=== PATIENT | female | born 1980 | race Caucasian/White ===

== ENCOUNTER 2023-03-16 09:59 | Outpatient (OUT) | payer MEDICAID, SELFPAY ==
--- NOTE | 2023-03-16 10:16 | ECG_ITS ---
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
[2023-03-16 15:18] LABS: Anion Gap 9.7; BUN Creatinine Ratio 28.6; Calcium 9.3 mg/dL (8.5-10.1); Carbon Dioxide 31.5 mmol/L (21.0-32.0); Chloride 102 mmol/L (98-107); Estimated GFR (African America >60 (>=60); Estimated GFR (Non-African Ame >60 (>=60); Glucose 177 mg/dL (74-106); Potassium 5.2 mmol/L (3.5-5.1); Sodium 138 mmol/L (136-145)
== END 2023-03-16 10:00 | disposition home or self-care (01) ==
LOC: PST 10:00
PROVIDERS: PCP Family Medicine; Visit Provider Obstetrics & Gynecology
DX: Z01.812 Encounter for preprocedural laboratory examination (principal); Z01.810 Encounter for preprocedural cardiovascular examination; N94.89 Other specified conditions associated with female genital organs and menstrual cycle; R10.2 Pelvic and perineal pain; E11.9 Type 2 diabetes mellitus without complications
CPT/HCPCS: 36415; 80048; 93005

== ENCOUNTER 2023-03-31 09:32 | Day surgery (SDC) | payer MEDICAID, SELFPAY ==
[2023-03-16 10:21] VITALS: BP 136/82; PULSE 99; RESP 20; TEMP 36.6; O2SAT 95; BMI 45.7
[2023-03-31] VITALS (11 sets, daily range): BP systolic 105–156; BP diastolic 66–94; PULSE 86–97; RESP 15–20; TEMP 35.9–36.2; O2SAT 96–99
[2023-03-31 10:15] LABS: Basophils Percent Auto 0.3 % (0.2-2.0); Eosinophils Absolute Auto 0.1 10^3/uL (0.0-0.7); Eosinophils Percent Auto 0.7 % (0.9-7.0); Hematocrit 43.9 % (36.0-48.0); Hemoglobin 14.2 g/dL (12.0-16.0); Immature Granulocytes Abs Auto 0.02 10^3/uL (0.00-0.03); Immature Granulocytes Pct Auto 0.3 % (0.0-0.5); Lymphocytes Absolute Auto 2.3 10^3/uL (1.2-3.8); Lymphocytes Percent Auto 32.1 % (20.5-60.0); Mean Corpuscular HGB Conc 32.3 g/dL (29.9-35.2); Mean Corpuscular Hemoglobin 28.6 pg (26.7-34.0); Mean Corpuscular Volume 88.5 fL (81.0-99.0); Mean Platelet Volume 9.4 fL (9.5-13.5); Monocytes Absolute Auto 0.3 10^3/uL (0.3-0.8); Monocytes Percent Auto 4.4 % (1.7-12.0); Neutrophils Absolute Auto 4.4 10^3/uL (1.4-6.5); Neutrophils Percent Auto 62.2 % (43.0-75.0); Platelet Count 233 10^3/uL (150-450); Red Blood Count 4.96 10^6/uL (4.20-5.40); Red Cell Distribution Width 12.6 % (11.0-15.0); White Blood Count 7.1 10^3/uL (4.0-11.0)
[2023-03-31 10:23] LABS: HCG Quantitative 2 mIU/mL
[2023-03-31] MEDS: LACTATED RINGER'S SOLUTION 1,000 ML 50 ML IV ×2 (10:40→12:32)
--- NOTE | 2023-03-31 12:20 | P.ON_ITS ---
Brief Operative Note Date of procedure: 03/31/23 Pre-op diagnosis: pelvic pain Post-op diagnosis: same Procedure: NAME OF PROCEDURE: [bilateral laparoscopic salpingectomy, with lt ovarian cystectomy removal of filschie clips] PROCEDURE: The patient was taken back to the Operating Room where she was given general anesthesia without difficulty. She was then prepped and draped in the normal sterile fashion after being placed in a dorsal lithotomy position. A wet sponge stick was placed into the patient's vagina. Attention was then turned to the patient's abdomen, where a scalpel was used to make a small infraumbilical incision. The S retractors were then used to dissect the underlying layers until the fascia could be seen. The fascia was then grasped with Giovanni clamps and tented up. A knife was then used to make a small incision to the fascia. The muscle was identified, at that time two sutures of #0 Vicryl on a GI needle was then used and placed through the fascia. the peritoneum was then identified and entered bluntly. The 10-4 Melba was then placed into the patient's abdomen. This was confirmed with direct visualization of the bowel, using the laparoscope. The patient's abdomen was then insufflated using approximately 4 liters of CO2 gas. Survey of the patient's abdomen demonstrated ovaries were normal in appearance as well as both tubes and uterus. A second and third rt and lt lateral ports which were 5 mm in size, was then placed after the skin incision was made under direct visualization The robotic arms were engaged. The patient's tube on the patient's right side was identified and tented up using a grasper, the vessel sealer apparatus was then used to come across the mesosalpingx from the fimbriated end to the insertion site at the uterus, the tube was then amputated and removed in its entirety along with filschie clips. This was done on the contralateral side. The tubes were the removed from the patients abdomen. lt ovarian cystectomy was performed using the ligasure. Excellent hemostasis was noted. The lateral ports were then moved under direct visualization with excellent hemostasis. All instruments were removed from the patient's abdomen. The fascia was closed using the #0 Vicryl on GI needle. The skin was closed using 4-0 Vicryl subcuticularly. All instruments were removed from the patient's vagina as well. The patient was taken out of the dorsal lithotomy position and placed in the supine position and taken to recovery in stable condition. Sponge, lap and needle counts were correct x2. please note prior to procedure copper iud was removed using ring forceps Anesthesia: KEYON Surgeon: Feliz Benz Nuclear Equipment Operator: Dahiana Zaragoza Estimated blood loss (mL): 5 Pathology: other (lt ovarian cystectomy, bilateral salpingectomy, filschie clips) Condition: stable Disposition: PACU
[2023-03-31] MEDS: PROMETHAZINE HCL 25 MG TABLET PO (12:56)
--- NOTE | 2023-03-31 14:37 | PC.NURSE ---
FOLLOWING STRAIGHT CATH OF PATIENT, 30CC OF CLEAR YELLOW URINE EMPTIED AT THIS TIME.
== END 2023-03-31 14:38 | disposition home or self-care (01) ==
PROVIDERS: PCP Family Medicine; Visit Provider Obstetrics & Gynecology
PROC: (CPT 840; principal; 2023-03-31 11:15)
DX: N83.12 Corpus luteum cyst of left ovary (principal); N83.202 Unspecified ovarian cyst, left side; R10.2 Pelvic and perineal pain; N94.89 Other specified conditions associated with female genital organs and menstrual cycle; Z79.899 Other long term (current) drug therapy; Z79.85 Long-term (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 injectable non-insulin antidiabetic drugs; E66.01 Morbid (severe) obesity due to excess calories; G47.33 Obstructive sleep apnea (adult) (pediatric); E55.9 Vitamin D deficiency, unspecified; E78.5 Hyperlipidemia, unspecified; K58.0 Irritable bowel syndrome with diarrhea; N32.81 Overactive bladder; J30.2 Other seasonal allergic rhinitis; Z90.49 Acquired absence of other specified parts of digestive tract; Z68.39 Body mass index [BMI] 39.0-39.9, adult
CPT/HCPCS: 58301; 58661; 58662; 36415; 51798; 84702; 85025; 88302; 88305; J2704

== ENCOUNTER 2023-05-22 07:24 | Outpatient (OUT) | payer MEDICAID, SELFPAY ==
--- NOTE | 2023-05-22 07:15 | NM_ITS ---
Patient: YAMILA LOZADA Exam Date: 05/22/2023 : 1980 Gender:F Ordering : DR NANCY BETTS . Admission #: [id number] Family : Order #: [id number] CLICK HERE TO VIEW EXAM RADIOLOGY REPORT PROCEDURE: NM BARRON PERF SPECT REST STR COMPARISON: None. INDICATIONS: CHEST PAIN TECHNIQUE: Exam Description: Stress/Rest one day protocol gated SPECT Rest Imagin.6 mCi Tc-99m Cardiolite IV on 05/22/2023 Stress Imaging 31.0 mCi Tc-99m Cardiolite IV on 05/22/2023 Exercise Protocol: 0.4 mg Lexiscan given IV Heart Rate (bpm): Rest: 93 Max: 139 PMHR: 78 Blood Pressure: Rest: 152/88 Max: 160/92 Symptoms: Rest and peak stress ECG findings were abnormal and the exercise portion of the study was abnormal per attending physician Dr. Calhoun due to0.5-1.0mm ST segment depression in inferior leads and T wave changes in lateral leads. For more details please see separate cardiac stress test report. FINDINGS: QUALITY OF STUDY: Excellent. PERFUSION DEFECT: None. LOCATION: N/A SIZE: N/A. SEVERITY: N/A. TYPE: N/A. WALL MOTION: Normal. LV SIZE: Normal. 56 mL. TID / TCD: None; 1.1 LVEF: Normal. Calculated EF 84%. SUMMARY: Myocardial perfusion imaging study is NORMAL. CONCLUSION: 1. Normal nuclear medicine myocardial perfusion scan. Dictated by: Kamron Gunn M.D. on 05/23/2023 at 12:26 Approved by: Kamron Gunn M.D. on 05/23/2023 at 12:50
[2023-05-22] MEDS: REGADENOSON 0.4 MG/5 ML SYRINGE IV (09:27)
--- NOTE | 2023-05-22 13:08 | PM.STRESS ---
Stress Test Stress Test Allergies Allergy/AdvReac Type Severity Reaction Status Date / Time sulfamethoxazole Allergy Hives Verified 03/16/23 10:20 [From Bactrim] trimethoprim [From Bactrim] Allergy Hives Verified 03/16/23 10:20 Requesting physician: Diaz Dalton Procedure: Lexiscan Cardiolite stress test General Information: Reason for Stress Test: Chest pain Cardiac History and Risk Factors: Denies any personal history of cardiovascular disease. Mother has history of NH. Resting 12 - Lead Electrocardiogram: Rate & rhythm: Normal sinus at a rate of 93. [place]: Right axis deviation T-waves: Inverted T-waves in V3-4 and biphasic T waves in V5 ST-segments: Normal orientation Stress Test: Protocol: Alvarez protocol was initiated, but due to difficulty walking, the exercise component was unable to achieve target heart rate and therefore canceled.? Testing was changed to Lexiscan protocol, with injection of 0.4mg Lexiscan IV push followed by Cardiolite. Blood pressure: Initial: 152/88, Maximum: 160/92 Rate & rhythm: Patient remained in sinus rhythm during the exercise and recovery portions of the study.? The maximum heart rate was 139, which was 78% of the maximum predicted heart rate 177. ST-segments & T-waves: After injection of Lexiscan, inverted T waves were prominent in V3-5 and biphasic in V6. 0.5-1mm ST segment depression was noted in II and aVF. Patient response/symptoms: There were no symptoms similar to the chief complaint. Interpretation: This is an abnormal Lexiscan stress test based on T-wave and ST segment changes noted in the inferolateral leads. No reproducible chest pain. Cardiolite imaging interpretation will be reported separately. Clinical correlation required.?
== END 2023-05-22 07:25 | disposition home or self-care (01) ==
LOC: NM 07:24
PROVIDERS: PCP Family Medicine; Visit Provider Family Medicine
DX: R07.9 Chest pain, unspecified (principal)
CPT/HCPCS: 78452; 93017; A9500; J2785

== ENCOUNTER 2023-06-26 09:46 | Outpatient (OUT) | payer MEDICAID, SELFPAY ==
--- NOTE | 2023-06-26 09:51 | MM_ITS ---
Patient: YAMILA LOZADA Exam Date: 06/26/2023 : 1980 Gender:F Ordering : DR ERIK BURR . Admission #: [id number] Family : DR Diaz Dalton . Order #: [id number] CLICK HERE TO VIEW EXAM RADIOLOGY REPORT PROCEDURE: MM TOMOSYNTHESIS SCREENING BI COMPARISON: MG MAMM SCREEN 3D DINAH CAD, 06/22/2022. MG MAMM SCREEN 3D DINAH CAD, 06/21/2021. MG MAMM SCREEN DINAH W CAD, 06/19/2020. MG MAMM DINAH DIAG W CAD, 02/02/2016. INDICATIONS: Screening Calculator Name NCI Breast Cancer Risk Assessment Tool 5 Year Breast Cancer Risk 0.70% Lifetime Breast Cancer Risk 9.90% Personal Breast Cancer No Personal Ovarian Cancer No Treatments None Family Cancers None LOCATION: [facility] BREAST COMPOSITION: Scattered areas fibroglandular density. FINDINGS: DIAGNOSTIC CATEGORY 1--NEGATIVE. RIGHT BREAST: No significant suspicious finding. No significant change has occurred. LEFT BREAST: No significant suspicious finding. No significant change has occurred. RECOMMENDATIONS: ROUTINE MAMMOGRAM AND CLINICAL EVALUATION IN 12 MONTHS. PLEASE NOTE: A NORMAL MAMMOGRAM DOES NOT EXCLUDE THE POSSIBILITY OF BREAST CANCER. A CLINICALLY SUSPICIOUS PALPABLE LUMP SHOULD BE BIOPSIED. Dictated by: Kamron Gunn M.D. on 06/30/2023 at 14:55 Approved by: Kamron Gunn M.D. on 06/30/2023 at 14:59
== END 2023-06-26 09:47 | disposition home or self-care (01) ==
LOC: MAMMO 09:47
PROVIDERS: PCP Family Medicine; Visit Provider Obstetrics & Gynecology
DX: Z12.31 Encounter for screening mammogram for malignant neoplasm of breast (principal)
CPT/HCPCS: 77063; 77067

== ENCOUNTER 2023-08-01 20:45 | Outpatient (REF) | payer MEDICAID, SELFPAY ==
[2023-08-05 17:08] LABS: Age Gdln ACOG Testing Note (.); HPV Aptima Negative (Negative); IGP, Aptima HPV, rfx 16/18,45 Note (.)
== END 2023-08-01 20:46 | disposition home or self-care (01) ==
LOC: LAB 20:45
PROVIDERS: PCP Family Medicine; Visit Provider Obstetrics & Gynecology
DX: Z12.4 Encounter for screening for malignant neoplasm of cervix (principal)
CPT/HCPCS: 87624; G0145

== ENCOUNTER 2023-10-02 09:46 | Outpatient (OUT) | payer MEDICAID, SELFPAY ==
--- OUTSIDE RECORDS SUMMARY | 2023-10-02 09:50 | XMS_ITS | CCD ---
Author Name Unknown Address [address] [place] [address] Organization [facility] Care Team Providers Care Biblical Studies Professor Name Role Phone DIAZ BETTS Attending Unavailchad e ROXANE, DIAZ THOMPSON Primary Care Unavailchad Betts MD, Diaz Thompson Primary Care Provider YAAKOV BERRIOS Referring Unavailable ROXANE, DIAZ THOMPSON Primary Care UnavailGUIDO Rueda Attending Unavailable BRYAN, LEONEL Admitting Unavailable BRYAN, LEONEL Consulting Unavailable AOUADDENGE Min Consulting Unavailable PRICE JUSTIN Consulting Unavailable JACKSON, ROBSON Attending Unavailable JACKSON, ROBSON Admitting Unavailable JACKSON, ROBSON Attending Unavailable JACKSON, ROBSON Attending Unavailable NICOLÁS HALL Admitting Unavailable OSCAR II, ZACK Consulting Unavailable TAMANDREWS Torres, NICOLÁS Attending Unavailable NADERECoy, DR DIAZ Phipps Primary Care Unavailable TAMNICOLÁS CARDONA Consulting Unavailable SHAILA SALAS Consulting Unavailable LENO ., DR VALENCIA Admitting Unavailable LENO ., DR VALENCIA Attending Unavailable LENO ., DR VALENCIA Consulting Unavailable NADERER, DR DIAZ Phipps Primary Care Unavailable ZIEBER, DR HARVINDER Cespedes Consulting Unavailable NADERER, DR DIAZ Phipps Admitting Unavailable NADERER, DR DIAZ Phipps Attending Unavailable NADERER, DR DIAZ Phipps Consulting Unavailable NADERER, DR DIAZ Phipps Primary Care Unavailable LENO ., DR VALENCIA Consulting Unavailable LENO ., DR VALENCIA Admitting Unavailable LENO ., DR VALENCIA Attending Unavailable NADERECoy, DR DIAZ Phipps Primary Care Unavailable WILLIEBCORA, DR HARVINDER Cespedes Consulting Unavailable LENO ., DR VALENCIA Admitting Unavailable LENO ., DR VALENCIA Attending Unavailable LENO ., DR VALENCIA Consulting Unavailable ROXANE, DR DIAZ Phipps Primary Care Unavailable LENO ., DR VALENCIA Admitting Unavailable LENO ., DR VALENCIA Attending Unavailable LENO ., DR VALENCIA Consulting Unavailable ROXANE, DR DIAZ Phipps Primary Care Unavailable ROXANE, DR DIAZ Phipps Primary Care Unavailable MYRNA, DR CHERI Cespedes Attending Unavailable MYRNA, DR CHERI Cespedes Consulting Unavailable MYRNA, DR CHERI Cespedes Admitting Unavailable Diaz Betts MD Primary Care Provider Paul, Arianna Carlos Attending Unavail able ROXANE, DIAZ Phipps Primary Care Unavailable Grant, Arianna Carlos Admitting Unavail able Grant, Arianna Carlos Admitting Unavail able Grant, Arianna Carlos Attending Unavail able [facility] Primary Care Unavailable MAGNOLIA, ARIANNA Phipps Attending Unavailable LENO, ERIK Attending Unavailable LENO, ERIK Attending Unavailable NADJOHNR, DIAZ Attending Unavailable Allergies Allergy Classification Reported Allergen(s) Allergy Type Date of Onset Reaction(s) Facility (3 sources) Sulfamethoxazole / Trimethoprim; Translations: [SULFAMETHOXAZOLE-TR IMETHOPRIM] Drug Allergy 2 Itching, Hives, Other (See Comments) [facility] (1 source) Amoxicillin / Clavulanate Drug Allergy [facility] (1 source) levoFLOXacin Drug Allergy 0 [facility] (2 sources) Sulfamethoxazole / Trimethoprim; Translations: [Bactrim] Drug Allergy 3 [facility] Medications Current Medications Medication Drug Class(es) Dates Sig (Normalized) Sig (Original) acetaminophen 32 mg/ml oral solution (1 source) Start: 09-29-2021 acetaminophen (TYLENOL) 160 MG/5ML solution 650 mg acetaminophen 325 mg / HYDROcodone bitartrate 5 mg oral tablet (1 source) Opioid Agonist take 1 tablet by mouth every six hours as needed for pain HYDROcodone-acetami nophen (NORCO) 5-325 MG per tablet Take 1 tablet by mouth every 6 hours as needed for Pain. 0 Active [id number] 200 actuat albuterol 0.09 mg/actuat metered dose inhaler (2 sources) beta2-Adrenergic Agonist Start: 10-03-2021 End: 11-02-2021 take 2 puff(s) by inhalation every six hours as needed for wheezing albuterol sulfate HFA 108 (90 Base) MCG/ACT inhaler Inhale 2 puffs into the lungs every 6 hours as needed for Wheezing or Shortness of Breath 1 each 0 10/03/2021 11/02/2021 Active Start: 10-01-2021 albuterol (PRO VENTIL) nebulizer solution 2.5 mg atorvastatin 40 mg oral tablet (1 source) HMG-CoA Reductase Inhibitor take 1 tablet by mouth in the morning atorvastatin (LIPITOR) 40 mg tablet Take 1 tablet (40 mg total) by mouth in the morning. 0 Active 24 hr buPROPion hydrochloride 300 mg extended release oral tablet (1 source) Aminoketone take 1 tablet by mouth once daily in the morning buPROPion XL (WELLBUTRIN XL) 300 mg 24 hr tablet Take 1 tablet (300 mg total) by mouth every morning. 0 Active cholecalciferol 0.01 mg oral tablet (1 source) Vitamin D take 1 tablet by mouth in the morning cholecalciferol, vitamin D3, 400 units tablet Take 1 tablet (400 Units total) by mouth in the morning. 0 Active clonazePAM 1 mg oral tablet (1 source) Benzodiazepine take 1 tablet by mouth three times daily as needed for anxiety clonazePAM (KLONOPIN) 1 MG tablet Take 1 mg by mouth 3 times daily as needed for Anxiety. 0 Active glucagon (rdna) 1 mg injection (1 source) Antihypoglycemic Agent Start: glucagon (rDNA) injection 1 mg 150 ml glucose 50 mg/ml injection (4 sources) Start: glucose (GLUTOSE) 40 % oral gel 15 g Start: 09-29-2021 dextrose 5 % s olution Start: 09-28-2021 dextrose 50 % IV solution 250 ml glucose 50 mg/ml / sodium chloride 4.5 mg/ml injection (1 source) Start: 09-28-2021 dextrose 5 % a nd 0.45 % sodium chloride infusion 1 ml heparin sodium, porcine 5000 unt/ml prefilled syringe (1 source) Unfractionated Heparin, Anti-coagulant Start: 09-28-2021 heparin (porcine) injection 5,000 Units hyoscyamine sulfate 0.125 mg oral tablet (1 source) hyoscyamine (ANASPAZ;LEVSIN) [address] 125 mcg under the tongue every 4 hours as needed for Cramping 0 Active insulin aspart, human 100 unt/ml injectable solution (1 source) Insulin Analog insulin aspart U -100 (NovoLOG) 100 unit/mL injection Inject under the skin 3 (three) times a day before meals. 0 Active insulin glargine 100 unt/ml injectable solution (6 sources) Insulin Analog Start: 10-01-2021 insulin glargi ne (LANTUS) injection vial 20 Units Start: 09-29-2021 insulin glargi ne (LANTUS) injection vial 10 Units insulin glargine (LANTUS) 100 unit/mL injection Inject under the skin nightly. 0 Active insulin glargine (LANTUS SOLOSTAR) 100 UNIT/ML injection pen Inject into the skin 0 Active insulin lispro 100 unt/ml injectable solution (3 sources) Insulin Analog Start: 09-29-2021 End: 09-29-2021 insulin lispro (HUMALOG) injection vial 0-18 Units lamoTRIgine 200 mg oral tablet (1 source) Mood Stabilizer, Anti-epileptic Agent take 1 tablet by mouth in the morning lamoTRIgine (LaMICtal) 200 mg tablet Take 1 tablet (200 mg total) by mouth in the morning. 0 Active lisinopril 2.5 mg oral tablet (1 source) Angiotensin Converting Enzyme Inhibitor Start: 07-13-2023 take 1 tablet by mouth in the morning lisinopriL (PRINIVIL,ZESTRI L) 2.5 mg tablet Take 1 tablet (2.5 mg total) by mouth in the morning. 90 tablet 3 07/13/2023 Active loperamide hydrochloride 2 mg oral capsule (1 source) Opioid Agonist Start: 10-01-2021 loperamide (IMODIUM) capsule 2 mg 100 ml magnesium sulfate 10 mg/ml injection (1 source) Start: 09-28-2021 magnesium sulfate 1000 mg in dextrose 5% 100 mL IVPB 2 ml ondansetron 2 mg/ml injection (1 source) Serotonin-3 Receptor Antagonist Start: 09-28-2021 ondansetron (ZOFRAN) injection 4 mg 24 hr oxybutynin chloride 15 mg extended release oral tablet (1 source) Cholinergic Muscarinic Antagonist Start: 06-19-2023 take 1 tablet by mouth every twenty-four hours in the morning oxybutynin XL (DITROPAN XL) 15 mg 24 hr tablet Take 1 tablet (15 mg total) by mouth in the morning. 0 06/19/2023 Active pantoprazole 40 mg delayed release oral tablet (1 source) Proton Pump Inhibitor take 1 tablet by mouth once daily before breakfast pantoprazole (PROTONIX) 40 mg EC tablet Take 1 tablet (40 mg total) by mouth every morning before breakfast. 0 Active pioglitazone 45 mg oral tablet (1 source) Peroxisome Proliferator Receptor alpha Agonist, Peroxisome Proliferator Receptor gamma Agonist, Thiazolidinedione take 1 tablet by mouth in the morning pioglitazone (ACTOS) 45 mg tablet Take 1 tablet (45 mg total) by mouth in the morning. 0 Active polyethylene glycol 3350 59154 mg powder for oral solution (1 source) Osmotic Laxative Start: 09-28-2021 polyethylene glycol (GLYCOLAX) packet 17 g Potassium Chloride (2 sources) Start: 09-30-2021 potassium chloride (KLOR-CON M) extended release tablet 40 mEq Start: 09-28-2021 End: 09-29-2021 potassium chloride 10 mEq/10 0 mL IVPB (Peripheral Line) prazosin 2 mg oral capsule (1 source) alpha-Adrenergic Flory take 1 capsule by mouth once daily prazosin (MINIPRESS) 2 mg capsule Take 1 capsule (2 mg total) by mouth nightly. 0 Active sertraline 100 mg oral tablet (1 source) Serotonin Reuptake Inhibitor take 1 tablet by mouth in the morning sertraline (ZOLOFT) 100 mg tablet Take 1 tablet (100 mg total) by mouth in the morning. 0 Active sodium phosphate 10 mmol in dextrose 5 % 250 mL IVPB (1 source) Start: 09-28-19 sodium phosphate 10 mmol in dextrose 5 % 250 mL IVPB Completed/Discontinued Medications Medication Drug Class(es) Dates Sig (Normalized) Sig (Original) acetaminophen 300 mg / codeine phosphate 30 mg oral tablet (1 source) Opioid Agonist End: 10-02-2021 take 1 tablet by mouth every six hours as needed for pain acetaminophen-code ine (TYLENOL #3) 300-30 MG per tablet Take 1 tablet by mouth every 6 hours as needed for Pain. 0 10/02/2021 Discontinued (Stop Taking at Discharge) azithromycin (ZITHROMAX) 500 mg in dextrose 5% 250 mL IVPB (1 source) Start: 09-28-2021 End: 10-01-2021 azithromycin (ZITHROMAX) 500 mg in dextrose 5% 250 mL IVPB cefTRIAXone (ROCEPHIN) 1000 mg IVPB in 50 mL D5W minibag (1 source) Start: 09-28-2021 End: 10-01-2021 cefTRIAXone (ROCEPHIN) 1000 mg IVPB in 50 mL D5W minibag fluconazole 200 mg oral tablet (1 source) Azole Antifungal Start: 09-29-2021 End: 09-30-2021 fluconazole (DIFLUCAN) tablet 200 mg glipiZIDE 10 mg oral tablet (1 source) Sulfonylurea End: 10-02-2021 take 1 tablet by mouth twice daily before mealtime glipiZIDE (GLUCOTROL) 10 MG tablet Take 10 mg by mouth 2 times daily (before meals) 0 10/02/2021 Discontinued (Stop Taking at Discharge) ibuprofen 600 mg oral tablet (1 source) Nonsteroidal Anti-inflammatory Drug End: 10-02-2021 take 1 tablet by mouth every six hours as needed for pain ibuprofen (ADVIL;MOTRIN) 600 MG tablet Take 600 mg by mouth every 6 hours as needed for Pain 0 10/02/2021 Discontinued (Stop Taking at Discharge) insulin regular (HUMULIN R;NOVOLIN R) 100 Units in sodium chloride 0.9 % 100 mL infusion (1 source) Start: 09-28-2021 End: 09-29-2021 insulin regular (HUMULIN R;NOVOLIN R) 100 Units in sodium chloride 0.9 % 100 mL infusion iohexol (OMNIPAQUE 240) injection 50 mL (1 source) Start: 10-01-2021 End: 10-01-2021 iohexol (OMNIPAQUE 240) injection 50 mL nabumetone 500 mg oral tablet (1 source) Nonsteroidal Anti-inflammatory Drug End: 10-02-2021 take 1 tablet by mouth twice daily nabumetone (RELAFEN) 500 MG tablet Take 500 mg by mouth 2 times daily 0 10/02/2021 Discontinued (Stop Taking at Discharge) naproxen 500 mg oral tablet (1 source) Nonsteroidal Anti-inflammatory Drug End: 10-02-2021 take 1 tablet by mouth twice daily at mealtime naproxen (NAPROSYN) 500 MG tablet Take 500 mg by mouth 2 times daily (with meals) 0 10/02/2021 Discontinued (Stop Taking at Discharge) potassium phosphate 30 mmol in dextrose 5 % 250 mL IVPB (1 source) Start: 10-01-2021 End: 10-01-2021 potassium phosphate 30 mmol in dextrose 5 % 250 mL IVPB sodium bicarbonate 100 mEq in dextrose 5 % 1,000 mL infusion (1 source) Start: 09-30-2021 End: 10-02-2021 sodium bicarbonate 100 mEq in dextrose 5 % 1,000 mL infusion 1000 ml sodium chloride 9 mg/ml injection (1 source) Start: 09-29-2021 End: 09-30-2021 0.9 % sodium chloride infusion Problems Active Problems Problem Classification Problem Date Documented Da te Episodic/Chronic Abdominal pain (4 sources) Unspecified abdominal pain; Translations: [UNSPECIFIED ABDOMINAL PAIN] Onset: 12-26-2022 Episodic Acute and unspecified renal failure (2 sources) Acute renal impairment; Translations: [Acute kidney failure with tubular necrosis] Onset: 09-30-2021 Episodic Anxiety disorders (1 source) Anxiety disorder, unspecified; Translations: [ANXIETY DISORDER UNSPECIFIED] Onset: 01-12-2023 Chronic Developmental disorders (3 sources) Developmental delay; Translations: [Developmental disorder of scholastic skills, unspecified] Onset: 09-29-2021 Chronic Diabetes mellitus with complications (12 sources) Type 1 diabetes mellitus; Translations: [Type 1 diabetes mellitus with ketoacidosis without coma] Onset: 09-27-2021 Chronic Diabetes mellitus without complication (1 source) Type 2 diabetes mellitus without complication; Translations: [Type 2 diabetes mellitus without complications] Onset: 09-30-2009 06-05-2023 Chronic Fluid and electrolyte disorders (2 sources) Metabolic acidosis, increased anion gap (IAG); Translations: [Acidosis] Onset: 09-30-2021 Episodic Menopausal disorders (4 sources) Menopausal and female climacteric states; Translations: [MENOPAUSAL FE CLIMACTERIC STATES] Onset: 09-14-2022 Chronic Menstrual disorders (1 source) Irregular menstruation, unspecified; Translations: [IRREGULAR MENSTRUATION UNSPECIFIED] Onset: 09-16-2022 Chronic Mood disorders (1 source) Major depressive disorder, recurrent, unspecified; Translations: [MAJOR DEPRESSIVE D/O RECURRENT UNS] Onset: 01-12-2023 Chronic Osteoarthritis (1 source) Unspecified osteoarthritis, unspecified site; Translations: [UNSPECIFIED OSTEOARTHRITIS UNS SITE] Onset: 01-25-2022 Chronic Other aftercare (1 source) Other [place] (current) drug therapy; Translations: [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] Onset: 01-12-2023 Episodic Other aftercare (1 source) assisted (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 insulin; Translations: [GROUP HOME CURRENT USE OF INSULIN] Onset: 01-12-2023 Episodic Other gastrointestinal disorders (1 source) Irritable bowel syndrome with diarrhea; Translations: [IRRITABLE BOWEL SYND W/DIARRHEA] Onset: 01-12-2023 Chronic Other gastrointestinal disorders (4 sources) Change in bowel habit; Translations: [CHANGE IN BOWEL HABIT] Onset: 01-10-2023 Episodic Other nervous system disorders (2 sources) Lesion of ulnar nerve, left upper limb; Translations: [Lesion of ulnar nerve, left upper limb] Onset: 11-04-2022 Chronic Other nutritional; endocrine; and metabolic disorders (1 source) Body mass index 40+ - severely obese; Translations: [Morbid (severe) obesity due to excess calories] Onset: 06-05-2023 06-05-2023 Chronic Other screening for suspected conditions (not mental disorders or infectious disease) (9 sources) Encounter for screening for malignant neoplasm of cervix; Translations: [Encounter for screening mammogram for malignant neoplasm of breast] Onset: 06-22-2022 Episodic Pneumonia (except that caused by tuberculosis or sexually transmitted disease) (2 sources) Infective pneumonia; Translations: [Pneumonia, unspecified organism] Onset: 09-29-2021 Episodic Residual codes; unclassified (1 source) Obstructive sleep apnea (adult) (pediatric); Translations: [OBSTRUCTIVE SLEEP APNEA] Onset: 01-12-2023 Chronic Residual codes; unclassified (1 source) Obstructive sleep apnea syndrome; Translations: [Obstructive sleep apnea (adult) (pediatric)] Onset: 09-30-2009 06-05-2023 Chronic Residual codes; unclassified (2 sources) Pain; Translations: [Pain] Onset: 11-04-2022 Episodic Unclassified (2 sources) Post-op; Translations: [Post-op] Onset: 12-07-2022 Past or Other Problems Problem Classification Problem Date Documented Da te Episodic/Chronic Coronary atherosclerosis and other heart disease (1 source) Preinfarction syndrome; Translations: [Unstable angina] Onset: 06-05-2023 Resolved: 07-13-2023 07-13-2023 Chronic Diabetes mellitus without complication (1 source) Hyperglycemia; Translations: [Hyperglycemia, unspecified] Onset: 03-01-2019 03-01-2019 Episodic Immunizations and screening for infectious disease (1 source) Encounter for screening for human papillomavirus (HPV); Translations: [ENC SCREENING HUMAN PAPILLOMAVIRUS] Onset: 07-18-2022 Episodic Mood disorders (1 source) Mood disorders Onset: 06-05-2023 06-05-2023 Nonspecific chest pain (1 source) Chest pain; Translations: [Chest pain, unspecified] Onset: 06-04-2023 06-05-2023 Episodic Other nutritional; endocrine; and metabolic disorders (1 source) Developmental delay; Translations: [Unspecified lack of expected normal physiological development in childhood] Onset: 09-29-2021 06-05-2023 Episodic Phlebitis; thrombophlebitis and thromboembolism (1 source) Personal history of other venous thrombosis and embolism; Translations: [PERS HX OTH VENOUS THROMBOSIS AND EMBO] Onset: 01-25-2022 Episodic Poisoning by other medications and drugs (1 source) Poisoning by insulin and oral hypoglycemic [antidiabetic] drugs, accidental (unintentional), initial encounter; Translations: [POISON INSULIN ORAL HG RX ACC INIT] Onset: 01-25-2022 Episodic Pulmonary heart disease (1 source) Personal history of pulmonary embolism; Translations: [PERSONAL HISTORY PULMONARY EMBOLISM] Onset: 01-25-2022 Episodic Residual codes; unclassified (1 source) Acquired absence of other specified parts of digestive tract; Translations: [ACQ ABSENCE OTH PART DIGESTV TRACT] Onset: 01-25-2022 Episodic Results Test Name Value Interpretation Reference Range Facil ity Consent Formson 09-26-2023 Consent Forms [id number] [facility] Discharge Instructions [id number] 0[facility] 09-25-2023 Anesthesia Note Patient: YAMILA LOZADA Age: 43 years Sex: FEMALE : 1980 Associated Diagnoses: None Author: Ryan Abrams MD Postoperative Information Anesthetic utilized: Monitored anesthesia care. Assessment Anesthetic outcome No anesthetic complications noted. Plan Transfer/ Discharge: Patient can be discharged from PACU when criteria met. Condition good. [Electronically Signed on: 09/25/2023 08:49 EST] __ Ryan Abrams MD [Verified on: 09/25/2023 08:49 EST] __ Ryan Abrams MD [facility] Anesthesia Note Patient: YAMILA LOZADA Age: 43 years Sex: FEMALE : 1980 Associated Diagnoses: None Author: Ryan Abrams MD Preoperative Information Anesthesia history: Family history. Patient history: No prior anesthesia problems. Review of Systems Constitutional: Negative. Cardiovascular: No Chest Pain. No SOB. Health Status Allergies: Allergic Reactions (All) Moderate Bactrim- Rash. Canceled/Inactive Reactions (All) No known allergies Current medications: Home Medications (12) Active atorvastatin 40 mg oral tablet 40 mg = 1 tab(s), Oral, Daily buPROPion 300 mg/24 hours (XL) oral tablet, extended release 300 mg = 1 tab(s), Oral, Daily lamoTRIgine 200 mg oral tablet, extended release 200 mg = 1 tab(s), Oral, Daily Lantus 100 units/mL subcutaneous solution 15, Subcutaneous, Daily nabumetone 500 mg oral tablet 1,000 mg = 2 tab(s), Oral, BID NovoLOG FlexPen 100 units/mL injectable solution sliding scale, Subcutaneous, BID oxybutynin 15 mg/24 hr oral tablet, extended release 15 mg = 1 tab(s), Oral, Daily pantoprazole 40 mg oral delayed release tablet 40 mg = 1 tab(s), Oral, Daily pioglitazone 45 mg oral tablet 45 mg = 1 tab(s), Oral, Daily prazosin 2 mg oral capsule 1 tab(s), Oral, Daily sertraline 100 mg oral tablet 100 mg = 1 tab(s), Oral, Daily Trulicity Pen 0.75 mg/0.5 mL subcutaneous solution 0.75 mg = 0.5 mL, Subcutaneous, qWeek Problem list (past medical history): All Problems Diabetes / SNOMED CT 655750743 / Confirmed HTN (hypertension) / SNOMED CT [id number] / Confirmed Histories Family History: No family history items have been selected or recorded. Procedure history: Genital warts ([id number]). Cholecystectomy (15826242). Social History Electronic Cigarette/Vaping Assessment Electronic Cigarette Use: Never. Alcohol Assessment Use: Never. Tobacco Assessment Never tobacco user Tobacco Use:. Substance Abuse Assessment Substance use: Never. . Social & Psychosocial Habits Alcohol 09/13/2023 Alcohol Use: Never Substance Use 09/13/2023 Substance use: Never Tobacco 09/13/2023 Smoking tobacco use: Never tobacco user Electronic Cigarette/Vaping 09/13/2023 Electronic Cigarette Use: Never . Physical Examination Pain assessment: Self-reports pain The location is: operative site. . General: Alert and oriented, No acute distress. Airway: Mallampati classification: II (soft palate, fauces, uvula visible). Temporomandibular joint mobility: Good. Mouth: Dentures ( Upper and lower dentures ). Respiratory: Lungs are clear to auscultation. Cardiovascular: Regular rhythm. Neurologic: Alert, Oriented. Review / Management Laboratory Results Plan [place] [employer]#( ASA) physical status classification: Class II. Anesthetic Preoperative Plan Anesthesia: Monitored anesthesia care. Anesthetic plan, risks, benefits, and alternatives discussed with the patient and/or family. Patient verbalized understanding. Informed consent was given. Anesthetic technique: Monitored anesthesia care, When patient asked about lamictal she said 'i don't know why i take that'. I asked if she ever had any seizures or a history; she said she had one when she was 15 and 'none since'. Otherwise, all questions answered and informed consent obtained. . [Electronically Signed on: 09/25/2023 07:49 EST] __ Ryan Abrams MD [Verified on: 09/25/2023 07:49 EST] __ Ryan Abrams MD [facility] Inpatient Patient Summaryon 09-25-2023 Inpatient Patient Summary [address] [id number] Patient Discharge Instructions Name: YAMILA LOZADA : 1980 Patient Address: [facility] [address] Primary Care Provider: Name: DIAZ BETTS After you are discharged if you find you have any questions, please, call [phone] ext [phone] to speak to a nurse. Discharge Diagnosis: Carpal tunnel syndrome, left; HTN (hypertension); Preop testing; Type 2 diabetes mellitus Prescription Information: If you have been given a prescription for narcotics, seek immediate medical attention if you have any difficulty breathing or any sudden status changes such as confusion and sleepiness. If you or anyone you know is experiencing suicidal thoughts, mental health, alcohol and/or drug addiction problems; contact the [facility] 27/03 Crisis Hotline -Text 2ZSMZ yb 889769. If you received any narcotics, sedation, or any other medication that causes drowsiness for the next 24 hours, unless otherwise directed: ? Do not drive a car. ? Do not operate machinery such as power tools, lawn mowers, drills, sewing machines, or stoves ? Avoid alcoholic beverages and drugs for allergies, nerves, or sleep ? Do not make important personal or business decisions or sign any legal documents [facility] would like to thank you for allowing us to assist you with your healthcare needs. The following includes patient education materials and information regarding your injury/illness. YAMILA LOZADA has been given the following list of follow-up instructions, prescriptions, and patient education materials: Follow-up Instructions With: Address: When: Barry Martinez [address] [place] [address] [place] [address] Business (1) 10/05/2023 11:00 AM Medications During the course of your visit, your medication list was updated with the most current information. The details of those changes are reflected below: Medications to Continue That Have Not Changed Other Medications atorvastatin (atorvastatin 40 mg oral tablet) 1 tab(s) Oral (given by mouth) every day. buPROPion (buPROPion 300 mg/24 hours (XL) oral tablet, extended release) 1 tab(s) Oral (given by mouth) every day. dulaglutide (Trulicity Pen 0.75 mg/0.5 mL subcutaneous solution) 0.5 Milliliter Subcutaneous (under the skin) every week. insulin aspart (NovoLOG FlexPen 100 units/mL injectable solution) sliding scale Subcutaneous (under the skin) 2 times a day (scheduled). insulin glargine (Lantus 100 units/mL subcutaneous solution) 15 Subcutaneous (under the skin) every day. lamoTRIgine (lamoTRIgine 200 mg oral tablet, extended release) 1 tab(s) Oral (given by mouth) every day. nabumetone (nabumetone 500 mg oral tablet) 2 tab(s) Oral (given by mouth) 2 times a day (scheduled). oxyBUTYnin (oxybutynin 15 mg/24 hr oral tablet, extended release) 1 tab(s) Oral (given by mouth) every day. pantoprazole (pantoprazole 40 mg oral delayed release tablet) 1 tab(s) Oral (given by mouth) every day. pioglitazone (pioglitazone 45 mg oral tablet) 1 tab(s) Oral (given by mouth) every day. prazosin (prazosin 2 mg oral capsule) 1 tab(s) Oral (given by mouth) every day. sertraline (sertraline 100 mg oral tablet) 1 tab(s) Oral (given by mouth) every day. It is important to always keep an active list of medications available so that you can share with other providers and manage your medications appropriately. As an additional courtesy, we are also providing you with your final active medications list that you can keep with you. atorvastatin (atorvastatin 40 mg oral tablet) 1 tab(s) Oral (given by mouth) every day. buPROPion (buPROPion 300 mg/24 hours (XL) oral tablet, extended release) 1 tab(s) Oral (given by mouth) every day. dulaglutide (Trulicity Pen 0.75 mg/0.5 mL subcutaneous solution) 0.5 Milliliter Subcutaneous (under the skin) every week. insulin aspart (NovoLOG FlexPen 100 units/mL injectable solution) sliding scale Subcutaneous (under the skin) 2 times a day (scheduled). insulin glargine (Lantus 100 units/mL subcutaneous solution) 15 Subcutaneous (under the skin) every day. lamoTRIgine (lamoTRIgine 200 mg oral tablet, extended release) 1 tab(s) Oral (given by mouth) every day. nabumetone (nabumetone 500 mg oral tablet) 2 tab(s) Oral (given by mouth) 2 times a day (scheduled). oxyBUTYnin (oxybutynin 15 mg/24 hr oral tablet, extended release) 1 tab(s) Oral (given by mouth) every day. pantoprazole (pantoprazole 40 mg oral delayed release tablet) 1 tab(s) Oral (given by mouth) every day. pioglitazone (pioglitazone 45 mg oral tablet) 1 tab(s) Oral (given by mouth) every day. prazosin (prazosin 2 mg oral capsule) 1 tab(s) Oral (given by mouth) every day. sertraline (sertraline 100 mg oral tablet) 1 tab(s) Oral (given by mouth) every day. Take only the medications listed above. Contact your doctor pr (more content not included)... [facility] Intra[facility] MAGR Intra-Op Record Summary Primary Physician: Arianna Miller DO Finalized Date/Time: 09/25/23 08:48:16 Pt. Name: YAMILA LOZADA/Sex: 1980 FEMALE Med Rec #: [id number] Physician: Arianna Miller DO Financial #: [id number] Pt. Type: D Room/Bed: / Admit/Disch: 09/25/23 06:07:34 - Institution: Case Times MAGR Entry 1 Patient In Room Time 09/25/23 08:10:00 Out Room Time 09/25/23 08:41:00 Anesthesia Start Time 09/25/23 08:10:00 Stop Time 09/25/23 08:41:00 Surgery Start Time 09/25/23 08:20:00 Stop Time 09/25/23 08:33:00 Last Modified By: Allyson Alfred RN 09/25/23 08:43:05 Case Attendance MAGR Entry 1 Entry 2 Entry 3 Case Attendee Arianna Miller Lauren L RN Fullam, William MD Andrew DO Role Performed Surgeon - Primary Architectural Drafting Instructor Anesthesiologist of Record Time In 09/25/23 08:10:00 09/25/23 08:10:00 09/25/23 08:10:00 Time Out 09/25/23 08:38:00 09/25/23 08:41:00 09/25/23 08:41:00 Procedure Carpal Tunnel Carpal Tunnel Carpal Tunnel Release(Left) Release(Left) Release(Left) Last Modified By: Allyson Alfred RN, Lauren L RN Wheeler, Lauren L RN 09/25/23 08:43:33 09/25/23 08:43:21 09/25/23 08:43:21 Entry 4 Entry 5 Case Attendee Da CHIEF COUNSELDayna CHIEF COUNSEL Mila Wyatt CHIEF COUNSEL CSFA Role Performed Health Education Director Scrub Relief Time In 09/25/23 08:10:00 09/25/23 08:10:00 Time Out 09/25/23 08:41:00 09/25/23 08:41:00 Procedure Carpal Tunnel Carpal Tunnel Release(Left) Release(Left) Last Modified By: Allyson Alfred RN, Lauren L RN 09/25/23 08:43:21 09/25/23 08:43:21 Surgical Procedures MAGR Pre-Care Text: A.20 Verifies operative procedure, surgical site, and laterality Im.150 Develops individualized plan of care Entry 1 Procedure Carpal Tunnel Release Primary Procedure Yes Primary Surgeon Arianna Miller DO Surgeon Comment Carpal Tunnel Release Start 09/25/23 08:20:00 Left Wrist Stop 09/25/23 08:33:00 Anesthesia Type MAC Surgical Service Orthopedics Wound Class Clean Technique Details Closure Technique Primary Entire procedure No was performed via laparoscope or robotic assistance Last Modified By: Allyson Alfred RN 09/25/23 08:43:23 Post-Care Text: O.730 The patient's care is consistent with the individualized perioperative plan of care General Case Data MAGR Pre-Care Text: A.350.1 Classifies surgical wound Entry 1 Case Information OR MAGR OR 05 Case Level Level 3 Wound Class Clean Specialty Orthopedics ASA Class 2 Diagnosis Preop Diagnosis Carpal Tunnel syndrome Postop Same As Preop Yes Left wrist Postop Diagnosis Carpal Tunnel syndrome Left wrist Blunt or No Is the procedure No penetrating injury considered occured prior to Emergent/Urgent? the start of the procedure: Last Modified By: Allyson Alfred RN 09/25/23 08:22:55 Post-Care Text: O.760 Patient receives consistent and comparable care regardless of the setting Time Out MAGR Entry 1 Procedure(s) Carpal Tunnel Release(Left) Time Out Checklist Verifications Patient Verified Yes Allergies Verified Yes Procedure to be Yes Presence of Yes Performed Verified Necessary with Consent Procedural Equipment, Devices, and Implants Verified Site Verification, Yes Site Marking, Site Marking Alternative, and/or Site Marking Exception in Accordance with Facility Policy Anesthesia Review Antibiotic Received n/a All Anesthesia Yes Within an Concerns Addressed Appropriate Time Interval Prior to Surgical Incision Surgeon Review Anticipated Blood Yes Loss Risk, Expected Case Duration, and Critical and Non-Routine Steps to be Performed Addressed Nurse Review Team Introductions Yes Equipment Concerns Yes Completed Addressed Fall Risk Concerns Yes Fire Risk Yes Addressed Assessment Completed and Interventions Performed Skin Assessment Yes Diagnostic and No Concerns Addressed Radiological Test Results Displayed are Appropriate and Labeled Skin Prep Allowed n/a Sterilization Yes to Dry Prior to Concerns Addressed Incision Venous n/a Laser Safety n/a Thromboembolism Measures Implemented Prophylaxis Ordered Latex Precautions Yes Other Concerns Yes Implemented Addressed Time Out Arianna Miller Time Out Time 09/25/23 08:18:00 Participants Aubrie Carlos DO, Lauren L RN, Ryan Abrams MD, Da CHIEF COUNSEL, Dayna CHIEF COUNSEL CSFA, Mila Wyatt CHIEF COUNSEL Last Modified By: Allyson Alfred RN 09/25/23 08:29:17 Patient Positioning MAGR Pre-Care Text: A.280 Identifies baseline musculoskeletal status Im.40 Positions the patient Im.80 Applies safety devices Entry 1 Procedure Carpal Tunnel Body Position Supine Release(Left) Left Arm Position Resting at Side Right Arm Position Extended on Hand Table Left Leg Position Extended Right Leg Position Extended Feet Uncrossed? Yes Press Points (more content not included)... [facility] MAGR Postoperative Record MAGR Phase II Record Summary Primary Physician: Arianna Miller DO Finalized Date/Time: 09/25/23 10:39:28 Pt. Name: YAMILA LOZADA/Sex: 1980 FEMALE Med Rec #: [id number] Physician: Arianna Miller DO Financial #: [id number] Pt. Type: D Room/Bed: / Admit/Disch: 09/25/23 06:07:34 - Institution: Phase II Case Times MAGR Pre-Care Text: Patient is free from s/s of injury. Patient remains free from compromised physical state related to surgery or anesthesia. Patient comfort maintained. Patient/family verbalize understanding of discharge instructions. Entry 1 In PACU II 09/25/23 08:41:00 Discharge from PACU 09/25/23 09:58:00 II Last Modified By: Jennyfer Gresham RN 09/25/23 10:39:24 Post-Care Text: The patient remains free from s/s of injury. Patient's vital signs stable, circulation maintained, return to preop mental and physical status, opsite/dressing intact, minimal or absent nausea and vomiting, tolerates po intake. Patient verbalizes adequate pain control. Patient/family express understanding of discharge instructions. Finalized By: Jennyfer Gresham RN Document Signatures Signed By: Jennyfer Gresham RN 09/25/23 10:39 [facility] MAGR Preoperative Recordon 0 09-25-2023 MAGR Preoperative Record MAGR Pre-Op Record Summary Primary Physician: Arianna Miller DO Finalized Date/Time: 09/25/23 08:48:38 Pt. Name: YAMILA LOZADA/Sex: 1980 FEMALE Med Rec #: [id number] Physician: Arianna Miller DO Financial #: [id number] Pt. Type: D Room/Bed: / Admit/Disch: 09/25/23 06:07:34 - Institution: Pre-Op Case Times MAGR Pre-Care Text: Patient will be optimally prepared for surgery. Patient is free from s/s of injury. Provide information to patient/family related to plan of care. Verify patient allergies. Confirm identity and verify consent before the operative or invasive procedure. Entry 1 Patient Arrival Time 09/25/23 06:37:00 Preop Departure 09/25/23 08:09:00 Last Modified By: Allyson Alfred RN 09/25/23 08:48:32 Post-Care Text: Patient is prepared mentally and physically and is ready for surgery. The patient remains free from s/s of injury. Patient/family express understanding of plan of care and participate in decisions affecting his or her perioperrative plan of care. Allergies documented appropriately. Patient identifiers and consent correct. General Comments: Pt arrives to w ambulatory. Pt denies cp, sob, cough or flu like symptoms. Pt denies pacemaker/defibilla tor or sleep apnea. Finalized By: Allyson Alfred RN Document Signatures Signed By: Allyson Alfred RN 09/25/23 08:48 [facility] Patient Handouton 09-25-[address] MILLER'S POST OPERATIVE CARPAL TUNNEL INSTRUCTIONS: SURGEON'S WRITTEN INSTRUCTIONS: 1. Keep your hand elevated above your elbow for the first 24 hours after surgery. 2. Wiggle your fingers frequently while awake. 3. DO NOT lift heavy objects or media analyst forcefully with your hand. 4. Change your dressing in 1 day and apply an marco a bandage as directed with the thumb tucked towards the palm of your hand. This keeps the tension off your incision. 5. You may shower in 1 day but do not submerge your hand under water. Put a 4x4 gauze and the marco a bandage back on after you shower. 6. If you have any problems or concerns, please call the office at [phone]. 7. Follow up as scheduled. [facility] Test Serum 1on Preg Serum Internal Control OK [facility] Comment on above: Performed By: #### 3 [id number] ####[facility] (DEFAULT)[address] [place] [address] Test Serum Qual Negative [facility] Comment on above: Performed By: #### 3 [id number] ####[facility] (DEFAULT)[address] [place] [address] 85457 Progress Note - Nurseon 09-04 Progress Note - Nurse Spoke with pt and informed her to be here at 0630 and NPO after MN, she verbalizes understanding. [Electronically Signed on: 09/22/2023 09:47 EST] __ Kalyani Ortiz RN [Verified on: 09/22/2023 09:47 EST] __ Kalyani Ortiz RN [facility] Progress Note - Nurseon 09-04 Progress Note - Nurse Dr Lares reviews pt chart and no new orders were received. [Electronically Signed on: 09/15/2023 11:46 EST] __ Kalyani Ortiz RN [Verified on: 09/15/2023 11:46 EST] __ Kalyani Ortiz RN [facility] Progress Note - Nurseon 09-04 Progress Note - Nurse PAT review done per Dr. Lares, order received. [Electronically Signed on: 09/14/2023 14:38 EST] __ Karlene Moon RN [Verified on: 09/14/2023 14:38 EST] __ Karlene Moon RN [facility] .Auto Diff 1on 09-13-2023 Auto Fountain % 4 % Normal 1-12 [facility] Comment on above: Performed By: #### 7 [id number], [id number], [id number] ####[facility] (DEFAULT)[address] [place] [address] 49563 Baso Abs# 0.0 x10 Normal 0.0-0.2 [facility] Comment on above: Performed By: #### 7 [id number], [id number], [id number] ####[facility] (DEFAULT)[address] [place] [address] 09648 Basophils/100 WBC (Bld) 0.8 % Normal 0.2-2.0 [facility] Comment on above: Performed By: #### 7 [id number], [id number], [id number] ####[facility] (DEFAULT)[address] [place] [address] 19064 Eos Abs# 0.1 x10 Normal 0.0-0.4 [facility] Comment on above: Performed By: #### 7 724559, [id number], [id number] ####[facility] (DEFAULT)[address] [place] [address] 43000 Eosinophils/100 WBC (Bld) 1.2 % Normal 0.9-4.0 [facility] Comment on above: Performed By: #### 7 [id number], [id number], [id number] ####[facility] (DEFAULT)[address] [place] [address] 51165 Lymph Abs# 2.0 x10 Normal 1.3-2.9 [facility] Comment on above: Performed By: #### 7 [id number], [id number], [id number] ####[facility] (DEFAULT)[address] [place] [address] 52316 Lymphocytes/100 WBC (Bld) 40 % Normal 14-48 [facility] Comment on above: Performed By: #### 7 702819, [id number], [id number] ####[facility] (DEFAULT)[address] [place] [address] 76058 Fountain Abs# 0.2 x10 Normal 0.0-0.8 [facility] Comment on above: Performed By: #### 7 456219, [id number], [id number] ####[facility] (DEFAULT)[address] [place] [address] 89369 Neut Abs# 2.7 x10 Normal 1.5-9.2 [facility] Comment on above: Performed By: #### 7 585514, [id number], [id number] ####[facility] (DEFAULT)[address] [place] [address] 30252 Neutrophils/100 WBC (Bld) 54 % Normal 44-88 [facility] Comment on above: Performed By: #### 7 182426, [id number], [id number] ####[facility] (DEFAULT)[address] [place] [address] 09521 BMP Standardon 09-13-2023 eGFR Non AA >60 Invalid Interpretation Code [facility] Comment on above: Performed By: #### 7 823010, [id number], [id number] ####[facility] (DEFAULT)[address] [place] [address] 72106 eGFR AA >60 Invalid Interpretation Code [facility] Comment on above: Performed By: #### 7 482598, [id number], [id number] ####[facility] (DEFAULT)[address] [place] [address] 40042 Anion gap [Moles/Vol] 10.4 mmol/L Normal 5.0-19.0 [facility] Comment on above: Performed By: #### 7 618294, [id number], [id number] ####[facility] (DEFAULT)[address] [place] [address] 99907 Calcium [Mass/Vol] 8.9 mg/dL Normal 8.9-10.3 [facility] Comment on above: Performed By: #### 7 [id number], [id number], [id number] ####[facility] (DEFAULT)[address] [place] [address] 73968 Chloride [Moles/Vol] 102 mmol/L Normal 101-111 [facility] Comment on above: Performed By: #### 7 214453, [id number], [id number] ####[facility] (DEFAULT)[address] [place] [address] 49447 CO2 [Moles/Vol] 27 mmol/L Normal 21-32 [facility] Comment on above: Performed By: #### 7 082592, [id number], [id number] ####[facility] (DEFAULT)[address] [place] [address] 16321 Creatinine [Mass/Vol] 0.76 mg/dL Normal 0.60-1.30 [facility] Comment on above: Performed By: #### 7 135662, [id number], [id number] ####[facility] (DEFAULT)[address] [place] [address] 37776 Glucose [Mass/Vol] 276.0 mg/dL High 74.0-118.0 [facility] Comment on above: Performed By: #### 7 783474, [id number], [id number] ####[facility] (DEFAULT)[address] [place] [address] 74495 Osmolality 282 mOsm/L Invalid Interpretation Code [facility] Comment on above: Performed By: #### 7 213295, [id number], [id number] ####[facility] (DEFAULT)[address] [place] [address] 32841 Potassium [Moles/Vol] 4.4 mmol/L Normal 3.6-5.1 [facility] Comment on above: Performed By: #### 7 818348, [id number], [id number] ####[facility] (DEFAULT)[address] [place] [address] 00428 Sodium [Moles/Vol] 135.0 mmol/L Low 136.0-144.0 [facility] Comment on above: Performed By: #### 7 843771, [id number], [id number] ####[facility] (DEFAULT)[address] [place] [address] 54931 Urea nitrogen [Mass/Vol] 18 mg/dL Normal 8-26 [facility] Comment on above: Performed By: #### 7 760208, [id number], [id number] ####[facility] (DEFAULT)[address] [place] [address] Urea nitrogen/Creatinine [Mass ratio] 23.6 mg/mg High 4.6-16.2 [facility] Comment on above: Performed By: #### 7 907649, [id number], [id number] ####[facility] (DEFAULT)[address] [place] [address] CBC w/ Auto Diffon Erythrocyte distribution width (RBC) [Ratio] 13.5 % Normal 11.5-15.0 [facility] Comment on above: Performed By: #### 7 938843, [id number], [id number] ####[facility] (DEFAULT)[address] [place] [address] Hematocrit (Bld) [Volume fraction] 42.9 % High 33.7-40.4 [facility] Comment on above: Performed By: #### 7 918353, [id number], [id number] ####[facility] (DEFAULT)[address] [place] [address] Hemoglobin (Bld) [Mass/Vol] 14.1 g/dL Normal 11.3-15.9 [facility] Comment on above: Performed By: #### 7 590561, [id number], [id number] ####[facility] (DEFAULT)[address] [place] [address] Man Diff? Auto Invalid Interpretation Code [facility] Comment on above: Performed By: #### 7 856620, [id number], [id number] ####[facility] (DEFAULT)[address] [place] [address] MCH (RBC) [Entitic mass] 28 pg Normal 24-34 [facility] Comment on above: Performed By: #### 7 794048, [id number], [id number] ####[facility] (DEFAULT)[address] [place] [address] MCHC (RBC) [Mass/Vol] 33 g/dL Normal 26-37 [facility] Comment on above: Performed By: #### 7 065444, [id number], [id number] ####[facility] (DEFAULT)[address] [place] [address] 32660 MCV (RBC) [Entitic vol] 87 fL Normal 81-100 [facility] Comment on above: Performed By: #### 7 190674, [id number], [id number] ####[facility] (DEFAULT)[address] [place] [address] 14579 Platelet 206 x10 Normal 138-427 [facility] Comment on above: Performed By: #### 7 157167, [id number], [id number] ####[facility] (DEFAULT)[address] [place] [address] 97572 Platelet mean volume (Bld) [Entitic vol] 6.9 fL Normal 6.3-10.2 [facility] Comment on above: Performed By: #### 7 206552, [id number], [id number] ####[facility] (DEFAULT)[address] [place] [address] 68240 RBC 4.95 x10 Normal 3.70-5.30 [facility] Comment on above: Performed By: #### 7 759069, [id number], [id number] ####[facility] (DEFAULT)[address] [place] [address] 27322 WBC 5.1 x10 Normal 3.5-10.5 [facility] Comment on above: Performed By: #### 7 457699, [id number], [id number] ####[facility] (DEFAULT)[address] [place] [address] 37893 PREG HCG QUALon 01-10-2023 , QUAL Negative Normal NEGATIVE [facility] Comment on above: Performed By: #### P REG #### [facility] [address] [address] [address] Dipika Rapp US PELVIS AND TRANSVAGon US PELVIS AND TRANSVAG EXAMINATION: US PELVIS AND TRANSVAG HISTORY: Abdominal pain ; left pelvic pain for several months COMPARISON: Ultrasound pelvis 12/30/2019 TECHNIQUE: Transabdominal and transvaginal sonographic examination. FINDINGS: UTERUS: Normal size, contour, and echotexture. A few tiny calcifications suspected within scott of cervix, likely dystrophic. No appreciable mass. Uterus size: 5.2 x 3.4 x 2.1 cm ENDOMETRIUM: Normal homogeneous appearance. Endometrial thickness: 2 mm RIGHT OVARY: Normal size and appearance. Duplex Doppler demonstrates normal waveform and flow; resistive index 0.5. Ovary size: 1.5 x 2.3 x 1.8 cm LEFT OVARY: Not seen. CUL-DE-SAC: Unremarkable. No significant free fluid. BLADDER: Unremarkable. OTHER: None. IMPRESSION: 1. Slightly limited examination. 2. Left ovary could not be identified. No suspicious left adnexal findings. 3. Grossly unremarkable uterus and right ovary. Electronically authenticated by: HARVINDER DELEON Date: 2022-12-26 14:02 Normal [facility] Office Visiton 12-07-2022 Follow-up visit [id number] Yamila Lozada 1980 F Date Provider Department Center 12/07/2022 Juhi-ROBSON PAZ MP ORTHO MPORTHO Family History Problem Relation Age of Onset Diabetes Mother Leukemia Father Family Status - Relation Status Age at Mother Father Level of Service:62341 [place] POSTOP FOLLOW UP VISIT RELATED TO ORIGINAL PX (GC) Reason for Visit and Comments: Post-op [483] Normal [facility] HPon 11-21-2022 HP H&P reviewed. The patient was examined and there are no changes to the H&P. Normal [facility] HP H&P reviewed. The patient was examined and there are no changes to the H&P. [facility] NURSNOTEon 11-21-2022 NURSNOTE Patients operative hand warm to touch, and sorin at the bedside to evaluate. Okay for pt to go home, Good capillary refill, soft no swelling noted. Normal [facility] OPNOTEon 11-21-2022 OPNOTE ORTHOPAEDIC SURGERY OPERATIVE REPORT Date of Surgery: 11/21/2022 Surgeon: Robson Paz MD Squad Leader: Sorin Farooq MD Preoperative Diagnosis: Left cubital tunnel syndrome Postoperative Diagnosis: Left cubital tunnel syndrome Procedures Performed: Left in situ ulnar nerve decompression Anesthesia: Monitored anesthesia care with regional block IV Fluids: Per anesthesia record Tourniquet Time: < 30 minutes Estimated Blood Loss: 0 mL Complications: none Implants: none Specimens: none Intraoperative Findings: Noted was thickening of Correia ligament overlying the ulnar nerve as it passed through the cubital tunnel. This was fully released and there was no residual compression on the ulnar nerve. The ulnar nerve was stable in flexion and extension. Indications For Procedure: Yamila Lozada is a 42 y.o. female with a history of left cubital tunnel syndrome, which has been refractory to conservative treatment. The patient elected to undergo operative intervention after discussing the risks, benefits, alternatives of the procedure, and she presented to the preoperative holding area on the day of surgery. Procedure Detail: The patient was met in the preoperative holding area where their identity, procedure to be performed, and correct operative site were identified. The operative site was marked with the attending's initials. The patient was taken back to the operative theater where they were placed under monitored anesthesia care with regional block without complication. The patient's left upper extremity was then prepped and draped in the usual sterile fashion. A preoperative timeout was performed, confirming the patient's identity, procedure to be performed, and correct operative site. Everyone present was in agreement. Preoperative antibiotics were administered with Ancef. We began by marking out an incision along the course of the ulnar nerve between the medial epicondyle and the olecranon. We took our incision down through skin and subcutaneous tissue. Meticulous hemostasis was performed with bipolar. We then identified the nerve as it coursed around medial epicondyle. This was released from overlying compression of Correia ligament, the cubital tunnel was actually the site of the most severe compression. We then released proximally and confirmed that there was no residual compression of the nerve, the nerve was gliding freely here. We took our release distally until the nerve was completely released through the level of the FCU fascia and deep into the musclebellies. The elbow was then placed through a range of motion and the ulnar nerve was noted to remain stable within the groove. There were no more residual sites of compression of the nerve, it was free of compression and stable through motion. We then copiously irrigated the wound with normal saline and closed the incision with 3-0 Vicryl for the deep dermal layer, and a running subcuticular Monocryl for the skin. All counts were correct x2 at this time. Sterile dressing was applied and the tourniquet was deflated. The drapes were taken down and the patient was awoken from anesthesia without complication. They were transferred back to their hospital bed and taken to PACU in stable condition. Postoperative Plan: The patient may be partial weightbearing < 10 pounds to the left upper extremity, though she has been advised to avoid heavy use of the arm and to avoid excessive elbow flexion until the incision heals. The patient will leave their surgical dressing in place for approximately 3-5 days. The patient will be discharged home with a short course of narcotic pain medication per protocol as well as ibuprofen. The patient will follow up with Dr. Robson Paz MD in clinic in approximately 10-14 days time for clinical check and suture removal. Dr. Robson Paz MD was present for the entirety of the case. Sorin Farooq MD I was present for the entirety of the procedure(s). Robson Paz MD Normal [facility] POCT GLUCOSE METER UNSOLICIT ED RESULTSon 11-21-2022 Glucose [Mass/Vol] 74 mg/dL Normal 70-105 [facility] Comment on above: Result Comment: [email or web address] Performed By: #### L [id number] #### [facility] ([facility]) [address] [place] [address] Glucose [Mass/Vol] 53 mg/dL Low 70-105 [facility] Comment on above: Result Comment: [email or web address] Performed By: #### L [id number] ####[facility] ([facility])[address] [place] [address] Glucose [Mass/Vol] 73 mg/dL Normal 70-105 [facility] Comment on above: Result Comment: [email or web address] Performed By: #### L [id number] ####[facility] ([facility])[address] [place] [address] Glucose [Mass/Vol] 44 mg/dL Invalid Interpretation Code 70-105 [facility] Comment on above: Result Comment: [email or web address] Critical Value Noted Performed By: #### L [id number] ####[facility] [place] [address] Glucose [Mass/Vol] 53 mg/dL Low 70-105 [facility] Comment on above: Result Comment: [facility] er4 Performed By: #### L [id number] ####[facility] FANNY IZAGUIRRE)MAHAMED SINGH [id number] HPon 11-04-2022 HP ---- Attestation signed by Robson Paz MD at 11/08/2022 2:35 PM I personally saw and examined the patient on the same date of service as resident/fellow . I discussed the findings and therapeutic plan with the resident/fellow . I agree with the documentation, except for any edits/updates below. Teaching Physician's Revisions: ---- Subjective Chief complaint: Chief Complaint Patient presents with Left Arm - Pain 11/04/22 Yamila Lozada is a 42 y.o. year old hgzr-nfjx-faxahsss female presenting for evaluation of left hand pain/numbness. Patient states that the numbness and pain symptoms in her hand been going on for approximately 1 year. She localizes this pain to the small finger, ring finger, long finger. States that activity makes this pain or numbness worse. Patient has tried physical therapy, Occupational Therapy, and daytime/nighttime splinting with little to no relief of her pain. Patient has not tried any procedural or surgical intervention. However, patient states that she was diagnosed with frozen shoulder a little over a year ago and received a manipulation under anesthesia. This did not improve her hand and wrist symptoms. Patient was told by another orthopedic provider that she may have cubital tunnel syndrome. EMG/NCS studies were performed 2022 which revealed prolonged latency of the left ulnar sensory nerve with diminished proximal amplitudes of the left ulnar motor nerve and associated slowing conduction velocities. Denies numbness, tingling, and weakness of the right hand Previous Treatments: As per HPI ROS: Denies fevers, chills, and other constitutional symptoms. Denies shortness of breath. Patient History History reviewed. No pertinent surgical history. Past Medical History: Diagnosis Date Diabetes mellitus ([facility]) Objective General: Body mass index is 41.38 kg/m???. There were no vitals filed for this visit. No acute distress, comfortable Respiratory: Unlabored breathing with normal rate, no cough Cardiovascular: Warm well perfused extremities Psych: Appropriate mood behavior Left Hand: Inspection- no ecchymosis, no edema, no effusion Thumb: normal A1 carina and AROM, Index finger: normal A1 carina and AROM, Long finger: normal A1 carina and AROM, Ring finger: normal A1 carina and AROM, and Small finger: normal A1 carina and AROM Strength: media analyst 5/5, thumb 5/5, interossei 5/5 Sensation: intact over median, ulnar, and radial nerve distributions. Tinel (-) at carpal tunnel Carpal compression test (-) Tayla's test (-) Tinel (+) at cubital tunnel. Positive Froment's sign. Positive Wartenberg's sign. Positive shoulder internal rotation test. Positive elbow flexion test. Cardiovascular: Well-perfused digits Imaging: No imaging performed today in clinic. EMG/NCS studies performed at outside facility. Results described above. Assessment/Plan Yamila Lozada is a 42 y.o. year old female with Cubital tunnel syndrome on left Surgical interventions including: Cubital tunnel release with/without ulnar nerve transposition -Given patient history, physical exam, and other diagnostic findings, patient likely has moderate to severe cubital tunnel syndrome - Instructed patient that it may take multiple months for her to achieve a full recovery with no symptoms given the severity of her current condition - Patient expressed good understanding of the risk, benefits, and alternatives to surgical treatment, patient states that she would like to proceed with surgical intervention - Instructed patient that our surgical scrub tech reach out regarding future surgical date - Surgery will be performed under regional anesthesia -Return to clinic for surgical intervention -Call the orthopedic office any questions or concerns Michael Ward MD Orthopedic Surgery Resident Physician Pager: [phone] 11/04/22 12:35 PM By using the attestations below, the signing clinician agrees that I have read and verify that the documentation has been personally reviewed by me and ensure that the documentation accurately reflects the encounter. GC: I personally saw this patient on the day of the encounter, performed the timmons portion(s) of the service and participated in the management and confirm the resident's documentation. Please note there may be an additional personal documentation from me. Normal [facility] Office Visiton 11-04-2022 Follow-up visit [id number] Yamila Lozada 1980 F Date Provider Department Center 11/04/2022 373-ROBSON PAZ MP ORTHO MPORTHO Family History Problem Relation Age of Onset Diabetes Mother Leukemia Father Family Status - Relation Status Age at Mother Father Level of Service:385[address] [place] OFFICE/OUTPATIENT ESTABLISHED LOW MDM 20-29 MIN Reason for Visit and Comments: Pain [136] Normal [facility] FSHon 09-15-2022 FSH 39.6 mIU/mL Normal [facility] Comment on above: Result Comment: Adul t Female: Follicular phase 3.5 - 12.5 Ovulation phase 4.7 - 21.5 Luteal phase 1.7 - 7.7 Postmenopausal 25.8 - 134.8 Performed By: #### L BCFSH #### [facility] [address] [address] [address] Dipika Rapp LUTEINIZING HORMONE (LH)on 0 09-15-2022 LH 32.9 mIU/mL Normal [facility] Comment on above: Result Comment: Adul t Female: Follicular phase 2.4 - 12.6 Ovulation phase 14.0 - 95.6 Luteal phase 1.0 - 11.4 Postmenopausal 7.7 - 58.5 Performed By: #### L BCLH #### [facility] [address] [place], [place] [address] Dr. Dipika Rapp PROLACTINon 09-15-2022 Prolactin 4.6 ng/mL Critically low 4.8-23.3 [facility] Comment on above: Performed By: #### P ROLAC ####[facility] [address] [place], [place] [address]KuDr. Dipika Rapp CBC AUTO DIFFon 09-14-2022 BASO # 0.0 103/ul Normal 0.0-0.1 [facility] Comment on above: Performed By: #### C BC ####[facility] [address] [address]Dr. Dipika Rapp Basophils/100 WBC (Bld) 0.4 % Normal 0.2-2.0 [facility] Comment on above: Performed By: #### C BC ####[facility] [address] [place], [place] [address]Dr. Dipika Rapp EO # 0.1 103/ul Normal 0.0-0.7 [facility] Comment on above: Performed By: #### C BC ####[facility] [address] [place], [place] [address]Dr. Dipika Rapp Eosinophils/100 WBC (Bld) 0.8 % Critically low 0.9-7.0 [facility] Comment on above: Performed By: #### C BC ####[facility] [address] [place], [place] [address]Dr. Dipika Rapp Erythrocyte distribution width (RBC) [Ratio] 12.5 % Normal 11.0-15.0 [facility] Comment on above: Performed By: #### C BC ####[facility] [address] [place], [place] [address]Dr. Dipika Rapp Hematocrit (Bld) [Volume fraction] 46.2 % Normal 36.0-48.0 [facility] Comment on above: Performed By: #### C BC ####[facility] [address] [place], [place] [address]Dr. Dipika Rapp Hemoglobin (Bld) [Mass/Vol] 14.9 g/dL Normal 12.0-16.0 [facility] Comment on above: Performed By: #### C BC ####[facility] [address] [place], [place] [address]Dr. Dipika Rapp IG # 0.04 10e3/ul Critically high 0.00-0.03 [facility] Comment on above: Performed By: #### C BC ####[facility] [address] [place], [place] [address]Dr. Dipika Rapp IG % 0.5 % Normal 0.0-0.5 [facility] Comment on above: Performed By: #### C BC ####[facility] [address] [address]Dr. Dipika Rapp LYMPH # 2.8 103/ul Normal 1.2-3.8 [facility] Comment on above: Performed By: #### C BC ####[facility] [address] [address]Dr. Vanessazackary Rapp Lymphocytes/100 WBC (Bld) 34.7 % Normal 20.5-60.0 [facility] Comment on above: Performed By: #### C BC ####[facility] [address] [address]Dr. Vanessazackary Rapp MANUAL DIFF REQ NO Normal [facility] Comment on above: Performed By: #### C BC ####[facility] [address] [address]Dr. Dipika Dionte MCH (RBC) [Entitic mass] 28.3 pg Normal 26.7-34.0 [facility] Comment on above: Performed By: #### C BC ####[facility] [address] [address]Dr. Dipika Dionte MCHC (RBC) [Mass/Vol] 32.3 g/dL Normal 29.9-35.2 [facility] Comment on above: Performed By: #### C BC ####[facility] [address] [address]Dr. Vanessazackary Rapp MCV (RBC) [Entitic vol] 87.7 fL Normal 81.0-99.0 [facility] Comment on above: Performed By: #### C BC ####[facility] [address] [address]DrBrian Rapp MONO # 0.4 103/ul Normal 0.3-0.8 [facility] Comment on above: Performed By: #### C BC ####[facility] [address] [address]DrBrian Rapp Monocytes/100 WBC (Bld) 5.0 % Normal 1.7-12.0 [facility] Comment on above: Performed By: #### C BC ####[facility] [address] [id number] Dipika Rapp NEUT # 4.7 103/ul Normal 1.4-6.5 [facility] Comment on above: Performed By: #### C BC ####[facility] [address] [address]DrBrian Dipika Dionte Neutrophils/100 WBC (Bld) 58.6 % Normal 43.0-75.0 [facility] Comment on above: Performed By: #### C BC ####[facility] [address] [id number]. Dipika Rapp Platelet mean volume (Bld) [Entitic vol] 9.1 fL Critically low 9.5-13.5 [facility] Comment on above: Performed By: #### C BC ####[facility] [address] [id number] Rapp PLT 194 103/ul Normal 150-450 [facility] Comment on above: Performed By: #### C BC ####[facility] [address] [id number]. Dipika Rapp RBC 5.27 106/ul Normal 4.20-5.40 [facility] Comment on above: Performed By: #### C BC ####[facility] [address] [id number] Rapp WBC 8.0 103/ul Normal 4.0-11.0 [facility] Comment on above: Performed By: #### C BC ####[facility] [address] [id number]. Dipika Rapp FREE T4on 09-14-2022 Free T4 [Mass/Vol] 1.04 ng/dL Normal 0.76-1.46 [facility] Comment on above: Performed By: #### F T4 #### [facility] [address] [id number] Dipika Rapp TSHon 09-14-2022 TSH 1.420 uIU/mL Normal 0.358-3.740 [facility] Comment on above: Performed By: #### T SH #### [facility] [address] [address] [address] Dipika Rapp PAP ACOG PANEL 2: 30 to 65on 07-25-2022 . . Normal [facility] Comment on above: Result Comment: Perf ormed at: WB Performed By: #### 4 [id number] #### [facility] [address] [address] [address] Dipika Rapp Age Gdln ACOG Testing 30-65 [facility] Comment on above: Performed By: #### 4 [id number] #### [facility] [address] [place] [address] Dr. Dipika Rapp DIAGNOSIS: Comment Normal [facility] Comment on above: Result Comment: NEGA TIVE FOR INTRAEPITHELIAL LESION OR MALIGNANCY. THIS SPECIMEN WAS RESCREENED PART OF OUR SOIL CONSERVATIONIST PROGRAM. Performed at: WB Performed By: #### 4 [id number] #### [facility] [address] [place] [address] Dr. Dipika Rapp HPV Aptima Negative Normal Negative [facility] Comment on above: Result Comment: This nucleic acid amplification test detects fourteen high-risk HPV types (16,18,31,33,35,39,45,51,52,56,58,59,66,68) without differentiation. Performed at: =G Performed By: #### 4 [id number] #### [facility] [address] [place] [address] Dr. Dipika Rapp HPV Genotype Reflex Comment Normal [facility] Comment on above: Result Comment: Crit eria not met, HPV Genotype not performed. Performed at: WB Performed By: #### 4 [id number] #### [facility] [address] [place] [address] Dr. Dipika Rapp Methodology: Comment Normal [facility] Comment on above: Result Comment: This liquid based ThinPrep(R) pap test was screened with the use of an image guided system. Performed at: WB Performed By: #### 4 [id number] #### [facility] [address] [place] [address] Dr. Dipika Rapp Note: Comment Normal [facility] Comment on above: Result Comment: The Pap smear is a screening test designed to aid in the detection of premalignant and malignant conditions of the uterine cervix. It is not a diagnostic procedure and should not be used as the sole means of detecting cervical cancer. Both false-positive and false-negative reports do occur. . Performed at: WB Performed By: #### 4 [id number] #### [facility] [address] [place] [address] Dr. Dipika Rapp Performed by: Comment Normal [facility] Comment on above: Result Comment: Luna Zelaya, Remote Recruiter (ASCP) Performed at: WB Performed By: #### 4 [id number] #### [facility] [address] [place] [address] Dr. Dipika Rapp QC reviewed by: Comment Normal [facility] Comment on above: Result Comment: Светлана Burger, Supervisory Remote Recruiter (ASCP) Performed at: WB Performed By: #### 4 [id number] #### [facility] [address] [place] [address] Dr. Dipika Rapp Specimen adequacy: Comment Normal [facility] Comment on above: Result Comment: Sati sfactory for evaluation. Endocervical and/or squamous metaplastic cells (endocervical component) are present. Performed at: WB Performed By: #### 4 [id number] #### [facility] [address] [place] [address] Dr. Dipika Rapp MG MAMM SCREEN 3D DINAH CADon 06-22-2022 MG MAMM SCREEN 3D DINAH CAD Patient: YAMILA LOZADA Exam Date: 06/22/2022 : 1980 Gender:F Ordering : DR ERIK BURR . Admission #: [id number] Family : Order #: [id number] CLICK HERE TO VIEW EXAM RADIOLOGY REPORT PROCEDURE: MAMMOGRAM SCREENING 3D BILATERAL CAD COMPARISON: MG MAMM SCREEN 3D DINAH CAD, 06/21/2021. MG MAMM SCREEN DINAH W CAD, 06/19/2020. INDICATIONS: Screening mammography Calculator Name NCI Breast Cancer Risk Assessment Tool 5 Year Breast Cancer Risk 0.70% Lifetime Breast Cancer Risk 10.00% Personal Breast Cancer No Personal Ovarian Cancer No Treatments None Family Cancers None LOCATION: [facility] BREAST COMPOSITION: Scattered areas fibroglandular density. FINDINGS: DIAGNOSTIC CATEGORY 1--NEGATIVE. RIGHT BREAST: No significant suspicious finding. No significant change has occurred. LEFT BREAST: No significant suspicious finding. No significant change has occurred. RECOMMENDATIONS: ROUTINE MAMMOGRAM AND CLINICAL EVALUATION IN 12 MONTHS. PLEASE NOTE: A NORMAL MAMMOGRAM DOES NOT EXCLUDE THE POSSIBILITY OF BREAST CANCER. A CLINICALLY SUSPICIOUS PALPABLE LUMP SHOULD BE BIOPSIED. Dictated by: Harvinder Deleon M.D. on 06/22/2022 at 15:50 Approved by: Harvinder Deleon M.D. on 06/22/2022 at 15:52 Normal [facility] GLYCOHEMOGLOBIN A1Con 2021 ADA RECOMMENDATION SEE BELOW Normal [facility] Comment on above: Result Comment: ADA RECOMMENDED LIMIT 4.0 - 6.0 ADA THERAPEUTIC TARGET < 7.0 ACTION SUGGESTED > 7.0 Performed By: #### A 1C #### [facility] [address] [address] [address] Dipika Rapp Glucose [Mass/Vol] 163 mg/dL Normal [facility] Comment on above: Performed By: #### A 1C #### [facility] [address] [address] [address] Dipika Rapp HbA1c (Bld) [Mass fraction] 7.3 % Critically high 4.5-6.2 [facility] Comment on above: Performed By: #### A 1C #### [facility] [address] [address] [address] Dipika Rapp CBC AUTO DIFFon 01-23-2022 BASO # 0.0 103/ul Normal 0.0-0.1 [facility] Comment on above: Performed By: #### C BC ####[facility] [address] [place], [place] [address]QmDr. Dipika Rapp Basophils/100 WBC (Bld) 0.3 % Normal 0.2-2.0 [facility] Comment on above: Performed By: #### C BC ####[facility] [address] [id number]. Dipika Rapp EO # 0.2 103/ul Normal 0.0-0.7 [facility] Comment on above: Performed By: #### C BC ####[facility] [address] [place], [place] [address]Dr. Dipika Rapp Eosinophils/100 WBC (Bld) 1.7 % Normal 0.9-7.0 [facility] Comment on above: Performed By: #### C BC ####[facility] [address] [place], [place] [address]Dr. Dipika Rapp Erythrocyte distribution width (RBC) [Ratio] 12.0 % Normal 11.0-15.0 [facility] Comment on above: Performed By: #### C BC ####[facility] [address] [place], [place] [address]Dr. Dipika Rapp Hematocrit (Bld) [Volume fraction] 43.0 % Normal 36.0-48.0 [facility] Comment on above: Performed By: #### C BC ####[facility] [address] [place], [place] [address]Dr. Dipika Rapp Hemoglobin (Bld) [Mass/Vol] 13.6 g/dL Normal 12.0-16.0 [facility] Comment on above: Performed By: #### C BC ####[facility] [address] [place], [place] [address]Dr. Dipika Rapp IG # 0.02 10e3/ul Normal 0.00-0.03 [facility] Comment on above: Performed By: #### C BC ####[facility] [address] [place], [place] [address]Dr. Dipika Rapp IG % 0.2 % Normal 0.0-0.5 [facility] Comment on above: Performed By: #### C BC ####[facility] [address] [place], [place] [address]Dr. Dipika Rapp LYMPH # 3.5 103/ul Normal 1.2-3.8 [facility] Comment on above: Performed By: #### C BC ####[facility] [address] [id number]. Dipika Rapp Lymphocytes/100 WBC (Bld) 39.2 % Normal 20.5-60.0 [facility] Comment on above: Performed By: #### C BC ####[facility] [address] [id number]. Dipika Rapp MANUAL DIFF REQ NO Normal [facility] Comment on above: Performed By: #### C BC ####[facility] [address] [id number]. Dipika Dionte MCH (RBC) [Entitic mass] 28.6 pg Normal 26.7-34.0 [facility] Comment on above: Performed By: #### C BC ####[facility] [address] [place], [place] [address]Dr. Dipika Dionte MCHC (RBC) [Mass/Vol] 31.6 g/dL Normal 29.9-35.2 [facility] Comment on above: Performed By: #### C BC ####[facility] [address] [place], [place] [address]Dr. Dipika Dionte MCV (RBC) [Entitic vol] 90.3 fL Normal 81.0-99.0 [facility] Comment on above: Performed By: #### C BC ####[facility] [address] [place], [place] [address]Dr. Vanessazackary Dionte MONO # 0.5 103/ul Normal 0.3-0.8 [facility] Comment on above: Performed By: #### C BC ####[facility] [address] [place], [place] [address]Dr. Vanessazackary Rapp Monocytes/100 WBC (Bld) 5.8 % Normal 1.7-12.0 [facility] Comment on above: Performed By: #### C BC ####[facility] [address] [place], [place] [address]Dr. Dipika Rapp NEUT # 4.7 103/ul Normal 1.4-6.5 [facility] Comment on above: Performed By: #### C BC ####[facility] [address] [id number]. Dipika Rapp Neutrophils/100 WBC (Bld) 52.8 % Normal 43.0-75.0 [facility] Comment on above: Performed By: #### C BC ####[facility] [address] [id number]. Dipika Rapp Platelet mean volume (Bld) [Entitic vol] 9.3 fL Critically low 9.5-13.5 [facility] Comment on above: Performed By: #### C BC ####[facility] [address] [id number]. Dipika Rapp PLT 219 103/ul Normal 150-450 [facility] Comment on above: Performed By: #### C BC ####[facility] [address] [id number]. Dipika Rapp RBC 4.76 106/ul Normal 4.20-5.40 [facility] Comment on above: Performed By: #### C BC ####[facility] [address] [id number]. Dipika Rapp WBC 8.8 103/ul Normal 4.0-11.0 [facility] Comment on above: Performed By: #### C BC ####[facility] [address] [id number] Rapp POINT OF CARE GLUCOSEon 01-03 Glucose [Mass/Vol] 51 mg/dL Critically low 74-106 [facility] Comment on above: Performed By: #### P OCGLUC #### [facility] [address] [address] [address] Dipika Rapp PROF 14(COMP METB)on 022 Albumin [Mass/Vol] 3.1 g/dL Critically low 3.4-5.0 [facility] Comment on above: Performed By: #### C MP #### [facility] [address] [address] [address] Dipika Rapp Albumin/Globulin [Mass ratio] 0.8 {ratio} Normal [facility] Comment on above: Performed By: #### C MP #### [facility] [address] [address] [address] Dipika Rapp ALP [Catalytic activity/Vol] 86 U/L Normal 46-116 [facility] Comment on above: Performed By: #### C MP #### [facility] [address] [address] [address] Dipika Rapp ALT [Catalytic activity/Vol] 39 U/L Normal 14-59 [facility] Comment on above: Performed By: #### C MP #### [facility] [address] [address] [address] Dipika Rapp Anion gap [Moles/Vol] 10.8 mmol/L Normal [facility] Comment on above: Performed By: #### C MP #### [facility] [address] [place] [address] Dr. Dipika Rapp AST [Catalytic activity/Vol] 11 U/L Critically low 15-37 [facility] Comment on above: Performed By: #### C MP #### [facility] [address] [address] [address] Dipika Rapp Bilirubin [Mass/Vol] 0.1 mg/dL Critically low 0.2-1.0 [facility] Comment on above: Performed By: #### C MP #### [facility] [address] [place] [address] Dr. Dipika Rapp Calcium [Mass/Vol] 9.0 mg/dL Normal 8.5-10.1 [facility] Comment on above: Performed By: #### C MP #### [facility] [address] [address] [address] Dipika Rapp Chloride [Moles/Vol] 104 mmol/L Normal 98-107 [facility] Comment on above: Performed By: #### C MP #### [facility] [address] [address] [address] Dipika Rapp CO2 [Moles/Vol] 29.4 mmol/L Normal 21.0-32.0 [facility] Comment on above: Performed By: #### C MP #### [facility] [address] [address] [address] Dipika Rapp Creatinine [Mass/Vol] 0.67 mg/dL Normal 0.55-1.02 [facility] Comment on above: Performed By: #### C MP #### [facility] [address] [address] [address] Dipika Rapp EGFR-AF BELARUSIAN >60 Normal >=60 [facility] Comment on above: Performed By: #### C MP #### [facility] [address] [address] [address] Dipika Rapp EGFR-NON AF BELARUSIAN >60 Normal >=60 [facility] Comment on above: Performed By: #### C MP #### [facility] [address] [place] [address] Dr. Dipika Rapp Globulin (S) [Mass/Vol] 3.9 g/dL Normal [facility] Comment on above: Performed By: #### C MP #### [facility] [address] [place] [address] Dr. Dipika Rapp Glucose [Mass/Vol] 142 mg/dL Critically high 74-106 [facility] Comment on above: Performed By: #### C MP #### [facility] [address] [address] [address] Dipika Rapp Potassium [Moles/Vol] 4.2 mmol/L Normal 3.5-5.1 [facility] Comment on above: Performed By: #### C MP #### [facility] [address] [address] [address] Dipika Rapp Protein [Mass/Vol] 7.0 g/dL Normal 6.4-8.2 [facility] Comment on above: Performed By: #### C MP #### [facility] [address] [place] [address] Dr. Dipika Rapp Sodium [Moles/Vol] 140 mmol/L Normal 136-145 [facility] Comment on above: Performed By: #### C MP #### [facility] [address] [place] [address] Dr. Dipika Rapp Urea nitrogen [Mass/Vol] 22.0 mg/dL Critically high 7.0-18.0 [facility] Comment on above: Performed By: #### C MP #### [facility] [address] [place], [place] [address] Dr. Dipika Rapp Urea nitrogen/Creatinine [Mass ratio] 32.8 mg/mg Normal [facility] Comment on above: Performed By: #### C MP #### [facility] [address] [place], [place] [address] Dr. Dipika Rapp Cult,Aerobe/Anaerobeon 10-06 Cult,Aerobe/Anaerob e Specimen Description .ULCER RT ARM Special Requests NOT REPORTED Direct Exam FEW NEUTROPHILS NO BACTERIA SEEN Culture NO GROWTH 5 DAYS Report Status FINAL 10/06/2021 Normal [facility] Comment on above: Performed By: #### U A, UMICAO #### [employer] [address] [place] [address] Social Services Coordinator: Brandan Ugalde MD Smear to Pathologiston 10-04 Smear to Pathologist SEE REPORT Normal [facility] Comment on above: Result Comment: REVIEWING PATHOLOGIST: ELECTRONICALLY SIGNED. HORACIO VILA M.D. Performed By: #### P TT, FIB, PT, LYTE, DBILI, TBIL, RETCT, CBC, LD, HAPT, PATH ####[employer] [id number] [place], [place] [id number] Lab Director: Brandan Ugalde MD Basic Metabolic Panelon 09-06 Anion gap [Moles/Vol] 14 mmol/L 9 - 17 mmol/L [employer] Calcium [Mass/Vol] 8.3 mg/dL Low 8.6 - 10.4 mg/dL [employer] Chloride [Moles/Vol] 111 mmol/L High 98 - 107 mmol/L [employer] CO2 [Moles/Vol] 19 mmol/L Low 20 - 31 mmol/L [employer] Creatinine [Mass/Vol] 1.31 mg/dL High 0.50 - 0.90 mg/dL [employer] GFR 54 mL/min Low >60 [employer] GFR Non- 45 mL/min Low >60 [facility] [employer] GFR/1.73 sq M.predicted MDRD (S/P/Bld) [Vol rate/Area] [facility] [employer] Comment on above: Average GFR for 40-4 9 years old: 99 mL/min/1.73sq m Chronic Kidney Disease: <60 mL/min/1.73sq m Kidney failure: <15 mL/min/1.73sq m eGFR calculated using average adult body mass. Additional eGFR calculator available at: http://www.[employer]/multiple_crcl_2012.htm GFR/1.73 sq M.predicted MDRD (S/P/Bld) [Vol rate/Area] NOT REPORTED [facility] [employer] Glucose [Mass/Vol] 105 mg/dL High 70 - 99 mg/dL [facility] Interpretation and review of laboratory results Abnormal [facility] [employer] Potassium [Moles/Vol] 3.7 mmol/L 3.7 - 5.3 mmol/L [facility] [employer] Sodium [Moles/Vol] 144 mmol/L 135 - 144 mmol/L [facility] [employer] Urea nitrogen (BldV) [Mass/Vol] 19 mg/dL 6 - 20 mg/dL [facility] [employer] Urea nitrogen/Creatinine (Bld) [Mass ratio] NOT REPORTED [facility] Basic Metabolic Profon 10-03 (cont.) Normal [facility] Comment on above: Result Comment: Aver age GFR for 40-49 years old: 99 mL/min/1.73sq m Chronic Kidney Disease: <60 mL/min/1.73sq m Kidney failure: <15 mL/min/1.73sq m eGFR calculated using average adult body mass. Additional eGFR calculator available at: http://www.[employer]/Haiku Deck_crcl_2011.htm Performed By: #### PRATIBHA Claudio #### [employer] [address] [place] [address] Social Services Coordinator: Brandan Ugalde MD Anion gap [Moles/Vol] 14 mmol/L Normal - [facility] Comment on above: Performed By: #### PRATIBHA Claudio #### [employer] [address] [place] [address] Social Services Coordinator: Brandan Ugalde MD Calcium [Mass/Vol] 8.3 mg/dL Low 8.6-10.4 [facility] Comment on above: Performed By: #### U A, UMICAO #### [facility] [address] [place] [address] Social Services Coordinator: Brandan Uaglde MD Chloride [Moles/Vol] 111 mmol/L High 98-107 [facility] Comment on above: Performed By: #### U A UMICAO #### [facility] [address] [place] [address] Social Services Coordinator: Brandan Ugalde MD CO2 [Moles/Vol] 19 mmol/L Low 20-31 [facility] Comment on above: Performed By: #### U A UMICAO #### [facility] [address] [place] [address] Social Services Coordinator: Brandan Ugalde MD Creatinine [Mass/Vol] 1.31 mg/dL High 0.50-0.90 [facility] Comment on above: Performed By: #### U A UMICAO #### [facility] [address] [place] [address] Social Services Coordinator: Brandan Ugalde MD GFR, Amer 54 mL/min Low >60 [facility] Comment on above: Performed By: #### U A UMICAO #### [facility] [address] [place] [address] Social Services Coordinator: Brandan Ugalde MD GFR,non Amer 45 mL/min Low >60 [facility] Comment on above: Performed By: #### U A, UMICAO #### [facility] [address] [place] [address] Social Services Coordinator: Brandan Ugalde MD Glucose [Mass/Vol] 105 mg/dL High 70-99 [facility] Comment on above: Performed By: #### U ACOLLEENICAO #### [facility] [address] [place] [address] Social Services Coordinator: Brandan Ugalde MD Potassium [Moles/Vol] 3.7 mmol/L Normal 3.7-5.3 [facility] Comment on above: Performed By: #### U ACOLLEENICAO #### [facility] [address] [place] [address] Social Services Coordinator: Brandan Ugalde MD Sodium [Moles/Vol] 144 mmol/L Normal 135-144 [facility] Comment on above: Performed By: #### U AFRANKO #### [facility] [employer] [address] [place] [address] Social Services Coordinator: Brandan Ugalde MD Urea nitrogen [Mass/Vol] 19 mg/dL Normal - [facility] Comment on above: Performed By: #### U APRATIBHA #### [facility] [employer] [address] [place] [address] Social Services Coordinator: Brandan Ugalde MD BUN/CRE Ratio NOT REPORTED Normal - [facility] Comment on above: Performed By: #### U ACOLLEENICAO #### [facility] [employer] [address] [place] [address] Social Services Coordinator: Brandan Ugalde MD Staging: NOT REPORTED Normal [facility] Comment on above: Performed By: #### U AFRANKO #### [facility] [address] [place] [address] Social Services Coordinator: Brandan Ugalde MD CBC auto differentialon 09-06 Absolute Eos # 0.22 [facility] Absolute Immature Granulocyte 0.00 [facility] [employer] Absolute Lymph # 2.04 [facility] Absolute Fountain # 0.72 [facility] lt Basophils (Bld) [#/Vol] 0.00 10*3/uL [facility] Basophils/100 WBC (Bld) 0 % 0 - 2 % [facility] [employer] Differential Type NOT REPORTED [facility] Eosinophils/100 WBC (Bld) 4 % 1 - 4 % [facility] Hematocrit (Bld) [Volume fraction] 34.4 % Low 36.3 - 47.1 % [facility] Hemoglobin.gastroin testinal spec 1 Ql (Stl) 11.5 g/dL Low 11.9 - 15.1 g/dL [facility] Immature granulocytes/100 WBC (Bld) 0 % 0 [facility] Interpretation and review of laboratory results Abnormal [facility] Lymphocytes/100 WBC (Bld) 37 % 24 - 44 % [facility] MCH (RBC) [Entitic mass] 28.6 pg 25.2 - 33.5 pg [facility] MCHC (RBC) [Mass/Vol] 33.4 g/dL 28.4 - 34.8 g/dL [facility] MCV (RBC) [Entitic vol] 85.6 fL 82.6 - 102.9 fL [facility] Monocytes/100 WBC (Bld) 13 % High 1 - 7 % [facility] [employer] Morphology Dontrell (Bld) [Interp] Normal [facility] NRBC Automated 0.0 0.0 per 100 WBC [facility] Platelet distribution width (Bld) [Ratio] 13.5 % 11.8 - 14.4 % [facility] Platelet Estimate NOT REPORTED [facility] Platelet mean volume (Bld) [Entitic vol] NOT REPORTED 8.1 - 13.5 fL [facility] Platelets (Bld) [#/Vol] See Reflexed IPF Result [facility] RBC (Bld) [#/Vol] 4.02 10*6/uL 3.95 - 5.11 m/uL [facility] RBC (Bld) [#/Vol] NOT REPORTED [facility] Segmented neutrophils/100 WBC (Bld) 46 % 36 - 66 % [facility]s [facility] [#/Vol] 5.5 10*3/uL [facility] WBC (Bld) [#/Vol] NOT REPORTED [facility] CBC with Diffon 10-03-2021 Abs. Basophil 0.00 k/uL Normal 0.0-0.2 [facility] Comment on above: Performed By: #### U A, UMICAO #### [facility] [address] [place] [address] Social Services Coordinator: Brandan Ugalde MD Abs.Imm.Granulocyte 0.00 k/uL Normal 0.00-0.30 [facility] Comment on above: Performed By: #### U A, UMICAO #### [address] [address] Social Services Coordinator: Brandan Ugalde MD Abs.Neutrophil (Seg) 2.52 k/uL Normal 1.8-7.7 [facility] Comment on above: Performed By: #### U A UMICAO #### [address] [address] Social Services Coordinator: Brandan Ugalde MD Basophils/100 WBC (Bld) 0 % Normal 0-2 [facility] Comment on above: Performed By: #### U A UMICAO #### [address] [address] Social Services Coordinator: Brandan Ugalde MD Eosinophils (Bld) [#/Vol] 0.22 10*3/uL Normal 0.0-0.4 [facility] Comment on above: Performed By: #### U A UMICAO #### [address] [address] Social Services Coordinator: Brandan Ugalde MD Eosinophils/100 WBC (Bld) 4 % Normal 1-4 [facility] Comment on above: Performed By: #### U A, UMICAO #### [address] [address] Social Services Coordinator: Brandan Ugalde MD Immature granulocytes/100 WBC (Bld) 0 % Normal 0 [facility] Comment on above: Performed By: #### U A, UMICAO #### [facility] [employer] [address] [place] [address] Social Services Coordinator: Brandan Ugalde MD Lymphocytes (Bld) [#/Vol] 2.04 10*3/uL Normal 1.0-4.8 [facility] Comment on above: Performed By: #### U A, UMICAO #### [address] [address] Social Services Coordinator: Brandan Ugalde MD Lymphocytes/100 WBC (Bld) 37 % Normal 24-44 [facility] Comment on above: Performed By: #### U A, UMICAO #### [address] [address] Social Services Coordinator: Brandan Ugalde MD Monocytes (Bld) [#/Vol] 0.72 10*3/uL Normal 0.1-0.8 [facility] Comment on above: Performed By: #### U A, UMICAO #### [address] [address] Social Services Coordinator: Brandan Ugalde MD Monocytes/100 WBC (Bld) 13 % High 1-7 [facility] Comment on above: Performed By: #### U A, UMICAO #### [address] [address] Social Services Coordinator: Brandan Ugalde MD Morphology Dontrell (Bld) [Interp] Normal Normal [facility] Comment on above: Performed By: #### U A, UMICAO #### [address] [address] Social Services Coordinator: Brandan Ugalde MD Neutrophil (Seg) 46 % Normal 36-66 [facility] Comment on above: Performed By: #### U A, UMICAO #### [address] [address] Social Services Coordinator: Brandan Ugalde MD Erythrocyte distribution width (RBC) [Ratio] 13.5 % Normal 11.8-14.4 [facility] Comment on above: Performed By: #### U A, UMICAO #### [address] [address] Social Services Coordinator: Brandan Ugalde MD Hematocrit (Bld) [Volume fraction] 34.4 % Low 36.3-47.1 [facility] Comment on above: Performed By: #### U A, UMICAO #### [address] [address] Social Services Coordinator: Brandan Ugalde MD Hemoglobin (Bld) [Mass/Vol] 11.5 g/dL Low 11.9-15.1 [facility] Comment on above: Performed By: #### U A, UMICAO #### [address] [address] Social Services Coordinator: Brandan Ugalde MD MCH (RBC) [Entitic mass] 28.6 pg Normal 25.2-33.5 [facility] Comment on above: Performed By: #### U AFRANKO #### [address] [address] Social Services Coordinator: Brandan Ugalde MD MCHC (RBC) [Mass/Vol] 33.4 g/dL Normal 28.4-34.8 [facility] Comment on above: Performed By: #### U A, UMICAO #### [address] [address] Social Services Coordinator: Brandan Ugalde MD MCV (RBC) [Entitic vol] 85.6 fL Normal 82.6-102.9 [facility] Comment on above: Performed By: #### U A, UMICAO #### [address] [address] Social Services Coordinator: Brandan Ugalde MD NRBC Automated 0.0 per 100 WBC Normal 0.0 [facility] Comment on above: Performed By: #### U A, UMICAO #### [facility] [place] [address] Social Services Coordinator: Brandan Ugalde MD Platelet Count See Reflexed IPF Result Normal 138-453 [facility] Comment on above: Performed By: #### U A, UMICAO #### [facility] [address] [place] [address] Social Services Coordinator: Brandan Ugalde MD RBC (Bld) [#/Vol] 4.02 10*6/uL Normal 3.95-5.11 [facility] Comment on above: Performed By: #### U A, UMICAO #### [address] [address] Social Services Coordinator: Brandan Ugalde MD WBC (Bld) [#/Vol] 5.5 10*3/uL Normal 3.5-11.3 [facility] Comment on above: Performed By: #### U A, UMICAO #### [address] [address] Social Services Coordinator: Brandan Ugalde MD Auto Diff Performed NOT REPORTED Normal [facility] Comment on above: Performed By: #### U A, UMICAO #### [address] [address] Social Services Coordinator: Brandan Ugalde MD MPV NOT REPORTED Normal 8.1-13.5 [facility] Comment on above: Performed By: #### U A, UMICAO #### [address] [address] Social Services Coordinator: Brandan Ugalde MD Platelet Comment NOT REPORTED Normal [facility] Comment on above: Performed By: #### U A, UMICAO #### [facility] [employer] [address] [place] [address] Social Services Coordinator: Brandan Ugalde MD RBC morphology finding Nom (Bld) NOT REPORTED Normal [facility] Comment on above: Performed By: #### U A, UMICAO #### [employer] [facility] [place], [place] [id number] Social Services Coordinator: Brandan Ugalde MD WBC Morphology NOT REPORTED Normal [facility] Comment on above: Performed By: #### U A, COLLEENICAO #### [employer] [facility] [place], [place] [phone] Social Services Coordinator: Brandan Ugalde MD Cult, Bloodon 10-03-2021 Cult, Blood Specimen Description .BLOOD Special Requests L HAND 2ML Culture NO GROWTH 5 DAYS Report Status FINAL 10/03/2021 Normal [facility] Comment on above: Performed By: #### U A, FRANKO #### [employer] [address] [place] [phone] Social Services Coordinator: Brandan Ugalde MD Cult,Bloodon 10-03-2021 Cult,Blood Specimen Description .BLOOD Special Requests NOT REPORTED Culture NO GROWTH 5 DAYS Report Status FINAL 10/03/2021 Normal [facility] Comment on above: Performed By: #### U A, UMJOSEO #### [facility] [address] [place] [id number] Social Services Coordinator: Brandan Ugalde MD Culture, Blood 1on 2 Bacteria identified Cx Nom (Unsp spec) NO GROWTH [address] [facility] Special Requests NOT REPORTED [facility] Specimen Description .BLOOD [facility] Culture, Blood 2on 2 Bacteria identified Cx Nom (Unsp spec) NO GROWTH 5 DAYS [facility] [employer] Special Requests L HAND 2ML [facility] Specimen Description .BLOOD [facility] Immature Platelet Fractionon 10-03-2021 Platelet, Fluorescence Platelet clumps present, count appears adequate. [facility] Comment on above: ORDERED BY LAB Platelet, Immature Fraction NOT REPORTED 1.1 - 10.3 % [facility] PLT, Immature Fract.on 10-03 Platelet, Fluoresc. Platelet clumps present, count appears adequate. Normal 138-453 [facility] Comment on above: Result Comment: ORDE RED BY LAB Performed By: #### U PRATIBHA Phipps #### [facility] [address] [place] [address] Social Services Coordinator: Brandan Ugalde MD PLT, Immature Fract. NOT REPORTED Normal 1.1-10.3 [facility] Comment on above: Performed By: #### U Desire, PRATIBHA #### [facility] [address] [place] [address] Social Services Coordinator: Brandan Ugalde MD POC Glucose Fingerstickon Glucose [Mass/Vol] 236 mg/dL High 65 - 105 mg/dL [facility] Interpretation and review of laboratory results Abnormal [facility] Glucose [Mass/Vol] 89 mg/dL 65 - 105 mg/dL [facility] Phosphoruson 10-03-2021 Phosphate [Mass/Vol] 4.2 mg/dL 2.6 - 4.5 mg/dL [facility] Phosphorus, Inorg.on 022 Phosphorus, Inorg. 4.2 mg/dL Normal 2.6-4.5 [facility] Comment on above: Performed By: #### U PRATIBHA Phipsp #### [facility] [address] [place] [address] Social Services Coordinator: Brandan Ugalde MD C DIFF TOXIN/ANTIGENon 10-02 C DIFF AG + TOXIN Negative NEGATIVE [facility] Comment on above: No C. difficile anti gen and Toxin Detected. Specimen Description .FECES [facility] C diff Ag + Toxinon 10-02-19 C diff Ag + Toxin Negative Normal NEG [facility] Comment on above: Result Comment: No C . difficile antigen and Toxin Detected. Performed By: #### U PRATIBHA Phipps #### [facility] [employer] [address] [place], [place] [id number] Social Services Coordinator: Brandan Ugalde MD CBC auto differentialon 09-05 Absolute Eos # 0.11 [facility] th Absolute Immature Granulocyte 0.08 [facility] Absolute Lymph # 1.84 [employer] Absolute Fountain # 0.59 [facility] Basophils (Bld) [#/Vol] 0.03 10*3/uL [facility] Basophils/100 WBC (Bld) 1 % 0 - 2 % [facility] [employer] Differential Type NOT REPORTED [facility] [employer] Eosinophils/100 WBC (Bld) 2 % 1 - 4 % [facility] Hematocrit (Bld) [Volume fraction] 31.2 % Low 36.3 - 47.1 % [facility] Hemoglobin.gastroin testinal spec 1 Ql (Stl) 10.4 g/dL Low 11.9 - 15.1 g/dL [facility] [employer] Immature granulocytes/100 WBC (Bld) 2 % High [address] [facility] [facility] Interpretation and review of laboratory results Abnormal [facility] Lymphocytes/100 WBC (Bld) 35 % 24 - 43 % [facility] [employer] MCH (RBC) [Entitic mass] 28.7 pg 25.2 - 33.[address] [facility] MCHC (RBC) [Mass/Vol] 33.3 g/dL 28.4 - 34.8 g/dL [facility] MCV (RBC) [Entitic vol] 86.2 fL 82.6 - 102.[address] [facility] Monocytes/100 WBC (Bld) 11 % 3 - 12 % [facility] NRBC Automated 0.0 0.0 per [address] [facility] Platelet distribution width (Bld) [Ratio] 13.7 % 11.8 - 14.4 % [facility] Platelet Estimate NOT REPORTED [facility] Platelet mean volume (Bld) [Entitic vol] 9.0 fL 8.1 - 13.[address] [facility] Platelets (Bld) [#/Vol] 92 10*3/uL Low [facility] [employer] RBC (Bld) [#/Vol] 3.62 10*6/uL Low 3.95 - 5.11 m/uL [facility] RBC (Bld) [#/Vol] NOT REPORTED [facility] [employer] Segmented neutrophils/100 WBC (Bld) 49 % 36 - 65 % [facility] [employer] Segs [facility] 2.58 [facility] [#/Vol] 5.2 10*3/uL [facility] WBC (Bld) [#/Vol] NOT REPORTED [facility] CBC with Diffon 10-02-2021 Abs. Basophil 0.03 k/uL Normal 0.00-0.20 [facility] Comment on above: Performed By: #### U ACOLLEENICAO #### [address] [address] Social Services Coordinator: Brandan Ugalde MD Abs.Imm.Granulocyte 0.08 k/uL Normal 0.00-0.30 [facility] Comment on above: Performed By: #### U A UMICAO #### [address] [address] Social Services Coordinator: Brandan Ugalde MD Abs.Neutrophil (Seg) 2.58 k/uL Normal 1.50-8.10 [facility] Comment on above: Performed By: #### U ACOLLEENICAO #### [facility] [employer] [address] [place] [address] Social Services Coordinator: Brandan Ugalde MD Basophils/100 WBC (Bld) 1 % Normal 0-2 [facility] Comment on above: Performed By: #### U ACOLLEENICAO #### [facility] [employer] [address] [place] [address] Social Services Coordinator: Brandan Ugalde MD Eosinophils (Bld) [#/Vol] 0.11 10*3/uL Normal 0.00-0.44 [facility] Comment on above: Performed By: #### U A UMICAO #### [facility] [employer] [address] [place] [address] Social Services Coordinator: Brandan Ugalde MD Eosinophils/100 WBC (Bld) 2 % Normal 1-4 [facility] Comment on above: Performed By: #### U A UMICAO #### [facility] [employer] [address] [place] [address] Social Services Coordinator: Brandan Ugalde MD Immature granulocytes/100 WBC (Bld) 2 % High 0 [facility] Comment on above: Performed By: #### U PRATIBHA Phipps #### [address] [address] Social Services Coordinator: Brandan Ugalde MD Lymphocytes (Bld) [#/Vol] 1.84 10*3/uL Normal 1.10-3.70 [facility] Comment on above: Performed By: #### U APRATIBHA #### [address] [address] Social Services Coordinator: Brandan Ugalde MD Lymphocytes/100 WBC (Bld) 35 % Normal 24-43 [facility] Comment on above: Performed By: #### U PRATIBHA Phipps #### [address] [address] Social Services Coordinator: Brandan Ugalde MD Monocytes (Bld) [#/Vol] 0.59 10*3/uL Normal 0.10-1.20 [facility] Comment on above: Performed By: #### U PRATIBHA Phipps #### [address] [address] Social Services Coordinator: Brandan Ugalde MD Monocytes/100 WBC (Bld) 11 % Normal 3-12 [facility] Comment on above: Performed By: #### U APRATIBHA #### [address] [address] Social Services Coordinator: Brandan Ugalde MD Neutrophil (Seg) 49 % Normal 36-65 [facility] Comment on above: Performed By: #### U APRATIBHA #### [address] [address] Social Services Coordinator: Brandan Ugalde MD Erythrocyte distribution width (RBC) [Ratio] 13.7 % Normal 11.8-14.4 [facility] Comment on above: Performed By: #### U AFRANKO #### [address] [address] Social Services Coordinator: Brandan Ugalde MD Hematocrit (Bld) [Volume fraction] 31.2 % Low 36.3-47.1 [facility] Comment on above: Performed By: #### U APRATIBHA #### [address] [address] Social Services Coordinator: Brandan Ugalde MD Hemoglobin (Bld) [Mass/Vol] 10.4 g/dL Low 11.9-15.1 [facility] Comment on above: Performed By: #### U AFRANKO #### [address] [address] Social Services Coordinator: Brandan Ugalde MD MCH (RBC) [Entitic mass] 28.7 pg Normal 25.2-33.5 [facility] Comment on above: Performed By: #### U AFRANKO #### [address] [address] Social Services Coordinator: Brandan Ugalde MD MCHC (RBC) [Mass/Vol] 33.3 g/dL Normal 28.4-34.8 [facility] Comment on above: Performed By: #### U AFRANKO #### [address] [address] Social Services Coordinator: Brandan Ugalde MD MCV (RBC) [Entitic vol] 86.2 fL Normal 82.6-102.9 [facility] Comment on above: Performed By: #### U AFRANKO #### [facility] [employer] [address] [place] [address] Social Services Coordinator: Brandan Ugalde MD NRBC Automated 0.0 per 100 WBC Normal 0.0 [facility] Comment on above: Performed By: #### U ACOLLEENICAO #### [facility] [address] [place] [address] Social Services Coordinator: Brandan Ugalde MD Platelet mean volume (Bld) [Entitic vol] 9.0 fL Normal 8.1-13.5 [facility] Comment on above: Performed By: #### U A UMICAO #### [facility] [address] [place] [address] Social Services Coordinator: Brandan Ugalde MD Platelets (Bld) [#/Vol] 92 10*3/uL Low 138-453 [facility] Comment on above: Performed By: #### U AFRANKO #### [address] [address] Social Services Coordinator: Brandan Ugalde MD RBC (Bld) [#/Vol] 3.62 10*6/uL Low 3.95-5.11 [facility] Comment on above: Performed By: #### U ACOLLEENICAO #### [address] [address] Social Services Coordinator: Brandan Ugalde MD WBC (Bld) [#/Vol] 5.2 10*3/uL Normal 3.5-11.3 [facility] Comment on above: Performed By: #### U ACOLLEENICAO #### [address] [address] Social Services Coordinator: Brandan Ugalde MD Auto Diff Performed NOT REPORTED Normal [facility] Comment on above: Performed By: #### U A UMICAO #### [facility] [employer] [address] [place] [address] Social Services Coordinator: Brandan Ugalde MD Platelet Comment NOT REPORTED Normal [facility] Comment on above: Performed By: #### U A UMICAO #### [facility] [employer] [address] [place] [address] Social Services Coordinator: Brandan Ugalde MD RBC morphology finding Nom (Bld) NOT REPORTED Normal [facility] Comment on above: Performed By: #### U PRATIBHA Phipps #### [facility] [address] [place] [address] Social Services Coordinator: Brandan Ugalde MD WBC Morphology NOT REPORTED Normal [facility] Comment on above: Performed By: #### U PRATIBHA Phipps #### [facility] [address] [place] [address] Social Services Coordinator: Brandan Ugalde MD Gastrointestinal Panel, [facility] 10-02-2021 Campylobacter PCR NEGATIVE: No Campylobacter spp. (jejuni or coli) DNA Detected NEGATIVE: No Campylobacter spp. (jejuni or coli) DNA Detecte [facility] E Coli Enterotoxigenic PCR NEGATIVE: No Enterotoxigenic E. coli (ETEC) Heat-labile and heat-stable (LT/ST) DNA Detected NEGATIVE: No Enterotoxigenic E. coli (ETEC) Heat-labile and [facility] Plesiomonas Shigelloides PCR Negative NEGATIVE: No Plesionomas shigelloides DNA Detected [facility] Salmonella PCR Negative NEGATIVE: No Salmonella spp. DNA Detected [facility] Shigatoxin Gene PCR Negative NEGATIVE : No Shiga toxin-producing gene(s) Detected [facility] Shigella Sp PCR Negative NEGATIVE: No Shigella spp. / EIEC DNA Detected [facility] Specimen Description .FECES [facility] Vibrio PCR NEGATIVE: No Vibrio (V. vulnificus, V, parahaemolyticus and V. cholerae) DNA Detected NEGATIVE: No Vibrio (V. vulnificus, V, parahaemolyticus and [facility] Yersinia Enterocolitica PCR Negative NEGATIVE: No Yersinia enterocolitica DNA Detected [facility] Haptoglobinon 10-02-2021 Haptoglobin 346 mg/dL High 30-200 [facility] Comment on above: Performed By: #### P TT, FIB, PT, LYTE, DBILI, TBIL, RETCT, CBC, LD, HAPT, PATH ####[facility] [address] [place] [address] Lab Director: Brandan Ugalde MD Haptoglobin 346 mg/dL High 30 - 200 mg/dL [facility] Interpretation and review of laboratory results Abnormal [facility] POC Glucose Fingerstickon Glucose [Mass/Vol] 200 mg/dL High 65 - 105 mg/dL [facility] Interpretation and review of laboratory results Abnormal [facility] Glucose [Mass/Vol] 131 mg/dL High 65 - 105 mg/dL [facility] Interpretation and review of laboratory results Abnormal [facility] Glucose [Mass/Vol] 122 mg/dL High 65 - 105 mg/dL [facility] Interpretation and review of laboratory results Abnormal [facility] Glucose [Mass/Vol] 119 mg/dL High 65 - 105 mg/dL [facility] Interpretation and review of laboratory results Abnormal [facility] Glucose [Mass/Vol] 135 mg/dL High 65 - 105 mg/dL [facility] Interpretation and review of laboratory results Abnormal [facility] Phosphoruson 10-02-2021 Phosphate [Mass/Vol] 3.0 mg/dL 2.6 - 4.5 mg/dL [facility] Phosphorus, Inorg.on 022 Phosphorus, Inorg. 3.0 mg/dL Normal 2.6-4.5 [facility] Comment on above: Performed By: #### U APRATIBHA #### [facility] [place] [address] Social Services Coordinator: Brandan Ugalde MD RENAL FUNCTION PANELon 10-02 Albumin [Mass/Vol] 2.5 g/dL Low 3.5 - 5.2 g/dL [facility] Anion gap [Moles/Vol] 9 mmol/L 9 - 17 mmol/L [facility] Calcium [Mass/Vol] 8.7 mg/dL 8.6 - 10.4 mg/dL [facility] Chloride [Moles/Vol] 109 mmol/L High 98 - 107 mmol/L [facility] CO2 [Moles/Vol] 23 mmol/L 20 - 31 mmol/L [facility] Creatinine [Mass/Vol] 1.46 mg/dL High 0.50 - 0.90 mg/dL [facility] GFR 48 mL/min Low >60 [facility] [employer] GFR Non- 39 mL/min Low >60 [facility] GFR/1.73 sq M.predicted MDRD (S/P/Bld) [Vol rate/Area] [facility] [employer] Comment on above: Average GFR for 40-4 9 years old: 99 mL/min/1.73sq m Chronic Kidney Disease: <60 mL/min/1.73sq m Kidney failure: <15 mL/min/1.73sq m eGFR calculated using average adult body mass. Additional eGFR calculator available at: http://www.[employer]_crcl_2012.htm GFR/1.73 sq M.predicted MDRD (S/P/Bld) [Vol rate/Area] NOT REPORTED [facility] [employer] Glucose [Mass/Vol] 109 mg/dL High 70 - 99 mg/dL [facility] Interpretation and review of laboratory results Abnormal [facility] Phosphate [Mass/Vol] 3.2 mg/dL 2.6 - 4.5 mg/dL [facility] [employer] Potassium [Moles/Vol] 3.6 mmol/L Low 3.7 - 5.3 mmol/L [facility] Sodium [Moles/Vol] 141 mmol/L 135 - 144 mmol/L [facility] [employer] Urea nitrogen (BldV) [Mass/Vol] 22 mg/dL High 6 - 20 mg/dL [facility] Urea nitrogen/Creatinine (Bld) [Mass ratio] NOT REPORTED [facility] [employer] Renal Function Panelon 10-02 (cont.) Normal [facility] Comment on above: Result Comment: Aver age GFR for 40-49 years old: 99 mL/min/1.73sq m Chronic Kidney Disease: <60 mL/min/1.73sq m Kidney failure: <15 mL/min/1.73sq m eGFR calculated using average adult body mass. Additional eGFR calculator available at: http://www.[employer]/multiple_crcl_2012.htm Performed By: #### PRATIBHA Claudio #### [employer] [address] [place], [place] [id number] Social Services Coordinator: Brandan Ugalde MD Albumin [Mass/Vol] 2.5 g/dL Low 3.5-5.2 [facility] Comment on above: Performed By: #### U PRATIBHA Phipps #### [facility] [employer] [address] [place] [address] Social Services Coordinator: Brandan Ugalde MD Anion gap [Moles/Vol] 9 mmol/L Normal 9-17 [facility] Comment on above: Performed By: #### U PRATIBHA Phipps #### [facility] [address] [place] [address] Social Services Coordinator: Brandan Ugalde MD Calcium [Mass/Vol] 8.7 mg/dL Normal 8.6-10.4 [facility] Comment on above: Performed By: #### U PRATIBHA Phipps #### [address] [address] Social Services Coordinator: Brandan Ugalde MD Chloride [Moles/Vol] 109 mmol/L High 98-107 [facility] Comment on above: Performed By: #### PRATIBHA Claudio #### [facility] [employer] [address] [place] [address] Social Services Coordinator: Brandan Ugalde MD CO2 [Moles/Vol] 23 mmol/L Normal 20-31 [facility] Comment on above: Performed By: #### U PRATIBHA Phipps #### [facility] [employer] [address] [place] [address] Social Services Coordinator: Brandan Ugalde MD Creatinine [Mass/Vol] 1.46 mg/dL High 0.50-0.90 [facility] Comment on above: Performed By: #### U FRANK PhippsO #### [facility] [employer] [address] [place] [address] Social Services Coordinator: Brandan Ugalde MD GFR, Amer 48 mL/min Low >60 [facility] Comment on above: Performed By: #### U A, UMICAO #### [facility] [address] [place] [address] Social Services Coordinator: Brandan Ugalde MD GFR,non Amer 39 mL/min Low >60 [facility] Comment on above: Performed By: #### U A, UMICAO #### [facility] [address] [place] [address] Social Services Coordinator: Brandan Ugalde MD Glucose [Mass/Vol] 109 mg/dL High 70-99 [facility] Comment on above: Performed By: #### U A, UMICAO #### [facility] [address] [place] [address] Social Services Coordinator: Brandan Ugalde MD Phosphorus, Inorg. 3.2 mg/dL Normal 2.6-4.5 [facility] Comment on above: Performed By: #### U A, UMICAO #### [facility] [address] [place] [address] Social Services Coordinator: Brandan Ugalde MD Potassium [Moles/Vol] 3.6 mmol/L Low 3.7-5.3 [facility] Comment on above: Performed By: #### U A, UMICAO #### [facility] [address] [place] [address] Social Services Coordinator: Brandan Ugalde MD Sodium [Moles/Vol] 141 mmol/L Normal 135-144 [facility] Comment on above: Performed By: #### U A, UMICAO #### [facility] [address] [place] [address] Social Services Coordinator: Brandan Ugalde MD Urea nitrogen [Mass/Vol] 22 mg/dL High 6-20 [facility] Comment on above: Performed By: #### U A, UMICAO #### [facility] [address] [place] [address] Social Services Coordinator: Brandan Ugalde MD BUN/CRE Ratio NOT REPORTED Normal 05-24 [facility] Comment on above: Performed By: #### PRATIBHA Claudio #### [facility] [employer] [address] [place] [address] Social Services Coordinator: Brandan Ugalde MD Staging: NOT REPORTED Normal [facility] Comment on above: Performed By: #### PRATIBHA Claudio #### [facility] [employer] [address] [place] [address] Social Services Coordinator: Brandan Ugalde MD Stool PCR Batteryon 10-02-19 22 Campylobacter sp PCR NEGATIVE: No Campylobacter spp. (jejuni or coli) DNA Detected Normal CAMNEG [facility] Comment on above: Performed By: #### PRATIBHA Claudio #### [address] [address] Social Services Coordinator: Brandan Ugalde MD E coli enterotox PCR NEGATIVE: No Enterotoxigenic E. coli (ETEC) Heat-labile and heat-stable (LT/ST) Normal EECNEG [facility] Comment on above: Result Comment: DNA Detected Performed By: #### PRATIBHA Claudio #### [address] [address] Social Services Coordinator: Brandan Ugalde MD Plesiomonas sp PCR Negative Normal PLENEG [facility] Comment on above: Performed By: #### PRATIBHA Claudio #### [address] [address] Social Services Coordinator: Brandan Ugalde MD Salmonella sp PCR Negative Normal SALNEG [facility] Comment on above: Performed By: #### U PRATIBHA Phipps #### [facility] [employer] [address] [place] [address] Social Services Coordinator: Brandan Ugalde MD Shigatoxin gene PCR Negative Normal STXNEG [facility] Comment on above: Performed By: #### U APRATIBHA #### [address] [address] Social Services Coordinator: Brandan Ugalde MD Shigella sp PCR Negative Normal SHINEG [facility] Comment on above: Performed By: #### U PRATIBHA Phipps #### [facility] [employer] [address] [place] [address] Social Services Coordinator: Brandan Ugalde MD Vibrio sp PCR NEGATIVE: No Vibrio (V. vulnificus, V, parahaemolyticus and V. cholerae) DNA Normal VIBNEG [facility] Comment on above: Result Comment: Dete cted Performed By: #### PRATIBHA Claudio #### [address] [address] Social Services Coordinator: Brandan Ugalde MD Yersinia gene PCR Negative Normal YERNEG [facility] Comment on above: Performed By: #### PRATIBHA Claudio #### [address] [address] Social Services Coordinator: Brandan Ugalde MD APTTon 10-01-2021 aPTT Coag (Bld) [Time] 22.1 s Normal 20.5-30.5 [facility] Comment on above: Result Comment: IV Heparin Therapy Range: 48.6-77.8 Performed By: #### L ACWB #### [address] [address] Social Services Coordinator: Brandan Ugalde MD aPTT Coag (Bld) [Time] 22.1 s [facility] Comment on above: IV Heparin Therapy Range: 48.6-77.8 [facility] BETA-HYDROXYBUTERATEon 10-01 Beta-Hydroxybutyrat e 0.2 mmol/L 0.02 - 0.27 mmol/L [facility] Beta Hydroxybutyrateon 10-01 Beta Hydroxybutyrate 0.20 mmol/L Normal 0.02-0.27 [facility] Comment on above: Performed By: #### V BG #### [facility] [employer] [address] [place] [address] Social Services Coordinator: Brandan Ugalde MD Bilirubin, Directon 10-01-19 Bilirubin.indirect [Mass/Vol] 0.08 mg/dL Normal <0.31 [facility] Comment on above: Performed By: #### P TT, FIB, PT, LYTE, DBILI, TBIL, RETCT, CBC, LD, HAPT, PATH ####[facility] [address] [place] [address] Lab Director: Brandan Ugalde MD Bilirubin.indirect [Mass/Vol] 0.08 mg/dL <0.31 [facility] Bilirubin, Totalon 2 Bilirubin [Mass/Vol] 0.17 mg/dL Low 0.3-1.2 [facility] Comment on above: Performed By: #### P TT, FIB, PT, LYTE, DBILI, TBIL, RETCT, CBC, LD, HAPT, PATH ####[facility] [address] [place] [address] Lab Director: Brandan Ugalde MD Bilirubin [Mass/Vol] 0.17 mg/dL Low 0.3 - 1.2 mg/dL [facility] C diff Ag + Toxinon 10-01-19 Specimen Description .FECES Normal [facility] Comment on above: Performed By: #### U A, UMICAO #### [facility] [employer] [address] [place] [address] Social Services Coordinator: Brandan Ugalde MD CBCon 10-01-2021 Erythrocyte distribution width (RBC) [Ratio] 13.8 % Normal 11.8-14.4 [facility] Comment on above: Performed By: #### P TT, FIB, PT, LYTE, DBILI, TBIL, RETCT, CBC, LD, HAPT, PATH ####[facility] [address] [place] [address] Lab Director: Brandan Ugalde MD Hematocrit (Bld) [Volume fraction] 32.2 % Low 36.3-47.1 [facility] Comment on above: Performed By: #### P TT, FIB, PT, LYTE, DBILI, TBIL, RETCT, CBC, LD, HAPT, PATH ####[address] [address] lab Director: Brandan Ugalde MD Hemoglobin (Bld) [Mass/Vol] 10.9 g/dL Low 11.9-15.1 [facility] Comment on above: Performed By: #### P TT, FIB, PT, LYTE, DBILI, TBIL, RETCT, CBC, LD, HAPT, PATH ####[address] [address] lab Director: Brandan Ugalde MD MCH (RBC) [Entitic mass] 29.1 pg Normal 25.2-33.5 [facility] Comment on above: Performed By: #### P TT, FIB, PT, LYTE, DBILI, TBIL, RETCT, CBC, LD, HAPT, PATH ####[address] [address])[phone] Director: Brandan Ugalde MD MCHC (RBC) [Mass/Vol] 33.9 g/dL Normal 28.4-34.8 [facility] Comment on above: Performed By: #### P TT, FIB, PT, LYTE, DBILI, TBIL, RETCT, CBC, LD, HAPT, PATH ####[address] [address] lab Director: Brandan Ugalde MD MCV (RBC) [Entitic vol] 85.9 fL Normal 82.6-102.9 [facility] Comment on above: Performed By: #### P TT, FIB, PT, LYTE, DBILI, TBIL, RETCT, CBC, LD, HAPT, PATH ####[address] [address] Lab Director: Brandan Ugalde MD NRBC Automated 0.0 per 100 WBC Normal 0.0 [facility] Comment on above: Performed By: #### P TT, FIB, PT, LYTE, DBILI, TBIL, RETCT, CBC, LD, HAPT, PATH ####[place] [address] Lab Director: Brandan Ugalde MD Platelet mean volume (Bld) [Entitic vol] 10.4 fL Normal 8.1-13.5 [facility] Comment on above: Performed By: #### P TT, FIB, PT, LYTE, DBILI, TBIL, RETCT, CBC, LD, HAPT, PATH ####[place], [place] [address])[phone] Director: Brandan Ugalde MD Platelets (Bld) [#/Vol] 141 10*3/uL Normal 138-453 [facility] Comment on above: Performed By: #### P TT, FIB, PT, LYTE, DBILI, TBIL, RETCT, CBC, LD, HAPT, PATH ####[place], [place] [address])[phone] Director: Brandan Ugalde MD RBC (Bld) [#/Vol] 3.75 10*6/uL Low 3.95-5.11 [facility] Comment on above: Performed By: #### P TT, FIB, PT, LYTE, DBILI, TBIL, RETCT, CBC, LD, HAPT, PATH ####[place], [place] [address])[phone] Director: Brandan Ugalde MD WBC (Bld) [#/Vol] 4.8 10*3/uL Normal 3.5-11.3 [facility] Comment on above: Performed By: #### P TT, FIB, PT, LYTE, DBILI, TBIL, RETCT, CBC, LD, HAPT, PATH ####[address] [place] [address] lab Director: Brandan Ugalde MD Hematocrit (Bld) [Volume fraction] 32.2 % Low 36.3 - 47.1 % [employer] Hemoglobin.gastroin testinal spec 1 Ql (Stl) 10.9 g/dL Low 11.9 - 15.1 g/dL [facility] Interpretation and review of laboratory results Abnormal [facility] MCH (RBC) [Entitic mass] 29.1 pg 25.2 - 33.[address] [facility] MCHC (RBC) [Mass/Vol] 33.9 g/dL 28.4 - 34.8 g/dL [employer] MCV (RBC) [Entitic vol] 85.9 fL 82.6 - 102.9 fL [employer] NRBC Automated 0.0 0.0 per 100 WBC [employer] Platelet distribution width (Bld) [Ratio] 13.8 % 11.8 - 14.4 % [employer] Platelet mean volume (Bld) [Entitic vol] 10.4 fL 8.1 - 13.[address] [facility] Platelets (Bld) [#/Vol] 141 10*3/uL [employer] RBC (Bld) [#/Vol] 3.75 10*6/uL Low 3.95 - 5.11 m/uL [employer] WBC (Bld) [#/Vol] 4.8 10*3/uL [employer] CBC auto differentialon 09-05 Absolute Eos # 0.05 [facility] th Absolute Immature Granulocyte 0.04 [employer] Absolute Lymph # 1.46 [facility] He alth Absolute Fountain # 0.46 [facility] Basophils (Bld) [#/Vol] 10*3/uL [employer] Basophils/100 WBC (Bld) 1 % 0 - 2 % [employer] Differential Type NOT REPORTED [employer] Eosinophils/100 WBC (Bld) 1 % 1 - 4 % [employer] Hematocrit (Bld) [Volume fraction] 28.5 % Low 36.3 - 47.1 % [employer] Hemoglobin.gastroin testinal spec 1 Ql (Stl) 10.0 g/dL Low 11.9 - 15.1 g/dL [employer] Immature granulocytes/100 WBC (Bld) 1 % High 0 [facility] Interpretation and review of laboratory results Abnormal [facility] Lymphocytes/100 WBC (Bld) 37 % 24 - 43 % [facility] MCH (RBC) [Entitic mass] 29.6 pg 25.2 - 33.5 pg [facility] MCHC (RBC) [Mass/Vol] 35.1 g/dL High 28.4 - 34.8 g/dL [facility] MCV (RBC) [Entitic vol] 84.3 fL 82.6 - 102.9 fL [facility] Monocytes/100 WBC (Bld) 12 % 3 - 12 % [facility] NRBC Automated 0.0 0.0 per 100 WBC [facility] Platelet distribution width (Bld) [Ratio] 13.9 % 11.8 - 14.4 % [facility] Platelet Estimate NOT REPORTED [facility] Platelet mean volume (Bld) [Entitic vol] NOT REPORTED 8.1 - 13.5 fL [facility] Platelets (Bld) [#/Vol] See Reflexed IPF Result [facility] RBC (Bld) [#/Vol] 3.38 10*6/uL Low 3.95 - 5.11 m/uL [facility] RBC (Bld) [#/Vol] NOT REPORTED [facility] Segmented neutrophils/100 WBC (Bld) 48 % 36 - 65 % [facility] Segs Absolute 1.91 [facility] (Bld[facility] [#/Vol] 3.9 10*3/uL [facility] WBC (Bld) [#/Vol] NOT REPORTED [facility] [place] CBC with Diffon 10-01-2021 Abs. Basophil <0.03 Normal 0.00-0.20 [facility] Comment on above: Performed By: #### L ACWB #### [employer] [facility] [place], [place] [id number] Social Services Coordinator: Brandan Ugalde MD Abs.Imm.Granulocyte 0.04 k/uL Normal 0.00-0.30 [facility] Comment on above: Performed By: #### L ACWB #### [employer] [facility] [place], [place] [phone] Social Services Coordinator: Brandan Ugalde MD Abs.Neutrophil (Seg) 1.91 k/uL Normal 1.50-8.10 [facility] Comment on above: Performed By: #### L ACWB #### [address] [address] Social Services Coordinator: Brandan Ugalde MD Basophils/100 WBC (Bld) 1 % Normal 0-2 [facility] Comment on above: Performed By: #### L ACWB #### [address] [address] Social Services Coordinator: Brandan Ugalde MD Eosinophils (Bld) [#/Vol] 0.05 10*3/uL Normal 0.00-0.44 [facility] Comment on above: Performed By: #### L ACWB #### [address] [address] Social Services Coordinator: Brandan Ugalde MD Eosinophils/100 WBC (Bld) 1 % Normal 1-4 [facility] Comment on above: Performed By: #### L ACWB #### [address] [address] Social Services Coordinator: Brandan Ugalde MD Erythrocyte distribution width (RBC) [Ratio] 13.9 % Normal 11.8-14.4 [facility] Comment on above: Performed By: #### L ACWB #### [address] [address] Social Services Coordinator: Brandan Ugalde MD Hematocrit (Bld) [Volume fraction] 28.5 % Low 36.3-47.1 [facility] Comment on above: Performed By: #### L ACWB #### [address] [address] Social Services Coordinator: Brandan Ugalde MD Hemoglobin (Bld) [Mass/Vol] 10.0 g/dL Low 11.9-15.1 [facility] Comment on above: Performed By: #### L ACWB #### [address] [address] Social Services Coordinator: Brandan Ugalde MD Immature granulocytes/100 WBC (Bld) 1 % High 0 [facility] Comment on above: Performed By: #### L ACWB #### [address] [address] Social Services Coordinator: Brandan Ugalde MD Lymphocytes (Bld) [#/Vol] 1.46 10*3/uL Normal 1.10-3.70 [facility] Comment on above: Performed By: #### L ACWB #### [address] [address] Social Services Coordinator: Brandan Ugalde MD Lymphocytes/100 WBC (Bld) 37 % Normal 24-43 [facility] Comment on above: Performed By: #### L ACWB #### [address] [address] Social Services Coordinator: Brandan Ugalde MD MCH (RBC) [Entitic mass] 29.6 pg Normal 25.2-33.5 [facility] Comment on above: Performed By: #### L ACWB #### [address] [address] Social Services Coordinator: Brandan Ugalde MD MCHC (RBC) [Mass/Vol] 35.1 g/dL High 28.4-34.8 [facility] Comment on above: Performed By: #### L ACWB #### [address] [address] Social Services Coordinator: Brandan Ugalde MD MCV (RBC) [Entitic vol] 84.3 fL Normal 82.6-102.9 [facility] Comment on above: Performed By: #### L ACWB #### [address] [address] Social Services Coordinator: Brandan Ugalde MD Monocytes (Bld) [#/Vol] 0.46 10*3/uL Normal 0.10-1.20 [facility] Comment on above: Performed By: #### L ACWB #### [address] [address] Social Services Coordinator: Brandan Ugalde MD Monocytes/100 WBC (Bld) 12 % Normal 3-12 [facility] Comment on above: Performed By: #### L ACWB #### [address] [address] Social Services Coordinator: Brandan Ugalde MD Neutrophil (Seg) 48 % Normal 36-65 [facility] Comment on above: Performed By: #### L ACWB #### [address] [address] Social Services Coordinator: Brandan Ugalde MD NRBC Automated 0.0 per 100 WBC Normal 0.0 [facility] Comment on above: Performed By: #### L ACWB #### [address] [address] Social Services Coordinator: Brandan Ugalde MD Platelet Count See Reflexed IPF Result Normal 138-453 [facility] Comment on above: Performed By: #### L ACWB #### [address] [address] Social Services Coordinator: Brandan Ugalde MD RBC (Bld) [#/Vol] 3.38 10*6/uL Low 3.95-5.11 [facility] Comment on above: Performed By: #### L ACWB #### [address] [address] Social Services Coordinator: Brandan Ugalde MD WBC (Bld) [#/Vol] 3.9 10*3/uL Normal 3.5-11.3 [facility] Comment on above: Performed By: #### L ACWB #### [facility] [employer] [address] [place] [address] Social Services Coordinator: Brandan Ugalde MD Auto Diff Performed NOT REPORTED Normal [facility] Comment on above: Performed By: #### L ACWB #### [facility] [address] [place] [address] Social Services Coordinator: Brandan Ugalde MD MPV NOT REPORTED Normal 8.1-13.5 [facility] Comment on above: Performed By: #### L ACWB #### [facility] [employer] [address] [place] [address] Social Services Coordinator: Brandan Ugalde MD Platelet Comment NOT REPORTED Normal [facility] Comment on above: Performed By: #### L ACWB #### [facility] [employer] [address] [place] [address] Social Services Coordinator: Brandan Ugalde MD RBC morphology finding Nom (Bld) NOT REPORTED Normal [facility] Comment on above: Performed By: #### L ACWB #### [address] [address] Social Services Coordinator: Brandan Ugalde MD WBC Morphology NOT REPORTED Normal [facility] Comment on above: Performed By: #### L ACWB #### [facility] [employer] [address] [place] [address] Social Services Coordinator: Brandan Ugalde MD CHLORIDE, URINE, RANDOMon Chloride, Ur 33 mmol/L [facility] Comment on above: No normal range esta blished. CT ABDOMEN PELVIS WO CONTRAS Ton 10-01-2021 CT ABDOMEN PELVIS WO CONTRAST EXAMINATION: CT OF THE ABDOMEN AND PELVIS WITHOUT CONTRAST 10/01/2021 2:27 pm TECHNIQUE: CT of the abdomen and pelvis was performed without the administration of intravenous contrast. Multiplanar reformatted images are provided for review. Dose modulation, iterative reconstruction, and/or weight based adjustment of the mA/kV was utilized to reduce the radiation dose to as low as reasonably achievable. COMPARISON: None. HISTORY: ORDERING SYSTEM PROVIDED HISTORY: diarrhea TECHNOLOGIST PROVIDED HISTORY: diarrhea Is the patient ?->No Diabetic ketoacidosis. FINDINGS: Lower Chest: There is trace bilateral pleural fluid and mild bibasilar atelectasis. Organs: Limited unenhanced liver is within normal limits. The gallbladder is surgically absent. Limited unenhanced spleen, pancreas, and adrenal glands are unremarkable. Kidneys are symmetric in size and attenuation. No renal or ureteral calculus. No hydronephrosis or perinephric inflammation. GI/Bowel: There is no abnormal bowel distention or pericolonic inflammation. No free intraperitoneal air or fluid. Appendix is normal. Pelvis: Urinary bladder is within normal limits. An intrauterine device is noted. Tubal ligation clips are noted as well. No free fluid in the pelvis. No pelvic lymphadenopathy. Peritoneum/Retroper itoneum: The abdominal aorta is normal in caliber. There is no retroperitoneal or mesenteric lymphadenopathy. Bones/Soft Tissues: There is a tiny fat containing umbilical hernia. No acute or suspicious osseous abnormality. IMPRESSION: 1. No acute process in the abdomen or pelvis. 2. Trace bilateral pleural fluid and mild bibasilar atelectasis. RECOMMENDATIONS: Unavailable Interpreted by: Beulah Felix DO Signed by: Beulah Felix DO 10/01/21 Final result Normal [facility] CT ABDOMEN PELVIS WO CONTRAS T Additional Contrast? Oralon 10-01-2021 1. No acute process in the abdomen or pelvis. 2. Trace bilateral pleural fluid and mild bibasilar atelectasis. RECOMMENDATIONS: Unavailable [facility] RIS CONSOLIDATED EXAMINATION: CT OF THE ABDOMEN AND PELVIS WITHOUT CONTRAST 10/01/2021 2:27 pm TECHNIQUE: CT of the abdomen and pelvis was performed without the administration of intravenous contrast. Multiplanar reformatted images are provided for review. Dose modulation, iterative reconstruction, and/or weight based adjustment of the mA/kV was utilized to reduce the radiation dose to as low as reasonably achievable. COMPARISON: None. HISTORY: ORDERING SYSTEM PROVIDED HISTORY: diarrhea TECHNOLOGIST PROVIDED HISTORY: diarrhea Is the patient ?->No Diabetic ketoacidosis. FINDINGS: Lower Chest: There is trace bilateral pleural fluid and mild bibasilar atelectasis. Organs: Limited unenhanced liver is within normal limits. The gallbladder is surgically absent. Limited unenhanced spleen, pancreas, and adrenal glands are unremarkable. Kidneys are symmetric in size and attenuation. No renal or ureteral calculus. No hydronephrosis or perinephric inflammation. GI/Bowel: There is no abnormal bowel distention or pericolonic inflammation. No free intraperitoneal air or fluid. Appendix is normal. Pelvis: Urinary bladder is within normal limits. An intrauterine device is noted. Tubal ligation clips are noted as well. No free fluid in the pelvis. No pelvic lymphadenopathy. Peritoneum/Retroper itoneum: The abdominal aorta is normal in caliber. There is no retroperitoneal or mesenteric lymphadenopathy. Bones/Soft Tissues: There is a tiny fat containing umbilical hernia. No acute or suspicious osseous abnormality. [facility] RIS CONSOLIDATED Beulah Felix DO - 10/01/2021 EXAMINATION: CT OF THE ABDOMEN AND PELVIS WITHOUT CONTRAST 10/01/2021 2:27 pm TECHNIQUE: CT of the abdomen and pelvis was performed without the administration of intravenous contrast. Multiplanar reformatted images are provided for review. Dose modulation, iterative reconstruction, and/or weight based adjustment of the mA/kV was utilized to reduce the radiation dose to as low as reasonably achievable. COMPARISON: None. HISTORY: ORDERING SYSTEM PROVIDED HISTORY: diarrhea TECHNOLOGIST PROVIDED HISTORY: diarrhea Is the patient ?->No Diabetic ketoacidosis. FINDINGS: Lower Chest: There is trace bilateral pleural fluid and mild bibasilar atelectasis. Organs: Limited unenhanced liver is within normal limits. The gallbladder is surgically absent. Limited unenhanced spleen, pancreas, and adrenal glands are unremarkable. Kidneys are symmetric in size and attenuation. No renal or ureteral calculus. No hydronephrosis or perinephric inflammation. GI/Bowel: There is no abnormal bowel distention or pericolonic inflammation. No free intraperitoneal air or fluid. Appendix is normal. Pelvis: Urinary bladder is within normal limits. An intrauterine device is noted. Tubal ligation clips are noted as well. No free fluid in the pelvis. No pelvic lymphadenopathy. Peritoneum/Retroper itoneum: The abdominal aorta is normal in caliber. There is no retroperitoneal or mesenteric lymphadenopathy. Bones/Soft Tissues: There is a tiny fat containing umbilical hernia. No acute or suspicious osseous abnormality. IMPRESSION: 1. No acute process in the abdomen or pelvis. 2. Trace bilateral pleural fluid and mild bibasilar atelectasis. RECOMMENDATIONS: Unavailable [employer] Phone: Radiology Study observation (narrative) [employer] Phone: CT ABDOMEN PELVIS WO CONTRAS T Additional Contrast? OralOrdered By: Beulah Felix on 10-01-2021 [employer] Phone: Chloride,Random Uron 022 Chloride [Moles/Vol] 33 mmol/L Normal [facility] Comment on above: Result Comment: No n ormal range established. Performed By: #### U A UMICAO #### [facility] [employer] [address] [place] [address] Social Services Coordinator: Brandan Ugalde MD Comp Metabolic Pr/rfx MGon 0 10-01-2021 AST [Catalytic activity/Vol] 12 U/L Normal <32 [facility] Comment on above: Performed By: #### L ACWB #### [facility] [address] [place] [address] Social Services Coordinator: Brandan Ugalde MD Bilirubin [Mass/Vol] mg/dL Low 0.3-1.2 [facility] Comment on above: Performed By: #### L ACWB #### [facility] [employer] [address] [place] [address] Social Services Coordinator: Brandan Ugalde MD (cont.) Normal [facility] Comment on above: Result Comment: Aver age GFR for 40-49 years old: 99 mL/min/1.73sq m Chronic Kidney Disease: <60 mL/min/1.73sq m Kidney failure: <15 mL/min/1.73sq m eGFR calculated using average adult body mass. Additional eGFR calculator available at: http://www.[employer]/multiple_crcl_2012.htm Performed By: #### L ACWB #### [facility] [employer] [address] [place] [address] Social Services Coordinator: Brandan Ugalde MD Albumin [Mass/Vol] 1.9 g/dL Low 3.5-5.2 [facility] Comment on above: Performed By: #### L ACWB #### [address] [address] Social Services Coordinator: Brandan Ugalde MD Albumin/Glob Ratio 0.7 Low 1.0-2.5 [facility] Comment on above: Performed By: #### L ACWB #### [address] [address] Social Services Coordinator: Brandan Ugalde MD Alkaline Phos 69 U/L Normal 35-104 [facility] Comment on above: Performed By: #### L ACWB #### [address] [address] Social Services Coordinator: Brandan Ugalde MD ALT [Catalytic activity/Vol] 11 U/L Normal 5-33 [facility] Comment on above: Performed By: #### L ACWB #### [address] [address] Social Services Coordinator: Brandan Ugalde MD Anion gap [Moles/Vol] 10 mmol/L Normal 9-17 [facility] Comment on above: Performed By: #### L ACWB #### [address] [address] Social Services Coordinator: Brandan Ugalde MD Calcium [Mass/Vol] 8.2 mg/dL Low 8.6-10.4 [facility] Comment on above: Performed By: #### L ACWB #### [address] [address] Social Services Coordinator: Brandan Ugalde MD Chloride [Moles/Vol] 115 mmol/L High 98-107 [facility] Comment on above: Performed By: #### L ACWB #### [address] [address] Social Services Coordinator: Brandan Ugalde MD CO2 [Moles/Vol] 13 mmol/L Low 20-31 [facility] Comment on above: Performed By: #### L ACWB #### [address] [address] Social Services Coordinator: Brandan Ugalde MD Creatinine [Mass/Vol] 1.77 mg/dL High 0.50-0.90 [facility] Comment on above: Performed By: #### L ACWB #### [address] [address] Social Services Coordinator: Brandan Ugalde MD GFR, Amer 38 mL/min Low >60 [facility] Comment on above: Performed By: #### L ACWB #### [address] [address] Social Services Coordinator: Brandan Ugalde MD GFR,non Amer 31 mL/min Low >60 [facility] Comment on above: Performed By: #### L ACWB #### [address] [address] Social Services Coordinator: Brandan Ugalde MD Glucose [Mass/Vol] 184 mg/dL High 70-99 [facility] Comment on above: Performed By: #### L ACWB #### [address] [address] Social Services Coordinator: Brandan Ugalde MD Potassium [Moles/Vol] 3.5 mmol/L Low 3.7-5.3 [facility] Comment on above: Performed By: #### L ACWB #### [address] [address] Social Services Coordinator: Brandan Ugalde MD Protein [Mass/Vol] 4.6 g/dL Low 6.4-8.3 [facility] Comment on above: Performed By: #### L ACWB #### [facility] [employer] [facility] [place] [address] Social Services Coordinator: Brandan Ugalde MD Sodium [Moles/Vol] 138 mmol/L Normal 135-144 [facility] Comment on above: Performed By: #### L ACWB #### [facility] [place] [address] Social Services Coordinator: Brandan Ugalde MD Urea nitrogen [Mass/Vol] 31 mg/dL High - [facility] Comment on above: Performed By: #### L ACWB #### [facility] [employer] [address] [place] [address] Social Services Coordinator: Brandan Ugalde MD BUN/CRE Ratio NOT REPORTED Normal 05-24 [facility] Comment on above: Performed By: #### L ACWB #### [facility] [address] [place] [address] Social Services Coordinator: Brandan Ugalde MD Staging: NOT REPORTED Normal [facility] Comment on above: Performed By: #### L ACWB #### [facility] [employer] [facility] [place] [address] Social Services Coordinator: Brandan Ugalde MD Comprehensive Metabolic Pane l w/ Reflex to on 10-01-2021 Albumin [Mass/Vol] 1.9 g/dL Low 3.5 - 5.2 g/dL [facility] Albumin/Globulin [Mass ratio] 0.7 {ratio} Low [facility] ALP (Bld) [Catalytic activity/Vol] 69 U/L 35 - 104 U/L [facility] ALT [Catalytic activity/Vol] 11 U/L 5 - 33 U/L [facility] Anion gap [Moles/Vol] 10 mmol/L 9 - 17 mmol/L [facility] AST [Catalytic activity/Vol] 12 U/L <32 [facility] Bilirubin [Mass/Vol] mg/dL Low 0.3 - 1.2 mg/dL [facility] [employer] Calcium [Mass/Vol] 8.2 mg/dL Low 8.6 - 10.4 mg/dL [facility] [employer] Chloride [Moles/Vol] 115 mmol/L High 98 - 107 mmol/L [facility] [employer] CO2 [Moles/Vol] 13 mmol/L Low 20 - 31 mmol/L [facility] [employer] Creatinine [Mass/Vol] 1.77 mg/dL High 0.50 - 0.90 mg/dL [facility] [employer] Free PSA/Total PSA [Mass fraction] 4.6 g/dL Low 6.4 - 8.3 g/dL [facility] [employer] GFR 38 mL/min Low >60 [facility] [employer] GFR Non- 31 mL/min Low >60 [facility] GFR/1.73 sq M.predicted MDRD (S/P/Bld) [Vol rate/Area] [facility] [employer] Comment on above: Average GFR for 40-4 9 years old: 99 mL/min/1.73sq m Chronic Kidney Disease: <60 mL/min/1.73sq m Kidney failure: <15 mL/min/1.73sq m eGFR calculated using average adult body mass. Additional eGFR calculator available at: http://www.[employer]/multiple_crcl_2012.htm GFR/1.73 sq M.predicted MDRD (S/P/Bld) [Vol rate/Area] NOT REPORTED [facility] [employer] Glucose [Mass/Vol] 184 mg/dL High 70 - 99 mg/dL [facility] [employer] Interpretation and review of laboratory results Abnormal [facility] [employer] Potassium [Moles/Vol] 3.5 mmol/L Low 3.7 - 5.3 mmol/L [facility] [employer] Sodium [Moles/Vol] 138 mmol/L 135 - 144 mmol/L [facility] [employer] Urea nitrogen (BldV) [Mass/Vol] 31 mg/dL High 6 - 20 mg/dL [facility] [employer] Urea nitrogen/Creatinine (Bld) [Mass ratio] NOT REPORTED [facility] [employer] [facility] [employer] Electrolyte Panelon 10-01-19 22 Anion gap [Moles/Vol] 8 mmol/L Low 9 - 17 mmol/L [employer] Chloride [Moles/Vol] 108 mmol/L High 98 - 107 mmol/L [facility] [employer] CO2 [Moles/Vol] 19 mmol/L Low 20 - 31 mmol/L [facility] Interpretation and review of laboratory results Abnormal [facility] Potassium [Moles/Vol] 3.4 mmol/L Low 3.7 - 5.3 mmol/L [facility] Sodium [Moles/Vol] 135 mmol/L 135 - 144 mmol/L [facility] [facility] Anion gap [Moles/Vol] 9 mmol/L 9 - 17 mmol/L [facility] Chloride [Moles/Vol] 112 mmol/L High 98 - 107 mmol/L [facility] CO2 [Moles/Vol] 16 mmol/L Low 20 - 31 mmol/L [facility] Potassium [Moles/Vol] 3.2 mmol/L Low 3.7 - 5.3 mmol/L [facility] Sodium [Moles/Vol] 137 mmol/L 135 - 144 mmol/L [facility] Electrolyteson 10-01-2021 Anion gap [Moles/Vol] 8 mmol/L Low 9-17 [facility] Comment on above: Performed By: #### U PRATIBHA Phipps #### [facility] [address] [place] [phone] Social Services Coordinator: Brandan Ugalde MD Chloride [Moles/Vol] 108 mmol/L High 98-107 [facility] Comment on above: Performed By: #### U FRANK PhippsO #### [employer] [address] [place] [address] Social Services Coordinator: Brandan Ugalde MD CO2 [Moles/Vol] 19 mmol/L Low 20-31 [facility] Comment on above: Performed By: #### U FRANK PhippsO #### [employer] [address] [place] [address] Social Services Coordinator: Brandan Ugalde MD Potassium [Moles/Vol] 3.4 mmol/L Low 3.7-5.3 [facility] Comment on above: Performed By: #### U A UMICAO #### [facility] [employer] [address] [place] [address] Social Services Coordinator: Brandan Ugalde MD Sodium [Moles/Vol] 135 mmol/L Normal 135-144 [facility] Comment on above: Performed By: #### U PRATIBHA Phipps #### [address] [address] Social Services Coordinator: Brandan Ugalde MD Anion gap [Moles/Vol] 9 mmol/L Normal 9-17 [facility] Comment on above: Performed By: #### L ACWB #### [address] [address] Social Services Coordinator: Brandan Ugalde MD Chloride [Moles/Vol] 112 mmol/L High 98-107 [facility] Comment on above: Performed By: #### L ACWB #### [address] [address] Social Services Coordinator: Brandan Ugalde MD CO2 [Moles/Vol] 16 mmol/L Low 20-31 [facility] Comment on above: Performed By: #### L ACWB #### [address] [address] Social Services Coordinator: Brandan Ugalde MD Potassium [Moles/Vol] 3.2 mmol/L Low 3.7-5.3 [facility] Comment on above: Performed By: #### L ACWB #### [address] [address] Social Services Coordinator: Brandan Ugalde MD Sodium [Moles/Vol] 137 mmol/L Normal 135-144 [facility] Comment on above: Performed By: #### L ACWB #### [address] [address] Social Services Coordinator: Brandan Ugalde MD Fibrinogenon 10-01-2021 Fibrinogen 389 mg/dL Normal 140-420 [facility] Comment on above: Performed By: #### L ACWB #### [facility] [employer] [address] [place] [address] [phone] Social Services Coordinator: Brandan Ugalde MD Fibrinogen 389 mg/dL 140 - 420 mg/dL [facility] Immature Platelet Fractionon 10-01-2021 Platelet, Fluorescence Platelet clumps present, count appears decreased. [facility] Lactate Dehydrogenaseon 09-05 LDH [Catalytic activity/Vol] 233 U/L High 135-214 [facility] Comment on above: Performed By: #### P TT, FIB, PT, LYTE, DBILI, TBIL, RETCT, CBC, LD, HAPT, PATH ####[facility] [address] [place] [address] Lab Director: Brandan Ugalde MD Interpretation and review of laboratory results Abnormal [facility] LD 233 U/L High 135 - 214 U/L [facility] Magnesiumon 10-01-2021 Magnesium [Mass/Vol] 2.0 mg/dL Normal 1.6-2.6 [facility] Comment on above: Performed By: #### L ACWB #### [facility] [employer] [address] [place] [address] Social Services Coordinator: Brandan Ugalde MD Magnesium [Mass/Vol] 2.0 mg/dL 1.6 - 2.6 mg/dL [facility] No Panel Informationon 10-01 [facility] Interpretation and review of laboratory results Abnormal [facility] PLT, Immature Fract.on 10-01 Platelet, Fluoresc. Platelet clumps present, count appears decreased. Normal 138-453 [facility] Comment on above: Performed By: #### L ACWB #### [facility] [employer] [address] [place] [address] Social Services Coordinator: Brandan Ugalde MD PLT, Immature Fract. NOT REPORTED Normal 1.1-10.3 [facility] Comment on above: Performed By: #### L ACWB #### [facility] [employer] [address] [place] [address] Social Services Coordinator: Brandan Ugalde MD POC Glucose Fingerstickon Glucose [Mass/Vol] 177 mg/dL High 65 - 105 mg/dL [facility] Interpretation and review of laboratory results Abnormal [facility] Glucose [Mass/Vol] 188 mg/dL High 65 - 105 mg/dL [facility] Interpretation and review of laboratory results Abnormal [facility] Glucose [Mass/Vol] 225 mg/dL High 65 - 105 mg/dL [facility] Interpretation and review of laboratory results Abnormal [facility] Glucose [Mass/Vol] 197 mg/dL High 65 - 105 mg/dL [facility] Interpretation and review of laboratory results Abnormal [facility] Glucose [Mass/Vol] 137 mg/dL High 65 - 105 mg/dL [facility] Interpretation and review of laboratory results Abnormal [facility] POTASSIUM, URINE, RANDOMon 0 10-01-2021 Potassium, Ur 7 mmol/L [facility] Comment on above: No normal range esta blished. PROTIME-INRon 10-01-2021 INR Coag (Bld) [Relative time] 1.3 {INR} [facility] Comment on above: Therapeutic Range: Moderate Anticoagulant Intensity: INR = 2.0-3.0 High Anticoagulant Intensity: INR = 2.5-3.5 Interpretation and review of laboratory results Abnormal [facility] PT Coag (PPP) [Time] 13.8 s High [facility] PTon 10-01-2021 INR Coag (PPP) [Relative time] 1.1 {INR} Normal [facility] Comment on above: Result Comment: Therapeutic Range: Moderate Anticoagulant Intensity: INR = 2.0-3.0 High Anticoagulant Intensity: INR = 2.5-3.5 Performed By: #### L ACWB #### [employer] [address] [place], [place] [phone] Social Services Coordinator: Brandan Ugalde MD PT Coag (PPP) [Time] 11.4 s Normal 9.1-12.3 [facility] Comment on above: Performed By: #### L ACWB #### [employer] [address] [place] [address] Social Services Coordinator: Brandan Ugalde MD INR Coag (PPP) [Relative time] 1.3 {INR} Normal [facility] Comment on above: Result Comment: Therapeutic Range: Moderate Anticoagulant Intensity: INR = 2.0-3.0 High Anticoagulant Intensity: INR = 2.5-3.5 Performed By: #### L ACWB #### [facility] [address] [place] [address] Social Services Coordinator: Brandan Ugalde MD PT Coag (PPP) [Time] 13.8 s High 9.1-12.3 [facility] Comment on above: Performed By: #### L ACWB #### [facility] [employer] [address] [place] [address] Social Services Coordinator: Brandan Ugalde MD Phosphoruson 3 Interpretation and review of laboratory results Abnormal [facility] Phosphate [Mass/Vol] 1.8 mg/dL Low 2.6 - 4.5 mg/dL [facility] Phosphorus, Inorg.on 022 Phosphorus, Inorg. 1.8 mg/dL Low 2.6-4.5 [facility] Comment on above: Performed By: #### L ACWB #### [facility] [employer] [address] [place] [address] Social Services Coordinator: Brandan Ugalde MD Potassium,Random Uron 2021 Potassium [Moles/Vol] 7.0 mmol/L Normal [facility] Comment on above: Result Comment: No n ormal range established. Performed By: #### U A UMICAO #### [facility] [employer] [address] [place] [address] Social Services Coordinator: Brandan Ugalde MD Protime-INRon 9 INR Coag (Bld) [Relative time] 1.1 {INR} [facility] Comment on above: Therapeutic Range: Moderate Anticoagulant Intensity: INR = 2.0-3.0 High Anticoagulant Intensity: INR = 2.5-3.5 PT Coag (PPP) [Time] 11.4 s [facility] Viral Panelon 2 Adenovirus Not detected Normal [facility] Comment on above: Performed By: #### R COMPLAINT OPERATOR ####[facility] [address] [place], [place] [phone] Director: MD Shoaib Wooten.parapertussi s Not detected Normal [facility] Comment on above: Performed By: #### R COMPLAINT OPERATOR ####[facility] [address] [place], [place] [phone] Director: Brandan Ugalde MD Bordetella pertussis Not detected Normal [facility] Comment on above: Performed By: #### R COMPLAINT OPERATOR ####[address] [phone] Director: Brandan Ugalde MD Chlamyd.pneumoniae Not detected Normal [facility] Comment on above: Performed By: #### R COMPLAINT OPERATOR ####[address] [address] Lab Director: Brandan Ugalde MD Coronavirus 229E Not detected Normal [facility] Comment on above: Performed By: #### R COMPLAINT OPERATOR ####[address] [place] [address] Lab Director: Brandan Ugalde MD Coronavirus HKU1 Not detected Normal [facility] Comment on above: Performed By: #### R COMPLAINT OPERATOR ####[address] [place], [place] [phone] Director: Brandan Ugalde MD Coronavirus NL63 Not detected Normal [facility] Comment on above: Performed By: #### R COMPLAINT OPERATOR ####[address] [place] [address] Lab Director: Brandan Ugalde MD Coronavirus OC43 Not detected Normal [facility] Comment on above: Performed By: #### R COMPLAINT OPERATOR ####[address] [address] Lab Director: Brandan Ugalde MD Human Metapneumo Not detected [facility] Comment on above: Performed By: #### R COMPLAINT OPERATOR ####[address] [address] Lab Director: Brandan Ugalde MD Influenza A Not detected [facility] Comment on above: Performed By: #### R COMPLAINT OPERATOR ####[address] [address] Lab Director: Brandan Ugalde MD Influenza B Not detected Normal [facility] Comment on above: Performed By: #### R COMPLAINT OPERATOR ####[address] [address] Lab Director: Brandan Ugalde MD Mycoplas.pneumoniae Not detected Normal [facility] Comment on above: Result Comment: Perf ormed by multiplexed nucleic acid assay. Performed By: #### R COMPLAINT OPERATOR ####[address] [address] Lab Director: Brandan Ugalde MD Parainfluenza 1 Not detected Normal [facility] Comment on above: Performed By: #### R COMPLAINT OPERATOR ####[address] [address] Lab Director: Brandan Ugalde MD Parainfluenza 2 Not detected Normal [facility] Comment on above: Performed By: #### R COMPLAINT OPERATOR ####[address] [address] Lab Director: Brandan Ugalde MD Parainfluenza 3 Not detected Normal [facility] Comment on above: Performed By: #### R COMPLAINT OPERATOR ####[address] [phone] Director: Brandan Ugalde MD Parainfluenza 4 Not detected Normal [facility] Comment on above: Performed By: #### R COMPLAINT OPERATOR ####[address] [phone] Director: Brandan Ugalde MD Resp Syncytial Virus Not detected Normal [facility] Comment on above: Performed By: #### R COMPLAINT OPERATOR ####[address] [phone] Director: Brandan Ugalde MD Rhino/Enterovirus Not detected [facility] Comment on above: Performed By: #### R COMPLAINT OPERATOR ####[address] [phone] Director: Brandan Ugalde MD SARS-CoV-2 (COVID-19) RNA ARUN+probe Ql (Unsp spec) Not detected Normal [facility] Comment on above: Performed By: #### R COMPLAINT OPERATOR ####[address] [phone] Director: Brandan Ugalde MD Influenza A H1 NOT REPORTED Normal [facility] Comment on above: Performed By: #### R COMPLAINT OPERATOR ####[address] [phone] Director: Brandan Ugalde MD Influenza A H1-2009 NOT REPORTED Normal [facility] Comment on above: Performed By: #### R COMPLAINT OPERATOR ####[address] [phone] Director: Brandan Ugalde MD Influenza A H3 NOT REPORTED Normal [facility] Comment on above: Performed By: #### R COMPLAINT OPERATOR ####[facility] [address] [place], [place] [phone] Lab Director: Brandan Ugalde MD Source: .NASOPHARYNGEAL SWAB Normal [facility] Comment on above: Performed By: #### R COMPLAINT OPERATOR ####[facility] [address] [place], [place] [phone] lab Director: Brandan Ugalde MD Respiratory Panel, Molecular , with COVID-19 (Restricted: peds pts or suitable admitted adults)on 10-01-2021 Adenovirus PCR Not detected Not Detected [facility] B Pertussis by PCR Not detected Not Detected [facility] Bordetella Parapertussis Not detected Not Detected [facility] Chlamydia pneumoniae By PCR Not detected Not Detected [facility] Coronavirus 229E PCR Not detected Not Detected [facility] Coronavirus HKU1 PCR Not detected Not Detected [facility] Coronavirus NL63 PCR Not detected Not Detected [facility] Coronavirus OC43 PCR Not detected Not Detected [facility] Human Metapneumovirus PCR Not detected Not Detected [facility] Influenza A by PCR Not detected Not Detected [facility] Influenza A H1 (2009) PCR NOT REPORTED Not Detected [facility] Influenza A H1 PCR NOT REPORTED Not Detected [facility] Influenza A H3 PCR NOT REPORTED Not Detected [facility] Influenza B by PCR Not detected Not Detected [facility] Mycoplasma pneumo by PCR Not detected Not Detected [facility] Comment on above: Performed by multipl exed nucleic acid assay. Parainfluenza 1 PCR Not detected Not Detected [facility] Parainfluenza 2 PCR Not detected Not Detected [facility] Parainfluenza 3 PCR Not detected Not Detected [facility] Parainfluenza 4 PCR Not detected Not Detected [facility] Resp Syncytial Virus PCR Not detected Not Detected [facility] Rhino/Enterovirus PCR Not detected Not Detected [facility] SARS-CoV-2 (COVID-19) RNA ARUN+probe Ql (Unsp spec) Not detected Not Detected [facility] Specimen Description .NASOPHARYNGEAL SWAB [facility] Retic Counton 10-01-2021 Absolute Retic 0.070 M/uL Normal 0.030-0.080 [facility] Comment on above: Performed By: #### P TT, FIB, PT, LYTE, DBILI, TBIL, RETCT, CBC, LD, HAPT, PATH ####[facility] [address] [place] [address] [facility] Director: Brandan Ugalde MD IRF 9.500 % Normal 2.7-18.3 [facility] Comment on above: Performed By: #### P TT, FIB, PT, LYTE, DBILI, TBIL, RETCT, CBC, LD, HAPT, PATH ####[facility] [address] [place] [address] lab Director: Brandan Ugalde MD Retic Count 1.8 % Normal 0.5-1.9 [facility] Comment on above: Performed By: #### P TT, FIB, PT, LYTE, DBILI, TBIL, RETCT, CBC, LD, HAPT, PATH ####[address] [address] lab Director: Brandan Ugalde MD Retic Hemoglobin 33.5 pg Normal 28.2-35.7 [facility] Comment on above: Performed By: #### P TT, FIB, PT, LYTE, DBILI, TBIL, RETCT, CBC, LD, HAPT, PATH ####[address] [address] lab Director: Brandan Ugalde MD Reticulocyteson 10-01-2021 Absolute Retic # 0.070 [facility] Immature Retic Fract 9.5 % 2.7 - 18.3 % [facility] Retic % 1.8 % 0.5 - 1.9 % [facility] Retic Hemoglobin 33.5 pg 28.2 - 35.7 pg [facility] SODIUM, URINE, RANDOMon 09-05 Sodium (U) [Moles/Vol] 27 mmol/L [facility] Comment on above: No normal range esta blished. Sodium, Random Uron 10-01-19 Sodium (U) [Moles/Vol] 27 mmol/L Normal [facility] Comment on above: Result Comment: No n ormal range established. Performed By: #### U A, UMICAO #### [employer] [address] [place], [place] [phone] Social Services Coordinator: Brandan Ugalde MD Stool PCR Batteryon 10-01-19 Specimen Description .FECES Normal [facility] Comment on above: Performed By: #### U A, UMICAO #### [employer] [address] [place], [place] [phone] Social Services Coordinator: Brandan Ugalde MD Surgical Pathologyon 022 Surgical Pathology (NOTE) [id number] [facility] ANATOMIC PATHOLOGY [address] [place] [phone] SURGICAL PATHOLOGY CONSULTATION Patient Name: YAMILA LOZADA MR#: [id number] Specimen #[id number] Procedures/Addenda PERIPHERAL BLOOD REPORT Date Ordered: 10/04/2021 Status: Signed Out Date Complete: 10/04/2021 By: Horacio Vila M.D. Date Reported: 10/04/2021 INTERPRETATION Peripheral blood: - Normocytic anemia (hemoglobin 10.9 g/dL), hypoproliferative. Recommend correlation with ferritin and other iron studies. RESULTS-COMMENTS PERIPHERAL BLOOD STUDY CBC: Please see the electronic health record for CBC parameters ([id number], 10/01/21, 08:59). PLATELETS: Platelets show normal morphology. The platelet count is 141 k/microliter. LEUKOCYTES: White blood cells show normal morphology. There are no blasts. ERYTHROCYTES: Red blood cells show normal morphology. The absolute reticulocyte count is not increased. Note: The electronic health record is reviewed. Horacio Vila M.D. Source: A: PERIPHERAL BLOOD Normal [facility] Comment on above: Performed By: #### U A, UMICAO #### [employer] [facility] [place], [place] [phone] Social Services Coordinator: Brandan Ugalde MD URINALYSIS WITH MICROSCOPICo n 10-01-2021 - [facility] Amorphous, UA NOT REPORTED None [facility] Bacteria, UA NOT REPORTED None [facility] Bilirubin Urine Negative NEGATIVE [facility] Casts UA 0 TO 2 HYALINE Reference range defined for non-centrifuged specimen. [facility] Color, UA Yellow Yellow [facility] Crystals, UA NOT REPORTED None /HPF [facility] Epithelial Cells UA 0 TO 2 [facility] Glucose, Ur TRACE Abnormal NEGATIVE [facility] Interpretation and review of laboratory results Abnormal [facility] Ketones Ql (U) Negative NEGATIVE [facility] Leukocyte esterase Test strip Ql (U) Negative NEGATIVE [facility] Mucus, UA NOT REPORTED [facility] Nitrite, Urine Negative NEGATIVE [facility] Other Observations UA NOT REPORTED NOT REQ. [facility] pH, UA 5.5 [facility] Protein, UA TRACE Abnormal NEGATIVE [facility] RBC, UA 0 TO 2 [facility] Renal Epithelial, UA NOT REPORTED 0 /HPF [facility] Specific [place], UA 1.006 [facility] Trichomonas, UA NOT REPORTED [facility] Turbidity UA Clear Clear [facility] Urine Hgb SMALL Abnormal NEGATIVE [facility] Urobilinogen, Urine Normal Normal [facility] WBC, UA 2 TO 5 [facility] Comment on above: CORRECTED ON 10/01 A T 1024: PREVIOUSLY REPORTED 5 TO 10 Yeast, UA MANY Abnormal None [facility] Urinalysis w/ Microon 2021 Urine RBC's 0 TO 2 Normal 0-2 [facility] Comment on above: Performed By: #### U AMIC ####[facility] [address] [place], [place] [phone] Lab Director: Brandan Ugalde MD Urine WBC's 2 TO 5 Normal 0-5 [facility] Comment on above: Result Comment: MERT ECTED ON 10/01 AT 1024: PREVIOUSLY REPORTED 5 TO 10 Performed By: #### U AMIC ####[facility] [address] [place], [place] [phone] Lab Director: Brandan Ugalde MD Yeast MANY Abnormal NONE [facility] Comment on above: Performed By: #### U AMIC ####[facility] [address] [place], [place] [phone] Lab Director: Brandan Ugalde MD ----- Normal [facility] Comment on above: Performed By: #### U AMIC ####[address] [phone] Director: Brandan Ugalde MD Bilirubin, SemiQt,Ur Negative Normal NEG [facility] Comment on above: Performed By: #### U AMIC ####[address] [phone] Director: Brandan Ugalde MD Blood, Urine SMALL Abnormal NEG [facility] Comment on above: Performed By: #### U AMIC ####[address] [phone] Director: Brandan Ugalde MD Casts 0 TO 2 HYALINE Normal 0-8 [facility] Comment on above: Result Comment: Refe rence range defined for non-centrifuged specimen. Performed By: #### U AMIC ####[address] [phone] Director: Brandan Ugalde MD Clarity (U) Clear Normal CLEAR [facility] Comment on above: Performed By: #### U AMIC ####[address] [phone] Director: Brandan Ugalde MD Color (U) Yellow Normal YEL [facility] Comment on above: Performed By: #### U AMIC ####[address] [phone] Director: Brandan Ugalde MD Epithelial cells LM Ql (Urine sed) 0 TO 2 Normal 0-5 [facility] Comment on above: Performed By: #### U AMIC ####[address] [phone] Director: Brandan Ugalde MD Glucose Ql (U) TRACE Abnormal NEG [facility] Comment on above: Performed By: #### U AMIC ####[address] [place], [place] [phone] Director: Brandan Ugalde MD Ketones Ql (U) Negative Normal NEG [facility] Comment on above: Performed By: #### U AMIC ####[address] [address] Lab Director: Brandan Ugalde MD Leukocyte esterase Test strip Ql (U) Negative Normal NEG [facility] Comment on above: Performed By: #### U AMIC ####[address] [address])[phone] Director: Brandan Ugalde MD Nitrite,Ur Negative Normal NEG [facility] Comment on above: Performed By: #### U AMIC ####[address] [address])[phone] Director: Brandan Ugalde MD PH,Ur 5.5 Normal 5.0-8.0 [facility] Comment on above: Performed By: #### U AMIC ####[address] [address])[phone] Director: Brandan Ugalde MD Protein Ql (U) TRACE Abnormal NEG [facility] Comment on above: Performed By: #### U AMIC ####[address] [address])[phone] Director: Brandan Ugalde MD Spec. [place],Ur 1.006 Normal 1.005-1.030 [facility] Comment on above: Performed By: #### U AMIC ####[address] [phone] Director: Brandan Ugalde MD Urobilinogen,Ur Normal Normal NORM [facility] Comment on above: Performed By: #### U AMIC ####[address] [place] [address] Lab Director: Brandan Ugalde MD BLOOD GAS, VENOUSon 09-30-19 Josh Test NOT REPORTED [employer] Carboxyhemoglobin 1.5 % 0 - 5 % [employer] Comment on above: Reference Range: Non-Smokers 0-2% Average Smoker 2-4% Heavy Smoker <10% FIO2 INFORMATION NOT PROVIDED [facility] HCO3 (Bld) [Moles/Vol] 17.6 mmol/L Low 24 - 30 mmol/L [facility] Interpretation and review of laboratory results Abnormal [employer] Methemoglobin NOT REPORTED 0.0 - 1.5 % [employer]th Mode NOT REPORTED [employer] Negative Base Excess, Earnest 8.6 mmol/L High 0.0 - 2.0 mmol/L [employer] NOTIFICATION NOT REPORTED [employer] NOTIFICATION TIME NOT REPORTED [employer] O2 Device/Flow/% NOT REPORTED [employer] Oxygen saturation in Blood 55.1 % Low 60.0 - 85.0 % [employer] Oxyhemoglobin NOT REPORTED 95.0 - 98.0 % [employer] pCO2, Earnest 41.1 [employer] pCO2, Earnest, Temp Adj NOT REPORTED [employer] Peep/Cpap NOT REPORTED [employer] pH, Earnest 7.255 Low [employer] pH, Earnest, Temp Adj NOT REPORTED [employer] pO2, Earnest 26.8 Low [employer] pO2, Earnest, Temp Adj NOT REPORTED [employer] Positive Base Excess, Earnest NOT REPORTED 0.0 - 2.0 mmol/L [employer] PSV NOT REPORTED [employer] Pt Temp 37.0 [employer] Pt. Position NOT REPORTED [facility] CenterCharmcastle Entertainment Ltd[employer] th Respiratory Rate NOT REPORTED [facility] Sample Site NOT REPORTED [employer] Set Rate NOT REPORTED [employer] Text for Respiratory NOT REPORTED [employer] Total Hb NOT REPORTED 12.0 - 16.0 g/dl [employer] Total Rate NOT REPORTED [employer] VT NOT REPORTED [facility] Basic Metab w/rfx MGon 09-30 Anion gap [Moles/Vol] 17 mmol/L Normal 9-17 [facility] Comment on above: Performed By: #### V BG #### [employer] [address] [place] [address] Social Services Coordinator: Brandan Ugalde MD Chloride [Moles/Vol] 119 mmol/L High 98-107 [facility] Comment on above: Performed By: #### V BG #### [address] [address] Social Services Coordinator: Brandan Ugalde MD CO2 [Moles/Vol] 11 mmol/L Low 20-31 [facility] Comment on above: Performed By: #### V BG #### [facility] [employer] [address] [place] [address] Social Services Coordinator: Brandan Ugalde MD Potassium [Moles/Vol] 4.2 mmol/L Normal 3.7-5.3 [facility] Comment on above: Result Comment: SPEC IMEN SLIGHTLY HEMOLYZED, RESULTS MAY BE ADVERSELY AFFECTED. Performed By: #### V BG #### [address] [address] Social Services Coordinator: Brandan Ugalde MD Sodium [Moles/Vol] 147 mmol/L High 135-144 [facility] Comment on above: Result Comment: TEST CONFIRMED Performed By: #### V BG #### [address] [address] Social Services Coordinator: Brandan Ugalde MD (cont.) Normal [facility] Comment on above: Result Comment: Aver age GFR for 40-49 years old: 99 mL/min/1.73sq m Chronic Kidney Disease: <60 mL/min/1.73sq m Kidney failure: <15 mL/min/1.73sq m eGFR calculated using average adult body mass. Additional eGFR calculator available at: http://www.HealthStream.com/multiple_crcl_2012.htm Performed By: #### V BG #### [address] [address] Social Services Coordinator: Brandan Ugalde MD Calcium [Mass/Vol] 8.6 mg/dL Normal 8.6-10.4 [facility] Comment on above: Performed By: #### V BG #### [address] [address] Social Services Coordinator: Brandan Ugalde MD Creatinine [Mass/Vol] 2.06 mg/dL High 0.50-0.90 [facility] Comment on above: Performed By: #### V BG #### [address] [address] Social Services Coordinator: Brandan Ugalde MD GFR, Amer 32 mL/min Low >60 [facility] Comment on above: Performed By: #### V BG #### [address] [address] Social Services Coordinator: Brandan Ugalde MD GFR,non Amer 26 mL/min Low >60 [facility] Comment on above: Performed By: #### V BG #### [address] [address] Social Services Coordinator: Brandan Ugalde MD Glucose [Mass/Vol] 160 mg/dL High 70-99 [facility] Comment on above: Performed By: #### V BG #### [address] [address] Social Services Coordinator: Brandan Ugalde MD Urea nitrogen [Mass/Vol] 35 mg/dL High 6-20 [facility] Comment on above: Performed By: #### V BG #### [address] [address] Social Services Coordinator: Brandan Ugalde MD BUN/CRE Ratio NOT REPORTED Normal 9-20 [facility] Comment on above: Performed By: #### V BG #### [address] [address] Social Services Coordinator: Brandan Ugalde MD Staging: NOT REPORTED Normal [facility] Comment on above: Performed By: #### V BG #### [employer] [address] [place] [id number] Social Services Coordinator: Brandan Ugalde MD Basic Metabolic Panelon 09-05 Anion gap [Moles/Vol] 13 mmol/L 9 - 17 mmol/L [employer] Calcium [Mass/Vol] 8.9 mg/dL 8.6 - 10.4 mg/dL [employer] Chloride [Moles/Vol] 119 mmol/L High 98 - 107 mmol/L [employer] CO2 [Moles/Vol] 13 mmol/L Low 20 - 31 mmol/L [employer] Creatinine [Mass/Vol] 2.05 mg/dL High 0.50 - 0.90 mg/dL [employer] GFR 32 mL/min Low >60 [employer] GFR Non- 27 mL/min Low >60 [employer] GFR/1.73 sq M.predicted MDRD (S/P/Bld) [Vol rate/Area] [facility] Comment on above: Average GFR for 40-4 9 years old: 99 mL/min/1.73sq m Chronic Kidney Disease: <60 mL/min/1.73sq m Kidney failure: <15 mL/min/1.73sq m eGFR calculated using average adult body mass. Additional eGFR calculator available at: http://www.[employer]Tech/multiple_crcl_2012.htm GFR/1.73 sq M.predicted MDRD (S/P/Bld) [Vol rate/Area] NOT REPORTED [employer] Glucose [Mass/Vol] 162 mg/dL High 70 - 99 mg/dL [facility] [employer] Interpretation and review of laboratory results Abnormal [employer] Potassium [Moles/Vol] 3.4 mmol/L Low 3.7 - 5.3 mmol/L [employer] Sodium [Moles/Vol] 145 mmol/L High 135 - 144 mmol/L [employer] Urea nitrogen (BldV) [Mass/Vol] 35 mg/dL High 6 - 20 mg/dL [employer] Urea nitrogen/Creatinine (Bld) [Mass ratio] NOT REPORTED [employer] Basic Metabolic Panel w/ Ref maria de jesus to MGon 09-30-2021 Anion gap [Moles/Vol] 17 mmol/L 9 - 17 mmol/L [employer] Calcium [Mass/Vol] 8.6 mg/dL 8.6 - 10.4 mg/dL [facility] [employer] Chloride [Moles/Vol] 119 mmol/L High 98 - 107 mmol/L [facility] CO2 [Moles/Vol] 11 mmol/L Low 20 - 31 mmol/L [facility] [employer] Creatinine [Mass/Vol] 2.06 mg/dL High 0.50 - 0.90 mg/dL [facility] [employer] GFR 32 mL/min Low >60 [facility] [employer] GFR Non- 26 mL/min Low >60 [facility] GFR/1.73 sq M.predicted MDRD (S/P/Bld) [Vol rate/Area] [facility] Comment on above: Average GFR for 40-4 9 years old: 99 mL/min/1.73sq m Chronic Kidney Disease: <60 mL/min/1.73sq m Kidney failure: <15 mL/min/1.73sq m eGFR calculated using average adult body mass. Additional eGFR calculator available at: http://www.[employer]Tech/multiple_crcl_2012.htm GFR/1.73 sq M.predicted MDRD (S/P/Bld) [Vol rate/Area] NOT REPORTED [facility] [employer] Glucose [Mass/Vol] 160 mg/dL High 70 - 99 mg/dL [facility] [employer] Interpretation and review of laboratory results Abnormal [facility] [employer] Potassium [Moles/Vol] 4.2 mmol/L 3.7 - 5.3 mmol/L [facility] Comment on above: SPECIMEN SLIGHTLY HE MOLYZED, RESULTS MAY BE ADVERSELY AFFECTED. Sodium [Moles/Vol] 147 mmol/L High 135 - 144 mmol/L [facility] [employer] Comment on above: TEST CONFIRMED Urea nitrogen (BldV) [Mass/Vol] 35 mg/dL High 6 - 20 mg/dL [facility] Urea nitrogen/Creatinine (Bld) [Mass ratio] NOT REPORTED [facility] [employer] Basic Metabolic Profon 09-30 (cont.) Normal [facility] Comment on above: Result Comment: Aver age GFR for 40-49 years old: 99 mL/min/1.73sq m Chronic Kidney Disease: <60 mL/min/1.73sq m Kidney failure: <15 mL/min/1.73sq m eGFR calculated using average adult body mass. Additional eGFR calculator available at: http://www.HealthStream.com/multiple_crcl_2012.htm Performed By: #### V BG #### [address] [address] Social Services Coordinator: Brandan Ugalde MD Anion gap [Moles/Vol] 13 mmol/L Normal 9-17 [facility] Comment on above: Performed By: #### V BG #### [address] [address] Social Services Coordinator: Brnadan Ugalde MD Calcium [Mass/Vol] 8.9 mg/dL Normal 8.6-10.4 [facility] Comment on above: Performed By: #### V BG #### [address] [address] Social Services Coordinator: Brandan Ugalde MD Chloride [Moles/Vol] 119 mmol/L High 98-107 [facility] Comment on above: Performed By: #### V BG #### [address] [address] Social Services Coordinator: Brandan Ugalde MD CO2 [Moles/Vol] 13 mmol/L Low 20-31 [facility] Comment on above: Performed By: #### V BG #### [address] [address] Social Services Coordinator: Brandan Ugalde MD Creatinine [Mass/Vol] 2.05 mg/dL High 0.50-0.90 [facility] Comment on above: Performed By: #### V BG #### [address] [address] Social Services Coordinator: Brandan Ugalde MD GFR, Amer 32 mL/min Low >60 [facility] Comment on above: Performed By: #### V BG #### [address] [address] Social Services Coordinator: Brandan Ugalde MD GFR,non Amer 27 mL/min Low >60 [facility] Comment on above: Performed By: #### V BG #### [address] [address] Social Services Coordinator: Brandan Ugalde MD Glucose [Mass/Vol] 162 mg/dL High 70-99 [facility] Comment on above: Performed By: #### V BG #### [address] [address] Social Services Coordinator: Brandan Ugalde MD Potassium [Moles/Vol] 3.4 mmol/L Low 3.7-5.3 [facility] Comment on above: Performed By: #### V BG #### [address] [address] Social Services Coordinator: Brandan Ugalde MD Sodium [Moles/Vol] 145 mmol/L High 135-144 [facility] Comment on above: Performed By: #### V BG #### [address] [address] Social Services Coordinator: Brandan Ugalde MD Urea nitrogen [Mass/Vol] 35 mg/dL High 6-20 [facility] Comment on above: Performed By: #### V BG #### [address] [address] Social Services Coordinator: Brandan Ugalde MD BUN/CRE Ratio NOT REPORTED Normal 9-20 [facility] Comment on above: Performed By: #### V BG #### [address] [address] Social Services Coordinator: Brandan Ugalde MD Staging: NOT REPORTED Normal [facility] Comment on above: Performed By: #### V BG #### [address] [address] Social Services Coordinator: Brandan Ugalde MD CBC Auto Differentialon 09-05 Absolute Eos # 0.03 [facility] th Absolute Immature Granulocyte 0.05 [facility] Absolute Lymph # 1.19 [facility] He alth Absolute Fountain # 0.43 [facility] Hea lth Basophils (Bld) [#/Vol] 10*3/uL [facility] Basophils/100 WBC (Bld) 0 % 0 - 2 % [facility] [employer] Differential Type NOT REPORTED [facility] [employer] Eosinophils/100 WBC (Bld) 1 % 1 - 4 % [facility] Hematocrit (Bld) [Volume fraction] 30.9 % Low 36.3 - 47.1 % [facility] Hemoglobin.gastroin testinal spec 1 Ql (Stl) 10.2 g/dL Low 11.9 - 15.1 g/dL [facility] [employer] Immature granulocytes/100 WBC (Bld) 1 % High 0 [facility] [employer] Interpretation and review of laboratory results Abnormal [facility] Lymphocytes/100 WBC (Bld) 28 % 24 - 43 % [facility] [employer] MCH (RBC) [Entitic mass] 29.1 pg 25.2 - 33.[address] [facility] MCHC (RBC) [Mass/Vol] 33.0 g/dL 28.4 - 34.8 g/dL [facility] [employer] MCV (RBC) [Entitic vol] 88.0 fL 82.6 - 102.[address] [facility] Monocytes/100 WBC (Bld) 10 % 3 - 12 % [facility] NRBC Automated 0.0 0.[address] [facility] Platelet distribution width (Bld) [Ratio] 14.2 % 11.8 - 14.4 % [facility] Platelet Estimate NOT REPORTED [facility] Platelet mean volume (Bld) [Entitic vol] 8.5 fL 8.1 - 13.5 fL [employer] Platelets (Bld) [#/Vol] 70 10*3/uL Low [facility] [employer] RBC (Bld) [#/Vol] 3.51 10*6/uL Low 3.95 - 5.11 m/uL [facility] RBC (Bld) [#/Vol] NOT REPORTED [facility] [employer] Segmented neutrophils/100 WBC (Bld) 60 % 36 - 65 % [facility] [employer] Segs Absolute 2.60 [facility] WBC (Bld) [#/Vol] 4.3 10*3/uL [facility] WBC (Bld) [#/Vol] NOT REPORTED [facility] CBC with Diffon 09-30-2021 Abs. Basophil <0.03 Normal 0.00-0.20 [facility] Comment on above: Performed By: #### V BG #### [address] [address] Social Services Coordinator: Brandan Ugalde MD Abs.Imm.Granulocyte 0.05 k/uL Normal 0.00-0.30 [facility] Comment on above: Performed By: #### V BG #### [address] [address] Social Services Coordinator: Brandan Ugalde MD Abs.Neutrophil (Seg) 2.60 k/uL Normal 1.50-8.10 [facility] Comment on above: Performed By: #### V BG #### [address] [address] Social Services Coordinator: Brandan Ugalde MD Basophils/100 WBC (Bld) 0 % Normal 0-2 [facility] Comment on above: Performed By: #### V BG #### [address] [address] Social Services Coordinator: Brandan Ugalde MD Eosinophils (Bld) [#/Vol] 0.03 10*3/uL Normal 0.00-0.44 [facility] Comment on above: Performed By: #### V BG #### [address] [address] Social Services Coordinator: Brandan Ugalde MD Eosinophils/100 WBC (Bld) 1 % Normal 1-4 [facility] Comment on above: Performed By: #### V BG #### [address] [address] Social Services Coordinator: Brandan Ugalde MD Erythrocyte distribution width (RBC) [Ratio] 14.2 % Normal 11.8-14.4 [facility] Comment on above: Performed By: #### V BG #### [address] [address] Social Services Coordinator: Brandan Ugalde MD Hematocrit (Bld) [Volume fraction] 30.9 % Low 36.3-47.1 [facility] Comment on above: Performed By: #### V BG #### [address] [address] Social Services Coordinator: Brandan Ugalde MD Hemoglobin (Bld) [Mass/Vol] 10.2 g/dL Low 11.9-15.1 [facility] Comment on above: Performed By: #### V BG #### [address] [address] Social Services Coordinator: Brandan Ugalde MD Immature granulocytes/100 WBC (Bld) 1 % High 0 [facility] Comment on above: Performed By: #### V BG #### [address] [address] Social Services Coordinator: Brandan Ugalde MD Lymphocytes (Bld) [#/Vol] 1.19 10*3/uL Normal 1.10-3.70 [facility] Comment on above: Performed By: #### V BG #### [address] [address] Social Services Coordinator: Brandan Ugalde MD Lymphocytes/100 WBC (Bld) 28 % Normal 24-43 [facility] Comment on above: Performed By: #### V BG #### [place] [address] Social Services Coordinator: Brandan Ugalde MD MCH (RBC) [Entitic mass] 29.1 pg Normal 25.2-33.5 [facility] Comment on above: Performed By: #### V BG #### [address] [place] [address] Social Services Coordinator: Brandan Ugalde MD MCHC (RBC) [Mass/Vol] 33.0 g/dL Normal 28.4-34.8 [facility] Comment on above: Performed By: #### V BG #### [address] [address] Social Services Coordinator: Brandan Ugalde MD MCV (RBC) [Entitic vol] 88.0 fL Normal 82.6-102.9 [facility] Comment on above: Performed By: #### V BG #### [address] [address] Social Services Coordinator: Brandan Ugalde MD Monocytes (Bld) [#/Vol] 0.43 10*3/uL Normal 0.10-1.20 [facility] Comment on above: Performed By: #### V BG #### [address] [address] Social Services Coordinator: Brandan Ugalde MD Monocytes/100 WBC (Bld) 10 % Normal 3-12 [facility] Comment on above: Performed By: #### V BG #### [address] [address] Social Services Coordinator: Brandan Ugalde MD Neutrophil (Seg) 60 % Normal 36-65 [facility] Comment on above: Performed By: #### V BG #### [address] [address] Social Services Coordinator: Brandan Ugalde MD NRBC Automated 0.0 per 100 WBC Normal 0.0 [facility] Comment on above: Performed By: #### V BG #### [address] [address] Social Services Coordinator: Brandan Ugalde MD Platelet mean volume (Bld) [Entitic vol] 8.5 fL Normal 8.1-13.5 [facility] Comment on above: Performed By: #### V BG #### [address] [address] Social Services Coordinator: Brandan Ugalde MD Platelets (Bld) [#/Vol] 70 10*3/uL Low 138-453 [facility] Comment on above: Performed By: #### V BG #### [address] [address] Social Services Coordinator: Brandan Ugalde MD RBC (Bld) [#/Vol] 3.51 10*6/uL Low 3.95-5.11 [facility] Comment on above: Performed By: #### V BG #### [address] [address] Social Services Coordinator: Brandan Ugalde MD WBC (Bld) [#/Vol] 4.3 10*3/uL Normal 3.5-11.3 [facility] Comment on above: Performed By: #### V BG #### [address] [address] Social Services Coordinator: Brandan Ugaled MD Auto Diff Performed NOT REPORTED Normal [facility] Comment on above: Performed By: #### V BG #### [address] [address] Social Services Coordinator: Brandan Ugalde MD Platelet Comment NOT REPORTED Normal [facility] Comment on above: Performed By: #### V BG #### [address] [address] Social Services Coordinator: Brandan Ugalde MD RBC morphology finding Nom (Bld) NOT REPORTED Normal [facility] Comment on above: Performed By: #### V BG #### [address] [address] Social Services Coordinator: Brandan Ugalde MD WBC Morphology NOT REPORTED Normal [facility] Comment on above: Performed By: #### V BG #### [employer] [address] [place] [address] Social Services Coordinator: Brandan Ugalde MD Cult,Urineon 09-30-2021 Cult,Urine Specimen Description .CLEAN CATCH URINE Special Requests NOT REPORTED Culture YEAST, NOT SHENG ALBICANS OR SHENG DUBLINIENSIS 10 to 50,000 CFU/ML YEAST, NOT SHENG ALBICANS OR SHENG DUBLINIENSIS 10 to 50,000 CFU/ML DIFFERENT COLONY MORPHOLOGY Report Status FINAL 09/30/2021 Abnormal [facility] Comment on above: Performed By: #### V BG #### [employer] [address] [place] [address] Social Services Coordinator: Brandan Ugalde MD Culture, Urineon 09-30-2021 Bacteria identified Cx Nom (U) YEAST, NOT SHENG ALBICANS OR SHENG DUBLINIENSIS 10 to 50,000 CFU/ML Abnormal [facility] [employer] Bacteria identified Cx Nom (U) YEAST, NOT SHENG ALBICANS OR SHENG DUBLINIENSIS 10 to 50,000 CFU/ML DIFFERENT COLONY MORPHOLOGY Abnormal [employer] Interpretation and review of laboratory results Abnormal [employer] Special Requests NOT REPORTED [facility] [employer] Specimen Description .CLEAN CATCH URINE [facility] [employer] Electrolyte Panelon 09-30-19 Anion gap [Moles/Vol] 11 mmol/L 9 - 17 mmol/L [employer] Chloride [Moles/Vol] 115 mmol/L High 98 - 107 mmol/L [employer] CO2 [Moles/Vol] 16 mmol/L Low 20 - 31 mmol/L [facility] Interpretation and review of laboratory results Abnormal [employer] Potassium [Moles/Vol] 3.5 mmol/L Low 3.7 - 5.3 mmol/L [employer] Sodium [Moles/Vol] 142 mmol/L 135 - 144 mmol/L [facility] [employer] Electrolyteson 09-30-2021 Anion gap [Moles/Vol] 11 mmol/L Normal - [facility] Comment on above: Performed By: #### V BG #### [employer] [address] [place] [address] Social Services Coordinator: Brandan Ugalde MD Chloride [Moles/Vol] 115 mmol/L High 98-107 [facility] Comment on above: Performed By: #### V BG #### [address] [address] Social Services Coordinator: Brandan Ugalde MD CO2 [Moles/Vol] 16 mmol/L Low 20-31 [facility] Comment on above: Performed By: #### V BG #### [address] [address] Social Services Coordinator: Brandan Ugalde MD Potassium [Moles/Vol] 3.5 mmol/L Low 3.7-5.3 [facility] Comment on above: Performed By: #### V BG #### [address] [address] Social Services Coordinator: Brandan Ugalde MD Sodium [Moles/Vol] 142 mmol/L Normal 135-144 [facility] Comment on above: Performed By: #### V BG #### [address] [address] Social Services Coordinator: Brandan Ugalde MD Hemoglobin A1Con 09-30-2021 Glucose [Mass/Vol] 390 mg/dL Normal [facility] Comment on above: Result Comment: The ADA and AACC recommend providing the estimated average glucose result to permit better patient understanding of their HBA1c result. Performed By: #### V BG #### [facility] [employer] [address] [place] [address] Social Services Coordinator: Brandan Ugalde MD HbA1c (Bld) [Mass fraction] 15.2 % High 4.0-6.0 [facility] Comment on above: Performed By: #### V BG #### [address] [address] Social Services Coordinator: Brandan Ugalde MD Glucose [Mass/Vol] 390 mg/dL [facility] Comment on above: The ADA and AACC rec ommend providing the estimated average glucose result to permit better patient understanding of their HBA1c result. HbA1c (Bld) [Mass fraction] 15.2 % High 4.0 - 6.0 % [facility] Interpretation and review of laboratory results Abnormal [facility] MAGNESIUMon 09-30-2021 Magnesium [Mass/Vol] 1.8 mg/dL 1.6 - 2.6 mg/dL [facility] Magnesiumon 09-30-2021 Magnesium [Mass/Vol] 1.8 mg/dL Normal 1.6-2.6 [facility] Comment on above: Performed By: #### V BG #### [employer] [address] [place] [address] Social Services Coordinator: Brandan Ugalde MD No Panel Informationon 09-30 [facility] POC Glucose Fingerstickon Glucose [Mass/Vol] 150 mg/dL High 65 - 105 mg/dL [facility] Interpretation and review of laboratory results Abnormal [facility] [place] Glucose [Mass/Vol] 177 mg/dL High 65 - 105 mg/dL [facility] Interpretation and review of laboratory results Abnormal [facility] Glucose [Mass/Vol] 148 mg/dL High 65 - 105 mg/dL [facility] Interpretation and review of laboratory results Abnormal [facility] Glucose [Mass/Vol] 210 mg/dL High 65 - 105 mg/dL [facility] Interpretation and review of laboratory results Abnormal [facility] SPECIMEN REJECTIONon 022 - NOT REPORTED [facility] Ordered Test CDP [facility] Reason for Rejection Unable to perform testing: Specimen clotted. [facility] [employer] Comment on above: GEORGINA MONTERO NOTIFIED Specimen source Nom (Unsp spec) .BLOOD [facility] Specimen Rejectionon 022 Reason for rejection Unable to perform testing: Specimen clotted. Normal [facility] Comment on above: Result Comment: GEORGINA MEDINA NOTIFIED Performed By: #### V BG #### [employer] [address] [place] [address] Social Services Coordinator: Brandan Ugalde MD Source of sample .BLOOD Normal [facility] Comment on above: Performed By: #### V BG #### [facility] [address] [place] [address] Social Services Coordinator: Brandan Ugalde MD Test ordered CDP Normal [facility] Comment on above: Performed By: #### V BG #### [facility] [address] [place] [address] Social Services Coordinator: Brandan Ugalde MD ----- NOT REPORTED Normal [facility] Comment on above: Performed By: #### V BG #### [facility] [employer] [address] [place] [address] Social Services Coordinator: Brandan Ugalde MD Urinalysis w/ Microon 2021 Amorphous sediment LM Ql (Urine sed) NOT REPORTED Normal NONE [facility] Comment on above: Performed By: #### U AMIC ####[address] [address] Lab Director: Brandan Ugalde MD Bacteria NOT REPORTED Normal NONE [facility] Comment on above: Performed By: #### U AMIC ####[address] [address] Lab Director: Brandan Ugalde MD Crystals LM Nom (Urine sed) NOT REPORTED Normal NONE [facility] Comment on above: Performed By: #### U AMIC ####[address] [address] Lab Director: Brandan Ugalde MD Epithelial, Renal NOT REPORTED Normal 0 [facility] Comment on above: Performed By: #### U AMIC ####[facility] [address] [place] [address] Lab Director: Brandan Ugalde MD Mucus Strands NOT REPORTED Normal NONE [facility] Comment on above: Performed By: #### U AMIC ####[address] [address] Lab Director: Brandan Ugalde MD Other Observations NOT REPORTED Normal NREQ [facility] Comment on above: Performed By: #### U AMIC ####[address] [address] Lab Director: Brandan Ugalde MD Trichomonas NOT REPORTED Normal NONE [facility] Comment on above: Performed By: #### U AMIC ####[address] [address] Lab Director: Brandan Ugalde MD Venous Blood Gaseson 022 Body Temp. 37.0 Normal [facility] Comment on above: Performed By: #### V BG #### [facility] [employer] [address] [place] [address] Social Services Coordinator: Brandan Ugalde MD Carboxy Hgb 1.5 % Normal 0-5 [facility] Comment on above: Result Comment: Reference Range: Non-Smokers 0-2% Average Smoker 2-4% Heavy Smoker <10% Performed By: #### V BG #### [address] [address] Social Services Coordinator: Brandan Ugalde MD FIO2 INFORMATION NOT PROVIDED Normal [facility] Comment on above: Performed By: #### V BG #### [facility] [employer] [address] [place] [address] Social Services Coordinator: Brandan Ugalde MD HCO3 (Bld) [Moles/Vol] 17.6 mmol/L Low 24-30 [facility] Comment on above: Performed By: #### V BG #### [facility] [employer] [address] [place] [address] Social Services Coordinator: Brandan Ugalde MD Negative Base Excess 8.6 mmol/L High 0.0-2.0 [facility] Comment on above: Performed By: #### V BG #### [facility] [employer] [address] [place] [address] Social Services Coordinator: Brandan Ugalde MD Oxygen (Bld) [Partial pressure] 26.8 mm[Hg] Low 30-50 [facility] Comment on above: Performed By: #### V BG #### [address] [address] Social Services Coordinator: Brandan Ugalde MD Oxygen saturation in Blood 55.1 % Low 60.0-85.0 [facility] Comment on above: Performed By: #### V BG #### [address] [address] Social Services Coordinator: Brandan Ugalde MD pCO2 41.1 Normal 39-55 [facility] Comment on above: Performed By: #### V BG #### [address] [address] Social Services Coordinator: Brandan Ugalde MD pH (Bld) 7.255 [pH] Low 7.320-7.420 [facility] Comment on above: Performed By: #### V BG #### [address] [address] Social Services Coordinator: Brandan Ugalde MD Josh Test NOT REPORTED Normal [facility] Comment on above: Performed By: #### V BG #### [address] [address] Social Services Coordinator: Brandan Ugalde MD Methemoglobin NOT REPORTED Normal 0.0-1.5 [facility] Comment on above: Performed By: #### V BG #### [facility] [employer] [address] [place] [address] Social Services Coordinator: Brandan Ugalde MD Mode NOT REPORTED Normal [facility] Comment on above: Performed By: #### V BG #### [address] [address] Social Services Coordinator: Brandan Ugalde MD Notification Time NOT REPORTED Normal [facility] Comment on above: Performed By: #### V BG #### [address] [address] Social Services Coordinator: Brandan Ugalde MD Notification: NOT REPORTED Normal [facility] Comment on above: Performed By: #### V BG #### [address] [address] Social Services Coordinator: Brandan Ugalde MD O2 Device/Flow/% NOT REPORTED Normal [facility] Comment on above: Performed By: #### V BG #### [address] [address] Social Services Coordinator: Brandan Ugalde MD Oxyhemoglobin NOT REPORTED Normal 95.0-98.0 [facility] Comment on above: Performed By: #### V BG #### [address] [address] Social Services Coordinator: Brandan Ugalde MD Pco2 Adj'd for Temp. NOT REPORTED Normal 39-55 [facility] Comment on above: Performed By: #### V BG #### [address] [address] Social Services Coordinator: Brandan Ugalde MD PEEP/CPAP NOT REPORTED Normal [facility] Comment on above: Performed By: #### V BG #### [address] [address] Social Services Coordinator: Brandan Ugalde MD pH Adjst'd for Temp. NOT REPORTED Normal 7.320-7.420 [facility] Comment on above: Performed By: #### V BG #### [address] [address] Social Services Coordinator: Brandan Ugalde MD pO2 Adj'd for Temp. NOT REPORTED Normal 30-50 [facility] Comment on above: Performed By: #### V BG #### [facility] [employer] [address] [place] [address] Social Services Coordinator: Brandan Ugalde MD Positive Base Excess NOT REPORTED Normal 0.0-2.0 [facility] Comment on above: Performed By: #### V BG #### [address] [address] Social Services Coordinator: Brandan Ugalde MD PSV NOT REPORTED Normal [facility] Comment on above: Performed By: #### V BG #### [address] [address] Social Services Coordinator: Brandan Ugalde MD Pt. Position NOT REPORTED Normal [facility] Comment on above: Performed By: #### V BG #### [address] [address] Social Services Coordinator: Brandan Ugalde MD Respiratory Rate NOT REPORTED Normal [facility] Comment on above: Performed By: #### V BG #### [address] [address] Social Services Coordinator: Brandan Ugalde MD Set Rate NOT REPORTED Normal [facility] Comment on above: Performed By: #### V BG #### [facility] [employer] [address] [place] [address] Social Services Coordinator: Brandan Ugalde MD Site Drawn NOT REPORTED Normal [facility] Comment on above: Performed By: #### V BG #### [facility] [employer] [address] [place] [address] Social Services Coordinator: Brandan Ugalde MD Text for Respiratory NOT REPORTED Normal [facility] Comment on above: Performed By: #### V BG #### [facility] [employer] [address] [place] [address] Social Services Coordinator: Brandan Ugalde MD Total Hb NOT REPORTED Normal 12.0-16.0 [facility] Comment on above: Performed By: #### V BG #### [employer] [address] [place], [place] [phone] Social Services Coordinator: Brandan Ugalde MD Total Rate NOT REPORTED Normal [facility] Comment on above: Performed By: #### V BG #### [employer] [address] [place], [place] [phone] Social Services Coordinator: Brandan Ugalde MD VT NOT REPORTED Normal [facility] Comment on above: Performed By: #### V BG #### [employer] [address] [place], [place] [phone] Social Services Coordinator: Brandan Ugalde MD Basic Metabolic Panelon 09-05 Anion gap [Moles/Vol] 11 mmol/L 9 - 17 mmol/L [employer] Calcium [Mass/Vol] 7.8 mg/dL Low 8.6 - 10.4 mg/dL [employer] Chloride [Moles/Vol] 106 mmol/L 98 - 107 mmol/L [employer] CO2 [Moles/Vol] 12 mmol/L Low 20 - 31 mmol/L [employer] Creatinine [Mass/Vol] 2.3 mg/dL High 0.50 - 0.90 mg/dL [employer] GFR 28 mL/min Low >60 [employer] GFR Non- 23 mL/min Low >60 [employer] GFR/1.73 sq M.predicted MDRD (S/P/Bld) [Vol rate/Area] [facility] Comment on above: Average GFR for 40-4 9 years old: 99 mL/min/1.73sq m Chronic Kidney Disease: <60 mL/min/1.73sq m Kidney failure: <15 mL/min/1.73sq m eGFR calculated using average adult body mass. Additional eGFR calculator available at: http://www.[employer]Stream.[employer]/multiple_crcl_2012.htm GFR/1.73 sq M.predicted MDRD (S/P/Bld) [Vol rate/Area] NOT REPORTED [facility] Glucose [Mass/Vol] 301 mg/dL High 70 - 99 mg/dL [email or web address] Interpretation and review of laboratory results Abnormal [employer] Potassium [Moles/Vol] 4.1 mmol/L 3.7 - 5.3 mmol/L [facility] Comment on above: SPECIMEN SLIGHTLY HE MOLYZED, RESULTS MAY BE ADVERSELY AFFECTED. Sodium [Moles/Vol] 129 mmol/L Low 135 - 144 mmol/L [employer] Urea nitrogen (BldV) [Mass/Vol] 32 mg/dL High 6 - 20 mg/dL [employer] Urea nitrogen/Creatinine (Bld) [Mass ratio] NOT REPORTED [employer] Anion gap [Moles/Vol] 11 mmol/L 9 - 17 mmol/L [employer] Calcium [Mass/Vol] 8.0 mg/dL Low 8.6 - 10.4 mg/dL [employer] Chloride [Moles/Vol] 110 mmol/L High 98 - 107 mmol/L [employer] CO2 [Moles/Vol] 12 mmol/L Low 20 - 31 mmol/L [employer] Creatinine [Mass/Vol] 2.29 mg/dL High 0.50 - 0.90 mg/dL [employer] GFR 28 mL/min Low >60 [employer] GFR Non- 23 mL/min Low >60 [employer] GFR/1.73 sq M.predicted MDRD (S/P/Bld) [Vol rate/Area] [facility] Comment on above: Average GFR for 40-4 9 years old: 99 mL/min/1.73sq m Chronic Kidney Disease: <60 mL/min/1.73sq m Kidney failure: <15 mL/min/1.73sq m eGFR calculated using average adult body mass. Additional eGFR calculator available at: http://www.[employer]Stream.[employer]/multiple_crcl_2012.htm GFR/1.73 sq M.predicted MDRD (S/P/Bld) [Vol rate/Area] NOT REPORTED [employer] Glucose [Mass/Vol] 217 mg/dL High 70 - 99 mg/dL [email or web address] Interpretation and review of laboratory results Abnormal [employer] Potassium [Moles/Vol] 3.4 mmol/L Low 3.7 - 5.3 mmol/L [employer] Sodium [Moles/Vol] 133 mmol/L Low 135 - 144 mmol/L [employer] Urea nitrogen (BldV) [Mass/Vol] 32 mg/dL High 6 - 20 mg/dL [facility] [employer] Urea nitrogen/Creatinine (Bld) [Mass ratio] NOT REPORTED [facility] [employer] Anion gap [Moles/Vol] 7 mmol/L Low 9 - 17 mmol/L [facility] [employer] Calcium [Mass/Vol] 8.0 mg/dL Low 8.6 - 10.4 mg/dL [facility] [employer] Chloride [Moles/Vol] 113 mmol/L High 98 - 107 mmol/L [facility] [employer] CO2 [Moles/Vol] 13 mmol/L Low 20 - 31 mmol/L [facility] [employer] Creatinine [Mass/Vol] 2.39 mg/dL High 0.50 - 0.90 mg/dL [facility] [employer] GFR 27 mL/min Low >60 [facility] [employer] GFR Non- 22 mL/min Low >60 [facility] [employer] GFR/1.73 sq M.predicted MDRD (S/P/Bld) [Vol rate/Area] [facility] Comment on above: Average GFR for 40-4 9 years old: 99 mL/min/1.73sq m Chronic Kidney Disease: <60 mL/min/1.73sq m Kidney failure: <15 mL/min/1.73sq m eGFR calculated using average adult body mass. Additional eGFR calculator available at: http://www.[employer]/multiple_crcl_2012.htm GFR/1.73 sq M.predicted MDRD (S/P/Bld) [Vol rate/Area] NOT REPORTED [facility] Glucose [Mass/Vol] 127 mg/dL High 70 - 99 mg/dL [facility] Potassium [Moles/Vol] 3.7 mmol/L 3.7 - 5.3 mmol/L [facility] [employer] Comment on above: SPECIMEN SLIGHTLY HE MOLYZED, RESULTS MAY BE ADVERSELY AFFECTED. Sodium [Moles/Vol] 133 mmol/L Low 135 - 144 mmol/L [facility] Urea nitrogen (BldV) [Mass/Vol] 32 mg/dL High 6 - 20 mg/dL [facility] [employer] Urea nitrogen/Creatinine (Bld) [Mass ratio] NOT REPORTED [facility] [employer] Basic Metabolic Profon 09-29 (cont.) Normal [facility] Comment on above: Result Comment: Aver age GFR for 40-49 years old: 99 mL/min/1.73sq m Chronic Kidney Disease: <60 mL/min/1.73sq m Kidney failure: <15 mL/min/1.73sq m eGFR calculated using average adult body mass. Additional eGFR calculator available at: http://www.HealthStream.[employer]rove/multiple_crcl_2012.htm Performed By: #### C ISABELLA IPF, BMP #### [facility] [address] [place] [address] Social Services Coordinator: Brandan Ugalde MD Anion gap [Moles/Vol] 11 mmol/L Normal 9-17 [facility] Comment on above: Performed By: #### C ISABELLA IPF, BMP #### [facility] [address] [place] [address] Social Services Coordinator: Brandan Ugalde MD Calcium [Mass/Vol] 7.8 mg/dL Low 8.6-10.4 [facility] Comment on above: Performed By: #### C ISABELLA IPF, BMP #### [facility] [address] [place] [address] Social Services Coordinator: Brandan Ugalde MD Chloride [Moles/Vol] 106 mmol/L Normal 98-107 [facility] Comment on above: Performed By: #### C DP IPF, BMP #### [facility] [address] [place] [address] Social Services Coordinator: Brandan Ugalde MD CO2 [Moles/Vol] 12 mmol/L Low 20-31 [facility] Comment on above: Performed By: #### C DP IPF, BMP #### [facility] [address] [place] [address] Social Services Coordinator: Brandan Ugalde MD Creatinine [Mass/Vol] 2.30 mg/dL High 0.50-0.90 [facility] Comment on above: Performed By: #### C DP, IPF, BMP #### [facility] [address] [place] [address] Social Services Coordinator: Brandan Ugalde MD GFR, Amer 28 mL/min Low >60 [facility] Comment on above: Performed By: #### C EMILIO MASON, BMP #### [facility] [employer] [address] [place] [address] Social Services Coordinator: Brandan Ugalde MD GFR,non Amer 23 mL/min Low >60 [facility] Comment on above: Performed By: #### C ISABELLA IPF, BMP #### [facility] [employer] [address] [place] [address] Social Services Coordinator: Brandan Ugalde MD Glucose [Mass/Vol] 301 mg/dL High 70-99 [facility] Comment on above: Performed By: #### C ISABELLA IPF, BMP #### [address] [address] Social Services Coordinator: Brandan Ugalde MD Potassium [Moles/Vol] 4.1 mmol/L Normal 3.7-5.3 [facility] Comment on above: Result Comment: SPEC IMEN SLIGHTLY HEMOLYZED, RESULTS MAY BE ADVERSELY AFFECTED. Performed By: #### C EMILIO MASON, BMP #### [address] [address] Social Services Coordinator: Brandan Ugalde MD Sodium [Moles/Vol] 129 mmol/L Low 135-144 [facility] Comment on above: Performed By: #### C ISABELLA IPF, BMP #### [facility] [address] [place] [address] Social Services Coordinator: Brandan Ugalde MD Urea nitrogen [Mass/Vol] 32 mg/dL High 6-20 [facility] Comment on above: Performed By: #### C ISABELLA IPF, BMP #### [facility] [employer] [address] [place] [address] Social Services Coordinator: Brandan Ugalde MD BUN/CRE Ratio NOT REPORTED Normal 9-20 [facility] Comment on above: Performed By: #### C DP, IPF, BMP #### [employer] [facility] [place] [address] Social Services Coordinator: Brandan Ugalde MD Staging: NOT REPORTED Normal [facility] Comment on above: Performed By: #### C DP, IPF, BMP #### [facility] [address] [place] [address] Social Services Coordinator: Brandan Ugalde MD (cont.) Normal [facility] Comment on above: Result Comment: Aver age GFR for 40-49 years old: 99 mL/min/1.73sq m Chronic Kidney Disease: <60 mL/min/1.73sq m Kidney failure: <15 mL/min/1.73sq m eGFR calculated using average adult body mass. Additional eGFR calculator available at: http://www.[employer]/multiple_crcl_2012.htm Performed By: #### C DP IPF, BMP #### [facility] [address] [place] [address] Social Services Coordinator: Brandan Ugalde MD Anion gap [Moles/Vol] 11 mmol/L Normal 9-17 [facility] Comment on above: Performed By: #### C DP, IPF, BMP #### [facility] [address] [place] [address] Social Services Coordinator: Brandan Ugalde MD Calcium [Mass/Vol] 8.0 mg/dL Low 8.6-10.4 [facility] Comment on above: Performed By: #### C DP, IPF, BMP #### [employer] [facility] [place] [address] Social Services Coordinator: Brandan Ugalde MD Chloride [Moles/Vol] 110 mmol/L High 98-107 [facility] Comment on above: Performed By: #### C DP, IPF, BMP #### [employer] [address] [place] [address] Social Services Coordinator: Brandan Ugalde MD CO2 [Moles/Vol] 12 mmol/L Low 20-31 [facility] Comment on above: Performed By: #### C DP, IPF, BMP #### [facility] [employer] [address] [place] [address] Social Services Coordinator: Brandan Ugalde MD Creatinine [Mass/Vol] 2.29 mg/dL High 0.50-0.90 [facility] Comment on above: Performed By: #### C DP, IPF, BMP #### [facility] [employer] [address] [place] [address] Social Services Coordinator: Brandan Ugalde MD GFR, Amer 28 mL/min Low >60 [facility] Comment on above: Performed By: #### C DP, IPF, BMP #### [facility] [employer] [address] [place] [address] Social Services Coordinator: Brandan Ugalde MD GFR,non Amer 23 mL/min Low >60 [facility] Comment on above: Performed By: #### C DP, IPF, BMP #### [facility] [employer] [address] [place] [address] Social Services Coordinator: Brandan Ugalde MD Glucose [Mass/Vol] 217 mg/dL High 70-99 [facility] Comment on above: Performed By: #### C DP, IPF, BMP #### [facility] [address] [place] [address] Social Services Coordinator: Brandan Ugalde MD Potassium [Moles/Vol] 3.4 mmol/L Low 3.7-5.3 [facility] Comment on above: Performed By: #### C DP, IPF, BMP #### [facility] [address] [place] [address] Social Services Coordinator: Brandan Ugalde MD Sodium [Moles/Vol] 133 mmol/L Low 135-144 [facility] Comment on above: Performed By: #### C DP, IPF, BMP #### [facility] [address] [place] [address] Social Services Coordinator: Brandan Ugalde MD Urea nitrogen [Mass/Vol] 32 mg/dL High 6-20 [facility] Comment on above: Performed By: #### C DP, IPF, BMP #### [facility] [address] [place] [address] Social Services Coordinator: Brandan Ugalde MD BUN/CRE Ratio NOT REPORTED Normal - [facility] Comment on above: Performed By: #### C DP, IPF, BMP #### [facility] [address] [place] [address] Social Services Coordinator: Brandan Ugalde MD Staging: NOT REPORTED Normal [facility] Comment on above: Performed By: #### C DP, IPF, BMP #### [facility] [address] [place] [address] Social Services Coordinator: Brandan Ugalde MD (cont.) [facility] Comment on above: Result Comment: Aver age GFR for 40-49 years old: 99 mL/min/1.73sq m Chronic Kidney Disease: <60 mL/min/1.73sq m Kidney failure: <15 mL/min/1.73sq m eGFR calculated using average adult body mass. Additional eGFR calculator available at: http://www.HealthStream.[employer]Trove/multiple_crcl_2012.htm Performed By: #### C DP, IPF, BMP #### [employer] [address] [place] [address] Social Services Coordinator: Brandan Ugalde MD Anion gap [Moles/Vol] 7 mmol/L Low -17 [facility] Comment on above: Performed By: #### C DP, IPF, BMP #### [facility] [address] [place] [address] Social Services Coordinator: Brandan Ugalde MD Calcium [Mass/Vol] 8.0 mg/dL Low 8.6-10.4 [facility] Comment on above: Performed By: #### C DP, IPF, BMP #### [facility] [address] [place] [address] Social Services Coordinator: Brandan Ugalde MD Chloride [Moles/Vol] 113 mmol/L High 98-107 [facility] Comment on above: Performed By: #### C DP, IPF, BMP #### [facility] [address] [place] [address] Social Services Coordinator: Brandan Ugalde MD CO2 [Moles/Vol] 13 mmol/L Low 20-31 [facility] Comment on above: Performed By: #### C DP, IPF, BMP #### [facility] [employer] [address] [place] [address] Social Services Coordinator: Brandan Ugalde MD Creatinine [Mass/Vol] 2.39 mg/dL High 0.50-0.90 [facility] Comment on above: Performed By: #### C DP, IPF, BMP #### [address] [address] Social Services Coordinator: Brandan Ugalde MD GFR, Amer 27 mL/min Low >60 [facility] Comment on above: Performed By: #### C DP, IPF, BMP #### [facility] [address] [place] [address] Social Services Coordinator: Brandan Ugalde MD GFR,non Amer 22 mL/min Low >60 [facility] Comment on above: Performed By: #### C DP, IPF, BMP #### [facility] [employer] [address] [place] [address] Social Services Coordinator: Brandan Ugalde MD Glucose [Mass/Vol] 127 mg/dL High 70-99 [facility] Comment on above: Performed By: #### C DP, IPF, BMP #### [facility] [address] [place] [address], [place] [address] Social Services Coordinator: Brandan Ugalde MD Potassium [Moles/Vol] 3.7 mmol/L Normal 3.7-5.3 [facility] Comment on above: Result Comment: SPEC IMEN SLIGHTLY HEMOLYZED, RESULTS MAY BE ADVERSELY AFFECTED. Performed By: #### C DP, IPF, BMP #### [facility] [employer] [address] [place] [address] Social Services Coordinator: Brandan Ugalde MD Sodium [Moles/Vol] 133 mmol/L Low 135-144 [facility] Comment on above: Performed By: #### C DP, IPF, BMP #### [facility] [employer] [address] [place] [address] 31353 Social Services Coordinator: Brandan Ugalde MD Urea nitrogen [Mass/Vol] 32 mg/dL High 6-20 [facility] Comment on above: Performed By: #### C DP, IPF, BMP #### [facility] [address] [place] [address] 17639 Social Services Coordinator: Brandan Ugalde MD BUN/CRE Ratio NOT REPORTED Normal 920 [facility] Comment on above: Performed By: #### C DP, IPF, BMP #### [facility] [employer] [address] [place] [address] 08367 Social Services Coordinator: Brandan Ugalde MD Staging: NOT REPORTED Normal [facility] Comment on above: Performed By: #### C DP, IPF, BMP #### [facility] [employer] [address] [place] [address] 57155 Social Services Coordinator: Brandan Ugalde MD (cont.) Normal [facility] Comment on above: Result Comment: Aver age GFR for 40-49 years old: 99 mL/min/1.73sq m Chronic Kidney Disease: <60 mL/min/1.73sq m Kidney failure: <15 mL/min/1.73sq m eGFR calculated using average adult body mass. Additional eGFR calculator available at: http://www.HealthStream.BioTrove/multiple_crcl_2012.htm Performed By: #### C DP, IPF, BMP #### [facility] [employer] [address] [place] [address] 60768 Social Services Coordinator: Brandan Ugalde MD Anion gap [Moles/Vol] 6 mmol/L Low 9-17 [facility] Comment on above: Performed By: #### C DP, IPF, BMP #### [facility] [employer] [address] [place] [address] 85221 Social Services Coordinator: Brandan Ugalde MD Calcium [Mass/Vol] 8.5 mg/dL Low 8.6-10.4 [facility] Comment on above: Performed By: #### C DP, IPF, BMP #### [facility] [employer] [address] [place] [address] 75535 Social Services Coordinator: Brandan Ugalde MD Chloride [Moles/Vol] 110 mmol/L High 98-107 [facility] Comment on above: Performed By: #### C DP, IPF, BMP #### [facility] [employer] [address] [place] [address] 96004 Social Services Coordinator: Brandan Ugalde MD CO2 [Moles/Vol] 15 mmol/L Low 20-31 [facility] Comment on above: Performed By: #### C DP, IPF, BMP #### [facility] [address] [place] [address] 82060 Social Services Coordinator: Brandan Ugalde MD Creatinine [Mass/Vol] 2.24 mg/dL High 0.50-0.90 [facility] Comment on above: Performed By: #### C DP, IPF, BMP #### [facility] [address] [place] [address] 84150 Social Services Coordinator: Brandan Ugalde MD GFR, Amer 29 mL/min Low >60 [facility] Comment on above: Performed By: #### C DP, IPF, BMP #### [facility] [place] [address] Social Services Coordinator: Brandan Ugalde MD GFR,non Amer 24 mL/min Low >60 [facility] Comment on above: Performed By: #### C ISABELLA IPF, BMP #### [facility] [address] [place] [address] 36448 Social Services Coordinator: Brandan Ugalde MD Glucose [Mass/Vol] 156 mg/dL High 70-99 [facility] Comment on above: Performed By: #### C ISABELLA IPF, BMP #### [employer] [address] [place] [address] 75620 Social Services Coordinator: Brandan Ugalde MD Potassium [Moles/Vol] 3.4 mmol/L Low 3.7-5.3 [facility] Comment on above: Performed By: #### C ISABELLA IPF, BMP #### [employer] [address] [place] [address] 15147 Social Services Coordinator: Brandan Ugalde MD Sodium [Moles/Vol] 131 mmol/L Low 135-144 [facility] Comment on above: Performed By: #### C ISABELLA IPF, BMP #### [facility] [employer] [address] [place] [address] 78293 Social Services Coordinator: Brandan Ugalde MD Urea nitrogen [Mass/Vol] 32 mg/dL High 6-20 [facility] Comment on above: Performed By: #### C ISABELLA IPF, BMP #### [employer] [address] [place] [address] 56117 Social Services Coordinator: Brandan Ugalde MD Blood Gas, Venouson 09-29-19 22 Josh Test NOT REPORTED [facility] Carboxyhemoglobin 1.2 % 0 - 5 % [facility] Comment on above: Reference Range: Non-Smokers 0-2% Average Smoker 2-4% Heavy Smoker <10% FIO2 INFORMATION NOT PROVIDED [facility] [employer] HCO3 (Bld) [Moles/Vol] 15.2 mmol/L Low 24 - 30 mmol/L [facility] Interpretation and review of laboratory results Abnormal [facility] Methemoglobin NOT REPORTED 0.0 - 1.5 % [facility] alth Mode NOT REPORTED [facility] Negative Base Excess, Earnest 10.6 mmol/L High 0.0 - 2.0 mmol/L [facility] NOTIFICATION NOT REPORTED [facility] th NOTIFICATION TIME NOT REPORTED [facility] O2 Device/Flow/% NOT REPORTED [facility] Oxygen saturation in Blood 80.9 % 60.0 - 85.0 % [facility] Oxyhemoglobin NOT REPORTED 95.0 - 98.0 % [facility] pCO2, Earnest 34.9 Low [facility] pCO2, Earnest, Temp Adj NOT REPORTED [facility] Peep/Cpap NOT REPORTED [facility] pH, Earnest 7.261 Low [facility] pH, Earnest, Temp Adj NOT REPORTED [facility] pO2, Earnest 39.5 [facility] pO2, Earnest, Temp Adj NOT REPORTED [facility] Positive Base Excess, Earnest NOT REPORTED 0.0 - 2.0 mmol/L [facility] PSV NOT REPORTED [facility] Pt Temp 37.0 [facility] Pt. Position NOT REPORTED [facility] Respiratory Rate NOT REPORTED [facility] Sample Site NOT REPORTED [facility] h Set Rate NOT REPORTED [facility] Text for Respiratory NOT REPORTED [facility] Total Hb NOT REPORTED 12.0 - 16.0 g/dl [facility] Total Rate NOT REPORTED [facility] [place] NOT REPORTED [facility] CBC auto differentialon 09-05 Absolute Eos # <0.03 [facility] th Absolute Immature Granulocyte 0.07 [facility] Absolute Lymph # 1.85 [facility]th Absolute Fountain # 0.79 [facility] lt Basophils (Bld) [#/Vol] 10*3/uL [facility] Basophils/100 WBC (Bld) 0 % 0 - 2 % [facility] Differential Type NOT REPORTED [facility] [employer] Eosinophils/100 WBC (Bld) 0 % Low 1 - 4 % [facility] Hematocrit (Bld) [Volume fraction] 34.1 % Low 36.3 - 47.1 % [employer] [facility] Hemoglobin.gastroin testinal spec 1 Ql (Stl) 10.8 g/dL Low 11.9 - 15.1 g/dL [facility] Immature granulocytes/100 WBC (Bld) 1 % High [facility] Interpretation and review of laboratory results Abnormal [facility] Lymphocytes/100 WBC (Bld) 21 % Low 24 - 43 % [facility] MCH (RBC) [Entitic mass] 28.1 pg 25.2 - 33.5 pg [facility] MCHC (RBC) [Mass/Vol] 31.7 g/dL 28.4 - 34.8 g/dL [facility] MCV (RBC) [Entitic vol] 88.6 fL 82.6 - 102.9 fL [facility] Monocytes/100 WBC (Bld) 9 % 3 - 12 % [facility] NRBC Automated 0.0 0.0 per 100 WBC [facility] Platelet distribution width (Bld) [Ratio] 14.0 % 11.8 - 14.4 % [facility] Platelet Estimate NOT REPORTED [facility] Platelet mean volume (Bld) [Entitic vol] 9.0 fL 8.1 - 13.5 fL [facility] Platelets (Bld) [#/Vol] 107 10*3/uL Low [facility] RBC (Bld) [#/Vol] 3.85 10*6/uL Low 3.95 - 5.11 m/uL [facility] RBC (Bld) [#/Vol] NOT REPORTED [facility] Segmented neutrophils/100 WBC (Bld) 69 % High 36 - 65 % [facility] Segs Absolute 6.03 [facility] W[facility] (Bld[facility] [#/Vol] 8.8 10*3/uL [facility] WBC (Bld) [#/Vol] NOT REPORTED [facility] CBC with Diffon 09-29-2021 Abs. Basophil <0.03 Normal 0.00-0.20 [facility] Comment on above: Performed By: #### C DP, IPF, BMP #### [employer] [address] [place], [place] [phone] Social Services Coordinator: Brandan Ugalde MD Abs. Eosinophil <0.03 Normal 0.00-0.44 [facility] Comment on above: Performed By: #### C DP, IPF, BMP #### [employer] [address] [place], [place] [id number] Social Services Coordinator: Brandan Ugalde MD Abs.Imm.Granulocyte 0.07 k/uL Normal 0.00-0.30 [facility] Comment on above: Performed By: #### C DP IPF, BMP #### [facility] [employer] [address] [place] [address] 88182 Social Services Coordinator: Brandan Ugalde MD Abs.Neutrophil (Seg) 6.03 k/uL Normal 1.50-8.10 [facility] Comment on above: Performed By: #### C DP, IPF, BMP #### [facility] [employer] [address] [place] [address] 56697 Social Services Coordinator: Brandan Ugalde MD Basophils/100 WBC (Bld) 0 % Normal 0-2 [facility] Comment on above: Performed By: #### C ISABELLA IPF, BMP #### [facility] [employer] [address] [place] [address] 08203 Social Services Coordinator: Brandan Ugalde MD Eosinophils/100 WBC (Bld) 0 % Low 1-4 [facility] Comment on above: Performed By: #### C ISABELLA IPF, BMP #### [facility] [employer] [address] [place] [address] 87594 Social Services Coordinator: Brandan Ugalde MD Erythrocyte distribution width (RBC) [Ratio] 14.0 % Normal 11.8-14.4 [facility] Comment on above: Performed By: #### C ISABELLA IPF, BMP #### [facility] [employer] [address] [place] [address] 38209 Social Services Coordinator: Brandan Ugalde MD Hematocrit (Bld) [Volume fraction] 34.1 % Low 36.3-47.1 [facility] Comment on above: Performed By: #### C DP IPF, BMP #### [facility] [employer] [address] [place] [address] 50755 Social Services Coordinator: Brandan Ugalde MD Hemoglobin (Bld) [Mass/Vol] 10.8 g/dL Low 11.9-15.1 [facility] Comment on above: Performed By: #### C DP, IPF, BMP #### [address] [address] Social Services Coordinator: Brandan Ugalde MD Immature granulocytes/100 WBC (Bld) 1 % High 0 [facility] Comment on above: Performed By: #### C DP, IPF, BMP #### [address] [address] Social Services Coordinator: Brandan Ugalde MD Lymphocytes (Bld) [#/Vol] 1.85 10*3/uL Normal 1.10-3.70 [facility] Comment on above: Performed By: #### C DP, IPF, BMP #### [address] [address] Social Services Coordinator: Brandan Ugalde MD Lymphocytes/100 WBC (Bld) 21 % Low 24-43 [facility] Comment on above: Performed By: #### C DP, IPF, BMP #### [address] [address] Social Services Coordinator: Brandan Ugalde MD MCH (RBC) [Entitic mass] 28.1 pg Normal 25.2-33.5 [facility] Comment on above: Performed By: #### C DP, IPF, BMP #### [facility] [employer] [address] [place] [address] 28338 Social Services Coordinator: Brandan Ugalde MD MCHC (RBC) [Mass/Vol] 31.7 g/dL Normal 28.4-34.8 [facility] Comment on above: Performed By: #### C DP, IPF, BMP #### [facility] [employer] [address] [place] [address] 88259 Social Services Coordinator: Brandan Ugalde MD MCV (RBC) [Entitic vol] 88.6 fL Normal 82.6-102.9 [facility] Comment on above: Performed By: #### C DP, IPF, BMP #### [address] [address] Social Services Coordinator: Brandan Ugalde MD Monocytes (Bld) [#/Vol] 0.79 10*3/uL Normal 0.10-1.20 [facility] Comment on above: Performed By: #### C DP, IPF, BMP #### [address] [address] Social Services Coordinator: Brandan Ugalde MD Monocytes/100 WBC (Bld) 9 % Normal 3-12 [facility] Comment on above: Performed By: #### C DP, IPF, BMP #### [address] [address] Social Services Coordinator: Brandan Ugalde MD Neutrophil (Seg) 69 % High 36-65 [facility] Comment on above: Performed By: #### C DP, IPF, BMP #### [address] [address] Social Services Coordinator: Brandan Ugalde MD NRBC Automated 0.0 per 100 WBC Normal 0.0 [facility] Comment on above: Performed By: #### C DP, IPF, BMP #### [address] [address] Social Services Coordinator: Brandan Ugalde MD Platelet mean volume (Bld) [Entitic vol] 9.0 fL Normal 8.1-13.5 [facility] Comment on above: Performed By: #### C DP, IPF, BMP #### [address] [address] Social Services Coordinator: Brandan Ugalde MD Platelets (Bld) [#/Vol] 107 10*3/uL Low 138-453 [facility] Comment on above: Performed By: #### C DP, IPF, BMP #### [address] [address] Social Services Coordinator: Brandan Ugalde MD RBC (Bld) [#/Vol] 3.85 10*6/uL Low 3.95-5.11 [facility] Comment on above: Performed By: #### C DP, IPF, BMP #### [facility] [employer] [address] [place] [address] 93056 Social Services Coordinator: Brandan Ugalde MD WBC (Bld) [#/Vol] 8.8 10*3/uL Normal 3.5-11.3 [facility] Comment on above: Performed By: #### C DP, IPF, BMP #### [facility] [address] [place] [address] 77513 Social Services Coordinator: Brandan Ugalde MD Auto Diff Performed NOT REPORTED Normal [facility] Comment on above: Performed By: #### C DP, IPF, BMP #### [facility] [address] [place] [address] 83015 Social Services Coordinator: Brandan Ugalde MD Platelet Comment NOT REPORTED Normal [facility] Comment on above: Performed By: #### C DP, IPF, BMP #### [facility] [address] [place] [address] 77507 Social Services Coordinator: Brandan Ugalde MD RBC morphology finding Nom (Bld) NOT REPORTED Normal [facility] Comment on above: Performed By: #### C DP, IPF, BMP #### [facility] [address] [place] [address] 15940 Social Services Coordinator: Brandan Ugalde MD WBC Morphology NOT REPORTED Normal [facility] Comment on above: Performed By: #### C DP, IPF, BMP #### [facility] [address] [place] [address] 41945 Social Services Coordinator: Brandan Ugalde MD MRSA DNA Probe, Nasalon 09-05 MRSA, DNA, Nasal Negative NEGATIVE [facility] Comment on above: NEGATIVE: MRSA DNA n ot detected by nucleic acid amplification. Results should be used as an adjunct to nosocomial control efforts to identify patients needing enhanced precautions. The test is not intended to identify patients with staphylococcal infections. Results should not be used to guide or monitor treatment for MRSA infections. Specimen Description .NASAL SWAB [facility] MRSA, DNA, Nasalon MRSA, DNA, Nasal Negative Normal NEG [facility] Comment on above: Result Comment: NEGA TIVE: MRSA DNA not detected by nucleic acid amplification. Results should be used as an adjunct to nosocomial control efforts to identify patients needing enhanced precautions. The test is not intended to identify patients with staphylococcal infections. Results should not be used to guide or monitor treatment for MRSA infections. Performed By: #### C EMILIO MASON, BMP #### [facility] [address] [place] [address] 84015 Social Services Coordinator: Brandan Ugalde MD Magnesiumon 09-29-2021 Magnesium [Mass/Vol] 1.7 mg/dL Normal 1.6-2.6 [facility] Comment on above: Performed By: #### C EMILIO MASON, BMP #### [employer] [address] [place] [address] 05925 Social Services Coordinator: Brandan Ugalde MD Magnesium [Mass/Vol] 1.7 mg/dL 1.6 - 2.6 mg/dL [facility] Magnesium [Mass/Vol] 1.8 mg/dL Normal 1.6-2.6 [facility] Comment on above: Performed By: #### C EMILIO MASON, BMP #### [employer] [address] [place] [address] 76105 Social Services Coordinator: Brandan Ugalde MD Magnesium [Mass/Vol] 1.8 mg/dL 1.6 - 2.6 mg/dL [facility] Magnesium [Mass/Vol] 1.9 mg/dL Normal 1.6-2.6 [facility] Comment on above: Performed By: #### C EMILIO MASON, BMP #### [employer] [address] [place] [address] 11427 Social Services Coordinator: Brandan Ugalde MD Magnesium [Mass/Vol] 1.9 mg/dL 1.6 - 2.6 mg/dL [facility] Magnesium [Mass/Vol] 1.8 mg/dL Normal 1.6-2.6 [facility] Comment on above: Performed By: #### C EMILIO MASON, DACIA #### [employer] [address] [place], [place] [phone] Social Services Coordinator: Brandan Ugalde MD No Panel Informationon 09-29 [facility] Interpretation and review of laboratory results Abnormal [facility] POC Glucose Fingerstickon Glucose [Mass/Vol] 159 mg/dL High 65 - 105 mg/dL [facility] [employer] Interpretation and review of laboratory results Abnormal [facility] Glucose [Mass/Vol] 166 mg/dL High 65 - 105 mg/dL [facility] Interpretation and review of laboratory results Abnormal [facility] Glucose [Mass/Vol] 227 mg/dL High 65 - 105 mg/dL [facility] Interpretation and review of laboratory results Abnormal [facility] Glucose [Mass/Vol] 290 mg/dL High 65 - 105 mg/dL [facility] Interpretation and review of laboratory results Abnormal [facility] Glucose [Mass/Vol] 269 mg/dL High 65 - 105 mg/dL [facility] Interpretation and review of laboratory results Abnormal [facility] Glucose [Mass/Vol] 137 mg/dL High 65 - 105 mg/dL [facility] Interpretation and review of laboratory results Abnormal [facility] Phosphoruson 09-29-2021 Phosphate [Mass/Vol] 3.1 mg/dL 2.6 - 4.5 mg/dL [facility] Phosphate [Mass/Vol] 3.0 mg/dL 2.6 - 4.5 mg/dL [facility] Phosphate [Mass/Vol] 1.9 mg/dL Low 2.6 - 4.5 mg/dL [facility] Phosphorus, Inorg.on 022 Phosphorus, Inorg. 3.1 mg/dL Normal 2.6-4.5 [facility] Comment on above: Performed By: #### C ISABELLA, EMILIO, BMP #### [employer] [address] [place] [address] Social Services Coordinator: Brandan Ugalde MD Phosphorus, Inorg. 3.0 mg/dL Normal 2.6-4.5 [facility] Comment on above: Performed By: #### C DP, IPF, BMP #### [facility] [address] [place] [address] Social Services Coordinator: Brandan Ugalde MD Phosphorus, Inorg. 1.9 mg/dL Low 2.6-4.5 [facility] Comment on above: Performed By: #### C DP, IPF, BMP #### [facility] [address] [place] [address] Social Services Coordinator: Brandan Ugalde MD Phosphorus, Inorg. 1.9 mg/dL Low 2.6-4.5 [facility] Comment on above: Performed By: #### C DP, IPF, BMP #### [employer] [address] [place] [address] 23914 Social Services Coordinator: Brandan Ugalde MD SPECIMEN REJECTIONon - NOT REPORTED [facility] Ordered Test [facility] Reason for Rejection Unable to perform testing: Specimen clotted. [facility] Specimen source Nom (Unsp spec) .BLOOD [facility] Specimen Rejectionon 022 Reason for rejection Unable to perform testing: Specimen clotted. Normal [facility] Comment on above: Performed By: #### C DP, IPF, BMP #### [facility] [address] [place] [address] Social Services Coordinator: Brandan Ugalde MD Source of sample .BLOOD Normal [facility] Comment on above: Performed By: #### C DP, IPF, BMP #### [facility] [address] [place] [address] Social Services Coordinator: Brandan Ugalde MD Test ordered [facility] Comment on above: Performed By: #### C DP, IPF, BMP #### [facility] [employer] [address] [place] [address] Social Services Coordinator: Brandan Ugalde MD ----- NOT REPORTED Normal [facility] Comment on above: Performed By: #### C DP, IPF, BMP #### [facility] [address] [place] [address] 7[address] Social Services Coordinator: Brandan Ugalde MD Venous Blood Gaseson 022 Body Temp. 37.0 Normal [facility] Comment on above: Performed By: #### C DP, IPF, BMP #### [facility] [address] [place] [address] 09053 Social Services Coordinator: Brandan Ugalde MD Carboxy Hgb 1.2 % Normal 0-5 [facility] Comment on above: Result Comment: Reference Range: Non-Smokers 0-2% Average Smoker 2-4% Heavy Smoker <10% Performed By: #### C DP, IPF, BMP #### [facility] [address] [place] [address] 24664 Social Services Coordinator: Brandan Ugalde MD FIO2 INFORMATION NOT PROVIDED Normal [facility] Comment on above: Performed By: #### C DP, IPF, BMP #### [employer] [address] [place] [address] 11712 Social Services Coordinator: Brandan Ugalde MD HCO3 (Bld) [Moles/Vol] 15.2 mmol/L Low 24-30 [facility] Comment on above: Performed By: #### C DP, IPF, BMP #### [facility] [address] [place] [address] 89981 Social Services Coordinator: Brandan Ugalde MD Negative Base Excess 10.6 mmol/L High 0.0-2.0 [facility] Comment on above: Performed By: #### C DP, IPF, BMP #### [employer] [address] [place] [address]408 Social Services Coordinator: Brandan Ugalde MD Oxygen (Bld) [Partial pressure] 39.5 mm[Hg] Normal 30-50 [facility] Comment on above: Performed By: #### C DP, IPF, BMP #### [facility] [employer] [address] [place] [address]652 Social Services Coordinator: Brandan Ugalde MD Oxygen saturation in Blood 80.9 % Normal 60.0-85.0 [facility] Comment on above: Performed By: #### C DP, IPF, BMP #### [facility] [employer] [address] [place] [address] Social Services Coordinator: Brandan Ugalde MD pCO2 34.9 Low 39-55 [facility] Comment on above: Performed By: #### C DP, IPF, BMP #### [facility] [employer] [address] [place] [address]017 Social Services Coordinator: Brandan Ugalde MD pH (Bld) 7.261 [pH] Low 7.320-7.420 [facility] Comment on above: Performed By: #### C DP, IPF, BMP #### [facility] [employer] [address] [place] [address] 81084 Social Services Coordinator: Brandan Ugalde MD Josh Test NOT REPORTED Normal [facility] Comment on above: Performed By: #### C DP, IPF, BMP #### [facility] [address] [place] [address] 88515 Social Services Coordinator: Brandan Ugalde MD Methemoglobin NOT REPORTED Normal 0.0-1.5 [facility] Comment on above: Performed By: #### C DP, IPF, BMP #### [facility] [employer] [address] [place] [address] 49223 Social Services Coordinator: Brandan Ugalde MD Mode NOT REPORTED Normal [facility] Comment on above: Performed By: #### C DP, IPF, BMP #### [facility] [address] [place] [address] 22402 Social Services Coordinator: Brandan Ugalde MD Notification Time NOT REPORTED Normal [facility] Comment on above: Performed By: #### C DP, IPF, BMP #### [facility] [address] [place] [address] 93401 Social Services Coordinator: Brandan Ugalde MD Notification: NOT REPORTED Normal [facility] Comment on above: Performed By: #### C DP, IPF, BMP #### [facility] [address] [place] [address] 63901 Social Services Coordinator: Brandan Ugalde MD O2 Device/Flow/% NOT REPORTED Normal [facility] Comment on above: Performed By: #### C DP, IPF, BMP #### [facility] [address] [place] [address] 70835 Social Services Coordinator: Brandan Ugalde MD Oxyhemoglobin NOT REPORTED Normal 95.0-98.0 [facility] Comment on above: Performed By: #### C DP, IPF, BMP #### [facility] [address] [place] [address] 93367 Social Services Coordinator: Brandan Ugalde MD Pco2 Adj'd for Temp. NOT REPORTED Normal 39-55 [facility] Comment on above: Performed By: #### C DP, IPF, BMP #### [facility] [address] [place] [address] 01765 Social Services Coordinator: Brandan Ugalde MD PEEP/CPAP NOT REPORTED Normal [facility] Comment on above: Performed By: #### C DP, IPF, BMP #### [facility] [address] [place] [address] 61078 Social Services Coordinator: Brandan Ugalde MD pH Adjst'd for Temp. NOT REPORTED Normal 7.320-7.420 [facility] Comment on above: Performed By: #### C DP, IPF, BMP #### [facility] [address] [place] [address] [phone] Social Services Coordinator: Brandan Ugalde MD pO2 Adj'd for Temp. NOT REPORTED Normal 30-50 [facility] Comment on above: Performed By: #### C DP, IPF, BMP #### [facility] [address] [place] [address] 74673 Social Services Coordinator: Brandna Ugalde MD Positive Base Excess NOT REPORTED Normal 0.0-2.0 [facility] Comment on above: Performed By: #### C DP, IPF, BMP #### [facility] [employer] [address] [place] [address] 01563 Social Services Coordinator: Brandan Ugalde MD PSV NOT REPORTED Normal [facility] Comment on above: Performed By: #### C DP, IPF, BMP #### [facility] [employer] [address] [place] [address] 04775 Social Services Coordinator: Brandan Ugalde MD Pt. Position NOT REPORTED Normal [facility] Comment on above: Performed By: #### C DP, IPF, BMP #### [facility] [address] [place] [address] 83005 Social Services Coordinator: Brandan Ugalde MD Respiratory Rate NOT REPORTED Normal [facility] Comment on above: Performed By: #### C DP, IPF, BMP #### [facility] [employer] [address] [place] [address] 22127 Social Services Coordinator: Brandan Ugalde MD Set Rate NOT REPORTED Normal [facility] Comment on above: Performed By: #### C DP, IPF, BMP #### [facility] [employer] [address] [place] [address] 19730 Social Services Coordinator: Brandan Ugalde MD Site Drawn NOT REPORTED Normal [facility] Comment on above: Performed By: #### C DP, IPF, BMP #### [facility] [employer] [address] [place] [address] 47561 Social Services Coordinator: Brandan Ugalde MD Text for Respiratory NOT REPORTED Normal [facility] Comment on above: Performed By: #### C DP, IPF, BMP #### [employer] [facility] [place] [address] Social Services Coordinator: Brandan Ugalde MD Total Hb NOT REPORTED Normal 12.0-16.0 [facility] Comment on above: Performed By: #### C DP, IPF, BMP #### [employer] [facility] [address] [place] [address] [phone] Social Services Coordinator: Brandan Ugalde MD Total Rate NOT REPORTED Normal [facility] Comment on above: Performed By: #### C DP, IPF, BMP #### [employer] [address] [place] [address] [phone] Social Services Coordinator: Brandan Ugalde MD [place] NOT REPORTED Normal [facility] Comment on above: Performed By: #### C DP, IPF, BMP #### [employer] [address] [place] [address] 68882 Social Services Coordinator: Brandan Ugalde MD BASIC METABOLIC PANELon 09-05 Anion gap [Moles/Vol] 13 mmol/L 9 - 17 mmol/L [facility] [employer] Calcium [Mass/Vol] 8.7 mg/dL 8.6 - 10.4 mg/dL [facility] Chloride [Moles/Vol] 115 mmol/L High 98 - 107 mmol/L [employer] CO2 [Moles/Vol] 14 mmol/L Low 20 - 31 mmol/L [facility] Creatinine [Mass/Vol] 2.15 mg/dL High 0.50 - 0.90 mg/dL [employer] GFR 30 mL/min Low >60 [employer] GFR Non- 25 mL/min Low >60 [employer] GFR/1.73 sq M.predicted MDRD (S/P/Bld) [Vol rate/Area] [facility] [employer] Comment on above: Average GFR for 40-4 9 years old: 99 mL/min/1.73sq m Chronic Kidney Disease: <60 mL/min/1.73sq m Kidney failure: <15 mL/min/1.73sq m eGFR calculated using average adult body mass. Additional eGFR calculator available at: http://www.HealthStream.BioTrove/multiple_crcl_2012.htm GFR/1.73 sq M.predicted MDRD (S/P/Bld) [Vol rate/Area] NOT REPORTED [facility] Glucose [Mass/Vol] 160 mg/dL High 70 - 99 mg/dL [facility] Interpretation and review of laboratory results Abnormal [facility] Potassium [Moles/Vol] 2.9 mmol/L Critically low 3.7 - 5.3 mmol/L [employer] [facility] Sodium [Moles/Vol] 142 mmol/L 135 - 144 mmol/L [facility] [employer] Urea nitrogen (BldV) [Mass/Vol] 33 mg/dL High 6 - 20 mg/dL [facility] Urea nitrogen/Creatinine (Bld) [Mass ratio] NOT REPORTED [facility] [employer] BLOOD GAS, VENOUSon 09-28-19 Josh Test NOT REPORTED [facility] Carboxyhemoglobin 2.2 % 0 - 5 % [facility] Comment on above: Reference Range: Non-Smokers 0-2% Average Smoker 2-4% Heavy Smoker <10% FIO2 UNKNOWN [facility] HCO3 (Bld) [Moles/Vol] 17.3 mmol/L Low 24 - 30 mmol/L [facility] Interpretation and review of laboratory results Abnormal [employer] Methemoglobin NOT REPORTED 0.0 - 1.5 % [facility] Mode NOT REPORTED [facility] Negative Base Excess, Earnest 8.2 mmol/L High 0.0 - 2.0 mmol/L [facility] NOTIFICATION NOT REPORTED [facility] th NOTIFICATION TIME NOT REPORTED [facility] O2 Device/Flow/% NOT REPORTED [facility] Oxygen saturation in Blood 80.7 % 60.0 - 85.0 % [employer] Oxyhemoglobin NOT REPORTED 95.0 - 98.0 % [facility] pCO2, Earnest 37.[address] [facility] pCO2, Earnest, Temp Adj NOT REPORTED [facility] [employer] Peep/Cpap NOT REPORTED [facility] pH, Earnest 7.290 Low [facility] pH, Earnest, Temp Adj NOT REPORTED [facility] [employer] pO2, Earnest 34.0 [facility] pO2, Earnest, Temp Adj NOT REPORTED [facility] Positive Base Excess, Earnest NOT REPORTED 0.0 - 2.0 mmol/L [facility] PSV NOT REPORTED [employer] Pt Temp 37.0 [employer] Pt. Position NOT REPORTED [facility] th Respiratory Rate NOT REPORTED [facility] [employer] Sample Site NOT REPORTED [facility] h Set Rate NOT REPORTED [facility] Text for Respiratory [facility] RE[facility]ED [facility] Total Hb NOT REPORTED 12.0 - 16.0 g/dl [facility] Total Rate NOT REPORTED [facility] [employer] [place] NOT REPORTED [facility] [employer] [facility] Basic Metabolic Panelon 09-05 Anion gap [Moles/Vol] 6 mmol/L Low 9 - 17 mmol/L [facility] Calcium [Mass/Vol] 8.5 mg/dL Low 8.6 - 10.4 mg/dL [employer] Chloride [Moles/Vol] 110 mmol/L High 98 - 107 mmol/L [employer] CO2 [Moles/Vol] 15 mmol/L Low 20 - 31 mmol/L [employer] Creatinine [Mass/Vol] 2.24 mg/dL High 0.50 - 0.90 mg/dL [employer] GFR 29 mL/min Low >60 [employer] GFR Non- 24 mL/min Low >60 [employer] GFR/1.73 sq M.predicted MDRD (S/P/Bld) [Vol rate/Area] [facility] Comment on above: Average GFR for 40-4 9 years old: 99 mL/min/1.73sq m Chronic Kidney Disease: <60 mL/min/1.73sq m Kidney failure: <15 mL/min/1.73sq m eGFR calculated using average adult body mass. Additional eGFR calculator available at: http://www.HealthStream.BioTrove/multiple_crcl_2012.htm GFR/1.73 sq M.predicted MDRD (S/P/Bld) [Vol rate/Area] NOT REPORTED [facility] Glucose [Mass/Vol] 156 mg/dL High 70 - 99 mg/dL [facility] [employer] Potassium [Moles/Vol] 3.4 mmol/L Low 3.7 - 5.3 mmol/L [employer] Sodium [Moles/Vol] 131 mmol/L Low 135 - 144 mmol/L [facility] Urea nitrogen (BldV) [Mass/Vol] 32 mg/dL High 6 - 20 mg/dL [facility] Urea nitrogen/Creatinine (Bld) [Mass ratio] NOT REPORTED [facility] Anion gap [Moles/Vol] 10 mmol/L 9 - 17 mmol/L [employer] Calcium [Mass/Vol] 8.2 mg/dL Low 8.6 - 10.4 mg/dL [facility] [employer] Chloride [Moles/Vol] 113 mmol/L High 98 - 107 mmol/L [employer] CO2 [Moles/Vol] 16 mmol/L Low 20 - 31 mmol/L [facility] [employer] Creatinine [Mass/Vol] 2.2 mg/dL High 0.50 - 0.90 mg/dL [facility] [employer] GFR 30 mL/min Low >60 [employer] GFR Non- 24 mL/min Low >60 [employer] GFR/1.73 sq M.predicted MDRD (S/P/Bld) [Vol rate/Area] [facility] [employer] Comment on above: Average GFR for 40-4 9 years old: 99 mL/min/1.73sq m Chronic Kidney Disease: <60 mL/min/1.73sq m Kidney failure: <15 mL/min/1.73sq m eGFR calculated using average adult body mass. Additional eGFR calculator available at: http://www.[employer]/multiple_crcl_2012.htm GFR/1.73 sq M.predicted MDRD (S/P/Bld) [Vol rate/Area] NOT REPORTED [facility] [employer] Glucose [Mass/Vol] 231 mg/dL High 70 - 99 mg/dL [facility] [employer] Potassium [Moles/Vol] 4.5 mmol/L 3.7 - 5.3 mmol/L [facility] Comment on above: SPECIMEN SLIGHTLY HE MOLYZED, RESULTS MAY BE ADVERSELY AFFECTED. Sodium [Moles/Vol] 139 mmol/L 135 - 144 mmol/L [employer] Urea nitrogen (BldV) [Mass/Vol] 33 mg/dL High 6 - 20 mg/dL [facility] [employer] Urea nitrogen/Creatinine (Bld) [Mass ratio] NOT REPORTED [facility] [employer] Anion gap [Moles/Vol] 17 mmol/L 9 - 17 mmol/L [employer] Calcium [Mass/Vol] 8.7 mg/dL 8.6 - 10.4 mg/dL [employer] Chloride [Moles/Vol] 116 mmol/L High 98 - 107 mmol/L [employer] CO2 [Moles/Vol] 12 mmol/L Low 20 - 31 mmol/L [facility] [employer] Creatinine [Mass/Vol] 2.22 mg/dL High 0.50 - 0.90 mg/dL [facility] [employer] GFR 29 mL/min Low >60 [facility] [employer] GFR Non- 24 mL/min Low >60 [facility] [employer] GFR/1.73 sq M.predicted MDRD (S/P/Bld) [Vol rate/Area] [facility] [employer] Comment on above: Average GFR for 40-4 9 years old: 99 mL/min/1.73sq m Chronic Kidney Disease: <60 mL/min/1.73sq m Kidney failure: <15 mL/min/1.73sq m eGFR calculated using average adult body mass. Additional eGFR calculator available at: http://www.[employer]Tech/multiple_crcl_2012.htm GFR/1.73 sq M.predicted MDRD (S/P/Bld) [Vol rate/Area] NOT REPORTED [facility] Glucose [Mass/Vol] 232 mg/dL High 70 - 99 mg/dL [facility] [employer] Potassium [Moles/Vol] 3.2 mmol/L Low 3.7 - 5.3 mmol/L [facility] [employer] Sodium [Moles/Vol] 145 mmol/L High 135 - 144 mmol/L [facility] [employer] Urea nitrogen (BldV) [Mass/Vol] 35 mg/dL High 6 - 20 mg/dL [facility] [employer] Urea nitrogen/Creatinine (Bld) [Mass ratio] NOT REPORTED [facility] [employer] Basic Metabolic Profon 09-28 BUN/CRE Ratio NOT REPORTED Normal - [facility] Comment on above: Performed By: #### C DP, IPF, BMP #### [employer] [address] [place], [place] [phone] Social Services Coordinator: Brandan Ugalde MD Staging: NOT REPORTED Normal [facility] Comment on above: Performed By: #### C DP IPF, BMP #### [employer] [address] [place], [place] [phone] Social Services Coordinator: Brandan Ugalde MD (cont.) Normal [facility] Comment on above: Result Comment: Aver age GFR for 40-49 years old: 99 mL/min/1.73sq m Chronic Kidney Disease: <60 mL/min/1.73sq m Kidney failure: <15 mL/min/1.73sq m eGFR calculated using average adult body mass. Additional eGFR calculator available at: http://www.HealthStream.BioTrove/multiple_crcl_2012.htm Performed By: #### C ISABELLA IPF, BMP #### [facility] [address] [place] [address] 80740 Social Services Coordinator: Brandan Ugalde MD Anion gap [Moles/Vol] 10 mmol/L Normal 9-17 [facility] Comment on above: Performed By: #### C ISABELLA IPF, BMP #### [facility] [address] [place] [address] 57785 Social Services Coordinator: Brandan Ugalde MD Calcium [Mass/Vol] 8.2 mg/dL Low 8.6-10.4 [facility] Comment on above: Performed By: #### C ISABELLA IPF, BMP #### [facility] [address] [place] [address] 61045 Social Services Coordinator: Brandan Ugalde MD Chloride [Moles/Vol] 113 mmol/L High 98-107 [facility] Comment on above: Performed By: #### C ISABELLA IPF, BMP #### [facility] [address] [place] [address] 59616 Social Services Coordinator: Brandan Ugalde MD CO2 [Moles/Vol] 16 mmol/L Low 20-31 [facility] Comment on above: Performed By: #### C ISABELLA IPF, BMP #### [employer] [address] [place] [address] 22955 Social Services Coordinator: Brandan Ugalde MD Creatinine [Mass/Vol] 2.20 mg/dL High 0.50-0.90 [facility] Comment on above: Performed By: #### C DP IPF, BMP #### [employer] [address] [place] [address] 27711 Social Services Coordinator: Brandan Ugalde MD GFR, Amer 30 mL/min Low >60 [facility] Comment on above: Performed By: #### C EMILIO MASON, BMP #### [facility] [employer] [address] [place] [address] 72738 Social Services Coordinator: Brandan Ugalde MD GFR,non Amer 24 mL/min Low >60 [facility] Comment on above: Performed By: #### C ISABELLA IPF, BMP #### [facility] [employer] [address] [place] [address] 57459 Social Services Coordinator: Brandan Ugalde MD Glucose [Mass/Vol] 231 mg/dL High 70-99 [facility] Comment on above: Performed By: #### C ISABELLA IPF, BMP #### [address] [address] Social Services Coordinator: Brandan Ugalde MD Potassium [Moles/Vol] 4.5 mmol/L Normal 3.7-5.3 [facility] Comment on above: Result Comment: SPEC IMEN SLIGHTLY HEMOLYZED, RESULTS MAY BE ADVERSELY AFFECTED. Performed By: #### C EMILIO MASON, BMP #### [address] [address] Social Services Coordinator: Brandan Ugalde MD Sodium [Moles/Vol] 139 mmol/L Normal 135-144 [facility] Comment on above: Performed By: #### C ISABELLA IPF, BMP #### [facility] [address] [place] [address] 92104 Social Services Coordinator: Brandan Ugalde MD Urea nitrogen [Mass/Vol] 33 mg/dL High 6-20 [facility] Comment on above: Performed By: #### C ISABELLA IPF, BMP #### [facility] [employer] [address] [place] [address] 13888 Social Services Coordinator: Brandan Ugalde MD BUN/CRE Ratio NOT REPORTED Normal 9-20 [facility] Comment on above: Performed By: #### C DP, IPF, BMP #### [facility] [address] [place] [address] 57054 Social Services Coordinator: Brandan Ugalde MD Staging: NOT REPORTED Normal [facility] Comment on above: Performed By: #### C DP, IPF, BMP #### [facility] [address] [place] [address] 70929 Social Services Coordinator: Brandan Ugalde MD (cont.) Normal [facility] Comment on above: Result Comment: Aver age GFR for 40-49 years old: 99 mL/min/1.73sq m Chronic Kidney Disease: <60 mL/min/1.73sq m Kidney failure: <15 mL/min/1.73sq m eGFR calculated using average adult body mass. Additional eGFR calculator available at: http://www.[employer]Tech/multiple_crcl_2012.htm Performed By: #### B MP, MG, MARZENA #### [facility] [employer] [address] [place] [address] 85630 Social Services Coordinator: Brandan Ugalde MD Anion gap [Moles/Vol] 17 mmol/L Normal 9-17 [facility] Comment on above: Performed By: #### B MP, MG, MARZENA #### [facility] [employer] [address] [place] [address] 81094 Social Services Coordinator: Brandan Ugalde MD Calcium [Mass/Vol] 8.7 mg/dL Normal 8.6-10.4 [facility] Comment on above: Performed By: #### B MP, MG, MARZENA #### [facility] [address] [place] [address] 43841 Social Services Coordinator: Brandan Ugalde MD Chloride [Moles/Vol] 116 mmol/L High 98-107 [facility] Comment on above: Performed By: #### B MP, MG, MARZENA #### [facility] [address] [place] [address] 01157 Social Services Coordinator: Brandan Ugalde MD CO2 [Moles/Vol] 12 mmol/L Low 20-31 [facility] Comment on above: Performed By: #### B MP, MG, MARZENA #### [facility] [address] [place] [address] 84412 Social Services Coordinator: Brandan Ugalde MD Creatinine [Mass/Vol] 2.22 mg/dL High 0.50-0.90 [facility] Comment on above: Performed By: #### B MP, MG, MARZENA #### [facility] [address] [place] [address] 25846 Social Services Coordinator: Brandan Ugalde MD GFR, Amer 29 mL/min Low >60 [facility] Comment on above: Performed By: #### B MP, MG, MARZENA #### [facility] [address] [place] [address] 90274 Social Services Coordinator: Brandan Ugalde MD GFR,non Amer 24 mL/min Low >60 [facility] Comment on above: Performed By: #### B MP, MG, MARZENA #### [facility] [address] [place] [address] 25100 Social Services Coordinator: Brandan Ugalde MD Glucose [Mass/Vol] 232 mg/dL High 70-99 [facility] Comment on above: Performed By: #### B MP, MG, MARZENA #### [facility] [address] [place] [address] 96562 Social Services Coordinator: Brandan Ugalde MD Potassium [Moles/Vol] 3.2 mmol/L Low 3.7-5.3 [facility] Comment on above: Performed By: #### B MP, MG, MARZENA #### [facility] [address] [place] [address] 22544 Social Services Coordinator: Brandan Ugalde MD Sodium [Moles/Vol] 145 mmol/L High 135-144 [facility] Comment on above: Performed By: #### B MP, MG, MARZENA #### [facility] [address] [place] [address] Social Services Coordinator: Brandan Ugalde MD Urea nitrogen [Mass/Vol] 35 mg/dL High -20 [facility] Comment on above: Performed By: #### B MP, MG, MARZENA #### [facility] [address] [place] [address] Social Services Coordinator: Brandan Ugalde MD BUN/CRE Ratio NOT REPORTED Normal - [facility] Comment on above: Performed By: #### B MP, MG, MARZENA #### [facility] [address] [place] [address] 02344 Social Services Coordinator: Brandan Ugalde MD Staging: NOT REPORTED Normal [facility] Comment on above: Performed By: #### B MP, MG, MARZENA #### [facility] [address] [place] [address] 63206 Social Services Coordinator: Brandan Ugalde MD (cont.) [facility] Comment on above: Result Comment: Aver age GFR for 40-49 years old: 99 mL/min/1.73sq m Chronic Kidney Disease: <60 mL/min/1.73sq m Kidney failure: <15 mL/min/1.73sq m eGFR calculated using average adult body mass. Additional eGFR calculator available at: http://www.HealthStream.BioTrove/multiple_crcl_2011.htm Performed By: #### C DP, IPF, BMP #### [facility] [address] [place] [address] 83868 Social Services Coordinator: Brandan Ugalde MD Anion gap [Moles/Vol] 13 mmol/L Normal -17 [facility] Comment on above: Performed By: #### C DP, IPF, BMP #### [facility] [address] [place] [address] Social Services Coordinator: Brandan Ugalde MD Calcium [Mass/Vol] 8.7 mg/dL Normal 8.6-10.4 [facility] Comment on above: Performed By: #### C DP, IPF, BMP #### [facility] [employer] [address] [place] [address] 99051 Social Services Coordinator: Brandan Ugalde MD Chloride [Moles/Vol] 115 mmol/L High 98-107 [facility] Comment on above: Performed By: #### C DP, IPF, BMP #### [facility] [address] [place] [address] 13464 Social Services Coordinator: Brandan Ugalde MD CO2 [Moles/Vol] 14 mmol/L Low 20-31 [facility] Comment on above: Performed By: #### C DP, IPF, BMP #### [facility] [employer] [address] [place] [address] Social Services Coordinator: Brandan Ugalde MD Creatinine [Mass/Vol] 2.15 mg/dL High 0.50-0.90 [facility] Comment on above: Performed By: #### C DP, IPF, BMP #### [address] [address] Social Services Coordinator: Brandan Ugalde MD GFR, Amer 30 mL/min Low >60 [facility] Comment on above: Performed By: #### C DP, IPF, BMP #### [facility] [employer] [address] [place] [address] Social Services Coordinator: Brandan Ugalde MD GFR,non Amer 25 mL/min Low >60 [facility] Comment on above: Performed By: #### C DP, IPF, BMP #### [facility] [employer] [address] [place] [address] Social Services Coordinator: Brandan Ugalde MD Glucose [Mass/Vol] 160 mg/dL High 70-99 [facility] Comment on above: Performed By: #### C DP, IPF, BMP #### [facility] [address] [place] [address], [place] [address] Social Services Coordinator: Brandan Ugalde MD Potassium [Moles/Vol] 2.9 mmol/L Critically low 3.7-5.3 [facility] Comment on above: Performed By: #### C DP IPF, BMP #### [facility] [address] [place] [address] Social Services Coordinator: Brandan Ugalde MD Sodium [Moles/Vol] 142 mmol/L Normal 135-144 [facility] Comment on above: Performed By: #### C DP, IPF, BMP #### [facility] [employer] [address] [place] [address] Social Services Coordinator: Brandan Ugalde MD Urea nitrogen [Mass/Vol] 33 mg/dL High 6-20 [facility] Comment on above: Performed By: #### C DP IPF, BMP #### [facility] [address] [place] [address] Social Services Coordinator: Brandan Ugalde MD BUN/CRE Ratio NOT REPORTED Normal -20 [facility] Comment on above: Performed By: #### C DP, IPF, BMP #### [facility] [employer] [address] [place] [address] Social Services Coordinator: Brandan Ugalde MD Staging: NOT REPORTED Normal [facility] Comment on above: Performed By: #### C DP, IPF, BMP #### [employer] [address] [place] [address] Social Services Coordinator: Brandan Ugalde MD CBC WITH AUTO DIFFERENTIALon 09-28-2021 Absolute Eos # <0.03 [facility] Absolute Immature Granulocyte 0.18 [employer] Absolute Lymph # 1.06 Low [facility] He alth Absolute Fountain # 1.03 [facility] Hea lth Basophils (Bld) [#/Vol] 10*3/uL [employer] Basophils/100 WBC (Bld) 0 % 0 - 2 % [facility] [employer] Differential Type NOT REPORTED [facility] [employer] Eosinophils/100 WBC (Bld) 0 % Low 1 - 4 % [employer] Hematocrit (Bld) [Volume fraction] 36.2 % Low 36.3 - 47.1 % [facility] Hemoglobin.gastroin testinal spec 1 Ql (Stl) 12.8 g/dL 11.9 - 15.1 g/dL [facility] Immature granulocytes/100 WBC (Bld) 1 % High 0 [facility] [employer] Interpretation and review of laboratory results Abnormal [facility] [employer] Lymphocytes/100 WBC (Bld) 8 % Low 24 - 43 % [facility] [employer] MCH (RBC) [Entitic mass] 29.1 pg 25.2 - 33.5 pg [facility] [employer] MCHC (RBC) [Mass/Vol] 35.4 g/dL High 28.4 - 34.8 g/dL [facility] [employer] MCV (RBC) [Entitic vol] 82.3 fL Low 82.6 - 102.9 fL [facility] [employer] Monocytes/100 WBC (Bld) 8 % 3 - 12 % [facility] [employer] NRBC Automated 0.0 0.0 per 100 WBC [facility] [employer] Platelet distribution width (Bld) [Ratio] 13.2 % 11.8 - 14.4 % [facility] Platelet Estimate NOT REPORTED [facility] [employer] Platelet mean volume (Bld) [Entitic vol] NOT REPORTED 8.1 - 13.5 fL [employer] Platelets (Bld) [#/Vol] See Reflexed IPF Result [facility] [employer] RBC (Bld) [#/Vol] 4.40 10*6/uL 3.95 - 5.11 m/uL [facility] [employer] RBC (Bld) [#/Vol] MICROCYTOSIS PRESENT [facility] [employer] Segmented neutrophils/100 WBC (Bld) 82 % High 36 - 65 % [facility] [employer] Segs Absolute 10.34 High [facility] Healt h WBC (Bld) [#/Vol] 12.6 10*3/uL High [facility] WBC (Bld) [#/Vol] NOT REPORTED [facility] CBC with Diffon 09-28-2021 Abs. Basophil <0.03 Normal 0.00-0.20 [facility] Comment on above: Performed By: #### C DP, IPF, BMP #### [facility] [place], [place] [id number] Social Services Coordinator: Brandan Ugalde MD Abs. Eosinophil <0.03 Normal 0.00-0.44 [facility] Comment on above: Performed By: #### C EMILIO MASON, BMP #### [facility] [employer] [address] [place] [address] Social Services Coordinator: Brandan Ugalde MD Abs.Imm.Granulocyte 0.18 k/uL Normal 0.00-0.30 [facility] Comment on above: Performed By: #### C ISABELLA IPF, BMP #### [facility] [employer] [address] [place] [address] Social Services Coordinator: Brandan Ugalde MD Abs.Neutrophil (Seg) 10.34 k/uL High 1.50-8.10 [facility] Comment on above: Performed By: #### C EMILIO MASON, BMP #### [place] [address] Social Services Coordinator: Brandan Ugalde MD Basophils/100 WBC (Bld) 0 % Normal 0-2 [facility] Comment on above: Performed By: #### C EMILIO MASON, BMP #### [address] [address] Social Services Coordinator: Brandan Ugalde MD Eosinophils/100 WBC (Bld) 0 % Low 1-4 [facility] Comment on above: Performed By: #### C EMILIO MASON, BMP #### [facility] [employer] [address] [place] [address] Social Services Coordinator: Brandan Ugalde MD Erythrocyte distribution width (RBC) [Ratio] 13.2 % Normal 11.8-14.4 [facility] Comment on above: Performed By: #### C ISABELLA IPF, BMP #### [facility] [employer] [address] [place] [address] Social Services Coordinator: Brandan Ugalde MD Hematocrit (Bld) [Volume fraction] 36.2 % Low 36.3-47.1 [facility] Comment on above: Performed By: #### C DP IPF, BMP #### [facility] [employer] [address] [place] [address] Social Services Coordinator: Brandan Ugalde MD Hemoglobin (Bld) [Mass/Vol] 12.8 g/dL Normal 11.9-15.1 [facility] Comment on above: Performed By: #### C DP, IPF, BMP #### [facility] [employer] [address] [place] [address] Social Services Coordinator: Brandan Ugalde MD Immature granulocytes/100 WBC (Bld) 1 % High 0 [facility] Comment on above: Performed By: #### C DP IPF, BMP #### [facility] [employer] [address] [place] [address] Social Services Coordinator: Brandan Ugalde MD Lymphocytes (Bld) [#/Vol] 1.06 10*3/uL Low 1.10-3.70 [facility] Comment on above: Performed By: #### C DP, IPF, BMP #### [place] [address] Social Services Coordinator: Brandan Ugalde MD Lymphocytes/100 WBC (Bld) 8 % Low 24-43 [facility] Comment on above: Performed By: #### C DP IPF, BMP #### [place] [address] Social Services Coordinator: Brandan Ugalde MD MCH (RBC) [Entitic mass] 29.1 pg Normal 25.2-33.5 [facility] Comment on above: Performed By: #### C DP, IPF, BMP #### [facility] [employer] [address] [place] [address] Social Services Coordinator: Brandan Ugalde MD MCHC (RBC) [Mass/Vol] 35.4 g/dL High 28.4-34.8 [facility] Comment on above: Performed By: #### C DP, IPF, BMP #### [address] [address] Social Services Coordinator: Brandan Ugalde MD MCV (RBC) [Entitic vol] 82.3 fL Low 82.6-102.9 [facility] Comment on above: Performed By: #### C DP, IPF, BMP #### [address] [address] Social Services Coordinator: Brandan Ugalde MD Monocytes (Bld) [#/Vol] 1.03 10*3/uL Normal 0.10-1.20 [facility] Comment on above: Performed By: #### C DP, IPF, BMP #### [address] [address] Social Services Coordinator: Brandan Ugalde MD Monocytes/100 WBC (Bld) 8 % Normal 3-12 [facility] Comment on above: Performed By: #### C DP, IPF, BMP #### [address] [address] Social Services Coordinator: Brandan Ugalde MD Neutrophil (Seg) 82 % High 36-65 [facility] Comment on above: Performed By: #### C DP, IPF, BMP #### [address] [address] Social Services Coordinator: Brandan Ugalde MD NRBC Automated 0.0 per 100 WBC Normal 0.0 [facility] Comment on above: Performed By: #### C DP, IPF, BMP #### [address] [address] Social Services Coordinator: Brandan Ugalde MD Platelet Count See Reflexed IPF Result Normal 138-453 [facility] Comment on above: Performed By: #### C DP, IPF, BMP #### [facility] [employer] [address] [place] [address] Social Services Coordinator: Brandan Ugalde MD RBC (Bld) [#/Vol] 4.40 10*6/uL Normal 3.95-5.11 [facility] Comment on above: Performed By: #### C DP, IPF, BMP #### [address] [address] Social Services Coordinator: Brandan Ugalde MD RBC morphology finding Nom (Bld) MICROCYTOSIS PRESENT Normal [facility] Comment on above: Performed By: #### C DP, IPF, BMP #### [address] [address] Social Services Coordinator: Brandan Ugalde MD WBC (Bld) [#/Vol] 12.6 10*3/uL High 3.5-11.3 [facility] Comment on above: Performed By: #### C DP, IPF, BMP #### [address] [address] Social Services Coordinator: Brandan Ugalde MD Auto Diff Performed NOT REPORTED Normal [facility] Comment on above: Performed By: #### C DP, IPF, BMP #### [address] [address] Social Services Coordinator: Brandan Ugalde MD MPV NOT REPORTED Normal 8.1-13.5 [facility] Comment on above: Performed By: #### C DP, IPF, BMP #### [address] [address] Social Services Coordinator: Brandan Ugalde MD Platelet Comment NOT REPORTED Normal [facility] Comment on above: Performed By: #### C DP, IPF, BMP #### [address] [address] Social Services Coordinator: Brandan Ugalde MD WBC Morphology NOT REPORTED Normal [facility] Comment on above: Performed By: #### C DP, IPF, BMP #### [facility] [employer] [address] [place] [address] Social Services Coordinator: Brandan Ugalde MD Immature Platelet Fractionon 09-28-2021 Interpretation and review of laboratory results Abnormal [facility] Platelet, Fluorescence 147 [facility] Comment on above: ORDERED BY LAB Platelet, Immature Fraction 0.4 % Low 1.1 - 10.3 % [facility] Comment on above: ORDERED BY LAB [facility] LACTIC ACID, WHOLE BLOODon 0 09-28-2021 Lactic Acid, Whole Blood 1.4 mmol/L 0.7 - 2.1 mmol/L [facility] Lactic Acid,Whole Blon 09-28 Lactic Acid,Whole Bl 1.4 mmol/L Normal 0.7-2.1 [facility] Comment on above: Performed By: #### L ACWB #### [facility] [address] [place] [address] Social Services Coordinator: Brandan Ugalde MD MRSA, DNA, Nasalon Specimen Description .NASAL SWAB Normal [facility] Comment on above: Performed By: #### C DP, IPF, BMP #### [employer] [address] [place] [address] Social Services Coordinator: Brandan Ugalde MD Magnesiumon 09-28-2021 Magnesium [Mass/Vol] 1.8 mg/dL 1.6 - 2.6 mg/dL [facility] Magnesium [Mass/Vol] 1.9 mg/dL Normal 1.6-2.6 [facility] Comment on above: Performed By: #### C DP, IPF, BMP #### [employer] [address] [place] [address] Social Services Coordinator: Brandan Ugalde MD Magnesium [Mass/Vol] 1.9 mg/dL 1.6 - 2.6 mg/dL [facility] Magnesium [Mass/Vol] 2.1 mg/dL Normal 1.6-2.6 [facility] Comment on above: Performed By: #### B MP, MG, MARZENA #### [facility] [address] [place] [address] Social Services Coordinator: Brandan Ugalde MD Magnesium [Mass/Vol] 2.1 mg/dL 1.6 - 2.6 mg/dL [facility] Microscopic Urinalysison - [facility] Amorphous, UA NOT REPORTED [facility] B[facility], UA NOT REPORTED None [facility] th Casts UA FINE GRANULAR [facility] UA 5 TO 10 [facility] Crystals, UA NOT REPORTED None /HPF [facility] th Epithelial Cells UA 5 TO 10 [facility] Interpretation and review of laboratory results Abnormal [facility] Mucus, UA NOT REPORTED None [facility] Other Observations UA NOT REPORTED NOT REQ. [facility] RBC, UA 5 TO 10 [facility] Renal Epithelial, UA NOT REPORTED 0 /HPF [facility] Trichomonas, UA NOT REPORTED None [facility] ealth WBC, UA 5 TO 10 [facility] Yeast, UA MODERATE Abnormal None [facility] No Panel Informationon 09-28 Interpretation and review of laboratory results Abnormal [facility] Interpretation and review of laboratory results Abnormal [facility] Interpretation and review of laboratory results Abnormal [facility] PLT, Immature Fract.on 09-28 Platelet, Fluoresc. 147 k/uL Normal 138-453 [facility] Comment on above: Result Comment: ORDE RED BY LAB Performed By: #### C DP, IPF, BMP #### [facility] [address] [place], [place] [id number] Social Services Coordinator: Brandan Ugalde MD PLT, Immature Fract. 0.4 % Low 1.1-10.3 [facility] Comment on above: Result Comment: ORDE RED BY LAB Performed By: #### C DP, IPF, BMP #### [facility] [address] [place], [place] [phone] Social Services Coordinator: Brandan Ugalde MD POC Glucose Fingerstickon Glucose [Mass/Vol] 140 mg/dL High 65 - 105 mg/dL [facility] Interpretation and review of laboratory results Abnormal [facility] Glucose [Mass/Vol] 148 mg/dL High 65 - 105 mg/dL [facility] Interpretation and review of laboratory results Abnormal [facility] Glucose [Mass/Vol] 161 mg/dL High 65 - 105 mg/dL [facility] Interpretation and review of laboratory results Abnormal [facility] Glucose [Mass/Vol] 176 mg/dL High 65 - 105 mg/dL [facility] Interpretation and review of laboratory results Abnormal [facility] Glucose [Mass/Vol] 212 mg/dL High 65 - 105 mg/dL [facility] Interpretation and review of laboratory results Abnormal [facility] Glucose [Mass/Vol] 223 mg/dL High 65 - 105 mg/dL [facility] Interpretation and review of laboratory results Abnormal [facility] Glucose [Mass/Vol] 208 mg/dL High 65 - 105 mg/dL [facility] Interpretation and review of laboratory results Abnormal [facility] Glucose [Mass/Vol] 248 mg/dL High 65 - 105 mg/dL [facility] Interpretation and review of laboratory results Abnormal [facility] Glucose [Mass/Vol] 217 mg/dL High 65 - 105 mg/dL [facility] Interpretation and review of laboratory results Abnormal [facility] Glucose [Mass/Vol] 205 mg/dL High 65 - 105 mg/dL [facility] Interpretation and review of laboratory results Abnormal [facility] Glucose [Mass/Vol] 199 mg/dL High 65 - 105 mg/dL [facility] Interpretation and review of laboratory results Abnormal [facility] Glucose [Mass/Vol] 178 mg/dL High 65 - 105 mg/dL [facility] Interpretation and review of laboratory results Abnormal [facility] Glucose [Mass/Vol] 151 mg/dL High 65 - 105 mg/dL [facility] Interpretation and review of laboratory results Abnormal [facility] Glucose [Mass/Vol] 162 mg/dL High 65 - 105 mg/dL [facility] Interpretation and review of laboratory results Abnormal [facility] Phosphoruson 09-28-2021 Phosphate [Mass/Vol] 1.9 mg/dL Low 2.6 - 4.5 mg/dL [facility] Phosphate [Mass/Vol] 1.6 mg/dL Low 2.6 - 4.5 mg/dL [facility] Phosphate [Mass/Vol] 1.9 mg/dL Low 2.6 - 4.5 mg/dL [facility] Phosphorus, Inorg.on 022 Phosphorus, Inorg. 1.6 mg/dL Low 2.6-4.5 [facility] Comment on above: Performed By: #### C EMILIO MASON, BMP #### [facility] [address] [place] [address] Social Services Coordinator: Brandan Ugalde MD Phosphorus, Inorg. 1.9 mg/dL Low 2.6-4.5 [facility] Comment on above: Performed By: #### C EMILIO MASON, BMP #### [facility] [address] [place], [place] [phone] Social Services Coordinator: Brandan Ugalde MD Urinalysison 09-28-2021 Bilirubin Urine Negative NEGATIVE [facility] lt Color, UA Yellow Yellow [facility] Glucose, Ur 1+ Abnormal NEGATIVE [facility] Interpretation and review of laboratory results Abnormal [facility] Ketones Ql (U) SMALL Abnormal NEGATIVE [facility] Leukocyte esterase Test strip Ql (U) MODERATE Abnormal NEGATIVE [facility] Nitrite, Urine Negative NEGATIVE [facility] pH, UA 5.5 [facility] Protein, UA 2+ Abnormal NEGATIVE [facility] Specific [place], UA 1.016 [facility] Turbidity UA Turbid Abnormal Clear [facility] Urinalysis Comments NOT REPORTED [facility] Urine Hgb LARGE Abnormal NEGATIVE [facility] Urobilinogen, Urine Normal Normal [facility] Urinalysis, Routineon 2021 Bilirubin, SemiQt,Ur Negative Normal NEG [facility] Comment on above: Performed By: #### U A, UMICAO #### [facility] [address] [place] [address] Social Services Coordinator: Brandan Ugalde MD Blood, Urine LARGE Abnormal NEG [facility] Comment on above: Performed By: #### U A, UMICAO #### [facility] [address] [place], [place] [phone] Social Services Coordinator: Brandan Ugalde MD Clarity (U) Turbid Abnormal CLEAR [facility] Comment on above: Performed By: #### U A, UMICAO #### [facility] [address] [place] [address] Social Services Coordinator: Brandan Ugalde MD Color (U) Yellow Normal YEL [facility] Comment on above: Performed By: #### U A, UMICAO #### [facility] [address] [place] [address] Social Services Coordinator: Brandan Ugalde MD Glucose Ql (U) 1+ Abnormal NEG [facility] Comment on above: Performed By: #### U A, UMICAO #### [facility] [employer] [address] [place] [address] Social Services Coordinator: Brandan Ugalde MD Ketones Ql (U) SMALL Abnormal NEG [facility] Comment on above: Performed By: #### U A UMICAO #### [address] [address] Social Services Coordinator: Brandan Ugalde MD Leukocyte esterase Test strip Ql (U) MODERATE Abnormal NEG [facility] Comment on above: Performed By: #### U A UMICAO #### [facility] [employer] [address] [place] [address] Social Services Coordinator: Brandan Ugalde MD Nitrite,Ur Negative Normal NEG [facility] Comment on above: Performed By: #### U A UMICAO #### [facility] [employer] [address] [place] [address] Social Services Coordinator: Brandan Ugalde MD PH,Ur 5.5 Normal 5.0-8.0 [facility] Comment on above: Performed By: #### U A, UMICAO #### [facility] [employer] [address] [place] [address] Social Services Coordinator: Brandan Ugalde MD Protein Ql (U) 2+ Abnormal NEG [facility] Comment on above: Performed By: #### U A, UMICAO #### [facility] [employer] [address] [place] [address] Social Services Coordinator: Brandan Ugalde MD Spec. [place],Ur 1.016 Normal 1.005-1.030 [facility] Comment on above: Performed By: #### U A, UMICAO #### [address] [address] Social Services Coordinator: Brandan Ugalde MD Urobilinogen,Ur Normal Normal NORM [facility] Comment on above: Performed By: #### U A UMICAO #### [address] [address] Social Services Coordinator: Brandan Ugalde MD Comment NOT REPORTED Normal [facility] Comment on above: Performed By: #### U A UMICAO #### [address] [address] Social Services Coordinator: Brandan Ugalde MD Urinalysis,Microon 2 ----- Normal [facility] Comment on above: Performed By: #### U A, UMICAO #### [address] [address] Social Services Coordinator: Brandan Ugalde MD Casts FINE GRANULAR Normal 0-2 [facility] Comment on above: Result Comment: 5 TO 10 Performed By: #### U A, UMICAO #### [address] [address] Social Services Coordinator: Brandan Ugalde MD Epithelial cells LM Ql (Urine sed) 5 TO 10 Normal 0-5 [facility] Comment on above: Performed By: #### U A, UMICAO #### [address] [address] Social Services Coordinator: Brandan Ugalde MD Urine RBC's 5 TO 10 Normal 0-2 [facility] Comment on above: Performed By: #### U A, UMICAO #### [facility] [address] [place] [address] Social Services Coordinator: Brandan Ugalde MD Urine WBC's 5 TO 10 Normal 0-5 [facility] Comment on above: Performed By: #### U A, UMICAO #### [facility] [address] [place] [address] Social Services Coordinator: Brandan Ugalde MD Yeast MODERATE Abnormal NONE [facility] Comment on above: Performed By: #### U A, UMICAO #### [facility] [employer] [address] [place] [address] Social Services Coordinator: Brandan Ugalde MD Amorphous sediment LM Ql (Urine sed) NOT REPORTED Normal NONE [facility] Comment on above: Performed By: #### U A, UMICAO #### [facility] [employer] [address] [place] [address] Social Services Coordinator: Brandan Ugalde MD Bacteria NOT REPORTED Normal NONE [facility] Comment on above: Performed By: #### U A, UMICAO #### [facility] [employer] [address] [place] [address] Social Services Coordinator: Brandan Ugalde MD Crystals LM Nom (Urine sed) NOT REPORTED Normal NONE [facility] Comment on above: Performed By: #### U A, UMICAO #### [facility] [address] [place] [address] Social Services Coordinator: Brandan Ugalde MD Epithelial, Renal NOT REPORTED Normal 0 [facility] Comment on above: Performed By: #### U A, UMICAO #### [facility] [address] [place] [address] Social Services Coordinator: Brandan Ugalde MD Mucus Strands NOT REPORTED Normal [facility] Comment on above: Performed By: #### U ACOLLEENICAO #### [facility] [employer] [address] [place] [address] Social Services Coordinator: Brandan Ugalde MD Other Observations NOT REPORTED Normal NREQ [facility] Comment on above: Performed By: #### U ACOLLEENICAO #### [facility] [employer] [address] [place] [address] Social Services Coordinator: Brandan Ugalde MD Trichomonas NOT REPORTED Normal NONE [facility] Comment on above: Performed By: #### U APRATIBHA #### [facility] [employer] [address] [place] [address] Social Services Coordinator: Brandan Ugalde MD Venous Blood Gaseson 022 Body Temp. 37.0 Normal [facility] Comment on above: Performed By: #### V BG #### [address] [address] Social Services Coordinator: Brandan Ugalde MD Carboxy Hgb 2.2 % Normal 0-5 [facility] Comment on above: Result Comment: Reference Range: Non-Smokers 0-2% Average Smoker 2-4% Heavy Smoker <10% Performed By: #### V BG #### [address] [address] Social Services Coordinator: Brandan Ugalde MD FIO2 UNKNOWN Normal [facility] Comment on above: Performed By: #### V BG #### [address] [address] Social Services Coordinator: Brandan Ugalde MD HCO3 (Bld) [Moles/Vol] 17.3 mmol/L Low 24-30 [facility] Comment on above: Performed By: #### V BG #### [address] [address] Social Services Coordinator: Brandan Ugalde MD Negative Base Excess 8.2 mmol/L High 0.0-2.0 [facility] Comment on above: Performed By: #### V BG #### [address] [address] Social Services Coordinator: Brandan Ugalde MD Oxygen (Bld) [Partial pressure] 34.0 mm[Hg] Normal 30-50 [facility] Comment on above: Performed By: #### V BG #### [address] [address] Social Services Coordinator: Brandan Ugalde MD Oxygen saturation in Blood 80.7 % Normal 60.0-85.0 [facility] Comment on above: Performed By: #### V BG #### [address] [address] Social Services Coordinator: Brandan Ugalde MD pCO2 37.0 Low 39-55 [facility] Comment on above: Performed By: #### V BG #### [address] [address] Social Services Coordinator: Brandan Ugalde MD pH (Bld) 7.290 [pH] Low 7.320-7.420 [facility] Comment on above: Performed By: #### V BG #### [address] [address] Social Services Coordinator: Brandan Ugalde MD Josh Test NOT REPORTED Normal [facility] Comment on above: Performed By: #### V BG #### [address] [address] Social Services Coordinator: Brandan Ugalde MD Methemoglobin NOT REPORTED Normal 0.0-1.5 [facility] Comment on above: Performed By: #### V BG #### [address] [address] Social Services Coordinator: Brandan Ugalde MD Mode NOT REPORTED Normal [facility] Comment on above: Performed By: #### V BG #### [facility] [address] [place] [address] Social Services Coordinator: Brandan Ugalde MD Notification Time NOT REPORTED Normal [facility] Comment on above: Performed By: #### V BG #### [facility] [address] [place] [address] Social Services Coordinator: Brandan Ugalde MD Notification: NOT REPORTED Normal [facility] Comment on above: Performed By: #### V BG #### [facility] [employer] [address] [place] [address] Social Services Coordinator: Brandan Ugalde MD O2 Device/Flow/% NOT REPORTED Normal [facility] Comment on above: Performed By: #### V BG #### [address] [address] Social Services Coordinator: Brandan Ugalde MD Oxyhemoglobin NOT REPORTED Normal 95.0-98.0 [facility] Comment on above: Performed By: #### V BG #### [facility] [employer] [address] [place] [address] Social Services Coordinator: Brandan Ugalde MD Pco2 Adj'd for Temp. NOT REPORTED Normal 39-55 [facility] Comment on above: Performed By: #### V BG #### [facility] [employer] [address] [place] [address] Social Services Coordinator: Brandan Ugalde MD PEEP/CPAP NOT REPORTED Normal [facility] Comment on above: Performed By: #### V BG #### [facility] [employer] [address] [place] [address] Social Services Coordinator: Brandan Ugalde MD pH Adjst'd for Temp. NOT REPORTED Normal 7.320-7.420 [facility] Comment on above: Performed By: #### V BG #### [facility] [address] [place] [address] [phone] Social Services Coordinator: Brandan Ugalde MD pO2 Adj'd for Temp. NOT REPORTED Normal 30-50 [facility] Comment on above: Performed By: #### V BG #### [address] [address] Social Services Coordinator: Brandan Ugalde MD Positive Base Excess NOT REPORTED Normal 0.0-2.0 [facility] Comment on above: Performed By: #### V BG #### [facility] [employer] [address] [place] [address] Social Services Coordinator: Brandan Ugalde MD PSV NOT REPORTED Normal [facility] Comment on above: Performed By: #### V BG #### [address] [address] Social Services Coordinator: Brandan Ugalde MD Pt. Position NOT REPORTED Normal [facility] Comment on above: Performed By: #### V BG #### [address] [address] Social Services Coordinator: Brandan Ugalde MD Respiratory Rate NOT REPORTED Normal [facility] Comment on above: Performed By: #### V BG #### [address] [address] Social Services Coordinator: Brandan Ugalde MD Set Rate NOT REPORTED Normal [facility] Comment on above: Performed By: #### V BG #### [facility] [address] [place] [address] Social Services Coordinator: Brandan Ugalde MD Site Drawn NOT REPORTED Normal [facility] Comment on above: Performed By: #### V BG #### [facility] [employer] [address] [place] [address] Social Services Coordinator: Brandan Ugalde MD Text for Respiratory NOT REPORTED Normal [facility] Comment on above: Performed By: #### V BG #### [employer] [address] [place] [address] Social Services Coordinator: Brandan Ugalde MD Total Hb NOT REPORTED Normal 12.0-16.0 [facility] Comment on above: Performed By: #### V BG #### [employer] [facility] [address] [place] [address] Social Services Coordinator: Brandan Ugalde MD Total Rate NOT REPORTED Normal [facility] Comment on above: Performed By: #### V BG #### [employer] [facility] [address] [place] [address] Social Services Coordinator: Brandan Ugalde MD VT NOT REPORTED Normal [facility] Comment on above: Performed By: #### V BG #### [facility] [address] [place] [address] Social Services Coordinator: Brandan Ugalde MD XR CHEST PORTABLEon 09-28-19 XR CHEST PORTABLE EXAMINATION: ONE XRAY VIEW OF THE CHEST 09/28/2021 10:34 am COMPARISON: None. HISTORY: ORDERING SYSTEM PROVIDED HISTORY: pneumonia concern TECHNOLOGIST PROVIDED HISTORY: pneumonia concern FINDINGS: AP portable view of the chest time stamped at 1030 hours demonstrates overlying cardiac monitoring electrodes. Heart size is borderline. Scattered bilateral pulmonary opacities are present right greater than left, overall appearance favoring multifocal airspace disease/pneumonia. No effusion or extrapleural air is noted. IMPRESSION: Bilateral scattered pulmonary opacities consistent with multifocal airspace disease/pneumonia. No extrapleural air. Interpreted by: Perla Sommer MD Signed by: Perla Sommer MD 09/28/21 Final result Normal [facility] Bilateral scattered pulmonary opacities consistent with multifocal airspace disease/pneumonia. No extrapleural air. MHPN RIS CONSOLIDATED EXAMINATION: ONE XRAY VIEW OF THE CHEST 09/28/2021 10:34 am COMPARISON: None. HISTORY: ORDERING SYSTEM PROVIDED HISTORY: pneumonia concern TECHNOLOGIST PROVIDED HISTORY: pneumonia concern FINDINGS: AP portable view of the chest time stamped at 1030 hours demonstrates overlying cardiac monitoring electrodes. Heart size is borderline. Scattered bilateral pulmonary opacities are present right greater than left, overall appearance favoring multifocal airspace disease/pneumonia. No effusion or extrapleural air is noted. PN RIS CONSOLIDATED Perla Sommer MD - 09/28/2021 EXAMINATION: ONE XRAY VIEW OF THE CHEST 09/28/2021 10:34 am COMPARISON: None. HISTORY: ORDERING SYSTEM PROVIDED HISTORY: pneumonia concern TECHNOLOGIST PROVIDED HISTORY: pneumonia concern FINDINGS: AP portable view of the chest time stamped at 1030 hours demonstrates overlying cardiac monitoring electrodes. Heart size is borderline. Scattered bilateral pulmonary opacities are present right greater than left, overall appearance favoring multifocal airspace disease/pneumonia. No effusion or extrapleural air is noted. IMPRESSION: Bilateral scattered pulmonary opacities consistent with multifocal airspace disease/pneumonia. No extrapleural air. [employer] Phone: Radiology Study observation (narrative) [employer] Phone: XR CHEST PORTABLEOrdered By: Perla Sommer on 09-28-2021 [employer] Phone: ANKLE LEFT MIN 3 VIEWS Mon 0 05-23-2021 ANKLE LEFT MIN 3 VIEWS M Patient Name: YAMILA LOZADA Patient Patient : 1980 Examination: ANKLE LEFT MIN 3 VIEWS M Date of Exam: 05/23/2021 1:23 PM Ordering Provider: REEMA PEREZ MD Comparison: None Relevant Clinical Information: ACUTE PAIN DUE TO TRAUMA NUMBER OF VIEWS: 3 DISCUSSION: Bones: There is deformity of the distal fibula which likely is related to old trauma. Correlation with clinical history is recommended. No definite acute fracture identified. Joints: Ankle mortise is intact. Degenerative change at the ankle. Soft tissues: Soft tissue swelling, more pronounced laterally. IMPRESSION: 1. Deformity of distal fibula, likely related to old trauma. Correlation with clinical history is recommended. 2. No definite acute bony abnormality identified. There is soft tissue swelling. If symptoms persist repeat examination is recommended in 7-10 days. MRI could be performed for further evaluation if clinically indicated. Professional Interpretation by Radiology This report was generated entirely using voice recognition software. If you have any questions or concerns, please contact the facility radiology department. Electronically Signed By: Mt Ho MD On: 05/23/2021 1:42 PM [facility] Consent for Treatmenton 06-0 Consent for Treatment [id number] Normal [facility] ED Clinical Summaryon 2020 ED Clinical Summary [place] [id number] ED Clinical Summary Person Information Name: YAMILA LOZADA/[place] Age: 40 Years : 1980 Sex: Female Language: Lithuanian PCP: DIAZ BETTS MD Marital Status: Visit Id: Visit Reason: Arm pain-swelling; RT ARM SWOLLEN/PAINFUL Speciality: Acuity: 3 Enc Type: Emergency Med Service: Emergency Arrival: 02/05/2021 22:28:14 Discharge: 02/06/2021 02:47:21 LOS: 000 04:19 Checkin: 02/05/2021 22:28:14 Checkout: 02/06/2021 02:47:21 Dispo Type: Left Without Being Seen EVENTS: Event Name Event Status Request Date/Time Start Date/Time Complete Date/Time Arrive Complete 02/05/2021 22:28:14 02/05/2021 22:28:14 02/05/2021 22:28:14 Document Home Meds Request 02/05/2021 22:28:14 Triage Complete 02/05/2021 22:28:14 02/05/2021 22:40:35 02/05/2021 22:40:35 Registration Complete 02/05/2021 22:35:49 02/05/2021 22:35:49 02/05/2021 22:35:49 Reg Complete Request 02/05/2021 22:35:49 Reg Bed Request Complete 02/05/2021 22:35:49 02/05/2021 22:35:49 02/05/2021 22:35:49 Dr Exam Complete 02/06/2021 02:37:44 02/06/2021 02:37:44 02/06/2021 02:37:44 Registration Request 02/06/2021 02:37:44 Discharge Complete 02/06/2021 02:47:40 02/06/2021 02:47:40 02/06/2021 02:47:40 Transfer Complete 02/06/2021 02:47:40 02/06/2021 02:47:40 02/06/2021 02:47:40 ADDRESS: [place] [place] [phone] PHYS DOC NOTES: MEDICAL INFORMATION: Prescriptions Given: PATIENT EDUCATION INFORMATION: Instructions: Follow up: DIAGNOSIS: Normal [facility] ED Patient Education Noteon 02-06-2021 ED Patient Education Note Normal [facility] ED Patient Summaryon 021 ED Patient Summary [place] [id number] Patient Discharge Instructions Person Information Name: YAMILA LOZADA Age: 40 Years Arrival Date: 02/05/2021 22:28:14 Discharge Diagnosis: Primary Care Physician: DIAZ BETTS MD Provider Information Primary Provider: Loco Marcos MD [employer] Pantograph Machine Operator:None The exam and treatment you received in the Emergency Department were for an urgent problem and are not intended as complete care. It is important that you follow up with a doctor, nurse practitioner, or physician?s group fitness assistant department head for ongoing care. If your symptoms become worse or you do not improve as expected and you are unable to reach your usual health care provider, you should return to the Emergency Department. We are available 24 hours a day. YAMILA LOZADA has been given the following list of patient education materials, prescriptions and follow-up instructions: Follow-up Instructions: In the event that this physician does not participate in your insurance network, please consult with your insurance company to find a nearby participating provider. Patient Education Materials: A MESSAGE TO ALL PATIENTS REGARDING OPIOIDS PRESCRIPTION OPIOIDS: WHAT YOU NEED TO KNOW Prescription opioids can be used to help relieve eomkmjgy-mj-[id number] pain and are often prescribed following a surgery or injury, or for certain health conditions. These medications can be an important part of the treatment but also come with serious risks. It is important to work with your healthcare provider to make sure you are getting the safest, most effective care. WHAT ARE THE RISKS AND SIDE EFFECTS OF OPIOID USE? Prescription opioids carry serious risks of addiction and overdose, especially with prolonged use. An opioid overdose, often marked by slowed breathing, can cause sudden . The use of prescription opioids can have a number of side effects as well, even when taken as directed: ? Tolerance?meaning you might need to take more of the medication for the same pain relief ? Physical dependence?meaning you have symptoms of withdrawal when a medication is stopped ? Increased sensitivity to pain ? Constipation ? Nausea, vomiting, and dry mouth ? Sleepiness and dizziness ? Confusion ? Depression ? Low levels of testosterone that can result in lower sex drive, energy, and strength ? Itching and sweating RISKS ARE GREATER WITH: ? History of drug misuse, substance use disorder, or overdose ? Mental health conditions (such as depression or anxiety) ? Sleep apnea ? Older age (65 years and older) ? Avoid alcohol while taking prescription opioids. Also, unless specifically advised by your health care provider, medications to avoid include: ? Benzodiazepines (such as Xanax or Valium) ? Muscle relaxants (such as Soma or Flexeril) ? Hypnotics (such as Ambien or Lunesta) ? Other prescription opioids KNOW YOUR OPTIONS Talk to your health care provider about ways to manage your pain that don?t involve prescription opioids. Some of these options may actually work better and have fewer risks and side effects. Options may include: ? Pain relievers such as acetaminophen, ibuprofen, and naproxen ? Some medication that are also used for depression or seizures ? Physical therapy and exercise ? Cognitive behavioral therapy, a psychological, goal-directed approach, in which patients learn how to modify physical, behavioral, and emotional triggers of pain and stress. IF YOU ARE PRESCRIBED OPIOIDS FOR PAIN: ? Never take opioids in greater amounts or more often than prescribed. ? Follow up with your primary health care provider. o Work together to create a plan on how to manage your pain. o Talk about ways to help manage your pain that don?t involve prescription opioids. o Talk about any and all concerns and side effects. ? Help prevent misuse and abuse o Never sell or share prescription opioids. o Never use another person?s prescription opioids. ? Store prescription opioids in a secure place and out of reach of others (this may include visitors, children, friends, and family). ? Safely dispose of unused prescription opioids: Find your community drug take-back program or your pharmacy mail-back program, or flush them down the toilet, following guidance from the Food and Drug Administration (www.fda.gov/Drugs/ ResourcesForYou). ? Visit www.cdc.gov/drugove rdose to learn about the risks of opioids abuse and overdose. ? If you believe you may be struggling with addiction, tell your health specialist wound care and ask for guidance or call [employer] National Helpline at 4-612-941-SECY. v Source: [place] Department of Health and Human Services/Center for Disease Control & Prevention [facility] Medications Given: Medication Dose Route No medications found. Medication Inf (more content not included)... Normal [facility] CHEST AND LATERALon 02-05-20 CHEST AND LATERAL [facility] Department of Radiology [address] [place] [address] Patient Name: YAMILA LOZADA : 1980 Sex: F Age: Race: White Pt. Location: 84 Patient Status: O Ordered Date: 02/04/2021 9:40:00 AM Completed Date: 02/04/2021 09:42 AM Requesting Provider: ALIYA RUIZ Attending Provider: ALIYA RUIZ Report Copy To: Signs & Symptoms: R22.32 Localized swelling, mass and lump, left upper limb I10 History: [place] Comments: ap/lat Exam: CHEST AND LATERAL CLINICAL INFORMATION: R22.32 Localized swelling, mass and lump, left upper limb I10 COMPARISON: None. VIEWS: 2. IMPRESSION: 1. No airspace opacifications. No effusion. 2. Rounded nodule in the right midlung measuring 1.[address] chest. 3. Normal cardiomediastinal silhouette. 4. Degenerative changes of the thoracic spine. Electronically signed: Shama Calvin. Transcribed by: [email or web address], User Resident: Electronically Signed by: SHAMA CALVIN @ 02/04/2021 02:25 PM Normal [facility] Comment on above: Order Comment: ap/la t HUMERUS LEFTon 02-04-2021 HUMERUS LEFT [facility] Department of Radiology [address] [place] [id number] Patient Name: YAMILA LOZADA : 1980 Sex: F Age: Race: White Pt. Location: Patient Status: Ordered Date: 02/04/2021 8:55:00 AM Completed Date: 02/04/2021 09:20 AM Requesting Provider: ALIYA RUIZ Attending Provider: Report Copy To: Signs & Symptoms: R22.32 Localized swelling, mass and lump, left upper limb I10 History: [place] Comments: Evaluate Exam: HUMERUS LEFT HUMERUS LEFT CLINICAL INFORMATION: Patient complains of left shoulder and humerus pain and swelling for three years COMPARISON: None. IMPRESSION: 1. No fracture or other acute osseous abnormalities identified. No abnormal sclerosis. Electronically signed: Shama Calvin. Transcribed by: Naz, User Resident: Electronically Signed by: SHAMA CALVIN @ 02/04/2021 01:59 PM Normal [facility] Comment on above: Order Comment: Evalu ate SHOULDER LEFTon 02-04-2021 SHOULDER LEFT [facility] Department of Radiology [address] [place] [address] Patient Name: YAMILA LOZADA : 1980 Sex: F Age: Race: White Pt. Location: Patient Status: Ordered Date: 02/04/2021 8:55:00 AM Completed Date: 02/04/2021 09:20 AM Requesting Provider: ALIYA RUIZ Attending Provider: Report Copy To: Signs & Symptoms: R22.32 Localized swelling, mass and lump, left upper limb I10 History: [place] Comments: Evaluate Exam: SHOULDER LEFT SHOULDER LEFT CLINICAL INFORMATION: Patient complains of left shoulder and humerus pain and swelling for three years COMPARISON: None. IMPRESSION: 1. No fracture. No dislocation. The alignment of the glenohumeral joint is normal. There are no significant acromioclavicular or glenohumeral degenerative changes. No osteophytic spurring or abnormal sclerosis. Electronically signed: Shama Calvin. Transcribed by: [email or web address], User Resident: Electronically Signed by: SHAMA CALVIN @ 02/04/2021 01:58 PM Normal [facility] Comment on above: Order Comment: Evalu ate Vital Signs Date Time Vital Sign Value Performing Clinician Faci lity 10-03-2021 11:29-0500 Body temperature 97.5 [degF] Jamal Levine MD Work Phone: [employer] 10-03-2021 11:29-0500 Diastolic blood pressure 80 mm[Hg] Jamal Levine MD Work Phone: [employer] 10-03-2021 11:29-0500 Heart rate 85 /min Jamal Levine MD Work Phone: [employer] 10-03-2021 11:29-0500 Respiratory rate 16 /min Jamal Levine MD Work Phone: [employer] 10-03-2021 11:29-0500 SaO2% (BldA) [Mass fraction] 97 % Jaaml Levine MD Work Phone: [employer] 10-03-2021 11:29-0500 Systolic blood pressure 126 mm[Hg] Jamal Levine MD Work Phone: [employer] 09-29-2021 06:00-0500 Body mass index (BMI) [Ratio] 43.59 kg/m2 Jamal Levine MD Work Phone: [employer] 09-29-2021 06:00-0500 Body weight 101.24 kg Jamal Levine MD Work Phone: [employer] 09-28-2021 09:30-0500 Body height 152.4 cm Jamal Levine MD Work Phone: [employer] Encounters Encounter Date Encounter Type Care Provider Facility Start: 09-26-2023 End: 09-26-2023 ambulatory ERIK BURR Not Available Start: 09-25-2023 ambulatory [facility] Facility:[facility] Start: 09-13-2023 End: 09-14-2023 ambulatory [facility] Facility:[facility] Start: 09-11-2023 Documentation procedure [facility] Start: 08-31-2023 End: 08-31-2023 ambulatory ARIANNA MILLER Not Available Start: 08-10-2023 End: 08-10-2023 ambulatory DIAZ BETTS Not Available Start: 08-01-2023 End: 08-01-2023 ambulatory ERIK BURR Not Available Start: 01-10-2023 End: 01-10-2023 ambulatory [facility]ICOL[facility]S MORALESTAMEK[facility] . Facility:[facility] Start: 12-26-2022 End: 12-27-[address] ERIK BURR . Facility:[facility] Start: 12-07-2022 End: 12-07-2022 ambulatory [facility] Start: 11-21-2022 End: 11-21-2022 ambulatory [facility] Start: 11-04-2022 End: 11-04-2022 ambulatory [facility] Start: 09-14-2022 End: 09-15-[address] ERIK BURR . Facility:[facility] Start: 07-14-2022 End: 07-14-[address] ERIK BURR . Facility:[facility] Start: 06-22-2022 End: 06-23-[address] ERIK BURR . Facility:[facility] Start: 02-23-2022 End: 02-24-[address] DIAZ BETTS Facility:[facility] Start: 01-23-2022 End: 01-23-[address] DIAZ BETTS Facility:[facility] Start: 09-30-2021 ambulatory DIAZ BETTS Fa cility:[facility] Start: 09-28-2021 End: 10-03-2021 Evaluation and management of inpatient [facility] Start: 09-28-2021 End: 10-03-2021 Evaluation and management of inpatient Jamal Levine MD Work Phone: [facility] Burn Unit Procedures Date Procedure Procedure Detail Performing Clinician Start: 06-05-2023 Adult depression scr eening assessment Bethanie Loredo Start: 07-14-2022 Microscopic observat ion [Identifier] in Cervix by Cyto stain Bethanie Loredo Start: 06-07-2022 Microalbumin [Mass/v olume] in Urine by Test strip Bethanie Loredo Start: 10-03-2021 Glucose blood reagen t strip Guido Serna DO Work Phone: Start: 10-03-2021 Glucose blood reagen t strip Guido Serna DO Work Phone: Start: 10-03-2021 Basic metabolic pane l calcium total Terrance Smalls PA-C Work Phone: Start: 10-03-2021 IMMATURE PLATELET FRACTION Terrance Smalls PA-C Work Phone: Start: 10-02-2021 Glucose blood reagen t strip Guido Serna DO Work Phone: Start: 10-02-2021 Glucose blood reagen t strip Guido Serna DO Work Phone: Start: 10-02-2021 Glucose blood reagen t strip Guido Serna DO Work Phone: Start: 10-02-2021 Renal function panel Eu gene Serna DO Work Phone: Start: 10-02-2021 Glucose blood reagen t strip Guido Serna DO Work Phone: Start: 10-02-2021 End: 10-02-2021 Assay of phosphorus inorganic Terrance Smalls PA-C Work Phone: Start: 10-01-2021 Glucose blood reagen t strip Guido Serna DO Work Phone: Start: 10-01-2021 Toxin/antitoxin assa y tissue culture Omar Price MD Work Phone: Start: 10-01-2021 Glucose blood reagen t strip Guido Serna DO Work Phone: Start: 10-01-2021 End: 10-01-2021 Electrolyte panel Terrance Munoz Work Phone: Start: 10-01-2021 Ct abdomen & pelvis w/o contrast material Guido Serna DO Work Phone: Start: 10-01-2021 Iadna-dna/rna gi pth gn multiplex probe tq 12-25 Guido Serna DO Work Phone: Start: 10-01-2021 RESPIRATORY PANEL, MOLECULAR, WITH COVID-19 Guido Serna DO Work Phone: Start: 10-01-2021 Glucose blood reagen t strip Guido Serna DO Work Phone: Start: 10-01-2021 End: 10-01-2021 Electrolyte panel Guido Serna DO Work Phone: Start: 10-01-2021 Assay of magnesium Andr meg Smalls PA-C Work Phone: Start: 10-01-2021 IMMATURE PLATELET FRACTION Terrance Smalls PA-C Work Phone: Start: 10-01-2021 Glucose blood reagen t strip Maycol Gomez MD Work Phone: Start: 09-30-2021 End: 09-30-2021 Electrolyte panel Terrance Phipps-Shane Work Phone: Start: 09-30-2021 Urnls dip stick/tabl et reagent auto microscopy Terrance Smalls PA-C Work Phone: Start: 09-30-2021 Glucose blood reagen t strip Maycol Gomez MD Work Phone: Start: 09-30-2021 Blood gases any combination ph pco2 po2 co2 hco3 Terrance Smalls PA-C Work Phone: Start: 09-30-2021 End: 09-30-2021 Basic metabolic panel calcium total Terrance Smalls PA-C Work Phone: Start: 09-30-2021 Glucose blood reagen t strip Maycol Gomez MD Work Phone: Start: 09-30-2021 Cul prsmptv pthgnc organism scrn w/colony estimj Terrance Smalls PA-C Work Phone: Start: 09-30-2021 Glucose blood reagen t strip Maycol Gomez MD Work Phone: Start: 09-30-2021 Hemoglobin glycosyla ministerio a1c Maycol Gomez MD Work Phone: Start: 09-30-2021 BASIC METABOLIC PANE L W/ REFLEX TO MG FOR LOW K Corina R Bedoya MEDICAL DELIVERY TECHNICIAN - CHIEF OPERATOR Work Phone: Start: 09-30-2021 SPECIMEN REJECTION Lesley Giron Sra, MD Work Phone: Start: 09-29-2021 Glucose blood reagen t strip Maycol Gomez MD Work Phone: Start: 09-29-2021 Glucose blood reagen t strip Maycol Gomez MD Work Phone: Start: 09-29-2021 Glucose blood reagen t strip Maycol Gomez MD Work Phone: Start: 09-29-2021 Glucose blood reagen t strip Jamal Levine MD Work Phone: Start: 09-29-2021 Blood gases any combination ph pco2 po2 co2 hco3 Jamal Levine MD Work Phone: Start: 09-29-2021 End: 09-29-2021 Basic metabolic panel calcium total Mi Giron Sra, MD Work Phone: Start: 09-29-2021 SPECIMEN REJECTION Pepe juanito Casarez MD Work Phone: Start: 09-29-2021 Basic metabolic pane l calcium total Mi Giron Sra, MD Work Phone: Start: 09-29-2021 Basic metabolic pane l calcium total Mi Giron Sra, MD Work Phone: Start: 09-29-2021 Glucose blood reagen t strip Jamal Levine MD Work Phone: Start: 09-28-2021 Glucose blood reagen t strip Jamal Levine MD Work Phone: Start: 09-28-2021 End: 09-28-2021 Basic metabolic panel calcium total Mi Giron Sra, MD Work Phone: Start: 09-28-2021 End: 09-28-2021 Glucose blood reagent strip Jamal Levine MD Work Phone: Start: 09-28-2021 End: 09-28-2021 Basic metabolic panel calcium total Mi Giron Sra, MD Work Phone: Start: 09-28-2021 End: 09-28-2021 Glucose blood reagent strip Jamal Levine MD Work Phone: Start: 09-28-2021 Glucose blood reagen t strip Jamal Levine MD Work Phone: Start: 09-28-2021 End: 09-28-2021 Basic metabolic panel calcium total Mi Giron Sra, MD Work Phone: Start: 09-28-2021 End: 09-28-2021 Glucose blood reagent strip Jamal Levine MD Work Phone: Start: 09-28-2021 End: 09-28-2021 Culture bacterial quanttative colony count urine Mi Giron Sra, MD Work Phone: Start: 09-28-2021 Urnls dip stick/tabl et rgnt auto w/o microscopy Mi Giron Sra, MD Work Phone: Start: 09-28-2021 Blood gases any combination ph pco2 po2 co2 hco3 Tomer Lara MD Start: 09-28-2021 Radiologic exam ches t single view Mi Giron Sra, MD Work Phone: Start: 09-28-2021 End: 09-28-2021 Basic metabolic panel calcium total Mi Giron Sra, MD Work Phone: Start: 09-28-2021 CULTURE, BLOOD 1 [place] alex Giron Sra, MD Work Phone: Start: 09-28-2021 IMMATURE PLATELET FRACTION Mi Giron Sra, MD Work Phone: Start: 09-28-2021 Culture bacterial bl ood aerobic w/id isolates Mi Giron Sra, MD Work Phone: Plan of Treatment Date Care Activity Detail Author Start: 04-09-2031 DTaP,Tdap and Td Vaccines (2 - Td or Tdap) DTaP,Tdap and Td Vaccines (2 - Td or Tdap) [facility] Start: 04-09-2031 DTaP/Tdap/Td vaccine (2 - Td or Tdap) DTaP/Tdap/Td vaccine (2 - Td or Tdap) [facility] Start: 07-14-2025 Screening for malignant neoplasm of cervix Pap Smear [facility] Start: 07-13-2024 Adult BMI Screening Adult BMI Screen ing [facility] Start: 07-13-2024 Tobacco Screening Tobacco Screening [facility] Start: 06-05-2024 Depression Screening Depression Scre ening [facility] Start: 06-07-2023 Urine screening for protein Urine Microalbumin [facility] Start: 05-05-2023 COVID-19 Vaccine () COVID-19 Vaccine () [facility] Start: 05-05-2023 Influenza vaccination Influenza Vacc ine [facility] Start: 12-29-2021 Hemoglobin A1c measurement A1C test (Diabetic or Prediabetic) [facility] Start: 11-29-2021 COVID-19 Vaccine (3 - Booster for Pfizer series) COVID-19 Vaccine (3 - Booster for Pfizer series) [facility] Start: 05-05-2021 Influenza vaccination Flu vaccine (# 1) [facility] Start: 2009 Screening for malignant neoplasm of cervix [facility] Start: 2000 Screening for malignant neoplasm of cervix Pap smear [facility] Start: 1998 Hepatitis B vaccine (1 of 3 - Risk 3-dose series) Hepatitis B vaccine (1 of 3 - Risk 3-dose series) [facility] Start: 1997 Adult BMI Follow Up Plan Adult BMI Follow Up Plan [facility] Start: 1997 Diabetic foot examination Diabetic Foot Exam [facility] Start: 1997 Diabetic retinal exam Diabetic retin al exam [facility] Start: 1997 Urine screening for protein Diabetic microalbuminuria test [facility] Start: 1994 HIV screening HIV screen [facility] Start: 1991 Depression Screen Depression Screen [facility] Start: 1989 Diabetic foot examination Diabetic foot exam [facility] Start: 1989 Lipid panel Lipid screen [facility] Start: 1985 Pneumococcal 0-64 years Vaccine (1 of 2 - PPSV23) Pneumococcal 0-64 years Vaccine (1 of 2 - PPSV23) [facility] Start: 1979 Glaucoma screening Diabetic Op hthalmology Exam [facility] Start: 1979 Hepatitis C screening Hepatitis C sc reen [facility] CBC W Auto Differential panel - Blood CBC auto differential Lab Routine Daily until discontinued starting 09/29/2021, 4 completed [facility] Phone: Comment on above: Daily until disconti nued starting 09/29/2021, 4 completed Culture, Anaerobic a nd Aerobic Culture, Anaerobic and Aerobic Microbiology [facility] Label Print 09/30/2021 9:50 AM EST [facility] Phone: Glucose [Mass/volume ] in Serum or Plasma POCT glucose Point of Care Testing Routine 4X Daily (AC & HS) until discontinued starting 09/29/2021 [facility] Phone: Comment on above: 4X Daily (AC & HS) u ntil discontinued starting 09/29/2021 End: 10-01-2021 Initiate RT Protocol Initiate RT Protocol Respiratory Care Routine Continuous until discontinued starting 10/01/2021 [facility] Phone: Comment on above: Continuous until dis continued starting 10/01/2021 Oxygen therapy [Minimum Data Set] Initiate Oxygen Therapy Protocol Respiratory Care Routine Daily until discontinued starting 09/28/2021 [facility] Phone: Comment on above: Daily until disconti nued starting 09/28/2021 End: 10-01-2021 PERIPHERAL BLOOD SMEAR, PATH REVIEW [facility] Phone: Comment on above: One Time for 1 Occur rences starting 10/01/2021 until 10/01/2021 Phosphate [Mass/volume] in Serum or Plasma Phosphorus Lab STAT Tomorrow AM until discontinued starting 10/01/2021, 3 completed [facility] Phone: Comment on above: Tomorrow AM until di scontinued starting 10/01/2021, 3 completed End: 09-29-2021 PREVIOUS SPECIMEN [facility] Phone: Comment on above: Once for 1 Occurrenc es starting 09/29/2021 until 09/29/2021 End: 09-30-2021 PREVIOUS SPECIMEN [facility] Phone: Comment on above: Once for 1 Occurrenc es starting 09/30/2021 until 09/30/2021 Respiratory care evaluation only Respiratory care evaluation only Respiratory Care Routine As Needed until discontinued starting 10/01/2021 [facility] Phone: Comment on above: As Needed until disc ontinued starting 10/01/2021 End: 09-28-2021 Wound ostomy eval and treat Wound ostomy eval and treat Wound Ostomy Routine One Time for 1 Occurrences starting 09/28/2021 until 09/28/2021 [facility] Phone: Comment on above: One Time for 1 Occur rences starting 09/28/2021 until 09/28/2021 Immunizations Immunization Date Immunization Notes Care Provider Fa shaun 04-09-2021 tetanus toxoid, redu ajay diphtheria toxoid, and acellular pertussis vaccine, adsorbed Bethanie SEAT 4a 06-15-2020 influenza virus vacc ine, unspecified formulation [facility] Payers Date Payer Category Payer Medicaid MEDICAID [facility] EDICAID [id number] 2017-Present [phone] [address] [place] [address] [id number] 1979 Unknown [id number] 1979 Unknown [id number] 1979 Unknown [id number] 1979 Unknown [id number] 1979 Unknown [id number] 1979 Unknown [id number] 1979 Unknown [id number] [id number] 1979 Unknown [id number] [id number] 1979 Unknown [id number] [id number] 1979 Unknown [id number] [id number] 1979 Unknown [id number] [id number] 1979 Unknown [id number] 1979 Unknown [id number] [id number] 1979 Unknown [id number] 1960 Medicaid [id number] Social History Date Type Detail Facility Start: 09-29-2021 End: 07-13-2023 Tobacco smoking status [facility] Never smoked tobacco [facility] Phone: Start: 09-29-2021 End: 07-13-2023 Tobacco use and exposure Smokeless tobacco non-user [facility] Phone: Start: 09-29-2021 Alcohol intake Lifetime non-d david (finding) [facility] Phone: Start: 1980 Sex Assigned At [facility] Work Phone: Start: 07-13-2023 Alcohol intake Current drinke r of alcohol (finding) [facility] Start: 06-05-2023 End: 07-13-2023 History of Social function [facility] Start: 06-05-2023 End: 07-13-2023 Social connection and isolation panel [facility] Do you belong to any clubs or organizations such as confucianism groups, unions, fraBow & Drape or athletic groups, or school groups? No [facility] Are you now , , , , never or living with a partner? [facility] How often to you hav e a drink containing alcohol? Never [facility] How many standard dr inks containing alcohol do you have on a typical day? Patient does not drink [facility] Do you feel stress - tense, restless, nervous, or anxious, or unable to sleep at night because your mind is troubled all the time - these days [OSQ] Only a little [facility] Start: 03-01-2019 Alcohol Comment occasionally-o nce a month [facility] Goals Date Patient Goal Desired Activity /State Personal health goal Comment on above: Formatting of this n ote might be different from the original. Evaluation of progress towards goal: Home with family support. Clinical Notes 09-29-2021 to 09-26-2023 Bethanie Loredo - 09/11/2023 2:30 PM Sam Serna DO - 10/03/2021 12:57 PM Alejo Rivera MD - 10/03/2021 12:56 PM Della Phelan RN - 10/02/2021 3:55 PM Jenny Lopes - HEIKE Note Date & Type Note Facility 09-26-2023 Note [id number] Note [id number]23 Note [facility] SURGERY Clinical Discharge Summary PERSON INFORMATION Name YAMILA LOZADA Age 43 Years 1980 Sex FEMALE Language Lithuanian PCP DIAZ BETTS Marital Status Phone Med Service Ambulatory Surgery Acct# Arrival 09/25/2023 06:07:34 Visit Reason Surgery- Left carpal tunnel release Acuity LOS 018 22:07 Address: [facility] [address] [facility] [id number] Comment: PROVIDER INFORMATION VITALS INFORMATION Vital Sign Triage Latest Temp Oral Temp Temporal Temp Intravascular Temp Axillary Temp Rectal 02 Sat 98 % 97 % Respiratory Rate Peripheral Pulse Rate Apical Heart Rate Blood Pressure / 93 mmHg / 75 mmHg Comment: MEDICAL INFORMATION Allergy Info: Bactrim Prescriptions Given: atorvastatin (atorvastatin 40 mg oral tablet) 1 tab(s) Oral (given by mouth) every day. buPROPion (buPROPion 300 mg/24 hours (XL) oral tablet, extended release) 1 tab(s) Oral (given by mouth) every day. dulaglutide (Trulicity Pen 0.75 mg/0.5 mL subcutaneous solution) 0.5 Milliliter Subcutaneous (under the skin) every week. insulin aspart (NovoLOG FlexPen 100 units/mL injectable solution) sliding scale Subcutaneous (under the skin) 2 times a day (scheduled). insulin glargine (Lantus 100 units/mL subcutaneous solution) 15 Subcutaneous (under the skin) every day. lamoTRIgine (lamoTRIgine 200 mg oral tablet, extended release) 1 tab(s) Oral (given by mouth) every day. nabumetone (nabumetone 500 mg oral tablet) 2 tab(s) Oral (given by mouth) 2 times a day (scheduled). oxyBUTYnin (oxybutynin 15 mg/24 hr oral tablet, extended release) 1 tab(s) Oral (given by mouth) every day. pantoprazole (pantoprazole 40 mg oral delayed release tablet) 1 tab(s) Oral (given by mouth) every day. pioglitazone (pioglitazone 45 mg oral tablet) 1 tab(s) Oral (given by mouth) every day. prazosin (prazosin 2 mg oral capsule) 1 tab(s) Oral (given by mouth) every day. sertraline (sertraline 100 mg oral tablet) 1 tab(s) Oral (given by mouth) every day. Medication List: Medications to Continue That Have Not Changed Other Medications atorvastatin (atorvastatin 40 mg oral tablet) 1 tab(s) Oral (given by mouth) every day. buPROPion (buPROPion 300 mg/24 hours (XL) oral tablet, extended release) 1 tab(s) Oral (given by mouth) every day. dulaglutide (Trulicity Pen 0.75 mg/0.5 mL subcutaneous solution) 0.5 Milliliter Subcutaneous (under the skin) every week. insulin aspart (NovoLOG FlexPen 100 units/mL injectable solution) sliding scale Subcutaneous (under the skin) 2 times a day (scheduled). insulin glargine (Lantus 100 units/mL subcutaneous solution) 15 Subcutaneous (under the skin) every day. lamoTRIgine (lamoTRIgine 200 mg oral tablet, extended release) 1 tab(s) Oral (given by mouth) every day. nabumetone (nabumetone 500 mg oral tablet) 2 tab(s) Oral (given by mouth) 2 times a day (scheduled). oxyBUTYnin (oxybutynin 15 mg/24 hr oral tablet, extended release) 1 tab(s) Oral (given by mouth) every day. pantoprazole (pantoprazole 40 mg oral delayed release tablet) 1 tab(s) Oral (given by mouth) every day. pioglitazone (pioglitazone 45 mg oral tablet) 1 tab(s) Oral (given by mouth) every day. prazosin (prazosin 2 mg oral capsule) 1 tab(s) Oral (given by mouth) every day. sertraline (sertraline 100 mg oral tablet) 1 tab(s) Oral (given by mouth) every day. Medications to Continue That Have Not Changed Other Medications atorvastatin (atorvastatin 40 mg oral tablet) 1 tab(s) Oral (given by mouth) every day. buPROPion (buPROPion 300 mg/24 hours (XL) oral tablet, extended release) 1 tab(s) Oral (given by mouth) every day. dulaglutide (Trulicity Pen 0.75 mg/0.5 mL subcutaneous solution) 0.5 Milliliter Subcutaneous (under the skin) every week. insulin aspart (NovoLOG FlexPen 100 units/mL injectable solution) sliding scale Subcutaneous (under the skin) 2 times a day (scheduled). insulin glargine (Lantus 100 units/mL subcutaneous solution) 15 Subcutaneous (under the skin) every day. lamoTRIgine (lamoTRIgine 200 mg oral tablet, extended release) 1 tab(s) Oral (given by mouth) every day. nabumetone (nabumetone 500 mg oral tablet) 2 tab(s) Oral (given by mouth) 2 times a day (scheduled). oxyBUTYnin (oxybutynin 15 mg/24 hr oral tablet, extended release) 1 tab(s) Oral (given by mouth) every day. pantoprazole (pantoprazole 40 mg oral delayed release tablet) 1 tab(s) Oral (given by mouth) every day. pioglitazone (pioglitazone 45 mg oral tablet) 1 tab(s) Oral (given by mouth) every day. prazosin (prazosin 2 mg oral capsule) 1 tab(s) Oral (given by mouth) every day. sertraline (sertraline 100 mg oral tablet) 1 tab(s) Oral (given by mouth) every day. Medications to Continue That Have Not Changed Other Medications atorvastatin (atorvastatin 40 mg oral tablet) 1 tab(s) Oral (given by mouth) every day. buPROPion (buPROPion 300 mg/24 hours (XL) oral tablet, extended release) 1 tab(s) Oral (given by mouth) every day. dulagluti (more content not included)... [facility] 09-25-2023 Note Procedure: Decompres maria teresa of median nerve left wrist with release of carpal canal Pre Op Diagnosis: Carpal tunnel syndrome left Post Op Diagnosis: Carpal tunnel syndrome left Surgeon: Dr. Aldo Miller, Anesthesia: MAC local Indication for Surgery: The patient had symptoms of carpal tunnel syndrome. There was evidence of progression. We discussed surgical and nonsurgical alternatives and the risks and benefits of each and the chances for success / failure. I recommended to proceed with surgery and the patient requested the same. Findings: The median nerve was noted to be present and intact within the carpal canal. The carpal canal/tunnel was stenotic Blood Loss: Scant Specimen: None Procedure Summary: The upper extremity was sterilely prepped and draped in usual fashion. A timeout was taken in the operating room. After administration of conscious sedation I infiltrated the incision site with 1% lidocaine with epinephrine. A longitudinal incision was made over the carpal tunnel dissection was carried down beyond the palmaris longus and down to the transverse carpal ligament. Transverse carpal ligament was incised with a 15 blade and then released proximally and distally with a pair of Vargas scissors. I made sure that the nerve was completely decompressed as it exited the distal volar forearm fascia and traveled through the carpal tunnel and into the hand. The wound was irrigated with copious amounts sterile saline and the skin was closed with nylon suture. Adaptic sterile dressings and an Marco A bandage were applied with the thumb in apposition Complications: None [Electronically Signed on: 09/25/2023 08:41 EST] Arianna Miller DO [Verified on: 09/25/2023 08:41 EST] Arianna Miller DO [facility] 09-11-2023 History of Present illness Narrative 2nd attempt to contact referring office for most recent office notes and testing documented in this encounter [facility] 12-07-2022 Note Attestation signed by Robson Paz MD at 12/07/2022 5:39 PM I personally saw and examined the patient on the same date of service as resident/fellow . I discussed the findings and therapeutic plan with the resident/fellow . I agree with the documentation, except for any edits/updates below. Teaching Physician's Revisions: Orthopedic Surgery Subjective 11/21/2022 Ulnar Nerve Decompression - Left In situ 12/07/22 Doing well thus far after surgery. Neurologic symptoms have improved significantly with surgery. Incision gapped slightly but has nice granulation tissue present Patient History Past Surgical History: Procedure Laterality Date SHOULDER SURGERY Left TUBAL LIGATION ULNAR NERVE REPAIR Left 11/21/2022 decompression Past Medical History: Diagnosis Date Anxiety Diabetes mellitus (CMS/HCC) Objective Exam: - Incision with slight gapping and granulation tissue present, no evidence of infection - Reasonable post-surgical ROM, swelling, and tenderness - Sensation grossly intact distally - Brisk capillary refill Assessment/Plan Yamila Lozada is a 42 y.o. year old female s/p Ulnar Nerve Decompression - Left (11/21/2022) - Patient doing well after surgery - Patient will monitor incision for any signs of infection, no need for antibiotics at this point but they will contact clinic if there are any issues - Return to clinic as needed Ousmane Perez MD Orthopedic Surgery, PGY-5 Pager: [phone] 12/07/22 11:51 AM By using the attestations below, the signing clinician agrees that I have read and verify that the documentation has been personally reviewed by me and ensure that the documentation accurately reflects the encounter. GC: I personally saw this patient on the day of the encounter, performed the timmons portion(s) of the service and participated in the management and confirm the resident's documentation. Please note there may be an additional personal documentation from me. [facility] 11-21-2022 Note Patient: Yamila Olvera or Procedure Summary Date: 11/21/22 Room / Location: [facility] OR [address] [place] [address] OR Anesthesia Start: 1047 Anesthesia Stop: 1144 Procedure: ULNAR NERVE DECOMPRESSION (Left: Forearm) Diagnosis: Cubital tunnel syndrome on left (Cubital tunnel syndrome on left [G56.22]) Surgeons: Robson Paz MD Responsible Provider: Paul Smith MD Anesthesia Type: MAC ASA Status: 3 Anesthesia Type: MAC Vitals Value Taken Time BP 166/79 11/21/22 1320 Temp 36 ???C (96.8 ???F) 11/21/22 1141 Pulse 84 11/21/22 1320 Resp 14 11/21/22 1320 SpO2 100 % 11/21/22 1320 Anesthesia Post Evaluation Patient location during evaluation: PACU Patient participation: complete - patient participated Level of consciousness: awake and alert Pain management: adequate Airway patency: patent Cardiovascular status: acceptable Respiratory status: acceptable Hydration status: acceptable Comments: Pt acceptable for discharge from PACU There were no known notable events for this encounter. [facility] 11-21-2022 Note Patient: Yamila Olvera or Procedure Information Anesthesia Start Date/Time: 11/21/221046 Procedure: ULNAR NERVE DECOMPRESSION (Left: Forearm) Location: [facility] OR [address] [place] [address] OR Surgeons: Robson Paz MD Relevant Problems Anesthesia (-) History of anesthesia complications Endo (+) Diabetes mellitus, type 2 (CMS/HCC) Nervous (+) Cubital tunnel syndrome on left Endocrine/Metabolic (+) Morbid obesity (CMS/HCC) Clinical information reviewed: Tobacco Allergies Meds Problems Med Hx Surg Hx Fam Hx Soc Hx Physical Exam Airway Mallampati: III TM distance: >3 FB Neck ROM: full Cardiovascular Rhythm: regular Rate: normal Dental Pulmonary Breath sounds clear to auscultation Abdominal Anesthesia Plan ASA 3 MAC (Plan Monitored Anesthesia Care (MAC) with backup general anesthesia if needed. Discussed risks of peripheral nerve block with the patient, specifically including possible bleeding, infection, temporary or permanent neve damage. Patient understands these risks and is willing to proceed with the nerve block. ) intravenous induction Anesthetic plan and risks discussed with patient. Plan discussed with CAA. Additional Equipment Requests [facility] 11-21-2022 Note Patient: Yamila Olvera or Procedure Summary Date: 11/21/22 Room / Location: [facility] OR [address] [place] [address] OR Anesthesia Start: 1046 Anesthesia Stop: Procedure: ULNAR NERVE DECOMPRESSION (Left: Forearm) Diagnosis: Cubital tunnel syndrome on left (Cubital tunnel syndrome on left [G56.22]) Surgeons: Robson Paz MD Responsible Provider: Paul Smith MD Anesthesia Type: MAC ASA Status: Not recorded Anesthesia Post Transport [facility]: face mask Oxygen Flow (L/min): 8 Patient Monitor: direct observation Transport: uneventful Patient condition is: stable [facility] 11-21-2022 Note Peripheral Block Patient location during procedure: pre-op Start time: 11/21/2022 10:15 AM End time: 11/21/2022 10:30 AM Reason for block: primary anesthetic and at surgeon's request Staffing Performed: resident/RFID ANALYST/MARCY Anesthesiologist: Paul Smith MD Resident/RFID ANALYST: Mike Calloway MD Preanesthetic Checklist Completed: patient identified, IV checked, site marked, risks and benefits discussed, surgical consent, monitors and equipment checked, pre-op evaluation and timeout performed Peripheral Block Patient position: supine Prep: ChloraPrep Patient monitoring: heart rate and continuous pulse ox Block type: supraclavicular brachial plexus Laterality: left Injection technique: single-shot Guidance: ultrasound guided Needle Needle type: Rachele Needle gauge: 22 G Needle length: 2 in Needle localization: ultrasound guidance Medications Administered Bupivacaine HCl (Marcaine) 0.5 % (5 mg/mL) injection, 100 mg midazolam (VERSED) IV, 2 mg fentaNYL (SUBLIMAZE) IV, 50 mcg Assessment Injection assessment: negative aspiration for heme, no paresthesia on injection, incremental injection and local visualized surrounding nerve on ultrasound Paresthesia pain: none Heart rate change: no Slow fractionated injection: yes [facility] 11-04-2022 Note Attestation signed by Robson Paz MD at 11/08/2022 2:35 PM I personally saw and examined the patient on the same date of service as resident/fellow . I discussed the findings and therapeutic plan with the resident/fellow . I agree with the documentation, except for any edits/updates below. Teaching Physician's Revisions: Subjective Chief complaint: Chief Complaint Patient presents with Left Arm - Pain 11/04/22 Yamila Lozada is a 42 y.o. year old [id number] female presenting for evaluation of left hand pain/numbness. Patient states that the numbness and pain symptoms in her hand been going on for approximately 1 year. She localizes this pain to the small finger, ring finger, long finger. States that activity makes this pain or numbness worse. Patient has tried physical therapy, Occupational Therapy, and daytime/nighttime splinting with little to no relief of her pain. Patient has not tried any procedural or surgical intervention. However, patient states that she was diagnosed with frozen shoulder a little over a year ago and received a manipulation under anesthesia. This did not improve her hand and wrist symptoms. Patient was told by another orthopedic provider that she may have cubital tunnel syndrome. EMG/NCS studies were performed 2022 which revealed prolonged latency of the left ulnar sensory nerve with diminished proximal amplitudes of the left ulnar motor nerve and associated slowing conduction velocities. Denies numbness, tingling, and weakness of the right hand Previous Treatments: As per HPI ROS: Denies fevers, chills, and other constitutional symptoms. Denies shortness of breath. Patient History History reviewed. No pertinent surgical history. Past Medical History: Diagnosis Date Diabetes mellitus ([facility]) Objective General: Body mass index is 41.38 kg/m???. There were no vitals filed for this visit. No acute distress, comfortable Respiratory: Unlabored breathing with normal rate, no cough Cardiovascular: Warm well perfused extremities Psych: Appropriate mood behavior Left Hand: Inspection- no ecchymosis, no edema, no effusion Thumb: normal A1 carina and AROM, Index finger: normal A1 carina and AROM, Long finger: normal A1 carina and AROM, Ring finger: normal A1 carina and AROM, and Small finger: normal A1 carina and AROM Strength: media analyst 5/5, thumb 5/5, interossei 5/5 Sensation: intact over median, ulnar, and radial nerve distributions. Tinel (-) at carpal tunnel Carpal compression test (-) Tayla's test (-) Tinel (+) at cubital tunnel. Positive Froment's sign. Positive Wartenberg's sign. Positive shoulder internal rotation test. Positive elbow flexion test. Cardiovascular: Well-perfused digits Imaging: No imaging performed today in clinic. EMG/NCS studies performed at outside facility. Results described above. Assessment/Plan Yamila Lozada is a 42 y.o. year old female with Cubital tunnel syndrome on left Surgical interventions including: Cubital tunnel release with/without ulnar nerve transposition -Given patient history, physical exam, and other diagnostic findings, patient likely has moderate to severe cubital tunnel syndrome - Instructed patient that it may take multiple months for her to achieve a full recovery with no symptoms given the severity of her current condition - Patient expressed good understanding of the risk, benefits, and alternatives to surgical treatment, patient states that she would like to proceed with surgical intervention - Instructed patient that our surgical scrub tech reach out regarding future surgical date - Surgery will be performed under regional anesthesia -Return to clinic for surgical intervention -Call the orthopedic office any questions or concerns Michael Ward MD Orthopedic Surgery Resident Physician Pager: [phone] 11/04/22 12:35 PM By using the attestations below, the signing clinician agrees that I have read and verify that the documentation has been personally reviewed by me and ensure that the documentation accurately reflects the encounter. GC: I personally saw this patient on the day of the encounter, performed the timmons portion(s) of the service and participated in the management and confirm the resident's documentation. Please note there may be an additional personal documentation from me. [facility] 10-03-2021 History of Present illness Narrative Images from the original note were not included. [facility] Office: [phone] Hemal Charles DO, Steve Raza DO, Costa Cai DO, Gallito Lino DO, Natalee Negrete MD, Coreen Bryant MD, Shruti Bautista MD, Zulay Bueno MD, Priya Paul MD, Kevin Collins MD, Lyndsey Galindo MD, Morro Overton DO, Guido Serna DO, Rakel Aquino MD, Libby Samuel DO, Maycol Gomez MD, Kalyan Corbett MD, Shahzad Faria MD, Cee Casarez MD, Donavan Richardson MD, Autumn David, ENGINEER STEAM, Laurie Hernandez, ENGINEER STEAM, Veronica Garcia, ENGINEER STEAM, Ada Rascon, COLLEGE PROFESSOR, Jamal Soto, ENGINEER STEAM, Shellie Patton, ENGINEER STEAM, Dahiana Albarado, ENGINEER STEAM, Zandra Holly, ENGINEER STEAM, Andi Mcdonald, ENGINEER STEAM, Terrance Smalls PA-C, Dahiana Vyas, KIMBERLY, Christina Tanner, KIMBERLY, Karyna Hernandez, LUCIANO, Corina Bedoya, ENGINEER STEAM, Amber Dewey, ENGINEER STEAM, Archana Lockhart, ENGINEER STEAM, Emili Stapleton, ENGINEER STEAM, Nina Anthony, ENGINEER STEAM [facility] IN-PATIENT SERVICE [facility] Progress Note 10/03/2021 12:57 PM Name: Yamila Lozada Acct: [id number] Room: [address] [place] [address] Day: 5 Admit Date: 09/28/2021 9:38 AM PCP: Diaz Betts MD Code Status: Full Code Subjective: C/C: DKA Interval History Status: unchanged. Patient seen and examined, feeling better today. Discharge, plan for transfer to be Brief History: Yamila Lozada is a 41 year old female who [facility]. Her presentation to ED on 09/26/21 showed her initial blood sugar of 816 with a beta-hydroxybutyrate 11.24, anion gap >25 with (+) ketones in urine. She was started on DKA protocol with bicarb drip, IVF and insulin drip and was transferred to [facility] on 09/28/21 for ICU admission and further treatment. In addition she had an elevated D-dimer. CTPE (-) for PE but concerning for RML pulmonary nodule and ill-defined ground glass opacification in the RUL concerning for PNA. She did have episodes of vomiting which have subsided. She was bridged to lantus insulin and insulin drip was discontinued. Transfer to med-surg bed 09/29/21 Review of Systems: Constitutional: negative for chills, fevers, sweats Respiratory: negative for cough, dyspnea on exertion, shortness of breath, wheezing Cardiovascular: negative for chest pain, chest pressure/discomfort, lower extremity edema, palpitations Gastrointestinal: negative for abdominal pain, constipation, diarrhea, nausea, vomiting Neurological: negative for dizziness, headache Medications: Allergies: Allergies Allergen Reactions Sulfamethoxazole-Trimethoprim Itching Current Meds: Scheduled Meds: insulin glargine 20 Units SubCUTAneous Nightly insulin lispro 0-18 Units SubCUTAneous 4x Daily AC & HS heparin (porcine) 5,000 Units SubCUTAneous 3 times per day Continuous Infusions: dextrose dextrose 5 % and 0.45 % NaCl Stopped (09/29/21 0712) PRN Meds: albuterol, loperamide, potassium chloride OR potassium alternative oral replacement OR potassium chloride, glucose, dextrose, glucagon (rDNA), dextrose, acetaminophen, dextrose, magnesium sulfate, sodium phosphate IVPB OR sodium phosphate IVPB OR sodium phosphate IVPB, polyethylene glycol, dextrose 5 % and 0.45 % NaCl, ondansetron Data: Past Medical History: has a past medical history of Developmental delay, DM (diabetes mellitus), type 1 (HCC), GERD (gastroesophageal reflux disease), HLD (hyperlipidemia), and Lung nodule. Social History: reports that she has never smoked. She has never used smokeless tobacco. She reports that she does not drink alcohol and does not use drugs. Family History: Family History Problem Relation Age of Onset No Known Problems Mother Vitals: BP 126/80 Pulse 85 Temp 97.5 F (36.4 C) (Temporal) Resp 16 Ht 5' (1.524 m) Wt 223 lb 3.2 oz (101.2 kg) SpO2 97% BMI 43.59 kg/m Temp (24hrs), Av.7 F (36.5 C), Min:97.3 F (36.3 C), Max:98.1 F (36.7 C) Recent Labs 10/02/21 1751 10/02/21 2105 10/03/21 0643 10/03/21 1108 POCGLU 131* 200* 89 236* I/O (24Hr): Intake/Output Summary (Last 24 hours) at 10/03/2021 1257 Last data filed at 10/03/2021 0244 Gross per 24 hour Intake 750 ml Output Net 750 ml Labs: Hematology: Recent Labs 10/01/21 0234 10/01/21 0234 10/01/21 0859 10/02/21 0542 10/03/21 0318 WBC 3.9 < > 4.8 5.2 5.5 RBC 3.38* < > 3.75* 3.62* 4.02 HGB 10.0* < > 10.9* 10.4* 11.5* HCT 28.5* < > 32.2* 31.2* 34.4* MCV 84.3 < > 85.9 86.2 85.6 MCH 29.6 < > 29.1 28.7 28.6 MCHC 35.1* < > 33.9 33.3 33.4 RDW 13.9 < > 13.8 13.7 13.5 PLT See Reflexed IPF Result < > 141 92* See Reflexed IPF Result MPV NOT REPORTED < > 10.4 9.0 NOT REPORTED INR 1.3 -- 1.1 -- -- < > = values in this interval not displayed. Chemistry: Recent Labs 09/30/21 1446 09/30/21 2047 10/01/21 0234 10/01/21 0234 10/01/21 0859 10/01/21 1507 10/02/21 0542 10/02/21 0932 10/03/21 0318 NA 145* < > 138 -- < > 135 -- 141 144 K 3.4* < > 3.5* -- < > 3.4* -- 3.6* 3.7 CL 119* < > 115* -- < > 108* -- 109* 111* CO2 13* < > 13* -- < > 19* -- 23 19* GLUCOSE 162* -- 184* -- -- -- -- 109* 105* BUN 35* -- 31* -- -- -- -- 22* 19 CREATININE 2.05* -- 1.77* -- -- -- -- 1.46* 1.31* MG 1.8 -- 2.0 -- -- -- -- -- -- ANIONGAP 13 < > 10 -- < > 8* -- 9 14 LABGLOM 27* -- 31* -- -- -- -- 39* 45* GFRAA 32* -- 38* -- -- -- -- 48* 54* CALCIUM 8.9 -- 8.2* -- -- -- -- 8.7 8.3* PHOS -- -- 1.8* < > -- -- 3.0 3.2 4.2 < > = values in this interval not displayed. Recent Labs 10/01/21 0234 10/01/21 0825 10/01/21 0859 10/01/21 1119 10/02/21 0806 10/02/21 0932 10/02/21 1114 10/02/21 1751 10/02/21 2105 10/03/21 0643 10/03/21 1108 PROT 4.6* -- -- -- -- -- -- -- -- -- -- LABALBU 1.9* -- -- -- -- 2.5* -- -- -- -- -- AST 12 -- -- -- -- -- -- -- -- -- -- ALT 11 -- -- -- -- -- -- -- -- -- -- LDH -- -- 233* -- -- -- -- -- -- -- -- ALKPHOS 69 -- -- -- -- -- -- -- -- -- -- BILITOT <0.10* -- 0.17* -- -- -- -- -- -- -- -- BILIDIR -- -- 0.08 -- -- -- -- -- -- -- -- POCGLU -- < > -- < > 119* -- 122* 131* 200* 89 236* < > = values in this interval not displayed. ABG: Lab Results Component Value Date FIO2 INFORMATION NOT PROVIDED 09/30/2021 Lab Results Component Value Date/Time SPECIAL NOT REPORTED 09/30/2021 09:50 AM Lab Results Component Value Date/Time CULTURE NO GROWTH 2 DAYS 09/30/2021 09:50 AM Radiology: XR CHEST PORTABLE Result Date: 09/28/2021 Bilateral scattered pulmonary opacities consistent with multifocal airspace disease/pneumonia. No extrapleural air. Physical Examination: General appearance: alert, cooperative and no distress Mental Status: oriented to person, place and time and normal affect Lungs: clear to auscultation bilaterally, normal effort Heart: regular rate and rhythm, no murmur Abdomen: soft, nontender, nondistended, normal bowel sounds, no masses, hepatomegaly, splenomegaly Extremities: no edema, redness, tenderness in the calves. Skin: no gross lesions, rashes, induration. There is a known ulceration on the medial portion of the right antecubital fossa with an overlying clean, dry and intact dressing. Assessment: Hospital Problems Last Modified POA * (Principal) DKA, type 1, not at goal (HCC) 09/29/2021 Yes Pneumonia due to infectious organism 09/29/2021 Yes Mental developmental delay 09/29/2021 Yes Acute kidney injury (DREW) with acute tubular necrosis (ATN) ([facility]) 09/30/2021 Yes High anion gap metabolic acidosis 09/30/2021 Yes Plan: DKA -No longer in DKA, bicarb likely secondary to diarrhea. Acute diarrhea stool panel and C. difficile are negative, diarrhea is improved Metabolic acidosis likely secondary to diarrhea Acute kidney injury with ATN -Discontinue bicarb drip CAP -Completed antibiotics Right arm ulceration -Wound care Thrombocytopenia -Improved today, hemolysis work-up negative 13 mm pulmonary nodule noted on CT from [facility]. Will need repeat CT in 3 months based on Fleischner criteria Guido Serna DO 10/03/2021 12:57 PM PULMONARY & CRITICAL CARE MEDICINE PROGRESS NOTE Patient: Yamila Lozada Admit date: 09/28/2021 Primary Care Physician: Diaz Betts MD Consulting Physician: Guido Serna DO CODE Status: Full Code LOS: 5 SUBJECTIVE Chief Complaint/ Reason for consult: Pneumonia Hospital Course: The patient is a 41 y.o. female with past medical history of MRDD initially went to the [facility] for nausea, shivering, chills and altered mental status. Patient was found to have DKA with bilateral lower lobe pneumonia. CTA negative for PE but it showed 13 mm pulmonary nodule. Patient was transferred to [facility] for further care. In ICU she was treated with fluids and insulin infusion eventually was bridged with insulin. On the floor she is doing fine she denies any productive cough, chest pain, shortness of breath, fever, chills, abdominal pain, dizziness. On room air saturating well. Currently patient is being treated for community-acquired pneumonia with ceftriaxone and azithromycin. Of note she saw general surgeon on 09/24 for right arm abscess which was drained. For for drainage she was prescribed Augmentin by primary care. Interval Hx 10/03/2021 No acute events Wants inhaler Review Of Systems: Review of Systems Constitutional: Negative for chills. HENT: Negative. Eyes: Negative. Respiratory: Positive for cough. Negative for choking and chest tightness. Cardiovascular: Negative. Gastrointestinal: Negative. Endocrine: Negative. Genitourinary: Negative. Musculoskeletal: Negative. Skin: Negative. Neurological: Negative. Hematological: Negative. Psychiatric/Behavioral: Negative. OBJECTIVE PaO2/FiO2 RATIO: No results for input(s): POCPO2 in the last 72 hours. VITAL SIGNS: LAST: BP 126/80 Pulse 85 Temp 97.5 F (36.4 C) (Temporal) Resp 16 Ht 5' (1.524 m) Wt 223 lb 3.2 oz (101.2 kg) SpO2 97% BMI 43.59 kg/m 8-24 HR RANGE: TEMP Temp Av.7 F (36.5 C) Min: 97.3 F (36.3 C) Max: 98.1 F (36.7 C) BP Systolic (24hrs), Av , Min:126 , Max:146 Diastolic (24hrs), Av, Min:76, Max:90 PULSE Pulse Av.5 Min: 85 Max: 101 RR Resp Av Min: 16 Max: 16 O2 SAT SpO2 Av.5 % Min: 97 % Max: 100 % OXYGEN DELIVERY No data recorded Systemic Examination: Physical Exam - Head and neck atraumatic, normocephalic Lymph nodes-no cervical, supraclavicular lymphadenopathy Neck-no JVP elevation Lungs - Ventilating all lobes without any rales, rhonchi, wheezes or dullness. No bronchial breath sounds. Chest expansion equal bilaterally CVS- S1, S2 regular. No S3 no S4, no murmurs Abdomen-nontender, nondistended. Bowel sounds are present. No organomegaly Lower extremity-no edema Upper extremity-no edema Neurological-grossly normal cranial nerves. No overt motor deficit DATA REVIEW Medications: Current Inpatient Scheduled Meds: insulin glargine 20 Units SubCUTAneous Nightly insulin lispro 0-18 Units SubCUTAneous 4x Daily AC & HS heparin (porcine) 5,000 Units SubCUTAneous 3 times per day Continuous Infusions: dextrose dextrose 5 % and 0.45 % NaCl Stopped (09/29/21 0712) INPUT/OUTPUT: In: 750 [P.O.:750] Out: - Date 10/03/21 0000 - 10/03/212358 Shift 6108-2921 5291-5118 6752-8106 24 Hour Total INTAKE P.O.(mL/kg/hr) 360(0.4) 360 Shift Total(mL/kg) 360(3.6) 360(3.6) OUTPUT Shift Total(mL/kg) Weight (kg) 101.2 101.2 101.2 101.2 LABS: ABGs: No results for input(s): POCPH, POCPCO2, POCPO2, POCHCO3, [id number] in the last 72 hours. CBC: Recent Labs 10/01/21 0234 10/01/21 0859 10/02/21 0542 10/03/21 0318 WBC 3.9 4.8 5.2 5.5 HGB 10.0* 10.9* 10.4* 11.5* HCT 28.5* 32.2* 31.2* 34.4* MCV 84.3 85.9 86.2 85.6 PLT See Reflexed IPF Result 141 92* See Reflexed IPF Result LYMPHOPCT 37 -- 35 37 RBC 3.38* 3.75* 3.62* 4.02 MCH 29.6 29.1 28.7 28.6 MCHC 35.1* 33.9 33.3 33.4 RDW 13.9 13.8 13.7 13.5 CRP: No results for input(s): CRP in the last 72 hours. LDH: Recent Labs 10/01/21 0859 LDH 233* BMP: Recent Labs 09/30/21 1446 09/30/21 2047 10/01/21 0234 10/01/21 0859 10/01/21 1507 10/02/21 0542 10/02/21 0932 10/03/21 0318 NA 145* < > 138 137 135 -- 141 144 K 3.4* < > 3.5* 3.2* 3.4* -- 3.6* 3.7 CL 119* < > 115* 112* 108* -- 109* 111* CO2 13* < > 13* 16* 19* -- 23 19* BUN 35* -- 31* -- -- -- 22* 19 CREATININE 2.05* -- 1.77* -- -- -- 1.46* 1.31* GLUCOSE 162* -- 184* -- -- -- 109* 105* PHOS -- -- 1.8* -- -- 3.0 3.2 4.2 < > = values in this interval not displayed. Liver Function Test: Recent Labs 10/01/21 0234 10/01/21 0859 10/02/21 0932 PROT 4.6* -- -- LABALBU 1.9* -- 2.5* ALT 11 -- -- AST 12 -- -- ALKPHOS 69 -- -- BILITOT <0.10* 0.17* -- Coagulation Profile: Recent Labs 10/01/21 0234 10/01/21 0859 INR 1.3 1.1 PROTIME 13.8* 11.4 APTT -- 22.1 D-Dimer: No results for input(s): DDIMER in the last 72 hours. Lactic Acid: No results for input(s): LACTA in the last 72 hours. Cardiac Enzymes: No results for input(s): CKTOTAL, CKMB, CKMBINDEX, TROPONINI in the last 72 hours. Invalid input(s): TROPONIN, HSTROP BNP/ProBNP: No results for input(s): BNP, PROBNP in the last 72 hours. Triglycerides: No results for input(s): TRIG in the last 72 hours. Microbiology: Urine Culture: No components found for: CURINE Blood Culture: No components found for: CBLOOD, CFUNGUSBL Sputum Culture: No components found for: CSPUTUM Recent Labs 10/01/21 1341 10/01/21 1341 10/01/21 1648 SPECDESC .FECES < > .FECES CAMPYLOBPCR NEGATIVE: No Campylobacter spp. (jejuni or coli) DNA Detected -- -- SALMONELLAPC NEGATIVE: No Salmonella spp. DNA Detected -- -- SHIGAPCR NEGATIVE: No Shiga toxin-producing gene(s) Detected -- -- SHIGELLAPCR NEGATIVE: No Shigella spp. / EIEC DNA Detected -- -- < > = values in this interval not displayed. Recent Labs 10/01/21 1231 10/01/21 1341 10/01/21 1648 SPECDESC .NASOPHARYNGEAL SWAB .FECES .FECES Pathology: Radiology Reports: CT ABDOMEN PELVIS WO CONTRAST Additional Contrast? Oral Final Result 1. No acute process in the abdomen or pelvis. 2. Trace bilateral pleural fluid and mild bibasilar atelectasis. RECOMMENDATIONS: Unavailable XR CHEST PORTABLE Final Result Bilateral scattered pulmonary opacities consistent with multifocal airspace disease/pneumonia. No extrapleural air. Echocardiogram: No results found for this or any previous visit. ASSESSMENT AND PLAN Assessment: Principal Problem: DKA, type 1, not at goal (HCC) Active Problems: Pneumonia due to infectious organism Mental developmental delay Acute kidney injury (DREW) with acute tubular necrosis (ATN) (HCC) High anion gap metabolic acidosis Resolved Problems: * No resolved hospital problems. * Community-acquired pneumonia MRDD 13 mm lung nodule Plan: Ok to dc Follow-up outpatient with repeat CT scan in 3 months. Albuterol inhaler Please note that this chart was generated using voice recognition [employer] dictation software. Although every effort was made to ensure the accuracy of this automated behavioral health specialist, some errors in behavioral health specialist may have occurred. Spinning Lathe Operator Hydraulic spoke with pt's mother Jeanine in regards to patient's discharge. Jeanine states she knows how to perform the dressing on pt's arm and is comfortable doing so. Pt will need a ride home. Spinning Lathe Operator Hydraulic will reach out to case management for setting up a ride. Images from the original note were not included. [facility] Office: [phone] Hemal Charles DO, Steve Raza DO, Costa Cai DO, Gallito Lino DO, Natalee Negrete MD, Coreen Bryant MD, Shruti Bautista MD, Zulay Bueno MD, Priya Paul MD, Kevin Collins MD, Lyndsey Galindo MD, Morro Overton DO, Guido Serna DO, Rakel Aquino MD, Libby Samuel DO, Maycol Gomez MD, Kalyan Corbett MD, Shahzad Faria MD, Cee Casarez MD, Donavan Richardson MD, Autumn David, ENGINEER STEAM, Laurie Hernandez, ENGINEER STEAM, Veronica Garcia, ENGINEER STEAM, Ada Rascon, COLLEGE PROFESSOR, Jamal Soto, ENGINEER STEAM, Shellie Patton, ENGINEER STEAM, Dahiana Albarado, ENGINEER STEAM, Zandra Holly, ENGINEER STEAM, Andi Mcdonald, ENGINEER STEAM, Terrance Smalls, PA-C, Dahiana Vyas, DNP, Christina Tanner, DNP, Karyna Hernandez, ENGINEER STEAM, Corina Bedoya, ENGINEER STEAM, Amber Dewey, ENGINEER STEAM, Archana Lockhart, ENGINEER STEAM, Emili Stapleton, ENGINEER STEAM, Nina Anthony, ENGINEER STEAM [facility] IN-PATIENT SERVICE [facility] Progress Note 10/02/2021 1:51 PM Name: Yamila Lozada Acct: [id number] Room: 0161/0161-01 IP Day: 4 Admit Date: 09/28/2021 9:38 AM PCP: Diaz Betts MD Code Status: Full Code Subjective: C/C: DKA Interval History Status: unchanged. Diarrhea has improved today, discussed discharge which patient was agreeable with. Family will be able to help her with wound care, advise starting a decreased brace for her Lantus increase as needed. Brief History: Yamila Lozada is a 41 year old female who [facility]. Her presentation to ED on 09/26/21 showed her initial blood sugar of 816 with a beta-hydroxybutyrate 11.24, anion gap >25 with (+) ketones in urine. She was started on DKA protocol with bicarb drip, IVF and insulin drip and was transferred to [facility] on 09/28/21 for ICU admission and further treatment. In addition she had an elevated D-dimer. CTPE (-) for PE but concerning for RML pulmonary nodule and ill-defined ground glass opacification in the RUL concerning for PNA. She did have episodes of vomiting which have subsided. She was bridged to lantus insulin and insulin drip was discontinued. Transfer to [facility] bed 09/29/21 Review of Systems: Constitutional: negative for chills, fevers, sweats Respiratory: negative for cough, dyspnea on exertion, shortness of breath, wheezing Cardiovascular: negative for chest pain, chest pressure/discomfort, lower extremity edema, palpitations Gastrointestinal: negative for abdominal pain, constipation, diarrhea, nausea, vomiting Neurological: negative for dizziness, headache Medications: Allergies: Allergies Allergen Reactions Sulfamethoxazole-Trimethoprim Itching Current Meds: Scheduled Meds: insulin glargine 20 Units SubCUTAneous Nightly insulin lispro 0-18 Units SubCUTAneous 4x Daily AC & HS heparin (porcine) 5,000 Units SubCUTAneous 3 times per day Continuous Infusions: dextrose dextrose 5 % and 0.45 % NaCl Stopped (09/29/21 0712) PRN Meds: albuterol, loperamide, potassium chloride OR potassium alternative oral replacement OR potassium chloride, glucose, dextrose, glucagon (rDNA), dextrose, acetaminophen, dextrose, magnesium sulfate, sodium phosphate IVPB OR sodium phosphate IVPB OR sodium phosphate IVPB, polyethylene glycol, dextrose 5 % and 0.45 % NaCl, ondansetron Data: Past Medical History: has a past medical history of Developmental delay, DM (diabetes mellitus), type 1 (HCC), GERD (gastroesophageal reflux disease), HLD (hyperlipidemia), and Lung nodule. Social History: reports that she has never smoked. She has never used smokeless tobacco. She reports that she does not drink alcohol and does not use drugs. Family History: Family History Problem Relation Age of Onset No Known Problems Mother Vitals: BP 137/89 Pulse 81 Temp 97.6 F (36.4 C) (Oral) Resp 19 Ht 5' (1.524 m) Wt 223 lb 3.2 oz (101.2 kg) SpO2 98% BMI 43.59 kg/m Temp (24hrs), Av.2 F (36.8 C), Min:97.6 F (36.4 C), Max:98.8 F (37.1 C) Recent Labs 10/01/21 2018 10/02/21 0616 10/02/21 0806 10/02/21 1114 POCGLU 177* 135* 119* 122* I/O (24Hr): Intake/Output Summary (Last 24 hours) at 10/02/2021 1351 Last data filed at 10/02/2021 0613 Gross per 24 hour Intake 522 ml Output 400 ml Net 122 ml Labs: Hematology: Recent Labs 10/01/21 0234 10/01/21 0859 10/02/21 0542 WBC 3.9 4.8 5.2 RBC 3.38* 3.75* 3.62* HGB 10.0* 10.9* 10.4* HCT 28.5* 32.2* 31.2* MCV 84.3 85.9 86.2 MCH 29.6 29.1 28.7 MCHC 35.1* 33.9 33.3 RDW 13.9 13.8 13.7 PLT See Reflexed IPF Result 141 92* MPV NOT REPORTED 10.4 9.0 INR 1.3 1.1 -- Chemistry: Recent Labs 09/30/21 1446 09/30/21 2047 10/01/21 0234 10/01/21 0234 10/01/21 0859 10/01/21 1507 10/02/21 0542 10/02/21 0932 NA 145* < > 138 < > 137 135 -- 141 K 3.4* < > 3.5* < > 3.2* 3.4* -- 3.6* CL 119* < > 115* < > 112* 108* -- 109* CO2 13* < > 13* < > 16* 19* -- 23 GLUCOSE 162* -- 184* -- -- -- -- 109* BUN 35* -- 31* -- -- -- -- 22* CREATININE 2.05* -- 1.77* -- -- -- -- 1.46* MG 1.8 -- 2.0 -- -- -- -- -- ANIONGAP 13 < > 10 < > 9 8* -- 9 LABGLOM 27* -- 31* -- -- -- -- 39* GFRAA 32* -- 38* -- -- -- -- 48* CALCIUM 8.9 -- 8.2* -- -- -- -- 8.7 PHOS -- -- 1.8* -- -- -- 3.0 3.2 < > = values in this interval not displayed. Recent Labs 09/30/21 0612 09/30/21 0809 10/01/21 0234 10/01/21 0825 10/01/21 0859 10/01/21 1119 10/01/21 1638 10/01/21201710/02/21 0616 10/02/21 0806 10/02/21 0932 10/02/21 1114 PROT -- -- 4.6* -- -- -- -- -- -- -- -- -- LABALBU -- -- 1.9* -- -- -- -- -- -- -- 2.5* -- LABA1C 15.2* -- -- -- -- -- -- -- -- -- -- -- AST -- -- 12 -- -- -- -- -- -- -- -- -- ALT -- -- 11 -- -- -- -- -- -- -- -- -- LDH -- -- -- -- 233* -- -- -- -- -- -- -- ALKPHOS -- -- 69 -- -- -- -- -- -- -- -- -- BILITOT -- -- <0.10* -- 0.17* -- -- -- -- -- -- -- BILIDIR -- -- -- -- 0.08 -- -- -- -- -- -- -- POCGLU -- < > -- < > -- 225* 188* 177* 135* 119* -- 122* < > = values in this interval not displayed. ABG: Lab Results Component Value Date FIO2 INFORMATION NOT PROVIDED 09/30/2021 Lab Results Component Value Date/Time SPECIAL NOT REPORTED 09/30/2021 09:50 AM Lab Results Component Value Date/Time CULTURE NO GROWTH 1 DAY 09/30/2021 09:50 AM Radiology: XR CHEST PORTABLE Result Date: 09/28/2021 Bilateral scattered pulmonary opacities consistent with multifocal airspace disease/pneumonia. No extrapleural air. Physical Examination: General appearance: alert, cooperative and no distress Mental Status: oriented to person, place and time and normal affect Lungs: clear to auscultation bilaterally, normal effort Heart: regular rate and rhythm, no murmur Abdomen: soft, nontender, nondistended, normal bowel sounds, no masses, hepatomegaly, splenomegaly Extremities: no edema, redness, tenderness in the calves. Skin: no gross lesions, rashes, induration. There is a known ulceration on the medial portion of the right antecubital fossa with an overlying clean, dry and intact dressing. Assessment: Hospital Problems Last Modified POA * (Principal) DKA, type 1, not at goal (HCC) 09/29/2021 Yes Pneumonia due to infectious organism 09/29/2021 Yes Mental developmental delay 09/29/2021 Yes Acute kidney injury (DREW) with acute tubular necrosis (ATN) ([facility]) 09/30/2021 Yes High anion gap metabolic acidosis 09/30/2021 Yes Plan: DKA -No longer in DKA, bicarb likely secondary to diarrhea. Acute diarrhea stool panel and C. difficile are negative, diarrhea is improved Metabolic acidosis likely secondary to diarrhea Acute kidney injury with ATN -Discontinue bicarb drip CAP -Completed antibiotics Right arm ulceration -Wound care Thrombocytopenia -Improved today, hemolysis work-up negative 13 mm pulmonary nodule noted on CT from [facility]. Will need repeat CT in 3 months based on Fleischner criteria Guido Serna DO 10/02/2021 1:51 PM PULMONARY & CRITICAL CARE MEDICINE PROGRESS NOTE Patient: Yamila Lozada Admit date: 09/28/2021 Primary Care Physician: Diaz Betts MD Consulting Physician: Guido Serna DO CODE Status: Full Code LOS: 4 SUBJECTIVE Chief Complaint/ Reason for consult: Pneumonia Hospital Course: The patient is a 41 y.o. female with past medical history of MRDD initially went to the [facility] for nausea, shivering, chills and altered mental status. Patient was found to have DKA with bilateral lower lobe pneumonia. CTA negative for PE but it showed 13 mm pulmonary nodule. Patient was transferred to [facility] for further care. In ICU she was treated with fluids and insulin infusion eventually was bridged with insulin. On the floor she is doing fine she denies any productive cough, chest pain, shortness of breath, fever, chills, abdominal pain, dizziness. On room air saturating well. Currently patient is being treated for community-acquired pneumonia with ceftriaxone and azithromycin. Of note she saw general surgeon on 09/24 for right arm abscess which was drained. For for drainage she was prescribed Augmentin by primary care. Interval Hx Patient seen and examined. No acute issues overnight. Hemodynamically and vitally stable. Afebrile. Labs reviewed. Sleeping comfortably, denied any SOB, still having some diarrhea. Patient will need Ct as an outpatient for nodule. On bicarb Drip? Review Of Systems: Review of Systems Constitutional: Positive for chills. HENT: Negative. Eyes: Negative. Respiratory: Positive for chest tightness. Cardiovascular: Negative. Gastrointestinal: Negative. Endocrine: Negative. Genitourinary: Negative. Musculoskeletal: Negative. Skin: Negative. Neurological: Negative. Hematological: Negative. Psychiatric/Behavioral: Negative. OBJECTIVE PaO2/FiO2 RATIO: No results for input(s): POCPO2 in the last 72 hours. VITAL SIGNS: LAST: BP 137/89 Pulse 81 Temp 97.6 F (36.4 C) (Oral) Resp 19 Ht 5' (1.524 m) Wt 223 lb 3.2 oz (101.2 kg) SpO2 98% BMI 43.59 kg/m 8-24 HR RANGE: TEMP Temp Av.2 F (36.8 C) Min: 97.6 F (36.4 C) Max: 98.8 F (37.1 C) BP Systolic (24hrs), Av , Min:137 , Max:139 Diastolic (24hrs), Av, Min:89, Max:90 PULSE Pulse Av.5 Min: 81 Max: 86 RR No data recorded O2 SAT No data recorded OXYGEN DELIVERY No data recorded Systemic Examination: Physical Exam - Constitutional: Alert, cooperative and no distress. Mental Status: Oriented to person, place and time and normal affect. Lungs: Bilateral air entry present, lung poe clear. Normal effort. Heart: Regular rate and rhythm, no murmur. Abdomen: Soft, nontender, nondistended, normal bowel sounds. Extremities: No edema, redness, tenderness in the calves. Skin: Warm, dry, no gross lesions or rashes. DATA REVIEW Medications: Current Inpatient Scheduled Meds: insulin glargine 20 Units SubCUTAneous Nightly insulin lispro 0-18 Units SubCUTAneous 4x Daily AC & HS heparin (porcine) 5,000 Units SubCUTAneous 3 times per day Continuous Infusions: dextrose dextrose 5 % and 0.45 % NaCl Stopped (09/29/21 0712) INPUT/OUTPUT: In: 522 [I.V.:522] Out: 400 [Urine:400] Date 10/02/21 0000 - 10/02/212358 Shift 1968-0634 [id number] 0759-9779 24 Hour Total INTAKE I.V.(mL/kg) 522(5.2) 522(5.2) Shift Total(mL/kg) 522(5.2) 522(5.2) OUTPUT Shift Total(mL/kg) Weight (kg) 101.2 101.2 101.2 101.2 LABS: ABGs: No results for input(s): POCPH, POCPCO2, POCPO2, POCHCO3, VUDG7NVN in the last 72 hours. CBC: Recent Labs 09/30/21 0612 10/01/21 0234 10/01/21 0859 10/02/21 0542 WBC 4.3 3.9 4.8 5.2 HGB 10.2* 10.0* 10.9* 10.4* HCT 30.9* 28.5* 32.2* 31.2* MCV 88.0 84.3 85.9 86.2 PLT 70* See Reflexed IPF Result 141 92* LYMPHOPCT 28 37 -- 35 RBC 3.51* 3.38* 3.75* 3.62* MCH 29.1 29.6 29.1 28.7 MCHC 33.0 35.1* 33.9 33.3 RDW 14.2 13.9 13.8 13.7 CRP: No results for input(s): CRP in the last 72 hours. LDH: Recent Labs 10/01/21 0859 LDH 233* BMP: Recent Labs 09/30/21 0437 09/30/21 0437 09/30/21 1446 09/30/21 1446 09/30/21 2047 10/01/21 0234 10/01/21 0859 10/01/21 1507 10/02/21 0542 10/02/21 0932 NA 147* < > 145* < > 142 138 137 135 -- 141 K 4.2 < > 3.4* < > 3.5* 3.5* 3.2* 3.4* -- 3.6* CL 119* < > 119* < > 115* 115* 112* 108* -- 109* CO2 11* < > 13* < > 16* 13* 16* 19* -- 23 BUN 35* -- 35* -- -- 31* -- -- -- 22* CREATININE 2.06* -- 2.05* -- -- 1.77* -- -- -- 1.46* GLUCOSE 160* -- 162* -- -- 184* -- -- -- 109* PHOS -- -- -- -- -- 1.8* -- -- 3.0 3.2 < > = values in this interval not displayed. Liver Function Test: Recent Labs 10/01/21 02310/01/21 0859 10/02/21 0932 PROT 4.6* -- -- LABALBU 1.9* -- 2.5* ALT 11 -- -- AST 12 -- -- ALKPHOS 69 -- -- BILITOT <0.10* 0.17* -- Coagulation Profile: Recent Labs 10/01/2123310/01/21 0859 INR 1.3 1.1 PROTIME 13.8* 11.4 APTT -- 22.1 D-Dimer: No results for input(s): DDIMER in the last 72 hours. Lactic Acid: No results for input(s): LACTA in the last 72 hours. Cardiac Enzymes: No results for input(s): CKTOTAL, CKMB, CKMBINDEX, TROPONINI in the last 72 hours. Invalid input(s): TROPONIN, HSTROP BNP/ProBNP: No results for input(s): BNP, PROBNP in the last 72 hours. Triglycerides: No results for input(s): TRIG in the last 72 hours. Microbiology: Urine Culture: No components found for: CURINE Blood Culture: No components found for: CBLOOD, CFUNGUSBL Sputum Culture: No components found for: CSPUTUM Recent Labs 09/30/21 0950 10/01/21 1231 10/01/21 1341 10/01/21 1341 10/01/21 1648 SPECDESC .ULCER RT ARM < > .FECES < > .FECES SPECIAL NOT REPORTED -- -- -- -- CULTURE PENDING -- -- -- -- CAMPYLOBPCR -- -- NEGATIVE: No Campylobacter spp. (jejuni or coli) DNA Detected -- -- SALMONELLAPC -- -- NEGATIVE: No Salmonella spp. DNA Detected -- -- SHIGAPCR -- -- NEGATIVE: No Shiga toxin-producing gene(s) Detected -- -- SHIGELLAPCR -- -- NEGATIVE: No Shigella spp. / EIEC DNA Detected -- -- < > = values in this interval not displayed. Recent Labs 09/30/21 0950 09/30/21 0950 10/01/21 1231 10/01/21 1341 10/01/21 1648 SPECDESC .ULCER RT ARM < > .NASOPHARYNGEAL SWAB .FECES .FECES SPECIAL NOT REPORTED -- -- -- -- CULTURE PENDING -- -- -- -- < > = values in this interval not displayed. Pathology: Radiology Reports: CT ABDOMEN PELVIS WO CONTRAST Additional Contrast? Oral Final Result 1. No acute process in the abdomen or pelvis. 2. Trace bilateral pleural fluid and mild bibasilar atelectasis. RECOMMENDATIONS: Unavailable XR CHEST PORTABLE Final Result Bilateral scattered pulmonary opacities consistent with multifocal airspace disease/pneumonia. No extrapleural air. Echocardiogram: No results found for this or any previous visit. ASSESSMENT AND PLAN Assessment: DKA secondary type I Community-acquired pneumonia MRDD 13 mm lung nodule Plan: Labs, charts and images been reviewed. Patient is able to eat and drink. Completed Ceftriaxone and azithromycin. Follow-up outpatient with repeat CT scan in 3 months. Breathing treatment PT/OT We will continue to follow. I will discuss with attending. Keith Bailey MD PGY-3, Internal medicine resident [facility], [place], [place] Please note that this chart was generated using voice recognition [employer] dictation software. Although every effort was made to ensure the accuracy of this automated behavioral health specialist, some errors in behavioral health specialist may have occurred. Associated attestation - Gian Marr MD - 10/02/2021 6:49 PM EST Attending Physician Statement I have discussed the case of Yamila Lozada, including pertinent history and exam findings with the resident/fellow/medical student/CHIEF OPERATOR/PA. I have seen and examined the patient and the timmons elements of the encounter have been performed by me. I agree with the assessment, plan and orders as documented by the resident/fellow/medical student/CHIEF OPERATOR/PA With changes made to the note as needed. Pt was seen during rounds. Review of Systems: In addition to the pertinent positives and negatives as stated within HPI and the review of systems as documented in their notes, all other systems were reviewed when able to and are reported negative. Afebrile On room air Improving cough No leukocytosis Patient needs follow-up for the lung nodule identified in an outline [facility] films CT scan of the abdomen with trace bilateral pleural fluid and mild bibasilar atelectasis Patient will follow up with her primary care physician and geology scientist in [place] as she does not have any transportation to come to [facility] Gian Marr MD 10/02/2021 6:48 PM Spinning Lathe Operator Hydraulic notified Pt was in SVT with HR in 160-170 that was sustained for approximately 1-2 minutes. Pt has since converted back to NSR ( HR 91) . Pt was asymptomatic during rhythm. Is there anything you would like done? . No new orders at this time. GOSIA LEON, RCPPatient Assessment complete. DKA, type 1, not at goal (HCC) [E10.10] . Vitals: 10/01/21 1120 BP: 125/87 Pulse: 83 Resp: 18 Temp: 98.1 F (36.7 C) SpO2: 98% . Patients home meds are Prior to Admission medications Medication Sig Start Date End Date Taking? Authorizing Provider ibuprofen (ADVIL;MOTRIN) 600 MG tablet Take 600 mg by mouth every 6 hours as needed for Pain Yes Historical Provider, nabumetone (RELAFEN) 500 MG tablet Take 500 mg by mouth 2 times daily Yes Historical Provider, naproxen (NAPROSYN) 500 MG tablet Take 500 mg by mouth 2 times daily (with meals) Yes Historical Provider, glipiZIDE (GLUCOTROL) 10 MG tablet Take 10 mg by mouth 2 times daily (before meals) Yes Historical Provider, hyoscyamine (ANASPAZ;LEVSIN) [address] 125 mcg under the tongue every 4 hours as needed for Cramping Yes Historical Provider, clonazePAM (KLONOPIN) 1 MG tablet Take 1 mg by mouth 3 times daily as needed for Anxiety. Yes Historical Provider, HYDROcodone-acetaminophen (NORCO) 5-325 MG per tablet Take 1 tablet by mouth every 6 hours as needed for Pain. Yes Historical Provider, acetaminophen-codeine (TYLENOL #3) 300-30 MG per tablet Take 1 tablet by mouth every 6 hours as needed for Pain. Yes Historical Provider, insulin glargine (LANTUS SOLOSTAR) 100 UNIT/ML injection pen Inject into the skin Yes Historical Provider, . Recent Surgical History: None = 0 Assessment Peak Flow (asthma only) Predicted: na Personal Best: na PEF na % Predicted na Peak Flow : not applicable = 0 FEV1/FVC FEV1 Predicted na FEV1 na FEV1 % Predicted na FVC na IS volume na IBW na RR 16 Breath Sounds: clear,diminished Bronchodilator assessment at level 1Hyperinflation assessment at level Secretion Management assessment at level [] Bronchodilator Assessment BRONCHODILATOR ASSESSMENT SCORE Score 0 1 2 3 4 5 Breath Sounds [] Patient Baseline [x] No Wheeze good aeration [] Faint, scattered wheezing, good aeration [] Expiratory Wheezing and or moderately diminished [] Insp/Exp wheeze and/or very diminished [] Insp/Exp and/ or marked distress Respiratory Rate [] Patient Baseline [x] Less than 20 [x] Less than 20 [] 20-25 [] Greater than 25 [] Greater than 25 Peak flow % of Pred or PB [x] NA [] Greater than 90% [] 81-90% [] 71-80% [] Less than or equal to 70% or unable to perform [] Unable due to Respiratory Distress Dyspnea re [] Patient Baseline [x] No SOB [x] No SOB [] SOB on exertion [] SOB min activity [] At rest/acute e FEV% Predicted [x] NA [] Above 69% [] Unable [] Above 60-69% [] Unable [] Above 50-59% [] Unable [] Above 35-49% [] Unable [] Less than 35% [] Unable [] Hyperinflation Assessment Score 1 2 3 CXR and Breath Sounds [] Clear [] No atelectasis Basilar aeration [] Atelectasis or absent basilar breath sounds Incentive Spirometry Volume (Per IBW) [] Greater than or equal to 15ml/Kg [] less than 15ml/Kg [] less than 15ml/Kg Surgery within last 2 weeks [] None or general [] Abdominal or thoracic surgery [] Abdominal or thoracic Chronic Pulmonary Historyre [] No [] Yes [] Yes [] Secretion Management Assessment Score 1 2 3 Bilateral Breath Sounds [] Occasional Rhonchi [] Scattered Rhonchi [] Course Rhonchi and/or poor aeration Sputum [] Small amount of thin secretions [] Moderate amount of viscous secretions [] Copius, Viscious Yellow/ Secretions CXR as reported by physician [] clear [] Unavailable [] Infiltrates and/or consolidation [] Unavailable [] Mucus Plugging and or lobar consolidation [] Unavailable Cough [] Strong, productive cough [] Weak productive cough [] No cough or weak non-productive cough GOSIA LEON, [facility] 1:03 PM FEMALE MALE FEV1 Predicted Normal Values FEV1 Predicted Normal Values Age Height in Feet and Inches Age Height in Feet and Inches 4' 11 5' 1 5' 3 5' 5 5' 7 5' 9 5' 11 6' 1 4' 11 5' 1 5' 3 5' 5 5' 7 5' 9 5' 11 6' 1 42 - 45 2.49 2.66 2.84 3.03 3.22 3.42 3.62 3.83 42 - 45 2.82 3.03 3.26 3.49 3.72 3.96 4.22 4.47 46 - 49 2.40 2.57 2.76 2.94 3.14 3.33 3.54 3.75 46 - 49 2.70 2.92 3.14 3.37 3.61 3.85 4.10 4.36 50 - 53 2.31 2.48 2.66 2.85 3.04 3.24 3.45 3.66 50 - 53 2.58 2.80 3.02 3.25 3.49 3.73 3.98 4.24 54 - 57 2.21 2.38 2.57 2.75 2.95 3.14 3.35 3.56 54 - 57 2.46 2.67 2.89 3.12 3.36 3.60 3.85 4.11 58 - 61 2.10 2.28 2.46 2.65 2.84 3.04 3.24 3.45 58 - 61 2.32 2.54 2.76 2.99 3.23 3.47 3.72 3.98 62 - 65 1.99 2.17 2.35 2.54 2.73 2.93 3.13 3.34 62 - 65 2.19 2.40 2.62 2.85 3.09 3.33 3.58 3.84 66 - 69 1.88 2.05 2.23 2.42 2.61 2.81 3.02 3.23 66 - 69 2.04 2.26 2.48 2.71 2.95 3.19 3.44 3.70 70+ 1.82 1.99 2.17 2.36 2.55 2.75 2.95 3.16 70+ 1.97 2.19 2.41 2.64 2.87 3.12 3.37 3.62 Predicted Peak Expiratory Flow Rate Height (in) Female Height (in) Male Age 56 58 60 62 64 66 68 70 Age 20 344 357 372 387 402 417 432 446 60 62 64 66 68 70 72 74 76 25 337 352 366 381 396 411 426 441 25 447 476 505 533 562 591 619 648 677 30 329 344 359 374 389 404 419 434 30 437 466 494 523 552 580 609 638 667 35 322 337 351 366 381 396 411 426 35 426 455 484 512 541 570 598 627 657 40 314 329 344 359 374 389 404 419 40 416 445 473 502 531 559 588 617 647 45 307 322 336 351 366 381 396 411 45 405 434 463 491 520 549 577 606 636 50 299 314 329 344 359 374 389 404 50 395 424 452 481 510 538 567 596 625 55 292 307 321 336 351 366 381 396 55 384 413 442 470 499 528 556 585 615 60 284 299 314 329 344 359 374 389 60 374 403 431 460 489 517 546 575 605 65 277 292 306 321 336 351 366 381 65 363 392 421 449 478 507 535 564 594 70 269 284 299 314 329 344 359 374 70 353 382 410 439 468 496 525 554 583 75 261 274 289 305 319 334 348 364 75 344 372 400 429 458 487 515 544 573 80 253 266 282 296 312 327 342 356 80 335 362 390 419 448 [phone] Physical Therapy Facility/Department: [address] [facility] [facility] Daily Treatment Note NAME: Yamila Lozada : 1980 Date of Service: 10/01/2021 Discharge Recommendations: Patient would benefit from continued therapy after discharge PT Equipment Recommendations Equipment Needed: Yes Mobility Devices: Walker Walker: Rollator (4 Wheeled) Assessment Body structures, Functions, Activity limitations: Decreased functional mobility ;Decreased balance;Decreased endurance;Decreased strength Assessment: The pt is overall MIN-CGA for all functional mobility. Able to amb 40ft x2 with RW , fatigues quickly requiring frequent rest breaks. Recomending continued therapy to address deficits. Prognosis: Good PT Education: Goals;PT Role;Plan of Care;Functional Mobility Training REQUIRES PT FOLLOW UP: Yes Activity Tolerance Activity Tolerance: Patient limited by endurance;Patient limited by fatigue Patient Diagnosis(es): There were no encounter diagnoses. has a past medical history of Developmental delay, DM (diabetes mellitus), type 1 (HCC), GERD (gastroesophageal reflux disease), HLD (hyperlipidemia), and Lung nodule. has a past surgical history that includes Tonsillectomy; Cholecystectomy; and Tubal ligation (Bilateral, 2018). Restrictions Restrictions/Precautions Restrictions/Precautions: Fall Risk,Up as Tolerated Required Braces or Orthoses?: No Subjective General Family / Caregiver Present: No Subjective Subjective: RN and pt agreeable to PT. Pt supine in bed upon arrival. Pt pleasant and cooperative throughout. Pain Screening Patient Currently in Pain: Denies Vital Signs Patient Currently in Pain: Denies Orientation Orientation Overall Orientation Status: Within Functional Limits Cognition Objective Bed mobility Supine to Sit: Minimal assistance Sit to Supine: Minimal assistance Scooting: Minimal assistance Comment: Assist with trunk progression and BLE with sit to supine. Pt demo fatigue and SOB upon aitting at EOb. increase time for symptoms to clear. Transfers Sit to Stand: Contact guard assistance Stand to sit: Contact guard assistance Comment: Transfers performed with RW. Verbal cues for UE placement with good return. Ambulation Ambulation?: Yes Ambulation 1 Surface: level tile Device: Rolling Walker Assistance: Contact guard assistance Quality of Gait: Fatigues quickly requiring multiple standing rest breaks. Gait Deviations: Slow Azalia;Decreased step length;Decreased step height;Increased VELIA Distance: 40ft x2 Comments: Limited by fatigue and SOB Stairs/Curb Stairs?: No Balance Posture: Fair Sitting - Static: Good;- Sitting - Dynamic: Good;- Standing - Static: Fair;+ Standing - Dynamic: Fair Comments: standing balance assessed with RW Exercises Comments: Pt defer d/t fatigue . AM-PAC Score AM-PAC Inpatient Mobility Raw Score : 18 (10/01/21 1230) AM-PAC Inpatient T-Scale Score : 43.63 (10/01/21 1230) Mobility Inpatient CMS 0-100% Score: 46.58 (10/01/21 1230) Mobility Inpatient [facility] G-Code Modifier : CK (10/01/21 123) Goals Short term goals Time Frame for Short term goals: 14 visits Short term goal 1: Perform bed mobility and functional transfers indepedently Short term goal 2: Ambulate 300ft with least restrictive AD and SBA Short term goal 3: Demo Good dynamic standing balance Short term goal 4: Ascend/descend 3 steps with B HR and CGA Plan Plan Times per week: 5-6x/wk Current Treatment Recommendations: Strengthening,ROM,Balance Training,Functional Mobility Training,Transfer Training,Gait Training,Stair training,Endurance Training,Home Exercise Program,Safety Education & Training,Patient/Caregiver Education & Training Safety Devices Type of devices: Nurse notified,Call light within reach,Gait belt,Left in chair,Chair alarm in place Restraints Initially in place: No Therapy Time Individual Concurrent Group Co-treatment Time In 1040 Time Out 1106 Minutes 26 Timed Code Treatment Minutes: 26 Minutes Sarah Guzmán PTA Called pt room ([id number]) and number in chart but no answer. Called nursing unit to check if appropriate to work with pt. Nurses said pt now a COVID-19 Rule out and is getting ready to go to [place]. As far as education, staff hasn't been able to reach mom. Pt lives with . She was prescribed insulin (Lantus) prior to admission and glucotrol 10 mg bid. Pt was a transfer from another facility where she had gone in DKA. Dx w pneumonia and an abscess under her arm which impacted her blood sugars. Will follow pt care and try to touch base with her prior to D/c. Images from the original note were not included. [facility] Office: [phone] Hemal Charles DO, Steve Raza DO, Costa Cai DO, Gallito Lino DO, Natalee Negrete MD, Coreen Bryant MD, Shruti Bautista MD, Zulay Bueno MD, Priya Paul MD, Kevin Collins MD, Lyndsey Galindo MD, Morro Overton DO, Guido Serna DO, Rakel Aquino MD, Libby Samuel DO, Maycol Gomez MD, Kalyan Corbett MD, Shahzad Faria MD, Cee Casarez MD, Donavan Richardson MD, Autumn David CNP, Laurie Hernandez CNP, Veronica Garcia CNP, Ada Rascon, VICENTE, Jamal Soto CNP, Shellie Patton CNP, Dahiana Albarado CNP, Zandra Holly [employer], Andi Mcdonald [employer], Terrance Smalls, ROSAURA-C, Dahiana Vyas, DNP, Christina Tanner, DNP, Karyna Hernandez, ENG[employer], Corina Bedoya, LUCIANO, Amberaniya Dewey CNP, Archana Lockhart CNP, Emili Stapleton CNP, Nina Anthony CNP [facility] IN-PATIENT SERVICE [facility] Progress Note 10/01/2021 11:21 AM Name: Yamila Lozada Acct: [id number] Room: 0161/0161-01 IP Day: 3 Admit Date: 09/28/2021 9:38 AM PCP: Diaz Betts MD Code Status: Full Code Subjective: C/C: DKA Interval History Status: unchanged. Patient seen and examined today, continues to have diffuse diarrhea. Bicarb still 13 on full bicarb drip. Will consult infectious disease, spoke with nursing staff Brief History: Yamila Lozada is a 41 year old female who was transferred from an [facility] with DKA. Her presentation to ED on 09/26/21 showed her initial blood sugar of 816 with a beta-hydroxybutyrate 11.24, anion gap >25 with (+) ketones in urine. She was started on DKA protocol with bicarb drip, IVF and insulin drip and was transferred to [facility] on 09/28/21 for ICU admission and further treatment. In addition she had an elevated D-dimer. CTPE (-) for PE but concerning for RML pulmonary nodule and ill-defined ground glass opacification in the RUL concerning for PNA. She did have episodes of vomiting which have subsided. She was bridged to lantus insulin and insulin drip was discontinued. Transfer to [facility]-surg bed 09/29/21 Review of Systems: Constitutional: negative for chills, fevers, sweats Respiratory: negative for cough, dyspnea on exertion, shortness of breath, wheezing Cardiovascular: negative for chest pain, chest pressure/discomfort, lower extremity edema, palpitations Gastrointestinal: negative for abdominal pain, constipation, diarrhea, nausea, vomiting Neurological: negative for dizziness, headache Medications: Allergies: Allergies Allergen Reactions Sulfamethoxazole-Trimethoprim Itching Current Meds: Scheduled Meds: potassium phosphate IVPB 30 mmol IntraVENous Once insulin glargine 20 Units SubCUTAneous Nightly insulin lispro 0-18 Units SubCUTAneous 4x Daily AC & HS [Held by provider] heparin (porcine) 5,000 Units SubCUTAneous 3 times per day cefTRIAXone (ROCEPHIN) IV 1,000 mg IntraVENous Q24H azithromycin 500 mg IntraVENous Q24H Continuous Infusions: sodium bicarbonate infusion 100 mL/hr at 10/01/21 0850 dextrose dextrose 5 % and 0.45 % NaCl Stopped (09/29/21 0712) PRN Meds: iohexol, albuterol, potassium chloride OR potassium alternative oral replacement OR potassium chloride, glucose, dextrose, glucagon (rDNA), dextrose, acetaminophen, dextrose, magnesium sulfate, sodium phosphate IVPB OR sodium phosphate IVPB OR sodium phosphate IVPB, polyethylene glycol, dextrose 5 % and 0.45 % NaCl, ondansetron Data: Past Medical History: has a past medical history of Developmental delay, DM (diabetes mellitus), type 1 (HCC), GERD (gastroesophageal reflux disease), HLD (hyperlipidemia), and Lung nodule. Social History: reports that she has never smoked. She has never used smokeless tobacco. She reports that she does not drink alcohol and does not use drugs. Family History: Family History Problem Relation Age of Onset No Known Problems Mother Vitals: BP 135/81 Pulse 89 Temp 97.7 F (36.5 C) (Oral) Resp 18 Ht 5' (1.524 m) Wt 223 lb 3.2 oz (101.2 kg) SpO2 98% BMI 43.59 kg/m Temp (24hrs), Av.9 F (36.6 C), Min:97 F (36.1 C), Max:99 F (37.2 C) Recent Labs 09/30/21 1721 09/30/21 1950 10/01/21 0029 10/01/21 0825 POCGLU 177* 150* 137* 197* I/O (24Hr): Intake/Output Summary (Last 24 hours) at 10/01/2021 1121 Last data filed at 10/01/2021 0122 Gross per 24 hour Intake Output 1600 ml Net -1600 ml Labs: Hematology: Recent Labs 09/30/21 0612 10/01/21 0234 10/01/21 0859 WBC 4.3 3.9 4.8 RBC 3.51* 3.38* 3.75* HGB 10.2* 10.0* 10.9* HCT 30.9* 28.5* 32.2* MCV 88.0 84.3 85.9 MCH 29.1 29.6 29.1 MCHC 33.0 35.1* 33.9 RDW 14.2 13.9 13.8 PLT 70* See Reflexed IPF Result 141 MPV 8.5 NOT REPORTED 10.4 INR -- 1.3 1.1 Chemistry: Recent Labs 09/29/21 0501 09/29/21 0501 09/29/21 0858 09/29/21 0858 09/30/21 0437 09/30/21 0437 09/30/21 1446 09/30/21 1446 09/30/21 2047 10/01/21 0234 10/01/21 0859 NA 133* < > 129* < > 147* < > 145* < > 142 138 137 K 3.4* < > 4.1 < > 4.2 < > 3.4* < > 3.5* 3.5* 3.2* CL 110* < > 106 < > 119* < > 119* < > 115* 115* 112* CO2 12* < > 12* < > 11* < > 13* < > 16* 13* 16* GLUCOSE 217* < > 301* < > 160* -- 162* -- -- 184* -- BUN 32* < > 32* < > 35* -- 35* -- -- 31* -- CREATININE 2.29* < > 2.30* < > 2.06* -- 2.05* -- -- 1.77* -- MG 1.8 < > 1.7 -- -- -- 1.8 -- -- 2.0 -- ANIONGAP 11 < > 11 < > 17 < > 13 < > 11 10 9 LABGLOM 23* < > 23* < > 26* -- 27* -- -- 31* -- GFRAA 28* < > 28* < > 32* -- 32* -- -- 38* -- CALCIUM 8.0* < > 7.8* < > 8.6 -- 8.9 -- -- 8.2* -- PHOS 3.0 -- 3.1 -- -- -- -- -- -- 1.8* -- < > = values in this interval not displayed. Recent Labs 09/29/21 2320 09/30/21 0612 09/30/21 0809 09/30/21 1158 09/30/21 1721 09/30/21 1950 10/01/21 0029 10/01/21 0234 10/01/21 0825 10/01/21 0859 PROT -- -- -- -- -- -- -- 4.6* -- -- LABALBU -- -- -- -- -- -- -- 1.9* -- -- LABA1C -- 15.2* -- -- -- -- -- -- -- -- AST -- -- -- -- -- -- -- 12 -- -- ALT -- -- -- -- -- -- -- 11 -- -- ALKPHOS -- -- -- -- -- -- -- 69 -- -- BILITOT -- -- -- -- -- -- -- <0.10* -- 0.17* BILIDIR -- -- -- -- -- -- -- -- -- 0.08 POCGLU < > -- 210* 148* 177* 150* 137* -- 197* -- < > = values in this interval not displayed. ABG: Lab Results Component Value Date FIO2 INFORMATION NOT PROVIDED 09/30/2021 Lab Results Component Value Date/Time SPECIAL NOT REPORTED 09/28/2021 11:39 AM Lab Results Component Value Date/Time CULTURE (A) 09/28/2021 11:39 AM YEAST, NOT SHENG ALBICANS OR SHENG DUBLINIENSIS 10 to 50,000 CFU/ML CULTURE (A) 09/28/2021 11:39 AM YEAST, NOT SHENG ALBICANS OR SHENG DUBLINIENSIS 10 to 50,000 CFU/ML DIFFERENT COLONY MORPHOLOGY Radiology: XR CHEST PORTABLE Result Date: 09/28/2021 Bilateral scattered pulmonary opacities consistent with multifocal airspace disease/pneumonia. No extrapleural air. Physical Examination: General appearance: alert, cooperative and no distress Mental Status: oriented to person, place and time and normal affect Lungs: clear to auscultation bilaterally, normal effort Heart: regular rate and rhythm, no murmur Abdomen: soft, nontender, nondistended, normal bowel sounds, no masses, hepatomegaly, splenomegaly Extremities: no edema, redness, tenderness in the calves. Skin: no gross lesions, rashes, induration. There is a known ulceration on the medial portion of the right antecubital fossa with an overlying clean, dry and intact dressing. Assessment: Hospital Problems Last Modified POA * (Principal) DKA, type 1, not at goal (HCC) 09/29/2021 Yes Pneumonia due to infectious organism 09/29/2021 Yes Mental developmental delay 09/29/2021 Yes Acute kidney injury (DREW) with acute tubular necrosis (ATN) (HCC) 09/30/2021 Yes High anion gap metabolic acidosis 09/30/2021 Yes Plan: DKA -No longer in DKA, bicarb likely secondary to diarrhea. Acute diarrhea recheck Covid, molecular panel for stool. Consult infectious disease Metabolic acidosis likely secondary to diarrhea Acute kidney injury with ATN -Continue bicarb drip, kidney function improving daily CAP - reviewed CXR suggesting multifocal PNA. Continue rocephin/azithro as ordered Right arm ulceration - obtain wound culture. Continue local wound care Thrombocytopenia -Improved today, hemolysis work-up negative 13 mm pulmonary nodule noted on CT from [facility]. Will need repeat CT in 3 months based on Fleischner criteria Guido Serna DO 10/01/2021 11:21 AM PULMONARY & CRITICAL CARE MEDICINE PROGRESS NOTE Patient: Yamila Lozada Admit date: 09/28/2021 Primary Care Physician: Diaz Betts MD Consulting Physician: Guido Serna DO CODE Status: Full Code LOS: 3 SUBJECTIVE Chief Complaint/ Reason for consult: Pneumonia Hospital Course: The patient is a 41 y.o. female with past medical history of MRDD initially went to the [facility] for nausea, shivering, chills and altered mental status. Patient was found to have DKA with bilateral lower lobe pneumonia. CTA negative for PE but it showed 13 mm pulmonary nodule. Patient was transferred to [facility] for further care. In ICU she was treated with fluids and insulin infusion eventually was bridged with insulin. On the floor she is doing fine she denies any productive cough, chest pain, shortness of breath, fever, chills, abdominal pain, dizziness. On room air saturating well. Currently patient is being treated for community-acquired pneumonia with ceftriaxone and azithromycin. Of note she saw general surgeon on 09/24 for right arm abscess which was drained. For for drainage she was prescribed Augmentin by primary care. Interval Hx Patient seen and examined. No acute issues overnight. Hemodynamically and vitally stable. Afebrile. Labs reviewed. Denies worsening of SOB but feels little tight in chest, Review Of Systems: Review of Systems Constitutional: Positive for chills. HENT: Negative. Eyes: Negative. Respiratory: Positive for chest tightness. Cardiovascular: Negative. Gastrointestinal: Negative. Endocrine: Negative. Genitourinary: Negative. Musculoskeletal: Negative. Skin: Negative. Neurological: Negative. Hematological: Negative. Psychiatric/Behavioral: Negative. OBJECTIVE PaO2/FiO2 RATIO: No results for input(s): POCPO2 in the last 72 hours. VITAL SIGNS: LAST: BP 135/81 Pulse 89 Temp 97.7 F (36.5 C) (Oral) Resp 18 Ht 5' (1.524 m) Wt 223 lb 3.2 oz (101.2 kg) SpO2 98% BMI 43.59 kg/m 8-24 HR RANGE: TEMP Temp Av.9 F (36.6 C) Min: 97 F (36.1 C) Max: 99 F (37.2 C) BP Systolic (24hrs), Av , Min:123 , Max:144 Diastolic (24hrs), Av, Min:74, Max:91 PULSE Pulse Av.8 Min: 89 Max: 96 RR Resp Av Min: 16 Max: 18 O2 SAT SpO2 Av % Min: 96 % Max: 98 % OXYGEN DELIVERY O2 Flow Rate (L/min) Av L/min Min: 0 L/min Max: 0 L/min Systemic Examination: Physical Exam - Constitutional: Alert, cooperative and no distress. Mental Status: Oriented to person, place and time and normal affect. Lungs: Bilateral air entry present, lung poe clear. Normal effort. Heart: Regular rate and rhythm, no murmur. Abdomen: Soft, nontender, nondistended, normal bowel sounds. Extremities: No edema, redness, tenderness in the calves. Skin: Warm, dry, no gross lesions or rashes. DATA REVIEW Medications: Current Inpatient Scheduled Meds: potassium phosphate IVPB 30 mmol IntraVENous Once insulin glargine 20 Units SubCUTAneous Nightly insulin lispro 0-18 Units SubCUTAneous 4x Daily AC & HS [Held by provider] heparin (porcine) 5,000 Units SubCUTAneous 3 times per day cefTRIAXone (ROCEPHIN) IV 1,000 mg IntraVENous Q24H azithromycin 500 mg IntraVENous Q24H Continuous Infusions: sodium bicarbonate infusion 100 mL/hr at 10/01/21 0850 dextrose dextrose 5 % and 0.45 % NaCl Stopped (09/29/21 0712) INPUT/OUTPUT: In: - Out: 2600 [Urine:2600] Date 10/01/21 0000 - 10/01/21 2359 Shift 1398-4793 2291-6628 8144-7069 24 Hour Total INTAKE Shift Total(mL/kg) OUTPUT Urine(mL/kg/hr) 600(0.7) 600 Shift Total(mL/kg) 600(5.9) 600(5.9) Weight (kg) 101.2 101.2 101.2 101.2 LABS: ABGs: No results for input(s): POCPH, POCPCO2, POCPO2, POCHCO3, [id number] in the last 72 hours. CBC: Recent Labs 09/29/21 0501 09/30/21 0612 10/01/21 0234 10/01/21 0859 WBC 8.8 4.3 3.9 4.8 HGB 10.8* 10.2* 10.0* 10.9* HCT 34.1* 30.9* 28.5* 32.2* MCV 88.6 88.0 84.3 85.9 PLT 107* 70* See Reflexed IPF Result 141 LYMPHOPCT 21* 28 37 -- RBC 3.85* 3.51* 3.38* 3.75* MCH 28.1 29.1 29.6 29.1 MCHC 31.7 33.0 35.1* 33.9 RDW 14.0 14.2 13.9 13.8 CRP: No results for input(s): CRP in the last 72 hours. LDH: No results for input(s): LDH in the last 72 hours. BMP: Recent Labs 09/28/21215609/28/21 2157 09/29/21 0153 09/29/21 0153 09/29/21 0501 09/29/21 0501 09/29/21 0858 09/29/21 0858 09/30/21 0437 09/30/21 1446 09/30/21 2047 10/01/21 0234 10/01/21 0859 NA 131* < > 133* < > 133* < > 129* < > 147* 145* 142 138 137 K 3.4* < > 3.7 < > 3.4* < > 4.1 < > 4.2 3.4* 3.5* 3.5* 3.2* CL 110* < > 113* < > 110* < > 106 < > 119* 119* 115* 115* 112* CO2 15* < > 13* < > 12* < > 12* < > 11* 13* 16* 13* 16* BUN 32* < > 32* < > 32* -- 32* -- 35* 35* -- 31* -- CREATININE 2.24* < > 2.39* < > 2.29* -- 2.30* -- 2.06* 2.05* -- 1.77* -- GLUCOSE 156* < > 127* < > 217* -- 301* -- 160* 162* -- 184* -- PHOS 1.9* -- 1.9* -- 3.0 -- 3.1 -- -- -- -- 1.8* -- < > = values in this interval not displayed. Liver Function Test: Recent Labs 10/01/21 02310/01/21 0859 PROT 4.6* -- LABALBU 1.9* -- ALT 11 -- AST 12 -- ALKPHOS 69 -- BILITOT <0.10* 0.17* Coagulation Profile: Recent Labs 10/01/21 0234 10/01/21 0859 INR 1.3 1.1 PROTIME 13.8* 11.4 APTT -- 22.1 D-Dimer: No results for input(s): DDIMER in the last 72 hours. Lactic Acid: No results for input(s): LACTA in the last 72 hours. Cardiac Enzymes: No results for input(s): CKTOTAL, CKMB, CKMBINDEX, TROPONINI in the last 72 hours. Invalid input(s): TROPONIN, HSTROP BNP/ProBNP: No results for input(s): BNP, PROBNP in the last 72 hours. Triglycerides: No results for input(s): TRIG in the last 72 hours. Microbiology: Urine Culture: No components found for: CURINE Blood Culture: No components found for: CBLOOD, CFUNGUSBL Sputum Culture: No components found for: CSPUTUM Recent Labs 09/28/21 1139 SPECDESC .CLEAN CATCH URINE SPECIAL NOT REPORTED CULTURE YEAST, NOT SHENG ALBICANS OR SHENG DUBLINIENSIS 10 to 50,000 CFU/ML* YEAST, NOT SHENG ALBICANS OR SHENG DUBLINIENSIS 10 to 50,000 CFU/ML DIFFERENT COLONY MORPHOLOGY* Recent Labs 09/28/21 1138 09/28/21 1139 SPECDESC .NASAL SWAB .CLEAN CATCH URINE SPECIAL -- NOT REPORTED CULTURE -- YEAST, NOT SHENG ALBICANS OR SHENG DUBLINIENSIS 10 to 50,000 CFU/ML* YEAST, NOT SHENG ALBICANS OR SHENG DUBLINIENSIS 10 to 50,000 CFU/ML DIFFERENT COLONY MORPHOLOGY* Pathology: Radiology Reports: XR CHEST PORTABLE Final Result Bilateral scattered pulmonary opacities consistent with multifocal airspace disease/pneumonia. No extrapleural air. XR CHEST (2 VW) (Results Pending) CT ABDOMEN PELVIS WO CONTRAST Additional Contrast? Oral (Results Pending) Echocardiogram: No results found for this or any previous visit. ASSESSMENT AND PLAN Assessment: DKA secondary type I Community-acquired pneumonia MRDD 13 mm lung nodule Plan: Labs, charts and images been reviewed. Patient is able to eat and drink. Continue antibiotics, follow-up on respiratory cultures. Continue insulin as per primary. Follow-up outpatient with repeat CT scan in 3 months. Breathing treatment PT/OT We will continue to follow. I will discuss with attending. Keith Bailey MD PGY-3, Internal medicine resident [facility], [place], [place] Please note that this chart was generated using voice recognition Dragon dictation software. Although every effort was made to ensure the accuracy of this automated behavioral health specialist, some errors in behavioral health specialist may have occurred. Attending Physician Statement I have discussed the care of Yamila Lozada, including pertinent history and exam findings with the resident. I have reviewed the timmons elements of all parts of the encounter with the resident. I have seen and examined the patient with the resident. I agree with the assessment and plan and status of the problem list as documented. Overnight events noted, chart reviewed, labs and medications reviewed. Patient has mild cough denies. Production denies hemoptysis or chest pain. She remained on room air maintaining saturation. According to patient she is still very weak denies abdominal pain or vomiting. On review of labs she has nongap acidosis with bicarb of 16 anion gap is normal patient is currently on bicarbonate drip per primary service. She is currently on Rocephin and Zithromax for pneumonia. Repeat chest x-ray PA lateral view tomorrow. Images from [facility] of [facility] scan is not available at this time we will requested again. Patient is aware and discussed with her again that she will need CT scan of the chest for follow-up of right middle lobe lung nodule in 3 months. Patient follow-up locally in [facility] with [facility] scan and outpatient pulmonary CT scan Discussed with nursing staff, treatment and plan discussed. Please note that this chart was generated using voice recognition [employer] dictation software. Although every effort was made to ensure the accuracy of this automated behavioral health specialist, some errors in behavioral health specialist may have occurred. Leonel Draper MD 10/01/2021 11:36 AM Occupational Therapy Occupational Therapy Initial Assessment Date: 09/30/2021 Patient Name: Yamila Lozada : 1980 41-year-old female with history of MRDD, diabetes mellitus presenting with altered mental status and found to be in DKA. Date of Service: 09/30/2021 Discharge Recommendations: Patient would benefit from continued therapy after discharge Patient is currently unsafe to return to prior living arrangements without 24 hour assistance. OT Equipment Recommendations Equipment recommendations listed below are based on what the patient would need if they were able to return to prior living arrangements at the time of discharge. Walker: Rolling ADL Assistive Devices: Shower Chair with back;Grab Bars - toilet;Grab Bars - shower Assessment Performance deficits / Impairments: Decreased functional mobility ;Decreased ADL status;Decreased safe awareness;Decreased cognition;Decreased endurance;Decreased balance;Decreased high-level IADLs;Decreased fine motor control;Decreased coordination Assessment: Pt agreeable to session, seated at EOB with 2 nurses in room to administer meds. Pt completed feeding task to take oral medication administered by RN, required setup of meds and water into hand, dropped medication on first attempt demonstrating poor FMC, able to bring to mouth with SBA. Pt scooted to EOB with Min A. Pt completed sit<>stand from EOB with CGA, required VCs for proper hand placement on bed during transfer. Pt completed functional mobility to/from bathroom with CGA for safety and required Mod VCs for walker navigation and proper body/foot placement within RW. Pt completed toilet transfer with CGA, utilizing hand rails for safe descent. Pt sat on toilet ~10 minutes, sometimes leaning on hand rails with elbows during toileting, did not demonstrate LOB. Pt completed toileting tasks in bathroom with Min A, demonstrated good functional reach to grab TP and performed pericare. Pt required Min A for doffing/donning brief. Pt threaded BLE through brief & engaged in clothing management, required assist d/t decreased balance and weakness and increased dizziness. Pt required SBA and setup for grooming tasks d/t weakness, demonstrating poor FMC requiring assist to open tooth brush and toothpaste. Able to complete oral hygiene after prep with SBA. Completed face washing with SBA. Pt retired in recliner chair at end of session, all needs met, chair alarm on and call light in reach. Pt is limited by decreased cognition, endurance, balance, safety awareness, and FMC and would benefit from continued skilled OT services to improve independence in ADLs/IADLs and functional transfers/mobility. Prognosis: Good Decision Making: Medium Complexity Patient Education: Pt educated on OT role, OT POC, transfer training, proper hand placement for transfer, equipment, walker navigation and management, safety- fair return REQUIRES OT FOLLOW UP: Yes Activity Tolerance Activity Tolerance: Patient Tolerated treatment well;Patient limited by fatigue Safety Devices Safety Devices in place: Yes Type of devices: Gait belt;Left in chair;Call light within reach;Chair alarm in place;Nurse notified Patient Diagnosis(es): There were no encounter diagnoses. has a past medical history of Developmental delay, DM (diabetes mellitus), type 1 (HCC), GERD (gastroesophageal reflux disease), HLD (hyperlipidemia), and Lung nodule. has a past surgical history that includes Tonsillectomy; Cholecystectomy; and Tubal ligation (Bilateral, 2018). Restrictions Restrictions/Precautions Restrictions/Precautions: Fall Risk,Up as Tolerated Required Braces or Orthoses?: No Subjective General Patient assessed for rehabilitation services?: Yes Family / Caregiver Present: No General Comment Comments: RN ok'd OT des this date. Pt agreeable to session, pleasant/cooperative throughout. Social/Functional History Social/Functional History Lives With: Spouse Type of Home: Apartment (3rd floor) Home Layout: One level (laundry on same floor) Home Access: Elevator,Stairs to enter with rails Entrance Stairs - Number of Steps: 3 Entrance Stairs - Rails: Both Bathroom Shower/Tub: Tub/Shower unit Bathroom Toilet: Standard Receives Help From: Family ADL Assistance: Independent Homemaking Assistance: Independent Homemaking Responsibilities: Yes Ambulation Assistance: Independent Transfer Assistance: Independent Active Black Pickler: No Patient's Black Pickler Info: mother drives Occupation: Unemployed Leisure & Hobbies: Enjoys cooking Additional Comments: Pt reports is able to provide 24hr assistance, mother lives nearby and able to assist PRN. Objective Vision: Impaired Vision Exceptions: Wears glasses at all times Hearing: Within functional limits Orientation Overall Orientation Status: Within Functional Limits Balance Sitting Balance: Contact guard assistance (Pt sat at EOB with CGA d/t weakness and decreased balance, ~4 minutes at EOB for meds to be administered. Pt sat on toilet ~10 minutes with SBA engaging in dynamic sitting for reaching for TP/wiping self from behind.) Standing Balance: Contact guard assistance Standing Balance Time: ~6 minutes Activity: standing at EOB, standing at toileting for clothing management, standing at sink for ADLs Comment: w/ RW Functional Mobility Functional - Mobility Device: Rolling Walker Activity: To/from bathroom Assist Level: Contact guard assistance Functional Mobility Comments: Pt required CGA for functional mobility to/from bathroom using RW, required Mod VCs for walker navigation and proper body/foot placement within RW. Toilet Transfers Toilet - Technique: Ambulating Equipment Used: Raised toilet seat with rails Toilet Transfer: Contact guard assistance Toilet Transfers Comments: Pt required CGA for toilet transfer and VCs for proper body placement and safety ADL Feeding: Setup;Supervision;Increased time to complete (Pt completed feeding task to take oral medication administered by RN, required setup of meds and water into hand, dropped medication on first attempt demonstrating poor FMC, able to bring to mouth with SUP.) Grooming: Setup;Stand by assistance;Verbal cueing;Increased time to complete UE Bathing: Contact guard assistance;Increased time to complete;Setup LE Bathing: Contact guard assistance;Increased time to complete;Setup UE Dressing: Minimal assistance;Increased time to complete;Setup LE Dressing: Minimal assistance;Increased time to complete;Setup Toileting: Minimal assistance;Setup;Increased time to complete (Pt completed toileting tasks requiring Min A for brief change d/t decreased balance and weakness. Pt completed pericare with SBA, demonstrated good functinonal reach to grab TP and wipe self from behind.) Tone RUE RUE Tone: Normotonic Tone LUE LUE Tone: Normotonic Coordination Movements Are Fluid And Coordinated: Yes Bed mobility Supine to Sit: (Pt already seated in bed d/t RN administering meds upon arrival.) Sit to Supine: (Retired to recliner chair at end of session) Scooting: Minimal assistance Transfers Sit to stand: Contact guard assistance Stand to sit: Contact guard assistance Transfer Comments: Pt completed sit<>stand with CGA, required VCs for appropriate hand placement on bed. Cognition Overall Cognitive Status: Exceptions Arousal/Alertness: Appropriate responses to stimuli Following Commands: Follows multistep commands with increased time Attention Span: Appears intact Safety Judgement: Decreased awareness of need for assistance Problem Solving: Assistance required to implement solutions Insights: Decreased awareness of deficits Initiation: Requires cues for some Sequencing: Requires cues for some Sensation Overall Sensation Status: WFL (Pt denies numbness/tingling) LUE AROM (degrees) LUE AROM : WFL Left Hand AROM (degrees) Left Hand AROM: WFL RUE AROM (degrees) RUE AROM : WFL Right Hand AROM (degrees) Right Hand AROM: WFL LUE Strength Gross LUE Strength: Exceptions to WFL L Shoulder Flex: 4/5 L Shoulder Ext: 4/5 L Elbow Flex: 4/5 L Elbow Ext: (KRAIG d/t pt's reported increased fatigue) L Hand General: 4/5 LUE Strength Comment: grossly 4/5 RUE Strength Gross RUE Strength: Exceptions to WFL R Shoulder Flex: 4/5 R Shoulder Ext: 4/5 R Elbow Flex: 4/5 R Elbow Ext: (KRAIG d/t pt's reported increased fatigue) R Hand General: 4/5 RUE Strength Comment: grossly 4/5 Plan Plan Times per week: 3-4xwk Current Treatment Recommendations: Balance Training,Functional Mobility Training,Endurance Training,Safety Education & Training,Patient/Caregiver Education & Training,Equipment Evaluation, Education, & procurement,Self-Care / ADL,Home Management Training AM-PAC Score AM-PAC Inpatient Daily Activity Raw Score: 18 (09/30/211709) AM-PAC Inpatient ADL T-Scale Score : 38.66 (09/30/211709) ADL Inpatient CMS 0-100% Score: 46.65 (09/30/211709) ADL Inpatient CMS G-Code Modifier : CK (09/30/211709) Goals Short term goals Time Frame for Short term goals: By discharge, pt will: Short term goal 1: Demo bed mobility with CGA to promote engagement in ADLs/IADLs Short term goal 2: Demo functional transfers/mobility with SBA and LRD PRN Short term goal 3: Demo +15 minutes of dynamic standing balance with SBA to increase independence in ADLs/IADLs Short term goal 4: Participate in +7 minutes of FMC tasks to increase functional use during ADLs/IADLs Short term goal 5: Follow 85% of two step commands throughout session to increase cognition to improve independence in ADLs/IADLs Short term goal 6: Demo UB and LB dressing with CGA Short term goal 7: Demo good safety awareness throughout session with <2 VCs Therapy Time Individual Concurrent Group Co-treatment Time In 0835 Time Out 0916 Minutes 41 Timed Code Treatment Minutes: 23 Minutes Dayna Yates OTS Spinning Lathe Operator Hydraulic reached out to refinery operator helper crude unit on 2C to obtain lung scans from [facility]. weight and test bar clerk attempting to reach out, food writer will reevaluate Attempted assessment/education but post acute care nurse practitioner assisting pt with personal care/needs. PULMONARY & CRITICAL CARE MEDICINE PROGRESS NOTE Patient: Yamila Lozada Admit date: 09/28/2021 Primary Care Physician: Diaz Betts MD Consulting Physician: Maycol Gomez MD CODE Status: Full Code LOS: 2 SUBJECTIVE Chief Complaint/ Reason for consult: Pneumonia Hospital Course: The patient is a 41 y.o. female with past medical history of MRDD initially went to the [facility] for nausea, shivering, chills and altered mental status. Patient was found to have DKA with bilateral lower lobe pneumonia. CTA negative for PE but it showed 13 mm pulmonary nodule. Patient was transferred to [facility] for further care. In ICU she was treated with fluids and insulin infusion eventually was bridged with insulin. On the floor she is doing fine she denies any productive cough, chest pain, shortness of breath, fever, chills, abdominal pain, dizziness. On room air saturating well. Currently patient is being treated for community-acquired pneumonia with ceftriaxone and azithromycin. Of note she saw general surgeon on 09/24 for right arm abscess which was drained. For for drainage she was prescribed Augmentin by primary care. Review Of Systems: Review of Systems Constitutional: Positive for chills. HENT: Negative. Eyes: Negative. Respiratory: Negative. Cardiovascular: Negative. Gastrointestinal: Negative. Endocrine: Negative. Genitourinary: Negative. Musculoskeletal: Negative. Skin: Negative. Neurological: Negative. Hematological: Negative. Psychiatric/Behavioral: Negative. OBJECTIVE PaO2/FiO2 RATIO: No results for input(s): POCPO2 in the last 72 hours. VITAL SIGNS: LAST: BP 124/74 Pulse 90 Temp 97 F (36.1 C) (Temporal) Resp 18 Ht 5' (1.524 m) Wt 223 lb 3.2 oz (101.2 kg) SpO2 100% BMI 43.59 kg/m 8-24 HR RANGE: TEMP Temp Av.8 F (36.6 C) Min: 96.9 F (36.1 C) Max: 98.8 F (37.1 C) BP Systolic (24hrs), Av , Min:101 , Max:134 Diastolic (24hrs), Av, Min:63, Max:74 PULSE Pulse Av.7 Min: 90 Max: 98 RR Resp Av Min: 18 Max: 18 O2 SAT SpO2 Av.5 % Min: 97 % Max: 100 % OXYGEN DELIVERY O2 Flow Rate (L/min) Av L/min Min: 0 L/min Max: 0 L/min Systemic Examination: Physical Exam - Constitutional: Alert, cooperative and no distress. Mental Status: Oriented to person, place and time and normal affect. Lungs: Bilateral air entry present, lung poe clear. Normal effort. Heart: Regular rate and rhythm, no murmur. Abdomen: Soft, nontender, nondistended, normal bowel sounds. Extremities: No edema, redness, tenderness in the calves. Skin: Warm, dry, no gross lesions or rashes. DATA REVIEW Medications: Current Inpatient Scheduled Meds: insulin glargine 10 Units SubCUTAneous Once [START ON 10/01/2021] insulin glargine 20 Units SubCUTAneous Nightly fluconazole 200 mg Oral Daily insulin lispro 0-18 Units SubCUTAneous 4x Daily AC & HS [Held by provider] heparin (porcine) 5,000 Units SubCUTAneous 3 times per day cefTRIAXone (ROCEPHIN) IV 1,000 mg IntraVENous Q24H azithromycin 500 mg IntraVENous Q24H Continuous Infusions: sodium bicarbonate infusion dextrose dextrose 5 % and 0.45 % NaCl Stopped (09/29/21 0712) INPUT/OUTPUT: In: 1913 [I.V.:1737] Out: 2750 [Urine:2750] Date 09/30/21 0000 - 09/30/21 2359 Shift 3974-6908 1397-2685 6807-4854 24 Hour Total INTAKE Shift Total(mL/kg) OUTPUT Urine(mL/kg/hr) 500(0.6) 1000 1500 Shift Total(mL/kg) 500(4.9) 1000(9.9) 1500(14.8) Weight (kg) 101.2 101.2 101.2 101.2 LABS: ABGs: No results for input(s): POCPH, POCPCO2, POCPO2, POCHCO3, IWST0MMS in the last 72 hours. CBC: Recent Labs 09/28/21 1027 09/29/21 0501 09/30/21 0612 WBC 12.6* 8.8 4.3 HGB 12.8 10.8* 10.2* HCT 36.2* 34.1* 30.9* MCV 82.3* 88.6 88.0 PLT See Reflexed IPF Result 107* 70* LYMPHOPCT 8* 21* 28 RBC 4.40 3.85* 3.51* MCH 29.1 28.1 29.1 MCHC 35.4* 31.7 33.0 RDW 13.2 14.0 14.2 CRP: No results for input(s): CRP in the last 72 hours. LDH: No results for input(s): LDH in the last 72 hours. BMP: Recent Labs 09/28/21 1757 09/28/21 1757 09/28/21 2157 09/29/21 0153 09/29/21 0501 09/29/21 0858 09/30/21 0437 NA 139 < > 131* 133* 133* 129* 147* K 4.5 < > 3.4* 3.7 3.4* 4.1 4.2 CL 113* < > 110* 113* 110* 106 119* CO2 16* < > 15* 13* 12* 12* 11* BUN 33* < > 32* 32* 32* 32* 35* CREATININE 2.20* < > 2.24* 2.39* 2.29* 2.30* 2.06* GLUCOSE 231* < > 156* 127* 217* 301* 160* PHOS 1.6* -- 1.9* 1.9* 3.0 3.1 -- < > = values in this interval not displayed. Liver Function Test: No results for input(s): PROT, LABALBU, ALT, AST, GGT, ALKPHOS, BILITOT in the last 72 hours. Coagulation Profile: No results for input(s): INR, PROTIME, APTT in the last 72 hours. D-Dimer: No results for input(s): DDIMER in the last 72 hours. Lactic Acid: No results for input(s): LACTA in the last 72 hours. Cardiac Enzymes: No results for input(s): CKTOTAL, CKMB, CKMBINDEX, TROPONINI in the last 72 hours. Invalid input(s): TROPONIN, HSTROP BNP/ProBNP: No results for input(s): BNP, PROBNP in the last 72 hours. Triglycerides: No results for input(s): TRIG in the last 72 hours. Microbiology: Urine Culture: No components found for: CURINE Blood Culture: No components found for: CBLOOD, CFUNGUSBL Sputum Culture: No components found for: CSPUTUM Recent Labs 09/28/21 1139 SPECDESC .CLEAN CATCH URINE SPECIAL NOT REPORTED CULTURE YEAST, NOT SHENG ALBICANS OR SHENG DUBLINIENSIS 10 to 50,000 CFU/ML* YEAST, NOT SHENG ALBICANS OR SHENG DUBLINIENSIS 10 to 50,000 CFU/ML DIFFERENT COLONY MORPHOLOGY* Recent Labs 09/28/21 1008 09/28/21 1008 09/28/21 1027 09/28/21 1138 09/28/21 1139 SPECDESC .BLOOD < > .BLOOD .NASAL SWAB .CLEAN CATCH URINE SPECIAL L HAND 2ML -- NOT REPORTED -- NOT REPORTED CULTURE NO GROWTH 2 DAYS -- NO GROWTH 2 DAYS -- YEAST, NOT SHENG ALBICANS OR SHENG DUBLINIENSIS 10 to 50,000 CFU/ML* YEAST, NOT SHENG ALBICANS OR SHENG DUBLINIENSIS 10 to 50,000 CFU/ML DIFFERENT COLONY MORPHOLOGY* < > = values in this interval not displayed. Pathology: Radiology Reports: XR CHEST PORTABLE Final Result Bilateral scattered pulmonary opacities consistent with multifocal airspace disease/pneumonia. No extrapleural air. Echocardiogram: No results found for this or any previous visit. ASSESSMENT AND PLAN Assessment: DKA secondary type I Community-acquired pneumonia MRDD 13 mm lung nodule Plan: Labs, charts and images been reviewed. Patient is able to eat and drink. Continue antibiotics, follow-up on respiratory cultures. Continue insulin as per primary. Follow-up outpatient with repeat CT scan in 3 months. PT/OT We will continue to follow. I will discuss with attending. Keith Bailey MD PGY-3, Internal medicine resident [facility], [place], [place] Please note that this chart was generated using voice recognition [employer] dictation software. Although every effort was made to ensure the accuracy of this automated behavioral health specialist, some errors in behavioral health specialist may have occurred. Attending Physician Statement I have discussed the care of Yamila Lozada, including pertinent history and exam findings with the resident. I have reviewed the timmons elements of all parts of the encounter with the resident. I have seen and examined the patient with the resident. I agree with the assessment and plan and status of the problem list as documented. I seen the patient during my round today, chart reviewed, labs and medications reviewed I see events noted. History reviewed. Patient had symptoms for 2 days prior to admission to ICU with diabetic ketoacidosis was complaining of cough without fever did not have any chest pain but complained of shortness of breath likely tachypnea from diabetic ketoacidosis. She was treated in the ICU for diabetic ketoacidosis and was transferred out of ICU currently does not complain of nausea vomiting decreased appetite is present. Patient was also started on treatment for pneumonia with Rocephin and Zithromax as a CT scan of the chest done in [facility] before she was transferred shows right upper lobe possible groundglass infiltrate/pneumonia and right middle lobe 13 mm nodule which according to radiology report (I do not have any images available from [facility]) could be infectious inflammatory or other etiology. Patient does not have any history of smoking and she is 41 years old. Currently she is on room air maintaining saturation she does have mild cough denies sputum production chest pain or hemoptysis. On review of the labs she is hyperchloremic anion gap is still elevated creatinine is 2.06 sodium 147 and she look still dehydrated. Fluid management and management of diabetes per primary service. Continue with antibiotic with Rocephin and Zithromax. DVT prophylaxis, currently heparin is on hold per primary service because of platelet count 70 Repeat chest x-ray PA lateral view tomorrow. Will need CT scan of the chest images to review not available at this time and will request. She will need CT scan of the chest for follow-up in 3 months after discharge she will need follow-up also. Discussed with nursing staff, treatment and plan discussed. Please note that this chart was generated using voice recognition [employer] dictation software. Although every effort was made to ensure the accuracy of this automated behavioral health specialist, some errors in behavioral health specialist may have occurred. Leonel Draper MD 09/30/2021 3:36 PM RN attempted to call mother of patient, Lynne, to give update on pt's status, with no answer. Will try again later. Physical Therapy Facility/Department: [address] [facility] Initial Assessment NAME: Yamila Lozada : 1980 Yamila Lozada is a 41 y.o. Non- / non female who presents with No chief complaint on file. and is admitted to the hospital for the management of DKA, type 1, not at goal (HCC). Date of Service: 09/30/2021 Discharge Recommendations: Further therapy recommended at discharge. PT Equipment Recommendations Equipment Needed: Yes Mobility Devices: Walker Walker: Rollator (4 Wheeled) Assessment Body structures, Functions, Activity limitations: Decreased functional mobility ;Decreased balance;Decreased endurance;Decreased strength Assessment: The pt required Min A for bed mobility, CGA for transfers and ambulating 20ft with RW. Recommend continued PT to address deficits and progress toward prior level of independence. The pt currently requires 24hr assistance for mobility due to endurance deficits and decreased risk of falls. Prognosis: Good Decision Making: Medium Complexity PT Education: Goals;PT Role;Plan of Care;Functional Mobility Training REQUIRES PT FOLLOW UP: Yes Activity Tolerance Activity Tolerance: Patient limited by endurance Patient Diagnosis(es): There were no encounter diagnoses. has a past medical history of Developmental delay, DM (diabetes mellitus), type 1 (HCC), GERD (gastroesophageal reflux disease), HLD (hyperlipidemia), and Lung nodule. has a past surgical history that includes Tonsillectomy; Cholecystectomy; and Tubal ligation (Bilateral, 2018). Restrictions Restrictions/Precautions Restrictions/Precautions: Fall Risk,Up as Tolerated Required Braces or Orthoses?: No Vision/Hearing Vision: Impaired Vision Exceptions: Wears glasses at all times Hearing: Within functional limits Subjective General Patient assessed for rehabilitation services?: Yes Family / Caregiver Present: No Follows Commands: Within Functional Limits Subjective Subjective: RN and pt agreeable to PT. Pt supine in bed upon arrival, progressing toward sitting EOB with RN present. Pt pleasant and cooperative throughout. Pain Screening Patient Currently in Pain: Denies Vital Signs Patient Currently in Pain: Denies Orientation Orientation Overall Orientation Status: Within Functional Limits Social/Functional History Social/Functional History Lives With: Spouse Type of Home: Apartment (3rd floor) Home Layout: One level (laundry on same floor) Home Access: Elevator,Stairs to enter with rails Entrance Stairs - Number of Steps: 3 Entrance Stairs - Rails: Both Bathroom Shower/Tub: Tub/Shower unit Bathroom Toilet: Standard Receives Help From: Family ADL Assistance: Independent Homemaking Assistance: Independent Homemaking Responsibilities: Yes Ambulation Assistance: Independent Transfer Assistance: Independent Active Black Pickler: No Patient's Black Pickler Info: mother drives Occupation: Unemployed Leisure & Hobbies: Enjoys cooking Additional Comments: Pt reports is able to provide 24hr assistance, mother lives nearby and able to assist PRN. Cognition Cognition Overall Cognitive Status: Exceptions Arousal/Alertness: Appropriate responses to stimuli Following Commands: Follows multistep commands with increased time Attention Span: Appears intact Safety Judgement: Decreased awareness of need for assistance Problem Solving: Assistance required to implement solutions Insights: Decreased awareness of deficits Initiation: Requires cues for some Sequencing: Requires cues for some Objective Joint Mobility Spine: WFL ROM RLE: WFL ROM LLE: WFL ROM RUE: WFL ROM LUE: WFL Strength RLE Strength RLE: WFL Strength LLE Strength LLE: WFL Strength RUE Strength RUE: WFL Strength LUE Strength LUE: WFL Tone RLE RLE Tone: Normotonic Tone LLE LLE Tone: Normotonic Sensation Overall Sensation Status: WFL (Pt denies numbness/tingling) Bed mobility Supine to Sit: 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 Verbal cues for UE placement with good return. Ambulation Ambulation?: Yes Ambulation 1 Surface: level tile Device: Rolling Walker Assistance: Contact guard assistance Gait Deviations: Slow Azalia;Decreased step length;Decreased step height;Increased VELIA Distance: 10ft + 10ft Comments: verbal and tactile cues to maintain RW in VELIA with poor return Stairs/Curb Stairs?: No Balance Posture: Fair Sitting - Static: Good;- Sitting - Dynamic: Good;- Standing - Static: Fair;+ Standing - Dynamic: Fair Comments: standing balance assessed with RW Plan Plan Times per week: 5-6x/wk Current Treatment Recommendations: Strengthening,ROM,Balance Training,Functional Mobility Training,Transfer Training,Gait Training,Stair training,Endurance Training,Home Exercise Program,Safety Education & Training,Patient/Caregiver Education & Training Safety Devices Type of devices: Nurse notified,Call light within reach,Gait belt,Left in chair,Chair alarm in place Restraints Initially in place: No AM-PAC Score AM-PAC Inpatient Mobility Raw Score : 18 (09/30/211210) AM-PAC Inpatient T-Scale Score : 43.63 (09/30/211210) Mobility Inpatient CMS 0-100% Score: 46.58 (09/30/211210) Mobility Inpatient CMS G-Code Modifier : CK (09/30/211210) Goals Short term goals Time Frame for Short term goals: 14 visits Short term goal 1: Perform bed mobility and functional transfers indepedently Short term goal 2: Ambulate 300ft with least restrictive AD and SBA Short term goal 3: Demo Good dynamic standing balance Short term goal 4: Ascend/descend 3 steps with B HR and CGA Therapy Time Individual Concurrent Group Co-treatment Time In 0835 Time Out 0916 Minutes 41 Timed Code Treatment Minutes: 8 Minutes Chinyere Black PT Images from the original note were not included. [facility] Office: [phone] Hemal Charles DO, Steve Raza DO, Costa Cai DO, Gallito Lino DO, Natalee Negrete MD, Coreen Bryant MD, Shruti Bautista MD, Zulay Bueno MD, Priya Paul MD, Kevin Collins MD, Lyndsey Galindo MD, Morro Overton DO, Guido Serna DO, Rakel Aquino MD, Libby Samuel DO, Maycol Gomez MD, Kalyan Corbett MD, Shahzad Faria MD, Cee Casarez MD, Donavan Richardson MD, Autumn David CNP, Laurie Hernandez CNP, Veronica Garcia CNP, Ada Rascon, COLLEGE PROFESSOR, Jamal Soto, ENGINEER STEAM, Shellie Patton, ENGINEER STEAM, Dahiana Albarado, ENGINEER STEAM, Zandra Holly, ENGINEER STEAM, Andi Mcdonald, ENGINEER STEAM, Terrance Smalls PA-C, Dahiana Vyas DNP, Christina Tanner DNP, Karyna Hernandez, LUCIANO, Corina Bedoya, LUCIANO, Amber Dewey CNP, Archana Lockhart CNP, Emili Stapleton CNP, Nina Anthony CNP [facility] IN-PATIENT SERVICE [facility] Progress Note 09/30/2021 11:41 AM Name: Yamila Lozada Acct: [id number] Room: [address] [place] [address] IP Day: 2 Admit Date: 09/28/2021 9:38 AM PCP: Diaz Betts MD Code Status: Full Code Subjective: C/C: DKA Interval History Status: unchanged. Pt seen and evaluated this morning. She continues to feel ill. Continues to have a dry cough. She is denying fever, chills, nausea, vomiting, diarrhea. Brief History: Yamila Lozada is a 41 year old female who [facility]. Her presentation to ED on 09/26/21 showed her initial blood sugar of 816 with a beta-hydroxybutyrate 11.24, anion gap >25 with (+) ketones in urine. She was started on DKA protocol with bicarb drip, IVF and insulin drip and was transferred to [facility] on 09/28/21 for ICU admission and further treatment. In addition she had an elevated D-dimer. CTPE (-) for PE but concerning for RML pulmonary nodule and ill-defined ground glass opacification in the RUL concerning for PNA. She did have episodes of vomiting which have subsided. She was bridged to lantus insulin and insulin drip was discontinued. Transfer to med-surg bed 09/29/21 Review of Systems: Constitutional: negative for chills, fevers, sweats Respiratory: negative for cough, dyspnea on exertion, shortness of breath, wheezing Cardiovascular: negative for chest pain, chest pressure/discomfort, lower extremity edema, palpitations Gastrointestinal: negative for abdominal pain, constipation, diarrhea, nausea, vomiting Neurological: negative for dizziness, headache Medications: Allergies: Allergies Allergen Reactions Sulfamethoxazole-Trimethoprim Itching Current Meds: Scheduled Meds: insulin glargine 10 Units SubCUTAneous Once [START ON 10/01/2021] insulin glargine 20 Units SubCUTAneous Nightly fluconazole 200 mg Oral Daily insulin lispro 0-18 Units SubCUTAneous 4x Daily AC & HS heparin (porcine) 5,000 Units SubCUTAneous 3 times per day cefTRIAXone (ROCEPHIN) IV 1,000 mg IntraVENous Q24H azithromycin 500 mg IntraVENous Q24H Continuous Infusions: dextrose sodium chloride 100 mL/hr at 09/30/21 0841 dextrose 5 % and 0.45 % NaCl Stopped (09/29/21 0712) PRN Meds: glucose, dextrose, glucagon (rDNA), dextrose, acetaminophen, dextrose, magnesium sulfate, sodium phosphate IVPB OR sodium phosphate IVPB OR sodium phosphate IVPB, polyethylene glycol, dextrose 5 % and 0.45 % NaCl, ondansetron Data: Past Medical History: has a past medical history of Developmental delay, DM (diabetes mellitus), type 1 (HCC), GERD (gastroesophageal reflux disease), HLD (hyperlipidemia), and Lung nodule. Social History: reports that she has never smoked. She has never used smokeless tobacco. She reports that she does not drink alcohol and does not use drugs. Family History: Family History Problem Relation Age of Onset No Known Problems Mother Vitals: BP 118/74 Pulse 92 Temp 97.5 F (36.4 C) (Oral) Resp 18 Ht 5' (1.524 m) Wt 223 lb 3.2 oz (101.2 kg) SpO2 97% BMI 43.59 kg/m Temp (24hrs), Av F (36.7 C), Min:96.9 F (36.1 C), Max:98.8 F (37.1 C) Recent Labs 09/29/21 1842 09/29/21 2040 09/29/21 2320 09/30/21 0809 POCGLU 227* 166* 159* 210* I/O (24Hr): Intake/Output Summary (Last 24 hours) at 09/30/2021 1141 Last data filed at 09/30/2021 0958 Gross per 24 hour Intake 1081 ml Output 2475 ml Net -1394 ml Labs: Hematology: Recent Labs 09/28/21 1027 09/29/21 0501 09/30/21 0612 WBC 12.6* 8.8 4.3 RBC 4.40 3.85* 3.51* HGB 12.8 10.8* 10.2* HCT 36.2* 34.1* 30.9* MCV 82.3* 88.6 88.0 MCH 29.1 28.1 29.1 MCHC 35.4* 31.7 33.0 RDW 13.2 14.0 14.2 PLT See Reflexed IPF Result 107* 70* MPV NOT REPORTED 9.0 8.5 Chemistry: Recent Labs 09/28/21 1101 09/28/21 1348 09/29/21 0153 09/29/21 0153 09/29/21 0501 09/29/21 0858 09/30/21 0437 NA -- < > 133* < > 133* 129* 147* K -- < > 3.7 < > 3.4* 4.1 4.2 CL -- < > 113* < > 110* 106 119* CO2 -- < > 13* < > 12* 12* 11* GLUCOSE -- < > 127* < > 217* 301* 160* BUN -- < > 32* < > 32* 32* 35* CREATININE -- < > 2.39* < > 2.29* 2.30* 2.06* MG -- < > 1.9 -- 1.8 1.7 -- ANIONGAP -- < > 7* < > 11 11 17 LABGLOM -- < > 22* < > 23* 23* 26* GFRAA -- < > 27* < > 28* 28* 32* CALCIUM -- < > 8.0* < > 8.0* 7.8* 8.6 PHOS -- < > 1.9* -- 3.0 3.1 -- LACTACIDWB 1.4 -- -- -- -- -- -- < > = values in this interval not displayed. Recent Labs 09/29/21 0836 09/29/21 1208 09/29/21 1842 09/29/21 2040 09/29/21 2320 09/30/21 0809 POCGLU 269* 290* 227* 166* 159* 210* ABG: Lab Results Component Value Date FIO2 INFORMATION NOT PROVIDED 09/29/2021 Lab Results Component Value Date/Time SPECIAL NOT REPORTED 09/28/2021 11:39 AM Lab Results Component Value Date/Time CULTURE (A) 09/28/2021 11:39 AM YEAST, NOT SHENG ALBICANS OR SHENG DUBLINIENSIS 10 to 50,000 CFU/ML CULTURE (A) 09/28/2021 11:39 AM YEAST, NOT SHENG ALBICANS OR SHENG DUBLINIENSIS 10 to 50,000 CFU/ML DIFFERENT COLONY MORPHOLOGY Radiology: XR CHEST PORTABLE Result Date: 09/28/2021 Bilateral scattered pulmonary opacities consistent with multifocal airspace disease/pneumonia. No extrapleural air. Physical Examination: General appearance: alert, cooperative and no distress Mental Status: oriented to person, place and time and normal affect Lungs: clear to auscultation bilaterally, normal effort Heart: regular rate and rhythm, no murmur Abdomen: soft, nontender, nondistended, normal bowel sounds, no masses, hepatomegaly, splenomegaly Extremities: no edema, redness, tenderness in the calves. Skin: no gross lesions, rashes, induration. There is a known ulceration on the medial portion of the right antecubital fossa with an overlying clean, dry and intact dressing. Assessment: Hospital Problems Last Modified POA * (Principal) DKA, type 1, not at goal (HCC) 09/29/2021 Yes Pneumonia due to infectious organism 09/29/2021 Yes Mental developmental delay 09/29/2021 Yes Plan: DKA - gap climbing (17), bicarb 11. Will start basal insulin 10U this a.m, 10U this p.m. Start 20U qhs on 10/01. Continue blood glucose checks AC/HS with sliding scale coverage. Will check stat electrolytes, beta-hydroxy, venous blood gas. If she is in DKA will start an insulin drip. Electrolyte checks q6h, replete as necessary. Hyperchloremic acidosis noted. Stop NS, start 100 mEq HCO3 in D5 @ 100 ml/h. Monitor urine output. Hypernatremia - secondary to free water deficit in the setting of DKA. Hypotonic bicarb drip should help. Continue to monitor Acute kidney injury with ATN - secondary to decreased EABV in the setting of DKA. Needs fluid resuscitation. Creatinine is normal at baseline. Granular casts noted in UA suggesting ATN. Continue to monitor renal function daily. Consult nephrology if worsening. CAP - reviewed CXR suggesting multifocal PNA. Continue rocephin/azithro as ordered Hypernatremia - secondary to free water deficit. Change fluids to bicarb hypotonic solution. This should help. Right arm ulceration - obtain wound culture. Continue local wound care Thrombocytopenia - diffuse bruising noted. Platelets 70. Will obtain PT/INR. Check CMP. This is likely secondary to sepsis/acute illness. Hold DVT prophylaxis for now. Continue to monitor 13 mm pulmonary nodule noted [facility]. Will need repeat CT in 3 months based on Fleischner criteria Terrance Smalls PA-C 09/30/2021 11:41 AM Critical care team - Resident sign-out to medicine service Date and time: 09/29/2021 3:09 PM Patient's name: Yamila Lozada Patient's account/billing number: [id number] Patient's Date of : 1980 Age: 41 y.o. Date of Admission: 09/28/2021 9:38 AM Length of stay during current admission: 1 Primary Care Physician: Diaz Betts MD Code Status: Full Code Mode of physician to physician communication: [x] Via telephone [] In person Date and time of sign-out: 09/29/2021 3:09 PM Accepting Internal Medicine resident: Corina Bedoya N.P. Accepting Medicine team: Intermed Accepting team's attending: Dr. Maycol Gomez Patient's current ICU Bed: 105 Patient's assigned bed on floor: 161 [] Med-Surg Monitored [x] Step-down [] Psychiatry ICU [] Psych floor Reason for ICU admission: DKA ICU course summary: 41-year-old female with history of MRDD, diabetes mellitus came from [facility] after presenting there with altered mental status and found to be in DKA. Over that patient was started on an insulin drip, Ringer lactate, bicarb drip. Transferred to [facility] for further management. Overnight was bridged to Lantus, tolerating diet. On admission her D-dimer was high, CT PE negative for emboli but concerning for pneumonia as well as right middle lobe 13 mm pulmonary nodule. Patient is being treated with ceftriaxone and azithromycin for pneumonia and UTI, Diflucan added for yeast in urine. greeter guest services consulted Current Vitals: BP (!) 109/59 Pulse 91 Temp 98.4 F (36.9 C) (Axillary) Resp 24 Ht 5' (1.524 m) Wt 223 lb 3.2 oz (101.2 kg) SpO2 98% BMI 43.59 kg/m Assessment: Patient Active Problem List Diagnosis Date Noted DKA, type 1, not at goal (HCC) 09/27/2021 Recommended Follow-up: 1. Optimize insulin regimen. 2. Outpatient follow-up for pulmonary nodule 3. Advance diet as tolerated Above mentioned assessment and plan was discussed by me with the admitting medicine resident. The medicine team assigned to the patient by medicine admitting resident will be following up the patient from now onwards on the floor. Mi Giron Sra, MD, M.D. PGY-2 IM Resident 09/29/2021, 3:09 PM Critical Care Team - Daily Progress Note Date and time: 09/29/2021 8:19 AM Patient's name: Yamila Lozada Patient's account/billing number: [id number] Patient's Date of : 1980 Age: 41 y.o. Date of Admission: 09/28/2021 9:38 AM Length of stay during current admission: 1 Primary Care Physician: Diaz Betts MD Code Status: Full Code Reason for ICU admission: DKA SUBJECTIVE: OVERNIGHT EVENTS: Afebrile, vitals stable, continues to be tachycardic. Overnight she was bridged to Lantus per DKA protocol. Latest labs reveal sodium 133, potassium 3.4, bicarb 12, creatinine 2.29, glucose 217 Hemoglobin stable at 10.8 Making good urine 985 mL over last 24 hours Having bowel movement Patient has not been eating, will start diet as tolerated. Patient does not know her insulin dose, neither does her , different doses given on chart review F.A.S.T. M. H.U.G.S. B.I.D. Feeding Diet: Diet NPO Fluids: Normal saline at 100 mL per Family: updated, ethics involved Analgesic: Tylenol as needed Sedation: None Thrombo-prophylaxis: [] Enoxaparin, [x] Unfract. Heparin Subcutaneously, [] EPC Cuffs Mobility: As tolerated Heads up: 30 degree Ulcer prophylaxis: [] PPI Agent, [] K0Nrgti, [] Sucralfate, [] Other: Not indicated Glycemic control: Being treated for DKA, bridged with Lantus Spontaneous breathing trial: Not indicated Bowel regimen/urine output: Having bowel movement/good urine output 985 mL over last 24 hours Indwelling catheter/lines: Peripheral IVs De-escalation: Follow BMP, optimize insulin regimen OBJECTIVE: VITAL SIGNS: BP 119/68 Pulse 110 Temp 99.4 F (37.4 C) (Axillary) Resp 19 Ht 5' (1.524 m) Wt 223 lb 3.2 oz (101.2 kg) SpO2 98% BMI 43.59 kg/m Tmax over 24 hours: Temp (24hrs), Av F (37.2 C), Min:97.5 F (36.4 C), Max:99.5 F (37.5 C) Patient Vitals for the past 6 hrs: BP Temp Temp src Pulse Resp SpO2 Weight 09/29/21 0800 119/68 99.4 F (37.4 C) Axillary 110 19 98 % 09/29/21 0700 (!) 95/51 107 19 90 % 09/29/21 0600 113/66 98.8 F (37.1 C) Axillary 108 19 99 % 223 lb 3.2 oz (101.2 kg) 09/29/21 0500 125/70 101 19 100 % 09/29/21 0400 116/68 98.6 F (37 C) Axillary 106 12 99 % 09/29/21 0300 125/65 105 16 98 % Intake/Output Summary (Last 24 hours) at 09/29/2021 0819 Last data filed at 09/29/2021 0800 Gross per 24 hour Intake 5782 ml Output 1260 ml Net 4522 ml Wt Readings from Last 2 Encounters: 09/29/21 223 lb 3.2 oz (101.2 kg) Body mass index is 43.59 kg/m . PHYSICAL EXAMINATION: Constitutional: Appears well, in mild distress EENT: PERRLA, EOMI, sclera clear, no lesions, neck supple with midline trachea. Neck: Supple, symmetrical, trachea midline, no adenopathy, no jvd, skin normal Respiratory: clear to auscultation, no wheezes or rales and unlabored breathing. Cardiovascular: regular rate and rhythm, normal S1, S2, no murmur noted Abdomen: soft, nontender, nondistended, no masses or organomegaly Extremities: peripheral pulses normal, no pedal edema, no clubbing or cyanosis Neuro: moves all 4 extremities Any additional physical findings: MEDICATIONS: Scheduled Meds: insulin lispro 0-6 Units SubCUTAneous TID WC insulin lispro 0-3 Units SubCUTAneous Nightly heparin (porcine) 5,000 Units SubCUTAneous 3 times per day cefTRIAXone (ROCEPHIN) IV 1,000 mg IntraVENous Q24H azithromycin 500 mg IntraVENous Q24H Continuous Infusions: dextrose sodium chloride 100 mL/hr at 09/29/21 0732 dextrose 5 % and 0.45 % NaCl Stopped (09/29/21 0712) insulin Stopped (09/29/21 0233) PRN Meds: glucose, 15 g, PRN dextrose, 12.5 g, PRN glucagon (rDNA), 1 mg, PRN dextrose, 100 mL/hr, PRN acetaminophen, 650 mg, Q4H PRN dextrose, 12.5 g, PRN potassium chloride, 10 mEq, PRN magnesium sulfate, 1,000 mg, PRN sodium phosphate IVPB, 10 mmol, PRN Or sodium phosphate IVPB, 15 mmol, PRN Or sodium phosphate IVPB, 20 mmol, PRN polyethylene glycol, 17 g, Daily PRN dextrose 5 % and 0.45 % NaCl, , Continuous PRN ondansetron, 4 mg, Q6H PRN VENT SETTINGS (Comprehensive) (if applicable): Vent Information SpO2: 98 % Additional Respiratory Assessments Pulse: 110 Resp: 19 SpO2: 98 % Laboratory findings: Complete Blood Count: Recent Labs 09/28/21 1027 09/29/21 0501 WBC 12.6* 8.8 HGB 12.8 10.8* HCT 36.2* 34.1* PLT See Reflexed IPF Result 107* Last 3 Blood Glucose: Recent Labs 09/28/21 2157 09/29/21 0153 09/29/21 0501 GLUCOSE 156* 127* 217* PT/INR: No results found for: PROTIME, INR PTT: No results found for: APTT, PTT Comprehensive Metabolic Profile: Recent Labs 09/28/21 2157 09/29/21 0153 09/29/21 0501 NA 131* 133* 133* K 3.4* 3.7 3.4* CL 110* 113* 110* CO2 15* 13* 12* BUN 32* 32* 32* CREATININE 2.24* 2.39* 2.29* GLUCOSE 156* 127* 217* CALCIUM 8.5* 8.0* 8.0* Magnesium: Lab Results Component Value Date MG 1.8 09/29/2021 Phosphorus: Lab Results Component Value Date PHOS 3.0 09/29/2021 Ionized Calcium: No results found for: CAION Urinalysis: Troponin: No results for input(s): TROPONINI in the last 72 hours. ASSESSMENT: Active Problems: DKA, type 1, not at goal (HCC) Resolved Problems: * No resolved hospital problems. * PLAN: NEUROLOGIC: - Awake, not oriented, not answerIng questions with h/o MRDD CARDIOVASCULAR: BP stable, tachycardic, will monitor for now. PULMONARY: -Saturating well on room air -CXR at outlying facility concerning for pneumonia, CTPE negative for PE, but right middle lobe 13 mm pulmonary nodule and showed ill-defined groundglass opacification in the right upper lobe concerning for pneumonia/atelectasis. -Patient continued on ceftriaxone and azithromycin RENAL/FLUID/ELECTROLYTE: DREW secondary to dehydration /osmotic diuresis, history of CKD?? - currently on normal saline at 100 mL/h, started on diet as tolerated - will monitor renal function and electrolytes, replace PRN GI/NUTRITION: -Started on diet as tolerated - Antiemetics PRN ID/HEME: -On antibiotics for pneumonia/UTI - will follow cultures ENDOCRINE: -Overnight bridged with Lantus, follow repeat BMP, optimize insulin regimen DVT PROPHYLAXIS: Heparin Mi Giron Sra, MD Department of Critical Care [facility] [place], [place] 09/29/2021, 8:19 AM Associated attestation - Gian Marr MD - 09/29/2021 7:26 PM EST Attending Physician Statement I have discussed the case of Yamila Lozada, including pertinent history and exam findings with the resident/fellow/medical student/CHIEF OPERATOR/PA. I have seen and examined the patient and the timmons elements of the encounter have been performed by me. I agree with the assessment, plan and orders as documented by the resident/fellow/medical student/CHIEF OPERATOR/PA With changes made to the note as needed. Pt was seen during rounds. Review of Systems: In addition to the pertinent positives and negatives as stated within HPI and the review of systems as documented in their notes, all other systems were reviewed when able to and are reported negative. Adjust insulin for hyperglycemia Slight hyponatremia, continue to monitor Supplement potassium for hypokalemia Renal function is stable with elevated creatinine of 2.29 Leukocytosis improving Start oral diet Patient is on subcutaneous heparin Anemia slightly worse, continue to monitor We will transfer the patient to [facility] bed and we will follow the patient from pulmonary standpoint for lung nodule and pneumonia Continue antibiotics Total critical care time caring for this patient with life threatening, unstable organ failure, including direct patient contact, management of life support systems, review of data including imaging and labs, discussions with other team members and physicians at least 30 Min so far today, excluding procedures. Gian Marr MD 09/29/2021 7:25 PM RN talked with pastoral care, Ethics consult entered per roll finisher's recommendation for help with decision making and comprehension with medical care/needs since pt's is also MRDD and pt's mother does not fully comprehend medical care/needs, Dr Casarez agreeable Updated pt's mom Lynne and Braxton. Per Lynne, Braxton is also special needs like Yamila . She is aware that he is next of kin but she reports he has difficulty understanding things. When Braxton called he had a friend helping him because he couldn't make the call . He missed a phone call from case management because he doesn't know how to use the cell phone. There is no advanced directives for aYmila. They live in an Independent Living apartment in a senior citizen's community. Images from the original note were not included. [facility] Continence Nurse Consult Note NAME: Yamila Lozada AGE: 41 y.o. GENDER: female : 1980 TODAY'S DATE: 09/28/2021 Subjective: Reason for WOCN Evaluation and Assessment: Yamila Lozada is a 41 y.o. female referred by: [] Physician [] Nursing [] Other: Wound Identification: Wound Type: abscess, surgical Contributing Factors: diabetes and poor glucose control Per Care Everywhere EHR: Abscess top the rt proximal medial arm s/p I&D on 09/24/[address] Aliya Szymanski. Uncontrolled bleeding that same day. Patient went to ED. Single stitch noted in proximal wound. Cleocin 150mg tid x 5 days prescribed awaiting cultures. Rt distal arm hyperkeratosis lesion also discussed with plan to investigate at a later appointment. Objective: BP 132/70 Pulse 117 Temp 99.4 F (37.4 C) (Axillary) Resp 21 Ht 5' (1.524 m) Wt 210 lb 14.4 oz (95.7 kg) SpO2 97% BMI 41.19 kg/m Luis Risk Score: Luis Scale Score: 14 LABS CBC: Lab Results Component Value Date WBC 12.6 09/28/2021 RBC 4.40 09/28/2021 HGB 12.8 09/28/2021 CMP: Albumin: No results found for: LABALBU PT/INR: No results found for: PROTIME, INR HgBA1c: No results found for: LABA1C PTT: No components found for: LABPTT Assessment: Measurements: 09/28/21 1445 Wound 09/28/21 Brachial Anterior;Right Date First Assessed/Time First Assessed: 09/28/21 1000 Primary Wound Type: (c) Incision Location: Brachial Wound Location Orientation: Anterior;Right Wound Image Wound Etiology Surgical Dressing Status New dressing applied Wound Cleansed Irrigated with saline Dressing/Treatment Iodoform gauze;Dry dressing Dressing Change Due 09/29/21 Wound Length (cm) 3.7 cm Wound Width (cm) 1 cm Wound Depth (cm) 0.8 cm Wound Surface Area (cm^2) 3.7 cm^2 Wound Volume (cm^3) 2.96 cm^3 Wound Assessment Subcutaneous;[place]/red Drainage Amount Small Drainage Description Serosanguinous Odor None Jerilyn-wound Assessment Blanchable erythema;Edematous;Intact Response to treatment: Well tolerated by patient. Plan: Plan of Care: Irrigate the arm wound with NS Gently fill with Iodoform gauze Cover with dry gauze Change daily. routine pressure injury prevention and incontinence care. Specialty Bed Required : Yes [] Low Air Loss [x] Pressure Redistribution [] Fluid Immersion [] Bariatric [] Total Pressure Relief [] Other: Discharge Plan: tbd Follow up to Dr Aliya Szymanski as scheduled regarding the arm wounds. Patient/Caregiver Teaching: [] Indicates understanding [] Needs reinforcement [] Unsuccessful [] Verbal Understanding [] Demonstrated understanding [x] No evidence of learning [] Refused teaching [] N/A Pt arrived at 0930 receiving insulin 6units/hr and Sodium Bicarb 150meq in D5 at 100mL/hr. Pt received Zofran 4mg en route for nausea. BG 162 Vomited dark brown gastric contents upon arrival. documented in this encounter [facility] Phone: 09-29-2021 Hospital Discharge instructions Li Phelan RN - 09/29/2021 1:44 PM EST Images from the original note were not included. Continuity of Care Form Patient Name: Yamila Lozada : 1980 Admit date: 09/28/2021 Discharge date: 10/02/21 Code Status Order: Full Code Advance Directives: Admitting Physician: Jamal Levine MD PCP: Diaz Betts MD Discharging Nurse: Li ERICKSON Discharging Hospital Unit/Room#: 0105/0105-01 Discharging Unit Emergency Contact: Extended Emergency Contact Information Primary Emergency Contact: Braxton Lozada Relation: Spouse Secondary Emergency Contact: Jeanine Dunn Relation: Parent Past Surgical History: Past Surgical History: Procedure Laterality Date CHOLECYSTECTOMY TONSILLECTOMY TUBAL LIGATION Bilateral 2018 Immunization History: There is no immunization history on file for this patient. Active Problems: Patient Active Problem List Diagnosis Code DKA, type 1, not at goal (HCC) E10.10 Isolation/Infection: Isolation No Isolation Patient Infection Status None to display Nurse Assessment: Last Vital Signs: BP (!) 109/59 Pulse 91 Temp 98.4 F (36.9 C) (Axillary) Resp 24 Ht 5' (1.524 m) Wt 223 lb 3.2 oz (101.2 kg) SpO2 98% BMI 43.59 kg/m Last documented pain score (0-10 scale): Pain Level: 0 Last Weight: Wt Readings from Last 1 Encounters: 09/29/21 223 lb 3.2 oz (101.2 kg) Mental Status: oriented and alert IV Access: - None Nursing Mobility/ADLs: Walking Independent Transfer Independent Bathing Independent Dressing Independent Toileting Independent Feeding Independent Purchasing And Claims Supervisor Independent Med Delivery whole Wound Care Documentation and Therapy: Rt upper arm: Irrigate the arm wound with NS Gently fill with Iodoform gauze Cover with dry gauze Change daily. Wound 09/28/21 Brachial Anterior;Right (Active) Wound Image 09/28/21 1445 Wound Etiology Surgical 09/29/21 08 Dressing Status Clean;Dry;Intact 09/29/21 08 Wound Cleansed Irrigated with saline 09/28/21 1445 Dressing/Treatment Iodoform gauze;Dry dressing 09/28/21 1445 Dressing Change Due 09/29/21 09/29/21 08 Wound Length (cm) 3.7 cm 09/28/21 1445 Wound Width (cm) 1 cm 09/28/21 1445 Wound Depth (cm) 0.8 cm 09/28/21 1445 Wound Surface Area (cm^2) 3.7 cm^2 09/28/21 1445 Wound Volume (cm^3) 2.96 cm^3 09/28/21 1445 Wound Assessment Other (Comment) 09/29/21 08 Drainage Amount Small 09/28/21 1445 Drainage Description Serosanguinous 09/28/21 1445 Odor None 09/28/21 1445 Jerilyn-wound Assessment Other (Comment) 09/29/21 0800 Number of days: 1 Elimination: Continence: Bowel: Yes Bladder: Yes Urinary Catheter: None Colostomy/Ileostomy/Ileal Conduit: No Date of Last BM: 10/02/21 Intake/Output Summary (Last 24 hours) at 09/29/2021 1343 Last data filed at 09/29/2021 1200 Gross per 24 hour Intake 6055 ml Output 1175 ml Net 4880 ml I/O last 3 completed shifts: In: 4950 [I.V.:4539; IV Piggyback:411] Out: 985 [Urine:985] Safety Concerns: None Impairments/Disabilities: Vision Nutrition Therapy: Current Nutrition Therapy: - Oral Diet: General Routes of Feeding: Oral Liquids: No Restrictions Daily Fluid Restriction: no Last Modified Barium Swallow with Video (Video Swallowing Test): not done Treatments at the Time of Hospital Discharge: Respiratory Treatments: N/A Oxygen Therapy: is not on home oxygen therapy. Ventilator: - No ventilator support Rehab Therapies: Physical therapy, occupational therapy. Weight Bearing Status/Restrictions: No weight bearing restirctions Other Medical Equipment (for information only, NOT a DME order): None Other Treatments: wound care- iodoform packing with dry gauze and coband. Mother knows how to perform daily dressing changes. Patient's personal belongings (please select all that are sent with patient): None RN SIGNATURE: CASE MANAGEMENT/SOCIAL WORK SECTION Inpatient Status Date: 09/28/21 Readmission Risk Assessment Score: Readmission Risk Risk of Unplanned Readmission: 9 Discharging to Facility/ Agency [facility] [address] [facility] [address] Dialysis Facility (if applicable) Name: Address: Dialysis Schedule: Phone: Fax: Desulphuring Operator/Regulatory Manager signature: PHYSICIAN SECTION Prognosis: Good Condition at Discharge: Stable Rehab Potential (if transferring to Rehab): Good Recommended Labs or Other Treatments After Discharge: snf assessment, medication education, wound care Rt upper arm: Irrigate the arm wound with NS Gently fill with Iodoform gauze Cover with dry gauze Change daily. Physician Certification: I certify the above information and transfer of Yamila Lozada is necessary for the continuing treatment of the diagnosis listed and that she requires Home Care for greater 30 days. Update Admission H&P: No change in H&P PHYSICIAN SIGNATURE: Guido Serna DO - 10/02/2021 See PCP 1 week, get kidney function checked Start lantus 10 units BID, increase by 5 units daily if morning blood sugars >120 otherwise do not change Follow-up in 3 months with PCP for repeat CT scan chest for pulmonary nodule evaluation documented in this encounter [facility] Phone: Evaluation note Diagnosis DKA, type 1, not at goal (HCC)- Primary 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, uncontrolled Pneumonia due to infectious organism Mental developmental delay Unspecified delay in development Acute kidney injury (DREW) with acute tubular necrosis (ATN) ([facility]) High anion gap metabolic acidosis Acidosis documented in this encounter [facility] Phone: InstructionsNot on filedocumented in this encounter [facility] Narrative* Auth/Cert Specialty Diagnoses / Procedures Referred By Contac t Referred To Contact Diagnoses DKA, type 1, not at goal (HCC) DKA Jamal Levine MD [address] [address] [employer] [address] [place] [address] Referral ID Status Reason Start Date Expiration Date Visits Re quested Visits Authorized [id number] 04 [facility] Phone: Summary Purpose Family History No Family History Records FoundNo Family History Records FoundNo Family History Records FoundNo Family History Records FoundNo Family History Records FoundNo Family History Records FoundNo Family History Records FoundNo Family History Records FoundNo Family History Records Found Advance Directives No Advanced Directives Records FoundLatest Code Status on File Code Status Date Activated Date Inactivated Comments Full Code 09/28/2021 9:46 AM Latest Code Status on File Code Status Date Activated Date Inactivated Comments Full Code 06/05/2023 6:38 AM 06/05/2023 7:25 PM Code Status History Code Status Date Activated Date Inactivated Comments Full Code 03/02/2019 2:48 PM 03/03/2019 5:59 PM Additional Source Comments INFORMATION SOURCE (unrecogn ized section and content) DATE CREATED AUTHOR 02/07/2021 [facility] DATE CREATED AUTHOR AUTHOR'S ORGANIZ ATION 02/20/2021 [facility] DATE CREATED AUTHOR AUTHOR'S ORGANIZ ATION 06/06/2021 [facility] DATE CREATED AUTHOR AUTHOR'S ORGANIZ ATION 10/01/2021 [facility] DATE CREATED AUTHOR AUTHOR'S ORGANIZ ATION 10/06/2021 [facility] DATE CREATED AUTHOR AUTHOR'S ORGANIZ ATION 12/09/2022 [facility] DATE CREATED AUTHOR AUTHOR'S ORGANIZ ATION 01/13/[address] [facility] DATE CREATED AUTHOR AUTHOR'S ORGANIZ ATION 09/27/2023 [facility] DATE CREATED AUTHOR AUTHOR'S ORGANIZ ATION 09/27/2023 [facility] EPIC Ordered Prescriptions (unrec ognized section and content) Prescription Sig Dispensed Refills Start Date End Da te albuterol sulfate HFA 108 (90 Base) MCG/ACT inhaler Inhale 2 puffs into the lungs every 6 hours as needed for Wheezing or Shortness of Breath 1 each 0 10/03/2021 11/02/2021 Scheduled Active and Recently Administ ered Medications (unrecognized section and content) Medication Order 10/01/2021 10/02/2021 10/03/2021 azithromycin (ZITHROMAX) 500 mg in dextrose 5% 250 mL IVPB (CANCELED) 500 mg, IntraVENous, EVERY 24 HOURS, First dose on Mon09/28/21 at 1400, Until Discontinued 1505 (New Bag - Provider: Kaylan Mulligan RN)1605 (Stopped - Provider: Kaylan Mulligan RN) cefTRIAXone (ROCEPHIN) 1000 mg IVPB in 50 mL D5W minibag (CANCELED) 1,000 mg, IntraVENous, EVERY 24 HOURS, First dose on Mon09/28/21 at 1400, Until Discontinued 1331 (New Bag - Provider: Mary Wong)1401 (Stopped - Provider: Kaylan Mulligan RN) heparin (porcine) injection 5,000 Units 5,000 Units, SubCUTAneous, EVERY 8 HOURS SCHEDULED (3 times per day), First dose on Mon09/28/21 at 1400 0600 (Automatically Held - Provider: Terrance Smalls PA-C)1400 (Automatically Held - Provider: Terrance Smalls PA-C)1818 (Unheld by provider - Provider: Guido Serna DO)2109 (Given - Provider: Danica Platt RN) 0609 (Given - Provider: Danica Platt RN)1510 (Given - Provider: Li Phelan RN)2245 (Given - Provider: Chinyere Aquino RN) 0556 (Given - Provider: Cely Ro RN)1400 (Due - Provider: Guido Serna DO)2200 (Due - Provider: Guido Serna DO) insulin glargine (LANTUS) injection vial 20 Units 20 Units, SubCUTAneous, NIGHTLY, First dose on Mon10/01/21 at 2100 2058 (Given - Provider: Danica Platt RN) 2104 (Given - Provider: Cely Ro RN) 2100 (Due) insulin lispro (HUMALOG) injection vial 0-18 Units 0-18 Units, SubCUTAneous, 4 TIMES DAILY BEFORE MEALS & NIGHTLY, First dose (after last modification) on Mon09/29/21 at 1700, High Dose Corrective Algorithm Glucose: Dose: 70-139 No Insulin 140-199 3 Units 200-249 6 Units 250-299 9 Units 300-349 12 Units 350-400 15 Units Over 400 18 Units 0848 (Given - Provider: Mary Wong)1332 (Given - Provider: Mary Wong)1743 (Given - Provider: Mary Wong)2106 (Given - Provider: Danica Platt RN) 0807 (Not Given - Provider: Li Phelan RN - Reason: Order parameters not met - Comment: BS [phone] (Not Given - Provider: Li Phelan RN - Reason: Order parameters not met - Comment: BS 122)1754 (Not Given - Provider: Li Phelan RN - Reason: Order parameters not met - Comment: BS [phone] (Given - Provider: Cely Ro, RN) 0652 (Not Given - Provider: Cely Ro RN - Reason: Order parameters not met - Comment: [id number] (Given - Provider: Li Phelan RN)1700 (Due)2100 (Due) potassium phosphate 30 mmol in dextrose 5 % 250 mL IVPB (COMPLETED) 30 mmol, IntraVENous, at 62.5 mL/hr, Administer over 240 Minutes, ONCE, On Mon10/01/21 at 0730, For 1 dose 0850 (New Bag - Provider: Mary Wong)1250 (Stopped - Provider: Mary Wong) Continuous Medication Order 10/01/2021 10/02/2021 10/03/2021 sodium bicarbonate 100 mEq in dextrose 5 % 1,000 mL infusion (CANCELED) IntraVENous, at 50 mL/hr, CONTINUOUS, Starting on Mon09/30/21 at 1515 0850 (New Bag - Provider: Mary Wong)1838 (Rate/Dose Change - Provider: Mary Wong) PRN Medication Order 10/01/2021 10/02/2021 10/03/2021 acetaminophen (TYLENOL) 160 MG/5ML solution 650 mg 650 mg, Oral, EVERY 4 HOURS PRN, Pain Mild (1-3), Starting on Mon09/29/21 at 0739, Maximum dose of acetaminophen is 4000 mg from all sources in 24 hours. albuterol (PROVENTIL) nebulizer solution 2.5 mg 2.5 mg, Nebulization, As Directed - RT (PRN), Wheezing, Starting on Mon10/01/21 at 1028 2128 (Given - Provider: Azra Little RCP) dextrose 5 % and 0.45 % sodium chloride infusion IntraVENous, at 150 mL/hr, CONTINUOUS PRN, blood glucose less than 250 mg/dL, Starting on Mon09/28/21 at 0945, When blood glucose equals 250 mg/dL or below, DISCONTINUE saline IV Fluid using Per Protocol order mode and start using this dextrose containing IV fluid order. DO NOT restart saline infusion if subsequent blood glucose returns above 250 mg/dL. dextrose 5 % solution 100 mL/hr, IntraVENous, PRN, Low blood sugar, Starting on Mon09/29/21 at 0019, Start infusion following administration of dextrose 50% or glucagon. dextrose 50 % IV solution 12.5 g, IntraVENous, PRN, Low blood sugar, Starting on Mon09/28/21 at 0944, For blood glucose level less than 70 mg/dL. Check blood glucose every 15 minutes and repeat above if blood glucose is less than 70 mg/dL. dextrose 50 % IV solution 12.5 g, IntraVENous, PRN, Low blood sugar, Blood glucose less than 70 mg/dL and patient NOT ALERT or NPO., Starting on Mon09/29/21 at 0019, If patient does not respond within 5 minutes, repeat dose x1. Start D5W at 100 mL/hour until ordering provider can be reached. Repeat blood glucose in 15 minutes. If blood glucose is less than 70 mg/dL, repeat treatment and recheck blood glucose in 15 minutes x2. If using Glucostabilizer, dose as instructed per system. glucagon (rDNA) injection 1 mg 1 mg, IntraMUSCular, PRN, Low blood sugar, Blood glucose less than 70 mg/dL and patient NOT ALERT or NPO and does not have IV access., Starting on Mon09/29/21 at 0019, After administration, attempt intravenous access and start D5W at 100 mL/hr. Repeat blood glucose in 15 minutes x2 and notify provider. glucose (GLUTOSE) 40 % oral gel 15 g 15 g, Oral, PRN, Low blood sugar, Starting on Mon09/29/21 at 0019, If blood glucose less than 50 mg/dL and patient ALERT and TOLERATING PO, give 2 tubes glucose gel. If blood glucose less than 70 mg/dL and patient ALERT and TOLERATING PO, give 1 tube glucose gel. Repeat blood glucose in 15 minutes. If blood glucose is less than 70 mg/dL, repeat treatment and recheck blood glucose in 15 minutes x2 and notify provider. iohexol (OMNIPAQUE 240) injection 50 mL (COMPLETED) 50 mL, Oral, IMG ONCE PRN, Other, 50ml of omnipaque 240 into 1000ml of water., Starting on Mon10/01/21 at 0822, For 1 dose 1215 (Given - Provider: Mary Wong) loperamide (IMODIUM) capsule 2 mg 2 mg, Oral, 4 TIMES DAILY PRN, Diarrhea, Starting on Mon10/01/21 at 1600, After each loose stool. 1106 (Given - Provider: Li Phelan RN) magnesium sulfate 1000 mg in dextrose 5% 100 mL IVPB 1,000 mg, IntraVENous, at 100 mL/hr, Administer over 1 Hours, PRN, Other, Magnesium IV Replacement, Starting on Mon09/28/21 at 0944, Mg Level Mg Replacement Action 1.4 to 1.6 1 gram IVPB x 2 doses (2 grams total) 1.0 to 1.3 1 gram IVPB x 4 doses (4 grams total) Below 1.0 CALL PHYSICIAN and 1 gram IVPB x 4 doses (4 grams total) Infuse at 1 gram/hr. Repeat Mg level next AM. Not for use in patients with CrCl less than 30 mL/min. ondansetron (ZOFRAN) injection 4 mg 4 mg, IntraVENous, EVERY 6 HOURS PRN, Nausea, Vomiting, Starting on Mon09/28/21 at 1014 polyethylene glycol (GLYCOLAX) packet 17 g 17 g, Oral, DAILY PRN, Constipation, Starting on Mon09/28/21 at 0944, First line therapy for constipation potassium bicarb-citric acid (EFFER-K) effervescent tablet 40 mEq(Linked Group 1) 40 mEq, Oral, PRN, Per Potassium Replacement Protocol, Starting on Mon09/30/21 at 1607, Administer as alternative if patient unable to tolerate oral tablet. K Lab Replacement Action 3.1 to 3.5 40 mEq ORAL x 1 Under 3.1 Refer to IV replacement protocol Recheck K level in AM. Protocol not for use in patients with CrCl less than 30 mL/min. Do not chew or crush. Dissolve flavored tablets completely in 3 to 4 ounces of cold water; unflavored tablets may be dissolved in 3 to 4 ounces of cold juice. Patient to sip slowly over a 5 to 10 minute period. May further dilute if GI adverse effects occur. 0113 (See Alternative - Provider: Danica Platt RN)1743 (See Alternative - Provider: Mary Wong) potassium chloride (KLOR-CON M) extended release tablet 40 mEq(Linked Group 1) 40 mEq, Oral, PRN, Per Potassium Replacement Protocol, Starting on Joaquina 09/30/21 at 1607, May give oral solution if patient unable to tolerate tablet K Lab Replacement Action 3.1-3.5 40 Meq ORAL x 1 2.7-3.0 Refer to IV replacement protocol <2.7 Refer to IV replacement protocol Recheck K level in AM Protocol not for use in Patients with CrCl<30ml/min 0113 (Given - Provider: Danica Platt RN - Comment: K 3.5)1743 (Given - Provider: Mary Wong) potassium chloride 10 mEq/100 mL IVPB (Peripheral Line)(Linked Group 1) 10 mEq, IntraVENous, at 100 mL/hr, PRN, Per Potassium Replacement Protocol, Starting on Joaquina 09/30/21 at 1607, K Lab Replacement Action 2.7-3.0 10 Meq IVPB x 6 doses (60 Meq Total) <2.7 CALL PHYSICIAN and 10 Meq IVPB x 6 doses (60 Meq Total) Infuse at 10meq/hr Repeat Potassium lab 1 hour after final administration. Protocol not for use in Patients with CrCl<30ml/min 0113 (See Alternative - Provider: Danica Platt RN)1743 (See Alternative - Provider: Mary Wong) sodium phosphate 10 mmol in dextrose 5 % 250 mL IVPB(Linked Group 2) 10 mmol, IntraVENous, at 62.5 mL/hr, Administer over 240 Minutes, PRN, Phosphorus IV Replacement, Starting on Mon09/28/21 at 0944, Phos level Phosphorus Replacement Action 2.3 to 2.7 mg/dL 10 mmol IVPB over 4 hours 1.5 to 2.2 mg/dL 15 mmol IVPB over 4 hours Below 1.5 mg/dL 20 mmol IVPB over 6 hours sodium phosphate 15 mmol in dextrose 5 % 250 mL IVPB(Linked Group 2) 15 mmol, IntraVENous, at 62.5 mL/hr, Administer over 240 Minutes, PRN, Phosphorus IV Replacement, Starting on Mon09/28/21 at 0944, Phos level Phosphorus Replacement Action 2.3 to 2.7 mg/dL 10 mmol IVPB over 4 hours 1.5 to 2.2 mg/dL 15 mmol IVPB over 4 hours Below 1.5 mg/dL 20 mmol IVPB over 6 hours sodium phosphate 20 mmol in dextrose 5 % 500 mL IVPB(Linked Group 2) 20 mmol, IntraVENous, at 83.3 mL/hr, Administer over 360 Minutes, PRN, Phosphorus IV Replacement, Starting on Mon09/28/21 at 0944, Phos level Phosphorus Replacement Action 2.3 to 2.7 mg/dL 10 mmol IVPB over 4 hours 1.5 to 2.2 mg/dL 15 mmol IVPB over 4 hours Below 1.5 mg/dL 20 mmol IVPB over 6 hours Linked Groups Order Group 1: potassium chloride (KLOR-CON M) extended release tablet 40 mEqJump to med 40 mEq, Oral, PRN, Per Potassium Replacement Protocol, Starting on Mon09/30/21 at 1607
May give oral solution if patient unable to tolerate tablet K Lab Replacement Action 3.1-3.5 40 Meq ORAL x 1 &n bsp;& nbsp; 2.7-3.0 Refer to IV replacement protocol &n bsp;& nbsp; <2.7 Refer to IV replacement protocol &n bsp;& nbsp; Recheck K level in AM &nbsp ; Protocol not for use in Patients with CrCl<30ml/min
Or potassium bicarb-citric acid (EFFER-K) effervescent tablet 40 mEqJump to med 40 mEq, Oral, PRN, Per Potassium Replacement Protocol, Starting on Joaquina 09/30/21 at 1607
Administer as alternative if patient unable to tolerate oral tablet. K Lab R eplac ement Action 3.1 to 3.5 40 mEq ORAL x 1 Under 3.1 Refer to IV replacement protocol Recheck K level in AM. Protocol not for use in patients with CrCl less than 30 mL/min. Do not chew or crush. Dissolve flavored tablets completely in 3 to 4 ounces of cold water; unflavored tablets may be dissolved in 3 to 4 ounces of cold juice. Patient to sip slowly over a 5 to 10 minute period. May further dilute if GI adverse effects occur.
Or potassium chloride 10 mEq/100 mL IVPB (Peripheral Line)Jump to med 10 mEq, IntraVENous, at 100 mL/hr, PRN, Per Potassium Replacement Protocol, Starting on Joaquina 09/30/21 at 1607
K Lab Replacement Action 2.7-3.0 10 Meq IVPB x 6 doses &n bsp;& nbsp; (60 Meq Total) <2.7 CALL PHYSICIAN and &n bsp;& nbsp; 10 Meq IVPB x 6 doses &nbs p;&nb sp; (60 Meq Total) Infuse at 10meq/hr Repeat Potassium lab 1 hour after final administration. Protocol not for use in Patients with CrCl<30ml/min
Group 2: sodium phosphate 10 mmol in dextrose 5 % 250 mL IVPBJump to med 10 mmol, IntraVENous, at 62.5 mL/hr, Administer over 240 Minutes, PRN, Phosphorus IV Replacement, Starting on Mon09/28/21 at 0944
Phos level Phosphorus Replacement Action 2.3 to 2.7 mg/dL 10 mmol IVPB over 4 hours 1.5 to 2.2 mg/dL 15 mmol IVPB over 4 hours Below 1.5 mg/dL 20 mmol IVPB over 6 hours
Or sodium phosphate 15 mmol in dextrose 5 % 250 mL IVPBJump to med 15 mmol, IntraVENous, at 62.5 mL/hr, Administer over 240 Minutes, PRN, Phosphorus IV Replacement, Starting on Mon09/28/21 at 0944
Phos level Phosphorus Replacement Action 2.3 to 2.7 mg/dL 10 mmol IVPB over 4 hours 1.5 to 2.2 mg/dL 15 mmol IVPB over 4 hours Below 1.5 mg/dL 20 mmol IVPB over 6 hours
Or sodium phosphate 20 mmol in dextrose 5 % 500 mL IVPBJump to med 20 mmol, IntraVENous, at 83.3 mL/hr, Administer over 360 Minutes, PRN, Phosphorus IV Replacement, Starting on Mon09/28/21 at 0944
Phos level Phosphorus Replacement Action 2.3 to 2.7 mg/dL 10 mmol IVPB over 4 hours 1.5 to 2.2 mg/dL 15 mmol IVPB over 4 hours Below 1.5 mg/dL 20 mmol IVPB over 6 hours
Care Teams (unrecognized sec tion and content) Biblical Studies Professor Relationship Specialty Start Date End Date Diaz Betts MD [address] [place] [address] PCP - General Family Medicine 09/28/21 Biblical Studies Professor Relationship Specialty Start Date End Date Diaz Betts MD [address] [place] [address] PCP - General Family Medicine 09/24/21 FOR RECORDS PERTAINING TO PATIENTS WHO ARE OR HAVE BEEN ENROLLED IN A CHEMICAL DEPENDENCY/SUBSTANCEABUSE PROGRAM, SOME INFORMATION MAY BE OMITTED. This clinical summary was aggregated from multiple sources. Caution should be exercised in using it in the provision of clinical care. This summary normalizes information from multiple sources, and as a consequence, information in this document may materially change the coding, format and clinical context of patient data. In addition, data may be omitted in some cases. CLINICAL DECISIONS SHOULD BE BASED ON THE PRIMARY CLINICAL RECORDS. [facility] [employer] [facility]. provides no warranty or guarantee of the accuracy or completeness of information in this document.
[2023-10-02 10:22] LABS: Basophils Percent Auto 0.2 % (0.2-2.0); Eosinophils Absolute Auto 0.2 10^3/uL (0.0-0.7); Eosinophils Percent Auto 1.8 % (0.9-7.0); Hematocrit 45.7 % (36.0-48.0); Hemoglobin 14.7 g/dL (12.0-16.0); Immature Granulocytes Abs Auto 0.01 10^3/uL (0.00-0.03); Immature Granulocytes Pct Auto 0.1 % (0.0-0.5); Lymphocytes Absolute Auto 2.6 10^3/uL (1.2-3.8); Lymphocytes Percent Auto 32.1 % (20.5-60.0); Mean Corpuscular HGB Conc 32.2 g/dL (29.9-35.2); Mean Corpuscular Hemoglobin 28.2 pg (26.7-34.0); Mean Corpuscular Volume 87.7 fL (81.0-99.0); Mean Platelet Volume 8.6 fL (9.5-13.5); Monocytes Absolute Auto 0.4 10^3/uL (0.3-0.8); Monocytes Percent Auto 5.4 % (1.7-12.0); Neutrophils Absolute Auto 4.9 10^3/uL (1.4-6.5); Neutrophils Percent Auto 60.4 % (43.0-75.0); Platelet Count 217 10^3/uL (150-450); Red Blood Count 5.21 10^6/uL (4.20-5.40); Red Cell Distribution Width 12.4 % (11.0-15.0); White Blood Count 8.2 10^3/uL (4.0-11.0)
[2023-10-02 11:16] LABS: Microalbumin Urine Random 20.2 mg/dL (<=30.0)
[2023-10-02 11:35] LABS: Estimated Average Glucose 289 mg/dL; Glycohemoglobin A1C 11.7 % (4.5-6.2)
[2023-10-02 12:19] LABS: Alanine Aminotransferase 28 U/L (14-59); Albumin Globulin Ratio 0.8; Albumin Level 3.4 g/dL (3.4-5.0); Alkaline Phosphatase 94 U/L (46-116); Anion Gap 10.7; Aspartate Amino Transferase 11 U/L (15-37); BUN Creatinine Ratio 22.9; Bilirubin Direct 0.1 mg/dL (0.0-0.2); Bilirubin Total 0.4 mg/dL (0.2-1.0); Calcium 9.4 mg/dL (8.5-10.1); Carbon Dioxide 30.6 mmol/L (21.0-32.0); Chloride 97 mmol/L (98-107); Cholesterol 250 mg/dL (<=200); Estimated GFR (African America >60 (>=60); Estimated GFR (Non-African Ame >60 (>=60); Globulin 4.5 g/dL; Glucose 314 mg/dL (74-106); HDL Cholesterol 62 mg/dL (40-60); Potassium 4.3 mmol/L (3.5-5.1); Sodium 134 mmol/L (136-145); Thyroid Stimulating Hormone 2.026 uIU/mL (0.358-3.740); Total Protein 7.9 g/dL (6.4-8.2); Triglycerides 288 mg/dL (<=150); VLDL CHOLESTEROL 57.6 mg/dL
== END 2023-10-02 09:47 | disposition home or self-care (01) ==
LOC: LAB 09:46
PROVIDERS: PCP Family Medicine; Visit Provider Family Medicine
DX: E11.29 Type 2 diabetes mellitus with other diabetic kidney complication (principal); Z79.899 Other long term (current) drug therapy; E55.9 Vitamin D deficiency, unspecified; E78.5 Hyperlipidemia, unspecified
CPT/HCPCS: 36415; 80048; 80061; 80076; 82043; 82306; 83036; 84443; 85025

== ENCOUNTER 2023-10-17 12:50 | Emergency (ER) | payer MEDICAID, SELFPAY ==
[2023-10-17 12:55] VITALS: BP 145/101; PULSE 108; RESP 20; TEMP 36.5; BMI 41.4
[2023-10-17 13:08] LABS: Glucometer 82 mg/dL (74-106)
[2023-10-17 14:06] LABS: Basophils Percent Auto 0.4 % (0.2-2.0); Eosinophils Absolute Auto 0.1 10^3/uL (0.0-0.7); Eosinophils Percent Auto 0.8 % (0.9-7.0); Hemoglobin 13.9 g/dL (12.0-16.0); Immature Granulocytes Abs Auto 0.01 10^3/uL (0.00-0.03); Immature Granulocytes Pct Auto 0.1 % (0.0-0.5); Lymphocytes Absolute Auto 2.8 10^3/uL (1.2-3.8); Lymphocytes Percent Auto 36.7 % (20.5-60.0); Mean Corpuscular HGB Conc 31.6 g/dL (29.9-35.2); Mean Corpuscular Hemoglobin 28.6 pg (26.7-34.0); Mean Corpuscular Volume 90.5 fL (81.0-99.0); Mean Platelet Volume 8.8 fL (9.5-13.5); Monocytes Absolute Auto 0.5 10^3/uL (0.3-0.8); Monocytes Percent Auto 6.4 % (1.7-12.0); Neutrophils Absolute Auto 4.3 10^3/uL (1.4-6.5); Neutrophils Percent Auto 55.6 % (43.0-75.0); Platelet Count 220 10^3/uL (150-450); Red Blood Count 4.86 10^6/uL (4.20-5.40); Red Cell Distribution Width 12.7 % (11.0-15.0); White Blood Count 7.7 10^3/uL (4.0-11.0)
[2023-10-17 14:14] LABS: Anion Gap 11.8; BUN Creatinine Ratio 26.2; Calcium 8.6 mg/dL (8.5-10.1); Carbon Dioxide 27.4 mmol/L (21.0-32.0); Chloride 102 mmol/L (98-107); Estimated GFR (African America >60 (>=60); Estimated GFR (Non-African Ame >60 (>=60); Glucose 151 mg/dL (74-106); Potassium 4.2 mmol/L (3.5-5.1); Sodium 137 mmol/L (136-145)
--- NOTE | 2023-10-17 14:30 | ED_ITS ---
HPI - General Adult General Chief complaint: Recheck/Abnormal Lab/Rx Stated complaint: BLOOD SUGAR RECHECK Time Seen by Provider: 10/17/23 13:30 Source: family Mode of arrival: walk-in Limitations: no limitations History of Present Illness HPI narrative: Patient is a 43-year-old female with a history of developmental delay who presents to the emergency department from a caregiver at her residence for low blood sugar. She has a history of uncontrolled diabetes. She is an insulin- dependent diabetic on multiple medications for blood Sugar control. She states the last several days her blood sugar has been running low mostly at nighttime. She has no other focal medical complaints other than feeling chills and clammy when her blood sugar runs low. She has had no fevers, vomiting, upper respiratory symptoms, abdominal pain. Related Data Home Medications Medication Instructions Recorded Confirmed acyclovir 400 mg tablet 400 mg PO Q8H 03/16/23 03/31/23 albuterol sulfate 90 mcg/actuation 2 inh inhalation Q4H PRN shortness 03/16/23 03/31/23 aerosol inhaler (ProAir HFA) of breath or wheezing atorvastatin 40 mg tablet 40 mg PO DAILY 03/16/23 03/31/23 bupropion HCl 300 mg 24 hr tablet, 300 mg PO DAILY 03/16/23 03/31/23 extended release cholecalciferol (vitamin D3) 50 50 mcg PO DAILY 03/16/23 03/31/23 mcg (2,000 unit) capsule dicyclomine 20 mg tablet 20 mg PO QID 03/16/23 03/31/23 dulaglutide 3 mg/0.5 mL 3 mg subcut QWEEK 03/16/23 03/31/23 subcutaneous pen injector (Trulicity) furosemide 40 mg tablet 40 mg PO DAILY 03/16/23 03/31/23 hyoscyamine sulfate 0.125 mg 0.125 mg PO Q6H PRN dyspepsia 03/16/23 03/31/23 tablet (Levsin) insulin aspart U-100 100 unit/mL 1 sliding scale dose subcut 03/16/23 03/31/23 subcutaneous cartridge USEASDIRECTD insulin glargine 100 unit/mL (3 15 unit subcut DAILY 03/16/23 03/31/23 mL) subcutaneous pen (Lantus Solostar U-100 Insulin) lamotrigine 200 mg tablet 200 mg PO DAILY 03/16/23 03/31/23 (Lamictal) lorazepam 1 mg tablet (Ativan) 1 mg PO Q8H PRN anxiety 03/16/23 03/31/23 oxybutynin chloride 15 mg 15 mg PO DAILY 03/16/23 03/31/23 tablet,extended release 24 hr pantoprazole 40 mg tablet,delayed 40 mg PO DAILY 03/16/23 03/31/23 release (Protonix) pioglitazone 45 mg tablet 45 mg PO DAILY 03/16/23 03/31/23 potassium chloride 20 mEq 20 meq PO DAILY 03/16/23 03/31/23 tablet,extended release prazosin 2 mg capsule (Minipress) 2 mg PO DAILY 03/16/23 03/31/23 sertraline 100 mg tablet (Zoloft) 100 mg PO DAILY 03/16/23 03/31/23 sumatriptan succinate 25 mg tablet See Rx Instructions PO .COMPLEX 03/16/23 03/31/23 Previous Rx's Medication Instructions Recorded hydrocodone 5 mg-acetaminophen 325 1 tab PO Q4H PRN pain 4 days #16 03/31/23 mg tablet tabs ibuprofen 800 mg tablet 800 mg PO Q8H PRN pain 14 days #40 03/31/23 tabs Allergies Allergy/AdvReac Type Severity Reaction Status Date / Time sulfamethoxazole Allergy Hives Verified 03/16/23 10:20 [From Bactrim] trimethoprim [From Bactrim] Allergy Hives Verified 03/16/23 10:20 Review of Systems ROS Constitutional Reports: chills; Denies: fever Ears, nose, mouth, and throat Denies: throat pain Cardiovascular Denies: chest pain Respiratory Denies: shortness of breath or cough Gastrointestinal Denies: nausea or vomiting Integumentary/Breast Denies: rash Neurological Reports: headache Hematologic/Lymphatic Denies: easy bruising or easy bleeding PFSH [facility] Medical History (Updated 10/17/23 @ 14:33 by ROSAURA Willson) Extremity edema ?R60.0 - Localized edema (ICD-10) Depression ?F32.A - Depression, unspecified (ICD-10) Anxiety ?F41.9 - Anxiety disorder, unspecified (ICD-10) COVID-19 ?U07.1 - COVID-19 (ICD-10) Pneumonia ?J18.9 - Pneumonia, unspecified organism (ICD-10) Migraine ?G43.909 - Migraine, unspecified, not intractable, without status migrainosus (ICD-10) Seizures ?R56.9 - Unspecified convulsions (ICD-10) Heartburn ?R12 - Heartburn (ICD-10) Diabetes ?E11.9 - Type 2 diabetes mellitus without complications (ICD-10) Pelvic pain ?R10.2 - Pelvic and perineal pain (ICD-10) Pain of ovary ?N94.89 - Other specified conditions associated with female genital organs and menstrual cycle (ICD-10) Surgical History (Updated 03/31/23 @ 10:03 by Kylie Christianson) History of surgical removal of lesion ?Z98.890 - Other specified postprocedural states (ICD-10) ?Z87.2 - Personal history of diseases of the skin and subcutaneous tissue (ICD-10) History of colonoscopy ?Z98.890 - Other specified postprocedural states (ICD-10) History of tubal ligation ?Z98.51 - Tubal ligation status (ICD-10) History of thyroidectomy ?E89.0 - Postprocedural hypothyroidism (ICD-10) History of cholecystectomy ?Z90.49 - Acquired absence of other specified parts of digestive tract (ICD- 10) H/O adenoidectomy ?Z90.89 - Acquired absence of other organs (ICD-10) Family History (Updated 03/16/23 @ 10:28 by Mishel Sherman NP) Other Family history of Alzheimer's disease Family history of diabetes mellitus Family history of hypertension Family history of leukemia Family history of myocardial infarction Family history of stroke Social History Within the past year, how often did you have a drink containing alcohol: never Score interpretation: A score less than 3 is consistent with normal alcohol consumption. Smoking status: Never smoker Non-prescribed substance use: denies use Highest level of school completed/degree received: high school graduate Exam Narrative Exam Narrative: Gen.: Awake, alert, in no distress Head: Normocephalic, atraumatic ENT: Moist mucous membranes Respiratory: No respiratory distress, lungs clear bilaterally Cardio: Regular rate and rhythm Extremities: Moves extremities equally Psych: Normal mood and affect Neuro: No focal neuro deficit Skin: Warm, dry, intact Constitutional Vital Signs, click to edit/add: Last Vital Signs Temp 97.7 F 10/17/23 12:55 Pulse 108 H 10/17/23 12:55 Resp 20 10/17/23 12:55 BP 145/101 H 10/17/23 12:55 O2 Del Method Room Air 10/17/23 12:55 Course Vital Signs Vital signs: Vital Signs Temperature 97.7 F 10/17/23 12:55 Pulse Rate 108 H 10/17/23 12:55 Respiratory Rate 10/17/23 12:55 Blood Pressure 145/101 H 10/17/23 12:55 Oxygen Delivery Method Room Air 10/17/23 12:55 Temperature 97.7 F 10/17/23 12:55 Pulse Rate 108 H 10/17/23 12:55 Respiratory Rate 10/17/23 12:55 Blood Pressure 145/101 H 10/17/23 12:55 Oxygen Delivery Method Room Air 10/17/23 12:55 Medical Decision Making MDM Narrative Medical decision making narrative: I discussed the case with Dr. Dalton, We will avoid an insulin change at this time as the patient's A1c is very high and she has a history of medication noncompliance. She was instructed to eat a snack before bedtime to prevent hypoglycemia. She is otherwise hemodynamically stable at this time with blood sugar 150 on reevaluation by attending physician at discharge. Medical Records Medical records reviewed: Yes I reviewed the patient's medical records Lab Data Lab results reviewed: Yes I reviewed the patient's lab results Labs: Lab Results 10/17/23 10/17/23 10/17/23 Range/Units 12:58 13:52 14:00 WBC 7.7 (4.0-11.0) 10^3/uL RBC 4.86 (4.20-5.40) 10^6/uL Hgb 13.9 (12.0-16.0) g/dL Hct 44.0 (36.0-48.0) % MCV 90.5 (81.0-99.0) fL MCH 28.6 (26.7-34.0) pg MCHC 31.6 (29.9-35.2) g/dL RDW 12.7 (11.0-15.0) % Plt Count 220 (150-450) 10^3/uL MPV 8.8 L (9.5-13.5) fL Neut % (Auto) 55.6 (43.0-75.0) % Lymph % (Auto) 36.7 (20.5-60.0) % Jenkins % (Auto) 6.4 (1.7-12.0) % Eos % (Auto) 0.8 L (0.9-7.0) % Baso % (Auto) 0.4 (0.2-2.0) % Neut # (Auto) 4.3 (1.4-6.5) 10^3/uL Lymph # (Auto) 2.8 (1.2-3.8) 10^3/uL Jenkins # (Auto) 0.5 (0.3-0.8) 10^3/uL Eos # (Auto) 0.1 (0.0-0.7) 10^3/uL Baso # (Auto) 0.0 (0.0-0.1) 10^3/uL Abs Immat Gran (auto) 0.01 (0.00-0.03) 10^3/uL Imm/Tot Granulo (auto) 0.1 (0.0-0.5) % Sodium 137 (136-145) mmol/L Potassium 4.2 (3.5-5.1) mmol/L Chloride 102 (98-107) mmol/L Carbon Dioxide 27.4 (21.0-32.0) mmol/L Anion Gap 11.8 BUN 22.0 H (7.0-18.0) mg/dL Creatinine 0.84 (0.55-1.02) mg/dL Est GFR ( Amer) >60 (>=60) Est GFR (Non-Af Amer) >60 (>=60) BUN/Creatinine Ratio 26.2 Glucose 151 H (74-106) mg/dL Calcium 8.6 (8.5-10.1) mg/dL POC Glucose 82 (74-106) mg/dL Discharge Plan Discharge Chief Complaint: Recheck/Abnormal Lab/Rx Clinical Impression: Hypoglycemia Patient Disposition: Home, Self-Care Time of Disposition Decision: 14:33 Condition: Good Prescriptions / Home Meds: No Action Trulicity 3 mg/0.5 mL pen injector 3 mg subcut QWEEK insulin aspart U-100 100 unit/mL cartridge 1 sliding scale dose subcut USEASDIRECTD bupropion HCl 300 mg tablet extended release 24 hr 300 mg PO DAILY acyclovir 400 mg tablet 400 mg PO Q8H oxybutynin chloride 15 mg tablet extended release 24hr 15 mg PO DAILY prazosin [Minipress] 2 mg capsule 2 mg PO DAILY pioglitazone 45 mg tablet 45 mg PO DAILY sertraline [Zoloft] 100 mg tablet 100 mg PO DAILY pantoprazole [Protonix] 40 mg tablet,delayed release (DR/EC) 40 mg PO DAILY lamotrigine [Lamictal] 200 mg tablet 200 mg PO DAILY atorvastatin 40 mg tablet 40 mg PO DAILY cholecalciferol (vitamin D3) 50 mcg (2,000 unit) capsule 50 mcg PO DAILY insulin glargine [Lantus Solostar U-100 Insulin] 100 unit/mL (3 mL) insulin pen 15 unit subcut DAILY lorazepam [Ativan] 1 mg tablet 1 mg PO Q8H PRN (Reason: anxiety) furosemide 40 mg tablet 40 mg PO DAILY dicyclomine 20 mg tablet 20 mg PO QID hyoscyamine sulfate [Levsin] 0.125 mg tablet 0.125 mg PO Q6H PRN (Reason: dyspepsia) sumatriptan succinate 25 mg tablet See Rx Instructions .ROUTE .COMPLEX Rx Instructions: take 1 tab at onset of headache; if no relief may repeat 1 tab after at least 2 hrs; max = 4 tabs/24 hr albuterol sulfate [ProAir HFA] 90 mcg/actuation HFA aerosol inhaler 2 inh inhalation Q4H PRN (Reason: shortness of breath or wheezing) potassium chloride 20 mEq tablet extended release 20 meq PO DAILY ibuprofen 800 mg tablet 800 mg PO Q8H PRN (Reason: pain) 14 Days Qty: 40 0RF hydrocodone-acetaminophen 5-325 mg tablet 1 tab PO Q4H PRN (Reason: pain) 4 Days Qty: 16 0RF Instructions: What to Do if Your Blood Sugar is Low (ED) Stand Alone Forms: Portal Instructions Referrals: Diaz Dalton MD [Primary Care Provider] - 1 week
== END 2023-10-17 14:40 | disposition home or self-care (01) ==
PROVIDERS: Physician Assistant; Emergency Provider Emergency Medicine; PCP Family Medicine
DX: E11.649 Type 2 diabetes mellitus with hypoglycemia without coma (principal); Z79.4 Long term (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 insulin; Z79.899 Other long term (current) drug therapy; F32.A Depression, unspecified; F41.9 Anxiety disorder, unspecified; Z86.16 Personal history of COVID-19; Z87.01 Personal history of pneumonia (recurrent); Z98.890 Other specified postprocedural states; Z98.51 Tubal ligation status; E89.0 Postprocedural hypothyroidism; Z90.49 Acquired absence of other specified parts of digestive tract; Z90.89 Acquired absence of other organs
CPT/HCPCS: 36415; 80048; 85025; 99283

== ENCOUNTER 2024-04-01 11:12 | Outpatient (OUT) | payer MEDICAID, SELFPAY ==
--- NOTE | 2024-04-01 11:14 | CT_ITS ---
[address] [address] Patient Name: YAMILA LOZADA MRN: [id number] date: 1980 Sex: F Assigned Patient Location: CT Current Patient Location: Accession/Order Number: [id number] Exam Date: 04/01/2024 12:24 Report Date: 04/02/2024 06:38 At the request of: THERESA GUERRA Procedure: CT abdomen pelvis wo con EXAMINATION: CT abdomen pelvis wo con HISTORY: Pain Of Ovary N94.89, Female Pelvic Pain R10.2 ; right side pelvic pain radiating into the vaginal region for 3 months COMPARISON: No relevant comparison available. TECHNIQUE: Axial, Coronal, and Sagittal images were obtained without and/or with IV contrast as indicated by examination type. Dose reduction techniques were achieved by using automated exposure control and/or adjustment of mA and/or kV according to patient size and/or use of iterative reconstruction technique. FINDINGS: LUNG BASES: No visible pulmonary or pleural disease. LIVER: No enlargement, atrophy, suspicious density, or significant focal lesion. BILIARY: Cholecystectomy. PANCREAS: No lesion, fluid collection, or abnormal duct dilatation. SPLEEN: No enlargement or focal lesion. ADRENALS: No mass or enlargement. KIDNEYS: No mass, obstruction, or calcification. BOWEL/MESENTERY: No visible mass, obstruction, or bowel wall thickening. AORTA/VASCULAR: No aneurysm or dissection. RETROPERITONEUM: No mass or adenopathy. LYMPH NODES: No adenopathy. URINARY BLADDER: No visible focal wall thickening, lesion, or calculus. PELVIC ORGANS: No visible mass. Pelvic organs appropriate for patient age. ABDOMINAL WALL: Small fat filled umbilical hernia without strangulation. BONES: No bony lesion or fracture. OTHER: Negative. CT/CT abdomen pelvis wo con IMPRESSION: 1. No abnormal or suspicious findings to account for patient's symptoms. 2. Small fat filled umbilical hernia without strangulation. Electronically authenticated by: HARVINDER DELEON Date: 04/02/2024 06:38
== END 2024-04-01 11:13 | disposition home or self-care (01) ==
LOC: CT 11:12
PROVIDERS: PCP Family Medicine; Visit Provider Physician Assistant
DX: N94.89 Other specified conditions associated with female genital organs and menstrual cycle (principal); R10.2 Pelvic and perineal pain; K42.9 Umbilical hernia without obstruction or gangrene
CPT/HCPCS: 74176

== ENCOUNTER 2024-04-02 11:49 | Outpatient (OUT) | payer MEDICAID, SELFPAY ==
--- NOTE | 2024-04-02 11:53 | US_ITS ---
The [address] [address] Patient Name: YAMILA LOZADA MRN: [id number] date: 1980 Sex: F Assigned Patient Location: [facility] Current Patient Location: Accession/Order Number: [id number] Exam Date: 04/02/2024 11:53 Report Date: 04/03/2024 08:29 At the request of: THERESA GUERRA Procedure: US pelvis w/ transvaginal EXAMINATION: US pelvis w/ transvaginal HISTORY: PELVIC PAIN COMPARISON: No relevant comparison available. FINDINGS: Limited exam due to patient body habitus. Transabdominal and transvaginal images The uterus is normal in size, contour and echotexture measuring 6.1 x 2.9 x 3.1 cm. The endometrium measures 5.4 mm thick. The ovaries are not visualized. No ascites US/US pelvis w/ transvaginal IMPRESSION: Normal uterus Nonvisualization of the ovaries Electronically authenticated by: KRYSTYNA SORIANO Date: 04/03/2024 08:29
== END 2024-04-02 11:50 | disposition home or self-care (01) ==
LOC: NOMS 11:50
PROVIDERS: PCP Family Medicine; Visit Provider Physician Assistant
DX: R10.2 Pelvic and perineal pain (principal)
CPT/HCPCS: 76830; 76856

== ENCOUNTER 2024-06-28 10:51 | Outpatient (OUT) | payer MEDICAID, SELFPAY ==
--- NOTE | 2024-06-28 10:56 | MM_ITS ---
Patient Name: YAMILA LOZADA MR#: [id number] : 1980 Exam Date: 06/28/2024 Ordering Doctor: DR Feliz Benz . RADIOLOGY REPORT PROCEDURE: MM TOMOSYNTHESIS SCREENING BI COMPARISON: MM TOMOSYNTHESIS SCREENING BI, 06/26/2023. MG MAMM SCREEN 3D DINAH CAD, 06/22/2022. MG MAMM SCREEN 3D DINAH CAD, 06/21/2021. MG MAMM DINAH DIAG W CAD, 02/02/2016. INDICATIONS: Screening Calculator Name NCI Breast Cancer Risk Assessment Tool 5 Year Breast Cancer Risk 0.80% Lifetime Breast Cancer Risk 9.80% Personal Breast Cancer No Personal Ovarian Cancer No Treatments None Family Cancers None LOCATION: [facility] BREAST COMPOSITION: There are scattered areas of fibroglandular density. FINDINGS: DIAGNOSTIC CATEGORY 1--NEGATIVE. RIGHT BREAST: No significant suspicious finding. No significant change has occurred. LEFT BREAST: No significant suspicious finding. No significant change has occurred. RECOMMENDATIONS: ROUTINE MAMMOGRAM AND CLINICAL EVALUATION IN 12 MONTHS. PLEASE NOTE: A NORMAL MAMMOGRAM DOES NOT EXCLUDE THE POSSIBILITY OF BREAST CANCER. A CLINICALLY SUSPICIOUS PALPABLE LUMP SHOULD BE BIOPSIED. Dictated by: Kamron Gunn M.D. on 06/30/2024 at 19:48 Approved by: Kamron Gunn M.D. on 06/30/2024 at 19:52
== END 2024-06-28 10:52 | disposition home or self-care (01) ==
LOC: MAMMO 10:51
PROVIDERS: PCP Family Medicine; Visit Provider Obstetrics & Gynecology
DX: Z12.31 Encounter for screening mammogram for malignant neoplasm of breast (principal)
CPT/HCPCS: 77063; 77067

== ENCOUNTER 2024-08-06 20:34 | Outpatient (REF) | payer MEDICAID, SELFPAY ==
--- OUTSIDE RECORDS SUMMARY | 2024-08-06 20:40 | XMS_ITS | CCD ---
Author Organization [facility] Care Team Providers Care Scientific Investigator Name Role Phone DIAZ BETTS Attending Unavailabl e DEREKERER, DIAZ THOMPSON Primary Care Unavailchad Betts MD, Diaz Thompson Primary Care Provider YAAKOV BERRIOS Referring Unavailable DEREKEREShelby, DIAZ THOMPSON Primary Care Unavailabl e SERNAGUIDO Bergman Attending Unavailable BRYAN, LEONEL Admitting Unavailable BRYAN, LEONEL Consulting Unavailable AOUAGOVIND Howell Consulting Unavailable PRICE JUSTIN Consulting Unavailable JACKSON, ROBSON Attending Unavailable JACKSON, ROBSON Admitting Unavailable JACKSON, ROBSON Attending Unavailable JACKSON, ROBSON Attending Unavailable TAMLYN ., NICOLÁS Admitting Unavailable OSCAR II, ZACK Consulting Unavailable TAMLYN ., NICOLÁS Attending Unavailable NADERER, DR DIAZ Phipps Primary Care Unavailable TAMLYN ., NICOLÁS Consulting Unavailable SHAILA SALAS Consulting Unavailable DEMAR ., DR VALENCIA Admitting Unavailable DEMAR ., DR VALENCIA Attending Unavailable DEMAR ., DR VALENCIA Consulting Unavailable NADERER, DR DIAZ Phipps Primary Care Unavailable ZIEBER, DR HARVINDER Cespedes Consulting Unavailable NADERER, DR DIAZ Phipps Admitting Unavailable NADERER, DR DIAZ Phipps Attending Unavailable NADERER, DR DIAZ Phipps Consulting Unavailable NADERER, DR DIAZ Phipps Primary Care Unavailable DEMAR ., DR VALENCIA Consulting Unavailable DEMAR ., DR VALENCIA Admitting Unavailable DEMAR ., DR VALENCIA Attending Unavailable NADERER, DR DIAZ Phipps Primary Care Unavailable ZIEBER, DR HARVINDER Cespedes Consulting Unavailable DEMAR ., DR VALENCIA Admitting Unavailable DEMAR ., DR VALENCIA Attending Unavailable DEMAR ., DR VALENCIA Consulting Unavailable NADERER, DR DIAZ Phipps Primary Care Unavailable DEMAR ., DR VALENCIA Admitting Unavailable DEMAR ., DR VALENCIA Attending Unavailable DEMAR ., DR VALENCIA Consulting Unavailable SHA, DR DIAZ Phipps Primary Care Unavailable TAISHAR, DR DIAZ Phipps Primary Care Unavailable MYRNA, DR CHERI Cespedes Attending Unavailable MYRNA, DR CHERI Cespedes Consulting Unavailable MYRNA, DR CHERI Cespedes Admitting Unavailable Nadereshelby WERNER, Diaz Primary Care Provider [phone] Sha WERNER, Diaz Primary Care Provider [phone] ANGELA WITT Attending Unavailable NADERER, DIAZ Referring Unavailable NADERER, DIAZ Primary Care Unavailable TALJOVANI, LIBBY Attending Unavailable ANGELA WITT Referring Unavailable NADERER, DIAZ Primary Care Unavailable NADERER, DIAZ Referring Unavailable NADERER, DIAZ Primary Care Unavailable TALJOVANI, LIBBY Admitting Unavailable TALEB, LIBBY Attending Unavailable NADERER, DIAZ Primary Care Unavailable RAEANN SAUCEDO Attending Unavailable NADERER, DIAZ Primary Care Unavailable YUSEF, LIBBY Attending Unavailable YUSEF, LIBBY Referring Unavailable NADERER, DIAZ Primary Care Unavailable NADERER, DIAZ Referring Unavailable NADERER, DIAZ Primary Care Unavailable LINDSAY ARRIETA Attending Unavailable NADERER, DIAZ Referring Unavailable NADERER, DIAZ Primary Care Unavailable LINDSAY ARRIETA Attending Unavailable NADEREShelby, DIAZ Referring Unavailable NADERER, DIAZ Primary Care Unavailable LINDSAY ARRIETA Attending Unavailable ALPESH DIANA Referring Unavailable NADERER, DIAZ Primary Care Unavailable NADERER, DIAZ Referring Unavailable NADERER, DIAZ Primary Care Unavailable SMITHA GERMAIN Attending Unavailable LINDSAY ARRIETA Attending Unavailable NADERER, DIAZ Referring Unavailable NADERER, DIAZ Primary Care Unavailable Sha WERNER, Diaz Primary Care Provider [phone] Sha WERNER, Diaz Primary Care Provider ARIANNA MILLER Attending Unavailable FELIZ BENZ Attending Unavailable BARRY SNOWDEN Attending Unavailable NADERER, DIAZ Attending Unavailable BARRY SNOWDEN Attending Unavailable FELIZ BENZ Attending Unavailable FELIZ BENZ Attending Unavailable NADERER, DIAZ Attending Unavailable BARRY SNOWDEN Attending Unavailable ARIANNA MILLER Attending Unavailable NADERER, DIAZ Attending Unavailable NADERER, DIAZ Attending Unavailable THERESA GUERRA Attending Unavailable ARIANNA MILLER Attending Unavailable FELIZ BENZ Attending Unavailable NADERER, DIAZ Attending Unavailable NADERER, DIAZ Attending Unavailable PAUL, ARIANNA Phipps Attending Unavailable SNOWDEN, BARRY Henderson Attending Unavailable SNOWDEN, BARRY Henderson Attending Unavailable Paul, Arianna Cralos Admitting Unavail able Paul, Arianna Carlos Attending Unavail able NADERER, DIAZ A Primary Care Unavailable Paul, Arianna Carlos Attending Unavail able Paul, Arianna Carlos Admitting Unavail able NADERER, DIAZ A Primary Care Unavailable Paul, Arianna Carlos Attending Unavail able NADERER, DIAZ A Primary Care Unavailable Paul, Arianna Carlos Admitting Unavail able Paul, Arianna Carlos Attending Unavail able Paul, Arianna Carlos Admitting Unavail able NADERER, DIAZ A Primary Care Unavailable Paul, Arianna Carlos Attending Unavail able Paul, Arianna Carlos Admitting Unavail able NADERER, DIAZ A Primary Care Unavailable LIBBY FINLEY Referring Unavailable NADERER, DIAZ Primary Care Unavailable NADERER, DIAZ Primary Care Unavailable CHEL MANN Attending Unavailable CECELIA PALOMINO Admitting Unavailable OFELIA AMARO Attending Unavailable OFELIA AMARO Referring Unavailable NADERER, DIAZ Primary Care Unavailable LINDSAY ARRIETA Attending Unavailable LINDSAY ARRIETA Referring Unavailable NADERER, DIAZ Primary Care Unavailable NADERER, DIAZ Referring Unavailable NADERER, DIAZ Primary Care Unavailable OLIVA, LINDSAY M Referring Unavailable NADERER, DIAZ Primary Care Unavailable LINDSAY ARRIETA Attending Unavailable OLIVA, LINDSAY M Referring Unavailable NADERER, DIAZ Primary Care Unavailable OLIVA, LINDSAY M Referring Unavailable NADERER, DIAZ Primary Care Unavailable NADERER, DIAZ Referring Unavailable NADERER, DIAZ Primary Care Unavailable NADERER, DIAZ Primary Care Unavailable REBA LOCKWOOD Attending Unavailable REBA LOCKWOOD Referring Unavailable NADERER, DIAZ Primary Care Unavailable NADERER, DIAZ Referring Unavailable NADERER, DIAZ Primary Care Unavailable KATELYN RECIO Attending Unavailable NADERER, DIAZ Referring Unavailable NADERER, DIAZ Primary Care Unavailable NADERER, DIAZ Primary Care Unavailable WILL CAGLE Attending Unavailable NADERER, DIAZ Referring Unavailable NADERER, DIAZ Primary Care Unavailable FELIZ BENZ Referring Unavailable NADERER, DIAZ Primary Care Unavailable FELIZ BENZ Referring Unavailable NADERER, DIAZ Primary Care Unavailable NADERER, DIAZ Primary Care Unavailable CHEL MANN Attending Unavailable MCMONIGLEJESSE Attending Unavailabl e MCMONIGLEJESSE Referring Unavailabl e NADERER, DIAZ Primary Care Unavailable MCMONIGLEJESSE Attending Unavailabl e MCMONIGLE, JESSE R Referring Unavailabl e NADERER, DIAZ Primary Care Unavailable NADERER, DIAZ Referring Unavailable NADERER, DIAZ Primary Care Unavailable HAIR SEE Attending Unavailable NADSYDNIE, DIAZ Referring Unavailable NADERER, DIAZ Primary Care Unavailable NADERER, DIAZ Primary Care Unavailable SANJIV TAYLOR Attending Unavailable JACK HOLLAND Admitting Unavailable OOSTRAHAIR Referring Unavailable NADERER, DIAZ Primary Care Unavailable Allergies Allergy Classification Reported Allergen(s) Allergy Type Date of Onset Reaction(s) Facility (20 sources) Sulfamethoxazole / Trimethoprim; Translations: [SULFAMETHOXAZOLE-TR IMETHOPRIM] Drug Allergy 2 Itching, Hives, Other (See Comments) (1 source) Amoxicillin / Clavulanate Drug Allergy [facility] (1 source) levoFLOXacin Drug Allergy 0 [facility] (2 sources) Sulfamethoxazole / Trimethoprim; Translations: [Bactrim] Drug Allergy 3 [facility] Medications Current Medications Medication Drug Class(es) Dates Sig (Normalized) Sig (Original) acetaminophen 32 mg/ml oral solution (1 source) Start: 09-29-2021 acetaminophen (TYLENOL) 160 MG/5ML solution 650 mg acetaminophen 325 mg / HYDROcodone bitartrate 5 mg oral tablet (5 sources) Opioid Agonist Start: 06-14-2024 End: 06-17-2024 take 1 tablet by mouth every six hours for pain HYDROcodone-acetami nophen ([place]) 5-325 MG tablet Indications: Post-operative pain Take 1 tablet by mouth every 6 (six) hours if needed for severe pain for up to 3 days 12 tablet 06/14/2024 06/17/2024 Active Start: 08-10-2023 take 1 tablet by kalie four times daily as needed for pain HYDROcodone-acetaminophen ([place]) 5-325 MG tablet Indications: Cavitary lesion of lung Take 1 tablet by mouth 4 (four) times a day as needed for severe pain 28 tablet 0 08/10/2023 Active take 1 tablet by kalie th every six hours as needed for pain HYDROcodone-acetaminophen (NORCO) 5-325 MG per tablet Take 1 tablet by mouth every 6 hours as needed for Pain. 0 Active acyclovir 400 mg oral tablet (20 sources) Herpesvirus Nucleoside Analog DNA Polymerase Inhibitor, Herpes Simplex Virus Nucleoside Analog DNA Polymerase Inhibitor, Herpes Zoster Virus Nucleoside Analog DNA Polymerase Inhibitor acyclovir (Zovirax) 400 MG tablet every 12 (twelve) hours. Active [id number] 200 actuat albuterol 0.09 mg/actuat metered dose inhaler (20 sources) beta2-Adrenergic Agonist Start: take 2 puff(s) by inhalation every six hours as needed for wheezing albuterol (PROVENTIL HFA;VENTOLIN HFA) 90 mcg/actuation inhaler Indications: Hypoxia Inhale 2 puffs every 6 (six) hours as needed for wheezing or shortness of breath. 18 g 12/22/2023 Active Start: 08-10-2023 End: 08-09-2024 take 2 puff(s) by mouth every four hours as needed for wheezing albuterol HFA 90 mcg/act inhaler Indications: SOB (shortness of breath) INHALE 2 PUFFS BY MOUTH EVERY 4 HOURS NEEDED FOR WHEEZING 8.5 g 10 04/16/2024 Active Start: 10-03-2021 End: 11-02-2021 take 2 puff(s) by inhalation every six hours as needed for wheezing albuterol sulfate HFA 108 (90 Base) MCG/ACT inhaler Inhale 2 puffs into the lungs every 6 hours as needed for Wheezing or Shortness of Breath 1 each 0 10/03/2021 11/02/2021 Active Start: 10-01-2021 albuterol (PRO VENTIL) nebulizer solution 2.5 mg atorvastatin 40 mg oral tablet (20 sources) HMG-CoA Reductase Inhibitor Start: 01-30-2024 End: 01-29-2025 take 1 tablet by mouth once daily atorvastatin (Lipitor) 40 MG tablet Indications: Dyslipidemia (CMS/HCC) Take 1 tablet (40 mg) by mouth Daily 30 tablet 11 01/30/2024 01/29/2025 Active black cohosh extract 40 mg oral capsule (17 sources) Start: 11-02-2023 take 1 capsule by mouth once daily Black Cohosh (Black Cohosh Hot Flash Relief) 40 MG capsule Indications: Hot flashes due to menopause Take 1 each by mouth Daily 30 capsule 11 11/02/2023 Active 24 hr buPROPion hydrochloride 300 mg extended release oral tablet (20 sources) Aminoketone Start: 12-18-2023 take 1 tablet by mouth once daily buPROPion XL (Wellbutrin XL) 300 MG 24 hr tablet Indications: Panic disorder without agoraphobia (CMS/HCC) TAKE 1 TABLET BY MOUTH DAILY 30 tablet 10 12/18/2023 Active Start: 07-18-2023 take 1 tablet by kalie th every twenty-four hours in the morning buPROPion XL (Wellbutrin XL) 300 MG 24 hr tablet Take 300 mg by mouth in the morning. 0 07/18/2023 Active cholecalciferol 0.05 mg oral tablet (20 sources) Vitamin D Start: 10-02-2023 take 2 tablets by mouth once in the morning cholecalciferol (Vitamin D-3) 50 MCG (2000 UT) tablet Indications: Vitamin D deficiency Take 2 tablets (100 mcg) by mouth in the morning. 60 tablet 5 10/02/2023 Active take 1 tablet by mouth in the mo rning cholecalciferol, vitamin D3, 400 units tablet Take 1 tablet (400 Units total) by mouth in the morning. Active ciprofloxacin 500 mg oral tablet (2 sources) Quinolone Antimicrobial Start: 07-04-2024 End: 07-11-2024 take 1 tablet by mouth in the morning ciprofloxacin (Cipro) 500 MG tablet Indications: Urinary Tract Infection Take 1 tablet (500 mg) by mouth in the morning and 1 tablet (500 mg) before bedtime. Do all this for 7 days. 14 tablet 07/04/2024 07/11/2024 Active citalopram 20 mg oral tablet (17 sources) Serotonin Reuptake Inhibitor Start: 03-15-2024 take 1 tablet by mouth once daily citalopram (CeleXA) 20 MG tablet Take 20 mg by mouth Daily 03/15/2024 Active clonazePAM 1 mg oral tablet (4 sources) Benzodiazepine take 1 tablet by mouth twice daily as needed clonazePAM (KlonoPIN) 1 mg tablet Take 1 tablet (1 mg total) by mouth 2 (two) times a day as needed for seizures. Active take 1 tablet by kalie th three times daily as needed for anxiety clonazePAM (KLONOPIN) 1 MG tablet Take 1 mg by mouth 3 times daily as needed for Anxiety. 0 Active Continuous Blood Gluc Sensor (FreeStyle Crystal 14 Day Sensor) misc (20 sources) Start: 11-02-2023 Continuous Blo od Gluc Sensor (FreeStyle Crystal 14 Day Sensor) [facility] Indications: Type 2 diabetes mellitus with microalbuminuria, with long-term current use of insulin ([facility]) apply 1 SENSOR to back OF UPPER ARM REMOVE AND REPLACE every 14 d... (REFER TO PRESCRIPTION NOTES). 2 each 11/02/2023 Active Start: 02-09-2023 Continuous Blo od Gluc Sensor (FreeStyle Crystal 14 Day Sensor) [facility] apply 1 SENSOR to back OF UPPER ARM REMOVE AND REPLACE every 14 d... (REFER TO PRESCRIPTION NOTES). 0 02/09/2023 Active cyclobenzaprine hydrochloride 10 mg oral tablet (20 sources) Muscle Relaxant Start: 05-13-2024 take 1 tablet by mouth three times daily as needed for muscle spasms cyclobenzaprine (Flexeril) 10 MG tablet Indications: Spondylosis without myelopathy Take 1 tablet (10 mg) by mouth 3 (three) times a day as needed for muscle spasms 60 tablet 2 05/13/2024 Active dicyclomine hydrochloride 20 mg oral tablet (20 sources) Anticholinergic Start: 11-17-2023 take 1 tablet by mouth four times daily as needed dicyclomine (Bentyl) 20 MG tablet Indications: Irritable bowel syndrome with diarrhea TAKE 1 (ONE) TABLET BY MOUTH FOUR TIMES DAILY, NEEDED 60 tablet 10 11/17/2023 Active Start: 01-18-2023 take 1 tablet by kalie th four times daily as needed dicyclomine (Bentyl) 20 MG tablet Take 20 mg by mouth 4 (four) times a day as needed. 0 01/18/2023 Active take 1 tablet by kalie th every six hours dicyclomine (BENTYL) 20 mg tablet Take 1 tablet (20 mg total) by mouth every 6 (six) hours. Active dulaglutide (Trulicity) 4.5 MG/0.5ML solution pen-injector (3 sources) Start: 10-02-2023 inject 4.5 mg by subcutaneous injection every week dulaglutide (Trulicity) 4.5 MG/0.5ML solution pen-injector Indications: Type 2 diabetes mellitus with microalbuminuria, with long-term current use of insulin ([facility]) Inject 4.5 mg under the skin 1 (one) time per week 4 each 5 10/02/2023 Active fluconazole 150 mg oral tablet (18 sources) Azole Antifungal Start: 03-25-2024 take 1 tablet by mouth once fluconazole (Diflucan) 150 MG tablet Take 150 mg by mouth 1 (one) time 03/25/2024 Active Start: 09-29-2021 End: 09-30-2021 fluconazole (DIFLUCAN) table t 200 mg fcbewaqpeqy-trdwqktzq-fwcjrn er (TRELEGY ELLIPTA) 200-62.5-25 mcg blister with device (7 sources) Start: 03-21-2024 take 1 puff(s) by inhalation in the morning hwirgmhflbo-xcqplxuus-qglqtjpo (TRELEGY ELLIPTA) 200-62.5-25 mcg blister with device Indications: Moderate persistent asthma without complication Inhale 1 puff in the morning. 60 each 03/21/2024 Active furosemide 40 mg oral tablet (20 sources) L o o p D i u r e t i c Start: 08-06-2024 take 1 tablet by mouth once daily furosemide (Lasix) 40 MG tablet Indications: Chronic heart failure with preserved ejection fraction (HFpEF) ([facility]) Take 1 tablet (40 mg) by mouth Daily 30 tablet 5 08/06/2024 Active Start: 08-06-2024 take 1 tablet by kalie th once daily furosemide (Lasix) 40 MG tablet Indications: Chronic heart failure with preserved ejection fraction (HFpEF) (CMS/HCC) Take 1 tablet (40 mg) by mouth Daily 30 tablet 5 08/06/2024 Active Start: 07-18-2024 take 1 tablet by kalie th once daily furosemide (LASIX) 20 mg tablet Indications: Dyspnea on exertion , Pulmonary hypertension ([facility]) Take 1 tablet (20 mg total) by mouth daily. 90 tablet 3 07/18/2024 Active End: 08-06-2024 take 1 tablet by mouth once daily as needed furosemide (Lasix) 40 MG tablet TAKE 1 TABLET BY MOUTH ONCE DAILY NEEDED 08/06/2024 Discontinued (Reorder) glucagon (rdna) 1 mg injection (1 source) Antihypoglycemic Agent Start: 09-29-2021 glucago n (rDNA) injection 1 mg 150 ml glucose 50 mg/ml injection (4 sources) Start: 09-29-2021 glucose (GLUTO SE) 40 % oral gel 15 g Start: [...] hours as needed for Cramping 0 Active 3 ml insulin aspart, human 100 unt/ml pen injector (20 sources) Insulin Analog Start: 08-06-2024 insulin aspart FlexPen (NovoLOG) 100 UNIT/ML pen Indications: Type 2 diabetes mellitus with hyperglycemia, with long-term current use of insulin (CMS/HCC) INJECT SUBCUTANEOUSLY THREE TIMES A DAY PER SLIDING SCALE; *30 TO 40 UNITS DAILY* 15 mL 5 08/06/2024 Active Start: 08-06-2024 insulin aspart FlexPen (NovoLOG) 100 UNIT/ML pen Indications: Type 2 diabetes mellitus with hyperglycemia, with long-term current use of insulin (CMS/HCC) INJECT SUBCUTANEOUSLY THREE TIMES A DAY PER SLIDING SCALE; *30 TO 40 UNITS DAILY* 15 mL 5 08/06/2024 Active Start: 08-05-2024 End: 08-06-2024 insulin aspart FlexPen (Ekaterina LOG) 100 UNIT/ML pen Indications: Type 2 diabetes mellitus with hyperglycemia, with long-term current use of insulin (CMS/HCC) INJECT SUBCUTANEOUSLY THREE TIMES A DAY PER SLIDING SCALE; *30 TO 40 UNITS DAILY* 15 mL 5 08/05/2024 08/06/2024 Discontinued (Reorder) Start: 08-10-2023 End: 08-05-2024 insulin aspart FlexPen (Ekaterina LOG) 100 UNIT/ML pen Indications: Type 2 diabetes mellitus with hyperglycemia, with long-term current use of insulin (CMS/HCC) INJECT SUBCUTANEOUSLY THREE TIMES A DAY PER SLIDING SCALE *30 TO 40 UNITS DAILY* 15 mL 3 07/29/2024 08/05/2024 Discontinued (Reorder) inject 0.07 mL by quiroz bcutaneous injection in the morning insulin aspart U-100 (NovoLOG) 100 unit/mL injection Inject 0.07 mL (7 Units total) under the skin in the morning and 0.07 mL (7 Units total) at noon and 0.07 mL (7 Units total) in the evening. Inject before meals. 7 units this am. Active insulin aspart U -100 (NovoLOG) 100 unit/mL injection Inject under the skin 3 (three) times a day before meals. Active 3 ml insulin detemir 100 unt/ml pen injector (3 sources) Insulin Analog Start: 09-07-2023 End: 09-06-2024 insulin detemir (Levemir FlexPen) 100 UNIT/ML pen Indications: Type 2 diabetes mellitus with microalbuminuria, with long-term current use of insulin (CMS/HCC) Inject 15 Units under the skin at bedtime 13.5 mL 3 09/07/2023 09/06/2024 Active 3 ml insulin glargine 100 unt/ml pen injector (20 sources) Insulin Analog Start: 07-24-2024 insulin glargi ne (Semglee) 100 UNIT/ML pen Indications: Type 2 diabetes mellitus with hyperglycemia, with long-term current use of insulin (CMS/HCC) Inject 30 Units under the skin at bedtime 9 mL 5 07/24/2024 Active Start: 06-07-2024 insulin glargi ne (Semglee) 100 UNIT/ML pen Indications: Type 2 diabetes mellitus with hyperglycemia, with long-term current use of insulin (CMS/HCC) Inject 30 Units under the skin at bedtime 9 mL 5 06/07/2024 Active Start: 05-29-2024 End: 06-07-2024 insulin glargine (Lantus Lucia oStar) 100 UNIT/ML pen Indications: Type 2 diabetes mellitus with microalbuminuria, with long-term current use of insulin (CMS/HCC) Inject 30 Units under the skin Daily 5 each 5 06/06/2024 06/07/2024 Discontinued Start: 10-01-2021 insulin glargi ne (LANTUS) injection vial 20 Units Start: 09-29-2021 insulin glargi ne (LANTUS) injection vial 10 Units inject 0.15 mL by quiroz bcutaneous injection in the morning insulin glargine (LANTUS) 100 unit/mL injection Inject 0.15 mL (15 Units total) under the skin in the morning. Active insulin glargine (LANTUS) 100 unit/mL injection Inject under the skin nightly. 0 Active insulin glargine (LANTUS SOLOSTAR) 100 UNIT/ML injection pen Inject into the skin 0 Active insulin lispro 100 unt/ml injectable solution (3 sources) Insulin Analog Start: 09-29-2021 End: 09-29-2021 insulin lispro (HUMALOG) injection vial 0-18 Units lamoTRIgine 200 mg oral tablet (20 sources) Mood Stabilizer, Anti-epileptic Agent Start: 08-22-2023 End: 08-21-2024 take 1 tablet by mouth at bedtime lamoTRIgine (LaMICtal) 200 MG tablet Indications: Mild episode of recurrent major depressive disorder (HCC) (CMS/HCC) Take 1 tablet (200 mg) by mouth at bedtime 90 tablet 3 08/22/2023 08/21/2024 Active lanolin 1000 mg/ml topical cream (20 sources) Start: 09-27-2023 lanolin (Lansinoh) cream Indications: Nipple pain Apply topically if needed for dry skin 7 g 09/27/2023 Active lidocaine 0.05 mg/mg medicated patch (3 sources) Antiarrhythmic, Amide Local Anesthetic Start: 07-24-2024 apply 1 dose transdermal route every twelve hours in the morning lidocaine (LIDODERM) 5 % Place 1 patch on the skin in the morning. Remove & Discard patch within 12 hours or as directed by MD. 30 patch 07/24/2024 Active lisinopril 2.5 mg oral tablet (20 sources) Angiotensin Converting Enzyme Inhibitor Start: 08-06-2024 take 1 tablet by mouth once daily lisinopril 2.5 MG tablet Indications: Chronic heart failure with preserved ejection fraction (HFpEF) (CMS/HCC) Take 1 tablet (2.5 mg) by mouth Daily 30 tablet 5 08/06/2024 Active Start: 08-06-2024 take 1 tablet by kalie th once daily lisinopril 2.5 MG tablet Indications: Chronic heart failure with preserved ejection fraction (HFpEF) (CMS/HCC) Take 1 tablet (2.5 mg) by mouth Daily 30 tablet 5 08/06/2024 Active Start: 07-13-2023 End: 08-06-2024 take 1 tablet by mouth in the morning lisinopril 2.5 MG tablet Take 2.5 mg by mouth in the morning. 07/13/2023 08/06/2024 Discontinued (Reorder) loperamide hydrochloride 2 mg oral capsule (1 source) Opioid Agonist Start: 10-01-2021 loperamide (IMODIUM) capsule 2 mg LORazepam 1 mg oral tablet (20 sources) Benzodiazepine Start: 07-08-2024 End: 08-09-2024 take 1 tablet by mouth three times daily as needed for anxiety LORazepam (Ativan) 1 MG tablet Indications: Anxiety state (CMS/HCC) Take 1 tablet (1 mg) by mouth 3 (three) times a day as needed for anxiety 90 tablet 07/10/2024 08/09/2024 Active Start: 05-16-2024 take 1 tablet by kalie th three times daily as needed for anxiety LORazepam (Ativan) 1 MG tablet Indications: Anxiety state (CMS/HCC) TAKE 1 TABLET BY MOUTH 3 TIMES DAILY NEEDED FOR ANXIETY 90 tablet 05/16/2024 Active Start: 09-20-2023 take 1 tablet by kalie th three times daily as needed LORazepam (Ativan) 1 MG tablet Indications: Anxiety state (CMS/HCC) TAKE 1 TABLET BY MOUTH 3 TIMES DAILY NEEDED 90 tablet 1 09/20/2023 Active 100 ml magnesium sulfate 10 mg/ml injection (1 source) Start: 09-28-2021 magnesium sulf ate 1000 mg in dextrose 5% 100 mL IVPB metoprolol tartrate 50 mg oral tablet (20 sources) beta-Adrenergi c Flory Start: 07-31-2023 take 1 tablet by mouth every twelve hours, then take 1 tablet by mouth every two hours metoprolol tartrate (Lopressor) 50 MG tablet take 1 tablet by mouth [address] AND 1 TABLET [address] 07/31/2023 Active MOUNJARO 2.5 mg/0.5 mL pen injector (10 sources) inject 2.5 mg by subcutaneous injection every week MOUNJARO 2.5 mg/0.5 mL pen injector Inject 2.5 mg under the skin once a week. Active MOUNJARO 2.5 mg/ 0.5 mL pen injector inject 2 & 1/2 milligrams subcutaneously ONCE EVERY WEEK Active nabumetone 500 mg oral tablet (20 sources) Nonsteroidal Anti-inflammatory Drug Start: 05-16-2024 take 1 tablet by mouth twice daily nabumetone (Relafen) 500 MG tablet Indications: Carpal tunnel syndrome of left wrist TAKE 1 TABLET BY MOUTH TWICE DAILY IF NEEDED 60 tablet 5 05/16/2024 Active Start: 09-05-2023 take 1 tablet by kalie twice daily as needed for pain nabumetone (Relafen) 500 MG tablet Indications: Carpal tunnel syndrome of left wrist Take 1 tablet (500 mg) by mouth 2 (two) times a day as needed for mild pain or moderate pain 60 tablet 2 09/05/2023 Active End: 10-02-2021 take 1 tablet by mouth twice daily nabumetone (RELAFEN) 500 MG tablet Take 500 mg by mouth 2 times daily 0 10/02/2021 Discontinued (Stop Taking at Discharge) naproxen 500 mg oral tablet (8 sources) Nonsteroidal Anti-inflammatory Drug Start: 06-29-2024 take 1 tablet by mouth in the morning, then take 1 tablet by mouth at mealtime naproxen (NAPROSYN) 500 mg tablet Take 1 tablet (500 mg total) by mouth in the morning and 1 tablet (500 mg total) in the evening. Take with meals. 30 tablet 06/29/2024 Active End: 10-02-2021 take 1 tablet by mouth twice daily at mealtime naproxen (NAPROSYN) 500 MG tablet Take 500 mg by mouth 2 times daily (with meals) 0 10/02/2021 Discontinued (Stop Taking at Discharge) 2 ml ondansetron 2 mg/ml injection (1 source) Serotonin-3 Receptor Antagonist Start: 09-28-2021 ondansetron (ZOFRAN) injection 4 mg 24 hr oxybutynin chloride 15 mg extended release oral tablet (20 sources) Cholinergic Muscarinic Antagonist Start: 06-19-2023 take 1 tablet by mouth every twenty-four hours in the morning oxybutynin XL (Ditropan-XL) 15 MG 24 hr tablet Take 15 mg by mouth in the morning. 06/19/2023 Active pantoprazole 40 mg delayed release oral tablet (20 sources) Proton Pump Inhibitor Start: 08-06-2024 take 1 tablet by mouth once daily pantoprazole (ProtoNix) 40 MG EC tablet Indications: Gastroesophageal reflux disease without esophagitis Take 1 tablet by mouth once daily 30 tablet 5 08/06/2024 Active Start: 08-06-2024 take 1 tablet by kalie th once daily pantoprazole (ProtoNix) 40 MG EC tablet Indications: Gastroesophageal reflux disease without esophagitis Take 1 tablet by mouth once daily 30 tablet 5 08/06/2024 Active Start: 07-18-2023 End: 08-06-2024 take 1 tablet by mouth once daily pantoprazole (ProtoNix) 40 MG EC tablet Indications: Gastroesophageal reflux disease without esophagitis Take 1 tablet by mouth once daily 30 tablet 5 07/22/2024 08/06/2024 Discontinued (Reorder) pioglitazone 45 mg oral tablet (20 sources) Peroxisome Proliferator Receptor alpha Agonist, Peroxisome Proliferator Receptor gamma Agonist, Thiazolidinedione Start: 06-19-2023 End: 07-22-2025 take 1 tablet by mouth once daily pioglitazone (Actos) 45 MG tablet Indications: Type 2 diabetes mellitus with microalbuminuria, with long-term current use of insulin ([facility]) Take 1 tablet (45 mg) by mouth Daily 30 tablet 11 07/22/2024 07/22/2025 Active polyethylene glycol 3350 11037 mg powder for oral solution (1 source) Osmotic Laxative Start: 09-28-2021 polyethylene glycol (GLYCOLAX) packet 17 g Potassium Chloride (2 sources) Start: 09-30-2021 potassium chloride (KLOR-CON M) extended release tablet 40 mEq Start: 09-28-2021 End: 09-29-2021 potassium chloride 10 mEq/10 0 mL IVPB (Peripheral Line) prazosin 2 mg oral capsule (20 sources) alpha-Adrenergic Flory Start: 06-19-2023 prazosin (Minipress) 2 MG capsule 06/19/2023 Active SEMGLEE,INSULIN GLARG-YFGN,PEN 100 unit/mL (3 mL) insulin pen (8 sources) Start: 06-10-2024 SEMGLEE,INSULIN GLARG-YFGN,PEN 100 unit/mL (3 mL) insulin pen Inject into the appropriate muscle. 06/10/2024 Active sertraline 100 mg oral tablet (20 sources) Serotonin Reuptake Inhibitor Start: 01-22-2024 End: 01-21-2025 take 2 tablets by mouth once daily sertraline (Zoloft) 100 MG tablet Indications: JOHN (generalized anxiety disorder) (CMS/HCC) Take 2 tablets (200 mg) by mouth Daily 60 tablet 11 01/22/2024 01/21/2025 Active take 1 tablet by mouth in the mo rning sertraline (ZOLOFT) 100 mg tablet Take 1 tablet (100 mg total) by mouth in the morning. Active take 2 tablets by mouth in the m orning sertraline (Zoloft) 100 MG tablet Take 200 mg by mouth in the morning. 0 Active sodium phosphate 10 mmol in dextrose 5 % 250 mL IVPB (1 source) Start: 09-28-2021 sodium phospha te 10 mmol in dextrose 5 % 250 mL IVPB SUMAtriptan 25 mg oral tablet (20 sources) Serotonin-1b and Serotonin-1d Receptor Agonist Start: 03-18-2024 SUMAtriptan (Imitrex ) 25 MG tablet Indications: Migraine without aura and without status migrainosus, not intractable (CMS/HCC) TAKE 1 TABLET BY MOUTH NEEDED 9 tablet 10 03/18/2024 Active Start: 06-19-2023 SUMAtriptan (I mitrex) 25 MG tablet Take 25 mg by mouth if needed. 0 06/19/2023 Active Tirzepatide (Mounjaro) 2.5 MG/0.5ML solution pen-injector (17 sources) Start: 05-16-2024 End: 08-06-2024 inject 2.5 mg by subcutaneous injection every week Tirzepatide (Mounjaro) 2.5 MG/0.5ML solution pen-injector Indications: Type 2 diabetes mellitus with hyperglycemia, with long-term current use of insulin ([facility]/HCC) INJECT 2.5MG SUBCUTANEOUSLY ONCE WEEKLY 2 mL 5 05/16/2024 08/06/2024 Discontinued Start: 05-16-2024 inject 2.5 mg by sub cutaneous injection every week Tirzepatide (Mounjaro) 2.5 MG/0.5ML solution pen-injector Indications: Type 2 diabetes mellitus with hyperglycemia, with long-term current use of insulin (CMS/HCC) INJECT 2.5MG SUBCUTANEOUSLY ONCE WEEKLY 2 mL 5 05/16/2024 Active Tirzepatide (Mounjaro) 5 MG/0.5ML solution pen-injector (17 sources) Start: 05-13-2024 End: 08-06-2024 inject 5 mg by subcutaneous injection every week Tirzepatide (Mounjaro) 5 MG/0.5ML solution pen-injector Indications: Type 2 diabetes mellitus with hyperglycemia, with long-term current use of insulin (CMS/HCC) Inject 5 mg under the skin 1 (one) time per week 2 mL 5 05/13/2024 08/06/2024 Discontinued Start: 05-13-2024 inject 5 mg by subcu taneous injection every week Tirzepatide (Mounjaro) 5 MG/0.5ML solution pen-injector Indications: Type 2 diabetes mellitus with hyperglycemia, with long-term current use of insulin (CMS/HCC) Inject 5 mg under the skin 1 (one) time per week 2 mL 5 05/13/2024 Active Tirzepatide (Mounjaro) 7.5 MG/0.5ML solution auto-injector (2 sources) Start: 08-06-2024 inject 7.5 mg by subcutaneous injection every week Tirzepatide (Mounjaro) 7.5 MG/0.5ML solution auto-injector Indications: Type 2 diabetes mellitus with hyperglycemia, with long-term current use of insulin (CMS/HCC) Inject 7.5 mg under the skin 1 (one) time per week 2 mL 5 08/06/2024 Active topiramate 25 mg oral capsule (8 sources) take 1 capsule by mouth in the morning, then take 1 capsule by mouth at bedtime topiramate (TOPAMAX) 25 mg capsule Take 1 capsule (25 mg total) by mouth in the morning and 1 capsule (25 mg total) before bedtime. Active traZODone hydrochloride 150 mg oral tablet (20 sources) Serotonin Reuptake Inhibitor traZODone (Desyrel) 150 MG tablet 1 (one) time each day at the same time. Active Trelegy Ellipta 200-62.5-25 MCG/ACT aerosol powder (17 sources) Start: 03-21-2024 take 1 puff(s) by inhalation in the morning Chriss Ellipta 200-62.5-25 MCG/ACT aerosol powder Inhale 1 puff in the morning. 03/21/2024 Active TRULICITY 4.5 mg/0.5 mL pen injector (2 sources) Start: 11-25-2023 inject 4.5 mg by subcutaneous injection every week TRULICITY 4.5 mg/0.5 mL pen injector INJECT 4.5 MG SUBCUTANEOUSLY ONCE EVERY WEEK 11/25/2023 Active Completed/Discontinued Medications Medication Drug Class(es) Dates Sig [...] mg IVPB in 50 mL D5W minibag glipiZIDE 10 mg oral tablet (1 source) [...] 10-01-2021 iohexol (OMNIPAQUE 240) injection 50 mL potassium phosphate 30 mmol in dextrose 5 [...] Classification Problem Date Documented Da te Episodic/Chronic Anxiety disorders (20 sources) Anxiety disorder, unspecified; Translations: [Anxiety state] Onset: 0 04-06-2023 Chronic Asthma (20 sources) Moderate persistent asthma, uncomplicated; Translations: [Uncomplicated moderate persistent asthma] Onset: 4 04-03-2024 Chronic Chronic obstructive pulmonary disease and bronchiectasis (7 sources) Acute exacerbation of chronic obstructive airways disease; Translations: [Chronic obstructive pulmonary disease with (acute) exacerbation] Onset: 4 07-22-2024 Chronic Congestive heart failure; nonhypertensive (4 sources) Chronic heart failure co-occurrent with normal ejection fraction; Translations: [Chronic diastolic (congestive) heart failure] Onset: 3 08-06-2024 Chronic Diabetes mellitus with complications (20 sources) Type 1 diabetes mellitus; Translations: [Type 1 diabetes mellitus with ketoacidosis without coma] Onset: 0 Resolved: 3 Chronic Disorders of lipid metabolism (20 sources) Dyslipidemia; Translations: [Hyperlipidemia, unspecified] Onset: 0 08-10-2023 Chronic Esophageal disorders (20 sources) Gastroesophageal reflux disease; Translations: [Gastro-esophageal reflux disease without esophagitis] Onset: 3 04-06-2023 Chronic Headache; including migraine (20 sources) Migraine without aura, not refractory ; Translations: [Migraine without aura, not intractable, without status migrainosus] Onset: 3 04-06-2023 Chronic Menopausal disorders (20 sources) Menopausal and female climacteric states; Translations: [Menopausal flushing] Onset: 3 Chronic Mood disorders (20 sources) Major depressive disorder, recurrent, unspecified; Translations: [Recurrent major depressive episodes, mild ] Onset: 3 04-06-2023 Chronic Osteoarthritis (20 sources) Unspecified osteoarthritis, unspecified site; Translations: [Osteoarthritis of knee] Onset: 2 04-06-2023 Chronic Other acquired deformities (20 sources) Contracture of ankle joint; Translations: [Contracture, unspecified ankle] Onset: 3 04-06-2023 Chronic Other aftercare (1 source) Other group home (current) drug therapy; Translations: [OTH LONG-TERM CURRENT DRUG THERAPY] Onset: 3 Episodic Other diseases of bladder and urethra (20 sources) Overactive bladder; Translations: [Overactive bladder] Onset: 3 04-06-2023 Chronic Other gastrointestinal disorders (1 source) Irritable bowel syndrome with diarrhea; Translations: [IRRITABLE BOWEL SYND W/DIARRHEA] Onset: 3 Chronic Other gastrointestinal disorders (20 sources) Irritable bowel syndrome with diarrhea; Translations: [Irritable bowel syndrome with diarrhea] Onset: 3 04-06-2023 Chronic Other gastrointestinal disorders (4 sources) Change in bowel habit; Translations: [CHANGE IN BOWEL HABIT] Onset: 3 Episodic Other nervous system disorders (20 sources) Chronic pain; Translations: [Other chronic pain] Onset: 3 Resolved: 3 08-10-2023 Chronic Other nervous system disorders (17 sources) Carpal tunnel syndrome of right wrist; Translations: [Carpal tunnel syndrome, right upper limb] Onset: 4 01-04-2024 Chronic Other nervous system disorders (1 source) Postoperative pain ; Translations: [Other acute postprocedural pain] 06-14-2024 Episodic Other non-traumatic joint disorders (20 sources) Derangement of left shoulder joint; Translations: [Other specific joint derangements of left shoulder, not elsewhere classified] Onset: 3 04-06-2023 Chronic Other non-traumatic joint disorders (1 source) Knee pain Onset: 4 Episodic Other nutritional; endocrine; and metabolic disorders (20 sources) Body mass index 40+ - severely obese; Translations: [Morbid (severe) obesity due to excess calories] Onset: 3 Resolved: 4 06-05-2023 Chronic Other nutritional; endocrine; and metabolic disorders (19 sources) Morbid obesity; Translations: [Morbid (severe) obesity due to excess calories] Onset: 3 04-06-2023 Chronic Other nutritional; endocrine; and metabolic disorders (2 sources) Morbid (severe) obesity due to excess calories; Translations: [Morbid (severe) obesity due to excess calories] Onset: 4 Chronic Other nutritional; endocrine; and metabolic disorders (17 sources) Alveolar hypoventilation; Translations: [Morbid (severe) obesity with alveolar hypoventilation] Onset: 4 01-04-2024 Chronic Other nutritional; endocrine; and metabolic disorders (2 sources) Severe obesity; Translations: [Class 3 severe obesity due to excess calories with serious comorbidity and body mass index (BMI) of 40.0 to 44.9 in adult] Onset: 3 08-06-2024 Chronic Other screening for suspected conditions (not mental disorders or infectious disease) (20 sources) Encounter for screening for malignant neoplasm of cervix; Translations: [Encounter for screening mammogram for malignant neoplasm of breast] Onset: 2 Episodic Other upper respiratory disease (20 sources) Allergic rhinitis; Translations: [Allergic rhinitis, unspecified] Onset: 0 04-06-2023 Chronic Pulmonary heart disease (16 sources) Pulmonary hypertension; Translations: [Pulmonary hypertension, unspecified] Onset: 4 06-20-2024 Chronic Residual codes; unclassified (3 sources) Obstructive sleep apnea (adult) (pediatric); Translations: [OBSTRUCTIVE SLEEP APNEA] Onset: 3 Chronic Residual codes; unclassified (20 sources) Obstructive sleep apnea syndrome; Translations: [Obstructive sleep apnea (adult) (pediatric)] Onset: 0 06-05-2023 Chronic Residual codes; unclassified (1 source) Sleep apnea Onset: 4 Chronic Residual codes; unclassified (2 sources) Pain; Translations: [Pain] Onset: 3 Episodic Residual codes; unclassified (1 source) Generalized edema; Translations: [Generalized edema] Onset: 4 Episodic Respiratory failure; insufficiency; arrest (adult) (20 sources) Chronic respiratory failure with hypoxia; Translations: [Chronic hypoxemic respiratory failure] Onset: 4 04-03-2024 Chronic Spondylosis; intervertebral disc disorders; other back problems (20 sources) Spondylosis without myelopathy; Translations: [Spondylosis without myelopathy or radiculopathy, site unspecified] Onset: 0 04-06-2023 Chronic Unclassified (2 sources) Post-op; Translations: [Post-op] Onset: 3 Unclassified (1 source) EMS Onset: 4 Unclassified (1 source) Female Problem Onset: 4 Past or Other Problems Problem Classification Problem Date Documented Da te Episodic/Chronic Abdominal hernia (1 source) Umbilical hernia without obstruction or gangrene; Translations: [Umbilical hernia without obstruction or gangrene] Onset: 10-27-2023 Episodic Abdominal pain (5 sources) Unspecified abdominal pain; Translations: [Right lower quadrant pain] Onset: 12-26-2022 Episodic Acquired foot deformities (20 sources) Plantarflexion deformity of left foot; Translations: [Other acquired deformities of left foot] Onset: 04-06-2023 04-06-2023 Episodic Acute and unspecified renal failure (20 sources) Acute renal impairment; Translations: [Acute kidney failure with tubular necrosis] Onset: 09-30-2021 Resolved: 08-10-2023 Episodic Coronary atherosclerosis and other heart disease (19 sources) Preinfarction syndrome; Translations: [Unstable angina] Onset: 06-05-2023 Resolved: 07-13-2023 07-13-2023 Chronic Developmental disorders (20 sources) Developmental delay; Translations: [Developmental disorder of scholastic skills, unspecified] Onset: 09-30-2009 Resolved: 08-10-2023 Chronic Diabetes mellitus without complication (20 sources) Type 2 diabetes mellitus without complication; Translations: [Type 2 diabetes mellitus without complications] Onset: 09-30-2009 Resolved: 08-10-2023 06-05-2023 Chronic Diabetes mellitus without complication (20 sources) Hyperglycemia; Translations: [Hyperglycemia, unspecified] Onset: 03-01-2019 Resolved: 08-10-2023 03-01-2019 Episodic Fluid and electrolyte disorders (20 sources) Metabolic acidosis, increased anion gap (IAG); Translations: [Acidosis] Onset: 09-30-2021 Resolved: 08-10-2023 Episodic Immunizations and screening for infectious disease (1 source) Encounter for screening for human papillomavirus (HPV); Translations: [ENC SCREENING HUMAN PAPILLOMAVIRUS] Onset: 07-18-2022 Episodic Lymphadenitis (20 sources) Mediastinal lymphadenopathy; Translations: [Localized enlarged lymph nodes] Onset: 11-09-2023 11-09-2023 Episodic Menstrual disorders (20 sources) Irregular menstruation, unspecified; Translations: [Missed period] Onset: 09-16-2022 Resolved: 08-10-2023 08-10-2023 Chronic Mood disorders (19 sources) Mood disorders Onset: 06-05-2023 06-05-2023 Nonspecific chest pain (20 sources) Chest pain; Translations: [Chest pain, unspecified] Onset: 06-04-2023 Resolved: 11-02-2023 06-05-2023 Episodic Other aftercare (2 sources) 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 insulin; Translations: [LONG-TERM CURRENT USE OF INSULIN] Onset: 01-12-2023 Episodic Other circulatory disease (17 sources) Elevated blood-pressure reading without diagnosis of hypertension; Translations: [Elevated blood-pressure reading, without diagnosis of hypertension] Onset: 01-04-2024 01-04-2024 Episodic Other gastrointestinal disorders (20 sources) Incontinence of feces; Translations: [Full incontinence of feces] Onset: 06-22-2016 Resolved: 08-10-2023 08-10-2023 Episodic Other lower respiratory disease (20 sources) Cavitation of lung; Translations: [Other disorders of lung] Onset: 08-10-2023 Resolved: 05-13-2024 08-10-2023 Episodic Other lower respiratory disease (13 sources) Nodule of lung; Translations: [Solitary pulmonary nodule] Onset: 02-08-2024 11-10-2023 Episodic Other lower respiratory disease (2 sources) Solitary pulmonary nodule; Translations: [Solitary pulmonary nodule] Onset: 02-08-2024 Episodic Other lower respiratory disease (3 sources) Hypoxemia; Translations: [Hypoxemia] Onset: 12-20-2023 Episodic Other lower respiratory disease (3 sources) Other forms of dyspnea; Translations: [Other forms of dyspnea] Onset: 02-08-2024 Episodic Other lower respiratory disease (1 source) Cough Onset: 11-10-2023 Episodic Other lower respiratory disease (2 sources) Shortness of breath Onset: 11-10-2023 Episodic Other lower respiratory disease (1 source) Wheezing Onset: 11-10-2023 Episodic Other lower respiratory disease (2 sources) Other disorders of lung; Translations: [Other disorders of lung] Onset: 10-20-2023 Episodic Other lower respiratory disease (17 sources) Hypoxia; Translations: [Hypoxemia] Onset: 01-04-2024 01-04-2024 Episodic Other lower respiratory disease (12 sources) Dyspnea on exertion; Translations: [Other forms of dyspnea] Onset: 02-08-2024 02-08-2024 Episodic Other lower respiratory disease (1 source) Shortness of breath; Translations: [Shortness of breath] Onset: 11-17-2023 Episodic Other nervous system disorders (20 sources) Lesion of ulnar nerve, left upper limb; Translations: [Lesion of ulnar nerve] Onset: 11-04-2022 Resolved: 08-10-2023 Chronic Other nervous system disorders (20 sources) Carpal tunnel syndrome of left wrist; Translations: [Carpal tunnel syndrome, left upper limb] Onset: 04-06-2023 Resolved: 05-13-2024 04-06-2023 Chronic Other non-traumatic joint disorders (20 sources) Pain in left shoulder; Translations: [Pain in joint, shoulder region] Onset: 04-06-2023 Resolved: 08-10-2023 08-10-2023 Episodic Other non-traumatic joint disorders (20 sources) Shoulder joint pain; Translations: [Pain in unspecified shoulder] Onset: 04-06-2021 Resolved: 08-10-2023 08-10-2023 Episodic Other non-traumatic joint disorders (18 sources) Pain in right knee; Translations: [Pain in joint, lower leg] Onset: 05-16-2024 Resolved: 08-06-2024 05-29-2024 Episodic Other nutritional; endocrine; and metabolic disorders (20 sources) Developmental delay; Translations: [Unspecified lack of expected normal physiological development in childhood] Onset: 09-29-2021 06-05-2023 Episodic Other conditions (20 sources) Convulsions in the ; Translations: [Convulsions of ] Onset: 09-30-2009 Resolved: 08-10-2023 08-10-2023 Episodic Phlebitis; thrombophlebitis and thromboembolism (1 source) Personal history of other venous thrombosis and embolism; Translations: [PERS HX OTH VENOUS THROMBOSIS AND EMBO] Onset: 01-25-2022 Episodic Pneumonia (except that caused by tuberculosis or sexually transmitted disease) (20 sources) Infective pneumonia; Translations: [Pneumonia, unspecified organism] Onset: 09-29-2021 Resolved: 08-10-2023 Episodic Poisoning by other medications and drugs [...] OTH PART DIGESTV TRACT] Onset: 01-25-2022 Episodic Residual codes; unclassified (18 sources) Edema; Translations: [Edema, unspecified] Onset: 04-06-2023 04-06-2023 Episodic Unclassified (2 sources) Patient encounter status 08-06-2024 Urinary tract infections (12 sources) Acute cystitis; Translations: [Acute cystitis without hematuria] Onset: 12-21-2023 12-21-2023 Episodic Viral infection (20 sources) Genital warts; Translations: [Anogenital (venereal) warts] Onset: 04-06-2023 04-06-2023 Episodic Results Test Name Value Interpretation Reference Range Facil ity BASIC METABOLIC PANLon 07-30 Anion gap [Moles/Vol] 8 mmol/L Normal 5-15 [facility] Comment on above: Performed By: #### 8 0385-8 #### [facility] ([id number]) [address] [place] [address] 67432 Calcium [Mass/Vol] 9.9 mg/dL Normal 8.5-10.5 [facility] Comment on above: Performed By: #### 8 0385-8 #### [facility] ([id number]) [address] [place] [address] 49516 Chloride [Moles/Vol] 92 mmol/L Low 98-109 [facility] Comment on above: Performed By: #### 8 0385-8 #### [facility] ([id number]) [address] [place] [address] 99425 CO2 [Moles/Vol] 32 mmol/L Normal 22-32 [facility] Comment on above: Performed By: #### 8 0385-8 #### [facility] ([id number]) [address] [place] [address] 94096 Creatinine [Mass/Vol] 0.94 mg/dL Normal 0.40-1.00 [facility] Comment on above: Result Comment: METH OD TRACEABLE TO IDMS STANDARD Performed By: #### 8 0385-8 #### [facility] ([id number]) [address] [place] [address] 48983 GFR/1.73 sq M.predicted among non-blacks MDRD (S/P/Bld) [Vol rate/Area] 76 mL/min/{1.73_m2} Normal >59 [facility] Comment on above: Result Comment: Reported eGFR is based on the CKD-EPI 1 equation that does not use a race coefficient. Performed By: #### 8 0385-8 #### [facility] ([id number]) [address] [place] [address] 94995 Glucose [Mass/Vol] 577 mg/dL Critically high 65-99 [facility] Comment on above: Performed By: #### 8 0385-8 #### [facility] ([id number]) [address] [place] [address] 28831 Potassium [Moles/Vol] 4.7 mmol/L Normal 3.5-5.0 [facility] Comment on above: Performed By: #### 8 0385-8 #### [facility] ([id number]) [address] [place] [address] 55540 Sodium [Moles/Vol] 132 mmol/L Low 134-146 [facility] Comment on above: Performed By: #### 8 0385-8 #### [facility] ([id number]) [address] [place] [address] 60183 Urea nitrogen [Mass/Vol] 25 mg/dL High 5-23 [facility] Comment on above: Performed By: #### 8 0385-8 #### [facility] ([id number]) [address] [place] [address] 76769 CBC AND AUTO DIFFon 07-23- 24 ABSOLUTE BASOPHIL 0.0 X10E9/L Normal 0.0-0.2 [facility] Comment on above: Performed By: #### 8 0385-8 #### [facility] ([id number]) [address] [place] [address] 28660 ABSOLUTE NEUTROPHIL 7.2 X10E9/L High 1.5-6.6 [facility] Comment on above: Performed By: #### 8 0385-8 #### [facility] ([id number]) [address] [place] [address] 41074 Basophils/100 WBC (Bld) 0.2 % Normal [facility] Comment on above: Performed By: #### 8 0385-8 #### [facility] ([id number]) [address] [place] [address], [place] [address] Eosinophils (Bld) [#/Vol] 0.0 10*3/uL Normal 0.0-0.4 [facility] Comment on above: Performed By: #### 8 0385-8 #### [facility] ([id number]) [address] [place] [address] 81238 Eosinophils/100 WBC (Bld) 0.2 % Normal [facility] Comment on above: Performed By: #### 8 0385-8 #### [facility] ([id number]) [address] [place] [address] 06784 Erythrocyte distribution width (RBC) [Ratio] 13.5 % Normal 11.5-15.0 [facility] Comment on above: Performed By: #### 8 0385-8 #### [facility] ([id number]) [address] [place] [address] 79749 Hematocrit (Bld) [Volume fraction] 33.7 % Low 35-47 [facility] [facility] Comment on above: Performed By: #### 8 0385-8 #### [facility] ([id number]) [address] [place] [address] 94023 Hemoglobin (Bld) [Mass/Vol] 11.1 g/dL Low 11.7-15.5 [facility] Comment on above: Performed By: #### 8 0385-8 #### [facility] ([id number]) [address] [place] [address] 30302 Lymphocytes (Bld) [#/Vol] 2.2 10*3/uL Normal 1.0-3.5 [facility] Comment on above: Performed By: #### 8 0385-8 #### [facility] ([id number]) [address] [place] [address] 64111 Lymphocytes/100 WBC (Bld) 21.9 % Normal [facility] Comment on above: Performed By: #### 8 0385-8 #### [facility] ([id number]) [address] [place] [address] 14029 MCH (RBC) [Entitic mass] 28.7 pg Normal 27-34 [facility] Comment on above: Performed By: #### 8 0385-8 #### [facility] ([id number]) [address] [place] [address] 59742 MCHC (RBC) [Mass/Vol] 32.9 g/dL Normal 32-36 [facility] Comment on above: Performed By: #### 8 0385-8 #### [facility] ([id number]) [address] [place] [address] 87893 MCV (RBC) [Entitic vol] 87 fL Normal 80-100 [facility] Comment on above: Performed By: #### 8 0385-8 #### [facility] ([id number]) [address] [place] [address] 97840 Monocytes (Bld) [#/Vol] 0.5 10*3/uL Normal 0-0.9 [facility] Comment on above: Performed By: #### 8 0385-8 #### [facility] ([id number]) [address] [place] [address] 86796 Monocytes/100 WBC (Bld) 5.4 % Normal [facility] Comment on above: Performed By: #### 8 0385-8 #### [facility] ([id number]) [address] [place] [address] 12988 Neutrophils/100 WBC (Bld) 72.3 % Normal [facility] Comment on above: Performed By: #### 8 0385-8 #### [facility] ([id number]) [address] [place] [address] 14225 Platelet mean volume (Bld) [Entitic vol] 7.4 fL Normal 7-12 [facility] Comment on above: Performed By: #### 8 0385-8 #### [facility] ([id number]) [address] [place] [address] 79151 Platelets (Bld) [#/Vol] 190 10*3/uL Normal 150-450 [facility] Comment on above: Performed By: #### 8 0385-8 #### [facility] ([id number]) [address] [place] [address] 73702 RBC COUNT 3.86 X10E12/L Normal 3.80-5.20 [facility] Comment on above: Performed By: #### 8 0385-8 #### [facility] ([id number]) [address] [place] [address] 49481 WBC (Bld) [#/Vol] 10.0 10*3/uL Normal 4.0-11.0 [facility] Comment on above: Performed By: #### 8 0385-8 #### [facility] ([id number]) [address] [place] [address] 83443 COMPREHENSIVE METABOLIC PANE Rodriguez 07-23-2024 Albumin [Mass/Vol] 3.3 g/dL Normal 3.2-5.3 [facility] Comment on above: Performed By: #### 8 0385-8 #### [facility] ([id number]) [address] [place] [address] 46764 ALP [Catalytic activity/Vol] 66 U/L Normal 39-130 [facility] Comment on above: Performed By: #### 8 0385-8 #### [facility] ([id number]) [address] [place] [address] 91365 ALT [Catalytic activity/Vol] 16 U/L Normal 0-31 [facility] Comment on above: Performed By: #### 8 0385-8 #### [facility] ([id number]) [address] [place] [address] 19468 Anion gap [Moles/Vol] 9 mmol/L Normal 5-15 [facility] Comment on above: Performed By: #### 8 0385-8 #### [facility] ([id number]) [address] [place] [address] 21117 AST [Catalytic activity/Vol] 11 U/L Normal 0-41 [facility] Comment on above: Performed By: #### 8 0385-8 #### [facility] ([id number]) [address] [place] [address] 32958 Bilirubin [Mass/Vol] 0.3 mg/dL Normal 0.3-1.2 [facility] Comment on above: Performed By: #### 8 0385-8 #### [facility] ([id number]) [address] [place] [address] 54133 Calcium [Mass/Vol] 8.5 mg/dL Normal 8.5-10.5 [facility] Comment on above: Performed By: #### 8 0385-8 #### [facility] ([id number]) [address] [place] [address] 15663 Chloride [Moles/Vol] 100 mmol/L Normal 98-109 [facility] Comment on above: Performed By: #### 8 0385-8 #### [facility] ([id number]) [address] [place] [address] 33604 CO2 [Moles/Vol] 24 mmol/L Normal 22-32 [facility] Comment on above: Performed By: #### 8 0385-8 #### [facility] ([id number]) [address] [place] [address] 53321 Creatinine [Mass/Vol] 1.13 mg/dL High 0.40-1.00 [facility] Comment on above: Result Comment: METH OD TRACEABLE TO IDMS STANDARD Performed By: #### 8 0385-8 #### [facility] ([id number]) [address] [place] [address] 20254 GFR/1.73 sq M.predicted among non-blacks MDRD (S/P/Bld) [Vol rate/Area] 61 mL/min/{1.73_m2} Normal >59 [facility] Comment on above: Result Comment: Reported eGFR is based on the CKD-EPI 2020 equation that does not use a race coefficient. Performed By: #### 8 0385-8 #### [facility] ([id number]) [address] [place] [address] 04157 Glucose [Mass/Vol] 307 mg/dL High 65-99 [facility] Comment on above: Performed By: #### 8 0385-8 #### [facility] ([id number]) [address] [place] [address] 38355 Potassium [Moles/Vol] 4.2 mmol/L Normal 3.5-5.0 [facility] Comment on above: Performed By: #### 8 0385-8 #### [facility] ([id number]) [address] [place] [address] 75044 Protein [Mass/Vol] 6.0 g/dL Normal 6.0-8.0 [facility] Comment on above: Performed By: #### 8 0385-8 #### [facility] ([id number]) [address] [place] [address] 61476 Sodium [Moles/Vol] 133 mmol/L Low 134-146 [facility] Comment on above: Performed By: #### 8 0385-8 #### [facility] ([id number]) [address] [place] [address] 98321 Urea nitrogen [Mass/Vol] 42 mg/dL High 5-23 [facility] Comment on above: Performed By: #### 8 0385-8 #### [facility] ([id number]) [address] [place] [address] 77237 Glucose Glucometer (BldC) [M ass/Vol]on 07-23-2024 Glucose [Mass/Vol] 169 mg/dL High 65-99 [facility] Glucose [Mass/Vol] 260 mg/dL High 65-99 [facility] MAGNESIUMon 07-23-2024 Magnesium [Mass/Vol] 2.2 mg/dL Normal 1.8-2.6 [facility] Comment on above: Performed By: #### 8 0385-8 #### [facility] ([id number]) [address] [place] [address] 54714 Procalcitonin [place] [Mass/Vol]o n 07-23-2024 PROCALCITONIN 0.20 ng/mL High <0.05 [facility] Comment on above: Result Comment: NOTE <0.50 ng/mL - Low risk of severe sepsis and/or septic shock. <2.00 ng/mL - Recommend retesting within 6-24 hours. >2.00 ng/mL - High risk of sepsis and/or septic shock. Performed By: #### 8 0385-8 #### [facility] ([id number]) [address] [place] [address] 84268 CBC AND AUTO DIFFon 07-22-20 ABSOLUTE BASOPHIL 0.0 X10E9/L Normal 0.0-0.2 [facility] Comment on above: Performed By: #### C ARUN BMP #### [facility] ([id number]) [address] [place] [address] 51553 ABSOLUTE NEUTROPHIL 7.1 X10E9/L High 1.5-6.6 [facility] Comment on above: Performed By: #### C ARUN, BMP #### [facility] ([id number]) [address] [place] [address] 02419 Basophils/100 WBC (Bld) 0.1 % Normal [facility] Comment on above: Performed By: #### C ARUN, BMP #### [facility] ([id number]) [address] [place] [address] 82004 Eosinophils (Bld) [#/Vol] 0.0 10*3/uL Normal 0.0-0.4 [facility] Comment on above: Performed By: #### C ARUN, BMP #### [facility] ([id number]) [address] [place] [address] 92823 Eosinophils/100 WBC (Bld) 0.0 % Normal [facility] Comment on above: Performed By: #### C ARUN, BMP #### [facility] ([id number]) [address] [place] [address] 32665 Erythrocyte distribution width (RBC) [Ratio] 13.2 % Normal 11.5-15.0 [facility] Comment on above: Performed By: #### C ARUN, BMP #### [facility] ([id number]) [address] [place] [address] 03278 Hematocrit (Bld) [Volume fraction] 37.6 % Normal 35-47 [facility] Comment on above: Performed By: #### C ARUN, BMP #### [facility] ([id number]) [address] [place] [address] 80844 Hemoglobin (Bld) [Mass/Vol] 12.4 g/dL Normal 11.7-15.5 [facility] Comment on above: Performed By: #### C ARUN, BMP #### [facility] ([id number]) [address] [place] [address] 35439 Lymphocytes (Bld) [#/Vol] 0.5 10*3/uL Low 1.0-3.5 [facility] Comment on above: Performed By: #### C BCA, BMP #### [facility] ([id number]) [address] [place] [address] 31915 Lymphocytes/100 WBC (Bld) 6.8 % Normal [facility] Comment on above: Performed By: #### C ARUN, BMP #### [facility] ([id number]) [address] [place] [address] 70166 MCH (RBC) [Entitic mass] 28.9 pg Normal 27-34 [facility] Comment on above: Performed By: #### C ARUN, BMP #### [facility] ([id number]) [address] [place] [address] 04459 MCHC (RBC) [Mass/Vol] 33.1 g/dL Normal 32-36 [facility] Comment on above: Performed By: #### C ARUN, BMP #### [facility] ([id number]) [address] [place] [address] 22911 MCV (RBC) [Entitic vol] 87 fL Normal 80-100 [facility] Comment on above: Performed By: #### C ARUN, BMP #### [facility] ([id number]) [address] [place] [address] 28999 Monocytes (Bld) [#/Vol] 0.1 10*3/uL Normal 0-0.9 [facility] Comment on above: Performed By: #### Shane DIAS, BMP #### [facility] ([id number]) [address] [place] [address] 85867 Monocytes/100 WBC (Bld) 0.8 % Normal [facility] Comment on above: Performed By: #### C ARUN, BMP #### [facility] ([id number]) [address] [place] [address] 59836 Neutrophils/100 WBC (Bld) 92.3 % Normal [facility] Comment on above: Performed By: #### Shane DIAS, BMP #### [facility] ([id number]) [address] [place] [address] 84099 Platelet mean volume (Bld) [Entitic vol] 7.5 fL Normal 7-12 [facility] Comment on above: Performed By: #### C ARUN, BMP #### [facility] ([id number]) [address] [place] [address] 65768 Platelets (Bld) [#/Vol] 171 10*3/uL Normal 150-450 [facility] Comment on above: Performed By: #### C ARUN, BMP #### [facility] ([id number]) [address] [place] [address] 38630 RBC COUNT 4.31 X10E12/L Normal 3.80-5.20 [facility] Comment on above: Performed By: #### C ARUN, BMP #### [facility] ([id number]) [address] [place] [address] 85267 WBC (Bld) [#/Vol] 7.7 10*3/uL Normal 4.0-11.0 [facility] Comment on above: Performed By: #### C ARUN, BMP #### [facility] ([id number]) [address] [place] [address] 24429 COMPREHENSIVE METABOLIC PANE [facility] 07-22-2024 Albumin [Mass/Vol] 3.5 g/dL Normal 3.2-5.3 [facility] Comment on above: Performed By: #### C ARUN, BMP #### [facility] ([id number]) [address] [place] [address] 29453 ALP [Catalytic activity/Vol] 80 U/L Normal 39-130 [facility] Comment on above: Performed By: #### C ARUN, BMP #### [facility] ([id number]) [address] [place] [address] 47374 ALT [Catalytic activity/Vol] U/L Normal 0-31 [facility] Comment on above: Performed By: #### C ARUN, BMP #### [facility] ([id number]) [address] [place] [address] 74679 Anion gap [Moles/Vol] 16 mmol/L High 5-15 [facility] Comment on above: Performed By: #### C BCA, BMP #### [facility] ([id number]) [address] [place] [address] 15347 AST [Catalytic activity/Vol] 26 U/L Normal 0-41 [facility] Comment on above: Performed By: #### C BCA, BMP #### [facility] ([id number]) [address] [place] [address] 26930 Bilirubin [Mass/Vol] 0.4 mg/dL Normal 0.3-1.2 [facility] Comment on above: Performed By: #### C ARUN, BMP #### [facility] ([id number]) [address] [place] [address] 80130 Calcium [Mass/Vol] 8.9 mg/dL Normal 8.5-10.5 [facility] Comment on above: Performed By: #### C BCA, BMP #### [facility] ([id number]) [address] [place] [address] 72596 Chloride [Moles/Vol] 99 mmol/L Normal 98-109 [facility] Comment on above: Performed By: #### C BCA, BMP #### [facility] ([id number]) [address] [place] [address] 42576 CO2 [Moles/Vol] 20 mmol/L Low 22-32 [facility] Comment on above: Performed By: #### C BCA, BMP #### [facility] ([id number]) [address] [place] [address] 96209 Creatinine [Mass/Vol] 1.14 mg/dL High 0.40-1.00 [facility] Comment on above: Result Comment: METH OD TRACEABLE TO IDMS STANDARD Performed By: #### C BCA, BMP #### [facility] ([id number]) [address] [place] [address] 25365 GFR/1.73 sq M.predicted among non-blacks MDRD (S/P/Bld) [Vol rate/Area] 60 mL/min/{1.73_m2} Normal >59 [facility] Comment on above: Result Comment: Reported eGFR is based on the CKD-EPI 2020 equation that does not use a race coefficient. Performed By: #### C ARUN, BMP #### [facility] ([id number]) [address] [place] [address] 52590 Glucose [Mass/Vol] 484 mg/dL Critically high 65-99 [facility] Comment on above: Performed By: #### C ARUN, BMP #### [facility] ([id number]) [address] [place] [address] 55360 Potassium [Moles/Vol] 4.1 mmol/L Normal 3.5-5.0 [facility] Comment on above: Performed By: #### C ARUN, BMP #### [facility] ([id number]) [address] [place] [address] 94087 Protein [Mass/Vol] 6.6 g/dL Normal 6.0-8.0 [facility] Comment on above: Performed By: #### C BCA, BMP #### [facility] ([id number]) [address] [place] [address] 00796 Sodium [Moles/Vol] 135 mmol/L Normal 134-146 [facility] Comment on above: Performed By: #### C BCA, BMP #### [facility] ([id number]) [address] [place] [address] 41381 Urea nitrogen [Mass/Vol] 28 mg/dL High 5-23 [facility] Comment on above: Performed By: #### C BCA, BMP #### [facility] ([id number]) [address] [place] [address] 98685 Glucose Glucometer (BldC) [M ass/Vol]on 07-22-2024 Glucose [Mass/Vol] 311 mg/dL High 65-99 [facility] Glucose [Mass/Vol] 339 mg/dL High 65-99 [facility] Glucose [Mass/Vol] 363 mg/dL High 65-99 [facility] Glucose [Mass/Vol] 395 mg/dL High 65-99 [facility] Glucose [Mass/Vol] 488 mg/dL Critically high 65-99 [facility] HGB A1C (GLYCO-HGB)on 2023 Glucose [Mass/Vol] 229 mg/dL Normal [facility] Comment on above: Performed By: #### C ARUN, BMP #### [facility] ([id number]) [address] [place] [address] 01600 HbA1c (Bld) [Mass fraction] 9.6 % High 4.4-5.6 [facility] Comment on above: Result Comment: NOTE ADA Guidelines Result HgbA1c Normal : less than 5.7 % Prediabetes : 5.7 % to 6.4 % Diabetes : > 6.4 % Use with caution in patients with abnormal hemoglobin variants as the half-life of red blood cells and in vivo glycation rates are affected. Performed By: #### C ARUN, BMP #### [facility] ([id number]) [address] [place] [address] 79122 MAGNESIUMon 07-22-2024 Magnesium [Mass/Vol] 1.8 mg/dL Normal 1.8-2.6 [facility] Comment on above: Performed By: #### C ARUN, BMP #### [facility] ([id number]) [address] [place] [address] 95499 BASIC METABOLIC PANLon 07-21 Anion gap [Moles/Vol] 10 mmol/L Normal 5-15 [facility] Comment on above: Performed By: #### C ARUN, BMP #### [facility] ([id number]) [address] [place] [address] 73098 Calcium [Mass/Vol] 9.2 mg/dL Normal 8.5-10.5 [facility] Comment on above: Performed By: #### C ARUN, BMP #### [facility] ([id number]) [address] [place] [address] 61853 Chloride [Moles/Vol] 100 mmol/L Normal 98-109 [facility] Comment on above: Performed By: #### C ARUN, BMP #### [facility] ([id number]) [address] [place] [address] 57356 CO2 [Moles/Vol] 29 mmol/L Normal 22-32 [facility] Comment on above: Performed By: #### C ARUN, BMP #### [facility] ([id number]) [address] [place] [address] 53654 Creatinine [Mass/Vol] 0.77 mg/dL Normal 0.40-1.00 [facility] Comment on above: Result Comment: METH OD TRACEABLE TO IDMS STANDARD Performed By: #### C ARUN, BMP #### [facility] ([id number]) [address] [place] [address] 02102 eGFR (CKD-EPI) NON-RACE DEPENDENT >90 Normal >59 [facility] Comment on above: Result Comment: Reported eGFR is based on the CKD-EPI 2020 equation that does not use a race coefficient. Performed By: #### C ARUN, BMP #### [facility] ([id number]) [address] [place] [address] 53908 Glucose [Mass/Vol] 254 mg/dL High 65-99 [facility] Comment on above: Performed By: #### C ARUN, BMP #### [facility] ([id number]) [address] [place] [address] 95223 Potassium [Moles/Vol] 4.2 mmol/L Normal 3.5-5.0 [facility] Comment on above: Performed By: #### C ARUN, BMP #### [facility] ([id number]) [address] [place] [address] 40724 Sodium [Moles/Vol] 139 mmol/L Normal 134-146 [facility] Comment on above: Performed By: #### C ARUN, BMP #### [facility] ([id number]) [address] [place] [address] 83935 Urea nitrogen [Mass/Vol] 23 mg/dL Normal 5-23 [facility] Comment on above: Performed By: #### C ARUN, BMP #### [facility] ([id number]) [address] [place] [address] 96667 CBC AND AUTO DIFFon 07-21-20 24 ABSOLUTE BASOPHIL 0.0 X10E9/L Normal 0.0-0.2 [facility] Comment on above: Performed By: #### C ARUN, BMP #### [facility] ([id number]) [address] [place] [address] 45203 ABSOLUTE NEUTROPHIL 2.7 X10E9/L Normal 1.5-6.6 [facility] Comment on above: Performed By: #### C ARUN, BMP #### [facility] ([id number]) [address] [place] [address] 98790 Basophils/100 WBC (Bld) 0.7 % Normal [facility] Comment on above: Performed By: #### C ARUN, BMP #### [facility] ([id number]) [address] [place] [address] 55994 Eosinophils (Bld) [#/Vol] 0.1 10*3/uL Normal 0.0-0.4 [facility] Comment on above: Performed By: #### C ARUN, BMP #### [facility] ([id number]) [address] [place] [address] 50894 Eosinophils/100 WBC (Bld) 1.4 % Normal [facility] Comment on above: Performed By: #### C ARUN, BMP #### [facility] ([id number]) [address] [place] [address] 18398 Erythrocyte distribution width (RBC) [Ratio] 13.3 % Normal 11.5-15.0 [facility] Comment on above: Performed By: #### C ARUN, BMP #### [facility] ([id number]) [address] [place] [address] 44641 Hematocrit (Bld) [Volume fraction] 41.2 % Normal 35-47 [facility] Comment on above: Performed By: #### C ARUN, BMP #### [facility] ([id number]) [address] [place] [address] 35499 Hemoglobin (Bld) [Mass/Vol] 13.6 g/dL Normal 11.7-15.5 [facility] Comment on above: Performed By: #### C ARUN, BMP #### [facility] ([id number]) [address] [place] [address] 28758 Lymphocytes (Bld) [#/Vol] 2.1 10*3/uL Normal 1.0-3.5 [facility] Comment on above: Performed By: #### C ARUN, BMP #### [facility] ([id number]) [address] [place] [address] 76464 Lymphocytes/100 WBC (Bld) 40.9 % Normal [facility] Comment on above: Performed By: #### C ARUN, BMP #### [facility] ([id number]) [address] [place] [address] 65010 MCH (RBC) [Entitic mass] 28.5 pg Normal 27-34 [facility] Comment on above: Performed By: #### Shane DIAS, BMP #### [facility] ([id number]) [address] [place] [address] 41646 MCHC (RBC) [Mass/Vol] 33.0 g/dL Normal 32-36 [facility] Comment on above: Performed By: #### C ARUN, BMP #### [facility] ([id number]) [address] [place] [address] 97938 MCV (RBC) [Entitic vol] 87 fL Normal 80-100 [facility] Comment on above: Performed By: #### Shane DIAS, BMP #### [facility] ([id number]) [address] [place] [address] 53425 Monocytes (Bld) [#/Vol] 0.2 10*3/uL Normal 0-0.9 [facility] Comment on above: Performed By: #### C ARUN, BMP #### [facility] ([id number]) [address] [place] [address] 63376 Monocytes/100 WBC (Bld) 4.6 % Normal [facility] Comment on above: Performed By: #### Shane DIAS, BMP #### [facility] ([id number]) [address] [place] [address] 71802 Neutrophils/100 WBC (Bld) 52.4 % Normal [facility] Comment on above: Performed By: #### C ARUN, BMP #### [facility] ([id number]) [address] [place] [address] 25172 Platelet mean volume (Bld) [Entitic vol] 7.0 fL Normal 7-12 [facility] Comment on above: Performed By: #### Shane DIAS, BMP #### [facility] ([id number]) [address] [place] [address] 31474 Platelets (Bld) [#/Vol] 190 10*3/uL Normal 150-450 [facility] Comment on above: Performed By: #### C ARUN, BMP #### [facility] ([id number]) [address] [place] [address] 61353 RBC COUNT 4.77 X10E12/L Normal 3.80-5.20 [facility] Comment on above: Performed By: #### C ARUN, BMP #### [facility] ([id number]) [address] [place] [address] 87841 WBC (Bld) [#/Vol] 5.2 10*3/uL Normal 4.0-11.0 [facility] Comment on above: Performed By: #### Shane DIAS, BMP #### [facility] ([id number]) [address] [place] [address] 57292 Fibrin D-dimer DDU (PPP) [Ma ss/Vol]on 07-21-2024 D DIMER 217 ng/mL DDU Normal <255 [facility] Comment on above: Result Comment: Results <255 ng/mL DDU: The presence of a VTE can safely be excluded with a negative D-Dimer result and Wells score. A negative result doesn't exclude the possibility of DIC. The test be repeated along with other diagnostic tests if the patient's symptoms persist or worsen. [email or web address]&u h=acaea Performed By: #### C ARUN, BMP #### [facility] ([id number]) [address] [place] [address] 42860 MAGNESIUMon 07-21-2024 Magnesium [Mass/Vol] 2.0 mg/dL Normal 1.8-2.6 [facility] Comment on above: Performed By: #### Shane DIAS, BMP #### [facility] ([id number]) [address] [facility], [place] [address] Natriuretic peptide B [Mass/ Vol]on 07-21-2024 Natriuretic peptide B (Bld) [Mass/Vol] 20 pg/mL Normal <100.0 [facility] Comment on above: Performed By: #### C BCA, BMP #### [facility] ([id number]) [address] [facility], [place] [address] SARS/FLU A+B/RSV by NAAT/Mol ecularon 07-21-2024 SARS/FLU A+B/RSV by NAAT/Molecular FLU A PCR Negative (qualifier value) FLU B PCR Negative (qualifier value) RSV by PCR Negative (qualifier value) SARS CoV 2 Not detected (qualifier value) NOTE The Xpert Xpress SARS-CoV-2/Flu/RSV Plus test is a rapid, multiplexed real-time RT-PCR test intended for the simultaneous qualitative detection and differentiation of SARS-CoV-2, influenza A, influenza B and respiratory syncytial virus (RSV) viral RNA from individuals suspected of respiratory viral infection consistent with COVID-19 by their healthcare provider. This test has not been validated in asymptomatic patients. The Xpert Xpress SARS-CoV-2 test is intended for use by qualified and trained operators who are performing tests using either [employer] or [employer] systems and is limited to laboratories that meet the CLIA requirements to perform high and moderate complexity tests. The Xpert Xpress SARS-CoV-2/Flu/RSV Plus is only for use under the Food and Drug Administration's Emergency Use Authorization. Results are for the simultaneous detection and differentiation of SARS-CoV-2, influenza A, influenza B and RSV nucleic acids in clinical specimens. SARS-CoV-2, influenza A, influenza B and RSV RNA identified by this test are generally detectable in upper respiratory samples during the acute phase of infection. Positive results are indicative of the presence of the identified virus, but do not rule out bacterial infection or co-infection with other pathogens not detected by this test. Clinical correlation with patient history and other diagnostic information is necessary to determine patient infection status. The agent detected may not be the definite cause of disease. Negative results do not preclude SARS-CoV-2, influenza A, influenza B and RSV infection and should not be used as the sole basis for treatment or other patient management decisions. Negative results must be combined with clinical observations, patient history and epidemiological information. An Invalid result may occur with specimen-associated inhibition unable to be resolved with specimen repeat. Fact Sheet for Healthcare Providers: https://www.fda.gov /media/441688/downl oad Fact Sheet for Patients: https://www.fda.gov /media/106146/downl oad Normal [facility] Comment on above: Performed By: #### C ARUN, BMP #### [facility] ([id number]) [address] [place] [address] 56610 THYROID PROFILEon 07-21-2024 Free T4 [Mass/Vol] 1.11 ng/dL Normal 0.61-1.60 [facility] Comment on above: Performed By: #### C ARUN, BMP #### [facility] ([id number]) [address] [place] [address] 79392 TSH 2.45 uIU/mL Normal 0.49-4.67 [facility] Comment on above: Performed By: #### Shane DIAS, BMP #### [facility] ([id number]) [address] [place] [address] 12271 Troponin I.cardiac High sens itivity method [Mass/Vol]on 07-21-2024 3 HOUR TROP I, HIGH SENSITIVITY 3 ng/L Normal <16 [facility] Comment on above: Performed By: #### C ARUN, BMP #### [facility] ([id number]) [address] [place] [address] 89965 1 HOUR TROP I, HIGH SENSITIVITY 3 ng/L Normal <16 [facility] Comment on above: Performed By: #### C ARUN, BMP #### [facility] ([id number]) [address] [place] [address] 59955 TROPONIN I, HIGH SENSITIVITY 3 ng/L Normal <16 [facility] Comment on above: Performed By: #### C ARUN, BMP #### [facility] ([id number]) [address] [facility], [place] [address] XR CHEST 1 VWon 07-21-2024 XR CHEST 1 VW XR CHEST 1 VW XR CHEST 1 VW IMPRESSION: Clinical Information: chest pain Comparison: 06/28/24. * No pulmonary edema or consolidation. * No effusions. * Stable heart size. * Mild elevation right hemidiaphragm. 9 Finalized by Shama Calvin MD on 07/21/2024 5:08 PM Normal [facility]R Postoperative Recordon 07-16-2024 MAGR Postoperative Record MAGR Phase II Record Summary Primary Physician: Arianna Miller DO Finalized Date/Time: 07/16/24 07:39:56 Pt. Name: CARISSA LOZADA./Sex: 1980 FEMALE Med Rec #: [id number] Physician: Arianna Miller DO Financial #: [id number] Pt. Type: D Room/Bed: / Admit/Disch: 06/17/24 08:13:31 - 06/17/24 11:42:00 Institution: Phase II Case Times MAGR Pre-Care Text: Patient is free from s/s of injury. Patient remains free from compromised physical state related to surgery or anesthesia. Patient comfort maintained. Patient/family verbalize understanding of discharge instructions. Entry 1 In PACU II 06/17/24 10:45:00 Discharge from PACU 06/17/24 11:41:00 II Last Modified By: Christen Chan RN 07/16/24 07:39:54 Post-Care Text: The patient remains free from s/s of injury. Patient's vital signs stable, circulation maintained, return to preop mental and physical status, opsite/dressing intact, minimal or absent nausea and vomiting, tolerates po intake. Patient verbalizes adequate pain control. Patient/family express understanding of discharge instructions. Finalized By: Christen Chan RN Document Signatures Signed By: Jennyfer Gresham RN 06/17/24 13:03 Christen Chan RN 07/16/24 07:39 Unfinalized History Date/Time Username Reason for Unfinalizing Freetext Reason for Unfinalizing 07/16/24 07:39 RSCOTT Correct Documentation Decreasing time by 1 minute in order for charges to drop. Normal [facility] BASIC METABOLIC PANLon 06-28 Anion gap [Moles/Vol] 10 mmol/L Normal 5-15 [facility] Comment on above: Performed By: #### B JOSÉ LUIS, 24023-0, CBCA, 03181-8 ####[facility] ([id number])[address] [place] [address] 25298 Calcium [Mass/Vol] 9.1 mg/dL Normal 8.5-10.5 [facility] Comment on above: Performed By: #### B JOSÉ LUIS, 35688-3, CBCA, 42974-2 ####[facility] ([id number])[address] [place] [address] 04470 Chloride [Moles/Vol] 103 mmol/L Normal 98-109 [facility] Comment on above: Performed By: #### B JOSÉ LUIS, 42061-6, CBCA, 54140-4 ####[facility] ([id number])[address] [place] [address] 74026 CO2 [Moles/Vol] 26 mmol/L Normal 22-32 [facility] Comment on above: Performed By: #### B JOSÉ LUIS, 01808-7, CBCA, 33076-4 ####[facility] ([id number])[address] [place] [address] 20021 Creatinine [Mass/Vol] 1.04 mg/dL High 0.40-1.00 [facility] Comment on above: Result Comment: METH OD TRACEABLE TO IDMS STANDARD Performed By: #### B JOSÉ LUIS, 25358-9, CBCA, 92195-1 ####[facility] ([id number])[address] [place] [address] 42176 GFR/1.73 sq M.predicted among non-blacks MDRD (S/P/Bld) [Vol rate/Area] 68 mL/min/{1.73_m2} Normal >59 [facility] Comment on above: Result Comment: Reported eGFR is based on the CKD-EPI 2020 equation that does not use a race coefficient. Performed By: #### B JOSÉ LUIS, 90303-4, CBCA, 53933-8 ####[facility] ([id number])[address] [place] [address] 88767 Glucose [Mass/Vol] 218 mg/dL High 65-99 [facility] Comment on above: Performed By: #### B JOSÉ LUIS, 93131-1, CBCA, 24320-9 ####[facility] ([id number])[address] [place] [address] 48842 Potassium [Moles/Vol] 4.0 mmol/L Normal 3.5-5.0 [facility] Comment on above: Performed By: #### Amber ORDONEZ, 93059-3, CBCA, 97621-5 ####[facility] ([id number])[address] [place] [address] 74087 Sodium [Moles/Vol] 139 mmol/L Normal 134-146 [facility] Comment on above: Performed By: #### Amber ORDONEZ, 89966-7, CBCA, 62089-1 ####[facility] ([id number])[address] [place] [address] 35627 Urea nitrogen [Mass/Vol] 30 mg/dL High 5-23 [facility] Comment on above: Performed By: #### B JOSÉ LUIS, 41564-5, CBCA, 54089-3 ####[facility] ([id number])[address] [place] [address] 03242 CBC AND AUTO DIFFon 10-25-20 24 ABSOLUTE BASOPHIL 0.0 X10E9/L Normal 0.0-0.2 [facility] Comment on above: Performed By: #### B JOSÉ LUIS, 34466-3, CBCA, 45582-0 ####[facility] ([id number])[address] [place] [address] 30961 ABSOLUTE NEUTROPHIL 3.7 X10E9/L Normal 1.5-6.6 [facility] Comment on above: Performed By: #### B JOSÉ LUIS, 17220-9, CBCA, 00672-0 ####[facility] ([id number])[address] [place] [address] 11456 Basophils/100 WBC (Bld) 0.6 % Normal [facility] Comment on above: Performed By: #### B JOSÉ LUIS, 97290-7, CBCA, 57982-4 ####[facility] ([id number])[address] [place] [address] 54045 Eosinophils (Bld) [#/Vol] 0.1 10*3/uL Normal 0.0-0.4 [facility] Comment on above: Performed By: #### B JOSÉ LUIS, 05204-1, CBCA, 81631-7 ####[facility] ([id number])[address] [place] [address] 12506 Eosinophils/100 WBC (Bld) 1.6 % Normal [facility] Comment on above: Performed By: #### Amber ORDONEZ, 91982-5, CBCA, 44738-5 ####[facility] ([id number])[address] [place] [address] 78312 Erythrocyte distribution width (RBC) [Ratio] 14.0 % Normal 11.5-15.0 [facility] Comment on above: Performed By: #### B JOSÉ LUIS, 31388-6, CBCA, 14013-6 ####[facility] ([id number])[address] [place] [address] 29575 Hematocrit (Bld) [Volume fraction] 37.6 % Normal 35-47 [facility] Comment on above: Performed By: #### B JOSÉ LUIS, 60524-2, CBCA, 75316-8 ####[facility] ([id number])[address] [place] [address] 14731 Hemoglobin (Bld) [Mass/Vol] 12.4 g/dL Normal 11.7-15.5 [facility] Comment on above: Performed By: #### B JOSÉ LUIS, 69339-2, CBCA, 34682-0 ####[facility] ([id number])[address] [place] [address] 46308 Lymphocytes (Bld) [#/Vol] 2.6 10*3/uL Normal 1.0-3.5 [facility] Comment on above: Performed By: #### Amber ORDONEZ, 60805-6, CBCA, 38809-5 ####[facility] ([id number])[address] [place] [address] 08005 Lymphocytes/100 WBC (Bld) 37.6 % Normal [facility] Comment on above: Performed By: #### Amber ORDONEZ, 30321-8, CBCA, 79346-0 ####[facility] ([id number])[address] [place] [address] 19081 MCH (RBC) [Entitic mass] 28.6 pg Normal 27-34 [facility] Comment on above: Performed By: #### B JOSÉ LUIS, 17801-8, CBCA, 45283-0 ####[facility] ([id number])[address] [place] [address] 65350 MCHC (RBC) [Mass/Vol] 32.9 g/dL Normal 32-36 [facility] Comment on above: Performed By: #### B JOSÉ LUIS, 83241-6, CBCA, 12357-2 ####[facility] ([id number])[address] [place] [address] 12679 MCV (RBC) [Entitic vol] 87 fL Normal 80-100 [facility] Comment on above: Performed By: #### B JOSÉ LUIS, 03432-7, CBCA, 50938-5 ####[facility] ([id number])[address] [place] [address] 45619 Monocytes (Bld) [#/Vol] 0.4 10*3/uL Normal 0-0.9 [facility] Comment on above: Performed By: #### B MP, 97212-0, CBCA, 99242-1 ####[facility] ([id number])[address] [place] [address] 70810 Monocytes/100 WBC (Bld) 5.6 % Normal [facility] Comment on above: Performed By: #### Amber ORDONEZ, 81097-0, CBCA, 76774-1 ####[facility] ([id number])[address] [place] [address] 28981 Neutrophils/100 WBC (Bld) 54.6 % Normal [facility] Comment on above: Performed By: #### Amber ORDONEZ, 13027-6, CBCA, 45604-0 ####[facility] ([id number])[address] [place] [address] 91595 Platelet mean volume (Bld) [Entitic vol] 6.9 fL Low 7-12 [facility] Comment on above: Performed By: #### B MP, 02164-2, CBCA, 14571-2 ####[facility] ([id number])[address] [place] [address] 67858 Platelets (Bld) [#/Vol] 224 10*3/uL Normal 150-450 [facility] Comment on above: Performed By: #### B JOSÉ LUIS, 55268-5, CBCA, 17489-7 ####[facility] ([id number])[address] [place] [address] 51483 RBC COUNT 4.32 X10E12/L Normal 3.80-5.20 [facility] Comment on above: Performed By: #### B MP, 36343-2, CBCA, 77890-4 ####[facility] ([id number])[address] [place] [address] 38513 WBC (Bld) [#/Vol] 6.8 10*3/uL Normal 4.0-11.0 [facility] Comment on above: Performed By: #### B MP, 10986-9, CBCA, 53760-6 ####[facility] ([id number])[address] [place] [address] 09533 Fibrin D-dimer DDU (PPP) [Ma ss/Vol]on 06-28-2024 D DIMER 220 ng/mL DDU Normal <255 [facility] Comment on above: Result Comment: Results <255 ng/mL DDU: The presence of a VTE can safely be excluded with a negative D-Dimer result and Wells score. A negative result doesn't exclude the possibility of DIC. The test be repeated along with other diagnostic tests if the patient's symptoms persist or worsen. [email or web address]&u h=acaea Performed By: #### B JOSÉ LUIS, 50991-2, CBCA, 63153-9 ####[facility] ([id number])[address] [place] [address] 25275 Troponin I.cardiac High sens itivity method [Mass/Vol]on 06-28-2024 3 HOUR TROP I, HIGH SENSITIVITY 39 ng/L High <16 [facility] Comment on above: Result Comment: Elevations of hs-Troponin may be due to causes other than myocardial ischemia. Recommend serial hs-Troponin testing be performed. For the initial evaluation and management of chest pain patients, refer to the algorithms linked below. Emergency Patient: [email or web address]/dv/dl.[email or web address]?[email or web address]&u h=acaea Inpatient: [email or web address].[email or web address]/dl.[email or web address]?[email or web address]&b=77376&u h=acaea Performed By: #### C BCA, BMP #### [facility] ([id number]) [address] [place] [address] 1 HOUR TROP I, HIGH SENSITIVITY 35 ng/L High <16 [facility] Comment on above: Result Comment: Elevations of hs-Troponin may be due to causes other than myocardial ischemia. Recommend serial hs-Troponin testing be performed. For the initial evaluation and management of chest pain patients, refer to the algorithms linked below. Emergency Patient: [email or web address]://www.[email or web address]/dl.aspx?[email or web address]&[email or web address]&u h=acaea Inpatient: [email or web address]/dv/dl.[email or web address]?a=[email or web address]&o=51494&u h=acaea Performed By: #### 8 9579-7 ####[facility] ([id number])[address] [place] [address] TROPONIN I, HIGH SENSITIVITY 32 ng/L High <16 [facility] Comment on above: Result Comment: Elevations of hs-Troponin may be due to causes other than myocardial ischemia. Recommend serial hs-Troponin testing be performed. For the initial evaluation and management of chest pain patients, refer to the algorithms linked below. Emergency Patient: [email or web address]://[email or web address]/dv/dl.[email or web address]?[email or web address]&j=32866&u h=acaea Inpatient: [email or web address]/dv/dl.[email or web address]?[email or web address]&[email or web address]&u h=acaea Performed By: #### B MP, 00746-3, CBCA, 43600-0 ####[facility] ([id number])[address] [place] [address] XR CHEST 1 VWon 06-28-2024 XR CHEST 1 VW XR CHEST 1 VW XR CHEST 1 VW HISTORY: Chest pain COMPARISON: Chest radiograph 12/20/2023 FINDINGS: Portable AP upright view of the chest obtained. The cardiomediastinal silhouette is within normal limits. No pleural effusion. No consolidation. IMPRESSION: No radiographic evidence of acute cardiopulmonary process. Approved by Resident: Andi Ballard DO on 06/28/2024 8:06 PM I, Stephan Richardson MD have personally reviewed the image(s) and agree with and/or edited the report 7 Finalized by Stephan Richardson MD on 06/28/2024 8:13 PM Normal [facility] Coding Summaryon 06-20-2024 Coding Summary HTMLBase 64 SjpvinioEGm5uVq+PGh lYWQ+ZP7UEAWeP32pdR PivG8lK9KQSLlORbgrN LSHJDhOUcRamxQyLW2g aXNjZXJu IC8+AZ1dGNUxNzcbqOB jg5N4vJG4J43toj3vYN yixYZ4DAXqPqHnzdnyp 8fycXg1INdaTcugPlCi WPMlaJ98UKJ4iK32Pe5 3sVIbrPKow5rqgMg0Tk DeEWTeDPE1vKudLHmfo 3ZfEWJfD69orCAlh9E2 IGNvbGxhcHNlOyBlbXB 4gG5yUPnkxhvzl6tkmm lqFpu0dh67pJYed7Z3g DV4M5ShqvV9SQZivVOe AcjyaAUYuP7hdlfhg7n ccmkjIpZoPMQrSIo2VC g5NUFqgAtlBgIyXF88E DK3QMSoikLgJ7AtBVPy iBwtBsT1w6N6Il9MK1K PUwavA0OUQTUDTZawoH Q+LK13hp11F9FkKjmjB pq3DONtUHI4pZD6yZ2m LKCeKVqsz3I5vUX2F8Q vroAagz7sx4ydFPGwAH wjA42lgTSqc3F1PJSdf FK2PMKgtTgeIzBbqS13 Oyc+SAFqvRwva2RaHzf zk9dhh4zarCm7YkovFR JqnpUjaWyaIAQ8q1IgL e6cNMVgkQD0pZC5uH1p AvQgXhJ6HDcgW522AjG zkMYpRcokS43kX4IqnL A+LYPfWqi1PYWriSmrC N4iM9LgKTUqkhlkxJVi nUfdCA1rSNRsnxbmMBE lpO0iIAHvS1w7PpQkWi D7QSnmA7AwKHQfxtbiI o66oL4iNuHnDnZ0KYpf D9SzyyO5CHMftHTrZBm jNLR1R46nr5J6BLFtPE WmZRS0yRT4fR5goQdgq jogbGVmdDsgdmVydGlj UNsbATfdB350SNRcyCu nPkNvZGluZyBEYXRlOi AgMTAvMTcvMjAyNDwvd GQ+PGNfYMW7mWepLSVl tEWtXBbrNd0vvQkxlNn sGZ9fCHIyabenBBVozZ 1zRWBxnPHxxRfvKD1wZ EEptjdhw813MzHaODR0 JMGjaDUsI3KtlN6uSnJ vGRWtELKqJ7HfaIFyJQ jwA417KUeoVxV8HFThh tKhQ0FjCASdmQmzCyT3 x5B9Bb9He4QezncvO2H fwEVvBeVdFgdeBTa1O3 RkPjwvdHI+KL68MBHcR V56CSu4BXE0pAwiUIix OATiX5QoeD6jKnXmHZQ kZGRkOyc+PHRhYmxlIH dpZHRoPScxMDAlJyBzd TsyFD4aUo6xWFXnSBPv bPdwgZDlMvOmm4nzISQ iSEerKY8yaDlfT4ZsmH T7FLVkw3j4Il00J07iB 3JvdXA+SBRrjNU6hMC5 wS8gYbRxAmE1YOjfB90 7CfYnxIBwEhnth0hmi3 uqwRe5GrW4DDTdiiBwu HeqGBN1g7SuSu82K03f IHdpZHRoPSIxNSUiIHZ nlKpngh2ihG3zNg2+PG MsrOF2cNX7qT7tRrWdM qB9LKtcR605CnWxrFWa Vvoad1cnu7ekjWk7YbQ sZAZlzkOduXocOAM1i8 AtRq58Q9MryKxeh5YnZ al8go91eAUim8O5oSR6 Z0AmXQZucalebJAjkWo xQF1nIIXsllezLGLvcX 2gQEJsJ7r8LeXdBeP8X XlwS4WtseM7CXAxcWNw AWFlbVDIaE1tvyrkf5t smpltEbSjCBXwXJd0LI f4WUCfgOmlDcMkFFF0V eD5DFZ9vUCaiA6dpNlt qflbgI6iEjj+VRV5lAL bwQTSLA8hXiatgBG+PH XiSMS5zLmtKJsyOTUco S3rDHSkA2z9DbGgBsJ8 HMjiD6SyibA8PYHoiYB xOCPrkKJSaP7lcinec2 cjvlrgWlRgKWKfESe3J Tq1ZQJoiIqzJoAjGGS7 OwZ6UCC7kBJgsI1wbZu ijxtisR5iDch+QmlydG rgGOA2RAu6B2YpVgn0E NYyuZlhGS9qaJNnHVhe Tu1gpZsqzVghFF5yIMD nnznkn781SrIpl9erRM EjpRHiLQjvQQY7X03qy 9H6ENPpHDAjRHA7nCB9 nD9jxGklmofpsEFlfOc gdmVydGljYWwtYWxpZ2 66TXCasBdyHnIiTKh1V 4VuEir4OIBkqAeiZN7z eYDiSUjjEj8bhTckmYz iKE0nHTTdisvtp576Ps Fbx1gtHJEvjCKlCSwvU WA3N76mw5R0KXLhLPRx JOH8rON0zQ2gsSxshiq gbGVmdDsgdmVydGljYW fcEKdcL344ULVdlWryF dTdhVr6I7PrArv5KATb pPepZE3fwSRfMLpqAq3 rjXybgRavPJ5eAMMykr bfv977VjNpm9bkXTCmb PCqYAjsOUV7F18rm2O0 LKBvSZLyDFH0rKX3qV9 hbGlnbjogbGVmdDsgdm SyyVubCWwzGMlmA600Y HRvcDsnPlBhdGllbnQg NVklDUa4U3MsYzfdfGS +WW10OBHzTV53jPYwpD Bgx6yrnGw7AcTrCMTkW LI0cDntKArxa8TeRLKb P07fePNdg9A1CKFlzFj wvIYzSeCcxQV3fT9dUD chraeym3umfaxrRowjc 5pyqp25hQ61K56nGVdk ZHRoPSIzMCUiIHZhbGl aqj2haP2kDg3+PGNvbC B3pNO7hV0dSDTlTmJ9E MtmC841ZpWmpSMqXnob k0mtr9xkeHw1YiK4AMM opeOqdVrcEOT6t5ZoFz 59I39gVZipSVKxQGIrG YNbBVTzzKoeec6hlT1q Ii8+AQUzyPA2uKW4qI1 jYgCzSoB0PYcvV764Nc OzhIMxIpuwF37aT3Gbg XA+SYVbNzh7IOVcvHpk TT9dfXEyWGrlZs7yJDJ 2RpPlJzGqNPmtQ3ZcGP SumulydqewvSX9YVGrU ONgwB64Ni1dfXodAMUd nQOAtV6svhurh8yxhnl rUuGbDPGrDWm9GNy4LL YlqFibJqBmLMQ2HcA9K DY2sQSugN9hwTeymbez qO2pB6FmZKQcowzfCu0 1qJ8oWjUkVhW9YYeuUh c+NKQCDY1PZDHBHTBGZ XoaUj8HDToqgQW+PHRk FTR2xXbzVZzgMAJzoS0 iGFOaV8f9RqCpNkQ6LC oyD7JxZHXeklvxKo35l V1ePyHjWkA2UJtnY0Vq muA7TFEjaQPqPQtfQTY 3D14ib8I4HWFqRUMdAT A3fBH4hM1ngWpafuwwt GVmdDsgdmVydGljYWwt CCfuS982MZCojNhkMjX oJcG0FpF7Epp2G9TyGh z9WRRcmFepJD7aoFPdX AcdSi6rkKovwEkrTI2b YGBomsoyVANozX4rHSQ pqBAtkPtpJD8vDBOgol aha604UqVsCBB8WQYgd HDtJ9AluA5kEkGjNQKz GFUpL1IjaKRwQNhnQ12 5OYvgPkQ0IKHhgyMtK3 ZtLGNwzKkaSfC2o8J3I h05ANNSBOYzqhbhdLF+ FFSjCEH0dUudMGjyQDC qyD2yFNQzG4z4QwGiKt Y7OUufA8IoDRDsxcitI f20eL9rFpPbOeU9LHis L9CtviO4RLFvlHIfQWj fOWA9U34qh9A5YZOsJT FhBGT1cMW8fD7usIcnu jogbGVmdDsgdmVydGlj LYibCUxbH089HKJxqPm nPkZFTUFMRTwvdGQ+PH ZgTTZ9bXzpXMwiFVTju H7fBGCkM8m6VaSjCoY8 EYfoM0SqSPYkjkdfLo5 0iJ3eShLrAkR5XZrnR2 WuxgS9FNTmxCPvUHxfE JP8M79gt7D4CHHvMPNu VFM1nDA2zE0ryXwgexp gbGVmdDsgdmVydGljYW avFNpbC951ASBqkLwyN nOcmUMXrXZjXOL6RN42 TL53I7YxUltqyUHudWY +PHRhYmxlIHdpZHRoPS nzDCGaNjWtkZywQK6zY d4jJOZcHYYtiTkkyATz DxTxh0dtHLAjYYvyQT9 uxQucM3XieKP0FLQcv7 d2Kn80K14aD7UlpRV+P KOsqIL4aGP9vY0kQeRy AhH3NWcwC005SxJjbZN hXlcbj6vpq4tntRz1Kq PpVKBdzeEvmIxxAAN0q 6KqKe12K47mTNmrHHPj PSIyMCUiIHZhbGlnbj0 wrA2uVt8+AUTfwRL1sQ H3gG8vWnUkGgB1HQmtG 798IqEpiWDwLkxeF36s Z2KxoQK+TZNjEel2VJZ lkXyfZU4qpSZzKBtkBb 2uACG5DgNuZlOeLXqmV 8WsSJIncyavysbltBY3 HPIgOYBueJ60Wn2pxUi qRw5rSSKbKQV3VXApgK JmL6EwuK0mFvJkBBYpA PBoD9IrdDMwIFiuG568 YFihEmH8KWZgaoJvB3O qEVTmjXtvCaX7y9Y6Qi 9TlNrteNRdBU0zNnRzQ Aw9T4PjGeq5TYDsnEbf CF5edVJkBIgaYm2fkCz gmIlzIG0wNVTviobvj5 00QbQhi8grUEHdqVGeS KkzXET9B68bl8T1EKLd OZIrTEB3wUO7pG3qdPj nbjogbGVmdDsgdmVydG jrCUvnJBgfF409OQFwc OigJcQOFpv5C0AlXai5 DJPmeEqaZU1bhWNzTMs sGc7hhQuzmHutWX1sSO Ofvlcsm818IhVmu9hqF WIggFJuFFgeFPJ6O54a y9I8LUHdHIGgYCR6rMB 4uQ4ouTqiputddEOfsT sgdmVydGljYWwtYWxpZ 636RHDiqWolQj7CThi8 C2SsHln4NWTvsYaeXR5 axXRrKUkoPy4fwXpqnQ cbDM9pAPArxbodz301E eGys9kwSSPvuUTaSMdl DGF4I93fl7C9PBXqVTI yRXO5rND9hC3yjAkmos ogbGVmdDsgdmVydGljY NhpBDigH534RHWfdWmp PlBheWVyOjwvdGQ+PC9 4nx67A6BuAlfhCtb7JV QwRKZ2xTX3iN9yVEZuR Htky7Y7oHA7X0NkvcDq ci1 (more content not included)... [facility] Summary Primary Physician: Arianna Miller DO Finalized Date/Time: 06/20/24 08:21:54 Pt. Name: CARISSA LOZADA/Sex: 1980 FEMALE Med Rec #: [id number] Physician: Arianna Miller DO Financial #: [id number] Pt. Type: D Room/Bed: / Admit/Disch: 06/17/24 08:13:31 - 06/17/24 11:42:00 Institution: Case Times [facility] 1 Patient In Room Time 06/17/24 10:16:00 Out Room Time 06/17/24 10:43:00 Anesthesia Start Time 06/17/24 10:14:00 Stop Time 06/17/24 10:47:00 Surgery Start Time 06/17/24 10:29:00 Stop Time 06/17/24 10:39:00 Last Modified By: Jessica Ordonez RN 06/17/24 10:47:44 Case Attendance MAGR Entry 1 Entry 2 Entry 3 Case Attendee Arianna Miller Robert M MD Kokinda, Diane RN Andrew DO Role Performed Surgeon - Primary Anesthesiologist of [place] Floor Record Time In 06/17/24 10:22:00 06/17/24 10:16:00 06/17/24 10:16:00 Time Out 06/17/24 10:37:00 06/17/24 10:43:00 06/17/24 10:43:00 Procedure Carpal Tunnel Carpal Tunnel Carpal Tunnel Release(Right) Release(Right) Release(Right) Last Modified By: Jessica Ordonez RN, Diane RN Kokinda, Diane RN 06/17/24 10:47:37 06/17/24 10:47:37 06/17/24 10:47:37 Entry 4 Entry 5 Case Attendee Heaven Lianez ConiGerri fierro SECURITY SUPERVISOR SECURITY SUPERVISOR Role Performed Scrub Personnel Motor Adjuster Time In 06/17/24 10:16:00 06/17/24 10:16:00 Time Out 06/17/24 10:43:00 06/17/24 10:43:00 Procedure Carpal Tunnel Carpal Tunnel Release(Right) Release(Right) Last Modified By: Jessica Ordonez RN, Diane RN 06/17/24 10:47:37 06/17/24 10:47:37 Surgical Procedures MAGR Pre-Care Text: A.20 Verifies operative procedure, surgical site, and laterality Im.150 Develops individualized plan of care Entry 1 Procedure Carpal Tunnel Release Primary Procedure Yes Primary Surgeon Arianna Miller DO Surgeon Comment RIGHT CARPAL TUNNEL Start 06/17/24 10:29:00 RELEASE Stop 06/17/24 10:39:00 Anesthesia Type MAC Surgical Service Orthopedics Wound Class Clean Technique Details Closure Technique Primary Entire procedure No was performed via laparoscope or robotic assistance Last Modified By: Jessica Ordonez RN 06/17/24 10:47:40 Post-Care Text: O.730 The patient's care is consistent with the individualized perioperative plan of care General Case Data MAGR Pre-Care Text: A.350.1 Classifies surgical wound Entry 1 Case Information OR MAGR OR 01 Case Level Level 3 Wound Class Clean Specialty Orthopedics ASA Class 3 Diagnosis Preop Diagnosis RIGHT CARPAL TUNNEL Postop Same As Preop Yes SYNDROME Postop Diagnosis RIGHT CARPAL TUNNEL SYNDROME Blunt or No Is the procedure No penetrating injury considered occured prior to Emergent/Urgent? the start of the procedure: Last Modified By: Jessica Ordonez RN 06/20/24 08:21:50 Post-Care Text: O.760 Patient receives consistent and comparable care regardless of the setting Time Out MAGR Entry 1 Procedure(s) Carpal Tunnel Release(Right) Time Out Checklist Verifications Team Introductions Yes Confirmed Identity, Yes Completed Procedure, Incision Site, and Consent(s) Presence of Yes Site Verification, Yes Necessary Site Marking, Site Procedural Marking Equipment, Devices, Alternative, and/or and Implants Site Marking Verified Exception in Accordance with Facility Policy Anesthesia Review Antibiotic Received n/a All Anesthesia Yes Within an Concerns Addressed Appropriate Time Interval Prior to Surgical Incision Surgeon Review Anticipated Blood Yes Expected Case Yes Loss Risk Addressed Duration Addressed Critical and Yes Non-Routine Steps to be Performed Addressed Nurse Review Equipment Yes Fire Risk Yes Checks/Concerns Assessment Addressed Completed and Interventions Performed Diagnostic and n/a Sterilization n/a Radiological Test Concerns Addressed Results Displayed are Appropriate and Labeled Other Concerns n/a Addressed Time Out Jessica Ordonez RN, Time Out Time 06/17/24 10:28:00 Participants ConiGerri SECURITY SUPERVISOR, Jessica Ordonez RN Last Modified By: Jessica Ordonez RN 06/17/24 10:30:01 Patient Positioning MAGR Pre-Care Text: A.280 Identifies baseline musculoskeletal status Im.40 Positions the patient Im.80 Applies safety devices Entry 1 Procedure Carpal Tunnel Body Position Supine Release(Right) Left Arm Position Resting at Side Right Arm Position Extended on Hand Table Left Leg Position Extended Right Leg Position Extended Feet Uncrossed? Yes Press Points Checked Yes Positioning Device Pillow, Safety Strap Outcome Met (O.80) Yes Last Modified By: Jessica Ordonez RN 06/17/24 09:45:56 Post-Care Text: E.290 Evaluates musculoskeletal status O.80 Patient is free from signs and symptoms of injury related to positioning Skin Prep MAGR Pre-Care Text: A.30 Verifies allergies Im.2 (more content not included)... [facility] Consent Formson 06-18-2024 Consent Forms [id number] [facility] Discharge Instructions [id number] [facility] Outside Recordson 06-18-2024 Outside Records [id number] D3[facility]est[facility] 06-17-2024 Anesthesia Note Patient: CARISSA LOZADA Age: 43 years Sex: FEMALE : 1980 Associated Diagnoses: None Author: Olivier Lares MD Postoperative Information Post Operative Note: Operative Day. Anesthetic utilized: Monitored anesthesia care. Health Status Allergies: Allergic Reactions (All) Moderate Bactrim- Rash. Canceled/Inactive Reactions (All) No known allergies Problem list: All Problems Anxiety / SNOMED CT 31988634 / Confirmed Chronic hypoxic respiratory failure / SNOMED CT 8366222562 / Confirmed Depression / SNOMED CT 20972021 / Confirmed Developmental delay / SNOMED CT 259402080 / Confirmed Diabetes / SNOMED CT 087516044 / Confirmed GERD (gastroesophageal reflux disease) / SNOMED CT 680489557 / Confirmed High blood cholesterol / SNOMED CT 04236990 / Confirmed HTN (hypertension) / SNOMED CT 6654233033 / Confirmed Irritable bowel syndrome (IBS) / SNOMED CT 08779430 / Confirmed Pulmonary nodule / SNOMED CT 7858271328 / Confirmed Obesity / SNOMED CT 1074795827 / Confirmed Physical Examination Vital Signs (last 24 hrs) Last Charted Temp Temporal L 36 DegC (JUN 17 08:40) Heart Rate Monitored 79 bpm (JUN 17 10:40) Resp Rate 1 br/min (JUN 17 10:45) SBP 96 mmHg (JUN 17 10:39) DBP 57 mmHg (JUN 17 10:39) Review / Management Condition: Stable. Assessment Anesthetic outcome No anesthetic complications noted. Adequate pain relief. awake, answers questions, no pain, VSS, adequate hydration, Glucose=69. No Complaint of nausea and vomiting. Plan Transfer/ Discharge: Patient can be discharged from PACU when criteria met. Condition good. [Electronically Signed on: 06/17/2024 10:48 EDT] __ Olivier Lares MD [Verified on: 06/17/2024 10:48 EDT] __ Olivier Lares MD [facility] Anesthesia Note Patient: CARISSA LOZADA Age: 43 years Sex: FEMALE : 1980 Associated Diagnoses: None Author: Olivier Lares MD Preoperative Information Anesthesia history: Patient history: No difficult intubation, No malignant hyperthermia. Family history: No malignant hyperthermia. Review of Systems Constitutional: Negative. Respiratory: Negative, No shortness of breath. Cardiovascular: No chest pain. Neurologic: Alert and oriented X4. Health Status Allergies: Allergic Reactions (All) Moderate Bactrim- Rash. Canceled/Inactive Reactions (All) No known allergies Current medications: Home Medications (22) Active Albuterol (Eqv-ProAir HFA) 90 mcg/inh inhalation aerosol 2 puff(s), PRN, Inhale, q4hr atorvastatin 40 mg oral tablet 40 mg = 1 tab(s), Oral, Daily buPROPion 300 mg/24 hours (XL) oral tablet, extended release 300 mg = 1 tab(s), Oral, Daily citalopram 20 mg oral tablet 20 mg = 1 tab(s), Oral, Daily dicyclomine 20 mg oral tablet 20 mg = 1 tab(s), Oral, Daily FREESTYLE CRYSTAL SENSOR 14D Insulin Aspart FlexPen 100 units/mL injectable solution lamoTRIgine 200 mg oral tablet, extended release 200 mg = 1 tab(s), Oral, Daily Lantus 100 units/mL subcutaneous solution 15 unit(s), Subcutaneous, BID lisinopril 2.5 mg oral tablet 2.5 mg = 1 tab(s), Oral, Daily LORazepam 1 mg oral tablet 1 mg = 1 tab(s), PRN, Oral, TID Mounjaro 2.5 mg/0.5 mL subcutaneous solution 2.5 mg = 0.5 mL, Subcutaneous, qMonday nabumetone 500 mg oral tablet 1,000 mg = 2 tab(s), Oral, BID oxybutynin 15 mg/24 hr oral tablet, extended release 15 mg = 1 tab(s), Oral, Daily oxygen 3 lpm(s), PRN pantoprazole 40 mg oral delayed release tablet 40 mg = 1 tab(s), Oral, Daily pioglitazone 45 mg oral tablet 45 mg = 1 tab(s), Oral, Daily prazosin 2 mg oral capsule 1 tab(s), Oral, Daily sertraline 100 mg oral tablet 100 mg = 1 tab(s), Oral, Daily SUMAtriptan 25 mg oral tablet 25 mg = 1 tab(s), PRN, Oral, Daily Trelegy Ellipta 200 mcg-62.5 mcg-25 mcg/inh inhalation powder 1 puff(s), Inhale, Daily Vitamin D3 2000 intl units oral tablet 50 mcg = 1 tab(s), Oral, Daily Problem list: All Problems Anxiety / SNOMED CT 44850338 / Confirmed Chronic hypoxic respiratory failure / SNOMED CT 4142318571 / Confirmed Depression / SNOMED CT 99147884 / Confirmed Developmental delay / SNOMED CT 891426301 / Confirmed Diabetes / SNOMED CT 678227572 / Confirmed GERD (gastroesophageal reflux disease) / SNOMED CT 419690207 / Confirmed High blood cholesterol / SNOMED CT 15909904 / Confirmed HTN (hypertension) / SNOMED CT 8617546963 / Confirmed Irritable bowel syndrome (IBS) / SNOMED CT 70221988 / Confirmed Pulmonary nodule / SNOMED CT 6541591255 / Confirmed Obesity / SNOMED CT 3471242400 / Confirmed Histories Family History: Heart attack Mother COPD (chronic obstructive pulmonary disease) Mother Procedure history: Carpal tunnel ([id number]) on 09/25/2023 at 43 Years. Comments: 09/25/2023 8:27 EST - FransiscorJennyfer RN left TL - Tubal ligation ([id number]) on 03/31/2023 at 42 Years. Genital warts (764682350). Cholecystectomy (63692909). Decompression of ulnar nerve (676605109). Comments: 04/16/2024 10:03 EDT - Fady ERICKSON, Kevin Guerra left side Social History Electronic Cigarette/Vaping Assessment Electronic Cigarette Use: Never. Alcohol Assessment Use: Never. Tobacco Assessment Never tobacco user Tobacco Use:. Substance Abuse Assessment Substance use: Never. . Social & Psychosocial Habits Alcohol 04/16/2024 Alcohol Use: Never Substance Use 04/16/2024 Substance use: Never Tobacco 04/16/2024 Smoking tobacco use: Never tobacco user Electronic Cigarette/Vaping 04/16/2024 Electronic Cigarette Use: Never . Physical Examination Vital Signs (last 24 hrs) Last Charted Temp Temporal L 36 DegC (JUN 17 08:40) Heart Rate Peripheral 89 bpm (JUN 17 08:40) Resp Rate 18 br/min (JUN 17 08:40) SBP H 148 mmHg (JUN 17 08:49) DBP H 102 mmHg (JUN 17 08:49) Airway: Mallampati classification: II (soft palate, fauces, uvula visible). Temporomandibular joint mobility: Good. Mouth: Adequate opening, Dentures ( Upper and lower dentures ). Neck: Full range of motion. Respiratory: Lungs are clear to auscultation, Respirations are non-labored, Breath sounds are equal. Cardiovascular: Normal rate, Regular rhythm, No murmur. Neurologic: Alert, Oriented. Review / Management Laboratory Results Plan [place] [employer]esthesiologists (ASA) physical status classification: Class III. Anesthetic Preoperative Plan Anesthesia: Monitored anesthesia care. Anesthetic plan, risks, benefits, and alternatives discussed with the patient and/or family. Patient verbalized understanding. Informed consent was given. Consent was signed by the patient. [Electronically Signed on: 06/17/2024 10:14 EDT] __ Olivier Lares MD [Verified on: 10 (more content not included)... Normal [facility] Inpatient Patient Summaryon 06-17-2024 Inpatient Patient Summary [place] [id number] Patient Discharge Instructions Name: CARISSA LOZADA : 1980 Patient Address: [address] [place] [id number] Primary Care Provider: Name: DIAZ BETTS After you are discharged if you find you have any questions, please, call [phone] ext [phone] to speak to a nurse. Discharge Diagnosis: Carpal tunnel syndrome, right Prescription Information: If you have been given a prescription for narcotics, seek immediate medical attention if you have any difficulty breathing or any sudden status changes such as confusion and sleepiness. If you or anyone you know is experiencing suicidal thoughts, mental health, alcohol and/or drug addiction problems; contact the [facility] 27/03 Crisis Hotline -text 4HOPE to 825034. If you received any narcotics, sedation, or [...] business decisions or sign any legal documents [facility] would like to thank you for allowing us to assist you with your healthcare needs. The following includes patient education materials and information regarding your injury/illness. CARISSA LOZADA has been given the following list of follow-up instructions, prescriptions, and patient education materials: Follow-up Instructions With: Address: When: Barry Snowden [address] [place] [address] Business (1) 06/24/2024 10:15 AM Medications During the course of your visit, your medication list was updated with the most current information. The details of those changes are reflected below: Medications to Continue That Have Not Changed Other Medications albuterol (Albuterol (Eqv-ProAir HFA) 90 mcg/inh inhalation aerosol) 2 puff(s) Inhale (breathe in) every 4 hours. as needed wheezing. atorvastatin (atorvastatin 40 mg oral tablet) 1 tab(s) Oral (given by mouth) every day. buPROPion (buPROPion 300 mg/24 hours (XL) oral tablet, extended release) 1 tab(s) Oral (given by mouth) every day. cholecalciferol (Vitamin D3 2000 intl units oral tablet) 1 tab(s) Oral (given by mouth) every day. citalopram (citalopram 20 mg oral tablet) 1 tab(s) Oral (given by mouth) every day. dicyclomine (dicyclomine 20 mg oral tablet) 1 tab(s) Oral (given by mouth) every day. Durable Medical Equipment for Prescription (ODECE SENSOR 14D) APPLY 1 SENSOR TO BACK OF UPPER ARM. REMOVE AND REPLACE EVERY 14 DAYS. fluticasone/umeclid inium/vilanterol (Trelegy Ellipta 200 mcg-62.5 mcg-25 mcg/inh inhalation powder) 1 puff(s) Inhale (breathe in) every day. insulin aspart (Insulin Aspart FlexPen 100 units/mL injectable solution) INJECT SUBCUTANEOUSLY 3 TIMES DAILY IN THE MORNING, NOON, AND IN THE EVENING WITH MEALS PER SLIDING SCALE *30-40 UNITS DAILY*. insulin glargine (Lantus 100 units/mL subcutaneous solution) 15 unit(s) Subcutaneous (under the skin) 2 times per day. lamoTRIgine (lamoTRIgine 200 mg oral tablet, extended release) 1 tab(s) Oral (given by mouth) every day. lisinopril (lisinopril 2.5 mg oral tablet) 1 tab(s) Oral (given by mouth) every day. LORazepam (LORazepam 1 mg oral tablet) 1 tab(s) Oral (given by mouth) 3 times per day as needed for anxiety. nabumetone (nabumetone 500 mg oral tablet) 2 tab(s) Oral (given by mouth) 2 times per day. oxyBUTYnin (oxybutynin 15 mg/24 hr oral tablet, extended release) 1 tab(s) Oral (given by mouth) every day. oxygen 3 lpm(s) as needed shortness of breath or wheezing. pantoprazole (pantoprazole 40 mg oral delayed release tablet) 1 tab(s) Oral (given by mouth) every day. pioglitazone (pioglitazone 45 mg oral tablet) 1 tab(s) Oral (given by mouth) every day. prazosin (prazosin 2 mg oral capsule) 1 tab(s) Oral (given by mouth) every day. sertraline (sertraline 100 mg oral tablet) 1 tab(s) Oral (given by mouth) every day. SUMAtriptan (SUMAtriptan 25 mg oral tablet) 1 tab(s) Oral (given by mouth) every day as needed for migraine headache. may repeat dose after 2 hours up to a maximum of 200 mg in 24 hours. tirzepatide (Mounjaro 2.5 mg/0.5 mL subcutaneous solution) 0.5 Milliliter Subcutaneous (under the skin) Every Monday. It is important to always keep an active list of medications available so that you can share with other providers and manage your medications appropriately. As an additional courtesy, we are also providing you with your final active medications list that you can keep with you. albuterol (Albuterol (Eqv-ProAir HFA) 90 mcg/inh inhalation aerosol) 2 puff(s) Inhale (breathe in) every 4 hours. as needed wheezing. atorvastatin (atorvastatin 40 mg oral (more content not included)... [facility] Pre-Op Record Summary Primary Physician: Arianna Miller DO Finalized Date/Time: 06/17/24 13:04:23 Pt. Name: CARISSA LOZADA/Sex: 1980 FEMALE Med Rec #: [id number] Physician: Arianna Miller DO Financial #: [id number] Pt. Type: D Room/Bed: / Admit/Disch: 06/17/24 08:13:31 - Institution: Pre-Op Case Times MAGR Pre-Care Text: Patient will be optimally prepared for surgery. Patient is free from s/s of injury. Provide information to patient/family related to plan of care. Verify patient allergies. Confirm identity and verify consent before the operative or invasive procedure. Entry 1 Patient Arrival Time 06/17/24 08:30:00 Preop Departure 06/17/24 10:14:00 Last Modified By: Jennyfer Gresham RN 06/17/24 13:04:18 Post-Care Text: Patient is prepared mentally and physically and is ready for surgery. The patient remains free from s/s of injury. Patient/family express understanding of plan of care and participate in decisions affecting his or her perioperrative plan of care. Allergies documented appropriately. Patient identifiers and consent correct. General Comments: Reviewed for the next 24 hours not to do anything that requires concentration. Denies chest pain, shortness of breath or illnessess. Deneis pacemaker. States sleep apnea, does not use machine. Finalized By: Jennyfer Gresham RN Document Signatures Signed By: Jennyfer Gresham RN 06/17/24 13:04 Normal [facility] POCT Glucose Levelon 024 Glucose [Mass/Vol] 43 mg/dL Critically abnormal 74-118 [facility] Comment on above: Result Comment: OPR_ ID=[email or web address],TGC FLAG = False,Meter:[id number] Resident Care Manager:2005 Domenica Dangelo Performed By: #### [id number] ####[facility] (DEFAULT)[address] [place] [address] Patient Handouton 06-17-[address] MILLER'S POST OPERATIVE CARPAL TUNNEL INSTRUCTIONS: SURGEON'S WRITTEN INSTRUCTIONS: 1. Keep your hand elevated above your elbow for the first 24 hours after surgery. 2. Wiggle your fingers frequently while awake. 3. DO NOT lift heavy objects or special education inclusion teacher forcefully with your hand. 4. Change your [...] or concerns, please call the office at [phone]. 7. Follow up as scheduled. [facility] Progress Note - Nurseon 06-04 Progress Note - Nurse Pre-op call made- pt given arrival time of 0800 on 06-17-2024. 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 [Electronically Signed on: 06/14/2024 10:52 EDT] __ Margaret Cuellar RN [Verified on: 06/14/2024 10:52 EDT] __ Margaret Cuellar RN Dr Abrams concerned whether pt has hold her Mounjaro medication for a week- pt recalled and pt stated that last dose of her Mounjaro was on 06-03-2024. [Electronically Signed on: 06/14/2024 11:05 EDT] __ Margaret Cuellar RN [facility] Progress Note - Nurseon 05-06 Progress Note - Nurse Dr Flores reviews p t clearance and states that a new PAT is not necessary. [Electronically Signed on: 05/31/2024 11:43 EDT] __ Kalyani Ortiz RN [Verified on: 05/31/2024 11:43 EDT] __ Kalyani Ortiz RN [facility] HGB A1C (GLYCO-HGB)on 2023 Glucose [Mass/Vol] 324 mg/dL [facility] Comment on above: Performed By: #### H A1C ####[facility] ([id number])[address] [place] [address], [address] [place] [address] HbA1c (Bld) [Mass fraction] 12.9 % High 4.4-5.6 [facility] Comment on above: Result Comment: NOTE ADA Guidelines Result HgbA1c Normal : less than 5.7 % Prediabetes : 5.7 % to 6.4 % Diabetes : > 6.4 % Use with caution in patients with abnormal hemoglobin variants as the half-life of red blood cells and in vivo glycation rates are affected. Performed By: #### H A1C ####[facility] ([id number])[address], [address] [place] [address] XR KNEE RT 3 VWSon 4 XR KNEE RT 3 VWS XR KNEE RT 3 VWS CLINICAL INFORMATION: pain, fall TECHNIQUE: XR KNEE RT 3 VWS 3 views right knee were obtained. There is no acute osseous abnormality. No fractures seen. No malalignment. IMPRESSION: No acute findings. 6 Finalized by Dustin Hernandez MD on 05/16/2024 10:29 AM Normal [facility] Coding Summaryon 04-30-2024 Coding Summary HTMLBase 64 BkksbgkjLHk7zSj+PGh lYWQ+BZ6LKNTzH81klE IglC4hL3ZTRSbRKsagE SMPHEgAQzEitgVsCO7t aXNjZXJu IC8+NM0tSGOdSofluHA cy8X3qLB3T27lpe6yUR djhSN6YCMrTkYnlqbrz 5qzfFh2YZbcPsvbQxOb GKHgfQ29PYD1sU18Qr0 4yJRulDVqt7cmfSe8Sg DyIPLkSVE5wCwiPZclc 6QdCKOnT71vdHUfv2S1 IGNvbGxhcHNlOyBlbXB 3nJ1xFJqelzizy8zeog ahZoj7fk96vEHyn7Y9f RK7C2LtmhR3ICYdnNQn PyfujOYQuF8rdmyrb8w gfdvmKrYvRMNyYKz1IY j1DBXdhKxjWzBhME36W OU1YJMhbuTrM0KoXCLd pCzjIkG9m8R7Hn0PC5Q JCtliJ7IDTROGNCqrrE Q+IU02yl45Q8IhTltmL nt9FIUaUPI2hUM3sX6o CTWfQWwov5D6rQJ0G6X vreCkcy1mm0mjUHKqMQ fxO32mlLDpq3K5KWCdr YV0MMSsvAgjGjYfhS41 Oyc+UZEszMfqf8JvBsw wb0igo4bpwJt0NvfdRM InaqMioOaaCMT4l6LcT w5rLGSsvTY6hVO9sK7k SxRuKkB7YOihH286JzO pdVYnInswS64vG0NyoW A+ESDdJyc4MNIiaInrL N1yV3QaEMRzqogznEOh jYwbTI5jJKLedwjgULQ qcK2dYXBbK5t9UmVgVk P5UYaaY7EiETQbygfcT u25qL2oZqRuBcU3YAbo M9MjecR9TYYsoFQeXCa kGCW5P18yj6Y8SVQnQZ QbFFL0kDX7pT9rwPeps jogbGVmdDsgdmVydGlj ITclBGzgO033GLDcoPe nPkNvZGluZyBEYXRlOi AgMDgvMjcvMjAyNDwvd GQ+FPFzONA8wSelOMSn xSSbQZyuRn4ioXpokJo fDX3nOAQizouiWXKbjQ 3bZROhdRPvdCxhNT9gC XPigjlos457LiMvMMT9 OSZgpMIgC3UxzA5cAuC zVLPoJTYvA4DhrNNfFK zjZ139RFihPpI9XFBon gNwW4IaZSEyqEufDcY2 j5F7Eb1Jg9RujoonA2X ldQTvAsIxApbtHJf2R2 RkPjwvdHI+AC25ABTcT O60OYo7BIU3kGloQXcx QRMyO3QylX0aZaRmFMR kZGRkOyc+PHRhYmxlIH dpZHRoPScxMDAlJyBzd AwbQI5lCh7uSETrWHHf qYiifCFuMbEos0rpKNT jRBkrKZ7kaWzmL8ActL R1DMRot3m3Mw88B99gT 3JvdXA+RRGmuFV1pUY2 mO1gPpFtJiA1KEezM05 4ZnXfpJKeTcwmv7jeq5 gvhAa3TyD1EAAyptHfb FsfFLU9z2VdZv97G94l IHdpZHRoPSIxNSUiIHZ vqBgvdj7pzX3aOx0+PG JodXN5kLK8fA6fPnVyM mY7ARmdL888ZoOvrRKp Kaflf7sgl4iagDj6ZjJ iDXRdoqIthWnpXDS7a3 HrFi98Z7PzzSyqi2RgY jd2cw05vZWgt0Y2hNO0 W9YrHMAxkevbjPYmvXz rDR6sAUHrmtveDUDplV 1zDIDpJ7g2PtNoAiE0P YhbG0GauzK6WKRqtMJu YXSmsUOZbG1qmsnni9s apoulBpSyLIUnEIp3PA b4YAJvzTcgUrAbNFI4U jE1CKN7zORliD5beGpa zadciW1iPjb+JZX6tMJ apPSSSX6bKiufvKB+PH FpCEI7jVmzKUtxGXBeh S5lVGSgB0s8ShYgAcH9 DOxqE8NhwqX7UUWxkKB hSSJnaAHKqN1gulduz4 gdrjehCjDkVKTwDHe4E Vs4BULmxOvcGaTrXBX3 McZ6CRP3uQFowN9jiNu kdduthU1rNjx+QmlydG umNYJ2RUm2E9NiFrb0M MCuzFpkZB0qrRZlEJeo Dm6rcKkhkBrzEE4eNUF izucht597XwVkv8ucQR DqpJTzMGxyIFG9T77zo 3W6PUQhCPDpWYE8zCT0 xK3fdNvcjshmfDCvwPw gdmVydGljYWwtYWxpZ2 93ZOZwwWrqAsRaISv5M 9HqOoc0HWCeeSwjSL7g sYTdAYzmXr2zqVmfcUj zCU0gFXPjytgtn349Nc Kra7riVXQskHIgEJdsN NG5D48wp6A4XUGgXZFd GTT8xQG2kY5haUofonv gbGVmdDsgdmVydGljYW paHOrmE722VDKhcWzwN cZjpKq1H0IqRce4CRZe sQdyJQ5qyORdJJegWt0 qwNfkfOojKJ5yXHZsvq tri693SmJkw7yzXQCmk HIrWSgxDKW7A55uf4E7 JPMeLSZlKVS4mIJ3cD8 hbGlnbjogbGVmdDsgdm MpiPhrUZtfKQcgV474P HRvcDsnPlBhdGllbnQg KUsuERn1V6GoMjztxVC +SI96XUXnWA02cPHrkX Pky3tadOu2AqEcDBRkK YG6uDbwOKqhh1NoDFNf N63ikGEss6W4JARkzIz efRNmHeVtwGK7pJ5bQD etktoit1jcljbxTfecv 6bssl50xC69N32bHDjp ZHRoPSIzMCUiIHZhbGl pfm9szI6pYe8+PGNvbC L8dZW2pC0sBHXsIwG1T BadT679JcXpwVKtWetq u5pwb2pxsJv1SzI0FDX rskWxrTyyYRV4q1XmFr 60Y75kOFmrMWMfWJAmA MIaVEQrsBrrru3pqA2h Ii8+GGXflBR1vWM5pB0 aPoEtAdG8UWieT232Ln LywNEuBllpP87aE6Kdd XA+IEIoKlm6YSScdVbu CX7akLKpPAdxUh5vBXB 2AaEaJlZjAGbtM9CdJE LvsxtjdxvirDD3JPZeE HZmxS77Py9jxFbvRTEp eJIMiH7fxnpch6msyhs jVbDyYPNbTOw7BAf5EA ObbZcwNdXuBKJ4ZtP2U XV4oITquQ1ggRoevtxm cO2lG7NiKQGgqwxcGe8 6pW3cVlXpQiN7BZcjRh c+VYAPJK2XHXZUSOAUO ChjLa8YHPxfuQG+PHRk CRG4gEefTTbhWDNfiU1 jQZUgC9m7VaFtHcZ5SR gxS0XlTNPklxvmJo41n Y4iWiWrKvD7TZavH6Ul fdB8CPCvvCGyHNonMNO 9T55yu1O0IHZgDYAcRJ X1jAS3fD0vjVoqequvg GVmdDsgdmVydGljYWwt VVcoY908PGGupGroYsF qKkE4NbB0Vpo5X7QbFb l0JVNixBnbIZ8zhPMqV IqxYu8kqEyulJviVN8u MZTxozdgPEQydM9mHYY fkEQigDjkDX3xPUJfzi vvc160NcLxOCB9AFEvq UNiR6EovY5rVzNmVBGo XCBrX6QmzSAxXHvhM50 9WHpqGxR1IOFwkdPrP0 VdPGXdkKviZsK5s8V9B b65KESDLDLzcqecxDM+ SQZtEYL2xCypWAwmIMY ngS7jYXQgV8g8RbFfWx R5UPbwU8JhLRRcaspnX y21gX3hEvIoKeC1QMkt O7VowbN9NUOunBVvHXa aYVH2L39fa1I5FXTnHO QpLVH6uBJ1fZ0liVlet jogbGVmdDsgdmVydGlj WXcjIOaiD517NYGlgYg nPkZFTUFMRTwvdGQ+PH JhIYX8vTlsRXubACVyb F3mJEQsC7q9UgAsCmJ5 TBhfL4LoUAAmdftaFg8 1uO9pMcWwYmP0CAsmF9 GrpfP4KWBsnDNqDMxeY OK5X34kp7F5VHQgUWRe JGF1aXY7bE2duUeyrcj gbGVmdDsgdmVydGljYW ftECljO909EUPgvNpeT g6HFM72MN39I8EgRzgj dGFibGU+PHRhYmxlIHd pZHRoPScxMDAlJyBzdH dwSB7iVo8qXURfIWBtz NlpdMGoNfZcc8fuJYMo GMpcPQ0ipGgeA3FjlDC 1RHFaq1j2Xe13Z06gG9 JvdXA+MSXijRH1nGL8p Z1wMzNtTaU9CQlcH751 GyVugUNsUagzq5rqd7l keGf7XeCqXMNlxfSwiK imXCZ1t2UzYb37H07dY HdpZHRoPSIyMCUiIHZh hKrpre9xbJ8rIv0+PGN xjJC5qPM3dY8qKyTnCx R8YYqkG332UxRkyTMfN hsjS90cK3TqdNH+PHRy Ijp6FVCsrOswOW5lpVI bWGbfAl0rATP0EmJlLy VeYExzV2DrXYFufbsmj qxfvNJ2CEZaCGJooZ51 Mn5qlQwjHy0aQMXlVCH 6JMNeqRVkE6OoaE4dTc StIOMgACGaI8AafNCoK LitA412MWguAbQ9HDGk nuXvE1IeXUZxyGlsWaW 9r9O0Wf6VoZwhdLTgVP 2iGmEnHVu4H7MfByo6T FPydIvtNO5uoGTrZFjc Le5bqDqzzClwKP9aDDF nsdrpm154GeBxp1neJW SanOSwRSymCTY5H42ow 8K6WZQeXBVkAJL2eFK6 bF3flBahticxdBEztFa gdmVydGljYWwtYWxpZ2 53DHQbsJswBpMDQat4L 6WoObl1SZLpmTymYQ7e eZQkFXebVj9fgUgjbKx kKE7fGIOewaqpn891Ar Cbe8reSUQfeVTxGXpgZ MX3B71du3Y9LGKpQSAt ZKZ5oMO3oK1ieJbwxgy gbGVmdDsgdmVydGljYW yqWLpmB996ZNUklFxiU n9KZdp0E4EzAjr7MVIe wHvfDN2hhFGhVUymGk6 kgFmvjLfjMU4zGXZrht hww631UoRgm5hpIDDwc MVaSAmcQID4A51ef7O6 SROwOUVaGNE0pCF2gZ5 hbGlnbjogbGVmdDsgdm RfpKypPCuqSSowS292Y HRvcDsnPlBheWVyOjwv dGQ+PM67sb55E6ZdKng xJxv2MBTxRQW8fBS1dB 4iMPDlVTokm1H8cWB6X 4IxedLjec4rn2uqKEQp ZTo (more content not included)... Normal [facility] CT CHEST W CONTon 04-24-2024 CT CHEST W CONT CT CHEST W CONT CT of the chest with contrast dated 04/23/2024 at 8:28 AM INDICATION: Abnormal x-ray, adenopathy, mediastinal lymphadenopathy, lung nodule. . PROCEDURE: Automatic radiation exposure lowering techniques were utilized. All CT scans at this facility use dose modulation, iterative reconstruction, and/or weight based dosing when appropriate to reduce radiation dose to as low as reasonably achievable.. Following the intravenous injection of 70 mL of Omnipaque 300, a CT of the chest and sagittal and coronal reformats obtained. FINDINGS: Comparison is CT dated 09/26/2021. Paratracheal lymph node measuring 1.2 cm not significantly changed. No other enlarged lymph nodes seen in the axilla or mediastinum. There is a right middle lobe nodule measuring 1.4 cm, not significant free change. 3 mm nodule in the left lower lobe on axial slice #72. No airspace disease. No pleural effusion. There is mild pericardial thickening or tiny effusion. IMPRESSION: 1. Stable 1.4 cm right middle lobe nodule. 2. Stable 1.2 cm paratracheal lymph node. 0 Finalized by Jose Connors MD on 04/24/2024 8:48 PM Normal [facility] CREATININEon 04-22-2024 Creatinine [Mass/Vol] 0.78 mg/dL Normal 0.40-1.00 [facility] Comment on above: Result Comment: METH OD TRACEABLE TO IDMS STANDARD Performed By: #### C RT ####[facility] ([id number])[address] [place] [address]481 eGFR (CKD-EPI) NON-RACE DEPENDENT >90 Normal >59 [facility] Comment on above: Result Comment: Reported eGFR is based on the CKD-EPI 2020 equation that does not use a race coefficient. Performed By: #### C RT ####[facility] ([id number])[facility]0 [facility], [address] [address] Progress Note - Nurseon 04-04 Progress Note - Nurse [employer] spoke with Adriane at Dr. Jones office and informed her that per Dr. Barrett pt will need an echo to evaluate for pulmonary HTN before her surgery. Adriane verbalizes understanding. [Electronically Signed on: 04/18/2024 15:41 EDT] __ Jennyfer Gresham RN [Verified on: 04/18/2024 15:41 EDT] __ Jennyfer Gresham RN [facility] Progress Note - Nurse Dr Barrett reviewed PAT information. Per Dr. Barrett pt needs echo as recommended by pulmonology to evaluate for Pulmonary HTN. Waiting to hear back from Dr. Jones office to inform them of need for echo. [Electronically Signed on: 04/18/2024 15:20 EDT] __ Jennyfer Gresham RN [Verified on: 04/18/2024 15:20 EDT] __ Jennyfer Gresham RN [facility] .Auto Diff 1on 04-16-[address] [facility] % 6 % Normal 1-12 [facility] Comment on above: Performed By: #### 1 [id number], [id number], [id number] ####[facility] (DEFAULT)[address] [place] [address] Baso Abs# 0.0 x10 Normal 0.0-0.2 [facility] Comment on above: Performed By: #### 1 [id number], [id number], [id number] ####[facility] (DEFAULT)[address] [place] [address] 39870 Basophils/100 WBC (Bld) 0.5 % Normal 0.2-2.0 [facility] Comment on above: Performed By: #### 1 [id number], [id number], [id number] ####[facility] (DEFAULT)[address] [place] [address] 29204 Eos Abs# 0.1 x10 Normal 0.0-0.4 [facility] Comment on above: Performed By: #### 1 [id number], [id number], [id number] ####[facility] (DEFAULT)[address] [place] [address] Eosinophils/100 WBC (Bld) 1.4 % Normal 0.9-4.0 [facility] Comment on above: Performed By: #### 1 [id number], [id number], 6356677 ####[facility] (DEFAULT)[address] [place] [address] 36479 Lymph Abs# 1.9 x10 Normal 1.3-2.9 [facility] Comment on above: Performed By: #### 1 [id number], [id number], [id number] ####[facility] (DEFAULT)[address] [place] [address] 48447 Lymphocytes/100 WBC (Bld) 37 % Normal 14-48 [facility] Comment on above: Performed By: #### 1 [id number], [id number], [id number] ####[facility] (DEFAULT)[address] [place] [address] [facility] Abs# 0.3 x10 Normal 0.0-0.8 [facility] Comment on above: Performed By: #### 1 [id number], [id number], [id number] ####[facility] (DEFAULT)[address] [place] [address] 28545 Neut Abs# 2.8 x10 Normal 1.5-9.2 [facility] Comment on above: Performed By: #### 1 [id number], [id number], 6303803 ####[facility] (DEFAULT)[address] [place] [address] 15264 Neutrophils/100 WBC (Bld) 55 % Normal 44-88 [facility] Comment on above: Performed By: #### 1 [id number], [id number], [id number] ####[facility] (DEFAULT)[address] [place] [address] 51698 BMP Standardon 04-16-2024 eGFR Non AA >60 Invalid Interpretation Code [facility] Comment on above: Performed By: #### 1 [id number], [id number], [id number] ####[facility] (DEFAULT)[address] [place] [address] 23056 eGFR AA >60 Invalid Interpretation Code [facility] Comment on above: Performed By: #### 1 [id number], [id number], [id number] ####[facility] (DEFAULT)[address] [place] [address] 97905 Anion gap [Moles/Vol] 11.4 mmol/L Normal 5.0-19.0 [facility] Comment on above: Performed By: #### 1 [id number], [id number], 3273633 ####[facility] (DEFAULT)[address] [place] [address] 26629 Calcium [Mass/Vol] 8.7 mg/dL Low 8.9-10.3 [facility] Comment on above: Performed By: #### 1 [id number], [id number], 2132188 ####[facility] (DEFAULT)[address] [place] [address] 03071 Chloride [Moles/Vol] 100 mmol/L Low 101-111 [facility] Comment on above: Performed By: #### 1 [id number], [id number], 6328690 ####[facility] (DEFAULT)[address] [place] [address] 71239 CO2 [Moles/Vol] 27 mmol/L Normal 21-32 [facility] Comment on above: Performed By: #### 1 [id number], [id number], 6527459 ####[facility] (DEFAULT)[address] [place] [address] 70639 Creatinine [Mass/Vol] 0.73 mg/dL Normal 0.60-1.30 [facility] Comment on above: Performed By: #### 1 [id number], [id number], 4279029 ####[facility] (DEFAULT)[address] [place] [address] 73689 Glucose [Mass/Vol] 249.0 mg/dL High 74.0-118.0 [facility] Comment on above: Performed By: #### 1 [id number], [id number], 8811090 ####[facility] (DEFAULT)[address] [place] [address] 93105 Osmolality 279 mOsm/L Invalid Interpretation Code [facility] Comment on above: Performed By: #### 1 [id number], [id number], 8355808 ####[facility] (DEFAULT)[address] [place] [address] 40954 Potassium [Moles/Vol] 4.4 mmol/L Normal 3.6-5.1 [facility] Comment on above: Performed By: #### 1 8689983, [id number], 3438362 ####[facility] (DEFAULT)[address] [place] [address] 59890 Sodium [Moles/Vol] 134.0 mmol/L Low 136.0-144.0 [facility] Comment on above: Performed By: #### 1 3903382, [id number], 7685148 ####[facility] (DEFAULT)[address] [place] [address] 39745 Urea nitrogen [Mass/Vol] 20 mg/dL Normal 8-26 [facility] Comment on above: Performed By: #### 1 9881689, [id number], 1809304 ####[facility] (DEFAULT)[address] [place] [address] 61446 Urea nitrogen/Creatinine [Mass ratio] 27.3 mg/mg High 4.6-16.2 [facility] Comment on above: Performed By: #### 1 [id number], [id number], 3258521 ####[facility] (DEFAULT)[address] [place] [address] 22927 CBC w/ Auto Diffon 4 Erythrocyte distribution width (RBC) [Ratio] 13.9 % Normal 11.5-15.0 [facility] Comment on above: Performed By: #### 1 [id number], [id number], 2365604 ####[facility] (DEFAULT)[address] [place] [address] 39288 Hematocrit (Bld) [Volume fraction] 43.1 % High 33.7-40.4 [facility] Comment on above: Performed By: #### 1 1426128, [id number], 4835453 ####[facility] (DEFAULT)[address] [place] [address] 21764 Hemoglobin (Bld) [Mass/Vol] 14.0 g/dL Normal 11.3-15.9 [facility] Comment on above: Performed By: #### 1 6088197, [id number], 2809941 ####[facility] (DEFAULT)[address] [place] [address] Man Diff? Auto Invalid Interpretation Code [facility] Comment on above: Performed By: #### 1 0593298, [id number], 9721616 ####[facility] (DEFAULT)[address] [place] [address] 61124 MCH (RBC) [Entitic mass] 28 pg Normal 24-34 [facility] Comment on above: Performed By: #### 1 4448325, [id number], 4807976 ####[facility] (DEFAULT)[address] [place] [address] MCHC (RBC) [Mass/Vol] 33 g/dL Normal 26-37 [facility] Comment on above: Performed By: #### 1 [id number], [id number], 1656140 ####[facility] (DEFAULT)[address] [place] [address] MCV (RBC) [Entitic vol] 86 fL Normal 81-100 [facility] Comment on above: Performed By: #### 1 5646150, [id number], 3592614 ####[facility] (DEFAULT)[address] [place] [address] Platelet 204 x10 Normal 138-427 [facility] Comment on above: Performed By: #### 1 8753377, [id number], 8706031 ####[facility] (DEFAULT)[address] [place] [address] Platelet mean volume (Bld) [Entitic vol] 7.4 fL Normal 6.3-10.2 [facility] Comment on above: Performed By: #### 1 6928526, [id number], 7937907 ####[facility] (DEFAULT)[address] [place] [address] RBC 4.99 x10 Normal 3.70-5.30 [facility] Comment on above: Performed By: #### 1 4607063, [id number], 2946974 ####[facility] (DEFAULT)[address] [place] [address] WBC 5.1 x10 Normal 3.5-10.5 [facility] Comment on above: Performed By: #### 1 3899693, [id number], 1956518 ####[facility] (DEFAULT)[address] [place] [address] HGB A1C (GLYCO-HGB)on 2023 Glucose [Mass/Vol] 229 mg/dL Normal [facility] Comment on above: Performed By: #### 2 839-9, 48297-6, 76946-8 #### [facility] ([id number]) [address] [facility], [address] [place] [address] #### ESTF #### [facility] ([id number]) [address] [place] [address] 83574 HbA1c (Bld) [Mass fraction] 9.6 % High 4.4-5.6 [facility] Comment on above: Result Comment: NOTE ADA Guidelines Result HgbA1c Normal : less than 5.7 % Prediabetes : 5.7 % to 6.4 % Diabetes : > 6.4 % Use with caution in patients with abnormal hemoglobin variants as the half-life of red blood cells and in vivo glycation rates are affected. Performed By: #### 2 839-9, 54205-2, 85388-2 #### [facility] ([id number]) [address] [facility] [address] [place] [address] #### ESTF #### [facility] ([id number]) [address] [place] [address] 52725 BASIC METABOLIC PANLon 12-22 Anion gap [Moles/Vol] 8 mmol/L Normal 5-15 [facility] Comment on above: Performed By: #### 2 839-9, 59570-7, 45537-9 #### [facility] ([id number]) [address] [place] [address], [address] [place] [address] #### ESTF #### [facility] ([id number]) [address] [place] [address] 67516 Calcium [Mass/Vol] 8.2 mg/dL Low 8.5-10.5 [facility] Comment on above: Performed By: #### 2 839-9, 89003-2, 85644-0 #### [facility] ([id number]) [address] [place] [address], [address] [place] [address] #### ESTF #### [facility] ([id number]) [address] [place] [address] 87954 Chloride [Moles/Vol] 104 mmol/L Normal 98-109 [facility] Comment on above: Performed By: #### 2 839-9, 23581-0, 36911-6 #### [facility] ([id number]) [address] [place] [address], [address] [place] [address] #### ESTF #### [facility] ([id number]) [address] [place] [address] 61137 CO2 [Moles/Vol] 25 mmol/L Normal 22-32 [facility] Comment on above: Performed By: #### 2 839-9, 36173-4, 40697-4 #### [facility] ([id number]) [address] [place] [address], [address] [place] [address] #### ESTF #### [facility] ([id number]) [address] [place] [address] 89009 Creatinine [Mass/Vol] 0.89 mg/dL Normal 0.40-1.00 [facility] Comment on above: Result Comment: METH OD TRACEABLE TO IDMS STANDARD Performed By: #### 2 839-9, 34141-3, 83562-3 #### [facility] ([id number]) [address] [facility], [address] [place] [address] #### ESTF #### [facility] ([id number]) [address] [place] [address] 20804 GFR/1.73 sq M.predicted among non-blacks MDRD (S/P/Bld) [Vol rate/Area] 82 mL/min/{1.73_m2} Normal >59 [facility] Comment on above: Result Comment: Reported eGFR is based on the CKD-EPI 2020 equation that does not use a race coefficient. Performed By: #### 2 839-9, 72109-3, 33113-5 #### [facility] ([id number]) [address] [place] [address], [address] [place] [address] #### ESTF #### [facility] ([id number]) [address] [place] [address] 98597 Glucose [Mass/Vol] 215 mg/dL High 65-99 [facility] Comment on above: Performed By: #### 2 839-9, 23425-8, 63144-6 #### [facility] ([id number]) [address] [place] [address], [address] [place] [address] #### ESTF #### [facility] ([id number]) [address] [place] [address] 73351 Potassium [Moles/Vol] 4.3 mmol/L Normal 3.5-5.0 [facility] Comment on above: Performed By: #### 2 839-9, 00261-5, 63490-3 #### [facility] ([id number]) [address] [place] [address], [address] [place] [address] #### ESTF #### [facility] ([id number]) [address] [place] [address]56 Sodium [Moles/Vol] 137 mmol/L Normal 134-146 [facility] Comment on above: Performed By: #### 2 839-9, 08230-3, 71109-7 #### [facility] ([id number]) [address] [facility], [address] [place] [address] #### ESTF #### [facility] ([id number]) [address] [place] [address] Urea nitrogen [Mass/Vol] 22 mg/dL Normal 5-23 [facility] Comment on above: Performed By: #### 2 839-9, 59481-4, 79609-5 #### [facility] ([id number]) [address] [facility], [address] [place] [address] #### ESTF #### [facility] ([id number]) [address] [place] [address]703 COMPLETE BLOOD COUNT 12-22 Erythrocyte distribution width (RBC) [Ratio] 13.8 % Normal 11.5-15.0 [facility] Comment on above: Performed By: #### 2 839-9, 71013-9, 08764-4 #### [facility] ([id number]) [address] [facility], [address] [address] #### ESTF #### [facility] ([id number]) [address] [place] [address] Hematocrit (Bld) [Volume fraction] 33.8 % Low 35-47 [facility] Comment on above: Performed By: #### 2 839-9, 34667-3, 26184-2 #### [facility] ([id number]) [address] [facility], [address] [place] [address] #### ESTF #### [facility] ([id number]) [address] [place] [address] 50473 Hemoglobin (Bld) [Mass/Vol] 11.5 g/dL Low 11.7-15.5 [facility] Comment on above: Performed By: #### 2 839-9, 87574-7, 71710-7 #### [facility] ([id number]) [facility], [address] [address] #### ESTF #### [facility] ([id number]) [address] [place] [address] 49298 MCH (RBC) [Entitic mass] 29.2 pg Normal 27-34 [facility] Comment on above: Performed By: #### 2 839-9, 67002-7, 15748-4 #### [facility] ([id number]) [address] [place] [address] #### ESTF #### [facility] ([id number]) [address] [place] [address] 38362 MCHC (RBC) [Mass/Vol] 34.0 g/dL Normal 32-36 [facility] Comment on above: Performed By: #### 2 839-9, 69362-0, 61451-9 #### [facility] ([id number]) [address] [place] [address] #### ESTF #### [facility] ([id number]) [address] [place] [address]015 MCV (RBC) [Entitic vol] 86 fL Normal 80-100 [facility] Comment on above: Performed By: #### 2 839-9, 90917-1, 32787-6 #### [facility] ([id number]) [address] [place] [address] #### ESTF #### [facility] ([id number]) [address] [place] [address] 11081 Platelet mean volume (Bld) [Entitic vol] 7.6 fL Normal 7-12 [facility] Comment on above: Performed By: #### 2 839-9, 64408-8, 18882-5 #### [facility] ([id number]) [facility]0 [facility], [address] [address] #### ESTF #### [facility] ([id number]) [address] [place] [address]75 Platelets (Bld) [#/Vol] 183 10*3/uL Normal 150-450 [facility] Comment on above: Performed By: #### 2 839-9, 25629-7, 09848-4 #### [facility] ([id number]) [address] [place] [address], [address] [address] #### ESTF #### [facility] ([id number]) [address] [place] [address] 63110 RBC COUNT 3.94 X10E12/L Normal 3.80-5.20 [facility] Comment on above: Performed By: #### 2 839-9, 60870-8, 18309-5 #### [facility] ([id number]) [address] [place] [address], [address] [address] #### ESTF #### [facility] ([id number]) [address] [place] [address]71 WBC (Bld) [#/Vol] 4.0 10*3/uL Normal 4.0-11.0 [facility] Comment on above: Performed By: #### 2 839-9, 79917-7, 35751-5 #### [facility] ([id number]) [address] [place] [address], [address] [place] [address] #### ESTF #### [facility] ([id number]) [address] [place] [address] 13873 Glucose Glucometer (BldC) [M ass/Vol]on 12-23-2023 Glucose [Mass/Vol] 309 mg/dL High 65-99 [facility] Glucose [Mass/Vol] 236 mg/dL High 65-99 [facility] MAGNESIUMon 12-23-2023 Magnesium [Mass/Vol] 2.0 mg/dL Normal 1.8-2.6 [facility] Comment on above: Performed By: #### 2 839-9, 56874-6, 10426-7 #### [facility] ([id number]) [address] [facility] [facility], [address] [place] [address] #### ESTF #### [facility] ([id number]) [address] [place] [address] 62345 BASIC METABOLIC PANLon 12-21 Anion gap [Moles/Vol] 10 mmol/L Normal 5-15 [facility] Comment on above: Performed By: #### 2 839-9, 52948-6, 72620-2 #### [facility] ([id number]) [address] [facility] [facility], [address] [place] [address] #### ESTF #### [facility] ([id number]) [address] [place] [address] 48664 Calcium [Mass/Vol] 8.3 mg/dL Low 8.5-10.5 [facility] Comment on above: Performed By: #### 2 839-9, 44002-9, 62259-2 #### [facility] ([id number]) [address] [facility] [facility], [address] [place] [address] #### ESTF #### [facility] ([id number]) [address] [place] [address] 56536 Chloride [Moles/Vol] 100 mmol/L Normal 98-109 [facility] Comment on above: Performed By: #### 2 839-9, 36822-2, 97490-1 #### [facility] ([id number]) [address] [facility] [facility], [address] [place] [address] #### ESTF #### [facility] ([id number]) [address] [place] [address] 78928 CO2 [Moles/Vol] 25 mmol/L Normal 22-32 [facility] Comment on above: Performed By: #### 2 839-9, 41382-1, 77674-8 #### [facility] ([id number]) [address] [facility] [facility], [address] [place] [address] #### ESTF #### [facility] ([id number]) [address] [place] [address] 30362 Creatinine [Mass/Vol] 0.87 mg/dL Normal 0.40-1.00 [facility] Comment on above: Result Comment: METH OD TRACEABLE TO IDMS STANDARD Performed By: #### 2 839-9, 34166-3, 96586-5 #### [facility] ([id number]) [address] [facility] [facility], [address] [place] [address] #### ESTF #### [facility] ([id number]) [address] [place] [address] 72635 GFR/1.73 sq M.predicted among non-blacks MDRD (S/P/Bld) [Vol rate/Area] 84 mL/min/{1.73_m2} Normal >59 [facility] Comment on above: Result Comment: Reported eGFR is based on the CKD-EPI 2020 equation that does not use a race coefficient. Performed By: #### 2 839-9, 68822-5, 31574-6 #### [facility] ([id number]) [address] [facility] [facility], [address] [place] [address] #### ESTF #### [facility] ([id number]) [address] [place] [address] 29019 Glucose [Mass/Vol] 301 mg/dL High 65-99 [facility] Comment on above: Performed By: #### 2 839-9, 36228-6, 27909-0 #### [facility] ([id number]) [address] [facility] [facility], [address] [place] [address] #### ESTF #### [facility] ([id number]) [address] [place] [address] 39123 Potassium [Moles/Vol] 4.0 mmol/L Normal 3.5-5.0 [facility] Comment on above: Performed By: #### 2 839-9, 71647-2, 25910-9 #### [facility] ([id number]) [address] [facility] [facility], [address] [place] [address] #### ESTF #### [facility] ([id number]) [address] [place] [address] 44382 Sodium [Moles/Vol] 135 mmol/L Normal 134-146 [facility] Comment on above: Performed By: #### 2 839-9, 85936-0, 23899-4 #### [facility] ([id number]) [address] [facility] [facility], [address] [place] [address] #### ESTF #### [facility] ([id number]) [address] [place] [address] 77500 Urea nitrogen [Mass/Vol] 28 mg/dL High 5-23 [facility] Comment on above: Performed By: #### 2 839-9, 57326-3, 00479-8 #### [facility] ([id number]) [address] [facility], [address] [place] [address] #### ESTF #### [facility] ([id number]) [address] [place] [address] 59008 COMPLETE BLOOD COUNTon 12-21 Erythrocyte distribution width (RBC) [Ratio] 13.4 % Normal 11.5-15.0 [facility] Comment on above: Performed By: #### 2 839-9, 86692-5, 48048-7 #### [facility] ([id number]) [address], [address] [place] [address] #### ESTF #### [facility] ([id number]) [address] [place] [address] 43370 Hematocrit (Bld) [Volume fraction] 36.6 % Normal 35-47 [facility] Comment on above: Performed By: #### 2 839-9, 27929-4, 62698-1 #### [facility] ([id number]) [address], [address] [place] [address] #### ESTF #### [facility] ([id number]) [address] [place] [address] 33071 Hemoglobin (Bld) [Mass/Vol] 12.3 g/dL Normal 11.7-15.5 [facility] Comment on above: Performed By: #### 2 839-9, 97810-8, 33941-0 #### [facility] ([id number]) [address], [address] [place] [address] #### ESTF #### [facility] ([id number]) [address] [place] [address] 15452 MCH (RBC) [Entitic mass] 28.9 pg Normal 27-34 [facility] Comment on above: Performed By: #### 2 839-9, 46127-4, 43251-9 #### [facility] ([id number]) [address], [address] [place] [address] #### ESTF #### [facility] ([id number]) [address] [place] [address] 22102 MCHC (RBC) [Mass/Vol] 33.6 g/dL Normal 32-36 [facility] Comment on above: Performed By: #### 2 839-9, 53196-1, 49289-8 #### [facility] ([id number]) [address], [address] [place] [address] #### ESTF #### [facility] ([id number]) [address] [place] [address] 19892 MCV (RBC) [Entitic vol] 86 fL Normal 80-100 [facility] Comment on above: Performed By: #### 2 839-9, 85755-4, 15693-6 #### [facility] ([id number]) [address], [address] [place] [address] #### ESTF #### [facility] ([id number]) [address] [place] [address] 04464 Platelet mean volume (Bld) [Entitic vol] 7.4 fL Normal 7-12 [facility] Comment on above: Performed By: #### 2 839-9, 03767-5, 09237-7 #### [facility] ([id number]) [address], [address] [place] [address] #### ESTF #### [facility] ([id number]) [address] [place] [address] 62305 Platelets (Bld) [#/Vol] 220 10*3/uL Normal 150-450 [facility] Comment on above: Performed By: #### 2 839-9, 89333-3, 85152-4 #### [facility] ([id number]) [address], [address] [place] [address] #### ESTF #### [facility] ([id number]) [address] [place] [address] 77904 RBC COUNT 4.26 X10E12/L Normal 3.80-5.20 [facility] Comment on above: Performed By: #### 2 839-9, 52291-0, 68775-5 #### [facility] ([id number]) [address], [address] [place] [address] #### ESTF #### [facility] ([id number]) [address] [place] [address] 41872 WBC (Bld) [#/Vol] 5.1 10*3/uL Normal 4.0-11.0 [facility] Comment on above: Performed By: #### 2 839-9, 13066-3, 49848-2 #### [facility] ([id number]) [address] [facility], [address] [place] [address] #### ESTF #### [facility] ([id number]) [address] [place] [address] 33103 Glucose Glucometer (BldC) [M ass/Vol]on 12-22-2023 Glucose [Mass/Vol] 269 mg/dL High 65-99 [facility] Glucose [Mass/Vol] 283 mg/dL High 65-99 [facility] Glucose [Mass/Vol] 402 mg/dL Critically high 65-99 [facility] Glucose [Mass/Vol] 325 mg/dL High 65-99 [facility] MAGNESIUMon 12-22-2023 Magnesium [Mass/Vol] 1.9 mg/dL Normal 1.8-2.6 [facility] Comment on above: Performed By: #### 2 839-9, 37167-2, 42767-8 #### [facility] ([id number]) [address] [facility], [address] [place] [address] #### ESTF #### [facility] ([id number]) [address] [place] [address] 19246 BASIC METABOLIC PANLon 12-20 Anion gap [Moles/Vol] 9 mmol/L Normal 5-15 [facility] Comment on above: Performed By: #### 2 839-9, 15926-0, 76925-8 #### [facility] ([id number]) [address], [address] [place] [address] #### ESTF #### [facility] ([id number]) [address] [place] [address] 30600 Calcium [Mass/Vol] 8.7 mg/dL Normal 8.5-10.5 [facility] Comment on above: Performed By: #### 2 839-9, 72208-0, 13238-5 #### [facility] ([id number]) [address] [facility], [address] [place] [address] #### ESTF #### [facility] ([id number]) [address] [place] [address] 35707 Chloride [Moles/Vol] 96 mmol/L Low 98-109 [facility] Comment on above: Performed By: #### 2 839-9, 05426-1, 59209-4 #### [facility] ([id number]) [address] [facility], [address] [place] [address] #### ESTF #### [facility] ([id number]) [address] [place] [address] 41555 CO2 [Moles/Vol] 29 mmol/L Normal 22-32 [facility] Comment on above: Performed By: #### 2 839-9, 97305-4, 82878-3 #### [facility] ([id number]) [address], [address] [place] [address] #### ESTF #### [facility] ([id number]) [address] [place] [address] 56116 Creatinine [Mass/Vol] 0.80 mg/dL Normal 0.40-1.00 [facility] Comment on above: Result Comment: METH OD TRACEABLE TO IDMS STANDARD Performed By: #### 2 839-9, 10379-3, 53775-0 #### [facility] ([id number]) [address] [facility], [address] [place] [address] #### ESTF #### [facility] ([id number]) [address] [place] [address] 95960 eGFR (CKD-EPI) NON-RACE DEPENDENT >90 Normal >59 [facility] Comment on above: Result Comment: Reported eGFR is based on the CKD-EPI 2020 equation that does not use a race coefficient. Performed By: #### 2 839-9, 61332-2, 63070-8 #### [facility] ([id number]) [address] [facility], [address] [place] [address] #### ESTF #### [facility] ([id number]) [address] [place] [address] 36011 Glucose [Mass/Vol] 340 mg/dL High 65-99 [facility] Comment on above: Performed By: #### 2 839-9, 70540-1, 98575-4 #### [facility] ([id number]) [address], [address] [place] [address] #### ESTF #### [facility] ([id number]) [address] [place] [address] 29825 Potassium [Moles/Vol] 4.2 mmol/L Normal 3.5-5.0 [facility] Comment on above: Performed By: #### 2 839-9, 92173-9, 02561-7 #### [facility] ([id number]) [address] [facility], [address] [place] [address] #### ESTF #### [facility] ([id number]) [address] [place] [address] 08820 Sodium [Moles/Vol] 134 mmol/L Normal 134-146 [facility] Comment on above: Performed By: #### 2 839-9, 93889-9, 30576-8 #### [facility] ([id number]) [address], [address] [place] [address] #### ESTF #### [facility] ([id number]) [address] [place] [address] 01664 Urea nitrogen [Mass/Vol] 27 mg/dL High 5-23 [facility] Comment on above: Performed By: #### 2 839-9, 51411-5, 96784-0 #### [facility] ([id number]) [address], [address] [place] [address] #### ESTF #### [facility] ([id number]) [address] [place] [address] 27035 COMPLETE BLOOD COUNTon 12-20 Erythrocyte distribution width (RBC) [Ratio] 13.2 % Normal 11.5-15.0 [facility] Comment on above: Performed By: #### 2 839-9, 31611-5, 50561-9 #### [facility] ([id number]) [address], [address] [place] [address] #### ESTF #### [facility] ([id number]) [address] [place] [address] 73897 Hematocrit (Bld) [Volume fraction] 36.6 % Normal 35-47 [facility] Comment on above: Performed By: #### 2 839-9, 26944-3, 57768-9 #### [facility] ([id number]) [address], [address] [place] [address] #### ESTF #### [facility] ([id number]) [address] [place] [address] 76975 Hemoglobin (Bld) [Mass/Vol] 12.6 g/dL Normal 11.7-15.5 [facility] Comment on above: Performed By: #### 2 839-9, 31690-7, 80389-2 #### [facility] ([id number]) [address], [address] [place] [address] #### ESTF #### [facility] ([id number]) [address] [place] [address] 31213 MCH (RBC) [Entitic mass] 29.0 pg Normal 27-34 [facility] Comment on above: Performed By: #### 2 839-9, 43285-6, 53859-8 #### [facility] ([id number]) [address], [address] [place] [address] #### ESTF #### [facility] ([id number]) [address] [place] [address] 54592 MCHC (RBC) [Mass/Vol] 34.3 g/dL Normal 32-36 [facility] Comment on above: Performed By: #### 2 839-9, 10912-5, 15959-6 #### [facility] ([id number]) [address], [address] [place] [address] #### ESTF #### [facility] ([id number]) [address] [place] [address] 27411 MCV (RBC) [Entitic vol] 85 fL Normal 80-100 [facility] Comment on above: Performed By: #### 2 839-9, 32755-4, 10316-4 #### [facility] ([id number]) [address], [address] [place] [address] #### ESTF #### [facility] ([id number]) [address] [place] [address] 57091 Platelet mean volume (Bld) [Entitic vol] 7.3 fL Normal 7-12 [facility] Comment on above: Performed By: #### 2 839-9, 44864-7, 10879-8 #### [facility] ([id number]) [address] [facility], [address] [place] [address] #### ESTF #### [facility] ([id number]) [address] [place] [address] 35570 Platelets (Bld) [#/Vol] 213 10*3/uL Normal 150-450 [facility] Comment on above: Performed By: #### 2 839-9, 08921-7, 10312-3 #### [facility] ([id number]) [address] [facility], [address] [address] #### ESTF #### [facility] ([id number]) [address] [place] [address] 24869 RBC COUNT 4.33 X10E12/L Normal 3.80-5.20 [facility] Comment on above: Performed By: #### 2 839-9, 59166-3, 50154-2 #### [facility] ([id number]) [address] [facility], [address] [place] [address] #### ESTF #### [facility] ([id number]) [address] [place] [address] 67156 WBC (Bld) [#/Vol] 5.0 10*3/uL Normal 4.0-11.0 [facility] Comment on above: Performed By: #### 2 839-9, 34964-9, 10800-8 #### [facility] ([id number]) [address] [facility], [address] [place] [address] #### ESTF #### [facility] ([id number]) [address] [place] [address] 59619 GLUCOSEon 12-21-2023 Glucose [Mass/Vol] 409 mg/dL Critically high 65-99 [facility] Comment on above: Performed By: #### 2 839-9, 79763-5, 44505-6 #### [facility] ([id number]) [address], [address] [place] [address] #### ESTF #### [facility] ([id number]) [address] [place] [address] 24808 Glucose Glucometer (BldC) [M ass/Vol]on 12-21-2023 Glucose [Mass/Vol] 363 mg/dL High 65-99 [facility] Glucose [Mass/Vol] 323 mg/dL High 65-99 [facility] Glucose [Mass/Vol] 307 mg/dL High 65-99 [facility] MAGNESIUMon 12-21-2023 Magnesium [Mass/Vol] 1.9 mg/dL Normal 1.8-2.6 [facility] Comment on above: Performed By: #### 2 839-9, 20954-3, 34295-6 #### [facility] ([id number]) [address], [address] [place] [address] #### ESTF #### [facility] ([id number]) [address] [place] [address] 29581 Beta hydroxybutyrate [Moles/ Vol]on 12-20-2023 BetaHydroxybutyrate 0.14 mmol/L Normal 0.02-0.27 [facility] Comment on above: Performed By: #### 2 839-9, 64416-0, 69755-6 #### [facility] ([id number]) [address], [address] [place] [address] #### ESTF #### [facility] ([id number]) [address] [place] [address] 40712 CBC AND AUTO DIFFon 12-20-19 24 ABSOLUTE BASOPHIL 0.0 X10E9/L Normal 0.0-0.2 [facility] Comment on above: Performed By: #### 2 839-9, 47398-0, 95411-5 #### [facility] ([id number]) [address] [place] [address], [facility] [address] [place] [address] #### ESTF #### [facility] ([id number]) [address] [place] [address] 13532 ABSOLUTE NEUTROPHIL 3.3 X10E9/L Normal 1.5-6.6 [facility] Comment on above: Performed By: #### 2 839-9, 98480-8, 58922-2 #### [facility] ([id number]) [address] [place] [address], [address] [address] #### ESTF #### [facility] ([id number]) [address] [place] [address] 08168 Basophils/100 WBC (Bld) 0.5 % Normal [facility] Comment on above: Performed By: #### 2 839-9, 73197-9, 69439-7 #### [facility] ([id number]) [address] [place] [address], [facility] [address] [place] [address] #### ESTF #### [facility] ([id number]) [address] [place] [address] 20562 Eosinophils (Bld) [#/Vol] 0.1 10*3/uL Normal 0.0-0.4 [facility] Comment on above: Performed By: #### 2 839-9, 25749-6, 79447-6 #### [facility] ([id number]) [address] [place] [address], [address] [place] [address] #### ESTF #### [facility] ([id number]) [address] [place] [address] 22530 Eosinophils/100 WBC (Bld) 1.1 % Normal [facility] Comment on above: Performed By: #### 2 839-9, 25297-7, 49600-5 #### [facility] ([id number]) [address] [facility], [address] [place] [address] #### ESTF #### [facility] ([id number]) [address] [place] [address] 89316 Erythrocyte distribution width (RBC) [Ratio] 13.6 % Normal 11.5-15.0 [facility] Comment on above: Performed By: #### 2 839-9, 63107-7, 19829-8 #### [facility] ([id number]) [address] [facility], [address] [place] [address] #### ESTF #### [facility] ([id number]) [address] [place] [address] 65974 Hematocrit (Bld) [Volume fraction] 40.4 % Normal 35-47 [facility] Comment on above: Performed By: #### 2 839-9, 78410-9, 62469-4 #### [facility] ([id number]) [address] [facility], [address] [place] [address] #### ESTF #### [facility] ([id number]) [address] [place] [address] 39001 Hemoglobin (Bld) [Mass/Vol] 13.2 g/dL Normal 11.7-15.5 [facility] Comment on above: Performed By: #### 2 839-9, 35029-1, 20788-6 #### [facility] ([id number]) [address] [facility], [address] [place] [address] #### ESTF #### [facility] ([id number]) [address] [place] [address] 66021 Lymphocytes (Bld) [#/Vol] 2.3 10*3/uL Normal 1.0-3.5 [facility] Comment on above: Performed By: #### 2 839-9, 58347-7, 65297-1 #### [facility] ([id number]) [address] [facility], [address] [place] [address] #### ESTF #### [facility] ([id number]) [address] [place] [address] [id number] Lymphocytes/100 WBC (Bld) 37.6 % Normal [facility] Comment on above: Performed By: #### 2 839-9, 04980-8, 79129-9 #### [facility] ([id number]) [address] [facility], [address] [place] [address] #### ESTF #### [facility] ([id number]) [address] [place] [address] [id number] MCH (RBC) [Entitic mass] 28.8 pg Normal 27-34 [facility] Comment on above: Performed By: #### 2 839-9, 91000-4, 72108-5 #### [facility] ([id number]) [facility] [facility] [facility], [address] [place] [address] #### ESTF #### [facility] ([id number]) [address] [place] [address] 15215 MCHC (RBC) [Mass/Vol] 32.8 g/dL Normal 32-36 [facility] Comment on above: Performed By: #### 2 839-9, 44019-3, 45585-5 #### [facility] ([id number]) [address] [facility], [address] [place] [address] #### ESTF #### [facility] ([id number]) [address] [place] [address] [id number] MCV (RBC) [Entitic vol] 88 fL Normal 80-100 [facility] Comment on above: Performed By: #### 2 839-9, 11328-8, 45658-8 #### [facility] ([id number]) [address], [address] [place] [address] #### ESTF #### [facility] ([id number]) [address] [place] [address] 94038 Monocytes (Bld) [#/Vol] 0.4 10*3/uL Normal 0-0.9 [facility] Comment on above: Performed By: #### 2 839-9, 79497-8, 29631-6 #### [facility] ([id number]) [address], [address] [place] [address] #### ESTF #### [facility] ([id number]) [address] [place] [address] 84152 Monocytes/100 WBC (Bld) 6.3 % Normal [facility] Comment on above: Performed By: #### 2 839-9, 31859-4, 83496-6 #### [facility] ([id number]) [address], [address] [place] [address] #### ESTF #### [facility] ([id number]) [address] [place] [address] 56322 Neutrophils/100 WBC (Bld) 54.5 % Normal [facility] Comment on above: Performed By: #### 2 839-9, 54891-8, 61841-8 #### [facility] ([id number]) [address], [address] [place] [address] #### ESTF #### [facility] ([id number]) [address] [place] [address] 83717 Platelet mean volume (Bld) [Entitic vol] 7.6 fL Normal 7-12 [facility] Comment on above: Performed By: #### 2 839-9, 14104-8, 19812-7 #### [facility] ([id number]) [address] [facility] [place] [address] #### ESTF #### [facility] ([id number]) [address] [place] [address] 65165 Platelets (Bld) [#/Vol] 227 10*3/uL Normal 150-450 [facility] Comment on above: Performed By: #### 2 839-9, 39573-8, 56066-6 #### [facility] ([id number]) [facility]0 [facility], [address] [address] #### ESTF #### [facility] ([id number]) [address] [place] [address] 64357 RBC COUNT 4.60 X10E12/L Normal 3.80-5.20 [facility] Comment on above: Performed By: #### 2 839-9, 20836-4, 45926-9 #### [facility] ([id number]) [facility]0 [facility], [address] [place] [address] #### ESTF #### [facility] ([id number]) [address] [place] [address] 15030 WBC (Bld) [#/Vol] 6.1 10*3/uL Normal 4.0-11.0 [facility] Comment on above: Performed By: #### 2 839-9, 03065-4, 71365-8 #### [facility] ([id number]) [address] [facility], [address] [place] [address] #### ESTF #### [facility] ([id number]) [address] [place] [address] 40246 COMPREHENSIVE METABOLIC PANE Rodriguez 12-20-2023 Albumin [Mass/Vol] 3.4 g/dL Normal 3.2-5.3 [facility] Comment on above: Performed By: #### 2 839-9, 31798-3, 97922-8 #### [facility] ([id number]) [address] [facility], [address] [place] [address] #### ESTF #### [facility] ([id number]) [address] [place] [address] 98514 ALP [Catalytic activity/Vol] 91 U/L Normal 39-130 [facility] Comment on above: Performed By: #### 2 839-9, 18014-7, 88383-4 #### [facility] ([id number]) [facility]0 [facility], [address] [place] [address] #### ESTF #### [facility] ([id number]) [address] [place] [address] 64625 ALT [Catalytic activity/Vol] 23 U/L Normal 0-31 [facility] Comment on above: Performed By: #### 2 839-9, 58193-5, 74207-0 #### [facility] ([id number]) [address] [place] [address], [address] [place] [address] #### ESTF #### [facility] ([id number]) [address] [place] [address] 39065 Anion gap [Moles/Vol] 12 mmol/L Normal 5-15 [facility] Comment on above: Performed By: #### 2 839-9, 56333-2, 52645-3 #### [facility] ([id number]) [address] [facility], [address] [place] [address] #### ESTF #### [facility] ([id number]) [address] [place] [address] 19289 AST [Catalytic activity/Vol] 17 U/L Normal 0-41 [facility] Comment on above: Performed By: #### 2 839-9, 07843-8, 62941-5 #### [facility] ([id number]) [address] [facility], [address] [place] [address] #### ESTF #### [facility] ([id number]) [address] [place] [address] 97849 Bilirubin [Mass/Vol] 0.4 mg/dL Normal 0.3-1.2 [facility] Comment on above: Performed By: #### 2 839-9, 39836-3, 01650-9 #### [facility] ([id number]) [address] [facility], [address] [place] [address] #### ESTF #### [facility] ([id number]) [address] [place] [address] 49536 Calcium [Mass/Vol] 9.0 mg/dL Normal 8.5-10.5 [facility] Comment on above: Performed By: #### 2 839-9, 65159-9, 73772-5 #### [facility] ([id number]) [address] [facility], [address] [place] [address] #### ESTF #### [facility] ([id number]) [address] [place] [address] 38049 Chloride [Moles/Vol] 87 mmol/L Low 98-109 [facility] Comment on above: Performed By: #### 2 839-9, 68470-5, 74551-9 #### [facility] ([id number]) [address] [facility], [address] [place] [address] #### ESTF #### [facility] ([id number]) [address] [place] [address] CO2 [Moles/Vol] 24 mmol/L Normal 22-32 [facility] Comment on above: Performed By: #### 2 839-9, 39190-8, 47718-2 #### [facility] ([id number]) [address] [facility], [address] [place] [address] #### ESTF #### [facility] ([id number]) [address] [place] [address] 81693 Creatinine [Mass/Vol] 1.17 mg/dL High 0.40-1.00 [facility] Comment on above: Result Comment: METH OD TRACEABLE TO IDMS STANDARD Performed By: #### 2 839-9, 69528-0, 68470-4 #### [facility] ([id number]) [address] [facility], [address] [place] [address] #### ESTF #### [facility] ([id number]) [address] [place] [address] 68897 GFR/1.73 sq M.predicted among non-blacks MDRD (S/P/Bld) [Vol rate/Area] 59 mL/min/{1.73_m2} Low >59 [facility] Comment on above: Result Comment: Reported eGFR is based on the CKD-EPI 2020 equation that does not use a race coefficient. Performed By: #### 2 839-9, 04809-9, 90155-4 #### [facility] ([id number]) [address] [facility], [address] [place] [address] #### ESTF #### [facility] ([id number]) [address] [place] [address] 73532 Glucose [Mass/Vol] 928 mg/dL Critically high 65-99 [facility] Comment on above: Performed By: #### 2 839-9, 64347-9, 22040-4 #### [facility] ([id number]) [address] [facility], [address] [place] [address] #### ESTF #### [facility] ([id number]) [address] [place] [address] 99406 Potassium [Moles/Vol] 4.7 mmol/L Normal 3.5-5.0 [facility] Comment on above: Performed By: #### 2 839-9, 59800-0, 85895-2 #### [facility] ([id number]) [address] [facility], [address] [place] [address] #### ESTF #### [facility] ([id number]) [address] [place] [address] 87344 Protein [Mass/Vol] 7.5 g/dL Normal 6.0-8.0 [facility] Comment on above: Performed By: #### 2 839-9, 03243-4, 84582-3 #### [facility] ([id number]) [address] [facility], [address] [place] [address] #### ESTF #### [facility] ([id number]) [address] [place] [address] 62911 Sodium [Moles/Vol] 123 mmol/L Low 134-146 [facility] Comment on above: Performed By: #### 2 839-9, 70516-8, 25489-4 #### [facility] ([id number]) [address] [facility], [address] [place] [address] #### ESTF #### [facility] ([id number]) [address] [place] [address] 11496 Urea nitrogen [Mass/Vol] 31 mg/dL High 5-23 [facility] Comment on above: Performed By: #### 2 839-9, 81025-9, 47839-6 #### [facility] ([id number]) [address] [facility], [address] [place] [address] #### ESTF #### [facility] ([id number]) [address] [place] [address] 98376 Fibrin D-dimer DDU (PPP) [Ma ss/Vol]on 12-20-2023 D DIMER <150 Normal <255 [facility] Comment on above: Result Comment: Results <255 ng/mL DDU: The presence of a VTE can safely be excluded with a negative D-Dimer result and Wells score. A negative result doesn't exclude the possibility of DIC. The test be repeated along with other diagnostic tests if the patient's symptoms persist or worsen. [email or web address] Performed By: #### 2 839-9, 70554-9, 34700-3 #### [facility] ([id number]) [address] [facility], [address] [place] [address] #### ESTF #### [facility] ([id number]) [address] [place] [address] 46652 Glucose Glucometer (BldC) [M ass/Vol]on 12-20-2023 Glucose [Mass/Vol] 350 mg/dL High 65-99 [facility] BEDSIDE GLUCOSE LAB >[address] [place] [address] Comment on above: Result Comment: SEE LAB RESULTS FOR CONFIRMATION BEDSIDE GLUCOSE LAB >[address] [place] [address] Comment on above: Result Comment: SEE LAB RESULTS FOR CONFIRMATION BEDSIDE GLUCOSE LAB >[address] [place] [address] Comment on above: Result Comment: SEE LAB RESULTS FOR CONFIRMATION Natriuretic peptide B [Mass/ Vol]on 12-20-2023 Natriuretic peptide B (Bld) [Mass/Vol] 10 pg/mL Normal <100.0 [facility] Comment on above: Performed By: #### 2 839-9, 15057-3, 55451-9 #### [facility] ([id number]) [address] [place] [address], [address] [place] [address] #### ESTF #### [facility] ([id number]) [address] [place] [address] 23835 Troponin I.cardiac High sens itivity method [Mass/Vol]on 12-20-2023 1 HOUR TROP I, HIGH SENSITIVITY 3 ng/L Normal <16 [facility] Comment on above: Performed By: #### 2 839-9, 01088-3, 75470-7 #### [facility] ([id number]) [address] [place] [address], [address] [place] [address] #### ESTF #### [facility] ([id number]) [address] [place] [address] 84006 TROPONIN I, HIGH SENSITIVITY <2 Normal <16 [facility] Comment on above: Performed By: #### 2 839-9, 60031-0, 19741-2 #### [facility] ([id number]) [address] [place] [address], [facility] [address] [place] [address] #### ESTF #### [facility] ([id number]) [address] [place] [address] 11454 URINE CULTUREon 12-20-2023 Bacteria identified Cx Nom (U) CULTURE RESULTS >100,000 ORGANISMS/mL ESCHERICHIA COLI <10,000 ORGANISMS/mL NORMAL URO GENITAL MAYI [ S = SUSCEPTIBLE R = RESISTANT I = INTERMEDIATE S-DO = Susceptible-dose dependent NS = Non-suscceptible NO = No Interpretation ] Organism: ESCHERICHIA COLI Antibiotic Interpretation ANTONELLA Status AMPICILLIN S 8 F AMP/SULBACTAM S 4/2 F CEFAZOLIN S <=4 F CEFTRIAXONE S <=1 F CIPROFLOXACIN S <=0.25 F GENTAMICIN S <=1 F LEVOFLOXACIN S <=0.12 F NITROFURANTOIN S <=16 F PIPERACIL/TAZOBACTA M S <=4 F TOBRAMYCIN S <=1 F TRIMETH/SULFAMETHOX AZOLE S <=/ F Susceptible [facility] Comment on above: Performed By: #### 2 839-9, 91685-5, 11825-9 #### [facility] ([id number]) [address], [address] [place] [address] #### ESTF #### [facility] ([id number]) [address] [place] [address] 04665 URN MACROSCOPIC NURon 2023 BILIRUBIN SMITHA Negative Normal NEG [facility] Comment on above: Performed By: #### 2 839-9, 40151-9, 95058-7 #### [facility] ([id number]) [address], [address] [place] [address] #### ESTF #### [facility] ([id number]) [address] [place] [address] 77083 BLOOD/HGB SMITHA Negative Normal NEG [facility] Comment on above: Performed By: #### 2 839-9, 26423-2, 70337-5 #### [facility] ([id number]) [address], [address] [place] [address] #### ESTF #### [facility] ([id number]) [address] [place] [address] 18498 GLUCOSE SMITHA >=1000 Abnormal NEG [facility] Comment on above: Performed By: #### 2 839-9, 25838-9, 06017-6 #### [facility] ([id number]) [address], [address] [place] [address] #### ESTF #### [facility] ([id number]) [address] [place] [address] 62158 KETONES SMITHA Negative Normal NEG [facility] Comment on above: Performed By: #### 2 839-9, 22587-6, 91739-9 #### [facility] ([id number]) [address], [address] [place] [address] #### ESTF #### [facility] ([id number]) [address] [place] [address] 54280 LEUKOCYTE ESTERASE SMITHA Negative Normal NEG [facility] Comment on above: Performed By: #### 2 839-9, 34660-2, 88323-2 #### [facility] ([id number]) [address], [address] [place] [address] #### ESTF #### [facility] ([id number]) [address] [place] [address] 85951 NITRITE SMITHA Positive Abnormal NEG [facility] Comment on above: Performed By: #### 2 839-9, 47913-2, #### [facility] ([id number]) [address], [address] [place] [address] #### ESTF #### [facility] ([id number]) [address] [place] [address] 28409 PH SMITHA 5.0 Normal 5.0-8.5 [facility] Comment on above: Performed By: #### 2 839-9, 47350-4, 75758-4 #### [facility] ([id number]) [address], [address] [place] [address] #### ESTF #### [facility] ([id number]) [address] [place] [address] 40594 PROTEIN SMITHA Negative Normal NEG [facility] Comment on above: Performed By: #### 2 839-9, 63440-5, 98667-4 #### [facility] ([id number]) [address], [address] [place] [address] #### ESTF #### [facility] ([id number]) [address] [facility], [place] [address] SPECIFIC GRAVITY SMITHA <=1.005 Normal 1.003-1.035 [facility] Comment on above: Performed By: #### 2 839-9, 57867-2, 63962-9 #### [facility] ([id number]) [facility]0 [facility], [address] [place] [address] #### ESTF #### [facility] ([id number]) [address] [place] [address], [place] [address] UROBILINOGEN SMITHA 0.2 eu/dL Normal <1.1 [facility] Comment on above: Performed By: #### 2 839-9, 03802-7, 73658-4 #### [facility] ([id number]) [address] [place] [address], [address] [place] [address] #### ESTF #### [facility] ([id number]) [address] [place] [address], [place] [address] XR CHEST 1 VWon 12-20-2023 XR CHEST 1 VW XR CHEST 1 VW Single view chest History:sob Difficulty breathing, shortness of breath Comparison: 06/04/2023 Findings: Single portable view of the chest. Stable cardia mediastinal silhouette. No focal opacity, effusion or pneumothorax. Impression: No evidence of acute cardiac pulmonary process. 3 Finalized by Aliya Gan MD on 12/20/2023 5:35 PM Normal [facility] AFB CULTURE(CONCENTRATED)on 11-22-2023 Mycobacterium sp identified Org specific cx Nom (Unsp spec) AFB SMEAR NO ACID FAST BACILLI (CONCENTRATED SMEAR) CULTURE RESULTS NO ACID FAST BACILLI ISOLATED IN 8 WEEKS Normal [facility] Comment on above: Performed By: #### 5 43-9 #### [facility] ([id number]) [address] [place] [address], [address] [place] [address] AFB CULTURE(DIRECT)on 2023 Mycobacterium sp identified Org specific cx Nom (Unsp spec) AFB SMEAR NO ACID FAST BACILLI (DIRECT SMEAR) CULTURE RESULTS NO ACID FAST BACILLI ISOLATED IN 8 WEEKS Normal [facility] Comment on above: Performed By: #### 5 43-9 #### [facility] ([id number]) [address], [address] [place] [address] ANAEROBE CULTUREon 4 Bacteria identified Anaer cx Nom (Unsp spec) CULTURE RESULTS NO GROWTH 5 DAYS Normal [facility] Comment on above: Performed By: #### B FCT #### [facility] ([id number]) [address], [address] [place] [address] AND DIFFon 2023 BODY FLUID COMMENT Interpret ation-------- Normal [facility] Comment on above: Result Comment: Refe rence values for this fluid type are undefined, as fluid accumulation is considered abnormal. Performed By: #### B FCT #### [facility] ([id number]) [address], [address] [place] [address] FLUID CLARITY CLEAR Normal [facility] Comment on above: Performed By: #### B FCT #### [facility] ([id number]) [address], [address] [place] [address] FLUID COLOR COLORLESS Normal [facility] Comment on above: Performed By: #### B FCT #### [facility] ([id number]) [address], [address] [place] [address] FLUID LYMPHOCYTE 17 % Normal [facility] Comment on above: Performed By: #### B FCT #### [facility] ([id number]) [address], [address] [place] [address] FLUID NEUTROPHILS 8 % Normal [facility] Comment on above: Performed By: #### B FCT #### [facility] ([id number]) [address] [place] [address] 7 /uL Normal [facility] Comment on above: Performed By: #### B FCT #### [facility] ([id number]) [address] [place] [address] FLUID SPECIMEN TYPE BRONCHOALVEOLAR LAVAGE Normal [facility] Comment on above: Result Comment: RIGH T LUNG UPPER LOBE Performed By: #### B FCT #### [facility] ([id number]) [address] [place] [address] MACROPHAGES 75 % Normal [facility] Comment on above: Performed By: #### B FCT #### [facility] ([id number]) [address] [place] [address] 9 /uL Normal [facility] Comment on above: Performed By: #### B FCT #### [facility] ([id number]) [address], [address] [place] [address] Cytologyon 11-22-2023 Cytology Normal [facility] Comment on above: Result Comment: [facility] [address] [place] [address] Cytology Consultation Patient Name:CARISSA LOZADA:1980 (Age: 43)Gender:FTaken:11/22/2023eported:11/23/2023 17:47Physician(s):Libby Finley MD ([phone])Copy To: Rec. #:[id number]: #[id number] Final Cytologic Diagnosis 1. 4R node, endobronchial ultrasound-guided fine needle aspirate (8 smears, 1 ThinPrep): Lymphocytes are present consistent with lymph node. No malignant cells identified. 2. Right upper lobe lung bronchoalveolar lavage (1 ThinPrep, 2 H&E cell block): No malignant cells identified. /11/23/2023 Interpretation performed at [facility], [facility] [address], License number: [id number].Electronically Signed Out By Irving Harris MD Additional Report(s): Flow Cytometry-Surg/BM/NG Date Reported: 11/23/2023 The specimen is hypocellular. Immunophenotypic analysis of the lymphoid cells demonstrates a mixed population of phenotypically unremarkable T-cells and polyclonal B-cells. A minute population of B-cells representing 2% of all lymphocytes shows expression of CD19, CD23, and kappa light chain only. The findings are of uncertain clinical significance and not diagnostic of a lymphoid neoplasm based on flow cytometry alone. Immunophenotyping antibodies tested: CD3, CD5, CD7, CD10, CD19, CD20, CD23, CD45, Athena, and Lambda. Immunophenotyping Comment: Immunophenotyping has been used in this diagnostic evaluation. This test was developed and its performance characteristics determined by the [facility] Clinical Laboratories Department. It has not been cleared or approved by the U.S. Food and Drug Administration. The FDA has determined that such clearance or approval is not necessary. This test is used for clinical purposes. It should not be regarded as investigational or for research. This laboratory is certified under the Clinical Laboratory Improvement Amendments of 1988 ( CLIA ) as qualified to perform high-complexity clinical testing. Electronically Signed Out Regis Joshi MD Clinical History Right upper lobe nodule, stable not PET avid; slightly PET added 4R node. Lymphadenopathy. Rapid On Site Interpretation 4R node fine needle aspirate: Passes 1-3: Sparse lymphocytes, inadequate Pass 4: Lymphocytes consistant with lymph node. Dr. Harris Interpretation provided at [facility], [facility] [place] [address]. Gross Description 1.Prepared in Endoscopy were 8 slides in alcohol. Also received was a needle rinse in CytoLyt for thinprep. 2.Received was 35mL of cloudy colorless fluid unfixed labeled as Angela, Right upper lobe BAL . CytoLyt added in lab. Specimen placed in formalin at 18:00 and had a total fixation time of 7 hours. Source of Specimen 1: 4R node fine needle aspirate Non TOWER EXCAVATOR OPERATOR ThinPrep, Slides Made x 8 2: Right upper lobe lung bronchoalveolar lavage Non TOWER EXCAVATOR OPERATOR ThinPrep, Cell block for Non-street sweeper operator (M), Level 2 H&E Fee Code(s): 1; 60163, 72442, 80368(3), 74744 2; 63470, 21470 FUNGAL CULTUREon 11-22-2023 Fungus identified Cx Nom (Unsp spec) FUNGAL SMEAR NO FUNGAL ELEMENTS SEEN ON DIRECT SMEAR CULTURE RESULTS NO FUNGUS ISOLATED AFTER 4 WEEKS [facility] Comment on above: Performed By: #### 5 80-1 #### [facility] [facility] ([id number]) [address], [address] [place] [address] Fungus identified Cx Nom (Unsp spec) FUNGAL SMEAR NO FUNGAL ELEMENTS SEEN ON CONCENTRATED SMEAR CULTURE RESULTS NO FUNGUS ISOLATED AFTER 4 WEEKS Normal [facility] Comment on above: Performed By: #### 5 80-1 #### [facility] ([id number]) [address], [address] [place] [address] Flow cytometry specialist re view Dontrell (Unsp spec) [Interp]on 11-22-2023 FLOW CYTOMETRY TISSUE/FLUID, NON CSF/NON BAL SEE SEPARATE REPORT, REVIEWED BY PATHOLOGIST Normal [facility] Comment on above: Performed By: #### 6 9052-9 #### [facility] ([id number]) [address], [address] [place] [address] Glucose Glucometer (BldC) [M ass/Vol]on 11-22-2023 Glucose [Mass/Vol] 128 mg/dL High 65-99 [facility] LOWER RESPIRATORY CULTUREon 11-22-2023 Bacteria identified Respiratory culture Nom (Sput) GRAM STAIN 10 to 24 WHITE BLOOD CELLS/LPF 0 SQUAMOUS EPITHELIAL CELLS/LPF 0 CILIATED EPITHELIAL CELLS/LPF NO ORGANISMS SEEN CULTURE RESULTS RARE NORMAL ORAL MAYI Normal [facility] Comment on above: Performed By: #### 6 24-7 #### [facility] ([id number]) [address] [facility], [address] [place] [address] TISSUE CULTUREon 11-22-2023 Bacteria identified Aer cx Nom (Tiss) GRAM STAIN 1 to 9 WHITE BLOOD CELLS/LPF 0 SQUAMOUS EPITHELIAL CELLS/LPF NO ORGANISMS SEEN CULTURE RESULTS NO GROWTH 5 DAYS Normal [facility] Comment on above: Performed By: #### 6 27-0 #### [facility] ([id number]) [address] [facility], [address] [place] [address] BASIC METABOLIC PANLon 11-16 Anion gap [Moles/Vol] 10 mmol/L Normal 5-15 [facility] Comment on above: Performed By: #### 2 839-9, 99446-4, 13356-9 #### [facility] ([id number]) [address] [facility], [address] [place] [address] #### ESTF #### [facility] ([id number]) [address] [place] [address] Calcium [Mass/Vol] 9.4 mg/dL Normal 8.5-10.5 [facility] Comment on above: Performed By: #### 2 839-9, 52879-4, 97504-3 #### [facility] ([id number]) [address] [facility], [address] [place] [address] #### ESTF #### [facility] ([id number]) [address] [place] [address] Chloride [Moles/Vol] 99 mmol/L Normal 98-109 [facility] Comment on above: Performed By: #### 2 839-9, 96945-6, 35630-5 #### [facility] ([id number]) [address] [place] [address] [address] [place] [address] #### ESTF #### [facility] ([id number]) [address] [place] [address] CO2 [Moles/Vol] 31 mmol/L Normal 22-32 [facility] Comment on above: Performed By: #### 2 839-9, 62660-9, 28386-3 #### [facility] ([id number]) [address] [place] [address], [address] [address] #### ESTF #### [facility] ([id number]) [address] [place] [address] Creatinine [Mass/Vol] 0.83 mg/dL Normal 0.40-1.00 [facility] Comment on above: Result Comment: METH OD TRACEABLE TO IDMS STANDARD Performed By: #### 2 839-9, 60909-9, 22951-8 #### [facility] ([id number]) [address] [place] [address] #### ESTF #### [facility] ([id number]) [address] [place] [address]22 GFR/1.73 sq M.predicted among non-blacks MDRD (S/P/Bld) [Vol rate/Area] 89 mL/min/{1.73_m2} Normal >59 [facility] Comment on above: Result Comment: Reported eGFR is based on the CKD-EPI 1 equation that does not use a race coefficient. Performed By: #### 2 839-9, 52902-1, 00608-6 #### [facility] ([id number]) [address] [place] [address] #### ESTF #### [facility] ([id number]) [address] [place] [address]82 Glucose [Mass/Vol] 240 mg/dL High 65-99 [facility] Comment on above: Performed By: #### 2 839-9, 52717-2, 98080-4 #### [facility] ([id number]) [address] [facility], [address] [place] [address] #### ESTF #### [facility] ([id number]) [address] [place] [address]06 Potassium [Moles/Vol] 4.4 mmol/L Normal 3.5-5.0 [facility] Comment on above: Performed By: #### 2 839-9, 38225-1, 92720-9 #### [facility] ([id number]) [address] [place] [address], [address] [place] [address] #### ESTF #### [facility] ([id number]) [address] [place] [address] Sodium [Moles/Vol] 140 mmol/L Normal 134-146 [facility] Comment on above: Performed By: #### 2 839-9, 31367-6, 47238-1 #### [facility] ([id number]) [address] [place] [address], [address] [address] #### ESTF #### [facility] ([id number]) [address] [place] [address] Urea nitrogen [Mass/Vol] 23 mg/dL Normal 5-23 [facility] Comment on above: Performed By: #### 2 839-9, 73031-1, 81277-9 #### [facility] ([id number]) [address] [place] [address], [address] [place] [address] #### ESTF #### [facility] ([id number]) [address] [place] [address] CBC AND AUTO DIFFon 15-20 24 ABSOLUTE BASOPHIL 0.0 X10E9/L Normal 0.0-0.2 [facility] Comment on above: Performed By: #### 2 839-9, 83428-1, 77665-8 #### [facility] ([id number]) [address] [place] [address], [address] [place] [address] #### ESTF #### [facility] ([id number]) [address] [place] [address] ABSOLUTE NEUTROPHIL 3.9 X10E9/L Normal 1.5-6.6 [facility] Comment on above: Performed By: #### 2 839-9, 32688-1, 66342-2 #### [facility] ([id number]) [address] [place] [address], [address] [address] #### ESTF #### [facility] ([id number]) [address] [place] [address] 36586 Basophils/100 WBC (Bld) 0.5 % Normal [facility] Comment on above: Performed By: #### 2 839-9, 52919-8, 44577-1 #### [facility] ([id number]) [address] [place] [address], [address] [address] #### ESTF #### [facility] ([id number]) [address] [place] [address] 36971 Eosinophils (Bld) [#/Vol] 0.1 10*3/uL Normal 0.0-0.4 [facility] Comment on above: Performed By: #### 2 839-9, 01501-4, 89899-3 #### [facility] ([id number]) [address] [place] [address], [address] [place] [address] #### ESTF #### [facility] ([id number]) [address] [place] [address] Eosinophils/100 WBC (Bld) 1.6 % Normal [facility] Comment on above: Performed By: #### 2 839-9, 45964-7, 41776-0 #### [facility] ([id number]) [facility]0 [facility], [address] [address] #### ESTF #### [facility] ([id number]) [address] [place] [address] Erythrocyte distribution width (RBC) [Ratio] 13.5 % Normal 11.5-15.0 [facility] Comment on above: Performed By: #### 2 839-9, 74740-3, 61046-4 #### [facility] ([id number]) [address] [place] [address], [address] [address] #### ESTF #### [facility] ([id number]) [address] [place] [address] Hematocrit (Bld) [Volume fraction] 42.9 % Normal 35-47 [facility] Comment on above: Performed By: #### 2 839-9, 31775-7, 19774-6 #### [facility] ([id number]) [address] [place] [address], [address] [address] #### ESTF #### [facility] ([id number]) [address] [place] [address]96 Hemoglobin (Bld) [Mass/Vol] 14.2 g/dL Normal 11.7-15.5 [facility] Comment on above: Performed By: #### 2 839-9, 75594-2, 02131-5 #### [facility] ([id number]) [address] [place] [address], [address] [address] #### ESTF #### [facility] ([id number]) [address] [place] [address]71 Lymphocytes (Bld) [#/Vol] 2.5 10*3/uL Normal 1.0-3.5 [facility] Comment on above: Performed By: #### 2 839-9, 89244-3, 13893-1 #### [facility] ([id number]) [address] [place] [address], [address] [address] #### ESTF #### [facility] ([id number]) [address] [place] [address]71 Lymphocytes/100 WBC (Bld) 36.3 % Normal [facility] Comment on above: Performed By: #### 2 839-9, 75757-1, 97602-7 #### [facility] ([id number]) [address] [place] [address] #### ESTF #### [facility] ([id number]) [address] [place] [address]70 MCH (RBC) [Entitic mass] 28.9 pg Normal 27-34 [facility] Comment on above: Performed By: #### 2 839-9, 29460-2, 96270-6 #### [facility] ([id number]) [address] [place] [address], [address] [address] #### ESTF #### [facility] ([id number]) [address] [place] [address]756 MCHC (RBC) [Mass/Vol] 33.1 g/dL Normal 32-36 [facility] Comment on above: Performed By: #### 2 839-9, 58705-6, 02945-4 #### [facility] ([id number]) [address] [place] [address], [address] [address] #### ESTF #### [facility] ([id number]) [address] [place] [address] 02199 MCV (RBC) [Entitic vol] 87 fL Normal 80-100 [facility] Comment on above: Performed By: #### 2 839-9, 42037-7, 39975-1 #### [facility] ([id number]) [facility]0 [facility], [address] [place] [address] #### ESTF #### [facility] ([id number]) [address] [place] [address] Monocytes (Bld) [#/Vol] 0.4 10*3/uL Normal 0-0.9 [facility] Comment on above: Performed By: #### 2 839-9, 56023-4, 25847-2 #### [facility] ([id number]) [address] [place] [address], [address] [address] #### ESTF #### [facility] ([id number]) [address] [place] [address] 31274 Monocytes/100 WBC (Bld) 5.3 % Normal [facility] Comment on above: Performed By: #### 2 839-9, 82809-7, 76791-2 #### [facility] ([id number]) [address] [place] [address], [address] [address] #### ESTF #### [facility] ([id number]) [address] [place] [address]88 Neutrophils/100 WBC (Bld) 56.3 % Normal [facility] Comment on above: Performed By: #### 2 839-9, 62773-3, 55278-0 #### [facility] ([id number]) [address] [place] [address] #### ESTF #### [facility] ([id number]) [address] [place] [address]40 Platelet mean volume (Bld) [Entitic vol] 7.7 fL Normal 7-12 [facility] Comment on above: Performed By: #### 2 839-9, 54407-8, 60431-8 #### [facility] ([id number]) [address] [place] [address], [address] [place] [address] #### ESTF #### [facility] ([id number]) [address] [place] [address]62 Platelets (Bld) [#/Vol] 194 10*3/uL Normal 150-450 [facility] Comment on above: Performed By: #### 2 839-9, 95561-7, 05032-3 #### [facility] ([id number]) [address] [place] [address], [address] [address] #### ESTF #### [facility] ([id number]) [address] [place] [address] RBC COUNT 4.91 X10E12/L Normal 3.80-5.20 [facility] Comment on above: Performed By: #### 2 839-9, 50839-2, 98694-4 #### [facility] ([id number]) [address] [place] [address], [address] [address] #### ESTF #### [facility] ([id number]) [address] [place] [address]4 WBC (Bld) [#/Vol] 7.0 10*3/uL Normal 4.0-11.0 [facility] Comment on above: Performed By: #### 2 839-9, 32617-8, 70242-7 #### [facility] ([id number]) [address] [place] [address], [address] [address] #### ESTF #### [facility] ([id number]) [address] [place] [address] PROTIME AND INRon 11-17-2023 INR Coag (PPP) [Relative time] 1.0 {INR} Normal 0.8-1.1 [facility] Comment on above: Performed By: #### 2 839-9, 15626-3, 95991-4 #### [facility] ([id number]) [address], [address] [place] [address] #### ESTF #### [facility] ([id number]) [address] [place] [address]56 PT Coag (PPP) [Time] 11.1 s Normal 9.8-13.2 [facility] Comment on above: Result Comment: NEW REFERENCE RANGE Performed By: #### 2 839-9, 35754-5, 42987-5 #### [facility] ([id number]) [address] [facility], [address] [address] #### ESTF #### [facility] ([id number]) [address] [place] [address] aPTT Coag (PPP) [Time]on aPTT Coag (Bld) [Time] 33 s Normal 26-37 [facility] Comment on above: Result Comment: NEW REFERENCE RANGE Performed By: #### 2 839-9, 47580-5, 66657-6 #### [facility] ([id number]) [address] [facility] [place] [address] #### ESTF #### [facility] ([id number]) [address] [place] [address] Coding Summaryon 11-02-2023 Coding Summary HTMLBase 64 NynrmqmyQRn0cAh+PGh lYWQ+XI5DLIYuC02idC NuiO4eA6RLNUvKSxgyZ URFPPzMBhCgzyRxNC4u aXNjZXJu IC8+UN1kAYSqGrhpwRU tc1R9pEK7M55tcw5lGW suaUR3FAOpYpWlkpsug 8jdyTl2WZjjPxopXySf AJFahE97DOW4vS89Ic7 0iGEvvZBpy2rzlBl6Vu VdBEAzCAV2aFkhNCvga 1LvQEIhP91jqAQcr7T3 IGNvbGxhcHNlOyBlbXB 3xD0rYDpzkatju5ddld bvYzk9hl92oKGkn0C8q IS9E1IbzqQ5WICjoWJv UwzcdUYWoO9qhocxb9j uijzmGvJlOGEaSOi9EO o8AOOsiIoeHyWbRG63P VN8ATIuuqNdG2WnDZXu bRrbYaZ7x6S1Lo7JS1Z OCxgkR2ZPBFWKJJofrA Q+BK14va98V3EbEozqO nu8BYImXTA3eUR0nX6y KKNqVXtpv4H7xQG0K6D dafKyrw0hd5faRCTbKK puI14noFCbz8T5YJHzh AQ8TOWylSzwBwCioP45 Oyc+BGMwwTtvb8MxHcb fr0woo1fzzYc2PreiBW GdjjEqhOblAXB4t0VnW a1lXKJecRA2cLE1pP7s HtWeAcV8YUpaR777JeF dxEPmFgyzU69yW1SihH A+JOHcXzr0XRAldBnuA P9vL7WqMYExccqsaFLb qChkRD4oPRBftkxtEXJ riB3yJFTtC3m9MqHsZb P7COqyI3TpHFNunmjhS e01bW1zXnQkPaE8JKst A4MjroP6XRFvnJPoEAf uCXJ5I21kv6B1FGVcUI UxSFW4tOY6lA7mjAiko jogbGVmdDsgdmVydGlj ELtuTLncJ546UYZuzMd nPkNvZGluZyBEYXRlOi AgMDIvMjkvMjAyNDwvd GQ+ZUFfXVG5mTxwAXPs bCOnDEfqCr7wgBrwdFx yEW9mVEBouyboAYXglN 6lDDUdgKGkmLshMR1sI LFvolesj435CaRgQQA5 VVQovPPuD3YrkM1pXwP uZNSoEQKiA2KxcXLaAB gdF687XJvkSyK6GEKmi yAyB6RfHCMkoWonXiR7 h4L1Po5Dw1SzkmlsP9O gqRTmBqHpPwuaPMi2A4 RkPjwvdHI+XT71LSFfB J83OWh0PLM9eAxjFIzr ZMNgN3VwtM4sGcXjAAX kZGRkOyc+PHRhYmxlIH dpZHRoPScxMDAlJyBzd UswJU7wMa3qLLQhSLZw bZamcGLeUbKqj7gfQSB lFMqzMZ3chTxfC1OidY J2SGFql2a0Xb44V64uN 3JvdXA+VFWxpHR6iAF6 sW9fPzOpEjX5TSelO83 8LxYqyAIsSareb1fzu7 cprUt7DiU7TSHzgtQrj CjpMEM4z7JpHx09Y09j IHdpZHRoPSIxNSUiIHZ ztVuvpc1bzY1pXn2+PG ZgtUQ9dPC4lY3mIpKkO gM2OMabA304LtCiuFIa Igbln3moz3auvXj0RzO aMYWrddBcmDtuIPM1l5 RsRv44X1LrbFoiy9EdH pl8yu97vPJlb4W7jVZ4 N6VjUKDfgkconIIfgAj uTA0tZHFtftswVNCjaT 8nJQEkK0m3MuJqSyE5B EfnE8PpmnH1QLWwyDLp MVFhaYYFcG1sktctz0b ijwhfQvDdGWAnCUu7QN v3VOAswCzcYkQgILB0H hW5UME2cQHqyN9qmNzd leekaU2wGhm+TWE8cEO bdPSVGL5pDnctfCO+PH PtSTX9hQjuFJvkIUNtn B9zYXGrE9i5HfUbDwQ1 XDkvA4LaspL2KZVzuKS rSRIkmKZIuD0qplwaz2 lpzernGyYlMMBlOWa4T Tf4GHEprYyxUwKoNAN7 ToZ6TRT8tAYkyH6ejMr invxuaM9qXmc+QmlydG ffDAJ5XRp1L6WlYyk8V ICveKcuWP8gcZAnYZns Xc7ceLxxiAejON9dPKX bbzgaw878FlYuf1zfHJ OfeNItUKqlULK0D51ll 0A4OLPbNGCbBEG1tZM1 vS0ygUrsmgsovAKiqZw gdmVydGljYWwtYWxpZ2 66XHMuyUzhYbYfQLb9R 5DxRod4LIOeqZayUB9k cXScMFllCj6dyNgimJu hYU3cLYAfkvotw747Sc Rng4vzAHVwkLZpDYreD VW9H53qd9X2EVRaLIBn ZWI4wZB5eS4buTzxfat gbGVmdDsgdmVydGljYW ivEWosB651JBCpaNmmQ fHigTy0O0SiXzy9GOGi hPlmIL3vvSIuRTmlNx6 wpGgvjRopUC4yRSYgna zqo276AeRtv3uoNKDrv SCiHRorZDI2E80vz1J9 ZWPdMHBgQRQ5dOC9kN9 hbGlnbjogbGVmdDsgdm EgkXqwHGdhEZliX352P HRvcDsnPlBhdGllbnQg RCrfSFv4B5KlIetsqXQ +TY68TOAeEE47uJLnkJ Uio8zvwFj5ZkVwMQYmN GC6mChcDXyot1YdMEWd Q49lkOPcz8A7WPAgaWo tvMFoOhQdqVY0cZ5qPX xyehtpl0lcxcfyFutav 4fiib55uP16O18eDIft ZHRoPSIzMCUiIHZhbGl ctr6egE8mNk0+PGNvbC L0mND3lQ0nNOBlLqY3U EcgQ236YzMtoNNaTblf y2cag1rfoTc6CaH7VAF tcxSfuWsiXIW5k6SoRa 87G09ySGeoCEToBNZaT SOxLFTvuMnqkp7xwV6z Ii8+UXJdzTM2nPG1bX5 wTpRcGkW2AAfiW215Gy DnmNUtXzykZ83yW7Bcy XA+YKZoFks7RKFojSil XL8ujGXaFIlaLa2oSGZ 8ExNbGtZcZRlgR5StTA AgviswzxlnrCL6DAYkT MLlxT04Cl1tqLlcBETs fHDZgV2sgjkvh4vquwy uAaJfPHMtQLd0OHi7JW AilBdtRzOcJQG1GpV2F RJ8pGSdfP9koSvhhvui gS0pH3PiNXVcleysLn2 5nO2nNuDyBzA2FOzbTw c+RBAZIQ5UONDHBLFXU KxaCn8FCObaaDX+PHRk WJT1nCbpFSeiZRTziH2 qJKCzH8z9BhTfPqG7GT mmZ5XjUPQzyqqoUj37r C4uToQgCtJ3YAjlU8Tj whN8NKUymTMiCZovABY 6Q40qs9Q4RFFxTGWxBI X0rUQ2cK7zeLpsomvwh GVmdDsgdmVydGljYWwt FSowD943MXHcqWhcSlY bInR6WdZ5Hpf2G1TzXw u1FKHopJdoPM5ppKXyO YxcKt4xsBmdjZigMN6c ETBsnwqfPKXmiW4oBCI noZUmlPkdZO0lUZSvmg xpu465QkUiULE2QXFii PVmM0TyeZ8uAiPaFCBk WTVsL3TtaKNpRJnxQ40 5JNyjFqV9LYSnfhMvG7 FuOTUvlPlaIlC5o7S1T y69ALUNVULwovzwuJK+ ULCuJAM1xCnjGBygHCQ zuA4zWCOeO5t5GpYuLw R4VGmlS2NbXMDjoykoK z48sS9eUmGhBsU8ZNpw E7ZsjsH7SVNriBWbDUy cKKM0D69yt5O7DAHgSU NgXAE7wVB4pV3njCgqq jogbGVmdDsgdmVydGlj PUheLAchH153ODEpxNw nPkZFTUFMRTwvdGQ+PH EyNXC0tSnzSDorOKNii N7sTDNyO4h1PjIcZfJ4 UPvcW5MjLVZjftzqAe0 1mL4pMwQjVaL8EZpjV8 EpyuF9JGGskUZfKIhlX CR6Q57cr2U0SFYiZPOv WEX6jLL5dG9hrReocnm gbGVmdDsgdmVydGljYW lcPKqyI386FLEjzBdhI x1PDV69DK51M6LnArwr dGFibGU+PHRhYmxlIHd pZHRoPScxMDAlJyBzdH xgYB8eOp9gSWZxVDIjf BqipPYrUdEad2zoBNIg QVqvQA3kmYyfZ7PwgWM 1JSRml8s2Fz66G55qC7 JvdXA+BBIznFA7tTM0f K9uQnZxOdC8OTugL300 LiLcyPAjIpxny4jkg1j rmBb7ErMfXYNsbiShlN lvMBM5f6PeDq86B16qA HdpZHRoPSIyMCUiIHZh zTfqmd7lvN8gNa5+PGN uiTM7rKC7mJ7aLxUgOm F6XHhqN771HwQkwAMgL iqlL77nX0LbuTZ+PHRy Pbc1EBGzwCyxMZ7vgHH kKZymGn2jJRH6BhMeKv McYObwU4FpINFzcfvdr perwBP2XNTpIYCgqV02 Fv2rpYrkWg0gBYDiNHV 7ROOvkEVbJ9UmgO6aOv DqAOKyPPBsM7LybJXoY LcjH843TZcyKaK4FVEq foOoI1QmRMDyvPjpNsS 6g2N9Tx0NbCkpfAGoVQ 2tXyArOTs2W5GvSiz3X HYwrOedAX1hpDUrJTrr Og9srJxkzFfuDG0iURA srajuz506IhFfz1niZH TmvCLsRXjsESP0Q45fh 9A3RDMmZRUjMOU3qEQ9 kJ8dpFyjpcsikFYifDs gdmVydGljYWwtYWxpZ2 30FILnkDaoJaITWof9K 6DxDor7VRFftMlxVB1g vTLqZTgpHl5ubLgrvPf qNM3vYNExfbvkl838Nn Wap0nyXWQmwQXmZEboO HM3F36tv4A1JEJcEQEk IKJ8xPW7kX4hvUyqhcw gbGVmdDsgdmVydGljYW eyQKquK988AYKszNdvV q3LGok4Q0OdCne6XMAg wNrwKZ8xgPEvFOnsRi6 plWanaHnzSE8yUVYyph kox043YkEld0jhUCYuv QKnDKloWXP8W11cn1L6 IAXhAONyOFV5sLI9uL0 hbGlnbjogbGVmdDsgdm YczQwgUZysRLjyY634F HRvcDsnPlBheWVyOjwv dGQ+NK73wh83Z2IwWwl iQgq7UMLsQRP2eOL6pH 3uVUUhONqjd7S9lPL0L 1WajiKlmn6ih6exSUDw ZTo (more content not included)... [facility] BASIC METABOLIC PANLon 10-27 Anion gap [Moles/Vol] 7 mmol/L Normal 5-15 [facility] Comment on above: Performed By: #### C ARUN, BMP #### [facility] ([id number]) [address] [place] [address] [id number] Calcium [Mass/Vol] 9.2 mg/dL Normal 8.5-10.5 [facility] Comment on above: Performed By: #### C ARUN, BMP #### [facility] ([id number]) [address] [place] [address] 46034 Chloride [Moles/Vol] 102 mmol/L Normal 98-109 [facility] Comment on above: Performed By: #### C ARUN, BMP #### [facility] ([id number]) [address] [place] [address] 37677 CO2 [Moles/Vol] 27 mmol/L Normal 22-32 [facility] Comment on above: Performed By: #### C ARUN, BMP #### [facility] ([id number]) [address] [place] [address] 54614 Creatinine [Mass/Vol] 0.82 mg/dL Normal 0.40-1.00 [facility] Comment on above: Result Comment: METH OD TRACEABLE TO IDMS STANDARD Performed By: #### C ARUN, BMP #### [facility] ([id number]) [address] [place] [address] 49370 eGFR (CKD-EPI) NON-RACE DEPENDENT >90 Normal >59 [facility] Comment on above: Result Comment: Reported eGFR is based on the CKD-EPI 2020 equation that does not use a race coefficient. Performed By: #### C ARUN, BMP #### [facility] ([id number]) [address] [place] [address] 91546 Glucose [Mass/Vol] 194 mg/dL High 65-99 [facility] Comment on above: Performed By: #### C ARUN, BMP #### [facility] ([id number]) [address] [place] [address] 86823 Potassium [Moles/Vol] 4.4 mmol/L Normal 3.5-5.0 [facility] Comment on above: Performed By: #### C ARUN, BMP #### [facility] ([id number]) [address] [place] [address] 81512 Sodium [Moles/Vol] 136 mmol/L Normal 134-146 [facility] Comment on above: Performed By: #### C ARUN, BMP #### [facility] ([id number]) [address] [place] [address] 21327 Urea nitrogen [Mass/Vol] 26 mg/dL High 5-23 [facility] Comment on above: Performed By: #### C ARUN, BMP #### [facility] ([id number]) [address] [place] [address] 71015 CBC AND AUTO DIFFon 10-27-19 24 ABSOLUTE BASOPHIL 0.0 X10E9/L Normal 0.0-0.2 [facility] Comment on above: Performed By: #### C ARUN, BMP #### [facility] ([id number]) [address] [place] [address] 21950 ABSOLUTE NEUTROPHIL 3.6 X10E9/L Normal 1.5-6.6 [facility] Comment on above: Performed By: #### C ARUN, BMP #### [facility] ([id number]) [address] [place] [address] 98413 Basophils/100 WBC (Bld) 0.4 % Normal [facility] Comment on above: Performed By: #### C ARUN, BMP #### [facility] ([id number]) [address] [place] [address] 73193 Eosinophils (Bld) [#/Vol] 0.1 10*3/uL Normal 0.0-0.4 [facility] Comment on above: Performed By: #### C ARUN, BMP #### [facility] ([id number]) [address] [place] [address] 32671 Eosinophils/100 WBC (Bld) 1.3 % Normal [facility] Comment on above: Performed By: #### C ARUN, BMP #### [facility] ([id number]) [address] [place] [address] 30127 Erythrocyte distribution width (RBC) [Ratio] 13.4 % Normal 11.5-15.0 [facility] Comment on above: Performed By: #### C ARUN, BMP #### [facility] ([id number]) [address] [place] [address] 22454 Hematocrit (Bld) [Volume fraction] 41.1 % Normal 35-47 [facility] Comment on above: Performed By: #### C ARUN, BMP #### [facility] ([id number]) [address] [place] [address] 44445 Hemoglobin (Bld) [Mass/Vol] 13.9 g/dL Normal 11.7-15.5 [facility] Comment on above: Performed By: #### C ARUN, BMP #### [facility] ([id number]) [address] [place] [address] 93818 Lymphocytes (Bld) [#/Vol] 2.5 10*3/uL Normal 1.0-3.5 [facility] Comment on above: Performed By: #### C ARUN, BMP #### [facility] ([id number]) [address] [place] [address] 49508 Lymphocytes/100 WBC (Bld) 37.5 % Normal [facility] Comment on above: Performed By: #### C ARUN, BMP #### [facility] ([id number]) [address] [place] [address] 18230 MCH (RBC) [Entitic mass] 29.0 pg Normal 27-34 [facility] Comment on above: Performed By: #### Shane DIAS, BMP #### [facility] ([id number]) [address] [place] [address] 12140 MCHC (RBC) [Mass/Vol] 33.9 g/dL Normal 32-36 [facility] Comment on above: Performed By: #### C RAUN, BMP #### [facility] ([id number]) [address] [place] [address] 07453 MCV (RBC) [Entitic vol] 86 fL Normal 80-100 [facility] Comment on above: Performed By: #### Shane DIAS, BMP #### [facility] ([id number]) [address] [place] [address] 21070 Monocytes (Bld) [#/Vol] 0.4 10*3/uL Normal 0-0.9 [facility] Comment on above: Performed By: #### Shane DIAS, BMP #### [facility] ([id number]) [address] [place] [address] 81499 Monocytes/100 WBC (Bld) 6.3 % Normal [facility] Comment on above: Performed By: #### Shane DIAS, BMP #### [facility] ([id number]) [address] [place] [address] 34000 Neutrophils/100 WBC (Bld) 54.5 % Normal [facility] Comment on above: Performed By: #### Shane DIAS, BMP #### [facility] ([id number]) [address] [place] [address] 17653 Platelet mean volume (Bld) [Entitic vol] 6.9 fL Low 7-12 [facility] Comment on above: Performed By: #### Shane DIAS, BMP #### [facility] ([id number]) [address] [place] [address] 00664 Platelets (Bld) [#/Vol] 191 10*3/uL Normal 150-450 [facility] Comment on above: Performed By: #### C BCA, BMP #### [facility] ([id number]) [address] [place] [address] 88597 RBC COUNT 4.79 X10E12/L Normal 3.80-5.20 [facility] Comment on above: Performed By: #### C ARUN, BMP #### [facility] ([id number]) [address] [place] [address] 00466 WBC (Bld) [#/Vol] 6.6 10*3/uL Normal 4.0-11.0 [facility] Comment on above: Performed By: #### Shane DIAS, BMP #### [facility] ([id number]) [address] [place] [address] ABDOMEN AND PELVIS W CONT on 10-27-2023 CT ABDOMEN AND PELVIS W CONT CT ABDOMEN AND PELVIS W CONT CT ABDOMEN AND PELVIS HISTORY: Right lower quadrant pain. COMPARISON STUDY: CT 03/25/2022. TECHNIQUE: CT scan of the abdomen and pelvis performed with IV no oral contrast. 100 mL of Omnipaque 300 was injected intravenously without complication. Coronal and sagittal reformats generated and reviewed. FINDINGS: LOWER THORAX: Unremarkable. HEPATOBILIARY: No focal hepatic lesions. No biliary ductal dilatation. Gallbladder surgically absent. SPLEEN: Mild splenomegaly 14.4 cm. PANCREAS: No focal masses or ductal dilatation. ADRENALS: No adrenal nodules. KIDNEYS/URETERS: No collecting system dilatation, stones, or solid mass lesions. GI TRACT: No bowel obstruction. Appendix is normal. Colonic diverticulosis without inflammatory change. PELVIC ORGANS/BLADDER: Unremarkable. PERITONEUM/RETROPER ITONEUM: No free air or fluid. LYMPH NODES: No enlarged lymph nodes. VESSELS: Atherosclerotic calcifications without abdominal aortic aneurysm. BONES AND SOFT TISSUES: No suspicious osseous lesion. Small to moderate fat-containing umbilical hernia. IMPRESSION: 1. No acute abnormality. 2. Mild splenomegaly. All CT scans at this facility use dose modulation, iterative reconstruction, and/or weight based dosing when appropriate to reduce radiation dose to as low as reasonably achievable. 0 Finalized by Luiz Hernandez MD on 10/27/2023 8:42 PM Normal [facility] HCG ( test) IA.rapi d Ql (S)on 10-27-2023 SERUM Negative Normal NEG [facility] Comment on above: Performed By: #### 8 0385-8 #### [facility] ([id number]) [address] [place] [address] 59060 HCG ( test) Ql (U)o n 10-27-2023 Beta HCG ( test) Ql (U) Negative Normal [facility] Comment on above: Performed By: #### 2 839-9, 04592-0, 17339-9 #### [facility] ([id number]) [address], [address] [place] [address] #### ESTF #### [facility] ([id number]) [address] [place] [address] 23262 URN MACROSCOPIC NURon 2023 BILIRUBIN SMITHA Negative Normal [facility] Comment on above: Performed By: #### 2 839-9, 44012-5, 47323-5 #### [facility] ([id number]) [address], [address] [place] [address] #### ESTF #### [facility] ([id number]) [address] [place] [address] 43978 BLOOD/HGB SMITHA Small Abnormal NEG [facility] Comment on above: Performed By: #### 2 839-9, 11844-8, 95131-9 #### [facility] ([id number]) [address] [address], [address] [place] [address] #### ESTF #### [facility] ([id number]) [address] [place] [address] 08555 GLUCOSE SMITHA Negative Normal NEG [facility] Comment on above: Performed By: #### 2 839-9, 67538-1, 77508-4 #### [facility] ([id number]) [address], [address] [place] [address] #### ESTF #### [facility] ([id number]) [address] [place] [address] 29387 KETONES SMITHA Negative Normal NEG [facility] Comment on above: Performed By: #### 2 839-9, 22834-5, 39332-9 #### [facility] ([id number]) [address], [address] [place] [address] #### ESTF #### [facility] ([id number]) [address] [place] [address] 18033 LEUKOCYTE ESTERASE SMITHA Negative Normal NEG [facility] Comment on above: Performed By: #### 2 839-9, 22832-0, 40698-8 #### [facility] ([id number]) [address], [address] [place] [address] #### ESTF #### [facility] ([id number]) [address] [place] [address] 76953 NITRITE SMITHA Negative Normal NEG [facility] Comment on above: Performed By: #### 2 839-9, 87413-4, 77569-7 #### [facility] ([id number]) [address], [address] [place] [address] #### ESTF #### [facility] ([id number]) [address] [place] [address] 89005 PH SMITHA 5.5 Normal 5.0-8.5 [facility] Comment on above: Performed By: #### 2 839-9, 14984-1, 19842-8 #### [facility] ([id number]) [address], [address] [place] [address] #### ESTF #### [facility] ([id number]) [address] [place] [address] 28130 PROTEIN SMITHA 30 mg/dL Abnormal NEG [facility] Comment on above: Performed By: #### 2 839-9, 40886-6, 30593-6 #### [facility] ([id number]) [address], [address] [place] [address] #### ESTF #### [facility] ([id number]) [address] [place] [address] 71514 SPECIFIC GRAVITY SMITHA 1.015 Normal 1.003-1.035 [facility] Comment on above: Performed By: #### 2 839-9, 54063-1, 60029-6 #### [facility] ([id number]) [address], [address] [place] [address] #### ESTF #### [facility] ([id number]) [address] [place] [address] 10512 UROBILINOGEN SMITHA 0.2 eu/dL Normal <1.1 [facility] Comment on above: Performed By: #### 2 839-9, 40659-5, 23590-0 #### [facility] ([id number]) [address], [address] [place] [address] #### ESTF #### [facility] ([id number]) [address] [place] [address] 30407 ESTROGENS E1E2 FRACTon 10-26 ESTRADIOL 11.5 pg/mL Normal [facility] Comment on above: Result Comment: NOTE REFERENCE INTERVAL: Estradiol by [employer] Engine Operator For a complete set of all established reference intervals, refer to [employer]/Tests/Pub/[id number]. This test was developed and its performance characteristics determined by [facility] It has not been cleared or approved by the [place] Food and Drug Administration. This test was performed in a CLIA certified laboratory and is intended for clinical purposes. Performed By: #### 2 839-9, 08308-4, 72295-7 #### [facility] ([id number]) [address] [place] [address], [address] [place] [address] #### ESTF #### [facility] ([id number]) [address] [place] [address] 75587 Estrogens Total 46.9 pg/mL Normal [facility] Comment on above: Result Comment: NOTE Reference interval of estrogens (pg/mL) Estrone Estradiol Total Estrogens Early follicular <150.0 30.0-100.0 30.0-250.0 Late follicular 100.0-250.0 100.0-400.0 200.0-650.0 Luteal <200.0 50.0-150.0 50.0-350.0 Post-menopausal 3.0-32.0 2.0-21.0 5.0-52.0 REFERENCE INTERVAL: Estrogens Total Calculation For a complete set of all established reference intervals, refer to [employer]/Tests/Pub/[id number]. Performed By: [facility] [address] [place] [address] 24662 Accounting Professional: Alexys Gutierres MD, PhD CLIA Number: [id number] Performed By: #### 2 839-9, 81285-9, 71658-2 #### [facility] ([id number]) [address] [place] [address], [address] [place] [address] #### ESTF #### [facility] ([id number]) [address] [place] [address] 95922 ESTRONE 35.4 pg/mL Normal [facility] Comment on above: Result Comment: NOTE INTERPRETIVE INFORMATION: Estrone by [employer] Engine Operator For a complete set of all established reference intervals, refer to [employer]/Tests/Pub/[id number]. This test was developed and its performance characteristics determined by [facility] It has not been cleared or approved by the [place] Food and Drug Administration. This test was performed in a CLIA certified laboratory and is intended for clinical purposes. Performed By: #### 2 839-9, 79546-9, 31765-4 #### [facility] ([id number]) [address] [place] [address], [address] [place] [address] #### ESTF #### [facility] ([id number]) [address] [place] [address] 67773 Follitropin Qnon 10-26-2023 FOLLICLE STIM HORMONE 28.5 mIU/mL Normal [facility] Comment on above: Result Comment: NORMAL FEMALE Luteal 1.8-5.1 mIU/mL Follicular 3.8-8.8 mIU/mL Mid Cycle 4.5-22.5 mIU/mL Post Katarzyna 16.7-113.6 mIU/mL Performed By: #### 2 839-9, 28860-9, 94062-2 #### [facility] ([id number]) [address] [place] [address], [address] [place] [address] #### ESTF #### [facility] ([id number]) [address] [place] [address] 10767 Lutropin Qnon 10-26-2023 LUTEINIZING HORMONE 18.4 mIU/mL Normal [facility] Comment on above: Result Comment: NORMAL FEMALE Follicular 2.1-10.9 mIU/mL Mid Cycle 19.2-103 mIU/mL Luteal 1.2-12.9 mIU/mL Post [place] 10.9-58.6 mIU/mL Performed By: #### 2 839-9, 29581-3, 97580-7 #### [facility] ([id number]) [address] [address], [address] [place] [address] #### ESTF #### [facility] ([id number]) [address] [place] [address] 13742 Progesterone [Mass/Vol]on PROGESTERONE 0.5 ng/mL Normal [facility] Comment on above: Result Comment: FEMALES: 1st Tri: 4.7-50.7 ng/ml 2nd Tri: 19.4-45.3 ng/ml MENSTRUATING FEMALES: Follicular: 0.3-1.5 ng/ml Mid Luteal: 5.2-18.6 ng/ml Post [place]: <0.1-0.8 ng/ml Performed By: #### 2 839-9, 11857-6, 49798-9 #### [facility] ([id number]) [address] [place] [address] #### ESTF #### [facility] ([id number]) [address] [place] [address] 94076 US PELVIC WITH TRANSVAGINALo n 10-26-2023 US PELVIC WITH TRANSVAGINAL US PELVIC WITH TRANSVAGINAL CLINICAL INFORMATION: Amenorrhea COMPARISON: 08/09/2021. FINDINGS: Limited transabdominal and transvaginal ultrasound of the pelvis was performed. Profoundly limited due to body habitus. UTERUS: The uterus is estimated at 6.5 x 2.5 x 3.3 cm. No demonstrated discrete myometrial lesion, though study is significantly limited. The endometrial stripe is best approximated at 4-5 mm, however poorly visualized. OVARIES/ADNEXA: Ovaries are poorly visualized. The right ovary is estimated at approximately 1.9 x 0.9 x 0.7 cm, while the left ovary is approximated at 1.3 x 0.9 x 0.8 cm. No demonstrated discrete adnexal mass. OTHER: Perhaps trace free fluid. IMPRESSION: No definitive/unequivo coral sonographic abnormality of the pelvis. Consider follow-up and/or alternative means of evaluation depending on clinical concern/suspicion, given significant limitations of this study 4 Finalized by Aliya Gomez MD on 10/26/2023 4:17 PM Normal [facility] PET CT SKULL TO THIGHon 10-[address] SKULL TO THIGH PET CT SKULL TO THIGH PET CT SKULL TO THIGH REASON FOR EXAM: Cavitary lesion of lung COMPARISON: None PROCEDURE: After a suitable fast, the patient was injected with 17.8 mCi of F-18- fluorodeoxyglucose (FDG) intravenously, followed by whole body images from the base of the skull to the mid-thigh on the dedicated PET/CT system at 60 minutes post tracer injection. The data volume is reformatted into transverse, coronal and sagittal planes, as well as 3-dimensional volume-rendered (MIP) display. Blood glucose: 163 mg/dl. Mediastinal blood pool activity (SUV): 1.4 Liver activity: 2.5 FINDINGS: NECK: Normal physiologic activity in the imaged PRODUCTION GRADER. Contrast evaluation of the face/brain due to differences in positioning between the PET and CT acquisitions with misregistration artifact. No definitive suspicious hypermetabolic cervical lymph nodes are identified. Low Dose CT Images: No other acute or significant finding. CHEST: A 1.2 cm noncalcified right upper lobe nodule is redemonstrated. No significant residual tracer activity (max SUV 0.8). Mildly hypermetabolic right paratracheal lymph node (max SUV 2.8). A borderline 0.9 cm right axillary lymph node with corresponding FDG uptake (max SUV 1.9). Low Dose CT Images: No other acute or significant finding. ABDOMEN/PELVIS: Normal physiologic activity in the liver, spleen, and genitourinary tract. No suspicious hypermetabolic lymph nodes or other soft tissue deposit. Low Dose CT Images: Cholecystectomy. Multiple caliber aorta. Fat-containing. Focal hernia. OSSEOUS STRUCTURES: No worrisome osseous hypermetabolism. Robust activity at the left trochanteric bursa, presumably inflammatory. Clinical muscular activity, right more so than left. Presumed physiologic activity within the shoulder and posterior paraspinal muscles Low Dose CT Images: No other acute or significant finding. IMPRESSION: 1. Index 1.2 cm right upper lobe nodule persists however without suspicious FDG uptake, suggesting benign/indolent etiology. Nevertheless, recommend ongoing surveillance to ensure stability. 2. Moderate activity corresponding to a slightly enlarged pretracheal lymph node, indeterminate for infectious/inflamma tory versus neoplastic etiology. Consider ongoing surveillance or potential FNA/endobronchial ultrasound. 3. Additional right axillary lymph node with more mild FDG uptake and equivocal cortical thickening, favored reactive though likely also warranting continued follow-up . 4. Presumed left trochanteric bursitis and/or tendinitis 5. Additional findings/limitation s as above All CT scans at this facility use dose modulation, iterative reconstruction, and/or weight based dosing when appropriate to reduce radiation dose to as low as reasonably achievable 8 Finalized by Aliya Gomez MD on 10/24/2023 2:23 PM Normal [facility] Coding Summaryon 10-04-2023 Coding Summary HTMLBase 64 HqhkxoyeHGl3mSq+PGh lYWQ+OH9UHGWwB11azG DbnP4fU7NOIUeNIimoL VBFNHkGJwNtukKtMB0z aXNjZXJu IC8+WO5fCIEgEyvrkLP ue3U8qTB3B31hga1sTN xkwGD3TQOvCaWvlwxyk 2jqbTf4RPmzCvmnRjGn YEHrmE95BWW5cE57Gc0 8nADlgJOfu3bfvNj6Lk RiXFNoBYV7hAliEFbkk 6FyDEJbB26ylFApy1U1 IGNvbGxhcHNlOyBlbXB 7sQ4bLLnytkmnt7yifa wfHrt3ie32jZZxq7W6q ZR7M2UxmsL9PDPswZEm EvtepBKYrC8csfujp9f hvinpUhRpGYBaLEe5YY i5RPTrdQxzMeOoSY81A PO5IFKjtrFdA9XgRYHz fTeyUdW8k6W6Gi5HK2N RZcpuQ9IZFZOYEDfvwH Q+FJ61df79S0PuPqddQ vq2MVLaUZG1tXV5nC7n RQBaSNsrf6Z4bDY1M2Q oavItdt6gn1egZPYgBM brX16caNXdo9J0MTWqr NZ6NIHliPfnSzMeeV49 Oyc+WHGuzByoo4XtUfm hv7bhs1ofvEs0TzoxHQ FkcfBefBeiCIY6u0YnP q0cQRPfsGT2nNZ3tU1y EnScDoM6WBodQ315ZfI rbYHoKibeV27bO1LhrB A+SSQuYbk4IAAjjOqdE B5vY0ItRWOizaoswEIj zNkeLB5uGXRrwkrbBRI hdD9hGECpV0r4RkSpDu K9SOkdA2DmMELeeykaW w70bE6dJyIjGhU6YGuz X6EscmI2PPTajZTqGGv dLLD9M79hl7G7LZPoDZ IaSEM5jUM7oR5qlHpmz jogbGVmdDsgdmVydGlj PMzxCXjzM314ZAXcsZs nPkNvZGluZyBEYXRlOi AgMDEvMzEvMjAyNDwvd GQ+UITsCKX3iRssUDTz kFScOIifKt6rdFudfQy bSA6cPYCryvwzGDOxiU 1mZWCkzNAhnTjzLL0xA NSzuhboa016NzPePIW4 OYKufKPwC7UnjB7tBcX mNIOmZYPlS3KiwRBgBZ ecB732KJbtApB6FVDnn mIiP1PhZOFpjPybVwX8 v7D0Vx7Tk4ItakbwN1N bePZkYyBeCodvNXz9I9 RkPjwvdHI+RD32RJNzQ N06ZQq7MYP6lNhoKGnm GGBuB6EbxJ0kMpHqCJB kZGRkOyc+PHRhYmxlIH dpZHRoPScxMDAlJyBzd EvqXC5xDe3sGFZxQCDi dXerqOCxShMiz1rwLKF eQDsoUA1myEwwW7BqqZ U0ASNdv9e4Vx73S14xK 3JvdXA+UKSqgGM6cDU2 xC3jWyIcHdX8DOtrP24 4RoKuiJSsImdzv8ruf3 yfuAj1SnA5SNZdnnEjv XmeKLT9s0NjIe14U07b IHdpZHRoPSIxNSUiIHZ npTpmta6fgD5pFb0+PG FjnJK5xXG6oY1lRcNdB uQ7PUbaW958WcLxnFAh Bpkuz2rcr2wvxOm5IyP vGDFmuyYauObuHFO2e6 VjPv83D5ShpHgmk4VbX hp7bj32oSFds2R7lPN4 F7ClXZIivahuaILcfPu gMA2rVWTfdxnbZVGarT 4xGBJvP2q2NzTyUkH3D SauR0MyojZ5LHLxnYKq QIAniFOGsL8oqgipa8r wwfxtTxJyTQIfIRo1DK i1QWSmjMciNaTfHHY2Z oW6LRP0nEIbpH0jjJjy xllniP3fUtf+JXC4bSZ zpEFTIW8uHbmqfEX+PH XmOWW8oXobJVfvEIRbq W1bHNQiH2u1JhLuDpH8 KBvqJ3JxvqH3YCPrnNM iBNOdzXGStG2rqlbgx4 wqbnvrEhQjUWBzTNr4Y Ar0AQXkeIqoCfLuCLK4 AwF1VGR4qYFbiZ9laWb cidbbdY2bLuw+QmlydG sdZYC0XFu3O1RfPse6R LExfVmfTU0fzOEqHElf Ll7ilNivmSgrKM6cKNW jxlcwl759MkGzj5wtQD NtyJQpEYfiHZM8F13fv 0N8EPYjTMNwEXI3gEB3 mR2ubExrawomaISuaLt gdmVydGljYWwtYWxpZ2 25OXVqpVmkHcMsYSx8H 7XrVeq9VRYpxYxmZV0h tCYpQNvnOr6ncChrhXk mQB5hQCElchvzm250Df Lmi9ibEKHrbRDrHAxpJ XA2Y69ww9I7RSFuCKNk TSZ6sWZ8gU9geRjsfve gbGVmdDsgdmVydGljYW xdFPbzI957JHBppPiyD wSngBs6A2HbKxd8HIMf rJnkKF3hxPMyVWfkMh9 huRnjcRukZY4rTXGbbc uvp715EeIxn5qjPQVjy AApXNbgAGB5M14hz6W7 QINdRGTxIJF2uMS3yN0 hbGlnbjogbGVmdDsgdm MujWwkYRacQWhiF487Y HRvcDsnPlBhdGllbnQg AAqqDWa7N9BtHdkgkEC +CO87TSYzGT14sOTmzL Bbg4xutKv4OiVfJQKhA OQ5sDjxFDhcn8FvKFAm T80gqVHxf5A5ETSxxUu qjRNtSqWxuDC8bW6eOK txwovsi5lllllhVeyby 6gocx15jT23K53cUGog ZHRoPSIzMCUiIHZhbGl mjj5kvR6aTn9+PGNvbC E4wUG1eC5uPUMiUjQ2S SjtI108GsPbgBVcTjue o6bmw9sdzWi3UeD8TGE dagActRxkPLB6z1XaBk 97W06tADljPVIuAHVoE XLdGMArdLmkcn6hwD7s Ii8+TSAdaFF7fKZ3qY0 sJaVyNlT8KNlbR640Qn GniEOeMjpcL07oR5Hdc XA+YTXbGjr7QRMctJzj OC5hzGFcRLloLu9pVXM 8NnZhCzXhVKasT8YtSI FmhgswjjervBO4TMYxV ITqpI10Ft5ziPsySTLh dUVBwI0dmusor0savsz jIoZnRZVeOEk8XFn9FU EupFrkLkEvZPL0BsM9N KO7yIYbtR5qxNwltzgj vB3xC5SlKCOfeqlrYz5 7xU9zQmVnAuS7ODqdNi c+NKTUQM6ULUBEAJUGK BvjOp1ALJvtlCS+PHRk PZO6gTuaVAvtXAIgtD8 iZSVfH6l2CoEbVoT2OY rvC2NnLAJdolzhLl55j R3xEdXiKxV4ILfjY9Yj tuF1JQOfhKYlUTkwVSQ 9A34yx6I9ZUQhXBWvXF Z5wSW7pT5ipGclyfnoz GVmdDsgdmVydGljYWwt WFpzG874HGIqqByjPyV cBoW7DyP9Ktt0I2WvZr a6CBSjlIspCO1wyVYeL QgpMb0lxRwaeXzpUJ6r KGJkmnonWYGhcM8uLDR djRDagMhrKK5mFIEwsl ber134KrBoNCC9MFDdk ZElL4TfoX8gFbUlLJCa EDFmE4DhcMOwOTlkD65 1HJhpQvG8OOOpmtNdU6 GkGFCihRrfXvN4q1Q3N m76AVHRGCHpyhqntRP+ RZEfZPB8aZuwWTkhAKV zkT0sGBGdF4m7NrGeWk L8FCkqS3NoYKSqjxteN s49nF2iJpAzKoH4AYfb B4NuopD7DSRwhDRkXYd zKNE0B83ci9L0HZSsTT TvSUK4qSK9gW9qqIsic jogbGVmdDsgdmVydGlj FIjePNamS649ODNzeZo nPkZFTUFMRTwvdGQ+PH PrWZQ2qHtyBCfuSPOdz R8sCGUoJ4a1RfYqCoD8 NIuqC7NuUBGxnzrmYh1 6tM6oWxFeRlC7BVxqL8 JjgpV5ZAQliLYvXLlyP ET2U28am6M0VAAwXKAh CQH6cBX3cL1yiOblroz gbGVmdDsgdmVydGljYW niKGuwV019RAZxaYhmY zSlbNKKyBLkABP3IR27 EN86Q1IdIlquxKVdkVC +PHRhYmxlIHdpZHRoPS uwPWDdJvMncKsbCJ1eH j0oIMClOSLvfOatfQNm UiJlg0zbZKAkBBspDZ0 ygOlcA0LewYU4JFOzy8 b8Dr29X84vW5GvfYX+P HDnePW6aSJ9xR1rZdAt YcG1NCkfL339HeCzqVD tGmqur8kwg7zpaBz6Ol RuBMQxxcKhsZplKWE9i 6CnOf33M45dWHznECMs PSIyMCUiIHZhbGlnbj0 vmQ2sYg4+HMUwiGY2qL M9pG2qYdSiCyA4FZljI 282KxCrnTZdHznnO68s Q2PexRL+PEJnBor2HRB wxTmkHU0boCAtIZexKd 1wAFA3IpRaNhZkOXdvN 5IbWLKktpepblqjkOS2 NLPgDWEtiI71Gs2tdZm jRb8uXETtDRZ2OCBuhJ AfR0QrzV4kIjByYBFnD QGiR5SopUQeCRzpK112 BOquZkQ2BQIhdlAbS2O qNWSvoRxfTtI0q4X6Hk 5HeWoqsUPuVE4aZsVbM Ie8S7SkXxh1AREcsZso BO2akGKzYCulZx4hgXy xwQbpJI6fMCVkljxgk6 58RuDsa7usZAKfpTAbG GmyKMP1D71jv0S2ZBPq CUKiAFF7tAZ1gT4wgIr nbjogbGVmdDsgdmVydG lwITrmQMocS302MYEic SwzPmOXGug3F9ReXpo5 FQUefVffGF9qrHXwBJr hVe1efSwdfDruJV5jMK Ulwmbao429KjNhl5vpV YOawJMgYBupXNR2I03x n7C9TCJpZJElVXE4uPR 7qX8oqUjrkbbnpVRdfU sgdmVydGljYWwtYWxpZ 052ZQXfrAzgEf8NXiw8 H3AyQsc5ZAVmuItaNI2 tuBLzRVjeWi6heVowfO thGH8eVSVtdmcdx017N jYgz6oyZMBslNTiMFrl MUN2Z98vo7U2ZTGyGZQ iGPN5lXE1qH3vyBygci ogbGVmdDsgdmVydGljY XysJWbdB839BZNrcFlt PlBheWVyOjwvdGQ+PC9 9rf04N0OfJujoPzr4AA MzBDR9iVT6kV4wVLFwG Ilpz3A1uMZ3S7KyxfBp ci1 (more content not included)... [facility] Consent Formson 09-26-2023 Consent Forms [id number] [id number] Dis[facility] Instructions [id number] 0[facility][id number] 09-25-2023 Anesthesia Note Patient: CARISSA LOZADA Age: 43 years Sex: FEMALE : 1980 Associated Diagnoses: None Author: Angela Abrams MD Postoperative Information Anesthetic utilized: Monitored anesthesia care. Assessment Anesthetic outcome No anesthetic complications noted. Plan Transfer/ Discharge: Patient can be discharged from PACU when criteria met. Condition good. [Electronically Signed on: 09/25/2023 08:49 EST] __ Angela Abrams MD [Verified on: 09/25/2023 08:49 EST] __ Angela Abrams MD [facility] Anesthesia Note Patient: CARISSA LOZADA Age: 43 years Sex: FEMALE : 1980 Associated Diagnoses: None Author: Angela Abrams MD Preoperative Information Anesthesia history: Family [...] history): All Problems Diabetes / SNOMED CT [id number] / Confirmed HTN (hypertension) / SNOMED CT [id number] / Confirmed Histories Family History: No family history items have been selected or recorded. Procedure history: Genital warts (869228922). Cholecystectomy (11383468). Social History Electronic Cigarette/Vaping Assessment Electronic Cigarette [...] Oriented. Review / Management Laboratory Results Plan [place] [employer] Anesthesiologists#( ASA) physical status classification: [...] [Electronically Signed on: 09/25/2023 07:49 EST] __ Angela Abrams MD [Verified on: 09/25/2023 07:49 EST] __ Angela Abrams MD [facility] Inpatient Patient Summaryon 09-25-2023 Inpatient Patient Summary [address] [id number] Patient Discharge Instructions Name: CARISSA LOZADA : 1980 Patient Address: [facility] [address] Primary Care Provider: Name: DIAZ BETTS After you are discharged if you find you have any questions, please, call [phone] ext [phone] to speak to a nurse. Discharge Diagnosis: [...] alcohol and/or drug addiction problems; contact the [facility] 27/03 Crisis Hotline -Text 4HGPS li [phone]. If you received any narcotics, sedation, or [...] business decisions or sign any legal documents [facility] would like to thank you for allowing us to assist you with your healthcare needs. The following includes patient education materials and information regarding your injury/illness. CARISSA LOZADA has been given the following list of follow-up instructions, prescriptions, and patient education materials: Follow-up Instructions With: Address: When: Barry Snowden [address] [place] [id number] Business (1) 10/05/2023 11:00 AM Medications During [...] your doctor pr (more content not included)... Normal [facility] MAGR [facility]operative [facility] MAGR Intra-Op Record Summary Primary Physician: Arianna Miller DO Finalized Date/Time: 09/25/23 08:48:16 Pt. Name: CARISSA LOZADA/Sex: 1980 FEMALE Med Rec #: [id number] Physician: Arianna Miller DO Financial #: [id number] Pt. Type: D Room/Bed: / Admit/Disch: 09/25/23 [...] Andrew DO Role Performed Surgeon - Primary Coremaker Floor Anesthesiologist of Record Time In 09/25/23 08:10:00 09/25/23 08:10:00 09/25/23 08:10:00 Time Out 09/25/23 08:38:00 09/25/23 08:41:00 09/25/23 08:41:00 Procedure Carpal Tunnel Carpal Tunnel Carpal Tunnel Release(Left) Release(Left) Release(Left) Last Modified By: Allyson Alfred RN, Lauren L RN Wheeler, Lauren L RN 09/25/23 08:43:33 09/25/23 08:43:21 09/25/23 08:43:21 Entry 4 Entry 5 Case Attendee Da JJ, Ofelia SECURITY SUPERVISOR BloemerMila SECURITY SUPERVISOR CSFA Role Performed Motor Adjuster Scrub Relief Time In 09/25/23 08:10:00 09/25/23 [...] Participants Aubrie Carlos DO, Lauren L RN, Angela Abrams MD, Da SECURITY SUPERVISOR, Ofelia SECURITY SUPERVISOR CSFA, Mila Wyatt SECURITY SUPERVISOR Last Modified By: Allyson Alfred RN 09/25/23 [...] Press Points (more content not included)... Normal [facility] MAGR Postoperative Recordon 09-25-2023 MAGR Postoperative Record MAGR Phase II Record Summary Primary Physician: Arianna Miller DO Finalized Date/Time: 09/25/23 10:39:28 Pt. Name: ANGELA CARISSA Cano/Sex: 1980 FEMALE Med Rec #: [id number] Physician: Arianna Miller DO Financial #: [id number] Pt. Type: D Room/Bed: / Admit/Disch: 09/25/23 [...] Signed By: Jennyfer Gresham RN 09/25/23 10:39 [facility] Preoperative Recordon 0 09-25-2023 [facility] Preoperative Record [facility] Pre-[facility] Record Summary Primary Physician: Arianna Miller DO Finalized Date/Time: 09/25/23 08:48:38 Pt. Name: ANGELACARISSA/Sex: 1980 FEMALE Med Rec #: [id number] Physician: Arianna Miller DO Financial #: [id number] Pt. Type: D Room/Bed: / Admit/Disch: 09/25/23 [...] consent correct. General Comments: Pt arrives to psw ambulatory. Pt denies cp, sob, cough or flu like symptoms. Pt denies pacemaker/defibilla tor or sleep apnea. Finalized By: Allyson Alfred RN Document Signatures Signed By: Allyson Alfred RN 09/25/23 08:48 [facility] Patient Handouton 09-25-[address] MILLER'S POST OPERATIVE CARPAL TUNNEL INSTRUCTIONS: SURGEON'S WRITTEN INSTRUCTIONS: 1. Keep your hand elevated above your elbow for the first 24 hours after surgery. 2. Wiggle your fingers frequently while awake. 3. DO NOT lift heavy objects or special education inclusion teacher forcefully with your hand. 4. Change your [...] or concerns, please call the office at [phone]. 7. Follow up as scheduled. [facility] Test Serum 1 Preg Serum Internal Control [place] [facility] Comment on above: Performed By: #### 3 [id number] ####[facility] (DEFAULT)[address] [place] [address] Test Serum Qual Negative [facility] Comment on above: Performed By: #### 3 [id number] ####[facility] (DEFAULT)[address] [place] [address] Progress Note - Nurseon 09-04 Progress Note - Nurse Spoke with pt and informed her to be here at 0630 and NPO after MN, she verbalizes understanding. [Electronically Signed on: 09/22/2023 09:47 EST] __ Kalyani Ortiz RN [Verified on: 09/22/2023 09:47 EST] __ Kalyani Ortiz RN [facility] Progress Note - Nurseon 09-04 Progress Note - Nurse Dr Lares reviews p t chart and no new orders were received. [Electronically Signed on: 09/15/2023 11:46 EST] __ Kalyani Ortiz RN [Verified on: 09/15/2023 11:46 EST] __ Jose Ortizsefernando RN [facility] Progress Note - Nurseon 09-04 Progress Note - Nurse PAT review done pe hselby Lares, order received. [Electronically Signed on: 09/14/2023 14:38 EST] __ Katelyn Moon RN [Verified on: 09/14/2023 14:38 EST] __ Katelyn Moon RN [facility] .Auto Diff 1on 09-13-[address] [facility] % 4 % Normal 09-15 [facility] Comment on above: Performed By: #### 7 [id number], [id number], [id number] ####[facility] (DEFAULT)[address] [place] [address] Baso Abs# 0.0 x10 Normal 0.0-0.2 [facility] Comment on above: Performed By: #### 7 868130, [id number], [id number] ####[facility] (DEFAULT)[address] [place] [address]504 Basophils/100 WBC (Bld) 0.8 % Normal 0.2-2.0 [facility] Comment on above: Performed By: #### 7 429486, [id number], [id number] ####[facility] (DEFAULT)[address] [place] [address] 31697 Eos Abs# 0.1 x10 Normal 0.0-0.4 [facility] Comment on above: Performed By: #### 7 029740, [id number], [id number] ####[facility] (DEFAULT)[address] [place] [address] 65294 Eosinophils/100 WBC (Bld) 1.2 % Normal 0.9-4.0 [facility] Comment on above: Performed By: #### 7 256217, [id number], [id number] ####[facility] (DEFAULT)[address] [place] [address] 49773 Lymph Abs# 2.0 x10 Normal 1.3-2.9 [facility] Comment on above: Performed By: #### 7 539329, [id number], [id number] ####[facility] (DEFAULT)[address] [place] [address] 27464 Lymphocytes/100 WBC (Bld) 40 % Normal 14-48 [facility] Comment on above: Performed By: #### 7 729182, [id number], [id number] ####[facility] (DEFAULT)[address] [place] [address] [facility] Abs# 0.2 x10 Normal 0.0-0.8 [facility] Comment on above: Performed By: #### 7 222971, [id number], [id number] ####[facility] (DEFAULT)[address] [place] [address] 12544 Neut Abs# 2.7 x10 Normal 1.5-9.2 [facility] Comment on above: Performed By: #### 7 882588, [id number], [id number] ####[facility] (DEFAULT)[address] [place] [address] 43579 Neutrophils/100 WBC (Bld) 54 % Normal 44-88 [facility] Comment on above: Performed By: #### 7 527757, [id number], [id number] ####[facility] (DEFAULT)[address] [place] [address] 74506 BMP Standardon 09-13-2023 eGFR Non AA >60 Invalid Interpretation Code [facility] Comment on above: Performed By: #### 7 924914, [id number], [id number] ####[facility] (DEFAULT)[address] [place] [address] 60318 eGFR AA >60 Invalid Interpretation Code [facility] Comment on above: Performed By: #### 7 154238, [id number], [id number] ####[facility] (DEFAULT)[address] [place] [address] 31028 Anion gap [Moles/Vol] 10.4 mmol/L Normal 5.0-19.0 [facility] Comment on above: Performed By: #### 7 352924, [id number], [id number] ####[facility] (DEFAULT)[address] [place] [address] 91847 Calcium [Mass/Vol] 8.9 mg/dL Normal 8.9-10.3 [facility] Comment on above: Performed By: #### 7 048713, [id number], [id number] ####[facility] (DEFAULT)[address] [place] [address] 90583 Chloride [Moles/Vol] 102 mmol/L Normal 101-111 [facility] Comment on above: Performed By: #### 7 797206, [id number], [id number] ####[facility] (DEFAULT)[address] [place] [address] 43288 CO2 [Moles/Vol] 27 mmol/L Normal 21-32 [facility] Comment on above: Performed By: #### 7 279991, [id number], [id number] ####[facility] (DEFAULT)[address] [place] [address] 37683 Creatinine [Mass/Vol] 0.76 mg/dL Normal 0.60-1.30 [facility] Comment on above: Performed By: #### 7 204365, [id number], [id number] ####[facility] (DEFAULT)[address] [place] [address] 41858 Glucose [Mass/Vol] 276.0 mg/dL High 74.0-118.0 [facility] Comment on above: Performed By: #### 7 750788, [id number], [id number] ####[facility] (DEFAULT)[address] [place] [address] 96977 Osmolality 282 mOsm/L Invalid Interpretation Code [facility] Comment on above: Performed By: #### 7 973322, [id number], [id number] ####[facility] (DEFAULT)[address] [place] [address] 26106 Potassium [Moles/Vol] 4.4 mmol/L Normal 3.6-5.1 [facility] Comment on above: Performed By: #### 7 000639, [id number], [id number] ####[facility] (DEFAULT)[address] [place] [address] 78523 Sodium [Moles/Vol] 135.0 mmol/L Low 136.0-144.0 [facility] Comment on above: Performed By: #### 7 534328, [id number], [id number] ####[facility] (DEFAULT)[address] [place] [address] 80189 Urea nitrogen [Mass/Vol] 18 mg/dL Normal 8-26 [facility] Comment on above: Performed By: #### 7 890126, [id number], [id number] ####[facility] (DEFAULT)[address] [place] [address] 57046 Urea nitrogen/Creatinine [Mass ratio] 23.6 mg/mg High 4.6-16.2 [facility] Comment on above: Performed By: #### 7 585106, [id number], [id number] ####[facility] (DEFAULT)[address] [place] [address] CBC w/ Auto Diffon Erythrocyte distribution width (RBC) [Ratio] 13.5 % Normal 11.5-15.0 [facility] Comment on above: Performed By: #### 7 806339, [id number], [id number] #### [facility] (DEFAULT) [address] [place] [address] Hematocrit (Bld) [Volume fraction] 42.9 % High 33.7-40.4 [facility] Comment on above: Performed By: #### 7 337283, [id number], [id number] #### [facility] (DEFAULT) [address] [place] [address] Hemoglobin (Bld) [Mass/Vol] 14.1 g/dL Normal 11.3-15.9 [facility] Comment on above: Performed By: #### 7 397004, [id number], [id number] #### [facility] (DEFAULT) [address] [place] [address] Man Diff? Auto Invalid Interpretation Code [facility] Comment on above: Performed By: #### 7 257736, [id number], [id number] #### [facility] (DEFAULT) [address] [place] [address] MCH (RBC) [Entitic mass] 28 pg Normal 24-34 [facility] Comment on above: Performed By: #### 7 627972, [id number], [id number] #### [facility] (DEFAULT) [address] [place] [address] MCHC (RBC) [Mass/Vol] 33 g/dL Normal 26-37 [facility] Comment on above: Performed By: #### 7 837744, [id number], [id number] #### [facility] (DEFAULT) [address] [place] [address] MCV (RBC) [Entitic vol] 87 fL Normal 81-100 [facility] Comment on above: Performed By: #### 7 958230, [id number], [id number] #### [facility] (DEFAULT) [address] [place] [address]304 Platelet 206 x10 Normal 138-427 [facility] Comment on above: Performed By: #### 7 559884, [id number], [id number] #### [facility] (DEFAULT) [address] [place] [address] 72405 Platelet mean volume (Bld) [Entitic vol] 6.9 fL Normal 6.3-10.2 [facility] Comment on above: Performed By: #### 7 491889, [id number], [id number] #### [facility] (DEFAULT) [address] [place] [address] 77198 RBC 4.95 x10 Normal 3.70-5.30 [facility] Comment on above: Performed By: #### 7 942453, [id number], [id number] #### [facility] (DEFAULT) [address] [place] [address]88 WBC 5.1 x10 Normal 3.5-10.5 [facility] Comment on above: Performed By: #### 7 254167, [id number], [id number] #### [facility] (DEFAULT) [address] [place] [address]451 PREG HCG QUALon 01-10-2023 , QUAL Negative Normal NEGATIVE [facility] Comment on above: Performed By: #### P REG #### [facility] [address] [address] [address] Dipika Rapp US PELVIS AND TRANSVAGon [...] by: HARVINDER DELEON Date: 2022-12-26 14:02 Normal [facility] Office Visiton 12-07-2022 Follow-up visit [id number] Carissa Lozada 1980 F Date Provider Department Center 12/07/2022 Juhi-ONEYDA PAZ ORTHO MPORTHO Family History Problem Relation Age of Onset Diabetes Mother Leukemia Father Family Status - Relation Status Age at Mother Father Level of Service:34619 [place] POSTOP FOLLOW UP VISIT RELATED TO ORIGINAL PX (GC) Reason for Visit and Comments: Post-op [483] [facility] HPon 11-21-2022 HP H&P reviewed. The patient was examined and there are no changes to the H&P. [facility] HP H&P reviewed. The patient was examined and there are no changes to the H&P. [facility] NURSNOTEon 11-21-2022 NURSNOTE Patients operative hand warm to touch, and sorin at the bedside to evaluate. Okay for pt to go home, Good capillary refill, soft no swelling noted. Normal [facility] OPNOTEon 11-21-2022 OPNOTE ORTHOPAEDIC SURGERY OPERATIVE REPORT Date of Surgery: 11/21/2022 Surgeon: Robson Paz MD Feltmaker And Weigher: Sorin Farooq MD Preoperative Diagnosis: Left cubital [...] in flexion and extension. Indications For Procedure: Carissa Lozada is a 42 y.o. female with [...] of the procedure(s). Robson Paz MD Normal [facility] POCT GLUCOSE METER UNSOLICIT ED RESULTSon 11-21-2022 Glucose [Mass/Vol] 74 mg/dL Normal 70-105 [facility] Comment on above: Result Comment: [email or web address] Performed By: #### L [id number] #### [facility] ([facility]) [address] [place] [address] Glucose [Mass/Vol] 53 mg/dL Low 70-105 [facility] Comment on above: Result Comment: [email or web address] Performed By: #### L [id number] ####[facility] ([facility])[address] [place] [address] Glucose [Mass/Vol] 73 mg/dL Normal 70-105 [facility] Comment on above: Result Comment: [email or web address] Performed By: #### L [id number] ####[facility] ([facility])[address] [place] [address] Glucose [Mass/Vol] 44 mg/dL Invalid Interpretation Code 70-105 [facility] Comment on above: Result Comment: [email or web address] Critical Value Noted Performed By: #### L [id number] ####[facility] ([facility])[address] [place] [address] Glucose [Mass/Vol] 53 mg/dL Low 70-105 [facility] Comment on above: Result Comment: [email or web address] Performed By: #### L [id number] ####[facility] ZINA)[place] [address] on 11-04-2022 HP ---- Attestation signed by Robson [...] presents with Left Arm - Pain 11/04/22 Carissa Lozada is a 42 y.o. 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 Results described above. Assessment/Plan Carissa Lozada is a 42 y.o. year old [...] surgical intervention - Instructed patient that our salesperson surgical appliances reach out regarding future surgical date - Surgery will be performed under regional anesthesia -Return to clinic for surgical intervention -Call the orthopedic office any questions or concerns Michael Ward MD Orthopedic Surgery Resident Physician Pager: [phone] 11/04/22 12:35 PM By using the attestations [...] an additional personal documentation from me. Normal [facility] Office Visiton 11-04-2022 Follow-up visit [id number] Carissa Lozada 1980 F Date Provider Department Center 11/04/2022 Juhi-ONEYDA PAZ ORTHO MPORTHO Family History Problem Relation Age of Onset Diabetes Mother Leukemia Father Family Status - Relation Status Age at Mother Father Level of Service:04529 [place] OFFICE/OUTPATIENT ESTABLISHED LOW MDM 20-29 MIN Reason for Visit and Comments: Pain [136] Normal [facility] FSHon 09-15-2022 FSH 39.6 mIU/mL Normal [facility] Comment on above: Result Comment: Adul t Female: Follicular phase 3.5 - 12.5 Ovulation phase 4.7 - 21.5 Luteal phase 1.7 - 7.7 Postmenopausal 25.8 - 134.8 Performed By: #### L BCFS #### [facility] [address] [place], [place] [address] Dr. Dipika Rapp LUTEINIZING HORMONE (LH)on 0 09-15-2022 LH 32.9 mIU/mL Normal [facility] Comment on above: Result Comment: Adul t Female: Follicular phase 2.4 - 12.6 Ovulation phase 14.0 - 95.6 Luteal phase 1.0 - 11.4 Postmenopausal 7.7 - 58.5 Performed By: #### L BCLH #### [facility] [address] [place], [place] [address] Dr. Dipika Rapp PROLACTINon 09-15-2022 Prolactin 4.6 ng/mL Critically low 4.8-23.3 [facility] Comment on above: Performed By: #### P ROLAC ####[facility] [address] [place], [place] [address]ZpDr. Dipika Rapp CBC AUTO DIFFon 09-14-2022 BASO # 0.0 103/ul Normal 0.0-0.1 [facility] Comment on above: Performed By: #### C BC ####[facility] [address] [address]Dr. Dipika Rapp Basophils/100 WBC (Bld) 0.4 % Normal 0.2-2.0 [facility] Comment on above: Performed By: #### C BC ####[facility] [address] [address]Dr. Dipika Rapp EO # 0.1 103/ul Normal 0.0-0.7 [facility] Comment on above: Performed By: #### C BC ####[facility] [address] [address]Dr. Dipika Rapp Eosinophils/100 WBC (Bld) 0.8 % Critically low 0.9-7.0 [facility] Comment on above: Performed By: #### C BC ####[facility] [address] [place], [place] [address]Dr. Dipika Rapp Erythrocyte distribution width (RBC) [Ratio] 12.5 % Normal 11.0-15.0 [facility] Comment on above: Performed By: #### C BC ####[facility] [address] [place], [place] [address]Dr. Dipika Rapp Hematocrit (Bld) [Volume fraction] 46.2 % Normal 36.0-48.0 [facility] Comment on above: Performed By: #### C BC ####[facility] [address] [place], [place] [address]Dr. Dipika Rapp Hemoglobin (Bld) [Mass/Vol] 14.9 g/dL Normal 12.0-16.0 [facility] Comment on above: Performed By: #### C BC ####[facility] [address] [place], [place] [address]Dr. Dipika Rapp IG # 0.04 10e3/ul Critically high 0.00-0.03 [facility] Comment on above: Performed By: #### C BC ####[facility] [address] [place], [place] [address]Dr. Dipika Rapp IG % 0.5 % Normal 0.0-0.5 [facility] Comment on above: Performed By: #### C BC ####[facility] [address] [address]Dr. Dipika Rapp LYMPH # 2.8 103/ul Normal 1.2-3.8 [facility] Comment on above: Performed By: #### C BC ####[facility] [address] [address]Dr. Dipika Rapp Lymphocytes/100 WBC (Bld) 34.7 % Normal 20.5-60.0 [facility] Comment on above: Performed By: #### C BC ####[facility] [address] [address]Dr. Dipika Rapp MANUAL DIFF REQ NO Normal [facility] Comment on above: Performed By: #### C BC ####[facility] [address] [address]Dr. Dipika Rapp MCH (RBC) [Entitic mass] 28.3 pg Normal 26.7-34.0 [facility] Comment on above: Performed By: #### C BC ####[facility] [address] [address]Dr. Dipika Rapp MCHC (RBC) [Mass/Vol] 32.3 g/dL Normal 29.9-35.2 [facility] Comment on above: Performed By: #### C BC ####[facility] [address] [address]Dr. Dipika Rapp MCV (RBC) [Entitic vol] 87.7 fL Normal 81.0-99.0 [facility] Comment on above: Performed By: #### C BC ####[facility] [address] [address]Dr. Dipika Rapp MONO # 0.4 103/ul Normal 0.3-0.8 [facility] Comment on above: Performed By: #### C BC ####[facility] [address] [address]Dr. Dipika Rapp Monocytes/100 WBC (Bld) 5.0 % Normal 1.7-12.0 [facility] Comment on above: Performed By: #### C BC ####[facility] [address] [address]DrBrian Mendezzackary Rapp NEUT # 4.7 103/ul Normal 1.4-6.5 [facility] Comment on above: Performed By: #### C BC ####[facility] [address] [place], [place] [address]PnBrian Rapp Neutrophils/100 WBC (Bld) 58.6 % Normal 43.0-75.0 [facility] Comment on above: Performed By: #### C BC ####[facility] [address] [address]DrBrian Rapp Platelet mean volume (Bld) [Entitic vol] 9.1 fL Critically low 9.5-13.5 [facility] Comment on above: Performed By: #### C BC ####[facility] [address] [address]DrBrian Rapp PLT 194 103/ul Normal 150-450 [facility] Comment on above: Performed By: #### C BC ####[facility] [address] [place] [address]DrBrian Rapp RBC 5.27 106/ul Normal 4.20-5.40 [facility] Comment on above: Performed By: #### C BC ####[facility] [address] [address]DrBrian Rapp WBC 8.0 103/ul Normal 4.0-11.0 [facility] Comment on above: Performed By: #### C BC ####[facility] [address] [place] [address]Dr. Dipika Rapp FREE T4on 09-14-2022 Free T4 [Mass/Vol] 1.04 ng/dL Normal 0.76-1.46 [facility] Comment on above: Performed By: #### F T4 #### [facility] [address] [place], [place] [address] Dr. Dipika Rapp TSHon 09-14-2022 TSH 1.420 uIU/mL Normal 0.358-3.740 [facility] Comment on above: Performed By: #### T SH #### [facility] [address] [place] [address] Dr. Dipika Rapp PAP ACOG PANEL 2: 30 to 65on 07-25-2022 . . Normal [facility] Comment on above: Result Comment: Perf ormed at: WB Performed By: #### [id number] #### [facility] [address] [place] [address] Dr. Dipika Rapp Age Gdln ACOG Testing 30-65 Normal [facility] Comment on above: Performed By: #### [id number] #### [facility] [address] [place] [address] Dr. Dipika Rapp DIAGNOSIS: Comment Normal [facility] Comment on above: Result Comment: NEGA TIVE FOR INTRAEPITHELIAL LESION OR MALIGNANCY. THIS SPECIMEN WAS RESCREENED PART OF OUR RECEIVING TEAM MEMBER PROGRAM. Performed at: WB Performed By: #### [id number] #### [facility] [address] [place] [address] Dr. Dipika Rapp HPV Aptima Negative Normal Negative [facility] Comment on above: Result Comment: This nucleic acid amplification test detects fourteen high-risk HPV types (16,18,31,33,35,39,45,51,52,56,58,59,66,68) without differentiation. Performed at: =G Performed By: #### [id number] #### [facility] [address] [place] [address] Dr. Dipika Rapp HPV Genotype Reflex Comment Normal [facility] Comment on above: Result Comment: Crit eria not met, HPV Genotype not performed. Performed at: WB Performed By: #### [id number] #### [facility] [address] [place] [address] Dr. Dipika Rapp Methodology: Comment Normal [facility] Comment on above: Result Comment: This liquid based ThinPrep(R) pap test was screened with the use of an image guided system. Performed at: WB Performed By: #### [id number] #### [facility] [address] [place] [address] Dr. Dipika Rapp Note: Comment Normal [facility] Comment on above: Result Comment: The Pap smear is a screening test designed to aid in the detection of premalignant and malignant conditions of the uterine cervix. It is not a diagnostic procedure and should not be used as the sole means of detecting cervical cancer. Both false-positive and false-negative reports do occur. . Performed at: WB Performed By: #### [id number] #### [facility] [address] [address] [address] Dipika Rapp Performed by: Comment Normal [facility] Comment on above: Result Comment: Luna Zelaya, Soccer Player (ASCP) Performed at: WB Performed By: #### 4 [id number] #### [facility] [address] [address] [address] Dipika Rapp QC reviewed by: Comment Normal [facility] Comment on above: Result Comment: Светлана Burger, Supervisory Soccer Player (ASCP) Performed at: WB Performed By: #### [id number] #### [facility] [address] [address] [address] Dipika Rapp Specimen adequacy: Comment Normal [facility] Comment on above: Result Comment: Sati sfactory for evaluation. Endocervical and/or squamous metaplastic cells (endocervical component) are present. Performed at: WB Performed By: #### [id number] #### [facility] [address] [address] [address] Dipika Rapp MG MAMM SCREEN 3D DINAH CADon 06-22-2022 MG MAMM SCREEN 3D DINAH CAD Patient: CARISSA LOZADA Exam Date: 06/22/2022 : 1980 Gender:F Ordering : DR FELIZ BENZ . Admission #: [id number] Family : Order #: [id number] CLICK HERE TO VIEW EXAM RADIOLOGY REPORT [...] Treatments None Family Cancers None LOCATION: [facility] BREAST COMPOSITION: Scattered areas fibroglandular density. FINDINGS: [...] Deleon M.D. on 06/22/2022 at 15:52 Normal [facility] GLYCOHEMOGLOBIN A1Con 2021 ADA RECOMMENDATION SEE BELOW Normal [facility] Comment on above: Result Comment: ADA RECOMMENDED LIMIT 4.0 - 6.0 ADA THERAPEUTIC TARGET < 7.0 ACTION SUGGESTED > 7.0 Performed By: #### A 1C #### [facility] [address] [address] [address] Dipika Rapp Glucose [Mass/Vol] 163 mg/dL Normal [facility] Comment on above: Performed By: #### A 1C #### [facility] [address] [address] [address] Dipika Rapp HbA1c (Bld) [Mass fraction] 7.3 % Critically high 4.5-6.2 [facility] Comment on above: Performed By: #### A 1C #### [facility] [address] [address] [address] Dipika Rapp CBC AUTO DIFFon 01-23-2022 BASO # 0.0 103/ul Normal 0.0-0.1 [facility] Comment on above: Performed By: #### C BC ####[facility] [address] [address]Dr. Dipika Rapp Basophils/100 WBC (Bld) 0.3 % Normal 0.2-2.0 [facility] Comment on above: Performed By: #### C BC ####[facility] [address] [address]Dr. Dipika Rapp EO # 0.2 103/ul Normal 0.0-0.7 [facility] Comment on above: Performed By: #### C BC ####[facility] [address] [address]Dr. Dipika Rapp Eosinophils/100 WBC (Bld) 1.7 % Normal 0.9-7.0 [facility] Comment on above: Performed By: #### C BC ####[facility] [address] [address]Dr. Dipika Rapp Erythrocyte distribution width (RBC) [Ratio] 12.0 % Normal 11.0-15.0 [facility] Comment on above: Performed By: #### C BC ####[facility] [address] [address]Dr. Dipika Rapp Hematocrit (Bld) [Volume fraction] 43.0 % Normal 36.0-48.0 [facility] Comment on above: Performed By: #### C BC ####[facility] [address] [address]Dr. Dipika Rapp Hemoglobin (Bld) [Mass/Vol] 13.6 g/dL Normal 12.0-16.0 [facility] Comment on above: Performed By: #### C BC ####[facility] [address] [address]Dr. Dipika Rapp IG # 0.02 10e3/ul Normal 0.00-0.03 [facility] Comment on above: Performed By: #### C BC ####[facility] [address] [address]Dr. Dipika Rapp IG % 0.2 % Normal 0.0-0.5 [facility] Comment on above: Performed By: #### C BC ####[facility] [address] [address]Dr. Dipika Rapp LYMPH # 3.5 103/ul Normal 1.2-3.8 [facility] Comment on above: Performed By: #### C BC ####[facility] [address] [address]Dr. Dipika Rapp Lymphocytes/100 WBC (Bld) 39.2 % Normal 20.5-60.0 [facility] Comment on above: Performed By: #### C BC ####[facility] [address] [address]Dr. Dipika Rapp MANUAL DIFF REQ NO Normal [facility] Comment on above: Performed By: #### C BC ####[facility] [address] [address]Dr. Dipika Rapp MCH (RBC) [Entitic mass] 28.6 pg Normal 26.7-34.0 [facility] Comment on above: Performed By: #### C BC ####[facility] [address] [place], [place] [address]Dr. Dipika Rapp MCHC (RBC) [Mass/Vol] 31.6 g/dL Normal 29.9-35.2 [facility] Comment on above: Performed By: #### C BC ####[facility] [address] [place], [place] [address]Dr. Dipika Rapp MCV (RBC) [Entitic vol] 90.3 fL Normal 81.0-99.0 [facility] Comment on above: Performed By: #### C BC ####[facility] [address] [place], [place] [address]Dr. Dipika Rapp MONO # 0.5 103/ul Normal 0.3-0.8 [facility] Comment on above: Performed By: #### C BC ####[facility] [address] [place], [place] [address]Dr. Dipika Rapp Monocytes/100 WBC (Bld) 5.8 % Normal 1.7-12.0 [facility] Comment on above: Performed By: #### C BC ####[facility] [address] [place], [place] [address]Dr. Dipika Rapp NEUT # 4.7 103/ul Normal 1.4-6.5 [facility] Comment on above: Performed By: #### C BC ####[facility] [address] [place], [place] [address]Dr. Dipika Rapp Neutrophils/100 WBC (Bld) 52.8 % Normal 43.0-75.0 [facility] Comment on above: Performed By: #### C BC ####[facility] [address] [address]Dr. Dipika Rapp Platelet mean volume (Bld) [Entitic vol] 9.3 fL Critically low 9.5-13.5 [facility] Comment on above: Performed By: #### C BC ####[facility] [address] [address]Dr. Dipika Rapp PLT 219 103/ul Normal 150-450 [facility] Comment on above: Performed By: #### C BC ####[facility] [address] [address]Dr. Dipika Rapp RBC 4.76 106/ul Normal 4.20-5.40 [facility] Comment on above: Performed By: #### C BC ####[facility] [address] [address]Dr. Dipika Rapp WBC 8.8 103/ul Normal 4.0-11.0 [facility] Comment on above: Performed By: #### C BC ####[facility] [address] [address]Dr. Dipika Rapp POINT OF CARE GLUCOSEon 01-03 Glucose [Mass/Vol] 51 mg/dL Critically low 74-106 [facility] Comment on above: Performed By: #### P OCGLUC #### [facility] [address] [address] [address] Dipika Rapp PROF 14(COMP METB)on 022 Albumin [Mass/Vol] 3.1 g/dL Critically low 3.4-5.0 [facility] Comment on above: Performed By: #### C MP #### [facility] [address] [address] [address] Dipika Rapp Albumin/Globulin [Mass ratio] 0.8 {ratio} Normal [facility] Comment on above: Performed By: #### C MP #### [facility] [address] [address] [address] Dipika Rapp ALP [Catalytic activity/Vol] 86 U/L Normal 46-116 [facility] Comment on above: Performed By: #### C MP #### [facility] [address] [place] [address] Dr. Dipika Rapp ALT [Catalytic activity/Vol] 39 U/L Normal 14-59 [facility] Comment on above: Performed By: #### C MP #### [facility] [address] [address] [address] Dipika Rapp Anion gap [Moles/Vol] 10.8 mmol/L Normal Th e [facility] Comment on above: Performed By: #### C MP #### [facility] [address] [place] [address] Dr. Dipika Rapp AST [Catalytic activity/Vol] 11 U/L Critically low 15-37 [facility] Comment on above: Performed By: #### C MP #### [facility] [address] [place] [address] Dr. Dipika Rapp Bilirubin [Mass/Vol] 0.1 mg/dL Critically low 0.2-1.0 [facility] Comment on above: Performed By: #### C MP #### [facility] [address] [place] [address] Dr. Dipika Rapp Calcium [Mass/Vol] 9.0 mg/dL Normal 8.5-10.1 [facility] Comment on above: Performed By: #### C MP #### [facility] [address] [place] [address] Dr. Dipika Rapp Chloride [Moles/Vol] 104 mmol/L Normal 98-107 [facility] Comment on above: Performed By: #### C MP #### [facility] [address] [address] [address] Dipika Rapp CO2 [Moles/Vol] 29.4 mmol/L Normal 21.0-32.0 [facility] Comment on above: Performed By: #### C MP #### [facility] [address] [place] [address] Dr. Dipika Rapp Creatinine [Mass/Vol] 0.67 mg/dL Normal 0.55-1.02 [facility] Comment on above: Performed By: #### C MP #### [facility] [address] [address] [address] Dipika Rapp EGFR-AF ZAMBIAN >60 Normal >=60 [facility] Comment on above: Performed By: #### C MP #### [facility] [address] [address] [address] Dipika Rapp EGFR-NON AF ZAMBIAN >60 Normal >=60 [facility] Comment on above: Performed By: #### C MP #### [facility] [address] [address] [address] Dipika Rapp Globulin (S) [Mass/Vol] 3.9 g/dL Normal [facility] Comment on above: Performed By: #### C MP #### [facility] [address] [address] [address] Dipika Rapp Glucose [Mass/Vol] 142 mg/dL Critically high 74-106 [facility] Comment on above: Performed By: #### C MP #### [facility] [address] [address] [address] Dipika Rapp Potassium [Moles/Vol] 4.2 mmol/L Normal 3.5-5.1 [facility] Comment on above: Performed By: #### C MP #### [facility] [address] [address] [address] Dipika Rapp Protein [Mass/Vol] 7.0 g/dL Normal 6.4-8.2 [facility] Comment on above: Performed By: #### C MP #### [facility] [address] [address] [address] Dipika Rapp Sodium [Moles/Vol] 140 mmol/L Normal 136-145 [facility] Comment on above: Performed By: #### C MP #### [facility] [address] [address] [address] Dipika Rapp Urea nitrogen [Mass/Vol] 22.0 mg/dL Critically high 7.0-18.0 [facility] Comment on above: Performed By: #### C MP #### [facility] [address] [place], [place] [address] Dr. Dipika Rapp Urea nitrogen/Creatinine [Mass ratio] 32.8 mg/mg Normal [facility] Comment on above: Performed By: #### C MP #### [facility] [address] [place], [place] [address] Dr. Dipika Rapp Cult,Aerobe/Anaerobeon 10-06 Cult,Aerobe/Anaerobe Specimen Description .ULCER RT ARM Special Requests NOT REPORTED Direct Exam FEW NEUTROPHILS NO BACTERIA SEEN Culture NO GROWTH 5 DAYS Report Status FINAL 10/06/[address] [facility] Comment on above: Performed By: #### U PRATIBHA Phipps #### [facility] [address] [place] [address] Injection Molding Process Technician: Brandan Ugalde MD Smear to Pathologiston 10-04 Smear to Pathologist SEE REPORT Normal [facility] Comment on above: Result Comment: REVIEWING PATHOLOGIST: ELECTRONICALLY SIGNED. HORACIO VILA M.D. Performed By: #### P TT, FIB, PT, LYTE, DBILI, TBIL, RETCT, CBC, LD, HAPT, PATH ####[facility] [address] [place], [place] [id number] Lab Director: Brandan Ugalde MD Basic Metabolic Panelon 09-06 Anion gap [Moles/Vol] 14 mmol/L 9 - 17 mmol/L [employer] Calcium [Mass/Vol] 8.3 mg/dL Low 8.6 - 10.4 mg/dL [employer] Chloride [Moles/Vol] 111 mmol/L High 98 - 107 mmol/L [employer] CO2 [Moles/Vol] 19 mmol/L Low 20 - 31 mmol/L [employer] Creatinine [Mass/Vol] 1.31 mg/dL High 0.50 - 0.90 mg /dL [employer] [facility] GFR 54 mL/min Low >60 [facility] GFR Non- 45 mL/min Low >60 [employer] GFR/1.73 sq M.predicted MDRD (S/P/Bld) [Vol rate/Area] [facility] [employer] Comment on above: Average GFR for 40-4 9 years old: 99 mL/min/1.73sq m Chronic Kidney Disease: <60 mL/min/1.73sq m Kidney failure: <15 mL/min/1.73sq m eGFR calculated using average adult body mass. Additional eGFR calculator available at: http://www.Beijingyicheng/multiple_crcl_2012.htm GFR/1.73 sq M.predicted MDRD (S/P/Bld) [Vol rate/Area] NOT REPORTED [facility] [employer] Glucose [Mass/Vol] 105 mg/dL High 70 - 99 mg/dL [facility] Interpretation and review of laboratory results Abnormal [facility] [employer] Potassium [Moles/Vol] 3.7 mmol/L 3.7 - 5.3 mmol /L [facility] [employer] Sodium [Moles/Vol] 144 mmol/L 135 - 144 mmol/L [facility] [employer] Urea nitrogen (BldV) [Mass/Vol] 19 mg/dL 6 - 20 mg/dL [facility] [employer] Urea nitrogen/Creatinine (Bld) [Mass ratio] NOT REPORTED [facility] [employer] Basic Metabolic Profon 10-03 (cont.) Normal [facility] Comment on above: Result Comment: Aver age GFR for 40-49 years old: 99 mL/min/1.73sq m Chronic Kidney Disease: <60 mL/min/1.73sq m Kidney failure: <15 mL/min/1.73sq m eGFR calculated using average adult body mass. Additional eGFR calculator available at: http://www.Beijingyicheng/multiple_crcl_2011.htm Performed By: #### U A, COLLEENICAO #### [facility] [address] [place] [address] Injection Molding Process Technician: Brandan Ugalde MD Anion gap [Moles/Vol] 14 mmol/L Normal - [facility] Comment on above: Performed By: #### U A, UMICAO #### [facility] [address] [place] [address] Injection Molding Process Technician: Brandan Ugalde MD Calcium [Mass/Vol] 8.3 mg/dL Low 8.6-10.[address] [facility] Comment on above: Performed By: #### PRATIBHA Claudio #### [facility] [address] [place] [address] Injection Molding Process Technician: Brandan Ugalde MD Chloride [Moles/Vol] 111 mmol/L High 98-107 [facility] Comment on above: Performed By: #### PRATIBHA Claudio #### [facility] [address] [place] [address] Injection Molding Process Technician: Brandan Ugalde MD CO2 [Moles/Vol] 19 mmol/L Low 20-[address] [facility] Comment on above: Performed By: #### PRATIBHA Claudio #### [facility] [address] [place] [address] Injection Molding Process Technician: Brandan Ugalde MD Creatinine [Mass/Vol] 1.31 mg/dL High 0.50-0.90 [facility] Comment on above: Performed By: #### PRATIBHA Claudio #### [address] [address] Injection Molding Process Technician: Brandan Ugalde MD GFR, Amer 54 mL/min Low >60 [facility] Comment on above: Performed By: #### PRATIBHA Claudio #### [facility] [address] [place] [address] Injection Molding Process Technician: Brandan Ugalde MD GFR,non Amer 45 mL/min Low >60 [facility] Comment on above: Performed By: #### PRATIBHA Claudio #### [facility] [address] [place] [address] Injection Molding Process Technician: Brandan Ugalde MD Glucose [Mass/Vol] 105 mg/dL High 70-[address] [facility] Comment on above: Performed By: #### PRATIBHA Claudio #### [facility] [address] [place] [address] Injection Molding Process Technician: Brandan Ugalde MD Potassium [Moles/Vol] 3.7 mmol/L Normal 3.7-5.3 [facility] Comment on above: Performed By: #### U APRATIBHA #### [facility] [place] [address] Injection Molding Process Technician: Brandan Ugalde MD Sodium [Moles/Vol] 144 mmol/L Normal 135-[address] [facility] Comment on above: Performed By: #### U APRATIBHA #### [facility] [address] [place] [address] Injection Molding Process Technician: Brandan Ugalde MD Urea nitrogen [Mass/Vol] 19 mg/dL Normal 6-[address] [facility] Comment on above: Performed By: #### U APRATIBHA #### [facility] [address] [place] [address] Injection Molding Process Technician: Brandan Ugalde MD BUN/CRE Ratio NOT REPORTED Normal -[address] [facility] Comment on above: Performed By: #### U APRATIBHA #### [facility] [address] [place] [address] Injection Molding Process Technician: Brandan Ugalde MD Staging: NOT REPORTED Normal [facility] Comment on above: Performed By: #### U APRATIBHA #### [facility] [place] [address] Injection Molding Process Technician: Brandan Ugalde MD CBC auto differentialon 09-06 [facility] Eos # 0.22 [facility] th Absolute Immature Granulocyte 0.00 [employer] Absolute Lymph # 2.04 [facility] [address] [facility] # 0.72 [facility] Basophils (Bld) [#/Vol] 0.00 10*3/uL [employer] Basophils/100 WBC (Bld) 0 % 0 - 2 % [facility] Differential Type NOT REPORTED [facility] Eosinophils/100 WBC (Bld) 4 % 1 - 4 % [facility] Hematocrit (Bld) [Volume fraction] 34.4 % Low 36.3 - 47.1 % [facility] [employer] Hemoglobin.gastrointe stinal spec 1 Ql (Stl) 11.5 g/dL Low 11.9 - 15.1 g/dL [facility] [employer] [employer] Immature granulocytes/100 WBC (Bld) 0 % 0 [facility] [employer] Interpretation and review of laboratory results Abnormal [facility] [employer] Lymphocytes/100 WBC (Bld) 37 % 24 - 44 % [facility] [employer] [employer] MCH (RBC) [Entitic mass] 28.6 pg 25.2 - 33.5 pg [facility] [employer] [employer] MCHC (RBC) [Mass/Vol] 33.4 g/dL 28.4 - 34.8 g/ dL MCV (RBC) [Entitic vol] 85.6 fL 82.6 - 102.9 fL [facility] [employer] [employer] Monocytes/100 WBC (Bld) 13 % High 1 - 7 % [facility] [employer] [employer] Morphology Dontrell (Bld) [Interp] Normal [facility] [employer] NRBC Automated 0.0 0.0 per 100 WBC [facility] [employer] [employer] Platelet distribution width (Bld) [Ratio] 13.5 % 11.8 - 14.4 % [facility] [employer] Platelet Estimate NOT REPORTED [facility] [employer] Platelet mean volume (Bld) [Entitic vol] NOT REPORTED 8.1 - 13.5 fL [facility] [employer] [employer] Platelets (Bld) [#/Vol] See Reflexed IPF Result [facility] [employer] [employer] RBC (Bld) [#/Vol] 4.02 10*6/uL 3.95 - 5.11 m/uL [facility] [employer] [employer] RBC (Bld) [#/Vol] NOT REPORTED [facility] [employer] [employer] Segmented neutrophils/100 WBC (Bld) 46 % 36 - 66 % [facility] [employer] [facility] [#/Vol] 5.5 10*3/uL [facility] [employer] [employer] WBC (Bld) [#/Vol] NOT REPORTED [facility] CBC with Diffon 10-03-2021 Abs. Basophil 0.00 k/uL Normal 0.0-0.[address] [facility] Comment on above: Performed By: #### U PRATIBHA Phipps #### [employer] [address] [place] [address] Injection Molding Process Technician: Brandan Ugalde MD Abs.Imm.Granulocyte 0.00 k/uL Normal 0.00-0.[address] [facility] Comment on above: Performed By: #### U A UMICAO #### [address] [address] Injection Molding Process Technician: Brandan Ugalde MD Abs.Neutrophil (Seg) 2.52 k/uL Normal 1.8-7.7 [facility] Comment on above: Performed By: #### U A UMICAO #### [address] [address] Injection Molding Process Technician: Brandan Ugalde MD Basophils/100 WBC (Bld) 0 % Normal 0-[address] [facility] Comment on above: Performed By: #### U A UMICAO #### [address] [address] Injection Molding Process Technician: Brandan Ugalde MD Eosinophils (Bld) [#/Vol] 0.22 10*3/uL Normal 0.0-0.[address] [facility] Comment on above: Performed By: #### U A UMICAO #### [address] [address] Injection Molding Process Technician: Brandan Ugalde MD Eosinophils/100 WBC (Bld) 4 % Normal 1-[address] [facility] Comment on above: Performed By: #### U A, UMICAO #### [address] [address] Injection Molding Process Technician: Brandan Ugalde MD Immature granulocytes/100 WBC (Bld) 0 % Normal [address] [facility] Comment on above: Performed By: #### U A, UMICAO #### [address] [address] Injection Molding Process Technician: Brandan Ugalde MD Lymphocytes (Bld) [#/Vol] 2.04 10*3/uL Normal 1.0-4.[address] [facility] Comment on above: Performed By: #### U PRATIBHA Phipps #### [address] [address] Injection Molding Process Technician: Brandan Ugalde MD Lymphocytes/100 WBC (Bld) 37 % Normal 24-[address] [facility] Comment on above: Performed By: #### U COLLEEN PhippsICAO #### [address] [address] Injection Molding Process Technician: Brandan Ugalde MD Monocytes (Bld) [#/Vol] 0.72 10*3/uL Normal 0.1-0.[address] [facility] Comment on above: Performed By: #### FRANK ClaudioO #### [address] [address] Injection Molding Process Technician: Brandan Ugalde MD Monocytes/100 WBC (Bld) 13 % High 1-[address] [facility] Comment on above: Performed By: #### U FRANK PhippsO #### [address] [address] Injection Molding Process Technician: Brandan Ugalde MD Morphology Dontrell (Bld) [Interp] Normal Normal [facility] Comment on above: Performed By: #### U COLLEEN PhippsICAO #### [address] [address] Injection Molding Process Technician: Brandan Ugalde MD Neutrophil (Seg) 46 % Normal 36-66 [facility] Comment on above: Performed By: #### U ACOLLEENICAO #### [address] [address] Injection Molding Process Technician: Brandan Ugalde MD Erythrocyte distribution width (RBC) [Ratio] 13.5 % Normal 11.8-14.[address] [facility] Comment on above: Performed By: #### U A UMICAO #### [facility] [address] [place] [address] Injection Molding Process Technician: Brandan Ugalde MD Hematocrit (Bld) [Volume fraction] 34.4 % Low 36.3-47.[address] [facility] Comment on above: Performed By: #### U A, UMICAO #### [facility] [address] [place] [address] Injection Molding Process Technician: Brandan Ugalde MD Hemoglobin (Bld) [Mass/Vol] 11.5 g/dL Low 11.9-15.[address] [facility] Comment on above: Performed By: #### U A, COLLEENICAO #### [facility] [address] [place] [address] Injection Molding Process Technician: Brandan Ugalde MD MCH (RBC) [Entitic mass] 28.6 pg Normal 25.2-33.[address] [facility] Comment on above: Performed By: #### U A, FRANKO #### [address] [address] Injection Molding Process Technician: Brandan Ugalde MD MCHC (RBC) [Mass/Vol] 33.4 g/dL Normal 28.4-34.8 [facility] Comment on above: Performed By: #### U A, COLLEENICAO #### [facility] [address] [place] [address] Injection Molding Process Technician: Brandan Ugalde MD MCV (RBC) [Entitic vol] 85.6 fL Normal 82.6-102.[address] [facility] Comment on above: Performed By: #### U A, UMICAO #### [facility] [address] [place] [address] Injection Molding Process Technician: Brandan Ugalde MD NRBC Automated 0.0 per 100 WBC Normal 0.[address] [facility] Comment on above: Performed By: #### U A, UMICAO #### [address] [place] [address] Injection Molding Process Technician: Brandan Ugalde MD Platelet Count See Reflexed IPF Result Normal 138-[address] [facility] Comment on above: Performed By: #### U A, UMICAO #### [facility] [address] [place] [address] Injection Molding Process Technician: Brandan Ugalde MD RBC (Bld) [#/Vol] 4.02 10*6/uL Normal 3.95-5.[address] [facility] Comment on above: Performed By: #### U A, UMICAO #### [address] [address] Injection Molding Process Technician: Brandan Ugalde MD WBC (Bld) [#/Vol] 5.5 10*3/uL Normal 3.5-11.[address] [facility] Comment on above: Performed By: #### U A, UMICAO #### [address] [address] Injection Molding Process Technician: Brandan Ugalde MD Auto Diff Performed NOT REPORTED Normal [facility] Comment on above: Performed By: #### U A, UMICAO #### [address] [address] Injection Molding Process Technician: Brandan Ugalde MD MPV NOT REPORTED Normal 8.1-13.[address] [facility] Comment on above: Performed By: #### U A, UMICAO #### [facility] [address] [place] [address] Injection Molding Process Technician: Brandan Ugalde MD Platelet Comment NOT REPORTED Normal [facility] Comment on above: Performed By: #### U A, UMICAO #### [facility] [address] [place] [address] Injection Molding Process Technician: Brandan Ugalde MD RBC morphology finding Nom (Bld) NOT REPORTED Normal [facility] Comment on above: Performed By: #### U A, UMICAO #### [facility] [address] [place], [place] [id number] Injection Molding Process Technician: Brandan Ugalde MD WBC Morphology NOT REPORTED Normal [facility] Comment on above: Performed By: #### U A, UMICAO #### [facility] [address] [place], [place] [id number] Injection Molding Process Technician: Brandan Ugalde MD Cult, Bloodon 10-03-2021 Cult, Blood Specimen Description .BLOOD Special Requests L HAND 2ML Culture NO GROWTH 5 DAYS Report Status FINAL 10/03/[address] [facility] Comment on above: Performed By: #### U A, UMICAO #### [employer] [address] [place] [address] Injection Molding Process Technician: Brandan Ugalde MD Cult,Bloodon 10-03-2021 Cult,Blood Specimen Description .BLOOD Special Requests NOT REPORTED Culture NO GROWTH 5 DAYS Report Status FINAL 10/03/[address] [facility] Comment on above: Performed By: #### U A, UMICAO #### [employer] [address] [place], [place] [id number] Injection Molding Process Technician: Brandan Ugalde MD Culture, Blood 1on 2 Bacteria identified Cx Nom (Unsp spec) NO GROWTH 5 DAYS [facility] Special Requests NOT REPORTED Specimen Description .BLOOD [facility] Culture, Blood 2on 2 Bacteria identified Cx Nom (Unsp spec) NO GROWTH 5 DAYS [facility] [employer] Special Requests L HAND 2ML [facility] Specimen Description .BLOOD [facility] Immature Platelet Fractionon 10-03-2021 Platelet, Fluorescence Platelet clumps present, count appears adequate. Comment on above: ORDERED BY LAB Platelet, Immature Fraction NOT REPORTED 1.1 - 10.3 % [facility] PLT, Immature Fract.on 10-03 Platelet, Fluoresc. Platelet clumps present, count appears adequate. Normal 138-[address] [facility] Comment on above: Result Comment: ORDE RED BY LAB Performed By: #### U Desire, PRATIBHA #### [employer] [address] [place], [place] [id number] Injection Molding Process Technician: Brandan Ugalde MD PLT, Immature Fract. NOT REPORTED Normal 1.1-10.3 [facility] Comment on above: Performed By: #### U PRATIBHA Phipps #### [employer] [address] [place], [place] [phone] Injection Molding Process Technician: Brandan Ugalde MD POC Glucose Fingerstickon Glucose [Mass/Vol] 236 mg/dL High 65 - 105 mg/dL [facility] Interpretation and review of laboratory results Abnormal [facility] Glucose [Mass/Vol] 89 mg/dL 65 - 105 mg/dL [facility] Phosphoruson 10-03-2021 Phosphate [Mass/Vol] 4.2 mg/dL 2.6 - 4.5 mg/dL [facility] Phosphorus, Inorg.on 022 Phosphorus, Inorg. 4.2 mg/dL Normal 2.6-4.[address] [facility] Comment on above: Performed By: #### U Desire, PRATIBHA #### [employer] [address] [place], [place] [phone] Injection Molding Process Technician: Branadn Ugalde MD C DIFF TOXIN/ANTIGENon 10-02 C DIFF AG + TOXIN Negative NEGATIVE [facility] Comment on above: No C. difficile anti gen and Toxin Detected. Specimen Description .FECES [facility] C diff Ag + Toxinon 10-02-19 C diff Ag + Toxin Negative Normal NEG [facility] Comment on above: Result Comment: No C . difficile antigen and Toxin Detected. Performed By: #### U A, PRATIBHA #### [employer] [address] [place], [place] [id number] Injection Molding Process Technician: Brandan Ugalde MD CBC auto differentialon 09-05 Absolute Eos # 0.11 [facility] th Absolute Immature Granulocyte 0.08 Absolute Lymph # 1.84 [facility] He alth Absolute [facility] # 0.59 [facility] Hea lth Basophils (Bld) [#/Vol] 0.03 10*3/uL Basophils/100 WBC (Bld) 1 % 0 - 2 % Differential Type NOT REPORTED Eosinophils/100 WBC (Bld) 2 % 1 - 4 % Hematocrit (Bld) [Volume fraction] 31.2 % Low 36.3 - 47.1 % Hemoglobin.gastrointe stinal spec 1 Ql (Stl) 10.4 g/dL Low 11.9 - 15.1 g/dL Immature granulocytes/100 WBC (Bld) 2 % High 0 Interpretation and review of laboratory results Abnormal Lymphocytes/100 WBC (Bld) 35 % 24 - 43 % MCH (RBC) [Entitic mass] 28.7 pg 25.2 - 33.5 pg MCHC (RBC) [Mass/Vol] 33.3 g/dL 28.4 - 34.8 g/ dL MCV (RBC) [Entitic vol] 86.2 fL 82.6 - 102.9 fL Monocytes/100 WBC (Bld) 11 % 3 - 12 % NRBC Automated 0.0 0.0 per 100 WBC Platelet distribution width (Bld) [Ratio] 13.7 % 11.8 - 14.4 % Platelet Estimate NOT REPORTED Platelet mean volume (Bld) [Entitic vol] 9.0 fL 8.1 - 13.5 fL Platelets (Bld) [#/Vol] 92 10*3/uL Low RBC (Bld) [#/Vol] 3.62 10*6/uL Low 3.95 - 5.11 m/uL RBC (Bld) [#/Vol] NOT REPORTED Segmented neutrophils/100 WBC (Bld) 49 % 36 - 65 % Segs Absolute 2.58 [facility] h WBC (Bld) [#/Vol] 5.2 10*3/uL WBC (Bld) [#/Vol] NOT REPORTED [facility] CBC with Diffon 01-29-2022 Abs. Basophil 0.03 k/uL Normal 0.00-0.[address] [facility] Comment on above: Performed By: #### U PRATIBHA Phipps #### [address] [address] Injection Molding Process Technician: Brandan Ugalde MD Abs.Imm.Granulocyte 0.08 k/uL Normal 0.00-0.[address] [facility] Comment on above: Performed By: #### U FRANK PhippsO #### [address] [address] Injection Molding Process Technician: Brandan Ugalde MD Abs.Neutrophil (Seg) 2.58 k/uL Normal 1.50-8.10 [facility] Comment on above: Performed By: #### PRATIBHA Claudio #### [address] [address] Injection Molding Process Technician: Brandan Ugalde MD Basophils/100 WBC (Bld) 1 % Normal 0-[address] [facility] Comment on above: Performed By: #### PRATIBHA Claudio #### [address] [address] Injection Molding Process Technician: Brandan Ugalde MD Eosinophils (Bld) [#/Vol] 0.11 10*3/uL Normal 0.00-0.[address] [facility] Comment on above: Performed By: #### U AFRANKO #### [address] [address] Injection Molding Process Technician: Brandan Ugalde MD Eosinophils/100 WBC (Bld) 2 % Normal 1-[address] [facility] Comment on above: Performed By: #### U A UMICAO #### [address] [address] Injection Molding Process Technician: Brandan Ugalde MD Immature granulocytes/100 WBC (Bld) 2 % High [address] [facility] Comment on above: Performed By: #### U ACOLLEENICAO #### [address] [address] Injection Molding Process Technician: Brandan Ugalde MD Lymphocytes (Bld) [#/Vol] 1.84 10*3/uL Normal 1.10-3.[address] [facility] Comment on above: Performed By: #### U ACOLLEENICAO #### [address] [address] Injection Molding Process Technician: Brandan Ugalde MD Lymphocytes/100 WBC (Bld) 35 % Normal 24-[address] [facility] Comment on above: Performed By: #### U FRANK PhippsO #### [address] [address] Injection Molding Process Technician: Brandan Ugalde MD Monocytes (Bld) [#/Vol] 0.59 10*3/uL Normal 0.10-1.[address] [facility] Comment on above: Performed By: #### FRANK ClaudioO #### [address] [address] Injection Molding Process Technician: Brandan Ugalde MD Monocytes/100 WBC (Bld) 11 % Normal 3-[address] [facility] Comment on above: Performed By: #### U FRANK PhippsO #### [address] [address] Injection Molding Process Technician: Brandan Ugalde MD Neutrophil (Seg) 49 % Normal 36-65 [facility] Comment on above: Performed By: #### U COLLEEN PhippsICAO #### [facility] [address] [place] [address] Injection Molding Process Technician: Brandan Ugalde MD Erythrocyte distribution width (RBC) [Ratio] 13.7 % Normal 11.8-14.[address] [facility] Comment on above: Performed By: #### U ACOLLEENICAO #### [address] [address] Injection Molding Process Technician: Brandan Ugalde MD Hematocrit (Bld) [Volume fraction] 31.2 % Low 36.3-47.[address] [facility] Comment on above: Performed By: #### U A UMICAO #### [address] [address] Injection Molding Process Technician: Brandan Ugalde MD Hemoglobin (Bld) [Mass/Vol] 10.4 g/dL Low 11.9-15.[address] [facility] Comment on above: Performed By: #### U PRATIBHA Phipps #### [address] [address] Injection Molding Process Technician: Brandan Ugalde MD MCH (RBC) [Entitic mass] 28.7 pg Normal 25.2-33.[address] [facility] Comment on above: Performed By: #### U AFRANKO #### [address] [address] Injection Molding Process Technician: Brandan Ugalde MD MCHC (RBC) [Mass/Vol] 33.3 g/dL Normal 28.4-34.8 [facility] Comment on above: Performed By: #### U AFRANKO #### [address] [address] Injection Molding Process Technician: Brandan Ugalde MD MCV (RBC) [Entitic vol] 86.2 fL Normal 82.6-102.[address] [facility] Comment on above: Performed By: #### U FRANK PhippsO #### [address] [address] Injection Molding Process Technician: Brandan Ugalde MD NRBC Automated 0.0 per 100 WBC Normal 0.[address] [facility] Comment on above: Performed By: #### U AFRANKO #### [facility] [address] [address] Injection Molding Process Technician: Brandan Ugalde MD Platelet mean volume (Bld) [Entitic vol] 9.0 fL Normal 8.1-13.[address] [facility] Comment on above: Performed By: #### U A, UMICAO #### [facility] [address] [place] [address] Injection Molding Process Technician: Brandan Ugalde MD Platelets (Bld) [#/Vol] 92 10*3/uL Low 138-[address] [facility] Comment on above: Performed By: #### U A, UMICAO #### [address] [address] Injection Molding Process Technician: Brandan Ugalde MD RBC (Bld) [#/Vol] 3.62 10*6/uL Low 3.95-5.[address] [facility] Comment on above: Performed By: #### U A, UMICAO #### [address] [address] Injection Molding Process Technician: Brandan Ugalde MD WBC (Bld) [#/Vol] 5.2 10*3/uL Normal 3.5-11.[address] [facility] Comment on above: Performed By: #### U A, UMICAO #### [address] [address] Injection Molding Process Technician: Brandan Ugalde MD Auto Diff Performed NOT REPORTED Normal [facility] Comment on above: Performed By: #### U A, UMICAO #### [address] [address] Injection Molding Process Technician: Brandan Ugalde MD Platelet Comment NOT REPORTED Normal [facility] Comment on above: Performed By: #### U A, UMICAO #### [address] [address] Injection Molding Process Technician: Brandan Ugalde MD RBC morphology finding Nom (Bld) NOT REPORTED Normal [facility] Comment on above: Performed By: #### PRATIBHA Claudio #### [facility] [address] [place] [address] Injection Molding Process Technician: Brandan Ugalde MD WBC Morphology NOT REPORTED Normal [facility] Comment on above: Performed By: #### PRATIBHA Claudio #### [facility] [address] [place] [address] Injection Molding Process Technician: Brandan Ugalde MD Gastrointestinal Panel, [facility] 10-02-2021 Campylobacter PCR NEGATIVE: No Campylobacter spp. (jejuni or coli) DNA Detected NEGATIVE: No Campylobacter spp. (jejuni or coli) DNA Detecte E Coli Enterotoxigenic PCR NEGATIVE: No Enterotoxigenic E. coli (ETEC) Heat-labile and heat-stable (LT/ST) DNA Detected NEGATIVE: No Enterotoxigenic E. coli (ETEC) Heat-labile and Plesiomonas Shigelloides PCR Negative NEGATIVE: No Plesionomas shigelloides DNA Detected Salmonella PCR Negative NEGATIVE: No Salmonella spp. DNA Detected Shigatoxin Gene PCR Negative NEGATIVE : No Shiga toxin-producing gene(s) Detected Shigella Sp PCR Negative NEGATIVE: No Shigella spp. / EIEC DNA Detected Specimen Description .FECES [facility] Vibrio PCR NEGATIVE: No Vibrio (V. vulnificus, V, parahaemolyticus and V. cholerae) DNA Detected NEGATIVE: No Vibrio (V. vulnificus, V, parahaemolyticus and Yersinia Enterocolitica PCR Negative NEGATIVE: No Yersinia enterocolitica DNA Detected [facility] Haptoglobinon 10-02-2021 Haptoglobin 346 mg/dL High 30-[address] [facility] Comment on above: Performed By: #### P TT, FIB, PT, LYTE, DBILI, TBIL, RETCT, CBC, LD, HAPT, PATH ####[facility] [id number] [place] [address] Lab Director: Brandan Ugalde MD Haptoglobin 346 mg/dL High 30 - 200 mg/dL [facility] Interpretation and review of laboratory results Abnormal [facility] POC Glucose Fingerstickon Glucose [Mass/Vol] 200 mg/dL High 65 - 105 mg/dL [facility] Interpretation and review of laboratory results Abnormal [facility] Glucose [Mass/Vol] 131 mg/dL High 65 - 105 mg/dL [facility] Interpretation and review of laboratory results Abnormal [facility] Glucose [Mass/Vol] 122 mg/dL High 65 - 105 mg/dL [facility] Interpretation and review of laboratory results Abnormal [facility] Glucose [Mass/Vol] 119 mg/dL High 65 - 105 mg/dL [facility] Interpretation and review of laboratory results Abnormal [facility] Glucose [Mass/Vol] 135 mg/dL High 65 - 105 mg/dL [facility] Interpretation and review of laboratory results Abnormal [facility] Phosphoruson 10-02-2021 Phosphate [Mass/Vol] 3.0 mg/dL 2.6 - 4.5 mg/dL [facility] Phosphorus, Inorg.on 022 Phosphorus, Inorg. 3.0 mg/dL Normal 2.6-4.[address] [facility] Comment on above: Performed By: #### U PRATIBHA Phipps #### [facility] [address] [place] [address] Injection Molding Process Technician: Brandan Ugalde MD RENAL FUNCTION PANELon 10-02 Albumin [Mass/Vol] 2.5 g/dL Low 3.5 - 5.2 g/dL [facility] Anion gap [Moles/Vol] 9 mmol/L 9 - 17 mmol/L Calcium [Mass/Vol] 8.7 mg/dL 8.6 - 10.4 mg/dL Chloride [Moles/Vol] 109 mmol/L High 98 - 107 mmol/L CO2 [Moles/Vol] 23 mmol/L 20 - 31 mmol/L Creatinine [Mass/Vol] 1.46 mg/dL High 0.50 - 0.90 mg /dL GFR 48 mL/min Low >60 [facility] GFR Non- 39 mL/min Low >60 [employer] GFR/1.73 sq M.predicted MDRD (S/P/Bld) [Vol rate/Area] [facility] [employer] Comment on above: Average GFR for 40-4 9 years old: 99 mL/min/1.73sq m Chronic Kidney Disease: <60 mL/min/1.73sq m Kidney failure: <15 mL/min/1.73sq m eGFR calculated using average adult body mass. Additional eGFR calculator available at: http://www.Beijingyicheng/The ADEX_crcl_2012.htm GFR/1.73 sq M.predicted MDRD (S/P/Bld) [Vol rate/Area] NOT REPORTED [facility] [employer] Glucose [Mass/Vol] 109 mg/dL High 70 - 99 mg/dL [facility] Interpretation and review of laboratory results Abnormal [facility] [employer] Phosphate [Mass/Vol] 3.2 mg/dL 2.6 - 4.5 mg/dL [facility] [employer] Potassium [Moles/Vol] 3.6 mmol/L Low 3.7 - 5.3 mmol /L [facility] [employer] Sodium [Moles/Vol] 141 mmol/L 135 - 144 mmol/L [facility] [employer] Urea nitrogen (BldV) [Mass/Vol] 22 mg/dL High 6 - 20 mg/dL [facility] [employer] Urea nitrogen/Creatinine (Bld) [Mass ratio] NOT REPORTED [facility] [employer] Renal Function Panelon 10-02 (cont.) Normal [facility] Comment on above: Result Comment: Aver age GFR for 40-49 years old: 99 mL/min/1.73sq m Chronic Kidney Disease: <60 mL/min/1.73sq m Kidney failure: <15 mL/min/1.73sq m eGFR calculated using average adult body mass. Additional eGFR calculator available at: http://www.Beijingyicheng/The ADEX_crcl_2012.htm Performed By: #### PRATIBHA Claudio #### [employer] [address] [place] [address] Injection Molding Process Technician: Brandan Ugalde MD Albumin [Mass/Vol] 2.5 g/dL Low 3.5-5.[address] [facility] Comment on above: Performed By: #### U A, UMICAO #### [facility] [address] [place] [address] Injection Molding Process Technician: Brandan Ugalde MD Anion gap [Moles/Vol] 9 mmol/L Normal 9-17 [facility] Comment on above: Performed By: #### U A, UMICAO #### [facility] [address] [place] [address] Injection Molding Process Technician: Brandan Ugalde MD Calcium [Mass/Vol] 8.7 mg/dL Normal 8.6-10.[address] [facility] Comment on above: Performed By: #### U A, UMICAO #### [facility] [address] [place] [address] Injection Molding Process Technician: Brandan Ugalde MD Chloride [Moles/Vol] 109 mmol/L High 98-107 [facility] Comment on above: Performed By: #### U A UMICAO #### [facility] [employer] [address] [place] [address] Injection Molding Process Technician: Brandan Ugalde MD CO2 [Moles/Vol] 23 mmol/L Normal 20-[address] [facility] Comment on above: Performed By: #### U A UMICAO #### [facility] [employer] [address] [place] [address] Injection Molding Process Technician: Brandan Ugalde MD Creatinine [Mass/Vol] 1.46 mg/dL High 0.50-0.90 [facility] Comment on above: Performed By: #### U A, UMICAO #### [facility] [address] [place] [address] Injection Molding Process Technician: Brandan Ugalde MD GFR, Amer 48 mL/min Low >60 [facility] Comment on above: Performed By: #### U A, UMICAO #### [facility] [address] [place] [address] Injection Molding Process Technician: Brandan Ugalde MD GFR,non Amer 39 mL/min Low >60 [facility] Comment on above: Performed By: #### U APRATIBHA #### [facility] [address] [place] [address] Injection Molding Process Technician: Brandan Ugalde MD Glucose [Mass/Vol] 109 mg/dL High 70-[address] [facility] Comment on above: Performed By: #### U A, FRANKO #### [facility] [address] [place] [address] Injection Molding Process Technician: Brandan Ugalde MD Phosphorus, Inorg. 3.2 mg/dL Normal 2.6-4.[address] [facility] Comment on above: Performed By: #### U PRATIBHA Phipps #### [facility] [employer] [address] [place] [address] Injection Molding Process Technician: Brandan Ugalde MD Potassium [Moles/Vol] 3.6 mmol/L Low 3.7-5.3 [facility] Comment on above: Performed By: #### U APRATIBHA #### [facility] [employer] [address] [place] [address] Injection Molding Process Technician: Brandan Ugalde MD Sodium [Moles/Vol] 141 mmol/L Normal 135-[address] [facility] Comment on above: Performed By: #### U AFRANKO #### [facility] [address] [place] [address] Injection Molding Process Technician: Brandan Ugalde MD Urea nitrogen [Mass/Vol] 22 mg/dL High 6-[address] [facility] Comment on above: Performed By: #### U A, COLLEENICAO #### [facility] [employer] [address] [place] [address] Injection Molding Process Technician: Brandan Ugalde MD BUN/CRE Ratio NOT REPORTED Normal -[address] [facility] Comment on above: Performed By: #### U A UMICAO #### [facility] [employer] [address] [place] [address] Injection Molding Process Technician: Brandan Ugalde MD Staging: NOT REPORTED Normal [facility] Comment on above: Performed By: #### U A UMICAO #### [facility] [address] [place] [address] Injection Molding Process Technician: Brandan Ugalde MD Stool PCR Batteryon 10-02-19 Campylobacter sp PCR NEGATIVE: No Campylobacter spp. (jejuni or coli) DNA Detected Normal CAMNEG [facility] Comment on above: Performed By: #### U ACOLLEENICAO #### [facility] [employer] [address] [place] [address] Injection Molding Process Technician: Brandan Ugalde MD E coli enterotox PCR NEGATIVE: No Enterotoxigenic E. coli (ETEC) Heat-labile and heat-stable (LT/ST) Normal EECNEG [facility] Comment on above: Result Comment: DNA Detected Performed By: #### U ACOLLEENICAMuriel #### [facility] [employer] [address] [place] [address] Injection Molding Process Technician: Brandan gUalde MD Plesiomonas sp PCR Negative Normal PLENEG [facility] Comment on above: Performed By: #### U A UMICAO #### [facility] [employer] [address] [place] [address] 69298 Injection Molding Process Technician: Brandan Ugalde MD Salmonella sp PCR Negative Normal SALNEG [facility] Comment on above: Performed By: #### U A UMICAO #### [facility] [employer] [address] [place] [address] Injection Molding Process Technician: Brandan Ugalde MD Shigatoxin gene PCR Negative Normal STXNEG [facility] Comment on above: Performed By: #### U A UMICAO #### [facility] [employer] [address] [place] [address]7771 Injection Molding Process Technician: Brandan Ugalde MD Shigella sp PCR Negative Normal SHINEG [facility] Comment on above: Performed By: #### U PRATIBHA Phipps #### [facility] [employer] [address] [place] [address] Injection Molding Process Technician: Brandan Ugalde MD Vibrio sp PCR NEGATIVE: No Vibrio (V. vulnificus, V, parahaemolyticus and V. cholerae) DNA Normal VIBNEG [facility] Comment on above: Result Comment: Dete cted Performed By: #### U PRATIBHA Phipps #### [address] [address] Injection Molding Process Technician: Brandan gUalde MD Yersinia gene PCR Negative Normal YERNEG [facility] Comment on above: Performed By: #### PRTAIBHA Claudio #### [facility] [employer] [address] [place] [address]12 Injection Molding Process Technician: Brandan Ugalde MD APTTon 10-01-2021 aPTT Coag (Bld) [Time] 22.1 s Normal 20.5-30.[address] [facility] Comment on above: Result Comment: IV Heparin Therapy Range: 48.6-77.8 Performed By: #### L ACWB #### [address] [address] Injection Molding Process Technician: Brandan Ugalde MD aPTT Coag (Bld) [Time] 22.1 s Comment on above: IV Heparin Therapy Range: 48.6-77.8 BETA-HYDROXYBUTERATEon 10-01 Beta-Hydroxybutyrate 0.2 mmol/L 0.02 - 0.27 mmol/L [facility] Beta Hydroxybutyrateon 10-01 Beta Hydroxybutyrate 0.20 mmol/L Normal 0.02-0.27 [facility] Comment on above: Performed By: #### V BG #### [address] [address] Injection Molding Process Technician: Brandan Ugalde MD Bilirubin, Directon 10-01-19 Bilirubin.indirect [Mass/Vol] 0.08 mg/dL Normal <0.[address] [facility] Comment on above: Performed By: #### P TT, FIB, PT, LYTE, DBILI, TBIL, RETCT, CBC, LD, HAPT, PATH ####[facility] [address] [place] [address] Lab Director: Brandan Ugalde MD Bilirubin.indirect [Mass/Vol] 0.08 mg/dL <0.31 Bilirubin, Totalon 2 Bilirubin [Mass/Vol] 0.17 mg/dL Low 0.3-1.2 [facility] Comment on above: Performed By: #### P TT, FIB, PT, LYTE, DBILI, TBIL, RETCT, CBC, LD, HAPT, PATH ####[address] [address] [facility] Director: Brandan Ugalde MD Bilirubin [Mass/Vol] 0.17 mg/dL Low 0.3 - 1.2 mg/dL C diff Ag + Toxinon 10-01-19 Specimen Description .FECES Normal [facility] Comment on above: Performed By: #### U A, UMICAO #### [address] [address] [place] [address] Injection Molding Process Technician: Brandan Ugalde MD CBCon 10-01-2021 Erythrocyte distribution width (RBC) [Ratio] 13.8 % Normal 11.8-14.[address] [facility] Comment on above: Performed By: #### P TT, FIB, PT, LYTE, DBILI, TBIL, RETCT, CBC, LD, HAPT, PATH ####[address] [place] [address] Lab Director: Brandan Ugalde MD Hematocrit (Bld) [Volume fraction] 32.2 % Low 36.3-47.[address] [facility] Comment on above: Performed By: #### P TT, FIB, PT, LYTE, DBILI, TBIL, RETCT, CBC, LD, HAPT, PATH ####[address] [address])[phone] Director: Brandan Ugalde MD Hemoglobin (Bld) [Mass/Vol] 10.9 g/dL Low 11.9-15.[address] [facility] Comment on above: Performed By: #### P TT, FIB, PT, LYTE, DBILI, TBIL, RETCT, CBC, LD, HAPT, PATH ####[place], [place] [address])[phone] Director: Brandan Ugalde MD MCH (RBC) [Entitic mass] 29.1 pg Normal 25.2-33.[address] [facility] Comment on above: Performed By: #### P TT, FIB, PT, LYTE, DBILI, TBIL, RETCT, CBC, LD, HAPT, PATH ####[place], [place] [address])[phone] Director: Brandan Ugalde MD MCHC (RBC) [Mass/Vol] 33.9 g/dL Normal 28.4-34.8 [facility] Comment on above: Performed By: #### P TT, FIB, PT, LYTE, DBILI, TBIL, RETCT, CBC, LD, HAPT, PATH ####[place], [place] [address])[phone] Director: Brandan Ugalde MD MCV (RBC) [Entitic vol] 85.9 fL Normal 82.6-102.[address] [facility] Comment on above: Performed By: #### P TT, FIB, PT, LYTE, DBILI, TBIL, RETCT, CBC, LD, HAPT, PATH ####[place], [place] [address])[phone] Director: Brandan Ugalde MD NRBC Automated 0.0 per 100 WBC Normal 0.[address] [facility] Comment on above: Performed By: #### P TT, FIB, PT, LYTE, DBILI, TBIL, RETCT, CBC, LD, HAPT, PATH ####[address] [address])[phone] Director: Brandan Ugalde MD Platelet mean volume (Bld) [Entitic vol] 10.4 fL Normal 8.1-13.[address] [facility] Comment on above: Performed By: #### P TT, FIB, PT, LYTE, DBILI, TBIL, RETCT, CBC, LD, HAPT, PATH ####[place], [place] [address])[phone] Director: Brandan Ugalde MD Platelets (Bld) [#/Vol] 141 10*3/uL Normal 138-[address] [facility] Comment on above: Performed By: #### P TT, FIB, PT, LYTE, DBILI, TBIL, RETCT, CBC, LD, HAPT, PATH ####[place], [place] [address])[phone] Director: Brandan Ugalde MD RBC (Bld) [#/Vol] 3.75 10*6/uL Low 3.95-5.[address] [facility] Comment on above: Performed By: #### P TT, FIB, PT, LYTE, DBILI, TBIL, RETCT, CBC, LD, HAPT, PATH ####[address] [address])[phone] Director: Brandan Ugalde MD WBC (Bld) [#/Vol] 4.8 10*3/uL Normal 3.5-11.[address] [facility] Comment on above: Performed By: #### P TT, FIB, PT, LYTE, DBILI, TBIL, RETCT, CBC, LD, HAPT, PATH ####[address] [address])[phone] Director: Brandan Ugalde MD Hematocrit (Bld) [Volume fraction] 32.2 % Low 36.3 - 47.1 % [facility] Hemoglobin.gastrointe stinal spec 1 Ql (Stl) 10.9 g/dL Low 11.9 - 15.1 g/dL Interpretation and review of laboratory results Abnormal [facility] [employer] MCH (RBC) [Entitic mass] 29.1 pg 25.2 - 33.5 pg MCHC (RBC) [Mass/Vol] 33.9 g/dL 28.4 - 34.8 g/ dL MCV (RBC) [Entitic vol] 85.9 fL 82.6 - 102.9 fL [facility] [employer] NRBC Automated 0.0 0.0 per 100 WBC [facility] Platelet distribution width (Bld) [Ratio] 13.8 % 11.8 - 14.4 % [facility] Platelet mean volume (Bld) [Entitic vol] 10.4 fL 8.1 - 13.5 fL [facility] [employer] Platelets (Bld) [#/Vol] 141 10*3/uL [facility] RBC (Bld) [#/Vol] 3.75 10*6/uL Low 3.95 - 5.11 m/uL [facility] WBC (Bld) [#/Vol] 4.8 10*3/uL [facility] CBC auto differentialon 09-05 Absolute Eos # 0.05 [facility] th Absolute Immature Granulocyte 0.04 Absolute Lymph # 1.46 [facility] He alth Absolute [facility] # 0.46 [facility] lth Basophils (Bld) [#/Vol] 10*3/uL Basophils/100 WBC (Bld) 1 % 0 - 2 % [facility] [employer] Differential Type NOT REPORTED Eosinophils/100 WBC (Bld) 1 % 1 - 4 % [facility] Hematocrit (Bld) [Volume fraction] 28.5 % Low 36.3 - 47.1 % [facility] Hemoglobin.gastrointe stinal spec 1 Ql (Stl) 10.0 g/dL Low 11.9 - 15.1 g/dL Immature granulocytes/100 WBC (Bld) 1 % High 0 [facility] [employer] Interpretation and review of laboratory results Abnormal [facility] Lymphocytes/100 WBC (Bld) 37 % 24 - 43 % MCH (RBC) [Entitic mass] 29.6 pg 25.2 - 33.5 pg MCHC (RBC) [Mass/Vol] 35.1 g/dL High 28.4 - 34.8 g/ dL MCV (RBC) [Entitic vol] 84.3 fL 82.6 - 102.9 fL [facility] [employer] Monocytes/100 WBC (Bld) 12 % 3 - 12 % [facility] [employer] NRBC Automated 0.0 0.0 per 100 WBC Platelet distribution width (Bld) [Ratio] 13.9 % 11.8 - 14.4 % [facility] [employer] Platelet Estimate NOT REPORTED [facility] [employer] Platelet mean volume (Bld) [Entitic vol] NOT REPORTED 8.1 - 13.5 fL [facility] [employer] Platelets (Bld) [#/Vol] See Reflexed IPF Result RBC (Bld) [#/Vol] 3.38 10*6/uL Low 3.95 - 5.11 m/uL RBC (Bld) [#/Vol] NOT REPORTED [facility] [employer] Segmented neutrophils/100 WBC (Bld) 48 % 36 - 65 % [facility] [employer] [facility]s [facility] [#/Vol] 3.9 10*3/uL WBC (Bld) [#/Vol] NOT REPORTED [facility] CBC with Diffon 10-01-2021 Abs. Basophil <0.03 Normal 0.00-0.[address] [facility] Comment on above: Performed By: #### L ACWB #### [employer] [address] [place], [place] [id number] Injection Molding Process Technician: Brandan Ugalde MD Abs.Imm.Granulocyte 0.04 k/uL Normal 0.00-0.[address] [facility] Comment on above: Performed By: #### L ACWB #### [facility] [address] [place], [place] [id number] Injection Molding Process Technician: Brandan Ugalde MD Abs.Neutrophil (Seg) 1.91 k/uL Normal 1.50-8.10 [facility] Comment on above: Performed By: #### L ACWB #### [id number] [place] [address] Injection Molding Process Technician: Brandan Ugalde MD Basophils/100 WBC (Bld) 1 % Normal 0-[address] [facility] Comment on above: Performed By: #### L ACWB #### [address] [address] Injection Molding Process Technician: Brandan Ugalde MD Eosinophils (Bld) [#/Vol] 0.05 10*3/uL Normal 0.00-0.[address] [facility] Comment on above: Performed By: #### L ACWB #### [address] [address] Injection Molding Process Technician: Brandan Ugalde MD Eosinophils/100 WBC (Bld) 1 % Normal 1-[address] [facility] Comment on above: Performed By: #### L ACWB #### [address] [address] Injection Molding Process Technician: Brandan Ugalde MD Erythrocyte distribution width (RBC) [Ratio] 13.9 % Normal 11.8-14.[address] [facility] Comment on above: Performed By: #### L ACWB #### [address] [address] Injection Molding Process Technician: Brandan Ugalde MD Hematocrit (Bld) [Volume fraction] 28.5 % Low 36.3-47.[address] [facility] Comment on above: Performed By: #### L ACWB #### [facility] [employer] [address] [place] [address] Injection Molding Process Technician: Brandan Ugalde MD Hemoglobin (Bld) [Mass/Vol] 10.0 g/dL Low 11.9-15.[address] [facility] Comment on above: Performed By: #### L ACWB #### [address] [address] Injection Molding Process Technician: Brandan Ugalde MD Immature granulocytes/100 WBC (Bld) 1 % High [address] [facility] Comment on above: Performed By: #### L ACWB #### [address] [address] Injection Molding Process Technician: Brandan Ugalde MD Lymphocytes (Bld) [#/Vol] 1.46 10*3/uL Normal 1.10-3.[address] [facility] Comment on above: Performed By: #### L ACWB #### [address] [address] Injection Molding Process Technician: Brandan Ugalde MD Lymphocytes/100 WBC (Bld) 37 % Normal 24-[address] [facility] Comment on above: Performed By: #### L ACWB #### [address] [address] Injection Molding Process Technician: Brandan Ugalde MD MCH (RBC) [Entitic mass] 29.6 pg Normal 25.2-33.[address] [facility] Comment on above: Performed By: #### L ACWB #### [address] [address] Injection Molding Process Technician: Brandan Ugalde MD MCHC (RBC) [Mass/Vol] 35.1 g/dL High 28.4-34.8 [facility] Comment on above: Performed By: #### L ACWB #### [address] [address] Injection Molding Process Technician: Brandan Ugalde MD MCV (RBC) [Entitic vol] 84.3 fL Normal 82.6-102.[address] [facility] Comment on above: Performed By: #### L ACWB #### [address] [address] Injection Molding Process Technician: Brandan Ugalde MD Monocytes (Bld) [#/Vol] 0.46 10*3/uL Normal 0.10-1.[address] [facility] Comment on above: Performed By: #### L ACWB #### [address] [address] Injection Molding Process Technician: Brandan Ugalde MD Monocytes/100 WBC (Bld) 12 % Normal 3-[address] [facility] Comment on above: Performed By: #### L ACWB #### [address] [address] Injection Molding Process Technician: Brandan Ugalde MD Neutrophil (Seg) 48 % Normal 36-65 [facility] Comment on above: Performed By: #### L ACWB #### [address] [address] Injection Molding Process Technician: Brandan Ugalde MD NRBC Automated 0.0 per 100 WBC Normal 0.[address] [facility] Comment on above: Performed By: #### L ACWB #### [address] [address] Injection Molding Process Technician: Brandan Ugalde MD Platelet Count See Reflexed IPF Result Normal 138-[address] [facility] Comment on above: Performed By: #### L ACWB #### [address] [address] Injection Molding Process Technician: Brandan Ugalde MD RBC (Bld) [#/Vol] 3.38 10*6/uL Low 3.95-5.[address] [facility] Comment on above: Performed By: #### L ACWB #### [address] [address] Injection Molding Process Technician: Brandan Ugalde MD WBC (Bld) [#/Vol] 3.9 10*3/uL Normal 3.5-11.[address] [facility] Comment on above: Performed By: #### L ACWB #### [address] [address] [place] [address] Injection Molding Process Technician: Brandan Ugalde MD Auto Diff Performed NOT REPORTED Normal [facility] Comment on above: Performed By: #### L ACWB #### [facility] [employer] [address] [place] [address] Injection Molding Process Technician: Brandan Ugalde MD MPV NOT REPORTED Normal 8.1-13.[address] [facility] Comment on above: Performed By: #### L ACWB #### [facility] [employer] [address] [place] [address] Injection Molding Process Technician: Brandan Ugalde MD Platelet Comment NOT REPORTED Normal [facility] Comment on above: Performed By: #### L ACWB #### [address] [address] Injection Molding Process Technician: Brandan Ugalde MD RBC morphology finding Nom (Bld) NOT REPORTED Normal [facility] Comment on above: Performed By: #### L ACWB #### [facility] [employer] [address] [place] [address] Injection Molding Process Technician: Brandan Ugalde MD WBC Morphology NOT REPORTED Normal [facility] Comment on above: Performed By: #### L ACWB #### [address] [address] Injection Molding Process Technician: Brandan Ugalde MD CHLORIDE, URINE, RANDOMon Chloride, Ur 33 mmol/L Comment on above: No normal range esta [...] Beulah Felix DO 10/01/21 Final result Normal [facility] CT ABDOMEN PELVIS WO CONTRAS T Additional Contrast? Oralon 10-01-2021 1. No acute process in the abdomen or pelvis. 2. Trace bilateral pleural fluid and mild bibasilar atelectasis. RECOMMENDATIONS: Unavailable [facility] RIS CONSOLIDATED EXAMINATION: CT OF THE ABDOMEN [...] hernia. No acute or suspicious osseous abnormality. [facility] RIS CONSOLIDATED Beulah Felix DO - 10/01/2021 [...] pleural fluid and mild bibasilar atelectasis. RECOMMENDATIONS: [facility] [employer] Phone: Radiology Study observation (narrative) [employer] Phone: CT ABDOMEN PELVIS WO CONTRAS T Additional Contrast? OralOrdered By: Beulah Felix on 10-01-2021 [employer] Phone: Chloride,Random Uron 022 Chloride [Moles/Vol] 33 mmol/L Normal [facility] Comment on above: Result Comment: No n ormal range established. Performed By: #### U A, UMICAO #### [facility] [address] [place] [address] Injection Molding Process Technician: Brandan Ugalde MD Comp Metabolic Pr/rfx MGon 0 10-01-2021 AST [Catalytic activity/Vol] 12 U/L Normal <[address] [facility] Comment on above: Performed By: #### L ACWB #### [facility] [address] [place] [address] Injection Molding Process Technician: Brandan Ugalde MD Bilirubin [Mass/Vol] mg/dL Low 0.3-1.2 [facility] Comment on above: Performed By: #### L ACWB #### [facility] [address] [place] [address] Injection Molding Process Technician: Brandan Ugalde MD (cont.) Normal [facility] Comment on above: Result Comment: Aver age GFR for 40-49 years old: 99 mL/min/1.73sq m Chronic Kidney Disease: <60 mL/min/1.73sq m Kidney failure: <15 mL/min/1.73sq m eGFR calculated using average adult body mass. Additional eGFR calculator available at: http://www.[employer].com/multiple_crcl_2012.htm Performed By: #### L ACWB #### [facility] [employer] [address] [place] [address] Injection Molding Process Technician: Brandan Ugalde MD Albumin [Mass/Vol] 1.9 g/dL Low 3.5-5.[address] [facility] Comment on above: Performed By: #### L ACWB #### [address] [address] Injection Molding Process Technician: Brandan Ugalde MD Albumin/Glob Ratio 0.7 Low 1.0-2.[address] [facility] Comment on above: Performed By: #### L ACWB #### [address] [address] Injection Molding Process Technician: Brandan Ugalde MD Alkaline Phos 69 U/L Normal 35-[address] [facility] Comment on above: Performed By: #### L ACWB #### [address] [address] Injection Molding Process Technician: Brandan Ugalde MD ALT [Catalytic activity/Vol] 11 U/L Normal 5-[address] [facility] Comment on above: Performed By: #### L ACWB #### [address] [address] Injection Molding Process Technician: Brandan Ugalde MD Anion gap [Moles/Vol] 10 mmol/L Normal 9-17 [facility] Comment on above: Performed By: #### L ACWB #### [address] [address] Injection Molding Process Technician: Brandan Ugalde MD Calcium [Mass/Vol] 8.2 mg/dL Low 8.6-10.[address] [facility] Comment on above: Performed By: #### L ACWB #### [address] [address] Injection Molding Process Technician: Brandan Ugalde MD Chloride [Moles/Vol] 115 mmol/L High 98-107 [facility] Comment on above: Performed By: #### L ACWB #### [address] [address] Injection Molding Process Technician: Brandan Ugalde MD CO2 [Moles/Vol] 13 mmol/L Low 20-[address] [facility] Comment on above: Performed By: #### L ACWB #### [address] [address] Injection Molding Process Technician: Brandan Ugalde MD Creatinine [Mass/Vol] 1.77 mg/dL High 0.50-0.90 [facility] Comment on above: Performed By: #### L ACWB #### [address] [address] Injection Molding Process Technician: Brandan Ugalde MD GFR, Amer 38 mL/min Low >60 [facility] Comment on above: Performed By: #### L ACWB #### [address] [address] Injection Molding Process Technician: Brandan Ugalde MD GFR,non Amer 31 mL/min Low >60 [facility] Comment on above: Performed By: #### L ACWB #### [address] [address] Injection Molding Process Technician: Brandan Ugalde MD Glucose [Mass/Vol] 184 mg/dL High 70-[address] [facility] Comment on above: Performed By: #### L ACWB #### [address] [address] Injection Molding Process Technician: Brandan Ugalde MD Potassium [Moles/Vol] 3.5 mmol/L Low 3.7-5.3 [facility] Comment on above: Performed By: #### L ACWB #### [address] [address] Injection Molding Process Technician: Brandan Ugalde MD Protein [Mass/Vol] 4.6 g/dL Low 6.4-8.[address] [facility] Comment on above: Performed By: #### L ACWB #### [facility] [address] [place] [address] Injection Molding Process Technician: Brandan Ugalde MD Sodium [Moles/Vol] 138 mmol/L Normal 135-[address] [facility] Comment on above: Performed By: #### L ACWB #### [facility] [employer] [facility] [place] [address] Injection Molding Process Technician: Brandan Ugalde MD Urea nitrogen [Mass/Vol] 31 mg/dL High -[address] [facility] Comment on above: Performed By: #### L ACWB #### [facility] [employer] [address] [place] [address] Injection Molding Process Technician: Brandan Ugalde MD BUN/CRE Ratio NOT REPORTED Normal - [facility] Comment on above: Performed By: #### L ACWB #### [facility] [employer] [address] [place] [address] Injection Molding Process Technician: Brandan Ugalde MD Staging: NOT REPORTED Normal [facility] Comment on above: Performed By: #### L ACWB #### [address] [address] Injection Molding Process Technician: Brandan Ugalde MD Comprehensive Metabolic Pane l w/ Reflex to on 10-01-2021 Albumin [Mass/Vol] 1.9 g/dL Low 3.5 - 5.2 g/dL [facility] Albumin/Globulin [Mass ratio] 0.7 {ratio} Low ALP (Bld) [Catalytic activity/Vol] 69 U/L 35 - 104 U/L ALT [Catalytic activity/Vol] 11 U/L 5 - 33 U/L Anion gap [Moles/Vol] 10 mmol/L 9 - 17 mmol/L AST [Catalytic activity/Vol] 12 U/L <32 Bilirubin [Mass/Vol] mg/dL Low 0.3 - 1.2 mg/dL Calcium [Mass/Vol] 8.2 mg/dL Low 8.6 - 10.4 mg/dL [employer] Chloride [Moles/Vol] 115 mmol/L High 98 - 107 mmol/L [facility] [employer] CO2 [Moles/Vol] 13 mmol/L Low 20 - 31 mmol/L [facility] [employer] Creatinine [Mass/Vol] 1.77 mg/dL High 0.50 - 0.90 mg /dL [facility] [employer] Free PSA/Total PSA [Mass fraction] 4.6 g/dL Low 6.4 - 8.3 g/dL [facility] [employer] GFR 38 mL/min Low >60 [facility] GFR Non- 31 mL/min Low >60 [employer] GFR/1.73 sq M.predicted MDRD (S/P/Bld) [Vol rate/Area] Comment on above: Average GFR for 40-4 9 years old: 99 mL/min/1.73sq m Chronic Kidney Disease: <60 mL/min/1.73sq m Kidney failure: <15 mL/min/1.73sq m eGFR calculated using average adult body mass. Additional eGFR calculator available at: http://www.Beijing[employer]heng/multiple_crcl_2012.htm GFR/1.73 sq M.predicted MDRD (S/P/Bld) [Vol rate/Area] NOT REPORTED [facility] [employer] Glucose [Mass/Vol] 184 mg/dL High 70 - 99 mg/dL [facility] [employer] Interpretation and review of laboratory results Abnormal [employer] Potassium [Moles/Vol] 3.5 mmol/L Low 3.7 - 5.3 mmol /L [facility] [employer] Sodium [Moles/Vol] 138 mmol/L 135 - 144 mmol/L [facility] [employer] Urea nitrogen (BldV) [Mass/Vol] 31 mg/dL High 6 - 20 mg/dL [facility] [employer] Urea nitrogen/Creatinine (Bld) [Mass ratio] NOT REPORTED [facility] [employer] Electrolyte Panelon 10-01-19 Anion gap [Moles/Vol] 8 mmol/L Low 9 - 17 mmol/L [employer] Chloride [Moles/Vol] 108 mmol/L High 98 - 107 mmol/L [facility] [employer] CO2 [Moles/Vol] 19 mmol/L Low 20 - 31 mmol/L [facility] [employer] Interpretation and review of laboratory results Abnormal [employer] Potassium [Moles/Vol] 3.4 mmol/L Low 3.7 - 5.3 mmol /L Sodium [Moles/Vol] 135 mmol/L 135 - 144 mmol/L [facility] Anion gap [Moles/Vol] 9 mmol/L 9 - 17 mmol/L Chloride [Moles/Vol] 112 mmol/L High 98 - 107 mmol/L CO2 [Moles/Vol] 16 mmol/L Low 20 - 31 mmol/L Potassium [Moles/Vol] 3.2 mmol/L Low 3.7 - 5.3 mmol /L Sodium [Moles/Vol] 137 mmol/L 135 - 144 mmol/L Electroly[employer] 10-01-2021 Anion gap [Moles/Vol] 8 mmol/L Low 9-17 [facility] Comment on above: Performed By: #### PRATIBHA Claudio #### [facility] [employer] [address] [place] [address] [phone] Injection Molding Process Technician: Brandan Ugalde MD Chloride [Moles/Vol] 108 mmol/L High 98-107 [facility] Comment on above: Performed By: #### FRANK ClaudioO #### [facility] [employer] [address] [place] [address] Injection Molding Process Technician: Brandan Ugalde MD CO2 [Moles/Vol] 19 mmol/L Low 20-[address] [facility] Comment on above: Performed By: #### FRANK ClaudioO #### [employer] [address] [place] [address] Injection Molding Process Technician: Brandan Ugalde MD Potassium [Moles/Vol] 3.4 mmol/L Low 3.7-5.3 [facility] Comment on above: Performed By: #### U FRANK PhippsO #### [facility] [address] [place] [address] Injection Molding Process Technician: Brandan Ugalde MD Sodium [Moles/Vol] 135 mmol/L Normal 135-[address] [facility] Comment on above: Performed By: #### U PRATIBHA Phipps #### [address] [address] Injection Molding Process Technician: Brandan Ugalde MD Anion gap [Moles/Vol] 9 mmol/L Normal 9-17 [facility] Comment on above: Performed By: #### L ACWB #### [address] [address] Injection Molding Process Technician: Brandan Ugalde MD Chloride [Moles/Vol] 112 mmol/L High 98-107 [facility] Comment on above: Performed By: #### L ACWB #### [address] [address] Injection Molding Process Technician: Brandan Ugalde MD CO2 [Moles/Vol] 16 mmol/L Low 20-[address] [facility] Comment on above: Performed By: #### L ACWB #### [address] [address] Injection Molding Process Technician: Brandan Ugalde MD Potassium [Moles/Vol] 3.2 mmol/L Low 3.7-5.3 [facility] Comment on above: Performed By: #### L ACWB #### [address] [address] Injection Molding Process Technician: Brandan Ugalde MD Sodium [Moles/Vol] 137 mmol/L Normal 135-[address] [facility] Comment on above: Performed By: #### L ACWB #### [facility] [employer] [address] [place] [address] Injection Molding Process Technician: Brandan Ugalde MD Fibrinogenon 10-01-2021 Fibrinogen 389 mg/dL Normal 140-[address] [facility] Comment on above: Performed By: #### L ACWB #### [facility] [employer] [address] [place] [address] Injection Molding Process Technician: Brandan Ugalde MD Fibrinogen 389 mg/dL 140 - 420 mg/dL [facility] Immature Platelet Fractionon 10-01-2021 Platelet, Fluorescence Platelet clumps present, count appears decreased. [facility] Lactate Dehydrogenaseon 09-05 LDH [Catalytic activity/Vol] 233 U/L High 135-[address] [facility] Comment on above: Performed By: #### P TT, FIB, PT, LYTE, DBILI, TBIL, RETCT, CBC, LD, HAPT, PATH ####[facility] [id number] [place] [address] Lab Director: Brandan Ugalde MD Interpretation and review of laboratory results Abnormal LD 233 U/L High 135 - 214 U/L [facility] Magnesiumon 10-01-2021 Magnesium [Mass/Vol] 2.0 mg/dL Normal 1.6-2.6 [facility] Comment on above: Performed By: #### L ACWB #### [facility] [employer] [address] [place] [address] Injection Molding Process Technician: Brandan Ugalde MD Magnesium [Mass/Vol] 2.0 mg/dL 1.6 - 2.6 mg/dL [facility] No Panel Informationon 10-01 [facility] Interpretation and review of laboratory results Abnormal [facility] PLT, Immature Fract.on 10-01 Platelet, Fluoresc. Platelet clumps present, count appears decreased. Normal 138-[address] [facility] Comment on above: Performed By: #### L ACWB #### [facility] [employer] [address] [place] [address] Injection Molding Process Technician: Brandan Ugalde MD PLT, Immature Fract. NOT REPORTED Normal 1.1-10.3 [facility] Comment on above: Performed By: #### L ACWB #### [facility] [employer] [address] [place] [address] Injection Molding Process Technician: Brandan Ugalde MD POC Glucose Fingerstickon Glucose [Mass/Vol] 177 mg/dL High 65 - 105 mg/dL [facility] Interpretation and review of laboratory results Abnormal [facility] Glucose [Mass/Vol] 188 mg/dL High 65 - 105 mg/dL [facility] Interpretation and review of laboratory results Abnormal [facility] Glucose [Mass/Vol] 225 mg/dL High 65 - 105 mg/dL [facility] Interpretation and review of laboratory results Abnormal [facility] Glucose [Mass/Vol] 197 mg/dL High 65 - 105 mg/dL [facility] Interpretation and review of laboratory results Abnormal [facility] Glucose [Mass/Vol] 137 mg/dL High 65 - 105 mg/dL [facility] Interpretation and review of laboratory results Abnormal [facility] POTASSIUM, URINE, RANDOMon 0 10-01-2021 Potassium, Ur 7 mmol/L [facility] Comment on above: No normal range esta blished. PROTIME-INRon 10-01-2021 INR Coag (Bld) [Relative time] 1.3 {INR} Comment on above: Therapeutic Range: Moderate Anticoagulant Intensity: INR = 2.0-3.0 High Anticoagulant Intensity: INR = 2.5-3.5 Interpretation and review of laboratory results Abnormal PT Coag (PPP) [Time] 13.8 s High [facility] PTon 10-01-2021 INR Coag (PPP) [Relative time] 1.1 {INR} Normal [facility] Comment on above: Result Comment: Therapeutic Range: Moderate Anticoagulant Intensity: INR = 2.0-3.0 High Anticoagulant Intensity: INR = 2.5-3.5 Performed By: #### L ACWB #### [employer] [address] [place], [place] [phone] Injection Molding Process Technician: Brandan Ugalde MD PT Coag (PPP) [Time] 11.4 s Normal 9.1-12.3 [facility] Comment on above: Performed By: #### L ACWB #### [employer] [address] [place] [address] Injection Molding Process Technician: Brandan Ugalde MD INR Coag (PPP) [Relative time] 1.3 {INR} Normal [facility] Comment on above: Result Comment: Therapeutic Range: Moderate Anticoagulant Intensity: INR = 2.0-3.0 High Anticoagulant Intensity: INR = 2.5-3.5 Performed By: #### L ACWB #### [facility] [place] [address] Injection Molding Process Technician: Brandan Ugalde MD PT Coag (PPP) [Time] 13.8 s High 9.1-12.3 [facility] Comment on above: Performed By: #### L ACWB #### [facility] [employer] [address] [place] [address] Injection Molding Process Technician: Brandan Ugalde MD Phosphoruson 10-01-2021 Interpretation and review of laboratory results Abnormal Phosphate [Mass/Vol] 1.8 mg/dL Low 2.6 - 4.5 mg/dL [facility] Phosphorus, Inorg.on 022 Phosphorus, Inorg. 1.8 mg/dL Low 2.6-4.[address] [facility] Comment on above: Performed By: #### L ACWB #### [facility] [employer] [address] [place] [address] Injection Molding Process Technician: Brandan Ugalde MD Potassium,Random Uron 2021 Potassium [Moles/Vol] 7.0 mmol/L Normal [facility] Comment on above: Result Comment: No n ormal range established. Performed By: #### U A, UMICAO #### [facility] [employer] [address] [place] [address] Injection Molding Process Technician: Brandan Ugalde MD Protime-INRon 10-01-2021 INR Coag (Bld) [Relative time] 1.1 {INR} Comment on above: Therapeutic Range: Moderate Anticoagulant Intensity: INR = 2.0-3.0 High Anticoagulant Intensity: INR = 2.5-3.5 PT Coag (PPP) [Time] 11.4 s [facility] Resp Viral Panelon 2 Adenovirus Not detected Normal [facility] Comment on above: Performed By: #### R AQUACULTURE FARMER ####[address] [place], [place] [phone] Director: MD Shoaib Wooten.parapertussis Not detected Normal [facility] Comment on above: Performed By: #### R AQUACULTURE FARMER ####[address] [phone] Director: Brandan Ugalde MD Bordetella pertussis Not detected Normal [facility] Comment on above: Performed By: #### R AQUACULTURE FARMER ####[address] [phone] Director: Brandan Ugalde MD Chlamyd.pneumoniae Not detected Normal [facility] Comment on above: Performed By: #### R AQUACULTURE FARMER ####[address] [phone] Director: Brandan Ugalde MD Coronavirus 229E Not detected Normal [facility] Comment on above: Performed By: #### R AQUACULTURE FARMER ####[address] [phone] Director: Brandan Ugalde MD Coronavirus HKU1 Not detected Normal [facility] Comment on above: Performed By: #### R AQUACULTURE FARMER ####[address] [place], [place] [phone] Director: Brandan Ugalde MD Coronavirus NL63 Not detected Normal [facility] Comment on above: Performed By: #### R AQUACULTURE FARMER ####[address] [place], [place] [phone] Director: Brandan Ugalde MD Coronavirus OC43 Not detected Normal [facility] Comment on above: Performed By: #### R AQUACULTURE FARMER ####[address] [place], [place] [phone] Director: Brandan Ugalde MD Human Metapneumo Not detected Normal [facility] Comment on above: Performed By: #### R AQUACULTURE FARMER ####[address] [phone] Director: Brandan Ugalde MD Influenza A Not detected Normal [facility] Comment on above: Performed By: #### R AQUACULTURE FARMER ####[address] [phone] Director: Brandan Ugalde MD Influenza B Not detected Normal [facility] Comment on above: Performed By: #### R AQUACULTURE FARMER ####[address] [phone] Director: Brandan Ugalde MD Mycoplas.pneumoniae Not detected Normal [facility] Comment on above: Result Comment: Perf ormed by multiplexed nucleic acid assay. Performed By: #### R AQUACULTURE FARMER ####[address] [address] Lab Director: Brandan Ugalde MD Parainfluenza 1 Not detected Normal [facility] Comment on above: Performed By: #### R AQUACULTURE FARMER ####[address] [phone] Director: Brandan Ugalde MD Parainfluenza 2 Not detected Normal [facility] Comment on above: Performed By: #### R AQUACULTURE FARMER ####[address] [phone] Director: Brandan Ugalde MD Parainfluenza 3 Not detected Normal [facility] Comment on above: Performed By: #### R AQUACULTURE FARMER ####[address] [phone] Director: Brandan Ugalde MD Parainfluenza 4 Not detected Normal [facility] Comment on above: Performed By: #### R AQUACULTURE FARMER ####[address] [phone] Director: Brandan Ugalde MD Resp Syncytial Virus Not detected Normal [facility] Comment on above: Performed By: #### R AQUACULTURE FARMER ####[address] [phone] Director: Brandan Ugalde MD Rhino/Enterovirus Not detected Normal [facility] Comment on above: Performed By: #### R AQUACULTURE FARMER ####[address] [phone] Director: Brandan Ugalde MD SARS-CoV-2 (COVID-19) RNA ARUN+probe Ql (Unsp spec) Not detected Normal [facility] Comment on above: Performed By: #### R AQUACULTURE FARMER ####[address] [phone] Director: Brandan Ugalde MD Influenza A H1 NOT REPORTED Normal [facility] Comment on above: Performed By: #### R AQUACULTURE FARMER ####[address] [phone] Director: Brandan Ugalde MD Influenza A H1-2009 NOT REPORTED Normal [facility] Comment on above: Performed By: #### R AQUACULTURE FARMER ####[address] [phone] Director: Brandan Ugalde MD Influenza A H3 NOT REPORTED Normal [facility] Comment on above: Performed By: #### R AQUACULTURE FARMER ####[address] [place] [address] Lab Director: Brandan Ugalde MD Source: .NASOPHARYNGEAL SWAB Normal [facility] Comment on above: Performed By: #### R AQUACULTURE FARMER ####[facility] [address] [place] [address] lab Director: Brandan Ugalde MD Respiratory Panel, Molecular , with COVID-19 (Restricted: peds pts or suitable admitted adults)on 10-01-2021 Adenovirus PCR Not detected Not Detected B Pertussis by PCR Not detected Not Detected [facility] Bordetella Parapertussis Not detected Not Detected Chlamydia pneumoniae By PCR Not detected Not Detected Coronavirus 229E PCR Not detected Not Detected Coronavirus HKU1 PCR Not detected Not Detected Coronavirus NL63 PCR Not detected Not Detected Coronavirus OC43 PCR Not detected Not Detected Human Metapneumovirus PCR Not detected Not Detected Influenza A by PCR Not detected Not Detected [facility] Influenza A H1 (2009) PCR NOT REPORTED Not Detected Influenza A H1 PCR NOT REPORTED Not Detected [facility] Influenza A H3 PCR NOT REPORTED Not Detected [facility] Influenza B by PCR Not detected Not Detected [facility] Mycoplasma pneumo by PCR Not detected Not Detected Comment on above: Performed by multipl exed nucleic acid assay. Parainfluenza 1 PCR Not detected Not Detected [facility] Parainfluenza 2 PCR Not detected Not Detected [facility] Parainfluenza 3 PCR Not detected Not Detected [facility] Parainfluenza 4 PCR Not detected Not Detected [facility] Resp Syncytial Virus PCR Not detected Not Detected Rhino/Enterovirus PCR Not detected Not Detected SARS-CoV-2 (COVID-19) RNA ARUN+probe Ql (Unsp spec) Not detected Not Detected Specimen Description .NASOPHARYNGEAL SWAB [facility] Retic Counton 10-01-2021 Absolute Retic 0.070 M/uL Normal 0.030-0.[address] [facility] Comment on above: Performed By: #### P TT, FIB, PT, LYTE, DBILI, TBIL, RETCT, CBC, LD, HAPT, PATH ####[address] [place] [address] Lab Director: Brandan Ugalde MD IRF 9.500 % Normal 2.7-18.[address] [facility] Comment on above: Performed By: #### P TT, FIB, PT, LYTE, DBILI, TBIL, RETCT, CBC, LD, HAPT, PATH ####[address] [address] lab Director: Brandan Ugalde MD Retic Count 1.8 % Normal 0.5-1.[address] [facility] Comment on above: Performed By: #### P TT, FIB, PT, LYTE, DBILI, TBIL, RETCT, CBC, LD, HAPT, PATH ####[address] [address] lab Director: Brandan Ugalde MD Retic Hemoglobin 33.5 pg Normal 28.2-35.7 [facility] Comment on above: Performed By: #### P TT, FIB, PT, LYTE, DBILI, TBIL, RETCT, CBC, LD, HAPT, PATH ####[address] [address] lab Director: Brandan Ugalde MD Reticulocyteson 10-01-2021 Absolute Retic # 0.070 [facility] Immature Retic Fract 9.5 % 2.7 - 18.3 % [facility] Retic % 1.8 % 0.5 - 1.9 % Retic Hemoglobin 33.5 pg 28.2 - 35.7 pg [facility] SODIUM, URINE, RANDOMon 09-05 Sodium (U) [Moles/Vol] 27 mmol/L Comment on above: No normal range esta blished. Sodium, Random Uron 10-01-19 Sodium (U) [Moles/Vol] 27 mmol/L Normal [facility] Comment on above: Result Comment: No n ormal range established. Performed By: #### U A, UMICAO #### [facility] [facility] [place], [place] [phone] Injection Molding Process Technician: Brandan Ugalde MD Stool PCR Batteryon 10-01-19 Specimen Description .FECES Normal [facility] Comment on above: Performed By: #### U A, UMICAO #### [facility] [address] [place] [address] [phone] Injection Molding Process Technician: Brandan Ugalde MD Surgical Pathologyon 022 Surgical Pathology (NOTE) [id number] [facility] ANATOMIC PATHOLOGY [address] [place] [phone] SURGICAL PATHOLOGY CONSULTATION Patient Name: CARISSA LOZADA MR#: [id number] Specimen #[id number] Procedures/Addenda PERIPHERAL BLOOD REPORT Date Ordered: 10/04/2021 Status: Signed Out Date Complete: 10/04/2021 By: Horacio Vila M.D. Date Reported: 10/04/2021 INTERPRETATION Peripheral blood: - Normocytic anemia (hemoglobin 10.9 g/dL), hypoproliferative. Recommend correlation with ferritin and other iron studies. RESULTS-COMMENTS PERIPHERAL BLOOD STUDY CBC: Please see the electronic health record for CBC parameters ([id number], 10/01/21, 08:59). PLATELETS: Platelets show normal morphology. The platelet count is 141 k/microliter. LEUKOCYTES: White blood cells show normal morphology. There are no blasts. ERYTHROCYTES: Red blood cells show normal morphology. The absolute reticulocyte count is not increased. Note: The electronic health record is reviewed. Horacio Vila M.D. Source: A: PERIPHERAL BLOOD Normal [facility] Comment on above: Performed By: #### U A, UMICAO #### [facility] [address] [place] [address] [phone] Injection Molding Process Technician: Brandan Ugalde MD URINALYSIS WITH MICROSCOPICo n 10-01-2021 - Amorphous, UA NOT REPORTED None [facility] Bacteria, UA NOT REPORTED None [facility] Bilirubin Urine Negative NEGATIVE [facility] Casts UA 0 TO 2 HYALINE Reference range defined for non-centrifuged specimen. [facility] [employer] Color, UA Yellow Yellow [facility] [employer] Crystals, UA NOT REPORTED None /HPF [facility] th Epithelial Cells UA 0 TO 2 [facility] [employer] Glucose, Ur TRACE Abnormal NEGATIVE [facility] [employer] Interpretation and review of laboratory results Abnormal [facility] [employer] Ketones Ql (U) Negative NEGATIVE [facility] Leukocyte esterase Test strip Ql (U) Negative NEGATIVE [facility] [employer] Mucus, UA NOT REPORTED None Nitrite, Urine Negative NEGATIVE [facility] th Other Observations UA NOT REPORTED NOT REQ. M [facility] pH, UA 5.5 [facility] [employer] Protein, UA TRACE Abnormal NEGATIVE [facility] [employer] RBC, UA 0 TO 2 Renal Epithelial, UA NOT REPORTED 0 /HPF [facility] Specific [place], UA 1.006 [facility] [employer] Trichomonas, UA NOT REPORTED None [facility] ealt Turbidity UA Clear Clear [facility] [employer] Urine Hgb SMALL Abnormal NEGATIVE [facility] [employer] Urobilinogen, Urine Normal Normal [facility] [employer] WBC, UA 2 TO 5 [facility] Comment on above: CORRECTED ON 10/01 A T 1024: PREVIOUSLY REPORTED 5 TO 10 Yeast, UA MANY Abnormal None [facility] [employer] Urinalysis w/ Microon 2021 Urine RBC's 0 TO 2 Normal 0-[address] [facility] Comment on above: Performed By: #### U AMIC ####[facility] [id number] [place] [address] Lab Director: Brandan Ugalde MD Urine WBC's 2 TO 5 Normal 0-[address] [facility] Comment on above: Result Comment: MERT ECTED ON 10/01 AT 1024: PREVIOUSLY REPORTED 5 TO 10 Performed By: #### U AMIC ####[facility] [id number] [place] [address] Lab Director: Brandan Ugalde MD Yeast MANY Abnormal NONE [facility] Comment on above: Performed By: #### U AMIC ####[facility] [address] [place] [address] Lab Director: Brandan Ugalde MD ----- Normal [facility] Comment on above: Performed By: #### U AMIC ####[address] [address] Lab Director: Brandan Ugalde MD Bilirubin, SemiQt,Ur Negative Normal NEG [facility] Comment on above: Performed By: #### U AMIC ####[address] [address] Lab Director: Brandan Ugalde MD Blood, Urine SMALL Abnormal NEG [facility] Comment on above: Performed By: #### U AMIC ####[address] [phone] Director: Brandan Ugalde MD Casts 0 TO 2 HYALINE Normal 0-[address] [facility] Comment on above: Result Comment: Refe rence range defined for non-centrifuged specimen. Performed By: #### U AMIC ####[address] [phone] Director: Brandan Ugalde MD Clarity (U) Clear Normal CLEAR [facility] Comment on above: Performed By: #### U AMIC ####[address] [phone] Director: Brandan Ugalde MD Color (U) Yellow Normal YEL [facility] Comment on above: Performed By: #### U AMIC ####[address] [phone] Director: Brandan Ugalde MD Epithelial cells LM Ql (Urine sed) 0 TO 2 Normal 0-[address] [facility] Comment on above: Performed By: #### U AMIC ####[address] [phone] Director: Brandan Ugalde MD Glucose Ql (U) TRACE Abnormal NEG [facility] Comment on above: Performed By: #### U AMIC ####[facility] [place], [place] [phone] Director: Brandan Ugalde MD Ketones Ql (U) Negative Normal NEG [facility] Comment on above: Performed By: #### U AMIC ####[facility] [place], [place] [phone] Director: Brandan Ugalde MD Leukocyte esterase Test strip Ql (U) Negative Normal NEG [facility] Comment on above: Performed By: #### U AMIC ####[address] [phone] Director: Brandan Ugalde MD Nitrite,Ur Negative Normal NEG [facility] Comment on above: Performed By: #### U AMIC ####[address] [phone] Director: Brandan Ugalde MD PH,Ur 5.5 Normal 5.0-8.[address] [facility] Comment on above: Performed By: #### U AMIC ####[address] [phone] Director: Brandan Ugalde MD Protein Ql (U) TRACE Abnormal NEG [facility] Comment on above: Performed By: #### U AMIC ####[address] [phone] Director: Brandan Ugalde MD Spec. [place],Ur 1.006 Normal 1.005-1.[address] [facility] Comment on above: Performed By: #### U AMIC ####[address] [phone] Director: Brandan Ugalde MD Urobilinogen,Ur Normal Normal NORM [facility] Comment on above: Performed By: #### U AMIC ####[address] [phone] Lab Director: Brandan Ugalde MD BLOOD GAS, VENOUSon 09-30-19 22 Josh Test NOT REPORTED Carboxyhemoglobin 1.5 % 0 - 5 % [facility] ealt Comment on above: Reference Range: Non-Smokers 0-2% Average Smoker 2-4% Heavy Smoker <10% FIO2 INFORMATION NOT PROVIDED [facility] [employer] HCO3 (Bld) [Moles/Vol] 17.6 mmol/L Low 24 - 30 mmol/L Interpretation and review of laboratory results Abnormal Methemoglobin NOT REPORTED 0.0 - 1.5 % [facility] alth Mode NOT REPORTED Negative Base Excess, Earnest 8.6 mmol/L High 0.0 - 2.0 mmol/L NOTIFICATION NOT REPORTED [facility] NOTIFICATION TIME NOT REPORTED [facility] [employer] O2 Device/Flow/% NOT REPORTED Oxygen saturation in Blood 55.1 % Low 60.0 - 85.0 % Oxyhemoglobin NOT REPORTED 95.0 - 98.0 % pCO2, Earnest 41.1 pCO2, Earnest, Temp Adj NOT REPORTED [facility] Peep/Cpap NOT REPORTED pH, Earnest 7.255 Low pH, Earnest, Temp Adj NOT REPORTED pO2, Earnest 26.8 Low pO2, Earnest, Temp Adj NOT REPORTED [facility] Positive Base Excess, Earnest NOT REPORTED 0.0 - 2.0 mmol/L PSV NOT REPORTED Pt Temp 37.0 Pt. Position NOT REPORTED [facility] Respiratory Rate NOT REPORTED Sample Site NOT REPORTED [facility] h Set Rate NOT REPORTED Text for Respiratory NOT REPORTED [facility] Total Hb NOT REPORTED 12.0 - 16.0 g/dl Total Rate NOT REPORTED VT NOT REPORTED [facility] Basic Metab w/rfx MGon 09-30 Anion gap [Moles/Vol] 17 mmol/L Normal 9-17 [facility] Comment on above: Performed By: #### V BG #### [employer] [address] [place], [place] [phone] Injection Molding Process Technician: Brandan Ugalde MD Chloride [Moles/Vol] 119 mmol/L High 98-107 [facility] Comment on above: Performed By: #### V BG #### [address] [address] Injection Molding Process Technician: Brandan Ugalde MD CO2 [Moles/Vol] 11 mmol/L Low 20-[address] [facility] Comment on above: Performed By: #### V BG #### [address] [address] Injection Molding Process Technician: Brandan Ugalde MD Potassium [Moles/Vol] 4.2 mmol/L Normal 3.7-5.3 [facility] Comment on above: Result Comment: SPEC IMEN SLIGHTLY HEMOLYZED, RESULTS MAY BE ADVERSELY AFFECTED. Performed By: #### V BG #### [address] [address] Injection Molding Process Technician: Brandan Ugalde MD Sodium [Moles/Vol] 147 mmol/L High 135-[address] [facility] Comment on above: Result Comment: TEST CONFIRMED Performed By: #### V BG #### [address] [address] Injection Molding Process Technician: Brandan Ugalde MD (cont.) [facility] Comment on above: Result Comment: Aver age GFR for 40-49 years old: 99 mL/min/1.73sq m Chronic Kidney Disease: <60 mL/min/1.73sq m Kidney failure: <15 mL/min/1.73sq m eGFR calculated using average adult body mass. Additional eGFR calculator available at: http://www.Bonfaire.com/multiple_crcl_2012.htm Performed By: #### V BG #### [address] [address] Injection Molding Process Technician: Brandan Ugalde MD Calcium [Mass/Vol] 8.6 mg/dL Normal 8.6-10.[address] [facility] Comment on above: Performed By: #### V BG #### [facility] [employer] [address] [place] [address] Injection Molding Process Technician: Brandan Ugalde MD Creatinine [Mass/Vol] 2.06 mg/dL High 0.50-0.90 [facility] Comment on above: Performed By: #### V BG #### [facility] [employer] [address] [place] [address] Injection Molding Process Technician: Brandan Ugalde MD GFR, Amer 32 mL/min Low >60 [facility] Comment on above: Performed By: #### V BG #### [facility] [employer] [address] [place] [address] Injection Molding Process Technician: Brandan Ugalde MD GFR,non Amer 26 mL/min Low >60 [facility] Comment on above: Performed By: #### V BG #### [address] [address] Injection Molding Process Technician: Brandan Ugalde MD Glucose [Mass/Vol] 160 mg/dL High 70-[address] [facility] Comment on above: Performed By: #### V BG #### [facility] [employer] [address] [place] [address] Injection Molding Process Technician: Brandan Ugalde MD Urea nitrogen [Mass/Vol] 35 mg/dL High 6-[address] [facility] Comment on above: Performed By: #### V BG #### [facility] [employer] [address] [place] [address] Injection Molding Process Technician: Brandan Ugalde MD BUN/CRE Ratio NOT REPORTED Normal 9-[address] [facility] Comment on above: Performed By: #### V BG #### [facility] [employer] [address] [place] [address] Injection Molding Process Technician: Brandan Ugalde MD Staging: NOT REPORTED Normal [facility] Comment on above: Performed By: #### V BG #### [employer] [address] [place] [address] Injection Molding Process Technician: Brandan Ugalde MD Basic Metabolic Panelon 09-05 Anion gap [Moles/Vol] 13 mmol/L 9 - 17 mmol/L [employer] Calcium [Mass/Vol] 8.9 mg/dL 8.6 - 10.4 mg/dL [employer] Chloride [Moles/Vol] 119 mmol/L High 98 - 107 mmol/L [employer] CO2 [Moles/Vol] 13 mmol/L Low 20 - 31 mmol/L [employer] Creatinine [Mass/Vol] 2.05 mg/dL High 0.50 - 0.90 mg /dL [employer] GFR 32 mL/min Low >60 [facility] GFR Non- 27 mL/min Low >60 [employer] GFR/1.73 sq M.predicted MDRD (S/P/Bld) [Vol rate/Area] [facility] Comment on above: Average GFR for 40-4 9 years old: 99 mL/min/1.73sq m Chronic Kidney Disease: <60 mL/min/1.73sq m Kidney failure: <15 mL/min/1.73sq m eGFR calculated using average adult body mass. Additional eGFR calculator available at: http://www.Beijingyicheng/multiple_crcl_2012.htm GFR/1.73 sq M.predicted MDRD (S/P/Bld) [Vol rate/Area] NOT REPORTED [facility] Glucose [Mass/Vol] 162 mg/dL High 70 - 99 mg/dL [facility] [employer] Interpretation and review of laboratory results Abnormal [employer] Potassium [Moles/Vol] 3.4 mmol/L Low 3.7 - 5.3 mmol /L [employer] Sodium [Moles/Vol] 145 mmol/L High 135 - 144 mmol/L [employer] Urea nitrogen (BldV) [Mass/Vol] 35 mg/dL High 6 - 20 mg/dL [employer] Urea nitrogen/Creatinine (Bld) [Mass ratio] NOT REPORTED [facility] Basic Metabolic Panel w/ Ref maria de jesus to MGon 09-30-2021 Anion gap [Moles/Vol] 17 mmol/L 9 - 17 mmol/L [employer] Calcium [Mass/Vol] 8.6 mg/dL 8.6 - 10.4 mg/dL [facility] [employer] Chloride [Moles/Vol] 119 mmol/L High 98 - 107 mmol/L [facility] CO2 [Moles/Vol] 11 mmol/L Low 20 - 31 mmol/L [facility] [employer] Creatinine [Mass/Vol] 2.06 mg/dL High 0.50 - 0.90 mg /dL [facility] [employer] GFR 32 mL/min Low >60 [facility] GFR Non- 26 mL/min Low >60 [facility] [employer] GFR/1.73 sq M.predicted MDRD (S/P/Bld) [Vol rate/Area] Comment on above: Average GFR for 40-4 9 years old: 99 mL/min/1.73sq m Chronic Kidney Disease: <60 mL/min/1.73sq m Kidney failure: <15 mL/min/1.73sq m eGFR calculated using average adult body mass. Additional eGFR calculator available at: http://www.Beijingyicheng/multiple_crcl_2012.htm GFR/1.73 sq M.predicted MDRD (S/P/Bld) [Vol rate/Area] NOT REPORTED Glucose [Mass/Vol] 160 mg/dL High 70 - 99 mg/dL [facility] [employer] Interpretation and review of laboratory results Abnormal [facility] [employer] Potassium [Moles/Vol] 4.2 mmol/L 3.7 - 5.3 mmol /L Comment on above: SPECIMEN SLIGHTLY HE MOLYZED, RESULTS MAY BE ADVERSELY AFFECTED. Sodium [Moles/Vol] 147 mmol/L High 135 - 144 mmol/L Comment on above: TEST CONFIRMED Urea nitrogen (BldV) [Mass/Vol] 35 mg/dL High 6 - 20 mg/dL Urea nitrogen/Creatinine (Bld) [Mass ratio] NOT REPORTED [facility] [employer] Basic Metabolic Profon 09-30 (cont.) Normal [facility] Comment on above: Result Comment: Aver age GFR for 40-49 years old: 99 mL/min/1.73sq m Chronic Kidney Disease: <60 mL/min/1.73sq m Kidney failure: <15 mL/min/1.73sq m eGFR calculated using average adult body mass. Additional eGFR calculator available at: http://www.[employer]faire.[employer]multiple_crcl_2012.htm Performed By: #### V BG #### [address] [address] Injection Molding Process Technician: Brandan Ugalde MD Anion gap [Moles/Vol] 13 mmol/L Normal 9-17 [facility] Comment on above: Performed By: #### V BG #### [address] [address] Injection Molding Process Technician: Brandan Ugalde MD Calcium [Mass/Vol] 8.9 mg/dL Normal 8.6-10.[address] [facility] Comment on above: Performed By: #### V BG #### [address] [address] Injection Molding Process Technician: Brandan Ugalde MD Chloride [Moles/Vol] 119 mmol/L High 98-107 [facility] Comment on above: Performed By: #### V BG #### [address] [address] Injection Molding Process Technician: Brandan Ugalde MD CO2 [Moles/Vol] 13 mmol/L Low 20-[address] [facility] Comment on above: Performed By: #### V BG #### [address] [address] Injection Molding Process Technician: Brandan Ugalde MD Creatinine [Mass/Vol] 2.05 mg/dL High 0.50-0.90 [facility] Comment on above: Performed By: #### V BG #### [address] [address] Injection Molding Process Technician: Brandan Ugalde MD GFR, Amer 32 mL/min Low >60 [facility] Comment on above: Performed By: #### V BG #### [address] [address] Injection Molding Process Technician: Brandan Ugalde MD GFR,non Amer 27 mL/min Low >60 [facility] Comment on above: Performed By: #### V BG #### [address] [address] Injection Molding Process Technician: Brandan Ugalde MD Glucose [Mass/Vol] 162 mg/dL High 70-[address] [facility] Comment on above: Performed By: #### V BG #### [address] [address] Injection Molding Process Technician: Brandan Ugalde MD Potassium [Moles/Vol] 3.4 mmol/L Low 3.7-5.3 [facility] Comment on above: Performed By: #### V BG #### [address] [address] Injection Molding Process Technician: Brandan Ugalde MD Sodium [Moles/Vol] 145 mmol/L High 135-[address] [facility] Comment on above: Performed By: #### V BG #### [address] [address] Injection Molding Process Technician: Brandan Ugalde MD Urea nitrogen [Mass/Vol] 35 mg/dL High 6-[address] [facility] Comment on above: Performed By: #### V BG #### [address] [address] Injection Molding Process Technician: Brandan Ugalde MD BUN/CRE Ratio NOT REPORTED Normal 9-[address] [facility] Comment on above: Performed By: #### V BG #### [address] [address] Injection Molding Process Technician: Brandan Ugalde MD Staging: NOT REPORTED Normal [facility] Comment on above: Performed By: #### V BG #### [address] [address] Injection Molding Process Technician: Brandan Ugalde MD CBC Auto Differentialon 09-05 Absolute Eos # 0.03 [facility] th Absolute Immature Granulocyte 0.05 Absolute Lymph # 1.19 [facility] He alth Absolute [facility] # 0.43 [facility] Hea lth Basophils (Bld) [#/Vol] 10*3/uL [facility] [employer] Basophils/100 WBC (Bld) 0 % 0 - 2 % [facility] [employer] Differential Type NOT REPORTED Eosinophils/100 WBC (Bld) 1 % 1 - 4 % Hematocrit (Bld) [Volume fraction] 30.9 % Low 36.3 - 47.1 % Hemoglobin.gastrointe stinal spec 1 Ql (Stl) 10.2 g/dL Low 11.9 - 15.1 g/dL [facility] [employer] Immature granulocytes/100 WBC (Bld) 1 % High 0 [facility] [employer] Interpretation and review of laboratory results Abnormal [facility] [employer] Lymphocytes/100 WBC (Bld) 28 % 24 - 43 % [facility] [employer] MCH (RBC) [Entitic mass] 29.1 pg 25.2 - 33.5 pg MCHC (RBC) [Mass/Vol] 33.0 g/dL 28.4 - 34.8 g/ dL MCV (RBC) [Entitic vol] 88.0 fL 82.6 - 102.9 fL [facility] [employer] Monocytes/100 WBC (Bld) 10 % 3 - 12 % [facility] [employer] NRBC Automated 0.0 0.0 per 100 WBC [facility] [employer] Platelet distribution width (Bld) [Ratio] 14.2 % 11.8 - 14.4 % [facility] [employer] Platelet Estimate NOT REPORTED [facility] [employer] Platelet mean volume (Bld) [Entitic vol] 8.5 fL 8.1 - 13.5 fL [facility] [employer] Platelets (Bld) [#/Vol] 70 10*3/uL Low [facility] [employer] RBC (Bld) [#/Vol] 3.51 10*6/uL Low 3.95 - 5.11 m/uL [facility] [employer] RBC (Bld) [#/Vol] NOT REPORTED [facility] [employer] Segmented neutrophils/100 WBC (Bld) 60 % 36 - 65 % [facility] [employer] Segs [facility].60 [facility] [#/Vol] 4.3 10*3/uL WBC (Bld) [#/Vol] NOT REPORTED [facility] CBC with Diffon 09-30-2021 Abs. Basophil <0.03 Normal 0.00-0.[address] [facility] Comment on above: Performed By: #### V BG #### [address] [address] Injection Molding Process Technician: Brandan Ugalde MD Abs.Imm.Granulocyte 0.05 k/uL Normal 0.00-0.[address] [facility] Comment on above: Performed By: #### V BG #### [address] [address] Injection Molding Process Technician: Brandan Ugalde MD Abs.Neutrophil (Seg) 2.60 k/uL Normal 1.50-8.10 [facility] Comment on above: Performed By: #### V BG #### [address] [address] Injection Molding Process Technician: Brandan Ugalde MD Basophils/100 WBC (Bld) 0 % Normal 0-[address] [facility] Comment on above: Performed By: #### V BG #### [address] [address] Injection Molding Process Technician: Brandan Ugalde MD Eosinophils (Bld) [#/Vol] 0.03 10*3/uL Normal 0.00-0.[address] [facility] Comment on above: Performed By: #### V BG #### [address] [address] Injection Molding Process Technician: Brandan Ugalde MD Eosinophils/100 WBC (Bld) 1 % Normal 1-[address] [facility] Comment on above: Performed By: #### V BG #### [address] [address] Injection Molding Process Technician: Brandan Ugalde MD Erythrocyte distribution width (RBC) [Ratio] 14.2 % Normal 11.8-14.[address] [facility] Comment on above: Performed By: #### V BG #### [address] [address] Injection Molding Process Technician: Brandan Ugalde MD Hematocrit (Bld) [Volume fraction] 30.9 % Low 36.3-47.[address] [facility] Comment on above: Performed By: #### V BG #### [address] [address] Injection Molding Process Technician: Brandan Ugalde MD Hemoglobin (Bld) [Mass/Vol] 10.2 g/dL Low 11.9-15.[address] [facility] Comment on above: Performed By: #### V BG #### [address] [address] Injection Molding Process Technician: Brandan Ugalde MD Immature granulocytes/100 WBC (Bld) 1 % High [address] [facility] Comment on above: Performed By: #### V BG #### [address] [address] Injection Molding Process Technician: Brandan Ugalde MD Lymphocytes (Bld) [#/Vol] 1.19 10*3/uL Normal 1.10-3.[address] [facility] Comment on above: Performed By: #### V BG #### [address] [address] Injection Molding Process Technician: Brandan Ugalde MD Lymphocytes/100 WBC (Bld) 28 % Normal 24-[address] [facility] Comment on above: Performed By: #### V BG #### [address] [address] Injection Molding Process Technician: Brandan Ugalde MD MCH (RBC) [Entitic mass] 29.1 pg Normal 25.2-33.[address] [facility] Comment on above: Performed By: #### V BG #### [address] [address] Injection Molding Process Technician: Brandan Ugalde MD MCHC (RBC) [Mass/Vol] 33.0 g/dL Normal 28.4-34.8 [facility] Comment on above: Performed By: #### V BG #### [address] [address] Injection Molding Process Technician: Brandan Ugalde MD MCV (RBC) [Entitic vol] 88.0 fL Normal 82.6-102.[address] [facility] Comment on above: Performed By: #### V BG #### [address] [address] Injection Molding Process Technician: Brandan Ugalde MD Monocytes (Bld) [#/Vol] 0.43 10*3/uL Normal 0.10-1.[address] [facility] Comment on above: Performed By: #### V BG #### [place] [address] Injection Molding Process Technician: Brandan Ugalde MD Monocytes/100 WBC (Bld) 10 % Normal 3-[address] [facility] Comment on above: Performed By: #### V BG #### [address] [address] Injection Molding Process Technician: Brandan Ugalde MD Neutrophil (Seg) 60 % Normal 36-65 [facility] Comment on above: Performed By: #### V BG #### [address] [address] Injection Molding Process Technician: Brandan Ugalde MD NRBC Automated 0.0 per 100 WBC Normal 0.[address] [facility] Comment on above: Performed By: #### V BG #### [address] [address] Injection Molding Process Technician: Brandan Ugalde MD Platelet mean volume (Bld) [Entitic vol] 8.5 fL Normal 8.1-13.[address] [facility] Comment on above: Performed By: #### V BG #### [address] [address] Injection Molding Process Technician: Brandan Ugalde MD Platelets (Bld) [#/Vol] 70 10*3/uL Low 138-[address] [facility] Comment on above: Performed By: #### V BG #### [address] [address] Injection Molding Process Technician: Brandan Ugalde MD RBC (Bld) [#/Vol] 3.51 10*6/uL Low 3.95-5.[address] [facility] Comment on above: Performed By: #### V BG #### [address] [address] Injection Molding Process Technician: Brandan Ugalde MD WBC (Bld) [#/Vol] 4.3 10*3/uL Normal 3.5-11.[address] [facility] Comment on above: Performed By: #### V BG #### [address] [address] Injection Molding Process Technician: Brandan Ugalde MD Auto Diff Performed NOT REPORTED Normal [facility] Comment on above: Performed By: #### V BG #### [address] [address] Injection Molding Process Technician: Brandan Ugalde MD Platelet Comment NOT REPORTED Normal [facility] Comment on above: Performed By: #### V BG #### [address] [address] Injection Molding Process Technician: Brandan Ugalde MD RBC morphology finding Nom (Bld) NOT REPORTED Normal [facility] Comment on above: Performed By: #### V BG #### [address] [address] Injection Molding Process Technician: Brandan Ugalde MD WBC Morphology NOT REPORTED Normal [facility] Comment on above: Performed By: #### V BG #### [facility] [address] [place], [place] [id number] Injection Molding Process Technician: Brandan Ugalde MD Cult,Urineon 09-30-2021 Cult,Urine Specimen Description .CLEAN CATCH URINE Special Requests NOT REPORTED Culture YEAST, NOT SHENG ALBICANS OR SHENG DUBLINIENSIS 10 to 50,000 CFU/ML YEAST, NOT SHENG ALBICANS OR SHENG DUBLINIENSIS 10 to 50,000 CFU/ML DIFFERENT COLONY MORPHOLOGY Report Status FINAL 09/30/[address] [facility] Comment on above: Performed By: #### V BG #### [facility] [address] [place] [address] Injection Molding Process Technician: Brandan Ugalde MD Culture, Urineon 09-30-2021 Bacteria identified Cx Nom (U) YEAST, NOT SHENG ALBICANS OR SHENG DUBLINIENSIS 10 to 50,000 CFU/ML Abnormal [employer] Bacteria identified Cx Nom (U) YEAST, NOT SHENG ALBICANS OR SHENG DUBLINIENSIS 10 to 50,000 CFU/ML DIFFERENT COLONY MORPHOLOGY Abnormal [facility] Interpretation and review of laboratory results Abnormal [facility] Special Requests NOT REPORTED [employer] Specimen Description .CLEAN CATCH URINE [facility] [employer] Electro[employer]te Panelon 09-30-19 Anion gap [Moles/Vol] 11 mmol/L 9 - 17 mmol/L [employer] Chloride [Moles/Vol] 115 mmol/L High 98 - 107 mmol/L [facility] CO2 [Moles/Vol] 16 mmol/L Low 20 - 31 mmol/L [facility] Interpretation and review of laboratory results Abnormal [employer] Potassium [Moles/Vol] 3.5 mmol/L Low 3.7 - 5.3 mmol /L [employer] Sodium [Moles/Vol] 142 mmol/L 135 - 144 mmol/L [facility] [employer] By [employer] Electrolyteson 09-30-2021 Anion gap [Moles/Vol] 11 mmol/L Normal 9-17 [facility] Comment on above: Performed By: #### V BG #### [employer] [address] [place], [place] [phone] Injection Molding Process Technician: Brandan Ugalde MD Chloride [Moles/Vol] 115 mmol/L High 98-107 [facility] Comment on above: Performed By: #### V BG #### [address] [address] Injection Molding Process Technician: Brandan Ugalde MD CO2 [Moles/Vol] 16 mmol/L Low 20-[address] [facility] Comment on above: Performed By: #### V BG #### [address] [address] Injection Molding Process Technician: Brandan Ugalde MD Potassium [Moles/Vol] 3.5 mmol/L Low 3.7-5.3 [facility] Comment on above: Performed By: #### V BG #### [address] [address] Injection Molding Process Technician: Brandan Ugalde MD Sodium [Moles/Vol] 142 mmol/L Normal 135-[address] [facility] Comment on above: Performed By: #### V BG #### [address] [address] Injection Molding Process Technician: Brandan Ugalde MD Hemoglobin A1Con 09-30-2021 Glucose [Mass/Vol] 390 mg/dL Normal [facility] Comment on above: Result Comment: The ADA and AACC recommend providing the estimated average glucose result to permit better patient understanding of their HBA1c result. Performed By: #### V BG #### [address] [address] Injection Molding Process Technician: Brandan Ugalde MD HbA1c (Bld) [Mass fraction] 15.2 % High 4.0-6.[address] [facility] Comment on above: Performed By: #### V BG #### [address] [address] Injection Molding Process Technician: Brandan Ugalde MD Glucose [Mass/Vol] 390 mg/dL Comment on above: The ADA and AACC rec ommend providing the estimated average glucose result to permit better patient understanding of their HBA1c result. HbA1c (Bld) [Mass fraction] 15.2 % High 4.0 - 6.0 % Interpretation and review of laboratory results Abnormal [facility] MAGNESIUMon 09-30-2021 Magnesium [Mass/Vol] 1.8 mg/dL 1.6 - 2.6 mg/dL Magnesiumon 09-30-2021 Magnesium [Mass/Vol] 1.8 mg/dL Normal 1.6-2.6 [facility] Comment on above: Performed By: #### V BG #### [employer] [address] [place], [place] [phone] Injection Molding Process Technician: Brandan Ugalde MD No Panel Informationon 09-30 POC Glucose Fingerstickon Glucose [Mass/Vol] 150 mg/dL High 65 - 105 mg/dL [facility] Interpretation and review of laboratory results Abnormal [facility] Glucose [Mass/Vol] 177 mg/dL High 65 - 105 mg/dL [facility] Interpretation and review of laboratory results Abnormal [facility] Glucose [Mass/Vol] 148 mg/dL High 65 - 105 mg/dL [facility] Interpretation and review of laboratory results Abnormal [facility] Glucose [Mass/Vol] 210 mg/dL High 65 - 105 mg/dL [facility] Interpretation and review of laboratory results Abnormal [facility] SPECIMEN REJECTIONon 022 - NOT REPORTED Ordered Test CDP Reason for Rejection Unable to perform testing: Specimen clotted. [facility] [employer] Comment on above: GEORGINA MONTERO NOTIFIED Specimen source Nom (Unsp spec) .BLOOD [facility] Specimen Rejectionon 022 Reason for rejection Unable to perform testing: Specimen clotted. Normal [facility] Comment on above: Result Comment: GEORGINA MEDINA NOTIFIED Performed By: #### V BG #### [employer] [facility] [place], [place] [phone] Injection Molding Process Technician: Brandan Ugalde MD Source of sample .BLOOD Normal [facility] Comment on above: Performed By: #### V BG #### [employer] [address] [place] [address] Injection Molding Process Technician: Brandan Ugalde MD Test ordered CDP Normal [facility] Comment on above: Performed By: #### V BG #### [facility] [address] [place] [address] Injection Molding Process Technician: Brandan Ugalde MD ----- NOT REPORTED Normal [facility] Comment on above: Performed By: #### V BG #### [address] [address] Injection Molding Process Technician: Brandan Ugalde MD Urinalysis w/ Microon 2021 Amorphous sediment LM Ql (Urine sed) NOT REPORTED Normal NONE [facility] Comment on above: Performed By: #### U AMIC ####[address] [phone] Director: Brandan Ugalde MD Bacteria NOT REPORTED Normal [facility] Comment on above: Performed By: #### U AMIC ####[address] [phone] Director: Brandan Ugalde MD Crystals LM Nom (Urine sed) NOT REPORTED Normal NONE [facility] Comment on above: Performed By: #### U AMIC ####[address] [phone] Director: Brandan Ugalde MD Epithelial, Renal NOT REPORTED Normal [address] [facility] Comment on above: Performed By: #### U AMIC ####[address] [phone] Director: Brandan Ugalde MD Mucus Strands NOT REPORTED Normal [facility] Comment on above: Performed By: #### U AMIC ####[address] [phone] Director: Brandan Ugalde MD Other Observations NOT REPORTED Normal [facility] Comment on above: Performed By: #### U AMIC ####[address] [address] Lab Director: Brandan Ugalde MD Trichomonas NOT REPORTED Normal NONE [facility] Comment on above: Performed By: #### U AMIC ####[address] [address] Lab Director: Brandan Ugalde MD Venous Blood Gaseson 022 Body Temp. 37.[address] [facility] Comment on above: Performed By: #### V BG #### [facility] [employer] [address] [place] [address] Injection Molding Process Technician: Brandan Ugalde MD Carboxy Hgb 1.5 % Normal 0-[address] [facility] Comment on above: Result Comment: Reference Range: Non-Smokers 0-2% Average Smoker 2-4% Heavy Smoker <10% Performed By: #### V BG #### [facility] [employer] [address] [place] [address] Injection Molding Process Technician: Brandan Ugalde MD FIO2 INFORMATION NOT PROVIDED Normal [facility] Comment on above: Performed By: #### V BG #### [facility] [employer] [address] [place] [address] Injection Molding Process Technician: Brandan Ugalde MD HCO3 (Bld) [Moles/Vol] 17.6 mmol/L Low 24-[address] [facility] Comment on above: Performed By: #### V BG #### [facility] [employer] [address] [place] [address] Injection Molding Process Technician: Brandan Ugalde MD Negative Base Excess 8.6 mmol/L High 0.0-2.0 [facility] Comment on above: Performed By: #### V BG #### [facility] [employer] [address] [place] [address] Injection Molding Process Technician: Brandan Ugalde MD Oxygen (Bld) [Partial pressure] 26.8 mm[Hg] Low 30-[address] [facility] Comment on above: Performed By: #### V BG #### [address] [address] Injection Molding Process Technician: Brandan Ugalde MD Oxygen saturation in Blood 55.1 % Low 60.0-85.[address] [facility] Comment on above: Performed By: #### V BG #### [facility] [employer] [address] [place] [address] Injection Molding Process Technician: Brandan Ugalde MD pCO2 41.1 Normal 39-[address] [facility] Comment on above: Performed By: #### V BG #### [address] [address] Injection Molding Process Technician: Brandan Ugalde MD pH (Bld) 7.255 [pH] Low 7.320-7.[address] [facility] Comment on above: Performed By: #### V BG #### [address] [address] Injection Molding Process Technician: Brandan Ugalde MD Josh Test NOT REPORTED Normal [facility] Comment on above: Performed By: #### V BG #### [address] [address] Injection Molding Process Technician: Brandan Ugalde MD Methemoglobin NOT REPORTED Normal 0.0-1.[address] [facility] Comment on above: Performed By: #### V BG #### [facility] [employer] [address] [place] [address] Injection Molding Process Technician: Brandan Ugalde MD Mode NOT REPORTED Normal [facility] Comment on above: Performed By: #### V BG #### [address] [address] Injection Molding Process Technician: Brandan Ugalde MD Notification Time NOT REPORTED Normal [facility] Comment on above: Performed By: #### V BG #### [address] [address] Injection Molding Process Technician: Brandan Ugalde MD Notification: NOT REPORTED Normal [facility] Comment on above: Performed By: #### V BG #### [address] [address] Injection Molding Process Technician: Brandan Ugalde MD O2 Device/Flow/% NOT REPORTED Normal [facility] Comment on above: Performed By: #### V BG #### [address] [address] Injection Molding Process Technician: Brandan Ugalde MD Oxyhemoglobin NOT REPORTED Normal 95.0-98.[address] [facility] Comment on above: Performed By: #### V BG #### [address] [address] Injection Molding Process Technician: Brandan Ugalde MD Pco2 Adj'd for Temp. NOT REPORTED Normal 39-55 [facility] Comment on above: Performed By: #### V BG #### [address] [address] Injection Molding Process Technician: Brandan Ugalde MD PEEP/CPAP NOT REPORTED Normal [facility] Comment on above: Performed By: #### V BG #### [facility] [employer] [address] [place] [address] Injection Molding Process Technician: Brandan Ugalde MD pH Adjst'd for Temp. NOT REPORTED Normal 7.320-7.420 [facility] Comment on above: Performed By: #### V BG #### [facility] [employer] [address] [place] [address] Injection Molding Process Technician: Brandan Ugalde MD pO2 Adj'd for Temp. NOT REPORTED Normal 30-50 [facility] Comment on above: Performed By: #### V BG #### [facility] [employer] [address] [place] [address] Injection Molding Process Technician: Brandan Ugalde MD Positive Base Excess NOT REPORTED Normal 0.0-2.0 [facility] Comment on above: Performed By: #### V BG #### [address] [address] Injection Molding Process Technician: Brandan Ugalde MD PSV NOT REPORTED Normal [facility] Comment on above: Performed By: #### V BG #### [address] [address] Injection Molding Process Technician: Brandan Ugalde MD Pt. Position NOT REPORTED Normal [facility] Comment on above: Performed By: #### V BG #### [address] [address] Injection Molding Process Technician: Brandan Ugalde MD Respiratory Rate NOT REPORTED Normal [facility] Comment on above: Performed By: #### V BG #### [address] [address] Injection Molding Process Technician: Brandan Ugalde MD Set Rate NOT REPORTED Normal [facility] Comment on above: Performed By: #### V BG #### [address] [address] Injection Molding Process Technician: Brandan Ugalde MD Site Drawn NOT REPORTED Normal [facility] Comment on above: Performed By: #### V BG #### [address] [address] Injection Molding Process Technician: Brandan Ugalde MD Text for Respiratory NOT REPORTED Normal [facility] Comment on above: Performed By: #### V BG #### [address] [address] Injection Molding Process Technician: Brandan Ugalde MD Total Hb NOT REPORTED Normal 12.0-16.[address] [facility] Comment on above: Performed By: #### V BG #### [facility] [address] [place], [place] [phone] Injection Molding Process Technician: Brandan Ugalde MD Total Rate NOT REPORTED Normal [facility] Comment on above: Performed By: #### V BG #### [facility] [address] [place], [place] [phone] Injection Molding Process Technician: Brandan Ugalde MD VT NOT REPORTED Normal [facility] Comment on above: Performed By: #### V BG #### [facility] [address] [place], [place] [phone] Injection Molding Process Technician: Brandan Ugalde MD Basic Metabolic Panelon 09-05 Anion gap [Moles/Vol] 11 mmol/L 9 - 17 mmol/L [employer] Calcium [Mass/Vol] 7.8 mg/dL Low 8.6 - 10.4 mg/dL [employer] Chloride [Moles/Vol] 106 mmol/L 98 - 107 mmol/L [employer] CO2 [Moles/Vol] 12 mmol/L Low 20 - 31 mmol/L [employer] Creatinine [Mass/Vol] 2.3 mg/dL High 0.50 - 0.90 mg /dL [employer] GFR 28 mL/min Low >60 [facility] GFR Non- 23 mL/min Low >60 [employer] GFR/1.73 sq M.predicted MDRD (S/P/Bld) [Vol rate/Area] [facility] Comment on above: Average GFR for 40-4 9 years old: 99 mL/min/1.73sq m Chronic Kidney Disease: <60 mL/min/1.73sq m Kidney failure: <15 mL/min/1.73sq m eGFR calculated using average adult body mass. Additional eGFR calculator available at: http://www.[employer].com/multiple_crcl_2012.htm GFR/1.73 sq M.predicted MDRD (S/P/Bld) [Vol rate/Area] NOT REPORTED [facility] Glucose [Mass/Vol] 301 mg/dL High 70 - 99 mg/dL [facility] Interpretation and review of laboratory results Abnormal [employer] Potassium [Moles/Vol] 4.1 mmol/L 3.7 - 5.3 mmol /L [facility] Comment on above: SPECIMEN SLIGHTLY HE MOLYZED, RESULTS MAY BE ADVERSELY AFFECTED. Sodium [Moles/Vol] 129 mmol/L Low 135 - 144 mmol/L [employer] Urea nitrogen (BldV) [Mass/Vol] 32 mg/dL High 6 - 20 mg/dL [employer] Urea nitrogen/Creatinine (Bld) [Mass ratio] NOT REPORTED [facility] Anion gap [Moles/Vol] 11 mmol/L 9 - 17 mmol/L [employer] Calcium [Mass/Vol] 8.0 mg/dL Low 8.6 - 10.4 mg/dL [employer] Chloride [Moles/Vol] 110 mmol/L High 98 - 107 mmol/L [employer] CO2 [Moles/Vol] 12 mmol/L Low 20 - 31 mmol/L [employer] Creatinine [Mass/Vol] 2.29 mg/dL High 0.50 - 0.90 mg /dL [employer] GFR 28 mL/min Low >60 [facility] GFR Non- 23 mL/min Low >60 [employer] GFR/1.73 sq M.predicted MDRD (S/P/Bld) [Vol rate/Area] [facility] Comment on above: Average GFR for 40-4 9 years old: 99 mL/min/1.73sq m Chronic Kidney Disease: <60 mL/min/1.73sq m Kidney failure: <15 mL/min/1.73sq m eGFR calculated using average adult body mass. Additional eGFR calculator available at: http://www.[employer]multiple_crcl_2012.htm GFR/1.73 sq M.predicted MDRD (S/P/Bld) [Vol rate/Area] NOT REPORTED [facility] Glucose [Mass/Vol] 217 mg/dL High 70 - 99 mg/dL [facility] [employer] Interpretation and review of laboratory results Abnormal [employer] Potassium [Moles/Vol] 3.4 mmol/L Low 3.7 - 5.3 mmol /L [employer] Sodium [Moles/Vol] 133 mmol/L Low 135 - 144 mmol/L [employer] Urea nitrogen (BldV) [Mass/Vol] 32 mg/dL High 6 - 20 mg/dL [facility] Urea nitrogen/Creatinine (Bld) [Mass ratio] NOT REPORTED [facility] [employer] Anion gap [Moles/Vol] 7 mmol/L Low 9 - 17 mmol/L [facility] [employer] Calcium [Mass/Vol] 8.0 mg/dL Low 8.6 - 10.4 mg/dL [facility] [employer] Chloride [Moles/Vol] 113 mmol/L High 98 - 107 mmol/L [facility] CO2 [Moles/Vol] 13 mmol/L Low 20 - 31 mmol/L [facility] [employer] Creatinine [Mass/Vol] 2.39 mg/dL High 0.50 - 0.90 mg /dL [facility] [employer] GFR 27 mL/min Low >60 [employer] GFR Non- 22 mL/min Low >60 [facility] [employer] GFR/1.73 sq M.predicted MDRD (S/P/Bld) [Vol rate/Area] Comment on above: Average GFR for 40-4 9 years old: 99 mL/min/1.73sq m Chronic Kidney Disease: <60 mL/min/1.73sq m Kidney failure: <15 mL/min/1.73sq m eGFR calculated using average adult body mass. Additional eGFR calculator available at: http://www.Beijingyicheng/multiple_crcl_2012.htm GFR/1.73 sq M.predicted MDRD (S/P/Bld) [Vol rate/Area] NOT REPORTED Glucose [Mass/Vol] 127 mg/dL High 70 - 99 mg/dL [facility] [employer] Potassium [Moles/Vol] 3.7 mmol/L 3.7 - 5.3 mmol /L [facility] [employer] Comment on above: SPECIMEN SLIGHTLY HE MOLYZED, RESULTS MAY BE ADVERSELY AFFECTED. Sodium [Moles/Vol] 133 mmol/L Low 135 - 144 mmol/L Urea nitrogen (BldV) [Mass/Vol] 32 mg/dL High 6 - 20 mg/dL [facility] [employer] Urea nitrogen/Creatinine (Bld) [Mass ratio] NOT REPORTED [facility] [employer] Basic Metabolic Profon 09-29 (cont.) Normal [facility] Comment on above: Result Comment: Aver age GFR for 40-49 years old: 99 mL/min/1.73sq m Chronic Kidney Disease: <60 mL/min/1.73sq m Kidney failure: <15 mL/min/1.73sq m eGFR calculated using average adult body mass. Additional eGFR calculator available at: http://www.[employer]multiple_crcl_2012.htm Performed By: #### C ISABELLA IPF, BMP #### [facility] [address] [place] [address] Injection Molding Process Technician: Brandan Ugalde MD Anion gap [Moles/Vol] 11 mmol/L Normal 9-17 [facility] Comment on above: Performed By: #### C DP IPF, BMP #### [facility] [address] [place] [address] Injection Molding Process Technician: Brandan Ugalde MD Calcium [Mass/Vol] 7.8 mg/dL Low 8.6-10.[address] [facility] Comment on above: Performed By: #### C ISABELLA IPF, BMP #### [facility] [employer] [address] [place] [address] Injection Molding Process Technician: Brandan Ugalde MD Chloride [Moles/Vol] 106 mmol/L Normal 98-107 [facility] Comment on above: Performed By: #### C ISABELLA IPF, BMP #### [facility] [address] [place] [address] Injection Molding Process Technician: Brandan Ugalde MD CO2 [Moles/Vol] 12 mmol/L Low 20-[address] [facility] Comment on above: Performed By: #### C DP, IPF, BMP #### [facility] [address] [place] [address] Injection Molding Process Technician: Brandna Ugalde MD Creatinine [Mass/Vol] 2.30 mg/dL High 0.50-0.90 [facility] Comment on above: Performed By: #### C DP IPF, BMP #### [facility] [address] [place] [address] Injection Molding Process Technician: Brandan Ugalde MD GFR, Amer 28 mL/min Low >60 [facility] Comment on above: Performed By: #### C DP IPF, BMP #### [address] [address] Injection Molding Process Technician: Brandan Ugalde MD GFR,non Amer 23 mL/min Low >60 [facility] Comment on above: Performed By: #### C DP IPF, BMP #### [address] [address] Injection Molding Process Technician: Brandan Ugalde MD Glucose [Mass/Vol] 301 mg/dL High 70-[address] [facility] Comment on above: Performed By: #### C ISABELLA IPF, BMP #### [address] [address] Injection Molding Process Technician: Brandan Ugalde MD Potassium [Moles/Vol] 4.1 mmol/L Normal 3.7-5.3 [facility] Comment on above: Result Comment: SPEC IMEN SLIGHTLY HEMOLYZED, RESULTS MAY BE ADVERSELY AFFECTED. Performed By: #### C ISABELLA IPF, BMP #### [address] [address] Injection Molding Process Technician: Brandan Ugalde MD Sodium [Moles/Vol] 129 mmol/L Low 135-[address] [facility] Comment on above: Performed By: #### C DP IPF, BMP #### [address] [address] Injection Molding Process Technician: Brandan Ugalde MD Urea nitrogen [Mass/Vol] 32 mg/dL High 6-[address] [facility] Comment on above: Performed By: #### C DP IPF, BMP #### [facility] [employer] [address] [place] [address] Injection Molding Process Technician: Brandan Ugalde MD BUN/CRE Ratio NOT REPORTED Normal 9-[address] [facility] Comment on above: Performed By: #### C DP, IPF, BMP #### [facility] [address] [place] [address] Injection Molding Process Technician: Brandan Ugalde MD Staging: NOT REPORTED Normal [facility] Comment on above: Performed By: #### C DP IPF, BMP #### [facility] [employer] [address] [place] [address] Injection Molding Process Technician: Brandan Ugalde MD (cont.) Normal [facility] Comment on above: Result Comment: Aver age GFR for 40-49 years old: 99 mL/min/1.73sq m Chronic Kidney Disease: <60 mL/min/1.73sq m Kidney failure: <15 mL/min/1.73sq m eGFR calculated using average adult body mass. Additional eGFR calculator available at: http://www.Beijingyicheng/multiple_crcl_2012.htm Performed By: #### C ISABELLA IPF, BMP #### [facility] [employer] [address] [place] [address] Injection Molding Process Technician: Brandan Ugalde MD Anion gap [Moles/Vol] 11 mmol/L Normal 9-17 [facility] Comment on above: Performed By: #### C ISABELLA IPF, BMP #### [facility] [employer] [address] [place] [address] Injection Molding Process Technician: Brandan Ugalde MD Calcium [Mass/Vol] 8.0 mg/dL Low 8.6-10.[address] [facility] Comment on above: Performed By: #### C DP IPF, BMP #### [facility] [address] [place] [address] Injection Molding Process Technician: Brandan Ugalde MD Chloride [Moles/Vol] 110 mmol/L High 98-107 [facility] Comment on above: Performed By: #### C DP IPF, BMP #### [facility] [employer] [address] [place] [address] Injection Molding Process Technician: Brandan Ugalde MD CO2 [Moles/Vol] 12 mmol/L Low 20-[address] [facility] Comment on above: Performed By: #### C DP, IPF, BMP #### [facility] [address] [place] [address] Injection Molding Process Technician: Brandan Ugalde MD Creatinine [Mass/Vol] 2.29 mg/dL High 0.50-0.90 [facility] Comment on above: Performed By: #### C DP, IPF, BMP #### [facility] [address] [place] [address] Injection Molding Process Technician: Brandan Ugalde MD GFR, Amer 28 mL/min Low >60 [facility] Comment on above: Performed By: #### C DP, IPF, BMP #### [facility] [address] [place] [address] Injection Molding Process Technician: Brandan Ugalde MD GFR,non Amer 23 mL/min Low >60 [facility] Comment on above: Performed By: #### C DP, IPF, BMP #### [facility] [address] [place] [address] Injection Molding Process Technician: Brandan Ugalde MD Glucose [Mass/Vol] 217 mg/dL High 70-[address] [facility] Comment on above: Performed By: #### C DP, IPF, BMP #### [facility] [address] [place] [address] Injection Molding Process Technician: Brandan Ugalde MD Potassium [Moles/Vol] 3.4 mmol/L Low 3.7-5.3 [facility] Comment on above: Performed By: #### C DP, IPF, BMP #### [facility] [address] [place] [address] Injection Molding Process Technician: Brandan Ugalde MD Sodium [Moles/Vol] 133 mmol/L Low 135-[address] [facility] [facility] Comment on above: Performed By: #### C DP, IPF, BMP #### [facility] [address] [place] [address] Injection Molding Process Technician: Brandan Ugalde MD Urea nitrogen [Mass/Vol] 32 mg/dL High 6-[address] [facility] Comment on above: Performed By: #### C DP, IPF, BMP #### [facility] [address] [place] [address] Injection Molding Process Technician: Brandan Ugalde MD BUN/CRE Ratio NOT REPORTED Normal -[address] [facility] Comment on above: Performed By: #### C DP IPF, BMP #### [address] [address] Injection Molding Process Technician: Brandan Ugalde MD Staging: NOT REPORTED Normal [facility] Comment on above: Performed By: #### C ISABELLA IPF, BMP #### [address] [address] Injection Molding Process Technician: Brandan Ugalde MD (cont.) [facility] Comment on above: Result Comment: Aver age GFR for 40-49 years old: 99 mL/min/1.73sq m Chronic Kidney Disease: <60 mL/min/1.73sq m Kidney failure: <15 mL/min/1.73sq m eGFR calculated using average adult body mass. Additional eGFR calculator available at: http://www.[employer]multiple_crcl_2012.htm Performed By: #### C DP IPF, BMP #### [address] [address] Injection Molding Process Technician: Brandan Ugalde MD Anion gap [Moles/Vol] 7 mmol/L Low 9-17 [facility] Comment on above: Performed By: #### C DP, IPF, BMP #### [facility] [address] [place] [address] Injection Molding Process Technician: Brandan Ugalde MD Calcium [Mass/Vol] 8.0 mg/dL Low 8.6-10.[address] [facility] Comment on above: Performed By: #### C DP, IPF, BMP #### [facility] [address] [place] [address] Injection Molding Process Technician: Brandan Ugalde MD Chloride [Moles/Vol] 113 mmol/L High 98-107 [facility] Comment on above: Performed By: #### C DP, IPF, BMP #### [facility] [address] [place] [address] Injection Molding Process Technician: Brandan Ugalde MD CO2 [Moles/Vol] 13 mmol/L Low 20-[address] [facility] Comment on above: Performed By: #### C DP, IPF, BMP #### [facility] [address] [place] [address] Injection Molding Process Technician: Brandan Ugalde MD Creatinine [Mass/Vol] 2.39 mg/dL High 0.50-0.90 [facility] Comment on above: Performed By: #### C DP, IPF, BMP #### [facility] [address] [place] [address] Injection Molding Process Technician: Brandan Ugalde MD GFR, Amer 27 mL/min Low >60 [facility] Comment on above: Performed By: #### C DP, IPF, BMP #### [facility] [address] [place] [address] Injection Molding Process Technician: Brandan Ugalde MD GFR,non Amer 22 mL/min Low >60 [facility] Comment on above: Performed By: #### C DP, IPF, BMP #### [facility] [address] [place] [address] Injection Molding Process Technician: Brandan Ugalde MD Glucose [Mass/Vol] 127 mg/dL High 70-[address] [facility] Comment on above: Performed By: #### C DP, IPF, BMP #### [facility] [address] [place] [address] Injection Molding Process Technician: Brandan Ugalde MD Potassium [Moles/Vol] 3.7 mmol/L Normal 3.7-5.3 [facility] Comment on above: Result Comment: SPEC IMEN SLIGHTLY HEMOLYZED, RESULTS MAY BE ADVERSELY AFFECTED. Performed By: #### C DP IPF, BMP #### [address] [address] Injection Molding Process Technician: Brandan Ugalde MD Sodium [Moles/Vol] 133 mmol/L Low 135-[address] [facility] Comment on above: Performed By: #### C DP IPF, BMP #### [facility] [address] [place] [address] Injection Molding Process Technician: Brandan Ugalde MD Urea nitrogen [Mass/Vol] 32 mg/dL High 6-[address] [facility] Comment on above: Performed By: #### C DP IPF, BMP #### [facility] [address] [place] [address] Injection Molding Process Technician: Brandan Ugalde MD BUN/CRE Ratio NOT REPORTED Normal 9-[address] [facility] Comment on above: Performed By: #### C DP IPF, BMP #### [facility] [address] [place] [address] Injection Molding Process Technician: Brandan Ugalde MD Staging: NOT REPORTED Normal [facility] Comment on above: Performed By: #### C DP, IPF, BMP #### [facility] [address] [place] [address] Injection Molding Process Technician: Brandan Ugalde MD (cont.) Normal [facility] Comment on above: Result Comment: Aver age GFR for 40-49 years old: 99 mL/min/1.73sq m Chronic Kidney Disease: <60 mL/min/1.73sq m Kidney failure: <15 mL/min/1.73sq m eGFR calculated using average adult body mass. Additional eGFR calculator available at: http://www.[employer]multiple_crcl_2011.htm Performed By: #### C DP, IPF, BMP #### [facility] [address] [place] [address] Injection Molding Process Technician: Brandan Ugalde MD Anion gap [Moles/Vol] 6 mmol/L Low 9-17 [facility] Comment on above: Performed By: #### C DP, IPF, BMP #### [facility] [address] [place] [address] Injection Molding Process Technician: Brandan Ugalde MD Calcium [Mass/Vol] 8.5 mg/dL Low 8.6-10.[address] [facility] Comment on above: Performed By: #### C DP, IPF, BMP #### [facility] [address] [place] [address] Injection Molding Process Technician: Brandan Ugalde MD Chloride [Moles/Vol] 110 mmol/L High 98-107 [facility] Comment on above: Performed By: #### C DP, IPF, BMP #### [facility] [address] [place] [address] Injection Molding Process Technician: Brandan Ugalde MD CO2 [Moles/Vol] 15 mmol/L Low 20-[address] [facility] Comment on above: Performed By: #### C DP, IPF, BMP #### [facility] [address] [place] [address] Injection Molding Process Technician: Brandan Ugalde MD Creatinine [Mass/Vol] 2.24 mg/dL High 0.50-0.90 [facility] Comment on above: Performed By: #### C DP, IPF, BMP #### [facility] [address] [place] [address] Injection Molding Process Technician: Brandan Ugalde MD GFR, Amer 29 mL/min Low >60 [facility] Comment on above: Performed By: #### C DP, IPF, BMP #### [facility] [address] [place] [address] [place] [address] Injection Molding Process Technician: Brandan Ugalde MD GFR,non Amer 24 mL/min Low >60 [facility] Comment on above: Performed By: #### C EMILIO MASON, BMP #### [facility] [address] [place] [address] Injection Molding Process Technician: Brandan Ugalde MD Glucose [Mass/Vol] 156 mg/dL High 70-[address] [facility] Comment on above: Performed By: #### C EMILIO MASON, BMP #### [facility] [address] [place] [address] Injection Molding Process Technician: Brandan Ugalde MD Potassium [Moles/Vol] 3.4 mmol/L Low 3.7-5.3 [facility] Comment on above: Performed By: #### C EMILIO MASON, BMP #### [facility] [address] [place] [address] Injection Molding Process Technician: Brandan Ugalde MD Sodium [Moles/Vol] 131 mmol/L Low 135-[address] [facility] Comment on above: Performed By: #### C EMILIO MASON, BMP #### [facility] [address] [place] [address] Injection Molding Process Technician: Brandan Ugalde MD Urea nitrogen [Mass/Vol] 32 mg/dL High 6-[address] [facility] Comment on above: Performed By: #### C EMILIO MASON, BMP #### [facility] [address] [place] [address] Injection Molding Process Technician: Brandan Ugalde MD Blood Gas, Venouson 09-29-19 22 Josh Test NOT REPORTED [employer] Carboxyhemoglobin 1.2 % 0 - 5 % [facility] Comment on above: Reference Range: Non-Smokers 0-2% Average Smoker 2-4% Heavy Smoker <10% FIO2 INFORMATION NOT PROVIDED [facility] HCO3 (Bld) [Moles/Vol] 15.2 mmol/L Low 24 - 30 mmol/L Interpretation and review of laboratory results Abnormal Methemoglobin NOT REPORTED 0.0 - 1.5 % [facility] alth Mode NOT REPORTED Negative Base Excess, Earnest 10.6 mmol/L High 0.0 - 2.0 mmol/L NOTIFICATION NOT REPORTED [facility] th NOTIFICATION TIME NOT REPORTED O2 Device/Flow/% NOT REPORTED Oxygen saturation in Blood 80.9 % 60.0 - 85.0 % Oxyhemoglobin NOT REPORTED 95.0 - 98.0 % pCO2, Earnest 34.9 Low pCO2, Earnest, Temp Adj NOT REPORTED [facility] Peep/Cpap NOT REPORTED pH, Earnest 7.261 Low pH, Earnest, Temp Adj NOT REPORTED pO2, Earnest 39.5 pO2, Earnest, Temp Adj NOT REPORTED [facility] Positive Base Excess, Earnest NOT REPORTED 0.0 - 2.0 mmol/L PSV NOT REPORTED Pt Temp 37.0 Pt. Position NOT REPORTED [facility] th Respiratory Rate NOT REPORTED Sample Site NOT REPORTED [facility] h Set Rate NOT REPORTED Text for Respiratory NOT REPORTED [facility] Total Hb NOT REPORTED 12.0 - 16.0 g/dl Total Rate NOT REPORTED VT NOT REPORTED [facility] CBC auto differentialon 09-05 Absolute Eos # <0.03 [facility] th Absolute Immature Granulocyte 0.07 Absolute Lymph # 1.85 [facility] alth Absolute [facility] # 0.79 [facility] lt Basophils (Bld) [#/Vol] 10*3/uL Basophils/100 WBC (Bld) 0 % 0 - 2 % Differential Type NOT REPORTED Eosinophils/100 WBC (Bld) 0 % Low 1 - 4 % Hematocrit (Bld) [Volume fraction] 34.1 % Low 36.3 - 47.1 % Hemoglobin.gastrointe stinal spec 1 Ql (Stl) 10.8 g/dL Low 11.9 - 15.1 g/dL [facility] Immature granulocytes/100 WBC (Bld) 1 % High 0 Interpretation and review of laboratory results Abnormal Lymphocytes/100 WBC (Bld) 21 % Low 24 - 43 % MCH (RBC) [Entitic mass] 28.1 pg 25.2 - 33.5 pg MCHC (RBC) [Mass/Vol] 31.7 g/dL 28.4 - 34.8 g/ dL MCV (RBC) [Entitic vol] 88.6 fL 82.6 - 102.9 fL [facility] [employer] Monocytes/100 WBC (Bld) 9 % 3 - 12 % [facility] [employer] NRBC Automated 0.0 0.0 per 100 WBC Platelet distribution width (Bld) [Ratio] 14.0 % 11.8 - 14.4 % Platelet Estimate NOT REPORTED Platelet mean volume (Bld) [Entitic vol] 9.0 fL 8.1 - 13.5 fL Platelets (Bld) [#/Vol] 107 10*3/uL Low RBC (Bld) [#/Vol] 3.85 10*6/uL Low 3.95 - 5.11 m/uL RBC (Bld) [#/Vol] NOT REPORTED Segmented neutrophils/100 WBC (Bld) 69 % High 36 - 65 % [facility] [#/Vol] 8.8 10*3/uL WBC (Bld) [#/Vol] NOT REPORTED [facility] CBC with Diffon 09-29-2021 Abs. Basophil <0.03 Normal 0.00-0.[address] [facility] Comment on above: Performed By: #### C DP, IPF, BMP #### [employer] [address] [place] [address] Injection Molding Process Technician: Brandan Ugalde MD Abs. Eosinophil <0.03 Normal 0.00-0.[address] [facility] Comment on above: Performed By: #### C DP, IPF, BMP #### [employer] [address] [place], [place] [id number] Injection Molding Process Technician: Brandan Ugalde MD Abs.Imm.Granulocyte 0.07 k/uL Normal 0.00-0.[address] [facility] Comment on above: Performed By: #### C DP, IPF, BMP #### [address] [address] Injection Molding Process Technician: Brandan Ugalde MD Abs.Neutrophil (Seg) 6.03 k/uL Normal 1.50-8.10 [facility] Comment on above: Performed By: #### C DP, IPF, BMP #### [address] [address] Injection Molding Process Technician: Brandan Ugalde MD Basophils/100 WBC (Bld) 0 % Normal 0-[address] [facility] Comment on above: Performed By: #### C DP, IPF, BMP #### [facility] [employer] [address] [place] [address] Injection Molding Process Technician: Brandan Ugalde MD Eosinophils/100 WBC (Bld) 0 % Low 1-[address] [facility] Comment on above: Performed By: #### C DP, IPF, BMP #### [address] [address] Injection Molding Process Technician: Brandan Ugalde MD Erythrocyte distribution width (RBC) [Ratio] 14.0 % Normal 11.8-14.[address] [facility] Comment on above: Performed By: #### C DP IPF, BMP #### [facility] [address] [place] [address] Injection Molding Process Technician: Brandan Ugalde MD Hematocrit (Bld) [Volume fraction] 34.1 % Low 36.3-47.[address] [facility] Comment on above: Performed By: #### C DP, IPF, BMP #### [facility] [address] [place] [address] Injection Molding Process Technician: Brandan Ugalde MD Hemoglobin (Bld) [Mass/Vol] 10.8 g/dL Low 11.9-15.[address] [facility] Comment on above: Performed By: #### C DP, IPF, BMP #### [address] [address] Injection Molding Process Technician: Brandan Ugalde MD Immature granulocytes/100 WBC (Bld) 1 % High [address] [facility] Comment on above: Performed By: #### C DP, IPF, BMP #### [address] [address] Injection Molding Process Technician: Brandan Ugalde MD Lymphocytes (Bld) [#/Vol] 1.85 10*3/uL Normal 1.10-3.[address] [facility] Comment on above: Performed By: #### C DP IPF, BMP #### [address] [address] Injection Molding Process Technician: Brandan Ugalde MD Lymphocytes/100 WBC (Bld) 21 % Low 24-[address] [facility] Comment on above: Performed By: #### C DP IPF, BMP #### [address] [address] Injection Molding Process Technician: Brandan Ugalde MD MCH (RBC) [Entitic mass] 28.1 pg Normal 25.2-33.[address] [facility] Comment on above: Performed By: #### C DP, IPF, BMP #### [address] [address] Injection Molding Process Technician: Brandan Ugalde MD MCHC (RBC) [Mass/Vol] 31.7 g/dL Normal 28.4-34.8 [facility] Comment on above: Performed By: #### C DP, IPF, BMP #### [address] [address] Injection Molding Process Technician: Brandan Ugalde MD MCV (RBC) [Entitic vol] 88.6 fL Normal 82.6-102.[address] [facility] Comment on above: Performed By: #### C DP, IPF, BMP #### [address] [address] Injection Molding Process Technician: Brandan Ugalde MD Monocytes (Bld) [#/Vol] 0.79 10*3/uL Normal 0.10-1.[address] [facility] Comment on above: Performed By: #### C DP, IPF, BMP #### [address] [address] Injection Molding Process Technician: Brandan Ugalde MD Monocytes/100 WBC (Bld) 9 % Normal 3-[address] [facility] Comment on above: Performed By: #### C DP, IPF, BMP #### [address] [address] Injection Molding Process Technician: Brandan Ugalde MD Neutrophil (Seg) 69 % High 36-65 [facility] Comment on above: Performed By: #### C DP, IPF, BMP #### [address] [address] Injection Molding Process Technician: Brandan Ugalde MD NRBC Automated 0.0 per 100 WBC Normal 0.[address] [facility] Comment on above: Performed By: #### C DP, IPF, BMP #### [address] [address] Injection Molding Process Technician: Brandan Ugalde MD Platelet mean volume (Bld) [Entitic vol] 9.0 fL Normal 8.1-13.[address] [facility] Comment on above: Performed By: #### C DP, IPF, BMP #### [address] [address] Injection Molding Process Technician: Brandan Ugalde MD Platelets (Bld) [#/Vol] 107 10*3/uL Low 138-[address] [facility] Comment on above: Performed By: #### C DP, IPF, BMP #### [address] [address] Injection Molding Process Technician: Brandan Ugalde MD RBC (Bld) [#/Vol] 3.85 10*6/uL Low 3.95-5.[address] [facility] Comment on above: Performed By: #### C DP, IPF, BMP #### [facility] [address] [place] [address] Injection Molding Process Technician: Brandan Ugalde MD WBC (Bld) [#/Vol] 8.8 10*3/uL Normal 3.5-11.[address] [facility] Comment on above: Performed By: #### C DP, IPF, BMP #### [facility] [address] [place] [address] Injection Molding Process Technician: Brandan Ugalde MD Auto Diff Performed NOT REPORTED Normal [facility] Comment on above: Performed By: #### C DP, IPF, BMP #### [facility] [address] [place] [address] Injection Molding Process Technician: Brandan Ugalde MD Platelet Comment NOT REPORTED Normal [facility] Comment on above: Performed By: #### C DP, IPF, BMP #### [facility] [address] [place] [address] Injection Molding Process Technician: Brandan Ugalde MD RBC morphology finding Nom (Bld) NOT REPORTED Normal [facility] Comment on above: Performed By: #### C DP, IPF, BMP #### [facility] [address] [place] [address] Injection Molding Process Technician: Brandan Ugalde MD WBC Morphology NOT REPORTED Normal [facility] Comment on above: Performed By: #### C DP, IPF, BMP #### [facility] [address] [place] [address] Injection Molding Process Technician: Brandan Ugalde MD MRSA DNA Probe, Nasalon - MRSA, DNA, Nasal Negative NEGATIVE [facility] Comment on above: NEGATIVE: MRSA DNA n ot detected by nucleic acid amplification. Results should be used as an adjunct to nosocomial control efforts to identify patients needing enhanced precautions. The test is not intended to identify patients with staphylococcal infections. Results should not be used to guide or monitor treatment for MRSA infections. Specimen Description .NASAL SWAB [facility] MRSA, DNA, Nasalon 2 MRSA, DNA, Nasal Negative Normal NEG [facility] Comment on above: Result Comment: [...] By: #### C EMILIO MASON, BMP #### [employer] [address] [place] [address] Injection Molding Process Technician: Brandan Ugalde MD Magnesiumon 09-29-2021 Magnesium [Mass/Vol] 1.7 mg/dL Normal 1.6-2.6 [facility] Comment on above: Performed By: #### C EMILIO MASON, BMP #### [employer] [address] [place] [address] Injection Molding Process Technician: Brandan Ugalde MD Magnesium [Mass/Vol] 1.7 mg/dL 1.6 - 2.6 mg/dL Magnesium [Mass/Vol] 1.8 mg/dL Normal 1.6-2.6 [facility] Comment on above: Performed By: #### C EMILIO MASON, BMP #### [employer] [address] [place] [address] Injection Molding Process Technician: Brandan Ugalde MD Magnesium [Mass/Vol] 1.8 mg/dL 1.6 - 2.6 mg/dL Magnesium [Mass/Vol] 1.9 mg/dL Normal 1.6-2.6 [facility] Comment on above: Performed By: #### C EMILIO MASON, BMP #### [employer] [address] [place] [address] Injection Molding Process Technician: Brandan Ugalde MD Magnesium [Mass/Vol] 1.9 mg/dL 1.6 - 2.6 mg/dL Magnesium [Mass/Vol] 1.8 mg/dL Normal 1.6-2.6 [facility] Comment on above: Performed By: #### C EMILIO MASON, DACIA #### [employer] [address] [place], [place] [phone] Injection Molding Process Technician: Brandan Uaglde MD No Panel Informationon 09-29 [facility] Interpretation and review of laboratory results Abnormal [facility] POC Glucose Fingerstickon Glucose [Mass/Vol] 159 mg/dL High 65 - 105 mg/dL [facility] [employer] Interpretation and review of laboratory results Abnormal [facility] Glucose [Mass/Vol] 166 mg/dL High 65 - 105 mg/dL [facility] Interpretation and review of laboratory results Abnormal [facility] Glucose [Mass/Vol] 227 mg/dL High 65 - 105 mg/dL [facility] [employer] Interpretation and review of laboratory results Abnormal [facility] Glucose [Mass/Vol] 290 mg/dL High 65 - 105 mg/dL [facility] Interpretation and review of laboratory results Abnormal [facility] Glucose [Mass/Vol] 269 mg/dL High 65 - 105 mg/dL [facility] Interpretation and review of laboratory results Abnormal [facility] Glucose [Mass/Vol] 137 mg/dL High 65 - 105 mg/dL [facility] Interpretation and review of laboratory results Abnormal [facility] Phosphoruson 09-29-2021 Phosphate [Mass/Vol] 3.1 mg/dL 2.6 - 4.5 mg/dL Phosphate [Mass/Vol] 3.0 mg/dL 2.6 - 4.5 mg/dL Phosphate [Mass/Vol] 1.9 mg/dL Low 2.6 - 4.5 mg/dL Phosphorus, Inorg.on 022 Phosphorus, Inorg. 3.1 mg/dL Normal 2.6-4.[address] [facility] Comment on above: Performed By: #### C EMILIO MASON, BMP #### [employer] [address] [place], [place] [id number] Injection Molding Process Technician: Brandan Ugalde MD Phosphorus, Inorg. 3.0 mg/dL Normal 2.6-4.[address] [facility] Comment on above: Performed By: #### C DP, IPF, BMP #### [facility] [address] [place] [address] Injection Molding Process Technician: Brandan Ugalde MD Phosphorus, Inorg. 1.9 mg/dL Low 2.6-4.[address] [facility] Comment on above: Performed By: #### C DP, IPF, BMP #### [facility] [address] [place] [address] Injection Molding Process Technician: Brandan Ugalde MD Phosphorus, Inorg. 1.9 mg/dL Low 2.6-4.[address] [facility] Comment on above: Performed By: #### C DP, IPF, BMP #### [employer] [address] [place] [address] In[employer] Molding Process Technician: Brandan Ugalde MD SPECIMEN REJECTIONon 022 - NOT REPORTED Ordered Test [facility] Reason for Rejection Unable to perform testing: Specimen clotted. Specimen source Nom (Unsp spec) .BLOOD [facility] Specimen Rejectionon 022 Reason for rejection Unable to perform testing: Specimen clotted. Normal [facility] Comment on above: Performed By: #### C DP, IPF, BMP #### [employer] [address] [place] [address] Injection Molding Process Technician: Brandan Ugalde MD Source of sample .BLOOD Normal [facility] Comment on above: Performed By: #### C DP, IPF, BMP #### [employer] [address] [place] [address] Injection Molding Process Technician: Brandan Ugalde MD [facility] Comment on above: Performed By: #### C DP, IPF, BMP #### [address] [address] In[employer] Molding Process Technician: Brandan Ugalde MD ----- NOT REPORTED Normal [facility] Comment on above: Performed By: #### C DP, IPF, BMP #### [address] [address] In[employer] Molding Process Technician: Brandan Ugalde MD Venous Blood Gaseson 022 Body Temp. 37.[address] [facility] Comment on above: Performed By: #### C DP, IPF, BMP #### [address] [address] [employer] Technician: Brandan Ugalde MD Carboxy Hgb 1.2 % Normal 0-[address] [facility] Comment on above: Result Comment: Reference Range: Non-Smokers 0-2% Average Smoker 2-4% Heavy Smoker <10% Performed By: #### C DP, IPF, BMP #### [address] [address] In[employer] M[employer] Process Technician: Brandan Ugalde MD FIO2 INFORMATION NOT PROVIDED [facility] Comment on above: Performed By: #### C DP, IPF, BMP #### [address] [address] Injection Molding Process Technician: Brandan Ugalde MD HCO3 (Bld) [Moles/Vol] 15.2 mmol/L Low 24-[address] [facility] [address] [facility] [facility] Comment on above: Performed By: #### C DP, IPF, BMP #### [address] [address] Injection Molding Process Technician: Brandan Ugaled MD Negative Base Excess 10.6 mmol/L High 0.0-2.0 [facility] Comment on above: Performed By: #### C DP, IPF, BMP #### [address] [address] Injection Molding Process Technician: Brandan Ugalde MD Oxygen (Bld) [Partial pressure] 39.5 mm[Hg] Normal 30-[address] [facility] Comment on above: Performed By: #### C DP, IPF, BMP #### [address] [address] Injection Molding Process Technician: Brandan Ugalde MD Oxygen saturation in Blood 80.9 % Normal 60.0-85.[address] [facility] Comment on above: Performed By: #### C DP, IPF, BMP #### [facility] [address] [place] [address] Injection Molding Process Technician: Brandan Ugalde MD pCO2 34.9 Low 39-[address] [facility] Comment on above: Performed By: #### C DP, IPF, BMP #### [facility] [address] [place] [address] Injection Molding Process Technician: Brandan Ugalde MD pH (Bld) 7.261 [pH] Low 7.320-7.[address] [facility] Comment on above: Performed By: #### C DP, IPF, BMP #### [address] [address] Injection Molding Process Technician: Brandan Ugalde MD Josh Test NOT REPORTED Normal [facility] Comment on above: Performed By: #### C DP, IPF, BMP #### [address] [address] Injection Molding Process Technician: Brandan Ugalde MD Methemoglobin NOT REPORTED Normal 0.0-1.[address] [facility] Comment on above: Performed By: #### C DP, IPF, BMP #### [facility] [address] [place] [address] Injection Molding Process Technician: Brandan Ugalde MD Mode NOT REPORTED Normal [facility] Comment on above: Performed By: #### C DP, IPF, BMP #### [facility] [address] [place] [address] Injection Molding Process Technician: Brandan Ugalde MD Notification Time NOT REPORTED Normal [facility] Comment on above: Performed By: #### C DP, IPF, BMP #### [facility] [address] [place] [address] Injection Molding Process Technician: Brandan Ugalde MD Notification: NOT REPORTED Normal [facility] Comment on above: Performed By: #### C DP, IPF, BMP #### [facility] [address] [place] [address] Injection Molding Process Technician: Brandan Ugalde MD O2 Device/Flow/% NOT REPORTED Normal [facility] Comment on above: Performed By: #### C DP, IPF, BMP #### [facility] [address] [place] [address] Injection Molding Process Technician: Brandan Ugalde MD Oxyhemoglobin NOT REPORTED Normal 95.0-98.[address] [facility] Comment on above: Performed By: #### C DP, IPF, BMP #### [facility] [address] [place] [address] Injection Molding Process Technician: Brandan Ugalde MD Pco2 Adj'd for Temp. NOT REPORTED Normal 39-55 [facility] Comment on above: Performed By: #### C DP, IPF, BMP #### [facility] [address] [place] [address] Injection Molding Process Technician: Brandan Ugalde MD PEEP/CPAP NOT REPORTED Normal [facility] Comment on above: Performed By: #### C DP, IPF, BMP #### [facility] [address] [place] [address] Injection Molding Process Technician: Brandan Ugalde MD pH Adjst'd for Temp. NOT REPORTED Normal 7.320-7.420 [facility] Comment on above: Performed By: #### C DP, IPF, BMP #### [facility] [address] [place] [address] Injection Molding Process Technician: Brandan Ugalde MD pO2 Adj'd for Temp. NOT REPORTED Normal 30-50 [facility] Comment on above: Performed By: #### C DP, IPF, BMP #### [address] [address] Injection Molding Process Technician: Brandan Ugalde MD Positive Base Excess NOT REPORTED Normal 0.0-2.0 [facility] Comment on above: Performed By: #### C DP, IPF, BMP #### [facility] [address] [place] [address] Injection Molding Process Technician: Brandan Ugalde MD PSV NOT REPORTED Normal [facility] Comment on above: Performed By: #### C DP, IPF, BMP #### [facility] [address] [place] [address] Injection Molding Process Technician: Brandan Ugalde MD Pt. Position NOT REPORTED Normal [facility] Comment on above: Performed By: #### C DP, IPF, BMP #### [facility] [address] [place] [address] Injection Molding Process Technician: Brandan Ugalde MD Respiratory Rate NOT REPORTED Normal [facility] Comment on above: Performed By: #### C DP, IPF, BMP #### [facility] [address] [place] [address] Injection Molding Process Technician: Brandan Ugalde MD Set Rate NOT REPORTED Normal [facility] Comment on above: Performed By: #### C DP, IPF, BMP #### [facility] [address] [place] [address] Injection Molding Process Technician: Brandan Ugalde MD Site Drawn NOT REPORTED Normal [facility] Comment on above: Performed By: #### C DP, IPF, BMP #### [facility] [address] [place] [address] Injection Molding Process Technician: Brandan Ugalde MD Text for Respiratory NOT REPORTED Normal [facility] Comment on above: Performed By: #### C DP, IPF, BMP #### [facility] [address] [place] [address] Injection Molding Process Technician: Brandan Ugalde MD Total Hb NOT REPORTED Normal 12.0-16.[address] [facility] Comment on above: Performed By: #### C DP, IPF, BMP #### [facility] [address] [place] [address] Injection Molding Process Technician: Brandan Ugalde MD Total Rate NOT REPORTED Normal [facility] Comment on above: Performed By: #### C DP, IPF, BMP #### [facility] [address] [place] [address] [phone] Injection Molding Process Technician: Brandan Ugalde MD VT NOT REPORTED Normal [facility] Comment on above: Performed By: #### C DP, IPF, BMP #### [facility] [address] [place] [address] Injection Molding Process Technician: Brandan Ugalde MD BASIC METABOLIC PANELon 09-05 Anion gap [Moles/Vol] 13 mmol/L 9 - 17 mmol/L [facility] [employer] Calcium [Mass/Vol] 8.7 mg/dL 8.6 - 10.4 mg/dL [facility] Chloride [Moles/Vol] 115 mmol/L High 98 - 107 mmol/L [facility] CO2 [Moles/Vol] 14 mmol/L Low 20 - 31 mmol/L [facility] Creatinine [Mass/Vol] 2.15 mg/dL High 0.50 - 0.90 mg /dL [facility] GFR 30 mL/min Low >60 [facility] GFR Non- 25 mL/min Low >60 [facility] GFR/1.73 sq M.predicted MDRD (S/P/Bld) [Vol rate/Area] [facility] Comment on above: Average GFR for 40-4 9 years old: 99 mL/min/1.73sq m Chronic Kidney Disease: <60 mL/min/1.73sq m Kidney failure: <15 mL/min/1.73sq m eGFR calculated using average adult body mass. Additional eGFR calculator available at: http://www.[employer]multiple_crcl_2012.htm GFR/1.73 sq M.predicted MDRD (S/P/Bld) [Vol rate/Area] NOT REPORTED [facility] Glucose [Mass/Vol] 160 mg/dL High 70 - 99 mg/dL [facility] Interpretation and review of laboratory results Abnormal [facility] Potassium [Moles/Vol] 2.9 mmol/L Critically low 3.7 - 5.3 mmol/L [facility] Sodium [Moles/Vol] 142 mmol/L 135 - 144 mmol/L [facility] [employer] Urea nitrogen (BldV) [Mass/Vol] 33 mg/dL High 6 - 20 mg/dL [facility] [employer] Urea nitrogen/Creatinine (Bld) [Mass ratio] NOT REPORTED [facility] [employer] BLOOD GAS, VENOUSon 09-28-19 Josh Test NOT REPORTED [facility] Carboxyhemoglobin 2.2 % 0 - 5 % [facility] Comment on above: Reference Range: Non-Smokers 0-2% Average Smoker 2-4% Heavy Smoker <10% FIO2 UNKNOWN [facility] HCO3 (Bld) [Moles/Vol] 17.3 mmol/L Low 24 - 30 mmol/L [facility] [employer] Interpretation and review of laboratory results Abnormal [facility] Methemoglobin NOT REPORTED 0.0 - 1.5 % [facility] Mode NOT REPORTED [facility] Negative Base Excess, Earnest 8.2 mmol/L High 0.0 - 2.0 mmol/L [facility] NOTIFICATION NOT REPORTED [facility] th NOTIFICATION TIME NOT REPORTED [facility] O2 Device/Flow/% NOT REPORTED [facility] Oxygen saturation in Blood 80.7 % 60.0 - 85.0 % [facility] Oxyhemoglobin NOT REPORTED 95.0 - 98.0 % [facility] pCO2, Earnest 37.0 Low [facility] pCO2, Earnest, Temp Adj NOT REPORTED [facility] Peep/Cpap NOT REPORTED [facility] pH, Earnest 7.290 Low [facility] pH, Earnest, Temp Adj NOT REPORTED [facility] pO2, Earnest 34.0 [facility] pO2, Earnest, Temp Adj NOT REPORTED [facility] Positive Base Excess, Earnest NOT REPORTED 0.0 - 2.0 mmol/L [facility] PSV NOT REPORTED [facility] Pt Temp 37.0 Pt. Position NOT REPORTED [facility] th Respiratory Rate NOT REPORTED Sample Site NOT REPORTED [facility] h Set Rate NOT REPORTED Text for Respiratory NOT REPORTED [facility] Total Hb NOT REPORTED 12.0 - 16.0 g/dl [facility] [employer] Total Rate NOT REPORTED [place] NOT REPORTED [facility] [employer] Basic Metabolic Panelon 09-05 Anion gap [Moles/Vol] 6 mmol/L Low 9 - 17 mmol/L [facility] [employer] Calcium [Mass/Vol] 8.5 mg/dL Low 8.6 - 10.4 mg/dL [facility] [employer] Chloride [Moles/Vol] 110 mmol/L High 98 - 107 mmol/L [facility] [employer] CO2 [Moles/Vol] 15 mmol/L Low 20 - 31 mmol/L [facility] [employer] Creatinine [Mass/Vol] 2.24 mg/dL High 0.50 - 0.90 mg /dL [facility] [employer] GFR 29 mL/min Low >60 [facility] [employer] GFR Non- 24 mL/min Low >60 [facility] [employer] GFR/1.73 sq M.predicted MDRD (S/P/Bld) [Vol rate/Area] Comment on above: Average GFR for 40-4 9 years old: 99 mL/min/1.73sq m Chronic Kidney Disease: <60 mL/min/1.73sq m Kidney failure: <15 mL/min/1.73sq m eGFR calculated using average adult body mass. Additional eGFR calculator available at: http://www.[employer]multiple_crcl_2012.htm GFR/1.73 sq M.predicted MDRD (S/P/Bld) [Vol rate/Area] NOT REPORTED Glucose [Mass/Vol] 156 mg/dL High 70 - 99 mg/dL [facility] [employer] Potassium [Moles/Vol] 3.4 mmol/L Low 3.7 - 5.3 mmol /L [facility] [employer] [employer] Sodium [Moles/Vol] 131 mmol/L Low 135 - 144 mmol/L Urea nitrogen (BldV) [Mass/Vol] 32 mg/dL High 6 - 20 mg/dL Urea nitrogen/Creatinine (Bld) [Mass ratio] NOT REPORTED Anion gap [Moles/Vol] 10 mmol/L 9 - 17 mmol/L [facility] Calcium [Mass/Vol] 8.2 mg/dL Low 8.6 - 10.4 mg/dL [facility] [employer] Chloride [Moles/Vol] 113 mmol/L High 98 - 107 mmol/L [facility] CO2 [Moles/Vol] 16 mmol/L Low 20 - 31 mmol/L [facility] [employer] [employer] Creatinine [Mass/Vol] 2.2 mg/dL High 0.50 - 0.90 mg /dL [facility] [employer] [employer] GFR 30 mL/min Low >60 [facility] GFR Non- 24 mL/min Low >60 [facility] GFR/1.73 sq M.predicted MDRD (S/P/Bld) [Vol rate/Area] [facility] Comment on above: Average GFR for 40-4 9 years old: 99 mL/min/1.73sq m Chronic Kidney Disease: <60 mL/min/1.73sq m Kidney failure: <15 mL/min/1.73sq m eGFR calculated using average adult body mass. Additional eGFR calculator available at: http://www.[employer]ijing[employer]heng/multiple_crcl_2012.htm GFR/1.73 sq M.predicted MDRD (S/P/Bld) [Vol rate/Area] NOT REPORTED [facility] [employer] Glucose [Mass/Vol] 231 mg/dL High 70 - 99 mg/dL [facility] [employer] Potassium [Moles/Vol] 4.5 mmol/L 3.7 - 5.3 mmol /L [facility] Comment on above: SPECIMEN SLIGHTLY HE MOLYZED, RESULTS MAY BE ADVERSELY AFFECTED. Sodium [Moles/Vol] 139 mmol/L 135 - 144 mmol/L [facility] [employer] Urea nitrogen (BldV) [Mass/Vol] 33 mg/dL High 6 - 20 mg/dL [facility] [employer] [employer] Urea nitrogen/Creatinine (Bld) [Mass ratio] NOT REPORTED [facility] [employer] Anion gap [Moles/Vol] 17 mmol/L 9 - 17 mmol/L [facility] Calcium [Mass/Vol] 8.7 mg/dL 8.6 - 10.4 mg/dL [facility] [employer] Chloride [Moles/Vol] 116 mmol/L High 98 - 107 mmol/L [facility] CO2 [Moles/Vol] 12 mmol/L Low 20 - 31 mmol/L [facility] Creatinine [Mass/Vol] 2.22 mg/dL High 0.50 - 0.90 mg /dL [facility] [employer] [employer] GFR 29 mL/min Low >60 [facility] [employer] GFR Non- 24 mL/min Low >60 GFR/1.73 sq M.predicted MDRD (S/P/Bld) [Vol rate/Area] Comment on above: Average GFR for 40-4 9 years old: 99 mL/min/1.73sq m Chronic Kidney Disease: <60 mL/min/1.73sq m Kidney failure: <15 mL/min/1.73sq m eGFR calculated using average adult body mass. Additional eGFR calculator available at: http://www.Beijingyicheng/multiple_crcl_2012.htm GFR/1.73 sq M.predicted MDRD (S/P/Bld) [Vol rate/Area] NOT REPORTED Glucose [Mass/Vol] 232 mg/dL High 70 - 99 mg/dL [facility] [employer] Potassium [Moles/Vol] 3.2 mmol/L Low 3.7 - 5.3 mmol /L Sodium [Moles/Vol] 145 mmol/L High 135 - 144 mmol/L Urea nitrogen (BldV) [Mass/Vol] 35 mg/dL High 6 - 20 mg/dL Urea nitrogen/Creatinine (Bld) [Mass ratio] NOT REPORTED Basic Metabolic Profon 09-28 BUN/CRE Ratio NOT REPORTED Normal - [facility] Comment on above: Performed By: #### C ISABELLA, IPF, BMP #### [employer] [address] [place], [place] [phone] Injection Molding Process Technician: Brandan Ugalde MD Staging: NOT REPORTED Normal [facility] Comment on above: Performed By: #### C DP IPF, BMP #### [employer] [address] [place], [place] [id number] Injection Molding Process Technician: Brandan Ugalde MD (cont.) Normal [facility] Comment on above: Result Comment: Aver age GFR for 40-49 years old: 99 mL/min/1.73sq m Chronic Kidney Disease: <60 mL/min/1.73sq m Kidney failure: <15 mL/min/1.73sq m eGFR calculated using average adult body mass. Additional eGFR calculator available at: http://www.[employer]multiple_crcl_2012.htm Performed By: #### C DP IPF, BMP #### [facility] [address] [place] [address] Injection Molding Process Technician: Brandan Ugalde MD Anion gap [Moles/Vol] 10 mmol/L Normal 9-17 [facility] Comment on above: Performed By: #### C DP IPF, BMP #### [facility] [address] [place] [address] Injection Molding Process Technician: Brandan Ugalde MD Calcium [Mass/Vol] 8.2 mg/dL Low 8.6-10.[address] [facility] Comment on above: Performed By: #### C DP IPF, BMP #### [facility] [address] [place] [address] Injection Molding Process Technician: Brandan Ugalde MD Chloride [Moles/Vol] 113 mmol/L High 98-107 [facility] Comment on above: Performed By: #### C DP IPF, BMP #### [facility] [address] [place] [address] Injection Molding Process Technician: Brandan Ugalde MD CO2 [Moles/Vol] 16 mmol/L Low 20-[address] [facility] Comment on above: Performed By: #### C DP, IPF, BMP #### [facility] [address] [place] [address] Injection Molding Process Technician: Brandan Ugalde MD Creatinine [Mass/Vol] 2.20 mg/dL High 0.50-0.90 [facility] Comment on above: Performed By: #### C DP, IPF, BMP #### [facility] [address] [place] [address] Injection Molding Process Technician: Brandan Ugalde MD GFR, Amer 30 mL/min Low >60 [facility] Comment on above: Performed By: #### C EMILIO MASON, BMP #### [address] [address] Injection Molding Process Technician: Brandan Ugalde MD GFR,non Amer 24 mL/min Low >60 [facility] Comment on above: Performed By: #### C ISABELLA IPF, BMP #### [address] [address] Injection Molding Process Technician: Brandan Ugalde MD Glucose [Mass/Vol] 231 mg/dL High 70-[address] [facility] Comment on above: Performed By: #### C ISABELLA IPF, BMP #### [address] [address] Injection Molding Process Technician: Brandan Ugalde MD Potassium [Moles/Vol] 4.5 mmol/L Normal 3.7-5.3 [facility] Comment on above: Result Comment: SPEC IMEN SLIGHTLY HEMOLYZED, RESULTS MAY BE ADVERSELY AFFECTED. Performed By: #### C EMILIO MASON, BMP #### [address] [address] Injection Molding Process Technician: Brandan Ugalde MD Sodium [Moles/Vol] 139 mmol/L Normal 135-[address] [facility] Comment on above: Performed By: #### C ISABELLA IPF, BMP #### [facility] [address] [place] [address] Injection Molding Process Technician: Brandan Ugalde MD Urea nitrogen [Mass/Vol] 33 mg/dL High 6-[address] [facility] Comment on above: Performed By: #### C ISABELLA IPF, BMP #### [facility] [address] [place] [address] Injection Molding Process Technician: Brandan Ugalde MD BUN/CRE Ratio NOT REPORTED Normal 9-[address] [facility] Comment on above: Performed By: #### C DP, IPF, BMP #### [facility] [address] [place] [address] Injection Molding Process Technician: Brandan Ugalde MD Staging: NOT REPORTED Normal [facility] Comment on above: Performed By: #### C DP, IPF, BMP #### [address] [address] Injection Molding Process Technician: Brandan Ugalde MD (cont.) Normal [facility] Comment on above: Result Comment: Aver age GFR for 40-49 years old: 99 mL/min/1.73sq m Chronic Kidney Disease: <60 mL/min/1.73sq m Kidney failure: <15 mL/min/1.73sq m eGFR calculated using average adult body mass. Additional eGFR calculator available at: http://www.Beijingyicheng/multiple_crcl_2012.htm Performed By: #### B MP, MG, MARZENA #### [facility] [address] [place] [address] Injection Molding Process Technician: Brandan Ugalde MD Anion gap [Moles/Vol] 17 mmol/L Normal 9-17 [facility] Comment on above: Performed By: #### B MP, MG, MARZENA #### [facility] [address] [place] [address] Injection Molding Process Technician: Brandan Ugalde MD Calcium [Mass/Vol] 8.7 mg/dL Normal 8.6-10.[address] [facility] Comment on above: Performed By: #### B MP, MG, MARZENA #### [facility] [address] [place] [address] Injection Molding Process Technician: Brandan Ugalde MD Chloride [Moles/Vol] 116 mmol/L High 98-107 [facility] Comment on above: Performed By: #### B MP, MG, MARZENA #### [facility] [address] [place] [address] Injection Molding Process Technician: Brandan Ugalde MD CO2 [Moles/Vol] 12 mmol/L Low 20-[address] [facility] Comment on above: Performed By: #### B MP, MG, MARZENA #### [facility] [address] [place] [address] Injection Molding Process Technician: Brandan Ugalde MD Creatinine [Mass/Vol] 2.22 mg/dL High 0.50-0.90 [facility] Comment on above: Performed By: #### B MP, MG, MARZENA #### [facility] [address] [place] [address] Injection Molding Process Technician: Brandan Ugalde MD GFR, Amer 29 mL/min Low >60 [facility] Comment on above: Performed By: #### B MP, MG, MARZENA #### [facility] [address] [place] [address] Injection Molding Process Technician: Brandan Ugalde MD GFR,non Amer 24 mL/min Low >60 [facility] Comment on above: Performed By: #### B MP, MG, MARZENA #### [facility] [address] [place] [address] Injection Molding Process Technician: Brandan Ugalde MD Glucose [Mass/Vol] 232 mg/dL High 70-[address] [facility] Comment on above: Performed By: #### B MP, MG, MARZENA #### [facility] [address] [place] [address] Injection Molding Process Technician: Brandan Ugalde MD Potassium [Moles/Vol] 3.2 mmol/L Low 3.7-5.3 [facility] Comment on above: Performed By: #### B MP, MG, MARZENA #### [facility] [address] [place] [address] Injection Molding Process Technician: Brandan Ugalde MD Sodium [Moles/Vol] 145 mmol/L High 135-[address] [facility] Comment on above: Performed By: #### B MP, MG, MARZENA #### [facility] [address] [place] [address] Injection Molding Process Technician: Brandan Ugalde MD Urea nitrogen [Mass/Vol] 35 mg/dL High 6-[address] [facility] Comment on above: Performed By: #### B MP, MG, MARZENA #### [facility] [address] [place] [phone] Injection Molding Process Technician: Brandan Ugalde MD BUN/CRE Ratio NOT REPORTED Normal -[address] [facility] Comment on above: Performed By: #### B MP, MG, MARZENA #### [facility] [address] [place] [address] Injection Molding Process Technician: Brandan Ugalde MD Staging: NOT REPORTED Normal [facility] Comment on above: Performed By: #### B MP, MG, MARZENA #### [address] [address] Injection Molding Process Technician: Brandan Ugalde MD (cont.) [facility] Comment on above: Result Comment: Aver age GFR for 40-49 years old: 99 mL/min/1.73sq m Chronic Kidney Disease: <60 mL/min/1.73sq m Kidney failure: <15 mL/min/1.73sq m eGFR calculated using average adult body mass. Additional eGFR calculator available at: http://www.[employer]ire[employer]multiple_crcl_2011.htm Performed By: #### C DP, IPF, BMP #### [facility] [address] [place] [address] Injection Molding Process Technician: Brandan Ugalde MD Anion gap [Moles/Vol] 13 mmol/L Normal 9-17 [facility] Comment on above: Performed By: #### C DP, IPF, BMP #### [facility] [address] [place] [address] Injection Molding Process Technician: Brandan Ugalde MD Calcium [Mass/Vol] 8.7 mg/dL Normal 8.6-10.[address] [facility] Comment on above: Performed By: #### C DP, IPF, BMP #### [facility] [address] [place] [address] Injection Molding Process Technician: Brandan Ugalde MD Chloride [Moles/Vol] 115 mmol/L High 98-107 [facility] Comment on above: Performed By: #### C DP, IPF, BMP #### [facility] [address] [place] [address] Injection Molding Process Technician: Brandan Ugalde MD CO2 [Moles/Vol] 14 mmol/L Low 20-[address] [facility] Comment on above: Performed By: #### C DP, IPF, BMP #### [facility] [address] [place] [address] Injection Molding Process Technician: Brandan Ugalde MD Creatinine [Mass/Vol] 2.15 mg/dL High 0.50-0.90 [facility] Comment on above: Performed By: #### C DP, IPF, BMP #### [address] [address] Injection Molding Process Technician: Brandan Ugalde MD GFR, Amer 30 mL/min Low >60 [facility] Comment on above: Performed By: #### C DP, IPF, BMP #### [facility] [address] [place] [address] Injection Molding Process Technician: Brandan Ugalde MD GFR,non Amer 25 mL/min Low >60 [facility] Comment on above: Performed By: #### C DP, IPF, BMP #### [facility] [address] [place] [address] Injection Molding Process Technician: Brandan Ugalde MD Glucose [Mass/Vol] 160 mg/dL High 70-[address] [facility] Comment on above: Performed By: #### C DP, IPF, BMP #### [facility] [address] [place] [address] Injection Molding Process Technician: Brandan Ugalde MD Potassium [Moles/Vol] 2.9 mmol/L Critically low 3.7-5.[address] [facility] Comment on above: Performed By: #### C DP, IPF, BMP #### [facility] [address] [place] [address] Injection Molding Process Technician: Brandan Ugalde MD Sodium [Moles/Vol] 142 mmol/L Normal 135-[address] [facility] Comment on above: Performed By: #### C DP, IPF, BMP #### [employer] [facility] [address] [place] [address] Injection Molding Process Technician: Brandan Ugalde MD Urea nitrogen [Mass/Vol] 33 mg/dL High 6-[address] [facility] Comment on above: Performed By: #### C DP, IPF, BMP #### [employer] [address] [place] [address] Injection Molding Process Technician: Brandan Ugalde MD BUN/CRE Ratio NOT REPORTED Normal -[address] [facility] Comment on above: Performed By: #### C DP, IPF, BMP #### [employer] [address] [place] [address] Injection Molding Process Technician: Brandan Ugalde MD Staging: NOT REPORTED Normal [facility] Comment on above: Performed By: #### C DP, IPF, BMP #### [employer] [facility] [address] [place] [address] Injection Molding Process Technician: Brandan Ugalde MD CBC WITH AUTO DIFFERENTIALon 09-28-2021 Absolute Eos # <0.03 [facility] Immature Granulocyte 0.18 [employer] Absolute Lymph # 1.06 Low [facility] Absolute [facility] # 1.03 [facility] Basophils (Bld) [#/Vol] 10*3/uL [employer] Basophils/100 WBC (Bld) 0 % 0 - 2 % [employer] [employer] Differential Type NOT REPORTED [facility] [employer] Eosinophils/100 WBC (Bld) 0 % Low 1 - 4 % [employer] Hematocrit (Bld) [Volume fraction] 36.2 % Low 36.3 - 47.1 % [facility] Hemoglobin.gastrointe stinal spec 1 Ql (Stl) 12.8 g/dL 11.9 - 15.1 g/dL [facility] [employer] Immature granulocytes/100 WBC (Bld) 1 % High 0 [facility] [employer] [employer] Interpretation and review of laboratory results Abnormal [facility] [employer] Lymphocytes/100 WBC (Bld) 8 % Low 24 - 43 % [facility] [employer] [employer] MCH (RBC) [Entitic mass] 29.1 pg 25.2 - 33.5 pg [facility] [employer] [employer] MCHC (RBC) [Mass/Vol] 35.4 g/dL High 28.4 - 34.8 g/ dL [facility] [employer] [employer] MCV (RBC) [Entitic vol] 82.3 fL Low 82.6 - 102.9 fL [facility] [employer] Monocytes/100 WBC (Bld) 8 % 3 - 12 % [facility] [employer] [employer] NRBC Automated 0.0 0.0 per 100 WBC [facility] [employer] Platelet distribution width (Bld) [Ratio] 13.2 % 11.8 - 14.4 % [facility] [employer] Platelet Estimate NOT REPORTED [facility] [employer] Platelet mean volume (Bld) [Entitic vol] NOT REPORTED 8.1 - 13.5 fL [facility] [employer] Platelets (Bld) [#/Vol] See Reflexed IPF Result [facility] [employer] RBC (Bld) [#/Vol] 4.40 10*6/uL 3.95 - 5.11 m/uL RBC (Bld) [#/Vol] MICROCYTOSIS PRESENT [facility] [employer] Segmented neutrophils/100 WBC (Bld) 82 % High 36 - 65 % [facility] [employer] Segs [facility].34 [facility] [#/Vol] 12.6 10*3/uL High [facility] [employer] WBC (Bld) [#/Vol] NOT REPORTED [facility] CBC with Diffon 09-28-2021 Abs. Basophil <0.03 Normal 0.00-0.[address] [facility] Comment on above: Performed By: #### C DP, IPF, BMP #### [facility] [place] [address] Injection Molding Process Technician: Brandan Ugalde MD Abs. Eosinophil <0.03 Normal 0.00-0.[address] [facility] Comment on above: Performed By: #### C EMILIO MASON, BMP #### [facility] [employer] [address] [place] [address] Injection Molding Process Technician: Brandan Ugalde MD Abs.Imm.Granulocyte 0.18 k/uL Normal 0.00-0.[address] [facility] Comment on above: Performed By: #### C ISABELLA IPF, BMP #### [facility] [address] [place] [address] Injection Molding Process Technician: Brandan Ugalde MD Abs.Neutrophil (Seg) 10.34 k/uL High 1.50-8.10 [facility] Comment on above: Performed By: #### C ISABELLA IPF, BMP #### [place] [address] Injection Molding Process Technician: Brandan Ugalde MD Basophils/100 WBC (Bld) 0 % Normal 0-[address] [facility] Comment on above: Performed By: #### C ISABELLA IPF, BMP #### [facility] [address] [place] [address] Injection Molding Process Technician: Brandan Ugalde MD Eosinophils/100 WBC (Bld) 0 % Low 1-[address] [facility] Comment on above: Performed By: #### C ISABELLA IPF, BMP #### [facility] [address] [place] [address] Injection Molding Process Technician: Brandan Ugalde MD Erythrocyte distribution width (RBC) [Ratio] 13.2 % Normal 11.8-14.[address] [facility] Comment on above: Performed By: #### C ISABELLA IPF, BMP #### [facility] [employer] [address] [place] [address] Injection Molding Process Technician: Brandan Ugalde MD Hematocrit (Bld) [Volume fraction] 36.2 % Low 36.3-47.[address] [facility] Comment on above: Performed By: #### C DP, IPF, BMP #### [place] [address] Injection Molding Process Technician: Brandan Ugalde MD Hemoglobin (Bld) [Mass/Vol] 12.8 g/dL Normal 11.9-15.[address] [facility] Comment on above: Performed By: #### C DP, IPF, BMP #### [place] [address] Injection Molding Process Technician: Brandan Ugalde MD Immature granulocytes/100 WBC (Bld) 1 % High [address] [facility] Comment on above: Performed By: #### C DP IPF, BMP #### [place] [address] Injection Molding Process Technician: Brandan Ugalde MD Lymphocytes (Bld) [#/Vol] 1.06 10*3/uL Low 1.10-3.[address] [facility] Comment on above: Performed By: #### C DP, IPF, BMP #### [place] [address] Injection Molding Process Technician: Brandan Ugalde MD Lymphocytes/100 WBC (Bld) 8 % Low 24-[address] [facility] Comment on above: Performed By: #### C DP, IPF, BMP #### [place] [address] Injection Molding Process Technician: Brandan Ugalde MD MCH (RBC) [Entitic mass] 29.1 pg Normal 25.2-33.[address] [facility] Comment on above: Performed By: #### C DP, IPF, BMP #### [place] [address] Injection Molding Process Technician: Brandan Ugalde MD MCHC (RBC) [Mass/Vol] 35.4 g/dL High 28.4-34.8 [facility] Comment on above: Performed By: #### C DP, IPF, BMP #### [address] [address] Injection Molding Process Technician: Brandan Ugalde MD MCV (RBC) [Entitic vol] 82.3 fL Low 82.6-102.[address] [facility] Comment on above: Performed By: #### C DP, IPF, BMP #### [address] [address] Injection Molding Process Technician: Brandan Ugalde MD Monocytes (Bld) [#/Vol] 1.03 10*3/uL Normal 0.10-1.[address] [facility] Comment on above: Performed By: #### C DP, IPF, BMP #### [address] [address] Injection Molding Process Technician: Brandan Ugalde MD Monocytes/100 WBC (Bld) 8 % Normal 3-[address] [facility] Comment on above: Performed By: #### C DP, IPF, BMP #### [address] [address] Injection Molding Process Technician: Brandan Ugalde MD Neutrophil (Seg) 82 % High 36-65 [facility] Comment on above: Performed By: #### C DP, IPF, BMP #### [address] [address] Injection Molding Process Technician: Brandan Ugalde MD NRBC Automated 0.0 per 100 WBC Normal 0.[address] [facility] Comment on above: Performed By: #### C DP, IPF, BMP #### [facility] [employer] [address] [place] [address] Injection Molding Process Technician: Brandan Ugalde MD Platelet Count See Reflexed IPF Result Normal 138-[address] [facility] Comment on above: Performed By: #### C DP, IPF, BMP #### [facility] [employer] [address] [place] [address] Injection Molding Process Technician: Brandan Ugalde MD RBC (Bld) [#/Vol] 4.40 10*6/uL Normal 3.95-5.[address] [facility] Comment on above: Performed By: #### C DP, IPF, BMP #### [facility] [address] [place] [address] Injection Molding Process Technician: Brandan Ugalde MD RBC morphology finding Nom (Bld) MICROCYTOSIS PRESENT Normal [facility] Comment on above: Performed By: #### C DP, IPF, BMP #### [facility] [employer] [address] [place] [address] Injection Molding Process Technician: Brandan Ugalde MD WBC (Bld) [#/Vol] 12.6 10*3/uL High 3.5-11.[address] [facility] Comment on above: Performed By: #### C DP, IPF, BMP #### [address] [address] Injection Molding Process Technician: Brandan Ugalde MD Auto Diff Performed NOT REPORTED Normal [facility] Comment on above: Performed By: #### C DP, IPF, BMP #### [address] [address] Injection Molding Process Technician: Brandan Ugalde MD MPV NOT REPORTED Normal 8.1-13.[address] [facility] Comment on above: Performed By: #### C DP, IPF, BMP #### [facility] [employer] [address] [place] [address] Injection Molding Process Technician: Brandan Ugalde MD Platelet Comment NOT REPORTED Normal [facility] Comment on above: Performed By: #### C DP, IPF, BMP #### [facility] [employer] [address] [place] [address] Injection Molding Process Technician: Brandan Ugalde MD WBC Morphology NOT REPORTED Normal [facility] Comment on above: Performed By: #### C DP, IPF, BMP #### [facility] [employer] [address] [place] [address] Injection Molding Process Technician: Brandan Ugalde MD Immature Platelet Fractionon 09-28-2021 Interpretation and review of laboratory results Abnormal [facility] [employer] Platelet, Fluorescence 147 Comment on above: ORDERED BY LAB Platelet, Immature Fraction 0.4 % Low 1.1 - 10.3 % Comment on above: ORDERED BY LAB LACTIC ACID, WHOLE BLOODon 0 09-28-2021 Lactic Acid, Whole Blood 1.4 mmol/L 0.7 - 2.1 mmol/L [facility] Lactic Acid,Whole Blon 09-28 Lactic Acid,Whole Bl 1.4 mmol/L Normal 0.7-2.1 [facility] Comment on above: Performed By: #### L ACWB #### [employer] [address] [place] [address] Injection Molding Process Technician: Brandan Ugalde MD MRSA, DNA, Nasalon 2 Specimen Description .NASAL SWAB Normal [facility] Comment on above: Performed By: #### C DP, IPF, BMP #### [employer] [address] [place] [address] Injection Molding Process Technician: Brandan Ugalde MD Magnesiumon 09-28-2021 Magnesium [Mass/Vol] 1.8 mg/dL 1.6 - 2.6 mg/dL Magnesium [Mass/Vol] 1.9 mg/dL Normal 1.6-2.6 [facility] Comment on above: Performed By: #### C DP, IPF, BMP #### [employer] [address] [place] [address] Injection Molding Process Technician: Brandan Ugalde MD Magnesium [Mass/Vol] 1.9 mg/dL 1.6 - 2.6 mg/dL Magnesium [Mass/Vol] 2.1 mg/dL Normal 1.6-2.6 [facility] Comment on above: Performed By: #### B MP, MG, MARZENA #### [employer] [address] [place] [address] Injection Molding Process Technician: Brandan Ugalde MD Magnesium [Mass/Vol] 2.1 mg/dL 1.6 - 2.6 mg/dL Microscopic Urinalysison - Amorphous, UA NOT REPORTED None [facility] Bacteria, UA NOT REPORTED None [facility] th Casts UA FINE GRANULAR [facility]A 5 TO 10 Crystals, UA NOT REPORTED None /HPF [facility] th Epithelial Cells UA 5 TO 10 Interpretation and review of laboratory results Abnormal Mucus, UA NOT REPORTED None Other Observations UA NOT REPORTED NOT REQ. M [facility] RBC, UA 5 TO 10 Renal Epithelial, UA NOT REPORTED 0 /HPF [facility] Trichomonas, UA NOT REPORTED None [facility] ealt WBC, UA 5 TO 10 Yeast, UA MODERATE Abnormal None [facility] No Panel Informationon 09-28 Interpretation and review of laboratory results Abnormal [facility] Interpretation and review of laboratory results Abnormal [facility] Interpretation and review of laboratory results Abnormal [facility] PLT, Immature Fract.on 09-28 Platelet, Fluoresc. 147 k/uL Normal 138-[address] [facility] Comment on above: Result Comment: ORDE RED BY LAB Performed By: #### C DP, IPF, BMP #### [facility] [address] [place], [place] [id number] Injection Molding Process Technician: Brandan Ugalde MD PLT, Immature Fract. 0.4 % Low 1.1-10.3 [facility] Comment on above: Result Comment: ORDE RED BY LAB Performed By: #### C DP, IPF, BMP #### [facility] [employer] [address] [place], [place] [id number] Injection Molding Process Technician: Brandan Ugalde MD POC Glucose Fingerstickon Glucose [Mass/Vol] 140 mg/dL High 65 - 105 mg/dL [facility] Interpretation and review of laboratory results Abnormal [facility] Glucose [Mass/Vol] 148 mg/dL High 65 - 105 mg/dL [facility] Interpretation and review of laboratory results Abnormal [facility] Glucose [Mass/Vol] 161 mg/dL High 65 - 105 mg/dL [facility] Interpretation and review of laboratory results Abnormal [facility] Glucose [Mass/Vol] 176 mg/dL High 65 - 105 mg/dL [facility] Interpretation and review of laboratory results Abnormal [facility] Glucose [Mass/Vol] 212 mg/dL High 65 - 105 mg/dL [facility] Interpretation and review of laboratory results Abnormal [facility] Glucose [Mass/Vol] 223 mg/dL High 65 - 105 mg/dL [facility] Interpretation and review of laboratory results Abnormal [facility] Glucose [Mass/Vol] 208 mg/dL High 65 - 105 mg/dL [facility] Interpretation and review of laboratory results Abnormal [facility] Glucose [Mass/Vol] 248 mg/dL High 65 - 105 mg/dL [facility] Interpretation and review of laboratory results Abnormal [facility] Glucose [Mass/Vol] 217 mg/dL High 65 - 105 mg/dL [facility] Interpretation and review of laboratory results Abnormal [facility] Glucose [Mass/Vol] 205 mg/dL High 65 - 105 mg/dL [facility] Interpretation and review of laboratory results Abnormal [facility] Glucose [Mass/Vol] 199 mg/dL High 65 - 105 mg/dL [facility] Interpretation and review of laboratory results Abnormal [facility] Glucose [Mass/Vol] 178 mg/dL High 65 - 105 mg/dL [facility] Interpretation and review of laboratory results Abnormal [facility] Glucose [Mass/Vol] 151 mg/dL High 65 - 105 mg/dL [facility] Interpretation and review of laboratory results Abnormal [facility] Glucose [Mass/Vol] 162 mg/dL High 65 - 105 mg/dL [facility] Interpretation and review of laboratory results Abnormal [facility] Phosphoruson 09-28-2021 Phosphate [Mass/Vol] 1.9 mg/dL Low 2.6 - 4.5 mg/dL Phosphate [Mass/Vol] 1.6 mg/dL Low 2.6 - 4.5 mg/dL Phosphate [Mass/Vol] 1.9 mg/dL Low 2.6 - 4.5 mg/dL Phosphorus, Inorg.on 022 Phosphorus, Inorg. 1.6 mg/dL Low 2.6-4.[address] [facility] Comment on above: Performed By: #### C EMILIO MASON, BMP #### [facility] [address] [place] [address] Injection Molding Process Technician: Brandan Ugalde MD Phosphorus, Inorg. 1.9 mg/dL Low 2.6-4.[address] [facility] Comment on above: Performed By: #### C ISABELLA, EMILIO, BMP #### [facility] [address] [place], [place] [id number] Injection Molding Process Technician: Brandan Ugalde MD Urinalysison 09-28-2021 Bilirubin Urine Negative NEGATIVE [facility] lt Color, UA Yellow Yellow Glucose, Ur 1+ Abnormal NEGATIVE Interpretation and review of laboratory results Abnormal Ketones Ql (U) SMALL Abnormal NEGATIVE [facility] Leukocyte esterase Test strip Ql (U) MODERATE Abnormal NEGATIVE Nitrite, Urine Negative NEGATIVE [facility] pH, UA 5.5 Protein, UA 2+ Abnormal NEGATIVE Specific [place], UA 1.016 [facility] Turbidity UA Turbid Abnormal Clear Urinalysis Comments NOT REPORTED [facility] Urine Hgb LARGE Abnormal NEGATIVE Urobilinogen, Urine Normal Normal [facility] Urinalysis, Routineon 2021 Bilirubin, SemiQt,Ur Negative Normal NEG [facility] Comment on above: Performed By: #### U A, UMICAO #### [facility] [address] [place] [address] Injection Molding Process Technician: Brandan Ugalde MD Blood, Urine LARGE Abnormal NEG [facility] Comment on above: Performed By: #### U A, UMJOSEO #### [facility] [address] [place], [place] [address] Injection Molding Process Technician: Brandan Ugalde MD Clarity (U) Turbid Abnormal CLEAR [facility] Comment on above: Performed By: #### U A, UMICAO #### [facility] [employer] [address] [place] [address] Injection Molding Process Technician: Brandan Ugalde MD Color (U) Yellow Normal YEL [facility] Comment on above: Performed By: #### U A, UMICAO #### [address] [address] In[employer] Molding Process Technician: Brandan Ugalde MD Glucose Ql (U) 1+ Abnormal NEG [facility] Comment on above: Performed By: #### U A, UMICAO #### [address] [address] In[employer] Molding Process Technician: Brandan Ugalde MD Ketones Ql (U) SMALL Abnormal NEG [facility] Comment on above: Performed By: #### U A UMICAO #### [address] [address] In[employer] Molding Process Technician: Brandan Ugalde MD Leukocyte esterase Test strip Ql (U) MODERATE Abnormal NEG [facility] Comment on above: Performed By: #### U A UMICAO #### [address] [address] Injection Molding Process Technician: Brandan Ugalde MD Nitrite,Ur Negative Normal NEG [facility] Comment on above: Performed By: #### U A UMICAO #### [facility] [employer] [address] [place] [address] Injection Molding Process Technician: Brandan Ugalde MD PH,Ur 5.5 Normal 5.0-8.[address] [facility] Comment on above: Performed By: #### U A, UMICAO #### [facility] [employer] [address] [place] [address] Injection Molding Process Technician: Brandan Ugalde MD Protein Ql (U) 2+ Abnormal NEG [facility] Comment on above: Performed By: #### U A, UMICAO #### [facility] [employer] [address] [place] [address] Injection Molding Process Technician: Brandan Ugalde MD Spec. [place],Ur 1.016 Normal 1.005-1.[address] [facility] Comment on above: Performed By: #### U A, UMICAO #### [facility] [employer] [address] [place] [address] Injection Molding Process Technician: Brandan Ugalde MD Urobilinogen,Ur Normal Normal NORM [facility] Comment on above: Performed By: #### U A UMICAO #### [address] [address] In[employer] M[employer] Process Technician: Brandan Ugalde MD Comment NOT REPORTED Normal [facility] Comment on above: Performed By: #### U A UMICAO #### [address] [address] In[employer] M[employer] Process Technician: Brandan Ugalde MD Urinalysis,Microon 2 ----- Normal [facility] Comment on above: Performed By: #### U A, UMICAO #### [address] [address] In[employer] M[employer] Process Technician: Brandan Ugalde MD Casts FINE GRANULAR Normal 0-[address] [facility] Comment on above: Result Comment: 5 TO 10 Performed By: #### U A, UMICAO #### [address] [address] [employer] Process Technician: Brandan Ugalde MD Epithelial cells LM Ql (Urine sed) 5 TO 10 Normal 0-[address] [facility] Comment on above: Performed By: #### U A, UMICAO #### [address] [address] In[employer] Molding Process Technician: Brandan Ugalde MD Urine RBC's 5 TO 10 Normal 0-[address] [facility] Comment on above: Performed By: #### U A, UMICAO #### [facility] [address] [place] [address] Injection Molding Process Technician: Brandan Ugalde MD Urine WBC's 5 TO 10 Normal 0-[address] [facility] Comment on above: Performed By: #### U A, UMICAO #### [facility] [address] [place] [address] In[employer] M[employer] Process Technician: Brandan Ugalde MD Yeast MODERATE Abnormal NONE [facility] [facility] Comment on above: Performed By: #### U A, UMICAO #### [facility] [employer] [address] [place] [address] Injection Molding Process Technician: Brandan Ugalde MD Amorphous sediment LM Ql (Urine sed) NOT REPORTED Normal NONE [facility] Comment on above: Performed By: #### U A, UMICAO #### [facility] [employer] [address] [place] [address] Injection Molding Process Technician: Brandan Ugalde MD Bacteria NOT REPORTED Normal NONE [facility] Comment on above: Performed By: #### U A, UMICAO #### [facility] [employer] [address] [place] [address] Injection Molding Process Technician: Brandan Ugalde MD Crystals LM Nom (Urine sed) NOT REPORTED Normal NONE [facility] Comment on above: Performed By: #### U A, UMICAO #### [facility] [address] [place] [address] Injection Molding Process Technician: Brandan Ugalde MD Epithelial, Renal NOT REPORTED Normal [address] [facility] Comment on above: Performed By: #### U A, UMICAO #### [facility] [address] [place] [address] Injection Molding Process Technician: Brandan Ugalde MD Mucus Strands NOT REPORTED Normal [facility] Comment on above: Performed By: #### U ACOLLEENICAO #### [address] [address] Injection Molding Process Technician: Brandan Ugalde MD Other Observations NOT REPORTED Normal [facility] Comment on above: Performed By: #### U A UMICAO #### [address] [address] Injection Molding Process Technician: Brandan Ugalde MD Trichomonas NOT REPORTED Normal NONE [facility] Comment on above: Performed By: #### U AFRANKO #### [address] [address] Injection Molding Process Technician: Brandan Ugalde MD Venous Blood Gaseson 022 Body Temp. 37.[address] [facility] Comment on above: Performed By: #### V BG #### [address] [address] Injection Molding Process Technician: Brandan Ugalde MD Carboxy Hgb 2.2 % Normal 0-[address] [facility] Comment on above: Result Comment: Reference Range: Non-Smokers 0-2% Average Smoker 2-4% Heavy Smoker <10% Performed By: #### V BG #### [address] [address] Injection Molding Process Technician: Brandan Ugalde MD FIO2 UNKNOWN Normal [facility] Comment on above: Performed By: #### V BG #### [address] [address] Injection Molding Process Technician: Brandan Ugalde MD HCO3 (Bld) [Moles/Vol] 17.3 mmol/L Low 24-[address] [facility] Comment on above: Performed By: #### V BG #### [address] [address] Injection Molding Process Technician: Brandan Ugalde MD Negative Base Excess 8.2 mmol/L High 0.0-2.0 [facility] Comment on above: Performed By: #### V BG #### [address] [address] Injection Molding Process Technician: Brandan Ugalde MD Oxygen (Bld) [Partial pressure] 34.0 mm[Hg] Normal 30-[address] [facility] Comment on above: Performed By: #### V BG #### [address] [address] Injection Molding Process Technician: Brandan Ugalde MD Oxygen saturation in Blood 80.7 % Normal 60.0-85.[address] [facility] Comment on above: Performed By: #### V BG #### [address] [address] Injection Molding Process Technician: Brandan Ugalde MD pCO2 37.0 Low 39-[address] [facility] Comment on above: Performed By: #### V BG #### [address] [address] Injection Molding Process Technician: Brandan Ugalde MD pH (Bld) 7.290 [pH] Low 7.320-7.[address] [facility] Comment on above: Performed By: #### V BG #### [address] [address] Injection Molding Process Technician: Brandan Ugalde MD Josh Test NOT REPORTED Normal [facility] Comment on above: Performed By: #### V BG #### [address] [address] Injection Molding Process Technician: Brandan Ugalde MD Methemoglobin NOT REPORTED Normal 0.0-1.[address] [facility] Comment on above: Performed By: #### V BG #### [address] [address] Injection Molding Process Technician: Brandan Ugalde MD Mode NOT REPORTED Normal [facility] Comment on above: Performed By: #### V BG #### [address] [address] Injection Molding Process Technician: Brandan Ugalde MD Notification Time NOT REPORTED Normal [facility] Comment on above: Performed By: #### V BG #### [address] [address] Injection Molding Process Technician: Brandan Ugalde MD Notification: NOT REPORTED Normal [facility] Comment on above: Performed By: #### V BG #### [address] [address] Injection Molding Process Technician: Brandan Ugalde MD O2 Device/Flow/% NOT REPORTED Normal [facility] Comment on above: Performed By: #### V BG #### [address] [address] Injection Molding Process Technician: Brandan Ugalde MD Oxyhemoglobin NOT REPORTED Normal 95.0-98.[address] [facility] Comment on above: Performed By: #### V BG #### [address] [address] Injection Molding Process Technician: Brandan Ugalde MD Pco2 Adj'd for Temp. NOT REPORTED Normal 39-55 [facility] Comment on above: Performed By: #### V BG #### [address] [address] Injection Molding Process Technician: Brandan Ugalde MD PEEP/CPAP NOT REPORTED Normal [facility] Comment on above: Performed By: #### V BG #### [facility] [employer] [address] [place] [address] Injection Molding Process Technician: Brandan Ugalde MD pH Adjst'd for Temp. NOT REPORTED Normal 7.320-7.420 [facility] Comment on above: Performed By: #### V BG #### [address] [address] Injection Molding Process Technician: Brandan Ugalde MD pO2 Adj'd for Temp. NOT REPORTED Normal 30-50 [facility] Comment on above: Performed By: #### V BG #### [address] [address] Injection Molding Process Technician: Brandan Ugalde MD Positive Base Excess NOT REPORTED Normal 0.0-2.0 [facility] Comment on above: Performed By: #### V BG #### [address] [address] Injection Molding Process Technician: Brandan Ugalde MD PSV NOT REPORTED Normal [facility] Comment on above: Performed By: #### V BG #### [address] [address] Injection Molding Process Technician: Brandan Ugalde MD Pt. Position NOT REPORTED Normal [facility] Comment on above: Performed By: #### V BG #### [address] [address] Injection Molding Process Technician: Brandan Ugalde MD Respiratory Rate NOT REPORTED Normal [facility] Comment on above: Performed By: #### V BG #### [address] [address] Injection Molding Process Technician: Brandan Ugalde MD Set Rate NOT REPORTED Normal [facility] Comment on above: Performed By: #### V BG #### [facility] [employer] [address] [place] [address] Injection Molding Process Technician: Brandan Ugalde MD Site Drawn NOT REPORTED Normal [facility] Comment on above: Performed By: #### V BG #### [facility] [employer] [address] [place] [address] Injection Molding Process Technician: Brandan Ugalde MD Text for Respiratory NOT REPORTED Normal [facility] Comment on above: Performed By: #### V BG #### [facility] [address] [place], [place] [id number] Injection Molding Process Technician: Brandan Ugalde MD Total Hb NOT REPORTED Normal 12.0-16.[address] [facility] Comment on above: Performed By: #### V BG #### [facility] [address] [place] [address] Injection Molding Process Technician: Brandan Ugalde MD Total Rate NOT REPORTED Normal [facility] Comment on above: Performed By: #### V BG #### [employer] [address] [place] [address] Injection Molding Process Technician: Brandan Ugalde MD VT NOT REPORTED Normal [facility] Comment on above: Performed By: #### V BG #### [facility] [address] [place] [address] Injection Molding Process Technician: Brandan Ugalde MD XR CHEST PORTABLEon 09-28-19 [...] Perla Sommer MD 09/28/21 Final result Normal [facility] Bilateral scattered pulmonary opacities consistent with multifocal [...] No effusion or extrapleural air is noted. MHPN RIS CONSOLIDATED Perla Sommer MD - 09/28/2021 [...] with multifocal airspace disease/pneumonia. No extrapleural air. [employer] Phone: Radiology Study observation (narrative) [employer] Phone: XR CHEST PORTABLEOrdered By: Perla Sommer on 09-28-2021 [employer] Phone: ANKLE LEFT MIN 3 VIEWS Mon 0 05-23-2021 ANKLE LEFT MIN 3 VIEWS M Patient Name: CARISSA LOZADA Patient Patient : 1980 Examination: ANKLE [...] Mt Ho MD On: 05/23/2021 1:42 PM [facility] Consent for Treatmenton 0 Consent for Treatment [id number] 1 [id number] Normal [facility] ED Clinical Summaryon 2020 ED Clinical Summary [place] [id number] ED Clinical Summary Person Information Name: CARISSA LOZADA/New_Ramon Age: 40 Years : 1980 Sex: Female Language: Cambodian PCP: DIAZ BETTS MD Marital Status: Visit [...] 02:47:40 02/06/2021 02:47:40 ADDRESS: [place] [phone] PHYS DOC NOTES: MEDICAL INFORMATION: Prescriptions Given: PATIENT EDUCATION INFORMATION: Instructions: Follow up: DIAGNOSIS: Normal [facility] ED Patient Education Noteon 02-06-2021 ED Patient Education Note Normal [facility] ED Patient Summaryon 021 ED Patient Summary [place] [id number] Patient Discharge Instructions Person Information Name: CARISSA LOZADA Age: 40 Years Arrival Date: 02/05/2021 22:28:14 Discharge Diagnosis: Primary Care Physician: DIAZ BETTS MD Provider Information Primary Provider: Loco Marcos MD Advanced Skein Drier:None The exam and treatment you received in the Emergency Department were for an urgent problem and are not intended as complete care. It is important that you follow up with a doctor, nurse practitioner, or physician?s assistant accounting manager for ongoing care. If your symptoms become worse or you do not improve as expected and you are unable to reach your usual health care provider, you should return to the Emergency Department. We are available 24 hours a day. CARISSA LOZADA has been given the following list [...] opioids can be used to help relieve kpbatehk-fm-jonhyr pain and are often prescribed following a [...] be struggling with addiction, tell your health occasional caregiver and ask for guidance or call [employer] National Helpline at 5-357-253-HELP. v Source: [place] Department of Health and Human Services/Center for Disease Control & Prevention [facility] Medications Given: Medication Dose Route No medications found. Medication Inf (more content not included)... Normal [facility] CHEST AND LATERALon 02-05-20 CHEST AND LATERAL [facility] Department of Radiology [address] [place] [address] Patient Name: CARISSA LOZADA : 1980 Sex: F Age: Race: White Pt. Location: Patient Status: O Ordered Date: 02/04/2021 9:40:00 [...] spine. Electronically signed: Shama Calvin. Transcribed by: Naz, User Resident: Electronically Signed by: SHAMA CALVIN @ 02/04/2021 02:25 PM Normal [facility] Comment on above: Order Comment: ap/la t HUMERUS LEFTon 02-04-2021 HUMERUS LEFT [facility] Department of Radiology [address] [place] [id number] Patient Name: CARISSA LOZADA : 1980 Sex: F Age: Race: White Pt. Location: 84 Patient Status: Ordered Date: 02/04/2021 8:55:00 AM Completed Date: 02/04/2021 09:20 AM Requesting Provider: ALIYA RUIZ Attending Provider: Report Copy To: Signs & Symptoms: R22.32 Localized swelling, mass and lump, left upper limb I10 History: Turrell Comments: Evaluate Exam: HUMERUS LEFT HUMERUS LEFT CLINICAL INFORMATION: Patient complains of left shoulder and humerus pain and swelling for three years COMPARISON: None. IMPRESSION: 1. No fracture or other acute osseous abnormalities identified. No abnormal sclerosis. Electronically signed: Shama Calvin. Transcribed by: [email or web address], User Resident: Electronically Signed by: SHAMA CALVIN @ 02/04/2021 01:59 PM Normal [facility] Comment on above: Order Comment: Evalu ate SHOULDER LEFTon 02-04-2021 SHOULDER LEFT [facility] Department of Radiology [address] [place] [id number] Patient Name: CARISSA LOZADA : 1980 Sex: F Age: Race: White Pt. Location: Patient Status: Ordered Date: 02/04/2021 8:55:00 AM Completed Date: 02/04/2021 09:20 AM Requesting Provider: ALIYA RUIZ Attending Provider: Report Copy To: Signs & Symptoms: R22.32 Localized swelling, mass and lump, left upper limb I10 History: Keri Comments: Evaluate Exam: SHOULDER LEFT SHOULDER LEFT CLINICAL INFORMATION: Patient complains of left shoulder and humerus pain and swelling for three years COMPARISON: None. IMPRESSION: 1. No fracture. No dislocation. The alignment of the glenohumeral joint is normal. There are no significant acromioclavicular or glenohumeral degenerative changes. No osteophytic spurring or abnormal sclerosis. Electronically signed: Shama Calvin. Transcribed by: [email or web address], User Resident: Electronically Signed by: SHAMA CALVIN @ 02/04/2021 01:58 PM Normal [facility] Comment on above: Order Comment: Evalu ate Vital Signs Date Time Vital Sign Value Performing Clinician Facility 08-06-2024 11:33-0500 Body height 154.9 cm Diaz Betts MD Work Phone: [facility] 08-06-2024 11:33-0500 Body mass index (BMI) [Ratio] 42.89 kg/m2 Diaz Betts MD Work Phone: [facility] 08-06-2024 11:33-0500 Body temperature 97.11 [degF] Diaz Betts MD Work Phone: [facility] 08-06-2024 11:33-0500 Body weight 102.97 kg Diaz Betts MD Work Phone: [facility] 08-06-2024 11:33-0500 Diastolic blood pressure 90 mm[Hg] Diaz Betts MD Work Phone: [facility] 08-06-2024 11:33-0500 Heart rate 102 /min Diaz Betts MD Work Phone: [facility] 08-06-2024 11:33-0500 Respiratory rate 22 /min Diaz Betts MD Work Phone: [facility] 08-06-2024 11:33-0500 SaO2% (BldA) [Mass fraction] 98 % Diaz Betts MD Work Phone: [facility] 08-06-2024 11:33-0500 Systolic blood pressure 142 mm[Hg] Diaz Betts MD Work Phone: [facility] 07-18-2024 11:06-0500 Body height 154.9 cm Hair See MD Work Phone: [facility] 07-18-2024 11:06-0500 Body mass index (BMI) [Ratio] 44.18 kg/m2 Hair See MD Work Phone: [facility] 07-18-2024 11:06-0500 Body weight 106.05 kg Hair See MD Work Phone: [facility] 07-18-2024 11:06-0500 Diastolic blood pressure 94 mm[Hg] Hair See MD Work Phone: [facility] 07-18-2024 11:06-0500 Heart rate 90 /min Hair See MD Work Phone: [facility] 07-18-2024 11:06-0500 SaO2% (BldA) [Mass fraction] 99 % Hair See MD Work Phone: [facility] 07-18-2024 11:06-0500 Systolic blood pressure 128 mm[Hg] Hair See MD Work Phone: [facility] 07-04-2024 09:10-0400 Diastolic blood pressure 84 mm[Hg] [facility] 07-04-2024 09:10-0400 Heart rate 90 /min [facility] 07-04-2024 09:10-0400 Systolic blood pressure 148 mm[Hg] [facility] 06-13-2024 12:59-0400 Body height 154.9 cm Lindsay Arrieta DO Work Phone: [facility] 06-13-2024 12:59-0400 Body mass index (BMI) [Ratio] 43.42 kg/m2 Lindsay Arrieta DO Work Phone: [facility] 06-13-2024 12:59-0400 Body weight 104.24 kg Lindsay Arrieta DO Work Phone: [facility] 06-13-2024 12:59-0400 Diastolic blood pressure 73 mm[Hg] Lindsay Arrieta DO Work Phone: [facility] 06-13-2024 12:59-0400 Heart rate 93 /min Lindsay Arrieta DO Work Phone: [facility] 06-13-2024 12:59-0400 SaO2% (BldA) [Mass fraction] 100 % Lindsay Arrieta DO Work Phone: [facility] Comment on above: Arrived on 3Lnc of O2 06-13-2024 12:59-0400 Systolic blood pressure 136 mm[Hg] Lindsay Arrieta DO Work Phone: [facility] 11-15-2023 09:05-0400 Body height 154.9 cm [employer] [facility] 11-15-2023 09:05-0400 Body mass index (BMI) [Ratio] 41.38 kg/m2 [employer] [facility] 11-15-2023 09:05-0400 Body weight 99.34 kg [employer] [facility] 11-10-2023 11:07-0500 Body height 154.9 cm Libby Finley MD Work Phone: [facility] 11-10-2023 11:07-0500 Body mass index (BMI) [Ratio] 43.27 kg/m2 Libby Finley MD Work Phone: [facility] 11-10-2023 11:07-0500 Body weight 103.87 kg Libby Finley MD Work Phone: [facility] 11-10-2023 11:07-0500 Diastolic blood pressure 81 mm[Hg] Libby Finley MD Work Phone: [facility] 11-10-2023 11:07-0500 Heart rate 100 /min Libby Finley MD Work Phone: [facility] 11-10-2023 11:07-0500 Systolic blood pressure 122 mm[Hg] Libby Finley MD Work Phone: [facility] 11-09-2023 08:55-0500 Body mass index (BMI) [Ratio] 43.27 kg/m2 Angela Witt MD Work Phone: [facility] 11-09-2023 08:55-0500 Body temperature 97.3 [degF] Angela Witt MD Work Phone: [facility] 11-09-2023 08:55-0500 Body weight 103.87 kg Angela Witt MD Work Phone: [facility] 11-09-2023 08:55-0500 Diastolic blood pressure 81 mm[Hg] [facility] 11-09-2023 08:55-0500 Heart rate 103 /min [facility] Witt [facility] 11-09-2023 08:55-0500 Respiratory rate 18 /min Angela Witt MD [facility] 11-09-2023 08:55-0500 SaO2% (BldA) [Mass fraction] 95 % Angela Witt [facility] 11-09-2023 08:55-0500 Systolic blood pressure 129 mm[Hg] Angela Witt [facility] 10-03-2021 11:29-0500 Body temperature 97.5 [degF] Jamal Levine MD Work Phone: [employer] 10-03-2021 11:29-0500 Diastolic blood pressure 80 mm[Hg] Jamal Levine MD Work Phone: [employer] 10-03-2021 11:29-0500 Heart rate 85 /min Jamal Levine MD Work Phone: [employer] 10-03-2021 11:29-0500 Respiratory rate 16 /min Jamal Levine MD Work Phone: [employer] 10-03-2021 11:29-0500 SaO2% (BldA) [Mass fraction] 97 % Jamal Levine MD Work Phone: [employer] 10-03-2021 11:29-0500 Systolic blood pressure 126 mm[Hg] Jamal Levine MD Work Phone: [employer] 09-29-2021 06:00-0500 Body mass index (BMI) [Ratio] 43.59 kg/m2 Jamal Levine MD Work Phone: [employer] 09-29-2021 06:00-0500 Body weight 101.24 kg Jamal Levine MD Work Phone: 09-28-2021 09:30-0500 Body height 152.4 cm Jamal Levine MD Work Phone: Encounters Encounter Date Encounter Type Care Provider Facility Start: 08-06-2024 End: 08-06-2024 Bamboo flowsheet Diaz Betts MD Work Phone: [facility] Start: 08-06-2024 End: 08-06-2024 Bamboo flowsheet Diaz Betts MD Work Phone: [facility] Start: 08-06-2024 End: 08-06-2024 Office outpatient visit 25 minutes Diaz Betts MD Work Phone: [facility] Comment on above: Chronic hypoxic resp iratory failure (CMS/HCC) (Primary Dx); Chronic heart failure with preserved ejection fraction (HFpEF) (CMS/HCC); Type 2 diabetes mellitus with hyperglycemia, with long-term current use of insulin (CMS/HCC); Pulmonary hypertension (CMS/HCC); Colon cancer screening; Gastroesophageal reflux disease without esophagitis Start: 08-05-2024 End: 08-05-2024 Refill Diaz Betts MD Work Phone: [facility] Comment on above: Type 2 diabetes sanjana itus with hyperglycemia, with long-term current use of insulin (CMS/HCC) Start: 07-30-2024 End: 07-30-2024 Telephone encounter Ramona Covarrubias Call Carolyn cespedes Comment on above: CRITICAL LAB Abnormal Lab Start: 07-30-2024 End: 07-30-2024 ambulatory Cassy Davila ARMED SECURITY GUARD-HEAVY DUTY CUSTODIAN Work Phone: [employer] [facility] [employer] Start: 07-29-2024 End: 07-29-2024 Refill Diaz Betts MD Work Phone: [facility] Comment on above: Type 2 diabetes sanjana itus with hyperglycemia, with long-term current use of insulin (CMS/HCC) Start: 07-21-2024 End: 07-23-2024 ambulatory [facility] Start: 07-18-2024 End: 07-18-2024 Office outpatient visit 25 minutes Hair See MD Work Phone: [facility] Comment on above: Dyspnea on exertion (Primary Dx); Pulmonary hypertension (CMS-HCC) Start: 07-18-2024 End: 07-18-2024 ambulatory [facility] Start: 07-17-2024 End: 07-17-2024 Telephone encounter Bethanie Patricia CMA [facility] Start: 07-15-2024 End: 07-15-2024 Bamboo flowsheet Barry Snowden PRODUCTION COUNTER Work Phone: [facility] Start: 07-15-2024 End: 07-15-2024 Bamboo flowsheet Barry Snowden PRODUCTION COUNTER Work Phone: [facility] Start: 07-15-2024 End: 07-15-2024 Postop follow up visit related to original px Barry Snowden PRODUCTION COUNTER Work Phone: [facility] Comment on above: Status post carpal t unnel release (Primary Dx) Start: 07-15-2024 End: 07-15-2024 ambulatory BARRY SNOWDEN Not Available Start: 07-10-2024 End: 07-10-2024 Orders Only Diaz Betts MD Work Phone: [facility] Comment on above: Anxiety state (CMS/H CC) Start: 07-08-2024 End: 07-08-2024 Orders Only Diaz Betts MD Work Phone: [facility] Comment on above: Anxiety state (CMS/H CC) Start: 07-04-2024 End: 07-04-2024 Clinical Support Pmh Ppc Nurse [facility] Comment on above: Pulmonary hypertensi on (CMS-HCC) (Primary Dx) Start: 07-04-2024 End: 07-04-2024 ambulatory [facility] Start: 07-03-2024 End: 07-03-2024 Telephone encounter Bethanie Patricia CMA [facility] Start: 06-28-2024 End: 06-29-2024 Emergency department patient visit DIAZ BETTS [facility] Start: 06-24-2024 End: 06-24-2024 Bamboo flowsheet Barry Snowden PRODUCTION COUNTER Work Phone: [facility] Start: 06-24-2024 End: 06-24-2024 Bamboo flowsheet Barry Snowden PRODUCTION COUNTER Work Phone: [facility] Start: 06-24-2024 End: 06-24-2024 Postop follow up visit related to original px Barry Snowden PRODUCTION COUNTER Work Phone: [facility] Comment on above: Status post carpal t unnel release (Primary Dx) Start: 06-24-2024 End: 06-24-2024 ambulatory BARRY SNOWDEN Not Available Start: 06-20-2024 End: 06-20-2024 Telephone encounter Rochelle Lovell [facility] Comment on above: Cardiac Cath Start: 06-20-2024 End: 06-20-2024 [facility] Start: 06-19-2024 End: 06-19-2024 Telephone encounter Bethanie Patricia CMA [facility] Start: 06-18-2024 End: 07-15-2024 Telephone encounter Arianna Miller DO Work Phone: [facility] Start: 06-17-2024 End: 06-17-2024 ambulatory Arianna Miller Facility:[facility] Start: 06-14-2024 End: 06-14-2024 Refill Barry Snowden PRODUCTION COUNTER Work Phone: [facility] Comment on above: Post-operative pain (Primary Dx) Start: 06-13-2024 End: 06-13-2024 Office outpatient visit 25 minutes Lindsay Arrieta DO Work Phone: [facility] Comment on above: Moderate persistent asthma without complication (Primary Dx); Obstructive sleep apnea syndrome; Pulmonary nodule; Chronic hypoxic respiratory failure (CMS-HCC) Start: 06-13-2024 End: 06-13-2024 ambulatory [facility] Start: 06-07-2024 End: 06-07-2024 Telephone encounter Diaz Betts MD Work Phone: [facility] Start: 06-03-2024 End: 06-07-2024 Telephone encounter Arianna Miller DO Work Phone: [facility] Comment on above: medical clearance Start: 05-30-2024 End: 05-30-2024 ambulatory ARIANNA MILLER Not Available Start: 05-29-2024 End: 05-29-2024 ambulatory DIAZ BETTS Not Available Start: 05-28-2024 End: 05-28-2024 ambulatory [facility] Start: 05-16-2024 End: 05-17-2024 Emergency department patient visit REBA [facility] Start: 05-14-2024 End: 05-14-2024 ambulatory [facility] Start: 05-13-2024 End: 05-13-2024 ambulatory DIAZ BETTS Not Available Start: 04-24-2024 End: 04-24-2024 ambulatory FELIZ BENZ Not Available Start: 04-23-2024 End: 04-23-2024 ambulatory [facility] Start: 04-22-2024 End: 04-24-2024 ambulatory [facility] Start: 04-16-2024 End: 04-16-2024 ambulatory [facility] Facility:[facility] Start: 04-09-2024 End: 04-09-[address] [facility] Start: 04-04-2024 End: 04-04-2024 ambulatory ARIANNA MILLER Not Available Start: 04-03-2024 End: 04-03-2024 ambulatory [facility] Facility:[facility] Start: 03-19-2024 End: 03-19-2024 ambulatory THERESA GUERRA Not Available Start: 03-18-2024 [facility] Start: 03-12-2024 ambulatory LINDSAY M [facility] Start: 02-15-2024 End: 03-04-2024 ambulatory DIAZ [facility] Start: 02-13-2024 End: 02-13-2024 ambulatory [facility] Start: 02-12-2024 End: 02-12-2024 ambulatory DIAZ BETTS Not Available Start: 02-08-2024 End: 02-08-2024 ambulatory [facility] Start: 01-05-2024 End: 07-10-2024 Telephone encounter Lindsay Arrieta DO Work Phone: [facility] Start: 01-04-2024 End: 01-04-2024 ambulatory DIAZ BETTS Not Available Start: 12-28-2023 End: 12-28-2023 ambulatory ARIANNA MILLER Not Available Start: 12-20-2023 End: 12-24-2023 Emergency department patient visit OFELIA Lynda [facility] Start: 12-20-2023 End: 12-23-2023 ambulatory DIAZ [facility] Start: 12-14-2023 End: 12-14-2023 ambulatory BARRY SNOWDEN Not Available Start: 11-28-2023 Telephone encounter Libby wilde MD Work Phone: [facility] Start: 11-23-2023 End: 11-23-2023 Evaluation and management of inpatient RAEANN L [facility] Start: 11-22-2023 End: 11-23-2023 Evaluation and management of inpatient [facility] Start: 11-22-2023 End: 11-22-2023 Evaluation and management of inpatient [facility] Start: 11-20-2023 End: 11-20-2023 ambulatory FELIZ BENZ Not Available Start: 11-17-2023 End: 11-17-2023 ambulatory [facility] Start: 11-15-2023 End: 11-15-2023 Evaluation and management of inpatient DIAZ BETTS [facility] Start: 11-15-2023 End: 11-15-[address] [facility] Pat Phone Call Provider 4 Marci Zuniga [facility] Start: 11-10-2023 End: 11-10-2023 ambulatory LIBBY FINLEY [facility] Start: 11-10-2023 End: 11-10-2023 Office outpatient new 45 minutes Libby Finley MD Work Phone: [facility] Comment on above: Mediastinal lymphade nopathy (Primary Dx); Pulmonary nodule; Morbid obesity (CMS-HCC) Start: 11-09-2023 End: 11-09-2023 Orders Only Ana Mckeon CMA [facility] - Kuldip Quirozer Comment on above: Mediastinal lymphade nopathy (Primary Dx) Start: 11-09-2023 End: 11-09-2023 Office consultation new/estab patient 60 min Angela Witt MD Work Phone: [facility] - [place] Comment on above: Cavitary lesion of l yasmeen Start: 11-06-2023 End: 11-06-2023 ambulatory BARRY HOANGEN Not Available Start: 11-02-2023 End: 11-02-2023 ambulatory DIAZ BETTS Not Available Start: 10-27-2023 End: 10-28-2023 Emergency department patient visit [facility] Start: 10-27-2023 End: 10-27-2023 Emergency department patient visit DIAZ BETTS [facility] Start: 10-27-2023 End: 10-28-2023 Emergency department patient visit [facility] Start: 10-26-2023 End: 10-26-2023 [facility] Start: 10-24-2023 Documentation procedure Bethanie rojo [facility]uldip Quirozer Start: 10-20-2023 End: 10-20-2023 ambulatory DIAZ BETTS [facility] Start: 10-10-2023 Documentation procedure [facility]anie [facility] - Kuldip Quirozer Start: 10-10-2023 End: 10-10-2023 Office outpatient visit 15 minutes Feliz Demar DO Work Phone: [facility] Comment on above: Amenorrhea Start: 10-05-2023 End: 10-05-2023 ambulatory BARRY SNOWDEN Not Available Start: 10-05-2023 End: 10-05-2023 Postop follow up visit related to original px Barry Snowden PRODUCTION COUNTER Work Phone: [facility] Comment on above: Status post carpal t unnel release (Primary Dx) Start: 09-26-2023 End: 09-26-2023 ambulatory FELIZ DEMAR Not Available Start: 09-25-2023 End: 09-25-2023 ambulatory [facility] Facility:[facility] Start: 09-13-2023 End: 09-13-2023 ambulatory [facility] Facility:[facility] Start: 09-11-2023 Documentation procedure Bethanie [facility] - [place] Start: 08-31-2023 End: 08-31-2023 ambulatory ARIANNA SARAHSTON Not Available Start: 08-10-2023 End: 08-10-2023 ambulatory DIAZ BETTS Not Available Start: 08-01-2023 End: 08-01-2023 ambulatory FELIZ DEMAR Not Available Start: 01-10-2023 End: 01-10-2023 ambulatory NICOLÁS WARREN . Facility:[facility] Start: 12-26-2022 End: 12-27-[address] FELIZ BENZ . Facility:[facility] Start: 12-07-2022 End: 12-07-2022 ambulatory ROBSON JACKSON [facility] Start: 11-21-2022 End: 11-21-2022 ambulatory [facility] Start: 11-04-2022 End: 11-04-2022 ambulatory ROBSON [facility] Start: 09-14-2022 End: 09-15-[address] FELIZ BENZ . Facility:[facility] Start: 07-14-2022 End: 07-14-[address] FELIZ BENZ . Facility:[facility] Start: 06-22-2022 End: 06-23-[address] FELIZ BENZ . Facility:[facility] Start: 02-23-2022 End: 02-24-[address] DIAZ BETTS Facility:[facility] Start: 01-23-2022 End: 01-23-[address] DIAZ BETTS Facility:[facility] Start: 09-30-2021 ambulatory DIAZ BETTS Fa cility:[facility] Start: 09-28-2021 End: 10-03-2021 [facility] Start: 09-28-2021 End: 10-03-2021 Evaluation and management of inpatient Jamal Levine MD Work Phone: [address] Burn Unit Start: 06-09-2015 End: 08-10-2023 Gynecological examination normal Barry Snowden NP Work Phone: [facility] Procedures Date Procedure Procedure Detail Performing Clinician Start: 06-30-2024 Mammography Diaz Betts MD Work Phone: Start: 06-20-2024 Follow-up visit Follow-up KATELYN RECIO Start: 02-08-2024 Follow-up visit Follow-up LINDSAY ARRIETA Start: 08-01-2023 Microscopic observation [Identifier] in Cervix by Cyto stain Diaz Betts MD Work Phone: Start: 06-30-2023 Mammography Barry Snowden NP Work Phone: Start: 06-05-2023 Adult depression screening assessment Bethanie Loredo Start: 07-14-2022 Microscopic observation [Identifier] in Cervix by Cyto stain Bethanie Loredo Start: 06-07-2022 Microalbumin [Mass/volume] in Urine by Test strip Bethanie Loredo Start: 10-03-2021 Glucose blood reagent strip Guido Cooku DO Work Phone: Start: 10-03-2021 Glucose blood reagent strip Guido Serna DO Work Phone: Start: 10-03-2021 Basic metabolic panel calcium total Terrance Smalls PA-C Work Phone: Start: 10-03-2021 IMMATURE PLATELET FRACTION Terrance Smalls PA-C Work Phone: Start: 10-02-2021 Glucose blood reagent strip Guido Serna DO Work Phone: Start: 10-02-2021 Glucose blood reagent strip Guido Serna DO Work Phone: Start: 10-02-2021 Glucose blood reagent strip Guido Serna DO Work Phone: Start: 10-02-2021 Renal function panel Guido Serna DO Work Phone: Start: 10-02-2021 Glucose blood reagent strip Guido Serna DO Work Phone: Start: 10-02-2021 End: 10-02-2021 Assay of phosphorus inorganic Terrance Smalls PA-C Work Phone: Start: 10-01-2021 Glucose blood reagent strip Guido Serna DO Work Phone: Start: 10-01-2021 Toxin/antitoxin assay tissue culture Omar Price MD Work Phone: Start: 10-01-2021 Glucose blood reagent strip Guido Serna DO Work Phone: Start: 10-01-2021 End: 10-01-2021 Electrolyte panel Terrance Munoz Work Phone: Start: 10-01-2021 Ct abdomen & pelvis w/o contrast material Guido Serna DO Work Phone: Start: 10-01-2021 Iadna-dna/rna gi pthgn multiplex probe tq 12-25 Guido Serna DO Work Phone: Start: 10-01-2021 RESPIRATORY PANEL, MOLECULAR, WITH COVID-19 Guido Serna DO Work Phone: Start: 10-01-2021 Glucose blood reagent strip Guido Serna DO Work Phone: Start: 10-01-2021 End: 10-01-2021 Electrolyte panel Guido Serna DO Work Phone: Start: 10-01-2021 Assay of magnesium Terrance Munoz Work Phone: Start: 10-01-2021 IMMATURE PLATELET FRACTION Terrance Smalls PA-C Work Phone: Start: 10-01-2021 Glucose blood reagent strip Maycol Gomez MD Work Phone: Start: 09-30-2021 End: 09-30-2021 Electrolyte panel Terrance Munoz Work Phone: Start: 09-30-2021 Urnls dip stick/tablet reagent auto microscopy Terrance Smalls PA-C Work Phone: Start: 09-30-2021 Glucose blood reagent strip Maycol Gomez MD Work Phone: Start: 09-30-2021 Blood gases any combination ph pco2 po2 co2 hco3 Terrance Smalls PA-C Work Phone: Start: 09-30-2021 End: 09-30-2021 Basic metabolic panel calcium total Terrance Smalls PA-C Work Phone: Start: 09-30-2021 Glucose blood reagent strip Maycol Gomez MD Work Phone: Start: 09-30-2021 Cul prsmptv pthgnc organism scrn w/colony estimj Terrance Smalls PA-C Work Phone: Start: 09-30-2021 Glucose blood reagent strip Maycol Gomez MD Work Phone: Start: 09-30-2021 Hemoglobin glycosylated a1c Maycol Gomez MD Work Phone: Start: 09-30-2021 BASIC METABOLIC PANEL W/ REFLEX TO MG FOR LOW K Corina R Bedoya [employer]MED SECURITY GUARD - PRODUCTION COUNTER Work Phone: Start: 09-30-2021 SPECIMEN REJECTION Mi Giron Sra, MD Work Phone: Start: 09-29-2021 Glucose blood reagent strip Maycol Gomez MD Work Phone: Start: 09-29-2021 Glucose blood reagent strip Maycol Gomez MD Work Phone: Start: 09-29-2021 Glucose blood reagent strip Maycol Gomez MD Work Phone: Start: 09-29-2021 Glucose blood reagent strip Jamal Levine MD Work Phone: Start: 09-29-2021 Blood gases any combination ph pco2 po2 co2 hco3 Jamal Levine MD Work Phone: Start: 09-29-2021 End: 09-29-2021 Basic metabolic panel calcium total Lesleyjorgito Bree Ahuja MD Work Phone: Start: 09-29-2021 SPECIMEN REJECTION Jose Casarez MD Work Phone: Start: 09-29-2021 Basic metabolic panel calcium total Lesleytigistlongkarley Bree Ahuja MD Work Phone: Start: 09-29-2021 Basic metabolic panel calcium total Lesleyjorgito Bree Ahuja MD Work Phone: Start: 09-29-2021 Glucose blood reagent strip Jamal Levine MD Work Phone: Start: 09-28-2021 Glucose blood reagent strip Jamal Levine MD Work Phone: Start: 09-28-2021 End: 09-28-2021 Basic metabolic panel calcium total Lesleyandshanon Bree Ahuja MD Work Phone: Start: 09-28-2021 End: 09-28-2021 Glucose blood reagent strip Jamal Levine MD Work Phone: Start: 09-28-2021 End: 09-28-2021 Basic metabolic panel calcium total Lesleyjorgito Bree Ahuja MD Work Phone: Start: 09-28-2021 End: 09-28-2021 Glucose blood reagent strip Jamal Levine MD Work Phone: Start: 09-28-2021 Glucose blood reagent strip Jamal Levine MD Work Phone: Start: 09-28-2021 End: 09-28-2021 Basic metabolic panel calcium total Mi Giron Sra, MD Work Phone: Start: 09-28-2021 End: 09-28-2021 Glucose blood reagent strip Jamal Levine MD Work Phone: Start: 09-28-2021 End: 09-28-2021 Culture bacterial quanttative colony count urine Mi Giron Sra, MD Work Phone: Start: 09-28-2021 Urnls dip stick/tablet rgnt auto w/o microscopy Mi Giron Sra, MD Work Phone: Start: 09-28-2021 Blood gases any combination ph pco2 po2 co2 hco3 Tomer Lara MD Start: 09-28-2021 Radiologic exam chest single view Mi Giron Sra, MD Work Phone: Start: 09-28-2021 End: 09-28-2021 Basic metabolic panel calcium total Mi Giron Sra, MD Work Phone: Start: 09-28-2021 CULTURE, BLOOD 1 Mi Giron Sra, MD Work Phone: Start: 09-28-2021 IMMATURE PLATELET FRACTION Mi Giron Sra, MD Work Phone: Start: 09-28-2021 Culture bacterial blood aerobic w/id isolates Mi Giron Sra, MD Work Phone: History of decompres maria teresa of median nerve Status post carpal tunnel release Barry Snowden PRODUCTION COUNTER Work Phone: History of decompres maria teresa of median nerve Status post carpal tunnel release Barry Snowden PRODUCTION COUNTER Work Phone: History of decompres maria teresa of median nerve Status post carpal tunnel release Barry Snowden PRODUCTION COUNTER Work Phone: Plan of Treatment Date Care Activity Detail Author Start: 04-09-2031 DTaP,Tdap and Td Vaccines (2 - Td or Tdap) DTaP,Tdap and Td Vaccines (2 - Td or Tdap) [facility] Start: 04-09-2031 DTaP/Tdap/Td vaccine (2 - Td or Tdap) DTaP/Tdap/Td vaccine (2 - Td or Tdap) Start: 07-14-2027 Screening for malignant neoplasm of cervix [facility] Start: 08-01-2026 Screening for malignant neoplasm of cervix Pap Smear [facility] Start: 01-21-2026 Glaucoma screening Diabetes: Retinopathy Screening [facility] Start: 07-23-2025 Adult BMI Screening Adult BMI Screening [facility] Start: 07-21-2025 Tobacco Screening Tobacco Screening [facility] Start: 07-18-2025 Adult BMI Screening Adult BMI Screening [facility] Start: 07-18-2025 Tobacco Screening Tobacco Screening [facility] Start: 07-14-2025 Screening for malignant neoplasm of cervix Pap Smear [facility] Start: 06-30-2025 Screening for malignant neoplasm of breast Mammogram [facility] Start: 06-28-2025 Adult BMI Screening Adult BMI Screening [facility] Start: 06-26-2025 Tobacco Screening Tobacco Screening [facility] Start: 06-20-2025 Adult BMI Screening Adult BMI Screening [facility] Start: 06-20-2025 Tobacco Screening Tobacco Screening [facility] Start: 06-13-2025 Adult BMI Screening Adult BMI Screening [facility] Start: 06-13-2025 Tobacco Screening Tobacco Screening [facility] Start: 05-16-2025 Adult BMI Screening Adult BMI Screening [facility] Start: 05-16-2025 Tobacco Screening Tobacco Screening [facility] Start: 02-02-2025 End: 06-13-2025 Pulmonary function test Spirometry (Flow Volume Loop) pre/post short acting bronchodilator w/ DLCO (diffusion study) Pulmonary function test Spirometry (Flow Volume Loop) pre/post short acting bronchodilator w/ DLCO (diffusion study) PFT Routine Moderate persistent asthma without complication Chronic hypoxic respiratory failure (CMS-HCC) Expected: 02/02/2025 (Approximate), Expires: 06/13/2025 [facility] Phone: Comment on above: Expected: 02/02/2025 (Approximate), Expi res: 06/13/2025 Start: 01-19-2025 Hemoglobin A1c measurement Diabetes: Hemoglobin A1C [facility] Start: 11-25-2024 Hemoglobin A1c measurement Diabetes: Hemoglobin A1C [facility] Start: 11-21-2024 Tobacco Screening Tobacco Screening [facility] Start: 11-20-2024 End: 11-20-2024 Clinical Support 11/20/2024 8:00 PM EDT Clinical Support [facility] [address] [place] [phone] Smitha Germain MD [address] [address] [facility] Start: 11-14-2024 Adult BMI Screening Adult BMI Screening [facility] Start: 11-14-2024 Tobacco Screening Tobacco Screening [facility] Start: 11-09-2024 Adult BMI Screening Adult BMI Screening [facility] Start: 11-09-2024 Tobacco Screening Tobacco Screening [facility] Start: 11-07-2024 End: 11-07-2024 Patient encounter procedure 11/07/2024 10:00 AM EST Office Visit [facility] [address] [place] [address] Diaz Betts MD [address] [place] [address] [facility] Start: 10-27-2024 Tobacco Screening Tobacco Screening [facility] Start: 10-18-2024 Adult BMI Screening Adult BMI Screening [facility] Start: 10-02-2024 Urine screening for protein Diabetes: Urine Protein Screening [facility] Start: 08-15-2024 End: 08-15-2024 Patient encounter procedure 08/15/2024 1:30 PM EST Office Visit [facility] [address] [place] [address] Diaz Betts MD [address] [place] [address] [facility] Start: 08-06-2024 End: 08-06-2024 Patient encounter procedure [facility] Comment on above: Arrived Start: 07-25-2024 End: 07-18-2025 Basic metabolic 2000 panel - Serum or Plasma Basic Metabolic Panel Lab Routine Dyspnea on exertion Pulmonary hypertension (CMS-HCC) Expected: 07/25/2024, Expires: 07/18/2025 [facility] Work Phone: Comment on above: Expected: 07/25/2024, Expires: Start: 07-18-2024 End: 07-18-2024 Patient encounter procedure 07/18/2024 11:30 AM EST Office Visit [facility] [address] [place] [phone] Hair See MD [address] [place] [address] [facility] Start: 07-15-2024 End: 07-15-2024 Patient encounter procedure 07/15/2024 10:15 AM EST Office Visit [facility] [address] [facility] [place] [phone] Barry Snowden, PRODUCTION COUNTER [address] [place] [address] [facility] Start: 07-13-2024 Adult BMI Screening Adult BMI Screening [facility] Start: 07-13-2024 Tobacco Screening Tobacco Screening [facility] Start: 07-04-2024 End: 07-04-2024 Clinical Support 07/04/2024 9:00 AM EDT Clinical Support [facility] [address] [place] [phone] [facility] Start: 06-30-2024 Screening for malignant neoplasm of breast Mammogram [facility] Start: 06-26-2024 End: 06-26-2024 Admission to same day surgery center 06/26/2024 8:30 AM EDT - 06/26/2024 9:30 AM EDT Surgery [facility] [address] [place] [address] Nicolás Vallejo MD [address] [place] [address] Cardiac Invasive [facility] Comment on above: Cardiac Invasive Start: 06-26-2024 Subsequent hospital visit by physician 06/26/2024 8:30 AM EDT Hospital Encounter [facility] [address] [place] [address] Nicolás Vallejo MD [address] [place] [address] Pulmonary hypertension ([facility]) [facility] Comment on above: Pulmonary hypertension ([facility]) Start: 06-24-2024 End: 06-24-2024 Patient encounter procedure [facility] Comment on above: Arrived Start: 06-20-2024 End: 06-20-2024 Patient encounter procedure 06/20/2024 8:00 AM EDT Office Visit [facility] [address] [place] [address] Nicolás Vallejo MD [address] [place] [address] Katelyn Recio MD [address] [place] [address] [facility] Start: 06-17-2024 End: 06-17-2024 Patient encounter procedure 06/17/2024 9:00 AM EDT Procedure Visit [facility] Arianna Miller, DO [address] [address] [facility] Start: 06-05-2024 Depression Screening Depression Screening [facility] Start: 05-05-2024 COVID-19 Vaccine ( season) COVID-19 Vaccine ( season) [facility] Start: 05-05-2024 COVID-19 Vaccine ( season) COVID-19 Vaccine () [facility] Start: 05-05-2024 Influenza vaccination [facility] Start: 11-22-2023 End: 11-22-2023 Admission to same day surgery center 11/22/2023 1:30 PM EDT - 11/22/2023 3:15 PM EDT Surgery [facility] [address] [place] [phone] [place] [address] [place] [address], [address] [place] [address] ENDOBRONCHIAL ULTRASOUND BRONCHOSCOPY [facility] Comment on above: ENDOBRONCHIAL ULTRASOUND BRONCHOSCOPY Start: 11-22-2023 End: 11-22-2023 ENDOBRONCHIAL ULTRASOUND BRONCHOSCOPY ENDOBRONCHIAL ULTRASOUND BRONCHOSCOPY LYMPH ADENOPATHY 11/22/2023 1:30 PM EDT [facility] Start: 11-22-2023 Subsequent hospital visit by physician 11/22/2023 1:30 PM EDT Hospital Encounter [facility] [address] [place] [phone] Libby Finley MD [address] [facility], [address] [place] [address] [facility] Start: 11-15-2023 End: 11-15-2023 Admission to establishment 11/15/2023 10:30 AM EDT Support Visit [facility] [address] [place] [address] [facility] On [facility] Start: 11-02-2023 End: 11-02-2023 Patient encounter procedure 11/02/2023 1:30 PM EST Office Visit [facility] [address] [place] [phone] Barry Snowden, [place] [address] [place] [address] [facility] Start: 10-26-2023 End: 10-26-2023 Patient encounter procedure 10/26/2023 10:00 AM EST Appointment [facility] [address] [place] [address] [facility] Start: 10-17-2023 End: 10-17-2023 Patient encounter procedure 10/17/2023 1:30 PM EST [facility] [address] [place] [address] Diaz Betts MD [address] [place] [address] [facility] Start: 10-11-2023 End: 10-11-2024 Estrogens, total Estrogens, total Lab Routine Amenorrhea Expected: 10/11/2023 (Approximate), Expires: 10/11/2024 [facility] Comment on above: Expected: 10/11/2023 (Approximate), Expi res: 10/11/2024 Start: 10-11-2023 End: 10-11-2024 US for US PELVIS-TRANSVAG IF INDICATED Imaging Routine Amenorrhea Expected: 10/11/2023 (Approximate), Expires: 10/11/2024 [facility] Comment on above: Expected: 10/11/2023 (Approximate), Expi res: 10/11/2024 Start: 10-10-2023 End: 10-10-2023 Patient encounter procedure 10/10/2023 8:00 AM EST Office Visit [facility] [address] [place] [phone] Feliz Benz, DO [address] [facility] [place] [address] Amenorrhea [facility] Comment on above: Amenorrhea Start: 06-07-2023 Urine screening for protein Urine Microalbumin [facility] Start: 06-03-2023 Hemoglobin A1c measurement Diabetes: Hemoglobin A1C [facility] Start: 05-05-2023 COVID-19 Vaccine ( season) COVID-19 Vaccine () [facility] Start: 05-05-2023 Influenza vaccination [facility] Start: 12-29-2021 Hemoglobin A1c measurement A1C test (Diabetic or Prediabetic) Start: 11-29-2021 COVID-19 Vaccine (3 - Booster for Pfizer series) COVID-19 Vaccine (3 - Booster for Pfizer series) Start: 05-05-2021 Influenza vaccination Flu vaccine (#1) Start: 2009 Screening for malignant neoplasm of cervix Start: 2000 Screening for malignant neoplasm of cervix Pap smear Start: 1998 Hepatitis B vaccine (1 of 3 - Risk 3-dose series) Hepatitis B vaccine (1 of 3 - Risk 3-dose series) Start: 1997 Adult BMI Follow Up Plan Adult BMI Follow Up Plan [facility] Start: 1997 Diabetic foot examination Diabetic Foot Exam [facility] Start: 1997 Diabetic retinal exam Diabetic retinal exam Start: 1997 Urine screening for protein Diabetic microalbuminuria test Start: 1994 HIV screening HIV screen Start: 1991 Depression Screen Depression Screen Start: 1989 Diabetic foot examination Diabetic foot exam Start: 1989 Glaucoma screening Diabetes: Retinopathy Screening [facility] Start: 1989 Lipid panel Lipid screen Start: 1985 Pneumococcal 0-64 years Vaccine (1 of 2 - PPSV23) Pneumococcal 0-64 years Vaccine (1 of 2 - PPSV23) [employer] Start: 1979 Glaucoma screening Diabetic Ophthalmology Exam [facility] Start: 1979 Hepatitis C screening Hepatitis C screen [facility] Start: 1979 Screening for malignant neoplasm of colon [employer] CBC W Auto Different ial panel - Blood CBC auto differential Lab Routine Daily until discontinued starting 09/29/2021, 4 completed [employer] Phone: Comment on above: Daily until discontinued starting 2021, 4 completed End: 11-09-2024 Coccidiomyces Coccidiomyces Lab Routine Mediastinal lymphadenopathy Pulmonary nodule 1 Occurrences starting 11/10/2023 until 11/09/2024 [facility] Comment on above: 1 Occurrences starting 11/10/2023 until 11/09/2024 Culture, Anaerobic a nd Aerobic Culture, Anaerobic and Aerobic Microbiology [employer] Label Print 09/30/2021 9:50 AM EST [employer] Phone: Follicle stimulating hormone Follicle stimulating hormone Lab Routine Amenorrhea Ordered: 10/11/2023 [employer] Work Phone: Comment on above: Ordered: 10/11/2023 End: 11-09-2024 Fungitell Assay for (1,3)-B-D-Glucan Fungitell Assay for (1,3)-B-D-Glucan Lab Routine Mediastinal lymphadenopathy Pulmonary nodule 1 Occurrences starting 11/10/2023 until 11/09/2024 [employer] Phone: Comment on above: 1 Occurrences starting 11/10/2023 until 11/09/2024 Glucose [Mass/volume ] in Serum or Plasma POCT glucose Point of Care Testing Routine 4X Daily (AC & HS) until discontinued starting 09/29/2021 [employer] Phone: Comment on above: 4X Daily (AC & HS) until discontinued st arting 09/29/2021 End: 11-09-2024 Histoplasma antigen, serum Histoplasma antigen, serum Lab Routine Mediastinal lymphadenopathy Pulmonary nodule 1 Occurrences starting 11/10/2023 until 11/09/2024 [facility] Comment on above: 1 Occurrences starting 11/10/2023 until 11/09/2024 End: 11-09-2024 Histoplasma antigen, urine Histoplasma antigen, urine Microbiology Routine Mediastinal lymphadenopathy Pulmonary nodule 1 Occurrences starting 11/10/2023 until 11/09/2024 [facility] Comment on above: 1 Occurrences starting 11/10/2023 until 11/09/2024 End: 11-09-2024 Hyperssens pneu IGG Hyperssens pneu IGG Lab Routine Mediastinal lymphadenopathy Pulmonary nodule 1 Occurrences starting 11/10/2023 until 11/09/2024 [facility] Comment on above: 1 Occurrences starting 11/10/2023 until 11/09/2024 End: 10-01-2021 Initiate RT Protocol Initiate RT Protocol Respiratory Care Routine Continuous until discontinued starting 10/01/2021 [employer] Phone: Comment on above: Continuous until discontinued starting 0 10/01/2021 LH LH Lab Routine A menorrhea Ordered: 10/11/2023 [facility] Comment on above: Ordered: 10/11/2023 Oxygen therapy [[facility] Data Set] Initiate Oxygen Therapy Protocol Respiratory Care Routine Daily until discontinued starting 09/28/2021 [employer] Phone: Comment on above: Daily until discontinued starting 2021 End: 10-01-2021 PERIPHERAL BLOOD SMEAR, PATH REVIEW [employer] Phone: Comment on above: One Time for 1 Occurrences starting 09/05 until 10/01/2021 Phosphate [Mass/volu me] in Serum or Plasma Phosphorus Lab STAT Tomorrow AM until discontinued starting 10/01/2021, 3 completed [employer] Phone: Comment on above: Tomorrow AM until discontinued starting 10/01/2021, 3 completed End: 09-29-2021 PREVIOUS SPECIMEN [employer] Phone: Comment on above: Once for 1 Occurrences starting 09/29/19 until 09/29/2021 End: 09-30-2021 PREVIOUS SPECIMEN [employer] Phone: Comment on above: Once for 1 Occurrences starting 09/30/19 until 09/30/2021 Progesterone Progesterone Lab Routine Amenorrhea Ordered: 10/11/2023 [facility] Comment on above: Ordered: 10/11/2023 Respiratory care evaluation only Respiratory care evaluation only Respiratory Care Routine As Needed until discontinued starting 10/01/2021 [employer] Phone: Comment on above: As Needed until discontinued starting End: 09-28-2021 Wound ostomy eval and treat Wound ostomy eval and treat Wound Ostomy Routine One Time for 1 Occurrences starting 09/28/2021 until 09/28/2021 [employer] Phone: Comment on above: One Time for 1 Occurrences starting 09/05 until 09/28/2021 Immunizations Immunization Date Immunization Notes Care Provider Fa cility 12-18-2023 Pneumococcal Conjuga te PCV 20 Diaz Betts MD Work Phone: [facility] 04-09-2021 tetanus toxoid, redu ajay diphtheria toxoid, and acellular pertussis vaccine, adsorbed [facility] 06-15-2020 influenza, injectabl e, quadrivalent, preservative free Barry Snowden NP Work Phone: [facility] 06-15-2020 influenza virus vaccine, unspecified formulation [facility] 05-20-2019 influenza, injectabl e, quadrivalent, preservative free Diaz Betts MD Work Phone: [facility] 04-22-2017 influenza, injectabl e, quadrivalent, preservative free Diaz Betts MD Work Phone: [facility] 05-13-2016 influenza, injectabl e, quadrivalent, preservative free Diaz Betts MD Work Phone: [facility] 05-28-2015 influenza, injectabl e, quadrivalent, preservative free Diaz Betts MD Work Phone: [facility] 10-06-2009 tetanus toxoid, adsorbed Diaz Betts MD Work Phone: [facility] Payers Date Payer Category Payer Medicaid [id number] 1980 Unknown [id number] 2.16.8 40.1.721268.3.579.2.175 1979 Unknown [id number] 2.16.84 0.1.770836.3.579.2.593 1979 Unknown [id number] 2.16.84 0.1.403887.3.579.2.593 1979 Unknown [id number] 2.16.84 0.1.750100.3.579.2.593 1979 Unknown [id number] 2.16.84 0.1.941907.3.579.2.593 1979 Unknown [id number] 2.16.84 0.1.708480.3.579.2.593 1979 Unknown [id number] 2.16.84 0.1.994183.3.579.2.593 1979 Unknown [id number] 2.16.84 0.1.142705.3.579.2.593 1979 Unknown [id number] 2.16.8 40.1.486208.3.579.2.6 1979 Unknown [id number] 2.16.8 40.1.642140.3.579.2.6 1979 Unknown [id number] 2.16.8 40.1.709979.3.579.2.1285 1979 Unknown [id number] 2.16.8 40.1.536233.3.579.2.1285 1979 Unknown [id number] 2.16.8 40.1.130353.3.579.2.1285 1979 Unknown [id number] 2.16.8 40.1.562730.3.579.2.1285 1979 Unknown [id number] 2.16.8 40.1.397540.3.579.2.1285 1979 Unknown [id number] 2.16.8 40.1.405198.3.579.2.6 1979 Unknown [id number] 2.16.8 40.1.630320.3.579.2.1285 1979 Unknown [id number] 2.16.8 40.1.499547.3.579.2.1285 1979 Unknown [id number] 2.16.8 40.1.147297.3.579.2.1285 1979 Unknown [id number] 2.16.8 40.1.334333.3.579.2.1285 1979 Unknown [id number] 2.16.8 40.1.507965.3.579.2.1285 1979 Unknown [id number] 2.16.84 0.1.797216.3.579.2.1258 1979 Unknown [id number] 2.16.84 0.1.879762.3.579.2.1258 1979 Unknown [id number] 2.16.84 0.1.286937.3.579.2.1258 1979 Unknown [id number] 2.16.84 0.1.320190.3.579.2.1258 1979 Unknown [id number] 2.16.84 0.1.161150.3.579.2.1258 1979 Unknown [id number] 2.16.84 0.1.668427.3.579.2.1258 1979 Unknown [id number] 2.16.84 0.1.653169.3.579.2.1258 1979 Unknown [id number] 2.16.84 0.1.389237.3.579.2.1258 1979 Unknown [id number] 2.16.84 0.1.769724.3.579.2.1258 1979 Unknown [id number] 2.16.84 0.1.891969.3.579.2.1258 1979 Unknown [id number] 2.16.84 0.1.406598.3.579.2.1258 1979 Unknown [id number] 2.16.84 0.1.490246.3.579.2.1258 1979 Unknown [id number] 2.16.84 0.1.796266.3.579.2.1258 1979 Unknown [id number] 2.16.84 0.1.327261.3.579.2.1258 1979 Unknown [id number] 2.16.84 0.1.656153.3.579.2.1258 1979 Unknown [id number] 2.16.84 0.1.198384.3.579.2.1258 1979 Unknown [id number] 2.16.84 0.1.280140.3.579.2.1258 1979 Unknown [id number] 2.16.840 .1.608699.3.579.2.1258 1979 Unknown [id number] 2.16.840 .1.355623.3.579.2.1258 1979 Unknown [id number] 2.16.840 .1.531134.3.579.2.1258 1979 Unknown [id number] 2.16.8 40.1.510168.3.579.2. 1979 Unknown [id number] 2.16.8 40.1.691409.3.579.2. 1979 Unknown [id number] 2.16.8 40.1.362603.3.579.2. 1979 Unknown [id number] 2.16.8 40.1.857175.3.579.2. 1979 Unknown [id number] 2.16.8 40.1.559483.3.579.2. 1979 Unknown [id number] 2.16.8 40.1.568417.3.579.2.1285 1979 Unknown [id number] 2.16.8 40.1.093841.3.579.2.1285 1979 Unknown [id number] 2.16.8 40.1.867980.3.579.2.1285 1979 Unknown [id number] 2.16.8 40.1.557275.3.579.2.1285 1979 Unknown [id number] 2.16.8 40.1.626176.3.579.2.1285 1979 Unknown [id number] 2.16.8 40.1.553405.3.579.2.1285 1979 Unknown [id number] 2.16.8 40.1.803419.3.579.2.1285 1979 Unknown [id number] 2.16.8 40.1.713373.3.579.2.1285 1979 Unknown [id number] 2.16.8 40.1.114280.3.579.2.1285 1979 Unknown [id number] 2.16.8 40.1.510613.3.579.2.1285 1979 Unknown [id number] 2.16.8 40.1.097950.3.579.2.1285 1979 Unknown [id number] 2.16.8 40.1.974909.3.579.2.1285 1979 Unknown [id number] 2.16.8 40.1.534376.3.579.2.1285 1979 Unknown [id number] 2.16.8 40.1.723382.3.579.2.1285 1979 Unknown [id number] 2.16.8 40.1.238947.3.579.2.1285 1979 Unknown [id number] 2.16.8 40.1.681351.3.579.2.1285 1979 Unknown [id number] 2.16.8 40.1.091489.3.579.2.1286 1979 Unknown [id number] 2.16.8 40.1.585170.3.579.2.1286 1979 Unknown [id number] 2.16.8 40.1.581794.3.579.2.1286 1979 Unknown [id number] 2.16.8 40.1.699534.3.579.2.1286 1979 Unknown [id number] 2.16.8 40.1.828230.3.579.2.1286 1979 Unknown [id number] 2.16.8 40.1.841759.3.579.2.1286 1979 Unknown [id number] 2.16.8 40.1.229002.3.579.2.1286 1979 Unknown [id number] 2.16.8 40.1.889871.3.579.2.1286 1959 Medicaid [id number] 1. 2.840.054543.1.13.239.2.7.3.438815.315 Social History Date Type Detail Facility Start: 09-29-2021 End: 08-10-2023 Tobacco smoking status CTIS Never smoked tobacco [employer] Phone: Start: 09-29-2021 End: 08-10-2023 Tobacco use and exposure Smokeless tobacco non-user [employer] Phone: Start: 09-29-2021 End: 08-06-2024 Alcohol intake Lifetime non-drinker (finding) [employer] Phone: Start: 1980 Sex Assigned At Not on file [employer] Phone: Start: 07-13-2023 End: 07-21-2024 Alcohol intake Current drinker of alcohol (finding) [facility] [employer] [facility] Start: 06-05-2023 End: 08-06-2024 History of Social function [facility] Start: 06-05-2023 End: 08-06-2024 Social connection and isolation panel [facility] Do you belong to any clubs or organizations such as uatsdin groups, unions, fraternal or athletic groups, or school groups? No [facility] Are you now , , , , never or living with a partner? [facility] How often to you hav e a drink containing alcohol? Never [facility] How many standard dr inks containing alcohol do you have on a typical day? Patient does not drink [facility] Do you feel stress - tense, restless, nervous, or anxious, or unable to sleep at night because your mind is troubled all the time - these days [OSQ] Only a little [facility] Start: 03-01-2019 Alcohol Comment occasionally-once a month [facility] [employer] [facility] Start: 03-01-2023 Alcohol Comment Caffeine: 1-2 cups/day , mountain dew occasionally [facility] Has the [employer], or [employer] threatened to shut off services in your home in past 12Mo Yes [facility] [employer] [facility] Start: 04-09-2015 Sex Female (finding) [facility] Medical Equipment Procedure Code Equipment Code Equipment Origin al Text Equipment Identifier Dates USE ONE PEN NEED LE TO INJECT MEDICATION SIX TIMES A DAY [id number] Start: 06-22-2023 USE ONE PEN NEED LE TO INJECT MEDICATION SIX TIMES A DAY [id number] Start: 01-18-2024 Goals Date Patient Goal Desired Activity /State Personal health goal Comment on above: Formatting of this n ote might be different from the original. Evaluation of progress towards goal: Home with family support. Personal health goal Comment on above: Formatting of this n ote might be different from the original. Evaluation of progress towards goal: In progress: Home with oxygen tomorrow. DC to home with oxygen today. DOC Taylor, 12/22/2023, 10:51 AM Personal health goal Comment on above: Formatting of this n ote might be different from the original. Evaluation of progress towards goal: Patient plans to return home with self care. Clinical Notes 09-29-2021 to 08-06-2024 Diaz Btets MD - 08/06/2024 12:07 PM Lucrecia Betts MD - 08/06/2024 12:07 PM Lucrecia Betts MD - 08/06/2024 12:07 PM Lucrecia Betts MD - 08/06/2024 12:07 PM ESTDischarge Instr - [place] Note Date & Type Note Facility 08-06-2024 History of Presen t illness Narrative Associated Problem(s): Type 2 diabetes mellitus with hyperglycemia, with long-term current use of insulin (CMS/HCC) BS elevated with steroids and monitor. A1C improved but still elevated and increase mounjaro. Associated Problem(s): Pulmonary hypertension (CMS/HCC) Continued SOB and follow with specialists. Associated Problem(s): Chronic hypoxic respiratory failure (CMS/HCC) On home oxygen and follow with pulmonology. Associated Problem(s): Chronic heart failure with preserved ejection fraction (HFpEF) ([facility]) No change with lasix and increase to 40 mg. Images from the original note were not included. Subjective Patient ID: Carissa Lozada is a 44 y.o. female who presents for Follow-up ([facility]UP). ER follow up from 07/21 for chest pain and SOB. On oxygen and following with pulmonology. Recently had heart cath that showed mild pulmonary HTN and fluid overload. Started lasix 20 mg but no change. ER gave steroids and repeat BMP showed glucose 577. Continues to have SOB with exertion. Mild cough. Edema unchanged and swelling in legs. Not checking BS often but A1C 9.6. Tries to stick to ADA diet and limit carbs. Denies signs of elevated BS such as polyuria, polyphagia or polydipsia. Review of Systems Respiratory: Negative for cough, shortness of breath and wheezing. Cardiovascular: Negative for chest pain and palpitations. Gastrointestinal: Negative for abdominal pain, diarrhea, nausea and vomiting. Genitourinary: Negative for dysuria. Objective Physical Exam Constitutional: General: She is not in acute distress. Appearance: Normal appearance. HENT: Head: Normocephalic. Right Ear: Tympanic membrane normal. Left Ear: Tympanic membrane normal. Eyes: Extraocular Movements: Extraocular movements intact. Pupils: Pupils are equal, round, and reactive to light. Cardiovascular: Rate and Rhythm: Normal rate and regular rhythm. Heart sounds: No murmur heard. No friction rub. No gallop. Pulmonary: Effort: Pulmonary effort is normal. Breath sounds: Normal breath sounds. No wheezing, rhonchi or rales. Abdominal: General: Bowel sounds are normal. There is no distension. Palpations: Abdomen is soft. Tenderness: There is no abdominal tenderness. There is no guarding or rebound. Musculoskeletal: Cervical back: Neck supple. Right lower leg: No edema. Left lower leg: No edema. Neurological: Mental Status: She is alert. Assessment/Plan Problem List Items Addressed This Visit Chronic heart failure with preserved ejection fraction (HFpEF) (CMS/HCC) No change with lasix and increase to 40 mg. Relevant Medications furosemide (Lasix) 40 MG tablet Type 2 diabetes mellitus with hyperglycemia, with long-term current use of insulin (CMS/HCC) BS elevated with steroids and monitor. A1C improved but still elevated and increase mounjaro. Relevant Medications Tirzepatide (Mounjaro) 7.5 MG/0.5ML solution auto-injector Chronic hypoxic respiratory failure (CMS/HCC) - Primary On home oxygen and follow with pulmonology. Pulmonary hypertension (CMS/HCC) Continued SOB and follow with specialists. Other Visit Diagnoses Colon cancer screening Relevant Orders Ambulatory referral to General Surgery documented in this encounter [facility] 07-30-2024 History of Presen t illness Narrative Received critical lab result from blood work drawn today of a glucose of 577. Spoke with patient on the phone. She states her blood sugars have been running high all day. She was instructed to call her PCP for further instructions. She is on insulin. DUSTIN Rausch 07/30/24 1849 documented in this encounter [facility] 07-30-2024 Miscellaneous Notes Contract: ROBBY Markham calling from [facility] lab second page for critical lab on patient. Please call Shahrzad @ [phone]. Sent secure chat to Cassy Davila documented in this encounter [facility] 07-30-2024 Telephone encounter Note Contract: [facility] for critical lab on patient. Please call Shahrzad @ [phone]. Sent secure chat to Cassy Gómezluis miguel [facility] 07-30-2024 Miscellaneous Notes Contract: ROBBY See for Critical Lab Secure Chat sent to Cassy Davila CNP Routing sent documented in this encounter [facility] 07-30-2024 Telephone encounter Note Contract: ROBBY See for Critical Lab [facility] 07-30-2024 Telephone encounter Note Secure Chat sent to Cassydesire Davila CNP Routing sent [facility] 07-18-2024 History of Presen t illness Narrative Carissa Lozada Date of visit: 07/18/2024 Date of : 1980 Age: 43 y.o. Patient Active Problem List Diagnosis Hyperglycemia Chest pain, unspecified Type 2 diabetes mellitus with hyperglycemia, with long-term current use of insulin ([facility]) Mild developmental delay Obstructive sleep apnea syndrome Hyperlipidemia associated with type 2 diabetes mellitus ([facility]) Abnormal ECG during exercise stress test Mediastinal lymphadenopathy Acute cystitis without hematuria Pulmonary nodule Dyspnea on exertion Moderate persistent asthma without complication Chronic hypoxic respiratory failure ([facility]) BMI 45.0-49.9, adult ([facility]) Pulmonary hypertension ([facility]) Allergies Allergen Reactions Sulfamethoxazole-Trimethoprim Hives, Itching and Other (See Comments) Current Outpatient Medications Medication Sig Dispense Refill albuterol (PROVENTIL HFA;VENTOLIN HFA) 90 mcg/actuation inhaler Inhale 2 puffs every 6 (six) hours as needed for wheezing or shortness of breath. 18 g 0 atorvastatin (LIPITOR) 40 mg tablet Take 1 tablet (40 mg total) by mouth in the morning. buPROPion XL (WELLBUTRIN XL) 300 mg 24 hr tablet Take 1 tablet (300 mg total) by mouth every morning. cholecalciferol, vitamin D3, 400 units tablet Take 1 tablet (400 Units total) by mouth in the morning. cyclobenzaprine (FLEXERIL) 10 mg tablet Take 1 tablet (10 mg total) by mouth 3 (three) times a day as needed for muscle spasms. 30 tablet 0 dicyclomine (BENTYL) 20 mg tablet Take 1 tablet (20 mg total) by mouth every 6 (six) hours. iuxdlsrhfmx-fsfbembjc-bznvkqlf (TRELEGY ELLIPTA) 200-62.5-25 mcg blister with device Inhale 1 puff in the morning. 60 each 11 furosemide (LASIX) 40 mg tablet Take 1 tablet (40 mg total) by mouth daily as needed. Has not been taking med insulin aspart U-100 (NovoLOG) 100 unit/mL injection Inject 0.07 mL (7 Units total) under the skin in the morning and 0.07 mL (7 Units total) at noon and 0.07 mL (7 Units total) in the evening. Inject before meals. 7 units this am. insulin glargine (LANTUS) 100 unit/mL injection Inject 0.15 mL (15 Units total) under the skin in the morning. lamoTRIgine (LaMICtal) 200 mg tablet Take 1 tablet (200 mg total) by mouth in the morning. Indications: bipolar depression. lisinopriL (PRINIVIL,ZESTRIL) 2.5 mg tablet take 1 tablet by mouth every morning 30 tablet 2 MOUNJARO 2.5 mg/0.5 mL pen injector Inject 2.5 mg under the skin once a week. naproxen (NAPROSYN) 500 mg tablet Take 1 tablet (500 mg total) by mouth in the morning and 1 tablet (500 mg total) in the evening. Take with meals. 30 tablet 0 pantoprazole (PROTONIX) 40 mg EC tablet Take 1 tablet (40 mg total) by mouth every morning before breakfast. pioglitazone (ACTOS) 45 mg tablet Take 1 tablet (45 mg total) by mouth in the morning. prazosin (MINIPRESS) 2 mg capsule Take 1 capsule (2 mg total) by mouth nightly. SEMGLEE,INSULIN GLARG-YFGN,PEN 100 unit/mL (3 mL) insulin pen Inject into the appropriate muscle. sertraline (ZOLOFT) 100 mg tablet Take 1 tablet (100 mg total) by mouth in the morning. topiramate (TOPAMAX) 25 mg capsule Take 1 capsule (25 mg total) by mouth in the morning and 1 capsule (25 mg total) before bedtime. No current facility-administered medications for this visit. Facility-Administered Medications Ordered in Other Visits Medication Dose Route Frequency Provider Last Rate Last Admin sodium chloride 0.9 % flush 10 mL 10 mL intravenous GRAZYNA Pantoja MD 10 mL at 10/20/23 0900 Chief Complaint Patient presents with Follow-up EST PT F/U CATH DONE L/S LLD SCHED W/PT History of Present Illness 43-year-old female presents to cardiology clinic today for follow-up. She did have a recent right heart catheterization done outpatient which we reviewed today. She presents to clinic wearing oxygen. She was currently on 3 L. She wears 3 L oxygen 247. She has significant dyspnea with minimal exertion. No palpitations. No lightheadedness or dizziness. Past Medical History: Diagnosis Date Anxiety Deep vein thrombosis ([facility]) Dental disease no teeth Depression Diabetes mellitus type I ([facility]) Elevated cholesterol GERD (gastroesophageal reflux disease) Hyperlipidemia Hypertension Lymphadenopathy 2023 MR (mental retardation) Obesity Panic disorder Visual impairment No data recorded No data recorded No data recorded Past Surgical History: Procedure Laterality Date Cardiac Invasive N/A 06/26/2024 Performed by Harinder Estrella MD at [facility] CHOLECYSTECTOMY COLONOSCOPY 2021 ENDOBRONCHIAL ULTRASOUND BRONCHOSCOPY N/A 11/22/2023 Performed by Libby Finley MD at [facility] Right heart cath N/A 06/26/2024 Performed by Harinder Estrella MD at [facility] TONSILLECTOMY TUBAL LIGATION Bilateral 2017 Family History Problem Relation Age of Onset Diabetes Mother Cancer Father Anesthesia problems Neg Hx Social History Socioeconomic History Marital status: Spouse name: Not on file Number of children: Not on file Years of education: Not on file Highest education level: Not on file Occupational History Not on file Tobacco Use Smoking status: Never Smokeless tobacco: Never Vaping Use Vaping status: Never Used Substance and Sexual Activity Alcohol use: Yes Comment: occasionally-once a month Drug use: Never Sexual activity: Defer control/protection: None Other Topics Concern Caffeine Use Yes Social History Narrative Not on file Social Drivers of Health Financial Resource Strain: Low Risk (12/20/2023) Overall Financial Resource Strain (CARDIA) Difficulty of Paying Living Expenses: Not hard at all Food Insecurity: No Food Insecurity (07/18/2024) Hunger Screening Food Insecurity - Worry: Never True Food Insecurity - Inability: Never True Transportation Needs: No Transportation Needs (12/20/2023) PRAPARE - Transportation Lack of Transportation (Medical): No Lack of Transportation (Non-Medical): No Physical Activity: Insufficiently Active (12/20/2023) Exercise Vital Sign Days of Exercise per Week: 3 days Minutes of Exercise per Session: 10 min Stress: No Stress Concern Present (12/20/2023) [employer] - Occupational Stress Questionnaire Feeling of Stress : Only a little Social Connections: Moderately Isolated (12/20/2023) Social Connection and Isolation Panel [NHANES] Frequency of Communication with Friends and Family: More than three times a week Frequency of Social Gatherings with Friends and Family: More than three times a week Attends Congregation Services: Never Active Member of Clubs or Organizations: No Attends Club or Organization Meetings: Never Marital Status: Interpersonal Safety: Not At Risk (12/20/2023) Humiliation, Afraid, Rape, and Kick questionnaire Fear of Current or Ex-Partner: No Emotionally Abused: No Physically Abused: No Sexually Abused: No Housing Instability: Low Risk (12/20/2023) Housing Instability Housing Instability: No Review of Systems Review of Systems Constitutional: Negative. HENT: Negative. Eyes: Negative. Cardiovascular: Negative. Respiratory: Negative. Endocrine: Negative. Hematologic/Lymphatic: Negative. Skin: Negative. Musculoskeletal: Negative. Gastrointestinal: Negative. Genitourinary: Negative. Neurological: Negative. Psychiatric/Behavioral: Negative. Allergic/Immunologic: Negative. Vascular: Negative. CARDIOVASCULAR: Please review HPI. Physical Examination General appearance: Alert, oriented and cooperative. In no acute distress. Skin: Warm and dry to touch. Head: Normocephalic, without obvious abnormality, atraumatic. Ears, Nose, Mouth, Throat: Throat clear without erythema or exudate. Dentition intact. Eyes: Conjunctivae unremarkable, EOM intact. Neck: No JVD, No carotid bruit. Neck supple, trachea midline. Respiratory: Clear to auscultation bilaterally, no use of accessory muscles. Cardiovascular: RRR with normal S1 and S2 with no murmurs. Gastrointestinal: Soft, non-tender. Bowel sounds normal. Musculoskeletal: + peripheral edema. Neurologic: Oriented to time, person and place, affect appropriate. No focal/major motor defects noted. Psychiatric: Appropriate mood, memory and judgement. VITAL SIGNS: BP (!) 128/94 (BP Site: Left Arm, BP Postition: Sitting) Pulse 90 Ht 154.9 cm (5' 1 ) Wt 106.1 kg (233 lb 12.8 oz) SpO2 99% BMI 44.18 kg/m No orders of the defined types were placed in this encounter. There are no discontinued medications. IMPRESSIONS/PLAN 1. Dyspnea on exertion 2. Pulmonary hypertension ([facility] Assessment: Chronic dyspnea on exertion Pulmonary hypertension; RHC 06/26/2024 Normal coronary arteries by coronary CTA 08/08/2023 (calcium score of 0) Hyperlipidemia Diabetes mellitus type 2, most recent A1C 12.9% Chronic hypoxic respiratory failure on home O2, mostly 3 L COPD Developmental delay RHC 06/26/2024: RA 11, RV 50/8, PA 46/23 (33), PCWP 15, Jane/CI 8.85/2.99, tdCO/CI 7.27/3.71, TPG 18, PVR 2.5 (based on td CO) Plan: We reviewed her most recent right heart catheterization in detail. We discussed that she does have mild pulmonary hypertension. Her PA pressure was 46/23 with a mean of 33. Her wedge pressure that time was 15 mmHg. She was transpulmonary gradient of 18. Her PVR was 2.5 based on her thermodilution cardiac output. We discussed that she has mild pulmonary hypertension. She was mildly volume overloaded on exam. Recent wedge pressure 15 mmHg. Recommend starting Lasix 20 mg daily. She was previously on Lasix p.r.n. but does not take it very often. Check BMP in 1 week. Briefly discussed different medical therapies for pulmonary hypertension. Poorly controlled diabetes. Recently started on tirzepatide. Would have a low threshold to starting SGLT2 inhibitor. Will see how she does with Lasix but will consider adding SGLT2 inhibitor next visit. She has upcoming visit with campus rep. Follow-up with Cardiology in a few months to reassess volume status. TODAYS ORDERS No orders of the defined types were placed in this encounter. FOLLOW UP No follow-ups on file. PCP: DIAZ BETTS MD Referring Physician: Diaz Betts MD [address] [place] [address] documented in this encounter [facility] 07-17-2024 Miscellaneous Notes Called patient to remind them to bring their most current copy of their medication list with them to their appt. Patient verbalizes understanding. documented in this encounter [facility] 07-17-2024 Telephone encounter Note Called patient to remind them to bring their most current copy of their medication list with them to their appt. Patient verbalizes understanding. [facility] 07-15-2024 History of Presen t illness Narrative Images from the original note were not included. HISTORY OF PRESENT ILLNESS: Carissa Lozada is an 43 y.o. @ female. po x 4 weeks s/p RT CTR 06/17/24. Notes pain proximal incision. No pain meds. Denies N/T, swelling. Good ROM. Does not wake at HS. Denies drainage. Incision healing well. REVIEW OF SYSTEMS: General: Denies fever, fatigue or weight loss Lungs: Denies SOB Cardio: Denies chest pain GI: Denies indigestion or abdominal pain Neuro: Denies numbness or tingling, denies new onset paralysis Musculoskeletal: ( see note) PHYSICAL EXAM: Right Hand Exam Right hand exam is normal. Tenderness Right hand tenderness location: EXPECTED POST TRACE OPERATIVE SORENESS AT PROXIMAL INICISION. Range of Motion The patient has normal right wrist ROM. Muscle Strength The patient has normal right wrist strength (MOTORS HAND AND WRIST WITHIN LIMITS OF SURGERY). Other Erythema: absent Scars: present Sensation: normal Pulse: present Comments: Procedures IMAGING: ASSESSMENT: ICD-10-CM 1. Status post carpal tunnel release Z98.890 PLAN: Patient is doing well with only trace soreness over proximal incision. I recommend that patient rub incision to help desensitize nerve. She will follow up as needed. Questions answered in laymen terms at the bedside. The diagnosis, home exercise plan and any ongoing restrictions/ recommendations reviewed. If unable to be reached in office, I recommend evaluation at nearest Emergency Room if any symptoms worsened or new symptoms develop for requiring urgent evaluation. Barry Snowden APRN-HEAVY DUTY CUSTODIAN documented in this encounter [facility] 07-04-2024 History of Presen t illness Narrative Patient presents to [place] office for post cardiac catheterization site evaluation. Patient underwent cardiac catheterization on 06/26/24 via Rt Brachial approach. Catheterization site is clean dry and intact without any signs or symptoms of infection or hematoma. No eccyomosis noted. No pulsatile mass. No bruit. Distal pulses are palpable. Patient will follow up with provider as scheduled on 07/18/24. Patient will call the office sooner with any questions or concerns prior to that appointment. documented in this encounter [facility] 07-03-2024 Miscellaneous Notes Called patient to remind them to bring their most current copy of their medication list with them to their appt. Patient verbalizes understanding. documented in this encounter [facility] 07-03-2024 Telephone encounter Note Called patient to remind them to bring their most current copy of their medication list with them to their appt. Patient verbalizes understanding. [facility] 06-24-2024 History of Presen t illness Narrative Images from the original note were not included. HISTORY OF PRESENT ILLNESS: Carissa Lozada is an 43 y.o. @ female. 1st po x 7 days s/p RT CTR 06/17/24. Soreness in wrist. Taking motrin and TYL. Keeping wrist wrapped. Denies N/T, swelling. Does not wake at HS. Denies drainage. Denies issues with incision. Stitches intact, removed today. Incision healing well. REVIEW OF SYSTEMS: General: Denies fever, fatigue or weight loss Lungs: Denies SOB Cardio: Denies chest pain GI: Denies indigestion or abdominal pain Neuro: Denies numbness or tingling, denies new onset paralysis Musculoskeletal: ( see note) PHYSICAL EXAM: Right Hand Exam Right hand exam is normal. Tenderness The patient is experiencing tenderness in the palmar area (EXPECTED POST OPERATIVE SORENESS AT INICISION.). Range of Motion The patient has normal right wrist ROM. Muscle Strength The patient has normal right wrist strength (MOTORS HAND AND WRIST WITHIN LIMITS OF SURGERY). Other Erythema: absent Scars: present (WELL HEALING, SUTURES PRESENT, REMOVED) Sensation: normal Pulse: present Comments: The operative upper extremity was neurovascularly unchanged. Patient was able to motor fingers and thumb to operative upper extremity in all anatomic planes with 5 out of 5 strength. Radial and ulnar pulses were present and equal bilaterally postoperatively. Sensation to light touch was intact to all dermatomes to operative upper extremity postoperatively. Capillary refill was less than 2 seconds postoperatively to operative upper extremity nailbeds. Compartments were soft to operative upper extremity postoperatively. Procedures IMAGING: ASSESSMENT: ICD-10-CM 1. Status post carpal tunnel release Z98.890 PLAN: 7 days s/p Carpal tunnel release: Plan: I reviewed Post Op care and instructions with the patient. No forceful gripping for 4 weeks from the date of surgery. Work on rom of fingers. use for light activities such as eating, keyboarding, writing and phone. Follow up in 4 weeks for RCK. Questions answered in laymen terms at the bedside. The diagnosis, home exercise plan and any ongoing restrictions/ recommendations reviewed. If unable to be reached in office, I recommend evaluation at nearest Emergency Room if any symptoms worsened or new symptoms develop for requiring urgent evaluation. Barry Snowden APRN-LUCIANO documented in this encounter [facility] 06-20-2024 Miscellaneous Notes Received order from Tracie at the [place] office. Patient scheduled for cath on 06/26/24 at 8:30 am at [facility] with TLM. Notified Tracie. No Covid test required at this time. documented in this encounter [facility] 06-20-2024 Telephone encounter Note Received order from Tracie at the [place] office. Patient scheduled for cath on 06/26/24 at 8:30 am at TT with TLM. Notified Tracie. No Covid test required at this time. [facility] 06-19-2024 Miscellaneous Notes Called patient to remind them to bring their most current copy of their medication list with them to their appt. Patient verbalizes understanding. documented in this encounter [facility] 06-19-2024 Telephone encounter Note Called patient to remind them to bring their most current copy of their medication list with them to their appt. Patient verbalizes understanding. [facility] 06-18-2024 Note [phone] [id number] 06-18-2024 Telephone encounter Note She should have [facility] in [place] [facility] Work Phone: 06-18-2024 Miscellaneous Notes She should have [facility] in [place] Patient called requesting pain meds. States that she is really hurting. documented in this encounter [facility] 06-18-2024 Telephone encounter Note Patient called requesting pain meds. States that she is really hurting. [facility] 06-17-2024 Note [facility] SURGERY Clinical Discharge Summary PERSON INFORMATION Name CARISSA LOZADA Age 43 Years 1980 Sex FEMALE Language Cambodian PCP DIAZ BETTS Marital Status Phone Med Service Ambulatory Surgery Acct# Arrival 06/17/2024 08:13:31 Visit Reason SURGERY - RIGHT CARPAL TUNNEL RELEASE Acuity LOS 171 20:16 Address: [facility] [id number] Comment: PROVIDER INFORMATION VITALS INFORMATION Vital Sign Triage Latest Temp Oral Temp Temporal Temp Intravascular Temp Axillary Temp Rectal 02 Sat 100 % 99 % Respiratory Rate Peripheral Pulse Rate Apical Heart Rate Blood Pressure / 99 mmHg / 78 mmHg Comment: MEDICAL INFORMATION Allergy Info: Bactrim Prescriptions Given: albuterol (Albuterol (Eqv-ProAir HFA) 90 mcg/inh inhalation aerosol) 2 puff(s) Inhale (breathe in) every 4 hours. as needed wheezing. atorvastatin (atorvastatin 40 mg oral tablet) 1 tab(s) Oral (given by mouth) every day. buPROPion (buPROPion 300 mg/24 hours (XL) oral tablet, extended release) 1 tab(s) Oral (given by mouth) every day. cholecalciferol (Vitamin D3 2000 intl units oral tablet) 1 tab(s) Oral (given by mouth) every day. citalopram (citalopram 20 mg oral tablet) 1 tab(s) Oral (given by mouth) every day. dicyclomine (dicyclomine 20 mg oral tablet) 1 tab(s) Oral (given by mouth) every day. Durable Medical Equipment for Prescription (ReactX CRYSTAL SENSOR 14D) APPLY 1 SENSOR TO BACK OF UPPER ARM. REMOVE AND REPLACE EVERY 14 DAYS. fluticasone/umeclidinium/vilant hari (Trelegy Ellipta 200 mcg-62.5 mcg-25 mcg/inh inhalation powder) 1 puff(s) Inhale (breathe in) every day. insulin aspart (Insulin Aspart FlexPen 100 units/mL injectable solution) INJECT SUBCUTANEOUSLY 3 TIMES DAILY IN THE MORNING, NOON, AND IN THE EVENING WITH MEALS PER SLIDING SCALE *30-40 UNITS DAILY*. insulin glargine (Lantus 100 units/mL subcutaneous solution) 15 unit(s) Subcutaneous (under the skin) 2 times per day. lamoTRIgine (lamoTRIgine 200 mg oral tablet, extended release) 1 tab(s) Oral (given by mouth) every day. lisinopril (lisinopril 2.5 mg oral tablet) 1 tab(s) Oral (given by mouth) every day. LORazepam (LORazepam 1 mg oral tablet) 1 tab(s) Oral (given by mouth) 3 times per day as needed for anxiety. nabumetone (nabumetone 500 mg oral tablet) 2 tab(s) Oral (given by mouth) 2 times per day. oxyBUTYnin (oxybutynin 15 mg/24 hr oral tablet, extended release) 1 tab(s) Oral (given by mouth) every day. oxygen 3 lpm(s) as needed shortness of breath or wheezing. pantoprazole (pantoprazole 40 mg oral delayed release tablet) 1 tab(s) Oral (given by mouth) every day. pioglitazone (pioglitazone 45 mg oral tablet) 1 tab(s) Oral (given by mouth) every day. prazosin (prazosin 2 mg oral capsule) 1 tab(s) Oral (given by mouth) every day. sertraline (sertraline 100 mg oral tablet) 1 tab(s) Oral (given by mouth) every day. SUMAtriptan (SUMAtriptan 25 mg oral tablet) 1 tab(s) Oral (given by mouth) every day as needed for migraine headache. may repeat dose after 2 hours up to a maximum of 200 mg in 24 hours. tirzepatide (Mounjaro 2.5 mg/0.5 mL subcutaneous solution) 0.5 Milliliter Subcutaneous (under the skin) Every Monday. Medication List: Medications to Continue That Have Not Changed Other Medications albuterol (Albuterol (Eqv-ProAir HFA) 90 mcg/inh inhalation aerosol) 2 puff(s) Inhale (breathe in) every 4 hours. as needed wheezing. atorvastatin (atorvastatin 40 mg oral tablet) 1 tab(s) Oral (given by mouth) every day. buPROPion (buPROPion 300 mg/24 hours (XL) oral tablet, extended release) 1 tab(s) Oral (given by mouth) every day. cholecalciferol (Vitamin D3 2000 intl units oral tablet) 1 tab(s) Oral (given by mouth) every day. citalopram (citalopram 20 mg oral tablet) 1 tab(s) Oral (given by mouth) every day. dicyclomine (dicyclomine 20 mg oral tablet) 1 tab(s) Oral (given by mouth) every day. Durable Medical Equipment for Prescription (ODECE SENSOR 14D) APPLY 1 SENSOR TO BACK OF UPPER ARM. REMOVE AND REPLACE EVERY 14 DAYS. fluticasone/umeclidinium/vilant hari (Trelegy Ellipta 200 mcg-62.5 mcg-25 mcg/inh inhalation powder) 1 puff(s) Inhale (breathe in) every day. insulin aspart (Insulin Aspart FlexPen 100 units/mL injectable solution) INJECT SUBCUTANEOUSLY 3 TIMES DAILY IN THE MORNING, NOON, AND IN THE EVENING WITH MEALS PER SLIDING SCALE *30-40 UNITS DAILY*. insulin glargine (Lantus 100 units/mL subcutaneous solution) 15 unit(s) Subcutaneous (under the skin) 2 times per day. lamoTRIgine (lamoTRIgine 200 mg oral tablet, extended release) 1 tab(s) Oral (given by mouth) every day. lisinopril (lisinopril 2.5 mg oral tablet) 1 tab(s) Oral (given by mouth) every day. LORazepam (LORazepam 1 mg oral tablet) 1 tab(s) Oral (given by mouth) 3 times per day as needed for anxiety. nabumetone (nabumetone 500 mg oral tablet) 2 tab(s) Oral (given by mouth) 2 times per day. oxyBUTYnin (oxybutynin 15 mg/24 hr (more content not included)... [facility] 06-17-2024 Note Procedure: Decompres maria teresa of median nerve right wrist with release of carpal canal Pre Op Diagnosis: Carpal tunnel syndrome right Post Op Diagnosis: Carpal tunnel syndrome right Surgeon: Dr. Aldo Miller DO Anesthesia: MAC local Indication for Surgery: The [...] incision site with 1% lidocaine with epinephrine. The arm was exsanguinated and tourniquet was inflated to 250 mmHg. A longitudinal incision was made over the [...] the skin was closed with nylon suture. I infiltrated the incision site with half percent Marcaine 3 cc. Adaptic sterile dressings and an Marco A bandage were applied with the thumb in apposition Complications: None [Electronically Signed on: 06/17/2024 10:38 EDT] Arianna Miller DO [Verified on: 06/17/2024 10:38 EDT] Arianna Miller DO [facility] 06-14-2024 Telephone encounter Note Post op pain rx. PDMP reviewed [facility] 06-14-2024 Miscellaneous Notes Post op pain rx. PDMP reviewed documented in this encounter [facility] 06-13-2024 History of Presen t illness Narrative Images from the original note were not included. [facility] Progress Note Patient - Carissa Lozada Age - 43 y.o. - 1980 ASSESSMENT Chronic hypoxic respiratory failure -2L with exertion and 3L with sleep Right upper lobe pulmonary nodule 1.5cm stable x 2 years. -negative on PET. Mild enlarged station 4R LN with SUV 2.8 Isolated severely reduced DLCO on PFT -no evidence of ILD on prior CT imaging Suspected obstructive lung disease with symptomatic improvement on Trelegy Obesity with BMI 43 Developmental delay PLAN Repeat ECHO from May reviewed. Not able to measure right pressures again. Has upcoming appt with cardiology CT chest reviewed. Nodule and LN stable x 2 years and negative on PET. No further repeat imaging indicated Recently established with sleep medicine with sleep study pending. Continue Trelegy given symptomatic benefit. PRN albuterol HFA Repeat PFT data in February and RTC at that time. Encouraged to call prior if any new concerns or changes. SUBJECTIVE Carissa presents for follow-up of her shortness of breath with exertion, chronic hypoxic respiratory failure, asthma, severely impaired DLCO on PFT data. There has been no evidence interstitial lung disease on CT scan of the chest. Echocardiogram was recently obtained and she has upcoming appointment with Cardiology to review for possible cardiac etiology or if any suspicion of underlying pulmonary hypertension contributing to her shortness of breath, hypoxia, impaired gas transfer. Unfortunately echocardiogram has been limited in assessing the RV on last 2 attempts. She is doing well on setting of 3 on her POC with ambulation. She is sleeping on 3 L continuous at night with sleep and has upcoming sleep study evaluation. Nocturnal oxygen may no longer be needed pending sleep study evaluation. No new cough, wheeze. She does feel better on Trelegy. She does note when she misses the Trelegy she has a heaviness and a tight this of her chest and she feels more winded. Continue Trelegy. She has not required any rescue albuterol inhaler. No exacerbations or respiratory infections since last office visit. VITALS BP 136/73 Pulse 93 Ht 154.9 cm (5' 1 ) Wt 104.2 kg (229 lb 12.8 oz) SpO2 100% Comment: Arrived on 3Lnc of O2 BMI 43.42 kg/m Exam General: Alert, oriented, no acute distress, nontoxic Chest: Clear to auscultation bilaterally without any crackles, wheezes, rhonchi. Normal AP diameter. CV: Regular rate regular rhythm Extremities: No edema, erythema, distal cyanosis, clubbing Integumentary: Warm and dry. No rash or lesion Neuro: No lateralizing deficits. No tremors Meds Medications Reviewed. Lab Results ECHO 2023: Interpretation Summary Left Ventricle: Left ventricle appears normal in size. Wall thickness is normal. Systolic function is normal with an ejection fraction of 60-65%. The quantitative EF by 2D Brush biplane is 65%. Right Ventricle: Right ventricular size appears normal. Systolic function is normal. No significant valvular stenosis or regurgitation. Study Information Study Details A complete echo was performed using complete 2D, color flow Doppler and spectral Doppler. Definity study was performed. Overall the study quality was adequate. The study had technical difficulties. The study was difficult due to patient's body habitus, poor acoustic windows and respiration. BP 139/67 Myocardial Findings Left Ventricle Left ventricle appears normal in size. Wall thickness is normal. Systolic function is normal with an ejection fraction of 60-65%. The quantitative EF by 2D Brush biplane is 65%. No obvious regional wall motion abnormalities. Grade I diastolic dysfunction (impaired relaxation) is present. Lateral E' is 7.07 cm/s. Medial E' is 7.29 cm/s. Right Ventricle Right ventricular size appears normal. The right ventricular basal diameter is 32.0 mm. Systolic function is normal. Left Atrium Left atrium volume index is normal. The left atrial volume index is 19.0 mL/m2. Right Atrium Right atrium is normal in size. The right atrial area is 9.9 cm2. Aortic Valve The aortic valve was not well visualized. Probable trileaflet aortic valve. There is no regurgitation or stenosis. Mitral Valve Mitral valve structure is normal. There is trace regurgitation. There is no evidence of mitral valve stenosis. Tricuspid Valve The tricuspid valve was not well visualized. There is trace regurgitation. There is no evidence of tricuspid valve stenosis. The right ventricular systolic pressure could not be estimated. Pulmonic Valve The pulmonic valve was not well visualized. There is trace regurgitation. There is no evidence of pulmonic valve stenosis. Ascending Aorta The aortic root is normal in size. IVC/SVC IVC is not well visualized. Pericardium There is no pericardial effusion. Wall Motion Wall Scoring Baseline Score Index: 1.00 The left ventricular wall motion is normal. 2D Measurements LV LV Diastolic Volume 72.5 mL LV Systolic Volume 25.3 mL LVIDs 2.8 cm IVS 0.8 cm PW 0.7 cm EF 65 % Echo EF Estimated 65 % FS 38 % LVIDd 4.5 cm RA RA 2D Volume 11.2 mL/m2 Aorta LVOT diameter 2.3 cm Aortic root 2.8 cm RV TAPSE 1.91 cm TASV 14.7 cm/s RV diastolic dimension (basal) 32 mm RVID d 3.2 cm LA LA size 3.1 cm LA volume 40.2 cm3 LA Volume Index 19 mL/m2 [facility] Z-Score Measurements Measurement Z-score Normal Range LVIDd 4.50 cm -2.59 4.95 - 6.87 (cm) LVIDs 2.80 cm -1.94 2.91 - 4.40 (cm) Data set: [place] Z-score normal range: +/-1.[address] of the chest with contrast dated 04/23/2024 at 8:28 AM INDICATION: Abnormal x-ray, adenopathy, mediastinal lymphadenopathy, lung nodule. . PROCEDURE: Automatic radiation exposure lowering techniques were utilized. All CT scans at this facility use dose modulation, iterative reconstruction, and/or weight based dosing when appropriate to reduce radiation dose to as low as reasonably achievable.. Following the intravenous injection of 70 mL of Omnipaque 300, a CT of the chest and sagittal and coronal reformats obtained. FINDINGS: Comparison is CT dated 09/26/2021. Paratracheal lymph node measuring 1.2 cm not significantly changed. No other enlarged lymph nodes seen in the axilla or mediastinum. There is a right middle lobe nodule measuring 1.4 cm, not significant free change. 3 mm nodule in the left lower lobe on axial slice #72. No airspace disease. No pleural effusion. There is mild pericardial thickening or tiny effusion. IMPRESSION: 1. Stable 1.4 cm right middle lobe nodule. 2. Stable 1.2 cm paratracheal lymph node. Dr. Lindsay Arrieta DO. [facility] Office: [phone] documented in this encounter [facility] 06-07-2024 Telephone encounter Note We have the clearance we are good to go [facility] Work Phone: 06-07-2024 Miscellaneous Notes We have the clearance we are good to go Prema at Dr Lopez office called and left vm regarding patient, she stated you needed an updated sx clearance for patient having wrist sx? She said there is addended one from 05/13/24 in chart. If you have questions or this is not what you need, please call her at [phone] option 3 goes straight to her desk. documented in this encounter [facility] 06-07-2024 Telephone encounter Note Script sent. [facility] 06-07-2024 Miscellaneous Notes Script sent. Prior auth for insulin went through, but was Prior auth'd for Semgle[employer], if we can change the script and send in 1 month to [facility]. clm documented in this encounter [facility] 06-07-2024 Telephone encounter Note Prior auth for insulin went through, but was Prior auth'd for Semglee, if we can change the script and send in 1 month to [facility]. clm [facility] 06-03-2024 Telephone encounter Note Prema at Dr Lopez office called and left vm regarding patient, she stated you needed an updated sx clearance for patient having wrist sx? She said there is addended one from 05/13/24 in chart. If you have questions or this is not what you need, please call her at [phone] option 3 goes straight to her desk. [facility] 01-05-2024 Miscellaneous Notes 01/05/2024- this patient called and left a vm, I called back and left a vm. mary documented in this encounter [facility] 01-05-2024 Telephone encounter Note 01/05/2024- this patient called and left a vm, I called back and left a vm. mary [facility] 11-28-2023 Miscellaneous Notes The results of the EBUS FNA was discussed with the patient. The FNA from R4 lymph node that is PET avid on the PET scan showed normal lymphocytes with no malignant cells. Flow cytometry demonstrates a mixed population of phenotypically unremarkable T-cells and polyclonal B-cells. Patient questions were answered. documented in this encounter [facility] 11-28-2023 Telephone encounter Note The results of the EBUS FNA was discussed with the patient. The FNA from R4 lymph node that is PET avid on the PET scan showed normal lymphocytes with no malignant cells. Flow cytometry demonstrates a mixed population of phenotypically unremarkable T-cells and polyclonal B-cells. Patient questions were answered. [facility] Work Phone: 11-15-2023 Instructions Formatting of th is note might be different from the original. Your surgery/procedure is scheduled at [facility] on 11/22/23 at 1:30 pm Arrival Time 11:30 am [facility] Address: [address] [place] [address] in [address] located on [facility]. Report to the Entrance B. Check in at the information desk the surgery. The waiting room located on the second floor. If you have any questions prior to surgery, please call Pre-Admission Clinic at [phone] between 7:30 am and 4:30 pm Monday through Monday. If you have questions the morning of surgery, please call the Pre-op Department at [phone]. Notify your SURGEON if you develop any illness such as a cold, cough, fever, sore throat, vomiting or are hospitalized between now and your surgery. CONTINUE TO TAKE YOUR MEDICATIONS PRESCRIBED. DO NOT STOP YOUR PRESCRIBED MEDICATIONS UNLESS DIRECTED BY YOUR PRESCRIBING PHYSICIAN Take the following medications the morning of surgery with a sip of water: Lisinopril, Atorvastatin, Wellbutrin, Zoloft, Lamictal, Ditropan, Pantoprazole Weight loss medications: n/a Take inhalers as prescribed the morning of surgery. . Blood thinners: Medications such as Coumadin, Heparin, Aspirin, Plavix, Eliquis, Pradaxa) Please contact your physician regarding a stop/hold date for these medications. Diabetics: If you take insulin, contact your prescribing doctor for instructions on how to manage this the night before and the morning of surgery. Non-steriodal Anti-Inflammatory Drugs (NSAIDS)- Stop 3 days prior to surgery unless otherwise directed by your surgeon. Vitamins/Herbal Products: You may continue to take your prescribed vitamins such as potassium, iron, vitamin B, vitamin C, or multivitamin unless specifically instructed by your surgeon to stop. STOP taking all herbal products/teas one week prior to your surgery. Marijuana: Stop marijuana 72 hours prior to surgery, stop CBD oil 48 hours prior to surgery. If you have been given bowel prep instructions by your surgeon, please call the surgeon's office with any questions about these instructions. What do I do the day of Surgery? Age 2 through adult - Stop all solids by midnight, You may have clear liquids up to 2 hours before surgery, unless otherwise instructed by your surgeon. Clear liquids are: water, sports drinks such as Gatorade or G2, or apple juice. You may NOT have: tube feedings, dairy products, alcoholic beverages, orange juice, or any liquids with solids or pulp in it. If applicable, shower again with CHG soap the morning of your surgery. If you received a green plastic bracelet, bring it with you the day of surgery and your nurse will put it on you. In order to help prevent infection post-operatively, you may be asked to use a CHG mouthwash when you arrive to the Pre-op area. Your nurse will provide instruction the morning of. What do I need to do to prepare for surgery? If you will be going home the same day as your surgery, arrange for an adult over [address] Riding in a bus or taxi by yourself is not permitted. You should not smoke or drink alcohol 24 hours before your surgery. Alcohol thins the blood and may cause bleeding problems during surgery. Smoking increases the risk of breathing problems after surgery. If you have been assigned FLIP Education by your surgeon's office, please complete this education prior to your surgery. For questions regarding FLIP education, reach out to your surgeon's office. If you have been given a prescription for occupational, physical or speech therapy, please set up these appointments before your procedure. If you would like to schedule therapy at a [facility] facility, please call [phone] ([phone]). Do not use lotions, creams, powders, perfume, make up, cologne or after-shaves day of surgery. Remove ALL jewelry including wedding rings, body piercings,hair extensions that contain metal, nail arabic, make-up, and contact lens. You may brush your teeth the morning of surgery, but do not swallow the water. Wear your dentures and partial plates to the hospital (no adhesive). Shower the night the before. If applicable, use the CHG (chlorhexidine gluconate) soap or wipes What should I bring to the hospital? If you received a green plastic bracelet, bring it with you the day of surgery and your nurse will put it on you. Eyeglass or contact lens case If you will be spending the night, please bring personal care items and leave them in the car until you are taken to your room after surgery. Leave ALL valuables at home. If any of these instructions conflict with those you received from the surgeon, please seek clarification from your surgeon's office. DEEP BREATHING EXERCISES This exercise helps promote good air exchange and helps to prevent pneumonia after surgery. Breathe in slowly and deeply through the nose. Hold your breath for a few seconds and then exhale slowly through the mouth. Repeat this three times and then cough.Coughing helps to clear your lungs. If you have had a surgery with an incision into your abdomen or chest, press gently against your incision with a pillow or a folded blanket when you cough. Please be aware - it may not be johnson to cough following some types of surgeries involving the eyes, ears, sinuses and throat. Always follow your doctor's instructions. LEG EXERCISE These exercises help promote good circulation and help to prevent blood clots after surgery. Point your toes to the ceiling and then point them to the wall. Do this slowly about 15-20 times. You may also move your feet in circles. Do the exercise that is most comfortable for you. If you have had surgery involving your shoulder or arm, we recommend you move your fingers. PRACTICING We ask that you begin practicing these exercises before your surgery. After surgery try to do both exercises at least every 2 hours during the day and early evening. SURGICAL SITE INFECTION PREVENTION What is a Surgical Site Infection? Infection can happen to the area of the body where surgery is done. This is called a surgical site infection (SSI). A SSI does not happen very often. Can SSIs be treated? Antibiotics are used to treat SSI. Some patients may need another surgery to treat the infection. The doctor will discuss treatment options with you. What are some of the things that hospitals are doing to prevent SSIs? Soap and water or alcohol hand rub are used before and after caring for each patient. Special soap is used to clean surgery workers hands and arms just before the surgery. Masks, gowns, gloves and hair covers are worn during the surgery to keep the area clean. Hair in the surgery area may be removed with clippers (not razors). A special soap that kills germs is used to clean the skin at the surgery site. Antibiotics may be given before the surgery starts. What can you do to prevent SSIs? Before surgery: You may be asked to shower or bathe with a special soap that kills germs the night before and the day of surgery. Use the soap as you were told. If you smoke, stop or cut down. Ask your doctor about ways to quit. Do not shave near where you will have surgery. Shaving can irritate the skin and make it easier to get and infection. After surgery: Be sure that the doctors and nurses clean their hands before and after touching you. Be sure your family and friends clean their hands before and after visiting you. Do not be afraid to remind them. * Care for your wound at home as told by your doctor or nurse * Call your doctor right away if you have fever, redness, increased pain, or drainage at the surgery site. Further questions? Contact the doctor, nurse or the Infection Prevention and Control department if you have any questions. PATIENT RIGHTS AND RESPONSIBILITIES As a patient at [facility], you have the right to: Receive medical care and be informed of who is taking care of you Be treated with dignity and respect Have a family member/pharmaceutical service 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 of choice and your physician notified of your admission Receive information and actively participate in decisions about your care and treatment Refuse care, treatment and services Decide who may provide your support and speak for you Access caodaism and spiritual services Participate in ethical issues and questions about your care Receive private and confidential care Have appropriate assessment and management of your pain Know guest visitation restrictions or limitations Have an advance directive Access protective services Consent or refuse to participate in research studies or production or recordings, films or other images Have resolution of your complaints Receive information of hospital charges and payment methods Patient/patient pharmaceutical service 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 responsibilities are to: Provide information about health status to facilitate care, treatment and services Follow the treatment, plan, keep appointments and speak up when you do not understand the plan Respect the rights of other patients and healthcare personnel Follow organizational rules and regulations that support quality care and a safe environment Fulfill financial obligations as promptly as possible [facility] 11-15-2023 Miscellaneous Notes Your surgery/procedure is scheduled at [facility] on 11/22/23 at 1:30 pm Arrival Time 11:30 am [facility] Address: [address] [place] [address] in [address]ing [address] located on [facility]. Report to the Entrance B. Check in at the information desk the surgery. The waiting room located on the second floor. If you have any questions prior to surgery, please call Pre-Admission Clinic at [phone] between 7:30 am and 4:30 pm Monday through Monday. If you have questions the morning of surgery, please call the Pre-op Department at [phone]. Notify your SURGEON if you develop any illness such as a cold, cough, fever, sore throat, vomiting or are hospitalized between now and your surgery. CONTINUE TO TAKE YOUR MEDICATIONS PRESCRIBED. DO NOT STOP YOUR PRESCRIBED MEDICATIONS UNLESS DIRECTED BY YOUR PRESCRIBING PHYSICIAN Take the following medications the morning of surgery with a sip of water: Lisinopril, Atorvastatin, Wellbutrin, Zoloft, Lamictal, Ditropan, Pantoprazole Weight loss medications: n/a Take inhalers as prescribed the morning of surgery. . Blood thinners: Medications such as Coumadin, Heparin, Aspirin, Plavix, Eliquis, Pradaxa) Please contact your physician regarding a stop/hold date for these medications. Diabetics: If you take insulin, contact your prescribing doctor for instructions on how to manage this the night before and the morning of surgery. Non-steriodal Anti-Inflammatory Drugs (NSAIDS)- Stop 3 days prior to surgery unless otherwise directed by your surgeon. Vitamins/Herbal Products: You may continue to take your prescribed vitamins such as potassium, iron, vitamin B, vitamin C, or multivitamin unless specifically instructed by your surgeon to stop. STOP taking all herbal products/teas one week prior to your surgery. Marijuana: Stop marijuana 72 hours prior to surgery, stop CBD oil 48 hours prior to surgery. If you have been given bowel prep instructions by your surgeon, please call the surgeon's office with any questions about these instructions. What do I do the day of Surgery? Age 2 through adult - Stop all solids by midnight, You may have clear liquids up to 2 hours before surgery, unless otherwise instructed by your surgeon. Clear liquids are: water, sports drinks such as Gatorade or G2, or apple juice. You may NOT have: tube feedings, dairy products, alcoholic beverages, orange juice, or any liquids with solids or pulp in it. If applicable, shower again with CHG soap the morning of your surgery. If you received a green plastic bracelet, bring it with you the day of surgery and your nurse will put it on you. In order to help prevent infection post-operatively, you may be asked to use a CHG mouthwash when you arrive to the Pre-op area. Your nurse will provide instruction the morning of. What do I need to do to prepare for surgery? If you will be going home the same day as your surgery, arrange for an adult over [address] Riding in a bus or taxi by yourself is not permitted. You should not smoke or drink alcohol 24 hours before your surgery. Alcohol thins the blood and may cause bleeding problems during surgery. Smoking increases the risk of breathing problems after surgery. If you have been assigned FLIP Education by your surgeon's office, please complete this education prior to your surgery. For questions regarding FLIP education, reach out to your surgeon's office. If you have been given a prescription for occupational, physical or speech therapy, please set up these appointments before your procedure. If you would like to schedule therapy at a [facility] facility, please call [phone] ([phone]). Do not use lotions, creams, powders, perfume, make up, cologne or after-shaves day of surgery. Remove ALL jewelry including wedding rings, body piercings,hair extensions that contain metal, nail arabic, make-up, and contact lens. You may brush your teeth the morning of surgery, but do not swallow the water. Wear your dentures and partial plates to the hospital (no adhesive). Shower the night the before. If applicable, use the CHG (chlorhexidine gluconate) soap or wipes What should I bring to the hospital? If you received a green plastic bracelet, bring it with you the day of surgery and your nurse will put it on you. Eyeglass or contact lens case If you will be spending the night, please bring personal care items and leave them in the car until you are taken to your room after surgery. Leave ALL valuables at home. If any of these instructions conflict with those you received from the surgeon, please seek clarification from your surgeon's office. DEEP BREATHING EXERCISES This exercise helps promote good air exchange and helps to prevent pneumonia after surgery. Breathe in slowly and deeply through the nose. Hold your breath for a few seconds and then exhale slowly through the mouth. Repeat this three times and then cough.Coughing helps to clear your lungs. If you have had a surgery with an incision into your abdomen or chest, press gently against your incision with a pillow or a folded blanket when you cough. Please be aware - it may not be johnson to cough following some types of surgeries involving the eyes, ears, sinuses and throat. Always follow your doctor's instructions. LEG EXERCISE These exercises help promote good circulation and help to prevent blood clots after surgery. Point your toes to the ceiling and then point them to the wall. Do this slowly about 15-20 times. You may also move your feet in circles. Do the exercise that is most comfortable for you. If you have had surgery involving your shoulder or arm, we recommend you move your fingers. PRACTICING We ask that you begin practicing these exercises before your surgery. After surgery try to do both exercises at least every 2 hours during the day and early evening. SURGICAL SITE INFECTION PREVENTION What is a Surgical Site Infection? Infection can happen to the area of the body where surgery is done. This is called a surgical site infection (SSI). A SSI does not happen very often. Can SSIs be treated? Antibiotics are used to treat SSI. Some patients may need another surgery to treat the infection. The doctor will discuss treatment options with you. What are some of the things that hospitals are doing to prevent SSIs? Soap and water or alcohol hand rub are used before and after caring for each patient. Special soap is used to clean surgery workers hands and arms just before the surgery. Masks, gowns, gloves and hair covers are worn during the surgery to keep the area clean. Hair in the surgery area may be removed with clippers (not razors). A special soap that kills germs is used to clean the skin at the surgery site. Antibiotics may be given before the surgery starts. What can you do to prevent SSIs? Before surgery: You may be asked to shower or bathe with a special soap that kills germs the night before and the day of surgery. Use the soap as you were told. If you smoke, stop or cut down. Ask your doctor about ways to quit. Do not shave near where you will have surgery. Shaving can irritate the skin and make it easier to get and infection. After surgery: Be sure that the doctors and nurses clean their hands before and after touching you. Be sure your family and friends clean their hands before and after visiting you. Do not be afraid to remind them. * Care for your wound at home as told by your doctor or nurse * Call your doctor right away if you have fever, redness, increased pain, or drainage at the surgery site. Further questions? Contact the doctor, nurse or the Infection Prevention and Control department if you have any questions. PATIENT RIGHTS AND RESPONSIBILITIES As a patient at [facility], you have the right to: Receive medical care and be informed of who is taking care of you Be treated with dignity and respect Have a family member/pharmaceutical service 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 of choice and your physician notified of your admission Receive information and actively participate in decisions about your care and treatment Refuse care, treatment and services Decide who may provide your support and speak for you Access caodaism and spiritual services Participate in ethical issues and questions about your care Receive private and confidential care Have appropriate assessment and management of your pain Know guest visitation restrictions or limitations Have an advance directive Access protective services Consent or refuse to participate in research studies or production or recordings, films or other images Have resolution of your complaints Receive information of hospital charges and payment methods Patient/patient pharmaceutical service 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 responsibilities are to: Provide information about health status to facilitate care, treatment and services Follow the treatment, plan, keep appointments and speak up when you do not understand the plan Respect the rights of other patients and healthcare personnel Follow organizational rules and regulations that support quality care and a safe environment Fulfill financial obligations as promptly as possible documented in this encounter [facility] 11-10-2023 History of Presen t illness Narrative Images from the original note were not included. [facility] PULMONARY/SLEEP MEDICINE [address] [id number] Subjective: Chief Complaint Mediastinal lymphadenopathy HPI The patient is 43-year-old female who is here as a new patient, she was referred by CT surgery for evaluation for EBUS. The patient had CT scan of the chest on 09/26/2021 that showed right upper lobe lung nodule 1.5 cm, repeat CT scan after 1 month of that showed stable lung nodule. She had PET scan on 10/23/2023 that showed stable nodule and not PET avid. However The PET scan showed right paratracheal lymph node in station 4R with SUV of 2.8. The patient denies any history of lung cancer. She never smoked. She denies any weight loss. No fever or chills. No recent infections or upper respiratory infection. She gets short of breath after exertion. No shortness a breath at rest. No wheezing She worked in [employer] in the past with no significant exposure to chemicals. No exposure to asbestos. She does not work since 3-4 years. She lives with her in apartment in [place] Review of Systems Constitutional: Negative. Negative for appetite change, chills and fever. HENT: Negative for congestion and rhinorrhea. Eyes: Negative for itching. Respiratory: Negative for cough, chest tightness and shortness of breath. Gastrointestinal: Negative for abdominal pain. Genitourinary: Negative for dysuria. Musculoskeletal: Negative for back pain. Skin: Negative for color change and pallor. Neurological: Negative for dizziness. Psychiatric/Behavioral: Negative for agitation and confusion. Allergies: Sulfamethoxazole-trimethoprim Past Medical History: Diagnosis Date Deep vein thrombosis (CMS-HCC) Diabetes mellitus type I (CMS-HCC) Elevated cholesterol GERD (gastroesophageal reflux disease) Hyperlipidemia Hypertension MR (mental retardation) Visual impairment Past Surgical History: Procedure Laterality Date CHOLECYSTECTOMY TONSILLECTOMY TUBAL LIGATION Bilateral 2018 ? Social History Tobacco Use Smoking Status Never Smokeless Tobacco Never Social History Substance and Sexual Activity Alcohol Use Yes Comment: occasionally-once a month Social History Substance and Sexual Activity Drug Use Never Social History Substance and Sexual Activity Sexual Activity Defer control/protection: None ? Family History Problem Relation Age of Onset Cancer Father Diabetes Mother Social History Tobacco Use Smoking status: Never Smokeless tobacco: Never Substance Use Topics Alcohol use: Yes Comment: occasionally-once a month Objective: There were no vitals filed for this visit. Physical Exam Vitals and nursing note reviewed. Constitutional: General: She is not in acute distress. Appearance: Normal appearance. She is not ill-appearing or toxic-appearing. HENT: Head: Normocephalic and atraumatic. Nose: Nose normal. No rhinorrhea. Mouth/Throat: Mouth: Mucous membranes are moist. Eyes: Extraocular Movements: Extraocular movements intact. Cardiovascular: Rate and Rhythm: Normal rate and regular rhythm. Heart sounds: Normal heart sounds. No murmur heard. Pulmonary: Effort: Pulmonary effort is normal. No respiratory distress. Breath sounds: Normal breath sounds. No stridor. No wheezing, rhonchi or rales. Chest: Chest wall: No tenderness. Abdominal: Palpations: Abdomen is soft. Musculoskeletal: Cervical back: Neck supple. Skin: General: Skin is warm and dry. Coloration: Skin is not jaundiced or pale. Neurological: Mental Status: She is alert. Most recent Labs, images were reviewed and independently verified. Assessment/Plan: Impression Mediastinal lymphadenopathy Stable right upper lobe pulmonary nodule since 2 years BMI 43 Recommendations The patient has a stable right upper lobe lung nodule since 2 years. No need for more follow-up. The PET scan showed activity in R4 nodule. Discussed the treatment options and the causes with the patient. It is not clear what cause that infection, she denies any recent infections. Differential diagnosis includes fungal infections, bacterial infections, autoimmune disorders however malignancy is on the differential diagnosis. We can either follow up with CT scans or proceed directly with biopsy. She would like to proceed with biopsy, will schedule EBUS with biopsy from 4R nodule. Get fungal serology, Histoplasma, Fungitell and coccidio serology. PET findings/CT chest findings were explained to the patient. Patient was advised to stay active. Discussed the plan of care in details with the patient. Follow-up after EBUS. Thank you for involving me in this patient's care. Libby Finley MD. Pulmonary and Critical Care Physician 11/10/23. Please note that portions of this note were generated using voice recognition [employer] 3D dictation software. Although every effort was made to ensure the accuracy of this automated automatic paint sprayer operator, some errors in automatic paint sprayer operator may have occurred. documented in this encounter [facility] 11-09-2023 History of Presen t illness Narrative Pulm referral for EBUS for pet positive mediastinal lymph node documented in this encounter [facility] 11-09-2023 History of Presen t illness Narrative Images from the original note were not included. CARDIAC SURGERY OUTPATIENT CONSULT Date of Consultation: 11/09/2023 PCP: DIAZ BETTS MD Chief Complaint: Right lung nodule mediastinal lymph node History of Present Illiness Carissa Lozada is a 43 y.o. female who presents with CT chest on 09/26/2021 shows a 1.5 cm right upper lobe lung nodule. This was also seen on CT chest 10/24/2023 where it was unchanged in size. Also PET scan with that demonstrates that the nodule was PET negative however there is pretracheal lymph node which was PET positive. She has some nonspecific chest discomfort. Note that she had a normal CTA coronaries.. She has mild dyspnea on exertion.. Past Medical History Past Medical History: Diagnosis Date Deep vein thrombosis (CMS-HCC) Diabetes mellitus type I (CMS-HCC) GERD (gastroesophageal reflux disease) Hyperlipidemia MR (mental retardation) Visual impairment Surgical History has a past surgical history that includes Cholecystectomy; Tonsillectomy; and Tubal ligation (Bilateral, 2018). Allergies Allergies Allergen Reactions Sulfamethoxazole-Trimethoprim Hives, Itching and Other (See Comments) Home Meds Prior to Admission medications Medication Sig Start Date End Date Taking? Authorizing Provider atorvastatin (LIPITOR) 40 mg tablet Take 1 tablet (40 mg total) by mouth in the morning. Yes Not In System Ref Prov buPROPion XL (WELLBUTRIN XL) 300 mg 24 hr tablet Take 1 tablet (300 mg total) by mouth every morning. Yes Not In System Ref Prov cholecalciferol, vitamin D3, 400 units tablet Take 1 tablet (400 Units total) by mouth in the morning. Yes Not In System Ref Prov insulin aspart U-100 (NovoLOG) 100 unit/mL injection Inject under the skin 3 (three) times a day before meals. Yes Not In System Ref Prov insulin glargine (LANTUS) 100 unit/mL injection Inject under the skin nightly. Yes Not In System Ref Prov lamoTRIgine (LaMICtal) 200 mg tablet Take 1 tablet (200 mg total) by mouth in the morning. Yes Not In System Ref Prov lisinopriL (PRINIVIL,ZESTRIL) 2.5 mg tablet Take 1 tablet (2.5 mg total) by mouth in the morning. 07/13/23 Yes Katelyn Recio MD oxybutynin XL (DITROPAN XL) 15 mg 24 hr tablet Take 1 tablet (15 mg total) by mouth in the morning. 06/19/23 Yes Not In System Ref Prov pantoprazole (PROTONIX) 40 mg EC tablet Take 1 tablet (40 mg total) by mouth every morning before breakfast. Yes Not In System Ref Prov pioglitazone (ACTOS) 45 mg tablet Take 1 tablet (45 mg total) by mouth in the morning. Yes Not In System Ref Prov prazosin (MINIPRESS) 2 mg capsule Take 1 capsule (2 mg total) by mouth nightly. Yes Not In System Ref Prov sertraline (ZOLOFT) 100 mg tablet Take 1 tablet (100 mg total) by mouth in the morning. Yes Not In System Ref Prov Social History Social History Socioeconomic History Marital status: Spouse name: Not on file Number of children: Not on file Years of education: Not on file Highest education level: Not on file Occupational History Not on file Tobacco Use Smoking status: Never Smokeless tobacco: Never Vaping Use Vaping Use: Never used Substance and Sexual Activity Alcohol use: Yes Comment: occasionally-once a month Drug use: Never Sexual activity: Defer control/protection: None Other Topics Concern Caffeine Use Yes Social History Narrative Not on file Social Determinants of Health Financial Resource Strain: Low Risk (06/05/2023) Overall Financial Resource Strain (CARDIA) Difficulty of Paying Living Expenses: Not hard at all Food Insecurity: No Food Insecurity (11/09/2023) Hunger Screening Food Insecurity - Worry: Never True Food Insecurity - Inability: Never True Transportation Needs: No Transportation Needs (06/05/2023) PRAPARE - Transportation Lack of Transportation (Medical): No Lack of Transportation (Non-Medical): No Physical Activity: Insufficiently Active (06/05/2023) Exercise Vital Sign Days of Exercise per Week: 1 day Minutes of Exercise per Session: 10 min Stress: No Stress Concern Present (06/05/2023) [employer] [employer] - Occupational Stress Questionnaire Feeling of Stress : Only a little Social Connections: Moderately Isolated (06/05/2023) Social Connection and Isolation Panel [NHANES] Frequency of Communication with Friends and Family: More than three times a week Frequency of Social Gatherings with Friends and Family: More than three times a week Attends Congregation Services: Never Active Member of Clubs or Organizations: No Attends Club or Organization Meetings: Never Marital Status: Interpersonal Safety: Not At Risk (06/05/2023) Humiliation, Afraid, Rape, and Kick questionnaire Fear of Current or Ex-Partner: No Emotionally Abused: No Physically Abused: No Sexually Abused: No Housing Instability: Low Risk (06/05/2023) Housing Instability Housing Instability: No Family History Family History Problem Relation Age of Onset Cancer Father Diabetes Mother Review of Systems Review of Systems Cardiovascular: Positive for chest pain. Respiratory: Positive for shortness of breath. Neurological: Positive for numbness. Physical Examination Vital Signs: BP 129/81 Pulse 103 Temp 36.3 C (97.3 F) (Temporal) Resp 18 Wt 103.9 kg (229 lb) LMP 10/22/2023 (Exact Date) SpO2 95% BMI 43.27 kg/m General appearance: She appears comfortable Head: Normocephalic, without obvious abnormality, atraumatic Eyes: Conjunctivae/corneas clear. PERRL, EOM's intact. Neck: Negative Lungs: Clear Heart: Regular rate and rhythm no murmur Abdomen: Soft, non-tender. Bowel sounds normal. No masses, no organomegaly Extremities: Normal Skin: Skin color, texture, turgor normal. No rashes or lesions Neurologic: Grossly normal Assessment All testing has been independently reviewed Diagnosis: 1.5 cm right upper lobe lung nodule which has 2 years of stability on imaging in his PET negative. PET scan demonstrates pretracheal lymph nodes which are PET positive. Plan Recommend referral to Pulmonary Medicine to evaluate for potential EBUS with biopsy of pretracheal lymph node. Right upper lobe lung nodule with 2 years of stability requires no intervention. Thank you for referring the patient allowing me to participate in her care documented in this encounter [facility] 10-24-2023 History of Presen t illness Narrative Lvm at the referrring office to follow up if patient had pet/ct scan completed documented in this encounter [facility] 10-10-2023 History of Presen t illness Narrative Contacted the referring office to see if patient got PET/CT scan completed. Referring office is still waiting for testing to be completed documented in this encounter [facility] 10-10-2023 History of Presen t illness Narrative Reason for Appointment: Patient ID: Carissa Lozada is a 43 y.o. female who presents for Amenorrhea Patient presents today via telephone call for a telehealth appointment. Patients Phone #: [phone] (mobile) Current Medications: has a current medication list which includes the following prescription(s): acyclovir, albuterol hfa, atorvastatin, bupropion xl, cholecalciferol, freestyle crystal 14 day sensor, dicyclomine, droplet pen needles, trulicity, furosemide, hydrocodone-acetaminophen, insulin aspart flexpen, levemir flexpen, lamotrigine, lanolin, lisinopril, lorazepam, metoprolol tartrate, nabumetone, oxybutynin xl, pantoprazole, pioglitazone, prazosin, sertraline, sumatriptan, and trazodone. Medical History: Active Ambulatory Problems Diagnosis Date Noted Allergic rhinitis due to allergen 10/01/2009 Anxiety state ([facility]) 10/01/2009 Carpal tunnel syndrome of left wrist 04/06/2023 Contracture, unspecified ankle 04/06/2023 Edema 04/06/2023 Equinus deformity of left foot 04/06/2023 Gastroesophageal reflux disease 04/06/2023 Genital warts 04/06/2023 Hot flashes due to menopause 04/06/2023 Type 2 diabetes mellitus with microalbuminuria, with long-term current use of insulin ([facility]) 04/06/2023 Internal derangement of left shoulder 04/06/2023 Irritable bowel syndrome with diarrhea 04/06/2023 Mild developmental delay 09/29/2021 Migraine without aura, not refractory ([facility]) 04/06/2023 Mild episode of recurrent major depressive disorder (HCC) ([facility]) 04/06/2023 Morbid obesity ([facility]) 11/21/2022 Type 2 diabetes mellitus with polyneuropathy ([facility]) 06/10/2021 Obstructive sleep apnea syndrome 09/30/2009 Osteoarthritis of knee 04/06/2023 Overactive bladder 04/06/2023 Panic disorder without agoraphobia ([facility]) 11/12/2009 Dyslipidemia ([facility]) 04/22/2010 Spondylosis without myelopathy 08/10/2010 Cavitary lesion of lung 08/10/2023 Other chest pain 08/10/2023 Resolved Ambulatory Problems Diagnosis Date Noted Acute kidney injury (DREW) with acute tubular necrosis (ATN) ([facility]) 09/30/2021 Acute pain of left shoulder 04/06/2023 Shoulder joint pain 04/06/2021 Convulsions in the 09/30/2009 Cubital tunnel syndrome on left 11/04/2022 Fecal incontinence 06/22/2016 High anion gap metabolic acidosis 09/30/2021 Hyperglycemia 03/01/2019 Mild intellectual disability ([facility]) 09/30/2009 Other chronic pain 04/06/2023 Pneumonia due to infectious organism 09/29/2021 Poorly controlled diabetes mellitus ([facility]) 08/10/2015 Normal gynecologic examination 06/09/2015 Missed period 04/06/2023 DKA, type 1, not at goal ([facility]) 09/27/2021 Type 2 diabetes mellitus ([facility]) 09/30/2009 Past Medical History: Diagnosis Date Ankle fracture Anxiety and depression ([facility]) At low risk for fall Bilateral leg edema Chest pain, central Chronic left shoulder pain Chronic pain Epilepsy ([facility]) JOHN (generalized anxiety disorder) ([facility]) GERD (gastroesophageal reflux disease) History of being hospitalized History of medical problems Hyperlipidemia ([facility]) Insomnia, persistent MDD (major depressive disorder), recurrent episode, mild ([facility]) ([facility]) Migraine without aura and without status migrainosus, not intractable ([facility]) Morbid obesity with BMI of 40.0-44.9, adult ([facility]) Nocturnal hypoxemia Nonsmoker OAB (overactive bladder) Obesity JOSE M (obstructive sleep apnea) Postoperative urinary retention Primary osteoarthritis of left knee Seasonal allergies Type 2 diabetes mellitus with diabetic polyneuropathy, with long-term current use of insulin ([facility]) Type 2 diabetes mellitus with hyperglycemia, with long-term current use of insulin ([facility]) Type 2 diabetes mellitus without complication ([facility]) Vitamin D deficiency Family History Problem Relation Name Age of Onset Hypertension Mother Asthma Mother extrinsic Alzheimer's disease Father Diabetes Father Hypertension Father Hyperlipidemia Father Stroke Father No Known Problems Sister No Known Problems Brother Social History Tobacco Use Smoking status: Never Smokeless tobacco: Never Substance Use Topics Alcohol use: Never Comment: Caffeine: 1-2 cups/day , mountain dew occasionally Drug use: Never Past Surgical History: Procedure Laterality Date ADENOIDECTOMY CARPAL TUNNEL RELEASE Left 09/25/2023 Dr Miller CHOLECYSTECTOMY 2009 CT ANGIOGRAM HEART CORONARY 09/27/2021 CT ANGIOGRAM TAVR 09/27/2021 CT ANGIOGRAM HEART CORONARY 08/08/2023 CT ANGIOGRAM HEART CORONARY 08/08/2023 LAPAROSCOPIC TUBAL LIGATION W/ FILCHIE CLIPS 12/29/2017 LAPAROSCOPY DIAGNOSTIC / BIOPSY / ASPIRATION / LYSIS 12/29/2017 Diagnostic laparoscopy LAPAROTOMY OVARIAN CYSTECTOMY 03/31/2023 [place] ARTHROCENTESIS ASPIR&/INJ MAJOR JT/BURSA W/O US Right Arthrocentesis of the right knee joint REQUEST FOR SCREENING COLONOSCOPY 04/01/2019 Colonoscopy, screening SALPINGECTOMY Bilateral 03/31/2023 FERREIRA WART REMOVAL 08/14/2015 genital wart removal TONSILLECTOMY Allergies Allergen Reactions Sulfamethoxazole-Trimethoprim Hives and Itching Vitals: Estimated body mass index is 44.74 kg/m as calculated from the following: Height as of 08/31/23: 5' 1 . Weight as of 09/26/23: 236 lb 12.8 oz. BP: No LMP recorded. Assessment/Plan Encounter Diagnosis Name Primary? Amenorrhea Pt consented to telehealth. Pt having menstrual irregularities labs and ultrasound ordered and faxed to [place] for pt to have obtained. Will notify when results come in. Pt voiced understanding. Documented by Dayanara Wheatley LPN on behalf of: Feliz Benz DO documented in this encounter [facility] 10-05-2023 History of Presen t illness Narrative HISTORY OF PRESENT ILLNESS: Carissa Lozada is an 43 y.o. @ female. 1st po x 10 days s/p LT CTR 09/25/23. Keeping wrist wrapped in marco a wrap. Soreness in wrist. Also having thumb pain. Taking percocet daily. Continues to have N/T in all fingers, minimal improvement since sx. Does not wake at HS if she takes percocet. Minimal swelling. Pain is 0/10 today, goes to 6/10 at HS. Denies drainage. Stitches intact, removed today. Steri strips applied. Incision healing well. REVIEW OF SYSTEMS: General: Denies fever, fatigue or weight loss Lungs: Denies SOB Cardio: Denies chest pain GI: Denies indigestion or abdominal pain Neuro: Denies numbness or tingling, denies new onset paralysis Musculoskeletal: ( see note) PHYSICAL EXAM: Right Hand Exam Comments: Left Hand Exam Left hand exam is normal. Tenderness The patient is experiencing tenderness in the palmar area (EXPECTED POST OPERATIVE SORENESS AT INICISION.). Range of Motion The patient has normal left wrist ROM. Muscle Strength The patient has normal left wrist strength (MOTORS HAND AND WRIST WITHIN LIMITS OF SURGERY). Other Erythema: absent Scars: present (WELL HEALING, SUTURES PRESENT, REMOVED) Sensation: decreased (some numbness still present in fingers) Pulse: present Comments: The operative upper extremity was neurovascularly unchanged. Patient was able to motor fingers and thumb to operative upper extremity in all anatomic planes with 5 out of 5 strength. Radial and ulnar pulses were present and equal bilaterally postoperatively. Capillary refill was less than 2 seconds postoperatively to operative upper extremity nailbeds. Compartments were soft to operative upper extremity postoperatively. ASSESSMENT: Status post carpal tunnel release PLAN: 10 days s/p LT Carpal tunnel release: Plan: I reviewed Post Op care and instructions with the patient. No forceful gripping for 4 weeks from the date of surgery. Work on rom of fingers. use for light activities such as eating, keyboarding, writing and phone. She will follow up in 4 weeks for RCK. Questions answered in laymen terms at the bedside. The diagnosis, home exercise plan and any ongoing restrictions/ recommendations reviewed. If unable to be reached in office, I recommend evaluation at nearest Emergency Room if any symptoms worsened or new symptoms develop for requiring urgent evaluation. Barry Snowden ARMED SECURITY GUARD-HEAVY DUTY CUSTODIAN documented in this encounter [facility] 10-05-2023 Note [id number] 09-26-2023 Note [id number] 09-25-2023 Note [facility] SURGERY Clinical Discharge Summary PERSON INFORMATION Name CARISSA LOZADA Age 43 Years 1980 Sex FEMALE Language Cambodian PCP DIAZ BETTS Marital Status Phone Med Service Ambulatory Surgery Acct# Arrival 09/25/2023 06:07:34 Visit Reason Surgery- Left carpal tunnel release Acuity LOS 018 22:07 Address: [address] [place] [id number] Comment: PROVIDER INFORMATION VITALS INFORMATION Vital Sign [...] every day. [email or web address] (more content not included)... [facility] 09-25-2023 Note Procedure: Decompres maria teresa of median nerve left wrist with release of carpal canal Pre Op Diagnosis: Carpal tunnel syndrome left Post Op Diagnosis: Carpal tunnel syndrome left Surgeon: Dr. Aldo Miller DO Anesthesia: MAC local Indication for Surgery: The [...] None [Electronically Signed on: 09/25/2023 08:41 EST] PaulArianna burgess DO [Verified on: 09/25/2023 08:41 EST] Arianna Miller DO [facility] 09-11-2023 History of Presen t illness Narrative 2nd attempt to contact referring office for most recent office notes and testing documented in this encounter [facility] 12-07-2022 Note Attestation signed by Robson Paz [...] Medical History: Diagnosis Date Anxiety Diabetes mellitus ([facility]) Objective Exam: - Incision with slight gapping and granulation tissue present, no evidence of infection - Reasonable post-surgical ROM, swelling, and tenderness - Sensation grossly intact distally - Brisk capillary refill Assessment/Plan Carissa Lozada is a 42 y.o. year old female s/p Ulnar Nerve Decompression - Left (11/21/2022) - Patient doing well after surgery - Patient will monitor incision for any signs of infection, no need for antibiotics at this point but they will contact clinic if there are any issues - Return to clinic as needed Ousmane Perez MD Orthopedic Surgery, PGY-5 Pager: [phone] 12/07/22 11:51 AM By using the attestations [...] be an additional personal documentation from me. [facility] 11-21-2022 Note Patient: Carissa Olvera or Procedure Summary Date: 11/21/22 Room / Location: [facility] OR [address] [place] [address] OR Anesthesia Start: 1046 Anesthesia Stop: 114 Procedure: ULNAR NERVE DECOMPRESSION (Left: Forearm) Diagnosis: [...] no known notable events for this encounter. [facility] 11-21-2022 Note Patient: Carissa Olvera or Procedure Information Anesthesia Start Date/Time: 11/21/221046 Procedure: ULNAR NERVE DECOMPRESSION (Left: Forearm) Location: [facility] OR [address] [place] [address] OR Surgeons: Robson Paz MD Relevant Problems [...] Plan discussed with CAA. Additional Equipment Requests [facility] 11-21-2022 Note Patient: Carissa Olvera or Procedure Summary Date: 11/21/22 Room / Location: [address] OR Anesthesia Start: 7 Anesthesia Stop: Procedure: ULNAR NERVE DECOMPRESSION (Left: Forearm) Diagnosis: Cubital tunnel syndrome on left (Cubital tunnel syndrome on left [G56.22]) Surgeons: Robson Paz MD Responsible Provider: Paul Smith MD Anesthesia Type: MAC ASA Status: Not recorded Anesthesia Post [facility] Oxygen Flow (L/min): 8 Patient Monitor: direct observation Transport: uneventful Patient condition is: stable [facility] 11-21-2022 Note Peripheral Block Patient location during procedure: pre-op Start time: 11/21/2022 10:15 AM End time: 11/21/2022 10:30 AM Reason for block: primary anesthetic and at surgeon's request Staffing Performed: resident/SALES AND TRAINING SPECIALIST/CAA Anesthesiologist: Paul Smith MD Resident/SALES AND TRAINING SPECIALIST: Mike Calloway MD Preanesthetic Checklist Completed: patient identified, IV checked, site marked, risks and benefits discussed, surgical consent, monitors and equipment checked, pre-op evaluation and timeout performed Peripheral Block Patient position: supine Prep: ChloraPrep Patient monitoring: heart rate and continuous pulse ox Block type: supraclavicular brachial plexus Laterality: left Injection technique: single-shot Guidance: ultrasound guided Needle Needle type: Quincke Needle gauge: 22 G Needle length: 2 [...] rate change: no Slow fractionated injection: yes [facility] 11-04-2022 Note Attestation signed by Robson Paz [...] presents with Left Arm - Pain 11/04/22 Carissa Lozada is a 42 y.o. year old [id number] female presenting for evaluation of left hand [...] Past Medical History: Diagnosis Date Diabetes mellitus ([facility]) Objective General: Body mass index is 41.38 [...] finger: normal A1 carina and AROM Strength: special education inclusion teacher 5/5, thumb 5/5, interossei 5/5 Sensation: intact [...] at outside facility. Results described above. Assessment/Plan Carissa Lozada is a 42 y.o. year old [...] surgical intervention - Instructed patient that our salesperson surgical appliances reach out regarding future surgical date - Surgery will be performed under regional anesthesia -Return to clinic for surgical intervention -Call the orthopedic office any questions or concerns Michael Ward MD Orthopedic Surgery Resident Physician Pager: [phone] 11/04/22 12:35 PM By using the attestations [...] be an additional personal documentation from me. [facility] 10-03-2021 History of Presen t illness Narrative Images from the original note were not included. [facility] Office: [phone] Hemal Charles DO, Steve Raza DO, [place] [...] Donavan Richardson MD, Autumn David CNP, Laurie Heranndez HEAVY DUTY CUSTODIAN, Veronica Garcia, HEAVY DUTY CUSTODIAN, Ada Rascon, PRODUCTION GRADER, Jamal Soto, HEAVY DUTY CUSTODIAN, Shellie Patton, HEAVY DUTY CUSTODIAN, Dahiana Albarado, HEAVY DUTY CUSTODIAN, Reba Holly HEAVY DUTY CUSTODIAN, Andi Mcdonald HEAVY DUTY CUSTODIAN, Terrance Smalls PA-C, Dahiana Vyas, DNP, Christina Tanner, DNP, Karyna Hernandez, HEAVY DUTY CUSTODIAN, Corina Bedoya, HEAVY DUTY CUSTODIAN, Amber Dewey, HEAVY DUTY CUSTODIAN, Archana Lockhart, HEAVY DUTY CUSTODIAN, Emili Stapleton, HEAVY DUTY CUSTODIANNina CNP [facility] IN-PATIENT SERVICE [facility] Progress Note 10/03/2021 12:57 PM Name: Carissa Lozada Acct: [id number] Room: 0161/0161-01 Day: 5 Admit Date: 09/28/2021 9:38 AM PCP: Diaz Betts MD Code Status: Full Code Subjective: C/C: DKA Interval History Status: unchanged. Patient seen and examined, feeling better today. Discharge, plan for transfer to be Brief History: Carisas Lozada is a 41 year old female who [facility]. Her presentation to ED on 09/26/21 showed her initial blood sugar of 816 with a beta-hydroxybutyrate 11.24, anion gap >25 with (+) ketones in urine. She was started on DKA protocol with bicarb drip, IVF and insulin drip and was transferred to [facility] on 09/28/21 for ICU admission and further treatment. In addition she had an elevated D-dimer. CTPE (-) for PE but concerning for RML pulmonary nodule and ill-defined ground glass opacification in the RUL concerning for PNA. She did have episodes of vomiting which have subsided. She was bridged to lantus insulin and insulin drip was discontinued. Transfer to [facility] bed 09/29/21 Review of Systems: Constitutional: negative [...] in this interval not displayed. Recent Labs 10/01/2123310/01/21 0825 10/01/21 0859 10/01/21 1119 10/02/21 0806 [...] & CRITICAL CARE MEDICINE PROGRESS NOTE Patient: Carissa Lozada Admit date: 09/28/2021 Primary Care Physician: Diaz Betts MD Consulting Physician: Guido Serna DO CODE Status: Full Code LOS: 5 SUBJECTIVE Chief Complaint/ Reason for consult: Pneumonia Hospital Course: The patient is a 41 y.o. female with past medical history of MRDD initially went to the [facility] for nausea, shivering, chills and altered mental status. Patient was found to have DKA with bilateral lower lobe pneumonia. CTA negative for PE but it showed 13 mm pulmonary nodule. Patient was transferred to [facility] for further care. In ICU she was [...] [P.O.:750] Out: - Date 10/03/21 0000 - 10/03/21 2359 Shift 6094-8441 9893-8896 5562-8793 24 Hour Total INTAKE P.O.(mL/kg/hr) 360(0.4) 360 Shift Total(mL/kg) 360(3.6) 360(3.6) OUTPUT Shift Total(mL/kg) Weight (kg) 101.2 101.2 101.2 101.2 LABS: ABGs: No results for input(s): POCPH, POCPCO2, POCPO2, POCHCO3, CCQE4NDC in the last 72 hours. CBC: Recent [...] this chart was generated using voice recognition [employer] dictation software. Although every effort was made to ensure the accuracy of this automated automatic paint sprayer operator, some errors in automatic paint sprayer operator may have occurred. [employer] spoke with pt's mother Jeanine in regards to patient's discharge. Jeanine states she knows how to perform the dressing on pt's arm and is comfortable doing so. Pt will need a ride home. [employer] will reach out to case management for setting up a ride. Images from the original note were not included. [facility] Office: [phone] Hemal Charles DO, Steve Raza DO, Costa [...] Laurie Hernandez CNP, Veronica Garcia CNP, Ada Rascon VICENTE, Jamal Soto, HEAVY DUTY CUSTODIAN, Shellie Patton, HEAVY DUTY CUSTODIAN, Dahiana Albarado, HEAVY DUTY CUSTODIAN, Reba Holly, HEAVY DUTY CUSTODIAN, Andi Mcdonald, HEAVY DUTY CUSTODIAN, Terrance Smalls PA-C, Dahiana Vyas, KIMBERLY, Christina Tanner, KIMBERLY, Karyna Hernandez, HEAVY DUTY CUSTODIAN, Corina Bedoya, HEAVY DUTY CUSTODIAN, Amber Dewey, HEAVY DUTY CUSTODIAN, Archana Lockhart, HEAVY DUTY CUSTODIAN, Emili Stapleton, HEAVY DUTY CUSTODIAN, Nina Anthony, HEAVY DUTY CUSTODIAN [facility] IN-PATIENT SERVICE [facility] Progress Note 10/02/2021 1:51 PM Name: Carissa Lozada Acct: [id number] Room: IP Day: 4 Admit Date: 09/28/2021 9:38 AM PCP: Diaz Betts MD Code Status: Full Code Subjective: C/C: DKA Interval History Status: unchanged. Diarrhea has improved today, discussed discharge which patient was agreeable with. Family will be able to help her with wound care, advise starting a decreased brace for her Lantus increase as needed. Brief History: Carissa Lozada is a 41 year old female who [facility]. Her presentation to ED on 09/26/21 showed her initial blood sugar of 816 with a beta-hydroxybutyrate 11.24, anion gap >25 with (+) ketones in urine. She was started on DKA protocol with bicarb drip, IVF and insulin drip and was transferred to [facility] on 09/28/21 for ICU admission and further [...] C), Max:98.8 F (37.1 C) Recent Labs 10/01/21201710/02/21 0616 10/02/21 0806 10/02/21 1114 POCGLU 177* [...] 0825 10/01/21 0859 10/01/21 1119 10/01/21 1638 10/01/21 2018 10/02/21 0616 10/02/21 0806 0132 10/02/21 1114 PROT -- -- 4.6* -- [...] & CRITICAL CARE MEDICINE PROGRESS NOTE Patient: Carissa Lozada Admit date: 09/28/2021 Primary Care Physician: Diaz Betts MD Consulting Physician: Guido Serna DO CODE Status: Full Code LOS: 4 SUBJECTIVE Chief Complaint/ Reason for consult: Pneumonia Hospital Course: The patient is a 41 y.o. female with past medical history of MRDD initially went to the [facility] for nausea, shivering, chills and altered mental status. Patient was found to have DKA with bilateral lower lobe pneumonia. CTA negative for PE but it showed 13 mm pulmonary nodule. Patient was transferred to [facility] for further care. In ICU she was [...] Out: 400 [Urine:400] Date 10/02/21 0000 - 10/02/21 235 Shift 1855-1893 1551-3240 4700-7669 24 Hour Total INTAKE I.V.(mL/kg) 522(5.2) 522(5.2) Shift Total(mL/kg) 522(5.2) 522(5.2) OUTPUT Shift Total(mL/kg) Weight (kg) 101.2 101.2 101.2 101.2 LABS: ABGs: No results for input(s): POCPH, POCPCO2, POCPO2, POCHCO3, XUUK7RGT in the last 72 hours. CBC: Recent [...] Keith Bailey MD PGY-3, Internal medicine resident [facility], [place], [place] Please note that this chart was generated using voice recognition [employer] dictation software. Although every effort was made to ensure the accuracy of this automated automatic paint sprayer operator, some errors in automatic paint sprayer operator may have occurred. Associated attestation - Gian Marr MD - 10/02/2021 6:49 PM EST Attending Physician Statement I have discussed the case of Carissa Lozada, including pertinent history and exam findings with the resident/fellow/medical student/PRODUCTION COUNTER/PA. I have seen and examined the patient and the timmons elements of the encounter have been performed by me. I agree with the assessment, plan and orders as documented by the resident/fellow/medical student/PRODUCTION COUNTER/PA With changes made to the note as [...] for the lung nodule identified in an [facility] films CT scan of the abdomen with trace bilateral pleural fluid and mild bibasilar atelectasis Patient will follow up with her primary care physician and campus rep in [place] as she does not have any transportation to come to [facility] Gian Marr MD 10/02/2021 6:48 PM [employer] notified Pt was in SVT with HR [...] cough or weak non-productive cough GOSIA LEON, [facility] 1:03 PM FEMALE MALE FEV1 Predicted Normal [...] [phone] Physical Therapy Facility/Department: [address] [facility] Daily Treatment Note NAME: Carissa Lozada : 1980 Date of Service: 10/01/2021 [...] 0-100% Score: 46.58 (10/01/21 1230) Mobility Inpatient CMS G-Code Modifier : CK (10/01/211229) Goals Short term goals Time Frame for [...] Minutes Sarah Guzmán PTA Called pt room [phone]) and number in chart but no answer. [...] from the original note were not included. [facility] Office: [phone] Hemal Charles DO, Steve Raza DO, Costa Cai DO, Gallito Lino DO, Natalee Negrete MD, Coreen Bryant MD, Shruti Bautista MD, Zulay Bueno MD, Priya Paul MD, Kevin Collins MD, Lyndsey Galindo MD, Morro Overton DO, Guido Serna DO, Rakel Aquino MD, Libby Samuel DO, Maycol Gomez MD, Kalyan Corbett MD, Shahzad Faria MD, Cee Casarez MD, Donavan Richardson MD, Autumn David, HEAVY DUTY CUSTODIAN, Laurie Hernandez, HEAVY DUTY CUSTODIAN, Veronica Garcia, HEAVY DUTY CUSTODIAN, Ada Rascon, PRODUCTION GRADER, Jamal Soto, HEAVY DUTY CUSTODIAN, Shellie Patton, HEAVY DUTY CUSTODIAN, Dahiana Albarado, HEAVY DUTY CUSTODIAN, Reba Holly, HEAVY DUTY CUSTODIAN, Andi Mcdonald, HEAVY DUTY CUSTODIAN, Terrance Smalls PA-C, Dahiana Vyas, DNP, Christina Tanner, DNP, Karyna Hernandez, HEAVY DUTY CUSTODIAN, Corina Bedoya, HEAVY DUTY CUSTODIAN, Amber Dewey, HEAVY DUTY CUSTODIAN, Archana Lockhart, HEAVY DUTY CUSTODIAN, Emili Stapleton, HEAVY DUTY CUSTODIAN, Nina Anthony, HEAVY DUTY CUSTODIAN [facility] IN-PATIENT SERVICE [facility] Progress Note 10/01/2021 11:21 AM Name: Carissa Lozada Acct: [id number] Room: 0161/0161-01 IP Day: 3 Admit Date: 09/28/2021 9:38 AM PCP: Diaz Betts MD Code Status: Full Code Subjective: C/C: DKA Interval History Status: unchanged. Patient seen and examined today, continues to have diffuse diarrhea. Bicarb still 13 on full bicarb drip. Will consult infectious disease, spoke with nursing staff Brief History: Carissa Lozada is a 41 year old female who was transferred from an outlying facility with DKA. Her presentation to ED on 09/26/21 showed her initial blood sugar of 816 with a beta-hydroxybutyrate 11.24, anion gap >25 with (+) ketones in urine. She was started on DKA protocol with bicarb drip, IVF and insulin drip and was transferred to [facility] on 09/28/21 for ICU admission and further treatment. In addition she had an elevated D-dimer. CTPE (-) for PE but concerning for RML pulmonary nodule and ill-defined ground glass opacification in the RUL concerning for PNA. She did have episodes of vomiting which have subsided. She was bridged to lantus insulin and insulin drip was discontinued. Transfer to [facility] bed 09/29/21 Review of Systems: Constitutional: negative [...] injury (DREW) with acute tubular necrosis (ATN) ([facility] 09/30/2021 Yes High anion gap metabolic acidosis [...] & CRITICAL CARE MEDICINE PROGRESS NOTE Patient: Carissa Lozada Admit date: 09/28/2021 Primary Care Physician: Diaz Betts MD Consulting Physician: Guido Serna DO CODE Status: Full Code LOS: 3 SUBJECTIVE Chief Complaint/ Reason for consult: Pneumonia Hospital Course: The patient is a 41 y.o. female with past medical history of MRDD initially went to the [facility] for nausea, shivering, chills and altered mental status. Patient was found to have DKA with bilateral lower lobe pneumonia. CTA negative for PE but it showed 13 mm pulmonary nodule. Patient was transferred to [facility] for further care. In ICU she was [...] Out: 2600 [Urine:2600] Date 10/01/21 0000 - 01/28/22 2359 Shift 5462-9310 6987-8362 8282-1766 24 Hour Total INTAKE Shift Total(mL/kg) OUTPUT Urine(mL/kg/hr) 600(0.7) 600 Shift Total(mL/kg) 600(5.9) 600(5.9) Weight (kg) 101.2 101.2 101.2 101.2 LABS: ABGs: No results for input(s): POCPH, POCPCO2, POCPO2, POCHCO3, VBDP9ECY in the last 72 hours. CBC: Recent [...] last 72 hours. BMP: Recent Labs 09/28/21 2157 09/28/21 2157 09/29/21 0153 09/29/21 0153 09/29/21 0501 [...] Test: Recent Labs 10/01/21 0234 10/01/21 0859 PROT 4.6* -- LABALBU 1.9* -- [...] Keith Bailey MD PGY-3, Internal medicine resident [facility], [place], [place] Please note that this chart was generated using voice recognition [employer] dictation software. Although every effort was made to ensure the accuracy of this automated automatic paint sprayer operator, some errors in automatic paint sprayer operator may have occurred. Attending Physician Statement I have discussed the care of Carissa Lozada, including pertinent history and exam findings [...] x-ray PA lateral view tomorrow. Images from outlying hospital of CT scan is not available at this time we will requested again. Patient is aware and discussed with her again that she will need CT scan of the chest for follow-up of right middle lobe lung nodule in 3 months. Patient follow-up locally in [facility] with CT scan and outpatient pulmonary CT scan Discussed with nursing staff, treatment and plan discussed. Please note that this chart was generated using voice recognition [employer] dictation software. Although every effort was made to ensure the accuracy of this automated automatic paint sprayer operator, some errors in automatic paint sprayer operator may have occurred. Leonel Draper MD 10/01/2021 11:36 AM Occupational Therapy Occupational Therapy Initial Assessment Date: 09/30/2021 Patient Name: Carissa Lozada : 1980 41-year-old female with history [...] No General Comment Comments: RN ok'd OT eval this date. Pt agreeable to session, pleasant/cooperative [...] Ambulation Assistance: Independent Transfer Assistance: Independent Active Pedal Assembler: No Patient's Pedal Assembler Info: mother drives Occupation: Unemployed Leisure & [...] ADL Inpatient CMS G-Code Modifier : CK (01/27/22 1710) Goals Short term goals Time Frame for [...] 41 Timed Code Treatment Minutes: 23 Minutes Ofelia Yates OTS [employer] reached out to loading unit operator crimping on 2C to obtain lung scans from [facility]. advice clerk attempting to reach out, specifications writer will reevaluate Attempted assessment/education but plant health care technician assisting pt with personal care/needs. PULMONARY & CRITICAL CARE MEDICINE PROGRESS NOTE Patient: Carissa Lozada Admit date: 09/28/2021 Primary Care Physician: Diaz Betts MD Consulting Physician: Maycol Gomez MD CODE Status: Full Code LOS: 2 SUBJECTIVE Chief Complaint/ Reason for consult: Pneumonia Hospital Course: The patient is a 41 y.o. female with past medical history of MRDD initially went to the [facility] for nausea, shivering, chills and altered mental status. Patient was found to have DKA with bilateral lower lobe pneumonia. CTA negative for PE but it showed 13 mm pulmonary nodule. Patient was transferred to [facility] for further care. In ICU she was [...] 2750 [Urine:2750] Date 09/30/21 0000 - 09/30/21 235 Shift 7445-7819 5041-8369 6282-8422 24 Hour Total INTAKE Shift Total(mL/kg) OUTPUT Urine(mL/kg/hr) 500(0.6) 1000 1500 Shift Total(mL/kg) 500(4.9) 1000(9.9) 1500(14.8) Weight (kg) 101.2 101.2 101.2 101.2 LABS: ABGs: No results for input(s): POCPH, POCPCO2, POCPO2, POCHCO3, [id number] in the last 72 hours. CBC: Recent [...] Keith Bailey MD PGY-3, Internal medicine resident [facility], [place], [place] Please note that this chart was generated using voice recognition [employer] dictation software. Although every effort was made to ensure the accuracy of this automated automatic paint sprayer operator, some errors in automatic paint sprayer operator may have occurred. Attending Physician Statement I have discussed the care of Carissa Lozada, including pertinent history and exam findings [...] CT scan [facility] chest [facility] before she was transferred shows right upper lobe possible groundglass infiltrate/pneumonia and right middle lobe 13 mm nodule which according to radiology report (I do not have any images available from outlying hospital) could be infectious inflammatory or other [...] this chart was generated using voice recognition [employer] dictation software. Although every effort was made to ensure the accuracy of this automated automatic paint sprayer operator, some errors in automatic paint sprayer operator may have occurred. Leonel Draper MD 09/30/2021 3:36 PM RN attempted to call mother of patient, Lynne, to give update on pt's status, with no answer. Will try again later. Physical Therapy Facility/Department: [address] [facility] Initial Assessment NAME: Carissa Lozada : 1980 Carissa Lozada is a 41 y.o. Non- / [...] Ambulation Assistance: Independent Transfer Assistance: Independent Active Pedal Assembler: No Patient's Pedal Assembler Info: mother drives Occupation: Unemployed Leisure & [...] Bed mobility Supine to Sit: Minimal assistance (GATE SHEAR OPERATOR) Sit to Supine: (retired to bedside chair [...] Time Individual Concurrent Group Co-treatment Time In 834 Time Out 0916 Minutes 41 Timed Code Treatment Minutes: 8 Minutes Chinyere Black PT Images from the original note were not included. [facility] Office: [phone] Hemal Charles DO, Steve Raza DO, Costa [...] Hernandez CNP, Veronica Garcia CNP, Ada Rascon, PRODUCTION GRADER, Jamal Soto, LUCIANO, Shellie Patton HEAVY DUTY CUSTODIAN, Dahiana Albarado, HEAVY DUTY CUSTODIAN, Reba Holly, HEAVY DUTY CUSTODIAN, Andi Mcdonald, HEAVY DUTY CUSTODIAN, Terrance Smalls PA-C, Dahiana Vyas DNP, Christina Tanner DNP, Karyna Hernandez, HEAVY DUTY CUSTODIAN, Corina Bedoya HEAVY DUTY CUSTODIAN, Amber Dewey HEAVY DUTY CUSTODIAN, Archana Lockhart, HEAVY DUTY CUSTODIAN, Emili Stapleton, HEAVY DUTY CUSTODIAN, Nina Anthony, HEAVY DUTY CUSTODIAN [facility] IN-PATIENT SERVICE [facility] Progress Note 09/30/2021 11:41 AM Name: Carissa Lozada Acct: [id number] Room: [facility] Day: 2 Admit Date: 09/28/2021 9:38 AM PCP: Diaz Betts MD Code Status: Full Code Subjective: C/C: DKA Interval History Status: unchanged. Pt seen and evaluated this morning. She continues to feel ill. Continues to have a dry cough. She is denying fever, chills, nausea, vomiting, diarrhea. Brief History: Carissa Lozada is a 41 year old female who [facility]. Her presentation to ED on 09/26/21 showed her initial blood sugar of 816 with a beta-hydroxybutyrate 11.24, anion gap >25 with (+) ketones in urine. She was started on DKA protocol with bicarb drip, IVF and insulin drip and was transferred to [facility] on 09/28/21 for ICU admission and further treatment. In addition she had an elevated D-dimer. CTPE (-) for PE but concerning for RML pulmonary nodule and ill-defined ground glass opacification in the RUL concerning for PNA. She did have episodes of vomiting which have subsided. She was bridged to lantus insulin and insulin drip was discontinued. Transfer to [facility] bed 09/29/21 Review of Systems: Constitutional: negative [...] and time: 09/29/2021 3:09 PM Patient's name: Carissa Lozada Patient's account/billing number: [id number] Patient's Date of : 1980 Age: 41 [...] history of MRDD, diabetes mellitus came from [facility] after presenting there with altered mental status and found to be in DKA. Over that patient was started on an insulin drip, Ringer lactate, bicarb drip. Transferred to [facility] for further management. Overnight was bridged to Lantus, tolerating diet. On admission her D-dimer was high, CT PE negative for emboli but concerning for pneumonia as well as right middle lobe 13 mm pulmonary nodule. Patient is being treated with ceftriaxone and azithromycin for pneumonia and UTI, Diflucan added for yeast in urine. office services 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 consulted Current Vitals: BP (!) 109/59 Pulse [...] and time: 09/29/2021 8:19 AM Patient's name: Carissa Lozada Patient's account/billing number: [id number] Patient's Date of : 1980 Age: 41 [...] degree Ulcer prophylaxis: [] PPI Agent, [] O1Igpdz, [] Sucralfate, [] Other: Not indicated Glycemic [...] NaCl Stopped (09/29/21 0712) insulin Stopped (09/29/21 023) PRN Meds: glucose, 15 g, PRN dextrose, [...] 107* Last 3 Blood Glucose: Recent Labs 09/28/21215609/29/21 0153 09/29/21 0501 GLUCOSE 156* 127* 217* PT/INR: No results found for: PROTIME, INR PTT: No results found for: APTT, PTT Comprehensive Metabolic Profile: Recent Labs 09/28/21215609/29/21 0153 09/29/21 0501 NA 131* 133* 133* K 3.4* 3.7 3.4* CL 110* 113* 110* CO2 15* 13* 12* BUN 32* 32* 32* CREATININE 2.24* 2.39* 2.29* GLUCOSE 156* 127* 217* CALCIUM 8.5* 8.0* 8.0* Magnesium: Lab Results Component Value Date MG 1.8 09/29/2021 Phosphorus: Lab Results Component Value Date PHOS 3.0 09/29/2021 Ionized Calcium: No results found for: FAITH Urinalysis: Troponin: No results for input(s): TROPONINI [...] Giron Sra, MD Department of Critical Care [facility] [place] 09/29/2021, 8:19 AM Associated attestation - Gian Marr MD - 09/29/2021 7:26 PM EST Attending Physician Statement I have discussed the case of Carissa Lozada, including pertinent history and exam findings with the resident/fellow/medical student/PRODUCTION COUNTER/PA. I have seen and examined the patient and the timmons elements of the encounter have been performed by me. I agree with the assessment, plan and orders as documented by the resident/fellow/medical student/PRODUCTION COUNTER/PA With changes made to the note as [...] monitor We will transfer the patient to [facility] bed and we will follow the [...] with pastoral care, Ethics consult entered per ecology professor's recommendation for help with decision making and comprehension with medical care/needs since pt's is also MRDD and pt's mother does not fully comprehend medical care/needs, Dr Casarez agreeable Updated pt's mom Lynne and Braxton. Per Lynne, Braxton is also special needs like Carissa . She is aware that he is next of kin but she reports he has difficulty understanding things. When Braxton called he had a friend helping him because he couldn't make the call . He missed a phone call from case management because he doesn't know how to use the cell phone. There is no advanced directives for Carissa. They live in an Independent Living apartment in a senior citizen's community. Images from the original note were not included. [facility] Wound Ostomy Continence Nurse Consult Note NAME: Carissa Lozada AGE: 41 y.o. GENDER: female : 1980 TODAY'S DATE: 09/28/2021 Subjective: Reason for WOCN Evaluation and Assessment: Carissa Lozada is a 41 y.o. female referred [...] Wound Volume (cm^3) 2.96 cm^3 Wound Assessment Subcutaneous;Dimmitt/red Drainage Amount Small Drainage Description Serosanguinous Odor [...] contents upon arrival. documented in this encounter [employer] Phone: 09-29-2021 Hospital Discharg e instructions Li Phelan RN - 09/29/2021 1:44 PM EST Images from the original note were not included. 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 Wound 09/28/21 Brachial Anterior;Right (Active) Wound Image 09/28/21 1445 Wound Etiology Surgical 09/29/21 0800 Dressing Status Clean;Dry;Intact 09/29/21 0800 Wound Cleansed Irrigated with saline 09/28/21 1445 Dressing/Treatment Iodoform gauze;Dry dressing 09/28/21 1445 Dressing Change Due 09/29/21 09/29/21 0800 Wound Length (cm) 3.7 cm 09/28/21 1445 Wound Width (cm) 1 cm 09/28/21 1445 Wound Depth (cm) 0.8 cm 09/28/21 1445 Wound Surface Area (cm^2) 3.7 cm^2 09/28/21 1445 Wound Volume (cm^3) 2.96 cm^3 09/28/21 1445 Wound Assessment Other (Comment) 09/29/21 [id number] Drainage Amount Small 09/28/21 1445 Drainage Description [...] [facility] [address] [facility] [address] Dialysis Facility (if applicable) Name: Address: Dialysis Schedule: Phone: Fax: Explosive Expert/Grease Press Helper signature: PHYSICIAN SECTION Prognosis: Good Condition at Discharge: Stable Rehab Potential (if transferring to Rehab): Good Recommended Labs or Other Treatments After Discharge: jail assessment, medication education, wound care Rt upper arm: Irrigate the arm wound with NS Gently fill with Iodoform gauze Cover with dry gauze Change daily. Physician Certification: I certify the above information and transfer of Carissa Lozada is necessary for the continuing treatment of the diagnosis listed and that she requires Home Care for greater 30 days. 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, uncontrolled Pneumonia due to infectious organism Mental developmental delay Unspecified delay in development Acute kidney injury (DREW) with acute tubular necrosis (ATN) ([facility]) High anion gap metabolic acidosis Acidosis documented in this encounter [employer] Phone: evaluation note* Diagnosis Status post carpal tunnel release- Primary Other postprocedural status Amenorrhea Absence of menstruation [facility] Diagnosis Amenorrhea Absence of menstruation documented [facility]* Diagnosis Cavitary lesion of lung [facility] Diagnosis Mediastinal lymphadenopathy- Primary Enlargement of lymph nodes [facility] Diagnosis Mediastinal lymphadenopathy- Primary Enlargement of lymph nodes Pulmonary nodule Other diseases of lung, not elsewhere classified Morbid obesity ([facility]) Morbid obesity [facility] Diagnosis Type 2 diabetes mellitus with hyperglycemia, with long-term current use of insulin ([facility])- Primary [facility]* Diagnosis Moderate persistent asthma without complication- Primary Obstructive sleep apnea syndrome Obstructive sleep apnea (adult) (pediatric) Pulmonary nodule Other diseases of lung, not elsewhere classified Chronic hypoxic respiratory failure ([facility]) [facility] Diagnosis Post-operative pain- Primary Other acute postoperative pain [facility]* Diagnosis Mild episode of recurrent major depressive disorder (HCC) ([facility])- Primary Type 2 diabetes mellitus with microalbuminuria, with long-term current use of insulin ([facility]) JOHN (generalized anxiety disorder) ([facility]) Generalized anxiety disorder Migraine without aura and without status migrainosus, not intractable ([facility]) Irritable bowel syndrome with diarrhea Irritable bowel syndrome Gastroesophageal reflux disease without esophagitis Esophageal reflux Hot flashes due to menopause Morbid obesity (CMS/HCC) Morbid obesity penitentiary (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 insulin (Z79.4) Obesity hypoventilation syndrome (CMS/HCC)- Primary Obesity hypoventilation syndrome Hypoxia Hypoxemia Type 2 diabetes mellitus with microalbuminuria, with long-term current use of insulin (CMS/HCC) Right carpal tunnel syndrome Carpal tunnel syndrome Elevated blood-pressure reading without diagnosis of hypertension Elevated blood pressure reading without diagnosis of hypertension Type 2 diabetes mellitus with hyperglycemia, with long-term current use of insulin (CMS/HCC)- Primary Mild episode of recurrent major depressive disorder (HCC) (CMS/HCC) JOHN (generalized anxiety disorder) (CMS/HCC) Generalized anxiety disorder Carpal tunnel syndrome of left wrist Obesity hypoventilation syndrome (CMS/HCC) Obesity hypoventilation syndrome Generalized edema Edema Irritable bowel syndrome with diarrhea Irritable bowel syndrome Gastroesophageal reflux disease without esophagitis Esophageal reflux Anxiety state (CMS/HCC) Anxiety state, unspecified Type 2 diabetes mellitus with hyperglycemia, with long-term current use of insulin ([facility]/HCC)- Primary Right carpal tunnel syndrome Carpal tunnel syndrome Chronic hypoxic respiratory failure (CMS/HCC) Mild episode of recurrent major depressive disorder (HCC) (CMS/HCC) JOHN (generalized anxiety disorder) ([facility]) Generalized anxiety disorder Generalized edema 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 Spondylosis of unspecified site without mention of myelopathy 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 elsewhere (CMS/[facility]) Acute pain of right knee- Primary Type 2 diabetes mellitus with microalbuminuria, with long-term current use of insulin ([facility]/HCC) Right carpal tunnel syndrome Carpal tunnel syndrome Status post carpal tunnel release- Primary Other postprocedural status [facility] Diagnosis Pulmonary hypertension ([facility]-HCC)- Primary Other chronic pulmonary heart diseases [facility] Diagnosis Mild episode of recurrent major depressive disorder (HCC) (CMS/HCC)- Primary Type 2 diabetes mellitus with microalbuminuria, with long-term current use of insulin (CMS/HCC) JOHN (generalized anxiety disorder) ([facility]) Generalized anxiety disorder Migraine without aura and without status migrainosus, not intractable (CMS/HCC) Irritable bowel syndrome with diarrhea Irritable bowel syndrome Gastroesophageal reflux disease without esophagitis Esophageal reflux Hot flashes due to menopause Morbid obesity (CMS/HCC) Morbid obesity penitentiary (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 insulin (Z79.4) Obesity hypoventilation syndrome ([facility]/HCC)- Primary Obesity hypoventilation syndrome Hypoxia Hypoxemia Type 2 diabetes mellitus with microalbuminuria, with long-term current use of insulin (CMS/HCC) Right carpal tunnel syndrome Carpal tunnel syndrome Elevated blood-pressure reading without diagnosis of hypertension Elevated blood pressure reading without diagnosis of hypertension Type 2 diabetes mellitus with hyperglycemia, with long-term current use of insulin ([facility]/HCC)- Primary Mild episode of recurrent major depressive disorder (HCC) (CMS/HCC) JOHN (generalized anxiety disorder) ([facility]) Generalized anxiety disorder Carpal tunnel syndrome of left wrist Obesity hypoventilation syndrome (CMS/HCC) Obesity hypoventilation syndrome Generalized edema Edema Irritable bowel syndrome with diarrhea Irritable bowel syndrome Gastroesophageal reflux disease without esophagitis Esophageal reflux Anxiety state ([facility]) Anxiety state, unspecified Type 2 diabetes mellitus with hyperglycemia, with long-term current use of insulin ([facility]/HCC)- Primary Right carpal tunnel syndrome Carpal tunnel syndrome Chronic hypoxic respiratory failure ([facility]) Mild episode of recurrent major depressive disorder (HCC) ([facility]/HCC) JOHN (generalized anxiety disorder) ([facility]) Generalized anxiety disorder Generalized edema 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 Spondylosis of unspecified site without mention of myelopathy 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 elsewhere ([facility]) Acute pain of right knee- Primary Type 2 diabetes mellitus with microalbuminuria, with long-term current use of insulin ([facility]) Right carpal tunnel syndrome Carpal tunnel syndrome Anxiety state ([facility]) Anxiety state, unspecified documented in this encounter [facility]* Diagnosis Dyspnea on exertion- Primary Other dyspnea and respiratory abnormality Pulmonary hypertension ([facility]) Other chronic pulmonary heart diseases [facility] Diagnosis Mild episode of recurrent major depressive disorder (HCC) ([facility])- Primary Type 2 diabetes mellitus with microalbuminuria, with long-term current use of insulin ([facility]/HCC) JOHN (generalized anxiety disorder) ([facility]) Generalized anxiety disorder Migraine without aura and without status migrainosus, not intractable (CMS/[facility]) Irritable bowel syndrome with diarrhea Irritable bowel syndrome Gastroesophageal reflux disease without esophagitis Esophageal reflux Hot flashes due to menopause Morbid obesity (CMS/HCC) Morbid obesity 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 insulin (Z79.4) Obesity hypoventilation syndrome (CMS/HCC)- Primary Obesity hypoventilation syndrome Hypoxia Hypoxemia Type 2 diabetes mellitus with microalbuminuria, with long-term current use of insulin (CMS/HCC) Right carpal tunnel syndrome Carpal tunnel syndrome Elevated blood-pressure reading without diagnosis of hypertension Elevated blood pressure reading without diagnosis of hypertension Type 2 diabetes mellitus with hyperglycemia, with long-term current use of insulin (CMS/HCC)- Primary Mild episode of recurrent major depressive disorder (HCC) (CMS/HCC) JOHN (generalized anxiety disorder) ([facility]/HCC) Generalized anxiety disorder Carpal tunnel syndrome of left wrist Obesity hypoventilation syndrome (CMS/HCC) Obesity hypoventilation syndrome Generalized edema Edema Irritable bowel syndrome with diarrhea Irritable bowel syndrome Gastroesophageal reflux disease without esophagitis Esophageal reflux Anxiety state ([facility]) Anxiety state, unspecified Type 2 diabetes mellitus with hyperglycemia, with long-term current use of insulin ([facility]/HCC)- Primary Right carpal tunnel syndrome Carpal tunnel syndrome Chronic hypoxic respiratory failure ([facility]) Mild episode of recurrent major depressive disorder (HCC) ([facility]) JOHN (generalized anxiety disorder) ([facility] Generalized anxiety disorder Generalized edema 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 Spondylosis of unspecified site without mention of myelopathy 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 elsewhere ([facility]) Acute pain of right knee- Primary Type 2 diabetes mellitus with microalbuminuria, with long-term current use of insulin ([facility]) Right carpal tunnel syndrome Carpal tunnel syndrome Status post carpal tunnel release- Primary Other postprocedural status documented in this encounter [facility]* Diagnosis Mild episode of recurrent major depressive disorder (HCC) ([facility]/HCC)- Primary Type 2 diabetes mellitus with microalbuminuria, with long-term current use of insulin ([facility]) JOHN (generalized anxiety disorder) ([facility]) Generalized anxiety disorder Migraine without aura and without status migrainosus, not intractable ([facility]/HCC) Irritable bowel syndrome with diarrhea Irritable bowel syndrome Gastroesophageal reflux disease without esophagitis Esophageal reflux Hot flashes due to menopause Morbid obesity (CMS/HCC) Morbid obesity penitentiary (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 insulin (Z79.4) Obesity hypoventilation syndrome (CMS/HCC)- Primary Obesity hypoventilation syndrome Hypoxia Hypoxemia Type 2 diabetes mellitus with microalbuminuria, with long-term current use of insulin ([facility]/HCC) Right carpal tunnel syndrome Carpal tunnel syndrome Elevated blood-pressure reading without diagnosis of hypertension Elevated blood pressure reading without diagnosis of hypertension Type 2 diabetes mellitus with hyperglycemia, with long-term current use of insulin ([facility])- Primary Mild episode of recurrent major depressive disorder (HCC) ([facility]) JOHN (generalized anxiety disorder) ([facility]) Generalized anxiety disorder Carpal tunnel syndrome of left wrist Obesity hypoventilation syndrome ([facility]/HCC) Obesity hypoventilation syndrome Generalized edema Edema Irritable bowel syndrome with diarrhea Irritable bowel syndrome Gastroesophageal reflux disease without esophagitis Esophageal reflux Anxiety state ([facility]) Anxiety state, unspecified Type 2 diabetes mellitus with hyperglycemia, with long-term current use of insulin ([facility])- Primary Right carpal tunnel syndrome Carpal tunnel syndrome Chronic hypoxic respiratory failure ([facility]) Mild episode of recurrent major depressive disorder (HCC) ([facility]) JOHN (generalized anxiety disorder) ([facility] Generalized anxiety disorder Generalized edema 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 Spondylosis of unspecified site without mention of myelopathy 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 elsewhere ([facility]) Acute pain of right knee- Primary Type 2 diabetes mellitus with microalbuminuria, with long-term current use of insulin ([facility]) Right carpal tunnel syndrome Carpal tunnel syndrome Type 2 diabetes mellitus with hyperglycemia, with long-term current use of insulin ([facility]) documented in [facility] encounter [facility]* Diagnosis Mild episode of recurrent major depressive disorder (HCC) ([facility])- Primary Type 2 diabetes mellitus with microalbuminuria, with long-term current use of insulin ([facility]) JOHN (generalized anxiety disorder) ([facility]) Generalized anxiety disorder Migraine without aura and without status migrainosus, not intractable ([facility]) Irritable bowel syndrome with diarrhea Irritable bowel syndrome Gastroesophageal reflux disease without esophagitis Esophageal reflux Hot flashes due to menopause Morbid obesity ([facility]) Morbid obesity 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 insulin (Z79.4) Obesity hypoventilation syndrome ([facility])- Primary Obesity hypoventilation syndrome Hypoxia Hypoxemia Type 2 diabetes mellitus with microalbuminuria, with long-term current use of insulin ([facility]) Right carpal tunnel syndrome Carpal tunnel syndrome Elevated blood-pressure reading without diagnosis of hypertension Elevated blood pressure reading without diagnosis of hypertension Type 2 diabetes mellitus with hyperglycemia, with long-term current use of insulin ([facility])- Primary Mild episode of recurrent major depressive disorder (HCC) (CMS/HCC) JOHN (generalized anxiety disorder) (CMS/HCC) Generalized anxiety disorder Carpal tunnel syndrome of left wrist Obesity hypoventilation syndrome (CMS/HCC) Obesity hypoventilation syndrome Generalized edema Edema Irritable bowel syndrome with diarrhea Irritable bowel syndrome Gastroesophageal reflux disease without esophagitis Esophageal reflux Anxiety state (CMS/HCC) Anxiety state, unspecified Type 2 diabetes mellitus with hyperglycemia, with long-term current use of insulin (CMS/HCC)- Primary Right carpal tunnel syndrome Carpal tunnel syndrome Chronic hypoxic respiratory failure (CMS/HCC) Mild episode of recurrent major depressive disorder (HCC) (CMS/HCC) JOHN (generalized anxiety disorder) (CMS/HCC) Generalized anxiety disorder Generalized edema 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 Spondylosis of unspecified site without mention of myelopathy 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 elsewhere (CMS/HCC) Acute pain of right knee- Primary Type 2 diabetes mellitus with microalbuminuria, with long-term current use of insulin ([facility]/HCC) Right carpal tunnel syndrome Carpal tunnel syndrome Chronic hypoxic respiratory failure ([facility]/HCC)- Primary Chronic heart failure with preserved ejection fraction (HFpEF) ([facility]/HCC) Type 2 diabetes mellitus with hyperglycemia, with long-term current use of insulin (CMS/HCC) Pulmonary hypertension ([facility]/HCC) Other chronic pulmonary heart diseases Colon cancer screening Special screening for malignant neoplasms, colon Gastroesophageal reflux disease without esophagitis Esophageal reflux documented in this encounter [facility]ructionsNot on filedocumented in this [facility] SystemInstructionsNot on filedocumented in this [facility]ructionsNot on filedocumented in this [facility] SystemInstructionsNot on filedocumented in this [facility] InstructionsNot on filedocumented in this [facility] InstructionsNot on filedocumented in this [facility] InstructionsNot on filedocumented in this [facility] InstructionsNot on filedocumented in this [facility] InstructionsNot on filedocumented in this [facility] InstructionsNot on filedocumented in this [facility] InstructionsNot on filedocumented in this [facility] InstructionsNot on filedocumented in this [facility] InstructionsNot on filedocumented in this [facility]Pro[facility]Res[facility] for [facility] (narrative)* Consultation (Routine) - Pending Review Specialty Diagnoses / Procedures Referred By Contac t Referred To Contact Pulmonary Medicine Diagnoses Mediastinal lymphadenopathy Angela Witt MD [address] [employer] [facility] [address] [place] [address] [facility] Pulm Sleep Med [address] [facility] [address] [place] [address] Referral ID Status Reason Start Date Expiration Date Visits Requested Visits Authorized [id number] Pending Review Specialty Services Required 11/09/2023 11/08/2024 1 1 [facility] for visit Narrative* Auth/Cert Specialty Diagnoses / Procedures Referred By Contac t Referred To Contact Diagnoses DKA, type 1, not at goal (HCC) BENNIEA Jamal Levine MD [address] [facility] [address] [place] [address] [employer] [address] [place] [address] Referral ID Status Reason Start Date Expiration Date Visits Re quested Visits Authorized [id number] 1 1 [employer] Phone: reason for visit Narrative* Consultation (Routine) - Pending Review Specialty Diagnoses / Procedures Referred By Contac t Referred To Contact Cardiothoracic Surgery Diagnoses Cavitary lesion of lung Diaz Betts MD [address] [place] [address] Angela Witt MD [address] [employer] [address] [place] [address] Referral ID Status Reason Start Date Expiration Date Visits Requested Visits Authorized [id number] Pending Review Specialty Services Required 09/19/2023 09/18/2024 1 1 [facility] [employer] [facility] Summary Purpose Family History No Family History Records FoundNo Family History Records FoundNo Family History Records FoundNo Family History Records FoundNo Family History Records FoundNo Family History Records FoundNo Family History Records FoundNo Family History Records FoundNo Family History Records FoundNo Family History Records FoundNo Family History Records FoundNo Family History Records Found Advance Directives Latest Code Status on File Code Status Date Activated Date Inactivated Comments Full Code 09/28/2021 9:46 AM Latest Code Status on File Code Status Date Activated Date Inactivated Comments Full Code 06/05/2023 6:38 AM 06/05/2023 7:25 PM Code Status History Code Status Date Activated Date Inactivated Comments Full Code 03/02/2019 2:48 PM 03/03/2019 5:59 PM Latest Code Status on File Code Status Date Activated Date Inactivated Comments Full Code 06/05/2023 6:38 AM 06/05/2023 7:25 PM Code Status History Code Status Date Activated Date Inactivated Comments Full Code 03/02/2019 2:48 PM 03/03/2019 5:59 PM Date Activated Date Inactivated Comments 12/20/2023 10:13 PM 12/23/2023 5:45 PM Date Activated Date Inactivated Comments 06/05/2023 6:38 AM 06/05/2023 7:25 PM Date Activated Date Inactivated Comments 03/02/2019 2:48 PM 03/03/2019 5:59 PM Date Activated Date Inactivated Comments 07/21/2024 10:40 PM 07/23/2024 7:57 PM Date Activated Date Inactivated Comments 12/20/2023 10:13 PM 12/23/2023 5:45 PM Date Activated Date Inactivated Comments 06/05/2023 6:38 AM 06/05/2023 7:25 PM Date Activated Date Inactivated Comments 03/02/2019 2:48 PM 03/03/2019 5:59 PM Additional Source Comments INFORMATION SOURCE (unrecogn ized section and content) DATE CREATED AUTHOR 02/07/2021 [facility] DATE CREATED AUTHOR AUTHOR'S ORGANIZ ATION 02/20/2021 [facility] DATE CREATED AUTHOR AUTHOR'S ORGANIZ ATION 06/06/2021 [facility] DATE CREATED AUTHOR AUTHOR'S ORGANIZ ATION 10/01/2021 [facility] DATE CREATED AUTHOR AUTHOR'S ORGANIZ ATION 10/06/2021 [facility] DATE CREATED AUTHOR AUTHOR'S ORGANIZ ATION 12/09/2022 [facility] DATE CREATED AUTHOR AUTHOR'S ORGANIZ ATION [facility]/2023 [facility] DATE CREATED AUTHOR AUTHOR'S ORGANIZ ATION 03/24/2024 [facility] DATE CREATED AUTHOR AUTHOR'S ORGANIZ ATION 06/15/2024 [facility] DATE CREATED AUTHOR AUTHOR'S ORGANIZ ATION 07/16/2024 [facility] DATE CREATED AUTHOR AUTHOR'S ORGANIZ ATION 07/17/2024 [facility] DATE CREATED AUTHOR AUTHOR'S ORGANIZ ATION 08/02/2024 [facility] Ordered Prescriptions (unrec ognized section and content) [...] Discontinued 1505 (New Bag - Provider: Kaylan Mulligan, RN)1605 (Stopped - Provider: Kaylan Mulligan, RN) cefTRIAXone (ROCEPHIN) 1000 mg IVPB in 50 mL D5W minibag (CANCELED) 1,000 mg, IntraVENous, EVERY 24 HOURS, First dose on Mon09/28/21 at 1400, Until Discontinued 1331 (New Bag - Provider: Mary Wong)1401 (Stopped - Provider: Kaylan Mulligan, RN) heparin (porcine) injection 5,000 Units 5,000 Units, SubCUTAneous, EVERY 8 HOURS SCHEDULED (3 times per day), First dose on Mon09/28/21 at 1400 0600 (Automatically Held - Provider: Terrance Smalls PA-C)1400 (Automatically Held - Provider: Terrance Smalls PA-C)181 (Unheld by provider - Provider: Guido Serna DO)210 (Given - Provider: Danica Platt RN) 0609 (Given - Provider: Danica Platt RN)1510 (Given - Provider: Li Phelan RN)2245 (Given - Provider: Chinyere Aquino RN) 0556 (Given - Provider: Will Ro RN)1400 (Due - Provider: Guido Serna DO)2200 (Due - Provider: Guido Serna DO) insulin glargine (LANTUS) injection vial 20 Units 20 Units, SubCUTAneous, NIGHTLY, First dose on Mon10/01/21 at 2100 2058 (Given - Provider: Danica Platt RN) 210 (Given - Provider: Will Ro RN) 2100 (Due) insulin lispro (HUMALOG) [...] Provider: Mary Wong)1743 (Given - Provider: Mary Wong)210 (Given - Provider: Danica Platt RN) 0807 (Not Given - Provider: Li Phelan RN - Reason: Order parameters not met - Comment: BS 119)1118 (Not Given - Provider: Li Phelan RN - Reason: Order parameters not met - Comment: BS 122)1754 (Not Given - Provider: Li Phelan RN - Reason: Order parameters not met - Comment: BS 131)2105 (Given - Provider: Will Ro RN) 0652 (Not Given - Provider: Will Ro RN - Reason: Order parameters not [...] IntraVENous, at 50 mL/hr, CONTINUOUS, Starting on Joaquina 09/30/21 at 1515 0850 (New Bag - Provider: [...] RT (PRN), Wheezing, Starting on Mon10/01/21 at 4759 2128 (Given - Provider: Azra Little EDUCATIONAL PROGRAMMING DIRECTOR) dextrose 5 % and 0.45 % sodium [...] further dilute if GI adverse effects occur. 112 (See Alternative - Provider: Danica Platt RN)1742 (See Alternative - Provider: Mary Wong) potassium chloride (KLOR-CON M) extended release tablet 40 mEq(Linked Group 1) 40 mEq, Oral, PRN, Per Potassium Replacement Protocol, Starting on Mon09/30/21 at 1607, May give oral solution if patient unable to tolerate tablet K Lab Replacement Action 3.1-3.5 40 Meq ORAL x 1 2.7-3.0 Refer to IV replacement protocol <2.7 Refer to IV replacement protocol Recheck K level in AM Protocol not for use in Patients with CrCl<30ml/min 112 (Given - Provider: Danica Platt RN - Comment: K 3.5)1742 (Given - Provider: Mary Wong) potassium chloride 10 mEq/100 mL IVPB (Peripheral Line)(Linked Group 1) 10 mEq, IntraVENous, at 100 mL/hr, PRN, Per Potassium Replacement Protocol, Starting on Mon09/30/21 at 1607, K Lab Replacement Action 2.7-3.0 [...] Replacement Protocol, Starting on Mon09/30/21 at 1607
Administer as alternative if patient unable to tolerate oral tablet. K Lab R [facility] ement Action 3.1 to 3.5 40 mEq [...] Replacement Protocol, Starting on Mon09/30/21 at 1607
K Lab Replacement Action 2.7-3.0 [...]
Care Teams (unrecognized sec tion and content) Scientific Investigator Relationship Specialty Start Date End Date Diaz Betts MD [address] [place] [address] PCP - General Family Medicine 09/28/21 Scientific Investigator Relationship Specialty Start Date End Date Diaz Betts MD [address] [place] [address] PCP - General Family Medicine 09/24/21 Scientific Investigator Relationship Specialty Start Date End Date Diaz Betts MD [address] [place] [address] PCP - General Family Medicine 09/25/23 Scientific Investigator Relationship Specialty Start Date End Date Diaz Betts MD [address] [place] [address] PCP - General Family Medicine 09/25/23 Scientific Investigator Relationship Specialty Start Date End Date Diaz Betts MD [address] [place] [address] PCP - General Family Medicine 09/24/21 Scientific Investigator Relationship Specialty Start Date End Date Diaz Betts MD [address] [place] [address] PCP - General Family Medicine 09/24/21 Scientific Investigator Relationship Specialty Start Date End Date Diaz Betts MD [address] [place] [address] PCP - General Family Medicine 09/24/21 Scientific Investigator Relationship Specialty Start Date End Date Diaz Betts MD [address] [place] [address] PCP - General Family Medicine 09/24/21 Scientific Investigator Relationship Specialty Start Date End Date Diaz Betts MD [address] [place] [address] PCP - General Family Medicine 09/24/21 Scientific Investigator Relationship Specialty Start Date End Date Diaz Betts MD [address] [place] [address] PCP - General Family Medicine 09/24/21 Scientific Investigator Relationship Specialty Start Date End Date Diaz Betts MD [address] [place] [phone] PCP - General Family Medicine 09/25/23 Scientific Investigator Relationship Specialty Start Date End Date Diaz Betts MD [address] [place] [address] PCP - General Family Medicine 09/25/23 Scientific Investigator Relationship Specialty Start Date End Date Diaz Betts MD [address] [place] [address] PCP - General Family Medicine 05/28/24 Scientific Investigator Relationship Specialty Start Date End Date Diaz Betts MD [address] [place] [address] PCP - General Family Medicine 05/28/24 Scientific Investigator Relationship Specialty Start Date End Date Diaz Betts MD [address] [place] [address] PCP - General Family Medicine 05/28/24 Scientific Investigator Relationship Specialty Start Date End Date Diaz Betts MD [address] [place] [address] PCP - General Family Medicine 09/25/23 Scientific Investigator Relationship Specialty Start Date End Date Diaz Betts MD [address] [place] [address] PCP - General Family Medicine 09/25/23 Scientific Investigator Relationship Specialty Start Date End Date Diaz Betts MD [address] [place] [address] PCP - General Family Medicine 06/28/24 Scientific Investigator Relationship Specialty Start Date End Date Diaz Betts MD [address] [place] [address] PCP - General Family Medicine 06/28/24 Scientific Investigator Relationship Specialty Start Date End Date Diaz Betts MD [address] [place] [address] PCP - General Family Medicine 06/28/24 Scientific Investigator Relationship Specialty Start Date End Date Diaz Betts MD [address] [place] [address] PCP - General Family Medicine 06/28/24 Scientific Investigator Relationship Specialty Start Date End Date Diaz Betts MD [address] [place] [address] PCP - General Family Medicine 06/28/24 Scientific Investigator Relationship Specialty Start Date End Date Diaz Betts MD [address] [place] [address] PCP - General Family Medicine 09/25/23 Scientific Investigator Relationship Specialty Start Date End Date Diaz Betts MD [address] [place] [address] PCP - General Family Medicine 09/25/23 Scientific Investigator Relationship Specialty Start Date End Date Diaz Betts MD [address] [place] [address] PCP - General Family Medicine 09/25/23 Scientific Investigator Relationship Specialty Start Date End Date Diaz Betts MD [address] [place] [address] PCP - General Family Medicine 06/28/24 Scientific Investigator Relationship Specialty Start Date End Date Diaz Betts MD [address] [place] [address] PCP - General Family Medicine 09/25/23 Scientific Investigator Relationship Specialty Start Date End Date Diaz Betts MD [address] [place] [address] PCP - General Family Medicine 09/25/23 Reason for Visit (unrecogniz ed section and content) Reason Comments Post-op Reason Comments Amenorrhea Reason Comments Cough Denies Shortness of Breath Denies Wheezing Denies Specialty Diagnoses / Procedures Referred By Kasey henderson Referred To Contact Pulmonary Medicine Diagnoses Mediastinal lymphadenopathy Angela Witt MD [address] [employer] [address] [place] [address] [facility] Pul Sleep Med [address] [address] Referral ID Status Reason Start Date Expiration Date Visits Requested Visits Authorized [id number] Pending Review Specialty Services Required 11/09/2023 11/08/2024 1 1 Reason Onset Date Comments medical clearance 06/03/2024 Reason Comments Follow-up Mediastinal lymphade nopathyCT: 04/23/2024On 2Lnc of O2 on exertion, on 3Lnc of O2 at nightArrived on 3Lnc of O2 Reason Onset Date Comments Cardiac Cath 06/20/2024 Reason Comments Wound Check S/P Cath 06/26/24 Reason Comments Follow-up EST PT F/U CATH DONE L/S LLD SCHED W/PT Reason Comments Follow-up Reason Onset Date Comments Med Refill 07/29/2024 Reason Onset Date Comments CRITICAL LAB 07/30/2024 Reason Onset Date Comments Abnormal Lab 07/30/2024 Reason Onset Date Comments Med Refill 08/05/2024 Reason Comments Follow-up [place] [facility] f/UP FOR RECORDS PERTAINING TO PATIENTS WHO ARE [...] BE BASED ON THE PRIMARY CLINICAL RECORDS. [facility]. provides no warranty or guarantee of the accuracy or completeness of information in this document.
[2024-08-12 23:06] LABS: Age Gdln ACOG Testing Note (.); HPV Aptima Negative (Negative); IGP, Aptima HPV, rfx 16/18,45 Note (.)
== END 2024-08-06 20:35 | disposition home or self-care (01) ==
LOC: LAB 20:34
PROVIDERS: PCP Family Medicine; Visit Provider Obstetrics & Gynecology
DX: Z01.419 Encounter for gynecological examination (general) (routine) without abnormal findings (principal)
CPT/HCPCS: 87624; 88175

== ENCOUNTER 2025-03-04 12:22 | Outpatient (OUT) | payer MEDICAID, SELFPAY ==
--- NOTE | 2025-03-04 12:25 | MR_ITS ---
[address] [address] Patient Name: YAMILA LOZADA MRN: [id number] date: 1980 Sex: F Assigned Patient Location: MRI Current Patient Location: MRI Accession/Order Number: [id number] Exam Date: 03/04/2025 15:15 Report Date: 03/04/2025 15:29 At the request of: SHAMA KAPLAN Procedure: MR knee LT wo con MRI of the leftKnee without contrast TECHNIQUE: Multiplanar T1 and T2-weighted imaging of the knee obtained without contrast HISTORY: Acute left knee pain. Popping sensation. Unable to extend knee. COMPARISON:None BONE MARROW: No infiltrative changes. BONE MARROW EDEMA: None FRACTURE: None BONE TUMOR: None BONY ALIGNMENT: Adequate DEGENERATION: No significant spurring or joint space narrowing. JOINT EFFUSION: Small joint effusion MUSCLES: Unremarkable SOFT TISSUES: Unremarkable POPLITEAL CYST: None ANTERIOR CRUCIATE LIGAMENT: Intact POSTERIOR CRUCIATE LIGAMENT: Intact LATERAL COMPARTMENT: LATERAL MENISCUS: Increased T1 signal intensity within the substance of the lateral meniscus. May represent mucoid degeneration or intrasubstance tear.. No definite articular surface tear. LATERAL ARTICULAR CARTILAGE: Intact. No osteochondral defect. No subcuticular bone marrow edema. PROXIMAL TIBIOFIBULAR JOINT: Intact POSTERIOR LATERAL COMPARTMENT: Intact lateral collateral ligament complex. Intact biceps femoris tendon. Intact popliteus tendon. COMMON PERONEAL NERVE: Intact MEDIAL COMPARTMENT: MEDIAL MENISCUS: Increased T1 signal intensity within the substance of the meniscus. Consideration for mucoid degeneration versus intrasubstance tear. No definite articular surface tear. MEDIAL ARTICULAR SURFACE: No chondromalacia. No subarticular bone marrow edema. POSTERIOR MEDIAL COMPARTMENT: Medial collateral ligament complex intact. The semimembranosus tendon intact. No ramp lesion of the posterior horn of medial meniscus present. PATELLOFEMORAL COMPARTMENT: PATELLOFEMORAL ARTICULAR CARTILAGE: Patellar chondromalacia. Heterogeneous changes of the articular cartilage. No underlying bone marrow edema. ANTERIOR LIGAMENTS: Patellar ligament and quadriceps tendon are intact. MR/MR knee LT wo con IMPRESSION: Increased T1 signal changes within the substances of the menisci bilaterally. May represent mucoid degeneration. Additional consideration for intrasubstance tear. No Articular surface tear. Intact ACL and PCL. Small joint effusion. Patellar chondromalacia. Impression dictated by: Gallito Torres M.D. 03/04/2025 3:29 PM Dictation Location: [place] [address] Electronically authenticated by: [id number] Y Date: 03/04/2025 15:29
== END 2025-03-04 12:23 | disposition home or self-care (01) ==
LOC: MRI 12:22
PROVIDERS: PCP Family Medicine; Visit Provider Personal Emergency Response Attendant
DX: M23.92 Unspecified internal derangement of left knee (principal); M25.462 Effusion, left knee
CPT/HCPCS: 73721

== ENCOUNTER 2025-04-24 13:11 | Outpatient (OUT) | payer MEDICAID, SELFPAY ==
--- OUTSIDE RECORDS SUMMARY | 2025-04-10 14:30 | XMS_ITS | Encounter Summary ---
Author Organization [facility] Address [address] [place] [address] Care Team Providers Care Aboriginal Community Council Member Name Role Phone Diaz Dalton MD Primary Care Provider [phone] Reason for Visit * Consultation (Routine) - Authorized Specialty Diagnoses / Procedures Referred By Kasey t Referred To Contact Physical Therapy Diagnoses Acute pain of left knee Procedures HI OFFICE/OUTPATIENT NEW HIGH MDM 60 MINUTES Jr. Harinder Jackson DO [address] [place] [address] Phone: tel: fax: Shakila Lee PT Referral ID Status Reason Start Date Expiration Date Visits Requested Visits Authorized [id number] Authorized Consult and Treat 03/14/2025 09/03/2025 30 30 Encounter Details Date Type Department Care Team ([facility] Contact Info) Description 04/10/2025 2:30 PM EDT Treatment [facility] [address] [facility] [address] [place] [address] Puma Kelly, VANDANA Acute pain of left knee (Primary Dx) Social History Tobacco Use Types Packs/Day Years Used Date Smoking Tobacco: Never Smokeless Tobacco: Never Alcohol Use Standard Drinks/Week Comments Never 0 (1 standard drink = 0.6 oz pure alcohol) Caffeine: 1-2 cups/day , mountain dew occasionally Comments No Sex and Gender Information Value Date Recorded Sex Assigned at Not on file Legal Sex Female 6:38 PM EDT Gender Identity Not on file Sexual Orientation Not on file documented as of this encounter Progress Notes * Puma Kelly, YARD MOTOR OPERATOR - 04/10/2025 2:30 PM EDT Images from the original note were not included. Physical Therapy Treatment Visit Patient Name: Carissa Miller Today's Date: 04/10/2025 Encounter Diagnoses Name Primary? Acute pain of left knee Yes Visit number: 4 Timed Code Treatment Minutes: 30 minutes Total Treatment Time: 50 minutes Time In: 1440 Time Out: 1530 History: Pt states left knee has been hurting for a couple of weeks now. States every time she walks she feels her knee popping. Was seen by ortho and is to start PT. Pt states left knee is swelled up some. Icing at home for pain. Having a hard time sleeping due to pain. Will return to ortho on 04/22/25 and will decide if surgery is needed or not. Precautions: [place] Subjective: Pt reports knee has been popping and is associated with pain. Pt reports feeling therapy is aggravating her knee, however the MD wants her to continue. Arrived 10 minutes late due to ride running behind. Pain: 8/10, Left knee Objective: PT Evaluation (03/21/2025) LEFT KNEE AROM: 0 to 120 degrees in supine PROM: 2 degrees hyperextension, 122 degrees flexion MMT: left hip 4/5, quad 4-/5 due to pain Observation: Pt with moderate genu valgus bilateral in standing; severe pes planus in standing Palpation: moderate to severe tenderness medial joint line, moderate tenderness medial and lateral patella Special Test: no laxity with ligament testing; no increase pain with Marianne testing; pain with patellar grind Functional: TUG without use of device: 16.51 seconds Treatment: Education: HEP education with demonstration, Educated on Eval Findings and POC Manual Therapy: Passive ROM, Joint mobilization, Soft Tissue Mobilization, Myofascial Release, Muscle Energy Technique, Neural Mobilization, Myofascial Cupping, Dry Needling, IASTM, and Scar mobilization as needed. Therapeutic Exercise: (30 minutes) Strength, Endurance, Flexibility, ROM, HEP, Neural Mobilization,Power, and Core Stability as needed. Pt performed and instructed in exercises to improve hip and LE strength to improve functional tolerance. Therapeutic Activity: Exercises to improve dynamic activities, functional tasks, functional mobility to return to prior activity level as needed. Neuromuscular re-education: Balance Training, Muscle Facilitation, Dynamic Stability, Core Stabilization, and Blood Flow Restriction Training (BFRT) as needed. Modalities: (15 minutes) Heat, Ice, Electrical Stimulation, Ultrasound, Cervical Mechanical Traction, Lumbar Mechanical Traction, Iontophoresis, and Fluidotherapy as needed. ESU w/ CP to left knee in supine at end of session for pain management. Assessment: Pt is 44 y/o female with complaints of severe left knee pain. ROM of left knee is WFL. Moderate genu valgus noted in standing with severe pes planus. Reduced intensities of exercises to keep within her tolerance. Deferred stretches in effort not to reduce her hypermobility (genu recurvatum). Cues to reduce knee hyperextension during stretches. Pt reported a slight reduction in pain following exercises, 03/13. Pt will benefit from further PT. Outcome Measure: Lower Extremity Functional Scale (LEFS): Rehab Diagnosis: left knee pain and weakness Short Term Goal: To be met in 2 weeks Goal 1: Pt to be instructed in home exercise program. Machine Operator Assistant Goals: To be met in 10 weeks Goal 1: Pt to report independence and compliance with home program. Goal 2: Pt to achieve 4+/5 strength left knee flexion and extension to assist with functional mobility and ADL's. Goal 3: Pt to ascend 6 inch step with pain no greater than 2/10 in left knee. Goal 4: Pt to have only mild tenderness with palpation to left medial knee indicating improved tissue quality. Goal 5: Pt to score no less than 35/80 on LEFS indicating improved QOL. Pt will benefit from skilled PT for 2-3x/week from 03/21/2025 to 06/13/2025 to address the above impairments. I hereby deem this POC medically necessary. Please sign below. Date: Cosigned by Shakila Lee PT at 04/11/2025 11:45 AM EDT documented in this encounter Plan of Treatment Upcoming Encounters Date Type Department Care Team (Late st Contact Info) Description 05/22/2025 1:30 PM EDT Office Visit [facility] [address] [place] [address] Diaz Dalton MD [address] [place] [address] 05/26/2025 1:20 PM EDT Consult [facility] [address] [place] [address] Feliz Benz, DO [address] [facility] [address] [place], [place] [id number] 06/03/2025 1:30 PM EDT Office Visit [facility] [address] [facility] [place] [phone] Cholo Strong, PA [address] [facility] [place] [address] 08/19/2025 2:00 PM EST Office Visit [facility] [address] [place] [address] Feliz Benz, DO [address] [facility] [address] [place], [place] [id number] documented as of this encounter Visit Diagnoses Diagnosis Acute pain of left knee- Primary documented in this encounter Care Teams Aboriginal Community Council Member Relationship Specialty Start Date End Date Diaz Dalton MD [address] [place] [address] PCP - General Family Medicine 09/25/23 documented as of this encounter
--- OUTSIDE RECORDS SUMMARY | 2025-04-14 13:40 | XMS_ITS | Encounter Summary ---
Author Organization [facility] Address [address] [place] [address] Care Team Providers Care Licensing Director Name Role Phone Diaz Dalton MD Primary Care Provider [phone] Reason for Visit * Reason Comments Left Ovarian Pain Encounter Details Date Type Department Care Team ([facility] Contact Info) Description 04/14/2025 1:40 PM EDT Office Visit [facility] [address] [facility] [place] [address] Feliz Benz DO [address] [facility] [address] [place], [facility]11 Pelvic pain in female (Primary Dx); Nausea; Genital warts Social History Tobacco Use Types Packs/Day Years [...] on file documented as of this encounter Last Filed Vital Signs Vital Sign Reading Time Taken Comments Blood Pressure 122/90 04/14/2025 1:38 PM EDT Pulse - - Temperature - - Respiratory Rate - - Oxygen Saturation - - Inhaled Oxygen Concentration - - Weight 93.8 kg (206 lb 12 oz) 04/14/2025 1:38 PM EDT Height - - Body Mass Index 39.07 02/10/2025 1:23 PM EDT documented in this encounter Progress Notes * Romana Poole NP - 04/14/2025 1:40 PM EDT Reason for Appointment: Patient ID: Carissa Miller is a 44 y.o. female who presents for Left Ovarian Pain Patient presents today for Acute Visit. MEDICATIONS Current Outpatient Medications Medication Instructions acyclovir (Zovirax) 400 MG tablet Every 12 hours albuterol HFA 90 mcg/act inhaler 2 puffs, Inhalation, Every 4 hours PRN atorvastatin (LIPITOR) 40 mg, Oral, Daily Black Cohosh (Black Cohosh Hot Flash Relief) 40 MG capsule 1 each, Oral, Daily Blood Glucose Monitoring Suppl (True Metrix Meter) w/Device kit Test daily buPROPion XL (WELLBUTRIN XL) 300 mg, Oral, Daily cholecalciferol (Vitamin D-3) 50 MCG (1999 UT) tablet Oral, Daily citalopram (CELEXA) 40 mg, Oral, Daily Continuous Glucose Service Supervisor (FreeStyle Crystal 3 [place]) device 1 Application, Does not apply, Continuous Continuous Glucose Sensor (FreeStyle Crystal 3 Sensor) [facility] USE TO MONITOR BLOOD SUGAR DIRECTED. CHANGE SENSOR EVERY 14 DAYS. Continuous Glucose Sensor (FreeStyle Crystal 3 Sensor) [facility] 1 Units, Does not apply, Weekly cyclobenzaprine (FLEXERIL) 10 mg, Oral, 3 times daily PRN dicyclomine (BENTYL) 20 mg, Oral, 4 times daily PRN empagliflozin (JARDIANCE) 25 mg, Oral, Daily fluconazole (DIFLUCAN) 150 mg, Once furosemide (LASIX) 40 mg, Oral, Daily insulin aspart FlexPen (NovoLOG) 100 UNIT/ML pen INJECT SUBCUTANEOUSLY THREE TIMES A DAY PER SLIDING SCALE; *30 TO 40 UNITS DAILY* insulin pen needle (Droplet Pen Lazbuddie) 32G x 4 mm [facility] Use as instructed lamoTRIgine (LAMICTAL) 200 mg, Oral, Nightly lanolin (Lansinoh) cream Topical, As needed lisinopril 2.5 mg, Oral, Daily LORazepam (ATIVAN) 1 mg, Oral, 3 times daily PRN metoprolol tartrate (Lopressor) 50 MG tablet nabumetone (RELAFEN) 500 mg, Oral, 2 times daily PRN ofloxacin (Ocuflox) 0.3 % ophthalmic solution INSTILL 1 DROP INTO AFFECTED EYE X4/DAY DIRECTED START 3DAYS PRIOR TO SX,THEN IMMEDIATELY FOLLOWING SX EVERY HOUR W/A,THEN X4/DAY NEXT DAY TIL APPT *04/14* ondansetron ODT (Zofran-ODT) [address] 1 TABLET ON TONGUE AND ALLOW TO DISSOLVE EVERY 6 HOURS NEEDED FOR NAUSEA OR VOMITING oxybutynin XL (DITROPAN-XL) 15 mg, Daily pantoprazole (ProtoNix) 40 MG EC tablet Take 1 tablet by mouth once daily pioglitazone (Actos) 45 MG tablet prazosin (Minipress) 2 MG capsule prednisoLONE acetate (Pred-Forte) 1 % ophthalmic suspension INSTILL 1 DROP IN AFFECTED EYE EVERY HOUR WHILE AWAKE AFTER SURGERY THEN NEXT DAY 4 TIMES DAILY UNTIL APPOINTMENT *EFFECTIVE 04/14* Semglee 20 Units, Subcutaneous, 2 times daily SUMAtriptan (IMITREX) 25 mg, Oral, As needed traZODone (Desyrel) 150 MG tablet Every 24 hours Trelegy Ellipta 200-62.5-25 MCG/ACT aerosol powder 1 puff, Daily RT Trulicity 0.75 MG/0.5ML solution auto-injector INJECT 0.75 MG SUBCUTANEOUSLY ONCE WEEKLY ALLERGIES Allergies Allergen Reactions Sulfamethoxazole-Trimethoprim Hives and Itching PROBLEMS Active Ambulatory Problems Diagnosis Date Noted Allergic rhinitis due to allergen 10/01/2009 JOHN (generalized anxiety disorder) 10/01/2009 Contracture, unspecified ankle 04/06/2023 Chronic heart failure with preserved ejection fraction (HFpEF) ([facility]) 04/06/2023 Equinus deformity of left foot 04/06/2023 Gastroesophageal reflux disease 04/06/2023 Genital warts 04/06/2023 Hot flashes due to menopause 04/06/2023 Type 2 diabetes mellitus with microalbuminuria, with long-term current use of insulin ([facility]) 04/06/2023 Internal derangement of left shoulder 04/06/2023 Irritable bowel syndrome with diarrhea 04/06/2023 Mild developmental delay 09/29/2021 Migraine without aura and without status migrainosus, not intractable 04/06/2023 Mild episode of recurrent major depressive disorder 04/06/2023 Class 3 severe obesity due to excess calories with serious comorbidity and body mass index (BMI) of40.0 to 44.9 in adult ([facility]) 11/21/2022 Type 2 diabetes mellitus with polyneuropathy ([facility]) 06/10/2021 Obstructive sleep apnea syndrome 09/30/2009 Osteoarthritis of knee 04/06/2023 Overactive bladder 04/06/2023 Panic disorder without agoraphobia 11/12/2009 Dyslipidemia 04/22/2010 Spondylosis without myelopathy 08/10/2010 Obesity hypoventilation syndrome ([facility]) 01/04/2024 Benign essential hypertension 01/04/2024 Right carpal tunnel syndrome 01/04/2024 Type 2 diabetes mellitus with hyperglycemia, with long-term current use of insulin ([facility]) 02/12/2024 Moderate persistent asthma without complication ([facility]) 02/19/2024 Pulmonary hypertension ([facility]) 08/06/2024 Dehydration 10/28/2024 Nausea & vomiting 10/28/2024 Encounter for long-term (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 medications 02/10/2025 Resolved Ambulatory Problems Diagnosis Date Noted Acute kidney injury (DREW) with acute tubular necrosis (ATN) 09/30/2021 Acute pain of left shoulder 04/06/2023 Shoulder joint pain 04/06/2021 Carpal tunnel syndrome of left wrist 04/06/2023 Convulsions in the ([facility]) 09/30/2009 Cubital tunnel syndrome on left 11/04/2022 Fecal incontinence 06/22/2016 High anion gap metabolic acidosis 09/30/2021 Hyperglycemia 03/01/2019 Mild intellectual disability 09/30/2009 Other chronic pain 04/06/2023 Pneumonia due to infectious organism 09/29/2021 Poorly controlled diabetes mellitus ([facility]) 08/10/2015 Normal gynecologic examination 06/09/2015 Missed period 04/06/2023 DKA, type 1, not at goal ([facility]) 09/27/2021 Type 2 diabetes mellitus ([facility]) 09/30/2009 Cavitary lesion of lung 08/10/2023 Other chest pain 08/10/2023 Hypoxia 01/04/2024 Chronic hypoxic respiratory failure ([facility]) 02/19/2024 Acute pain of right knee 05/29/2024 Past Medical History: Diagnosis Date Ankle fracture Anxiety and depression At low risk for fall Bilateral leg edema Chest pain, central Chronic left shoulder pain Chronic pain Chronic respiratory failure (HCC) Epilepsy (HCC) GERD (gastroesophageal reflux disease) History of being hospitalized History of medical problems Hyperlipidemia Insomnia, persistent MDD (major depressive disorder), recurrent episode, mild Morbid obesity with BMI of 40.0-44.9, adult ([facility]) Nocturnal hypoxemia Nonsmoker OAB (overactive bladder) Obesity JOSE M (obstructive sleep apnea) Postoperative urinary retention Primary osteoarthritis of left knee Seasonal allergies Type 2 diabetes mellitus with diabetic polyneuropathy, with long-term current use of insulin ([facility]) Type 2 diabetes mellitus without complication ([facility]) Vitamin D deficiency HISTORY PAST MEDICAL HISTORY SOCIAL HISTORY Past Medical History: Diagnosis Date Ankle fracture Anxiety and depression At low risk for fall Bilateral leg edema Chest pain, central Chronic left shoulder pain Chronic pain Chronic respiratory failure ([facility]) Dyslipidemia Epilepsy ([facility]) Childhood epilepsy JOHN (generalized anxiety disorder) Genital warts GERD (gastroesophageal reflux disease) History of being hospitalized pneumonia, diabetes, infection [10/29/21-11/05/21] History of medical problems mild mental retardation Hyperlipidemia Insomnia, persistent Irritable bowel syndrome with diarrhea MDD (major depressive disorder), recurrent episode, mild Migraine without aura and without status migrainosus, not intractable Morbid obesity with BMI of 40.0-44.9, adult ([facility]) Nocturnal hypoxemia Nonsmoker OAB (overactive bladder) Obesity JOSE M (obstructive sleep apnea) Postoperative urinary retention Primary osteoarthritis of left knee Seasonal allergies Type 2 diabetes mellitus with diabetic polyneuropathy, with long-term current use of insulin ([facility]) Type 2 diabetes mellitus with hyperglycemia, with long-term current use of insulin ([facility]) Type 2 diabetes mellitus without complication ([facility]) Vitamin D deficiency Social History Tobacco Use Smoking status: Never Smokeless tobacco: Never Substance Use Topics Alcohol use: Never Comment: Caffeine: 1-2 cups/day , mountain dew occasionally Drug use: Never FAMILY HISTORY Family History Problem Relation Name Age of Onset Hypertension Mother Asthma Mother extrinsic Alzheimer's disease Father Diabetes Father Hypertension Father Hyperlipidemia Father Stroke Father No Known Problems Sister No Known Problems Brother SURGICAL HISTORY Past Surgical History: Procedure Laterality Date ADENOIDECTOMY CARPAL TUNNEL RELEASE Left 09/25/2023 Dr Miller CARPAL TUNNEL RELEASE Right 06/17/2024 Dr Miller CHOLECYSTECTOMY 2009 CT ANGIOGRAM HEART CORONARY 09/27/2021 CT ANGIOGRAM TAVR 09/27/2021 CT ANGIOGRAM HEART CORONARY 08/08/2023 CT ANGIOGRAM HEART CORONARY 08/08/2023 LAPAROSCOPIC TUBAL LIGATION W/ FILCHIE CLIPS 12/29/2017 LAPAROSCOPY DIAGNOSTIC / BIOPSY / ASPIRATION / LYSIS 12/29/2017 Diagnostic laparoscopy LAPAROTOMY OVARIAN CYSTECTOMY 03/31/2023 ID ARTHROCENTESIS ASPIR&/INJ MAJOR JT/BURSA W/O US Right Arthrocentesis of the right knee joint REQUEST FOR SCREENING COLONOSCOPY 04/01/2019 Colonoscopy, screening SALPINGECTOMY Bilateral 03/31/2023 FERREIRA WART REMOVAL 08/14/2015 genital wart removal TONSILLECTOMY REVIEW OF SYSTEMS Review of Systems: Review of Systems Constitutional: Negative. HENT: Negative. Eyes: Negative. Respiratory: Negative. Cardiovascular: Negative. Gastrointestinal: Negative. Genitourinary: Positive for pelvic pain. Musculoskeletal: Negative. Skin: Negative. Perineal warts would like them to be removed Neurological: Negative. All other systems reviewed and are negative. Hematological: Negative. Endocrine: Negative. Allergic/Immunologic: Negative. OBJECTIVE Objective: Physical Exam Constitutional: Appearance: Normal appearance. She is well-developed. Cardiovascular: Rate and Rhythm: Normal rate and regular rhythm. Pulmonary: Effort: Pulmonary effort is normal. Breath sounds: Normal breath sounds. Abdominal: General: Bowel sounds are normal. There is no distension. Palpations: Abdomen is soft. Tenderness: There is no abdominal tenderness. There is no guarding or rebound. Musculoskeletal: General: No swelling. Normal range of motion. Right lower leg: No edema. Left lower leg: No edema. Neurological: Mental Status: She is alert and oriented to person, place, and time. Skin: General: Skin is warm and dry. Psychiatric: Mood and Affect: Mood normal. Behavior: Behavior normal. Vitals and nursing note reviewed. Exam conducted with a molecular genetic pathologist present. Vitals: Estimated body mass index is 39.07 kg/m?? as calculated from the following: Height as of 02/10/25: 5' 1 . Weight as of this encounter: 206 lb 12 oz. BP: 122/90 No LMP recorded. Patient is premenopausal. ASSESSMENT & PLAN ICD-10-CM 1. Pelvic pain in female R10.2 Patient with complaints of right sided ovarian pain that has been sharp will obtain ultrasound and complete and diagnostic lab and removal of genital warts. Patient to setup date with Rice Farm[employer] prior to leaving office today. Documented by Romana Poole NP on behalf of: Feliz Benz DO documented in this encounter Plan of Treatment Upcoming Encounters Date Type Department Care Team (Late st Contact Info) Description 05/22/2025 1:30 PM EDT Office Visit [facility] [address] [place] [address] Diaz Dalton MD [address] [place] [address] 05/26/2025 1:20 PM EDT Consult [facility] [address] [place] [address] Feliz Benz DO [address] [place], [place] [id number] 06/03/2025 1:30 PM EDT Office Visit [facility] [address] [place] [phone] Cholo Strong PA [address] [place] [phone] 08/19/2025 2:00 PM EST Office Visit [facility] [address] [place] [address] Feliz Benz DO [address] [place], [facility]11 Scheduled Orders Name Type Priority Associated Diagnoses Orde r Schedule US Pelvis w/ TV Imaging Routine Pelvic pain in female Expected: 04/14/2025, Expires: 10/15/2025 documented as of this encounter Visit Diagnoses Diagnosis Pelvic pain in female- Primary Unspecified symptom associated with female genital organs Nausea Nausea alone Genital warts Condyloma acuminatum documented in this encounter Care Teams Licensing Director Relationship Specialty Start Date End Date Diaz Dalton MD [address] [place] [address] PCP - General Family Medicine 09/25/23 documented as of this encounter
--- OUTSIDE RECORDS SUMMARY | 2025-04-22 10:00 | XMS_ITS | Encounter Summary ---
Author Organization [facility] Address [address] [place] [address] Care Team Providers Care Cutter Helper Name Role Phone Diaz Dalton MD Primary Care Provider [phone] Reason for Visit * Reason Comments Pain Encounter Details Date Type Department Care Team ([facility] Contact Info) Description 04/22/2025 10:00 AM EDT Office Visit [facility] [address] [place] [phone] Jr. Harinder Jackson, [address] [place], [place] [id number] Social History Tobacco Use Types Packs/Day Years [...] on file documented as of this encounter Plan of Treatment Upcoming Encounters Date Type Department Care Team ([facility] Contact Info) Description 05/22/2025 1:30 PM EDT Office Visit [facility] [address] [place] [address] Diaz Dalton MD [address] [place] [phone] 05/26/2025 1:20 PM EDT Consult [facility] [address] [facility] [place] [phone] Feliz Benz, [address] [place], [place] [phone] 06/03/2025 1:30 PM EDT Office Visit [facility] [address] [place] [address] Cholo Strong, PA [address] [place] [address] 08/19/2025 2:00 PM EST Office Visit [facility] [address] [place] [address] [place] [address] Feliz Benz, [address] [place], [place] [id number] documented as of this encounter Visit Diagnoses Not on filedocumented in this encounter Care Teams Cutter Helper Relationship Specialty Start Date End Date Diaz Dalton MD [address] [place] [address] PCP - General Family Medicine 09/25/23 documented as of this encounter
--- OUTSIDE RECORDS SUMMARY | 2025-04-24 13:14 | XMS_ITS | Encounter Summary ---
Author Organization [id number] [address] [place] [address] Care Team Providers Care Collar Starcher Name Role Phone Diaz Dalton MD Primary Care Provider [phone] Encounter Details Date Type Department Care Team ([facility] Contact Info) Description 11/09/2023 Telephone [facility] [address] [facility] [address] [place] [address] Libby Finley MD [address] [facility] [place] [address] Social History Tobacco Use Types Packs/Day Years Used Date Smoking Tobacco: Never Smokeless Tobacco: Never Alcohol Use Standard Drinks/Week Comments Yes 0 (1 standard drink = 0.6 oz pur e alcohol) occasionally-once a month Social Connection and Isolat ion Panel [NHANES] Answer Date Recorded In a typical week, how many times do you talk on the phone with family, friends, or neighbors? More than three times a week 06/05/2023 How often do you get togethe r with friends or relatives? More than three times a week 06/05/2023 How often do you attend chur ch or buddhism services? Never 06/05/2023 Do you belong to any clubs o r organizations such as sabianism groups, unions, fraternal or athletic groups, or school groups? No 06/05/2023 How often do you attend meet ings of the clubs or organizations you belong to? Never 06/05/2023 Are you , , di vorced, , never , or living with a partner? 06/05/2023 AUDIT-C Answer Date Recorded Q1: How often do you have a drink containing alcohol? Never 06/05/2023 Q2: How many drinks containi ng alcohol do you have on a typical day when you are drinking? Patient does not drink Q3: How often do you have si x or more drinks on one occasion? Never 06/05/2023 Overall Financial Resource Strain (CARDIA) Answe r Date Recorded How hard is it for you to pa y for the very basics like food, housing, medical care, and heating? Not hard at all 06/05/2023 PHQ-2 Answer Date Recorded Total Score 4 06/05/2023 [facility] Dresher of Occupat ional Health - Occupational Stress Questionnaire Answer Date Recorded Do you feel stress - tense, restless, nervous, or anxious, or unable to sleep at night because your mind is troubled all the time - these days? Only a little 06/05/2023 Exercise Vital Sign Answer Date Recorde d On average, how many days pe r week do you engage in moderate to strenuous exercise (like a brisk walk)? 1 day 06/05/2023 On average, how many minutes do you engage in exercise at this level? 10 min 06/05/2023 PRAPARE - Transportation Answer Date Re corded In the past 12 months, has l ack of transportation kept you from medical appointments or from getting medications? No 10/2022 In the past 12 months, has l ack of transportation kept you from meetings, work, or from getting things needed for daily living? No 06/05/2023 Housing Instability Answer Date Recorde d Are you worried or concerned that in the next two months you may not have stable housing that you own, rent or stay in as a part of a household? No 06/05/2023 Childcare Answer Date Recorded Do problems getting child ca re make it difficult for you to work or study? No 06/05/2023 Employment Answer Date Recorded Do you need help finding a l al career center and/or a training program? No 06/05/2023 Hunger Screening Answer Date Recorded Within the past 12 months we worried whether our food would run out before we got money to buy more. Never True 11/09/2023 Within the past 12 months th e food we bought just didn't last and we didn't have money to get more. Never True 11/09/2023 Purpose - Life Answer Date Recorded I have a purpose and direction in my life. Stron gly Agree 06/05/2023 Comments No Sex and Gender Information Value Date Recorded Sex Assigned at Not on file Legal Sex Female 11:24 AM EDT Gender Identity Not on file Sexual Orientation Not on file documented as of this encounter Miscellaneous Notes * Telephone Encounter - Braeden Alberto - 11/09/2023 9:29 AM EST Called and left message- spot on hold with MT tomorrow, 11/09. PET done referred for ebus. documented in this encounter Plan of Treatment Upcoming Encounters Date Type Department Care Team (Late st Contact Info) Description 07/07/2025 9:30 AM EST Office Visit [facility] [address] [place] [phone] Adriane Woods, BEHAVIOR SPECIALIST-INSPECTOR [employer] [address] [place] [address] documented as of this encounter Visit Diagnoses Not on filedocumented in this encounter Additional Health Concerns Infection Onset Date Last Indicated Resolved Time COVID-19 Rule-Out 07/21/2024 07/21/2024 07/21/2024 6:08 PM EST Assessment Noted Time PHQ-9 Depression Total Score: 4 06/05/20 23 1:13 AM EDT documented as of this encounter Care Teams Collar Starcher Relationship Specialty Start Date End Date Diaz Dalton MD PCP - General Family Medicine 10/27/24 documented as of this encounter
--- OUTSIDE RECORDS SUMMARY | 2025-04-24 13:14 | XMS_ITS | Encounter Summary ---
Author Organization [facility] Address [id number] [address] [place] [address] Care Team Providers Care Straw Hat Machine Operator Name Role Phone Diaz Dalton MD Primary Care Provider [phone] Reason for Visit * Reason Comments Med Refill Encounter Details Date Type Department Care Team ([facility] Contact Info) Description 02/26/2025 Refill [facility] [address] [place] [facility] [place] [phone] Cristina Arrieta, DO [address] [facility] [address] [place] [address] Social History Tobacco Use Types Packs/Day Years Used Date Smoking Tobacco: Never Smokeless Tobacco: Never Alcohol Use Standard Drinks/Week Comments Not Currently 0 (1 standard drink = 0.6 oz pur e alcohol) [facility] Utilities Answer Date Recorded In the past 12 months has [employer], gas, oil, or water [employer] threatened to shut off services in your home? No 07/21/2024 Social Connection and Isolat ion Panel [NHANES] Answer Date Recorded In a typical week, how many times do you talk on the phone with family, friends, or neighbors? More than three times a week 12/20/2023 How often do you get togethe r with friends or relatives? More than three times a week 12/20/2023 How often do you attend chur ch or denominational services? Never 12/20/2023 Do you belong to any clubs o r organizations such as methodist groups, unions, fraternal or athletic groups, or school groups? No 12/20/2023 How often do you attend meet ings of the clubs or organizations you belong to? Never 12/20/2023 Are you , , di vorced, , never , or living with a partner? 12/20/2023 AUDIT-C Answer Date Recorded Q1: How often do you have a drink containing alcohol? Never 12/20/2023 Q2: How many drinks containi ng alcohol do you have on a typical day when you are drinking? Patient does not drink Q3: How often do you have si x or more drinks on one occasion? Never 12/20/2023 Overall Financial Resource Strain (CARDIA) Answe r Date Recorded How hard is it for you to pa y for the very basics like food, housing, medical care, and heating? Not hard at all 12/20/2023 PHQ-2 Answer Date Recorded Total Score 4 06/05/2023 [facility] - Occupational Stress Questionnaire Answer Date Recorded Do you feel stress - tense, restless, nervous, or anxious, or unable to sleep at night because your mind is troubled all the time - these days? Only a little 12/20/2023 Exercise Vital Sign Answer Date Recorde d On average, how many days pe r week do you engage in moderate to strenuous exercise (like a brisk walk)? 3 days 12/20/2023 On average, how many minutes do you engage in exercise at this level? 10 min 12/20/2023 PRAPARE - Transportation Answer Date Re corded In the past 12 months, has l ack of transportation kept you from medical appointments or from getting medications? No 07/05 In the past 12 months, has l ack of transportation kept you from meetings, work, or from getting things needed for daily living? No 07/21/2024 Housing Instability Answer Date Recorde d Are you worried or concerned that in the next two months you may not have stable housing that you own, rent or stay in as a part of a household? No 07/21/2024 Childcare Answer Date Recorded Do problems getting child ca re make it difficult for you to work or study? No 12/20/2023 Employment Answer Date Recorded Do you need help finding a [facility] career center and/or a training program? No 12/20/2023 Hunger Screening Answer Date Recorded Within the past 12 months we worried whether our food would run out before we got money to buy more. Never True 01/03/2025 Within the past 12 months th e food we bought just didn't last and we didn't have money to get more. Never True 01/03/2025 Purpose - Life Answer Date Recorded I have a purpose and direction in my life. Stron gly Agree 12/20/2023 Comments No Sex and Gender Information Value Date Recorded Sex Assigned at Not on file Legal Sex Female 11:24 AM EDT Gender Identity Not on file Sexual Orientation Not on file documented as of this encounter Miscellaneous Notes * Telephone Encounter - Stella Reyes RN - 02/26/2025 6:06 PM EDT Need to discuss additional refills with physician at office appt on 03-13-25 documented in this encounter Plan of Treatment Upcoming Encounters Date Type Department Care Team (Late st Contact Info) Description 07/07/2025 9:30 AM EST Office Visit [facility] [address] [place] [address] Adriane Woods, RAILROAD CAR PAINTER-POWDER COATER [address] [place] [address] documented as of this encounter Goals Goal Patient Goal Type Associated Problems Recent Progress Patient-Stated? Author Home with self care General Yes Stacey Smith, GEORGINA Note: Evaluation of progress towards goal: Patient plans to return home with self care. documented as of this encounter Visit Diagnoses Not on filedocumented in this encounter Additional Health Concerns Assessment Noted Time PHQ-9 Depression Total Score: 4 06/05/20 23 1:13 AM EDT documented as of this encounter Care Teams Straw Hat Machine Operator Relationship Specialty Start Date End Date Diaz Dalton MD PCP - General Family Medicine 10/27/24 documented as of this encounter
--- OUTSIDE RECORDS SUMMARY | 2025-04-24 13:14 | XMS_ITS | Encounter Summary ---
Author Organization [employer] Address [id number] [address] [place] [address] Care Team Providers Care Telecommunications Equipment Installer Name Role Phone Diaz Dalton MD Primary Care Provider [phone] Encounter Details Date Type Department Care Team (Late st Contact Info) Description 09/09/2024 Telephone [facility] General Surgery [address] [place] [phone] Gerri Doyle RMA Social History Tobacco Use Types Packs/Day Years Used Date Smoking Tobacco: Never Smokeless Tobacco: Never Alcohol Use Standard Drinks/Week Comments Not Currently 0 (1 standard drink = 0.6 oz pur e alcohol) [facility] Utilities Answer Date Recorded In the past 12 months has e electric, gas, oil, or water company threatened to shut off services in your [...] often do you attend chur ch or samaritan services? Never 12/20/2023 Do you belong to any clubs o r organizations such as christian groups, unions, fraternal or athletic groups, or [...] Answer Date Recorded Total Score 4 06/05/2023 [facility] [place] [facility] Occupat ional Health - Occupational Stress [...] Do you need help finding a l ocal career center and/or a training program? No 12/20/2023 Hunger Screening Answer Date Recorded Within the past 12 months we worried whether our food would run out before we got money to buy more. Never True 07/21/2024 Within the past 12 months th e food we bought just didn't last and we didn't have money to get more. Never True 07/21/2024 Purpose - Life Answer Date Recorded I have a purpose and direction in my life. Stron gly Agree 12/20/2023 Comments No Sex and Gender Information Value Date Recorded Sex Assigned at Not on file Legal Sex Female 11:24 AM EDT Gender Identity Not on file Sexual Orientation Not on file documented as of this encounter Miscellaneous Notes * Telephone Encounter - MOIZ Holloway - 09/09/2024 4:55 PM EST I called Carissa and left a message that there was a cancellation on 09/12/24. Her surgery isnow at 7:30 am with an arrival time of 6:10 am. documented in this encounter Plan of Treatment Upcoming Encounters Date Type Department Care Team (Late st Contact Info) Description 07/07/2025 9:30 AM EST Office Visit [facility] [address] [place] [address] Adriane Woods, FRANCHISE MANAGER-DIRECTOR OF MANUFACTURING [address] [place] [address] documented as of this encounter Goals Goal Patient Goal Type Associated Problems Recent Progress Patient-Stated? Author Home with self care General Yes Stacey Smith, RN Note: Evaluation of progress towards goal: Patient plans to return home with self care. documented as of this encounter Visit Diagnoses Not on filedocumented in this encounter Additional Health Concerns Assessment Noted Time PHQ-9 Depression Total Score: 4 06/05/20 23 1:13 AM EDT documented as of this encounter Care Teams Telecommunications Equipment Installer Relationship Specialty Start Date End Date Diaz Dalton MD PCP - General Family Medicine 10/27/24 documented as of this encounter
--- OUTSIDE RECORDS SUMMARY | 2025-04-24 13:14 | XMS_ITS | Encounter Summary ---
Author Organization [facility] [facility] Address [id number] [address] [place] [address] Care Team Providers Care Stamp Machine Servicer Name Role Phone Diaz Dalton MD Primary Care Provider [phone] Encounter Details Date Type Department Care Team (Late st Contact Info) Description 11/10/2023 Orders Only [facility] Pul[facility]/Sleep Medicine [address] [facility] [address] [place] [address] Racquel Christine LPN SOB (shortness of breath) (Primary Dx) Social History Tobacco Use Types [...] often do you attend chur ch or latter-day services? Never 06/05/2023 Do you belong to any clubs o r organizations such as congregational groups, unions, fraternal or athletic groups, or [...] Answer Date Recorded Total Score 4 06/05/2023 [facility]at ional Health - Occupational Stress [...] Recorded Do you need help finding a [employer] career center and/or a training program? No [...] Office Visit [facility] [address] [facility] [address] [place] [address] Adriane Woods, STAIN APPLICATOR-MECHANICAL EQUIPMENT SALES ENGINEER [address] [place] [address] documented as of this encounter Results * Protime & INR (11/17/2023 9:07 AM EDT) Protime 11.1 9.8 - 13.2 sec 11/17/2023 9:37 AM EDT [facility] Comment:NEW REFERENCE RANGE Inr 1.0 0.8 - 1.1 11/17/2023 9:37 AM EDT [facility] PLASMA 11/17/2023 9:07 AM EDT 11/17/2023 9:08 AM EDT us Libby Finley MD LAB BLOOD ORDERABLES Final Res ult [place] [id number] [facility] [place] [address] * APTT (11/17/2023 9:07 AM EDT) aPTT 33 26 - 37 sec 11/17/2023 9:37 AM EDT [facility] Comment:NEW REFERENCE RANGE PLASMA 11/17/2023 9:07 AM EDT 11/17/2023 9:08 AM EDT us Libby Finley MD LAB BLOOD ORDERABLES Final Res ult [facility] [address] [facility] [place] [address] * (ABNORMAL) Basic Metabolic Panel (11/17/2023 9:07 AM EDT) Sodium 140 134 - 146 mmol/L 11/17/2023 1:51 PM EDT [facility] Potassium, Bld 4.4 3.5 - 5.0 mmol/L 11/17/2023 1:51 PM EDT [facility] Chloride 99 98 - 109 mmol/L 11/17/2023 1:51 PM EDT [facility] CO2 31 22 - 32 mmol/L 11/17/2023 1:51 PM EDT [facility] Anion gap 10 5 - 15 mmol/L 11/17/2023 1:51 PM EDT [facility] BUN 23 5 - 23 mg/dL 11/17/2023 1:51 PM EDT [facility] Creatinine 0.83 0.40 - 1.00 mg/dL 11/17/2023 1:51 PM EDT [facility] Comment:METHOD TRACEABLE TO IDMS STANDARD Glucose 240(H) 65 - 99 mg/dL 11/17/2023 1:51 PM EDT [facility] Calcium 9.4 8.5 - 10.5 mg/dL 11/17/2023 1:51 PM EDT [facility] eGFR (CKD-EPI)non-ra ce dependent 89 >59 ml/min/1.7 3sq.m 11/17/2023 1:51 PM EDT [facility] Comment: Reported eGFR is based on the CKD-EPI 2020 equation that does not use a race coefficient. PLASMA 11/17/2023 9:07 AM EDT 11/17/2023 9:08 AM EDT us Libby Finley MD LAB BLOOD ORDERABLES Final Res ult [facility] [address] [facility] [place] [address] * CBC auto differential (11/17/2023 9:07 AM EDT) White Blood Cells 7.0 4.0 - 11.0 X10E9/L 11/17/2023 1:26 PM EDT [facility] RBC count 4.91 3.80 - 5.20 X10E12/L 11/17/2023 1:26 PM EDT [facility] Hemoglobin 14.2 11.7 - 15.5 g/dL 11/17/2023 1:26 PM EDT [facility] Hematocrit 42.9 35 - 47 % 11/17/2023 1:26 PM EDT [facility] MCV 87 80 - 100 fL 11/17/2023 1:26 PM EDT [facility] MCH 28.9 27 - 34 pg 11/17/2023 1:26 PM EDT [facility] MCHC 33.1 32 - 36 g/dL 11/17/2023 1:26 PM EDT [facility] RDW 13.5 11.5 - 15.0 % 11/17/2023 1:26 PM EDT [facility] Platelets 194 150 - 450 X10E9/L 11/17/2023 1:26 PM EDT [facility] MPV 7.7 7 - 12 fL 11/17/2023 1:26 PM EDT [facility] % neutrophils 56.3 % 11/17/2023 1:26 PM EDT [facility] % lymphocytes 36.3 % 11/17/2023 1:26 PM EDT [facility] % monocytes 5.3 % 11/17/2023 1:26 PM EDT [facility] % eosinophils 1.6 % 11/17/2023 1:26 PM EDT [facility] % Basophils 0.5 % 11/17/2023 1:26 PM EDT [facility] Neutrophils Absolute (A) 3.9 1.5 - 6.6 X10E9/L 11/17/2023 1:26 PM EDT [facility] Lymphocytes Absolute 2.5 1.0 - 3.5 X10E9/L 11/17/2023 1:26 PM EDT [facility] Monocytes Absolute 0.4 0 - 0.9 X10E9/L 11/17/2023 1:26 PM EDT [facility] Eosinophils Absolute 0.1 0.0 - 0.4 X10E9/L 11/17/2023 1:26 PM EDT [facility] Basophils Absolute 0.0 0.0 - 0.2 X10E9/L 11/17/2023 1:26 PM EDT [facility] Blood / Unknown 11/17/2023 9 :07 AM EDT 11/17/2023 9:08 AM EDT us Libby Finley MD LAB BLOOD ORDERABLES Final Res ult [facility] [address] [facility] [place] [address] documented in this encounter Visit Diagnoses Diagnosis SOB (shortness of breath)- Primary Shortness of breath documented in this encounter Additional Health Concerns Infection Onset Date Last Indicated Resolved Time COVID-19 Rule-Out 07/21/2024 07/21/2024 07/21/2024 6:08 PM EST Assessment Noted Time PHQ-9 Depression Total Score: 4 06/05/20 23 1:13 AM EDT documented as of this encounter Care Teams Stamp Machine Servicer Relationship Specialty Start Date End Date Diaz Dalton MD PCP - General Family Medicine 10/27/24 documented as of this encounter
--- OUTSIDE RECORDS SUMMARY | 2025-04-24 13:14 | XMS_ITS | Encounter Summary ---
Author Organization [facility] Address [address] [place] [address] Care Team Providers Care Maintenance Mechanic Millwright Name Role Phone Diaz Dalton MD Primary Care Provider [phone] Encounter Details Date Type Department Care Team ([facility] Contact Info) Description 06/30/2024 Clinisync Result Encounter [facility] Department Unsolicited Feliz Benz DO [address] [place], [place] [id number] Social History Tobacco Use Types Packs/Day Years [...] Upcoming Encounters Date Type Department Care Team ([facility] Contact Info) Description 05/22/2025 1:30 PM EDT Office Visit [facility] [address] [place] [address] Diaz Dalton MD [address] [place] [address] 05/26/2025 1:20 PM EDT Consult [facility] B[facility] CARRERA [address] [place] [address] [place] [phone] Feliz Benz, [address] [place] [address] 06/03/2025 1:30 PM EDT Office Visit [facility] [address] [place] [address] Cholo Strogn PA [address] [place] [address] 08/19/2025 2:00 PM EST Office Visit CHEL[facility] CARRERA [address] [place] [address] [place] [phone] Feliz Benz, [address] [facility] [place] [address] documented as of this encounter Procedures Procedure Name Priority Date/Time Associated Diagnosis Comments MM TOMOSYNTHESIS SCREENING BI 06/30/2024 7:52 PM EDT documented in this encounter Results * MM TOMOSYNTHESIS SCREENING BI (06/30/2024 7:52 PM EDT) Anatomical Region Laterality Modality Other 06/30/2024 7:52 PM EDT Narrative 06/30/2024 7:54 PM EDT The [address] [address] Mammography Report Signed Patient: CARISSA LOZADA MR#: [id number] : 1980 Acct:[id number] Age/Sex: 43 / F ADM Date: 06/28/24 Loc: MAMMO Attending Dr: Feliz Benz D.O. Ordering Physician: Feliz Benz D.O. Results: Date of Service: 06/28/24 Follow Up: Procedure(s): MM tomosynthesis screening BI Accession Number(s): [id number] cc: Feliz Benz D.O.; Diaz Dalton M.D. Patient Name: CARISSA LOZADA MR#: [id number] : 1980 Exam Date: 06/28/2024 Ordering Doctor: DR Feliz Benz . RADIOLOGY REPORT PROCEDURE: MM TOMOSYNTHESIS SCREENING BI COMPARISON: MM TOMOSYNTHESIS SCREENING BI, 06/26/2023. MG MAMM SCREEN 3D DINAH CAD, 06/22/2022. MG MAMM SCREEN 3D DINAH CAD, 06/21/2021. MG MAMM DINAH DIAG W CAD, 02/02/2016. INDICATIONS: Screening Calculator Name NCI Breast Cancer Risk Assessment Tool 5 Year Breast Cancer Risk 0.80% Lifetime Breast Cancer Risk 9.80% Personal Breast Cancer No Personal Ovarian Cancer No Treatments None Family Cancers None LOCATION: [facility] BREAST COMPOSITION: There are scattered areas of fibroglandular density. FINDINGS: DIAGNOSTIC CATEGORY 1--NEGATIVE. RIGHT BREAST: No significant suspicious finding. No significant change has occurred. LEFT BREAST: No significant suspicious finding. No significant change has occurred. RECOMMENDATIONS: ROUTINE MAMMOGRAM AND CLINICAL EVALUATION IN 12 MONTHS. PLEASE NOTE: A NORMAL MAMMOGRAM DOES NOT EXCLUDE THE POSSIBILITY OF BREAST CANCER. A CLINICALLY SUSPICIOUS PALPABLE LUMP SHOULD BE BIOPSIED. Dictated by: Kamron Gunn M.D. on 06/30/2024 at 19:48 Approved by: Kamron Gunn M.D. on 06/30/2024 at 19:52 Dictated By: Kamron Gunn M.D. Signed By: 06/30/241953 DD/ 51 TD/TT: Signal Intelligence Analyst: Procedure Note Radiology, Radiologist, MD - 06/30/2024 [place] [address] Mammography Report Signed Patient: CARISSA LOZADA RMR#: [id number] : 1980Acct:[id number] Age/Sex: 43 / FADM Date: 06/28/24 Loc: MAMMO Attending Dr: Feliz Benz D.O. Ordering Physician: Feliz Benz D.O.Results: Date of Service: 06/28/24Follow Up: Procedure(s): MM tomosynthesis screening BI Accession Number(s): [id number] cc: Feliz Benz D.O.; Diaz Dalton M.D. Patient Name: CARISSA LOZADA MR#: [id number] : 1980 Exam Date: 06/28/2024 Ordering Doctor: DR Feliz Benz . RADIOLOGY REPORT PROCEDURE: MM TOMOSYNTHESIS SCREENING BI COMPARISON: MM TOMOSYNTHESIS SCREENING BI, 06/26/2023. MG MAMM [id number] DINAH CAD, 06/22/2022. MG MAMM SCREEN 3D DINAH CAD, 06/21/2021. MG MAMM BILDIAG W CAD, 02/02/2016. INDICATIONS: Screening Calculator Name NCI Breast Cancer Risk Assessment Tool 5 Year Breast Cancer Risk 0.80% Lifetime Breast Cancer Risk 9.80% Personal Breast Cancer No Personal Ovarian Cancer No Treatments None Family Cancers None LOCATION: [facility] BREAST COMPOSITION: There are scattered areas of fibroglandulardensity. FINDINGS: DIAGNOSTIC CATEGORY 1--NEGATIVE. RIGHT BREAST: No significant suspicious finding. No significant changehas occurred. LEFT BREAST: No significant suspicious finding. No significant changehas occurred. RECOMMENDATIONS: ROUTINE MAMMOGRAM AND CLINICAL EVALUATION IN 12 MONTHS. PLEASE NOTE: A NORMAL MAMMOGRAM DOES NOT EXCLUDE THE POSSIBILITY OFBREAST CANCER. A CLINICALLY SUSPICIOUS PALPABLE LUMP SHOULD BE BIOPSIED. Dictated by: Kamron Gunn M.D. on 06/30/2024 at 19:48 Approved by: Kamron Gunn M.D. on 06/30/2024 at 19:52 Dictated By: Kamron Gunn M.D. Signed By:06/30/241953 DD/ 51 TD/TT: Signal Intelligence Analyst: us Feliz Benz DO [facility] Final Result documented in this encounter Visit Diagnoses Not on filedocumented in this encounter Care Teams Maintenance Mechanic Millwright Relationship Specialty Start Date End Date Diaz Dalton MD [address] [place] [address] PCP - General Family Medicine 09/25/23 documented as of this encounter
--- OUTSIDE RECORDS SUMMARY | 2025-04-24 13:15 | XMS_ITS | Encounter Summary ---
Author Organization [facility] Sys tem Address [facility] [id number] [address] [place] [address] Care Team Providers Care Agronomist Name Role Phone Diaz Dalton MD Primary Care Provider [phone] Encounter Details Date Type Department Care Team (Late st Contact Info) Description 12/25/2023 Orders Only [facility] Pulmonary/Sleep Medicine [address] [facility] [address] [place] [address] Stella Reyes, GEORGINA SOB (shortness of breath) (Primary Dx) Social History Tobacco Use Types Packs/Day Years Used Date Smoking Tobacco: Never Smokeless Tobacco: Never Alcohol Use Standard Drinks/Week Comments Yes 0 (1 standard drink = 0.6 oz pur e alcohol) occasionally-once a month [facility] Utilities Answer Date Recorded In the past 12 months has [employer] electric, gas, oil, or water company threatened to shut off services in your home? Yes 12/20/2023 Social Connection and Isolat ion Panel [NHANES] Answer Date Recorded In a typical week, how many times do you talk on the phone with family, friends, or neighbors? More than three times a week 12/20/2023 How often do you get togethe r with friends or relatives? More than three times a week 12/20/2023 How often do you attend chur ch or alevism services? Never 12/20/2023 Do you belong to any clubs o r organizations such as lutheran groups, unions, fraternal or athletic groups, or [...] Answer Date Recorded Total Score 4 06/05/2023 [facility] - Occupational Stress [...] medical appointments or from getting medications? No 12/03 In the past 12 months, has l ack of transportation kept you from meetings, work, or from getting things needed for daily living? No 12/20/2023 Housing Instability Answer Date Recorde d Are you worried or concerned that in the next two months you may not have stable housing that you own, rent or stay in as a part of a household? No 12/20/2023 Childcare Answer Date Recorded Do problems getting child ca re make it difficult for you to work or study? No 12/20/2023 Employment Answer Date Recorded Do you need help finding a [facility] career center and/or a training program? No 12/20/2023 Hunger Screening Answer Date Recorded Within the past 12 months we worried whether our food would run out before we got money to buy more. Never True 12/20/2023 Within the past 12 months th e food we bought just didn't last and we didn't have money to get more. Never True 12/20/2023 Purpose - Life Answer Date Recorded I [...] Cardiology [address] [place] [address] Adriane Woods, HOME HEALTH AIDE CAREGIVER-VOCATIONAL EXAMINER [address] [place] [address] documented as of this encounter Results * SPIROMETRY PRE/POST BRONCHODILATOR AND DLCO AND PLETHYSMOGRAPHY (02/13/2024 8:35 AM EDT) Narrative MANUALLY TRANSCRIBED RESULTS - 02/27/2024 2:26 PM EDT Patient gave good effort and data is reproducible FEV1/FVC is 89 with FEV1 76 % predicted or 1.81 L and forced vital capacity 66% predicted or 2.04 L Total lung capacity is 131% predicted or 5.77 L with vital capacity 83% predicted or 2.57 L in residual volume 220% predicted or 3.2 L Diffusion capacity is severely reduced at 43 Impression: There is suggestion of some restrictive physiology demonstrated which appears predominantly related to body habitus. Elevated residual volume is noted and may be reflective of respiratory muscle fatigue versus underlying obstructive airflow defect. Impaired gas transfer is also present. This can be seen in underlying emphysema, early interstitial lung disease, pulmonary vascular disease, pulmonary hypertension or anemia. Please correlate with clinical and radiographic data us Cristina Arrieta DO PFT ORDERABLES Final Result MANUALLY TRANSCRIBED RESULTS documented in this encounter Visit Diagnoses Diagnosis SOB (shortness of breath)- Primary Shortness of breath SOB (shortness of breath) Shortness of breath documented in this encounter Additional Health Concerns Infection Onset Date Last Indicated Resolved Time COVID-19 Rule-Out 07/21/2024 07/21/2024 07/21/2024 6:08 PM EST Assessment Noted Time PHQ-9 Depression Total Score: 4 06/05/20 23 1:13 AM EDT documented as of this encounter Care Teams Agronomist Relationship Specialty Start Date End Date Diaz Dalton MD PCP - General Family Medicine 10/27/24 documented as of this encounter
--- OUTSIDE RECORDS SUMMARY | 2025-04-24 13:15 | XMS_ITS | Encounter Summary ---
[facility] Address [facility] [id number] [address] [place] [address] Care Team Providers Care Shuttle Operator Name Role Phone Diaz Dalton MD Primary Care Provider [phone] Encounter Details Date Type Department Care Team ([facility] st Contact Info) Description 03/13/2024 Telephone [facility] Pulmonary/Sleep Medicine [address] [address] Cristina Arrieta DO [address] [facility] [address] [place] [address] Social History Tobacco Use Types Packs/Day Years Used Date Smoking Tobacco: Never Smokeless Tobacco: Never Alcohol Use Standard Drinks/Week Comments Yes 0 (1 standard drink = 0.6 oz pur e alcohol) occasionally-once a month [facility] Utilities Answer Date Recorded In the past 12 months has [employer], gas, oil, or water [employer] threatened to shut off services in your [...] often do you attend chur ch or hindu services? Never 12/20/2023 Do you belong to any clubs o r organizations such as sabianist groups, unions, fraternal or athletic groups, or [...] Answer Date Recorded Total Score 4 06/05/2023 [facility] - Occupational Stress Questionnaire Answer Date [...] Recorded Do you need help finding a [facility] career center and/or a training program? No [...] encounter Miscellaneous Notes * Telephone Encounter - Anjali Nieves - 03/13/2024 11:03 AM EDT Patient called and asked if she can get an order for smaller O2 tanks, the tanks she has now are too heavy. * Telephone Encounter - Stella Reyes RN - 03/13/2024 11:03 AM EDT Patient will need to discuss with physician at video visit appt on 03-18-24. * Telephone Encounter - MOIZ Andrew - 03/13/2024 11:03 AM EDT Patient called in regard to the oxygen tanks that she discussed with SE during her video visit, patient would like to know if an order was sent to her DME. Petroleum Engineering Professor informed patient that a message would be sent to [facility] to verify. Please review and advise. * Telephone Encounter - Cristina Arrieta DO - 03/13/2024 11:03 AM EDT Can you please reach out to [facility] and see what tanks she does have and if she just needs conserver device testing? That was what was in my note and I thought we got an email from them about it but I dont see anything in her chart. * Telephone Encounter - MOIZ Andrew - 03/13/2024 11:03 AM EDT Images from the original note were not included. Please review [facility]'s response and advise. * Telephone Encounter - Cristina Arrieta DO - 03/13/2024 11:03 AM EDT Needs testing for conserver device. * Telephone Encounter - MOIZ Andrew - 03/13/2024 11:03 AM EDT Order placed and emailed to Dahiana Davis with [facility]. Awaiting to hear back from [facility] to see if they will need anything else. documented in this encounter Plan of Treatment Upcoming Encounters Date Type Department Care Team (Late st Contact Info) Description 07/07/2025 9:30 AM EST Office Visit [facility] [address] [place] [id number] Adriane Woods, LITHOGRAPHERS PRINTER-PAYER SPECIALIST [address] [place] [address] documented as of this encounter Visit Diagnoses Not on filedocumented in this encounter Additional Health Concerns Infection Onset Date Last Indicated Resolved Time COVID-19 Rule-Out 07/21/2024 07/21/2024 07/21/2024 6:08 PM EST Assessment Noted Time PHQ-9 Depression Total Score: 4 06/05/20 23 1:13 AM EDT documented as of this encounter Care Teams Shuttle Operator Relationship Specialty Start Date End Date Diaz Dalton MD PCP - General Family Medicine 10/27/24 documented as of this encounter
--- OUTSIDE RECORDS SUMMARY | 2025-04-24 13:15 | XMS_ITS | Clinical Summary ---
Author Organization [facility] Address [address] [place] [address] Care Team Providers Care Sales Marketing Manager Name Role Phone Diaz Dalton MD Primary Care Provider Allergies Active Allergy Reactions Criticality Noted Date Comments Sulfamethoxazole-Trimethoprim Hives,Itching 06/2012 Medications acyclovir (Zovirax) 400 MG tablet every 12 (twelve) hours Active traZODone (Desyrel) 150 MG tablet 1 (one) time each day at the same time Active oxybutynin XL (Ditropan-XL) 15 MG 24 hr tablet Take 15 mg by mouth Daily 023 Active prazosin (Minipress) 2 MG capsule 023 Active metoprolol tartrate (Lopressor) 50 MG tablet 023 Active lanolin (Lansinoh) creamIndications :Nipple pain Apply topically if needed for dry skin 7 g 024 Active Black Cohosh (Black Cohosh Hot Flash Relief) 40 MG capsuleIndicatio ns:Hot flashes due to menopause Take 1 each by mouth Daily 30 capsule 11 024 Active Trelegy Ellipta 200-62.5-25 MCG/ACT aerosol powder Inhale 1 puff in the morning. 024 Active fluconazole (Diflucan) 150 MG tablet Take 150 mg by mouth 1 (one) time 024 Active pantoprazole (ProtoNix) 40 MG EC tabletIndication s:Gastroesophage al reflux disease without esophagitis Take 1 tablet by mouth once daily 30 tablet 5 024 Active cyclobenzaprine (Flexeril) 10 MG tabletIndication s:Spondylosis without myelopathy TAKE 1 TABLET BY MOUTH THREE TIMES DAILY NEEDED FOR MUSCLE SPASMS 60 tablet 10 024 Active lamoTRIgine (LaMICtal) 200 MG tabletIndication s:Mild episode of recurrent major depressive disorder Take 1 tablet (200 mg) by mouth at bedtime 90 tablet 3 024 Active dicyclomine (Bentyl) 20 MG tabletIndication s:Irritable bowel syndrome with diarrhea TAKE 1 TABLET BY MOUTH FOUR TIMES DAILY NEEDED 60 tablet 10 025 Active ondansetron ODT (Zofran-ODT) 4 MG disintegrating tabletIndication s:Nausea PLACE 1 TABLET ON TONGUE AND ALLOW TO DISSOLVE EVERY 6 HOURS NEEDED FOR NAUSEA OR VOMITING 30 tablet 10 025 Active Continuous Glucose Sensor (FreeStyle Crystal 3 Sensor) miscIndications: Type 2 diabetes mellitus with hyperglycemia, with long-term current use of insulin ([facility]) USE TO MONITOR BLOOD SUGAR DIRECTED. CHANGE SENSOR EVERY 14 DAYS. 2 each 025 Active Continuous Glucose Utility Tractor Operator (FreeStyle Crystal 3 [place]) deviceIndication s:Type 2 diabetes mellitus with hyperglycemia, with long-term current use of insulin ([facility]) 1 Application continuously 1 each 025 Active buPROPion XL (Wellbutrin XL) 300 MG 24 hr tabletIndication s:Panic disorder without agoraphobia TAKE 1 TABLET BY MOUTH ONCE DAILY 30 tablet 10 025 Active insulin aspart FlexPen (NovoLOG) 100 UNIT/ML penIndications:T ype 2 diabetes mellitus with hyperglycemia, with long-term current use of insulin ([facility]) INJECT SUBCUTANEOUSLY THREE TIMES A DAY PER SLIDING SCALE; *30 TO 40 UNITS DAILY* 15 mL 5 025 Active nabumetone (Relafen) 500 MG tabletIndication s:Carpal tunnel syndrome of left wrist Take 1 tablet (500 mg) by mouth 2 (two) times a day as needed for moderate pain 60 tablet 2 025 Active insulin pen needle (Droplet Pen [place]) 32G x 4 mm miscIndications: Type 2 diabetes mellitus with microalbuminuria , with long-term current use of insulin ([facility]) Use as instructed 200 each 10 025 Active lisinopril 2.5 MG tabletIndication s:Chronic heart failure with preserved ejection fraction (HFpEF) ([facility]) TAKE 1 TABLET BY MOUTH DAILY 30 tablet 11 025 Active atorvastatin (Lipitor) 40 MG tabletIndication s:Dyslipidemia Take 1 tablet (40 mg) by mouth Daily 30 tablet 025 2025 Active cholecalciferol (Vitamin D-3) 50 MCG (1999 UT) tabletIndication s:Vitamin D deficiency TAKE 2 TABLETS BY MOUTH DAILY 60 tablet 11 025 Active SUMAtriptan (Imitrex) 25 MG tabletIndication s:Migraine without aura and without status migrainosus, not intractable TAKE 1 TABLET BY MOUTH NEEDED 9 tablet Active insulin glargine (Semglee) 100 UNIT/ML penIndications:T ype 2 diabetes mellitus with hyperglycemia, with long-term current use of insulin ([facility]) Inject 20 Units under the skin in the morning and 20 Units before bedtime. 15 mL 3 025 Active LORazepam (Ativan) 1 MG tabletIndication s:JOHN (generalized anxiety disorder) Take 1 tablet (1 mg) by mouth 3 (three) times a day as needed for anxiety 90 tablet 025 Active citalopram (CeleXA) 40 MG tabletIndication s:Mild episode of recurrent major depressive disorder Take 1 tablet (40 mg) by mouth Daily 30 tablet 5 025 Active albuterol HFA 90 mcg/act inhalerIndicatio ns:SOB (shortness of breath) INHALE 2 PUFFS BY MOUTH EVERY 4 HOURS NEEDED FOR WHEEZING 8.5 g 11 025 Active Blood Glucose Monitoring Suppl (True Metrix Meter) w/Device kitIndications:T ype 2 diabetes mellitus with hyperglycemia, with long-term current use of insulin ([facility]) Test daily 1 kit 025 Active ofloxacin (Ocuflox) 0.3 % ophthalmic solution INSTILL 1 DROP INTO AFFECTED EYE X4/DAY DIRECTED START 3DAYS PRIOR TO SX,THEN IMMEDIATELY FOLLOWING SX EVERY HOUR W/A,THEN X4/DAY NEXT DAY TIL APPT *04/14* 025 Active pioglitazone (Actos) 45 MG tablet Active prednisoLONE acetate (Pred-Forte) 1 % ophthalmic suspension INSTILL 1 DROP IN AFFECTED EYE EVERY HOUR WHILE AWAKE AFTER SURGERY THEN NEXT DAY 4 TIMES DAILY UNTIL APPOINTMENT *EFFECTIVE 04/14* 025 Active Trulicity 0.75 MG/0.5ML solution auto-injectorInd ications:Type 2 diabetes mellitus with hyperglycemia, with long-term current use of insulin ([facility]) INJECT 0.75 MG SUBCUTANEOUSLY ONCE WEEKLY 2 mL Active furosemide (Lasix) 40 MG tabletIndication s:Chronic heart failure with preserved ejection fraction (HFpEF) ([facility]) Take 1 tablet (40 mg) by mouth Daily 30 tablet 5 Active empagliflozin (Jardiance) 25 MGIndications:Ty pe 2 diabetes mellitus with hyperglycemia, with long-term current use of insulin ([facility]) Take 1 tablet (25 mg) by mouth Daily 30 tablet 5 Active Continuous Glucose Sensor (FreeStyle Crystal 3 Sensor) miscIndications: Type 2 diabetes mellitus with hyperglycemia, with long-term current use of insulin ([facility]) 1 Units 1 (one) time per week 1 each Active ondansetron (Zofran) 4 MG tabletIndication s:Nausea Take 1 tablet (4 mg) by mouth every 6 (six) hours if needed for nausea or vomiting for up to 30 doses Take 1 tablet by mouth every 6 hours as needed for nausea. 30 tablet 1 Active ibuprofen 800 MG tabletIndication s:Pelvic pain in female Take 1 tablet (800 mg) by mouth every 6 (six) hours if needed for mild pain for up to 30 doses 30 tablet 025 Active furosemide (Lasix) 40 MG tabletIndication s:Chronic heart failure with preserved ejection fraction (HFpEF) ([facility]) Take 1 tablet (40 mg) by mouth Daily 30 tablet 5 025 2024 Discontinued(R eorder) empagliflozin (Jardiance) 25 MGIndications:Ty pe 2 diabetes mellitus with hyperglycemia, with long-term current use of insulin ([facility]) Take 1 tablet (25 mg) by mouth Daily 30 tablet 5 025 2024 Discontinued(R eorder) Dulaglutide (Trulicity) 0.75 MG/0.5ML solution auto-injectorInd ications:Type 2 diabetes mellitus with hyperglycemia, with long-term current use of insulin ([facility]) Inject 0.75 mg under the skin 1 (one) time per week 2 mL 025 2024 Discontinued Active Problems Problem Noted Date Diagnosed Date Encounter for long-term (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 medicat ions 02/10/2025 Dehydration 10/28/2024 Assessment & Plan (10/28/2024 2:54 PM EST): Improved after IV fluids and monitor. Continue with increased fluid intake. Nausea & vomiting 10/28/2024 Assessment & Plan (10/28/2024 2:54 PM EST): Use zofran PRN. Pulmonary hypertension 08/06/2024 Assessment & Plan (08/06/2024 12:07 PM EST): Continued SOB and follow with specialists. Moderate persistent asthma without complication 02/19/2024 Type 2 diabetes mellitus wit h hyperglycemia, with long-term current use of insulin 02/12/2024 Assessment & Plan (02/10/2025 2:01 PM EDT): BS elevated and increase semglee to 20 units BID. Resume moujaro. Assessment & Plan (11/07/2024 10:48 AM EST): Reports BS occasionally low but A1C 12.8. Continue semglee and increase jardiance. Stick to ADA diet and limit carbs. Assessment & Plan (10/28/2024 2:54 PM EST): Stop mounjaro and decrease insulin. Check A1C. Assessment & Plan (08/06/2024 12:07 PM EST): BS elevated with steroids and monitor. A1C improved but still elevated and increase mounjaro. Assessment & Plan (05/13/2024 2:50 PM EDT): Reports BS improved and due for A1C. Increase mounjaro. Stick to ADA diet and limit carbs. Assessment & Plan (02/12/2024 3:23 PM EDT): Reports BS improved and due for A1C. Stick to ADA diet and limit carbs. Obesity hypoventilation syndrome 01/04/2024 Assessment & Plan (02/12/2024 3:23 PM EDT): Seen by pulmonology and complete testing. Follow up as scheduled. Assessment & Plan (01/04/2024 12:33 PM EDT): Recent hypoxia likely related to weight. Need to change diet and lose weight. Benign essential hypertension 01/04/2024 Assessment & Plan (02/10/2025 1:59 PM EDT): BP controlled and monitor PRN. Assessment & Plan (01/04/2024 12:34 PM EDT): BP elevated but no history of HTN. Monitor PRN. Right carpal tunnel syndrome 01/04/2024 Assessment & Plan (05/29/2024 11:15 AM EDT): Continued pain and follow with ortho. Assessment & Plan (05/31/2024 12:19 PM EDT): Able to proceed with upcoming surgery at low to 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 risk of complications. DM improved and no CAD or HTN. Cleared by pulmonology. Reviewed echo and the results are normal. Recommend routine PAT. Assessment & Plan (01/04/2024 12:34 PM EDT): Patient needs to have surgery but currently not cleared. Need evaluation by pulmology and needs to improve BS prior to surgery. Contracture, unspecified ankle 04/06/2023 Chronic heart failure with p reserved ejection fraction (HFpEF) 04/06/2023 Assessment & Plan (02/10/2025 1:59 PM EDT): Edema stable and continue lasix. Assessment & Plan (11/07/2024 10:46 AM EST): Continue lasix. Assessment & Plan (10/28/2024 2:56 PM EST): Continue lasix. Assessment & Plan (08/06/2024 12:07 PM EST): No change with lasix and increase to 40 mg. Assessment & Plan (05/13/2024 2:49 PM EDT): Edema controlled with lasix and use PRN. Elevate legs PRN. Assessment & Plan (02/12/2024 3:22 PM EDT): Edema controlled with lasix and use PRN. Elevate legs PRN. Equinus deformity of left foot 04/06/2023 Gastroesophageal reflux disease 04/06/2023 Assessment & Plan (11/07/2024 10:47 AM EST): Symptoms controlled with protonix and continue. Assessment & Plan (02/12/2024 3:22 PM EDT): Symptoms controlled with protonix and continue. Assessment & Plan (11/02/2023 4:10 PM EST): Symptoms controlled with protonix and continue. Genital warts 04/06/2023 Hot flashes due to menopause 04/06/2023 Type 2 diabetes mellitus wit h microalbuminuria, with long-term current use of insulin 04/06/2023 Assessment & Plan (05/29/2024 11:14 AM EDT): BS elevated and A1C 12.9. Not taking lantus BID and resume. Continue mounjaro. Stick to ADA diet and limit carbs. Assessment & Plan (01/04/2024 12:34 PM EDT): BS elevated and meter currently reads high. Increased basaglar to BID. Stick to ADA diet and limit carbs. Limit portions and snacking. Patient needs to improve BS before able to have surgery. Assessment & Plan (11/02/2023 4:11 PM EST): BS starting to go low but A1C 11.2. Stick to ADA diet and limit carbs. Eat regularly. Continue insulin and sliding scale. Internal derangement of left shoulder 04/06/2023 Irritable bowel syndrome with diarrhea Assessment & Plan (02/12/2024 3:22 PM EDT): Occasional symptoms and use bentyl PRN. Assessment & Plan (11/02/2023 4:10 PM EST): Occasional symptoms and use bentyl PRN. Migraine without aura and wi thout status migrainosus, not intractable 04/06/2023 Assessment & Plan (11/02/2023 4:11 PM EST): CARPIO stable and continue medication. Use imitrex PRN. Mild episode of recurrent major depressive disor adilene 04/06/2023 Assessment & Plan (02/10/2025 2:00 PM EDT): Symptoms worse and increase celexa. Warned will take 2-3 weeks to notice improvement in mood. Assessment & Plan (11/07/2024 10:47 AM EST): Mood controlled with medication and continue. Assessment & Plan (05/13/2024 2:49 PM EDT): Mood controlled with medication and continue. Assessment & Plan (02/12/2024 3:22 PM EDT): Mood controlled with medication and continue. Assessment & Plan (11/02/2023 4:11 PM EST): Mood controlled with medication and continue. Osteoarthritis of knee 04/06/2023 Assessment & Plan (02/10/2025 2:00 PM EDT): Unsteady when moving and script for rolling walker to patient. Overactive bladder 04/06/2023 Class 3 severe obesity due t o excess calories with serious comorbidity and body mass index (BMI) of 40.0 to 44.9 in adult 11/21/2022 Assessment & Plan (02/10/2025 1:59 PM EDT): Weight loss indicated. Assessment & Plan (11/07/2024 10:47 AM EST): Weight loss indicated. Assessment & Plan (10/28/2024 2:55 PM EST): Weight loss indicated. Mild developmental delay 09/29/2021 Type 2 diabetes mellitus with polyneuropathy 03/2021 Spondylosis without myelopathy 08/10/2010 Assessment & Plan (05/13/2024 2:50 PM EDT): Increased pain and start flexeril. Dyslipidemia 04/22/2010 Panic disorder without agoraphobia 11/12/2009 Allergic rhinitis due to allergen 10/01/2009 JOHN (generalized anxiety disorder) 10/01/2009 Assessment & Plan (02/10/2025 2:00 PM EDT): Symptoms worse and increase celexa. Warned will take 2-3 weeks to notice improvement in mood. Use ativan PRN. Assessment & Plan (11/07/2024 10:47 AM EST): Mood controlled with medication and continue. Use ativan PRN. Assessment & Plan (05/13/2024 2:49 PM EDT): Mood controlled with medication and continue. Use ativan PRN. Assessment & Plan (02/12/2024 3:22 PM EDT): Mood controlled with medication and continue. Use ativan PRN. Assessment & Plan (11/02/2023 4:09 PM EST): Mood controlled with medication and continue. Use ativan PRN. Obstructive sleep apnea syndrome 09/30/2009 Resolved Problems Problem Noted Date Diagnosed Date Resolved Date Acute pain of right knee 05/29/202411/2023 Assessment & Plan (05/29/2024 11:14 AM EDT): Recent fall and continued pain. X-ray negative. Start PT and ice PRN. Continue relafen and flexeril. Chronic hypoxic respiratory failure 02/19/2024 11/07/2024 Assessment & Plan (10/28/2024 2:55 PM EST): On home oxygen and follow with pulmonology. Assessment & Plan (08/06/2024 12:07 PM EST): On home oxygen and follow with pulmonology. Assessment & Plan (05/13/2024 2:49 PM EDT): On home oxygen and follow with pulmonology. Hypoxia 01/04/2024 11/07/2024 Assessment & Plan (01/04/2024 12:33 PM EDT): Recent hypoxia and likely related to obesity and elevated BS. Scheduled with pulmonology for testing and will need cleared for surgery. Cavitary lesion of lung 08/10/2023 0905/2024 Assessment & Plan (08/10/2023 2:57 PM EST): Lesion noted on recent CT and prior biopsy. Check PET scan and refer to CT surgeon. Use norco PRN for pain. Other chest pain 08/10/2023 11/02/2023 Assessment & Plan (08/10/2023 2:58 PM EST): Continued pain and workup for CAD normal. Use norco PRN and follow up with CT surgeon. Acute pain of left shoulder 04/06/2023 08/10/2023 Carpal tunnel syndrome of left wrist 04/06/2023 05/13/2024 Assessment & Plan (02/12/2024 3:21 PM EDT): Able to proceed with surgery at low risk for complications. Reports BS improved and will monitor A1C. Needs clearance from pulmonology. Other chronic pain 04/06/2023 3 Missed period 04/06/2023 08/10/2023 Cubital tunnel syndrome on left 11/04/2022 08/10/2023 Overview (04/06/2023): Added automatically from request for surgery [id number] Acute kidney injury (DREW) wi th acute tubular necrosis (ATN) 09/30/2021 08/10/2023 High anion gap metabolic acidosis 09/30/2021 08/10/2023 Pneumonia due to infectious organism 09/29/2021 08/10/2023 DKA, type 1, not at goal 09/27/202103/2023 Shoulder joint pain 04/06/2021 08/10/20 23 Hyperglycemia 03/01/2019 08/10/2023 Fecal incontinence 06/22/2016 3 Poorly controlled diabetes mellitus 08/10/2015 08/10/2023 Normal gynecologic examination 06/09/2015 08/10/2023 Convulsions in the 09/30/2009 1 10/11/2022 Mild intellectual disability 09/30/2009 08/10/2023 Type 2 diabetes mellitus 09/30/200903/2023 Encounters Date Type Department Care Team Description 04/23/2025 Telephone [facility] [address] [place] [address] Jr. Harinder Jackson, DO Medial aspect of her eye and nose 04/22/2025 10:00 AM EDT Office Visit [facility] [address] [facility] [address] Jr. Harinder Jackson, 04/22/2025 Telephone [facility] [address] [facility] [place] [address] Renetta Simons MA [employer] ( ) 04/22/2025 Bamboo flowsheet [facility] [address] [place] [address] Jr. Harinder Jackson, 04/22/2025 Travel 04/20/2025 Refill [facility] [address] [facility] [facility] [place] [address] Feliz Benz, Pelvic pain in female 04/14/2025 1:40 PM EDT Office Visit [facility] [address] [facility] [facility] [place] [address] Feliz Benz DO Pelvic pain in female (Primary Dx); Nausea; Genital warts 04/14/2025 Bamboo flowsheet [facility] [address] [facility] [place] [address] Feliz Benz, 04/10/2025 2:30 PM EDT Treatment [facility] [address] [facility] [address] [place] [address] Puma Kelly PTA Acute pain of left knee (Primary Dx) 04/10/2025 Bamboo flowsheet [facility] [address] [facility] [address] [place] [address] Puma Kelly PTA 04/10/2025 Travel 04/09/2025 Refill [facility] [address] [place] [address] Diaz Dalton MD Type 2 diabetes mellitus with hyperglycemia, with long-term current use of insulin ([facility]) (Primary Dx); Chronic heart failure with preserved ejection fraction (HFpEF) ([facility]) 04/09/2025 Telephone [facility] [address] [place] [address] Diaz Dalton MD 04/07/2025 Telephone [facility] [address] [facility] [address] [place] [address] Ubaldo Herzog PTA Cx PT 04/07/25 04/02/2025 11:00 AM EDT Treatment [facility] [address] [facility] [address] [place] [address] Brink, Puma, COLLECTION TELLER Acute pain of left knee (Primary Dx) 04/02/2025 Bamboo flowsheet [facility] [address] [place] [address] [place] [address] Puam Kelly, COLLECTION TELLER 04/02/2025 Travel 04/01/2025 Refill [facility] [address] [place] [address] Diaz Dalton MD Type 2 diabetes mellitus with hyperglycemia, with long-term current use of insulin ([facility]) 03/28/2025 Telephone [facility] [address] [place] [place] [address] Ubaldo Herzog, COLLECTION TELLER re: PT so far 03/27/2025 Telephone [facility] [address] [place] [id number] Shama Strong PA called and said that therapy is making her pain worse 03/26/2025 1:30 PM EDT Treatment [facility] [address] [place] [place] [address] Ubaldo Herzog, COLLECTION TELLER Acute pain of left knee (Primary Dx) 03/26/2025 Bamboo flowsheet [facility] [address] [place] [place] [address] Ubaldo Herzog, VANDANA 03/26/2025 Travel 03/25/2025 Orders Only [facility] [address] [place] [address] Lotus Diego MD 03/21/2025 8:30 AM EDT Evaluation [facility] [address] [place] [address] [place] [address] Shakila Lee, PT Acute pain of left knee (Primary Dx) 03/21/2025 Plan of Care Documentation [facility] [address] [place] [place] [address] 03/21/2025 Bamboo flowsheet [facility] [address] [facility] [address] [place] [address] Jesus Shakila, PT 03/21/2025 Travel 03/17/2025 2:30 PM EDT Procedure Visit [facility] [address] [place] [address] [place] [address] Feliz Benz DO Genital warts 03/14/2025 11:30 AM EDT Office Visit [facility] [address] [facility] [place] [address] Jr. Harinder Jackson, DO Acute medial meniscus tear of left knee, initial encounter (Primary Dx); Acute pain of left knee 03/14/2025 Bamboo flowsheet [facility] [address] [facility] [address] [address] [place] [address] Jr. Harinder Jackson, 03/14/2025 Travel 03/12/2025 Refill [facility] [address] [place] [address] Diaz Dalton MD Type 2 diabetes mellitus with hyperglycemia, with long-term current use of insulin ([facility]) 03/05/2025 Telephone [facility] [address] [place] [address] Diaz Dalton MD 03/05/2025 Results Follow-Up [facility] [address] [place] [address] Shama Strong PA MR KNEE LT WO CON 03/04/2025 Clinisync Result Encounter [facility] External Department Unsolicited Shama Strong PA 03/03/2025 Telephone [facility] [address] [place] [address] Diaz Dalton MD Prior Authorization 02/27/2025 Telephone [facility] [address] [place] [address] Shama Strong PA in pain 02/25/2025 2:30 PM EDT Office Visit [facility] [address] [place] [address] Shama Strong PA Internal derangement of left knee (Primary Dx); Acute pain of left knee 02/25/2025 2:10 PM EDT Ancillary Procedure [facility] [address] [place] [address] 02/25/2025 Refill [facility] [address] [place] [address] Diaz Dalton MD Type 2 diabetes mellitus with hyperglycemia, with long-term current use of insulin ([facility]) (Primary Dx) 02/25/2025 Bamboo flowsheet [facility] [address] [place] [address] Shama Strong PA 02/25/2025 Travel 02/24/2025 Refill [facility] [address] [place] [address] Diaz Dalton MD SOB (shortness of breath) 02/13/2025 Abstract [facility] [address] [place] [address] Diaz Dalton MD 02/13/2025 Abstract [facility] [address] [place] [address] Diaz Dalton MD 02/12/2025 Refill [facility] [address] [place] [address] Diaz Dalton MD JOHN (generalized anxiety disorder) 02/11/2025 Refill [facility] [address] [place] [address] Diaz Dalton MD JOHN (generalized anxiety disorder) 02/11/2025 Refill [facility] [address] [place] [address] Diaz Dalton MD Type 2 diabetes mellitus with hyperglycemia, with long-term current use of insulin (HCC) 02/11/2025 Refill [facility] [address] [place] [address] Diaz Dalton MD 02/10/2025 1:00 PM EDT Office Visit [facility] [address] [place] [address] Diaz Dalton MD Type 2 diabetes mellitus with hyperglycemia, with long-term current use of insulin ([facility]) (Primary Dx); Benign essential hypertension ; Mild episode of recurrent major depressive disorder ; JOHN (generalized anxiety disorder) ; Chronic heart failure with preserved ejection fraction (HFpEF) ([facility]); Type 2 diabetes mellitus with microalbuminuria, with long-term current use of insulin ([facility]); Class 3 severe obesity due to excess calories with serious comorbidity and body mass index (BMI) of 40.0 to 44.9 in adult ([facility]); Encounter for long-term (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 medications; Dyslipidemia ; Primary osteoarthritis of both knees 02/10/2025 Bamboo flowsheet [facility] [address] [place] [id number] Diaz Dalton MD 02/03/2025 Refill [facility] [address] [place] [address] Diaz Dalton MD Migraine without aura and without status migrainosus, not intractable 02/02/2025 Refill [facility] [address] [place] [address] Diaz Dalton MD Vitamin D deficiency 01/23/2025 Abstract [facility] [address] [place] [address] Diaz Dalton MD 01/22/2025 Telephone [facility] [address] [place] [address] Diaz Dalton MD from Last 3 Months Immunizations Immunization Administration Dates Next Due Influenza, injectable, quadr ivalent, preservative free 06/15/2020,05/20/2019,04/22/2017,2015,05/28/2015 Pneumococcal Conjugate PCV 20 12/18/2023 Tdap 04/09/2021 Tetanus toxoid, adsorbed 10/06/2009 Family History Medical History Relation Name Comments No Known Problems Brother Alzheimer's disease Father Diabetes Father Hyperlipidemia Father Hypertension Father Stroke Father Asthma Mother extrinsic Hypertension Mother No Known Problems Sister Relation Name Status Comments Brother 1 brother Father Maternal Grandfather Maternal Grandmother Mother Alive Paternal Grandfather Paternal Grandmother Sister 1 sister Social History Tobacco Use Types Packs/Day Years Used Date Smoking Tobacco: Never Smokeless Tobacco: Never Tobacco Cessation:Counseling Given: Not Answered Alcohol Use Standard Drinks/Week Comments Never 0 (1 standard drink = 0.6 oz pure alcohol) Caffeine: 1-2 cups/day , mountain dew occasionally Comments No Sex and Gender Information Value Date Recorded Sex Assigned at Not on file Legal Sex Female 6:38 PM EDT Gender Identity Not on file Sexual Orientation Not on file Last Filed Vital Signs Vital Sign Reading Time Taken Comments Blood Pressure 122/90 04/14/2025 1:38 PM EDT Pulse 85 02/10/2025 1:23 PM EDT Temperature 36.3 C (97.3 F) 02/10/2025 1:23 PM EDT Respiratory Rate 20 02/10/2025 1:23 PM EDT Oxygen Saturation 98% 02/10/2025 1:23 PM EDT Inhaled Oxygen Concentration - - Weight 93.8 kg (206 lb 12 oz) 04/14/2025 1:38 PM EDT Height 154.9 cm (5' 1 ) 02/10/2025 1:23 PM EDT Body Mass Index 39.07 02/10/2025 1:23 PM EDT Plan of Treatment Upcoming Encounters Date Type Department Care Team (Late st Contact Info) Description 05/22/2025 1:30 PM EDT Office Visit [facility] [address] [place] [address] Diaz Dalton MD [address] [place] [address] 05/26/2025 1:20 PM EDT Consult CHELSEY CARRERA [address] [place] [address] [place] [address] Feliz Benz, [address] [place] [address] [place] [address] 06/03/2025 1:30 PM EDT Office Visit [facility] [address] [place] [address] Shama Strong, PA [address] [place] [address] 08/19/2025 2:00 PM EST Office Visit CHELSEY CARRERA [address] [place] [address] [place] [address] Feliz Benz, [address] [place] [address] Health Maintenance Due Date Last Done Comments CT Colonography 1979 FIT-DNA 1979 FIT 1979 FOBT 1980 Sigmoidoscopy 1979 Diabetes: Urine Protein Screening 10/02/2024 10/02/2023, 06/07/2022, 06/07/2022 Diabetes: Hemoglobin A1C 05/01/2025 025, 11/01/2024, 07/22/2024, Additional history exists Influenza Vaccine (#1) 2025 , 05/20/2019, 04/22/2017, Additional history exists Mammogram 06/30/2025 06/30/2024, 06/05, 06/22/2022 Diabetes: Retinopathy Screening 03/25/2027 03/25/2025, 03/20/2025, 12/09/2024, Additional history exists Cervical Cancer Screening 07/14/2027 HPV/Cotest 07/14/2027 Pap Smear 08/06/2027 08/06/2024, 112 04/2023, 07/14/2022 Colonoscopy 09/12/2034 09/12/2024, 05/2025, 09/12/2024, Additional history exists Colorectal Cancer Screening 09/12/2034 Procedures Procedure Name Priority Date/Time Associated Diagnosis Comments DIABETIC RETINOPATHY SCREENING - OU - BOTH EYES Routine 03/25/2025 1:21 PM EDT KNEE LT WO CON 03/04/2025 3:2 9 PM EDT XR KNEE 1-2 VIEWS LEFT Routine 2:07 PM EDT Acute pain of left knee HEMOGLOBIN A1C Routine 11/01/2024 8:51 AM EST COLONOSCOPY Routine 09/12/2024 11:13 AM EST PAP SMEAR Routine 08/06/2024 12:00 AM EST MM TOMOSYNTHESIS SCREENING BI 06/30/2024 7:52 PM EDT from Last 3 Months or Most Recently Relevant to Health Maintenance Results * Diabetic Retinopathy Screening - OU - Both Eyes (03/25/2025 1:21 PM EDT) Anatomical Region Laterality Modality Head Other Lotus Diego MD OPHTH PHOTOGRAPHY Final Result * KNEE LT WO CON (03/04/2025 3:29 PM EDT) Anatomical Region Laterality Modality Other 03/04/2025 3:29 PM EDT Narrative 03/04/2025 3:32 PM EDT The [place] [id number] Magnetic Resonance Report Signed Patient: CARISSA LOZADA MR#: [id number] : 1980 Acct:[id number] Age/Sex: 44 / F ADM Date: 03/04/25 Loc: MRI Attending Dr: Shama Strong PA Ordering Physician: Shama Strong Date of Service: 03/04/25 Procedure(s): knee LT wo con Accession Number(s): [id number] cc: Shama Strong; Diaz Dalton M.D. [place] [id number] Patient Name: CARISSA LOZADA MRN: [id number] date: 1980 Sex: F Assigned Patient Location: MRI Current Patient Location: MRI Accession/Order Number: [id number] Exam Date: 03/04/2025 15:15 Report Date: 03/04/2025 15:29 At the request of: SHAMA KAPLAN Procedure: MR knee LT wo con MRI of the leftKnee without contrast TECHNIQUE: Multiplanar T1 and T2-weighted imaging of the knee obtained without contrast HISTORY: Acute left knee pain. Popping sensation. Unable to extend knee. COMPARISON:None BONE MARROW: No infiltrative changes. BONE MARROW EDEMA: None FRACTURE: None BONE TUMOR: None BONY ALIGNMENT: Adequate DEGENERATION: No significant spurring or joint space narrowing. JOINT EFFUSION: Small joint effusion MUSCLES: Unremarkable SOFT TISSUES: Unremarkable POPLITEAL CYST: None ANTERIOR CRUCIATE LIGAMENT: Intact POSTERIOR CRUCIATE LIGAMENT: Intact LATERAL COMPARTMENT: LATERAL MENISCUS: Increased T1 signal intensity within the substance of the lateral meniscus. May represent mucoid degeneration or intrasubstance tear.. No definite articular surface tear. LATERAL ARTICULAR CARTILAGE: Intact. No osteochondral defect. No subcuticular bone marrow edema. PROXIMAL TIBIOFIBULAR JOINT: Intact POSTERIOR LATERAL COMPARTMENT: Intact lateral collateral ligament complex. Intact biceps femoris tendon. Intact popliteus tendon. COMMON PERONEAL NERVE: Intact MEDIAL COMPARTMENT: MEDIAL MENISCUS: Increased T1 signal intensity within the substance of the meniscus. Consideration for mucoid degeneration versus intrasubstance tear. No definite articular surface tear. MEDIAL ARTICULAR SURFACE: No chondromalacia. No subarticular bone marrow edema. POSTERIOR MEDIAL COMPARTMENT: Medial collateral ligament complex intact. The semimembranosus tendon intact. No ramp lesion of the posterior horn of medial meniscus present. PATELLOFEMORAL COMPARTMENT: PATELLOFEMORAL ARTICULAR CARTILAGE: Patellar chondromalacia. Heterogeneous changes of the articular cartilage. No underlying bone marrow edema. ANTERIOR LIGAMENTS: Patellar ligament and quadriceps tendon are intact. MR/MR knee LT wo con IMPRESSION: Increased T1 signal changes within the substances of the menisci bilaterally. May represent mucoid degeneration. Additional consideration for intrasubstance tear. No Articular surface tear. Intact ACL and PCL. Small joint effusion. Patellar chondromalacia. Impression dictated by: Gallito Torres M.D. 03/04/2025 3:29 PM Dictation Location: [place] [address] Electronically authenticated by: [id number] Y Date: 03/04/2025 15:29 Dictated By: Gallito Torres D.O. Signed By: 03/04/25 1532 DD/ 1529 TD/TT: Finishing Operator: Procedure Note Radiology, Radiologist, MD - 03/04/2025 [place] [address] Magnetic Resonance Report Signed Patient: CARISSA LOZADA RMR#: [id number] : 1980Acct:[id number] Age/Sex: 44 / FADM Date: 03/04/25 Loc: MRI Attending Dr: Shama KAPLAN Ordering Physician: Shama Strong Date of Service: 03/04/25 Procedure(s): MR knee LT wo con Accession Number(s): [id number] cc: Shama Strong; Diaz Dalton M.D. The [place] [id number] Patient Name: CARISSA LOZADA MRN: [id number] date: 1980 Sex: F Assigned Patient Location: MRI Current Patient Location: MRI Accession/Order Number: [id number] Exam Date: 03/04/2025 15:15 Report Date: 03/04/2025 15:29 At the request of: SHAMA KAPLAN Procedure: MR knee LT wo con MRI of the leftKnee without contrast TECHNIQUE: Multiplanar T1 and T2-weighted imaging of the knee obtainedwithout contrast HISTORY: Acute left knee pain. Popping sensation. Unable to extend knee. COMPARISON:None BONE MARROW: No infiltrative changes. BONE MARROW EDEMA: None FRACTURE: None BONE TUMOR: None BONY ALIGNMENT: Adequate DEGENERATION: No significant spurring or joint space narrowing. JOINT EFFUSION: Small joint effusion MUSCLES: Unremarkable SOFT TISSUES: Unremarkable POPLITEAL CYST: None ANTERIOR CRUCIATE LIGAMENT: Intact POSTERIOR CRUCIATE LIGAMENT: Intact LATERAL COMPARTMENT: LATERAL MENISCUS: Increased T1 signal intensity within the substance ofthe lateral meniscus. May represent mucoid degeneration or intrasubstancetear.. No definite articular surface tear. LATERAL ARTICULAR CARTILAGE: Intact. No osteochondral defect. No subcuticular bone marrow edema. PROXIMAL TIBIOFIBULAR JOINT: Intact POSTERIOR LATERAL COMPARTMENT: Intact lateral collateral ligamentcomplex. Intact biceps femoris tendon. Intact popliteus tendon. COMMON PERONEAL NERVE: Intact MEDIAL COMPARTMENT: MEDIAL MENISCUS: Increased T1 signal intensity within the substance ofthe meniscus. Consideration for mucoid degeneration versus intrasubstancetear. No definite articular surface tear. MEDIAL ARTICULAR SURFACE: No chondromalacia. No subarticular bone marrow edema. POSTERIOR MEDIAL COMPARTMENT: Medial collateral ligament complex intact.The semimembranosus tendon intact. No ramp lesion of the posterior horn ofmedial meniscus present. PATELLOFEMORAL COMPARTMENT: PATELLOFEMORAL ARTICULAR CARTILAGE: Patellar chondromalacia.Heterogeneous changes of the articular cartilage. No underlying bone marrow edema. ANTERIOR LIGAMENTS: Patellar ligament and quadriceps tendon are intact. MR/MR knee LT wo con IMPRESSION: Increased T1 signal changes within the substances of themenisci bilaterally. May represent mucoid degeneration. Additional considerationfor intrasubstance tear. No Articular surface tear. Intact ACL and PCL.Small joint effusion. Patellar chondromalacia. Impression dictated by: Gallito Torres M.D. 03/04/2025 3:29 PM Dictation Location: [place] [address] Electronically authenticated by: [id number] Y Date: 5:29 Dictated By: Gallito Torres D.O. Signed By:03/04/25 1532 DD/ 1529 TD/TT: Finishing Operator: us Shama KAPLAN [facility] Final Resul t * XR knee 1 or 2 views left (02/25/2025 2:07 PM EDT) Anatomical Region Laterality Modality Lower Extremities, Knee Left Radiogra [facility] Imaging Narrative 02/25/2025 2:31 PM EDT Image result: AP and Lateral left knee: No acute fracture or dislocation [place] suspected distal femur Symmetric joint space preservation Mild effusion Impression: no acute bony process left knee. us Shama KAPLAN IMG XR PROCEDURES Final Resul t * (ABNORMAL) Hemoglobin A1c (11/01/2024 8:51 AM EST) HEMOGLOBIN A1C 12.8(H) 4.4 - 5.6 % [facility] Comment: NOTE ADA Guidelines Result HgbA1c Normal : less than 5.7 % Prediabetes : 5.7 % to 6.4 % Diabetes : > 6.4 % Use with caution in patients with abnormal hemoglobin variants as the half-life of red blood cells and in vivo glycation rates are affected. AVERAGE GLUCOSE 321 mg/dL [facility] Comment:PERFORMED AT [facility] [address],[place] [address] 11/01/2024 8:51 AM EST 11/01/2024 8:52 AM EST Diaz Dalton MD LAB BLOOD ORDERABLES Final Resul t [facility] * Colonoscopy (09/12/2024 11:13 AM EST) Anatomical Region Laterality Modality Endoscopy Marques Szymanski DO ENDOSCOPY PROCEDURE ORDERABLE S Final Result * Pap Smear (08/06/2024 12:00 AM EST) Swab Cervical swab / Unknown Demar Alexander [facility] LAB CYTOLOGY ORDERABLES Final Result EXTERNAL LAB * MM TOMOSYNTHESIS SCREENING BI (06/30/2024 7:52 PM EDT) Anatomical Region Laterality Modality Other 06/30/2024 7:52 PM EDT Narrative 06/30/2024 7:54 PM EDT The [address] [address] Mammography Report Signed Patient: CARISSA LOZADA MR#: [id number] : 1980 Acct:[id number] Age/Sex: 43 / F ADM Date: 06/28/24 Loc: MAMMO Attending Dr: Feliz Benz D.O. Ordering Physician: Feliz Benz D.O. Results: Date of Service: 06/28/24 Follow Up: Procedure(s): MM tomosynthesis screening BI Accession Number(s): [id number] cc: Feliz Benz D.O.; Diaz Dalton M.D. Patient Name: CARISSA LOZADA MR#: [id number] : 1980 Exam Date: 06/28/2024 Ordering Doctor: [...] Family Cancers None LOCATION: [facility] BREAST COMPOSITION: There are scattered areas [...] M.D. Signed By: 06/30/241953 DD/ 51 TD/TT: Finishing Operator: Procedure Note Radiology, Radiologist, - 06/30/[address] [address] Mammography Report Signed Patient: CARISSA LOZADA RMR#: [id number] : 1980Acct:[id number] Age/Sex: 43 / FADM Date: 06/28/24 Loc: MAMMO Attending Dr: Feliz Benz D.O. Ordering Physician: Feliz Benz D.O.Results: Date of Service: 06/28/24Follow Up: Procedure(s): MM tomosynthesis screening BI Accession Number(s): [id number] cc: Feliz Benz D.O.; Diaz Dalton M.D. Patient Name: CARISSA LOZADA MR#: [id number] : 1980 Exam Date: 06/28/2024 Ordering Doctor: DR Feliz Benz . RADIOLOGY REPORT PROCEDURE: MM TOMOSYNTHESIS SCREENING BI COMPARISON: MM TOMOSYNTHESIS SCREENING BI, 06/26/2023. MG MAMM [id number] DINAH CAD, 06/22/2022. MG MAMM SCREEN 3D DINAH CAD, 06/21/2021. MG MAMM BILDIAG W CAD, 02/02/2016. INDICATIONS: Screening Calculator Name NCI Breast Cancer Risk Assessment Tool 5 Year Breast Cancer Risk 0.80% Lifetime Breast Cancer Risk 9.80% Personal Breast Cancer No Personal Ovarian Cancer No Treatments None Family Cancers None LOCATION: [facility] BREAST COMPOSITION: There are scattered areas [...] Gunn M.D. Signed By:06/30/241953 DD/ 51 TD/TT: Finishing Operator: us Feliz Benz DO [facility] Final Result from Last 3 Months or Most Recently Relevant to Health Maintenance Insurance MEDICAID [place] Care Teams Sales Marketing Manager Relationship Specialty Start Date End Date Diaz Dalton MD [address] [facility] [place] [address] PCP - General Family Medicine 09/25/23
--- OUTSIDE RECORDS SUMMARY | 2025-04-24 13:15 | XMS_ITS | Encounter Summary ---
Author Organization [facility] Address [address] [place] [address] Care Team Providers Care Television Schedule Coordinator Name Role Phone Diaz Dalton MD Primary Care Provider Encounter Details Date Type Department Care Team ([facility] Contact Info) Description 11/04/2024 Orders Only [facility] [address] [place] [address] Diaz Dalton MD [address] [place] [address] Social History Tobacco Use Types Packs/Day Years [...] Upcoming Encounters Date Type Department Care Team ([facility] Contact Info) Description 05/22/2025 1:30 PM EDT Office Visit [facility] [address] [place] [address] Diaz Dalton MD [address] [place] [address] 05/26/2025 1:20 PM EDT Consult CHELSEY CARRERA [address] [facility] [place] [address] Feliz Benz, DO [address] [facility] [place] [address] 06/03/2025 1:30 PM EDT Office Visit [facility] [address] [place] [address] Cholo Strong PA [address] [place] [address] 08/19/2025 2:00 PM EST Office Visit CHELSEY CARRERA [address] [facility] [place] [address] Feliz Benz, [address] [facility] [address] [place], [place] [phone] documented as of this encounter Visit Diagnoses Not on filedocumented in this encounter Care Teams Television Schedule Coordinator Relationship Specialty Start Date End Date Diaz Dalton MD [address] [place] [address] PCP - General Family Medicine 09/25/23 documented as of this encounter
--- OUTSIDE RECORDS SUMMARY | 2025-04-24 13:15 | XMS_ITS | Encounter Summary ---
Author Organization [facility] Address [address] [place] [address] Care Team Providers Care Satellite Project Site Monitor Name Role Phone Diaz Dalton MD Primary Care Provider [phone] Reason for Visit * Reason Onset Date Comments Medial aspect of her eye and nose 04/23/2025 Encounter Details Date Type Department Care Team ([facility] Contact Info) Description 04/23/2025 Telephone [facility] [address] [place] [address] Jr. Harinder Jackson, DO [address] [address] Medial aspect of her eye and nose Social History Tobacco Use Types Packs/Day Years [...] encounter Miscellaneous Notes * Telephone Encounter - Tracy Olivera - 04/23/2025 9:37 AM EDT Patient seen Dr. Jackson 04/22/25, She is going to have Surgery, but, while she was here Dr Jackson recommended that she call her PCP Dr. Dalton about the medial aspect of her left eye and nose, and if he couldn't get her in right away to call us back. She said that he couldn't see her until after her next visit with us, so she called asking what we recommend now. Please advise documented in this encounter Plan of Treatment Upcoming Encounters Date Type Department Care Team (Late st Contact Info) Description 05/22/2025 1:30 PM EDT Office Visit [facility] [address] [place] [phone] Diaz Dalton MD [address] [place] [address] 05/26/2025 1:20 PM EDT Consult CHELSEY CARRERA [address] [facility] [place] [address] Feliz Benz, DO [address] [facility] [address] [place], [place] [phone] 06/03/2025 1:30 PM EDT Office Visit [facility] [address] [place] [address] Cholo Strong PA [address] [place] [address] 08/19/2025 2:00 PM EST Office Visit CHELSEY CARRERA [address] [facility] [place] [address] Feliz Benz DO [address] [place] [address] documented as of this encounter Visit Diagnoses Not on filedocumented in this encounter Care Teams Satellite Project Site Monitor Relationship Specialty Start Date End Date iDaz Dalton MD [address] [place] [address] PCP - General Family Medicine 09/25/23 documented as of this encounter
--- OUTSIDE RECORDS SUMMARY | 2025-04-24 13:15 | XMS_ITS | Encounter Summary ---
Author Organization [facility] Address [id number] [address] [place] [address] Care Team Providers Care Pricing Supervisor Name Role Phone Diaz Dalton MD Primary Care Provider [phone] Encounter Details Date Type Department Care Team ([facility] st Contact Info) Description 02/20/2024 Orders Only [facility] Pulmonary/Sleep Medicine [address] [address] Cristina Arrieta DO [address] [facility] [address] [place] [address] Social History Tobacco Use Types Packs/Day Years Used Date Smoking Tobacco: Never Smokeless Tobacco: Never Alcohol Use Standard Drinks/Week Comments Yes 0 (1 standard drink = 0.6 oz pur e alcohol) occasionally-once a month [facility] Utilities Answer Date Recorded In the past 12 months has [employer], gas, oil, or water rocket staff threatened to shut off services in your [...] often do you attend chur ch or catholic services? Never 12/20/2023 Do you belong to any clubs o r organizations such as sikh groups, unions, fraternal or athletic groups, or [...] Answer Date Recorded Total Score 4 06/05/2023 [facility] - Occupational [...] Recorded Do you need help finding a [facility] career center and/or a training program? No [...] Cardiology [address] [place] [address] Adriane Woods, HAIR BOILER-STRIP FEEDER [address] [place] [address] documented as of this encounter Visit Diagnoses Not on filedocumented in this encounter Additional Health Concerns Infection Onset Date Last Indicated Resolved Time COVID-19 Rule-Out 07/21/2024 07/21/2024 07/21/2024 6:08 PM EST Assessment Noted Time PHQ-9 Depression Total Score: 4 06/05/20 23 1:13 AM EDT documented as of this encounter Care Teams Pricing Supervisor Relationship Specialty Start Date End Date Diaz Dalton MD PCP - General Family Medicine 10/27/24 documented as of this encounter
--- OUTSIDE RECORDS SUMMARY | 2025-04-24 13:15 | XMS_ITS | Encounter Summary ---
Author Organization [facility] Address [address] [facility] [place] [address] Care Team Providers Care Psychometrician Name Role Phone Diaz Dalton MD Primary Care Provider [phone] Reason for Visit * Reason Comments Med Refill Encounter Details Date Type Department Care Team ([facility] Contact Info) Description 11/16/2023 Refill [facility] [address] [place] [address] Diaz Dalton MD [address] [place] [address] Irritable bowel syndrome with diarrhea (Primary Dx) Social History Tobacco Use Types [...] encounter Miscellaneous Notes * Telephone Encounter - Diaz Dalton MD - 11/17/2023 10:02 AM EDT Check BS morning of surgery. If over 120 take 1/2 of usual dose of insulin. * Telephone Encounter - PREMA STRONG - 11/17/2023 8:41 AM EDT Patient called states she is having a biopsy done November 21 and they told her to ask her pcp how much insulin she should take prior to procedure. clm documented in this encounter Plan of Treatment Upcoming Encounters Date Type Department Care Team (Late st Contact Info) Description 05/22/2025 1:30 PM EDT Office Visit [facility] [place] [address] [place] [address] Diaz Dalton MD [address] [place] [address] 05/26/2025 1:20 PM EDT Consult NOMGer C[facility] [address] [facility] [place] [address] Feliz Benz, [address] [facility] [address] [place], [place] [phone] 06/03/2025 1:30 PM EDT Office Visit [facility] [address] [facility] [place] [address] Cholo Strong PA [address] [place] [address] 08/19/2025 2:00 PM EST Office Visit [facility] [address] [facility] [address] Feliz Benz DO [address] [place], [place] [phone] documented as of this encounter Visit Diagnoses Diagnosis Irritable bowel syndrome with diarrhea- Primary Irritable bowel syndrome documented in this encounter Care Teams Psychometrician Relationship Specialty Start Date End Date Diaz Dalton MD [address] [place] [address] PCP - General Family Medicine 09/25/23 documented as of this encounter
--- OUTSIDE RECORDS SUMMARY | 2025-04-24 13:15 | XMS_ITS | Clinical Summary ---
Author Organization [employer] Address [id number] [address] [place] [address] Care Team Providers Care Harpsichord Maker Name Role Phone Diaz Dalton MD Primary Care Provider [phone] Allergies Active Allergy Reactions Criticality Noted Date Comments Sulfamethoxazole-Trimethop rim Hives,Itching,Other (See Comments) Medium 12/13/2011 Medications atorvastatin (LIPITOR) 40 mg tablet Take 1 tablet (40 mg total) by mouth in the morning. Active buPROPion XL (WELLBUTRIN XL) 300 mg 24 hr tablet Take 1 tablet (300 mg total) by mouth every morning. Active lamoTRIgine (LaMICtal) 200 mg tabletIndications: depression associated with bipolar disorder Take 1 tablet (200 mg total) by mouth in the morning. Indications: bipolar depression. Active pantoprazole (PROTONIX) 40 mg EC tablet Take 1 tablet (40 mg total) by mouth every morning before breakfast. Active sertraline (ZOLOFT) 100 mg tablet Take 1 tablet (100 mg total) by mouth in the morning. Active cholecalciferol, vitamin D3, 400 units tablet Take 1 tablet (400 Units total) by mouth in the morning. Active insulin glargine (LANTUS) 100 unit/mL injection Inject 0.15 mL (15 Units total) under the skin in the morning. Active albuterol (PROVENTIL HFA;VENTOLIN HFA) 90 mcg/actuation inhalerIndications :Hypoxia Inhale 2 puffs every 6 (six) hours as needed for wheezing or shortness of breath. 18 g 4 Active lisinopriL (PRINIVIL,ZESTRIL) 2.5 mg tablet take 1 tablet by mouth every morning 30 tablet 2 4 Active topiramate (TOPAMAX) 25 mg capsule Take 1 capsule (25 mg total) by mouth in the morning and 1 capsule (25 mg total) before bedtime. Active dicyclomine (BENTYL) 20 mg tablet Take 1 tablet (20 mg total) by mouth every 6 (six) hours. Active cyclobenzaprine (FLEXERIL) 10 mg tablet Take 1 tablet (10 mg total) by mouth 3 (three) times a day as needed for muscle spasms. 30 tablet 4 Active naproxen (NAPROSYN) 500 mg tablet Take 1 tablet (500 mg total) by mouth in the morning and 1 tablet (500 mg total) in the evening. Take with meals. 30 tablet 4 Active furosemide (LASIX) 20 mg tabletIndications: Dyspnea on exertion,Pulmonary hypertension (CMS-HCC) Take 1 tablet (20 mg total) by mouth daily. 90 tablet 3 4 Active clonazePAM (KlonoPIN) 1 mg tablet Take 1 tablet (1 mg total) by mouth as needed in the morning and 1 tablet (1 mg total) as needed in the evening for seizures. Active citalopram (CeleXA) 20 mg tablet 4 Active FREESTYLE CEDRIC 14 DAY SENSOR kit 4 Active insulin aspart U-100 (NovoLOG) 100 unit/mL (3 mL) insulin pen in the morning and at noon and in the evening. Take with meals. Active nabumetone (RELAFEN) 500 mg tablet Take 1 tablet (500 mg total) by mouth as needed in the morning and 1 tablet (500 mg total) as needed in the evening. 4 Active LORazepam (ATIVAN) 1 mg tablet Take 1 tablet (1 mg total) by mouth as needed in the morning and 1 tablet (1 mg total) as needed at noon and 1 tablet (1 mg total) as needed in the evening. 4 Active empagliflozin (JARDIANCE) 10 mg tablet tablet Take 1 tablet (10 mg total) by mouth in the morning. 90 tablet 3 5 Active tirzepatide (MOUNJARO) 5 mg/0.5 mL pen injectorIndication s:Type 2 diabetes mellitus with hyperglycemia, with long-term current use of insulin ([facility]) Inject 5 mg under the skin every 7 days. 6 mL 3 5 Active ondansetron ODT (ZOFRAN ODT) 4 mg disintegrating tablet Dissolve 1 tablet (4 mg total) on tongue every 8 (eight) hours as needed for nausea for up to 10 doses. 10 tablet 5 Active TRELEGY ELLIPTA 200-62.5-25 mcg blister with device Inhale 1 puff in the morning. 60 each 11 5 Active Active Problems Problem Noted Date Diagnosed Date HTN (hypertension) 01/01/2025 Chronic heart failure with preserved ejection fr action 10/07/2024 COPD (chronic obstructive pulmonary disease) BMI 40.0-44.9, adult 06/20/2024 Pulmonary hypertension 06/20/2024 Moderate persistent asthma without complication 02/19/2024 Chronic hypoxic respiratory failure 02/19/2024 Pulmonary nodule 02/08/2024 Dyspnea on exertion 02/08/2024 Acute cystitis without hematuria 12/21/2023 Mediastinal lymphadenopathy 11/09/2023 Hyperlipidemia associated with type 2 diabetes m ellitus 07/13/2023 Abnormal ECG during exercise stress test 023 Chest wall pain 06/04/2023 Gastroesophageal reflux disease 04/06/2023 Mild developmental delay 09/29/2021 Hyperglycemia 03/01/2019 Edema 01/02/2012 Dyslipidemia 04/22/2010 Type 2 diabetes mellitus wit h hyperglycemia, with long-term current use of insulin 09/30/2009 Obstructive sleep apnea syndrome 09/30/2009 Resolved Problems Problem Noted Date Diagnosed Date Resolved Date COPD exacerbation 07/21/2024 10/07/2024 Severe obesity (BMI >= 40) 06/05/2023 1 Unstable angina pectoris 06/05/202305/2023 Encounters Date Type Department Care Team Description 03/24/2025 Refill [facility] [address] [place] [address] Silvia Otero RMA 03/13/2025 9:30 AM EDT Office Visit [facility] [address] [address] Cristina Arrieta, Moderate persistent asthma without complication (Primary Dx); Chronic hypoxic respiratory failure ([facility]) 03/13/2025 Telephone [facility] [address] [address] Silvia Otero, [facility] 03/13/2025 Travel 03/11/2025 Telephone [facility] Medication Management [address] [place] [address] Medication Management, [facility] 03/05/2025 Telephone [facility] Medication Management [address] [place] [address] Medication Management, [facility] 03/05/2025 Telephone [facility] Card[facility] [address] [place] [address] Jorge L Givens RN PPMM referral 02/26/2025 Refill [facility] [address] [place] [address] Cristina Arrieta, 02/25/2025 Telephone [facility] [address] [place] [address] Silvia Otero, [facility] 02/17/2025 Telephone [facility] [address] [place] [address] Silvia Otero, [facility] 02/03/2025 9:21 AM EDT - 02/03/2025 11:59 PM EDT Hospital Encounter [facility] - Pulmonary Function [address] [place] [address] Cristina Arrieta, Moderate persistent asthma without complication; Chronic hypoxic respiratory failure ([facility]) Discharge Disposition: Home 02/03/2025 Travel from Last 3 Months Immunizations Immunization Administration Dates Next Due Tdap 04/09/2021 Family History Medical History Relation Name Comments Cancer Father Diabetes Mother Heart attack Mother Anesthesia problems Neg Hx Relation Name Status Comments Father Mother Alive Social History Tobacco Use Types Packs/Day Years Used Date Smoking Tobacco: Never Smokeless Tobacco: Never Alcohol Use Standard Drinks/Week Comments Not Currently 0 (1 standard drink = 0.6 oz pur e alcohol) [facility] Utilities Answer Date Recorded In the past [...] often do you attend chur ch or judaism services? Never 12/20/2023 Do you belong to any clubs o r organizations such as hoahaoism groups, unions, fraternal or athletic groups, or [...] Answer Date Recorded Total Score 4 06/05/2023 [facility] of Occupat ional Health - Occupational Stress [...] Recorded Do you need help finding a [facility] Enerkem center and/or a training program? No 12/20/2023 [...] Sign Reading Time Taken Comments Blood Pressure 131/77 03/13/2025 9:01 AM EDT Pulse 81 03/13/2025 9:01 AM EDT Temperature 36.9 C (98.4 F) 10/27/2024 3:00 PM EST Respiratory Rate 16 10/27/2024 6:57 PM EST Oxygen Saturation 100% 03/13/2025 9:01 AM EDT 3 liters Inhaled Oxygen Concentration - - Weight 97.1 kg (214 lb) 03/13/2025 9:01 AM EDT Height 154.9 cm (5' 1 ) 03/13/2025 9:01 AM EDT Body Mass Index 40.43 03/13/2025 9:01 AM EDT Plan of Treatment Upcoming Encounters Date Type Department Care Team (Late st Contact Info) Description 07/07/2025 9:30 AM EST Office Visit [facility] [address] [place] [address] Adriane Woods, BUDGET CONSULTANT-RESEARCH ASSISTANT MEMBER [address] [place] [phone] Health Maintenance Due Date Last Done Comments Diabetic Ophthalmology Exam 1979 Statin Use: Diabetic 1979 Adult BMI Follow Up Plan 1997 Diabetic Foot Exam 1997 COVID-19 Vaccine (2023-2 5 season) 2024 07/01/2021, 06/09/2021 Depression Screening 06/05/2024 06/05/2023 Influenza Vaccine 05/05/2025 06/15/2020, , 04/22/2017, Additional history exists Tobacco Screening 01/03/2026 01/03/2025 Adult BMI Screening 03/13/2026 03/13/2025 Pap Smear 08/06/2027 08/06/2024, 07/06, 07/14/2022 Colonoscopy 09/12/2029 09/12/2024, 05/2025, 09/12/2024 DTaP,Tdap and Td Vaccines (2 - Td or Tdap) 04/09/2031 04/09/2021 Goals Goal Patient Goal Type Associated Problems Recent Progress Patient-Stated? Author Home with self care General Yes Stacey Smith, RN Note: Evaluation of progress towards goal: Patient plans to return home with self care. Medical Devices Not on file Procedures Procedure Name Priority Date/Time Associated Diagnosis Comments SPIROMETRY PRE/POST BRONCHODILATOR AND DLCO Routine 02/03/2025 9:45 AM EDT Moderate persistent asthma without complication Chronic hypoxic respiratory failure ([facility]) PROVATION COLONOSCOPY Routine 09/12/2024 9:04 AM EST from Last 3 Months or Most Recently Relevant to Health Maintenance Results * SPIROMETRY PRE/POST BRONCHODILATOR AND DLCO (02/03/2025 9:45 AM EDT) Narrative MANUALLY TRANSCRIBED RESULTS - 02/13/2025 2:46 PM EDT Patient gave good effort and data is reproducible FEV1/FVC is 88 with FEV1 88% predicted or 2.1 L in forced vital capacity 77% predicted or 2.39 L. There is no significant post bronchodilator response. Diffusion capacity is moderately impaired at 51. Findings favor mild restrictive physiology possibly however repeat testing utilizing lung volumes maybe of benefit to further characterize. Please correlate with clinical and radiographic data us Cristina Arrieta DO PFT ORDERABLES Final Result MANUALLY TRANSCRIBED RESULTS * Colonoscopy Report (09/12/2024 9:04 AM EST) Narrative SYSTEMGENERATED, DOCUMENTATION - 09/12/2024 9:04 AM EST This order has been auto-finalized for image and report archival in PACs. *For full report details, please reach out to your physician. This image is visible to you in MyChart.* us Marques Szymanski DO IMG OR IMG ORDERABLES Final Result from Last 3 Months or Most Recently Relevant to Health Maintenance Insurance MEDICAID [place] Advance Directives * Full Code (Latest Code Status on File) Date Activated Date Inactivated Comments 07/21/2024 10:40 PM 07/23/2024 7:57 PM * Full Code Date Activated Date Inactivated Comments 12/20/2023 10:13 PM 12/23/2023 5:45 PM * Full Code Date Activated Date Inactivated Comments 06/05/2023 6:38 AM 06/05/2023 7:25 PM * Full Code Date Activated Date Inactivated Comments 03/02/2019 2:48 PM 03/03/2019 5:59 PM Care Teams Harpsichord Maker Relationship Specialty Start Date End Date Diaz Dalton MD PCP - General Family Medicine 10/27/24
--- OUTSIDE RECORDS SUMMARY | 2025-04-24 13:15 | XMS_ITS | Encounter Summary ---
Author Organization [facility] [employer] Address [facility] [place] [id number] [address] [place] [address] Care Team Providers Care Algebraist Name Role Phone Diaz Dalton MD Primary Care Provider [phone] Encounter Details Date Type Department Care Team (Late st Contact Info) Description 02/19/2024 Telephone [facility] [address] [place] [address] Stella Reyes RN Social History Tobacco Use Types Packs/Day Years Used Date Smoking Tobacco: Never Smokeless Tobacco: Never Alcohol Use Standard Drinks/Week Comments Yes 0 (1 standard drink = 0.6 oz pur e alcohol) occasionally-once a month [facility] Utilities Answer Date Recorded In the [...] often do you attend chur ch or hinduism services? Never 12/20/2023 Do you belong to any clubs o r organizations such as zoroastrian groups, unions, fraternal or athletic groups, or [...] Answer Date Recorded Total Score 4 06/05/2023 [facility] of Occupat ional Health - Occupational Stress [...] Recorded Do you need help finding a [facility] and/or a training program? No [...] Telephone Encounter - Stella Reyes RN - 02/19/2024 3:15 PM EDT Images from the original note were not included. documented in this encounter Plan of Treatment Upcoming Encounters Date Type Department Care Team (Late st Contact Info) Description 07/07/2025 9:30 AM EST Office Visit [facility] [address] [place] [address] Adriane Woods, HEALTH SCIENCES DEAN-HEAD NECK SURGEON [address] [place] [address] documented as of this encounter Visit Diagnoses Not on filedocumented in this encounter Additional Health Concerns Infection Onset Date Last Indicated Resolved Time COVID-19 Rule-Out 07/21/2024 07/21/2024 07/21/2024 6:08 PM EST Assessment Noted Time PHQ-9 Depression Total Score: 4 06/05/20 23 1:13 AM EDT documented as of this encounter Care Teams Algebraist Relationship Specialty Start Date End Date Diaz Dalton MD PCP - General Family Medicine 10/27/24 documented as of this encounter
--- OUTSIDE RECORDS SUMMARY | 2025-04-24 13:15 | XMS_ITS | Encounter Summary ---
Author Organization [facility] Address [address] [place] [address] Care Team Providers Care Milling Machine Tender Name Role Phone Diaz Dalton MD Primary Care Provider [phone] Encounter Details Date Type Department Care Team ([facility] Contact Info) Description 08/05/2024 Orders Only [facility] [address] [place] [address] Hair See MD [address] [place] [address] Social History Tobacco Use Types Packs/Day Years [...] Upcoming Encounters Date Type Department Care Team ([facility] Contact Info) Description 05/22/2025 1:30 PM EDT Office Visit [facility] [address] [place] [place] [address] Diaz Dalton MD [address] [place] [address] 05/26/2025 1:20 PM EDT Consult [facility] [address] [place] [address] [place] [address] Feliz Benz, DO [address] [place] [address] 06/03/2025 1:30 PM EDT Office Visit [facility] [address] [place] [address] Cholo Strong PA [address] [place] [address] 08/19/2025 2:00 PM EST Office Visit [facility] [address] [place] [address] [place] [address] Feliz Benz, DO [address] [place] [place], [place] [id number] documented as of this encounter Procedures Procedure Name Priority Date/Time Associated Diagnosis Comments BASIC METABOLIC PANEL Routine 07/30/2024 8:42 AM EST documented in this encounter Results * Basic metabolic panel (07/30/2024 8:42 AM EST) Blood Venous blood specimen / Unknown Hair See MD LAB BLOOD ORDERABLES Final Re sult documented in this encounter Visit Diagnoses Not on filedocumented in this encounter Care Teams Milling Machine Tender Relationship Specialty Start Date End Date Diaz Dalton MD [address] [place] [address] PCP - General Family Medicine 09/25/23 documented as of this encounter
--- OUTSIDE RECORDS SUMMARY | 2025-04-24 13:15 | XMS_ITS | Encounter Summary ---
Author Organization [facility] Address [address] [place] [address] Care Team Providers Care Change Consultant Name Role Phone Diaz Dalton MD Primary Care Provider [phone] Reason for Visit * Reason Onset Date Comments Job Interviewer 04/22/2025 Encounter Details Date Type Department Care Team ([facility] Contact Info) Description 04/22/2025 Telephone [facility] [address] [place] [address] Renetta Simons MA Job Interviewer ( ) Social History Tobacco Use Types Packs/Day Years [...] encounter Miscellaneous Notes * Telephone Encounter - Jessenia Donnelly - 04/22/2025 1:49 PM EDT Joyce called returning your call [phone] * Telephone Encounter - Renetta Simons MA - 04/22/2025 10:45 AM EDT Patient is having a left knee scope on June 26, she will come in 06/03 2 1:30 for pre op instructions. I did call her supervisor case loading and leave a voicemail with her to go over upcoming surgery plans. documented in this encounter Plan of Treatment Upcoming Encounters Date Type Department Care Team (Late st Contact Info) Description 05/22/2025 1:30 PM EDT Office Visit [facility] [address] [place] [address] Diaz Dalton MD [address] [place] [address] 05/26/2025 1:20 PM EDT Consult [facility] [address] [facility] [place] [address] Feliz Benz, DO [address] [place] [address] [place] [address] 06/03/2025 1:30 PM EDT Office Visit [facility] [address] [place] [address] Cholo Strong PA [address] [place] [address] 08/19/2025 2:00 PM EST Office Visit [facility] [address] [place] [address] Feliz Benz, DO [address] [place] [address] documented as of this encounter Visit Diagnoses Not on filedocumented in this encounter Care Teams Change Consultant Relationship Specialty Start Date End Date Diaz Dalton MD [address] [place] [address] PCP - General Family Medicine 09/25/23 documented as of this encounter
--- OUTSIDE RECORDS SUMMARY | 2025-04-24 13:15 | XMS_ITS | Encounter Summary ---
Author Organization [facility] Address [address] [place] [address] Care Team Providers Care Chemical Blender Name Role Phone Diaz Dalton MD Primary Care Provider [phone] Diaz Dalton MD Primary Care Provider [phone] Encounter Details Date Type Department Care Team (Late Contact Info) Description 04/06/2023 Abstract [facility] [address] [place] [phone] Barry Martinez, ELECTRIC NEEDLE SPECIALIST [address] [place] [address] Social History Tobacco Use Types Packs/Day Years Used Date Smoking Tobacco: Never Alcohol Use Standard Drinks/Week Comments [...] Upcoming Encounters Date Type Department Care Team ([facility] Contact Info) Description 05/22/2025 1:30 PM EDT Office Visit [facility] [address] [place] [address] Diaz Dalton MD [address] [place] [phone] 05/26/2025 1:20 PM EDT Consult [facility] [address] [facility] [place] [address] Feliz Benz, DO [address] [facility] [address] [place] [place], [place] [id number] 06/03/2025 1:30 PM EDT Office Visit [facility] [address] [place] [address] Cholo Strong, PA [address] [place] [address] 08/19/2025 2:00 PM EST Office Visit [facility] [address] [facility] [place] [address] Feliz Benz, DO [address] [facility] [place] [address] documented as of this encounter Visit Diagnoses Not on filedocumented in this encounter Care Teams Chemical Blender Relationship Specialty Start Date End Date Diaz Dalton MD PCP - General Family Medicine 03/02/23 09/24/23 Diaz Dalton MD [address] [place] [address] PCP - General Family Medicine 09/25/23 documented as of this encounter
--- OUTSIDE RECORDS SUMMARY | 2025-04-24 13:15 | XMS_ITS | Encounter Summary ---
Author Organization [facility] Address [address] [place] [address] Care Team Providers Care Laborer Car Barn Name Role Phone Diaz Dalton MD Primary Care Provider [phone] Encounter Details Date Type Department Care Team ([facility] Contact Info) Description 05/28/2024 Orders Only [facility] [address] [place] [address] Diaz Dalton MD [address] [place] [address] Social History Tobacco Use Types [...] Upcoming Encounters Date Type Department Care Team ([facility] Contact Info) Description 05/22/2025 1:30 PM EDT Office Visit [facility] [address] [place] [address] Diaz Dalton MD [address] [place] [address] 05/26/2025 1:20 PM EDT Consult [facility]HEL[facility] CARRERA [address] [facility] [place] [address] Feliz Benz, DO [address] [facility] [place] [address] 06/03/2025 1:30 PM EDT Office Visit [facility] [address] [place] [address] Cholo Strong PA [address] [place] [address] 08/19/2025 2:00 PM EST Office Visit [facility] [address] [facility] [place] [address] Feliz Benz, [address] [facility] [address] [place] [place], [place] [id number] documented as of this encounter Visit Diagnoses Not on filedocumented in this encounter Care Teams Laborer Car Barn Relationship Specialty Start Date End Date Diza Dalton MD [address] [place] [address] PCP - General Family Medicine 09/25/23 documented as of this encounter
--- OUTSIDE RECORDS SUMMARY | 2025-04-24 13:15 | XMS_ITS | Encounter Summary ---
Author Organization [facility] Address [address] [place] [address] Care Team Providers Care Transmission Superintendent Name Role Phone Diaz Dalton MD Primary Care Provider [phone] Encounter Details Date Type Department Care Team ([facility] Contact Info) Description 12/12/2023 Abstract [facility] [address] [place] [address] Diaz Dalton MD [address] [place] [address] Social History Tobacco Use Types Packs/Day Years [...] Upcoming Encounters Date Type Department Care Team ([facility] Contact Info) Description 05/22/2025 1:30 PM EDT Office Visit [facility] [address] [place] [address] Diaz Dalton MD [address] [place] [address] 05/26/2025 1:20 PM EDT Consult [facility] CARRERA [address] [facility] [place] [address] Feliz Benz, DO [address] [facility] [place] [address] 06/03/2025 1:30 PM EDT Office Visit [facility] [address] [place] [address] Cholo Strong PA [address] [place] [address] 08/19/2025 2:00 PM EST Office Visit [facility] [address] [facility] [place] [address] Feliz Benz, DO [address] [facility] [address] [place], [place] [address] documented as of this encounter Visit Diagnoses Not on filedocumented in this encounter Care Teams Transmission Superintendent Relationship Specialty Start Date End Date Diaz Dalton MD [address] [place] [address] PCP - General Family Medicine 09/25/23 documented as of this encounter
--- OUTSIDE RECORDS SUMMARY | 2025-04-24 13:15 | XMS_ITS | Encounter Summary ---
Author Organization [facility] Address [address], [address] [place] [address] Care Team Providers Care Allergy And Immunology Specialist Name Role Phone Diaz Dalton MD Primary Care Provider + Reason for Visit * Reason Comments Medication Refill ProAir Encounter Details Date Type Department Care Team (Late st Contact Info) Description 10/11/2021 Refill [facility] [address] [place] [address] Jesus Garcia MD [address] [place], [place] [id number] Medication Refill (ProAir) Social History Tobacco Use Types Packs/Day Years Used Date Smoking Tobacco: Never Smokeless Tobacco: Never Alcohol Use Standard Drinks/Week Comments Never 0 (1 standard drink = 0.6 oz pur e alcohol) Comments Unknown Sex and Gender Information Value Date Recorded Sex Assigned at Not on file Legal Sex Female 2:40 AM EST Gender Identity Not on file Sexual Orientation Not on file documented as of this encounter Plan of Treatment Not on file documented as of this encounter Visit Diagnoses Not on filedocumented in this encounter Care Teams Allergy And Immunology Specialist Relationship Specialty Start Date End Date Diaz Dalton MD [address] [place] [address] PCP - General Family Medicine 09/28/21 documented as of this encounter
--- OUTSIDE RECORDS SUMMARY | 2025-04-24 13:15 | XMS_ITS | Encounter Summary ---
Author Organization [facility] [address] [facility] Address [id number] [address] [place] [address] Care Team Providers Care Lead Enterprise Architect Name Role Phone Diaz Dalton MD Primary Care Provider [phone] Encounter Details Date Type Department Care Team (Late st Contact Info) Description 12/22/2023 Telephone [facility] [address] [place] [address] Gilma Tejada Social History Tobacco Use Types Packs/Day Years Used Date Smoking Tobacco: Never Smokeless Tobacco: Never Alcohol Use Standard Drinks/Week Comments Yes 0 (1 standard drink = 0.6 oz pur e alcohol) occasionally-once a month [facility] Utilities Answer Date Recorded In the past 12 months has th e electric, gas, oil, or water company [...] often do you attend chur ch or baptism services? Never 12/20/2023 Do you belong to any clubs o r organizations such as yarsanism groups, unions, fraternal or athletic groups, or [...] Answer Date Recorded Total Score 4 06/05/2023 [facility] [place] of Occupat ional Health - Occupational Stress [...] encounter Miscellaneous Notes * Telephone Encounter - Gilma Tejada - 12/22/2023 11:28 AM EDT New PT scheduled 02/08/2024 with SE in [facility] for Hypoxia please place order for PFT Thank You for all you do * Telephone Encounter - Stella Reyes RN - 12/22/2023 11:28 AM EDT Order placed. Thanks documented in this encounter Plan of Treatment Upcoming Encounters Date Type Department Care Team (Late st Contact Info) Description 07/07/2025 9:30 AM EST Office Visit [facility] [address] [place] [phone] Adriane Woods, MOLECULAR BIOLOGY SCIENTIST-JAVA SOFTWARE ARCHITECT [address] [place] [address] documented as of this encounter Visit Diagnoses Not on filedocumented in this encounter Additional Health Concerns Infection Onset Date Last Indicated Resolved Time COVID-19 Rule-Out 07/21/2024 07/21/2024 07/21/2024 6:08 PM EST Assessment Noted Time PHQ-9 Depression Total Score: 4 06/05/20 23 1:13 AM EDT documented as of this encounter Care Teams Lead Enterprise Architect Relationship Specialty Start Date End Date Diaz Dalton MD PCP - General Family Medicine 10/27/24 documented as of this encounter
--- OUTSIDE RECORDS SUMMARY | 2025-04-24 13:15 | XMS_ITS | Encounter Summary ---
Author Organization [employer] [facility] [employer] Address [facility] [id number] [address] [facility] [place] [address] Care Team Providers Care Machine Tool Dresser Name Role Phone Diaz Dalton MD Primary Care Provider [phone] Encounter Details Date Type Department Care Team (Late st Contact Info) Description 08/08/2023 Telephone [facility] [address] [place] [address] Stacey Mtz, GEORGINA Social History Tobacco Use Types Packs/Day Years [...] often do you attend chur ch or orthodox services? Never 06/05/2023 Do you belong to any clubs o r organizations such as evangelical groups, unions, fraternal or athletic groups, or [...] you are drinking? Patient does not drink 3 Q3: How often do you have si x or more drinks on one occasion? Never 06/05/2023 Overall Financial Resource Strain (CARDIA) Answe r Date Recorded How hard is it for you to pa y for the very basics like food, housing, medical care, and heating? Not hard at all 06/05/2023 PHQ-2 Answer Date Recorded Total Score 4 06/05/2023 [facility] of Occupat ional Health - Occupational [...] Recorded Do you need help finding a [facility] career center and/or a training program? No 06/05/2023 Hunger Screening Answer Date Recorded Within the past 12 months we worried whether our food would run out before we got money to buy more. Never True 07/13/2023 Within the past 12 months th e food we bought just didn't last and we didn't have money to get more. Never True 07/13/2023 Purpose - Life Answer Date Recorded I have a purpose and direction in my life. Stron gly Agree 06/05/2023 Comments No Sex and Gender Information Value Date Recorded Sex Assigned at Not on file Legal Sex Female 11:24 AM EDT Gender Identity Not on file Sexual Orientation Not on file documented as of this encounter Miscellaneous Notes * Telephone Encounter - Stacey Mtz RN - 08/08/2023 2:34 PM EST P/C from [facility] radiology with alert of significant abnormal result of CTA coronaries. Arlene at [facility] office notified. documented in this encounter Plan of Treatment Upcoming Encounters Date Type Department Care Team (Late st Contact Info) Description 07/07/2025 9:30 AM EST Office Visit [facility] [address] [place] [address] Adriane Woods K, SODA WORKER-CIRCULATING PROCESS INSPECTOR [address] [place] [address] documented as of this encounter Visit Diagnoses Not on filedocumented in this encounter Additional Health Concerns Infection Onset Date Last Indicated Resolved Time COVID-19 Rule-Out 07/21/2024 07/21/2024 07/21/2024 6:08 PM EST Assessment Noted Time PHQ-9 Depression Total Score: 4 06/05/20 23 1:13 AM EDT documented as of this encounter Care Teams Machine Tool Dresser Relationship Specialty Start Date End Date Diaz Dalton MD PCP - General Family Medicine 10/27/24 documented as of this encounter
--- OUTSIDE RECORDS SUMMARY | 2025-04-24 13:15 | XMS_ITS | Clinical Summary ---
Author Organization [facility] Address [address] [place] [address] Care Team Providers Care Kiss Machine Operator Name Role Phone Diaz Dalton MD Primary Care Provider + Allergies Active Allergy Reactions Criticality Noted Date Comments Sulfamethoxazole-Trimethoprim Itching 2011 Medications hyoscyamine (ANASPAZ;LEVSIN ) [address] 125 mcg under the tongue every 4 hours as needed for Cramping Active clonazePAM (KLONOPIN) 1 MG tablet Take 1 mg by mouth 3 times daily as needed for Anxiety. Active HYDROcodone-marco a taminophen (NORCO) 5-325 MG per tablet Take 1 tablet by mouth every 6 hours as needed for Pain. Active insulin glargine (LANTUS SOLOSTAR) 100 UNIT/ML injection pen Inject into the skin Active PROAIR HFA 108 (90 Base) MCG/ACT inhaler INHALE 2 PUFFS INTO THE LUNGS EVERY 6 HOURS NEEDED FOR WHEEZING OR SHORTNESS OF BREATH 1 each 2 Active Active Problems Problem Noted Date Diagnosed Date Acute kidney injury (DREW) with acute tubular nec rosis (ATN) 09/30/2021 High anion gap metabolic acidosis 09/30/2021 Pneumonia due to infectious organism 09/29/2021 Mental developmental delay 09/29/2021 DKA, type 1, not at goal 09/27/2021 Family History Medical History Relation Name Comments No Known Problems Mother Relation Name Status Comments Mother Alive Social History Tobacco Use Types [...] Sign Reading Time Taken Comments Blood Pressure 126/80 10/03/2021 11:29 AM EST Pulse 85 10/03/2021 11:29 AM EST Temperature 36.4 C (97.5 F) 10/03/2021 11:29 AM EST Respiratory Rate 16 10/03/2021 11:2 9 AM EST Oxygen Saturation 97% 10/03/2021 11: 29 AM EST Inhaled Oxygen Concentration - - Weight 101.2 kg (223 lb 3.2 oz) 09/29/2021 6:00 AM EST Height 152.4 cm (5') 09/28/2021 9:30 AM EST Body Mass Index 43.59 09/28/2021 9:30 AM EST Plan of Treatment Not on file Insurance MEDICAID [place] Advance Directives * Full Code (Latest Code Status on File) Date Activated Date Inactivated Comments 09/28/2021 9:46 AM 10/03/2021 4:19 PM Care Teams Kiss Machine Operator Relationship Specialty Start Date End Date Diaz Dalton MD [address] [place] [address] PCP - General Family Medicine 09/28/21
--- OUTSIDE RECORDS SUMMARY | 2025-04-24 13:15 | XMS_ITS | Encounter Summary ---
Author Organization [facility] [employer] [facility] Address [id number] [address] [place] [address] Care Team Providers Care Terminologist Name Role Phone Diaz Dalton MD Primary Care Provider [phone] Encounter Details Date Type Department Care Team (Late st Contact Info) Description 02/19/2024 Telephone [facility] [address] [facility] [place] [address] Stella Reyes RN Social History Tobacco Use Types Packs/Day Years Used Date Smoking Tobacco: Never Smokeless Tobacco: Never Alcohol Use Standard Drinks/Week Comments Yes 0 (1 standard drink = 0.6 oz pur e alcohol) occasionally-once a month [facility] Utilities Answer Date Recorded In the past [...] often do you attend chur ch or mu-ism services? Never 12/20/2023 Do you belong to any clubs o r organizations such as zoroastrianism groups, unions, fraternal or athletic groups, or [...] Answer Date Recorded Total Score 4 06/05/2023 [facility] of Occupat ional Health - Occupational [...] Recorded Do you need help finding a [facility] career [facility] and/or a training [...] a purpose and direction in my life. Arianna ho Agree 12/20/2023 Comments No Sex and Gender Information Value Date Recorded Sex Assigned at Not on file Legal Sex Female 11:24 AM EDT Gender Identity Not on file Sexual Orientation Not on file documented as of this encounter Miscellaneous Notes * Telephone Encounter - Stella Reyes RN - 02/19/2024 2:08 PM EDT Tire Regrooving Machine Operator spoke to patient and informed per Dr Arrieta, Home O2 reviewed. Patient qualifies for 2L oxygen with exertion and 3L with sleep. DME [facility]. Will need referral to sleep with appointment in [place] office. Patient scheduled 04-09-[address] Germain at 11:00 am at [place] office. Patient will need to complete ECHO with bubble study & CXR. Instructions and scheduling number provided. Recommend patient to start Trelegy 1 puff daily and rinse mouth out after use. May also stop by [place] office if samples. Script sent to [facility] in [place] Patient needs follow up appt in 2weeks with video visit with Dr Arrieta. Patient scheduled for 03-12-24 at 2:00 pm Patient agreeable to above information and verbalized understanding. Placed Appt reminders, Video visit brochure, ECHO and CXR order in outgoing mail to patient. ----- Message from Cristina Arrieta DO sent at 02/19/2024 1:53 PM EDT ----- Home O2 evaluation reviewed. Needs still 2L of oxygen with exertion and 3L with sleep. Will need referral to sleep with appointment in [place] office. Needs ECHO with bubble study, CXR. Please have her start Trelegy 1 puff daily and rinse mouth out after use. May also stop by [place] office if samples. Needs follow up appt in 2weeks with video visit please. Orders for above placed. documented in this encounter Plan of Treatment Upcoming Encounters Date Type Department Care Team (Late st Contact Info) Description 07/07/2025 9:30 AM EST Office Visit [facility] [address] [place] [address] Adriane Woods, WRAPPER STEMMER HAND-BEER BREWER [address] [place] [address] documented as of this encounter Visit Diagnoses Not on filedocumented in this encounter Additional Health Concerns Infection Onset Date Last Indicated Resolved Time COVID-19 Rule-Out 07/21/2024 07/21/2024 07/21/2024 6:08 PM EST Assessment Noted Time PHQ-9 Depression Total Score: 4 06/05/20 23 1:13 AM EDT documented as of this encounter Care Teams Terminologist Relationship Specialty Start Date End Date Diaz Dalton MD PCP - General Family Medicine 10/27/24 documented as of this encounter
--- OUTSIDE RECORDS SUMMARY | 2025-04-24 13:15 | XMS_ITS | Encounter Summary ---
Author Organization [facility] Address [address] [place] [address] Care Team Providers Care Digester Capper Name Role Phone Diaz Dalton MD Primary Care Provider [phone] Diaz Dalton MD Primary Care Provider [phone] Encounter Details Date Type Department Care Team (Late Contact Info) Description 06/30/2023 Clinisync Result Encounter [facility] External Department Unsolicited Erik Benz, DO [address] [place] [address] Social History Tobacco Use Types Packs/Day Years [...] Upcoming Encounters Date Type Department Care Team ([facility] Contact Info) Description 05/22/2025 1:30 PM EDT Office Visit [facility] [address] [place] [address] Diaz Dalton MD [address] [place] [address] 05/26/2025 1:20 PM EDT Consult [facility] [address] [place] [address] [place] [address] Erik Benz, [address] [place] [address] 06/03/2025 1:30 PM EDT Office Visit [facility] [address] [place] [address] Cholo Strong PA [address] [place] [address] 08/19/2025 2:00 PM EST Office Visit [facility] [address] [place] [address] [place] [address] Erik Benz DO [address] [place] [address] [place] [address] documented as of this encounter Procedures Procedure Name Priority Date/Time Associated Diagnosis Comments MM TOMOSYNTHESIS SCREENING BI 06/30/2023 2:59 PM EDT documented in this encounter Results * MM TOMOSYNTHESIS SCREENING BI (06/30/2023 2:59 PM EDT) Anatomical Region Laterality Modality Other 06/30/2023 2:59 PM EDT Narrative 06/30/2023 2:59 PM EDT The [address] [address] Mammography Report Signed Patient: CARISSA LOZADA MR#: [id number] : 1980 Acct:[id number] Age/Sex: 42 / F ADM Date: 06/26/23 Loc: MAMMO Attending Dr: Erik Benz D.O. Ordering Physician: Erik Benz D.O. Results: Date of Service: 06/26/23 Follow Up: Procedure(s): MM tomosynthesis screening BI Accession Number(s): [id number] cc: Erik Benz D.O.; Diaz Dalton M.D. Patient: CARISSA LOZADA Exam Date: 06/26/2023 : 1980 Gender:F Ordering : DR ERIK BENZ . Admission #: [id number] Family : DR Diaz Dalton . Order #: [id number] CLICK HERE TO VIEW EXAM RADIOLOGY REPORT PROCEDURE: MM TOMOSYNTHESIS SCREENING BI COMPARISON: MG MAMM SCREEN 3D DINAH CAD, 06/22/2022. MG MAMM SCREEN 3D DINAH CAD, 06/21/2021. MG MAMM SCREEN DINAH W CAD, 06/19/2020. MG MAMM DINAH DIAG W CAD, 02/02/2016. INDICATIONS: Screening Calculator Name NCI Breast Cancer Risk Assessment Tool 5 Year Breast Cancer Risk 0.70% Lifetime Breast Cancer Risk 9.90% Personal Breast Cancer No Personal Ovarian Cancer No Treatments None Family Cancers None LOCATION: [facility] BREAST COMPOSITION: Scattered areas fibroglandular density. [...] BIOPSIED. Dictated by: Kamron Gunn M.D. on 06/30/2023 at 14:55 Approved by: Kamron Gunn M.D. on 06/30/2023 at 14:59 Dictated By: Kamron Gunn M.D. Signed By: 06/30/23 1500 DD/ 1459 TD/TT: Structural Steel Detailer: Procedure Note Radiology, Radiologist, MD - 06/30/2023 [place] [address] Mammography Report Signed Patient: CARISSA LOZADA RMR#: [id number] : 1980Acct:[id number] Age/Sex: 42 / FADM Date: 06/26/23 Loc: MAMMO Attending Dr: Erik Demar D.O. Ordering Physician: Erik Benz D.O.Results: Date of Service: 06/26/23Follow Up: Procedure(s): MM tomosynthesis screening BI Accession Number(s): [id number] cc: Erik Benz D.O.; Diaz Dalton M.D. Patient: CARISSA LOZADA Exam Date: 06/26/2023 : 1980 Gender:F Ordering : DR ERIK BENZ . Admission #: [id number] Family : DR Diaz Dalton . Order #: [id number] CLICK HERE TO VIEW EXAM RADIOLOGY REPORT PROCEDURE: MM TOMOSYNTHESIS SCREENING BI COMPARISON: MG MAMM SCREEN 3D DINAH CAD, 06/22/2022. MG MAMM SCREEN 3DBIL CAD, 06/21/2021. MG MAMM SCREEN DINAH W CAD, 06/19/2020. MG MAMM DINAH DIAGW CAD, 02/02/2016. INDICATIONS: Screening Calculator Name NCI Breast Cancer Risk Assessment Tool 5 Year Breast Cancer Risk 0.70% Lifetime Breast Cancer Risk 9.90% Personal Breast Cancer No Personal Ovarian Cancer No Treatments None Family Cancers None LOCATION: [facility] BREAST COMPOSITION: Scattered areas fibroglandular density. [...] BIOPSIED. Dictated by: Kamron Gunn M.D. on 06/30/2023 at 14:55 Approved by: Kamron Gunn M.D. on 06/30/2023 at 14:59 Dictated By: Kamron Gunn M.D. Signed By:06/30/231499 DD/ 1459 TD/TT: Structural Steel Detailer: us Erik Benz DO [facility] Final Result documented in this encounter Visit Diagnoses Not on filedocumented in this encounter Care Teams Digester Capper Relationship Specialty Start Date End Date Diaz Dalton MD PCP - General Family Medicine 03/02/23 09/24/23 Diaz Dalton MD [address] [place] [address] PCP - General Family Medicine 09/25/23 documented as of this encounter
--- OUTSIDE RECORDS SUMMARY | 2025-04-24 13:15 | XMS_ITS | Encounter Summary ---
Author Organization [facility] Address [address] [facility] [place] [address] Care Team Providers Care Hospitality Services Manager Name Role Phone Diaz Dalton MD Primary Care Provider [phone] Encounter Details Date Type Department Care Team ([facility] Contact Info) Description 04/14/2025 Bamboo flowsheet [facility] [place] [facility] [address] [facility] [place] [address] Feliz Benz DO [address] [place] [place], [place] [phone] Social History Tobacco Use Types Packs/Day Years [...] Upcoming Encounters Date Type Department Care Team ([facility] Contact Info) Description 05/22/2025 1:30 PM EDT Office Visit [facility] [address] [place] [address] Diaz Dalton MD [address] [place] [address] 05/26/2025 1:20 PM EDT Consult [facility] [address] [facility] [place] [address] Feliz Benz, DO [address] [facility] [address] [place] [address] 06/03/2025 1:30 PM EDT Office Visit [facility] [address] [place] [address] Cholo Strong, PA [address] [place] [address] 08/19/2025 2:00 PM EST Office Visit [facility] [address] [facility] [facility] [place] [address] Feliz Benz, DO [address] [facility] [place], [place] [address] documented as of this encounter Visit Diagnoses Not on filedocumented in this encounter Care Teams Hospitality Services Manager Relationship Specialty Start Date End Date Diaz Dalton MD [address] [place] [address] PCP - General Family Medicine 09/25/23 documented as of this encounter
--- OUTSIDE RECORDS SUMMARY | 2025-04-24 13:15 | XMS_ITS | Encounter Summary ---
Author Organization [facility] Address [address] [place] [address] Care Team Providers Care Metal Grader Name Role Phone Diaz Dalton MD Primary Care Provider [phone] Encounter Details Date Type Department Care Team ([facility] Contact Info) Description 03/25/2025 Orders Only [facility] [address] [place] [address] Lotus Diego MD [address] [place], [place] [phone] Social History Tobacco Use Types Packs/Day Years [...] Upcoming Encounters Date Type Department Care Team ([facility] Contact Info) Description 05/22/2025 1:30 PM EDT Office Visit [facility] [address] [place] [address] Diaz Dalton MD [address] [place] [address] 05/26/2025 1:20 PM EDT Consult [facility]HEL[facility] CARRERA [address] [facility] [place] [address] Feliz Benz, DO [address] [facility] [place] [address] 06/03/2025 1:30 PM EDT Office Visit [facility] [address] [place] [address] Cholo Strong PA [address] [place] [address] 08/19/2025 2:00 PM EST Office Visit [facility] [address] [place] [address] [place] [address] Feliz Benz, DO [address] [place], [place] [address] documented as of this encounter Procedures Procedure Name Priority Date/Time Associated Diagnosis Comments DIABETIC RETINOPATHY SCREENING - OU - BOTH EYES Routine 03/25/2025 1:21 PM EDT documented in this encounter Results * Diabetic Retinopathy Screening - OU - Both Eyes (03/25/2025 1:21 PM EDT) Anatomical Region Laterality Modality Head Other Lotus Diego MD OPHTH PHOTOGRAPHY Final Result documented in this encounter Visit Diagnoses Not on filedocumented in this encounter Care Teams Metal Grader Relationship Specialty Start Date End Date Diaz Dalton MD [address] [place] [address] PCP - General Family Medicine 09/25/23 documented as of this encounter
--- OUTSIDE RECORDS SUMMARY | 2025-04-24 13:15 | XMS_ITS | Encounter Summary ---
Author Organization [facility] Address [address] [facility] [facility] [place] [address] Care Team Providers Care Gum Machine Operator Name Role Phone Diaz Dalton MD Primary Care Provider [phone] Encounter Details Date Type Department Care Team ([facility] Contact Info) Description 04/10/2025 Bamboo flowsheet [facility] [address] [place] [address] Puma Kelly, CMA OR LPN Social History Tobacco Use Types Packs/Day Years [...] Upcoming Encounters Date Type Department Care Team ([facility] Contact Info) Description 05/22/2025 1:30 PM EDT Office Visit [facility] [address] [place] [address] Diaz Dalton MD [address] [place] [address] 05/26/2025 1:20 PM EDT Consult [facility] [address] [place] [address] [place] [address] Feliz Benz, DO [address] [facility] [place] [address] 06/03/2025 1:30 PM EDT Office Visit [facility] [address] [place] [address] Cholo Strong PA [address] [place] [address] 08/19/2025 2:00 PM EST Office Visit [facility] [address] [facility] [place] [address] Feliz Benz, DO [address] [facility] [place] [address] documented as of this encounter Visit Diagnoses Not on filedocumented in this encounter Care Teams Gum Machine Operator Relationship Specialty Start Date End Date Diaz Dalton MD [address] [place] [address] PCP - General Family Medicine 09/25/23 documented as of this encounter
--- OUTSIDE RECORDS SUMMARY | 2025-04-24 13:15 | XMS_ITS | Encounter Summary ---
Author Organization [facility] Address [address] [place] [address] Care Team Providers Care Financial Center Manager Name Role Phone Diaz Dalton MD Primary Care Provider [phone] Encounter Details Date Type Department Care Team ([facility] Contact Info) Description 04/22/2025 Bamboo flowsheet [facility] [address] [place] [address] Jr. Harinder Jackson, DO [address] [id number] Social History Tobacco Use Types Packs/Day Years [...] Upcoming Encounters Date Type Department Care Team ([facility] Contact Info) Description 05/22/2025 1:30 PM EDT Office Visit [facility] [address] [place] [phone] Diaz Dalton MD [address] [place] [address] 05/26/2025 1:20 PM EDT Consult [facility] [address] [place] [address] Feliz Benz, DO [address] [facility] [place] [address] 06/03/2025 1:30 PM EDT Office Visit [facility] [address] [place] [address] Cholo Strong PA [address] [place] [address] 08/19/2025 2:00 PM EST Office Visit [facility] [address] [place] [address] Feliz Benz, [address] [facility] [address] [place], [place] [id number] documented as of this encounter Visit Diagnoses Not on filedocumented in this encounter Care Teams Financial Center Manager Relationship Specialty Start Date End Date Diaz Dalton MD [address] [place] [address] PCP - General Family Medicine 09/25/23 documented as of this encounter
--- OUTSIDE RECORDS SUMMARY | 2025-04-24 13:15 | XMS_ITS | Encounter Summary ---
Author Organization [facility] Address [address] [place] [address] Care Team Providers Care Correctional Supervisor Name Role Phone Diaz Dalton MD Primary Care Provider [phone] Reason for Visit * Reason Comments Med Refill Encounter Details Date Type Department Care Team ([facility] Contact Info) Description 04/20/2025 Refill [facility] [place] [facility] [address] [facility] [place] [phone] Feliz Benz DO [address] [place], [place] [phone] Pelvic pain in female Social History Tobacco Use Types Packs/Day Years [...] Upcoming Encounters Date Type Department Care Team ([facility] Contact Info) Description 05/22/2025 1:30 PM EDT Office Visit [facility] [address] [place] [address] Diaz Dalton MD [address] [place] [phone] 05/26/2025 1:20 PM EDT Consult CHELSEY CARRERA [address] [place] [address] [place] [address] Feliz Benz, [address] [place], [place] [id number] 06/03/2025 1:30 PM EDT Office Visit [facility] [address] [place] [address] Cholo Strong PA [address] [place] [address] 08/19/2025 2:00 PM EST Office Visit [facility] CARRER[facility] [address] [place] [address] [place] [address] Feliz Benz, [address] [place], [place] [id number] documented as of this encounter Visit Diagnoses Diagnosis Pelvic pain in female Unspecified symptom associated with female genital organs documented in this encounter Care Teams Correctional Supervisor Relationship Specialty Start Date End Date Diaz Dalton MD [address] [place] [address] PCP - General Family Medicine 09/25/23 documented as of this encounter
--- OUTSIDE RECORDS SUMMARY | 2025-04-24 13:15 | XMS_ITS | Encounter Summary ---
Author Organization [facility] Address [address] [place] [address] Care Team Providers Care Industrial Hygenist Name Role Phone Diaz Dalton MD Primary Care Provider [phone] Encounter Details Date Type Department Care Team ([facility] Contact Info) Description 08/13/2024 Orders Only [facility] [address] [place] [phone] Tory Kunz LPN [address] [place] [address] Social History Tobacco Use Types [...] Encounters Date Type Department Care Team ([facility] Contact Info) Description 05/22/2025 1:30 PM EDT Office Visit [facility] [address] [place] [phone] Diaz Dalton MD [address] [place] [address] 05/26/2025 1:20 PM EDT Consult CHELSEY CARRERA [address] [place] [address] [place] [address] Feliz Benz, DO [address] [facility] [place] [address] 06/03/2025 1:30 PM EDT Office Visit [facility] [address] [place] [address] Cholo Strong PA [address] [place] [address] 08/19/2025 2:00 PM EST Office Visit [facility]HEL[facility] CARR[facility] [address] [place] [address] [place] [address] Feliz Benz DO [address] [facility] [address] [place], [place] [id number] documented as of this encounter Procedures Procedure Name Priority Date/Time Associated Diagnosis Comments PAP SMEAR Routine 08/06/2024 12:00 AM EST documented in this encounter Results * Pap Smear (08/06/2024 12:00 AM EST) Swab Cervical swab / Unknown Demar Nurse [facility] CYTOLOGY ORDERABLES Final Result EXTERNAL LAB documented in this encounter Visit Diagnoses Not on filedocumented in this encounter Care Teams Industrial Hygenist Relationship Specialty Start Date End Date Diaz Dalton MD [address] [place] [address] PCP - General Family Medicine 09/25/23 documented as of this encounter
--- OUTSIDE RECORDS SUMMARY | 2025-04-24 13:15 | XMS_ITS | Encounter Summary ---
Author Organization [facility] Address [address] [place] [address] Care Team Providers Care Water Pump Operator Name Role Phone Diaz Dalton MD Primary Care Provider [phone] Encounter Details Date Type Department Care Team ([facility] Contact Info) Description 09/12/2024 Orders Only [facility] [address] [place] [address] Marques Szymanski DO [address] [place] [phone] Social History Tobacco Use Types Packs/Day Years [...] Upcoming Encounters Date Type Department Care Team ([facility] Contact Info) Description 05/22/2025 1:30 PM EDT Office Visit [facility] [address] [place] [address] Diaz Dalton MD [address] [place] [address] 05/26/2025 1:20 PM EDT Consult [facility]HELSEY [facility]ARRERA [address] [facility] [place] [address] Feliz Benz, DO [address] [place] [address] 06/03/2025 1:30 PM EDT Office Visit [facility] [address] [place] [address] Cholo Strong PA [address] [place] [address] 08/19/2025 2:00 PM EST Office Visit [facility] [address] [address] Feliz Benz, DO [address] [place] [address] documented as of this encounter Procedures Procedure Name Priority Date/Time Associated Diagnosis Comments COLONOSCOPY Routine 09/12/2024 11:15 AM EST COLONOSCOPY Routine 09/12/2024 11:13 AM EST documented in this encounter Results * Colonoscopy (09/12/2024 11:15 AM EST) Anatomical Region Laterality Modality Endoscopy Marques Szymanski DO ENDOSCOPY PROCEDURE ORDERABLE S Final Result * Colonoscopy (09/12/2024 11:13 AM EST) Anatomical Region Laterality Modality Endoscopy Marques Szymanski DO ENDOSCOPY PROCEDURE ORDERABLE S Final Result documented in this encounter Visit Diagnoses Not on filedocumented in this encounter Care Teams Water Pump Operator Relationship Specialty Start Date End Date Diaz Dalton MD [address] [place] [address] PCP - General Family Medicine 09/25/23 documented as of this encounter
--- OUTSIDE RECORDS SUMMARY | 2025-04-24 13:15 | XMS_ITS | Encounter Summary ---
Author Organization [facility] Address [address] [place] [address] Care Team Providers Care Color Corrector Name Role Phone Diaz Dalton MD Primary Care Provider [phone] Encounter Details Date Type Department Care Team (Latest Contact Info) Description 04/10/2025 Travel Social History Tobacco Use Types Packs/Day Years [...] Encounters Date Type Department Care Team (Late Contact Info) Description 05/22/2025 1:30 PM EDT Office Visit [facility] [address] [place] [address] Diaz Dalton MD [address] [place] [address] 05/26/2025 1:20 PM EDT Consult [facility] [facility] [address] [place] [address] Feliz Benz DO [address] [facility] [place] [address] 06/03/2025 1:30 PM EDT Office Visit [facility] [address] [place] [address] Cholo Strong PA [address] [place] [address] 08/19/2025 2:00 PM EST Office Visit [facility] [place] [facility] [address] [place] [address] Feliz Benz DO [address] [facility] [place] [address] documented as of this encounter Visit Diagnoses Not on filedocumented in this encounter Care Teams Color Corrector Relationship Specialty Start Date End Date Diaz Dalton MD [address] [place] [address] PCP - General Family Medicine 09/25/23 documented as of this encounter
--- OUTSIDE RECORDS SUMMARY | 2025-04-24 13:15 | XMS_ITS | Encounter Summary ---
Author Organization [facility] Address [address] [place] [address] Care Team Providers Care Telephone Lineman Name Role Phone Diaz Dalton MD Primary Care Provider Encounter Details Date Type Department Care Team (Latest Contact Info) Description 04/22/2025 Travel Social History Tobacco Use Types Packs/Day [...] Visit [facility] [address] [place] [address] Diaz Dalton MD [address] [place] [address] 05/26/2025 1:20 PM EDT Consult [facility] [place] [facility] [address] [facility] [place] [address] Feliz Benz DO [address] [facility] [address] 06/03/2025 1:30 PM EDT Office Visit [facility] [address] [place] [address] Cholo Strong PA [address] [place] [address] 08/19/2025 2:00 PM EST Office Visit [facility] [place] [facility] [address] [facility] [place] [address] Feliz Benz DO [address] [facility] [address] documented as of this encounter Visit Diagnoses Not on filedocumented in this encounter Care Teams Telephone Lineman Relationship Specialty Start Date End Date Diaz Dalton MD [address] [place] [address] PCP - General Family Medicine 09/25/23 documented as of this encounter
--- OUTSIDE RECORDS SUMMARY | 2025-04-24 13:16 | XMS_ITS | Encounter Summary ---
Author Organization [facility] Address [address] [place] [address] Care Team Providers Care Funeral Arranger Name Role Phone Diaz Dalton MD Primary Care Provider [phone] Reason for Visit * Reason Comments Med Refill Encounter Details Date Type Department Care Team ([facility] Contact Info) Description 10/18/2023 Refill [facility] [address] [place] [address] Diaz Dalton MD [address] [place] [place] [address] Social History Tobacco Use Types Packs/Day Years [...] Upcoming Encounters Date Type Department Care Team ([facility] Contact Info) Description 05/22/2025 1:30 PM EDT Office Visit [facility] [address] [place] [address] Diaz Dalton MD [address] [place] [address] 05/26/2025 1:20 PM EDT Consult HCELSEY CARRERA [address] [facility] [place] [address] Feliz Benz, [address] [facility] [address] [place], [place] [address] 06/03/2025 1:30 PM EDT Office Visit [facility] [address] [place] [address] Cholo Strong, PA [address] [place] [address] 08/19/2025 2:00 PM EST Office Visit [facility] [address] [facility] [place] [address] Feliz Benz, [address] [facility] [address] [place], [place] [phone] documented as of this encounter Visit Diagnoses Not on filedocumented in this encounter Care Teams Funeral Arranger Relationship Specialty Start Date End Date Diaz Dalton MD [address] [place] [address] PCP - General Family Medicine 09/25/23 documented as of this encounter
--- OUTSIDE RECORDS SUMMARY | 2025-04-24 13:16 | XMS_ITS | Encounter Summary ---
Author Organization [facility] Address [address] [place] [address] Care Team Providers Care Segmental Wall Installer Name Role Phone Diaz Dalton MD Primary Care Provider Encounter Details Date Type Department Care Team ([facility] Contact Info) Description 10/24/2023 External Result Encounter [facility] [address] [place] [phone] Diaz Dalton MD [address] [place] [address] Social History Tobacco Use Types [...] Upcoming Encounters Date Type Department Care Team ([facility] Contact Info) Description 05/22/2025 1:30 PM EDT Office Visit [facility] [address] [place] [address] Diaz Dalton MD [address] [place] [address] 05/26/2025 1:20 PM EDT Consult CHELSEY CARRERA [address] [place] [address] Feliz Benz, DO [address] [facility] [address] [place] [address] 06/03/2025 1:30 PM EDT Office Visit [facility] [address] [place] [address] Cholo Strong, PA [address] [place] [address] 08/19/2025 2:00 PM EST Office Visit CHELSEY CARRERA [address] [place] [phone] Feliz Benz, DO [address] [facility] [place] [address] documented as of this encounter Procedures Procedure Name Priority Date/Time Associated Diagnosis Comments HEMOGLOBIN A1C Routine 05/28/2024 11:06 AM EDT RECURRENT VAGINITIS (HTRX) Routine 03/19/2024 12:00 AM EDT HEMOGLOBIN A1C Routine 02/13/2024 8:35 AM EDT US PELVIS TRANSVAGINAL 10/26/2023 4:19 PM EST ESTROGENS, FRACTIONATED Routine 10/26/2023 10:26 AM EST PROGESTERONE Routine 10/26/2023 10:26 AM EST LH Routine 10/26/2023 10:26 AM EST FSH Routine 10/26/2023 10:26 AM EST PET/CT SKULL BASE TO MID THIGH 10/24/2023 2:24 PM EST documented in this encounter Results * (ABNORMAL) Hemoglobin A1c (05/28/2024 11:06 AM EDT) HEMOGLOBIN A1C 12.9(H) 4.4 - 5.6 % [facility] Comment: NOTE ADA Guidelines Result HgbA1c Normal : less than 5.7 % Prediabetes : 5.7 % to 6.4 % Diabetes : > 6.4 % Use with caution in patients with abnormal hemoglobin variants as the half-life of red blood cells and in vivo glycation rates are affected. AVERAGE GLUCOSE 324 mg/dL [facility] Comment:PERFORMED AT [facility] [address],[place] [address] 05/28/2024 11:0 6 AM EDT 05/28/2024 11:07 AM EDT us Diaz Dalton MD LAB BLOOD ORDERABLES Final Resul t [facility] * (ABNORMAL) URETHRITIS/DISCHARGE PLUS VAGINITIS (HTRX) (03/19/2024 12:00 AM EDT) ATOPOBIUM VAGINAE 0.000 19.961 - 24.689 ppm 03/20/2024 7:03 AM EDT [facility] ATOPOBIUM VAGINAE Not Detected 19.961 - 24.689 ppm 03/20/2024 7:03 AM EDT [facility] BVAB 2,3 (BACTERIAL VAGINOSIS ASSOCIATED BACTERIA 2, 3); MOBILUNCUS SPP 0.000 19.961 - 24.689 ppm 03/20/2024 7:03 AM EDT [facility] BVAB 2,3 (BACTERIAL VAGINOSIS ASSOCIATED BACTERIA 2, 3); MOBILUNCUS SPP Not Detected 19.961 - 24.689 ppm 03/20/2024 7:03 AM EDT [facility] SHENG ALBICANS, PARAPSILOSIS, TROPICALIS 0.000 19.961 - 30.770 ppm 03/20/2024 7:03 AM EDT [facility] SHENG ALBICANS, PARAPSILOSIS, TROPICALIS Not Detected 19.961 - 30.770 ppm 03/20/2024 7:03 AM EDT [facility] SHENG GLABRATA 21.657(A) 23.000 - 32.138 ppm 03/20/2024 7:03 AM EDT [facility] SHENG GLABRATA Detected(A) 23.000 - 32.138 ppm 03/20/2024 7:03 AM EDT [facility] SHENG KRUSEI 0.000 23.000 - 32.271 ppm 03/20/2024 7:03 AM EDT [facility] SHENG KRUSEI Not Detected 23.000 - 32.271 ppm 03/20/2024 7:03 AM EDT [facility] CHLAMYDIA TRACHOMATIS 0.000 23.000 - 31.467 ppm 03/20/2024 7:03 AM EDT [facility] CHLAMYDIA TRACHOMATIS Not Detected 23.000 - 31.467 ppm 03/20/2024 7:03 AM EDT [facility] GARDNERELLA VAGINALIS 0.000 19.961 - 24.689 ppm 03/20/2024 7:03 AM EDT [facility] GARDNERELLA VAGINALIS Not Detected 19.961 - 24.689 ppm 03/20/2024 7:03 AM EDT [facility] MEGASPHAERA (TYPES 1, 2) 0.000 19.961 - 24.689 ppm 03/20/2024 7:03 AM EDT [facility] MEGASPHAERA (TYPES 1, 2) Not Detected 19.961 - 24.689 ppm 03/20/2024 7:03 AM EDT [facility] NEISSERIA GONORRHOEAE 0.000 23.000 - 32.117 ppm 03/20/2024 7:03 AM EDT [facility] NEISSERIA GONORRHOEAE Not Detected 23.000 - 32.117 ppm 03/20/2024 7:03 AM EDT [facility] TRICHOMONAS VAGINALIS 0.000 23.000 - 32.119 ppm 03/20/2024 7:03 AM EDT [facility] TRICHOMONAS VAGINALIS Not Detected 23.000 - 32.119 ppm 03/20/2024 7:03 AM EDT [facility] MYCOPLASMA GENITALIUM 0.000 19.961 - 24.689 ppm 03/20/2024 7:03 AM EDT [facility] MYCOPLASMA GENITALIUM Not Detected 19.961 - 24.689 ppm 03/20/2024 7:03 AM EDT [facility] Tissue 03/19/2024 03/20/2024 2:1 7 AM EDT Georgette KAPLAN LAB BLOOD ORDERABLES Final Resul t Performing Organization Address City/State/[facility] de Phone Number [facility] [address] [place] [address] * (ABNORMAL) Hemoglobin A1c (02/13/2024 8:35 AM EDT) [facility] HEMOGLOBIN A1C 9.6(H) 4.4 - 5.6 % [facility] Comment: NOTE ADA Guidelines Result HgbA1c Normal : less than 5.7 % Prediabetes : 5.7 % to 6.4 % Diabetes : > 6.4 % Use with caution in patients with abnormal hemoglobin variants as the half-life of red blood cells and in vivo glycation rates are affected. AVERAGE GLUCOSE 229 mg/dL [facility] Comment:PERFORMED AT [facility] [address],[place] [address] 02/13/2024 8:35 AM EDT 02/13/2024 8:36 AM EDT Diaz Dalton MD LAB BLOOD ORDERABLES Final Resul t [facility] * US pelvis transvaginal (10/26/2023 4:19 PM EST) Anatomical Region Laterality Modality Pelvis Ultrasound 10/26/2023 4:19 PM EST Narrative 10/26/2023 4:17 PM EST THIS EXAM WAS PERFORMED AT [facility] CLINICAL INFORMATION: Amenorrhea COMPARISON: 08/09/2021. FINDINGS: Limited [...] OTHER: Perhaps trace free fluid. IMPRESSION: No definitive/unequivocal sonographic abnormality of the pelvis. Consider follow-up and/or alternative means of evaluation depending on clinical concern/suspicion, given significant limitations of this study Finalized by Marques Gomez MD on 10/26/2023 4:17 PM Procedure Note Radiology, Radiologist, MD - 10/26/2023 THIS EXAM WAS PERFORMED AT [facility] CLINICAL INFORMATION: Amenorrhea COMPARISON: 08/09/2021. FINDINGS: Limited transabdominal and transvaginal ultrasound of the pelvis wasperformed. Profoundly limited due to body habitus. UTERUS: The uterus is estimated at 6.5 x 2.5 x 3.3 cm. No demonstrated discretemyometrial lesion, though study is significantly limited. The endometrialstripe is best approximated at 4-5 mm, however poorly visualized. OVARIES/ADNEXA: Ovaries are poorly visualized. The right ovary isestimated at approximately 1.9 x 0.9 x 0.7 cm, while the left ovary isapproximated at 1.3 x 0.9 x 0.8 cm. No demonstrated discrete adnexalmass. OTHER: Perhaps trace free fluid. IMPRESSION: No definitive/unequivocal sonographic abnormality of the pelvis. Considerfollow- up and/or alternative means of evaluation depending on clinicalconcern/suspicion, given significant limitations of this study Finalized by Marques Gomez MD on 10/26/2023 4:17 PM us Feliz Demar DO IM US PROCEDURES Final Result * Estrogens, fractionated (10/26/2023 10:26 AM EST) ESTRONE 35.4 pg/mL [facility] Comment: NOTE INTERPRETIVE INFORMATION: Estrone by Debrander For a complete set of all established reference intervals, refer to [facility]/Tests/Pub/[id number]. This test was developed and its performance characteristics determined by [facility]. It has not been cleared or approved by the US Food and Drug Administration. This test was performed in a CLIA certified laboratory and is intended for clinical purposes. ESTRADIOL 11.5 pg/mL [facility] Comment: NOTE REFERENCE INTERVAL: Estradiol by Debrander For a complete set of all established reference intervals, refer to [employer]/Tests/Pub/[id number]. This test was developed and its performance characteristics determined by [facility]. It has not been cleared or approved by the US Food and Drug Administration. This test was performed in a CLIA certified laboratory and is intended for clinical purposes. ESTROGENS TOTAL 46.9 pg/mL [facility] Comment: NOTE Reference interval of estrogens (pg/mL) Estrone Estradiol Total Estrogens Early follicular <150.0 30.0-100.0 30.0-250.0 Late follicular 100.0-250.0 100.0-400.0 200.0-650.0 Luteal <200.0 50.0-150.0 50.0-350.0 Post-menopausal 3.0-32.0 2.0-21.0 5.0-52.0 REFERENCE INTERVAL: Estrogens Total Calculation For a complete set of all established reference intervals, refer to [employer]/Tests/Pub/[id number]. Performed By: [facility] [address] [place] [address] Police Investigator: Alexys Gutierres MD, PhD CLIA Number: [id number] PERFORMED AT [address] [place] [address] 10/26/2023 10:2 6 AM EST 10/26/2023 10:27 AM EST Feliz Demar DO LAB BLOOD ORDERABLES Final Resul t Performing Organization Address [facility] Co de Phone Number [facility] * Luteinizing hormone (10/26/2023 10:26 AM EST) LUTEINIZING HORMONE 18.4 mIU/mL [facility] Comment: NORMAL FEMALE Follicular 2.1-10.9 mIU/mL Mid Cycle 19.2-103 mIU/mL Luteal 1.2-12.9 mIU/mL Post [place]raine 10.9-58.6 mIU/mL PERFORMED AT [address] [address] 10/26/2023 10:2 6 AM EST 10/26/2023 10:27 AM EST [facility]LOOD ORDERABLES Final Resul t Performing Organization Address [facility] de Phone Number [facility] * Follicle stimulating hormone (10/26/2023 10:26 AM EST) FOLLICLE STIM HORMONE 28.5 mIU/mL [facility] Comment: NORMAL FEMALE Luteal 1.8-5.1 mIU/mL Follicular 3.8-8.8 mIU/mL Mid Cycle 4.5-22.5 mIU/mL Post Katarzyna 16.7-113.6 mIU/mL PERFORMED AT [address],[place] [address] 10/26/2023 10:2 6 AM EST 10/26/2023 10:27 AM EST [facility] LAB BLOOD ORDERABLES Final Resul t Performing Organization Address [facility] de Phone Number [facility] * Progesterone (10/26/2023 10:26 AM EST) PROGESTERONE 0.5 ng/mL [facility] Comment: FEMALES: 1st Tri: 4.7-50.7 ng/ml 2nd Tri: 19.4-45.3 ng/ml MENSTRUATING FEMALES: Follicular: 0.3-1.5 ng/ml Mid Luteal: 5.2-18.6 ng/ml Post Lorraine: <0.1-0.8 ng/ml PERFORMED AT [facility] [address] [address] 10/26/2023 10:2 6 AM EST 10/26/2023 10:27 AM EST Result [facility] BLOOD ORDERABLES Final Resul t Performing Organization Address [facility] de Phone Number [facility] * PET/CT skull base to mid thigh (10/24/2023 2:24 PM EST) Anatomical Region Laterality Modality Body Computed Tomogra phy 10/24/2023 2:24 PM EST Narrative 10/24/2023 2:23 PM EST THIS EXAM WAS PERFORMED AT [facility] PET CT SKULL TO THIGH REASON FOR [...] NECK: Normal physiologic activity in the imaged EARTH OBSERVATIONS CHIEF SCIENTIST. Contrast evaluation of the face/brain due to [...] slightly enlarged pretracheal lymph node, indeterminate for infectious/inflammatory versus neoplastic etiology. Consider ongoing surveillance or potential FNA/endobronchial ultrasound. 3. Additional right axillary lymph node with more mild FDG uptake and equivocal cortical thickening, favored reactive though likely also warranting continued follow-up . 4. Presumed left trochanteric bursitis and/or tendinitis 5. Additional findings/limitations as above All CT scans at this facility use dose modulation, iterative reconstruction, and/or weight based dosing when appropriate to reduce radiation dose to as low as reasonably achievable Finalized by Marques Gomez MD on 10/24/2023 2:23 PM Procedure Note Radiology, Radiologist, MD - 10/24/2023 THIS EXAM WAS PERFORMED AT [facility] PET CT SKULL TO THIGH REASON FOR EXAM: Cavitary lesion of lung COMPARISON: None PROCEDURE: After a suitable fast, the patient was injected with 17.8 mCi of R-46-ypfvbzhsicpwkcqqgy (FDG) intravenously, followed by whole body images fromthe base of the skull to the mid-thigh on the dedicated PET/CT system at60 minutes post tracer injection. The data volume is reformatted into transverse, coronal and sagittalplanes, as well as 3-dimensional volume-rendered (MIP) display. Blood glucose: 163 mg/dl. Mediastinal blood pool activity (SUV): 1.4 Liver activity: 2.5 FINDINGS: NECK: Normal physiologic activity in the imaged EARTH OBSERVATIONS CHIEF SCIENTIST. Contrast evaluation of the face/brain due to differences in positioningbetween the PET and CT acquisitions with misregistration artifact. Nodefinitive suspicious hypermetabolic cervical lymph nodes areidentified. Low Dose CT Images: No other acute or significant finding. CHEST: A 1.2 cm noncalcified right upper lobe nodule is redemonstrated. Nosignificant residual tracer activity (max SUV 0.8). Mildly hypermetabolicright paratracheal lymph node (max SUV 2.8). A borderline 0.9 cm rightaxillary lymph node with corresponding FDG uptake (max SUV 1.9). Low Dose CT Images: No other acute or significant finding. ABDOMEN/PELVIS: Normal physiologic activity in the liver, spleen, and genitourinarytract. No suspicious hypermetabolic lymph nodes or other soft tissue deposit. Low Dose CT Images: Cholecystectomy. Multiple caliber aorta.Fat-containing. Focal hernia. OSSEOUS STRUCTURES: No worrisome osseous hypermetabolism. Robust activity at the lefttrochanteric bursa, presumably inflammatory. Clinical muscular activity,right more so than left. Presumed physiologic activity within theshoulder and posterior paraspinal muscles Low Dose CT Images: No other acute or significant finding. IMPRESSION: 1. Index 1.2 cm right upper lobe nodule persists however withoutsuspicious FDG uptake, suggesting benign/indolent etiology. Nevertheless,recommend ongoing surveillance to ensure stability. 2. Moderate activity corresponding to a slightly enlarged pretracheallymph node, indeterminate for infectious/inflammatory versus neoplasticetiology. Consider ongoing surveillance or potential FNA/endobronchialultrasound. 3. Additional right axillary lymph node with more mild FDG uptake andequivocal cortical thickening, favored reactive though likely alsowarranting continued follow-up . 4. Presumed left trochanteric bursitis and/or tendinitis 5. Additional findings/limitations as above All CT scans at this facility use dose modulation, iterativereconstruction, and/or weight based dosing when appropriate to reduceradiation dose to as low as reasonably achievable Finalized by Marques Gomez MD on 10/24/2023 2:23 PM Diaz Dalton MD IMG CT PROCEDURES Final Result documented in this encounter Visit Diagnoses Not on filedocumented in this encounter Care Teams Segmental Wall Installer Relationship Specialty Start Date End Date Diaz Dalton MD [address] [place] [address] PCP - General Family Medicine 09/25/23 documented as of this encounter
--- OUTSIDE RECORDS SUMMARY | 2025-04-24 13:16 | XMS_ITS | Encounter Summary ---
Author Organization [facility] Address [address] [place] [address] Care Team Providers Care Branch Retail Executive Name Role Phone Diaz Dalton MD Primary Care Provider [phone] Encounter Details Date Type Department Care Team ([facility] Contact Info) Description 04/03/2024 Clinisync Result Encounter [facility] External Department Unsolicited Provider, Generic External Data Social History Tobacco Use Types Packs/Day Years [...] Office Visit [facility] [address] [place] [address] Diaz Dalton MD [address] [place] [address] 05/26/2025 1:20 PM EDT Consult NOMGer CARRERA [address] [place] [address] Feliz Benz DO [address] [place] [address] 06/03/2025 1:30 PM EDT Office Visit [facility] [address] [place] [address] Cholo Strong, PA [address] [place] [address] 08/19/2025 2:00 PM EST Office Visit [facility] [place] [facility] [address] [place] [address] Feliz Benz, DO [address] [facility] [address] [place], [place] [id number] documented as of this encounter Procedures Procedure Name Priority Date/Time Associated Diagnosis Comments US PELVIS W/ TRANSVAGINAL 04/03/2024 8:29 AM EDT documented in this encounter Results * US PELVIS W/ TRANSVAGINAL (04/03/2024 8:29 AM EDT) Anatomical Region Laterality Modality Other 04/03/2024 8:29 AM EDT Narrative 04/03/2024 8:31 AM EDT The [address] [address] Ultrasound Report Signed Patient: CARISSA LOZADA MR#: [id number] : 1980 Acct:[id number] Age/Sex: 43 / F ADM Date: 04/02/24 Loc: [facility] Attending Dr: Georgette Guerra Ordering Physician: Georgette Guerra Date of Service: 04/02/24 Procedure(s): US pelvis w/ transvaginal Accession Number(s): [id number] cc: Georgette Guerra; Diaz Dalton M.D. The [address] [address] Patient Name: CARISSA LOZADA MRN: [facility]:[id number] date: 1980 Sex: F Assigned Patient Location: [facility] Current Patient Location: Accession/Order Number: [id number] Exam Date: 04/02/2024 11:53 Report Date: 04/03/2024 08:29 At the request of: GEORGETTE GUERRA Procedure: US pelvis w/ transvaginal EXAMINATION: US pelvis w/ transvaginal HISTORY: PELVIC PAIN COMPARISON: No relevant comparison available. FINDINGS: Limited exam due to patient body habitus. Transabdominal and transvaginal images The uterus is normal in size, contour and echotexture measuring 6.1 x 2.9 x 3.1 cm. The endometrium measures 5.4 mm thick. The ovaries are not visualized. No ascites US/US pelvis w/ transvaginal IMPRESSION: Normal uterus Nonvisualization of the ovaries Electronically authenticated by: KRYSTYNA SORIANO Date: 04/03/2024 08:29 Dictated By: Krystyna Soriano M.D. Signed By: 04/03/24830 DD/ 8 TD/TT: Hay Stacker: Procedure Note Radiology, Radiologist, MD - 04/03/2024 [place] [address] Ultrasound Report Signed Patient: CARISSA LOZADA RMR#: [id number] : 1980Acct:[id number] Age/Sex: 43 / FADM Date: 04/02/24 Loc: [facility] Attending Dr: Georgette Guerra Ordering Physician: Georgette Guerra Date of Service: 04/02/24 Procedure(s): US pelvis w/ transvaginal Accession Number(s): [id number] cc: Georgette Guerra; Diaz Dalton M.D. The [address] [address] Patient Name: CARISSA LOZADA MRN: [id number] date: 1980 Sex: F Assigned Patient Location: [facility] Current Patient Location: Accession/Order Number: [id number] Exam Date: 04/02/2024 11:53 Report Date: 04/03/2024 08:29 At the request of: GEORGETTE GUERRA Procedure: US pelvis w/ transvaginal EXAMINATION: US pelvis w/ transvaginal HISTORY: PELVIC PAIN COMPARISON: No relevant comparison available. FINDINGS: Limited exam due to patient body habitus. Transabdominal and transvaginal images The uterus is normal in size, contour and echotexture measuring 6.1 x 2.9x 3.1 cm. The endometrium measures 5.4 mm thick. The ovaries are not visualized. No ascites US/US pelvis w/ transvaginal IMPRESSION: Normal uterus Nonvisualization of the ovaries Electronically authenticated by: KRYSTYNA SORIANO Date: 04/03/2024 08:29 Dictated By: Krystyna Soriano M.D. Signed By:04/03/24830 DD/ 8 TD/TT: Hay Stacker: us Generic External Data Provider [facility] Final Result documented in this encounter Visit Diagnoses Not on filedocumented in this encounter Care Teams Branch Retail Executive Relationship Specialty Start Date End Date Diaz Dalton MD [address] [place] [address] PCP - General Family Medicine 09/25/23 documented as of this encounter
--- OUTSIDE RECORDS SUMMARY | 2025-04-24 13:16 | XMS_ITS | Encounter Summary ---
Author Organization [facility] Address [id number] [place] [address] Care Team Providers Care Welder Operator Name Role Phone Diaz Dalton MD Primary Care Provider [phone] Reason for Visit * Reason Onset Date Comments s/p C 06/26/2024 Encounter Details Date Type Department Care Team ([facility] Contact Info) Description 06/26/2024 Telephone [facility] Farmworker Sign In [address] [place] [phone] Christine oRbins, SUPERVISOR SHUTTLE FITTING-HOME CARE NURSE [address] [place] [address] s/p [facility] Social History Tobacco Use Types Packs/Day Years Used Date Smoking Tobacco: Never Smokeless Tobacco: Never Alcohol Use Standard Drinks/Week Comments Yes 0 (1 standard drink = 0.6 oz pur e alcohol) occasionally-once a month [facility] Utilities Answer Date Recorded In the past 12 months has [employer], gas, oil, or water [employer] threatened to shut off services in your [...] week 12/20/2023 How often do you attend [facility] or zoroastrianism services? Never 12/20/2023 Do you belong to any clubs o r organizations such as restorationist groups, unions, fraternal or athletic groups, or [...] Answer Date Recorded Total Score 4 06/05/2023 [facility] - Occupational [...] Recorded Do you need help finding a [facility] and/or a training program? No 12/20/2023 Hunger Screening Answer Date Recorded Within the past 12 months we worried whether our food would run out before we got money to buy more. Never True 06/28/2024 Within the past 12 months th e food we bought just didn't last and we didn't have money to get more. Never True 06/28/2024 Purpose - Life Answer Date Recorded I have a purpose and direction in my life. Stron gly Agree 12/20/2023 Comments No Sex and Gender Information Value Date Recorded Sex Assigned at Not on file Legal Sex Female 11:24 AM EDT Gender Identity Not on file Sexual Orientation Not on file documented as of this encounter Miscellaneous Notes * Telephone Encounter - DUSTIN Spangler - 06/26/2024 10:38 AM EDT Right heart catheterization only. No need to follow-up with me. Follow-up in the [place] office. * Telephone Encounter - Michaela Hernández - 06/26/2024 10:38 AM EDT 06/27 Competed - scheduled in [facility] documented in this encounter Plan of Treatment Upcoming Encounters Date Type Department Care Team (Late st Contact Info) Description 07/07/2025 9:30 AM EST Office Visit [facility] [address] [place] [address] Adriane Woods APRN-CNP [address] [place] [address] documented as of this encounter Visit Diagnoses Not on filedocumented in this encounter Additional Health Concerns Infection Onset Date Last Indicated Resolved Time COVID-19 Rule-Out 07/21/2024 07/21/2024 07/21/2024 6:08 PM EST Assessment Noted Time PHQ-9 Depression Total Score: 4 06/05/20 23 1:13 AM EDT documented as of this encounter Care Teams Welder Operator Relationship Specialty Start Date End Date Diaz Dalton MD PCP - General Family Medicine 10/27/24 documented as of this encounter
--- OUTSIDE RECORDS SUMMARY | 2025-04-24 13:16 | XMS_ITS | Encounter Summary ---
Author Organization [facility] Address [address] [place] [address] Care Team Providers Care Copy Cutter Name Role Phone Diaz Dalton MD Primary Care Provider Encounter Details Date Type Department Care Team ([facility] Contact Info) Description 01/23/2025 Abstract [facility] [address] [place] [address] Diaz Dalton MD [address] [place] [place] [address] Social History Tobacco Use Types Packs/Day Years [...] Upcoming Encounters Date Type Department Care Team ([facility] Contact Info) Description 05/22/2025 1:30 PM EDT Office Visit [facility] [address] [place] [address] Diaz Dalton MD [address] [place] [address] 05/26/2025 1:20 PM EDT Consult CHELSEY CARRERA [address] [facility] [place] [address] Feliz Benz, DO [address] [facility] [place] [address] 06/03/2025 1:30 PM EDT Office Visit [facility] [address] [place] [address] Cholo Strong PA [address] [place] [address] 08/19/2025 2:00 PM EST Office Visit CHELSEY CARRERA [address] [place] [address] Feliz Benz, DO [address] [facility] [address] [place], [place] [address] documented as of this encounter Visit Diagnoses Not on filedocumented in this encounter Care Teams Copy Cutter Relationship Specialty Start Date End Date Diaz Dalton MD [address] [place] [address] PCP - General Family Medicine 09/25/23 documented as of this encounter
--- OUTSIDE RECORDS SUMMARY | 2025-04-24 13:16 | XMS_ITS | Encounter Summary ---
Author Organization [facility] Address [address] [place] [address] Care Team Providers Care Franchise Specialist Name Role Phone Diaz Dalton MD Primary Care Provider Encounter Details Date Type Department Care Team ([facility] Contact Info) Description 10/16/2024 Orders Only [facility] [address] [place] [address] Diaz Dalton MD [address] [place] [address] Social History Tobacco Use Types [...] Encounters Date Type Department Care Team ([facility] Contact Info) Description 05/22/2025 1:30 PM EDT Office Visit [facility] [address] [place] [address] Diaz Dalton MD [address] [place] [address] 05/26/2025 1:20 PM EDT Consult CHELSEY CARRERA [address] [facility] [place] [address] Feliz Benz, DO [address] [facility] [place] [address] 06/03/2025 1:30 PM EDT Office Visit [facility] [address] [place] [address] Cholo Strong PA [address] [place] [address] 08/19/2025 2:00 PM EST Office Visit CHELSEY CARRERA [address] [facility] [place] [address] Feliz Benz, [address] [facility] [address] [place], [place] [address] documented as of this encounter Visit Diagnoses Not on filedocumented in this encounter Care Teams Franchise Specialist Relationship Specialty Start Date End Date Diaz Dalton MD [address] [place] [address] PCP - General Family Medicine 09/25/23 documented as of this encounter
--- OUTSIDE RECORDS SUMMARY | 2025-04-24 13:16 | XMS_ITS | Encounter Summary ---
Author Organization [facility] Address [address] [place] [address] Care Team Providers Care Shotblaster Name Role Phone Diaz Dalton MD Primary Care Provider Encounter Details Date Type Department [facility] ([facility] Info[facility] Description 02/13/2025 Abstract [facility] [address] [place] [address] Diaz Dalton MD [address] [place] [address] Social History Tobacco Use Types Packs/Day Years [...] Upcoming Encounters Date Type Department Care Team ([facility] Contact Info) Description 05/22/2025 1:30 PM EDT Office Visit [facility] [address] [place] [address] Diaz Dalton MD [address] [place] [address] 05/26/2025 1:20 PM EDT Consult CHELSEY CARRERA [address] [facility] [place] [address] Feliz Benz, DO [address] [facility] [place] [address] 06/03/2025 1:30 PM EDT Office Visit [facility] [address] [place] [address] Cholo Strong PA [address] [place] [address] 08/19/2025 2:00 PM EST Office Visit CHELSEY CARRERA [address] [facility] [place] [address] Feliz Benz, DO [address] [facility] [address] [place], [place] [address] documented as of this encounter Visit Diagnoses Not on filedocumented in this encounter Care Teams Shotblaster Relationship Specialty Start Date End Date Diaz Dalton MD [address] [place] [address] PCP - General Family Medicine 09/25/23 documented as of this encounter
--- OUTSIDE RECORDS SUMMARY | 2025-04-24 13:16 | XMS_ITS | Encounter Summary ---
Author Organization [facility] Address [address] [place] [address] Care Team Providers Care Top Frame Fitter Name Role Phone Diaz Dalton MD Primary Care Provider [phone] Encounter Details Date Type Department Care Team ([facility] Contact Info) Description 12/05/2024 Orders Only [facility] [address] [place] [address] Lotus Diego MD [address] [facility] [place], [place] [phone] Social History Tobacco Use Types Packs/Day Years [...] Upcoming Encounters Date Type Department Care Team ([facility] Contact Info) Description 05/22/2025 1:30 PM EDT Office Visit [facility] [address] [place] [phone] Diaz Dalton MD [address] [place] [address] 05/26/2025 1:20 PM EDT Consult CHELSEY CARRERA [address] [facility] [address] Feliz Benz, DO [address] [facility] [place] [address] 06/03/2025 1:30 PM EDT Office Visit [facility] [address] [place] [address] Cholo Strong PA [address] [place] [address] 08/19/2025 2:00 PM EST Office Visit CHELSEY CARRERA [address] [place] [address] [place] [address] Feliz Benz, DO [address] [facility] [address] [place], [place] [address] documented as of this encounter Procedures Procedure Name Priority Date/Time Associated Diagnosis Comments DIABETIC RETINOPATHY SCREENING - OU - BOTH EYES Routine 12/05/2024 2:40 PM EDT documented in this encounter Results * Diabetic Retinopathy Screening - OU - Both Eyes (12/05/2024 2:40 PM EDT) Anatomical Region Laterality Modality Head Other Lotus Diego MD OPHTH PHOTOGRAPHY Final Result documented in this encounter Visit Diagnoses Not on filedocumented in this encounter Care Teams Top Frame Fitter Relationship Specialty Start Date End Date Diaz Dalton MD [address] [place] [address] PCP - General Family Medicine 09/25/23 documented as of this encounter
--- OUTSIDE RECORDS SUMMARY | 2025-04-24 13:16 | XMS_ITS | Encounter Summary ---
Author Organization [facility] Address [address] [place] [address] Care Team Providers Care Face Hardener Name Role Phone iDaz Dalton MD Primary Care Provider [phone] Encounter Details Date Type Department Care Team ([facility] Contact Info) Description 04/18/2024 Orders Only [facility] [address] [place] [address] Gary Miller, DO [address] [place] [address] Social History Tobacco Use Types Packs/Day Years [...] Upcoming Encounters Date Type Department Care Team ([facility] Contact Info) Description 05/22/2025 1:30 PM EDT Office Visit [facility] [address] [place] [address] Diaz Dalton MD [address] [place] [address] 05/26/2025 1:20 PM EDT Consult CHELSEY CARRERA [address] [facility] [place] [address] Feliz Benz, DO [address] [facility] [place] [address] 06/03/2025 1:30 PM EDT Office Visit [facility] [address] [place] [address] Cholo Strong PA [address] [place] [address] 08/19/2025 2:00 PM EST Office Visit CHELSEY CARRERA [address] [facility] [place] [address] Feliz Benz, DO [address] [facility] [place] [address] documented as of this encounter Procedures Procedure Name Priority Date/Time Associated Diagnosis Comments ELECTROCARDIOGRAM REPORT Routine 024 8:26 AM EDT documented in this encounter Results * Electrocardiogram Report (04/16/2024 8:26 AM EDT) us Gary Miller DO IN CLINIC/BEDSIDE ORDERABL ES Final Result documented in this encounter Visit Diagnoses Not on filedocumented in this encounter Care Teams Face Hardener Relationship Specialty Start Date End Date Diaz Dalton MD [address] [place] [address] PCP - General Family Medicine 09/25/23 documented as of this encounter
--- OUTSIDE RECORDS SUMMARY | 2025-04-24 13:16 | XMS_ITS | Encounter Summary ---
Author Organization [facility] Address [id number] [address] [place] [address] Care Team Providers Care Program Scheduler Name Role Phone Diaz Dalton MD Primary Care Provider [phone] Encounter Details Date Type Department Care Team (Late st Contact Info) Description 05/07/2024 Telephone [facility] Pulmonary/Sleep Medicine [address] [facility] [address] [place] [address] Stella Reyes RN Social History Tobacco Use Types Packs/Day Years Used Date Smoking Tobacco: Never Smokeless Tobacco: Never Alcohol Use Standard Drinks/Week Comments Yes 0 (1 standard drink = 0.6 oz pur e alcohol) occasionally-once a month [facility] Utilities Answer Date Recorded In [...] any clubs o r organizations such as presybeterian groups, unions, fraternal or athletic groups, or [...] Answer Date Recorded Total Score 4 06/05/2023 [facility] - [...] Recorded Do you need help finding a [facility] and/or a training [...] Telephone Encounter - Stella Reyes RN - 05/07/2024 8:59 AM EDT Images from the original note were not included. documented in this encounter Plan of Treatment Upcoming Encounters Date Type Department Care Team (Late st Contact Info) Description 07/07/2025 9:30 AM EST Office Visit [facility] Cardiology [address] [place] [address] Adriane [place], RADIO COMMUNICATIONS MECHANICIAN-PHYSICAL EDUCATION SPECIALIST [address] [place] [address] documented as of this encounter Visit Diagnoses Not on filedocumented in this encounter Additional Health Concerns Infection Onset Date Last Indicated Resolved Time COVID-19 Rule-Out 07/21/2024 07/21/2024 07/21/2024 6:08 PM EST Assessment Noted Time PHQ-9 Depression Total Score: 4 06/05/20 23 1:13 AM EDT documented as of this encounter Care Teams Program Scheduler Relationship Specialty Start Date End Date Diaz Dalton MD PCP - General Family Medicine 10/27/24 documented as of this encounter
--- OUTSIDE RECORDS SUMMARY | 2025-04-24 13:16 | XMS_ITS | Encounter Summary ---
Author Organization [facility] Address [address] [place] [address] Care Team Providers Care Motorboat Mechanic Helper Name Role Phone Diaz Dalton MD Primary Care Provider [phone] Encounter Details Date Type Department Care Team ([facility] Contact Info) Description 12/09/2024 Orders Only [facility] [address] [place] [address] Lotus Diego MD [address] [facility] [place], [place] [phone] Social History Tobacco Use Types Packs/Day Years [...] Upcoming Encounters Date Type Department Care Team ([facility] Contact Info) Description 05/22/2025 1:30 PM EDT Office Visit [facility] [address] [place] [address] Diaz Dalton MD [address] [place] [address] 05/26/2025 1:20 PM EDT Consult CHELSEY CARRERA [address] [facility] [place] [address] Feliz Benz, DO [address] [facility] [place] [address] 06/03/2025 1:30 PM EDT Office Visit [facility] [address] [place] [address] Cholo Strong PA [address] [place] [address] 08/19/2025 2:00 PM EST Office Visit CHELSEY CARRERA [address] [place] [address] [place] [address] Feliz Benz, DO [address] [facility] [address] [place], [place] [address] documented as of this encounter Procedures Procedure Name Priority Date/Time Associated Diagnosis Comments DIABETIC RETINOPATHY SCREENING - OU - BOTH EYES Routine 12/09/2024 2:23 PM EDT documented in this encounter Results * Diabetic Retinopathy Screening - OU - Both Eyes (12/09/2024 2:23 PM EDT) Anatomical Region Laterality Modality Head Other Lotus Diego MD OPHTH PHOTOGRAPHY Final Result documented in this encounter Visit Diagnoses Not on filedocumented in this encounter Care Teams Motorboat Mechanic Helper Relationship Specialty Start Date End Date Diaz Dalton MD [address] [place] [address] PCP - General Family Medicine 09/25/23 documented as of this encounter
--- OUTSIDE RECORDS SUMMARY | 2025-04-24 13:16 | XMS_ITS | Encounter Summary ---
Author Organization [facility] Address [address] [place] [address] Care Team Providers Care Swiss Machinist Name Role Phone Diaz Dalton MD Primary Care Provider Encounter Details Date Type Department Care Team ([facility] Contact Info) Description 01/11/2024 Abstract [facility] [address] [place] [address] Diaz Dalton MD [address] [place] [address] Social History Tobacco Use Types Packs/Day Years [...] Upcoming Encounters Date Type Department Care Team ([facility] Contact Info) Description 05/22/2025 1:30 PM EDT Office Visit [facility] [address] [place] [address] Diaz Dalton MD [address] [place] [address] 05/26/2025 1:20 PM EDT Consult CHELSEY CARRERA [address] [facility] [place] [address] Feliz Benz, DO [address] [facility] [place] [address] 06/03/2025 1:30 PM EDT Office Visit [facility] [address] [place] [address] Cholo Strong PA [address] [place] [address] 08/19/2025 2:00 PM EST Office Visit CHELSEY CARRERA [address] [facility] [place] [address] Feliz Benz, DO [address] [facility] [address] [place], [place] [address] documented as of this encounter Visit Diagnoses Not on filedocumented in this encounter Care Teams Swiss Machinist Relationship Specialty Start Date End Date Diaz Dalton MD [address] [place] [address] PCP - General Family Medicine 09/25/23 documented as of this encounter
--- OUTSIDE RECORDS SUMMARY | 2025-04-24 13:16 | XMS_ITS | Encounter Summary ---
Author Organization [facility] Address [address] [place] [address] Care Team Providers Care Inside Barrel Polisher Name Role Phone Diaz Dalton MD Primary Care Provider [phone] Encounter Details Date Type Department Care Team ([facility] Contact Info) Description 04/02/2024 Clinisync Result Encounter [facility] External Department Unsolicited Georgette Guerra PA [address] [place], [place] [address] Social History Tobacco Use Types Packs/Day Years [...] Visit [facility] [address] [place] [address] Diaz Dalton MD [address] [place] [address] 05/26/2025 1:20 PM EDT Consult [facility] [address] [place] [address] Feliz Benz, DO [address] [facility] [place] [address] 06/03/2025 1:30 PM EDT [facility] [address] [place] [address] Cholo Strong PA [address] [place] [address] 08/19/2025 2:00 PM EST Office Visit CHELSEY CARRERA [address] [place] [address] [place] [address] Feliz Benz, DO [address] [facility] [place] [address] documented as of this encounter Procedures Procedure Name Priority Date/Time Associated Diagnosis Comments CT ABDOMEN/PELVIS WO CONT 04/02/2024 6:38 AM EDT documented in this encounter Results * CT ABDOMEN/PELVIS WO CONT (04/02/2024 6:38 AM EDT) Anatomical Region Laterality Modality Radiographic Bisi ging 04/02/2024 6:38 AM EDT Narrative 04/02/2024 6:40 [place] [address] CT Scan Report Signed Patient: CARISSA LOZADA MR#: [id number] : 1980 Acct:[id number] Age/Sex: 43 / F ADM Date: 04/01/24 Loc: CT Attending Dr: Georgette Guerra Ordering Physician: Georgette Guerra Date of Service: 04/01/24 Procedure(s): CT abdomen pelvis wo con Accession Number(s): [id number] cc: Diaz Dalton M.D. The [address] [address] Patient Name: CARISSA LOZADA MRN: [id number] date: 1980 Sex: F Assigned Patient Location: CT Current Patient Location: Accession/Order Number: [id number] Exam Date: 04/01/2024 12:24 Report Date: 04/02/2024 06:38 At the request of: GEORGETTE GUERRA Procedure: CT abdomen pelvis wo con EXAMINATION: CT abdomen pelvis wo con HISTORY: Pain Of Ovary N94.89, Female Pelvic Pain R10.2 ; right side pelvic pain radiating into the vaginal region for 3 months COMPARISON: No relevant comparison available. TECHNIQUE: Axial, Coronal, and Sagittal images were obtained without and/or with IV contrast as indicated by examination type. Dose reduction techniques were achieved by using automated exposure control and/or adjustment of mA and/or kV according to patient size and/or use of iterative reconstruction technique. FINDINGS: LUNG BASES: No visible pulmonary or pleural disease. LIVER: No enlargement, atrophy, suspicious density, or significant focal lesion. BILIARY: Cholecystectomy. PANCREAS: No lesion, fluid collection, or abnormal duct dilatation. SPLEEN: No enlargement or focal lesion. ADRENALS: No mass or enlargement. KIDNEYS: No mass, obstruction, or calcification. BOWEL/MESENTERY: No visible mass, obstruction, or bowel wall thickening. AORTA/VASCULAR: No aneurysm or dissection. RETROPERITONEUM: No mass or adenopathy. LYMPH NODES: No adenopathy. URINARY BLADDER: No visible focal wall thickening, lesion, or calculus. PELVIC ORGANS: No visible mass. Pelvic organs appropriate for patient age. ABDOMINAL WALL: Small fat filled umbilical hernia without strangulation. BONES: No bony lesion or fracture. OTHER: Negative. CT/CT abdomen pelvis wo con IMPRESSION: 1. No abnormal or suspicious findings to account for patient's symptoms. 2. Small fat filled umbilical hernia without strangulation. Electronically authenticated by: KAMRON GUNN Date: 04/02/2024 06:38 Dictated By: Kamron Gunn M.D. Signed By: 04/02/2440 DD/ 7 TD/TT: Machine Tracer: Procedure Note Radiology, Radiologist, - 04/02/[address] [address] [address] Scan Report Signed Patient: CARISSA LOZADA RMR#: [id number] : 1980Acct:[id number] Age/Sex: 43 / FADM Date: 04/01/24 Loc: CT Attending Dr: Georgette Guerra Ordering Physician: Georgette Guerra Date of Service: 04/01/24 Procedure(s): CT abdomen pelvis wo con Accession Number(s): [id number] cc: Diaz Dalton M.D. The [address] [address] Patient Name: CARISSA LOZADA MRN: [id number] date: 1980 Sex: F Assigned Patient Location: CT Current Patient Location: Accession/Order Number: [id number] Exam Date: 04/01/2024 12:24 Report Date: 04/02/2024 06:38 At the request of: GEORGETTE GUERRA Procedure: CT abdomen pelvis wo con EXAMINATION: CT abdomen pelvis wo con HISTORY: Pain Of Ovary N94.89, Female Pelvic Pain R10.2 ; right sidepelvic pain radiating into the vaginal region for 3 months COMPARISON: No relevant comparison available. TECHNIQUE: Axial, Coronal, and Sagittal images were obtained withoutand/or with IV contrast as indicated by examination type. Dose reductiontechniques were achieved by using automated exposure control and/or adjustment of mA and/or kV according to patient size and/or use of iterative reconstruction technique. FINDINGS: LUNG BASES: No visible pulmonary or pleural disease. LIVER: No enlargement, atrophy, suspicious density, or significant focal lesion. BILIARY: Cholecystectomy. PANCREAS: No lesion, fluid collection, or abnormal duct dilatation. SPLEEN: No enlargement or focal lesion. ADRENALS: No mass or enlargement. KIDNEYS: No mass, obstruction, or calcification. BOWEL/MESENTERY: No visible mass, obstruction, or bowel wall thickening. AORTA/VASCULAR: No aneurysm or dissection. RETROPERITONEUM: No mass or adenopathy. LYMPH NODES: No adenopathy. URINARY BLADDER: No visible focal wall thickening, lesion, or calculus. PELVIC ORGANS: No visible mass. Pelvic organs appropriate for patient age. ABDOMINAL WALL: Small fat filled umbilical hernia without strangulation. BONES: No bony lesion or fracture. OTHER: Negative. CT/CT abdomen pelvis wo con IMPRESSION: 1. No abnormal or suspicious findings to account for patient's symptoms. 2. Small fat filled umbilical hernia without strangulation. Electronically authenticated by: KAMRON GUNN Date: 04/02/2024 06:38 Dictated By: Kamron Gunn M.D. Signed By:04/02/2440 DD/ 7 TD/TT: Machine Tracer: Georgette KAPLAN IMG XR PROCEDURES Final Result documented in this encounter Visit Diagnoses Not on filedocumented in this encounter Care Teams Inside Barrel Polisher Relationship Specialty Start Date End Date Diaz Dalton MD [address] [place] [address] PCP - General Family Medicine 09/25/23 documented as of this encounter
--- OUTSIDE RECORDS SUMMARY | 2025-04-24 13:16 | XMS_ITS | Encounter Summary ---
Author Organization [facility] Sys tem Address [id number] [address] [place] [address] Care Team Providers Care Mandrel Puller Name Role Phone Diaz Dalton MD Primary Care Provider [phone] Reason for Visit * Reason Comments Med Refill Encounter Details Date Type Department Care Team (Late st Contact Info) Description 07/12/2024 Refill [facility] [address] [place] [address] Hafsa Whitman, BEAUTY SPECIALIST-CONTACT WORKER LITHOGRAPHY [address] [place] [address] Med Refill Social History Tobacco Use Types Packs/Day Years Used Date Smoking Tobacco: Never Smokeless Tobacco: Never Alcohol Use Standard Drinks/Week Comments Yes 0 (1 standard drink = 0.6 oz pur e alcohol) occasionally-once a month [facility] Utilities Answer Date Recorded In the past 12 months has [employer], gas, oil, or water [employer] threatened to shut off services in your [...] often do you attend chur ch or roman catholic services? Never 12/20/2023 Do you belong [...] Answer Date Recorded Total Score 4 06/05/2023 [facility] - Occupational [...] Recorded Do you need help finding a [facility] career center and/or a training [...] encounter Miscellaneous Notes * Telephone Encounter - Dayanara Kelly RN - 07/12/2024 6:04 PM EST DUPLICATE Will fill at 07/19/24 appt if appropriate. documented in this encounter Plan of Treatment Upcoming Encounters Date Type Department Care Team (Late st Contact Info) Description 07/07/2025 9:30 AM EST Office Visit [facility] [address] [place] [address] Adriane Woods, BEAUTY SPECIALIST-CONTACT WORKER LITHOGRAPHY [address] [place] [phone] documented as of this encounter Visit Diagnoses Not on filedocumented in this encounter Additional Health Concerns Infection Onset Date Last Indicated Resolved Time COVID-19 Rule-Out 07/21/2024 07/21/2024 07/21/2024 6:08 PM EST Assessment Noted Time PHQ-9 Depression Total Score: 4 06/05/20 23 1:13 AM EDT documented as of this encounter Care Teams Mandrel Puller Relationship Specialty Start Date End Date Diaz Dalton MD PCP - General Family Medicine 10/27/24 documented as of this encounter
--- OUTSIDE RECORDS SUMMARY | 2025-04-24 13:16 | XMS_ITS | Encounter Summary ---
Author Organization [facility] Address [address] [place] [address] Care Team Providers Care Brick Kiln Worker Name Role Phone Diaz Dalton MD Primary Care Provider [phone] Encounter Details Date Type Department Care Team ([facility] Contact Info) Description 03/05/2025 Results Follow-Up [facility] [address] [place] [address] Cholo Strong PA [address] [place] [address] MR KNEE LT WO CON Social History Tobacco Use Types Packs/Day Years [...] Upcoming Encounters Date Type Department Care Team ([facility] Contact Info) Description 05/22/2025 1:30 PM EDT Office Visit [facility] [address] [place] [phone] Diaz Dalton MD [address] [place] [address] 05/26/2025 1:20 PM EDT Consult [facility] [address] [place] [address] Feliz Benz, DO [address] [place] [address] 06/03/2025 1:30 PM EDT Office Visit [facility] [address] [place] [address] Cholo Strong, PA [address] [place] [address] 08/19/2025 2:00 PM EST Office Visit [facility] [address] [place] [address] Feliz Benz, DO [address] [place], [place] [id number] documented as of this encounter Visit Diagnoses Not on filedocumented in this encounter Care Teams Brick Kiln Worker Relationship Specialty Start Date End Date Diaz Dalton MD [address] [place] [address] PCP - General Family Medicine 09/25/23 documented as of this encounter
--- OUTSIDE RECORDS SUMMARY | 2025-04-24 13:16 | XMS_ITS | Encounter Summary ---
Author Organization [facility] Sys [facility] Address [id number] [address] [place] [address] Care Team Providers Care Pre Planning Advisor Name Role Phone Diaz Dalton MD Primary Care Provider [phone] Encounter Details Date Type Department Care Team (Late st Contact Info) Description 04/25/2024 Telephone [facility] [address] [facility] [address] [place] [address] Stella Reyes RN Social History Tobacco Use Types Packs/Day Years Used Date Smoking Tobacco: Never Smokeless Tobacco: Never Alcohol Use Standard Drinks/Week Comments Yes 0 (1 standard drink = 0.6 oz pur e alcohol) occasionally-once a month [facility] Utilities Answer Date Recorded In [...] often do you attend chur ch or sikhism services? Never 12/20/2023 Do you belong to [...] Answer Date Recorded Total Score 4 06/05/2023 [facility] - [...] Do you need help finding a [facility] and/or a training program? [...] purpose and direction in my life. Arianna gly Agree 12/20/2023 Comments No Sex and Gender Information Value Date Recorded Sex Assigned at Not on file Legal Sex Female 11:24 AM EDT Gender Identity Not on file Sexual Orientation Not on file documented as of this encounter Miscellaneous Notes * Telephone Encounter - Stella Reyes RN - 04/25/2024 11:43 AM EDT Appt 05-16-24 at [place] office Salon Coordinator spoke to patient and informed per Dr Arrieta, CT chest showed stable lung nodules for > 2 years. Will discuss with patient at upcoming office appt. Patient agreeable ----- Message from Dr. Cristina Arrieta, DO sent at 04/25/2024 10:35 AM EDT ----- Nodule stable x > [address] also stable. Will discuss at upcoming visit in office. documented in this encounter Plan of Treatment Upcoming Encounters Date Type Department Care Team (Late st Contact Info) Description 07/07/2025 9:30 AM EST Office Visit [facility] [address] [place] [address] Adriane Woods, WELDER ASSISTANT-SET OFF PRESS OPERATOR [address] [place] [address] documented as of this encounter Visit Diagnoses Not on filedocumented in this encounter Additional Health Concerns Infection Onset Date Last Indicated Resolved Time COVID-19 Rule-Out 07/21/2024 07/21/2024 07/21/2024 6:08 PM EST Assessment Noted Time PHQ-9 Depression Total Score: 4 06/05/20 23 1:13 AM EDT documented as of this encounter Care Teams Pre Planning Advisor Relationship Specialty Start Date End Date Diaz Dalton MD PCP - General Family Medicine 10/27/24 documented as of this encounter
--- OUTSIDE RECORDS SUMMARY | 2025-04-24 13:16 | XMS_ITS | Encounter Summary ---
Author Organization [facility] Address [address] [place] [address] Care Team Providers Care Bank Vault Clerk Name Role Phone Diaz Dalton MD Primary Care Provider [phone] Reason for Visit * Reason Comments Med Refill Encounter Details Date Type Department Care Team ([facility] Contact Info) Description 03/15/2024 Refill [facility] [address] [place] [address] Diaz Dalton MD [address] [place] [address] Migraine without aura and without status migrainosus, not intractable Social History Tobacco Use Types Packs/Day Years [...] Upcoming Encounters Date Type Department Care Team ([facility] Contact Info) Description 05/22/2025 1:30 PM EDT Office Visit [facility] [address] [place] [address] Diaz Dalton MD [address] [place] [address] 05/26/2025 1:20 PM EDT Consult [facility] [address] [place] [address] Feliz Benz, DO [address] [facility] [address] [place] [place], [place] [id number] 06/03/2025 1:30 PM EDT Office Visit [facility] [address] [place] [address] Cholo Strong PA [address] [place] [address] 08/19/2025 2:00 PM EST Office Visit [facility] [address] [facility] [place] [address] Feliz Benz, [address] [facility] [address] [place], [place] [address] documented as of this encounter Visit Diagnoses Diagnosis Migraine without aura and without status migrainosus, not intractable documented in this encounter Care Teams Bank Vault Clerk Relationship Specialty Start Date End Date Diaz Dalton MD [address] [place] [address] PCP - General Family Medicine 09/25/23 documented as of this encounter
--- OUTSIDE RECORDS SUMMARY | 2025-04-24 13:16 | XMS_ITS | Encounter Summary ---
Author Organization [facility] Address [address] [place] [address] Care Team Providers Care Vulcan Crewmember Name Role Phone Diaz Dalton MD Primary Care Provider [phone] Reason for Visit * Reason Comments Med Refill Encounter Details Date Type Department Care Team (Late Contact Info) Description 11/12/2024 Refill [facility] [address] [place] [address] Diaz Dalton MD [address] [place] [address] Carpal tunnel syndrome of left wrist; Panic disorder without agoraphobia Social History Tobacco Use Types Packs/Day Years [...] encounter Miscellaneous Notes * Telephone Encounter - PREMA STRONG - 11/13/2024 8:04 AM EDT MEDICATION SENT TO [facility] documented in this encounter Plan of Treatment Upcoming Encounters Date Type Department Care Team (Late Contact Info) Description 05/22/2025 1:30 PM EDT Office Visit [facility] [address] [place] [address] Diaz Dalton MD [address] [place] [address] 05/26/2025 1:20 PM EDT Consult [facility] [address] [facility] [place] [address] Feliz Benz, DO [address] [facility] [address] [place] [place], [place] [id number] 06/03/2025 1:30 PM EDT Office Visit [facility] [address] [place] [address] Cholo Strong PA [address] [place] [address] 08/19/2025 2:00 PM EST Office Visit [facility] [address] [facility] [place] [address] Feliz Benz, DO [address] [facility] [address] [place] [place], [place] [address] documented as of this encounter Visit Diagnoses Diagnosis Carpal tunnel syndrome of left wrist Panic disorder without agoraphobia Panic disorder without agoraphobia documented in this encounter Care Teams Vulcan Crewmember Relationship Specialty Start Date End Date Diaz Dalton MD [address] [place] [address] PCP - General Family Medicine 09/25/23 documented as of this encounter
--- OUTSIDE RECORDS SUMMARY | 2025-04-24 13:16 | XMS_ITS | Encounter Summary ---
Author Organization [facility] Address [address] [place] [address] Care Team Providers Care Graphics Production Specialist Name Role Phone Diaz Dalton MD Primary Care Provider [phone] Encounter Details Date Type Department Care Team ([facility] Contact Info) Description 03/19/2024 Orders Only [facility] [address] [facility] [place] [address] Georgette Dodd PA [address] [facility] [address] [place], [place] [address] Social History Tobacco Use Types Packs/Day Years [...] Upcoming Encounters Date Type Department Care Team ([facility] Contact Info) Description 05/22/2025 1:30 PM EDT Office Visit [facility] [address] [place] [address] Diaz Dalton MD [address] [place] [address] 05/26/2025 1:20 PM EDT Consult [facility] [address] [facility] [place] [address] Feliz Benz, DO [address] [facility] [place] [address] 06/03/2025 1:30 PM EDT Office Visit [facility] [address] [place] [address] Cholo Strong PA [address] [place] [address] 08/19/2025 2:00 PM EST Office Visit [facility] [address] [place] [address] [place] [address] Feliz Benz, DO [address] [facility] [address] [place] [place], [place] [address] documented as of this encounter Visit Diagnoses Not on filedocumented in this encounter Care Teams Graphics Production Specialist Relationship Specialty Start Date End Date Diaz Dalton MD [address] [place] [address] PCP - General Family Medicine 09/25/23 documented as of this encounter
--- OUTSIDE RECORDS SUMMARY | 2025-04-24 13:16 | XMS_ITS | Encounter Summary ---
Author Organization [facility] Address [address] [place] [address] Care Team Providers Care Compliance Review Officer Name Role Phone Diaz Dalton MD Primary Care Provider [phone] Encounter Details Date Type Department Care Team ([facility] Contact Info) Description 02/13/2025 Abstract [facility] [address] [place] [address] Diaz Dalton MD [address] [place] [address] Social History Tobacco Use Types Packs/Day Years [...] Upcoming Encounters Date Type Department Care Team ([facility] Contact Info) Description 05/22/2025 1:30 PM EDT Office Visit [facility] [address] [place] [address] Diaz Dalton MD [address] [place] [address] 05/26/2025 1:20 PM EDT Consult [facility]HEL[facility]Y CARRERA [address] [facility] [facility] [address] Feliz Benz, DO [address] [facility] [place] [address] 06/03/2025 1:30 PM EDT Office Visit [facility] [address] [place] [address] Cholo Strong PA [address] [place] [address] 08/19/2025 2:00 PM EST Office Visit [facility] [address] [facility] [address] Feliz Benz, DO [address] [facility] [address] [place] [place], [place] [address] documented as of this encounter Visit Diagnoses Not on filedocumented in this encounter Care Teams Compliance Review Officer Relationship Specialty Start Date End Date Diaz Dalton MD [address] [place] [address] PCP - General Family Medicine 09/25/23 documented as of this encounter
--- OUTSIDE RECORDS SUMMARY | 2025-04-24 13:33 | XMS_ITS | CCD ---
Author Organization [facility] Care Team Providers Care Bone Density Technician Name Role Phone DIAZ DALTON Attending Unavailchad e DEREKEREShelby, DIAZ MORALES Primary Care Unavailchad Dalton MD, Diaz Morales Primary Care Provider YAAKOV BERRIOS Referring Unavailable ROXANE, DIAZ MORALES Primary Care Unavailabl e SALASGUIDO Bergman Attending Unavailable BRYAN, LEONEL Admitting Unavailable BRYAN, LEONEL Consulting Unavailable AOUADGOVIND Consulting Unavailable LOPEZ JUSTIN Consulting Unavailable JACKSON, ROBSON Attending Unavailable [...] Unavailable DEMAR ., DR VALENCIA Consulting Unavailable NADEREShelby, DR DIAZ Phipps Primary Care Unavailable WILLIEBCORA, DR HARVINDER Cespedes Consulting Unavailable NADERER, DR DIAZ Phipps Admitting Unavailable NADERER, DR DIAZ Phipps Attending Unavailable NADERER, DR DIAZ Phipps Consulting Unavailable NADERER, DR DIZA Phipps Primary Care Unavailable DEMAR ., DR VALENCIA Consulting Unavailable DEMAR ., DR VALENCIA Admitting Unavailable DEMAR ., DR VALENCIA Attending Unavailable NADERER, DR DIAZ Phipps Primary Care Unavailable ZIEBER, DR HARVINDER Cespedes Consulting Unavailable DEMAR ., DR VALENCIA Admitting Unavailable DEMAR ., DR VALENCIA Attending Unavailable DEMAR ., DR VALENCIA Consulting Unavailable ROXANE, DR DIAZ Phipps Primary Care Unavailable DEMAR ., DR VALENCIA Admitting Unavailable DEMAR ., DR VALENCIA Attending Unavailable DEMAR ., DR VALENCIA Consulting Unavailable NADJOHNR, DR DIAZ Phipps Primary Care Unavailable NADERER, DR DIAZ Phipps Primary Care Unavailable MYRNA, DR CHERI Cespedes Attending Unavailable MYRNA, DR CHERI Cespedes Consulting Unavailable MYRNA, DR CHERI Cespedes Admitting Unavailable Nadereshelby WERNER, Diaz Primary Care Provider ANGELA WITT Attending Unavailable NADERER, DIAZ Referring Unavailable NADERER, DIAZ Primary Care Unavailable TALEB, LIBBY Attending Unavailable ANGELA WITT Referring Unavailable NADERER, DIAZ Primary Care Unavailable NADERER, DIAZ Referring Unavailable NADERER, DIAZ Primary Care Unavailable TALEB, MOHAMMAD Admitting Unavailable TALEB, KATD Attending Unavailable NADERER, DIAZ Primary Care Unavailable RAEANN SAUCEDO Attending Unavailable NADERER, DIAZ Primary Care Unavailable TALEB, LIBBY Attending Unavailable TALEB, KATD Referring Unavailable NADERER, DIAZ Primary Care Unavailable NADERER, DIAZ Referring Unavailable NADERER, DIAZ Primary Care Unavailable LINDSAY ARRIETA Attending Unavailable NADERER, DIAZ Referring Unavailable NADERER, DIAZ Primary Care Unavailable LINDSAY ARRIETA Attending Unavailable NADERER, DIAZ Referring Unavailable NADERER, DIAZ Primary Care Unavailable Mannyr , Diaz Primary Care Provider [phone] Arianna Miller Admitting Unavail able PaulArianna valle Attending Unavail able NADERER, DIAZ A Primary Care Unavailable Paul, Arianna Carlos Attending Unavail able Arianna Miller Admitting Unavail able NADERER, DIAZ A Primary Care Unavailable Paul, Arianna Carlos Attending Unavail able NADERER, DIAZ A Primary Care Unavailable Paul, Arianna Carlos Admitting Unavail able Arianna Miller Attending Unavail able Arianna Miller Admitting Unavail able NADERER, DIAZ A Primary Care Unavailable Paul, Arianna Carlos Attending Unavail able Paul, Arianna Carlos Admitting Unavail able NADERER, DIZA A Primary Care Unavailable Diaz Dalton MD Primary Care Provider Diaz Dalton MD Primary Care Provider [phone] Diaz Dalton MD Primary Care Provider Diaz Dalton MD Primary Care Provider [phone] Diaz Dalton MD Primary Care Provider [phone] NADERER, DIAZ Primary Care Unavailable LINDSAY ARRIETA Attending Unavailable MEENAKSHI, LINDSAY Palomino Referring Unavailable NADERER, DIAZ Referring Unavailable NADERER, DIAZ Primary Care Unavailable NADERER, DIAZ Primary Care Unavailable JAKOB ARRIETANA M Referring Unavailable NADERER, DIAZ Primary Care Unavailable LINDSAY ARRIETA Attending Unavailable MEENAKSHI, LINDSAY Georgette Referring Unavailable NADERER, DIAZ Primary Care Unavailable MEENAKSHI, LINDSAY M Referring Unavailable NADERER, DIAZ Referring Unavailable NADERER, DIAZ Primary Care Unavailable NADERER, DIAZ Primary Care Unavailable NADERER, DIAZ Primary Care Unavailable REBA LOCKWOOD Attending Unavailable REBA LOCKWOOD Referring Unavailable NADERER, DIAZ Primary Care Unavailable NADERER, DIAZ Referring Unavailable NADERER, DIAZ Referring Unavailable NADERER, DIAZ Primary Care Unavailable KATELYN RECIO Attending Unavailable NADERER, DIAZ Primary Care Unavailable WILL CAGLE Attending Unavailable NADERER, DIAZ Referring Unavailable NADERER, DIAZ Primary Care Unavailable NADERER, DIAZ Referring Unavailable NADERER, DIAZ Primary Care Unavailable HAIR SEE Attending Unavailable NADERER, DIAZ Primary Care Unavailable SANJIV TAYLOR Attending Unavailable JACK HOLLAND Admitting Unavailable NADERER, DIAZ Primary Care Unavailable HAIR SEE Referring Unavailable NADERER, DIAZ Primary Care Unavailable SMITHA GERMAIN Referring Unavailable NADERER, DIAZ Referring Unavailable NADERER, DIAZ Primary Care Unavailable NADERER, DIAZ Primary Care Unavailable ALIYA SOLORZANO Admitting Unavailable ALIYA SOLORZANO Attending Unavailable ALIYA SOLORZANO Referring Unavailable NADERER, DIAZ Referring Unavailable NADERER, DIAZ Primary Care Unavailable KATELYN RECIO Attending Unavailable NADERER, DIAZ Primary Care Unavailable HUMBERTO CARRASCO Attending Unavailable NADERER, DIAZ Referring Unavailable NADERER, DIAZ Primary Care Unavailable NADERER, DIAZ Referring Unavailable NADERER, DIAZ Primary Care Unavailable KATELYN RECIO Attending Unavailable NADERER, DIAZ Primary Care Unavailable LINDSAY ARRIETA Referring Unavailable LINDSAY ARRIETA Attending Unavailable Diaz Dalton MD Primary Care Provider SMITHA GERMAIN Attending Unavailable NADERER, DIAZ Referring Unavailable NADERER, DIAZ Primary Care Unavailable NADERER, DIAZ Referring Unavailable NADERER, DIAZ Primary Care Unavailable LINDSAY ARRIETA Attending Unavailable KAYLAN ROBERTO Attending Unavailable NADERER, DIAZ Referring Unavailable NADERER, DIAZ Primary Care Unavailable PACHECO MADRIGAL Attending Unavailable NADERER, DIAZ Referring Unavailable NADERER, DIAZ Primary Care Unavailable LINDSAY ARRIETA Attending Unavailable NADERER, DIAZ Referring Unavailable NADERER, DIAZ Primary Care Unavailable CARMEN BOWMAN Attending Unavailable NADERER, DIAZ Attending Unavailable NADERER, DIAZ Attending Unavailable NADERER, DIAZ Attending Unavailable SHAMA MEDINA Attending Unavailable SHAMA MEDINA Referring Unavailable STEPANIC, , HARINDER Lynn Attending Unavaila ble FELIZ BENZ Attending Unavailable SHAKILA VALADEZ Attending Unavailable STEPANIC, JR., HARINDER Lynn Referring Unavaila UBALDO Sen Attending Unavailable STEPANIC, JR., HARINDER Lynn Referring Unavaila ble FABIOLA BOOGIE Attending Unavailable STEPANIC, JR., HARINDER Lynn Referring Unavaila ble FABIOLA BOOGIE Attending Unavailable STEPANIC, JR., HARINDER Lynn Referring Unavaila ble DEMARFELIZ BRYANT Attending Unavailable STEPANIC, JR., HARINDER Lynn Attending Unavaila ble FELIZ BENZ Attending Unavailable ROXANE, DIAZ Attending Unavailable DEREKEREShelby, DIAZ Attending Unavailable ARIANNA MILLER Attending Unavailable BARRY SNOWDEN Attending Unavailable BARRY SNOWDEN Attending Unavailable ROXANE, DIAZ Attending Unavailable FELIZ BENZ Attending Unavailable Allergies Allergy Classification Reported Allergen(s) Allergy Type Date of Onset Reaction(s) Facility (20 sources) Sulfamethoxazole / Trimethoprim; Translations: [SULFAMETHOXAZOLE-TR IMETHOPRIM] Drug Allergy 2 Itching, Hives, Other (See Comments) [facility] (1 source) Amoxicillin / Clavulanate Drug Allergy [facility] (1 source) levoFLOXacin Drug Allergy 0 [facility] (2 sources) Sulfamethoxazole / Trimethoprim; Translations: [Bactrim] Drug Allergy 3 [facility] Medications Current Medications Medication Drug Class(es) Dates Sig (Normalized) Sig (Original) acetaminophen 325 mg oral tablet (2 sources) Start: 12-20-2023 take 1 tablet by mouth every four hours as needed 650 mg, oral, Every 4 hours PRN, Temperature greater than 38.3 C, Starting on Mon12/20/23 at 2211, [Warning: Total Acetaminophen not to exceed more than 4 grams (4000 mg) in 24 hours] Start: 09-29-2021 acetaminophen (TYLENOL) 160 MG/5ML solution 650 mg acetaminophen 325 mg / HYDROcodone bitartrate 5 mg oral tablet (5 sources) Opioid Agonist Start: 06-14-2024 End: 06-17-2024 take 1 tablet by mouth every six hours for pain HYDROcodone-acetaminophen ([place]) 5-325 MG tablet Indications: Post-operative pain Take 1 tablet by mouth every 6 (six) hours if needed for severe pain for up to 3 days 12 tablet 06/14/2024 06/17/2024 Active Start: 08-10-2023 take 1 tablet by raegan th four times daily as needed for pain HYDROcodone-acetaminophen ([place]) 5-325 MG tablet Indications: Cavitary lesion of lung Take 1 tablet by mouth 4 (four) times a day as needed for severe pain 28 tablet 0 08/10/2023 Active take 1 tablet by raegan th every six hours as needed for [...] MG tablet every 12 (twelve) hours Active [id number] 200 actuat albuterol 0.09 mg/actuat metered dose inhaler (20 sources) beta2-Adrenergic Agonist Start: 02-25-2025 take 2 puff(s) by mouth every four hours as needed for wheezing albuterol HFA 90 mcg/act inhaler Indications: SOB (shortness of breath) INHALE 2 PUFFS BY MOUTH EVERY 4 HOURS NEEDED FOR WHEEZING 8.5 g 11 02/25/2025 Active Start: 12-22-2023 take 2 puff(s) by in halation every six hours as needed for wheezing [...] albuterol (PRO VENTIL) nebulizer solution 2.5 mg albuterol 0.833 mg/ml / ipratropium bromide 0.167 mg/ml inhalation solution (1 source) Anticholinergic, beta2-Adrenergic Agonist Start: 12-20-2023 take 3 mL by inhalation every six hours as needed for wheezing 3 mL, nebulization, Every 6 hours PRN, wheezing, Starting on Mon12/20/23 at 2219, Implement INPATIENT/ED Bronchodilator Clinical Practice Guidelines? Yes, Document: \[email or web address]\[email or web address]\[email or web address]_Refer ence\Orders\Respiratory Care Guidelines\CPG Bronchodilator 2020.pdf aluminum hydroxide 40 mg/ml / magnesium hydroxide 40 mg/ml / simethicone 4 mg/ml oral suspension (1 source) Start: 12-20-2023 take 30 mL by mouth four times daily at bedtime as needed 30 mL, oral, 4 times daily after meals and at bedtime as needed, dyspepsia, Starting on Mon12/20/23 at 2212, Look-alike/sound-alike medication - verify indication for use. [place] well., Indications: dyspepsia atorvastatin 40 mg oral tablet (20 sources) HMG-CoA Reductase Inhibitor Start: 12-21-2023 End: 01-10-2026 take 1 tablet by mouth once daily atorvastatin (Lipitor) 40 MG tablet Indications: Dyslipidemia Take 1 tablet (40 mg) by mouth Daily 30 tablet 11 01/10/2025 01/10/2026 Active black cohosh extract 40 mg oral capsule (20 sources) Start: 11-02-2023 take 1 capsule by mouth once daily Black Cohosh (Black Cohosh Hot Flash Relief) 40 MG capsule Indications: Hot flashes due to menopause Take 1 each by mouth Daily 30 capsule 11 11/02/2023 Active Blood Glucose Monitoring Suppl (True Metrix Meter) w/Device kit (20 sources) Start: 02-25-[address] (True Metrix Meter) w/Device kit Indications: Type 2 diabetes mellitus with hyperglycemia, with long-term current use of insulin (HCC) Test daily 1 kit 02/25/2025 Active 24 hr buPROPion hydrochlorid e 300 mg extended release oral tablet (20 sources) Aminoketone Start: 12-18-2023 take 1 tablet by mouth once daily buPROPion XL (Wellbutrin XL) 300 MG 24 hr tablet Indications: Panic disorder without agoraphobia TAKE 1 TABLET BY MOUTH ONCE DAILY 30 tablet 10 11/13/2024 Active Start: 07-18-2023 take 1 tablet by raegan th every twenty-four hours in the morning buPROPion XL (Wellbutrin XL) 300 MG 24 hr tablet Take 300 mg by mouth in the morning. 0 07/18/2023 Active cefTRIAXone 1000 mg injection (2 sources) Cephalosporin Antibacterial Start: 12-21-2023 take 1000 mg intravenously every twenty-four hours 1,000 mg, intravenous, at 100 mL/hr, Administer over 30 Minutes, Every 24 hours, First dose on [place] 12/21/23 at 2000, Look-alike/sound-alike medication - verify indication for use. Do not co-administer with calcium-containing solutions such as Lactated Ringers., Indication: UTI Start: 12-20-2023 End: 12-20-2023 1,000 mg, intravenous, at 10 0 mL/hr, Administer over 30 Minutes, Once, On Mon12/20/23 at 1930, For 1 dose, Look-alike/sound-alike medication - verify indication for use. Do not co-administer with calcium-containing solutions such as Lactated Ringers., Indication: UTI cephalexin 500 mg oral capsule (2 sources) Cephalosporin Antibacterial Start: 12-22-2023 End: 12-26-2023 take 1 capsule by mouth in the morning, then take 1 capsule by mouth at bedtime CEPHalexin (KEFLEX) 500 mg capsule Take 1 capsule (500 mg total) by mouth in the morning and 1 capsule (500 mg total) before bedtime. Do all this for 4 days. 8 capsule 12/22/2023 12/26/2023 Active cholecalciferol 0.05 mg oral tablet (20 sources) Vitamin D Start: 02-03-2025 take 2 tablets by mouth once daily cholecalciferol (Vitamin D-3) 50 MCG (1999 UT) tablet Indications: Vitamin D deficiency TAKE 2 TABLETS BY MOUTH DAILY 60 tablet 11 02/03/2025 Active Start: 12-21-2023 take 400 [IU] by raegan th once daily 400 Units, oral, Daily, First dose on [place] 12/21/23 at 0900 Start: 10-02-2023 End: 08-14-2024 take 2 tablets by mouth once daily cholecalciferol (Vitamin D-3) 50 MCG (1999 UT) tablet Indications: Vitamin D deficiency Take 2 tablets (100 mcg) by mouth Daily 60 tablet 5 08/14/2024 Active take 1 tablet by raegan th in the morning cholecalciferol, vitamin D3, 400 [...] days. 14 tablet 07/04/2024 07/11/2024 Active citalopram 40 mg oral tablet (20 sources) Serotonin Reuptake Inhibitor Start: 02-10-2025 take 1 tablet by mouth once daily citalopram (CeleXA) 40 MG tablet Indications: Mild episode of recurrent major depressive disorder Take 1 tablet (40 mg) by mouth Daily 30 tablet 5 02/10/2025 Active Start: 03-15-2024 End: 02-10-2025 citalopram (CeleXA) 20 mg ta blet 08/13/2024 Active clonazePAM 1 mg oral tablet (20 sources) Benzodiazepine clonazePAM (Klon oPIN) 1 mg tablet Take 1 tablet (1 mg total) by mouth as needed in the morning and 1 tablet (1 mg total) as needed in the evening for seizures. Active take 1 tablet by raegan th three times daily as needed for anxiety clonazePAM (KLONOPIN) 1 MG tablet Take 1 mg by mouth 3 times daily as needed for Anxiety. 0 Active Continuous Glucose Community Relations Liaison (FreeStyle Crystal 2 [place]) device (7 sources) Start: 10-25-2024 End: 11-07-2024 Continuous Glucose Community Relations Liaison (FreeStyle Crystal 2 [place]) device Indications: Type 2 diabetes mellitus with microalbuminuria, with long-term current use of insulin (CMS/HCC) Test once daily 1 each 10/25/2024 11/07/2024 Discontinued Start: 10-25-2024 Continuous Glu cose Community Relations Liaison (FreeStyle Crystal 2 [place]) device Indications: Type 2 diabetes mellitus with microalbuminuria, with long-term current use of insulin (CMS/HCC) Test once daily 1 each 10/25/2024 Active Continuous Glucose Community Relations Liaison (FreeStyle Crystal 3 [place]) device (20 sources) Start: 11-07-2024 Continuous Glu cose Community Relations Liaison (FreeStyle Crystal 3 [place]) device Indications: Type 2 diabetes mellitus with hyperglycemia, with long-term current use of insulin ([facility]) 1 Application continuously 1 each 11/07/2024 Active Start: 11-07-2024 End: 11-07-2024 Continuous Glucose Community Relations Liaison (FreeStyle Crystal 3 [place]) device Indications: Type 2 diabetes mellitus with hyperglycemia, with long-term current use of insulin (CMS/HCC) 1 Application continuously 1 each 11/07/2024 11/07/2024 Discontinued Start: 11-07-2024 Continuous Glu cose Community Relations Liaison (FreeStyle Crystal 3 [place]) device Indications: Type 2 diabetes mellitus with hyperglycemia, with long-term current use of insulin (CMS/HCC) 1 Application continuously 1 each 11/07/2024 Active Continuous Glucose Sensor (FreeStyle Crystal 14 Day Sensor) misc (3 sources) Start: 09-23-2024 Continuous Glu cose Sensor (FreeStyle Crystal 14 Day Sensor) misc Indications: Type 2 diabetes mellitus with microalbuminuria, with long-term current use of insulin (CMS/HCC) apply 1 SENSOR to back OF UPPER ARM REMOVE AND REPLACE every 14 d... (REFER TO PRESCRIPTION NOTES). 2 each 09/23/2024 Active Start: 09-19-2024 End: 09-23-2024 Continuous Glucose Sensor (F reeStyle Crystal 14 Day Sensor) [facility] [place] Indications: Type 2 diabetes mellitus with microalbuminuria, with long-term current use of insulin (CMS/HCC) apply 1 SENSOR to back OF UPPER ARM REMOVE AND REPLACE every 14 d... (REFER TO PRESCRIPTION NOTES). 2 each 09/19/2024 09/23/2024 Discontinued (Reorder) Start: 09-19-2024 Continuous Glu cose Sensor (FreeStyle Crystal 14 Day Sensor) [facility] [place] Indications: Type 2 diabetes mellitus with microalbuminuria, with long-term current use of insulin (CMS/HCC) apply 1 SENSOR to back OF UPPER ARM REMOVE AND REPLACE every 14 d... (REFER TO PRESCRIPTION NOTES). 2 each 09/19/2024 Active Continuous Glucose Sensor (FreeStyle Crystal 3 Sensor) [facility] [place] (20 sources) Start: 04-09-2025 Continuous Glu cose Sensor (FreeStyle Crystal 3 Sensor) [facility] [place] Indications: Type 2 diabetes mellitus with hyperglycemia, with long-term current use of insulin ([facility]) 1 Units 1 (one) time per week 1 each 04/09/2025 Active Start: 11-04-2024 Continuous Glu cose Sensor (FreeStyle Crystal 3 Sensor) [facility] [place] Indications: Type 2 diabetes mellitus with hyperglycemia, with long-term current use of insulin ([facility]) USE TO MONITOR BLOOD SUGAR DIRECTED. CHANGE SENSOR EVERY 14 DAYS. 2 each 11/04/2024 Active Start: 11-04-2024 Continuous Glu cose Sensor (FreeStyle Crystal 3 Sensor) [facility] [place] Indications: Type 2 diabetes mellitus with hyperglycemia, with long-term current use of insulin (CMS/HCC) USE TO MONITOR BLOOD SUGAR DIRECTED. CHANGE SENSOR EVERY 14 DAYS. 2 each 11/04/2024 Active Start: 10-29-2024 Continuous Glu cose Sensor (FreeStyle Crystal 3 Sensor) [facility] [place] Indications: Type 2 diabetes mellitus with hyperglycemia, with long-term current use of insulin (CMS/HCC) 1 each every 14 (fourteen) days 2 each 10/29/2024 Active Start: 09-25-2024 Continuous Glu cose Sensor (FreeStyle Crystal 3 Sensor) [facility] [place] Indications: Type 2 diabetes mellitus with hyperglycemia, with long-term current use of insulin ([facility]) 1 each every 14 (fourteen) days 2 each 09/25/2024 Active Start: 09-23-2024 End: 09-25-2024 Continuous Glucose Sensor (F reeStyle Crystal 3 Sensor) [facility] [place] Indications: Type 2 diabetes mellitus with hyperglycemia, with long-term current use of insulin ([facility]) 1 each every 14 (fourteen) days 2 each 09/23/2024 09/25/2024 Discontinued (Reorder) cyclobenzaprine hydrochloride 10 mg oral tablet (20 sources) Muscle Relaxant Start: 05-13-2024 take 1 tablet by mouth three times daily as needed for muscle spasms cyclobenzaprine (Flexeril) 10 MG tablet Indications: Spondylosis without myelopathy TAKE 1 TABLET BY MOUTH THREE TIMES DAILY NEEDED FOR MUSCLE SPASMS 60 tablet 10 08/14/2024 Active dicyclomine hydrochloride 20 mg oral tablet (20 sources) Anticholinergic Start: 10-15-2024 take 1 tablet by mouth four times daily as needed dicyclomine (Bentyl) 20 MG tablet Indications: Irritable bowel syndrome with diarrhea TAKE 1 TABLET BY MOUTH FOUR TIMES DAILY NEEDED 60 tablet 10 10/15/2024 Active Start: 11-17-2023 take 1 tablet by raegan th four times daily as needed dicyclomine (Bentyl) 20 MG tablet Indications: Irritable bowel syndrome with diarrhea TAKE 1 (ONE) TABLET BY MOUTH FOUR TIMES DAILY, NEEDED 60 tablet 10 11/17/2023 Active Start: 01-18-2023 take 1 tablet by raegan th four times daily as needed dicyclomine (Bentyl) 20 MG tablet Take 20 mg by mouth 4 (four) times a day as needed. 0 01/18/2023 Active take 1 tablet by raegan th every six hours dicyclomine (BENTYL) 20 mg tablet Take 1 tablet (20 mg total) by mouth every 6 (six) hours. Active 0.5 ml dulaglutide 1.5 mg/ml auto-injector (20 sources) GLP-1 Receptor Agonist Start: 03-12-2025 End: 04-02-2025 inject 0.75 mg by subcutaneous injection every week Trulicity 0.75 MG/0.5ML solution auto-injector Indications: Type 2 diabetes mellitus with hyperglycemia, with long-term current use of insulin (HCC) INJECT 0.75 MG SUBCUTANEOUSLY ONCE WEEKLY 2 mL 11 04/02/2025 Active Start: 01-01-2025 End: 02-10-2025 inject 0.75 mg by subcutaneous injection every week Dulaglutide (Trulicity) 0.75 MG/0.5ML solution auto-injector Indications: Type 2 diabetes mellitus with hyperglycemia, with long-term current use of insulin (CMS/HCC) Inject 0.75 mg under the skin 1 (one) time per week 2 mL 2 01/01/2025 02/10/2025 Discontinued dulaglutide (Trulicity) 4.5 MG/0.5ML solution pen-injector (3 sources) Start: 10-02-2023 inject 4.5 mg by subcutaneous injection every week dulaglutide (Trulicity) 4.5 MG/0.5ML solution pen-injector Indications: Type 2 diabetes mellitus with microalbuminuria, with long-term current use of insulin (CMS/HCC) Inject 4.5 mg under the skin 1 (one) time per week 4 each 5 10/02/2023 Active empagliflozin 25 mg oral tablet (20 sources) Sodium-Glucose Cotransporter 2 Inhibitor Start: 04-09-2025 take 1 tablet by mouth once daily empagliflozin (Jardiance) 25 MG Indications: Type 2 diabetes mellitus with hyperglycemia, with long-term current use of insulin ([facility]) Take 1 tablet (25 mg) by mouth Daily 30 tablet 5 04/09/2025 Active Start: 11-07-2024 End: 11-07-2024 take 1 tablet by mouth once daily empagliflozin (Jardiance) 25 MG Indications: Type 2 diabetes mellitus with hyperglycemia, with long-term current use of insulin ([facility]) Take 1 tablet (25 mg) by mouth Daily 30 tablet 5 11/07/2024 Active Start: 10-07-2024 End: 11-07-2024 take 1 tablet by mouth in the morning empagliflozin (JARDIANCE) 10 mg tablet tablet Take 1 tablet (10 mg total) by mouth in the morning. 90 tablet 3 10/07/2024 Active 0.4 ml enoxaparin sodium 100 mg/ml prefilled syringe (1 source) Low Molecular Weight Heparin Start: 12-21-2023 inject 40 mg by subcutaneous injection every twelve hours 40 mg, subcutaneous, Every 12 hours, First dose (after last reorder) on [facility] 12/21/23 at 0600, Look-alike/sound-alike medication - verify indication for use. fluconazole 150 mg oral tablet (20 sources) Azole Antifungal Start: 03-25-2024 take 1 tablet by mouth once fluconazole (Diflucan) 150 MG tablet Take 150 mg by mouth 1 (one) time 03/25/2024 Active Start: 09-29-2021 End: 09-30-2021 fluconazole (DIFLUCAN) table t 200 mg oigaizdoqtj-xfyhexlbj-uuzjig er (TRELEGY ELLIPTA) 200-62.5-25 mcg blister with device (20 sources) Start: 03-21-2024 take 1 puff(s) by inhalation in the morning iyvjrtooypr-emjbuzylc-cmutrhbt (TRELEGY ELLIPTA) 200-62.5-25 mcg blister with device Indications: Moderate persistent asthma without complication Inhale 1 puff in the morning. 60 each 03/21/2024 Active Start: 02-19-2024 End: 03-21-2024 take 1 puff(s) by inhalation in the morning qvfskvffcog-hlfdduydy-hpvujyzq (TRELEGY ELLIPTA) 200-62.5-25 mcg blister with device Indications: Moderate persistent asthma without complication Inhale 1 puff in the morning. 60 each 02/19/2024 03/21/2024 Discontinued (Reorder) Start: 02-19-2024 take 1 puff(s) by inhalation in the morning hmsjepbnuqm-yklutdzmw-tonaiqca (TRELEGY ELLIPTA) 200-62.5-25 mcg blister with device Indications: Moderate persistent asthma without complication Inhale 1 puff in the morning. 60 each 02/19/2024 Active FREESTYLE CRYSTAL 14 DAY SENSO R kit (16 sources) Start: 08-14-2024 FREESTYLE LIBR E 14 DAY SENSOR kit 08/14/2024 Active Start: 08-14-2024 FREESTYLE LIBR E 14 DAY SENSOR kit APPLY 1 SENSOR TO BACK OF UPPER ARM. REMOVE AND REPLACE EVERY 14 DAYS 08/14/2024 Active furosemide 40 mg oral tablet (20 sources) Loop Diuretic Start: 04-09-2025 take 1 tablet by mouth once daily furosemide (Lasix) 40 MG tablet Indications: Chronic heart failure with preserved ejection fraction (HFpEF) (HCC) Take 1 tablet (40 mg) by mouth Daily 30 tablet 5 04/09/2025 Active Start: 08-06-2024 End: 11-07-2024 take 1 tablet by mouth once daily furosemide (Lasix) 40 MG tablet Indications: Chronic heart failure with preserved ejection fraction (HFpEF) (HCC) Take 1 tablet (40 mg) by mouth Daily 30 tablet 5 11/07/2024 Active Start: 07-18-2024 take 1 tablet by raegan th once daily furosemide (LASIX) 20 mg tablet Indications: Dyspnea on exertion , Pulmonary hypertension (CMS-HCC) Take 1 tablet (20 mg total) by mouth daily. 90 tablet 3 07/18/2024 Active End: 07-18-2024 take 1 tablet by mouth once daily as needed furosemide (LASIX) 40 mg tablet Take 1 tablet (40 mg total) by mouth daily as needed. Has not been taking med 07/18/2024 Discontinued glucagon (rdna) 1 mg injection (2 sources) Antihypoglycemic Agent Start: 12-20-2023 1 mg, i ntramuscular, As needed, low blood sugar, blood glucose less than 70 mg/dL and unconscious or NPO without IV access., Starting on Mon12/20/23 at 2211, If conscious and not NPO, immediately follow with meal tray or high protein (7Grams) snack if tray not available. If NPO, initiate IV 5% Dextrose/Water at 100 mL/hr and contact prescriber for additional orders. If blood glucose is not greater than 70 mg/dL after initial treatment, repeat treatment. Start: 09-29-2021 glucagon (rDNA ) injection 1 mg 150 ml glucose 50 mg/ml injection (7 sources) Start: 12-20-2023 25 mL, intrave nous, As needed, low blood sugar, blood glucose less than 70 mg/dL and unconscious or NPO with IV access, Starting on Mon12/20/23 at 2211, Push over 1-3 minutes STAT. If conscious and not NPO, immediately follow with meal tray or high protein (7 grams) snack if tray not available. If NPO, initiate 5% dextrose in water at 100 mL/hr and contact prescriber for additional orders. If blood glucose is not greater than 70 mg/dL after initial treatment, repeat treatment. VESICANT (RED) Warning: HYPERTONIC solution. Start: 12-20-2023 take 70 mg intraveno usly every hour 100 mL/hr, intravenous, Continuous PRN, blood glucose less than 70 mg/dL, Starting on Mon12/20/23 at 2211, Use immediately following dextrose 50% or glucagon treatment for patients who are unconscious or NPO. Contact prescriber for additional orders. If blood glucose is not greater than 70 mg/dL after initial treatment, repeat treatment. Start: 12-20-2023 15 g, oral, As needed, low blood sugar, blood glucose less than 70 mg/dL, Starting on Mon12/20/23 at 2211, If patient conscious and taking PO. If blood glucose is not greater than 70 mg/dL after initial treatment, repeat treatment. Start: 09-29-2021 glucose (GLUTO SE) 40 % [...] hours as needed for Cramping 0 Active ibuprofen 800 mg oral tablet (4 sources) Nonsteroidal Anti-inflammatory Drug Start: 04-14-2025 take 1 tablet by mouth every six hours for pain ibuprofen 800 MG tablet Indications: Pelvic pain in female Take 1 tablet (800 mg) by mouth every 6 (six) hours if needed for mild pain for up to 30 doses 30 tablet 04/14/2025 Active End: 10-02-2021 take 1 tablet by mouth every six hours as needed for pain ibuprofen (ADVIL;MOTRIN) 600 MG tablet Take 600 mg by mouth every 6 hours as needed for Pain 0 10/02/2021 Discontinued (Stop Taking at Discharge) 3 ml insulin aspart, human 100 unt/ml pen injector (20 sources) Insulin Analog Start: 12-26-2024 insulin aspart FlexPen (NovoLOG) 100 UNIT/ML pen Indications: Type 2 diabetes mellitus with hyperglycemia, with long-term current use of insulin (HCC) INJECT SUBCUTANEOUSLY THREE TIMES A DAY PER SLIDING SCALE; *30 TO 40 UNITS DAILY* 15 mL 5 12/26/2024 Active Start: 08-05-2024 End: 08-06-2024 insulin aspart FlexPen (Ekaterina LOG) 100 UNIT/ML pen Indications: Type 2 diabetes mellitus with hyperglycemia, with long-term current use of insulin (CMS/HCC) INJECT SUBCUTANEOUSLY THREE TIMES A DAY PER SLIDING SCALE; *30 TO 40 UNITS DAILY* 15 mL 5 08/06/2024 Active Start: 08-10-2023 End: 08-05-2024 insulin aspart FlexPen (Ekaterina LOG) 100 UNIT/ML pen Indications: Type 2 diabetes mellitus with hyperglycemia, with long-term current use of insulin (CMS/HCC) INJECT SUBCUTANEOUSLY THREE TIMES A DAY PER SLIDING SCALE *30 TO 40 UNITS DAILY* 15 mL 11 08/10/2023 07/29/2024 Discontinued (Reorder) inject 0.07 mL by quiroz [...] pen injector (20 sources) Insulin Analog Start: 02-10-2025 inject 20 [IU] by subcutaneous injection in the morning insulin glargine (Semglee) 100 UNIT/ML pen Indications: Type 2 diabetes mellitus with hyperglycemia, with long-term current use of insulin (HCC) Inject 20 Units under the skin in the morning and 20 Units before bedtime. 15 mL 3 02/10/2025 Active Start: 11-12-2024 End: 02-10-2025 insulin glargine (Semglee) 1 00 UNIT/ML pen Indications: Type 2 diabetes mellitus with hyperglycemia, with long-term current use of insulin (CMS/HCC) Inject 15 Units under the skin in the morning. 3 mL 3 11/12/2024 02/10/2025 Discontinued (Reorder) Start: 11-05-2024 insulin glargi ne (Semglee) 100 UNIT/ML pen Indications: Type 2 diabetes mellitus with hyperglycemia, with long-term current use of insulin (CMS/HCC) Inject 15 Units under the skin in the morning. 3 mL 3 11/05/2024 Active Start: 10-28-2024 insulin glargi ne (Semglee) 100 UNIT/ML pen Indications: Type 2 diabetes mellitus with hyperglycemia, with long-term current use of insulin (CMS/HCC) Inject 15 Units under the skin in the morning. 10/28/2024 Active Start: 10-23-2024 End: 10-28-2024 insulin glargine (Semglee) 1 00 UNIT/ML pen Indications: Type 2 diabetes mellitus with hyperglycemia, with long-term current use of insulin (CMS/HCC) Inject 30 Units under the skin at bedtime 9 mL 5 10/23/2024 10/28/2024 Discontinued (Dose adjustment) Start: 07-24-2024 insulin glargi ne (Semglee) 100 [...] 5 each 5 06/06/2024 06/07/2024 Discontinued Start: 05-29-2024 inject 15 [IU] by quiroz bcutaneous injection in the morning insulin glargine (Lantus SoloStar) 100 UNIT/ML pen Indications: Type 2 diabetes mellitus with microalbuminuria, with long-term current use of insulin (CMS/HCC) Inject 15 Units under the skin in the morning and 15 Units before bedtime. 5 each 5 05/29/2024 Active Start: 05-29-2024 inject 15 [IU] by quiroz bcutaneous injection in the morning insulin glargine (Lantus SoloStar) 100 UNIT/ML pen Indications: Type 2 diabetes mellitus with microalbuminuria, with long-term current use of insulin (CMS/HCC) Inject 15 Units under the skin in the morning and 15 Units before bedtime. 5 each 5 05/29/2024 Active Start: 04-05-2024 End: 05-29-2024 inject 15 [IU] by subcutaneous injection in the morning insulin glargine (Lantus SoloStar) 100 UNIT/ML pen Indications: Type 2 diabetes mellitus with microalbuminuria, with long-term current use of insulin (CMS/HCC) Inject 15 Units under the skin in the morning and 15 Units before bedtime. 5 each 5 05/09/2024 Active Start: 12-21-2023 15 Units, subc utaneous, Daily, First dose on Joaquina 12/21/23 at 0900, Look-alike/sound-alike medication - verify indication for use. Prime with 2 units of insulin prior to administration. Basal (long acting) insulin for subcutaneous administration only. Do not mix with any other insulin. Pre-filled pens stable 28 days at room temperature. Start: 10-01-2021 insulin glargi ne (LANTUS) injection [...] pen Inject into the skin 0 Active 3 ml insulin lispro 100 unt/ml pen injector (6 sources) Insulin Analog Start: 12-21-2023 inject 400 mg by subcutaneous injection three times daily at mealtime, then inject 2 [IU] by subcutaneous injection 15 minutes after mealtime 2-10 Units, subcutaneous, 3 times daily with meals, First dose on Mon12/21/23 at 0800, Daytime hyperglycemia dosing. For blood glucose 151-200 mg/dL, give 2 units. For blood glucose 201-250 mg/dL, give 4 units. For blood glucose 251-300 mg/dL, give 6 units. For blood glucose 301-350 mg/dL, give 8 units. For blood glucose 351-400 mg/dL, give 10 units. Give even if NPO or meals skipped. Do NOT give more often then every 4 hours when NPO. Notify prescriber if blood glucose greater than 400 mg/dL. Look-alike/sound-alike medication - verify indication for use. Prime with 2 units of insulin prior to administration. Prandial/supplemental Insulin. Pre-filled pens stable 28 days at room temperature. Insulin lispro should be administered within 15 minutes before or immediately after a meal. Start: 12-20-2023 End: 12-20-2023 Starting on Mon12/20/23 at 2 234, For 1 dose, Emerson Dooley: cabinet override Look-alike/sound-alike medication - verify indication for use. Prime with 2 units of insulin prior to administration. Prandial/supplemental Insulin. Pre-filled pens stable 28 days at room temperature. Insulin lispro should be administered within 15 minutes before or immediately after a meal. Start: 12-20-2023 inject 400 mg by sub cutaneous injection once daily, then inject 2 [IU] by subcutaneous injection 15 minutes after mealtime 2-8 Units, subcutaneous, Nightly, First dose on Mon12/20/23 at 2230, Bedtime hyperglycemia dosing. For blood glucose 201-250 mg/dL, give 2 units. For blood glucose 251-300 mg/dL, give 4 units. For blood glucose 301-350 mg/dL, give 6 units. For blood glucose 351-400 mg/dL, give 8 units. Give even if NPO or meals skipped. Do NOT give more often then every 4 hours when NPO. Notify prescriber if blood glucose greater than 400 mg/dL. Look-alike/sound-alike medication - verify indication for use. Prime with 2 units of insulin prior to administration. Prandial/supplemental Insulin. Pre-filled pens stable 28 days at room temperature. Insulin lispro should be administered within 15 minutes before or immediately after a meal. Start: 09-29-2021 End: 09-29-2021 insulin lispro (HUMALOG) inj ection vial 0-18 Units N-Uqcuibdubdyf-Pzlhq-B12-B6 (Metanx) 3-90.314-2-35 MG capsule (9 sources) Start: 10-09-2024 End: 01-07-2025 take 1 capsule by mouth in the morning X-Pnjtipkhrndp-Blleh-B12-B6 (Metanx) 3-90.314-2-35 MG capsule Indications: Diabetic polyneuropathy associated with type 2 diabetes mellitus (CMS/HCC) , Neuritis Take 3 mg by mouth in the morning and 3 mg before bedtime. 180 capsule 3 10/09/2024 01/07/2025 Active lamoTRIgine 200 mg oral tablet (20 sources) Mood Stabil izer, Anti-e pilept ic Agent Start: 12-21-2023 take 200 mg by mouth once daily for depression 200 mg, oral, Daily, First dose on Joaquina 12/21/23 at 0900, Look-alike/sound-alike medication - verify indication for use., Indications: depression associated with bipolar disorder Start: 08-22-2023 End: 08-21-2024 take 1 tablet by mouth at bedtime lamoTRIgine (LaMICtal) 200 MG tablet Indications: Mild episode of recurrent major depressive disorder Take 1 tablet (200 mg) by mouth at bedtime 90 tablet 3 08/22/2024 Active lanolin 1000 mg/ml topical cream (20 sources) Start: 09-27-2023 lanolin (Lansinoh) cream Indications: Nipple pain Apply topically if needed for dry skin 7 g 09/27/2023 Active lidocaine 0.05 mg/mg medicated patch (4 sources) Antiarrhythmic, Amide Local Anesthetic Start: 07-24-2024 apply 1 dose transdermal route every twelve hours in the morning lidocaine (LIDODERM) 5 % Place 1 patch on the skin in the morning. Remove & Discard patch within 12 hours or as directed by MD. 30 patch 07/24/2024 Active lisinopril 2.5 mg oral tablet (20 sources) Angiotensin Converting Enzyme Inhibitor Start: 01-10-2025 take 1 tablet by mouth once daily lisinopril 2.5 MG tablet Indications: Chronic heart failure with preserved ejection fraction (HFpEF) (HCC) TAKE 1 TABLET BY MOUTH DAILY 30 tablet 01/10/2025 Active Start: 07-13-2023 End: 08-06-2024 take 1 tablet by mouth once daily lisinopril 2.5 MG tablet Indications: Chronic heart failure with preserved ejection fraction (HFpEF) (HCC) TAKE 1 TABLET BY MOUTH DAILY 30 tablet 01/10/2025 Active loperamide hydrochloride 2 mg oral capsule (1 source) Opioid Agonist Start: 10-01-2021 loperamide (IMODIUM) capsule 2 mg LORazepam 1 mg oral tablet (20 sources) Benzodiazepine Start: 07-08-2024 End: 03-12-2025 take 1 tablet by mouth three times daily as needed for anxiety LORazepam (Ativan) 1 MG tablet Indications: JOHN (generalized anxiety disorder) Take 1 tablet (1 mg) by mouth 3 (three) times a day as needed for anxiety 90 tablet 02/10/2025 Active Start: 04-19-2024 End: 05-16-2024 take 1 tablet by mouth three times daily as needed for anxiety LORazepam (Ativan) 1 MG tablet Indications: Anxiety state (CMS/HCC) TAKE 1 TABLET BY MOUTH 3 TIMES DAILY NEEDED FOR ANXIETY 90 tablet 05/16/2024 Active Start: 09-20-2023 take 1 tablet by raegan th three times daily as needed LORazepam (Ativan) 1 MG tablet Indications: Anxiety state (CMS/HCC) TAKE 1 TABLET BY MOUTH 3 TIMES DAILY NEEDED 90 tablet 1 09/20/2023 Active 50 ml magnesium sulfate 40 mg/ml injection (3 sources) Start: 12-20-2023 2,000 mg, intr avenous, at 25 mL/hr, Administer over 120 Minutes, As needed, Magnesium level 1.7 to 1.9 mg/dL, or Ionized Magnesium level 0.45 to 0.5 mmol/L., Starting on Mon12/20/23 at 2217, Recheck magnesium level 4 hours after infusion complete. With each magnesium result continue the replacement orders as needed. Start: 12-20-2023 4,000 mg, intr avenous, at 25 mL/hr, Administer over 240 Minutes, As needed, Magnesium level 1.6 mg/dL or less, or Ionized Magnesium level 0.44 mmol/L or less, Starting on Mon12/20/23 at 2217, Recheck magnesium level 4 hours after infusion complete. With each magnesium result continue the replacement orders as needed. Start: 09-28-2021 magnesium sulf ate 1000 mg in dextrose 5% 100 mL IVPB metoprolol tartrate 50 mg oral tablet (20 sources) beta-Adrenergic Flory Start: 07-31-2023 metoprolol tartrate (Lopressor) 50 MG tablet 07/31/2023 Active MOUNJARO 2.5 mg/0.5 mL pen injector (20 sources) Start: 10-07-2024 End: 12-24-2024 inject 5 mg by subcutaneous injection every week MOUNJARO 2.5 mg/0.5 mL pen injector Indications: Type 2 diabetes mellitus with hyperglycemia, with long-term current use of insulin ([facility] [place]) Inject 5 mg under the skin once a week for 12 doses. 0.5 mL 3 10/07/2024 12/24/2024 Active End: 10-07-2024 inject 2.5 mg by subcutaneous injection every week MOUNJARO 2.5 mg/0.5 mL pen injector Inject 2.5 mg under the skin once a week. Monday10/07/2024 Discontinued (Reorder) inject 2.5 mg by sub cutaneous injection every week MOUNJARO 2.5 mg/0.5 mL pen injector Inject 2.5 mg under the skin once a week. Monday Active inject 2.5 mg by sub cutaneous injection every week MOUNJARO 2.5 mg/0.5 mL pen injector Inject 2.5 mg under the skin once a week. Active MOUNJARO 2.5 mg/ 0.5 mL pen injector inject 2 & 1/2 milligrams subcutaneously ONCE EVERY WEEK Active nabumetone 500 mg oral tablet (20 sources) Nonsteroidal Anti-inflammatory Drug Start: 12-30-2024 take 1 tablet by mouth twice daily as needed for pain nabumetone (Relafen) 500 MG tablet Indications: Carpal tunnel syndrome of left wrist Take 1 tablet (500 mg) by mouth 2 (two) times a day as needed for moderate pain 60 tablet 2 12/30/2024 Active Start: 09-05-2023 End: 08-15-2024 take 1 tablet by mouth twice daily as needed for pain nabumetone (Relafen) 500 MG tablet Indications: Carpal tunnel syndrome of left wrist Take 1 tablet (500 mg) by mouth 2 (two) times a day as needed for moderate pain 60 tablet 2 12/30/2024 Active End: 10-02-2021 take 1 tablet by mouth twice daily nabumetone (RELAFEN) 500 MG tablet Take 500 mg by mouth 2 times daily 0 10/02/2021 Discontinued (Stop Taking at Discharge) naproxen 500 mg oral tablet (20 sources) Nonsteroidal Anti-inflammatory Drug Start: 06-29-2024 take [...] 0 10/02/2021 Discontinued (Stop Taking at Discharge) ofloxacin 3 mg/ml ophthalmic solution (19 sources) Quinolone Antimicrobial Start: 03-06-2025 ofloxacin (Ocuflox) 0.3 % ophthalmic solution INSTILL 1 DROP INTO AFFECTED EYE X4/DAY DIRECTED START 3DAYS PRIOR TO SX,THEN IMMEDIATELY FOLLOWING SX EVERY HOUR W/A,THEN X4/DAY NEXT DAY TIL APPT *04/14* 03/06/2025 Active ondansetron 4 mg oral tablet (20 sources) Serotonin-3 Receptor Antagonist Start: 04-14-2025 take 1 tablet by mouth every six hours as needed for nausea and vomiting and nausea and nausea ondansetron (Zofran) 4 MG tablet Indications: Nausea Take 1 tablet (4 mg) by mouth every 6 (six) hours if needed for nausea or vomiting for up to 30 doses Take 1 tablet by mouth every 6 hours as needed for nausea. 30 tablet 1 04/14/2025 Active Start: 10-27-2024 take 1 tablet by raegan th every eight hours as needed for nausea ondansetron ODT (ZOFRAN ODT) 4 mg disintegrating tablet Dissolve 1 tablet (4 mg total) on tongue every 8 (eight) hours as needed for nausea for up to 10 doses. 10 tablet 10/27/2024 Active Start: 10-15-2024 ondansetron OD T (Zofran-ODT) 4 MG disintegrating tablet Indications: Nausea PLACE 1 TABLET ON TONGUE AND ALLOW TO DISSOLVE EVERY 6 HOURS NEEDED FOR NAUSEA OR VOMITING 30 tablet 10 10/15/2024 Active Start: 03-19-2024 End: 04-24-2024 take 1 tablet by mouth every six hours as needed for nausea and vomiting and nausea and nausea ondansetron ODT (Zofran-ODT) 4 MG disintegrating tablet Indications: Nausea Take 1 tablet (4 mg) by mouth every 6 (six) hours if needed for nausea or vomiting 30 tablet 2 03/19/2024 04/24/2024 Start: 12-20-2023 take 4 mg intravenou sly every six hours as needed for nausea and vomiting 4 mg, intravenous, Every 6 hours PRN, nausea, vomiting, Starting on Mon12/20/23 at 2211, Administer over 2-5 minutes. Start: 09-28-2021 ondansetron (Z OFRAN) injection 4 mg 24 hr oxybutynin chloride 15 mg extended release oral tablet (20 sources) Cholinergic Muscarinic Antagonist Start: 06-19-2023 take 1 tablet by mouth once daily oxybutynin XL (Ditropan-XL) 15 MG 24 hr tablet Take 15 mg by mouth Daily 06/19/2023 Active Start: 06-19-2023 End: 12-20-2023 take 1 tablet by mouth every twenty-four hours in the morning oxybutynin XL (Ditropan-XL) 15 MG 24 hr tablet Take 15 mg by mouth in the morning. 06/19/2023 Active pantoprazole 40 mg delayed release oral tablet (20 sources) Proton Pump Inhibitor Start: 07-18-2023 End: 08-06-2024 take 1 tablet by mouth once daily pantoprazole (ProtoNix) 40 MG EC tablet Indications: Gastroesophageal reflux disease without esophagitis Take 1 tablet by mouth once daily 30 tablet 5 08/06/2024 Active pioglitazone 45 mg oral tablet (20 sources) Peroxisome Proliferator Receptor alpha Agonist, Peroxisome Proliferator Receptor gamma Agonist, Thiazolidinedione Start: 12-21-2023 45 mg, oral, Daily, First dose on Joaquina 12/21/23 at 0900, Hold dose and notify prescriber if blood glucose is less than 100 mg/dL or patient status has changed to NPO. Look-alike/sound-ali ke medication - verify indication for use. Start: 06-19-2023 End: 07-22-2025 pioglitazone (Actos) 45 MG t ablet 02/24/2025 Active polyethylene glycol 3350 56500 mg powder for oral solution (1 source) Osmotic Laxative Start: 09-28-2021 polyethylene glycol (GLYCOLAX) packet 17 g Potassium Chloride (3 sources) Start: 12-20-2023 potassium chlo ride (K-TAB,KLOR-CON) CR tablet 30-50 mEq Start: 09-30-2021 potassium chlo ride (KLOR-CON M) extended release tablet 40 mEq Start: 09-28-2021 End: 09-29-2021 potassium chloride 10 mEq/10 0 mL IVPB (Peripheral Line) prazosin 1 mg oral capsule (20 sources) alpha-Adrenergic Flory Start: 12-21-2023 take 2 mg by mouth once daily 2 mg, oral, Nightly, First dose on Joaquina 12/21/23 at 2200 Start: 06-19-2023 prazosin (Mini press) 2 MG capsule 06/19/2023 Active prednisoLONE acetate 10 mg/ml ophthalmic suspension (19 sources) Corticosteroid Start: 03-06-2025 prednisoLONE acetate (Pred-Forte) 1 % ophthalmic suspension INSTILL 1 DROP IN AFFECTED EYE EVERY HOUR WHILE AWAKE AFTER SURGERY THEN NEXT DAY 4 TIMES DAILY UNTIL APPOINTMENT *EFFECTIVE 04/14* 03/06/2025 Active SEMGLEE,INSULIN GLARG-YFGN,PEN 100 unit/mL (3 mL) insulin pen (9 sources) Start: 06-10-2024 SEMGLEE,INSULIN GLARG-YFGN,PEN 100 unit/mL (3 mL) insulin pen Inject into the appropriate muscle. 06/10/2024 Active sod sulf-pot chloride-mag sulf 1.479-0.188- 0.225 gram tablet (1 source) Start: 08-21-2024 sod sulf-pot chloride-mag sulf 1.479-0.188- 0.225 gram tablet Indications: Encounter for screening colonoscopy Please see instructional sheet given by physicians office. 24 tablet 08/21/2024 Active 1000 ml sodium chloride 9 mg/ml injection (6 sources) Start: 12-20-2023 take 100 mL intravenously every hour 100 mL/hr, intravenous, Continuous, Starting on Mon12/20/23 at 2215 Start: 12-20-2023 take 20 mL intraveno usly every hour as needed 20 mL/hr, intravenous, Continuous PRN, to maintain patency of lines, Starting on Mon12/20/23 at 2211 Start: 12-20-2023 take 25 mL intraveno usly every hour as needed 25 mL, intravenous, at 100 mL/hr, Administer over 15 Minutes, As needed, line care, line care after IVPB administration, Starting on Mon12/20/23 at 2211 Start: 12-20-2023 End: 12-20-2023 1,000 mL, intravenous, at 98 4 mL/hr, Administer over 61 Minutes, Once, On Mon12/20/23 at 1800, For 1 dose Start: 12-20-2023 3 mL, intraven ous, As needed, line care, before and after each intermittent use, Starting on Mon12/20/23 at 1556 Start: 09-29-2021 End: 09-30-2021 0.9 % sodium chloride infusi on sodium phosphate 10 mmol in dextrose 5 % 250 mL IVPB (1 source) Start: 09-28-2021 sodium phospha te 10 mmol in dextrose 5 % 250 mL IVPB SUMAtriptan 25 mg oral tablet (20 sources) Serotonin-1b and Serotonin-1d Receptor Agonist Start: 02-04-2025 SUMAtriptan (Imitrex ) 25 MG tablet Indications: Migraine without aura and without status migrainosus, not intractable TAKE 1 TABLET BY MOUTH NEEDED 9 tablet 11 02/04/2025 Active Start: 03-18-2024 SUMAtriptan (I mitrex) 25 MG tablet Indications: Migraine without aura and without status migrainosus, not intractable (CMS/HCC) TAKE 1 TABLET BY MOUTH NEEDED 9 tablet 10 03/18/2024 Active Start: 06-19-2023 SUMAtriptan (I mitrex) 25 MG tablet Take 25 mg by mouth if needed. 0 06/19/2023 Active Tirzepatide (Mounjaro) 2.5 MG/0.5ML solution pen-injector (20 sources) Start: 05-16-2024 End: 08-06-2024 inject 2.5 [...] ONCE WEEKLY 2 mL 5 05/16/2024 Active Start: 01-09-2024 End: 05-13-2024 inject 2.5 mg by subcutaneous injection every week Tirzepatide (Mounjaro) 2.5 MG/0.5ML solution pen-injector Indications: Type 2 diabetes mellitus with microalbuminuria, with long-term current use of insulin (CMS/HCC) Inject 2.5 mg under the skin 1 (one) time per week 2 mL 3 01/09/2024 05/13/2024 Discontinued Start: 01-09-2024 inject 2.5 mg by sub cutaneous injection every week Tirzepatide (Mounjaro) 2.5 MG/0.5ML solution pen-injector Indications: Type 2 diabetes mellitus with microalbuminuria, with long-term current use of insulin (CMS/HCC) Inject 2.5 mg under the skin 1 (one) time per week 2 mL 3 01/09/2024 Active tirzepatide (MOUNJARO) 5 mg/0.5 mL pen injector (12 sources) Start: 10-07-2024 tirzepatide (M OUNJARO) 5 mg/0.5 mL pen injector Indications: Type 2 diabetes mellitus with hyperglycemia, with long-term current use of insulin (CMS-HCC) Inject 5 mg under the skin every 7 days. 6 mL 3 10/07/2024 Active Tirzepatide (Mounjaro) 5 MG/0.5ML solution pen-injector (20 sources) Start: 05-13-2024 End: 08-06-2024 inject 5 [...] per week 2 mL 5 05/13/2024 Active Start: 05-13-2024 End: 05-13-2024 inject 5 mg by subcutaneous injection every week Tirzepatide (Mounjaro) 5 MG/0.5ML solution pen-injector Indications: Type 2 diabetes mellitus with hyperglycemia, with long-term current use of insulin (CMS/HCC) Inject 5 mg under the skin 1 (one) time per week 2 mL 5 05/13/2024 05/13/2024 Discontinued (Reorder) topiramate 25 mg oral capsule (20 sources) take 1 capsule by mouth in [...] each day at the same time Active TRELEGY ELLIPTA 200-62.5-25 mcg blister with device (19 sources) Start: take 1 puff(s) by inhalation in the morning TRELEGY ELLIPTA 200-62.5-25 mcg blister with device Inhale 1 puff in the morning. 60 each 03/24/2025 Active Start: 02-17-2025 End: 03-24-2025 take 1 puff(s) by inhalation in the morning TRELEGY ELLIPTA 200-62.5-25 mcg blister with device Inhale 1 puff in the morning. 60 each 02/17/2025 03/24/2025 Discontinued (Reorder) Start: 02-17-2025 take 1 puff(s) by in halation in the morning TRELEGY ELLIPTA 200-62.5-25 mcg blister with device Inhale 1 puff in the morning. 60 each 02/17/2025 Active Start: 02-17-2025 End: 02-17-2025 take 1 puff(s) by inhalation in the morning TRELEGY ELLIPTA 200-62.5-25 mcg blister with device Inhale 1 puff in the morning. 60 each 02/17/2025 02/17/2025 Discontinued Start: 08-14-2024 End: 02-17-2025 take 1 puff(s) by inhalation in the morning TRELEGY ELLIPTA 200-62.5-25 mcg blister with device Inhale 1 puff in the morning. 08/14/2024 02/17/2025 Discontinued (Reorder) Start: 08-14-2024 take 1 puff(s) by in halation in the morning TRELEGY ELLIPTA 200-62.5-25 mcg blister with device Inhale 1 puff in the morning. 08/14/2024 Active Trelegy Ellipta 200-62.5-25 MCG/ACT aerosol powder (20 sources) Start: 03-21-2024 take 1 puff(s) by inhalation in the morning Trelegy Ellipta 200-62.5-25 MCG/ACT aerosol powder Inhale 1 puff in the morning. 03/21/2024 Active TRULICITY 4.5 mg/0.5 mL pen injector (17 sources) Start: 11-25-2023 inject 4.5 mg by [...] every six hours as needed for pain acetaminophen-codei ne (TYLENOL #3) 300-30 MG per tablet Take [...] mg IVPB in 50 mL D5W minibag Continuous Blood Gluc Sensor (FreeStyle Crystal 14 Day Sensor) [facility] (20 sources) Start: 11-02-2023 End: 09-19-2024 Continuous Blood Gluc Sensor (FreeStyle Crystal 14 Day Sensor) [facility] [place] Indications: Type 2 diabetes mellitus with microalbuminuria, with long-term current use of insulin ([facility]) apply 1 SENSOR to back OF UPPER ARM REMOVE AND REPLACE every 14 d... (REFER TO PRESCRIPTION NOTES). 2 each 11/02/2023 09/19/2024 Discontinued (Reorder) Start: 11-02-2023 Continuous Blo od Gluc Sensor (FreeStyle Crystal 14 Day Sensor) [facility] [place] Indications: Type 2 diabetes mellitus with microalbuminuria, with long-term current use of insulin (CMS/HCC) apply 1 SENSOR to back OF UPPER ARM REMOVE AND REPLACE every 14 d... (REFER TO PRESCRIPTION NOTES). 2 each 11/02/2023 Active Start: 02-09-2023 Continuous Blo od Gluc Sensor (FreeStyle Crystal 14 Day Sensor) [facility] apply 1 SENSOR to back OF UPPER ARM REMOVE AND REPLACE every 14 d... (REFER TO PRESCRIPTION NOTES). 0 02/09/2023 Active glipiZIDE 10 mg oral tablet (1 source) [...] sodium chloride 0.9 % 100 mL infusion insulin, regular, human 100 unt/ml injectable solution (2 sources) Insulin Start: 12-20-2023 End: 12-20-2023 10 Units, subcutaneous, Once, On Mon12/20/23 at 1930, For 1 dose, Look-alike/sound-ali ke medication - verify indication for use. Prandial/supplementa l insulin. Stable for 28 days at room temperature. Start: 12-20-2023 End: 12-20-2023 15 Units, subcutaneous, Once , On Mon12/20/23 at 1800, For 1 dose, Look-alike/sound-alike medication - verify indication for use. Prandial/supplemental insulin. Stable for 28 days at room temperature. iohexol (OMNIPAQUE 240) injection 50 mL (1 source) Start: 10-01-2021 End: 10-01-2021 iohexol (OMNIPAQUE 240) injection 50 mL potassium phosphate 30 mmol in dextrose 5 % 250 mL IVPB (1 source) Start: 10-01-2021 End: 10-01-2021 potassium phosphate 30 mmol in dextrose 5 % 250 mL IVPB sertraline 100 mg oral tablet (20 sources) Serotonin Reuptake Inhibitor Start: 01-22-2024 End: 02-10-2025 take 2 tablets by mouth once daily sertraline (Zoloft) 100 MG tablet Indications: JOHN (generalized anxiety disorder) (CMS/HCC) Take 2 tablets (200 mg) by mouth Daily 60 tablet 11 01/22/2024 02/10/2025 Discontinued Start: 12-21-2023 take 100 mg by mouth once daily 100 mg, oral, Daily, First dose on Joaquina 12/21/23 at 0900, Look-alike/sound-alike medication - verify indication for use. take 1 tablet by raegan th in the morning sertraline (ZOLOFT) 100 mg tablet Take 1 tablet (100 mg total) by mouth in the morning. Active take 2 tablets by mo uth in the morning sertraline (Zoloft) 100 MG tablet Take 200 mg by mouth in the morning. 0 Active sodium bicarbonate 100 mEq in dextrose 5 % 1,000 mL infusion (1 source) Start: 09-30-2021 End: 10-02-2021 sodium bicarbonate 100 mEq in dextrose 5 % 1,000 mL infusion Tirzepatide (Mounjaro) 2.5 MG/0.5ML solution auto-injector (11 sources) Start: 02-11-2025 End: 03-05-2025 inject 2.5 mg by subcutaneous injection every week Tirzepatide (Mounjaro) 2.5 MG/0.5ML solution auto-injector Indications: Type 2 diabetes mellitus with hyperglycemia, with long-term current use of insulin (HCC) Inject 2.5 mg under the skin 1 (one) time per week 2 mL 02/11/2025 03/05/2025 Discontinued Start: 02-11-2025 inject 2.5 mg by sub cutaneous injection every week Tirzepatide (Mounjaro) 2.5 MG/0.5ML solution auto-injector Indications: Type 2 diabetes mellitus with hyperglycemia, with long-term current use of insulin (HCC) Inject 2.5 mg under the skin 1 (one) time per week 2 mL 5 02/11/2025 Active Start: 02-10-2025 inject 2.5 mg by sub cutaneous injection every week Tirzepatide (Mounjaro) 2.5 MG/0.5ML solution auto-injector Indications: Type 2 diabetes mellitus with hyperglycemia, with long-term current use of insulin ([facility]/HCC) Inject 2.5 mg under the skin 1 (one) time per week 2 mL 5 02/10/2025 Active End: 03-05-2025 Tirzepatide (Mounjaro) 2.5 MG/0.5ML solution auto-injector Inject under the skin 03/05/2025 Discontinued Tirzepatide (Raegan njaro) 2.5 MG/0.5ML solution auto-injector Inject under the skin Active Tirzepatide (Mounjaro) 7.5 MG/0.5ML solution auto-injector (16 sources) Start: 08-06-2024 End: 10-28-2024 inject 7.5 mg by subcutaneous injection every week Tirzepatide (Mounjaro) 7.5 MG/0.5ML solution auto-injector Indications: Type 2 diabetes mellitus with hyperglycemia, with long-term current use of insulin (CMS/HCC) Inject 7.5 mg under the skin 1 (one) time per week 2 mL 5 08/06/2024 10/28/2024 Discontinued Start: 08-06-2024 inject 7.5 mg by sub cutaneous injection every week Tirzepatide (Mounjaro) 7.5 MG/0.5ML solution auto-injector Indications: Type 2 diabetes mellitus with hyperglycemia, with long-term current use of insulin (CMS/HCC) Inject 7.5 mg under the skin 1 (one) time per week 2 mL 5 08/06/2024 Active Problems Active Problems Problem Classification Problem Date Documented Da te Episodic/Chronic Abdominal pain (6 sources) Unspecified abdominal pain; Translations: [Pain in female pelvis] Onset: 3 Episodic Anxiety disorders (20 sources) Anxiety disorder, unspecified; Translations: [Anxiety state] Onset: 0 04-06-2023 Chronic Asthma (20 sources) Moderate persistent asthma, uncomplicated; Translations: [Uncomplicated moderate persistent asthma] Onset: 4 04-03-2024 Chronic Chronic obstructive pulmonary disease and bronchiectasis (20 sources) Acute exacerbation of chronic obstructive airways disease; Translations: [Chronic obstructive pulmonary disease with (acute) exacerbation] Onset: 4 Resolved: 5 07-22-2024 Chronic Congestive heart failure; nonhypertensive (20 sources) Chronic heart failure co-occurrent with normal [...] disease without esophagitis] Onset: 3 04-06-2023 Chronic Essential hypertension (20 sources) Hypertensive disorder; Translations: [Essential (primary) hypertension] Onset: 4 01-01-2025 Chronic Headache; including migraine (20 sources) Migraine without aura, not refractory ; Translations: [Migraine without aura, not intractable, without status migrainosus] Onset: 3 04-06-2023 Chronic Immunity disorders (2 sources) Secondary immune deficiency disorder; Translations: [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 elsewhere ([facility])] 05-13-2024 Chronic Joint disorders and dislocations; trauma-related (4 sources) Derangement of left knee; Translations: [Unspecified internal derangement of left knee] 02-25-2025 Chronic Joint disorders and dislocations; trauma-related (2 sources) Acute tear of medial meniscus of left knee; Translations: [Other tear of medial meniscus, current injury, left knee, initial encounter] 03-23-2025 Episodic Menopausal disorders (20 sources) Menopausal and female [...] 04-06-2023 Chronic Other aftercare (1 source) 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; Translations: [OTH HALF-WAY CURRENT DRUG THERAPY] Onset: 3 Episodic Other aftercare (20 sources) Long-term current use of drug therapy; Translations: [Other nursing home (current) drug therapy] Onset: 5 02-10-2025 Episodic Other connective tissue disease (2 sources) Inflammatory neuropathy ; Translations: [Neuralgia and neuritis, unspecified] 10-09-2024 Episodic Other diseases of bladder and urethra [...] IN [facility]] Onset: 3 Episodic Other lower respiratory disease (1 source) Hypoxemia; Translations: [Hypoxemia] Onset: 4 Episodic Other lower respiratory disease (2 sources) Cough Onset: 4 Episodic Other lower respiratory disease (3 sources) Shortness of breath Onset: 4 Episodic Other lower respiratory disease (2 sources) Wheezing Onset: 4 Episodic Other nervous system disorders (20 sources) Chronic pain; Translations: [Other chronic pain] Onset: 3 Resolved: 3 08-10-2023 Chronic Other nervous system disorders (20 sources) Carpal tunnel syndrome of right wrist; [...] 3 04-06-2023 Chronic Other non-traumatic joint disorders (2 sources) Pain of right wrist; Translations: [Pain in right wrist] 05-30-2024 Episodic Other nutritional; endocrine; and metabolic disorders (20 sources) Morbid obesity; Translations: [Morbid (severe) obesity due to excess calories] Onset: 3 04-06-2023 Chronic Other nutritional; endocrine; and metabolic disorders (3 sources) Morbid (severe) obesity due to excess calories; Translations: [Morbid (severe) obesity due to excess calories] Onset: 4 Chronic Other nutritional; endocrine; and metabolic disorders (20 sources) Alveolar hypoventilation; Translations: [Morbid (severe) obesity with alveolar hypoventilation] Onset: 4 01-04-2024 Chronic Other nutritional; endocrine; and metabolic disorders (20 sources) Body mass index 40+ - severely obese; Translations: [Body mass index (BMI) 45.0-49.9, adult] Onset: 3 Resolved: 4 06-20-2024 Chronic Other nutritional; endocrine; and metabolic disorders (20 sources) Severe obesity; Translations: [Class 3 severe obesity due to excess calories with serious comorbidity and body mass index (BMI) of 40.0 to 44.9 in adult] Onset: 3 08-06-2024 Chronic Other upper respiratory disease (20 sources) Allergic rhinitis; Translations: [Allergic rhinitis, unspecified] Onset: 0 04-06-2023 Chronic Pulmonary heart disease (20 sources) Pulmonary hypertension; Translations: [Pulmonary hypertension, unspecified] Onset: 4 07-04-2024 Chronic Residual codes; unclassified (4 sources) Obstructive sleep apnea (adult) (pediatric); Translations: [OBSTRUCTIVE SLEEP APNEA] Onset: 3 Chronic Residual codes; unclassified (20 sources) Obstructive sleep apnea syndrome; Translations: [Obstructive sleep apnea (adult) (pediatric)] Onset: 0 04-06-2023 Chronic Residual codes; unclassified (1 source) Sleep apnea Onset: 4 Chronic Residual codes; unclassified (2 sources) Pain; Translations: [Pain] Onset: 3 Episodic Residual codes; unclassified (1 source) Unable to comply with treatment; Translations: [Noncompliance with CPAP treatment] 12-06-2024 Episodic Respiratory failure; insufficiency; arrest (adult) (20 sources) Chronic respiratory failure with hypoxia; Translations: [Chronic hypoxemic respiratory failure] Onset: 4 Resolved: 5 04-03-2024 Chronic Spondylosis; intervertebral disc disorders; other back problems (20 sources) Spondylosis without myelopathy; Translations: [Spondylosis without myelopathy or radiculopathy, site unspecified] Onset: 0 04-06-2023 Chronic Unclassified (2 sources) Post-op; Translations: [Post-op] Onset: 3 Unclassified (3 sources) Patient encounter status; Translations: [Colon Cancer Screening] Onset: 4 08-06-2024 Unclassified (1 source) EMS Onset: 4 Unclassified (2 sources) Acute pain of left knee 03-21-2025 Past or Other Problems Problem Classification Problem Date Documented Da te Episodic/Chronic Acquired foot deformities (20 sources) Plantarflexion deformity of left foot; Translations: [Other acquired deformities of left foot] Onset: 04-06-2023 04-06-2023 Episodic Acute and unspecified renal failure (20 sources) Acute renal impairment; Translations: [Acute kidney failure with tubular necrosis] Onset: 09-30-2021 Resolved: 08-10-2023 Episodic Administrative/social admission (2 sources) Follow-up status; Translations: [Person consulting for explanation of examination or test findings] 04-24-2024 Episodic Conditions associated with dizziness or vertigo (1 source) Dizziness and giddiness; Translations: [Dizziness and giddiness] Onset: 10-27-2024 Episodic Coronary atherosclerosis and other heart disease (20 sources) Preinfarction syndrome; Translations: [Unstable angina] Onset: 06-05-2023 Resolved: 07-13-2023 07-13-2023 Chronic Developmental disorders (20 sources) Developmental delay; Translations: [Developmental disorder of scholastic skills, unspecified] Onset: 09-30-2009 Resolved: 08-10-2023 Chronic Diabetes mellitus without complication (20 sources) Type 2 diabetes mellitus; Translations: [Type 2 diabetes mellitus without complications] Onset: 09-30-2009 Resolved: 08-10-2023 08-10-2023 Chronic Diabetes mellitus without complication (20 sources) Hyperglycemia; Translations: [Hyperglycemia, unspecified] Onset: 03-01-2019 Resolved: 08-10-2023 08-10-2023 Episodic Fluid and electrolyte disorders (20 sources) Metabolic acidosis, increased anion gap (IAG); Translations: [Acidosis] Onset: 09-30-2021 Resolved: 08-10-2023 Episodic Immunizations and screening for infectious disease (1 source) Encounter for screening for human papillomavirus (HPV); Translations: [ENC SCREENING HUMAN PAPILLOMAVIRUS] Onset: 07-18-2022 Episodic Lymphadenitis (20 sources) Lymphadenopathy; Translations: [Localized enlarged lymph nodes] Onset: 11-09-2023 11-09-2023 Episodic Menstrual disorders (20 sources) Irregular menstruation, unspecified; Translations: [Missed period] Onset: 09-16-2022 Resolved: 08-10-2023 08-10-2023 Chronic Mood disorders (20 sources) Mood disorders Onset: 06-05-2023 06-05-2023 Nausea and vomiting (20 sources) Nausea and vomiting; Translations: [Nausea with vomiting, unspecified] Onset: 10-27-2024 10-28-2024 Episodic Nonspecific chest pain (20 sources) Chest pain; Translations: [Other chest pain] Onset: 06-04-2023 Resolved: 11-02-2023 08-10-2023 Episodic Other aftercare (2 sources) 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 (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 insulin; Translations: [COMPUTATIONAL MATHEMATICIAN CURRENT USE OF INSULIN] Onset: 01-12-2023 Episodic Other and unspecified benign neoplasm (1 source) Polyp of colon; Translations: [Polyp of colon] Onset: 09-12-2024 Episodic Other circulatory disease (20 sources) Elevated blood-pressure reading without diagnosis of hypertension; Translations: [Elevated blood-pressure reading, without diagnosis of hypertension] Onset: 01-04-2024 01-04-2024 Episodic Other gastrointestinal disorders (20 sources) Incontinence of feces; Translations: [Full incontinence of feces] Onset: 06-22-2016 Resolved: 08-10-2023 08-10-2023 Episodic Other lower respiratory disease (20 sources) Cavitation of lung; Translations: [Other disorders of lung] Onset: 08-10-2023 Resolved: 05-13-2024 08-10-2023 Episodic Other lower respiratory disease (2 sources) Solitary pulmonary nodule; Translations: [Solitary pulmonary nodule] Onset: 02-08-2024 Episodic Other lower respiratory disease (2 sources) Other forms of dyspnea; Translations: [Other forms of dyspnea] Onset: 02-08-2024 Episodic Other lower respiratory disease (1 source) Other disorders of lung; Translations: [Other disorders of lung] Onset: 11-09-2023 Episodic Other lower respiratory disease (20 sources) Hypoxia; Translations: [Hypoxemia] Onset: 01-04-2024 Resolved: 11-07-2024 01-04-2024 Episodic Other lower respiratory disease (20 sources) Nodule of lung; Translations: [Solitary pulmonary nodule] Onset: 02-08-2024 02-08-2024 Episodic Other lower respiratory disease (20 sources) Dyspnea on exertion; Translations: [Other forms of dyspnea] Onset: 02-08-2024 02-08-2024 Episodic Other lower respiratory disease (2 sources) Dyspnea; Translations: [Shortness of breath] 05-07-2024 Episodic Other lower respiratory disease (1 source) Shortness of breath; Translations: [Shortness of breath] Onset: 02-13-2024 Episodic Other nervous system disorders (20 sources) [...] Episodic Other non-traumatic joint disorders (20 sources) Pain in right knee; Translations: [Pain in joint, lower leg] Onset: 05-16-2024 Resolved: 08-06-2024 05-29-2024 Episodic Other non-traumatic joint disorders (1 source) Knee pain Onset: 05-16-2024 Episodic Other nutritional; endocrine; and metabolic disorders (20 sources) Developmental delay; Translations: [Unspecified lack of expected normal physiological development in childhood] Onset: 09-29-2021 08-10-2023 Episodic Other conditions (20 sources) Convulsions in the ; Translations: [Convulsions of ] Onset: 09-30-2009 Resolved: 08-10-2023 08-10-2023 Episodic Other screening for suspected conditions (not mental disorders or infectious disease) (20 sources) Encounter for screening for malignant neoplasm of cervix; Translations: [Encounter for screening mammogram for malignant neoplasm of breast] Onset: 06-22-2022 Episodic Phlebitis; thrombophlebitis and thromboembolism (1 source) [...] TRACT] Onset: 01-25-2022 Episodic Residual codes; unclassified (20 sources) Edema; Translations: [Edema, unspecified] Onset: 01-02-2012 04-06-2023 Episodic Residual codes; unclassified (2 sources) Edema, generalized; Translations: [Generalized edema] 05-13-2024 Episodic Residual codes; unclassified (1 source) Generalized edema; Translations: [Generalized edema] Onset: 05-14-2024 Episodic Urinary tract infections (20 sources) Acute cystitis; Translations: [Acute cystitis without hematuria] Onset: 12-21-2023 12-21-2023 Episodic Viral infection (20 sources) Genital warts; Translations: [Anogenital (venereal) warts] Onset: 04-06-2023 04-06-2023 Episodic Results Test Name Value Interpretation Reference Range Facil ity MR KNEE LT WO CONon 03-04-[address] [address] Magnetic Resonance Report Signed Patient: CARISSA SANTOS MR#: [id number] : 1980 Acct:[id number] Age/Sex: 44 / F ADM Date: 03/04/25 Loc: MRI Attending Dr: Shama KAPLAN Ordering Physician: Shama Medina Date of Service: 03/04/25 Procedure(s): MR knee LT wo con Accession Number(s): [id number] cc: Shama Medina; Diaz Dalton M.D. [address] [address] Patient Name: CARISSA SANTOS MRN: [id number] date: 1980 Sex: F Assigned Patient Location: MRI Current Patient Location: MRI Accession/Order Number: [id number] Exam Date: 03/04/2025 15:15 Report Date: 03/04/2025 [...] Torres M.D. 03/04/2025 3:29 PM Dictation Location: [place] [address] Electronically authenticated by: [id number] Y Date: 03/04/2025 15:29 Dictated By: Gallito Torres D.O. Signed By: 03/04/25 1532 DD/ 1529 TD/TT: Paper Cup Machine Tender: [facility] Radiology, Radiologist, MD - 03/04/[address] [address] Magnetic Resonance Report Signed Patient: CARISSA SANTOS MR#: [id number] : 1980 Acct:[id number] Age/Sex: 44 / F ADM Date: 03/04/25 Loc: MRI Attending Dr: Shama KAPLAN Ordering Physician: Shama Medina Date of Service: 03/04/25 Procedure(s): MR knee LT wo con Accession Number(s): [id number] cc: Shama Medina; Diaz Dalton M.D. The [address] [address] Patient Name: CARISSA SANTOS MRN: [facility]:[id number] date: 1980 Sex: F Assigned Patient Location: MRI Current Patient Location: MRI Accession/Order Number: [id number] Exam Date: 03/04/2025 15:15 Report Date: 03/04/2025 [...] Torres M.D. 03/04/2025 3:29 PM Dictation Location: [place] [address] Electronically authenticated by: [id number] Y Date: 03/04/2025 15:29 Dictated By: Gallito Torres D.O. Signed By: 03/04/25 1532 DD/ 1529 TD/TT: Paper Cup Machine Tender: [facility] Rad[facility] Study observation (narrative) [facility] [employer] MR KNEE LT WO CONOrdered By: Radiologist Radiology on 03-04-2025 [employer] Work Phone: XR Knee - left 1 or 2 Viewso n 02-25-2025 Image result: AP and Lateral left knee: No acute fracture or dislocation [place] suspected distal femur Symmetric joint space preservation Mild effusion Impression: no acute bony process left knee. [facility] [email or web address] Radiology Study observation (narrative) [facility] [employer] HGB A1C (GLYCO-HGB)on 2024 Glucose [Mass/Vol] 321 mg/dL Normal [facility] Comment on above: Performed By: #### H A1C #### [facility] ([id number]) [address], [address] [place] [address] HbA1c (Bld) [Mass fraction] 12.8 % High 4.4-5.6 [facility] Comment on above: Result Comment: NOTE ADA Guidelines Result HgbA1c Normal : less than 5.7 % Prediabetes : 5.7 % to 6.4 % Diabetes : > 6.4 % Use with caution in patients with abnormal hemoglobin variants as the half-life of red blood cells and in vivo glycation rates are affected. Performed By: #### H A1C #### [facility] ([id number]) [address], [address] [place] [address] HbA1c (Bld) [Mass fraction]o n 11-01-2024 Average glucose Estimated from glycated hemoglobin (Bld) [Mass/Vol] 321 mg/dL [facility] Comment on above: PERFORMED AT [address],[place] [address] Interpretation and review of laboratory results Abnormal [facility] [employer] Hemoglobin A1con 11-01-2024 HbA1c (Bld) [Mass fraction] 12.8 % High 4.4 - 5.6 % [facility] Comment on above: NOTE ADA Guidelines Result HgbA1c Normal : less than 5.7 % Prediabetes : 5.7 % to 6.4 % Diabetes : > 6.4 % Use with caution in patients with abnormal hemoglobin variants as the half-life of red blood cells and in vivo glycation rates are affected. Beta hydroxybutyrate [Moles/ Vol]on 10-27-2024 BetaHydroxybutyrate 1.14 mmol/L High 0.02-0.27 [facility] Comment on above: Performed By: #### H A1C #### [facility] ([id number]) [address], [address] [place] [address] CBC AND AUTO DIFFon 10-27-19 ABSOLUTE BASOPHIL 0.0 X10E9/L Normal 0.0-0.2 [facility] Comment on above: Performed By: #### H A1C #### [facility] ([id number]) [address], [address] [place] [address] ABSOLUTE NEUTROPHIL 3.5 X10E9/L Normal 1.5-6.6 [facility] Comment on above: Performed By: #### H A1C #### [facility] ([id number]) [address], [address] [place] [address] Basophils/100 WBC (Bld) 0.5 % Normal [facility] Comment on above: Performed By: #### H A1C #### [facility] ([id number]) [address], [address] [place] [address] Eosinophils (Bld) [#/Vol] 0.1 10*3/uL Normal 0.0-0.4 [facility] Comment on above: Performed By: #### H A1C #### [facility] ([id number]) [address], [address] [place] [address] Eosinophils/100 WBC (Bld) 0.8 % Normal [facility] Comment on above: Performed By: #### H A1C #### [facility] ([id number]) [address], [address] [place] [address] Erythrocyte distribution width (RBC) [Ratio] 13.8 % Normal 11.5-15.0 [facility] Comment on above: Performed By: #### H A1C #### [facility] ([id number]) [address] [place] [address] Hematocrit (Bld) [Volume fraction] 44.0 % Normal 35-47 [facility] Comment on above: Performed By: #### H A1C #### [facility] ([id number]) [address], [address] [place] [address] Hemoglobin (Bld) [Mass/Vol] 15.1 g/dL Normal 11.7-15.5 [facility] Comment on above: Performed By: #### H A1C #### [facility] ([id number]) [address], [address] [place] [address] Lymphocytes (Bld) [#/Vol] 2.7 10*3/uL Normal 1.0-3.5 [facility] Comment on above: Performed By: #### H A1C #### [facility] ([id number]) [address], [address] [place] [address] Lymphocytes/100 WBC (Bld) 39.7 % Normal [facility] Comment on above: Performed By: #### H A1C #### [facility] ([id number]) [address], [address] [place] [address] MCH (RBC) [Entitic mass] 28.7 pg Normal 27-34 [facility] Comment on above: Performed By: #### H A1C #### [facility] ([id number]) [address], [address] [place] [address] MCHC (RBC) [Mass/Vol] 34.4 g/dL Normal 32-36 [facility] Comment on above: Performed By: #### H A1C #### [facility] ([id number]) [address], [address] [place] [address] MCV (RBC) [Entitic vol] 84 fL Normal 80-100 [facility] Comment on above: Performed By: #### H A1C #### [facility] ([id number]) [address], [address] [place] [address] Monocytes (Bld) [#/Vol] 0.4 10*3/uL Normal 0-0.9 [facility] Comment on above: Performed By: #### H A1C #### [facility] ([id number]) [address], [address] [place] [address] Monocytes/100 WBC (Bld) 6.5 % Normal [facility] Comment on above: Performed By: #### H A1C #### [facility] ([id number]) [address], [address] [place] [address] Neutrophils/100 WBC (Bld) 52.5 % Normal [facility] Comment on above: Performed By: #### H A1C #### [facility] ([id number]) [address], [address] [place] [address] Platelet mean volume (Bld) [Entitic vol] 7.8 fL Normal 7-12 [facility] Comment on above: Performed By: #### H A1C #### [facility] ([id number]) [address], [address] [place] [address] Platelets (Bld) [#/Vol] 211 10*3/uL Normal 150-450 [facility] Comment on above: Performed By: #### H A1C #### [facility] ([id number]) [address], [address] [place] [address] RBC COUNT 5.26 X10E12/L High 3.80-5.20 [facility] Comment on above: Performed By: #### H A1C #### [facility] ([id number]) [address], [address] [place] [address] WBC (Bld) [#/Vol] 6.7 10*3/uL Normal 4.0-11.0 [facility] Comment on above: Performed By: #### H A1C #### [facility] ([id number]) [address] [facility] [place] [address] COMPREHENSIVE METABOLIC PANE Rodriguez 10-27-2024 Albumin [Mass/Vol] 4.1 g/dL Normal 3.2-5.3 [facility] Comment on above: Performed By: #### H A1C #### [facility] ([id number]) [address] [facility] [place] [address] ALP [Catalytic activity/Vol] 82 U/L Normal 39-130 [facility] Comment on above: Performed By: #### H A1C #### [facility] ([id number]) [address] [facility], [address] [place] [address] ALT [Catalytic activity/Vol] 35 U/L High 0-31 [facility] Comment on above: Performed By: #### H A1C #### [facility] ([id number]) [address] [facility] [place] [address] Anion gap [Moles/Vol] 9 mmol/L Normal 5-15 [facility] Comment on above: Performed By: #### H A1C #### [facility] ([id number]) [address] [facility] [facility] [place] [address] AST [Catalytic activity/Vol] 27 U/L Normal 0-41 [facility] Comment on above: Performed By: #### H A1C #### [facility] ([id number]) [address], [address] [place] [address] Bilirubin [Mass/Vol] 0.4 mg/dL Normal 0.3-1.2 [facility] Comment on above: Performed By: #### H A1C #### [facility] ([id number]) [address], [address] [place] [address] Calcium [Mass/Vol] 9.2 mg/dL Normal 8.5-10.5 [facility] Comment on above: Performed By: #### H A1C #### [facility] ([id number]) [address], [address] [place] [address] Chloride [Moles/Vol] 101 mmol/L Normal 98-109 [facility] Comment on above: Performed By: #### H A1C #### [facility] ([id number]) [address], [address] [place] [address] CO2 [Moles/Vol] 26 mmol/L Normal 22-32 [facility] Comment on above: Performed By: #### H A1C #### [facility] ([id number]) [address], [address] [place] [address] Creatinine [Mass/Vol] 1.06 mg/dL High 0.40-1.00 [facility] Comment on above: Result Comment: METH OD TRACEABLE TO IDMS STANDARD Performed By: #### H A1C #### [facility] ([id number]) [address], [address] [place] [address] GFR/1.73 sq M.predicted among non-blacks MDRD (S/P/Bld) [Vol rate/Area] 66 mL/min/{1.73_m2} Normal >59 [facility] Comment on above: Result Comment: Reported eGFR is based on the CKD-EPI 2020 equation that does not use a race coefficient. Performed By: #### H A1C #### [facility] ([id number]) [address], [address] [place] [address] Glucose [Mass/Vol] 148 mg/dL High 65-99 [facility] Comment on above: Performed By: #### H A1C #### [facility] ([id number]) [address], [address] [place] [address] Potassium [Moles/Vol] 3.6 mmol/L Normal 3.5-5.0 [facility] Comment on above: Performed By: #### H A1C #### [facility] ([id number]) [address], [address] [place] [address] Protein [Mass/Vol] 7.7 g/dL Normal 6.0-8.0 [facility] Comment on above: Performed By: #### H A1C #### [facility] ([id number]) [address], [address] [place] [address] Sodium [Moles/Vol] 136 mmol/L Normal 134-146 [facility] Comment on above: Performed By: #### H A1C #### [facility] ([id number]) [address], [address] [place] [address] Urea nitrogen [Mass/Vol] 28 mg/dL High 5-23 [facility] Comment on above: Performed By: #### H A1C #### [facility] ([id number]) [address], [address] [place] [address] LIPASEon 10-27-2024 Lipase [Catalytic activity/Vol] 24 U/L Normal 17-40 [facility] Comment on above: Performed By: #### H A1C #### [facility] ([id number]) [address], [address] [place] [address] URN MACROSCOPIC NURon 2024 BILIRUBIN SMITHA Negative Normal NEG [facility] Comment on above: Performed By: #### H A1C #### [facility] ([id number]) [address], [address] [place] [address] BLOOD/HGB SMITHA Trace Abnormal NEG [facility] Comment on above: Performed By: #### H A1C #### [facility] ([id number]) [address] [place] [address], [address] [place] [address] GLUCOSE SMITHA >=1000 Abnormal NEG [facility] Comment on above: Performed By: #### H A1C #### [facility] ([id number]) [address] [place] [address], [address] [place] [address] KETONES SMITHA Negative Normal NEG [facility] Comment on above: Performed By: #### H A1C #### [facility] ([id number]) [address] [place] [address], [address] [place] [address] LEUKOCYTE ESTERASE SMITHA Negative Normal NEG [facility] Comment on above: Performed By: #### H A1C #### [facility] ([id number]) [address] [place] [address], [address] [place] [address] NITRITE SMITHA Negative Normal NEG [facility] Comment on above: Performed By: #### H A1C #### [facility] ([id number]) [address] [place] [address], [address] [place] [address] PH SMITHA 5.0 Normal 5.0-8.5 [facility] Comment on above: Performed By: #### H A1C #### [facility] ([id number]) [address] [place] [address], [address] [place] [address] PROTEIN SMITHA Negative Normal NEG [facility] Comment on above: Performed By: #### H A1C #### [facility] ([id number]) [address] [place] [address], [address] [place] [address] SPECIFIC GRAVITY SMITHA 1.010 Normal 1.003-1.035 [facility] Comment on above: Performed By: #### H A1C #### [facility] ([id number]) [address] [place] [address], [address] [place] [address] UROBILINOGEN SMITHA 0.2 eu/dL Normal <1.1 [facility] Comment on above: Performed By: #### H A1C #### [facility] ([id number]) [address], [address] [place] [address] VENOUS BLOOD GASon 5 BIBI'S TEST Normal [facility] Comment on above: Performed By: #### H A1C #### [facility] ([id number]) [address] [address] [place] [address] Base excess Calc (Bld) [Moles/Vol] 2.0 mmol/L Normal 0.0-2.0 [facility] Comment on above: Performed By: #### H A1C #### [facility] ([id number]) [address], [address] [place] [address] Body temperature 98.6 [degF] Normal 37.0 [facility] Comment on above: Performed By: #### H A1C #### [facility] ([id number]) [address] [address] [place] [address] HCO3 (Bld) [Moles/Vol] 27.7 mmol/L High 20.0-24.0 [facility] Comment on above: Performed By: #### H A1C #### [facility] ([id number]) [address] [address] [place] [address] Oxygen saturation in Blood 48.0 % Low >80.0 [facility] Comment on above: Performed By: #### H A1C #### [facility] ([id number]) [address] [address] [place] [address] OXYGEN SOURCE RoomAir Normal [facility] Comment on above: Performed By: #### H A1C #### [facility] ([id number]) [address] [address] [place] [address] PCO2, VENOUS 48.1 MMHG Normal 35-50 [facility] Comment on above: Performed By: #### H A1C #### [facility] ([id number]) [address] [place] [address], [address] [place] [address] PH, VENOUS 7.368 Normal 7.320-7.420 [facility] Comment on above: Performed By: #### H A1C #### [facility] ([id number]) [address] [place] [address], [address] [place] [address] PO2, VENOUS 27 MMHG Low 30-50 [facility] Comment on above: Performed By: #### H A1C #### [facility] ([id number]) [address] [place] [address], [address] [place] [address] SAMPLE SITE N/A Normal [facility] Comment on above: Performed By: #### H A1C #### [facility] ([id number]) [address] [place] [address], [address] [place] [address] SAMPLE TYPE VENOUS Normal [facility] Comment on above: Performed By: #### H A1C #### [facility] ([id number]) [address] [place] [address], [address] [place] [address] Surgical Pathologyon 025 Surgical Pathology Normal [facility] Comment on above: Result Comment: [facility] [address] [place] [address] Surgical Pathology Consultation Patient Name:CARISSA SANTOS:1980 (Age: 44)Gender:FTaken:09/12/2024Reported:09/17/2024Physician(s):Aliya Solorzano D.O. ([phone])Copy To: Rec. #:[id number]: #[id number] Final Pathologic Diagnosis Hepatic flexure polyp, biopsies: Fecal material, nondiagnostic. No colonic tissue present. Report Electronically Signed Out ssi/09/17/2024Taras Lara M.D. Interpretation performed at [facility], [address] [place] [address], License number: [id number]. Clinical History Screening Gross Description Received in formalin labeled ANGELA, hepatic are pale-mims soft tissue fragments admixed with friable bits two material, 0.5 x 0.2 x 0.1 cm in aggregate. The specimen is filtered and entirely submitted in a single cassette. (1, ns, [id number],m4) DM. dm/09/13/2024WAK Specimen(s) Received Hepatic flexure polyp Fee Codes(s): 1; [address]60 IGP,APTIMA HPV,AGE GDLNon AGE GDLN ACOG TESTING Note . [facility] Comment on above: TESTS RESULT FLAG UN ITS REF RANGE LAB Clinician Provided Cytology Information Source.............Cervix;Endocervix No. of containers..01 ThinPrep Vial Age Algo ACOG Keyla... 30-65 01 FLAG LEGEND: L-Low Normal,H-High Normal,LL-Alert Low,HH-Alert High <-Panic Low,>-Panic High,A-Abnormal,AA-Critical Abnormal Performed at: 01 =G [address] [address] Caroline Moore MD, HPV APTIMA Negative Negative [facility] e Comment on above: This nucleic acid am plification test detects fourteen high- risk HPV types (16,18,31,33,35,39,45,51,52,56,58,59,66,68) without differentiation. Performed at: =G - [facility] [id number] Civil Division Commander Deputy Sheriff: Caroline Moore MD, Phone: [phone] Performed at: - [facility] [id number] Civil Division Commander Deputy Sheriff: Caroline Moore MD, Phone: [phone] IGP, APTIMA HPV, RFX 16/18,45 Note . [facility] Comment on above: TESTS RESULT FLAG U NITS REF RANGE LAB DIAGNOSIS: 02 NEGATIVE FOR INTRAEPITHELIAL LESION OR MALIGNANCY. Specimen adequacy: 02 Satisfactory for evaluation. Endocervical and/or squamous metaplastic cells (endocervical component) are present. Performed by: Saud Saravia, Slate Splitter (ASCP) . 02 Note: Note 02 The Pap smear is a screening test designed to aid in the detection of premalignant and malignant conditions of the uterine cervix. It is not a diagnostic procedure and should not be used as the sole means of detecting cervical cancer. Both false-positive and false-negative reports do occur. Test Methodology: Note 02 This liquid based ThinPrep(R) pap test was screened with the use of an image guided system. HPV Genotype Reflex Note 02 Criteria not met, HPV Genotype not performed. FLAG LEGEND: L-Low Normal,H-High Normal,LL-Alert Low,HH-Alert High <-Panic Low,>-Panic High,A-Abnormal,AA-Critical Abnormal Performed at: 02 [facility] [address] [place] [address] Caroline Moore MD, BRUSH-SPATULA CERVIX ENDOCERVIX [facility] BASIC METABOLIC PANLon 07-30 Anion gap [Moles/Vol] 8 mmol/L Normal 5-15 [facility] Comment on above: Performed By: #### B MP ####[facility] ([id number])[address], [address], [place] [address] Calcium [Mass/Vol] 9.9 mg/dL Normal 8.5-10.5 [facility] Comment on above: Performed By: #### B MP ####[facility] ([id number])[address], [address], [place] [address] Chloride [Moles/Vol] 92 mmol/L Low 98-109 [facility] Comment on above: Performed By: #### B MP ####[facility] ([id number])[address] [address], [place] [address] CO2 [Moles/Vol] 32 mmol/L Normal 22-32 [facility] Comment on above: Performed By: #### B MP ####[facility] ([id number])[address] [address], [place] [address] Creatinine [Mass/Vol] 0.94 mg/dL Normal 0.40-1.00 [facility] Comment on above: Result Comment: METH OD TRACEABLE TO IDMS STANDARD Performed By: #### B MP ####[facility] ([id number])[address], [place] [address] GFR/1.73 sq M.predicted among non-blacks MDRD (S/P/Bld) [Vol rate/Area] 76 mL/min/{1.73_m2} Normal >59 [facility] Comment on above: Result Comment: Reported eGFR is based on the CKD-EPI 2020 equation that does not use a race coefficient. Performed By: #### B MP ####[facility] ([id number])[address] [address], [place] [address] Glucose [Mass/Vol] 577 mg/dL Critically high 65-99 [facility] Comment on above: Performed By: #### B MP ####[facility] ([id number])[address] [address] Potassium [Moles/Vol] 4.7 mmol/L Normal 3.5-5.0 [facility] Comment on above: Performed By: #### B MP ####[facility] ([id number])[address] [address], [place] [address] Sodium [Moles/Vol] 132 mmol/L Low 134-146 [facility] Comment on above: Performed By: #### B MP ####[facility] ([id number])[address] [address] Urea nitrogen [Mass/Vol] 25 mg/dL High 5-23 [facility] Comment on above: Performed By: #### B MP ####[facility] ([id number])[address] [address] CBC AND AUTO DIFFon 11-19-20 24 ABSOLUTE BASOPHIL 0.0 X10E9/L Normal 0.0-0.2 [facility] Comment on above: Performed By: #### 7 5241-0, 03326-9, CBCA, CMP ####[facility] ([id number])[address] [place] [address] ABSOLUTE NEUTROPHIL 7.2 X10E9/L High 1.5-6.6 [facility] Comment on above: Performed By: #### 7 5241-0, 44181-5, CBCA, CMP ####[facility] ([id number])[address] [place] [address] Basophils/100 WBC (Bld) 0.2 % Normal [facility] Comment on above: Performed By: #### 7 5241-0, , CBCA, CMP ####[facility] ([id number])[address] [place] [address] Eosinophils (Bld) [#/Vol] 0.0 10*3/uL Normal 0.0-0.4 [facility] Comment on above: Performed By: #### 7 5241-0, , CBCA, CMP ####[facility] ([id number])[address] [place] [address] Eosinophils/100 WBC (Bld) 0.2 % Normal [facility] Comment on above: Performed By: #### 7 5241-0, , CBCA, CMP ####[facility] ([id number])[address] [place] [address] Erythrocyte distribution width (RBC) [Ratio] 13.5 % Normal 11.5-15.0 [facility] Comment on above: Performed By: #### 7 5241-0, , CBCA, CMP ####[facility] ([id number])[address] [place] [address] Hematocrit (Bld) [Volume fraction] 33.7 % Low 35-47 [facility] Comment on above: Performed By: #### 7 5241-0, 75407-0, CBCA, CMP ####[facility] ([id number])[address] [place] [address] Hemoglobin (Bld) [Mass/Vol] 11.1 g/dL Low 11.7-15.5 [facility] Comment on above: Performed By: #### 7 5241-0, , CBCA, CMP ####[facility] ([id number])[address] [place] [address] Lymphocytes (Bld) [#/Vol] 2.2 10*3/uL Normal 1.0-3.5 [facility] Comment on above: Performed By: #### 7 5241-0, , CBCA, CMP ####[facility] ([id number])[address] [place] [address] Lymphocytes/100 WBC (Bld) 21.9 % Normal [facility] Comment on above: Performed By: #### 7 5241-0, , CBCA, CMP ####[facility] ([id number])[address] [place] [address] MCH (RBC) [Entitic mass] 28.7 pg Normal 27-34 [facility] Comment on above: Performed By: #### 7 5241-0, , CBCA, CMP ####[facility] ([id number])[address] [place] [address] MCHC (RBC) [Mass/Vol] 32.9 g/dL Normal 32-36 [facility] Comment on above: Performed By: #### 7 5241-0, , CBCA, CMP ####[facility] ([id number])[address] [place] [address] MCV (RBC) [Entitic vol] 87 fL Normal 80-100 [facility] Comment on above: Performed By: #### 7 5241-0, , CBCA, CMP ####[facility] ([id number])[address] [place] [address] Monocytes (Bld) [#/Vol] 0.5 10*3/uL Normal 0-0.9 [facility] Comment on above: Performed By: #### 7 5241-0, , CBCA, CMP ####[facility] ([id number])[address] [place] [address] Monocytes/100 WBC (Bld) 5.4 % Normal [facility] Comment on above: Performed By: #### 7 5241-0, , CBCA, CMP ####[facility] ([id number])[address] [place] [address] Neutrophils/100 WBC (Bld) 72.3 % Normal [facility] Comment on above: Performed By: #### 7 5241-0, , CBCA, CMP ####[facility] ([id number])[address] [place] [address] Platelet mean volume (Bld) [Entitic vol] 7.4 fL Normal 7-12 [facility] Comment on above: Performed By: #### 7 5241-0, , CBCA, CMP ####[facility] ([id number])[address] [place] [address] Platelets (Bld) [#/Vol] 190 10*3/uL Normal 150-450 [facility] Comment on above: Performed By: #### 7 5241-0, , CBCA, CMP ####[facility] ([id number])[address] [place] [address] RBC COUNT 3.86 X10E12/L Normal 3.80-5.20 [facility] Comment on above: Performed By: #### 7 5241-0, , CBCA, CMP ####[facility] ([id number])[address] [place] [address] WBC (Bld) [#/Vol] 10.0 10*3/uL Normal 4.0-11.0 [facility] Comment on above: Performed By: #### 7 5241-0, 48145-2, CBCA, CMP ####[facility] ([id number])[address] [place] [address] COMPREHENSIVE METABOLIC PANE Rodriguez 07-23-2024 Albumin [Mass/Vol] 3.3 g/dL Normal 3.2-5.3 [facility] Comment on above: Performed By: #### 7 5241-0, , CBCA, CMP ####[facility] ([id number])[address] [place] [address] ALP [Catalytic activity/Vol] 66 U/L Normal 39-130 [facility] Comment on above: Performed By: #### 7 5241-0, 60505-7, CBCA, CMP ####[facility] ([id number])[address] [place] [address] ALT [Catalytic activity/Vol] 16 U/L Normal 0-31 [facility] Comment on above: Performed By: #### 7 5241-0, 06646-0, CBCA, CMP ####[facility] ([id number])[address] [place] [address] Anion gap [Moles/Vol] 9 mmol/L Normal 5-15 [facility] Comment on above: Performed By: #### 7 5241-0, 33868-1, CBCA, CMP ####[facility] ([id number])[address] [place] [address] 15809 AST [Catalytic activity/Vol] 11 U/L Normal 0-41 [facility] Comment on above: Performed By: #### 7 5241-0, 00854-0, CBCA, CMP ####[facility] ([id number])[address] [place] [address] [place] [address] Bilirubin [Mass/Vol] 0.3 mg/dL Normal 0.3-1.2 [facility] Comment on above: Performed By: #### 7 5241-0, , CBCA, CMP ####[facility] ([id number])[address] [place] [address] 57805 Calcium [Mass/Vol] 8.5 mg/dL Normal 8.5-10.5 [facility] Comment on above: Performed By: #### 7 5241-0, , CBCA, CMP ####[facility] ([id number])[address] [place] [address] 37426 Chloride [Moles/Vol] 100 mmol/L Normal 98-109 [facility] Comment on above: Performed By: #### 7 5241-0, , CBCA, CMP ####[facility] ([id number])[address] [place] [address] 17231 CO2 [Moles/Vol] 24 mmol/L Normal 22-32 [facility] Comment on above: Performed By: #### 7 5241-0, 77810-2, CBCA, CMP ####[facility] ([id number])[address] [place] [address] 67358 Creatinine [Mass/Vol] 1.13 mg/dL High 0.40-1.00 [facility] Comment on above: Result Comment: METH OD TRACEABLE TO IDMS STANDARD Performed By: #### 7 5241-0, , CBCA, CMP ####[facility] ([id number])[address] [place] [address] 02953 GFR/1.73 sq M.predicted among non-blacks MDRD (S/P/Bld) [Vol rate/Area] 61 mL/min/{1.73_m2} Normal >59 [facility] Comment on above: Result Comment: Reported eGFR is based on the CKD-EPI 1 equation that does not use a race coefficient. Performed By: #### 7 5241-0, 26285-5, CBCA, CMP ####[facility] ([id number])[address] [place] [address] 26770 Glucose [Mass/Vol] 307 mg/dL High 65-99 [facility] Comment on above: Performed By: #### 7 5241-0, , CBCA, CMP ####[facility] ([id number])93 [place] [address] 61462 Potassium [Moles/Vol] 4.2 mmol/L Normal 3.5-5.0 [facility] Comment on above: Performed By: #### 7 5241-0, 64943-6, CBCA, CMP ####[facility] ([id number])[address] [place] [address] 33602 Protein [Mass/Vol] 6.0 g/dL Normal 6.0-8.0 [facility] Comment on above: Performed By: #### 7 5241-0, 79479-3, CBCA, CMP ####[facility] ([id number])[address] [place] [address] 19664 Sodium [Moles/Vol] 133 mmol/L Low 134-146 [facility] Comment on above: Performed By: #### 7 5241-0, , CBCA, CMP ####[facility] ([id number])[address] [place] [address] 93708 Urea nitrogen [Mass/Vol] 42 mg/dL High 5-23 [facility] Comment on above: Performed By: #### 7 5241-0, 61882-9, CBCA, CMP ####[facility] ([id number])[address] [place] [address] 86761 Glucose Glucometer (BldC) [M ass/Vol]on 07-23-2024 Glucose [Mass/Vol] 169 mg/dL High 65-99 [facility] Glucose [Mass/Vol] 260 mg/dL High 65-99 [facility] MAGNESIUMon 07-23-2024 Magnesium [Mass/Vol] 2.2 mg/dL Normal 1.8-2.6 [facility] Comment on above: Performed By: #### 7 5241-0, , CBCA, CMP ####[facility] ([id number])[address] [place] [address] 77882 Procalcitonin IA [Mass/Vol]o n 07-23-2024 PROCALCITONIN 0.20 ng/mL High <0.05 [facility] Comment on above: Result Comment: NOTE <0.50 ng/mL - Low risk of severe sepsis and/or septic shock. <2.00 ng/mL - Recommend retesting within 6-24 hours. >2.00 ng/mL - High risk of sepsis and/or septic shock. Performed By: #### 7 5241-0, , CBCA, CMP ####[facility] ([id number])[address] [place] [address] 79947 CBC AND AUTO DIFFon 07-22-20 24 ABSOLUTE BASOPHIL 0.0 X10E9/L Normal 0.0-0.2 [facility] Comment on above: Performed By: #### C JOSÉ LUIS, , CBCA ####[facility] ([id number])[address] [place] [address] 46371#### HA1C ####[facility] ([id number])[address] [facility] [address], [place] [address] ABSOLUTE NEUTROPHIL 7.1 X10E9/L High 1.5-6.6 [facility] Comment on above: Performed By: #### C JOSÉ LUIS, , CBCA ####[facility] ([id number])[address] [place] [address] 28880#### HA1C ####[facility] ([id number])[address] [address] Basophils/100 WBC (Bld) 0.1 % Normal [facility] Comment on above: Performed By: #### C JOSÉ LUIS, , CBCA ####[facility] ([id number])[address] [place] [address] 80154#### HA1C ####[facility] ([id number])[address] [place] [address] 66121 Eosinophils (Bld) [#/Vol] 0.0 10*3/uL Normal 0.0-0.4 [facility] Comment on above: Performed By: #### Shane ORDONEZ, , CBCA ####[facility] ([id number])[address] [place] [address] 71544#### HA1C ####[facility] ([id number])[address] [place] [address] 50569 Eosinophils/100 WBC (Bld) 0.0 % Normal [facility] Comment on above: Performed By: #### C JOSÉ LUIS, , CBCA ####[facility] ([id number])[address] [place] [address] 26687#### HA1C ####[facility] ([id number])[address] [place] [address] 42762 Erythrocyte distribution width (RBC) [Ratio] 13.2 % Normal 11.5-15.0 [facility] Comment on above: Performed By: #### Shane ORDONEZ, , CBCA ####[facility] ([id number])[address] [place] [address] 67343#### HA1C ####[facility] ([id number])[address] [place] [address], [address] [address] Hematocrit (Bld) [Volume fraction] 37.6 % Normal 35-47 [facility] Comment on above: Performed By: #### C JOSÉ LUIS, , CBCA ####[facility] ([id number])[address] [place] [address] 83074#### HA1C ####[facility] ([id number])[address] [place] [address], [address] [address] Hemoglobin (Bld) [Mass/Vol] 12.4 g/dL Normal 11.7-15.5 [facility] Comment on above: Performed By: #### C JOSÉ LUIS, , CBCA ####[facility] ([id number])[address] [place] [address] 31955#### HA1C ####[facility] ([id number])[address] [place] [address] Lymphocytes (Bld) [#/Vol] 0.5 10*3/uL Low 1.0-3.5 [facility] Comment on above: Performed By: #### C JOSÉ LUIS, , CBCA ####[facility] ([id number])[address] [place] [address] 45392#### HA1C ####[facility] ([id number])[address] [place] [address] 92733 Lymphocytes/100 WBC (Bld) 6.8 % Normal [facility] Comment on above: Performed By: #### Shane ORDONEZ, , CBCA ####[facility] ([id number])[address] [place] [address] 96794#### HA1C ####[facility] ([id number])[address], [place] [address] MCH (RBC) [Entitic mass] 28.9 pg Normal 27-34 [facility] Comment on above: Performed By: #### C JOSÉ LUIS, , CBCA ####[facility] ([id number])[address] [place] [address] 26065#### HA1C ####[facility] ([id number])[address], [place] [address] MCHC (RBC) [Mass/Vol] 33.1 g/dL Normal 32-36 [facility] Comment on above: Performed By: #### C JOSÉ LUIS, , CBCA ####[facility] ([id number])[address] [place] [address] 44961#### HA1C ####[facility] ([id number])[address], [address] [place] [address] MCV (RBC) [Entitic vol] 87 fL Normal 80-100 [facility] Comment on above: Performed By: #### Shane ORDONEZ, , CBCA ####[facility] ([id number])[address] [place] [address] 14958#### HA1C ####[facility] ([id number])[address], [address] [place] [address] 73534 Monocytes (Bld) [#/Vol] 0.1 10*3/uL Normal 0-0.9 [facility] Comment on above: Performed By: #### C JOSÉ LUIS, , CBCA ####[facility] ([id number])[address] [place] [address] 98609#### HA1C ####[facility] ([id number])[address] [address] Monocytes/100 WBC (Bld) 0.8 % Normal [facility] Comment on above: Performed By: #### Shane ORDONEZ, , CBCA ####[facility] ([id number])[address] [place] [address] 47219#### HA1C ####[facility] ([id number])[address], [place] [address] Neutrophils/100 WBC (Bld) 92.3 % Normal [facility] Comment on above: Performed By: #### Shane ORDONEZ, , CBCA ####[facility] ([id number])[address] [place] [address] 67031#### HA1C ####[facility] ([id number])[address] [address], [place] [address] Platelet mean volume (Bld) [Entitic vol] 7.5 fL Normal 7-12 [facility] Comment on above: Performed By: #### Shane ORDONEZ, , CBCA ####[facility] ([id number])[address] [place] [address] 41566#### HA1C ####[facility] ([id number])[address] [address], [place] [address] Platelets (Bld) [#/Vol] 171 10*3/uL Normal 150-450 [facility] Comment on above: Performed By: #### Shane ORDONEZ, , CBCA ####[facility] ([id number])[address] [place] [address] 98791#### HA1C ####[facility] ([id number])[address] [address] [address] RBC COUNT 4.31 X10E12/L Normal 3.80-5.20 [facility] Comment on above: Performed By: #### C JOSÉ LUIS, , CBCA ####[facility] ([id number])[address] [place] [address] 93041#### HA1C ####[facility] ([id number])[address], [address] [place] [address] 27616 WBC (Bld) [#/Vol] 7.7 10*3/uL Normal 4.0-11.0 [facility] Comment on above: Performed By: #### C JOSÉ LUIS, , CBCA ####[facility] ([id number])[address] [place] [address] 31418#### HA1C ####[facility] ([id number])[address], [address] [place] [address] [address] [facility] 07-22-2024 Albumin [Mass/Vol] 3.5 g/dL Normal 3.2-5.3 [facility] Comment on above: Performed By: #### Shane ORDONEZ, , CBCA ####[facility] ([id number])[address] [place] [address] 61421#### HA1C ####[facility] ([id number])[address], [address] [place] [address] 23837 ALP [Catalytic activity/Vol] 80 U/L Normal 39-130 [facility] Comment on above: Performed By: #### C JOSÉ LUIS, , CBCA ####[facility] ([id number])[address] [place] [address] 28855#### HA1C ####[facility] ([id number])[address], [address] [place] [address] 56827 ALT [Catalytic activity/Vol] U/L Normal 0-31 [facility] Comment on above: Performed By: #### C JOSÉ LUIS, , CBCA ####[facility] ([id number])[address] [place] [address] 05427#### HA1C ####[facility] ([id number])[address], [place] [address] Anion gap [Moles/Vol] 16 mmol/L High 5-15 [facility] Comment on above: Performed By: #### C JOSÉ LUIS, , CBCA ####[facility] ([id number])[address] [place] [address] 24331#### HARiana ####[facility] ([id number])[address], [address], [place] [address] AST [Catalytic activity/Vol] 26 U/L Normal 0-41 [facility] Comment on above: Performed By: #### C JOSÉ LUIS, , CBCA ####[facility] ([id number])[address] [place] [address] 77845#### HARiana ####[facility] ([id number])[address], [address] [address] Bilirubin [Mass/Vol] 0.4 mg/dL Normal 0.3-1.2 [facility] Comment on above: Performed By: #### C JOSÉ LUIS, , CBCA ####[facility] ([id number])[address] [place] [address] 84523#### HA1C ####[facility] ([id number])[address], [address], [place] [address] Calcium [Mass/Vol] 8.9 mg/dL Normal 8.5-10.5 [facility] Comment on above: Performed By: #### C JOSÉ LUIS, , CBCA ####[facility] ([id number])[address] [place] [address] 64992#### HA1C ####[facility] ([id number])[address] [facility], [address] [address] Chloride [Moles/Vol] 99 mmol/L Normal 98-109 [facility] Comment on above: Performed By: #### Shane ORDONEZ, , CBCA ####[facility] ([id number])[address] [place] [address] 10645#### HA1C ####[facility] ([id number])[address] [place] [address] 37398 CO2 [Moles/Vol] 20 mmol/L Low 22-32 [facility] Comment on above: Performed By: #### Shane ORDONEZ, , CBCA ####[facility] ([id number])[address] [place] [address] 79017#### HA1C ####[facility] ([id number])[address] [place] [address] 40195 Creatinine [Mass/Vol] 1.14 mg/dL High 0.40-1.00 [facility] Comment on above: Result Comment: METH OD TRACEABLE TO IDMS STANDARD Performed By: #### Shane ORDONEZ, , CBCA ####[facility] ([id number])[address] [place] [address] 14870#### HA1C ####[facility] ([id number])[address] [address] GFR/1.73 sq M.predicted among non-blacks MDRD (S/P/Bld) [Vol rate/Area] 60 mL/min/{1.73_m2} Normal >59 [facility] Comment on above: Result Comment: Reported eGFR is based on the CKD-EPI 2020 equation that does not use a race coefficient. Performed By: #### C JOSÉ LUIS, , CBCA ####[facility] ([id number])[address] [place] [address] 52351#### HA1C ####[facility] ([id number])[address], [place] [address] Glucose [Mass/Vol] 484 mg/dL Critically high 65-99 [facility] Comment on above: Performed By: #### C JOSÉ LUIS, , CBCA ####[facility] ([id number])[address] [place] [address] 36882#### HA1C ####[facility] ([id number])[address] [address] Potassium [Moles/Vol] 4.1 mmol/L Normal 3.5-5.0 [facility] Comment on above: Performed By: #### C JOSÉ LUIS, , CBCA ####[facility] ([id number])[address] [place] [address] 15787#### HA1C ####[facility] ([id number])[address], [address], [place] [address] Protein [Mass/Vol] 6.6 g/dL Normal 6.0-8.0 [facility] Comment on above: Performed By: #### C JOSÉ LUIS, , CBCA ####[facility] ([id number])[address] [place] [address] 23335#### HA1C ####[facility] ([id number])[address], [place] [address] Sodium [Moles/Vol] 135 mmol/L Normal 134-146 [facility] Comment on above: Performed By: #### C JOSÉ LUIS, , CBCA ####[facility] ([id number])[address] [place] [address] 46818#### HA1C ####[facility] ([id number])[address] [facility], [address] [place] [address] 8[address] Urea nitrogen [Mass/Vol] 28 mg/dL High 5-23 [facility] Comment on above: Performed By: #### Shane ORDONEZ, , CBCA ####[facility] ([id number])[address] [place] [address] 34213#### HA1C ####[facility] ([id number])[address] [facility], [address] [place] [address] Glucose Glucometer (BldC) [M ass/Vol]on 07-22-2024 Glucose [Mass/Vol] 311 mg/dL High 65-99 [facility] Glucose [Mass/Vol] 339 mg/dL High 65-99 [facility] Glucose [Mass/Vol] 363 mg/dL High 65-99 [facility] Glucose [Mass/Vol] 395 mg/dL High 65-99 [facility] Glucose [Mass/Vol] 488 mg/dL Critically high 65-99 [facility] HGB A1C (GLYCO-HGB)on 2023 Glucose [Mass/Vol] 229 mg/dL Normal [facility] Comment on above: Performed By: #### C JOSÉ LUIS, , CBCA ####[facility] ([id number])[address] [place] [address] 63719#### HA1C ####[facility] ([id number])[address] [facility], [address] [place] [address] 39671 HbA1c (Bld) [Mass fraction] 9.6 % High 4.4-5.6 [facility] Comment on above: Result Comment: NOTE ADA Guidelines Result HgbA1c Normal : less than 5.7 % Prediabetes : 5.7 % to 6.4 % Diabetes : > 6.4 % Use with caution in patients with abnormal hemoglobin variants as the half-life of red blood cells and in vivo glycation rates are affected. Performed By: #### C JOSÉ LUIS, 66289-0, CBCA ####[facility] ([id number])[address] [place] [address]#### HA1C ####[facility] ([id number])[address] [address] MAGNESIUMon 07-22-2024 Magnesium [Mass/Vol] 1.8 mg/dL Normal 1.8-2.6 [facility] Comment on above: Performed By: #### C JOSÉ LUIS, 93698-2, CBCA ####[facility] ([id number])[address] [place] [address]#### HA1C ####[facility] ([id number])[address] [facility], [address] [address] BASIC METABOLIC PANLon 07-21 Anion gap [Moles/Vol] 10 mmol/L Normal 5-15 [facility] Comment on above: Performed By: #### C RT #### [facility] ([id number]) [address] [facility], [address] [place] [address] Calcium [Mass/Vol] 9.2 mg/dL Normal 8.5-10.5 [facility] Comment on above: Performed By: #### C RT #### [facility] ([id number]) [address] [facility], [address] [place] [address] Chloride [Moles/Vol] 100 mmol/L Normal 98-109 [facility] Comment on above: Performed By: #### C RT #### [facility] ([id number]) [address], [address] [place] [address] CO2 [Moles/Vol] 29 mmol/L Normal 22-32 [facility] Comment on above: Performed By: #### C RT #### [facility] ([id number]) [address] [place] [address] Creatinine [Mass/Vol] 0.77 mg/dL Normal 0.40-1.00 [facility] Comment on above: Result Comment: METH OD TRACEABLE TO IDMS STANDARD Performed By: #### C RT #### [facility] ([id number]) [address] [place] [address] eGFR (CKD-EPI) NON-RACE DEPENDENT >90 Normal >59 [facility] Comment on above: Result Comment: Reported eGFR is based on the CKD-EPI 2020 equation that does not use a race coefficient. Performed By: #### C RT #### [facility] ([id number]) [address], [address] [place] [address] Glucose [Mass/Vol] 254 mg/dL High 65-99 [facility] Comment on above: Performed By: #### C RT #### [facility] ([id number]) [address] [place] [address] Potassium [Moles/Vol] 4.2 mmol/L Normal 3.5-5.0 [facility] Comment on above: Performed By: #### C RT #### [facility] ([id number]) [address] [place] [address] Sodium [Moles/Vol] 139 mmol/L Normal 134-146 [facility] Comment on above: Performed By: #### C RT #### [facility] ([id number]) [address] [place] [address] Urea nitrogen [Mass/Vol] 23 mg/dL Normal 5-23 [facility] Comment on above: Performed By: #### C RT #### [facility] ([id number]) [address] [place] [address] CBC AND AUTO DIFFon 07-21-20 24 ABSOLUTE BASOPHIL 0.0 X10E9/L Normal 0.0-0.2 [facility] Comment on above: Performed By: #### C RT #### [facility] ([id number]) [address] [place] [address] ABSOLUTE NEUTROPHIL 2.7 X10E9/L Normal 1.5-6.6 [facility] Comment on above: Performed By: #### C RT #### [facility] ([id number]) [address] [place] [address] Basophils/100 WBC (Bld) 0.7 % Normal [facility] Comment on above: Performed By: #### C RT #### [facility] ([id number]) [address] [place] [address] Eosinophils (Bld) [#/Vol] 0.1 10*3/uL Normal 0.0-0.4 [facility] Comment on above: Performed By: #### C RT #### [facility] ([id number]) [address] [place] [address] Eosinophils/100 WBC (Bld) 1.4 % Normal [facility] Comment on above: Performed By: #### C RT #### [facility] ([id number]) [address] [place] [address] Erythrocyte distribution width (RBC) [Ratio] 13.3 % Normal 11.5-15.0 [facility] Comment on above: Performed By: #### C RT #### [facility] ([id number]) [address] [place] [address] Hematocrit (Bld) [Volume fraction] 41.2 % Normal 35-47 [facility] Comment on above: Performed By: #### C RT #### [facility] ([id number]) [address] [place] [address] Hemoglobin (Bld) [Mass/Vol] 13.6 g/dL Normal 11.7-15.5 [facility] Comment on above: Performed By: #### C RT #### [facility] ([id number]) [address] [place] [address] Lymphocytes (Bld) [#/Vol] 2.1 10*3/uL Normal 1.0-3.5 [facility] Comment on above: Performed By: #### C RT #### [facility] ([id number]) [address] [place] [address] Lymphocytes/100 WBC (Bld) 40.9 % Normal [facility] Comment on above: Performed By: #### C RT #### [facility] ([id number]) [address] [place] [address] MCH (RBC) [Entitic mass] 28.5 pg Normal 27-34 [facility] Comment on above: Performed By: #### C RT #### [facility] ([id number]) [address] [place] [address] MCHC (RBC) [Mass/Vol] 33.0 g/dL Normal 32-36 [facility] Comment on above: Performed By: #### C RT #### [facility] ([id number]) [address], [address] [place] [address] MCV (RBC) [Entitic vol] 87 fL Normal 80-100 [facility] Comment on above: Performed By: #### C RT #### [facility] ([id number]) [address] [place] [address] Monocytes (Bld) [#/Vol] 0.2 10*3/uL Normal 0-0.9 [facility] Comment on above: Performed By: #### C RT #### [facility] ([id number]) [address] [place] [address] Monocytes/100 WBC (Bld) 4.6 % Normal [facility] Comment on above: Performed By: #### C RT #### [facility] ([id number]) [address] [place] [address] Neutrophils/100 WBC (Bld) 52.4 % Normal [facility] Comment on above: Performed By: #### C RT #### [facility] ([id number]) [address], [address] [place] [address] Platelet mean volume (Bld) [Entitic vol] 7.0 fL Normal 7-12 [facility] Comment on above: Performed By: #### C RT #### [facility] ([id number]) [address], [address] [place] [address] Platelets (Bld) [#/Vol] 190 10*3/uL Normal 150-450 [facility] Comment on above: Performed By: #### C RT #### [facility] ([id number]) [address], [address] [place] [address] RBC COUNT 4.77 X10E12/L Normal 3.80-5.20 [facility] Comment on above: Performed By: #### C RT #### [facility] ([id number]) [address], [address] [place] [address] WBC (Bld) [#/Vol] 5.2 10*3/uL Normal 4.0-11.0 [facility] Comment on above: Performed By: #### C RT #### [facility] ([id number]) [address], [address] [place] [address] Fibrin D-dimer DDU (PPP) [Ma ss/Vol]on 07-21-2024 D DIMER 217 ng/mL DDU Normal <255 [facility] Comment on above: Result Comment: Results <255 ng/mL DDU: The presence of a VTE can safely be excluded with a negative D-Dimer result and Wells score. A negative result doesn't exclude the possibility of DIC. The test be repeated along with other diagnostic tests if the patient's symptoms persist or worsen. [email or web address] Performed By: #### C RT #### [facility] ([id number]) [address] [facility], [address] [address] MAGNESIUMon 07-21-2024 Magnesium [Mass/Vol] 2.0 mg/dL Normal 1.8-2.6 [facility] Comment on above: Performed By: #### C RT #### [facility] ([id number]) [address] [address] Natriuretic peptide B [Mass/ Vol]on 07-21-2024 Natriuretic peptide B (Bld) [Mass/Vol] 20 pg/mL Normal <100.0 [facility] Comment on above: Performed By: #### C RT #### [facility] ([id number]) [address], [address] [address] SARS/FLU A+B/RSV by NAAT/Mol ecularon 07-21-2024 SARS/FLU [...] operators who are performing tests using either [facility] or [facility] systems and is limited to laboratories that [...] information. An Invalid result may occur with specimen-associate d inhibition unable to be resolved with specimen repeat. Fact Sheet for Healthcare Providers: https://www.fda.go v/media/392934/chapo nload Fact Sheet for Patients: https://www.fda.go v/media/365811/chapo nload Normal [facility] Comment on above: Performed By: #### C OVFLR ####[facility] ([id number])[address] [place] [address] THYROID PROFILEon 07-21-2024 Free T4 [Mass/Vol] 1.11 ng/dL Normal 0.61-1.60 [facility] Comment on above: Performed By: #### C RT #### [facility] ([id number]) [address] [place] [address], [address] [place] [address] TSH 2.45 uIU/mL Normal 0.49-4.67 [facility] Comment on above: Performed By: #### C RT #### [facility] ([id number]) [address] [place] [address], [address] [place] [address] Troponin I.cardiac High sens itivity method [Mass/Vol]on 07-21-2024 3 HOUR TROP I, HIGH SENSITIVITY 3 ng/L Normal <16 [facility] Comment on above: Performed By: #### 8 9579-7 ####[facility] ([id number])[address] [place] [address]40 1 HOUR TROP I, HIGH SENSITIVITY 3 ng/L Normal <16 [facility] Comment on above: Performed By: #### 8 9579-7 ####[facility] ([id number])[address] [place] [address] 52668 TROPONIN I, HIGH SENSITIVITY 3 ng/L Normal <16 [facility] Comment on above: Performed By: #### C RT #### [facility] ([id number]) [address] [place] [address], [address] [place] [address] XR CHEST 1 VWon 07-21-2024 XR CHEST 1 VW XR CHEST 1 VW XR CHEST 1 VW IMPRESSION: Clinical Information: chest pain Comparison: 06/28/24. * No pulmonary edema or consolidation. * No effusions. * Stable heart size. * Mild elevation right hemidiaphragm. 99 Finalized by Shama Calvin MD on 07/21/2024 5:08 PM Normal [facility] MAGR Postoperative Recordon 07-16-2024 MAGR Postoperative Record MAGR Phase II Record Summary Primary Physician: Arianna Miller DO Finalized Date/Time: 07/16/24 07:39:56 Pt. Name: CARISSA SANTOS/Sex: 1980 FEMALE Med Rec #: [id number] Physician: Arianna Miller DO Financial #: [id number] Pt. Type: D Room/Bed: / Admit/Disch: 06/17/24 08:13:31 - 06/17/24 11:42:00 Institution: Phase II Case Times EVA Pre-Care Text: Patient is free from s/s [...] in order for charges to drop. Normal [facility] BASIC METABOLIC PANLon 06-28 Anion gap [Moles/Vol] 10 mmol/L Normal 5-15 [facility] Comment on above: Performed By: #### 4 8066-5, CBCA, BMP, 39947-5 #### [facility] ([id number]) [address] [place] [address] 74181 Calcium [Mass/Vol] 9.1 mg/dL Normal 8.5-10.5 [facility] Comment on above: Performed By: #### 4 8066-5, CBCA, BMP, 06336-4 #### [facility] ([id number]) [address] [place] [address] 17842 Chloride [Moles/Vol] 103 mmol/L Normal 98-109 [facility] Comment on above: Performed By: #### 4 8066-5, CBCA, BMP, 29072-9 #### [facility] ([id number]) [address] [place] [address] 54013 CO2 [Moles/Vol] 26 mmol/L Normal 22-32 [facility] Comment on above: Performed By: #### 4 8066-5, CBCA, BMP, 04471-7 #### [facility] ([id number]) [address] [place] [address] 01398 Creatinine [Mass/Vol] 1.04 mg/dL High 0.40-1.00 [facility] Comment on above: Result Comment: METH OD TRACEABLE TO IDMS STANDARD Performed By: #### 4 8066-5, CBCA, BMP, 15986-7 #### [facility] ([id number]) [address] [place] [address] 22529 GFR/1.73 sq M.predicted among non-blacks MDRD (S/P/Bld) [Vol rate/Area] 68 mL/min/{1.73_m2} Normal >59 [facility] Comment on above: Result Comment: Reported eGFR is based on the CKD-EPI 1 equation that does not use a race coefficient. Performed By: #### 4 8066-5, CBCA, BMP, 34364-1 #### [facility] ([id number]) [address] [place] [address] 96219 Glucose [Mass/Vol] 218 mg/dL High 65-99 [facility] Comment on above: Performed By: #### 4 8066-5, CBCA, BMP, 19288-3 #### [facility] ([id number]) [address] [place] [address] 35449 Potassium [Moles/Vol] 4.0 mmol/L Normal 3.5-5.0 [facility] Comment on above: Performed By: #### 4 8066-5, CBCA, BMP, 96049-5 #### [facility] ([id number]) [address] [place] [address] 80259 Sodium [Moles/Vol] 139 mmol/L Normal 134-146 [facility] Comment on above: Performed By: #### 4 8066-5, CBCA, BMP, 59094-3 #### [facility] ([id number]) [address] [place] [address] 67570 Urea nitrogen [Mass/Vol] 30 mg/dL High 5-23 [facility] Comment on above: Performed By: #### 4 8066-5, CBCA, BMP, 81525-2 #### [facility] ([id number]) [address] [place] [address] 58764 CBC AND AUTO DIFFon 10-25-20 24 ABSOLUTE BASOPHIL 0.0 X10E9/L Normal 0.0-0.2 [facility] Comment on above: Performed By: #### 4 8066-5, CBCA, BMP, 70598-8 #### [facility] ([id number]) [address] [place] [address] 23937 ABSOLUTE NEUTROPHIL 3.7 X10E9/L Normal 1.5-6.6 [facility] Comment on above: Performed By: #### 4 8066-5, CBCA, BMP, 82703-5 #### [facility] ([id number]) [address] [place] [address] 77970 Basophils/100 WBC (Bld) 0.6 % Normal [facility] Comment on above: Performed By: #### 4 8066-5, CBCA, BMP, 04515-4 #### [facility] ([id number]) [address] [place] [address] 28143 Eosinophils (Bld) [#/Vol] 0.1 10*3/uL Normal 0.0-0.4 [facility] Comment on above: Performed By: #### 4 8066-5, CBCA, BMP, 93131-6 #### [facility] ([id number]) [address] [place] [address] 89949 Eosinophils/100 WBC (Bld) 1.6 % Normal [facility] Comment on above: Performed By: #### 4 8066-5, CBCA, BMP, 24303-7 #### [facility] ([id number]) [address] [place] [address] 66121 Erythrocyte distribution width (RBC) [Ratio] 14.0 % Normal 11.5-15.0 [facility] Comment on above: Performed By: #### 4 8066-5, CBCA, BMP, 10822-2 #### [facility] ([id number]) [address] [place] [address] 81160 Hematocrit (Bld) [Volume fraction] 37.6 % Normal 35-47 [facility] Comment on above: Performed By: #### 4 8066-5, CBCA, BMP, 45666-9 #### [facility] ([id number]) [address] [place] [address] 22755 Hemoglobin (Bld) [Mass/Vol] 12.4 g/dL Normal 11.7-15.5 [facility] Comment on above: Performed By: #### 4 8066-5, CBCA, BMP, 84116-1 #### [facility] ([id number]) [address] [place] [address] 48446 Lymphocytes (Bld) [#/Vol] 2.6 10*3/uL Normal 1.0-3.5 [facility] Comment on above: Performed By: #### 4 8066-5, CBCA, BMP, 63164-3 #### [facility] ([id number]) [address] [place] [address] 35257 Lymphocytes/100 WBC (Bld) 37.6 % Normal [facility] Comment on above: Performed By: #### 4 8066-5, CBCA, BMP, 93079-8 #### [facility] ([id number]) [address] [place] [address] 73435 MCH (RBC) [Entitic mass] 28.6 pg Normal 27-34 [facility] Comment on above: Performed By: #### 4 8066-5, CBCA, BMP, 15266-8 #### [facility] ([id number]) [address] [place] [address] 52743 MCHC (RBC) [Mass/Vol] 32.9 g/dL Normal 32-36 [facility] Comment on above: Performed By: #### 4 8066-5, CBCA, BMP, 72169-7 #### [facility] ([id number]) [address] [place] [address] 49960 MCV (RBC) [Entitic vol] 87 fL Normal 80-100 [facility] Comment on above: Performed By: #### 4 8066-5, CBCA, BMP, 26151-1 #### [facility] ([id number]) [address] [place] [address] 62014 Monocytes (Bld) [#/Vol] 0.4 10*3/uL Normal 0-0.9 [facility] Comment on above: Performed By: #### 4 8066-5, CBCA, BMP, 66914-6 #### [facility] ([id number]) [address] [place] [address] 03103 Monocytes/100 WBC (Bld) 5.6 % Normal [facility] Comment on above: Performed By: #### 4 8066-5, CBCA, BMP, 30572-3 #### [facility] ([id number]) [address] [place] [address] Neutrophils/100 WBC (Bld) 54.6 % Normal [facility] Comment on above: Performed By: #### 4 8066-5, CBCA, BMP, 33592-0 #### [facility] ([id number]) [address] [place] [address] 50289 Platelet mean volume (Bld) [Entitic vol] 6.9 fL Low 7-12 [facility] Comment on above: Performed By: #### 4 8066-5, CBCA, BMP, 22816-7 #### [facility] ([id number]) [address] [place] [address] 31196 Platelets (Bld) [#/Vol] 224 10*3/uL Normal 150-450 [facility] Comment on above: Performed By: #### 4 8066-5, CBCA, BMP, 85407-6 #### [facility] ([id number]) [address] [place] [address] 26691 RBC COUNT 4.32 X10E12/L Normal 3.80-5.20 [facility] Comment on above: Performed By: #### 4 8066-5, CBCA, BMP, 72917-4 #### [facility] ([id number]) [address] [place] [address] 40449 WBC (Bld) [#/Vol] 6.8 10*3/uL Normal 4.0-11.0 [facility] Comment on above: Performed By: #### 4 8066-5, CBCA, BMP, 11490-9 #### [facility] ([id number]) [address] [place] [address] 97811 Fibrin D-dimer DDU (PPP) [Ma ss/Vol]on 06-28-2024 D DIMER 220 ng/mL DDU Normal <255 [facility] Comment on above: Result Comment: Results <255 ng/mL DDU: The presence of a VTE can safely be excluded with a negative D-Dimer result and Wells score. A negative result doesn't exclude the possibility of DIC. The test be repeated along with other diagnostic tests if the patient's symptoms persist or worsen. [email or web address]&uh =acaea Performed By: #### 4 8066-5, CBCA, [facility], 65421-9 #### [facility] ([id number]) [address] [place] [address], [place] [address] Troponin I.cardiac High sens itivity method [Mass/Vol]on 06-28-2024 3 HOUR TROP I, HIGH SENSITIVITY 39 ng/L High <16 [facility] Comment on above: Result Comment: Elevations of hs-Troponin may be due to causes other than myocardial ischemia. Recommend serial hs-Troponin testing be performed. For the initial evaluation and management of chest pain patients, refer to the algorithms linked below. Emergency Patient: [email or web address]&uh =acaea Inpatient: [email or web address]&uh =acaea Performed By: #### C RT #### [facility] ([id number]) [address] [place] [address], [address] [place] [address] 1 HOUR TROP I, HIGH SENSITIVITY 35 ng/L High <16 [facility] Comment on above: Result Comment: Elevations of hs-Troponin may be due to causes other than myocardial ischemia. Recommend serial hs-Troponin testing be performed. For the initial evaluation and management of chest pain patients, refer to the algorithms linked below. Emergency Patient: [email or web address]/dv/[email or web address]&[email or web address]&uh =acaea Inpatient: [email or web address]&uh =acaea Performed By: #### C RT #### [facility] ([id number]) [address] [facility], [address] [place] [address] TROPONIN I, HIGH SENSITIVITY 32 ng/L High <16 [facility] Comment on above: Result Comment: Elevations of hs-Troponin may be due to causes other than myocardial ischemia. Recommend serial hs-Troponin testing be performed. For the initial evaluation and management of chest pain patients, refer to the algorithms linked below. Emergency Patient: [email or web address]&[email or web address]&uh =acaea Inpatient: [email or web address]&uh =acaea Performed By: #### 4 8066-5, CBCA, BMP, 76973-1 #### [facility] ([id number]) [address] [place] [address], [place] [address] XR CHEST 1 VWon 06-28-2024 XR CHEST 1 VW XR CHEST 1 VW XR CHEST 1 VW HISTORY: Chest pain COMPARISON: Chest radiograph 12/20/2023 FINDINGS: Portable AP upright view of the chest obtained. The cardiomediastinal silhouette is within normal limits. No pleural effusion. No consolidation. IMPRESSION: No radiographic evidence of acute cardiopulmonary process. Approved by Resident: Andi Ballard DO on 06/28/2024 8:06 PM IStephan MD have personally reviewed the image(s) and agree with and/or edited the report 27 Finalized by Stephan Richardson MD on 06/28/2024 8:13 PM Normal [facility] Coding Summaryon 06-20-2024 Coding Summary HTMLBase 64 XmvxgnxjNHw1oWk+PG hlYWQ+IS8ZFWLmL90e yNBppH1uI2FAFQaOYd wgQVBQTElOSyIgbmFt HY4cqTJaOEEk IC8+BX5fFVWvFzbsqV Iro1I2mGC2Q08zxr9x WYhvpMR5EMAwFoZjjq inw2hkdDi2WFvaWiow OyBt VJKwhC06TGK0bA80Ru 12nVRnwSByj7lhpBl3 NlOnJUQcKPU3kJgmEQ poq0SaNBHsU58nfPBy c2U6 IGNvbGxhcHNlOyBlbX G8wB4iSCidtatic4iq qjixPea6kl59lJRup0 I1aRG4G9HromI0NVFl bGQg BvbwnXZXmY1tuunwq9 xvcjogIzAwMDAwMDt0 SMe6SQGgiQxvIpOzFZ 61ZIN1KBGcvrDxG0Vw LWFs zVoqLzG4s2W9Se0XS5 YSKuuzI0PUWKFYFVll dGQ+CP74op49I4AgDx fjAso5ZOAhTMW6wNX2 aD0n FRKmKCyns5F7wFZ4M8 NkjbMdwa9rq3gtAOPe OCsyX99zdGWob1V5MC PgfMI3FZKclBxhKwZy aG93 Oyc+ZYQugWhxe6UzDg cue7xxt7yoaEa7Ldhc CWRmctMibObqDQM5l6 DgOq4bHVIhkNL3dKO9 aD0i SuTvWiO7JKgyA783Lj DmuNHoCbriK87hM1Lp dXA+OLQyJrc3JQJqqL zhSS6kA7SyVJCyfjmb bGVm aJonMN8xRQDwnuagJK NleR0aRNViW9x3JiDx PeB0GAqqL9CsFCRxfh yhHw09zR5xFvMxFgQ9 MGlu O7QrtlT2INQfmKXgTY qiJHF5H85eq6I9GQXi MAOeOHQ3rNP0jR3vjO lnbjogbGVmdDsgdmVy dGlj MVrbGAmmY382SXHgcI snPkNvZGluZyBEYXRl OiAgMTAvMTcvMjAyND wvdGQ+GMPoENW9wKkv PSAn qLMtFRmvKf4thUfteG ofQW7oDXFqlupgCUHc nD5bJMRsjFRukGqqYW 6oSRBgwspzd746DuDl MHB0 QZGssHDrL1VhwF8oAy XbKRPuOSWfE3HajBBo NRncX271MMxgGwN5MZ GjfyVxI7GfUZUmdCvu OiB0 n1Q9Lc0Lp9AzabjuA4 RhdHVzOiAgRmluYWw8 X3ZsOtxfhZF+PC90YW AxOZ85BYr1HGB0pKai PSdi NGGfG6YpmC9kReRtJY RkZGRkOyc+PHRhYmxl IHdpZHRoPScxMDAlJy PllUmcMC1aWf2kEVNo LWNv xLrqzVAwNfJiq2miJZ HeDIfiWT3ryCgeC9Kg tAA5MWVdh7s9Gh14V6 0uO4GqeGZ+PGNvbCB3 aWR0 nJ2dPyDaByF5EGezW2 70KxPfgQGyCmfjt1ln z1qbyZo9EkB8QDWmws QrjZztUJL6p7ZoJo84 Y29s IHdpZHRoPSIxNSUiIH KcrQprbl3daA2qIx3+ EICvxIX7eXF9rP1kSr IkLmD1IOrmI676CcIb cCIv Ehpts0teg1goqCu5Or IwJSIgdmFsaWduPSJ0 g9PwOf95W4DxbSlna1 EyUwh5mq94zHEot6B6 bGU9 A2PyFNEsyhuuvXGxqE zmRM5vKINlbfiqKLXu aZ3dDJDoI2e5ZsCzSl B7ANazM5FwgcA5KNDy bGQg BQLczHMDdO8lxxouv6 xvcjogIzAwMDAwMDt0 SJy3PGOdnLukUwCfQQ B3BuO0NER5gGZmkB8a bGln mxaacL2gIca+UGF0aW PpaMWPJF8xRiztbXI+ BMWpIRP8lPflAPjvJU SxyU2bLGZxM3s6PvEg LjA1 LJvxK8XwuwB6AEXelD EgERDazPJFjP7oyfrz r3hsysadBzTiLZSoGH w1UDi2FNLtxJaaFfAj ZWZ0 UyN9ZMX9yUPnsQ3twY ujnfhvdY4bShz+Qmly wOobJAM1RBa8U3NsOl r9YRFguEywBS7vuGHj ZGlu Jy7fbTzqnFtbIB1cBJ Yzpgcxy978GsBsj6ll ERYpeUVbUJyfNJP7B6 5dr6S9YRAeRJMdQDG5 dGV4 tY1smVbnobmcxUNheI sgdmVydGljYWwtYWxp H376FHJvwRrlHrUbWU d8F6YgMyz4ZORtaBlx ZT0n hMBwAQkrDl5mgBlicZ lvNL6kOJUvlmdgg511 VzKfs3nuQLQrkWShFP pdDCX7W69iv9P8WEHz MDAw LFD0sAF1jQ4wbZlsov ogbGVmdDsgdmVydGlj VOqhBEubU047LATdzW poDsSscFy6Q3CuYly4 ZCBz nUlsJD2iwHEuPCpoMb 6kzVxxqCkmBR2eYQCx mnkpz230TzYfo8evVV LdnLSfBRtjEPD0G72v b3I6 VGMdGKZiJZB4jXI9sG 1hbGlnbjogbGVmdDsg dmVydGljYWwtYWxpZ2 46IHRvcDsnPlBhdGll bnQg QGmlGQq9E8NqLdivoB I+OX12PZQdPU07wGDh lBKws1qorEk6WrVgLG QuZHX5aJloIObhw9Ns ZXIt V73bcEXhf0R2HXGojP matLUcOnYbyWE9vF0m IGabzogji6sudyqkJt lcc5psei85cY79K99i IHdp ZHRoPSIzMCUiIHZhbG hejx0lgU3eMm2+PGNv nQJ0iOF3zK2uESLvVd M9TIflX873UuHutMJe Pjxj p2eqn2mzzEs2DkR2NC DkmpNhcBehNTJ0a7Gr Cj55Q75mHWavNIKxLV RfJXOkYZLmzTauhp9p dG9w Ii8+IFAteKQ8eUE0fN 8aKwTxKeA9XEtzN620 PpKczPDwTlmnZ83hE8 JvdXA+LUNrHuf5IEMm dHls EX0weVMpOWzrYm4xCT G1MvVpYyPlWCotQ3Zs KVCsipwpmtuuqPH7IG QxCOOpyP22Xi3nyEbf MTBw qLGEhR8aflxif5uuyf aoZnGeWBDrBFp1PNi7 QUAdqMfaQrDkCKL5Wl D9LNT1uMQheX2qyEwc bjog mI6cZ3WeMXKnmiwhNo 80iJ8sQzPqIaZ1QDdu Oyc+GZTBNG0REIKWOY BJOKtlVv2RYPkdoOX+ PHRk RGM3qTlyIArhSJMveJ 4yDUMyW1p4YjCiIyX0 HPheT6QoFRPfyrsiZd 28aT6yJwWtZgC2GIld O2Zv ghG3FSMxgEYyANkxNZ U9H42hv8U9VERuVTRv VTW0tJY9aJ1ooHkwlw ogbGVmdDsgdmVydGlj YWwt KAxmE157WGScfLayVj MgDiD8AaT4Nmj5A3Hb Yoo7QKJddBeyUU2nbG YnWNxeDq5egRrhuTmk MC4w KUUyvlxtJSZhrO5lQX OzcGAvnRutHV7hHJCx qyszv208HrTeRXR6QX KeiEKdU6NerG5tMfXv MDAw OHZiS7WgpPAdQUykX6 09ZHncYrX0YHVmejPx T9YvALKznFsdNqV3m6 N7Bc86LFOEIBObluzh dGQ+ UORiVMI9sIjuCHraSZ KgsT9gCHWbD1z7YxBi BcT2KDlxH1AaCHCsnw jlMp22jB2zZjBrSjF9 MGlu D3BaygI7VBDbfQDkSE hqPFE5I75gg3E6XDPu COLvBYK7eWX8mN7bgR lnbjogbGVmdDsgdmVy dGlj ZMrxVNktP802SULevC snPkZFTUFMRTwvdGQ+ UVTkBFK8tTevLIacBX PczF6sWRMqZ9r8UkVb LjA1 PHnwM1LnXSRxmsukKy 38wO9wJlYpSkE2XJhw I6YpssV0JETjsHUgIF leVPO9S51ma0Q2UCVh MDAw GWL4hYV8xX7fmWsrha ogbGVmdDsgdmVydGlj ZPloANidF020RHPizX snPkRheSBTdXJnZXJ5 PC90 PS41G8WmQnembYEatE U+PHRhYmxlIHdpZHRo PScxMDAlJyBzdHlsZT 8bAg0nDMKhLSZwwUjv cHNl GaYqa4viYXPiWVslYW 4ziSbtA2KpdTB7SDQj v1l2Bo28X03tU6XruZ A+LIKxbTK6sRI7dL4j MzAl EbB9ZBxuY677KdEhrA JaOitjj2vwv9yboTt5 IjMwJSIgdmFsaWduPS V5a6GjIc74S16sMBsv ZHRo PSIyMCUiIHZhbGlnbj 4wrL9hXf5+PGNvbCB3 rTS2eA3fSsWrHqC2VR itW388VgUdxLCrFhuk Y29s F4GexKU+IOElPqh1AB AoeQvzTK2gzWCoKZyn El8mYHD7EiFbSlZeHI qhE7SkSDNsktakonki aHQ6 QWCePOJjyC70Bc6uiJ moIs5kBYTdQCG6QZRp vUVtH0PehY9fXbCdTL ShWENfX1SccNGcTWcs Z246 MVvoLaD9QNWqsiOzJ1 KdNGSroOliUlJ2h6Q6 Zf7LyQkhkQPtOJ4aKl XyFCl7C8KeLft2EFVi dHls EZ1keJWzZQmmWd3tjB iymGdnWK8bVMRxmjme h701QuPww6gkKSTkfQ AtPSqvBHL5D90rz3F6 ICMw UYLaFAB1tVQ0lI7ywX lnbjogbGVmdDsgdmVy hXuiOGmrCOtaV310HF TriWibUbWIXrs3D1Sb Pjx0 LJTagGxrFA0mfGXuRU fuFb8xgIvkyMloUT8y QFAltrwze549LfXmv6 xkIDEwcHQgVGltZXM7 Y29s v3J6LJEmEZTlSXF9sW Z6oZ7vqZowkehcxXKj dDsgdmVydGljYWwtYW fbS872CFZgsKsrOr0H Tjo8 H6VfCft7EHKlbKhcXL 2wwPYxFGtlHr5ymGnr hTovMH2vHFKpyhgbr1 42JjJwc0hgFMZojJPh VGlt JKJ8C12cp0J4NTHkNY YgSWM5fMD4hV3ntWux bjogbGVmdDsgdmVydG adQYvvBOlsA314BEUe cDsn PlBheWVyOjwvdGQ+PC 26sd64H3BbMlrkYqa3 ISQyLYF1uIL2kE9iCB SeKEase2R2oSM7D3Rp cmRl ci1 (more content not included)... Normal [facility] MAGR Intraoperative Recordon 06-20-2024 MAGR Intraoperative Record MAGR Intra-Op Record Summary Primary Physician: Arianna Miller DO Finalized Date/Time: 06/20/24 08:21:54 Pt. Name: ANGELA CARISSADARRYL Cano/Sex: 1980 FEMALE Med Rec #: [id number] Physician: Arianna Miller DO Financial #: [id number] Pt. Type: D Room/Bed: / Admit/Disch: 06/17/24 08:13:31 - 06/17/24 11:42:00 Institution: Case Times MAGR Entry 1 Patient In Room Time 06/17/24 [...] Role Performed Surgeon - Primary Anesthesiologist of Annual Greenhouse Manager Record Time In 06/17/24 10:22:00 06/17/24 10:16:00 06/17/24 10:16:00 Time Out 06/17/24 10:37:00 06/17/24 10:43:00 06/17/24 10:43:00 Procedure Carpal Tunnel Carpal Tunnel Carpal Tunnel Release(Right) Release(Right) Release(Right) Last Modified By: Jessica Ordonez RN, Diane RN Kokinda, Diane RN 06/17/24 10:47:37 06/17/24 10:47:37 06/17/24 10:47:37 Entry 4 Entry 5 Case Attendee Heaven Lainez Regina CSFA CAT CRACKER OPERATOR CAT CRACKER OPERATOR Role Performed Scrub Personnel Media Consultant Time In 06/17/24 10:16:00 06/17/24 10:16:00 Time Out 06/17/24 10:43:00 06/17/24 10:43:00 Procedure Carpal Tunnel Carpal Tunnel Release(Right) Release(Right) Last Modified By: Jessica Ordonez RN, Diane RN 06/17/24 10:47:37 06/17/24 10:47:37 Surgical Procedures MAGR Pre-Care Text: A.20 Verifies operative procedure, surgical site, and laterality Im.150 Develops individualized plan of care Entry 1 Procedure Carpal Tunnel Release Primary Procedure Yes Primary Surgeon Arianna Miller Right Terrance DO Surgeon Comment RIGHT CARPAL TUNNEL Start [...] RN, Time Out Time 06/17/24 10:28:00 Participants Gerri Newberry JOSELIN CAT CRACKER OPERATOR, Jessica Ordonez RN Last Modified By: Jessica [...] Verifies allergies Im.2 (more content not included)... [facility] Consent Formson 06-18-2024 Consent Forms [id number]ructions[facility] Discharge Instructions [id number][facility] Outside Recordson 06-18-2024 Outside Records [id number] Anesthesia Noteon 06-17-2024 Anesthesia Note Patient: CARISSA SANTOS Age: 43 years Sex: FEMALE : 1980 Associated Diagnoses: None Author: Olivier Lares MD Postoperative Information Post Operative Note: Operative Day. Anesthetic utilized: Monitored anesthesia care. Health Status Allergies: Allergic Reactions (All) Moderate Bactrim- Rash. Canceled/Inactive Reactions (All) No known allergies Problem list: All Problems Anxiety / SNOMED CT 72014555 / Confirmed Chronic hypoxic respiratory failure / SNOMED CT 2509309150 / Confirmed Depression / SNOMED CT 31735409 / Confirmed Developmental delay / SNOMED CT 636364120 / Confirmed Diabetes / SNOMED CT 308477951 / Confirmed GERD (gastroesophageal reflux disease) / SNOMED CT 251288199 / Confirmed High blood cholesterol / SNOMED CT 47623198 / Confirmed HTN (hypertension) / SNOMED CT 4797991916 / Confirmed Irritable bowel syndrome (IBS) / SNOMED CT 77286496 / Confirmed Pulmonary nodule / SNOMED CT 9820751063 / Confirmed Obesity / SNOMED CT 6933874738 / Confirmed Physical Examination Vital Signs (last [...] good. [Electronically Signed on: 06/17/2024 10:48 EDT] ____ Olivier Lares MD [Verified on: 06/17/2024 10:48 EDT] ____ Olivier Lares MD [facility] Anesthesia Note Patient: CARISSA SANTOS Age: 43 years Sex: FEMALE : 1980 [...] list: All Problems Anxiety / SNOMED CT 75175678 / Confirmed Chronic hypoxic respiratory failure / SNOMED CT 7807714871 / Confirmed Depression / SNOMED CT 38450631 / Confirmed Developmental delay / SNOMED CT 105246166 / Confirmed Diabetes / SNOMED CT 221904635 / Confirmed GERD (gastroesophageal reflux disease) / SNOMED CT 177701014 / Confirmed High blood cholesterol / SNOMED CT 61989466 / Confirmed HTN (hypertension) / SNOMED CT 0980795639 / Confirmed Irritable bowel syndrome (IBS) / SNOMED CT 09262480 / Confirmed Pulmonary nodule / SNOMED CT 0797235570 / Confirmed Obesity / SNOMED CT 6935011761 / Confirmed Histories Family History: Heart attack Mother COPD (chronic obstructive pulmonary disease) Mother Procedure history: Carpal tunnel ([id number]) on 09/25/2023 at 43 Years. Comments: 09/25/2023 8:27 Jennyfer Benoit RN left TL - Tubal ligation (063539492) on 03/31/2023 at 42 Years. Genital warts (725405629). Cholecystectomy (96954580). Decompression of ulnar nerve (350725987). Comments: 04/16/2024 10:03 MARZENA Shrestha RN, Kevin Guerra left side Social History Electronic [...] Oriented. Review / Management Laboratory Results Plan [employer] (ASA) physical status classification: Class III. Anesthetic Preoperative Plan Anesthesia: Monitored anesthesia care. Anesthetic plan, risks, benefits, and alternatives discussed with the patient and/or family. Patient verbalized understanding. Informed consent was given. Consent was signed by the patient. [Electronically Signed on: 06/17/2024 10:14 EDT] ____ Olivier Lares MD [Verified on: 10 (more content not included)... Normal [facility] Inpatient Patient Summaryon 06-17-2024 [place] [address] Patient Discharge Instructions Name: CARISSA SANTOS : 1980 Patient Address: [address] [place] [address] Primary Care Provider: Name: DIAZ DALTON After you are discharged if you find you have any questions, please, call [phone] ext [phone] to speak to a nurse. Discharge Diagnosis: Carpal tunnel syndrome, right Prescription Information: If you have been given a prescription for narcotics, seek immediate medical attention if you have any difficulty breathing or any sudden status changes such as confusion and sleepiness. If you or anyone you know is experiencing suicidal thoughts, mental health, alcohol and/or drug addiction problems; contact the [facility] 27/03 Crisis Hotline -Text 4HOPE to 287313. If you received any narcotics, sedation, or [...] business decisions or sign any legal documents [facility] would like to thank you for allowing us to assist you with your healthcare needs. The following includes patient education materials and information regarding your injury/illness. CARISSA SANTOS has been given the following list of follow-up instructions, prescriptions, and patient education materials: Follow-up Instructions With: Address: When: [address] [place] [address] Business (1) 06/24/2024 10:15 AM Medications During [...] every day. Durable Medical Equipment for Prescription (Next 1 Interactive CRYSTAL SENSOR 14D) APPLY 1 SENSOR TO BACK OF UPPER ARM. REMOVE AND REPLACE EVERY 14 DAYS. fluticasone/umecli dinium/vilanterol (Trelegy Ellipta 200 mcg-62.5 mcg-25 mcg/inh inhalation [...] mg oral (more content not included)... [facility] Recordon 1 MAGR Preoperative Record MAGR Pre-Op Record Summary Primary Physician: Arianna Miller DO Finalized Date/Time: 06/17/24 13:04:23 Pt. Name: CARISSA SANTOS /Sex: 1980 FEMALE Med Rec #: [id number] Physician: Arianna Miller DO Financial #: [id number] Pt. Type: D Room/Bed: / Admit/Disch: 06/17/24 [...] Signed By: Jennyfer Gresham RN 06/17/24 13:04 [facility] POCT Glucose Levelon 024 Glucose [Mass/Vol] 43 mg/dL Critically abnormal 74-118 [facility] Comment on above: Result Comment: OPR_ ID=[email or web address],TGC FLAG = False,Meter:[id number] Inspecting Machine Adjuster:oJjo Dangelo Performed By: #### 4 [id number] ####[facility] (DEFAULT)[address] [place] [address] Patient Handouton 06-17-[address] MILLER'S POST OPERATIVE CARPAL TUNNEL INSTRUCTIONS: SURGEON'S WRITTEN INSTRUCTIONS: 1. Keep your hand elevated above your elbow for the first 24 hours after surgery. 2. Wiggle your fingers frequently while awake. 3. DO NOT lift heavy objects or beef boner forcefully with your hand. 4. Change your [...] or concerns, please call the office at [phone]. 7. Follow up as scheduled. [facility] Progress Note - Nurseon 06-04 Progress Note - Nurse Pre-op call made- pt given arrival time of 0800 on 06-17-2024. 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 [Electronically Signed on: 06/14/2024 10:52 EDT] ____ Margaret Cuellar RN [Verified on: 06/14/2024 10:52 EDT] ____ Margaret Cuellar RN, Dr concerned whether pt has hold her Mounjaro medication for a week- pt recalled and pt stated that last dose of her Mounjaro was on 06-03-2024. [Electronically Signed on: 06/14/2024 11:05 EDT] ____ Margaret Cuellar RN [facility] Progress Note - Martha - Progress Note - Nurse Dr Flores reviews pt clearance and states that a new PAT is not necessary. [Electronically Signed on: 05/31/2024 11:43 EDT] ____ Kalyani Ortiz RN [Verified on: 05/31/2024 11:43 EDT] ____ Kalyani Ortiz RN [facility] HGB A1C (GLYCO-HGB)on 2023 Glucose [Mass/Vol] 324 mg/dL Normal [facility] Comment on above: Performed By: #### H A1C #### [facility] ([id number]) [address] [place] [address], [address] [place] [address] HbA1c (Bld) [Mass fraction] 12.9 % High 4.4-5.6 [facility] Comment on above: Result Comment: NOTE ADA Guidelines Result HgbA1c Normal : less than 5.7 % Prediabetes : 5.7 % to 6.4 % Diabetes : > 6.4 % Use with caution in patients with abnormal hemoglobin variants as the half-life of red blood cells and in vivo glycation rates are affected. Performed By: #### H A1C #### [facility] ([id number]) [address] [place] [address], [address] [place] [address] XR KNEE RT 3 VWSon 4 XR KNEE RT 3 VWS XR KNEE RT 3 VWS CLINICAL INFORMATION: pain, fall TECHNIQUE: XR KNEE RT 3 VWS 3 views right knee were obtained. There is no acute osseous abnormality. No fractures seen. No malalignment. IMPRESSION: No acute findings. 46 Finalized by Dustin Hernandez MD on 05/16/2024 10:29 AM Normal [facility] Coding Summaryon 04-30-2024 Coding Summary HTMLBase 64 UupaifqjGGo4nTv+PG hlYWQ+UB4IYDLnQ90o dFTuwV3sZ1GGSDfOYo wgQVBQTElOSyIgbmFt RX3afUIkWBSt IC8+CO1jTKAgAbgrgB Ygy8T4lFM3Q99zfg5w NYjbtVI2IAXhRcUcjy hac9jfjQh7BJubKppt OyBt OCSndH51ICD1qF72Jq 88rYWsrYHct3hcuXw2 PhEtMFPsJCN0eXctEV ibm2HeDQZyN98xySLz c2U6 IGNvbGxhcHNlOyBlbX K0jU8sVYvklqnhf6hl mllbRrf7sy78pMYrh5 P6aCA8F4UmqgO0OCKe bGQg OyrqpGFQzJ9kmrofq1 xvcjogIzAwMDAwMDt0 OMv3RMEhhFcrGtFcDX 47OOB7QHAuyuHdS2Ko LWFs tCeyQuH6x5U1Ha5TV6 ZMBqrzJ2SWAJQDNWaq dGQ+LB63gs82W7JzYc dqZcs4MHDhPAQ0nTM2 aD0n QZKlUCzux5Y9hJD5V5 EmqzEbak3ws3lyAYPg HPfjR94gbRWfx0C4ZD ZxnHM3AOHqrKvhYuSm aG93 Oyc+GDDhjYbqa1BmUw hmp1tyq6pehPy1Qreq LPAfmkGfsVylGGY3p8 GoFy9nGBIunSZ2yZY2 aD0i NvUsSnN7CGpxX978Rt IvjSYoGrqvD99cC6Fw dXA+TDJgTrb6NYDspQ moRW3vV6NcYUSteusa bGVm jDwuWV6dJFIgwpukVJ PjbE0rRLYbP1b0OmIj LrQ2EIsdI5MyCIItaw ziCd33jU5xLmRzUkG2 MGlu U8ZdauI9ZBWjfLZiXD taDBK4H30jr4C7GPXe EPEtYSR0wCP3sN2hrJ lnbjogbGVmdDsgdmVy dGlj AAyoJHvyM911QXRvtE snPkNvZGluZyBEYXRl OiAgMDgvMjcvMjAyND wvdGQ+ULPnCMD0tGcn PSAn lODoBFyhAg2nsTewcR wrAI0jCNTjuswyGONq dW8kKAQqeFNiqGlyVC 8sQDYqonmyt666DiCy MHB0 RBCrrECpX1UfmH0iQq GlIDQaSNGnA7NvmXMz JOxhI091RQkbHnL8PK NhzlIyI9SyZIUvjInq OiB0 p7Q3Dy9Gh5DtibucY0 RhdHVzOiAgRmluYWw8 O9EjLkhwyZD+PC90YW WvMP87IFk1ITU3cZex PSdi WNUlS6QehN0tBcOvCL RkZGRkOyc+PHRhYmxl IHdpZHRoPScxMDAlJy VruEcdBQ1mIm6wXLNi LWNv iEzduZUpDjXyy3nbRB AeAVmcTB7axLonN6Wt kQQ3ORWvl7b0Sz87B7 6jK9RzkTE+PGNvbCB3 aWR0 bK3vEuHjWkO2BNcnO0 42UaHijWEbRwlyl7hc v9zvkTz4PhH8LGZfoe SrzWxxWOD2k4QwAl82 Y29s IHdpZHRoPSIxNSUiIH QoxEdzrh2guX2yQc2+ CKCdkRC5tNW0lA6cLx ZzQnV9TOjzP877JgZv cCIv Jrsyl7czd9jrqJj8Yv IwJSIgdmFsaWduPSJ0 p4MlCs81P1ZavHwlu8 DwSpl1gk90lTUjj6P0 bGU9 G6CsTPPkqvkwlUOjpY jbOL4aNRPykyqqRKPz sQ4sKERuA7m2OrJeVc N4PUtmZ2YbqgE9RZUv bGQg DNYtnHENuO4zbvpec7 xvcjogIzAwMDAwMDt0 CEh7BZWrfEybUqBqJW J7XxI4SGI1qGImyJ1a bGln oumpbK2pYcs+UGF0aW WgiEUTCY2wAgkvuYF+ TIQeUIO2jJkpDKikQY WwlJ1eEALbV8n4BqMj LjA1 OPxrL3UqskH9APDhiE WiUYUpuLNDpM6tkuyu d3ewktppEfCdYIJuDZ j3WXb3PVHdqWohNiZt ZWZ0 AoQ1FHR2gPLroM7geO nvftvnlY5fAds+Qmly oMupGDN0GKm9X5DeTz v4LRMldKkcWW2zzNJj ZGlu Mb1quJoggDuzUR1vUG Ihsfyry534BtQos3zf QLJxvZDwBThvOFW2W4 6ud3J9ASSaJOByEDG6 dGV4 gX3scVigupkotACmoY sgdmVydGljYWwtYWxp F725ZLXbwIunKjPhHZ m2N7RxCxu5NYRvnSbg ZT0n nINiASvaDn7vyAvncE clDA6nJFBykftle990 VgYco7jtYKXzyZItFW gdBIS1A93tt5G1GWAv MDAw IGC8eZI9vD5dhQmgvo ogbGVmdDsgdmVydGlj WDxaAAcaM601WZHbeC cfRjPuhTs1C8TfStu1 ZCBz xJlkZO9qjRNsJIayEz 5voYuogTwgMV5mSIUk hygrx572SnQmk3pzJR GrnUWkCVstQIK4V36i b3I6 SYNmLTTtZVL8nIO5qB 1hbGlnbjogbGVmdDsg dmVydGljYWwtYWxpZ2 46IHRvcDsnPlBhdGll bnQg IIorKQu9H2KtJtsbsS I+WE08NRVbKA88sDSz kGWvr9uchOt9PfRhPN TkWTZ7uDvzNNmxn5Df ZXIt I43daRDyn0Y9HISnwE eboKJdGjJltSJ6kU4p CGjyxzyhb6rdluxiHw iwd7fwbo54dL32U09x IHdp ZHRoPSIzMCUiIHZhbG gfer6psA0mOt2+PGNv fGB8rZM0kA9bRVFnSo P1DAamB512ViYtzXCy Pjxj l5idb2gqpBl4NxV9EV SjwpUzcBjgREG3h8Ah Oi13E99nPRpnHDFeHW LaRKTfZSWhmJihbh4u dG9w Ii8+ODLqxKV8gAQ3bO 8cIfHlZfL6WKfeQ089 NzKkxHSfTsuiR88kM4 JvdXA+GDMqUiw4VIYp dHls MT1wwHIuUUelQk0bXC D4CnIySmHfNGbdX3Pq YNNlsniyiaqdpVG4FW AmCCMumV21Di5njJhg MTBw sJTBgP0obxbyz4whlp gzRrAqWXEqZAa7DCm7 MCAmzXnyKiDvZJQ8Dc Y1HEK5wKImxX6vwUhn bjog kN3sK2MeEZZldqkhUh 67iZ7pVkWnAqM9VXfd Oyc+UMGZZI8OXLUVIW FEKOroGt0MIAewbNC+ PHRk MQG1hAchBIriEFMbwQ 8hVSCxO9d7XoRbHlY3 EYpaG0XqSAYlbtsePg 46fE0xXjNpCnT4AVsn O2Zv ziG2DGBcjEAlTJrpUM J7A45pb1E3ZASuOWZt QSQ6zVQ0hI1oeUjtco ogbGVmdDsgdmVydGlj YWwt CZcmT149TTMalInoDt OgGoJ7JiF1Mgx8O1Dj Mai0XVWqfAwnEI1zlL LhIOstFx9pmIdyqIjf MC4w VSXxryvtKITysM3kGE WwjQPcyMkxHY3cUVPa uvbhx239ZvLsUOB2WL TncLCoQ8CntY9hXkNw MDAw OVGpQ0OnqTCoALacB3 03HUsvKnQ0MEFunrUt A6DlYXYmjPxpQmS0u2 I3Hk38JQZBFDXwjpii dGQ+ WWWtFDG3rHroMViyVP WhwB9qYBTfK3y4OpLz HmS2UMcwG6FxRGBszm hqFf73mU9rGmVkJuR9 MGlu A3AkhhX5TBVwaXCgTD quTLB6A75bs0D4UZRr PFFoFSS4qWA0wC4ojT lnbjogbGVmdDsgdmVy dGlj CKbtKFmdT870PHZijK snPkZFTUFMRTwvdGQ+ TFRjQDO5tYizYUdiWM CahT0hDCZoD8g0QuJp LjA1 YCafL3FsUFDcjmtoCs 70xE7nTeNvNxF0UScz M6QyccY7ZRDrcHOmHX ouLPJ3B84hs7J6CMVr MDAw AJL9eBW6wP2mcEmvwj ogbGVmdDsgdmVydGlj LXbtCTisD910TVNvmZ nhIw2JOB71YL86E8So Pjwv dGFibGU+PHRhYmxlIH dpZHRoPScxMDAlJyBz rEgaZR1hUo0cHWYjJO JeeAvctAZbZqZhd4fi YXBz LMclVT0tkUqaD4LtoM W2PQPzb1n8Uk49B01x F2VbrCE+XICbsSE5aX F2iG9iAsWnCkM6UUcg Z249 HzOvcEUgHxlfo1dcs0 kjlYw1JwBtDHWcccUc hBylBEY1c9HfGs57I3 9sIHdpZHRoPSIyMCUi IHZh bNtiez4gmI7hNx1+PG FooBD0gCH3dW4hHdVq DmW8GOgnD167FmCkoR LjTnfbF58mQ1YnuVT+ PHRy Nuq5WVBvbJieNV4rnE XfVXeyQa0nKPI9XhGi GkXyWWjmD3RcTVWyqd mrobqynRV5PAXfIDDt aW47 Pc1hyJogTz2tJCPdIZ L2CMEhvMCpC8EsjM3p PsJcQIDxZDXtY2YmqP QlBXejM339BJpmUwY4 IHZl riMlF2SbBYRngUebMw E3p9R2Fb5OvJjobXWm QN1wCzYcLAz9N8FrNm a0AQRnzCgvQY2weMLy ZGlu Ha7qiWmwuUxnJS0zDJ Kzejlka097ZlPvj0zy AUDfwHCvKIhbHYC3B2 1bq2E5ZZOmMOJoQBD7 dGV4 yO4nqUlufekjvNGrdR sgdmVydGljYWwtYWxp A550XKArbJadYtMFWx o2P2XhSre4JITueKoa ZT0n jYPsBHeqJv0ljNnkdX ckAN4dFVYladbex821 InGno4lqLVPdkJAyDO hzBUN2R60jl4O6WDDq MDAw YCF4uGF1qY4heQhksx ogbGVmdDsgdmVydGlj HChrVKcdW923ZUBdkV aeWi8QLbq9C3JaKzx0 ZCBz cHphEG2kpOHkJHyxRw 5nqBjukJpiNX4yMTPg xqyrk450SaOsr4joWX ArmXPxRSkwXDV3Z09g b3I6 OYBhNWFmEHU1bJF5sW 1hbGlnbjogbGVmdDsg dmVydGljYWwtYWxpZ2 46IHRvcDsnPlBheWVy Ojwv dGQ+SV68ip93A7HoYj dfUlr8LHIbUHD3tDV9 iO4sZLVrSJoja6R3iJ V3X3SsjmEmsf3ln3vx YXBz ZTo (more content not included)... Normal [facility] CT CHEST W CONTon 04-24-2024 CT CHEST [...] 2. Stable 1.2 cm paratracheal lymph node. 40 Finalized by Jose Connors MD on 04/24/2024 8:48 PM Normal [facility] CREATININEon 04-22-2024 Creatinine [Mass/Vol] 0.78 mg/dL Normal 0.40-1.00 [facility] Comment on above: Result Comment: METH OD TRACEABLE TO IDMS STANDARD Performed By: #### C RT #### [facility] ([id number]) [address], [address] [place] [address] eGFR (CKD-EPI) NON-RACE DEPENDENT >90 Normal >59 [facility] Comment on above: Result Comment: Reported eGFR is based on the CKD-EPI 2020 equation that does not use a race coefficient. Performed By: #### C RT #### [facility] ([id number]) [address], [address] [place] [address] Progress Note - Nurseon 04-04 Progress Note - Nurse School Psychology Professor spoke with Adriane at Dr. Jones office and informed her that per Dr. Barrett pt will need an echo to evaluate for pulmonary HTN before her surgery. Adriane verbalizes understanding. [Electronically Signed on: 04/18/2024 15:41 EDT] ____ Jennyfer Gresham RN [Verified on: 04/18/2024 15:41 EDT] ____ Jennyfer Gresham RN [facility] Progress Note - Nurse Dr Barrett reviewed PAT information. Per Dr. Barrett pt needs echo as recommended by pulmonology to evaluate for Pulmonary HTN. Waiting to hear back from Dr. Jones office to inform them of need for echo. [Electronically Signed on: 04/18/2024 15:20 EDT] ____ Jennyfer Gresham RN [Verified on: 04/18/2024 15:20 EDT] ____ Jennyfer Gresham RN [facility] .Auto Diff 1on 04-16-2024 Auto Fleming % 6 % Normal 09-15 [facility] Comment on above: Performed By: #### 1 [id number], [id number], [id number] ####[facility] (DEFAULT)[address] [place] [address] Baso Abs# 0.0 x10 Normal 0.0-0.2 [facility] Comment on above: Performed By: #### 1 [id number], [id number], [id number] ####[facility] (DEFAULT)[address] [place] [address] Basophils/100 WBC (Bld) 0.5 % Normal 0.2-2.0 [facility] Comment on above: Performed By: #### 1 [id number], [id number], [id number] ####[facility] (DEFAULT)[address] [place] [address] 65537 Eos Abs# 0.1 x10 Normal 0.0-0.4 [facility] Comment on above: Performed By: #### 1 [id number], [id number], [id number] ####[facility] (DEFAULT)[address] [place] [address] 78982 Eosinophils/100 WBC (Bld) 1.4 % Normal 0.9-4.0 [facility] Comment on above: Performed By: #### 1 [id number], [id number], [id number] ####[facility] (DEFAULT)[address] [place] [address]29 Lymph Abs# 1.9 x10 Normal 1.3-2.9 [facility] Comment on above: Performed By: #### 1 [id number], [id number], [id number] ####[facility] (DEFAULT)[address] [place] [address] 83631 Lymphocytes/100 WBC (Bld) 37 % Normal 14-48 [facility] Comment on above: Performed By: #### 1 [id number], [id number], [id number] ####[facility] (DEFAULT)[address] [place] [address]95 Fleming Abs# 0.3 x10 Normal 0.0-0.8 [facility] Comment on above: Performed By: #### 1 [id number], [id number], [id number] ####[facility] (DEFAULT)[address] [place] [address] 79233 Neut Abs# 2.8 x10 Normal 1.5-9.2 [facility] Comment on above: Performed By: #### 1 [id number], [id number], [id number] ####[facility] (DEFAULT)[address] [place] [address]22 Neutrophils/100 WBC (Bld) 55 % Normal 44-88 [facility] Comment on above: Performed By: #### 1 [id number], [id number], [id number] ####[facility] (DEFAULT)[address] [place] [address] 66460 BMP Standardon 04-16-2024 eGFR Non AA >60 Invalid Interpretation Code [facility] Comment on above: Performed By: #### 1 [id number], [id number], [id number] ####[facility] (DEFAULT)[address] [place] [address] 61741 eGFR AA >60 Invalid Interpretation Code [facility] Comment on above: Performed By: #### 1 [id number], [id number], [id number] ####[facility] (DEFAULT)[address] [place] [address] 05180 Anion gap [Moles/Vol] 11.4 mmol/L Normal 5.0-19.0 [facility] Comment on above: Performed By: #### 1 [id number], [id number], [id number] ####[facility] (DEFAULT)[address] [place] [address] 32993 Calcium [Mass/Vol] 8.7 mg/dL Low 8.9-10.3 [facility] Comment on above: Performed By: #### 1 [id number], [id number], [id number] ####[facility] (DEFAULT)[address] [place] [address] 02078 Chloride [Moles/Vol] 100 mmol/L Low 101-111 [facility] Comment on above: Performed By: #### 1 [id number], [id number], [id number] ####[facility] (DEFAULT)[address] [place] [address] 95843 CO2 [Moles/Vol] 27 mmol/L Normal 21-32 [facility] Comment on above: Performed By: #### 1 [id number], [id number], [id number] ####[facility] (DEFAULT)[address] [place] [address] 97858 Creatinine [Mass/Vol] 0.73 mg/dL Normal 0.60-1.30 [facility] Comment on above: Performed By: #### 1 [id number], [id number], [id number] ####[facility] (DEFAULT)[address] [place] [address] 44816 Glucose [Mass/Vol] 249.0 mg/dL High 74.0-118.0 [facility] Comment on above: Performed By: #### 1 [id number], [id number], [id number] ####[facility] (DEFAULT)[address] [place] [address] 57255 Osmolality 279 mOsm/L Invalid Interpretation Code [facility] Comment on above: Performed By: #### 1 [id number], [id number], [id number] ####[facility] (DEFAULT)[address] [place] [address] 46724 Potassium [Moles/Vol] 4.4 mmol/L Normal 3.6-5.1 [facility] Comment on above: Performed By: #### 1 [id number], [id number], 7120520 ####[facility] (DEFAULT)[address] [place] [address] 53633 Sodium [Moles/Vol] 134.0 mmol/L Low 136.0-144.0 [facility] Comment on above: Performed By: #### 1 [id number], [id number], [id number] ####[facility] (DEFAULT)[address] [place] [address] 69511 Urea nitrogen [Mass/Vol] 20 mg/dL Normal 8-26 [facility] Comment on above: Performed By: #### 1 [id number], [id number], [id number] ####[facility] (DEFAULT)[address] [place] [address] 43045 Urea nitrogen/Creatinine [Mass ratio] 27.3 mg/mg High 4.6-16.2 [facility] Comment on above: Performed By: #### 1 [id number], [id number], [id number] ####[facility] (DEFAULT)[address] [place] [address] CBC w/ Auto Diffon Erythrocyte distribution width (RBC) [Ratio] 13.9 % Normal 11.5-15.0 [facility] Comment on above: Performed By: #### 1 [id number], [id number], 9687905 ####[facility] (DEFAULT)[address] [place] [address] Hematocrit (Bld) [Volume fraction] 43.1 % High 33.7-40.4 [facility] Comment on above: Performed By: #### 1 [id number], [id number], [id number] ####[facility] (DEFAULT)[address] [place] [address] Hemoglobin (Bld) [Mass/Vol] 14.0 g/dL Normal 11.3-15.9 [facility] Comment on above: Performed By: #### 1 [id number], [id number], [id number] ####[facility] (DEFAULT)[address] [place] [address] Man Diff? Auto Invalid Interpretation Code [facility] Comment on above: Performed By: #### 1 [id number], [id number], [id number] ####[facility] (DEFAULT)[address] [place] [address] 43812 MCH (RBC) [Entitic mass] 28 pg Normal 24-34 [facility] Comment on above: Performed By: #### 1 [id number], [id number], [id number] ####[facility] (DEFAULT)[address] [place] [address] 54180 MCHC (RBC) [Mass/Vol] 33 g/dL Normal 26-37 [facility] Comment on above: Performed By: #### 1 [id number], [id number], [id number] ####[facility] (DEFAULT)[address] [place] [address] 07867 MCV (RBC) [Entitic vol] 86 fL Normal 81-100 [facility] Comment on above: Performed By: #### 1 [id number], [id number], 7247045 ####[facility] (DEFAULT)[address] [place] [address] 23814 Platelet 204 x10 Normal 138-427 [facility] Comment on above: Performed By: #### 1 [id number], [id number], [id number] ####[facility] (DEFAULT)[address] [place] [address] 12923 Platelet mean volume (Bld) [Entitic vol] 7.4 fL Normal 6.3-10.2 [facility] Comment on above: Performed By: #### 1 [id number], [id number], [id number] ####[facility] (DEFAULT)[address] [place] [address] 27312 RBC 4.99 x10 Normal 3.70-5.30 [facility] Comment on above: Performed By: #### 1 [id number], [id number], 0408974 ####[facility] (DEFAULT)[address] [place] [address] 02889 WBC 5.1 x10 Normal 3.5-10.5 [facility] Comment on above: Performed By: #### 1 [id number], [id number], [id number] ####[facility] (DEFAULT)[address] [place] [address] 02493 HGB A1C (GLYCO-HGB)on 2023 Glucose [Mass/Vol] 229 mg/dL Normal [facility] Comment on above: Performed By: #### H A1C #### [facility] ([id number]) [address], [address] [place] [address] HbA1c (Bld) [Mass fraction] 9.6 % High 4.4-5.6 [facility] Comment on above: Result Comment: NOTE ADA Guidelines Result HgbA1c Normal : less than 5.7 % Prediabetes : 5.7 % to 6.4 % Diabetes : > 6.4 % Use with caution in patients with abnormal hemoglobin variants as the half-life of red blood cells and in vivo glycation rates are affected. Performed By: #### H A1C #### [facility] ([id number]) [address], [address] [place] [address] Bacteria identified Cx Nom ( U)on 12-23-2023 Interpretation and review of laboratory results Abnormal [facility] Service comment (Unsp spec) [Interp] >100,000 ORGANISMS/mL ESCHERICHIA COLI Abnormal [facility] Service comment (Unsp spec) [Interp] <10,000 ORGANISMS/mL NORMAL URO GENITAL MAYI [facility] Basic Metabolic Panelon 12-04 Anion gap [Moles/Vol] 8 mmol/L 5 - 15 mmol/L [facility] Calcium [Mass/Vol] 8.2 mg/dL Low 8.5 - 10.5 mg/dL [facility] Chloride [Moles/Vol] 104 mmol/L 98 - 109 mmol/L [facility] CO2 [Moles/Vol] 25 mmol/L 22 - 32 mmol/L [facility] Creatinine [Mass/Vol] 0.89 mg/dL 0.40 - 1.00 mg/dL [facility] Comment on above: METHOD TRACEABLE TO [employer] STANDARD eGFR (CKD-EPI)non-race dependent 82 - PINF [facility] Comment on above: Reported eGFR is based on the CKD-EPI 2020 equation that does not use a race coefficient. Glucose [Mass/Vol] 215 mg/dL High 65 - 99 mg/dL [facility] Interpretation and review of laboratory results Abnormal [facility] Potassium [Moles/Vol] 4.3 mmol/L 3.5 - 5.0 mmol/L [facility] Sodium [Moles/Vol] 137 mmol/L 134 - 146 mmol/L [facility] Urea nitrogen [Mass/Vol] 22 mg/dL 5 - 23 mg/dL [facility] CBC without diffon Erythrocyte distribution width (RBC) [Ratio] 13.8 % 11.5 - 15.0 % [facility] Hematocrit (Bld) [Volume fraction] 33.8 % Low 35 - 47 % [facility] Hemoglobin (Bld) [Mass/Vol] 11.5 g/dL Low 11.7 - 15.5 g/dL [facility] Interpretation and review of laboratory results Abnormal [facility] MCH (RBC) [Entitic mass] 29.2 pg 27 - 34 pg [facility] MCHC (RBC) [Mass/Vol] 34.0 g/dL 32 - 36 g/dL [facility] MCV (RBC) [Entitic vol] 86 fL 80 - 100 fL [facility] Platelet mean volume (Bld) [Entitic vol] 7.6 fL 7 - 12 fL [facility] Platelets (Bld) [#/Vol] 183 10*3/uL [facility] RBC (Bld) [#/Vol] 3.94 10*6/uL [facility] WBC corrected for nucl RBC Auto (Bld) [#/Vol] 4.0 [facility] Glucose Glucometer (BldC) [M ass/Vol]on 12-23-2023 Glucose [Mass/Vol] 309 mg/dL High 65 - 99 mg/dL [facility] Interpretation and review of laboratory results Abnormal [facility] Glucose [Mass/Vol] 236 mg/dL High 65 - 99 mg/dL [facility] Interpretation and review of laboratory results Abnormal [facility] Magnesiumon 12-23-2023 Magnesium [Mass/Vol] 2.0 mg/dL 1.8 - 2.6 mg/dL [facility] No Panel Informationon 12-22 [facility] Basic Metabolic Panelon 12-03 Anion gap [Moles/Vol] 10 mmol/L 5 - 15 mmol/L [facility] Calcium [Mass/Vol] 8.3 mg/dL Low 8.5 - 10.5 mg/dL [facility] Chloride [Moles/Vol] 100 mmol/L 98 - 109 mmol/L [facility] CO2 [Moles/Vol] 25 mmol/L 22 - 32 mmol/L [facility] Creatinine [Mass/Vol] 0.87 mg/dL 0.40 - 1.00 mg/dL [facility] Comment on above: METHOD TRACEABLE TO [facility] STANDARD eGFR (CKD-EPI)non-race dependent 84 - PINF [facility] Comment on above: Reported eGFR is based on the CKD-EPI 2020 equation that does not use a race coefficient. Glucose [Mass/Vol] 301 mg/dL High 65 - 99 mg/dL [facility] Interpretation and review of laboratory results Abnormal [facility] Potassium [Moles/Vol] 4.0 mmol/L 3.5 - 5.0 mmol/L [facility] Sodium [Moles/Vol] 135 mmol/L 134 - 146 mmol/L [facility] Urea nitrogen [Mass/Vol] 28 mg/dL High 5 - 23 mg/dL [facility] CBC without diffon Erythrocyte distribution width (RBC) [Ratio] 13.4 % 11.5 - 15.0 % [facility] Hematocrit (Bld) [Volume fraction] 36.6 % 35 - 47 % [facility] Hemoglobin (Bld) [Mass/Vol] 12.3 g/dL 11.7 - 15.5 g/dL [facility] MCH (RBC) [Entitic mass] 28.9 pg 27 - 34 pg [facility] MCHC (RBC) [Mass/Vol] 33.6 g/dL 32 - 36 g/dL [facility] MCV (RBC) [Entitic vol] 86 fL 80 - 100 fL [facility] Platelet mean volume (Bld) [Entitic vol] 7.4 fL 7 - 12 fL [facility] Platelets (Bld) [#/Vol] 220 10*3/uL [facility] RBC (Bld) [#/Vol] 4.26 10*6/uL [facility] WBC corrected for nucl RBC Auto (Bld) [#/Vol] 5.1 [facility] Glucose Glucometer (BldC) [M ass/Vol]on 12-22-2023 Glucose [Mass/Vol] 283 mg/dL High 65 - 99 mg/dL [facility] Glucose [Mass/Vol] 269 mg/dL High 65 - 99 mg/dL [facility] Interpretation and review of laboratory results Abnormal [facility] Glucose [Mass/Vol] 402 mg/dL Critically high 65 - 99 mg/d L [facility] Interpretation and review of laboratory results Abnormal [facility] Glucose [Mass/Vol] 325 mg/dL High 65 - 99 mg/dL [facility] Interpretation and review of laboratory results Abnormal [facility] Magnesiumon 12-22-2023 Magnesium [Mass/Vol] 1.9 mg/dL 1.8 - 2.6 mg/dL [facility] No Panel Informationon 12-21 [facility] Basic Metabolic Panelon 12-03 Anion gap [Moles/Vol] 9 mmol/L 5 - 15 mmol/L [facility] Calcium [Mass/Vol] 8.7 mg/dL 8.5 - 10.5 mg/dL [facility] Chloride [Moles/Vol] 96 mmol/L Low 98 - 109 mmol/L [facility] CO2 [Moles/Vol] 29 mmol/L 22 - 32 mmol/L [facility] Creatinine [Mass/Vol] 0.80 mg/dL 0.40 - 1.00 mg/dL [facility] Comment on above: METHOD TRACEABLE TO [employer] STANDARD eGFR (CKD-EPI)non-race dependent - PINF [facility] Comment on above: Reported eGFR is based on the CKD-EPI 2020 equation that does not use a race coefficient. Glucose [Mass/Vol] 340 mg/dL High 65 - 99 mg/dL [facility] Interpretation and review of laboratory results Abnormal [facility] Potassium [Moles/Vol] 4.2 mmol/L 3.5 - 5.0 mmol/L [facility] Sodium [Moles/Vol] 134 mmol/L 134 - 146 mmol/L [facility] Urea nitrogen [Mass/Vol] 27 mg/dL High 5 - 23 mg/dL [facility] CBC without diffon Erythrocyte distribution width (RBC) [Ratio] 13.2 % 11.5 - 15.0 % [facility] Hematocrit (Bld) [Volume fraction] 36.6 % 35 - 47 % [facility] Hemoglobin (Bld) [Mass/Vol] 12.6 g/dL 11.7 - 15.5 g/dL [facility] MCH (RBC) [Entitic mass] 29.0 pg 27 - 34 pg [facility] MCHC (RBC) [Mass/Vol] 34.3 g/dL 32 - 36 g/dL [facility] MCV (RBC) [Entitic vol] 85 fL 80 - 100 fL [facility] Platelet mean volume (Bld) [Entitic vol] 7.3 fL 7 - 12 fL [facility] Platelets (Bld) [#/Vol] 213 10*3/uL [facility] RBC (Bld) [#/Vol] 4.33 10*6/uL [facility] WBC corrected for nucl RBC Auto (Bld) [#/Vol] 5.0 [facility] Glucose Glucometer (BldC) [M ass/Vol]on 12-21-2023 Glucose [Mass/Vol] 363 mg/dL High 65 - 99 mg/dL [facility] Interpretation and review of laboratory results Abnormal [facility] Glucose [Mass/Vol] 323 mg/dL High 65 - 99 mg/dL [facility] Interpretation and review of laboratory results Abnormal [facility] Glucose [Mass/Vol] 307 mg/dL High 65 - 99 mg/dL [facility] Interpretation and review of laboratory results Abnormal [facility] Glucose [Mass/Vol]on 024 Interpretation and review of laboratory results Abnormal [facility] Glucose random or fastingon 12-21-2023 Glucose [Mass/Vol] 409 mg/dL Critically high 65 - 99 mg/d L [facility] Magnesiumon 12-21-2023 Magnesium [Mass/Vol] 1.9 mg/dL 1.8 - 2.6 mg/dL [facility] No Panel Informationon 12-20 [facility] Acetone, (BetaHydroxybutyrat e, Ketone) quantitative, serumon 12-20-2023 Beta hydroxybutyrate [Moles/Vol] 0.14 mmol/L 0.02 - 0.27 mmol/L [facility] Beta hydroxybutyrate [Moles/ Vol]on 12-20-2023 [facility] CBC auto differentialon 12-03 Basophils (Bld) [#/Vol] 0.0 10*3/uL [facility] Basophils/100 WBC (Bld) 0.5 % [facility] Eosinophils (Bld) [#/Vol] 0.1 10*3/uL [facility] Eosinophils/100 WBC (Bld) 1.1 % [facility] Erythrocyte distribution width (RBC) [Ratio] 13.6 % 11.5 - 15.0 % [facility] Hematocrit (Bld) [Volume fraction] 40.4 % 35 - 47 % [facility] Hemoglobin (Bld) [Mass/Vol] 13.2 g/dL 11.7 - 15.5 g/dL [facility] Lymphocytes (Bld) [#/Vol] 2.3 10*3/uL [facility] Lymphocytes/100 WBC (Bld) 37.6 % [facility] MCH (RBC) [Entitic mass] 28.8 pg 27 - 34 pg [facility] MCHC (RBC) [Mass/Vol] 32.8 g/dL 32 - 36 g/dL [facility] MCV (RBC) [Entitic vol] 88 fL 80 - 100 fL [facility] Monocytes (Bld) [#/Vol] 0.4 10*3/uL [facility] Monocytes/100 WBC (Bld) 6.3 % [facility] Neutrophils (Bld) [#/Vol] 3.3 10*3/uL [facility] Neutrophils/100 WBC (Bld) 54.5 % [facility] Platelet mean volume (Bld) [Entitic vol] 7.6 fL 7 - 12 fL [facility] Platelets (Bld) [#/Vol] 227 10*3/uL [facility] RBC (Bld) [#/Vol] 4.60 10*6/uL [facility] WBC corrected for nucl RBC Auto (Bld) [#/Vol] 6.[address] [facility] Comprehensive metabolic pane rodriguez 12-20-2023 Albumin [Mass/Vol] 3.4 g/dL 3.2 - 5.3 g/dL [facility] ALP [Catalytic activity/Vol] 91 U/L 39 - 130 U/L [facility] ALT No additional P-5'-P [Catalytic activity/Vol] 23 U/L 0 - 31 U/L [facility] Anion gap [Moles/Vol] 12 mmol/L 5 - 15 mmol/L [facility] AST [Catalytic activity/Vol] 17 U/L 0 - 41 U/L [facility] Bilirubin [Mass/Vol] 0.4 mg/dL 0.3 - 1.2 mg/dL [facility] Calcium [Mass/Vol] 9.0 mg/dL 8.5 - 10.5 mg/dL [facility] Chloride [Moles/Vol] 87 mmol/L Low 98 - 109 mmol/L [facility] CO2 [Moles/Vol] 24 mmol/L 22 - 32 mmol/L [facility] Creatinine [Mass/Vol] 1.17 mg/dL High 0.40 - 1.00 mg/dL [facility] Comment on above: METHOD TRACEABLE TO [facility] STANDARD eGFR (CKD-EPI)non-race dependent 59 Low - PINF [facility] Comment on above: Reported eGFR is based on the CKD-EPI 2020 equation that does not use a race coefficient. Glucose [Mass/Vol] 928 mg/dL Critically high 65 - 99 mg/d L [facility] Interpretation and review of laboratory results Abnormal [facility] Potassium [Moles/Vol] 4.7 mmol/L 3.5 - 5.0 mmol/L [facility] Protein [Mass/Vol] 7.5 g/dL 6.0 - 8.0 g/dL [facility] Sodium [Moles/Vol] 123 mmol/L Low 134 - 146 mmol/L [facility] Urea nitrogen [Mass/Vol] 31 mg/dL High 5 - 23 mg/dL [facility] D-Dimeron 12-20-2023 Fibrin D-dimer DDU (PPP) [Mass/Vol] NINF [facility] Comment on above: Results <255 ng/mL DDU: The presence of a VTE can safely be excluded with a negative D-Dimer result and Wells score. A negative result doesn't exclude the possibility of DIC. The test be repeated along with other diagnostic tests if the patient's symptoms persist or worsen. [email or web address] ECG 12 leadon 12-20-2023 TRACEMASTERVUE [facility] Fibrin D-dimer DDU (PPP) [Ma ss/Vol]on 12-20-2023 [facility] Glucose Glucometer (BldC) [M ass/Vol]on 12-20-2023 Glucose [Mass/Vol] 350 mg/dL High 65 - 99 mg/dL [facility] Interpretation and review of laboratory results Abnormal [facility] Glucose [Mass/Vol] mg/dL Critically high 65 - 99 mg/d L [facility] Comment on above: SEE LAB RESULTS FOR CONFIRMATION Interpretation and review of laboratory results Abnormal [facility] Glucose [Mass/Vol] mg/dL Critically high 65 - 99 mg/d L [facility] Comment on above: SEE LAB RESULTS FOR CONFIRMATION Interpretation and review of laboratory results Abnormal [facility] Glucose [Mass/Vol] mg/dL Critically high 65 - 99 mg/d L [facility] Comment on above: SEE LAB RESULTS FOR CONFIRMATION Interpretation and review of laboratory results Abnormal [facility] Natriuretic peptide B [Mass/ Vol]on 12-20-2023 Natriuretic peptide B (Bld) [Mass/Vol] 10 pg/mL NINF - 100.0 pg/mL [facility] POCT Nursing Urine Macroscop ic UAon 12-20-2023 Bilirubin Ql (U) Negative Negative^Negative [facility] Glucose [Mass/Vol] mg/dL Abnormal Negative^ Negative mg/dL [facility] Hemoglobin Ql (U) Negative Negative^Negative [facility] Interpretation and review of laboratory results Abnormal [facility] Ketones (U) [Mass/Vol] Negative Negative^Negative mg/dL [facility] Leukocyte esterase Test strip Ql (U) Negative Negative^Negative [facility] Nitrite Ql (U) Positive Abnormal Negative^Negative [facility] pH (U) 5.0 [pH] 5.0 - 8.5 [facility] Protein Ql (U) Negative Negative^Nega tive mg/dL [facility] Specific gravity (U) [Rel density] <=1.005 1.003 - 1.035 [facility] Urobilinogen Qn (U) 0.2 NINF [facility] Troponin I, High Sensitivity on 12-20-2023 Troponin I.cardiac High sensitivity method [Mass/Vol] ng/L [facility] - 16 ng/L [facility] Troponin I, High Sensitivity 1 Houron 12-20-2023 Troponin I.cardiac High sensitivity method [Mass/Vol] 3 ng/L [facility] - 16 ng/L [facility] Troponin I.cardiac High sens itivity method [Mass/Vol]on 12-20-2023 [facility] XR Chest Single viewon 12-19 Single view chest History:sob Difficulty breathing, shortness of breath Comparison: 06/04/2023 Findings: Single portable view of the chest. Stable cardia mediastinal silhouette. No focal opacity, effusion or pneumothorax. Impression: No evidence of acute cardiac pulmonary process. 53 Finalized by Aliya Gan MD on 12/20/2023 5:35 PM ALDENRAAliya Dumont MD - 12/20/2023 Single view chest History:sob Difficulty breathing, shortness of breath Comparison: 06/04/2023 Findings: Single portable view of the chest. Stable cardia mediastinal silhouette. No focal opacity, effusion or pneumothorax. Impression: No evidence of acute cardiac pulmonary process. 53 Finalized by Aliya Gan MD on 12/20/2023 5:35 PM [facility] Radiology Study observation (narrative) [facility] XR Chest Single viewOrdered By: Aliya Gan on 12-20-2023 [facility] Work Phone: AFB CULTURE(CONCENTRATED)on 11-22-2023 Mycobacterium sp identified Org specific cx Nom (Unsp spec) AFB SMEAR NO ACID FAST BACILLI (CONCENTRATED SMEAR) CULTURE RESULTS NO ACID FAST BACILLI ISOLATED IN 8 WEEKS [facility] Comment on above: Performed By: #### 5 43-9 #### [facility] ([id number]) [address], [address] [place] [address] AFB CULTURE(DIRECT)on 2023 Mycobacterium sp identified Org specific cx Nom (Unsp spec) AFB SMEAR NO ACID FAST BACILLI (DIRECT SMEAR) CULTURE RESULTS NO ACID FAST BACILLI ISOLATED IN 8 WEEKS [facility] Comment on above: Performed By: #### 5 43-9 #### [facility] ([id number]) [address] [place] [address] ANAEROBE CULTUREon Bacteria identified Anaer cx Nom (Unsp spec) CULTURE RESULTS NO GROWTH 5 DAYS [facility] Comment on above: Performed By: #### B FCT #### [facility] ([id number]) [address] AND DIFFon 2023 BODY FLUID COMMENT Interpre tation-------- [facility] Comment on above: Result Comment: Refe rence values for this fluid type are undefined, as fluid accumulation is considered abnormal. Performed By: #### B FCT #### [facility] ([id number]) [address], [address] [place] [address] FLUID CLARITY CLEAR [facility] Comment on above: Performed By: #### B FCT #### [facility] ([id number]) [address], [address] [place] [address] FLUID COLOR COLORLESS [facility] Comment on above: Performed By: #### B FCT #### [facility] ([id number]) [address] [place] [address] FLUID LYMPHOCYTE 17 % Normal [facility] Comment on above: Performed By: #### B FCT #### [facility] ([id number]) [address] [place] [address] FLUID NEUTROPHILS 8 % Normal [facility] Comment on above: Performed By: #### B FCT #### [facility] ([id number]) [address], [address] [place] [address] 7 /uL [facility] Comment on above: Performed By: #### B FCT #### [facility] ([id number]) [address] [place] [address] FLUID SPECIMEN TYPE BRONCHOALVEOLAR LAVAGE [facility] Comment on above: Result Comment: RIGH T LUNG UPPER LOBE Performed By: #### B FCT #### [facility] ([id number]) [address] [place] [address] MACROPHAGES 75 % [facility] Comment on above: Performed By: #### B FCT #### [facility] ([id number]) [address] [place] [address] 9 /uL [facility] Comment on above: Performed By: #### B FCT #### [facility] ([id number]) [address] [place] [address] Cytologyon 11-22-2023 Cytology [facility] Comment on above: Result Comment: [facility] [address] [place] [address] Cytology Consultation Patient Name:CARISSA SANTOS:1980 (Age: 43)Gender:FTaken:11/22/2023eported:11/23/2023 17:47Physician(s):Libby Finley MD ([phone])Copy To: Rec. #:[id number]: #[id number] Final Cytologic Diagnosis 1. 4R node, endobronchial ultrasound-guided fine needle aspirate (8 smears, 1 ThinPrep): Lymphocytes are present consistent with lymph node. No malignant cells identified. 2. Right upper lobe lung bronchoalveolar lavage (1 ThinPrep, 2 H&E cell block): No malignant cells identified. gp/11/23/2023 Interpretation performed at [address] [address], License number: [id number].Electronically Signed Out By Irving Harris MD Additional [...] CD5, CD7, CD10, CD19, CD20, CD23, CD45, Churchill, and Lambda. Immunophenotyping Comment: Immunophenotyping has been used in this diagnostic evaluation. This test was developed and its performance characteristics determined by the [facility] Department. It has not been [...] lymph node. Dr. Harris Interpretation provided at [facility], [address] [facility], [place] [address]. Gross Description 1.Prepared in Endoscopy were 8 [...] 1: 4R node fine needle aspirate Non PRIVATE WATCHMAN ThinPrep, Slides Made x 8 2: Right upper lobe lung bronchoalveolar lavage Non PRIVATE WATCHMAN ThinPrep, Cell block for Non-rustic fence builder (M), Level 2 H&E Fee Code(s): 1; 97167, 76587, 26502(3), 12041 2; 14644, 37930 FUNGAL CULTUREon 11-22-2023 Fungus identified Cx Nom (Unsp spec) FUNGAL SMEAR NO FUNGAL ELEMENTS SEEN ON DIRECT SMEAR CULTURE RESULTS NO FUNGUS ISOLATED AFTER 4 WEEKS [facility] Comment on above: Performed By: #### 5 80-1 #### [facility] ([id number]) [address], [address] [place] [address] Fungus identified Cx Nom (Unsp spec) FUNGAL SMEAR NO FUNGAL ELEMENTS SEEN ON CONCENTRATED SMEAR CULTURE RESULTS NO FUNGUS ISOLATED AFTER 4 WEEKS [facility] Comment on above: Performed By: #### 5 80-1 #### [facility] ([id number]) [address] [place] [address] Flow cytometry specialist re view Dontrell (Unsp spec) [Interp]on 11-22-2023 FLOW CYTOMETRY TISSUE/FLUID, NON CSF/NON BAL SEE SEPARATE REPORT, REVIEWED BY PATHOLOGIST [facility] Comment on above: Performed By: #### 6 9052-9 #### [facility] ([id number]) [address] [place] [address] Glucose Glucometer (BldC) [M ass/Vol]on 11-22-2023 Glucose [Mass/Vol] 128 mg/dL High 65-99 [facility] LOWER RESPIRATORY CULTUREon 11-22-2023 Bacteria identified Respiratory culture Nom (Sput) GRAM STAIN 10 to 24 WHITE BLOOD CELLS/LPF 0 SQUAMOUS EPITHELIAL CELLS/LPF 0 CILIATED EPITHELIAL CELLS/LPF NO ORGANISMS SEEN CULTURE RESULTS RARE NORMAL ORAL MAYI [facility] Comment on above: Performed By: #### 6 24-7 #### [facility] ([id number]) [address] [place] [address], [address] [place] [address] TISSUE CULTUREon 11-22-2023 Bacteria identified Aer cx Nom (Tiss) GRAM STAIN 1 to 9 WHITE BLOOD CELLS/LPF 0 SQUAMOUS EPITHELIAL CELLS/LPF NO ORGANISMS SEEN CULTURE RESULTS NO GROWTH 5 DAYS [facility] Comment on above: Performed By: #### 6 27-0 #### [facility] ([id number]) [address] [place] [address], [address] [place] [id number] Coding Summaryon 11-02-2023 Coding Summary HTMLBase 64 LetwaeezDYc7zYt+PG hlYWQ+UM7PZDTmU39d iRNhyT8iB3QFGIgCDl wgQVBQTElOSyIgbmFt VW9pfVPlTQGt IC8+UL7tQWAeBautmC Gaq4S8uDB1E58crf5o GOiytWA8UHQkOhQvvo swg4auaXi4NDpfYvpm OyBt XVLkuE78QMU2eM04Zx 01cEYmnWPbp4ukoNo4 WjWnYRFhORU5kKulVI sfn0HhNDIoJ85wmYHp c2U6 IGNvbGxhcHNlOyBlbX E3qF3zNHmeqlull2fg rirpKjl5ir49gZJkr3 V0jCH7G6HoqeO2GCHq bGQg HrzctWCAvM5kcwcaj5 xvcjogIzAwMDAwMDt0 QCh2NBPmxXfnNsLaTY 95WOD7PIAesfEbI2Ce LWFs hDyiOoM5b2K2Ue8UN1 SMRmieH8OTJFXDWIep dGQ+IK61fk91V3XwWh ysByj2SFNnPCF3oBZ6 aD0n UGVbDAyzz7H0eEZ1Z5 IlngUnca8kq9itIAFt URmoX51qvOXqo3W4WJ CcvVT1SXJcdUzlUrNb aG93 Oyc+DCNlfGagx2XyAu rmv4nmn5huxHj1Atgg RWKnscDamKeqYWW1g4 BzRq9lRBDagTF6jBP7 aD0i KmTpTgA8DFriC208Nw RokHQcNunjS38nV4Ln dXA+GKTqMqq7JTNjmP qgYO5fI1EuLUIksmpx bGVm mKsaMT1sYXDzdftrJL CxwG2fDHLvH1j9OiOa CaP4YYtcX2XbSBUqxp fuXi41cM6gRaFfAgE2 MGlu M3VqvaW6CJYjzTQiIJ ppDZA4M07tv4N4AFBe WWHgPTL8aNY7xO4gsE lnbjogbGVmdDsgdmVy dGlj ZBkmKXoxA139YYLurY snPkNvZGluZyBEYXRl OiAgMDIvMjkvMjAyND wvdGQ+WVNfSVG7jRtg PSAn xUViJHczHt3ngUgjjB wqDT8eLPIjckmuWEQe iM6aOAXxkIPioPmpVZ 1yNFWgzjprd501PrAz MHB0 NCIccYUiV2CzbP3pMl ZuUQEeYWJiZ7EfjFTa KSjdV702JHpnIaQ6VD TtkaUxC4UwQZEqcGkj OiB0 j7Z3Co7Bl5LbcddsP7 RhdHVzOiAgRmluYWw8 N7NiVlhzrBK+PC90YW VpAI51UGw2WNB6kQng PSdi JDYiP4OamT1wNcVgRR RkZGRkOyc+PHRhYmxl IHdpZHRoPScxMDAlJy DsgQcrYP1pKf6mJSUk LWNv oFcywTXhJcCqd0vjPK OpZDekKU7snAivI9Hc dXN6VZVdz5n5Ba97U0 1gR2IriOU+PGNvbCB3 aWR0 aS9jZdChYyB9KAkdF9 68UnVcuYTxJmfnl1yk e3fevIe3FsM8BBNglv RrrRjwNPZ1k2TgAa39 Y29s IHdpZHRoPSIxNSUiIH KfaSdvqe5mqO1vOt9+ IIQmhUD9wPP6pC7tSc NqVcD8LBlrH069QcEx cCIv Ssfvu4zxu3pibCs6Qx IwJSIgdmFsaWduPSJ0 l2BoWi03E3ZkdFsec6 EoCto5zy88qWFjy5M4 bGU9 J5AnQWQmuawbzFJptY tvBM4gPNZqueepEBUh mD1nWWKqU3h7DwRtXw Y5SVeeY0ZnueU7IEQh bGQg JAQqzNRYgS9yymjyd7 xvcjogIzAwMDAwMDt0 TMk0SVNzgYftLrJsYH D2YyU1TLB6xPDnkR7q bGln jqelgX2vGlt+UGF0aW CerRQUAH6uOzltyRI+ RUOkXCW8dBrjBDgpNY BysW4hGXVlE9g4BiHl LjA1 BFnmE6QhfnR0IJFvvN SwDHPfiGTYyC7trkxz f2vsvjsrAzJqVBYeEM t6YNb0ATQndBwqLaSa ZWZ0 DxE4QRK2lGWflR5thX klfjmkqS7eFyy+Qmly fJpeDAT6APk1C2YkOe f4GDQqcLjiGI8lfPVd ZGlu Dk0pjHljyMioDX5aUU Ocvzqkc802BaZun9rc QEMigZBpWOgeBDS2T9 3xu9W1LXSqFORbXXE9 dGV4 hM8yeXpwcqkrnXVbdU sgdmVydGljYWwtYWxp N202NEWczVoaKhJqSW q8M6XhLuf7IHXreZyr ZT0n cOLqQHdsUs3rtIbuyK fmQX4qCCYocnjdb293 YiEtw6fsKHFsuQSsGZ utZIB0M87mk7X5CFAp MDAw XGN3wEA3mW0mrJulpv ogbGVmdDsgdmVydGlj GEhdAHnsO147MUFehD dlEyZwcLw9N8LtZpp8 ZCBz hFkrTY4kjVImAJzmTu 8vmLkjuFqdHT4fHZGd jurzn955PyJpa7iiCU HpoDVfQElmHLP0X39h b3I6 YHRcCYJlDMM5oQX6gX 1hbGlnbjogbGVmdDsg dmVydGljYWwtYWxpZ2 46IHRvcDsnPlBhdGll bnQg VLxdWOi7N7ErYfgvbL I+GT91VUWhJH29kZDx uKFuf2qnyGw8WxVaCH XsGWF2kRiqVMuht9Iz ZXIt U30wwEXti6H2SOPzhV fmaJDeXoZjmQM1mC7m ITarzoxut6zwurxxRg sve4dfad51uH92B65l IHdp ZHRoPSIzMCUiIHZhbG snaq8ofV9uTh7+PGNv sIF5fKY2fA9lSFFsZo I8YLfqJ167PzOasOAd Pjxj m7ovm0iysFg5ZvD1CO EesyAncTqyDZV9g9Dk Rq70T93yQCfeYDMlWY XnODXoGWVfoUccea4r dG9w Ii8+POYmhQB0xCZ3cY 4vDgShWxV7NYsiB953 RyRntFJaMwdtW45nX0 JvdXA+QZAxAil3TSPo dHls RP9ucYUmJBguAq8qSK K7NvNhNyCjRCtoW9Qe DNNwdpctedivjSC5NL ZqOMQgkS51Zv6rsIdo MTBw sBQSaA4jlygsa6fczc nlTbHsEXRfISe0QSf6 XFJifJzkWnUhNFN2Ph C8HTN6tWQpeJ6qnHsw bjog hB7wH2VdBHRjglquDg 86aT8oVqDeRjO6HNlm Oyc+HTHCEI7XXKQBXI QOALaeQz4HSVstiZO+ PHRk EBP1aVqsODxqDBBpbQ 1tDHKxD5l9GyAdDqU5 PZmnS6QpYHPqsipsUy 66fY7aZyXgDxD2CZeg O2Zv ohV5GNFqoANoRPikTO S8U69rk2M2CJDaVGBy PRT1dXU4pU2oaZertx ogbGVmdDsgdmVydGlj YWwt LEeeP437SHVnuTqfTr JbDnS1IbZ4Vwr9W7Gc Ktz4INSsgJlsKS2pgF LaDKgbPg9ywSeukEdc MC4w DTYcszruKHMhuN5dOI TwyKBsyXtuSE1hOXFp dyfxg224UtPiDYG8LA IylOVgZ5VrmL2nJbPd MDAw HLUyL2QyfSOsSKogE8 77WBvyEyU3FFOhxxZb L5JoZRPkjZxbZeX3o3 H3Bb58HHIYKXIedmhj dGQ+ STVbDUE3tMpsMJnwEB JnrE5rNXBgF6a0SfPi QhE5YHaaB2BjUZVkyl tdGu75qD0qCjChDiG9 MGlu P7DycdQ4TMNgyIEaOE kkCQE5N25gn4E8KZIl TGUpBTA8aVO8hW7sbC lnbjogbGVmdDsgdmVy dGlj UUqqQRerZ979JJBftF snPkZFTUFMRTwvdGQ+ NGIdILH1cBxqOZiyCG MgoF4mXFGmH3a5YzXf LjA1 FAgbB0LcAEXvbvkyOt 25vR9sGtYtJxR8WIab R7XenzS1ZOWkzKQyEZ uvRXJ2H72ib5B6RGGa MDAw HOX5mHJ1jW0bbZjshu ogbGVmdDsgdmVydGlj XCcaHHiyL667NNKgaI obGq9OEI07JC16P4Np Pjwv dGFibGU+PHRhYmxlIH dpZHRoPScxMDAlJyBz jOukIN0jJg3mBQGbNL LtfLtowBSnObIgj9mv YXBz ETfoJE8ioZwqW0UmjX P8GPXfk7q0Ix16Z06x R2LadCY+LVJknNA0pN P6kF7zNvLmHjF2RHiz Z249 YmZaoOJaThilz9hve2 mxqPh6JgHnMMBcxxFd jMjkGXX8r3UfEr08V3 9sIHdpZHRoPSIyMCUi IHZh kYvdtz6eyH6mJu9+PG GkvPS4qVF5vS5gExYm DmG9TQyuG125WnRuzW CtEaetD16qS9OokAJ+ PHRy Ndi3HUWvlCjeOT6phL BwCGahDd7aLMB6ElXc HwAiKKixJ2HuAFWwnb sdupyncFW2JDXwEIDm aW47 Nq5kbAqaPd4zKFReUS D8BCEgtFQwK6OztT6y KmGiDWHtFROnG0OayG BoYMceT710KAszOqP4 IHZl eoNmI4CeHBQexVoyEg K3e0M0Qt9CwMxddLMd JE6lOqXxJSz4I1QhBx h5BUPkrOqfEJ5ttZSt ZGlu Ak8esClziBxqIE4yMN Ynsvhoz708NgEgg3nr ZTFsoSYhODruCQJ9X4 4xr8Q1ZLCoDLViAJR5 dGV4 kF4weBrkxijdjLIyoH sgdmVydGljYWwtYWxp W589KHLebKnjXaJHSf j7Q6EjAsz2FUCeaXei ZT0n uUVxRMcbRq4xzMucfC ofYA5hZQKvextox070 TnXqf7kqXANttCTeWY gvHPV8B85yg4Q0QIVn MDAw MIT6uQW3oZ2tnRdxix ogbGVmdDsgdmVydGlj UEmtHLovA917UXUmpH cqBg2FVmi3F6LoJxz1 ZCBz aBdqLS4owJSvASpgOv 4euDksfLpmBV4eUILk kbpkr175TsMvv3isKP QdvAYvCSqtRCD8Z08l b3I6 OYQcTUIxSTR9uDM7uM 1hbGlnbjogbGVmdDsg dmVydGljYWwtYWxpZ2 46IHRvcDsnPlBheWVy Ojwv dGQ+NZ27ls17V3JyEj rvHrz7VNJjGDJ7kXK5 kC9xSIKlZIgwm7Y6rI M4N5CgioWffx8qc6cy YXBz ZTo (more content not included)... [facility] Coding Summaryon 10-04-2023 Coding Summary HTMLBase 64 MnvkvymrCJu0lYb+PG hlYWQ+OW2WNPJqT65q iXWwmF6vO0OOLIcVKy wgQVBQTElOSyIgbmFt RH9cvWDrJZNt IC8+OY2jMOFvBrpqvV Kqg0P8hZZ3G36joh4r DRoaiDE1BSSqWiMkfk arm3bgoOa0DUqcYxsi OyBt MTUypI46IFI8iV01Vb 29xPLccYUtx6lzrHk8 PfBrFPFeEHW5sNkuZE ory1VaGQIcC59qpFZd c2U6 IGNvbGxhcHNlOyBlbX O1iM0xIWjvzdumm1vf obrnLgg1sj93aRHaq9 H5mLV5T2ZowqE5DGHj bGQg FtaiwLLLgS3ozdyok9 xvcjogIzAwMDAwMDt0 CCr1SNSdzXlwLzAdON 38FMW5EABnupHlH4Hl LWFs aRzhSrU2k0G8Nm2ET0 OGVnpwP2QRXKTUEFms dGQ+BI73nk97F4XnFe htXxa2IUEdNDZ7aJC5 aD0n QPLlFJwwt4L1oGQ8J9 FrbnLwtc2qn0sjCWYx IOccT48htHCld7P8HE JrrWU5ACNyuTzvUrTf aG93 Oyc+APJbaUqdm5LuMi pjc5yop7nmoQh2Vluh ISWndmAvtZxnFVO4x4 WsPf4jXBPrpDW8sVL3 aD0i ZfVsDdZ3QVohY833Au GvvAGbIwlhR13uZ0Pg dXA+LUCkIjp4TBFcaW yeZQ2cO9NbXURxdtbg bGVm dAagLI2jTFYtpaihVO ByuF6uZBKqO3n6NkBp UfF7JClqF1LeBIBouo dxYx50dO0zMaEnPhU9 MGlu Q5ToytO2XWVnuJWzME ojUKH6O19dz5K8CFJp JZHuHDS7xMY5dB3bwQ lnbjogbGVmdDsgdmVy dGlj IWiyYUirO063SIEcaE snPkNvZGluZyBEYXRl OiAgMDEvMzEvMjAyND wvdGQ+DSKxRVW3nSak PSAn gZJsHEmbZv5ecGfdjF srTG8lVVHekjbeQWUd bN0bSEOnjKRvhVvkPK 5zCZWewisea544NzEy MHB0 UIRekBXuA6ZhiN2jVo PnJTTuFWCkW7EtsYWr BWlsE514GKglKzH8XC ZtfzDrC3DoIKAjpUxi OiB0 s0N7Ar4Qd1EhnohfF6 RhdHVzOiAgRmluYWw8 D5YdXgdkiGL+PC90YW DdVN70FRr6KXF1bYuw PSdi UAVlA9LbbR4tQnUpDI RkZGRkOyc+PHRhYmxl IHdpZHRoPScxMDAlJy YxuNlnIK9rPg1yEPGq LWNv bNcovMZtCyMdr7fzUU KeHWxeXD8pyGkbC6Ts kLM3GUNuc3d9Fb49C1 2gA8KftMD+PGNvbCB3 aWR0 cB1pNzLbMqW4NCcdQ0 08TyHqdHDaSvjzb0jh k8fyhLo1BnS0YRIsja PahImlMUY0b3XcSt53 Y29s IHdpZHRoPSIxNSUiIH DqrHtvag7auH8rAh1+ AEYcgRL4bEY6uE6hJh YrSsP3ZYrlB739ToDp cCIv Qxsly8ixh8erxUt1Xl IwJSIgdmFsaWduPSJ0 l2NkNp98L6NutXfen5 OsByq4wq30yREdc7Z7 bGU9 Y1WeAXMwmxsyfVGbmG gdWD4nRDQdmtseLHWa wN2xTAJwY0q2SeNgGc C1JUfmX8CdsvZ6NBEc bGQg AFKgaBVMaF7maadvi3 xvcjogIzAwMDAwMDt0 PKz1YAQfsPinWkQxLO U5PvE3NFR0aYDqmU3y bGln qqayiM7rPmc+UGF0aW YttPPLEZ7jYtfoxNM+ WVOtMET4sBohKXuaKJ AafG2uUVCaW8s8ZvFw LjA1 JUazG2UoboG1NVKbsP HsCTQuiVUTtT3gmzns w9akbwbbFdSrHQEsJT k6ELs0RQKffLtsYvIm ZWZ0 AyQ1AXL5iCLrvB1foU mzcsxdkB4lNlo+Qmly eGgsAXC5MTt7A8GgDr f5BMGauLxbTF0wnQAg ZGlu Ku3gaSbijShvPB7lGA Gxmlnuo310EuWsu4zc EGPjuHLnAUscVCU6Q0 8ci7U9SVMgCNOdPTP1 dGV4 cP6ulYakuukzkVBfkR sgdmVydGljYWwtYWxp O613EEKuzNhkYhWjCK s0D8UcYvm3TGAgqDsa ZT0n qLLsCCtyHw7qcFlnzM iaKH8iLQMmprujo038 YkOub7ypIHXvfGGgVT nsDPG7M24xr4O7WRHy MDAw FEW2sRZ2fS5uqSfdsc ogbGVmdDsgdmVydGlj RKgyCHraV730HUDrgO ccFvKbjIc1Y6OsGjz3 ZCBz xQndCA5clLFdDIjtQr 7auDsbaQhrJN1nWUVt ncrgj551XyJrn9ftSE SqmHCbQDyyRHA0V77s b3I6 NYUeSTEwBFX4iUL8yQ 1hbGlnbjogbGVmdDsg dmVydGljYWwtYWxpZ2 46IHRvcDsnPlBhdGll bnQg MPurGQr5D0LgFnszlZ I+RA11GOCbEU77jESi oBTgs6mdnEc1CdLwEO XaRTZ1iWyqGCrsn1En ZXIt P40egPKcq3A8QARotO aeeIQhHpCpyTV9mY3t HOtkomcxb4ymvsimGz fdu9ygvd59gZ62O68d IHdp ZHRoPSIzMCUiIHZhbG tvkd8fjM2uMk4+PGNv tES9bMF1kD8jDNTdTp B5UBasD286TtAibNRz Pjxj q8wtw5vgyZk7VtN7CN AxkhGcsNkhUNC2n8Ep We34T68lLWxmUYNdAG DwZHWdFCRoeDrqbq5t dG9w Ii8+QXPmqPI4eUB9nW 6wZqKhLzV8SLxcD559 AdKjwMVfPygbI46dD6 JvdXA+JOMmFit5UYKr dHls EK1nyUCvDLdpTv9oMZ J2YoVjMrIyYOebW5Ub SMEevzyyciqdrXT8CV HlFWJobJ83Mp7luFim MTBw lKGTuJ2eujghv4ghgr dzRfHgEYGdQQl4IOn8 WNFrsOqbSxXnZKA0Yt K1HVJ3xIZbfN3ecJwq bjog tR2iX1RiLEDzhetsJv 00mE0qVfYxZiY2MXhg Oyc+DOZKFC7FHJETCW HPVOgiEf5XELdxxFK+ PHRk KEI7nPqzNPvyOYWlrX 3pEFEiU3f0RbTcFqP7 PIkjN7KnMKSkhllkCa 84jZ3qWgXnKhG3WGte O2Zv lxL1PHLwfVIjULwnMK K3A07pz2F0VRMeFGFq ANI6qID0jL8geKwidy ogbGVmdDsgdmVydGlj YWwt YLbgS736RKZgbZphCe AmHqO1BaK6Ygk2M8Ip Nyz6FPIvgQpyMW7wwN RzDZtdLp0guFaghHem MC4w UOOtcbqnRQWycJ5dBR BdiCSbcFgoAR4dPRYw tcloz216IzXlDEH6QE RtmAOoK2OtdF6aWzKi MDAw OFBzU6FfjHWuPZbjP0 86QXzsChR4OWOmygCu R4DrFSBeoTltXsU8e5 T0Yc60QOUWWSLwoeaw dGQ+ NIIuESX5nWenBEjvNF RllY2iYIAzG3m1SlIg SzO9YIhiW7HtSZHmum yfGr00oT9yUpYlFnT9 MGlu B2AgbfD6LLNmzJSyUG qzDMV6E75wm4L4ISIt UUAhIGP5bCP8aC2vuX lnbjogbGVmdDsgdmVy dGlj RFllDAvdZ041RLUjyP snPkZFTUFMRTwvdGQ+ HQKlVUO6kEvoKQpkHM PidV1bNMPuR0r1PhKn LjA1 EZwxF9LxUULitnmaQf 40dV7dPeSqOqK7PCvl X7PjrnE8KZOjiTDyBI amPNY1C57eh9M8VXFi MDAw YNU0iFB6zS6psLhnvm ogbGVmdDsgdmVydGlj RHceZNjmP630FEWnoQ snPkRheSBTdXJnZXJ5 PC90 XN58V0GqZrqxvBZlaT U+PHRhYmxlIHdpZHRo PScxMDAlJyBzdHlsZT 7zLv0kQBUwWJJgaQch cHNl WtSli4deZDHdRLrkOR 0kwKboA7UezDG5OJNh o1c3Pb89B20yD0YckO A+GJSpeFB6jFX7jU3e MzAl OgN8QNrmW914CuHmkZ AsHzvhv7riy8bklRy0 IjMwJSIgdmFsaWduPS W6f0XkJa38T19nNNfw ZHRo PSIyMCUiIHZhbGlnbj 6ijF5vAp3+PGNvbCB3 wNO0iF4gKpUmLrH4HM fjV265WbVtxQWbRqmx Y29s G8ZrhUH+JERiQty4JS SbcQukZJ8ehWNvODlz Og8uBHU0XsQdZbTdZC zxL3XyMIBjeqxqsece aHQ6 WGZjHBDhyK09Xb7qxP rmYg3dCLAkXGP5JRTe pHYeM6MalB7rMsXsAO QcNMDgD4AixPOsYYtv Z246 AOaeOxU4ODAyrpEvN9 SkWUGekUzkCzC6f3W5 Lt8BcZakmSKvEN7sTa JiVSl6G6AoJpk4MFOt dHls ZZ5jqPQzEQehFs1ghK xihJddXA0kIVLhstdv m283YoGbq1zgVXXknJ UvNUtaWAL3A41nt2Z0 ICMw UQXqEMK4eHP8oS9vrQ lnbjogbGVmdDsgdmVy zQipFRduZQlyE166AR LnrMdtSuFBFed8M2Ua Pjx0 QLXuvKqqKU4kfXGgOI jdEk5rbQhkfEjmVP4m HEXtbgqev373DpYti6 xkIDEwcHQgVGltZXM7 Y29s c4G3BSNpXLAkZXZ0vJ A5fF0nlLiilnzghZEi dDsgdmVydGljYWwtYW grG934NVDpdCxkJw8J Tjo8 Q1IlGau7QKTyeNddCC 2coWZwYPrjXo2wiPqf vSrrVJ2dNAKzvsqey5 46KsGwz5blOAIkhAFj VGlt EHI3A56oh7R9OHXtQM YlBAC6hXJ0rE9cjMlh bjogbGVmdDsgdmVydG zgHTmmVMzlR671HUEo cDsn PlBheWVyOjwvdGQ+PC 35hx13N3NjFqbtQda6 NBWxLBL1uFG0jZ0oNR NgMAbwq7N6rBV4V0Hd cmRl ci1 (more content not included)... [facility] Consent Formson 09-26-2023 Consent Forms [id number]#[id number] [facility] Discharge Instructionson Discharge Instructions [id number] 0#1.00OTGTIFF [facility] Anesthesia Noteon 09-25-2023 Anesthesia Note Patient: CARISSA SANTOS Age: 43 years Sex: FEMALE : 1980 Associated Diagnoses: None Author: Angela Abrams MD Postoperative Information Anesthetic utilized: Monitored anesthesia care. Assessment Anesthetic outcome No anesthetic complications noted. Plan Transfer/ Discharge: Patient can be discharged from PACU when criteria met. Condition good. [Electronically Signed on: 09/25/2023 08:49 EST] ____ Angela Abrams MD [Verified on: 09/25/2023 08:49 EST] ____ Angela Abrams MD [facility] Anesthesia Note Patient: CARISSA SANTOS Age: 43 years Sex: FEMALE : 1980 [...] history): All Problems Diabetes / SNOMED CT 519690045 / Confirmed HTN (hypertension) / SNOMED CT 3020225016 / Confirmed Histories Family History: No family history items have been selected or recorded. Procedure history: Genital warts (027566789). Cholecystectomy (04212716). Social History Electronic Cigarette/Vaping Assessment Electronic Cigarette [...] Oriented. Review / Management Laboratory Results Plan [employer]hesi[employer]# (ASA) physical status classification: Class II. Anesthetic Preoperative [...] . [Electronically Signed on: 09/25/2023 07:49 EST] ____ Angela Abrams MD [Verified on: 09/25/2023 07:49 EST] ____ Angela Abrams MD Normal [facility] Inpatient Patient Summaryon 09-25-2023 [place] [address] Patient Discharge Instructions Name: CARISSA SANTOS : 1980 Patient Address: [address] [place] [address] Primary Care Provider: Name: DIAZ DALTON After you are discharged if you find you have any questions, please, call [phone] ext [phone] to speak to a nurse. Discharge Diagnosis: [...] alcohol and/or drug addiction problems; contact the [facility] 27/03 Crisis Hotline -Text 4HFLC dj 103459. If you received any narcotics, sedation, or [...] business decisions or sign any legal documents [facility] would like to thank you for allowing us to assist you with your healthcare needs. The following includes patient education materials and information regarding your injury/illness. CARISSA SANTOS has been given the following list of follow-up instructions, prescriptions, and patient education materials: Follow-up Instructions With: Address: When: [facility] [address] [place] [address] [facility] (1) 10/05/2023 11:00 AM Medications During the [...] doctor pr (more content not included)... Normal [facility] MAGR Intraoperative Recordon 09-25-2023 MAGR Intraoperative Record MAGR Intra-Op Record Summary Primary Physician: Arianna Miller DO Finalized Date/Time: 09/25/23 08:48:16 Pt. Name: CARISSA SANTOS/Sex: 1980 FEMALE Med Rec #: [id number] Physician: Arianna Miller DO Financial #: [id number] Pt. Type: D Room/Bed: / Admit/Disch: 09/25/23 [...] Andrew DO Role Performed Surgeon - Primary Annual Greenhouse Manager Anesthesiologist of Record Time In 09/25/23 08:10:00 09/25/23 08:10:00 09/25/23 08:10:00 Time Out 09/25/23 08:38:00 09/25/23 08:41:00 09/25/23 08:41:00 Procedure Carpal Tunnel Carpal Tunnel Carpal Tunnel Release(Left) Release(Left) Release(Left) Last Modified By: Allyson Alfred RN, Lauren L RN Wheeler, Lauren L RN 09/25/23 08:43:33 09/25/23 08:43:21 09/25/23 08:43:21 Entry 4 Entry 5 Case Attendee Dayna Roberson CST, CST [place] CAT CRACKER OPERATOR CSFA Role Performed Media Consultant Scrub Relief Time In 09/25/23 08:10:00 09/25/23 [...] Lauren L RN, Angela Abrams MD, Da CAT CRACKER OPERATOR, Dayna CAT CRACKER OPERATOR CSFA, Mila Wyatt CAT CRACKER OPERATOR Last Modified By: Allyson Alfred RN 09/25/23 [...] Yes Press Points (more content not included)... [facility] MAGR Postoperative Recordon 09-25-2023 MAGR Postoperative Record MAGR Phase II Record Summary Primary Physician: Arianna Miller DO Finalized Date/Time: 09/25/23 10:39:28 Pt. Name: CARISSA SANTOS/Sex: 1980 FEMALE Med Rec #: [id number] Physician: Arianna Miller DO Financial #: [id number] Pt. Type: D Room/Bed: / Admit/Disch: 09/25/23 [...] Signed By: Jennyfer Gresham RN 09/25/23 10:39 [facility] 09-25-2023 MAGR Preoperative Record MAGR Pre-Op Record Summary Primary Physician: Arianna Miller DO Finalized Date/Time: 09/25/23 08:48:38 Pt. Name: CARISSA SANTOS/Sex: 1980 FEMALE Med Rec #: [id number] Physician: Arianna Miller DO Financial #: [id number] Pt. Type: D Room/Bed: / Admit/Disch: 09/25/23 [...] cough or flu like symptoms. Pt denies pacemaker/defibill ator or sleep apnea. Finalized By: Allyson Alfred RN Document Signatures Signed By: Allyson Alfred RN 09/25/23 08:48 [facility] Patient Handouton 09-25-[address] MILLER'S POST OPERATIVE CARPAL TUNNEL INSTRUCTIONS: SURGEON'S WRITTEN INSTRUCTIONS: 1. Keep your hand elevated above your elbow for the first 24 hours after surgery. 2. Wiggle your fingers frequently while awake. 3. DO NOT lift heavy objects or beef boner forcefully with your hand. 4. Change your [...] or concerns, please call the office at [phone]. 7. Follow up as scheduled. [facility] Test Serum 1on Preg Serum Internal Control OK [facility] Comment on above: Performed By: #### 3 [id number] ####[facility] (DEFAULT)[address] [place] [address] Test Serum Qual Negative [facility] Comment on above: Performed By: #### 3 [id number] ####[facility] (DEFAULT)[address] [place] [address] 36857 Progress Note - Nurseon 09-04 Progress Note - Nurse Spoke with pt and informed her to be here at 0630 and NPO after MN, she verbalizes understanding. [Electronically Signed on: 09/22/2023 09:47 EST] ____ Kalyani Ortiz RN [Verified on: 09/22/2023 09:47 EST] ____ Kalyani Ortiz RN [facility] Progress Note - Nurseon 09-04 Progress Note - Nurse Dr Lares reviews pt chart and no new orders were received. [Electronically Signed on: 09/15/2023 11:46 EST] ____ Kalyani Ortiz RN [Verified on: 09/15/2023 11:46 EST] ____ Kalyani Ortiz RN [facility] Progress Note - Nurseon 09-04 Progress Note - Nurse PAT review done per Dr. Lares, order received. [Electronically Signed on: 09/14/2023 14:38 EST] ____ Katelyn Moon RN [Verified on: 09/14/2023 14:38 EST] ____ Katelyn Moon RN Normal [facility] .Auto Diff 1on 09-13-2023 Auto Fleming % 4 % Normal 1-12 [facility] Comment on above: Performed By: #### 7 [id number], [id number], [id number] ####[facility] (DEFAULT)[address] [place] [address] 37930 Baso Abs# 0.0 x10 Normal 0.0-0.2 [facility] Comment on above: Performed By: #### 7 [id number], [id number], [id number] ####[facility] (DEFAULT)[address] [place] [address] 86812 Basophils/100 WBC (Bld) 0.8 % Normal 0.2-2.0 [facility] Comment on above: Performed By: #### 7 795239, [id number], [id number] ####[facility] (DEFAULT)[address] [place] [address] 90875 Eos Abs# 0.1 x10 Normal 0.0-0.4 [facility] Comment on above: Performed By: #### 7 057306, [id number], [id number] ####[facility] (DEFAULT)[address] [place] [address] 98625 Eosinophils/100 WBC (Bld) 1.2 % Normal 0.9-4.0 [facility] Comment on above: Performed By: #### 7 490125, [id number], [id number] ####[facility] (DEFAULT)[address] [place] [address] 40443 Lymph Abs# 2.0 x10 Normal 1.3-2.9 [facility] Comment on above: Performed By: #### 7 808737, [id number], [id number] ####[facility] (DEFAULT)[address] [place] [address] 81228 Lymphocytes/100 WBC (Bld) 40 % Normal 14-48 [facility] Comment on above: Performed By: #### 7 [id number], [id number], [id number] ####[facility] (DEFAULT)[address] [place] [address] 20432 Fleming Abs# 0.2 x10 Normal 0.0-0.8 [facility] Comment on above: Performed By: #### 7 476997, [id number], [id number] ####[facility] (DEFAULT)[address] [place] [address] 12633 Neut Abs# 2.7 x10 Normal 1.5-9.2 [facility] Comment on above: Performed By: #### 7 913618, [id number], [id number] ####[facility] (DEFAULT)[address] [place] [address] 24130 Neutrophils/100 WBC (Bld) 54 % Normal 44-88 [facility] Comment on above: Performed By: #### 7 788234, [id number], [id number] ####[facility] (DEFAULT)[address] [place] [address] 99270 BMP Standardon 09-13-2023 eGFR Non AA >60 Invalid Interpretation Code [facility] Comment on above: Performed By: #### 7 [id number], [id number], [id number] ####[facility] (DEFAULT)[address] [place] [address] 22540 eGFR AA >60 Invalid Interpretation Code [facility] Comment on above: Performed By: #### 7 980091, [id number], [id number] ####[facility] (DEFAULT)[address] [place] [address] 77167 Anion gap [Moles/Vol] 10.4 mmol/L Normal 5.0-19.0 [facility] Comment on above: Performed By: #### 7 370699, [id number], [id number] ####[facility] (DEFAULT)[address] [place] [address] 18907 Calcium [Mass/Vol] 8.9 mg/dL Normal 8.9-10.3 [facility] Comment on above: Performed By: #### 7 825207, [id number], [id number] ####[facility] (DEFAULT)[address] [place] [address] 59153 Chloride [Moles/Vol] 102 mmol/L Normal 101-111 [facility] Comment on above: Performed By: #### 7 869946, [id number], [id number] ####[facility] (DEFAULT)[address] [place] [address] 34351 CO2 [Moles/Vol] 27 mmol/L Normal 21-32 [facility] Comment on above: Performed By: #### 7 178581, [id number], [id number] ####[facility] (DEFAULT)[address] [place] [address] 53750 Creatinine [Mass/Vol] 0.76 mg/dL Normal 0.60-1.30 [facility] Comment on above: Performed By: #### 7 236107, [id number], [id number] ####[facility] (DEFAULT)[address] [place] [address] 90238 Glucose [Mass/Vol] 276.0 mg/dL High 74.0-118.0 [facility] Comment on above: Performed By: #### 7 931999, [id number], [id number] ####[facility] (DEFAULT)[address] [place] [address] 68575 Osmolality 282 mOsm/L Invalid Interpretation Code [facility] Comment on above: Performed By: #### 7 260423, [id number], [id number] ####[facility] (DEFAULT)[address] [place] [address] 27441 Potassium [Moles/Vol] 4.4 mmol/L Normal 3.6-5.1 [facility] Comment on above: Performed By: #### 7 617320, [id number], [id number] ####[facility] (DEFAULT)[address] [place] [address] 62395 Sodium [Moles/Vol] 135.0 mmol/L Low 136.0-144.0 [facility] Comment on above: Performed By: #### 7 103821, [id number], [id number] ####[facility] (DEFAULT)[address] [place] [address] 88062 Urea nitrogen [Mass/Vol] 18 mg/dL Normal 8-26 [facility] Comment on above: Performed By: #### 7 118739, [id number], [id number] ####[facility] (DEFAULT)[address] [place] [address] Urea nitrogen/Creatinine [Mass ratio] 23.6 mg/mg High 4.6-16.2 [facility] Comment on above: Performed By: #### 7 119754, [id number], [id number] ####[facility] (DEFAULT)[address] [place] [address] CBC w/ Auto Diffon 4 Erythrocyte distribution width (RBC) [Ratio] 13.5 % Normal 11.5-15.0 [facility] Comment on above: Performed By: #### 7 813663, [id number], [id number] #### [facility] (DEFAULT) [address] [place] [address] Hematocrit (Bld) [Volume fraction] 42.9 % High 33.7-40.4 [facility] Comment on above: Performed By: #### 7 276543, [id number], [id number] #### [facility] (DEFAULT) [address] [place] [address] 29033 Hemoglobin (Bld) [Mass/Vol] 14.1 g/dL Normal 11.3-15.9 [facility] Comment on above: Performed By: #### 7 399769, [id number], [id number] #### [facility] (DEFAULT) [address] [place] [address] 13021 Man Diff? Auto Invalid Interpretation Code [facility] Comment on above: Performed By: #### 7 326851, [id number], [id number] #### [facility] (DEFAULT) [address] [place] [address] 10770 MCH (RBC) [Entitic mass] 28 pg Normal 24-34 [facility] Comment on above: Performed By: #### 7 444254, [id number], [id number] #### [facility] (DEFAULT) [address] [place] [address] 59295 MCHC (RBC) [Mass/Vol] 33 g/dL Normal 26-37 [facility] Comment on above: Performed By: #### 7 197856, [id number], [id number] #### [facility] (DEFAULT) [address] [place] [address] 36925 MCV (RBC) [Entitic vol] 87 fL Normal 81-100 [facility] Comment on above: Performed By: #### 7 526992, [id number], [id number] #### [facility] (DEFAULT) [address] [place] [address] 71387 Platelet 206 x10 Normal 138-427 [facility] Comment on above: Performed By: #### 7 463483, [id number], [id number] #### [facility] (DEFAULT) [address] [place] [address] 22064 Platelet mean volume (Bld) [Entitic vol] 6.9 fL Normal 6.3-10.2 [facility] Comment on above: Performed By: #### 7 210813, [id number], [id number] #### [facility] (DEFAULT) [address] [place] [address] 08244 RBC 4.95 x10 Normal 3.70-5.30 [facility] Comment on above: Performed By: #### 7 797695, [id number], [id number] #### [facility] (DEFAULT) [address] [place] [address] 43770 WBC 5.1 x10 Normal 3.5-10.5 [facility] Comment on above: Performed By: #### 7 058717, [id number], [id number] #### [facility] (DEFAULT) [address] [place] [address] 25717 PREG HCG QUALon 01-10-2023 , QUAL Negative Normal NEGATIVE [facility] Comment on above: Performed By: #### P REG #### [facility] [address] [address] [address] Dipika Rapp US PELVIS AND TRANSVAGon [...] by: HARVINDER DELEON Date: 2022-12-26 14:02 Normal [facility] Office Visiton 12-07-2022 Follow-up visit [id number] Carissa Santos 1980 F Date Provider Department Center 12/07/2022 Juhi-ROBSON PAZ [facility] Family History Problem Relation Age of Onset Diabetes Mother Leukemia Father Family Status - Relation Status Age at Mother Father Level of Service:[address] [place] POSTOP FOLLOW UP VISIT RELATED TO ORIGINAL PX (GC) Reason for Visit and Comments: Post-op [483] Normal [facility] HPon 11-21-2022 HP H&P reviewed. The patient was examined and there are no changes to the H&P. Normal [facility] HP H&P reviewed. The patient was examined and there are no changes to the H&P. Normal [facility] NURSNOTEon 11-21-2022 NURSNOTE Patients operative hand warm to touch, and sorin at the bedside to evaluate. Okay for pt to go home, Good capillary refill, soft no swelling noted. Normal [facility] OPNOTEon 11-21-2022 OPNOTE ORTHOPAEDIC SURGERY OPERATIVE REPORT Date of Surgery: 11/21/2022 Surgeon: Robson Paz MD Prescription Clerk: Sorin Farooq MD Preoperative Diagnosis: Left cubital [...] flexion and extension. Indications For Procedure: Carissa Santos is a 42 y.o. female with a [...] of the procedure(s). Robson Paz MD Normal [facility] POCT GLUCOSE METER UNSOLICIT ED RESULTSon 11-21-2022 Glucose [Mass/Vol] 74 mg/dL Normal 70-105 [facility] Comment on above: Result Comment: [email or web address] Performed By: #### L [id number] #### [facility] ([facility]) [address] [place] [address] Glucose [Mass/Vol] 53 mg/dL Low 70-105 [facility] Comment on above: Result Comment: [email or web address] Performed By: #### L [id number] ####[facility] ([facility] [place] [address] Glucose [Mass/Vol] 73 mg/dL Normal 70-105 [facility] Comment on above: Result Comment: [email or web address] Performed By: #### L [id number] ####[facility] ([facility] [place] [address] Glucose [Mass/Vol] 44 mg/dL Invalid Interpretation Code 70-105 [facility] Comment on above: Result Comment: [email or web address] Critical Value Noted Performed By: #### L [id number] ####[facility] ([facility])[address] [facility] [place] [address] Glucose [Mass/Vol] 53 mg/dL Low 70-105 [facility] Comment on above: Result Comment: [email or web address] Performed By: #### L [id number] ####[facility] ([facility])[address] [place] [address] HPon 11-04-2022 HP -------- Attestation signed by Robson Paz MD at 11/08/2022 2:35 PM I personally saw and examined the patient on the same date of service as resident/fellow . I discussed the findings and therapeutic plan with the resident/fellow . I agree with the documentation, except for any edits/updates below. Teaching Physician's Revisions: -------- Subjective Chief complaint: Chief Complaint Patient presents with Left Arm - Pain 11/04/22 Carissa Santos is a 42 y.o. year old [id number] female presenting for evaluation of left hand [...] Past Medical History: Diagnosis Date Diabetes mellitus ([facility]) Objective General: Body mass index is 41.38 [...] finger: normal A1 carina and AROM Strength: beef boner 5/5, thumb 5/5, interossei 5/5 Sensation: intact [...] outside facility. Results described above. Assessment/Plan Carissa Santos is a 42 y.o. year old female [...] intervention - Instructed patient that our surgical dental assistant reach out regarding future surgical date - Surgery will be performed under regional anesthesia -Return to clinic for surgical intervention -Call the orthopedic office any questions or concerns Michael Ward MD Orthopedic Surgery Resident Physician Pager: [phone] 11/04/22 12:35 PM By using the attestations [...] an additional personal documentation from me. Normal [facility] Office Visiton 11-04-2022 Follow-up visit [id number] Carissa Santos 1980 F Date Provider Department Center 11/04/2022 Juhi-ROBSON PAZ MP ORTHO MPORTHO Family History Problem Relation Age of Onset Diabetes Mother Leukemia Father Family Status - Relation Status Age at Mother Father Level of Service:[address] [place] OFFICE/OUTPATIENT ESTABLISHED LOW MDM 20-29 MIN Reason for Visit and Comments: Pain [136] Normal [facility] FSHon 09-15-2022 FSH 39.6 mIU/mL Normal [facility] Comment on above: Result Comment: Adul t Female: Follicular phase 3.5 - 12.5 Ovulation phase 4.7 - 21.5 Luteal phase 1.7 - 7.7 Postmenopausal 25.8 - 134.8 Performed By: #### L [facility] #### [facility] [address] [place] [address] Dr. Dipika Rapp LUTEINIZING HORMONE (LH)on 0 09-15-2022 LH 32.9 mIU/mL Normal [facility] Comment on above: Result Comment: Adul t Female: Follicular phase 2.4 - 12.6 Ovulation phase 14.0 - 95.6 Luteal phase 1.0 - 11.4 Postmenopausal 7.7 - 58.5 Performed By: #### L [facility] #### [facility] [address] [address] [address] Dipika Rapp PROLACTINon 09-15-2022 Prolactin 4.6 ng/mL Critically low 4.8-23.3 The [facility] Comment on above: Performed By: #### P ROLAC ####[facility] [address] [place], [place] [address]DrBrian Rapp CBC AUTO DIFFon 09-14-2022 BASO # 0.0 103/ul Normal 0.0-0.1 The [facility] Comment on above: Performed By: #### C BC ####[facility] [address] [place], [place] [address]DrBrian Rapp Basophils/100 WBC (Bld) 0.4 % Normal 0.2-2.0 The [facility] Comment on above: Performed By: #### C BC ####[facility] [address] [place], [place] [address]DrBrian Rapp EO # 0.1 103/ul Normal 0.0-0.7 The [facility] Comment on above: Performed By: #### C BC ####[facility] [address] [place], [place] [address]DrBrian Rapp Eosinophils/100 WBC (Bld) 0.8 % Critically low 0.9-7.0 [facility] Comment on above: Performed By: #### C BC ####[facility] [address] [place], [place] [address]DrBrian Rapp Erythrocyte distribution width (RBC) [Ratio] 12.5 % Normal 11.0-15.0 The [facility] Comment on above: Performed By: #### C BC ####[facility] [address] [place], [place] [address]DrBrian Rapp Hematocrit (Bld) [Volume fraction] 46.2 % Normal 36.0-48.0 The [facility] Comment on above: Performed By: #### C BC ####[facility] [address] [place], [place] [address]DrBrian Rapp Hemoglobin (Bld) [Mass/Vol] 14.9 g/dL Normal 12.0-16.0 The [facility] Comment on above: Performed By: #### C BC ####[facility] [address] [phone]. Dipika Rapp IG # 0.04 10e3/ul Critically high 0.00-0.03 [facility] Comment on above: Performed By: #### C BC ####[facility] [address] [phone]. Dipika Dionte IG % 0.5 % Normal 0.0-0.5 [facility] Comment on above: Performed By: #### C BC ####[facility] [address] [address]Dr. Dipika Dionte LYMPH # 2.8 103/ul Normal 1.2-3.8 [facility] Comment on above: Performed By: #### C BC ####[facility] [address] [address]Dr. Dipika Rapp Lymphocytes/100 WBC (Bld) 34.7 % Normal 20.5-60.0 [facility] Comment on above: Performed By: #### C BC ####[facility] [address] [address]Dr. Vanessazackary Rapp MANUAL DIFF REQ NO Normal [facility] Comment on above: Performed By: #### C BC ####[facility] [address] [address]Dr. Dipika Rapp MCH (RBC) [Entitic mass] 28.3 pg Normal 26.7-34.0 [facility] Comment on above: Performed By: #### C BC ####[facility] [address] [place], [place] [address]Dr. Dipika Rapp MCHC (RBC) [Mass/Vol] 32.3 g/dL Normal 29.9-35.2 The [facility] Comment on above: Performed By: #### C BC ####[facility] [address] [address]Dr. Dipika Dionte MCV (RBC) [Entitic vol] 87.7 fL Normal 81.0-99.0 [facility] Comment on above: Performed By: #### C BC ####[facility] [address] [phone]. Dipika Rapp MONO # 0.4 103/ul Normal 0.3-0.8 The [facility] Comment on above: Performed By: #### C BC ####[facility] [address] [phone]. Dipika Rapp Monocytes/100 WBC (Bld) 5.0 % Normal 1.7-12.0 The [facility] Comment on above: Performed By: #### C BC ####[facility] [address] [phone]. Dipika Rapp NEUT # 4.7 103/ul Normal 1.4-6.5 The [facility] Comment on above: Performed By: #### C BC ####[facility] [address] [phone]. Dipika Rapp Neutrophils/100 WBC (Bld) 58.6 % Normal 43.0-75.0 The [facility] Comment on above: Performed By: #### C BC ####[facility] [address] [phone]. Dipika Rapp Platelet mean volume (Bld) [Entitic vol] 9.1 fL Critically low 9.5-13.5 The [facility] Comment on above: Performed By: #### C BC ####[facility] [address] [phone]. Dipika Rapp PLT 194 103/ul Normal 150-450 The [facility] Comment on above: Performed By: #### C BC ####[facility] [address] [phone]. Dipika Rapp RBC 5.27 106/ul Normal 4.20-5.40 The [facility] Comment on above: Performed By: #### C BC ####[facility] [address] [address]Dr. Dipika Rapp WBC 8.0 103/ul Normal 4.0-11.0 The [facility] Comment on above: Performed By: #### C BC ####[facility] [address] [address]Dr. Dipika Rapp FREE T4on 09-14-2022 Free T4 [Mass/Vol] 1.04 ng/dL Normal 0.76-1.46 [facility] Comment on above: Performed By: #### F T4 #### [facility] [address] [address] [address] Dipika Rapp TSHon 09-14-2022 TSH 1.420 uIU/mL Normal 0.358-3.740 [facility] Comment on above: Performed By: #### T SH #### [facility] [address] [place] [address] Dr. Dipika Rapp PAP ACOG PANEL 2: 30 to 65on 07-25-2022 . . Normal [facility] Comment on above: Result Comment: Perf ormed at: WB Performed By: #### 4 [id number] #### [facility] [address] [place] [address] Dr. Dipika Rapp Age Gdln ACOG Testing - [facility] Comment on above: Performed By: #### 4 [id number] #### [facility] [address] [address] [address] Dipika Rapp DIAGNOSIS: Comment Normal [facility] Comment on above: Result Comment: NEGA TIVE FOR INTRAEPITHELIAL LESION OR MALIGNANCY. THIS SPECIMEN WAS RESCREENED PART OF OUR CPC PROGRAM. Performed at: WB Performed By: #### 4 [id number] #### [facility] [address] [place] [address] Dr. Dipika Rapp HPV Aptima Negative Normal Negative [facility] Comment on above: Result Comment: This nucleic acid amplification test detects fourteen high-risk HPV types (16,18,31,33,35,39,45,51,52,56,58,59,66,68) without differentiation. Performed at: =G Performed By: #### 4 [id number] #### [facility] [address] [place] [address] Dr. Dipika Rapp HPV Genotype Reflex Comment Normal [facility] Comment on above: Result Comment: Crit eria not met, HPV Genotype not performed. Performed at: WB Performed By: #### 4 [id number] #### [facility] [address] [place] [address] Dr. Dipika Rapp Methodology: Comment [facility] Comment on above: Result Comment: This liquid based ThinPrep(R) pap test was screened with the use of an image guided system. Performed at: WB Performed By: #### 4 [id number] #### [facility] [address] [place] [address] Dr. Dipika Rapp Note: Comment Normal [facility] Comment on above: Result Comment: The Pap smear is a screening test designed to aid in the detection of premalignant and malignant conditions of the uterine cervix. It is not a diagnostic procedure and should not be used as the sole means of detecting cervical cancer. Both false-positive and false-negative reports do occur. . Performed at: WB Performed By: #### 4 [id number] #### [facility] [address] [place] [address] Dr. Dipika Rapp Performed by: Comment Normal [facility] Comment on above: Result Comment: Luna Zelaya, Slate Splitter (ASCP) Performed at: WB Performed By: #### 4 [id number] #### [facility] [address] [place] [address] Dr. Dipika Rapp QC reviewed by: Comment Normal [facility] Comment on above: Result Comment: Светлана Burger, Supervisory Slate Splitter (ASCP) Performed at: WB Performed By: #### 4 [id number] #### [facility] [address] [place] [address] Dr. Dipika Rapp Specimen adequacy: Comment Normal [facility] Comment on above: Result Comment: Sati sfactory for evaluation. Endocervical and/or squamous metaplastic cells (endocervical component) are present. Performed at: WB Performed By: #### 4 [id number] #### [facility] [address] [place] [address] Dr. Dipika Rapp MG MAMM SCREEN 3D DINAH CADon 06-22-2022 MG MAMM SCREEN 3D DINAH CAD Patient: CARISSA SANTOS Exam Date: 06/22/2022 : 1980 Gender:F Ordering : DR FELIZ BENZ . Admission #: [id number] Family : Order #: [id number] CLICK HERE TO VIEW EXAM RADIOLOGY REPORT [...] Treatments None Family Cancers None LOCATION: The [facility] BREAST COMPOSITION: Scattered areas fibroglandular [...] Deleon M.D. on 06/22/2022 at 15:52 Normal [facility] GLYCOHEMOGLOBIN A1Con 2021 ADA RECOMMENDATION SEE BELOW Normal [facility] Comment on above: Result Comment: ADA RECOMMENDED LIMIT 4.0 - 6.0 ADA THERAPEUTIC TARGET < 7.0 ACTION SUGGESTED > 7.0 Performed By: #### A 1C #### [facility] [address] [address] [address] Dipika Rapp Glucose [Mass/Vol] 163 mg/dL Normal [facility] Comment on above: Performed By: #### A 1C #### [facility] [address] [address] [address] Dipika Rapp HbA1c (Bld) [Mass fraction] 7.3 % Critically high 4.5-6.2 [facility] Comment on above: Performed By: #### A 1C #### [facility] [address] [address] [address] Dipika Rapp CBC AUTO DIFFon 01-23-2022 BASO # 0.0 103/ul Normal 0.0-0.1 [facility] Comment on above: Performed By: #### C BC ####[facility] [address] [place], [place] [address]Dr. Dipika Rapp Basophils/100 WBC (Bld) 0.3 % Normal 0.2-2.0 [facility] Comment on above: Performed By: #### C BC ####[facility] [address] [place], [place] [address]Dr. Dipika Rapp EO # 0.2 103/ul Normal 0.0-0.7 [facility] Comment on above: Performed By: #### C BC ####[facility] T[address] [place], [place] [address]Dr. Dipika Rapp Eosinophils/100 WBC (Bld) 1.7 % Normal 0.9-7.0 [facility] Comment on above: Performed By: #### C BC ####[facility] [address] [place], [place] [address]Dr. Dipika Rapp Erythrocyte distribution width (RBC) [Ratio] 12.0 % Normal 11.0-15.0 [facility] Comment on above: Performed By: #### C BC ####[facility] [address] [place], [place] [address]Dr. Dipika Rapp Hematocrit (Bld) [Volume fraction] 43.0 % Normal 36.0-48.0 [facility] Comment on above: Performed By: #### C BC ####[facility] [address] [place], [place] [address]Dr. Dipika Rapp Hemoglobin (Bld) [Mass/Vol] 13.6 g/dL Normal 12.0-16.0 [facility] Comment on above: Performed By: #### C BC ####[facility] [address] [place], [place] [address]Dr. Dipika Rapp IG # 0.02 10e3/ul Normal 0.00-0.03 [facility] Comment on above: Performed By: #### C BC ####[facility] [address] [place], [place] [address]Dr. Dipika Rapp IG % 0.2 % Normal 0.0-0.5 [facility] Comment on above: Performed By: #### C BC ####[facility] [address] [phone] Dipika Dionte LYMPH # 3.5 103/ul Normal 1.2-3.8 [facility] Comment on above: Performed By: #### C BC ####[facility] [address] [phone]. Vanessazackary Rapp Lymphocytes/100 WBC (Bld) 39.2 % Normal 20.5-60.0 [facility] Comment on above: Performed By: #### C BC ####[facility] [address] [address]DrBrian Vanessazackary Rapp MANUAL DIFF REQ NO Normal [facility] Comment on above: Performed By: #### C BC ####[facility] [address] [place], [place] [address]Dr. Dipika Dionte MCH (RBC) [Entitic mass] 28.6 pg Normal 26.7-34.0 [facility] Comment on above: Performed By: #### C BC ####[facility] [address] [place], [place] [address]Dr. Dipika Dionte MCHC (RBC) [Mass/Vol] 31.6 g/dL Normal 29.9-35.2 [facility] Comment on above: Performed By: #### C BC ####[facility] [address] [phone]. Dipika Dionte MCV (RBC) [Entitic vol] 90.3 fL Normal 81.0-99.0 [facility] Comment on above: Performed By: #### C BC ####[facility] [address] [place], [place] [address]DrBrian Rapp MONO # 0.5 103/ul Normal 0.3-0.8 [facility] Comment on above: Performed By: #### C BC ####[facility] [address] [phone]. Dipika Rapp Monocytes/100 WBC (Bld) 5.8 % Normal 1.7-12.0 [facility] Comment on above: Performed By: #### C BC ####[facility] [address] [address]Dr. Vanessazackary Rapp NEUT # 4.7 103/ul Normal 1.4-6.5 [facility] Comment on above: Performed By: #### C BC ####[facility] [address] [address]Dr. Dipika Rapp Neutrophils/100 WBC (Bld) 52.8 % Normal 43.0-75.0 [facility] Comment on above: Performed By: #### C BC ####[facility] [address] [address]DrBrian Rapp Platelet mean volume (Bld) [Entitic vol] 9.3 fL Critically low 9.5-13.5 [facility] Comment on above: Performed By: #### C BC ####[facility] [address] [address]Dr. Dipika Rapp PLT 219 103/ul Normal 150-450 [facility] Comment on above: Performed By: #### C BC ####[facility] [address] [phone] Rapp RBC 4.76 106/ul Normal 4.20-5.40 [facility] Comment on above: Performed By: #### C BC ####[facility] [address] [phone] Rapp WBC 8.8 103/ul Normal 4.0-11.0 [facility] Comment on above: Performed By: #### C BC ####[facility] [address] [phone]. Dipika Rapp POINT OF CARE GLUCOSEon 01-03 Glucose [Mass/Vol] 51 mg/dL Critically low 74-106 Th [facility] Comment on above: Performed By: #### P OCGLUC #### [facility] [address] [address] [address] Dipika Rapp PROF 14(COMP METB)on 022 Albumin [Mass/Vol] 3.1 g/dL Critically low 3.4-5.0 Th e [facility] Comment on above: Performed By: #### C MP #### [facility] [address] [place] [address] Dr. Dipika Rapp Albumin/Globulin [Mass ratio] 0.8 {ratio} Normal [facility] Comment on above: Performed By: #### C MP #### [facility] [address] [address] [address] Dipika Rapp ALP [Catalytic activity/Vol] 86 U/L Normal 46-116 [facility] Comment on above: Performed By: #### C MP #### [facility] [address] [place] [address] Dr. Dipika Rapp ALT [Catalytic activity/Vol] 39 U/L Normal 14-59 [facility] Comment on above: Performed By: #### C MP #### [facility] [address] [place] [address] Dr. Dipika Rapp Anion gap [Moles/Vol] 10.8 mmol/L Normal [facility] Comment on above: Performed By: #### C MP #### [facility] [address] [place] [address] Dr. Dipika Rapp AST [Catalytic activity/Vol] 11 U/L Critically low 15-37 [facility] Comment on above: Performed By: #### C MP #### [facility] [address] [place] [address] Dr. Dipika Rapp Bilirubin [Mass/Vol] 0.1 mg/dL Critically low 0.2-1.0 [facility] Comment on above: Performed By: #### C MP #### [facility] [address] [place] [address] Dr. Dipika Rapp Calcium [Mass/Vol] 9.0 mg/dL Normal 8.5-10.1 [facility] Comment on above: Performed By: #### C MP #### [facility] [address] [place] [address] Dr. Dipika Rapp Chloride [Moles/Vol] 104 mmol/L Normal 98-107 [facility] Comment on above: Performed By: #### C MP #### [facility] [address] [address] [address] Dipika Rapp CO2 [Moles/Vol] 29.4 mmol/L Normal 21.0-32.0 [facility] Comment on above: Performed By: #### C MP #### [facility] [address] [address] [address] Dipika Rapp Creatinine [Mass/Vol] 0.67 mg/dL Normal 0.55-1.02 [facility] Comment on above: Performed By: #### C MP #### [facility] [address] [address] [address] Dipika Rapp EGFR-AF VINCENTIAN >60 Normal >=60 [facility] Comment on above: Performed By: #### C MP #### [facility] [address] [address] [address] Dipika Rapp EGFR-NON AF VINCENTIAN >60 Normal >=60 [facility] Comment on above: Performed By: #### C MP #### [facility] [address] [address] [address] Dipika Rapp Globulin (S) [Mass/Vol] 3.9 g/dL Normal [facility] Comment on above: Performed By: #### C MP #### [facility] [address] [place] [address] Dr. Dipika Rapp Glucose [Mass/Vol] 142 mg/dL Critically high 74-106 [facility] Comment on above: Performed By: #### C MP #### [facility] [address] [address] [address] Dipika Rapp Potassium [Moles/Vol] 4.2 mmol/L Normal 3.5-5.1 [facility] Comment on above: Performed By: #### C MP #### [facility] [address] [address] [address] Dipika Rapp Protein [Mass/Vol] 7.0 g/dL Normal 6.4-8.2 [facility] Comment on above: Performed By: #### C MP #### [facility] [address] [place], [place] [address] Dr. Dipika Rapp Sodium [Moles/Vol] 140 mmol/L Normal 136-145 [facility] Comment on above: Performed By: #### C MP #### [facility] [address] [place], [place] [address] Dr. Dipika Rapp Urea nitrogen [Mass/Vol] 22.0 mg/dL Critically high 7.0-18.0 [facility] Comment on above: Performed By: #### C MP #### [facility] [address] [place], [place] [address] Dr. Dipika Rapp Urea nitrogen/Creatinine [Mass ratio] 32.8 mg/mg Normal [facility] Comment on above: Performed By: #### C MP #### [facility] [address] [place], [place] [address] Dr. Dipika Rapp Cult,Aerobe/Anaerobeon 10-06 Cult,Aerobe/Anaerobe Specimen Description .ULCER RT ARM Special Requests NOT REPORTED Direct Exam FEW NEUTROPHILS NO BACTERIA SEEN Culture NO GROWTH 5 DAYS Report Status FINAL 10/06/2021 Normal [facility] Comment on above: Performed By: #### U PRATIBHA Phipps #### [address] [place] [address] Civil [employer] Commander Deputy Sheriff: Brandan Ugalde MD Smear to Pathologiston 10-04 Smear to Pathologist SEE REPORT Normal [facility] Comment on above: Result Comment: REVIEWING PATHOLOGIST: ELECTRONICALLY SIGNED. HORACIO VILA M.D. Performed By: #### P TT, FIB, PT, LYTE, DBILI, TBIL, RETCT, CBC, LD, HAPT, PATH ####[facility] [address] [place] [address] Lab Director: Brandan Ugalde MD Basic Metabolic Panelon 09-06 Anion gap [Moles/Vol] 14 mmol/L 9 - 17 mmol/L [facility] Calcium [Mass/Vol] 8.3 mg/dL Low 8.6 - 10.4 mg/dL [facility] Chloride [Moles/Vol] 111 mmol/L High 98 - 107 mmol/L [facility] CO2 [Moles/Vol] 19 mmol/L Low 20 - 31 mmol/L [facility] Creatinine [Mass/Vol] 1.31 mg/dL High 0.50 - 0.90 mg/dL [facility] GFR 54 mL/min Low >60 [facility] GFR Non- 45 mL/min Low >60 [facility] GFR/1.73 sq M.predicted MDRD (S/P/Bld) [Vol rate/Area] [facility] Comment on above: Average GFR for 40-4 9 years old: 99 mL/min/1.73sq m Chronic Kidney Disease: <60 mL/min/1.73sq m Kidney failure: <15 mL/min/1.73sq m eGFR calculated using average adult body mass. Additional eGFR calculator available at: http://www.[employer]/Sparkcentral_crcl_2012.htm GFR/1.73 sq M.predicted MDRD (S/P/Bld) [Vol rate/Area] NOT REPORTED [facility] Glucose [Mass/Vol] 105 mg/dL High 70 - 99 mg/dL [facility] Interpretation and review of laboratory results Abnormal [facility] Potassium [Moles/Vol] 3.7 mmol/L 3.7 - 5.3 mmol/L [facility] Sodium [Moles/Vol] 144 mmol/L 135 - 144 mmol/L [facility] Urea nitrogen (BldV) [Mass/Vol] 19 mg/dL 6 - 20 mg/dL [facility] Urea nitrogen/Creatinine (Bld) [Mass ratio] NOT REPORTED [facility] Basic Metabolic Profon 10-03 (cont.) Normal [facility] Comment on above: Result Comment: Aver age GFR for 40-49 years old: 99 mL/min/1.73sq m Chronic Kidney Disease: <60 mL/min/1.73sq m Kidney failure: <15 mL/min/1.73sq m eGFR calculated using average adult body mass. Additional eGFR calculator available at: http://www.[employer]/multiple_crcl_2012.htm Performed By: #### U Desire, PRATIBHA #### [facility] [address] [place] [address] Civil [employer] Commander Deputy Sheriff: Brandan Ugalde MD Anion gap [Moles/Vol] 14 mmol/L Normal 9-17 [facility] Comment on above: Performed By: #### U A, UMICAO #### [facility] [address] [place] [address] [employer] Commander Deputy Sheriff: Brandan Ugalde MD Calcium [Mass/Vol] 8.3 mg/dL Low 8.6-10.4 [facility] Comment on above: Performed By: #### U A, UMICAO #### [facility] [address] [place] [address] [employer] Commander Deputy Sheriff: Brandan Ugalde MD Chloride [Moles/Vol] 111 mmol/L High 98-107 [facility] Comment on above: Performed By: #### U ACOLLEENICAO #### [facility] [address] [place] [address] [employer] Commander Deputy Sheriff: Brandan Ugalde MD CO2 [Moles/Vol] 19 mmol/L Low 20-31 [facility] Comment on above: Performed By: #### U A, FRANKO #### [facility] [address] [place] [address] [employer] Commander Deputy Sheriff: Brandan Ugalde MD Creatinine [Mass/Vol] 1.31 mg/dL High 0.50-0.90 [facility] Comment on above: Performed By: #### U A, UMICAO #### [facility] [address] [place] [address] Civil Division Commander Deputy Sheriff: Brandan Ugalde MD GFR, Amer 54 mL/min Low >60 [facility] Comment on above: Performed By: #### U A, UMICAO #### [facility] [address] [place] [address] Civil Division Commander Deputy Sheriff: Brandan Ugalde MD GFR,non Amer 45 mL/min Low >60 [facility] Comment on above: Performed By: #### U A, UMICAO #### [facility] [address] [place] [address] Civil Division Commander Deputy Sheriff: Brandan Ugalde MD Glucose [Mass/Vol] 105 mg/dL High 70-99 [facility] Comment on above: Performed By: #### U A, UMICAO #### [facility] [address] [place] [address] Civil [employer] Commander Deputy Sheriff: Brandan Ugalde MD Potassium [Moles/Vol] 3.7 mmol/L Normal 3.7-5.3 [facility] Comment on above: Performed By: #### U A, UMICAO #### [facility] [address] [place] [address] Civil [employer] Commander Deputy Sheriff: Brandan Ugalde MD Sodium [Moles/Vol] 144 mmol/L Normal 135-144 [facility] Comment on above: Performed By: #### U A UMICAO #### [facility] [address] [place] [address] Civil [employer] Commander Deputy Sheriff: Brandan Ugalde MD Urea nitrogen [Mass/Vol] 19 mg/dL Normal 6-20 [facility] Comment on above: Performed By: #### U A, UMICAO #### [facility] [address] [place] [address] Civil [employer] Commander Deputy Sheriff: Brandan Ugalde MD BUN/CRE Ratio NOT REPORTED Normal 9-20 [facility] Comment on above: Performed By: #### U A, UMICAO #### [facility] [address] [place] [address] Civil [employer] Commander Deputy Sheriff: Brandan Ugalde MD Staging: NOT REPORTED Normal [facility] Comment on above: Performed By: #### U A, UMICAO #### [facility] [address] [place] [address] [phone] Civil [employer] Commander Deputy Sheriff: Brandan Ugalde MD CBC auto differentialon 09-06 Absolute Eos # 0.22 [facility] th Absolute Immature Granulocyte 0.00 [facility] Absolute Lymph # 2.04 [facility] Absolute Fleming # 0.72 [facility] Basophils (Bld) [#/Vol] 0.00 10*3/uL [facility] Basophils/100 WBC (Bld) 0 % 0 - 2 % [facility] Differential Type NOT REPORTED [facility] Eosinophils/100 WBC (Bld) 4 % 1 - 4 % [facility] Hematocrit (Bld) [Volume fraction] 34.4 % Low 36.3 - 47.1 % [facility] Hemoglobin.gastroint estinal spec 1 Ql (Stl) 11.5 g/dL Low 11.9 - 15.1 g/dL [facility] Immature granulocytes/100 WBC (Bld) 0 % 0 [facility] Interpretation and review of laboratory results Abnormal [facility] Lymphocytes/100 WBC (Bld) 37 % 24 - 44 % [facility] MCH (RBC) [Entitic mass] 28.6 pg 25.2 - 33.5 pg [facility] MCHC (RBC) [Mass/Vol] 33.4 g/dL 28.4 - 34.8 g/dL [facility] MCV (RBC) [Entitic vol] 85.6 fL 82.6 - 102.9 fL [facility] Monocytes/100 WBC (Bld) 13 % High 1 - 7 % [facility] SDI Morphology Dontrell (Bld) [Interp] Normal [facility] NRBC Automated 0.0 0.0 per 100 WBC [facility] Platelet distribution width (Bld) [Ratio] 13.5 % 11.8 - 14.4 % [facility] Platelet Estimate NOT REPORTED [facility] Platelet mean volume (Bld) [Entitic vol] NOT REPORTED 8.1 - 13.5 fL [facility] Platelets (Bld) [#/Vol] See Reflexed IPF Result [facility] RBC (Bld) [#/Vol] 4.02 10*6/uL 3.95 - 5.11 m/uL [facility] RBC (Bld) [#/Vol] NOT REPORTED [facility] Segmented neutrophils/100 WBC (Bld) 46 % 36 - 66 % [facility] SDI Segs Absolute 2.52 [facility] WBC (Bld) [#/Vol] 5.5 10*3/uL [facility] WBC (Bld) [#/Vol] NOT REPORTED [facility] CBC with Diffon 10-03-2021 Abs. Basophil 0.00 k/uL Normal 0.0-0.2 [facility] Comment on above: Performed By: #### U A, UMICAO #### [facility] [address] [place] [address] [employer] Commander Deputy Sheriff: Brandan Ugalde MD Abs.Imm.Granulocyte 0.00 k/uL Normal 0.00-0.30 [facility] Comment on above: Performed By: #### U A, UMICAO #### [address] [address] Civil Division Commander Deputy Sheriff: Brandan Ugalde MD Abs.Neutrophil (Seg) 2.52 k/uL Normal 1.8-7.7 [facility] Comment on above: Performed By: #### U A, UMICAO #### [address] [address] Civil Division Commander Deputy Sheriff: Brandan Ugalde MD Basophils/100 WBC (Bld) 0 % Normal 0-2 [facility] Comment on above: Performed By: #### U A, UMICAO #### [address] [address] Civil Division Commander Deputy Sheriff: Brandan Ugalde MD Eosinophils (Bld) [#/Vol] 0.22 10*3/uL Normal 0.0-0.4 [facility] Comment on above: Performed By: #### U A, UMICAO #### [address] [address] Civil Division Commander Deputy Sheriff: Brandan Ugalde MD Eosinophils/100 WBC (Bld) 4 % Normal 1-4 [facility] Comment on above: Performed By: #### U A, UMICAO #### [address] [address] Civil Division Commander Deputy Sheriff: Brandan Ugalde MD Immature granulocytes/100 WBC (Bld) 0 % Normal 0 [facility] Comment on above: Performed By: #### U A, UMICAO #### [address] [address] Civil Division Commander Deputy Sheriff: Brandan Ugalde MD Lymphocytes (Bld) [#/Vol] 2.04 10*3/uL Normal 1.0-4.8 [facility] Comment on above: Performed By: #### U A, UMICAO #### [address] [address] Civil Division Commander Deputy Sheriff: Brandan Ugalde MD Lymphocytes/100 WBC (Bld) 37 % Normal 24-44 [facility] Comment on above: Performed By: #### U A, UMICAO #### [address] [address] Civil Division Commander Deputy Sheriff: Brandan Ugalde MD Monocytes (Bld) [#/Vol] 0.72 10*3/uL Normal 0.1-0.8 [facility] Comment on above: Performed By: #### U A, UMICAO #### [address] [address] Civil Division Commander Deputy Sheriff: Brandan Ugalde MD Monocytes/100 WBC (Bld) 13 % High 1-7 [facility] Comment on above: Performed By: #### U A, UMICAO #### [address] [address] Civil Division Commander Deputy Sheriff: Brandan Ugalde MD Morphology Dontrell (Bld) [Interp] Normal Normal [facility] Comment on above: Performed By: #### U A, UMICAO #### [facility] [address] [place] [address] Civil Division Commander Deputy Sheriff: Brandan Ugalde MD Neutrophil (Seg) 46 % Normal 36-66 [facility] Comment on above: Performed By: #### U APRATIBHA #### [address] [address] Civil Division Commander Deputy Sheriff: Brandan Ugalde MD Erythrocyte distribution width (RBC) [Ratio] 13.5 % Normal 11.8-14.4 [facility] Comment on above: Performed By: #### U A, FRANKO #### [facility] [address] [place] [address] Civil [employer] Commander Deputy Sheriff: Brandan Ugalde MD Hematocrit (Bld) [Volume fraction] 34.4 % Low 36.3-47.1 [facility] Comment on above: Performed By: #### U APRATIBHA #### [address] [address] Civil Division Commander Deputy Sheriff: Brandan Ugalde MD Hemoglobin (Bld) [Mass/Vol] 11.5 g/dL Low 11.9-15.1 [facility] Comment on above: Performed By: #### U APRATIBHA #### [address] [address] Civil Division Commander Deputy Sheriff: Brandan Ugalde MD MCH (RBC) [Entitic mass] 28.6 pg Normal 25.2-33.5 [facility] Comment on above: Performed By: #### U A, FRANKO #### [address] [address] Civil Division Commander Deputy Sheriff: Brandan Ugalde MD MCHC (RBC) [Mass/Vol] 33.4 g/dL Normal 28.4-34.8 [facility] Comment on above: Performed By: #### U A, UMICAO #### [facility] [address] [place] [address] Civil Division Commander Deputy Sheriff: Brandan Ugalde MD MCV (RBC) [Entitic vol] 85.6 fL Normal 82.6-102.9 [facility] Comment on above: Performed By: #### U PRATIBHA Phipps #### [address] [address] Civil Division Commander Deputy Sheriff: Brandan Ugalde MD NRBC Automated 0.0 per 100 WBC Normal 0.0 [facility] Comment on above: Performed By: #### PRATIBHA Claudio #### [address] [address] Civil Division Commander Deputy Sheriff: Brandan Ugalde MD Platelet Count See Reflexed IPF Result Normal 138-453 [facility] Comment on above: Performed By: #### PRATIBHA Claudio #### [address] [address] Civil Division Commander Deputy Sheriff: Brandan Ugalde MD RBC (Bld) [#/Vol] 4.02 10*6/uL Normal 3.95-5.11 [facility] Comment on above: Performed By: #### PRATIBHA Cluadio #### [address] [address] Civil Division Commander Deputy Sheriff: Brandan Ugalde MD WBC (Bld) [#/Vol] 5.5 10*3/uL Normal 3.5-11.3 [facility] Comment on above: Performed By: #### PRATIBHA Claudio #### [address] [address] Civil Division Commander Deputy Sheriff: Brandan Ugalde MD Auto Diff Performed NOT REPORTED Normal [facility] Comment on above: Performed By: #### PRATIBHA Claudio #### [address] [address] Civil Division Commander Deputy Sheriff: Brandan Ugalde MD MPV NOT REPORTED Normal 8.1-13.5 [facility] Comment on above: Performed By: #### U APRATIBHA #### [address] [place] [address] Civil Division Commander Deputy Sheriff: Brandan Ugalde MD Platelet Comment NOT REPORTED Normal [facility] Comment on above: Performed By: #### U A, UMICAO #### [facility] [address] [place] [address] Civil Division Commander Deputy Sheriff: Brandan Ugalde MD RBC morphology finding Nom (Bld) NOT REPORTED Normal [facility] Comment on above: Performed By: #### U A, UMICAO #### [facility] [address] [place] [address] Civil Division Commander Deputy Sheriff: Brandan Ugalde MD WBC Morphology NOT REPORTED Normal [facility] Comment on above: Performed By: #### U A, UMICAO #### [facility] [address] [place] [address] Civil Division Commander Deputy Sheriff: Brandan Ugalde MD Cult, Bloodon 10-03-2021 Cult, Blood Specimen Description .BLOOD Special Requests L HAND 2ML Culture NO GROWTH 5 DAYS Report Status FINAL 10/03/2021 [facility] Comment on above: Performed By: #### U A, UMICAO #### [address] [address] Civil Division Commander Deputy Sheriff: Brandan Ugalde MD Cult,Bloodon 10-03-2021 Cult,Blood Specimen Description .BLOOD Special Requests NOT REPORTED Culture NO GROWTH 5 DAYS Report Status FINAL 10/03/2021 [facility] Comment on above: Performed By: #### U A, UMICAO #### [facility] [address] [place] [address] Civil Division Commander Deputy Sheriff: Brandan Ugalde MD Culture, Blood 1on 2 Bacteria identified Cx Nom (Unsp spec) NO GROWTH 5 DAYS [facility] Special Requests NOT REPORTED [facility] Specimen Description .BLOOD [facility] Culture, Blood 2on 2 Bacteria identified Cx Nom (Unsp spec) NO GROWTH 5 DAYS [facility] Special Requests L HAND 2ML [facility] Specimen Description .BLOOD [facility] Immature Platelet Fractionon 10-03-2021 Platelet, Fluorescence Platelet clumps present, count appears adequate. [facility] Comment on above: ORDERED BY LAB Platelet, Immature Fraction NOT REPORTED 1.1 - 10.3 % [facility] PLT, Immature Fract.on 10-03 Platelet, Fluoresc. Platelet clumps present, count appears adequate. Normal 138-453 [facility] Comment on above: Result Comment: ORDE RED BY LAB Performed By: #### U A, UMICAO #### [facility] [address] [place], [place] [phone] Civil Division Commander Deputy Sheriff: Brandan Ugalde MD PLT, Immature Fract. NOT REPORTED Normal 1.1-10.3 [facility] Comment on above: Performed By: #### U A, UMICAO #### [facility] [address] [place], [place] [phone] Civil Division Commander Deputy Sheriff: Brandan Ugalde MD POC Glucose Fingerstickon Glucose [Mass/Vol] 236 mg/dL High 65 - 105 mg/dL [facility] Interpretation and review of laboratory results Abnormal [facility] Glucose [Mass/Vol] 89 mg/dL 65 - 105 mg/dL [facility] Phosphoruson 10-03-2021 Phosphate [Mass/Vol] 4.2 mg/dL 2.6 - 4.5 mg/dL [facility] Phosphorus, Inorg.on 022 Phosphorus, Inorg. 4.2 mg/dL Normal 2.6-4.5 [facility] Comment on above: Performed By: #### U A, UMICAO #### [facility] [address] [place], [place] [phone] Civil Division Commander Deputy Sheriff: Brandan Ugalde MD C DIFF TOXIN/ANTIGENon 10-02 C DIFF AG + TOXIN Negative NEGATIVE [facility] sheryl Comment on above: No C. difficile anti gen and Toxin Detected. Specimen Description .FECES [facility] C diff Ag + Toxinon 10-02-19 C diff Ag + Toxin Negative Normal NEG [facility] Comment on above: Result Comment: No C . difficile antigen and Toxin Detected. Performed By: #### U A, PRATIBHA #### [facility] [address] [place] [address] Civil Division Commander Deputy Sheriff: Brandan Ugalde MD CBC auto differentialon 09-05 Absolute Eos # 0.11 [facility] Absolute Immature Granulocyte 0.08 [employer] Absolute Lymph # 1.84 [employer] [facility] Absolute Fleming # 0.59 [employer] [facility] lth Basophils (Bld) [#/Vol] 0.03 10*3/uL [employer] Basophils/100 WBC (Bld) 1 % 0 - 2 % [employer] Differential Type NOT REPORTED [employer] Eosinophils/100 WBC (Bld) 2 % 1 - 4 % [employer] Hematocrit (Bld) [Volume fraction] 31.2 % Low 36.3 - 47.1 % [employer] Hemoglobin.gastroint estinal spec 1 Ql (Stl) 10.4 g/dL Low 11.9 - 15.1 g/dL [employer] Immature granulocytes/100 WBC (Bld) 2 % High 0 [employer] Interpretation and review of laboratory results Abnormal [employer] Lymphocytes/100 WBC (Bld) 35 % 24 - 43 % [employer] MCH (RBC) [Entitic mass] 28.7 pg 25.2 - 33.5 pg [employer] MCHC (RBC) [Mass/Vol] 33.3 g/dL 28.4 - 34.8 g/dL [employer] MCV (RBC) [Entitic vol] 86.2 fL 82.6 - 102.9 fL [employer] Monocytes/100 WBC (Bld) 11 % 3 - 12 % [employer] NRBC Automated 0.0 0.0 per 100 WBC [employer] Platelet distribution width (Bld) [Ratio] 13.7 % 11.8 - 14.4 % [employer] Platelet Estimate NOT REPORTED [employer] Platelet mean volume (Bld) [Entitic vol] 9.0 fL 8.1 - 13.5 fL [employer] Platelets (Bld) [#/Vol] 92 10*3/uL Low [employer] RBC (Bld) [#/Vol] 3.62 10*6/uL Low 3.95 - 5.11 m/uL [facility] RBC (Bld) [#/Vol] NOT REPORTED [facility] Segmented neutrophils/100 WBC (Bld) 49 % 36 - 65 % [facility] [#/Vol] 5.2 10*3/uL [facility] WBC (Bld) [#/Vol] NOT REPORTED [facility] CBC with Diffon 10-02-2021 Abs. Basophil 0.03 k/uL Normal 0.00-0.20 [facility] Comment on above: Performed By: #### U A, UMICAO #### [address] [address] Civil Division Commander Deputy Sheriff: Brandan Ugalde MD Abs.Imm.Granulocyte 0.08 k/uL Normal 0.00-0.30 [facility] Comment on above: Performed By: #### U A UMICAO #### [facility] [address] [place] [address] Civil Division Commander Deputy Sheriff: Brandna Ugalde MD Abs.Neutrophil (Seg) 2.58 k/uL Normal 1.50-8.10 [facility] Comment on above: Performed By: #### U A, UMICAO #### [facility] [address] [place] [address] Civil [employer] Commander Deputy Sheriff: Brandan Ugalde MD Basophils/100 WBC (Bld) 1 % Normal 0-2 [facility] Comment on above: Performed By: #### U A, UMICAO #### [facility] [address] [place] [address] Civil Division Commander Deputy Sheriff: Brandan Ugalde MD Eosinophils (Bld) [#/Vol] 0.11 10*3/uL Normal 0.00-0.44 [facility] Comment on above: Performed By: #### U A, UMICAO #### [facility] [address] [place] [address] Civil Division Commander Deputy Sheriff: Brandan Ugalde MD Eosinophils/100 WBC (Bld) 2 % Normal 1-4 [facility] Comment on above: Performed By: #### U A, UMICAO #### [address] [address] Civil Division Commander Deputy Sheriff: Brandan Ugalde MD Immature granulocytes/100 WBC (Bld) 2 % High 0 [facility] Comment on above: Performed By: #### U A, UMICAO #### [address] [address] Civil Division Commander Deputy Sheriff: Brandan Ugalde MD Lymphocytes (Bld) [#/Vol] 1.84 10*3/uL Normal 1.10-3.70 [facility] Comment on above: Performed By: #### U A, UMICAO #### [address] [address] Civil Division Commander Deputy Sheriff: Brandan Ugalde MD Lymphocytes/100 WBC (Bld) 35 % Normal 24-43 [facility] Comment on above: Performed By: #### U A, UMICAO #### [address] [address] Civil Division Commander Deputy Sheriff: Brandan Ugalde MD Monocytes (Bld) [#/Vol] 0.59 10*3/uL Normal 0.10-1.20 [facility] Comment on above: Performed By: #### U A, UMICAO #### [address] [address] Civil Division Commander Deputy Sheriff: Brandan Ugalde MD Monocytes/100 WBC (Bld) 11 % Normal 3-12 [facility] Comment on above: Performed By: #### U A, UMICAO #### [address] [address] Civil Division Commander Deputy Sheriff: Brandan Ugalde MD Neutrophil (Seg) 49 % Normal 36-65 [facility] Comment on above: Performed By: #### U A, FRANKO #### [facility] [address] [place] [address] Civil Division Commander Deputy Sheriff: Brandan Ugalde MD Erythrocyte distribution width (RBC) [Ratio] 13.7 % Normal 11.8-14.4 [facility] Comment on above: Performed By: #### U A, FRANKO #### [facility] [address] [place] [address] Civil [employer] Commander Deputy Sheriff: Brandan Ugalde MD Hematocrit (Bld) [Volume fraction] 31.2 % Low 36.3-47.1 [facility] Comment on above: Performed By: #### U A, PRATIBHA #### [facility] [address] [place] [address] Civil Division Commander Deputy Sheriff: Brandan Ugalde MD Hemoglobin (Bld) [Mass/Vol] 10.4 g/dL Low 11.9-15.1 [facility] Comment on above: Performed By: #### U A, PRATIBHA #### [address] [address] Civil Division Commander Deputy Sheriff: Brandan Ugalde MD MCH (RBC) [Entitic mass] 28.7 pg Normal 25.2-33.5 [facility] Comment on above: Performed By: #### U A, FRANKO #### [address] [address] Civil Division Commander Deputy Sheriff: Brandan Ugalde MD MCHC (RBC) [Mass/Vol] 33.3 g/dL Normal 28.4-34.8 [facility] Comment on above: Performed By: #### U A, UMJOSEO #### [facility] [address] [place] [address] Civil Division Commander Deputy Sheriff: Brandan Ugalde MD MCV (RBC) [Entitic vol] 86.2 fL Normal 82.6-102.9 [facility] Comment on above: Performed By: #### U PRATIBHA Phipps #### [address] [address] Civil Division Commander Deputy Sheriff: Brandan Ugalde MD NRBC Automated 0.0 per 100 WBC Normal 0.0 [facility] Comment on above: Performed By: #### U APRATIBHA #### [address] [address] Civil Division Commander Deputy Sheriff: Brandan Ugalde MD Platelet mean volume (Bld) [Entitic vol] 9.0 fL Normal 8.1-13.5 [facility] Comment on above: Performed By: #### U PRATIBHA Phipps #### [address] [address] Civil Division Commander Deputy Sheriff: Brandan Ugalde MD Platelets (Bld) [#/Vol] 92 10*3/uL Low 138-453 [facility] Comment on above: Performed By: #### PRATIBHA Claudio #### [address] [address] Civil Division Commander Deputy Sheriff: Brandan Ugalde MD RBC (Bld) [#/Vol] 3.62 10*6/uL Low 3.95-5.11 [facility] Comment on above: Performed By: #### PRATIBHA Claudio #### [address] [address] Civil Division Commander Deputy Sheriff: Brandan Ugalde MD WBC (Bld) [#/Vol] 5.2 10*3/uL Normal 3.5-11.3 [facility] Comment on above: Performed By: #### U APRATIBHA #### [address] [address] Civil Division Commander Deputy Sheriff: Brandan Ugalde MD Auto Diff Performed NOT REPORTED Normal [facility] Comment on above: Performed By: #### U A, UMICAO #### [facility] [address] [place] [address] Civil Division Commander Deputy Sheriff: Brandan Ugalde MD Platelet Comment NOT REPORTED Normal [facility] Comment on above: Performed By: #### U A, UMICAO #### [facility] [address] [place] [address] Civil Division Commander Deputy Sheriff: Brandan Ugalde MD RBC morphology finding Nom (Bld) NOT REPORTED Normal [facility] Comment on above: Performed By: #### U A, UMICAO #### [facility] [address] [place] [address] Civil Division Commander Deputy Sheriff: Brandan Ugalde MD WBC Morphology NOT REPORTED Normal [facility] Comment on above: Performed By: #### U A, UMICAO #### [facility] [place] [address] Civil Division Commander Deputy Sheriff: Brandan Ugalde MD Gastrointestinal Panel, [facility] 10-02-2021 Campylobacter PCR NEGATIVE: No Campylobacter spp. (jejuni or coli) DNA Detected NEGATIVE: No Campylobacter spp. (jejuni or coli) DNA Detecte [facility] E Coli Enterotoxigenic PCR NEGATIVE: No Enterotoxigenic E. coli (ETEC) Heat-labile and heat-stable (LT/ST) DNA Detected NEGATIVE: No Enterotoxigenic E. coli (ETEC) Heat-labile and [facility] Plesiomonas Shigelloides PCR Negative NEGATIVE: No Plesionomas shigelloides DNA Detected [facility] Salmonella PCR Negative NEGATIVE: No Salmonella spp. DNA Detected [facility] Shigatoxin Gene PCR Negative NEGATIVE : No Shiga toxin-producing gene(s) Detected [facility] Shigella Sp PCR Negative NEGATIVE: No Shigella spp. / EIEC DNA Detected [facility] Specimen Description .FECES [facility] Vibrio PCR NEGATIVE: No Vibrio (V. vulnificus, V, parahaemolyticus and V. cholerae) DNA Detected NEGATIVE: No Vibrio (V. vulnificus, V, parahaemolyticus and [facility] Yersinia Enterocolitica PCR Negative NEGATIVE: No Yersinia enterocolitica DNA Detected [facility] Haptoglobinon 10-02-2021 Haptoglobin 346 mg/dL High 30-200 [facility] Comment on above: Performed By: #### P TT, FIB, PT, LYTE, DBILI, TBIL, RETCT, CBC, LD, HAPT, PATH ####[facility] [address] [place], [place] [id number] Lab Director: Brandan Ugalde MD Haptoglobin 346 mg/dL High 30 - 200 mg/dL [facility] Interpretation and review of laboratory results Abnormal [facility] POC Glucose Fingerstickon Glucose [Mass/Vol] 200 mg/dL High 65 - 105 mg/dL [facility] Interpretation and review of laboratory results Abnormal [facility] Glucose [Mass/Vol] 131 mg/dL High 65 - 105 mg/dL [facility] Interpretation and review of laboratory results Abnormal [facility] Glucose [Mass/Vol] 122 mg/dL High 65 - 105 mg/dL [facility] Interpretation and review of laboratory results Abnormal [facility] Glucose [Mass/Vol] 119 mg/dL High 65 - 105 mg/dL [facility] Interpretation and review of laboratory results Abnormal [facility] Glucose [Mass/Vol] 135 mg/dL High 65 - 105 mg/dL [facility] Interpretation and review of laboratory results Abnormal [facility] Phosphoruson 10-02-2021 Phosphate [Mass/Vol] 3.0 mg/dL 2.6 - 4.5 mg/dL [facility] Phosphorus, Inorg.on 022 Phosphorus, Inorg. 3.0 mg/dL Normal 2.6-4.5 [facility] Comment on above: Performed By: #### U A, UMICAO #### [facility] [address] [place], [place] [id number] Civil Division Commander Deputy Sheriff: Brandan Ugalde MD RENAL FUNCTION PANELon 10-02 Albumin [Mass/Vol] 2.5 g/dL Low 3.5 - 5.2 g/dL [facility] Anion gap [Moles/Vol] 9 mmol/L 9 - 17 mmol/L [facility] Calcium [Mass/Vol] 8.7 mg/dL 8.6 - 10.4 mg/dL [facility] Chloride [Moles/Vol] 109 mmol/L High 98 - 107 mmol/L [facility] CO2 [Moles/Vol] 23 mmol/L 20 - 31 mmol/L [facility] Creatinine [Mass/Vol] 1.46 mg/dL High 0.50 - 0.90 mg/dL [facility] GFR 48 mL/min Low >60 [facility] [employer] [facility] GFR Non- 39 mL/min Low >60 [facility] GFR/1.73 sq M.predicted MDRD (S/P/Bld) [Vol rate/Area] [facility] Comment on above: Average GFR for 40-4 9 years old: 99 mL/min/1.73sq m Chronic Kidney Disease: <60 mL/min/1.73sq m Kidney failure: <15 mL/min/1.73sq m eGFR calculated using average adult body mass. Additional eGFR calculator available at: http://www.inWe[employer]/multiple_crcl_2012.htm GFR/1.73 sq M.predicted MDRD (S/P/Bld) [Vol rate/Area] NOT REPORTED [facility] Glucose [Mass/Vol] 109 mg/dL High 70 - 99 mg/dL [facility] SDI Interpretation and review of laboratory results Abnormal [employer] Phosphate [Mass/Vol] 3.2 mg/dL 2.6 - 4.5 mg/dL [facility] Potassium [Moles/Vol] 3.6 mmol/L Low 3.7 - 5.3 mmol/L [facility] Sodium [Moles/Vol] 141 mmol/L 135 - 144 mmol/L [facility] Urea nitrogen (BldV) [Mass/Vol] 22 mg/dL High 6 - 20 mg/dL [facility] Urea nitrogen/Creatinine (Bld) [Mass ratio] NOT REPORTED [facility] SDI Renal Function Panelon 10-02 (cont.) Normal [facility] Comment on above: Result Comment: Aver age GFR for 40-49 years old: 99 mL/min/1.73sq m Chronic Kidney Disease: <60 mL/min/1.73sq m Kidney failure: <15 mL/min/1.73sq m eGFR calculated using average adult body mass. Additional eGFR calculator available at: http://www.[employer]Ste[employer].com/multiple_crcl_2012.htm Performed By: #### PRATIBHA Claudio #### [facility] [address] [place] [address] Civil Division Commander Deputy Sheriff: Brandan Ugalde MD Albumin [Mass/Vol] 2.5 g/dL Low 3.5-5.2 [facility] Comment on above: Performed By: #### PRATIBHA Claudio #### [facility] [address] [place] [address] Civil [employer] Commander Deputy Sheriff: Brandan Ugalde MD Anion gap [Moles/Vol] 9 mmol/L Normal 9-17 [facility] Comment on above: Performed By: #### PRATIBHA Claudio #### [facility] [address] [place] [address] Civil Division Commander Deputy Sheriff: Brandan Ugalde MD Calcium [Mass/Vol] 8.7 mg/dL Normal 8.6-10.4 [facility] Comment on above: Performed By: #### PRATIBHA Claudio #### [facility] [address] [place] [address] Civil [employer] Commander Deputy Sheriff: Brandan Ugalde MD Chloride [Moles/Vol] 109 mmol/L High 98-107 [facility] Comment on above: Performed By: #### PRATIBHA Claudio #### [facility] [address] [place] [address] [employer] Commander Deputy Sheriff: Brandan Ugalde MD CO2 [Moles/Vol] 23 mmol/L Normal 20-31 [facility] Comment on above: Performed By: #### PRATIBHA Claudio #### [facility] [address] [place] [address] Civil Division Commander Deputy Sheriff: Brandan Ugalde MD Creatinine [Mass/Vol] 1.46 mg/dL High 0.50-0.90 [facility] Comment on above: Performed By: #### U ACOLLEENICAO #### [facility] [address] [place] [address] Civil Division Commander Deputy Sheriff: Brandan Ugalde MD GFR, Amer 48 mL/min Low >60 [facility] Comment on above: Performed By: #### U A UMICAO #### [facility] [address] [place] [address] Civil Division Commander Deputy Sheriff: Brandan Ugalde MD GFR,non Amer 39 mL/min Low >60 [facility] Comment on above: Performed By: #### U A UMICAO #### [facility] [address] [place] [address] Civil Division Commander Deputy Sheriff: Brandan Ugalde MD Glucose [Mass/Vol] 109 mg/dL High 70-99 [facility] Comment on above: Performed By: #### U AFRANKO #### [facility] [address] [place] [address] Civil Division Commander Deputy Sheriff: Brandan Ugalde MD Phosphorus, Inorg. 3.2 mg/dL Normal 2.6-4.5 [facility] Comment on above: Performed By: #### U ACOLLEENICAO #### [facility] [address] [place] [address] Civil Division Commander Deputy Sheriff: Brandan Ugalde MD Potassium [Moles/Vol] 3.6 mmol/L Low 3.7-5.3 [facility] Comment on above: Performed By: #### U A UMICAO #### [facility] [address] [place] [address] Civil Division Commander Deputy Sheriff: Brandan Ugalde MD Sodium [Moles/Vol] 141 mmol/L Normal 135-144 [facility] Comment on above: Performed By: #### U A UMICAO #### [facility] [address] [place] [address] Civil Division Commander Deputy Sheriff: Brandan Ugalde MD Urea nitrogen [Mass/Vol] 22 mg/dL High -20 [facility] Comment on above: Performed By: #### U A, UMICAO #### [facility] [address] [place] [address] Civil Division Commander Deputy Sheriff: Brandan Ugalde MD BUN/CRE Ratio NOT REPORTED Normal 05-24 [facility] Comment on above: Performed By: #### U A, UMICAO #### [facility] [address] [place] [address] Civil [employer] Commander Deputy Sheriff: Brandan Ugalde MD Staging: NOT REPORTED Normal [facility] Comment on above: Performed By: #### U A, UMICAO #### [facility] [address] [place] [address] [employer] Commander Deputy Sheriff: Brandan Ugalde MD Stool PCR Batteryon 10-02-19 22 Campylobacter sp PCR NEGATIVE: No Campylobacter spp. (jejuni or coli) DNA Detected Normal CAMNEG [facility] Comment on above: Performed By: #### U AFRANKO #### [address] [address] Civil Division Commander Deputy Sheriff: Brandan Ugalde MD E coli enterotox PCR NEGATIVE: No Enterotoxigenic E. coli (ETEC) Heat-labile and heat-stable (LT/ST) Normal EECNEG [facility] Comment on above: Result Comment: DNA Detected Performed By: #### U A, UMICAO #### [facility] [address] [place] [address] Civil Division Commander Deputy Sheriff: Brandan Ugalde MD Plesiomonas sp PCR Negative Normal PLENEG [facility] Comment on above: Performed By: #### U A, UMICAO #### [facility] [address] [place] [address] Civil Division Commander Deputy Sheriff: Brandan Ugalde MD Salmonella sp PCR Negative Normal SALNEG [facility] Comment on above: Performed By: #### U A, UMICAO #### [address] [address] Civil Division Commander Deputy Sheriff: Brandan Ugalde MD Shigatoxin gene PCR Negative Normal STXNEG [facility] Comment on above: Performed By: #### U A, UMICAO #### [address] [address] Civil Division Commander Deputy Sheriff: Brandan Ugalde MD Shigella sp PCR Negative Normal SHINEG [facility] Comment on above: Performed By: #### U A, UMICAO #### [address] [address] Civil Division Commander Deputy Sheriff: Brandan Ugalde MD Vibrio sp PCR NEGATIVE: No Vibrio (V. vulnificus, V, parahaemolyticus and V. cholerae) DNA Normal VIBNEG [facility] Comment on above: Result Comment: Dete cted Performed By: #### U A, UMICAO #### [address] [address] Civil Division Commander Deputy Sheriff: Brandan Ugalde MD Yersinia gene PCR Negative Normal YERNEG [facility] Comment on above: Performed By: #### U A, UMICAO #### [address] [address] Civil Division Commander Deputy Sheriff: Brandan Ugalde MD APTTon 10-01-2021 aPTT Coag (Bld) [Time] 22.1 s Normal 20.5-30.5 [facility] Comment on above: Result Comment: IV Heparin Therapy Range: 48.6-77.8 Performed By: #### L ACWB #### [address] [address] Civil Division Commander Deputy Sheriff: Brandan Ugalde MD aPTT Coag (Bld) [Time] 22.1 s [facility] Comment on above: IV Heparin Therapy Range: 48.6-77.8 [facility] BETA-HYDROXYBUTERATEon 10-01 Beta-Hydroxybutyrate 0.2 mmol/L 0.02 - 0.27 mmol/L [facility] Beta Hydroxybutyrateon 10-01 Beta Hydroxybutyrate 0.20 mmol/L Normal 0.02-0.[address] [facility] Comment on above: Performed By: #### V BG #### [address] [address] [place] [address] Civil Division Commander Deputy Sheriff: Brandan Ugalde MD Bilirubin, Directon 10-01-19 22 Bilirubin.indirect [Mass/Vol] 0.08 mg/dL Normal <0.31 [facility] Comment on above: Performed By: #### P TT, FIB, PT, LYTE, DBILI, TBIL, RETCT, CBC, LD, HAPT, PATH ####[address] [id number] Lab Director: Brandan Ugalde MD Bilirubin.indirect [Mass/Vol] 0.08 mg/dL <0.31 [facility] Bilirubin, Totalon 2 Bilirubin [Mass/Vol] 0.17 mg/dL Low 0.3-1.2 [facility] Comment on above: Performed By: #### P TT, FIB, PT, LYTE, DBILI, TBIL, RETCT, CBC, LD, HAPT, PATH ####[address] [id number] Lab Director: Brandan Ugalde MD Bilirubin [Mass/Vol] 0.17 mg/dL Low 0.3 - 1.2 mg/dL [facility] C diff Ag + Toxinon 10-01-19 Specimen Description .FECES Normal [facility] Comment on above: Performed By: #### U PRATIBHA Phipps #### [address] [address] Civil Division Commander Deputy Sheriff: Brandan Ugalde MD CBCon 10-01-2021 Erythrocyte distribution width (RBC) [Ratio] 13.8 % Normal 11.8-14.4 [facility] Comment on above: Performed By: #### P TT, FIB, PT, LYTE, DBILI, TBIL, RETCT, CBC, LD, HAPT, PATH ####[address] [address] lab Director: Brandan Ugalde MD Hematocrit (Bld) [Volume fraction] 32.2 % Low 36.3-47.1 [facility] Comment on above: Performed By: #### P TT, FIB, PT, LYTE, DBILI, TBIL, RETCT, CBC, LD, HAPT, PATH ####[address] [id number])[phone] Director: Brandan Ugalde MD Hemoglobin (Bld) [Mass/Vol] 10.9 g/dL Low 11.9-15.1 [facility] Comment on above: Performed By: #### P TT, FIB, PT, LYTE, DBILI, TBIL, RETCT, CBC, LD, HAPT, PATH ####[place] [address] lab Director: Brandan Ugalde MD MCH (RBC) [Entitic mass] 29.1 pg Normal 25.2-33.5 [facility] Comment on above: Performed By: #### P TT, FIB, PT, LYTE, DBILI, TBIL, RETCT, CBC, LD, HAPT, PATH ####[place] [address] lab Director: Brandan Ugalde MD MCHC (RBC) [Mass/Vol] 33.9 g/dL Normal 28.4-34.8 [facility] Comment on above: Performed By: #### P TT, FIB, PT, LYTE, DBILI, TBIL, RETCT, CBC, LD, HAPT, PATH ####[address] [id number] Lab Director: Brandan Ugalde MD MCV (RBC) [Entitic vol] 85.9 fL Normal 82.6-102.9 [facility] Comment on above: Performed By: #### P TT, FIB, PT, LYTE, DBILI, TBIL, RETCT, CBC, LD, HAPT, PATH ####[address] [address] Lab Director: Brandan Ugalde MD NRBC Automated 0.0 per 100 WBC Normal 0.0 [facility] Comment on above: Performed By: #### P TT, FIB, PT, LYTE, DBILI, TBIL, RETCT, CBC, LD, HAPT, PATH ####[address] [address] Lab Director: Brandan Ugalde MD Platelet mean volume (Bld) [Entitic vol] 10.4 fL Normal 8.1-13.5 [facility] Comment on above: Performed By: #### P TT, FIB, PT, LYTE, DBILI, TBIL, RETCT, CBC, LD, HAPT, PATH ####[address] [address] Lab Director: Brandan Ugalde MD Platelets (Bld) [#/Vol] 141 10*3/uL Normal 138-453 [facility] Comment on above: Performed By: #### P TT, FIB, PT, LYTE, DBILI, TBIL, RETCT, CBC, LD, HAPT, PATH ####[address] [address] Lab Director: Brandan Ugalde MD RBC (Bld) [#/Vol] 3.75 10*6/uL Low 3.95-5.11 [facility] Comment on above: Performed By: #### P TT, FIB, PT, LYTE, DBILI, TBIL, RETCT, CBC, LD, HAPT, PATH ####[address] [address] Lab Director: Brandan Ugalde MD WBC (Bld) [#/Vol] 4.8 10*3/uL Normal 3.5-11.3 [facility] Comment on above: Performed By: #### P TT, FIB, PT, LYTE, DBILI, TBIL, RETCT, CBC, LD, HAPT, PATH ####[facility] [address] [place] [address] Lab Director: Brandan Ugalde MD Hematocrit (Bld) [Volume fraction] 32.2 % Low 36.3 - 47.1 % [employer] Hemoglobin.gastroint estinal spec 1 Ql (Stl) 10.9 g/dL Low 11.9 - 15.1 g/dL [facility] Interpretation and review of laboratory results Abnormal [facility] MCH (RBC) [Entitic mass] 29.1 pg 25.2 - 33.5 pg [employer] MCHC (RBC) [Mass/Vol] 33.9 g/dL 28.4 - 34.8 g/dL [employer] MCV (RBC) [Entitic vol] 85.9 fL 82.6 - 102.9 fL [employer] NRBC Automated 0.0 0.0 per 100 WBC [employer] Platelet distribution width (Bld) [Ratio] 13.8 % 11.8 - 14.4 % [employer] Platelet mean volume (Bld) [Entitic vol] 10.4 fL 8.1 - 13.5 fL [employer] Platelets (Bld) [#/Vol] 141 10*3/uL [employer] RBC (Bld) [#/Vol] 3.75 10*6/uL Low 3.95 - 5.11 m/uL [employer] WBC (Bld) [#/Vol] 4.8 10*3/uL [employer] CBC auto differentialon 09-05 Absolute Eos # 0.05 [facility] th Absolute Immature Granulocyte 0.04 [employer] Absolute Lymph # 1.46 [employer] [facility] Absolute Fleming # 0.46 [facility] [facility] Basophils (Bld) [#/Vol] 10*3/uL [employer] Basophils/100 WBC (Bld) 1 % 0 - 2 % [employer] Differential Type NOT REPORTED [employer] Eosinophils/100 WBC (Bld) 1 % 1 - 4 % [employer] Hematocrit (Bld) [Volume fraction] 28.5 % Low 36.3 - 47.1 % [facility] Hemoglobin.gastroint estinal spec 1 Ql (Stl) 10.0 g/dL Low 11.9 - 15.1 g/dL [facility] Immature granulocytes/100 WBC (Bld) 1 % High 0 [facility] Interpretation and review of laboratory results Abnormal [facility] Lymphocytes/100 WBC (Bld) 37 % 24 - 43 % [facility] MCH (RBC) [Entitic mass] 29.6 pg 25.2 - 33.5 pg [facility] MCHC (RBC) [Mass/Vol] 35.1 g/dL High 28.4 - 34.8 g/dL [facility] MCV (RBC) [Entitic vol] 84.3 fL 82.6 - 102.9 fL [facility] Monocytes/100 WBC (Bld) 12 % 3 - 12 % [facility] NRBC Automated 0.0 0.0 per 100 WBC [facility] Platelet distribution width (Bld) [Ratio] 13.9 % 11.8 - 14.4 % [facility] Platelet Estimate NOT REPORTED [facility] Platelet mean volume (Bld) [Entitic vol] NOT REPORTED 8.1 - 13.5 fL [facility] Platelets (Bld) [#/Vol] See Reflexed IPF Result [facility] RBC (Bld) [#/Vol] 3.38 10*6/uL Low 3.95 - 5.11 m/uL [facility] RBC (Bld) [#/Vol] NOT REPORTED [facility] Segmented neutrophils/100 WBC (Bld) 48 % 36 - 65 % [facility]s [facility] [#/Vol] 3.9 10*3/uL [facility] WBC (Bld) [#/Vol] NOT REPORTED [facility] CBC with Diffon 10-01-2021 Abs. Basophil <0.03 Normal 0.00-0.20 [facility] Comment on above: Performed By: #### L ACWB #### [facility] [place] [address] Civil Division Commander Deputy Sheriff: Brandan Ugalde MD Abs.Imm.Granulocyte 0.04 k/uL Normal 0.00-0.30 [facility] Comment on above: Performed By: #### L ACWB #### [address] [address] Civil Division Commander Deputy Sheriff: Brandan Ugalde MD Abs.Neutrophil (Seg) 1.91 k/uL Normal 1.50-8.10 [facility] Comment on above: Performed By: #### L ACWB #### [address] [address] Civil Division Commander Deputy Sheriff: Brandan Ugalde MD Basophils/100 WBC (Bld) 1 % Normal 0-2 [facility] Comment on above: Performed By: #### L ACWB #### [address] [address] Civil Division Commander Deputy Sheriff: Brandan Ugalde MD Eosinophils (Bld) [#/Vol] 0.05 10*3/uL Normal 0.00-0.44 [facility] Comment on above: Performed By: #### L ACWB #### [address] [address] Civil Division Commander Deputy Sheriff: Brandan Ugalde MD Eosinophils/100 WBC (Bld) 1 % Normal 1-4 [facility] Comment on above: Performed By: #### L ACWB #### [address] [address] Civil Division Commander Deputy Sheriff: Brandan Ugalde MD Erythrocyte distribution width (RBC) [Ratio] 13.9 % Normal 11.8-14.4 [facility] Comment on above: Performed By: #### L ACWB #### [address] [address] Civil Division Commander Deputy Sheriff: Brandan Ugalde MD Hematocrit (Bld) [Volume fraction] 28.5 % Low 36.3-47.1 [facility] Comment on above: Performed By: #### L ACWB #### [address] [address] Civil Division Commander Deputy Sheriff: Brandan Ugalde MD Hemoglobin (Bld) [Mass/Vol] 10.0 g/dL Low 11.9-15.1 [facility] Comment on above: Performed By: #### L ACWB #### [address] [address] Civil Division Commander Deputy Sheriff: Brandan Ugalde MD Immature granulocytes/100 WBC (Bld) 1 % High 0 [facility] Comment on above: Performed By: #### L ACWB #### [address] [address] Civil Division Commander Deputy Sheriff: Brandan Ugalde MD Lymphocytes (Bld) [#/Vol] 1.46 10*3/uL Normal 1.10-3.70 [facility] Comment on above: Performed By: #### L ACWB #### [address] [address] Civil Division Commander Deputy Sheriff: Brandan Ugalde MD Lymphocytes/100 WBC (Bld) 37 % Normal 24-43 [facility] Comment on above: Performed By: #### L ACWB #### [address] [address] Civil Division Commander Deputy Sheriff: Brandan Ugalde MD MCH (RBC) [Entitic mass] 29.6 pg Normal 25.2-33.5 [facility] Comment on above: Performed By: #### L ACWB #### [address] [address] Civil Division Commander Deputy Sheriff: Brandan Ugalde MD MCHC (RBC) [Mass/Vol] 35.1 g/dL High 28.4-34.8 [facility] Comment on above: Performed By: #### L ACWB #### [address] [address] Civil Division Commander Deputy Sheriff: Brandan Ugalde MD MCV (RBC) [Entitic vol] 84.3 fL Normal 82.6-102.9 [facility] Comment on above: Performed By: #### L ACWB #### [address] [address] Civil Division Commander Deputy Sheriff: Brandan Ugalde MD Monocytes (Bld) [#/Vol] 0.46 10*3/uL Normal 0.10-1.20 [facility] Comment on above: Performed By: #### L ACWB #### [address] [address] Civil Division Commander Deputy Sheriff: Brandan Ugalde MD Monocytes/100 WBC (Bld) 12 % Normal 3-12 [facility] Comment on above: Performed By: #### L ACWB #### [address] [address] Civil Division Commander Deputy Sheriff: Brandan Ugalde MD Neutrophil (Seg) 48 % Normal 36-65 [facility] Comment on above: Performed By: #### L ACWB #### [address] [address] Civil Division Commander Deputy Sheriff: Brandan Ugalde MD NRBC Automated 0.0 per 100 WBC Normal 0.0 [facility] Comment on above: Performed By: #### L ACWB #### [address] [address] Civil Division Commander Deputy Sheriff: Brandan Ugalde MD Platelet Count See Reflexed IPF Result Normal 138-453 [facility] Comment on above: Performed By: #### L ACWB #### [address] [address] Civil Division Commander Deputy Sheriff: Brandan Ugalde MD RBC (Bld) [#/Vol] 3.38 10*6/uL Low 3.95-5.11 [facility] Comment on above: Performed By: #### L ACWB #### [address] [address] Civil Division Commander Deputy Sheriff: Brandan Ugalde MD WBC (Bld) [#/Vol] 3.9 10*3/uL Normal 3.5-11.3 [facility] Comment on above: Performed By: #### L ACWB #### [address] [address] Civil Division Commander Deputy Sheriff: Brandan Ugalde MD Auto Diff Performed NOT REPORTED Normal [facility] Comment on above: Performed By: #### L ACWB #### [address] [address] Civil Division Commander Deputy Sheriff: Brandan Ugalde MD MPV NOT REPORTED Normal 8.1-13.5 [facility] Comment on above: Performed By: #### L ACWB #### [address] [address] Civil Division Commander Deputy Sheriff: Brandan Ugalde MD Platelet Comment NOT REPORTED Normal [facility] Comment on above: Performed By: #### L ACWB #### [address] [address] Civil Division Commander Deputy Sheriff: Brandan Ugalde MD RBC morphology finding Nom (Bld) NOT REPORTED Normal [facility] Comment on above: Performed By: #### L ACWB #### [address] [address] Civil Division Commander Deputy Sheriff: Brandan Ugalde MD WBC Morphology NOT REPORTED Normal [facility] Comment on above: Performed By: #### L ACWB #### [address] [address] Civil Division Commander Deputy Sheriff: Brandan Ugalde MD CHLORIDE, URINE, RANDOMon Chloride, Ur 33 mmol/L [facility] Comment on above: No normal range esta [...] fluid in the pelvis. No pelvic lymphadenopathy. Peritoneum/Retrope ritoneum: The abdominal aorta is normal in caliber. [...] Beulah Felix DO 10/01/21 Final result Normal [facility] CT ABDOMEN PELVIS WO CONTRAS T Additional Contrast? Oralon 10-01-2021 1. No acute process in the abdomen or pelvis. 2. Trace bilateral pleural fluid and mild bibasilar atelectasis. RECOMMENDATIONS: Unavailable [facility] RIS CONSOLIDATED EXAMINATION: CT OF THE [...] fluid in the pelvis. No pelvic lymphadenopathy. Peritoneum/Retrope ritoneum: The abdominal aorta is normal in caliber. There is no retroperitoneal or mesenteric lymphadenopathy. Bones/Soft Tissues: There is a tiny fat containing umbilical hernia. No acute or suspicious osseous abnormality. PN RIS CONSOLIDATED Beulah Felix, DO - 10/01/2021 EXAMINATION: CT OF THE [...] fluid in the pelvis. No pelvic lymphadenopathy. Peritoneum/Retrope ritoneum: The abdominal aorta is normal in caliber. There is no retroperitoneal or mesenteric lymphadenopathy. Bones/Soft Tissues: There is a tiny fat containing umbilical hernia. No acute or suspicious osseous abnormality. IMPRESSION: 1. No acute process in the abdomen or pelvis. 2. Trace bilateral pleural fluid and mild bibasilar atelectasis. RECOMMENDATIONS: Unavailable [facility] Phone: Radiology Study observation (narrative) Correlor Phone: CT ABDOMEN PELVIS WO CONTRAS T Additional Contrast? OralOrdered By: Beulah Felix on 10-01-2021 Correlor Phone: Chloride,Random Uron 022 Chloride [Moles/Vol] 33 mmol/L Normal [facility] Comment on above: Result Comment: No n ormal range established. Performed By: #### U A, UMICAO #### [facility] [address] [place] [address] [id number] [employer] Commander Deputy Sheriff: Brandan Ugalde MD Comp Metabolic Pr/rfx MGon 0 10-01-2021 AST [Catalytic activity/Vol] 12 U/L Normal <32 [facility] Comment on above: Performed By: #### L ACWB #### [facility] [address] [place] [phone] [employer] Commander Deputy Sheriff: Brandan Ugalde MD Bilirubin [Mass/Vol] mg/dL Low 0.3-1.2 [facility] Comment on above: Performed By: #### L ACWB #### [facility] [address] [place] [address] Civil [employer] Commander Deputy Sheriff: Brandan Ugalde MD (cont.) Normal [facility] Comment on above: Result Comment: Aver age GFR for 40-49 years old: 99 mL/min/1.73sq m Chronic Kidney Disease: <60 mL/min/1.73sq m Kidney failure: <15 mL/min/1.73sq m eGFR calculated using average adult body mass. Additional eGFR calculator available at: http://www.[employer]bloom/multiple_crcl_2011.htm Performed By: #### L ACWB #### [address] [address] Civil Division Commander Deputy Sheriff: Brandan Ugalde MD Albumin [Mass/Vol] 1.9 g/dL Low 3.5-5.2 [facility] Comment on above: Performed By: #### L ACWB #### [address] [address] [employer] Commander Deputy Sheriff: Brandan Ugalde MD Albumin/Glob Ratio 0.7 Low 1.0-2.5 [facility] Comment on above: Performed By: #### L ACWB #### [address] [address] [employer] Commander Deputy Sheriff: Brandan Ugalde MD Alkaline Phos 69 U/L Normal 35-104 [facility] Comment on above: Performed By: #### L ACWB #### [address] [address] [employer] Commander Deputy Sheriff: Brandan Ugalde MD ALT [Catalytic activity/Vol] 11 U/L Normal 5-33 [facility] Comment on above: Performed By: #### L ACWB #### [address] [address] [employer] Commander Deputy Sheriff: Brandan Ugalde MD Anion gap [Moles/Vol] 10 mmol/L Normal 9-17 [facility] Comment on above: Performed By: #### L ACWB #### [address] [address] [employer] Commander Deputy Sheriff: Brandan Ugalde MD Calcium [Mass/Vol] 8.2 mg/dL Low 8.6-10.4 [facility] Comment on above: Performed By: #### L ACWB #### [facility] [address] [place] [address] [employer] Commander Deputy Sheriff: Brandan Ugalde MD Chloride [Moles/Vol] 115 mmol/L High 98-107 [facility] Comment on above: Performed By: #### L ACWB #### [address] [address] [employer] Commander Deputy Sheriff: Brandan Ugalde MD CO2 [Moles/Vol] 13 mmol/L Low 20-31 [facility] Comment on above: Performed By: #### L ACWB #### [address] [address] [employer] Commander Deputy Sheriff: Brandan Ugalde MD Creatinine [Mass/Vol] 1.77 mg/dL High 0.50-0.90 [facility] Comment on above: Performed By: #### L ACWB #### [address] [address] [employer] Commander Deputy Sheriff: Brandan Ugalde MD GFR, Amer 38 mL/min Low >60 [facility] Comment on above: Performed By: #### L ACWB #### [facility] [address] [place] [address] [employer] Commander Deputy Sheriff: Brandan Ugalde MD GFR,non Amer 31 mL/min Low >60 [facility] Comment on above: Performed By: #### L ACWB #### [facility] [address] [place] [address] [employer] Commander Deputy Sheriff: Brandan Ugalde MD Glucose [Mass/Vol] 184 mg/dL High 70-99 [facility] Comment on above: Performed By: #### L ACWB #### [address] [address] [employer] Commander Deputy Sheriff: Brandan Ugalde MD Potassium [Moles/Vol] 3.5 mmol/L Low 3.7-5.3 [facility] Comment on above: Performed By: #### L ACWB #### [id number] [place] [address] [employer] Commander Deputy Sheriff: Brandan Ugalde MD Protein [Mass/Vol] 4.6 g/dL Low 6.4-8.3 [facility] Comment on above: Performed By: #### L ACWB #### [address] [address] [employer] Commander Deputy Sheriff: Brandan Ugalde MD Sodium [Moles/Vol] 138 mmol/L Normal 135-144 [facility] Comment on above: Performed By: #### L ACWB #### [address] [address] [employer] Commander Deputy Sheriff: Brandan Ugalde MD Urea nitrogen [Mass/Vol] 31 mg/dL High -20 [facility] Comment on above: Performed By: #### L ACWB #### [address] [address] [employer] Commander Deputy Sheriff: Brandan Ugalde MD BUN/CRE Ratio NOT REPORTED Normal [facility] Comment on above: Performed By: #### L ACWB #### [address] [address] [employer] Commander Deputy Sheriff: Brandan Ugalde MD Staging: NOT REPORTED Normal [facility] Comment on above: Performed By: #### L ACWB #### [facility] [address] [place] [address] [employer] Commander Deputy Sheriff: Brandan Ugalde MD Comprehensive Metabolic Pane l w/ Reflex to MGon 10-01-2021 Albumin [Mass/Vol] 1.9 g/dL Low 3.5 - 5.2 g/dL [facility] Albumin/Globulin [Mass ratio] 0.7 {ratio} Low [facility] ALP (Bld) [Catalytic activity/Vol] 69 U/L 35 - 104 U/L [facility] ALT [Catalytic activity/Vol] 11 U/L 5 - 33 U/L [facility] Anion gap [Moles/Vol] 10 mmol/L 9 - 17 mmol/L [facility] AST [Catalytic activity/Vol] 12 U/L <32 [facility] Bilirubin [Mass/Vol] mg/dL Low 0.3 - 1.2 mg/dL [facility] Calcium [Mass/Vol] 8.2 mg/dL Low 8.6 - 10.4 mg/dL [facility] Chloride [Moles/Vol] 115 mmol/L High 98 - 107 mmol/L [facility] CO2 [Moles/Vol] 13 mmol/L Low 20 - 31 mmol/L [facility] Creatinine [Mass/Vol] 1.77 mg/dL High 0.50 - 0.90 mg/dL [facility] Free PSA/Total PSA [Mass fraction] 4.6 g/dL Low 6.4 - 8.3 g/dL [facility] GFR 38 mL/min Low >60 [facility] GFR Non- 31 mL/min Low >60 [facility] GFR/1.73 sq M.predicted MDRD (S/P/Bld) [Vol rate/Area] [facility] Comment on above: Average GFR for 40-4 9 years old: 99 mL/min/1.73sq m Chronic Kidney Disease: <60 mL/min/1.73sq m Kidney failure: <15 mL/min/1.73sq m eGFR calculated using average adult body mass. Additional eGFR calculator available at: http://www.PixelSteam.Mindbloom/multiple_crcl_2012.htm GFR/1.73 sq M.predicted MDRD (S/P/Bld) [Vol rate/Area] NOT REPORTED [facility] Glucose [Mass/Vol] 184 mg/dL High 70 - 99 mg/dL [facility] Interpretation and review of laboratory results Abnormal [facility] Potassium [Moles/Vol] 3.5 mmol/L Low 3.7 - 5.3 mmol/L [facility] Sodium [Moles/Vol] 138 mmol/L 135 - 144 mmol/L [facility] Urea nitrogen (BldV) [Mass/Vol] 31 mg/dL High 6 - 20 mg/dL [facility] Urea nitrogen/Creatinine (Bld) [Mass ratio] NOT REPORTED [facility] Electrolyte Panelon 10-01-19 Anion gap [Moles/Vol] 8 mmol/L Low 9 - 17 mmol/L [facility] Chloride [Moles/Vol] 108 mmol/L High 98 - 107 mmol/L [facility] CO2 [Moles/Vol] 19 mmol/L Low 20 - 31 mmol/L [facility] Interpretation and review of laboratory results Abnormal [facility] Potassium [Moles/Vol] 3.4 mmol/L Low 3.7 - 5.3 mmol/L [facility] Sodium [Moles/Vol] 135 mmol/L 135 - 144 mmol/L [facility] Anion gap [Moles/Vol] 9 mmol/L 9 - 17 mmol/L [facility] Chloride [Moles/Vol] 112 mmol/L High 98 - 107 mmol/L [facility] CO2 [Moles/Vol] 16 mmol/L Low 20 - 31 mmol/L [facility] Potassium [Moles/Vol] 3.2 mmol/L Low 3.7 - 5.3 mmol/L [facility] Sodium [Moles/Vol] 137 mmol/L 135 - 144 mmol/L [facility] Electrolyteson 10-01-2021 Anion gap [Moles/Vol] 8 mmol/L Low 9-17 [facility] Comment on above: Performed By: #### U PRATIBHA Phipps #### [facility] [address] [place] [address] [phone] [employer] Commander Deputy Sheriff: Brandan Ugalde MD Chloride [Moles/Vol] 108 mmol/L High 98-107 [facility] Comment on above: Performed By: #### U AFRANKO #### [facility] [address] [place], [place] [phone] Civil [employer] Commander Deputy Sheriff: Brandan Ugalde MD CO2 [Moles/Vol] 19 mmol/L Low 20-31 [facility] Comment on above: Performed By: #### U A UMICAO #### [facility] [address] [place], [place] [phone] Civil Division Commander Deputy Sheriff: Brandan Ugalde MD Potassium [Moles/Vol] 3.4 mmol/L Low 3.7-5.3 [facility] Comment on above: Performed By: #### PRATIBHA Claudio #### [address] [address] Civil [employer] Commander Deputy Sheriff: Brandan Ugalde MD Sodium [Moles/Vol] 135 mmol/L Normal 135-144 [facility] Comment on above: Performed By: #### PRATIBHA Claudio #### [address] [address] [employer] Commander Deputy Sheriff: Brandan Ugalde MD Anion gap [Moles/Vol] 9 mmol/L Normal 9-17 [facility] Comment on above: Performed By: #### L ACWB #### [address] [address] [employer] Commander Deputy Sheriff: Brandan Ugalde MD Chloride [Moles/Vol] 112 mmol/L High 98-107 [facility] Comment on above: Performed By: #### L ACWB #### [address] [address] Civil [employer] Commander Deputy Sheriff: Brandan Ugalde MD CO2 [Moles/Vol] 16 mmol/L Low 20-31 [facility] Comment on above: Performed By: #### L ACWB #### [address] [address] Civil Division Commander Deputy Sheriff: Brandan Ugalde MD Potassium [Moles/Vol] 3.2 mmol/L Low 3.7-5.3 [facility] Comment on above: Performed By: #### L ACWB #### [address] [address] Civil [employer] Commander Deputy Sheriff: Brandan Ugalde MD Sodium [Moles/Vol] 137 mmol/L Normal 135-144 [facility] Comment on above: Performed By: #### L ACWB #### [address] [place] [address] [employer] Commander Deputy Sheriff: Brandan Ugalde MD Fibrinogenon 10-01-2021 Fibrinogen 389 mg/dL Normal 140-420 [facility] Comment on above: Performed By: #### L ACWB #### [address] [address] [place] [address] [employer] Commander Deputy Sheriff: Brandan Ugalde MD Fibrinogen 389 mg/dL 140 - 420 mg/dL [facility] Immature Platelet Fractionon 10-01-2021 Platelet, Fluorescence Platelet clumps present, count appears decreased. [facility] Lactate Dehydrogenaseon 09-05 LDH [Catalytic activity/Vol] 233 U/L High 135-214 [facility] Comment on above: Performed By: #### P TT, FIB, PT, LYTE, DBILI, TBIL, RETCT, CBC, LD, HAPT, PATH ####[address] [phone] Lab Director: Brandan Ugalde MD Interpretation and review of laboratory results Abnormal [facility] LD 233 U/L High 135 - 214 [facility] Magnesiumon 10-01-2021 Magnesium [Mass/Vol] 2.0 mg/dL Normal 1.6-2.6 [facility] Comment on above: Performed By: #### L ACWB #### [facility] [place] [address] Civil Division Commander Deputy Sheriff: Brandan Ugalde MD Magnesium [Mass/Vol] 2.0 mg/dL 1.6 - 2.6 mg/dL [facility] No Panel Informationon 10-01 [facility] Interpretation and review of laboratory results Abnormal [facility] PLT, Immature Fract.on 10-01 Platelet, Fluoresc. Platelet clumps present, count appears decreased. Normal 138-453 [facility] Comment on above: Performed By: #### L ACWB #### [facility] [place], [place] [phone] Civil [employer] Commander Deputy Sheriff: Brandan Ugalde MD PLT, Immature Fract. NOT REPORTED Normal 1.1-10.3 [facility] Comment on above: Performed By: #### L ACWB #### [address] [place], [place] [phone] [employer] Commander Deputy Sheriff: Brandan Ugalde MD POC Glucose Fingerstickon Glucose [Mass/Vol] 177 mg/dL High 65 - 105 mg/dL [facility] Interpretation and review of laboratory results Abnormal [facility] Glucose [Mass/Vol] 188 mg/dL High 65 - 105 mg/dL [facility] Interpretation and review of laboratory results Abnormal [facility] Glucose [Mass/Vol] 225 mg/dL High 65 - 105 mg/dL [facility] Interpretation and review of laboratory results Abnormal [facility] Glucose [Mass/Vol] 197 mg/dL High 65 - 105 mg/dL [facility] Interpretation and review of laboratory results Abnormal [facility] Glucose [Mass/Vol] 137 mg/dL High 65 - 105 mg/dL [facility] Interpretation and review of laboratory results Abnormal [facility] POTASSIUM, URINE, RANDOMon 0 10-01-2021 Potassium, Ur 7 mmol/L [facility] Comment on above: No normal range esta blished. PROTIME-INRon 10-01-2021 INR Coag (Bld) [Relative time] 1.3 {INR} [facility] Comment on above: Therapeutic Range: Moderate Anticoagulant Intensity: INR = 2.0-3.0 High Anticoagulant Intensity: INR = 2.5-3.5 Interpretation and review of laboratory results Abnormal [facility] PT Coag (PPP) [Time] 13.8 s High [facility] PTon 10-01-2021 INR Coag (PPP) [Relative time] 1.1 {INR} Normal [facility] Comment on above: Result Comment: Therapeutic Range: Moderate Anticoagulant Intensity: INR = 2.0-3.0 High Anticoagulant Intensity: INR = 2.5-3.5 Performed By: #### L ACWB #### [facility] [address] [address] Civil [employer] Commander Deputy Sheriff: Brandan Ugalde MD PT Coag (PPP) [Time] 11.4 s Normal 9.1-12.3 [facility] Comment on above: Performed By: #### L ACWB #### [facility] [address] [place] [address] [employer] Commander Deputy Sheriff: Brandan Ugalde MD INR Coag (PPP) [Relative time] 1.3 {INR} Normal [facility] Comment on above: Result Comment: Therapeutic Range: Moderate Anticoagulant Intensity: INR = 2.0-3.0 High Anticoagulant Intensity: INR = 2.5-3.5 Performed By: #### L ACWB #### [facility] [address] [place] [address] [employer] Commander Deputy Sheriff: Brandan Ugalde MD PT Coag (PPP) [Time] 13.8 s High 9.1-12.3 [facility] Comment on above: Performed By: #### L ACWB #### [address] [address] [employer] Commander Deputy Sheriff: Brandan Ugalde MD Phosphoruson 10-01-2021 Interpretation and review of laboratory results Abnormal [facility] Phosphate [Mass/Vol] 1.8 mg/dL Low 2.6 - 4.5 mg/dL [facility] Phosphorus, Inorg.on 022 Phosphorus, Inorg. 1.8 mg/dL Low 2.6-4.5 [facility] Comment on above: Performed By: #### L ACWB #### [address] [address] [employer] Commander Deputy Sheriff: Brandan Ugalde MD Potassium,Random Uron 2021 Potassium [Moles/Vol] 7.0 mmol/L Normal [facility] Comment on above: Result Comment: No n ormal range established. Performed By: #### U PRATIBHA Phipps #### [facility] [address] [place] [address] Civil Division Commander Deputy Sheriff: Brandan Ugalde MD Protime-INRon 10-01-2021 INR Coag (Bld) [Relative time] 1.1 {INR} [facility] Comment on above: Therapeutic Range: Moderate Anticoagulant Intensity: INR = 2.0-3.0 High Anticoagulant Intensity: INR = 2.5-3.5 PT Coag (PPP) [Time] 11.4 s [facility] Resp Viral Panelon 2 Adenovirus Not detected Normal [facility] Comment on above: Performed By: #### R HEAD SAMPLER ####[address] [address] Lab Director: MD Shoaib Wooten.parapertussis Not detected Normal [facility] Comment on above: Performed By: #### R HEAD SAMPLER ####[address] [address] Lab Director: Brandan Ugalde MD Bordetella pertussis Not detected Normal [facility] Comment on above: Performed By: #### R HEAD SAMPLER ####[address] [address] Lab Director: Brandan Ugalde MD Chlamyd.pneumoniae Not detected Normal [facility] Comment on above: Performed By: #### R HEAD SAMPLER ####[address] [address] Lab Director: Brandan Ugalde MD Coronavirus 229E Not detected Normal [facility] Comment on above: Performed By: #### R HEAD SAMPLER ####[address] [address] Lab Director: Brandan Ugalde MD Coronavirus HKU1 Not detected Normal [facility] Comment on above: Performed By: #### R HEAD SAMPLER ####[address], [place] [phone])[phone] Director: Brandan Ugalde MD Coronavirus NL63 Not detected Normal [facility] Comment on above: Performed By: #### R HEAD SAMPLER ####[address] [phone] Director: Brandan Ugalde MD Coronavirus OC43 Not detected Normal [facility] Comment on above: Performed By: #### R HEAD SAMPLER ####[address] [phone] Director: Brandan Ugalde MD Human Metapneumo Not detected Normal [facility] Comment on above: Performed By: #### R HEAD SAMPLER ####[address] [phone] Director: Brandan Ugalde MD Influenza A Not detected Normal [facility] Comment on above: Performed By: #### R HEAD SAMPLER ####[address] [phone] Director: Brandan Ugalde MD Influenza B Not detected [facility] Comment on above: Performed By: #### R HEAD SAMPLER ####[address] [phone] Director: Brandan Ugalde MD Mycoplas.pneumoniae Not detected Normal [facility] Comment on above: Result Comment: Perf ormed by multiplexed nucleic acid assay. Performed By: #### R HEAD SAMPLER ####[address] [phone] Director: Brandan Ugalde MD Parainfluenza 1 Not detected Normal [facility] Comment on above: Performed By: #### R HEAD SAMPLER ####[address] [phone] Director: Brandan Ugalde MD Parainfluenza 2 Not detected Normal [facility] Comment on above: Performed By: #### R HEAD SAMPLER ####[address] [address] Lab Director: Brandan Ugalde MD Parainfluenza 3 Not detected Normal [facility] Comment on above: Performed By: #### R HEAD SAMPLER ####[address] [address] Lab Director: Brandan Ugalde MD Parainfluenza 4 Not detected Normal [facility] Comment on above: Performed By: #### R HEAD SAMPLER ####[address] [address] Lab Director: Brandan Ugalde MD Resp Syncytial Virus Not detected Normal [facility] Comment on above: Performed By: #### R HEAD SAMPLER ####[address] [address] Lab Director: Brandan Ugalde MD Rhino/Enterovirus Not detected Normal [facility] Comment on above: Performed By: #### R HEAD SAMPLER ####[address] [address] Lab Director: Brandan Ugalde MD SARS-CoV-2 (COVID-19) RNA ARUN+probe Ql (Unsp spec) Not detected Normal [facility] Comment on above: Performed By: #### R HEAD SAMPLER ####[address] [address] Lab Director: Brandan Ugalde MD Influenza A H1 NOT REPORTED Normal [facility] Comment on above: Performed By: #### R HEAD SAMPLER ####[address] [address] Lab Director: Brandan Ugalde MD Influenza A H1-2009 NOT REPORTED Normal [facility] Comment on above: Performed By: #### R HEAD SAMPLER ####[facility] [address] [place], [place] [id number] Lab Director: Brandan Ugalde MD Influenza A H3 NOT REPORTED Normal [facility] Comment on above: Performed By: #### R HEAD SAMPLER ####[facility] [address] [place], [place] [phone] lab Director: Brandan Ugalde MD Source: .NASOPHARYNGEAL SWAB Normal [facility] Comment on above: Performed By: #### R HEAD SAMPLER ####[facility] [place], [place] [phone] lab Director: Brandan Ugalde MD Respiratory Panel, Molecular , with COVID-19 (Restricted: peds pts or suitable admitted adults)on 10-01-2021 Adenovirus PCR Not detected Not Detected [facility] B Pertussis by PCR Not detected Not Detected [facility] Bordetella Parapertussis Not detected Not Detected [facility] Chlamydia pneumoniae By PCR Not detected Not Detected [facility] Coronavirus 229E PCR Not detected Not Detected [facility] Coronavirus HKU1 PCR Not detected Not Detected [facility] Coronavirus NL63 PCR Not detected Not Detected [facility] Coronavirus OC43 PCR Not detected Not Detected [facility] Human Metapneumovirus PCR Not detected Not Detected [facility] Influenza A by PCR Not detected Not Detected [facility] Influenza A H1 (2009) PCR NOT REPORTED Not Detected [facility] Influenza A H1 PCR NOT REPORTED Not Detected [facility] Influenza A H3 PCR NOT REPORTED Not Detected [facility] Influenza B by PCR Not detected Not Detected [facility] Mycoplasma pneumo by PCR Not detected Not Detected [facility] Comment on above: Performed by multip exed nucleic acid assay. Parainfluenza 1 PCR Not detected Not Detected [facility] Parainfluenza 2 PCR Not detected Not Detected [facility] Parainfluenza 3 PCR Not detected Not Detected [facility] Parainfluenza 4 PCR Not detected Not Detected [facility] Resp Syncytial Virus PCR Not detected Not Detected [facility] Rhino/Enterovirus PCR Not detected Not Detected [facility] SARS-CoV-2 (COVID-19) RNA ARUN+probe Ql (Unsp spec) Not detected Not Detected [facility] Specimen Description .NASOPHARYNGEAL SWAB [facility] Retic Counton 10-01-2021 Absolute Retic 0.070 M/uL Normal 0.030-0.080 [facility] Comment on above: Performed By: #### P TT, FIB, PT, LYTE, DBILI, TBIL, RETCT, CBC, LD, HAPT, PATH ####[address] [phone])[phone] Director: Brandan Ugalde MD IRF 9.500 % Normal 2.7-18.3 [facility] Comment on above: Performed By: #### P TT, FIB, PT, LYTE, DBILI, TBIL, RETCT, CBC, LD, HAPT, PATH ####[address] [address] Lab Director: Brandan Ugalde MD Retic Count 1.8 % Normal 0.5-1.9 [facility] Comment on above: Performed By: #### P TT, FIB, PT, LYTE, DBILI, TBIL, RETCT, CBC, LD, HAPT, PATH ####[address] [address] Lab Director: Brandan Ugalde MD Retic Hemoglobin 33.5 pg Normal 28.2-35.7 [facility] Comment on above: Performed By: #### P TT, FIB, PT, LYTE, DBILI, TBIL, RETCT, CBC, LD, HAPT, PATH ####[address] [address] Lab Director: Brandan Ugalde MD Reticulocyteson 10-01-2021 Absolute Retic # 0.070 [facility] Immature Retic Fract 9.5 % 2.7 - 18.3 % [facility] Retic % 1.8 % 0.5 - 1.9 % [facility] Retic Hemoglobin 33.5 pg 28.2 - 35.7 pg [facility] SODIUM, URINE, RANDOMon 09-05 Sodium (U) [Moles/Vol] 27 mmol/L [facility] Comment on above: No normal range esta blished. Sodium, Random Uron 10-01-19 Sodium (U) [Moles/Vol] 27 mmol/L Normal [facility] Comment on above: Result Comment: No n ormal range established. Performed By: #### U A, UMICAO #### [address] [place] [address] [phone] [employer] Commander Deputy Sheriff: Brandan Ugalde MD Stool PCR Batteryon 10-01-19 Specimen Description .FECES Normal [facility] Comment on above: Performed By: #### U A, UMICAO #### [facility] [address] [place] [address] [phone] Civil [employer] Commander Deputy Sheriff: Brandan Ugalde MD Surgical Pathologyon 022 Surgical Pathology (NOTE) [id number] [facility] [email or web address] [facility] [facility] ANATOMIC PATHOLOGY [address] [place] [phone] SURGICAL PATHOLOGY CONSULTATION Patient Name: CARISSA SANTOS MR#: [id number] Specimen #[id number] Procedures/Addenda PERIPHERAL BLOOD REPORT Date Ordered: 10/04/2021 Status: Signed Out Date Complete: 10/04/2021 By: Horacio Vila M.D. Date Reported: 10/04/2021 INTERPRETATION Peripheral blood: - Normocytic anemia (hemoglobin 10.9 g/dL), hypoproliferative. Recommend correlation with ferritin and other iron studies. RESULTS-COMMENTS PERIPHERAL BLOOD STUDY CBC: Please see the electronic health record for CBC parameters ([id number], 10/01/21, 08:59). PLATELETS: Platelets show normal morphology. The platelet count is 141 k/microliter. LEUKOCYTES: White blood cells show normal morphology. There are no blasts. ERYTHROCYTES: Red blood cells show normal morphology. The absolute reticulocyte count is not increased. Note: The electronic health record is reviewed. Horacio Vila M.D. Source: A: PERIPHERAL BLOOD Normal [facility] Comment on above: Performed By: #### U A, UMICAO #### [facility] [address] [place], [place] [phone] Civil Division Commander Deputy Sheriff: Brandan Ugalde MD URINALYSIS WITH MICROSCOPICo n 10-01-2021 - [facility] Amorphous, UA NOT REPORTED None [facility] Bacteria, UA NOT REPORTED None [facility] Bilirubin Urine Negative NEGATIVE [facility] Casts UA 0 TO 2 HYALINE Reference range defined for non-centrifuged specimen. [facility] Color, UA Yellow Yellow [facility] Crystals, UA NOT REPORTED None /HPF [facility] Epithelial Cells UA 0 TO 2 [facility] Glucose, Ur TRACE Abnormal NEGATIVE [facility] Interpretation and review of laboratory results Abnormal [facility] Ketones Ql (U) Negative NEGATIVE [facility] Leukocyte esterase Test strip Ql (U) Negative NEGATIVE [facility] Mucus, UA NOT REPORTED None [facility] Nitrite, Urine Negative NEGATIVE [facility] Other Observations UA NOT REPORTED NOT REQ. [facility] pH, UA 5.5 [facility] Protein, UA TRACE Abnormal NEGATIVE [facility] RBC, UA 0 TO 2 [facility] Renal Epithelial, UA NOT REPORTED 0 /HPF [facility] Specific Joice, UA 1.006 [facility] SDI Trichomonas, UA NOT REPORTED None [facility] ealt Turbidity UA Clear Clear [facility] SDI Urine Hgb SMALL Abnormal NEGATIVE [facility] SDI Urobilinogen, Urine Normal Normal [facility] WBC, UA 2 TO 5 [facility] Comment on above: CORRECTED ON 10/01 A T 1024: PREVIOUSLY REPORTED 5 TO 10 Yeast, UA MANY Abnormal None [facility] Urinalysis w/ Microon 2021 Urine RBC's 0 TO 2 Normal 0-2 [facility] Comment on above: Performed By: #### U AMIC ####[facility] [address] [place], [place] [phone] Lab Director: Brandan Ugalde MD Urine WBC's 2 TO 5 Normal 0-5 [facility] Comment on above: Result Comment: MRET ECTED ON 10/01 AT 1024: PREVIOUSLY REPORTED 5 TO 10 Performed By: #### U AMIC ####[facility] [place] [address] Lab Director: Brandan Ugalde MD Yeast MANY Abnormal NONE [facility] Comment on above: Performed By: #### U AMIC ####[facility] [place] [address] Lab Director: Brandan Ugalde MD ----- Normal [facility] Comment on above: Performed By: #### U AMIC ####[address] [phone] Director: Brandan Ugalde MD Bilirubin, SemiQt,Ur Negative Normal NEG [facility] Comment on above: Performed By: #### U AMIC ####[address] [address] Lab Director: Brandan Ugalde MD Blood, Urine SMALL Abnormal NEG [facility] Comment on above: Performed By: #### U AMIC ####[address] [phone] Director: Brandan Ugalde MD Casts 0 TO 2 HYALINE Normal 0-8 [facility] Comment on above: Result Comment: Refe rence range defined for non-centrifuged specimen. Performed By: #### U AMIC ####[address] [address] Lab Director: Brandan Ugalde MD Clarity (U) Clear Normal CLEAR [facility] Comment on above: Performed By: #### U AMIC ####[facility] [place] [address] Lab Director: Brandan Ugalde MD Color (U) Yellow Normal YEL [facility] Comment on above: Performed By: #### U AMIC ####[facility] [place] [address] Lab Director: Brandan Ugalde MD Epithelial cells LM Ql (Urine sed) 0 TO 2 Normal 0-5 [facility] Comment on above: Performed By: #### U AMIC ####[address] [place], [place] [phone] Director: Brandan Ugalde MD Glucose Ql (U) TRACE Abnormal NEG [facility] Comment on above: Performed By: #### U AMIC ####[facility] [address] [place] [address] [phone] Director: Brandan Ugalde MD Ketones Ql (U) Negative Normal NEG [facility] Comment on above: Performed By: #### U AMIC ####[address] [phone] Director: Brandan Ugalde MD Leukocyte esterase Test strip Ql (U) Negative Normal NEG [facility] Comment on above: Performed By: #### U AMIC ####[address] [address] Lab Director: Brandan Ugalde MD Nitrite,Ur Negative Normal NEG [facility] Comment on above: Performed By: #### U AMIC ####[facility] [place], [place] [phone] Director: Brandan Ugalde MD PH,Ur 5.5 Normal 5.0-8.0 [facility] Comment on above: Performed By: #### U AMIC ####[facility] [address] [place], [place] [phone] Director: Brandan Ugalde MD Protein Ql (U) TRACE Abnormal NEG [facility] Comment on above: Performed By: #### U AMIC ####[facility] [address] [place] [address] Lab Director: Brandan Ugalde MD Spec. Joice,Ur 1.006 Normal 1.005-1.030 [facility] Comment on above: Performed By: #### U AMIC ####[facility] [address] [place], [place] [phone] Lab Director: Brandan Ugalde MD Urobilinogen,Ur Normal Normal NORM [facility] Comment on above: Performed By: #### U AMIC ####[facility] [address] [place] [address] lab Director: Brandan Ugalde MD BLOOD GAS, VENOUSon 09-30-19 22 Bibi Test NOT REPORTED [facility] SDI Carboxyhemoglobin 1.5 % 0 - 5 % [facility] ealth Comment on above: Reference Range: Non-Smokers 0-2% Average Smoker 2-4% Heavy Smoker <10% FIO2 INFORMATION NOT PROVIDED [facility] HCO3 (Bld) [Moles/Vol] 17.6 mmol/L Low 24 - 30 mmol/L [facility] SDI Interpretation and review of laboratory results Abnormal [facility] Methemoglobin NOT REPORTED 0.0 - 1.5 % [employer] alth Mode NOT REPORTED [facility] Negative Base Excess, Earnest 8.6 mmol/L High 0.0 - 2.0 mmol/L [facility] NOTIFICATION NOT REPORTED [facility] th NOTIFICATION TIME NOT REPORTED [facility] O2 Device/Flow/% NOT REPORTED [facility] Oxygen saturation in Blood 55.1 % Low 60.0 - 85.0 % [facility] Oxyhemoglobin NOT REPORTED 95.0 - 98.0 % [facility] [employer] pCO2, Earnest 41.1 [facility] SDI pCO2, Eranest, Temp Adj NOT REPORTED [facility] SDI Peep/Cpap NOT REPORTED [facility] pH, Earnest 7.255 Low [facility] [employer] [facility] pH, Earnest, Temp Adj NOT REPORTED [facility] pO2, Earnest 26.8 Low [facility]I pO2, Earnest, Temp Adj NOT REPORTED [facility] Positive Base Excess, Earnest NOT REPORTED 0.0 - 2.0 mmol/L [facility] PSV NOT REPORTED [facility] [employer] [employer] [facility] Pt Temp 37.0 [facility] SDI Pt. Position NOT REPORTED [facility] th Respiratory Rate NOT REPORTED [facility] Sample Site [facility]ED [facility] Set Rate NOT REPORTED [facility] Text for Respiratory NOT REPORTED [facility] Total Hb NOT REPORTED 12.0 - 16.0 g/dl [facility] Total Rate NOT REPORTED [facility] [place] NOT REPORTED [facility] Basic Metab w/rfx MGon 09-30 Anion gap [Moles/Vol] 17 mmol/L Normal 9-17 [facility] Comment on above: Performed By: #### V BG #### [facility] [address] [place] [phone] [employer] Deputy Sheriff: Brandan Ugalde MD Chloride [Moles/Vol] 119 mmol/L High 98-107 [facility] Comment on above: Performed By: #### V BG #### [address] [address] [place] [address] [employer] Deputy Sheriff: Brandan Ugalde MD CO2 [Moles/Vol] 11 mmol/L Low 20-31 [facility] Comment on above: Performed By: #### V BG #### [facility] [address] [place] [address] [employer] Commander Deputy Sheriff: Brandan Ugalde MD Potassium [Moles/Vol] 4.2 mmol/L Normal 3.7-5.3 [facility] Comment on above: Result Comment: SPEC IMEN SLIGHTLY HEMOLYZED, RESULTS MAY BE ADVERSELY AFFECTED. Performed By: #### V BG #### [facility] [employer] [address] [place] [address] [employer] Deputy Sheriff: Brandan Ugalde MD Sodium [Moles/Vol] 147 mmol/L High 135-144 [facility] Comment on above: Result Comment: TEST CONFIRMED Performed By: #### V BG #### [facility] [address] [place] [address] [employer] Commander Deputy Sheriff: Brandan Ugalde MD (cont.) Normal [facility] Comment on above: Result Comment: Aver age GFR for 40-49 years old: 99 mL/min/1.73sq m Chronic Kidney Disease: <60 mL/min/1.73sq m Kidney failure: <15 mL/min/1.73sq m eGFR calculated using average adult body mass. Additional eGFR calculator available at: http://www.[employer].com/multiple_crcl_2012.htm Performed By: #### V BG #### [facility] [address] [place] [address] [employer] Deputy Sheriff: Brandan Ugalde MD Calcium [Mass/Vol] 8.6 mg/dL Normal 8.6-10.4 [facility] Comment on above: Performed By: #### V BG #### [address] [address] [employer] Commander Deputy Sheriff: Brandan Ugalde MD Creatinine [Mass/Vol] 2.06 mg/dL High 0.50-0.90 [facility] Comment on above: Performed By: #### V BG #### [address] [address] [employer] Commander Deputy Sheriff: Brandan Ugalde MD GFR, Amer 32 mL/min Low >60 [facility] Comment on above: Performed By: #### V BG #### [facility] [address] [place] [address] [employer] Commander Deputy Sheriff: Brandan Ugalde MD GFR,non Amer 26 mL/min Low >60 [facility] Comment on above: Performed By: #### V BG #### [facility] [address] [place] [address] [employer] Commander Deputy Sheriff: Brandan Ugalde MD Glucose [Mass/Vol] 160 mg/dL High 70-99 [facility] Comment on above: Performed By: #### V BG #### [facility] [address] [place] [address] [employer] Commander Deputy Sheriff: Brandan Ugalde MD Urea nitrogen [Mass/Vol] 35 mg/dL High 6-20 [facility] Comment on above: Performed By: #### V BG #### [address] [address] [employer] Commander Deputy Sheriff: Brandan Ugalde MD BUN/CRE Ratio NOT REPORTED Normal - [facility] Comment on above: Performed By: #### V BG #### [facility] [address] [place], [place] [phone] Civil [employer] Commander Deputy Sheriff: Brandan Ugalde MD Staging: NOT REPORTED Normal [facility] Comment on above: Performed By: #### V BG #### [facility] [address] [place], [place] [phone] [employer] Commander Deputy Sheriff: Brandan Ugalde MD Basic Metabolic Panelon 09-05 Anion gap [Moles/Vol] 13 mmol/L 9 - 17 mmol/L [employer] Calcium [Mass/Vol] 8.9 mg/dL 8.6 - 10.4 mg/dL [employer] Chloride [Moles/Vol] 119 mmol/L High 98 - 107 mmol/L [employer] CO2 [Moles/Vol] 13 mmol/L Low 20 - 31 mmol/L [facility] Creatinine [Mass/Vol] 2.05 mg/dL High 0.50 - 0.90 mg/dL [employer] GFR 32 mL/min Low >60 [employer] GFR Non- 27 mL/min Low >60 [employer] GFR/1.73 sq M.predicted MDRD (S/P/Bld) [Vol rate/Area] [facility] SDI Comment on above: Average GFR for 40-4 9 years old: 99 mL/min/1.73sq m Chronic Kidney Disease: <60 mL/min/1.73sq m Kidney failure: <15 mL/min/1.73sq m eGFR calculated using average adult body mass. Additional eGFR calculator available at: http://www.[employer].com/multiple_crcl_2012.htm GFR/1.73 sq M.predicted MDRD (S/P/Bld) [Vol rate/Area] NOT REPORTED [facility]I Glucose [Mass/Vol] 162 mg/dL High 70 - 99 mg/dL [facility] SDI Interpretation and review of laboratory results Abnormal [employer] Potassium [Moles/Vol] 3.4 mmol/L Low 3.7 - 5.3 mmol/L [facility] Sodium [Moles/Vol] 145 mmol/L High 135 - 144 mmol/L [employer] Urea nitrogen (BldV) [Mass/Vol] 35 mg/dL High 6 - 20 mg/dL [employer] Urea nitrogen/Creatinine (Bld) [Mass ratio] NOT REPORTED [facility] Basic Metabolic Panel w/ Ref maria de jesus to [facility] 09-30-2021 Anion gap [Moles/Vol] 17 mmol/L 9 - 17 mmol/L [employer] Calcium [Mass/Vol] 8.6 mg/dL 8.6 - 10.4 mg/dL [facility] Chloride [Moles/Vol] 119 mmol/L High 98 - 107 mmol/L [employer] CO2 [Moles/Vol] 11 mmol/L Low 20 - 31 mmol/L [facility]I Creatinine [Mass/Vol] 2.06 mg/dL High 0.50 - 0.90 mg/dL [employer] GFR 32 mL/min Low >60 [employer] GFR Non- 26 mL/min Low >60 [employer] GFR/1.73 sq M.predicted MDRD (S/P/Bld) [Vol rate/Area] [facility] Comment on above: Average GFR for 40-4 9 years old: 99 mL/min/1.73sq m Chronic Kidney Disease: <60 mL/min/1.73sq m Kidney failure: <15 mL/min/1.73sq m eGFR calculated using average adult body mass. Additional eGFR calculator available at: http://www.[employer]/multiple_crcl_2012.htm GFR/1.73 sq M.predicted MDRD (S/P/Bld) [Vol rate/Area] NOT REPORTED [facility]I Glucose [Mass/Vol] 160 mg/dL High 70 - 99 mg/dL [facility] SDI Interpretation and review of laboratory results Abnormal [facility] Potassium [Moles/Vol] 4.2 mmol/L 3.7 - 5.3 mmol/L [facility] Comment on above: SPECIMEN SLIGHTLY HE MOLYZED, RESULTS MAY BE ADVERSELY AFFECTED. Sodium [Moles/Vol] 147 mmol/L High 135 - 144 mmol/L [facility] Comment on above: TEST CONFIRMED Urea nitrogen (BldV) [Mass/Vol] 35 mg/dL High 6 - 20 mg/dL [facility] SDI Urea nitrogen/Creatinine (Bld) [Mass ratio] NOT REPORTED [facility] Basic Metabolic Profon 09-30 (cont.) Normal [facility] Comment on above: Result Comment: Aver age GFR for 40-49 years old: 99 mL/min/1.73sq m Chronic Kidney Disease: <60 mL/min/1.73sq m Kidney failure: <15 mL/min/1.73sq m eGFR calculated using average adult body mass. Additional eGFR calculator available at: http://www.[employer]/multiple_crcl_2011.htm Performed By: #### V BG #### [address] [address] [employer] Commander Deputy Sheriff: Brandan Ugalde MD Anion gap [Moles/Vol] 13 mmol/L Normal 9-17 [facility] Comment on above: Performed By: #### V BG #### [address] [address] [employer] Commander Deputy Sheriff: Brandan Ugalde MD Calcium [Mass/Vol] 8.9 mg/dL Normal 8.6-10.4 [facility] Comment on above: Performed By: #### V BG #### [address] [address] [employer] Commander Deputy Sheriff: Brandan Ugalde MD Chloride [Moles/Vol] 119 mmol/L High 98-107 [facility] Comment on above: Performed By: #### V BG #### [facility] [address] [place] [address] [employer] Commander Deputy Sheriff: Brandan Ugalde MD CO2 [Moles/Vol] 13 mmol/L Low 20-31 [facility] Comment on above: Performed By: #### V BG #### [address] [address] [employer] Commander Deputy Sheriff: Brandan Ugalde MD Creatinine [Mass/Vol] 2.05 mg/dL High 0.50-0.90 [facility] Comment on above: Performed By: #### V BG #### [facility] [address] [place] [address] [employer] Commander Deputy Sheriff: Brandan Ugalde MD GFR, Amer 32 mL/min Low >60 [facility] Comment on above: Performed By: #### V BG #### [address] [address] [employer] Commander Deputy Sheriff: Brandan Ugalde MD GFR,non Amer 27 mL/min Low >60 [facility] Comment on above: Performed By: #### V BG #### [facility] [address] [place] [address] [employer] Commander Deputy Sheriff: Brandan Ugalde MD Glucose [Mass/Vol] 162 mg/dL High 70-99 [facility] Comment on above: Performed By: #### V BG #### [address] [address] [employer] Commander Deputy Sheriff: Brandan Ugalde MD Potassium [Moles/Vol] 3.4 mmol/L Low 3.7-5.3 [facility] Comment on above: Performed By: #### V BG #### [address] [address] [employer] Commander Deputy Sheriff: Brandan Ugalde MD Sodium [Moles/Vol] 145 mmol/L High 135-144 [facility] Comment on above: Performed By: #### V BG #### [facility] [address] [place] [address] [employer] Commander Deputy Sheriff: Brandan Ugalde MD Urea nitrogen [Mass/Vol] 35 mg/dL High 6-20 [facility] Comment on above: Performed By: #### V BG #### [facility] [address] [place] [address] [employer] Commander Deputy Sheriff: Brandan Ugalde MD BUN/CRE Ratio NOT REPORTED Normal 9-20 [facility] Comment on above: Performed By: #### V BG #### [facility] [address] [place] [address] Civil Division Commander Deputy Sheriff: Brandan Ugalde MD Staging: NOT REPORTED Normal [facility] Comment on above: Performed By: #### V BG #### [facility] [address] [place], [place] [phone] [employer] Commander Deputy Sheriff: Brandan Ugalde MD CBC Auto Differentialon 09-05 Absolute Eos # 0.03 [facility] th Absolute Immature Granulocyte 0.05 [employer] Absolute Lymph # 1.19 [facility] Absolute Fleming # 0.43 [facility] Basophils (Bld) [#/Vol] 10*3/uL [employer] [facility] [facility] Basophils/100 WBC (Bld) 0 % 0 - 2 % [facility] Differential Type NOT REPORTED [facility] Eosinophils/100 WBC (Bld) 1 % 1 - 4 % [facility] Hematocrit (Bld) [Volume fraction] 30.9 % Low 36.3 - 47.1 % [employer] [facility] [facility] Hemoglobin.gastroint estinal spec 1 Ql (Stl) 10.2 g/dL Low 11.9 - 15.1 g/dL [employer] [facility] Immature granulocytes/100 WBC (Bld) 1 % High 0 [facility] Interpretation and review of laboratory results Abnormal [facility] Lymphocytes/100 WBC (Bld) 28 % 24 - 43 % [facility] MCH (RBC) [Entitic mass] 29.1 pg 25.2 - 33.5 pg [facility] MCHC (RBC) [Mass/Vol] 33.0 g/dL 28.4 - 34.8 g/dL [employer] [facility] [employer] MCV (RBC) [Entitic vol] 88.0 fL 82.6 - 102.9 fL [facility] Monocytes/100 WBC (Bld) 10 % 3 - 12 % [facility] NRBC Automated 0.0 0.0 per 100 WBC [facility] Platelet distribution width (Bld) [Ratio] 14.2 % 11.8 - 14.4 % [facility] Platelet Estimate NOT REPORTED [facility] Platelet mean volume (Bld) [Entitic vol] 8.5 fL 8.1 - 13.5 fL [employer] [facility] [employer] [facility] Platelets (Bld) [#/Vol] 70 10*3/uL Low [facility] RBC (Bld) [#/Vol] 3.51 10*6/uL Low 3.95 - 5.11 m/uL [facility] RBC (Bld) [#/Vol] NOT REPORTED [facility] Segmented neutrophils/100 WBC (Bld) 60 % 36 - 65 % [facility] Segs Absolute 2.60 [facility] [#/Vol] 4.3 10*3/uL [facility] WBC (Bld) [#/Vol] NOT REPORTED [facility] CBC with Diffon 09-30-2021 Abs. Basophil <0.03 Normal 0.00-0.20 [facility] Comment on above: Performed By: #### V BG #### [address] [address] [employer] Commander Deputy Sheriff: Brandan Ugalde MD Abs.Imm.Granulocyte 0.05 k/uL Normal 0.00-0.30 [facility] Comment on above: Performed By: #### V BG #### [facility] [address] [place] [address] [employer] Commander Deputy Sheriff: Brandan Ugalde MD Abs.Neutrophil (Seg) 2.60 k/uL Normal 1.50-8.10 [facility] Comment on above: Performed By: #### V BG #### [facility] [address] [place] [address] [employer] Commander Deputy Sheriff: Brandan Ugalde MD Basophils/100 WBC (Bld) 0 % Normal 0-2 [facility] Comment on above: Performed By: #### V BG #### [facility] [address] [place] [address] [employer] Commander Deputy Sheriff: Brandan Ugalde MD Eosinophils (Bld) [#/Vol] 0.03 10*3/uL Normal 0.00-0.44 [facility] Comment on above: Performed By: #### V BG #### [facility] [address] [place] [address] [employer] Commander Deputy Sheriff: Brandan Ugalde MD Eosinophils/100 WBC (Bld) 1 % Normal 1-4 [facility] Comment on above: Performed By: #### V BG #### [address] [address] [employer] Commander Deputy Sheriff: Brandan Ugalde MD Erythrocyte distribution width (RBC) [Ratio] 14.2 % Normal 11.8-14.4 [facility] Comment on above: Performed By: #### V BG #### [place] [address] Civil [employer] Commander Deputy Sheriff: Brandan Ugalde MD Hematocrit (Bld) [Volume fraction] 30.9 % Low 36.3-47.1 [facility] Comment on above: Performed By: #### V BG #### [place] [address] Civil [employer] Commander Deputy Sheriff: Brandan Ugalde MD Hemoglobin (Bld) [Mass/Vol] 10.2 g/dL Low 11.9-15.1 [facility] Comment on above: Performed By: #### V BG #### [address] [address] Civil [employer] Commander Deputy Sheriff: Brandan Ugalde MD Immature granulocytes/100 WBC (Bld) 1 % High 0 [facility] Comment on above: Performed By: #### V BG #### [place] [address] Civil [employer] Commander Deputy Sheriff: Brandan Ugalde MD Lymphocytes (Bld) [#/Vol] 1.19 10*3/uL Normal 1.10-3.70 [facility] Comment on above: Performed By: #### V BG #### [address] [address] Civil [employer] Commander Deputy Sheriff: Brandan Ugalde MD Lymphocytes/100 WBC (Bld) 28 % Normal 24-43 [facility] Comment on above: Performed By: #### V BG #### [address] [address] Civil [employer] Commander Deputy Sheriff: Brandan Ugalde MD MCH (RBC) [Entitic mass] 29.1 pg Normal 25.2-33.5 [facility] Comment on above: Performed By: #### V BG #### [address] [address] Civil [employer] Commander Deputy Sheriff: Brandan Ugalde MD MCHC (RBC) [Mass/Vol] 33.0 g/dL Normal 28.4-34.8 [facility] Comment on above: Performed By: #### V BG #### [address] [address] Civil [employer] Commander Deputy Sheriff: Brandan Ugalde MD MCV (RBC) [Entitic vol] 88.0 fL Normal 82.6-102.9 [facility] Comment on above: Performed By: #### V BG #### [address] [address] Civil Division Commander Deputy Sheriff: Brandan Ugalde MD Monocytes (Bld) [#/Vol] 0.43 10*3/uL Normal 0.10-1.20 [facility] Comment on above: Performed By: #### V BG #### [address] [address] Civil Division Commander Deputy Sheriff: Brandan Ugalde MD Monocytes/100 WBC (Bld) 10 % Normal 3-12 [facility] Comment on above: Performed By: #### V BG #### [address] [address] Civil [employer] Commander Deputy Sheriff: Brnadan Ugalde MD Neutrophil (Seg) 60 % Normal 36-65 [facility] Comment on above: Performed By: #### V BG #### [address] [address] Civil [employer] Commander Deputy Sheriff: Brandan Ugalde MD NRBC Automated 0.0 per 100 WBC Normal 0.0 [facility] Comment on above: Performed By: #### V BG #### [address] [address] Civil [employer] Commander Deputy Sheriff: Brandan Ugalde MD Platelet mean volume (Bld) [Entitic vol] 8.5 fL Normal 8.1-13.5 [facility] Comment on above: Performed By: #### V BG #### [address] [address] Civil [employer] Commander Deputy Sheriff: Brandan Ugalde MD Platelets (Bld) [#/Vol] 70 10*3/uL Low 138-453 [facility] Comment on above: Performed By: #### V BG #### [address] [address] Civil Division Commander Deputy Sheriff: Brandan Ugalde MD RBC (Bld) [#/Vol] 3.51 10*6/uL Low 3.95-5.11 [facility] Comment on above: Performed By: #### V BG #### [address] [address] Civil [employer] Commander Deputy Sheriff: Brandan Ugalde MD WBC (Bld) [#/Vol] 4.3 10*3/uL Normal 3.5-11.3 [facility] Comment on above: Performed By: #### V BG #### [address] [address] [employer] Commander Deputy Sheriff: Brandan Ugalde MD Auto Diff Performed NOT REPORTED Normal [facility] Comment on above: Performed By: #### V BG #### [address] [address] [employer] Commander Deputy Sheriff: Brandan Ugalde MD Platelet Comment NOT REPORTED Normal [facility] Comment on above: Performed By: #### V BG #### [address] [phone] [employer] Commander Deputy Sheriff: Brandan Ugalde MD RBC morphology finding Nom (Bld) NOT REPORTED Normal [facility] Comment on above: Performed By: #### V BG #### [facility] [place], [place] [phone] [employer] Commander Deputy Sheriff: Brandan Ugalde MD WBC Morphology NOT REPORTED Normal [facility] Comment on above: Performed By: #### V BG #### [facility] [place], [place] [phone] [employer] Commander Deputy Sheriff: Brandan Ugalde MD Cult,Urineon 09-30-2021 Cult,Urine Specimen Description .CLEAN CATCH URINE Special Requests NOT REPORTED Culture YEAST, NOT SHENG ALBICANS OR SHENG DUBLINIENSIS 10 to 50,000 CFU/ML YEAST, NOT SHENG ALBICANS OR SHENG DUBLINIENSIS 10 to 50,000 CFU/ML DIFFERENT COLONY MORPHOLOGY Report Status FINAL 09/30/2021 Abnormal [facility] Comment on above: Performed By: #### V BG #### [facility] [address] [place] [address] [phone] Civil Division Commander Deputy Sheriff: Brandan Ugalde MD Culture, Urineon 09-30-2021 Bacteria identified Cx Nom (U) YEAST, NOT SHENG ALBICANS OR SHENG DUBLINIENSIS 10 to 50,000 CFU/ML Abnormal [employer] Bacteria identified Cx Nom (U) YEAST, NOT SHENG ALBICANS OR SHENG DUBLINIENSIS 10 to 50,000 CFU/ML DIFFERENT COLONY MORPHOLOGY Abnormal [employer] Interpretation and review of laboratory results Abnormal [employer] Special Requests NOT REPORTED [employer] Specimen Description .CLEAN CATCH URINE [employer] Electrolyte Panelon 09-30-19 22 Anion gap [Moles/Vol] 11 mmol/L 9 - 17 mmol/L [employer] Chloride [Moles/Vol] 115 mmol/L High 98 - 107 mmol/L [employer] CO2 [Moles/Vol] 16 mmol/L Low 20 - 31 mmol/L [employer] Interpretation and review of laboratory results Abnormal [employer] Potassium [Moles/Vol] 3.5 mmol/L Low 3.7 - 5.3 mmol/L [employer] Sodium [Moles/Vol] 142 mmol/L 135 - 144 mmol/L [facility] Electrolyteson 09-30-2021 Anion gap [Moles/Vol] 11 mmol/L Normal 9-17 [facility] Comment on above: Performed By: #### V BG #### [address] [address] Civil Division Commander Deputy Sheriff: Brandan Ugalde MD Chloride [Moles/Vol] 115 mmol/L High 98-107 [facility] Comment on above: Performed By: #### V BG #### [address] [address] Civil Division Commander Deputy Sheriff: Brandan Ugalde MD CO2 [Moles/Vol] 16 mmol/L Low 20-31 [facility] Comment on above: Performed By: #### V BG #### [address] [address] Civil Division Commander Deputy Sheriff: Brandan Ugalde MD Potassium [Moles/Vol] 3.5 mmol/L Low 3.7-5.3 [facility] Comment on above: Performed By: #### V BG #### [address] [address] Civil Division Commander Deputy Sheriff: Brandan Ugalde MD Sodium [Moles/Vol] 142 mmol/L Normal 135-144 [facility] Comment on above: Performed By: #### V BG #### [facility] [address] [place] [address] Civil Division Commander Deputy Sheriff: Brandan Ugalde MD Hemoglobin A1Con 09-30-2021 Glucose [Mass/Vol] 390 mg/dL Normal [facility] Comment on above: Result Comment: The ADA and AACC recommend providing the estimated average glucose result to permit better patient understanding of their HBA1c result. Performed By: #### V BG #### [address] [address] Civil Division Commander Deputy Sheriff: Brandan Ugalde MD HbA1c (Bld) [Mass fraction] 15.2 % High 4.0-6.0 [facility] Comment on above: Performed By: #### V BG #### [facility] [place], [place] [phone] Civil Division Commander Deputy Sheriff: Brandan Ugalde MD Glucose [Mass/Vol] 390 mg/dL [facility] Comment on above: The ADA and AACC rec ommend providing the estimated average glucose result to permit better patient understanding of their HBA1c result. HbA1c (Bld) [Mass fraction] 15.2 % High 4.0 - 6.0 % [facility] Interpretation and review of laboratory results Abnormal [facility] MAGNESIUMon 09-30-2021 Magnesium [Mass/Vol] 1.8 mg/dL 1.6 - 2.6 mg/dL [facility] 09-30-2021 Magnesium [Mass/Vol] 1.8 mg/dL Normal 1.6-2.6 [facility] Comment on above: Performed By: #### V BG #### [facility] [address] [place] [address] Civil [employer] Commander Deputy Sheriff: Brandan Ugalde MD No Panel Informationon 09-30 [facility] POC Glucose Fingerstickon Glucose [Mass/Vol] 150 mg/dL High 65 - 105 mg/dL [facility] Interpretation and review of laboratory results Abnormal [facility] Glucose [Mass/Vol] 177 mg/dL High 65 - 105 mg/dL [facility] Interpretation and review of laboratory results Abnormal [facility] Glucose [Mass/Vol] 148 mg/dL High 65 - 105 mg/dL [facility] Interpretation and review of laboratory results Abnormal [facility] Glucose [Mass/Vol] 210 mg/dL High 65 - 105 mg/dL [facility] Interpretation and review of laboratory results Abnormal [facility] SPECIMEN REJECTIONon 022 - NOT REPORTED [facility] Ordered Test CDP [facility] Reason for Rejection Unable to perform testing: Specimen clotted. [facility] Comment on above: GEORGINA MONTERO NOTIFIED Specimen source Nom (Unsp spec) .BLOOD [facility] Specimen Rejectionon 022 Reason for rejection Unable to perform testing: Specimen clotted. Normal [facility] Comment on above: Result Comment: GEORGINA MEDINA NOTIFIED Performed By: #### V BG #### [address] [address] Civil Division Commander Deputy Sheriff: Brandan Ugalde MD Source of sample .BLOOD Normal [facility] Comment on above: Performed By: #### V BG #### [address] [address] Civil Division Commander Deputy Sheriff: Brandan Ugalde MD Test ordered CDP Normal [facility] Comment on above: Performed By: #### V BG #### [address] [address] Civil Division Commander Deputy Sheriff: Brandan Ugalde MD ----- NOT REPORTED Normal [facility] Comment on above: Performed By: #### V BG #### [address] [address] Civil Division Commander Deputy Sheriff: Brandan Ugalde MD Urinalysis w/ Microon 2021 Amorphous sediment LM Ql (Urine sed) NOT REPORTED Normal [facility] Comment on above: Performed By: #### U AMIC ####[address] [phone] Director: Brandan Ugalde MD Bacteria NOT REPORTED Normal [facility] Comment on above: Performed By: #### U AMIC ####[address] [phone] Director: Brandan Ugalde MD Crystals LM Nom (Urine sed) NOT REPORTED Normal [facility] Comment on above: Performed By: #### U AMIC ####[address] [address] Lab Director: Brandan Ugalde MD Epithelial, Renal NOT REPORTED Normal [address] [place] [address] Comment on above: Performed By: #### U AMIC ####[address] [place], [place] [phone] Director: Brandan Ugalde MD Mucus Strands NOT REPORTED Normal NONE [facility] Comment on above: Performed By: #### U AMIC ####[address] [place] [address] Lab Director: Brandan Ugalde MD Other Observations NOT REPORTED Normal [facility]REQ [facility] Comment on above: Performed By: #### U AMIC ####[address] [phone] Director: Brandan Ugalde MD Trichomonas NOT REPORTED Normal NONE [facility] Comment on above: Performed By: #### U AMIC ####[address] [address] Lab Director: Brandan Ugalde MD Venous Blood Gaseson 022 Body Temp. 37.0 Normal [facility] Comment on above: Performed By: #### V BG #### [address] [address] Civil Division Commander Deputy Sheriff: Brandan Ugalde MD Carboxy Hgb 1.5 % Normal 0-5 [facility] Comment on above: Result Comment: Reference Range: Non-Smokers 0-2% Average Smoker 2-4% Heavy Smoker <10% Performed By: #### V BG #### [phone] [place] [address] Civil Division Commander Deputy Sheriff: Brandan Ugalde MD FIO2 INFORMATION NOT PROVIDED Normal [facility] Comment on above: Performed By: #### V BG #### [address] [address] Civil Division Commander Deputy Sheriff: Brandan Ugalde MD HCO3 (Bld) [Moles/Vol] 17.6 mmol/L Low 24-30 [facility] Comment on above: Performed By: #### V BG #### [facility] [address] [place] [phone] Civil Division Commander Deputy Sheriff: Brandan Ugalde MD Negative Base Excess 8.6 mmol/L High 0.0-2.0 [facility] Comment on above: Performed By: #### V BG #### [address] [address] Civil Division Commander Deputy Sheriff: Brandan Ugalde MD Oxygen (Bld) [Partial pressure] 26.8 mm[Hg] Low 30-50 [facility] Comment on above: Performed By: #### V BG #### [facility] [address] [place] [address] Civil Division Commander Deputy Sheriff: Brandan Ugalde MD Oxygen saturation in Blood 55.1 % Low 60.0-85.0 [facility] Comment on above: Performed By: #### V BG #### [address] [address] Civil Division Commander Deputy Sheriff: Brandan Ugalde MD pCO2 41.1 Normal 39-55 [facility] Comment on above: Performed By: #### V BG #### [address] [address] Civil Division Commander Deputy Sheriff: Brandan Ugalde MD pH (Bld) 7.255 [pH] Low 7.320-7.420 [facility] Comment on above: Performed By: #### V BG #### [address] [address] Civil Division Commander Deputy Sheriff: Brandan Ugalde MD Bibi Test NOT REPORTED Normal [facility] Comment on above: Performed By: #### V BG #### [address] [address] Civil Division Commander Deputy Sheriff: Brandan Ugalde MD Methemoglobin NOT REPORTED Normal 0.0-1.5 [facility] Comment on above: Performed By: #### V BG #### [address] [address] Civil Division Commander Deputy Sheriff: Brandan Ugalde MD Mode NOT REPORTED Normal [facility] Comment on above: Performed By: #### V BG #### [address] [address] Civil Division Commander Deputy Sheriff: Brandan Ugalde MD Notification Time NOT REPORTED Normal [facility] Comment on above: Performed By: #### V BG #### [address] [address] Civil Division Commander Deputy Sheriff: Brandan Ugalde MD Notification: NOT REPORTED Normal [facility] Comment on above: Performed By: #### V BG #### [address] [address] Civil Division Commander Deputy Sheriff: Brandan Ugalde MD O2 Device/Flow/% NOT REPORTED Normal [facility] Comment on above: Performed By: #### V BG #### [address] [address] Civil Division Commander Deputy Sheriff: Brandan Ugalde MD Oxyhemoglobin NOT REPORTED Normal 95.0-98.0 [facility] Comment on above: Performed By: #### V BG #### [address] [address] Civil Division Commander Deputy Sheriff: Brandan Ugalde MD Pco2 Adj'd for Temp. NOT REPORTED Normal 39-55 [facility] Comment on above: Performed By: #### V BG #### [address] [address] Civil Division Commander Deputy Sheriff: Brandan Ugalde MD PEEP/CPAP NOT REPORTED Normal [facility] Comment on above: Performed By: #### V BG #### [address] [address] Civil Division Commander Deputy Sheriff: Brandan Ugalde MD pH Adjst'd for Temp. NOT REPORTED Normal 7.320-7.[address] [facility] Comment on above: Performed By: #### V BG #### [facility] [address] [place] [address] Civil Division Commander Deputy Sheriff: Brandan Ugalde MD pO2 Adj'd for Temp. NOT REPORTED Normal 30-50 [facility] Comment on above: Performed By: #### V BG #### [address] [address] Civil Division Commander Deputy Sheriff: Brandan Ugalde MD Positive Base Excess NOT REPORTED Normal 0.0-2.0 [facility] Comment on above: Performed By: #### V BG #### [address] [address] Civil Division Commander Deputy Sheriff: Brandan Ugalde MD PSV NOT REPORTED Normal [facility] Comment on above: Performed By: #### V BG #### [address] [address] Civil Division Commander Deputy Sheriff: Brandan Ugalde MD Pt. Position NOT REPORTED Normal [facility] Comment on above: Performed By: #### V BG #### [address] [address] Civil Division Commander Deputy Sheriff: Brandan Ugalde MD Respiratory Rate NOT REPORTED Normal [facility] Comment on above: Performed By: #### V BG #### [facility] [address] [place] [phone] Civil Division Commander Deputy Sheriff: Brandan Ugalde MD Set Rate NOT REPORTED Normal [facility] Comment on above: Performed By: #### V BG #### [facility] [address] [place] [phone] Civil Division Commander Deputy Sheriff: Brandan Ugalde MD Site Drawn NOT REPORTED Normal [facility] Comment on above: Performed By: #### V BG #### [facility] [address] [place] [address] [phone] Civil Division Commander Deputy Sheriff: Brandan Ugalde MD Text for Respiratory NOT REPORTED Normal [facility] Comment on above: Performed By: #### V BG #### [facility] [place], [place] [phone] Civil Division Commander Deputy Sheriff: Brandan Ugalde MD Total Hb NOT REPORTED Normal 12.0-16.0 [facility] Comment on above: Performed By: #### V BG #### [facility] [place], [place] [phone] Civil Division Commander Deputy Sheriff: Brandan Ugalde MD Total Rate NOT REPORTED Normal [facility] Comment on above: Performed By: #### V BG #### [facility] [address] [place] [address] [phone] Civil Division Commander Deputy Sheriff: Brandan Ugalde MD VT NOT REPORTED Normal [facility] Comment on above: Performed By: #### V BG #### [facility] [address] [place] [address] Civil Division Commander Deputy Sheriff: Brandan Ugalde MD Basic Metabolic Panel 09-05 Anion gap [Moles/Vol] 11 mmol/L 9 - 17 mmol/L [facility] Calcium [Mass/Vol] 7.8 mg/dL Low 8.6 - 10.4 mg/dL [employer] [facility] [employer] Chloride [Moles/Vol] 106 mmol/L 98 - 107 mmol/L [facility] CO2 [Moles/Vol] 12 mmol/L Low 20 - 31 mmol/L [facility] [employer] Creatinine [Mass/Vol] 2.3 mg/dL High 0.50 - 0.90 mg/dL [facility] GFR 28 mL/min Low >60 [employer] GFR Non- 23 mL/min Low >60 [facility] GFR/1.73 sq M.predicted MDRD (S/P/Bld) [Vol rate/Area] [facility] Comment on above: Average GFR for 40-4 9 years old: 99 mL/min/1.73sq m Chronic Kidney Disease: <60 mL/min/1.73sq m Kidney failure: <15 mL/min/1.73sq m eGFR calculated using average adult body mass. Additional eGFR calculator available at: http://www.[employer]/multiple_crcl_2012.htm GFR/1.73 sq M.predicted MDRD (S/P/Bld) [Vol rate/Area] NOT REPORTED [facility] [employer] Glucose [Mass/Vol] 301 mg/dL High 70 - 99 mg/dL [facility] Interpretation and review of laboratory results Abnormal [facility] [employer] Potassium [Moles/Vol] 4.1 mmol/L 3.7 - 5.3 mmol/L [facility] Comment on above: SPECIMEN SLIGHTLY HE MOLYZED, RESULTS MAY BE ADVERSELY AFFECTED. Sodium [Moles/Vol] 129 mmol/L Low 135 - 144 mmol/L [facility] [employer] Urea nitrogen (BldV) [Mass/Vol] 32 mg/dL High 6 - 20 mg/dL [facility] [employer] Urea nitrogen/Creatinine (Bld) [Mass ratio] NOT REPORTED [facility] [employer] Anion gap [Moles/Vol] 11 mmol/L 9 - 17 mmol/L [employer] Calcium [Mass/Vol] 8.0 mg/dL Low 8.6 - 10.4 mg/dL [facility] [employer] Chloride [Moles/Vol] 110 mmol/L High 98 - 107 mmol/L [employer] CO2 [Moles/Vol] 12 mmol/L Low 20 - 31 mmol/L [facility] [employer] Creatinine [Mass/Vol] 2.29 mg/dL High 0.50 - 0.90 mg/dL [facility] [employer] GFR 28 mL/min Low >60 [employer] GFR Non- 23 mL/min Low >60 [employer] GFR/1.73 sq M.predicted MDRD (S/P/Bld) [Vol rate/Area] [facility] Comment on above: Average GFR for 40-4 9 years old: 99 mL/min/1.73sq m Chronic Kidney Disease: <60 mL/min/1.73sq m Kidney failure: <15 mL/min/1.73sq m eGFR calculated using average adult body mass. Additional eGFR calculator available at: http://www.[employer]/multiple_crcl_2012.htm GFR/1.73 sq M.predicted MDRD (S/P/Bld) [Vol rate/Area] NOT REPORTED [employer] Glucose [Mass/Vol] 217 mg/dL High 70 - 99 mg/dL [facility] Interpretation and review of laboratory results Abnormal [employer] Potassium [Moles/Vol] 3.4 mmol/L Low 3.7 - 5.3 mmol/L [employer] Sodium [Moles/Vol] 133 mmol/L Low 135 - 144 mmol/L [employer] Urea nitrogen (BldV) [Mass/Vol] 32 mg/dL High 6 - 20 mg/dL [employer] Urea nitrogen/Creatinine (Bld) [Mass ratio] NOT REPORTED [facility] [employer] Anion gap [Moles/Vol] 7 mmol/L Low 9 - 17 mmol/L [employer] Calcium [Mass/Vol] 8.0 mg/dL Low 8.6 - 10.4 mg/dL [facility] [employer] Chloride [Moles/Vol] 113 mmol/L High 98 - 107 mmol/L [employer] CO2 [Moles/Vol] 13 mmol/L Low 20 - 31 mmol/L [facility] [facility] Creatinine [Mass/Vol] 2.39 mg/dL High 0.50 - 0.90 mg/dL [facility] [facility] GFR 27 mL/min Low >60 [employer] GFR Non- 22 mL/min Low >60 [facility] GFR/1.73 sq M.predicted MDRD (S/P/Bld) [Vol rate/Area] [facility] [employer] Comment on above: Average GFR for 40-4 9 years old: 99 mL/min/1.73sq m Chronic Kidney Disease: <60 mL/min/1.73sq m Kidney failure: <15 mL/min/1.73sq m eGFR calculated using average adult body mass. Additional eGFR calculator available at: http://www.[employer]/multiple_crcl_2012.htm GFR/1.73 sq M.predicted MDRD (S/P/Bld) [Vol rate/Area] NOT REPORTED [facility] [employer] Glucose [Mass/Vol] 127 mg/dL High 70 - 99 mg/dL [facility] Potassium [Moles/Vol] 3.7 mmol/L 3.7 - 5.3 mmol/L [facility] [employer] Comment on above: SPECIMEN SLIGHTLY HE MOLYZED, RESULTS MAY BE ADVERSELY AFFECTED. Sodium [Moles/Vol] 133 mmol/L Low 135 - 144 mmol/L [facility] Urea nitrogen (BldV) [Mass/Vol] 32 mg/dL High 6 - 20 mg/dL [facility] Urea nitrogen/Creatinine (Bld) [Mass ratio] NOT REPORTED [facility] Basic Metabolic Profon 09-29 (cont.) Normal [facility] Comment on above: Result Comment: Aver age GFR for 40-49 years old: 99 mL/min/1.73sq m Chronic Kidney Disease: <60 mL/min/1.73sq m Kidney failure: <15 mL/min/1.73sq m eGFR calculated using average adult body mass. Additional eGFR calculator available at: http://www.[employer]/multiple_crcl_2011.htm Performed By: #### C EMILIO MASON, BMP #### [facility] [address] [place] [address] Civil [employer] Commander Deputy Sheriff: Brandan Ugalde MD Anion gap [Moles/Vol] 11 mmol/L Normal 9-17 [facility] Comment on above: Performed By: #### C ISABELLA IPF, BMP #### [facility] [address] [place] [address] Civil Division Commander Deputy Sheriff: Brandan Ugalde MD Calcium [Mass/Vol] 7.8 mg/dL Low 8.6-10.4 [facility] Comment on above: Performed By: #### C ISABELLA IPF, BMP #### [facility] [employer] [address] [place] [address] Civil Division Commander Deputy Sheriff: Brandan Ugalde MD Chloride [Moles/Vol] 106 mmol/L Normal 98-107 [facility] Comment on above: Performed By: #### C DP IPF, BMP #### [facility] [address] [place] [address] Civil Division Commander Deputy Sheriff: Brandan Ugalde MD CO2 [Moles/Vol] 12 mmol/L Low 20-31 [facility] Comment on above: Performed By: #### C DP IPF, BMP #### [facility] [employer] [address] [place] [address] Civil Division Commander Deputy Sheriff: Brandan Ugalde MD Creatinine [Mass/Vol] 2.30 mg/dL High 0.50-0.90 [facility] Comment on above: Performed By: #### C DP, IPF, BMP #### [facility] [address] [place] [phone] Civil Division Commander Deputy Sheriff: Brandan Ugalde MD GFR, Amer 28 mL/min Low >60 [facility] Comment on above: Performed By: #### C DP, IPF, BMP #### [facility] [address] [place] [phone] Civil Division Commander Deputy Sheriff: Brandan Ugalde MD GFR,non Amer 23 mL/min Low >60 [facility] Comment on above: Performed By: #### C DP IPF, BMP #### [facility] [address] [place] [address] Civil Division Commander Deputy Sheriff: Brandan Ugalde MD Glucose [Mass/Vol] 301 mg/dL High 70-99 [facility] Comment on above: Performed By: #### C ISABELLA IPF, BMP #### [facility] [address] [place] [address] Civil Division Commander Deputy Sheriff: Brandan Ugalde MD Potassium [Moles/Vol] 4.1 mmol/L Normal 3.7-5.3 [facility] Comment on above: Result Comment: SPEC IMEN SLIGHTLY HEMOLYZED, RESULTS MAY BE ADVERSELY AFFECTED. Performed By: #### C DP, IPF, BMP #### [facility] [address] [place] [phone] Civil Division Commander Deputy Sheriff: Brandan Ugalde MD Sodium [Moles/Vol] 129 mmol/L Low 135-144 [facility] Comment on above: Performed By: #### C DP, IPF, BMP #### [facility] [address] [place] [address] Civil Division Commander Deputy Sheriff: Brandan Ugalde MD Urea nitrogen [Mass/Vol] 32 mg/dL High 6-20 [facility] Comment on above: Performed By: #### C DP IPF, BMP #### [address] [address] Civil Division Commander Deputy Sheriff: Brandan Ugalde MD BUN/CRE Ratio NOT REPORTED Normal - [facility] Comment on above: Performed By: #### C DP IPF, BMP #### [facility] [address] [place] [address] Civil Division Commander Deputy Sheriff: Brandan Ugalde MD Staging: NOT REPORTED Normal [facility] Comment on above: Performed By: #### C ISABELLA IPF, BMP #### [facility] [address] [place] [phone] Civil Division Commander Deputy Sheriff: Brandan Ugalde MD (cont.) Normal [facility] Comment on above: Result Comment: Aver age GFR for 40-49 years old: 99 mL/min/1.73sq m Chronic Kidney Disease: <60 mL/min/1.73sq m Kidney failure: <15 mL/min/1.73sq m eGFR calculated using average adult body mass. Additional eGFR calculator available at: http://www.[employer]bloom/multiple_crcl_2012.htm Performed By: #### C ISABELLA IPF, BMP #### [address] [address] Civil Division Commander Deputy Sheriff: Brandan Ugalde MD Anion gap [Moles/Vol] 11 mmol/L Normal -17 [facility] Comment on above: Performed By: #### C DP IPF, BMP #### [facility] [address] [place] [address] Civil Division Commander Deputy Sheriff: Brandan Ugalde MD Calcium [Mass/Vol] 8.0 mg/dL Low 8.6-10.4 [facility] Comment on above: Performed By: #### C DP IPF, BMP #### [phone] [place] [address] Civil Division Commander Deputy Sheriff: Brandan Ugalde MD Chloride [Moles/Vol] 110 mmol/L High 98-107 [facility] Comment on above: Performed By: #### C DP IPF, BMP #### [facility] [address] [place] [address] Civil Division Commander Deputy Sheriff: Brandan Ugalde MD CO2 [Moles/Vol] 12 mmol/L Low 20-31 [facility] Comment on above: Performed By: #### C ISABELLA IPF, BMP #### [facility] [address] [place] [address] Civil [employer] Commander Deputy Sheriff: Brandan Ugalde MD Creatinine [Mass/Vol] 2.29 mg/dL High 0.50-0.90 [facility] Comment on above: Performed By: #### C ISABELLA IPF, BMP #### [facility] [address] [place] [address] Civil [employer] Commander Deputy Sheriff: Brandan Ugalde MD GFR, Amer 28 mL/min Low >60 [facility] Comment on above: Performed By: #### C ISABELLA IPF, BMP #### [facility] [facility] [address] [place] [address] Civil Division Commander Deputy Sheriff: Brandan Ugalde MD GFR,non Amer 23 mL/min Low >60 [facility] Comment on above: Performed By: #### C DP IPF, BMP #### [facility] [address] [place] [address] 88265 Civil Division Commander Deputy Sheriff: Brandan Ugalde MD Glucose [Mass/Vol] 217 mg/dL High 70-99 [facility] Comment on above: Performed By: #### C DP, IPF, BMP #### [facility] [address] [place] [address] 88808 Civil Division Commander Deputy Sheriff: Brandan Ugalde MD Potassium [Moles/Vol] 3.4 mmol/L Low 3.7-5.3 [facility] Comment on above: Performed By: #### C DP, IPF, BMP #### [facility] [address] [place] [address] Civil Division Commander Deputy Sheriff: Brandan Ugaled MD Sodium [Moles/Vol] 133 mmol/L Low 135-144 [facility] Comment on above: Performed By: #### C DP, IPF, BMP #### [facility] [address] [place] [address] 06127 Civil Division Commander Deputy Sheriff: Brandan Ugalde MD Urea nitrogen [Mass/Vol] 32 mg/dL High 6-20 [facility] Comment on above: Performed By: #### C DP, IPF, BMP #### [facility] [address] [place] [address] 62592 Civil Division Commander Deputy Sheriff: Brandan Ugalde MD BUN/CRE Ratio NOT REPORTED Normal -20 [facility] Comment on above: Performed By: #### C DP, IPF, BMP #### [facility] [address] [place] [address] 40024 Civil Division Commander Deputy Sheriff: Brandan Ugalde MD Staging: NOT REPORTED Normal [facility] Comment on above: Performed By: #### C DP, IPF, BMP #### [facility] [address] [place] [address] 59645 Civil Division Commander Deputy Sheriff: Brandan Ugalde MD (cont.) Normal [facility] Comment on above: Result Comment: Aver age GFR for 40-49 years old: 99 mL/min/1.73sq m Chronic Kidney Disease: <60 mL/min/1.73sq m Kidney failure: <15 mL/min/1.73sq m eGFR calculated using average adult body mass. Additional eGFR calculator available at: http://www.PixelSteam.Mindbloom/multiple_crcl_2012.htm Performed By: #### C DP, IPF, BMP #### [facility] [address] [place] [address] 28552 Civil Division Commander Deputy Sheriff: Brandan Ugalde MD Anion gap [Moles/Vol] 7 mmol/L Low 9-17 [facility] Comment on above: Performed By: #### C DP IPF, BMP #### [facility] [address] [place] [address] 85206 Civil Division Commander Deputy Sheriff: Brandan Ugalde MD Calcium [Mass/Vol] 8.0 mg/dL Low 8.6-10.4 [facility] Comment on above: Performed By: #### C DP, IPF, BMP #### [facility] [address] [place] [address] [phone] Civil Division Commander Deputy Sheriff: Brandan Ugalde MD Chloride [Moles/Vol] 113 mmol/L High 98-107 [facility] Comment on above: Performed By: #### C ISABELLA IPF, BMP #### [facility] [address] [place] [address] 84391 Civil Division Commander Deputy Sheriff: Brandan Ugalde MD CO2 [Moles/Vol] 13 mmol/L Low 20-31 [facility] Comment on above: Performed By: #### C ISABELLA IPF, BMP #### [facility] [address] [place] [address] 66432 Civil Division Commander Deputy Sheriff: Brandan Ugalde MD Creatinine [Mass/Vol] 2.39 mg/dL High 0.50-0.90 [facility] Comment on above: Performed By: #### C DP IPF, BMP #### [facility] [address] [place] [address] 37173 Civil Division Commander Deputy Sheriff: Brandan Ugalde MD GFR, Amer 27 mL/min Low >60 [facility] Comment on above: Performed By: #### C DP IPF, BMP #### [facility] [address] [place] [address] 59266 Civil Division Commander Deputy Sheriff: Brandan Ugalde MD GFR,non Amer 22 mL/min Low >60 [facility] Comment on above: Performed By: #### C DP, IPF, BMP #### [facility] [address] [place] [address] 42200 Civil Division Commander Deputy Sheriff: Brandan Ugalde MD Glucose [Mass/Vol] 127 mg/dL High 70-99 [facility] Comment on above: Performed By: #### C DP, IPF, BMP #### [facility] [address] [place] [address] 94896 Civil Division Commander Deputy Sheriff: Brandan Ugalde MD Potassium [Moles/Vol] 3.7 mmol/L Normal 3.7-5.3 [facility] Comment on above: Result Comment: SPEC IMEN SLIGHTLY HEMOLYZED, RESULTS MAY BE ADVERSELY AFFECTED. Performed By: #### C DP, IPF, BMP #### [facility] [address] [place] [address] 34036 Civil Division Commander Deputy Sheriff: Brandan Ugalde MD Sodium [Moles/Vol] 133 mmol/L Low 135-144 [facility] Comment on above: Performed By: #### C DP, IPF, BMP #### [facility] [employer] [address] [place] [address] 11000 Civil Division Commander Deputy Sheriff: Brandan Ugalde MD Urea nitrogen [Mass/Vol] 32 mg/dL High 6-20 [facility] Comment on above: Performed By: #### C DP, IPF, BMP #### [facility] [employer] [address] [place] [address] 67030 Civil Division Commander Deputy Sheriff: Brandan Ugalde MD BUN/CRE Ratio NOT REPORTED Normal 9-20 [facility] Comment on above: Performed By: #### C DP, IPF, BMP #### [facility] [address] [place] [address] 89452 Civil Division Commander Deputy Sheriff: Brandan Ugalde MD Staging: NOT REPORTED Normal [facility] Comment on above: Performed By: #### C DP, IPF, BMP #### [facility] [address] [place] [address] 98282 Civil Division Commander Deputy Sheriff: Brandan Ugalde MD (cont.) Normal [facility] Comment on above: Result Comment: Aver age GFR for 40-49 years old: 99 mL/min/1.73sq m Chronic Kidney Disease: <60 mL/min/1.73sq m Kidney failure: <15 mL/min/1.73sq m eGFR calculated using average adult body mass. Additional eGFR calculator available at: http://www.inWebo Technologies/multiple_crcl_2011.htm Performed By: #### C EMILIO MASON BMP #### [facility] [address] [place] [address] 35134 Civil Division Commander Deputy Sheriff: Brandan Ugalde MD Anion gap [Moles/Vol] 6 mmol/L Low 9-17 [facility] Comment on above: Performed By: #### C EMILIO MASON BMP #### [address] [address] Civil Division Commander Deputy Sheriff: Brandan Ugalde MD Calcium [Mass/Vol] 8.5 mg/dL Low 8.6-10.4 [facility] Comment on above: Performed By: #### C EMILIO MASON BMP #### [facility] [address] [place] [address] 75967 Civil Division Commander Deputy Sheriff: Brandan Ugalde MD Chloride [Moles/Vol] 110 mmol/L High 98-107 [facility] Comment on above: Performed By: #### C EMILIO MASON, BMP #### [facility] [address] [place] [address] 03635 Civil Division Commander Deputy Sheriff: Brandan Ugalde MD CO2 [Moles/Vol] 15 mmol/L Low 20-31 [facility] Comment on above: Performed By: #### C EMILIO MASON, BMP #### [facility] [address] [place] [address] 85619 Civil Division Commander Deputy Sheriff: Brandan Ugalde MD Creatinine [Mass/Vol] 2.24 mg/dL High 0.50-0.90 [facility] Comment on above: Performed By: #### C DP, IPF, BMP #### [facility] [address] [place] [address] 74511 Civil Division Commander Deputy Sheriff: Brandan Ugalde MD GFR, Amer 29 mL/min Low >60 [facility] Comment on above: Performed By: #### C DP, IPF, BMP #### [facility] [address] [place] [address] 90714 Civil Division Commander Deputy Sheriff: Brandan Ugalde MD GFR,non Amer 24 mL/min Low >60 [facility] Comment on above: Performed By: #### C DP, IPF, BMP #### [facility] [address] [place] [address] 53460 Civil Division Commander Deputy Sheriff: Brandan Ugalde MD Glucose [Mass/Vol] 156 mg/dL High 70-99 [facility] Comment on above: Performed By: #### C DP, IPF, BMP #### [facility] [address] [place] [address] 79627 Civil Division Commander Deputy Sheriff: Brandan Ugalde MD Potassium [Moles/Vol] 3.4 mmol/L Low 3.7-5.3 [facility] Comment on above: Performed By: #### C DP, IPF, BMP #### [facility] [address] [place] [address] 11824 Civil Division Commander Deputy Sheriff: Brandan Ugalde MD Sodium [Moles/Vol] 131 mmol/L Low 135-144 [facility] Comment on above: Performed By: #### C DP, IPF, BMP #### [facility] [address] [place] [address] 00275 Civil Division Commander Deputy Sheriff: Brandan Ugalde MD Urea nitrogen [Mass/Vol] 32 mg/dL High 6-20 [facility] Comment on above: Performed By: #### C DP, IPF, BMP #### [facility] [address] [place] [address] [phone] Civil Division Commander Deputy Sheriff: Brandan Ugalde MD Blood Gas, Venouson 09-29-19 22 Bbii Test NOT REPORTED [facility] Carboxyhemoglobin 1.2 % 0 - 5 % [facility]alt Comment on above: Reference Range: Non-Smokers 0-2% Average Smoker 2-4% Heavy Smoker <10% FIO2 INFORMATION NOT PROVIDED [facility] HCO3 (Bld) [Moles/Vol] 15.2 mmol/L Low 24 - 30 mmol/L [facility] Interpretation and review of laboratory results Abnormal [facility] Methemoglobin NOT REPORTED 0.0 - 1.5 % [employer] [facility] Mode NOT REPORTED [facility] Negative Base Excess, Earnest 10.6 mmol/L High 0.0 - 2.0 mmol/L [facility] NOTIFICATION NOT REPORTED [facility] NOTIFICATION TIME NOT REPORTED [facility] O2 Device/Flow/% NOT REPORTED [facility] Oxygen saturation in Blood 80.9 % 60.0 - 85.0 % [facility] [employer] [facility] Oxyhemoglobin NOT REPORTED 95.0 - 98.0 % [facility] pCO2, Earnest 34.9 Low [facility] pCO2, Earnest, Temp Adj NOT REPORTED [facility] Peep/Cpap NOT REPORTED [facility] pH, Earnest 7.261 Low [facility] pH, Earnest, Temp Adj NOT REPORTED [facility] pO2, Earnest 39.5 [facility] pO2, Earnest, Temp Adj NOT REPORTED [facility] Positive Base Excess, Earnest NOT REPORTED 0.0 - 2.0 mmol/L [facility] PSV NOT REPORTED [facility] Pt Temp 37.0 [employer] [facility] Pt. Position NOT REPORTED [facility] Respiratory Rate NOT REPORTED [facility] Sample Site NOT REPORTED [facility] h Set Rate NOT REPORTED [facility] Text for Respiratory NOT REPORTED [facility] Total Hb NOT REPORTED 12.0 - 16.0 g/dl [facility] Total Rate NOT REPORTED [facility] [place] NOT REPORTED [facility] CBC auto differentialon 09-05 Absolute Eos # <0.03 [facility] th Absolute Immature Granulocyte 0.07 [facility] Absolute Lymph # 1.85 [facility] Absolute Fleming # 0.79 [facility] Basophils (Bld) [#/Vol] 10*3/uL [facility] [employer] [facility] Basophils/100 WBC (Bld) 0 % 0 - 2 % [facility] Differential Type NOT REPORTED [employer] Eosinophils/100 WBC (Bld) 0 % Low 1 - 4 % [employer] Hematocrit (Bld) [Volume fraction] 34.1 % Low 36.3 - 47.1 % [facility], [employer] Hemoglobin.gastroint estinal spec 1 Ql (Stl) 10.8 g/dL Low 11.9 - 15.1 g/dL [facility] Immature granulocytes/100 WBC (Bld) 1 % High 0 [facility] Interpretation and review of laboratory results Abnormal [facility] Lymphocytes/100 WBC (Bld) 21 % Low 24 - 43 % [facility] MCH (RBC) [Entitic mass] 28.1 pg 25.2 - 33.5 pg [facility] MCHC (RBC) [Mass/Vol] 31.7 g/dL 28.4 - 34.8 g/dL [facility] MCV (RBC) [Entitic vol] 88.6 fL 82.6 - 102.9 fL [facility] Monocytes/100 WBC (Bld) 9 % 3 - 12 % [facility] NRBC Automated 0.0 0.0 per 100 WBC [facility] Platelet distribution width (Bld) [Ratio] 14.0 % 11.8 - 14.4 % [employer] Platelet Estimate NOT REPORTED [facility] [employer] Platelet mean volume (Bld) [Entitic vol] 9.0 fL 8.1 - 13.5 fL [employer] Platelets (Bld) [#/Vol] 107 10*3/uL Low [facility] RBC (Bld) [#/Vol] 3.85 10*6/uL Low 3.95 - 5.11 m/uL [employer] RBC (Bld) [#/Vol] NOT REPORTED [facility] Segmented neutrophils/100 WBC (Bld) 69 % High 36 - 65 % [employer] Segs [facility] [#/Vol] 8.8 10*3/uL [facility] WBC (Bld) [#/Vol] NOT REPORTED [facility] CBC with Diffon 09-29-2021 Abs. Basophil <0.03 Normal 0.00-0.20 [facility] Comment on above: Performed By: #### C DP, IPF, BMP #### [facility] [address] [place] [address] Civil Division Commander Deputy Sheriff: Brandan Ugalde MD Abs. Eosinophil <0.03 Normal 0.00-0.44 [facility] Comment on above: Performed By: #### C ISABELLA IPF, BMP #### [address] [address] Civil Division Commander Deputy Sheriff: Brandan Ugalde MD Abs.Imm.Granulocyte 0.07 k/uL Normal 0.00-0.30 [facility] Comment on above: Performed By: #### C DP IPF, BMP #### [address] [address] Civil Division Commander Deputy Sheriff: Brandan Ugalde MD Abs.Neutrophil (Seg) 6.03 k/uL Normal 1.50-8.10 [facility] Comment on above: Performed By: #### C ISABELLA IPF, BMP #### [address] [address] Civil Division Commander Deputy Sheriff: Brandan Ugalde MD Basophils/100 WBC (Bld) 0 % Normal 0-2 [facility] Comment on above: Performed By: #### C ISABELLA IPF, BMP #### [address] [address] Civil Division Commander Deputy Sheriff: Brandan Ugalde MD Eosinophils/100 WBC (Bld) 0 % Low 1-4 [facility] Comment on above: Performed By: #### C ISABELLA IPF, BMP #### [address] [address] Civil Division Commander Deputy Sheriff: Brandan Ugalde MD Erythrocyte distribution width (RBC) [Ratio] 14.0 % Normal 11.8-14.4 [facility] Comment on above: Performed By: #### C DP IPF, BMP #### [facility] [address] [place] [address] 28679 Civil Division Commander Deputy Sheriff: Brandan Ugalde MD Hematocrit (Bld) [Volume fraction] 34.1 % Low 36.3-47.1 [facility] Comment on above: Performed By: #### C DP, IPF, BMP #### [facility] [address] [place] [address] 98023 Civil Division Commander Deputy Sheriff: Brandan Ugalde MD Hemoglobin (Bld) [Mass/Vol] 10.8 g/dL Low 11.9-15.1 [facility] Comment on above: Performed By: #### C DP, IPF, BMP #### [facility] [address] [place] [address] 67098 Civil Division Commander Deputy Sheriff: Brandan Ugalde MD Immature granulocytes/100 WBC (Bld) 1 % High 0 [facility] Comment on above: Performed By: #### C DP, IPF, BMP #### [address] [address] Civil Division Commander Deputy Sheriff: Brandan Ugalde MD Lymphocytes (Bld) [#/Vol] 1.85 10*3/uL Normal 1.10-3.70 [facility] Comment on above: Performed By: #### C DP IPF, BMP #### [address] [address] Civil Division Commander Deputy Sheriff: Brandan Ugalde MD Lymphocytes/100 WBC (Bld) 21 % Low 24-43 [facility] Comment on above: Performed By: #### C DP IPF, BMP #### [facility] [address] [place] [address] 07177 Civil Division Commander Deputy Sheriff: Brandan Ugalde MD MCH (RBC) [Entitic mass] 28.1 pg Normal 25.2-33.5 [facility] Comment on above: Performed By: #### C DP, IPF, BMP #### [facility] [address] [place] [address] 08515 Civil Division Commander Deputy Sheriff: Brandan Ugalde MD MCHC (RBC) [Mass/Vol] 31.7 g/dL Normal 28.4-34.8 [facility] Comment on above: Performed By: #### C DP, IPF, BMP #### [address] [address] Civil Division Commander Deputy Sheriff: Brandan Ugalde MD MCV (RBC) [Entitic vol] 88.6 fL Normal 82.6-102.9 [facility] Comment on above: Performed By: #### C DP, IPF, BMP #### [address] [address] Civil Division Commander Deputy Sheriff: Brandan Ugalde MD Monocytes (Bld) [#/Vol] 0.79 10*3/uL Normal 0.10-1.20 [facility] Comment on above: Performed By: #### C DP, IPF, BMP #### [address] [address] Civil Division Commander Deputy Sheriff: Brandan Ugalde MD Monocytes/100 WBC (Bld) 9 % Normal 3-12 [facility] Comment on above: Performed By: #### C DP, IPF, BMP #### [address] [address] Civil Division Commander Deputy Sheriff: Brandan Ugalde MD Neutrophil (Seg) 69 % High 36-65 [facility] Comment on above: Performed By: #### C DP, IPF, BMP #### [address] [address] Civil Division Commander Deputy Sheriff: Brandan Ugalde MD NRBC Automated 0.0 per 100 WBC Normal 0.0 [facility] Comment on above: Performed By: #### C DP, IPF, BMP #### [place] [address] Civil Division Commander Deputy Sheriff: Brandan Ugalde MD Platelet mean volume (Bld) [Entitic vol] 9.0 fL Normal 8.1-13.5 [facility] Comment on above: Performed By: #### C DP, IPF, BMP #### [address] [address] Civil Division Commander Deputy Sheriff: Brandan Ugalde MD Platelets (Bld) [#/Vol] 107 10*3/uL Low 138-453 [facility] Comment on above: Performed By: #### C DP, IPF, BMP #### [address] [address] Civil Division Commander Deputy Sheriff: Brandan Ugalde MD RBC (Bld) [#/Vol] 3.85 10*6/uL Low 3.95-5.11 [facility] Comment on above: Performed By: #### C DP, IPF, BMP #### [address] [address] Civil Division Commander Deputy Sheriff: Brandan Ugalde MD WBC (Bld) [#/Vol] 8.8 10*3/uL Normal 3.5-11.3 [facility] Comment on above: Performed By: #### C DP, IPF, BMP #### [facility] [address] [place] [address] 11241 Civil Division Commander Deputy Sheriff: Brandan Ugalde MD Auto Diff Performed NOT REPORTED Normal [facility] Comment on above: Performed By: #### C DP, IPF, BMP #### [facility] [address] [place] [address] 95876 Civil Division Commander Deputy Sheriff: Brandan Ugalde MD Platelet Comment NOT REPORTED Normal [facility] Comment on above: Performed By: #### C DP, IPF, BMP #### [facility] [address] [place] [address] 51880 Civil Division Commander Deputy Sheriff: Brandan Ugalde MD RBC morphology finding Nom (Bld) NOT REPORTED Normal [facility] Comment on above: Performed By: #### C DP, IPF, BMP #### [facility] [address] [place] [address] 9[address]17 Civil Division Commander Deputy Sheriff: Brandan Ugalde MD WBC Morphology NOT REPORTED Normal [facility] Comment on above: Performed By: #### C EMILIO MASON, BMP #### [address] [place] [address] Civil Division Commander Deputy Sheriff: Brandan Ugalde MD MRSA DNA Probe, Nasalon 09-05 MRSA, DNA, Nasal Negative NEGATIVE [facility] Comment on above: NEGATIVE: MRSA DNA n [...] [facility] MRSA, DNA, Nasalon MRSA, DNA, Nasal Negative Normal NEG [facility] Comment on above: Result Comment: NEGA [...] By: #### C EMILIO MASON, BMP #### [address] [place] [address] Civil Division Commander Deputy Sheriff: Brandan Ugalde MD Magnesiumon 09-29-2021 Magnesium [Mass/Vol] 1.7 mg/dL Normal 1.6-2.6 [facility] Comment on above: Performed By: #### C EMILIO MASON, BMP #### [facility] [employer] [address] [place] [address] Civil Division Commander Deputy Sheriff: Brandan Ugalde MD Magnesium [Mass/Vol] 1.7 mg/dL 1.6 - 2.6 mg/dL [facility] Magnesium [Mass/Vol] 1.8 mg/dL Normal 1.6-2.6 [facility] Comment on above: Performed By: #### C EMILIO MASON, BMP #### [address] [place] [address] Civil Division Commander Deputy Sheriff: Brandan Ugalde MD Magnesium [Mass/Vol] 1.8 mg/dL 1.6 - 2.6 mg/dL [facility] Magnesium [Mass/Vol] 1.9 mg/dL Normal 1.6-2.6 [facility] Comment on above: Performed By: #### C EMILIO MASON, BMP #### [facility] [address] [place], [place] [phone] Civil Division Commander Deputy Sheriff: Brandan Ugalde MD Magnesium [Mass/Vol] 1.9 mg/dL 1.6 - 2.6 mg/dL [facility] Magnesium [Mass/Vol] 1.8 mg/dL Normal 1.6-2.6 [facility] Comment on above: Performed By: #### C EMILIO MASON, BMP #### [address] [place], [place] [phone] Civil Division Commander Deputy Sheriff: Brandan Ugalde MD No Panel Informationon 09-29 [facility] Interpretation and review of laboratory results Abnormal [facility] POC Glucose Fingerstickon Glucose [Mass/Vol] 159 mg/dL High 65 - 105 mg/dL [facility] Interpretation and review of laboratory results Abnormal [facility] Glucose [Mass/Vol] 166 mg/dL High 65 - 105 mg/dL [facility] Interpretation and review of laboratory results Abnormal [facility] Glucose [Mass/Vol] 227 mg/dL High 65 - 105 mg/dL [facility] Interpretation and review of laboratory results Abnormal [facility] Glucose [Mass/Vol] 290 mg/dL High 65 - 105 mg/dL [facility] Interpretation and review of laboratory results Abnormal [facility] Glucose [Mass/Vol] 269 mg/dL High 65 - 105 mg/dL [facility] Interpretation and review of laboratory results Abnormal [facility] Glucose [Mass/Vol] 137 mg/dL High 65 - 105 mg/dL [facility] Interpretation and review of laboratory results Abnormal [facility] Phosphoruson 09-29-2021 Phosphate [Mass/Vol] 3.1 mg/dL 2.6 - 4.5 mg/dL [facility] Phosphate [Mass/Vol] 3.0 mg/dL 2.6 - 4.5 mg/dL [facility] Phosphate [Mass/Vol] 1.9 mg/dL Low 2.6 - 4.5 mg/dL [facility] Phosphorus, In[employer].on Phosphorus, Inorg. 3.1 mg/dL Normal 2.6-4.5 [facility] Comment on above: Performed By: #### C DP, IPF, BMP #### [address] [place] [address] Civil Division Commander Deputy Sheriff: Brandan Ugalde MD Phosphorus, Inorg. 3.0 mg/dL Normal 2.6-4.5 [facility] Comment on above: Performed By: #### C DP, IPF, BMP #### [facility] [address] [place] [address] Civil Division Commander Deputy Sheriff: Brandan Ugalde MD Phosphorus, Inorg. 1.9 mg/dL Low 2.6-4.5 [facility] Comment on above: Performed By: #### C DP, IPF, BMP #### [address] [place] [address] Civil Division Commander Deputy Sheriff: Brandan Ugalde MD Phosphorus, Inorg. 1.9 mg/dL Low 2.6-4.5 [facility] Comment on above: Performed By: #### C DP, IPF, BMP #### [address] [place] [address] Civil [employer] Commander Deputy Sheriff: Brandan Ugalde MD SPECIMEN REJECTIONon - NOT REPORTED [facility] Ordered Test [facility] Reason for Rejection Unable to perform testing: Specimen clotted. [facility] Specimen source Nom (Unsp spec) .BLOOD [facility] Specimen Rejectionon Reason for rejection Unable to perform testing: Specimen clotted. Normal [facility] Comment on above: Performed By: #### C DP, IPF, BMP #### [address] [place] [address] Civil [employer] Commander Deputy Sheriff: Brandan Ugalde MD Source of sample .BLOOD Normal [facility] Comment on above: Performed By: #### C DP, IPF, BMP #### [facility] [employer] [address] [place] [address] Civil [employer] Commander Deputy Sheriff: Brandan Ugalde MD Test ordered VBG Normal [facility] Comment on above: Performed By: #### C DP, IPF, BMP #### [facility] [address] [place] [address] Civil Division Commander Deputy Sheriff: Brandan Ugalde MD ----- NOT REPORTED Normal [facility] Comment on above: Performed By: #### C DP, IPF, BMP #### [facility] [address] [place] [address] Civil Division Commander Deputy Sheriff: Brandan Ugalde MD Venous Blood Gaseson 022 Body Temp. 37.0 Normal [facility] Comment on above: Performed By: #### C DP, IPF, BMP #### [facility] [address] [place] [address] Civil Division Commander Deputy Sheriff: Brandan Ugalde MD Carboxy Hgb 1.2 % Normal 0-5 [facility] Comment on above: Result Comment: Reference Range: Non-Smokers 0-2% Average Smoker 2-4% Heavy Smoker <10% Performed By: #### C DP, IPF, BMP #### [facility] [employer] [address] [address] Civil Division Commander Deputy Sheriff: Brandan Ugalde MD FIO2 INFORMATION NOT PROVIDED Normal [facility] Comment on above: Performed By: #### C DP, IPF, BMP #### [facility] [address] [place] [address] 9[address]57 Civil Division Commander Deputy Sheriff: Brandan Ugalde MD HCO3 (Bld) [Moles/Vol] 15.2 mmol/L Low 24-30 [facility] Comment on above: Performed By: #### C DP, IPF, BMP #### [facility] [address] [place] [address] 9[address]97 Civil Division Commander Deputy Sheriff: Brandan Ugalde MD Negative Base Excess 10.6 mmol/L High 0.0-2.[address] [facility] Comment on above: Performed By: #### C DP IPF, BMP #### [address] [address] Civil Division Commander Deputy Sheriff: Brandan Ugalde MD Oxygen (Bld) [Partial pressure] 39.5 mm[Hg] Normal 30-50 [facility] Comment on above: Performed By: #### C DP, IPF, BMP #### [address] [address] Civil Division Commander Deputy Sheriff: Brandan Ugalde MD Oxygen saturation in Blood 80.9 % Normal 60.0-85.0 [facility] Comment on above: Performed By: #### C DP IPF, BMP #### [facility] [address] [place] [address] Civil Division Commander Deputy Sheriff: Brandan Ugalde MD pCO2 34.9 Low 39-55 [facility] Comment on above: Performed By: #### C DP, IPF, BMP #### [facility] [address] [place] [address] Civil Division Commander Deputy Sheriff: Brandan Ugalde MD pH (Bld) 7.261 [pH] Low 7.320-7.420 [facility] Comment on above: Performed By: #### C DP, IPF, BMP #### [facility] [address] [place] [address] Civil Division Commander Deputy Sheriff: Brandan Ugalde MD Bibi Test NOT REPORTED Normal [facility] Comment on above: Performed By: #### C DP, IPF, BMP #### [facility] [address] [place] [address] Civil Division Commander Deputy Sheriff: Brandan Ugalde MD Methemoglobin NOT REPORTED Normal 0.0-1.5 [facility] Comment on above: Performed By: #### C DP, IPF, BMP #### [facility] [address] [place] [address] Civil Division Commander Deputy Sheriff: Brandan Ugalde MD Mode NOT REPORTED Normal [facility] Comment on above: Performed By: #### C DP, IPF, BMP #### [facility] [address] [place] [address] 23978 Civil Division Commander Deputy Sheriff: Brandan Ugalde MD Notification Time NOT REPORTED Normal [facility] Comment on above: Performed By: #### C DP, IPF, BMP #### [facility] [address] [place] [address] 26521 Civil Division Commander Deputy Sheriff: Brandan Ugalde MD Notification: NOT REPORTED Normal [facility] Comment on above: Performed By: #### C DP, IPF, BMP #### [address] [address] Civil Division Commander Deputy Sheriff: Brandan Ugalde MD O2 Device/Flow/% NOT REPORTED Normal [facility] Comment on above: Performed By: #### C DP, IPF, BMP #### [address] [address] Civil Division Commander Deputy Sheriff: Brandan Ugalde MD Oxyhemoglobin NOT REPORTED Normal 95.0-98.0 [facility] Comment on above: Performed By: #### C DP, IPF, BMP #### [facility] [address] [place] [address] Civil Division Commander Deputy Sheriff: Brandan Ugalde MD Pco2 Adj'd for Temp. NOT REPORTED Normal 39-55 [facility] Comment on above: Performed By: #### C DP, IPF, BMP #### [facility] [employer] [address] [place] [address] 9[address]13 Civil Division Commander Deputy Sheriff: Brandan Ugalde MD PEEP/CPAP NOT REPORTED Normal [facility] Comment on above: Performed By: #### C DP, IPF, BMP #### [facility] [address] [place] [address] 49[address] Civil Division Commander Deputy Sheriff: Brandan Ugalde MD pH Adjst'd for Temp. NOT REPORTED Normal 7.320-7.[address] [facility] Comment on above: Performed By: #### C DP, IPF, BMP #### [address] [address] Civil Division Commander Deputy Sheriff: Brandan Ugalde MD pO2 Adj'd for Temp. NOT REPORTED Normal 30-50 [facility] Comment on above: Performed By: #### C DP, IPF, BMP #### [address] [address] Civil Division Commander Deputy Sheriff: Brandan Ugalde MD Positive Base Excess NOT REPORTED Normal 0.0-2.0 [facility] Comment on above: Performed By: #### C DP, IPF, BMP #### [address] [address] Civil Division Commander Deputy Sheriff: Brandan Ugalde MD PSV NOT REPORTED Normal [facility] Comment on above: Performed By: #### C DP, IPF, BMP #### [address] [address] Civil Division Commander Deputy Sheriff: Brandan Ugalde MD Pt. Position NOT REPORTED Normal [facility] Comment on above: Performed By: #### C DP, IPF, BMP #### [facility] [address] [place] [address] Civil Division Commander Deputy Sheriff: Brandan Ugalde MD Respiratory Rate NOT REPORTED Normal [facility] Comment on above: Performed By: #### C DP, IPF, BMP #### [facility] [address] [place] [address] 9[address] Civil Division Commander Deputy Sheriff: Brandan Ugalde MD Set Rate NOT REPORTED Normal [facility] Comment on above: Performed By: #### C DP, IPF, BMP #### [employer] [address] [place] [address] Civil Division Commander Deputy Sheriff: Brandan Ugalde MD Site Drawn NOT REPORTED Normal [facility] Comment on above: Performed By: #### C DP, IPF, BMP #### [facility] [address] [place] [address] Civil Division Commander Deputy Sheriff: Brandan Ugalde MD Text for Respiratory NOT REPORTED Normal [facility] Comment on above: Performed By: #### C DP, IPF, BMP #### [facility] [address] [place] [address] 8[address] Civil Division Commander Deputy Sheriff: Brandan Ugaled MD Total Hb NOT REPORTED Normal 12.0-16.0 [facility] Comment on above: Performed By: #### C DP, IPF, BMP #### [facility] [address] [place] [address] 90237 Civil Division Commander Deputy Sheriff: Brandan Ugalde MD Total Rate NOT REPORTED Normal [facility] Comment on above: Performed By: #### C DP, IPF, BMP #### [facility] [address] [place] [address] 14822 Civil Division Commander Deputy Sheriff: Brandan Ugalde MD [place] NOT REPORTED Normal [facility] Comment on above: Performed By: #### C DP, IPF, BMP #### [facility] [address] [place] [address] 13619 Civil Division Commander Deputy Sheriff: Brandan Ugalde MD BASIC METABOLIC PANELon 09-05 Anion gap [Moles/Vol] 13 mmol/L 9 - 17 mmol/L [facility] Calcium [Mass/Vol] 8.7 mg/dL 8.6 - 10.4 mg/dL [facility] Chloride [Moles/Vol] 115 mmol/L High 98 - 107 mmol/L [facility] CO2 [Moles/Vol] 14 mmol/L Low 20 - 31 mmol/L [facility] Creatinine [Mass/Vol] 2.15 mg/dL High 0.50 - 0.90 mg/dL [facility] GFR 30 mL/min Low >60 [facility] GFR Non- 25 mL/min Low >60 [employer] GFR/1.73 sq M.predicted MDRD (S/P/Bld) [Vol rate/Area] [facility] Comment on above: Average GFR for 40-4 9 years old: 99 mL/min/1.73sq m Chronic Kidney Disease: <60 mL/min/1.73sq m Kidney failure: <15 mL/min/1.73sq m eGFR calculated using average adult body mass. Additional eGFR calculator available at: http://www.inWebo Technologies/multiple_crcl_2012.htm GFR/1.73 sq M.predicted MDRD (S/P/Bld) [Vol rate/Area] NOT REPORTED [facility] [employer] Glucose [Mass/Vol] 160 mg/dL High 70 - 99 mg/dL [facility] Interpretation and review of laboratory results Abnormal [employer] Potassium [Moles/Vol] 2.9 mmol/L Critically low 3.7 - 5.3 mmol/L [facility] Sodium [Moles/Vol] 142 mmol/L 135 - 144 mmol/L [facility] Urea nitrogen (BldV) [Mass/Vol] 33 mg/dL High 6 - 20 mg/dL [facility] Urea nitrogen/Creatinine (Bld) [Mass ratio] NOT REPORTED [facility] [employer] [facility] BLOOD GAS, VENOUSon 09-28-19 Bibi Test NOT REPORTED [employer] Carboxyhemoglobin 2.2 % 0 - 5 % [facility] Comment on above: Reference Range: Non-Smokers 0-2% Average Smoker 2-4% Heavy Smoker <10% FIO2 UNKNOWN [facility] HCO3 (Bld) [Moles/Vol] 17.3 mmol/L Low 24 - 30 mmol/L [facility] Interpretation and review of laboratory results Abnormal [employer] Methemoglobin NOT REPORTED 0.0 - 1.5 % [facility] [employer] alth Mode NOT REPORTED [employer] Negative Base Excess, Earnest 8.2 mmol/L High 0.0 - 2.0 mmol/L [facility] [employer] [facility] NOTIFICATION NOT REPORTED [facility] th NOTIFICATION TIME NOT REPORTED [employer] O2 Device/Flow/% NOT REPORTED [employer] Oxygen saturation in Blood 80.7 % 60.0 - 85.0 % [employer] Oxyhemoglobin NOT REPORTED 95.0 - 98.0 % [employer] pCO2, Earnest 37.0 Low [facility] pCO2, Earnest, Temp Adj NOT REPORTED [facility] Peep/Cpap NOT REPORTED [facility] pH, Earnest 7.290 Low [facility] pH, Earnest, Temp Adj NOT REPORTED [facility] pO2, Earnest 34.0 [facility] pO2, Earnest, Temp Adj NOT REPORTED [facility] Positive Base Excess, Earnest NOT REPORTED 0.0 - 2.0 mmol/L [facility] PSV NOT REPORTED [facility] Pt Temp 37.0 [facility] Pt. Position NOT REPORTED [facility] [employer] th Respiratory Rate NOT REPORTED [facility] Sample Site NOT REPORTED [facility] [employer] [facility] Set Rate NOT REPORTED [facility] Text for Respiratory NOT REPORTED [facility] Total Hb NOT REPORTED 12.0 - 16.0 g/dl [facility] [employer] Total Rate NOT REPORTED [facility] [place] NOT REPORTED [facility] [employer] Basic Metabolic Panelon 09-05 Anion gap [Moles/Vol] 6 mmol/L Low 9 - 17 mmol/L [facility] Calcium [Mass/Vol] 8.5 mg/dL Low 8.6 - 10.4 mg/dL [facility] [employer] Chloride [Moles/Vol] 110 mmol/L High 98 - 107 mmol/L [facility] [employer] CO2 [Moles/Vol] 15 mmol/L Low 20 - 31 mmol/L [facility] [employer] Creatinine [Mass/Vol] 2.24 mg/dL High 0.50 - 0.90 mg/dL [facility] [employer] GFR 29 mL/min Low >60 [employer] GFR Non- 24 mL/min Low >60 [facility] GFR/1.73 sq M.predicted MDRD (S/P/Bld) [Vol rate/Area] [facility] [employer] Comment on above: Average GFR for 40-4 9 years old: 99 mL/min/1.73sq m Chronic Kidney Disease: <60 mL/min/1.73sq m Kidney failure: <15 mL/min/1.73sq m eGFR calculated using average adult body mass. Additional eGFR calculator available at: http://www.in[employer]/multiple_crcl_2012.htm GFR/1.73 sq M.predicted MDRD (S/P/Bld) [Vol rate/Area] NOT REPORTED [facility] [employer] Glucose [Mass/Vol] 156 mg/dL High 70 - 99 mg/dL [employer] Potassium [Moles/Vol] 3.4 mmol/L Low 3.7 - 5.3 mmol/L [employer] Sodium [Moles/Vol] 131 mmol/L Low 135 - 144 mmol/L [facility] Urea nitrogen (BldV) [Mass/Vol] 32 mg/dL High 6 - 20 mg/dL [facility] [employer] Urea nitrogen/Creatinine (Bld) [Mass ratio] NOT REPORTED [facility] [employer] Anion gap [Moles/Vol] 10 mmol/L 9 - 17 mmol/L [employer] Calcium [Mass/Vol] 8.2 mg/dL Low 8.6 - 10.4 mg/dL [facility] Chloride [Moles/Vol] 113 mmol/L High 98 - 107 mmol/L [employer] CO2 [Moles/Vol] 16 mmol/L Low 20 - 31 mmol/L [employer] [facility] Creatinine [Mass/Vol] 2.2 mg/dL High 0.50 - 0.90 mg/dL [employer] GFR 30 mL/min Low >60 [employer] GFR Non- 24 mL/min Low >60 [employer] GFR/1.73 sq M.predicted MDRD (S/P/Bld) [Vol rate/Area] [facility] [employer] Comment on above: Average GFR for 40-4 9 years old: 99 mL/min/1.73sq m Chronic Kidney Disease: <60 mL/min/1.73sq m Kidney failure: <15 mL/min/1.73sq m eGFR calculated using average adult body mass. Additional eGFR calculator available at: http://www.PixelSteam.Mindbloom/multiple_crcl_2012.htm GFR/1.73 sq M.predicted MDRD (S/P/Bld) [Vol rate/Area] NOT REPORTED [facility] [employer] Glucose [Mass/Vol] 231 mg/dL High 70 - 99 mg/dL [employer] Potassium [Moles/Vol] 4.5 mmol/L 3.7 - 5.3 mmol/L [facility] [employer] Comment on above: SPECIMEN SLIGHTLY HE MOLYZED, RESULTS MAY BE ADVERSELY AFFECTED. Sodium [Moles/Vol] 139 mmol/L 135 - 144 mmol/L [employer] Urea nitrogen (BldV) [Mass/Vol] 33 mg/dL High 6 - 20 mg/dL [employer] Urea nitrogen/Creatinine (Bld) [Mass ratio] NOT REPORTED [facility] Anion gap [Moles/Vol] 17 mmol/L 9 - 17 mmol/L [facility] Calcium [Mass/Vol] 8.7 mg/dL 8.6 - 10.4 mg/dL [facility] Chloride [Moles/Vol] 116 mmol/L High 98 - 107 mmol/L [facility] CO2 [Moles/Vol] 12 mmol/L Low 20 - 31 mmol/L [facility] Creatinine [Mass/Vol] 2.22 mg/dL High 0.50 - 0.90 mg/dL [facility] GFR 29 mL/min Low >60 [facility] GFR Non- 24 mL/min Low >60 [facility] GFR/1.73 sq M.predicted MDRD (S/P/Bld) [Vol rate/Area] [facility] Comment on above: Average GFR for 40-4 9 years old: 99 mL/min/1.73sq m Chronic Kidney Disease: <60 mL/min/1.73sq m Kidney failure: <15 mL/min/1.73sq m eGFR calculated using average adult body mass. Additional eGFR calculator available at: http://www.inWebo [employer]/multiple_crcl_2012.htm GFR/1.73 sq M.predicted MDRD (S/P/Bld) [Vol rate/Area] NOT REPORTED [facility] Glucose [Mass/Vol] 232 mg/dL High 70 - 99 mg/dL [facility] Potassium [Moles/Vol] 3.2 mmol/L Low 3.7 - 5.3 mmol/L [facility] Sodium [Moles/Vol] 145 mmol/L High 135 - 144 mmol/L [facility] Urea nitrogen (BldV) [Mass/Vol] 35 mg/dL High 6 - 20 mg/dL [facility] Urea nitrogen/Creatinine (Bld) [Mass ratio] NOT REPORTED [facility] Basic Metabolic Profon 09-28 BUN/CRE Ratio NOT REPORTED Normal 05-24 [facility] Comment on above: Performed By: #### C DP, IPF, BMP #### [facility] [address] [place] [address] Civil Division Commander Deputy Sheriff: Brandan Ugalde MD Staging: NOT REPORTED Normal [facility] Comment on above: Performed By: #### C DP IPF, BMP #### [address] [address] Civil Division Commander Deputy Sheriff: Brandan Ugalde MD (cont.) Normal [facility] Comment on above: Result Comment: Aver age GFR for 40-49 years old: 99 mL/min/1.73sq m Chronic Kidney Disease: <60 mL/min/1.73sq m Kidney failure: <15 mL/min/1.73sq m eGFR calculated using average adult body mass. Additional eGFR calculator available at: http://www.inWebo [employer]/multiple_crcl_2011.htm Performed By: #### C ISABELLA IPF, BMP #### [address] [address] Civil Division Commander Deputy Sheriff: Brandan Ugalde MD Anion gap [Moles/Vol] 10 mmol/L Normal 9-17 [facility] Comment on above: Performed By: #### C ISABELLA IPF, BMP #### [address] [address] Civil Division Commander Deputy Sheriff: Brandan Ugalde MD Calcium [Mass/Vol] 8.2 mg/dL Low 8.6-10.4 [facility] Comment on above: Performed By: #### C ISABELLA IPF, BMP #### [facility] [address] [place] [address] Civil Division Commander Deputy Sheriff: Brandan Ugalde MD Chloride [Moles/Vol] 113 mmol/L High 98-107 [facility] Comment on above: Performed By: #### C DP IPF, BMP #### [facility] [employer] [address] [place] [address] Civil Division Commander Deputy Sheriff: Brandan Ugalde MD CO2 [Moles/Vol] 16 mmol/L Low 20-31 [facility] Comment on above: Performed By: #### C DP, IPF, BMP #### [facility] [address] [place] [address] Civil Division Commander Deputy Sheriff: Brandan Ugalde MD Creatinine [Mass/Vol] 2.20 mg/dL High 0.50-0.90 [facility] Comment on above: Performed By: #### C DP, IPF, BMP #### [facility] [address] [place] [address] Civil Division Commander Deputy Sheriff: Brandan Ugalde MD GFR, Amer 30 mL/min Low >60 [facility] Comment on above: Performed By: #### C DP, IPF, BMP #### [facility] [address] [place] [address] Civil Division Commander Deputy Sheriff: Brandan Ugalde MD GFR,non Amer 24 mL/min Low >60 [facility] Comment on above: Performed By: #### C DP, IPF, BMP #### [facility] [address] [place] [address] Civil Division Commander Deputy Sheriff: Brandan Ugalde MD Glucose [Mass/Vol] 231 mg/dL High 70-99 [facility] Comment on above: Performed By: #### C DP, IPF, BMP #### [facility] [address] [place] [address] Civil Division Commander Deputy Sheriff: Brandan Ugalde MD Potassium [Moles/Vol] 4.5 mmol/L Normal 3.7-5.3 [facility] Comment on above: Result Comment: SPEC IMEN SLIGHTLY HEMOLYZED, RESULTS MAY BE ADVERSELY AFFECTED. Performed By: #### C DP, IPF, BMP #### [facility] [address] [place] [address] Civil Division Commander Deputy Sheriff: Brandan Ugalde MD Sodium [Moles/Vol] 139 mmol/L Normal 135-144 [facility] Comment on above: Performed By: #### C DP, IPF, BMP #### [facility] [address] [place] [address] Civil Division Commander Deputy Sheriff: Brandan Ugalde MD Urea nitrogen [Mass/Vol] 33 mg/dL High 6-20 [facility] Comment on above: Performed By: #### C DP IPF, BMP #### [id number] [place] [address] Civil Division Commander Deputy Sheriff: Brandan Ugalde MD BUN/CRE Ratio NOT REPORTED Normal -20 [facility] Comment on above: Performed By: #### C DP IPF, BMP #### [facility] [address] [place] [address] Civil Division Commander Deputy Sheriff: Brandan Ugalde MD Staging: NOT REPORTED Normal [facility] Comment on above: Performed By: #### C EMILIO MASON, BMP #### [facility] [address] [place] [address] Civil Division Commander Deputy Sheriff: Brandan Ugalde MD (cont.) Normal [facility] Comment on above: Result Comment: Aver age GFR for 40-49 years old: 99 mL/min/1.73sq m Chronic Kidney Disease: <60 mL/min/1.73sq m Kidney failure: <15 mL/min/1.73sq m eGFR calculated using average adult body mass. Additional eGFR calculator available at: http://www.PixelSteam.Mindbloom/multiple_crcl_2012.htm Performed By: #### B MP, MG, MARZENA #### [facility] [address] [place] [address] Civil [employer] Commander Deputy Sheriff: Brandan Ugalde MD Anion gap [Moles/Vol] 17 mmol/L Normal 9-17 [facility] Comment on above: Performed By: #### B MP, MG, MARZENA #### [facility] [place] [address] Civil Division Commander Deputy Sheriff: Brandan Ugalde MD Calcium [Mass/Vol] 8.7 mg/dL Normal 8.6-10.4 [facility] Comment on above: Performed By: #### B MP, MG, MARZENA #### [facility] [place] [address] Civil Division Commander Deputy Sheriff: Brandan Ugalde MD Chloride [Moles/Vol] 116 mmol/L High 98-107 [facility] Comment on above: Performed By: #### B MP, MG, MARZENA #### [facility] [address] [place] [address] Civil Division Commander Deputy Sheriff: Brandan Ugalde MD CO2 [Moles/Vol] 12 mmol/L Low 20-31 [facility] Comment on above: Performed By: #### B MP, MG, MARZENA #### [facility] [address] [place] [address] Civil Division Commander Deputy Sheriff: Brandan Ugalde MD Creatinine [Mass/Vol] 2.22 mg/dL High 0.50-0.90 [facility] Comment on above: Performed By: #### B MP, MG, MARZENA #### [facility] [address] [place] [address] Civil Division Commander Deputy Sheriff: Brandan Ugalde MD GFR, Amer 29 mL/min Low >60 [facility] Comment on above: Performed By: #### B MP, MG, MARZENA #### [facility] [address] [place] [address]658 Civil Division Commander Deputy Sheriff: Brandan Ugalde MD GFR,non Amer 24 mL/min Low >60 [facility] Comment on above: Performed By: #### B MP, MG, MARZENA #### [facility] [address] [place] [address] Civil Division Commander Deputy Sheriff: Brandan Ugalde MD Glucose [Mass/Vol] 232 mg/dL High 70-99 [facility] Comment on above: Performed By: #### B MP, MG, MARZENA #### [facility] [address] [place] [address] Civil Division Commander Deputy Sheriff: Brandan Ugalde MD Potassium [Moles/Vol] 3.2 mmol/L Low 3.7-5.3 [facility] Comment on above: Performed By: #### B MP, MG, MARZENA #### [facility] [address] [place] [address] Civil [employer] Commander Deputy Sheriff: Brandan Ugalde MD Sodium [Moles/Vol] 145 mmol/L High 135-144 [facility] Comment on above: Performed By: #### B MP, MG, MARZENA #### [facility] [address] [place] [address] Civil [employer] Commander Deputy Sheriff: Brandan Ugalde MD Urea nitrogen [Mass/Vol] 35 mg/dL High 6-20 [facility] Comment on above: Performed By: #### B MP, MG, MARZENA #### [facility] [facility] [address] [place] [address] 50331 Civil Division Commander Deputy Sheriff: Brandan Ugalde MD BUN/CRE Ratio NOT REPORTED Normal -20 [facility] Comment on above: Performed By: #### B MP, MG, MARZENA #### [facility] [address] [place] [address] 68014 Civil Division Commander Deputy Sheriff: Brandan Ugalde MD Staging: NOT REPORTED Normal [facility] Comment on above: Performed By: #### B MP, MG, MARZENA #### [facility] [address] [place] [address] 56300 Civil Division Commander Deputy Sheriff: Brandan Ugalde MD (cont.) Normal [facility] Comment on above: Result Comment: Aver age GFR for 40-49 years old: 99 mL/min/1.73sq m Chronic Kidney Disease: <60 mL/min/1.73sq m Kidney failure: <15 mL/min/1.73sq m eGFR calculated using average adult body mass. Additional eGFR calculator available at: http://www.PixelSteam.Mindbloom/multiple_crcl_2012.htm Performed By: #### C DP, IPF, BMP #### [facility] [address] [place] [address] 11441 Civil Division Commander Deputy Sheriff: Brandan Ugalde MD Anion gap [Moles/Vol] 13 mmol/L Normal 9-17 [facility] Comment on above: Performed By: #### C DP IPF, BMP #### [facility] [address] [place] [address] 60113 Civil Division Commander Deputy Sheriff: Brandan Ugalde MD Calcium [Mass/Vol] 8.7 mg/dL Normal 8.6-10.4 [facility] Comment on above: Performed By: #### C DP, IPF, BMP #### [facility] [address] [place] [address] 93225 Civil Division Commander Deputy Sheriff: Brandan Ugalde MD Chloride [Moles/Vol] 115 mmol/L High 98-107 [facility] Comment on above: Performed By: #### C DP IPF, BMP #### [address] [address] Civil Division Commander Deputy Sheriff: Brandan Ugalde MD CO2 [Moles/Vol] 14 mmol/L Low 20-31 [facility] Comment on above: Performed By: #### C DP IPF, BMP #### [facility] [address] [place] [address] 06575 Civil Division Commander Deputy Sheriff: Brandan Ugalde MD Creatinine [Mass/Vol] 2.15 mg/dL High 0.50-0.90 [facility] Comment on above: Performed By: #### C DP, IPF, BMP #### [facility] [address] [place] [address] 33095 Civil Division Commander Deputy Sheriff: Brandan Ugalde MD GFR, Amer 30 mL/min Low >60 [facility] Comment on above: Performed By: #### C DP, IPF, BMP #### [facility] [address] [place] [address] 91220 Civil Division Commander Deputy Sheriff: Brandan Ugalde MD GFR,non Amer 25 mL/min Low >60 [facility] Comment on above: Performed By: #### C DP, IPF, BMP #### [facility] [address] [place] [address] Civil Division Commander Deputy Sheriff: Brandan Ugalde MD Glucose [Mass/Vol] 160 mg/dL High 70-99 [facility] Comment on above: Performed By: #### C DP, IPF, BMP #### [facility] [address] [place] [address] Civil Division Commander Deputy Sheriff: Brandan Ugalde MD Potassium [Moles/Vol] 2.9 mmol/L Critically low 3.7-5.3 [facility] Comment on above: Performed By: #### C DP, IPF, BMP #### [facility] [address] [place] [address] 17812 Civil Division Commander Deputy Sheriff: Brandan Ugalde MD Sodium [Moles/Vol] 142 mmol/L Normal 135-144 [facility] Comment on above: Performed By: #### C DP, IPF, BMP #### [facility] [address] [place] [address]863 Civil Division Commander Deputy Sheriff: Brandan Ugalde MD Urea nitrogen [Mass/Vol] 33 mg/dL High 6-20 [facility] Comment on above: Performed By: #### C DP, IPF, BMP #### [facility] [address] [place] [address] Civil Division Commander Deputy Sheriff: Brandan Ugalde MD BUN/CRE Ratio NOT REPORTED Normal -20 [facility] Comment on above: Performed By: #### C DP, IPF, BMP #### [facility] [address] [place] [address] Civil Division Commander Deputy Sheriff: Brandan Ugalde MD Staging: NOT REPORTED Normal [facility] Comment on above: Performed By: #### C DP, IPF, BMP #### [facility] [address] [place] [address] Civil Division Commander Deputy Sheriff: Brandan Ugalde MD CBC WITH AUTO DIFFERENTIALon 09-28-2021 Absolute Eos # <0.03 [facility] th Absolute Immature Granulocyte 0.18 [facility] Absolute Lymph # 1.06 Low [facility] Absolute Fleming # 1.03 [facility] Basophils (Bld) [#/Vol] 10*3/uL [facility] SDI Basophils/100 WBC (Bld) 0 % 0 - 2 % [facility] Differential Type NOT REPORTED [facility] Eosinophils/100 WBC (Bld) 0 % Low 1 - 4 % [facility] Hematocrit (Bld) [Volume fraction] 36.2 % Low 36.3 - 47.1 % [facility], [facility] Hemoglobin.gastroint estinal spec 1 Ql (Stl) 12.8 g/dL 11.9 - 15.1 g/dL [facility] Immature granulocytes/100 WBC (Bld) 1 % High 0 [facility] Interpretation and review of laboratory results Abnormal [facility] Lymphocytes/100 WBC (Bld) 8 % Low 24 - 43 % [facility] MCH (RBC) [Entitic mass] 29.1 pg 25.2 - 33.5 pg [facility] MCHC (RBC) [Mass/Vol] 35.4 g/dL High 28.4 - 34.8 g/dL [facility] MCV (RBC) [Entitic vol] 82.3 fL Low 82.6 - 102.9 fL [facility] Monocytes/100 WBC (Bld) 8 % 3 - 12 % [facility] NRBC Automated 0.0 0.0 per 100 WBC [facility] Platelet distribution width (Bld) [Ratio] 13.2 % 11.8 - 14.4 % [facility] Platelet Estimate NOT REPORTED [facility] Platelet mean volume (Bld) [Entitic vol] NOT REPORTED 8.1 - 13.5 fL [facility], [facility] Platelets (Bld) [#/Vol] See Reflexed IPF Result [facility] RBC (Bld) [#/Vol] 4.40 10*6/uL 3.95 - 5.11 m/uL [facility] SDI RBC (Bld) [#/Vol] MICROCYTOSIS PRESENT [facility] Segmented neutrophils/100 WBC (Bld) 82 % High 36 - 65 % [facility] Segs Absolute 10.34 [facility] [#/Vol] 12.6 10*3/uL High [facility] WBC (Bld) [#/Vol] NOT REPORTED [facility] CBC with Diffon 09-28-2021 Abs. Basophil <0.03 Normal 0.00-0.20 [facility] Comment on above: Performed By: #### C DP IPF, BMP #### [facility] [address] [place] [address] 6[address]65 Civil Division Commander Deputy Sheriff: Brandan Ugalde MD Abs. Eosinophil <0.03 Normal 0.00-0.44 [facility] Comment on above: Performed By: #### C ISABELLA IPF, BMP #### [facility] [address] [place] [address] 09325 Civil Division Commander Deputy Sheriff: Brandan Ugalde MD Abs.Imm.Granulocyte 0.18 k/uL Normal 0.00-0.30 [facility] Comment on above: Performed By: #### C ISABELLA IPF, BMP #### [facility] [address] [place] [address] 86688 Civil Division Commander Deputy Sheriff: Brandan Ugalde MD Abs.Neutrophil (Seg) 10.34 k/uL High 1.50-8.10 [facility] Comment on above: Performed By: #### C ISABELLA IPF, BMP #### [facility] [address] [place] [address] 06427 Civil Division Commander Deputy Sheriff: Brandan Ugalde MD Basophils/100 WBC (Bld) 0 % Normal 0-2 [facility] Comment on above: Performed By: #### C DP IPF, BMP #### [facility] [address] [place] [address] 66604 Civil Division Commander Deputy Sheriff: Brandan Ugalde MD Eosinophils/100 WBC (Bld) 0 % Low 1-4 [facility] Comment on above: Performed By: #### C DP IPF, BMP #### [facility] [address] [place] [address] 58342 Civil Division Commander Deputy Sheriff: Brandan Ugalde MD Erythrocyte distribution width (RBC) [Ratio] 13.2 % Normal 11.8-14.4 [facility] Comment on above: Performed By: #### C EMILIO MASON, BMP #### [facility] [address] [place] [address] 40330 Civil Division Commander Deputy Sheriff: Brandan Ugalde MD Hematocrit (Bld) [Volume fraction] 36.2 % Low 36.3-47.1 [facility] Comment on above: Performed By: #### C ISABELLA IPF, BMP #### [facility] [address] [place] [address] 43912 Civil Division Commander Deputy Sheriff: Brandan Ugalde MD Hemoglobin (Bld) [Mass/Vol] 12.8 g/dL Normal 11.9-15.1 [facility] Comment on above: Performed By: #### C ISABELLA IPF, BMP #### [address] [address] Civil Division Commander Deputy Sheriff: Brandan Ugalde MD Immature granulocytes/100 WBC (Bld) 1 % High 0 [facility] Comment on above: Performed By: #### C ISABELLA IPF, BMP #### [address] [address] Civil Division Commander Deputy Sheriff: Brandan Ugalde MD Lymphocytes (Bld) [#/Vol] 1.06 10*3/uL Low 1.10-3.70 [facility] Comment on above: Performed By: #### C ISABELLA IPF, BMP #### [facility] [address] [place] [address] 25695 Civil Division Commander Deputy Sheriff: Brandan Ugalde MD Lymphocytes/100 WBC (Bld) 8 % Low 24-43 [facility] Comment on above: Performed By: #### C ISABELLA IPF, BMP #### [facility] [address] [place] [address] 76461 Civil Division Commander Deputy Sheriff: Brandan Ugalde MD MCH (RBC) [Entitic mass] 29.1 pg Normal 25.2-33.5 [facility] Comment on above: Performed By: #### C DP, IPF, BMP #### [facility] [address] [place] [address] 15153 Civil Division Commander Deputy Sheriff: Brandan Ugalde MD MCHC (RBC) [Mass/Vol] 35.4 g/dL High 28.4-34.8 [facility] Comment on above: Performed By: #### C DP, IPF, BMP #### [facility] [address] [place] [address] 43551 Civil Division Commander Deputy Sheriff: Brandan Ugalde MD MCV (RBC) [Entitic vol] 82.3 fL Low 82.6-102.9 [facility] Comment on above: Performed By: #### C DP, IPF, BMP #### [facility] [address] [place] [address] Civil Division Commander Deputy Sheriff: Brandan Ugalde MD Monocytes (Bld) [#/Vol] 1.03 10*3/uL Normal 0.10-1.20 [facility] Comment on above: Performed By: #### C DP, IPF, BMP #### [facility] [address] [place] [address] 67229 Civil Division Commander Deputy Sheriff: Brandan Ugalde MD Monocytes/100 WBC (Bld) 8 % Normal 3-12 [facility] Comment on above: Performed By: #### C DP, IPF, BMP #### [facility] [address] [place] [address] 04460 Civil Division Commander Deputy Sheriff: Brandan Ugalde MD Neutrophil (Seg) 82 % High 36-65 [facility] Comment on above: Performed By: #### C DP, IPF, BMP #### [facility] [address] [place] [address] 15007 Civil Division Commander Deputy Sheriff: Brandan Ugalde MD NRBC Automated 0.0 per 100 WBC Normal 0.0 [facility] Comment on above: Performed By: #### C DP, IPF, BMP #### [facility] [place] [address] Civil Division Commander Deputy Sheriff: Brandan Ugalde MD Platelet Count See Reflexed IPF Result Normal 138-453 [facility] Comment on above: Performed By: #### C DP, IPF, BMP #### [address] [address] Civil Division Commander Deputy Sheriff: Brandan Ugalde MD RBC (Bld) [#/Vol] 4.40 10*6/uL Normal 3.95-5.11 [facility] Comment on above: Performed By: #### C DP, IPF, BMP #### [address] [address] Civil Division Commander Deputy Sheriff: Brandan Ugalde MD RBC morphology finding Nom (Bld) MICROCYTOSIS PRESENT Normal [facility] Comment on above: Performed By: #### C DP, IPF, BMP #### [address] [address] Civil Division Commander Deputy Sheriff: Brandan Ugalde MD WBC (Bld) [#/Vol] 12.6 10*3/uL High 3.5-11.3 [facility] Comment on above: Performed By: #### C DP, IPF, BMP #### [address] [address] Civil Division Commander Deputy Sheriff: Brandan Ugalde MD Auto Diff Performed NOT REPORTED Normal [facility] Comment on above: Performed By: #### C DP, IPF, BMP #### [facility] [address] [place] [address] 96743 Civil Division Commander Deputy Sheriff: Brandan Ugalde MD MPV NOT REPORTED Normal 8.1-13.5 [facility] Comment on above: Performed By: #### C DP, IPF, BMP #### [address] [address] Civil Division Commander Deputy Sheriff: Brandan Ugalde MD Platelet Comment NOT REPORTED Normal [facility] Comment on above: Performed By: #### C DP, IPF, BMP #### [facility] [address] [place] [address] 24218 Civil Division Commander Deputy Sheriff: Brandan Ugalde MD WBC Morphology NOT REPORTED Normal [facility] Comment on above: Performed By: #### C DP, IPF, BMP #### [facility] [address] [place] [address]52 Civil Division Commander Deputy Sheriff: Brandan Ugalde MD Immature Platelet Fractionon 09-28-2021 Interpretation and review of laboratory results Abnormal [facility] Platelet, Fluorescence 147 [facility] Comment on above: ORDERED BY LAB Platelet, Immature Fraction 0.4 % Low 1.1 - 10.3 % [facility] Comment on above: ORDERED BY LAB [facility] LACTIC ACID, WHOLE BLOODon 0 09-28-2021 Lactic Acid, Whole Blood 1.4 mmol/L 0.7 - 2.1 mmol/L [facility] Lactic Acid,Whole Blon 09-28 Lactic Acid,Whole Bl 1.4 mmol/L Normal 0.7-2.1 [facility] Comment on above: Performed By: #### L ACWB #### [facility] [address] [place] [address] 89468 Civil Division Commander Deputy Sheriff: Brandan Ugalde MD MRSA, DNA, Nasalon 2 Specimen Description .NASAL SWAB Normal [facility] Comment on above: Performed By: #### C DP, IPF, BMP #### [facility] [address] [place] [address] 31573 Civil Division Commander Deputy Sheriff: Brandan Ugalde MD Magnesiumon 09-28-2021 Magnesium [Mass/Vol] 1.8 mg/dL 1.6 - 2.6 mg/dL [facility] Magnesium [Mass/Vol] 1.9 mg/dL Normal 1.6-2.6 [facility] Comment on above: Performed By: #### C DP, IPF, BMP #### [facility] [address] [place] [address] Civil Division Commander Deputy Sheriff: Brandan Ugalde MD Magnesium [Mass/Vol] 1.9 mg/dL 1.6 - 2.6 mg/dL [facility] Magnesium [Mass/Vol] 2.1 mg/dL Normal 1.6-2.6 [facility] Comment on above: Performed By: #### B MP, MG, MARZENA #### [facility] [address] [place] [address] Civil Division Commander Deputy Sheriff: Brandan Ugalde MD Magnesium [Mass/Vol] 2.1 mg/dL 1.6 - 2.6 mg/dL [facility] Microscopic Urinalysison - [facility] Amorphous, UA NOT REPORTED None [facility] [employer] [facility] l[facility] Bacteria, UA NOT REPORTED None [facility] th Casts UA FINE GRANULAR [facility] C[facility] UA 5 TO 10 [facility] Crystals, UA NOT REPORTED None /HPF [facility] th Epithelial Cells UA 5 TO 10 [facility] Interpretation and review of laboratory results Abnormal [facility] Mucus, UA NOT REPORTED None [facility] Other Observations UA NOT REPORTED NOT REQ. [facility] RBC, UA 5 TO 10 [facility] Renal Epithelial, UA NOT REPORTED 0 /HPF [facility] Trichomonas, UA NOT REPORTED None [facility] ealth WBC, UA 5 TO 10 [facility] Yeast, UA MODERATE Abnormal None [facility] No Panel Informationon 09-28 Interpretation and review of laboratory results Abnormal [facility] Interpretation and review of laboratory results Abnormal [facility] Interpretation and review of laboratory results Abnormal [facility] PLT, Immature Fract.on 09-28 Platelet, Fluoresc. 147 k/uL Normal 138-453 [facility] Comment on above: Result Comment: ORDE RED BY LAB Performed By: #### C DP, IPF, BMP #### [address] [address] [place] [address] Civil Division Commander Deputy Sheriff: Brandan Ugalde MD PLT, Immature Fract. 0.4 % Low 1.1-10.3 [facility] Comment on above: Result Comment: ORDE RED BY LAB Performed By: #### C DP, IPF, BMP #### [facility] [address] [place] [address] Civil Division Commander Deputy Sheriff: Brandan Ugalde MD POC Glucose Fingerstickon Glucose [Mass/Vol] 140 mg/dL High 65 - 105 mg/dL [facility] Interpretation and review of laboratory results Abnormal [facility] Health Glucose [Mass/Vol] 148 mg/dL High 65 - 105 mg/dL [facility] Interpretation and review of laboratory results Abnormal [facility] Health Glucose [Mass/Vol] 161 mg/dL High 65 - 105 mg/dL [facility] Interpretation and review of laboratory results Abnormal [facility] Health Glucose [Mass/Vol] 176 mg/dL High 65 - 105 mg/dL [facility] Interpretation and review of laboratory results Abnormal [facility] Health Glucose [Mass/Vol] 212 mg/dL High 65 - 105 mg/dL [facility] Health Interpretation and review of laboratory results Abnormal [facility] Health Glucose [Mass/Vol] 223 mg/dL High 65 - 105 mg/dL [facility] Health Interpretation and review of laboratory results Abnormal [facility] Health Glucose [Mass/Vol] 208 mg/dL High 65 - 105 mg/dL [facility] Interpretation and review of laboratory results Abnormal [facility] Health Glucose [Mass/Vol] 248 mg/dL High 65 - 105 mg/dL [facility] Health Interpretation and review of laboratory results Abnormal [facility] Health Glucose [Mass/Vol] 217 mg/dL High 65 - 105 mg/dL [facility] Interpretation and review of laboratory results Abnormal [facility] Health Glucose [Mass/Vol] 205 mg/dL High 65 - 105 mg/dL [facility] Interpretation and review of laboratory results Abnormal [facility] Health Glucose [Mass/Vol] 199 mg/dL High 65 - 105 mg/dL [facility] Interpretation and review of laboratory results Abnormal [facility] Health Glucose [Mass/Vol] 178 mg/dL High 65 - 105 mg/dL [facility] Interpretation and review of laboratory results Abnormal [facility] Glucose [Mass/Vol] 151 mg/dL High 65 - 105 mg/dL [facility] Interpretation and review of laboratory results Abnormal [facility] Glucose [Mass/Vol] 162 mg/dL High 65 - 105 mg/dL [facility] Interpretation and review of laboratory results Abnormal [facility] Phosphoruson 09-28-2021 Phosphate [Mass/Vol] 1.9 mg/dL Low 2.6 - 4.5 mg/dL [facility] Phosphate [Mass/Vol] 1.6 mg/dL Low 2.6 - 4.5 mg/dL [facility] Phosphate [Mass/Vol] 1.9 mg/dL Low 2.6 - 4.5 mg/dL [facility] Phosphorus, Inorg.on 022 Phosphorus, Inorg. 1.6 mg/dL Low 2.6-4.5 [facility] Comment on above: Performed By: #### C EMILIO MASON, BMP #### [facility] [address] [place], [place] [id number] Civil Division Commander Deputy Sheriff: Brandan Ugalde MD Phosphorus, Inorg. 1.9 mg/dL Low 2.6-4.5 [facility] Comment on above: Performed By: #### C EMILIO MASON, BMP #### [facility] [address] [place], [place] [phone] Civil Division Commander Deputy Sheriff: Brandan Ugalde MD Urinalysison 09-28-2021 Bilirubin Urine Negative NEGATIVE [facility] lt Color, UA Yellow Yellow [facility] Glucose, Ur 1+ Abnormal NEGATIVE [facility] Interpretation and review of laboratory results Abnormal [facility] Ketones Ql (U) SMALL Abnormal NEGATIVE [facility] Leukocyte esterase Test strip Ql (U) MODERATE Abnormal NEGATIVE [facility] Nitrite, Urine Negative NEGATIVE [facility] pH, UA 5.5 [facility] Protein, UA 2+ Abnormal NEGATIVE [facility] Specific Joice, UA 1.016 [facility] Turbidity UA Turbid Abnormal Clear [facility] Urinalysis Comments NOT REPORTED [facility] Urine Hgb LARGE Abnormal NEGATIVE [facility] Urobilinogen, Urine Normal Normal [facility] Urinalysis, Routineon 2021 Bilirubin, SemiQt,Ur Negative Normal NEG [facility] Comment on above: Performed By: #### U A, UMICAO #### [facility] [address] [place] [address] Civil [employer] Commander Deputy Sheriff: Brandan Ugalde MD Blood, Urine LARGE Abnormal NEG [facility] Comment on above: Performed By: #### U A, UMICAO #### [facility] [address] [place] [address] Civil Division Commander Deputy Sheriff: Brandan Ugalde MD Clarity (U) Turbid Abnormal CLEAR [facility] Comment on above: Performed By: #### U A, UMICAO #### [facility] [address] [place] [address] Civil Division Commander Deputy Sheriff: Brandan Ugalde MD Color (U) Yellow Normal YEL [facility] Comment on above: Performed By: #### U A, UMICAO #### [facility] [address] [place] [address] 25063 Civil [employer] Commander Deputy Sheriff: Brandan Ugalde MD Glucose Ql (U) 1+ Abnormal NEG [facility] Comment on above: Performed By: #### U A, UMICAO #### [facility] [address] [place] [address] Civil Division Commander Deputy Sheriff: Brandan Ugalde MD Ketones Ql (U) SMALL Abnormal NEG [facility] Comment on above: Performed By: #### U A, UMICAO #### [facility] [address] [place] [address] 08298 Civil Division Commander Deputy Sheriff: Brandan Ugalde MD Leukocyte esterase Test strip Ql (U) MODERATE Abnormal NEG [facility] Comment on above: Performed By: #### U A, UMICAO #### [facility] [address] [place] [address] Civil [employer] Commander Deputy Sheriff: Brandan Ugalde MD Nitrite,Ur Negative Normal NEG [facility] Comment on above: Performed By: #### U A, UMICAO #### [facility] [address] [place] [address] Civil Division Commander Deputy Sheriff: Brandan Ugalde MD PH,Ur 5.5 Normal 5.0-8.0 [facility] Comment on above: Performed By: #### U A UMICAO #### [facility] [address] [place] [address] Civil [employer] Commander Deputy Sheriff: Brandan Ugalde MD Protein Ql (U) 2+ Abnormal NEG [facility] Comment on above: Performed By: #### U A UMICAO #### [facility] [address] [place] [address] Civil [employer] Commander Deputy Sheriff: Brandan Ugalde MD Spec. Joice,Ur 1.016 Normal 1.005-1.030 [facility] Comment on above: Performed By: #### U A UMICAO #### [facility] [address] [place] [address] [employer] Commander Deputy Sheriff: Brandan Ugalde MD Urobilinogen,Ur Normal Normal NORM [facility] Comment on above: Performed By: #### U A UMICAO #### [address] [address] Civil Division Commander Deputy Sheriff: Brandan Ugalde MD Comment NOT REPORTED Normal [facility] Comment on above: Performed By: #### U A UMICAO #### [address] [address] Civil Division Commander Deputy Sheriff: Brandan Ugalde MD Urinalysis,Microon 2 ----- Normal [facility] Comment on above: Performed By: #### U A, UMICAO #### [address] [address] Civil Division Commander Deputy Sheriff: Brandan Ugalde MD Casts FINE GRANULAR Normal 0-2 [facility] Comment on above: Result Comment: 5 TO 10 Performed By: #### U A UMICAO #### [facility] [address] [place] [address] Civil Division Commander Deputy Sheriff: Brandan Ugalde MD Epithelial cells LM Ql (Urine sed) 5 TO 10 Normal 0-5 [facility] Comment on above: Performed By: #### U A, UMICAO #### [facility] [address] [place] [address] Civil Division Commander Deputy Sheriff: Brandan Ugalde MD Urine RBC's 5 TO 10 Normal 0-2 [facility] Comment on above: Performed By: #### U A, UMICAO #### [facility] [address] [place] [address] Civil Division Commander Deputy Sheriff: Brandan Ugalde MD Urine WBC's 5 TO 10 Normal 0-5 [facility] Comment on above: Performed By: #### U A, UMICAO #### [address] [address] Civil Division Commander Deputy Sheriff: Brandan Ugalde MD Yeast MODERATE Abnormal NONE [facility] Comment on above: Performed By: #### U A, UMICAO #### [address] [address] Civil Division Commander Deputy Sheriff: Brandan Ugalde MD Amorphous sediment LM Ql (Urine sed) NOT REPORTED Normal [facility] Comment on above: Performed By: #### U A, UMICAO #### [facility] [address] [place] [address] Civil Division Commander Deputy Sheriff: Brandan Ugalde MD Bacteria NOT REPORTED Normal [facility] Comment on above: Performed By: #### U A, UMICAO #### [facility] [address] [place] [address] Civil Division Commander Deputy Sheriff: Brandan Ugalde MD Crystals LM Nom (Urine sed) NOT REPORTED Normal [facility] Comment on above: Performed By: #### U A, UMICAO #### [facility] [address] [place] [address] Civil Division Commander Deputy Sheriff: Brandan Ugalde MD Epithelial, Renal NOT REPORTED Normal 0 [facility] Comment on above: Performed By: #### U PRATIBHA Phipps #### [facility] [address] [place] [address] Civil Division Commander Deputy Sheriff: Brandan Ugalde MD Mucus Strands NOT REPORTED Normal NONE [facility] Comment on above: Performed By: #### U PRATIBHA Phipps #### [facility] [address] [place] [address] Civil Division Commander Deputy Sheriff: Brandan Ugalde MD Other Observations NOT REPORTED Normal [facility] Comment on above: Performed By: #### U PRATIBHA Phipps #### [facility] [address] [place] [address] Civil Division Commander Deputy Sheriff: Brandan Ugalde MD Trichomonas NOT REPORTED Normal NONE [facility] Comment on above: Performed By: #### U PRATIBHA Phipps #### [address] [address] Civil Division Commander Deputy Sheriff: Brandan Ugalde MD Venous Blood Gaseson 022 Body Temp. 37.0 Normal [facility] Comment on above: Performed By: #### V BG #### [address] [address] Civil Division Commander Deputy Sheriff: Brandan Ugalde MD Carboxy Hgb 2.2 % Normal 0-5 [facility] Comment on above: Result Comment: Reference Range: Non-Smokers 0-2% Average Smoker 2-4% Heavy Smoker <10% Performed By: #### V BG #### [address] [address] Civil Division Commander Deputy Sheriff: Brandan Ugalde MD FIO2 UNKNOWN Normal [facility] Comment on above: Performed By: #### V BG #### [address] [address] Civil Division Commander Deputy Sheriff: Brandan Ugalde MD HCO3 (Bld) [Moles/Vol] 17.3 mmol/L Low 24-30 [facility] Comment on above: Performed By: #### V BG #### [address] [address] Civil Division Commander Deputy Sheriff: Brandan Ugalde MD Negative Base Excess 8.2 mmol/L High 0.0-2.0 [facility] Comment on above: Performed By: #### V BG #### [address] [address] Civil Division Commander Deputy Sheriff: Brandan Ugalde MD Oxygen (Bld) [Partial pressure] 34.0 mm[Hg] Normal 30-50 [facility] Comment on above: Performed By: #### V BG #### [address] [address] Civil Division Commander Deputy Sheriff: Brandan Ugalde MD Oxygen saturation in Blood 80.7 % Normal 60.0-85.0 [facility] Comment on above: Performed By: #### V BG #### [address] [address] Civil Division Commander Deputy Sheriff: Brandan Ugalde MD pCO2 37.0 Low 39-55 [facility] Comment on above: Performed By: #### V BG #### [address] [address] Civil Division Commander Deputy Sheriff: Brandan Ugalde MD pH (Bld) 7.290 [pH] Low 7.320-7.420 [facility] Comment on above: Performed By: #### V BG #### [address] [address] Civil Division Commander Deputy Sheriff: Brandan Ugalde MD Bibi Test NOT REPORTED Normal [facility] Comment on above: Performed By: #### V BG #### [address] [address] Civil Division Commander Deputy Sheriff: Brandan Ugalde MD Methemoglobin NOT REPORTED Normal 0.0-1.5 [facility] Comment on above: Performed By: #### V BG #### [address] [address] Civil Division Commander Deputy Sheriff: Brandan Ugalde MD Mode NOT REPORTED Normal [facility] Comment on above: Performed By: #### V BG #### [address] [address] Civil Division Commander Deputy Sheriff: Brandan Ugalde MD Notification Time NOT REPORTED Normal [facility] Comment on above: Performed By: #### V BG #### [address] [address] Civil Division Commander Deputy Sheriff: Brandan Ugalde MD Notification: NOT REPORTED Normal [facility] Comment on above: Performed By: #### V BG #### [address] [address] Civil Division Commander Deputy Sheriff: Brandan Ugalde MD O2 Device/Flow/% NOT REPORTED Normal [facility] Comment on above: Performed By: #### V BG #### [address] [address] Civil Division Commander Deputy Sheriff: Brandan Ugalde MD Oxyhemoglobin NOT REPORTED Normal 95.0-98.0 [facility] Comment on above: Performed By: #### V BG #### [address] [address] Civil Division Commander Deputy Sheriff: Brandan Ugalde MD Pco2 Adj'd for Temp. NOT REPORTED Normal 39-55 [facility] Comment on above: Performed By: #### V BG #### [address] [address] Civil Division Commander Deputy Sheriff: Brandan Ugalde MD PEEP/CPAP NOT REPORTED Normal [facility] Comment on above: Performed By: #### V BG #### [facility] [address] [place] [address] Civil Division Commander Deputy Sheriff: Brandan Ugalde MD pH Adjst'd for Temp. NOT REPORTED Normal 7.320-7.[address] [facility] Comment on above: Performed By: #### V BG #### [address] [address] Civil Division Commander Deputy Sheriff: Brandan Uaglde MD pO2 Adj'd for Temp. NOT REPORTED Normal 30-50 [facility] Comment on above: Performed By: #### V BG #### [address] [address] Civil Division Commander Deputy Sheriff: Brandan Ugalde MD Positive Base Excess NOT REPORTED Normal 0.0-2.0 [facility] Comment on above: Performed By: #### V BG #### [address] [address] Civil Division Commander Deputy Sheriff: Brandan Ugalde MD PSV NOT REPORTED Normal [facility] Comment on above: Performed By: #### V BG #### [address] [address] Civil Division Commander Deputy Sheriff: Brandan Ugalde MD Pt. Position NOT REPORTED Normal [facility] Comment on above: Performed By: #### V BG #### [address] [address] Civil Division Commander Deputy Sheriff: Brandan Ugalde MD Respiratory Rate NOT REPORTED Normal [facility] Comment on above: Performed By: #### V BG #### [address] [address] Civil Division Commander Deputy Sheriff: Brandan Ugalde MD Set Rate NOT REPORTED Normal [facility] Comment on above: Performed By: #### V BG #### [address] [address] Civil Division Commander Deputy Sheriff: Brandan Ugalde MD Site Drawn NOT REPORTED Normal [facility] Comment on above: Performed By: #### V BG #### [facility] [address] [place] [address] Civil Division Commander Deputy Sheriff: Brandan Ugalde MD Text for Respiratory NOT REPORTED Normal [facility] Comment on above: Performed By: #### V BG #### [facility] [address] [place] [address] Civil Division Commander Deputy Sheriff: Brandan Ugalde MD Total Hb NOT REPORTED Normal 12.0-16.0 [facility] Comment on above: Performed By: #### V BG #### [facility] [address] [place] [address] Civil Division Commander Deputy Sheriff: Brandan Ugalde MD Total Rate NOT REPORTED Normal [facility] Comment on above: Performed By: #### V BG #### [address] [address] Civil Division Commander Deputy Sheriff: Brandan Ugalde MD VT NOT REPORTED Normal [facility] Comment on above: Performed By: #### V BG #### [address] [address] Civil Division Commander Deputy Sheriff: Brandan Ugalde MD XR CHEST PORTABLEon 09-28-19 [...] Perla Sommer MD 09/28/21 Final result Normal [facility] Bilateral scattered pulmonary opacities consistent with multifocal airspace disease/pneumonia. No extrapleural air. PN RIS CONSOLIDATED EXAMINATION: ONE XRAY VIEW OF [...] with multifocal airspace disease/pneumonia. No extrapleural air. Correlor Phone: Radiology Study observation (narrative) [facility] Phone: XR CHEST PORTABLEOrdered By: Perla Sommer on 09-28-2021 [facility] Phone: ANKLE LEFT MIN 3 VIEWS Mon 0 05-23-2021 ANKLE LEFT MIN 3 VIEWS M Patient Name: CARISSA SANTOS Patient Patient : 1980 Examination: ANKLE LEFT [...] Mt Ho MD On: 05/23/2021 1:42 PM Normal [facility] Consent for Treatmenton 06-0 Consent for Treatment [id number] Normal [facility] ED Clinical Summaryon 2020 ED Clinical Summary [place] [id number] ED Clinical Summary Person Information Name: CARISSA SANTOS/[facility] Age: 40 Years : 1980 Sex: Female Language: [place] PCP: DIAZ DALTON MD Marital Status: Visit Id: Visit Reason: [...] 02:47:40 02/06/2021 02:47:40 02/06/2021 02:47:40 ADDRESS: [place] [phone] PHYS DOC NOTES: MEDICAL INFORMATION: Prescriptions Given: PATIENT EDUCATION INFORMATION: Instructions: Follow up: DIAGNOSIS: Normal [facility] ED Patient Education Noteon 02-06-2021 ED Patient Education Note Normal [facility] ED Patient Summaryon 021 ED Patient Summary [place] [id number] Patient Discharge Instructions Person Information Name: CARISSA SANTOS Age: 40 Years Arrival Date: 02/05/2021 22:28:14 Discharge Diagnosis: Primary Care Physician: DIAZ DALTON MD Provider Information Primary Provider: Loco Marcos MD Advanced Manager Of Financial Planning:None The exam and treatment you received in the Emergency Department were for an urgent problem and are not intended as complete care. It is important that you follow up with a doctor, nurse practitioner, or physician?s assistant golf course superintendent for ongoing care. If your symptoms become worse or you do not improve as expected and you are unable to reach your usual health care provider, you should return to the Emergency Department. We are available 24 hours a day. CARISSA SANTOS has been given the following list of [...] opioids can be used to help relieve frhpeset-zp-qvaofh pain and are often prescribed following a [...] guidance from the Food and Drug Administration (www.fda.gov/Drugs /ResourcesForYou). ? Visit www.cdc.gov/drugov erdose to learn about the risks of opioids abuse and overdose. ? If you believe you may be struggling with addiction, tell your health healthcare facility administrator and ask for guidance or call [facility]?S National Helpline at 1-180-283-QPDT. m Source: [place] Department of Health and Human Services/Center for Disease Control & Prevention [facility] Medications Given: Medication Dose Route No medications found. Medication Inf (more content not included)... Normal [facility] CHEST AND LATERALon 02-05-[address] [facility] Department of Radiology [address] [place] [id number] == Patient Name: CARISSA SANTOS : 1980 Sex: F Age: Race: White Pt. Location: Patient Status: O Ordered Date: 02/04/2021 9:40:00 AM Completed Date: 02/04/2021 09:42 AM Requesting Provider: ALIYA RUIZ Attending Provider: ALIYA RUIZ Report Copy To: Signs & Symptoms: R22.32 Localized swelling, mass and lump, left upper limb I10 History: Keri Comments: ap/lat Exam: CHEST AND LATERAL == CLINICAL INFORMATION: R22.32 Localized swelling, mass and lump, left upper limb I10 COMPARISON: None. VIEWS: 2. IMPRESSION: 1. No airspace opacifications. No effusion. 2. Rounded nodule in the right midlung measuring 1.[address] chest. 3. Normal cardiomediastinal silhouette. 4. Degenerative changes of the thoracic spine. Electronically signed: Shama Calvin. Transcribed by: [email or web address], User Resident: Electronically Signed by: SHAMA CALVIN @ 02/04/2021 02:[address] [facility] Comment on above: Order Comment: ap/la t HUMERUS LEFTon 02-04-[address] [facility] Department of Radiology [address] [place] [phone] == Patient Name: CARISSA SANTOS : 1980 Sex: F Age: Race: White Pt. Location: 84 Patient Status: Ordered Date: 02/04/2021 8:55:00 AM Completed Date: 02/04/2021 09:20 AM Requesting Provider: ALIYA RUIZ Attending Provider: Report Copy To: Signs & Symptoms: R22.32 Localized swelling, mass and lump, left upper limb I10 History: [place] Comments: Evaluate Exam: HUMERUS LEFT == HUMERUS LEFT CLINICAL INFORMATION: Patient complains of left shoulder and humerus pain and swelling for three years COMPARISON: None. IMPRESSION: 1. No fracture or other acute osseous abnormalities identified. No abnormal sclerosis. Electronically signed: Shama Calvin. Transcribed by: [email or web address], User Resident: Electronically Signed by: SHAMA MARIXA @ 02/04/2021 01:[address] [facility] Comment on above: Order Comment: Evalu ate SHOULDER LEFTon 02-04-[address] [facility] Department of Radiology [address] [place] [phone] == Patient Name: CARISSA SANTOS : 1980 Sex: F Age: Race: White Pt. Location: Patient Status: Ordered Date: 02/04/2021 8:55:00 AM Completed Date: 02/04/2021 09:20 AM Requesting Provider: ALIYA RUIZ Attending Provider: Report Copy To: Signs & Symptoms: R22.32 Localized swelling, mass and lump, left upper limb I10 History: [place]eri Comments: Evaluate Exam: SHOULDER LEFT == SHOULDER LEFT CLINICAL INFORMATION: Patient complains of left shoulder and humerus pain and swelling for three years COMPARISON: None. IMPRESSION: 1. No fracture. No dislocation. The alignment of the glenohumeral joint is normal. There are no significant acromioclavicular or glenohumeral degenerative changes. No osteophytic spurring or abnormal sclerosis. Electronically signed: Shama Calvin. Transcribed by: [email or web address], User Resident: Electronically Signed by: SHAMA CALVIN @ 02/04/2021 01:[address] [facility] Comment on above: Order Comment: Evalu ate Vital Signs Date Time Vital Sign Value Performing Clinician Facility 04-14-2025 13:38-0400 Body mass index (BMI) [Ratio] 39.07 kg/m2 Feliz Demar DO Work Phone: [facility] 04-14-2025 13:38-0400 Body weight 93.78 kg Feliz Demar DO Work Phone: [facility] 04-14-2025 13:38-0400 Diastolic blood pressure 90 mm[Hg] Feliz Demar DO Work Phone: [facility] 04-14-2025 13:38-0400 Systolic blood pressure 122 mm[Hg] Feliz Demar DO Work Phone: [facility] 03-17-2025 13:48-0400 Body mass index (BMI) [Ratio] 40.25 kg/m2 Feliz Demar DO Work Phone: [facility] 03-17-2025 13:48-0400 Body weight 96.62 kg Feliz Demar DO Work Phone: [facility] 03-17-2025 13:48-0400 Diastolic blood pressure 70 mm[Hg] Feliz Demar DO Work Phone: [facility] 03-17-2025 13:48-0400 Systolic blood pressure 120 mm[Hg] Feliz Demar DO Work Phone: [facility] 03-13-2025 09:01-0400 Body height 154.9 cm Lindsay Arrieta DO Work Phone: [facility] 03-13-2025 09:01-0400 Body mass index (BMI) [Ratio] 40.43 kg/m2 Lindsay Arrieta DO Work Phone: [facility] 03-13-2025 09:01-0400 Body weight 97.07 kg Lindsay Arrieta DO Work Phone: [facility] 03-13-2025 09:01-0400 Diastolic blood pressure 77 mm[Hg] Lindsay Arrieta DO Work Phone: [facility] 03-13-2025 09:01-0400 Heart rate 81 /min Lindsay Arrieta DO Work Phone: [facility] 03-13-2025 09:01-0400 SaO2% (BldA) [Mass fraction] 100 % Lindsay Arrieta DO Work Phone: [facility] Comment on above: 3 liters 03-13-2025 09:01-0400 Systolic blood pressure 131 mm[Hg] Lindsay Arrieta DO Work Phone: [facility] 02-10-2025 13:23-0400 Body height 154.9 cm Diaz Dalton MD Work Phone: [facility] 02-10-2025 13:23-0400 Body mass index (BMI) [Ratio] 40.25 kg/m2 Diaz Dalton MD Work Phone: [facility] 02-10-2025 13:23-0400 Body temperature 97.3 [degF] Diaz Dalton MD Work Phone: [facility] 02-10-2025 13:23-0400 Body weight 96.62 kg Diaz Dalton MD Work Phone: [facility] 02-10-2025 13:23-0400 Diastolic blood pressure 78 mm[Hg] Diaz Dalton MD Work Phone: [facility] 02-10-2025 13:23-0400 Heart rate 85 /min Diaz Dalton MD Work Phone: [facility] 02-10-2025 13:23-0400 Respiratory rate 20 /min Diaz Dalton MD Work Phone: [facility] 02-10-2025 13:23-0400 SaO2% (BldA) [Mass fraction] 98 % Diaz Dalton MD Work Phone: [facility] 02-10-2025 13:23-0400 Systolic blood pressure 142 mm[Hg] Diaz Dalton MD Work Phone: [facility] 01-03-2025 08:08-0400 Body height 154.9 cm Katelyn Recio MD Work Phone: [facility] 01-03-2025 08:08-0400 Body mass index (BMI) [Ratio] 41.38 kg/m2 Katelyn Recio MD Work Phone: [facility] 01-03-2025 08:08-0400 Body weight 99.34 kg Katelyn Recio MD Work Phone: [facility] 01-03-2025 08:08-0400 Diastolic blood pressure 78 mm[Hg] Katelyn Recio MD Work Phone: [facility] 01-03-2025 08:08-0400 Heart rate 76 /min Katelyn Recio MD Work Phone: [facility] 01-03-2025 08:08-0400 SaO2% (BldA) [Mass fraction] 100 % Katelyn Recio MD Work Phone: [facility] 01-03-2025 08:08-0400 Systolic blood pressure 116 mm[Hg] Katelyn Recio MD Work Phone: [facility] 12-04-2024 13:04-0400 Body height 154.9 cm Pacheco Madrigal APRN-PACKER INSPECTOR Work Phone: [facility] 12-04-2024 13:04-0400 Body mass index (BMI) [Ratio] 40 kg/m2 Pacheco Madrigal APRN-PACKER INSPECTOR Work Phone: [facility] 12-04-2024 13:04-0400 Body weight 96.03 kg Pacheco Madrigal APRN-PACKER INSPECTOR Work Phone: [facility] 12-04-2024 13:04-0400 Diastolic blood pressure 64 mm[Hg] Pacheco Madrigal CATTLE DIPPER-PACKER INSPECTOR Work Phone: [facility] 12-04-2024 13:04-0400 Heart rate 87 /min Pacheco Madrigal CATTLE DIPPER-PACKER INSPECTOR Work Phone: [facility] 12-04-2024 13:04-0400 SaO2% (BldA) [Mass fraction] 98 % Pacheco Madrigal CATTLE DIPPER-PACKER INSPECTOR Work Phone: [facility] Comment on above: Arrived on 3Lnc of O2 12-04-2024 13:04-0400 Systolic blood pressure 99 mm[Hg] Pacheco Madrigal CATTLE DIPPER-PACKER INSPECTOR Work Phone: [facility] 11-07-2024 09:57-0500 Body mass index (BMI) [Ratio] 41.57 kg/m2 Diaz Dalton MD Work Phone: [facility] 11-07-2024 09:57-0500 Body temperature 97.7 [degF] Diaz Dalton MD Work Phone: [facility] 11-07-2024 09:57-0500 Body weight 99.79 kg Diaz Dalton MD Work Phone: [facility] 11-07-2024 09:57-0500 Diastolic blood pressure 62 mm[Hg] Diaz Dalton MD Work Phone: [facility] 11-07-2024 09:57-0500 Heart rate 85 /min Diaz Dalton MD Work Phone: [facility] 11-07-2024 09:57-0500 SaO2% (BldA) [Mass fraction] 95 % Diaz Dalton MD Work Phone: [facility] 11-07-2024 09:57-0500 Systolic blood pressure 100 mm[Hg] Diaz Dalton MD Work Phone: [facility] 10-28-2024 14:08-0500 Body mass index (BMI) [Ratio] 41 kg/m2 Diaz Dalton MD Work Phone: [facility] 10-28-2024 14:08-0500 Body temperature 97.81 [degF] Diaz Dalton MD Work Phone: [facility] 10-28-2024 14:08-0500 Body weight 98.43 kg Diaz Dalton MD Work Phone: [facility] 10-28-2024 14:08-0500 Diastolic blood pressure 60 mm[Hg] Diaz Dalton MD Work Phone: [facility] 10-28-2024 14:08-0500 Heart rate 96 /min Diaz Dalton MD Work Phone: [facility] 10-28-2024 14:08-0500 SaO2% (BldA) [Mass fraction] 96 % Diaz Dalton MD Work Phone: [facility] 10-28-2024 14:08-0500 Systolic blood pressure 100 mm[Hg] Diaz Dalton MD Work Phone: [facility] 10-09-2024 13:23-0500 Body height 154.9 cm Carmen Bowman DPM Work Phone: [facility] 10-09-2024 13:23-0500 Body mass index (BMI) [Ratio] 42.89 kg/m2 Carmen MASONM Work Phone: [facility] 10-09-2024 13:23-0500 Body weight 102.97 kg Carmen Bowman DPM Work Phone: [facility] 10-07-2024 07:57-0500 Body height 154.9 cm Katelyn Recio MD Work Phone: [facility] 10-07-2024 07:57-0500 Body mass index (BMI) [Ratio] 41.76 kg/m2 Katelyn Recio MD Work Phone: [facility] 10-07-2024 07:57-0500 Body weight 100.25 kg Katelyn Recio MD Work Phone: [facility] 10-07-2024 07:57-0500 Diastolic blood pressure 70 mm[Hg] Katelyn Recio MD Work Phone: [facility] 10-07-2024 07:57-0500 Heart rate 97 /min Katelyn Recio MD Work Phone: [facility] 10-07-2024 07:57-0500 SaO2% (BldA) [Mass fraction] 97 % Katelyn Recio MD Work Phone: [facility] 10-07-2024 07:57-0500 Systolic blood pressure 102 mm[Hg] Katelyn Recio MD Work Phone: [facility] 09-05-2024 11:26-0500 Body height 154.9 cm Pmh 1 [facility] 09-05-2024 11:26-0500 Body mass index (BMI) [Ratio] 41.38 kg/m2 Pmh 1 [facility] 09-05-2024 11:26-0500 Body weight 99.34 kg Pmh 1 [facility] 08-06-2024 20:01-0500 Body height 154.9 cm Pmh 2 [facility] 08-06-2024 20:01-0500 Body mass index (BMI) [Ratio] 44.97 kg/m2 Pmh 2 [facility] 08-06-2024 20:01-0500 Body weight 107.96 kg Pmh 2 [facility] 08-06-2024 11:33-0500 Body height 154.9 cm Diaz Dalton MD Work Phone: [facility] 08-06-2024 11:33-0500 Body mass index (BMI) [Ratio] 42.89 kg/m2 Diaz Dalton MD Work Phone: [facility] 08-06-2024 11:33-0500 Body temperature 97.11 [degF] Diaz Dalton MD Work Phone: [facility] 08-06-2024 11:33-0500 Body weight 102.97 kg Diaz Dalton MD Work Phone: [facility] 08-06-2024 11:33-0500 Diastolic blood pressure 90 mm[Hg] Diaz Dalton MD Work Phone: [facility] 08-06-2024 11:33-0500 Heart rate 102 /min Diaz Dalton MD Work Phone: [facility] 08-06-2024 11:33-0500 Respiratory rate 22 /min Diaz Dalton MD Work Phone: [facility] 08-06-2024 11:33-0500 SaO2% (BldA) [Mass fraction] 98 % Diaz Dalton MD Work Phone: [facility] 08-06-2024 11:33-0500 Systolic blood pressure 142 mm[Hg] Diaz Dalton MD Work Phone: [facility] 07-18-2024 11:06-0500 Body height 154.9 cm Hair See MD Work Phone: [facility] 07-18-2024 11:06-0500 Body mass index (BMI) [Ratio] 44.18 kg/m2 Hair See MD Work Phone: [facility] 07-18-2024 11:06-0500 Body weight 106.05 kg Hair See MD Work Phone: [facility] 07-18-2024 11:06-0500 Diastolic blood pressure 94 mm[Hg] Hair See MD Work Phone: [facility] 07-18-2024 11:06-0500 Heart rate 90 /min Hair See MD Work Phone: [facility] 07-18-2024 11:06-0500 SaO2% (BldA) [Mass fraction] 99 % Hair See MD Work Phone: [facility] 07-18-2024 11:06-0500 Systolic blood pressure 128 mm[Hg] Hair See MD Work Phone: [facility] 07-04-2024 09:10-0400 Diastolic blood pressure 84 mm[Hg] [facility] Nurse [facility] 07-04-2024 09:10-0400 Heart rate 90 /min [facility] Nurse [facility] 07-04-2024 09:10-0400 Systolic blood pressure 148 mm[Hg] [facility] Nurse [facility] 06-13-2024 12:59-0400 Body height 154.9 cm Lindsay Arrieta DO Work Phone: [facility] 06-13-2024 12:59-0400 Body mass index (BMI) [Ratio] 43.42 kg/m2 Lindsay Arrieta DO Work Phone: [facility] 06-13-2024 12:59-0400 Body weight 104.24 kg Lindsay Arrieta DO Work Phone: [facility] 06-13-2024 12:59-0400 Diastolic blood pressure 73 mm[Hg] Lindsay Arrieta DO Work Phone: [facility] 06-13-2024 12:59-0400 Heart rate 93 /min Lindsay Arrieta DO Work Phone: [facility] 06-13-2024 12:59-0400 SaO2% (BldA) [Mass fraction] 100 % Lindsay Arrieta DO Work Phone: [facility] Comment on above: Arrived on 3Lnc of O2 06-13-2024 12:59-0400 Systolic blood pressure 136 mm[Hg] Lindsay Arrieta DO Work Phone: [facility] 05-30-2024 14:16-0400 Body height 154.9 cm Arianna Miller DO Work Phone: [facility] 05-30-2024 14:16-0400 Body mass index (BMI) [Ratio] 41.38 kg/m2 Arianna Miller DO Work Phone: [facility] 05-30-2024 14:16-0400 Body weight 99.34 kg Arianna Miller DO Work Phone: [facility] 05-29-2024 09:57-0400 Body height 154.9 cm Diaz Dalton MD Work Phone: [facility] 05-29-2024 09:57-0400 Body mass index (BMI) [Ratio] 41.38 kg/m2 Diaz Dalton MD Work Phone: [facility] 05-29-2024 09:57-0400 Body temperature 97.5 [degF] Diaz Dalton MD Work Phone: [facility] 05-29-2024 09:57-0400 Body weight 99.34 kg Diaz Dalton MD Work Phone: [facility] 05-29-2024 09:57-0400 Diastolic blood pressure 76 mm[Hg] Diaz Dalton MD Work Phone: [facility] 05-29-2024 09:57-0400 Heart rate 90 /min Diaz Dalton MD Work Phone: [facility] 05-29-2024 09:57-0400 Respiratory rate 20 /min Diaz Dalton MD Work Phone: [facility] 05-29-2024 09:57-0400 SaO2% (BldA) [Mass fraction] 99 % Diaz Dalton MD Work Phone: [facility] 05-29-2024 09:57-0400 Systolic blood pressure 128 mm[Hg] iDaz Dalton MD Work Phone: [facility] 05-13-2024 14:07-0400 Body height 154.9 cm Diaz Dalton MD Work Phone: [facility] 05-13-2024 14:07-0400 Body mass index (BMI) [Ratio] 42.32 kg/m2 Diaz Dalton MD Work Phone: [facility] 05-13-2024 14:07-0400 Body temperature 97.3 [degF] Diaz Dalton MD Work Phone: [facility] 05-13-2024 14:07-0400 Body weight 101.61 kg Diaz Dalton MD Work Phone: [facility] 05-13-2024 14:07-0400 Diastolic blood pressure 70 mm[Hg] Diaz Dalton MD Work Phone: [facility] 05-13-2024 14:07-0400 Heart rate 102 /min Diaz Dalton MD Work Phone: [facility] 05-13-2024 14:07-0400 Respiratory rate 20 /min Diaz Dalton MD Work Phone: [facility] 05-13-2024 14:07-0400 SaO2% (BldA) [Mass fraction] 98 % Diaz Dalton MD Work Phone: [facility] 05-13-2024 14:07-0400 Systolic blood pressure 164 mm[Hg] Diaz Dalton MD Work Phone: [facility] 04-24-2024 13:42-0400 Body mass index (BMI) [Ratio] 42.7 kg/m2 Feliz Demar DO Work Phone: [facility] 04-24-2024 13:42-0400 Body weight 102.51 kg Feliz Demar DO Work Phone: [facility] 04-24-2024 13:42-0400 Diastolic blood pressure 84 mm[Hg] Feliz Demar DO Work Phone: [facility] 04-24-2024 13:42-0400 Systolic blood pressure 130 mm[Hg] Feliz Demar DO Work Phone: [facility] 04-09-2024 10:51-0400 Body height 154.9 cm Smitha Germain MD Work Phone: [facility] 04-09-2024 10:51-0400 Body mass index (BMI) [Ratio] 43.58 kg/m2 Smitha Germain MD Work Phone: [facility] 04-09-2024 10:51-0400 Body weight 104.55 kg Smitha Germain MD Work Phone: [facility] 04-09-2024 10:51-0400 Diastolic blood pressure 84 mm[Hg] Smitha Germain MD Work Phone: [facility] 04-09-2024 10:51-0400 Heart rate 90 /min Smitha Germain MD Work Phone: [facility] 04-09-2024 10:51-0400 SaO2% (BldA) [Mass fraction] 100 % Smitha Germain MD Work Phone: [facility] Comment on above: Arrived on 2Lnc of O2 04-09-2024 10:51-0400 Systolic blood pressure 134 mm[Hg] Smitha Germain MD Work Phone: [facility] 02-08-2024 08:58-0400 Body height 154.9 cm Lindsay Arrieta DO Work Phone: [facility] 02-08-2024 08:58-0400 Body mass index (BMI) [Ratio] 44.11 kg/m2 Lindsay Arrieta DO Work Phone: [facility] 02-08-2024 08:58-0400 Body weight 105.82 kg Lindsay Arrieta DO Work Phone: [facility] 02-08-2024 08:58-0400 Diastolic blood pressure 87 mm[Hg] Lindsay Arrieta DO Work Phone: [facility] 02-08-2024 08:58-0400 Heart rate 80 /min Lindsay Arrieta DO Work Phone: [facility] 02-08-2024 08:58-0400 SaO2% (BldA) [Mass fraction] 98 % Lindsay Arrieta DO Work Phone: [facility] 02-08-2024 08:58-0400 Systolic blood pressure 139 mm[Hg] Lindsay Meenakshi DO Work Phone: [facility] 12-23-2023 11:37-0400 Diastolic blood pressure 85 mm[Hg] Ezequiel Graff MD Work Phone: [facility] 12-23-2023 11:37-0400 Heart rate 81 /min Ezequiel Graff MD Work Phone: [facility] 12-23-2023 11:37-0400 Respiratory rate 16 /min Ezequiel Graff MD Work Phone: [facility] 12-23-2023 11:37-0400 SaO2% (BldA) [Mass fraction] 97 % Ezequiel Graff MD Work Phone: [facility] 12-23-2023 11:37-0400 Systolic blood pressure 107 mm[Hg] Ezequiel Graff MD Work Phone: [facility] 12-23-2023 07:00-0400 Body temperature 97.9 [degF] Ezequiel Graff MD Work Phone: [facility] 12-23-2023 05:05-0400 Body mass index (BMI) [Ratio] 42.65 kg/m2 Ezequiel Graff MD Work Phone: [facility] 12-23-2023 05:05-0400 Body weight 102.33 kg Ezequiel Graff MD Work Phone: [facility] 12-20-2023 21:17-0400 Body height 154.9 cm Ezequiel Graff MD Work Phone: [facility] 11-15-2023 09:05-0400 Body height 154.9 cm [employer] [facility] 11-15-2023 09:05-0400 Body mass index (BMI) [Ratio] 41.38 kg/m2 [employer] [facility] 11-15-2023 09:05-0400 Body weight 99.34 kg [employer] [facility] 11-10-2023 11:07-0500 Body height 154.9 cm Libby Finley MD Work Phone: [facility] 11-10-2023 11:07-0500 Body mass index (BMI) [Ratio] 43.27 kg/m2 Libby Finley MD Work Phone: [facility] 11-10-2023 11:07-0500 Body weight 103.87 kg Libby Finley MD Work Phone: [facility] 11-10-2023 11:07-0500 Diastolic blood pressure 81 mm[Hg] Libby Finley MD Work Phone: [facility] 11-10-2023 11:07-0500 Heart rate 100 /min Libby Finley MD Work Phone: [facility] 11-10-2023 11:07-0500 Systolic blood pressure 122 mm[Hg] Libby Finley MD Work Phone: [facility] 11-09-2023 08:55-0500 Body mass index (BMI) [Ratio] 43.27 kg/m2 Angela Witt MD Work Phone: [facility] 11-09-2023 08:55-0500 Body temperature 97.3 [degF] Angela Witt MD Work Phone: [facility] 11-09-2023 08:55-0500 Body weight 103.87 kg Angela Witt MD Work Phone: [facility] 11-09-2023 08:55-0500 Diastolic blood pressure 81 mm[Hg] Angela Witt MD Work Phone: [facility] 11-09-2023 08:55-0500 Heart rate 103 /min Angela Witt MD Work Phone: [facility] 11-09-2023 08:55-0500 Respiratory rate 18 /min Angela Witt MD Work Phone: [facility] 11-09-2023 08:55-0500 SaO2% (BldA) [Mass fraction] 95 % Angela Witt MD Work Phone: [employer] [facility] 11-09-2023 08:55-0500 Systolic blood pressure 129 mm[Hg] [facility] 10-03-2021 11:29-0500 Body temperature 97.5 [degF] Jamal Levine MD Work Phone: [employer] 10-03-2021 11:29-0500 Diastolic blood pressure 80 mm[Hg] Jamal Levine MD Work Phone: [employer] 10-03-2021 11:29-0500 Heart rate 85 /min Jamal Levine MD Work Phone: [employer] 10-03-2021 11:29-0500 Respiratory rate 16 /min Jamal Levine MD Work Phone: [employer] 10-03-2021 11:29-0500 SaO2% (BldA) [Mass fraction] 97 % Jamal Levine MD Work Phone: [employer] 10-03-2021 11:29-0500 Systolic blood pressure 126 mm[Hg] Jamal Levine MD Work Phone: [employer] 09-29-2021 06:00-0500 Body mass index (BMI) [Ratio] 43.59 kg/m2 Jamal Levine MD Work Phone: [employer] 09-29-2021 06:00-0500 Body weight 101.24 kg Jamal Levine MD Work Phone: [employer] 09-28-2021 09:30-0500 Body height 152.4 cm Jamal Levine MD Work Phone: [employer] Encounters Encounter Date Encounter Type Care Provider Facility Start: 04-22-2025 End: 04-22-2025 Kyler Jackson DO Work Phone: [facility] Start: 04-22-2025 End: 04-22-2025 Bamboo flowsheet Jr. Harinder Lynn Stepanic DO Work Phone: [facility] Start: 04-22-2025 End: 04-22-2025 ambulatory HARINDER FUNEZ [facility]EP[facility] Not Available Start: 04-14-2025 End: 04-14-2025 Bamboo flowsheet Feliz Demar DO Work Phone: [facility] Start: 04-14-2025 End: 04-14-2025 Bamboo flowsheet Feliz Demar DO Work Phone: [facility] Start: 04-14-2025 End: 04-14-2025 Office outpatient visit 15 minutes Feliz Demar DO Work Phone: [facility] Comment on above: Pelvic pain in femal e (Primary Dx); Nausea; Genital warts Start: 04-14-2025 End: 04-14-2025 ambulatory FELIZ DEMAR Not Available Start: 04-10-2025 End: 04-11-2025 ambulatory Fabiola Boothink [employer] [facility] Comment on above: Acute pain of left k nee (Primary Dx) Start: 04-10-2025 End: 04-10-2025 Bamboo flowsheet Fabiola Brink [employer] [facility] Start: 04-10-2025 End: 04-10-2025 Bamboo flowsheet Fabiola Brink [employer] [facility] Start: 04-07-2025 End: 04-07-2025 Telephone encounter Ubaldo Mino [employer] [facility] Comment on above: Cx PT 04/07/25 Start: 04-02-2025 End: 04-02-2025 Bamboo flowsheet Fabiola Brink [employer] [facility] Start: 04-02-2025 End: 04-02-2025 Bamboo flowsheet Fabiola Brink [employer] [facility] Start: 04-02-2025 End: 04-02-2025 ambulatory Fabiola Brink [employer] [facility] Comment on above: Acute pain of left k nee (Primary Dx) Start: 03-28-2025 End: 03-28-2025 Telephone encounter Ubaldo Herzog [employer] [facility] Comment on above: re: PT so far Start: 03-27-2025 End: 04-02-2025 Telephone encounter Shama Carlson Tae PA Work Phone: [facility] Comment on above: called and said that therapy is making her pain worse Start: 03-26-2025 End: 03-26-2025 Bamboo flowsheet Ubaldo Herzog [employer] [facility] Start: 03-26-2025 End: 03-26-2025 Bamboo flowsheet Ubaldo Herzog [employer] [facility] Start: 03-26-2025 End: 03-26-2025 ambulatory Ubaldo Herzog [employer] [facility] Comment on above: Acute pain of left k nee (Primary Dx) Start: 03-24-2025 End: 03-24-2025 Refill Silvia Otero [facility] Start: 03-21-2025 End: 03-21-2025 Bamboo flowsheet Shakila Valadez PT [facility] Start: 03-21-2025 End: 03-21-2025 Bamboo flowsheet Shakila Valadez PT [facility] Start: 03-21-2025 End: 03-21-2025 ambulatory Shakila Valadez PT [facility] Comment on above: Acute pain of left k nee (Primary Dx) Start: 03-17-2025 End: 03-17-2025 Patient encounter procedure Feliz Demar DO Work Phone: [facility] Comment on above: Genital warts Start: 03-17-2025 End: 03-17-2025 ambulatory FELIZ DEMAR Not Available Start: 03-14-2025 End: 03-14-2025 Bamboo flowsloreta Lynn Stepanic DO Work Phone: [facility] Start: 03-14-2025 End: 03-14-2025 Bamboo flowsheet Jr. Harinder Lynn Stepanic DO Work Phone: [facility] Start: 03-14-2025 End: 03-14-2025 Office outpatient visit 15 minutes Jr. Harinder Jackson DO Work Phone: [facility] Comment on above: Acute medial meniscu s tear of left knee, initial encounter (Primary Dx); Acute pain of left knee Start: 03-14-2025 End: 03-14-2025 ambulatory JR., HARINDER Lynn STEPKRYSTYNA Not Available Start: 03-13-2025 End: 03-13-2025 [facility] Start: 03-13-2025 End: 03-13-2025 Office outpatient visit 25 minutes [facility] DO Work Phone: [facility] Comment on above: Moderate persistent asthma without complication (Primary Dx); Chronic hypoxic respiratory failure ([facility]) Start: 03-13-2025 End: 03-13-2025 ambulatory [facility] Start: 03-11-2025 End: 03-11-2025 Telephone encounter [facility] Work Phone: [facility] Start: 03-05-2025 End: 03-05-2025 Telephone encounter Jorge L Givens RN [facility] Comment on above: PPMM referral Start: 03-04-2025 End: 03-04-2025 Clinisync Result Encounter Shama KAPLAN Work Phone: [facility] External Department Unsolicited Start: 03-04-2025 End: 03-04-2025 Clinisync Result Encounter Shama KAPLAN Work Phone: [facility] External [facility] Unsolicited Start: 02-27-2025 End: 03-12-2025 Telephone encounter Shama KAPLAN Work Phone: [facility] Comment on above: in pain Start: 02-25-2025 End: 02-25-2025 Office outpatient visit 15 minutes Shama KAPLAN Work Phone: [facility] Comment on above: Internal derangement of left knee (Primary Dx); Acute pain of left knee Start: 02-25-2025 End: 02-25-2025 Bamboo flowsheet Shama Medina PA Work Phone: [facility] Start: 02-25-2025 End: 02-25-2025 Bamboo flowsheet Shama Medina PA Work Phone: [facility] Start: 02-25-2025 End: 02-26-2025 Telephone [facility] Start: 02-25-2025 End: 02-25-2025 ambulatory SHAMA MEDINA Not Available Start: 02-17-2025 End: 02-17-2025 Telephone encounter [facility] Start: 02-10-2025 End: 02-10-2025 Bamboo flowsheet Diaz Dalton MD Work Phone: [facility] Start: 02-10-2025 End: 02-10-2025 Bamboo flowsheet Diaz Dalton MD Work Phone: [facility] Start: 02-10-2025 End: 02-10-2025 ambulatory DIAZ DALTON Not Available Start: 02-10-2025 End: 02-10-2025 Office outpatient visit 25 minutes Diaz Dalton MD Work Phone: [facility] Comment on above: Type 2 diabetes sanjana itus with hyperglycemia, with long-term current use of insulin (CMS/HCC) (Primary Dx); Benign essential hypertension (CMS/HCC); Mild episode of recurrent major depressive disorder (HCC) (CMS/HCC); JOHN (generalized anxiety disorder) (CMS/HCC); Chronic heart failure with preserved ejection fraction (HFpEF) (CMS/HCC); Type 2 diabetes mellitus with microalbuminuria, with long-term current use of insulin (CMS/HCC); Class 3 severe obesity due to excess calories with serious comorbidity and body mass index (BMI) of 40.0 to 44.9 in adult; Encounter for long-term (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 medications; Dyslipidemia (CMS/HCC); Primary osteoarthritis of both knees Start: 02-03-2025 End: 02-03-2025 ambulatory [facility] Start: 01-03-2025 End: 01-03-2025 Office outpatient visit 15 minutes Katelyn Recio MD Work Phone: [facility] Comment on above: Chronic heart failur e with preserved ejection fraction ([facility]) (Primary Dx); Primary hypertension; Dyspnea on exertion; Hyperlipidemia associated with type 2 diabetes mellitus ([facility]) Start: 01-03-2025 End: 01-03-2025 ambulatory [facility] Start: 01-02-2025 End: 01-02-2025 Telephone encounter Bethanie Patricia [facility] Start: 12-09-2024 End: 12-09-2024 Telephone encounter Silvia Otero [facility] Start: 12-04-2024 End: 12-04-2024 Office outpatient visit 25 minutes P[facility] [employer] Work Phone: [facility] Comment on above: Obstructive sleep ap diana syndrome (Primary Dx); Noncompliance with CPAP treatment; Chronic hypoxic respiratory failure, on home oxygen therapy ([facility]); Obesity, Class III, BMI 40-49.9 (morbid obesity) ([facility]) Start: 12-04-2024 End: 12-04-2024 [facility] Start: 11-07-2024 End: 11-07-2024 Bamboo flowsheet Diaz Dalton MD Work Phone: [facility] Start: 11-07-2024 End: 11-07-2024 Bamboo flowsheet Diaz Dalton MD Work Phone: [facility] Start: 11-07-2024 End: 11-07-2024 Office outpatient visit 25 minutes Diaz Dalton MD Work Phone: [facility] Comment on above: Type 2 diabetes sanjana itus with hyperglycemia, with long-term current use of insulin ([facility]/HCC) (Primary Dx); Chronic heart failure with preserved ejection fraction (HFpEF) ([facility]/HCC); Mild episode of recurrent major depressive disorder (HCC) ([facility]); JOHN (generalized anxiety disorder) ([facility]); Gastroesophageal reflux disease without esophagitis; Class 3 severe obesity due to excess calories with serious comorbidity and body mass index (BMI) of 40.0 to 44.9 in adult ([facility]) Start: 11-07-2024 End: 11-07-2024 ambulatory DIAZ DALTON Not Available Start: 11-01-2024 End: 11-01-2024 External Result Encounter Diaz Dalton MD Work Phone: [facility] External Department Unsolicited Start: 11-01-2024 End: 11-01-2024 External Result Encounter Diaz Dalton MD Work Phone: [facility] External Department Unsolicited Start: 11-01-2024 End: 11-01-2024 ambulatory [facility] Start: 10-28-2024 End: 10-28-2024 Office outpatient visit 25 minutes Diaz Dalton MD Work Phone: [facility] Comment on above: Dehydration (Primary Dx); Nausea and vomiting, unspecified vomiting type; Type 2 diabetes mellitus with hyperglycemia, with long-term current use of insulin ([facility]); Class 3 severe obesity due to excess calories with serious comorbidity and body mass index (BMI) of 40.0 to 44.9 in adult ([facility]); Chronic hypoxic respiratory failure ([facility]); Chronic heart failure with preserved ejection fraction (HFpEF) ([facility]) Start: 10-28-2024 End: 10-28-2024 Bamboo flowsheet Diaz Dalton MD Work Phone: [facility] Start: 10-28-2024 End: 10-28-2024 Bamboo flowsheet Diaz Dalton MD Work Phone: [facility] Start: 10-28-2024 End: 10-28-2024 ambulatory DIAZ DALTON Not Available Start: 10-27-2024 End: 10-27-2024 Emergency department patient visit [facility] Start: 10-09-2024 End: 10-09-2024 Bamboo flowsheet Carmen S Mike DPM Work Phone: [facility] Start: 10-09-2024 End: 10-09-2024 Bamboo flowsheet Carmen Bowman DPM Work Phone: [facility] Start: 10-09-2024 End: 10-09-2024 ambulatory CARMEN Cyr BASIA Not Available Start: 10-09-2024 End: 10-09-2024 Office outpatient visit 25 minutes Carmen S Mike DPM Work Phone: [facility] Comment on above: Diabetic polyneuropa thy associated with type 2 diabetes mellitus ([facility]) (Primary Dx); Neuritis Start: 10-07-2024 End: 10-07-2024 Office outpatient visit 25 minutes [facility]atelyn Recio [facility] Comment on above: Dyspnea on exertion (Primary Dx); Chronic heart failure with preserved ejection fraction ([facility]); Type 2 diabetes mellitus with hyperglycemia, with long-term current use of insulin ([facility]) Start: 10-07-2024 End: 10-07-2024 ambulatory DIAZ DALTON [facility] Start: 10-04-2024 End: 10-04-2024 Telephone encounter Sue Chow [facility] Start: 09-25-2024 End: 09-25-2024 Refill Diaz Dalton MD Work Phone: [facility] Comment on above: Type 2 diabetes sanjana itus with hyperglycemia, with long-term current use of insulin ([facility]) Start: 09-23-2024 End: 09-23-2024 Refill Diaz Dalton MD Work Phone: [facility] Comment on above: Type 2 diabetes sanjana itus with microalbuminuria, with long-term current use of insulin ([facility]) Start: 09-19-2024 End: 09-19-2024 Refill Diaz Dalton MD Work Phone: [facility] Comment on above: Type 2 diabetes sanjana itus with microalbuminuria, with long-term current use of insulin (CMS/HCC) Start: 09-17-2024 End: 09-17-2024 Telephone encounter Allyson Briscoe [facility] General [facility] Start: 09-12-2024 End: 09-12-2024 Evaluation and management of inpatient DIAZ DALTON [facility] Start: 09-05-2024 End: 09-05-2024 ambulatory [facility] Pat Phone Call Provider 1 [facility] - Pre Admit Start: 09-05-2024 End: 09-05-2024 ambulatory DIAZ DALTON [facility] Start: 08-21-2024 End: 08-22-2024 Refill Diaz Dalton MD Work Phone: [facility] Comment on above: Mild episode of recu rrent major depressive disorder (HCC) (CMS/HCC) Start: 08-15-2024 End: 08-15-2024 Orders Only Diaz Dalton MD Work Phone: [facility] Comment on above: Carpal tunnel syndro me of left wrist Start: 08-06-2024 End: 08-06-2024 Bamboo flowsheet Diaz Dalton MD Work Phone: [facility] Start: 08-06-2024 End: 08-12-2024 Bamboo flowsheet Diaz Dalton MD Work Phone: [facility] Start: 08-06-2024 End: 08-12-2024 Clinisync Result Encounter Generic External Data Provider [facility] External Department Unsolicited Start: 08-06-2024 End: 08-06-2024 Patient encounter procedure Feliz Demar DO Work Phone: [facility] Work Phone: Start: 08-06-2024 End: 08-06-2024 Periodic preventive med est patient 40-64yrs Feliz Demar DO Work Phone: [facility] Comment on above: Well woman exam with routine gynecological exam Start: 08-06-2024 End: 08-06-2024 Office outpatient visit 25 minutes Diaz Dalton MD Work Phone: [facility] Comment on above: Chronic hypoxic resp iratory failure (CMS/HCC) (Primary Dx); Chronic heart failure with preserved ejection fraction (HFpEF) ([facility]/HCC); Type 2 diabetes mellitus with hyperglycemia, with long-term current use of insulin ([facility]); Pulmonary hypertension ([facility]); Colon cancer screening; Gastroesophageal reflux disease without esophagitis Start: 08-06-2024 End: 08-06-2024 Clinical Support Smitha Germain MD Work Phone: [facility] Comment on above: JOSE M (obstructive sle ep apnea); Chronic hypoxic respiratory failure ([facility]-HCC); Severe obesity (BMI >= 40) ([facility]) Start: 08-05-2024 End: 08-05-2024 Refill Diaz Dalton MD Work Phone: [facility] Comment on above: Type 2 diabetes sanjana itus with hyperglycemia, with long-term current use of insulin ([facility]) Start: 07-30-2024 End: 07-30-2024 Telephone encounter Shakira Gayle [facility] Call Center Comment on above: Abnormal Lab CRITICAL LAB Start: 07-30-2024 End: 07-30-2024 ambulatory Cassy Davila CATTLE DIPPER-PACKER INSPECTOR Work Phone: [facility] Restaurant Host/Hostess Sign In Start: 07-29-2024 End: 07-29-2024 Refill Diaz Dalton MD Work Phone: [facility] Comment on above: Type 2 diabetes sanjana itus with hyperglycemia, with long-term current use of insulin ([facility]) Start: 07-21-2024 End: 07-23-2024 ambulatory DIAZ DALTON [facility] Start: 07-18-2024 End: 07-18-2024 Office outpatient visit 25 minutes Hair See MD Work Phone: [facility] Physicians Cardiology Comment on above: Dyspnea on exertion (Primary Dx); Pulmonary hypertension ([facility]) Start: 07-18-2024 End: 07-18-2024 ambulatory [facility] Start: 07-17-2024 End: 07-17-2024 Telephone encounter Bethanie Patricia CMA [facility] Start: 07-15-2024 End: 07-15-2024 Bamboo flowsheet Barry Snowden POLICY VALUE CALCULATOR Work Phone: [facility] Start: 07-15-2024 End: 07-15-2024 Bamboo flowsheet Barry Snowden POLICY VALUE CALCULATOR Work Phone: [facility] Start: 07-15-2024 End: 07-15-2024 Postop follow up visit related to original px Barry nSowden POLICY VALUE CALCULATOR Work Phone: [facility] Comment on above: Status post carpal t unnel release (Primary Dx) Start: 07-15-2024 End: 07-15-2024 ambulatory BARRY SNOWDEN Not Available Start: 07-10-2024 End: 07-10-2024 Orders Only Diaz Dalton MD Work Phone: [facility] Comment on above: Anxiety state (CMS/H CC) Start: 07-08-2024 End: 07-08-2024 Orders Only Diaz Dalton MD Work Phone: [facility] Comment on above: Anxiety state (CMS/H CC) Start: 07-04-2024 End: 07-04-2024 Clinical Support Pmh Ppc Nurse [facility] Comment on above: Pulmonary hypertensi on (CMS-HCC) (Primary Dx) Start: 07-04-2024 End: 07-04-2024 ambulatory [facility] Start: 07-03-2024 End: 07-03-2024 Telephone encounter Bethanie Patricia CMA [facility] Start: 06-28-2024 End: 06-29-2024 Emergency department patient visit [facility] Start: 06-24-2024 End: 06-24-2024 Bamboo flowsheet Barry Snowden POLICY VALUE CALCULATOR Work Phone: [facility] Start: 06-24-2024 End: 06-24-2024 Bamboo flowsheet Barry Snowden POLICY VALUE CALCULATOR Work Phone: [facility] Start: 06-24-2024 End: 06-24-2024 Postop follow up visit related to original px Barry Snowden POLICY VALUE CALCULATOR Work Phone: [facility] Comment on above: Status post carpal t unnel release (Primary Dx) Start: 06-24-2024 End: 06-24-2024 ambulatory BARRY SNOWDEN Not Available Start: 06-20-2024 End: 06-20-2024 [facility] Comment on above: Cardiac Cath Start: 06-20-2024 End: 06-20-2024 [facility] Start: 06-19-2024 End: 06-19-2024 Telephone encounter Bethanie Patricia CMA [facility] Start: 06-18-2024 End: 07-15-2024 Telephone encounter Arianna Miller DO Work Phone: [facility] Start: 06-17-2024 End: 06-17-2024 ambulatory Arianna Miller Facility:[facility] Start: 06-14-2024 End: 06-14-2024 Refill Barry Snowden POLICY VALUE CALCULATOR Work Phone: [facility] Comment on above: Post-operative pain (Primary Dx) Start: 06-13-2024 End: 06-13-2024 Office outpatient visit 25 minutes Lindsay Arrieta DO Work Phone: [facility] Comment on above: Moderate persistent asthma without complication (Primary Dx); Obstructive sleep apnea syndrome; Pulmonary nodule; Chronic hypoxic respiratory failure ([facility]-HCC) Start: 06-13-2024 End: 06-13-2024 [facility] Start: 06-07-2024 End: 06-07-2024 Telephone encounter Diaz Dalton MD Work Phone: [facility] Start: 06-03-2024 End: 06-07-2024 Telephone encounter Arianna Miller DO Work Phone: [facility] ORTHOPAED[facility] Comment on above: medical clearance Start: 05-30-2024 End: 05-30-2024 Office outpatient visit 15 minutes Arianna Martinezdleston DO Work Phone: [facility] FB ORTHOPAEDICS Comment on above: Right wrist pain; Carpal tunnel syndrome, right Start: 05-30-2024 End: 05-30-2024 ambulatory ARIANNA Phipps PAUL Not Available Start: 05-30-2024 End: 05-30-2024 Bamboo flowsheet Arianna Phipps Paul DO Work Phone: [facility] Start: 05-30-2024 End: 05-30-2024 Bamboo flowsheet Arianna Phipps Paul DO Work Phone: [facility] Start: 05-29-2024 End: 05-29-2024 Bamboo flowsheet Diaz Dalton MD Work Phone: [facility] Start: 05-29-2024 End: 05-29-2024 Bamboo flowsheet Diaz Dalton MD Work Phone: [facility] Start: 05-29-2024 End: 05-29-2024 Office outpatient visit 25 minutes Diaz Dalton MD Work Phone: [facility] Comment on above: Acute pain of right knee (Primary Dx); Type 2 diabetes mellitus with microalbuminuria, with long-term current use of insulin ([facility]); Right carpal tunnel syndrome Start: 05-29-2024 End: 05-29-2024 ambulatory DIAZ DALTON Not Available Start: 05-28-2024 End: 05-28-2024 Telephone encounter Sue Chow [facility] Card[facility] Start: 05-28-2024 End: 05-28-2024 ambulatory DIAZ DALTON [facility] Start: 05-27-2024 End: 05-27-2024 [facility] Start: 05-16-2024 End: 05-17-2024 Emergency department patient visit DIAZ DALTON [facility] Start: 05-15-2024 End: 05-16-2024 Refill Diaz Dalton MD Work Phone: [facility] FM Comment on above: Type 2 diabetes sanjana itus with hyperglycemia, with long-term current use of insulin (CMS/HCC) (Primary Dx); Carpal tunnel syndrome of left wrist; Anxiety state (CMS/HCC) Start: 05-14-2024 End: 05-14-2024 ambulatory DIAZ ROXANE [facility] Start: 05-13-2024 End: 05-13-2024 Bamboo flowsheet Diaz Dalton MD Work Phone: [facility] FM Start: 05-13-2024 End: 05-13-2024 Bamboo flowsheet Diaz Dalton MD Work Phone: [facility] Start: 05-13-2024 End: 05-13-2024 Office outpatient visit 25 minutes Diaz Dalton MD Work Phone: [facility] Comment on above: Type 2 diabetes sanjana itus with hyperglycemia, with long-term current use of insulin (CMS/HCC) (Primary Dx); Right carpal tunnel syndrome; Chronic hypoxic respiratory failure (CMS/HCC); Mild episode of recurrent major depressive disorder (HCC) (CMS/HCC); JOHN (generalized anxiety disorder) (CMS/HCC); Generalized edema; Spondylosis without myelopathy; 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 elsewhere (CMS/HCC) Start: 05-13-2024 End: 05-13-2024 ambulatory DIAZ DALTON Not Available Start: 05-07-2024 End: 05-07-2024 Telephone encounter Silvia Otero Desire [facility] Physicians Pulmonary/Sleep Medicine Comment on above: Chronic hypoxic resp iratory failure (CMS-HCC) (Primary Dx); SOB (shortness of breath); Hypoxia Start: 04-24-2024 End: 04-24-2024 Bamboo flowsheet Feliz Demar DO Work Phone: [facility] Start: 04-24-2024 End: 04-24-2024 Bamboo flowsheet Feliz Demar DO Work Phone: [facility] Start: 04-24-2024 End: 04-24-2024 Office outpatient visit 15 minutes Feliz Carrizaleso DO Work Phone: [facility] Comment on above: Encounter to discuss test results Start: 04-24-2024 End: 04-24-2024 ambulatory FELIZ BENZ Not Available Start: 04-23-2024 End: 04-23-2024 ambulatory [facility] Start: 04-22-2024 End: 04-24-2024 ambulatory [facility] Start: 04-18-2024 End: 08-21-2024 Telephone encounter Adriane QIU [facility] Start: 04-16-2024 End: 04-16-2024 ambulatory [facility] Facility:[facility] Start: 04-15-2024 End: 04-17-2024 Refill Katelyn Recio MD Work Phone: [facility] Physicians Cardiology Comment on above: Med Refill Start: 04-10-2024 End: 04-10-2024 Telephone encounter Smitha Germain MD Work Phone: [facility] Comment on above: Sleep Lab (Comp PSG/ PAP) Start: 04-09-2024 End: 04-09-2024 Office outpatient visit 15 minutes Smitha Germain MD Work Phone: [facility] Phys[facility] Pulmonary/Sleep Medicine Comment on above: JOSE M (obstructive sle ep apnea) (Primary Dx); Chronic hypoxic respiratory failure ([facility]); Severe obesity (BMI >= 40) ([facility]) Start: 04-09-2024 End: 04-09-2024 Orders Only Silvia ROCKWELL [facility] Pulmonary/Sleep Medicine Comment on above: Chronic hypoxic resp iratory failure ([facility]-HCC) (Primary Dx); SOB (shortness of breath); Hypoxia Start: 04-03-2024 End: 04-03-2024 ambulatory [facility] Facility:[facility] Start: 03-21-2024 End: 03-21-2024 Orders Only Stella Reyes RN [facility] Comment on above: Moderate persistent asthma without complication Start: 03-18-[address] [facility] Georgette MEENAKSHI [facility] Start: 03-18-2024 End: 03-18-2024 Phys/qhp telephone evaluation 11-20 min Lindsay Arrieta DO Work Phone: [facility] Comment on above: Chronic hypoxic resp iratory failure ([facility]-HCC) (Primary Dx); Obstructive sleep apnea syndrome; Pulmonary nodule; Moderate persistent asthma without complication Start: 03-12-2024 ambulatory LINDSAY Palomino MEENAKSHI [facility] Start: 03-12-2024 End: 03-13-2024 Telephone encounter Lindsay Arrieta DO Work Phone: [facility] Start: 02-26-2024 End: 02-26-2024 Telephone encounter Lindsay Arrieta DO Work Phone: [facility] Start: 02-19-2024 End: 02-19-2024 Orders Only Lindsay Arrieta DO Work Phone: [facility] Comment on above: Dyspnea on exertion (Primary Dx); Chronic hypoxic respiratory failure ([facility]); Moderate persistent asthma without complication Start: 02-15-2024 End: 03-04-2024 [facility] Start: 02-13-2024 End: 02-13-2024 [facility] Start: 02-08-2024 End: 02-08-2024 Office outpatient visit 25 minutes Lindsay Arrieta DO Work Phone: [facility] Comment on above: Mediastinal lymphade nopathy (Primary Dx); Hypoxia; Pulmonary nodule; Severe obesity (BMI >= 40) ([facility]-HCC); Dyspnea on exertion Start: 01-05-2024 End: 07-10-2024 Telephone encounter Lindsay Arrieta DO Work Phone: [facility] Start: 12-20-2023 End: 12-23-2023 Emergency department patient visit William Mazajuventino ARENAS Work Phone: [facility] Comment on above: Hyperglycemia (Prima ry Dx); Acute cystitis without hematuria; Hypoxia Start: 11-28-2023 Telephone encounter Libby wilde MD [facility] Start: 11-23-2023 End: 11-23-2023 Evaluation and management of inpatient [facility] Start: 11-22-2023 End: 11-23-2023 Evaluation and management of inpatient [facility] Start: 11-22-2023 End: 11-22-2023 Evaluation and management of inpatient [facility] Start: 11-15-2023 End: 11-15-2023 Evaluation and management of inpatient DIAZ DALTON [facility] Start: 11-15-2023 End: 11-15-2023 Admission to [facility] Phone Call Provider 4 [facility]Ad[facility] On [facility] Start: 11-10-2023 End: 11-10-2023 ambulatory [facility] Start: 11-10-2023 End: 11-10-2023 Office outpatient new 45 minutes Libby Finley MD [facility] Comment on above: Mediastinal lymphade nopathy (Primary Dx); Pulmonary nodule; Morbid obesity ([facility]-HCC) Start: 11-09-2023 End: 11-09-2023 ambulatory ANGELA WITT [facility] Comment on above: Mediastinal lymphade nopathy (Primary Dx) Start: 11-09-2023 End: 11-09-2023 Office consultation new/estab patient 60 min Angela Witt MD Work Phone: [facility] - [facility] Comment on above: Cavitary lesion of l yasmeen Start: 10-24-2023 Documentation procedure [facility]jo [facility] Start: 10-10-2023 Documentation procedure Bethanie Covarrubias [facility] - [facility] Start: 10-10-2023 End: 10-10-2023 Office outpatient visit 15 minutes Feliz Benz DO Work Phone: [facility] Comment on above: Amenorrhea Start: 10-05-2023 End: 10-05-2023 Postop follow up visit related to original px Barry Snowden POLICY VALUE CALCULATOR Work Phone: [facility] Comment on above: Status post carpal t unnel release (Primary Dx) Start: 09-25-2023 End: 09-25-2023 ambulatory [facility] Facility:[facility] Start: 09-13-2023 End: 09-13-2023 ambulatory [facility] Facility:[facility] Start: 09-11-2023 Documentation procedure Bethanie Covarrubias [facility] - [facility] Start: 01-10-2023 End: 01-10-2023 ambulatory NICOLÁS WARREN . Facility: Start: 12-26-2022 End: 12-27-[address] FELIZ BENZ . Facility: Start: 12-07-2022 End: 12-07-2022 ambulatory [facility] Start: 11-21-2022 End: 11-21-2022 ambulatory [facility] Start: 11-04-2022 End: 11-04-2022 ambulatory [facility] Start: 09-14-2022 End: 09-15-[address] FELIZ BENZ . Facility:[facility] Start: 07-14-2022 End: 07-14-[address] FELIZ BENZ . Facility:[facility] Start: 06-22-2022 End: 06-23-[address] FELIZ BENZ . Facility:[facility] Start: 02-23-2022 End: 02-24-[address] DIAZ DALTON Facility:[facility] Start: 01-23-2022 End: 01-23-[address] DIAZ DALTON Facility:[facility] Start: 09-30-2021 ambulatory DIAZ DALTON Fa cility:[facility] Start: 09-28-2021 End: 10-03-2021 Evaluation and management of inpatient YAAKOV Fan [facility] Start: 09-28-2021 End: 10-03-2021 Evaluation and management of inpatient Jamal Levine MD Work Phone: [facility] Start: 06-09-2015 End: 08-10-2023 Gynecological examination normal Barry Snowden POLICY VALUE CALCULATOR Work Phone: [facility] Procedures Date Procedure Procedure Detail Performing Clinician Start: 03-04-2025 MR KNEE LT WO CON Shama Medina PA Work Phone: Start: 02-25-2025 Radiologic examination knee 1/2 views Shama KAPLAN Work Phone: Start: 11-01-2024 Hemoglobin glycosylated a1c Diaz Dalton MD Work Phone: Start: 09-12-2024 Colonoscopy Allyson Briscoe NAIL SETTER Start: 08-06-2024 IGP,APTIMA HPV,AGE GDLN Feliz Demar DO Work Phone: Start: 08-06-2024 Microscopic observation [Identifier] in Cervix by Cyto stain Diaz Dalton MD Work Phone: Start: 06-30-2024 Mammography Diaz Dalton MD Work Phone: Start: 06-20-2024 Follow-up visit Follow-up KATELYN RECIO Start: 06-13-2024 Follow-up visit Follow-up LINDSAY ARRIETA Start: 12-23-2023 Gluc bld gluc mntr dev cleared fda spec home use Ezequiel Graff MD Work Phone: Start: 12-23-2023 Gluc bld gluc mntr dev cleared fda spec home use Ezequiel Graff MD Work Phone: Start: 12-23-2023 Basic metabolic panel calcium total Erin Desire Elwell CATTLE DIPPER-PACKER INSPECTOR Work Phone: Start: 12-22-2023 End: 12-22-2023 Gluc bld gluc mntr dev cleared fda spec home use Ezequiel Graff MD Work Phone: Start: 12-22-2023 Gluc bld gluc mntr dev cleared fda spec home use Ezequiel Graff MD Work Phone: Start: 12-22-2023 Gluc bld gluc mntr dev cleared fda spec home use Ezequiel Graff MD Work Phone: Start: 12-22-2023 Basic metabolic panel calcium total Erin A Vanessa CATTLE DIPPER-PACKER INSPECTOR Work Phone: Start: 12-21-2023 Gluc bld gluc mntr dev cleared fda spec home use Ezequiel Graff MD Work Phone: Start: 12-21-2023 Gluc bld gluc mntr dev cleared fda spec home use Ezequiel Graff MD Work Phone: Start: 12-21-2023 Gluc bld gluc mntr dev cleared fda spec home use Ezequiel Graff MD Work Phone: Start: 12-21-2023 HOME O2 EVALUATION Eddie Zurita CATTLE DIPPER- PACKER INSPECTOR Work Phone: Start: 12-21-2023 Glucose quantitative blood xcpt reagent strip Eddie Zurita CATTLE DIPPER-PACKER INSPECTOR Work Phone: Start: 12-21-2023 Basic metabolic panel calcium total Erin A Vanessa CATTLE DIPPER-PACKER INSPECTOR Work Phone: Start: 12-20-2023 Gluc bld gluc mntr dev cleared fda spec home use Ezequiel Graff MD Work Phone: Start: 12-20-2023 PULSE OXIMETRY, SPOT Erin A Vanessa CATTLE DIPPER-PACKER INSPECTOR Work Phone: Start: 12-20-2023 End: 12-20-2023 Gluc bld gluc mntr dev cleared fda spec home use William Kent DO Work Phone: Start: 12-20-2023 Ketone bodies serum quantitative Dayna Doe APRNEmairPACKER INSPECTOR Work Phone: Start: 12-20-2023 Radiologic exam chest single view [facility] Work Phone: Start: 12-20-2023 Urnls dip stick/tablet rgnt auto w/o microscopy William Kent DO Work Phone: Start: 12-20-2023 End: 12-20-2023 Comprehensive metabolic panel Dayna Doe [facility] Work Phone: Start: 12-20-2023 Culture bacterial quanttative colony count urine Dayna Doe [facility] Work Phone: Start: 12-20-2023 Ecg routine ecg w/least 12 lds trcg only w/o i&r Dayna Doe [facility] Work Phone: Start: 08-01-2023 Microscopic observation [Identifier] in Cervix by Cyto stain Diaz Dalton MD Work Phone: Start: 06-30-2023 Mammography Barry Snowden NP Work Phone: Start: 06-05-2023 Adult depression screening assessment Bethanie Loredo Start: 07-14-2022 Microscopic observation [Identifier] in Cervix by Cyto stain Bethanie Loredo Start: 06-07-2022 Microalbumin [Mass/volume] in Urine by Test strip Bethanie Loredo Start: 10-03-2021 Glucose blood reagent strip Guido Salas DO Work Phone: Start: 10-03-2021 Glucose blood reagent strip Guido Salas DO Work Phone: Start: 10-03-2021 Basic metabolic panel calcium total Terrance Smalls PA-C Work Phone: Start: 10-03-2021 IMMATURE PLATELET FRACTION Terrance Smalls PA-C Work Phone: Start: 10-02-2021 Glucose blood reagent strip Guido Salas DO Work Phone: Start: 10-02-2021 Glucose blood reagent strip Guido Salas DO Work Phone: Start: 10-02-2021 Glucose blood reagent strip Guido Salas DO Work Phone: Start: 10-02-2021 Renal function panel Guido Salas DO Work Phone: Start: 10-02-2021 Glucose blood reagent strip Guido Salas DO Work Phone: Start: 10-02-2021 End: 10-02-2021 Assay of phosphorus inorganic Terrance Smalls PA-C Work Phone: Start: 10-01-2021 Glucose blood reagent strip Guido Salas DO Work Phone: Start: 10-01-2021 Toxin/antitoxin assay tissue culture Omar Lopez MD Work Phone: Start: 10-01-2021 Glucose blood reagent strip Guido Salas DO Work Phone: Start: 10-01-2021 End: 10-01-2021 Electrolyte panel Terrance Munoz Work Phone: Start: 10-01-2021 Ct abdomen & pelvis w/o contrast material Guido Salas DO Work Phone: Start: 10-01-2021 Iadna-dna/rna gi pthgn multiplex probe tq 12-25 Guido Salas DO Work Phone: Start: 10-01-2021 RESPIRATORY PANEL, MOLECULAR, WITH COVID-19 Guido Salas DO Work Phone: Start: 10-01-2021 Glucose blood reagent strip Guido Salas DO Work Phone: Start: 10-01-2021 End: 10-01-2021 Electrolyte panel Guido Salas DO Work Phone: Start: 10-01-2021 Assay of [...] TO MG FOR LOW K Corina R Aureliano CATTLE DIPPER - POLICY VALUE CALCULATOR Work Phone: Start: 09-30-2021 SPECIMEN REJECTION Mi [...] 09-29-2021 Basic metabolic panel calcium total Mi Agarwalsalome Ahuja MD Work Phone: Start: 09-29-2021 SPECIMEN REJECTION Jose Casarez MD Work Phone: Start: 09-29-2021 Basic metabolic panel calcium total Harmandeep Gironsalome Ahuja MD Work Phone: Start: 09-29-2021 Basic metabolic panel calcium total Lesleyandeep Bree Sra WERNER Work Phone: Start: 09-29-2021 Glucose blood reagent strip Jamal Levine MD Work Phone: Start: 09-28-2021 Glucose blood reagent strip Jamal Levine MD Work Phone: Start: 09-28-2021 End: 09-28-2021 Basic metabolic panel calcium total Lesleyandeekarley Agarwalsalome Ahuja MD Work Phone: Start: 09-28-2021 End: 09-28-2021 Glucose blood reagent strip Jamal Levine MD Work Phone: Start: 09-28-2021 End: 09-28-2021 Basic metabolic panel calcium total Lesleyandeekarley Agarwalsalome Ahuja MD Work Phone: Start: 09-28-2021 End: 09-28-2021 Glucose blood reagent strip Jamal Levine MD Work Phone: Start: 09-28-2021 Glucose blood reagent strip Jamal Levine MD Work Phone: Start: 09-28-2021 End: 09-28-2021 Basic metabolic panel calcium total Lesleyandeep Bree Sra WERNER Work Phone: Start: 09-28-2021 End: 09-28-2021 Glucose [...] Status post carpal tunnel release Barry Snowden POLICY VALUE CALCULATOR Work Phone: History of decompres maria teresa of median nerve Status post carpal tunnel release Barry Snowden POLICY VALUE CALCULATOR Work Phone: History of decompres maria teresa of median nerve Status post carpal tunnel release Barry Snowden POLICY VALUE CALCULATOR Work Phone: Plan of Treatment Date Care Activity Detail Author Start: 09-12-2034 Screening for malignant neoplasm of colon [facility] Start: 04-09-2031 DTaP,Tdap and Td Vaccines (2 - Td or Tdap) DTaP,Tdap and Td Vaccines (2 - Td or Tdap) [facility] Start: 04-09-2031 DTaP/Tdap/Td vaccine (2 - Td or Tdap) DTaP/Tdap/Td vaccine (2 - Td or Tdap) [facility] Start: 09-12-2029 Screening for malignant neoplasm of colon Colonoscopy [facility] Start: 08-06-2027 Screening for malignant neoplasm of cervix Pap Smear [facility] Start: 07-14-2027 Screening for malignant neoplasm of cervix [facility] Start: 03-25-2027 Glaucoma screening Diabetes: Retinopathy Screening [facility] Start: 03-20-2027 Glaucoma screening Diabetes: Retinopathy Screening [facility] Start: 12-09-2026 Glaucoma screening Diabetes: Retinopathy Screening [facility] Start: 08-01-2026 Screening for malignant neoplasm of cervix Pap Smear [facility] Start: 03-13-2026 Adult BMI Screening Adult BMI Screening [facility] Start: 01-21-2026 Glaucoma screening Diabetes: Retinopathy Screening [facility] Start: 01-03-2026 Adult BMI Screening Adult BMI Screening [facility] Start: 01-03-2026 Tobacco Screening Tobacco Screening [facility] Start: 12-06-2025 Tobacco Screening Tobacco Screening [facility] Start: 12-04-2025 Adult BMI Screening Adult BMI Screening [facility] Start: 12-04-2025 Tobacco Screening Tobacco Screening [facility] Start: 10-07-2025 Adult BMI Screening Adult BMI Screening [facility] Start: 10-07-2025 Tobacco Screening Tobacco Screening [facility] Start: 09-12-2025 Adult BMI Screening Adult BMI Screening [facility] Start: 09-12-2025 Tobacco Screening Tobacco Screening [facility] Start: 09-05-2025 Adult BMI Screening Adult BMI Screening [facility] Start: 09-05-2025 Tobacco Screening Tobacco Screening [facility] Start: 08-19-2025 End: 08-19-2025 Patient encounter procedure [facility] Start: 08-06-2025 Adult BMI Screening Adult BMI Screening [facility] Start: 08-06-2025 Tobacco Screening Tobacco Screening [facility] Start: 07-23-2025 Adult BMI Screening Adult BMI Screening [facility] Start: 07-21-2025 Tobacco Screening Tobacco Screening [facility] Start: 07-18-2025 Adult BMI Screening Adult BMI Screening [facility] Start: 07-18-2025 Tobacco Screening Tobacco Screening [facility] Start: 07-14-2025 Screening for malignant neoplasm of cervix Pap Smear [facility] Start: 07-07-2025 End: 07-07-2025 Patient encounter procedure 07/07/2025 9:30 AM EST Office Visit [facility] [address] [place] [phone] Adriane Woods, CATTLE DIPPER-PACKER INSPECTOR [address] [place] [phone] [facility] Start: 06-30-2025 Screening for malignant neoplasm of breast Mammogram [facility] Start: 06-28-2025 Adult BMI Screening Adult BMI Screening [facility] Start: 06-26-2025 Tobacco Screening Tobacco Screening [facility] Start: 06-20-2025 Adult BMI Screening Adult BMI Screening [facility] Start: 06-20-2025 Tobacco Screening Tobacco Screening [facility] Start: 06-13-2025 Adult BMI Screening Adult BMI Screening [facility] Start: 06-13-2025 Tobacco Screening Tobacco Screening [facility] Start: 05-26-2025 End: 05-26-2025 Patient encounter procedure 05/26/2025 1:20 PM EDT Consult CHELSEY CARRERA [address] [place] [address] Feliz Benz DO [address] [place] [address] [facility]HEL[facility] CARRER[facility] Start: 05-22-2025 End: 05-22-2025 Patient encounter procedure 05/22/2025 1:30 PM EDT Office Visit [facility] [address] [place] [address] Diaz Dalton MD [address] [place] [phone] [facility] Start: 05-16-2025 Adult BMI Screening Adult BMI Screening [facility] Start: 05-16-2025 Tobacco Screening Tobacco Screening [facility] Start: 05-15-2025 End: 05-15-2025 Patient encounter procedure 05/15/2025 1:00 PM EDT Office Visit [facility] [address] [place] [phone] Diaz Dalton MD [address] [place] [address] [facility] Start: 05-05-2025 Influenza vaccination [facility] Start: 05-01-2025 Hemoglobin A1c measurement Diabetes: Hemoglobin A1C [facility] Start: 04-23-2025 Tobacco Screening Tobacco Screening [facility] Start: 04-22-2025 End: 04-22-2025 Patient encounter procedure [facility] Comment on above: Arrived Start: 04-21-2025 End: 04-21-2025 Patient encounter procedure 04/21/2025 2:30 PM EDT Procedure Visit [facility] CARRERA [address] [place] [address] Feliz Benz, [address] [place] [address] [facility] Benny OBNATALIE Start: 04-21-2025 End: 04-21-2025 ambulatory [facility] Start: 04-18-2025 End: 04-18-2025 ambulatory [facility] Start: 04-15-2025 End: 04-15-2025 ambulatory [facility] Start: 04-14-2025 End: 10-15-2025 US Pelvis US Pelvis w/ TV Imaging Routine Pelvic pain in female Expected: 04/14/2025, Expires: 10/15/2025 [facility] Work Phone: Comment on above: Expected: 04/14/2025, Expires: Start: 04-14-2025 End: 04-14-2025 Patient encounter procedure [facility] OBNIKON Comment on above: Arrived Start: 04-10-2025 End: 04-10-2025 ambulatory [facility] Start: 04-09-2025 Adult BMI Screening Adult BMI Screening [facility] Start: 04-09-2025 Tobacco Screening Tobacco Screening [facility] Start: 04-08-2025 End: 04-08-2025 Patient encounter procedure [facility] Start: 04-07-2025 End: 04-07-2025 ambulatory [facility] Start: 04-03-2025 End: 04-03-2025 Clinical Support 04/03/2025 11:00 AM EDT Clinical Support [facility] Medication Management [address] [place] [address] [facility] Start: 04-02-2025 End: 04-02-2025 ambulatory [facility] Comment on above: Acute pain of left knee (Primary Dx) Start: 03-28-2025 End: 03-28-2025 ambulatory 03/28/2025 12:00 PM EDT Treatment [facility] [address] [place] [address] Ubaldo Herzog PTA [facility] Start: 03-26-2025 End: 03-26-2025 ambulatory [facility] Comment on above: Acute pain of left knee (Primary Dx) Start: 03-21-2025 End: 03-21-2025 ambulatory [facility] Comment on above: Acute pain of left knee Start: 03-20-2025 End: 03-20-2025 Clinical Support 03/20/2025 1:30 PM EDT Clinical Support [facility] Medication Management [address] [place] [address] [facility]ication [facility] Start: 03-18-2025 End: 03-18-2025 Patient encounter procedure 03/18/2025 11:00 AM EDT Office Visit [facility] [address] [place] [address] Shama Medina, PA [address] [place] [address] [facility] Start: 03-17-2025 End: 03-17-2025 Patient encounter procedure 03/17/2025 2:30 PM EDT Procedure Visit [facility] [address] [facility] [place] [phone] Feliz Benz, DO [address] [facility] [place] [address] [facility] Start: 03-14-2025 End: 03-14-2025 Patient encounter procedure [facility] Comment on above: Arrived Start: 03-13-2025 End: 03-13-2025 Patient encounter procedure 03/13/2025 9:30 AM EDT Office Visit [facility] [address] [place] [address] Lindsay Arrieta, DO [address] [address] [facility] Start: 02-25-2025 End: 02-25-2025 Patient encounter procedure [facility] Comment on above: Acute pain of right knee Start: 02-25-2025 End: 02-25-2026 MR Knee - left WO contrast MR knee left wo IV contrast Imaging Routine Internal derangement of left knee Expected: 02/25/2025 (Approximate), Expires: 02/25/2026 [facility] Work Phone: Comment on above: Expected: 02/25/2025 (Approximate), Expi res: 02/25/2026 Start: 02-10-2025 End: 02-10-2026 Basic metabolic 1998 panel - Serum or Plasma Basic metabolic panel Lab Routine Benign essential hypertension (CMS/HCC) Expected: 02/10/2025 (Approximate), Expires: 02/10/2026 [facility] Comment on above: Expected: 02/10/2025 (Approximate), Expi res: 02/10/2026 Start: 02-10-2025 End: 02-10-2026 CBC W Auto Differential panel - Blood CBC and differential Lab Routine Encounter for long-term (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 medications Expected: 02/10/2025 (Approximate), Expires: 02/10/2026 [facility] Comment on above: Expected: 02/10/2025 (Approximate), Expi res: 02/10/2026 Start: 02-10-2025 End: 02-10-2026 Hemoglobin A1c/Hemoglobin.total in Blood Hemoglobin A1c Lab Routine Type 2 diabetes mellitus with hyperglycemia, with long-term current use of insulin ([facility]) Expected: 02/10/2025 (Approximate), Expires: 02/10/2026 [facility] Comment on above: Expected: 02/10/2025 (Approximate), Expi res: 02/10/2026 Start: 02-10-2025 End: 02-10-2026 Hepatic function 2000 panel - Serum or Plasma Hepatic function panel Lab Routine Encounter for long-term (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 medications Expected: 02/10/2025 (Approximate), Expires: 02/10/2026 [facility] Comment on above: Expected: 02/10/2025 (Approximate), Expi res: 02/10/2026 Start: 02-10-2025 End: 02-10-2026 Lipid 1996 panel - Serum or Plasma Lipid panel Lab Routine Dyslipidemia ([facility]) Expected: 02/10/2025 (Approximate), Expires: 02/10/2026 [facility] Comment on above: Expected: 02/10/2025 (Approximate), Expi res: 02/10/2026 Start: 02-10-2025 End: 02-10-2026 Microalbumin/Creatinine panel in random Urine Microalbumin / creatinine, urine ratio Lab Routine Type 2 diabetes mellitus with hyperglycemia, with long-term current use of insulin ([facility]) Expected: 02/10/2025 (Approximate), Expires: 02/10/2026 [facility] Work Phone: Comment on above: Expected: 02/10/2025 (Approximate), Expi res: 02/10/2026 Start: 02-10-2025 End: 02-10-2026 Thyrotropin [Units/volume] in Serum or Plasma TSH Lab Routine Class 3 severe obesity due to excess calories with serious comorbidity and body mass index (BMI) of 40.0 to 44.9 in adult Expected: 02/10/2025 (Approximate), Expires: 02/10/2026 [facility] Comment on above: Expected: 02/10/2025 (Approximate), Expi res: 02/10/2026 Start: 02-10-2025 End: 02-10-2025 Patient encounter procedure 02/10/2025 1:00 PM EDT [facility] [address] [place] [address] Diaz Dalton MD [address] [place] [address] [facility] Start: 02-07-2025 Adult BMI Screening Adult BMI Screening [facility] Start: 02-07-2025 Tobacco Screening Tobacco Screening [facility] Start: 02-03-2025 End: 02-03-2025 Patient encounter procedure 02/03/2025 10:00 AM EDT Appointment [facility] Function [address] [place] [address] Lindsay Arrieta M, DO [address] [address] [facility] Start: 02-02-2025 End: 06-13-2025 Pulmonary function test Spirometry (Flow Volume Loop) pre/post short acting bronchodilator w/ DLCO (diffusion study) Pulmonary function test Spirometry (Flow Volume Loop) pre/post short acting bronchodilator w/ DLCO (diffusion study) PFT Routine Moderate persistent asthma without complication Chronic hypoxic respiratory failure ([facility]) Expected: 02/02/2025 (Approximate), Expires: 06/13/2025 [employer] Work Phone: Comment on above: Expected: 02/02/2025 (Approximate), Expi res: 06/13/2025 Start: 01-19-2025 Hemoglobin A1c measurement Diabetes: Hemoglobin A1C [facility] Start: 01-08-2025 End: 01-08-2025 Patient encounter procedure 01/08/2025 1:15 PM EDT Procedure Visit [facility] [address] [facility] [place] [address] Carmen Bowman, DPGeorgette [address] [place], [place] [phone] [facility] Start: 01-03-2025 End: 01-03-2025 Patient encounter procedure 01/03/2025 9:15 AM EDT Office Visit [facility] [address] [facility] [address] [facility] [address] [place] [phone] Katelyn Recio MD [address] [place] [address] [facility] Start: 12-31-2024 End: 12-31-2024 Patient encounter procedure 12/31/2024 11:30 AM EDT Office Visit [facility] [place] [address] Smitha Germain MD [address] [facility] [address] [place] [address] [facility] Start: 12-04-2024 End: 12-04-2024 Patient encounter procedure 12/04/2024 1:00 PM EDT Office Visit [facility] [place] [phone] Pacheco Madrigal, CATTLE DIPPER-PACKER INSPECTOR [address] [facility], [address] [place] [address] [facility] Start: 11-25-2024 Hemoglobin A1c measurement Diabetes: Hemoglobin A1C [facility] Start: 11-21-2024 Tobacco Screening Tobacco Screening [facility] Start: 11-20-2024 End: 11-20-2024 Clinical Support 11/20/2024 8:00 PM EDT Clinical Support [facility] [address] [place] [address] Smitha Germain MD [address] [facility] [address] [place] [address] [facility] Start: 11-14-2024 Adult BMI Screening Adult BMI Screening [facility] Start: 11-14-2024 Tobacco Screening Tobacco Screening [facility] Start: 11-09-2024 Adult BMI Screening Adult BMI Screening [facility] Start: 11-09-2024 Tobacco Screening Tobacco Screening [facility] Start: 11-07-2024 End: 11-07-2024 [facility] Comment on above: Arrived Start: 10-28-2024 End: 10-28-2024 Patient encounter procedure 10/28/2024 2:15 PM EST [facility] [address] [place] [address] Diaz Dalton MD [address] [place] [phone] [facility] Comment on above: Arrived Start: 10-28-2024 End: 10-28-2025 Hemoglobin A1c/Hemoglobin.total in Blood Hemoglobin A1c Lab Routine Type 2 diabetes mellitus with hyperglycemia, with long-term current use of insulin ([facility]) Expected: 10/28/2024 (Approximate), Expires: 10/28/2025 [facility] Work Phone: Comment on above: Expected: 10/28/2024 (Approximate), Expi res: 10/28/2025 Start: 10-27-2024 Tobacco Screening Tobacco Screening [facility] Start: 10-18-2024 Adult BMI Screening Adult BMI Screening [facility] Start: 10-09-2024 End: 10-09-2024 Patient encounter procedure 10/09/2024 1:15 PM EST Office Visit [facility] [address] [place] [address] Carmen Bowman DPM [address] [place] [address] [facility] Start: 10-07-2024 End: 10-07-2024 Patient encounter procedure 10/07/2024 8:15 AM EST Office Visit [facility] [address] [phone] Katelyn Recio MD [address] [place] [address] [facility] Start: 10-02-2024 Urine screening for protein Diabetes: Urine Protein Screening [facility] Start: 09-25-2024 End: 09-25-2024 Patient encounter procedure 09/25/2024 1:15 PM EST Office Visit [facility] [address] [place] [address] Carmen Bowman DPM [address] [place] [address] [facility] Start: 09-12-2024 End: 09-12-2024 Admission to same day surgery center 09/12/2024 11:30 AM EST - 09/12/2024 12:00 PM EST Surgery [facility] Surgery [address] [place] [phone] Aliya Solorzano, [address] [place] [address] COLONOSCOPY DIAGNOSTIC / SCREENING [20979 (CPT )] [facility] Comment on above: COLONOSCOPY DIAGNOSTIC / SCREENING [4537 8 (CPT )] Start: 09-12-2024 End: 09-12-2024 Anesthesia consultation 09/12/2024 11:30 AM EST Anesthesia Event [facility] [address] [place] [phone] Ector Saini, DO [address] [place] [address] [facility] Start: 09-12-2024 End: 09-12-2024 Colonoscopy flx dx w/collj spec when pfrmd COLONOSCOPY DIAGNOSTIC / SCREENING Screen for colon cancer 09/12/2024 11:30 AM EST [facility] Start: 09-12-2024 Subsequent hospital visit by physician 09/12/2024 11:30 AM EST Hospital Encounter [facility] [address] [place] [phone] Aliya Solorzano, [address] [place], [place] [id number] [facility] Start: 08-15-2024 End: 08-15-2024 Patient encounter procedure 08/15/2024 1:30 PM EST [facility] [address] [place] [address] Diaz Dalton MD [address] [place] [phone] [facility] Start: 08-14-2024 Hemoglobin A1c measurement Diabetes: Hemoglobin A1C [facility] Start: 08-06-2024 End: 08-06-2024 Patient encounter procedure [facility] Comment on above: Arrived Start: 07-25-2024 End: 07-18-2025 Basic metabolic 2000 panel - Serum or Plasma Basic Metabolic Panel Lab Routine Dyspnea on exertion Pulmonary hypertension ([facility]) Expected: 07/25/2024, Expires: 07/18/2025 [facility] Work Phone: Comment on above: Expected: 07/25/2024, Expires: Start: 07-18-2024 End: 07-18-2024 Patient encounter procedure 07/18/2024 11:30 AM EST [facility] [address] [place] [address] Hair See MD [address] [place] [address] [facility] Start: 07-15-2024 End: 07-15-2024 Patient encounter procedure 07/15/2024 10:15 AM EST Office Visit [facility] [address] [facility] [phone] Barry Snowden NP [address] [place], [place] [id number] [facility] Start: 07-13-2024 Adult BMI Screening Adult BMI Screening [facility] Start: 07-13-2024 Tobacco Screening Tobacco Screening [facility] Start: 07-04-2024 End: 07-04-2024 Clinical Support 07/04/2024 9:00 AM EDT Clinical Support [facility] [address] [place] [address] [facility] Start: 06-30-2024 Screening for malignant neoplasm of breast Mammogram [facility] Start: 06-26-2024 End: 06-26-2024 Admission to same day surgery center 06/26/2024 8:30 AM EDT - 06/26/2024 9:30 AM EDT Surgery [facility] - Cardiac Cath [address] [place] [address] Nicolás Vallejo MD [address] [place] [address] Cardiac Invasive [facility] Cardiac Cath Comment on above: Cardiac Invasive Start: 06-26-2024 Subsequent hospital visit by physician 06/26/2024 8:30 AM EDT Hospital Encounter [facility] - Cardiac Cath [address] [place] [address] Nicolás Vallejo MD [address] [place] [address] Pulmonary hypertension ([facility]) [facility] Comment on above: Pulmonary hypertension ([facility]) Start: 06-24-2024 End: 06-24-2024 Patient encounter procedure [facility] Comment on above: Arrived Start: 06-20-2024 End: 06-20-2024 Patient encounter procedure 06/20/2024 8:00 AM EDT Office Visit [facility] [address] [place] [address] Nicolás Vallejo MD [address] [place] [address] Katelyn Recio MD [address] [place] [address] [facility] Start: 06-17-2024 End: 06-17-2024 Patient encounter procedure 06/17/2024 9:00 AM EDT Procedure Visit [facility] Arianna Miller, DO [address] [facility] [address] [place], [place] [phone] [facility] Start: 06-13-2024 End: 06-13-2024 Patient encounter procedure 06/13/2024 1:00 PM EDT Office Visit [facility] [address] [place] [phone] Lindsay Arrieta, DO [address] [address] [facility] Start: 06-05-2024 Depression Screening Depression Screening [facility] Start: 05-30-2024 End: 05-30-2024 Patient encounter procedure [facility] Comment on above: Arrived Start: 05-29-2024 End: 05-29-2024 Patient encounter procedure 05/29/2024 9:45 AM EDT Office Visit [facility] [address] [place] [address] Diaz Dalton MD [address] [place] [address] Arrived [facility] Comment on above: Arrived Start: 05-28-2024 End: 05-28-2024 Patient encounter procedure 05/28/2024 11:30 AM EDT Office Visit [facility] [address] [facility] [address] [place] [address] Nicolás Vallejo MD [address] [place], [place] [phone] [facility] Start: 05-16-2024 End: 05-16-2024 Patient encounter procedure 05/16/2024 9:45 AM EDT Office Visit [facility] [address] [facility] [address] [place] [address] Lindsay Arrieta M, DO [address] [address] [facility] Start: 05-15-2024 Hemoglobin A1c measurement Diabetes: Hemoglobin A1C [facility] Start: 05-14-2024 End: 05-14-2024 Patient encounter procedure 05/14/2024 8:30 AM EDT Appointment [facility] [address] [place] [phone] [facility] Start: 05-13-2024 End: 05-13-2025 Hemoglobin A1c/Hemoglobin.total in Blood Hemoglobin A1c Lab Routine Type 2 diabetes mellitus with hyperglycemia, with long-term current use of insulin ([facility]) Expected: 05/13/2024 (Approximate), Expires: 05/13/2025 [facility] Work Phone: Comment on above: Expected: 05/13/2024 (Approximate), Expi res: 05/13/2025 Start: 05-13-2024 End: 05-13-2024 Patient encounter procedure [facility] Comment on above: Arrived Start: 05-05-2024 COVID-19 Vaccine ( season) COVID-19 Vaccine ( season) [facility] Start: 05-05-2024 COVID-19 Vaccine () COVID-19 Vaccine () [facility] Start: 05-05-2024 Influenza vaccination [facility] Start: 04-24-2024 End: 04-24-2024 Patient encounter procedure 04/24/2024 1:50 PM EDT Office Visit [facility] [address] [facility] [place] [address] Feliz Benz DO [address] [facility] [address] [place], [place] [phone] Arrived [facility] Comment on above: Arrived Start: 04-23-2024 End: 02-07-2025 CT Chest limited W contrast IV CT chest with contrast Imaging Routine Mediastinal lymphadenopathy Expected: 04/23/2024, Expires: 02/07/2025 [facility] Work Phone: Comment on above: Expected: 04/23/2024, Expires: Start: 04-23-2024 End: 04-23-2024 Patient encounter procedure 04/23/2024 8:30 AM EDT Appointment [facility] [address] [place] [address] Lindsay Arrieta, DO [address] [address] [facility] Start: 04-09-2024 End: 04-09-2024 Patient encounter procedure 04/09/2024 11:00 AM EDT Office Visit [facility] [address] [place] [address] Smitha Germain MD [address] [address] [facility] Start: 03-18-2024 End: 03-18-2024 Telemedicine consultation with patient 03/18/2024 3:00 PM EDT Telemedicine [facility] [address] [place] [phone] Lindsay Arrieta, DO [address] [address] [facility] Start: 03-12-2024 End: 03-12-2024 Telemedicine consultation with patient 03/12/2024 2:00 PM EDT Telemedicine [facility] [address] [place] [phone] Lindsay Arrieta, DO [address] [place] [address] [facility] Start: 02-19-2024 End: 02-18-2025 Echo complete W/O contrast Echo complete W/O contrast Echocardiography Routine Dyspnea on exertion Chronic hypoxic respiratory failure ([facility]) Expected: 02/19/2024, Expires: 02/18/2025 [facility] Phone: Comment on above: Expected: 02/19/2024, Expires: Start: 02-19-2024 End: 02-18-2025 XR Chest PA and Lateral X-ray chest 2 views Imaging Routine Dyspnea on exertion Expected: 02/19/2024, Expires: 02/18/2025 [facility] Comment on above: Expected: 02/19/2024, Expires: Start: 02-15-2024 End: 02-15-2024 ambulatory 02/15/2024 2:00 PM EDT Monitor [facility] Infant Monitor [address] [phone] [facility] - Monitor Start: 02-13-2024 End: 02-13-2024 Patient encounter procedure 02/13/2024 8:00 AM EDT Appointment [facility] - Pulmonary Function [address] [place] [phone] Lindsay Arrieta, DO [address] [facility] [address] [place] [address] [facility] - Pulmonary Function Start: 02-08-2024 End: 02-08-2024 Patient encounter procedure 02/08/2024 9:00 AM EDT [facility] [address] [place] [phone] Lindsay Arrieta, DO [address] [facility] [address] [place] [address] [facility] Start: 11-22-2023 End: 11-22-2023 Admission to same day surgery center 11/22/2023 1:30 PM EDT - 11/22/2023 3:15 PM EDT Surgery [facility] - Endoscopy [address] [place] [phone] Libby Finley MD [address] [facility] [place] [address] ENDOBRONCHIAL ULTRASOUND BRONCHOSCOPY [facility] - Endoscopy Comment on above: ENDOBRONCHIAL ULTRASOUND BRONCHOSCOPY Start: 11-22-2023 End: 11-22-2023 ENDOBRONCHIAL ULTRASOUND BRONCHOSCOPY ENDOBRONCHIAL ULTRASOUND BRONCHOSCOPY LYMPH ADENOPATHY 11/22/2023 1:30 PM EDT [facility] Start: 11-22-2023 Subsequent hospital visit by physician 11/22/2023 1:30 PM EDT Hospital Encounter [facility] Endoscopy [address] [place] [phone] Libby Finley MD [address] [place] [address] [facility] - Endoscopy Start: 11-15-2023 End: 11-15-2023 Admission to establishment 11/15/2023 10:30 AM EDT Support Visit [facility]-Admission [facility] On [address] [address] [facility] On [facility] Start: 11-02-2023 End: 11-02-2023 Patient encounter procedure 11/02/2023 1:30 PM EST Office Visit [facility] [address] [place] [phone] Barry Snowden, POLICY VALUE CALCULATOR [address] [place] [address] [facility] Start: 10-26-2023 End: 10-26-2023 Patient encounter procedure 10/26/2023 10:00 AM EST Appointment [facility] - Ultrasound [address] [place] [address] [facility] - Ultrasound Start: 10-17-2023 End: 10-17-2023 Patient encounter procedure 10/17/2023 1:30 PM EST Office Visit [facility] [address] [place] [address] Diaz Dalton MD [address] [place] [address] [facility] Start: 10-11-2023 End: 10-11-2024 Estrogens, total Estrogens, total Lab Routine Amenorrhea Expected: 10/11/2023 (Approximate), Expires: 10/11/2024 [facility] Comment on above: Expected: 10/11/2023 (Approximate), Expi res: 10/11/2024 Start: 10-11-2023 End: 10-11-2024 US for US PELVIS-TRANSVAG IF INDICATED Imaging Routine Amenorrhea Expected: 10/11/2023 (Approximate), Expires: 10/11/2024 [facility] Comment on above: Expected: 10/11/2023 (Approximate), Expi res: 10/11/2024 Start: 10-10-2023 End: 10-10-2023 Patient encounter procedure 10/10/2023 8:00 AM EST Office Visit [facility] [address] [place] [phone] Feliz Benz DO [address] [place] [address] Amenorrhea [facility] Comment on above: Amenorrhea Start: 06-07-2023 Urine screening for protein Urine Microalbumin [facility] Start: 06-03-2023 Hemoglobin A1c measurement Diabetes: Hemoglobin A1C [facility] Start: 05-05-2023 COVID-19 Vaccine ( season) COVID-19 Vaccine ( season) [facility] Start: 05-05-2023 Influenza vaccination [facility] Start: 12-29-2021 Hemoglobin A1c measurement A1C test (Diabetic or Prediabetic) [facility] Start: 11-29-2021 COVID-19 Vaccine (3 - Booster for Pfizer series) COVID-19 Vaccine (3 - Booster for Pfizer series) [facility] Start: 05-05-2021 Influenza vaccination Flu vaccine (#1) [facility] Start: 2009 Screening for malignant neoplasm of cervix [facility] Start: 2000 Screening for malignant neoplasm of cervix Pap smear [facility] Start: 1998 Hepatitis B vaccine (1 of 3 - Risk 3-dose series) Hepatitis B vaccine (1 of 3 - Risk 3-dose series) [facility] Start: 1997 Adult BMI Follow Up Plan Adult BMI Follow Up Plan [facility] Start: 1997 Diabetic foot examination Diabetic Foot Exam [facility] Start: 1997 Diabetic retinal exam Diabetic retinal exam [facility] Start: 1997 Urine screening for protein Diabetic microalbuminuria test [facility] Start: 1994 HIV screening HIV screen [facility] Start: 1991 Depression Screen Depression Screen [facility] Start: 1989 Diabetic foot examination Diabetic foot exam [facility] Start: 1989 Glaucoma screening Diabetes: Retinopathy Screening [facility] Start: 1989 Lipid panel Lipid screen [facility] Start: 1985 Pneumococcal 0-64 years Vaccine (1 of 2 - PPSV23) Pneumococcal 0-64 years Vaccine (1 of 2 - PPSV23) [facility] Start: 1979 Glaucoma screening Diabetic Ophthalmology Exam [facility] Start: 1979 Hepatitis C screening Hepatitis C screen [facility] Start: 1979 Screening for malignant neoplasm of colon [facility] Basic metabolic 2000 panel - Serum or Plasma Basic Metabolic Panel Lab Routine Lab max of 3 days, Daily, for lab use only until discontinued starting 12/21/2023, 3 completed [facility] Comment on above: Lab max of 3 days, Daily, for lab use on ly until discontinued starting 12/21/2023, 3 completed Bedside Glucose *Place/Obtain serum glucose if >500(>600 MRH) per glucometer. Bedside Glucose *Place/Obtain serum glucose if >500(>600 MRH) per glucometer. Point of Care Testing Routine 4X Daily (AC and at bedtime) until discontinued starting 12/21/2023, 10 completed [facility] Comment on above: 4X Daily (AC and at bedtime) until disco ntinued starting 12/21/2023, 10 completed CBC panel - Blood by Automated count CBC without diff Lab Routine Lab max of 3 days, Daily, for lab use only until discontinued starting 12/21/2023, 3 completed [employer] Comment on above: Lab max of 3 days, Daily, for lab use on ly until discontinued starting 12/21/2023, 3 completed CBC W Auto Different ial panel - Blood CBC auto differential Lab Routine Daily until discontinued starting 09/29/2021, 4 completed [facility] Work Phone: Comment on above: Daily until discontinued starting 2021, 4 completed End: 11-09-2024 Coccidiomyces Coccidiomyces Lab Routine Mediastinal lymphadenopathy Pulmonary nodule 1 Occurrences starting 11/10/2023 until 11/09/2024 [employer] Comment on above: 1 Occurrences starting 11/10/2023 until 11/09/2024 End: 02-07-2025 Creatinine includes GFR, serum Creatinine includes GFR, serum Lab Routine Mediastinal lymphadenopathy 1 Occurrences starting 02/08/2024 until 02/07/2025 [employer] Comment on above: 1 Occurrences starting 02/08/2024 until 02/07/2025 Culture, Anaerobic a nd Aerobic Culture, Anaerobic and Aerobic Microbiology [employer] Label Print 09/30/2021 9:50 AM EST [employer] Phone: Follicle stimulating hormone Follicle stimulating hormone Lab Routine Amenorrhea Ordered: 10/11/2023 [employer] Work Phone: Comment on above: Ordered: 10/11/2023 End: 11-09-2024 Fungitell Assay for (1,3)-B-D-Glucan Fungitell Assay for (1,3)-B-D-Glucan Lab Routine Mediastinal lymphadenopathy Pulmonary nodule 1 Occurrences starting 11/10/2023 until 11/09/2024 [employer] Phone: Comment on above: 1 Occurrences starting 11/10/2023 until 11/09/2024 Glucose [Mass/volume ] in Serum or Plasma POCT glucose Point of Care Testing Routine 4X Daily (AC & HS) until discontinued starting 09/29/2021 [employer] Phone: Comment on above: 4X Daily (AC & HS) until discontinued st arting 09/29/2021 End: 11-09-2024 Histoplasma antigen, serum Histoplasma antigen, serum Lab Routine Mediastinal lymphadenopathy Pulmonary nodule 1 Occurrences starting 11/10/2023 until 11/09/2024 [employer] Comment on above: 1 Occurrences starting 11/10/2023 until 11/09/2024 End: 11-09-2024 Histoplasma antigen, urine Histoplasma antigen, urine Microbiology Routine Mediastinal lymphadenopathy Pulmonary nodule 1 Occurrences starting 11/10/2023 until 11/09/2024 [employer] Comment on above: 1 Occurrences starting 11/10/2023 until 11/09/2024 End: 02-07-2025 Home O2 eval (desaturation screen) Home O2 eval (desaturation screen) Respiratory Care Routine Hypoxia Dyspnea on exertion 1 Occurrences starting 02/08/2024 until 02/07/2025 [employer] Comment on above: 1 Occurrences starting 02/08/2024 until 02/07/2025 End: 11-09-2024 Hyperssens pneu IGG Hyperssens pneu IGG Lab Routine Mediastinal lymphadenopathy Pulmonary nodule 1 Occurrences starting 11/10/2023 until 11/09/2024 [employer] Comment on above: 1 Occurrences starting 11/10/2023 until 11/09/2024 End: 10-01-2021 Initiate RT Protocol Initiate RT Protocol Respiratory Care Routine Continuous until discontinued starting 10/01/2021 [employer] Phone: Comment on above: Continuous until discontinued starting 0 10/01/2021 LH LH Lab Routine Amenorrhea Ordered: 10/11/2023 [facility] Comment on above: Ordered: 10/11/2023 Magnesium [Mass/volu me] in Serum or Plasma Magnesium Lab Routine Lab max of 3 days, Daily, for lab use only until discontinued starting 12/21/2023, 3 completed [employer] Comment on above: Lab max of 3 days, Daily, for lab use on ly until discontinued starting 12/21/2023, 3 completed Oxygen Therapy - Maintain SpO2: 90%; *PHYSICAL DIRECTOR Guidelines for O2: Yes; Document: \[email or web address]\ep ic\EPIC_Reference\Order s\Respiratory Care Guidelines\CPG Oxygen 2020.pdf Oxygen Therapy - Maintain SpO2: 90%; *PHYSICAL DIRECTOR Guidelines for O2: Yes; Document: \[email or web address]\epi c\EPIC_Reference\Orders\ Respiratory Care Guidelines\CPG Oxygen 2020.pdf Respiratory Care Routine As Needed until discontinued starting 12/20/2023 [employer] Phone: Comment on above: As Needed until discontinued starting Oxygen therapy [[facility] Data Set] Initiate Oxygen Therapy Protocol Respiratory Care Routine Daily until discontinued starting 09/28/2021 [employer] Phone: Comment on above: Daily until discontinued starting 2021 End: 10-01-2021 PERIPHERAL BLOOD SMEAR, PATH REVIEW [employer] Phone: Comment on above: One Time for 1 Occurrences starting 09/05 until 10/01/2021 Phosphate [Mass/volu me] in Serum or Plasma Phosphorus Lab STAT Tomorrow AM until discontinued starting 10/01/2021, 3 completed [employer] Phone: Comment on above: Tomorrow AM until discontinued starting 10/01/2021, 3 completed End: 04-09-2025 Polysomnography 4 or more parameters with PAP titration Polysomnography 4 or more parameters with PAP titration Sleep Center Routine JOSE M (obstructive sleep apnea) Chronic hypoxic respiratory failure ([facility]) Severe obesity (BMI >= 40) ([facility]) 1 Occurrences starting 04/09/2024 until 04/09/2025 [employer] Comment on above: 1 Occurrences starting 04/09/2024 until 04/09/2025 End: 09-29-2021 PREVIOUS SPECIMEN [employer] Phone: Comment on above: Once for 1 Occurrences starting 09/29/19 until 09/29/2021 End: 09-30-2021 PREVIOUS SPECIMEN [employer] Phone: Comment on above: Once for 1 Occurrences starting 09/30/19 until 09/30/2021 Progesterone Progesterone Lab Routine Amenorrhea Ordered: 10/11/2023 [facility] Comment on above: Ordered: 10/11/2023 End: 04-09-2025 PSG Diagnostic PSG Diagnostic Sleep Center Routine JOSE M (obstructive sleep apnea) Chronic hypoxic respiratory failure ([facility]) Severe obesity (BMI >= 40) ([facility]) 1 Occurrences starting 04/09/2024 until 04/09/2025 [employer] Phone: Comment on above: 1 Occurrences starting 04/09/2024 until 04/09/2025 Respiratory care evaluation only Respiratory care evaluation only Respiratory Care Routine As Needed until discontinued starting 10/01/2021 [employer] Phone: Comment on above: As Needed until discontinued starting THIN PREP TIS PAP AN D HR HPV DNA THIN PREP TIS PAP AND HR HPV DNA Pathology and Cytology Routine Well woman exam with routine gynecological exam Ordered: 08/06/2024 [facility] Work Phone: Comment on above: Ordered: 08/06/2024 End: 09-28-2021 Wound ostomy eval and treat Wound ostomy eval and treat Wound Ostomy Routine One Time for 1 Occurrences starting 09/28/2021 until 09/28/2021 [facility] Work Phone: Comment on above: One Time for 1 Occurrences starting 09/05 until 09/28/2021 Immunizations Immunization Date Immunization Notes Care Provider Fa cility 12-18-2023 Pneumococcal Conjuga te PCV 20 Diaz Dalton MD Work Phone: [facility] 04-09-2021 tetanus toxoid, redu ajay diphtheria toxoid, and acellular pertussis vaccine, adsorbed Barry Snowden NP Work Phone: [facility] 06-15-2020 influenza, injectabl e, quadrivalent, preservative free Barry Snowden NP Work Phone: [facility] 06-15-2020 influenza virus vacc ine, unspecified formulation Barry Snowden NP Work Phone: [facility] 05-20-2019 influenza, injectabl e, quadrivalent, preservative free Diaz Dalton MD Work Phone: [facility] 04-22-2017 influenza, injectabl e, quadrivalent, preservative free Diaz Dalton MD Work Phone: [facility] 05-13-2016 influenza, injectabl e, quadrivalent, preservative free Diaz Dalton MD Work Phone: [facility] 05-28-2015 influenza, injectabl e, quadrivalent, preservative free Diaz Dalton MD Work Phone: [facility] 10-06-2009 tetanus toxoid, adsorbed Nicky Dalton MD Work Phone: [facility] Payers Date Payer Category Payer Medicaid [id number] 1979 Unknown [id number] 2.16.8 40.1.639956.3.579.2.175 1979 Unknown [id number] 2.16.84 0.1.699295.3.579.2.593 1979 Unknown [id number] 2.16.84 0.1.983468.3.579.2.593 1979 Unknown [id number] 2.16.84 0.1.805642.3.579.2.593 1979 Unknown [id number] 2.16.84 0.1.886892.3.579.2.593 1979 Unknown [id number] 2.16.84 0.1.588895.3.579.2.593 1979 Unknown [id number] 2.16.84 0.1.068691.3.579.2.593 1979 Unknown [id number] 2.16.84 0.1.731056.3.579.2.593 1979 Unknown [id number] 2.16.8 40.1.852574.3.579.2.6 1979 Unknown [id number] 2.16.8 40.1.827111.3.579.2.6 1979 Unknown [id number] 2.16.8 40.1.625331.3.579.2.1285 1979 Unknown [id number] 2.16.8 40.1.059460.3.579.2.128 1979 Unknown [id number] 2.16.8 40.1.682504.3.579.2.1285 1979 Unknown [id number] 2.16.8 40.1.636551.3.579.2.1285 1979 Unknown [id number] 2.16.8 40.1.482861.3.579.2.1285 1979 Unknown [id number] 2.16.8 40.1.505349.3.579.2.1285 1979 Unknown [id number] 2.16.8 40.1.569605.3.579.2.1285 1979 Unknown [id number] 2.16.8 40.1.552436.3.579.2.1285 1979 Unknown [id number] 2.16.8 40.1.085498.3.579.2. 1979 Unknown [id number] 2.16.8 40.1.213018.3.579.2. 1979 Unknown [id number] 2.16.8 40.1.827696.3.579.2. 1979 Unknown [id number] 2.16.8 40.1.951542.3.579.2. 1979 Unknown [id number] 2.16.8 40.1.538542.3.579.2. 1979 Unknown [id number] 2.16. 840.1.220147.3.579.2.1285 1979 Unknown [id number] 2.16. 840.1.859204.3.579.2.1285 1979 Unknown [id number] 2.16. 840.1.353412.3.579.2.1285 1979 Unknown [id number] 2.16. 840.1.804750.3.579.2.1285 1979 Unknown [id number] 2.16. 840.1.913594.3.579.2.1285 1979 Unknown [id number] 2.16. 840.1.035513.3.579.2.1285 1979 Unknown [id number] 2.16. 840.1.082557.3.579.2.1285 1979 Unknown [id number] 2.16.8 40.1.039517.3.579.2.1285 1979 Unknown [id number] 2.16.8 40.1.023819.3.579.2.1285 1979 Unknown [id number] 2.16.8 40.1.723065.3.579.2.1285 1979 Unknown [id number] 2.16.8 40.1.420578.3.579.2.1285 1979 Unknown [id number] 2.16.8 40.1.405268.3.579.2.1285 1979 Unknown [id number] 2.16.8 40.1.457949.3.579.2.1285 1979 Unknown [id number] 2.16.8 40.1.349205.3.579.2.1285 1979 Unknown [id number] 2.16.8 40.1.246575.3.579.2.1285 1979 Unknown [id number] 2.16.8 40.1.435031.3.579.2.1285 1979 Unknown [id number] 2.16.8 40.1.031996.3.579.2.1285 1979 Unknown [id number] 2.16.8 40.1.540920.3.579.2.1285 1979 Unknown [id number] 2.16.8 40.1.416951.3.579.2.1285 1979 Unknown [id number] 2.16.8 40.1.460511.3.579.2.1285 1979 Unknown [id number] 2.16.8 40.1.753388.3.579.2.1285 1979 Unknown [id number] 2.16.8 40.1.053169.3.579.2.1285 1979 Unknown [id number] 2.16.8 40.1.712746.3.579.2.1285 1979 Unknown [id number] 2.16. 840.1.028368.3.579.2.1286 1979 Unknown [id number] 2.16. 840.1.540279.3.579.2.1286 1979 Unknown [id number] 2.16.8 40.1.170578.3.579.2.1285 1979 Unknown [id number] 2.16.8 40.1.015082.3.579.2.1285 1979 Unknown [id number] 2.16.8 40.1.705420.3.579.2.1285 1979 Unknown [id number] 2.16.8 40.1.540516.3.579.2.1258 1979 Unknown [id number] 2.16.8 40.1.712422.3.579.2.1258 1979 Unknown [id number] 2.16.8 40.1.616958.3.579.2.1258 1979 Unknown [id number] 2.16.8 40.1.293147.3.579.2.1258 1979 Unknown [id number] 2.16.8 40.1.626114.3.579.2.1258 1979 Unknown [id number] 2.16.8 40.1.070926.3.579.2.1258 1979 Unknown [id number] 2.16.8 40.1.093625.3.579.2.1258 1979 Unknown [id number] 2.16.8 40.1.056682.3.579.2.1258 1979 Unknown [id number] 2.16.8 40.1.539914.3.579.2.1258 1979 Unknown [id number] 2.16.8 40.1.894806.3.579.2.1258 1979 Unknown [id number] 2.16.8 40.1.595387.3.579.2.1258 1979 Unknown [id number] 2.16.84 0.1.067871.3.579.2.1258 1979 Unknown [id number] 2.16.84 0.1.140615.3.579.2.1258 1979 Unknown [id number] 2.16.84 0.1.553560.3.579.2.1258 1979 Unknown [id number] 2.16.84 0.1.626566.3.579.2.1258 1979 Unknown [id number] 2.16.84 0.1.205299.3.579.2.1258 1979 Unknown [id number] 2.16.84 0.1.096616.3.579.2.1258 1979 Unknown [id number] 2.16.84 0.1.335301.3.579.2.1258 1979 Unknown [id number] 2.16.84 0.1.950717.3.579.2.1258 1979 Unknown [id number] 2.16.84 0.1.200833.3.579.2.1258 1979 Unknown [id number] 2.16.84 0.1.834429.3.579.2.1258 1979 Unknown [id number] 2.16.84 0.1.216692.3.579.2.1259 1960 Medicaid [id number] 1. 2.840.305921.1.13.239.2.7.3.599445.315 Social History Date Type Detail Facility Start: 09-29-2021 End: 08-10-2023 Tobacco smoking status IAIS Never smoked tobacco [employer] Phone: Start: 09-29-2021 End: 08-10-2023 Tobacco use and exposure Smokeless tobacco non-user [employer] Phone: Start: 09-29-2021 End: 03-17-2025 Alcohol intake Lifetime non-drinker (finding) [employer] Phone: Start: 1980 Sex Assigned At Not on file [facility] Phone: Start: 10-05-2023 End: 03-14-2025 [facility] of [facility] Start: 10-05-2023 End: 03-14-2025 [facility] Start: 03-01-2023 Alcohol Comment Caffeine: 1-2 cups/day , mountain dew occasionally [facility] Start: 06-27-2024 End: 08-06-2024 Alcoholic beverage intake Current drinker of alcohol (finding) [facility] Has the [employer], or [employer] threatened to shut off services in your home in past 12Mo Yes [facility] Do you belong to any clubs or organizations such as gnosticism groups, unions, fraternal or athletic groups, or school groups? No [facility] Are you now , , , , never or living with a partner? [facility] How often to you hav e a drink containing alcohol? Never [facility] How many standard dr inks containing alcohol do you have on a typical day? Patient does not drink [facility] Do you feel stress - tense, restless, nervous, or anxious, or unable to sleep at night because your mind is troubled all the time - these days [OSQ] Only a little [facility] Start: 03-01-2019 Alcohol Comment occasionally-once a month [facility] Start: 04-09-2015 Sex Female (finding) [facility] Start: 09-05-2024 End: 01-03-2025 Alcoholic beverage intake Ex-drinker (finding) [facility] Procedure Code Equipment Code Equipment Origin al Text Equipment Identifier Dates USE ONE PEN NEED LE TO INJECT MEDICATION SIX TIMES A DAY [id number] Start: 06-22-2023 USE ONE PEN NEED LE TO INJECT MEDICATION SIX TIMES A DAY [id number] Start: 01-18-2024 Use as instructed [id number] Start: 01-08-2025 Goals Date Patient Goal Desired Activity /State [...] plans to return home with self care. Personal health goal Comment on above: Formatting of this n ote might be different from the original. Evaluation of progress towards goal: Home with family support. Clinical Notes 09-29-2021 to 04-14-2025 Romana Poole NP - 04/14/2025 1:40 PM EDTTelephone Encounter - Mila Cavanaugh - 04/07/2025 8:02 AM EDTTelephone Encounter - Mila Cavanaugh - 04/07/2025 8:02 AM EDTPatient InstructionsAttachments Note Date & Type Note Facility 04-14-2025 History of Present illness Narrative Reason for Appointment: Patient ID: Carissa Santos is a 44 y.o. female who presents [...] Oral, Daily cholecalciferol (Vitamin D-3) 50 MCG (1999) tablet Oral, Daily citalopram (CELEXA) 40 mg, Oral, Daily Continuous Glucose Community Relations Liaison (FreeStyle Crystal 3 [place]) device 1 Application, Does not apply, Continuous Continuous Glucose Sensor (FreeStyle Crystal 3 Sensor) [facility] USE TO MONITOR BLOOD SUGAR DIRECTED. CHANGE SENSOR EVERY 14 DAYS. Continuous Glucose Sensor (FreeStyle Crystal 3 Sensor) [facility] 1 Units, Does not apply, Weekly cyclobenzaprine [...] UNITS DAILY* insulin pen needle (Droplet Pen Coward) 32G x 4 mm [facility] Use as instructed lamoTRIgine (LAMICTAL) 200 mg, [...] heart failure with preserved ejection fraction (HFpEF) ([facility]) 04/06/2023 Equinus deformity of left foot 04/06/2023 Gastroesophageal reflux disease 04/06/2023 Genital warts 04/06/2023 Hot flashes due to menopause 04/06/2023 Type 2 diabetes mellitus with microalbuminuria, with long-term current use of insulin ([facility]) 04/06/2023 Internal derangement of left shoulder 04/06/2023 Irritable bowel syndrome with diarrhea 04/06/2023 Mild developmental delay 09/29/2021 Migraine without aura and without status migrainosus, not intractable 04/06/2023 Mild episode of recurrent major depressive disorder 04/06/2023 Class 3 severe obesity due to excess calories with serious comorbidity and body mass index (BMI) of 40.0 to 44.9 in adult ([facility]) 11/21/2022 Type 2 diabetes mellitus with polyneuropathy ([facility]) 06/10/2021 Obstructive sleep apnea syndrome 09/30/2009 Osteoarthritis of knee 04/06/2023 Overactive bladder 04/06/2023 Panic disorder without agoraphobia 11/12/2009 Dyslipidemia 04/22/2010 Spondylosis without myelopathy 08/10/2010 Obesity hypoventilation syndrome ([facility]) 01/04/2024 Benign essential hypertension 01/04/2024 Right carpal tunnel syndrome 01/04/2024 Type 2 diabetes mellitus with hyperglycemia, with long-term current use of insulin ([facility] [facility] 02/12/2024 Moderate persistent asthma without complication ([facility]) 02/19/2024 Pulmonary hypertension ([facility]) 08/06/2024 Dehydration 10/28/2024 Nausea & vomiting 10/28/2024 Encounter for long-term (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 medications 02/10/2025 Resolved Ambulatory Problems Diagnosis Date Noted Acute kidney injury (DREW) with acute tubular necrosis (ATN) 09/30/2021 Acute pain of left shoulder 04/06/2023 Shoulder joint pain 04/06/2021 Carpal tunnel syndrome of left wrist 04/06/2023 Convulsions in the ([facility]) 09/30/2009 Cubital tunnel syndrome on left 11/04/2022 Fecal incontinence 06/22/2016 High anion gap metabolic acidosis 09/30/2021 Hyperglycemia 03/01/2019 Mild intellectual disability 09/30/2009 Other chronic pain 04/06/2023 Pneumonia due to infectious organism 09/29/2021 Poorly controlled diabetes mellitus ([facility]) 08/10/2015 Normal gynecologic examination 06/09/2015 Missed period 04/06/2023 DKA, type 1, not at goal ([facility]) 09/27/2021 Type 2 diabetes mellitus ([facility]) 09/30/2009 Cavitary lesion of lung 08/10/2023 Other chest pain 08/10/2023 Hypoxia 01/04/2024 Chronic hypoxic respiratory failure ([facility]) 02/19/2024 Acute pain of right knee 05/29/2024 Past Medical History: Diagnosis Date Ankle fracture Anxiety and depression At low risk for fall Bilateral leg edema Chest pain, central Chronic left shoulder pain Chronic pain Chronic respiratory failure ([facility]) Epilepsy ([facility]) GERD (gastroesophageal reflux disease) History of being hospitalized History of medical problems Hyperlipidemia Insomnia, persistent MDD (major depressive disorder), recurrent episode, mild Morbid obesity with BMI of 40.0-44.9, adult ([facility]) Nocturnal hypoxemia Nonsmoker OAB (overactive bladder) Obesity JOSE M (obstructive sleep apnea) Postoperative urinary retention Primary osteoarthritis of left knee Seasonal allergies Type 2 diabetes mellitus with diabetic polyneuropathy, with long-term current use of insulin ([facility]) Type 2 diabetes mellitus without complication ([facility]) Vitamin D deficiency HISTORY PAST MEDICAL HISTORY SOCIAL HISTORY Past Medical History: Diagnosis Date Ankle fracture Anxiety and depression At low risk for fall Bilateral leg edema Chest pain, central Chronic left shoulder pain Chronic pain Chronic respiratory failure ([facility]) Dyslipidemia Epilepsy ([facility]) Childhood epilepsy JOHN (generalized anxiety disorder) Genital warts GERD (gastroesophageal reflux disease) History of being hospitalized pneumonia, diabetes, infection [10/29/21-11/05/21] History of medical problems mild mental retardation Hyperlipidemia Insomnia, persistent Irritable bowel syndrome with diarrhea MDD (major depressive disorder), recurrent episode, mild Migraine without aura and without status migrainosus, not intractable Morbid obesity with BMI of 40.0-44.9, adult ([facility]) Nocturnal hypoxemia Nonsmoker OAB (overactive bladder) Obesity JOSE M (obstructive sleep apnea) Postoperative urinary retention Primary osteoarthritis of left knee Seasonal allergies Type 2 diabetes mellitus with diabetic polyneuropathy, with long-term current use of insulin ([facility]) Type 2 diabetes mellitus with hyperglycemia, with long-term current use of insulin ([facility]) Type 2 diabetes mellitus without complication (HCC) Vitamin D deficiency Social History Tobacco Use [...] 12/29/2017 Diagnostic laparoscopy LAPAROTOMY OVARIAN CYSTECTOMY 03/31/2023 [place] ARTHROCENTESIS ASPIR&/INJ MAJOR JT/BURSA W/O US Right [...] nursing note reviewed. Exam conducted with a director of human resources present. Vitals: Estimated body mass index is 39.07 kg/m as calculated from the following: Height [...] genital warts. Patient to setup date with Accounts Payable Payroll Coordinator prior to leaving office today. Documented by Romana Poole NP on behalf of: Feliz Benz DO documented in this encounter [facility] 04-07-2025 Telephone encounter Note She called and lm noting not feeling well this morning; she cx her PT for today. [facility] 04-07-2025 Miscellaneous Notes She called and lm noting not feeling well this morning; she cx her PT for today. documented in this encounter [facility] 03-28-2025 Telephone encounter Note Called and spoke to Carissa, let her know Dr Jackson's recommendation. She will continue physical therapy. She will let the therapist know she has been having a lot of pain and see if there is anything different they can try. Recommended taking TYL/IBU before therapy and to continue icing/elevating. Will call back with any more issues. [facility] 03-28-2025 Miscellaneous Notes Called and spoke to Carissa, let her know Dr Jackson's recommendation. She will continue physical therapy. She will let the therapist know she has been having a lot of pain and see if there is anything different they can try. Recommended taking TYL/IBU before therapy and to continue icing/elevating. Will call back with any more issues. Dr. Jackson said that if that knee does need surgery, he is unable to do surgery until that knee is moving. He strongly advises that she goes to physical therapy. Patient called stating she has physical therapy today in [place]. This would be the third session. She fels she cannot do it. She is in a lot of pain after. [phone] Renetta & [address]. Jackson, It sounds like this pt is not tolerating recommend therapy for her knee, Possible scope? Any recommendations.? Carissa called and said that she went to therapy twice and said that the pain is so bad afterwards she can't stand it, she is scheduled for tomorrow doesn't want to go because of the pain. She said that its still popping please advise She is scheduled with Dr. Jackson April 22, 2025. documented in this encounter [facility] 03-28-[address] Jackson said that if that knee does need surgery, he is unable to do surgery until that knee is moving. He strongly advises that she goes to physical therapy. [facility] 03-28-2025 Telephone encounter Note She called noting she has a call into Dr. Jackson, due to when she has completed PT so far, she feels 2x's worse than when she started. Pending call back, she said she'll keep her next PT scheduled 04/02; will contact if cx is needed. [facility] 03-28-2025 Miscellaneous Notes She called noting she has a call into Dr. Jackson, due to when she has completed PT so far, she feels 2x's worse than when she started. Pending call back, she said she'll keep her next PT scheduled 04/02; will contact if cx is needed. documented in this encounter [facility] 03-28-2025 Telephone encounter Note Patient called stating she has physical therapy today in [place]. This would be the third session. She fels she cannot do it. She is in a lot of pain after. [phone] [facility] 03-27-2025 Telephone encounter Note Renetta & Dr. Jackson, It sounds like this pt is not tolerating recommend therapy for her knee, Possible scope? Any recommendations.? [facility] Work Phone: 03-27-2025 Telephone encounter Note Carissa called and said that she went to therapy twice and said that the pain is so bad afterwards she can't stand it, she is scheduled for tomorrow doesn't want to go because of the pain. She said that its still popping please advise She is scheduled with Dr. Jackson April 22, 2025. [facility] 07-21-2025 Miscellaneous Notes Patient called office requesting a refill of her Trelegy 200 to be sent to [facility], ad copy writer asked patient to confirm the phone number for [facility] as two [facility] are listed in her chart patient confirmed phone number for the pharmacy located in [place]. documented in this encounter [facility] 03-24-2025 Telephone encounter Note Patient called office requesting a refill of her Trelegy 200 to be sent to [facility], ad copy writer asked patient to confirm the phone number for [facility] as two [facility] are listed in her chart patient confirmed phone number for the pharmacy located in [place]. [facility] 03-17-2025 History of Present illness Narrative Reason for Appointment: Patient ID: Carissa Santos is a 44 y.o. female who presents for Genital Warts Patient presents today for Consult appointment. MEDICATIONS Current Outpatient Medications Medication Instructions acyclovir [...] Oral, Daily cholecalciferol (Vitamin D-3) 50 MCG (1999) tablet Oral, Daily citalopram (CELEXA) 40 mg, Oral, Daily Continuous Glucose Community Relations Liaison (FreeStyle Crystal 3 [place]) device 1 Application, Does not apply, Continuous Continuous Glucose Sensor (FreeStyle Crystal 3 Sensor) [facility] USE TO MONITOR BLOOD SUGAR DIRECTED. CHANGE SENSOR EVERY 14 DAYS. cyclobenzaprine (FLEXERIL) 10 mg, Oral, 3 times daily PRN dicyclomine (BENTYL) 20 mg, Oral, 4 times daily PRN empagliflozin (JARDIANCE) 25 mg, Oral, Daily fluconazole (DIFLUCAN) 150 mg, Once furosemide (LASIX) 40 mg, Oral, Daily insulin aspart FlexPen (NovoLOG) 100 UNIT/ML pen INJECT SUBCUTANEOUSLY THREE TIMES A DAY PER SLIDING SCALE; *30 TO 40 UNITS DAILY* insulin pen needle (Droplet Pen Coward) 32G x 4 mm [facility] Use as instructed lamoTRIgine (LAMICTAL) 200 mg, [...] powder 1 puff, Daily RT Trulicity 0.75 mg, Subcutaneous, Weekly ALLERGIES Allergies Allergen Reactions Sulfamethoxazole-Trimethoprim Hives and Itching PROBLEMS Active Ambulatory Problems Diagnosis Date Noted Allergic rhinitis due to allergen 10/01/2009 JOHN (generalized anxiety disorder) 10/01/2009 Contracture, unspecified ankle 04/06/2023 Chronic heart failure with preserved ejection fraction (HFpEF) ([facility]) 04/06/2023 Equinus deformity of left foot 04/06/2023 Gastroesophageal reflux disease 04/06/2023 Genital warts 04/06/2023 Hot flashes due to menopause 04/06/2023 Type 2 diabetes mellitus with microalbuminuria, with long-term current use of insulin ([facility]) 04/06/2023 Internal derangement of left shoulder 04/06/2023 Irritable bowel syndrome with diarrhea 04/06/2023 Mild developmental delay 09/29/2021 Migraine without aura and without status migrainosus, not intractable 04/06/2023 Mild episode of recurrent major depressive disorder 04/06/2023 Class 3 severe obesity due to excess calories with serious comorbidity and body mass index (BMI) of 40.0 to 44.9 in adult ([facility]) 11/21/2022 Type 2 diabetes mellitus with polyneuropathy ([facility]) 06/10/2021 Obstructive sleep apnea syndrome 09/30/2009 Osteoarthritis of knee 04/06/2023 Overactive bladder 04/06/2023 Panic disorder without agoraphobia 11/12/2009 Dyslipidemia 04/22/2010 Spondylosis without myelopathy 08/10/2010 Obesity hypoventilation syndrome ([facility]) 01/04/2024 Benign essential hypertension 01/04/2024 Right carpal tunnel syndrome 01/04/2024 Type 2 diabetes mellitus with hyperglycemia, with long-term current use of insulin ([facility]) 02/12/2024 Moderate persistent asthma without complication ([facility]) 02/19/2024 Pulmonary hypertension ([facility]) 08/06/2024 Dehydration 10/28/2024 Nausea & vomiting 10/28/2024 Encounter for long-term (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 medications 02/10/2025 Resolved Ambulatory Problems Diagnosis Date Noted Acute kidney injury (DREW) with acute tubular necrosis (ATN) 09/30/2021 Acute pain of left shoulder 04/06/2023 Shoulder joint pain 04/06/2021 Carpal tunnel syndrome of left wrist 04/06/2023 Convulsions in the ([facility]) 09/30/2009 Cubital tunnel syndrome on left 11/04/2022 Fecal incontinence 06/22/2016 High anion gap metabolic acidosis 09/30/2021 Hyperglycemia 03/01/2019 Mild intellectual disability 09/30/2009 Other chronic pain 04/06/2023 Pneumonia due to infectious organism 09/29/2021 Poorly controlled diabetes mellitus ([facility]) 08/10/2015 Normal gynecologic examination 06/09/2015 Missed period 04/06/2023 DKA, type 1, not at goal ([facility]) 09/27/2021 Type 2 diabetes mellitus ([facility]) 09/30/2009 Cavitary lesion of lung 08/10/2023 Other chest pain 08/10/2023 Hypoxia 01/04/2024 Chronic hypoxic respiratory failure ([facility]) 02/19/2024 Acute pain of right knee 05/29/2024 Past Medical History: Diagnosis Date Ankle fracture Anxiety and depression At low risk for fall Bilateral leg edema Chest pain, central Chronic left shoulder pain Chronic pain Chronic respiratory failure ([facility]) Epilepsy ([facility]) GERD (gastroesophageal reflux disease) History of being hospitalized History of medical problems Hyperlipidemia Insomnia, persistent MDD (major depressive disorder), recurrent episode, mild Morbid obesity with BMI of 40.0-44.9, adult ([facility]) Nocturnal hypoxemia Nonsmoker OAB (overactive bladder) Obesity JOSE M (obstructive sleep apnea) Postoperative urinary retention Primary osteoarthritis of left knee Seasonal allergies Type 2 diabetes mellitus with diabetic polyneuropathy, with long-term current use of insulin ([facility]) Type 2 diabetes mellitus without complication ([facility]) Vitamin D deficiency HISTORY PAST MEDICAL HISTORY SOCIAL HISTORY Past Medical History: Diagnosis Date Ankle fracture Anxiety and depression At low risk for fall Bilateral leg edema Chest pain, central Chronic left shoulder pain Chronic pain Chronic respiratory failure ([facility]) Dyslipidemia Epilepsy ([facility]) Childhood epilepsy JOHN (generalized anxiety disorder) Genital warts GERD (gastroesophageal reflux disease) History of being hospitalized pneumonia, diabetes, infection [10/29/21-11/05/21] History of medical problems mild mental retardation Hyperlipidemia Insomnia, persistent Irritable bowel syndrome with diarrhea MDD (major depressive disorder), recurrent episode, mild Migraine without aura and without status migrainosus, not intractable Morbid obesity with BMI of 40.0-44.9, adult ([facility]) Nocturnal hypoxemia Nonsmoker OAB (overactive bladder) Obesity JOSE M (obstructive sleep apnea) Postoperative urinary retention Primary osteoarthritis of left knee Seasonal allergies Type 2 diabetes mellitus with diabetic polyneuropathy, with long-term current use of insulin ([facility]) Type 2 diabetes mellitus with hyperglycemia, with long-term current use of insulin ([facility]) Type 2 diabetes mellitus without complication ([facility]) Vitamin D deficiency Social History [...] 12/29/2017 Diagnostic laparoscopy LAPAROTOMY OVARIAN CYSTECTOMY 03/31/2023 [place] ARTHROCENTESIS ASPIR&/INJ MAJOR JT/BURSA W/O US Right Arthrocentesis of the right knee joint REQUEST FOR SCREENING COLONOSCOPY 04/01/2019 Colonoscopy, screening SALPINGECTOMY Bilateral 03/31/2023 FERREIRA WART REMOVAL 08/14/2015 genital wart removal TONSILLECTOMY REVIEW OF SYSTEMS Review of Systems: Review of Systems Constitutional: Negative. HENT: Negative. Eyes: Negative. Respiratory: Negative. Cardiovascular: Negative. Gastrointestinal: Negative. Genitourinary: Negative. Musculoskeletal: Negative. Skin: Negative. Neurological: Negative. All other systems reviewed and are negative. Hematological: Negative. Endocrine: Negative. Allergic/Immunologic: Negative. OBJECTIVE Objective: Physical Exam Constitutional: Appearance: Normal appearance. She is well-developed. Genitourinary: Vulva normal. Cardiovascular: Rate and Rhythm: Normal rate and [...] nursing note reviewed. Exam conducted with a director of human resources present. Vitals: Estimated body mass index is 40.25 kg/m as calculated from the following: Height as of 02/10/25: 5' 1 . Weight as of this encounter: 213 lb. BP: 120/70 No LMP recorded. Patient is premenopausal. ASSESSMENT & PLAN ICD-10-CM 1. Genital warts A63.0 Patient presents today to have TCA treatment on genital warts. Patient tolerated procedure well and will present to office if areas return. Patient to ensure that she is scheduled for her annual appointment. Documented by Arlene Mullen LPN on behalf of: Feliz Benz DO documented in this encounter [facility] 03-14-2025 History of Present illness Narrative Images from the original note were not included. HISTORY OF PRESENT ILLNESS: EST PT Carissa Santos is an 44 y.o. @ female. (EST PT) - RECHECK LT KNEE PAIN - S/P MRI DONE AT [facility] ON 03/04/25 XRAY LT KNEE EPIC 02/25/25 MRI LT KNEE 03/04/25 [facility] C/O POPPING- CONSTANT PAIN- PAIN ANTERIOR KNEE- INCREASE PAIN WITH POPPING- +INSTABILITY- PAIN IS CONSTANT- WAKES HS- +TYLENOL/MOTRIN - PT STATES SHE TRIED WALKER; MINIMAL RELIEF- STATES SHE LEFT WALKER AT HER OLD HOME; RECENTLY MOVED [place]: PT FELL AND LANDED ON KNEE~1.5 MO AGO- DR [place]; WALKER ALLERGIES: Allergies Allergen Reactions Sulfamethoxazole-Trimethoprim Hives and Itching HOME MEDICATIONS: Current Outpatient Medications Medication Instructions acyclovir (Zovirax) [...] Oral, Daily cholecalciferol (Vitamin D-3) 50 MCG (2000 [place]) tablet Oral, Daily citalopram (CELEXA) 40 mg, Oral, Daily Continuous Glucose Community Relations Liaison (FreeStyle Crystal 3 [place]) device 1 Application, Does not apply, Continuous Continuous Glucose Sensor (FreeStyle Crystal 3 Sensor) [facility] USE TO MONITOR BLOOD SUGAR DIRECTED. CHANGE SENSOR EVERY 14 DAYS. cyclobenzaprine (FLEXERIL) 10 mg, Oral, 3 times daily PRN dicyclomine (BENTYL) 20 mg, Oral, 4 times daily PRN empagliflozin (JARDIANCE) 25 mg, Oral, Daily fluconazole (DIFLUCAN) 150 mg, Once furosemide (LASIX) 40 mg, Oral, Daily insulin aspart FlexPen (NovoLOG) 100 UNIT/ML pen INJECT SUBCUTANEOUSLY THREE TIMES A DAY PER SLIDING SCALE; *30 TO 40 UNITS DAILY* insulin pen needle (Droplet Pen Coward) 32G x 4 mm [facility] Use as instructed lamoTRIgine (LAMICTAL) 200 mg, [...] powder 1 puff, Daily RT Trulicity 0.75 mg, Subcutaneous, Weekly PHYSICAL EXAM: Knee Musculoskeletal Exam Gait Limp: left Inspection Leg length disparity: no discrepancy Left Erythema: none Effusion: mild Edema: mild Ecchymosis: none Deformity: none Alignment: normal Palpation Left Increased warmth: none Masses: none Tenderness: present Lateral joint line: mild Medial joint line: moderate Range of Motion Left Left knee range of motion is normal and full. Active extension: 0 Passive extension: 0 Active flexion: 125 Passive flexion: 125 Range of motion additional comments: + PAIN ON TERMINAL FLEXION AND EXTENSION Strength Left Extension: 4+/5. Extension is affected by pain. Flexion: 4+/5. Flexion is affected by pain. Instability Left Instability signs: none - stable Varus stress grade: normal Valgus stress grade: normal Anterior drawer: normal Medial Marianne test: positive Lateral Marianne test: positive Neurovascular Left Left knee neurovascular exam is normal. Pulses - PT: normal Posterior tibial: 2+ Capillary refill: warm and well-perfused Special Signs Left Left knee special signs are normal. Patellar apprehension: none General Constitutional: appears stated age Labored breathing: no Psychiatric: normal mood and affect Neurological: alert Skin: intact Lymphadenopathy: none Vitals: There is no height or weight on file to calculate BMI. Tobacco Use: Low Risk (03/14/2025) Patient History Smoking Tobacco Use: Never Smokeless Tobacco Use: Never Passive Exposure: Not on file Alcohol Use: Not At Risk (12/20/2023) Received from [facility] Frequency of Alcohol Consumption: Never Average Number of Drinks: Patient does not drink Frequency of Binge Drinking: Never IMAGING: Procedures Orders Placed This Encounter Procedures Ambulatory referral to Physical Therapy Standing Status: Future Number of Occurrences: 1 Expected Date: 03/14/2025 Expiration Date: 09/14/2025 Referral Priority: Routine Referral Type: Consultation Referral Reason: Consult and Treat Referred to Provider: Donny Dominguez, MELODY Requested Specialty: Physical Therapy Number of Visits Requested: 1 ASSESSMENT: ICD-10-CM 1. Acute medial meniscus tear of left knee, initial encounter S83.242A 2. Acute pain of left knee M25.562 Ambulatory referral to Physical Therapy PLAN: We discussed her case at length we recommended physical therapy she may have a degenerative meniscus tear. We have recommended physical therapy for her legs. We will see her back in 1 month to reassess if her symptoms persist or worsen we may scope her left knee for medial meniscus tear. Questions answered in laymen terms at the bedside. The diagnosis, home exercise plan and any ongoing restrictions/ recommendations reviewed. If unable to be reached in office, I recommend evaluation at nearest Emergency Room if any symptoms worsened or new symptoms develop for requiring urgent evaluation. documented in this encounter [facility] 03-13-2025 Miscellaneous Notes School Psychology Professor called [facility] and spoke with Autumn, ad copy writer asked Autumn to verify if patient qualified for POC, per Autumn, Medicaid does not cover POCs. School Psychology Professor verbalized understanding. documented in this encounter [facility] 03-13-2025 Telephone encounter Note School Psychology Professor called [facility] and spoke with Autumn, ad copy writer asked Autumn to verify if patient qualified for POC, per Autumn, Medicaid does not cover POCs. School Psychology Professor verbalized understanding. [facility] 03-13-2025 History of Present illness Narrative Images from the original note were not included. Images from the original note were not included. [facility] Pulmonary And Sleep Progress Note Patient - Carissa Santos Age - 44 y.o. - 1980 ASSESSMENT Chronic hypoxic respiratory failure -2L with exertion and 3L with sleep Right upper lobe pulmonary nodule 1.5cm stable x 2 years. -negative on PET. Mild enlarged station [address] LN with SUV 2.8 Mild pulmonary hypertension -right heart catheterization June 2024. (46/23 mPAP 33, PCWP 15, normal CO/ CI) Isolated severely reduced DLCO on PFT -no evidence of ILD on prior CT imaging Suspected obstructive lung disease with symptomatic improvement on Trelegy Obesity with BMI 43 Developmental delay PLAN Cardiac catheterization data reviewed. She remains on Trelegy, p.r.n. albuterol inhaler PFT data reviewed today which continues to show restrictive disease related to body habitus. DLCO is actually improved from year prior Data from PAP machine reviewed and demonstrates poor compliance. This would be highly advised given the setting of mild pulmonary hypertension. This was emphasized today Overall pulmonary hypertension advised to be optimized with regular use of her PAP machine Continue Trelegy. Advised to do albuterol aerosols 1st thing in the morning prior to Trelegy use and then again late afternoon, early evening given her increasing shortness of breath with exertion with the weather change Most recent chest x-ray reviewed and unchanged Daily walking and daily exercise program advised Will reach out to [facility] and inquire regarding POC and if issue with her not being able to obtain She expresses plan to pursue disability Return to clinic in 6 months or earlier if needed WALI Ferrer presents for follow-up of her shortness of breath with exertion, chronic hypoxic respiratory failure, asthma, severely impaired DLCO on PFT data. There has been no evidence interstitial lung disease on CT scan of the chest. Echocardiogram was obtained in May and cardiac catheterization was done in June. Right heart catheterization pressure was done with mean PA P of 33 and wedge pressure of 15. This was performed after last office visit. She feels that in the last month her shortness of breath has been more noticeable mostly with exertion. She has a appreciated this with the weather change. She does know if she misses the Trelegy it makes a significant difference. She has not been using p.r.n. rescue albuterol inhaler or aerosols. She does confirm that she has plenty of albuterol HFA and a nebulizer and albuterol aerosol solution. She recently moved and has not set up the nebulizer machine. She has not found a table to set near her bedside for her CPAP machine so has not been using it. Download is reviewed today and demonstrates only 4 days of usage in the last 30. She has been using and benefitting from her supplemental oxygen therapy. Since last office visit she did get the portable oxygen tanks but still does not have a portable oxygen concentrator. She was requesting this today. No new cough, wheeze, congestion. She has not had any respiratory infections since last office visit. No palpitations or syncopal episodes. No new lower extremity edema VITALS BP 131/77 (BP Site: Left Arm, BP Postition: Sitting) Pulse 81 Ht 154.9 cm (5' 1 ) Wt 97.1 kg (214 lb) SpO2 100% Comment: 3 liters BMI 40.43 kg/m Exam General: Alert, oriented, no acute distress, nontoxic, well nourished HEENT: Moist mucosal membranes, no oral lesions or oral thrush, trachea midline Chest: Clear to auscultation bilaterally without any crackles, wheezes, rhonchi. Normal AP diameter. CV: Regular rate regular rhythm Extremities: No edema, erythema, distal cyanosis, clubbing Integumentary: Warm and dry. No rash or lesion Neuro: No lateralizing deficits. No tremors Meds Medications Reviewed. Lab Results PFT Results Radiology Dr. Lindsay Arrieta DO. [facility] Pulmonary [facility] Critical Care Office: [phone] documented in this encounter [facility] 03-11-2025 Miscellaneous Notes Patient LVM w/no information. School Psychology Professor LVM for patient to call back. documented in this encounter [facility] 03-11-2025 Telephone encounter Note Patient LVM w/no information. School Psychology Professor LVM for patient to call back. [facility] 03-05-2025 Miscellaneous Notes [facility] - PHARMACY [place] [id number] New referral received by [facility] Medication Management for diabetes. Patient was contacted to schedule appointment at [facility]ication [facility] [place] ([facility]). This was my first attempt to reach the patient and was able to schedule the patient on 03/20 at 1:30 . Patient will be asked to bring PPMM Additional Info: Medication List, Blood Glucose Meter, and Blood Sugar Log. Referral added to spreadsheet. Referring provider: Katelyn Rceio MD Patient's watch caser, Gosia, called to ask if patient's PCP can be kept in the loop on patient's appts since the referral came from cardiology. School Psychology Professor confirmed that PCP is Diaz Dalton and advised that PPMM will keep him in the loop. Per conversation with [facility], DM referral should come from PCP anyway. School Psychology Professor sent referral and renewal CA to PCP. documented in this encounter [facility] 03-05-2025 Telephone encounter Note [facility] MEDICATION MANAGEMENT [address] [place] [address] DR [address]Z [facility] [phone] New referral received by [facility] Medication Management for diabetes. Patient was contacted to schedule appointment at [facility] [place] ([facility]). This was my first attempt to reach the patient and was able to schedule the patient on 03/20 at 1:30 . Patient will be asked to bring PPMM Additional Info: Medication List, Blood Glucose Meter, and Blood Sugar Log. Referral added to spreadsheet. Referring provider: Katelyn Recio MD [facility] 03-05-2025 Telephone encounter Note Patient's watch caser, Gosia, called to ask if patient's PCP can be kept in the loop on patient's appts since the referral came from cardiology. School Psychology Professor confirmed that PCP is Diaz Dalton and advised that PPMM will keep him in the loop. Per conversation with [facility] Ly DM referral should come from PCP anyway. School Psychology Professor sent referral and renewal CA to PCP. [facility] 03-05-2025 Telephone encounter Note Reviewed MRI, Possible Meniscus tear. No fracture... I want her to see Dr. Jackson for eval, given her pain and symptoms... please cancel appt with me and schedule with Dr. Jackson within the next week or 2 [facility] 03-05-2025 Miscellaneous Notes Reviewed MRI, Possible Meniscus tear. No fracture... I want her to see Dr. Jackson for des, given her pain and symptoms... please cancel appt with me and schedule with Dr. Jackson within the next week or 2 I called Carissa and explained to her that we didn't want to use narcotics at this time, but she can take 600 mg Mortrin 3x a day and supp with Tylenol between. Advise Non weight bearing on that leg until we got the MRI, she said that she hasn't heard from [facility] for the MRI yet, I told her to give them a call and see if she can get that started. She said she will call them, told if she had any other questions or needed anything that we were here until 3:00pm today I do not recommend anything narcotic at this time.. she can take motrin 600mg 3 times a day and Tylenol as directed... she is to be using a walker with no weight bearing if painful pending MRI. ( Knee pain present for 1 month with a fall) if fever develops or symptoms worsen recommend ER. Carissa was here 02/25/25 seen Cullen, she called this morning wanting to know if we could call her in something for pain, she said that she can't sleep her pain is so bad. Please advise she uses [facility] documented in this encounter [facility] 03-05-2025 Miscellaneous Notes Images from the original note were not included. LMOM for pts watch caser Gosia ([id number]) to update on LLDs PPMM recommendation. School Psychology Professor asked for r/c to office for any further questions. documented in this encounter [facility] 03-05-2025 Telephone encounter Note Images from the original note were not included. [facility] 03-05-2025 Telephone encounter Note LMOM for pts watch caser Gosia (ok-[email or web address]) to update on LLDs PPMM recommendation. School Psychology Professor asked for r/c to office for any further questions. [facility] 02-28-2025 Telephone encounter Note I called Carissa and explained to her that we didn't want to use narcotics at this time, but she can take 600 mg Mortrin 3x a day and supp with Tylenol between. Advise Non weight bearing on that leg until we got the MRI, she said that she hasn't heard from [facility] for the MRI yet, I told her to give them a call and see if she can get that started. She said she will call them, told if she had any other questions or needed anything that we were here until 3:00pm today T [facility] 02-27-2025 Telephone encounter Note I do not recommend anything narcotic at this time.. she can take motrin 600mg 3 times a day and Tylenol as directed... she is to be using a walker with no weight bearing if painful pending MRI. ( Knee pain present for 1 month with a fall) if fever develops or symptoms worsen recommend ER. [facility] 02-27-2025 Telephone encounter Note Carissa was here 02/25/25 seen Cullen, she called this morning wanting to know if we could call her in something for pain, she said that she can't sleep her pain is so bad. Please advise she uses [facility] T [facility] 02-25-2025 History of Present illness Narrative Images from the original note were not included. Orthopedic Office note: NAME: Carissa Santos : 1980 EST PT WITH NEW C/O LT KNEE PAIN- PT FELL AND LANDED ON KNEE~1MO AGO- DR DALTON [place]; WALKER XRAY LT KNEE TODAY EPIC 02/25/25 C/O POPPING- CONSTANT PAIN- PAIN ANTERIOR KNEE- INCREASE PAIN WITH POPPING- +INSTABILITY- PAIN IS CONSTANT- WAKES HS- +TYLENOL/MOTRIN - PT STATES SHE TRIED WALKER; MINIMAL RELIEF- STATES SHE LEFT WALKER AT HER OLD HOME; RECENTLY MOVED Knee Musculoskeletal Exam Gait Antalgic: left Limp: left Inspection Leg length disparity: no discrepancy Left Erythema: none Effusion: mild Edema: none Ecchymosis: none Deformity: none Alignment: normal Palpation Left Increased warmth: none Masses: none Tenderness: present Lateral joint line: mild Medial joint line: moderate Range of Motion Left Left knee range of motion is normal and full. Active extension: 0 Passive extension: 0 Active flexion: 125 Passive flexion: 125 Range of motion additional comments: + PAIN ON TERMINAL FLEXION AND EXTENSION Strength Left Extension: 4+/5. Extension is affected by pain. Flexion: 4+/5. Flexion is affected by pain. Instability Left Instability signs: none - stable Varus stress grade: normal Valgus stress grade: normal Anterior drawer: normal Medial Marianne test: positive Lateral Marianne test: positive Neurovascular Left Left knee neurovascular exam is normal. Pulses - PT: normal Posterior tibial: 2+ Capillary refill: warm and well-perfused Special Signs Left Left knee special signs are normal. Patellar apprehension: none General Constitutional: appears stated age Labored breathing: no Psychiatric: normal mood and affect Neurological: alert Skin: intact Lymphadenopathy: none Orders Placed This Encounter Procedures XR knee 1 or 2 views left Views: AP Views: Lateral Reason for exam:: PAIN Is the patient ?: No MR knee left wo IV contrast MRI LT knee w/o at [facility]. Orbits if needed. please push images to NOMS pacs Standing Status: Future Expected Date: 02/25/2025 Expiration Date: 02/25/2026 Is the patient ?: No Reason for exam:: Internal derangement LT knee Procedures Results - Imaging: - X-ray of the left knee: No evidence of fracture ICD-10-CM 1. Internal derangement of left knee M23.92 MR knee left wo IV contrast 2. Acute pain of left knee M25.562 XR knee 1 or 2 views left F/U Dr. Jackson / Cullen s/p MRI to discuss need for possible: R/o medial meniscus tear/ chondral contusion Surgical and non surgical tx options discussed with conservative measures reviewed. Recommend ICE/ ELEVATION, continued activity modification in interim. Pt would consider surgical intervention to possibly improve symptoms. Assessment & Plan Left knee pain. X-ray discussed at bedside. No evidence of fracture. Symptoms present for 1 month after a fall. She notes sharp, stabbing pain catching, locking at times. Exam concerning for possible medial meniscus tear versus chondral contusion as she does have pain around the clock. Diagnostic plan: An MRI will be conducted for further evaluation. Treatment plan: Ice, Tylenol, and offloading her knee with use of her walker are recommended. Clinical decision making: If a meniscus tear is noted, knee arthroscopy will be considered given her persistent symptoms. Questions answered in laymen terms at the bedside. The diagnosis, home exercise plan and any ongoing restrictions/ recommendations reviewed. If unable to be reached in office, I recommend evaluation at nearest Emergency Room if any symptoms worsened or new symptoms develop for requiring urgent evaluation. Visit was preformed using [employer]-remote pilot operator speech recognition. documented in this encounter [facility] 02-25-2025 Miscellaneous Notes Images from the original note were not included. Patient called and stated that she needed a PA for her Trelegy, ad copy writer initiated PA through covermymeds. PA came back denied for Trelegy 200. Images from the original note were not included. Reinitiated PA through Epic, PA for Trelegy 200 approved. Freddie thanks documented in this encounter [facility] 02-25-2025 Telephone encounter Note Images from the original note were not included. Patient called and stated that she needed a PA for her Trelegy, ad copy writer initiated PA through covermymeds. PA came back denied for Trelegy 200. [facility] 02-25-2025 Telephone encounter Note Images from the original note were not included. Reinitiated PA through Epic, PA for Trelegy 200 approved. [facility] 02-25-2025 Telephone encounter Note Freddie dolan [facility] 02-17-2025 Miscellaneous Notes Patient called office and stated that she only has 2 weeks left on her Trelegy 200, patient is requesting a refill as she does not see SE until 03/13/2025. Patient is requesting that the Rx be sent to [place], [place]. Please review and advise. Okay to send refills Script sent to get patient to office appt on 03-13-25. At office appt, will need to discuss additional refills with physician. Silvia - please call patient and notify. School Psychology Professor called patient and informed her that Rx was sent to pharmacy and that she would have enough to get her through until her appointment, patient verbalized understanding. documented in this encounter [facility] 02-17-2025 Telephone encounter Note Patient called office and stated that she only has 2 weeks left on her Trelegy 200, patient is requesting a refill as she does not see SE until 03/13/2025. Patient is requesting that the Rx be sent to [place], [place]. Please review and advise. [facility] 02-17-2025 Telephone encounter Note Okay to send refills [facility] 02-17-2025 Telephone encounter Note Script sent to get patient to office appt on 7-10-25. At office appt, will need to discuss additional refills with physician. Silvia - please call patient and notify. [facility] 02-17-2025 Telephone encounter Note School Psychology Professor called patient and informed her that Rx was sent to pharmacy and that she would have enough to get her through until her appointment, patient verbalized understanding. [facility] 02-10-2025 History of Present illness Narrative Associated Problem(s): Type 2 diabetes mellitus with hyperglycemia, with long-term current use of insulin (CMS/[facility]) BS elevated and increase semglee to 20 units BID. Resume moujaro. Associated Problem(s): Osteoarthritis of knee Unsteady when moving and script for rolling walker to patient. Associated Problem(s): Mild episode of recurrent major depressive disorder (HCC) (CMS/HCC) Symptoms worse and increase celexa. Warned will take 2-3 weeks to notice improvement in mood. Associated Problem(s): JOHN (generalized anxiety disorder) (CMS/HCC) Symptoms worse and increase celexa. Warned will take 2-3 weeks to notice improvement in mood. Use ativan PRN. Associated Problem(s): Class 3 severe obesity due to excess calories with serious comorbidity and body mass index (BMI) of 40.0 to 44.9 in adult Weight loss indicated. Associated Problem(s): Chronic heart failure with preserved ejection fraction (HFpEF) (CMS/HCC) Edema stable and continue lasix. Associated Problem(s): Benign essential hypertension (CMS/HCC) BP controlled and monitor PRN. Images from the original note were not included. Subjective Patient ID: Carissa Santos is a 44 y.o. female who presents for Follow-up (3m f/up/Left knee pain), Depression, and Cough (With sore throat). Follow up DM, depression, anxiety, CHF, and GERD. Reports BS remains elevated around 300. On semglee 15 units BID. Tries to eat well and stick to ADA diet. Denies signs of elevated BS such as polyuria, polyphagia or polydipsia. Due for A1C. Depression recently worse. Moved and found out [id number] . Down, sad, and crying. Not want to do things or be around others. Increased anxiety. Nervous and worry all the time. Stressed out and overwhelmed. Thought racing and hard to clear mind. [place], irritable and snapping at others. Easily upset and overreact. Edema controlled with medication. Mild swelling at end of day and if on feet a lot. Edema improved in am and with elevation. GERD controlled with protonix. Denies epigastric pain or burning and not waking up with symptoms. Requests new walker. History of OA knees. Very difficult to walk and unsteady. Uses walker for ADLs. DepressionPatient is not experiencing: palpitations and shortness of breath. Cough Pertinent negatives include no chest pain, shortness of breath or wheezing. Review of Systems Respiratory: Positive for cough. Negative for shortness of breath and wheezing. Cardiovascular: Negative for chest pain and palpitations. Gastrointestinal: Negative for abdominal pain, diarrhea, nausea and vomiting. Genitourinary: Negative for dysuria. Psychiatric/Behavioral: Positive for depression. Objective Physical Exam Constitutional: General: She is [...] Assessment/Plan Problem List Items Addressed This Visit JOHN (generalized anxiety disorder) ([facility]) Symptoms worse and increase celexa. Warned will take 2-3 weeks to notice improvement in mood. Use ativan PRN. Relevant Medications LORazepam (Ativan) 1 MG tablet Chronic heart failure with preserved ejection fraction (HFpEF) (CMS/HCC) Edema stable and continue lasix. Type 2 diabetes mellitus with microalbuminuria, with long-term current use of insulin (CMS/HCC) Mild episode of recurrent major depressive disorder (HCC) (CMS/HCC) Symptoms worse and increase celexa. Warned will take 2-3 weeks to notice improvement in mood. Relevant Medications citalopram (CeleXA) 40 MG tablet Class 3 severe obesity due to excess calories with serious comorbidity and body mass index (BMI) of 40.0 to 44.9 in adult Weight loss indicated. Relevant Orders TSH Osteoarthritis of knee Unsteady when moving and script for rolling walker to patient. Dyslipidemia (CMS/HCC) Relevant Orders Lipid panel Benign essential hypertension (CMS/HCC) BP controlled and monitor PRN. Relevant Orders Basic metabolic panel Type 2 diabetes mellitus with hyperglycemia, with long-term current use of insulin (CMS/HCC) - Primary BS elevated and increase semglee to 20 units BID. Resume moujaro. Relevant Medications insulin glargine (Semglee) 100 UNIT/ML pen Tirzepatide (Mounjaro) 2.5 MG/0.5ML solution auto-injector Other Relevant Orders Microalbumin / creatinine, urine ratio Hemoglobin A1c Encounter for long-term (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 medications Relevant Orders CBC and differential Hepatic function panel documented in this encounter [facility] 01-03-2025 History of Present illness Narrative Carissa Santos Date of visit: 01/03/2025 Date of : 1980 Age: 44 y.o. Patient Active Problem List Diagnosis Hyperglycemia Chest wall pain Type 2 diabetes mellitus with hyperglycemia, with long-term current use of insulin ([facility]) Mild developmental delay Obstructive sleep apnea syndrome Hyperlipidemia associated with type 2 diabetes mellitus ([facility]) Abnormal ECG during exercise stress test Mediastinal lymphadenopathy Acute cystitis without hematuria Pulmonary nodule Dyspnea on exertion Moderate persistent asthma without complication Chronic hypoxic respiratory failure ([facility]) BMI 40.0-44.9, adult ([facility]) Pulmonary hypertension ([facility]) COPD (chronic obstructive pulmonary disease) ([facility]) Chronic heart failure with preserved ejection fraction ([facility]) Dyslipidemia Edema Gastroesophageal reflux disease HTN (hypertension) Allergies Allergen Reactions Sulfamethoxazole-Trimethoprim Hives, Itching and [...] Units total) by mouth in the morning. citalopram (CeleXA) 20 mg tablet clonazePAM (KlonoPIN) 1 mg tablet Take 1 tablet (1 mg total) by mouth as needed in the morning and 1 tablet (1 mg total) as needed in the evening for seizures. cyclobenzaprine (FLEXERIL) 10 mg tablet Take 1 tablet (10 mg total) by mouth 3 (three) times a day as needed for muscle spasms. 30 tablet 0 dicyclomine (BENTYL) 20 mg tablet Take 1 tablet (20 mg total) by mouth every 6 (six) hours. empagliflozin (JARDIANCE) 10 mg tablet tablet Take 1 tablet (10 mg total) by mouth in the morning. 90 tablet 3 FREESTYLE CRYSTAL 14 DAY SENSOR kit furosemide (LASIX) 20 mg tablet Take 1 tablet (20 mg total) by mouth daily. 90 tablet 3 insulin aspart U-100 (NovoLOG) 100 unit/mL (3 mL) insulin pen in the morning and at noon and in the evening. Take with meals. insulin glargine (LANTUS) 100 unit/mL injection Inject 0.15 mL (15 Units total) under the skin in the morning. lamoTRIgine (LaMICtal) 200 mg tablet Take 1 tablet (200 mg total) by mouth in the morning. Indications: bipolar depression. lisinopriL (PRINIVIL,ZESTRIL) 2.5 mg tablet take 1 tablet by mouth every morning 30 tablet 2 LORazepam (ATIVAN) 1 mg tablet Take 1 tablet (1 mg total) by mouth as needed in the morning and 1 tablet (1 mg total) as needed at noon and 1 tablet (1 mg total) as needed in the evening. nabumetone (RELAFEN) 500 mg tablet Take 1 tablet (500 mg total) by mouth as needed in the morning and 1 tablet (500 mg total) as needed in the evening. naproxen (NAPROSYN) 500 mg tablet Take 1 tablet (500 mg total) by mouth in the morning and 1 tablet (500 mg total) in the evening. Take with meals. 30 tablet 0 pantoprazole (PROTONIX) 40 mg EC tablet Take 1 tablet (40 mg total) by mouth every morning before breakfast. sertraline (ZOLOFT) 100 mg tablet Take 1 tablet (100 mg total) by mouth in the morning. topiramate (TOPAMAX) 25 mg capsule Take 1 capsule (25 mg total) by mouth in the morning and 1 capsule (25 mg total) before bedtime. TRELEGY ELLIPTA 200-62.5-25 mcg blister with device Inhale 1 puff in the morning. ondansetron ODT (ZOFRAN ODT) 4 mg disintegrating tablet Dissolve 1 tablet (4 mg total) on tongue every 8 (eight) hours as needed for nausea for up to 10 doses. 10 tablet 0 tirzepatide (MOUNJARO) 5 mg/0.5 mL pen injector Inject 5 mg under the skin every 7 days. (Patient not taking: Reported on 01/03/2025) 6 mL 3 No current facility-administered medications for this visit. Chief Complaint Patient presents with Follow-up 3mo ov, l/s LLD - no labs/testing - appt sched w/ pt History of Present Illness I last saw this 44-year-old in October She has a history of type 2 diabetes and hyperlipidemia associated with type 2 diabetes She has chronic shortness of breath. . She has occasional chest discomfort but this has been improving. She denies syncope or worsening edema She is followed by Dr. Arrieta from a pulmonary standpoint Carissa is . She does not work outside the home secondary to mild developmental delay. She has previously been accompanied by her aide, Gosia, from the [facility]/social media marketing specialist. Today she is unaccompanied CV TESTING HISTORY: ECHO: Echo complete W/ contrast Result Date: 05/14/2024 Left Ventricle: Left ventricle appears normal in size. Wall thickness is normal. Systolic function is normal with an ejection fraction of 60-65%. The quantitative EF by 2D Brush biplane is 65%. Right Ventricle: Right ventricular size appears normal. Systolic function is normal. No significant valvular stenosis or regurgitation. Echo complete W/ contrast Result Date: 06/05/2023 Left Ventricle: Systolic function is normal with an ejection fraction of 65-70%. The quantitative EF by 2D Brush biplane is 68%. No significant valvular disease noted. STRESS: No results found. HOLTER: No results found. CARDIAC CATH: No results found. CAROTID: No results found. CXR: No results found. Lipid Profile: Lab Results Component Value Date Cholesterol 249 (H) 06/07/2022 Cholesterol:HDL Ratio 4.7 06/07/2022 HDL Cholesterol 53 06/07/2022 Triglycerides 241 (H) 06/07/2022 LDL (calc) 148 (H) 06/07/2022 Past Medical History: Diagnosis Date Anxiety Deep vein thrombosis (CMS-HCC) Dental disease no teeth Depression Diabetes mellitus type I (CMS-HCC) Elevated cholesterol GERD (gastroesophageal reflux disease) Hyperlipidemia Hypertension Lymphadenopathy 2023 MR (mental retardation) Obesity Panic disorder Visual impairment Past Surgical History: Procedure Laterality Date Cardiac Invasive N/A 06/26/2024 Performed by Harinder Estrella MD at [facility] CARDIAC CATH LABS CHOLECYSTECTOMY COLONOSCOPY 2021 COLONOSCOPY DIAGNOSTIC / SCREENING N/A 09/12/2024 Performed by Aliya Solorzano DO at [facility] ENDOBRON[facility]IAL ULTRASOUND BRONCHOSCOPY N/A 11/22/2023 Performed by Libby Finley MD at [facility] Right heart cath N/A 06/26/2024 Performed by Harinder Estrella MD at [facility] CARDIAC CATH LABS TONSILLECTOMY TUBAL LIGATION Bilateral 2017 Family History Problem Relation Age of Onset Diabetes Mother Heart attack Mother Cancer Father Anesthesia problems Neg Hx Social History Socioeconomic History Marital status: Spouse name: Not on file Number of children: Not on file Years of education: Not on file Highest education level: Not on file Occupational History Not on file Tobacco Use Smoking status: Never Smokeless tobacco: Never Vaping Use Vaping status: Never Used Substance and Sexual Activity Alcohol use: Not Currently Drug use: Never Sexual activity: Defer Other Topics Concern Caffeine Use Yes Social History Narrative Not on file Social Drivers of Health Financial Resource Strain: Low Risk (12/20/2023) Overall Financial Resource Strain (CARDIA) Difficulty of Paying Living Expenses: Not hard at all Food Insecurity: No Food Insecurity (01/03/2025) Hunger Screening Food Insecurity - Worry: Never True Food Insecurity - Inability: Never True Transportation Needs: No Transportation Needs (07/21/2024) PRAPARE - Transportation Lack of Transportation (Medical): No Lack of Transportation (Non-Medical): No Physical Activity: Insufficiently Active (12/20/2023) Exercise Vital Sign Days of Exercise per Week: 3 days Minutes of Exercise per Session: 10 min Stress: No Stress Concern Present (12/20/2023) [employer] [place] [employer] - Occupational Stress Questionnaire Feeling of Stress : Only a little Social Connections: Moderately Isolated (12/20/2023) Social Connection and Isolation Panel [NHANES] Frequency of Communication with Friends and Family: More than three times a week Frequency of Social Gatherings with Friends and Family: More than three times a week Attends Oriental Orthodox Services: Never Active Member of Clubs or Organizations: No Attends Club or Organization Meetings: Never Marital Status: Interpersonal Safety: Not At Risk (07/21/2024) Humiliation, Afraid, Rape, and Kick questionnaire Fear of Current or Ex-Partner: No Emotionally Abused: No Physically Abused: No Sexually Abused: No Housing Instability: Low Risk (07/21/2024) Housing Instability Housing Instability: No Review of Systems Review of Systems Constitutional: Negative. HENT: Negative. Eyes: Negative. Cardiovascular: Negative. Vascular: Negative. Respiratory: Negative. Endocrine: Negative. Hematologic/Lymphatic: Negative. Skin: Negative. Musculoskeletal: Negative. Gastrointestinal: Negative. Genitourinary: Negative. Neurological: Negative. Psychiatric/Behavioral: Negative. Allergic/Immunologic: Negative. CARDIOVASCULAR: Please review HPI. Physical Examination General appearance: Alert, oriented and cooperative. In no acute distress. Oxygen per nasal cannula Skin: Warm and dry to touch. Respiratory: Bilateral diminished without rales Cardiovascular: RRR with normal S1 and S2 with no murmurs. Musculoskeletal: Scant bilateral lower extremity edema VITAL SIGNS: BP 116/78 Pulse 76 Ht 154.9 cm (5' 1 ) Wt 99.3 kg (219 lb) SpO2 100% BMI 41.38 kg/m No orders of the defined types were placed in this encounter. There are no discontinued medications. IMPRESSIONS/PLAN 1. Chronic heart failure with preserved ejection fraction ([facility]) 2. Primary hypertension 3. Dyspnea on exertion 4. Hyperlipidemia associated with type 2 diabetes mellitus ([facility]) 1. CTA of the coronaries with calcium score of 0 08/2023 --no stenosis or plaque seen within the coronary system 2. Type 2 diabetes 3. Hyperlipidemia associated with type 2 diabetes --atorvastatin 4. Obstructive sleep apnea 5. Chronic hypoxic respiratory failure -3 L of oxygen per nasal cannula --reduced DLCO on PFT 6. Right upper lobe pulmonary nodule 1.5 cm stable x2 years -negative on PET 6. Status post salpingectomy 7. Developmental delay 8. Echocardiogram without evidence of significant tricuspid regurgitation/pulmonary hypertension 9. Right heart catheterization 06/2024 with mild pulmonary hypertension Likely secondary to obesity and obstructive sleep apnea 10. Chronic heart failure with preserved ejection fraction -Jardiance/lisinopril --guideline directed medical therapy limited by hypotension 11. BMI greater than 40 --patient had been on tirzepatide but felt that her appetite was too decreased and she was losing weight too quickly. She reports that the medication was stopped by her primary Avoid naproxen/NSAIDs as able TODAYS ORDERS No orders of the defined types were placed in this encounter. FOLLOW UP Return in about 6 months (around 07/06/2025). PCP: DIAZ DALTON MD Referring Physician: Diaz Dalton MD [address] [place] [address] documented in this encounter [facility] 01-02-2025 Miscellaneous Notes Called patient to remind them to bring their most current copy of their medication list with them to their appt. Patient verbalizes understanding. documented in this encounter [facility] 01-02-2025 Telephone encounter Note Called patient to remind them to bring their most current copy of their medication list with them to their appt. Patient verbalizes understanding. [facility] 12-09-2024 Miscellaneous Notes PAP mask and supplies order with supportive documentation faxed to [facility]. documented in this encounter [facility] 12-09-2024 Telephone encounter Note PAP mask and supplies order with supportive documentation faxed to [facility]. [facility] 12-04-2024 History of Present illness Narrative Images from the original note were not included. Chief Complaint: Carissa [facility] 12/04/2024. She is a 44 y.o. female followed [facility] the [facility] for JOSE M ONLY, for which CPAP 16 cm H2O was prescribed. At the time of the last visit on 06/13/24 with SE, the plan was to start PAP therapy. HPI: The patient reports that she is adherent to her nocturnal ventilatory support for 46 minutes a night 0 out of 30 days days. She reports she is not sure why she is not wearing since going to DME and having them show her how to wear. Caregiver present with patient reports she tried to go with her to see how to use machine, but patient decided to go by other means. Discussed the importance of wearing with any sleep. Patient also reported in office she is not always using her oxygen. She denies any dyspnea, fevers, chills, hemoptysis, wheezing, or chest pain. Supplemental O2 use: none Current PAP interface: She uses a Nasal Mask. She does not use a chinstrap. She does not use the heated inline humidifier. Cleaning supplies with soap and water PMH: Pertinent History: Her pertinent medical history includes Past Medical History: Diagnosis Date Anxiety Deep vein thrombosis ([facility]) Dental disease no teeth Depression Diabetes mellitus type I ([facility]) Elevated cholesterol GERD (gastroesophageal reflux disease) Hyperlipidemia Hypertension Lymphadenopathy 2023 MR (mental retardation) Obesity Panic disorder Visual impairment Medications: Reviewed with patient. Current Outpatient Medications: albuterol (PROVENTIL HFA;VENTOLIN HFA) 90 mcg/actuation inhaler, Inhale 2 puffs every 6 (six) hours as needed for wheezing or shortness of breath., Disp: 18 g, Rfl: 0 atorvastatin (LIPITOR) 40 mg tablet, Take 1 tablet (40 mg total) by mouth in the morning., Disp: , Rfl: buPROPion XL (WELLBUTRIN XL) 300 mg 24 hr tablet, Take 1 tablet (300 mg total) by mouth every morning., Disp: , Rfl: cholecalciferol, vitamin D3, 400 units tablet, Take 1 tablet (400 Units total) by mouth in the morning., Disp: , Rfl: citalopram (CeleXA) 20 mg tablet, , Disp: , Rfl: clonazePAM (KlonoPIN) 1 mg tablet, Take 1 tablet (1 mg total) by mouth 2 (two) times a day as needed for seizures., Disp: , Rfl: cyclobenzaprine (FLEXERIL) 10 mg tablet, Take 1 tablet (10 mg total) by mouth 3 (three) times a day as needed for muscle spasms., Disp: 30 tablet, Rfl: 0 dicyclomine (BENTYL) 20 mg tablet, Take 1 tablet (20 mg total) by mouth every 6 (six) hours., Disp: , Rfl: empagliflozin (JARDIANCE) 10 mg tablet tablet, Take 1 tablet (10 mg total) by mouth in the morning., Disp: 90 tablet, Rfl: 3 FREESTYLE CRYSTAL 14 DAY SENSOR kit, APPLY 1 SENSOR TO BACK OF UPPER ARM. REMOVE AND REPLACE EVERY 14 DAYS, Disp: , Rfl: furosemide (LASIX) 20 mg tablet, Take 1 tablet (20 mg total) by mouth daily., Disp: 90 tablet, Rfl: 3 insulin aspart U-100 (NovoLOG) 100 unit/mL (3 mL) insulin pen, 3 (three) times a day with meals., Disp: , Rfl: insulin glargine (LANTUS) 100 unit/mL injection, Inject 0.15 mL (15 Units total) under the skin in the morning., Disp: , Rfl: lamoTRIgine (LaMICtal) 200 mg tablet, Take 1 tablet (200 mg total) by mouth in the morning. Indications: bipolar depression., Disp: , Rfl: lisinopriL (PRINIVIL,ZESTRIL) 2.5 mg tablet, take 1 tablet by mouth every morning, Disp: 30 tablet, Rfl: 2 LORazepam (ATIVAN) 1 mg tablet, Take 1 tablet (1 mg total) by mouth Three times daily as needed., Disp: , Rfl: nabumetone (RELAFEN) 500 mg tablet, Take 1 tablet (500 mg total) by mouth 2 (two) times a day as needed., Disp: , Rfl: naproxen (NAPROSYN) 500 mg tablet, Take 1 tablet (500 mg total) by mouth in the morning and 1 tablet (500 mg total) in the evening. Take with meals., Disp: 30 tablet, Rfl: 0 ondansetron ODT (ZOFRAN ODT) 4 mg disintegrating tablet, Dissolve 1 tablet (4 mg total) on tongue every 8 (eight) hours as needed for nausea for up to 10 doses., Disp: 10 tablet, Rfl: 0 pantoprazole (PROTONIX) 40 mg EC tablet, Take 1 tablet (40 mg total) by mouth every morning before breakfast., Disp: , Rfl: sertraline (ZOLOFT) 100 mg tablet, Take 1 tablet (100 mg total) by mouth in the morning., Disp: , Rfl: tirzepatide (MOUNJARO) 5 mg/0.5 mL pen injector, Inject 5 mg under the skin every 7 days., Disp: 6 mL, Rfl: 3 topiramate (TOPAMAX) 25 mg capsule, Take 1 capsule (25 mg total) by mouth in the morning and 1 capsule (25 mg total) before bedtime., Disp: , Rfl: TRELEGY ELLIPTA 200-62.5-25 mcg blister with device, Inhale 1 puff in the morning., Disp: , Rfl: Vitals: 04/02/25 1304 BP: 99/64 Pulse: 87 SpO2: 98% Weight: 96 kg (211 lb 11.2 oz) Height: 154.9 cm (5' 1 ) Allergies: Reviewed with patient. Sulfamethoxazole-trimethoprim Family History: Family History Problem Relation Age of Onset Diabetes Mother Heart attack Mother Cancer Father Anesthesia problems Neg Hx Social History: Social History Socioeconomic History Marital status: Tobacco Use Smoking status: Never Smokeless tobacco: Never Vaping Use Vaping status: Never Used Substance and Sexual Activity Alcohol use: Not Currently Drug use: Never Sexual activity: Defer Other Topics Concern Caffeine Use Yes Social Drivers of Health Financial Resource Strain: Low Risk (12/20/2023) Overall Financial Resource Strain (CARDIA) Difficulty of Paying Living Expenses: Not hard at all Food Insecurity: No Food Insecurity (10/27/2024) Hunger Screening Food Insecurity - Worry: Never True Food Insecurity - Inability: Never True Transportation Needs: No Transportation Needs (07/21/2024) PRAPARE - Transportation Lack of Transportation (Medical): No Lack of Transportation (Non-Medical): No Physical Activity: Insufficiently Active (12/20/2023) Exercise Vital Sign Days of Exercise per Week: 3 days Minutes of Exercise per Session: 10 min Stress: No Stress Concern Present (12/20/2023) [employer] [place] [employer] - Occupational Stress Questionnaire Feeling of Stress : Only a little Social Connections: Moderately Isolated (12/20/2023) Social Connection and Isolation Panel [NHANES] Frequency of Communication with Friends and Family: More than three times a week Frequency of Social Gatherings with Friends and Family: More than three times a week Attends Oriental [employer] Services: Never Active Member of Clubs or Organizations: No Attends Club or Organization Meetings: Never Marital Status: Interpersonal Safety: Not At Risk (07/21/2024) Humiliation, Afraid, Rape, and Kick questionnaire Fear of Current or Ex-Partner: No Emotionally Abused: No Physically Abused: No Sexually Abused: No Housing Instability: Low Risk (07/21/2024) Housing Instability Housing Instability: No Travel History: Denies recent travel. ROS: All 11 systems have been reviewed: Review of Systems Constitutional: Positive for fatigue. Negative for chills and fever. Respiratory: Negative for cough, shortness of breath and wheezing. Cardiovascular: Negative for chest pain/discomfort. All other systems are reviewed and are negative except as noted. Physical Examination: Vital signs BP 99/64 Pulse 87 Ht 154.9 cm (5' 1 ) Wt 96 kg (211 lb 11.2 oz) SpO2 98% Comment: Arrived on 3Lnc of O2 BMI 40.00 kg/m Physical Exam Vitals and nursing note reviewed. Constitutional: Appearance: Normal appearance. She is obese. Cardiovascular: Heart sounds: Normal heart sounds. Pulmonary: Breath sounds: Normal breath sounds. Musculoskeletal: Cervical back: Neck supple. Skin: General: Skin is warm and dry. Neurological: Mental Status: She is alert and oriented to person, place, and time. Psychiatric: Mood and Affect: Mood normal. Behavior: Behavior normal. Laboratory DATA: Lab Results Component Value Date CO2 26 10/27/2024 Lab Results Component Value Date TSH 2.45 07/21/2024 Lab Results Component Value Date WBC 6.7 10/27/2024 HGB 15.1 10/27/2024 HCT 44.0 10/27/2024 MCV 84 10/27/2024 PLT 211 10/27/2024 No results found for: FERRITIN Chemistry Component Value Date/Time K 3.6 10/27/2024 1513 CL 101 10/27/2024 1513 CO2 26 10/27/2024 1513 BUN 28 (H) 10/27/2024 1513 CREATININE 1.06 (H) 10/27/2024 1513 GLU 148 (H) 10/27/2024 1513 GLU 169 (H) 07/23/2024 1218 Component Value Date/Time CALCIUM 9.2 10/27/2024 1513 ALKPHOS 82 10/27/2024 1513 AST 27 10/27/2024 1513 AST 12 06/07/2022 0917 ALT 35 (H) 10/27/2024 1513 ALT 18 06/07/2022 0917 Lab Results Component Value Date TSH 2.45 07/21/2024 Echo complete W/ contrast Result Date: 05/14/2024 Left Ventricle: Left ventricle appears normal in size. Wall thickness is normal. Systolic function is normal with an ejection fraction of 60-65%. The quantitative EF by 2D Brush biplane is 65%. Right Ventricle: Right ventricular size appears normal. Systolic function is normal. No significant valvular stenosis or regurgitation. Echo complete W/ contrast Result Date: 06/05/2023 Left Ventricle: Systolic function is normal with an ejection fraction of 65-70%. The quantitative EF by 2D Brush biplane is 68%. No significant valvular disease noted. Lab Results Component Value Date pH 7.278 (L) 09/28/2021 PCO2 31.2 (L) 09/28/2021 PO2 83 09/28/2021 Base,Deficit 11.0 (H) 09/28/2021 Portable HCO3 14.6 (L) 09/28/2021 SPO2 100 09/28/2021 DATA: Split night polysomnogram on 08/06/2024 AHI (3%)=58.3 events/hour; AHI (4%)=38.5 events/hour; Zach SpO2=61.0%; (Hkrnsl=698.0 lbs; BMI=45.5 kg/m2) CPAP 16 cm H20 pressure. DME: [employer] Data card was available for PAP usage data download. PAP compliance is unsatisfactory. Impression: Carissa was seen today for sleep apnea. Diagnoses and all orders for this visit: Obstructive sleep apnea syndrome - PAP Mask and Supplies Noncompliance with CPAP treatment Chronic hypoxic respiratory failure, on home oxygen therapy ([facility]) Obesity, Class III, BMI 40-49.9 (morbid obesity) ([facility]) Chronic hypoxic respiratory failure -2L with exertion and 3L with sleep Right upper lobe pulmonary nodule 1.5cm stable x 2 years. -negative on PET. Mild enlarged station [address]R LN with SUV 2.8 Isolated severely reduced DLCO on PFT -no evidence of ILD on prior CT imaging Suspected obstructive lung disease with symptomatic improvement on Trelegy Obesity with Body mass index is 40 kg/m . Developmental delay JOSE M with noncompliance to nocturnal ventilatory support. Plan: Discussed diagnosis, its evaluation, treatment and usual course. All questions answered. Educational material distributed. Orders Placed This Encounter Procedures PAP Mask and Supplies Please link us to patient's machine if not completed already. Tax ID: [id number] Scheduling Instructions: Length of Need: 12 months -Full Face Interface1/3mos -Full Face Cushion 1/mo -Nasal Cushion 2/mo, -Nasal Mask 1/3mos -Pillows 2/mo -Htd Tubing 1/3mos -Headgear 1/6mos -Chin Strap1/6mos -Non-Disposable Filter1/6mos -Disposable Filter2/mo -Water Chamber1/6mos -Std Tubing 1/3 mos -Add heat humidification with tubing Order Specific Question: Please specify Answer: PAP Mask and Supplies Order Specific Question: The face to face evaluation was performed on Answer: 12/06/2024 No orders of the defined types were placed in this encounter. She is to continue APAP 6-20 cm H20 on a nightly basis. New mask and supplies as needed. Independently reviewed and interpreted data download and ESS Discussed with patient and caregiver in detail. Highly encouraged to start wearing machine. Diet and exercise were discussed in detail. Any age appropriate or routine screening per PCP. Follow up in 3-6 Months time. If her condition should change prior to this she is encouraged to give our office a call. Discussed triggers to call back before follow up including weight change > 10%, major medical issues including stroke, arrhythmia or heart attack, or significant change in symptoms. EDUCATION: Driving precautions were reviewed. I advised the patient not to drive if sleepy, and to stick puller if sleepiness occurs while driving. Above plan as discussed with the patient who acknowledged understanding and agreement. Health risks associated with untreated JOSE M were discussed (cardiopulmonary, cerebrovascular, and anesthesia/sedative-related). Discussed triggers to call back before next visit including weight change > 10%, major medical issues including stroke, arrhythmia or heart attack, or significant change in symptoms. This note is dictated with the use of M*Modal.Please note that this dictation was completed with computer voice recognition software. Quite often unanticipated grammatical, syntax, homophones, and other interpretive errors are inadvertently transcribed by the computer software. Please disregard these errors. Please excuse any errors that have escaped final proofreading. Pacheco Madrigal [facility] Office: [phone] 10:08 AM on 12/06/2024 CC: MD Pacheco BULL APRN-CNP 12/06/24 1008 documented in this encounter [facility] 12-04-2024 Instructions DUSTIN Quarles - 12/04/2024 1:00 PM EDT If you re looking for general health and wellness resources, please visit [email or web address]. documented in this encounter [facility] 11-07-2024 History of Present illness Narrative Associated Problem(s): Type 2 diabetes mellitus with hyperglycemia, with long-term current use of insulin ([facility]) Reports BS occasionally low but A1C 12.8. Continue semglee and increase jardiance. Stick to ADA diet and limit carbs. Associated Problem(s): Mild episode of recurrent major depressive disorder (HCC) ([facility]) Mood controlled with medication and continue. Associated Problem(s): Gastroesophageal reflux disease Symptoms controlled with protonix and continue. Associated Problem(s): JOHN (generalized anxiety disorder) ([facility]) Mood controlled with medication and continue. Use ativan PRN. Associated Problem(s): Class 3 severe obesity due to excess calories with serious comorbidity and body mass index (BMI) of 40.0 to 44.9 in adult ([facility]) Weight loss indicated. Associated Problem(s): Chronic heart failure with preserved ejection fraction (HFpEF) ([facility]) Continue lasix. Images from the original note were not included. Subjective Patient ID: Carissa Santos is a 44 y.o. female who presents for Follow-up. Follow up DM, depression, anxiety, CHF, and GERD. Reports BS improved and 100-200. On semglee and decreased to once a day due to low BS. Stopped mounjaro due to GI side effects which have improved. Recent A1C 12.8. Tries to eat well and stick to ADA diet. Denies signs of elevated BS such as polyuria, polyphagia or polydipsia. Depression controlled with medication. Not as down or sad and feels happier. Anxiety stable. Not as stressed out or overwhelmed. Not as nervous or worry as much. Not as galicia or irritable. Edema controlled with medication. Mild swelling at end of day and if on feet a lot. Edema improved in am and with elevation. GERD controlled with protonix. Denies epigastric pain or burning and not waking up with symptoms. Review of Systems Respiratory: Negative for cough, [...] Assessment/Plan Problem List Items Addressed This Visit JOHN (generalized anxiety disorder) ([facility]) Mood controlled with medication and continue. Use ativan PRN. Chronic heart failure with preserved ejection fraction (HFpEF) ([facility]) Continue lasix. Relevant Medications furosemide (Lasix) 40 MG tablet Gastroesophageal reflux disease Symptoms controlled with protonix and continue. Mild episode of recurrent major depressive disorder (HCC) ([facility]) Mood controlled with medication and continue. Class 3 severe obesity due to excess calories with serious comorbidity and body mass index (BMI) of 40.0 to 44.9 in adult ([facility]) Weight loss indicated. Type 2 diabetes mellitus with hyperglycemia, with long-term current use of insulin ([facility]) - Primary Reports BS occasionally low but A1C 12.8. Continue semglee and increase jardiance. Stick to ADA diet and limit carbs. Relevant Medications empagliflozin (Jardiance) 25 MG Continuous Glucose Community Relations Liaison (FreeStyle Crystal 3 [place]) device documented in this encounter [facility] 10-28-2024 History of Present illness Narrative Associated Problem(s): Chronic heart failure with preserved ejection fraction (HFpEF) ([facility]) Continue lasix. Associated Problem(s): Chronic hypoxic respiratory failure ([facility]) On home oxygen and follow with pulmonology. Associated Problem(s): Class 3 severe obesity due to excess calories with serious comorbidity and body mass index (BMI) of 40.0 to 44.9 in adult ([facility]) Weight loss indicated. Associated Problem(s): Type 2 diabetes mellitus with hyperglycemia, with long-term current use of insulin ([facility]) Stop mounjaro and decrease insulin. Check A1C. Associated Problem(s): Nausea & vomiting Use zofran PRN. Associated Problem(s): Dehydration Improved after IV fluids and monitor. Continue with increased fluid intake. Images from the original note were not included. Subjective Patient ID: Carissa Santos is a 44 y.o. female who presents for No chief complaint on file.. ER follow up from 10/27 for lightheadedness, nausea, and vomiting. C/o GI symptoms for several weeks. Initially emesis but now severe nausea. Not eating much and poor appetite. Severe nausea. Trying to drink well and increase fluids. Called last week and advised to stop mounjaro. Dose due Monday. [place] weak and lightheaded. To ER and labs showed dehydration. Given IV fluids and discharged. Better today. Still decreased appetite but no nausea. Decreased insulin to 15 units in am. BS in ER 148. Review of Systems Respiratory: Negative for cough, [...] Assessment/Plan Problem List Items Addressed This Visit Type 2 diabetes mellitus with hyperglycemia, with long-term current use of insulin ([facility]) Stop mounjaro and decrease insulin. Check A1C. Relevant Medications insulin glargine (Semglee) 100 UNIT/ML pen Other Relevant Orders Hemoglobin A1c Dehydration - Primary Improved after IV fluids and monitor. Continue with increased fluid intake. Nausea & vomiting Use zofran PRN. documented in this encounter [facility] 10-09-2024 History of Present illness Narrative Images from the original note were not included. Subjective Patient ID: Carissa Santos is a 44 y.o. female who presents for Foot Pain (Carissa Santos 44yo. Patient relates her left foot is always numb, started about 9 months ago. NKI. ). HPI Established patient presents to clinic with concern of numbness primarily in the left foot. This has been going on for about a year and she has noticed it seems to be getting worse. She denies any pain. She states that she tries to slap the foot and walk around to make the numbness sensation goes away but she has no success with this. She is a poorly-controlled diabetic although recently her blood sugars have been improving. Review of Systems Constitutional: Negative for activity change and appetite change. Respiratory: Negative for chest tightness and shortness of breath. Cardiovascular: Positive for leg swelling. Negative for chest pain. Musculoskeletal: Positive for arthralgias. Skin: Negative for color change and wound. Neurological: Positive for numbness. Negative for weakness. Psychiatric/Behavioral: Negative for agitation and behavioral problems. Hematological: Does not bruise/bleed easily. Endocrine: Negative for cold intolerance and heat intolerance. Allergic/Immunologic: Negative for immunocompromised state. Past medical History Past Medical History: Diagnosis Date Ankle fracture Anxiety and depression (CMS/HCC) At low risk for fall Bilateral leg edema Chest pain, central Chronic left shoulder pain Chronic pain Chronic respiratory failure (CMS/HCC) Dyslipidemia (CMS/HCC) Epilepsy (CMS/HCC) Childhood epilepsy JOHN (generalized anxiety disorder) (CMS/HCC) Genital warts GERD (gastroesophageal reflux disease) History of being hospitalized pneumonia, diabetes, infection [10/29/21-11/05/21] History of medical problems mild mental retardation Hyperlipidemia (CMS/HCC) Insomnia, persistent Irritable bowel syndrome with diarrhea MDD (major depressive disorder), recurrent episode, mild (HCC) (CMS/HCC) Migraine without aura and without status migrainosus, not intractable ([facility]) Morbid obesity with BMI of 40.0-44.9, adult ([facility]) Nocturnal hypoxemia Nonsmoker OAB (overactive bladder) Obesity JOSE M (obstructive sleep apnea) Postoperative urinary retention Primary osteoarthritis of left knee Seasonal allergies Type 2 diabetes mellitus with diabetic polyneuropathy, with long-term current use of insulin ([facility]) Type 2 diabetes mellitus with hyperglycemia, with long-term current use of insulin ([facility]) Type 2 diabetes mellitus without complication ([facility]) Vitamin D deficiency Medications Current Outpatient Medications: acyclovir (Zovirax) 400 MG tablet, every 12 (twelve) hours., Disp: , Rfl: albuterol HFA 90 mcg/act inhaler, INHALE 2 PUFFS BY MOUTH EVERY 4 HOURS NEEDED FOR WHEEZING, Disp: 8.5 g, Rfl: 10 atorvastatin (Lipitor) 40 MG tablet, Take 1 tablet (40 mg) by mouth Daily, Disp: 30 tablet, Rfl: 11 Black Cohosh (Black Cohosh Hot Flash Relief) 40 MG capsule, Take 1 each by mouth Daily, Disp: 30 capsule, Rfl: 11 buPROPion XL (Wellbutrin XL) 300 MG 24 hr tablet, TAKE 1 TABLET BY MOUTH DAILY, Disp: 30 tablet, Rfl: 10 cholecalciferol (Vitamin D-3) 50 MCG (2000 UT) tablet, Take 2 tablets (100 mcg) by mouth Daily, Disp: 60 tablet, Rfl: 5 citalopram (CeleXA) 20 MG tablet, Take 20 mg by mouth Daily, Disp: , Rfl: Continuous Glucose Sensor (FreeStyle Crystal 3 Sensor) [facility], 1 each every 14 (fourteen) days, Disp: 2 each, Rfl: 11 cyclobenzaprine (Flexeril) 10 MG tablet, TAKE 1 TABLET BY MOUTH THREE TIMES DAILY NEEDED FOR MUSCLE SPASMS, Disp: 60 tablet, Rfl: 10 dicyclomine (Bentyl) 20 MG tablet, TAKE 1 (ONE) TABLET BY MOUTH FOUR TIMES DAILY, NEEDED, Disp: 60 tablet, Rfl: 10 fluconazole (Diflucan) 150 MG tablet, Take 150 mg by mouth 1 (one) time, Disp: , Rfl: furosemide (Lasix) 40 MG tablet, Take 1 tablet (40 mg) by mouth Daily, Disp: 30 tablet, Rfl: 5 insulin aspart FlexPen (NovoLOG) 100 UNIT/ML pen, INJECT SUBCUTANEOUSLY THREE TIMES A DAY PER SLIDING SCALE; *30 TO 40 UNITS DAILY*, Disp: 15 mL, Rfl: 5 insulin glargine (Semglee) 100 UNIT/ML pen, Inject 30 Units under the skin at bedtime, Disp: 9 mL, Rfl: 5 insulin pen needle (Droplet Pen Coward) 32G x 4 mm [facility], USE ONE PEN NEEDLE TO INJECT MEDICATION SIX TIMES A DAY, Disp: 200 each, Rfl: 10 O-Issyzfocrsua-Ifoug-B12-B6 (Metanx) 3-90.314-2-35 MG capsule, Take 3 mg by mouth in the morning and 3 mg before bedtime., Disp: 180 capsule, Rfl: 3 lamoTRIgine (LaMICtal) 200 MG tablet, Take 1 tablet (200 mg) by mouth at bedtime, Disp: 90 tablet, Rfl: 3 lanolin (Lansinoh) cream, Apply topically if needed for dry skin, Disp: 7 g, Rfl: 0 lisinopril 2.5 MG tablet, Take 1 tablet (2.5 mg) by mouth Daily, Disp: 30 tablet, Rfl: 5 LORazepam (Ativan) 1 MG tablet, Take 1 tablet (1 mg) by mouth 3 (three) times a day as needed for anxiety, Disp: 90 tablet, Rfl: 0 metoprolol tartrate (Lopressor) 50 MG tablet, take 1 tablet by mouth [address] AND 1 TABLET [address], Disp: , Rfl: nabumetone (Relafen) 500 MG tablet, Take 1 tablet (500 mg) by mouth 2 (two) times a day as needed for moderate pain, Disp: 60 tablet, Rfl: 3 oxybutynin XL (Ditropan-XL) 15 MG 24 hr tablet, Take 15 mg by mouth in the morning., Disp: , Rfl: pantoprazole (ProtoNix) 40 MG EC tablet, Take 1 tablet by mouth once daily, Disp: 30 tablet, Rfl: 5 pioglitazone (Actos) 45 MG tablet, Take 1 tablet (45 mg) by mouth Daily, Disp: 30 tablet, Rfl: 11 prazosin (Minipress) 2 MG capsule, , Disp: , Rfl: sertraline (Zoloft) 100 MG tablet, Take 2 tablets (200 mg) by mouth Daily, Disp: 60 tablet, Rfl: 11 SUMAtriptan (Imitrex) 25 MG tablet, TAKE 1 TABLET BY MOUTH NEEDED, Disp: 9 tablet, Rfl: 10 Tirzepatide (Mounjaro) 7.5 MG/0.5ML solution auto-injector, Inject 7.5 mg under the skin 1 (one) time per week, Disp: 2 mL, Rfl: 5 traZODone (Desyrel) 150 MG tablet, 1 (one) time each day at the same time., Disp: , Rfl: Trelegy Ellipta 200-62.5-25 MCG/ACT aerosol powder , Inhale 1 puff in the morning., Disp: , Rfl: Allergies Sulfamethoxazole-trimethoprim Past Surgical History Past Surgical History: Procedure Laterality Date ADENOIDECTOMY [...] 12/29/2017 Diagnostic laparoscopy LAPAROTOMY OVARIAN CYSTECTOMY 03/31/2023 [place] ARTHROCENTESIS ASPIR&/INJ MAJOR JT/BURSA W/O US Right Arthrocentesis of the right knee joint REQUEST FOR SCREENING COLONOSCOPY 04/01/2019 Colonoscopy, screening SALPINGECTOMY Bilateral 03/31/2023 FERREIRA WART REMOVAL 08/14/2015 genital wart removal TONSILLECTOMY Family History Family History Problem Relation Name Age of Onset Hypertension Mother Asthma Mother extrinsic Alzheimer's disease Father Diabetes Father Hypertension Father Hyperlipidemia Father Stroke Father No Known Problems Sister No Known Problems Brother Objective Physical Exam Constitutional: General: She is not in acute distress. Appearance: She is obese. Cardiovascular: Comments: DP pulse: 1/4 PT pulse: 1/4 Skin temperature is warm to cool Edema: Moderate nonpitting bilaterally Pulmonary: Effort: Pulmonary effort is normal. No respiratory distress. Musculoskeletal: Cervical back: Neck supple. No rigidity. Comments: Pedal deformities: Mild hammertoe contractures bilaterally. Pes planus morphology. Skin: Capillary Refill: Capillary refill takes less than 2 seconds. Comments: 7 toenails exhibit clinical mycosis with thickened appearance, yellow/brown discoloration, crumbly texture and subungual debris. Currently manicured for length, thickness. Hyperkeratotic tissue: Left foot: Plantar medial IPJ of the hallux Right foot: Plantar 1st MTP Skin is diffusely xerotic, thinned Hair growth: Absent Neurological: Mental Status: She is alert. Comments: Protective sensation intact at 3/10 pedal sites left foot, 8/10 right foot Vibratory sensation diminished at the 1st MTP bilaterally. Psychiatric: Mood and Affect: Mood normal. Behavior: Behavior normal. Assessment/Plan ICD-10-CM 1. Diabetic polyneuropathy associated with type 2 diabetes mellitus (CMS/HCC) E11.42 M-Gzdrdvfjkxvp-Ptaor-B12-B6 (Metanx) 3-90.314-2-35 MG capsule 2. Neuritis M79.2 U-Hqhauvaexnle-Gefps-B12-B6 (Metanx) 3-90.314-2-35 MG capsule Patient examined and evaluated. Discussed the a significant amount of her symptomatology is likely caused from diabetic neuropathy. She has had uncontrolled blood sugars recently although they do seem to be improving. Discussed causes and treatment options. At this time she does not have significant pain or tenderness from the neuropathy. I do not recommend nerve modulators. She would be an excellent candidate for Metanx which would avoid heavy side effect profile of nerve modulator medications. It would also have minimal interference with her other medications and I think that it could greatly improve some of her symptomatology. She was provided with a sample today and a prescription was sent to [facility]. I recommend follow up for at-risk diabetic foot evaluation. We will schedule this at her convenience. This note was created with the assistance of a speech recognition program. While intending to generate a timely document that accurately reflects the content of the visit, no guarantee can be provided that every grammatical or spelling mistake has been or will be identified or corrected. Thank you for your understanding. Carmen Bowman DPM documented in this encounter [facility] 10-07-2024 History of Present illness Narrative Carissa Gold Angela Date of visit: 10/07/2024 Date of : 1980 Age: 44 y.o. Patient Active Problem List Diagnosis Hyperglycemia Chest wall pain Type 2 diabetes mellitus with hyperglycemia, with long-term current use of insulin ([facility]) Mild developmental delay Obstructive sleep apnea syndrome Hyperlipidemia associated with type 2 diabetes mellitus ([facility]) Abnormal ECG during exercise stress test Mediastinal lymphadenopathy Acute cystitis without hematuria Pulmonary nodule Dyspnea on exertion Moderate persistent asthma without complication Chronic hypoxic respiratory failure ([facility]) BMI 40.0-44.9, adult ([facility]) Pulmonary hypertension ([facility]) COPD (chronic obstructive pulmonary disease) ([facility]) Chronic heart failure with preserved ejection fraction ([facility]) Allergies Allergen Reactions Sulfamethoxazole-Trimethoprim Hives, Itching and [...] Units total) by mouth in the morning. citalopram (CeleXA) 20 mg tablet clonazePAM (KlonoPIN) 1 mg tablet Take 1 tablet (1 mg total) by mouth 2 (two) times a day as needed for seizures. cyclobenzaprine (FLEXERIL) 10 mg tablet Take 1 tablet (10 mg total) by mouth 3 (three) times a day as needed for muscle spasms. 30 tablet 0 dicyclomine (BENTYL) 20 mg tablet Take 1 tablet (20 mg total) by mouth every 6 (six) hours. FREESTYLE CRYSTAL 14 DAY SENSOR kit APPLY 1 SENSOR TO BACK OF UPPER ARM. REMOVE AND REPLACE EVERY 14 DAYS furosemide (LASIX) 20 mg tablet Take 1 tablet (20 mg total) by mouth daily. 90 tablet 3 insulin aspart U-100 (NovoLOG) 100 unit/mL (3 mL) insulin pen 3 (three) times a day with meals. insulin glargine (LANTUS) 100 unit/mL injection Inject 0.15 mL (15 Units total) under the skin in the morning. lamoTRIgine (LaMICtal) 200 mg tablet Take 1 tablet (200 mg total) by mouth in the morning. Indications: bipolar depression. lisinopriL (PRINIVIL,ZESTRIL) 2.5 mg tablet take 1 tablet by mouth every morning 30 tablet 2 LORazepam (ATIVAN) 1 mg tablet Take 1 tablet (1 mg total) by mouth Three times daily as needed. nabumetone (RELAFEN) 500 mg tablet Take 1 tablet (500 mg total) by mouth 2 (two) times a day as needed. naproxen (NAPROSYN) 500 mg tablet Take 1 tablet (500 mg total) by mouth in the morning and 1 tablet (500 mg total) in the evening. Take with meals. 30 tablet 0 pantoprazole (PROTONIX) 40 mg EC tablet Take 1 tablet (40 mg total) by mouth every morning before breakfast. sertraline (ZOLOFT) 100 mg tablet Take 1 tablet (100 mg total) by mouth in the morning. topiramate (TOPAMAX) 25 mg capsule Take 1 capsule (25 mg total) by mouth in the morning and 1 capsule (25 mg total) before bedtime. TRELEGY ELLIPTA 200-62.5-25 mcg blister with device Inhale 1 puff in the morning. empagliflozin (JARDIANCE) 10 mg tablet tablet Take 1 tablet (10 mg total) by mouth in the morning. 90 tablet 3 MOUNJARO 2.5 mg/0.5 mL pen injector Inject 5 mg under the skin once a week for 12 doses. 0.5 mL 3 No current facility-administered medications for this visit. Chief Complaint Patient presents with Follow-up 3 MONTHS Shortness of Breath ON EXERTION History of Present Illness I last saw this 44-year-old 06/2024 She has a history of type 2 diabetes and hyperlipidemia associated with type 2 diabetes She has chronic shortness of breath. The shortness of breath is limiting and worsening. She has not had chest pain. She has not had syncope or edema She is also seen by Dr. Meenakshi Ferrer is . Her was acutely ill several months ago with a gangrenous gallbladder. He is improving She does not work outside the home secondary to mild developmental delay. She is accompanied today by her aide, Gosia, from the [facility]/social media marketing specialist CV TESTING HISTORY: ECHO: Echo complete W/ contrast Result Date: 05/14/2024 Left Ventricle: Left ventricle appears normal in size. Wall thickness is normal. Systolic function is normal with an ejection fraction of 60-65%. The quantitative EF by 2D Brush biplane is 65%. Right Ventricle: Right ventricular size appears normal. Systolic function is normal. No significant valvular stenosis or regurgitation. Echo complete W/ contrast Result Date: 06/05/2023 Left Ventricle: Systolic function is normal with an ejection fraction of 65-70%. The quantitative EF by 2D Brush biplane is 68%. No significant valvular disease noted. STRESS: No results found. HOLTER: No results found. CARDIAC CATH: No results found. CAROTID: No results found. CXR: X-ray chest 1 view Result Date: 07/21/2024 XR CHEST 1 VW IMPRESSION: Clinical Information: chest pain Comparison: 06/28/24. * No pulmonary edema or consolidation. * No effusions. * Stable heart size. * Mild elevation right hemidiaphragm. Finalized by Shama Calvin MD on 07/21/2024 5:08 PM Lipid Profile: Lab Results Component Value Date Cholesterol 249 (H) 06/07/2022 Cholesterol:HDL Ratio 4.7 06/07/2022 HDL Cholesterol 53 06/07/2022 Triglycerides 241 (H) 06/07/2022 LDL (calc) 148 (H) 06/07/202206/2024 right heart catheterization Normal left-sided filling pressure, mean wedge 15 Mildly elevated right-sided filling pressure, mean RA 11 Pulmonary hypertension, 46/23, mean PA 33 Mixed venous saturation 71% Normal cardiac output/index by Cristopher and thermodilution Cristopher 5.85/2.99 Thermodilution 7.27/3.71 Past Medical History: Diagnosis Date Anxiety Deep vein thrombosis (CMS-HCC) Dental disease no teeth Depression Diabetes mellitus type I (CMS-HCC) Elevated cholesterol GERD (gastroesophageal reflux disease) Hyperlipidemia Hypertension Lymphadenopathy 2023 MR (mental retardation) Obesity Panic disorder Visual impairment Past Surgical History: Procedure Laterality Date Cardiac Invasive N/A 06/26/2024 Performed by Harinder Estrella MD at [facility] CARDIAC CATH LABS CHOLECYSTECTOMY COLONOSCOPY 2021 COLONOSCOPY DIAGNOSTIC / SCREENING N/A 09/12/2024 Performed by Aliya Solorzano DO at [facility] ENDOBRONCHIAL ULTRASOUND BRONCHOSCOPY N/A 11/22/2023 Performed by Libby Finley MD at [facility] Right heart cath N/A 06/26/2024 Performed by Harinder Estrella MD at [facility] CARDIAC CATH LABS TONSILLECTOMY TUBAL LIGATION Bilateral 2017 Family History Problem Relation Age of Onset Diabetes Mother Heart attack Mother Cancer Father Anesthesia problems Neg Hx Social History Socioeconomic History Marital status: Spouse name: Not on file Number of children: Not on file Years of education: Not on file Highest education level: Not on file Occupational History Not on file Tobacco Use Smoking status: Never Smokeless tobacco: Never Vaping Use Vaping status: Never Used Substance and Sexual Activity Alcohol use: Not Currently Drug use: Never Sexual activity: Defer Other Topics Concern Caffeine Use Yes Social History Narrative Not on file Social Drivers of Health Financial Resource Strain: Low Risk (12/20/2023) Overall Financial Resource Strain (CARDIA) Difficulty of Paying Living Expenses: Not hard at all Food Insecurity: No Food Insecurity (10/07/2024) Hunger Screening Food Insecurity - Worry: Never True Food Insecurity - Inability: Never True Transportation Needs: No Transportation Needs (07/21/2024) PRAPARE - Transportation Lack of Transportation (Medical): No Lack of Transportation (Non-Medical): No Physical Activity: Insufficiently Active (12/20/2023) Exercise Vital Sign Days of Exercise per Week: 3 days Minutes of Exercise per Session: 10 min Stress: No Stress Concern Present (12/20/2023) [place] of Occupational Health - Occupational Stress Questionnaire Feeling of Stress : Only a little Social Connections: Moderately Isolated (12/20/2023) Social Connection and Isolation Panel [NHANES] Frequency of Communication with Friends and Family: More than three times a week Frequency of Social Gatherings with Friends and Family: More than three times a week Attends [employer] Services: Never Active Member of Clubs or Organizations: No Attends Club or Organization Meetings: Never Marital Status: Interpersonal Safety: Not At Risk (07/21/2024) Humiliation, Afraid, Rape, and Kick questionnaire Fear of Current or Ex-Partner: No Emotionally Abused: No Physically Abused: No Sexually Abused: No Housing Instability: Low Risk (07/21/2024) Housing Instability Housing Instability: No Review of Systems Review of Systems Constitutional: Negative. HENT: Negative. Eyes: Negative. Respiratory: Negative. Hematologic/Lymphatic: Negative. Skin: Negative. Musculoskeletal: Negative. Gastrointestinal: Negative. Neurological: Negative. Psychiatric/Behavioral: The patient is nervous/anxious. Allergic/Immunologic: Negative. CARDIOVASCULAR: Please review HPI. Physical Examination General appearance: Alert, oriented and cooperative. In no acute distress. Skin: Warm and dry to touch. Respiratory: Bilateral mildly diminished Cardiovascular: RRR with normal S1 and S2 with no murmurs. Musculoskeletal: Scant bilateral lower extremity edema VITAL SIGNS: BP 102/70 (BP Site: Left Arm, BP Postition: Sitting) Pulse 97 Ht 154.9 cm (5' 1 ) Wt 100.2 kg (221 lb) SpO2 97% BMI 41.76 kg/m Orders Placed or Reconciled This Encounter Medications MOUNJARO 2.5 mg/0.5 mL pen injector Sig: Inject 5 mg under the skin once a week for 12 doses. Dispense: 0.5 mL Refill: 3 empagliflozin (JARDIANCE) 10 mg tablet tablet Sig: Take 1 tablet (10 mg total) by mouth in the morning. Dispense: 90 tablet Refill: 3 Medications Discontinued During This Encounter Medication Reason sodium chloride 0.9 % flush 10 mL pioglitazone (ACTOS) 45 mg tablet MOUNJARO 2.5 mg/0.5 mL pen injector Reorder IMPRESSIONS/PLAN 1. Dyspnea on exertion 2. Chronic heart failure with preserved ejection fraction ([facility]) 3. Type 2 diabetes mellitus with hyperglycemia, with long-term current use of insulin ([facility]) - MOUNJARO 2.5 mg/0.5 mL pen injector; Inject 5 mg under the skin once a week for 12 doses. Dispense: 0.5 mL; Refill: 3 1. CTA of the coronaries with calcium score of 0 08/2023 --no stenosis or plaque seen within the coronary system 2. Type 2 diabetes 3. Hyperlipidemia associated with type 2 diabetes 4. Obstructive sleep apnea 5. Chronic hypoxic respiratory failure -3 L of oxygen per nasal cannula --reduced DLCO on PFT 6. Right upper lobe pulmonary nodule 1.5 cm stable x2 years -negative on PET 6. Status post salpingectomy 7. Developmental delay 8. Echocardiogram without evidence of significant tricuspid regurgitation/pulmonary hypertension 9. Right heart catheterization 06/2024 with mild pulmonary hypertension Likely secondary to obesity and obstructive sleep apnea 10. Chronic heart failure with preserved ejection fraction -Lasix started at last visit 11. BMI greater than 40 Actos discontinued as it can tend to cause fluid retention SGLP2 added Tirzepatide to be increased Limit naproxen/Naprosyn/NSAIDs as much as able She will continue to follow with Dr Dalton for insulin adjustments. She endorses taking her blood sugar regularly Slowly increase activity TODAYS ORDERS No orders of the defined types were placed in this encounter. FOLLOW UP Return in about 3 months (around 01/04/2025). PCP: DIAZ DALTON MD Referring Physician: Diaz Dalton MD [address] [place] [address] documented in this encounter [facility] 10-07-2024 Instructions Katelyn Recio MD - 10/07/2024 8:15 AM EST Discontinue Actos Start Jardiance Increase tirzepatide/Mounjaro documented in this encounter [facility] 10-04-2024 Miscellaneous Notes Called patient to remind them to bring their most current copy of their medication list with them to their appt. Patient verbalizes understanding. documented in this encounter [facility] 10-04-2024 Telephone encounter Note Called patient to remind them to bring their most current copy of their medication list with them to their appt. Patient verbalizes understanding. [facility] 09-17-2024 Miscellaneous Notes ----- Message from Dr. Aliya Solorzano, DO sent at 09/17/2024 10:23 AM EST ----- Please let patient know that we did not get a polyp ibut I do recommend surveillance colonoscopy in 5 years because there was a polyp but it was not retrieved. Thanks, Dr. Lawrence Spoke with patient regarding pathology results. Patient verbally understood with no further questions. Recall put in chart. documented in this encounter [facility] 09-17-2024 Telephone encounter Note ----- Message from Dr. Aliya Solorzano, sent at 09/17/2024 10:23 AM EST ----- Please let patient know that we did not get a polyp ibut I do recommend surveillance colonoscopy in 5 years because there was a polyp but it was not retrieved. Thanks, Dr. Lawrence [facility] 09-17-2024 Telephone encounter Note Spoke with patient regarding pathology results. Patient verbally understood with no further questions. Recall put in chart. [facility] G[facility]ven[facility]beri 09-05-2024 Miscellaneous Notes Preoperative Education Checklist- General Surgery date: 09/12/24 Surgery time: 1130 Arrival time: 929 1. Bring a photo ID and your insurance card with you the day of surgery. You will check in at the main lobby of the [facility]- registration desk is straight ahead as soon as you walk in. Tell them you are here for surgery. 2. If you have a Living Will/Durable Power of Inside Plant Supervisor for Health Care that is not on file here, please bring a copy the day of surgery. 3. Please shower/bathe the night before surgery with the provided soap or wipes. Do not shower the morning of surgery- you will do use wipes when you arrive here at the hospital before getting into your surgical gown. Do not shave the area of your procedure for 2 days prior to your surgery. 4. NO powder, lotion, perfume/cologne, aftershave, make-up, deodorant, or hair products after you have bathed. 5. NO nail st lucian/acrylic on at least one finger. If you are having a hand, wrist or foot surgery then all nail st lucian and artificial/acrylic nails must be removed from that hand or foot. 6. Avoid ALL Aspirin and non-steroidal anti-inflammatory drugs and certain vitamins (Ibuprofen, Advil, Aleve, Excedrin, Meloxicam, Celebrex, fish/krill oil, etc.) for 7 days prior to surgery as instructed by your surgeon and/or your prescribing doctor. Tylenol IS ALLOWED. If you are on Ticlid, Xarelto, Eliquis, Pradaxa, Plavix or Coumadin, please check with your prescribing doctor for instructions for when to stop them. 7. If you use an inhaler, continue to use it routinely. 8. Nothing to eat or drink (not even water, gum, mints, or hard candy!) AFTER midnight prior to your surgery. 9. Take only medications that you are instructed to on the morning of surgery with a TINY SIP OF WATER. 10. Choose a responsible adult that will be able to drive you home when you are discharged from your hospital stay for your surgery and can stay with you in your home for 24 hours after your procedure. You must NOT drive any vehicle or operate any machinery for 24 hours after surgery. 11. When you dress for your appointment, please wear loose fitting clothing that is appropriate to accommodate your surgical area procedure. BRING WITH YOU ANY DEVICES YOU MAY NEED: EUGENIA hose, ice machine, sling/swath, brace or special shoe, oversized zip-up or button up shirt, CPAP machine if staying overnight. 12. Do NOT wear jewelry, watches, or any piercings or metal for surgery- leave these valuables and money at home. 13. Do NOT wear contact lenses for surgery- glasses are okay if needed. 14. The anesthesiologist will talk with you the day of surgery and will ask you to sign a Consent Form. 15. Refrain from smoking or any type of tobacco use for at least 8 hours and marijuana for 24 hours prior to arrival for your surgery. 16. If a GREEN BLOOD band is given to you, please bring it with you for the day of surgery. 17. Notify your surgeon if you develop any illness before your surgery. 18. If you are staying overnight, please DO NOT BRING your home medications with you. 19. If you have any questions prior to surgery, please call the Preadmission Testing office at [phone], Mon.-Fri. 7 a.m.-3 p.m. Leave a voicemail if needed. Pre-Surgery Instructions: Medication Instructions albuterol (PROVENTIL HFA;VENTOLIN HFA) 90 mcg/actuation inhaler Take morning of procedure if needed atorvastatin (LIPITOR) 40 mg tablet Stop taking 0 days prior to procedure buPROPion XL (WELLBUTRIN XL) 300 mg 24 hr tablet Stop taking 0 days prior to procedure cholecalciferol, vitamin D3, 400 units tablet Stop taking 0 days prior to procedure citalopram (CeleXA) 20 mg tablet Stop taking 0 days prior to procedure clonazePAM (KlonoPIN) 1 mg tablet Stop taking 0 days prior to procedure cyclobenzaprine (FLEXERIL) 10 mg tablet Stop taking 0 days prior to procedure dicyclomine (BENTYL) 20 mg tablet Stop taking 0 days prior to procedure FREESTYLE CRYSTAL 14 DAY SENSOR kit Stop taking 0 days prior to procedure furosemide (LASIX) 20 mg tablet Stop taking 0 days prior to procedure insulin aspart U-100 (NovoLOG) 100 unit/mL (3 mL) insulin pen Stop taking 0 days prior to procedure insulin glargine (LANTUS) 100 unit/mL injection Take last dose day before procedure- 7 units the night before lamoTRIgine (LaMICtal) 200 mg tablet Stop taking 0 days prior to procedure lisinopriL (PRINIVIL,ZESTRIL) 2.5 mg tablet Take morning of procedure LORazepam (ATIVAN) 1 mg tablet Stop taking 0 days prior to procedure MOUNJARO 2.5 mg/0.5 mL pen injector Stop taking 1 week prior to procedure nabumetone (RELAFEN) 500 mg tablet Stop taking 1 week prior to procedure naproxen (NAPROSYN) 500 mg tablet Stop taking 1 week prior to procedure pantoprazole (PROTONIX) 40 mg EC tablet Take morning of procedure pioglitazone (ACTOS) 45 mg tablet Stop taking 0 days prior to procedure sertraline (ZOLOFT) 100 mg tablet Stop taking 0 days prior to procedure sod sulf-pot chloride-mag sulf 1.479-0.188- 0.225 gram tablet Stop taking 0 days prior to procedure topiramate (TOPAMAX) 25 mg capsule Stop taking 0 days prior to procedure TRELEGY ELLIPTA 200-62.5-25 mcg blister with device Take morning of procedure [facility] Nurse Note Preoperative Education Checklist- General Surgery date: 09/12/24 Surgery time: 1130 Arrival time: 30 1. Bring a photo ID and your insurance card with you the day of surgery. You will check in at the main lobby of the [facility]- registration desk is straight ahead as soon as you walk in. Tell them you are here for surgery. 2. If you have a Living Will/Durable Power of Inside Plant Supervisor for Health Care that is not on file here, please bring a copy the day of surgery. 3. Please shower/bathe the night before surgery with the provided soap or wipes. Do not shower the morning of surgery- you will do use wipes when you arrive here at the hospital before getting into your surgical gown. Do not shave the area of your procedure for 2 days prior to your surgery. 4. NO powder, lotion, perfume/cologne, aftershave, make-up, deodorant, or hair products after you have bathed. 5. NO nail [address] lucian/acrylic on at least one finger. If you are having a hand, wrist or foot surgery then all nail st lucian and artificial/acrylic nails must be removed from that hand or foot. 6. Avoid ALL Aspirin and non-steroidal anti-inflammatory drugs and certain vitamins (Ibuprofen, Advil, Aleve, Excedrin, Meloxicam, Celebrex, fish/krill oil, etc.) for 7 days prior to surgery as instructed by your surgeon and/or your prescribing doctor. Tylenol IS ALLOWED. If you are on Ticlid, Xarelto, Eliquis, Pradaxa, Plavix or Coumadin, please check with your prescribing doctor for instructions for when to stop them. 7. If you use an inhaler, continue to use it routinely. 8. Nothing to eat or drink (not even water, gum, mints, or hard candy!) AFTER midnight prior to your surgery. 9. Take only medications that you are instructed to on the morning of surgery with a TINY SIP OF WATER. 10. Choose a responsible adult that will be able to drive you home when you are discharged from your hospital stay for your surgery and can stay with you in your home for 24 hours after your procedure. You must NOT drive any vehicle or operate any machinery for 24 hours after surgery. 11. When you dress for your appointment, please wear loose fitting clothing that is appropriate to accommodate your surgical area procedure. BRING WITH YOU ANY DEVICES YOU MAY NEED: EUGENIA hose, ice machine, sling/swath, brace or special shoe, oversized zip-up or button up shirt, CPAP machine if staying overnight. 12. Do NOT wear jewelry, watches, or any piercings or metal for surgery- leave these valuables and money at home. 13. Do NOT wear contact lenses for surgery- glasses are okay if needed. 14. The anesthesiologist will talk with you the day of surgery and will ask you to sign a Consent Form. 15. Refrain from smoking or any type of tobacco use for at least 8 hours and marijuana for 24 hours prior to arrival for your surgery. 16. If a GREEN BLOOD band is given to you, please bring it with you for the day of surgery. 17. Notify your surgeon if you develop any illness before your surgery. 18. If you are staying overnight, please DO NOT BRING your home medications with you. 19. If you have any questions prior to surgery, please call the Preadmission Testing office at [phone], Mon.-Fri. 7 a.m.-3 p.m. Leave a voicemail if needed. Pre-Surgery Instructions: Medication Instructions albuterol (PROVENTIL HFA;VENTOLIN HFA) 90 mcg/actuation inhaler Take morning of procedure if needed atorvastatin (LIPITOR) 40 mg tablet Stop taking 0 days prior to procedure buPROPion XL (WELLBUTRIN XL) 300 mg 24 hr tablet Stop taking 0 days prior to procedure cholecalciferol, vitamin D3, 400 units tablet Stop taking 0 days prior to procedure citalopram (CeleXA) 20 mg tablet Stop taking 0 days prior to procedure clonazePAM (KlonoPIN) 1 mg tablet Stop taking 0 days prior to procedure cyclobenzaprine (FLEXERIL) 10 mg tablet Stop taking 0 days prior to procedure dicyclomine (BENTYL) 20 mg tablet Stop taking 0 days prior to procedure FREESTYLE CRYSTAL 14 DAY SENSOR kit Stop taking 0 days prior to procedure furosemide (LASIX) 20 mg tablet Stop taking 0 days prior to procedure insulin aspart U-100 (NovoLOG) 100 unit/mL (3 mL) insulin pen Stop taking 0 days prior to procedure insulin glargine (LANTUS) 100 unit/mL injection Take last dose day before procedure- 7 units the night before lamoTRIgine (LaMICtal) 200 mg tablet Stop taking 0 days prior to procedure lisinopriL (PRINIVIL,ZESTRIL) 2.5 mg tablet Take morning of procedure LORazepam (ATIVAN) 1 mg tablet Stop taking 0 days prior to procedure MOUNJARO 2.5 mg/0.5 mL pen injector Stop taking 1 week prior to procedure nabumetone (RELAFEN) 500 mg tablet Stop taking 1 week prior to procedure naproxen (NAPROSYN) 500 mg tablet Stop taking 1 week prior to procedure pantoprazole (PROTONIX) 40 mg EC tablet Take morning of procedure pioglitazone (ACTOS) 45 mg tablet Stop taking 0 days prior to procedure sertraline (ZOLOFT) 100 mg tablet Stop taking 0 days prior to procedure sod sulf-pot chloride-mag sulf 1.479-0.188- 0.225 gram tablet Stop taking 0 days prior to procedure topiramate (TOPAMAX) 25 mg capsule Stop taking 0 days prior to procedure TRELEGY ELLIPTA 200-62.5-25 mcg blister with device Take morning of procedure [facility] 08-06-2024 History of Present illness Narrative Reason for Appointment: Patient ID: Carissa Santos is a 44 y.o. female who presents for Well Women Visit Patient presents today for Annual Exam. MEDICATIONS Current Outpatient Medications Medication Instructions acyclovir (Zovirax) 400 MG tablet Every 12 hours albuterol HFA 90 mcg/act inhaler 2 puffs, Inhalation, Every 4 hours PRN atorvastatin (LIPITOR) 40 mg, Oral, Daily Black Cohosh (Black Cohosh Hot Flash Relief) 40 MG capsule 1 each, Oral, Daily buPROPion XL (WELLBUTRIN XL) 300 mg, Oral, Daily cholecalciferol (VITAMIN D-3) 100 mcg, Oral, Daily citalopram (CELEXA) 20 mg, Oral, Daily Continuous Blood Gluc Sensor (FreeStyle Crystal 14 Day Sensor) [facility] apply 1 SENSOR to back OF UPPER ARM REMOVE AND REPLACE every 14 d... (REFER TO PRESCRIPTION NOTES). cyclobenzaprine (FLEXERIL) 10 mg, Oral, 3 times daily PRN dicyclomine (Bentyl) 20 MG tablet TAKE 1 (ONE) TABLET BY MOUTH FOUR TIMES DAILY, NEEDED fluconazole (DIFLUCAN) 150 mg, Oral, Once furosemide (LASIX) 40 mg, Oral, Daily insulin aspart FlexPen (NovoLOG) 100 UNIT/ML pen INJECT SUBCUTANEOUSLY THREE TIMES A DAY PER SLIDING SCALE; *30 TO 40 UNITS DAILY* insulin pen needle (Droplet Pen Coward) 32G x 4 mm [facility] USE ONE PEN NEEDLE TO INJECT MEDICATION SIX TIMES A DAY lamoTRIgine (LAMICTAL) 200 mg, Oral, Nightly lanolin (Lansinoh) cream Topical, As needed lisinopril 2.5 mg, Oral, Daily LORazepam (ATIVAN) 1 mg, Oral, 3 times daily PRN metoprolol tartrate (Lopressor) 50 MG tablet take 1 tablet by mouth [address] AND 1 TABLET [address] Mounjaro 7.5 mg, Subcutaneous, Weekly nabumetone (Relafen) 500 MG tablet TAKE 1 TABLET BY MOUTH TWICE DAILY IF NEEDED oxybutynin XL (DITROPAN-XL) 15 mg, Oral, Daily pantoprazole (ProtoNix) 40 MG EC tablet Take 1 tablet by mouth once daily pioglitazone (ACTOS) 45 mg, Oral, Daily prazosin (Minipress) 2 MG capsule Semglee 30 Units, Subcutaneous, Nightly sertraline (ZOLOFT) 200 mg, Oral, Daily SUMAtriptan (IMITREX) 25 mg, Oral, As needed traZODone (Desyrel) 150 MG tablet Every 24 hours Trelegy Ellipta 200-62.5-25 MCG/ACT aerosol powder 1 puff, Inhalation, Daily RT ALLERGIES Allergies Allergen Reactions Sulfamethoxazole-Trimethoprim Hives and Itching PROBLEMS Active Ambulatory Problems Diagnosis Date Noted Allergic rhinitis due to allergen 10/01/2009 JOHN (generalized anxiety disorder) ([facility]) 10/01/2009 Contracture, unspecified ankle 04/06/2023 Chronic heart failure with preserved ejection fraction (HFpEF) ([facility]) 04/06/2023 Equinus deformity of left foot 04/06/2023 Gastroesophageal reflux disease 04/06/2023 Genital warts 04/06/2023 Hot flashes due to menopause 04/06/2023 Type 2 diabetes mellitus with microalbuminuria, with long-term current use of insulin ([facility]) 04/06/2023 Internal derangement of left shoulder 04/06/2023 Irritable bowel syndrome with diarrhea 04/06/2023 Mild developmental delay 09/29/2021 Migraine without aura and without status migrainosus, not intractable ([facility]) 04/06/2023 Mild episode of recurrent major depressive disorder (HCC) ([facility]) 04/06/2023 Class 3 severe obesity due to excess calories with serious comorbidity and body mass index (BMI) of 40.0 to 44.9 in adult ([facility]) 11/21/2022 Type 2 diabetes mellitus with polyneuropathy ([facility]) 06/10/2021 Obstructive sleep apnea syndrome 09/30/2009 Osteoarthritis of knee 04/06/2023 Overactive bladder 04/06/2023 Panic disorder without agoraphobia ([facility]) 11/12/2009 Dyslipidemia ([facility]) 04/22/2010 Spondylosis without myelopathy 08/10/2010 Hypoxia 01/04/2024 Obesity hypoventilation syndrome ([facility]) 01/04/2024 Elevated blood-pressure reading without diagnosis of hypertension 01/04/2024 Right carpal tunnel syndrome 01/04/2024 Type 2 diabetes mellitus with hyperglycemia, with long-term current use of insulin ([facility]) 02/12/2024 Chronic hypoxic respiratory failure ([facility]) 02/19/2024 Moderate persistent asthma without complication ([facility]) 02/19/2024 Pulmonary hypertension ([facility]) 08/06/2024 Resolved Ambulatory Problems Diagnosis Date Noted Acute kidney injury (DREW) with acute tubular necrosis (ATN) ([facility]) 09/30/2021 Acute pain of left shoulder 04/06/2023 Shoulder joint pain 04/06/2021 Carpal tunnel syndrome of left wrist 04/06/2023 Convulsions in the 09/30/2009 Cubital tunnel syndrome on left 11/04/2022 Fecal incontinence 06/22/2016 High anion gap metabolic acidosis 09/30/2021 Hyperglycemia 03/01/2019 Mild intellectual disability ([facility]) 09/30/2009 Other chronic pain 04/06/2023 Pneumonia due to infectious organism 09/29/2021 Poorly controlled diabetes mellitus ([facility]) 08/10/2015 Normal gynecologic examination 06/09/2015 Missed period 04/06/2023 DKA, type 1, not at goal ([facility]) 09/27/2021 Type 2 diabetes mellitus ([facility]) 09/30/2009 Cavitary lesion of lung 08/10/2023 Other chest pain 08/10/2023 Acute pain of right knee 05/29/2024 Past Medical History: Diagnosis Date Ankle fracture Anxiety and depression ([facility]) At low risk for fall Bilateral leg edema Chest pain, central Chronic left shoulder pain Chronic pain Chronic respiratory failure ([facility]) Epilepsy ([facility]) GERD (gastroesophageal reflux disease) History of being hospitalized History of medical problems Hyperlipidemia ([facility]) Insomnia, persistent MDD (major depressive disorder), recurrent episode, mild (HCC) ([facility]) Morbid obesity with BMI of 40.0-44.9, adult ([facility]) Nocturnal hypoxemia Nonsmoker OAB (overactive bladder) Obesity JOSE M (obstructive sleep apnea) Postoperative urinary retention Primary osteoarthritis of left knee Seasonal allergies Type 2 diabetes mellitus with diabetic polyneuropathy, with long-term current use of insulin ([facility]) Type 2 diabetes mellitus without complication ([facility]) Vitamin D deficiency HISTORY PAST MEDICAL HISTORY SOCIAL HISTORY Past Medical History: Diagnosis Date Ankle fracture Anxiety and depression ([facility]) At low risk for fall Bilateral leg edema Chest pain, central Chronic left shoulder pain Chronic pain Chronic respiratory failure ([facility]) Dyslipidemia ([facility]) Epilepsy ([facility]) Childhood epilepsy JOHN (generalized anxiety disorder) ([facility]) Genital warts GERD (gastroesophageal reflux disease) History of being hospitalized pneumonia, diabetes, infection [10/29/21-11/05/21] History of medical problems mild mental retardation Hyperlipidemia ([facility]) Insomnia, persistent Irritable bowel syndrome with diarrhea MDD (major depressive disorder), recurrent episode, mild (HCC) ([facility]) Migraine without aura and without status migrainosus, not intractable ([facility]) Morbid obesity with BMI of 40.0-44.9, adult ([facility]) Nocturnal hypoxemia Nonsmoker OAB (overactive bladder) Obesity JOSE M (obstructive sleep apnea) Postoperative urinary retention Primary osteoarthritis of left knee Seasonal allergies Type 2 diabetes mellitus with diabetic polyneuropathy, with long-term current use of insulin ([facility]) Type 2 diabetes mellitus with hyperglycemia, with long-term current use of insulin ([facility]) Type 2 diabetes mellitus without complication ([facility]) Vitamin D deficiency Social History Tobacco Use [...] 12/29/2017 Diagnostic laparoscopy LAPAROTOMY OVARIAN CYSTECTOMY 03/31/2023 [place] ARTHROCENTESIS ASPIR&/INJ MAJOR JT/BURSA W/O US Right Arthrocentesis of the right knee joint REQUEST FOR SCREENING COLONOSCOPY 04/01/2019 Colonoscopy, screening SALPINGECTOMY Bilateral 03/31/2023 FERREIRA WART REMOVAL 08/14/2015 genital wart removal TONSILLECTOMY REVIEW OF SYSTEMS Review of Systems: Review of Systems Constitutional: Negative. HENT: Negative. Eyes: Negative. Respiratory: Negative. Cardiovascular: Negative. Gastrointestinal: Negative. Genitourinary: Negative. Musculoskeletal: Negative. Skin: Negative. Neurological: Negative. All other systems reviewed and are negative. Hematological: Negative. Endocrine: Negative. Allergic/Immunologic: Negative. OBJECTIVE Objective: Physical Exam Constitutional: Appearance: Normal appearance. She is well-developed. Genitourinary: Vulva normal. Breasts: Breasts are soft. Right: Normal. Left: Normal. Cardiovascular: Rate and Rhythm: Normal rate and [...] nursing note reviewed. Exam conducted with a director of human resources present. Vitals: Estimated body mass index is 42.89 kg/m as calculated from the following: Height as of an earlier encounter on 08/06/24: 5' 1 . Weight as of an earlier encounter on 08/06/24: 227 lb. BP: No LMP recorded. ASSESSMENT & PLAN ICD-10-CM 1. Well woman exam with routine gynecological exam Z01.419 THIN PREP TIS PAP AND HR HPV DNA Annual: Patient presents today for an annual exam. Patient states she is doing well and has no complaints. Pap was obtained without difficulty and patient given mammogram order to have scheduled/obtained. No orders of the defined types were placed in this encounter. Follow Up: Patient is to return in one year for annual unless needed otherwise. Documented by Dayanara Wheatley LPN on behalf of: Feliz Benz DO documented in this encounter [facility] 08-06-2024 History of Present illness Narrative Associated Problem(s): Type 2 diabetes mellitus with hyperglycemia, with long-term current use of insulin ([facility]) BS elevated with steroids and monitor. A1C improved but still elevated and increase mounjaro. Associated Problem(s): Pulmonary hypertension ([facility]/HCC) Continued SOB and follow with specialists. Associated Problem(s): Chronic hypoxic respiratory failure (CMS/HCC) On home oxygen and follow with pulmonology. Associated Problem(s): Chronic heart failure with preserved ejection fraction (HFpEF) ([facility]) No change with lasix and increase to 40 mg. Images from the original note were not included. Subjective Patient ID: Carissa Santos is a 44 y.o. female who presents for Follow-up ([facility] f/UP). ER follow up from 07/21 for [...] to General Surgery documented in this encounter [facility] 07-30-2024 History of Present illness Narrative Received critical lab result from blood work drawn today of a glucose of 577. Spoke with patient on the phone. She states her blood sugars have been running high all day. She was instructed to call her PCP for further instructions. She is on insulin. DUSTIN Rausch 07/30/249 documented in this encounter [facility] 07-30-2024 Miscellaneous Notes Contract: [facility] on patient. Please call Shahrzad @ [phone]. Sent secure chat to Cassy Davila documented in this encounter [facility] 07-30-2024 Telephone encounter Note Contract: ROBBY Markham calling from [facility] second page for critical lab on patient. Please call Shahrzad @ [phone]. Sent secure chat to Cassy Davila [facility] 07-30-2024 Miscellaneous Notes Contract: ROBBY See for Critical Lab Secure Chat sent to Cassy Davila CNP Routing sent documented in this encounter [facility] 07-30-2024 Telephone encounter Note Contract: [facility] Dr See for Critical Lab [facility] 07-30-2024 Telephone encounter Note Secure Chat sent to Cassy Davila PACKER INSPECTOR Routing sent [facility] 07-18-2024 History of Present illness Narrative Carissa Santos Date of visit: 07/18/2024 Date of : 1980 Age: 43 y.o. Patient Active Problem List Diagnosis Hyperglycemia Chest pain, unspecified Type 2 diabetes mellitus with hyperglycemia, with long-term current use of insulin ([facility]) Mild developmental delay Obstructive sleep apnea syndrome Hyperlipidemia associated with type 2 diabetes mellitus ([facility]) Abnormal ECG during exercise stress test Mediastinal lymphadenopathy Acute cystitis without hematuria Pulmonary nodule Dyspnea on exertion Moderate persistent asthma without complication Chronic hypoxic respiratory failure ([facility]) BMI 45.0-49.9, adult ([facility]) Pulmonary hypertension ([facility]) Allergies Allergen Reactions Sulfamethoxazole-Trimethoprim Hives, Itching and [...] total) by mouth every 6 (six) hours. qsaprguihog-wmwvrppdb-kejubdct (TRELEGY ELLIPTA) 200-62.5-25 mcg blister with device [...] % flush 10 mL 10 mL intravenous PRN Maxx Pantoja MD 10 mL at 10/20/23 0900 [...] History: Diagnosis Date Anxiety Deep vein thrombosis ([facility]) Dental disease no teeth Depression Diabetes mellitus type I ([facility]) Elevated cholesterol GERD (gastroesophageal reflux disease) Hyperlipidemia Hypertension Lymphadenopathy 2023 MR (mental retardation) Obesity Panic disorder Visual impairment No data recorded No data recorded No data recorded Past Surgical History: Procedure Laterality Date Cardiac Invasive N/A 06/26/2024 Performed by Harinder Estrella MD at [facility] CARDIAC CATH LABS CHOLECYSTECTOMY COLONOSCOPY 2021 ENDOBRONCHIAL ULTRASOUND BRONCHOSCOPY N/A 11/22/2023 Performed by Libby Finley MD at [facility] Right heart cath N/A 06/26/2024 Performed by Harinder Estrella MD at [facility] CARDIAC CATH LABS TONSILLECTOMY TUBAL LIGATION [...] min Stress: No Stress Concern Present (12/20/2023) [place] of Occupational Health - Occupational Stress Questionnaire Feeling of Stress : Only a little Social Connections: Moderately Isolated (12/20/2023) Social Connection and Isolation Panel [NHANES] Frequency of Communication with Friends and Family: More than three times a week Frequency of Social Gatherings with Friends and Family: More than three times a week Attends [employer] Services: Never Active Member of Clubs or [...] 1. Dyspnea on exertion 2. Pulmonary hypertension ([facility]) Assessment: Chronic dyspnea on exertion Pulmonary hypertension; [...] next visit. She has upcoming visit with clinical documentation developer. Follow-up with Cardiology in a few months to reassess volume status. TODAYS ORDERS No orders of the defined types were placed in this encounter. FOLLOW UP No follow-ups on file. PCP: DIAZ DALTON MD Referring Physician: Diaz Dalton MD [address] [place] [address] [facility]17-[facility]24 Miscellaneous Notes Called patient to remind them to bring their most current copy of their medication list with them to their appt. Patient verbalizes understanding. documented in this encounter [facility] 07-17-2024 Telephone encounter Note Called patient to remind them to bring their most current copy of their medication list with them to their appt. Patient verbalizes understanding. [facility] 07-15-2024 History of Present illness Narrative Images from the original note were not included. HISTORY OF PRESENT ILLNESS: Carissa Santos is an 43 y.o. @ female. po [...] develop for requiring urgent evaluation. Barry Snowden APRN-PACKER INSPECTOR documented in this encounter [facility] 07-04-2024 History of Present illness Narrative Patient presents to [place] office for post cardiac catheterization site evaluation. [...] to that appointment. documented [facility] this [facility] 07-03-2024 Miscellaneous Notes Called patient to remind them to bring their most current copy of their medication list with them to their appt. Patient verbalizes understanding. documented [facility] this [facility] 07-03-2024 Telephone encounter Note Called patient to remind them to bring their most current copy of their medication list with them to their appt. Patient verbalizes understanding. [facility] 06-24-2024 History of Present illness Narrative Images from the original note were not included. HISTORY OF PRESENT ILLNESS: Carissa Santos is an 43 y.o. @ female. 1st [...] develop for requiring urgent evaluation. Barry Snowden APRN-PACKER INSPECTOR documented in this encounter [facility] 06-20-2024 Miscellaneous Notes Received order from Tracie at the [place] office. Patient scheduled for cath on 06/26/24 at 8:30 am at [facility] with T[facility]. Notified Tracie. No Covid test required at this time. documented in this encounter [facility] 06-20-2024 Telephone encounter Note Received order from Tracie at the [place] office. Patient scheduled for cath on 06/26/24 at 8:30 am at [facility] with TLM. Notified Tracie. No Covid test required at this time. [facility] 06-19-2024 Miscellaneous Notes Called patient to remind them to bring their most current copy of their medication list with them to their appt. Patient verbalizes understanding. documented in this encounter [facility] 06-19-2024 Telephone encounter Note Called patient to remind them to bring their most current copy of their medication list with them to their appt. Patient verbalizes understanding. [facility] 06-18-2024 Note [phone] [id number] Telephone encounter Note She should have [place] at [employer] in [place] [facility] Work Phone: 06-18-2024 Miscellaneous Notes She should have [place] at [employer] Review[facility]'s in [place] Patient called requesting pain meds. States that she is really hurting. documented in this encounter [facility] 06-18-2024 Telephone encounter Note Patient called requesting pain meds. States that she is really hurting. [facility] 06-17-2024 Note [facility] SURGERY Clinical Discharge Summary PERSON INFORMATION Name CARISSA SANTOS Age 43 Years 1980 Sex FEMALE Language [place] PCP DIAZ DALTON Marital Status Phone Med Service Ambulatory Surgery Acct# Arrival 06/17/2024 08:13:31 Visit Reason SURGERY - RIGHT CARPAL TUNNEL RELEASE Acuity LOS 171 20:16 Address: [address] [facility] [address] Comment: PROVIDER INFORMATION VITALS INFORMATION Vital Sign [...] every day. Durable Medical Equipment for Prescription (Next 1 Interactive CRYSTAL SENSOR 14D) APPLY 1 SENSOR TO BACK OF UPPER ARM. REMOVE AND REPLACE EVERY 14 DAYS. fluticasone/umeclidinium/vilanter ol (Trelegy Ellipta 200 mcg-62.5 mcg-25 mcg/inh inhalation [...] every day. Durable Medical Equipment for Prescription (PyreosE SENSOR 14D) APPLY 1 SENSOR TO BACK OF UPPER ARM. REMOVE AND REPLACE EVERY 14 DAYS. fluticasone/umeclidinium/vilanter ol (Trelegy Ellipta 200 mcg-62.5 mcg-25 mcg/inh inhalation [...] 15 mg/24 hr (more content not included)... [facility] 06-17-2024 Note Procedure: Decompres maria teresa of median nerve right wrist with release of carpal canal Pre Op Diagnosis: Carpal tunnel syndrome right Post Op Diagnosis: Carpal tunnel syndrome right Surgeon: Dr. Aldo Miller, Anesthesia: MAC local [...] on: 06/17/2024 10:38 EDT] Arianna Miller DO [facility] 06-14-2024 Telephone encounter Note Post op pain rx. PDMP reviewed [facility] 06-14-2024 Miscellaneous Notes Post op pain rx. PDMP reviewed documented in this encounter [facility] 06-13-2024 History of Present illness Narrative Images from the original note were not included. [facility] Progress Note Patient - Carissa Santos Age - 43 y.o. - 1980 ASSESSMENT [...] 42 Developmental delay PLAN Repeat ECHO from May. Not able to measure right pressures again. [...] prior if any new concerns or changes. WALI Ferrer presents for follow-up of her shortness of [...] -1.94 2.91 - 4.40 (cm) Data set: [place] Z-score normal range: +/-1.65 PFT Results Radiology [...] paratracheal lymph node. Dr. Lindsay Arrieta DO. [facility] Office: [phone] documented in this encounter [facility] 06-07-2024 Telephone encounter Note We have the clearance we are good to go [facility] [employer] Work Phone: 06-07-2024 Miscellaneous Notes We have the clearance we are good to go Prema at Dr Lopez office called and left vm regarding patient, she stated you needed an updated sx clearance for patient having wrist sx? She said there is addended one from 05/13/24 in chart. If you have questions or this is not what you need, please call her at [phone] option 3 goes straight to her desk. documented in this encounter [facility] 06-07-2024 Telephone encounter Note Script sent. [facility] 06-07-2024 Miscellaneous Notes Script sent. Prior auth for insulin went through, but was Prior auth'd for Semglee, if we can change the script and send in 1 [facility] to [facility] clm documented in this encounter [facility] 06-07-2024 Telephone encounter Note Prior auth for insulin went through, but was Prior auth'd for Semglee, if we can change the script and send in 1 month to [facility] clm [facility] 06-03-2024 Telephone encounter Note Prema at Dr Lopez office called and left vm regarding patient, she stated you needed an updated sx clearance for patient having wrist sx? She said there is addended one from 05/13/24 in chart. If you have questions or this is not what you need, please call her at [phone] option 3 goes straight to her desk. T [facility] 05-30-2024 History of Present illness Narrative Images from the original note were not included. HISTORY OF PRESENT ILLNESS: Carissa Santos is an 43 y.o. @ female. Chief complaint RT hand N/T RT Wrist: cleared by Dr Dalton 05/13/24, had echo 05/14 [facility] Right wrist pain and N/T x 8-9 months and progressively getting worse. She notes that she is now getting pain in her thumb. She notes N/T in Thumb, IF and MF that is nearly constant. She wakes at HS. She wears OT wrist brace. Describes pain as sharp. Trouble lifting and gripping, she admits dripping things. Admits weakness. Icing and elevating. Symptoms are worse when is using her phone and cooking. Prior treatment: EMG, ice, elevation, wrist immobilizer Pt is LT handed Pt is O2 3L 27/03 nasal canula MEDICATION: Current Outpatient Medications on File Prior to Visit Medication Sig Dispense Refill acyclovir (Zovirax) 400 MG tablet every 12 (twelve) hours. albuterol HFA 90 mcg/act inhaler INHALE 2 PUFFS BY MOUTH EVERY 4 HOURS NEEDED FOR WHEEZING 8.5 g 10 atorvastatin (Lipitor) 40 MG tablet Take 1 tablet (40 mg) by mouth Daily 30 tablet 11 Black Cohosh (Black Cohosh Hot Flash Relief) 40 MG capsule Take 1 each by mouth Daily 30 capsule 11 buPROPion XL (Wellbutrin XL) 300 MG 24 hr tablet TAKE 1 TABLET BY MOUTH DAILY 30 tablet 10 cholecalciferol (Vitamin D-3) 50 MCG (1999 UT) tablet Take 2 tablets (100 mcg) by mouth in the morning. 60 tablet 5 citalopram (CeleXA) 20 MG tablet Take 20 mg by mouth Daily Continuous Blood Gluc Sensor (FreeStyle Crystal 14 Day Sensor) [facility] apply 1 SENSOR to back OF UPPER ARM REMOVE AND REPLACE every 14 d... (REFER TO PRESCRIPTION NOTES). 2 each 11 cyclobenzaprine (Flexeril) 10 MG tablet Take 1 tablet (10 mg) by mouth 3 (three) times a day as needed for muscle spasms 60 tablet 2 dicyclomine (Bentyl) 20 MG tablet TAKE 1 (ONE) TABLET BY MOUTH FOUR TIMES DAILY, NEEDED 60 tablet 10 fluconazole (Diflucan) 150 MG tablet Take 150 mg by mouth 1 (one) time furosemide (Lasix) 40 MG tablet TAKE 1 TABLET BY MOUTH ONCE DAILY NEEDED insulin aspart FlexPen (NovoLOG) 100 UNIT/ML pen INJECT SUBCUTANEOUSLY THREE TIMES A DAY PER SLIDING SCALE *30 TO 40 UNITS DAILY* 15 mL 11 insulin glargine (Lantus SoloStar) 100 UNIT/ML pen Inject 30 Units under the skin Daily 5 each 5 insulin pen needle (Droplet Pen Coward) 32G x 4 mm [facility] USE ONE PEN NEEDLE TO INJECT MEDICATION SIX TIMES A DAY 200 each 10 lamoTRIgine (LaMICtal) 200 MG tablet Take 1 tablet (200 mg) by mouth at bedtime 90 tablet 3 lanolin (Lansinoh) cream Apply topically if needed for dry skin 7 g 0 lisinopril 2.5 MG tablet Take 2.5 mg by mouth in the morning. LORazepam (Ativan) 1 MG tablet TAKE 1 TABLET BY MOUTH 3 TIMES DAILY NEEDED FOR ANXIETY 90 tablet 0 metoprolol tartrate (Lopressor) 50 MG tablet take 1 tablet by mouth [address] AND 1 TABLET [address] nabumetone (Relafen) 500 MG tablet TAKE 1 TABLET BY MOUTH TWICE DAILY IF NEEDED 60 tablet 5 oxybutynin XL (Ditropan-XL) 15 MG 24 hr tablet Take 15 mg by mouth in the morning. pantoprazole (ProtoNix) 40 MG EC tablet Take 1 tablet by mouth once daily 30 tablet 5 pioglitazone (Actos) 45 MG tablet Take 45 mg by mouth in the morning. prazosin (Minipress) 2 MG capsule sertraline (Zoloft) 100 MG tablet Take 2 tablets (200 mg) by mouth Daily 60 tablet 11 SUMAtriptan (Imitrex) 25 MG tablet TAKE 1 TABLET BY MOUTH NEEDED 9 tablet 10 Tirzepatide (Mounjaro) 2.5 MG/0.5ML solution pen-injector INJECT 2.5MG SUBCUTANEOUSLY ONCE WEEKLY 2 mL 5 Tirzepatide (Mounjaro) 5 MG/0.5ML solution pen-injector Inject 5 mg under the skin 1 (one) time per week 2 mL 5 traZODone (Desyrel) 150 MG tablet 1 (one) time each day at the same time. Trelegy Ellipta 200-62.5-25 MCG/ACT aerosol powder Inhale 1 puff in the morning. [DISCONTINUED] insulin glargine (Lantus SoloStar) 100 UNIT/ML pen Inject 15 Units under the skin in the morning and 15 Units before bedtime. 5 each 5 [DISCONTINUED] insulin glargine (Lantus SoloStar) 100 UNIT/ML pen Inject 15 Units under the skin in the morning and 15 Units before bedtime. 5 each 5 No current facility-administered medications on file prior to visit. MEDICAL HISTORY: Past Medical History: Diagnosis Date Ankle fracture Anxiety and depression ([facility]) At low risk for fall Bilateral leg edema Chest pain, central Chronic left shoulder pain Chronic pain Chronic respiratory failure ([facility]) Dyslipidemia ([facility]) Epilepsy ([facility]) Childhood epilepsy JOHN (generalized anxiety disorder) ([facility]) Genital warts GERD (gastroesophageal reflux disease) History of being hospitalized pneumonia, diabetes, infection [10/29/21-11/05/21] History of medical problems mild mental retardation Hyperlipidemia ([facility]) Insomnia, persistent Irritable bowel syndrome with diarrhea MDD (major depressive disorder), recurrent episode, mild ([facility]) ([facility]) Migraine without aura and without status migrainosus, not intractable ([facility]) Morbid obesity with BMI of 40.0-44.9, adult ([facility]) Nocturnal hypoxemia Nonsmoker OAB (overactive bladder) Obesity JOSE M (obstructive sleep apnea) Postoperative urinary retention Primary osteoarthritis of left knee Seasonal allergies Type 2 diabetes mellitus with diabetic polyneuropathy, with long-term current use of insulin ([facility]) Type 2 diabetes mellitus with hyperglycemia, with long-term current use of insulin ([facility]) Type 2 diabetes mellitus without complication ([facility]) Vitamin D deficiency ALLERGIES: Allergies Allergen Reactions Sulfamethoxazole-Trimethoprim Hives and Itching VITALS: Visit Vitals Ht 5' 1 Wt 219 lb BMI 41.38 kg/m OB Status Having periods Smoking Status Never BSA 2.07 m Review of Systems General: Fatigue denies. Fever denies. Night sweats denies. ENT: Decreased hearing denies. Respiratory: Cough denies. Shortness of breath denies. Wearing O2 nasal cannula Cardiovascular: Chest pain denies. Cyanosis denies. Irregular heartbeat denies. Gastrointestinal: Comments denies incontinence of stool . Nausea denies. Hematology: Bleeding problems denies. Genitourinary: Comments denies dribbling. Incontinence denies. Musculoskeletal: CommentsSee [facility] for details. Skin: Rash denies. Neurologic: Dizziness denies. Headache denies. Examination General Examination: GENERAL EXAMINATION in no acute distress, well developed, well nourished . HEART: no jugular venous distention . LUNGS: regular unlabored, normal effort . Wearing nasal cannula, O2 3L 24/7 NEUROLOGIC: alert and oriented . PSYCH: oriented to person, place, time and situation . PHYSICAL EXAM: Ortho Exam RT WRIST: Patient is wearing a cock-up wrist splint. She is also on portable oxygen. Marked loss of sensation medial distribution Tender thenar region Trace thenar wasting Skin intact Positive tinel's, positive phalen's EMG report from July [facility] 20[facility] There was evidence right median neuropathy such as carpal tunnel and also evidence of ulnar neuropathy but not localized. There was also evidence of polyneuropathy. ASSESSMENT: ICD-10-CM 1. Right wrist pain M25.531 2. Carpal tunnel syndrome, right G56.01 PLAN: . I explained to the patient and her advocate that it is likely she has some permanent irreversible nerve damage. The merits of surgery would be to prevent further damage and hopefully reverse some of this but I do not think the hand and fingers will ever be completely normal. The patient is anxious to proceed with surgery. I anticipate a [facility] Deirdre Miller D.O. documented in this encounter [facility] 05-29-2024 History of Present illness Narrative Associated Problem(s): Right carpal tunnel syndrome Continued pain and follow with ortho. Associated Problem(s): Type 2 diabetes mellitus with microalbuminuria, with long-term current use of insulin ([facility]) BS elevated and A1C 12.9. Not taking lantus BID and resume. Continue mounjaro. Stick to ADA diet and limit carbs. Associated Problem(s): Acute pain of right knee Recent fall and continued pain. X-ray negative. Start PT and ice PRN. Continue relafen and flexeril. Images from the original note were not included. Subjective Patient ID: Carissa Santos is a 43 y.o. female who presents for Knee Pain (Fell 05/15/24). ER follow up from 05/16 for right knee pain. Fell walking down steps at [facility] 05/15 and hurt right knee. To ER and x-ray normal. C/o pain in front of knee and on outside of knee. No popping or clicking. Not unsteady or giving out. Pain to walk or stand. Very difficult to go up or down stairs. X-ray negative. Not using ice. Taking relafen and flexeril with mild relief. BS elevated around 200. Labs drawn yesterday showed A1C 12.9. Reports only taking lantus once a day because need refill. Mounjaro increased last month. Scheduled with ortho to discuss carpal tunnel surgery. Review of Systems Respiratory: Negative for cough, [...] Assessment/Plan Problem List Items Addressed This Visit Type 2 diabetes mellitus with microalbuminuria, with long-term current use of insulin ([facility]) BS elevated and A1C 12.9. Not taking lantus BID and resume. Continue mounjaro. Stick to ADA diet and limit carbs. Relevant Medications insulin glargine (Lantus SoloStar) 100 UNIT/ML pen Right carpal tunnel syndrome Continued pain and follow with ortho. Acute pain of right knee - Primary Recent fall and continued pain. X-ray negative. Start PT and ice PRN. Continue relafen and flexeril. documented in this encounter [facility] 05-28-2024 Miscellaneous Notes LM to call office to reschedule appt for today. documented in this encounter [facility] 05-28-2024 Telephone encounter Note LM to call office to reschedule appt for today. [facility] 05-27-2024 Miscellaneous Notes Left message for patient to remind them to bring their most current medication list with them to their appointment. documented in this encounter [facility] 05-27-2024 Telephone encounter Note Left message for patient to remind them to bring their most current medication list with them to their appointment. [facility] 05-16-2024 Telephone encounter Note [facility] 05-16-2024 Miscellaneous Notes documented in this encounter [facility] 05-13-2024 History of Present illness Narrative Associated Problem(s): Type 2 diabetes mellitus with hyperglycemia, with long-term current use of insulin (CMS/HCC) Reports BS improved and due for A1C. Increase mounjaro. Stick to ADA diet and limit carbs. Associated Problem(s): Spondylosis without myelopathy Increased pain and start flexeril. Associated Problem(s): Right carpal tunnel syndrome Able to proceed with upcoming surgery at low to 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 risk of complications. DM improved and no CAD or HTN. Cleared by pulmonology. Will have echo tomorrow. Recommend routine PAT. Associated Problem(s): Mild episode of recurrent major depressive disorder (HCC) (CMS/HCC) Mood controlled with medication and continue. Associated Problem(s): JOHN (generalized anxiety disorder) (CMS/HCC) Mood controlled with medication and continue. Use ativan PRN. Associated Problem(s): Edema Edema controlled with lasix and use PRN. Elevate legs PRN. Associated Problem(s): Chronic hypoxic respiratory failure (CMS/HCC) On home oxygen and follow with pulmonology. Images from the original note were not included. Subjective Patient ID: Carissa Santos is a 43 y.o. female who presents for Follow-up (3m) and Depression. Follow up DM, depression, anxiety, edema, IBS, and GERD. Reports BS improved and recently 64-200 but average around 150. Tries to eat well and stick to ADA diet. Denies signs of elevated BS such as polyuria, polyphagia or polydipsia. Due for A1C. Depression controlled with medication. Not as down or sad and feels happier. Anxiety stable. Not as stressed out or overwhelmed. Not as nervous or worry as much. Not as galicia or irritable. Edema controlled with medication. Mild swelling at end of day and if on feet a lot. Edema improved in am and with elevation. Seen by pulmonology and now with home oxygen. Breathing stable. Still waiting for carpal tunnel surgery. Continues to have pain in wrist and difficulty using hands. Anesthesia wants echo and will have performed tomorrow. DepressionPatient is not experiencing: palpitations and shortness of breath. Review of Systems Respiratory: Negative for cough, shortness of breath and wheezing. Cardiovascular: Negative for chest pain and palpitations. Gastrointestinal: Negative for abdominal pain, diarrhea, nausea and vomiting. Genitourinary: Negative for dysuria. Psychiatric/Behavioral: Positive for depression. Objective Physical Exam Constitutional: General: She is [...] Assessment/Plan Problem List Items Addressed This Visit JOHN (generalized anxiety disorder) ([facility]) Mood controlled with medication and continue. Use ativan PRN. Edema Edema controlled with lasix and use PRN. Elevate legs PRN. Mild episode of recurrent major depressive disorder (HCC) ([facility]) Mood controlled with medication and continue. Spondylosis without myelopathy Increased pain and start flexeril. Relevant Medications cyclobenzaprine (Flexeril) 10 MG tablet Right carpal tunnel syndrome Able to proceed with upcoming surgery at low to 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 risk of complications. DM improved and no CAD or HTN. Cleared by pulmonology. Will have echo tomorrow. Recommend routine PAT. Type 2 diabetes mellitus with hyperglycemia, with long-term current use of insulin ([facility]) - Primary Reports BS improved and due for A1C. Increase mounjaro. Stick to ADA diet and limit carbs. Relevant Medications Tirzepatide (Mounjaro) 5 MG/0.5ML solution pen-injector Other Relevant Orders Hemoglobin A1c Chronic hypoxic respiratory failure ([facility]) On home oxygen and follow with pulmonology. documented in this encounter [facility] 05-07-2024 Miscellaneous Notes Oxygen order placed and faxed to [facility] with supportive documentation. documented in this encounter [facility] 05-07-2024 Telephone encounter Note Oxygen order placed and faxed to [facility] with supportive documentation. [facility] 04-24-2024 Telephone encounter Note LM for patient to call our office back. [facility] 04-24-2024 History of Present illness Narrative Reason for Appointment: Patient ID: Carissa Santos is a 43 y.o. female who presents for encounter to discuss test results Patient presents today for Follow up appointment to discuss results. MEDICATIONS Current Outpatient Medications Medication Instructions acyclovir (Zovirax) 400 MG tablet Every 12 hours albuterol HFA 90 mcg/act inhaler 2 puffs, Inhalation, Every 4 hours PRN atorvastatin (LIPITOR) 40 mg, Oral, Daily Black Cohosh (Black Cohosh Hot Flash Relief) 40 MG capsule 1 each, Oral, Daily buPROPion XL (WELLBUTRIN XL) 300 mg, Oral, Daily cholecalciferol (VITAMIN D-3) 100 mcg, Oral, Daily citalopram (CELEXA) 20 mg, Oral, Daily Continuous Blood Gluc Sensor (FreeStyle Crystal 14 Day Sensor) misc apply 1 SENSOR to back OF UPPER ARM REMOVE AND REPLACE every 14 d... (REFER TO PRESCRIPTION NOTES). dicyclomine (Bentyl) 20 MG tablet TAKE 1 (ONE) TABLET BY MOUTH FOUR TIMES DAILY, NEEDED fluconazole (DIFLUCAN) 150 mg, Oral, Once furosemide (Lasix) 40 MG tablet TAKE 1 TABLET BY MOUTH ONCE DAILY NEEDED insulin aspart FlexPen (NovoLOG) 100 UNIT/ML pen INJECT SUBCUTANEOUSLY THREE TIMES A DAY PER SLIDING SCALE *30 TO 40 UNITS DAILY* insulin pen needle (Droplet Pen Coward) 32G x 4 mm [facility] USE ONE PEN NEEDLE TO INJECT MEDICATION SIX TIMES A DAY lamoTRIgine (LAMICTAL) 200 mg, Oral, Nightly lanolin (Lansinoh) cream Topical, As needed Lantus SoloStar 15 Units, Subcutaneous, 2 times daily lisinopril 2.5 mg, Oral, Daily RT LORazepam (ATIVAN) 1 mg, Oral, 3 times daily PRN metoprolol tartrate (Lopressor) 50 MG tablet take 1 tablet by mouth [address] AND 1 TABLET [address] Mounjaro 2.5 mg, Subcutaneous, Weekly nabumetone (RELAFEN) 500 mg, Oral, 2 times daily PRN ondansetron ODT (ZOFRAN-ODT) 4 mg, Oral, Every 6 hours PRN oxybutynin XL (DITROPAN-XL) 15 mg, Oral, Daily pantoprazole (ProtoNix) 40 MG EC tablet Take 1 tablet by mouth once daily pioglitazone (ACTOS) 45 mg, Oral, Daily prazosin (Minipress) 2 MG capsule sertraline (ZOLOFT) 200 mg, Oral, Daily SUMAtriptan (IMITREX) 25 mg, Oral, As needed traZODone (Desyrel) 150 MG tablet Every 24 hours Trelegy Ellipta 200-62.5-25 MCG/ACT aerosol powder 1 puff, Inhalation, Daily RT ALLERGIES Allergies Allergen Reactions Sulfamethoxazole-Trimethoprim Hives and Itching PROBLEMS Active Ambulatory Problems Diagnosis Date Noted Allergic rhinitis due to allergen 10/01/2009 JOHN (generalized anxiety disorder) ([facility]) 10/01/2009 Carpal tunnel syndrome of left wrist 04/06/2023 Contracture, unspecified ankle 04/06/2023 Edema 04/06/2023 Equinus deformity of left foot 04/06/2023 Gastroesophageal reflux disease 04/06/2023 Genital warts 04/06/2023 Hot flashes due to menopause 04/06/2023 Type 2 diabetes mellitus with microalbuminuria, with long-term current use of insulin ([facility]) 04/06/2023 Internal derangement of left shoulder 04/06/2023 Irritable bowel syndrome with diarrhea 04/06/2023 Mild developmental delay 09/29/2021 Migraine without aura and without status migrainosus, not intractable ([facility]) 04/06/2023 Mild episode of recurrent major depressive disorder (HCC) ([facility]) 04/06/2023 Morbid obesity ([facility]) 11/21/2022 Type 2 diabetes mellitus with polyneuropathy ([facility]) 06/10/2021 Obstructive sleep apnea syndrome 09/30/2009 Osteoarthritis of knee 04/06/2023 Overactive bladder 04/06/2023 Panic disorder without agoraphobia ([facility]) 11/12/2009 Dyslipidemia ([facility]) 04/22/2010 Spondylosis without myelopathy 08/10/2010 Cavitary lesion of lung 08/10/2023 Hypoxia 01/04/2024 Obesity hypoventilation syndrome ([facility]) 01/04/2024 Elevated blood-pressure reading without diagnosis of hypertension 01/04/2024 Right carpal tunnel syndrome 01/04/2024 Type 2 diabetes mellitus with hyperglycemia, with long-term current use of insulin ([facility]) 02/12/2024 Chronic hypoxic respiratory failure ([facility]) 02/19/2024 Moderate persistent asthma without complication ([facility]) 02/19/2024 Resolved Ambulatory Problems Diagnosis Date Noted Acute kidney injury (DREW) with acute tubular necrosis (ATN) ([facility]) 09/30/2021 Acute pain of left shoulder 04/06/2023 Shoulder joint pain 04/06/2021 Convulsions in the 09/30/2009 Cubital tunnel syndrome on left 11/04/2022 Fecal incontinence 06/22/2016 High anion gap metabolic acidosis 09/30/2021 Hyperglycemia 03/01/2019 Mild intellectual disability ([facility]) 09/30/2009 Other chronic pain 04/06/2023 Pneumonia due to infectious organism 09/29/2021 Poorly controlled diabetes mellitus ([facility]) 08/10/2015 Normal gynecologic examination 06/09/2015 Missed period 04/06/2023 DKA, type 1, not at goal ([facility]) 09/27/2021 Type 2 diabetes mellitus ([facility]) 09/30/2009 Other chest pain 08/10/2023 Past Medical History: Diagnosis Date Ankle fracture Anxiety and depression ([facility]) At low risk for fall Bilateral leg edema Chest pain, central Chronic left shoulder pain Chronic pain Chronic respiratory failure ([facility]) Epilepsy ([facility]) GERD (gastroesophageal reflux disease) History of being hospitalized History of medical problems Hyperlipidemia ([facility]) Insomnia, persistent MDD (major depressive disorder), recurrent episode, mild (HCC) ([facility]) Morbid obesity with BMI of 40.0-44.9, adult ([facility]) Nocturnal hypoxemia Nonsmoker OAB (overactive bladder) Obesity JOSE M (obstructive sleep apnea) Postoperative urinary retention Primary osteoarthritis of left knee Seasonal allergies Type 2 diabetes mellitus with diabetic polyneuropathy, with long-term current use of insulin ([facility]) Type 2 diabetes mellitus without complication ([facility]) Vitamin D deficiency HISTORY PAST MEDICAL HISTORY SOCIAL HISTORY Past Medical History: Diagnosis Date Ankle fracture Anxiety and depression ([facility]) At low risk for fall Bilateral leg edema Chest pain, central Chronic left shoulder pain Chronic pain Chronic respiratory failure ([facility]) Dyslipidemia ([facility]) Epilepsy ([facility]) Childhood epilepsy JOHN (generalized anxiety disorder) ([facility]) Genital warts GERD (gastroesophageal reflux disease) History of being hospitalized pneumonia, diabetes, infection [10/29/21-11/05/21] History of medical problems mild mental retardation Hyperlipidemia ([facility]) Insomnia, persistent Irritable bowel syndrome with diarrhea MDD (major depressive disorder), recurrent episode, mild (HCC) ([facility]) Migraine without aura and without status migrainosus, not intractable ([facility]) Morbid obesity with BMI of 40.0-44.9, adult ([facility]) Nocturnal hypoxemia Nonsmoker OAB (overactive bladder) Obesity JOSE M (obstructive sleep apnea) Postoperative urinary retention Primary osteoarthritis of left knee Seasonal allergies Type 2 diabetes mellitus with diabetic polyneuropathy, with long-term current use of insulin ([facility]) Type 2 diabetes mellitus with hyperglycemia, with long-term current use of insulin ([facility]) Type 2 diabetes mellitus without complication ([facility]) Vitamin D deficiency Social History [...] 12/29/2017 Diagnostic laparoscopy LAPAROTOMY OVARIAN CYSTECTOMY 03/31/2023 [place] ARTHROCENTESIS ASPIR&/INJ MAJOR JT/BURSA W/O US Right Arthrocentesis of the right knee joint REQUEST FOR SCREENING COLONOSCOPY 04/01/2019 Colonoscopy, screening SALPINGECTOMY Bilateral 03/31/2023 FERREIRA WART REMOVAL 08/14/2015 genital wart removal TONSILLECTOMY REVIEW OF SYSTEMS Review of Systems: Review of Systems Constitutional: Negative. HENT: Negative. Eyes: Negative. Respiratory: Negative. Cardiovascular: Negative. Gastrointestinal: Negative. Genitourinary: Negative. Musculoskeletal: Negative. Skin: Negative. Neurological: Negative. All other systems reviewed and [...] nursing note reviewed. Exam conducted with a director of human resources present. Vitals: Estimated body mass index is 42.7 kg/m as calculated from the following: Height as of 04/04/24: 5' 1 . Weight as of this encounter: 226 lb. BP: 130/84 No LMP recorded. ASSESSMENT & PLAN ICD-10-CM 1. Encounter to discuss test results Z71.2 Pt presents to discuss ultrasound and labs. Pt is still having pain- discussed results. Pt is having referred pain from musculoskeletal back pain. Pt advised to see PCP- for possible pain injection. Pt voiced understanding. Documented by Dayanara Wheatley LPN on behalf of: Feliz Benz DO documented in this encounter [facility] 04-24-2024 Telephone encounter Note Once she is cleared we can reschedule her surgery, please let patient know thanks [facility] Work Phone: 04-24-2024 Telephone encounter Note Patient called back asking if she should reschedule surgery at this time or wait until after cardiac clearance, please advise. Call back # [phone] [facility] 04-24-2024 Telephone encounter Note Notified [facility] and cx sx [facility] 04-22-2024 Telephone encounter Note Patient would like to cancel her surgery. Appointment for cardiac namrata isn't till May 14. [facility] 04-18-2024 Telephone encounter Note LM with Dr Dalton office that patient needs Echo and clearance from PCP Also spoke with patient to contact PCP to follow up for clearance [facility] 04-18-2024 Telephone encounter Note Jacqueline from [facility] pre surgery called regarding patient carissa santos 1980. she said looked at her Pat and said she needs to have an echo, that she needs evaluation for pulmonary hypertension. Please advise [facility] 04-15-2024 Miscellaneous Notes Images from the original note were not included. Last OV 07/13/2023 Message to scheduling for appt BMP 12/23/2023 documented in this encounter [facility] 04-15-2024 Telephone encounter Note Images from the original note were not included. Last OV 07/13/2023 Message to scheduling for appt BMP 12/23/2023 [facility] 04-10-2024 Miscellaneous Notes 8/6 Order received Scheduled PSG at [facility] on 08/06/24 Scheduled PAP at [facility] on 11/20/24 Confirmation mailed Comp Order and 04/09/24 Benito Germain Epic Notes With TCO2 Start without oxygen, uses 2-3L/min with exertion and sleep If patient has hypoxemia awake prior to sleep please add oxygen, add per protocol in sleep otherwise documented in this encounter [facility] 04-10-2024 Telephone encounter Note 04/09 Order received Scheduled PSG at [facility] on 08/06/24 Scheduled PAP at [facility] on 11/20/24 Confirmation mailed Comp Order and 04/09/24 Benito Germain Epic Notes With TCO2 Start without oxygen, uses 2-3L/min with exertion and sleep If patient has hypoxemia awake prior to sleep please add oxygen, add per protocol in sleep [facility] History of Present illness Narrative CHIEF COMPLAINT: Cairssa Santos is a 43 y.o. female who presents to [facility] in follow-up for suspected sleep apnea The patient was accompanied by care worker. She sees Dr. Arrieta in pulmonary clinic INTERVAL EVENTS Ms. Santos reports she is snoring and waking her self snoring some times. She can wake feeling a gasping or short of breath sensation. She does nap sometimes but not every day. She does not drive at all. Denies sleepiness as a passenger in car. Her has a CPAP machine. He has not told her about any apneas or concerns about her breathing in sleep. Dr. Arrieta has prescribed her oxygen for exertion and for sleep. She reports using 3 L/min at night and 2-3 L/min during the day with exertion. She denies using oxygen at rest. Sleep Habits: Bedtime: about 9-9:30 to 10 pm Wake Time: 7:30-8:00 am Sleep onset: 1 hr,will just lay there if she cannot sleep Frequency of nocturnal awakening(s): sometimes will get up for the bathroom and go back to sleep Naps: 1 hr, some days, not daily Caffeine use [coffee AM ] Other substance use [ denies] Lorazepam - not taking any more, not needed, at least in a few months . Her PCP had prescribed this for sleep in the past [place] Sleepiness Scale: Sitting and Reading: Never Watching TV: Slight Chance Sitting inactive in a public place (theater, meeting): Never As a passenger in a car for an hour without a break: Never Lying down in the afternoon to rest: (!) Moderate Chance Sitting and talking to someone: Never Sitting quietly after lunch (without alcohol): Never In a car, while stopped for a few minutes in traffic: Never Total: 3 PAST MEDICAL HISTORY: Patient Active Problem List Diagnosis Hyperglycemia Chest pain, unspecified Type 2 diabetes mellitus with hyperglycemia, with long-term current use of insulin ([facility]) Mild developmental delay Obstructive sleep apnea syndrome Severe obesity (BMI >= 40) ([facility]) Hyperlipidemia associated with type 2 diabetes mellitus ([facility]) Abnormal ECG during exercise stress test Mediastinal lymphadenopathy Acute cystitis without hematuria Pulmonary nodule Dyspnea on exertion Moderate persistent asthma without complication Chronic hypoxic respiratory failure ([facility]) Past Medical History: Diagnosis Date Anxiety Deep vein thrombosis ([facility]) Dental disease no teeth Depression Diabetes mellitus type I ([facility]) Elevated cholesterol GERD (gastroesophageal reflux disease) Hyperlipidemia Hypertension Lymphadenopathy 2023 MR (mental retardation) Obesity Panic disorder Visual impairment Past Surgical History: Procedure Laterality Date CHOLECYSTECTOMY COLONOSCOPY 2021 ENDOBRONCHIAL ULTRASOUND BRONCHOSCOPY N/A 11/22/2023 Performed by Libby Finley MD at [facility] TONSILLECTOMY TUBAL LIGATION Bilateral 2018 ALLERGIES: Allergies Allergen Reactions Sulfamethoxazole-Trimethoprim Hives, Itching and Other (See Comments) MEDICATIONS: Current Outpatient Medications on File Prior to Visit Medication Sig Dispense Refill albuterol (PROVENTIL HFA;VENTOLIN [...] Units total) by mouth in the morning. eikursrwtgo-seqstaaaj-qzjondyc (TRELEGY ELLIPTA) 200-62.5-25 mcg blister with device Inhale 1 puff in the morning. 60 each 11 insulin aspart U-100 (NovoLOG) 100 unit/mL injection Inject under the skin 3 (three) times a day before meals. insulin glargine (LANTUS) 100 unit/mL injection Inject 0.15 mL (15 Units total) under the skin in the morning. lamoTRIgine (LaMICtal) 200 mg tablet Take 1 tablet (200 mg total) by mouth in the morning. Indications: bipolar depression. lisinopriL (PRINIVIL,ZESTRIL) 2.5 mg tablet Take 1 tablet (2.5 mg total) by mouth in the morning. 90 tablet 3 MOUNJARO 2.5 mg/0.5 mL pen injector inject 2 & 1/2 milligrams subcutaneously ONCE EVERY WEEK pantoprazole (PROTONIX) 40 mg EC tablet Take 1 tablet (40 mg total) by mouth every morning before breakfast. pioglitazone (ACTOS) 45 mg tablet Take 1 tablet (45 mg total) by mouth in the morning. prazosin (MINIPRESS) 2 mg capsule Take 1 capsule (2 mg total) by mouth nightly. sertraline (ZOLOFT) 100 mg tablet Take 1 tablet (100 mg total) by mouth in the morning. TRULICITY 4.5 mg/0.5 mL pen injector INJECT 4.5 MG SUBCUTANEOUSLY ONCE EVERY WEEK Current Facility-Administered Medications on File Prior to Visit Medication Dose Route Frequency Provider Last Rate Last Admin sodium chloride 0.9 % flush 10 mL 10 mL intravenous PRN Maxx Pantoja MD 10 mL at 10/20/23 0900 PHYSICAL EXAMINATION: BP 134/84 Pulse 90 Ht 154.9 cm (5' 0.98 ) Wt 104.6 kg (230 lb 8 oz) SpO2 100% Comment: Arrived on 2Lnc of O2 BMI 43.58 kg/m General appearance: no acute distress. Eyes: no conjunctival erythema, no scleral icterus. Ears, Nose, Mouth and Throat: external ears unremarkable, external nose and mouth unremarkable, mallampati class III, edentulous Neck: trachea position midline. Respiratory: normal work of breathing, oxygen canula in place Skin: No rash/ lesions/ulcers/ induration/subcutaneous nodules in visible regions. Neurologic: face symmetric at rest and activation, no dysarthria, tongue protrudes midline and palate elevates symmetrically, no tremor or abnormal movements Mental Status: Cognitive: Alert and oriented x 3. Insight good. Judgment good. DATA: Lab Results Component Value Date WBC 4.0 12/23/2023 HGB 11.5 (L) 12/23/2023 HCT 33.8 (L) 12/23/2023 MCV 86 12/23/2023 PLT 183 12/23/2023 Chemistry Component Value Date/Time K 4.3 12/23/2023 0526 CL 104 12/23/2023 0526 CO2 25 12/23/2023 0526 BUN 22 12/23/2023 0526 CREATININE 0.89 12/23/2023 0526 GLU 309 (H) 12/23/2023 1123 Component Value Date/Time CALCIUM 8.2 (L) 12/23/2023 0526 ALKPHOS 91 12/20/2023 1709 AST 17 12/20/2023 1709 AST 12 06/07/2022 0917 ALT 23 12/20/2023 1709 ALT 18 06/07/2022 0917 Lab Results Component Value Date TSH 1.11 10/09/2022 Echo complete W/ contrast Result Date: 06/05/2023 Left Ventricle: Systolic function is normal with an ejection fraction of 65-70%. The quantitative EF by 2D Brush biplane is 68%. No significant valvular disease noted. Sleep Study Results: None IMPRESSION/RECOMMENDATIONS: 1. JOSE M (obstructive sleep apnea), suspected 2. Chronic hypoxic respiratory failure ([facility]) 3. Severe obesity (BMI >= 40) ([facility]) Carissa Santos is a 43 y.o. female with medical problems including as above, presenting in follow up for suspected sleep apnea. She is snoring and snorting and gasping awake. She currently is using supplemental oxygen 3 L/ minute overnight and 2-3 L/min with exertion. Discussed with the patient that I will order a baseline polysomnogram to be started without supplemental oxygen however if she is hypoxic awake at the beginning of the study I would like the supplemental oxygen added back, otherwise oxygen will be added back as per protocol in sleep. Add TCO2 monitoring given BMI 43, at risk for obesity hypoventilation. CPAP titration with TCO2 ordered to be completed if she meets criteria on the PSG CPAP compliance was discussed, I will see her back in 31-90 days from receiving a machine EDUCATION: Pathophysiology of JOSE M was explained. Health risks associated with untreated JOSE M were discussed (cardiopulmonary, cerebrovascular, and anesthesia/sedative-related). JOSE M treatment options were discussed. CPAP is the most predictably effective treatment. If indicated and prescribed, CPAP must be used every night, all night for full benefits. It may take several weeks until fully accustomed to using the treatment, and before benefits (improved sleep quality and daytime altertness) are noticeable. Potential problems with CPAP were reviewed. Interim measures to reduce obstructive sleep apnea severity were recommended (avoidance of the supine position and elevation of the upper body and during sleep). Weight loss recommended. Discussed that JOSE M can worsen with weight gain and improve and some cases resolve with weight loss, as well as weight loss improving cardio-metabolic outcomes. Above plan as discussed with the patient who acknowledged understanding and agreement. SMITHA GERMAIN MD [facility] [facility] [address] [id number] [id number] documented in this encounter [facility] 04-09-2024 Instructions Smitha Germain MD - 04/09/2024 11:00 AM EDT Thank you for visiting [facility] office. The process of completing a sleep study has many steps. We have detailed these steps below to help keep you informed of what to expect. The scheduling, prior authorization, and registration process: Please call option #1 to schedule your sleep study. Your sleep medicine specialist places an electronic order which is sent to [facility] sleep lab. This order is then reviewed by the lab staff and a request for approval is sent to your insurance company. If you would like to know the estimated cost of your study, you can call [phone] for general pricing information (note that you will need the following procedure codes allow them to estimate the cost: Polysomnogram (PSG), in lab diagnostic study without CPAP = 44797 PAP titration, in lab with CPAP for treatment = [phone] Every study request is reviewed in our sleep prior authorization department. Some sleep studies require prior authorization and some do not (only require that the provider document the need for the study). Some sleep study orders may need to be changed based on insurance coverage. (ie in lab to home study). Please confirm with your insurance that all [facility] sleep labs are in network with your insurance. If you change your insurance after the sleep study is ordered, please call the sleep lab back to update our scheduling staff ( option #1). You should receive a call prior to your sleep study to pre-register. They will be able to provide sleep study cost estimates as well. The sleep lab will also give detailed instructions on where to check in for the study. Preparing for your sleep study: Avoid napping and afternoon caffeine use prior to the sleep study. Very specific instructions on what to bring will be provided by the sleep lab (pajamas, toiletries, medications, etc). Prior to the sleep study you will be asked to choose a medical equipment supplier (DME).The DME will be providing the pap machine if ordered by the provider. What happens after my sleep study? Within 24-48 hours the data from your sleep study is sent to a composite technician to be reviewed and scored. The report from the composite technician is then sent to the sleep medicine physician and within 7-10 days the study will be formally interpreted. Once the study is completed, there will be contact from our office (through [employer], phone, or a letter) about next steps (ie treatment for sleep apnea, office appointment, cpap machine orders). If a cpap machine has been ordered and you do not hear from the equipment company within 30 days of your study, please call our office [phone]. FYI: Some insurance companies have strict guidelines regarding the timeline for this process. If sleep studies are not completed within 6-12 months of the office visit insurance may require another office visit. Also if cpap set up is not done within a year of the initial sleep study insurance may require another sleep study. Thank you, [facility] Department REQUIREMENTS FOR PAP (CPAP/BPAP/ASV) COMPLIANCE All insurances vary but these are the most common compliance requirements. Please check with your insurer/DME company for your specific compliance requirements: 1) Minimum PAP use is defined as follows (all apply): A. At least 4 hours per day/night (24 hour period) B. At least 21 nights (=70% usage) during a 30 day period C. Minimum usage must be demonstrated within the first 90 days (starts the day you obtain your PAP machine from your supplier) 2) You must have a follow up visit at the Sleep Clinic: A. Follow up visit appointment must be at least 31 and no more than 90 days after receiving your PAP machine. B. It is your responsibility to reschedule this appointment if there is a delay in receiving your PAP machine that would not allow enough time to demonstrate sufficient use. If the above requirements are not met: 1) You may have to re-qualify to keep your PAP machine: a repeat sleep study may be required. 2) You may have to return your PAP machine to the supplier or receive a bill from the supplier. 3) These consequences will be determined by your insurance company. documented in this encounter [facility] 03-21-2024 History of Present illness Narrative Patient called nurse line and requested Trelegy script to be sent to [facility]. Script sent. documented in this encounter [facility] 03-18-2024 History of Present illness Narrative [facility] Pulmonary And Sleep Progress Note Patient - Carissa Santos Age - 43 y.o. - 1980 ASSESSMENT Chronic hypoxic respiratory failure -2L with exertion and 3L with sleep Right upper lobe pulmonary nodule 1.5cm stable x 2 years. -negative on PET. Mild enlarged station 4R LN with SUV 2.8 Isolated severely reduced DLCO on PFT -no evidence of ILD on prior CT imaging Suspected obstructive lung disease with symptomatic improvement on Trelegy Obesity Developmental delay Concern for possible JOSE M PLAN Rx for trelegy to pharmacy given symptomatic benefit from patient. ECHO with bubble study requested to rule out shunt. Impaired DLCO may have some mild contribution from mild anemia as well. Underlying PH not excluded - ECHO in June 2023 unable to visualize valves or calculate RVSP. Will reach out to [facility] to determine what portable tanks she has, if she is eligible for POC or smaller tanks. Conserver device testing Patient very anxious to proceed with carpal tunnel. She is moderate risk but not prohibitive. Has upcoming appt with sleep medicine RTC as scheduled in May following CT chest. SUBJECTIVE Mrs. Santos was seen for follow up after repeat home oxygen testing demonstrated ongoing need for ambulatory oxygen therapy. Visit was to be video session but patient was unable to log on - conversion to telephone visit. She is developmentally delayed and does not read. She lives with her who listened along with the visit. Her primary focus is to be cleared for carpal tunnel surgery. She feels her breathing with exertion is improved with Trelegy 100 samples. She has been taking for about 2 weeks. She is using 2L continuous flow with ambulation, 3L with sleep. She states she has large O2 tanks that are portable but too heavy. Her insurance would not cover a POC and she would like smaller tanks. She denies any new CP, cough or wheeze. PFT data with isloated severe impaired DLCO. Repeat ECHO with bubble study was ordered but not yet done or scheduled. She had PET/CT which did not reveal uptake in her nodules in question. Repeat CT scan of the chest is due in April. VITALS There were no vitals taken for this visit. Exam None Meds Medications Reviewed. Dr. Lindsay Arrieta DO. [facility] Office: [phone] documented in this encounter [facility] 03-12-2024 Miscellaneous Notes Per patient arriving to [facility] one hour past appt time and Dr GARLAND already gone for the day office canceled pt arrival and marked patient as a NO SHOW per PN. documented in this encounter [facility] 03-12-2024 Telephone encounter Note Per patient arriving to [facility] one hour past appt time and Dr GARLAND already gone for the day office canceled pt arrival and marked patient as a NO SHOW per PN. [facility] 03-12-2024 Miscellaneous Notes Patient signed on at 258 pm for 2 pm mychart visit. Spoke with patient. Will need to reschedule appt. Is there a day she can be added on? Can do video visit on Monday at 3pm please. Patient agreeable and scheduled documented in this encounter [facility] 03-12-2024 Telephone encounter Note Patient signed on at 258 pm for 2 pm mychart visit. Spoke with patient. Will need to reschedule appt. Is there a day she can be added on? [facility] Work Phone: 03-12-2024 Telephone encounter Note Can do video visit on Monday at 3pm please. [facility] 03-12-2024 Telephone encounter Note Patient agreeable and scheduled [facility] 02-26-2024 Miscellaneous Notes Gosia called office to confirm patient appt date and times. Office confirmed and gave Gosia central scheduling number for sleep study purposes. documented in this encounter [facility] 02-26-2024 Telephone encounter Note Gosia called office to confirm patient appt date and times. Office confirmed and gave Gosia central scheduling number for sleep study purposes. [facility] 02-08-2024 History of Present illness Narrative [facility] Pulmonary And Sleep Progress Note Patient - Carissa Santos Age - 43 y.o. - 1980 ASSESSMENT 1. Dyspnea on exertion suspect significant component of physical deconditioning 2. History of hypoxia 3. Right upper lobe pulmonary nodule, stable greater than 2 years 4. Mediastinal adenopathy with mild uptake on PET-CT. Status post bronchoscopy with endobronchial ultrasound 11/22/2023. Negative for neoplasm 5. Adiposity with BMI 44 6. Developmental delay PLAN Hospital records and previous pulmonary records reviewed Patient to schedule pulmonary function testing Will repeat home oxygen evaluation. Pending this data, will offer clearance for upcoming carpal tunnel surgery as requested by patient Patient warrants repeat CT of the chest with contrast for six-month follow-up after PET-CT in December to re-evaluate her mediastinal adenopathy. Further recommendations pending above testing All questions answered Return to clinic in 3 months or earlier if needed WALI Ferrer presents with her support person for follow up after recent hospitalization. She has developmental delay, obesity, diabetes. She was actually referred as a new patient given recent hospitalization but was already established in our office with Dr. Finley and last seen in November. She had originally been referred to us for her shortness of breath with exertion as well as abnormal chest imaging. She had PET-CT in November which revealed her right upper lobe pulmonary nodule which has been stable for more than 2 years showing stability but there was some prominence of a paratracheal lymph node with some metabolic uptake as well as an axillary lymph node. She underwent bronchoscopy with endobronchial ultrasound on 11/21. Biopsy was made of station 4R with normal lymphocytes and no evidence of neoplasm. Culture data was also negative and tissue culture. Patient has been noticing shortness of breath with exertion for quite some time. She denies any wheezing, coughing. Her shortness of breath is always with exertion. No environmental, temperature, illness changes in her shortness of breath. No previous diagnosis such as asthma or COPD. No previous lung function testing. She was recently hospitalized at [facility] in December. She just checked her oxygen level at home after walking and her oxygen level was 88% so she called EMS. Upon EMS arrival she was 90% and they said she was fine but when she got up and moved it dropped to 88 so they brought her into the ER. She was admitted and had normal chest x-ray, normal labs. She was discharged soon thereafter and was told that she did not qualify for oxygen. Oxygen evaluation in the chart by respiratory therapist does show that she did drop her oxygen saturation to 88% with ambulation. She does not have oxygen within the home. She states she still checks her oxygen levels with portable pulse ox and states that with doing laundry or basic movements within the home she will drop into the 80s. Her shortness of breath is recovered quickly within a couple of minutes of rest. No new lower extremity swelling, sensation of a wellness. Echocardiogram last year did not reveal impaired ejection fraction. RVSP was not able to be calculated. She has no previous sleep study testing. VITALS BP 139/87 Pulse 80 Ht 154.9 cm (5' 0.98 ) Wt 105.8 kg (233 lb 4.8 oz) SpO2 98% BMI 44.11 kg/m Exam General: Alert, oriented, no acute distress, nontoxic, well nourished HEENT: Moist mucosal membranes, no oral lesions or oral thrush, trachea midline, edentulous Chest: Clear to auscultation bilaterally without any crackles, wheezes, rhonchi. Normal AP diameter. CV: Regular rate regular rhythm Extremities: No edema, erythema, distal cyanosis, clubbing Integumentary: Warm and dry. No rash or lesion Neuro: No lateralizing deficits. No tremors Meds Medications Reviewed. Lab Results [facility] [address] [place] [address] Cytology Consultation Patient Name:CARISSA SANTOS:1980 (Age: 43)Gender:FTaken:11/22/2023eporte d:11/23/2023 17:47Physician(s):Libby Finley MD ([phone])Copy To: Rec. #:[id number]: #[id number] Final Cytologic Diagnosis 1. 4R node, endobronchial ultrasound-guided fine needle aspirate (8 smears, 1 ThinPrep): Lymphocytes are present consistent with lymph node. No malignant cells identified. 2. Right upper lobe lung bronchoalveolar lavage (1 ThinPrep, 2 H&E cell block): No malignant cells identified. PFT Results Radiology CXR 12/20/23 History:sob Difficulty breathing, shortness of breath Comparison: 06/04/2023 Findings: Single portable view of the chest. Stable cardia mediastinal silhouette. No focal opacity, effusion or pneumothorax. 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 Contrast evaluation of the face/brain due to [...] and/or tendinitis 5. Additional findings/limitations as above Dr. Lindsay Arrieta DO. [facility] Office: [phone] documented in this encounter [facility] 01-05-2024 Miscellaneous Notes 01/05/2024- this patient called and left a vm, I called back and left a vm. mary documented in this encounter [facility] 01-05-2024 Telephone encounter Note 01/05/2024- this patient called and left a vm, I called back and left a vm. mary [facility] 12-23-2023 Nurse Note AVS reviewed with the patient and signed. All questions answered and concerns addressed. Meds reviewed that need to be picked up from the pharmacy and administration times. The need to make a follow up appt within one week with PCP and go to scheduled pulmonology reviewed. All belongings returned. IV removed and tele D/C. Waiting for Patient's ride home. [facility] 12-23-2023 Nurse Note AVS reviewed with the patient and signed. All questions answered and concerns addressed. Meds reviewed that need to be picked up from the pharmacy and administration times. The need to make a follow up appt within one week with PCP and go to scheduled pulmonology reviewed. All belongings returned. IV removed and tele D/C. Waiting for Patient's ride home. documented in this encounter [facility] 12-23-2023 Plan of care note Problem: Safety Goal: Patient will be injury free during hospitalization Description: INTERVENTIONS: 1. Assess patient's risk for falls and implement fall prevention plan of care per policy 2. Provide and maintain a safe environment 3. Proper use of double Identifiers 4. Medication administration using the 5 rights 5. Hand hygiene 6. Specimens are labeled at the bedside 7. Instruct patient/ patient community 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 about use of safety devices 8. Include patient/ patient community 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 in decisions related to safety Outcome: Progressing Note: Evaluation of progress towards goal: Pt is free of injury, safe environment provided and maintained, medication administered as ordered, hand hygiene completed. [facility] 12-23-2023 Miscellaneous Notes Problem: Safety Goal: Patient will be injury free during hospitalization Description: INTERVENTIONS: 1. Assess patient's risk for falls and implement fall prevention plan of care per policy 2. Provide and maintain a safe environment 3. Proper use of double Identifiers 4. Medication administration using the 5 rights 5. Hand hygiene 6. Specimens are labeled at the bedside 7. Instruct patient/ patient community 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 about use of safety devices 8. Include patient/ patient community 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 in decisions related to safety Outcome: Progressing Note: Evaluation of progress towards goal: Pt is free of injury, safe environment provided and maintained, medication administered as ordered, hand hygiene completed. Problem: Pain Goal: Patient goal is pain score less than 4, able to rest, and participant in treatment plan as appropriate Description: INTERVENTIONS: 1. Encourage patient or legal community 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 to report early pain and ask for pain medicine when needed 2. Assess pain using appropriate pain scale and include the scale used when documenting 3. Administer analgesics based on type and severity of pain and evaluate response within appropriate time frame 4. Implement non-pharmacological measures as appropriate and evaluate response 5. Consider cultural and social influences on pain and pain management 6. Notify LIP if interventions ineffective or patient reports new pain 7. Monitor vital signs including pulse ox, end-tidal CO2 based on pain intervention 8. Reassess pain per policy 9. Teach patient or legal community 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 interventions for comforting Outcome: Progressing Note: Evaluation of progress towards goal: Pt rates pain 0, prn medication available. Problem: Safety Goal: Patient will be injury free during hospitalization Description: INTERVENTIONS: 1. Assess patient's risk for falls and implement fall prevention plan of care per policy 2. Provide and maintain a safe environment 3. Proper use of double Identifiers 4. Medication administration using the 5 rights 5. Hand hygiene 6. Specimens are labeled at the bedside 7. Instruct patient/ patient community 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 about use of safety devices 8. Include patient/ patient community 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 in decisions related to safety Outcome: Progressing Note: Evaluation of progress towards goal: Pt. Remains free from falls and injuries. Call light in reach, bed in lowest position. Problem: Infection Goal: Absence of infection during hospitalization Description: Interventions: 1. Assess and monitor for signs and symptoms of infection 2. Monitor lab/diagnostic results 3. Monitor all insertion sites i.e., indwelling lines, tubes and drains 4. Monitor endotracheal (as able) and nasal secretions for changes in amount and color 5. Administer medications as ordered 6. Instruct and encourage patient and family to use good hand hygiene technique 7. Identify and instruct patient/patient community 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 in use of appropriate isolation precautions for identified infection/symptoms 8. Provide and discuss with patient/patient community 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 on educational MDRO sheet 9. Encourage and monitor nutritional status daily and consult pharmacogeneticist if indicated 10. Implement neutropenic guidelines as needed 11. Review exposure to history of communicable disease and recent travel history on admission 12. Encourage annual influenza vaccine 13. Encourage pneumonia vaccine Outcome: Progressing Note: Evaluation of progress towards goal: Problem: Knowledge Deficit Goal: Patient/patient community 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 demonstrates understanding of disease process, treatment plan, medications, and discharge instructions Description: INTERVENTIONS 1. Complete learning assessment and assess knowledge base 2. Provide teaching at level of understanding 3. Provide teaching via preferred learning method(s) Outcome: Progressing Note: Evaluation of progress towards goal: Patient updated on POC along with medication. Patient voiced understanding. ' Problem: Discharge Planning Goal: Discharge to post-acute care, other facility, or home with appropriate resources Description: Patient's goal is: INTERVENTIONS 1. Conduct assessment to determine patient/family and health care team treatment goals, and need for post-acute services based on payer coverage, community resources, and patient preferences, and barriers to discharge 2. Coordinate with Social work, Care Navigation, and Utilization Review to arrange appropriate level of services according to patient's needs based on patient preference and payer coverage in collaboration with the physician and health care team 3. Address psychosocial, clinical, and financial barriers to discharge as identified in assessment in conjunction with the patient/family and health care team 4. Consult appropriate ancillary services (i.e.. PT/OT/ST, etc) as needed 5. Communicate with and update the patient/family, physician, and health care team regarding progress on the discharge plan 6. Identify discharge learning needs (meds, wound care, etc). 7. Arrange for needed discharge transportation as appropriate Outcome: Progressing Note: Evaluation of progress towards goal: Multidisciplinary teams working together with patient to achieve discharge goals. DISCHARGE PLANNING NOTE DTR Carissa Santos SOB (shortness of breath) [R06.02] Hyperglycemia [R73.9] Acute cystitis without hematuria [N30.00] Per Rosemary Zurita CNP request: OP consult to Pulmonology for the following: . Outpatient visit to Pulmonary to see if PFT warranted . Patient is newly on home oxygen . [facility]. - Stacey Smith RN 12/22/23 11:04 AM Images from the original note were not included. DISCHARGE PLANNING NOTE Follow-up Discharge Planning Progress Note Per RN during discharge transition rounds, barriers to discharge are: None Discharge Plan: DC to home with new oxygen referral with [facility] Await final arrangements and delivery of portable to room then pt can DC. RN and pt updated. Oxygen orders and face to face note attached in careport for [facility] to finalize oxygen referral and set up delivery. DOC Taylor, 12/22/2023, 10:[address] [facility] that the pt has an outstanding bill with them and will not make payment. Therefore they will not be able to arrange the oxygen. This was discussed with pt who confirmed this. She asked ad copy writer to try another DME. Staff updated on oxygen barrier. [facility] and also called: [phone] and spoke to Talisha who was able to confirm referral was received. It could take an hour to process. Sticky note updated for staff to call with update. ODC Taylor, 12/22/2023, 3:23 PM Care Navigation will continue to follow. Services Requested: Services Requested Discharge Disposition: Home with self care, Home Durable Medical Equipment (Will need home oxygen) Home Durable Medical Equipment Name: [facility] Home Durable Medical Equipment Home Durable Medical Equipment Does the patient need discharge transportation arranged?: No Patient choice offered: Yes List Provided: Patient declined Patient Declined: Other (must state reason) (Requested) Initial DC Assessment Completed: Yes DC Planning Complete Discharge Milestones: Yes Patient Goals: Patient/Caregiver Goals Patient/Caregiver Goals: Home with Outpatient Service Provider Goals: Goals Home with oxygen (pt-stated) Evaluation of progress towards goal: In progress: Home with oxygen tomorrow. DC to home with oxygen today. DOC Taylor, 12/22/2023, 10:51 AM Problem: Pain Goal: Patient goal is pain score less than 4, able to rest, and participant in treatment plan as appropriate Description: INTERVENTIONS: 1. Encourage patient or legal community 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 to report early pain and ask for pain medicine when needed 2. Assess pain using appropriate pain scale and include the scale used when documenting 3. Administer analgesics based on type and severity of pain and evaluate response within appropriate time frame 4. Implement non-pharmacological measures as appropriate and evaluate response 5. Consider cultural and social influences on pain and pain management 6. Notify LIP if interventions ineffective or patient reports new pain 7. Monitor vital signs including pulse ox, end-tidal CO2 based on pain intervention 8. Reassess pain per policy 9. Teach patient or legal community 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 interventions for comforting Outcome: Progressing Note: Evaluation of progress towards goal: monitor and treat ain as ordered Problem: Safety Goal: Patient will be injury free during hospitalization Description: INTERVENTIONS: 1. Assess patient's risk for falls and implement fall prevention plan of care per policy 2. Provide and maintain a safe environment 3. Proper use of double Identifiers 4. Medication administration using the 5 rights 5. Hand hygiene 6. Specimens are labeled at the bedside 7. Instruct patient/ patient community 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 about use of safety devices 8. Include patient/ patient community 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 in decisions related to safety Outcome: Progressing Note: Evaluation of progress towards goal: remains free from falls/injury Problem: Glucose Imbalance Goal: Clinical indication of glucose balance is achieved Description: Patient's goal is: INTERVENTIONS 1. Monitor blood glucose levels as ordered 2. Administer medications as ordered 3. Notify physician of ineffective treatment plan Outcome: Progressing Note: Evaluation of progress towards goal: monitor and treat blood sugar as needed Problem: Safety Goal: Patient will be injury free during hospitalization Description: INTERVENTIONS: 1. Assess patient's risk for falls and implement fall prevention plan of care per policy 2. Provide and maintain a safe environment 3. Proper use of double Identifiers 4. Medication administration using the 5 rights 5. Hand hygiene 6. Specimens are labeled at the bedside 7. Instruct patient/ patient community 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 about use of safety devices 8. Include patient/ patient community 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 in decisions related to safety Outcome: Progressing Note: Evaluation of progress towards goal: Able to ambulate In and Out of the bed independently. No injury/ trauma/ fall. Hourly rounds completed. Problem: Infection Goal: Absence of infection during hospitalization Description: Interventions: 1. Assess and monitor for signs and symptoms of infection 2. Monitor lab/diagnostic results 3. Monitor all insertion sites i.e., indwelling lines, tubes and drains 4. Monitor endotracheal (as able) and nasal secretions for changes in amount and color 5. Administer medications as ordered 6. Instruct and encourage patient and family to use good hand hygiene technique 7. Identify and instruct patient/patient community 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 in use of appropriate isolation precautions for identified infection/symptoms 8. Provide and discuss with patient/patient community 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 on educational MDRO sheet 9. Encourage and monitor nutritional status daily and consult pharmacogeneticist if indicated 10. Implement neutropenic guidelines as needed 11. Review exposure to history of communicable disease and recent travel history on admission 12. Encourage annual influenza vaccine 13. Encourage pneumonia vaccine Outcome: Progressing Note: Evaluation of progress towards goal: U/A positive for nitrates, started with ceftriaxone IV, afebrile overnight. Problem: Glucose Imbalance Goal: Clinical indication of glucose balance is achieved Description: Patient's goal is: INTERVENTIONS 1. Monitor blood glucose levels as ordered 2. Administer medications as ordered 3. Notify physician of ineffective treatment plan Outcome: Progressing Note: Evaluation of progress towards goal: BS levels around 300mg/dl, insulin given PRN given. Images from the original note were not included. DISCHARGE PLANNING NOTE The pt discussed in rounds this AM, is not ready to DC due to high blood sugars, continue to monitor. IV meds for acute cystitis, Urine culture pending. Later informed by RN that she qualified for home oxygen with activity: 2L. Met with pt, introduced to self, role of SW and reason for visit. Pt reports she is typically independent in/out of home. Pt resides with spouse Braxton of 16 years who provides support and assistance as needed. Pt informs her mom and brother both live locally providing additional supportive relationships. Pt reports she is not on disability, unemployed and supports her financially. School Psychology Professor reviewed goal for safe dc, discussed community resources; pt does not endorse home going needs including for HHC. She does agree to home oxygen discussed as below Pt verified PCP and med appt transportation. Pt denies substance use/abuse. Pt denies domestic partner violence or concerns for safety. Pt denies suicidal ideations follows with PCP for med mgt of anxiety and depression. Pt does not endorse food insecurity, reports utilities in good working order, denies difficulty affording home medications; preferred pharmacy is [facility] in [place]. Pt prefers to make own appt, Informed ad copy writer will f/u tomorrow to assist with finalizing home oxygen referral. She did not have any other questions or concerns at this time. 12/21/23 2273 Discharge Disposition Discharge Disposition Home Durable Medical Equipment (Qualified for oxygen with activity: Requests referral sent to [facility] She has had oxygen in the past from [facility] County Information County of Residence [place] Patient Information Primary Caregiver Self Support System Immediate family Stressors Type of stressor (Denies) Income Information Income Information Unemployed ( provides income. 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ed to [facility] to start oxygen referral and will need testing and face to face note when completed. Also informed pt would need to call the financial department to discuss outstanding balance owed before the referral can be completed. The pt provided with contact info and started to call when ad copy writer left room. Type of Residence Private residence Private Residence [address] [place] Home Care Services No Community Agencies Currently Utilized None Established DME Comments [place] Patient expects to be discharged to: Home with oxygen with activity. Does the patient need discharge transport arranged? No Services Requested: Services Requested Discharge Disposition: Home with self care, Home Durable Medical Equipment (Will need home oxygen) Home Durable Medical Equipment Name: [facility] Home Durable Medical Equipment Home Durable Medical Equipment Does the patient need discharge transportation arranged?: No Patient choice offered: Yes List Provided: Patient declined Patient Declined: Other (must state reason) (Requested) Initial DC Assessment Completed: Yes Patient Goals: Patient/Caregiver Goals Patient/Caregiver Goals: Home with Outpatient Service Provider Goals: Goals Home with oxygen (pt-stated) Evaluation of progress towards goal: In progress: Home with oxygen tomorrow. DISCHARGE PLANNING NOTE Referral sent to [facility], and [facility] ([place]- P# ; F# ) ([place]- P# ; F# ) ([place]- P# ; F# ) ([place]- P# ; F# ) ([place]- P# ; F# ) ([place]- P# ; F# ) ([place]- P# [phone] ; F# [phone]) Problem: Knowledge Deficit Goal: Patient/patient community 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 demonstrates understanding of disease process, treatment plan, medications, and discharge instructions Description: INTERVENTIONS 1. Complete learning assessment and assess knowledge base 2. Provide teaching at level of understanding 3. Provide teaching via preferred learning method(s) Outcome: Progressing Note: Evaluation of progress towards goal: Patient educated on diabetic mgmt, glucose monitoring, and insulin administration. Pt also educated on diet and lifestyle modifications. Verbalized understanding and demonstrated skills back. Problem: Discharge Planning Goal: Discharge to post-acute care, other facility, or home with appropriate resources Description: Patient's goal is: INTERVENTIONS 1. Conduct assessment to determine patient/family and health care team treatment goals, and need for post-acute services based on payer coverage, community resources, and patient preferences, and barriers to discharge 2. Coordinate with Social work, Care Navigation, and Utilization Review to arrange appropriate level of services according to patient's needs based on patient preference and payer coverage in collaboration with the physician and health care team 3. Address psychosocial, clinical, and financial barriers to discharge as identified in assessment in conjunction with the patient/family and health care team 4. Consult appropriate ancillary services (i.e.. PT/OT/ST, etc) as needed 5. Communicate with and update the patient/family, physician, and health care team regarding progress on the discharge plan 6. Identify discharge learning needs (meds, wound care, etc). 7. Arrange for needed discharge transportation as appropriate Outcome: Progressing Note: Evaluation of progress towards goal: Patient is expected to discharge back to group apartment complex in care of staff, pt qualifies to be discharged on home O2 and is awaiting that to be arranged. Problem: Safety Goal: Patient will be injury free during hospitalization Description: INTERVENTIONS: 1. Assess patient's risk for falls and implement fall prevention plan of care per policy 2. Provide and maintain a safe environment 3. Proper use of double Identifiers 4. Medication administration using the 5 rights 5. Hand hygiene 6. Specimens are labeled at the bedside 7. Instruct patient/ patient community 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 about use of safety devices 8. Include patient/ patient community 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 in decisions related to safety Outcome: Progressing Note: Evaluation of progress towards goal: Pt remains free from falls or accidental injury during stay. Fall prevention measures in place. Hourly rounding per RN and NA maintained. Problem: Knowledge Deficit Goal: Patient/patient community 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 demonstrates understanding of disease process, treatment plan, medications, and discharge instructions Description: INTERVENTIONS 1. Complete learning assessment and assess knowledge base 2. Provide teaching at level of understanding 3. Provide teaching via preferred learning method(s) Outcome: Progressing Note: Evaluation of progress towards goal: Patient has intermittent confusion. Answered questions when asked. Reorientated as needed. Continue to monitor and assess for appropiateness to involve patient in care. documented in this encounter [facility] 12-22-2023 Plan of care note Problem: Pain Goal: Patient goal is pain score less than 4, able to rest, and participant in treatment plan as appropriate Description: INTERVENTIONS: 1. Encourage patient or legal community 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 to report early pain and ask for pain medicine when needed 2. Assess pain using appropriate pain scale and include the scale used when documenting 3. Administer analgesics based on type and severity of pain and evaluate response within appropriate time frame 4. Implement non-pharmacological measures as appropriate and evaluate response 5. Consider cultural and social influences on pain and pain management 6. Notify LIP if interventions ineffective or patient reports new pain 7. Monitor vital signs including pulse ox, end-tidal CO2 based on pain intervention 8. Reassess pain per policy 9. Teach patient or legal community 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 interventions for comforting Outcome: Progressing Note: Evaluation of progress towards goal: Pt rates pain 0, prn medication available. Problem: Safety Goal: Patient will be injury free during hospitalization Description: INTERVENTIONS: 1. Assess patient's risk for falls and implement fall prevention plan of care per policy 2. Provide and maintain a safe environment 3. Proper use of double Identifiers 4. Medication administration using the 5 rights 5. Hand hygiene 6. Specimens are labeled at the bedside 7. Instruct patient/ patient community 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 about use of safety devices 8. Include patient/ patient community 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 in decisions related to safety Outcome: Progressing Note: Evaluation of progress towards goal: Pt. Remains free from falls and injuries. Call light in reach, bed in lowest position. Problem: Infection Goal: Absence of infection during hospitalization Description: Interventions: 1. Assess and monitor for signs and symptoms of infection 2. Monitor lab/diagnostic results 3. Monitor all insertion sites i.e., indwelling lines, tubes and drains 4. Monitor endotracheal (as able) and nasal secretions for changes in amount and color 5. Administer medications as ordered 6. Instruct and encourage patient and family to use good hand hygiene technique 7. Identify and instruct patient/patient community 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 in use of appropriate isolation precautions for identified infection/symptoms 8. Provide and discuss with patient/patient community 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 on educational MDRO sheet 9. Encourage and monitor nutritional status daily and consult pharmacogeneticist if indicated 10. Implement neutropenic guidelines as needed 11. Review exposure to history of communicable disease and recent travel history on admission 12. Encourage annual influenza vaccine 13. Encourage pneumonia vaccine Outcome: Progressing Note: Evaluation of progress towards goal: Problem: Knowledge Deficit Goal: Patient/patient community 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 demonstrates understanding of disease process, treatment plan, medications, and discharge instructions Description: INTERVENTIONS 1. Complete learning assessment and assess knowledge base 2. Provide teaching at level of understanding 3. Provide teaching via preferred learning method(s) Outcome: Progressing Note: Evaluation of progress towards goal: Patient updated on POC along with medication. Patient voiced understanding. ' Problem: Discharge Planning Goal: Discharge to post-acute care, other facility, or home with appropriate resources Description: Patient's goal is: INTERVENTIONS 1. Conduct assessment to determine patient/family and health care team treatment goals, and need for post-acute services based on payer coverage, community resources, and patient preferences, and barriers to discharge 2. Coordinate with Social work, Care Navigation, and Utilization Review to arrange appropriate level of services according to patient's needs based on patient preference and payer coverage in collaboration with the physician and health care team 3. Address psychosocial, clinical, and financial barriers to discharge as identified in assessment in conjunction with the patient/family and health care team 4. Consult appropriate ancillary services (i.e.. PT/OT/ST, etc) as needed 5. Communicate with and update the patient/family, physician, and health care team regarding progress on the discharge plan 6. Identify discharge learning needs (meds, wound care, etc). 7. Arrange for needed discharge transportation as appropriate Outcome: Progressing Note: Evaluation of progress towards goal: Multidisciplinary teams working together with patient to achieve discharge goals. [facility] 12-22-2023 Hospital Discharge instructions DOC Taylor - 12/22/2023 6:09 PM EDT Please call [facility] for update on oxygen. [phone]. Unable to arrange with [facility] due to outstanding bill. Your RT testing was good showing you did not need it today: 12/22/23 1529 Home Oxygen Qualification - Resting Method *Complete within 48 Hrs of Discharge SpO2 On Room Air At Rest 93 % Home Oxygen Qualification - Exercise/Ambulation Method SpO2 On Room Air With Exercise/Ambulation 91 % The following attachments cannot be sent through Care Everywhere.Urinary Tract Infection Discharge Instructions, Adult ([place])Type 2 Diabetes Discharge Instructions ([place])Sleep Apnea Discharge Instructions ([place])documented in this encounter [facility] 12-22-2023 History of Present illness Narrative 12/22/23 1529 Home Oxygen Qualification - Resting Method *Complete within 48 Hrs of Discharge SpO2 On Room Air At Rest 93 % Home Oxygen Qualification - Exercise/Ambulation Method SpO2 On Room Air With Exercise/Ambulation 91 % Summary: Home 02 evalution 12/21/23 1035 Home Oxygen Qualification - Resting Method *Complete within 48 Hrs of Discharge SpO2 On Room Air At Rest 90 % Home Oxygen Qualification - Exercise/Ambulation Method SpO2 On Room Air With Exercise/Ambulation 88 % Amount Of O2 Applied During Exercise/Ambulation To Keep SpO2 >88% 2 L/min SpO2 On Applied O2 With Exercise/Ambulation 94 % [facility] Progress note Formatting of t his note might be different from the original. DISCHARGE PLANNING NOTE DTR Carissa Santos SOB (shortness of breath) [R06.02] Hyperglycemia [R73.9] Acute cystitis without hematuria [N30.00] Per Rosemary Zurita CNP request: OP consult to Pulmonology for the following: . Outpatient visit to Pulmonary to see if PFT warranted . Patient is newly on home oxygen . [facility]. - Stacey Smith RN 12/22/23 11:04 AM [facility] 12-22-2023 Progress note Formatting of t his note is different from the original. Images from the original note were not included. DISCHARGE PLANNING NOTE Follow-up Discharge Planning Progress Note Per RN during discharge transition rounds, barriers to discharge are: None Discharge Plan: DC to home with new oxygen referral with [facility] Await final arrangements and delivery of portable to room then pt can DC. RN and pt updated. Oxygen orders and face to face note attached in careport for [facility] to finalize oxygen referral and set up delivery. DOC Taylor, 12/22/2023, 10:57 AM Informed by [facility] that the pt has an outstanding bill with them and will not make payment. Therefore they will not be able to arrange the oxygen. This was discussed with pt who confirmed this. She asked ad copy writer to try another DME. Staff updated on oxygen barrier. [facility] and also called: [phone] and spoke to Talisha who was able to confirm referral was received. It could take an hour to process. Sticky note updated for staff to call with update. DOC Taylor, 12/22/2023, 3:23 PM Care Navigation will continue to follow. Services Requested: Services Requested Discharge Disposition: Home with self care, Home Durable Medical Equipment (Will need home oxygen) Home Durable Medical Equipment Name: [facility] Home Durable Medical Equipment Home Durable Medical Equipment Does the patient need discharge transportation arranged?: No Patient choice offered: Yes List Provided: Patient declined Patient Declined: Other (must state reason) (Requested) Initial DC Assessment Completed: Yes DC Planning Complete Discharge Milestones: Yes Patient Goals: Patient/Caregiver Goals Patient/Caregiver Goals: Home with Outpatient Service Provider Goals: Goals Home with oxygen (pt-stated) Evaluation of progress towards goal: In progress: Home with oxygen tomorrow. DC to home with oxygen today. DOC Taylor, 12/22/2023, 10:51 AM [facility] 12-22-2023 Hospital course Narrative Images from the original note were not included. [facility] Hospital Medicine Discharge Summary Patient: Carissa Santos Date of : 1980 Room: [facility] Encounter date: 12/22/23 DATE OF ADMISSION: 12/20/2023 DATE OF DISCHARGE:12/22/2023 DISCHARGE DIAGNOSES Principal Problem: Type 2 diabetes mellitus with hyperglycemia, with long-term current use of insulin ([facility]) Active Problems: Hyperglycemia Obstructive sleep apnea syndrome Severe obesity (BMI >= 40) ([facility]) Hyperlipidemia associated with type 2 diabetes mellitus ([facility]) Acute cystitis without hematuria CONSULTANTS None PCP: DIAZ DALTON MD PROCEDURES none HOSPITAL COURSE SUMMARY Per HPI: Carissa Santos is a 43 y.o. female who presents with reports of shortness of breath. This has been going on for a week and a half. Seems to be mostly exertional. She relates moving laundry from the washer to the dryer or walking from her chair to the bathroom makes her short of breath. She recovers with rest. Denies any chest pain. No fever or chills. No cough. No dizziness or lightheadedness. No nausea, vomiting or diaphoresis. Denies history of asthma or copd. She does not smoke. Patient has history of hypertension high cholesterol diabetes. No personal history of coronary artery disease. She does relate a history of coronary artery disease in mom who reportedly had heart attack. Patient does relate a remote history of DVT and she was on blood thinners for period of time but could not give me any more specifics regarding this. She has not currently on blood thinners. No recent surgeries or travel. She takes no control. No personal history of cancer. ER Course: CBC within normal limits. CMP showed a hyperglycemia with a glucose of 928, pseudo hyponatremia with sodium of 123. Started fluids and will administer insulin. Bedside fingertip confirms glucose greater than 500. Patient's initial troponin D-dimer also negative. BNP is negative. Chest x-ray interpreted by radiology shows no acute process. Interestingly patient's urine is positive for nitrites also spilling glucose. Repeat glucose is still >500. I added on ketones. Bicarb is normal and normal anion gap. She is not vomiting or ill appearing. She is agreeable to admission to get her sugar under control. I updated her on her other negative test results. Added on ketones. Urine dip shows nitrites and glucose. Sent for culture and started on rocephin. While she was here she was treated for Rocephin times 3 days for UTI. She was also treated with nebulizer treatments and oxygen for hypoxia. All testing negative for acute conditions resulting in hypoxia. Unsure if has new onset asthma/COPD versus hypoventilation syndrome due to obesity. Will have patient follow-up with pulmonology as an outpatient as well as outpatient PFT for further evaluation of hypoxia. Patient did qualify for home oxygen during admission. Patient be discharged home with oxygen continuous at least until can be seen by pulmonology. 12/22/23, Hospital Day: 3 Interval History: Status: improved. No overnight events or new complaints. Shortness of breath improving. Still hypoxic. Review of Systems Constitutional: Negative for activity change, appetite change, fatigue and unexpected weight change. HENT: Negative for trouble swallowing. Respiratory: Negative for cough, sputum production, shortness of breath and wheezing. Cardiovascular: Negative for chest pain, palpitations and leg swelling. Gastrointestinal: Negative for abdominal pain, blood in stool, melena, constipation, diarrhea, nausea and vomiting. Genitourinary: Negative for difficulty urinating. Skin: Negative for color change and wound. Neurological: Negative for dizziness, seizures, speech difficulty and headaches. Psychiatric/Behavioral: Negative for sleep disturbance. Physical Exam BP 96/57 Pulse 76 Temp 36.4 C (97.6 F) (Oral) Resp 20 Ht 154.9 cm (5' 0.98 ) Wt 101.9 kg (224 lb 9.6 oz) SpO2 91% BMI 42.46 kg/m Intake/Output Summary (Last 24 hours) at 12/22/2023 1044 Last data filed at 12/22/2023 0713 Gross per 24 hour Intake 3757.74 ml Output -- Net 3757.74 ml Constitutional: General: No acute distress. Cardiovascular: Rate and Rhythm: Normal rate and regular rhythm. Heart sounds: Normal heart sounds, S1 normal and S2 normal. Pulmonary: Effort: Pulmonary effort is normal. Breath sounds: Normal breath sounds. Musculoskeletal: Right lower leg: No edema. Left lower leg: No edema. Skin: General: Skin is warm and dry. Coloration: Skin is not pale. Neurological: General: No focal deficit present. Psychiatric: Mood and Affect: Anxious mood. Behavior: Behavior normal. Labs Recent Results (from the past 48 hour(s)) CBC auto differential Collection Time: 12/20/23 5:09 PM Result Value Ref Range White Blood Cells 6.1 4.0 - 11.0 X10E9/L RBC count 4.60 3.80 - 5.20 X10E12/L Hemoglobin 13.2 11.7 - 15.5 g/dL Hematocrit 40.4 35 - 47 % MCV 88 80 - 100 fL MCH 28.8 27 - 34 pg MCHC 32.8 32 - 36 g/dL RDW 13.6 11.5 - 15.0 % Platelets 227 150 - 450 X10E9/L MPV 7.6 7 - 12 fL % neutrophils 54.5 % % lymphocytes 37.6 % % monocytes 6.3 % % eosinophils 1.1 % % Basophils 0.5 % Neutrophils Absolute (A) 3.3 1.5 - 6.6 X10E9/L Lymphocytes Absolute 2.3 1.0 - 3.5 X10E9/L Monocytes Absolute 0.4 0 - 0.9 X10E9/L Eosinophils Absolute 0.1 0.0 - 0.4 X10E9/L Basophils Absolute 0.0 0.0 - 0.2 X10E9/L Comprehensive metabolic panel Collection Time: 12/20/23 5:09 PM Result Value Ref Range Sodium 123 (L) 134 - 146 mmol/L Potassium, Bld 4.7 3.5 - 5.0 mmol/L Chloride 87 (L) 98 - 109 mmol/L CO2 24 22 - 32 mmol/L Anion gap 12 5 - 15 mmol/L BUN 31 (H) 5 - 23 mg/dL Creatinine 1.17 (H) 0.40 - 1.00 mg/dL Glucose 928 (HH) 65 - 99 mg/dL Calcium 9.0 8.5 - 10.5 mg/dL Total Protein 7.5 6.0 - 8.0 g/dL Albumin 3.4 3.2 - 5.3 g/dL Alkaline Phosphatase 91 39 - 130 U/L AST 17 0 - 41 U/L ALT 23 0 - 31 U/L Total bilirubin 0.4 0.3 - 1.2 mg/dL eGFR (CKD-EPI)non-race dependent 59 (L) >59 ml/min/1.73sq.m Troponin I, High Sensitivity Collection Time: 12/20/23 5:09 PM Result Value Ref Range Troponin I, High Sensitivity <2 <16 ng/L D-Dimer Collection Time: 12/20/23 5:09 PM Result Value Ref Range D-dimer <150 <255 ng/mL DDU B-type natriuretic peptide Collection Time: 12/20/23 5:09 PM Result Value Ref Range BNP 10 <100.0 pg/mL POCT Nursing Urine Macroscopic UA Collection Time: 12/20/23 5:17 PM Result Value Ref Range Specific gravity SMITHA <=1.005 1.003 - 1.035 Leukocyte esterase SMITHA Negative Negative^Negative Nitrite SMITHA Positive (A) Negative^Negative Ph 5.0 5.0 - 8.5 Protein SMITHA Negative Negative^Negative mg/dL Urine glucose SMITHA >=1000 (A) Negative^Negative mg/dL Ketones SMITHA Negative Negative^Negative mg/dL Urobilinogen SMITHA 0.2 <1.1 eu/dL Bilirubin SMITHA Negative Negative^Negative Hemoglobin SMITHA Negative Negative^Negative Bedside Glucose *Place/Obtain serum glucose if >500(>600 [facility]) per glucometer. Collection Time: 12/20/23 5:57 PM Result Value Ref Range Bedside glucose >500 (HH) 65 - 99 mg/dL Troponin I, High Sensitivity 1 Hour Collection Time: 12/20/23 6:13 PM Result Value Ref Range 1 Hour Trop I, High Sensitivity 3 <16 ng/L Acetone, (BetaHydroxybutyrate, Ketone) quantitative, serum Collection Time: 12/20/23 6:13 PM Result Value Ref Range Beta hydroxy buterate 0.14 0.02 - 0.27 mmol/L Bedside Glucose *Place/Obtain serum glucose if >500(>600 [facility]) per glucometer. Collection Time: 12/20/23 7:25 PM Result Value Ref Range Bedside glucose >500 (HH) 65 - 99 mg/dL Bedside Glucose *Place/Obtain serum glucose if >500(>600 [facility]) per glucometer. Collection Time: 12/20/23 8:19 PM Result Value Ref Range Bedside glucose >500 (HH) 65 - 99 mg/dL Bedside Glucose *Place/Obtain serum glucose if >500(>600 [facility]) per glucometer. Collection Time: 12/20/23 10:44 PM Result Value Ref Range Bedside glucose 350 (H) 65 - 99 mg/dL Basic Metabolic Panel Collection Time: 12/21/23 5:33 AM Result Value Ref Range Sodium 134 134 - 146 mmol/L Potassium, Bld 4.2 3.5 - 5.0 mmol/L Chloride 96 (L) 98 - 109 mmol/L CO2 29 22 - 32 mmol/L Anion gap 9 5 - 15 mmol/L BUN 27 (H) 5 - 23 mg/dL Creatinine 0.80 0.40 - 1.00 mg/dL Glucose 340 (H) 65 - 99 mg/dL Calcium 8.7 8.5 - 10.5 mg/dL eGFR (CKD-EPI)non-race dependent >90 >59 ml/min/1.73sq.m Magnesium Collection Time: 12/21/23 5:33 AM Result Value Ref Range Magnesium 1.9 1.8 - 2.6 mg/dL CBC without diff Collection Time: 12/21/23 5:33 AM Result Value Ref Range White Blood Cells 5.0 4.0 - 11.0 X10E9/L RBC count 4.33 3.80 - 5.20 X10E12/L Hemoglobin 12.6 11.7 - 15.5 g/dL Hematocrit 36.6 35 - 47 % MCV 85 80 - 100 fL MCH 29.0 27 - 34 pg MCHC 34.3 32 - 36 g/dL RDW 13.2 11.5 - 15.0 % Platelets 213 150 - 450 X10E9/L MPV 7.3 7 - 12 fL Glucose random or fasting Collection Time: 12/21/23 8:54 AM Result Value Ref Range Glucose 409 (HH) 65 - 99 mg/dL Bedside Glucose *Place/Obtain serum glucose if >500(>600 [facility]) per glucometer. Collection Time: 12/21/23 11:25 AM Result Value Ref Range Bedside glucose 307 (H) 65 - 99 mg/dL Bedside Glucose *Place/Obtain serum glucose if >500(>600 [facility]) per glucometer. Collection Time: 12/21/23 5:03 PM Result Value Ref Range Bedside glucose 323 (H) 65 - 99 mg/dL Bedside Glucose *Place/Obtain serum glucose if >500(>600 [facility]) per glucometer. Collection Time: 12/21/23 8:37 PM Result Value Ref Range Bedside glucose 363 (H) 65 - 99 mg/dL Basic Metabolic Panel Collection Time: 12/22/23 5:03 AM Result Value Ref Range Sodium 135 134 - 146 mmol/L Potassium, Bld 4.0 3.5 - 5.0 mmol/L Chloride 100 98 - 109 mmol/L CO2 25 22 - 32 mmol/L Anion gap 10 5 - 15 mmol/L BUN 28 (H) 5 - 23 mg/dL Creatinine 0.87 0.40 - 1.00 mg/dL Glucose 301 (H) 65 - 99 mg/dL Calcium 8.3 (L) 8.5 - 10.5 mg/dL eGFR (CKD-EPI)non-race dependent 84 >59 ml/min/1.73sq.m Magnesium Collection Time: 12/22/23 5:03 AM Result Value Ref Range Magnesium 1.9 1.8 - 2.6 mg/dL CBC without diff Collection Time: 12/22/23 5:03 AM Result Value Ref Range White Blood Cells 5.1 4.0 - 11.0 X10E9/L RBC count 4.26 3.80 - 5.20 X10E12/L Hemoglobin 12.3 11.7 - 15.5 g/dL Hematocrit 36.6 35 - 47 % MCV 86 80 - 100 fL MCH 28.9 27 - 34 pg MCHC 33.6 32 - 36 g/dL RDW 13.4 11.5 - 15.0 % Platelets 220 150 - 450 X10E9/L MPV 7.4 7 - 12 fL Radiology X-ray chest 1 view Result Date: 12/20/2023 Narrative: Single view chest History:sob Difficulty breathing, shortness of breath Comparison: 06/04/2023 Findings: Single portable view of the chest. Stable cardia mediastinal silhouette. No focal opacity, effusion or pneumothorax. Impression: No evidence of acute cardiac pulmonary process. Finalized by Aliya Gan MD on 12/20/2023 5:35 PM Bronchoscopy Report Result Date: 11/22/2023 Narrative: This order has been auto-finalized for image and report archival in PACs. *For full report details, please reach out to your physician. This image is visible to you in MyChart.* DISCHARGE ASSESSMENT & PLAN Home oxygen ordered. Patient had a home O2 evaluation completed today. Oxygen needed at rest. Oxygen taken off and patient did drop to 87%. Oxygen was applied at 1 L per nasal cannula and oxygen level returned to 92-93%. With exertion patient did drop to 88%. She became short of breath. Oxygen was placed on at 2 L per nasal cannula and patient oxygen saturation increased to 94%. [id number] evaluation was completed today. Home O2 evaluation noted. Patient will need portable oxygen concentrator as She is mobile in her home in order to maintain her saturations greater than 90% secondary to hypoxia. Keflex b.I.d. times 4 days for UTI. Albuterol inhaler as needed for wheezing or shortness of breath. DISCHARGE INSTRUCTION Disposition: Home Condition: Good Activity: activity as tolerated Diet: Adult diet Regular Texture; Consistent Carb 255 grams (2000 kcal); Low Fat/Low Cholesterol Adult diet Follow up: DIAZ DALTON MD within 7-14 days. Follow-up with pulmonology as scheduled. Labs/Imaging/Pathology: Pulmonology PFT Discharge Medications: Medication List START taking these medications Instructions Last Dose Given Next Dose Due albuterol 90 mcg/actuation inhaler Commonly known as: PROVENTIL HFA;VENTOLIN HFA Inhale 2 puffs every 6 (six) hours as needed for wheezing or shortness of breath. CEPHalexin 500 mg capsule Commonly known as: KEFLEX Take 1 capsule (500 mg total) by mouth in the morning and 1 capsule (500 mg total) before bedtime. Do all this for 4 days. CONTINUE taking these medications Instructions Last Dose Given Next Dose Due atorvastatin 40 mg tablet Commonly known as: LIPITOR Take 1 tablet (40 mg total) by mouth in the morning. buPROPion XL 300 mg 24 hr tablet Commonly known as: WELLBUTRIN XL Take 1 tablet (300 mg total) by mouth every morning. cholecalciferol (vitamin D3) 400 units tablet Take 1 tablet (400 Units total) by mouth in the morning. insulin aspart U-100 100 unit/mL injection Commonly known as: NovoLOG Inject under the skin 3 (three) times a day before meals. insulin glargine 100 unit/mL injection Commonly known as: LANTUS Inject 0.15 mL (15 Units total) under the skin in the morning. lamoTRIgine 200 mg tablet Commonly known as: LaMICtal Take 1 tablet (200 mg total) by mouth in the morning. Indications: bipolar depression. lisinopriL 2.5 mg tablet Commonly known as: PRINIVIL,ZESTRIL Take 1 tablet (2.5 mg total) by mouth in the morning. pantoprazole 40 mg EC tablet Commonly known as: PROTONIX Take 1 tablet (40 mg total) by mouth every morning before breakfast. pioglitazone 45 mg tablet Commonly known as: ACTOS Take 1 tablet (45 mg total) by mouth in the morning. prazosin 2 mg capsule Commonly known as: MINIPRESS Take 1 capsule (2 mg total) by mouth nightly. sertraline 100 mg tablet Commonly known as: ZOLOFT Take 1 tablet (100 mg total) by mouth in the morning. Where to Get Your Medications These medications were sent to [id number] - [place], [place] - [address] [facility] [address] [facility] [id number] albuterol 90 mcg/actuation inhaler CEPHalexin 500 mg capsule >30 minutes were spent on discharging this patient. Eddie Zurita APRN-PACKER INSPECTOR, 12/22/2023 10:44 AM [facility] Hospitalists 7AM-7PM: Message rounding MARY JO in [employer] or page through [employer]. 7PM-7AM: Page on-call MARY JO through our answering service, . Physician Attestation: I have reviewed the above note authored by the Advance Practice Provider (MARY JO) including history, review of systems, physical examination, medical decision making and agree with the assessment & plan. I have personally performed a face to face diagnostic evaluation on this patient. I have reviewed all laboratory findings and imaging reports/films. I have independently evaluated the patient and repeated timmons portions of the physical exam. I agree with the MARY JO plan as above, unless otherwise noted. EZEQUIEL GRAFF MD documented in this encounter [facility] 12-22-2023 Plan of care note Problem: Pain Goal: Patient goal is pain score less than 4, able to rest, and participant in treatment plan as appropriate Description: INTERVENTIONS: 1. Encourage patient or legal community 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 to report early pain and ask for pain medicine when needed 2. Assess pain using appropriate pain scale and include the scale used when documenting 3. Administer analgesics based on type and severity of pain and evaluate response within appropriate time frame 4. Implement non-pharmacological measures as appropriate and evaluate response 5. Consider cultural and social influences on pain and pain management 6. Notify LIP if interventions ineffective or patient reports new pain 7. Monitor vital signs including pulse ox, end-tidal CO2 based on pain intervention 8. Reassess pain per policy 9. Teach patient or legal community 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 interventions for comforting Outcome: Progressing Note: Evaluation of progress towards goal: monitor and treat ain as ordered Problem: Safety Goal: Patient will be injury free during hospitalization Description: INTERVENTIONS: 1. Assess patient's risk for falls and implement fall prevention plan of care per policy 2. Provide and maintain a safe environment 3. Proper use of double Identifiers 4. Medication administration using the 5 rights 5. Hand hygiene 6. Specimens are labeled at the bedside 7. Instruct patient/ patient community 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 about use of safety devices 8. Include patient/ patient community 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 in decisions related to safety Outcome: Progressing Note: Evaluation of progress towards goal: remains free from falls/injury Problem: Glucose Imbalance Goal: Clinical indication of glucose balance is achieved Description: Patient's goal is: INTERVENTIONS 1. Monitor blood glucose levels as ordered 2. Administer medications as ordered 3. Notify physician of ineffective treatment plan Outcome: Progressing Note: Evaluation of progress towards goal: monitor and treat blood sugar as needed [facility] 12-22-2023 Plan of care note Problem: Safety Goal: Patient will be injury free during hospitalization Description: INTERVENTIONS: 1. Assess patient's risk for falls and implement fall prevention plan of care per policy 2. Provide and maintain a safe environment 3. Proper use of double Identifiers 4. Medication administration using the 5 rights 5. Hand hygiene 6. Specimens are labeled at the bedside 7. Instruct patient/ patient community 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 about use of safety devices 8. Include patient/ patient community 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 in decisions related to safety Outcome: Progressing Note: Evaluation of progress towards goal: Able to ambulate In and Out of the bed independently. No injury/ trauma/ fall. Hourly rounds completed. Problem: Infection Goal: Absence of infection during hospitalization Description: Interventions: 1. Assess and monitor for signs and symptoms of infection 2. Monitor lab/diagnostic results 3. Monitor all insertion sites i.e., indwelling lines, tubes and drains 4. Monitor endotracheal (as able) and nasal secretions for changes in amount and color 5. Administer medications as ordered 6. Instruct and encourage patient and family to use good hand hygiene technique 7. Identify and instruct patient/patient community 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 in use of appropriate isolation precautions for identified infection/symptoms 8. Provide and discuss with patient/patient community 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 on educational MDRO sheet 9. Encourage and monitor nutritional status daily and consult pharmacogeneticist if indicated 10. Implement neutropenic guidelines as needed 11. Review exposure to history of communicable disease and recent travel history on admission 12. Encourage annual influenza vaccine 13. Encourage pneumonia vaccine Outcome: Progressing Note: Evaluation of progress towards goal: U/A positive for nitrates, started with ceftriaxone IV, afebrile overnight. Problem: Glucose Imbalance Goal: Clinical indication of glucose balance is achieved Description: Patient's goal is: INTERVENTIONS 1. Monitor blood glucose levels as ordered 2. Administer medications as ordered 3. Notify physician of ineffective treatment plan Outcome: Progressing Note: Evaluation of progress towards goal: BS levels around 300mg/dl, insulin given PRN given. [facility] 12-21-2023 Progress note Formatting of t his note is different from the original. Images from the original note were not included. DISCHARGE PLANNING NOTE The pt discussed in rounds this AM, is not ready to DC due to high blood sugars, continue to monitor. IV meds for acute cystitis, Urine culture pending. Later informed by RN that she qualified for home oxygen with activity: 2L. Met with pt, introduced to self, role of SW and reason for visit. Pt reports she is typically independent in/out of home. Pt resides with spouse Braxton of 16 years who provides support and assistance as needed. Pt informs her mom and brother both live locally providing additional supportive relationships. Pt reports she is not on disability, unemployed and supports her financially. School Psychology Professor reviewed goal for safe dc, discussed community resources; pt does not endorse home going needs including for HHC. She does agree to home oxygen discussed as below Pt verified PCP and med appt transportation. Pt denies substance use/abuse. Pt denies domestic partner violence or concerns for safety. Pt denies suicidal ideations follows with PCP for med mgt of anxiety and depression. Pt does not endorse food insecurity, reports utilities in good working order, denies difficulty affording home medications; preferred pharmacy is [facility] in [place]. Pt prefers to make own appt, Informed ad copy writer will f/u tomorrow to assist with finalizing home oxygen referral. She did not have any other questions or concerns at this time. 12/21/23 1656 Discharge Disposition Discharge Disposition Home Durable Medical Equipment (Qualified for oxygen with activity: Requests referral sent to [facility] She has had oxygen in the past from [facility] is now [facility] County Information County of Residence [place] Patient Information Primary Caregiver Self Support System Immediate family Stressors Type of stressor (Denies) Income Information Income Information Unemployed ( provides income. 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 Tasked to [facility] to start oxygen referral and will need testing and face to face note when completed. Also informed pt would need to call the financial department to discuss outstanding balance owed before the referral can be completed. The pt provided with contact info and started to call when ad copy writer left room. Type of Residence Private residence Private Residence 1 story Home Care Services No Community Agencies Currently Utilized None Established DME Comments [place] Patient expects to be discharged to: Home with oxygen with activity. Does the patient need discharge transport arranged? No Services Requested: Services Requested Discharge Disposition: Home with self care, Home Durable Medical Equipment (Will need home oxygen) Home Durable Medical Equipment Name: [email or web address] Home Durable Medical Equipment Home Durable Medical Equipment Does the patient need discharge transportation arranged?: No Patient choice offered: Yes List Provided: Patient declined Patient Declined: Other (must state reason) (Requested) Initial DC Assessment Completed: Yes Patient Goals: Patient/Caregiver Goals Patient/Caregiver Goals: Home with Outpatient Service Provider Goals: Goals Home with oxygen (pt-stated) Evaluation of progress towards goal: In progress: Home with oxygen tomorrow. [facility] 12-21-2023 Progress note Formatting of t his note might be different from the original. DISCHARGE PLANNING NOTE Referral sent to [facility], and [facility] ([place]- P# ; F# ) ([place]- P# ; F# ) ([place]- P# ; F# ) ([place]- P# ; F# ) ([place]- P# ; F# ) ([place]- P# ; F# ) ([place]- P# [phone] ; F# [phone]) [facility] 12-21-2023 Plan of care note Problem: Knowledge Deficit Goal: Patient/patient community 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 demonstrates understanding of disease process, treatment plan, medications, and discharge instructions Description: INTERVENTIONS 1. Complete learning assessment and assess knowledge base 2. Provide teaching at level of understanding 3. Provide teaching via preferred learning method(s) Outcome: Progressing Note: Evaluation of progress towards goal: Patient educated on diabetic mgmt, glucose monitoring, and insulin administration. Pt also educated on diet and lifestyle modifications. Verbalized understanding and demonstrated skills back. Problem: Discharge Planning Goal: Discharge to post-acute care, other facility, or home with appropriate resources Description: Patient's goal is: INTERVENTIONS 1. Conduct assessment to determine patient/family and health care team treatment goals, and need for post-acute services based on payer coverage, community resources, and patient preferences, and barriers to discharge 2. Coordinate with Social work, Care Navigation, and Utilization Review to arrange appropriate level of services according to patient's needs based on patient preference and payer coverage in collaboration with the physician and health care team 3. Address psychosocial, clinical, and financial barriers to discharge as identified in assessment in conjunction with the patient/family and health care team 4. Consult appropriate ancillary services (i.e.. PT/OT/ST, etc) as needed 5. Communicate with and update the patient/family, physician, and health care team regarding progress on the discharge plan 6. Identify discharge learning needs (meds, wound care, etc). 7. Arrange for needed discharge transportation as appropriate Outcome: Progressing Note: Evaluation of progress towards goal: Patient is expected to discharge back to group apartment complex in care of staff, pt qualifies to be discharged on home O2 and is awaiting that to be arranged. [facility] 12-21-2023 History and physical note Images from the original note were not included. [facility] Hospital Medicine History & Physical Patient: Carissa Santos Date of : 1980 Room: [facility] PCP: DIAZ DALTON MD Admission date: 12/20/2023 3:52 PM Encounter date: 12/21/23 SUBJECTIVE Carissa Santos is a 43 y.o. female who presents with reports of shortness of breath. This has been going on for a week and a half. Seems to be mostly exertional. She relates moving laundry from the washer to the dryer or walking from her chair to the bathroom makes her short of breath. She recovers with rest. Denies any chest pain. No fever or chills. No cough. No dizziness or lightheadedness. No nausea, vomiting or diaphoresis. Denies history of asthma or copd. She does not smoke. Patient has history of hypertension high cholesterol diabetes. No personal history of coronary artery disease. She does relate a history of coronary artery disease in mom who reportedly had heart attack. Patient does relate a remote history of DVT and she was on blood thinners for period of time but could not give me any more specifics regarding this. She has not currently on blood thinners. No recent surgeries or travel. She takes no control. No personal history of cancer. ER Course: CBC within normal limits. CMP showed a hyperglycemia with a glucose of 928, pseudo hyponatremia with sodium of 123. Started fluids and will administer insulin. Bedside fingertip confirms glucose greater than 500. Patient's initial troponin D-dimer also negative. BNP is negative. Chest x-ray interpreted by radiology shows no acute process. Interestingly patient's urine is positive for nitrites also spilling glucose. Repeat glucose is still >500. I added on ketones. Bicarb is normal and normal anion gap. She is not vomiting or ill appearing. She is agreeable to admission to get her sugar under control. I updated her on her other negative test results. Added on ketones. Urine dip shows nitrites and glucose. Sent for culture and started on rocephin Chief Complaint Patient presents with Shortness of Breath Allergies: Sulfamethoxazole-trimethoprim Prior to Admission medications Medication Sig Start [...] total) under the skin in the morning. Yes Not In System Ref Prov lamoTRIgine (LaMICtal) 200 mg tablet Take 1 tablet (200 mg total) by mouth in the morning. Indications: bipolar depression. Yes Not In System Ref Prov lisinopriL (PRINIVIL,ZESTRIL) 2.5 mg tablet Take 1 tablet (2.5 mg total) by mouth in the morning. 07/13/23 Yes Katelyn Recio MD pantoprazole (PROTONIX) 40 mg EC tablet Take [...] morning. Yes Not In System Ref Prov Past Medical History: Patient has a past medical history of Anxiety, Deep vein thrombosis ([facility]), Dental disease, Depression, Diabetes mellitus type I ([facility]), Elevated cholesterol, GERD (gastroesophageal reflux disease), Hyperlipidemia, Hypertension, Lymphadenopathy (2023), MR (mental retardation), Obesity, Panic disorder, and Visual impairment. Past Surgical History: Patient has a past surgical history that includes Cholecystectomy; Tonsillectomy; Tubal ligation (Bilateral, 2017); Colonoscopy (2021); and Flexible bronchoscopy w/ upper endoscopy (N/A, 11/22/2023). Family History: Patient's family history includes Cancer in her father; Diabetes in her mother. Social History: Patient reports that she has never smoked. She has never used smokeless tobacco. She reports current alcohol use. She reports that she does not use drugs. Review of Systems Review of Systems Constitutional: Negative for activity change, appetite change, chills, diaphoresis, fatigue and fever. HENT: Negative for tinnitus and trouble swallowing. Respiratory: Positive for shortness of breath (Exertional). Negative for cough, chest tightness and wheezing. Cardiovascular: Negative for chest pain, palpitations and leg swelling. Gastrointestinal: Negative for abdominal pain, diarrhea, nausea and vomiting. Genitourinary: Negative for difficulty urinating. Musculoskeletal: Negative for gait problem. Skin: Negative for rash. Neurological: Negative for dizziness, syncope, speech difficulty, weakness, light-headedness, numbness and headaches. Psychiatric/Behavioral: Negative for sleep disturbance. OBJECTIVE BP 120/78 Pulse 79 Temp 36.9 C (98.4 F) (Oral) Resp 18 Ht 154.9 cm (5' 0.98 ) Wt 101.4 kg (223 lb 10.2 oz) SpO2 96% BMI 42.28 kg/m Intake/Output Summary (Last 24 hours) at 12/21/2023 0952 Last data filed at 12/21/2023 0400 Gross per 24 hour Intake 1735.49 ml Output 10 ml Net 1725.49 ml Physical Exam Physical Exam Vitals and nursing note reviewed. Constitutional: General: She is not in acute distress. Appearance: She is obese. HENT: Head: Normocephalic and atraumatic. Right Ear: External ear normal. Left Ear: External ear normal. Nose: Nose normal. Mouth/Throat: Mouth: Mucous membranes are moist. Pharynx: Oropharynx is clear. Eyes: General: Right eye: Discharge present. Pupils: Pupils are equal, round, and reactive to light. Neck: Vascular: No carotid bruit or JVD. Cardiovascular: Rate and Rhythm: Normal rate and regular rhythm. Pulses: Normal pulses. Pulmonary: Effort: Pulmonary effort is normal. Breath sounds: Normal breath sounds. Comments: Oxygen at 2 L per nasal cannula Abdominal: General: Bowel sounds are normal. Palpations: Abdomen is soft. Tenderness: There is no abdominal tenderness. There is no right CVA tenderness or left CVA tenderness. Musculoskeletal: Cervical back: Normal range of motion. Right lower leg: No edema. Left lower leg: No edema. Skin: General: Skin is warm and dry. Capillary Refill: Capillary refill takes less than 2 seconds. Neurological: General: No focal deficit present. Mental Status: She is alert and oriented to person, place, and time. Psychiatric: Mood and Affect: Mood normal. Behavior: Behavior normal. Thought Content: Thought content normal. Judgment: Judgment normal. Medications Scheduled: atorvastatin, 40 mg, oral, Nightly buPROPion XL, 300 mg, oral, Daily cefTRIAXone (ROCEPHIN) IV, 1,000 mg, intravenous, Q24H cholecalciferol (vitamin D3), 400 Units, oral, Daily enoxaparin (LOVENOX) injection, 40 mg, subcutaneous, Q12H insulin glargine, 15 Units, subcutaneous, Daily insulin lispro, 2-10 Units, subcutaneous, TID with meals insulin lispro, 2-8 Units, subcutaneous, Nightly lamoTRIgine, 200 mg, oral, Daily lisinopriL, 2.5 mg, oral, Daily pantoprazole, 40 mg, oral, QAM AC pioglitazone, 45 mg, oral, Daily prazosin, 2 mg, oral, Nightly sertraline, 100 mg, oral, Daily Infusions: dextrose 5 % in water, 100 mL/hr sodium chloride 0.9 %, 20 mL/hr sodium chloride 0.9 %, 100 mL/hr, Last Rate: 100 mL/hr (12/21/23 0106) As Needed: acetaminophen alum-mag hydroxide-simeth dextrose dextrose 5 % in water dextrose 50 % in water (D50W) glucagon (human recombinant) ipratropium-albuteroL magnesium sulfate magnesium sulfate ondansetron potassium chloride OR potassium chloride sodium chloride sodium chloride sodium chloride 0.9 % Allergies: Sulfamethoxazole-trimethoprim Labs Recent Results (from the past 24 hour(s)) CBC auto differential Collection Time: 12/20/23 5:09 PM Result Value Ref Range White Blood Cells 6.1 4.0 - 11.0 X10E9/L RBC count 4.60 3.80 - 5.20 X10E12/L Hemoglobin 13.2 11.7 - 15.5 g/dL Hematocrit 40.4 35 - 47 % MCV 88 80 - 100 fL MCH 28.8 27 - 34 pg MCHC 32.8 32 - 36 g/dL RDW 13.6 11.5 - 15.0 % Platelets 227 150 - 450 X10E9/L MPV 7.6 7 - 12 fL % neutrophils 54.5 % % lymphocytes 37.6 % % monocytes 6.3 % % eosinophils 1.1 % % Basophils 0.5 % Neutrophils Absolute (A) 3.3 1.5 - 6.6 X10E9/L Lymphocytes Absolute 2.3 1.0 - 3.5 X10E9/L Monocytes Absolute 0.4 0 - 0.9 X10E9/L Eosinophils Absolute 0.1 0.0 - 0.4 X10E9/L Basophils Absolute 0.0 0.0 - 0.2 X10E9/L Comprehensive metabolic panel Collection Time: 12/20/23 5:09 PM Result Value Ref Range Sodium 123 (L) 134 - 146 mmol/L Potassium, Bld 4.7 3.5 - 5.0 mmol/L Chloride 87 (L) 98 - 109 mmol/L CO2 24 22 - 32 mmol/L Anion gap 12 5 - 15 mmol/L BUN 31 (H) 5 - 23 mg/dL Creatinine 1.17 (H) 0.40 - 1.00 mg/dL Glucose 928 (HH) 65 - 99 mg/dL Calcium 9.0 8.5 - 10.5 mg/dL Total Protein 7.5 6.0 - 8.0 g/dL Albumin 3.4 3.2 - 5.3 g/dL Alkaline Phosphatase 91 39 - 130 U/L AST 17 0 - 41 U/L ALT 23 0 - 31 U/L Total bilirubin 0.4 0.3 - 1.2 mg/dL eGFR (CKD-EPI)non-race dependent 59 (L) >59 ml/min/1.73sq.m Troponin I, High Sensitivity Collection Time: 12/20/23 5:09 PM Result Value Ref Range Troponin I, High Sensitivity <2 <16 ng/L D-Dimer Collection Time: 12/20/23 5:09 PM Result Value Ref Range D-dimer <150 <255 ng/mL DDU B-type natriuretic peptide Collection Time: 12/20/23 5:09 PM Result Value Ref Range BNP 10 <100.0 pg/mL POCT Nursing Urine Macroscopic UA Collection Time: 12/20/23 5:17 PM Result Value Ref Range Specific gravity SMITHA <=1.005 1.003 - 1.035 Leukocyte esterase SMITHA Negative Negative^Negative Nitrite SMITHA Positive (A) Negative^Negative Ph 5.0 5.0 - 8.5 Protein SMITHA Negative Negative^Negative mg/dL Urine glucose SMITHA >=1000 (A) Negative^Negative mg/dL Ketones SMITHA Negative Negative^Negative mg/dL Urobilinogen SMITHA 0.2 <1.1 eu/dL Bilirubin SMITHA Negative Negative^Negative Hemoglobin SMITHA Negative Negative^Negative Bedside Glucose *Place/Obtain serum glucose if >500(>600 MRH) per glucometer. Collection Time: 12/20/23 5:57 PM Result Value Ref Range Bedside glucose >500 (HH) 65 - 99 mg/dL Troponin I, High Sensitivity 1 Hour Collection Time: 12/20/23 6:13 PM Result Value Ref Range 1 Hour Trop I, High Sensitivity 3 <16 ng/L Acetone, (BetaHydroxybutyrate, Ketone) quantitative, serum Collection Time: 12/20/23 6:13 PM Result Value Ref Range Beta hydroxy buterate 0.14 0.02 - 0.27 mmol/L Bedside Glucose *Place/Obtain serum glucose if >500(>600 MRH) per glucometer. Collection Time: 12/20/23 7:25 PM Result Value Ref Range Bedside glucose >500 (HH) 65 - 99 mg/dL Bedside Glucose *Place/Obtain serum glucose if >500(>600 MRH) per glucometer. Collection Time: 12/20/23 8:19 PM Result Value Ref Range Bedside glucose >500 (HH) 65 - 99 mg/dL Bedside Glucose *Place/Obtain serum glucose if >500(>600 MRH) per glucometer. Collection Time: 12/20/23 10:44 PM Result Value Ref Range Bedside glucose 350 (H) 65 - 99 mg/dL Basic Metabolic Panel Collection Time: 12/21/23 5:33 AM Result Value Ref Range Sodium 134 134 - 146 mmol/L Potassium, Bld 4.2 3.5 - 5.0 mmol/L Chloride 96 (L) 98 - 109 mmol/L CO2 29 22 - 32 mmol/L Anion gap 9 5 - 15 mmol/L BUN 27 (H) 5 - 23 mg/dL Creatinine 0.80 0.40 - 1.00 mg/dL Glucose 340 (H) 65 - 99 mg/dL Calcium 8.7 8.5 - 10.5 mg/dL eGFR (CKD-EPI)non-race dependent >90 >59 ml/min/1.73sq.m Magnesium Collection Time: 12/21/23 5:33 AM Result Value Ref Range Magnesium 1.9 1.8 - 2.6 mg/dL CBC without diff Collection Time: 12/21/23 5:33 AM Result Value Ref Range White Blood Cells 5.0 4.0 - 11.0 X10E9/L RBC count 4.33 3.80 - 5.20 X10E12/L Hemoglobin 12.6 11.7 - 15.5 g/dL Hematocrit 36.6 35 - 47 % MCV 85 80 - 100 fL MCH 29.0 27 - 34 pg MCHC 34.3 32 - 36 g/dL RDW 13.2 11.5 - 15.0 % Platelets 213 150 - 450 X10E9/L MPV 7.3 7 - 12 fL Glucose random or fasting Collection Time: 12/21/23 8:54 AM Result Value Ref Range Glucose 409 (HH) 65 - 99 mg/dL Radiology X-ray chest 1 view Result Date: 12/20/2023 Narrative: Single view chest History:sob Difficulty breathing, shortness of breath Comparison: 06/04/2023 Findings: Single portable view of the chest. Stable cardia mediastinal silhouette. No focal opacity, effusion or pneumothorax. Impression: No evidence of acute cardiac pulmonary process. Finalized by Aliya Gan MD on 12/20/2023 5:35 PM Bronchoscopy Report Result Date: 11/22/2023 Narrative: This order has been auto-finalized for image and report archival in PACs. *For full report details, please reach out to your physician. This image is visible to you in MyChart.* HOSPITAL PROBLEM LIST Principal Problem: Type 2 diabetes mellitus with hyperglycemia, with long-term current use of insulin ([facility]) Active Problems: Hyperglycemia Obstructive sleep apnea syndrome Severe obesity (BMI >= 40) ([facility]) Hyperlipidemia associated with type 2 diabetes mellitus ([facility]) Acute cystitis without hematuria ASSESSMENT & PLAN Dm 2: Significant hyperglycemia on admission. Continue home Lantus at 15 units daily. Monitor blood glucose a.c. and HS cover sliding scale insulin. Obstructive sleep apnea: States does not have machine at home. Stasis not use oxygen at nighttime. Refused as needed for CPAP here. BMI: Nutrition consult. Possible hypoventilation syndrome causing hypoxia. Hyperlipidemia: Continue home statin. Acute cystitis: Continue Rocephin. Urine culture pending. Admission orders placed and home medications reconciled. DVT prophylaxis: EPC's and Lovenox. GI prophylaxis. Protonix PT/OT to evaluate and treat. DC planning: Discharge home in 1-2 days. Eddie Zurita, [employer], 12/21/2023 9:52 AM [facility] Medicine - [facility] Hospitalists 7AM-7PM: Message rounding MARY JO in [employer] or page through [employer]. 7PM-7AM: Page on-call MARY JO through our answering service, . Physician Attestation: I have reviewed the above note authored by the Advance Practice Provider (MARY JO) including history, review of systems, physical examination, medical decision making and agree with the assessment & plan. I have personally performed a face to face diagnostic evaluation on this patient. I have reviewed all laboratory findings and imaging reports/films. I have independently evaluated the patient and repeated timmons portions of the physical exam. I agree with the MARY JO plan as above, unless otherwise noted. EZEQUIEL GRAFF MD [facility] SDI [facility] 12-21-2023 History and physical note Images from the original note were not included. [facility] History & Physical Patient: Carissa Santos Date of : 1980 Room: [facility] [place] PCP: DIAZ DALTON MD Admission date: 12/20/2023 3:52 PM Encounter date: 12/21/23 SUBJECTIVE Carissa Santos is a 43 y.o. female who presents with reports of shortness of breath. This has been going on for a week and a half. Seems to be mostly exertional. She relates moving laundry from the washer to the dryer or walking from her chair to the bathroom makes her short of breath. She recovers with rest. Denies any chest pain. No fever or chills. No cough. No dizziness or lightheadedness. No nausea, vomiting or diaphoresis. Denies history of asthma or copd. She does not smoke. Patient has history of hypertension high cholesterol diabetes. No personal history of coronary artery disease. She does relate a history of coronary artery disease in mom who reportedly had heart attack. Patient does relate a remote history of DVT and she was on blood thinners for period of time but could not give me any more specifics regarding this. She has not currently on blood thinners. No recent surgeries or travel. She takes no control. No personal history of cancer. ER Course: CBC within normal limits. CMP showed a hyperglycemia with a glucose of 928, pseudo hyponatremia with sodium of 123. Started fluids and will administer insulin. Bedside fingertip confirms glucose greater than 500. Patient's initial troponin D-dimer also negative. BNP is negative. Chest x-ray interpreted by radiology shows no acute process. Interestingly patient's urine is positive for nitrites also spilling glucose. Repeat glucose is still >500. I added on ketones. Bicarb is normal and normal anion gap. She is not vomiting or ill appearing. She is agreeable to admission to get her sugar under control. I updated her on her other negative test results. Added on ketones. Urine dip shows nitrites and glucose. Sent for culture and started on rocephin Chief Complaint Patient presents with Shortness of Breath Allergies: Sulfamethoxazole-trimethoprim Prior to Admission medications Medication Sig Start [...] total) under the skin in the morning. Yes Not In System Ref Prov lamoTRIgine (LaMICtal) 200 mg tablet Take 1 tablet (200 mg total) by mouth in the morning. Indications: bipolar depression. Yes Not In System Ref Prov lisinopriL (PRINIVIL,ZESTRIL) 2.5 mg tablet Take 1 tablet (2.5 mg total) by mouth in the morning. 11/9/23 Yes Katelyn Recio MD pantoprazole (PROTONIX) 40 mg EC tablet Take [...] morning. Yes Not In System Ref Prov Past Medical History: Patient has a past medical history of Anxiety, Deep vein thrombosis ([facility]), Dental disease, Depression, Diabetes mellitus type I ([facility]), Elevated cholesterol, GERD (gastroesophageal reflux disease), Hyperlipidemia, Hypertension, Lymphadenopathy (2023), MR (mental retardation), Obesity, Panic disorder, and Visual impairment. Past Surgical History: Patient has a past surgical history that includes Cholecystectomy; Tonsillectomy; Tubal ligation (Bilateral, 2017); Colonoscopy (2021); and Flexible bronchoscopy w/ upper endoscopy (N/A, 11/22/2023). Family History: Patient's family history includes Cancer in her father; Diabetes in her mother. Social History: Patient reports that she has never smoked. She has never used smokeless tobacco. She reports current alcohol use. She reports that she does not use drugs. Review of Systems Review of Systems Constitutional: Negative for activity change, appetite change, chills, diaphoresis, fatigue and fever. HENT: Negative for tinnitus and trouble swallowing. Respiratory: Positive for shortness of breath (Exertional). Negative for cough, chest tightness and wheezing. Cardiovascular: Negative for chest pain, palpitations and leg swelling. Gastrointestinal: Negative for abdominal pain, diarrhea, nausea and vomiting. Genitourinary: Negative for difficulty urinating. Musculoskeletal: Negative for gait problem. Skin: Negative for rash. Neurological: Negative for dizziness, syncope, speech difficulty, weakness, light-headedness, numbness and headaches. Psychiatric/Behavioral: Negative for sleep disturbance. OBJECTIVE BP 120/78 Pulse 79 Temp 36.9 C (98.4 F) (Oral) Resp 18 Ht 154.9 cm (5' 0.98 ) Wt 101.4 kg (223 lb 10.2 oz) SpO2 96% BMI 42.28 kg/m Intake/Output Summary (Last 24 hours) at 12/21/2023 0952 Last data filed at 12/21/2023 0400 Gross per 24 hour Intake 1735.49 ml Output 10 ml Net 1725.49 ml Physical Exam Physical Exam Vitals and nursing note reviewed. Constitutional: General: She is not in acute distress. Appearance: She is obese. HENT: Head: Normocephalic and atraumatic. Right Ear: External ear normal. Left Ear: External ear normal. Nose: Nose normal. Mouth/Throat: Mouth: Mucous membranes are moist. Pharynx: Oropharynx is clear. Eyes: General: Right eye: Discharge present. Pupils: Pupils are equal, round, and reactive to light. Neck: Vascular: No carotid bruit or JVD. Cardiovascular: Rate and Rhythm: Normal rate and regular rhythm. Pulses: Normal pulses. Pulmonary: Effort: Pulmonary effort is normal. Breath sounds: Normal breath sounds. Comments: Oxygen at 2 L per nasal cannula Abdominal: General: Bowel sounds are normal. Palpations: Abdomen is soft. Tenderness: There is no abdominal tenderness. There is no right CVA tenderness or left CVA tenderness. Musculoskeletal: Cervical back: Normal range of motion. Right lower leg: No edema. Left lower leg: No edema. Skin: General: Skin is warm and dry. Capillary Refill: Capillary refill takes less than 2 seconds. Neurological: General: No focal deficit present. Mental Status: She is alert and oriented to person, place, and time. Psychiatric: Mood and Affect: Mood normal. Behavior: Behavior normal. Thought Content: Thought content normal. Judgment: Judgment normal. Medications Scheduled: atorvastatin, 40 mg, oral, Nightly buPROPion XL, 300 mg, oral, Daily cefTRIAXone (ROCEPHIN) IV, 1,000 mg, intravenous, Q24H cholecalciferol (vitamin D3), 400 Units, oral, Daily enoxaparin (LOVENOX) injection, 40 mg, subcutaneous, Q12H insulin glargine, 15 Units, subcutaneous, Daily insulin lispro, 2-10 Units, subcutaneous, TID with meals insulin lispro, 2-8 Units, subcutaneous, Nightly lamoTRIgine, 200 mg, oral, Daily lisinopriL, 2.5 mg, oral, Daily pantoprazole, 40 mg, oral, QAM AC pioglitazone, 45 mg, oral, Daily prazosin, 2 mg, oral, Nightly sertraline, 100 mg, oral, Daily Infusions: dextrose 5 % in water, 100 mL/hr sodium chloride 0.9 %, 20 mL/hr sodium chloride 0.9 %, 100 mL/hr, Last Rate: 100 mL/hr (12/21/23 0106) As Needed: acetaminophen alum-mag hydroxide-simeth dextrose dextrose 5 % in water dextrose 50 % in water (D50W) glucagon (human recombinant) ipratropium-albuteroL magnesium sulfate magnesium sulfate ondansetron potassium chloride OR potassium chloride sodium chloride sodium chloride sodium chloride 0.9 % Allergies: Sulfamethoxazole-trimethoprim Labs Recent Results (from the past 24 hour(s)) CBC auto differential Collection Time: 12/20/23 5:09 PM Result Value Ref Range White Blood Cells 6.1 4.0 - 11.0 X10E9/L RBC count 4.60 3.80 - 5.20 X10E12/L Hemoglobin 13.2 11.7 - 15.5 g/dL Hematocrit 40.4 35 - 47 % MCV 88 80 - 100 fL MCH 28.8 27 - 34 pg MCHC 32.8 32 - 36 g/dL RDW 13.6 11.5 - 15.0 % Platelets 227 150 - 450 X10E9/L MPV 7.6 7 - 12 fL % neutrophils 54.5 % % lymphocytes 37.6 % % monocytes 6.3 % % eosinophils 1.1 % % Basophils 0.5 % Neutrophils Absolute (A) 3.3 1.5 - 6.6 X10E9/L Lymphocytes Absolute 2.3 1.0 - 3.5 X10E9/L Monocytes Absolute 0.4 0 - 0.9 X10E9/L Eosinophils Absolute 0.1 0.0 - 0.4 X10E9/L Basophils Absolute 0.0 0.0 - 0.2 X10E9/L Comprehensive metabolic panel Collection Time: 12/20/23 5:09 PM Result Value Ref Range Sodium 123 (L) 134 - 146 mmol/L Potassium, Bld 4.7 3.5 - 5.0 mmol/L Chloride 87 (L) 98 - 109 mmol/L CO2 24 22 - 32 mmol/L Anion gap 12 5 - 15 mmol/L BUN 31 (H) 5 - 23 mg/dL Creatinine 1.17 (H) 0.40 - 1.00 mg/dL Glucose 928 (HH) 65 - 99 mg/dL Calcium 9.0 8.5 - 10.5 mg/dL Total Protein 7.5 6.0 - 8.0 g/dL Albumin 3.4 3.2 - 5.3 g/dL Alkaline Phosphatase 91 39 - 130 U/L AST 17 0 - 41 U/L ALT 23 0 - 31 U/L Total bilirubin 0.4 0.3 - 1.2 mg/dL eGFR (CKD-EPI)non-race dependent 59 (L) >59 ml/min/1.73sq.m Troponin I, High Sensitivity Collection Time: 12/20/23 5:09 PM Result Value Ref Range Troponin I, High Sensitivity <2 <16 ng/L D-Dimer Collection Time: 12/20/23 5:09 PM Result Value Ref Range D-dimer <150 <255 ng/mL DDU B-type natriuretic peptide Collection Time: 12/20/23 5:09 PM Result Value Ref Range BNP 10 <100.0 pg/mL POCT Nursing Urine Macroscopic UA Collection Time: 12/20/23 5:17 PM Result Value Ref Range Specific gravity SMITHA <=1.005 1.003 - 1.035 Leukocyte esterase SMITHA Negative Negative^Negative Nitrite SMITHA Positive (A) Negative^Negative Ph 5.0 5.0 - 8.5 Protein SMITHA Negative Negative^Negative mg/dL Urine glucose SIMTHA >=1000 (A) Negative^Negative mg/dL Ketones SMITHA Negative Negative^Negative mg/dL Urobilinogen SMITHA 0.2 <1.1 eu/dL Bilirubin SMITHA Negative Negative^Negative Hemoglobin SMITHA Negative Negative^Negative Bedside Glucose *Place/Obtain serum glucose if >500(>600 MRH) per glucometer. Collection Time: 12/20/23 5:57 PM Result Value Ref Range Bedside glucose >500 (HH) 65 - 99 mg/dL Troponin I, High Sensitivity 1 Hour Collection Time: 12/20/23 6:13 PM Result Value Ref Range 1 Hour Trop I, High Sensitivity 3 <16 ng/L Acetone, (BetaHydroxybutyrate, Ketone) quantitative, serum Collection Time: 12/20/23 6:13 PM Result Value Ref Range Beta hydroxy buterate 0.14 0.02 - 0.27 mmol/L Bedside Glucose *Place/Obtain serum glucose if >500(>600 MRH) per glucometer. Collection Time: 12/20/23 7:25 PM Result Value Ref Range Bedside glucose >500 (HH) 65 - 99 mg/dL Bedside Glucose *Place/Obtain serum glucose if >500(>600 MRH) per glucometer. Collection Time: 12/20/23 8:19 PM Result Value Ref Range Bedside glucose >500 (HH) 65 - 99 mg/dL Bedside Glucose *Place/Obtain serum glucose if >500(>600 MRH) per glucometer. Collection Time: 12/20/23 10:44 PM Result Value Ref Range Bedside glucose 350 (H) 65 - 99 mg/dL Basic Metabolic Panel Collection Time: 12/21/23 5:33 AM Result Value Ref Range Sodium 134 134 - 146 mmol/L Potassium, Bld 4.2 3.5 - 5.0 mmol/L Chloride 96 (L) 98 - 109 mmol/L CO2 29 22 - 32 mmol/L Anion gap 9 5 - 15 mmol/L BUN 27 (H) 5 - 23 mg/dL Creatinine 0.80 0.40 - 1.00 mg/dL Glucose 340 (H) 65 - 99 mg/dL Calcium 8.7 8.5 - 10.5 mg/dL eGFR (CKD-EPI)non-race dependent >90 >59 ml/min/1.73sq.m Magnesium Collection Time: 12/21/23 5:33 AM Result Value Ref Range Magnesium 1.9 1.8 - 2.6 mg/dL CBC without diff Collection Time: 12/21/23 5:33 AM Result Value Ref Range White Blood Cells 5.0 4.0 - 11.0 X10E9/L RBC count 4.33 3.80 - 5.20 X10E12/L Hemoglobin 12.6 11.7 - 15.5 g/dL Hematocrit 36.6 35 - 47 % MCV 85 80 - 100 fL MCH 29.0 27 - 34 pg MCHC 34.3 32 - 36 g/dL RDW 13.2 11.5 - 15.0 % Platelets 213 150 - 450 X10E9/L MPV 7.3 7 - 12 fL Glucose random or fasting Collection Time: 12/21/23 8:54 AM Result Value Ref Range Glucose 409 (HH) 65 - 99 mg/dL Radiology X-ray chest 1 view Result Date: 12/20/2023 Narrative: Single view chest History:sob Difficulty breathing, shortness of breath Comparison: 06/04/2023 Findings: Single portable view of the chest. Stable cardia mediastinal silhouette. No focal opacity, effusion or pneumothorax. Impression: No evidence of acute cardiac pulmonary process. Finalized by Aliya Gan MD on 12/20/2023 5:35 PM Bronchoscopy Report Result Date: 11/22/2023 Narrative: This order has been auto-finalized for image and report archival in PACs. *For full report details, please reach out to your physician. This image is visible to you in MyChart.* HOSPITAL PROBLEM LIST Principal Problem: Type 2 diabetes mellitus with hyperglycemia, with long-term current use of insulin ([facility]) Active Problems: Hyperglycemia Obstructive sleep apnea syndrome Severe obesity (BMI >= 40) ([facility]) Hyperlipidemia associated with type 2 diabetes mellitus ([facility]) Acute cystitis without hematuria ASSESSMENT & PLAN Dm 2: Significant hyperglycemia on admission. Continue home Lantus at 15 units daily. Monitor blood glucose a.c. and HS cover sliding scale insulin. Obstructive sleep apnea: States does not have machine at home. Stasis not use oxygen at nighttime. Refused as needed for CPAP here. BMI: Nutrition consult. Possible hypoventilation syndrome causing hypoxia. Hyperlipidemia: Continue home statin. Acute cystitis: Continue Rocephin. Urine culture pending. Admission orders placed and home medications reconciled. DVT prophylaxis: EPC's and Lovenox. GI prophylaxis. Protonix PT/OT to evaluate and treat. DC planning: Discharge home in 1-2 days. Eddie Zurita APRN-LUCIANO, 12/21/2023 9:52 AM [facility] Hospitalists 7AM-7PM: Message rounding MARY JO in [employer] or page through [employer]. 7PM-7AM: Page on-call MARY JO through our [employer] service, . Physician Attestation: I have reviewed the above note authored by the Advance Practice Provider (MARY JO) including history, review of systems, physical examination, medical decision making and agree with the assessment & plan. I have personally performed a face to face diagnostic evaluation on this patient. I have reviewed all laboratory findings and imaging reports/films. I have independently evaluated the patient and repeated timmons portions of the physical exam. I agree with the MARY JO plan as above, unless otherwise noted. EZEQUIEL GRAFF MD [facility] Plan of care note Problem: Safety Goal: Patient will be injury free during hospitalization Description: INTERVENTIONS: 1. Assess patient's risk for falls and implement fall prevention plan of care per policy 2. Provide and maintain a safe environment 3. Proper use of double Identifiers 4. Medication administration using the 5 rights 5. Hand hygiene 6. Specimens are labeled at the bedside 7. Instruct patient/ patient community 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 about use of safety devices 8. Include patient/ patient community 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 in decisions related to safety Outcome: Progressing Note: Evaluation of progress towards goal: Pt remains free from falls or accidental injury during stay. Fall prevention measures in place. Hourly rounding per RN and NA maintained. Problem: Knowledge Deficit Goal: Patient/patient community 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 demonstrates understanding of disease process, treatment plan, medications, and discharge instructions Description: INTERVENTIONS 1. Complete learning assessment and assess knowledge base 2. Provide teaching at level of understanding 3. Provide teaching via preferred learning method(s) Outcome: Progressing Note: Evaluation of progress towards goal: Patient has intermittent confusion. Answered questions when asked. Reorientated as needed. Continue to monitor and assess for appropiateness to involve patient in care. [facility] 12-20-2023 Physician Emergency department Note Images from the original note were not included. History Chief Complaint Patient presents with Shortness of Breath HPI Patient here for reports of shortness of breath. This has been going on for a week and a half. Seems to be mostly exertional. She relates moving laundry from the washer to the dryer or walking from her chair to the bathroom makes her short of breath. She recovers with rest. Denies any chest pain. No fever or chills. No cough. No dizziness or lightheadedness. No nausea, vomiting or diaphoresis. Denies history of asthma or copd. She does not smoke Patient has history of hypertension high cholesterol diabetes. No personal history of coronary artery disease. She does relate a history of coronary artery disease in mom who reportedly had heart attack. Patient does relate a remote history of DVT and she was on blood thinners for period of time but could not give me any more specifics regarding this. She has not currently on blood thinners. No recent surgeries or travel. She takes no control. No personal history of cancer. Problem List Items Addressed This Visit None Past Medical History: Diagnosis Date Anxiety Deep vein thrombosis (CMS-HCC) Dental disease no teeth Depression Diabetes mellitus type I (CMS-HCC) Elevated cholesterol GERD (gastroesophageal reflux disease) Hyperlipidemia Hypertension Lymphadenopathy 2023 MR (mental retardation) Obesity Panic disorder Visual impairment Past Surgical History: Procedure Laterality Date CHOLECYSTECTOMY COLONOSCOPY 2021 ENDOBRONCHIAL ULTRASOUND BRONCHOSCOPY N/A 11/22/2023 Performed by Libby Finley MD at [facility] TONSILLECTOMY TUBAL LIGATION Bilateral 2018 Travel Screening Question Response Have you been in contact with someone who was sick? No / Unsure Do you have any of the following new or worsening symptoms? Shortness of breath Have you traveled internationally or domestically in the last month? No Travel History Travel since 11/19/23 No documented travel since 11/19/23 Family History Problem Relation Age of Onset Diabetes Mother Cancer Father Anesthesia problems Neg Hx Social History Substance and Sexual Activity Drug Use Never Social History Tobacco Use Smoking status: Never Smokeless tobacco: Never Vaping Use Vaping status: Never Used Substance Use Topics Alcohol use: Yes Comment: occasionally-once a month Drug use: Never Review of Systems Constitutional: Negative for chills and fever. Respiratory: Positive for shortness of breath. Negative for cough. Cardiovascular: Negative for chest pain/discomfort. Gastrointestinal: Negative for abdominal pain, diarrhea, nausea and vomiting. Musculoskeletal: Negative for arthralgias and myalgias. Neurological: Negative for dizziness, light-headedness and headaches. Physical Exam ED Triage Vitals Temp Heart Rate Resp BP SpO2 12/20/23 1557 12/20/23 1554 12/20/23 1554 12/20/23 1554 12/20/23 1554 36.8 C (98.2 F) 89 24 141/77 94 % Temp Source Heart Rate Source Patient Position BP Location FiO2 (%) 12/20/23 1557 12/20/23 1554 -- 12/20/23 1554 -- Oral Pulse Ox Right arm Vitals: 12/20/23 1554 12/20/23 1557 BP: 141/77 Temp: 36.8 C (98.2 F) TempSrc: Oral Pulse: 89 Resp: 24 SpO2: 94% Height: 154.9 cm (5' 1 ) Weight: 103.9 kg (229 lb) Physical Exam Constitutional: General: She is not in acute distress. Appearance: She is well-developed. She is obese. HENT: Head: Normocephalic and atraumatic. Eyes: Pupils: Pupils are equal, round, and reactive to light. Neck: Trachea: No tracheal deviation. Cardiovascular: Rate and Rhythm: Normal rate and regular rhythm. Heart sounds: Normal heart sounds. Pulmonary: Effort: Pulmonary effort is normal. Breath sounds: Normal breath sounds. Abdominal: General: Bowel sounds are normal. There is no distension. Palpations: Abdomen is soft. Tenderness: There is no abdominal tenderness. Skin: General: Skin is warm and dry. Capillary Refill: Capillary refill takes less than 2 seconds. Neurological: Mental Status: She is alert and oriented to person, place, and time. Procedure Procedures Re-Evaluation Re-Evaluation ED Course ED Course as of 12/22/23 1044 MonDec 20, 2023 1622 Here for complaints of exertional shortness of breath for the last week and a half. No other symptoms. Differential diagnosis: ACS, pulmonary embolism, CHF, deconditioning [RK] 184 CBC within normal limits. CMP showed a hyperglycemia with a glucose of 928, pseudo hyponatremia with sodium of 123. Started fluids and will administer insulin. Bedside fingertip confirms glucose greater than 500. Patient's initial troponin D-dimer also negative. BNP is negative. Chest x-ray interpreted by radiology shows no acute process. Interestingly patient's urine is positive for nitrites also spilling glucose. [RK] 1931 Repeat glucose is still >500. I added on ketones. Bicarb is normal and normal anion gap. She is not vomiting or ill appearing. She is agreeable to admission to get her sugar under control. I updated her on her other negative test results. Added on ketones. Urine dip shows nitrites and glucose. Sent for culture and started on rocephin [RK] 193 Discussed with Erin CHAN for Dr Graff who agrees to admit to obs. She meets obs criteria [RK] ED Course User Index [RK] DUSTIN Mcneill Clinical Impressions as of 12/22/23 1044 Hyperglycemia Acute cystitis without hematuria Hypoxia MDM Medical Decision Making ----- I, Anamya Truex (scribe), documented on behalf of Dr. Kent. 7:16 PM Carissa Santos is a 43 y.o. female presenting to the ED for chief complaint of shortness of breath. Dr. Kent personally saw and evaluated the patient. Dr. Kent discussed the plan with the MARY JO/ Resident. Dr. Kent personally made/approved the management plan for this patient and takes responsibility for the patient management. Exam findings as follows: Constitutional: Awake and alert HENT: Normocephalic and atraumatic Eyes: Conjunctiva unremarkable Cardiovascular: Heart rate regular Pulmonary: Lungs clear, no respiratory distress Abdominal: Flat and non-distended Skin: Warm and dry Musculoskeletal: Moving all extremities spontaneously Differential Diagnosis: Dehydration vs Uncontrolled Diabetes ----- Amount and/or Complexity of Data Reviewed Labs: ordered. Radiology: ordered. ECG/medicine tests: ordered. Risk OTC drugs. Prescription drug management. Attestation Provider Statement Evaluation and management services were performed by the POLICY VALUE CALCULATOR/PA-C under my supervision/collaboration with my participation. I have reviewed all pertinent clinical information, including history, physical exam and plan. Provider Statement: By electronically signing this emergency patient record, the Emergency Physician/POLICY VALUE CALCULATOR/PA-C attests that all entries made into the electronic medical record by the scribe prior to the Physician/POLICY VALUE CALCULATOR/PA-C signature reflect an accurate accounting of the evaluation and care rendered by that Emergency Physician/POLICY VALUE CALCULATOR/PA-C. The Emergency Physician/POLICY VALUE CALCULATOR/PA-C assumes full responsibility for those entries. DUSTIN Mcneill 12/20/23 1623 Anamya Truex 12/20/231915 Anamya Truex 12/20/231922 DUSTIN Mcneill 12/20/231937 [facility] 12-20-2023 Emergency department Note Images from the original note were not included. History Chief Complaint Patient presents with Shortness of Breath HPI Patient here for reports of shortness of breath. This has been going on for a week and a half. Seems to be mostly exertional. She relates moving laundry from the washer to the dryer or walking from her chair to the bathroom makes her short of breath. She recovers with rest. Denies any chest pain. No fever or chills. No cough. No dizziness or lightheadedness. No nausea, vomiting or diaphoresis. Denies history of asthma or copd. She does not smoke Patient has history of hypertension high cholesterol diabetes. No personal history of coronary artery disease. She does relate a history of coronary artery disease in mom who reportedly had heart attack. Patient does relate a remote history of DVT and she was on blood thinners for period of time but could not give me any more specifics regarding this. She has not currently on blood thinners. No recent surgeries or travel. She takes no control. No personal history of cancer. Problem List Items Addressed This Visit None Past Medical History: Diagnosis Date Anxiety Deep vein thrombosis (CMS-HCC) Dental disease no teeth Depression Diabetes mellitus type I (CMS-HCC) Elevated cholesterol GERD (gastroesophageal reflux disease) Hyperlipidemia Hypertension Lymphadenopathy 2023 MR (mental retardation) Obesity Panic disorder Visual impairment Past Surgical History: Procedure Laterality Date CHOLECYSTECTOMY COLONOSCOPY 2021 ENDOBRONCHIAL ULTRASOUND BRONCHOSCOPY N/A 11/22/2023 Performed by Libby Finley MD at [facility] TONSILLECTOMY TUBAL LIGATION Bilateral 2018 Travel Screening Question Response Have you been in contact with someone who was sick? No / Unsure Do you have any of the following new or worsening symptoms? Shortness of breath Have you traveled internationally or domestically in the last month? No Travel History Travel since 11/19/23 No documented travel since 11/19/23 Family History Problem Relation Age of Onset Diabetes Mother Cancer Father Anesthesia problems Neg Hx Social History Substance and Sexual Activity Drug Use Never Social History Tobacco Use Smoking status: Never Smokeless tobacco: Never Vaping Use Vaping status: Never Used Substance Use Topics Alcohol use: Yes Comment: occasionally-once a month Drug use: Never Review of Systems Constitutional: Negative for chills and fever. Respiratory: Positive for shortness of breath. Negative for cough. Cardiovascular: Negative for chest pain/discomfort. Gastrointestinal: Negative for abdominal pain, diarrhea, nausea and vomiting. Musculoskeletal: Negative for arthralgias and myalgias. Neurological: Negative for dizziness, light-headedness and headaches. Physical Exam ED Triage Vitals Temp Heart Rate Resp BP SpO2 12/20/23 1557 12/20/23 1554 12/20/23 1554 12/20/23 1554 12/20/23 1554 36.8 C (98.2 F) 89 24 141/77 94 % Temp Source Heart Rate Source Patient Position BP Location FiO2 (%) 12/20/23 1557 12/20/23 1554 -- 12/20/23 1554 -- Oral Pulse Ox Right arm Vitals: 12/20/23 1554 12/20/23 1557 BP: 141/77 Temp: 36.8 C (98.2 F) TempSrc: Oral Pulse: 89 Resp: 24 SpO2: 94% Height: 154.9 cm (5' 1 ) Weight: 103.9 kg (229 lb) Physical Exam Constitutional: General: She is not in acute distress. Appearance: She is well-developed. She is obese. HENT: Head: Normocephalic and atraumatic. Eyes: Pupils: Pupils are equal, round, and reactive to light. Neck: Trachea: No tracheal deviation. Cardiovascular: Rate and Rhythm: Normal rate and regular rhythm. Heart sounds: Normal heart sounds. Pulmonary: Effort: Pulmonary effort is normal. Breath sounds: Normal breath sounds. Abdominal: General: Bowel sounds are normal. There is no distension. Palpations: Abdomen is soft. Tenderness: There is no abdominal tenderness. Skin: General: Skin is warm and dry. Capillary Refill: Capillary refill takes less than 2 seconds. Neurological: Mental Status: She is alert and oriented to person, place, and time. Procedure Procedures Re-Evaluation Re-Evaluation ED Course ED Course as of 12/22/23 1044 MonDec 20, 2023 1622 Here for complaints of exertional shortness of breath for the last week and a half. No other symptoms. Differential diagnosis: ACS, pulmonary embolism, CHF, deconditioning [RK] 1846 CBC within normal limits. CMP showed a hyperglycemia with a glucose of 928, pseudo hyponatremia with sodium of 123. Started fluids and will administer insulin. Bedside fingertip confirms glucose greater than 500. Patient's initial troponin D-dimer also negative. BNP is negative. Chest x-ray interpreted by radiology shows no acute process. Interestingly patient's urine is positive for nitrites also spilling glucose. [RK] 1931 Repeat glucose is still >500. I added on ketones. Bicarb is normal and normal anion gap. She is not vomiting or ill appearing. She is agreeable to admission to get her sugar under control. I updated her on her other negative test results. Added on ketones. Urine dip shows nitrites and glucose. Sent for culture and started on rocephin [RK] 1934 Discussed with Erin CHAN for Dr Graff who agrees to admit to obs. She meets obs criteria [RK] ED Course User Index [RK] DUSTIN Mcneill Clinical Impressions as of 12/22/23 1044 Hyperglycemia Acute cystitis without hematuria Hypoxia [facility] Medical Decision Making ----- I, Arturo Hadley (scribe), documented on behalf of Dr. Kent. 7:16 PM Carissa Santos is a 43 y.o. female presenting to the ED for chief complaint of shortness of breath. Dr. Kent personally saw and evaluated the patient. Dr. Kent discussed the plan with the MARY JO/ Resident. Dr. Kent personally made/approved the management plan for this patient and takes responsibility for the patient management. Exam findings as follows: Constitutional: Awake and alert HENT: Normocephalic and atraumatic Eyes: Conjunctiva unremarkable Cardiovascular: Heart rate regular Pulmonary: Lungs clear, no respiratory distress Abdominal: Flat and non-distended Skin: Warm and dry Musculoskeletal: Moving all extremities spontaneously Differential Diagnosis: Dehydration vs Uncontrolled Diabetes ----- Amount and/or Complexity of Data Reviewed Labs: ordered. Radiology: ordered. ECG/medicine tests: ordered. Risk OTC drugs. Prescription drug management. Attestation Provider Statement Evaluation and management services were performed by the POLICY VALUE CALCULATOR/PAKeshaC under my supervision/collaboration with my participation. I have reviewed all pertinent clinical information, including history, physical exam and plan. Provider Statement: By electronically signing this emergency patient record, the Emergency Physician/POLICY VALUE CALCULATOR/PA-C attests that all entries made into the electronic medical record by the scribe prior to the Physician/POLICY VALUE CALCULATOR/PA-C signature reflect an accurate accounting of the evaluation and care rendered by that Emergency Physician/POLICY VALUE CALCULATOR/PA-C. The Emergency Physician/POLICY VALUE CALCULATOR/PA-C assumes full responsibility for those entries. DUSTIN Mcneill 12/20/23 1623 Anamya Truex 12/20/23 1916 Anamya Truex 12/20/23 1923 DUSTIN Mcneill 12/20/23 1938 Pt been feeling sob for a week. Did not contact pcp documented in this encounter [facility] 12-20-2023 Emergency department Triage note Pt been feeling sob for a week. Did not contact pcp [facility] 11-28-2023 Miscellaneous Notes The results of the EBUS FNA was discussed with the patient. The FNA from R4 lymph node that is PET avid on the PET scan showed normal lymphocytes with no malignant cells. Flow cytometry demonstrates a mixed population of phenotypically unremarkable T-cells and polyclonal B-cells. Patient questions were answered. documented in this encounter [facility] 11-28-2023 Telephone encounter Note The results of the EBUS FNA was discussed with the patient. The FNA from R4 lymph node that is PET avid on the PET scan showed normal lymphocytes with no malignant cells. Flow cytometry demonstrates a mixed population of phenotypically unremarkable T-cells and polyclonal B-cells. Patient questions were answered. [facility] Work Phone: 11-23-2023 Miscellaneous Notes LM for patient to call our office back. Once she is cleared we can reschedule her surgery, please let patient know thanks Patient called back asking if she should reschedule surgery at this time or wait until after cardiac clearance, please advise. Call back # [phone] [facility] and cx sx Patient would like to cancel her surgery. Appointment for cardiac namrata isn't till May 14. LM with Dr Dalton office that patient needs Echo and clearance from PCP Also spoke with patient to contact PCP to follow up for clearance Jacqueline from [facility] pre surgery called regarding patient carissa santos 1980. she said looked at her Pat and said she needs to have an echo, that she needs evaluation for pulmonary hypertension. Please advise documented in this encounter [facility] 11-15-2023 Instructions Formatting of th is note might be different from the original. Your surgery/procedure is scheduled at [facility] on 11/22/23 at 1:30 pm Arrival Time 11:30 am [facility] Address: [address] [place] [address]. [place], [place] [address] Park in [address] Parking lot located on [facility]. Report to the Entrance B. Check in at the information desk the surgery. The waiting room located on the second floor. If you have any questions prior to surgery, please call Pre-Admission Clinic at [phone] between 7:30 am and 4:30 pm Monday through Monday. If you have questions the morning of surgery, please call the Pre-op Department at [phone]. Notify your SURGEON if you develop any [...] would like to schedule therapy at a [facility] facility, please call [phone] ([phone]). Do not use lotions, creams, powders, perfume, make up, cologne or after-shaves day of surgery. Remove ALL jewelry including wedding rings, body piercings,hair extensions that contain metal, nail [place], make-up, and contact lens. You may brush [...] RIGHTS AND RESPONSIBILITIES As a patient at [facility], you have the right to: Receive medical care and be informed of who is taking care of you Be treated with dignity and respect Have a family member/community 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 of choice and your physician notified of your admission Receive information and actively participate in decisions about your care and treatment Refuse care, treatment and services Decide who may provide your support and speak for you Access protestant and spiritual services Participate in ethical issues [...] of hospital charges and payment methods Patient/patient community 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 responsibilities are to: Provide information about health status to facilitate care, treatment and services Follow the treatment, plan, keep appointments and speak up when you do not understand the plan Respect the rights of other patients and healthcare personnel Follow organizational rules and regulations that support quality care and a safe environment Fulfill financial obligations as promptly as possible [facility] 11-15-2023 Miscellaneous Notes Your surgery/procedure is scheduled at [facility] on 11/22/23 at 1:30 pm Arrival Time 11:30 am [facility] Address: [address] [place] [address] Park in [address] Parking lot located on [facility]. Report to the Entrance B. Check in at the information desk the surgery. The waiting room located on the second floor. If you have any questions prior to surgery, please call Pre-Admission Clinic at [phone] between 7:30 am and 4:30 pm Monday through Monday. If you have questions the morning of surgery, please call the Pre-op Department at [phone]. Notify your SURGEON if you develop any [...] would like to schedule therapy at a [facility] facility, please call [phone] ([phone]). Do not use lotions, creams, powders, perfume, make up, cologne or after-shaves day of surgery. Remove ALL jewelry including wedding rings, body piercings,hair extensions that contain metal, nail [place], make-up, and contact lens. You may brush [...] RIGHTS AND RESPONSIBILITIES As a patient at [facility], you have the right to: Receive medical care and be informed of who is taking care of you Be treated with dignity and respect Have a family member/community 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 of choice and your physician notified of your admission Receive information and actively participate in decisions about your care and treatment Refuse care, treatment and services Decide who may provide your support and speak for you Access protestant and spiritual services Participate in ethical issues [...] of hospital charges and payment methods Patient/patient community 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 responsibilities are to: Provide information about [...] promptly as possible documented in this encounter [facility] 11-10-2023 History of Present illness Narrative Images from the original note were not included. [facility] PULMONARY/SLEEP [facility]IC[facility] [address] [place] [phone] Subjective: Chief Complaint Mediastinal lymphadenopathy HPI [...] at rest. No wheezing She worked in [employer] in the past with no significant exposure to chemicals. No exposure to asbestos. She does not work since 3-4 years. She lives with her in apartment in [place] Review of Systems Constitutional: Negative. Negative for [...] Medical History: Diagnosis Date Deep vein thrombosis ([facility]) Diabetes mellitus type I ([facility]) Elevated cholesterol GERD (gastroesophageal reflux disease) Hyperlipidemia [...] this note were generated using voice recognition [employer] dictation software. Although every effort was made to ensure the accuracy of this automated entry writer, some errors in entry writer may have occurred. documented in this encounter [facility] 11-09-2023 History of Present illness Narrative Pulm referral for EBUS for pet positive mediastinal lymph node documented in this encounter [facility] 11-09-2023 History of Present illness Narrative Images from the original note were not included. CARDIAC SURGERY OUTPATIENT CONSULT Date of Consultation: 11/09/2023 PCP: DIAZ DALTON MD Chief Complaint: Right lung nodule mediastinal lymph node History of Present Illiness Carissa Santos is a 43 y.o. female who presents [...] min Stress: No Stress Concern Present (06/05/2023) [place]og[place] of Occupational Health - Occupational Stress Questionnaire Feeling of Stress : Only a little Social Connections: Moderately Isolated (06/05/2023) Social Connection and Isolation Panel [NHANES] Frequency of Communication with Friends and Family: More than three times a week Frequency of Social Gatherings with Friends and Family: More than three times a week Attends Oriental Orthodox Services: Never Active Member of Clubs or [...] in her care documented in this encounter [facility] 10-24-2023 History of Present illness Narrative Lvm at the referrring office to follow up if patient had pet/ct scan completed documented in this encounter [facility] 10-10-2023 History of Present illness Narrative Contacted the referring office to see if patient got PET/CT scan completed. Referring office is still waiting for testing to be completed documented in this encounter [facility] 10-10-2023 History of Present illness Narrative Reason for Appointment: Patient ID: Carissa Santos is a 43 y.o. female who presents for Amenorrhea Patient presents today via telephone call for a telehealth appointment. Patients Phone #: [phone] (mobile) Current Medications: has a current medication [...] rhinitis due to allergen 10/01/2009 Anxiety state ([facility]) 10/01/2009 Carpal tunnel syndrome of left wrist 04/06/2023 Contracture, unspecified ankle 04/06/2023 Edema 04/06/2023 Equinus deformity of left foot 04/06/2023 Gastroesophageal reflux disease 04/06/2023 Genital warts 04/06/2023 Hot flashes due to menopause 04/06/2023 Type 2 diabetes mellitus with microalbuminuria, with long-term current use of insulin ([facility]) 04/06/2023 Internal derangement of left shoulder 04/06/2023 Irritable bowel syndrome with diarrhea 04/06/2023 Mild developmental delay 09/29/2021 Migraine without aura, not refractory ([facility]) 04/06/2023 Mild episode of recurrent major depressive disorder (HCC) ([facility]) 04/06/2023 Morbid obesity ([facility]) 11/21/2022 Type 2 diabetes mellitus with polyneuropathy ([facility]) 06/10/2021 Obstructive sleep apnea syndrome 09/30/2009 Osteoarthritis of knee 04/06/2023 Overactive bladder 04/06/2023 Panic disorder without agoraphobia ([facility]) 11/12/2009 Dyslipidemia ([facility]) 04/22/2010 Spondylosis without myelopathy 08/10/2010 Cavitary lesion of lung 08/10/2023 Other chest pain 08/10/2023 Resolved Ambulatory Problems Diagnosis Date Noted Acute kidney injury (DREW) with acute tubular necrosis (ATN) ([facility]) 09/30/2021 Acute pain of left shoulder 04/06/2023 Shoulder joint pain 04/06/2021 Convulsions in the 09/30/2009 Cubital tunnel syndrome on left 11/04/2022 Fecal incontinence 06/22/2016 High anion gap metabolic acidosis 09/30/2021 Hyperglycemia 03/01/2019 Mild intellectual disability ([facility]) 09/30/2009 Other chronic pain 04/06/2023 Pneumonia due to infectious organism 09/29/2021 Poorly controlled diabetes mellitus ([facility]) 08/10/2015 Normal gynecologic examination 06/09/2015 Missed period 04/06/2023 DKA, type 1, not at goal ([facility]) 09/27/2021 Type 2 diabetes mellitus ([facility]) 09/30/2009 Past Medical History: Diagnosis Date Ankle fracture Anxiety and depression ([facility]) At low risk for fall Bilateral leg edema Chest pain, central Chronic left shoulder pain Chronic pain Epilepsy ([facility]) JOHN (generalized anxiety disorder) ([facility]) GERD (gastroesophageal reflux disease) History of being hospitalized History of medical problems Hyperlipidemia ([facility]) Insomnia, persistent MDD (major depressive disorder), recurrent episode, mild ([facility]) ([facility]) Migraine without aura and without status migrainosus, not intractable ([facility]) Morbid obesity with BMI of 40.0-44.9, adult ([facility]) Nocturnal hypoxemia Nonsmoker OAB (overactive bladder) Obesity JOSE M (obstructive sleep apnea) Postoperative urinary retention Primary osteoarthritis of left knee Seasonal allergies Type 2 diabetes mellitus with diabetic polyneuropathy, with long-term current use of insulin ([facility]) Type 2 diabetes mellitus with hyperglycemia, with long-term current use of insulin ([facility]) Type 2 diabetes mellitus without complication ([facility]) Vitamin D deficiency Family History Problem Relation [...] TUNNEL RELEASE Left 09/25/2023 Dr Miller CHOLECYSTECTOMY 2010 CT ANGIOGRAM HEART CORONARY 09/27/2021 CT ANGIOGRAM TAVR 09/27/2021 CT ANGIOGRAM HEART CORONARY 08/08/2023 CT ANGIOGRAM HEART CORONARY 08/08/2023 LAPAROSCOPIC TUBAL LIGATION W/ FILCHIE CLIPS 12/29/2017 LAPAROSCOPY DIAGNOSTIC / BIOPSY / ASPIRATION / LYSIS 12/29/2017 Diagnostic laparoscopy LAPAROTOMY OVARIAN CYSTECTOMY 03/31/2023 [place] ARTHROCENTESIS ASPIR&/INJ MAJOR JT/BURSA W/O US Right [...] labs and ultrasound ordered and faxed to [place] for pt to have obtained. Will notify when results come in. Pt voiced understanding. Documented by Dayanara Wheatley LPN on behalf of: Feliz Benz DO documented in this encounter [facility] 10-05-2023 History of Present illness Narrative HISTORY OF PRESENT ILLNESS: Carissa Santos is an 43 y.o. @ female. 1st [...] develop for requiring urgent evaluation. Barry Snowden CATTLE DIPPER-PACKER INSPECTOR documented in this encounter [facility] 10-05-2023 Note [id number] Note [id number] 09-25-2023 Note [facility] SURGERY Clinical Discharge Summary PERSON INFORMATION Name CARISSA SANTOS Age 43 Years 1980 Sex FEMALE Language [place] PCP DIAZ DALTON Marital Status Phone Med Service Ambulatory Surgery Acct# Arrival 09/25/2023 06:07:34 Visit Reason Surgery- Left carpal tunnel release Acuity LOS 018 22:07 Address: [address] [place] [id number] Comment: PROVIDER INFORMATION VITALS INFORMATION Vital Sign [...] every day. dulagluti (more content not included)... [facility] 09-25-2023 Note Procedure: Decompres maria teresa of median nerve left wrist with release of carpal canal Pre Op Diagnosis: Carpal tunnel syndrome left Post Op Diagnosis: Carpal tunnel syndrome left Surgeon: Dr. Aldo Miller, DO Anesthesia: MAC local Indication for Surgery: [...] on: 09/25/2023 08:41 EST] Arianna Miller DO [facility] 09-11-2023 History of Present illness Narrative 2nd attempt to contact referring office for most recent office notes and testing documented in this encounter [facility] 12-07-2022 Note Attestation signed by Robson Paz [...] Medical History: Diagnosis Date Anxiety Diabetes mellitus ([facility]) Objective Exam: - Incision with slight gapping and granulation tissue present, no evidence of infection - Reasonable post-surgical ROM, swelling, and tenderness - Sensation grossly intact distally - Brisk capillary refill Assessment/Plan Carissa Santos is a 42 y.o. year old female s/p Ulnar Nerve Decompression - Left (11/21/2022) - Patient doing well after surgery - Patient will monitor incision for any signs of infection, no need for antibiotics at this point but they will contact clinic if there are any issues - Return to clinic as needed Ousmane Perez MD Orthopedic Surgery, PGY-5 Pager: [phone] 12/07/22 11:51 AM By using the attestations [...] be an additional personal documentation from me. [facility] 11-21-2022 Note Patient: Carissa Olvera or Procedure Summary Date: 11/21/22 Room / Location: [facility] OR [address] [place] [address] OR Anesthesia Start: 1047 Anesthesia Stop: 1144 [...] no known notable events for this encounter. [facility] 11-21-2022 Note Patient: Carissa Olvera or Procedure Information Anesthesia Start Date/Time: 11/21/221046 Procedure: ULNAR NERVE DECOMPRESSION (Left: Forearm) Location: [facility] OR [address] [place] [address] OR Surgeons: Robson Paz MD Relevant Problems [...] Plan discussed with CAA. Additional Equipment Requests [facility] 11-21-2022 Note Patient: Carissa Olvera or Procedure Summary Date: 11/21/22 Room / Location: [facility] OR [address] [place] [address] OR Anesthesia Start: 1046 Anesthesia Stop: Procedure: ULNAR NERVE DECOMPRESSION (Left: Forearm) Diagnosis: Cubital tunnel syndrome on left (Cubital tunnel syndrome on left [G56.22]) Surgeons: Robson Paz MD Responsible Provider: Paul Smith MD Anesthesia Type: MAC ASA Status: Not recorded Anesthesia Post [facility] Oxygen Flow (L/min): 8 Patient Monitor: direct observation Transport: uneventful Patient condition is: stable [facility] 11-21-2022 Note Peripheral Block Patient location during procedure: pre-op Start time: 11/21/2022 10:15 AM End time: 11/21/2022 10:30 AM Reason for block: primary anesthetic and at surgeon's request Staffing Performed: resident/LAUNDRY BAG PUNCH OPERATOR/CAA Anesthesiologist: Paul Smith MD Resident/LAUNDRY BAG PUNCH OPERATOR: Mike Calloway MD Preanesthetic Checklist Completed: patient identified, IV checked, site marked, risks and benefits discussed, surgical consent, monitors and equipment checked, pre-op evaluation and timeout performed Peripheral Block Patient position: supine Prep: ChloraPrep Patient monitoring: heart rate and continuous pulse ox Block type: supraclavicular brachial plexus Laterality: left Injection technique: single-shot Guidance: ultrasound guided Needle Needle type: [employer] Needle gauge: 22 G Needle length: 2 [...] rate change: no Slow fractionated injection: yes [facility] 11-04-2022 Note Attestation signed by Robson [...] with Left Arm - Pain 11/04/22 Carissa Santos is a 42 y.o. year old [id number] female presenting for evaluation of left hand [...] Past Medical History: Diagnosis Date Diabetes mellitus ([facility]) Objective General: Body mass index is 41.38 [...] finger: normal A1 carina and AROM Strength: beef boner 5/5, thumb 5/5, interossei 5/5 Sensation: intact [...] outside facility. Results described above. Assessment/Plan Carissa Santos is a 42 y.o. year old female [...] intervention - Instructed patient that our surgical dental assistant reach out regarding future surgical date - Surgery will be performed under regional anesthesia -Return to clinic for surgical intervention -Call the orthopedic office any questions or concerns Michael Ward MD Orthopedic Surgery Resident Physician Pager: [phone] 11/04/22 12:35 PM By using the attestations [...] be an additional personal documentation from me. [facility] 10-03-2021 History of Present illness Narrative Images from the original note were not included. [facility] Office: [phone] Hemal Charles DO, Steve Raza DO, Costa Cai DO, Gallito Lino DO, Natalee Negrete MD, Coreen Bryant MD, Shruti Bautista MD, Zulay Bueno MD, Priya Paul MD, Kevin Collins MD, Lyndsey Galindo MD, Morro Overton DO, Guido Salas DO, Rakel Aquino MD, Libby Samuel DO, Maycol Gomez MD, Kalyan Corbett MD, Shahzad Faria MD, Cee Casarez MD, Donavan Richardson MD, Autumn David, PACKER INSPECTOR, Laurie Hernandez, PACKER INSPECTOR, Veronica Garcia, PACKER INSPECTOR, Ada Rascon, [facility], Jamal Soto, PACKER INSPECTOR, Shellie Patton, PACKER INSPECTOR, Dahiana Albarado, PACKER INSPECTOR, Reba Holly, PACKER INSPECTOR, Andi Mcdonald, PACKER INSPECTOR, Terrance Smalls PA-C, Dahiana Vyas, KIMBERLY, Christina Tanner, DNP, Karyna Hernandez, PACKER INSPECTOR, Corina Bedoya, PACKER INSPECTOR, Amber Dewey, PACKER INSPECTOR, Archana Lockhart, PACKER INSPECTOR, Emili Stapleton, PACKER INSPECTOR, Nina Anthony, PACKER INSPECTOR [facility] IN-PATIENT SERVICE [facility] Progress Note 10/03/2021 12:57 PM Name: Carissa Santos Acct: [id number] Room: 016/0161-01 Day: 5 Admit Date: 09/28/2021 9:38 AM PCP: Diaz Dalton MD Code Status: Full Code Subjective: C/C: DKA Interval History Status: unchanged. Patient seen and examined, feeling better today. Discharge, plan for transfer to be Brief History: Carissa Santos is a 41 year old female who was transferred from an [facility] with DKA. Her presentation to ED on 09/26/21 showed her initial blood sugar of 816 with a beta-hydroxybutyrate 11.24, anion gap >25 with (+) ketones in urine. She was started on DKA protocol with bicarb drip, IVF and insulin drip and was transferred to [facility] on 09/28/21 for ICU admission [...] injury (DREW) with acute tubular necrosis (ATN) ([facility]) 09/30/2021 Yes High anion gap metabolic acidosis [...] mm [facility] Will need repeat CT in 3 months based on Fleischner criteria Guido Salas DO 10/03/2021 12:57 PM PULMONARY & CRITICAL CARE MEDICINE PROGRESS NOTE Patient: Carissa Santos Admit date: 09/28/2021 Primary Care Physician: Diaz Dalton MD Consulting Physician: Guido Salas DO CODE Status: Full Code LOS: 5 SUBJECTIVE Chief Complaint/ Reason for consult: Pneumonia Hospital Course: The patient is a 41 y.o. female with past medical history of MRDD initially went to the [facility] for nausea, shivering, chills and altered mental status. Patient was found to have DKA with bilateral lower lobe pneumonia. CTA negative for PE but it showed 13 mm pulmonary nodule. Patient was transferred to [facility] for further care. In ICU she was [...] Date 10/03/21 0000 - 10/03/21 2359 Shift 5159-2669 0180-3474 0974-2286 24 Hour Total INTAKE P.O.(mL/kg/hr) 360(0.4) 360 Shift Total(mL/kg) 360(3.6) 360(3.6) OUTPUT Shift Total(mL/kg) Weight (kg) 101.2 101.2 101.2 101.2 LABS: ABGs: No results for input(s): POCPH, POCPCO2, POCPO2, POCHCO3, QHSD3DGI in the last 72 hours. CBC: Recent [...] <0.10* 0.17* -- Coagulation Profile: Recent Labs 10/01/214 10/01/21 0859 INR 1.3 1.1 PROTIME 13.8* [...] this chart was generated using voice recognition [employer] dictation software. Although every effort was made to ensure the accuracy of this automated entry writer, some errors in entry writer may have occurred. School Psychology Professor spoke with pt's mother Jeanine in regards to patient's discharge. Jeanine states she knows how to perform the dressing on pt's arm and is comfortable doing so. Pt will need a ride home. School Psychology Professor will reach out to case management for setting up a ride. Images from the original note were not included. [facility] Office: [phone] Hemal Charles DO, Steve Raza DO, Costa Cai DO, Gallito Lino, DO, Natalee Negrete MD, Coreen Bryant MD, Shruti Bautista MD, Zulay Bueno MD, Priya Paul MD, Kevin Collins MD, Lyndsey Galindo MD, Morro Overton DO, Guido Salas DO, Rakel Aquino MD, Libby Samuel DO, Maycol Gomez MD, Kalyan Corbett MD, Shahzad Faria MD, Cee Casarez MD, Donavan Richardson MD, Autumn David, PACKER INSPECTOR, Laurie Hernandez, PACKER INSPECTOR, Veronica Garcia, PACKER INSPECTOR, Ada Rascon, SAFETY INSTRUCTION POLICE OFFICER, Jamal Soto, PACKER INSPECTOR, Shellie Patton, PACKER INSPECTOR, Dahiana Albarado, PACKER INSPECTOR, Reba Holly, PACKER INSPECTOR, Andi Mcdonald, PACKER INSPECTOR, Terrance Smalls, PA-C, Dahiana Vyas, DNP, Christina Tanner, DNP, Karyna Hernandez, PACKER INSPECTOR, Corina Bedoya, PACKER INSPECTOR, Amber Dewey, PACKER INSPECTOR, Archana Lockhart, PACKER INSPECTOR, Emili Stapleton, PACKER INSPECTOR, Nina Anthony, PACKER INSPECTOR [facility] IN-PATIENT SERVICE [facility] Progress Note 10/02/2021 1:51 PM Name: Carissa Santos Acct: [id number] [id number] Day: 4 Admit Date: 09/28/2021 9:38 AM PCP: Diaz Dalton MD Code Status: Full Code Subjective: C/C: DKA Interval History Status: unchanged. Diarrhea has improved today, discussed discharge which patient was agreeable with. Family will be able to help her with wound care, advise starting a decreased brace for her Lantus increase as needed. Brief History: Carissa Santos is a 41 year old female who was transferred from an [facility] facility with DKA. Her presentation to ED on 09/26/21 showed her initial blood sugar of 816 with a beta-hydroxybutyrate 11.24, anion gap >25 with (+) ketones in urine. She was started on DKA protocol with bicarb drip, IVF and insulin drip and was transferred to [facility] on 09/28/21 for ICU admission and further treatment. In addition she had an elevated D-dimer. CTPE (-) for PE but concerning for RML pulmonary nodule and ill-defined ground glass opacification in the RUL concerning for PNA. She did have episodes of vomiting which have subsided. She was bridged to lantus insulin and insulin drip was discontinued. Transfer to [facility] bed 09/29/21 Review of Systems: [...] injury (DREW) with acute tubular necrosis (ATN) ([facility]) 09/30/2021 Yes High anion gap metabolic acidosis [...] 3 months based on Fleischner criteria Guido Salas DO 10/02/2021 1:51 PM PULMONARY & CRITICAL CARE MEDICINE PROGRESS NOTE Patient: Carissa Santos Admit date: 09/28/2021 Primary Care Physician: Diaz Dalton MD Consulting Physician: Guido Salas DO CODE Status: Full Code LOS: 4 SUBJECTIVE Chief Complaint/ Reason for consult: Pneumonia Hospital Course: The patient is a 41 y.o. female with past medical history of MRDD initially went to the [facility] for nausea, shivering, chills and altered mental status. Patient was found to have DKA with bilateral lower lobe pneumonia. CTA negative for PE but it showed 13 mm pulmonary nodule. Patient was transferred to [facility] for further care. In ICU she was [...] 522 [I.V.:522] Out: 400 [Urine:400] Date 10/02/21 - 10/02/212358 Shift 7523-1793 9157-1684 1935-2754 24 Hour Total INTAKE I.V.(mL/kg) 522(5.2) 522(5.2) Shift Total(mL/kg) 522(5.2) 522(5.2) OUTPUT Shift Total(mL/kg) Weight (kg) 101.2 101.2 101.2 101.2 LABS: ABGs: No results for input(s): POCPH, POCPCO2, POCPO2, POCHCO3, MLHM9ACP in the last 72 hours. CBC: Recent [...] Keith Bailey MD PGY-3, Internal medicine resident [place], [place] Please note that this chart was generated using voice recognition GenJuice[employer] dictation software. Although every effort was made to ensure the accuracy of this automated entry writer, some errors in entry writer may have occurred. Associated attestation - Gian Marr MD - 10/02/2021 6:49 PM EST Attending Physician Statement I have discussed the case of Carissa Santos, including pertinent history and exam findings with the resident/fellow/medical student/POLICY VALUE CALCULATOR/PA. I have seen and examined the patient and the timmons elements of the encounter have been performed by me. I agree with the assessment, plan and orders as documented by the resident/fellow/medical student/POLICY VALUE CALCULATOR/PA With changes made to the note as [...] up with her primary care physician and clinical documentation developer in [place] as she does not have any transportation to come to [facility] Gian Marr MD 10/02/2021 6:48 PM School Psychology Professor notified Pt was in SVT with HR in 160-170 that was sustained for approximately 1-2 minutes. Pt has since converted back to NSR ( HR 91) . Pt was asymptomatic during rhythm. Is there anything you would like done? . No new orders at this time. GOSIA KOLB, RCPPatient Assessment complete. DKA, type 1, not [...] No cough or weak non-productive cough GOSIA KOLB, PHYSICAL DIRECTOR 1:03 PM FEMALE MALE FEV1 Predicted Normal [...] [phone] Physical Therapy Facility/Department: [address] [facility] [facility] Daily Treatment Note NAME: Carissa Santos : 1980 Date of Service: 10/01/2021 Discharge [...] Mobility Inpatient CMS G-Code Modifier : CK (10/01/21 1230) Goals Short term goals Time Frame for [...] Minutes Sarah Guzmán PTA Called pt room ([phone]) and number in chart but no answer. [...] from the original note were not included. [facility] Office: [phone] Hemal Charles DO, Steve Raza DO, Costa Cai DO, Gallito Lino DO, Natalee Negrete MD, Coreen Bryant MD, Shruti Bautista MD, Zulay Bueno MD, Priya Paul MD, Kevin Collins MD, Lyndsey Galindo MD, Morro Overton DO, Guido Salas DO, Rakel Aquino MD, Libby Samuel DO, Maycol Gomez MD, Kalyan Corbett MD, Shahzad Faria MD, Cee Casarez MD, Donavan Richardson MD, Autumn David CNP, Laurie Hernandez PACKER INSPECTOR, Veronica Garcia CNP, Ada Rascon, SAFETY INSTRUCTION POLICE OFFICER, Jamal Soto, PACKER INSPECTOR, Shellie Patton, PACKER INSPECTOR, Dahiana Albarado, PACKER INSPECTOR, Reba Holly, PACKER INSPECTOR, Andi Mcdonald, PACKER INSPECTOR, Terrance Smalls PA-C, Dahiana Vyas DNP, Christina Tanner DNP, Karyna Hernandez, LUCIANO, Corina Bedoya, LUCIANO, Amber Dewey, LUCIANO, Archana Lockhart CNP, Emili Stapleton CNP, Nina Anthony CNP [facility] IN-PATIENT SERVICE [facility] Progress Note 10/01/2021 11:21 AM Name: Carissa Santos Acct: [id number] Room: [address] [place] [address] IP Day: 3 Admit Date: 09/28/2021 9:38 AM PCP: Diaz Dalton MD Code Status: Full Code Subjective: C/C: DKA Interval History Status: unchanged. Patient seen and examined today, continues to have diffuse diarrhea. Bicarb still 13 on full bicarb drip. Will consult infectious disease, spoke with nursing staff Brief History: Carissa Santos is a 41 year old female who was transferred from an outlying facility with DKA. Her presentation to ED on 09/26/21 showed her initial blood sugar of 816 with a beta-hydroxybutyrate 11.24, anion gap >25 with (+) ketones in urine. She was started on DKA protocol with bicarb drip, IVF and insulin drip and was transferred to [facility] on 09/28/21 for ICU admission [...] injury (DREW) with acute tubular necrosis (ATN) [facility] [facility]) 09/30/2021 Yes High anion gap metabolic acidosis [...] 3 months based on Fleischner criteria Guido Salas DO 10/01/2021 11:21 AM PULMONARY & CRITICAL CARE MEDICINE PROGRESS NOTE Patient: Carissa Santos Admit date: 09/28/2021 Primary Care Physician: Diaz Dalton MD Consulting Physician: Guido Salas DO CODE Status: Full Code LOS: 3 SUBJECTIVE Chief Complaint/ Reason for consult: Pneumonia Hospital Course: The patient is a 41 y.o. female with past medical history of MRDD initially went to the [facility] for nausea, shivering, chills and altered mental status. Patient was found to have DKA with bilateral lower lobe pneumonia. CTA negative for PE but it showed 13 mm pulmonary nodule. Patient was transferred to [facility] for further care. In ICU she was [...] Out: 2600 [Urine:2600] Date 10/01/21 0000 - 10/01/219 Shift 0822-7619 7597-8483 5807-8076 24 Hour Total INTAKE Shift Total(mL/kg) OUTPUT Urine(mL/kg/hr) 600(0.7) 600 Shift Total(mL/kg) 600(5.9) 600(5.9) Weight (kg) 101.2 101.2 101.2 101.2 LABS: ABGs: No results for input(s): POCPH, POCPCO2, POCPO2, POCHCO3, ILQH2CUU in the last 72 hours. CBC: Recent [...] not displayed. Liver Function Test: Recent Labs 10/01/2123310/01/21 0859 PROT 4.6* -- LABALBU 1.9* -- ALT 11 -- AST 12 -- ALKPHOS 69 -- BILITOT <0.10* 0.17* Coagulation Profile: Recent Labs 10/01/2123310/01/21 0859 INR [...] Keith Bailey MD PGY-3, Internal medicine resident [facility], [place], [place] Please note that this chart was generated using voice recognition Dragon dictation software. Although every effort was made to ensure the accuracy of this automated entry writer, some errors in entry writer may have occurred. Attending Physician Statement I have discussed the care of Carissa Angela, including pertinent history and exam findings with [...] x-ray PA [facility] at this time we will requested again. Patient is aware and discussed with her again that she will need CT scan of the chest for follow-up of right middle lobe lung nodule in 3 months. Patient follow-up locally in [facility] with CT scan and outpatient pulmonary CT scan Discussed with nursing staff, treatment and plan discussed. Please note that this chart was generated using voice recognition GenJuiceon dictation software. Although every effort was made to ensure the accuracy of this automated entry writer, some errors in entry writer may have occurred. Leonel Draper MD 10/01/2021 11:36 AM Occupational Therapy Occupational Therapy Initial Assessment Date: 09/30/2021 Patient Name: Carissa Santos : 1980 41-year-old female with history of [...] Ambulation Assistance: Independent Transfer Assistance: Independent Active Director Corporate Communications: No Patient's Director Corporate Communications Info: mother drives Occupation: Unemployed Leisure & [...] R Shoulder Ext: 4/5 R Elbow Flex: 12/07 R Elbow Ext: (KRAIG d/t pt's reported increased fatigue) R Hand General: 12/07 RUE Strength Comment: grossly 4 Plan Plan Times per week: 3-4xwk Current [...] Time Individual Concurrent Group Co-treatment Time In 08 Time Out 0916 Minutes 41 Timed Code Treatment Minutes: 23 Minutes Dayna Yates [employer] Psychology Professor reached out to munitions worker on 2C to obtain lung scans from [facility]. grocery clerk stocking attempting to reach out, ad copy writer will reevaluate Attempted assessment/education but care support 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 assisting pt with personal care/needs. PULMONARY & CRITICAL CARE MEDICINE PROGRESS NOTE Patient: Carissa Santos Admit date: 09/28/2021 Primary Care Physician: Diaz Dalton MD Consulting Physician: Maycol Gomez MD CODE Status: Full Code LOS: 2 SUBJECTIVE Chief Complaint/ Reason for consult: Pneumonia Hospital Course: The patient is a 41 y.o. female with past medical history of MRDD initially went to the [facility] for nausea, shivering, chills and altered mental status. Patient was found to have DKA with bilateral lower lobe pneumonia. CTA negative for PE but it showed 13 mm pulmonary nodule. Patient was transferred to [facility] for further care. In ICU she was [...] Out: 2750 [Urine:2750] Date 09/30/21 0000 - 09/30/212358 Shift 3961-0138 2825-5287 0818-3818 24 Hour Total INTAKE Shift Total(mL/kg) OUTPUT Urine(mL/kg/hr) 500(0.6) 1000 1500 Shift Total(mL/kg) 500(4.9) 1000(9.9) 1500(14.8) Weight (kg) 101.2 101.2 101.2 101.2 LABS: ABGs: No results for input(s): POCPH, POCPCO2, POCPO2, POCHCO3, QIWP9MIT in the last 72 hours. CBC: Recent [...] Keith Bailey MD PGY-3, Internal medicine resident [facility], [place], [place] Please note that this chart was generated using voice recognition GenJuiceon dictation software. Although every effort was made to ensure the accuracy of this automated entry writer, some errors in entry writer may have occurred. Attending Physician Statement I have discussed the care of Carissa Santos, including pertinent history and exam findings with [...] CT scan of the chest done in [facility] before she was transferred shows right upper lobe possible groundglass infiltrate/pneumonia and right middle lobe 13 mm nodule which according to radiology report (I do not have any images available from [facility]) could be infectious inflammatory or other [...] this chart was generated using voice recognition GenJuiceon dictation software. Although every effort was made to ensure the accuracy of this automated entry writer, some errors in entry writer may have occurred. Leonel Draper MD 09/30/2021 3:36 PM RN attempted to call mother of patient, Lynne, to give update on pt's status, with no answer. Will try again later. Physical Therapy Facility/Department: [address] Initial Assessment NAME: Carissa Santos : 1980 Carissa Santos is a 41 y.o. Non- / non [...] Ambulation Assistance: Independent Transfer Assistance: Independent Active Director Corporate Communications: No Patient's Director Corporate Communications Info: mother drives Occupation: Unemployed Leisure & [...] Bed mobility Supine to Sit: Minimal assistance (EDGER FEEDER) Sit to Supine: (retired to bedside chair [...] from the original note were not included. [facility] Office: [phone] Hemal Charles DO, Steve Raza DO, Costa Cai DO, Gallito Lino DO, Natalee Negrete MD, Coreen Bryant MD, Shruti Bautista MD, Zulay Bueno MD, Priya Paul MD, Kevin Collins MD, Lyndsey Galindo MD, Morro Overton DO, Gudio Salas DO, Rakel Aquino MD, Libby Samuel DO, Maycol Gomez MD, Kalyan Corbett MD, Shahzad Faria MD, Cee Casarez MD, Donavan Richardson MD, Autumn David, PACKER INSPECTOR, Laurie Hernandez PACKER INSPECTOR, Veronica Garcia CNP, Ada Rascon, SAFETY INSTRUCTION POLICE OFFICER, Jamal Soto CNP, Shellie Patton CNP, Dahiana Albarado, LUCIANO, Reba Holly, LUCAINO, Andi Mcdonald, LUCIANO, Terrance Smalls PA-C, Dahiana Vyas DNP, Christina Tanner DNP, Karyna Hernandez, LUCIANO, Corina Bedoya, LUCIANO, Amber Dewey, LUCIANO, Archana Lockhart, LUCIANO, Emili Stapleton, ULCIANO, Nina Anthony, LUCIANO [facility] IN-PATIENT SERVICE [facility] Progress Note 09/30/2021 11:41 AM Name: Carissa Santos Acct: [id number] Room: [facility]0161-01 Day: 2 Admit Date: 09/28/2021 9:38 AM PCP: Diaz Dalton MD Code Status: Full Code Subjective: C/C: DKA Interval History Status: unchanged. Pt seen and evaluated this morning. She continues to feel ill. Continues to have a dry cough. She is denying fever, chills, nausea, vomiting, diarrhea. Brief History: Carissa Santos is a 41 year old female [facility]. Her presentation to ED on 09/26/21 showed her initial blood sugar of 816 with a beta-hydroxybutyrate 11.24, anion gap >25 with (+) ketones in urine. She was started on DKA protocol with bicarb drip, IVF and insulin drip and was transferred to [facility] on 09/28/21 for ICU admission [...] mm [facility] Will need repeat CT in 3 months based on Fleischner criteria Terrance Smalls PA-C 09/30/2021 11:41 AM Critical care team - Resident sign-out to medicine service Date and time: 09/29/2021 3:09 PM Patient's name: Carissa Santos Patient's account/billing number: [id number] Patient's Date of : 1980 Age: 41 y.o. Date of Admission: 09/28/2021 9:38 AM Length of stay during current admission: 1 Primary Care Physician: Diaz Dalton MD Code Status: Full Code Mode of [...] history of MRDD, diabetes mellitus came from [facility] after presenting there with altered mental status and found to be in DKA. Over that patient was started on an insulin drip, Ringer lactate, bicarb drip. Transferred to [facility] for further management. Overnight was bridged to Lantus, tolerating diet. On admission her D-dimer was high, CT PE negative for emboli but concerning for pneumonia as well as right middle lobe 13 mm pulmonary nodule. Patient is being treated with ceftriaxone and azithromycin for pneumonia and UTI, Diflucan added for yeast in urine. director of food and nutrition services consulted Current Vitals: BP (!) 109/59 [...] time: 09/29/2021 8:19 AM Patient's name: Carissa Santos Patient's account/billing number: [id number] Patient's Date of : 1980 Age: 41 y.o. Date of Admission: 09/28/2021 9:38 AM Length of stay during current admission: 1 Primary Care Physician: Diaz Dalton MD Code Status: Full Code Reason for [...] degree Ulcer prophylaxis: [] PPI Agent, [] A5Rsovn, [] Sucralfate, [] Other: Not indicated Glycemic [...] Giron Sra, MD Department of Critical Care [facility], [place] 09/29/2021, 8:19 AM Associated attestation - Gian Marr MD - 09/29/2021 7:26 PM EST Attending Physician Statement I have discussed the case of Carissa Santos, including pertinent history and exam findings with the resident/fellow/medical student/POLICY VALUE CALCULATOR/PA. I have seen and examined the patient and the timmons elements of the encounter have been performed by me. I agree with the assessment, plan and orders as documented by the resident/fellow/medical student/POLICY VALUE CALCULATOR/PA With changes made to the note as [...] monitor We will transfer the patient to [facility] bed and we will follow the [...] with pastoral care, Ethics consult entered per it technician's recommendation for help with decision making and [...] Ostomy Continence Nurse Consult Note NAME: Carissa Santos AGE: 41 y.o. GENDER: female : 1980 TODAY'S DATE: 09/28/2021 Subjective: Reason for WOCN Evaluation and Assessment: Carissa Santos is a 41 y.o. female referred by: [] Physician [] Nursing [] Other: Wound Identification: Wound Type: abscess, surgical Contributing Factors: diabetes and poor glucose control Per Care Everywhere EHR: Abscess top the rt proximal medial arm s/p I&D on 09/24/[address] Aliya Solorzano. Uncontrolled bleeding that same day. Patient went [...] Wound Volume (cm^3) 2.96 cm^3 Wound Assessment Subcutaneous;Jal/red Drainage Amount Small Drainage Description Serosanguinous Odor [...] Plan: tbd Follow up to Dr Aliya Solorzano as scheduled regarding the arm wounds. Patient/Caregiver [...] contents upon arrival. documented in this encounter [facility] Phone: 09-29-2021 Hospital Discharge instructions Li Phelan RN - 09/29/2021 1:44 PM EST Images from the original note were not included. Continuity of Care Form Patient Name: Carissa Santos : 1980 Admit date: 09/28/2021 Discharge date: 10/02/21 Code Status Order: Full Code Advance Directives: Admitting Physician: Jamal Levine MD PCP: Diaz Dalton MD Discharging Nurse: Li RN Discharging Hospital Unit/Room#: 0105/0105-01 Discharging Unit Emergency Contact: Extended Emergency Contact Information Primary Emergency Contact: Braxton Santos Relation: Spouse Secondary Emergency Contact: Jeanine Dunn [...] Independent Dressing Independent Toileting Independent Feeding Independent Authorizer Independent Med Delivery whole Wound Care Documentation [...] [facility] [address] [address] Dialysis Facility (if applicable) Name: Address: Dialysis Schedule: Phone: Fax: Commercial Lender/Outer Diameter Grinder signature: PHYSICIAN SECTION Prognosis: Good Condition at Discharge: Stable Rehab Potential (if transferring to Rehab): Good Recommended Labs or Other Treatments After Discharge: residential assessment, medication education, wound care Rt upper arm: Irrigate the arm wound with NS Gently fill with Iodoform gauze Cover with dry gauze Change daily. 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, uncontrolled Pneumonia due to infectious organism Mental developmental delay Unspecified delay in development Acute kidney injury (DREW) with acute tubular necrosis (ATN) ([facility]) High anion gap metabolic acidosis Acidosis documented in this encounter [facility] Phone: evaluation note* Diagnosis Status post carpal tunnel release- Primary Other postprocedural status Amenorrhea Absence of menstruation documented in this encounter [facility]* Diagnosis Amenorrhea Absence of menstruation documented in this encounter [facility]* Diagnosis Type 2 diabetes mellitus with hyperglycemia, with long-term current use of insulin ([facility])- Primary documented in this encounter [facility]* Diagnosis Post-operative pain- Primary Other acute postoperative pain documented in this encounter [facility]* Diagnosis Mild episode of recurrent major depressive disorder (HCC) ([facility])- Primary Type 2 diabetes mellitus with microalbuminuria, with long-term current use of insulin ([facility]) JOHN (generalized anxiety disorder) (CMS/HCC) Generalized anxiety disorder Migraine without aura and without status migrainosus, not intractable (CMS/HCC) Irritable bowel syndrome with diarrhea Irritable bowel syndrome Gastroesophageal reflux disease without esophagitis Esophageal reflux Hot flashes due to menopause Morbid obesity (CMS/HCC) 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.4) Obesity hypoventilation [...] disease without esophagitis Esophageal reflux Anxiety state ([facility]/HCC) Anxiety state, unspecified Type 2 diabetes mellitus with hyperglycemia, with long-term current use of insulin (CMS/HCC)- Primary Right carpal tunnel syndrome Carpal tunnel syndrome Chronic hypoxic respiratory failure (CMS/HCC) Mild episode of recurrent major depressive disorder (HCC) (CMS/HCC) JOHN (generalized anxiety disorder) ([facility]/HCC) Generalized anxiety disorder Generalized edema 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 Spondylosis of unspecified site without mention of myelopathy 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 elsewhere ([facility]) Acute pain of right knee- Primary Type 2 diabetes mellitus with microalbuminuria, with long-term current use of insulin ([facility]/HCC) Right carpal tunnel syndrome Carpal tunnel syndrome Status post carpal tunnel release- Primary Other postprocedural status documented in this encounter [facility]* Diagnosis Pulmonary hypertension ([facility]-HCC)- Primary Other chronic pulmonary heart diseases [facility] Diagnosis Mild episode of recurrent major depressive disorder (HCC) (CMS/HCC)- Primary Type 2 diabetes mellitus with microalbuminuria, with long-term current use of insulin (CMS/HCC) JOHN (generalized anxiety disorder) ([facility]/HCC) Generalized anxiety disorder Migraine without aura and without status migrainosus, not intractable (CMS/HCC) Irritable bowel syndrome with diarrhea Irritable bowel syndrome Gastroesophageal reflux disease without esophagitis Esophageal reflux Hot flashes due to menopause Morbid obesity (CMS/HCC) 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.4) Obesity hypoventilation syndrome ([facility]/HCC)- Primary Obesity hypoventilation syndrome Hypoxia Hypoxemia Type 2 diabetes mellitus with microalbuminuria, with long-term current use of insulin ([facility]/HCC) Right carpal tunnel syndrome Carpal tunnel syndrome Elevated blood-pressure reading without diagnosis of hypertension Elevated blood pressure reading without diagnosis of hypertension Type 2 diabetes mellitus with hyperglycemia, with long-term current use of insulin ([facility])- Primary Mild episode of recurrent major depressive disorder (HCC) ([facility]) JOHN (generalized anxiety disorder) ([facility]) Generalized anxiety disorder Carpal tunnel syndrome of left wrist Obesity hypoventilation syndrome ([facility]/HCC) Obesity hypoventilation syndrome Generalized edema Edema Irritable bowel syndrome with diarrhea Irritable bowel syndrome Gastroesophageal reflux disease without esophagitis Esophageal reflux Anxiety state ([facility]) Anxiety state, unspecified Type 2 diabetes mellitus with hyperglycemia, with long-term current use of insulin ([facility])- Primary Right carpal tunnel syndrome Carpal tunnel syndrome Chronic hypoxic respiratory failure ([facility]) Mild episode of recurrent major depressive disorder (HCC) ([facility]) JOHN (generalized anxiety disorder) ([facility]) Generalized anxiety disorder Generalized edema 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 Spondylosis of unspecified site without mention of myelopathy 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 elsewhere ([facility]) Acute pain of right knee- Primary Type 2 diabetes mellitus with microalbuminuria, with long-term current use of insulin ([facility]) Right carpal tunnel syndrome Carpal tunnel syndrome Anxiety state ([facility]) Anxiety state, unspecified documented in this encounter [facility]* Diagnosis Mild episode of recurrent major depressive disorder (HCC) ([facility])- Primary Type 2 diabetes mellitus with microalbuminuria, with long-term current use of insulin ([facility]) JOHN (generalized anxiety disorder) ([facility]) Generalized anxiety disorder Migraine without aura and without status migrainosus, not intractable ([facility]/HCC) Irritable bowel syndrome with diarrhea Irritable bowel syndrome Gastroesophageal reflux disease without esophagitis Esophageal reflux Hot flashes due to menopause Morbid obesity (CMS/HCC) 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.4) Obesity hypoventilation syndrome (CMS/HCC)- Primary Obesity hypoventilation syndrome Hypoxia Hypoxemia Type 2 diabetes mellitus with microalbuminuria, with long-term current use of insulin ([facility]/HCC) Right carpal tunnel syndrome Carpal tunnel syndrome Elevated blood-pressure reading without diagnosis of hypertension Elevated blood pressure reading without diagnosis of hypertension Type 2 diabetes mellitus with hyperglycemia, with long-term current use of insulin ([facility]/HCC)- Primary Mild episode of recurrent major depressive disorder (HCC) ([facility]) JOHN (generalized anxiety disorder) ([facility]) Generalized anxiety disorder Carpal tunnel syndrome of left wrist Obesity hypoventilation syndrome (CMS/HCC) Obesity hypoventilation syndrome Generalized edema Edema Irritable bowel syndrome with diarrhea Irritable bowel syndrome Gastroesophageal reflux disease without esophagitis Esophageal reflux Anxiety state ([facility]) Anxiety state, unspecified Type 2 diabetes mellitus with hyperglycemia, with long-term current use of insulin ([facility])- Primary Right carpal tunnel syndrome Carpal tunnel syndrome Chronic hypoxic respiratory failure ([facility]) Mild episode of recurrent major depressive disorder (HCC) ([facility]) JOHN (generalized anxiety disorder) ([facility]) Generalized anxiety disorder Generalized edema 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 Spondylosis of unspecified site without mention of myelopathy 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 elsewhere ([facility]) Acute pain of right knee- Primary Type 2 diabetes mellitus with microalbuminuria, with long-term current use of insulin ([facility]) Right carpal tunnel syndrome Carpal tunnel syndrome Status post carpal tunnel release- Primary Other postprocedural status documented in this encounter [facility]* Diagnosis Mild episode of recurrent major depressive disorder (HCC) ([facility])- Primary Type 2 diabetes mellitus with microalbuminuria, with long-term current use of insulin ([facility]) JOHN (generalized anxiety disorder) ([facility]) Generalized anxiety disorder Migraine without aura and without status migrainosus, not intractable ([facility]) Irritable bowel syndrome with diarrhea Irritable bowel syndrome Gastroesophageal reflux disease without esophagitis Esophageal reflux Hot flashes due to menopause Morbid obesity ([facility]/HCC) Morbid obesity FPC (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 insulin (Z79.4) Obesity hypoventilation syndrome (CMS/HCC)- Primary Obesity hypoventilation syndrome Hypoxia Hypoxemia Type 2 diabetes mellitus with microalbuminuria, with long-term current use of insulin ([facility]) Right carpal tunnel syndrome Carpal tunnel syndrome Elevated blood-pressure reading without diagnosis of hypertension Elevated blood pressure reading without diagnosis of hypertension Type 2 diabetes mellitus with hyperglycemia, with long-term current use of insulin ([facility])- Primary Mild episode of recurrent major depressive disorder (HCC) ([facility]) JOHN (generalized anxiety disorder) ([facility]) Generalized anxiety disorder Carpal tunnel syndrome of left wrist Obesity hypoventilation syndrome ([facility]/HCC) Obesity hypoventilation syndrome Generalized edema Edema Irritable bowel syndrome with diarrhea Irritable bowel syndrome Gastroesophageal reflux disease without esophagitis Esophageal reflux Anxiety state ([facility]) Anxiety state, unspecified Type 2 diabetes mellitus with hyperglycemia, with long-term current use of insulin ([facility])- Primary Right carpal tunnel syndrome Carpal tunnel syndrome Chronic hypoxic respiratory failure ([facility]) Mild episode of recurrent major depressive disorder (HCC) ([facility]) JOHN (generalized anxiety disorder) ([facility] Generalized anxiety disorder Generalized edema 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 Spondylosis of unspecified site without mention of myelopathy 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 elsewhere ([facility]) Acute pain of right knee- Primary Type 2 diabetes mellitus with microalbuminuria, with long-term current use of insulin ([facility]) Right carpal tunnel syndrome Carpal tunnel syndrome Type 2 diabetes mellitus with hyperglycemia, with long-term current use of insulin ([facility]) documented in this encounter [facility]* Diagnosis Mild episode of recurrent major depressive disorder (HCC) ([facility])- Primary Type 2 diabetes mellitus with microalbuminuria, with long-term current use of insulin ([facility]) JOHN (generalized anxiety disorder) ([facility]) Generalized anxiety disorder Migraine without aura and without status migrainosus, not intractable ([facility]) Irritable bowel syndrome with diarrhea Irritable bowel syndrome Gastroesophageal reflux disease without esophagitis Esophageal reflux Hot flashes due to menopause Morbid obesity ([facility]) Morbid obesity [facility]PC (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 insulin (Z79.4) Obesity hypoventilation syndrome ([facility])- Primary Obesity hypoventilation syndrome Hypoxia Hypoxemia Type 2 diabetes mellitus with microalbuminuria, with long-term current use of insulin ([facility]) Right carpal tunnel syndrome Carpal tunnel syndrome Elevated blood-pressure reading without diagnosis of hypertension Elevated blood pressure reading without diagnosis of hypertension Type 2 diabetes mellitus with hyperglycemia, with long-term current use of insulin ([facility])- Primary Mild episode of recurrent major depressive disorder (HCC) ([facility]/HCC) JOHN (generalized anxiety disorder) ([facility]) Generalized anxiety disorder Carpal tunnel syndrome of left wrist Obesity hypoventilation syndrome ([facility]/HCC) Obesity hypoventilation syndrome Generalized edema Edema Irritable bowel syndrome with diarrhea Irritable bowel syndrome Gastroesophageal reflux disease without esophagitis Esophageal reflux Anxiety state ([facility]) Anxiety state, unspecified Type 2 diabetes mellitus with hyperglycemia, with long-term current use of insulin ([facility])- Primary Right carpal tunnel syndrome Carpal tunnel syndrome Chronic hypoxic respiratory failure ([facility]) Mild episode of recurrent major depressive disorder (HCC) ([facility]) JOHN (generalized anxiety disorder) ([facility]) Generalized anxiety disorder Generalized edema 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 Spondylosis of unspecified site without mention of myelopathy 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 elsewhere ([facility]) Acute pain of right knee- Primary Type 2 diabetes mellitus with microalbuminuria, with long-term current use of insulin ([facility]) Right carpal tunnel syndrome Carpal tunnel syndrome Chronic hypoxic respiratory failure ([facility])- Primary Chronic heart failure with preserved ejection fraction (HFpEF) ([facility]) Type 2 diabetes mellitus with hyperglycemia, with long-term current use of insulin ([facility]) Pulmonary hypertension ([facility]) Other chronic pulmonary heart diseases Colon cancer screening Special screening for malignant neoplasms, colon Gastroesophageal reflux disease without esophagitis Esophageal reflux documented in this encounter [facility]* Diagnosis Mild episode of recurrent major depressive disorder (HCC) ([facility])- Primary Type 2 diabetes mellitus with microalbuminuria, with long-term current use of insulin ([facility]) JOHN (generalized anxiety disorder) ([facility]) Generalized anxiety disorder Migraine without aura and without status migrainosus, not intractable ([facility]) Irritable bowel syndrome with diarrhea Irritable bowel syndrome Gastroesophageal reflux disease without esophagitis Esophageal reflux Hot flashes due to menopause Morbid obesity ([facility]) Morbid obesity [facility]PC (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 insulin (Z79.4) Obesity hypoventilation syndrome ([facility])- Primary Obesity hypoventilation syndrome Hypoxia Hypoxemia Type 2 diabetes mellitus with microalbuminuria, with long-term current use of insulin ([facility]) Right carpal tunnel syndrome Carpal tunnel syndrome Elevated blood-pressure reading without diagnosis of hypertension Elevated blood pressure reading without diagnosis of hypertension Type 2 diabetes mellitus with hyperglycemia, with long-term current use of insulin ([facility])- Primary Mild episode of recurrent major depressive disorder (HCC) ([facility]) JOHN (generalized anxiety disorder) ([facility]) Generalized anxiety disorder Carpal tunnel syndrome of left wrist Obesity hypoventilation syndrome ([facility]/HCC) Obesity hypoventilation syndrome Generalized edema Edema Irritable bowel syndrome with diarrhea Irritable bowel syndrome Gastroesophageal reflux disease without esophagitis Esophageal reflux Anxiety state ([facility]) Anxiety state, unspecified Type 2 diabetes mellitus with hyperglycemia, with long-term current use of insulin ([facility])- Primary Right carpal tunnel syndrome Carpal tunnel syndrome Chronic hypoxic respiratory failure ([facility]) Mild episode of recurrent major depressive disorder (HCC) ([facility]) JOHN (generalized anxiety disorder) ([facility]) Generalized anxiety disorder Generalized edema 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 Spondylosis of unspecified site without mention of myelopathy 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 elsewhere ([facility]) Acute pain of right knee- Primary Type 2 diabetes mellitus with microalbuminuria, with long-term current use of insulin ([facility]) Right carpal tunnel syndrome Carpal tunnel syndrome Well woman exam with routine gynecological exam Routine gynecological examination Chronic hypoxic respiratory failure ([facility])- Primary Chronic heart failure with preserved ejection fraction (HFpEF) ([facility]) Type 2 diabetes mellitus with hyperglycemia, with long-term current use of insulin ([facility]) Pulmonary hypertension ([facility]) Other chronic pulmonary heart diseases Colon cancer screening Special screening for malignant neoplasms, colon Gastroesophageal reflux disease without esophagitis Esophageal reflux documented in this encounter [facility]* Diagnosis Type 2 diabetes mellitus with hyperglycemia, with long-term current use of insulin ([facility])- Primary Carpal tunnel syndrome of left wrist Anxiety state ([facility]) Anxiety state, unspecified documented in this encounter [facility]* Diagnosis Mild episode of recurrent major depressive disorder (HCC) ([facility])- Primary Type 2 diabetes mellitus with microalbuminuria, with long-term current use of insulin ([facility]) JOHN (generalized anxiety disorder) ([facility]) Generalized anxiety disorder Migraine without aura and without status migrainosus, not intractable ([facility]) Irritable bowel syndrome with diarrhea Irritable bowel syndrome Gastroesophageal reflux disease without esophagitis Esophageal reflux Hot flashes due to menopause Morbid obesity ([facility]) 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.4) Obesity hypoventilation syndrome ([facility]/HCC)- Primary Obesity hypoventilation syndrome Hypoxia Hypoxemia Type 2 diabetes mellitus with microalbuminuria, with long-term current use of insulin ([facility]/HCC) Right carpal tunnel syndrome Carpal tunnel syndrome Elevated blood-pressure reading without diagnosis of hypertension Elevated blood pressure reading without diagnosis of hypertension Type 2 diabetes mellitus with hyperglycemia, with long-term current use of insulin ([facility]/HCC)- Primary Mild episode of recurrent major depressive disorder (HCC) ([facility]/HCC) JOHN (generalized anxiety disorder) ([facility]) Generalized anxiety disorder Carpal tunnel syndrome of left wrist Obesity hypoventilation syndrome (CMS/HCC) Obesity hypoventilation syndrome Generalized edema Edema Irritable bowel syndrome with diarrhea Irritable bowel syndrome Gastroesophageal reflux disease without esophagitis Esophageal reflux Anxiety state ([facility]) Anxiety state, unspecified Type 2 diabetes mellitus with hyperglycemia, with long-term current use of insulin ([facility]/HCC)- Primary Right carpal tunnel syndrome Carpal tunnel syndrome Chronic hypoxic respiratory failure ([facility]) Mild episode of recurrent major depressive disorder (HCC) ([facility]) JOHN (generalized anxiety disorder) ([facility]) Generalized anxiety disorder Generalized edema 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 Spondylosis of unspecified site without mention of myelopathy 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 elsewhere ([facility]) Acute pain of right knee- Primary Type 2 diabetes mellitus with microalbuminuria, with long-term current use of insulin ([facility]) Right carpal tunnel syndrome Carpal tunnel syndrome Chronic hypoxic respiratory failure ([facility])- Primary Chronic heart failure with preserved ejection fraction (HFpEF) ([facility]) Type 2 diabetes mellitus with hyperglycemia, with long-term current use of insulin ([facility]) Pulmonary hypertension ([facility]) Other chronic pulmonary heart diseases Colon cancer screening Special screening for malignant neoplasms, colon Gastroesophageal reflux disease without esophagitis Esophageal reflux Carpal tunnel syndrome of left wrist documented in this encounter [facility]* Diagnosis Encounter to discuss test results Other specified counseling documented in this encounter [facility]* Diagnosis Type 2 diabetes mellitus with hyperglycemia, with long-term current use of insulin ([facility])- Primary Right carpal tunnel syndrome Carpal tunnel syndrome Chronic hypoxic respiratory failure ([facility]/HCC) Mild episode of recurrent major depressive disorder (HCC) ([facility]) JOHN (generalized anxiety disorder) ([facility]) Generalized anxiety disorder Generalized edema 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 Spondylosis of unspecified site without mention of myelopathy 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 elsewhere ([facility]) documented in this encounter [facility]* Diagnosis Acute pain of right knee- Primary Type 2 diabetes mellitus with microalbuminuria, with long-term current use of insulin ([facility]) Right carpal tunnel syndrome Carpal tunnel syndrome documented in this encounter [facility]* Diagnosis Right wrist pain Pain in joint, forearm Carpal tunnel syndrome, right Carpal tunnel syndrome documented in this encounter [facility]* Diagnosis Mild episode of recurrent major depressive disorder (HCC) ([facility])- Primary Type 2 diabetes mellitus with microalbuminuria, with long-term current use of insulin ([facility]) JOHN (generalized anxiety disorder) ([facility]) Generalized anxiety disorder Migraine without aura and without status migrainosus, not intractable ([facility]) Irritable bowel syndrome with diarrhea Irritable bowel syndrome Gastroesophageal reflux disease without esophagitis Esophageal reflux Hot flashes due to menopause Morbid obesity ([facility]) 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.4) Obesity hypoventilation syndrome ([facility])- Primary Obesity hypoventilation syndrome Hypoxia Hypoxemia Type 2 diabetes mellitus with microalbuminuria, with long-term current use of insulin ([facility]) Right carpal tunnel syndrome Carpal tunnel syndrome Elevated blood-pressure reading without diagnosis of hypertension Elevated blood pressure reading without diagnosis of hypertension Type 2 diabetes mellitus with hyperglycemia, with long-term current use of insulin ([facility])- Primary Mild episode of recurrent major depressive disorder (HCC) ([facility]) JOHN (generalized anxiety disorder) ([facility]) Generalized anxiety disorder Carpal tunnel syndrome of left wrist Obesity hypoventilation syndrome ([facility]) Obesity hypoventilation syndrome Generalized edema Edema Irritable bowel syndrome with diarrhea Irritable bowel syndrome Gastroesophageal reflux disease without esophagitis Esophageal reflux Anxiety state ([facility]) Anxiety state, unspecified Type 2 diabetes mellitus with hyperglycemia, with long-term current use of insulin ([facility])- Primary Right carpal tunnel syndrome Carpal tunnel syndrome Chronic hypoxic respiratory failure ([facility]) Mild episode of recurrent major depressive disorder (HCC) ([facility]) JOHN (generalized anxiety disorder) ([facility]) Generalized anxiety disorder Generalized edema 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 Spondylosis of unspecified site without mention of myelopathy 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 elsewhere ([facility]/HCC) Acute pain of right knee- Primary Type 2 diabetes mellitus with microalbuminuria, with long-term current use of insulin ([facility]) Right carpal tunnel syndrome Carpal tunnel syndrome Chronic hypoxic respiratory failure ([facility])- Primary Chronic heart failure with preserved ejection fraction (HFpEF) ([facility]) Type 2 diabetes mellitus with hyperglycemia, with long-term current use of insulin ([facility]) Pulmonary hypertension ([facility]) Other chronic pulmonary heart diseases Colon cancer screening Special screening for malignant neoplasms, colon Gastroesophageal reflux disease without esophagitis Esophageal reflux Mild episode of recurrent major depressive disorder (HCC) ([facility]) documented in this encounter [facility]* Diagnosis Mild episode of recurrent major depressive disorder (HCC) ([facility])- Primary Type 2 diabetes mellitus with microalbuminuria, with long-term current use of insulin ([facility]) JOHN (generalized anxiety disorder) ([facility]) Generalized anxiety disorder Migraine without aura and without status migrainosus, not intractable ([facility]) Irritable bowel syndrome with diarrhea Irritable bowel syndrome Gastroesophageal reflux disease without esophagitis Esophageal reflux Hot flashes due to menopause Morbid obesity ([facility]) 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.4) Obesity hypoventilation syndrome ([facility])- Primary Obesity hypoventilation syndrome Hypoxia Hypoxemia Type 2 diabetes mellitus with microalbuminuria, with long-term current use of insulin ([facility]) Right carpal tunnel syndrome Carpal tunnel syndrome Elevated blood-pressure reading without diagnosis of hypertension Elevated blood pressure reading without diagnosis of hypertension Type 2 diabetes mellitus with hyperglycemia, with long-term current use of insulin ([facility])- Primary Mild episode of recurrent major depressive disorder (HCC) ([facility]) JOHN (generalized anxiety disorder) ([facility]) Generalized anxiety disorder Carpal tunnel syndrome of left wrist Obesity hypoventilation syndrome ([facility] Obesity hypoventilation syndrome Generalized edema Edema Irritable bowel syndrome with diarrhea Irritable bowel syndrome Gastroesophageal reflux disease without esophagitis Esophageal reflux Anxiety state ([facility]) Anxiety state, unspecified Type 2 diabetes mellitus with hyperglycemia, with long-term current use of insulin ([facility])- Primary Right carpal tunnel syndrome Carpal tunnel syndrome Chronic hypoxic respiratory failure ([facility]) Mild episode of recurrent major depressive disorder (HCC) ([facility]) JOHN (generalized anxiety disorder) ([facility]) Generalized anxiety disorder Generalized edema 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 Spondylosis of unspecified site without mention of myelopathy 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 elsewhere ([facility]) Acute pain of right knee- Primary Type 2 diabetes mellitus with microalbuminuria, with long-term current use of insulin ([facility]) Right carpal tunnel syndrome Carpal tunnel syndrome Chronic hypoxic respiratory failure ([facility])- Primary Chronic heart failure with preserved ejection fraction (HFpEF) ([facility]) Type 2 diabetes mellitus with hyperglycemia, with long-term current use of insulin ([facility]) Pulmonary hypertension ([facility]) Other chronic pulmonary heart diseases Colon cancer screening Special screening for malignant neoplasms, colon Gastroesophageal reflux disease without esophagitis Esophageal reflux Type 2 diabetes mellitus with microalbuminuria, with long-term current use of insulin ([facility]) documented in this encounter [facility]* Diagnosis Mild episode of recurrent major depressive disorder (HCC) ([facility] [facility])- Primary Type 2 diabetes mellitus with microalbuminuria, with long-term current use of insulin ([facility]) JOHN (generalized anxiety disorder) ([facility]) Generalized anxiety disorder Migraine without aura and without status migrainosus, not intractable ([facility]) Irritable bowel syndrome with diarrhea Irritable bowel syndrome Gastroesophageal reflux disease without esophagitis Esophageal reflux Hot flashes due to menopause Morbid obesity ([facility]) 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.4) Obesity hypoventilation syndrome ([facility])- Primary Obesity hypoventilation syndrome Hypoxia Hypoxemia Type 2 diabetes mellitus with microalbuminuria, with long-term current use of insulin ([facility]) Right carpal tunnel syndrome Carpal tunnel syndrome Elevated blood-pressure reading without diagnosis of hypertension Elevated blood pressure reading without diagnosis of hypertension Type 2 diabetes mellitus with hyperglycemia, with long-term current use of insulin ([facility])- Primary Mild episode of recurrent major depressive disorder (HCC) ([facility]) JOHN (generalized anxiety disorder) ([facility]) Generalized anxiety disorder Carpal tunnel syndrome of left wrist Obesity hypoventilation syndrome ([facility]) Obesity hypoventilation syndrome Generalized edema Edema Irritable bowel syndrome with diarrhea Irritable bowel syndrome Gastroesophageal reflux disease without esophagitis Esophageal reflux Anxiety state ([facility]) Anxiety state, unspecified Type 2 diabetes mellitus with hyperglycemia, with long-term current use of insulin ([facility])- Primary Right carpal tunnel syndrome Carpal tunnel syndrome Chronic hypoxic respiratory failure ([facility]/HCC) Mild episode of recurrent major depressive disorder (HCC) ([facility]/HCC) JOHN (generalized anxiety disorder) ([facility]) Generalized anxiety disorder Generalized edema 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 Spondylosis of unspecified site without mention of myelopathy 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 elsewhere ([facility]) Acute pain of right knee- Primary Type 2 diabetes mellitus with microalbuminuria, with long-term current use of insulin ([facility]) Right carpal tunnel syndrome Carpal tunnel syndrome Chronic hypoxic respiratory failure ([facility]/HCC)- Primary Chronic heart failure with preserved ejection fraction (HFpEF) ([facility]) Type 2 diabetes mellitus with hyperglycemia, with long-term current use of insulin ([facility]) Pulmonary hypertension ([facility]) Other chronic pulmonary heart diseases Colon cancer screening Special screening for malignant neoplasms, colon Gastroesophageal reflux disease without esophagitis Esophageal reflux Type 2 diabetes mellitus with hyperglycemia, with long-term current use of insulin ([facility]) documented in this encounter [facility]* Diagnosis Dyspnea on exertion- Primary Other dyspnea and respiratory abnormality Chronic heart failure with preserved ejection fraction ([facility]-HCC) Type 2 diabetes mellitus with hyperglycemia, with long-term current use of insulin ([facility]) documented in this encounter [facility]* Diagnosis Mild episode of recurrent major depressive disorder (HCC) ([facility])- Primary Type 2 diabetes mellitus with microalbuminuria, with long-term current use of insulin ([facility]) JOHN (generalized anxiety disorder) ([facility]) Generalized anxiety disorder Migraine without aura and without status migrainosus, not intractable ([facility]) Irritable bowel syndrome with diarrhea Irritable bowel syndrome Gastroesophageal reflux disease without esophagitis Esophageal reflux Hot flashes due to menopause Morbid obesity ([facility]) Morbid obesity FPC (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 insulin (Z79.4) Obesity hypoventilation syndrome ([facility])- Primary Obesity hypoventilation syndrome Hypoxia Hypoxemia Type 2 diabetes mellitus with microalbuminuria, with long-term current use of insulin ([facility]) Right carpal tunnel syndrome Carpal tunnel syndrome Elevated blood-pressure reading without diagnosis of hypertension Elevated blood pressure reading without diagnosis of hypertension Type 2 diabetes mellitus with hyperglycemia, with long-term current use of insulin ([facility])- Primary Mild episode of recurrent major depressive disorder (HCC) ([facility]) JOHN (generalized anxiety disorder) ([facility]) Generalized anxiety disorder Carpal tunnel syndrome of left wrist Obesity hypoventilation syndrome ([facility]/HCC) Obesity hypoventilation syndrome Generalized edema Edema Irritable bowel syndrome with diarrhea Irritable bowel syndrome Gastroesophageal reflux disease without esophagitis Esophageal reflux Anxiety state ([facility]) Anxiety state, unspecified Type 2 diabetes mellitus with hyperglycemia, with long-term current use of insulin ([facility])- Primary Right carpal tunnel syndrome Carpal tunnel syndrome Chronic hypoxic respiratory failure ([facility]) Mild episode of recurrent major depressive disorder (HCC) ([facility]) JOHN (generalized anxiety disorder) ([facility]) Generalized anxiety disorder Generalized edema 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 Spondylosis of unspecified site without mention of myelopathy 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 elsewhere ([facility]) Acute pain of right knee- Primary Type 2 diabetes mellitus with microalbuminuria, with long-term current use of insulin ([facility]) Right carpal tunnel syndrome Carpal tunnel syndrome Chronic hypoxic respiratory failure ([facility])- Primary Chronic heart failure with preserved ejection fraction (HFpEF) ([facility]) Type 2 diabetes mellitus with hyperglycemia, with long-term current use of insulin ([facility]) Pulmonary hypertension ([facility]) Other chronic pulmonary heart diseases Colon cancer screening Special screening for malignant neoplasms, colon Gastroesophageal reflux disease without esophagitis Esophageal reflux Diabetic polyneuropathy associated with type 2 diabetes mellitus ([facility])- Primary Neuritis Unspecified neuralgia, neuritis, and radiculitis [facility] Cavitary lesion of lung documented in this encounter [facility]* Diagnosis Mediastinal lymphadenopathy- Primary Enlargement of lymph nodes documented in this encounter [facility]* Diagnosis Mediastinal lymphadenopathy- Primary Enlargement of lymph nodes Pulmonary nodule Other diseases of lung, not elsewhere classified Morbid obesity ([facility]) Morbid obesity documented in this encounter [facility]* Diagnosis Type 2 diabetes mellitus with hyperglycemia, with long-term current use of insulin ([facility])- Primary Hyperglycemia Other abnormal glucose Acute cystitis without hematuria Hypoxia Hypoxemia Hyperglycemia Other abnormal glucose Obstructive sleep apnea syndrome Obstructive sleep apnea (adult) (pediatric) Severe obesity (BMI >= 40) ([facility]) Hyperlipidemia associated with type 2 diabetes mellitus ([facility]) Acute cystitis without hematuria documented in this encounter [facility]* Diagnosis Chronic hypoxic respiratory failure ([facility])- Primary Obstructive sleep apnea syndrome Obstructive sleep apnea (adult) (pediatric) Pulmonary nodule Other diseases of lung, not elsewhere classified Moderate persistent asthma without complication documented in this encounter [facility]* Diagnosis Moderate persistent asthma without complication documented in this encounter [facility]* Diagnosis Mediastinal lymphadenopathy- Primary Enlargement of lymph nodes Hypoxia Hypoxemia Pulmonary nodule Other diseases of lung, not elsewhere classified Severe obesity (BMI >= 40) ([facility]) Dyspnea on exertion Other dyspnea and respiratory abnormality [facility] Diagnosis Dyspnea on exertion- Primary Other dyspnea and respiratory abnormality Chronic hypoxic respiratory failure ([facility]) Moderate persistent asthma without complication documented in this encounter [facility]* Diagnosis Chronic hypoxic respiratory failure ([facility])- Primary SOB (shortness of breath) Shortness of breath Hypoxia Hypoxemia documented in this encounter [facility]* Diagnosis JOSE M (obstructive sleep apnea)- Primary Obstructive sleep apnea (adult) (pediatric) Chronic hypoxic respiratory failure ([facility]) Severe obesity (BMI >= 40) ([facility]) documented in this encounter [facility]* Diagnosis Chronic hypoxic respiratory failure ([facility])- Primary SOB (shortness of breath) Shortness of breath Hypoxia Hypoxemia documented in this encounter [facility]* Diagnosis Moderate persistent asthma without complication- Primary Obstructive sleep apnea syndrome Obstructive sleep apnea (adult) (pediatric) Pulmonary nodule Other diseases of lung, not elsewhere classified Chronic hypoxic respiratory failure ([facility]) documented in this encounter [facility]* Diagnosis Dyspnea on exertion- Primary Other dyspnea and respiratory abnormality Pulmonary hypertension ([facility]) Other chronic pulmonary heart diseases documented in this encounter [facility]* Diagnosis JOSE M (obstructive sleep apnea) Obstructive sleep apnea (adult) (pediatric) Chronic hypoxic respiratory failure ([facility]) Severe obesity (BMI >= 40) ([facility]) documented in this encounter [facility]* Diagnosis Mild episode of recurrent major depressive disorder (HCC) ([facility])- Primary Type 2 diabetes mellitus with microalbuminuria, with long-term current use of insulin ([facility]) JOHN (generalized anxiety disorder) ([facility]) Generalized anxiety disorder Migraine without aura and without status migrainosus, not intractable ([facility]) Irritable bowel syndrome with diarrhea Irritable bowel syndrome Gastroesophageal reflux disease without esophagitis Esophageal reflux Hot flashes due to menopause Morbid obesity ([facility]) 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.4) Obesity hypoventilation syndrome ([facility]/HCC)- Primary Obesity hypoventilation syndrome Hypoxia Hypoxemia Type 2 diabetes mellitus with microalbuminuria, with long-term current use of insulin ([facility]) Right carpal tunnel syndrome Carpal tunnel syndrome Elevated blood-pressure reading without diagnosis of hypertension Elevated blood pressure reading without diagnosis of hypertension Type 2 diabetes mellitus with hyperglycemia, with long-term current use of insulin ([facility])- Primary Mild episode of recurrent major depressive disorder (HCC) ([facility]) JOHN (generalized anxiety disorder) ([facility]) Generalized anxiety disorder Carpal tunnel syndrome of left wrist Obesity hypoventilation syndrome ([facility]) Obesity hypoventilation syndrome Generalized edema Edema Irritable bowel syndrome with diarrhea Irritable bowel syndrome Gastroesophageal reflux disease without esophagitis Esophageal reflux Anxiety state ([facility]) Anxiety state, unspecified Type 2 diabetes mellitus with hyperglycemia, with long-term current use of insulin ([facility])- Primary Right carpal tunnel syndrome Carpal tunnel syndrome Chronic hypoxic respiratory failure ([facility]) Mild episode of recurrent major depressive disorder (HCC) ([facility]) JOHN (generalized anxiety disorder) ([facility]) Generalized anxiety disorder Generalized edema 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 Spondylosis of unspecified site without mention of myelopathy 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 elsewhere ([facility]) Acute pain of right knee- Primary Type 2 diabetes mellitus with microalbuminuria, with long-term current use of insulin ([facility]) Right carpal tunnel syndrome Carpal tunnel syndrome Chronic hypoxic respiratory failure ([facility])- Primary Chronic heart failure with preserved ejection fraction (HFpEF) ([facility]) Type 2 diabetes mellitus with hyperglycemia, with long-term current use of insulin ([facility]) Pulmonary hypertension ([facility]) Other chronic pulmonary heart diseases Colon cancer screening Special screening for malignant neoplasms, colon Gastroesophageal reflux disease without esophagitis Esophageal reflux Dehydration- Primary Nausea and vomiting, unspecified vomiting type Type 2 diabetes mellitus with hyperglycemia, with long-term current use of insulin ([facility]) Class 3 severe obesity due to excess calories with serious comorbidity and body mass index (BMI) of 40.0 to 44.9 in adult (CMS/HCC) Chronic hypoxic respiratory failure (CMS/HCC) Chronic heart failure with preserved ejection fraction (HFpEF) (CMS/HCC) documented in this encounter [facility]* Diagnosis Mild episode of recurrent major depressive disorder (HCC) (CMS/HCC)- Primary Type 2 diabetes mellitus with microalbuminuria, with long-term current use of insulin (CMS/HCC) JOHN (generalized anxiety disorder) ([facility]) Generalized anxiety disorder Migraine without aura and without status migrainosus, not intractable (CMS/HCC) Irritable bowel syndrome with diarrhea Irritable bowel syndrome Gastroesophageal reflux disease without esophagitis Esophageal reflux Hot flashes due to menopause Morbid obesity (CMS/HCC) 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.4) Obesity hypoventilation syndrome ([facility])- Primary Obesity hypoventilation syndrome Hypoxia Hypoxemia Type 2 diabetes mellitus with microalbuminuria, with long-term current use of insulin ([facility]) Right carpal tunnel syndrome Carpal tunnel syndrome Elevated blood-pressure reading without diagnosis of hypertension Elevated blood pressure reading without diagnosis of hypertension Type 2 diabetes mellitus with hyperglycemia, with long-term current use of insulin ([facility])- Primary Mild episode of recurrent major depressive disorder (HCC) (CMS/HCC) JOHN (generalized anxiety disorder) ([facility]) Generalized anxiety disorder Carpal tunnel syndrome of left wrist Obesity hypoventilation syndrome ([facility]/HCC) Obesity hypoventilation syndrome Generalized edema Edema Irritable bowel syndrome with diarrhea Irritable bowel syndrome Gastroesophageal reflux disease without esophagitis Esophageal reflux Anxiety state ([facility]) Anxiety state, unspecified Type 2 diabetes mellitus with hyperglycemia, with long-term current use of insulin ([facility])- Primary Right carpal tunnel syndrome Carpal tunnel syndrome Chronic hypoxic respiratory failure ([facility]) Mild episode of recurrent major depressive disorder (HCC) ([facility]/HCC) JOHN (generalized anxiety disorder) ([facility]) Generalized anxiety disorder Generalized edema 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 Spondylosis of unspecified site without mention of myelopathy 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 elsewhere ([facility]) Acute pain of right knee- Primary Type 2 diabetes mellitus with microalbuminuria, with long-term current use of insulin ([facility]) Right carpal tunnel syndrome Carpal tunnel syndrome Chronic hypoxic respiratory failure ([facility])- Primary Chronic heart failure with preserved ejection fraction (HFpEF) ([facility]) Type 2 diabetes mellitus with hyperglycemia, with long-term current use of insulin ([facility]) Pulmonary hypertension ([facility]) Other chronic pulmonary heart diseases Colon cancer screening Special screening for malignant neoplasms, colon Gastroesophageal reflux disease without esophagitis Esophageal reflux Dehydration- Primary Nausea and vomiting, unspecified vomiting type Type 2 diabetes mellitus with hyperglycemia, with long-term current use of insulin ([facility]) Class 3 severe obesity due to excess calories with serious comorbidity and body mass index (BMI) of 40.0 to 44.9 in adult ([facility]) Chronic hypoxic respiratory failure ([facility]) Chronic heart failure with preserved ejection fraction (HFpEF) ([facility]) Type 2 diabetes mellitus with hyperglycemia, with long-term current use of insulin ([facility])- Primary Chronic heart failure with preserved ejection fraction (HFpEF) ([facility]) Mild episode of recurrent major depressive disorder (HCC) ([facility]) JOHN (generalized anxiety disorder) ([facility]) Generalized anxiety disorder Gastroesophageal reflux disease without esophagitis Esophageal reflux Class 3 severe obesity due to excess calories with serious comorbidity and body mass index (BMI) of 40.0 to 44.9 in adult ([facility]) documented in this encounter [facility]* Diagnosis Obstructive sleep apnea syndrome- Primary Obstructive sleep apnea (adult) (pediatric) Noncompliance with CPAP treatment Chronic hypoxic respiratory failure, on home oxygen therapy ([facility]) Obesity, Class III, BMI 40-49.9 (morbid obesity) ([facility]) documented in this encounter [facility]* Diagnosis Chronic heart failure with preserved ejection fraction ([facility])- Primary Primary hypertension Unspecified essential hypertension Dyspnea on exertion Other dyspnea and respiratory abnormality Hyperlipidemia associated with type 2 diabetes mellitus ([facility]) documented in this encounter [facility]* Diagnosis Mild episode of recurrent major depressive disorder (HCC) ([facility])- Primary Type 2 diabetes mellitus with microalbuminuria, with long-term current use of insulin ([facility]) JOHN (generalized anxiety disorder) ([facility]) Generalized anxiety disorder Migraine without aura and without status migrainosus, not intractable ([facility] [facility] Irritable bowel syndrome with diarrhea Irritable bowel syndrome Gastroesophageal reflux disease without esophagitis Esophageal reflux Hot flashes due to menopause Morbid obesity ([facility]) 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.4) Obesity hypoventilation syndrome (CMS/HCC)- Primary Obesity hypoventilation syndrome Hypoxia Hypoxemia Type 2 diabetes mellitus with microalbuminuria, with long-term current use of insulin ([facility]) Right carpal tunnel syndrome Carpal tunnel syndrome Elevated blood-pressure reading without diagnosis of hypertension Elevated blood pressure reading without diagnosis of hypertension Type 2 diabetes mellitus with hyperglycemia, with long-term current use of insulin ([facility])- Primary Mild episode of recurrent major depressive disorder (HCC) ([facility]) JOHN (generalized anxiety disorder) ([facility]) Generalized anxiety disorder Carpal tunnel syndrome of left wrist Obesity hypoventilation syndrome ([facility]/HCC) Obesity hypoventilation syndrome Generalized edema Edema Irritable bowel syndrome with diarrhea Irritable bowel syndrome Gastroesophageal reflux disease without esophagitis Esophageal reflux Anxiety state ([facility]) Anxiety state, unspecified Type 2 diabetes mellitus with hyperglycemia, with long-term current use of insulin ([facility])- Primary Right carpal tunnel syndrome Carpal tunnel syndrome Chronic hypoxic respiratory failure ([facility]) Mild episode of recurrent major depressive disorder (HCC) ([facility]) JOHN (generalized anxiety disorder) ([facility]) Generalized anxiety disorder Generalized edema 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 Spondylosis of unspecified site without mention of myelopathy 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 elsewhere ([facility]) Acute pain of right knee- Primary Type 2 diabetes mellitus with microalbuminuria, with long-term current use of insulin ([facility]) Right carpal tunnel syndrome Carpal tunnel syndrome Chronic hypoxic respiratory failure ([facility])- Primary Chronic heart failure with preserved ejection fraction (HFpEF) ([facility]) Type 2 diabetes mellitus with hyperglycemia, with long-term current use of insulin ([facility]) Pulmonary hypertension ([facility]) Other chronic pulmonary heart diseases Colon cancer screening Special screening for malignant neoplasms, colon Gastroesophageal reflux disease without esophagitis Esophageal reflux Dehydration- Primary Nausea and vomiting, unspecified vomiting type Type 2 diabetes mellitus with hyperglycemia, with long-term current use of insulin ([facility]) Class 3 severe obesity due to excess calories with serious comorbidity and body mass index (BMI) of 40.0 to 44.9 in adult Chronic hypoxic respiratory failure ([facility]) Chronic heart failure with preserved ejection fraction (HFpEF) ([facility]) Type 2 diabetes mellitus with hyperglycemia, with long-term current use of insulin ([facility])- Primary Chronic heart failure with preserved ejection fraction (HFpEF) ([facility]) Mild episode of recurrent major depressive disorder (HCC) ([facility]) JOHN (generalized anxiety disorder) ([facility]) Generalized anxiety disorder Gastroesophageal reflux disease without esophagitis Esophageal reflux Class 3 severe obesity due to excess calories with serious comorbidity and body mass index (BMI) of 40.0 to 44.9 in adult Type 2 diabetes mellitus with hyperglycemia, with long-term current use of insulin ([facility])- Primary Benign essential hypertension ([facility]) Essential hypertension, benign Mild episode of recurrent major depressive disorder (HCC) ([facility]) JOHN (generalized anxiety disorder) ([facility]) Generalized anxiety disorder Chronic heart failure with preserved ejection fraction (HFpEF) ([facility]) Type 2 diabetes mellitus with microalbuminuria, with long-term current use of insulin ([facility]) Class 3 severe obesity due to excess calories with serious comorbidity and body mass index (BMI) of 40.0 to 44.9 in adult Encounter for long-term (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 medications Encounter for long-term (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 other medications Dyslipidemia ([facility]) Other and unspecified hyperlipidemia Primary osteoarthritis of both knees documented in this encounter [facility]* Diagnosis Mild episode of recurrent major depressive disorder- Primary Type 2 diabetes mellitus with microalbuminuria, with long-term current use of insulin ([facility]) JOHN (generalized anxiety disorder) Generalized anxiety disorder Migraine without aura and without status migrainosus, not intractable Irritable bowel syndrome with diarrhea Irritable bowel syndrome Gastroesophageal reflux disease without esophagitis Esophageal reflux Hot flashes due to menopause Morbid obesity ([facility]) 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.4) Obesity hypoventilation syndrome ([facility])- Primary Obesity hypoventilation syndrome Hypoxia Hypoxemia Type 2 diabetes mellitus with microalbuminuria, with long-term current use of insulin ([facility]) Right carpal tunnel syndrome Carpal tunnel syndrome Elevated blood-pressure reading without diagnosis of hypertension Elevated blood pressure reading without diagnosis of hypertension Type 2 diabetes mellitus with hyperglycemia, with long-term current use of insulin ([facility])- Primary Mild episode of recurrent major depressive disorder JOHN (generalized anxiety disorder) Generalized anxiety disorder Carpal tunnel syndrome of left wrist Obesity hypoventilation syndrome ([facility]) Obesity hypoventilation syndrome Generalized edema Edema Irritable bowel syndrome with diarrhea Irritable bowel syndrome Gastroesophageal reflux disease without esophagitis Esophageal reflux Anxiety state Anxiety state, unspecified Type 2 diabetes mellitus with hyperglycemia, with long-term current use of insulin ([facility])- Primary Right carpal tunnel syndrome Carpal tunnel syndrome Chronic hypoxic respiratory failure ([facility]) Mild episode of recurrent major depressive disorder JOHN (generalized anxiety disorder) Generalized anxiety disorder Generalized edema 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 Spondylosis of unspecified site without mention of myelopathy 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 elsewhere ([facility]) Acute pain of right knee- Primary Type 2 diabetes mellitus with microalbuminuria, with long-term current use of insulin ([facility]) Right carpal tunnel syndrome Carpal tunnel syndrome Chronic hypoxic respiratory failure ([facility])- Primary Chronic heart failure with preserved ejection fraction (HFpEF) ([facility]) Type 2 diabetes mellitus with hyperglycemia, with long-term current use of insulin ([facility]) Pulmonary hypertension ([facility]) Other chronic pulmonary heart diseases Colon cancer screening Special screening for malignant neoplasms, colon Gastroesophageal reflux disease without esophagitis Esophageal reflux Dehydration- Primary Nausea and vomiting, unspecified vomiting type Type 2 diabetes mellitus with hyperglycemia, with long-term current use of insulin ([facility]) Class 3 severe obesity due to excess calories with serious comorbidity and body mass index (BMI) of 40.0 to 44.9 in adult ([facility]) Chronic hypoxic respiratory failure ([facility]) Chronic heart failure with preserved ejection fraction (HFpEF) ([facility]) Type 2 diabetes mellitus with hyperglycemia, with long-term current use of insulin ([facility])- Primary Chronic heart failure with preserved ejection fraction (HFpEF) ([facility]) Mild episode of recurrent major depressive disorder JOHN (generalized anxiety disorder) Generalized anxiety disorder Gastroesophageal reflux disease without esophagitis Esophageal reflux Class 3 severe obesity due to excess calories with serious comorbidity and body mass index (BMI) of 40.0 to 44.9 in adult ([facility]) Type 2 diabetes mellitus with hyperglycemia, with long-term current use of insulin ([facility])- Primary Benign essential hypertension Essential hypertension, benign Mild episode of recurrent major depressive disorder JOHN (generalized anxiety disorder) Generalized anxiety disorder Chronic heart failure with preserved ejection fraction (HFpEF) ([facility]) Type 2 diabetes mellitus with microalbuminuria, with long-term current use of insulin ([facility]) Class 3 severe obesity due to excess calories with serious comorbidity and body mass index (BMI) of 40.0 to 44.9 in adult ([facility]) Encounter for long-term (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 medications Encounter for long-term (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 other medications Dyslipidemia Other and unspecified hyperlipidemia Primary osteoarthritis of both knees Internal derangement of left knee- Primary Acute pain of left knee documented in this encounter [facility]* Diagnosis Type 2 diabetes mellitus with hyperglycemia, with long-term current use of insulin ([facility])- Primary [facility] Diagnosis Moderate persistent asthma without complication- Primary Chronic hypoxic respiratory failure ([facility]) documented in this encounter [facility]* Diagnosis Mild episode of recurrent major depressive disorder- Primary Type 2 diabetes mellitus with microalbuminuria, with long-term current use of insulin ([facility]) JOHN (generalized anxiety disorder) Generalized anxiety disorder Migraine without aura and without status migrainosus, not intractable Irritable bowel syndrome with diarrhea Irritable bowel syndrome Gastroesophageal reflux disease without esophagitis Esophageal reflux Hot flashes due to menopause Morbid obesity ([facility]) Morbid obesity 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 (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 insulin (Z79.4) Obesity hypoventilation syndrome ([facility])- Primary Obesity hypoventilation syndrome Hypoxia Hypoxemia Type 2 diabetes mellitus with microalbuminuria, with long-term current use of insulin ([facility]) Right carpal tunnel syndrome Carpal tunnel syndrome Elevated blood-pressure reading without diagnosis of hypertension Elevated blood pressure reading without diagnosis of hypertension Type 2 diabetes mellitus with hyperglycemia, with long-term current use of insulin (HCC)- Primary Mild episode of recurrent major depressive disorder JOHN (generalized anxiety disorder) Generalized anxiety disorder Carpal tunnel syndrome of left wrist Obesity hypoventilation syndrome ([facility]) Obesity hypoventilation syndrome Generalized edema Edema Irritable bowel syndrome with diarrhea Irritable bowel syndrome Gastroesophageal reflux disease without esophagitis Esophageal reflux Anxiety state Anxiety state, unspecified Type 2 diabetes mellitus with hyperglycemia, with long-term current use of insulin (HCC)- Primary Right carpal tunnel syndrome Carpal tunnel syndrome Chronic hypoxic respiratory failure (HCC) Mild episode of recurrent major depressive disorder JOHN (generalized anxiety disorder) Generalized anxiety disorder Generalized edema 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 Spondylosis of unspecified site without mention of myelopathy 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 elsewhere (HCC) Acute pain of right knee- Primary Type 2 diabetes mellitus with microalbuminuria, with long-term current use of insulin (HCC) Right carpal tunnel syndrome Carpal tunnel syndrome Chronic hypoxic respiratory failure (HCC)- Primary Chronic heart failure with preserved ejection fraction (HFpEF) ([facility]) Type 2 diabetes mellitus with hyperglycemia, with long-term current use of insulin (HCC) Pulmonary hypertension (HCC) Other chronic pulmonary heart diseases Colon cancer screening Special screening for malignant neoplasms, colon Gastroesophageal reflux disease without esophagitis Esophageal reflux Dehydration- Primary Nausea and vomiting, unspecified vomiting type Type 2 diabetes mellitus with hyperglycemia, with long-term current use of insulin ([facility]) Class 3 severe obesity due to excess calories with serious comorbidity and body mass index (BMI) of 40.0 to 44.9 in adult ([facility]) Chronic hypoxic respiratory failure ([facility]) Chronic heart failure with preserved ejection fraction (HFpEF) ([facility]) Type 2 diabetes mellitus with hyperglycemia, with long-term current use of insulin ([facility])- Primary Chronic heart failure with preserved ejection fraction (HFpEF) ([facility]) Mild episode of recurrent major depressive disorder JOHN (generalized anxiety disorder) Generalized anxiety disorder Gastroesophageal reflux disease without esophagitis Esophageal reflux Class 3 severe obesity due to excess calories with serious comorbidity and body mass index (BMI) of 40.0 to 44.9 in adult ([facility]) Type 2 diabetes mellitus with hyperglycemia, with long-term current use of insulin ([facility])- Primary Benign essential hypertension Essential hypertension, benign Mild episode of recurrent major depressive disorder JOHN (generalized anxiety disorder) Generalized anxiety disorder Chronic heart failure with preserved ejection fraction (HFpEF) ([facility]) Type 2 diabetes mellitus with microalbuminuria, with long-term current use of insulin ([facility]) Class 3 severe obesity due to excess calories with serious comorbidity and body mass index (BMI) of 40.0 to 44.9 in adult ([facility]) Encounter for long-term (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 medications Encounter for long-term (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 other medications Dyslipidemia Other and unspecified hyperlipidemia Primary osteoarthritis of both knees Genital warts Condyloma acuminatum documented in this encounter [facility]* Diagnosis Mild episode of recurrent major depressive disorder- Primary Type 2 diabetes mellitus with microalbuminuria, with long-term current use of insulin ([facility]) JOHN (generalized anxiety disorder) Generalized anxiety disorder Migraine without aura and without status migrainosus, not intractable Irritable bowel syndrome with diarrhea Irritable bowel syndrome Gastroesophageal reflux disease without esophagitis Esophageal reflux Hot flashes due to menopause Morbid obesity ([facility]) 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.4) Obesity hypoventilation syndrome ([facility])- Primary Obesity hypoventilation syndrome Hypoxia Hypoxemia Type 2 diabetes mellitus with microalbuminuria, with long-term current use of insulin ([facility]) Right carpal tunnel syndrome Carpal tunnel syndrome Elevated blood-pressure reading without diagnosis of hypertension Elevated blood pressure reading without diagnosis of hypertension Type 2 diabetes mellitus with hyperglycemia, with long-term current use of insulin ([facility])- Primary Mild episode of recurrent major depressive disorder JOHN (generalized anxiety disorder) Generalized anxiety disorder Carpal tunnel syndrome of left wrist Obesity hypoventilation syndrome ([facility]) Obesity hypoventilation syndrome Generalized edema Edema Irritable bowel syndrome with diarrhea Irritable bowel syndrome Gastroesophageal reflux disease without esophagitis Esophageal reflux Anxiety state Anxiety state, unspecified Type 2 diabetes mellitus with hyperglycemia, with long-term current use of insulin ([facility])- Primary Right carpal tunnel syndrome Carpal tunnel syndrome Chronic hypoxic respiratory failure (HCC) Mild episode of recurrent major depressive disorder JOHN (generalized anxiety disorder) Generalized anxiety disorder Generalized edema 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 Spondylosis of unspecified site without mention of myelopathy 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 elsewhere ([facility]) Acute pain of right knee- Primary Type 2 diabetes mellitus with microalbuminuria, with long-term current use of insulin ([facility]) Right carpal tunnel syndrome Carpal tunnel syndrome Chronic hypoxic respiratory failure ([facility])- Primary Chronic heart failure with preserved ejection fraction (HFpEF) ([facility]) Type 2 diabetes mellitus with hyperglycemia, with long-term current use of insulin ([facility]) Pulmonary hypertension ([facility]) Other chronic pulmonary heart diseases Colon cancer screening Special screening for malignant neoplasms, colon Gastroesophageal reflux disease without esophagitis Esophageal reflux Dehydration- Primary Nausea and vomiting, unspecified vomiting type Type 2 diabetes mellitus with hyperglycemia, with long-term current use of insulin ([facility]) Class 3 severe obesity due to excess calories with serious comorbidity and body mass index (BMI) of 40.0 to 44.9 in adult ([facility]) Chronic hypoxic respiratory failure ([facility]) Chronic heart failure with preserved ejection fraction (HFpEF) ([facility]) Type 2 diabetes mellitus with hyperglycemia, with long-term current use of insulin ([facility])- Primary Chronic heart failure with preserved ejection fraction (HFpEF) ([facility]) Mild episode of recurrent major depressive disorder JOHN (generalized anxiety disorder) Generalized anxiety disorder Gastroesophageal reflux disease without esophagitis Esophageal reflux Class 3 severe obesity due to excess calories with serious comorbidity and body mass index (BMI) of 40.0 to 44.9 in adult ([facility]) Type 2 diabetes mellitus with hyperglycemia, with long-term current use of insulin ([facility])- Primary Benign essential hypertension Essential hypertension, benign Mild episode of recurrent major depressive disorder JOHN (generalized anxiety disorder) Generalized anxiety disorder Chronic heart failure with preserved ejection fraction (HFpEF) ([facility]) Type 2 diabetes mellitus with microalbuminuria, with long-term current use of insulin ([facility]) Class 3 severe obesity due to excess calories with serious comorbidity and body mass index (BMI) of 40.0 to 44.9 in adult ([facility]) Encounter for long-term (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 medications Encounter for long-term (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 other medications Dyslipidemia Other and unspecified hyperlipidemia Primary osteoarthritis of both knees Acute pain of left knee- Primary documented in this encounter [facility]* Diagnosis Mild episode of recurrent major depressive disorder- Primary Type 2 diabetes mellitus with microalbuminuria, with long-term current use of insulin ([facility]) JOHN (generalized anxiety disorder) Generalized anxiety disorder Migraine without aura and without status migrainosus, not intractable Irritable bowel syndrome with diarrhea Irritable bowel syndrome Gastroesophageal reflux disease without esophagitis Esophageal reflux Hot flashes due to menopause Morbid obesity ([facility]) 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.4) Obesity hypoventilation syndrome ([facility])- Primary Obesity hypoventilation syndrome Hypoxia Hypoxemia Type 2 diabetes mellitus with microalbuminuria, with long-term current use of insulin ([facility]) Right carpal tunnel syndrome Carpal tunnel syndrome Elevated blood-pressure reading without diagnosis of hypertension Elevated blood pressure reading without diagnosis of hypertension Type 2 diabetes mellitus with hyperglycemia, with long-term current use of insulin ([facility])- Primary Mild episode of recurrent major depressive disorder JOHN (generalized anxiety disorder) Generalized anxiety disorder Carpal tunnel syndrome of left wrist Obesity hypoventilation syndrome ([facility]) Obesity hypoventilation syndrome Generalized edema Edema Irritable bowel syndrome with diarrhea Irritable bowel syndrome Gastroesophageal reflux disease without esophagitis Esophageal reflux Anxiety state Anxiety state, unspecified Type 2 diabetes mellitus with hyperglycemia, with long-term current use of insulin ([facility])- Primary Right carpal tunnel syndrome Carpal tunnel syndrome Chronic hypoxic respiratory failure ([facility]) Mild episode of recurrent major depressive disorder JOHN (generalized anxiety disorder) Generalized anxiety disorder Generalized edema 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 Spondylosis of unspecified site without mention of myelopathy 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 elsewhere ([facility]) Acute pain of right knee- Primary Type 2 diabetes mellitus with microalbuminuria, with long-term current use of insulin ([facility]) Right carpal tunnel syndrome Carpal tunnel syndrome Chronic hypoxic respiratory failure ([facility])- Primary Chronic heart failure with preserved ejection fraction (HFpEF) ([facility]) Type 2 diabetes mellitus with hyperglycemia, with long-term current use of insulin ([facility]) Pulmonary hypertension ([facility]) Other chronic pulmonary heart diseases Colon cancer screening Special screening for malignant neoplasms, colon Gastroesophageal reflux disease without esophagitis Esophageal reflux Dehydration- Primary Nausea and vomiting, unspecified vomiting type Type 2 diabetes mellitus with hyperglycemia, with long-term current use of insulin ([facility]) Class 3 severe obesity due to excess calories with serious comorbidity and body mass index (BMI) of 40.0 to 44.9 in adult ([facility]) Chronic hypoxic respiratory failure ([facility]) Chronic heart failure with preserved ejection fraction (HFpEF) ([facility]) Type 2 diabetes mellitus with hyperglycemia, with long-term current use of insulin ([facility])- Primary Chronic heart failure with preserved ejection fraction (HFpEF) ([facility]) Mild episode of recurrent major depressive disorder JOHN (generalized anxiety disorder) Generalized anxiety disorder Gastroesophageal reflux disease without esophagitis Esophageal reflux Class 3 severe obesity due to excess calories with serious comorbidity and body mass index (BMI) of 40.0 to 44.9 in adult ([facility]) Type 2 diabetes mellitus with hyperglycemia, with long-term current use of insulin ([facility])- Primary Benign essential hypertension Essential hypertension, benign Mild episode of recurrent major depressive disorder JOHN (generalized anxiety disorder) Generalized anxiety disorder Chronic heart failure with preserved ejection fraction (HFpEF) ([facility]) Type 2 diabetes mellitus with microalbuminuria, with long-term current use of insulin ([facility]) Class 3 severe obesity due to excess calories with serious comorbidity and body mass index (BMI) of 40.0 to 44.9 in adult ([facility]) Encounter for long-term (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 medications Encounter for long-term (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 other medications Dyslipidemia Other and unspecified hyperlipidemia Primary osteoarthritis of both knees Acute medial meniscus tear of left knee, initial encounter- Primary Acute pain of left knee documented in this encounter [facility]* Diagnosis Mild episode of recurrent major depressive disorder- Primary Type 2 diabetes mellitus with microalbuminuria, with long-term current use of insulin ([facility]) JOHN (generalized anxiety disorder) Generalized anxiety disorder Migraine without aura and without status migrainosus, not intractable Irritable bowel syndrome with diarrhea Irritable bowel syndrome Gastroesophageal reflux disease without esophagitis Esophageal reflux Hot flashes due to menopause Morbid obesity ([facility]) Morbid obesity FPC (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 insulin (Z79.4) Obesity hypoventilation syndrome ([facility])- Primary Obesity hypoventilation syndrome Hypoxia Hypoxemia Type 2 diabetes mellitus with microalbuminuria, with long-term current use of insulin (HCC) Right carpal tunnel syndrome Carpal tunnel syndrome Elevated blood-pressure reading without diagnosis of hypertension Elevated blood pressure reading without diagnosis of hypertension Type 2 diabetes mellitus with hyperglycemia, with long-term current use of insulin ([facility])- Primary Mild episode of recurrent major depressive disorder JOHN (generalized anxiety disorder) Generalized anxiety disorder Carpal tunnel syndrome of left wrist Obesity hypoventilation syndrome ([facility]) Obesity hypoventilation syndrome Generalized edema Edema Irritable bowel syndrome with diarrhea Irritable bowel syndrome Gastroesophageal reflux disease without esophagitis Esophageal reflux Anxiety state Anxiety state, unspecified Type 2 diabetes mellitus with hyperglycemia, with long-term current use of insulin ([facility])- Primary Right carpal tunnel syndrome Carpal tunnel syndrome Chronic hypoxic respiratory failure (HCC) Mild episode of recurrent major depressive disorder JOHN (generalized anxiety disorder) Generalized anxiety disorder Generalized edema 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 Spondylosis of unspecified site without mention of myelopathy 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 elsewhere ([facility]) Acute pain of right knee- Primary Type 2 diabetes mellitus with microalbuminuria, with long-term current use of insulin ([facility]) Right carpal tunnel syndrome Carpal tunnel syndrome Chronic hypoxic respiratory failure ([facility])- Primary Chronic heart failure with preserved ejection fraction (HFpEF) ([facility]) Type 2 diabetes mellitus with hyperglycemia, with long-term current use of insulin ([facility]) Pulmonary hypertension ([facility]) Other chronic pulmonary heart diseases Colon cancer screening Special screening for malignant neoplasms, colon Gastroesophageal reflux disease without esophagitis Esophageal reflux Dehydration- Primary Nausea and vomiting, unspecified vomiting type Type 2 diabetes mellitus with hyperglycemia, with long-term current use of insulin ([facility]) Class 3 severe obesity due to excess calories with serious comorbidity and body mass index (BMI) of 40.0 to 44.9 in adult ([facility]) Chronic hypoxic respiratory failure (HCC) Chronic heart failure with preserved ejection fraction (HFpEF) ([facility]) Type 2 diabetes mellitus with hyperglycemia, with long-term current use of insulin ([facility])- Primary Chronic heart failure with preserved ejection fraction (HFpEF) ([facility]) Mild episode of recurrent major depressive disorder JOHN (generalized anxiety disorder) Generalized anxiety disorder Gastroesophageal reflux disease without esophagitis Esophageal reflux Class 3 severe obesity due to excess calories with serious comorbidity and body mass index (BMI) of 40.0 to 44.9 in adult ([facility] [place]) Type 2 diabetes mellitus with hyperglycemia, with long-term current use of insulin ([facility])- Primary Benign essential hypertension Essential hypertension, benign Mild episode of recurrent major depressive disorder JOHN (generalized anxiety disorder) Generalized anxiety disorder Chronic heart failure with preserved ejection fraction (HFpEF) ([facility]) Type 2 diabetes mellitus with microalbuminuria, with long-term current use of insulin ([facility]) Class 3 severe obesity due to excess calories with serious comorbidity and body mass index (BMI) of 40.0 to 44.9 in adult ([facility]) Encounter for long-term (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 medications Encounter for long-term (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 other medications Dyslipidemia Other and unspecified hyperlipidemia Primary osteoarthritis of both knees Acute pain of left knee- Primary documented in this encounter [facility]* Diagnosis Mild episode of recurrent major depressive disorder- Primary Type 2 diabetes mellitus with microalbuminuria, with long-term current use of insulin ([facility]) JOHN (generalized anxiety disorder) Generalized anxiety disorder Migraine without aura and without status migrainosus, not intractable Irritable bowel syndrome with diarrhea Irritable bowel syndrome Gastroesophageal reflux disease without esophagitis Esophageal reflux Hot flashes due to menopause Morbid obesity ([facility]) 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.4) Obesity hypoventilation syndrome ([facility])- Primary Obesity hypoventilation syndrome Hypoxia Hypoxemia Type 2 diabetes mellitus with microalbuminuria, with long-term current use of insulin ([facility]) Right carpal tunnel syndrome Carpal tunnel syndrome Elevated blood-pressure reading without diagnosis of hypertension Elevated blood pressure reading without diagnosis of hypertension Type 2 diabetes mellitus with hyperglycemia, with long-term current use of insulin ([facility])- Primary Mild episode of recurrent major depressive disorder JOHN (generalized anxiety disorder) Generalized anxiety disorder Carpal tunnel syndrome of left wrist Obesity hypoventilation syndrome ([facility]) Obesity hypoventilation syndrome Generalized edema Edema Irritable bowel syndrome with diarrhea Irritable bowel syndrome Gastroesophageal reflux disease without esophagitis Esophageal reflux Anxiety state Anxiety state, unspecified Type 2 diabetes mellitus with hyperglycemia, with long-term current use of insulin ([facility])- Primary Right carpal tunnel syndrome Carpal tunnel syndrome Chronic hypoxic respiratory failure ([facility]) Mild episode of recurrent major depressive disorder JOHN (generalized anxiety disorder) Generalized anxiety disorder Generalized edema 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 Spondylosis of unspecified site without mention of myelopathy 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 elsewhere ([facility]) Acute pain of right knee- Primary Type 2 diabetes mellitus with microalbuminuria, with long-term current use of insulin ([facility]) Right carpal tunnel syndrome Carpal tunnel syndrome Chronic hypoxic respiratory failure ([facility])- Primary Chronic heart failure with preserved ejection fraction (HFpEF) ([facility]) Type 2 diabetes mellitus with hyperglycemia, with long-term current use of insulin ([facility]) Pulmonary hypertension ([facility]) Other chronic pulmonary heart diseases Colon cancer screening Special screening for malignant neoplasms, colon Gastroesophageal reflux disease without esophagitis Esophageal reflux Dehydration- Primary Nausea and vomiting, unspecified vomiting type Type 2 diabetes mellitus with hyperglycemia, with long-term current use of insulin ([facility]) Class 3 severe obesity due to excess calories with serious comorbidity and body mass index (BMI) of 40.0 to 44.9 in adult ([facility]) Chronic hypoxic respiratory failure ([facility]) Chronic heart failure with preserved ejection fraction (HFpEF) ([facility]) Type 2 diabetes mellitus with hyperglycemia, with long-term current use of insulin ([facility])- Primary Chronic heart failure with preserved ejection fraction (HFpEF) ([facility]) Mild episode of recurrent major depressive disorder JOHN (generalized anxiety disorder) Generalized anxiety disorder Gastroesophageal reflux disease without esophagitis Esophageal reflux Class 3 severe obesity due to excess calories with serious comorbidity and body mass index (BMI) of 40.0 to 44.9 in adult ([facility]) Type 2 diabetes mellitus with hyperglycemia, with long-term current use of insulin ([facility])- Primary Benign essential hypertension Essential hypertension, benign Mild episode of recurrent major depressive disorder JOHN (generalized anxiety disorder) Generalized anxiety disorder Chronic heart failure with preserved ejection fraction (HFpEF) ([facility]) Type 2 diabetes mellitus with microalbuminuria, with long-term current use of insulin ([facility]) Class 3 severe obesity due to excess calories with serious comorbidity and body mass index (BMI) of 40.0 to 44.9 in adult ([facility]) Encounter for long-term (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 medications Encounter for long-term (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 other medications Dyslipidemia Other and unspecified hyperlipidemia Primary osteoarthritis of both knees Acute pain of left knee- Primary documented in this encounter [facility]* Diagnosis Mild episode of recurrent major depressive disorder- Primary Type 2 diabetes mellitus with microalbuminuria, with long-term current use of insulin ([facility]) JOHN (generalized anxiety disorder) Generalized anxiety disorder Migraine without aura and without status migrainosus, not intractable Irritable bowel syndrome with diarrhea Irritable bowel syndrome Gastroesophageal reflux disease without esophagitis Esophageal reflux Hot flashes due to menopause Morbid obesity ([facility]) 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.4) Obesity hypoventilation syndrome ([facility])- Primary Obesity hypoventilation syndrome Hypoxia Hypoxemia Type 2 diabetes mellitus with microalbuminuria, with long-term current use of insulin (HCC) Right carpal tunnel syndrome Carpal tunnel syndrome Elevated blood-pressure reading without diagnosis of hypertension Elevated blood pressure reading without diagnosis of hypertension Type 2 diabetes mellitus with hyperglycemia, with long-term current use of insulin (HCC)- Primary Mild episode of recurrent major depressive disorder JOHN (generalized anxiety disorder) Generalized anxiety disorder Carpal tunnel syndrome of left wrist Obesity hypoventilation syndrome ([facility]) Obesity hypoventilation syndrome Generalized edema Edema Irritable bowel syndrome with diarrhea Irritable bowel syndrome Gastroesophageal reflux disease without esophagitis Esophageal reflux Anxiety state Anxiety state, unspecified Type 2 diabetes mellitus with hyperglycemia, with long-term current use of insulin ([facility])- Primary Right carpal tunnel syndrome Carpal tunnel syndrome Chronic hypoxic respiratory failure (HCC) Mild episode of recurrent major depressive disorder JOHN (generalized anxiety disorder) Generalized anxiety disorder Generalized edema 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 Spondylosis of unspecified site without mention of myelopathy 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 elsewhere ([facility]) Acute pain of right knee- Primary Type 2 diabetes mellitus with microalbuminuria, with long-term current use of insulin (HCC) Right carpal tunnel syndrome Carpal tunnel syndrome Chronic hypoxic respiratory failure (HCC)- Primary Chronic heart failure with preserved ejection fraction (HFpEF) ([facility]) Type 2 diabetes mellitus with hyperglycemia, with long-term current use of insulin ([facility]) Pulmonary hypertension (HCC) Other chronic pulmonary heart diseases Colon cancer screening Special screening for malignant neoplasms, colon Gastroesophageal reflux disease without esophagitis Esophageal reflux Dehydration- Primary Nausea and vomiting, unspecified vomiting type Type 2 diabetes mellitus with hyperglycemia, with long-term current use of insulin ([facility]) Class 3 severe obesity due to excess calories with serious comorbidity and body mass index (BMI) of 40.0 to 44.9 in adult ([facility]) Chronic hypoxic respiratory failure (HCC) Chronic heart failure with preserved ejection fraction (HFpEF) (HCC) Type 2 diabetes mellitus with hyperglycemia, with long-term current use of insulin ([facility])- Primary Chronic heart failure with preserved ejection fraction (HFpEF) ([facility]) Mild episode of recurrent major depressive disorder JOHN (generalized anxiety disorder) Generalized anxiety disorder Gastroesophageal reflux disease without esophagitis Esophageal reflux Class 3 severe obesity due to excess calories with serious comorbidity and body mass index (BMI) of 40.0 to 44.9 in adult ([facility]) Type 2 diabetes mellitus with hyperglycemia, with long-term current use of insulin ([facility])- Primary Benign essential hypertension Essential hypertension, benign Mild episode of recurrent major depressive disorder JOHN (generalized anxiety disorder) Generalized anxiety disorder Chronic heart failure with preserved ejection fraction (HFpEF) ([facility]) Type 2 diabetes mellitus with microalbuminuria, with long-term current use of insulin ([facility]) Class 3 severe obesity due to excess calories with serious comorbidity and body mass index (BMI) of 40.0 to 44.9 in adult ([facility]) Encounter for long-term (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 medications Encounter for long-term (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 other medications Dyslipidemia Other and unspecified hyperlipidemia Primary osteoarthritis of both knees Acute pain of left knee- Primary documented in this encounter [facility]* Diagnosis Mild episode of recurrent major depressive disorder- Primary Type 2 diabetes mellitus with microalbuminuria, with long-term current use of insulin ([facility]) JOHN (generalized anxiety disorder) Generalized anxiety disorder Migraine without aura and without status migrainosus, not intractable Irritable bowel syndrome with diarrhea Irritable bowel syndrome Gastroesophageal reflux disease without esophagitis Esophageal reflux Hot flashes due to menopause Morbid obesity ([facility]) 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.4) Obesity hypoventilation syndrome ([facility])- Primary Obesity hypoventilation syndrome Hypoxia Hypoxemia Type 2 diabetes mellitus with microalbuminuria, with long-term current use of insulin ([facility]) Right carpal tunnel syndrome Carpal tunnel syndrome Elevated blood-pressure reading without diagnosis of hypertension Elevated blood pressure reading without diagnosis of hypertension Type 2 diabetes mellitus with hyperglycemia, with long-term current use of insulin ([facility])- Primary Mild episode of recurrent major depressive disorder JOHN (generalized anxiety disorder) Generalized anxiety disorder Carpal tunnel syndrome of left wrist Obesity hypoventilation syndrome ([facility]) Obesity hypoventilation syndrome Generalized edema Edema Irritable bowel syndrome with diarrhea Irritable bowel syndrome Gastroesophageal reflux disease without esophagitis Esophageal reflux Anxiety state Anxiety state, unspecified Type 2 diabetes mellitus with hyperglycemia, with long-term current use of insulin ([facility])- Primary Right carpal tunnel syndrome Carpal tunnel syndrome Chronic hypoxic respiratory failure ([facility]) Mild episode of recurrent major depressive disorder JOHN (generalized anxiety disorder) Generalized anxiety disorder Generalized edema 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 Spondylosis of unspecified site without mention of myelopathy 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 elsewhere ([facility]) Acute pain of right knee- Primary Type 2 diabetes mellitus with microalbuminuria, with long-term current use of insulin ([facility]) Right carpal tunnel syndrome Carpal tunnel syndrome Chronic hypoxic respiratory failure ([facility])- Primary Chronic heart failure with preserved ejection fraction (HFpEF) ([facility]) Type 2 diabetes mellitus with hyperglycemia, with long-term current use of insulin ([facility]) Pulmonary hypertension ([facility]) Other chronic pulmonary heart diseases Colon cancer screening Special screening for malignant neoplasms, colon Gastroesophageal reflux disease without esophagitis Esophageal reflux Dehydration- Primary Nausea and vomiting, unspecified vomiting type Type 2 diabetes mellitus with hyperglycemia, with long-term current use of insulin ([facility]) Class 3 severe obesity due to excess calories with serious comorbidity and body mass index (BMI) of 40.0 to 44.9 in adult ([facility]) Chronic hypoxic respiratory failure ([facility]) Chronic heart failure with preserved ejection fraction (HFpEF) ([facility]) Type 2 diabetes mellitus with hyperglycemia, with long-term current use of insulin ([facility])- Primary Chronic heart failure with preserved ejection fraction (HFpEF) ([facility]) Mild episode of recurrent major depressive disorder JOHN (generalized anxiety disorder) Generalized anxiety disorder Gastroesophageal reflux disease without esophagitis Esophageal reflux Class 3 severe obesity due to excess calories with serious comorbidity and body mass index (BMI) of 40.0 to 44.9 in adult ([facility]) Type 2 diabetes mellitus with hyperglycemia, with long-term current use of insulin ([facility])- Primary Benign essential hypertension Essential hypertension, benign Mild episode of recurrent major depressive disorder JOHN (generalized anxiety disorder) Generalized anxiety disorder Chronic heart failure with preserved ejection fraction (HFpEF) ([facility]) Type 2 diabetes mellitus with microalbuminuria, with long-term current use of insulin ([facility]) Class 3 severe obesity due to excess calories with serious comorbidity and body mass index (BMI) of 40.0 to 44.9 in adult ([facility]) Encounter for long-term (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 medications Encounter for long-term (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 other medications Dyslipidemia Other and unspecified hyperlipidemia Primary osteoarthritis of both knees Pelvic pain in female- Primary Unspecified symptom associated with female genital organs Nausea Nausea alone Genital warts Condyloma acuminatum documented in this encounter [facility] HealthcareInstructionsNot on filedocumented in this encounterPro[facility] [place] SystemInstructionsNot on filedocumented in this encounterPro[facility] [place] SystemInstructionsNot on filedocumented in this encounterPro[facility] SystemInstructionsNot on filedocumented in this encounterProMedica [facility] System InstructionsNot on filedocumented in this encounterProMedica Health System InstructionsNot on filedocumented in this encounterProMedica Health System InstructionsNot on filedocumented in this encounterProMedica Health System InstructionsNot on filedocumented in this encounterProMedica Health System InstructionsNot on filedocumented in this encounterProMedica Health System InstructionsNot on filedocumented in this encounterProMedica Health System InstructionsNot on filedocumented in this encounterProMedica Health System InstructionsNot on filedocumented in this encounterProMedica Health System InstructionsNot on filedocumented in this encounterProMedica Health System InstructionsNot on filedocumented in this encounterProMedica Health System InstructionsNot on filedocumented in this encounterProMedica Health System InstructionsNot on filedocumented in this encounterProMedica Health System InstructionsNot on filedocumented in this encounterProMedica Health System InstructionsNot on filedocumented in this encounterProMedica Health System InstructionsNot on filedocumented in this encounterProMedica Health System InstructionsNot on filedocumented in this encounterProMedica Health System InstructionsNot on filedocumented in this encounterProMedica Health System InstructionsNot on filedocumented in this encounterProMedica Health System InstructionsNot on filedocumented in this encounterProMedica Health System InstructionsNot on filedocumented in this encounterProMedica Health System InstructionsNot on filedocumented in this encounterProMedica Health SystemReason for referral (narrative)* Consultation (Routine) - Pending Review Specialty Diagnoses / Procedures Referred By Kasey henderson Referred To Contact Pulmonary Medicine Diagnoses Mediastinal lymphadenopathy Angela Witt MD [address] [place] [id number] [facility] Pulm Sleep Med [address] [place] [phone] Referral ID Status Reason Start Date Expiration Date Visits Requested Visits Authorized [id number] Pending Review Specialty Services Required 11/09/2023 11/08/2024 1 1 On license of [facility] for referral (narrative)* Consultation (Routine) - Pending Review Specialty Diagnoses / Procedures Referred By Contac t Referred To Contact Pulmonary Medicine Diagnoses Hypoxia Eddie Zurita APRN-CNP [address] [place] [address] Lindsay Arrieta, DO [facility] [place] [address] Referral ID Status Reason Start Date Expiration Date Visits Requested Visits Authorized [id number] Pending Review Specialty Services Required 12/22/2023 12/21/2024 1 1 * Misc (Routine) - Pending Review Specialty Diagnoses / Procedures Referred By Contac t Referred To Contact Procedures Discharge Follow-Up Eddie Zurita APRN-CNP [address], [facility] [address] [place] [address] Referral ID Status Reason Start Date Expiration Date V isits Requested Visits Authorized [id number] Pending Review 12/22/2023 12/21/2024 1 1 * Misc (Routine) - Pending Review Specialty Diagnoses / Procedures Referred By Contac t Referred To Contact Diagnoses Hyperglycemia Acute cystitis without hematuria Procedures Follow-up with primary care provider Eddie Zurita APRN-CNP [address] [place] [address] Referral ID Status Reason Start Date Expiration Date V isits Requested Visits Authorized [id number] Pending Review 12/22/2023 12/21/2024 1 1 * Misc (Routine) - Pending Review Specialty Diagnoses / Procedures Referred By Contac t Referred To Contact Procedures Adult diet Eddie Zurita, [employer] [address] [facility], [facility] [address] [place] [address] Referral ID Status Reason Start Date Expiration Date V isits Requested Visits Authorized [id number] Pending Review 12/22/2023 12/21/2024 1 1 [facility] Narrative* Auth/Cert Specialty Diagnoses / Procedures Referred By Contac t Referred To Contact Diagnoses DKA, type 1, not at goal (HCC) BENNIEA Jamal Levine MD [address] [facility] [address] [place] [address] [employer] [address] [place] [address] Referral ID Status Reason Start Date Expiration Date Visits Re quested Visits Authorized [id number] 1 1 [facility] Phone: reason for visit Narrative* Consultation (Routine) - Pending Review Specialty Diagnoses / Procedures Referred By Contac t Referred To Contact Cardiothoracic Surgery Diagnoses Cavitary lesion of lung Diaz Dalton MD [address] [place] [address] Angela Witt MD [address] [facility] [address] [place] [address] Referral ID Status Reason Start Date Expiration Date Visits Requested Visits Authorized [id number] Pending Review Specialty Services Required 09/19/2023 09/18/2024 1 1 [facility] Narrative* Misc (Routine) - Closed Specialty Diagnoses / Procedures Referred By Contac t Referred To Contact Diagnoses JOSE M (obstructive sleep apnea) Chronic hypoxic respiratory failure (CMS-HCC) Severe obesity (BMI >= 40) ([facility]-HCC) Procedures PSG Diagnostic Smitha Germain MD [address] [facility] [address] [place] [address] Phone: tel: fax: Referral ID Status Reason Start Date Expiration Date Visits Re quested Visits Authorized [id number] Closed 04/09/2024 04/09/2025 1 1 [facility] Narrative* Consultation (Routine) - Authorized Specialty Diagnoses / Procedures Referred By Contac t Referred To Contact Physical Therapy Diagnoses Acute pain of left knee Procedures [place] OFFICE/OUTPATIENT NEW HIGH MDM 60 MINUTES Jr. Harinder Jackson, DO [address] [facility] [address] [place] [address] Phone: tel: fax: Shakila Valadez, MELODY Referral ID Status Reason Start Date Expiration Date Visits Requested Visits Authorized [id number] Authorized Consult and Treat 03/14/2025 09/10/2025 30 30 [facility] N[facility]* Consultation (Routine) - Authorized Specialty Diagnoses / Procedures Referred By Kasey t Referred To Contact Physical Therapy Diagnoses Acute pain of left knee Procedures [place] OFFICE/OUTPATIENT NEW HIGH MDM 60 MINUTES Jr. Harinder Jackson, DO [address] [facility] [address] [place] [address] Phone: tel: fax: Shakila Valadez, PT Referral ID Status Reason Start Date Expiration Date Visits Requested Visits Authorized [id number] Authorized Consult and Treat 03/14/2025 09/03/2025 30 30 [facility] Summary Purpose Family History No Family History [...] Inactivated Comments Full Code 09/28/2021 9:46 AM Date Activated Date Inactivated Comments 12/20/2023 10:13 [...] Comments 03/02/2019 2:48 PM 03/03/2019 5:59 PM Latest [...] Activated Date Inactivated Comments 12/20/2023 10:13 PM Date Activated Date Inactivated Comments 06/05/2023 6:38 AM 06/05/2023 7:25 PM Date Activated Date Inactivated Comments 03/02/2019 2:48 PM 03/03/2019 5:59 PM Date Activated Date Inactivated Comments 12/20/2023 10:13 PM 12/23/2023 5:45 PM Reason for Referral Specialty Diagnoses / Procedures Referred By Kasey t Referred To Contact Diagnoses Type 2 diabetes mellitus with hyperglycemia, with long-term current use of insulin ([facility]) Diaz Dalton MD [address] [place] [place] [address] Referral ID Status Reason Start Date Expiration Date V isits Requested Visits Authorized [id number] Pending Review 05/16/2024 11/12/2024 1 1 Specialty Diagnoses / Procedures Referred By Contac t Referred To Contact Diagnoses Hypoxia Dyspnea on exertion Procedures Home O2 eval (desaturation screen) [place] [address] [place] [id number] Referral ID Status Reason Start Date Expiration Date V isits Requested Visits Authorized [id number] Pending Review 02/08/2024 02/07/2025 1 1 Specialty Diagnoses / Procedures Referred By Contac t Referred To Contact Radiology Diagnoses Mediastinal lymphadenopathy Procedures CT chest [place] [address] [place] [address] [address] Phone: [phone] Referral ID Status Reason Start Date Expiration Date V isits Requested Visits Authorized [id number] Pending Review 02/08/2024 02/07/2025 1 1 Specialty Diagnoses / Procedures Referred By Contac t Referred To Contact Diagnoses Moderate persistent asthma without [place] [address] [place] [phone] Referral ID Status Reason Start Date Expiration Date V isits Requested Visits Authorized [id number] Authorized 02/19/2024 02/17/2025 1 1 Specialty Diagnoses / Procedures Referred By Contac t Referred To Contact Diagnoses Dyspnea on exertion Chronic hypoxic respiratory failure (CMS-HCC) Moderate persistent asthma without complication Procedures Oxygen Therapy Jakob Arrietaaniya Palomino, DO [address] [address] Referral ID Status Reason Start Date Expiration Date V isits Requested Visits Authorized [id number] Pending Review 02/19/2024 02/18/2025 1 1 Specialty Diagnoses / Procedures Referred By Contac t Referred To Contact Diagnoses Dyspnea on exertion Chronic hypoxic respiratory failure (CMS-HCC) Procedures Echo complete W/O contrast Lindsay Arrieta, DO [address] [address] Referral ID Status Reason Start Date Expiration Date V isits Requested Visits Authorized [id number] Pending Review 02/19/2024 02/18/2025 1 1 Specialty Diagnoses / Procedures Referred By Contac t Referred To Contact Diagnoses Chronic hypoxic respiratory failure ([facility]) SOB (shortness of breath) Hypoxia Procedures Oxygen Therapy Lindsay Arrieta, DO [address] [address] Referral ID Status Reason Start Date Expiration Date V isits Requested Visits Authorized [id number] Pending Review 05/07/2024 05/07/2025 1 1 Specialty Diagnoses / Procedures Referred By Contac t Referred To Contact Diagnoses JOSE M (obstructive sleep apnea) Chronic hypoxic respiratory failure ([facility]) Severe obesity (BMI >= 40) ([facility]) Procedures Polysomnography 4 or more parameters [place] [address] [place] [address] Referral ID Status Reason Start Date Expiration Date V isits Requested Visits Authorized Pending Review 04/09/2024 04/09/2025 1 1 Specialty Diagnoses / Procedures Referred By Contac t Referred To Contact Diagnoses JOSE M (obstructive sleep apnea) Chronic hypoxic respiratory failure ([facility]-HCC) Severe obesity (BMI >= 40) ([facility]) Procedures [place] [address] [place] [phone] Referral ID Status Reason Start Date Expiration Date V isits Requested Visits Authorized Pending Review 04/09/2024 04/09/2025 1 1 Additional Source Comments INFORMATION SOURCE (unrecogn ized section and content) DATE CREATED AUTHOR 02/07/2021 [facility] DATE CREATED AUTHOR AUTHOR'S ORGANIZ ATION 02/20/2021 [facility] DATE CREATED AUTHOR AUTHOR'S ORGANIZ ATION 06/06/2021 [facility] DATE CREATED AUTHOR AUTHOR'S ORGANIZ ATION 10/01/2021 [facility] DATE CREATED AUTHOR AUTHOR'S ORGANIZ ATION 10/06/2021 [facility] DATE CREATED AUTHOR AUTHOR'S ORGANIZ ATION 12/09/2022 [facility] DATE CREATED AUTHOR AUTHOR'S ORGANIZ ATION 01/13/2023 [facility] DATE CREATED AUTHOR AUTHOR'S ORGANIZ ATION 03/24/2024 [facility] DATE CREATED AUTHOR AUTHOR'S ORGANIZ ATION 07/17/2024 [facility] DATE CREATED AUTHOR AUTHOR'S ORGANIZ ATION 02/04/2025 [facility] DATE CREATED AUTHOR AUTHOR'S ORGANIZ ATION 03/17/[address] [facility] DATE CREATED AUTHOR AUTHOR'S ORGANIZ ATION 04/23/2025 [facility] EPIC Ordered Prescriptions (unrec ognized section [...] 1505 (New Bag - Provider: Kaylan Mulligan, GEORGINA)1605 (Stopped - Provider: Kaylan Mulligan, GEORGINA) cefTRIAXone (ROCEPHIN) 1000 mg IVPB in 50 mL D5W minibag (CANCELED) 1,000 mg, IntraVENous, EVERY 24 HOURS, First dose on Mon09/28/21 at 1400, Until Discontinued 1331 (New Bag - Provider: Mary Wong)1401 (Stopped - Provider: Kaylan Mulligan, GEORGINA) heparin (porcine) injection 5,000 Units 5,000 Units, SubCUTAneous, EVERY 8 HOURS SCHEDULED (3 times per day), First dose on Mon09/28/21 at 1400 0600 (Automatically Held - Provider: Terrance Smalls PA-C)1400 (Automatically Held - Provider: Terrance Smalls PA-C)1818 (Unheld by provider - Provider: Guido Salas DO)2109 (Given - Provider: Danica Platt RN) 0609 (Given - Provider: Danica Platt RN)1510 (Given - Provider: Li Phelan RN)2245 (Given - Provider: Chinyere Aquino RN) 0556 (Given - Provider: Will Ro RN)1400 (Due - Provider: Guido Salas DO)2200 (Due - Provider: Guido Salas DO) insulin glargine (LANTUS) injection vial 20 Units 20 Units, SubCUTAneous, NIGHTLY, First dose on Mon10/01/21 at 2100 2058 (Given - Provider: Danica Platt RN) 2104 (Given - Provider: Will Ro RN) 2100 [...] Order parameters not met - Comment: BS [phone] (Given - Provider: Will Ro RN) 0652 [...] Protocol, Starting on Joaquina 09/30/21 at 1607
May give oral solution if [...] mg/dL 20 mmol IVPB over 6 hours
Scheduled Medication Order 12/21/2023 12/22/2023 12/23/2023 atorvastatin (LIPITOR) tablet 40 mg 40 mg, oral, Nightly, First dose on Joaquina 12/21/23 at 2200, Look-alike/sound-alike medication - verify indication for use. 2114 (Given - Provider: Clarita Morataya RN) 2140 (Given - Provider: Archana Hernandez RN) 2199 (Due) buPROPion XL (WELLBUTRIN XL) 24 hr tablet 300 mg 300 mg, oral, Daily, First dose on Joaquina 12/21/23 at 0900, Look-alike/sound-alike medication - verify indication for use. Do not crush or chew. 09 (Given - Provider: Jared Huerta) 0843 (Given - Provider: Jania Sierra RN) 0820 (Given - Provider: Lindsey Bryant RN) cefTRIAXone (ROCEPHIN) IVPB 1000 mg/50 mL in iso-osmotic dextrose (20 mg/mL premix) 1,000 mg, intravenous, at 100 mL/hr, Administer over 30 Minutes, Every 24 hours, First dose on Joaquina 12/21/23 at 2000, Look-alike/sound-alike medication - verify indication for use. Do not co-administer with calcium-containing solutions such as Lactated Ringers., Indication: UTI 2123 (New Bag - Provider: Clarita Morataya, GEORGINA)2153 (Stop Bag - Provider: Clarita Morataya RN) 2145 (New Bag - Provider: Archana Hernandez RN)2215 (Stop Bag - Provider: Archana Hernandez, GEORGINA) 1999 (Due) cholecalciferol (vitamin D3) tablet 400 Units 400 Units, oral, Daily, First dose on Joaquina 12/21/23 at 0900 0921 (Given - Provider: Jared Huerta) 0843 (Given - Provider: Jania Sierra, GEORGINA) 0820 (Given - Provider: Lindsey Bryant, GEORGINA) enoxaparin (LOVENOX) syringe 40 mg 40 mg, subcutaneous, Every 12 hours, First dose (after last reorder) on Joaquina 12/21/23 at 0600, Look-alike/sound-alike medication - verify indication for use. 0529 (Given - Provider: Anh Dang RN)1723 (Given - Provider: Arlene Smallwood RN) 0529 (Given - Provider: Clarita Morataya, GEORGINA)1800 (Not Given - Provider: Jania Sierra RN - Reason: Patient/family refused) 0503 (Given - Provider: Archana Hernandez, GEORGINA)1800 (Due) insulin glargine (LANTUS, SEMGLEE) injection pen 15 Units 15 Units, subcutaneous, Daily, First dose on Joaquina 12/21/23 at 0900, Look-alike/sound-alike medication - verify indication for use. Prime with 2 units of insulin prior to administration. Basal (long acting) insulin for subcutaneous administration only. Do not mix with any other insulin. Pre-filled pens stable 28 days at room temperature. 0923 (Given - Provider: Jared Huerta) 0843 (Given - Provider: Jania Sierra RN) 0815 (Given - Provider: Lindsey Bryant RN) insulin lispro (HumaLOG) injection 2-10 Units 2-10 Units, subcutaneous, 3 times daily with meals, First dose on Mon12/21/23 at 0800, Daytime hyperglycemia dosing. For blood glucose 151-200 mg/dL, give 2 units. For blood glucose 201-250 mg/dL, give 4 units. For blood glucose 251-300 mg/dL, give 6 units. For blood glucose 301-350 mg/dL, give 8 units. For blood glucose 351-400 mg/dL, give 10 units. Give even if NPO or meals skipped. Do NOT give more often then every 4 hours when NPO. Notify prescriber if blood glucose greater than 400 mg/dL. Look-alike/sound-alike medication - verify indication for use. Prime with 2 units of insulin prior to administration. Prandial/supplemental Insulin. Pre-filled pens stable 28 days at room temperature. Insulin lispro should be administered within 15 minutes before or immediately after a meal. 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 For blood glucose 201-250 mg/dL, give 2 units. For blood glucose 251-300 mg/dL, give 4 units. For blood glucose 301-350 mg/dL, give 6 units. For blood glucose 351-400 mg/dL, give 8 units. Give even if NPO or meals skipped. Do NOT give more often then every 4 hours when NPO. Notify prescriber if blood glucose greater than 400 mg/dL. Look-alike/sound-alike medication - verify indication for use. Prime with 2 units of insulin prior to administration. Prandial/supplemental Insulin. Pre-filled pens stable 28 days at room temperature. Insulin lispro should be administered within 15 minutes before or immediately after a meal. 2117 (Given - Provider: Clarita Morataya RN) 2140 (Given - Provider: Archana Hernandez, RN - Comment: bs 269) 2199 (Due) lamoTRIgine (LaMICtal) tablet 200 mg 200 mg, oral, Daily, First dose on Joaqunia 12/21/23 at 0900, Look-alike/sound-alike medication - verify indication for use., Indications: depression associated with bipolar disorder 0921 (Given - Provider: Jared Huerta) 0843 (Given - Provider: Jania Sierra, GEORGINA) 0820 (Given - Provider: Lindsey Bryant, GEORGINA) lisinopriL (PRINIVIL,ZESTRIL) tablet 2.5 mg 2.5 mg, oral, Daily, First dose on Joaquina 12/21/23 at 0900, Look-alike/sound-alike medication - verify indication for use. 0921 (Given - Provider: Jared Huerta) 0843 (Given - Provider: Jania Sierra RN) 0820 (Given - Provider: Lindsey Bryant, GEORGINA) pantoprazole (PROTONIX) EC tablet 40 mg 40 mg, oral, Every morning before breakfast, First dose on Joaquina 12/21/23 at 0700, Look-alike/sound-alike medication - verify indication for use. If patient is receiving enteral feeding, consider alternative PPI or continue IV pantoprazole until the delayed-release tablet can be taken orally, Indication: Stress Ulcer Prophylaxis (Contraindication to H2RA) 0531 (Given - Provider: Anh Dang RN) 0529 (Given - Provider: Clarita Morataya, GEORGINA)0700 (Canceled Entry - Provider: Clarita Morataya RN) 0503 (Given - Provider: Archana Hernandez, GEORGINA) pioglitazone (ACTOS) tablet 45 mg 45 mg, oral, Daily, First dose on Joaquina 12/21/23 at 0900, Hold dose and notify prescriber if blood glucose is less than 100 mg/dL or patient status has changed to NPO. Look-alike/sound-alike medication - verify indication for use. 0921 (Given - Provider: Jared Huerta) 0843 (Given - Provider: Jania Sierra, GEORGINA) 0821 (Given - Provider: Lindsey Bryant RN) prazosin (MINIPRESS) capsule 2 mg 2 mg, oral, Nightly, First dose on Joaquina 12/21/23 at 2200 2200 (Not Given - Provider: Clarita Morataya RN - Reason: Other - Comment: low BP) 214 (Given - Provider: Archana Hernandez RN) 2200 (Due) sertraline (ZOLOFT) tablet 100 mg 100 mg, oral, Daily, First dose on Joaquina 12/21/23 at 0900, Look-alike/sound-alike medication - verify indication for use. 0922 (Given - Provider: Jared Huerta) 0843 (Given - Provider: Jania Sierra RN) 0821 (Given - Provider: Lindsey Bryant RN) Continuous Medication Order 12/21/2023 12/22/2023 12/23/2023 sodium chloride 0.9 % infusion 100 mL/hr, intravenous, Continuous, Starting on Mon12/20/23 at 2215 0106 (Rate/Dose Verify - Provider: Anh Dang RN)1719 (Rate/Dose Change - Provider: Clarita Morataya RN)1809 (Rate/Dose Change - Provider: Clarita Morataya RN)1810 (Stop Bag - Provider: Clarita Morataya RN) 0404 (Stop Bag - Provider: Clarita Morataya RN)0404 (New Bag - Provider: Clarita Morataya RN)0713 (Rate/Dose Verify - Provider: Clarita Morataya RN) PRN Medication Order 12/21/2023 12/22/2023 12/23/2023 acetaminophen (TYLENOL) tablet 650 mg 650 mg, oral, Every 4 hours PRN, Temperature greater than 38.3 C, Starting on Mon12/20/23 at 2211, [Warning: Total Acetaminophen not to exceed more than 4 grams (4000 mg) in 24 hours] 1134 (Given - Provid er: Lindsey Bryant RN) alum-mag hydroxide-simeth (MAALOX) 200-200-20 mg/5 mL suspension 30 mL 30 mL, oral, 4 times daily after meals and at bedtime as needed, dyspepsia, Starting on Mon12/20/23 at 2212, Look-alike/sound-alike medication - verify indication for use. Shake well., Indications: dyspepsia dextrose (GLUTOSE) 40 % gel 15 g 15 g, oral, As needed, low blood sugar, blood glucose less than 70 mg/dL, Starting on Mon12/20/23 at 2211, If patient conscious and taking PO. If blood glucose is not greater than 70 mg/dL after initial treatment, repeat treatment. dextrose 5 % (D5W) infusion 100 mL/hr, intravenous, Continuous PRN, blood glucose less than 70 mg/dL, Starting on Mon12/20/23 at 2211, Use immediately following dextrose 50% or glucagon treatment for patients who are unconscious or NPO. Contact prescriber for additional orders. If blood glucose is not greater than 70 mg/dL after initial treatment, repeat treatment. dextrose 50 % in water (D50W) 50% solution 25 mL 25 mL, intravenous, As needed, low blood sugar, blood glucose less than 70 mg/dL and unconscious or NPO with IV access, Starting on Mon12/20/23 at 2211, Push over 1-3 minutes STAT. If conscious and not NPO, immediately follow with meal tray or high protein (7 grams) snack if tray not available. If NPO, initiate 5% dextrose in water at 100 mL/hr and contact prescriber for additional orders. If blood glucose is not greater than 70 mg/dL after initial treatment, repeat treatment. VESICANT (RED) Warning: HYPERTONIC solution. glucagon HCL injection 1 mg 1 mg, intramuscular, As needed, low blood sugar, blood glucose less than 70 mg/dL and unconscious or NPO without IV access., Starting on Mon12/20/23 at 2211, If conscious and not NPO, immediately follow with meal tray or high protein (7Grams) snack if tray not available. If NPO, initiate IV 5% Dextrose/Water at 100 mL/hr and contact prescriber for additional orders. If blood glucose is not greater than 70 mg/dL after initial treatment, repeat treatment. ipratropium-albuteroL (DUONEB) 0.5 mg-3 mg(2.5 mg base)/3 mL nebulizer solution 3 mL 3 mL, nebulization, Every 6 hours PRN, wheezing, Starting on Mon12/20/23 at 2219, Implement INPATIENT/ED Bronchodilator Clinical Practice Guidelines? Yes, Document: [email or web address]\[email or web address]_Ref erence\Orders\Respiratory Care Guidelines\CPG Bronchodilator [email or web address].pdf magnesium sulfate IVPB 2000 mg/50 mL in iso-osmotic water (40 mg/mL premix) 2,000 mg, intravenous, at 25 mL/hr, Administer over 120 Minutes, As needed, Magnesium level 1.7 to 1.9 mg/dL, or Ionized Magnesium level 0.45 to 0.5 mmol/L., Starting on Mon12/20/23 at 2217, Recheck magnesium level 4 hours after infusion complete. With each magnesium result continue the replacement orders as needed. magnesium sulfate IVPB 4000 mg/100 mL in iso-osmotic water (40 mg/mL premix) 4,000 mg, intravenous, at 25 mL/hr, Administer over 240 Minutes, As needed, Magnesium level 1.6 mg/dL or less, or Ionized Magnesium level 0.44 mmol/L or less, Starting on Mon12/20/23 at 2217, Recheck magnesium level 4 hours after infusion complete. With each magnesium result continue the replacement orders as needed. ondansetron (PF) (ZOFRAN) injection 4 mg 4 mg, intravenous, Every 6 hours PRN, nausea, vomiting, Starting on Mon12/20/23 at 2211, Administer over 2-5 minutes. potassium chloride (K-TAB,KLOR-CON) CR tablet 30-50 mEq(Linked Group 1) 30-50 mEq, oral, As needed, potassium supplementation, Starting on Mon12/20/23 at 2217, Progress to oral potassium replacement when patient tolerating oral intake. If dose administered, recheck potassium level 4 hours after last dose. For potassium level 3.4 to 3.8 mmol/L and GFR 30 mL/min or greater=30 mEq. For potassium level 3.1 to 3.3 mmol/L and GFR 30 mL/min or greater=40 mEq. For potassium level 3 mmol/L or less and GFR 30 mL/min or greater=50 mEq. Do not crush or chew. potassium chloride (KAYCIEL) 20 mEq/15 mL solution 30-50 mEq(Linked Group 1) 30-50 mEq, oral, As needed, potassium supplementation, Starting on Mon12/20/23 at 2217, Progress to oral potassium replacement when patient tolerating oral intake. If dose administered, recheck potassium level 4 hours after last dose. For potassium level 3.4 to 3.8 mmol/L and GFR 30 mL/min or greater=30 mEq. For potassium level 3.1 to 3.3 mmol/L and GFR 30 mL/min or greater=40 mEq. For potassium level 3 mmol/L or less and GFR 30 mL/min or greater=50 mEq. Must dilute before use - Mix in 3-8 ounces of water or juice before administration When administering in feeding tube, flush before and after per policy and monitor potassium levels sodium chloride 0.9 % flush 3 mL 3 mL, intravenous, As needed, line care, before and after each intermittent use, Starting on Mon12/20/23 at 1556 sodium chloride 0.9 % flush bag 25 mL, intravenous, at 100 mL/hr, Administer over 15 Minutes, As needed, line care, line care after IVPB administration, Starting on Mon12/20/23 at 2211 sodium chloride 0.9 % infusion 20 mL/hr, intravenous, Continuous PRN, to maintain patency of lines, Starting on Mon12/20/23 at 2211 Linked Groups Order Group 1: potassium chloride (K-TAB,KLOR-CON) CR tablet 30-50 mEqJump to med 30-50 mEq, oral, As needed, potassium supplementation, Starting on Mon12/20/23 at 2217, Progress to oral potassium replacement when patient tolerating oral intake. If dose administered, recheck potassium level 4 hours after last dose. For potassium level 3.4 to 3.8 mmol/L and GFR 30 mL/min or greater=30 mEq. For potassium level 3.1 to 3.3 mmol/L and GFR 30 mL/min or greater=40 mEq. For potassium level 3 mmol/L or less and GFR 30 mL/min or greater=50 mEq. Do not crush or chew. Or potassium chloride (KAYCIEL) 20 mEq/15 mL solution 30-50 mEqJump to med 30-50 mEq, oral, As needed, potassium supplementation, Starting on Mon12/20/23 at 2217, Progress to oral potassium replacement when patient tolerating oral intake. If dose administered, recheck potassium level 4 hours after last dose. For potassium level 3.4 to 3.8 mmol/L and GFR 30 mL/min or greater=30 mEq. For potassium level 3.1 to 3.3 mmol/L and GFR 30 mL/min or greater=40 mEq. For potassium level 3 mmol/L or less and GFR 30 mL/min or greater=50 mEq. Must dilute before use - Mix in 3-8 ounces of water or juice before administration When administering in feeding tube, flush before and after per policy and monitor potassium levels Care Teams (unrecognized sec tion and content) Bone Density Technician Relationship Specialty Start Date End Date Diaz Dalton MD [address] [place], [place] [id number] PCP - General Family Medicine 09/28/21 Bone Density Technician Relationship Specialty Start Date End Date Diaz Dalton MD [address] [place] [address] PCP - General Family Medicine 09/25/23 Bone Density Technician Relationship Specialty Start Date End Date Diaz Dalton MD [address] [place] [address] PCP - General Family Medicine 09/25/23 Bone Density Technician Relationship Specialty Start Date End Date Diaz Dalton MD [address] [place] [address] PCP - General Family Medicine 09/25/23 Bone Density Technician Relationship Specialty Start Date End Date Diaz Dalton MD [address] [place] [address] PCP - General Family Medicine 09/25/23 Bone Density Technician Relationship Specialty Start Date End Date Diaz Dalton MD [address] [place] [address] PCP - General Family Medicine 09/25/23 Bone Density Technician Relationship Specialty Start Date End Date Diaz Dalton MD [address] [place] [address] PCP - General Family Medicine 09/25/23 Bone Density Technician Relationship Specialty Start Date End Date Diaz Dalton MD [address] [place] [address] PCP - General Family Medicine 06/28/24 Bone Density Technician Relationship Specialty Start Date End Date Diaz Dalton MD [address] [place] [address] PCP - General Family Medicine 09/25/23 Bone Density Technician Relationship Specialty Start Date End Date Diaz Dalton MD [address] [place] [address] PCP - General Family Medicine 09/25/23 Bone Density Technician Relationship Specialty Start Date End Date Diaz Dalton MD [address] [place] [address] PCP - General Family Medicine 09/25/23 Bone Density Technician Relationship Specialty Start Date End Date Diaz Dalton MD [address] [place] [address] PCP - General Family Medicine 09/25/23 Bone Density Technician Relationship Specialty Start Date End Date Diaz Dalton MD [address] [place] [address] PCP - General Family Medicine 09/25/23 Bone Density Technician Relationship Specialty Start Date End Date Diaz Dalton MD [address] [place] [address] PCP - General Family Medicine 09/25/23 Bone Density Technician Relationship Specialty Start Date End Date Diaz Dalton MD [address] [place] [address] PCP - General Family Medicine 09/25/23 Bone Density Technician Relationship Specialty Start Date End Date Diaz Dalton MD [address] [place] [address] PCP - General Family Medicine 09/25/23 Bone Density Technician Relationship Specialty Start Date End Date Diaz Dalton MD [address] [place] [address] PCP - General Family Medicine 09/25/23 Bone Density Technician Relationship Specialty Start Date End Date Diaz Dalton MD [address] [place] [address] PCP - General Family Medicine 09/25/23 Bone Density Technician Relationship Specialty Start Date End Date Diaz Dalton MD [address] [place] [address] PCP - General Family Medicine 09/25/23 Bone Density Technician Relationship Specialty Start Date End Date Diaz Dalton MD [address] [place] [address] PCP - General Family Medicine 09/25/23 Bone Density Technician Relationship Specialty Start Date End Date Diaz Dalton MD [address] [place] [address] PCP - General Family Medicine 09/25/23 Bone Density Technician Relationship Specialty Start Date End Date Diaz Dalton MD [address] [place] [address] PCP - General Family Medicine 09/25/23 Bone Density Technician Relationship Specialty Start Date End Date Diaz Dalton MD [address] [place] [address] PCP - General Family Medicine 09/25/23 Bone Density Technician Relationship Specialty Start Date End Date Diaz Dalton MD [address] [place] [address] PCP - General Family Medicine 09/25/23 Bone Density Technician Relationship Specialty Start Date End Date Diaz Dalton MD [address] [place] [address] PCP - General Family Medicine 09/25/23 Bone Density Technician Relationship Specialty Start Date End Date Diaz Dalton MD [address] [place] [address] PCP - General Family Medicine 09/25/23 Bone Density Technician Relationship Specialty Start Date End Date Diaz Dalton MD [address] [place] [address] PCP - General Family Medicine 06/28/24 Bone Density Technician Relationship Specialty Start Date End Date Diaz Dalton MD [address] [place] [address] PCP - General Family Medicine 06/28/24 Bone Density Technician Relationship Specialty Start Date End Date Diaz Dalton MD [address] [place] [address] PCP - General Family Medicine 06/28/24 Bone Density Technician Relationship Specialty Start Date End Date Diaz Dalton MD [address] [place] [address] PCP - General Family Medicine 06/28/24 Bone Density Technician Relationship Specialty Start Date End Date Diaz Dalton MD [address] [place] [address] PCP - General Family Medicine 09/25/23 Bone Density Technician Relationship Specialty Start Date End Date Diaz Dalton MD [address] [place] [place] [address] PCP - General Family Medicine 09/24/21 Bone Density Technician Relationship Specialty Start Date End Date Diaz Dalton MD [address] [place] [address] PCP - General Family Medicine 09/24/21 Bone Density Technician Relationship Specialty Start Date End Date Diaz Dalton MD [address] [place] [address] PCP - General Family Medicine 09/24/21 Bone Density Technician Relationship Specialty Start Date End Date Diaz Dalton MD [address] [place] [address] PCP - General Family Medicine 09/24/21 Bone Density Technician Relationship Specialty Start Date End Date Diaz Dalton MD [address] [place] [address] PCP - General Family Medicine 09/24/21 Bone Density Technician Relationship Specialty Start Date End Date Diaz Dalton MD [address] [place] [address] PCP - General Family Medicine 09/24/21 Bone Density Technician Relationship Specialty Start Date End Date Diaz Dalton MD [address] [place] [address] PCP - General Family Medicine 09/24/21 Bone Density Technician Relationship Specialty Start Date End Date Diaz Dalton MD [address] [place] [address] PCP - General Family Medicine 09/24/21 Bone Density Technician Relationship Specialty Start Date End Date Diaz Dalton MD [address] [place] [address] PCP - General Family Medicine 09/24/21 Bone Density Technician Relationship Specialty Start Date End Date Diaz Dalton MD [address] [place] [address] PCP - General Family Medicine 09/24/21 Bone Density Technician Relationship Specialty Start Date End Date Diaz Dalton MD [address] [place] [address] PCP - General Family Medicine 09/24/21 Bone Density Technician Relationship Specialty Start Date End Date Diaz Dalton MD [address] [address] PCP - General Family Medicine 09/24/21 Bone Density Technician Relationship Specialty Start Date End Date Diaz Dalton MD [address] [place] [address] PCP - General Family Medicine 09/24/21 Bone Density Technician Relationship Specialty Start Date End Date Diaz Dalton MD PCP - General Family Medicine 09/24/21 Bone Density Technician Relationship Specialty Start Date End Date Diaz Dalton MD PCP - General Family Medicine 09/24/21 Bone Density Technician Relationship Specialty Start Date End Date Diaz Dalton MD PCP - General Family Medicine 09/24/21 Bone Density Technician Relationship Specialty Start Date End Date Diaz Dalton MD PCP - General Family Medicine 05/16/24 Bone Density Technician Relationship Specialty Start Date End Date Diaz Dalton MD [address] [place] [address] PCP - General Family Medicine 05/28/24 Bone Density Technician Relationship Specialty Start Date End Date Diaz Dalton MD [address] [place] [address] PCP - General Family Medicine 05/28/24 Bone Density Technician Relationship Specialty Start Date End Date Diaz Dalton MD [address] [place] [address] PCP - General Family Medicine 05/28/24 Bone Density Technician Relationship Specialty Start Date End Date Diaz Dalton MD [address] [place] [address] PCP - General Family Medicine 05/28/24 Bone Density Technician Relationship Specialty Start Date End Date Diaz Dalton MD [address] [place] [address] PCP - General Family Medicine 06/28/24 Bone Density Technician Relationship Specialty Start Date End Date Diaz Dalton MD [address] [place] [address] PCP - General Family Medicine 06/28/24 Bone Density Technician Relationship Specialty Start Date End Date Diaz Dalton MD [address] [place] [address] PCP - General Family Medicine 06/28/24 Bone Density Technician Relationship Specialty Start Date End Date Diaz Dalton MD [address] [place] [address] PCP - General Family Medicine 06/28/24 Bone Density Technician Relationship Specialty Start Date End Date Diaz Dalton MD [address] [place] [address] PCP - General Family Medicine 06/28/24 Bone Density Technician Relationship Specialty Start Date End Date Diaz Dalton MD [address] [place] [address] PCP - General Family Medicine 09/25/23 Bone Density Technician Relationship Specialty Start Date End Date Diaz Dalton MD [address] [place] [address] PCP - General Family Medicine 09/25/23 Bone Density Technician Relationship Specialty Start Date End Date Diaz Dalton MD [address] [place] [address] PCP - General Family Medicine 09/25/23 Bone Density Technician Relationship Specialty Start Date End Date Diaz Dalton MD [address] [place] [address] PCP - General Family Medicine 09/25/23 Bone Density Technician Relationship Specialty Start Date End Date Diaz Dalton MD PCP - General Family Medicine 10/27/24 Bone Density Technician Relationship Specialty Start Date End Date Diaz Dalton MD PCP - General Family Medicine 10/27/24 Bone Density Technician Relationship Specialty Start Date End Date Diaz Dalton MD PCP - General Family Medicine 10/27/24 Bone Density Technician Relationship Specialty Start Date End Date Diaz Dalton MD PCP - General Family Medicine 10/27/24 Bone Density Technician Relationship Specialty Start Date End Date Diaz Dalton MD [address] [place] [address] PCP - General Family Medicine 09/25/23 Bone Density Technician Relationship Specialty Start Date End Date Diaz Dalton MD [address] [place] [address] PCP - General Family Medicine 09/25/23 Bone Density Technician Relationship Specialty Start Date End Date Diaz Dalton MD PCP - General Family Medicine 10/27/24 Bone Density Technician Relationship Specialty Start Date End Date Diaz Dalton MD [address] [place] [address] PCP - General Family Medicine 09/25/23 Bone Density Technician Relationship Specialty Start Date End Date Diaz Dalton MD [address] [place] [address] PCP - General Family Medicine 09/25/23 Bone Density Technician Relationship Specialty Start Date End Date Diaz Dalton MD [address] [place] [address] PCP - General Family Medicine 09/25/23 Bone Density Technician Relationship Specialty Start Date End Date Diaz Dalton MD PCP - General Family Medicine 10/27/24 Bone Density Technician Relationship Specialty Start Date End Date Diaz Dalton MD PCP - General Family Medicine 10/27/24 Bone Density Technician Relationship Specialty Start Date End Date Diaz Dalton MD PCP - General Family Medicine 10/27/24 Bone Density Technician Relationship Specialty Start Date End Date Diaz aDlton MD [address] [place] [address] PCP - General Family Medicine 09/25/23 Bone Density Technician Relationship Specialty Start Date End Date Diaz Dalton MD PCP - General Family Medicine 10/27/24 Bone Density Technician Relationship Specialty Start Date End Date Diaz Dalton MD PCP - General Family Medicine 10/27/24 Bone Density Technician Relationship Specialty Start Date End Date Diaz Dalton MD [address] [place] [address] PCP - General Family Medicine 09/25/23 Bone Density Technician Relationship Specialty Start Date End Date Diaz Dalton MD [address] [place] [address] PCP - General Family Medicine 09/25/23 Bone Density Technician Relationship Specialty Start Date End Date Diaz Dalton MD [address] [place] [address] PCP - General Family Medicine 09/25/23 Bone Density Technician Relationship Specialty Start Date End Date Diaz Dalton MD [address] [place] [address] PCP - General Family Medicine 09/25/23 Bone Density Technician Relationship Specialty Start Date End Date Diaz Dalton MD [address] [place] [address] PCP - General Family Medicine 09/25/23 Bone Density Technician Relationship Specialty Start Date End Date Diaz Dalton MD [address] [place] [address] PCP - General Family Medicine 09/25/23 Bone Density Technician Relationship Specialty Start Date End Date Diaz Dalton MD [address] [place] [address] PCP - General Family Medicine 09/25/23 Bone Density Technician Relationship Specialty Start Date End Date Diaz Dalton MD [address] [place] [address] PCP - General Family Medicine 09/25/23 Bone Density Technician Relationship Specialty Start Date End Date Diaz Dalton MD [address] [place] [address] PCP - General Family Medicine 09/25/23 Bone Density Technician Relationship Specialty Start Date End Date Diaz Dalton MD [address] [place] [address] PCP - General Family Medicine 09/25/23 Bone Density Technician Relationship Specialty Start Date End Date Diaz Dalton MD [address] [place] [address] PCP - General Family Medicine 09/25/23 Bone Density Technician Relationship Specialty Start Date End Date Diaz Dalton MD [address] [place] [address] PCP - General Family Medicine 09/25/23 Bone Density Technician Relationship Specialty Start Date End Date Diaz Dalton MD [address] [place] [address] PCP - General Family Medicine 09/25/23 Reason for Visit (unrecogniz ed section and content) Reason Comments Post-op Reason Comments Amenorrhea Reason Onset Date Comments medical clearance 06/03/2024 Reason Comments Wound Check S/P Cath 06/26/24 Reason Comments Follow-up Reason Onset Date Comments Med Refill 07/29/2024 Reason Onset Date Comments Med Refill 08/05/2024 Reason Comments Follow-up [facility] f/UP Reason Comments Well Women Visit Reason Comments Med Refill Reason Comments encounter to discuss test results Reason Comments Follow-up 3m Depression Reason Comments Knee Pain Fell 05/15/24 Reason Comments Pain Reason Onset Date Comments Med Refill 08/21/2024 Reason Onset Date Comments Med Refill 09/19/2024 Reason Onset Date Comments Med Refill 09/23/2024 Reason Onset Date Comments Med Refill 09/25/2024 Reason Comments Follow-up 3 MONTHS Shortness of Breath ON EXERTION Reason Comments Foot Pain Carissa Santos 44yo. Patient relates her left foot is always numb, started about 9 months ago. NKI. Reason Comments Cough Denies Shortness of Breath Denies Wheezing Denies Specialty Diagnoses / Procedures Referred By Contac t Referred To Contact Pulmonary Medicine Diagnoses Mediastinal lymphadenopathy Angela Witt MD [address] [facility] [address] [place] [address] [facility] Pul Sleep Med [address] [address] Referral ID Status Reason Start Date Expiration Date Visits Requested Visits Authorized [id number] Pending Review Specialty Services Required 11/09/2023 11/08/2024 1 1 Reason Comments Shortness of Breath Specialty Diagnoses / Procedures Referred By Contac t Referred To Contact Diagnoses SOB (shortness of breath) Hyperglycemia Acute cystitis without hematuria Ezequiel Graff MD [address], [place] [address] Referral ID Status Reason Start Date Expiration Date Visits Re quested Visits Authorized [id number] 1 1 Reason Comments Follow-up Mediastinal lymphade nopathyCXR 1 VW: 12/19/2026ronch: 11/22/2023FT: not completedLabs: not completed Specialty Diagnoses / Procedures Referred By Contmirta t Referred To Contact Pulmonary Medicine Diagnoses Hypoxia Eddie Zurita, CATTLE DIPPER-PACKER INSPECTOR [address] [place] [address] Lindsay Arrieta, DO [address] [place] [address] Referral ID Status Reason Start Date Expiration Date Visits Requested Visits Authorized [id number] Pending Review Specialty Services Required 12/22/2023 12/21/2024 1 1 Reason Comments Med Refill Reason Comments Sleep Apnea No previous sleep st udyNo PAP therpayArrived on 2Lnc of O2Uses 3Lnc of O2 at HS Reason Onset Date Comments Sleep Lab 04/10/2024 Comp PSG/PAP Reason Comments Follow-up Mediastinal lymphade nopathyCT: 04/23/2024On 2Lnc of O2 on exertion, on 3Lnc of O2 at nightArrived on 3Lnc of O2 Reason Onset Date Comments Cardiac Cath 06/20/2024 Reason Comments Follow-up EST PT F/U CATH DONE L/S LLD SCHED W/PT Reason Onset Date Comments Abnormal Lab 07/30/2024 Reason Onset Date Comments CRITICAL LAB 07/30/2024 Reason Comments Sleep Apnea Compliance/Setup: DME: HartArrived on 3Lnc of O2, on 3Lnc of O2 on exertion Reason Comments Follow-up 3mo ov, l/s LLD - no labs/testing - appt sched w/ pt Reason Comments Follow-up 3m f/upLeft knee audrey n Depression Cough With sore throat Reason Comments Pain Reason Onset Date Comments PPMM referral 03/05/2025 Reason Onset Date Comments in pain 02/27/2025 Reason Comments Follow-up Right upper lobe nod ule, c/o increased SOB, using Trelegy Shortness of Breath Currently 3 liters w ith PO and 3 liters with concentrator Cough Not really Wheezing none Reason Comments Genital Warts Reason Comments Follow-up Reason Onset Date Comments Med Refill 03/24/2025 Reason Onset Date Comments re: PT so far 03/28/2025 Reason Onset Date Comments called and said that therapy is making her pain worse 03/27/2025 Reason Onset Date Comments Cx PT 04/07/25 04/07/2025 Reason Comments Left Ovarian Pain FOR RECORDS PERTAINING TO PATIENTS WHO ARE [...] BE BASED ON THE PRIMARY CLINICAL RECORDS. [employer]. provides no warranty or guarantee of the accuracy or completeness of information in this document.
[2025-04-24 13:41] LABS: Hematocrit 41.8 % (36.0-48.0); Hemoglobin 13.2 g/dL (12.0-16.0); Immature Granulocytes Abs Auto 0.01 10^3/uL (0.00-0.03); Immature Granulocytes Pct Auto 0.1 % (0.0-0.5); Lymphocytes Absolute Auto 2.5 10^3/uL (1.2-3.8); Mean Corpuscular HGB Conc 31.6 g/dL (29.9-35.2); Mean Corpuscular Hemoglobin 28.8 pg (26.7-34.0); Mean Corpuscular Volume 91.1 fL (81.0-99.0); Platelet Count 168 10^3/uL (150-450); Red Blood Count 4.59 10^6/uL (4.20-5.40); White Blood Count 7.4 10^3/uL (4.0-11.0)
[2025-04-24 14:48] LABS: Alanine Aminotransferase 33 U/L (14-59); Albumin Globulin Ratio 0.9; Albumin Level 3.4 g/dL (3.4-5.0); Alkaline Phosphatase 105 U/L (46-116); Anion Gap 7.5; Aspartate Amino Transferase 11 U/L (15-37); Blood Urea Nitrogen 28.0 mg/dL (7.0-18.0); Calcium 8.9 mg/dL (8.5-10.1); Carbon Dioxide 31.1 mmol/L (21.0-32.0); Chloride 102 mmol/L (98-107); Cholesterol 181 mg/dL (<=200); Estimated GFR (African America >60 (>=60 mL/min/1.73m^2); Estimated GFR (Non-African Ame >60 (>=60 mL/min/1.73m^2); Globulin 3.9 g/dL; Glucose 366 mg/dL (74-106); HDL Cholesterol 62 mg/dL (40-60); Potassium 4.6 mmol/L (3.5-5.1); Sodium 136 mmol/L (136-145); Thyroid Stimulating Hormone 1.133 uIU/mL (0.358-3.740); Total Protein 7.3 g/dL (6.4-8.2); Triglycerides 201 mg/dL (<=150); VLDL CHOLESTEROL 40.2 mg/dL
[2025-04-24 15:45] LABS: Microalbum Creatinine Ratio Ur 82.1 mg/g (0.0-29.9)
== END 2025-04-24 13:12 | disposition home or self-care (01) ==
LOC: LAB 13:12
PROVIDERS: PCP Family Medicine; Visit Provider Family Medicine
DX: E11.65 Type 2 diabetes mellitus with hyperglycemia (principal); Z79.4 Long term (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 insulin; I10 Essential (primary) hypertension; Z79.899 Other long term (current) drug therapy; E78.5 Hyperlipidemia, unspecified; E66.813 Obesity, class 3; E66.01 Morbid (severe) obesity due to excess calories; Z68.41 Body mass index [BMI] 40.0-44.9, adult
CPT/HCPCS: 36415; 80048; 80061; 80076; 82043; 82570; 83036; 84443; 85025

== ENCOUNTER 2025-04-24 13:20 | Outpatient (OUT) | payer MEDICAID, SELFPAY ==
--- NOTE | 2025-04-24 13:25 | US_ITS ---
The [address] [address] Patient Name: YAMILA LOZADA MRN: [id number] date: 1980 Sex: F Assigned Patient Location: Current Patient Location: [facility] Accession/Order Number: [id number] Exam Date: 04/24/2025 13:27 Report Date: 04/24/2025 16:10 At the request of: NADYA WHITMORE Procedure: US pelvis w/ transvaginal Pelvic ultrasound HISTORY: Right-sided pelvic pain. Uterus is anteverted. Uterus measures 4.6 x 1.9 x 2.6 cm. The endometrium has a total combined thickness of 3 mm. The ovaries not visualized. No adnexal mass. No free fluid. US/US pelvis w/ transvaginal IMPRESSION: Limited examination. Nonvisualization of the ovaries. Unremarkable anteverted uterus and endometrial complex. No adnexal mass or free fluid Impression dictated by: Gallito Torres M.D. 04/24/2025 4:10 PM Dictation Location: [employer] Electronically authenticated by: [id number] Y Date: 04/24/2025 16:10
--- OUTSIDE RECORDS SUMMARY | 2025-04-24 13:53 | XMS_ITS | CCD ---
Author Organization [facility] Care Team Providers Care Territory Account Executive Name Role Phone DIAZ DALTON Attending Unavailchad e DEREKEREShelby, DIAZ MORALES Primary Care Unavailchad Dalton MD, Diaz Morales Primary Care Provider YAAKOV BERRIOS Referring Unavailable SHA, DIAZ MORALES Primary Care Unavailabl e SALASGUIDO [...] SHA, DR DIAZ Phipps Primary Care Unavailable DEMAR ., DR VALENCIA Admitting Unavailable DEMAR ., DR VALENCIA Attending Unavailable DEMAR ., DR VALENCIA Consulting Unavailable NADJOHNR, DR DIAZ Phipps Primary Care Unavailable NADERER, DR DIAZ Phipps Primary Care Unavailable MYRNA, DR CHERI Cespedes Attending Unavailable MYRNA, DR CHERI Cespedes Consulting Unavailable MYRNA, DR CHERI Cespedes Admitting Unavailable Nadereshelby WERNER, Diaz Primary Care Provider [phone] ANGELA WITT Attending Unavailable NADERER, DIAZ Referring Unavailable NADERER, DIAZ Primary Care Unavailable TALEB, LIBBY Attending Unavailable ANGELA WITT Referring Unavailable NADERER, IDAZ Primary Care Unavailable NADERER, DIAZ Referring Unavailable [...] Unavailable Mannyr , Diaz Primary Care Provider [phone] Arianna Miller Admitting Unavail able PaulArianna valle [...] able NADERER, DIAZ A Primary Care Unavailable Diaz Dalton MD Primary Care Provider [phone] Diaz Dalton MD Primary Care Provider Diaz Dalton MD Primary Care Provider Diaz Dalton MD Primary Care Provider [phone] Diaz Dalton MD Primary Care Provider NADERER, DIAZ Primary Care Unavailable LINDSAY ARRIETA [...] JR., HARINDER Lynn Referring Unavaila ble FABIOLA KELLY Attending Unavailable STEPANIC, JR., HARINDER Lynn Referring Unavaila ble FABIOLA KELLY Attending Unavailable STEPANIC, JR., HARINDER Lynn Referring Unavaila ble DEMARFELIZ BRYANT Attending Unavailable STEPANIC, JR., HARINDER Lynn Attending Unavaila ble FELIZ BENZ Attending Unavailable SHA, DIAZ Attending Unavailable DEREKEREShelby, DIAZ Attending Unavailable ARIANNA MILLER Attending Unavailable BARRY SNOWDEN Attending Unavailable BARRY SNOWDEN Attending Unavailable SHA, DIAZ Attending Unavailable FELIZ BENZ Attending Unavailable Allergies Allergy Classification Reported Allergen(s) Allergy Type Date of Onset Reaction(s) Facility (20 sources) Sulfamethoxazole / Trimethoprim; Translations: [SULFAMETHOXAZOLE-TR IMETHOPRIM] Drug Allergy 2 Itching, Hives, Other (See Comments) [facility] (1 source) Amoxicillin / Clavulanate Drug Allergy [facility] (1 source) levoFLOXacin Drug Allergy 0 [facility] (2 sources) Sulfamethoxazole / Trimethoprim; Translations: [Bactrim] Drug Allergy 3 [facility] Medications Current Medications Medication Drug [...] mouth every six hours for pain HYDROcodone-acetaminophen ([place]) 5-325 MG tablet Indications: Post-operative pain Take 1 tablet by mouth every 6 (six) hours if needed for severe pain for up to 3 days 12 tablet 06/14/2024 06/17/2024 Active Start: 08-10-2023 take 1 tablet by raegan th four times daily as needed for pain HYDROcodone-acetaminophen ([place]) 5-325 MG tablet Indications: Cavitary lesion of [...] MG tablet every 12 (twelve) hours Active [id number] actuat albuterol 0.09 mg/actuat metered dose [...] needed for Anxiety. 0 Active Continuous Glucose Long Term Care Administrator (FreeStyle Crystal 2 [place]) device (7 sources) Start: 10-25-2024 End: 11-07-2024 Continuous Glucose Long Term Care Administrator (FreeStyle Crystal 2 [place]) device Indications: Type 2 diabetes mellitus with microalbuminuria, with long-term current use of insulin (CMS/HCC) Test once daily 1 each 10/25/2024 11/07/2024 Discontinued Start: 10-25-2024 Continuous Glu cose Long Term Care Administrator (FreeStyle Crystal 2 [place]) device Indications: Type 2 diabetes mellitus with microalbuminuria, with long-term current use of insulin (CMS/HCC) Test once daily 1 each 10/25/2024 Active Continuous Glucose Long Term Care Administrator (FreeStyle Crystal 3 [place]) device (20 sources) Start: 11-07-2024 Continuous Glu cose Long Term Care Administrator (FreeStyle Crystal 3 [place]) device Indications: Type 2 diabetes mellitus with hyperglycemia, with long-term current use of insulin ([facility]) 1 Application continuously 1 each 11/07/2024 Active Start: 11-07-2024 End: 11-07-2024 Continuous Glucose Long Term Care Administrator (FreeStyle Crystal 3 [place]) device Indications: Type 2 diabetes mellitus with hyperglycemia, with long-term current use of insulin (CMS/HCC) 1 Application continuously 1 each 11/07/2024 11/07/2024 Discontinued Start: 11-07-2024 Continuous Glu cose Long Term Care Administrator (FreeStyle Crystal 3 [place]) device Indications: Type 2 diabetes mellitus with [...] Sensor (F reeStyle Crystal 14 Day Sensor) [facility] Indications: Type 2 diabetes mellitus with microalbuminuria, with long-term current use of insulin (CMS/HCC) apply 1 SENSOR to back OF UPPER ARM REMOVE AND REPLACE every 14 d... (REFER TO PRESCRIPTION NOTES). 2 each 09/19/2024 09/23/2024 Discontinued (Reorder) Start: 09-19-2024 Continuous Glu cose Sensor (FreeStyle Crystal 14 Day Sensor) [facility] Indications: Type 2 diabetes mellitus with microalbuminuria, with long-term current use of insulin (CMS/HCC) apply 1 SENSOR to back OF UPPER ARM REMOVE AND REPLACE every 14 d... (REFER TO PRESCRIPTION NOTES). 2 each 09/19/2024 Active Continuous Glucose Sensor (FreeStyle Crystal 3 Sensor) [facility] (20 sources) Start: 04-09-2025 Continuous Glu cose Sensor (FreeStyle Crystal 3 Sensor) [facility] Indications: Type 2 diabetes mellitus with hyperglycemia, with long-term current use of insulin ([facility]) 1 Units 1 (one) time per week 1 each 04/09/2025 Active Start: 11-04-2024 Continuous Glu cose Sensor (FreeStyle Crystal 3 Sensor) [facility] Indications: Type 2 diabetes mellitus with hyperglycemia, with long-term current use of insulin ([facility]) USE TO MONITOR BLOOD SUGAR DIRECTED. CHANGE SENSOR EVERY 14 DAYS. 2 each 11/04/2024 Active Start: 11-04-2024 Continuous Glu cose Sensor (FreeStyle Crystal 3 Sensor) [facility] Indications: Type 2 diabetes mellitus with hyperglycemia, with long-term current use of insulin (CMS/HCC) USE TO MONITOR BLOOD SUGAR DIRECTED. CHANGE SENSOR EVERY 14 DAYS. 2 each 11/04/2024 Active Start: 10-29-2024 Continuous Glu cose Sensor (FreeStyle Crystal 3 Sensor) [facility] Indications: Type 2 diabetes mellitus with hyperglycemia, with long-term current use of insulin (CMS/HCC) 1 each every 14 (fourteen) days 2 each 10/29/2024 Active Start: 09-25-2024 Continuous Glu cose Sensor (FreeStyle Crystal 3 Sensor) [facility] Indications: Type 2 diabetes mellitus with hyperglycemia, with long-term current use of insulin ([facility]) 1 each every 14 (fourteen) days 2 each 09/25/2024 Active Start: 09-23-2024 End: 09-25-2024 Continuous Glucose Sensor (F reeStyle Crystal 3 Sensor) [facility] Indications: Type 2 diabetes mellitus with hyperglycemia, with long-term current use of insulin ([facility]) 1 each every 14 (fourteen) [...] hyperglycemia, with long-term current use of insulin ([facility]) Take 1 tablet (25 mg) by mouth Daily 30 tablet 5 04/09/2025 Active Start: 11-07-2024 End: 11-07-2024 take 1 tablet by mouth once daily empagliflozin (Jardiance) 25 MG Indications: Type 2 diabetes mellitus with hyperglycemia, with long-term current use of insulin ([facility]) Take 1 tablet (25 mg) [...] hours, First dose (after last reorder) on [facility] 12/21/23 at 0600, Look-alike/sound-alike medication - verify indication for use. fluconazole 150 mg oral tablet (20 sources) Azole Antifungal Start: 03-25-2024 take 1 tablet by mouth once fluconazole (Diflucan) 150 MG tablet Take 150 mg by mouth 1 (one) time 03/25/2024 Active Start: 09-29-2021 End: 09-30-2021 fluconazole (DIFLUCAN) table t 200 mg sbrcnrmvuau-qrvsvvcoz-eekogk er (TRELEGY ELLIPTA) 200-62.5-25 mcg blister with device (20 sources) Start: 03-21-2024 take 1 puff(s) by inhalation in the morning oymnozkcknb-oadlrcifz-zfkmsfmy (TRELEGY ELLIPTA) 200-62.5-25 mcg blister with device Indications: Moderate persistent asthma without complication Inhale 1 puff in the morning. 60 each 03/21/2024 Active Start: 02-19-2024 End: 03-21-2024 take 1 puff(s) by inhalation in the morning htrgbfqjzik-tthgvinjn-whojiegw (TRELEGY ELLIPTA) 200-62.5-25 mcg blister with device Indications: Moderate persistent asthma without complication Inhale 1 puff in the morning. 60 each 02/19/2024 03/21/2024 Discontinued (Reorder) Start: 02-19-2024 take 1 puff(s) by inhalation in the morning wvepnczcicx-cckviqfkj-kkaafezn (TRELEGY ELLIPTA) 200-62.5-25 mcg blister with device [...] 0 Active ibuprofen 800 mg oral tablet (5 sources) Nonsteroidal Anti-inflammatory Drug Start: 04-14-2025 take [...] lispro (HUMALOG) inj ection vial 0-18 Units I-Lzcbkmsbdtom-Cabwo-B12-B6 (Metanx) 3-90.314-2-35 MG capsule (9 sources) Start: 10-09-2024 End: 01-07-2025 take 1 capsule by mouth in the morning A-Felnclknwkei-Gccks-B12-B6 (Metanx) 3-90.314-2-35 MG capsule Indications: Diabetic polyneuropathy [...] hyperglycemia, with long-term current use of insulin ([facility]) Inject 5 mg under the skin once [...] at Discharge) ofloxacin 3 mg/ml ophthalmic solution (20 sources) Quinolone Antimicrobial Start: 03-06-2025 ofloxacin (Ocuflox) [...] t ablet 02/24/2025 Active polyethylene glycol 3350 45379 mg powder for oral solution (1 source) [...] Active prednisoLONE acetate 10 mg/ml ophthalmic suspension (20 sources) Corticosteroid Start: 03-06-2025 prednisoLONE acetate (Pred-Forte) [...] Gluc Sensor (FreeStyle Crystal 14 Day Sensor) [facility] (20 sources) Start: 11-02-2023 End: 09-19-2024 Continuous Blood Gluc Sensor (FreeStyle Crystal 14 Day Sensor) [facility] Indications: Type 2 diabetes mellitus with microalbuminuria, with long-term current use of insulin ([facility]) apply 1 SENSOR to back OF UPPER ARM REMOVE AND REPLACE every 14 d... (REFER TO PRESCRIPTION NOTES). 2 each 11/02/2023 09/19/2024 Discontinued (Reorder) Start: 11-02-2023 Continuous Blo od Gluc Sensor (FreeStyle Crystal 14 Day Sensor) [facility] Indications: Type 2 diabetes mellitus with microalbuminuria, with long-term current use of insulin (CMS/HCC) apply 1 SENSOR to back OF UPPER ARM REMOVE AND REPLACE every 14 d... (REFER TO PRESCRIPTION NOTES). 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01 [facility] Immature granulocytes/100 WBC (Bld) 0.1 % 0.0 - 0.5 % [facility] Interpretation and review of laboratory results Abnormal [facility] LYMPHOCYTES ABSOLUTE AUTO 2.5 [facility] Lymphocytes/100 WBC (Bld) 33.5 % 20.5 - 60.0 % [facility] MCH (RBC) [Entitic mass] 28.8 pg 26.7 - 34.0 pg [facility] MCHC (RBC) [Mass/Vol] 31.6 g/dL 29.9 - 35.2 g/dL [facility] MCV (RBC) [Entitic vol] 91.1 fL 81.0 - 99.0 fL [facility] MONOCYTES ABSOLUTE AUTO 0.4 [facility] Monocytes/100 WBC (Bld) 5.4 % 1.7 - 12.0 % [facility] NEUTROPHILS ABSOLUTE AUTO 4.4 [facility] Neutrophils/100 WBC (Bld) 59.5 % 43.0 - 75.0 % [facility] Platelet mean volume (Bld) [Entitic vol] 9.3 fL Low 9.5 - 13.5 fL [facility] EO # 0.1 [facility] PLT 168 [facility] RBC 4.59 [facility] WBC 7.4 [facility] MR KNEE LT WO CONon 03-04-[address] [address] Magnetic Resonance Report Signed Patient: CARISSA SANTOS MR#: [id number] : 1980 Acct:[id number] Age/Sex: 44 / F ADM Date: 03/04/25 Loc: MRI Attending Dr: Shama KAPLAN Ordering Physician: Shama Medina Date of Service: 03/04/25 Procedure(s): MR knee LT wo con Accession Number(s): [id number] cc: Shama Medina; Diaz Dalton M.D. [place] [id number] Patient Name: CARISSA SANTOS MRN: [id number] date: 1980 Sex: F Assigned Patient Location: MRI Current Patient Location: MRI Accession/Order Number: [id number] Exam Date: 03/04/2025 15:15 Report Date: 03/04/2025 [...] Torres M.D. 03/04/2025 3:29 PM Dictation Location: [place] [address] Electronically authenticated by: [id number] Y Date: 03/04/2025 15:29 Dictated By: Gallito Torres D.O. Signed By: 03/04/25 1532 DD/ 1529 TD/TT: Guest Laundry Attendant: [facility] Rad[facility], Radiologist, MD - 03/04/2025 [place] [address] Magnetic Resonance Report Signed Patient: CARISSA SANTOS MR#: [id number] : 1980 Acct:[id number] Age/Sex: 44 / F ADM Date: 03/04/25 Loc: MRI Attending Dr: Shama KAPLAN Ordering Physician: Shama Medina Date of Service: 03/04/25 Procedure(s): MR knee LT wo con Accession Number(s): [id number] cc: Shama Medina; Diaz Dalton M.D. [place] [address] Patient Name: CARISSA SANTOS MRN: [id number] date: 1980 Sex: F Assigned Patient Location: MRI Current Patient Location: MRI Accession/Order Number: [id number] Exam Date: 03/04/2025 15:15 Report Date: 03/04/2025 [...] Torres M.D. 03/04/2025 3:29 PM [facility]ict[facility] Electronically authenticated by: [id number] Y Date: 03/04/2025 15:29 Dictated By: Gallito Torres D.O. Signed By: 03/04/25 1532 DD/ 1529 TD/TT: Guest Laundry Attendant: [facility] [email or web address] Radiology Study observation (narrative) [facility] MR KNEE LT WO CONOrdered By: Radiologist Radiology on 03-04-2025 [employer] Work Phone: XR Knee - left 1 or 2 Viewso n 02-25-2025 Image result: AP and Lateral left knee: No acute fracture or dislocation [place] suspected distal femur Symmetric joint space preservation Mild effusion Impression: no acute bony process left knee. [email or web address] Radiology Study observation (narrative) [facility] [email or web address] HGB A1C (GLYCO-HGB)on 2024 Glucose [Mass/Vol] 321 mg/dL Normal [facility] Comment on above: Performed By: #### H A1C #### [facility] ([id number]) [address], [address] [place] [address] HbA1c (Bld) [Mass fraction] 12.8 % High 4.4-5.6 [facility] Comment on above: Result Comment: NOTE ADA Guidelines Result HgbA1c Normal : less than 5.7 % Prediabetes : 5.7 % to 6.4 % Diabetes : > 6.4 % Use with caution in patients with abnormal hemoglobin variants as the half-life of red blood cells and in vivo glycation rates are affected. Performed By: #### H A1C #### [facility] ([id number]) [address], [address] [place] [address] HbA1c (Bld) [Mass fraction]o n 11-01-2024 Average glucose Estimated from glycated hemoglobin (Bld) [Mass/Vol] 321 mg/dL [facility] [email or web address] Comment on above: PERFORMED AT [facility] [address],[place] [address] Interpretation and review of laboratory results Abnormal [facility] [employer] Hemoglobin A1con 11-01-2024 HbA1c (Bld) [Mass fraction] 12.8 % High 4.4 - 5.6 % [facility] [email or web address] Comment on above: NOTE ADA Guidelines Result HgbA1c Normal : less than 5.7 % Prediabetes : 5.7 % to 6.4 % Diabetes : > 6.4 % Use with caution in patients with abnormal hemoglobin variants as the half-life of red blood cells and in vivo glycation rates are affected. Beta hydroxybutyrate [Moles/ Vol]on 10-27-2024 BetaHydroxybutyrate 1.14 mmol/L High 0.02-0.27 [facility] Comment on above: Performed By: #### H A1C #### [facility] ([id number]) [address], [address] [place] [address] CBC AND AUTO DIFFon 10-27-19 ABSOLUTE BASOPHIL 0.0 X10E9/L Normal 0.0-0.2 [facility] Comment on above: Performed By: #### H A1C #### [facility] ([id number]) [address], [address] [place] [address] ABSOLUTE NEUTROPHIL 3.5 X10E9/L Normal 1.5-6.6 [facility] Comment on above: Performed By: #### H A1C #### [facility] ([id number]) [address], [address] [place] [address] Basophils/100 WBC (Bld) 0.5 % Normal [facility] Comment on above: Performed By: #### H A1C #### [facility] ([id number]) [address], [address] [place] [address] Eosinophils (Bld) [#/Vol] 0.1 10*3/uL Normal 0.0-0.4 [facility] Comment on above: Performed By: #### H A1C #### [facility] ([id number]) [address], [address] [place] [address] Eosinophils/100 WBC (Bld) 0.8 % Normal [facility] Comment on above: Performed By: #### H A1C #### [facility] ([id number]) [address], [address] [place] [address] Erythrocyte distribution width (RBC) [Ratio] 13.8 % Normal 11.5-15.0 [facility] Comment on above: Performed By: #### H A1C #### [facility] ([id number]) [address], [address] [place] [address] Hematocrit (Bld) [Volume fraction] 44.0 % Normal 35-47 [facility] Comment on above: Performed By: #### H A1C #### [facility] ([id number]) [address], [address] [place] [address] Hemoglobin (Bld) [Mass/Vol] 15.1 g/dL Normal 11.7-15.5 [facility] Comment on above: Performed By: #### H A1C #### [facility] ([id number]) [address], [address] [place] [address] Lymphocytes (Bld) [#/Vol] 2.7 10*3/uL Normal 1.0-3.5 [facility] Comment on above: Performed By: #### H A1C #### [facility] ([id number]) [address], [address] [place] [address] Lymphocytes/100 WBC (Bld) 39.7 % Normal [facility] Comment on above: Performed By: #### H A1C #### [facility] ([id number]) [address], [address] [place] [address] MCH (RBC) [Entitic mass] 28.7 pg Normal 27-34 [facility] Comment on above: Performed By: #### H A1C #### [facility] ([id number]) [address], [address] [place] [address] MCHC (RBC) [Mass/Vol] 34.4 g/dL Normal 32-36 [facility] Comment on above: Performed By: #### H A1C #### [facility] ([id number]) [address], [address] [place] [address] MCV (RBC) [Entitic vol] 84 fL Normal 80-100 [facility] Comment on above: Performed By: #### H A1C #### [facility] ([id number]) [address], [address] [place] [address] Monocytes (Bld) [#/Vol] 0.4 10*3/uL Normal 0-0.9 [facility] Comment on above: Performed By: #### H A1C #### [facility] ([id number]) [address], [address] [place] [address] Monocytes/100 WBC (Bld) 6.5 % Normal [facility] Comment on above: Performed By: #### H A1C #### [facility] ([id number]) [address], [address] [place] [address] Neutrophils/100 WBC (Bld) 52.5 % Normal [facility] Comment on above: Performed By: #### H A1C #### [facility] ([id number]) [address], [address] [place] [address] Platelet mean volume (Bld) [Entitic vol] 7.8 fL Normal 7-12 [facility] Comment on above: Performed By: #### H A1C #### [facility] ([id number]) [address], [address] [place] [address] Platelets (Bld) [#/Vol] 211 10*3/uL Normal 150-450 [facility] Comment on above: Performed By: #### H A1C #### [facility] ([id number]) [address], [address] [place] [address] RBC COUNT 5.26 X10E12/L High 3.80-5.20 [facility] Comment on above: Performed By: #### H A1C #### [facility] ([id number]) [address], [address] [place] [address] WBC (Bld) [#/Vol] 6.7 10*3/uL Normal 4.0-11.0 [facility] Comment on above: Performed By: #### H A1C #### [facility] ([id number]) [address], [address] [place] [address] COMPREHENSIVE METABOLIC PANE Rodriguez 10-27-2024 Albumin [Mass/Vol] 4.1 g/dL Normal 3.2-5.3 [facility] Comment on above: Performed By: #### H A1C #### [facility] ([id number]) [address], [address] [place] [address] ALP [Catalytic activity/Vol] 82 U/L Normal 39-130 [facility] Comment on above: Performed By: #### H A1C #### [facility] ([id number]) [address], [address] [place] [address] ALT [Catalytic activity/Vol] 35 U/L High 0-31 [facility] Comment on above: Performed By: #### H A1C #### [facility] ([id number]) [address], [address] [place] [address] Anion gap [Moles/Vol] 9 mmol/L Normal 5-15 [facility] Comment on above: Performed By: #### H A1C #### [facility] ([id number]) [address], [address] [place] [address] AST [Catalytic activity/Vol] 27 U/L Normal 0-41 [facility] Comment on above: Performed By: #### H A1C #### [facility] ([id number]) [address] [place] [address] Bilirubin [Mass/Vol] 0.4 mg/dL Normal 0.3-1.2 [facility] Comment on above: Performed By: #### H A1C #### [facility] ([id number]) [address], [address] [place] [address] Calcium [Mass/Vol] 9.2 mg/dL Normal 8.5-10.5 [facility] Comment on above: Performed By: #### H A1C #### [facility] ([id number]) [address], [address] [place] [address] Chloride [Moles/Vol] 101 mmol/L Normal 98-109 [facility] Comment on above: Performed By: #### H A1C #### [facility] ([id number]) [address], [address] [place] [address] CO2 [Moles/Vol] 26 mmol/L Normal 22-32 [facility] Comment on above: Performed By: #### H A1C #### [facility] ([id number]) [address] [place] [address] Creatinine [Mass/Vol] 1.06 mg/dL High 0.40-1.00 [facility] Comment on above: Result Comment: METH OD TRACEABLE TO IDMS STANDARD Performed By: #### H A1C #### [facility] ([id number]) [address] [address] [place] [address] GFR/1.73 sq M.predicted among non-blacks MDRD (S/P/Bld) [Vol rate/Area] 66 mL/min/{1.73_m2} Normal >59 [facility] Comment on above: Result Comment: Reported eGFR is based on the CKD-EPI 2020 equation that does not use a race coefficient. Performed By: #### H A1C #### [facility] ([id number]) [address] [place] [address] Glucose [Mass/Vol] 148 mg/dL High 65-99 [facility] Comment on above: Performed By: #### H A1C #### [facility] ([id number]) [address] [place] [address] Potassium [Moles/Vol] 3.6 mmol/L Normal 3.5-5.0 [facility] Comment on above: Performed By: #### H A1C #### [facility] ([id number]) [address], [address] [place] [address] Protein [Mass/Vol] 7.7 g/dL Normal 6.0-8.0 [facility] Comment on above: Performed By: #### H A1C #### [facility] ([id number]) [address], [address] [place] [address] Sodium [Moles/Vol] 136 mmol/L Normal 134-146 [facility] Comment on above: Performed By: #### H A1C #### [facility] ([id number]) [address], [address] [place] [address] Urea nitrogen [Mass/Vol] 28 mg/dL High 5-23 [facility] Comment on above: Performed By: #### H A1C #### [facility] ([id number]) [address], [address] [place] [address] LIPASEon 10-27-2024 Lipase [Catalytic activity/Vol] 24 U/L Normal 17-40 [facility] Comment on above: Performed By: #### H A1C #### [facility] ([id number]) [address], [address] [place] [address] URN MACROSCOPIC NURon 2024 BILIRUBIN SMITHA Negative Normal NEG [facility] Comment on above: Performed By: #### H A1C #### [facility] ([id number]) [address], [address] [place] [address] BLOOD/HGB SMITHA Trace Abnormal NEG [facility] Comment on above: Performed By: #### H A1C #### [facility] ([id number]) [address] [facility] [place] [address] GLUCOSE SMITHA >=1000 Abnormal NEG [facility] Comment on above: Performed By: #### H A1C #### [facility] ([id number]) [address] [place] [address], [address] [place] [address] KETONES SMITHA Negative Normal NEG [facility] Comment on above: Performed By: #### H A1C #### [facility] ([id number]) [address] [place] [address], [address] [place] [address] LEUKOCYTE ESTERASE SMITHA Negative Normal NEG [facility] Comment on above: Performed By: #### H A1C #### [facility] ([id number]) [address] [place] [address], [address] [place] [address] NITRITE SMITHA Negative Normal NEG [facility] Comment on above: Performed By: #### H A1C #### [facility] ([id number]) [address] [place] [address], [address] [place] [address] PH SMITHA 5.0 Normal 5.0-8.5 [facility] Comment on above: Performed By: #### H A1C #### [facility] ([id number]) [address] [place] [address], [address] [place] [address] PROTEIN SMITHA Negative Normal NEG [facility] Comment on above: Performed By: #### H A1C #### [facility] ([id number]) [address] [place] [address], [address] [place] [address] SPECIFIC GRAVITY SMITHA 1.010 Normal 1.003-1.035 [facility] Comment on above: Performed By: #### H A1C #### [facility] ([id number]) [address] [place] [address], [address] [place] [address] UROBILINOGEN SMITHA 0.2 eu/dL Normal <1.[address] [facility] Comment on above: Performed By: #### H A1C #### [facility] ([id number]) [address] [place] [address], [address] [place] [address] VENOUS BLOOD GASon 5 BIBI'S TEST Normal [facility] Comment on above: Performed By: #### H A1C #### [facility] ([id number]) [address], [address] [place] [address] Base excess Calc (Bld) [Moles/Vol] 2.0 mmol/L Normal 0.0-2.0 [facility] Comment on above: Performed By: #### H A1C #### [facility] ([id number]) [address], [address] [place] [address] Body temperature 98.6 [degF] Normal 37.0 [facility] Comment on above: Performed By: #### H A1C #### [facility] ([id number]) [address], [address] [place] [address] HCO3 (Bld) [Moles/Vol] 27.7 mmol/L High 20.0-24.0 [facility] Comment on above: Performed By: #### H A1C #### [facility] ([id number]) [address], [address] [place] [address] Oxygen saturation in Blood 48.0 % Low >80.0 [facility] Comment on above: Performed By: #### H A1C #### [facility] ([id number]) [address], [address] [place] [address] OXYGEN SOURCE RoomAir Normal [facility] Comment on above: Performed By: #### H A1C #### [facility] ([id number]) [address], [address] [place] [address] PCO2, VENOUS 48.1 MMHG Normal 35-50 [facility] Comment on above: Performed By: #### H A1C #### [facility] ([id number]) [address], [address] [place] [address] PH, VENOUS 7.368 Normal 7.320-7.420 [facility] Comment on above: Performed By: #### H A1C #### [facility] ([id number]) [address] [place] [address], [address] [place] [address] PO2, VENOUS 27 MMHG Low 30-50 [facility] Comment on above: Performed By: #### H A1C #### [facility] ([id number]) [address] [place] [address], [address] [place] [address] SAMPLE SITE N/A Normal [facility] Comment on above: Performed By: #### H A1C #### [facility] ([id number]) [address] [place] [address], [facility] [address] [place] [address] SAMPLE TYPE VENOUS Normal [facility] Comment on above: Performed By: #### H A1C #### [facility] ([id number]) [address] [place] [address], [facility] [address] [place] [address] Surgical Pathologyon 025 Surgical Pathology Normal [facility] Comment on above: Result Comment: [facility] [employer] [facility] [address] [place] [address] Surgical Pathology Consultation Patient Name:CARISSA SANTOS:1980 (Age: 44)Gender:FTaken:09/12/2024Reported:09/17/2024Physician(s):Aliya Solorzano D.O. ([phone])Copy To: Rec. #:[id number]: #[id number] Final Pathologic Diagnosis Hepatic flexure polyp, biopsies: Fecal material, nondiagnostic. No colonic tissue present. Report Electronically Signed Out ssi/09/17/2024Taras Lara M.[place] [address], License number: [id number]. Clinical History Screening Gross Description Received in formalin labeled ANGELA, hepatic are pale-mims soft tissue fragments admixed with friable bits two material, 0.5 x 0.2 x 0.1 cm in aggregate. The specimen is filtered and entirely submitted in a single cassette. (1, ns, [id number],m4) DM. dm/09/13/2024WAK Specimen(s) Received Hepatic flexure polyp Fee Codes(s): 1; [address]7591 IGP,APTIMA HPV,AGE GDLNon AGE GDLN ACOG TESTING Note . [facility] Comment on above: TESTS RESULT FLAG UN ITS REF RANGE LAB Clinician Provided Cytology Information Source.............Cervix;Endocervix No. of containers..01 ThinPrep Vial Age Algo ACOG Keyla... 30-65 01 FLAG LEGEND: L-Low Normal,H-High Normal,LL-Alert Low,HH-Alert High <-Panic Low,>-Panic High,A-Abnormal,AA-Critical Abnormal Performed at: 01 =G [address] [address] Caroline Moore MD, HPV APTIMA Negative Negative [facility] Comment on above: This nucleic acid am plification test detects fourteen high- risk HPV types (16,18,31,33,35,39,45,51,52,56,58,59,66,68) without differentiation. Performed at: =G - [facility] [id number] Receiver Setter: Caroline Moore MD, Phone: [phone] Performed at: WB - [facility], [place] [id number] Receiver Setter: Caroline Moore MD, Phone: [phone] IGP, APTIMA HPV, RFX 16/18,45 Note . [facility] Comment on above: TESTS RESULT FLAG UN ITS REF RANGE LAB DIAGNOSIS: 02 NEGATIVE FOR INTRAEPITHELIAL LESION OR MALIGNANCY. Specimen adequacy: 02 Satisfactory for evaluation. Endocervical and/or squamous metaplastic cells (endocervical component) are present. Performed by: Saud Saravia, Fiber Optics Technician (ASCP) . 02 Note: Note 02 The [...] High,A-Abnormal,AA-Critical Abnormal Performed at: 02 WB [facility] [address] [place] [address] Caroline Moore MD, BRUSH-SPATULA CERVIX ENDOCERVIX [facility] BASIC METABOLIC PANLon 07-30 Anion gap [Moles/Vol] 8 mmol/L Normal 5-15 [facility] Comment on above: Performed By: #### B MP ####[facility] ([id number])[address] [address] [place] [address] Calcium [Mass/Vol] 9.9 mg/dL Normal 8.5-10.5 [facility] Comment on above: Performed By: #### B MP ####[facility] ([id number])[address] [address] [address] Chloride [Moles/Vol] 92 mmol/L Low 98-109 [facility] Comment on above: Performed By: #### B MP ####[facility] ([id number])[address] [address] [place] [address] CO2 [Moles/Vol] 32 mmol/L Normal 22-32 [facility] Comment on above: Performed By: #### B MP ####[facility] ([id number])[address] [address] [address] Creatinine [Mass/Vol] 0.94 mg/dL Normal 0.40-1.00 [facility] Comment on above: Result Comment: METH OD TRACEABLE TO IDMS STANDARD Performed By: #### B MP ####[facility] ([id number])[address] [address] [place] [address] GFR/1.73 sq M.predicted among non-blacks MDRD (S/P/Bld) [Vol rate/Area] 76 mL/min/{1.73_m2} Normal >59 [facility] Comment on above: Result Comment: Reported eGFR is based on the CKD-EPI 2020 equation that does not use a race coefficient. Performed By: #### B MP ####[facility] ([id number])[address] [address], [place] [address] Glucose [Mass/Vol] 577 mg/dL Critically high 65-99 [facility] Comment on above: Performed By: #### B MP ####[facility] ([id number])[address] [address], [place] [address] Potassium [Moles/Vol] 4.7 mmol/L Normal 3.5-5.0 [facility] Comment on above: Performed By: #### B MP ####[facility] ([id number])[address] [address], [place] [address] Sodium [Moles/Vol] 132 mmol/L Low 134-146 [facility] Comment on above: Performed By: #### B MP ####[facility] ([id number])[address] [place] [address] Urea nitrogen [Mass/Vol] 25 mg/dL High 5-23 [facility] Comment on above: Performed By: #### B MP ####[facility] ([id number])[address] [address] CBC AND AUTO DIFFon 07-23-20 24 ABSOLUTE BASOPHIL 0.0 X10E9/L Normal 0.0-0.2 [facility] Comment on above: Performed By: #### 7 5241-0, 80995-3, CBCA, CMP ####[facility] ([id number])[address] [place] [address] ABSOLUTE NEUTROPHIL 7.2 X10E9/L High 1.5-6.6 [facility] Comment on above: Performed By: #### 7 5241-0, 07671-7, CBCA, CMP ####[facility] ([id number])[address] [place] [address] Basophils/100 WBC (Bld) 0.2 % Normal [facility] Comment on above: Performed By: #### 7 5241-0, 03846-4, CBCA, CMP ####[facility] ([id number])[address] [place] [address] Eosinophils (Bld) [#/Vol] 0.0 10*3/uL Normal 0.0-0.4 [facility] Comment on above: Performed By: #### 7 5241-0, , CBCA, CMP ####[facility] ([id number])[address] [place] [address] Eosinophils/100 WBC (Bld) 0.2 % Normal [facility] Comment on above: Performed By: #### 7 5241-0, , CBCA, CMP ####[facility] ([id number])[address] [place] [address] Erythrocyte distribution width (RBC) [Ratio] 13.5 % Normal 11.5-15.0 [facility] Comment on above: Performed By: #### 7 5241-0, , CBCA, CMP ####[facility] ([id number])[address] [place] [address] Hematocrit (Bld) [Volume fraction] 33.7 % Low 35-47 [facility] Comment on above: Performed By: #### 7 5241-0, 22007-4, CBCA, CMP ####[facility] ([id number])[address] [place] [address] Hemoglobin (Bld) [Mass/Vol] 11.1 g/dL Low 11.7-15.5 [facility] Comment on above: Performed By: #### 7 5241-0, , CBCA, CMP ####[facility] ([id number])[address] [place] [address] Lymphocytes (Bld) [#/Vol] 2.2 10*3/uL Normal 1.0-3.5 [facility] Comment on above: Performed By: #### 7 5241-0, , CBCA, CMP ####[facility] ([id number])[address] [place] [address] Lymphocytes/100 WBC (Bld) 21.9 % Normal [facility] Comment on above: Performed By: #### 7 5241-0, , CBCA, CMP ####[facility] ([id number])[address] [place] [address] MCH (RBC) [Entitic mass] 28.7 pg Normal 27-34 [facility] Comment on above: Performed By: #### 7 5241-0, , CBCA, CMP ####[facility] ([id number])[address] [place] [address] MCHC (RBC) [Mass/Vol] 32.9 g/dL Normal 32-36 [facility] Comment on above: Performed By: #### 7 5241-0, , CBCA, CMP ####[facility] ([id number])[address] [place] [address] MCV (RBC) [Entitic vol] 87 fL Normal 80-100 [facility] Comment on above: Performed By: #### 7 5241-0, , CBCA, CMP ####[facility] ([id number])[address] [place] [address] Monocytes (Bld) [#/Vol] 0.5 10*3/uL Normal 0-0.9 [facility] Comment on above: Performed By: #### 7 5241-0, , CBCA, CMP ####[facility] ([id number])[address] [place] [address] Monocytes/100 WBC (Bld) 5.4 % Normal [facility] Comment on above: Performed By: #### 7 5241-0, 37484-9, CBCA, CMP ####[facility] ([id number])[address] [place] [address] Neutrophils/100 WBC (Bld) 72.3 % Normal [facility] Comment on above: Performed By: #### 7 5241-0, , CBCA, CMP ####[facility] ([id number])[address] [place] [address] Platelet mean volume (Bld) [Entitic vol] 7.4 fL Normal 7-12 [facility] Comment on above: Performed By: #### 7 5241-0, , CBCA, CMP ####[facility] ([id number])[address] [place] [address] Platelets (Bld) [#/Vol] 190 10*3/uL Normal 150-450 [facility] Comment on above: Performed By: #### 7 5241-0, , CBCA, CMP ####[facility] ([id number])[address] [place] [address]282 RBC COUNT 3.86 X10E12/L Normal 3.80-5.20 [facility] Comment on above: Performed By: #### 7 5241-0, 42837-0, CBCA, CMP ####[facility] ([id number])[address] [place] [address] WBC (Bld) [#/Vol] 10.0 10*3/uL Normal 4.0-11.0 [facility] Comment on above: Performed By: #### 7 5241-0, 30801-5, CBCA, CMP ####[facility] ([id number])[address] [place] [address]60[address] COMPREHENSIVE METABOLIC PANE Rodriguez 07-23-2024 Albumin [Mass/Vol] 3.3 g/dL Normal 3.2-5.3 [facility] Comment on above: Performed By: #### 7 5241-0, 02237-9, CBCA, CMP ####[facility] ([id number])[address] [place] [address] ALP [Catalytic activity/Vol] 66 U/L Normal 39-130 [facility] Comment on above: Performed By: #### 7 5241-0, 35126-6, CBCA, CMP ####[facility] ([id number])[address] [place] [address] 49800 ALT [Catalytic activity/Vol] 16 U/L Normal 0-31 [facility] Comment on above: Performed By: #### 7 5241-0, , CBCA, CMP ####[facility] ([id number])[address] [place] [address] 18222 Anion gap [Moles/Vol] 9 mmol/L Normal 5-15 [facility] Comment on above: Performed By: #### 7 5241-0, 97510-1, CBCA, CMP ####[facility] ([id number])[address] [place] [address] 25612 AST [Catalytic activity/Vol] 11 U/L Normal 0-41 [facility] Comment on above: Performed By: #### 7 5241-0, 72808-3, CBCA, CMP ####[facility] ([id number])[address] [place] [address] 32089 Bilirubin [Mass/Vol] 0.3 mg/dL Normal 0.3-1.2 [facility] Comment on above: Performed By: #### 7 5241-0, 33673-5, CBCA, CMP ####[facility] ([id number])[address] [place] [address] Calcium [Mass/Vol] 8.5 mg/dL Normal 8.5-10.5 [facility] Comment on above: Performed By: #### 7 5241-0, 91839-1, CBCA, CMP ####[facility] ([id number])[address] [place] [address]777 Chloride [Moles/Vol] 100 mmol/L Normal 98-109 [facility] Comment on above: Performed By: #### 7 5241-0, , CBCA, CMP ####[facility] ([id number])[address] [place] [address] CO2 [Moles/Vol] 24 mmol/L Normal 22-32 [facility] Comment on above: Performed By: #### 7 5241-0, , CBCA, CMP ####[facility] ([id number])[address] [place] [address]128 Creatinine [Mass/Vol] 1.13 mg/dL High 0.40-1.00 [facility] Comment on above: Result Comment: METH OD TRACEABLE TO IDMS STANDARD Performed By: #### 7 5241-0, , CBCA, CMP ####[facility] ([id number])[address] [place] [address] 32812 GFR/1.73 sq M.predicted among non-blacks MDRD (S/P/Bld) [Vol rate/Area] 61 mL/min/{1.73_m2} Normal >59 [facility] Comment on above: Result Comment: Reported eGFR is based on the CKD-EPI 2020 equation that does not use a race coefficient. Performed By: #### 7 5241-0, 19507-6, CBCA, CMP ####[facility] ([id number])[address] [place] [address] 13282 Glucose [Mass/Vol] 307 mg/dL High 65-99 [facility] Comment on above: Performed By: #### 7 5241-0, 35453-3, CBCA, CMP ####[facility] ([id number])[address] [place] [address] 97656 Potassium [Moles/Vol] 4.2 mmol/L Normal 3.5-5.0 [facility] Comment on above: Performed By: #### 7 5241-0, , CBCA, CMP ####[facility] ([id number])[address] [place] [address] 17452 Protein [Mass/Vol] 6.0 g/dL Normal 6.0-8.0 [facility] Comment on above: Performed By: #### 7 5241-0, , CBCA, CMP ####[facility] ([id number])[address] [place] [address] 03585 Sodium [Moles/Vol] 133 mmol/L Low 134-146 [facility] Comment on above: Performed By: #### 7 5241-0, 93552-4, CBCA, CMP ####[facility] ([id number])[address] [place] [address]6110 Urea nitrogen [Mass/Vol] 42 mg/dL High 5-23 [facility] Comment on above: Performed By: #### 7 5241-0, 51032-4, CBCA, CMP ####[facility] ([id number])[address] [place] [address]802 Glucose Glucometer (BldC) [M ass/Vol]on 07-23-2024 Glucose [Mass/Vol] 169 mg/dL High 65-99 [facility] Glucose [Mass/Vol] 260 mg/dL High 65-99 [facility] MAGNESIUMon 07-23-2024 Magnesium [Mass/Vol] 2.2 mg/dL Normal 1.8-2.6 [facility] Comment on above: Performed By: #### 7 5241-0, 49833-0, CBCA, CMP ####[facility] ([id number])[address] [place] [address] 22708 Procalcitonin IA [Mass/Vol]o n 07-23-2024 PROCALCITONIN 0.20 ng/mL High <0.05 [facility] Comment on above: Result Comment: NOTE <0.50 ng/mL - Low risk of severe sepsis and/or septic shock. <2.00 ng/mL - Recommend retesting within 6-24 hours. >2.00 ng/mL - High risk of sepsis and/or septic shock. Performed By: #### 7 5241-0, , CBCA, CMP ####[facility] ([id number])[address] [place] [address] CBC AND AUTO DIFFon 07-22-20 ABSOLUTE BASOPHIL 0.0 X10E9/L Normal 0.0-0.2 [facility] Comment on above: Performed By: #### C JOSÉ LUIS, , CBCA ####[facility] ([id number])[address] [place] [address]7571#### HA1C ####[facility] ([id number])[address], [address] [place] [address] ABSOLUTE NEUTROPHIL 7.1 X10E9/L High 1.5-6.6 [facility] Comment on above: Performed By: #### C JOSÉ LUIS, , CBCA ####[facility] ([id number])[address] [place] [address]#### HA1C ####[facility] ([id number])[address], [address], [place] [address] Basophils/100 WBC (Bld) 0.1 % Normal [facility] Comment on above: Performed By: #### Shane ORDONEZ, , CBCA ####[facility] ([id number])[address] [place] [address]#### HA1C ####[facility] ([id number])[address], [address], [place] [address] Eosinophils (Bld) [#/Vol] 0.0 10*3/uL Normal 0.0-0.4 [facility] Comment on above: Performed By: #### Shane ORDONEZ, , CBCA ####[facility] ([id number])[address] [place] [address]#### HA1C ####[facility] ([id number])[address] [address] Eosinophils/100 WBC (Bld) 0.0 % Normal [facility] Comment on above: Performed By: #### Shane ORDONEZ, , CBCA ####[facility] ([id number])[address] [place] [address]#### HA1C ####[facility] ([id number])[address] [address] [place] [address] Erythrocyte distribution width (RBC) [Ratio] 13.2 % Normal 11.5-15.0 [facility] Comment on above: Performed By: #### Shane ORDONEZ, , CBCA ####[facility] ([id number])[address] [place] [address]#### HA1C ####[facility] ([id number])[address] [address], [place] [address] Hematocrit (Bld) [Volume fraction] 37.6 % Normal 35-47 [facility] Comment on above: Performed By: #### C JOSÉ LUIS, , CBCA ####[facility] ([id number])[address] [place] [address] [address]#### HA1C ####[facility] ([id number])[address], [address] [place] [address] Hemoglobin (Bld) [Mass/Vol] 12.4 g/dL Normal 11.7-15.5 [facility] Comment on above: Performed By: #### C JOSÉ LUIS, , CBCA ####[facility] ([id number])[address] [place] [address] 22565#### HA1C ####[facility] ([id number])0 [facility], [address] [place] [address] 43006 Lymphocytes (Bld) [#/Vol] 0.5 10*3/uL Low 1.0-3.5 [facility] Comment on above: Performed By: #### Shane ORDONEZ, , CBCA ####[facility] ([id number])[address] [place] [address] 49325#### HA1C ####[facility] ([id number])0 [facility] [address] [place] [address] 64057 Lymphocytes/100 WBC (Bld) 6.8 % Normal [facility] Comment on above: Performed By: #### Shane ORDONEZ, , CBCA ####[facility] ([id number])[address] [place] [address] 34135#### HA1C ####[facility] ([id number])[address], [address], [place] [address] MCH (RBC) [Entitic mass] 28.9 pg Normal 27-34 [facility] Comment on above: Performed By: #### C JOSÉ LUIS, , CBCA ####[facility] ([id number])[address] [place] [address] 71570#### HA1C ####[facility] ([id number])[address], [address] [address] MCHC (RBC) [Mass/Vol] 33.1 g/dL Normal 32-36 [facility] Comment on above: Performed By: #### C JOSÉ LUIS, , CBCA ####[facility] ([id number])[address] [place] [address] 29281#### HA1C ####[facility] ([id number])[address], [address], [place] [address] MCV (RBC) [Entitic vol] 87 fL Normal 80-100 [facility] Comment on above: Performed By: #### Shane ORDONEZ, , CBCA ####[facility] ([id number])[address] [place] [address] 31434#### HARiana ####[facility] ([id number])[address], [address], [place] [address] Monocytes (Bld) [#/Vol] 0.1 10*3/uL Normal 0-0.9 [facility] Comment on above: Performed By: #### Shane ORDONEZ, , CBCA ####[facility] ([id number])[address] [place] [address] 19044#### HA1C ####[facility] ([id number])[address], [address] [address] Monocytes/100 WBC (Bld) 0.8 % Normal [facility] Comment on above: Performed By: #### Shane ORDONEZ, , CBCA ####[facility] ([id number])[address] [place] [address] 13537#### HA1C ####[facility] ([id number])[address] [facility], [address] [address] Neutrophils/100 WBC (Bld) 92.3 % Normal [facility] Comment on above: Performed By: #### C JOSÉ LUIS, , CBCA ####[facility] ([id number])[address] [place] [address] 45276#### HA1C ####[facility] ([id number])[address] [place] [address] 38203 Platelet mean volume (Bld) [Entitic vol] 7.5 fL Normal 7-12 [facility] Comment on above: Performed By: #### Shane ORDONEZ, , CBCA ####[facility] ([id number])[address] [place] [address] 10284#### HA1C ####[facility] ([id number])[address] [place] [address]363 Platelets (Bld) [#/Vol] 171 10*3/uL Normal 150-450 [facility] Comment on above: Performed By: #### Shane ORDONEZ, , CBCA ####[facility] ([id number])[address] [place] [address] 21126#### HA1C ####[facility] ([id number])[address] [place] [address] 48416 RBC COUNT 4.31 X10E12/L Normal 3.80-5.20 [facility] Comment on above: Performed By: #### Shane ORDONEZ, , CBCA ####[facility] ([id number])[address] [place] [address] 97637#### HA1C ####[facility] ([id number])[address] [place] [address], [address] [place] [address]918 WBC (Bld) [#/Vol] 7.7 10*3/uL Normal 4.0-11.0 [facility] Comment on above: Performed By: #### C JOSÉ LUIS, , CBCA ####[facility] ([id number])[address] [place] [address] 97573#### HA1C ####[facility] ([id number])[address] [place] [address], [address] [place] [address] COMPREHENSIVE METABOLIC PANE [facility] 07-22-2024 Albumin [Mass/Vol] 3.5 g/dL Normal 3.2-5.3 [facility] Comment on above: Performed By: #### C JOSÉ LUIS, , CBCA ####[facility] ([id number])[address] [place] [address] 53267#### HA1C ####[facility] ([id number])[address] [place] [address] 29220 ALP [Catalytic activity/Vol] 80 U/L Normal 39-130 [facility] Comment on above: Performed By: #### C JOSÉ LUIS, , CBCA ####[facility] ([id number])[address] [place] [address] 88920#### HA1C ####[facility] ([id number])[address] [place] [address] [place] [address] 71598 ALT [Catalytic activity/Vol] U/L Normal 0-31 [facility] Comment on above: Performed By: #### C JOSÉ LUIS, , CBCA ####[facility] ([id number])[address] [place] [address] 24040#### HA1C ####[facility] ([id number])[address], [address], [place] [address] Anion gap [Moles/Vol] 16 mmol/L High 5-15 [facility] Comment on above: Performed By: #### C JOSÉ LUIS, , CBCA ####[facility] ([id number])[address] [place] [address] 71254#### HA1C ####[facility] ([id number])[address], [address], [place] [address] AST [Catalytic activity/Vol] 26 U/L Normal 0-41 [facility] Comment on above: Performed By: #### C JOSÉ LUIS, , CBCA ####[facility] ([id number])[address] [place] [address] 98940#### HA1C ####[facility] ([id number])[address], [address] [place] [address] Bilirubin [Mass/Vol] 0.4 mg/dL Normal 0.3-1.2 [facility] Comment on above: Performed By: #### C JOSÉ LUIS, , CBCA ####[facility] ([id number])[address] [place] [address] 38003#### HA1C ####[facility] ([id number])[address], [address], [place] [address] Calcium [Mass/Vol] 8.9 mg/dL Normal 8.5-10.5 [facility] Comment on above: Performed By: #### C JOSÉ LUIS, , CBCA ####[facility] ([id number])[address] [place] [address] 44194#### HA1C ####[facility] ([id number])[address], [address], [place] [address] Chloride [Moles/Vol] 99 mmol/L Normal 98-109 [facility] Comment on above: Performed By: #### C JOSÉ LUIS, , CBCA ####[facility] ([id number])[address] [place] [address] 14455#### HA1C ####[facility] ([id number])[address], [address] [place] [address]46 CO2 [Moles/Vol] 20 mmol/L Low 22-32 [facility] Comment on above: Performed By: #### C JOSÉ LUIS, , CBCA ####[facility] ([id number])[address] [place] [address] 46301#### HA1C ####[facility] ([id number])[address], [address] [address] Creatinine [Mass/Vol] 1.14 mg/dL High 0.40-1.00 [facility] Comment on above: Result Comment: METH OD TRACEABLE TO IDMS STANDARD Performed By: #### Shane ORDONEZ, , CBCA ####[facility] ([id number])[address] [place] [address] 58155#### HA1C ####[facility] ([id number])[address] [address] GFR/1.73 sq M.predicted among non-blacks MDRD (S/P/Bld) [Vol rate/Area] 60 mL/min/{1.73_m2} Normal >59 [facility] Comment on above: Result Comment: Reported eGFR is based on the CKD-EPI 2020 equation that does not use a race coefficient. Performed By: #### Shane ORDONEZ, , CBCA ####[facility] ([id number])[address] [place] [address] 65601#### HA1C ####[facility] ([id number])[address], [address] [place] [address] Glucose [Mass/Vol] 484 mg/dL Critically high 65-99 [facility] Comment on above: Performed By: #### C JOSÉ LUIS, , CBCA ####[facility] ([id number])[address] [place] [address] 60859#### HA1C ####[facility] ([id number])[address], [address], [place] [address] Potassium [Moles/Vol] 4.1 mmol/L Normal 3.5-5.0 [facility] Comment on above: Performed By: #### Shane ORDONEZ, , CBCA ####[facility] ([id number])[address] [place] [address] 82918#### HA1C ####[facility] ([id number])[address], [address], [place] [address] Protein [Mass/Vol] 6.6 g/dL Normal 6.0-8.0 [facility] Comment on above: Performed By: #### Shane ORDONEZ, , CBCA ####[facility] ([id number])[address] [place] [address] 56237#### HA1C ####[facility] ([id number])[address], [address] [place] [address] Sodium [Moles/Vol] 135 mmol/L Normal 134-146 [facility] Comment on above: Performed By: #### Shane ORDONEZ, , CBCA ####[facility] ([id number])[address] [place] [address] 43932#### HA1C ####[facility] ([id number])0 [facility], [address] [place] [address] 41853 Urea nitrogen [Mass/Vol] 28 mg/dL High 5-23 [facility] Comment on above: Performed By: #### C JOSÉ LUIS, 50686-2, CBCA ####[facility] ([id number])[address] [place] [address] 13161#### HA1C ####[facility] ([id number])0 [facility], [address] [place] [address] Glucose Glucometer (BldC) [M ass/Vol]on 07-22-2024 Glucose [Mass/Vol] 311 mg/dL High 65-99 [facility] Glucose [Mass/Vol] 339 mg/dL High 65-99 [facility] Glucose [Mass/Vol] 363 mg/dL High 65-99 [facility] Glucose [Mass/Vol] 395 mg/dL High 65-99 [facility] Glucose [Mass/Vol] 488 mg/dL Critically high 65-99 [facility] HGB A1C (GLYCO-HGB)on 2023 Glucose [Mass/Vol] 229 mg/dL Normal [facility] Comment on above: Performed By: #### C JOS ÉLUIS, 53015-1, CBCA ####[facility] ([id number])[address] [place] [address] 09343#### HA1C ####[facility] ([id number])0 [facility], [address] [place] [address] HbA1c (Bld) [Mass fraction] 9.6 % High 4.4-5.6 [facility] Comment on above: Result Comment: NOTE ADA Guidelines Result HgbA1c Normal : less than 5.7 % Prediabetes : 5.7 % to 6.4 % Diabetes : > 6.4 % Use with caution in patients with abnormal hemoglobin variants as the half-life of red blood cells and in vivo glycation rates are affected. Performed By: #### C JOSÉ LUIS, 40156-8, CBCA ####[facility] ([id number])[address] [place] [address] 69311#### HA1C ####[facility] ([id number])[address], [address] [place] [address] MAGNESIUMon 07-22-2024 Magnesium [Mass/Vol] 1.8 mg/dL Normal 1.8-2.6 [facility] Comment on above: Performed By: #### C JOSÉ LUIS, 94456-3, CBCA ####[facility] ([id number])[address] [place] [address] 90062#### HA1C ####[facility] ([id number])[address], [address], [place] [address] BASIC METABOLIC PANLon 07-21 Anion gap [Moles/Vol] 10 mmol/L Normal 5-15 [facility] Comment on above: Performed By: #### C RT #### [facility] ([id number]) [address], [address] [place] [address] Calcium [Mass/Vol] 9.2 mg/dL Normal 8.5-10.5 [facility] Comment on above: Performed By: #### C RT #### [facility] ([id number]) [address], [address] [place] [address] Chloride [Moles/Vol] 100 mmol/L Normal 98-109 [facility] Comment on above: Performed By: #### C RT #### [facility] ([id number]) [address], [address] [place] [address] CO2 [Moles/Vol] 29 mmol/L Normal 22-32 [facility] Comment on above: Performed By: #### C RT #### [facility] ([id number]) [address], [address] [place] [address] Creatinine [Mass/Vol] 0.77 mg/dL Normal 0.40-1.00 [facility] Comment on above: Result Comment: METH OD TRACEABLE TO IDMS STANDARD Performed By: #### C RT #### [facility] ([id number]) [address], [address] [place] [address] eGFR (CKD-EPI) NON-RACE DEPENDENT >90 Normal >59 [facility] Comment on above: Result Comment: Reported eGFR is based on the CKD-EPI 2020 equation that does not use a race coefficient. Performed By: #### C RT #### [facility] ([id number]) [address], [address] [place] [address] Glucose [Mass/Vol] 254 mg/dL High 65-99 [facility] Comment on above: Performed By: #### C RT #### [facility] ([id number]) [address], [address] [place] [address] Potassium [Moles/Vol] 4.2 mmol/L Normal 3.5-5.0 [facility] Comment on above: Performed By: #### C RT #### [facility] ([id number]) [address], [address] [place] [address] Sodium [Moles/Vol] 139 mmol/L Normal 134-146 [facility] Comment on above: Performed By: #### C RT #### [facility] ([id number]) [address], [address] [place] [address] Urea nitrogen [Mass/Vol] 23 mg/dL Normal 5-23 [facility] Comment on above: Performed By: #### C RT #### [facility] ([id number]) [address], [address] [place] [address] CBC AND AUTO DIFFon 1720 24 ABSOLUTE BASOPHIL 0.0 X10E9/L Normal 0.0-0.2 [facility] Comment on above: Performed By: #### C RT #### [facility] ([id number]) [address], [address] [place] [address] ABSOLUTE NEUTROPHIL 2.7 X10E9/L Normal 1.5-6.6 [facility] Comment on above: Performed By: #### C RT #### [facility] ([id number]) [address] [address] [place] [address] Basophils/100 WBC (Bld) 0.7 % Normal [facility] Comment on above: Performed By: #### C RT #### [facility] ([id number]) [address] [address] Eosinophils (Bld) [#/Vol] 0.1 10*3/uL Normal 0.0-0.4 [facility] Comment on above: Performed By: #### C RT #### [facility] ([id number]) [address] [address] [place] [address] Eosinophils/100 WBC (Bld) 1.4 % Normal [facility] Comment on above: Performed By: #### C RT #### [facility] ([id number]) [address] [address] [place] [address] Erythrocyte distribution width (RBC) [Ratio] 13.3 % Normal 11.5-15.0 [facility] Comment on above: Performed By: #### C RT #### [facility] ([id number]) [address] [address] [place] [address] Hematocrit (Bld) [Volume fraction] 41.2 % Normal 35-47 [facility] Comment on above: Performed By: #### C RT #### [facility] ([id number]) [address] [address] [place] [address] Hemoglobin (Bld) [Mass/Vol] 13.6 g/dL Normal 11.7-15.5 [facility] Comment on above: Performed By: #### C RT #### [facility] ([id number]) [address], [address] [place] [address] Lymphocytes (Bld) [#/Vol] 2.1 10*3/uL Normal 1.0-3.5 [facility] Comment on above: Performed By: #### C RT #### [facility] ([id number]) [address], [address] [place] [address] Lymphocytes/100 WBC (Bld) 40.9 % Normal [facility] Comment on above: Performed By: #### C RT #### [facility] ([id number]) [address], [address] [place] [address] MCH (RBC) [Entitic mass] 28.5 pg Normal 27-34 [facility] Comment on above: Performed By: #### C RT #### [facility] ([id number]) [address], [address] [place] [address] MCHC (RBC) [Mass/Vol] 33.0 g/dL Normal 32-36 [facility] Comment on above: Performed By: #### C RT #### [facility] ([id number]) [address], [address] [place] [address] MCV (RBC) [Entitic vol] 87 fL Normal 80-100 [facility] Comment on above: Performed By: #### C RT #### [facility] ([id number]) [address], [address] [place] [address] Monocytes (Bld) [#/Vol] 0.2 10*3/uL Normal 0-0.9 [facility] Comment on above: Performed By: #### C RT #### [facility] ([id number]) [address], [address] [place] [address] Monocytes/100 WBC (Bld) 4.6 % Normal [facility] Comment on above: Performed By: #### C RT #### [facility] ([id number]) [address], [address] [place] [address] Neutrophils/100 WBC (Bld) 52.4 % Normal [facility] Comment on above: Performed By: #### C RT #### [facility] ([id number]) [address], [address] [place] [address] Platelet mean volume (Bld) [Entitic vol] 7.0 fL Normal 7-12 [facility] Comment on above: Performed By: #### C RT #### [facility] ([id number]) [address] [address] [place] [address] Platelets (Bld) [#/Vol] 190 10*3/uL Normal 150-450 [facility] Comment on above: Performed By: #### C RT #### [facility] ([id number]) [address] [address] [place] [address] RBC COUNT 4.77 X10E12/L Normal 3.80-5.20 [facility] Comment on above: Performed By: #### C RT #### [facility] ([id number]) [address] [address] [place] [address] WBC (Bld) [#/Vol] 5.2 10*3/uL Normal 4.0-11.0 [facility] Comment on above: Performed By: #### C RT #### [facility] ([id number]) [address] [address] [place] [address] Fibrin D-dimer DDU (PPP) [Ma ss/Vol]on 07-21-2024 D DIMER 217 ng/mL DDU Normal <255 [facility] Comment on above: Result Comment: Results <255 ng/mL DDU: The presence of a VTE can safely be excluded with a negative D-Dimer result and Wells score. A negative result doesn't exclude the possibility of DIC. The test be repeated along with other diagnostic tests if the patient's symptoms persist or worsen. [email or web address] Performed By: #### C RT #### [facility] ([id number]) [address] [facility], [address] [place] [address] MAGNESIUMon 07-21-2024 Magnesium [Mass/Vol] 2.0 mg/dL Normal 1.8-2.6 [facility] Comment on above: Performed By: #### C RT #### [facility] ([id number]) [address] [facility], [address] [place] [address] Natriuretic peptide B [Mass/ Vol]on 07-21-2024 Natriuretic peptide B (Bld) [Mass/Vol] 20 pg/mL Normal <100.0 [facility] Comment on above: Performed By: #### C RT #### [facility] ([id number]) [address] [facility], [facility] [address] [place] [address] SARS/FLU A+B/RSV by NAAT/Mol ecularon 07-21-2024 SARS/FLU [...] operators who are performing tests using either [employer] or [employer] systems and is limited to laboratories that [...] repeat. Fact Sheet for Healthcare Providers: https://www.fda.go v/media/841092/chapo nload Fact Sheet for Patients: https://www.fda.go v/media/430026/chapo nload Normal [facility] Comment on above: Performed By: #### C OVFLR ####[facility] ([id number])[address] [place] [address] THYROID PROFILEon 07-21-2024 Free T4 [Mass/Vol] 1.11 ng/dL Normal 0.61-1.60 [facility] Comment on above: Performed By: #### C RT #### [facility] ([id number]) [address] [place] [address] TSH 2.45 uIU/mL Normal 0.49-4.67 [facility] Comment on above: Performed By: #### C RT #### [facility] ([id number]) [address] [place] [address], [address] [place] [address] Troponin I.cardiac High sens itivity method [Mass/Vol]on 07-21-2024 3 HOUR TROP I, HIGH SENSITIVITY 3 ng/L Normal <16 [facility] Comment on above: Performed By: #### 8 9579-7 ####[facility] ([id number])[address] [place] [address] 1 HOUR TROP I, HIGH SENSITIVITY 3 ng/L Normal <16 [facility] Comment on above: Performed By: #### 8 9579-7 ####[facility] ([id number])[address] [place] [address] TROPONIN I, HIGH SENSITIVITY 3 ng/L Normal <16 [facility] Comment on above: Performed By: #### C RT #### [facility] ([id number]) [address], [address] [place] [address] XR CHEST 1 VWon 07-21-2024 XR CHEST 1 VW XR CHEST 1 VW XR CHEST 1 VW IMPRESSION: Clinical Information: chest pain Comparison: 06/28/24. * No pulmonary edema or consolidation. * No effusions. * Stable heart size. * Mild elevation right hemidiaphragm. 99 Finalized by Shama Calvin MD on 07/21/2024 5:08 PM Normal [facility] MAGR Postoperative Recordon 07-16-2024 MAGR Postoperative Record MAGR Phase II Record Summary Primary Physician: Arianna Miller DO Finalized Date/Time: 07/16/24 07:39:56 Pt. Name: CARISSA SANTOS/Sex: 1980 FEMALE Med Rec #: [id number] Physician: Arianna Miller DO Financial #: [id number] Pt. Type: D Room/Bed: / Admit/Disch: 06/17/24 [...] Unfinalizing Freetext Reason for Unfinalizing 07/16/24 07:39 MHRSCOTT Correct Documentation Decreasing time by 1 minute in order for charges to drop. Normal [facility] BASIC METABOLIC PANLon 06-28 Anion gap [Moles/Vol] 10 mmol/L Normal 5-15 [facility] Comment on above: Performed By: #### 4 8066-5, CBCA, BMP, 32975-7 #### [facility] ([id number]) [address] [place] [address] Calcium [Mass/Vol] 9.1 mg/dL Normal 8.5-10.5 [facility] Comment on above: Performed By: #### 4 8066-5, CBCA, BMP, 74906-3 #### [facility] ([id number]) [address] [place] [address] Chloride [Moles/Vol] 103 mmol/L Normal 98-109 [facility] Comment on above: Performed By: #### 4 8066-5, CBCA, BMP, 47262-4 #### [facility] ([id number]) [address] [place] [address] [place] [address] CO2 [Moles/Vol] 26 mmol/L Normal 22-32 [facility] Comment on above: Performed By: #### 4 8066-5, CBCA, BMP, 75302-3 #### [facility] ([id number]) [address] [place] [address] 71182 Creatinine [Mass/Vol] 1.04 mg/dL High 0.40-1.00 [facility] Comment on above: Result Comment: METH OD TRACEABLE TO IDMS STANDARD Performed By: #### 4 8066-5, CBCA, DACIA, 88470-3 #### [facility] ([id number]) [address] [place] [address] 24726 GFR/1.73 sq M.predicted among non-blacks MDRD (S/P/Bld) [Vol rate/Area] 68 mL/min/{1.73_m2} Normal >59 [facility] Comment on above: Result Comment: Reported eGFR is based on the CKD-EPI 2020 equation that does not use a race coefficient. Performed By: #### 4 8066-5, CBCA, DACIA, 28065-2 #### [facility] ([id number]) [address] [place] [address] 24559 Glucose [Mass/Vol] 218 mg/dL High 65-99 [facility] Comment on above: Performed By: #### 4 8066-5, CBCA, BMP, 65981-0 #### [facility] ([id number]) [address] [place] [address] 01177 Potassium [Moles/Vol] 4.0 mmol/L Normal 3.5-5.0 [facility] Comment on above: Performed By: #### 4 8066-5, CBCA, BMP, 78292-9 #### [facility] ([id number]) [address] [place] [address] 94465 Sodium [Moles/Vol] 139 mmol/L Normal 134-146 [facility] Comment on above: Performed By: #### 4 8066-5, CBCA, BMP, 41331-7 #### [facility] ([id number]) [address] [place] [address] 16853 Urea nitrogen [Mass/Vol] 30 mg/dL High 5-23 [facility] Comment on above: Performed By: #### 4 8066-5, CBCA, BMP, 93211-7 #### [facility] ([id number]) [address] [place] [address] 56252 CBC AND AUTO DIFFon 10-25-20 24 ABSOLUTE BASOPHIL 0.0 X10E9/L Normal 0.0-0.2 [facility] Comment on above: Performed By: #### 4 8066-5, CBCA, BMP, 45021-0 #### [facility] ([id number]) [address] [place] [address] 81421 ABSOLUTE NEUTROPHIL 3.7 X10E9/L Normal 1.5-6.6 [facility] Comment on above: Performed By: #### 4 8066-5, CBCA, BMP, 75593-4 #### [facility] ([id number]) [address] [place] [address] 68175 Basophils/100 WBC (Bld) 0.6 % Normal [facility] Comment on above: Performed By: #### 4 8066-5, CBCA, BMP, 26204-7 #### [facility] ([id number]) [address] [place] [address] 62420 Eosinophils (Bld) [#/Vol] 0.1 10*3/uL Normal 0.0-0.4 [facility] Comment on above: Performed By: #### 4 8066-5, CBCA, BMP, 67968-7 #### [facility] ([id number]) [address] [place] [address] 53028 Eosinophils/100 WBC (Bld) 1.6 % Normal [facility] Comment on above: Performed By: #### 4 8066-5, CBCA, BMP, 62349-7 #### [facility] ([id number]) [address] [place] [address] 60270 Erythrocyte distribution width (RBC) [Ratio] 14.0 % Normal 11.5-15.0 [facility] Comment on above: Performed By: #### 4 8066-5, CBCA, BMP, 46738-5 #### [facility] ([id number]) [address] [place] [address] 34449 Hematocrit (Bld) [Volume fraction] 37.6 % Normal 35-47 [facility] Comment on above: Performed By: #### 4 8066-5, CBCA, BMP, 90212-4 #### [facility] ([id number]) [address] [place] [address] 09886 Hemoglobin (Bld) [Mass/Vol] 12.4 g/dL Normal 11.7-15.5 [facility] Comment on above: Performed By: #### 4 8066-5, CBCA, BMP, 54848-5 #### [facility] ([id number]) [address] [place] [address] 48033 Lymphocytes (Bld) [#/Vol] 2.6 10*3/uL Normal 1.0-3.5 [facility] Comment on above: Performed By: #### 4 8066-5, CBCA, BMP, 59933-1 #### [facility] ([id number]) [address] [place] [address] 75994 Lymphocytes/100 WBC (Bld) 37.6 % Normal [facility] Comment on above: Performed By: #### 4 8066-5, CBCA, BMP, 02800-7 #### [facility] ([id number]) [address] [place] [address] 80927 MCH (RBC) [Entitic mass] 28.6 pg Normal 27-34 [facility] Comment on above: Performed By: #### 4 8066-5, CBCA, BMP, 98557-6 #### [facility] ([id number]) [address] [place] [address] 20283 MCHC (RBC) [Mass/Vol] 32.9 g/dL Normal 32-36 [facility] Comment on above: Performed By: #### 4 8066-5, CBCA, BMP, 92742-8 #### [facility] ([id number]) [address] [place] [address] 26568 MCV (RBC) [Entitic vol] 87 fL Normal 80-100 [facility] Comment on above: Performed By: #### 4 8066-5, CBCA, BMP, 69701-4 #### [facility] ([id number]) [address] [place] [address] 78075 Monocytes (Bld) [#/Vol] 0.4 10*3/uL Normal 0-0.9 [facility] Comment on above: Performed By: #### 4 8066-5, CBCA, BMP, 09517-4 #### [facility] ([id number]) [address] [place] [address] 28999 Monocytes/100 WBC (Bld) 5.6 % Normal [facility] Comment on above: Performed By: #### 4 8066-5, CBCA, BMP, 97901-1 #### [facility] ([id number]) [address] [place] [address] 07478 Neutrophils/100 WBC (Bld) 54.6 % Normal [facility] Comment on above: Performed By: #### 4 8066-5, CBCA, BMP, 86225-3 #### [facility] ([id number]) [address] [place] [address] 23538 Platelet mean volume (Bld) [Entitic vol] 6.9 fL Low 7-12 [facility] Comment on above: Performed By: #### 4 8066-5, CBCA, BMP, 72904-1 #### [facility] ([id number]) [address] [place] [address] 18428 Platelets (Bld) [#/Vol] 224 10*3/uL Normal 150-450 [facility] Comment on above: Performed By: #### 4 8066-5, CBCA, BMP, 89116-9 #### [facility] ([id number]) [address] [place] [address] 85038 RBC COUNT 4.32 X10E12/L Normal 3.80-5.20 [facility] Comment on above: Performed By: #### 4 8066-5, CBCA, BMP, 12904-9 #### [facility] ([id number]) [address] [place] [address] 09779 WBC (Bld) [#/Vol] 6.8 10*3/uL Normal 4.0-11.0 [facility] Comment on above: Performed By: #### 4 8066-5, CBCA, BMP, 95537-7 #### [facility] ([id number]) [address] [place] [address] 88673 Fibrin D-dimer DDU (PPP) [Ma ss/Vol]on 06-28-2024 D DIMER 220 ng/mL DDU Normal <255 [facility] Comment on above: Result Comment: Results <255 ng/mL DDU: The presence of a VTE can safely be excluded with a negative D-Dimer result and Wells score. A negative result doesn't exclude the possibility of DIC. The test be repeated along with other diagnostic tests if the patient's symptoms persist or worsen. [email or web address]&uh =acaea Performed By: #### 4 8066-5, CBCA, [facility], 93879-0 #### [facility] ([id number]) [address] [place] [address], [place] [address] Troponin I.cardiac High sens itivity method [Mass/Vol]on 06-28-2024 3 HOUR TROP I, HIGH SENSITIVITY 39 ng/L High <16 [facility] Comment on above: Result Comment: Elevations of hs-Troponin may be due to causes other than myocardial ischemia. Recommend serial hs-Troponin testing be performed. For the initial evaluation and management of chest pain patients, refer to the algorithms linked below. Emergency Patient: [email or web address]&uh =acaea Inpatient: [email or web address]/[email or web address]?[email or web address]&[email or web address]&uh =acaea Performed By: #### C RT #### [facility] ([id number]) [address] [place] [address], [address] [place] [address] 1 HOUR TROP I, HIGH SENSITIVITY 35 ng/L High <16 [facility] Comment on above: Result Comment: Elevations of hs-Troponin may be due to causes other than myocardial ischemia. Recommend serial hs-Troponin testing be performed. For the initial evaluation and management of chest pain patients, refer to the algorithms linked below. Emergency Patient: [email or web address]/[email or web address]&uh =acaea Inpatient: [email or web address]/[email or web address]?[email or web address]&a=12794&uh =acaea Performed By: #### C RT #### [facility] ([id number]) [address], [address] [place] [address] TROPONIN I, HIGH SENSITIVITY 32 ng/L High <16 [facility] Comment on above: Result Comment: Elevations of hs-Troponin may be due to causes other than myocardial ischemia. Recommend serial hs-Troponin testing be performed. For the initial evaluation and management of chest pain patients, refer to the algorithms linked below. Emergency Patient: [email or web address]com/dv/dl.[email or web address]?[email or web address]&[email or web address]&uh =acaea Inpatient: [email or web address]/dv/[email or web address]?[email or web address]&[email or web address]&uh =acaea Performed By: #### 4 8066-5, CBCA, BMP, 62138-0 #### [facility] ([id number]) [address] [place] [address], [place] [address] XR CHEST 1 VWon 06-28-2024 XR CHEST [...] Richardson MD on 06/28/2024 8:13 PM Normal [facility] Coding Summaryon 06-20-2024 Coding Summary HTMLBase 64 NmhwznlyRHz1yWt+PG hlYWQ+XV6JNPFbL91h lGKdhM5oO8VVOZrTUj wgQVBQTElOSyIgbmFt GB8tpPAnGHNo IC8+YL8wUMHnVyzfnG Esf3E9dXZ2T81rdh3o OGyuhHX6LIFsBjUdfs pwd2gvwFj4ROroFmmt OyBt KIHntE26KOM2gZ82Al 46bILnsEKzx6feyHm7 NlKvSYIyCPZ1yIzfRA wmo9XhYJQtZ84viMMt c2U6 IGNvbGxhcHNlOyBlbX T7pT3jARumcmpir6vg hcmqUva6qz34kBXiy3 I3oSC9M6ZxxqQ1RQDu bGQg BvviuCFGpC6slwlje9 xvcjogIzAwMDAwMDt0 HQb0XGNazWkrSmFgRK 56XYZ2YVXenlPvW7Ri LWFs xLapRwZ5q8W1Vu3TQ5 YFTtvyU6LCYSBNVHtt dGQ+WM33pm27R3NbMv biAtl4PMMvTNA5uFZ5 aD0n QFEkEQmzj4B2mES6T6 KtnjNzmp0lq7arQKId UEeqX09dpGZuq9M8NA AnjRS0RDZdhRmaToHn aG93 Oyc+HUWmiXshq1XuWv ixw2mzs8fubQl0Ltyv ZKExveFwaEdxLBX3d0 GdZx2cJCOrzIR6zBD1 aD0i EyQfCrS0MTtjV657Gj UtcECfKgcbZ56mD8Rl dXA+PFScBqi4PRColH hmNF5dF9DqZPYpxhpx bGVm nTnyWI2zBIJktmexVP GhqX5pEQJsK2y4FyKv TsN0JPaaT0PlRSQxta vbZj69wS6wIpCmMnQ7 MGlu Q8TonfY1VTNqhGWlQD ilIUJ9P45do1E9TJHy VXPsDHX3sTU9lU7bvV lnbjogbGVmdDsgdmVy dGlj UDtoLCfaH464HMJbrE snPkNvZGluZyBEYXRl OiAgMTAvMTcvMjAyND wvdGQ+ECIjHNT5aXgz PSAn uWDkBYroQd0xsRhomM ntYL2dOIZrjdolVRTx xJ1cNDAdiKLjhNirSR 0hQSSwulyzt044QqMc MHB0 QKYmwSPqE6LxbY7jWe GbQGMqMSLjU3XraOUy EUkuT587PYraBtH7JZ HxhgWzC4ItIGHmxPau OiB0 b0H5Hx1Vu9ZucqwfU4 RhdHVzOiAgRmluYWw8 P5LwHrezyMO+PC90YW KcJW98IZj8DXF4cXcz PSdi PNNiY4FvzZ5pUsDyON RkZGRkOyc+PHRhYmxl IHdpZHRoPScxMDAlJy XkoYhcOI5gIf4wVVFy LWNv mPrqsQQyQiGvl3phBB FbQXnpYZ8cvIgeQ8Oc eDM9OHThe3n1Hp23X6 8qZ7VoiDK+PGNvbCB3 aWR0 fH9dGfOrDpM6WIlfO2 79ExZhiMKkHmtwl0ts g9jcyPq2IwA3DSLaut YquHddPWN6l4JjCh01 Y29s IHdpZHRoPSIxNSUiIH OfyClbyr0swT3eTj3+ RIXjrTF3mLY8jD8cWu JbNlQ5NPhlM199PoQy cCIv Wnuss7xlq8irlEf5Vt IwJSIgdmFsaWduPSJ0 e6WlGo93H8UvmXuot5 PtIyd0jc02sJMzg7Z6 bGU9 F4RfCDEnmqzciXQxfU afQA0hWCCaawhsGTOp zO1sPQOnK8c4YqYnLq B3XLaqQ6TztrL7JLPl bGQg IHJhxBNSnO2nfgmxz5 xvcjogIzAwMDAwMDt0 ZMj7XOKnvZakSqIqWT M8GwY7BWV4rMVheE0m bGln adsprQ0uLqn+UGF0aW VxiTSOGW5lVatruEO+ CIPzQIL9tHpzGGhqXL LnlZ9rXRWjP6p3XiRc LjA1 TDeqW7TlelK5XPOacI CzOILimXVZcY2edtjk s3pxnsgpZxQmJGJvPL z3SEp4YWLnpXisBmCt ZWZ0 BvL5CJT0lHVlwF6cxW zpvvsenP8uAed+Qmly kAwiULM0PPm5F8VdYh v7OWWpfHqqGB1aiIWz ZGlu Uc4awKvcaJhyMG2sPG Zqejyyb942ReGni4pr OATorLQwJMfnXUW8M6 0bt0P5SXJpEMIpYRX2 dGV4 zQ5epVgmjcaokHRdkL sgdmVydGljYWwtYWxp N595YJKqvXtqBuKfCM q9F8CnPzi3ANGufJlh ZT0n iKGzXLfoNb3tnFqbeH fhJK6cDHAucnqff920 MmQvv2kzDPDijHTyMK grRZD9Y39kl5B6EOCp MDAw FLX4zYM1wS9tsBeenu ogbGVmdDsgdmVydGlj RXtuIPmfO487KFDtfL ysXiMepMn1K1XvNug5 ZCBz vWpsCR6fiJGhYIqqMt 7bjNredMsiXK9fDOWk wcgjr351PtPiz2khCQ ElgKGrGMhtIST0R29a b3I6 HSQaILKtSSY3kSB1zV 1hbGlnbjogbGVmdDsg dmVydGljYWwtYWxpZ2 46IHRvcDsnPlBhdGll bnQg TDkoFKa3T6XeInoqgT I+YL63KECwPB13qDHe mFKaz2vbpDh0SlHmZF OjDPC9hUxsXBqrs9Qc ZXIt T94tfUQgv9T3XUIlwJ egxWMaEoJqzEX8iB8k RFlbilafq6ohbmpbDw rgk6egak90gJ52B16x IHdp ZHRoPSIzMCUiIHZhbG duwm2cqW1yZi3+PGNv kDL4yHU4tO8pZTUgGh J1CFwhH095EiXawMGm Pjxj o8ike8vmmKd7LnO7LD UmpqExkNqmWVM8n9Tj Aj97F54xSBriHKCxBZ ZyCMGiVIOcdFybnd4o dG9w Ii8+MJYcoHH6rWT9kP 7gHfZuItG1CDoaH111 WcLbdDZjDdhuS59aU2 JvdXA+CVLsVoe0JQLv dHls HO4vjPZcBYtsNz6fHJ K9XwIaUcLcOHjsA5Vm TWIddhkptixhwJF9QX WcQYQkcY80Jx2hkCxj MTBw lGNPmX4vpytnj1oxaq zcBaRsAWLfPEv9TEs4 JKQcxYqyPvGlLOY3Um M6QHZ1fCUreP1tfTtx bjog uH0iC9ItFIFptqfqOi 30yH7qNfSaGwB5QRhs Oyc+WFGNQR9UIUSEQV HUFBrtCx4BPZllpHO+ PHRk PZZ0hRxvIOjjMRVstO 7rOWDdB1d4GlCkIbI6 WCotV0UhMNFntiflWe 82fX1kIdEjVkC3TVxv O2Zv ryT5DVHegFDeDZsxUD G8V71ht4V9SOTyGYGa MAG2iXB3tX4udUjkhv ogbGVmdDsgdmVydGlj YWwt YHsdO404ETEphVcbMg HePuU9AoF2Lic2N2Pz Yto6RVMmvEkfRI4guC MfEJpeVp4uzScfgEhe MC4w FNTjmywbUMLmzH0wIM WnjHTtgFdjEM3sMOHr ngiii353RlFhKDP0KJ TerKDgY6VhzK1oIcOo MDAw NQRvF7ScwCUmZPlbO2 94PJztFuO0VCQmmeDo S4CjDXTeqZbqDyL7z7 L9Ja92LLUQHZWvwofs dGQ+ CRPvJCY6rTcyGJchRI MqoG6zKVUdH1u7ZsDm BcV7SLdaT8PgTVCaqj urRu36yM3mQrMrNsL2 MGlu M7CamgF8RUTqrJPsMK hmTOY1S66hz8K3EDXc SZKaBKI4sVC4dO0ozJ lnbjogbGVmdDsgdmVy dGlj LYwhCVwxN322PNAfmK snPkZFTUFMRTwvdGQ+ QSVgUSH6wZmpDRzvEL IcaA3aTAVbD7u8DhKt LjA1 WCmpL5RrUJUxxcvvPp 23bL2rLaAeHkA8JKgk L3PjseO1VHEhgUEtDH tyUGY5G49oc4S3IXSe MDAw WWJ2cFV3bH6jwSigov ogbGVmdDsgdmVydGlj MXdtPWjfB939TRTtjX snPkRheSBTdXJnZXJ5 PC90 FG01R4MvOqtdeITmrZ U+PHRhYmxlIHdpZHRo PScxMDAlJyBzdHlsZT 1iZk4fEXJkAQWlrBka cHNl ZmStp6tlIMVkZSuvPH 4kuEhpP5RsvGL7FEMe x6q5Ew21N40yP7FakU A+NPMnaTP2qJI3kU7f MzAl YaD1PBfwK306SkPrpV GyJbork1mwq1bcxUm2 IjMwJSIgdmFsaWduPS R8l4XlZd23T19sJJdn ZHRo PSIyMCUiIHZhbGlnbj 9lwD6bUn2+PGNvbCB3 fPC3bK8gJfLkOnW6OO itJ519KnPmqSJvNgmy Y29s M5IbkJO+IYMzMox6FF WypQtwXA8wuBNcQNnz Tf7sAVA1DbWcLrHcEW saC3PtXKCtheueedcd aHQ6 PDJwWQKwuW52Yd6rbH htSb1lFGLtHCF2VRAa jBXzB8JsmU9fMwTfPE YhJSJaZ9LfiWNyMIiy Z246 OUgeQoW4MCJpkcShR3 SlQCMugKlbEcN8x7T3 Fx5DzNosaOOmCZ5fYt MyIVc3K0DcVeo4PSNd dHls UD5ewSLlPDjqWo5inU mphTnqCY0jZJRlsmxt y790JpLgt4amYTMovL NwKFvsDHZ9F39zq5P1 ICMw VOHfFSW0vIL4lQ8ovB lnbjogbGVmdDsgdmVy fCilDRnzVZtzS382AD NicBtgHdTAZti6D0Pb Pjx0 NLXhkMhpFX9iuSYgZT pwFm3fmPnwxZksWZ3g QZWcjqkgd202QpBhu5 xkIDEwcHQgVGltZXM7 Y29s k0P2MAAzGBNwTPO3uE R9cG0pdFdvndvgxWOs dDsgdmVydGljYWwtYW szW182YJTtmGanJz5A Tjo8 J1EhUab1EXFksQzgIP 4uuTYeRKdePd0hoTkq vRqqUG3fMNUkunpfi7 08LsPxf4quOUUlrPZz VGlt XJP8I82od9Q4DGOgKX JiKLL6eLX0vA9wjArk bjogbGVmdDsgdmVydG juAIfrQEkiN886UTXj cDsn PlBheWVyOjwvdGQ+PC 34su86Q1EqRdyrSel4 DMXyCMO2cZI1bP6yRD ExUJqeg6P7yUP3Y0Me cmRl ci1 (more content not included)... [facility] Record [facility]Op Record Summary Primary Physician: Arianna Miller DO Finalized Date/Time: 06/20/24 08:21:54 Pt. Name: CARISSA SANTOS MALLIKA Cano/Sex: 1980 FEMALE Med Rec #: [id number] Physician: Arianna Miller DO Financial #: [id number] Pt. 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 [facility] Consent Formson 06-18-2024 Consent Forms [id number] Dis[facility] Instructions [id number] 06-18-2024 Outside Records [id number] 06-17-2024 Anesthesia Note Patient: CARISSA SANTOS Age: 43 years Sex: FEMALE : 1980 Associated Diagnoses: None Author: Olivier Lares MD Postoperative Information Post Operative Note: Operative Day. Anesthetic utilized: Monitored anesthesia care. Health Status Allergies: Allergic Reactions (All) Moderate Bactrim- Rash. Canceled/Inactive Reactions (All) No known allergies Problem list: All Problems Anxiety / SNOMED CT 06614906 / Confirmed Chronic hypoxic respiratory failure / SNOMED CT 6142950296 / Confirmed Depression / SNOMED CT 63665301 / Confirmed Developmental delay / SNOMED CT 517982375 / Confirmed Diabetes / SNOMED CT 932161649 / Confirmed GERD (gastroesophageal reflux disease) / SNOMED CT 214947987 / Confirmed High blood cholesterol / SNOMED CT 89887006 / Confirmed HTN (hypertension) / SNOMED CT 8012410790 / Confirmed Irritable bowel syndrome (IBS) / SNOMED CT 01308011 / Confirmed Pulmonary nodule / SNOMED CT 9901426398 / Confirmed Obesity / SNOMED CT 2247762954 / Confirmed Physical Examination Vital Signs (last 24 hrs) Last Charted Temp Temporal L 36 DegC (JUN 17 08:40) Heart Rate Monitored 79 bpm (JUN 17 10:40) Resp Rate 1 br/min (JUN 17 10:45) SBP 96 mmHg (JUN 17 10:39) DBP 57 mmHg (JUN 17:39) Review / Management Condition: Stable. Assessment Anesthetic outcome No anesthetic complications noted. Adequate pain relief. awake, answers questions, no pain, VSS, adequate hydration, Glucose=69. No Complaint of nausea and vomiting. Plan Transfer/ Discharge: Patient can be discharged from PACU when criteria met. Condition good. [Electronically Signed on: 06/17/2024 10:48 EDT] ____ Olivier Lares MD [Verified on: 06/17/2024 10:48 EDT] ____ Olivier Lares MD [facility] Anesthesia Note Patient: CARISSA SANTOS Age: 43 [...] list: All Problems Anxiety / SNOMED CT 46416849 / Confirmed Chronic hypoxic respiratory failure / SNOMED CT 3678790829 / Confirmed Depression / SNOMED CT 97016102 / Confirmed Developmental delay / SNOMED CT 990446389 / Confirmed Diabetes / SNOMED CT 301566657 / Confirmed GERD (gastroesophageal reflux disease) / SNOMED CT 327389250 / Confirmed High blood cholesterol / SNOMED CT 78681580 / Confirmed HTN (hypertension) / SNOMED CT 1510993489 / Confirmed Irritable bowel syndrome (IBS) / SNOMED CT 14103995 / Confirmed Pulmonary nodule / SNOMED CT 5922627083 / Confirmed Obesity / SNOMED CT 7838485007 / Confirmed Histories Family History: Heart attack Mother COPD (chronic obstructive pulmonary disease) Mother Procedure history: Carpal tunnel ([id number]) on 09/25/2023 at 43 Years. Comments: 09/25/2023 8:27 Jennyfer Benoit RN left TL - Tubal ligation (129975366) on 03/31/2023 at 42 Years. Genital warts (360515999). Cholecystectomy (73655178). Decompression of ulnar nerve (625455658). Comments: 04/16/2024 10:03 MARZENA Shrestha RN, Kevin [...] Oriented. Review / Management Laboratory Results Plan [place] [employer] (ASA) physical status classification: Class III. Anesthetic Preoperative Plan Anesthesia: Monitored anesthesia care. Anesthetic plan, risks, benefits, and alternatives discussed with the patient and/or family. Patient verbalized understanding. Informed consent was given. Consent was signed by the patient. [Electronically Signed on: 06/17/2024 10:14 EDT] ____ Olivier Lares MD [Verified on: 10 (more content not included)... Normal [facility] Inpatient Patient Summaryon 06-17-2024 [place] [address] Patient Discharge Instructions Name: CARISSA SANTOS : 1980 Patient Address: [address] [place] [address] Primary Care Provider: Name: DIAZ DALTON After you are discharged if you find you have any questions, please, call [phone] ext [phone] to speak to a nurse. Discharge Diagnosis: Carpal tunnel syndrome, right Prescription Information: If you have been given a prescription for narcotics, seek immediate medical attention if you have any difficulty breathing or any sudden status changes such as confusion and sleepiness. If you or anyone you know is experiencing suicidal thoughts, mental health, alcohol and/or drug addiction problems; contact the [facility] 27/03 Crisis Hotline -Text 4HOPE to 681178. If you received any narcotics, sedation, or [...] business decisions or sign any legal documents [facility] would like to thank you for allowing us to assist you with your healthcare needs. The following includes patient education materials and information regarding your injury/illness. CARISSA SANTOS has been given the following list of follow-up instructions, prescriptions, and patient education materials: Follow-up Instructions With: Address: When: Barry Snowden [address] [place] [address] [facility] (1) 06/24/2024 10:15 AM Medications During the [...] every day. Durable Medical Equipment for Prescription ([email or web address] CRYSTAL SENSOR 14D) APPLY 1 SENSOR TO [...] mg oral (more content not included)... Normal [facility] Preoperative Recordon 1 MAGR Preoperative Record MAGR Pre-Op Record Summary Primary Physician: Arianna Miller DO Finalized Date/Time: 06/17/24 13:04:23 Pt. Name: CARISSA SANTOS MALLIKA Bowen./Sex: 1980 FEMALE Med Rec #: [id number] Physician: Arianna Miller DO Financial #: [id number] Pt. Type: D Room/Bed: / Admit/Disch: 06/17/24 [...] By: Jennyfer Gresham RN 06/17/24 13:04 Normal [facility] POCT Glucose Levelon 024 Glucose [Mass/Vol] 43 mg/dL Critically abnormal 74-118 [facility] Comment on above: Result Comment: OPR_ ID=[email or web address],TGC FLAG = False,Meter:[id number] Roving Marker:2004 Domenica Dangelo Performed By: #### 4 [id number] ####[facility] (DEFAULT)[address] [place] [address] Patient Handouton 06-17-[address] MILLER'S POST OPERATIVE CARPAL TUNNEL INSTRUCTIONS: SURGEON'S WRITTEN INSTRUCTIONS: 1. Keep your hand elevated above your elbow for the first 24 hours after surgery. 2. Wiggle your fingers frequently while awake. 3. DO NOT lift heavy objects or slip cover estimator forcefully with your hand. 4. Change your [...] or concerns, please call the office at [phone]. 7. Follow up as scheduled. [facility] Progress Note - Nurseon 06-04 Progress Note - Nurse Pre-op call made- pt given arrival time of 0800 on 06-17-2024. 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 [Electronically Signed on: 05/31/2024 11:43 EDT] ____ Kalyani Ortiz RN [Verified on: 05/31/2024 11:43 EDT] ____ Kalyani Ortiz RN Normal [facility] HGB A1C (GLYCO-HGB)on 2023 Glucose [Mass/Vol] 324 mg/dL Normal [facility] Comment on above: Performed By: #### H A1C #### [facility] ([id number]) [address] [place] [address], [address] [place] [address] HbA1c (Bld) [Mass fraction] 12.9 % High 4.4-5.6 [facility] Comment on above: Result Comment: NOTE ADA Guidelines Result HgbA1c Normal : less than 5.7 % Prediabetes : 5.7 % to 6.4 % Diabetes : > 6.4 % Use with caution in patients with abnormal hemoglobin variants as the half-life of red blood cells and in vivo glycation rates are affected. Performed By: #### H A1C #### [facility] ([id number]) [facility], [address] [place] [address] XR KNEE RT 3 VWSon XR KNEE RT 3 VWS XR KNEE RT 3 VWS CLINICAL INFORMATION: pain, fall TECHNIQUE: XR KNEE RT 3 VWS 3 views right knee were obtained. There is no acute osseous abnormality. No fractures seen. No malalignment. IMPRESSION: No acute findings. 46 Finalized by Dustin Hernandez MD on 05/16/2024 10:29 AM Normal [facility] Coding Summaryon 04-30-2024 Coding Summary HTMLBase 64 WfksgirhYDp9rWf+PG hlYWQ+SZ0OYTFvD81k qKZmoL5vE2SKELyXDo wgQVBQTElOSyIgbmFt GR3leLAxPXXt IC8+ZJ5xYUBfUslitU Cxz5D8pYL0K46rss1y RRoenSA6FUTdChNwui afy1ltvHj9RNvuCirf OyBt ARDvkA92CEN5nY51Xl 58tAOatTSpa8upiKm2 JeEkTAQaBTF4qOowVS mhi2EmXXTjB59afEOl c2U6 IGNvbGxhcHNlOyBlbX U9eP2rLLrypeoxf5ml ehlbOpz0np41hQBjs5 C0wCS7T2DohxM9SRPm bGQg YprheISUqE5slvebb5 xvcjogIzAwMDAwMDt0 XRg8RROxjFbtZrRtYU 14HSS7XYQwnuCwW1Vx LWFs bIcaZaT7v9I6Wt2FA1 KOGlcbJ1UFHRCHWMig dGQ+ZG81sl33V3UkSb dvOjw9KKXlDIH3sIP8 aD0n VPXxIUqim0I3dRN3V8 NfybEkqo6yx6rxNOXl DHggO92mdALbx6F5KL FzzBN2AQDeqDmhZlKo aG93 Oyc+RFJysPrmx1FhHo wsd9ode6wfpVd5Ouen AFPxhcKokRwlQOK5d5 WcZy3zYZTdfFT8lPD9 aD0i RpTfOfW8EWrcD715Zk PpkJCzXjcoO50pA5Qr dXA+KTDrLnr0NKTtmE alET6wE0LaTSQgpclu bGVm lCvmMM4oOUDzirqmRJ JcnM8cZRShJ2e1ZrHa YuQ5RWqaI4TaCNOoxs dfVl53iQ2jTkDlVuF2 MGlu S2HiusD2TSNdaCJaCR ueUBT8V78ww1E6JHQt RZJsNPU8fTO9eA7mgM lnbjogbGVmdDsgdmVy dGlj RTujWHgpX626NKTcyR snPkNvZGluZyBEYXRl OiAgMDgvMjcvMjAyND wvdGQ+GGZdUWK1kVky PSAn wZVoBHgbIi6cqRcxvS cnNT0fETOfzixvIPSu sW2cURQomADefMilAH 3eAXMhcsovg889KiUg MHB0 IAHtbTVpG7IhpP3tGg YyAZXlTIHxA0UxaDAv PUvyI347DUluSdU0ET EvdhRfU4AhOLElaPnf OiB0 q2Y6Lu2Vt2ZuqqenN9 RhdHVzOiAgRmluYWw8 Z4QcXaittQE+PC90YW PlPE75NYh7ZMJ2eUdh PSdi WOHmZ8QdfV8sViBqAD RkZGRkOyc+PHRhYmxl IHdpZHRoPScxMDAlJy SqwZiaMW9sUg6iPDXe LWNv rIhpzNLlVkHph6seBT GvJByuDR0rkSeyC1Ca iGC1ZURkn2h2Wv97M8 9nA3ShxNB+PGNvbCB3 aWR0 kK7qGgHtIbN3CDxwZ5 40EfKmfOFnBdwdv3yz x6lqdXf0EsZ8IXFwpi KgkPofKVA0r4LaQw36 Y29s IHdpZHRoPSIxNSUiIH FlnWliec0uqC0cAb8+ YFPaqZD6yDK4lT5xUm GoLeA5NFzlC759NfYx cCIv Xifla6xoo7gxwMz2Gw IwJSIgdmFsaWduPSJ0 i0RnDc50K5PknTevg9 HvOjr5yt18aLRms9P5 bGU9 N7ViPEKeuazaqCMqtV uxRC5fNTXqmvhvRNTr qP4rXKOhH2q4DaCrZq S5VMajD7VnooC3QQQy bGQg YRPtyNZDyG1lpqhrb1 xvcjogIzAwMDAwMDt0 JSp1FPBhtVzsFvGmBM P5WmZ6IMC2wWMoxI3y bGln cqvifJ0zNym+UGF0aW RnmEOGGX3sDmyxuIK+ XRDpURE9uLwjBDrnKM SgiP1gFJMcZ3q2LcMt LjA1 KFmtT8SxgeX8HNTxyW JcJQLefVBDgF9jhlmh q8stigaeTzOkHLOiTM t7DNd5NTOsaAskCiAc ZWZ0 GhL7KGZ7pTBjyW7ieH txzrrcwG3sJam+Qmly oPyyCCW0KCs3L5OoSh z1KVNekTgnEV9hxQEv ZGlu Xy3muHgvhKugBB7nIW Yibnyhs721YfLcw8px JQGnoSKwKMjfHYN2U9 8bw2U0JYHrOHSwSCZ7 dGV4 pB3qeEvemvddbAEbmU sgdmVydGljYWwtYWxp M127ZNOluWlcVnVdCX s5Z3JmXnb5MJFsmFeg ZT0n qKJfHMtzJm2vuTismS jjXB7uHZEgtlelh170 CbXaf6rwTYFucPZfFH tkZFC9N53nn6Y2NAFs MDAw GDD9fUJ5aB1doFkqpw ogbGVmdDsgdmVydGlj GDsnRHyoL898KMBqoE dtMfOypSj4Z3PaAow4 ZCBz pQesZZ6cgYMuKEelOr 0znGmljWrkCO0rNNBo gztdv200LsOat5cwNF AddIYhFMnpZYS2V40j b3I6 DZVdPSRrSPN2kGH5mX 1hbGlnbjogbGVmdDsg dmVydGljYWwtYWxpZ2 46IHRvcDsnPlBhdGll bnQg SYklZWj1N3QhDrlsjZ I+FO83NIRcXT59uFYf hTWny6rokMh4SgRcBH NdJUQ7aIbxMHkza9Bn ZXIt C10ubQKtv8B4BFCinV rkmWNdHgZueNN5oZ1o KRbsukaub6xzzyksOv vye8aocw61eI34K91b IHdp ZHRoPSIzMCUiIHZhbG wdsg9vkE0hLd2+PGNv uQH8jPH6xO7eESRbZx P1NCbdG623MrVlpWEb Pjxj i2vpj3tvfRu0PxN3VG UkdsHwkZgeMYD0f9Su Ep56Y15uUZzrGBMvLL YkMLUvKRYmwBkvao2d dG9w Ii8+ZKIdvOZ4jLM5kP 9xUeZjYaC2LNqsC005 JjPisDArIwarO66lP7 JvdXA+NMSoZbs7BNTq dHls VZ7yyLYuWXheXr0yAN B2MzIpYhRvHTczL7Wj ACPqhlynbxfbxUD5KA OrQBNpaC62Mp1tjXmj MTBw rWWVcF9efgrjx1apzg tjQdKwOVXcMKs2PSi6 KACflRbhPbJeAZH0Cp N0SGU3uXYtiJ9znVho bjog gM7iW9DiIWBlrqsxOb 20gO0kDkMpJwS3SCqe Oyc+XJZCNB5QUHRPEN UETVraNq8MLWedrUZ+ PHRk SLU0kBprUHkpFDQvjZ 6aHGDuN3i2WbCcZzI8 SSzkX3AjIAKflikcDo 73kZ3nCdUnQkZ4WFuo O2Zv uoU1ADYsnMQjCBkwTC A5V32ff1V9JAIwWIRw OAQ5aEL3lG6srItkxc ogbGVmdDsgdmVydGlj YWwt MAscE198ILNntTccOz FxLkA8HmT5Ory8M1Bn Vua9YZHpaJwlOL7fiJ XqQPwfHm3yxBscvZcd MC4w USBbbojqVLRrfG8rIP VfwOXbuUyaDI4eRJZy dblss802QmUrJNW2RH ZueFLfB5MtzF2jKbEx MDAw ZURpW0QuuHTkHEvuD4 63XZjsGrR3JJNktmJs X0TpNSJfnWohSiZ0j5 R0Sd07ONWREQThrbax dGQ+ DTWaKTT6mHiuMZfvLY GtbD1qBRJwI8w8XqEf FwK6JIybQ8MqOZRwzb tsIl21kW3gDnAuChL4 MGlu Z5MwymQ1JALgpWVdJY foWRC7S42px7S0LVTn VDXsUCW8yYI0uI7fyR lnbjogbGVmdDsgdmVy dGlj VXrcGRzwH655YLEhtO snPkZFTUFMRTwvdGQ+ QWMqGRH1vUhdQJccAV RncM4sASZtK6c9YvJq LjA1 EWaxB1HhDBTsyeoeVk 50oA0kWcUhAjD7KIwz B7KxmjC8FHHirULeCS wyWOE7A29kd7O3UBDk MDAw LQP5jNQ6kG3oqKxdae ogbGVmdDsgdmVydGlj LKbkLFbcQ255SBEvsS itLj0PAZ40CT42U3Hb Pjwv dGFibGU+PHRhYmxlIH dpZHRoPScxMDAlJyBz rMjqIB5aTj8eKDNbOI CxtUppqSQsScUok7lc YXBz PJnwXY0vjCaoD3RkrL W3OOVxi0t7Tx87X75h M3PkoYA+JFLxgVZ5eM B3sD8gAiSnBxC6QKrx Z249 YpAapSEbQgkmk3lhd5 suzDb2RpBxOUDqthQe cArsFRT7r8LyUy53L4 9sIHdpZHRoPSIyMCUi IHZh hOcikp4npZ3wDn0+PG ScuSO1iUT9rZ1dUkNe DxL5XIegB207DzDodZ TpNrvgF12pT1EwoRJ+ PHRy Eyn3OCIpyEycLP0jdB RkVQljOq8sOIM7RwHn ElRaMLfeW0HsWZOihg ujfvxwcXS4OWZuISAr aW47 If4zuDykOl0yILIrNV F8VTQbtGVtS5XupC6y HeCrOLNwJPHlI7RszY ZeUPwuC884YOuaYbZ7 IHZl vzUtP5QjJUQcwUwvJy R9k6R9Lc3AsApfnVKs YS6mHxVlRUp0S6KlXm k5YGNbvHafJZ7qaGNr ZGlu Oz5tlYpamZvqQF6eWG Uphfttp774DvLsg1ow HTRzjUYdWAwgWFL8X2 7at6H6BXIjYYTySPM6 dGV4 pV9ulGqmpywybFMboV sgdmVydGljYWwtYWxp F313FSJtmPxvXhSNCm x2E4SsAee4NKPybNes ZT0n aTKbILyaEf5mjGqngQ nrTX3dOUUwwaccm390 YkBpt5brGLGyaOHfRA ffLHD0F76nl2L7IKXv MDAw BLB9wAT6iM6fbKjqyv ogbGVmdDsgdmVydGlj BUswQCaiD640LTWuwA gaXk8CVxy8S4RnPep6 ZCBz tVjqNV1daDInRStwSk 0hmStkkHmuEM5zFOZe ltssp994LyWji2cxND JnaIEwIIqvUCW0V71s b3I6 CZWvAFNhLQR0pQV3lN 1hbGlnbjogbGVmdDsg dmVydGljYWwtYWxpZ2 46IHRvcDsnPlBheWVy Ojwv dGQ+DY10cv07W8GnWe eqTlw7HJJnFVL1sNP3 pA4gUESuSCetk4U4jF N0F9BlpfJtgf4rl7lm YXBz ZTo (more content not included)... Normal [facility] CT CHEST W CONTon 04-24-2024 CT [...] Connors MD on 04/24/2024 8:48 PM Normal [facility] CREATININEon 04-22-2024 Creatinine [Mass/Vol] 0.78 mg/dL Normal 0.40-1.00 [facility] Comment on above: Result Comment: METH OD TRACEABLE TO IDMS STANDARD Performed By: #### C RT #### [facility] ([id number]) [address], [address] [place] [address] eGFR (CKD-EPI) NON-RACE DEPENDENT >90 Normal >59 [facility] Comment on above: Result Comment: Reported eGFR is based on the CKD-EPI 2020 equation that does not use a race coefficient. Performed By: #### C RT #### [facility] ([id number]) [address], [address] [place] [address] Progress Note - Nurseon 04-04 Progress Note - Nurse Gyro Mechanic spoke with Adriane at Dr. Jones office and informed her that per Dr. Barrett pt will need an echo to evaluate for pulmonary HTN before her surgery. Adriane verbalizes understanding. [Electronically Signed on: 04/18/2024 15:41 EDT] ____ Jennyfer Gresham RN [Verified on: 04/18/2024 15:41 EDT] ____ Jennyfer Gresham RN [facility] Progress Note - Nurse Dr Barrett reviewed PAT information. Per Dr. Barrett pt needs echo as recommended by pulmonology to evaluate for Pulmonary HTN. Waiting to hear back from Dr. Jones office to inform them of need for echo. [Electronically Signed on: 04/18/2024 15:20 EDT] ____ Jennyfer Gresham RN [Verified on: 04/18/2024 15:20 EDT] ____ Jennyfer Gresham RN [facility] .Auto Diff 1on 04-16-2024 Auto Wallace % 6 % Normal 09-15 [facility] Comment on above: Performed By: #### 1 [id number], [id number], [id number] ####[facility] (DEFAULT)[address] [place] [address] Baso Abs# 0.0 x10 Normal 0.0-0.2 [facility] Comment on above: Performed By: #### 1 [id number], [id number], [id number] ####[facility] (DEFAULT)[address] [place] [address] Basophils/100 WBC (Bld) 0.5 % Normal 0.2-2.0 [facility] Comment on above: Performed By: #### 1 [id number], [id number], [id number] ####[facility] (DEFAULT)[address] [place] [address] Eos Abs# 0.1 x10 Normal 0.0-0.4 [facility] Comment on above: Performed By: #### 1 [id number], [id number], [id number] ####[facility] (DEFAULT)[address] [place] [address] 11416 Eosinophils/100 WBC (Bld) 1.4 % Normal 0.9-4.0 [facility] Comment on above: Performed By: #### 1 [id number], [id number], [id number] ####[facility] (DEFAULT)[address] [place] [address] 09313 Lymph Abs# 1.9 x10 Normal 1.3-2.9 [facility] Comment on above: Performed By: #### 1 [id number], [id number], [id number] ####[facility] (DEFAULT)[address] [place] [address]206 Lymphocytes/100 WBC (Bld) 37 % Normal 14-48 [facility] Comment on above: Performed By: #### 1 [id number], [id number], [id number] ####[facility] (DEFAULT)[address] [place] [address] Wallace Abs# 0.3 x10 Normal 0.0-0.8 [facility] Comment on above: Performed By: #### 1 [id number], [id number], [id number] ####[facility] (DEFAULT)[address] [place] [address]24 Neut Abs# 2.8 x10 Normal 1.5-9.2 [facility] Comment on above: Performed By: #### 1 [id number], [id number], [id number] ####[facility] (DEFAULT)[address] [place] [address]889 Neutrophils/100 WBC (Bld) 55 % Normal 44-88 [facility] Comment on above: Performed By: #### 1 [id number], [id number], [id number] ####[facility] (DEFAULT)[address] [place] [address] Standardon 04-16-2024 eGFR Non AA >60 Invalid Interpretation Code [facility] Comment on above: Performed By: #### 1 [id number], [id number], [id number] ####[facility] (DEFAULT)[address] [place] [address] 85871 eGFR AA >60 Invalid Interpretation Code [facility] Comment on above: Performed By: #### 1 [id number], [id number], [id number] ####[facility] (DEFAULT)[address] [place] [address] 76305 Anion gap [Moles/Vol] 11.4 mmol/L Normal 5.0-19.0 [facility] Comment on above: Performed By: #### 1 [id number], [id number], [id number] ####[facility] (DEFAULT)[address] [place] [address] Calcium [Mass/Vol] 8.7 mg/dL Low 8.9-10.3 [facility] Comment on above: Performed By: #### 1 [id number], [id number], [id number] ####[facility] (DEFAULT)[address] [place] [address] 57547 Chloride [Moles/Vol] 100 mmol/L Low 101-111 [facility] Comment on above: Performed By: #### 1 [id number], [id number], [id number] ####[facility] (DEFAULT)[address] [place] [address] 82748 CO2 [Moles/Vol] 27 mmol/L Normal 21-32 [facility] Comment on above: Performed By: #### 1 [id number], [id number], [id number] ####[facility] (DEFAULT)[address] [place] [address] 65697 Creatinine [Mass/Vol] 0.73 mg/dL Normal 0.60-1.30 [facility] Comment on above: Performed By: #### 1 [id number], [id number], [id number] ####[facility] (DEFAULT)[address] [place] [address]3544 Glucose [Mass/Vol] 249.0 mg/dL High 74.0-118.0 [facility] Comment on above: Performed By: #### 1 [id number], [id number], [id number] ####[facility] (DEFAULT)[address] [place] [address]266 Osmolality 279 mOsm/L Invalid Interpretation Code [facility] Comment on above: Performed By: #### 1 [id number], [id number], [id number] ####[facility] (DEFAULT)[address] [place] [address] 19889 Potassium [Moles/Vol] 4.4 mmol/L Normal 3.6-5.1 [facility] Comment on above: Performed By: #### 1 [id number], [id number], [id number] ####[facility] (DEFAULT)[address] [place] [address] 84051 Sodium [Moles/Vol] 134.0 mmol/L Low 136.0-144.0 [facility] Comment on above: Performed By: #### 1 [id number], [id number], [id number] ####[facility] (DEFAULT)[address] [place] [address] 79383 Urea nitrogen [Mass/Vol] 20 mg/dL Normal 8-26 [facility] Comment on above: Performed By: #### 1 [id number], [id number], [id number] ####[facility] (DEFAULT)[address] [place] [address] 70071 Urea nitrogen/Creatinine [Mass ratio] 27.3 mg/mg High 4.6-16.2 [facility] Comment on above: Performed By: #### 1 [id number], [id number], [id number] ####[facility] (DEFAULT)[address] [place] [address] 03801 CBC w/ Auto Diffon 4 Erythrocyte distribution width (RBC) [Ratio] 13.9 % Normal 11.5-15.0 [facility] Comment on above: Performed By: #### 1 [id number], [id number], [id number] ####[facility] (DEFAULT)[address] [place] [address] Hematocrit (Bld) [Volume fraction] 43.1 % High 33.7-40.4 [facility] Comment on above: Performed By: #### 1 [id number], [id number], [id number] ####[facility] (DEFAULT)[address] [place] [address] Hemoglobin (Bld) [Mass/Vol] 14.0 g/dL Normal 11.3-15.9 [facility] Comment on above: Performed By: #### 1 [id number], [id number], [id number] ####[facility] (DEFAULT)[address] [place] [address] Man Diff? Auto Invalid Interpretation Code [facility] Comment on above: Performed By: #### 1 [id number], [id number], [id number] ####[facility] (DEFAULT)[address] [place] [address] 90092 MCH (RBC) [Entitic mass] 28 pg Normal 24-34 [facility] Comment on above: Performed By: #### 1 [id number], [id number], [id number] ####[facility] (DEFAULT)[address] [place] [address] 79005 MCHC (RBC) [Mass/Vol] 33 g/dL Normal 26-37 [facility] Comment on above: Performed By: #### 1 [id number], [id number], [id number] ####[facility] (DEFAULT)[address] [place] [address] 68569 MCV (RBC) [Entitic vol] 86 fL Normal 81-100 [facility] Comment on above: Performed By: #### 1 [id number], [id number], [id number] ####[facility] (DEFAULT)[address] [place] [address] 29938 Platelet 204 x10 Normal 138-427 [facility] Comment on above: Performed By: #### 1 [id number], [id number], [id number] ####[facility] (DEFAULT)[address] [place] [address] 86829 Platelet mean volume (Bld) [Entitic vol] 7.4 fL Normal 6.3-10.2 [facility] Comment on above: Performed By: #### 1 [id number], [id number], [id number] ####[facility] (DEFAULT)[address] [place] [address] 40874 RBC 4.99 x10 Normal 3.70-5.30 [facility] Comment on above: Performed By: #### 1 [id number], [id number], 7695025 ####[facility] (DEFAULT)[address] [place] [address] 49694 WBC 5.1 x10 Normal 3.5-10.5 [facility] Comment on above: Performed By: #### 1 [id number], [id number], [id number] ####[facility] (DEFAULT)[address] [place] [address] 07146 HGB A1C (GLYCO-HGB)on 2023 Glucose [Mass/Vol] 229 mg/dL Normal [facility] Comment on above: Performed By: #### H A1C #### [facility] ([id number]) [address] [place] [address], [address] [place] [address] HbA1c (Bld) [Mass fraction] 9.6 % High 4.4-5.6 [facility] Comment on above: Result Comment: NOTE ADA Guidelines Result HgbA1c Normal : less than 5.7 % Prediabetes : 5.7 % to 6.4 % Diabetes : > 6.4 % Use with caution in patients with abnormal hemoglobin variants as the half-life of red blood cells and in vivo glycation rates are affected. Performed By: #### H A1C #### [facility] ([id number]) [address] [place] [address], [address] [place] [address] Bacteria identified Cx Nom ( U)on 12-23-2023 Interpretation and review of laboratory results Abnormal [facility] Service comment (Unsp spec) [Interp] >100,000 ORGANISMS/mL ESCHERICHIA COLI Abnormal [facility] Service comment (Unsp spec) [Interp] <10,000 ORGANISMS/mL NORMAL URO GENITAL MAYI [facility] Basic Metabolic Panelon 12-04 Anion gap [Moles/Vol] 8 mmol/L 5 - 15 mmol/L [facility] Calcium [Mass/Vol] 8.2 mg/dL Low 8.5 - 10.5 mg/dL [facility] Chloride [Moles/Vol] 104 mmol/L 98 - 109 mmol/L [facility] CO2 [Moles/Vol] 25 mmol/L 22 - 32 mmol/L [facility] Creatinine [Mass/Vol] 0.89 mg/dL 0.40 - 1.00 mg/dL [facility] Comment on above: METHOD TRACEABLE TO [facility] STANDARD eGFR (CKD-EPI)non-race dependent 82 - PINF [facility] Comment on above: Reported eGFR is based on the CKD-EPI 2020 equation that does not use a race coefficient. Glucose [Mass/Vol] 215 mg/dL High 65 - 99 mg/dL [facility] Interpretation and review of laboratory results Abnormal [facility] Potassium [Moles/Vol] 4.3 mmol/L 3.5 - 5.0 mmol/L [facility] Sodium [Moles/Vol] 137 mmol/L 134 - 146 mmol/L [facility] Urea nitrogen [Mass/Vol] 22 mg/dL 5 - 23 mg/dL [facility] CBC without diffon Erythrocyte distribution width (RBC) [Ratio] 13.8 % 11.5 - 15.0 % [facility] Hematocrit (Bld) [Volume fraction] 33.8 % Low 35 - 47 % [facility] Hemoglobin (Bld) [Mass/Vol] 11.5 g/dL Low 11.7 - 15.5 g/dL [facility] Interpretation and review of laboratory results Abnormal [facility] MCH (RBC) [Entitic mass] 29.2 pg 27 - [address] [facility] MCHC (RBC) [Mass/Vol] 34.0 g/dL 32 - 36 g/dL [facility] MCV (RBC) [Entitic vol] 86 fL 80 - [address] [facility] Platelet mean volume (Bld) [Entitic vol] 7.6 fL 7 - [address] [facility] Platelets (Bld) [#/Vol] 183 10*3/uL [facility] RBC (Bld) [#/Vol] 3.94 10*6/uL [facility] WBC corrected for nucl RBC Auto (Bld) [#/Vol] 4.0 [facility] Glucose Glucometer (BldC) [M ass/Vol]on 12-23-2023 Glucose [Mass/Vol] 309 mg/dL High 65 - 99 mg/dL [facility] Interpretation and review of laboratory results Abnormal [facility] Glucose [Mass/Vol] 236 mg/dL High 65 - 99 mg/dL [facility] Interpretation and review of laboratory results Abnormal [facility] Magnesiumon 12-23-2023 Magnesium [Mass/Vol] 2.0 mg/dL 1.8 - 2.6 mg/dL [facility] No Panel Informationon 12-22 [facility] Basic Metabolic Panelon 12-03 Anion gap [Moles/Vol] 10 mmol/L 5 - 15 mmol/L [facility] Calcium [Mass/Vol] 8.3 mg/dL Low 8.5 - 10.5 mg/dL [facility] Chloride [Moles/Vol] 100 mmol/L 98 - 109 mmol/L [facility] CO2 [Moles/Vol] 25 mmol/L 22 - 32 mmol/L [facility] Creatinine [Mass/Vol] 0.87 mg/dL 0.40 - 1.00 mg/dL [facility] Comment on above: METHOD TRACEABLE TO [facility] STANDARD eGFR (CKD-EPI)non-race dependent 84 - PINF [facility] Comment on above: Reported eGFR is based on the CKD-EPI 2020 equation that does not use a race coefficient. Glucose [Mass/Vol] 301 mg/dL High 65 - 99 mg/dL [facility] Interpretation and review of laboratory results Abnormal [facility] Potassium [Moles/Vol] 4.0 mmol/L 3.5 - 5.0 mmol/L [facility] Sodium [Moles/Vol] 135 mmol/L 134 - 146 mmol/L [facility] Urea nitrogen [Mass/Vol] 28 mg/dL High 5 - 23 mg/dL [facility] CBC without diffon Erythrocyte distribution width (RBC) [Ratio] 13.4 % 11.5 - 15.0 % [facility] Hematocrit (Bld) [Volume fraction] 36.6 % 35 - 47 % [facility] Hemoglobin (Bld) [Mass/Vol] 12.3 g/dL 11.7 - 15.5 g/dL [facility] MCH (RBC) [Entitic mass] 28.9 pg 27 - [address] [facility] MCHC (RBC) [Mass/Vol] 33.6 g/dL 32 - 36 g/dL [facility] MCV (RBC) [Entitic vol] 86 fL 80 - [address] [facility] Platelet mean volume (Bld) [Entitic vol] 7.4 fL 7 - [address] [facility] Platelets (Bld) [#/Vol] 220 10*3/uL [facility] RBC (Bld) [#/Vol] 4.26 10*6/uL [facility] WBC corrected for nucl RBC Auto (Bld) [#/Vol] 5.1 [facility] Glucose Glucometer (BldC) [M ass/Vol]on 12-22-2023 Glucose [Mass/Vol] 283 mg/dL High 65 - 99 mg/dL [facility] Glucose [Mass/Vol] 269 mg/dL High 65 - 99 mg/dL [facility] Interpretation and review of laboratory results Abnormal [facility] Glucose [Mass/Vol] 402 mg/dL Critically high 65 - 99 mg/d L [facility] Interpretation and review of laboratory results Abnormal [facility] Glucose [Mass/Vol] 325 mg/dL High 65 - 99 mg/dL [facility] Interpretation and review of laboratory results Abnormal [facility] Magnesiumon 12-22-2023 Magnesium [Mass/Vol] 1.9 mg/dL 1.8 - 2.6 mg/dL [facility] No Panel Informationon 12-21 [facility] Basic Metabolic Panelon 12-03 Anion gap [Moles/Vol] 9 mmol/L 5 - 15 mmol/L [facility] Calcium [Mass/Vol] 8.7 mg/dL 8.5 - 10.5 mg/dL [facility] Chloride [Moles/Vol] 96 mmol/L Low 98 - 109 mmol/L [facility] CO2 [Moles/Vol] 29 mmol/L 22 - 32 mmol/L [facility] Creatinine [Mass/Vol] 0.80 mg/dL 0.40 - 1.00 mg/dL [facility] Comment on above: METHOD TRACEABLE TO [facility] STANDARD eGFR (CKD-EPI)non-race dependent - PINF [facility] Comment on above: Reported eGFR is based on the CKD-EPI 2020 equation that does not use a race coefficient. Glucose [Mass/Vol] 340 mg/dL High 65 - 99 mg/dL [facility] Interpretation and review of laboratory results Abnormal [facility] Potassium [Moles/Vol] 4.2 mmol/L 3.5 - 5.0 mmol/L [facility] Sodium [Moles/Vol] 134 mmol/L 134 - 146 mmol/L [facility] Urea nitrogen [Mass/Vol] 27 mg/dL High 5 - 23 mg/dL [facility] CBC without diffon Erythrocyte distribution width (RBC) [Ratio] 13.2 % 11.5 - 15.0 % [facility] Hematocrit (Bld) [Volume fraction] 36.6 % 35 - 47 % [facility] Hemoglobin (Bld) [Mass/Vol] 12.6 g/dL 11.7 - 15.5 g/dL [facility] MCH (RBC) [Entitic mass] 29.0 pg 27 - [address] [facility] MCHC (RBC) [Mass/Vol] 34.3 g/dL 32 - 36 g/dL [facility] MCV (RBC) [Entitic vol] 85 fL 80 - [address] [facility] Platelet mean volume (Bld) [Entitic vol] 7.3 fL 7 - [address] [facility] Platelets (Bld) [#/Vol] 213 10*3/uL [facility] RBC (Bld) [#/Vol] 4.33 10*6/uL [facility] WBC corrected for nucl RBC Auto (Bld) [#/Vol] 5.0 [facility] Glucose Glucometer (BldC) [M ass/Vol]on 12-21-2023 Glucose [Mass/Vol] 363 mg/dL High 65 - 99 mg/dL [facility] Interpretation and review of laboratory results Abnormal [facility] Glucose [Mass/Vol] 323 mg/dL High 65 - 99 mg/dL [facility] Interpretation and review of laboratory results Abnormal [facility] Glucose [Mass/Vol] 307 mg/dL High 65 - 99 mg/dL [facility] Interpretation and review of laboratory results Abnormal [facility] Glucose [Mass/Vol]on 024 Interpretation and review of laboratory results Abnormal [facility] Glucose random or fastingon 12-21-2023 Glucose [Mass/Vol] 409 mg/dL Critically high 65 - 99 mg/d L [facility] Magnesiumon 12-21-2023 Magnesium [Mass/Vol] 1.9 mg/dL 1.8 - 2.6 mg/dL [facility] No Panel Informationon 12-20 [facility] Acetone, (BetaHydroxybutyrat e, Ketone) quantitative, serumon 12-20-2023 Beta hydroxybutyrate [Moles/Vol] 0.14 mmol/L 0.02 - 0.27 mmol/L [facility] Beta hydroxybutyrate [Moles/ Vol]on 12-20-2023 [facility] CBC auto differentialon 12-03 Basophils (Bld) [#/Vol] 0.0 10*3/uL [facility] Basophils/100 WBC (Bld) 0.5 % [facility] Eosinophils (Bld) [#/Vol] 0.1 10*3/uL [facility] Eosinophils/100 WBC (Bld) 1.1 % [facility] [facility] Erythrocyte distribution width (RBC) [Ratio] 13.6 % 11.5 - 15.0 % [facility] Hematocrit (Bld) [Volume fraction] 40.4 % 35 - 47 % [facility] Hemoglobin (Bld) [Mass/Vol] 13.2 g/dL 11.7 - 15.5 g/dL [facility] Lymphocytes (Bld) [#/Vol] 2.3 10*3/uL [facility] Lymphocytes/100 WBC (Bld) 37.6 % [facility] MCH (RBC) [Entitic mass] 28.8 pg 27 - [address] [facility] MCHC (RBC) [Mass/Vol] 32.8 g/dL 32 - 36 g/dL [facility] MCV (RBC) [Entitic vol] 88 fL 80 - [address] [facility] Monocytes (Bld) [#/Vol] 0.4 10*3/uL [facility] Monocytes/100 WBC (Bld) 6.3 % [facility] Neutrophils (Bld) [#/Vol] 3.3 10*3/uL [facility] Neutrophils/100 WBC (Bld) 54.5 % [facility] Platelet mean volume (Bld) [Entitic vol] 7.6 fL 7 - [address] [facility] Platelets (Bld) [#/Vol] 227 10*3/uL [facility] RBC (Bld) [#/Vol] 4.60 10*6/uL [facility] WBC corrected for nucl RBC Auto (Bld) [#/Vol] 6.1 [facility] Comprehensive metabolic pane rodriguez 12-20-2023 Albumin [Mass/Vol] 3.4 g/dL 3.2 - 5.3 g/dL Pr [facility] ALP [Catalytic activity/Vol] 91 U/L 39 - 130 U/L [facility] ALT No additional P-5'-P [Catalytic activity/Vol] 23 U/L 0 - 31 U/L [facility] Anion gap [Moles/Vol] 12 mmol/L 5 - 15 mmol/L [facility] AST [Catalytic activity/Vol] 17 U/L 0 - 41 U/L [facility] Bilirubin [Mass/Vol] 0.4 mg/dL 0.3 - 1.2 mg/dL [facility] Calcium [Mass/Vol] 9.0 mg/dL 8.5 - 10.5 mg/dL [facility] Chloride [Moles/Vol] 87 mmol/L Low 98 - 109 mmol/L [facility] CO2 [Moles/Vol] 24 mmol/L 22 - 32 mmol/L [facility] Creatinine [Mass/Vol] 1.17 mg/dL High 0.40 - 1.00 mg/dL [facility] Comment on above: METHOD [facility] eGFR (CKD-EPI)non-race dependent 59 Low - PINF [facility] Comment on above: Reported eGFR is based on the CKD-EPI 2020 equation that does not use a race coefficient. Glucose [Mass/Vol] 928 mg/dL Critically high 65 - 99 mg/d L [facility] Interpretation and review of laboratory results Abnormal [facility] Potassium [Moles/Vol] 4.7 mmol/L 3.5 - 5.0 mmol/L [facility] Protein [Mass/Vol] 7.5 g/dL 6.0 - 8.0 g/dL [facility] Sodium [Moles/Vol] 123 mmol/L Low 134 - 146 mmol/L [facility] Urea nitrogen [Mass/Vol] 31 mg/dL High 5 - 23 mg/dL [facility] D-Dimeron 12-20-2023 Fibrin D-dimer DDU (PPP) [Mass/Vol] NINF [facility] Comment on above: Results <255 ng/mL DDU: The presence of a VTE can safely be excluded with a negative D-Dimer result and Wells score. A negative result doesn't exclude the possibility of DIC. The test be repeated along with other diagnostic tests if the patient's symptoms persist or worsen. [email or web address] ECG 12 leadon 12-20-[address] [facility] Fibrin D-dimer DDU (PPP) [Ma ss/Vol]on 12-20-2023 [facility] Glucose Glucometer (BldC) [M ass/Vol]on 12-20-2023 Glucose [Mass/Vol] 350 mg/dL High 65 - 99 mg/dL [facility] Interpretation and review of laboratory results Abnormal [facility] Glucose [Mass/Vol] mg/dL Critically high 65 - 99 mg/d L [facility] Comment on above: SEE LAB RESULTS FOR CONFIRMATION Interpretation and review of laboratory results Abnormal [facility] Glucose [Mass/Vol] mg/dL Critically high 65 - 99 mg/d L [facility] Comment on above: SEE LAB RESULTS FOR CONFIRMATION Interpretation and review of laboratory results Abnormal [facility] Glucose [Mass/Vol] mg/dL Critically high 65 - 99 mg/d L [facility] Comment on above: SEE LAB RESULTS FOR CONFIRMATION Interpretation and review of laboratory results Abnormal [facility] Natriuretic peptide B [Mass/ Vol]on 12-20-2023 Natriuretic peptide B (Bld) [Mass/Vol] 10 pg/mL NINF - 100.0 pg/mL [facility] POCT Nursing Urine Macroscop ic UAon 12-20-2023 Bilirubin Ql (U) Negative Negative^Negative P [facility] Glucose [Mass/Vol] mg/dL Abnormal Negative^ Negative mg/dL [facility] Hemoglobin Ql (U) Negative Negative^Negative [facility] Interpretation and review of laboratory results Abnormal [facility] Ketones (U) [Mass/Vol] Negative Negative^Negative mg/dL [facility] Leukocyte esterase Test strip Ql (U) Negative Negative^Negative [facility] Nitrite Ql (U) Positive Abnormal Negative^Negative [facility] pH (U) 5.0 [pH] 5.0 - 8.5 [facility] Protein Ql (U) Negative Negative^Nega tive mg/dL [facility] Specific gravity (U) [Rel density] <=1.005 1.003 - 1.035 [facility] Urobilinogen Qn (U) 0.2 NINF [facility] Troponin I, High Sensitivity on 12-20-2023 Troponin I.cardiac High sensitivity method [Mass/Vol] ng/L [facility] - 16 ng/L [facility] Troponin I, High Sensitivity 1 Houron 12-20-2023 Troponin I.cardiac High sensitivity method [Mass/Vol] 3 ng/L [facility] - 16 ng/L [facility] Troponin I.cardiac High sens itivity method [Mass/Vol]on 12-20-2023 [facility] XR Chest Single viewon 12-19 Single view chest History:sob Difficulty breathing, shortness of breath Comparison: 06/04/2023 Findings: Single portable view of the chest. Stable cardia mediastinal silhouette. No focal opacity, effusion or pneumothorax. Impression: No evidence of acute cardiac pulmonary process. 53 Finalized by Aliya Gan MD on 12/20/2023 5:35 PM [facility] Aliya Gan MD - 12/20/2023 Single view chest History:sob Difficulty breathing, shortness of breath Comparison: 06/04/2023 Findings: Single portable view of the chest. Stable cardia mediastinal silhouette. No focal opacity, effusion or pneumothorax. Impression: No evidence of acute cardiac pulmonary process. 53 Finalized by Aliya Gan MD on 12/20/2023 5:[address] [facility] Radiology Study observation (narrative) [facility] XR Chest Single viewOrdered By: Aliya Gan on 12-20-2023 [facility] Work Phone: AFB CULTURE(CONCENTRATED)on 11-22-2023 Mycobacterium sp identified Org specific cx Nom (Unsp spec) AFB SMEAR NO ACID FAST BACILLI (CONCENTRATED SMEAR) CULTURE RESULTS NO ACID FAST BACILLI ISOLATED IN 8 WEEKS Normal [facility] Comment on above: Performed By: #### 5 43-9 #### [facility] ([id number]) [address], [address] [place] [address] AFB CULTURE(DIRECT)on 2023 Mycobacterium sp identified Org specific cx Nom (Unsp spec) AFB SMEAR NO ACID FAST BACILLI (DIRECT SMEAR) CULTURE RESULTS NO ACID FAST BACILLI ISOLATED IN 8 WEEKS Normal [facility] Comment on above: Performed By: #### 5 43-9 #### [facility] ([id number]) [address], [facility] [address] [place] [address] ANAEROBE CULTUREon 4 Bacteria identified Anaer cx Nom (Unsp spec) CULTURE RESULTS NO GROWTH 5 DAYS Normal [facility] Comment on above: Performed By: #### B FCT #### [facility] ([id number]) [address], [address] AND DIFFon 2023 BODY FLUID COMMENT Interpre tation-------- Normal [facility] Comment on above: Result Comment: Refe rence values for this fluid type are undefined, as fluid accumulation is considered abnormal. Performed By: #### B FCT #### [facility] ([id number]) [address], [address] [address] FLUID CLARITY CLEAR Normal [facility] Comment on above: Performed By: #### B FCT #### [facility] ([id number]) [address], [address] [address] FLUID COLOR COLORLESS Normal [facility] Comment on above: Performed By: #### B FCT #### [facility] ([id number]) [address], [facility] [address] [place] [address] FLUID LYMPHOCYTE 17 % Normal [facility] Comment on above: Performed By: #### B FCT #### [facility] ([id number]) [address], [address] [place] [address] FLUID NEUTROPHILS 8 % Normal [facility] Comment on above: Performed By: #### B FCT #### [facility] ([id number]) [address] [facility], [address] [place] [address] 7 /uL Normal [facility] Comment on above: Performed By: #### B FCT #### [facility] ([id number]) [address] [facility], [address] [place] [address] FLUID SPECIMEN TYPE BRONCHOALVEOLAR LAVAGE Normal [facility] Comment on above: Result Comment: RIGH T LUNG UPPER LOBE Performed By: #### B FCT #### [facility] ([id number]) [address] [facility], [address] [place] [address] MACROPHAGES 75 % Normal [facility] Comment on above: Performed By: #### B FCT #### [facility] ([id number]) [address] [facility], [address] [place] [address] 9 /uL Normal [facility] Comment on above: Performed By: #### B FCT #### [facility] ([id number]) [address] [place] [address], [address] [place] [address] Cytologyon 11-22-2023 Cytology Normal [facility] Comment on above: Result Comment: [facility] [address] [place] [address] Cytology Consultation Patient Name:CARISSA SANTOS:1980 (Age: 43)Gender:FTaken:11/22/2023eported:11/23/2023 17:47Physician(s):Libby Finley MD ([phone])Copy To: Rec. #:[id number]: #[id number] Final Cytologic Diagnosis 1. 4R node, endobronchial ultrasound-guided fine needle aspirate (8 smears, 1 ThinPrep): Lymphocytes are present consistent with lymph node. No malignant cells identified. 2. Right upper lobe lung bronchoalveolar lavage (1 ThinPrep, 2 H&E cell block): No malignant cells identified. gp/11/23/2023 Interpretation performed at [facility], [address] [place] [address], License number: [id number].Electronically Signed Out By Irving Harris MD Additional [...] CD5, CD7, CD10, CD19, CD20, CD23, CD45, Chili, and Lambda. Immunophenotyping Comment: Immunophenotyping has been used in this diagnostic evaluation. This test was developed and its performance characteristics determined by the [facility] Department. It has not been [...] lymph node. Dr. Harris Interpretation provided at [facility], [address] [id number]. Gross Description 1.Prepared in Endoscopy were 8 [...] 1: 4R node fine needle aspirate Non WEBSITE PROGRAMMER ThinPrep, Slides Made x 8 2: Right upper lobe lung bronchoalveolar lavage Non WEBSITE PROGRAMMER ThinPrep, Cell block for Non-neurophysiological technician (M), Level 2 H&E Fee Code(s): 1; 13844, 97085, 47756(3), 33578 2; 63112, [address]150 FUNGAL CULTUREon 11-22-2023 Fungus identified Cx Nom (Unsp spec) FUNGAL SMEAR NO FUNGAL ELEMENTS SEEN ON DIRECT SMEAR CULTURE RESULTS NO FUNGUS ISOLATED AFTER 4 WEEKS [facility] Comment on above: Performed By: #### 5 80-1 #### [facility] ([id number]) [address], [address] [place], [place] [id number] Fungus identified Cx Nom (Unsp spec) FUNGAL SMEAR NO FUNGAL ELEMENTS SEEN ON CONCENTRATED SMEAR CULTURE RESULTS NO FUNGUS ISOLATED AFTER 4 WEEKS [facility] Comment on above: Performed By: #### 5 80-1 #### [facility] ([id number]) [address], [address] [place] [address] Flow cytometry specialist re view Dontrell (Unsp spec) [Interp]on 11-22-2023 FLOW CYTOMETRY TISSUE/FLUID, NON CSF/NON BAL SEE SEPARATE REPORT, REVIEWED BY PATHOLOGIST Normal [facility] Comment on above: Performed By: #### 6 9052-9 #### [facility] ([id number]) [address], [address] [place] [address] Glucose Glucometer (BldC) [M ass/Vol]on 11-22-2023 Glucose [Mass/Vol] 128 mg/dL High 65-99 [facility] LOWER RESPIRATORY CULTUREon 11-22-2023 Bacteria identified Respiratory culture Nom (Sput) GRAM STAIN 10 to 24 WHITE BLOOD CELLS/LPF 0 SQUAMOUS EPITHELIAL CELLS/LPF 0 CILIATED EPITHELIAL CELLS/LPF NO ORGANISMS SEEN CULTURE RESULTS RARE NORMAL ORAL MAYI Normal [facility] Comment on above: Performed By: #### 6 24-7 #### [facility] ([id number]) [address] [facility], [address] [place] [address] TISSUE CULTUREon 11-22-2023 Bacteria identified Aer cx Nom (Tiss) GRAM STAIN 1 to 9 WHITE BLOOD CELLS/LPF 0 SQUAMOUS EPITHELIAL CELLS/LPF NO ORGANISMS SEEN CULTURE RESULTS NO GROWTH 5 DAYS Normal [facility] Comment on above: Performed By: #### 6 27-0 #### [facility] ([id number]) [address] [place] [address], [address] [place] [address] Coding Summaryon 11-02-2023 Coding Summary HTMLBase 64 ItmgyjekKMp6hPs+PG hlYWQ+FS2UJRKgR11h gFRpkK9qL4MXZSrWTs wgQVBQTElOSyIgbmFt RX2xmMHtZAQj IC8+MP9iUSBzYpgvaN Lis8P6xSP5E49ive5q SXbipOK1GAXsWpUdcw eac3bklYw0GRlkVarr OyBt IIRxdD52VAW6rH80Id 57pLSmeBLhc3edrAl9 PkLaGOAfGRM4bNfgDT gzp0SzLTGdD27cjIYa c2U6 IGNvbGxhcHNlOyBlbX P0eR4dCHkgyurqw4vt bclsAcw7qx90gCLwz8 E8pTW8T6ZvlqI5VWTr bGQg KieleYTZaL6gcvvgw0 xvcjogIzAwMDAwMDt0 ZZb2KTLxqLcxHpHgRX 73LDX6EASvokRcQ6Yd LWFs zMquYaW3l6F9Kc9GX0 OLWqsyB8HRVSBAQRcs dGQ+MW00je04O8YpEe psQae6PEHdRSY7dPH1 aD0n LRUwPHtst8L7mTW7J3 GjlfOres9qs3dnHAWz MUwwF62abIBmq2P7JX UdzAI3TJVvkLzeCrCz aG93 Oyc+EZQfnPpdg8WlGk vqj9ccj9wqiPa0Nusb UHUlxnGybLseSNZ0v8 ItVe8gDMXndTJ6qHR3 aD0i ZfHwClF3WBeyA518Sg KxsNWtSwckM60vT0Pf dXA+XXMqQbo7EBKhzU kyEN8dY0MoCOOihoud bGVm pRspCT2pTGIhngwcHZ XgaK1yZPLfR0b7JjNk InJ4GWamI1TnYRDowt kzOm90nE8qTwUzAfM9 MGlu W0NjxxM6PZWmuHSqTD muTOF5D30bq5W1XJGv NKUyLQU3iUP8aC3hzV lnbjogbGVmdDsgdmVy dGlj YNhwIHacK728YOFjjM snPkNvZGluZyBEYXRl OiAgMDIvMjkvMjAyND wvdGQ+YJCfMDS0aFrh PSAn kFNyFZwdEa7tfIfofL opOM7oJHEcmsagYBGx nF1qABQwvJCrrGooHI 4bFPCcussxe222FePo MHB0 KGJjyODfW8QepD7vKo LhVPCzRERrV2MilOEa RXvzX557ABseLbM8HR FbziWlL5NrYQHwdOkl OiB0 t4W2Ti6Wh6VgqqldN0 RhdHVzOiAgRmluYWw8 T1JeJbxpyMK+PC90YW EhIH02INj6DZL4bRqx PSdi PCWnP2TgjE8uYzEdTF RkZGRkOyc+PHRhYmxl IHdpZHRoPScxMDAlJy WxxMlwIY9wXv5hKQBx LWNv jSlqtCTsKkFnb6bhXD DaYGigNZ6clYokT6Gw vCH1WKOkm2y9Mv94C7 3lY0HsrDC+PGNvbCB3 aWR0 dG2eCiJlQrG1AKloB6 97TfTczYJtQhjmj1ih y7qjeFi1KvM3KGQren FwcOczKDS5c6PeUe58 Y29s IHdpZHRoPSIxNSUiIH WemCuqob8xfB1dJq1+ FSIfqCT0jED7nR3kZr YqYfK6CPaxB797FmIl cCIv Gzjil1dav5vorVb6Hq IwJSIgdmFsaWduPSJ0 a2LfXf23X0VouZknq2 GnVhp1am08mTLqg2R8 bGU9 L6OdEEKdcjldrOBsoT qsOM0zSVLcvvyvKFHs xR9qKPXrO6i8LrWgYw V8XZbrF1BhltD8TVYt bGQg NJAkeCPXeU5tpqmmo3 xvcjogIzAwMDAwMDt0 VIx6WOLjuJmrKoIcHS I4SrQ8HUW7fECbvA8x bGln gdvkmQ0aUgi+UGF0aW DxqXLATH2wSkwjpQG+ JCDcGVD0lLmcPPziMD VpiY2aHFNtQ1i1NnXp LjA1 EZugZ1XreaX2WFXdfM DuQYGuhVSZyT0saxco s9mmvqqbUeXmEHFwOL b5UQn6XXEcuTqdFsXr ZWZ0 DeP1WVN6zYUsaQ1rhR ofwpmwpA9eLkb+Qmly xXlwPQF1ARw3Y3GhRb y2CRLgiUzrET0iyBCs ZGlu Jc5wdWezuUyuZH0xDF Yhopubw604DxCrd5gv FNJtcVCtTBzbIHU6E6 1aq3B6VWUfQJQmEHU6 dGV4 cG4qzLiewsqyyNOxfI sgdmVydGljYWwtYWxp P712VQVbaJofUhXxKR f1Q7JuPto3CTSxjAcz ZT0n pEWbRJvzDy4fpAvdlP mzFP6eMSYaqwfar766 ClOow4cxOOEbmTSiNC fjSKR0U49pj0M1MXVg MDAw SMF3zEK8dU2jsBwday ogbGVmdDsgdmVydGlj RMhaYGsrX960JPBaeK jsGvZlrQr9V5VfIoe7 ZCBz lUefHM5qsJHxSDbwSg 1dtHrkzUorHU6iXJKl yesod385NuUxl0myAZ ModNJrEZftZCD1H49a b3I6 ITLhAZGyXHV5vDT1dD 1hbGlnbjogbGVmdDsg dmVydGljYWwtYWxpZ2 46IHRvcDsnPlBhdGll bnQg LBwjFPy7F5XuGevesC I+JN68RPPnHC58hVNn jBJyn1vepQz2OhTqFS SdOWA8uTanIGewb1Sy ZXIt G22ulEKmb7B7MWQzqT rtyHRlMgWplSS0yK6n KBuhodzrm2voimhaNq cxr6znmp40oY24I47h IHdp ZHRoPSIzMCUiIHZhbG hflr1zfC1nKl5+PGNv cAP4sAS7bN6rUKPgQa S1IEgfT873NeVebLZk Pjxj t3kwg5aokBg4XxI9HH HuigUxmCnsSGR4u1Ux Xk95O55ySItxTXYiRR IsBERaBTMmvVrfmb4y dG9w Ii8+XVRacQZ0jJD3dF 2kKgUqHtJ8JDwaC887 IiXshBVrOqlxB38aV4 JvdXA+VXJrZkq6SLJl dHls LI1leXGbKUutIu1rWC E2PzNfNmBtCGioG2Wc EAMroqreaqflxBQ5IR KiOPJgdV43Pn7abSgc MTBw qKNDmV2queswc9dvuh ioDiCzBXPdYMu7GQr9 YGHutRotMaEfXRS5Rv L2UNJ7zRXtiV3lkXek bjog tE0vV4EgJQRvequeWv 04zR7vIoTeCoZ1VMwh Oyc+XCSXNI1PBXZRKD VHIXmsHf4JZNdmgQQ+ PHRk GXE4uHfaHYyrWDFfeR 8aXXKzN7d5BkXlJjT7 ISuzC9NjEHSuzihdPw 04oF6oZtDcCjV9IWex O2Zv kiX9VUVooWYbTWikDC B7P19mj5W5MTDiEMEr KQD9eTO5hD0oxBonti ogbGVmdDsgdmVydGlj YWwt BDhnJ281HWDgcSxtCd CaXjD6ZfL4Wfq2U3Pl Fze1ISThtDaqJP6wmJ DvCGvaKh9akEjtkBvf MC4w CXQmjthsMTPtuG6tIW MdoLGydFizRI2iHHRm wbnly667WePrFYN8YW SytHTwU3IzmK4qEgDg MDAw LNEnU9TwjVNtVKnnA7 43OUstIcQ7RJFyodHh D5LrUCSdrNltLkU1s7 R8Ka09CPEFGVMssgmd dGQ+ YQKyYVJ7rJjoKVjsKE SbdX7hYGTgE4v3AbSm LoC0RKrvM1KxUBWlou rsOf85yQ7aRvMlSbX2 MGlu K3VmdrD3KNGkiUTfBP qtADX8A14gd1Y5FFQs RUOkQBB6iEX0dN5srZ lnbjogbGVmdDsgdmVy dGlj CGobLAxxA212CXViiK snPkZFTUFMRTwvdGQ+ MOBfKOI5nQyjHZynMF IjdQ5kRIIyV2r6EhGw LjA1 PHbnB3OcINJzzzroMp 18gE9iFuQkZsP4UDhp J7VhnhP8TEOuuETuVJ nvFYH0F86dn3E3PCGo MDAw OKX9gGA3eB6fkQrotp ogbGVmdDsgdmVydGlj ENvnHHusZ508SDYgbW yaUh9ZUL62QO74W7Nn Pjwv dGFibGU+PHRhYmxlIH dpZHRoPScxMDAlJyBz xIhyTT2lEc8kWYBvFK GnhNwjtMPlVgOdv2cg YXBz MItpMS7zvBfaM9PeqY L2NCBrs5e4Nb87G96l P7ZpdIH+ANWqmEW9tW J7dI7mUiGaMtF1TSog Z249 CsLlzUGmDtrob9kyd2 xuwNu6ZaOvOJWoimFh dVnnBWY6a2UlAm17Z8 9sIHdpZHRoPSIyMCUi IHZh cIepsz6gkL8uRl9+PG YcdBW2rZB0sN7wBbEt LoV6GMqbX788VrLmmV GyDzqtR58oV1HsdIF+ PHRy Uts7ZYMlgLxpRR9wwH KnVEaiBv3aJUY9AvXv KbPoGSzdP8BxKJMici ziqnlbtLD1SEPeAEYt aW47 Tf4rnDnhAb0bGEEfMB B7MTIzyLMbH1ZehV9y UaUeFFXlYBFvI0ZixB McFCoxA584JCeqBcU0 IHZl awNbA1CkENUptLrxCh S1k0T4Ah0BdXyfqLPy II7iPdXxQSk3B2VmXc q0HLHvyAroGE9ceEXn ZGlu Aq8abJieoNpfRE1hEI Xpeqwww835KkKns1fy QOZssBKoYWayKEQ4C9 7ud1L8KKSgUDFhWAC5 dGV4 eH6jbQsvvwnztGCzxH sgdmVydGljYWwtYWxp V153QOFtiKgtLwZDZx c9T5LyYav9UQVdcElt ZT0n eOKrBEgzYl9lkKqalB ahRI0sBHJyptuja941 XoBup9hxMNQflOJeIK qxPIT6D96ur2C4YVLh MDAw PQQ1mLT1vL3zfGimqw ogbGVmdDsgdmVydGlj BQxfCYuuA211INJxrQ llMy9YTvh6M5GsUfu6 ZCBz dXwhCG2xdGBlKZhtVr 8oqRqhsEldZU5rROCu tspjx568EwSbp6pmKE GqrFCfQQpzUIZ8Q13n b3I6 GDMsNXQsZKB2bQF6yX 1hbGlnbjogbGVmdDsg dmVydGljYWwtYWxpZ2 46IHRvcDsnPlBheWVy Ojwv dGQ+ZY39cy55U4DwLc zbUzr4QHYvASE9nYU5 tC8rCAYiPRajt1F4wT V6W6RmzhBbcm9dd7pb YXBz ZTo (more content not included)... [facility] Coding Summaryon 10-04-2023 Coding Summary HTMLBase 64 ApxrwnobVQt4qBc+PG hlYWQ+EB9UBBYdY27w eYOlqU7tO3EGWIvVOi wgQVBQTElOSyIgbmFt QO8vaMCiZHMx IC8+HA2vJIQiRrfhxJ Zfy2U2wJG4Y34jdv4s CHonsFV6ZSOyBsFwue qlb0ituRd7ZNuqDaos OyBt KXNiyO27WNY2aV17Sz 45bILmjDPwf1jhqCl6 PwLoTLCxUZL6uXktZR ghm6KfXZJrC96xqOXb c2U6 IGNvbGxhcHNlOyBlbX G8jU1jEJlxjlvqc3wk qbjaVll4wp77iSBtv4 D3rWE9F0VgniV4RECn bGQg ThrzsVOCcY0ygddpy0 xvcjogIzAwMDAwMDt0 OEc3QYXgmGcoDyZaQY 27HPI1AWLeqxZbW7Ro LWFs qVvyJrR1h5J1Aq8PB2 JTZelvN0NQDDWZORmp dGQ+CQ70dw41J3RnSb jbIdv1JBZyKTO8uWC3 aD0n XCZzKQowk5R5eEF4N1 LdfzQimq9vv5exDIMu SXakX19zdLEfm1N5TT JtoCI8QCLigCajAcJx aG93 Oyc+EOMqxRlyk7SgZe mwp6vil5axlQs1Qspl SXFpjaYerApkYIM1t4 CdYs5qQRQoxWS2zTH9 aD0i FoUwDgP5EPrmU241Ur QcqPNuFdlnJ20xR5Sn dXA+KVFyVzh2FMPpzQ ztKL3hT1IyZFZussid bGVm bGwkFR9eQIEiarmwOW WnlI0uOHBvP1k0DqZr XzW3MXouH8MuWXGewg xiRb04iH3cWiOdZdS0 MGlu F8BrwfO1JCIoyFQtNB mgCWD3S97fx9E1XHYj KVYrQLI0gIO8fR7kbU lnbjogbGVmdDsgdmVy dGlj FXlhEZnzB350XFSccD snPkNvZGluZyBEYXRl OiAgMDEvMzEvMjAyND wvdGQ+OZGdJTT4kWaw PSAn qPBvPVlhLg3hjApinM mmJT2zNIHqiiqlEZFp xJ1oJIHmxXMdhLstES 0wFKLohrzep820LgEt MHB0 PFFuqEKlE2JxzZ7nAi QjWCCaLOThW6GtnLTs FVxeJ668PJkdUcD0DP AesaYlZ3UhDWUsjBhb OiB0 u7N3Ca6Na0TyojhtE9 RhdHVzOiAgRmluYWw8 M4JxZzpsfWN+PC90YW CkOR41TDd2YAR1aRyr PSdi WLRyS2XwgW7uOjBmQP RkZGRkOyc+PHRhYmxl IHdpZHRoPScxMDAlJy FsiLidXT1dDl3pLWVi LWNv bDwxmDYqBbWtu9jdSG WjQHkqDG3piVzwQ0Yk sJN1QHJqi4m8Lb79H7 8qV9ZtxBC+PGNvbCB3 aWR0 iE9zMiPeObB1WAagV6 15MxJnvPNlBmvuy9pw k9yxzIh9EiT2BAUxwi UlcXqcSSY7d7IeDf76 Y29s IHdpZHRoPSIxNSUiIH XjoUjbdj6seB7lRl6+ LJWvqRH2jSJ5bV6jDb ZfGyG4FJrqW232TzSy cCIv Qaerd8btt1actFg6Rd IwJSIgdmFsaWduPSJ0 k2FwGq93F0JujTnab5 GtXhg9qr12cWNlx4D4 bGU9 C1XiTZOjcfyopBNvvF tbGM6mDWMvgevqEJYf mY6kHWXnQ8o3RtMzOt I0CTikK9UfvkQ8HZZc bGQg CENhzMKBwJ9efamea7 xvcjogIzAwMDAwMDt0 UTx1QFFoxOeeCePrLC P9VlM0MLK6pHJmjZ0d bGln yjnfrW6fLzg+UGF0aW UydKFBKV7kHsmplVD+ RLEuXKJ3xDhmFIjvFQ IatN3zEUHxM0b5NuRx LjA1 DZnjV1EgcyD3ENTuzE VyLDNdnRJKdO1jafcx h2lgwlewNwNhOOLiJY y9PUb5HOSgbJvmWhIq ZWZ0 WjT2YUZ1aSYavX3fuJ pbctmzwK3gKpb+Qmly vKefZKB6FEc3L8ZpEa b6NOTukAgcDG1yfQUj ZGlu He9gfUeuoGyrMF0bRI Xrzkazz487YxNks3tg IMNfgBHeTIjoJDG9Y5 8li5N6KNLcPFWdGLH7 dGV4 jI5vnQesxdatbDEjmC sgdmVydGljYWwtYWxp I799IHIfrUgoGjLcWZ x1J4ZuPgg1QJKhaVyp ZT0n fGSkDEjcLh0hyBptgN dzVV9kHZXjbdjai986 GoKkm1elGVExwZLaBL wwNJL4L83pf1E2WSSa MDAw LTG0cXA1yP0rpYxfmw ogbGVmdDsgdmVydGlj JBhxVEjlM329VKGqaA sfXmCjqPh5Z0NtKrz8 ZCBz lOazPZ3iqVTpFQqgTu 0eiIpicIghHP5qKZNw niujq628FsGvi8lrWO QmbIJlAKlhHLT8I39d b3I6 BAMqXYXtSUD2vCU3gA 1hbGlnbjogbGVmdDsg dmVydGljYWwtYWxpZ2 46IHRvcDsnPlBhdGll bnQg YYvoSQj6C2SpAtgrbE I+LL24VAMeXQ29aEUu yOJsb0axdNo2FyBsRX ZbLLK3kNoqWTueq9Yi ZXIt O63bzWHks2O8PQLklW lctVSgPoNpuZH8jR4t XSjecxrmz5pnaypdYf ohs6wwwn38gS27F26s IHdp ZHRoPSIzMCUiIHZhbG fmyz4brX5cJc0+PGNv hHO3nKD6bB5xPWZhLh X8CUevT233WgSroJLj Pjxj s7vyr4ptoUp0JwX7XU HewjCqvKwxJVN9k2Kx Yz85W19zUBgkXMSgYC UpJNVtKSTblYhjpa6p dG9w Ii8+GRBzmLR8xIP9xV 2mJtVvJaY5EXrgH740 ZeFrpDJjXyhzV02tB5 JvdXA+HYLkYdx3QHTo dHls OM3hsDOdYMfsQg9iWM N4VcKnWmZpFWwhF7Hj BALjmmajsaxzoKT8GK CuUPIlrH91Ft4cyDyw MTBw xIOUvP9osutcc4cynw qsBeGhGFZhBLw4CJj3 CKUqwWrnKrRfYQT7Pw S7YLZ9fPGdrC3agCii bjog yN5aO4ElWJDvnhzmWx 41bD1fAvUbYhL3USop Oyc+XLIBOP4UNSRIOM KUNXccZs9BSSxrvGL+ PHRk VEB4yBxnSExoCPMylD 0gCJOkT8j9SpSaPdC9 YBryD1TuYCIxtkbbGk 59gY6yIqWuKuI0WXou O2Zv qsQ9KCFrnDZmAHlbJZ R2S19zg7G0MNHaXHWx CSZ4aDS2qR6cgAyspz ogbGVmdDsgdmVydGlj YWwt IGhkL251ZVOtzUbeKx IgGeD0ItT0Ozz4U8Ik Ezc7JWDdqVhyQS1pvB ZjENbxIc8soBvxeMjh MC4w HXMllxqvCWEbtL6tCH DbhJZhdChmZV1rKFSj rityl046KcMaWDS9AZ PzkSMnB2KedF1hNwVe MDAw PPCiY4NvgWWpWXgtH7 05SKjdBsC1DZLmzjKx P3JvDFIgcCijDtE7f3 I3Ry31GGWQWNNfelas dGQ+ PZTkEAL3yCstNTjnRT DstH4xZDZtN5r7PdOt YiK1XBewD3TpADCdqo xuKm88sX0dAyQvPkM9 MGlu R3BnivO7RKQviJLfBX gkCRF2U58ae1K9XGFk VCCqRIY9sBY1lN7yaO lnbjogbGVmdDsgdmVy dGlj BXfuEDhsJ969RJLyvV snPkZFTUFMRTwvdGQ+ WXNrXCZ4sAjqKQteEY XgfK3oFPRbQ2m8KdLl LjA1 ZKmtR9RmYZScmcxpLz 66vD6dVbVhAqO5YHrb B8PjujS7XOEsbJDcEV auJGK2D63an3I5LBRo MDAw NPJ9yLO1iO5egGxljx ogbGVmdDsgdmVydGlj IJewNAwdW049USCokI snPkRheSBTdXJnZXJ5 PC90 QQ36C7PqHhtabFJydX U+PHRhYmxlIHdpZHRo PScxMDAlJyBzdHlsZT 3cEl3qFESnULKbqHej cHNl TgCvt5nwRFDjJMhgBI 6cjBidQ0RpoGC0GNJc d6k9Af29T42bK4IekT A+REBgeKW9oMD8bZ0t MzAl OmC3GIgfY748NgJnhS CuYjpdr4ceh6apaUb6 IjMwJSIgdmFsaWduPS N0k9WcZj27Y02pWQtj ZHRo PSIyMCUiIHZhbGlnbj 2ihW5fAb4+PGNvbCB3 qSK5uZ1qPcLnBjG6DF rgF587DsBqsLUdWlyc Y29s G5OulQA+WEGoMxh0SB IouHkqVN1yfPMgPRtj Az2lWGO4JwKgQtHaTY tyY8MlHEAzzmnmxwty aHQ6 WPJgLGRxaA47Um8ucD liNj1zWGZzBLT3NHIr rVLtG5ZyzB7tVaAcAO TrTCSqK1QvhMCpDUyx Z246 STsqVaY9MZXlwzPxM2 RyURVxbTbrHrN5f0Z4 Gk7ZePbxyIDsUC0tQh BxEYo7E3IdUas2QTYb dHls IE4iuTUyNDxbFo2rfG eoaVoqOO8jQTKhzrpz t860JgCsz9obENKzaY CqNXjiHAB5Y14mn3W6 ICMw YLJdAUF8cRZ7dC6buE lnbjogbGVmdDsgdmVy uDjjMOlkOBssT644KA GkzEupGgQRTfp9K3Uz Pjx0 DVPlzSxcJV1nwKEmPB zlQp2bhPghvLydAO3i HCHhzzubq609ZpHuu4 xkIDEwcHQgVGltZXM7 Y29s e3J4FNJgQVWiCIQ9oX D5hG2olDahcdyarDCn dDsgdmVydGljYWwtYW wlR680YVHetWnrSg6Y Tjo8 H1HcZte8GDPofSlnPV 9scERdFIvsNf8kdJlq mXucAR8fPNXfrzzht1 37DfPoi4snKHJnzATq VGlt GXQ7Q69jx5X6NHOkAC XjGJD6gBX6gW0rpGsl bjogbGVmdDsgdmVydG wmHYfyTRfpL632MBFf cDsn PlBheWVyOjwvdGQ+PC 06nh49C6ApLuopPhh8 HTYbZKO4lOI4pL4hKR DvWQxji7U0tSI0J1Hr cmRl ci1 (more content not included)... [facility] Consent Formson 09-26-2023 Consent Forms [id number]. [id number] [id number]#1.00OTGTIFF [facility] Discharge Instructionson Discharge Instructions [id number]#1.00OTGTIFF [facility] Anesthesia Noteon 09-25-2023 Anesthesia Note Patient: CARISSA [...] 09/25/2023 08:49 EST] ____ Angela Abrams MD [facility] Anesthesia Note Patient: CAIRSSA SANTOS Age: 43 years Sex: FEMALE : [...] history): All Problems Diabetes / SNOMED CT 831932153 / Confirmed HTN (hypertension) / SNOMED CT 9186014309 / Confirmed Histories Family History: No family history items have been selected or recorded. Procedure history: Genital warts (484409944). Cholecystectomy (71207991). Social History Electronic Cigarette/Vaping Assessment Electronic Cigarette [...] Oriented. Review / Management Laboratory Results Plan [place] [employer] Anesthesiologists# (ASA) physical status classification: [...] 09/25/2023 07:49 EST] ____ Angela Abrams MD [facility] Inpatient Patient Summaryon 09-25-2023 [place]patient [place] [address] Patient Discharge Instructions Name: CARISSA SANTOS : 1980 Patient Address: [address] [place], [place] [address] [id number] Primary Care Provider: Name: DIAZ DALTON After you are discharged if you find you have any questions, please, call [phone] ext [phone] to speak to a nurse. Discharge Diagnosis: [...] alcohol and/or drug addiction problems; contact the [facility] 27/03 Crisis Hotline -Text 9CAZZ gh 030994. If you received any narcotics, sedation, or [...] business decisions or sign any legal documents [facility] would like to thank you for allowing us to assist you with your healthcare needs. The following includes patient education materials and information regarding your injury/illness. CARISSA SANTOS has been given the following list of follow-up instructions, prescriptions, and patient education materials: Follow-up Instructions With: Address: When: Barry Snowden [address] [place], [place] [id number] [facility] (1) 10/05/2023 11:00 AM Medications During the [...] doctor pr (more content not included)... [facility] 09-25-2023 MAGR Intraoperative Record MAGR Intra-Op Record Summary Primary Physician: Arianna Miller DO Finalized Date/Time: 09/25/23 08:48:16 Pt. Name: CARISSA SANTOS/Sex: 1980 FEMALE Med Rec #: [id number] Physician: Arianna Miller DO Financial #: [id number] Pt. Type: D Room/Bed: / Admit/Disch: 09/25/23 [...] Andrew DO Role Performed Surgeon - Primary Acquisition Manager Anesthesiologist of Record Time In 09/25/23 08:10:00 09/25/23 08:10:00 09/25/23 08:10:00 Time Out 09/25/23 08:38:00 09/25/23 08:41:00 09/25/23 08:41:00 Procedure Carpal Tunnel Carpal Tunnel Carpal Tunnel Release(Left) Release(Left) Release(Left) Last Modified By: Allyson Alfred RN, Lauren L RN Wheeler, Lauren L RN 09/25/23 08:43:33 09/25/23 08:43:21 09/25/23 08:43:21 Entry 4 Entry 5 Case Attendee Da FLOOR WORKER TRANSFER BAYDayna FLOOR WORKER TRANSFER BAY BloemerMila FLOOR WORKER TRANSFER BAY CSFA Role Performed Rail Switchman Scrub Relief Time In 09/25/23 08:10:00 09/25/23 [...] Lauren L RN, Angela Abrams MD, Da FLOOR WORKER TRANSFER BAY, Dayna FLOOR WORKER TRANSFER BAY CSFA, Mila Wyatt FLOOR WORKER TRANSFER BAY Last Modified By: Allyson Alfred RN 09/25/23 [...] Yes Press Points (more content not included)... [facility] MAGR Postoperative Recordon 09-25-2023 MAGR Postoperative Record MAGR Phase II Record Summary Primary Physician: Arianna Miller DO Finalized Date/Time: 09/25/23 10:39:28 Pt. Name: CARISSA SANTOS/Sex: 1980 FEMALE Med Rec #: [id number] Physician: Arianna Miller DO Financial #: [id number] Pt. Type: D Room/Bed: / Admit/Disch: 09/25/23 [...] Signed By: Jennyfer Gresham RN 09/25/23 10:39 [facility] 09-25-2023 MAGR Preoperative Record MAGR Pre-Op Record Summary Primary Physician: Arianna Miller DO Finalized Date/Time: 09/25/23 08:48:38 Pt. Name: CARISSA SANTOS/Sex: 1980 FEMALE Med Rec #: [id number] Physician: Arianna Miller DO Financial #: [id number] Pt. Type: D Room/Bed: / Admit/Disch: 09/25/23 [...] Signed By: Allyson Alfred RN 09/25/23 08:48 [facility] Patient Handouton 09-25-[address] MILLER'S POST OPERATIVE CARPAL TUNNEL INSTRUCTIONS: SURGEON'S WRITTEN INSTRUCTIONS: 1. Keep your hand elevated above your elbow for the first 24 hours after surgery. 2. Wiggle your fingers frequently while awake. 3. DO NOT lift heavy objects or slip cover estimator forcefully with your hand. 4. Change your [...] or concerns, please call the office at [phone]. 7. Follow up as scheduled. [facility] Test Serum 1 Preg Serum Internal Control [place] [facility] Comment on above: Performed By: #### 3 [id number] ####[facility] (DEFAULT)[address] [place] [address] Test Serum Qual Negative [facility] Comment on above: Performed By: #### 3 [id number] ####[facility] (DEFAULT)[address] [place] [address] Progress Note - Nurseon 09-04 Progress Note - Nurse Spoke with pt and informed her to be here at 0630 and NPO after MN, she verbalizes understanding. [Electronically Signed on: 09/22/2023 09:47 EST] ____ Kalyani Ortiz RN [Verified on: 09/22/2023 09:47 EST] ____ Kalyani Ortiz RN [facility] Progress Note - Nurseon 09-04 Progress Note - Nurse Dr Lares reviews pt chart and no new orders were received. [Electronically Signed on: 09/15/2023 11:46 EST] ____ Kalyani Ortiz RN [Verified on: 09/15/2023 11:46 EST] ____ Kalyani Ortiz RN [facility] Progress Note - Nurseon 09-04 Progress Note - Nurse PAT review done per Dr. Lares, order received. [Electronically Signed on: 09/14/2023 14:38 EST] ____ Katelyn Moon RN [Verified on: 09/14/2023 14:38 EST] ____ Katelyn Moon RN Normal [facility] .Auto Diff 1on 09-13-2023 Auto Wallace % 4 % Normal 1-12 [facility] Comment on above: Performed By: #### 7 [id number], [id number], [id number] ####[facility] (DEFAULT)[address] [place] [address] Baso Abs# 0.0 x10 Normal 0.0-0.2 [facility] Comment on above: Performed By: #### 7 732250, [id number], [id number] ####[facility] (DEFAULT)[address] [place] [address] Basophils/100 WBC (Bld) 0.8 % Normal 0.2-2.0 [facility] Comment on above: Performed By: #### 7 748411, [id number], [id number] ####[facility] (DEFAULT)[address] [place] [address] Eos Abs# 0.1 x10 Normal 0.0-0.4 [facility] Comment on above: Performed By: #### 7 612982, [id number], [id number] ####[facility] (DEFAULT)[address] [place] [address] Eosinophils/100 WBC (Bld) 1.2 % Normal 0.9-4.0 [facility] Comment on above: Performed By: #### 7 713303, [id number], [id number] ####[facility] (DEFAULT)[address] [place] [address] Lymph Abs# 2.0 x10 Normal 1.3-2.9 [facility] Comment on above: Performed By: #### 7 153350, [id number], [id number] ####[facility] (DEFAULT)[address] [place] [address] Lymphocytes/100 WBC (Bld) 40 % Normal 14-48 [facility] Comment on above: Performed By: #### 7 413933, [id number], [id number] ####[facility] (DEFAULT)[address] [place] [address] Wallace Abs# 0.2 x10 Normal 0.0-0.8 [facility] Comment on above: Performed By: #### 7 268812, [id number], [id number] ####[facility] (DEFAULT)[address] [place] [address]34 Neut Abs# 2.7 x10 Normal 1.5-9.2 [facility] Comment on above: Performed By: #### 7 950092, [id number], [id number] ####[facility] (DEFAULT)[address] [place] [address] Neutrophils/100 WBC (Bld) 54 % Normal 44-88 [facility] Comment on above: Performed By: #### 7 024191, [id number], [id number] ####[facility] (DEFAULT)[address] [place] [address] BMP Standardon 09-13-2023 eGFR Non AA >60 Invalid Interpretation Code [facility] Comment on above: Performed By: #### 7 309284, [id number], [id number] ####[facility] (DEFAULT)[address] [place] [address] eGFR AA >60 Invalid Interpretation Code [facility] Comment on above: Performed By: #### 7 446375, [id number], [id number] ####[facility] (DEFAULT)[address] [place] [address]144 Anion gap [Moles/Vol] 10.4 mmol/L Normal 5.0-19.0 [facility] Comment on above: Performed By: #### 7 611261, [id number], [id number] ####[facility] (DEFAULT)[address] [place] [address]644 Calcium [Mass/Vol] 8.9 mg/dL Normal 8.9-10.3 [facility] Comment on above: Performed By: #### 7 042469, [id number], [id number] ####[facility] (DEFAULT)[address] [place] [address] 44048 Chloride [Moles/Vol] 102 mmol/L Normal 101-111 [facility] Comment on above: Performed By: #### 7 808910, [id number], [id number] ####[facility] (DEFAULT)[address] [place] [address] 34987 CO2 [Moles/Vol] 27 mmol/L Normal 21-32 [facility] Comment on above: Performed By: #### 7 397093, [id number], [id number] ####[facility] (DEFAULT)[address] [place] [address] 42738 Creatinine [Mass/Vol] 0.76 mg/dL Normal 0.60-1.30 [facility] Comment on above: Performed By: #### 7 365951, [id number], [id number] ####[facility] (DEFAULT)[address] [place] [address] 47257 Glucose [Mass/Vol] 276.0 mg/dL High 74.0-118.0 [facility] Comment on above: Performed By: #### 7 329964, [id number], [id number] ####[facility] (DEFAULT)[address] [place] [address] 27471 Osmolality 282 mOsm/L Invalid Interpretation Code [facility] Comment on above: Performed By: #### 7 791092, [id number], [id number] ####[facility] (DEFAULT)[address] [place] [address]169 Potassium [Moles/Vol] 4.4 mmol/L Normal 3.6-5.1 [facility] Comment on above: Performed By: #### 7 138761, [id number], 59240741 ####[facility] (DEFAULT)[address] [place] [address] 89848 Sodium [Moles/Vol] 135.0 mmol/L Low 136.0-144.0 [facility] Comment on above: Performed By: #### 7 477603, [id number], [id number] ####[facility] (DEFAULT)[address] [place] [address]24 Urea nitrogen [Mass/Vol] 18 mg/dL Normal 8-26 [facility] Comment on above: Performed By: #### 7 906023, [id number], 22428071 ####[facility] (DEFAULT)[address] [place] [address] Urea nitrogen/Creatinine [Mass ratio] 23.6 mg/mg High 4.6-16.2 [facility] Comment on above: Performed By: #### 7 877319, [id number], [id number] ####[facility] (DEFAULT)[address] [place] [address] CBC w/ Auto Diffon 4 Erythrocyte distribution width (RBC) [Ratio] 13.5 % Normal 11.5-15.0 [facility] Comment on above: Performed By: #### 7 856856, [id number], 89444054 #### [facility] (DEFAULT) [address] [place] [address] Hematocrit (Bld) [Volume fraction] 42.9 % High 33.7-40.4 [facility] Comment on above: Performed By: #### 7 981086, [id number], [id number] #### [facility] (DEFAULT) [address] [place] [address] Hemoglobin (Bld) [Mass/Vol] 14.1 g/dL Normal 11.3-15.9 [facility] Comment on above: Performed By: #### 7 134348, [id number], [id number] #### [facility] (DEFAULT) [address] [place] [address] Man Diff? Auto Invalid Interpretation Code [facility] Comment on above: Performed By: #### 7 184720, [id number], [id number] #### [facility] (DEFAULT) [address] [place] [address] 51233 MCH (RBC) [Entitic mass] 28 pg Normal 24-34 [facility] Comment on above: Performed By: #### 7 329845, [id number], [id number] #### [facility] (DEFAULT) [address] [place] [address] 81176 MCHC (RBC) [Mass/Vol] 33 g/dL Normal 26-37 [facility] Comment on above: Performed By: #### 7 437475, [id number], 49756071 #### [facility] (DEFAULT) [address] [place] [address] 27868 MCV (RBC) [Entitic vol] 87 fL Normal 81-100 [facility] Comment on above: Performed By: #### 7 376660, [id number], [id number] #### [facility] (DEFAULT) [address] [place] [address]229 Platelet 206 x10 Normal 138-427 [facility] Comment on above: Performed By: #### 7 241438, [id number], 04571003 #### [facility] (DEFAULT) [address] [place] [address] 63524 Platelet mean volume (Bld) [Entitic vol] 6.9 fL Normal 6.3-10.2 [facility] Comment on above: Performed By: #### 7 806545, [id number], [id number] #### [facility] (DEFAULT) [address] [place] [address] 50537 RBC 4.95 x10 Normal 3.70-5.30 [facility] Comment on above: Performed By: #### 7 726251, [id number], [id number] #### [facility] (DEFAULT) [address] [place] [address] 69437 WBC 5.1 x10 Normal 3.5-10.5 [facility] Comment on above: Performed By: #### 7 576507, [id number], [id number] #### [facility] (DEFAULT) [address] [place] [address] 80695 PREG HCG QUALon 01-10-2023 , QUAL Negative Normal NEGATIVE [facility] Comment on above: Performed By: #### P REG #### [facility] [address] [place] [address] Dr. Dipika Rapp US PELVIS AND TRANSVAGon [...] by: HARVINDER DELEON Date: 2022-12-26 14:02 Normal [facility] Office Visiton 12-07-2022 Follow-up visit [id number] Carissa Santos 1980 F Date Provider Department Center 12/07/2022 373-[facility]BSON PAZ ORTHO MPORTHO Family History Problem Relation Age of Onset Diabetes Mother Leukemia Father Family Status - Relation Status Age at Mother Father Level of Service:13410 [place] POSTOP FOLLOW UP VISIT RELATED TO ORIGINAL PX (GC) Reason for Visit and Comments: Post-op [483] Normal [facility] HPon 11-21-2022 HP H&P reviewed. The patient was examined and there are no changes to the H&P. Normal [facility] HP H&P reviewed. The patient was examined and there are no changes to the H&P. Normal [facility] NURSNOTEon 11-21-2022 NURSNOTE Patients operative hand warm to touch, and sorin at the bedside to evaluate. Okay for pt to go home, Good capillary refill, soft no swelling noted. Normal [facility] OPNOTEon 11-21-2022 OPNOTE ORTHOPAEDIC SURGERY OPERATIVE REPORT Date of Surgery: 11/21/2022 Surgeon: Robson Paz MD Sizing End Bander: Sorin Farooq MD Preoperative Diagnosis: Left cubital [...] of the procedure(s). Robson Paz MD Normal [facility] POCT GLUCOSE METER UNSOLICIT ED RESULTSon 11-21-2022 Glucose [Mass/Vol] 74 mg/dL Normal 70-105 [facility] Comment on above: Result Comment: [email or web address] [email or web address] Performed By: #### L [id number] #### [facility] ([facility]) [address] [place] [address] Glucose [Mass/Vol] 53 mg/dL Low 70-105 [facility] Comment on above: Result Comment: ksmi [email or web address] Performed By: #### L [id number] ####[facility] ([facility])[address] [place] [address] Glucose [Mass/Vol] 73 mg/dL Normal 70-105 [facility] Comment on above: Result Comment: ksmi [email or web address] Performed By: #### L [id number] ####[facility] ([facility])[address] [place] [address] Glucose [Mass/Vol] 44 mg/dL Invalid Interpretation Code 70-105 [facility] Comment on above: Result Comment: ksmi [email or web address] Critical Value Noted Performed By: #### L [id number] ####[facility] (BEAKER)[address] [place] [address] Glucose [Mass/Vol] 53 mg/dL Low 70-105 [facility] Comment on above: Result Comment: [facility] er4 Performed By: #### L [id number] ####[facility] (BEAKER)[address] [place] [address] HPon 11-04-2022 HP -------- Attestation signed by [...] Santos is a 42 y.o. year old jliw-thak-wsqkqwln female presenting for evaluation of left hand [...] Past Medical History: Diagnosis Date Diabetes mellitus ([facility]) Objective General: Body mass index [...] finger: normal A1 carina and AROM Strength: slip cover estimator 5/5, thumb 5/5, interossei 5/5 Sensation: intact [...] surgical intervention - Instructed patient that our certified surgical technologist reach out regarding future surgical date - Surgery will be performed under regional anesthesia -Return to clinic for surgical intervention -Call the orthopedic office any questions or concerns Michael Ward MD Orthopedic Surgery Resident Physician Pager: [phone] 11/04/22 12:35 PM By using the attestations [...] an additional personal documentation from me. Normal [facility] Office Visiton 11-04-2022 Follow-up visit [id number] Carissa Santos 1980 F Date Provider Department [place] 11/04/2022 Juhi-ONEYDA PAZ ORTHO MPORTHO Family History Problem Relation Age of Onset Diabetes Mother Leukemia Father Family Status - Relation Status Age at Mother Father Level of Service:05227 [place] OFFICE/OUTPATIENT ESTABLISHED LOW MDM 20-29 MIN Reason for Visit and Comments: Pain [136] Normal [facility] FSHon 09-15-2022 FSH 39.6 mIU/mL Normal [facility] Comment on above: Result Comment: Adul t Female: Follicular phase 3.5 - 12.5 Ovulation phase 4.7 - 21.5 Luteal phase 1.7 - 7.7 Postmenopausal 25.8 - 134.8 Performed By: #### L BCFSH #### [facility] [address] [place], [place] [address] Dr. Dipika Rapp LUTEINIZING HORMONE (LH)on 0 09-15-2022 LH 32.9 mIU/mL Normal [facility] Comment on above: Result Comment: Adul t Female: Follicular phase 2.4 - 12.6 Ovulation phase 14.0 - 95.6 Luteal phase 1.0 - 11.4 Postmenopausal 7.7 - 58.5 Performed By: #### L BCLH #### [facility] [address] [place], [place] [address] Dr. Dipika Rapp PROLACTINon 09-15-2022 Prolactin 4.6 ng/mL Critically low 4.8-23.3 [facility] Comment on above: Performed By: #### P ROLAC ####[facility] [address] [place] [address]Dr. Dipika Rapp CBC AUTO DIFFon 09-14-2022 BASO # 0.0 103/ul Normal 0.0-0.1 [facility] Comment on above: Performed By: #### C BC ####[facility] [address] [place], [place] [address]Dr. Dipika Dionte Basophils/100 WBC (Bld) 0.4 % Normal 0.2-2.0 [facility] Comment on above: Performed By: #### C BC ####[facility] [address] [place], [place] [address]Dr. Dipika Dionte EO # 0.1 103/ul Normal 0.0-0.7 [facility] Comment on above: Performed By: #### C BC ####[facility] [address] [place], [place] [address]Dr. Vanessazackary Rapp Eosinophils/100 WBC (Bld) 0.8 % Critically low 0.9-7.0 [facility] Comment on above: Performed By: #### C BC ####[facility] [address] [place], [place] [address]Dr. Dipika Rapp Erythrocyte distribution width (RBC) [Ratio] 12.5 % Normal 11.0-15.0 [facility] Comment on above: Performed By: #### C BC ####[facility] [address] [place], [place] [address]Dr. Dipika Rapp Hematocrit (Bld) [Volume fraction] 46.2 % Normal 36.0-48.0 [facility] Comment on above: Performed By: #### C BC ####[facility] [address] [place], [place] [address]Dr. Dipika Rapp Hemoglobin (Bld) [Mass/Vol] 14.9 g/dL Normal 12.0-16.0 [facility] Comment on above: Performed By: #### C BC ####[facility] [address] [place], [place] [address]Dr. Dipika Rapp IG # 0.04 10e3/ul Critically high 0.00-0.03 [facility] Comment on above: Performed By: #### C BC ####[facility] [address] [place] [id number]. Dipika Rapp IG % 0.5 % Normal 0.0-0.5 [facility] Comment on above: Performed By: #### C BC ####[facility] [address] [place] [id number]. Dipika Rapp LYMPH # 2.8 103/ul Normal 1.2-3.8 [facility] Comment on above: Performed By: #### C BC ####[facility] [address] [place] [id number]. Dipika Rapp Lymphocytes/100 WBC (Bld) 34.7 % Normal 20.5-60.0 [facility] Comment on above: Performed By: #### C BC ####[facility] [address] [place] [address]Dr. Vanessazackary Rapp MANUAL DIFF REQ NO Normal [facility] Comment on above: Performed By: #### C BC ####[facility] [address] [place] [id number]. Dipika Rapp MCH (RBC) [Entitic mass] 28.3 pg Normal 26.7-34.0 [facility] Comment on above: Performed By: #### C BC ####[facility] [address] [place] [id number]. Dipika Rapp MCHC (RBC) [Mass/Vol] 32.3 g/dL Normal 29.9-35.2 [facility] Comment on above: Performed By: #### C BC ####[facility] [address] [place], [place] [address]Dr. Dipika Rapp MCV (RBC) [Entitic vol] 87.7 fL Normal 81.0-99.0 [facility] Comment on above: Performed By: #### C BC ####[facility] [address] [place] [id number]. Dipika Dionte MONO # 0.4 103/ul Normal 0.3-0.8 [facility] Comment on above: Performed By: #### C BC ####[facility] [address] [place] [id number]. Dipika Rapp Monocytes/100 WBC (Bld) 5.0 % Normal 1.7-12.0 [facility] Comment on above: Performed By: #### C BC ####[facility] [address] [place] [id number]. Dipika Rapp NEUT # 4.7 103/ul Normal 1.4-6.5 [facility] Comment on above: Performed By: #### C BC ####[facility] [address] [place] [id number]. Dipika Rapp Neutrophils/100 WBC (Bld) 58.6 % Normal 43.0-75.0 [facility] Comment on above: Performed By: #### C BC ####[facility] [address] [place] [id number]. Dipika Rapp Platelet mean volume (Bld) [Entitic vol] 9.1 fL Critically low 9.5-13.5 [facility] Comment on above: Performed By: #### C BC ####[facility] [address] [place] [id number]. Dipika Rapp PLT 194 103/ul Normal 150-450 [facility] Comment on above: Performed By: #### C BC ####[facility] [address] [place] [id number]. Dipika Rapp RBC 5.27 106/ul Normal 4.20-5.40 [facility] Comment on above: Performed By: #### C BC ####[facility] [address] [place], [place] [address]Dr. Dipika Rapp WBC 8.0 103/ul Normal 4.0-11.0 [facility] Comment on above: Performed By: #### C BC ####[facility] [address] [place] [id number]. Dipika Rapp FREE T4on 09-14-2022 Free T4 [Mass/Vol] 1.04 ng/dL Normal 0.76-1.46 [facility] Comment on above: Performed By: #### F T4 #### [facility] [address] [place] [address] [address] Dipika Rapp TSHon 09-14-2022 TSH 1.420 uIU/mL Normal 0.358-3.740 [facility] Comment on above: Performed By: #### T SH #### [facility] [address] [place] [address] Dr. Dipika Rapp PAP ACOG PANEL 2: 30 to 65on 07-25-2022 . . Normal [facility] Comment on above: Result Comment: Perf ormed at: WB Performed By: #### [id number] #### [facility] [address] [place] [address] Dr. Dipika Rapp Age Gdln ACOG Testing 30-65 [facility] Comment on above: Performed By: #### [id number] #### [facility] [address] [place] [address] Dr. Dipika Rapp DIAGNOSIS: Comment Normal [facility] Comment on above: Result Comment: NEGA TIVE FOR INTRAEPITHELIAL LESION OR MALIGNANCY. THIS SPECIMEN WAS RESCREENED PART OF OUR COMMUNICATIONS SUPERVISOR PROGRAM. Performed at: WB Performed By: #### [id number] #### [facility] [address] [place] [address] Dr. Dipika Rapp HPV Aptima Negative Normal Negative [facility] Comment on above: Result Comment: This nucleic acid amplification test detects fourteen high-risk HPV types (16,18,31,33,35,39,45,51,52,56,58,59,66,68) without differentiation. Performed at: =G Performed By: #### [id number] #### [facility] [address] [place] [address] Dr. Dipika Rapp HPV Genotype Reflex Comment Normal [facility] Comment on above: Result Comment: Crit eria not met, HPV Genotype not performed. Performed at: WB Performed By: #### [id number] #### [facility] [address] [place] [address] Dr. Dipika Rapp Methodology: Comment [facility] Comment on above: Result Comment: This liquid based ThinPrep(R) pap test was screened with the use of an image guided system. Performed at: WB Performed By: #### [id number] #### [facility] [address] [place] [address] Dr. Dipika Rapp Note: Comment Normal [facility] Comment on above: Result Comment: The Pap smear is a screening test designed to aid in the detection of premalignant and malignant conditions of the uterine cervix. It is not a diagnostic procedure and should not be used as the sole means of detecting cervical cancer. Both false-positive and false-negative reports do occur. . Performed at: WB Performed By: #### [id number] #### [facility] [address] [place] [address] Dr. Dipika Rapp Performed by: Comment Normal The [facility] Comment on above: Result Comment: Luna Zelaya, Fiber Optics Technician (ASCP) Performed at: WB Performed By: #### [id number] #### [facility] [address] [place] [address] Dr. Dipika Rapp QC reviewed by: Comment Normal [facility] Comment on above: Result Comment: Светлана Burger, Supervisory Fiber Optics Technician (ASCP) Performed at: WB Performed By: #### [id number] #### [facility] [address] [place] [address] Dr. Dipika Rapp Specimen adequacy: Comment Normal [facility] Comment on above: Result Comment: Sati sfactory for evaluation. Endocervical and/or squamous metaplastic cells (endocervical component) are present. Performed at: WB Performed By: #### [id number] #### [facility] [address] [place] [address] Dr. Dipika Rapp MG MAMM SCREEN 3D DINAH CADon 06-22-2022 MG MAMM SCREEN 3D DINAH CAD Patient: CARISSA SANTOS Exam Date: 06/22/2022 : 1980 Gender:F Ordering : DR FELIZ BENZ . Admission #: [id number] Family : Order #: [id number] CLICK HERE TO VIEW EXAM RADIOLOGY REPORT [...] Treatments None Family Cancers None LOCATION: [facility] BREAST COMPOSITION: Scattered areas fibroglandular density. [...] M.D. on 06/22/2022 at 15:52 Normal [facility] GLYCOHEMOGLOBIN A1Con 2021 ADA RECOMMENDATION SEE BELOW Normal [facility] Comment on above: Result Comment: ADA RECOMMENDED LIMIT 4.0 - 6.0 ADA THERAPEUTIC TARGET < 7.0 ACTION SUGGESTED > 7.0 Performed By: #### A 1C #### [facility] [address] [address] [address] Dipika Rapp Glucose [Mass/Vol] 163 mg/dL Normal [facility] Comment on above: Performed By: #### A 1C #### [facility] [address] [address] [address] Dipika Rapp HbA1c (Bld) [Mass fraction] 7.3 % Critically high 4.5-6.2 [facility] Comment on above: Performed By: #### A 1C #### [facility] [address] [address] [address] Dipika Rapp CBC AUTO DIFFon 01-23-2022 BASO # 0.0 103/ul Normal 0.0-0.1 [facility] Comment on above: Performed By: #### C BC ####[facility] [address] [place], [place] [address]HjDr. Dipika Rapp Basophils/100 WBC (Bld) 0.3 % Normal 0.2-2.0 [facility] Comment on above: Performed By: #### C BC ####[facility] [address] [place], [place] [address]Dr. Dipika Rapp EO # 0.2 103/ul Normal 0.0-0.7 [facility] Comment on above: Performed By: #### C BC ####[facility] [address] [place], [place] [address]Dr. Dipika Rapp Eosinophils/100 WBC (Bld) 1.7 % Normal 0.9-7.0 [facility] Comment on above: Performed By: #### C BC ####[facility] [address] [place], [place] [address]Dr. Dipika Rapp Erythrocyte distribution width (RBC) [Ratio] 12.0 % Normal 11.0-15.0 [facility] Comment on above: Performed By: #### C BC ####[facility] [address] [place], [place] [address]Dr. Dipika Rapp Hematocrit (Bld) [Volume fraction] 43.0 % Normal 36.0-48.0 [facility] Comment on above: Performed By: #### C BC ####[facility] [address] [place], [place] [address]Dr. Dipika Rapp Hemoglobin (Bld) [Mass/Vol] 13.6 g/dL Normal 12.0-16.0 [facility] Comment on above: Performed By: #### C BC ####[facility] [address] [place], [place] [address]Dr. Dipika Rpap IG # 0.02 10e3/ul Normal 0.00-0.03 [facility] Comment on above: Performed By: #### C BC ####[facility] [address] [place], [place] [address]Dr. Dipika Rapp IG % 0.2 % Normal 0.0-0.5 [facility] Comment on above: Performed By: #### C BC ####[facility] [address] [place], [place] [address]DrBrian Rapp LYMPH # 3.5 103/ul Normal 1.2-3.8 [facility] Comment on above: Performed By: #### C BC ####[facility] [address] [address]DrBrian Rapp Lymphocytes/100 WBC (Bld) 39.2 % Normal 20.5-60.0 [facility] Comment on above: Performed By: #### C BC ####[facility] [address] [place], [place] [address]DrBrian Rapp MANUAL DIFF REQ NO Normal [facility] Comment on above: Performed By: #### C BC ####[facility] [address] [place], [place] [address]DrBrian Rapp MCH (RBC) [Entitic mass] 28.6 pg Normal 26.7-34.0 [facility] Comment on above: Performed By: #### C BC ####[facility] [address] [place], [place] [address]Dr. Dipika Rapp MCHC (RBC) [Mass/Vol] 31.6 g/dL Normal 29.9-35.2 [facility] Comment on above: Performed By: #### C BC ####[facility] [address] [place], [place] [address]DrBrian Rapp MCV (RBC) [Entitic vol] 90.3 fL Normal 81.0-99.0 [facility] Comment on above: Performed By: #### C BC ####[facility] [address] [place], [place] [address]DrBrian Rapp MONO # 0.5 103/ul Normal 0.3-0.8 [facility] Comment on above: Performed By: #### C BC ####[facility] [address] [place], [place] [address]DrBrian Rapp Monocytes/100 WBC (Bld) 5.8 % Normal 1.7-12.0 [facility] Comment on above: Performed By: #### C BC ####[facility] [address] [place], [place] [address]DrBrian Rapp NEUT # 4.7 103/ul Normal 1.4-6.5 [facility] Comment on above: Performed By: #### C BC ####[facility] [address] [address]Dr. Dipika Rapp Neutrophils/100 WBC (Bld) 52.8 % Normal 43.0-75.0 [facility] Comment on above: Performed By: #### C BC ####[facility] [address] [address]Dr. Dipika Rapp Platelet mean volume (Bld) [Entitic vol] 9.3 fL Critically low 9.5-13.5 [facility] Comment on above: Performed By: #### C BC ####[facility] [address] [address]Dr. Dipika Rapp PLT 219 103/ul Normal 150-450 [facility] Comment on above: Performed By: #### C BC ####[facility] [address] [address]Dr. Dipika Rpap RBC 4.76 106/ul Normal 4.20-5.40 [facility] Comment on above: Performed By: #### C BC ####[facility] [address] [address]Dr. Dipika Rapp WBC 8.8 103/ul Normal 4.0-11.0 [facility] Comment on above: Performed By: #### C BC ####[facility] [address] [id number] Rapp POINT OF CARE GLUCOSEon 01-03 Glucose [Mass/Vol] 51 mg/dL Critically low 74-106 [facility] Comment on above: Performed By: #### P OCGLUC #### [facility] [address] [address] [address] Dipika Rapp PROF 14(COMP METB)on Albumin [Mass/Vol] 3.1 g/dL Critically low 3.4-5.0 [facility] Comment on above: Performed By: #### C MP #### [facility] [address] [address] [address] Dipika Rapp Albumin/Globulin [Mass ratio] 0.8 {ratio} Normal [facility] Comment on above: Performed By: #### C MP #### [facility] [address] [place] [address] Dr. Dipika Rapp ALP [Catalytic activity/Vol] 86 U/L Normal 46-116 [facility] Comment on above: Performed By: #### C MP #### [facility] [address] [address] [address] Dipika Rapp ALT [Catalytic activity/Vol] 39 U/L Normal 14-59 [facility] Comment on above: Performed By: #### C MP #### [facility] [address] [place] [address] Dr. Dipika Rapp Anion gap [Moles/Vol] 10.8 mmol/L Normal [facility] Comment on above: Performed By: #### C MP #### [facility] [address] [place] [address] Dr. Dipika Rapp AST [Catalytic activity/Vol] 11 U/L Critically low 15-37 [facility] Comment on above: Performed By: #### C MP #### [facility] [address] [place] [address] Dr. Dipika Rapp Bilirubin [Mass/Vol] 0.1 mg/dL Critically low 0.2-1.0 [facility] Comment on above: Performed By: #### C MP #### [facility] [address] [place] [address] Dr. Dipika Rapp Calcium [Mass/Vol] 9.0 mg/dL Normal 8.5-10.1 [facility] Comment on above: Performed By: #### C MP #### [facility] [address] [place] [address] Dr. Dipika Rapp Chloride [Moles/Vol] 104 mmol/L Normal 98-107 [facility] Comment on above: Performed By: #### C MP #### [facility] [address] [place] [address] Dr. Dipika Rapp CO2 [Moles/Vol] 29.4 mmol/L Normal 21.0-32.0 [facility] Comment on above: Performed By: #### C MP #### [facility] [address] [place] [address] Dr. Dipika Rapp Creatinine [Mass/Vol] 0.67 mg/dL Normal 0.55-1.02 [facility] Comment on above: Performed By: #### C MP #### [facility] [address] [place] [address] Dr. Dipika Rapp EGFR-AF [place]ER >60 Normal >=60 [facility] Comment on above: Performed By: #### C MP #### [facility] [address] [address] [address] Dipika Rapp EGFR-NON AF [place]ER >60 Normal >=60 [facility] Comment on above: Performed By: #### C MP #### [facility] [address] [place] [address] Dr. Dipika Rapp Globulin (S) [Mass/Vol] 3.9 g/dL Normal [facility] Comment on above: Performed By: #### C MP #### [facility] [address] [place] [address] Dr. Dipika Rapp Glucose [Mass/Vol] 142 mg/dL Critically high 74-106 [facility] Comment on above: Performed By: #### C MP #### [facility] [address] [place] [address] Dr. Dipika Rapp Potassium [Moles/Vol] 4.2 mmol/L Normal 3.5-5.1 [facility] Comment on above: Performed By: #### C MP #### [facility] [address] [place] [address] Dr. Dipika Rapp Protein [Mass/Vol] 7.0 g/dL Normal 6.4-8.2 [facility] Comment on above: Performed By: #### C MP #### [facility] [address] [place] [address] Dr. Dipika Rapp Sodium [Moles/Vol] 140 mmol/L Normal 136-145 [facility] Comment on above: Performed By: #### C MP #### [facility] [address] [place], [place] [address] Dr. Dipika Rapp Urea nitrogen [Mass/Vol] 22.0 mg/dL Critically high 7.0-18.0 [facility] Comment on above: Performed By: #### C MP #### [facility] [address] [place], [place] [address] Dr. Dipika Rapp Urea nitrogen/Creatinine [Mass ratio] 32.8 mg/mg Normal [facility] Comment on above: Performed By: #### C MP #### [facility] [address] [place], [place] [address] Dr. Dipika Rapp Cult,Aerobe/Anaerobeon 10-06 Cult,Aerobe/Anaerobe Specimen Description .ULCER RT ARM Special Requests NOT REPORTED Direct Exam FEW NEUTROPHILS NO BACTERIA SEEN Culture NO GROWTH 5 DAYS Report Status FINAL 10/06/2021 Normal [facility] Comment on above: Performed By: #### U A, FRANKO #### [facility] [address] [place], [place] [id number] Receiver Setter: Brandan Ugalde MD Smear to Pathologiston 10-04 Smear to Pathologist SEE REPORT Normal [facility] Comment on above: Result Comment: REVIEWING PATHOLOGIST: ELECTRONICALLY SIGNED. HORACIO VILA M.D. Performed By: #### P TT, FIB, PT, LYTE, DBILI, TBIL, RETCT, CBC, LD, HAPT, PATH ####[facility] [address] [place], [place] [id number] Lab Director: Brandan Ugalde MD Basic Metabolic Panelon 09-06 Anion gap [Moles/Vol] 14 mmol/L 9 - 17 mmol/L [facility] Calcium [Mass/Vol] 8.3 mg/dL Low 8.6 - 10.4 mg/dL [facility] Chloride [Moles/Vol] 111 mmol/L High 98 - 107 mmol/L [facility] CO2 [Moles/Vol] 19 mmol/L Low 20 - 31 mmol/L [facility] Creatinine [Mass/Vol] 1.31 mg/dL High 0.50 - 0.90 mg/dL [facility] GFR 54 mL/min Low >60 [employer] GFR Non- 45 mL/min Low >60 [facility] GFR/1.73 sq M.predicted MDRD (S/P/Bld) [Vol rate/Area] [facility] Comment on above: Average GFR for 40-4 9 years old: 99 mL/min/1.73sq m Chronic Kidney Disease: <60 mL/min/1.73sq m Kidney failure: <15 mL/min/1.73sq m eGFR calculated using average adult body mass. Additional eGFR calculator available at: http://www.Jimmy Fairly/Medaxion_crcl_2012.htm GFR/1.73 sq M.predicted MDRD (S/P/Bld) [Vol rate/Area] NOT REPORTED [facility] Glucose [Mass/Vol] 105 mg/dL High 70 - 99 mg/dL [facility] Interpretation and review of laboratory results Abnormal [facility] Potassium [Moles/Vol] 3.7 mmol/L 3.7 - 5.3 mmol/L [facility] Sodium [Moles/Vol] 144 mmol/L 135 - 144 mmol/L [facility] Urea nitrogen (BldV) [Mass/Vol] 19 mg/dL 6 - 20 mg/dL [facility] Urea nitrogen/Creatinine (Bld) [Mass ratio] NOT REPORTED [facility] Basic Metabolic Profon 10-03 (cont.) Normal [facility] Comment on above: Result Comment: Aver age GFR for 40-49 years old: 99 mL/min/1.73sq m Chronic Kidney Disease: <60 mL/min/1.73sq m Kidney failure: <15 mL/min/1.73sq m eGFR calculated using average adult body mass. Additional eGFR calculator available at: http://www.Jimmy Fairly/Medaxion_crcl_2012.htm Performed By: #### PRATIBHA Claudio #### [employer] [address] [place] [address] Receiver Setter: Brandan Ugalde MD Anion gap [Moles/Vol] 14 mmol/L Normal - [facility] Comment on above: Performed By: #### U A, UMICAO #### [facility] [address] [place] [address] Receiver Setter: Brandan Ugalde MD Calcium [Mass/Vol] 8.3 mg/dL Low 8.6-10.4 [facility] Comment on above: Performed By: #### U A, UMICAO #### [facility] [address] [place] [address] Receiver Setter: Brandan Ugalde MD Chloride [Moles/Vol] 111 mmol/L High 98-107 [facility] Comment on above: Performed By: #### U A, UMICAO #### [facility] [address] [place] [address] Receiver Setter: Brandan Ugalde MD CO2 [Moles/Vol] 19 mmol/L Low 20-31 [facility] Comment on above: Performed By: #### U A, UMICAO #### [facility] [address] [place] [address] Receiver Setter: Brandan Ugalde MD Creatinine [Mass/Vol] 1.31 mg/dL High 0.50-0.90 [facility] Comment on above: Performed By: #### U A UMICAO #### [facility] [address] [place] [address] Receiver Setter: Brandan Ugalde MD GFR, Amer 54 mL/min Low >60 [facility] Comment on above: Performed By: #### U A, UMICAO #### [facility] [address] [place] [address] Receiver Setter: Brandan Ugalde MD GFR,non Amer 45 mL/min Low >60 [facility] Comment on above: Performed By: #### U A, UMICAO #### [facility] [address] [place] [address] Receiver Setter: Brandan Ugalde MD Glucose [Mass/Vol] 105 mg/dL High 70-99 [facility] Comment on above: Performed By: #### U PRATIBHA Phipps #### [facility] [address] [place] [address] Receiver Setter: Brandan Ugalde MD Potassium [Moles/Vol] 3.7 mmol/L Normal 3.7-5.3 [facility] Comment on above: Performed By: #### U PRATIBHA Phipps #### [facility] [address] [place] [address] Receiver Setter: Brandan Ugalde MD Sodium [Moles/Vol] 144 mmol/L Normal 135-144 [facility] Comment on above: Performed By: #### PRATIBHA Claudio #### [facility] [employer] [address] [place] [address] Receiver Setter: Brandan Ugalde MD Urea nitrogen [Mass/Vol] 19 mg/dL Normal 6-20 [facility] Comment on above: Performed By: #### PRATIBHA Claudio #### [facility] [employer] [address] [place] [address] Receiver Setter: Brandan Ugalde MD BUN/CRE Ratio NOT REPORTED Normal 9-20 [facility] Comment on above: Performed By: #### U PRATIBHA Phipps #### [facility] [address] [place] [address] Receiver Setter: Brandan Ugalde MD Staging: NOT REPORTED Normal [facility] Comment on above: Performed By: #### U PRATIBHA Phipps #### [employer] [address] [place] [address] Receiver Setter: Brandan Ugalde MD CBC auto differentialon -3 Absolute Eos # 0.22 [facility] Absolute Immature Granulocyte 0.00 [facility] Absolute Lymph # 2.04 [facility] Absolute Wallace # [facility].72 [facility] Basophils (Bld) [#/Vol] 0.00 10*3/uL [facility] Basophils/100 WBC (Bld) 0 % 0 - 2 % [facility] Differential Type NOT REPORTED [facility] Eosinophils/100 WBC (Bld) 4 % 1 - 4 % [facility] Hematocrit (Bld) [Volume fraction] 34.4 % Low 36.3 - 47.1 % [facility] Hemoglobin.gastroint estinal spec 1 Ql (Stl) 11.5 g/dL Low 11.9 - 15.1 g/dL [facility] Immature granulocytes/100 WBC (Bld) 0 % 0 [facility] Interpretation and review of laboratory results Abnormal [facility] Lymphocytes/100 WBC (Bld) 37 % 24 - 44 % [facility] MCH (RBC) [Entitic mass] 28.6 pg 25.2 - 33.5 pg [facility] MCHC (RBC) [Mass/Vol] 33.4 g/dL 28.4 - 34.8 g/dL [facility] MCV (RBC) [Entitic vol] 85.6 fL 82.6 - 102.9 fL [facility] Monocytes/100 WBC (Bld) 13 % High 1 - 7 % [facility] Morphology Dontrell (Bld) [Interp] Normal [facility] NRBC Automated 0.0 0.0 per 100 WBC [facility] Platelet distribution width (Bld) [Ratio] 13.5 % 11.8 - 14.4 % [facility] Platelet Estimate NOT REPORTED [facility] Platelet mean volume (Bld) [Entitic vol] NOT REPORTED 8.1 - 13.5 fL [facility] Platelets (Bld) [#/Vol] See Reflexed IPF Result [facility] RBC (Bld) [#/Vol] 4.02 10*6/uL 3.95 - 5.11 m/uL [facility] RBC (Bld) [#/Vol] NOT REPORTED [facility] Segmented neutrophils/100 WBC (Bld) 46 % 36 - 66 % [facility]s [facility] [#/Vol] 5.5 10*3/uL [facility] WBC (Bld) [#/Vol] NOT REPORTED [facility] CBC with Diffon 10-03-2021 Abs. Basophil 0.00 k/uL Normal 0.0-0.2 [facility] Comment on above: Performed By: #### PRATIBHA Claudio #### [address] [address] Receiver Setter: Brandan Ugalde MD Abs.Imm.Granulocyte 0.00 k/uL Normal 0.00-0.30 [facility] Comment on above: Performed By: #### PRATIBHA Claudio #### [place] [address] Receiver Setter: Brandan Ugalde MD Abs.Neutrophil (Seg) 2.52 k/uL Normal 1.8-7.7 [facility] Comment on above: Performed By: #### PRATIBHA Claudio #### [place] [address] Receiver Setter: Brandan Ugalde MD Basophils/100 WBC (Bld) 0 % Normal 0-2 [facility] Comment on above: Performed By: #### PRATIBHA Claudio #### [address] [address] Receiver Setter: Brandan Ugalde MD Eosinophils (Bld) [#/Vol] 0.22 10*3/uL Normal 0.0-0.4 [facility] Comment on above: Performed By: #### PRATIBHA Claudio #### [address] [address] Receiver Setter: Brandan Ugalde MD Eosinophils/100 WBC (Bld) 4 % Normal 1-4 [facility] Comment on above: Performed By: #### PRATIBHA Claudio #### [address] [address] Receiver Setter: Brandan Ugalde MD Immature granulocytes/100 WBC (Bld) 0 % Normal 0 [facility] Comment on above: Performed By: #### PRATIBHA Claudio #### [facility] [address] [place] [address] Receiver Setter: Brandan Ugalde MD Lymphocytes (Bld) [#/Vol] 2.04 10*3/uL Normal 1.0-4.8 [facility] Comment on above: Performed By: #### U A, UMICAO #### [facility] [address] [place] [address] Receiver Setter: Brandan Ugalde MD Lymphocytes/100 WBC (Bld) 37 % Normal 24-44 [facility] Comment on above: Performed By: #### U A, UMICAO #### [address] [address] Receiver Setter: Brandan Ugalde MD Monocytes (Bld) [#/Vol] 0.72 10*3/uL Normal 0.1-0.8 [facility] Comment on above: Performed By: #### U A, UMICAO #### [address] [address] Receiver Setter: Brandan Ugalde MD Monocytes/100 WBC (Bld) 13 % High 1-7 [facility] Comment on above: Performed By: #### U A, UMICAO #### [address] [address] Receiver Setter: Brandan Ugalde MD Morphology Dontrell (Bld) [Interp] Normal Normal [facility] Comment on above: Performed By: #### U A, UMICAO #### [address] [address] Receiver Setter: Brandan Ugalde MD Neutrophil (Seg) 46 % Normal 36-66 [facility] Comment on above: Performed By: #### U A, UMICAO #### [address] [address] Receiver Setter: Brandan Ugalde MD Erythrocyte distribution width (RBC) [Ratio] 13.5 % Normal 11.8-14.4 [facility] Comment on above: Performed By: #### U A, PRATIBHA #### [facility] [address] [place] [address] Receiver Setter: Brandan Ugalde MD Hematocrit (Bld) [Volume fraction] 34.4 % Low 36.3-47.1 [facility] Comment on above: Performed By: #### U A, UMICAO #### [facility] [address] [place] [address] Receiver Setter: Brandan Ugalde MD Hemoglobin (Bld) [Mass/Vol] 11.5 g/dL Low 11.9-15.1 [facility] Comment on above: Performed By: #### U A, FRANKO #### [facility] [employer] [address] [place] [address] Receiver Setter: Brandan Ugalde MD MCH (RBC) [Entitic mass] 28.6 pg Normal 25.2-33.5 [facility] Comment on above: Performed By: #### U A, FRANKO #### [facility] [employer] [address] [place] [address] Receiver Setter: Brandan Ugalde MD MCHC (RBC) [Mass/Vol] 33.4 g/dL Normal 28.4-34.8 [facility] Comment on above: Performed By: #### U A, UMICAO #### [address] [address] Receiver Setter: Brandan Ugalde MD MCV (RBC) [Entitic vol] 85.6 fL Normal 82.6-102.9 [facility] Comment on above: Performed By: #### U A, UMICAO #### [facility] [employer] [address] [place] [address] Receiver Setter: Brandan Ugalde MD NRBC Automated 0.0 per 100 WBC Normal 0.0 [facility] Comment on above: Performed By: #### U PRATIBHA Phipps #### [facility] [employer] [address] [place] [address] Receiver Setter: Brandan Ugalde MD Platelet Count See Reflexed IPF Result Normal 138-453 [facility] Comment on above: Performed By: #### U APRATIBHA #### [facility] [employer] [address] [place] [address] Receiver Setter: Brandan Ugalde MD RBC (Bld) [#/Vol] 4.02 10*6/uL Normal 3.95-5.11 [facility] Comment on above: Performed By: #### U PRATIBHA Phipps #### [address] [address] Receiver Setter: Brandan Ugalde MD WBC (Bld) [#/Vol] 5.5 10*3/uL Normal 3.5-11.3 [facility] Comment on above: Performed By: #### U PRAITBHA Phipps #### [address] [address] Receiver Setter: Brandan Ugalde MD Auto Diff Performed NOT REPORTED Normal [facility] Comment on above: Performed By: #### U PRATIBHA Phipps #### [facility] [employer] [address] [place] [address] Receiver Setter: Brandan Ugalde MD MPV NOT REPORTED Normal 8.1-13.5 [facility] Comment on above: Performed By: #### U ACOLLEENICAO #### [facility] [employer] [address] [place] [address] Receiver Setter: Brandan Ugalde MD Platelet Comment NOT REPORTED Normal [facility] Comment on above: Performed By: #### U A, UMICAO #### [facility] [address] [place] [address] Receiver Setter: Brandan Ugalde MD RBC morphology finding Nom (Bld) NOT REPORTED Normal [facility] Comment on above: Performed By: #### U A, UMICAO #### [facility] [address] [place] [address] Receiver Setter: Brandan Ugalde MD WBC Morphology NOT REPORTED Normal [facility] Comment on above: Performed By: #### U A, UMICAO #### [facility] [address] [place] [address] Receiver Setter: Brandan Ugalde MD Cult, Bloodon 10-03-2021 Cult, Blood Specimen Description .BLOOD Special Requests L HAND 2ML Culture NO GROWTH 5 DAYS Report Status FINAL 10/03/2021 Normal [facility] Comment on above: Performed By: #### U A, UMICAO #### [facility] [address] [place] [address] Receiver Setter: Brandan Ugalde MD Cult,Bloodon 10-03-2021 Cult,Blood Specimen Description .BLOOD Special Requests NOT REPORTED Culture NO GROWTH 5 DAYS Report Status FINAL 10/03/2021 Normal [facility] Comment on above: Performed By: #### U A, UMICAO #### [address] [address] Receiver Setter: Brandan Ugalde MD Culture, Blood 1on 2 Bacteria identified Cx Nom (Unsp spec) NO GROWTH 5 DAYS [facility] Special Requests NOT REPORTED [facility] Specimen Description .BLOOD [facility] Culture, Blood 2on 2 Bacteria identified Cx Nom (Unsp spec) NO GROWTH 5 DAYS [facility] Special Requests L HAND 2ML [facility] Specimen Description .BLOOD [facility] Immature Platelet Fractionon 10-03-2021 Platelet, Fluorescence Platelet clumps present, count appears adequate. [facility] Comment on above: ORDERED BY LAB Platelet, Immature Fraction NOT REPORTED 1.1 - 10.3 % [facility] PLT, Immature Fract.on 10-03 Platelet, Fluoresc. Platelet clumps present, count appears adequate. Normal 138-453 [facility] Comment on above: Result Comment: ORDE RED BY LAB Performed By: #### U PRATIBHA Phipps #### [facility] [place], [place] [id number] Receiver Setter: Brandan Ugalde MD PLT, Immature Fract. NOT REPORTED Normal 1.1-10.3 [facility] Comment on above: Performed By: #### U A, PRATIBHA #### [address] [id number] Receiver Setter: Brandan Ugalde MD POC Glucose Fingerstickon Glucose [Mass/Vol] 236 mg/dL High 65 - 105 mg/dL [facility] Interpretation and review of laboratory results Abnormal [facility] Glucose [Mass/Vol] 89 mg/dL 65 - 105 mg/dL [facility] Phosphoruson 10-03-2021 Phosphate [Mass/Vol] 4.2 mg/dL 2.6 - 4.5 mg/dL [facility] Phosphorus, Inorg.on 022 Phosphorus, Inorg. 4.2 mg/dL Normal 2.6-4.5 [facility] Comment on above: Performed By: #### U Desire, PRATIBHA #### [facility] [employer] [facility] [place], [place] [id number] Receiver Setter: Brandan Ugalde MD C DIFF TOXIN/ANTIGENon 10-02 C DIFF AG + TOXIN Negative NEGATIVE [facility] sheryl Comment on above: No C. difficile anti gen and Toxin Detected. Specimen Description .FECES [facility] C diff Ag + Toxinon 10-02-19 C diff Ag + Toxin Negative Normal NEG [facility] Comment on above: Result Comment: No C . difficile antigen and Toxin Detected. Performed By: #### U PRATIBHA Phipps #### [facility] [address] [place] [address] Receiver Setter: Brandan Ugalde MD CBC auto differentialon 09-05 Absolute Eos # 0.11 [facility] th Absolute Immature Granulocyte 0.08 [facility] Absolute Lymph # 1.84 [facility] Absolute Wallace # 0.59 [facility] Basophils (Bld) [#/Vol] 0.03 10*3/uL [facility] Basophils/100 WBC (Bld) 1 % 0 - 2 % [facility] Differential Type NOT REPORTED [facility] Eosinophils/100 WBC (Bld) 2 % 1 - 4 % [facility] Hematocrit (Bld) [Volume fraction] 31.2 % Low 36.3 - 47.1 % [facility] Hemoglobin.gastroint estinal spec 1 Ql (Stl) 10.4 g/dL Low 11.9 - 15.1 g/dL [facility] Immature granulocytes/100 WBC (Bld) 2 % High 0 [facility] Interpretation and review of laboratory results Abnormal [facility] Lymphocytes/100 WBC (Bld) 35 % 24 - 43 % [facility] MCH (RBC) [Entitic mass] 28.7 pg 25.2 - 33.5 pg [facility] MCHC (RBC) [Mass/Vol] 33.3 g/dL 28.4 - 34.8 g/dL [facility] MCV (RBC) [Entitic vol] 86.2 fL 82.6 - 102.9 fL [facility] Monocytes/100 WBC (Bld) 11 % 3 - 12 % [facility] NRBC Automated 0.0 0.0 per 100 WBC [facility] Platelet distribution width (Bld) [Ratio] 13.7 % 11.8 - 14.4 % [facility] Platelet Estimate NOT REPORTED [facility] Platelet mean volume (Bld) [Entitic vol] 9.0 fL 8.1 - 13.5 fL [facility] Platelets (Bld) [#/Vol] 92 10*3/uL [facility] RBC (Bld) [#/Vol] 3.62 10*6/uL Low 3.95 - 5.11 m/uL [facility] RBC (Bld) [#/Vol] NOT REPORTED [facility] Segmented neutrophils/100 WBC (Bld) 49 % 36 - 65 % [facility] Segs Absolute 2.58 [facility] WBC (Bld) [#/Vol] 5.2 10*3/uL [facility] WBC (Bld) [#/Vol] NOT REPORTED [facility] CBC with Diffon 10-02-2021 Abs. Basophil 0.03 k/uL Normal 0.00-0.20 [facility] Comment on above: Performed By: #### U PRATIBHA Phipps #### [facility] [employer] [address] [place] [address] Receiver Setter: Brandan Ugalde MD Abs.Imm.Granulocyte 0.08 k/uL Normal 0.00-0.30 [facility] Comment on above: Performed By: #### U PRATIBHA Phipps #### [facility] [employer] [address] [place] [address] Receiver Setter: Brandan Ugalde MD Abs.Neutrophil (Seg) 2.58 k/uL Normal 1.50-8.10 [facility] Comment on above: Performed By: #### U AFRANKO #### [facility] [employer] [address] [place] [address] Receiver Setter: Brandan Ugalde MD Basophils/100 WBC (Bld) 1 % Normal 0-2 [facility] Comment on above: Performed By: #### U AFRANKO #### [address] [address] Receiver Setter: Brandan Ugalde MD Eosinophils (Bld) [#/Vol] 0.11 10*3/uL Normal 0.00-0.44 [facility] Comment on above: Performed By: #### U AFRANKO #### [facility] [employer] [address] [place] [address] Receiver Setter: Brandan Ugalde MD Eosinophils/100 WBC (Bld) 2 % Normal 1-4 [facility] Comment on above: Performed By: #### U AFRANKO #### [address] [address] Receiver Setter: Brandan Ugalde MD Immature granulocytes/100 WBC (Bld) 2 % High 0 [facility] Comment on above: Performed By: #### U A, UMICAO #### [address] [address] Receiver Setter: Brandan Ugalde MD Lymphocytes (Bld) [#/Vol] 1.84 10*3/uL Normal 1.10-3.70 [facility] Comment on above: Performed By: #### U A, UMICAO #### [address] [address] Receiver Setter: Brandan Ugalde MD Lymphocytes/100 WBC (Bld) 35 % Normal 24-43 [facility] Comment on above: Performed By: #### U A UMICAO #### [address] [address] Receiver Setter: Brandan Ugalde MD Monocytes (Bld) [#/Vol] 0.59 10*3/uL Normal 0.10-1.20 [facility] Comment on above: Performed By: #### U A, UMICAO #### [address] [address] Receiver Setter: Brandan Ugalde MD Monocytes/100 WBC (Bld) 11 % Normal 3-12 [facility] Comment on above: Performed By: #### U A, UMICAO #### [address] [address] Receiver Setter: Brandan Ugalde MD Neutrophil (Seg) 49 % Normal 36-65 [facility] Comment on above: Performed By: #### U A, UMICAO #### [address] [address] Receiver Setter: Brandan Ugalde MD Erythrocyte distribution width (RBC) [Ratio] 13.7 % Normal 11.8-14.4 [facility] Comment on above: Performed By: #### U A, UMICAO #### [facility] [employer] [address] [place] [address] Receiver Setter: Brandan Ugalde MD Hematocrit (Bld) [Volume fraction] 31.2 % Low 36.3-47.1 [facility] Comment on above: Performed By: #### U A, UMICAO #### [facility] [employer] [address] [place] [address] Receiver Setter: Brandan Ugalde MD Hemoglobin (Bld) [Mass/Vol] 10.4 g/dL Low 11.9-15.1 [facility] Comment on above: Performed By: #### U A, UMICAO #### [address] [address] Receiver Setter: Brandan Ugalde MD MCH (RBC) [Entitic mass] 28.7 pg Normal 25.2-33.5 [facility] Comment on above: Performed By: #### U A, UMICAO #### [address] [address] Receiver Setter: Brandan Ugalde MD MCHC (RBC) [Mass/Vol] 33.3 g/dL Normal 28.4-34.8 [facility] Comment on above: Performed By: #### U A, UMICAO #### [facility] [employer] [address] [place] [address] Receiver Setter: Brandan Ugalde MD MCV (RBC) [Entitic vol] 86.2 fL Normal 82.6-102.9 [facility] Comment on above: Performed By: #### U A, UMICAO #### [facility] [employer] [address] [place] [address] Receiver Setter: Brandan Ugalde MD NRBC Automated 0.0 per 100 WBC Normal 0.0 [facility] Comment on above: Performed By: #### U APRATIBHA #### [address] [address] Receiver Setter: Brandan Ugalde MD Platelet mean volume (Bld) [Entitic vol] 9.0 fL Normal 8.1-13.5 [facility] Comment on above: Performed By: #### U AFRANKO #### [facility] [employer] [address] [place] [address] Receiver Setter: Brandan Ugalde MD Platelets (Bld) [#/Vol] 92 10*3/uL Low 138-453 [facility] Comment on above: Performed By: #### U AFRANKO #### [address] [address] Receiver Setter: Brandan Ugalde MD RBC (Bld) [#/Vol] 3.62 10*6/uL Low 3.95-5.11 [facility] Comment on above: Performed By: #### U APRATIBHA #### [address] [address] Receiver Setter: Brnadan Ugalde MD WBC (Bld) [#/Vol] 5.2 10*3/uL Normal 3.5-11.3 [facility] Comment on above: Performed By: #### U A, UMICAO #### [address] [address] Receiver Setter: Brandan Ugalde MD Auto Diff Performed NOT REPORTED Normal [facility] Comment on above: Performed By: #### U A, UMICAO #### [facility] [employer] [address] [place] [address] Receiver Setter: Brandan Ugalde MD Platelet Comment NOT REPORTED Normal [facility] Comment on above: Performed By: #### U A, COLLEENICAO #### [facility] [address] [place] [address] Receiver Setter: Brandan Ugalde MD RBC morphology finding Nom (Bld) NOT REPORTED Normal [facility] Comment on above: Performed By: #### U A, UMICAO #### [facility] [employer] [address] [place], [place] [id number] Receiver Setter: Brandan Ugalde MD WBC Morphology NOT REPORTED Normal [facility] Comment on above: Performed By: #### U A, UMICAO #### [facility] [employer] [address] [place], [place] [phone] Receiver Setter: Brandan Ugalde MD Gastrointestinal Panel, [facility] 10-02-2021 Campylobacter PCR NEGATIVE: No Campylobacter spp. (jejuni or coli) DNA Detected NEGATIVE: No Campylobacter spp. (jejuni or coli) DNA Detecte [facility] E Coli Enterotoxigenic PCR NEGATIVE: No Enterotoxigenic E. coli (ETEC) Heat-labile and heat-stable (LT/ST) DNA Detected NEGATIVE: No Enterotoxigenic E. coli (ETEC) Heat-labile and [facility] Plesiomonas Shigelloides PCR Negative NEGATIVE: No Plesionomas shigelloides DNA Detected [facility] Salmonella PCR Negative NEGATIVE: No Salmonella spp. DNA Detected [facility] Shigatoxin Gene PCR Negative NEGATIVE : No Shiga toxin-producing gene(s) Detected [facility] Shigella Sp PCR Negative NEGATIVE: No Shigella spp. / EIEC DNA Detected [facility] Specimen Description .FECES [facility] Vibrio PCR NEGATIVE: No Vibrio (V. vulnificus, V, parahaemolyticus and V. cholerae) DNA Detected NEGATIVE: No Vibrio (V. vulnificus, V, parahaemolyticus and [facility] Yersinia Enterocolitica PCR Negative NEGATIVE: No Yersinia enterocolitica DNA Detected [facility] Haptoglobinon 10-02-2021 Haptoglobin 346 mg/dL High 30-200 [facility] Comment on above: Performed By: #### P TT, FIB, PT, LYTE, DBILI, TBIL, RETCT, CBC, LD, HAPT, PATH ####[employer] [id number] [place] [address] Lab Director: Brandan Ugalde MD Haptoglobin 346 mg/dL High 30 - 200 mg/dL [facility] Interpretation and review of laboratory results Abnormal [facility] POC Glucose Fingerstickon Glucose [Mass/Vol] 200 mg/dL High 65 - 105 mg/dL [facility] Interpretation and review of laboratory results Abnormal [facility] Glucose [Mass/Vol] 131 mg/dL High 65 - 105 mg/dL [facility] Interpretation and review of laboratory results Abnormal [facility] Glucose [Mass/Vol] 122 mg/dL High 65 - 105 mg/dL [facility] Interpretation and review of laboratory results Abnormal [facility] Glucose [Mass/Vol] 119 mg/dL High 65 - 105 mg/dL [facility] Interpretation and review of laboratory results Abnormal [facility] Glucose [Mass/Vol] 135 mg/dL High 65 - 105 mg/dL [facility] Interpretation and review of laboratory results Abnormal [facility] Phosphoruson 10-02-2021 Phosphate [Mass/Vol] 3.0 mg/dL 2.6 - 4.5 mg/dL [facility] Phosphorus, Inorg.on 022 Phosphorus, Inorg. 3.0 mg/dL Normal 2.6-4.5 [facility] Comment on above: Performed By: #### U PRATIBHA Phipps #### [facility] [address] [place] [address] Receiver Setter: Brandan Ugalde MD RENAL FUNCTION PANELon 10-02 Albumin [Mass/Vol] 2.5 g/dL Low 3.5 - 5.2 g/dL [facility] Anion gap [Moles/Vol] 9 mmol/L 9 - 17 mmol/L [facility] Calcium [Mass/Vol] 8.7 mg/dL 8.6 - 10.4 mg/dL [facility] Chloride [Moles/Vol] 109 mmol/L High 98 - 107 mmol/L [facility] CO2 [Moles/Vol] 23 mmol/L 20 - 31 mmol/L [facility] Creatinine [Mass/Vol] 1.46 mg/dL High 0.50 - 0.90 mg/dL [facility] GFR 48 mL/min Low >60 [facility] GFR Non- 39 mL/min Low >60 [facility] GFR/1.73 sq M.predicted MDRD (S/P/Bld) [Vol rate/Area] [facility] Comment on above: Average GFR for 40-4 9 years old: 99 mL/min/1.73sq m Chronic Kidney Disease: <60 mL/min/1.73sq m Kidney failure: <15 mL/min/1.73sq m eGFR calculated using average adult body mass. Additional eGFR calculator available at: http://www.Jimmy Fairly/Medaxion_crcl_2012.htm GFR/1.73 sq M.predicted MDRD (S/P/Bld) [Vol rate/Area] NOT REPORTED [facility] Glucose [Mass/Vol] 109 mg/dL High 70 - 99 mg/dL [facility] Interpretation and review of laboratory results Abnormal [facility] Phosphate [Mass/Vol] 3.2 mg/dL 2.6 - 4.5 mg/dL [facility] Potassium [Moles/Vol] 3.6 mmol/L Low 3.7 - 5.3 mmol/L [facility] Sodium [Moles/Vol] 141 mmol/L 135 - 144 mmol/L [facility] Urea nitrogen (BldV) [Mass/Vol] 22 mg/dL High 6 - 20 mg/dL [facility] Urea nitrogen/Creatinine (Bld) [Mass ratio] NOT REPORTED [facility] Renal Function Panelon 10-02 (cont.) Normal [facility] Comment on above: Result Comment: Aver age GFR for 40-49 years old: 99 mL/min/1.73sq m Chronic Kidney Disease: <60 mL/min/1.73sq m Kidney failure: <15 mL/min/1.73sq m eGFR calculated using average adult body mass. Additional eGFR calculator available at: http://www.Jimmy Fairly/Medaxion_crcl_2012.htm Performed By: #### PRATIBHA Claudio #### [employer] [address] [place] [address] Receiver Setter: Brandan Ugalde MD Albumin [Mass/Vol] 2.5 g/dL Low 3.5-5.2 [facility] Comment on above: Performed By: #### U A, COLLEENICAO #### [facility] [address] [place] [address] Receiver Setter: Brandan Ugalde MD Anion gap [Moles/Vol] 9 mmol/L Normal 9-17 [facility] Comment on above: Performed By: #### U ACOLLEENICAO #### [facility] [address] [place] [address] Receiver Setter: Brandan Ugalde MD Calcium [Mass/Vol] 8.7 mg/dL Normal 8.6-10.4 [facility] Comment on above: Performed By: #### U AFRANKO #### [facility] [employer] [address] [place] [address] Receiver Setter: Brandan Ugalde MD Chloride [Moles/Vol] 109 mmol/L High 98-107 [facility] Comment on above: Performed By: #### U ACOLLEENICAO #### [facility] [address] [place] [address] Receiver Setter: Brandan Ugalde MD CO2 [Moles/Vol] 23 mmol/L Normal 20-31 [facility] Comment on above: Performed By: #### U ACOLLEENICAO #### [facility] [address] [place] [address] Receiver Setter: Brandan Ugalde MD Creatinine [Mass/Vol] 1.46 mg/dL High 0.50-0.90 [facility] Comment on above: Performed By: #### U A, UMICAO #### [facility] [address] [place] [address] Receiver Setter: Brandan Ugalde MD GFR, Amer 48 mL/min Low >60 [facility] Comment on above: Performed By: #### U PRATIBHA Phipps #### [facility] [address] [place] [address] Receiver Setter: Brandan Ugalde MD GFR,non Amer 39 mL/min Low >60 [facility] Comment on above: Performed By: #### U PRATIBHA Phipps #### [facility] [address] [place] [address] Receiver Setter: Brandan Ugalde MD Glucose [Mass/Vol] 109 mg/dL High 70-99 [facility] Comment on above: Performed By: #### PRATIBHA Claudio #### [facility] [address] [place] [address] Receiver Setter: Brandan Ugalde MD Phosphorus, Inorg. 3.2 mg/dL Normal 2.6-4.5 [facility] Comment on above: Performed By: #### U PRATIBHA Phipps #### [facility] [employer] [address] [place] [address] Receiver Setter: Brandan Ugalde MD Potassium [Moles/Vol] 3.6 mmol/L Low 3.7-5.3 [facility] Comment on above: Performed By: #### PRATIBHA Claudio #### [facility] [employer] [address] [place] [address] Receiver Setter: Brandan Ugalde MD Sodium [Moles/Vol] 141 mmol/L Normal 135-144 [facility] Comment on above: Performed By: #### U PRATIBHA Phipps #### [facility] [address] [place] [address] Receiver Setter: Brandan Ugalde MD Urea nitrogen [Mass/Vol] 22 mg/dL High 6-20 [facility] Comment on above: Performed By: #### U PRATIBHA Phipps #### [facility] [employer] [address] [place] [address] Receiver Setter: Brandan Ugalde MD BUN/CRE Ratio NOT REPORTED Normal 05-24 [facility] Comment on above: Performed By: #### U A, UMICAO #### [address] [address] Receiver Setter: Brandan Ugalde MD Staging: NOT REPORTED Normal [facility] Comment on above: Performed By: #### U A, UMICAO #### [facility] [employer] [address] [place] [address] Receiver Setter: Brandan Ugalde MD Stool PCR [place] 10-02-19 22 Campylobacter sp PCR NEGATIVE: No Campylobacter spp. (jejuni or coli) DNA Detected Normal CAMNEG [facility] Comment on above: Performed By: #### U A UMICAO #### [address] [address] Receiver Setter: Brandan Ugalde MD E coli enterotox PCR NEGATIVE: No Enterotoxigenic E. coli (ETEC) Heat-labile and heat-stable (LT/ST) Normal EECNEG [facility] Comment on above: Result Comment: DNA Detected Performed By: #### U A, UMICAO #### [address] [address] Receiver Setter: Brandan Ugalde MD Plesiomonas sp PCR Negative Normal PLENEG [facility] Comment on above: Performed By: #### U A, UMICAO #### [address] [address] Receiver Setter: Brandan Ugalde MD Salmonella sp PCR Negative Normal SALNEG [facility] Comment on above: Performed By: #### U A, UMICAO #### [facility] [employer] [address] [place] [address] Receiver Setter: Brandan Ugalde MD Shigatoxin gene PCR Negative Normal STXNEG [facility] Comment on above: Performed By: #### U A, COLLEENICAO #### [facility] [employer] [address] [place] [address] Receiver Setter: Brandan Ugalde MD Shigella sp PCR Negative Normal SHINEG [facility] Comment on above: Performed By: #### U A, FRANKO #### [facility] [employer] [address] [place] [address] Receiver Setter: Brandan Ugalde MD Vibrio sp PCR NEGATIVE: No Vibrio (V. vulnificus, V, parahaemolyticus and V. cholerae) DNA Normal VIBNEG [facility] Comment on above: Result Comment: Dete cted Performed By: #### U A, PRATIBHA #### [facility] [employer] [address] [place] [address] Receiver Setter: Brandan Ugalde MD Yersinia gene PCR Negative Normal YERNEG [facility] Comment on above: Performed By: #### U A, PRATIBHA #### [facility] [employer] [address] [place] [address] Receiver Setter: Brandan Ugalde MD APTTon 10-01-2021 aPTT Coag (Bld) [Time] 22.1 s Normal 20.5-30.5 [facility] Comment on above: Result Comment: IV Heparin Therapy Range: 48.6-77.8 Performed By: #### L ACWB #### [facility] [employer] [address] [place] [address] Receiver Setter: Brandan Ugalde MD aPTT Coag (Bld) [Time] 22.1 s [facility] Comment on above: IV Heparin Therapy Range: 48.6-77.8 [facility] BETA-HYDROXYBUTERATEon 10-01 Beta-Hydroxybutyrate 0.2 mmol/L 0.02 - 0.27 mmol/L [facility] Beta Hydroxybutyrateon 10-01 Beta Hydroxybutyrate 0.20 mmol/L Normal 0.02-0.27 [facility] Comment on above: Performed By: #### V BG #### [place] [address] Receiver Setter: Brandan Ugalde MD Bilirubin, Directon 10-01-19 Bilirubin.indirect [Mass/Vol] 0.08 mg/dL Normal <0.31 [facility] Comment on above: Performed By: #### P TT, FIB, PT, LYTE, DBILI, TBIL, RETCT, CBC, LD, HAPT, PATH ####[address] [address] Lab Director: Brandan Ugalde MD Bilirubin.indirect [Mass/Vol] 0.08 mg/dL <0.31 [facility] Bilirubin, Totalon 2 Bilirubin [Mass/Vol] 0.17 mg/dL Low 0.3-1.2 [facility] Comment on above: Performed By: #### P TT, FIB, PT, LYTE, DBILI, TBIL, RETCT, CBC, LD, HAPT, PATH ####[place] [address] Lab Director: Brandan Ugalde MD Bilirubin [Mass/Vol] 0.17 mg/dL Low 0.3 - 1.2 mg/dL [facility] C diff Ag + Toxinon 10-01-19 Specimen Description .FECES Normal [facility] Comment on above: Performed By: #### U A, UMICAO #### [place] [address] Receiver Setter: Brandan Ugalde MD CBCon 10-01-2021 Erythrocyte distribution width (RBC) [Ratio] 13.8 % Normal 11.8-14.4 [facility] Comment on above: Performed By: #### P TT, FIB, PT, LYTE, DBILI, TBIL, RETCT, CBC, LD, HAPT, PATH ####[address] [id number] lab Director: Brandan Ugalde MD Hematocrit (Bld) [Volume fraction] 32.2 % Low 36.3-47.1 [facility] Comment on above: Performed By: #### P TT, FIB, PT, LYTE, DBILI, TBIL, RETCT, CBC, LD, HAPT, PATH ####[place] [address] lab Director: Brandan Ugalde MD Hemoglobin (Bld) [Mass/Vol] 10.9 g/dL Low 11.9-15.1 [facility] Comment on above: Performed By: #### P TT, FIB, PT, LYTE, DBILI, TBIL, RETCT, CBC, LD, HAPT, PATH ####[place] [address] lab Director: Brandan Ugalde MD MCH (RBC) [Entitic mass] 29.1 pg Normal 25.2-33.5 [facility] Comment on above: Performed By: #### P TT, FIB, PT, LYTE, DBILI, TBIL, RETCT, CBC, LD, HAPT, PATH ####[place] [address] lab Director: Brandan Ugalde MD MCHC (RBC) [Mass/Vol] 33.9 g/dL Normal 28.4-34.8 [facility] Comment on above: Performed By: #### P TT, FIB, PT, LYTE, DBILI, TBIL, RETCT, CBC, LD, HAPT, PATH ####[place] [address] Lab Director: Brandan Ugalde MD MCV (RBC) [Entitic vol] 85.9 fL Normal 82.6-102.9 [facility] Comment on above: Performed By: #### P TT, FIB, PT, LYTE, DBILI, TBIL, RETCT, CBC, LD, HAPT, PATH ####[place] [address] Lab Director: Brandan Ugalde MD NRBC Automated 0.0 per 100 WBC Normal 0.0 [facility] Comment on above: Performed By: #### P TT, FIB, PT, LYTE, DBILI, TBIL, RETCT, CBC, LD, HAPT, PATH ####[place], [place] [address])[phone] Director: Brandan Ugalde MD Platelet mean volume (Bld) [Entitic vol] 10.4 fL Normal 8.1-13.5 [facility] Comment on above: Performed By: #### P TT, FIB, PT, LYTE, DBILI, TBIL, RETCT, CBC, LD, HAPT, PATH ####[place], [place] [address])[phone] Director: Brandan Ugalde MD Platelets (Bld) [#/Vol] 141 10*3/uL Normal 138-453 [facility] Comment on above: Performed By: #### P TT, FIB, PT, LYTE, DBILI, TBIL, RETCT, CBC, LD, HAPT, PATH ####[place], [place] [address])[phone] Director: Brandan Ugalde MD RBC (Bld) [#/Vol] 3.75 10*6/uL Low 3.95-5.11 [facility] Comment on above: Performed By: #### P TT, FIB, PT, LYTE, DBILI, TBIL, RETCT, CBC, LD, HAPT, PATH ####[place], [place] [address])[phone] Director: Brandan Ugalde MD WBC (Bld) [#/Vol] 4.8 10*3/uL Normal 3.5-11.3 [facility] Comment on above: Performed By: #### P TT, FIB, PT, LYTE, DBILI, TBIL, RETCT, CBC, LD, HAPT, PATH ####[facility] [address] [place] [address] [facility] Director: Brandan Ugalde MD Hematocrit (Bld) [Volume fraction] 32.2 % Low 36.3 - 47.1 % [facility] Hemoglobin.gastroint estinal spec 1 Ql (Stl) 10.9 g/dL Low 11.9 - 15.1 g/dL [facility]ation and review of laboratory results Abnormal [facility] MCH (RBC) [Entitic mass] 29.1 pg 25.2 - 33.5 pg [facility] MCHC (RBC) [Mass/Vol] 33.9 g/dL 28.4 - 34.8 g/dL [facility] MCV (RBC) [Entitic vol] 85.9 fL 82.6 - 102.9 fL [facility] NRBC Automated 0.0 0.0 per 100 WBC [facility] Platelet distribution width (Bld) [Ratio] 13.8 % 11.8 - 14.4 % [facility] Platelet mean volume (Bld) [Entitic vol] 10.4 fL 8.1 - 13.5 fL [facility] Platelets (Bld) [#/Vol] 141 10*3/uL [facility] RBC (Bld) [#/Vol] 3.75 10*6/uL Low 3.95 - 5.11 m/uL [facility] WBC (Bld) [#/Vol] 4.8 10*3/uL [facility] CBC auto differentialon 09-05 Absolute Eos # 0.05 [facility] th Absolute Immature Granulocyte 0.04 [facility] Absolute Lymph # 1.46 [employer] Absolute Wallace # 0.46 [facility] Basophils (Bld) [#/Vol] 10*3/uL [facility] Basophils/100 WBC (Bld) 1 % 0 - 2 % [facility] Differential Type NOT REPORTED [facility] Eosinophils/100 WBC (Bld) 1 % 1 - 4 % [facility] Hematocrit (Bld) [Volume fraction] 28.5 % Low 36.3 - 47.1 % [facility] Hemoglobin.gastroint estinal spec 1 Ql (Stl) 10.0 g/dL Low 11.9 - 15.1 g/dL [facility] Immature granulocytes/100 WBC (Bld) 1 % High 0 [facility] Interpretation and review of laboratory results Abnormal [facility] Lymphocytes/100 WBC (Bld) 37 % 24 - 43 % [facility] MCH (RBC) [Entitic mass] 29.6 pg 25.2 - 33.5 pg [facility] MCHC (RBC) [Mass/Vol] 35.1 g/dL High 28.4 - 34.8 g/dL [facility] MCV (RBC) [Entitic vol] 84.3 fL 82.6 - 102.9 fL [facility] Monocytes/100 WBC (Bld) 12 % 3 - 12 % [facility] NRBC Automated 0.0 0.0 per 100 WBC [facility] Platelet distribution width (Bld) [Ratio] 13.9 % 11.8 - 14.4 % [facility] Platelet Estimate NOT REPORTED [facility] Platelet mean volume (Bld) [Entitic vol] NOT REPORTED 8.1 - 13.5 fL [facility] Platelets (Bld) [#/Vol] See Reflexed IPF Result [facility] RBC (Bld) [#/Vol] 3.38 10*6/uL Low 3.95 - 5.11 m/uL [facility] RBC (Bld) [#/Vol] NOT REPORTED [facility] Segmented neutrophils/100 WBC (Bld) 48 % 36 - 65 % [facility] Segs Absolute [facility].91 [facility] [#/Vol] 3.9 10*3/uL [facility] WBC (Bld) [#/Vol] NOT REPORTED [facility] CBC with Diffon 10-01-2021 Abs. Basophil <0.03 Normal 0.00-0.20 [facility] Comment on above: Performed By: #### L ACWB #### [employer] [address] [place] [address] Receiver Setter: Brandan Ugalde MD Abs.Imm.Granulocyte 0.04 k/uL Normal 0.00-0.30 [facility] Comment on above: Performed By: #### L ACWB #### [facility] [employer] [address] [place] [address] Receiver Setter: Brandan Ugalde MD Abs.Neutrophil (Seg) 1.91 k/uL Normal 1.50-8.10 [facility] Comment on above: Performed By: #### L ACWB #### [address] [address] Receiver Setter: Brandan Ugalde MD Basophils/100 WBC (Bld) 1 % Normal 0-2 [facility] Comment on above: Performed By: #### L ACWB #### [address] [address] Receiver Setter: Brandan Ugalde MD Eosinophils (Bld) [#/Vol] 0.05 10*3/uL Normal 0.00-0.44 [facility] Comment on above: Performed By: #### L ACWB #### [address] [address] Receiver Setter: Brandan Ugalde MD Eosinophils/100 WBC (Bld) 1 % Normal 1-4 [facility] Comment on above: Performed By: #### L ACWB #### [address] [address] Receiver Setter: Brandan Ugalde MD Erythrocyte distribution width (RBC) [Ratio] 13.9 % Normal 11.8-14.4 [facility] Comment on above: Performed By: #### L ACWB #### [address] [address] Receiver Setter: Brandan Ugalde MD Hematocrit (Bld) [Volume fraction] 28.5 % Low 36.3-47.1 [facility] Comment on above: Performed By: #### L ACWB #### [address] [address] Receiver Setter: Brandan Ugalde MD Hemoglobin (Bld) [Mass/Vol] 10.0 g/dL Low 11.9-15.1 [facility] Comment on above: Performed By: #### L ACWB #### [address] [address] Receiver Setter: Brandan Ugalde MD Immature granulocytes/100 WBC (Bld) 1 % High 0 [facility] Comment on above: Performed By: #### L ACWB #### [address] [address] Receiver Setter: Brandan Ugalde MD Lymphocytes (Bld) [#/Vol] 1.46 10*3/uL Normal 1.10-3.70 [facility] Comment on above: Performed By: #### L ACWB #### [address] [address] Receiver Setter: Brandan Ugalde MD Lymphocytes/100 WBC (Bld) 37 % Normal 24-43 [facility] Comment on above: Performed By: #### L ACWB #### [address] [address] Receiver Setter: Brandan Ugalde MD MCH (RBC) [Entitic mass] 29.6 pg Normal 25.2-33.5 [facility] Comment on above: Performed By: #### L ACWB #### [address] [address] Receiver Setter: Brandan Ugalde MD MCHC (RBC) [Mass/Vol] 35.1 g/dL High 28.4-34.8 [facility] Comment on above: Performed By: #### L ACWB #### [address] [address] Receiver Setter: Brandan Ugalde MD MCV (RBC) [Entitic vol] 84.3 fL Normal 82.6-102.9 [facility] Comment on above: Performed By: #### L ACWB #### [address] [address] Receiver Setter: Brandan Ugalde MD Monocytes (Bld) [#/Vol] 0.46 10*3/uL Normal 0.10-1.20 [facility] Comment on above: Performed By: #### L ACWB #### [address] [address] Receiver Setter: Brandan Ugalde MD Monocytes/100 WBC (Bld) 12 % Normal 3-12 [facility] Comment on above: Performed By: #### L ACWB #### [address] [address] Receiver Setter: Brandan Ugalde MD Neutrophil (Seg) 48 % Normal 36-65 [facility] Comment on above: Performed By: #### L ACWB #### [address] [address] Receiver Setter: Brandan Ugalde MD NRBC Automated 0.0 per 100 WBC Normal 0.0 [facility] Comment on above: Performed By: #### L ACWB #### [address] [address] Receiver Setter: Brandan Ugalde MD Platelet Count See Reflexed IPF Result Normal 138-453 [facility] Comment on above: Performed By: #### L ACWB #### [address] [address] Receiver Setter: Brandan Ugalde MD RBC (Bld) [#/Vol] 3.38 10*6/uL Low 3.95-5.11 [facility] Comment on above: Performed By: #### L ACWB #### [address] [address] Receiver Setter: Brandan Ugalde MD WBC (Bld) [#/Vol] 3.9 10*3/uL Normal 3.5-11.3 [facility] Comment on above: Performed By: #### L ACWB #### [address] [address] Receiver Setter: Brandan Ugalde MD Auto Diff Performed NOT REPORTED Normal [facility] Comment on above: Performed By: #### L ACWB #### [facility] [employer] [address] [place] [address] Receiver Setter: Brandan Ugalde MD MPV NOT REPORTED Normal 8.1-13.5 [facility] Comment on above: Performed By: #### L ACWB #### [address] [address] Receiver Setter: Brandan Ugalde MD Platelet Comment NOT REPORTED Normal [facility] Comment on above: Performed By: #### L ACWB #### [address] [address] Receiver Setter: Brandan Ugalde MD RBC morphology finding Nom (Bld) NOT REPORTED Normal [facility] Comment on above: Performed By: #### L ACWB #### [address] [address] Receiver Setter: Brandna Ugalde MD WBC Morphology NOT REPORTED Normal [facility] Comment on above: Performed By: #### L ACWB #### [address] [address] Receiver Setter: Brandan Ugalde MD CHLORIDE, URINE, RANDOMon Chloride, Ur 33 mmol/L [facility] Comment on above: No normal range [...] Beulah Felix DO 10/01/21 Final result Normal [facility] CT ABDOMEN PELVIS WO CONTRAS T Additional Contrast? Oralon 10-01-2021 1. No acute process in the abdomen or pelvis. 2. Trace bilateral pleural fluid and mild bibasilar atelectasis. RECOMMENDATIONS: Unavailable [facility] RIS CONSOLIDATED EXAMINATION: CT OF THE [...] suspicious osseous abnormality. [facility] RIS CONSOLIDATED Beulah Felix, DO - 10/01/2021 [...] fluid and mild bibasilar atelectasis. RECOMMENDATIONS: Unavailable [facility] Phone: Radiology Study observation (narrative) [facility] Phone: CT ABDOMEN PELVIS WO CONTRAS T Additional Contrast? OralOrdered By: Beulah Felix on 10-01-2021 [employer] Phone: Chloride,Random Uron 022 Chloride [Moles/Vol] 33 mmol/L Normal [facility] Comment on above: Result Comment: No n ormal range established. Performed By: #### U PRATIBHA Phipps #### [facility] [address] [place] [phone] Receiver Setter: Brandan Ugalde MD Comp Metabolic Pr/rfx MGon 0 10-01-2021 AST [Catalytic activity/Vol] 12 U/L Normal <32 [facility] Comment on above: Performed By: #### L ACWB #### [employer] [address] [place] [address] Receiver Setter: Brandan Ugalde MD Bilirubin [Mass/Vol] mg/dL Low 0.3-1.2 [facility] Comment on above: Performed By: #### L ACWB #### [facility] [address] [place] [address] Receiver Setter: Brandan Ugalde MD (cont.) Normal [facility] Comment on above: Result Comment: Aver age GFR for 40-49 years old: 99 mL/min/1.73sq m Chronic Kidney Disease: <60 mL/min/1.73sq m Kidney failure: <15 mL/min/1.73sq m eGFR calculated using average adult body mass. Additional eGFR calculator available at: http://www.BumpTop.BeanJockey/multiple_crcl_2012.htm Performed By: #### L ACWB #### [address] [address] Receiver Setter: Brandan Ugalde MD Albumin [Mass/Vol] 1.9 g/dL Low 3.5-5.2 [facility] Comment on above: Performed By: #### L ACWB #### [address] [address] Receiver Setter: Brandan Ugalde MD Albumin/Glob Ratio 0.7 Low 1.0-2.5 [facility] Comment on above: Performed By: #### L ACWB #### [address] [address] Receiver Setter: Brandan Ugalde MD Alkaline Phos 69 U/L Normal 35-104 [facility] Comment on above: Performed By: #### L ACWB #### [address] [address] Receiver Setter: Brandan Ugalde MD ALT [Catalytic activity/Vol] 11 U/L Normal 5-33 [facility] Comment on above: Performed By: #### L ACWB #### [address] [address] Receiver Setter: Brandan Ugalde MD Anion gap [Moles/Vol] 10 mmol/L Normal 9-17 [facility] Comment on above: Performed By: #### L ACWB #### [address] [address] Receiver Setter: Brandan Ugalde MD Calcium [Mass/Vol] 8.2 mg/dL Low 8.6-10.4 [facility] Comment on above: Performed By: #### L ACWB #### [address] [address] Receiver Setter: Brandan Ugalde MD Chloride [Moles/Vol] 115 mmol/L High 98-107 [facility] Comment on above: Performed By: #### L ACWB #### [address] [address] Receiver Setter: Brandan Ugalde MD CO2 [Moles/Vol] 13 mmol/L Low 20-31 [facility] Comment on above: Performed By: #### L ACWB #### [address] [address] Receiver Setter: Brandan Ugalde MD Creatinine [Mass/Vol] 1.77 mg/dL High 0.50-0.90 [facility] Comment on above: Performed By: #### L ACWB #### [address] [address] Receiver Setter: Brandan Ugalde MD GFR, Amer 38 mL/min Low >60 [facility] Comment on above: Performed By: #### L ACWB #### [address] [address] Receiver Setter: Brandan Ugalde MD GFR,non Amer 31 mL/min Low >60 [facility] Comment on above: Performed By: #### L ACWB #### [address] [address] Receiver Setter: Brandan Ugalde MD Glucose [Mass/Vol] 184 mg/dL High 70-99 [facility] Comment on above: Performed By: #### L ACWB #### [address] [address] Receiver Setter: Brandan Ugalde MD Potassium [Moles/Vol] 3.5 mmol/L Low 3.7-5.3 [facility] Comment on above: Performed By: #### L ACWB #### [address] [address] Receiver Setter: Brandan Ugalde MD Protein [Mass/Vol] 4.6 g/dL Low 6.4-8.3 [facility] Comment on above: Performed By: #### L ACWB #### [facility] [employer] [address] [place] [address] Receiver Setter: Brandan Ugalde MD Sodium [Moles/Vol] 138 mmol/L Normal 135-144 [facility] Comment on above: Performed By: #### L ACWB #### [address] [address] Receiver Setter: Brandan Ugalde MD Urea nitrogen [Mass/Vol] 31 mg/dL High -20 [facility] Comment on above: Performed By: #### L ACWB #### [address] [address] Receiver Setter: Brandan Ugalde MD BUN/CRE Ratio NOT REPORTED Normal - [facility] Comment on above: Performed By: #### L ACWB #### [address] [address] Receiver Setter: Brandan Ugalde MD Staging: NOT REPORTED Normal [facility] Comment on above: Performed By: #### L ACWB #### [address] [address] Receiver Setter: Brandan Ugalde MD Comprehensive Metabolic Pane l w/ Reflex to MGon 10-01-2021 Albumin [Mass/Vol] 1.9 g/dL Low 3.5 - 5.2 g/dL [facility] Albumin/Globulin [Mass ratio] 0.7 {ratio} Low [facility] ALP (Bld) [Catalytic activity/Vol] 69 U/L 35 - 104 U/L [facility] ALT [Catalytic activity/Vol] 11 U/L 5 - 33 U/L [facility] Anion gap [Moles/Vol] 10 mmol/L 9 - 17 mmol/L [facility] AST [Catalytic activity/Vol] 12 U/L <32 [facility] Bilirubin [Mass/Vol] mg/dL Low 0.3 - 1.2 mg/dL [facility] Calcium [Mass/Vol] 8.2 mg/dL Low 8.6 - 10.4 mg/dL [facility] Chloride [Moles/Vol] 115 mmol/L High 98 - 107 mmol/L [facility] CO2 [Moles/Vol] 13 mmol/L Low 20 - 31 mmol/L [facility] Creatinine [Mass/Vol] 1.77 mg/dL High 0.50 - 0.90 mg/dL [facility] Free PSA/Total PSA [Mass fraction] 4.6 g/dL Low 6.4 - 8.3 g/dL [facility] GFR 38 mL/min Low >60 [facility] GFR Non- 31 mL/min Low >60 [facility] GFR/1.73 sq M.predicted MDRD (S/P/Bld) [Vol rate/Area] [facility] Comment on above: Average GFR for 40-4 9 years old: 99 mL/min/1.73sq m Chronic Kidney Disease: <60 mL/min/1.73sq m Kidney failure: <15 mL/min/1.73sq m eGFR calculated using average adult body mass. Additional eGFR calculator available at: http://www.Jimmy Fairly/multiple_crcl_2012.htm GFR/1.73 sq M.predicted MDRD (S/P/Bld) [Vol rate/Area] NOT REPORTED [facility] Glucose [Mass/Vol] 184 mg/dL High 70 - 99 mg/dL [facility] Interpretation and review of laboratory results Abnormal [facility] Potassium [Moles/Vol] 3.5 mmol/L Low 3.7 - 5.3 mmol/L [facility] Sodium [Moles/Vol] 138 mmol/L 135 - 144 mmol/L [facility] Urea nitrogen (BldV) [Mass/Vol] 31 mg/dL High 6 - 20 mg/dL [facility] Urea nitrogen/Creatinine (Bld) [Mass ratio] NOT REPORTED [facility] Electrolyte Panelon 10-01-19 Anion gap [Moles/Vol] 8 mmol/L Low 9 - 17 mmol/L [facility] Chloride [Moles/Vol] 108 mmol/L High 98 - 107 mmol/L [facility] CO2 [Moles/Vol] 19 mmol/L Low 20 - 31 mmol/L [facility] Interpretation and review of laboratory results Abnormal [facility] Potassium [Moles/Vol] 3.4 mmol/L Low 3.7 - 5.3 mmol/L [facility] Sodium [Moles/Vol] 135 mmol/L 135 - 144 mmol/L [facility] Anion gap [Moles/Vol] 9 mmol/L 9 - 17 mmol/L [facility] Chloride [Moles/Vol] 112 mmol/L High 98 - 107 mmol/L [facility] CO2 [Moles/Vol] 16 mmol/L Low 20 - 31 mmol/L [facility] Potassium [Moles/Vol] 3.2 mmol/L Low 3.7 - 5.3 mmol/L [facility] Sodium [Moles/Vol] 137 mmol/L 135 - 144 mmol/L [facility] Electrolyteson 10-01-2021 Anion gap [Moles/Vol] 8 mmol/L Low 9-17 [facility] Comment on above: Performed By: #### U A, UMICAO #### [employer] [address] [place] [address] Receiver Setter: Brandan Ugalde MD Chloride [Moles/Vol] 108 mmol/L High 98-107 [facility] Comment on above: Performed By: #### U A, UMICAO #### [facility] [address] [place] [phone] Receiver Setter: Brandan Ugalde MD CO2 [Moles/Vol] 19 mmol/L Low 20-31 [facility] Comment on above: Performed By: #### U A, UMICAO #### [facility] [facility] [address] [place] [address] Receiver Setter: Brandan Ugalde MD Potassium [Moles/Vol] 3.4 mmol/L Low 3.7-5.3 [facility] Comment on above: Performed By: #### U A, UMICAO #### [facility] [address] [place] [address] Receiver Setter: Brandan Ugalde MD Sodium [Moles/Vol] 135 mmol/L Normal 135-144 [facility] Comment on above: Performed By: #### U PRATIBHA Phipps #### [address] [address] Receiver Setter: Brandan Ugalde MD Anion gap [Moles/Vol] 9 mmol/L Normal 9-17 [facility] Comment on above: Performed By: #### L ACWB #### [address] [address] Receiver Setter: Brandan Ugalde MD Chloride [Moles/Vol] 112 mmol/L High 98-107 [facility] Comment on above: Performed By: #### L ACWB #### [address] [address] Receiver Setter: Brandan Ugalde MD CO2 [Moles/Vol] 16 mmol/L Low 20-31 [facility] Comment on above: Performed By: #### L ACWB #### [address] [address] Receiver Setter: Brandan Ugalde MD Potassium [Moles/Vol] 3.2 mmol/L Low 3.7-5.3 [facility] Comment on above: Performed By: #### L ACWB #### [address] [address] Receiver Setter: Brandan Ugalde MD Sodium [Moles/Vol] 137 mmol/L Normal 135-144 [facility] Comment on above: Performed By: #### L ACWB #### [address] [address] Receiver Setter: Brandan Ugalde MD Fibrinogenon 10-01-2021 Fibrinogen 389 mg/dL Normal 140-420 [facility] Comment on above: Performed By: #### L ACWB #### [facility] [employer] [address] [place], [place] [phone] Receiver Setter: Brandan Ugalde MD Fibrinogen 389 mg/dL 140 - 420 mg/dL [facility] Immature Platelet Fractionon 10-01-2021 Platelet, Fluorescence Platelet clumps present, count appears decreased. [facility] Lactate Dehydrogenaseon 09-05 LDH [Catalytic activity/Vol] 233 U/L High 135-214 [facility] Comment on above: Performed By: #### P TT, FIB, PT, LYTE, DBILI, TBIL, RETCT, CBC, LD, HAPT, PATH ####[facility] [address] [place], [place] [id number] Lab Director: Brandan Ugalde MD Interpretation and review of laboratory results Abnormal [facility] LD 233 U/L High 135 - 214 [facility] Magnesiumon 10-01-2021 Magnesium [Mass/Vol] 2.0 mg/dL Normal 1.6-2.6 [facility] Comment on above: Performed By: #### L ACWB #### [address] [address] [place] [address] Receiver Setter: Brandan Ugalde MD Magnesium [Mass/Vol] 2.0 mg/dL 1.6 - 2.6 mg/dL [facility] No Panel Informationon 10-01 [facility] Interpretation and review of laboratory results Abnormal [facility] PLT, Immature Fract.on 10-01 Platelet, Fluoresc. Platelet clumps present, count appears decreased. Normal 138-453 [facility] Comment on above: Performed By: #### L ACWB #### [facility] [employer] [facility] [place] [address] Receiver Setter: Brandan Ugalde MD PLT, Immature Fract. NOT REPORTED Normal 1.1-10.3 [facility] Comment on above: Performed By: #### L ACWB #### [employer] [address] [place] [address] Receiver Setter: Brandan Ugalde MD POC Glucose Fingerstickon Glucose [Mass/Vol] 177 mg/dL High 65 - 105 mg/dL [facility] Interpretation and review of laboratory results Abnormal [facility] Glucose [Mass/Vol] 188 mg/dL High 65 - 105 mg/dL [facility] Interpretation and review of laboratory results Abnormal [facility] Glucose [Mass/Vol] 225 mg/dL High 65 - 105 mg/dL [facility] Interpretation and review of laboratory results Abnormal [facility] Glucose [Mass/Vol] 197 mg/dL High 65 - 105 mg/dL [facility] Interpretation and review of laboratory results Abnormal [facility] Glucose [Mass/Vol] 137 mg/dL High 65 - 105 mg/dL [facility] Interpretation and review of laboratory results Abnormal [facility] POTASSIUM, URINE, RANDOMon 0 10-01-2021 Potassium, Ur 7 mmol/L [facility] Comment on above: No normal range esta blished. PROTIME-INRon 10-01-2021 INR Coag (Bld) [Relative time] 1.3 {INR} [facility] Comment on above: Therapeutic Range: Moderate Anticoagulant Intensity: INR = 2.0-3.0 High Anticoagulant Intensity: INR = 2.5-3.5 Interpretation and review of laboratory results Abnormal [facility] PT Coag (PPP) [Time] 13.8 s High [facility] PTon 10-01-2021 INR Coag (PPP) [Relative time] 1.1 {INR} Normal [facility] Comment on above: Result Comment: Therapeutic Range: Moderate Anticoagulant Intensity: INR = 2.0-3.0 High Anticoagulant Intensity: INR = 2.5-3.5 Performed By: #### L ACWB #### [facility] [address] [place] [address] Receiver Setter: Brandan Ugalde MD PT Coag (PPP) [Time] 11.4 s Normal 9.1-12.3 [facility] Comment on above: Performed By: #### L ACWB #### [facility] [place] [address] Receiver Setter: Brandan Ugalde MD INR Coag (PPP) [Relative time] 1.3 {INR} Normal [facility] Comment on above: Result Comment: Therapeutic Range: Moderate Anticoagulant Intensity: INR = 2.0-3.0 High Anticoagulant Intensity: INR = 2.5-3.5 Performed By: #### L ACWB #### [facility] [address] [place] [address] Receiver Setter: Brandan Ugalde MD PT Coag (PPP) [Time] 13.8 s High 9.1-12.3 [facility] Comment on above: Performed By: #### L ACWB #### [facility] [employer] [address] [place] [address] Receiver Setter: Brandan Ugalde MD Phosphoruson 10-01-2021 Interpretation and review of laboratory results Abnormal [facility] Phosphate [Mass/Vol] 1.8 mg/dL Low 2.6 - 4.5 mg/dL [facility] Phosphorus, Inorg.on 022 Phosphorus, Inorg. 1.8 mg/dL Low 2.6-4.5 [facility] Comment on above: Performed By: #### L ACWB #### [facility] [employer] [address] [place] [address] Receiver Setter: Brandan Ugalde MD Potassium,Random Uron 2021 Potassium [Moles/Vol] 7.0 mmol/L Normal [facility] Comment on above: Result Comment: No n ormal range established. Performed By: #### PRATIBHA Claudio #### [facility] [employer] [address] [place] [address] Receiver Setter: Brandan Ugalde MD Protime-INRon 10-01-2021 INR Coag (Bld) [Relative time] 1.1 {INR} [facility] Comment on above: Therapeutic Range: Moderate Anticoagulant Intensity: INR = 2.0-3.0 High Anticoagulant Intensity: INR = 2.5-3.5 PT Coag (PPP) [Time] 11.4 s [facility] [place] [facility] Resp Viral Panelon 2 Adenovirus Not detected Normal [facility] Comment on above: Performed By: #### R DESIGN ENGINEER MARINE EQUIPMENT ####[address] [phone] Director: MD Shoabi Wooten.parapertussis Not detected Normal [facility] Comment on above: Performed By: #### R DESIGN ENGINEER [employer]INE [employer]QUIP[employer] ####[address] [phone] Director: Brandan Ugalde MD Bordetella pertussis Not detected Normal [facility] Comment on above: Performed By: #### R DESIGN ENGINEER [employer]INE EQUIP[employer] ####[address] [phone] Director: Brandan Ugalde MD Chlamyd.pneumoniae Not detected Normal [facility] Comment on above: Performed By: #### R DESIGN ENGINEER MARINE EQUIPMENT ####[address] [address] Lab Director: Brandan Ugalde MD Coronavirus 229E Not detected Normal [facility] Comment on above: Performed By: #### R DESIGN ENGINEER MARINE EQUIPMENT ####[address] [phone] Director: Brandan Ugalde MD Coronavirus HKU1 Not detected Normal [facility] Comment on above: Performed By: #### R DESIGN ENGINEER MARINE EQUIPMENT ####[address] [phone] Director: Brandan Ugalde MD Coronavirus NL63 Not detected Normal [facility] Comment on above: Performed By: #### R DESIGN ENGINEER MARINE EQUIPMENT ####[address] [place], [place] [phone])[phone] Director: Brandan Ugalde MD Coronavirus OC43 Not detected Normal [facility] Comment on above: Performed By: #### R DESIGN ENGINEER MARINE EQUIPMENT ####[address] [address] Lab Director: Brandan Ugalde MD Human Metapneumo Not detected Normal [facility] Comment on above: Performed By: #### R DESIGN ENGINEER MARINE EQUIPMENT ####[facility] [address] [place] [address] [phone] Director: Brandan Ugalde MD Influenza A Not detected [facility] Comment on above: Performed By: #### R DESIGN ENGINEER MARINE EQUIPMENT ####[address] [phone] Director: Brandan Ugalde MD Influenza B Not detected Normal [facility] Comment on above: Performed By: #### R DESIGN ENGINEER MARINE EQUIPMENT ####[address] [address] Lab Director: Brandan Ugalde MD Mycoplas.pneumoniae Not detected Normal [facility] Comment on above: Result Comment: Perf ormed by multiplexed nucleic acid assay. Performed By: #### R DESIGN ENGINEER MARINE EQUIPMENT ####[address] [address] Lab Director: Brandan Ugalde MD Parainfluenza 1 Not detected Normal [facility] Comment on above: Performed By: #### R DESIGN ENGINEER MARINE EQUIPMENT ####[address] [address] Lab Director: Brandan Ugalde MD Parainfluenza 2 Not detected [facility] Comment on above: Performed By: #### R DESIGN ENGINEER MARINE EQUIPMENT ####[address] [address] Lab Director: Brandan Ugalde MD Parainfluenza 3 Not detected Normal [facility] Comment on above: Performed By: #### R DESIGN ENGINEER MARINE EQUIPMENT ####[address] [place] [address] Lab Director: Brandan Ugalde MD Parainfluenza 4 Not detected Normal [facility] Comment on above: Performed By: #### R DESIGN ENGINEER MARINE EQUIPMENT ####[address] [address] Lab Director: Brandan Ugalde MD Resp Syncytial Virus Not detected Normal [facility] Comment on above: Performed By: #### R DESIGN ENGINEER MARINE EQUIPMENT ####[address] [address] Lab Director: Brandan Ugalde MD Rhino/Enterovirus Not detected Normal [facility] Comment on above: Performed By: #### R DESIGN ENGINEER MARINE EQUIPMENT ####[address] [address] Lab Director: Brandan Ugalde MD SARS-CoV-2 (COVID-19) RNA ARUN+probe Ql (Unsp spec) Not detected Normal [facility] Comment on above: Performed By: #### R DESIGN ENGINEER MARINE EQUIPMENT ####[address] [address] Lab Director: Brandan Ugalde MD Influenza A H1 NOT REPORTED Normal [facility] Comment on above: Performed By: #### R DESIGN ENGINEER MARINE EQUIPMENT ####[address] [address] Lab Director: Brandan Ugalde MD Influenza A H1-2009 NOT REPORTED Normal [facility] Comment on above: Performed By: #### R DESIGN ENGINEER MARINE EQUIPMENT ####[address] [address] lab Director: Brandan Ugalde MD Influenza A H3 NOT REPORTED Normal NOTDET [facility] Comment on above: Performed By: #### R DESIGN ENGINEER MARINE EQUIPMENT ####[facility] [address] [place], [place] [phone] lab Director: Brandan Ugalde MD Source: .NASOPHARYNGEAL SWAB Normal [facility] Comment on above: Performed By: #### R DESIGN ENGINEER MARINE EQUIPMENT ####[facility] [address] [place], [place] [phone] lab Director: Brandan Ugalde MD Respiratory Panel, Molecular , with COVID-19 (Restricted: peds pts or suitable admitted adults)on 10-01-2021 Adenovirus PCR Not detected Not Detected [facility] B Pertussis by PCR Not detected Not Detected [facility] Bordetella Parapertussis Not detected Not Detected [facility] Chlamydia pneumoniae By PCR Not detected Not Detected [facility] Coronavirus 229E PCR Not detected Not Detected [facility] Coronavirus HKU1 PCR Not detected Not Detected [facility] Coronavirus NL63 PCR Not detected Not Detected [facility] Coronavirus OC43 PCR Not detected Not Detected [facility] Human Metapneumovirus PCR Not detected Not Detected [facility] Influenza A by PCR Not detected Not Detected [facility] Influenza A H1 (2009) PCR NOT REPORTED Not Detected [facility] Influenza A H1 PCR NOT REPORTED Not Detected [facility] Influenza A H3 PCR NOT REPORTED Not Detected [facility] Influenza B by PCR Not detected Not Detected [facility] Mycoplasma pneumo by PCR Not detected Not Detected [facility] Comment on above: Performed by multipl exed nucleic acid assay. Parainfluenza 1 PCR Not detected Not Detected [facility] Parainfluenza 2 PCR Not detected Not Detected [facility] Parainfluenza 3 PCR Not detected Not Detected [facility] Parainfluenza 4 PCR Not detected Not Detected [facility] Resp Syncytial Virus PCR Not detected Not Detected [facility] Rhino/Enterovirus PCR Not detected Not Detected [facility] SARS-CoV-2 (COVID-19) RNA ARUN+probe Ql (Unsp spec) Not detected Not Detected [facility] Specimen Description .NASOPHARYNGEAL SWAB [facility] Retic Counton 10-01-2021 Absolute Retic 0.070 M/uL Normal 0.030-0.080 [facility] Comment on above: Performed By: #### P TT, FIB, PT, LYTE, DBILI, TBIL, RETCT, CBC, LD, HAPT, PATH ####[facility] [address] [place] [address] lab Director: Brandan Ugalde MD IRF 9.500 % Normal 2.7-18.3 [facility] Comment on above: Performed By: #### P TT, FIB, PT, LYTE, DBILI, TBIL, RETCT, CBC, LD, HAPT, PATH ####[address] [place] [address] lab Director: Brandan Ugalde MD Retic Count 1.8 % Normal 0.5-1.9 [facility] Comment on above: Performed By: #### P TT, FIB, PT, LYTE, DBILI, TBIL, RETCT, CBC, LD, HAPT, PATH ####[facility] [address] [place] [address] lab Director: Brandan Ugalde MD Retic Hemoglobin 33.5 pg Normal 28.2-35.7 [facility] Comment on above: Performed By: #### P TT, FIB, PT, LYTE, DBILI, TBIL, RETCT, CBC, LD, HAPT, PATH ####[address] [address] lab Director: Brandan Ugalde MD Reticulocyteson 10-01-2021 Absolute Retic # 0.070 [facility] alth Immature Retic Fract 9.5 % 2.7 - 18.3 % [facility] Retic % 1.8 % 0.5 - 1.9 % [facility] Retic Hemoglobin 33.5 pg 28.2 - 35.7 pg [facility] SODIUM, URINE, RANDOMon 09-05 Sodium (U) [Moles/Vol] 27 mmol/L [facility] Comment on above: No normal range esta blished. Sodium, Random Uron 10-01-19 Sodium (U) [Moles/Vol] 27 mmol/L Normal [facility] Comment on above: Result Comment: No n ormal range established. Performed By: #### U A, UMICAO #### [facility] [facility] [place], [place] [phone] Receiver Setter: Brandan Ugalde MD Stool PCR Batteryon 10-01-19 Specimen Description .FECES Normal [facility] Comment on above: Performed By: #### U A, UMICAO #### [employer] [facility] [address] [place] [address] [phone] Receiver Setter: Brandan Ugalde MD Surgical Pathologyon 022 Surgical Pathology (NOTE) [id number] [facility] [employer] CONSULTING PATHOLOGISTS [facility] EM[facility] ANATOMIC PATHOLOGY [address] [place] [address]. [place], [place] [address] SURGICAL PATHOLOGY CONSULTATION Patient Name: CARISSA SANTOS MR#: [id number] Specimen #[id number] Procedures/Addenda PERIPHERAL BLOOD REPORT Date Ordered: 10/04/2021 Status: Signed Out Date Complete: 10/04/2021 By: Horacio Vila M.D. Date Reported: 10/04/2021 INTERPRETATION Peripheral blood: - Normocytic anemia (hemoglobin 10.9 g/dL), hypoproliferative. Recommend correlation with ferritin and other iron studies. RESULTS-COMMENTS PERIPHERAL BLOOD STUDY CBC: Please see the electronic health record for CBC parameters ([id number], 10/01/21, 08:59). PLATELETS: Platelets show normal morphology. The platelet count is 141 k/microliter. LEUKOCYTES: White blood cells show normal morphology. There are no blasts. ERYTHROCYTES: Red blood cells show normal morphology. The absolute reticulocyte count is not increased. Note: The electronic health record is reviewed. Horacio Vila M.D. Source: A: PERIPHERAL BLOOD Normal [facility] Comment on above: Performed By: #### U A, UMICAO #### [employer] [facility] [place], [place] [phone] Receiver Setter: Brandan Ugalde MD URINALYSIS WITH MICROSCOPICo n 10-01-2021 - [facility] Amorphous, UA NOT REPORTED None [facility] Bacteria, UA NOT REPORTED None [facility] Bilirubin Urine Negative NEGATIVE [facility] Casts UA 0 TO 2 HYALINE Reference range defined for non-centrifuged specimen. [facility] Color, UA Yellow Yellow [facility] Crystals, UA NOT REPORTED None /HPF [facility] Epithelial Cells UA 0 TO 2 [facility] Glucose, Ur TRACE Abnormal NEGATIVE [facility] Interpretation and review of laboratory results Abnormal [facility] Ketones Ql (U) Negative NEGATIVE [facility] Leukocyte esterase Test strip Ql (U) Negative NEGATIVE [facility] Mucus, UA NOT REPORTED None [facility] Nitrite, Urine Negative NEGATIVE [facility] Other Observations UA NOT REPORTED NOT REQ. [facility] pH, UA 5.5 [facility] Protein, UA TRACE Abnormal NEGATIVE [facility] RBC, UA 0 TO 2 [facility] Renal Epithelial, UA NOT REPORTED 0 /HPF [facility] Specific Weiner, UA 1.006 [facility] Trichomonas, UA NOT REPORTED None [facility] ealt Turbidity UA Clear Clear [facility] Urine Hgb SMALL Abnormal NEGATIVE [facility] Urobilinogen, Urine Normal Normal [facility] WBC, UA 2 TO 5 [facility] Comment on above: CORRECTED ON 10/01 A T 1024: PREVIOUSLY REPORTED 5 TO 10 Yeast, UA MANY Abnormal None [facility] Urinalysis w/ Microon 2021 Urine RBC's 0 TO 2 Normal 0-2 [facility] Comment on above: Performed By: #### U AMIC ####[facility] [address] [place], [place] [id number] Lab Director: Brandan Ugalde MD Urine WBC's 2 TO 5 Normal 0-5 [facility] Comment on above: Result Comment: MERT ECTED ON 10/01 AT 1024: PREVIOUSLY REPORTED 5 TO 10 Performed By: #### U AMIC ####[facility] [address] [place], [place] [phone] Lab Director: Brandan Ugalde MD Yeast MANY Abnormal NONE [facility] Comment on above: Performed By: #### U AMIC ####[facility] [address] [place], [place] [phone] Director: Brandan Ugalde MD ----- Normal [facility] Comment on above: Performed By: #### U AMIC ####[address] [phone] Director: Brandan Ugalde MD Bilirubin, SemiQt,Ur Negative Normal NEG [facility] Comment on above: Performed By: #### U AMIC ####[address] [phone] Director: Brandan Ugalde MD Blood, Urine SMALL Abnormal NEG [facility] Comment on above: Performed By: #### U AMIC ####[address] [phone] Director: Brandan Ugalde MD Casts 0 TO 2 HYALINE Normal 0-8 [facility] Comment on above: Result Comment: Refe rence range defined for non-centrifuged specimen. Performed By: #### U AMIC ####[address] [phone] Director: Brandan Ugalde MD Clarity (U) Clear Normal CLEAR [facility] Comment on above: Performed By: #### U AMIC ####[address] [phone] Director: Brandan Ugalde MD Color (U) Yellow Normal YEL [facility] Comment on above: Performed By: #### U AMIC ####[address] [phone] Director: Brandan Ugalde MD Epithelial cells LM Ql (Urine sed) 0 TO 2 Normal 0-5 [facility] Comment on above: Performed By: #### U AMIC ####[address] [phone] Director: Brandan Ugalde MD Glucose Ql (U) TRACE Abnormal NEG [facility] Comment on above: Performed By: #### U AMIC ####[address] [place], [place] [phone] Director: Brandan Ugalde MD Ketones Ql (U) Negative Normal NEG [facility] Comment on above: Performed By: #### U AMIC ####[address] [phone] Director: Brandan Ugalde MD Leukocyte esterase Test strip Ql (U) Negative Normal NEG [facility] Comment on above: Performed By: #### U AMIC ####[address] [phone] Director: Brandan Ugalde MD Nitrite,Ur Negative Normal NEG [facility] Comment on above: Performed By: #### U AMIC ####[address] [phone] Director: Brandan Ugalde MD PH,Ur 5.5 Normal 5.0-8.0 [facility] Comment on above: Performed By: #### U AMIC ####[address] [phone] Director: Brandan Ugalde MD Protein Ql (U) TRACE Abnormal NEG [facility] Comment on above: Performed By: #### U AMIC ####[facility] [address] [place], [place] [phone] Director: Brandan Ugalde MD Spec. Weiner,Ur 1.006 Normal 1.005-1.030 [facility] Comment on above: Performed By: #### U AMIC ####[facility] [place], [place] [phone] Director: Brandan Ugalde MD Urobilinogen,Ur Normal Normal NORM [facility] Comment on above: Performed By: #### U AMI ####[facility] [address] [place] [address] lab Director: Brandan Ugalde MD BLOOD GAS, VENOUSon 09-30-19 Bibi Test NOT REPORTED [facility] Carboxyhemoglobin 1.5 % 0 - 5 % [facility] Comment on above: Reference Range: Non-Smokers 0-2% Average Smoker 2-4% Heavy Smoker <10% FIO2 INFORMATION NOT PROVIDED [facility] HCO3 (Bld) [Moles/Vol] 17.6 mmol/L Low 24 - 30 mmol/L [facility] Interpretation and review of laboratory results Abnormal [facility] Methemoglobin NOT REPORTED 0.0 - 1.5 % [facility] Mode NOT REPORTED [facility] Negative Base Excess, Earnest 8.6 mmol/L High 0.0 - 2.0 mmol/L [facility] NOTIFICATION NOT REPORTED [facility] th NOTIFICATION TIME NOT REPORTED [facility] O2 Device/Flow/% NOT REPORTED [facility] Oxygen saturation in Blood 55.1 % Low 60.0 - 85.0 % [facility] Oxyhemoglobin NOT REPORTED 95.0 - 98.0 % [facility] pCO2, Earnest 41.1 [facility] pCO2, Earnest, Temp Adj NOT REPORTED [facility] Peep/Cpap NOT REPORTED [facility] pH, Earnest 7.255 Low [facility] pH, Earnest, Temp Adj NOT REPORTED [facility] pO2, Earnest 26.8 Low [facility] pO2, Earnest, Temp Adj NOT REPORTED [facility] Positive Base Excess, Earnest NOT REPORTED 0.0 - 2.0 mmol/L [facility] PSV NOT REPORTED [facility] Pt Temp 37.0 [facility] Pt. Position NOT REPORTED [facility] th Respiratory Rate NOT REPORTED [facility] Sample Site NOT REPORTED [facility] h Set Rate NOT REPORTED [facility] Text for Respiratory NOT REPORTED [facility] Total Hb NOT REPORTED 12.0 - 16.0 g/dl [facility] Total Rate NOT REPORTED [facility] [place] NOT REPORTED [facility] Basic Metab w/rfx MGon 09-30 Anion gap [Moles/Vol] 17 mmol/L Normal 9-17 [facility] Comment on above: Performed By: #### V BG #### [facility] [address] [place] [address] Receiver Setter: Brandan Ugalde MD Chloride [Moles/Vol] 119 mmol/L High 98-107 [facility] Comment on above: Performed By: #### V BG #### [facility] [address] [place] [address] Receiver Setter: Brandan Ugalde MD CO2 [Moles/Vol] 11 mmol/L Low 20-31 [facility] Comment on above: Performed By: #### V BG #### [facility] [employer] [address] [place] [address] Receiver Setter: Brandan Ugalde MD Potassium [Moles/Vol] 4.2 mmol/L Normal 3.7-5.3 [facility] Comment on above: Result Comment: SPEC IMEN SLIGHTLY HEMOLYZED, RESULTS MAY BE ADVERSELY AFFECTED. Performed By: #### V BG #### [facility] [address] [place] [address] Receiver Setter: Brandan Ugalde MD Sodium [Moles/Vol] 147 mmol/L High 135-144 [facility] Comment on above: Result Comment: TEST CONFIRMED Performed By: #### V BG #### [facility] [address] [place] [address] Receiver Setter: Brandan Ugalde MD (cont.) Normal [facility] Comment on above: Result Comment: Aver age GFR for 40-49 years old: 99 mL/min/1.73sq m Chronic Kidney Disease: <60 mL/min/1.73sq m Kidney failure: <15 mL/min/1.73sq m eGFR calculated using average adult body mass. Additional eGFR calculator available at: http://www.BumpTop.BeanJockey/multiple_crcl_2012.htm Performed By: #### V BG #### [facility] [address] [place] [address] [id number] Receiver Setter: Brandan Ugalde MD Calcium [Mass/Vol] 8.6 mg/dL Normal 8.6-10.4 [facility] Comment on above: Performed By: #### V BG #### [facility] [employer] [address] [place] [address] Receiver Setter: Brandan Ugalde MD Creatinine [Mass/Vol] 2.06 mg/dL High 0.50-0.90 [facility] Comment on above: Performed By: #### V BG #### [facility] [employer] [address] [place] [address] Receiver Setter: Brandan gUalde MD GFR, Amer 32 mL/min Low >60 [facility] Comment on above: Performed By: #### V BG #### [address] [address] Receiver Setter: Brandan Ugalde MD GFR,non Amer 26 mL/min Low >60 [facility] Comment on above: Performed By: #### V BG #### [address] [address] Receiver Setter: Brandan Ugalde MD Glucose [Mass/Vol] 160 mg/dL High 70-99 [facility] Comment on above: Performed By: #### V BG #### [facility] [employer] [address] [place] [address] Receiver Setter: Brandan Ugalde MD Urea nitrogen [Mass/Vol] 35 mg/dL High 6-20 [facility] Comment on above: Performed By: #### V BG #### [address] [address] Receiver Setter: Brandan Ugalde MD BUN/CRE Ratio NOT REPORTED Normal 9-20 [facility] Comment on above: Performed By: #### V BG #### [facility] [employer] [address] [place] [address] Receiver Setter: Brandan Ugalde MD Staging: NOT REPORTED Normal [facility] Comment on above: Performed By: #### V BG #### [facility] [address] [place] [address] Receiver Setter: Brandan Ugalde MD Basic Metabolic Panelon 09-05 Anion gap [Moles/Vol] 13 mmol/L 9 - 17 mmol/L [facility] Calcium [Mass/Vol] 8.9 mg/dL 8.6 - 10.4 mg/dL [facility] Chloride [Moles/Vol] 119 mmol/L High 98 - 107 mmol/L [facility] CO2 [Moles/Vol] 13 mmol/L Low 20 - 31 mmol/L [facility] Creatinine [Mass/Vol] 2.05 mg/dL High 0.50 - 0.90 mg/dL [facility] GFR 32 mL/min Low >60 [employer] GFR Non- 27 mL/min Low >60 [facility] GFR/1.73 sq M.predicted MDRD (S/P/Bld) [Vol rate/Area] [facility] Comment on above: Average GFR for 40-4 9 years old: 99 mL/min/1.73sq m Chronic Kidney Disease: <60 mL/min/1.73sq m Kidney failure: <15 mL/min/1.73sq m eGFR calculated using average adult body mass. Additional eGFR calculator available at: http://www.BumpTop.BeanJockey/multiple_crcl_2012.htm GFR/1.73 sq M.predicted MDRD (S/P/Bld) [Vol rate/Area] NOT REPORTED [facility] Glucose [Mass/Vol] 162 mg/dL High 70 - 99 mg/dL [facility] Interpretation and review of laboratory results Abnormal [facility] Potassium [Moles/Vol] 3.4 mmol/L Low 3.7 - 5.3 mmol/L [facility] Sodium [Moles/Vol] 145 mmol/L High 135 - 144 mmol/L [facility] Urea nitrogen (BldV) [Mass/Vol] 35 mg/dL High 6 - 20 mg/dL [facility] Urea nitrogen/Creatinine (Bld) [Mass ratio] NOT REPORTED [facility] Basic Metabolic Panel w/ Ref maria de jesus to MGon 09-30-2021 Anion gap [Moles/Vol] 17 mmol/L 9 - 17 mmol/L [facility] Calcium [Mass/Vol] 8.6 mg/dL 8.6 - 10.4 mg/dL [facility] Chloride [Moles/Vol] 119 mmol/L High 98 - 107 mmol/L [facility] CO2 [Moles/Vol] 11 mmol/L Low 20 - 31 mmol/L [facility] Creatinine [Mass/Vol] 2.06 mg/dL High 0.50 - 0.90 mg/dL [facility] GFR 32 mL/min Low >60 [facility] GFR Non- 26 mL/min Low >60 [facility] GFR/1.73 sq M.predicted MDRD (S/P/Bld) [Vol rate/Area] [facility] Comment on above: Average GFR for 40-4 9 years old: 99 mL/min/1.73sq m Chronic Kidney Disease: <60 mL/min/1.73sq m Kidney failure: <15 mL/min/1.73sq m eGFR calculated using average adult body mass. Additional eGFR calculator available at: http://www.Jimmy Fairly/multiple_crcl_2012.htm GFR/1.73 sq M.predicted MDRD (S/P/Bld) [Vol rate/Area] NOT REPORTED [facility] Glucose [Mass/Vol] 160 mg/dL High 70 - 99 mg/dL [facility] Interpretation and review of laboratory results Abnormal [facility] Potassium [Moles/Vol] 4.2 mmol/L 3.7 - 5.3 mmol/L [facility] Comment on above: SPECIMEN SLIGHTLY HE MOLYZED, RESULTS MAY BE ADVERSELY AFFECTED. Sodium [Moles/Vol] 147 mmol/L High 135 - 144 mmol/L [facility] Comment on above: TEST CONFIRMED Urea nitrogen (BldV) [Mass/Vol] 35 mg/dL High 6 - 20 mg/dL [facility] Urea nitrogen/Creatinine (Bld) [Mass ratio] NOT REPORTED [facility] Basic Metabolic Profon 09-30 (cont.) Normal [facility] Comment on above: Result Comment: Aver age GFR for 40-49 years old: 99 mL/min/1.73sq m Chronic Kidney Disease: <60 mL/min/1.73sq m Kidney failure: <15 mL/min/1.73sq m eGFR calculated using average adult body mass. Additional eGFR calculator available at: http://www.BumpTop.BeanJockey/multiple_crcl_2012.htm Performed By: #### V BG #### [address] [address] Receiver Setter: Brandan Ugalde MD Anion gap [Moles/Vol] 13 mmol/L Normal 9-17 [facility] Comment on above: Performed By: #### V BG #### [address] [address] Receiver Setter: Brandan Ugalde MD Calcium [Mass/Vol] 8.9 mg/dL Normal 8.6-10.4 [facility] Comment on above: Performed By: #### V BG #### [address] [address] Receiver Setter: Brandan Ugalde MD Chloride [Moles/Vol] 119 mmol/L High 98-107 [facility] Comment on above: Performed By: #### V BG #### [address] [address] Receiver Setter: Brandan Ugalde MD CO2 [Moles/Vol] 13 mmol/L Low 20-31 [facility] Comment on above: Performed By: #### V BG #### [address] [address] Receiver Setter: Brandan Ugalde MD Creatinine [Mass/Vol] 2.05 mg/dL High 0.50-0.90 [facility] Comment on above: Performed By: #### V BG #### [address] [address] Receiver Setter: Brandan Ugalde MD GFR, Amer 32 mL/min Low >60 [facility] Comment on above: Performed By: #### V BG #### [address] [address] Receiver Setter: Brandan Ugalde MD GFR,non Amer 27 mL/min Low >60 [facility] Comment on above: Performed By: #### V BG #### [address] [address] Receiver Setter: Brandan Ugalde MD Glucose [Mass/Vol] 162 mg/dL High 70-99 [facility] Comment on above: Performed By: #### V BG #### [address] [address] Receiver Setter: Brandan Ugalde MD Potassium [Moles/Vol] 3.4 mmol/L Low 3.7-5.3 [facility] Comment on above: Performed By: #### V BG #### [address] [address] Receiver Setter: Brandan Ugalde MD Sodium [Moles/Vol] 145 mmol/L High 135-144 [facility] Comment on above: Performed By: #### V BG #### [address] [address] Receiver Setter: Brandan Ugalde MD Urea nitrogen [Mass/Vol] 35 mg/dL High 6-20 [facility] Comment on above: Performed By: #### V BG #### [address] [address] Receiver Setter: Brandan Ugalde MD BUN/CRE Ratio NOT REPORTED Normal 9-20 [facility] Comment on above: Performed By: #### V BG #### [address] [address] Receiver Setter: Brandan Ugalde MD Staging: NOT REPORTED Normal [facility] Comment on above: Performed By: #### V BG #### [facility] [address] [place], [place] [id number] Receiver Setter: Brandan Ugalde MD CBC Auto Differentialon 09-05 Absolute Eos # 0.03 [facility] th Absolute Immature Granulocyte 0.05 [facility] Absolute Lymph # 1.19 [facility] alth Absolute Wallace # 0.43 [facility] Hea lth Basophils (Bld) [#/Vol] 10*3/uL [facility] Basophils/100 WBC (Bld) 0 % 0 - 2 % [facility] Differential Type NOT REPORTED [facility] Eosinophils/100 WBC (Bld) 1 % 1 - 4 % [facility] Hematocrit (Bld) [Volume fraction] 30.9 % Low 36.3 - 47.1 % [facility] Hemoglobin.gastroint estinal spec 1 Ql (Stl) 10.2 g/dL Low 11.9 - 15.1 g/dL [facility] Immature granulocytes/100 WBC (Bld) 1 % High 0 [facility] Interpretation and review of laboratory results Abnormal [facility] Lymphocytes/100 WBC (Bld) 28 % 24 - 43 % [facility] MCH (RBC) [Entitic mass] 29.1 pg 25.2 - 33.5 pg [facility] MCHC (RBC) [Mass/Vol] 33.0 g/dL 28.4 - 34.8 g/dL [facility] MCV (RBC) [Entitic vol] 88.0 fL 82.6 - 102.9 fL [facility] Monocytes/100 WBC (Bld) 10 % 3 - 12 % [facility] NRBC Automated 0.0 0.0 per 100 WBC [facility] Platelet distribution width (Bld) [Ratio] 14.2 % 11.8 - 14.4 % [facility] Platelet Estimate NOT REPORTED [facility] Platelet mean volume (Bld) [Entitic vol] 8.5 fL 8.1 - 13.5 fL [facility] Platelets (Bld) [#/Vol] 70 10*3/uL Low [facility] RBC (Bld) [#/Vol] 3.51 10*6/uL Low 3.95 - 5.11 m/uL [facility] RBC (Bld) [#/Vol] NOT REPORTED [facility] Segmented neutrophils/100 WBC (Bld) 60 % 36 - 65 % [facility] Segs Absolute 2.60 [facility] WBC (Bld) [#/Vol] 4.3 10*3/uL [facility] WBC (Bld) [#/Vol] NOT REPORTED [facility] CBC with Diffon 09-30-2021 Abs. Basophil <0.03 Normal 0.00-0.20 [facility] Comment on above: Performed By: #### V BG #### [address] [address] Receiver Setter: Brandan Ugalde MD Abs.Imm.Granulocyte 0.05 k/uL Normal 0.00-0.30 [facility] Comment on above: Performed By: #### V BG #### [address] [address] Receiver Setter: Brandan Ugalde MD Abs.Neutrophil (Seg) 2.60 k/uL Normal 1.50-8.10 [facility] Comment on above: Performed By: #### V BG #### [address] [address] Receiver Setter: Brandan Ugalde MD Basophils/100 WBC (Bld) 0 % Normal 0-2 [facility] Comment on above: Performed By: #### V BG #### [address] [address] Receiver Setter: Brandan Ugalde MD Eosinophils (Bld) [#/Vol] 0.03 10*3/uL Normal 0.00-0.44 [facility] Comment on above: Performed By: #### V BG #### [address] [address] Receiver Setter: Brandan Ugalde MD Eosinophils/100 WBC (Bld) 1 % Normal 1-4 [facility] Comment on above: Performed By: #### V BG #### [address] [address] Receiver Setter: Brandan Ugalde MD Erythrocyte distribution width (RBC) [Ratio] 14.2 % Normal 11.8-14.4 [facility] Comment on above: Performed By: #### V BG #### [address] [address] Receiver Setter: Brandan Ugalde MD Hematocrit (Bld) [Volume fraction] 30.9 % Low 36.3-47.1 [facility] Comment on above: Performed By: #### V BG #### [place] [address] Receiver Setter: Brandan Ugalde MD Hemoglobin (Bld) [Mass/Vol] 10.2 g/dL Low 11.9-15.1 [facility] Comment on above: Performed By: #### V BG #### [place] [address] Receiver Setter: Brandan Ugalde MD Immature granulocytes/100 WBC (Bld) 1 % High 0 [facility] Comment on above: Performed By: #### V BG #### [place] [address] Receiver Setter: Brandan Ugalde MD Lymphocytes (Bld) [#/Vol] 1.19 10*3/uL Normal 1.10-3.70 [facility] Comment on above: Performed By: #### V BG #### [address] [address] Receiver Setter: Brandan Ugalde MD Lymphocytes/100 WBC (Bld) 28 % Normal 24-43 [facility] Comment on above: Performed By: #### V BG #### [address] [address] Receiver Setter: Brandan Ugalde MD MCH (RBC) [Entitic mass] 29.1 pg Normal 25.2-33.5 [facility] Comment on above: Performed By: #### V BG #### [address] [address] Receiver Setter: Brandan Ugalde MD MCHC (RBC) [Mass/Vol] 33.0 g/dL Normal 28.4-34.8 [facility] Comment on above: Performed By: #### V BG #### [address] [address] Receiver Setter: Brandan Ugalde MD MCV (RBC) [Entitic vol] 88.0 fL Normal 82.6-102.9 [facility] Comment on above: Performed By: #### V BG #### [address] [address] Receiver Setter: Brandan Ugalde MD Monocytes (Bld) [#/Vol] 0.43 10*3/uL Normal 0.10-1.20 [facility] Comment on above: Performed By: #### V BG #### [address] [address] Receiver Setter: Brandan Ugalde MD Monocytes/100 WBC (Bld) 10 % Normal 3-12 [facility] Comment on above: Performed By: #### V BG #### [address] [address] Receiver Setter: Brandan Ugalde MD Neutrophil (Seg) 60 % Normal 36-65 [facility] Comment on above: Performed By: #### V BG #### [address] [address] Receiver Setter: Brandan Ugalde MD NRBC Automated 0.0 per 100 WBC Normal 0.0 [facility] Comment on above: Performed By: #### V BG #### [address] [address] Receiver Setter: Brandan Ugalde MD Platelet mean volume (Bld) [Entitic vol] 8.5 fL Normal 8.1-13.5 [facility] Comment on above: Performed By: #### V BG #### [address] [address] Receiver Setter: Brandan Ugalde MD Platelets (Bld) [#/Vol] 70 10*3/uL Low 138-453 [facility] Comment on above: Performed By: #### V BG #### [address] [address] Receiver Setter: Brandan Ugalde MD RBC (Bld) [#/Vol] 3.51 10*6/uL Low 3.95-5.11 [facility] Comment on above: Performed By: #### V BG #### [address] [address] Receiver Setter: Brandan Ugalde MD WBC (Bld) [#/Vol] 4.3 10*3/uL Normal 3.5-11.3 [facility] Comment on above: Performed By: #### V BG #### [address] [address] Receiver Setter: Brandan Ugalde MD Auto Diff Performed NOT REPORTED Normal [facility] Comment on above: Performed By: #### V BG #### [address] [address] Receiver Setter: Brandan Ugalde MD Platelet Comment NOT REPORTED Normal [facility] Comment on above: Performed By: #### V BG #### [address] [address] Receiver Setter: Brandan Ugalde MD RBC morphology finding Nom (Bld) NOT REPORTED Normal [facility] Comment on above: Performed By: #### V BG #### [address], [place] [id number] Receiver Setter: Brandan Ugalde MD WBC Morphology NOT REPORTED Normal [facility] Comment on above: Performed By: #### V BG #### [facility] [address] [place] [address] Receiver Setter: Brandan Ugalde MD Cult,Urineon 09-30-2021 Cult,Urine Specimen Description .CLEAN CATCH URINE Special Requests NOT REPORTED Culture YEAST, NOT SHENG ALBICANS OR SHENG DUBLINIENSIS 10 to 50,000 CFU/ML YEAST, NOT SHENG ALBICANS OR SHENG DUBLINIENSIS 10 to 50,000 CFU/ML DIFFERENT COLONY MORPHOLOGY Report Status FINAL 09/30/2021 Abnormal [facility] Comment on above: Performed By: #### V BG #### [facility] [place] [address] Receiver Setter: Brandan Ugalde MD Culture, Urineon 09-30-2021 Bacteria identified Cx Nom (U) YEAST, NOT SHENG ALBICANS OR SHENG DUBLINIENSIS 10 to 50,000 CFU/ML Abnormal [facility] Bacteria identified Cx Nom (U) YEAST, NOT SHENG ALBICANS OR SHENG DUBLINIENSIS 10 to 50,000 CFU/ML DIFFERENT COLONY MORPHOLOGY Abnormal [facility] Interpretation and review of laboratory results Abnormal [facility] Special Requests NOT REPORTED [facility] Specimen Description .CLEAN CATCH URINE [facility] Electrolyte Panelon 09-30-19 Anion gap [Moles/Vol] 11 mmol/L 9 - 17 mmol/L [facility] Chloride [Moles/Vol] 115 mmol/L High 98 - 107 mmol/L [facility] CO2 [Moles/Vol] 16 mmol/L Low 20 - 31 mmol/L [facility] Interpretation and review of laboratory results Abnormal [facility] Potassium [Moles/Vol] 3.5 mmol/L Low 3.7 - 5.3 mmol/L [facility] Sodium [Moles/Vol] 142 mmol/L 135 - 144 mmol/L [facility] Electrolyteson 09-30-2021 Anion gap [Moles/Vol] 11 mmol/L Normal 9-17 [facility] Comment on above: Performed By: #### V BG #### [facility] [address] [place] [address] Receiver Setter: Brandan Ugalde MD Chloride [Moles/Vol] 115 mmol/L High 98-107 [facility] Comment on above: Performed By: #### V BG #### [facility] [employer] [address] [place] [address] Receiver Setter: Brandan Ugalde MD CO2 [Moles/Vol] 16 mmol/L Low 20-31 [facility] Comment on above: Performed By: #### V BG #### [address] [address] Receiver Setter: Brandan Ugalde MD Potassium [Moles/Vol] 3.5 mmol/L Low 3.7-5.3 [facility] Comment on above: Performed By: #### V BG #### [address] [address] Receiver Setter: Brandan Ugalde MD Sodium [Moles/Vol] 142 mmol/L Normal 135-144 [facility] Comment on above: Performed By: #### V BG #### [facility] [employer] [address] [place] [address] Receiver Setter: Brandan Ugalde MD Hemoglobin A1Con 09-30-2021 Glucose [Mass/Vol] 390 mg/dL Normal [facility] Comment on above: Result Comment: The ADA and AACC recommend providing the estimated average glucose result to permit better patient understanding of their HBA1c result. Performed By: #### V BG #### [facility] [employer] [address] [place] [address] Receiver Setter: Brandan Ugalde MD HbA1c (Bld) [Mass fraction] 15.2 % High 4.0-6.0 [facility] Comment on above: Performed By: #### V BG #### [address] [address] Receiver Setter: Brandan Ugalde MD Glucose [Mass/Vol] 390 mg/dL [facility] Comment on above: The ADA and AACC rec ommend providing the estimated average glucose result to permit better patient understanding of their HBA1c result. HbA1c (Bld) [Mass fraction] 15.2 % High 4.0 - 6.0 % [facility] Interpretation and review of laboratory results Abnormal [facility] MAGNESIUMon 09-30-2021 Magnesium [Mass/Vol] 1.8 mg/dL 1.6 - 2.6 mg/dL [facility] Magnesiumon 09-30-2021 Magnesium [Mass/Vol] 1.8 mg/dL Normal 1.6-2.6 [facility] Comment on above: Performed By: #### V BG #### [facility] [place] [address] Receiver Setter: Brandan Ugalde MD No Panel Informationon 09-30 [facility] POC Glucose Fingerstickon Glucose [Mass/Vol] 150 mg/dL High 65 - 105 mg/dL [facility] Interpretation and review of laboratory results Abnormal [facility] Glucose [Mass/Vol] 177 mg/dL High 65 - 105 mg/dL [facility] Interpretation and review of laboratory results Abnormal [facility] Glucose [Mass/Vol] 148 mg/dL High 65 - 105 mg/dL [facility] Interpretation and review of laboratory results Abnormal [facility] Glucose [Mass/Vol] 210 mg/dL High 65 - 105 mg/dL [facility] Interpretation and review of laboratory results Abnormal [facility] SPECIMEN REJECTIONon 022 - NOT REPORTED [facility] Ordered Test CDP [facility] Reason for Rejection Unable to perform testing: Specimen clotted. [facility] Comment on above: GEORGINA MONTERO NOTIFIED Specimen source Nom (Unsp spec) .BLOOD [facility] Specimen Rejectionon 022 Reason for rejection Unable to perform testing: Specimen clotted. Normal [facility] Comment on above: Result Comment: GEORGINA MEDINA NOTIFIED Performed By: #### V BG #### [facility] [place] [address] Receiver Setter: Brandan Ugalde MD Source of sample .BLOOD Normal [facility] Comment on above: Performed By: #### V BG #### [facility] [address] [place] [address] Receiver Setter: Brandan Ugalde MD Test ordered CDP Normal [facility] Comment on above: Performed By: #### V BG #### [address] [address] Receiver Setter: Brandan Ugalde MD ----- NOT REPORTED Normal [facility] Comment on above: Performed By: #### V BG #### [address] [address] Receiver Setter: Brandan Ugalde MD Urinalysis w/ Microon 2021 Amorphous sediment LM Ql (Urine sed) NOT REPORTED Normal NONE [facility] Comment on above: Performed By: #### U AMIC ####[address] [address] Lab Director: Brandan Ugalde MD Bacteria NOT REPORTED Normal [facility] Comment on above: Performed By: #### U AMIC ####[address] [address] Lab Director: Brandan Ugalde MD Crystals LM Nom (Urine sed) NOT REPORTED Normal [facility] Comment on above: Performed By: #### U AMIC ####[address] [address] Lab Director: Brandan Ugalde MD Epithelial, Renal NOT REPORTED Normal 0 [facility] Comment on above: Performed By: #### U AMIC ####[address] [place] [address] Lab Director: Brandan Ugalde MD Mucus Strands NOT REPORTED Normal [facility] Comment on above: Performed By: #### U AMIC ####[address] [place] [address] Lab Director: Brandan Ugalde MD Other Observations NOT REPORTED Normal [facility] Comment on above: Performed By: #### U AMIC ####[id number] [place] [address] Lab Director: Brandan Ugalde MD Trichomonas NOT REPORTED Normal NONE [facility] Comment on above: Performed By: #### U AMIC ####[address] [address] Lab Director: Brandan Ugalde MD Venous Blood Gaseson 022 Body Temp. 37.0 Normal [facility] Comment on above: Performed By: #### V BG #### [address] [address] Receiver Setter: Brandan Ugalde MD Carboxy Hgb 1.5 % Normal 0-5 [facility] Comment on above: Result Comment: Reference Range: Non-Smokers 0-2% Average Smoker 2-4% Heavy Smoker <10% Performed By: #### V BG #### [address] [address] Receiver Setter: Brandan Ugalde MD FIO2 INFORMATION NOT PROVIDED Normal [facility] Comment on above: Performed By: #### V BG #### [facility] [employer] [facility] [place] [address] Receiver Setter: Brandan Ugalde MD HCO3 (Bld) [Moles/Vol] 17.6 mmol/L Low 24-30 [facility] Comment on above: Performed By: #### V BG #### [address] [address] Receiver Setter: Brandan Ugalde MD Negative Base Excess 8.6 mmol/L High 0.0-2.0 [facility] Comment on above: Performed By: #### V BG #### [address] [address] Receiver Setter: Brandan Ugalde MD Oxygen (Bld) [Partial pressure] 26.8 mm[Hg] Low 30-50 [facility] Comment on above: Performed By: #### V BG #### [address] [address] Receiver Setter: Brandan Ugalde MD Oxygen saturation in Blood 55.1 % Low 60.0-85.0 [facility] Comment on above: Performed By: #### V BG #### [address] [address] Receiver Setter: Brandan Ugalde MD pCO2 41.1 Normal 39-55 [facility] Comment on above: Performed By: #### V BG #### [address] [address] Receiver Setter: Brandan Ugalde MD pH (Bld) 7.255 [pH] Low 7.320-7.420 [facility] Comment on above: Performed By: #### V BG #### [address] [address] Receiver Setter: Brandan Ugalde MD Bibi Test NOT REPORTED Normal [facility] Comment on above: Performed By: #### V BG #### [address] [address] Receiver Setter: Brandan Ugalde MD Methemoglobin NOT REPORTED Normal 0.0-1.5 [facility] Comment on above: Performed By: #### V BG #### [address] [address] Receiver Setter: Brandan Ugalde MD Mode NOT REPORTED Normal [facility] Comment on above: Performed By: #### V BG #### [address] [address] Receiver Setter: Brandan Ugalde MD Notification Time NOT REPORTED Normal [facility] Comment on above: Performed By: #### V BG #### [address] [address] Receiver Setter: Brandan Ugalde MD Notification: NOT REPORTED Normal [facility] Comment on above: Performed By: #### V BG #### [address] [address] Receiver Setter: Brandan Ugalde MD O2 Device/Flow/% NOT REPORTED Normal [facility] Comment on above: Performed By: #### V BG #### [address] [address] Receiver Setter: Brandan Ugalde MD Oxyhemoglobin NOT REPORTED Normal 95.0-98.0 [facility] Comment on above: Performed By: #### V BG #### [address] [address] Receiver Setter: Brandan Ugalde MD Pco2 Adj'd for Temp. NOT REPORTED Normal 39-55 [facility] Comment on above: Performed By: #### V BG #### [address] [address] Receiver Setter: Brandan Ugalde MD PEEP/CPAP NOT REPORTED Normal [facility] Comment on above: Performed By: #### V BG #### [address] [address] Receiver Setter: Brandan Ugalde MD pH Adjst'd for Temp. NOT REPORTED Normal 7.320-7.420 [facility] Comment on above: Performed By: #### V BG #### [address] [address] Receiver Setter: Brandan Ugalde MD pO2 Adj'd for Temp. NOT REPORTED Normal 30-50 [facility] Comment on above: Performed By: #### V BG #### [address] [address] Receiver Setter: Brandan Ugalde MD Positive Base Excess NOT REPORTED Normal 0.0-2.0 [facility] Comment on above: Performed By: #### V BG #### [address] [address] Receiver Setter: Brandan Ugalde MD PSV NOT REPORTED Normal [facility] Comment on above: Performed By: #### V BG #### [address] [address] Receiver Setter: Brandan Ugalde MD Pt. Position NOT REPORTED Normal [facility] Comment on above: Performed By: #### V BG #### [address] [address] Receiver Setter: Brandan Ugalde MD Respiratory Rate NOT REPORTED Normal [facility] Comment on above: Performed By: #### V BG #### [address] [address] Receiver Setter: Brandan Ugalde MD Set Rate NOT REPORTED Normal [facility] Comment on above: Performed By: #### V BG #### [facility] [employer] [address] [place] [address] Receiver Setter: Brandan Ugalde MD Site Drawn NOT REPORTED Normal [facility] Comment on above: Performed By: #### V BG #### [facility] [employer] [address] [place] [address] Receiver Setter: Brandan Ugalde MD Text for Respiratory NOT REPORTED Normal [facility] Comment on above: Performed By: #### V BG #### [facility] [address] [place] [address] Receiver Setter: Brandan Ugalde MD Total Hb NOT REPORTED Normal 12.0-16.0 [facility] Comment on above: Performed By: #### V BG #### [facility] [address] [place] [address] Receiver Setter: Brandan Ugalde MD Total Rate NOT REPORTED Normal [facility] Comment on above: Performed By: #### V BG #### [facility] [address] [place] [address] Receiver Setter: Brandan Ugalde MD VT NOT REPORTED Normal [facility] Comment on above: Performed By: #### V BG #### [facility] [address] [place], [place] [id number] Receiver Setter: Brandan Ugalde MD Basic Metabolic Panel 09-05 Anion gap [Moles/Vol] 11 mmol/L 9 - 17 mmol/L [facility] Calcium [Mass/Vol] 7.8 mg/dL Low 8.6 - 10.4 mg/dL [facility] Chloride [Moles/Vol] 106 mmol/L 98 - 107 mmol/L [facility] CO2 [Moles/Vol] 12 mmol/L Low 20 - 31 mmol/L [facility] Creatinine [Mass/Vol] 2.3 mg/dL High 0.50 - 0.90 mg/dL [facility] GFR 28 mL/min Low >60 [employer] GFR Non- 23 mL/min Low >60 [facility] GFR/1.73 sq M.predicted MDRD (S/P/Bld) [Vol rate/Area] [facility] Comment on above: Average GFR for 40-4 9 years old: 99 mL/min/1.73sq m Chronic Kidney Disease: <60 mL/min/1.73sq m Kidney failure: <15 mL/min/1.73sq m eGFR calculated using average adult body mass. Additional eGFR calculator available at: http://www.BumpTop.com/multiple_crcl_2012.htm GFR/1.73 sq M.predicted MDRD (S/P/Bld) [Vol rate/Area] NOT REPORTED [facility] Glucose [Mass/Vol] 301 mg/dL High 70 - 99 mg/dL [facility] Interpretation and review of laboratory results Abnormal [facility] Potassium [Moles/Vol] 4.1 mmol/L 3.7 - 5.3 mmol/L [facility] Comment on above: SPECIMEN SLIGHTLY HE MOLYZED, RESULTS MAY BE ADVERSELY AFFECTED. Sodium [Moles/Vol] 129 mmol/L Low 135 - 144 mmol/L [facility] Urea nitrogen (BldV) [Mass/Vol] 32 mg/dL High 6 - 20 mg/dL [facility] Urea nitrogen/Creatinine (Bld) [Mass ratio] NOT REPORTED [facility] Anion gap [Moles/Vol] 11 mmol/L 9 - 17 mmol/L [facility] Calcium [Mass/Vol] 8.0 mg/dL Low 8.6 - 10.4 mg/dL [facility] Chloride [Moles/Vol] 110 mmol/L High 98 - 107 mmol/L [facility] CO2 [Moles/Vol] 12 mmol/L Low 20 - 31 mmol/L [facility] Creatinine [Mass/Vol] 2.29 mg/dL High 0.50 - 0.90 mg/dL [facility] GFR 28 mL/min Low >60 [employer] GFR Non- 23 mL/min Low >60 [facility] GFR/1.73 sq M.predicted MDRD (S/P/Bld) [Vol rate/Area] [facility] Comment on above: Average GFR for 40-4 9 years old: 99 mL/min/1.73sq m Chronic Kidney Disease: <60 mL/min/1.73sq m Kidney failure: <15 mL/min/1.73sq m eGFR calculated using average adult body mass. Additional eGFR calculator available at: http://www.BumpTop.com/multiple_crcl_2012.htm GFR/1.73 sq M.predicted MDRD (S/P/Bld) [Vol rate/Area] NOT REPORTED [facility] Glucose [Mass/Vol] 217 mg/dL High 70 - 99 mg/dL [facility] Interpretation and review of laboratory results Abnormal [facility] Potassium [Moles/Vol] 3.4 mmol/L Low 3.7 - 5.3 mmol/L [facility] Sodium [Moles/Vol] 133 mmol/L Low 135 - 144 mmol/L [facility] Urea nitrogen (BldV) [Mass/Vol] 32 mg/dL High 6 - 20 mg/dL [facility] Urea nitrogen/Creatinine (Bld) [Mass ratio] NOT REPORTED [facility] Anion gap [Moles/Vol] 7 mmol/L Low 9 - 17 mmol/L [facility] Calcium [Mass/Vol] 8.0 mg/dL Low 8.6 - 10.4 mg/dL [facility] Chloride [Moles/Vol] 113 mmol/L High 98 - 107 mmol/L [facility] CO2 [Moles/Vol] 13 mmol/L Low 20 - 31 mmol/L [facility] Creatinine [Mass/Vol] 2.39 mg/dL High 0.50 - 0.90 mg/dL [facility] GFR 27 mL/min Low >60 [facility] GFR Non- 22 mL/min Low >60 [facility] GFR/1.73 sq M.predicted MDRD (S/P/Bld) [Vol rate/Area] [facility] Comment on above: Average GFR for 40-4 9 years old: 99 mL/min/1.73sq m Chronic Kidney Disease: <60 mL/min/1.73sq m Kidney failure: <15 mL/min/1.73sq m eGFR calculated using average adult body mass. Additional eGFR calculator available at: http://www.Jimmy Fairly/multiple_crcl_2012.htm GFR/1.73 sq M.predicted MDRD (S/P/Bld) [Vol rate/Area] NOT REPORTED [facility] Glucose [Mass/Vol] 127 mg/dL High 70 - 99 mg/dL [facility] Potassium [Moles/Vol] 3.7 mmol/L 3.7 - 5.3 mmol/L [facility] Comment on above: SPECIMEN SLIGHTLY HE MOLYZED, RESULTS MAY BE ADVERSELY AFFECTED. Sodium [Moles/Vol] 133 mmol/L Low 135 - 144 mmol/L [facility] Urea nitrogen (BldV) [Mass/Vol] 32 mg/dL High 6 - 20 mg/dL [facility] Urea nitrogen/Creatinine (Bld) [Mass ratio] NOT REPORTED [facility] Basic Metabolic Profon 09-29 (cont.) Normal [facility] Comment on above: Result Comment: Aver age GFR for 40-49 years old: 99 mL/min/1.73sq m Chronic Kidney Disease: <60 mL/min/1.73sq m Kidney failure: <15 mL/min/1.73sq m eGFR calculated using average adult body mass. Additional eGFR calculator available at: http://www.Jimmy Fairly/multiple_crcl_2011.htm Performed By: #### C ISABELLA IPF, BMP #### [facility] [address] [place] [address] Receiver Setter: Brandan Ugalde MD Anion gap [Moles/Vol] 11 mmol/L Normal 9-17 [facility] Comment on above: Performed By: #### C ISABELLA IPF, BMP #### [facility] [address] [place] [address] Receiver Setter: Brandan Ugalde MD Calcium [Mass/Vol] 7.8 mg/dL Low 8.6-10.4 [facility] Comment on above: Performed By: #### C ISABELLA IPF, BMP #### [facility] [address] [place] [address] Receiver Setter: Brandan Ugalde MD Chloride [Moles/Vol] 106 mmol/L Normal 98-107 [facility] Comment on above: Performed By: #### C ISABELLA IPF, BMP #### [facility] [address] [place] [address] Receiver Setter: Brandan Ugalde MD CO2 [Moles/Vol] 12 mmol/L Low 20-31 [facility] Comment on above: Performed By: #### C ISABELLA IPF, BMP #### [facility] [address] [place] [address] Receiver Setter: Brandan Ugalde MD Creatinine [Mass/Vol] 2.30 mg/dL High 0.50-0.90 [facility] Comment on above: Performed By: #### C DP, IPF, BMP #### [facility] [address] [place] [address] Receiver Setter: Brandan Ugalde MD GFR, Amer 28 mL/min Low >60 [facility] Comment on above: Performed By: #### C DP, IPF, BMP #### [facility] [address] [place] [address] Receiver Setter: Brandan Ugalde MD GFR,non Amer 23 mL/min Low >60 [facility] Comment on above: Performed By: #### C DP, IPF, BMP #### [facility] [employer] [address] [place] [address] Receiver Setter: Brandan Ugalde MD Glucose [Mass/Vol] 301 mg/dL High 70-99 [facility] Comment on above: Performed By: #### C DP, IPF, BMP #### [facility] [address] [place] [address] Receiver Setter: Brandan Ugalde MD Potassium [Moles/Vol] 4.1 mmol/L Normal 3.7-5.3 [facility] Comment on above: Result Comment: SPEC IMEN SLIGHTLY HEMOLYZED, RESULTS MAY BE ADVERSELY AFFECTED. Performed By: #### C DP, IPF, BMP #### [facility] [address] [place] [address] Receiver Setter: Brandan Ugalde MD Sodium [Moles/Vol] 129 mmol/L Low 135-144 [facility] Comment on above: Performed By: #### C DP, IPF, BMP #### [facility] [employer] [address] [place] [address] Receiver Setter: Brandan Ugalde MD Urea nitrogen [Mass/Vol] 32 mg/dL High 6-20 [facility] Comment on above: Performed By: #### C DP, IPF, BMP #### [facility] [employer] [address] [place] [address] Receiver Setter: Brandan Ugalde MD BUN/CRE Ratio NOT REPORTED Normal -20 [facility] Comment on above: Performed By: #### C EMILIO MASON, BMP #### [address] [address] Receiver Setter: Brandan Ugalde MD Staging: NOT REPORTED Normal [facility] Comment on above: Performed By: #### C EMILIO MASON, BMP #### [facility] [employer] [address] [place] [address] Receiver Setter: Brandan Ugalde MD (cont.) Normal [facility] Comment on above: Result Comment: Aver age GFR for 40-49 years old: 99 mL/min/1.73sq m Chronic Kidney Disease: <60 mL/min/1.73sq m Kidney failure: <15 mL/min/1.73sq m eGFR calculated using average adult body mass. Additional eGFR calculator available at: http://www.BumpTop.BeanJockey/multiple_crcl_2012.htm Performed By: #### C EMILIO MASON, BMP #### [address] [address] Receiver Setter: Brandan Ugalde MD Anion gap [Moles/Vol] 11 mmol/L Normal 9-17 [facility] Comment on above: Performed By: #### C EMILIO MASON, BMP #### [address] [address] Receiver Setter: Brandan Ugalde MD Calcium [Mass/Vol] 8.0 mg/dL Low 8.6-10.4 [facility] Comment on above: Performed By: #### C EMILIO MASON, BMP #### [facility] [employer] [address] [place] [address] Receiver Setter: Brandan Ugalde MD Chloride [Moles/Vol] 110 mmol/L High 98-107 [facility] Comment on above: Performed By: #### C DP, IPF, BMP #### [facility] [address] [place] [address] Receiver Setter: Brandan Ugalde MD CO2 [Moles/Vol] 12 mmol/L Low 20-31 [facility] Comment on above: Performed By: #### C DP, IPF, BMP #### [facility] [address] [place] [address] Receiver Setter: Brandan Ugalde MD Creatinine [Mass/Vol] 2.29 mg/dL High 0.50-0.90 [facility] Comment on above: Performed By: #### C DP, IPF, BMP #### [facility] [address] [place] [address] Receiver Setter: Brandan Ugalde MD GFR, Amer 28 mL/min Low >60 [facility] Comment on above: Performed By: #### C DP, IPF, BMP #### [facility] [address] [place] [address] Receiver Setter: Brandan Ugalde MD GFR,non Amer 23 mL/min Low >60 [facility] Comment on above: Performed By: #### C DP, IPF, BMP #### [facility] [address] [place] [address] Receiver Setter: Brandan Ugalde MD Glucose [Mass/Vol] 217 mg/dL High 70-99 [facility] Comment on above: Performed By: #### C DP, IPF, BMP #### [facility] [address] [place] [address] Receiver Setter: Brandan Ugalde MD Potassium [Moles/Vol] 3.4 mmol/L Low 3.7-5.3 [facility] Comment on above: Performed By: #### C DP, IPF, BMP #### [facility] [address] [place] [address] Receiver Setter: Brandan Ugalde MD Sodium [Moles/Vol] 133 mmol/L Low 135-144 [facility] Comment on above: Performed By: #### C DP IPF, BMP #### [facility] [employer] [address] [place] [address] Receiver Setter: Brandan Ugalde MD Urea nitrogen [Mass/Vol] 32 mg/dL High 6-20 [facility] Comment on above: Performed By: #### C DP, IPF, BMP #### [facility] [address] [place] [address] Receiver Setter: Brandan Ugalde MD BUN/CRE Ratio NOT REPORTED Normal -20 [facility] Comment on above: Performed By: #### C ISABELLA IPF, BMP #### [facility] [employer] [address] [place] [address] Receiver Setter: rBandan Ugalde MD Staging: NOT REPORTED Normal [facility] Comment on above: Performed By: #### C DP IPF, BMP #### [address] [address] Receiver Setter: Brandan Ugalde MD (cont.) [facility] Comment on above: Result Comment: Aver age GFR for 40-49 years old: 99 mL/min/1.73sq m Chronic Kidney Disease: <60 mL/min/1.73sq m Kidney failure: <15 mL/min/1.73sq m eGFR calculated using average adult body mass. Additional eGFR calculator available at: http://www.BumpTop.com/multiple_crcl_2012.htm Performed By: #### C DP IPF, BMP #### [facility] [employer] [address] [place] [address] Receiver Setter: Brandan Ugalde MD Anion gap [Moles/Vol] 7 mmol/L Low 9-17 [facility] Comment on above: Performed By: #### C DP, IPF, BMP #### [address] [address] Receiver Setter: Brandan Ugalde MD Calcium [Mass/Vol] 8.0 mg/dL Low 8.6-10.4 [facility] Comment on above: Performed By: #### C DP, IPF, BMP #### [facility] [address] [place] [address] Receiver Setter: Brandan Ugalde MD Chloride [Moles/Vol] 113 mmol/L High 98-107 [facility] Comment on above: Performed By: #### C DP, IPF, BMP #### [facility] [address] [place] [address] Receiver Setter: Brandan Ugalde MD CO2 [Moles/Vol] 13 mmol/L Low 20-31 [facility] Comment on above: Performed By: #### C DP, IPF, BMP #### [facility] [address] [place] [address] Receiver Setter: Brandan Ugalde MD Creatinine [Mass/Vol] 2.39 mg/dL High 0.50-0.90 [facility] Comment on above: Performed By: #### C DP, IPF, BMP #### [facility] [address] [place] [address] Receiver Setter: Brandan Ugalde MD GFR, Amer 27 mL/min Low >60 [facility] Comment on above: Performed By: #### C DP, IPF, BMP #### [facility] [address] [place] [address] Receiver Setter: Brandan Ugalde MD GFR,non Amer 22 mL/min Low >60 [facility] Comment on above: Performed By: #### C DP, IPF, BMP #### [facility] [address] [place] [address] Receiver Setter: Brandan Ugalde MD Glucose [Mass/Vol] 127 mg/dL High 70-99 [facility] Comment on above: Performed By: #### C DP, IPF, BMP #### [facility] [address] [place] [address] Receiver Setter: Brandan Ugalde MD Potassium [Moles/Vol] 3.7 mmol/L Normal 3.7-5.3 [facility] Comment on above: Result Comment: SPEC IMEN SLIGHTLY HEMOLYZED, RESULTS MAY BE ADVERSELY AFFECTED. Performed By: #### C DP, IPF, BMP #### [facility] [address] [place] [address] Receiver Setter: Brandan Ugalde MD Sodium [Moles/Vol] 133 mmol/L Low 135-144 [facility] Comment on above: Performed By: #### C DP, IPF, BMP #### [facility] [address] [place] [address] Receiver Setter: Brandan Ugalde MD Urea nitrogen [Mass/Vol] 32 mg/dL High 6-20 [facility] Comment on above: Performed By: #### C DP, IPF, BMP #### [facility] [address] [place] [address] Receiver Setter: Brandan Ugalde MD BUN/CRE Ratio NOT REPORTED Normal 9-20 [facility] Comment on above: Performed By: #### C DP, IPF, BMP #### [facility] [address] [place] [address] Receiver Setter: Brandan Ugalde MD Staging: NOT REPORTED Normal [facility] Comment on above: Performed By: #### C DP, IPF, BMP #### [facility] [address] [place] [address] Receiver Setter: Brandan Ugalde MD (cont.) Normal [facility] Comment on above: Result Comment: Aver age GFR for 40-49 years old: 99 mL/min/1.73sq m Chronic Kidney Disease: <60 mL/min/1.73sq m Kidney failure: <15 mL/min/1.73sq m eGFR calculated using average adult body mass. Additional eGFR calculator available at: http://www.BumpTop.BeanJockey/multiple_crcl_2012.htm Performed By: #### C ISABELLA IPF, BMP #### [facility] [address] [place] [address] Receiver Setter: Brandan Ugalde MD Anion gap [Moles/Vol] 6 mmol/L Low 9-17 [facility] Comment on above: Performed By: #### C ISABELLA IPF, BMP #### [facility] [employer] [address] [place] [address] Receiver Setter: Brandan Ugalde MD Calcium [Mass/Vol] 8.5 mg/dL Low 8.6-10.4 [facility] Comment on above: Performed By: #### C ISABELLA IPF, BMP #### [facility] [employer] [address] [place] [address] Receiver Setter: Brandan Ugalde MD Chloride [Moles/Vol] 110 mmol/L High 98-107 [facility] Comment on above: Performed By: #### C ISABELLA IPF, BMP #### [facility] [employer] [address] [place] [address] Receiver Setter: Brandan Ugalde MD CO2 [Moles/Vol] 15 mmol/L Low 20-31 [facility] Comment on above: Performed By: #### C DP IPF, BMP #### [facility] [address] [place] [address] Receiver Setter: Brandan Ugalde MD Creatinine [Mass/Vol] 2.24 mg/dL High 0.50-0.90 [facility] Comment on above: Performed By: #### C DP IPF, BMP #### [facility] [address] [place] [address] Receiver Setter: Brandan Ugalde MD GFR, Amer 29 mL/min Low >60 [facility] Comment on above: Performed By: #### C DP IPF, BMP #### [facility] [address] [place] [address] Receiver Setter: Brandan Ugalde MD GFR,non Amer 24 mL/min Low >60 [facility] Comment on above: Performed By: #### C DP, IPF, BMP #### [facility] [address] [place] [address] Receiver Setter: Brandan Ugalde MD Glucose [Mass/Vol] 156 mg/dL High 70-99 [facility] Comment on above: Performed By: #### C ISABELLA IPF, BMP #### [facility] [employer] [address] [place] [address] Receiver Setter: Brandan Ugalde MD Potassium [Moles/Vol] 3.4 mmol/L Low 3.7-5.3 [facility] Comment on above: Performed By: #### C ISABELLA IPF, BMP #### [facility] [employer] [address] [place] [address] Receiver Setter: Brandan Ugalde MD Sodium [Moles/Vol] 131 mmol/L Low 135-144 [facility] Comment on above: Performed By: #### C ISABELLA IPF, BMP #### [facility] [employer] [address] [place] [address] Receiver Setter: Brandan Ugalde MD Urea nitrogen [Mass/Vol] 32 mg/dL High 6-20 [facility] Comment on above: Performed By: #### C DP IPF, BMP #### [facility] [employer] [address] [place] [address] Receiver Setter: Brandan Ugalde MD Blood Gas, Venouson 09-29-19 22 Bibi Test NOT REPORTED [facility] Carboxyhemoglobin 1.2 % 0 - 5 % [facility] Comment on above: Reference Range: Non-Smokers 0-2% Average Smoker 2-4% Heavy Smoker <10% FIO2 INFORMATION NOT PROVIDED [facility] HCO3 (Bld) [Moles/Vol] 15.2 mmol/L Low 24 - 30 mmol/L [facility] Interpretation and review of laboratory results Abnormal [facility] Methemoglobin NOT REPORTED 0.0 - 1.5 % [facility] alth Mode NOT REPORTED [facility] Negative Base Excess, Earnest 10.6 mmol/L High 0.0 - 2.0 mmol/L [facility] NOTIFICATION NOT REPORTED [facility] NOTIFICATION TIME NOT REPORTED [facility] O2 Device/Flow/% NOT REPORTED [facility] Oxygen saturation in Blood 80.9 % 60.0 - 85.0 % [facility] Oxyhemoglobin NOT REPORTED 95.0 - 98.0 % [facility] pCO2, Earnest 34.9 Low [facility] pCO2, Earnest, Temp Adj NOT REPORTED [facility] Peep/Cpap NOT REPORTED [facility] pH, Earnest 7.261 Low [facility] pH, Earnest, Temp Adj NOT REPORTED [facility] pO2, Earnest 39.5 [facility] pO2, Earnest, Temp Adj NOT REPORTED [facility] Positive Base Excess, Earnest NOT REPORTED 0.0 - 2.0 mmol/L [facility] PSV NOT REPORTED [facility] Pt Temp 37.0 [facility] Pt. Position NOT REPORTED [facility] Respiratory Rate NOT REPORTED [facility] Sample Site NOT REPORTED [facility] h Set Rate NOT REPORTED [facility] Text for Respiratory NOT REPORTED [facility] Total Hb NOT REPORTED 12.0 - 16.0 g/dl [facility] Total Rate NOT REPORTED [facility] [place] NOT REPORTED [facility] CBC auto differentialon 09-05 Absolute Eos # <0.03 [facility] th Absolute Immature Granulocyte 0.07 [facility] Absolute Lymph # 1.85 [facility] alth Absolute Wallace # 0.79 [facility] Basophils (Bld) [#/Vol] 10*3/uL [facility] Basophils/100 WBC (Bld) 0 % 0 - 2 % [facility] Differential Type NOT REPORTED [facility] Eosinophils/100 WBC (Bld) 0 % Low 1 - 4 % [facility] Hematocrit (Bld) [Volume fraction] 34.1 % Low 36.3 - 47.1 % [facility] Hemoglobin.gastroint estinal spec 1 Ql (Stl) 10.8 g/dL Low 11.9 - 15.1 g/dL [facility] Immature granulocytes/100 WBC (Bld) 1 % High 0 [facility] Interpretation and review of laboratory results Abnormal [facility] Lymphocytes/100 WBC (Bld) 21 % Low 24 - 43 % [facility] MCH (RBC) [Entitic mass] 28.1 pg 25.2 - 33.5 pg [facility] MCHC (RBC) [Mass/Vol] 31.7 g/dL 28.4 - 34.8 g/dL [facility] MCV (RBC) [Entitic vol] 88.6 fL 82.6 - 102.9 fL [facility] Monocytes/100 WBC (Bld) 9 % 3 - 12 % [facility] NRBC Automated 0.0 0.0 per 100 WBC [facility] Platelet distribution width (Bld) [Ratio] 14.0 % 11.8 - 14.4 % [facility] Platelet Estimate NOT REPORTED [facility] Platelet mean volume (Bld) [Entitic vol] 9.0 fL 8.1 - 13.5 fL [facility] Platelets (Bld) [#/Vol] 107 10*3/uL Low [facility] RBC (Bld) [#/Vol] 3.85 10*6/uL Low 3.95 - 5.11 m/uL [facility] RBC (Bld) [#/Vol] NOT REPORTED [facility] Segmented neutrophils/100 WBC (Bld) 69 % High 36 - 65 % [facility] Segs [facility] [#/Vol] 8.8 10*3/uL [facility] WBC (Bld) [#/Vol] NOT REPORTED [facility] CBC with Diffon 09-29-2021 Abs. Basophil <0.03 Normal 0.00-0.20 [facility] Comment on above: Performed By: #### C DP, IPF, BMP #### [employer] [address] [place] [address] Receiver Setter: Brandan Ugalde MD Abs. Eosinophil <0.03 Normal 0.00-0.44 [facility] Comment on above: Performed By: #### C DP, IPF, BMP #### [address] [address] Receiver Setter: Brandan Ugalde MD Abs.Imm.Granulocyte 0.07 k/uL Normal 0.00-0.30 [facility] Comment on above: Performed By: #### C DP, IPF, BMP #### [address] [address] Receiver Setter: Brandan Ugalde MD Abs.Neutrophil (Seg) 6.03 k/uL Normal 1.50-8.10 [facility] Comment on above: Performed By: #### C DP, IPF, BMP #### [address] [address] Receiver Setter: Brandan Ugalde MD Basophils/100 WBC (Bld) 0 % Normal 0-2 [facility] Comment on above: Performed By: #### C DP IPF, BMP #### [address] [address] Receiver Setter: Brandan Ugalde MD Eosinophils/100 WBC (Bld) 0 % Low 1-4 [facility] Comment on above: Performed By: #### C DP, IPF, BMP #### [facility] [employer] [address] [place] [address] Receiver Setter: Brandan Ugalde MD Erythrocyte distribution width (RBC) [Ratio] 14.0 % Normal 11.8-14.4 [facility] Comment on above: Performed By: #### C DP, IPF, BMP #### [facility] [employer] [address] [place] [address] Receiver Setter: Brandan Ugalde MD Hematocrit (Bld) [Volume fraction] 34.1 % Low 36.3-47.1 [facility] Comment on above: Performed By: #### C DP, IPF, BMP #### [facility] [employer] [address] [place] [address] Receiver Setter: Brandan Ugalde MD Hemoglobin (Bld) [Mass/Vol] 10.8 g/dL Low 11.9-15.1 [facility] Comment on above: Performed By: #### C EMILIO MASON, BMP #### [address] [address] Receiver Setter: Brandan Ugalde MD Immature granulocytes/100 WBC (Bld) 1 % High 0 [facility] Comment on above: Performed By: #### C EMILIO MASON, BMP #### [address] [address] Receiver Setter: Brandan Ugalde MD Lymphocytes (Bld) [#/Vol] 1.85 10*3/uL Normal 1.10-3.70 [facility] Comment on above: Performed By: #### C EMILIO MASON, BMP #### [address] [address] Receiver Setter: Brandan Ugalde MD Lymphocytes/100 WBC (Bld) 21 % Low 24-43 [facility] Comment on above: Performed By: #### C EMILIO MASON, BMP #### [address] [address] Receiver Setter: Brandan Ugalde MD MCH (RBC) [Entitic mass] 28.1 pg Normal 25.2-33.5 [facility] Comment on above: Performed By: #### C EMILIO MASON, BMP #### [address] [address] Receiver Setter: Brandan Ugalde MD MCHC (RBC) [Mass/Vol] 31.7 g/dL Normal 28.4-34.8 [facility] Comment on above: Performed By: #### C EMILIO MASON, BMP #### [facility] [employer] [address] [place] [address] Receiver Setter: Brandan Ugalde MD MCV (RBC) [Entitic vol] 88.6 fL Normal 82.6-102.9 [facility] Comment on above: Performed By: #### C DP, IPF, BMP #### [address] [address] Receiver Setter: Brandan Ugalde MD Monocytes (Bld) [#/Vol] 0.79 10*3/uL Normal 0.10-1.20 [facility] Comment on above: Performed By: #### C DP, IPF, BMP #### [address] [address] Receiver Setter: Brandan Ugalde MD Monocytes/100 WBC (Bld) 9 % Normal 3-12 [facility] Comment on above: Performed By: #### C DP, IPF, BMP #### [address] [address] Receiver Setter: Brandan Ugalde MD Neutrophil (Seg) 69 % High 36-65 [facility] Comment on above: Performed By: #### C DP, IPF, BMP #### [address] [address] Receiver Setter: Brandan Ugalde MD NRBC Automated 0.0 per 100 WBC Normal 0.0 [facility] Comment on above: Performed By: #### C DP, IPF, BMP #### [address] [address] Receiver Setter: Brandan Ugalde MD Platelet mean volume (Bld) [Entitic vol] 9.0 fL Normal 8.1-13.5 [facility] Comment on above: Performed By: #### C DP, IPF, BMP #### [address] [address] Receiver Setter: Brandan Ugalde MD Platelets (Bld) [#/Vol] 107 10*3/uL Low 138-453 [facility] Comment on above: Performed By: #### C DP, IPF, BMP #### [facility] [address] [place] [address] Receiver Setter: Brandan Ugalde MD RBC (Bld) [#/Vol] 3.85 10*6/uL Low 3.95-5.11 [facility] Comment on above: Performed By: #### C DP, IPF, BMP #### [facility] [address] [place] [address] Receiver Setter: Brandan Ugalde MD WBC (Bld) [#/Vol] 8.8 10*3/uL Normal 3.5-11.3 [facility] Comment on above: Performed By: #### C DP, IPF, BMP #### [facility] [address] [place] [address] Receiver Setter: Brandan Ugalde MD Auto Diff Performed NOT REPORTED Normal [facility] Comment on above: Performed By: #### C DP, IPF, BMP #### [facility] [address] [place] [address] Receiver Setter: Brandan Ugalde MD Platelet Comment NOT REPORTED Normal [facility] Comment on above: Performed By: #### C DP, IPF, BMP #### [facility] [address] [place] [address] Receiver Setter: Brandan Ugalde MD RBC morphology finding Nom (Bld) NOT REPORTED Normal [facility] Comment on above: Performed By: #### C DP, IPF, BMP #### [facility] [address] [place] [address] Receiver Setter: Brandan Ugalde MD WBC Morphology NOT REPORTED Normal [facility] Comment on above: Performed By: #### C DP, IPF, BMP #### [facility] [address] [place] [address] Receiver Setter: Brandan Ugalde MD MRSA DNA Probe, Nasalon 01-2 2 MRSA, DNA, Nasal Negative NEGATIVE [facility] Comment on above: NEGATIVE: MRSA DNA not detected by nucleic acid amplification. Results should be used as an adjunct to nosocomial control efforts to identify patients needing enhanced precautions. The test is not intended to identify patients with staphylococcal infections. Results should not be used to guide or monitor treatment for MRSA infections. Specimen Description .NASAL SWAB [facility] MRSA, DNA, Nasalon MRSA, DNA, Nasal Negative Normal NEG [facility] Comment on above: Result Comment: NEGA TIVE: [...] By: #### C EMILIO MASON, BMP #### [employer] [address] [place] [address] Receiver Setter: Brandan Ugalde MD Magnesiumon 09-29-2021 Magnesium [Mass/Vol] 1.7 mg/dL Normal 1.6-2.6 [facility] Comment on above: Performed By: #### C EMILIO MASON, BMP #### [employer] [address] [place] [address] Receiver Setter: Brandan Ugalde MD Magnesium [Mass/Vol] 1.7 mg/dL 1.6 - 2.6 mg/dL [facility] Magnesium [Mass/Vol] 1.8 mg/dL Normal 1.6-2.6 [facility] Comment on above: Performed By: #### C ISABELLA IPF, BMP #### [employer] [address] [place] [address] Receiver Setter: Brandan Ugalde MD Magnesium [Mass/Vol] 1.8 mg/dL 1.6 - 2.6 mg/dL [facility] Magnesium [Mass/Vol] 1.9 mg/dL Normal 1.6-2.6 [facility] Comment on above: Performed By: #### C ISABELLA IPF, BMP #### [facility] [address] [place] [address] Receiver Setter: Brandan Ugalde MD Magnesium [Mass/Vol] 1.9 mg/dL 1.6 - 2.6 mg/dL [facility] Magnesium [Mass/Vol] 1.8 mg/dL Normal 1.6-2.6 [facility] Comment on above: Performed By: #### C DP, IPF, BMP #### [employer] [address] [place] [address] Receiver Setter: Brandan Ugalde MD No Panel Informationon 09-29 [facility] Interpretation and review of laboratory results Abnormal [facility] POC Glucose Fingerstickon Glucose [Mass/Vol] 159 mg/dL High 65 - 105 mg/dL [facility] Interpretation and review of laboratory results Abnormal [facility] Glucose [Mass/Vol] 166 mg/dL High 65 - 105 mg/dL [facility] Interpretation and review of laboratory results Abnormal [facility] Glucose [Mass/Vol] 227 mg/dL High 65 - 105 mg/dL [facility] Interpretation and review of laboratory results Abnormal [facility] Glucose [Mass/Vol] 290 mg/dL High 65 - 105 mg/dL [facility] Interpretation and review of laboratory results Abnormal [facility] Glucose [Mass/Vol] 269 mg/dL High 65 - 105 mg/dL [facility] Interpretation and review of laboratory results Abnormal [facility] Glucose [Mass/Vol] 137 mg/dL High 65 - 105 mg/dL [facility] Interpretation and review of laboratory results Abnormal [facility] Phosphoruson 09-29-2021 Phosphate [Mass/Vol] 3.1 mg/dL 2.6 - 4.5 mg/dL [facility] Phosphate [Mass/Vol] 3.0 mg/dL 2.6 - 4.5 mg/dL [facility] Phosphate [Mass/Vol] 1.9 mg/dL Low 2.6 - 4.5 mg/dL [facility] Phosphorus, Inorg.on 022 Phosphorus, Inorg. 3.1 mg/dL Normal 2.6-4.5 [facility] Comment on above: Performed By: #### C DP, IPF, BMP #### [facility] [address] [place] [address] Receiver Setter: Brandan Ugalde MD Phosphorus, Inorg. 3.0 mg/dL Normal 2.6-4.5 [facility] Comment on above: Performed By: #### C DP, IPF, BMP #### [facility] [address] [place] [address] Receiver Setter: Brandan Ugalde MD Phosphorus, Inorg. 1.9 mg/dL Low 2.6-4.5 [facility] Comment on above: Performed By: #### C DP, IPF, BMP #### [facility] [address] [place] [address] Receiver Setter: Brandan Ugalde MD Phosphorus, Inorg. 1.9 mg/dL Low 2.6-4.5 [facility] Comment on above: Performed By: #### C DP, IPF, BMP #### [employer] [address] [place] [address] Receiver Setter: Brandan Ugalde MD SPECIMEN REJECTIONon - NOT REPORTED [facility] Ordered Test [facility] Reason for Rejection Unable to perform testing: Specimen clotted. [facility] Specimen source Nom (Unsp spec) .BLOOD [facility] Specimen Rejectionon Reason for rejection Unable to perform testing: Specimen clotted. Normal [facility] Comment on above: Performed By: #### C DP, IPF, BMP #### [employer] [address] [place] [address] Receiver Setter: Brandan Ugalde MD Source of sample .BLOOD Normal [facility] Comment on above: Performed By: #### C DP, IPF, BMP #### [employer] [address] [place] [address] Receiver Setter: Brandan Ugalde MD Test ordered VBG Normal [facility] Comment on above: Performed By: #### C DP IPF, BMP #### [address] [address] Receiver Setter: Brnadan Ugalde MD ----- NOT REPORTED Normal [facility] Comment on above: Performed By: #### C DP IPF, BMP #### [facility] [address] [place] [address] Receiver Setter: Brandan Ugalde MD Venous Blood Gaseson 022 Body Temp. 37.0 Normal [facility] Comment on above: Performed By: #### C DP IPF, BMP #### [address] [address] Receiver Setter: Brandan Ugalde MD Carboxy Hgb 1.2 % Normal 0-5 [facility] Comment on above: Result Comment: Reference Range: Non-Smokers 0-2% Average Smoker 2-4% Heavy Smoker <10% Performed By: #### C DP IPF, BMP #### [address] [address] Receiver Setter: Brandan Ugalde MD FIO2 INFORMATION NOT PROVIDED Normal [facility] Comment on above: Performed By: #### C DP IPF, BMP #### [address] [address] Receiver Setter: Brandan Ugalde MD HCO3 (Bld) [Moles/Vol] 15.2 mmol/L Low 24-30 [facility] Comment on above: Performed By: #### C DP, IPF, BMP #### [facility] [employer] [address] [place] [address] Receiver Setter: Brandan Ugalde MD Negative Base Excess 10.6 mmol/L High 0.0-2.0 [facility] Comment on above: Performed By: #### C DP, IPF, BMP #### [facility] [place] [address] Receiver Setter: Brandan Ugalde MD Oxygen (Bld) [Partial pressure] 39.5 mm[Hg] Normal 30-50 [facility] Comment on above: Performed By: #### C DP, IPF, BMP #### [facility] [address] [place] [address] Receiver Setter: Brandan Ugalde MD Oxygen saturation in Blood 80.9 % Normal 60.0-85.0 [facility] Comment on above: Performed By: #### C DP, IPF, BMP #### [facility] [employer] [address] [place] [address] Receiver Setter: Brandan Ugalde MD pCO2 34.9 Low 39-55 [facility] Comment on above: Performed By: #### C DP, IPF, BMP #### [facility] [employer] [address] [place] [address] Receiver Setter: Brandan Ugalde MD pH (Bld) 7.261 [pH] Low 7.320-7.420 [facility] Comment on above: Performed By: #### C DP, IPF, BMP #### [facility] [employer] [address] [place] [address] Receiver Setter: Brandan Ugalde MD Bibi Test NOT REPORTED Normal [facility] Comment on above: Performed By: #### C DP, IPF, BMP #### [facility] [employer] [address] [place] [address] Receiver Setter: Brandan Ugalde MD Methemoglobin NOT REPORTED Normal 0.0-1.5 [facility] Comment on above: Performed By: #### C DP, IPF, BMP #### [facility] [address] [place] [address] Receiver Setter: Brandan Ugalde MD Mode NOT REPORTED Normal [facility] Comment on above: Performed By: #### C DP, IPF, BMP #### [facility] [address] [place] [address] Receiver Setter: Brandan Ugalde MD Notification Time NOT REPORTED Normal [facility] Comment on above: Performed By: #### C DP, IPF, BMP #### [facility] [address] [place] [address] Receiver Setter: Brandan Ugalde MD Notification: NOT REPORTED Normal [facility] Comment on above: Performed By: #### C DP, IPF, BMP #### [address] [address] Receiver Setter: Brandan Ugalde MD O2 Device/Flow/% NOT REPORTED Normal [facility] Comment on above: Performed By: #### C DP, IPF, BMP #### [address] [address] Receiver Setter: Brandan Ugalde MD Oxyhemoglobin NOT REPORTED Normal 95.0-98.0 [facility] Comment on above: Performed By: #### C DP, IPF, BMP #### [address] [address] Receiver Setter: Brandan Ugalde MD Pco2 Adj'd for Temp. NOT REPORTED Normal 39-55 [facility] Comment on above: Performed By: #### C DP, IPF, BMP #### [facility] [address] [place] [address] Receiver Setter: Brandan Ugalde MD PEEP/CPAP NOT REPORTED Normal [facility] Comment on above: Performed By: #### C DP, IPF, BMP #### [facility] [address] [place] [address] Receiver Setter: Brandan Ugalde MD pH Adjst'd for Temp. NOT REPORTED Normal 7.320-7.420 [facility] Comment on above: Performed By: #### C DP, IPF, BMP #### [facility] [address] [place] [address] Receiver Setter: Brandan Ugalde MD pO2 Adj'd for Temp. NOT REPORTED Normal 30-50 [facility] Comment on above: Performed By: #### C DP, IPF, BMP #### [facility] [address] [place] [address] Receiver Setter: Brandan Ugalde MD Positive Base Excess NOT REPORTED Normal 0.0-2.0 [facility] Comment on above: Performed By: #### C DP, IPF, BMP #### [facility] [employer] [address] [place] [address] Receiver Setter: Brandan Ugalde MD PSV NOT REPORTED Normal [facility] Comment on above: Performed By: #### C DP, IPF, BMP #### [facility] [employer] [address] [place] [address] Receiver Setter: Brandan Ugalde MD Pt. Position NOT REPORTED Normal [facility] Comment on above: Performed By: #### C DP, IPF, BMP #### [facility] [employer] [address] [place] [address] Receiver Setter: Brandan Ugalde MD Respiratory Rate NOT REPORTED Normal [facility] Comment on above: Performed By: #### C DP, IPF, BMP #### [facility] [address] [place] [address] Receiver Setter: Brandan Ugalde MD Set Rate NOT REPORTED Normal [facility] Comment on above: Performed By: #### C DP, IPF, BMP #### [facility] [address] [place] [address] Receiver Setter: Brandan Ugalde MD Site Drawn NOT REPORTED Normal [facility] Comment on above: Performed By: #### C DP, IPF, BMP #### [facility] [address] [place] [address] Receiver Setter: Brandan Ugalde MD Text for Respiratory NOT REPORTED Normal [facility] Comment on above: Performed By: #### C DP, IPF, BMP #### [facility] [address] [place] [address] Receiver Setter: Brandan Ugalde MD Total Hb NOT REPORTED Normal 12.0-16.0 [facility] Comment on above: Performed By: #### C DP, IPF, BMP #### [facility] [address] [place] [address] Receiver Setter: Brandan Ugalde MD Total Rate NOT REPORTED Normal [facility] Comment on above: Performed By: #### C DP, IPF, BMP #### [facility] [employer] [address] [place] [address] Receiver Setter: Brandan Ugalde MD [place] NOT REPORTED Normal [facility] Comment on above: Performed By: #### C DP, IPF, BMP #### [facility] [employer] [address] [place] [address] Receiver Setter: Brandan Ugalde MD BASIC METABOLIC PANELon 09-05 Anion gap [Moles/Vol] 13 mmol/L 9 - 17 mmol/L [facility] Calcium [Mass/Vol] 8.7 mg/dL 8.6 - 10.4 mg/dL [employer] Chloride [Moles/Vol] 115 mmol/L High 98 - 107 mmol/L [employer] CO2 [Moles/Vol] 14 mmol/L Low 20 - 31 mmol/L [employer] Creatinine [Mass/Vol] 2.15 mg/dL High 0.50 - 0.90 mg/dL [facility] GFR 30 mL/min Low >60 [employer] GFR Non- 25 mL/min Low >60 [employer] GFR/1.73 sq M.predicted MDRD (S/P/Bld) [Vol rate/Area] [facility] Comment on above: Average GFR for 40-4 9 years old: 99 mL/min/1.73sq m Chronic Kidney Disease: <60 mL/min/1.73sq m Kidney failure: <15 mL/min/1.73sq m eGFR calculated using average adult body mass. Additional eGFR calculator available at: [email or web address]_crcl_[email or web address] GFR/1.73 sq M.predicted MDRD (S/P/Bld) [Vol rate/Area] NOT REPORTED [facility] Glucose [Mass/Vol] 160 mg/dL High 70 - 99 mg/dL [facility] Interpretation and review of laboratory results Abnormal [facility] Potassium [Moles/Vol] 2.9 mmol/L Critically low 3.7 - 5.3 mmol/L [facility] Sodium [Moles/Vol] 142 mmol/L 135 - 144 mmol/L [facility] Urea nitrogen (BldV) [Mass/Vol] 33 mg/dL High 6 - 20 mg/dL [facility] Urea nitrogen/Creatinine (Bld) [Mass ratio] NOT REPORTED [facility] BLOOD GAS, VENOUSon 09-28-19 Bibi Test NOT REPORTED [facility] Carboxyhemoglobin 2.2 % 0 - 5 % [facility] Comment on above: Reference Range: Non-Smokers 0-2% Average Smoker 2-4% Heavy Smoker <10% FIO2 UNKNOWN [facility] HCO3 (Bld) [Moles/Vol] 17.3 mmol/L Low 24 - 30 mmol/L [facility] Interpretation and review of laboratory results Abnormal [facility] Methemoglobin NOT REPORTED 0.0 - 1.5 % [facility] alth Mode NOT REPORTED [facility] Negative Base Excess, Earnest 8.2 mmol/L High 0.0 - 2.0 mmol/L [facility] NOTIFICATION NOT REPORTED [facility] th NOTIFICATION TIME NOT REPORTED [facility] O2 Device/Flow/% NOT REPORTED [facility] Oxygen saturation in Blood 80.7 % 60.0 - 85.0 % [facility] Oxyhemoglobin NOT REPORTED 95.0 - 98.0 % [facility] pCO2, Earnest 37.0 Low [facility] pCO2, Earnest, Temp Adj NOT REPORTED [facility]bg Peep/Cpap NOT REPORTED [facility] pH, Earnest 7.290 Low [facility] pH, Earnest, Temp Adj NOT REPORTED [facility] pO2, Earnest 34.0 [facility] pO[facility], [facility]arnest, Temp Adj NOT REPORTED [facility] Positive Base Excess, Earnest NOT REPORTED 0.0 - 2.0 mmol/L [facility] PSV NOT REPORTED [facility] Pt Temp 37.0 [facility] Pt. Position NOT REPORTED [facility] th Respiratory Rate NOT REPORTED [facility] Sample Site NOT RE[facility]ED [facility] Rate NOT REPORTED [facility] Text for Respiratory NOT REPORTED [facility] Total Hb NOT REPORTED 12.0 - 16.0 g/dl [facility] Total Rate NOT REPORTED [facility] VT NOT REPORTED [facility] Basic Metabolic Panelon 09-05 Anion gap [Moles/Vol] 6 mmol/L Low 9 - 17 mmol/L [facility] Calcium [Mass/Vol] 8.5 mg/dL Low 8.6 - 10.4 mg/dL [facility] Chloride [Moles/Vol] 110 mmol/L High 98 - 107 mmol/L [facility] CO2 [Moles/Vol] 15 mmol/L Low 20 - 31 mmol/L [facility] Creatinine [Mass/Vol] 2.24 mg/dL High 0.50 - 0.90 mg/dL [facility] GFR 29 mL/min Low >60 [employer] GFR Non- 24 mL/min Low >60 [facility] GFR/1.73 sq M.predicted MDRD (S/P/Bld) [Vol rate/Area] [facility] Comment on above: Average GFR for 40-4 9 years old: 99 mL/min/1.73sq m Chronic Kidney Disease: <60 mL/min/1.73sq m Kidney failure: <15 mL/min/1.73sq m eGFR calculated using average adult body mass. Additional eGFR calculator available at: http://www.BumpTop.BeanJockey/multiple_crcl_2012.htm GFR/1.73 sq M.predicted MDRD (S/P/Bld) [Vol rate/Area] NOT REPORTED [facility] Glucose [Mass/Vol] 156 mg/dL High 70 - 99 mg/dL [facility] Potassium [Moles/Vol] 3.4 mmol/L Low 3.7 - 5.3 mmol/L [facility] Sodium [Moles/Vol] 131 mmol/L Low 135 - 144 mmol/L [facility] Urea nitrogen (BldV) [Mass/Vol] 32 mg/dL High 6 - 20 mg/dL [facility] Urea nitrogen/Creatinine (Bld) [Mass ratio] NOT REPORTED [facility] Anion gap [Moles/Vol] 10 mmol/L 9 - 17 mmol/L [facility] Calcium [Mass/Vol] 8.2 mg/dL Low 8.6 - 10.4 mg/dL [facility] Chloride [Moles/Vol] 113 mmol/L High 98 - 107 mmol/L [facility] CO2 [Moles/Vol] 16 mmol/L Low 20 - 31 mmol/L [facility] Creatinine [Mass/Vol] 2.2 mg/dL High 0.50 - 0.90 mg/dL [facility] GFR 30 mL/min Low >60 [facility] GFR Non- 24 mL/min Low >60 [facility] GFR/1.73 sq M.predicted MDRD (S/P/Bld) [Vol rate/Area] [facility] Comment on above: Average GFR for 40-4 9 years old: 99 mL/min/1.73sq m Chronic Kidney Disease: <60 mL/min/1.73sq m Kidney failure: <15 mL/min/1.73sq m eGFR calculated using average adult body mass. Additional eGFR calculator available at: http://www.Jimmy Fairly/multiple_crcl_2012.htm GFR/1.73 sq M.predicted MDRD (S/P/Bld) [Vol rate/Area] NOT REPORTED [facility] Glucose [Mass/Vol] 231 mg/dL High 70 - 99 mg/dL [facility] Potassium [Moles/Vol] 4.5 mmol/L 3.7 - 5.3 mmol/L [facility] Comment on above: SPECIMEN SLIGHTLY HE MOLYZED, RESULTS MAY BE ADVERSELY AFFECTED. Sodium [Moles/Vol] 139 mmol/L 135 - 144 mmol/L [facility] Urea nitrogen (BldV) [Mass/Vol] 33 mg/dL High 6 - 20 mg/dL [facility] Urea nitrogen/Creatinine (Bld) [Mass ratio] NOT REPORTED [facility] Anion gap [Moles/Vol] 17 mmol/L 9 - 17 mmol/L [facility] Calcium [Mass/Vol] 8.7 mg/dL 8.6 - 10.4 mg/dL [facility] Chloride [Moles/Vol] 116 mmol/L High 98 - 107 mmol/L [facility] CO2 [Moles/Vol] 12 mmol/L Low 20 - 31 mmol/L [facility] Creatinine [Mass/Vol] 2.22 mg/dL High 0.50 - 0.90 mg/dL [facility] GFR 29 mL/min Low >60 [facility] GFR Non- 24 mL/min Low >60 [facility] GFR/1.73 sq M.predicted MDRD (S/P/Bld) [Vol rate/Area] [facility] Comment on above: Average GFR for 40-4 9 years old: 99 mL/min/1.73sq m Chronic Kidney Disease: <60 mL/min/1.73sq m Kidney failure: <15 mL/min/1.73sq m eGFR calculated using average adult body mass. Additional eGFR calculator available at: http://www.Jimmy Fairly/multiple_crcl_2012.htm GFR/1.73 sq M.predicted MDRD (S/P/Bld) [Vol rate/Area] NOT REPORTED [facility] Glucose [Mass/Vol] 232 mg/dL High 70 - 99 mg/dL [facility] Potassium [Moles/Vol] 3.2 mmol/L Low 3.7 - 5.3 mmol/L [facility] Sodium [Moles/Vol] 145 mmol/L High 135 - 144 mmol/L [facility] Urea nitrogen (BldV) [Mass/Vol] 35 mg/dL High 6 - 20 mg/dL [facility] Urea nitrogen/Creatinine (Bld) [Mass ratio] NOT REPORTED [facility] Basic Metabolic Profon 09-28 BUN/CRE Ratio NOT REPORTED Normal 05-24 [facility] Comment on above: Performed By: #### C DP, IPF, BMP #### [facility] [address] [place] [address] Receiver Setter: Brandan Ugalde MD Staging: NOT REPORTED Normal [facility] Comment on above: Performed By: #### C DP, IPF, BMP #### [facility] [address] [place] [address] Receiver Setter: Brandan Ugalde MD (cont.) Normal [facility] Comment on above: Result Comment: Aver age GFR for 40-49 years old: 99 mL/min/1.73sq m Chronic Kidney Disease: <60 mL/min/1.73sq m Kidney failure: <15 mL/min/1.73sq m eGFR calculated using average adult body mass. Additional eGFR calculator available at: http://www.Jimmy Fairly/multiple_crcl_2011.htm Performed By: #### C EMILIO MASON BMP #### [facility] [address] [place] [phone] Receiver Setter: Brandan Ugalde MD Anion gap [Moles/Vol] 10 mmol/L Normal 9-17 [facility] Comment on above: Performed By: #### C EMILIO MASON BMP #### [facility] [employer] [address] [place] [address] Receiver Setter: Brandan Ugalde MD Calcium [Mass/Vol] 8.2 mg/dL Low 8.6-10.4 [facility] Comment on above: Performed By: #### C EMILIO MASON BMP #### [facility] [employer] [address] [place] [address] Receiver Setter: Brandan Ugalde MD Chloride [Moles/Vol] 113 mmol/L High 98-107 [facility] Comment on above: Performed By: #### C EMILIO MASON, BMP #### [facility] [address] [place] [address] Receiver Setter: Brandan Ugalde MD CO2 [Moles/Vol] 16 mmol/L Low 20-31 [facility] Comment on above: Performed By: #### C EMILIO MASON, BMP #### [facility] [employer] [address] [place] [address] Receiver Setter: Brandan Ugalde MD Creatinine [Mass/Vol] 2.20 mg/dL High 0.50-0.90 [facility] Comment on above: Performed By: #### C DP, IPF, BMP #### [facility] [address] [place] [address] Receiver Setter: Brandan Ugalde MD GFR, Amer 30 mL/min Low >60 [facility] Comment on above: Performed By: #### C DP, IPF, BMP #### [facility] [address] [place] [address] Receiver Setter: Brandan Ugalde MD GFR,non Amer 24 mL/min Low >60 [facility] Comment on above: Performed By: #### C DP, IPF, BMP #### [facility] [employer] [address] [place] [address] Receiver Setter: Brandan Ugalde MD Glucose [Mass/Vol] 231 mg/dL High 70-99 [facility] Comment on above: Performed By: #### C DP, IPF, BMP #### [facility] [employer] [address] [place] [address] Receiver Setter: Brandan Ugalde MD Potassium [Moles/Vol] 4.5 mmol/L Normal 3.7-5.3 [facility] Comment on above: Result Comment: SPEC IMEN SLIGHTLY HEMOLYZED, RESULTS MAY BE ADVERSELY AFFECTED. Performed By: #### C DP, IPF, BMP #### [facility] [employer] [address] [place] [address] Receiver Setter: Brandan Ugalde MD Sodium [Moles/Vol] 139 mmol/L Normal 135-144 [facility] Comment on above: Performed By: #### C DP, IPF, BMP #### [facility] [employer] [address] [place] [address] Receiver Setter: Brandan Ugalde MD Urea nitrogen [Mass/Vol] 33 mg/dL High 6-20 [facility] Comment on above: Performed By: #### C DP, IPF, BMP #### [facility] [employer] [address] [place] [address] Receiver Setter: Brandan Ugalde MD BUN/CRE Ratio NOT REPORTED Normal 9-20 [facility] Comment on above: Performed By: #### C EMILIO MASON, BMP #### [facility] [address] [place] [address] Receiver Setter: Brandan Ugalde MD Staging: NOT REPORTED Normal [facility] Comment on above: Performed By: #### C EMILIO MASON, BMP #### [place] [address] [place] [address] Receiver Setter: Brandan Ugalde MD (cont.) Normal [facility] Comment on above: Result Comment: Aver age GFR for 40-49 years old: 99 mL/min/1.73sq m Chronic Kidney Disease: <60 mL/min/1.73sq m Kidney failure: <15 mL/min/1.73sq m eGFR calculated using average adult body mass. Additional eGFR calculator available at: http://www.BumpTop.BeanJockey/multiple_crcl_2012.htm Performed By: #### B MP, MG, MARZENA #### [address] [address] Receiver Setter: Brandan Ugalde MD Anion gap [Moles/Vol] 17 mmol/L Normal 9-17 [facility] Comment on above: Performed By: #### B MP, MG, MARZENA #### [address] [address] Receiver Setter: Brandan Ugalde MD Calcium [Mass/Vol] 8.7 mg/dL Normal 8.6-10.4 [facility] Comment on above: Performed By: #### B MP, MG, MARZENA #### [address] [address] Receiver Setter: Brandan Ugalde MD Chloride [Moles/Vol] 116 mmol/L High 98-107 [facility] Comment on above: Performed By: #### B MP, MG, MARZENA #### [facility] [address] [place] [address] Receiver Setter: Brandan Ugalde MD CO2 [Moles/Vol] 12 mmol/L Low 20-31 [facility] Comment on above: Performed By: #### B MP, MG, MARZENA #### [facility] [address] [place] [address] Receiver Setter: Brandan Ugalde MD Creatinine [Mass/Vol] 2.22 mg/dL High 0.50-0.90 [facility] Comment on above: Performed By: #### B MP, MG, MARZENA #### [facility] [address] [place] [address] Receiver Setter: Brandan Ugalde MD GFR, Amer 29 mL/min Low >60 [facility] Comment on above: Performed By: #### B MP, MG, MARZENA #### [facility] [address] [place] [address] Receiver Setter: Brandan Ugalde MD GFR,non Amer 24 mL/min Low >60 [facility] Comment on above: Performed By: #### B MP, MG, MARZENA #### [facility] [address] [place] [address] Receiver Setter: Brandan Ugalde MD Glucose [Mass/Vol] 232 mg/dL High 70-99 [facility] Comment on above: Performed By: #### B MP, MG, MARZENA #### [facility] [address] [place] [address] Receiver Setter: Brandan Ugalde MD Potassium [Moles/Vol] 3.2 mmol/L Low 3.7-5.3 [facility] Comment on above: Performed By: #### B MP, MG, MARZENA #### [facility] [address] [place] [address] Receiver Setter: Brandan Ugalde MD Sodium [Moles/Vol] 145 mmol/L High 135-144 [facility] Comment on above: Performed By: #### B MP, MG, MARZENA #### [facility] [address] [place] [address] Receiver Setter: Brandan Ugalde MD Urea nitrogen [Mass/Vol] 35 mg/dL High 6-20 [facility] Comment on above: Performed By: #### B MP, MG, MARZENA #### [facility] [address] [place] [address] Receiver Setter: Brandan Ugalde MD BUN/CRE Ratio NOT REPORTED Normal - [facility] Comment on above: Performed By: #### B MP, MG, MARZENA #### [facility] [address] [place] [address] Receiver Setter: Brandan Ugalde MD Staging: NOT REPORTED Normal [facility] Comment on above: Performed By: #### B MP, MG, MARZENA #### [facility] [employer] [address] [place] [address] Receiver Setter: Brandan Ugalde MD (cont.) [facility] Comment on above: Result Comment: Aver age GFR for 40-49 years old: 99 mL/min/1.73sq m Chronic Kidney Disease: <60 mL/min/1.73sq m Kidney failure: <15 mL/min/1.73sq m eGFR calculated using average adult body mass. Additional eGFR calculator available at: http://www.BumpTop.com/multiple_crcl_2012.htm Performed By: #### C DP IPF, BMP #### [facility] [address] [place] [address] Receiver Setter: Brandan Ugalde MD Anion gap [Moles/Vol] 13 mmol/L Normal -17 [facility] Comment on above: Performed By: #### C DP IPF, BMP #### [facility] [place] [address] Receiver Setter: Brandan Ugalde MD Calcium [Mass/Vol] 8.7 mg/dL Normal 8.6-10.4 [facility] Comment on above: Performed By: #### C DP, IPF, BMP #### [facility] [address] [place] [address] Receiver Setter: Brandan Ugalde MD Chloride [Moles/Vol] 115 mmol/L High 98-107 [facility] Comment on above: Performed By: #### C DP, IPF, BMP #### [facility] [employer] [address] [place] [address] Receiver Setter: Brandan Ugalde MD CO2 [Moles/Vol] 14 mmol/L Low 20-31 [facility] Comment on above: Performed By: #### C DP, IPF, BMP #### [facility] [employer] [address] [place] [address] Receiver Setter: Brandan Ugalde MD Creatinine [Mass/Vol] 2.15 mg/dL High 0.50-0.90 [facility] Comment on above: Performed By: #### C DP, IPF, BMP #### [facility] [address] [place] [address] Receiver Setter: Brandan Ugalde MD GFR, Amer 30 mL/min Low >60 [facility] Comment on above: Performed By: #### C DP, IPF, BMP #### [facility] [address] [place] [address] Receiver Setter: Brandan Ugalde MD GFR,non Amer 25 mL/min Low >60 [facility] Comment on above: Performed By: #### C DP, IPF, BMP #### [facility] [address] [place] [address] Receiver Setter: Brandan Ugalde MD Glucose [Mass/Vol] 160 mg/dL High 70-99 [facility] Comment on above: Performed By: #### C DP, IPF, BMP #### [facility] [address] [place] [address] Receiver Setter: Brandan Ugalde MD Potassium [Moles/Vol] 2.9 mmol/L Critically low 3.7-5.3 [facility] Comment on above: Performed By: #### C DP, IPF, BMP #### [facility] [address] [place] [address] Receiver Setter: Brandan Ugalde MD Sodium [Moles/Vol] 142 mmol/L Normal 135-144 [facility] Comment on above: Performed By: #### C DP, IPF, BMP #### [facility] [employer] [address] [place] [address] Receiver Setter: Brandan Ugalde MD Urea nitrogen [Mass/Vol] 33 mg/dL High 6-20 [facility] Comment on above: Performed By: #### C DP, IPF, BMP #### [facility] [address] [place] [address] Receiver Setter: Brandan Ugalde MD BUN/CRE Ratio NOT REPORTED Normal -20 [facility] Comment on above: Performed By: #### C DP, IPF, BMP #### [facility] [address] [place] [address] Receiver Setter: Brandan Ugalde MD Staging: NOT REPORTED Normal [facility] Comment on above: Performed By: #### C DP, IPF, BMP #### [facility] [employer] [address] [place] [address] Receiver Setter: Brandan Ugalde MD CBC WITH AUTO DIFFERENTIALon 09-28-2021 Absolute Eos # <0.03 [facility] Absolute Immature Granulocyte 0.18 [facility] Absolute Lymph # 1.06 Low [facility] Absolute Wallace # 1.03 [facility] lt Basophils (Bld) [#/Vol] 10*3/uL [facility] Basophils/100 WBC (Bld) 0 % 0 - 2 % [facility] Differential Type NOT REPORTED [facility] Eosinophils/100 WBC (Bld) 0 % Low 1 - 4 % [facility] Hematocrit (Bld) [Volume fraction] 36.2 % Low 36.3 - 47.1 % [facility] Hemoglobin.gastroint estinal spec 1 Ql (Stl) 12.8 g/dL 11.9 - 15.1 g/dL [facility] Immature granulocytes/100 WBC (Bld) 1 % High 0 [facility] Interpretation and review of laboratory results Abnormal [facility] Lymphocytes/100 WBC (Bld) 8 % Low 24 - 43 % [facility] MCH (RBC) [Entitic mass] 29.1 pg 25.2 - 33.5 pg [facility] MCHC (RBC) [Mass/Vol] 35.4 g/dL High 28.4 - 34.8 g/dL [facility] MCV (RBC) [Entitic vol] 82.3 fL Low 82.6 - 102.9 fL [facility] Monocytes/100 WBC (Bld) 8 % 3 - 12 % [facility] NRBC Automated 0.0 0.0 per 100 WBC [facility] Platelet distribution width (Bld) [Ratio] 13.2 % 11.8 - 14.4 % [facility] Platelet Estimate NOT REPORTED [facility] Platelet mean volume (Bld) [Entitic vol] NOT REPORTED 8.1 - 13.5 fL [facility] Platelets (Bld) [#/Vol] See Reflexed IPF Result [facility] RBC (Bld) [#/Vol] 4.40 10*6/uL 3.95 - 5.11 m/uL [facility] RBC (Bld) [#/Vol] MICROCYTOSIS PRESENT [facility] Segmented neutrophils/100 WBC (Bld) 82 % High 36 - 65 % [facility] Segs Absolute 10.34 [facility] [#/Vol] 12.6 10*3/uL High [facility] WBC (Bld) [#/Vol] NOT REPORTED [facility] CBC with Diffon 09-28-2021 Abs. Basophil <0.03 Normal 0.00-0.20 [facility] Comment on above: Performed By: #### C DP, IPF, BMP #### [facility] [employer] [address] [place] [address] Receiver Setter: Brandan Ugalde MD Abs. Eosinophil <0.03 Normal 0.00-0.44 [facility] Comment on above: Performed By: #### C DP, IPF, BMP #### [facility] [employer] [address] [place] [address] Receiver Setter: Brandan Ugalde MD Abs.Imm.Granulocyte 0.18 k/uL Normal 0.00-0.30 [facility] Comment on above: Performed By: #### C DP, IPF, BMP #### [facility] [employer] [address] [place] [address] Receiver Setter: Brandan Ugalde MD Abs.Neutrophil (Seg) 10.34 k/uL High 1.50-8.10 [facility] Comment on above: Performed By: #### C DP, IPF, BMP #### [facility] [address] [place] [address] Receiver Setter: Brandan Ugalde MD Basophils/100 WBC (Bld) 0 % Normal 0-2 [facility] Comment on above: Performed By: #### C DP, IPF, BMP #### [facility] [employer] [address] [place] [address] Receiver Setter: Brandan Ugalde MD Eosinophils/100 WBC (Bld) 0 % Low 1-4 [facility] Comment on above: Performed By: #### C DP, IPF, BMP #### [facility] [address] [place] [address] Receiver Setter: Brandan Ugalde MD Erythrocyte distribution width (RBC) [Ratio] 13.2 % Normal 11.8-14.4 [facility] Comment on above: Performed By: #### C DP, IPF, BMP #### [facility] [address] [place] [address] Receiver Setter: Brandan Ugalde MD Hematocrit (Bld) [Volume fraction] 36.2 % Low 36.3-47.1 [facility] Comment on above: Performed By: #### C ISABELLA IPF, BMP #### [facility] [address] [place] [address] Receiver Setter: Brandan Ugalde MD Hemoglobin (Bld) [Mass/Vol] 12.8 g/dL Normal 11.9-15.1 [facility] Comment on above: Performed By: #### C ISABELLA IPF, BMP #### [facility] [employer] [address] [place] [address] Receiver Setter: Brandan Ugalde MD Immature granulocytes/100 WBC (Bld) 1 % High 0 [facility] Comment on above: Performed By: #### C ISABELLA IPF, BMP #### [facility] [employer] [address] [place] [address] Receiver Setter: Brandan Ugalde MD Lymphocytes (Bld) [#/Vol] 1.06 10*3/uL Low 1.10-3.70 [facility] Comment on above: Performed By: #### C ISABELLA IPF, BMP #### [facility] [employer] [address] [place] [address] Receiver Setter: Brandan Ugalde MD Lymphocytes/100 WBC (Bld) 8 % Low 24-43 [facility] Comment on above: Performed By: #### C DP IPF, BMP #### [facility] [address] [place] [address] Receiver Setter: Brandan Ugalde MD MCH (RBC) [Entitic mass] 29.1 pg Normal 25.2-33.5 [facility] Comment on above: Performed By: #### C ISABELLA IPF, BMP #### [facility] [employer] [address] [place] [address] Receiver Setter: Brandan Ugalde MD MCHC (RBC) [Mass/Vol] 35.4 g/dL High 28.4-34.8 [facility] Comment on above: Performed By: #### C DP IPF, BMP #### [address] [address] Receiver Setter: Brandan Ugalde MD MCV (RBC) [Entitic vol] 82.3 fL Low 82.6-102.9 [facility] Comment on above: Performed By: #### C DP IPF, BMP #### [address] [address] Receiver Setter: Brandan Ugalde MD Monocytes (Bld) [#/Vol] 1.03 10*3/uL Normal 0.10-1.20 [facility] Comment on above: Performed By: #### C ISABELLA IPF, BMP #### [address] [address] Receiver Setter: Brandan Ugalde MD Monocytes/100 WBC (Bld) 8 % Normal 3-12 [facility] Comment on above: Performed By: #### C DP IPF, BMP #### [address] [address] Receiver Setter: Brandan Ugalde MD Neutrophil (Seg) 82 % High 36-65 [facility] Comment on above: Performed By: #### C DP IPF, BMP #### [address] [address] Receiver Setter: Brandan Ugalde MD NRBC Automated 0.0 per 100 WBC Normal 0.0 [facility] Comment on above: Performed By: #### C DP IPF, BMP #### [address] [address] Receiver Setter: Brandan Ugalde MD Platelet Count See Reflexed IPF Result Normal 138-453 [facility] Comment on above: Performed By: #### C DP, IPF, BMP #### [facility] [address] [place] [address] Receiver Setter: Brandan Ugalde MD RBC (Bld) [#/Vol] 4.40 10*6/uL Normal 3.95-5.11 [facility] Comment on above: Performed By: #### C DP, IPF, BMP #### [facility] [address] [place] [address] Receiver Setter: Brandan Ugalde MD RBC morphology finding Nom (Bld) MICROCYTOSIS PRESENT Normal [facility] Comment on above: Performed By: #### C DP, IPF, BMP #### [address] [address] Receiver Setter: Brandan Ugalde MD WBC (Bld) [#/Vol] 12.6 10*3/uL High 3.5-11.3 [facility] Comment on above: Performed By: #### C DP, IPF, BMP #### [address] [address] Receiver Setter: Brandan Ugalde MD Auto Diff Performed NOT REPORTED Normal [facility] Comment on above: Performed By: #### C DP, IPF, BMP #### [address] [address] Receiver Setter: Brandan Ugalde MD MPV NOT REPORTED Normal 8.1-13.5 [facility] Comment on above: Performed By: #### C DP, IPF, BMP #### [address] [address] Receiver Setter: Brandan Ugalde MD Platelet Comment NOT REPORTED Normal [facility] Comment on above: Performed By: #### C DP, IPF, BMP #### [facility] [employer] [address] [place] [address] Receiver Setter: Brandan Ugalde MD WBC Morphology NOT REPORTED Normal [facility] Comment on above: Performed By: #### C EMILIO MASON BMP #### [employer] [address] [place] [address] Receiver Setter: Brandan Ugalde MD Immature Platelet Fractionon 09-28-2021 Interpretation and review of laboratory results Abnormal [facility] Platelet, Fluorescence 147 [facility] Comment on above: ORDERED BY LAB Platelet, Immature Fraction 0.4 % Low 1.1 - 10.3 % [facility] Comment on above: ORDERED BY LAB [facility] LACTIC ACID, WHOLE BLOODon 0 09-28-2021 Lactic Acid, Whole Blood 1.4 mmol/L 0.7 - 2.1 mmol/L [facility] Lactic Acid,Whole Blon 09-28 Lactic Acid,Whole Bl 1.4 mmol/L Normal 0.7-2.1 [facility] Comment on above: Performed By: #### L ACWB #### [facility] [address] [place] [address] Receiver Setter: Brandan Ugalde MD MRSA, DNA, Nasalon Specimen Description .NASAL SWAB Normal [facility] Comment on above: Performed By: #### C EMILIO MASON BMP #### [facility] [address] [place] [address] Receiver Setter: Brandan Ugalde MD Magnesiumon 09-28-2021 Magnesium [Mass/Vol] 1.8 mg/dL 1.6 - 2.6 mg/dL [facility] Magnesium [Mass/Vol] 1.9 mg/dL Normal 1.6-2.6 [facility] Comment on above: Performed By: #### C EMILIO MASON, BMP #### [facility] [address] [place] [address] Receiver Setter: Brandan Ugalde MD Magnesium [Mass/Vol] 1.9 mg/dL 1.6 - 2.6 mg/dL [facility] Magnesium [Mass/Vol] 2.1 mg/dL Normal 1.6-2.6 [facility] Comment on above: Performed By: #### B MP, MG, MARZENA #### [facility] [address] [place], [place] [phone] Receiver Setter: Brandan Ugalde MD Magnesium [Mass/Vol] 2.1 mg/dL 1.6 - 2.6 mg/dL [facility] Microscopic Urinalysison - [facility] Amorphous, UA NOT REPORTED None [facility] B[facility], UA NOT REPORTED None [facility] th Casts UA FINE [facility] UA 5 TO 10 [facility] Crystals, UA NOT REPORTED None /HPF [facility] Epithelial Cells UA 5 TO 10 [facility] Interpretation and review of laboratory results Abnormal [facility] Mucus, UA NOT REPORTED None [facility] Other Observations UA NOT REPORTED NOT REQ. [facility] RBC, UA 5 TO 10 [facility] Renal Epithelial, UA NOT REPORTED 0 /HPF [facility] Trichomonas, UA NOT REPORTED None [facility] ealth WBC, UA 5 TO 10 [facility] Yeast, UA MODERATE Abnormal None [facility] No Panel Informationon 09-28 Interpretation and review of laboratory results Abnormal [facility] Interpretation and review of laboratory results Abnormal [facility] Interpretation and review of laboratory results Abnormal [facility] PLT, Immature Fract.on 09-28 Platelet, Fluoresc. 147 k/uL Normal 138-453 [facility] Comment on above: Result Comment: ORDE RED BY LAB Performed By: #### C ISABELLA, IPF, BMP #### [facility] [address] [place], [place] [phone] Receiver Setter: Brandan Ugalde MD PLT, Immature Fract. 0.4 % Low 1.1-10.3 [facility] Comment on above: Result Comment: ORDE RED BY LAB Performed By: #### C DP, IPF, BMP #### [facility] [address] [place], [place] [phone] Receiver Setter: Brandan Ugalde MD POC Glucose Fingerstickon Glucose [Mass/Vol] 140 mg/dL High 65 - 105 mg/dL [facility] Interpretation and review of laboratory results Abnormal [facility] Glucose [Mass/Vol] 148 mg/dL High 65 - 105 mg/dL [facility] Interpretation and review of laboratory results Abnormal [facility] Glucose [Mass/Vol] 161 mg/dL High 65 - 105 mg/dL [facility] Interpretation and review of laboratory results Abnormal [facility] Glucose [Mass/Vol] 176 mg/dL High 65 - 105 mg/dL [facility] Interpretation and review of laboratory results Abnormal [facility] Glucose [Mass/Vol] 212 mg/dL High 65 - 105 mg/dL [facility] Interpretation and review of laboratory results Abnormal [facility] Glucose [Mass/Vol] 223 mg/dL High 65 - 105 mg/dL [facility] Interpretation and review of laboratory results Abnormal [facility] Glucose [Mass/Vol] 208 mg/dL High 65 - 105 mg/dL [facility] Interpretation and review of laboratory results Abnormal [facility] Glucose [Mass/Vol] 248 mg/dL High 65 - 105 mg/dL [facility] Interpretation and review of laboratory results Abnormal [facility] Glucose [Mass/Vol] 217 mg/dL High 65 - 105 mg/dL [facility] Interpretation and review of laboratory results Abnormal [facility] Glucose [Mass/Vol] 205 mg/dL High 65 - 105 mg/dL [facility] Interpretation and review of laboratory results Abnormal [facility] Glucose [Mass/Vol] 199 mg/dL High 65 - 105 mg/dL [facility] Interpretation and review of laboratory results Abnormal [facility] Glucose [Mass/Vol] 178 mg/dL High 65 - 105 mg/dL [facility] Interpretation and review of laboratory results Abnormal [facility] Glucose [Mass/Vol] 151 mg/dL High 65 - 105 mg/dL [facility] Interpretation and review of laboratory results Abnormal [facility] Glucose [Mass/Vol] 162 mg/dL High 65 - 105 mg/dL [facility] Interpretation and review of laboratory results Abnormal [facility] Phosphoruson 09-28-2021 Phosphate [Mass/Vol] 1.9 mg/dL Low 2.6 - 4.5 mg/dL [facility] Phosphate [Mass/Vol] 1.6 mg/dL Low 2.6 - 4.5 mg/dL [facility] Phosphate [Mass/Vol] 1.9 mg/dL Low 2.6 - 4.5 mg/dL [facility] Phosphorus, Inorg.on 022 Phosphorus, Inorg. 1.6 mg/dL Low 2.6-4.5 [facility] Comment on above: Performed By: #### C EMILIO MASON, DACIA #### [facility] [employer] [address] [place] [address] Receiver Setter: Brandan Ugalde MD Phosphorus, Inorg. 1.9 mg/dL Low 2.6-4.5 [facility] Comment on above: Performed By: #### C EMILIO MASON, BMP #### [employer] [address] [place] [address] [phone] Receiver Setter: Brandan Ugalde MD Urinalysison 09-28-2021 Bilirubin Urine Negative NEGATIVE [facility] lt Color, UA Yellow Yellow [facility] Glucose, Ur 1+ Abnormal NEGATIVE [facility] Interpretation and review of laboratory results Abnormal [facility] Ketones Ql (U) SMALL Abnormal NEGATIVE [facility] Leukocyte esterase Test strip Ql (U) MODERATE Abnormal NEGATIVE [facility] Nitrite, Urine Negative NEGATIVE [facility] pH, UA 5.5 [facility] Protein, UA 2+ Abnormal NEGATIVE [facility] Specific Weiner, UA 1.016 [facility] Turbidity UA Turbid Abnormal Clear [facility] Urinalysis Comments NOT REPORTED [facility] Urine Hgb LARGE Abnormal NEGATIVE [facility] Urobilinogen, Urine Normal Normal [facility] Urinalysis, Routineon 2021 Bilirubin, SemiQt,Ur Negative Normal NEG [facility] Comment on above: Performed By: #### PRATIBHA Claudio #### [facility] [employer] [address] [place] [address] [phone] Receiver Setter: Brandan Ugalde MD Blood, Urine LARGE Abnormal NEG [facility] Comment on above: Performed By: #### PRATIBHA Claudio #### [facility] [address] [place] [address] Receiver Setter: Brandan Ugalde MD Clarity (U) Turbid Abnormal CLEAR [facility] Comment on above: Performed By: #### U A, UMICAO #### [facility] [address] [place] [address] Receiver Setter: Brandan Ugalde MD Color (U) Yellow Normal YEL [facility] Comment on above: Performed By: #### U A, UMICAO #### [facility] [address] [place] [address] Receiver Setter: Brandan Ugalde MD Glucose Ql (U) 1+ Abnormal NEG [facility] Comment on above: Performed By: #### U A, UMICAO #### [address] [address] Receiver Setter: Brandan Ugalde MD Ketones Ql (U) SMALL Abnormal NEG [facility] Comment on above: Performed By: #### U A, UMICAO #### [address] [address] Receiver Setter: Brandan Ugalde MD Leukocyte esterase Test strip Ql (U) MODERATE Abnormal NEG [facility] Comment on above: Performed By: #### U A, UMICAO #### [address] [address] Receiver Setter: Brandan Ugalde MD Nitrite,Ur Negative Normal NEG [facility] Comment on above: Performed By: #### U A, UMICAO #### [facility] [address] [place] [address] Receiver Setter: Brandan Ugalde MD PH,Ur 5.5 Normal 5.0-8.0 [facility] Comment on above: Performed By: #### U A, UMICAO #### [facility] [employer] [address] [place] [address] Receiver Setter: Brandan Ugalde MD Protein Ql (U) 2+ Abnormal NEG [facility] Comment on above: Performed By: #### U AFRANKO #### [facility] [employer] [address] [place] [address] Receiver Setter: Brandan Ugalde MD Spec. Weiner,Ur 1.016 Normal 1.005-1.030 [facility] Comment on above: Performed By: #### U ACOLLEENICAO #### [employer] [address] [place] [address] Receiver Setter: Brandan Ugalde MD Urobilinogen,Ur Normal Normal NORM [facility] Comment on above: Performed By: #### PRATIBHA Claudio #### [facility] [employer] [address] [place] [address] Receiver Setter: Brandan Ugalde MD Comment NOT REPORTED Normal [facility] Comment on above: Performed By: #### PRATIBHA Claudio #### [address] [address] Receiver Setter: Brandan Ugalde MD Urinalysis,Microon 2 ----- Normal [facility] Comment on above: Performed By: #### PRATIBHA Claudio #### [facility] [address] [place] [address] Receiver Setter: Brandan Ugalde MD Casts FINE GRANULAR Normal 0-2 [facility] Comment on above: Result Comment: 5 TO 10 Performed By: #### PRATIBHA Claudio #### [facility] [address] [place] [address] Receiver Setter: Brandan Ugalde MD Epithelial cells LM Ql (Urine sed) 5 TO 10 Normal 0-5 [facility] Comment on above: Performed By: #### U A, UMICAO #### [facility] [address] [place] [address] Receiver Setter: Brandan Ugalde MD Urine RBC's 5 TO 10 Normal 0-2 [facility] Comment on above: Performed By: #### U A, UMICAO #### [facility] [address] [place] [address] Receiver Setter: Brandan Ugalde MD Urine WBC's 5 TO 10 Normal 0-5 [facility] Comment on above: Performed By: #### U A, UMICAO #### [facility] [address] [place] [address] Receiver Setter: Brandan Ugalde MD Yeast MODERATE Abnormal NONE [facility] Comment on above: Performed By: #### U A, UMICAO #### [facility] [address] [place] [address] Receiver Setter: Brandan Ugalde MD Amorphous sediment LM Ql (Urine sed) NOT REPORTED Normal NONE [facility] Comment on above: Performed By: #### U A UMICAO #### [facility] [address] [place] [address] Receiver Setter: Brandan Ugalde MD Bacteria NOT REPORTED Normal NONE [facility] Comment on above: Performed By: #### U A UMICAO #### [facility] [address] [place] [address] Receiver Setter: Brandan Ugalde MD Crystals LM Nom (Urine sed) NOT REPORTED Normal NONE [facility] Comment on above: Performed By: #### U A, UMICAO #### [facility] [address] [place] [address] Receiver Setter: Brandan Ugalde MD Epithelial, Renal NOT REPORTED Normal 0 [facility] Comment on above: Performed By: #### U A, UMICAO #### [facility] [address] [place] [address] Receiver Setter: Brandan Ugalde MD Mucus Strands NOT REPORTED Normal NONE [facility] Comment on above: Performed By: #### U PRATIBHA Phipps #### [address] [address] Receiver Setter: Brandan Ugalde MD Other Observations NOT REPORTED Normal NREQ [facility] Comment on above: Performed By: #### U PRATIBHA Phipps #### [facility] [employer] [address] [place] [address] Receiver Setter: Brandan Ugalde MD Trichomonas NOT REPORTED Normal NONE [facility] Comment on above: Performed By: #### U PRATIBHA Phipps #### [address] [address] Receiver Setter: Brandan Ugalde MD Venous Blood Gaseson 022 Body Temp. 37.0 Normal [facility] Comment on above: Performed By: #### V BG #### [address] [address] Receiver Setter: Brandan Ugalde MD Carboxy Hgb 2.2 % Normal 0-5 [facility] Comment on above: Result Comment: Reference Range: Non-Smokers 0-2% Average Smoker 2-4% Heavy Smoker <10% Performed By: #### V BG #### [address] [address] Receiver Setter: Brandan Ugalde MD FIO2 UNKNOWN Normal [facility] Comment on above: Performed By: #### V BG #### [address] [address] Receiver Setter: Brandan Ugalde MD HCO3 (Bld) [Moles/Vol] 17.3 mmol/L Low 24-30 [facility] Comment on above: Performed By: #### V BG #### [address] [place] [address] Receiver Setter: Brandan Ugalde MD Negative Base Excess 8.2 mmol/L High 0.0-2.0 [facility] Comment on above: Performed By: #### V BG #### [address] [address] Receiver Setter: Brandan Ugalde MD Oxygen (Bld) [Partial pressure] 34.0 mm[Hg] Normal 30-50 [facility] Comment on above: Performed By: #### V BG #### [address] [address] Receiver Setter: Brandan Ugalde MD Oxygen saturation in Blood 80.7 % Normal 60.0-85.0 [facility] Comment on above: Performed By: #### V BG #### [address] [address] Receiver Setter: Brandan Ugalde MD pCO2 37.0 Low 39-55 [facility] Comment on above: Performed By: #### V BG #### [address] [address] Receiver Setter: Brandan Ugalde MD pH (Bld) 7.290 [pH] Low 7.320-7.420 [facility] Comment on above: Performed By: #### V BG #### [address] [address] Receiver Setter: Brandan Ugalde MD Bibi Test NOT REPORTED Normal [facility] Comment on above: Performed By: #### V BG #### [address] [address] Receiver Setter: Brandan Ugalde MD Methemoglobin NOT REPORTED Normal 0.0-1.5 [facility] Comment on above: Performed By: #### V BG #### [address] [address] Receiver Setter: Brandan Ugalde MD Mode NOT REPORTED Normal [facility] Comment on above: Performed By: #### V BG #### [address] [address] Receiver Setter: Brandan Ugalde MD Notification Time NOT REPORTED Normal [facility] Comment on above: Performed By: #### V BG #### [address] [address] Receiver Setter: Brandan Ugalde MD Notification: NOT REPORTED Normal [facility] Comment on above: Performed By: #### V BG #### [address] [address] Receiver Setter: Brandan Ugalde MD O2 Device/Flow/% NOT REPORTED Normal [facility] Comment on above: Performed By: #### V BG #### [address] [address] Receiver Setter: Brandan Ugalde MD Oxyhemoglobin NOT REPORTED Normal 95.0-98.0 [facility] Comment on above: Performed By: #### V BG #### [address] [address] Receiver Setter: Brandan Ugalde MD Pco2 Adj'd for Temp. NOT REPORTED Normal 39-55 [facility] Comment on above: Performed By: #### V BG #### [address] [address] Receiver Setter: Brandan Ugalde MD PEEP/CPAP NOT REPORTED Normal [facility] Comment on above: Performed By: #### V BG #### [address] [address] Receiver Setter: Brandan Ugalde MD pH Adjst'd for Temp. NOT REPORTED Normal 7.320-7.420 [facility] Comment on above: Performed By: #### V BG #### [facility] [employer] [address] [place] [address] Receiver Setter: Brandan Ugalde MD pO2 Adj'd for Temp. NOT REPORTED Normal 30-50 [facility] Comment on above: Performed By: #### V BG #### [address] [address] Receiver Setter: Brandan Ugalde MD Positive Base Excess NOT REPORTED Normal 0.0-2.0 [facility] Comment on above: Performed By: #### V BG #### [address] [address] Receiver Setter: Brandan Ugalde MD PSV NOT REPORTED Normal [facility] Comment on above: Performed By: #### V BG #### [address] [address] Receiver Setter: Brandan Ugalde MD Pt. Position NOT REPORTED Normal [facility] Comment on above: Performed By: #### V BG #### [address] [address] Receiver Setter: Brandan Ugalde MD Respiratory Rate NOT REPORTED Normal [facility] Comment on above: Performed By: #### V BG #### [facility] [employer] [address] [place] [address] Receiver Setter: Brandan Ugalde MD Set Rate NOT REPORTED Normal [facility] Comment on above: Performed By: #### V BG #### [facility] [employer] [address] [place] [address] Receiver Setter: Brandan Ugalde MD Site Drawn NOT REPORTED Normal [facility] Comment on above: Performed By: #### V BG #### [facility] [employer] [address] [place] [address] [phone] Receiver Setter: Brandan Ugalde MD Text for Respiratory NOT REPORTED Normal [facility] Comment on above: Performed By: #### V BG #### [facility] [place], [place] [phone] Receiver Setter: Brandan Ugalde MD Total Hb NOT REPORTED Normal 12.0-16.0 [facility] Comment on above: Performed By: #### V BG #### [facility] [employer] [address] [place] [address] [phone] Receiver Setter: Brandan Ugalde MD Total Rate NOT REPORTED Normal [facility] Comment on above: Performed By: #### V BG #### [facility] [employer] [address] [place] [address] [phone] Receiver Setter: Brandan Ugalde MD VT NOT REPORTED Normal [facility] Comment on above: Performed By: #### V BG #### [facility] [address] [place] [address] [phone] Receiver Setter: Brandan Ugalde MD XR CHEST PORTABLEon 09-28-19 [...] Perla Sommer MD 09/28/21 Final result Normal [facility] Bilateral scattered pulmonary opacities consistent [...] or extrapleural air is noted. [facility] RIS HASMUKH Sommer, Perla Carlson MD - 09/28/2021 EXAMINATION: ONE XRAY VIEW [...] with multifocal airspace disease/pneumonia. No extrapleural air. [employer]: Radiology Study observation (narrative) [employer] Phone: XR CHEST PORTABLEOrdered By: Perla Sommer on 09-28-2021 [employer] Phone: ANKLE LEFT MIN 3 VIEWS Mon [...] Ho MD On: 05/23/2021 1:42 PM Normal [facility] Consent for Treatmenton Consent for Treatment [phone] [id number] Normal [facility] ED Clinical Summaryon 2020 ED Clinical Summary [place] [id number] ED Clinical Summary Person Information Name: CARISSA SANTOS [place] Age: 40 Years : 1980 Sex: Female Language: Vietnamese PCP: DIAZ DALTON MD Marital Status: Visit [...] 02:47:40 02/06/2021 02:47:40 02/06/2021 02:47:40 ADDRESS: [address] [place] [id number] PHYS DOC NOTES: MEDICAL INFORMATION: Prescriptions Given: PATIENT EDUCATION INFORMATION: Instructions: Follow up: DIAGNOSIS: Normal [facility] ED Patient Education Noteon 02-06-2021 ED Patient Education Note [facility] ED Patient Summaryon ED Patient Summary [place] [id number] Patient Discharge Instructions Person Information Name: CARISSA SANTOS Age: 40 Years Arrival Date: 02/05/2021 22:28:14 Discharge Diagnosis: Primary Care Physician: DIAZ DALTON MD Provider Information Primary Provider: Loco Marcos MD Advanced Remote Broadcast Engineer:None The exam and treatment you received in the Emergency Department were for an urgent problem and are not intended as complete care. It is important that you follow up with a doctor, nurse practitioner, or physician?s printer floor covering assistant for ongoing care. If your symptoms become [...] opioids can be used to help relieve hzivphuh-lq-[id number] pain and are often prescribed following a [...] be struggling with addiction, tell your health patient care director and ask for guidance or call [facility]?S National Helpline at 9-548-112-QHEV. i Source: [place] Department of Health and Human Services/Center for Disease Control & Prevention [facility] Medications Given: Medication Dose Route No medications found. Medication Inf (more content not included)... Normal [facility] CHEST AND LATERALon 02-05-20 CHEST AND LATERAL [facility] Department of Radiology [address] [place] [id number] == Patient Name: CARISSA SANTOS : [...] spine. Electronically signed: Shama Calvin. Transcribed by: [email or web address], User Resident: Electronically Signed by: SHAMA CALVIN @ 02/04/2021 02:25 PM Normal [facility] Comment on above: Order Comment: ap/la t HUMERUS LEFTon 02-04-2021 HUMERUS LEFT [facility] Department of Radiology [address] [place] [id number] == Patient Name: CAIRSSA SANTOS : 1980 Sex: F Age: Race: White Pt. Location: 84 Patient Status: Ordered Date: 02/04/2021 8:55:00 AM Completed Date: 02/04/2021 09:20 AM Requesting Provider: ALIYA RUIZ Attending Provider: Report Copy To: Signs & Symptoms: R22.32 Localized swelling, mass and lump, left upper limb I10 History: [place] Comments: Evaluate Exam: HUMERUS LEFT == HUMERUS LEFT CLINICAL INFORMATION: Patient complains of left shoulder and humerus pain and swelling for three years COMPARISON: None. IMPRESSION: 1. No fracture or other acute osseous abnormalities identified. No abnormal sclerosis. Electronically signed: Shama Calvin. Transcribed by: [email or web address], User Resident: Electronically Signed by: SHAMA CALVIN @ 02/04/2021 01:59 PM Normal [place] Comment on above: Order Comment: Evalu ate SHOULDER LEFTon 02-04-2021 SHOULDER LEFT [facility] Department of Radiology [address] [place] [id number] == Patient Name: CARISSA SANTOS : [...] sclerosis. Electronically signed: Shama Calvin. Transcribed by: [email or web address], User Resident: Electronically Signed by: SHAMA CALVIN @ 02/04/2021 01:58 PM Normal [place] Comment on above: Order Comment: Evalu ate Vital Signs Date Time Vital Sign Value Performing Clinician Facility 04-14-2025 13:38-0400 Body mass index (BMI) [Ratio] 39.07 kg/m2 Feliz Demar DO Work Phone: [facility] 04-14-2025 13:38-0400 Body weight 93.78 kg Feliz Demar DO Work Phone: [facility] 04-14-2025 13:38-0400 Diastolic blood pressure 90 mm[Hg] Feliz Demar DO Work Phone: [facility] 04-14-2025 13:38-0400 Systolic blood pressure 122 mm[Hg] Feliz Demar DO Work Phone: [facility] 03-17-2025 13:48-0400 Body mass index (BMI) [Ratio] 40.25 kg/m2 Feliz Demar DO Work Phone: [facility] 03-17-2025 13:48-0400 Body weight 96.62 kg Feliz Demar DO Work Phone: [facility] 03-17-2025 13:48-0400 Diastolic blood pressure 70 mm[Hg] Feliz Demar DO Work Phone: [facility] 03-17-2025 13:48-0400 Systolic blood pressure 120 mm[Hg] Feliz Demar DO Work Phone: [facility] 03-13-2025 09:01-0400 Body height 154.9 cm Lindsay Arrieta DO Work Phone: [facility] 03-13-2025 09:01-0400 Body mass index (BMI) [Ratio] 40.43 kg/m2 Lindsay Montalvoton DO Work Phone: [facility] 03-13-2025 09:01-0400 Body weight 97.07 kg Lindsay Arrieta DO Work Phone: [facility] 03-13-2025 09:01-0400 Diastolic blood pressure 77 mm[Hg] Lindsay Montalvoton DO Work Phone: [facility] 03-13-2025 09:01-0400 Heart rate 81 /min Lindsay Arrieta DO Work Phone: [facility] 03-13-2025 09:01-0400 SaO2% (BldA) [Mass fraction] 100 % Lindsay Arrieta DO Work Phone: [facility] Comment on above: 3 liters 03-13-2025 09:01-0400 Systolic blood pressure 131 mm[Hg] Lindsay Arrieta DO Work Phone: [facility] 02-10-2025 13:23-0400 Body height 154.9 cm Diaz Dalton MD Work Phone: [facility] 02-10-2025 13:23-0400 Body mass index (BMI) [Ratio] 40.25 kg/m2 Diaz Dalton MD Work Phone: [facility] 02-10-2025 13:23-0400 Body temperature 97.3 [degF] Diaz Dalton MD Work Phone: [facility] 02-10-2025 13:23-0400 Body weight 96.62 kg Diaz Dalton MD Work Phone: [facility] 02-10-2025 13:23-0400 Diastolic blood pressure 78 mm[Hg] Diaz Dalton MD Work Phone: [facility] 02-10-2025 13:23-0400 Heart rate 85 /min Diaz Dalton MD Work Phone: [facility] 02-10-2025 13:23-0400 Respiratory rate 20 /min Diaz Dalton MD Work Phone: [facility] 02-10-2025 13:23-0400 SaO2% (BldA) [Mass fraction] 98 % Diaz Dalton MD Work Phone: [facility] 02-10-2025 13:23-0400 Systolic blood pressure 142 mm[Hg] Diaz Dalton MD Work Phone: [facility] 01-03-2025 08:08-0400 Body height 154.9 cm Katelyn Recio MD Work Phone: [facility] 01-03-2025 08:08-0400 Body mass index (BMI) [Ratio] 41.38 kg/m2 Katelyn Recio MD Work Phone: [facility] 01-03-2025 08:08-0400 Body weight 99.34 kg Katelyn Recio MD Work Phone: [facility] 01-03-2025 08:08-0400 Diastolic blood pressure 78 mm[Hg] Katelyn Recio MD Work Phone: [facility] 01-03-2025 08:08-0400 Heart rate 76 /min Katelyn Recio MD Work Phone: [facility] 01-03-2025 08:08-0400 SaO2% (BldA) [Mass fraction] 100 % Katelyn Recio MD Work Phone: [facility] 01-03-2025 08:08-0400 Systolic blood pressure 116 mm[Hg] Katelyn Recio MD Work Phone: [facility] 12-04-2024 13:04-0400 Body height 154.9 cm Pacheco Madrigal C CONSULTANT-TAX EXAMINING TECHNICIAN Work Phone: [facility] 12-04-2024 13:04-0400 Body mass index (BMI) [Ratio] 40 kg/m2 Pacheco Madrigal APRN-TAX EXAMINING TECHNICIAN Work Phone: [facility] 12-04-2024 13:04-0400 Body weight 96.03 kg Pacheco Madrigal APRN-TAX EXAMINING TECHNICIAN Work Phone: [facility] 12-04-2024 13:04-0400 Diastolic blood pressure 64 mm[Hg] Pacheco Madrigal C CONSULTANT-TAX EXAMINING TECHNICIAN Work Phone: [facility] 12-04-2024 13:04-0400 Heart rate 87 /min Pacheco Madrigal C CONSULTANT-TAX EXAMINING TECHNICIAN Work Phone: [facility] 12-04-2024 13:04-0400 SaO2% (BldA) [Mass fraction] 98 % Pacheco Madrigal C CONSULTANT-TAX EXAMINING TECHNICIAN Work Phone: [facility] Comment on above: Arrived on 3Lnc of O2 12-04-2024 13:04-0400 Systolic blood pressure 99 mm[Hg] Pacheco Madrigal APRN-TAX EXAMINING TECHNICIAN Work Phone: [facility] 11-07-2024 09:57-0500 Body mass index (BMI) [Ratio] 41.57 kg/m2 Diaz Dalton MD Work Phone: [facility] 11-07-2024 09:57-0500 Body temperature 97.7 [degF] Diaz Dalton MD Work Phone: [facility] 11-07-2024 09:57-0500 Body weight 99.79 kg Diaz Dalton MD Work Phone: [facility] 11-07-2024 09:57-0500 Diastolic blood pressure 62 mm[Hg] Diaz Dalton MD Work Phone: [facility] 11-07-2024 09:57-0500 Heart rate 85 /min Diaz Dalton MD Work Phone: [facility] 11-07-2024 09:57-0500 SaO2% (BldA) [Mass fraction] 95 % Diaz Dalton MD Work Phone: [facility] 11-07-2024 09:57-0500 Systolic blood pressure 100 mm[Hg] Diaz Dalton MD Work Phone: [facility] 10-28-2024 14:08-0500 Body mass index (BMI) [Ratio] 41 kg/m2 Diaz Dalton MD Work Phone: [facility] 10-28-2024 14:08-0500 Body temperature 97.81 [degF] Diaz Dalton MD Work Phone: [facility] 10-28-2024 14:08-0500 Body weight 98.43 kg Diaz Dalton MD Work Phone: [facility] 10-28-2024 14:08-0500 Diastolic blood pressure 60 mm[Hg] Diaz Dalton MD Work Phone: [facility] 10-28-2024 14:08-0500 Heart rate 96 /min Diaz Dalton MD Work Phone: [facility] 10-28-2024 14:08-0500 SaO2% (BldA) [Mass fraction] 96 % Diaz Dalton MD Work Phone: [facility] 10-28-2024 14:08-0500 Systolic blood pressure 100 mm[Hg] Diaz Dalton MD Work Phone: [facility] 10-09-2024 13:23-0500 Body height 154.9 cm Carmen Bowman DPM Work Phone: [facility] 10-09-2024 13:23-0500 Body mass index (BMI) [Ratio] 42.89 kg/m2 Carmen Bowman DPM Work Phone: [facility] 10-09-2024 13:23-0500 Body weight 102.97 kg Carmen Bowman DPM Work Phone: [facility] 10-07-2024 07:57-0500 Body height 154.9 cm Katelyn Recio MD Work Phone: [facility] 10-07-2024 07:57-0500 Body mass index (BMI) [Ratio] 41.76 kg/m2 Katelyn Recio MD Work Phone: [facility] 10-07-2024 07:57-0500 Body weight 100.25 kg Katelyn Recio MD Work Phone: [facility] 10-07-2024 07:57-0500 Diastolic blood pressure 70 mm[Hg] Katelyn Recio MD Work Phone: [facility] 10-07-2024 07:57-0500 Heart rate 97 /min Katelyn Recio MD Work Phone: [facility] 10-07-2024 07:57-0500 SaO2% (BldA) [Mass fraction] 97 % Katelyn Recio MD Work Phone: [facility] 10-07-2024 07:57-0500 Systolic blood pressure 102 mm[Hg] Katelyn Recio MD Work Phone: [facility] 09-05-2024 11:26-0500 Body height 154.[address] [facility] 09-05-2024 11:26-0500 Body mass index (BMI) [Ratio] 41.38 kg/m2 [facility] [address] [facility] 09-05-2024 11:26-0500 Body weight 99.[address] [facility] 08-06-2024 20:01-0500 Body height 154.[address] [facility] 08-06-2024 20:01-0500 Body mass index (BMI) [Ratio] 44.97 kg/m2 [facility] 08-06-2024 20:01-0500 Body weight 107.[address] [facility] 08-06-2024 11:33-0500 Body height 154.9 cm Diaz Dalton MD Work Phone: [facility] 08-06-2024 11:33-0500 Body mass index (BMI) [Ratio] 42.89 kg/m2 Diaz Dalton MD Work Phone: [facility] 08-06-2024 11:33-0500 Body temperature 97.11 [degF] Diaz Dalton MD Work Phone: [facility] 08-06-2024 11:33-0500 Body weight 102.97 kg Diaz Dalton MD Work Phone: [facility] 08-06-2024 11:33-0500 Diastolic blood pressure 90 mm[Hg] Diaz Dalton MD Work Phone: [facility] 08-06-2024 11:33-0500 Heart rate 102 /min Diaz Dalton MD Work Phone: [facility] 08-06-2024 11:33-0500 Respiratory rate 22 /min Diaz Dalton MD Work Phone: [facility] 08-06-2024 11:33-0500 SaO2% (BldA) [Mass fraction] 98 % Diaz Dalton MD Work Phone: [facility] 08-06-2024 11:33-0500 Systolic blood pressure 142 mm[Hg] Diaz Dalton MD Work Phone: [facility] 07-18-2024 11:06-0500 Body height 154.9 cm Hair See MD Work Phone: [facility] 07-18-2024 11:06-0500 Body mass index (BMI) [Ratio] 44.18 kg/m2 Hair See MD Work Phone: [facility] 07-18-2024 11:06-0500 Body weight 106.05 kg Hair See MD Work Phone: [facility] 07-18-2024 11:06-0500 Diastolic blood pressure 94 mm[Hg] Hair See MD Work Phone: [facility] 07-18-2024 11:06-0500 Heart rate 90 /min Hair See MD Work Phone: [facility] 07-18-2024 11:06-0500 SaO2% (BldA) [Mass fraction] 99 % Hair See MD Work Phone: [facility] 07-18-2024 11:06-0500 Systolic blood pressure 128 mm[Hg] Hair See MD Work Phone: [facility] 07-04-2024 09:10-0400 Diastolic blood pressure 84 mm[Hg] [facility] Nurse [facility] 07-04-2024 09:10-0400 Heart rate 90 /min [facility] Nurse [facility] 07-04-2024 09:10-0400 Systolic blood pressure 148 mm[Hg] [facility] Nurse [facility] 06-13-2024 12:59-0400 Body height 154.9 cm Lindsay Arrieta DO Work Phone: [facility] 06-13-2024 12:59-0400 Body mass index (BMI) [Ratio] 43.42 kg/m2 Lindsay Arrieta DO Work Phone: [facility] 06-13-2024 12:59-0400 Body weight 104.24 kg Lindsay Arrieta DO Work Phone: [facility] 06-13-2024 12:59-0400 Diastolic blood pressure 73 mm[Hg] Lindsay Arrieta DO Work Phone: [facility] 06-13-2024 12:59-0400 Heart rate 93 /min Lindsay Arrieta DO Work Phone: [facility] 06-13-2024 12:59-0400 SaO2% (BldA) [Mass fraction] 100 % Lindsay Arrieta DO Work Phone: [facility] Comment on above: Arrived on 3Lnc of O2 06-13-2024 12:59-0400 Systolic blood pressure 136 mm[Hg] Lindsay Arrieta DO Work Phone: [facility] 05-30-2024 14:16-0400 Body height 154.9 cm Arianna Paul ARENAS Work Phone: [facility] 05-30-2024 14:16-0400 Body mass index (BMI) [Ratio] 41.38 kg/m2 Arianna Miller DO Work Phone: [facility] 05-30-2024 14:16-0400 Body weight 99.34 kg Arianna Paul DO Work Phone: [facility] 05-29-2024 09:57-0400 Body height 154.9 cm Diaz Dalton MD Work Phone: [facility] 05-29-2024 09:57-0400 Body mass index (BMI) [Ratio] 41.38 kg/m2 Diaz Dalton MD Work Phone: [facility] 05-29-2024 09:57-0400 Body temperature 97.5 [degF] Diaz Dalton MD Work Phone: [facility] 05-29-2024 09:57-0400 Body weight 99.34 kg Diaz Dalton MD Work Phone: [facility] 05-29-2024 09:57-0400 Diastolic blood pressure 76 mm[Hg] Diaz Dalton MD Work Phone: [facility] 05-29-2024 09:57-0400 Heart rate 90 /min Diaz Dalton MD Work Phone: [facility] 05-29-2024 09:57-0400 Respiratory rate 20 /min Diaz Dalton MD Work Phone: [facility] 05-29-2024 09:57-0400 SaO2% (BldA) [Mass fraction] 99 % Diaz Dalton MD Work Phone: [facility] 05-29-2024 09:57-0400 Systolic blood pressure 128 mm[Hg] Diaz Dalton MD Work Phone: [facility] 05-13-2024 14:07-0400 Body height 154.9 cm Diaz Dalton MD Work Phone: [facility] 05-13-2024 14:07-0400 Body mass index (BMI) [Ratio] 42.32 kg/m2 Diaz Dalton MD Work Phone: [facility] 05-13-2024 14:07-0400 Body temperature 97.3 [degF] Diaz Dalton MD Work Phone: [facility] 05-13-2024 14:07-0400 Body weight 101.61 kg Diaz Dalton MD Work Phone: [facility] 05-13-2024 14:07-0400 Diastolic blood pressure 70 mm[Hg] Diaz Dalton MD Work Phone: [facility] 05-13-2024 14:07-0400 Heart rate 102 /min Diaz Dalton MD Work Phone: [facility] 05-13-2024 14:07-0400 Respiratory rate 20 /min Diaz Dalton MD Work Phone: [facility] 05-13-2024 14:07-0400 SaO2% (BldA) [Mass fraction] 98 % Diaz Dalton MD Work Phone: [facility] 05-13-2024 14:07-0400 Systolic blood pressure 164 mm[Hg] Diaz Dalton MD Work Phone: [facility] 04-24-2024 13:42-0400 Body mass index (BMI) [Ratio] 42.7 kg/m2 Feliz Demar DO Work Phone: [facility] 04-24-2024 13:42-0400 Body weight 102.51 kg Feliz Demar DO Work Phone: [facility] 04-24-2024 13:42-0400 Diastolic blood pressure 84 mm[Hg] Feliz Demar DO Work Phone: [facility] 04-24-2024 13:42-0400 Systolic blood pressure 130 mm[Hg] Feliz Demar DO Work Phone: [facility] 04-09-2024 10:51-0400 Body height 154.9 cm Smitha Germain MD Work Phone: [facility] 04-09-2024 10:51-0400 Body mass index (BMI) [Ratio] 43.58 kg/m2 Smitha Germain MD Work Phone: [facility] 04-09-2024 10:51-0400 Body weight 104.55 kg Smitha Germain MD Work Phone: [facility] 04-09-2024 10:51-0400 Diastolic blood pressure 84 mm[Hg] Smitha Germain MD Work Phone: [facility] 04-09-2024 10:51-0400 Heart rate 90 /min Smitha Germain MD Work Phone: [facility] 04-09-2024 10:51-0400 SaO2% (BldA) [Mass fraction] 100 % Smitha Germain MD Work Phone: [facility] Comment on above: Arrived on 2Lnc of O2 04-09-2024 10:51-0400 Systolic blood pressure 134 mm[Hg] Smitha Germain MD Work Phone: [facility] 02-08-2024 08:58-0400 Body height 154.9 cm Lindsay Arrieta DO Work Phone: [facility] 02-08-2024 08:58-0400 Body mass index (BMI) [Ratio] 44.11 kg/m2 Lindsay Arrieta DO Work Phone: [facility] 02-08-2024 08:58-0400 Body weight 105.82 kg Lindsay Arrieta DO Work Phone: [facility] 02-08-2024 08:58-0400 Diastolic blood pressure 87 mm[Hg] Lindsay Arrieta DO Work Phone: [facility] 02-08-2024 08:58-0400 Heart rate 80 /min Lindsay Arrieta DO Work Phone: [facility] 02-08-2024 08:58-0400 SaO2% (BldA) [Mass fraction] 98 % Lindsay Arrieta DO Work Phone: [facility] 02-08-2024 08:58-0400 Systolic blood pressure 139 mm[Hg] Lindsay Arrieta DO Work Phone: [facility] 12-23-2023 11:37-0400 Diastolic blood pressure 85 mm[Hg] Ezequiel Graff MD Work Phone: [facility] 12-23-2023 11:37-0400 Heart rate 81 /min Ezequiel Graff MD Work Phone: [facility] 12-23-2023 11:37-0400 Respiratory rate 16 /min Ezequiel Graff MD Work Phone: [facility] 12-23-2023 11:37-0400 SaO2% (BldA) [Mass fraction] 97 % Ezequiel Graff MD Work Phone: [facility] 12-23-2023 11:37-0400 Systolic blood pressure 107 mm[Hg] Ezequiel Graff MD Work Phone: [facility] 12-23-2023 07:00-0400 Body temperature 97.9 [degF] Ezequiel Graff MD Work Phone: [facility] 12-23-2023 05:05-0400 Body mass index (BMI) [Ratio] 42.65 kg/m2 Ezequiel Graff MD Work Phone: [facility] 12-23-2023 05:05-0400 Body weight 102.33 kg Ezequiel Graff MD Work Phone: [facility] 12-20-2023 21:17-0400 Body height 154.9 cm Ezequiel Graff MD Work Phone: [facility] 11-15-2023 09:05-0400 Body height 154.[address] [facility] 11-15-2023 09:05-0400 Body mass index (BMI) [Ratio] 41.38 kg/m2 [facility] 11-15-2023 09:05-0400 Body weight 99.[address] [facility] 11-10-2023 11:07-0500 Body height 154.9 cm Libby Finley MD Work Phone: [facility] 11-10-2023 11:07-0500 Body mass index (BMI) [Ratio] 43.27 kg/m2 Libby Finley MD Work Phone: [facility] 11-10-2023 11:07-0500 Body weight 103.87 kg Libby Finley MD Work Phone: [facility] 11-10-2023 11:07-0500 Diastolic blood pressure 81 mm[Hg] Libby Finley MD Work Phone: [facility] 11-10-2023 11:07-0500 Heart rate 100 /min Libby Finley MD Work Phone: [facility] 11-10-2023 11:07-0500 Systolic blood pressure 122 mm[Hg] Libby Finley MD Work Phone: [facility] 11-09-2023 08:55-0500 Body mass index (BMI) [Ratio] 43.27 kg/m2 Angela Witt MD Work Phone: [facility] 11-09-2023 08:55-0500 Body temperature 97.3 [degF] Angela Witt MD Work Phone: [facility] 11-09-2023 08:55-0500 Body weight 103.87 kg Angela Witt MD Work Phone: [facility] 11-09-2023 08:55-0500 Diastolic blood pressure 81 mm[Hg] Angela Witt MD Work Phone: [facility] 11-09-2023 08:55-0500 Heart rate 103 /min Angela Witt MD Work Phone: [facility] 11-09-2023 08:55-0500 Respiratory rate 18 /min Angela Witt MD Work Phone: [facility] 11-09-2023 08:55-0500 SaO2% (BldA) [Mass fraction] 95 % Angela Witt MD Work Phone: [facility] 11-09-2023 08:55-0500 Systolic blood pressure 129 mm[Hg] Angela Witt MD Work Phone: [facility] 10-03-2021 11:29-0500 Body temperature 97.5 [degF] Jamal Levine MD Work Phone: [facility] 10-03-2021 11:29-0500 Diastolic blood pressure 80 mm[Hg] Jamal Levine MD Work Phone: [facility] 10-03-2021 11:29-0500 Heart rate 85 /min Jamal Levine MD Work Phone: [facility] 10-03-2021 11:29-0500 Respiratory rate 16 /min Jamal Levine MD Work Phone: [facility] 10-03-2021 11:29-0500 SaO2% (BldA) [Mass fraction] 97 % Jamal Levine MD Work Phone: [facility] 10-03-2021 11:29-0500 Systolic blood pressure 126 mm[Hg] Jamal Levine MD Work Phone: [facility] 09-29-2021 06:00-0500 Body mass index (BMI) [Ratio] 43.59 kg/m2 Jamal Levine MD Work Phone: [facility] 09-29-2021 06:00-0500 Body weight 101.24 kg Jamal Levine MD Work Phone: [facility] 09-28-2021 09:30-0500 Body height 152.4 cm Jamal Levine MD Work Phone: [facility] Encounters Encounter Date Encounter Type Care Provider Facility Start: 04-24-2025 End: 04-24-2025 Clinisync Result Encounter Diaz Dalton MD Work Phone: [facility] External Department Unsolicited Start: 04-24-2025 End: 04-24-2025 Clinisync Result Encounter Diaz Dalton MD Work Phone: [facility] External Department Unsolicited Start: 04-22-2025 End: 04-22-2025 Kyler Jackson DO Work Phone: [facility] Start: 04-22-2025 End: 04-22-2025 Bamboo flowsheet Jr. Harinder Lynn Stepanic DO Work Phone: [facility] Start: 04-22-2025 End: 04-22-2025 ambulatory HARINDER FUNEZ STEPANIC Not Available Start: 04-14-2025 End: 04-14-2025 Bamboo flowsheet Feliz Demar DO Work Phone: [facility] Start: 04-14-2025 End: 04-14-2025 Bamboo flowsheet Feliz Demar DO Work Phone: [facility] Start: 04-14-2025 End: 04-14-2025 Office outpatient visit 15 minutes Fleiz Demar DO Work Phone: [facility] Comment on above: Pelvic pain in femal e (Primary Dx); Nausea; Genital warts Start: 04-14-2025 End: 04-14-2025 ambulatory FELIZ DEMAR Not Available Start: 04-10-2025 End: 04-11-2025 ambulatory Fabiola Kelly [facility] Comment on above: Acute pain of left k nee (Primary Dx) Start: 04-10-2025 End: 04-10-2025 Bamboo flowsheet Fabiola Kelly [facility] Start: 04-10-2025 End: 04-10-2025 Bamboo flowsheet Fabiola Boothink [facility] Start: 04-07-2025 End: 04-07-2025 Telephone encounter Ubaldo Herzog [facility] Comment on above: Cx PT 04/07/25 Start: 04-02-2025 End: 04-02-2025 Bamboo flowsheet Fabiolasage Kelly [facility] Start: 04-02-2025 End: 04-02-2025 Bamboo flowsheet Fabiolasage Kelly [facility] Start: 04-02-2025 End: 04-02-2025 ambulatory Fabiola Kelly [facility] Comment on above: Acute pain of left k nee (Primary Dx) Start: 03-28-2025 End: 03-28-2025 Telephone encounter Ubaldo Herzog [facility] Comment on above: re: PT so far Start: 03-27-2025 End: 04-02-2025 Telephone encounter Shama Aldo Medina PA Work Phone: [facility] Comment on above: called and said that therapy is making her pain worse Start: 03-26-2025 End: 03-26-2025 Bamboo flowsheet Ubaldo Herzog [facility] Start: 03-26-2025 End: 03-26-2025 Bamboo flowsheet Ubaldo Herzog [facility] Start: 03-26-2025 End: 03-26-2025 ambulatory Ubaldo Herzog [facility] Comment on above: Acute pain of left k nee (Primary Dx) Start: 03-24-2025 End: 03-24-2025 Refill Silvia Otero RMA [facility] Start: 03-21-2025 End: [...] Not Available Start: 03-14-2025 End: 03-14-2025 Bamboo flowsheet Jr. Harinder Lynn Stepanic DO Work Phone: [facility] Start: 03-14-2025 End: 03-14-2025 Bamboo flowsheet Jr. Harinder C Stepanic DO Work Phone: [facility] Start: 03-14-2025 End: 03-14-2025 Office outpatient visit 15 minutes Jr. Harinder Jackson DO Work Phone: [facility] Comment on above: Acute medial meniscu s tear of left knee, initial encounter (Primary Dx); Acute pain of left knee Start: 03-14-2025 End: 03-14-2025 ambulatory JR., HARINDER JACKSON Not Available Start: 03-13-2025 End: 03-13-2025 Telephone encounter Silvia ROCKWELL [facility] Start: 03-13-2025 End: 03-13-2025 Office outpatient visit 25 minutes [facility] DO Work Phone: [facility] Pulmonary/Sleep Medicine Comment on above: Moderate persistent asthma without complication (Primary Dx); Chronic hypoxic respiratory failure ([facility]-HCC) Start: 03-13-2025 End: 03-13-2025 ambulatory [facility] Start: 03-11-2025 End: 03-11-2025 Telephone encounter [facility] Work Phone: [facility] - Pharmacy Medication Management Start: 03-05-2025 End: 03-05-2025 Telephone encounter Jorge L Givens RN [facility] Card[facility] Comment on above: PPMM referral [...] Start: 02-25-2025 End: 02-25-2025 Bamboo flowsheet Shama KAPLAN Work Phone: [facility] Start: 02-25-2025 End: 02-25-2025 Bamboo flowsheet Shama KAPLAN Work Phone: [facility] Start: 02-25-2025 End: 02-26-2025 Telephone encounter Silvia ROCKWELL [facility] Start: 02-25-2025 End: 02-25-2025 ambulatory SHAMA MEDINA Not Available Start: 02-17-2025 End: 02-17-2025 Telephone encounter Silvia ROCKWELL [facility] Start: 02-10-2025 End: 02-10-2025 Bamboo flowsheet Diaz Dalton MD Work Phone: [facility] Start: 02-10-2025 End: 02-10-2025 Bamboo flowsheet Diaz Dalton MD Work Phone: [facility] Start: 02-10-2025 End: 02-10-2025 ambulatory DIAZ DALTON Not Available Start: 02-10-2025 End: 02-10-2025 Office outpatient visit 25 minutes Diaz Dalton MD Work Phone: [facility] Comment on above: Type 2 diabetes [...] both knees Start: 02-03-2025 End: 02-03-2025 ambulatory [facility] Start: 01-03-2025 End: 01-03-2025 Office outpatient visit 15 minutes Katelyn Recio MD Work Phone: [facility] Card[facility] Comment on above: Chronic heart failur e with preserved ejection fraction ([facility]) (Primary Dx); Primary hypertension; Dyspnea on exertion; Hyperlipidemia associated with type 2 diabetes mellitus ([facility]) Start: 01-03-2025 End: 01-03-2025 ambulatory [facility] Start: 01-02-2025 End: 01-02-2025 Telephone encounter Bethanie Patricia [facility] Card[facility] Start: 12-09-2024 End: 12-09-2024 Telephone encounter Silvia Otero [facility] Pulmonary/Sleep Medicine Start: 12-04-2024 End: 12-04-2024 Office outpatient visit 25 minutes [facility] CONSULTANT-TAX EXAMINING TECHNICIAN Work Phone: [facility] Pulmonary/Sleep Medicine Comment on above: Obstructive sleep ap diana syndrome (Primary Dx); Noncompliance with CPAP treatment; Chronic hypoxic respiratory failure, on home oxygen therapy ([facility]); Obesity, Class III, BMI 40-49.9 (morbid obesity) ([facility]) Start: 12-04-2024 End: 12-04-2024 [facility] Start: 11-07-2024 End: [...] hyperglycemia, with long-term current use of insulin ([facility]/HCC) (Primary Dx); Chronic heart failure with preserved ejection fraction (HFpEF) ([facility]); Mild episode of recurrent major depressive disorder (HCC) ([facility]/HCC); JOHN (generalized anxiety disorder) ([facility]); Gastroesophageal reflux disease without esophagitis; Class 3 severe obesity due to excess calories with serious comorbidity and body mass index (BMI) of 40.0 to 44.9 in adult ([facility]) Start: 11-07-2024 End: 11-07-2024 ambulatory DIAZ DALTON Not Available Start: 11-01-2024 End: 11-01-2024 External Result Encounter Diaz Dalton MD Work Phone: [facility] External Department Unsolicited Start: 11-01-2024 End: 11-01-2024 External Result Encounter Diaz Dalton MD Work Phone: [facility] External Department Unsolicited Start: 11-01-2024 End: 11-01-2024 ambulatory DIAZ DALTON [facility] Start: 10-28-2024 End: 10-28-2024 Office outpatient visit 25 minutes Diaz Dalton MD Work Phone: [facility] Comment on above: Dehydration (Primary Dx); Nausea and vomiting, unspecified vomiting type; Type 2 diabetes mellitus with hyperglycemia, with long-term current use of insulin ([facility]); Class 3 severe obesity due to excess calories with serious comorbidity and body mass index (BMI) of 40.0 to 44.9 in adult ([facility]); Chronic hypoxic respiratory failure ([facility]/HCC); Chronic heart failure with preserved ejection fraction (HFpEF) ([facility]) Start: 10-28-2024 End: 10-28-2024 Bamboo flowsheet Diaz Dalton MD Work Phone: [facility] Start: 10-28-2024 End: 10-28-2024 Bamboo flowsheet Diaz Dalton MD Work Phone: [facility] Start: 10-28-2024 End: 10-28-2024 ambulatory DIAZ DALTON Not Available Start: 10-27-2024 End: 10-27-2024 Emergency department patient visit [facility] Start: 10-09-2024 End: 10-09-2024 Bamboo flowsheet Carmen Bowman DPM Work Phone: [facility] Start: 10-09-2024 End: 10-09-2024 Bamboo flowsheet Carmen Ger Mike DPM Work Phone: [facility] Start: 10-09-2024 End: 10-09-2024 ambulatory CARMEN BOWMAN Not Available Start: 10-09-2024 End: 10-09-2024 Office outpatient visit 25 minutes Carmen Bowman DPM Work Phone: [facility] Comment on above: Diabetic polyneuropa thy associated with type 2 diabetes mellitus ([facility]/HCC) (Primary Dx); Neuritis Start: 10-07-2024 End: 10-07-2024 Office outpatient visit 25 minutes Katelyn Recio MD Work Phone: [facility] Card[facility] Comment on above: Dyspnea on exertion (Primary Dx); Chronic heart failure with preserved ejection fraction ([facility]); Type 2 diabetes mellitus with hyperglycemia, with long-term current use of insulin ([facility]) Start: 10-07-2024 End: 10-07-2024 ambulatory [facility] Start: 10-04-2024 End: 10-04-2024 Telephone encounter Sue Chow CMA [facility] Card[facility] Start: 09-25-2024 End: 09-25-2024 Refill Diaz Dalton MD Work Phone: [facility] Comment on above: Type 2 diabetes sanjana itus with hyperglycemia, with long-term current use of insulin ([facility]) Start: 09-23-2024 End: 09-23-2024 Refill Diaz Dalton MD Work Phone: [facility] Comment on above: Type 2 diabetes sanjana itus with microalbuminuria, with long-term current use of insulin ([facility]) Start: 09-19-2024 End: 09-19-2024 Refill Diaz Dalton MD Work Phone: [facility] Comment on above: Type 2 diabetes sanjana itus with microalbuminuria, with long-term current use of insulin ([facility]) Start: 09-17-2024 End: 09-17-2024 Telephone encounter Allyson Briscoe [facility] General Surgery Start: 09-12-2024 End: 09-12-2024 Evaluation and management of inpatient DIAZ DALTON [facility] Start: 09-05-2024 End: 09-05-2024 ambulatory [facility] Phone Call Provider 1 [facility] - Pre Admit Start: 09-05-2024 End: 09-05-2024 ambulatory DIAZ DALTON [facility] Start: 08-21-2024 End: 08-22-2024 Refill Diaz Dalton MD Work Phone: [facility] Comment on above: Mild episode of recu rrent major depressive disorder (HCC) ([facility]) Start: 08-15-2024 End: 08-15-2024 Orders Only Diaz [...] 25 minutes Diaz Dalton MD Work Phone: [facility] Comment on above: Chronic hypoxic resp iratory failure (CMS/HCC) (Primary Dx); Chronic heart failure with preserved ejection fraction (HFpEF) ([facility]/HCC); Type 2 diabetes mellitus with hyperglycemia, with long-term current use of insulin ([facility]); Pulmonary hypertension ([facility]/HCC); Colon cancer screening; Gastroesophageal reflux disease without esophagitis Start: 08-06-2024 End: 08-06-2024 Clinical Support Smitha Germain MD Work Phone: [facility] - Sleep Disorders Comment on above: JOSE M (obstructive sle ep apnea); Chronic hypoxic respiratory failure (CMS-HCC); Severe obesity (BMI >= 40) ([facility]) Start: 08-05-2024 End: 08-05-2024 Refill Diaz Dalton MD Work Phone: [facility] Comment on above: Type 2 diabetes sanjana itus with hyperglycemia, with long-term current use of insulin ([facility]) Start: 07-30-2024 End: 07-30-2024 Telephone encounter Shakira Gayle [facility] Comment on above: Abnormal Lab CRITICAL LAB Start: 07-30-2024 End: 07-30-2024 ambulatory Cassy Davila C CONSULTANT-TAX EXAMINING TECHNICIAN Work Phone: [facility] Medical Receptionist Biller Sign In Start: 07-29-2024 End: 07-29-2024 Refill Diaz Dalton MD Work Phone: [facility] Comment on above: Type 2 diabetes sanjana itus with hyperglycemia, with long-term current use of insulin ([facility]) Start: 07-21-2024 End: 07-23-2024 ambulatory DIAZ DALTON [facility] Start: 07-18-2024 End: 07-18-2024 Office outpatient visit 25 minutes Hair See MD Work Phone: [facility] Comment on above: Dyspnea on exertion (Primary Dx); Pulmonary hypertension (CMS-HCC) Start: 07-18-2024 End: 07-18-2024 ambulatory [facility] Start: 07-17-2024 End: 07-17-2024 Telephone encounter [facility] Start: 07-15-2024 End: 07-15-2024 Bamboo flowsheet Barry Snowden [employer] Work Phone: [facility] Start: 07-15-2024 End: 07-15-2024 Bamboo flowsheet Barry Snowden [employer] Work Phone: [facility] Start: 07-15-2024 End: 07-15-2024 Postop follow up visit related to original px Barry Snowden [employer] Work Phone: [facility] Comment on [...] (Primary Dx) Start: 07-04-2024 End: 07-04-2024 ambulatory [facility] Start: 07-03-2024 End: 07-03-2024 Telephone encounter [facility] Start: 06-28-2024 End: 06-29-2024 Emergency department patient visit [facility] Start: 06-24-2024 End: 06-24-2024 Bamboo flowsheet Barry Snowden [employer] Work Phone: [facility] Start: 06-24-2024 End: 06-24-2024 Bamboo flowsheet Barry Snowden [employer] Work Phone: [facility] Start: 06-24-2024 End: 06-24-2024 Postop follow up visit related to original px Barry Snowden [employer] Work Phone: [facility] Comment on above: Status post carpal t unnel release (Primary Dx) Start: 06-24-2024 End: 06-24-2024 ambulatory BARRY SNOWDEN Not Available Start: 06-20-2024 End: 06-20-2024 Telephone encounter Rochelle Lovell RN [facility] Comment on above: Cardiac Cath Start: 06-20-2024 End: 06-20-2024 ambulatory [facility] Start: 06-19-2024 End: 06-19-2024 Telephone encounter Bethanie Patricia CMA [facility] Start: 06-18-2024 End: 07-15-2024 Telephone encounter Arianna Miller DO Work Phone: [facility] Start: 06-17-2024 End: 06-17-2024 ambulatory Arianna Miller Facility:[facility] Start: 06-14-2024 End: 06-14-2024 Refill Barry Snowden [employer] Work Phone: [facility] Comment on above: Post-operative pain (Primary Dx) Start: 06-13-2024 End: 06-13-2024 Office outpatient visit 25 minutes Lindsay Arrieta DO Work Phone: [facility] Comment on above: Moderate persistent asthma without complication (Primary Dx); Obstructive sleep apnea syndrome; Pulmonary nodule; Chronic hypoxic respiratory failure ([facility]) Start: 06-13-2024 End: 06-13-2024 ambulatory [facility] Amb[facility] Start: 06-07-2024 End: 06-07-2024 Telephone encounter Diaz Dalton MD Work Phone: [facility] Start: 06-03-2024 End: 06-07-2024 Telephone encounter Arianna Phipps Paul DO Work Phone: [facility] Comment on above: medical clearance Start: 05-30-2024 End: 05-30-2024 Office outpatient visit 15 minutes Arianna Phipps Paul DO Work Phone: [facility] Comment on above: Right wrist pain; Carpal tunnel syndrome, right Start: 05-30-2024 End: 05-30-2024 ambulatory ARIANNA MILLER Not Available Start: 05-30-2024 End: 05-30-2024 Bamboo flowsheet Arianna Miller DO Work Phone: [facility] Start: 05-30-2024 End: 05-30-2024 Bamboo flowsheet Arianna Miller DO Work Phone: [facility] Start: 05-29-2024 End: 05-29-2024 Bamboo [...] microalbuminuria, with long-term current use of insulin ([facility]); Right carpal tunnel syndrome Start: 05-29-2024 End: 05-29-2024 ambulatory DIAZ DALTON Not Available Start: 05-28-2024 End: 05-28-2024 [facility] Start: 05-28-2024 End: 05-28-2024 ambulatory DIAZ DALTON [facility] Start: 05-27-2024 End: 05-27-2024 Telephone encounter Bethanie Patricia [facility] Start: 05-16-2024 End: 05-17-2024 Emergency department patient visit DIAZ DALTON [facility] Start: 05-15-2024 End: 05-16-2024 Refill Diaz Dalton MD Work Phone: [facility] Comment on above: Type 2 diabetes sanjana itus with hyperglycemia, with long-term current use of insulin ([facility]) (Primary Dx); Carpal tunnel syndrome of left wrist; Anxiety state (CMS/HCC) Start: 05-14-2024 End: 05-14-2024 ambulatory DIAZ DALTON [facility] Start: 05-13-2024 End: 05-13-2024 Bamboo flowsheet Diaz Dalton MD Work Phone: [facility] Start: 05-13-2024 End: 05-13-2024 Bamboo flowsheet Diaz Dalton MD Work Phone: [facility] Start: 05-13-2024 End: 05-13-2024 Office outpatient visit 25 minutes Diaz Dalton MD Work Phone: [facility] Comment on above: Type 2 diabetes sanjana itus with hyperglycemia, with long-term current use of insulin (CMS/HCC) (Primary Dx); Right carpal tunnel syndrome; Chronic hypoxic respiratory failure (CMS/HCC); Mild episode of recurrent major depressive disorder (HCC) (CMS/HCC); JOHN (generalized anxiety disorder) (CMS/HCC); Generalized edema; Spondylosis without myelopathy; 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 elsewhere ([facility]CC) Start: 05-13-2024 End: 05-13-2024 ambulatory IDAZ DALTON Not Available Start: 05-07-2024 End: 05-07-2024 Telephone encounter Silvia Otero [facility] Pulmonary/Sleep Medicine Comment on above: Chronic hypoxic resp iratory failure (CMS-HCC) (Primary Dx); SOB (shortness of breath); Hypoxia Start: 04-24-2024 End: 04-24-2024 Bamboo flowsheet Feliz Benz DO Work Phone: [facility] Start: 04-24-2024 End: 04-24-2024 Bamboo flowsheet Feliz Demar DO Work Phone: [facility] Start: 04-24-2024 End: 04-24-2024 Office outpatient visit 15 minutes Feliz Demar DO Work Phone: [facility] Comment on above: Encounter to discuss test results Start: 04-24-2024 End: 04-24-2024 ambulatory FELIZ SHELLEYZIO Not Available Start: 04-23-2024 End: 04-23-2024 ambulatory [facility] Start: 04-22-2024 End: 04-24-2024 ambulatory [facility] Start: 04-18-2024 End: 08-21-2024 Telephone encounter Adriane QIU [facility] Start: 04-16-2024 End: 04-16-2024 ambulatory Arianna Miller Facility:[facility] Start: 04-15-2024 End: 04-17-2024 Refill Katelyn Recio MD Work Phone: [facility] Card[facility] Comment on above: Med Refill Start: 04-10-2024 End: 04-10-2024 Telephone encounter Smitha Germain MD Work Phone: [facility] - Sleep Disorders Comment on above: Sleep Lab (Comp PSG/ PAP) Start: 04-09-2024 End: 04-09-2024 Office outpatient visit 15 minutes Smitha Germain MD Work Phone: [facility] Pulmonary[facility]Sleep Medicine Comment on above: JOSE M (obstructive sle ep apnea) (Primary Dx); Chronic hypoxic respiratory failure (CMS-HCC); Severe obesity (BMI >= 40) ([facility]) Start: 04-09-2024 End: 04-09-2024 Orders Only Silvia ROCKWELL [facility] Pul[facility]Sleep Medicine Comment on above: Chronic hypoxic resp iratory failure ([facility]) (Primary Dx); SOB (shortness of breath); Hypoxia Start: 04-03-2024 End: 04-03-2024 ambulatory Arianna Miller Facility:[facility] Start: 03-21-2024 End: 03-21-2024 Orders Only Stella Reyes RN [facility] Comment on above: Moderate persistent asthma without complication Start: 03-18-2024 ambulatory [facility] Start: 03-18-2024 End: 03-18-2024 Phys/qhp telephone evaluation 11-20 min Lindsay Arrieta DO Work Phone: [facility] Comment on above: Chronic hypoxic resp iratory failure (CMS-HCC) (Primary Dx); Obstructive sleep apnea syndrome; Pulmonary nodule; Moderate persistent asthma without complication Start: 03-12-2024 ambulatory LINDSAY ARRIETA [facility] Start: 03-12-2024 End: 03-13-2024 Telephone encounter Lindsay Arrieta DO Work Phone: [facility] Start: 02-26-2024 End: 02-26-2024 Telephone encounter Lindsay Arrieta DO Work Phone: [facility] Start: 02-19-2024 End: 02-19-2024 Orders Only Lindsay Arrieta DO Work Phone: [facility] Comment on above: Dyspnea on exertion (Primary Dx); Chronic hypoxic respiratory failure ([facility]); Moderate persistent asthma without complication Start: 02-15-2024 End: 03-04-2024 ambulatory [facility] Start: 02-13-2024 End: 02-13-2024 [facility] Start: 02-08-2024 End: 02-08-2024 Office outpatient visit 25 minutes Lindsay Arrieta DO Work Phone: [facility] Comment on above: Mediastinal lymphade nopathy (Primary Dx); Hypoxia; Pulmonary nodule; Severe obesity (BMI >= 40) ([facility]); Dyspnea on exertion Start: 01-05-2024 End: 07-10-2024 Telephone encounter Lindsay Arrieta DO Work Phone: [facility] Start: 12-20-2023 End: 12-23-2023 Emergency department patient visit William Kent DO Work Phone: [facility] - Acute Care Comment on above: Hyperglycemia (Prima ry Dx); Acute cystitis without hematuria; Hypoxia Start: 11-28-2023 Telephone encounter Libby wilde MD Work Phone: [facility] Start: 11-23-2023 End: 11-23-2023 Evaluation and management of inpatient [facility] Start: 11-22-2023 End: 11-23-2023 Evaluation and management of inpatient [facility] Start: 11-22-2023 End: 11-22-2023 Evaluation and management of inpatient [facility] Start: 11-15-2023 End: 11-15-2023 [facility] Start: 11-15-2023 End: 11-15-[address] [facility] Phone Call Provider 4 [facility] Start: 11-10-2023 End: 11-10-2023 ambulatory [facility] Start: 11-10-2023 End: 11-10-2023 Office outpatient new 45 minutes Libby Finley MD Work Phone: [facility] Comment on above: Mediastinal lymphade nopathy (Primary Dx); Pulmonary nodule; Morbid obesity (CMS-HCC) Start: 11-09-2023 End: 11-09-2023 ambulatory ANGELA WITT [facility] Comment on above: Mediastinal lymphade nopathy (Primary Dx) Start: 11-09-2023 End: 11-09-2023 Office consultation new/estab patient 60 min Angela Witt MD Work Phone: [facility] Comment on above: Cavitary lesion of l yasmeen Start: 10-24-2023 Documentation procedure Bethanie Covarrubias [facility] Start: 10-10-2023 [facility]ation [facility] Start: 10-10-2023 End: 10-10-2023 Office outpatient visit 15 minutes Feliz Benz DO Work Phone: [facility] Comment on above: Amenorrhea Start: 10-05-2023 End: 10-05-2023 Postop follow up visit related to original px Barry Snowden [employer] Work Phone: [facility] Comment on above: Status post carpal t unnel release (Primary Dx) Start: 09-25-2023 End: 09-25-[address] [facility] Facility:[facility] Start: 09-13-2023 End: 09-13-[address] [facility] Facility:[facility] Start: 09-11-2023 Documentation procedure [facility] Start: 01-10-2023 End: 01-10-2023 ambulatory NICOLÁS WARREN . Facility: Start: 12-26-2022 End: 12-27-[address] FELIZ BENZ . Facility: Start: 12-07-2022 End: 12-07-2022 ambulatory [facility] Start: 11-21-2022 End: 11-21-2022 ambulatory [facility] Start: 11-04-2022 End: 11-04-2022 ambulatory [facility] Start: 09-14-2022 End: 09-15-[address] FELIZ BENZ . Facility:[facility] Start: 07-14-2022 End: 07-14-[address] FELIZ BENZ . Facility:[facility] Start: 06-22-2022 End: 06-23-[address] FELIZ BENZ . Facility:[facility] Start: 02-23-2022 End: 06-23-[address] DIAZ DALTON Facility:[facility] Start: 01-23-2022 End: 01-23-[address] DIAZ DALTON Facility:[facility] Start: 09-30-2021 ambulatory DIAZ DALTON Fa cility:[facility] Start: 09-28-2021 End: 10-03-2021 Evaluation and management of inpatient YAAKOV Fan [facility] Start: 09-28-2021 End: 10-03-2021 Evaluation and management of inpatient Jamal Levine MD Work Phone: [facility] Start: 06-09-2015 End: 08-10-2023 Gynecological examination normal Barry Snowden [employer] Work Phone: [facility] Procedures Date Procedure Procedure Detail Performing Clinician Start: 04-24-2025 ALL CBC WITH AUTO DIFF Diaz Dalton MD Work Phone: Start: 03-04-2025 MR KNEE LT WO CON Shama KAPLAN Work Phone: Start: 02-25-2025 Radiologic examination knee 1/2 views Shama KAPLAN Work Phone: Start: 11-01-2024 Hemoglobin glycosylated a1c Diaz Dalton MD Work Phone: Start: 09-12-2024 Colonoscopy Allyson Briscoe CMA Start: 08-06-2024 IGP,APTIMA HPV,AGE GDLN Feliz Demar [...] Basic metabolic panel calcium total Erin Desire Mendez C CONSULTANT-TAX EXAMINING TECHNICIAN Work Phone: Start: 12-22-2023 End: 12-22-2023 Gluc bld gluc mntr dev cleared fda spec home use Ezequiel Graff MD Work Phone: Start: 12-22-2023 Gluc bld gluc mntr dev cleared fda spec home use Ezequiel Graff MD Work Phone: Start: 12-22-2023 Gluc bld gluc mntr dev cleared fda spec home use Ezequiel Graff MD Work Phone: Start: 12-22-2023 Basic metabolic panel calcium total Erin Desire Vanessa C CONSULTANT-TAX EXAMINING TECHNICIAN Work Phone: Start: 12-21-2023 Gluc bld gluc mntr dev cleared fda spec home use Ezequiel Graff MD Work Phone: Start: 12-21-2023 Gluc bld gluc mntr dev cleared fda spec home use Ezequiel Graff MD Work Phone: Start: 12-21-2023 Gluc bld gluc mntr dev cleared fda spec home use Ezequiel Graff MD Work Phone: Start: 12-21-2023 HOME O2 EVALUATION Eddie Zurita C CONSULTANT- TAX EXAMINING TECHNICIAN Work Phone: Start: 12-21-2023 Glucose quantitative blood xcpt reagent strip Eddie Zurita C CONSULTANT-TAX EXAMINING TECHNICIAN Work Phone: Start: 12-21-2023 Basic metabolic panel calcium total Erin Malinber C CONSULTANT-TAX EXAMINING TECHNICIAN Work Phone: Start: 12-20-2023 Gluc bld gluc mntr dev cleared fda spec home use Ezequiel Graff MD Work Phone: Start: 12-20-2023 PULSE OXIMETRY, SPOT Erin Desire MalinSantee C CONSULTANT-TAX EXAMINING TECHNICIAN Work Phone: Start: 12-20-2023 End: 12-20-2023 Gluc bld gluc mntr dev cleared fda spec home use William Kent DO Work Phone: Start: 12-20-2023 Ketone bodies serum quantitative Dayna Doe C CONSULTANT-TAX EXAMINING TECHNICIAN Work Phone: Start: 12-20-2023 Radiologic exam chest single view Dayna Doe C CONSULTANT-TAX EXAMINING TECHNICIAN Work Phone: Start: 12-20-2023 Urnls dip stick/tablet rgnt auto w/o microscopy William Kent DO Work Phone: Start: 12-20-2023 End: 12-20-2023 Comprehensive metabolic panel Dayna Doe C CONSULTANT-TAX EXAMINING TECHNICIAN Work Phone: Start: 12-20-2023 Culture bacterial quanttative colony count urine Dayna Doe C [facility] Work Phone: Start: 12-20-2023 Ecg routine ecg w/least 12 lds trcg only w/o i&r Dayna oDe C [facility] Work Phone: Start: 08-01-2023 Microscopic [...] MG FOR LOW K Corina R Bedoya C CONSULTANT - [employer] Work Phone: Start: 09-30-2021 SPECIMEN REJECTION Mi [...] combination ph pco2 po2 co2 hco3 Jamal Levien MD Work Phone: Start: 09-29-2021 End: 09-29-2021 Basic metabolic panel calcium total Harmandeep Gironsalome Ahuja MD Work Phone: Start: 09-29-2021 SPECIMEN REJECTION Jose Casarez MD Work Phone: Start: 09-29-2021 Basic metabolic panel calcium total Lesleyandeep Bree Ahuja MD Work Phone: Start: 09-29-2021 Basic metabolic panel calcium total Lesleyandeep Bree Ahuja MD Work Phone: Start: 09-29-2021 Glucose blood reagent strip Jamal Levine MD Work Phone: Start: 09-28-2021 Glucose blood reagent strip Jamal Levine MD Work Phone: Start: 09-28-2021 End: 09-28-2021 Basic metabolic panel calcium total Lesleyandeekarley Bree Ahuja MD Work Phone: Start: 09-28-2021 End: 09-28-2021 Glucose blood reagent strip Jamal Levine MD Work Phone: Start: 09-28-2021 End: 09-28-2021 Basic metabolic panel calcium total Harmandeep Gironsalome Ahuja MD Work Phone: Start: 09-28-2021 End: 09-28-2021 Glucose blood reagent strip Jamal Levine MD Work Phone: Start: 09-28-2021 Glucose blood reagent strip Jamal Levien MD Work Phone: Start: 09-28-2021 End: 09-28-2021 Basic metabolic panel calcium total Harmandeep Bree Ahuja MD Work Phone: Start: 09-28-2021 [...] Status post carpal tunnel release Barry Snowden [employer] Work Phone: History of decompres maria teresa of median nerve Status post carpal tunnel release Barry Snowden [employer] Work Phone: History of decompres maria teresa of median nerve Status post carpal tunnel release Barry Snowden [employer] Work Phone: Plan of Treatment Date Care Activity Detail Author Start: 09-12-2034 Screening for malignant neoplasm of colon [facility] Start: 04-09-2031 DTaP,Tdap and Td Vaccines (2 - Td or Tdap) DTaP,Tdap and Td Vaccines (2 - Td or Tdap) [facility] Start: 04-09-2031 DTaP/Tdap/Td vaccine (2 - Td or Tdap) DTaP/Tdap/Td vaccine (2 - Td or Tdap) [facility] Start: 09-12-2029 Screening for malignant neoplasm of colon Colonoscopy [facility] Start: 08-06-2027 Screening for malignant neoplasm of cervix Pap Smear [facility] Start: 07-14-2027 Screening for malignant neoplasm of cervix [facility] Start: 03-25-2027 Glaucoma screening Diabetes: Retinopathy Screening [facility] Start: 03-20-2027 Glaucoma screening Diabetes: Retinopathy Screening [facility] Start: 12-09-2026 Glaucoma screening Diabetes: Retinopathy Screening [facility] Start: 08-01-2026 Screening for malignant neoplasm of cervix Pap Smear [facility] Start: 03-13-2026 Adult BMI Screening Adult BMI Screening [facility] Start: 01-21-2026 Glaucoma screening Diabetes: Retinopathy Screening [facility] Start: 01-03-2026 Adult BMI Screening Adult BMI Screening [facility] Start: 01-03-2026 Tobacco Screening Tobacco Screening [facility] Start: 12-06-2025 Tobacco Screening Tobacco Screening [facility] Start: 12-04-2025 Adult BMI Screening Adult BMI Screening [facility] Start: 12-04-2025 Tobacco Screening Tobacco Screening [facility] Start: 10-07-2025 Adult BMI Screening Adult BMI Screening [facility] Start: 10-07-2025 Tobacco Screening Tobacco Screening [facility] Start: 09-12-2025 Adult BMI Screening Adult BMI Screening [facility] Start: 09-12-2025 Tobacco Screening Tobacco Screening [facility] Start: 09-05-2025 Adult BMI Screening Adult BMI Screening [facility] Start: 09-05-2025 Tobacco Screening Tobacco Screening [facility] Start: 08-19-2025 End: 08-19-2025 Patient encounter procedure [facility] Start: 08-06-2025 Adult BMI Screening Adult BMI Screening [facility] Start: 08-06-2025 Tobacco Screening Tobacco Screening [facility] Start: 07-23-2025 Adult BMI Screening Adult BMI Screening [facility] Start: 07-21-2025 Tobacco Screening Tobacco Screening [facility] Start: 07-18-2025 Adult BMI Screening Adult BMI Screening [facility] Start: 07-18-2025 Tobacco Screening Tobacco Screening [facility] Start: 07-14-2025 Screening for malignant neoplasm of cervix Pap Smear [facility] Start: 07-07-2025 End: 07-07-2025 Patient encounter procedure 07/07/2025 9:30 AM EST [facility] [address] [place] [phone] Adriane Woods, C CONSULTANT-TAX EXAMINING TECHNICIAN [address] [place] [phone] [facility] Start: 06-30-2025 Screening for malignant neoplasm of breast Mammogram [facility] Start: 06-28-2025 Adult BMI Screening Adult BMI Screening [facility] Start: 06-26-2025 Tobacco Screening Tobacco Screening [facility] Start: 06-20-2025 Adult BMI Screening Adult BMI Screening [facility] Start: 06-20-2025 Tobacco Screening Tobacco Screening [facility] Start: 06-13-2025 Adult BMI Screening Adult BMI Screening [facility] Start: 06-13-2025 Tobacco Screening Tobacco Screening [facility] Start: 06-03-2025 End: 06-03-2025 Patient encounter procedure 06/03/2025 1:30 PM EDT Office Visit [facility] [address] [place] [address] Shama Medina, PA [address] [place] [address] [facility] Start: 05-26-2025 End: 05-26-2025 Patient encounter procedure 05/26/2025 1:20 PM EDT Consult CHELSEY CARRERA [address] [place] [phone] Feliz Benz DO [address] [place] [address] [facility] Start: 05-22-2025 End: 05-22-2025 Patient encounter procedure 05/22/2025 1:30 PM EDT Office Visit [facility] [address] [place] [address] Diaz Dalton MD [address] [place] [phone] [facility] Start: 05-16-2025 Adult BMI Screening Adult BMI Screening [facility] Start: 05-16-2025 Tobacco Screening Tobacco Screening [facility] Start: 05-15-2025 End: 05-15-2025 Patient encounter procedure 05/15/2025 1:00 PM EDT Office Visit [facility] [address] [place] [phone] Diaz Dalton MD [address] [place] [phone] [facility] Start: 05-05-[address] [facility] Start: 05-01-2025 Hemoglobin A1c measurement Diabetes: Hemoglobin A1C [facility] Start: 04-23-2025 Tobacco Screening Tobacco Screening [facility] Start: 04-22-2025 End: 04-22-2025 Patient encounter procedure [facility] Comment on above: Arrived Start: 04-21-2025 End: 04-21-2025 Patient encounter procedure 04/21/2025 2:30 PM EDT Procedure Visit [facility] [address] [place] [address] Feliz Benz DO [address] [place], [place] [phone] [facility] Start: 04-21-2025 End: 04-21-2025 ambulatory [facility] Start: 04-18-2025 End: 04-18-2025 ambulatory [facility] Start: 04-15-2025 End: 04-15-2025 ambulatory [facility] Start: 04-14-2025 End: 10-15-2025 US Pelvis US Pelvis w/ TV Imaging Routine Pelvic pain in female Expected: 04/14/2025, Expires: 10/15/2025 [facility] Work Phone: Comment on above: Expected: 04/14/2025, Expires: Start: 04-14-2025 End: 04-14-2025 Patient encounter procedure [facility] Comment on above: Arrived Start: 04-10-2025 End: 04-10-2025 ambulatory [facility] Start: 04-09-2025 Adult BMI Screening Adult BMI Screening [facility] Start: 04-09-2025 Tobacco Screening Tobacco Screening [facility] Start: 04-08-2025 End: 04-08-2025 Patient encounter procedure [facility] Start: 04-07-2025 End: 04-07-2025 ambulatory [facility] Start: 04-03-2025 End: 04-03-2025 Clinical Support 04/03/2025 11:00 AM EDT Clinical Support [facility] Medication Management [address] [place] [address] [facility] Medication Management Start: 04-02-2025 End: 04-02-2025 ambulatory [facility] Comment on above: Acute pain of left knee (Primary Dx) Start: 03-28-2025 End: 03-28-2025 ambulatory 03/28/2025 12:00 PM EDT Treatment [facility] [address] [place] [address] Ubaldo Herzog, VANDANA [facility] Start: 03-26-2025 End: 03-26-2025 ambulatory [facility] Comment on above: Acute pain of left knee (Primary Dx) Start: 03-21-2025 End: 03-21-2025 ambulatory [facility] Comment on above: Acute pain of left knee Start: 03-20-2025 End: 07-17-2025 Clinical Support 03/20/2025 1:30 PM EDT Clinical Support [facility] Medication Management [address] [place] [address] [facility] Medication Management Start: 03-18-2025 End: 03-18-2025 Patient encounter procedure 03/18/2025 11:00 AM EDT Office Visit [facility] [address] [place] [phone] Shama Medina, PA [address] [facility] [address] [place] [address] [facility] Start: 03-17-2025 End: 03-17-2025 Patient encounter procedure 03/17/2025 2:30 PM EDT Procedure Visit [facility] [address] [place] [phone] Feliz Benz [address] [place] [address] [facility] Start: 03-14-2025 End: 03-14-2025 Patient encounter procedure [facility] Comment on above: Arrived Start: 03-13-2025 End: 03-13-2025 Patient encounter procedure 03/13/2025 9:30 AM EDT Office Visit [facility] [address] [place] [phone] Lindsay Arrieta, [address] [address] [facility] Start: 02-25-2025 End: 02-25-2025 Patient encounter procedure [facility] Comment on above: Acute pain of right knee Start: 02-25-2025 End: 02-25-2026 MR Knee - left WO contrast MR knee left wo IV contrast Imaging Routine Internal derangement of left knee Expected: 02/25/2025 (Approximate), Expires: 02/25/2026 [facility] Work Phone: Comment on above: Expected: 02/25/2025 (Approximate), Expi res: 02/25/2026 Start: 02-10-2025 End: 02-10-2026 Basic metabolic 1998 panel - Serum or Plasma Basic metabolic panel Lab Routine Benign essential hypertension (CMS/HCC) Expected: 02/10/2025 (Approximate), Expires: 02/10/2026 [facility] Comment on above: Expected: 02/10/2025 (Approximate), Expi res: 02/10/2026 Start: 02-10-2025 End: 02-10-2026 CBC W Auto Differential panel - Blood CBC and differential Lab Routine Encounter for long-term (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 medications Expected: 02/10/2025 (Approximate), Expires: 02/10/2026 [facility] Comment on above: Expected: 02/10/2025 (Approximate), Expi res: 02/10/2026 Start: 02-10-2025 End: 02-10-2026 Hemoglobin A1c/Hemoglobin.total in Blood Hemoglobin A1c Lab Routine Type 2 diabetes mellitus with hyperglycemia, with long-term current use of insulin (CMS/HCC) Expected: 02/10/2025 (Approximate), Expires: 02/10/2026 [facility] Comment on above: Expected: 02/10/2025 (Approximate), Expi res: 02/10/2026 Start: 02-10-2025 End: 02-10-2026 Hepatic function 2000 panel - Serum or Plasma Hepatic function panel Lab Routine Encounter for long-term (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 medications Expected: 02/10/2025 (Approximate), Expires: 02/10/2026 [facility] Comment on above: Expected: 02/10/2025 (Approximate), Expi res: 02/10/2026 Start: 02-10-2025 End: 02-10-2026 Lipid 1996 panel - Serum or Plasma Lipid panel Lab Routine Dyslipidemia (CMS/HCC) Expected: 02/10/2025 (Approximate), Expires: 02/10/2026 [facility] Comment on above: Expected: 02/10/2025 (Approximate), Expi res: 02/10/2026 Start: 02-10-2025 End: 02-10-2026 Microalbumin/Creatinine panel in random Urine Microalbumin / creatinine, urine ratio Lab Routine Type 2 diabetes mellitus with hyperglycemia, with long-term current use of insulin ([facility]) Expected: 02/10/2025 (Approximate), Expires: 02/10/2026 [facility] Work Phone: Comment on above: Expected: 02/10/2025 (Approximate), Expi res: 02/10/2026 Start: 02-10-2025 End: 02-10-2026 Thyrotropin [Units/volume] in Serum or Plasma TSH Lab Routine Class 3 severe obesity due to excess calories with serious comorbidity and body mass index (BMI) of 40.0 to 44.9 in adult Expected: 02/10/2025 (Approximate), Expires: 02/10/2026 [facility] Comment on above: Expected: 02/10/2025 (Approximate), Expi res: 02/10/2026 Start: 02-10-2025 End: 02-10-2025 Patient encounter procedure 02/10/2025 1:00 PM EDT Office Visit [facility] [address] [place] [address] Diaz Dalton MD [address] [place] [address] [facility] Start: 02-07-2025 Adult BMI Screening Adult BMI Screening [facility] Start: 02-07-2025 Tobacco Screening Tobacco Screening [facility] Start: 02-03-2025 End: 02-03-2025 Patient encounter procedure 02/03/2025 10:00 AM EDT Appointment [facility] Function [address] [place] [address] Lindsay Arrieta, DO [address] [address] [facility] Start: 02-02-2025 End: 06-13-2025 Pulmonary function test Spirometry (Flow Volume Loop) pre/post short acting bronchodilator w/ DLCO (diffusion study) Pulmonary function test Spirometry (Flow Volume Loop) pre/post short acting bronchodilator w/ DLCO (diffusion study) PFT Routine Moderate persistent asthma without complication Chronic hypoxic respiratory failure ([facility]) Expected: 02/02/2025 (Approximate), Expires: 06/13/2025 [facility] Work Phone: Comment on above: Expected: 02/02/2025 (Approximate), Expi res: 06/13/2025 Start: 01-19-2025 Hemoglobin A1c measurement Diabetes: Hemoglobin A1C [facility] Start: 01-08-2025 End: 01-08-2025 Patient encounter procedure 01/08/2025 1:15 PM EDT Procedure Visit [facility] [address] [place] [phone] Carmen Bowman, DPM [address] [place], [place] [phone] [facility] Start: 01-03-2025 End: 01-03-2025 Patient encounter procedure 01/03/2025 9:15 AM EDT Office Visit [facility] [address] [facility] [address] [place] [address] Katelyn Recio MD [address] [place], [place] [phone] [facility] Start: 12-31-2024 End: 12-31-2024 Patient encounter procedure 12/31/2024 11:30 AM EDT Office Visit [facility] [address] [place] [phone] Smitha Germain MD [address] [facility] [address] [place] [address] [facility] Start: 12-04-2024 End: 12-04-2024 Patient encounter procedure 12/04/2024 1:00 PM EDT Office Visit [facility] [facility] [address] [facility] [phone] Pacheco Madrigal, FINA-LUCIANO [address] [facility], [address] [place] [address] [facility] Start: 11-25-2024 Hemoglobin A1c measurement Diabetes: Hemoglobin A1C [facility] Start: 11-21-2024 Tobacco Screening Tobacco Screening [facility] Start: 11-20-2024 End: 11-20-2024 Clinical Support 11/20/2024 8:00 PM EDT Clinical Support [facility] [address] [place] [address] [facility] [place] [address] Smitha Germain MD [address] [facility] [address] [place] [address] [facility] Start: 11-14-2024 Adult BMI Screening Adult BMI Screening [facility] Start: 11-14-2024 Tobacco Screening Tobacco Screening [facility] Start: 11-09-2024 Adult BMI Screening Adult BMI Screening [facility] Start: 11-09-2024 Tobacco Screening Tobacco Screening [facility] Start: 11-07-2024 End: 11-07-2024 Patient encounter procedure [facility] Comment on above: Arrived Start: 10-28-2024 End: 10-28-2024 Patient encounter procedure 10/28/2024 2:15 PM EST Office Visit [facility] [address] [place] [address] Diaz Dalton MD [address] [place] [phone] Arrived [facility] Comment on above: Arrived Start: 10-28-2024 End: 10-28-2025 Hemoglobin A1c/Hemoglobin.total in Blood Hemoglobin A1c Lab Routine Type 2 diabetes mellitus with hyperglycemia, with long-term current use of insulin ([facility]) Expected: 10/28/2024 (Approximate), Expires: 10/28/2025 [facility] Work Phone: Comment on above: Expected: 10/28/2024 (Approximate), Expi res: 10/28/2025 Start: 10-27-2024 Tobacco Screening Tobacco Screening [facility] Start: 10-18-2024 Adult BMI Screening Adult BMI Screening [facility] Start: 10-09-2024 End: 10-09-2024 Patient encounter procedure 10/09/2024 1:15 PM EST Office Visit [facility] [address] [place] [phone] Carmen Bowman DPM [address] [place], [place] [phone] [facility] Start: 10-07-2024 End: 10-07-2024 Patient encounter procedure 10/07/2024 8:15 AM EST Office Visit [facility] [address] [phone] Katelyn Recio MD [address] [place] [address] [facility] Start: 10-02-2024 Urine screening for protein Diabetes: Urine Protein Screening [facility] Start: 09-25-2024 End: 09-25-2024 Patient encounter procedure 09/25/2024 1:15 PM EST Office Visit [facility] [address] [place] [phone] Carmen Bowman DPM [address] [place], [place] [phone] [facility] Start: 09-12-2024 End: 09-12-2024 Admission to same day surgery center 09/12/2024 11:30 AM EST - 09/12/2024 12:00 PM EST Surgery [facility] [address] [place] [address] Aliya Solorzano, DO [address] [place], [place] [phone] COLONOSCOPY DIAGNOSTIC / SCREENING [88122 (CPT )] [facility] Comment on above: COLONOSCOPY DIAGNOSTIC / SCREENING [4537 8 (CPT )] Start: 09-12-2024 End: 09-12-2024 Anesthesia consultation 09/12/2024 11:30 AM EST Anesthesia Event [facility] [address] [place] [phone] Ector Saini, DO [address] [facility] [place] [address] [facility] Start: 09-12-2024 End: 09-12-2024 Colonoscopy flx dx w/collj spec when pfrmd COLONOSCOPY DIAGNOSTIC / SCREENING Screen for colon cancer 09/12/2024 11:30 AM EST [place] [facility] Start: 09-12-2024 Subsequent hospital visit by physician 09/12/2024 11:30 AM EST Hospital Encounter [facility] [address] [facility] [place] [address] Aliya Solorzano, DO [address] [place], [place] [phone] [facility] Start: 08-15-2024 End: 08-15-2024 Patient encounter procedure 08/15/2024 1:30 PM EST [facility] [address] [place], [place] [id number] Diaz Dalton MD [address] [place] [phone] [facility] Start: 08-14-2024 Hemoglobin A1c measurement Diabetes: Hemoglobin A1C [facility] Start: 08-06-2024 End: 08-06-2024 Patient encounter procedure [facility] Comment on above: Arrived Start: 07-25-2024 End: 07-18-2025 Basic metabolic 2000 panel - Serum or Plasma Basic Metabolic Panel Lab Routine Dyspnea on exertion Pulmonary hypertension ([facility]) Expected: 07/25/2024, Expires: 07/18/2025 [facility] Work Phone: Comment on above: Expected: 07/25/2024, Expires: Start: 07-18-2024 End: 07-18-2024 Patient encounter procedure 07/18/2024 11:30 AM EST Office Visit [facility] [address] [place] [phone] Hair See MD [address] [place] [address] [facility] Start: 07-15-2024 End: 07-15-2024 Patient encounter procedure 07/15/2024 10:15 AM EST Office Visit [facility] [address] [place] [phone] Barry Snowden, [employer] [address] [place] [address] [facility] Start: 07-13-2024 Adult BMI Screening Adult BMI Screening [facility] Start: 07-13-2024 Tobacco Screening Tobacco Screening [facility] Start: 07-04-2024 End: 07-04-2024 Clinical Support 07/04/2024 9:00 AM EDT Clinical Support [facility] [address] [place] [address] [facility] Start: 06-30-2024 Screening for malignant neoplasm of breast Mammogram [facility] Start: 06-26-2024 End: 06-26-2024 Admission to same day surgery center 06/26/2024 8:30 AM EDT - 06/26/2024 9:30 AM EDT Surgery [facility] Cardiac Cath [address] [place] [address] Nicolás Vallejo MD [address] [place] [address] Cardiac Invasive [facility] Comment on above: Cardiac Invasive Start: 06-26-2024 Subsequent hospital visit by physician 06/26/2024 8:30 AM EDT Hospital Encounter [facility] [address] [facility] [place] [address] Nicolás Vallejo MD [address] [place] [address] Pulmonary hypertension ([facility]) [facility] Comment on above: Pulmonary hypertension ([facility]) Start: 06-24-2024 End: 06-24-2024 Patient encounter procedure [facility] Comment on above: Arrived Start: 06-20-2024 End: 06-20-2024 Patient encounter procedure 06/20/2024 8:00 AM EDT Office Visit [facility] [address] [place] [address] Nicolás Vallejo MD [address] [place] [address] Katelyn Recio MD [address] [place] [address] [facility] Start: 06-17-2024 End: 06-17-2024 Patient encounter procedure 06/17/2024 9:00 AM EDT Procedure Visit [facility] Arianna Miller, [address] [place] [address] [facility] Start: 06-13-2024 End: 06-13-2024 Patient encounter procedure 06/13/2024 1:00 PM EDT Office Visit [facility] [address] [place] [phone] Lindsay Arrieta, DO [address] [address] [facility] Start: 06-05-2024 Depression Screening Depression Screening [facility] Start: 05-30-2024 End: 05-30-2024 Patient encounter procedure [facility] Comment on above: Arrived Start: 05-29-2024 End: 05-29-2024 Patient encounter procedure 05/29/2024 9:45 AM EDT Office Visit [facility] [address] [place] [phone] Diaz Dalton MD [address] [place] [address] Arrived [facility] Comment on above: Arrived Start: 05-28-2024 End: 05-28-2024 Patient encounter procedure 05/28/2024 11:30 AM EDT Office Visit [facility] [address] [facility] [address] [place] [phone] Nicolás Vallejo MD [address] [place] [address] [facility] Start: 05-16-2024 End: 05-16-2024 Patient encounter procedure 05/16/2024 9:45 AM EDT Office Visit [facility] [place] [phone] Lindsay Arrieta, DO [address] [address] [facility] Start: 05-15-2024 Hemoglobin A1c measurement Diabetes: Hemoglobin A1C [facility] Start: 05-14-2024 End: 05-14-2024 Patient encounter procedure 05/14/2024 8:30 AM EDT Appointment [facility] Cardiovascular [address] [place] [address] [facility] Start: 05-13-2024 End: 05-13-2025 Hemoglobin A1c/Hemoglobin.total in Blood Hemoglobin A1c Lab Routine Type 2 diabetes mellitus with hyperglycemia, with long-term current use of insulin ([facility]) Expected: 05/13/2024 (Approximate), Expires: 05/13/2025 [facility] Work Phone: Comment on above: Expected: 05/13/2024 (Approximate), Expi res: 05/13/2025 Start: 05-13-2024 End: 05-13-2024 Patient encounter procedure [facility] Comment on above: Arrived Start: 05-05-2024 COVID-19 Vaccine ( season) COVID-19 Vaccine ( season) [facility] Start: 05-05-2024 COVID-19 Vaccine ( season) COVID-19 Vaccine ( season) [facility] Start: 05-05-2024 Influenza vaccination [facility] Start: 04-24-2024 End: 04-24-2024 Patient encounter procedure 04/24/2024 1:50 PM EDT Office Visit [facility] [address] [place] [address] Feliz Benz DO [address] [facility] [address] [place] [address] Arrived [facility] Comment on above: Arrived Start: 04-23-2024 End: 02-07-2025 CT Chest limited W contrast IV CT chest with contrast Imaging Routine Mediastinal lymphadenopathy Expected: 04/23/2024, Expires: 02/07/2025 [facility] Work Phone: Comment on above: Expected: 04/23/2024, Expires: Start: 04-23-2024 End: 04-23-2024 Patient encounter procedure 04/23/2024 8:30 AM EDT Appointment [facility] [address] [place] [address] Lindsay Arrieta, DO [address] [place] [address] [facility] Start: 04-09-2024 End: 04-09-2024 Patient encounter procedure 04/09/2024 11:00 AM EDT Office Visit [facility] [address] [place] [address] Smitha Germain MD [address] [address] [facility] Start: 03-18-2024 End: 03-18-2024 Telemedicine consultation with patient 03/18/2024 3:00 PM EDT Telemedicine [facility] [address] [place] [phone] Lindsay Arrieta, DO [address] [place] [address] [facility] Start: 03-12-2024 End: 03-12-2024 Telemedicine consultation with patient 03/12/2024 2:00 PM EDT Telemedicine [facility] [address] [place] [phone] Lidnsay Arrieta, DO [address] [place] [address] [facility] Start: 02-19-2024 End: 02-18-2025 Echo complete W/O contrast Echo complete W/O contrast Echocardiography Routine Dyspnea on exertion Chronic hypoxic respiratory failure ([facility]-HCC) Expected: 02/19/2024, Expires: 02/18/2025 [facility] Work Phone: Comment on above: Expected: 02/19/2024, Expires: Start: 02-19-2024 End: 02-18-2025 XR Chest PA and Lateral X-ray chest 2 views Imaging Routine Dyspnea on exertion Expected: 02/19/2024, Expires: 02/18/2025 [facility] Comment on above: Expected: 02/19/2024, Expires: Start: 02-15-2024 End: 02-15-2024 ambulatory 02/15/2024 2:00 PM EDT Infant Monitor [facility] Monitor [address] [address] [facility] Start: 02-13-2024 End: 02-13-2024 Patient encounter procedure 02/13/2024 8:00 AM EDT Appointment [facility] - Pulmonary Function [address] [place] [place] [phone] Lindsay Arrieta, DO [address] [address] [facility] - Pulmonary Function Start: 02-08-2024 End: 02-08-2024 Patient encounter procedure 02/08/2024 9:00 AM EDT Office Visit [facility] [address] [place] [phone] Lindsay Arrieta, DO [address] [address] [facility] Start: 11-22-2023 End: 11-22-2023 Admission to same day surgery center 11/22/2023 1:30 PM EDT - 11/22/2023 3:15 PM EDT Surgery [facility] End[facility] [address] [facility] [place] [phone] Libby Finley MD [address] [facility] [place] [address] ENDOBRONCHIAL ULTRASOUND BRONCHOSCOPY [facility] Comment on above: ENDOBRONCHIAL ULTRASOUND BRONCHOSCOPY Start: 11-22-2023 End: 11-22-2023 ENDOBRONCHIAL ULTRASOUND BRONCHOSCOPY ENDOBRONCHIAL ULTRASOUND BRONCHOSCOPY LYMPH ADENOPATHY 11/22/2023 1:[address] [facility] Start: 11-22-2023 Subsequent hospital visit by physician 11/22/2023 1:30 PM EDT Hospital Encounter [facility] [address] [facility] [place] [address] Libby Finley MD [address] [facility] [place] [address] [facility] Start: 11-15-2023 End: 11-15-2023 Admission to establishment 11/15/2023 10:30 AM EDT Support Visit [facility] Pre-Admission Clinic On [address] [address] [facility] Pre-Admission [facility] On [facility] Start: 11-02-2023 End: 11-02-2023 Patient encounter procedure 11/02/2023 1:30 PM EST Office Visit [facility] [address] [place] [phone] Barry Snowden, [place] [address] [place], [place] [phone] [facility] Start: 10-26-2023 End: 10-26-2023 Patient encounter procedure 10/26/2023 10:00 AM EST Appointment [facility] - Ultrasound [address] [place] [address] [facility] - Ultrasound Start: 10-17-2023 End: 10-17-2023 Patient encounter procedure 10/17/2023 1:30 PM EST Office Visit [facility] [address] [place] [address] Diaz Dalton MD [address] [place] [address] [facility] Start: 10-11-2023 End: 10-11-2024 Estrogens, total Estrogens, total Lab Routine Amenorrhea Expected: 10/11/2023 (Approximate), Expires: 10/11/2024 [facility] Comment on above: Expected: 10/11/2023 (Approximate), Expi res: 10/11/2024 Start: 10-11-2023 End: 10-11-2024 US for US PELVIS-TRANSVAG IF INDICATED Imaging Routine Amenorrhea Expected: 10/11/2023 (Approximate), Expires: 10/11/2024 [facility] Comment on above: Expected: 10/11/2023 (Approximate), Expi res: 10/11/2024 Start: 10-10-2023 End: 10-10-2023 Patient encounter procedure 10/10/2023 8:00 AM EST Office Visit [facility] [address] [place] [phone] Feliz Benz, [address] [facility] [address] [place] [address] Amenorrhea [facility] Comment on above: Amenorrhea Start: 06-07-2023 Urine screening for protein Urine Microalbumin [facility] Start: 06-03-2023 Hemoglobin A1c measurement Diabetes: Hemoglobin A1C [facility] Start: 05-05-2023 COVID-19 Vaccine ( season) COVID-19 Vaccine ( season) [facility] Start: 05-05-2023 Influenza vaccination [facility] Start: 12-29-2021 Hemoglobin A1c measurement A1C test (Diabetic or Prediabetic) [facility] Start: 11-29-2021 COVID-19 Vaccine (3 - Booster for Pfizer series) COVID-19 Vaccine (3 - Booster for Pfizer series) [facility] Start: 05-05-2021 Influenza vaccination Flu vaccine (#1) [facility] Start: 2009 Screening for malignant neoplasm of cervix [facility] Start: 2000 Screening for malignant neoplasm of cervix Pap smear [facility] Start: 1998 Hepatitis B vaccine (1 of 3 - Risk 3-dose series) Hepatitis B vaccine (1 of 3 - Risk 3-dose series) [facility] Start: 1997 Adult BMI Follow Up Plan Adult BMI Follow Up Plan [facility] Start: 1997 Diabetic foot examination Diabetic Foot Exam [facility] Start: 1997 Diabetic retinal exam Diabetic retinal exam [facility] Start: 1997 Urine screening for protein Diabetic microalbuminuria test [facility] Start: 1994 HIV screening HIV screen [facility] Start: 1991 Depression Screen Depression Screen [facility] Start: 1989 Diabetic foot examination Diabetic foot exam [facility] Start: 1989 Glaucoma screening Diabetes: Retinopathy Screening [facility] Start: 1989 Lipid panel Lipid screen [facility] Start: 1985 Pneumococcal 0-64 years Vaccine (1 of 2 - PPSV23) Pneumococcal 0-64 years Vaccine (1 of 2 - PPSV23) [facility] Start: 1979 Glaucoma screening Diabetic Ophthalmology Exam [facility] Start: 1979 Hepatitis C screening Hepatitis C screen [facility] Start: 1979 Screening for malignant neoplasm of colon [facility] Basic metabolic 2000 panel - Serum or Plasma Basic Metabolic Panel Lab Routine Lab max of 3 days, Daily, for lab use only until discontinued starting 12/21/2023, 3 completed [employer] [facility] Comment on above: Lab max of 3 days, Daily, for lab use on ly until discontinued starting 12/21/2023, 3 completed Bedside Glucose *Place/Obtain serum glucose if >500(>600 MRH) per glucometer. Bedside Glucose *Place/Obtain serum glucose if >500(>600 MRH) per glucometer. Point of Care Testing Routine 4X Daily (AC and at bedtime) until discontinued starting 12/21/2023, 10 completed [facility] Comment on above: 4X Daily (AC and at bedtime) until disco ntinued starting 12/21/2023, 10 completed CBC panel - Blood by Automated count CBC without diff Lab Routine Lab max of 3 days, Daily, for lab use only until discontinued starting 12/21/2023, 3 completed [facility] Comment on above: Lab max of 3 days, Daily, for lab use on ly until discontinued starting 12/21/2023, 3 completed CBC W Auto Different ial panel - Blood CBC auto differential Lab Routine Daily until discontinued starting 09/29/2021, 4 completed [facility] Work Phone: Comment on above: Daily until discontinued starting 2021, 4 completed End: 11-09-2024 Coccidiomyces Coccidiomyces Lab Routine Mediastinal lymphadenopathy Pulmonary nodule 1 Occurrences starting 11/10/2023 until 11/09/2024 [facility] Comment on above: 1 Occurrences starting 11/10/2023 until 11/09/2024 End: 02-07-2025 Creatinine includes GFR, serum Creatinine includes GFR, serum Lab Routine Mediastinal lymphadenopathy 1 Occurrences starting 02/08/2024 until 02/07/2025 [facility] Comment on above: 1 Occurrences starting 02/08/2024 until 02/07/2025 Culture, Anaerobic a nd Aerobic Culture, Anaerobic and Aerobic Microbiology [employer] Label Print 09/30/2021 9:50 AM EST [facility] Work Phone: Follicle stimulating hormone Follicle stimulating hormone Lab Routine Amenorrhea Ordered: 10/11/2023 [employer] Work Phone: Comment on above: Ordered: 10/11/2023 End: 11-09-2024 Fungitell Assay for (1,3)-B-D-Glucan Fungitell Assay for (1,3)-B-D-Glucan Lab Routine Mediastinal lymphadenopathy Pulmonary nodule 1 Occurrences starting 11/10/2023 until 11/09/2024 Abigail [employer] Work Phone: Comment on above: 1 Occurrences starting 11/10/2023 until 11/09/2024 Glucose [Mass/volume ] in Serum or Plasma POCT glucose Point of Care Testing Routine 4X Daily (AC & HS) until discontinued starting 09/29/2021 [facility] Phone: Comment on above: 4X Daily (AC & HS) until discontinued st arting 09/29/2021 End: 11-09-2024 Histoplasma antigen, serum Histoplasma antigen, serum Lab Routine Mediastinal lymphadenopathy Pulmonary nodule 1 Occurrences starting 11/10/2023 until 11/09/2024 [employer] Comment on above: 1 Occurrences starting 11/10/2023 until 11/09/2024 End: 11-09-2024 Histoplasma antigen, urine Histoplasma antigen, urine Microbiology Routine Mediastinal lymphadenopathy Pulmonary nodule 1 Occurrences starting 11/10/2023 until 11/09/2024 [facility] Comment on above: 1 Occurrences starting 11/10/2023 until 11/09/2024 End: 02-07-2025 Home O2 eval (desaturation screen) Home O2 eval (desaturation screen) Respiratory Care Routine Hypoxia Dyspnea on exertion 1 Occurrences starting 02/08/2024 until 02/07/2025 [employer] Comment on above: 1 Occurrences starting 02/08/2024 until 02/07/2025 End: 11-09-2024 Hyperssens pneu IGG Hyperssens pneu IGG Lab Routine Mediastinal lymphadenopathy Pulmonary nodule 1 Occurrences starting 11/10/2023 until 11/09/2024 [employer] Comment on above: 1 Occurrences starting 11/10/2023 until 11/09/2024 End: 10-01-2021 Initiate RT Protocol Initiate RT Protocol Respiratory Care Routine Continuous until discontinued starting 10/01/2021 [employer] Phone: Comment on above: Continuous until discontinued starting 0 10/01/2021 LH LH Lab Routine Amenorrhea Ordered: 10/11/2023 [facility] Comment on above: Ordered: 10/11/2023 Magnesium [Mass/volu me] in Serum or Plasma Magnesium Lab Routine Lab max of 3 days, Daily, for lab use only until discontinued starting 12/21/2023, 3 completed [employer] Comment on above: Lab max of 3 days, Daily, for lab use on ly until discontinued starting 12/21/2023, 3 completed Oxygen Therapy - Maintain SpO2: 90%; *DRYWALLER Guidelines for O2: Yes; Document: \[employer]\ep ic\EPIC_Reference\Order s\Respiratory Care Guidelines\CPG Oxygen 2020.pdf Oxygen Therapy - Maintain SpO2: 90%; *DRYWALLER Guidelines for O2: Yes; Document: \[employer]\epi c\EPIC_Reference\Orders\ Respiratory Care Guidelines\CPG Oxygen 2020.pdf Respiratory Care Routine As Needed until discontinued starting 12/20/2023 [employer] Phone: Comment on above: As Needed until discontinued starting Oxygen therapy [[facility] Data Set] Initiate Oxygen Therapy Protocol Respiratory Care Routine Daily until discontinued starting 09/28/2021 [facility] Phone: Comment on above: Daily until discontinued starting 2021 End: 10-01-2021 PERIPHERAL BLOOD SMEAR, PATH REVIEW [facility] Phone: Comment on above: One Time for 1 Occurrences starting 09/05 until 10/01/2021 Phosphate [Mass/volu me] in Serum or Plasma Phosphorus Lab STAT Tomorrow AM until discontinued starting 10/01/2021, 3 completed [employer] Phone: Comment on above: Tomorrow AM until discontinued starting 10/01/2021, 3 completed End: 04-09-2025 Polysomnography 4 or more parameters with PAP titration Polysomnography 4 or more parameters with PAP titration Sleep Center Routine JOSE M (obstructive sleep apnea) Chronic hypoxic respiratory failure ([facility]) Severe obesity (BMI >= 40) ([facility]) 1 Occurrences starting 04/09/2024 until 04/09/2025 [facility] Comment on above: 1 Occurrences starting 04/09/2024 until 04/09/2025 End: 09-29-2021 PREVIOUS SPECIMEN [facility] Phone: Comment on above: Once for 1 Occurrences starting 09/29/19 until 09/29/2021 End: 09-30-2021 PREVIOUS SPECIMEN [employer] Phone: Comment on above: Once for 1 Occurrences starting 09/30/19 until 09/30/2021 Progesterone Progesterone Lab Routine Amenorrhea Ordered: 10/11/2023 [facility] Comment on above: Ordered: 10/11/2023 End: 04-09-2025 PSG Diagnostic [facility] Diagnostic [facility] Routine JOSE M (obstructive sleep apnea) Chronic hypoxic respiratory failure ([facility]) Severe obesity (BMI >= 40) ([facility]) 1 Occurrences starting 04/09/2024 until 04/09/2025 [facility] Work Phone: Comment on above: 1 Occurrences starting 04/09/2024 until 04/09/2025 Respiratory care evaluation only Respiratory care evaluation only Respiratory Care Routine As Needed until discontinued starting 10/01/2021 [facility] Work Phone: Comment on above: As Needed until discontinued starting THIN PREP TIS PAP AN D HR HPV DNA THIN PREP TIS PAP AND HR HPV DNA Pathology and Cytology Routine Well woman exam with routine gynecological exam Ordered: 08/06/2024 [facility] [email or web address] Work Phone: Comment on above: Ordered: 08/06/2024 End: 09-28-2021 Wound ostomy eval and treat Wound ostomy eval and treat Wound Ostomy Routine One Time for 1 Occurrences starting 09/28/2021 until 09/28/2021 [employer] Work Phone: Comment on above: One Time for 1 Occurrences starting 09/05 until 09/28/2021 Immunizations Immunization Date Immunization Notes Care Provider Fa [facility] 12-18-2023 Pneumococcal Conjuga te PCV 20 Diaz Dalton MD Work Phone: [facility] 04-09-2021 tetanus toxoid, redu ajay diphtheria toxoid, and acellular pertussis vaccine, adsorbed Barry Snowden [employer] Work Phone: [facility] 06-15-2020 influenza, injectabl e, quadrivalent, preservative free Barry Snowden [employer] Work Phone: [facility] 06-15-2020 influenza virus vacc ine, unspecified formulation Barry Snowden [employer] Work Phone: [facility] 05-20-2019 influenza, injectabl e, quadrivalent, preservative free Diaz Dalton MD Work Phone: [facility] 04-22-2017 influenza, injectabl e, quadrivalent, preservative free Diaz Dalton MD Work Phone: [facility] 05-13-2016 influenza, injectabl e, quadrivalent, preservative free Diaz Dalton MD Work Phone: [facility] 05-28-2015 influenza, injectabl e, quadrivalent, preservative free Diaz Dalton MD Work Phone: [facility] 10-06-2009 tetanus toxoid, adsorbed Nicky lynn Sha WRENER Work Phone: [facility] Payers Date Payer Category Payer Medicaid [id number] 1979 Unknown [id number] 2.16.8 40.1.905875.3.579.2.175 1979 Unknown [id number] 2.16.84 0.1.038340.3.579.2.593 1979 Unknown [id number] 2.16.84 0.1.274535.3.579.2.593 1979 Unknown [id number] 2.16.84 0.1.208946.3.579.2.593 1979 Unknown [id number] 2.16.84 0.1.921933.3.579.2.593 1979 Unknown [id number] 2.16.84 0.1.516294.3.579.2.593 1979 Unknown [id number] 2.16.84 0.1.608290.3.579.2.593 1979 Unknown [id number] 2.16.84 0.1.751980.3.579.2.593 1979 Unknown [id number] 2.16.8 40.1.008007.3.579.2.1286 1979 Unknown [id number] 2.16.8 40.1.037020.3.579.2.6 1979 Unknown [id number] 2.16.8 40.1.540068.3.579.2.1285 1979 Unknown [id number] 2.16.8 40.1.875048.3.579.2.1285 1979 Unknown [id number] 2.16.8 40.1.647994.3.579.2.1285 1979 Unknown [id number] 2.16.8 40.1.990529.3.579.2.1285 1979 Unknown [id number] 2.16.8 40.1.304812.3.579.2.1285 1979 Unknown [id number] 2.16.8 40.1.905784.3.579.2.1285 1979 Unknown [id number] 2.16.8 40.1.735565.3.579.2.1285 1979 Unknown [id number] 2.16.8 40.1.187186.3.579.2.1285 1979 Unknown [id number] 2.16.8 40.1.772674.3.579.2. 1979 Unknown [id number] 2.16.8 40.1.709150.3.579.2. 1979 Unknown [id number] 2.16.8 40.1.789331.3.579.2. 1979 Unknown [id number] 2.16.8 40.1.946396.3.579.2. 1979 Unknown [id number] 2.16.8 40.1.926116.3.579.2. 1979 Unknown [id number] 2.16. 840.1.592438.3.579.2.1285 1979 Unknown [id number] 2.16. 840.1.181800.3.579.2.1285 1979 Unknown [id number] 2.16. 840.1.648409.3.579.2.1285 1979 Unknown [id number] 2.16. 840.1.063247.3.579.2.1285 1979 Unknown [id number] 2.16. 840.1.908478.3.579.2.1285 1979 Unknown [id number] 2.16. 840.1.875556.3.579.2.1285 1979 Unknown [id number] 2.16. 840.1.938015.3.579.2.1285 1979 Unknown [id number] 2.16.8 40.1.301186.3.579.2.1285 1979 Unknown [id number] 2.16.8 40.1.517216.3.579.2.1285 1979 Unknown [id number] 2.16.8 40.1.307628.3.579.2.1285 1979 Unknown [id number] 2.16.8 40.1.929431.3.579.2.1285 1979 Unknown [id number] 2.16.8 40.1.092081.3.579.2.1285 1979 Unknown [id number] 2.16.8 40.1.636546.3.579.2.1285 1979 Unknown [id number] 2.16.8 40.1.724361.3.579.2.1285 1979 Unknown [id number] 2.16.8 40.1.861155.3.579.2.1285 1979 Unknown [id number] 2.16.8 40.1.474007.3.579.2.1285 1979 Unknown [id number] 2.16.8 40.1.335405.3.579.2.1285 1979 Unknown [id number] 2.16.8 40.1.974626.3.579.2.1285 1979 Unknown [id number] 2.16.8 40.1.213269.3.579.2.1285 1979 Unknown [id number] 2.16.8 40.1.407811.3.579.2.1285 1979 Unknown [id number] 2.16.8 40.1.451457.3.579.2.1285 1979 Unknown [id number] 2.16.8 40.1.354571.3.579.2.1285 1979 Unknown [id number] 2.16.8 40.1.081977.3.579.2.1285 1979 Unknown [id number] 2.16. 840.1.255122.3.579.2.1285 1979 Unknown [id number] 2.16. 840.1.925673.3.579.2.1285 1979 Unknown [id number] 2.16.8 40.1.701018.3.579.2.1285 1979 Unknown [id number] 2.16.8 40.1.021591.3.579.2.1285 1979 Unknown [id number] 2.16.8 40.1.329624.3.579.2.1285 1979 Unknown [id number] 2.16.8 40.1.953966.3.579.2.1258 1979 Unknown [id number] 2.16.8 40.1.715889.3.579.2.1258 1979 Unknown [id number] 2.16.8 40.1.981169.3.579.2.1258 1979 Unknown [id number] 2.16.8 40.1.249529.3.579.2.1258 1979 Unknown [id number] 2.16.8 40.1.368592.3.579.2.1258 1979 Unknown [id number] 2.16.8 40.1.728866.3.579.2.1258 1979 Unknown [id number] 2.16.8 40.1.418522.3.579.2.1258 1979 Unknown [id number] 2.16.8 40.1.240427.3.579.2.1258 1979 Unknown [id number] 2.16.8 40.1.564348.3.579.2.1258 1979 Unknown [id number] 2.16.8 40.1.490471.3.579.2.1258 1979 Unknown [id number] 2.16.8 40.1.150257.3.579.2.1258 1979 Unknown [id number] 2.16.84 0.1.931153.3.579.2.1258 1979 Unknown [id number] 2.16.84 0.1.213319.3.579.2.1258 1979 Unknown [id number] 2.16.84 0.1.274841.3.579.2.1258 1979 Unknown [id number] 2.16.84 0.1.720501.3.579.2.1258 1979 Unknown [id number] 2.16.84 0.1.718417.3.579.2.1258 1979 Unknown [id number] 2.16.84 0.1.200062.3.579.2.1258 1979 Unknown [id number] 2.16.84 0.1.747173.3.579.2.1258 1979 Unknown [id number] 2.16.84 0.1.920747.3.579.2.1258 1979 Unknown [id number] 2.16.84 0.1.288948.3.579.2.1258 1979 Unknown [id number] 2.16.84 0.1.484836.3.579.2.1258 1979 Unknown [id number] 2.16.84 0.1.645695.3.579.2.1259 1960 Medicaid [id number] 1. [id number]855.315 Social History Date Type Detail Facility Start: 09-29-2021 End: 08-10-2023 Tobacco smoking status NHIS Never smoked tobacco [facility]: Start: 09-29-2021 End: 08-10-2023 Tobacco use and exposure Smokeless tobacco non-user [facility]: Start: 09-29-2021 End: 04-22-2025 Alcohol intake Lifetime non-drinker (finding) [facility]: Start: 1980 Sex Assigned At Not on file [facility]: Start: 10-05-2023 End: 04-22-2025 [facility] Start: 10-05-2023 End: 04-22-2025 Tobacco use panel [facility] Start: 03-01-2023 Alcohol Comment Caffeine: 1-2 cups/day , [place] occasionally [facility] Start: 06-27-2024 End: 08-06-2024 Alcoholic beverage intake Current drinker of alcohol (finding) [facility] Has the [employer], [employer], or Clone threatened to shut off services in your home in past 12Mo Yes [facility] Do you belong to any clubs or organizations such as tenriism groups, unions, fraternal or athletic groups, or school groups? No [facility] Are you now , , , , never or living with a partner? [facility] How often to you hav e a drink containing alcohol? Never [facility] How many standard dr inks containing alcohol do you have on a typical day? Patient does not drink [facility] Do you feel stress - tense, restless, nervous, or anxious, or unable to sleep at night because your mind is troubled all the time - these days [OSQ] Only a little [facility] Start: 03-01-2019 Alcohol Comment occasionally-once a month [facility] Start: 04-09-2015 Sex Female (finding) [facility] Start: 09-05-2024 End: 01-03-2025 Alcoholic beverage intake Ex-drinker (finding) [facility] Medical Equipment Procedure Code Equipment Code Equipment Origin al Text Equipment Identifier Dates USE ONE PEN NEED LE TO INJECT MEDICATION SIX TIMES A DAY [id number] Start: 06-22-2023 USE ONE PEN NEED LE TO INJECT MEDICATION SIX TIMES A DAY [id number] Start: 01-18-2024 Use as instructed [id number] Start: 01-08-2025 Goals Date Patient Goal Desired [...] (CELEXA) 40 mg, Oral, Daily Continuous Glucose Long Term Care Administrator (FreeStyle Crystal 3 [place]) device 1 Application, Does not apply, Continuous Continuous Glucose Sensor (FreeStyle Crystal 3 Sensor) [facility] USE TO MONITOR BLOOD SUGAR DIRECTED. CHANGE SENSOR EVERY 14 DAYS. Continuous Glucose Sensor (FreeStyle Crystal 3 Sensor) [facility] 1 Units, Does not apply, Weekly cyclobenzaprine [...] UNITS DAILY* insulin pen needle (Droplet Pen [place]) 32G x 4 mm [facility] Use as instructed lamoTRIgine (LAMICTAL) 200 mg, [...] heart failure with preserved ejection fraction (HFpEF) ([facility]) 04/06/2023 Equinus deformity of left foot 04/06/2023 Gastroesophageal reflux disease 04/06/2023 Genital warts 04/06/2023 Hot flashes due to menopause 04/06/2023 Type 2 diabetes mellitus with microalbuminuria, with long-term current use of insulin ([facility]) 04/06/2023 Internal derangement of left shoulder 04/06/2023 Irritable bowel syndrome with diarrhea 04/06/2023 Mild developmental delay 09/29/2021 Migraine without aura and without status migrainosus, not intractable 04/06/2023 Mild episode of recurrent major depressive disorder 04/06/2023 Class 3 severe obesity due to excess calories with serious comorbidity and body mass index (BMI) of 40.0 to 44.9 in adult ([facility]) 11/21/2022 Type 2 diabetes mellitus with polyneuropathy ([facility]) 06/10/2021 Obstructive sleep apnea syndrome 09/30/2009 Osteoarthritis of knee 04/06/2023 Overactive bladder 04/06/2023 Panic disorder without agoraphobia 11/12/2009 Dyslipidemia 04/22/2010 Spondylosis without myelopathy 08/10/2010 Obesity hypoventilation syndrome ([facility]) 01/04/2024 Benign essential hypertension 01/04/2024 Right carpal tunnel syndrome 01/04/2024 Type 2 diabetes mellitus with hyperglycemia, with long-term current use of insulin ([facility]) 02/12/2024 Moderate persistent asthma without complication ([facility]) 02/19/2024 Pulmonary hypertension ([facility]) 08/06/2024 Dehydration 10/28/2024 Nausea & vomiting 10/28/2024 Encounter for long-term (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 medications 02/10/2025 Resolved Ambulatory Problems Diagnosis Date Noted Acute kidney injury (DREW) with acute tubular necrosis (ATN) 09/30/2021 Acute pain of left shoulder 04/06/2023 Shoulder joint pain 04/06/2021 Carpal tunnel syndrome of left wrist 04/06/2023 Convulsions in the ([facility]) 09/30/2009 Cubital tunnel syndrome on left 11/04/2022 Fecal incontinence 06/22/2016 High anion gap metabolic acidosis 09/30/2021 Hyperglycemia 03/01/2019 Mild intellectual disability 09/30/2009 Other chronic pain 04/06/2023 Pneumonia due to infectious organism 09/29/2021 Poorly controlled diabetes mellitus ([facility]) 08/10/2015 Normal gynecologic examination 06/09/2015 Missed period 04/06/2023 DKA, type 1, not at goal ([facility]) 09/27/2021 Type 2 diabetes mellitus ([facility]) 09/30/2009 Cavitary lesion of lung 08/10/2023 Other chest pain 08/10/2023 Hypoxia 01/04/2024 Chronic hypoxic respiratory failure ([facility]) 02/19/2024 Acute pain of right knee 05/29/2024 Past Medical History: Diagnosis Date Ankle fracture Anxiety and depression At low risk for fall Bilateral leg edema Chest pain, central Chronic left shoulder pain Chronic pain Chronic respiratory failure ([facility]) Epilepsy ([facility]) GERD (gastroesophageal reflux disease) History of being hospitalized History of medical problems Hyperlipidemia Insomnia, persistent MDD (major depressive disorder), recurrent episode, mild Morbid obesity with BMI of 40.0-44.9, adult ([facility]) Nocturnal hypoxemia Nonsmoker OAB (overactive bladder) Obesity JOSE M (obstructive sleep apnea) Postoperative urinary retention Primary osteoarthritis of left knee Seasonal allergies Type 2 diabetes mellitus with diabetic polyneuropathy, with long-term current use of insulin ([facility]) Type 2 diabetes mellitus without complication ([facility]) Vitamin D deficiency HISTORY PAST MEDICAL HISTORY SOCIAL HISTORY Past Medical History: Diagnosis Date Ankle fracture Anxiety and depression At low risk for fall Bilateral leg edema Chest pain, central Chronic left shoulder pain Chronic pain Chronic respiratory failure ([facility]) Dyslipidemia Epilepsy ([facility]) Childhood epilepsy JOHN (generalized anxiety disorder) Genital warts GERD (gastroesophageal reflux disease) History of being hospitalized pneumonia, diabetes, infection [10/29/21-11/05/21] History of medical problems mild mental retardation Hyperlipidemia Insomnia, persistent Irritable bowel syndrome with diarrhea MDD (major depressive disorder), recurrent episode, mild Migraine without aura and without status migrainosus, not intractable Morbid obesity with BMI of 40.0-44.9, adult ([facility]) Nocturnal hypoxemia Nonsmoker OAB (overactive bladder) Obesity JOSE M (obstructive sleep apnea) Postoperative urinary retention Primary osteoarthritis of left knee Seasonal allergies Type 2 diabetes mellitus with diabetic polyneuropathy, with long-term current use of insulin ([facility]) Type 2 diabetes mellitus with hyperglycemia, with long-term current use of insulin ([facility]) Type 2 diabetes mellitus without complication ([facility]) Vitamin D deficiency Social History [...] 12/29/2017 Diagnostic laparoscopy LAPAROTOMY OVARIAN CYSTECTOMY 03/31/2023 [place] ARTHROCENTESIS ASPIR&/INJ MAJOR JT/BURSA W/O US Right [...] nursing note reviewed. Exam conducted with a drupal architect present. Vitals: Estimated body mass index is [...] genital warts. Patient to setup date with [facility] prior to leaving office today. Documented by Romana Poole NP on behalf of: Feliz Benz DO documented in this encounter [facility] 04-07-2025 Telephone encounter Note She called and lm noting not feeling well this morning; she cx her PT for today. [facility] 04-07-2025 Miscellaneous Notes She called and lm noting not feeling well this morning; she cx her PT for today. documented in this encounter [facility] 03-28-2025 Telephone encounter Note Called and spoke to Carissa, let her know Dr Jackson's recommendation. She will continue physical therapy. She will let the therapist know she has been having a lot of pain and see if there is anything different they can try. Recommended taking TYL/IBU before therapy and to continue icing/elevating. Will call back with any more issues. [facility] 03-28-2025 Miscellaneous Notes Called and spoke to [...] stating she has physical therapy today in [place]. This would be the third session. She fels she cannot do it. She is in a lot of pain after. [phone] Renetta & [address]. Jackson, It sounds like [...] April 22, 2025. documented in this encounter [facility] 03-28-[address] Jackson said that if that knee does need surgery, he is unable to do surgery until that knee is moving. He strongly advises that she goes to physical therapy. [facility] 03-28-2025 Telephone encounter Note She called noting she has a call into Dr. Jackson, due to when she has completed PT so far, she feels 2x's worse than when she started. Pending call back, she said she'll keep her next PT scheduled 04/02; will contact if cx is needed. [facility] 03-28-2025 Miscellaneous Notes She called noting she has a call into Dr. Jackson, due to when she has completed PT so far, she feels 2x's worse than when she started. Pending call back, she said she'll keep her next PT scheduled 04/02; will contact if cx is needed. documented in this encounter [facility] 03-28-2025 Telephone encounter Note Patient called stating she has physical therapy today in [place]. This would be the third session. She fels she cannot do it. She is in a lot of pain after. [phone] [facility] 03-27-2025 Telephone encounter Note Renetta & Dr. Jackson, It sounds like this pt is not tolerating recommend therapy for her knee, Possible scope? Any recommendations.? [facility] [email or web address] Work Phone: 03-27-2025 Telephone encounter Note Carissa called and said that she went to therapy twice and said that the pain is so bad afterwards she can't stand it, she is scheduled for tomorrow doesn't want to go because of the pain. She said that its still popping please advise She is scheduled with Dr. Jackson April 22, 2025. [facility] 03-24-2025 Miscellaneous Notes Patient called office requesting a refill of her Trelegy 200 to be sent to [facility], content writer asked patient to confirm the phone number for [facility] as two [facility] are listed in her chart patient confirmed phone number for the pharmacy located in [place]. documented in this encounter [facility] 03-24-2025 Telephone encounter Note Patient called office requesting a refill of her Trelegy 200 to be sent to [facility], content writer asked patient to confirm the phone number for [facility] as two [facility] are listed in her chart patient confirmed phone number for the pharmacy located in [place]. [facility] 03-17-2025 History of Present illness Narrative Reason [...] (CELEXA) 40 mg, Oral, Daily Continuous Glucose Long Term Care Administrator (FreeStyle Crystal 3 [place]) device 1 Application, Does not apply, Continuous Continuous Glucose Sensor (FreeStyle Crystal 3 Sensor) [facility] USE TO MONITOR BLOOD SUGAR DIRECTED. CHANGE [...] UNITS DAILY* insulin pen needle (Droplet Pen [place]) 32G x 4 mm [facility] Use as instructed lamoTRIgine (LAMICTAL) 200 mg, [...] heart failure with preserved ejection fraction (HFpEF) ([facility]) 04/06/2023 Equinus deformity of left foot 04/06/2023 Gastroesophageal reflux disease 04/06/2023 Genital warts 04/06/2023 Hot flashes due to menopause 04/06/2023 Type 2 diabetes mellitus with microalbuminuria, with long-term current use of insulin ([facility]) 04/06/2023 Internal derangement of left shoulder 04/06/2023 Irritable bowel syndrome with diarrhea 04/06/2023 Mild developmental delay 09/29/2021 Migraine without aura and without status migrainosus, not intractable 04/06/2023 Mild episode of recurrent major depressive disorder 04/06/2023 Class 3 severe obesity due to excess calories with serious comorbidity and body mass index (BMI) of 40.0 to 44.9 in adult ([facility]) 11/21/2022 Type 2 diabetes mellitus with polyneuropathy ([facility]) 06/10/2021 Obstructive sleep apnea syndrome 09/30/2009 Osteoarthritis of knee 04/06/2023 Overactive bladder 04/06/2023 Panic disorder without agoraphobia 11/12/2009 Dyslipidemia 04/22/2010 Spondylosis without myelopathy 08/10/2010 Obesity hypoventilation syndrome ([facility]) 01/04/2024 Benign essential hypertension 01/04/2024 Right carpal tunnel syndrome 01/04/2024 Type 2 diabetes mellitus with hyperglycemia, with long-term current use of insulin ([facility]) 02/12/2024 Moderate persistent asthma without complication ([facility]) 02/19/2024 Pulmonary hypertension ([facility]) 08/06/2024 Dehydration 10/28/2024 Nausea & vomiting 10/28/2024 Encounter for long-term (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 medications 02/10/2025 Resolved Ambulatory Problems Diagnosis Date Noted Acute kidney injury (DREW) with acute tubular necrosis (ATN) 09/30/2021 Acute pain of left shoulder 04/06/2023 Shoulder joint pain 04/06/2021 Carpal tunnel syndrome of left wrist 04/06/2023 Convulsions in the ([facility]) 09/30/2009 Cubital tunnel syndrome on left 11/04/2022 Fecal incontinence 06/22/2016 High anion gap metabolic acidosis 09/30/2021 Hyperglycemia 03/01/2019 Mild intellectual disability 09/30/2009 Other chronic pain 04/06/2023 Pneumonia due to infectious organism 09/29/2021 Poorly controlled diabetes mellitus ([facility]) 08/10/2015 Normal gynecologic examination 06/09/2015 Missed period 04/06/2023 DKA, type 1, not at goal ([facility]) 09/27/2021 Type 2 diabetes mellitus ([facility]) 09/30/2009 Cavitary lesion of lung 08/10/2023 Other chest pain 08/10/2023 Hypoxia 01/04/2024 Chronic hypoxic respiratory failure ([facility]) 02/19/2024 Acute pain of right knee 05/29/2024 Past Medical History: Diagnosis Date Ankle fracture Anxiety and depression At low risk for fall Bilateral leg edema Chest pain, central Chronic left shoulder pain Chronic pain Chronic respiratory failure ([facility]) Epilepsy ([facility]) GERD (gastroesophageal reflux disease) History of being hospitalized History of medical problems Hyperlipidemia Insomnia, persistent MDD (major depressive disorder), recurrent episode, mild Morbid obesity with BMI of 40.0-44.9, adult ([facility]) Nocturnal hypoxemia Nonsmoker OAB (overactive bladder) Obesity JOSE M (obstructive sleep apnea) Postoperative urinary retention Primary osteoarthritis of left knee Seasonal allergies Type 2 diabetes mellitus with diabetic polyneuropathy, with long-term current use of insulin ([facility]) Type 2 diabetes mellitus without complication ([facility]) Vitamin D deficiency HISTORY PAST MEDICAL HISTORY SOCIAL HISTORY Past Medical History: Diagnosis Date Ankle fracture Anxiety and depression At low risk for fall Bilateral leg edema Chest pain, central Chronic left shoulder pain Chronic pain Chronic respiratory failure ([facility]) Dyslipidemia Epilepsy ([facility]) Childhood epilepsy JOHN (generalized anxiety disorder) Genital warts GERD (gastroesophageal reflux disease) History of being hospitalized pneumonia, diabetes, infection [10/29/21-11/05/21] History of medical problems mild mental retardation Hyperlipidemia Insomnia, persistent Irritable bowel syndrome with diarrhea MDD (major depressive disorder), recurrent episode, mild Migraine without aura and without status migrainosus, not intractable Morbid obesity with BMI of 40.0-44.9, adult ([facility]) Nocturnal hypoxemia Nonsmoker OAB (overactive bladder) Obesity JOSE M (obstructive sleep apnea) Postoperative urinary retention Primary osteoarthritis of left knee Seasonal allergies Type 2 diabetes mellitus with diabetic polyneuropathy, with long-term current use of insulin ([facility]) Type 2 diabetes mellitus with hyperglycemia, with long-term current use of insulin ([facility]) Type 2 diabetes mellitus without complication ([facility]) Vitamin D deficiency Social History [...] 12/29/2017 Diagnostic laparoscopy LAPAROTOMY OVARIAN CYSTECTOMY 03/31/2023 [place] ARTHROCENTESIS ASPIR&/INJ MAJOR JT/BURSA W/O US Right [...] nursing note reviewed. Exam conducted with a drupal architect present. Vitals: Estimated body mass index is [...] by Arlene Mullen LPN on behalf of: Feilz Benz DO documented in this encounter [facility] 03-14-2025 History of Present illness Narrative Images from the original note were not included. HISTORY OF PRESENT ILLNESS: EST PT Carissa Santos is an 44 y.o. @ female. (EST PT) - RECHECK LT KNEE PAIN - S/P MRI DONE AT [facility] ON 03/04/25 XRAY LT KNEE EPIC 02/25/25 MRI LT KNEE 03/04/25 [facility] C/O POPPING- CONSTANT PAIN- PAIN ANTERIOR KNEE- INCREASE PAIN WITH POPPING- +INSTABILITY- PAIN IS CONSTANT- WAKES HS- +TYLENOL/MOTRIN - PT STATES SHE TRIED WALKER; MINIMAL RELIEF- STATES SHE LEFT WALKER AT HER OLD HOME; RECENTLY MOVED [place]: PT FELL AND LANDED ON KNEE~1.5 MO AGO- DR SHA LEVY ALLERGIES: Allergies Allergen Reactions Sulfamethoxazole-Trimethoprim Hives and [...] (CELEXA) 40 mg, Oral, Daily Continuous Glucose Long Term Care Administrator (FreeStyle Crystal 3 [place]) device 1 Application, Does not apply, Continuous Continuous Glucose Sensor (FreeStyle Crystal 3 Sensor) [facility] USE TO MONITOR BLOOD SUGAR DIRECTED. CHANGE [...] UNITS DAILY* insulin pen needle (Droplet Pen [place]) [facility]G [facility] Use as instructed lamoTRIgine (LAMICTAL) 200 mg, [...] Use: Not At Risk (12/20/2023) Received from [facility] Frequency of Alcohol Consumption: Never Average Number of Drinks: Patient does not drink Frequency of Binge Drinking: Never IMAGING: Procedures Orders Placed This Encounter Procedures Ambulatory referral to Physical Therapy Standing Status: Future Number of Occurrences: 1 Expected Date: 03/14/2025 Expiration Date: 09/14/2025 Referral Priority: Routine Referral Type: Consultation Referral Reason: Consult and Treat Referred to Provider: Donny Dominguez, PT Requested Specialty: Physical Therapy Number of Visits [...] requiring urgent evaluation. documented in this encounter [facility] 03-13-2025 Miscellaneous Notes Gyro Mechanic called [facility] and spoke with writer savannah Leyva to verify if patient qualified for POC, per Autumn, Medicaid does not cover POCs. Gyro Mechanic verbalized understanding. documented in this encounter [facility] 03-13-2025 Telephone encounter Note Gyro Mechanic called [facility] and spoke with writer savannah Leyva to verify if patient qualified for POC, per Autumn, Medicaid does not cover POCs. Gyro Mechanic verbalized understanding. [facility] 03-13-2025 History of Present illness Narrative Images from the original note were not included. Images from the original note were not included. [facility] Progress Note Patient - Carissa Santos Age - 44 y.o. - 1980 [place] [employer] # - [id number] ASSESSMENT Chronic hypoxic respiratory failure -2L with [...] exercise program advised Will reach out to [facility] and inquire regarding POC and if issue with her not being able to obtain She expresses plan to pursue disability Return to clinic in 6 months or earlier if needed SUBJECTIVE Carissa presents for follow-up of her [...] PFT Results Radiology Dr. Lindsay Arrieta DO. [facility] Office: [phone] [facility]25 Miscellaneous Notes Patient LVM w/no information. Gyro Mechanic LVM for patient to call back. [facility] this [facility] 03-11-2025 Telephone encounter Note Patient LVM w/no information. Gyro Mechanic LVM for patient to call back. [facility] 03-05-2025 Miscellaneous Notes [facility] MEDICATION [facility]NAGEMENT [address] [facility] [id number] New referral received by [facility] for diabetes. Patient was contacted to schedule appointment at [facility] ([facility] This was my first attempt to reach the patient and was able to schedule the patient on 03/20 at 1:30 . Patient will be asked to bring PPMM Additional Info: Medication List, Blood Glucose Meter, and Blood Sugar Log. Referral added to spreadsheet. Referring provider: Katelyn Recio MD Patient's case supervisor, Gosia, called to ask if patient's PCP can be kept in the loop on patient's appts since the referral came from cardiology. Gyro Mechanic confirmed that PCP is Diaz Dalton and advised that PPMM will keep him in the loop. Per conversation with [facility], DM referral should come from PCP anyway. Gyro Mechanic sent referral and renewal CA to PCP. documented in this encounter [facility] 03-05-2025 Telephone encounter Note [facility]NAG[facility] [address] [facility] [id number] New referral received by [facility] for diabetes. Patient was contacted to schedule appointment at [facility] ([facility] This was my first attempt to reach the patient and was able to schedule the patient on 03/20 at 1:30 . Patient will be asked to bring PPMM Additional Info: Medication List, Blood Glucose Meter, and Blood Sugar Log. Referral added to spreadsheet. Referring provider: Katelyn Recio MD [facility] 03-05-2025 Telephone encounter Note Patient's case supervisor, Gosia, called to ask if patient's PCP can be kept in the loop on patient's appts since the referral came from cardiology. Gyro Mechanic confirmed that PCP is Diaz Dalton and advised that PPMM will keep him in the loop. Per conversation with [facility] Ly, DM referral should come from PCP anyway. Gyro Mechanic sent referral and renewal CA to PCP. [facility] 03-05-2025 Telephone encounter Note Reviewed MRI, Possible Meniscus tear. No fracture... I want her to see Dr. Jackson for eval, given her pain and symptoms... please cancel appt with me and schedule with Dr. Jackson within the next week or 2 [facility] 03-05-2025 Miscellaneous Notes Reviewed MRI, Possible Meniscus [...] she said that she hasn't heard from [facility] for the MRI yet, I told her [...] is so bad. Please advise she uses [facility] documented in this encounter [facility] 03-05-2025 Miscellaneous Notes Images from the original note were not included. LMOM for pts case supervisor Gosia (ok-hipaa) to update on LLDs PPMM recommendation. Gyro Mechanic asked for r/c to office for any further questions. documented in this encounter [facility] 03-05-2025 Telephone encounter Note Images from the original note were not included. [facility] 03-05-2025 Telephone encounter Note LMOM for pts case supervisor Gosia (ok-hipaa) to update on LLDs PPMM recommendation. Gyro Mechanic asked for r/c to office for any further questions. [facility] 02-28-2025 Telephone encounter Note I called Carissa and explained to her that we didn't want to use narcotics at this time, but she can take 600 mg Mortrin 3x a day and supp with Tylenol between. Advise Non weight bearing on that leg until we got the MRI, she said that she hasn't heard from [facility] for the MRI yet, I told her to give them a call and see if she can get that started. She said she will call them, told if she had any other questions or needed anything that we were here until 3:00pm today [facility] 02-27-2025 Telephone encounter Note I do not recommend anything narcotic at this time.. she can take motrin 600mg 3 times a day and Tylenol as directed... she is to be using a walker with no weight bearing if painful pending MRI. ( Knee pain present for 1 month with a fall) if fever develops or symptoms worsen recommend ER. [facility] 02-27-2025 Telephone encounter Note Carissa was here 02/25/25 seen Cullen, she called this morning wanting to know if we could call her in something for pain, she said that she can't sleep her pain is so bad. Please advise she uses [facility] 02-25-2025 History of Present illness Narrative [...] IV contrast MRI LT knee w/o at [facility]. Orbits if needed. please push images to [facility] pacs Standing Status: Future Expected Date: 02/25/2025 [...] requiring urgent evaluation. Visit was preformed using [employer] speech recognition. documented in this encounter [facility] 02-25-2025 Miscellaneous Notes Images from the original note were not included. Patient called and stated that she needed a PA for her Trelegy, content writer initiated PA through covermymeds. PA came back denied for Trelegy 200. Images from the original note were not included. Reinitiated PA through ROSAURA Hartley for Trelegy 200 approved. Great thanks documented in this encounter [facility] 02-25-2025 Telephone encounter Note Images from the original note were not included. Patient called and stated that she needed a PA for her Trelegy, content writer initiated PA through covermymeds. PA came back denied for Trelegy 200. [facility] 02-25-2025 Telephone encounter Note Images from the original note were not included. Reinitiated PA through ROSAURA Hartley for Trelegy [address] [facility] 02-25-2025 Telephone encounter Note Great thanks [facility] 02-17-2025 Miscellaneous Notes Patient called office and stated that she only has 2 weeks left on her Trelegy 200, patient is requesting a refill as she does not see SE until 03/13/2025. Patient is requesting that the Rx be sent to [place], [place]. Please review and advise. Okay to send refills Script sent to get patient to office appt on 03-13-25. At office appt, will need to discuss additional refills with physicianBrian Vega - please call patient and notify. Gyro Mechanic called patient and informed her that Rx was sent to pharmacy and that she would have enough to get her through until her appointment, patient verbalized understanding. documented in this encounter [facility] 02-17-2025 Telephone encounter Note Patient called office and stated that she only has 2 weeks left on her Trelegy 200, patient is requesting a refill as she does not see SE until 03/13/2025. Patient is requesting that the Rx be sent to [facility] [place], [place]. Please review and advise. [facility] 02-17-2025 Telephone encounter Note Okay to send refills [facility] 02-17-2025 Telephone encounter Note Script sent to get patient to office appt on 03-13-25. At office appt, will need to discuss additional refills with physician. Silvia - please call patient and notify. [facility] 02-17-2025 Telephone encounter Note Gyro Mechanic called patient and informed her that Rx was sent to pharmacy and that she would have enough to get her through until her appointment, patient verbalized understanding. [facility] 02-10-2025 History of Present illness Narrative Associated Problem(s): Type 2 diabetes mellitus with hyperglycemia, with long-term current use of insulin (CMS/HCC) BS elevated and increase semglee to 20 units BID. Resume moujaro. Associated Problem(s): Osteoarthritis of knee Unsteady when moving and script for rolling walker to patient. Associated Problem(s): Mild episode of recurrent major depressive disorder (HCC) (CMS/HCC) Symptoms worse and increase celexa. Warned will take 2-3 weeks to notice improvement in mood. Associated Problem(s): JOHN (generalized anxiety disorder) ([facility]/HCC) Symptoms worse and increase celexa. Warned will [...] continue lasix. Associated Problem(s): Benign essential hypertension ([facility]/HCC) BP controlled and monitor PRN. Images from [...] Depression recently worse. Moved and found out [id number] . Down, sad, and crying. Not want [...] Addressed This Visit JOHN (generalized anxiety disorder) (CMS/HCC) Symptoms worse [...] script for rolling walker to patient. Dyslipidemia ([facility]) Relevant Orders Lipid panel Benign essential hypertension ([facility]) BP controlled and monitor PRN. Relevant Orders Basic metabolic panel Type 2 diabetes mellitus with hyperglycemia, with long-term current use of insulin ([facility]) - Primary BS elevated and increase semglee to 20 units BID. Resume moujaro. Relevant Medications insulin glargine (Semglee) 100 UNIT/ML pen Tirzepatide (Mounjaro) 2.5 MG/0.5ML solution auto-injector Other Relevant Orders Microalbumin / creatinine, urine ratio Hemoglobin A1c Encounter for long-term (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 medications Relevant Orders CBC and differential Hepatic function panel documented in this encounter [facility] 01-03-2025 History of Present illness Narrative Carissa Santos Date of visit: 01/03/2025 Date of : 1980 Age: 44 y.o. Patient Active Problem List Diagnosis Hyperglycemia Chest wall pain Type 2 diabetes mellitus with hyperglycemia, with long-term current use of insulin ([facility]) Mild developmental delay Obstructive sleep apnea syndrome Hyperlipidemia associated with type 2 diabetes mellitus ([facility]) Abnormal ECG during exercise stress test Mediastinal lymphadenopathy Acute cystitis without hematuria Pulmonary nodule Dyspnea on exertion Moderate persistent asthma without complication Chronic hypoxic respiratory failure ([facility]) BMI 40.0-44.9, adult ([facility]) Pulmonary hypertension ([facility]) COPD (chronic obstructive pulmonary disease) ([facility]) Chronic heart failure with preserved ejection fraction ([facility]) Dyslipidemia Edema Gastroesophageal reflux disease HTN (hypertension) [...] accompanied by her aide, Gosia, from [facility]. Today she is unaccompanied CV TESTING HISTORY: [...] 06/26/2024 Performed by Harinder Estrella MD at [facility]ATH [facility]S CHOLECYSTECTOMY COLONOSCOPY 2021 COLONOSCOPY DIAGNOSTIC / SCREENING N/A 09/12/2024 Performed by Aliya Solorzano DO at [facility] ENDOBR[facility]IAL ULTRASOUND BRONCHOSCOPY N/A 11/22/2023 Performed by Libby Finley MD at [facility] Right heart cath N/A 06/26/2024 Performed by Harinder Estrella MD at [facility] C[facility]ATH [facility]S TONSILLECTOMY TUBAL LIGATION [...] min Stress: No Stress Concern Present (12/20/2023) [employer] - Occupational Stress Questionnaire Feeling of Stress : Only a little Social Connections: Moderately Isolated (12/20/2023) Social Connection and Isolation Panel [NHANES] Frequency of Communication with Friends and Family: More than three times a week Frequency of Social Gatherings with Friends and Family: More than three times a week Attends Jain Services: Never Active Member of Clubs or [...] Chronic heart failure with preserved ejection fraction ([facility]-HCC) 2. Primary hypertension 3. Dyspnea on exertion 4. Hyperlipidemia associated with type 2 diabetes mellitus ([facility]) 1. CTA of the coronaries with calcium [...] Referring Physician: Diaz Dalton MD [address] [place] [address] documented in this encounter [facility] 01-02-2025 Miscellaneous Notes Called patient to remind them to bring their most current copy of their medication list with them to their appt. Patient verbalizes understanding. documented in this encounter [facility] 01-02-2025 Telephone encounter Note Called patient to remind them to bring their most current copy of their medication list with them to their appt. Patient verbalizes understanding. [facility] 12-09-2024 Miscellaneous Notes PAP mask and supplies order with supportive documentation faxed to [facility]. documented in this encounter [facility] 12-09-2024 Telephone encounter Note PAP mask and supplies order with supportive documentation faxed to [facility]. [facility] 12-04-2024 History of Present illness Narrative Images [...] History: Diagnosis Date Anxiety Deep vein thrombosis ([facility]) Dental disease no teeth Depression Diabetes mellitus type I ([facility]) Elevated cholesterol GERD (gastroesophageal reflux disease) Hyperlipidemia [...] in the morning., Disp: , Rfl: Vitals: 12/04/24 1304 BP: 99/64 Pulse: 87 SpO2: 98% [...] min Stress: No Stress Concern Present (12/20/2023) [employer] - Occupational Stress Questionnaire Feeling of Stress : Only a little Social Connections: Moderately Isolated (12/20/2023) Social Connection and Isolation Panel [NHANES] Frequency of Communication with Friends and Family: More than three times a week Frequency of Social Gatherings with Friends and Family: More than three times a week Attends Jain Services: Never Active Member of Clubs or [...] (3%)=58.3 events/hour; AHI (4%)=38.5 events/hour; Zach SpO2=61.0%; (Tmzeyh=571.0 lbs; BMI=45.5 kg/m2) CPAP 16 cm H20 pressure. DME: [facility] Data card was available for PAP usage data download. PAP compliance is unsatisfactory. Impression: Carissa was seen today for sleep apnea. Diagnoses and all orders for this visit: Obstructive sleep apnea syndrome - PAP Mask and Supplies Noncompliance with CPAP treatment Chronic hypoxic respiratory failure, on home oxygen therapy ([facility]) Obesity, Class III, BMI 40-49.9 (morbid obesity) ([facility]) Chronic hypoxic respiratory failure -2L with exertion [...] machine if not completed already. Tax ID: [id number] Scheduling Instructions: Length of Need: 12 months [...] not to drive if sleepy, and to truss puller helper if sleepiness occurs while driving. Above plan [...] that have escaped final proofreading. Pacheco Madrigal [facility] Office: [phone] 10:08 AM on 12/06/2024 CC: MD Pacheco BULL APRN-CNP 12/06/24 1008 documented in this encounter [facility] 12-04-2024 Instructions DUSTIN Quarles - 12/04/2024 1:00 PM EDT If you re looking for general health and wellness resources, please [email or web address] documented in this encounter [facility] 11-07-2024 History of Present illness Narrative Associated Problem(s): Type 2 diabetes mellitus with hyperglycemia, with long-term current use of insulin ([facility]) Reports BS occasionally low but A1C 12.8. Continue semglee and increase jardiance. Stick to ADA diet and limit carbs. Associated Problem(s): Mild episode of recurrent major depressive disorder (HCC) (CMS/HCC) Mood controlled with medication and continue. Associated Problem(s): Gastroesophageal reflux disease Symptoms controlled with protonix and continue. Associated Problem(s): JOHN (generalized anxiety disorder) ([facility]) Mood controlled with medication and continue. Use ativan PRN. Associated Problem(s): Class 3 severe obesity due to excess calories with serious comorbidity and body mass index (BMI) of 40.0 to 44.9 in adult ([facility]) Weight loss indicated. Associated Problem(s): Chronic heart failure with preserved ejection fraction (HFpEF) ([facility]) Continue lasix. Images from the [...] Addressed This Visit JOHN (generalized anxiety disorder) ([facility]) Mood controlled with medication and continue. Use ativan PRN. Chronic heart failure with preserved ejection fraction (HFpEF) ([facility]) Continue lasix. Relevant Medications furosemide (Lasix) 40 MG tablet Gastroesophageal reflux disease Symptoms controlled with protonix and continue. Mild episode of recurrent major depressive disorder (HCC) ([facility]) Mood controlled with medication and continue. Class 3 severe obesity due to excess calories with serious comorbidity and body mass index (BMI) of 40.0 to 44.9 in adult ([facility]) Weight loss indicated. Type 2 diabetes mellitus with hyperglycemia, with long-term current use of insulin ([facility]) - Primary Reports BS occasionally low but A1C 12.8. Continue semglee and increase jardiance. Stick to ADA diet and limit carbs. Relevant Medications empagliflozin (Jardiance) 25 MG Continuous Glucose Long Term Care Administrator (FreeStyle Crystal 3 [place]) device documented in this encounter [facility] 10-28-2024 History of Present illness Narrative Associated Problem(s): Chronic heart failure with preserved ejection fraction (HFpEF) ([facility]) Continue lasix. Associated Problem(s): Chronic hypoxic respiratory failure ([facility]) On home oxygen and follow with pulmonology. Associated Problem(s): Class 3 severe obesity due to excess calories with serious comorbidity and body mass index (BMI) of 40.0 to 44.9 in adult ([facility]) Weight loss indicated. Associated Problem(s): Type 2 diabetes mellitus with hyperglycemia, with long-term current use of insulin ([facility]) Stop mounjaro and decrease insulin. [...] advised to stop mounjaro. Dose due Monday. [place] weak and lightheaded. To ER and labs [...] hyperglycemia, with long-term current use of insulin ([facility]) Stop mounjaro and decrease insulin. Check A1C. Relevant Medications insulin glargine (Semglee) 100 UNIT/ML pen Other Relevant Orders Hemoglobin A1c Dehydration - Primary Improved after IV fluids and monitor. Continue with increased fluid intake. Nausea & vomiting Use zofran PRN. documented in this encounter [facility] 10-09-2024 History of Present illness Narrative Images [...] Diagnosis Date Ankle fracture Anxiety and depression ([facility]) At low risk for fall Bilateral leg edema Chest pain, central Chronic left shoulder pain Chronic pain Chronic respiratory failure ([facility]) Dyslipidemia ([facility]) Epilepsy ([facility]) Childhood epilepsy JOHN (generalized anxiety disorder) ([facility]) Genital warts GERD (gastroesophageal reflux disease) History of being hospitalized pneumonia, diabetes, infection [10/29/21-11/05/21] History of medical problems mild mental retardation Hyperlipidemia ([facility]) Insomnia, persistent Irritable bowel syndrome with diarrhea MDD (major depressive disorder), recurrent episode, mild ([facility]) ([facility]) Migraine without aura and without status migrainosus, not intractable ([facility]) Morbid obesity with BMI of 40.0-44.9, adult ([facility]) Nocturnal hypoxemia Nonsmoker OAB (overactive bladder) Obesity JOSE M (obstructive sleep apnea) Postoperative urinary retention Primary osteoarthritis of left knee Seasonal allergies Type 2 diabetes mellitus with diabetic polyneuropathy, with long-term current use of insulin ([facility]) Type 2 diabetes mellitus with hyperglycemia, with long-term current use of insulin ([facility]) Type 2 diabetes mellitus without complication ([facility]) Vitamin D deficiency Medications Current [...] Rfl: 10 cholecalciferol (Vitamin D-3) 50 MCG (1999 [place]) tablet, Take 2 tablets (100 mcg) by mouth Daily, Disp: 60 tablet, Rfl: 5 citalopram (CeleXA) 20 MG tablet, Take 20 mg by mouth Daily, Disp: , Rfl: Continuous Glucose Sensor (idioyle Crystal 3 Sensor) [facility], 1 each every 14 (fourteen) days, Disp: [...] Rfl: 5 insulin pen needle (Droplet Pen [place]) 32G x 4 mm [facility], USE ONE PEN NEEDLE TO INJECT MEDICATION SIX TIMES A DAY, Disp: 200 each, Rfl: 10 C-Pxbzrqftbvvw-Sougy-B12-B6 (Metanx) 3-90.314-2-35 MG capsule, Take 3 mg [...] 12/29/2017 Diagnostic laparoscopy LAPAROTOMY OVARIAN CYSTECTOMY 03/31/2023 [place] ARTHROCENTESIS ASPIR&/INJ MAJOR JT/BURSA W/O US Right [...] with type 2 diabetes mellitus (CMS/HCC) E11.42 R-Vbrxwjadezfu-Abxkv-B12-B6 (Metanx) 3-90.314-2-35 MG capsule 2. Neuritis M79.2 K-Vwxpiqoigvnj-Jtejt-B12-B6 (Metanx) 3-90.314-2-35 MG capsule Patient examined and [...] today and a prescription was sent to [facility]. I recommend follow up for at-risk diabetic [...] Carmen Bowman DPM documented in this encounter [facility] 10-07-2024 History of Present illness Narrative Carissa Santos Date of visit: 10/07/2024 Date of : 1980 Age: 44 y.o. Patient Active Problem List Diagnosis Hyperglycemia Chest wall pain Type 2 diabetes mellitus with hyperglycemia, with long-term current use of insulin ([facility]) Mild developmental delay Obstructive sleep apnea syndrome Hyperlipidemia associated with type 2 diabetes mellitus ([facility]) Abnormal ECG during exercise stress test Mediastinal lymphadenopathy Acute cystitis without hematuria Pulmonary nodule Dyspnea on exertion Moderate persistent asthma without complication Chronic hypoxic respiratory failure ([facility]) BMI 40.0-44.9, adult ([facility]) Pulmonary hypertension ([facility]) COPD (chronic obstructive pulmonary disease) ([facility]) Chronic heart failure with preserved ejection fraction ([facility]) Allergies Allergen Reactions Sulfamethoxazole-Trimethoprim Hives, Itching and [...] today by her aide, Gosia, from [facility] CV TESTING HISTORY: ECHO: Echo complete W/ [...] History: Diagnosis Date Anxiety Deep vein thrombosis ([facility]) Dental disease no teeth Depression Diabetes mellitus type I (CMS-HCC) Elevated cholesterol GERD (gastroesophageal reflux disease) Hyperlipidemia Hypertension Lymphadenopathy 2023 MR (mental retardation) Obesity Panic disorder Visual impairment Past Surgical History: Procedure Laterality Date Cardiac Invasive N/A 06/26/2024 Performed by Harinder Estrella MD at [facility] CARDI[facility] CATH [facility]S CHOLECYSTECTOMY COLONOSCOPY 2021 COLONOSCOPY DIAGNOSTIC / SCREENING N/A 09/12/2024 Performed by Aliya Solorzano DO at [facility] ENDOBRON[facility]IAL ULTRASOUND BRONCHOSCOPY N/A 11/22/2023 Performed by Libby Finley MD at [facility] Right heart cath N/A 06/26/2024 Performed by Harinder Estrella MD at [facility] C[facility] CATH [facility]S TONSILLECTOMY TUBAL LIGATION [...] min Stress: No Stress Concern Present (12/20/2023) [employer] - Occupational Stress Questionnaire Feeling of Stress : Only a little Social Connections: Moderately Isolated (12/20/2023) Social Connection and Isolation Panel [NHANES] Frequency of Communication with Friends and Family: More than three times a week Frequency of Social Gatherings with Friends and Family: More than three times a week Attends Jain Services: Never Active Member of Clubs or [...] Chronic heart failure with preserved ejection fraction ([facility]) 3. Type 2 diabetes mellitus with hyperglycemia, with long-term current use of insulin ([facility] [facility] - MOUNJARO 2.5 mg/0.5 mL pen injector; [...] Referring Physician: Diaz Dalton MD [address] [place] [address] documented in this encounter [facility] 10-07-2024 Instructions Katelyn Recio MD - 10/07/2024 8:15 AM EST Discontinue Actos Start Jardiance Increase tirzepatide/Mounjaro documented in this encounter [facility] 10-04-2024 Miscellaneous Notes Called patient to remind them to bring their most current copy of their medication list with them to their appt. Patient verbalizes understanding. documented in this encounter [facility] 10-04-2024 Telephone encounter Note Called patient to remind them to bring their most current copy of their medication list with them to their appt. Patient verbalizes understanding. [facility] 09-17-2024 Miscellaneous Notes ----- Message from Dr. Aliya Solorzano DO sent at 09/17/2024 10:23 AM EST ----- Please let patient know that we did not get a polyp ibut I do recommend surveillance colonoscopy in 5 years because there was a polyp but it was not retrieved. ThanksDr. Lawrence Spoke with patient regarding pathology results. Patient verbally understood with no further questions. Recall put in chart. [facility] encounter Note ----- Message from Dr. Aliya Solorzano DO sent at 09/17/2024 10:23 AM EST ----- Please let patient know that we did not get a polyp ibut I do recommend surveillance colonoscopy in 5 years because there was a polyp but it was not retrieved. Thanks, Dr. Lawrence [facility]24 Telephone encounter Note Spoke with patient regarding pathology results. Patient verbally understood with no further questions. Recall put in chart. [facility]24 Miscellaneous Notes Preoperative Education Checklist- General Surgery date: 09/12/24 Surgery time: 1130 Arrival time: 929 1. Bring a photo ID and your insurance card with you the day of surgery. You will check in at the main lobby of the [facility]- registration desk is straight ahead as soon as you walk in. Tell them you are here for surgery. 2. If you have a Living Will/Durable Power of Printer Slotter Feeder for Health Care that is not on [...] after you have bathed. 5. NO nail mozambican/acrylic on at least one finger. If you are having a hand, wrist or foot surgery then all nail mozambican and artificial/acrylic nails must be removed from [...] please call the Preadmission Testing office at [phone], Mon.-Fri. 7 a.m.-3 p.m. Leave a voicemail [...] morning of procedure documented in this encounter [facility] 09-05-2024 Nurse Note Preoperative Education Checklist- General Surgery date: 09/12/24 Surgery time: 1130 Arrival time: 929 1. Bring a photo ID and your insurance card with you the day of surgery. You will check in at the main lobby of the [facility]- registration desk is straight ahead as soon as you walk in. Tell them you are here for surgery. 2. If you have a Living Will/Durable Power of Printer Slotter Feeder for Health Care that is not on [...] after you have bathed. 5. NO nail mozambican/acrylic on at least one finger. If you are having a hand, wrist or foot surgery then all nail mozambican and artificial/acrylic nails must be removed from [...] please call the Preadmission Testing office at [phone], Mon.-Fri. 7 a.m.-3 p.m. Leave a voicemail [...] blister with device Take morning of procedure [facility] 08-06-2024 History of Present illness [...] Gluc Sensor (FreeStyle Crystal 14 Day Sensor) [facility] apply 1 SENSOR to back OF UPPER [...] UNITS DAILY* insulin pen needle (Droplet Pen [place]) 32G x 4 mm [facility] USE ONE PEN NEEDLE TO INJECT MEDICATION [...] to allergen 10/01/2009 JOHN (generalized anxiety disorder) ([facility] 10/01/2009 Contracture, unspecified ankle 04/06/2023 Chronic heart failure with preserved ejection fraction (HFpEF) ([facility]) 04/06/2023 Equinus deformity of left foot 04/06/2023 Gastroesophageal reflux disease 04/06/2023 Genital warts 04/06/2023 Hot flashes due to menopause 04/06/2023 Type 2 diabetes mellitus with microalbuminuria, with long-term current use of insulin ([facility]) 04/06/2023 Internal derangement of left shoulder 04/06/2023 Irritable bowel syndrome with diarrhea 04/06/2023 Mild developmental delay 09/29/2021 Migraine without aura and without status migrainosus, not intractable ([facility]) 04/06/2023 Mild episode of recurrent major depressive disorder (HCC) ([facility]) 04/06/2023 Class 3 severe obesity due to excess calories with serious comorbidity and body mass index (BMI) of 40.0 to 44.9 in adult ([facility]) 11/21/2022 Type 2 diabetes mellitus with polyneuropathy ([facility]) 06/10/2021 Obstructive sleep apnea syndrome 09/30/2009 Osteoarthritis of knee 04/06/2023 Overactive bladder 04/06/2023 Panic disorder without agoraphobia ([facility]) 11/12/2009 Dyslipidemia ([facility]) 04/22/2010 Spondylosis without myelopathy 08/10/2010 Hypoxia 01/04/2024 Obesity hypoventilation syndrome ([facility]) 01/04/2024 Elevated blood-pressure reading without diagnosis of hypertension 01/04/2024 Right carpal tunnel syndrome 01/04/2024 Type 2 diabetes mellitus with hyperglycemia, with long-term current use of insulin ([facility]) 02/12/2024 Chronic hypoxic respiratory failure ([facility]) 02/19/2024 Moderate persistent asthma without complication ([facility]) 02/19/2024 Pulmonary hypertension ([facility]) 08/06/2024 Resolved Ambulatory Problems Diagnosis Date Noted Acute kidney injury (DREW) with acute tubular necrosis (ATN) ([facility]) 09/30/2021 Acute pain of left shoulder 04/06/2023 Shoulder joint pain 04/06/2021 Carpal tunnel syndrome of left wrist 04/06/2023 Convulsions in the 09/30/2009 Cubital tunnel syndrome on left 11/04/2022 Fecal incontinence 06/22/2016 High anion gap metabolic acidosis 09/30/2021 Hyperglycemia 03/01/2019 Mild intellectual disability ([facility]) 09/30/2009 Other chronic pain 04/06/2023 Pneumonia due to infectious organism 09/29/2021 Poorly controlled diabetes mellitus ([facility]) 08/10/2015 Normal gynecologic examination 06/09/2015 Missed period 04/06/2023 DKA, type 1, not at goal ([facility]) 09/27/2021 Type 2 diabetes mellitus ([facility]) 09/30/2009 Cavitary lesion of lung 08/10/2023 Other chest pain 08/10/2023 Acute pain of right knee 05/29/2024 Past Medical History: Diagnosis Date Ankle fracture Anxiety and depression ([facility]) At low risk for fall Bilateral leg edema Chest pain, central Chronic left shoulder pain Chronic pain Chronic respiratory failure ([facility]) Epilepsy ([facility]) GERD (gastroesophageal reflux disease) History of being hospitalized History of medical problems Hyperlipidemia ([facility]) Insomnia, persistent MDD (major depressive disorder), recurrent episode, mild (HCC) ([facility]) Morbid obesity with BMI of 40.0-44.9, adult ([facility]) Nocturnal hypoxemia Nonsmoker OAB (overactive bladder) Obesity JOSE M (obstructive sleep apnea) Postoperative urinary retention Primary osteoarthritis of left knee Seasonal allergies Type 2 diabetes mellitus with diabetic polyneuropathy, with long-term current use of insulin ([facility]) Type 2 diabetes mellitus without complication ([facility]) Vitamin D deficiency HISTORY PAST MEDICAL HISTORY SOCIAL HISTORY Past Medical History: Diagnosis Date Ankle fracture Anxiety and depression ([facility]) At low risk for fall Bilateral leg edema Chest pain, central Chronic left shoulder pain Chronic pain Chronic respiratory failure ([facility]) Dyslipidemia ([facility]) Epilepsy ([facility]) Childhood epilepsy JOHN (generalized anxiety disorder) ([facility]) Genital warts GERD (gastroesophageal reflux disease) History of being hospitalized pneumonia, diabetes, infection [10/29/21-11/05/21] History of medical problems mild mental retardation Hyperlipidemia ([facility]) Insomnia, persistent Irritable bowel syndrome with diarrhea MDD (major depressive disorder), recurrent episode, mild (HCC) ([facility]) Migraine without aura and without status migrainosus, not intractable ([facility]) Morbid obesity with BMI of 40.0-44.9, adult ([facility]) Nocturnal hypoxemia Nonsmoker OAB (overactive bladder) Obesity JOSE M (obstructive sleep apnea) Postoperative urinary retention Primary osteoarthritis of left knee Seasonal allergies Type 2 diabetes mellitus with diabetic polyneuropathy, with long-term current use of insulin ([facility]) Type 2 diabetes mellitus with hyperglycemia, with long-term current use of insulin ([facility]) Type 2 diabetes mellitus without complication ([facility]) Vitamin D deficiency Social History [...] 12/29/2017 Diagnostic laparoscopy LAPAROTOMY OVARIAN CYSTECTOMY 03/31/2023 [place] ARTHROCENTESIS ASPIR&/INJ MAJOR JT/BURSA W/O US Right [...] nursing note reviewed. Exam conducted with a drupal architect present. Vitals: Estimated body mass index is [...] Feliz Benz DO documented in this encounter [facility] 08-06-2024 History of Present illness Narrative Associated Problem(s): Type 2 diabetes mellitus with hyperglycemia, with long-term current use of insulin ([facility]) BS elevated with steroids and [...] 44 y.o. female who presents for Follow-up ([facility] f/UP). ER follow up from 07/21 for [...] to General Surgery documented in this encounter [facility] 07-30-2024 History of Present illness Narrative Received critical lab result from blood work drawn today of a glucose of 577. Spoke with patient on the phone. She states her blood sugars have been running high all day. She was instructed to call her PCP for further instructions. She is on insulin. DUSTIN Rausch 07/30/24 [id number] documented [facility] this encounter [facility] 07-30[facility]24 Miscellaneous Notes Contract: ROBBY Markham calling from [facility] lab second page for critical lab on patient. Please call Shahrzad @ [phone]. Sent secure chat to Cassy Davila documented in this encounter [facility] 07-30-2024 Telephone encounter Note Contract: ROBBY Markham calling from [facility] lab second page for critical lab on patient. Please call Shahrzad @ [phone]. Sent secure chat to Cassy Davila [facility] 07-30-2024 Miscellaneous Notes Contract: ROBBY See for Critical Lab Secure Chat sent to Cassy Davila CNP Routing sent documented in this encounter [facility] 07-30-2024 Telephone encounter Note Contract: ROBBY See for Critical Lab [facility] 07-30-2024 Telephone encounter Note Secure Chat sent to Cassy Davila CNP Routing sent [facility] 07-18-2024 History of Present illness Narrative Carissa Santos Date of visit: 07/18/2024 Date of : 1980 Age: 43 y.o. Patient Active Problem List Diagnosis Hyperglycemia Chest pain, unspecified Type 2 diabetes mellitus with hyperglycemia, with long-term current use of insulin ([facility]) Mild developmental delay Obstructive sleep apnea syndrome Hyperlipidemia associated with type 2 diabetes mellitus ([facility]) Abnormal ECG during exercise stress test Mediastinal lymphadenopathy Acute cystitis without hematuria Pulmonary nodule Dyspnea on exertion Moderate persistent asthma without complication Chronic hypoxic respiratory failure ([facility]) BMI 45.0-49.9, adult ([facility]) Pulmonary hypertension ([facility]) Allergies Allergen Reactions Sulfamethoxazole-Trimethoprim Hives, Itching and [...] total) by mouth every 6 (six) hours. zcnbqjyymev-edsgtekdf-diqbabcd (TRELEGY ELLIPTA) 200-62.5-25 mcg blister with device [...] History: Diagnosis Date Anxiety Deep vein thrombosis ([facility]) Dental disease no teeth Depression Diabetes mellitus type I ([facility]) Elevated cholesterol GERD (gastroesophageal reflux disease) Hyperlipidemia Hypertension Lymphadenopathy 2024 MR (mental retardation) Obesity Panic disorder Visual impairment No data recorded No data recorded No data recorded Past Surgical History: Procedure Laterality Date Cardiac Invasive N/A 06/26/2024 Performed by Harinder Estrella MD at [facility] CARDIAC CATH LABS CHOLECYSTECTOMY COLONOSCOPY 2021 ENDOBRONCHIAL ULTRASOUND BRONCHOSCOPY N/A 11/22/2023 Performed by Libby Finley MD at [facility] Right heart cath N/A 06/26/2024 Performed by Harinder Estrella MD at [facility] CARDIAC CATH LABS TONSILLECTOMY TUBAL LIGATION [...] min Stress: No Stress Concern Present (12/20/2023) [employer] - Occupational Stress Questionnaire Feeling of Stress : Only a little Social Connections: Moderately Isolated (12/20/2023) Social Connection and Isolation Panel [NHANES] Frequency of Communication with Friends and Family: More than three times a week Frequency of Social Gatherings with Friends and Family: More than three times a week Attends Jain Services: Never Active Member of Clubs or [...] 1. Dyspnea on exertion 2. Pulmonary hypertension ([facility]) Assessment: Chronic dyspnea on exertion [...] next visit. She has upcoming visit with cutter operator tile. Follow-up with Cardiology in a few months to reassess volume status. TODAYS ORDERS No orders of the defined types were placed in this encounter. FOLLOW UP No follow-ups on file. PCP: DIAZ DALTON MD Referring Physician: Diaz Dalton MD [address] [facility] [facility] [place] [place] [address] [address] this encounter [facility] 07-17-2024 Miscellaneous Notes Called patient to remind them to bring their most current copy of their medication list with them to their appt. Patient verbalizes understanding. documented in this encounter [facility] 07-17-2024 Telephone encounter Note Called patient to remind them to bring their most current copy of their medication list with them to their appt. Patient verbalizes understanding. [facility] 07-15-2024 History of Present illness Narrative Images [...] symptoms develop for requiring urgent evaluation. Barry Snowden, FINA-TAX EXAMINING TECHNICIAN documented in this encounter [facility] 07-04-2024 History of Present illness Narrative Patient presents to [place] office for post cardiac catheterization site evaluation. [...] to that appointment. documented in this encounter [facility] 07-03-2024 Miscellaneous Notes Called patient to remind them to bring their most current copy of their medication list with them to their appt. Patient verbalizes understanding. documented in this encounter [facility] 07-03-2024 Telephone encounter Note Called patient to remind them to bring their most current copy of their medication list with them to their appt. Patient verbalizes understanding. [facility] 06-24-2024 History of Present illness Narrative Images [...] symptoms develop for requiring urgent evaluation. Barry Snowden, IFNA-TAX EXAMINING TECHNICIAN documented in this encounter [facility] 06-20-2024 Miscellaneous Notes Received order from Tracie at the [facility]. Patient scheduled for cath on 06/26/24 at 8:30 am at [facility] with TLM. Notified Tracie. No Covid test required at this time. documented in this encounter [facility] 06-20-2024 Telephone encounter Note Received order from Tracie at the [place] office. Patient scheduled for cath on 06/26/24 at 8:30 am at [facility] with TLM. Notified Tracie. No Covid test required at this time. [facility] 06-19-2024 Miscellaneous Notes Called patient to remind them to bring their most current copy of their medication list with them to their appt. Patient verbalizes understanding. documented in this encounter [facility] 06-19-2024 Telephone encounter Note Called patient to remind them to bring their most current copy of their medication list with them to their appt. Patient verbalizes understanding. [facility] 06-18-2024 Note [phone] [id number] 06-18-2024 Telephone encounter Note She should have [place] at [address] in [place] [employer] Work Phone: 06-18-2024 Miscellaneous Notes She should have [place] at [employer] in [place] Patient called requesting pain meds. States that she is really hurting. documented in this encounter [facility] 06-18-2024 Telephone encounter Note Patient called requesting pain meds. States that she is really hurting. [facility] 06-17-2024 Note [facility] SURGERY Clinical Discharge Summary PERSON INFORMATION Name CARISSA SANTOS Age 43 Years 1980 Sex FEMALE Language Vietnamese PCP DIAZ DALTON Marital Status Phone Med Service Ambulatory Surgery Acct# Arrival 06/17/2024 08:13:31 Visit Reason SURGERY - RIGHT CARPAL TUNNEL RELEASE Acuity LOS 171 20:16 Address: [facility] [address] Comment: PROVIDER INFORMATION VITALS INFORMATION Vital Sign [...] every day. Durable Medical Equipment for Prescription (PublicateE SENSOR 14D) APPLY 1 SENSOR TO BACK [...] every day. Durable Medical Equipment for Prescription (PublicateE SENSOR 14D) APPLY 1 SENSOR TO BACK [...] 15 mg/24 hr (more content not included)... [facility] 06-17-2024 Note Procedure: Decompres maria teresa of median nerve right wrist with release of carpal canal Pre Op Diagnosis: Carpal tunnel syndrome right Post Op Diagnosis: Carpal tunnel syndrome right Surgeon: Dr. Aldo Miller, DO Anesthesia: MAC [...] on: 06/17/2024 10:38 EDT] Arianna Miller DO [facility] 06-14-2024 Telephone encounter Note Post op pain rx. PDMP reviewed [facility] 06-14-2024 Miscellaneous Notes Post op pain rx. PDMP reviewed documented in this encounter [facility] 06-13-2024 History of Present illness Narrative Images from the original note were not included. [facility] Progress Note Patient - Carissa Santos Age - 43 y.o. - 1980 [place] [employer] # - [id number] ASSESSMENT Chronic hypoxic respiratory failure -2L with [...] -1.94 2.91 - 4.40 (cm) Data set: [place] Z-score normal range: +/-1.65 PFT Results Radiology [...] paratracheal lymph node. Dr. Lindsay Arrieta DO. [facility] Office: [phone] documented in this encounter [facility] 06-07-2024 Telephone encounter Note We have the clearance we are good to go [facility] Work Phone: 06-07-2024 Miscellaneous Notes We [...] what you need, please call her at [phone] option 3 goes straight to her desk. documented in this encounter [facility] 06-07-2024 Telephone encounter Note Script sent. [facility] 06-07-2024 Miscellaneous Notes Script sent. Prior auth for insulin went through, but was Prior auth'd for Semglee, if we can change the script [facility] in this [facility] 06-07-2024 Telephone encounter Note Prior auth for insulin went through, but was Prior auth'd for Semglee, if we can change the script and send in 1 month to [facility]. clm [facility] 06-03-2024 Telephone encounter Note Prema at Dr Lopez office called and left regarding patient, she stated you needed an updated sx clearance for patient having wrist sx? She said there is addended one from 05/13/24 in chart. If you have questions or this is not what you need, please call her at [phone] option 3 goes straight to her desk. [facility] 05-30-2024 History of Present illness Narrative Images from the original note were not included. HISTORY OF PRESENT ILLNESS: Carissa Santos is an 43 y.o. @ female. Chief complaint RT hand N/T RT Wrist: cleared by Dr Dalton 05/13/24, had echo 05/14 [facility] Right wrist pain and N/T x 8-9 months and progressively getting worse. She notes that she is now getting pain in her thumb. She notes N/T in Thumb, IF and MF that is nearly constant. She wakes at HS. She wears OTC wrist brace. Describes pain as sharp. Trouble lifting and gripping, she admits dripping things. Admits weakness. Icing and elevating. Symptoms are worse when is using her phone and cooking. Prior treatment: EMG, ice, elevation, wrist immobilizer Pt is LT handed Pt is O2 3L 24/ nasal canula MEDICATION: Current Outpatient Medications on [...] tablet 10 cholecalciferol (Vitamin D-3) 50 MCG (2000 UT) tablet Take 2 tablets (100 mcg) by mouth in the morning. 60 tablet 5 citalopram (CeleXA) 20 MG tablet Take 20 mg by mouth Daily Continuous Blood Gluc Sensor (FreeStyle Crystal 14 Day Sensor) [facility] apply 1 SENSOR to back OF UPPER [...] each 5 insulin pen needle (Droplet Pen [place]) 32G x 4 mm [facility] USE ONE PEN NEEDLE TO INJECT MEDICATION [...] and without status migrainosus, not intractable (CMS/HCC) Morbid obesity with BMI of 40.0-44.9, adult (CMS/HCC) Nocturnal hypoxemia Nonsmoker OAB (overactive bladder) Obesity JOSE M (obstructive sleep apnea) Postoperative urinary retention Primary osteoarthritis of left knee Seasonal allergies Type 2 diabetes mellitus with diabetic polyneuropathy, with long-term current use of insulin ([facility]) Type 2 diabetes mellitus with hyperglycemia, with long-term current use of insulin ([facility]) Type 2 diabetes mellitus without complication ([facility]) Vitamin D deficiency ALLERGIES: Allergies [...] Comments denies dribbling. Incontinence denies. Musculoskeletal: CommentsSee [facility] for details. Skin: Rash denies. Neurologic: Dizziness [...] to proceed with surgery. I anticipate a [facility] marylou Miller D.O. documented in this encounter [facility] 05-29-2024 History of Present illness Narrative Associated Problem(s): Right carpal tunnel syndrome Continued pain and follow with ortho. Associated Problem(s): Type 2 diabetes mellitus with microalbuminuria, with long-term current use of insulin ([facility]) BS elevated and A1C 12.9. [...] knee pain. Fell walking down steps at [employer] 05/15 and hurt right knee. To ER [...] microalbuminuria, with long-term current use of insulin ([facility]) BS elevated and A1C 12.9. [...] relafen and flexeril. documented in this encounter [facility] 05-28-2024 Miscellaneous Notes LM to call office to reschedule appt for today. documented in this encounter [facility] 05-28-2024 Telephone encounter Note LM to call office to reschedule appt for today. [facility] 05-27-2024 Miscellaneous Notes Left message for patient to remind them to bring their most current medication list with them to their appointment. documented in this encounter [facility] 05-27-2024 Telephone encounter Note Left message for patient to remind them to bring their most current medication list with them to their appointment. [facility] 05-16-2024 Telephone encounter Note [facility] 05-16-2024 Miscellaneous Notes documented in this encounter [facility] 05-13-2024 History of Present illness Narrative Associated Problem(s): Type 2 diabetes mellitus with hyperglycemia, with long-term current use of insulin ([facility]) Reports BS improved and due for A1C. [...] Addressed This Visit JOHN (generalized anxiety disorder) (CMS/HCC) Mood controlled with medication and continue. Use ativan PRN. Edema Edema controlled with lasix and use PRN. Elevate legs PRN. Mild episode of recurrent major depressive disorder (HCC) (CMS/HCC) Mood controlled with medication and continue. Spondylosis [...] current use of insulin (CMS/HCC) - Primary Reports BS improved and due for A1C. Increase mounjaro. Stick to ADA diet and limit carbs. Relevant Medications Tirzepatide (Mounjaro) 5 MG/0.5ML solution pen-injector Other Relevant Orders Hemoglobin A1c Chronic hypoxic respiratory failure (CMS/HCC) On home oxygen and follow with pulmonology. documented in this encounter [facility] 05-07-2024 Miscellaneous Notes Oxygen order placed and faxed to [facility] with supportive documentation. documented in this encounter [facility] 05-07-2024 Telephone encounter Note Oxygen order placed and faxed to [facility] with supportive documentation. [facility] 04-24-2024 Telephone encounter Note LM for patient to call our office back. [facility] 04-24-2024 History of Present illness Narrative Reason [...] Gluc Sensor (FreeStyle Crystal 14 Day Sensor) mis apply 1 SENSOR to back OF UPPER [...] UNITS DAILY* insulin pen needle (Droplet Pen [place]) 32G x 4 mm misc USE ONE PEN NEEDLE TO INJECT MEDICATION [...] to allergen 10/01/2009 JOHN (generalized anxiety disorder) ([facility]) 10/01/2009 Carpal tunnel syndrome of left wrist 04/06/2023 Contracture, unspecified ankle 04/06/2023 Edema 04/06/2023 Equinus deformity of left foot 04/06/2023 Gastroesophageal reflux disease 04/06/2023 Genital warts 04/06/2023 Hot flashes due to menopause 04/06/2023 Type 2 diabetes mellitus with microalbuminuria, with long-term current use of insulin ([facility]) 04/06/2023 Internal derangement of left shoulder 04/06/2023 Irritable bowel syndrome with diarrhea 04/06/2023 Mild developmental delay 09/29/2021 Migraine without aura and without status migrainosus, not intractable ([facility]) 04/06/2023 Mild episode of recurrent major depressive disorder (HCC) ([facility] 04/06/2023 Morbid obesity ([facility]) 11/21/2022 Type 2 diabetes mellitus with polyneuropathy ([facility]) 06/10/2021 Obstructive sleep apnea syndrome 09/30/2009 Osteoarthritis of knee 04/06/2023 Overactive bladder 04/06/2023 Panic disorder without agoraphobia ([facility]) 11/12/2009 Dyslipidemia ([facility]) 04/22/2010 Spondylosis without myelopathy 08/10/2010 Cavitary lesion of lung 08/10/2023 Hypoxia 01/04/2024 Obesity hypoventilation syndrome ([facility]) 01/04/2024 Elevated blood-pressure reading without diagnosis of hypertension 01/04/2024 Right carpal tunnel syndrome 01/04/2024 Type 2 diabetes mellitus with hyperglycemia, with long-term current use of insulin ([facility]) 02/12/2024 Chronic hypoxic respiratory failure ([facility]) 02/19/2024 Moderate persistent asthma without complication ([facility]) 02/19/2024 Resolved Ambulatory Problems Diagnosis Date Noted Acute kidney injury (DREW) with acute tubular necrosis (ATN) ([facility]) 09/30/2021 Acute pain of left shoulder 04/06/2023 Shoulder joint pain 04/06/2021 Convulsions in the 09/30/2009 Cubital tunnel syndrome on left 11/04/2022 Fecal incontinence 06/22/2016 High anion gap metabolic acidosis 09/30/2021 Hyperglycemia 03/01/2019 Mild intellectual disability ([facility]) 09/30/2009 Other chronic pain 04/06/2023 Pneumonia due to infectious organism 09/29/2021 Poorly controlled diabetes mellitus ([facility]) 08/10/2015 Normal gynecologic examination 06/09/2015 Missed period 04/06/2023 DKA, type 1, not at goal ([facility]) 09/27/2021 Type 2 diabetes mellitus ([facility]) 09/30/2009 Other chest pain 08/10/2023 Past Medical History: Diagnosis Date Ankle fracture Anxiety and depression ([facility]) At low risk for fall Bilateral leg edema Chest pain, central Chronic left shoulder pain Chronic pain Chronic respiratory failure ([facility]) Epilepsy ([facility]) GERD (gastroesophageal reflux disease) History of being hospitalized History of medical problems Hyperlipidemia ([facility]) Insomnia, persistent MDD (major depressive disorder), recurrent episode, mild (HCC) ([facility]) Morbid obesity with BMI of 40.0-44.9, adult ([facility]) Nocturnal hypoxemia Nonsmoker OAB (overactive bladder) Obesity JOSE M (obstructive sleep apnea) Postoperative urinary retention Primary osteoarthritis of left knee Seasonal allergies Type 2 diabetes mellitus with diabetic polyneuropathy, with long-term current use of insulin ([facility]) Type 2 diabetes mellitus without complication ([facility]) Vitamin D deficiency HISTORY PAST MEDICAL HISTORY SOCIAL HISTORY Past Medical History: Diagnosis Date Ankle fracture Anxiety and depression ([facility]) At low risk for fall Bilateral leg edema Chest pain, central Chronic left shoulder pain Chronic pain Chronic respiratory failure ([facility]) Dyslipidemia ([facility]) Epilepsy ([facility]) Childhood epilepsy JOHN (generalized anxiety disorder) ([facility]) Genital warts GERD (gastroesophageal reflux disease) History of being hospitalized pneumonia, diabetes, infection [10/29/21-11/05/21] History of medical problems mild mental retardation Hyperlipidemia ([facility]) Insomnia, persistent Irritable bowel syndrome with diarrhea MDD (major depressive disorder), recurrent episode, mild ([facility]) ([facility]) Migraine without aura and without status migrainosus, not intractable ([facility]) Morbid obesity with BMI of 40.0-44.9, adult ([facility]) Nocturnal hypoxemia Nonsmoker OAB (overactive bladder) Obesity JOSE M (obstructive sleep apnea) Postoperative urinary retention Primary osteoarthritis of left knee Seasonal allergies Type 2 diabetes mellitus with diabetic polyneuropathy, with long-term current use of insulin ([facility]) Type 2 diabetes mellitus with hyperglycemia, with long-term current use of insulin ([facility]) Type 2 diabetes mellitus without complication ([facility]) Vitamin D deficiency Social History Tobacco Use [...] 12/29/2017 Diagnostic laparoscopy LAPAROTOMY OVARIAN CYSTECTOMY 03/31/2023 [place] ARTHROCENTESIS ASPIR&/INJ MAJOR JT/BURSA W/O US Right [...] nursing note reviewed. Exam conducted with a drupal architect present. Vitals: Estimated body mass index is [...] Feliz Benz DO documented in this encounter [facility] 04-24-2024 Telephone encounter Note Once she is cleared we can reschedule her surgery, please let patient know thanks [facility] Work Phone: 04-24-2024 Telephone encounter Note Patient called back asking if she should reschedule surgery at this time or wait until after cardiac clearance, please advise. Call back # [phone] [facility] 04-24-2024 Telephone encounter Note Notified [facility] and cx sx [facility] 04-22-2024 Telephone encounter Note Patient would like to cancel her surgery. Appointment for cardiac namrata isn't till May 14. [facility] 04-18-2024 Telephone encounter Note LM with Dr Dalton office that patient needs Echo and clearance from PCP Also spoke with patient to contact PCP to follow up for clearance [facility] 04-18-2024 Telephone encounter Note [facility] regarding patient carissa santos 1980. she said looked at her Pat and said she needs to have an echo, that she needs evaluation for pulmonary hypertension. Please advise [facility] 04-15-2024 Miscellaneous Notes Images from the original note were not included. Last OV 07/13/2023 Message to scheduling for appt BMP 12/23/2023 documented in this encounter [facility] 04-15-2024 Telephone encounter Note Images from the original note were not included. Last OV 07/13/2023 Message to scheduling for appt BMP 12/23/2023 [facility] 04-10-2024 Miscellaneous Notes 04/09 Order received Scheduled PSG at [facility] on 08/06/24 Scheduled PAP at [facility] on 11/20/24 Confirmation mailed Comp Order and 04/09/24 Benito Germain Epic Notes With TCO2 Start without oxygen, uses 2-3L/min with exertion and sleep If patient has hypoxemia awake prior to sleep please add oxygen, add per protocol in sleep otherwise documented in this encounter [facility] 04-10-2024 Telephone encounter Note 04/09 Order received Scheduled PSG at [facility] on 08/06/24 Scheduled PAP at [facility] on 11/20/24 Confirmation mailed Comp Order and 04/09/24 Benito Germain Epic Notes With TCO2 Start without oxygen, uses 2-3L/min with exertion and sleep If patient has hypoxemia awake prior to sleep please add oxygen, add per protocol in sleep otherwise [facility] 04-09-2024 History of Present illness Narrative CHIEF COMPLAINT: Carissa Santos is a 43 y.o. female who presents to [facility] in follow-up for suspected [...] prescribed this for sleep in the past Romance Sleepiness Scale: Sitting and Reading: Never Watching [...] hyperglycemia, with long-term current use of insulin ([facility]) Mild developmental delay Obstructive sleep apnea syndrome Severe obesity (BMI >= 40) ([facility]) Hyperlipidemia associated with type 2 diabetes mellitus ([facility]) Abnormal ECG during exercise stress test Mediastinal lymphadenopathy Acute cystitis without hematuria Pulmonary nodule Dyspnea on exertion Moderate persistent asthma without complication Chronic hypoxic respiratory failure ([facility]) Past Medical History: Diagnosis Date Anxiety Deep vein thrombosis ([facility]) Dental disease no teeth Depression Diabetes mellitus type I ([facility]) Elevated cholesterol GERD (gastroesophageal reflux disease) Hyperlipidemia Hypertension Lymphadenopathy 2023 MR (mental retardation) Obesity Panic disorder Visual impairment Past Surgical History: Procedure Laterality Date CHOLECYSTECTOMY COLONOSCOPY 2021 ENDOBRONCHIAL ULTRASOUND BRONCHOSCOPY N/A 11/22/2023 Performed by Libby Finley MD at [facility] TONSILLECTOMY TUBAL LIGATION Bilateral 2018 ALLERGIES: [...] Units total) by mouth in the morning. ucnsplnjues-tuvvbquiz-niybuppj (TRELEGY ELLIPTA) 200-62.5-25 mcg blister with device [...] apnea), suspected 2. Chronic hypoxic respiratory failure (CMS-HCC) 3. Severe obesity (BMI >= 40) (CMS-HCC) Carissa Santos is a 43 y.o. female [...] acknowledged understanding and agreement. SMITHA GERMAIN MD [facility] [address] [place] [id number] documented in this encounter [facility] 04-09-2024 Instructions Smitha Germain MD - 04/09/2024 11:00 AM EDT Thank you for visiting [facility] office. The process of completing a sleep study has many steps. We have detailed these steps below to help keep you informed of what to expect. The scheduling, prior authorization, and registration process: Please call option #1 to schedule your sleep study. Your sleep medicine specialist places an electronic order which is sent to [facility] sleep lab. This order is then reviewed by the lab staff and a request for approval is sent to your insurance company. If you would like to know the estimated cost of your study, you can call [phone] for general pricing information (note that you will need the following procedure codes allow them to estimate the cost: Polysomnogram (PSG), in lab diagnostic study without CPAP = 12385 PAP titration, in lab with CPAP for treatment = [id number] Every study request is reviewed in our sleep prior authorization department. Some sleep studies require prior authorization and some do not (only require that the provider document the need for the study). Some sleep study orders may need to be changed based on insurance coverage. (ie in lab to home study). Please confirm with your insurance that all [facility] sleep labs are in network with your [...] your sleep study is sent to a wafer fabrication technician to be reviewed and scored. The report from the wafer fabrication technician is then sent to the sleep medicine physician and within 7-10 days the study will be formally interpreted. Once the study is completed, there will be contact from our office (through [employer], Inchart, phone, or a letter) about next steps (ie treatment for sleep apnea, office appointment, cpap machine orders). If a cpap machine has been ordered and you do not hear from the equipment company within 30 days of your study, please call our office [phone]. FYI: Some insurance companies have strict guidelines regarding the timeline for this process. If sleep studies are not completed within 6-12 months of the office visit insurance may require another office visit. Also if cpap set up is not done within a year of the initial sleep study insurance may require another sleep study. Thank you, [facility] Department REQUIREMENTS FOR PAP (CPAP/BPAP/ASV) [...] your insurance company. documented in this encounter [facility] 03-21-2024 History of Present illness Narrative Patient called nurse line and requested Trelegy script to be sent to [facility]. Script sent. documented in this encounter [facility] 03-18-2024 History of Present illness Narrative [facility] Progress Note Patient - [...] or calculate RVSP. Will reach out to [facility] to determine what portable tanks she has, [...] Meds Medications Reviewed. Dr. Lindsay Arrieta DO. [facility] Office: [phone] documented in this encounter [facility] 03-12-2024 Miscellaneous Notes [facility] one hour past appt time and Dr GARLAND already gone for the day office canceled pt arrival and marked patient as a NO SHOW per PN. documented in this encounter [facility] 03-12-2024 Telephone encounter Note Per patient [facility] to [facility] one hour past appt time and Dr GARLAND already gone for the day office canceled pt arrival and marked patient as a NO SHOW per PN. [facility] 03-12-2024 Miscellaneous Notes Patient signed on at 258 pm for 2 pm mychart visit. Spoke with patient. Will need to reschedule appt. Is there a day she can be added on? Can do video visit on Monday at 3pm please. Patient agreeable and scheduled documented in this encounter [facility] 03-12-2024 Telephone encounter Note Patient signed on at 258 pm for 2 pm mychart visit. Spoke with patient. Will need to reschedule appt. Is there a day she can be added on? [facility] Work Phone: 03-12-2024 Telephone encounter Note Can do video visit on Monday at 3pm please. [facility] 03-12-2024 Telephone encounter Note Patient agreeable and scheduled [facility] 02-26-2024 Miscellaneous Notes Gosia called office to confirm patient appt date and times. Office confirmed and gave Gosia central scheduling number for sleep study purposes. documented in this encounter [facility] 02-26-2024 Telephone encounter Note Gosia called office to confirm patient appt date and times. Office confirmed and gave Gosia central scheduling number for sleep study purposes. [facility] 02-08-2024 History of Present illness Narrative [facility] Progress Note Patient - [...] in 3 months or earlier if needed SUBJECTIVE Carissa presents with her support person for follow [...] function testing. She was recently hospitalized at [facility] in December. She just checked her oxygen [...] No tremors Meds Medications Reviewed. Lab Results [facility] [address] [place] [address] Cytology Consultation Patient Name:CARISSA SANTOS:1980 (Age: 43)Gender:FTaken:11/22/2023eporte d:11/23/2023 17:47Physician(s):Libby Finley MD ([phone])Copy To: Rec. #:[id number]: #[id number] Final Cytologic Diagnosis 1. 4R node, endobronchial [...] NECK: Normal physiologic activity in the imaged REGIONAL AGRONOMIST. Contrast evaluation of the face/brain due to [...] findings/limitations as above Dr. Lindsay Arrieta DO. [facility] Office: [phone] documented in this encounter [facility] 01-05-2024 Miscellaneous Notes 01/05/2024- this patient called and left a vm, I called back and left a vm. mary documented in this encounter [facility] 01-05-2024 Telephone encounter Note 01/05/2024- this patient called and left a vm, I called back and left a vm. mary [facility] 12-23-2023 Nurse Note AVS reviewed with the patient and signed. All questions answered and concerns addressed. Meds reviewed that need to be picked up from the pharmacy and administration times. The need to make a follow up appt within one week with PCP and go to scheduled pulmonology reviewed. All belongings returned. IV removed and tele D/C. Waiting for Patient's ride home. [facility] 12-23-2023 Nurse Note AVS reviewed with the [...] Patient's ride home. documented in this encounter [facility] 12-23-2023 Plan of care note Problem: Safety [...] at the bedside 7. Instruct patient/ patient inbound customer service 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 about use of safety devices 8. Include patient/ patient inbound customer service 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 in decisions related to safety Outcome: Progressing Note: Evaluation of progress towards goal: Pt is free of injury, safe environment provided and maintained, medication administered as ordered, hand hygiene completed. [facility] 12-23-2023 Miscellaneous Notes Problem: Safety Goal: [...] at the bedside 7. Instruct patient/ patient inbound customer service 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 about use of safety devices 8. Include patient/ patient inbound customer service 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 in decisions related to safety Outcome: Progressing Note: Evaluation of progress towards goal: Pt is free of injury, safe environment provided and maintained, medication administered as ordered, hand hygiene completed. Problem: Pain Goal: Patient goal is pain score less than 4, able to rest, and participant in treatment plan as appropriate Description: INTERVENTIONS: 1. Encourage patient or legal inbound customer service 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 to report early pain and ask [...] per policy 9. Teach patient or legal inbound customer service 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 interventions for comforting Outcome: Progressing Note: [...] at the bedside 7. Instruct patient/ patient inbound customer service 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 about use of safety devices 8. Include patient/ patient inbound customer service 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 in decisions related to safety Outcome: [...] hygiene technique 7. Identify and instruct patient/patient inbound customer service 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 in use of appropriate isolation precautions for identified infection/symptoms 8. Provide and discuss with patient/patient inbound customer service 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 on educational MDRO sheet 9. Encourage and monitor nutritional status daily and consult rod cup filler if indicated 10. Implement neutropenic guidelines as needed 11. Review exposure to history of communicable disease and recent travel history on admission 12. Encourage annual influenza vaccine 13. Encourage pneumonia vaccine Outcome: Progressing Note: Evaluation of progress towards goal: Problem: Knowledge Deficit Goal: Patient/patient inbound customer service 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 demonstrates understanding of disease process, treatment [...] with pt who confirmed this. She asked content writer to try another DME. Staff updated on oxygen barrier. Referral sent to [facility] and also called: [phone] and spoke to Talisha who was able [...] Home Durable Medical Equipment Name: [employer] [place] Home Durable Medical Equipment Home Durable Medical [...] Description: INTERVENTIONS: 1. Encourage patient or legal inbound customer service 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 to report early pain and ask [...] per policy 9. Teach patient or legal inbound customer service 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 interventions for comforting Outcome: Progressing Note: [...] at the bedside 7. Instruct patient/ patient inbound customer service 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 about use of safety devices 8. Include patient/ patient inbound customer service 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 in decisions related to safety Outcome: [...] at the bedside 7. Instruct patient/ patient inbound customer service 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 about use of safety devices 8. Include patient/ patient inbound customer service 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 in decisions related to safety Outcome: [...] hygiene technique 7. Identify and instruct patient/patient inbound customer service 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 in use of appropriate isolation precautions for identified infection/symptoms 8. Provide and discuss with patient/patient inbound customer service 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 on educational MDRO sheet 9. Encourage and monitor nutritional status daily and consult rod cup filler if indicated 10. Implement neutropenic guidelines as [...] on disability, unemployed and supports her financially. Gyro Mechanic reviewed goal for safe dc, discussed community [...] difficulty affording home medications; preferred pharmacy is [facility] in [place]. Pt prefers to make own appt, Informed content writer will f/u tomorrow to assist with finalizing home oxygen referral. She did not have any other questions or concerns at this time. 12/21/23 1656 Discharge Disposition Discharge Disposition Home Durable Medical Equipment (Qualified for oxygen with activity: Requests referral sent to [facility] She has had oxygen in the past from [facility] that is now [facility] County Information County of Residence [place] Patient Information Primary Caregiver Self Support System Immediate family Stressors Type of stressor (Denies) Income Information Income Information Unemployed ( provides income. She is not on disability) Referral To Community Resources Denies needs Discharge Planning Living Arrangements Spouse/significant other Support Systems Spouse/significant other;Parent;Family members;Friends;storage manager/rn social services Assistance Needed Spoke to pt who agrees [...] contact info and started to call when content writer left room. Type of Residence Private [...] home oxygen) Home Durable Medical Equipment Name: [employer] Home Durable Medical Equipment Home Durable Medical [...] tomorrow. DISCHARGE PLANNING NOTE Referral sent to [facility], and [facility] [place] ([place]- P# ; F# ) ([place]- P# ; F# ) ([place]- P# ; F# ) ([place]- P# ; F# ) ([place]- P# ; F# ) ([place]- P# ; F# ) ([place]- P# [phone] ; F# [phone]) Problem: Knowledge Deficit Goal: Patient/patient inbound customer service 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 demonstrates understanding of disease process, treatment [...] at the bedside 7. Instruct patient/ patient inbound customer service 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 about use of safety devices 8. Include patient/ patient inbound customer service 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 in decisions related to safety Outcome: Progressing Note: Evaluation of progress towards goal: Pt remains free from falls or accidental injury during stay. Fall prevention measures in place. Hourly rounding per RN and NA maintained. Problem: Knowledge Deficit Goal: Patient/patient inbound customer service 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 demonstrates understanding of disease process, treatment [...] patient in care. [facility] Plan of care note Problem: Pain Goal: Patient goal is pain score less than 4, able to rest, and participant in treatment plan as appropriate Description: INTERVENTIONS: 1. Encourage patient or legal inbound customer service 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 to report early pain and ask [...] per policy 9. Teach patient or legal inbound customer service 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 interventions for comforting Outcome: Progressing Note: [...] at the bedside 7. Instruct patient/ patient inbound customer service 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 about use of safety devices 8. Include patient/ patient inbound customer service 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 in decisions related to safety Outcome: [...] hygiene technique 7. Identify and instruct patient/patient inbound customer service 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 in use of appropriate isolation precautions for identified infection/symptoms 8. Provide and discuss with patient/patient inbound customer service 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 on educational MDRO sheet 9. Encourage and monitor nutritional status daily and consult rod cup filler if indicated 10. Implement neutropenic guidelines as needed 11. Review exposure to history of communicable disease and recent travel history on admission 12. Encourage annual influenza vaccine 13. Encourage pneumonia vaccine Outcome: Progressing Note: Evaluation of progress towards goal: Problem: Knowledge Deficit Goal: Patient/patient inbound customer service 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 demonstrates understanding of disease process, treatment [...] together with patient to achieve discharge goals. [facility] Hospital Discharge instructions DOC Taylor - 12/22/2023 6:09 PM EDT Please call [facility] for update on oxygen. [phone]. Unable to arrange with [facility] [...] Care Everywhere.Urinary Tract Infection Discharge Instructions, Adult (Vietnamese)Type 2 Diabetes Discharge Instructions (Vietnamese)Sleep Apnea Discharge Instructions (Vietnamese)documented in this encounter [facility] 12-22-2023 History of Present illness Narrative 12/22/23 [...] Exercise/Ambulation 94 % documented in this encounter [facility] 12-22-2023 Progress note Formatting of t his [...] - Stacey Smith RN 12/22/23 11:[address] [facility] 12-22-2023 Progress note Formatting of t his [...] with pt who confirmed this. She asked content writer to try another DME. Staff updated on oxygen barrier. Referral sent to [facility] [place] and also called: [phone] and spoke to Talisha who was able to confirm referral was received. It could take an hour to process. Sticky note updated for staff to call with update. DOC Taylor, 12/22/2023, 3:23 PM Care Navigation will continue to follow. Services Requested: Services Requested Discharge Disposition: Home with self care, Home Durable Medical Equipment (Will need home oxygen) Home Durable Medical Equipment Name: [facility] Home Durable Medical Equipment Home Durable Medical [...] oxygen today. DOC Taylor, 12/22/2023, 10:51 AM [facility] 12-22-2023 Hospital course Narrative Images from the original note were not included. [facility] PHYSICIANS [facility] INTERNAL MEDICINE Hospital Medicine Discharge Summary Patient: Carissa Santos Date of : 1980 Room: 215/01 Encounter date: 12/22/23 DATE OF ADMISSION: 12/20/2023 DATE OF DISCHARGE:12/22/2023 DISCHARGE DIAGNOSES Principal Problem: Type 2 diabetes mellitus with hyperglycemia, with long-term current use of insulin ([facility]) Active Problems: Hyperglycemia Obstructive sleep apnea syndrome Severe obesity (BMI >= 40) ([facility]) Hyperlipidemia associated with type 2 diabetes mellitus ([facility]) Acute cystitis without hematuria CONSULTANTS None PCP: [...] and patient oxygen saturation increased to 94%. Apsa-tl-pygt evaluation was completed today. Home O2 evaluation [...] Your Medications These medications were sent to [id number] - [place], [place] - [address] [facility] [address] [facility] [id number] albuterol 90 mcg/actuation inhaler CEPHalexin 500 mg capsule >30 minutes were spent on discharging this patient. DUSTIN Garcia, 12/22/2023 10:44 AM [facility] Hospitalists 7AM-7PM: Message rounding MARY JO in [employer] or page through [employer]. 7PM-7AM: Page on-call MARY JO through our [...] EZEQUIEL GRAFF MD documented in this encounter [facility] 12-22-2023 Plan of care note Problem: Pain Goal: Patient goal is pain score less than 4, able to rest, and participant in treatment plan as appropriate Description: INTERVENTIONS: 1. Encourage patient or legal inbound customer service 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 to report early pain and ask [...] per policy 9. Teach patient or legal inbound customer service 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 interventions for comforting Outcome: Progressing Note: [...] at the bedside 7. Instruct patient/ patient inbound customer service 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 about use of safety devices 8. Include patient/ patient inbound customer service 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 in decisions related to safety Outcome: [...] monitor and treat blood sugar as needed [facility] 12-22-2023 Plan of care note Problem: Safety [...] at the bedside 7. Instruct patient/ patient inbound customer service 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 about use of safety devices 8. Include patient/ patient inbound customer service 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 in decisions related to safety Outcome: [...] hygiene technique 7. Identify and instruct patient/patient inbound customer service 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 in use of appropriate isolation precautions for identified infection/symptoms 8. Provide and discuss with patient/patient inbound customer service 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 on educational MDRO sheet 9. Encourage and monitor nutritional status daily and consult rod cup filler if indicated 10. Implement neutropenic guidelines as [...] levels around 300mg/dl, insulin given PRN given. [facility] 12-21-2023 Progress note Formatting of t [...] on disability, unemployed and supports her financially. Gyro Mechanic reviewed goal for safe dc, discussed community [...] difficulty affording home medications; preferred pharmacy is [facility] in [place]. Pt prefers to make own appt, Informed content writer will f/u tomorrow to assist with [...] Service Co.) County Information County of Residence [place] Patient Information Primary Caregiver Self Support System Immediate family Stressors Type of stressor (Denies) Income Information Income Information Unemployed ( provides income. She is not on disability) Referral To Community Resources Denies needs Discharge Planning Living Arrangements Spouse/significant other Support Systems Spouse/significant other;Parent;Family members;Friends;storage manager/rn social services Assistance Needed Spoke to pt who agrees [...] contact info and started to call when content writer left room. Type of Residence Private [...] home oxygen) Home Durable Medical Equipment Name: [employer] Home Durable Medical Equipment Home Durable Medical [...] goal: In progress: Home with oxygen tomorrow. [employer] 12-21-2023 Progress note Formatting of t his note might be different from the original. DISCHARGE PLANNING NOTE Referral sent to [facility], and [facility] [place] ([place]- P# ; F# ) ([place]- P# ; F# ) ([place]- P# ; F# ) ([place]- P# ; F# ) ([place]- P# ; F# ) ([place]- P# ; F# ) ([place]- P# [phone] ; F# [phone]) [facility] 12-21-2023 Plan of care note Problem: Knowledge Deficit Goal: Patient/patient inbound customer service 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 demonstrates understanding of disease process, treatment [...] and is awaiting that to be arranged. [employer] 12-21-2023 History and physical note Images from the original note were not included. [facility] PH[facility]ICIANS [facility] INTERNAL MEDICINE Hospital Medicine History & Physical Patient: Carissa Santos Date of : 1980 Room: [facility] PCP: DIAZ DALTON MD Admission date: 12/20/2023 [...] medical history of Anxiety, Deep vein thrombosis ([facility]), Dental disease, Depression, Diabetes mellitus type I ([facility]), Elevated cholesterol, GERD (gastroesophageal reflux [...] hyperglycemia, with long-term current use of insulin ([facility]) Active Problems: Hyperglycemia Obstructive sleep apnea syndrome Severe obesity (BMI >= 40) ([facility]) Hyperlipidemia associated with type 2 diabetes mellitus ([facility]) Acute cystitis without hematuria ASSESSMENT & PLAN [...] Discharge home in 1-2 days. Eddie Zurita, FINA-LUCIANO, 12/21/2023 9:52 AM [facility] Hospitalists 7AM-7PM: Message rounding MARY JO in [employer] or page through [employer]. 7PM-7AM: Page on-call MARY JO through our [employer] service, . Physician Attestation: I have reviewed [...] above, unless otherwise noted. EZEQUIEL GRAFF MD [facility] 12-21-2023 History and physical note Images from the original note were not included. [facility] PHYSICIANS [facility] INTERNAL MEDIC[facility] Hospital Medicine History & Physical Patient: Carissa Santos Date of : 1980 Room: 215/ PCP: DIAZ DALTON MD Admission date: 12/20/2023 [...] medical history of Anxiety, Deep vein thrombosis ([facility]), Dental disease, Depression, Diabetes mellitus type I ([facility]), Elevated cholesterol, GERD (gastroesophageal reflux disease), Hyperlipidemia, Hypertension, Lymphadenopathy (2023), MR (mental retardation), Obesity, Panic disorder, and Visual impairment. Past Surgical History: Patient has a past surgical history that includes Cholecystectomy; Tonsillectomy; Tubal ligation (Bilateral, 2018); Colonoscopy (2021); and Flexible bronchoscopy w/ upper [...] hyperglycemia, with long-term current use of insulin ([facility]) Active Problems: Hyperglycemia Obstructive sleep apnea syndrome Severe obesity (BMI >= 40) ([facility]) Hyperlipidemia associated with type 2 diabetes mellitus ([facility]) Acute cystitis without hematuria ASSESSMENT & PLAN [...] DC planning: Discharge home in 1-2 days. DUSTIN Garcia, 12/21/2023 9:52 AM [facility] Hospitalists 7AM-7PM: Message rounding MARY JO in [employer] or page through [employer]. 7PM-7AM: Page on-call MARY JO through our [...] EZEQUIEL GRAFF MD documented in this encounter [facility] 12-21-2023 Plan of care note Problem: Safety [...] at the bedside 7. Instruct patient/ patient inbound customer service 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 about use of safety devices 8. Include patient/ patient inbound customer service 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 in decisions related to safety Outcome: Progressing Note: Evaluation of progress towards goal: Pt remains free from falls or accidental injury during stay. Fall prevention measures in place. Hourly rounding per RN and NA maintained. Problem: Knowledge Deficit Goal: Patient/patient inbound customer service 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 demonstrates understanding of disease process, treatment [...] for appropiateness to involve patient in care. [facility] 12-20-2023 Physician Emergency department Note Images from [...] 11/22/2023 Performed by Libby Finley MD at [facility] TONSILLECTOMY TUBAL LIGATION Bilateral 2018 Travel [...] (%) 12/20/23 1557 12/20/23 1554 -- 12/20/23 155 -- Oral Pulse Ox Right arm Vitals: [...] positive for nitrites also spilling glucose. [RK] 193 Repeat glucose is still >500. I added [...] Hypoxia MDM Medical Decision Making ----- I, Arturo Truex (scribe), documented on behalf of Dr. [...] and management services were performed by the WOOL AND PELT GRADER/PA-C under my supervision/collaboration with my participation. I have reviewed all pertinent clinical information, including history, physical exam and plan. Provider Statement: By electronically signing this emergency patient record, the Emergency Physician/WOOL AND PELT GRADER/PA-C attests that all entries made into the electronic medical record by the scribe prior to the Physician/WOOL AND PELT GRADER/PA-C signature reflect an accurate accounting of the evaluation and care rendered by that Emergency Physician/WOOL AND PELT GRADER/PA-C. The Emergency Physician/WOOL AND PELT GRADER/PA-C assumes full responsibility for those entries. DUSTIN Mcneill 12/20/23 1623 Anasalvatore Truex 12/20/23 1916 Anamya Truex 12/20/23 1923 DUSTIN Mcneill 12/20/[address] [facility] 12-20-2023 Emergency department Note Images from the [...] 11/22/2023 Performed by Libby Finley MD at [facility] TONSILLECTOMY TUBAL LIGATION Bilateral 2018 Travel [...] 1044 Hyperglycemia Acute cystitis without hematuria Hypoxia [facility] Medical Decision Making ----- I, Arturo Truejohnny (scribe), documented on behalf of Dr. Kent. [...] and management services were performed by the WOOL AND PELT GRADER/PA-C under my supervision/collaboration with my participation. I have reviewed all pertinent clinical information, including history, physical exam and plan. Provider Statement: By electronically signing this emergency patient record, the Emergency Physician/WOOL AND PELT GRADER/PA-C attests that all entries made into the electronic medical record by the scribe prior to the Physician/WOOL AND PELT GRADER/PA-C signature reflect an accurate accounting of the evaluation and care rendered by that Emergency Physician/WOOL AND PELT GRADER/PA-C. The Emergency Physician/WOOL AND PELT GRADER/PA-C assumes full responsibility for those entries. DUSTIN Mcneill 12/20/23 1623 Anamya Truex 12/20/23 1916 Anamya Truex 12/20/23 1923 DUSTIN Mcneill 12/20/23 1938 Pt been feeling sob for a week. Did not contact pcp documented in this encounter [facility] 12-20-2023 Emergency department Triage note Pt been feeling sob for a week. Did not contact pcp [facility] 11-28-2023 Miscellaneous Notes The results of the EBUS FNA was discussed with the patient. The FNA from R4 lymph node that is PET avid on the PET scan showed normal lymphocytes with no malignant cells. Flow cytometry demonstrates a mixed population of phenotypically unremarkable T-cells and polyclonal B-cells. Patient questions were answered. documented in this encounter [facility] 11-28-2023 Telephone encounter Note The results of the EBUS FNA was discussed with the patient. The FNA from R4 lymph node that is PET avid on the PET scan showed normal lymphocytes with no malignant cells. Flow cytometry demonstrates a mixed population of phenotypically unremarkable T-cells and polyclonal B-cells. Patient questions were answered. [employer] Work Phone: 11-23-2023 Miscellaneous Notes LM for patient to call our office back. Once she is cleared we can reschedule her surgery, please let patient know thanks Patient called back asking if she should reschedule surgery at this time or wait until after cardiac clearance, please advise. Call back # [phone] [facility]ified [facility] and cx sx Patient would like to cancel her surgery. Appointment for cardiac narmata isn't till May 14. LM with Dr Dalton office that patient needs Echo and clearance from PCP Also spoke with patient to contact PCP to follow up for clearance [facility] pre [facility] called regarding patient carissa santos 1980. she said looked at her Pat and said she needs to have an echo, that she needs evaluation for pulmonary hypertension. Please advise documented in this encounter [facility] 11-15-2023 Instructions Formatting of th is note might be different from the original. Your surgery/procedure is scheduled at [facility] on 11/22/23 at 1:30 pm Arrival Time 11:[address] [facility] Address: [address] [place] [address] in [address] Parking lot located on [facility]. Report to the Entrance B. Check in at the information desk the surgery. The waiting room located on the second floor. If you have any questions prior to surgery, please call Pre-Admission Clinic at [phone] between 7:30 am and 4:30 pm Monday through Monday. If you have questions the morning of surgery, please call the Pre-op Department at [phone]. Notify your SURGEON if you develop any [...] would like to schedule therapy at a [facility] Re[facility] facility, please call [phone] ([phone]). Do not use lotions, creams, powders, perfume, make up, cologne or after-shaves day of surgery. Remove ALL jewelry including wedding rings, body piercings,hair extensions that contain metal, nail mozambican, make-up, and contact lens. You may brush [...] RIGHTS AND RESPONSIBILITIES As a patient at [facility], you have the right to: Receive medical care and be informed of who is taking care of you Be treated with dignity and respect Have a family member/inbound customer service 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 of choice and your physician notified of your admission Receive information and actively participate in decisions about your care and treatment Refuse care, treatment and services Decide who may provide your support and speak for you Access mormonism and spiritual services Participate in ethical issues [...] of hospital charges and payment methods Patient/patient inbound customer service 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 responsibilities are to: Provide information about health status to facilitate care, treatment and services Follow the treatment, plan, keep appointments and speak up when you do not understand the plan Respect the rights of other patients and healthcare personnel Follow organizational rules and regulations that support quality care and a safe environment Fulfill financial obligations as promptly as possible [facility] 11-15-2023 Miscellaneous Notes Your surgery/procedure is scheduled at [facility] on 11/22/23 at 1:30 pm Arrival Time 11:[address] [facility] Address: [address] [place] [address] in P1 Parking lot located on [facility]. Report to the Entrance B. Check in at the information desk the surgery. The waiting room located on the second floor. If you have any questions prior to surgery, please call Pre-Admission Clinic at [phone] between 7:30 am and 4:30 pm Monday through Monday. If you have questions the morning of surgery, please call the Pre-op Department at [phone]. Notify your SURGEON if you develop any [...] would like to schedule therapy at a [facility] Re[facility] facility, please call [phone] ([phone]). Do not use lotions, creams, powders, perfume, make up, cologne or after-shaves day of surgery. Remove ALL jewelry including wedding rings, body piercings,hair extensions that contain metal, nail mozambican, make-up, and contact lens. You may brush [...] RIGHTS AND RESPONSIBILITIES As a patient at [facility], you have the right to: Receive medical care and be informed of who is taking care of you Be treated with dignity and respect Have a family member/inbound customer service 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 of choice and your physician notified of your admission Receive information and actively participate in decisions about your care and treatment Refuse care, treatment and services Decide who may provide your support and speak for you Access mormonism and spiritual services Participate in ethical issues [...] of hospital charges and payment methods Patient/patient inbound customer service 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 responsibilities are to: Provide information [...] promptly as possible documented in this encounter [facility] 11-10-2023 History of Present illness Narrative Images from the original note were not included. [facility]LEEP [facility]ICINE [address] [id number] Subjective: Chief Complaint Mediastinal lymphadenopathy [...] at rest. No wheezing She worked in [employer] in the past with no significant exposure to chemicals. No exposure to asbestos. She does not work since 3-4 years. She lives with her in apartment in [place] Review of Systems Constitutional: Negative. Negative for [...] Medical History: Diagnosis Date Deep vein thrombosis ([facility]) Diabetes mellitus type I ([facility]) Elevated cholesterol GERD (gastroesophageal reflux [...] this note were generated using voice recognition M*Modal dictation software. Although every effort was made to ensure the accuracy of this automated diesel engine pipe fitter, some errors in diesel engine pipe fitter may have occurred. documented in this encounter [facility] 11-09-2023 History of Present illness Narrative Pulm referral for EBUS for pet positive mediastinal lymph node documented in this encounter [facility] 11-09-2023 History of Present illness Narrative Images [...] Medical History: Diagnosis Date Deep vein thrombosis ([facility]) Diabetes mellitus type I ([facility]) GERD (gastroesophageal reflux disease) Hyperlipidemia MR (mental [...] min Stress: No Stress Concern Present (06/05/2023) [employer] - Occupational Stress Questionnaire Feeling of Stress : Only a little Social Connections: Moderately Isolated (06/05/2023) Social Connection and Isolation Panel [NHANES] Frequency of Communication with Friends and Family: More than three times a week Frequency of Social Gatherings with Friends and Family: More than three times a week Attends Jain Services: Never Active Member of Clubs or [...] in her care documented in this encounter [facility] 10-24-2023 History of Present illness Narrative Lvm at the referrring office to follow up if patient had pet/ct scan completed documented in this encounter [facility] 10-10-2023 History of Present illness Narrative Contacted the referring office to see if patient got PET/CT scan completed. Referring office is still waiting for testing to be completed documented in this encounter [facility] 10-10-2023 History of Present illness Narrative Reason for Appointment: Patient ID: Carissa Santos is a 43 y.o. female who presents for Amenorrhea Patient presents today via telephone call for a telehealth appointment. Patients Phone #: [phone] (mobile) Current Medications: has a current medication [...] rhinitis due to allergen 10/01/2009 Anxiety state ([facility]) 10/01/2009 Carpal tunnel syndrome of left wrist 04/06/2023 Contracture, unspecified ankle 04/06/2023 Edema 04/06/2023 Equinus deformity of left foot 04/06/2023 Gastroesophageal reflux disease 04/06/2023 Genital warts 04/06/2023 Hot flashes due to menopause 04/06/2023 Type 2 diabetes mellitus with microalbuminuria, with long-term current use of insulin ([facility]) 04/06/2023 Internal derangement of left shoulder 04/06/2023 Irritable bowel syndrome with diarrhea 04/06/2023 Mild developmental delay 09/29/2021 Migraine without aura, not refractory ([facility]) 04/06/2023 Mild episode of recurrent major depressive disorder (HCC) ([facility]) 04/06/2023 Morbid obesity ([facility]) 11/21/2022 Type 2 diabetes mellitus with polyneuropathy ([facility]) 06/10/2021 Obstructive sleep apnea syndrome 09/30/2009 Osteoarthritis of knee 04/06/2023 Overactive bladder 04/06/2023 Panic disorder without agoraphobia ([facility]) 11/12/2009 Dyslipidemia ([facility]) 04/22/2010 Spondylosis without myelopathy 08/10/2010 Cavitary lesion of lung 08/10/2023 Other chest pain 08/10/2023 Resolved Ambulatory Problems Diagnosis Date Noted Acute kidney injury (DREW) with acute tubular necrosis (ATN) ([facility]) 09/30/2021 Acute pain of left shoulder 04/06/2023 Shoulder joint pain 04/06/2021 Convulsions in the 09/30/2009 Cubital tunnel syndrome on left 11/04/2022 Fecal incontinence 06/22/2016 High anion gap metabolic acidosis 09/30/2021 Hyperglycemia 03/01/2019 Mild intellectual disability ([facility]) 09/30/2009 Other chronic pain 04/06/2023 Pneumonia due to infectious organism 09/29/2021 Poorly controlled diabetes mellitus ([facility]) 08/10/2015 Normal gynecologic examination 06/09/2015 Missed period 04/06/2023 DKA, type 1, not at goal ([facility]) 09/27/2021 Type 2 diabetes mellitus ([facility]) 09/30/2009 Past Medical History: Diagnosis Date Ankle fracture Anxiety and depression ([facility]) At low risk for fall Bilateral leg edema Chest pain, central Chronic left shoulder pain Chronic pain Epilepsy ([facility]) JOHN (generalized anxiety disorder) ([facility]) GERD (gastroesophageal reflux disease) History of being hospitalized History of medical problems Hyperlipidemia ([facility]) Insomnia, persistent MDD (major depressive disorder), recurrent episode, mild (HCC) ([facility]) Migraine without aura and without status migrainosus, not intractable ([facility]) Morbid obesity with BMI of 40.0-44.9, adult ([facility]) Nocturnal hypoxemia Nonsmoker OAB (overactive bladder) Obesity JOSE M (obstructive sleep apnea) Postoperative urinary retention Primary osteoarthritis of left knee Seasonal allergies Type 2 diabetes mellitus with diabetic polyneuropathy, with long-term current use of insulin ([facility]) Type 2 diabetes mellitus with hyperglycemia, with long-term current use of insulin ([facility]) Type 2 diabetes mellitus without complication ([facility]) Vitamin D deficiency Family History [...] 12/29/2017 Diagnostic laparoscopy LAPAROTOMY OVARIAN CYSTECTOMY 03/31/2023 [place] ARTHROCENTESIS ASPIR&/INJ MAJOR JT/BURSA W/O US Right [...] labs and ultrasound ordered and faxed to [place] for pt to have obtained. Will notify when results come in. Pt voiced understanding. Documented by Dayanara Wheatley LPN on behalf of: Feliz Benz DO documented in this encounter [facility] 10-05-2023 History of Present illness Narrative HISTORY [...] develop for requiring urgent evaluation. Barry Snowden C CONSULTANT-TAX EXAMINING TECHNICIAN documented in this encounter [facility] 10-05-2023 Note [id number] Note [id number]23 Note [facility] SURGERY Clinical Discharge Summary PERSON INFORMATION Name CARISSA SANTOS Age 43 Years 1980 Sex FEMALE Language Vietnamese PCP DIAZ DALTON Marital Status Phone Med Service Ambulatory Surgery Acct# Arrival 09/25/2023 06:07:34 Visit Reason Surgery- Left carpal tunnel release Acuity LOS 018 22:07 Address: [address] [place] [id number] Comment: PROVIDER INFORMATION VITALS INFORMATION Vital Sign [...] every day. dulagluti (more content not included)... [facility] 09-25-2023 Note Procedure: Decompres maria teresa of median nerve left wrist with release of carpal canal Pre Op Diagnosis: Carpal tunnel syndrome left Post Op Diagnosis: Carpal tunnel syndrome left Surgeon: Dr. Adlo Miller DO Anesthesia: MAC local Indication for [...] on: 09/25/2023 08:41 EST] Arianna Miller DO [facility] 09-11-2023 History of Present illness Narrative 2nd attempt to contact referring office for most recent office notes and testing documented in this encounter [facility] 12-07-2022 Note Attestation signed by Robson Paz [...] Medical History: Diagnosis Date Anxiety Diabetes mellitus ([facility]) Objective Exam: - Incision with [...] Ousmane Perez MD Orthopedic Surgery, PGY-5 Pager: [phone] 12/07/22 11:51 AM By using the attestations [...] be an additional personal documentation from me. [facility] 11-21-2022 Note Patient: Carissa Olvera or Procedure Summary Date: 11/21/22 Room / Location: [address] OR Anesthesia Start: 1046 Anesthesia Stop: 1144 Procedure: ULNAR NERVE DECOMPRESSION [...] no known notable events for this encounter. [facility] 11-21-2022 Note Patient: Carissa Olvera or Procedure Information Anesthesia Start Date/Time: 11/21/221046 Procedure: ULNAR NERVE DECOMPRESSION (Left: Forearm) Location: [address] OR Surgeons: Robson Paz MD Relevant Problems [...] Plan discussed with CAA. Additional Equipment Requests [facility] 11-21-2022 Note Patient: Carissa Olvera or Procedure Summary Date: 11/21/22 Room / Location: [address] OR Anesthesia Start: 1047 Anesthesia Stop: Procedure: ULNAR NERVE DECOMPRESSION (Left: Forearm) Diagnosis: Cubital tunnel syndrome on left (Cubital tunnel syndrome on left [G56.22]) Surgeons: Robson Paz MD Responsible Provider: Paul Smith MD Anesthesia Type: MAC ASA Status: Not recorded Anesthesia Post [facility] Oxygen Flow (L/min): 8 Patient Monitor: direct observation Transport: uneventful Patient condition is: stable [facility] 11-21-2022 Note Peripheral Block Patient location during procedure: pre-op Start time: 11/21/2022 10:15 AM End time: 11/21/2022 10:30 AM Reason for block: primary anesthetic and at surgeon's request Staffing Performed: resident/TELEMARKETING AGENT/CAA Anesthesiologist: Paul Smith MD Resident/TELEMARKETING AGENT: Mike Calloway MD Preanesthetic Checklist Completed: patient [...] rate change: no Slow fractionated injection: yes [facility] 11-04-2022 Note Attestation signed by Robson [...] Santos is a 42 y.o. year old [id number] female presenting for evaluation of left hand [...] Past Medical History: Diagnosis Date Diabetes mellitus ([facility]) Objective General: Body mass index [...] finger: normal A1 carina and AROM Strength: slip cover estimator 5/5, thumb 5/5, interossei 5/5 Sensation: intact [...] surgical intervention - Instructed patient that our certified surgical technologist reach out regarding future surgical date - Surgery will be performed under regional anesthesia -Return to clinic for surgical intervention -Call the orthopedic office any questions or concerns Michael Ward MD Orthopedic Surgery Resident Physician Pager: [phone] 11/04/22 12:35 PM By using the attestations [...] be an additional personal documentation from me. [facility] 10-03-2021 History of Present illness Narrative Images from the original note were not included. [facility] Office: [phone] Hemal Charles DO, Steve Raza DO, Costa Cai DO, Gallito Lino DO, Natalee Negrete MD, Coreen Bryant MD, Shruti Bautista MD, Zulay Bueno MD, Priya Paul MD, Kevin Collins MD, Lyndsey Galindo MD, Morro Overton DO, Guido Salas DO, Rakel Aquino MD, Libby Samuel DO, Maycol Gomez MD, Kalyan Corbett MD, Shahzad Faria MD, Cee Casarez MD, Donavan Richadrson MD, Autumn David, TAX EXAMINING TECHNICIAN, Laurie Hernandez, TAX EXAMINING TECHNICIAN, Veronica Garcia, TAX EXAMINING TECHNICIAN, Ada Rascon, REGIONAL AGRONOMIST, Jamal Soto, TAX EXAMINING TECHNICIAN, Shellie Patton, TAX EXAMINING TECHNICIAN, Dahiana Albarado, TAX EXAMINING TECHNICIAN, Reba Holly, TAX EXAMINING TECHNICIAN, Andi Mcdonald, TAX EXAMINING TECHNICIAN, Terrance Smalls PA-C, Dahiana Vyas, DNP, Christina Tanner, DNP, Karyna Hernandez, TAX EXAMINING TECHNICIAN, Croina Bedoya, TAX EXAMINING TECHNICIAN, Amber Dewey, TAX EXAMINING TECHNICIAN, Archana Lockhart, TAX EXAMINING TECHNICIAN, Emili Stapleton, TAX EXAMINING TECHNICIAN, Nina Anthony, TAX EXAMINING TECHNICIAN [facility] IN-PATIENT SERVICE [facility] Progress Note 10/03/2021 12:57 PM Name: Carissa Santos Acct: [id number] Room: 0161/0161-01 IP Day: 5 Admit Date: 09/28/2021 9:38 AM PCP: Diaz Dalton MD Code Status: Full Code Subjective: C/C: DKA Interval History Status: unchanged. Patient seen and examined, feeling better today. Discharge, plan for transfer to be Brief History: Carissa Santos is a 41 year old female who was transferred from an [facility] facility with DKA. Her presentation to ED on 09/26/21 showed her initial blood sugar of 816 with a beta-hydroxybutyrate 11.24, anion gap >25 with (+) ketones in urine. She was started on DKA protocol with bicarb drip, IVF and insulin drip and was transferred to [facility] on 09/28/21 for ICU admission and further treatment. In addition she had an elevated D-dimer. CTPE (-) for PE but concerning for RML pulmonary nodule and ill-defined ground glass opacification in the RUL concerning for PNA. She did have episodes of vomiting which have subsided. She was bridged to lantus insulin and insulin drip was discontinued. Transfer to [facility]urg [facility] 09/29/21 Review of Systems: Constitutional: negative [...] history of MRDD initially went to the [facility] for nausea, shivering, chills and altered mental status. Patient was found to have DKA with bilateral lower lobe pneumonia. CTA negative for PE but it showed 13 mm pulmonary nodule. Patient was transferred to [facility] for further care. In ICU she [...] Date 10/03/21 0000 - 10/03/21 2359 Shift 0752-2826 8092-9709 8397-8028 24 Hour Total INTAKE P.O.(mL/kg/hr) 360(0.4) 360 Shift Total(mL/kg) 360(3.6) 360(3.6) OUTPUT Shift Total(mL/kg) Weight (kg) 101.2 101.2 101.2 101.2 LABS: ABGs: No results for input(s): POCPH, POCPCO2, POCPO2, POCHCO3, [id number] in the last 72 hours. CBC: Recent [...] Liver Function Test: Recent Labs 10/01/2123310/01/21 0859 10/02/21 0932 PROT 4.6* -- -- [...] this chart was generated using voice recognition [employer] dictation software. Although every effort was made to ensure the accuracy of this automated diesel engine pipe fitter, some errors in diesel engine pipe fitter may have occurred. Gyro Mechanic spoke with pt's mother Jeanine in regards to patient's discharge. Jeanine states she knows how to perform the dressing on pt's arm and is comfortable doing so. Pt will need a ride home. Gyro Mechanic will reach out to case management for setting up a ride. Images from the original note were not included. [facility] Office: [phone] Hemal Charles DO, Steve Raza DO, Costa Cai DO, Gallito Lino DO, Natalee Negrete MD, Coreen Bryant MD, Shruti Bautista MD, Zulay Bueno MD, Priya Paul MD, Kevin Collins MD, Lyndsey Galindo MD, Morro Overton DO, Guido Salas DO, Rakel Aquino MD, Libby Samuel DO, Maycol Gomez MD, Kalyan Corbett MD, Shahzad Faria MD, Cee Casarez MD, Donavan Richardson MD, Autumn David, TAX EXAMINING TECHNICIAN, Laurie Hernandez TAX EXAMINING TECHNICIAN, Veronica Garcia TAX EXAMINING TECHNICIAN, Ada Rascon, REGIONAL AGRONOMIST, Jamal Soto CNP, Shellie Patton CNP, Dahiana Albarado CNP, Reba Holly CNP, Andi Mcdonald CNP, Terrance Smalls PA-C, Dahiana Vyas DNP, Christina Tanner DNP, Karyna Hernandez CNP, Corina Bedoya CNP, Amber Dewey CNP, Archana Lockhart TAX EXAMINING TECHNICIAN, Emili Stapleton, LUCIANO, Nina Anthony, TAX EXAMINING TECHNICIAN [facility] IN-PATIENT SERVICE [facility] Progress Note 10/02/2021 1:51 PM Name: Carissa Santos Acct: [id number] Room: 016/1-01 IP Day: 4 Admit Date: 09/28/2021 9:38 [...] old [facility]. Her presentation to ED on 09/26/21 showed her initial blood sugar of 816 with a beta-hydroxybutyrate 11.24, anion gap >25 with (+) ketones in urine. She was started on DKA protocol with bicarb drip, IVF and insulin drip and was transferred to [facility] on 09/28/21 for ICU admission and [...] 1638 10/01/21 2018 10/02/21 0616 10/02/21 0806 10/02/21 0932 10/02/21 1114 [...] injury (DREW) with acute tubular necrosis (ATN) ([facility]) 09/30/2021 Yes High anion gap [...] history of MRDD initially went to the [facility] for nausea, shivering, chills and altered mental status. Patient was found to have DKA with bilateral lower lobe pneumonia. CTA negative for PE but it showed 13 mm pulmonary nodule. Patient was transferred to [facility] for further care. In ICU she [...] 400 [Urine:400] Date 10/02/21 - 10/02/212358 Shift 3739-2616 6111-7644 5186-8422 24 Hour Total INTAKE I.V.(mL/kg) 522(5.2) 522(5.2) Shift Total(mL/kg) 522(5.2) 522(5.2) OUTPUT Shift Total(mL/kg) Weight (kg) 101.2 101.2 101.2 101.2 LABS: ABGs: No results for input(s): POCPH, POCPCO2, POCPO2, POCHCO3, [id number] in the last 72 hours. CBC: Recent [...] last 72 hours. LDH: Recent Labs 10/01/21 08 LDH 233* BMP: Recent Labs 09/30/21 0437 [...] Keith Bailey MD PGY-3, Internal medicine resident [facility], [place], [place] Please note that this chart was generated using voice recognition Maanaon dictation software. Although every effort was made to ensure the accuracy of this automated diesel engine pipe fitter, some errors in diesel engine pipe fitter may have occurred. Associated attestation - Gian Marr MD - 10/02/2021 6:49 PM EST Attending Physician Statement I have discussed the case of Carissa Santos, including pertinent history and exam findings with the resident/fellow/medical student/WOOL AND PELT GRADER/PA. I have seen and examined the patient and the timmons elements of the encounter have been performed by me. I agree with the assessment, plan and orders as documented by the resident/fellow/medical student/WOOL AND PELT GRADER/PA With changes made to the note as [...] up with her primary care physician and cutter operator tile in [place] as she does not have any transportation to come to [place] or [place] Gian Marr MD 10/02/2021 6:48 PM Gyro Mechanic notified Pt was in SVT with HR in 160-170 that was sustained for approximately 1-2 minutes. Pt has since converted back to NSR ( HR 91) . Pt was asymptomatic during rhythm. Is there anything you would like done? . No new orders at this time. GOSIA KOLB, PPatient Assessment complete. DKA, type 1, not at [...] cough or weak non-productive cough GOSIA KOLB, [facility] 1:03 PM FEMALE MALE FEV1 Predicted Normal [...] [phone] Physical Therapy Facility/Department: [address] [facility] Daily Treatment Note NAME: [...] 0-100% Score: 46.58 (10/01/21 1230) Mobility Inpatient [facility] G-Code Modifier : CK (10/01/21 1230) Goals [...] Minutes Sarah Guzmán PTA Called pt room ([phone]) and number in chart but no answer. [...] from the original note were not included. [facility] Office: [phone] Hemal Charles DO, Steve Raza DO, Costa Cai DO, Gallito Lino DO, Natalee Negrete MD, Coreen Bryant MD, Shruti Bautista MD, Zulay Bueno MD, Priya Paul MD, Kevin Collins MD, Lyndsey Galindo MD, Morro Overton DO, Guido Salas DO, Rakel Aquino MD, Libby Samuel DO, Maycol Gomez MD, Kalyan Corbett MD, Shahzad Faria MD, Cee Casarez MD, Donavan Richardson MD, Autumn David, TAX EXAMINING TECHNICIAN, Laurie Hernandez, TAX EXAMINING TECHNICIAN, Veronica Garcia, TAX EXAMINING TECHNICIAN, Ada Rascon, REGIONAL AGRONOMIST, Jamal Soto, TAX EXAMINING TECHNICIAN, Shellie Patton, TAX EXAMINING TECHNICIAN, Dahiana Albarado, TAX EXAMINING TECHNICIAN, Reba Holly, TAX EXAMINING TECHNICIAN, Andi Mcdonald, TAX EXAMINING TECHNICIAN, YANIRA MarrC, Dahiana Vyas, DNP, Christina Tanner, DNP, Karyna Hernandez, TAX EXAMINING TECHNICIAN, Corina Bedoya, TAX EXAMINING TECHNICIAN, Amber Dewey, TAX EXAMINING TECHNICIAN, Archana Lockhart, TAX EXAMINING TECHNICIAN, Emili Stapleton, TAX EXAMINING TECHNICIAN, Nina Anthony, TAX EXAMINING TECHNICIAN [facility] IN-PATIENT SERVICE [facility] Progress Note 10/01/2021 11:21 AM Name: Carissa Santos Acct: [id number] Room: 016/0161-01 IP Day: 3 Admit Date: 09/28/2021 9:38 AM PCP: Diaz Dalton MD Code Status: Full Code Subjective: C/C: DKA Interval History Status: unchanged. Patient seen and examined today, continues to have diffuse diarrhea. Bicarb still 13 on full bicarb drip. Will consult infectious disease, spoke with nursing staff Brief History: Carissa Santos is a 41 year old female who was transferred from an [facility] facility with DKA. Her presentation to ED on 09/26/21 showed her initial blood sugar of 816 with a beta-hydroxybutyrate 11.24, anion gap >25 with (+) ketones in urine. She was started on DKA protocol with bicarb drip, IVF and insulin drip and was transferred to [facility] on 09/28/21 for ICU admission and further treatment. In addition she had an elevated D-dimer. CTPE (-) for PE but concerning for RML pulmonary nodule and ill-defined ground glass opacification in the RUL concerning for PNA. She did have episodes of vomiting which have subsided. She was bridged to lantus insulin and insulin drip was discontinued. Transfer to [facility] 09/29/21 Review of Systems: Constitutional: negative [...] injury (DREW) with acute tubular necrosis (ATN) ([facility]) 09/30/2021 Yes High anion gap [...] history of MRDD initially went to the [facility] for nausea, shivering, chills and altered mental status. Patient was found to have DKA with bilateral lower lobe pneumonia. CTA negative for PE but it showed 13 mm pulmonary nodule. Patient was transferred to [facility] for further care. In ICU she [...] 2600 [Urine:2600] Date 10/01/21 0000 - 10/01/21 235 Shift 7625-8905 3361-4839 2800-4251 24 Hour Total INTAKE Shift Total(mL/kg) OUTPUT Urine(mL/kg/hr) 600(0.7) 600 Shift Total(mL/kg) 600(5.9) 600(5.9) Weight (kg) 101.2 101.2 101.2 101.2 LABS: ABGs: No results for input(s): POCPH, POCPCO2, POCPO2, POCHCO3, [id number] in the last 72 hours. CBC: Recent [...] last 72 hours. BMP: Recent Labs 09/28/21 21509/28/21 2157 09/29/21 0153 09/29/21 0153 09/29/21 0501 [...] Keith Bailey MD PGY-3, Internal medicine resident [facility], [place], [place] Please note that this chart was generated using voice recognition Maanaon dictation software. Although every effort was made to ensure the accuracy of this automated diesel engine pipe fitter, some errors in diesel engine pipe fitter may have occurred. Attending Physician Statement I [...] x-ray PA lateral view tomorrow. [facility] not available at this time we will requested again. Patient is aware and discussed with her again that she will need CT scan of the chest for follow-up of right middle lobe lung nodule in 3 months. Patient follow-up locally in [facility] with [facility] scan and outpatient pulmonary CT scan Discussed with nursing staff, treatment and plan discussed. Please note that this chart was generated using voice recognition Dragon dictation software. Although every effort was made to ensure the accuracy of this automated diesel engine pipe fitter, some errors in diesel engine pipe fitter may have occurred. Leonel Draper MD 10/01/2021 [...] Ambulation Assistance: Independent Transfer Assistance: Independent Active Personal Fitness Manager: No Patient's Personal Fitness Manager Info: mother drives Occupation: Unemployed Leisure & [...] T-Scale Score : 38.66 (09/30/211709) ADL Inpatient [facility] 0-100% Score: 46.65 (09/30/211709) ADL Inpatient [facility] G-Code Modifier : CK (09/30/211709) Goals Short [...] Treatment Minutes: 23 Minutes Dayna Yates OTS Gyro Mechanic reached out to community leader on 2C to obtain lung scans from [facility]. expense clerk attempting to reach out, content writer will reevaluate Attempted assessment/education but health care / medical job titles assisting pt with personal care/needs. PULMONARY & CRITICAL CARE MEDICINE PROGRESS NOTE Patient: Carissa Santos Admit date: 09/28/2021 Primary Care Physician: Diaz Dalton MD Consulting Physician: Maycol Gomez MD CODE Status: Full Code LOS: 2 SUBJECTIVE Chief Complaint/ Reason for consult: Pneumonia Hospital Course: The patient is a 41 y.o. female with past medical history of MRDD initially went to the [facility] for nausea, shivering, chills and altered mental status. Patient was found to have DKA with bilateral lower lobe pneumonia. CTA negative for PE but it showed 13 mm pulmonary nodule. Patient was transferred to [facility] for further care. In ICU she [...] % NaCl Stopped (09/29/21 0712) INPUT/OUTPUT: In: 1912 [I.V.:1737] Out: 2750 [Urine:2750] Date 09/30/21 0000 - 09/30/21 2359 Shift 5237-0140 0191-3220 4929-0651 24 Hour Total INTAKE Shift Total(mL/kg) OUTPUT Urine(mL/kg/hr) 500(0.6) 1000 1500 Shift Total(mL/kg) 500(4.9) 1000(9.9) 1500(14.8) Weight (kg) 101.2 101.2 101.2 101.2 LABS: ABGs: No results for input(s): POCPH, POCPCO2, POCPO2, POCHCO3, FDNI2XLU in the last 72 hours. CBC: Recent [...] Keith Bailey MD PGY-3, Internal medicine resident [facility], [place], [place] Please note that this chart was generated using voice recognition Maanaon dictation software. Although every effort was made to ensure the accuracy of this automated diesel engine pipe fitter, some errors in diesel engine pipe fitter may have occurred. Attending Physician Statement I [...] CT scan of the chest done in [facility] before she was transferred shows right upper lobe possible groundglass infiltrate/pneumonia and right middle lobe 13 mm nodule which according to radiology report (I do not have any images available from [facility]) could be infectious inflammatory or other etiology. [...] this chart was generated using voice recognition Maana[employer] dictation software. Although every effort was made to ensure the accuracy of this automated diesel engine pipe fitter, some errors in diesel engine pipe fitter may have occurred. Leonel Draper MD 09/30/2021 3:36 PM RN attempted to call mother of patient, Lynne, to give update on pt's status, with no answer. Will try again later. Physical Therapy Facility/Department: [address] [facility] Initial Assessment NAME: Carissa [...] Ambulation Assistance: Independent Transfer Assistance: Independent Active Personal Fitness Manager: No Patient's Personal Fitness Manager Info: mother drives Occupation: Unemployed Leisure & [...] Bed mobility Supine to Sit: Minimal assistance (PRODUCTION ZONE LEADER) Sit to Supine: (retired to bedside chair [...] from the original note were not included. [facility] Office: [phone] Hemal Charles DO, Steve Raza DO, Costa Cai DO, Gallito Lino DO, Natalee Negrete MD, Coreen Bryant MD, Shruti Bautista MD, Zulay Bueno MD, Priya Paul MD, Kevin Collins MD, Lyndsey Galindo MD, Morro Overton DO, Guido Salas DO, Rakel Aquino MD, Libby Samuel DO, Maycol Gomez MD, Kalyan Corbett MD, Shazhad Faria MD, Cee Casarez MD, Donavan Richardson MD, Autumn David, TAX EXAMINING TECHNICIAN, Laurie Hernandez, TAX EXAMINING TECHNICIAN, Veronica Garcia, TAX EXAMINING TECHNICIAN, Ada Rascon, REGIONAL AGRONOMIST, Jamal Soto, TAX EXAMINING TECHNICIAN, Shellie Patton, TAX EXAMINING TECHNICIAN, Dahiana Albarado, TAX EXAMINING TECHNICIAN, Reba Holly, TAX EXAMINING TECHNICIAN, Andi Mcdonald, TAX EXAMINING TECHNICIAN, Terrance Smalls, PA-C, Dahiana Vyas, DNP, Christina Tanner, DNP, Karyna Hernandez, TAX EXAMINING TECHNICIAN, Corina Bedoya, TAX EXAMINING TECHNICIAN, Amber Dewey, TAX EXAMINING TECHNICIAN, Archana Lockhart, TAX EXAMINING TECHNICIAN, Emili Stapleton, TAX EXAMINING TECHNICIAN, Nina Anthony, TAX EXAMINING TECHNICIAN [facility] IN-PATIENT SERVICE [facility] Progress Note 09/30/2021 11:41 AM Name: Carissa Santos Acct: [id number] Room: 0161/0161-01 Day: 2 Admit Date: 09/28/2021 9:38 AM PCP: Diaz Dalton MD Code Status: Full Code Subjective: C/C: DKA Interval History Status: unchanged. Pt seen and evaluated this morning. She continues to feel ill. Continues to have a dry cough. She is denying fever, chills, nausea, vomiting, diarrhea. Brief History: Carissa Santos is a 41 year old female [facility]. Her presentation to ED on 09/26/21 showed her initial blood sugar of 816 with a beta-hydroxybutyrate 11.24, anion gap >25 with (+) ketones in urine. She was started on DKA protocol with bicarb drip, IVF and insulin drip and was transferred to [facility] on 09/28/21 for ICU admission and further treatment. In addition she had an elevated D-dimer. CTPE (-) for PE but concerning for RML pulmonary nodule and ill-defined ground glass opacification in the RUL concerning for PNA. She did have episodes of vomiting which have subsided. She was bridged to lantus insulin and insulin drip was discontinued. Transfer to [facility] bed 09/29/21 Review of Systems: Constitutional: negative [...] Patient's name: Carissa Santos Patient's account/billing number: [id number] Patient's Date of : 1980 Age: 41 [...] history of MRDD, diabetes mellitus came from [facility] after presenting there with altered mental status and found to be in DKA. Over that patient was started on an insulin drip, Ringer lactate, bicarb drip. Transferred to [facility] for further management. Overnight was bridged to Lantus, tolerating diet. On admission her D-dimer was high, CT PE negative for emboli but concerning for pneumonia as well as right middle lobe 13 mm pulmonary nodule. Patient is being treated with ceftriaxone and azithromycin for pneumonia and UTI, Diflucan added for yeast in urine. director of business services consulted Current Vitals: BP (!) 109/59 [...] Patient's name: Carissa Santos Patient's account/billing number: [id number] Patient's Date of : 1980 Age: 41 [...] degree Ulcer prophylaxis: [] PPI Agent, [] [id number], [] Sucralfate, [] Other: Not indicated Glycemic [...] Giron Sra, MD Department of Critical Care [facility], [place] 09/29/2021, 8:19 AM Associated attestation - Gian Marr MD - 09/29/2021 7:26 PM EST Attending Physician Statement I have discussed the case of Carissa Santos, including pertinent history and exam findings with the resident/fellow/medical student/WOOL AND PELT GRADER/PA. I have seen and examined the patient and the timmons elements of the encounter have been performed by me. I agree with the assessment, plan and orders as documented by the resident/fellow/medical student/WOOL AND PELT GRADER/PA With changes made to the note as [...] monitor We will transfer the patient to [facility] bed and we will follow the patient [...] with pastoral care, Ethics consult entered per mat packer's recommendation for help with decision making and [...] from the original note were not included. [facility] Nurse Consult Note NAME: [...] Wound Volume (cm^3) 2.96 cm^3 Wound Assessment Subcutaneous;Paragould/red Drainage Amount Small Drainage Description Serosanguinous Odor [...] contents upon arrival. documented in this encounter [facility] Phone: 09-29-2021 Hospital Discharge instructions Li Phelan RN - 09/29/2021 1:44 PM EST Images from the original note were not included. Continuity of Care Form Patient Name: Carissa Santos : 1980 Admit date: 09/28/2021 Discharge date: 10/02/21 Code Status Order: Full Code Advance Directives: Admitting Physician: Jamal Levine MD PCP: Diaz Dalton MD Discharging Nurse: Li [facility] Discharging [facility] [...] Independent Dressing Independent Toileting Independent Feeding Independent Compliance Auditor Independent Med Delivery whole Wound Care Documentation and Therapy: Rt upper arm: Irrigate the arm wound with NS Gently fill with Iodoform gauze Cover with dry gauze Change daily. Wound 09/28/21 Brachial Anterior;Right (Active) Wound Image 09/28/21 1445 Wound Etiology Surgical 09/29/21 08 Dressing Status Clean;Dry;Intact 09/29/21 08 Wound Cleansed Irrigated with saline 09/28/21 144 Dressing/Treatment Iodoform gauze;Dry dressing 09/28/21 1445 Dressing Change Due 09/29/21 09/29/21 08 Wound Length (cm) 3.7 cm 09/28/21 1445 Wound Width (cm) 1 cm 09/28/21 1445 Wound Depth (cm) 0.8 cm 09/28/21 144 Wound Surface Area (cm^2) 3.7 cm^2 09/28/21 1445 Wound Volume (cm^3) 2.96 cm^3 09/28/21 144 Wound Assessment Other (Comment) 09/29/21 08 Drainage Amount Small 09/28/21 144 Drainage Description Serosanguinous 09/28/21 144 Odor None 09/28/21 144 Jerilyn-wound Assessment Other (Comment) 09/29/21 08 Number of days: 1 Elimination: Continence: Bowel: [...] [facility] [address] [facility] [address] Dialysis Facility (if applicable) Name: Address: Dialysis Schedule: Phone: Fax: Passenger Solicitor/Geospatial Technician signature: PHYSICIAN SECTION Prognosis: Good Condition at Discharge: Stable Rehab Potential (if transferring to Rehab): Good Recommended Labs or Other Treatments After Discharge: senior care assessment, medication education, wound care Rt upper [...] No change in H&P PHYSICIAN SIGNATURE: Guido Salas DO - 10/02/2021 See PCP 1 week, get kidney function checked Start lantus 10 units BID, increase by 5 units daily if morning blood sugars >120 otherwise do not change Follow-up in 3 months with PCP for repeat CT scan chest for pulmonary nodule evaluation documented in this encounter [employer] Phone: Evaluation note Diagnosis DKA, type 1, not at goal (HCC)- Primary 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, uncontrolled Pneumonia due to infectious organism Mental developmental delay Unspecified delay in development Acute kidney injury (DREW) with acute tubular necrosis (ATN) ([facility]) High anion gap metabolic acidosis Acidosis documented in this encounter [facility] Phone: evaluation note* Diagnosis Status post carpal tunnel release- Primary Other postprocedural status Amenorrhea Absence of menstruation [facility] Diagnosis Amenorrhea Absence of menstruation [facility]* Diagnosis Type 2 diabetes mellitus with hyperglycemia, with long-term current use of insulin ([facility])- Primary [facility] Diagnosis Post-operative pain- Primary Other acute postoperative pain [facility]* Diagnosis Mild episode of recurrent major depressive disorder (HCC) ([facility])- Primary Type 2 diabetes mellitus with microalbuminuria, with long-term current use of insulin ([facility]) JOHN (generalized anxiety disorder) ([facility]) Generalized anxiety disorder Migraine without aura and without status migrainosus, not intractable ([facility]) Irritable bowel syndrome with diarrhea Irritable bowel syndrome Gastroesophageal reflux disease without esophagitis Esophageal reflux Hot flashes due to menopause Morbid obesity ([facility]) 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 (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.4) Obesity hypoventilation syndrome ([facility])- Primary Obesity hypoventilation syndrome Hypoxia Hypoxemia Type 2 diabetes mellitus with microalbuminuria, with long-term current use of insulin ([facility]) Right carpal tunnel syndrome Carpal tunnel syndrome Elevated blood-pressure reading without diagnosis of hypertension Elevated blood pressure reading without diagnosis of hypertension Type 2 diabetes mellitus with hyperglycemia, with long-term current use of insulin ([facility])- Primary Mild episode of recurrent major depressive disorder (HCC) ([facility]/HCC) JOHN (generalized anxiety disorder) ([facility]) Generalized anxiety disorder Carpal tunnel syndrome of left wrist Obesity hypoventilation syndrome ([facility]/HCC) Obesity hypoventilation syndrome Generalized edema Edema Irritable bowel syndrome with diarrhea Irritable bowel syndrome Gastroesophageal reflux disease without esophagitis Esophageal reflux Anxiety state ([facility]) Anxiety state, unspecified Type 2 diabetes mellitus with hyperglycemia, with long-term current use of insulin ([facility])- Primary Right carpal tunnel syndrome Carpal tunnel syndrome Chronic hypoxic respiratory failure ([facility]) Mild episode of recurrent major depressive disorder (HCC) ([facility]/HCC) JOHN (generalized anxiety disorder) ([facility]) Generalized anxiety disorder Generalized edema 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 Spondylosis of unspecified site without mention of myelopathy 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 elsewhere ([facility]) Acute pain of right knee- Primary Type 2 diabetes mellitus with microalbuminuria, with long-term current use of insulin ([facility]) Right carpal tunnel syndrome Carpal tunnel syndrome Status post carpal tunnel release- Primary Other postprocedural status documented in this encounter [facility]* Diagnosis Pulmonary hypertension ([facility])- Primary Other chronic pulmonary heart diseases [facility] Diagnosis Mild episode of recurrent major depressive disorder (HCC) ([facility])- Primary Type 2 diabetes mellitus with microalbuminuria, with long-term current use of insulin ([facility]) JOHN (generalized anxiety disorder) ([facility]) Generalized anxiety disorder Migraine without aura and without status migrainosus, not intractable ([facility]) Irritable bowel syndrome with diarrhea Irritable bowel syndrome Gastroesophageal reflux disease without esophagitis Esophageal reflux Hot flashes due to menopause Morbid obesity ([facility]) Morbid obesity long-term (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 insulin (Z79.4) Obesity hypoventilation syndrome ([facility])- Primary Obesity hypoventilation syndrome Hypoxia Hypoxemia Type 2 diabetes mellitus with microalbuminuria, with long-term current use of insulin ([facility]) Right carpal tunnel syndrome Carpal tunnel syndrome Elevated blood-pressure reading without diagnosis of hypertension Elevated blood pressure reading without diagnosis of hypertension Type 2 diabetes mellitus with hyperglycemia, with long-term current use of insulin ([facility])- Primary Mild episode of recurrent major depressive disorder (HCC) ([facility]) JOHN (generalized anxiety disorder) ([facility]) Generalized anxiety disorder Carpal tunnel syndrome of left wrist Obesity hypoventilation syndrome ([facility]) Obesity hypoventilation syndrome Generalized edema Edema Irritable bowel syndrome with diarrhea Irritable bowel syndrome Gastroesophageal reflux disease without esophagitis Esophageal reflux Anxiety state ([facility]) Anxiety state, unspecified Type 2 diabetes mellitus with hyperglycemia, with long-term current use of insulin ([facility])- Primary Right carpal tunnel syndrome Carpal tunnel syndrome Chronic hypoxic respiratory failure ([facility]) Mild episode of recurrent major depressive disorder (HCC) ([facility]) JOHN (generalized anxiety disorder) ([facility]) Generalized anxiety disorder Generalized edema 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 Spondylosis of unspecified site without mention of myelopathy 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 elsewhere ([facility]) Acute pain of right knee- Primary Type 2 diabetes mellitus with microalbuminuria, with long-term current use of insulin (CMS/HCC) Right carpal tunnel syndrome Carpal tunnel syndrome Anxiety state ([facility]) Anxiety state, unspecified [facility] Diagnosis Mild episode of recurrent major depressive disorder (HCC) ([facility])- Primary Type 2 diabetes mellitus with microalbuminuria, with long-term current use of insulin ([facility]) JOHN (generalized anxiety disorder) ([facility]) Generalized anxiety disorder Migraine without aura and without status migrainosus, not intractable ([facility]) Irritable bowel syndrome with diarrhea Irritable bowel syndrome Gastroesophageal reflux disease without esophagitis Esophageal reflux Hot flashes due to menopause Morbid obesity ([facility]) 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 (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.4) Obesity hypoventilation syndrome ([facility])- Primary Obesity hypoventilation syndrome Hypoxia Hypoxemia Type 2 diabetes mellitus with microalbuminuria, with long-term current use of insulin ([facility]) Right carpal tunnel syndrome Carpal tunnel syndrome Elevated blood-pressure reading without diagnosis of hypertension Elevated blood pressure reading without diagnosis of hypertension Type 2 diabetes mellitus with hyperglycemia, with long-term current use of insulin ([facility])- Primary Mild episode of recurrent major depressive disorder (HCC) ([facility]) JOHN (generalized anxiety disorder) ([facility]) Generalized anxiety disorder Carpal tunnel syndrome of left wrist Obesity hypoventilation syndrome ([facility]) Obesity hypoventilation syndrome Generalized edema Edema Irritable bowel syndrome with diarrhea Irritable bowel syndrome Gastroesophageal reflux disease without esophagitis Esophageal reflux Anxiety state ([facility]) Anxiety state, unspecified Type 2 diabetes mellitus with hyperglycemia, with long-term current use of insulin ([facility])- Primary Right carpal tunnel syndrome Carpal tunnel syndrome Chronic hypoxic respiratory failure ([facility]) Mild episode of recurrent major depressive disorder (HCC) ([facility]) JOHN (generalized anxiety disorder) ([facility]) Generalized anxiety disorder Generalized edema 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 Spondylosis of unspecified site without mention of myelopathy 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 elsewhere ([facility]) Acute pain of right knee- Primary Type 2 diabetes mellitus with microalbuminuria, with long-term current use of insulin ([facility]) Right carpal tunnel syndrome Carpal tunnel syndrome Status post carpal tunnel release- Primary Other postprocedural status documented [facility] Diagnosis Mild episode of recurrent major depressive disorder (HCC) ([facility])- Primary Type 2 diabetes mellitus with microalbuminuria, with long-term current use of insulin ([facility]) JOHN (generalized anxiety disorder) ([facility]) Generalized anxiety disorder Migraine without aura and without status migrainosus, not intractable ([facility]) Irritable bowel syndrome with diarrhea Irritable bowel syndrome Gastroesophageal reflux disease without esophagitis Esophageal reflux Hot flashes due to menopause Morbid obesity ([facility]) Morbid obesity long-term (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 insulin (Z79.4) Obesity hypoventilation syndrome ([facility])- Primary Obesity hypoventilation syndrome Hypoxia Hypoxemia Type 2 diabetes mellitus with microalbuminuria, with long-term current use of insulin ([facility]) Right carpal tunnel syndrome Carpal tunnel syndrome Elevated blood-pressure reading without diagnosis of hypertension Elevated blood pressure reading without diagnosis of hypertension Type 2 diabetes mellitus with hyperglycemia, with long-term current use of insulin ([facility])- Primary Mild episode of recurrent major depressive disorder (HCC) ([facility]) JOHN (generalized anxiety disorder) ([facility]) Generalized anxiety disorder Carpal tunnel syndrome of left wrist Obesity hypoventilation syndrome ([facility]) Obesity hypoventilation syndrome Generalized edema Edema Irritable bowel syndrome with diarrhea Irritable bowel syndrome Gastroesophageal reflux disease without esophagitis Esophageal reflux Anxiety state ([facility]) Anxiety state, unspecified Type 2 diabetes mellitus with hyperglycemia, with long-term current use of insulin ([facility])- Primary Right carpal tunnel syndrome Carpal tunnel syndrome Chronic hypoxic respiratory failure ([facility]) Mild episode of recurrent major depressive disorder (HCC) ([facility]) JOHN (generalized anxiety disorder) ([facility]) Generalized anxiety disorder Generalized edema 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 Spondylosis of unspecified site without mention of myelopathy 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 elsewhere ([facility]) Acute pain of right knee- Primary Type 2 diabetes mellitus with microalbuminuria, with long-term current use of insulin ([facility]) Right carpal tunnel syndrome Carpal tunnel syndrome Type 2 diabetes mellitus with hyperglycemia, with long-term current use of insulin ([facility]) [facility] Diagnosis Mild episode of recurrent major depressive disorder (HCC) ([facility])- Primary Type 2 diabetes mellitus with microalbuminuria, with long-term current use of insulin ([facility]/HCC) JOHN (generalized anxiety disorder) ([facility]) Generalized anxiety disorder Migraine without aura and without status migrainosus, not intractable ([facility]) Irritable bowel syndrome with diarrhea Irritable bowel syndrome Gastroesophageal reflux disease without esophagitis Esophageal reflux Hot flashes due to menopause Morbid obesity (CMS/HCC) Morbid obesity long-term (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 insulin (Z79.4) Obesity hypoventilation syndrome ([facility]/HCC)- Primary Obesity hypoventilation syndrome Hypoxia Hypoxemia Type 2 diabetes mellitus with microalbuminuria, with long-term current use of insulin ([facility]) Right carpal tunnel syndrome Carpal tunnel syndrome Elevated blood-pressure reading without diagnosis of hypertension Elevated blood pressure reading without diagnosis of hypertension Type 2 diabetes mellitus with hyperglycemia, with long-term current use of insulin ([facility])- Primary Mild episode of recurrent major depressive disorder (HCC) ([facility]) JOHN (generalized anxiety disorder) ([facility]) Generalized anxiety disorder Carpal tunnel syndrome of left wrist Obesity hypoventilation syndrome ([facility]) Obesity hypoventilation syndrome Generalized edema Edema Irritable bowel syndrome with diarrhea Irritable bowel syndrome Gastroesophageal reflux disease without esophagitis Esophageal reflux Anxiety state ([facility]) Anxiety state, unspecified Type 2 diabetes mellitus with hyperglycemia, with long-term current use of insulin ([facility])- Primary Right carpal tunnel syndrome Carpal tunnel syndrome Chronic hypoxic respiratory failure ([facility]) Mild episode of recurrent major depressive disorder (HCC) ([facility]) JOHN (generalized anxiety disorder) ([facility]) Generalized anxiety disorder Generalized edema 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 Spondylosis of unspecified site without mention of myelopathy 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 elsewhere ([facility]) Acute pain of right knee- Primary Type 2 diabetes mellitus with microalbuminuria, with long-term current use of insulin ([facility]) Right carpal tunnel syndrome Carpal tunnel syndrome Chronic hypoxic respiratory failure ([facility])- Primary Chronic heart failure with preserved ejection fraction (HFpEF) ([facility]) Type 2 diabetes mellitus with hyperglycemia, with long-term current use of insulin ([facility]) Pulmonary hypertension ([facility]) Other chronic pulmonary heart diseases Colon cancer screening Special screening for malignant neoplasms, colon Gastroesophageal reflux disease without esophagitis Esophageal reflux documented in this encounter [facility] HealthcareEvaluation note* Diagnosis Mild episode of recurrent major depressive disorder (HCC) ([facility])- Primary Type 2 diabetes mellitus with microalbuminuria, with long-term current use of insulin ([facility]/HCC) JOHN (generalized anxiety disorder) ([facility]) Generalized anxiety disorder Migraine without aura and without status migrainosus, not intractable ([facility]) Irritable bowel syndrome with diarrhea Irritable bowel syndrome Gastroesophageal reflux disease without esophagitis Esophageal reflux Hot flashes due to menopause Morbid obesity (CMS/HCC) Morbid obesity long-term (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 insulin (Z79.4) Obesity hypoventilation syndrome ([facility])- Primary Obesity hypoventilation syndrome Hypoxia Hypoxemia Type 2 diabetes mellitus with microalbuminuria, with long-term current use of insulin ([facility]/HCC) Right carpal tunnel syndrome Carpal tunnel syndrome Elevated blood-pressure reading without diagnosis of hypertension Elevated blood pressure reading without diagnosis of hypertension Type 2 diabetes mellitus with hyperglycemia, with long-term current use of insulin ([facility])- Primary Mild episode of recurrent major depressive disorder (HCC) ([facility]) JOHN (generalized anxiety disorder) ([facility]) Generalized anxiety disorder Carpal tunnel syndrome of left wrist Obesity hypoventilation syndrome ([facility]) Obesity hypoventilation syndrome Generalized edema Edema Irritable bowel syndrome with diarrhea Irritable bowel syndrome Gastroesophageal reflux disease without esophagitis Esophageal reflux Anxiety state ([facility]) Anxiety state, unspecified Type 2 diabetes mellitus with hyperglycemia, with long-term current use of insulin ([facility])- Primary Right carpal tunnel syndrome Carpal tunnel syndrome Chronic hypoxic respiratory failure ([facility]) Mild episode of recurrent major depressive disorder (HCC) ([facility]) JOHN (generalized anxiety disorder) ([facility]) Generalized anxiety disorder Generalized edema 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 Spondylosis of unspecified site without mention of myelopathy 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 elsewhere ([facility]) Acute pain of right knee- Primary Type 2 diabetes mellitus with microalbuminuria, with long-term current use of insulin ([facility]) Right carpal tunnel syndrome Carpal tunnel syndrome Well woman exam with routine gynecological exam Routine gynecological examination Chronic hypoxic respiratory failure ([facility])- Primary Chronic heart failure with preserved ejection fraction (HFpEF) ([facility]) Type 2 diabetes mellitus with hyperglycemia, with long-term current use of insulin ([facility]) Pulmonary hypertension ([facility]) Other chronic pulmonary heart diseases Colon cancer screening Special screening for malignant neoplasms, colon Gastroesophageal reflux disease without esophagitis Esophageal reflux documented in this encounter [facility] HealthcareEvaluation note* Diagnosis Type 2 diabetes mellitus with hyperglycemia, with long-term current use of insulin ([facility])- Primary Carpal tunnel syndrome of left wrist Anxiety state ([facility]) Anxiety state, unspecified documented in this encounter [facility] HealthcareEvaluation note* Diagnosis Mild episode of recurrent major depressive disorder (HCC) ([facility])- Primary Type 2 diabetes mellitus with microalbuminuria, with long-term current use of insulin ([facility]) JOHN (generalized anxiety disorder) ([facility]) Generalized anxiety disorder Migraine without aura and without status migrainosus, not intractable ([facility]) Irritable bowel syndrome with diarrhea Irritable bowel syndrome Gastroesophageal reflux disease without esophagitis Esophageal reflux Hot flashes due to menopause Morbid obesity ([facility]) 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 (Z79.4) Obesity hypoventilation syndrome ([facility])- Primary Obesity hypoventilation syndrome Hypoxia Hypoxemia Type 2 diabetes mellitus with microalbuminuria, with long-term current use of insulin ([facility]) Right carpal tunnel syndrome Carpal tunnel syndrome Elevated blood-pressure reading without diagnosis of hypertension Elevated blood pressure reading without diagnosis of hypertension Type 2 diabetes mellitus with hyperglycemia, with long-term current use of insulin ([facility])- Primary Mild episode of recurrent major depressive disorder (HCC) ([facility]) JOHN (generalized anxiety disorder) ([facility]) Generalized anxiety disorder Carpal tunnel syndrome of left wrist Obesity hypoventilation syndrome ([facility]) Obesity hypoventilation syndrome Generalized edema Edema Irritable bowel syndrome with diarrhea Irritable bowel syndrome Gastroesophageal reflux disease without esophagitis Esophageal reflux Anxiety state ([facility]) Anxiety state, unspecified Type 2 diabetes mellitus with hyperglycemia, with long-term current use of insulin ([facility])- Primary Right carpal tunnel syndrome Carpal tunnel syndrome Chronic hypoxic respiratory failure ([facility]) Mild episode of recurrent major depressive disorder (HCC) ([facility]) JOHN (generalized anxiety disorder) ([facility]) Generalized anxiety disorder Generalized edema 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 Spondylosis of unspecified site without mention of myelopathy 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 elsewhere ([facility]) Acute pain of right knee- Primary Type 2 diabetes mellitus with microalbuminuria, with long-term current use of insulin ([facility]) Right carpal tunnel syndrome Carpal tunnel syndrome Chronic hypoxic respiratory failure ([facility])- Primary Chronic heart failure with preserved ejection fraction (HFpEF) ([facility]) Type 2 diabetes mellitus with hyperglycemia, with long-term current use of insulin ([facility]) Pulmonary hypertension ([facility]) Other chronic pulmonary heart diseases [...] hyperglycemia, with long-term current use of insulin ([facility])- Primary Right carpal tunnel syndrome Carpal tunnel syndrome Chronic hypoxic respiratory failure ([facility]) Mild episode of recurrent major depressive disorder (HCC) ([facility]) JOHN (generalized anxiety disorder) ([facility]) Generalized anxiety disorder Generalized edema 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 Spondylosis of unspecified site without mention of myelopathy 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 elsewhere ([facility]) documented in this encounter [facility]Evaluation [facility]* Diagnosis Acute pain of right knee- Primary Type 2 diabetes mellitus with microalbuminuria, with long-term current use of insulin ([facility]) Right carpal tunnel syndrome Carpal tunnel syndrome documented in this encounter [facility]* Diagnosis Right wrist pain Pain in joint, forearm Carpal tunnel syndrome, right Carpal tunnel syndrome documented in this encounter [facility]Evaluation note* Diagnosis Mild episode of recurrent major depressive disorder (HCC) ([facility])- Primary Type 2 diabetes mellitus with microalbuminuria, with long-term current use of insulin ([facility]) JOHN (generalized anxiety disorder) ([facility]) Generalized anxiety disorder Migraine without aura and without status migrainosus, not intractable ([facility]) Irritable bowel syndrome with diarrhea Irritable bowel syndrome Gastroesophageal reflux disease without esophagitis Esophageal reflux Hot flashes due to menopause Morbid obesity ([facility]) Morbid obesity long-term (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 insulin (Z79.4) Obesity hypoventilation syndrome ([facility])- Primary Obesity hypoventilation syndrome Hypoxia Hypoxemia Type 2 diabetes mellitus with microalbuminuria, with long-term current use of insulin ([facility]) Right carpal tunnel syndrome Carpal tunnel syndrome Elevated blood-pressure reading without diagnosis of hypertension Elevated blood pressure reading without diagnosis of hypertension Type 2 diabetes mellitus with hyperglycemia, with long-term current use of insulin ([facility])- Primary Mild episode of recurrent major depressive disorder (HCC) (CMS/HCC) JOHN (generalized anxiety disorder) ([facility]/HCC) Generalized anxiety disorder Carpal tunnel syndrome [...] disorder (HCC) (CMS/HCC) JOHN (generalized anxiety disorder) ([facility]) Generalized anxiety disorder Generalized edema 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 Spondylosis of unspecified site without mention of myelopathy 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 elsewhere ([facility]) Acute pain of right knee- Primary Type 2 diabetes mellitus with microalbuminuria, with long-term current use of insulin ([facility]) Right carpal tunnel syndrome Carpal tunnel syndrome Chronic hypoxic respiratory failure ([facility])- Primary Chronic heart failure with preserved ejection fraction (HFpEF) ([facility]) Type 2 diabetes mellitus with hyperglycemia, with long-term current use of insulin ([facility]/HCC) Pulmonary hypertension ([facility]) Other chronic pulmonary heart diseases Colon cancer screening Special screening for malignant neoplasms, colon Gastroesophageal reflux disease without esophagitis Esophageal reflux Mild episode of recurrent major depressive disorder (HCC) (CMS/HCC) documented in this encounter [facility]* Diagnosis Mild episode of recurrent major depressive disorder (HCC) ([facility])- Primary Type 2 diabetes mellitus with microalbuminuria, with long-term current use of insulin ([facility]) JOHN (generalized anxiety disorder) ([facility]) Generalized anxiety disorder Migraine without aura and without status migrainosus, not intractable ([facility]) Irritable bowel syndrome with diarrhea Irritable bowel syndrome Gastroesophageal reflux disease without esophagitis Esophageal reflux Hot flashes due to menopause Morbid obesity (CMS/HCC) 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 (Z79.4) Obesity hypoventilation syndrome ([facility]/HCC)- Primary Obesity hypoventilation syndrome Hypoxia Hypoxemia Type 2 diabetes mellitus with microalbuminuria, with long-term current use of insulin ([facility]/HCC) Right carpal tunnel syndrome Carpal tunnel syndrome Elevated blood-pressure reading without diagnosis of hypertension Elevated blood pressure reading without diagnosis of hypertension Type 2 diabetes mellitus with hyperglycemia, with long-term current use of insulin ([facility])- Primary Mild episode of recurrent major depressive disorder (HCC) ([facility]/HCC) JOHN (generalized anxiety disorder) ([facility]) Generalized anxiety disorder Carpal tunnel syndrome of left wrist Obesity hypoventilation syndrome (CMS/HCC) Obesity hypoventilation syndrome Generalized edema Edema Irritable bowel syndrome with diarrhea Irritable bowel syndrome Gastroesophageal reflux disease without esophagitis Esophageal reflux Anxiety state ([facility]) Anxiety state, unspecified Type 2 diabetes mellitus with hyperglycemia, with long-term current use of insulin ([facility]/HCC)- Primary Right carpal tunnel syndrome Carpal tunnel syndrome Chronic hypoxic respiratory failure ([facility]) Mild episode of recurrent major depressive disorder (HCC) ([facility]) JOHN (generalized anxiety disorder) ([facility]) Generalized anxiety disorder Generalized edema 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 Spondylosis of unspecified site without mention of myelopathy 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 elsewhere ([facility]) Acute pain of right knee- Primary Type 2 diabetes mellitus with microalbuminuria, with long-term current use of insulin ([facility]) Right carpal tunnel syndrome Carpal tunnel syndrome Chronic hypoxic respiratory failure ([facility])- Primary Chronic heart failure with preserved ejection fraction (HFpEF) ([facility]) Type 2 diabetes mellitus with hyperglycemia, with long-term current use of insulin ([facility]) Pulmonary hypertension ([facility]) Other chronic pulmonary heart diseases Colon cancer screening Special screening for malignant neoplasms, colon Gastroesophageal reflux disease without esophagitis Esophageal reflux Type 2 diabetes mellitus with microalbuminuria, with long-term current use of insulin ([facility]) documented in this encounter [facility] HealthcareEvaluation note* Diagnosis Mild episode of recurrent major depressive disorder (HCC) ([facility])- Primary Type 2 diabetes mellitus with microalbuminuria, with long-term current use of insulin ([facility]/HCC) JOHN (generalized anxiety disorder) ([facility]) Generalized anxiety disorder Migraine without aura and without status migrainosus, not intractable ([facility]) Irritable bowel syndrome with diarrhea Irritable bowel syndrome Gastroesophageal reflux disease without esophagitis Esophageal reflux Hot flashes due to menopause Morbid obesity (CMS/HCC) 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 (Z79.4) Obesity hypoventilation syndrome ([facility])- Primary Obesity hypoventilation syndrome Hypoxia Hypoxemia Type 2 diabetes mellitus with microalbuminuria, with long-term current use of insulin ([facility]) Right carpal tunnel syndrome Carpal tunnel syndrome Elevated blood-pressure reading without diagnosis of hypertension Elevated blood pressure reading without diagnosis of hypertension Type 2 diabetes mellitus with hyperglycemia, with long-term current use of insulin ([facility])- Primary Mild episode of recurrent major depressive disorder (HCC) ([facility]) JOHN (generalized anxiety disorder) ([facility]) Generalized anxiety disorder Carpal tunnel syndrome of left wrist Obesity hypoventilation syndrome ([facility]) Obesity hypoventilation syndrome Generalized edema Edema Irritable bowel syndrome with diarrhea Irritable bowel syndrome Gastroesophageal reflux disease without esophagitis Esophageal reflux Anxiety state ([facility]) Anxiety state, unspecified Type 2 diabetes mellitus with hyperglycemia, with long-term current use of insulin ([facility])- Primary Right carpal tunnel syndrome Carpal tunnel syndrome Chronic hypoxic respiratory failure ([facility]) Mild episode of recurrent major depressive disorder (HCC) ([facility]) JOHN (generalized anxiety disorder) ([facility]) Generalized anxiety disorder Generalized edema 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 Spondylosis of unspecified site without mention of myelopathy 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 elsewhere ([facility]) Acute pain of right knee- Primary Type 2 diabetes mellitus with microalbuminuria, with long-term current use of insulin ([facility]) Right carpal tunnel syndrome Carpal tunnel syndrome Chronic hypoxic respiratory failure ([facility])- Primary Chronic heart failure with preserved ejection fraction (HFpEF) ([facility]) Type 2 diabetes mellitus with hyperglycemia, with long-term current use of insulin ([facility]) Pulmonary hypertension ([facility]) Other chronic pulmonary heart diseases Colon cancer screening Special screening for malignant neoplasms, colon Gastroesophageal reflux disease without esophagitis Esophageal reflux Type 2 diabetes mellitus with hyperglycemia, with long-term current use of insulin ([facility]) documented in this encounter [facility] HealthcareEvaluation note* Diagnosis Dyspnea on exertion- Primary Other dyspnea and respiratory abnormality Chronic heart failure with preserved ejection fraction ([facility]) Type 2 diabetes mellitus with hyperglycemia, with long-term current use of insulin ([facility]) [facility] Diagnosis Mild episode of recurrent major depressive disorder (HCC) ([facility])- Primary Type 2 diabetes mellitus with microalbuminuria, with long-term current use of insulin ([facility]) JOHN (generalized anxiety disorder) ([facility]) Generalized anxiety disorder Migraine without aura and without status migrainosus, not intractable (CMS/HCC) Irritable bowel syndrome with diarrhea Irritable bowel syndrome Gastroesophageal reflux disease without esophagitis Esophageal reflux Hot flashes due to menopause Morbid obesity (CMS/HCC) Morbid obesity long-term (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 insulin (Z79.4) Obesity hypoventilation [...] disorder (HCC) (CMS/HCC) JOHN (generalized anxiety disorder) ([facility]) Generalized anxiety disorder Carpal tunnel syndrome of left wrist Obesity hypoventilation syndrome (CMS/HCC) Obesity hypoventilation syndrome Generalized edema Edema Irritable bowel syndrome with diarrhea Irritable bowel syndrome Gastroesophageal reflux disease without esophagitis Esophageal reflux Anxiety state ([facility]) Anxiety state, unspecified Type 2 diabetes mellitus with hyperglycemia, with long-term current use of insulin ([facility]/HCC)- Primary Right carpal tunnel syndrome Carpal tunnel syndrome Chronic hypoxic respiratory failure (CMS/HCC) Mild episode of recurrent major depressive disorder (HCC) ([facility]/HCC) JOHN (generalized anxiety disorder) ([facility]) Generalized anxiety disorder Generalized edema 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 Spondylosis of unspecified site without mention of myelopathy 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 elsewhere ([facility]) Acute pain of right knee- Primary Type 2 diabetes mellitus with microalbuminuria, with long-term current use of insulin ([facility]/HCC) Right carpal tunnel syndrome Carpal tunnel syndrome Chronic hypoxic respiratory failure (CMS/HCC)- Primary Chronic heart failure with preserved ejection fraction (HFpEF) ([facility]/HCC) Type 2 diabetes mellitus with hyperglycemia, with long-term current use of insulin ([facility]/HCC) Pulmonary hypertension ([facility]/HCC) Other chronic pulmonary heart diseases Colon cancer screening Special screening for malignant neoplasms, colon Gastroesophageal reflux disease without esophagitis Esophageal reflux Diabetic polyneuropathy associated with type 2 diabetes mellitus ([facility]/HCC)- Primary Neuritis Unspecified neuralgia, neuritis, and radiculitis documented in this encounter [facility] HealthcareEvaluation note* Diagnosis Cavitary lesion of lung documented [facility] Diagnosis Mediastinal lymphadenopathy- Primary Enlargement of lymph nodes documented in this encounter [facility] Diagnosis Mediastinal lymphadenopathy- Primary Enlargement of lymph nodes Pulmonary nodule Other diseases of lung, not elsewhere classified Morbid obesity ([facility]) Morbid obesity documented in this encounter [facility]* Diagnosis Type 2 diabetes mellitus with hyperglycemia, with long-term current use of insulin ([facility] [facility] [place] Primary Hyperglycemia Other abnormal glucose Acute cystitis without hematuria Hypoxia Hypoxemia Hyperglycemia Other abnormal glucose Obstructive sleep apnea syndrome Obstructive sleep apnea (adult) (pediatric) Severe obesity (BMI >= 40) ([facility] [place]) Hyperlipidemia associated with type 2 diabetes mellitus ([facility] [place]) Acute cystitis without hematuria [facility] Diagnosis Chronic hypoxic respiratory failure ([facility])- Primary Obstructive sleep apnea syndrome Obstructive sleep apnea (adult) (pediatric) Pulmonary nodule Other diseases of lung, not elsewhere classified Moderate persistent asthma without complication [facility] Diagnosis Moderate persistent asthma without complication [facility] Diagnosis Mediastinal lymphadenopathy- Primary Enlargement of lymph nodes Hypoxia Hypoxemia Pulmonary nodule Other diseases of lung, not elsewhere classified Severe obesity (BMI >= 40) ([facility] [place]) Dyspnea on exertion Other dyspnea and respiratory abnormality documented [facility] Diagnosis Dyspnea on exertion- Primary Other dyspnea and respiratory abnormality Chronic hypoxic respiratory failure ([facility] [place]) Moderate persistent asthma without complication documented [facility] Diagnosis Chronic hypoxic respiratory failure ([facility])- Primary SOB (shortness of breath) Shortness of breath Hypoxia Hypoxemia documented [facility]* Diagnosis JOSE M (obstructive sleep apnea)- Primary Obstructive sleep apnea (adult) (pediatric) Chronic hypoxic respiratory failure ([facility]) Severe obesity (BMI >= 40) ([facility] [place]) [facility] Diagnosis Chronic hypoxic respiratory failure ([facility])- Primary SOB (shortness of breath) Shortness of breath Hypoxia Hypoxemia documented [facility]* Diagnosis Moderate persistent asthma without complication- Primary Obstructive sleep apnea syndrome Obstructive sleep apnea (adult) (pediatric) Pulmonary nodule Other diseases of lung, not elsewhere classified Chronic hypoxic respiratory failure ([facility] [place]) [facility] Diagnosis Dyspnea on exertion- Primary Other dyspnea and respiratory abnormality Pulmonary hypertension ([facility]) Other chronic pulmonary heart diseases documented [facility]* Diagnosis JOSE M (obstructive sleep apnea) Obstructive sleep apnea (adult) (pediatric) Chronic hypoxic respiratory failure ([facility]) Severe obesity (BMI >= 40) ([facility] [place]) [facility] Diagnosis Mild episode of recurrent major depressive disorder (HCC) ([facility])- Primary Type 2 diabetes mellitus with microalbuminuria, with long-term current use of insulin ([facility]) JOHN (generalized anxiety disorder) [place] Generalized anxiety disorder Migraine without aura and without status migrainosus, not intractable ([facility] Irritable bowel syndrome with diarrhea Irritable bowel syndrome Gastroesophageal reflux disease without esophagitis Esophageal reflux Hot flashes due to menopause Morbid obesity ([facility]) 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 (Z79.4) Obesity hypoventilation syndrome ([facility])- Primary Obesity hypoventilation syndrome Hypoxia Hypoxemia Type 2 diabetes mellitus with microalbuminuria, with long-term current use of insulin ([facility]) Right carpal tunnel syndrome Carpal tunnel syndrome Elevated blood-pressure reading without diagnosis of hypertension Elevated blood pressure reading without diagnosis of hypertension Type 2 diabetes mellitus with hyperglycemia, with long-term current use of insulin ([facility] Primary Mild episode of recurrent major depressive disorder (HCC) ([facility]) JOHN (generalized anxiety disorder) ([facility] Generalized anxiety disorder Carpal tunnel syndrome of left wrist Obesity hypoventilation syndrome ([facility]) Obesity hypoventilation syndrome Generalized edema Edema Irritable bowel syndrome with diarrhea Irritable bowel syndrome Gastroesophageal reflux disease without esophagitis Esophageal reflux Anxiety state ([facility]) Anxiety state, unspecified Type 2 diabetes mellitus with hyperglycemia, with long-term current use of insulin ([facility] Primary Right carpal tunnel syndrome Carpal tunnel syndrome Chronic hypoxic respiratory failure ([facility]) Mild episode of recurrent major depressive disorder (HCC) ([facility]) JOHN (generalized anxiety disorder) ([facility]) Generalized anxiety disorder Generalized edema 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 Spondylosis of unspecified site without mention of myelopathy 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 elsewhere ([facility]) Acute pain of right knee- Primary Type 2 diabetes mellitus with microalbuminuria, with long-term current use of insulin ([facility]) Right carpal tunnel syndrome Carpal tunnel syndrome Chronic hypoxic respiratory failure (CMS/HCC)- Primary Chronic heart failure with preserved ejection fraction (HFpEF) ([facility]) Type 2 diabetes mellitus with hyperglycemia, with long-term current use of insulin ([facility]) Pulmonary hypertension ([facility]) Other chronic pulmonary heart diseases Colon cancer screening Special screening for malignant neoplasms, colon Gastroesophageal reflux disease without esophagitis Esophageal reflux Dehydration- Primary Nausea and vomiting, unspecified vomiting type Type 2 diabetes mellitus with hyperglycemia, with long-term current use of insulin ([facility]) Class 3 severe obesity due to excess calories with serious comorbidity and body mass index (BMI) of 40.0 to 44.9 in adult ([facility]) Chronic hypoxic respiratory failure (CMS/HCC) Chronic heart failure with preserved ejection fraction (HFpEF) ([facility]) documented in this encounter [facility]* Diagnosis Mild episode of recurrent major depressive disorder (HCC) ([facility])- Primary Type 2 diabetes mellitus with microalbuminuria, with long-term current use of insulin ([facility]) JOHN (generalized anxiety disorder) ([facility]) Generalized anxiety disorder Migraine without aura and without status migrainosus, not intractable ([facility]) Irritable bowel syndrome with diarrhea Irritable bowel syndrome Gastroesophageal reflux disease without esophagitis Esophageal reflux Hot flashes due to menopause Morbid obesity ([facility]) Morbid obesity long-term (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 insulin (Z79.4) Obesity hypoventilation syndrome ([facility])- Primary Obesity hypoventilation syndrome Hypoxia Hypoxemia Type 2 diabetes mellitus with microalbuminuria, with long-term current use of insulin ([facility]) Right carpal tunnel syndrome Carpal tunnel syndrome Elevated blood-pressure reading without diagnosis of hypertension Elevated blood pressure reading without diagnosis of hypertension Type 2 diabetes mellitus with hyperglycemia, with long-term current use of insulin ([facility])- Primary Mild episode of recurrent major depressive disorder (HCC) ([facility]) JOHN (generalized anxiety disorder) ([facility]) Generalized anxiety disorder Carpal tunnel syndrome of left wrist Obesity hypoventilation syndrome ([facility]) Obesity hypoventilation syndrome Generalized edema Edema Irritable bowel syndrome with diarrhea Irritable bowel syndrome Gastroesophageal reflux disease without esophagitis Esophageal reflux Anxiety state ([facility]) Anxiety state, unspecified Type 2 diabetes mellitus with hyperglycemia, with long-term current use of insulin ([facility])- Primary Right carpal tunnel syndrome Carpal tunnel syndrome Chronic hypoxic respiratory failure ([facility]) Mild episode of recurrent major depressive disorder (HCC) ([facility]) JOHN (generalized anxiety disorder) ([facility]) Generalized anxiety disorder Generalized edema 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 Spondylosis of unspecified site without mention of myelopathy 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 elsewhere ([facility]) Acute pain of right knee- Primary Type 2 diabetes mellitus with microalbuminuria, with long-term current use of insulin ([facility]) Right carpal tunnel syndrome Carpal tunnel syndrome Chronic hypoxic respiratory failure ([facility])- Primary Chronic heart failure with preserved ejection fraction (HFpEF) ([facility]) Type 2 diabetes mellitus with hyperglycemia, with long-term current use of insulin ([facility]) Pulmonary hypertension ([facility]) Other chronic pulmonary heart diseases Colon cancer screening Special screening for malignant neoplasms, colon Gastroesophageal reflux disease without esophagitis Esophageal reflux Dehydration- Primary Nausea and vomiting, unspecified vomiting type Type 2 diabetes mellitus with hyperglycemia, with long-term current use of insulin ([facility]) Class 3 severe obesity due to excess calories with serious comorbidity and body mass index (BMI) of 40.0 to 44.9 in adult ([facility]) Chronic hypoxic respiratory failure ([facility]) Chronic heart failure with preserved ejection fraction (HFpEF) ([facility]) Type 2 diabetes mellitus with hyperglycemia, with long-term current use of insulin ([facility])- Primary Chronic heart failure with preserved ejection fraction (HFpEF) ([facility]) Mild episode of recurrent major depressive disorder (HCC) ([facility]) JOHN (generalized anxiety disorder) ([facility]) Generalized anxiety disorder Gastroesophageal reflux disease without esophagitis Esophageal reflux Class 3 severe obesity due to excess calories with serious comorbidity and body mass index (BMI) of 40.0 to 44.9 in adult ([facility]) documented in this encounter [facility]* Diagnosis Obstructive sleep apnea syndrome- Primary Obstructive sleep apnea (adult) (pediatric) Noncompliance with CPAP treatment Chronic hypoxic respiratory failure, on home oxygen therapy ([facility] [place]) Obesity, Class III, BMI 40-49.9 (morbid obesity) ([facility] [place]) [facility] Diagnosis Chronic heart failure with preserved ejection fraction ([facility])- Primary Primary hypertension Unspecified essential hypertension Dyspnea on exertion Other dyspnea and respiratory abnormality Hyperlipidemia associated with type 2 diabetes mellitus ([facility]) [facility] Diagnosis Mild episode of recurrent major depressive disorder (HCC) ([facility])- Primary Type 2 diabetes mellitus with microalbuminuria, with long-term current use of insulin ([facility]) JOHN (generalized anxiety disorder) ([facility]) Generalized anxiety disorder Migraine without aura and without status migrainosus, not intractable ([facility]) Irritable bowel syndrome with diarrhea Irritable bowel syndrome Gastroesophageal reflux disease without esophagitis Esophageal reflux Hot flashes due to menopause Morbid obesity ([facility]) 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 (Z79.4) Obesity hypoventilation syndrome ([facility])- Primary Obesity hypoventilation syndrome Hypoxia Hypoxemia Type 2 diabetes mellitus with microalbuminuria, with long-term current use of insulin ([facility]) Right carpal tunnel syndrome Carpal tunnel syndrome Elevated blood-pressure reading without diagnosis of hypertension Elevated blood pressure reading without diagnosis of hypertension Type 2 diabetes mellitus with hyperglycemia, with long-term current use of insulin ([facility])- Primary Mild episode of recurrent major depressive disorder (HCC) ([facility]) JOHN (generalized anxiety disorder) ([facility]) Generalized anxiety disorder Carpal tunnel syndrome of left wrist Obesity hypoventilation syndrome ([facility]) Obesity hypoventilation syndrome Generalized edema Edema Irritable bowel syndrome with diarrhea Irritable bowel syndrome Gastroesophageal reflux disease without esophagitis Esophageal reflux Anxiety state ([facility]) Anxiety state, unspecified Type 2 diabetes mellitus with hyperglycemia, with long-term current use of insulin ([facility])- Primary Right carpal tunnel syndrome Carpal tunnel syndrome Chronic hypoxic respiratory failure ([facility]) Mild episode of recurrent major depressive disorder (HCC) ([facility]) JOHN (generalized anxiety disorder) ([facility]) Generalized anxiety disorder Generalized edema 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 Spondylosis of unspecified site without mention of myelopathy 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 elsewhere ([facility]) Acute pain of right knee- Primary Type 2 diabetes mellitus with microalbuminuria, with long-term current use of insulin ([facility]) Right carpal tunnel syndrome Carpal tunnel syndrome Chronic hypoxic respiratory failure ([facility])- Primary Chronic heart failure with preserved ejection fraction (HFpEF) ([facility]) Type 2 diabetes mellitus with hyperglycemia, with long-term current use of insulin ([facility]) Pulmonary hypertension ([facility]) Other chronic pulmonary heart diseases Colon cancer screening Special screening for malignant neoplasms, colon Gastroesophageal reflux disease without esophagitis Esophageal reflux Dehydration- Primary Nausea and vomiting, unspecified vomiting type Type 2 diabetes mellitus with hyperglycemia, with long-term current use of insulin ([facility]) Class 3 severe obesity due to excess calories with serious comorbidity and body mass index (BMI) of 40.0 to 44.9 in adult Chronic hypoxic respiratory failure ([facility]) Chronic heart failure with preserved ejection fraction (HFpEF) ([facility]) Type 2 diabetes mellitus with hyperglycemia, with long-term current use of insulin ([facility])- Primary Chronic heart failure with preserved ejection fraction (HFpEF) ([facility]) Mild episode of recurrent major depressive disorder (HCC) ([facility]) JOHN (generalized anxiety disorder) ([facility]) Generalized anxiety disorder Gastroesophageal reflux disease without esophagitis Esophageal reflux Class 3 severe obesity due to excess calories with serious comorbidity and body mass index (BMI) of 40.0 to 44.9 in adult Type 2 diabetes mellitus with hyperglycemia, with long-term current use of insulin ([facility])- Primary Benign essential hypertension ([facility]) Essential hypertension, benign Mild episode of recurrent major depressive disorder (HCC) ([facility]) JOHN (generalized anxiety disorder) ([facility]) Generalized anxiety disorder Chronic heart failure with preserved ejection fraction (HFpEF) ([facility]) Type 2 diabetes mellitus with microalbuminuria, with long-term current use of insulin ([facility]) Class 3 severe obesity due to excess calories with serious comorbidity and body mass index (BMI) of 40.0 to 44.9 in adult Encounter for long-term (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 medications Encounter for long-term (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 other medications Dyslipidemia ([facility]) Other and unspecified hyperlipidemia Primary osteoarthritis of both knees documented in this encounter [facility]* Diagnosis Mild episode of recurrent major depressive disorder- Primary Type 2 diabetes mellitus with microalbuminuria, with long-term current use of insulin ([facility]) JOHN (generalized anxiety disorder) Generalized anxiety disorder Migraine without aura and without status migrainosus, not intractable Irritable bowel syndrome with diarrhea Irritable bowel syndrome Gastroesophageal reflux disease without esophagitis Esophageal reflux Hot flashes due to menopause Morbid obesity ([facility]) Morbid obesity long-term (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 insulin (Z79.4) Obesity hypoventilation syndrome ([facility])- Primary Obesity hypoventilation syndrome Hypoxia Hypoxemia Type 2 diabetes mellitus with microalbuminuria, with long-term current use of insulin (HCC) Right carpal tunnel syndrome Carpal tunnel syndrome Elevated blood-pressure reading without diagnosis of hypertension Elevated blood pressure reading without diagnosis of hypertension Type 2 diabetes mellitus with hyperglycemia, with long-term current use of insulin ([facility])- Primary Mild episode of recurrent major depressive disorder JOHN (generalized anxiety disorder) Generalized anxiety disorder Carpal tunnel syndrome of left wrist Obesity hypoventilation syndrome ([facility]) Obesity hypoventilation syndrome Generalized edema Edema Irritable bowel syndrome with diarrhea Irritable bowel syndrome Gastroesophageal reflux disease without esophagitis Esophageal reflux Anxiety state Anxiety state, unspecified Type 2 diabetes mellitus with hyperglycemia, with long-term current use of insulin ([facility])- Primary Right carpal tunnel syndrome Carpal tunnel syndrome Chronic hypoxic respiratory failure (HCC) Mild episode of recurrent major depressive disorder JOHN (generalized anxiety disorder) Generalized anxiety disorder Generalized edema 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 Spondylosis of unspecified site without mention of myelopathy 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 elsewhere ([facility]) Acute pain of right knee- Primary Type 2 diabetes mellitus with microalbuminuria, with long-term current use of insulin ([facility]) Right carpal tunnel syndrome Carpal tunnel syndrome Chronic hypoxic respiratory failure ([facility])- Primary Chronic heart failure with preserved ejection fraction (HFpEF) ([facility]) Type 2 diabetes mellitus with hyperglycemia, with long-term current use of insulin ([facility]) Pulmonary hypertension (HCC) Other chronic pulmonary heart diseases Colon cancer screening Special screening for malignant neoplasms, colon Gastroesophageal reflux disease without esophagitis Esophageal reflux Dehydration- Primary Nausea and vomiting, unspecified vomiting type Type 2 diabetes mellitus with hyperglycemia, with long-term current use of insulin ([facility]) Class 3 severe obesity due to excess calories with serious comorbidity and body mass index (BMI) of 40.0 to 44.9 in adult ([facility]) Chronic hypoxic respiratory failure (HCC) Chronic heart failure with preserved ejection fraction (HFpEF) ([facility]) Type 2 diabetes mellitus with hyperglycemia, with long-term current use of insulin ([facility])- Primary Chronic heart failure with preserved ejection fraction (HFpEF) ([facility]) Mild episode of recurrent major depressive disorder JOHN (generalized anxiety disorder) Generalized anxiety disorder Gastroesophageal reflux disease without esophagitis Esophageal reflux Class 3 severe obesity due to excess calories with serious comorbidity and body mass index (BMI) of 40.0 to 44.9 in adult ([facility] [place]) Type 2 diabetes mellitus with hyperglycemia, with long-term current use of insulin ([facility])- Primary Benign essential hypertension Essential hypertension, benign Mild episode of recurrent major depressive disorder JOHN (generalized anxiety disorder) Generalized anxiety disorder Chronic heart failure with preserved ejection fraction (HFpEF) ([facility]) Type 2 diabetes mellitus with microalbuminuria, with long-term current use of insulin ([facility]) Class 3 severe obesity due to excess calories with serious comorbidity and body mass index (BMI) of 40.0 to 44.9 in adult ([facility] [place]) Encounter for long-term (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 medications Encounter for long-term (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 other medications Dyslipidemia Other and unspecified hyperlipidemia Primary osteoarthritis of both knees Internal derangement of left knee- Primary Acute pain of left knee documented in this encounter [facility]* Diagnosis Type 2 diabetes mellitus with hyperglycemia, with long-term current use of insulin ([facility] [place] Primary [facility] Diagnosis Moderate persistent asthma without complication- Primary Chronic hypoxic respiratory failure ([facility] [place]) [facility] Diagnosis Mild episode of recurrent major depressive disorder- Primary Type 2 diabetes mellitus with microalbuminuria, with long-term current use of insulin ([facility]) JOHN (generalized anxiety disorder) Generalized anxiety disorder Migraine without aura and without status migrainosus, not intractable Irritable bowel syndrome with diarrhea Irritable bowel syndrome Gastroesophageal reflux disease without esophagitis Esophageal reflux Hot flashes due to menopause Morbid obesity ([facility]) Morbid obesity long-term (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 insulin (Z79.4) Obesity hypoventilation syndrome ([facility])- Primary Obesity hypoventilation syndrome Hypoxia Hypoxemia Type 2 diabetes mellitus with microalbuminuria, with long-term current use of insulin ([facility]) Right carpal tunnel syndrome Carpal tunnel syndrome Elevated blood-pressure reading without diagnosis of hypertension Elevated blood pressure reading without diagnosis of hypertension Type 2 diabetes mellitus with hyperglycemia, with long-term current use of insulin ([facility])- Primary Mild episode of recurrent major depressive disorder JOHN (generalized anxiety disorder) Generalized anxiety disorder Carpal tunnel syndrome of left wrist Obesity hypoventilation syndrome ([facility]) Obesity hypoventilation syndrome Generalized edema Edema Irritable bowel syndrome with diarrhea Irritable bowel syndrome Gastroesophageal reflux disease without esophagitis Esophageal reflux Anxiety state Anxiety state, unspecified Type 2 diabetes mellitus with hyperglycemia, with long-term current use of insulin ([facility])- Primary Right carpal tunnel syndrome Carpal tunnel syndrome Chronic hypoxic respiratory failure ([facility]) Mild episode of recurrent major depressive disorder JOHN (generalized anxiety disorder) Generalized anxiety disorder Generalized edema 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 Spondylosis of unspecified site without mention of myelopathy 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 elsewhere ([facility]) Acute pain of right knee- Primary Type 2 diabetes mellitus with microalbuminuria, with long-term current use of insulin ([facility]) Right carpal tunnel syndrome Carpal tunnel syndrome Chronic hypoxic respiratory failure ([facility])- Primary Chronic heart failure with preserved ejection fraction (HFpEF) ([facility]) Type 2 diabetes mellitus with hyperglycemia, with long-term current use of insulin ([facility]) Pulmonary hypertension ([facility]) Other chronic pulmonary heart diseases Colon cancer screening Special screening for malignant neoplasms, colon Gastroesophageal reflux disease without esophagitis Esophageal reflux Dehydration- Primary Nausea and vomiting, unspecified vomiting type Type 2 diabetes mellitus with hyperglycemia, with long-term current use of insulin ([facility]) Class 3 severe obesity due to excess calories with serious comorbidity and body mass index (BMI) of 40.0 to 44.9 in adult ([facility]) Chronic hypoxic respiratory failure ([facility]) Chronic heart failure with preserved ejection fraction (HFpEF) ([facility]) Type 2 diabetes mellitus with hyperglycemia, with long-term current use of insulin ([facility])- Primary Chronic heart failure with preserved ejection fraction (HFpEF) ([facility]) Mild episode of recurrent major depressive disorder JOHN (generalized anxiety disorder) Generalized anxiety disorder Gastroesophageal reflux disease without esophagitis Esophageal reflux Class 3 severe obesity due to excess calories with serious comorbidity and body mass index (BMI) of 40.0 to 44.9 in adult ([facility]) Type 2 diabetes mellitus with hyperglycemia, with long-term current use of insulin ([facility])- Primary Benign essential hypertension Essential hypertension, benign Mild episode of recurrent major depressive disorder JOHN (generalized anxiety disorder) Generalized anxiety disorder Chronic heart failure with preserved ejection fraction (HFpEF) ([facility]) Type 2 diabetes mellitus with microalbuminuria, with long-term current use of insulin ([facility]) Class 3 severe obesity due to excess calories with serious comorbidity and body mass index (BMI) of 40.0 to 44.9 in adult ([facility]) Encounter for long-term (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 medications Encounter for long-term (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 other medications Dyslipidemia Other and unspecified hyperlipidemia Primary osteoarthritis of both knees Genital warts Condyloma acuminatum documented in this encounter [facility]* Diagnosis Mild episode of recurrent major depressive disorder- Primary Type 2 diabetes mellitus with microalbuminuria, with long-term current use of insulin ([facility]) JOHN (generalized anxiety disorder) Generalized anxiety disorder Migraine without aura and without status migrainosus, not intractable Irritable bowel syndrome with diarrhea Irritable bowel syndrome Gastroesophageal reflux disease without esophagitis Esophageal reflux Hot flashes due to menopause Morbid obesity ([facility]) 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 (Z79.4) Obesity hypoventilation syndrome ([facility])- Primary Obesity hypoventilation syndrome Hypoxia Hypoxemia Type 2 diabetes mellitus with microalbuminuria, with long-term current use of insulin (H[facility]) Right carpal tunnel syndrome Carpal tunnel syndrome Elevated blood-pressure reading without diagnosis of hypertension Elevated blood pressure reading without diagnosis of hypertension Type 2 diabetes mellitus with hyperglycemia, with long-term current use of insulin ([facility])- Primary Mild episode of recurrent major depressive disorder JONH (generalized anxiety disorder) Generalized anxiety disorder Carpal tunnel syndrome of left wrist Obesity hypoventilation syndrome ([facility]) Obesity hypoventilation syndrome Generalized edema Edema Irritable bowel syndrome with diarrhea Irritable bowel syndrome Gastroesophageal reflux disease without esophagitis Esophageal reflux Anxiety state Anxiety state, unspecified Type 2 diabetes mellitus with hyperglycemia, with long-term current use of insulin ([facility])- Primary Right carpal tunnel syndrome Carpal tunnel syndrome Chronic hypoxic respiratory failure ([facility]) Mild episode of recurrent major depressive disorder JOHN (generalized anxiety disorder) Generalized anxiety disorder Generalized edema 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 Spondylosis of unspecified site without mention of myelopathy 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 elsewhere ([facility]) Acute pain of right knee- Primary Type 2 diabetes mellitus with microalbuminuria, with long-term current use of insulin ([facility]) Right carpal tunnel syndrome Carpal tunnel syndrome Chronic hypoxic respiratory failure (HCC)- Primary Chronic heart failure with preserved ejection fraction (HFpEF) ([facility]) Type 2 diabetes mellitus with hyperglycemia, with long-term current use of insulin ([facility]) Pulmonary hypertension ([facility]) Other chronic pulmonary heart diseases Colon cancer screening Special screening for malignant neoplasms, colon Gastroesophageal reflux disease without esophagitis Esophageal reflux Dehydration- Primary Nausea and vomiting, unspecified vomiting type Type 2 diabetes mellitus with hyperglycemia, with long-term current use of insulin ([facility]) Class 3 severe obesity due to excess calories with serious comorbidity and body mass index (BMI) of 40.0 to 44.9 in adult ([facility]) Chronic hypoxic respiratory failure (HCC) Chronic heart failure with preserved ejection fraction (HFpEF) ([facility]) Type 2 diabetes mellitus with hyperglycemia, with long-term current use of insulin ([facility])- Primary Chronic heart failure with preserved ejection fraction (HFpEF) ([facility]) Mild episode of recurrent major depressive disorder JOHN (generalized anxiety disorder) Generalized anxiety disorder Gastroesophageal reflux disease without esophagitis Esophageal reflux Class 3 severe obesity due to excess calories with serious comorbidity and body mass index (BMI) of 40.0 to 44.9 in adult ([facility]) Type 2 diabetes mellitus with hyperglycemia, with long-term current use of insulin ([facility])- Primary Benign essential hypertension Essential hypertension, benign Mild episode of recurrent major depressive disorder JOHN (generalized anxiety disorder) Generalized anxiety disorder Chronic heart failure with preserved ejection fraction (HFpEF) ([facility]) Type 2 diabetes mellitus with microalbuminuria, with long-term current use of insulin ([facility]) Class 3 severe obesity due to excess calories with serious comorbidity and body mass index (BMI) of 40.0 to 44.9 in adult ([facility]) Encounter for long-term (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 medications Encounter for long-term (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 other medications Dyslipidemia Other and unspecified hyperlipidemia Primary osteoarthritis of both knees Acute pain of left knee- Primary documented in this encounter [facility]* Diagnosis Mild episode of recurrent major depressive disorder- Primary Type 2 diabetes mellitus with microalbuminuria, with long-term current use of insulin ([facility]) JOHN (generalized anxiety disorder) Generalized anxiety disorder Migraine without aura and without status migrainosus, not intractable Irritable bowel syndrome with diarrhea Irritable bowel syndrome Gastroesophageal reflux disease without esophagitis Esophageal reflux Hot flashes due to menopause Morbid obesity ([facility]) Morbid obesity long-term (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 insulin (Z79.4) Obesity hypoventilation syndrome ([facility])- Primary Obesity hypoventilation syndrome Hypoxia Hypoxemia Type 2 diabetes mellitus with microalbuminuria, with long-term current use of insulin ([facility]) Right carpal tunnel syndrome Carpal tunnel syndrome Elevated blood-pressure reading without diagnosis of hypertension Elevated blood pressure reading without diagnosis of hypertension Type 2 diabetes mellitus with hyperglycemia, with long-term current use of insulin ([facility])- Primary Mild episode of recurrent major depressive disorder JOHN (generalized anxiety disorder) Generalized anxiety disorder Carpal tunnel syndrome of left wrist Obesity hypoventilation syndrome ([facility]) Obesity hypoventilation syndrome Generalized edema Edema Irritable bowel syndrome with diarrhea Irritable bowel syndrome Gastroesophageal reflux disease without esophagitis Esophageal reflux Anxiety state Anxiety state, unspecified Type 2 diabetes mellitus with hyperglycemia, with long-term current use of insulin ([facility])- Primary Right carpal tunnel syndrome Carpal tunnel syndrome Chronic hypoxic respiratory failure ([facility]) Mild episode of recurrent major depressive disorder JOHN (generalized anxiety disorder) Generalized anxiety disorder Generalized edema 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 Spondylosis of unspecified site without mention of myelopathy 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 elsewhere ([facility]) Acute pain of right knee- Primary Type 2 diabetes mellitus with microalbuminuria, with long-term current use of insulin ([facility]) Right carpal tunnel syndrome Carpal tunnel syndrome Chronic hypoxic respiratory failure ([facility])- Primary Chronic heart failure with preserved ejection fraction (HFpEF) ([facility]) Type 2 diabetes mellitus with hyperglycemia, with long-term current use of insulin ([facility]) Pulmonary hypertension ([facility]) Other chronic pulmonary heart diseases Colon cancer screening Special screening for malignant neoplasms, colon Gastroesophageal reflux disease without esophagitis Esophageal reflux Dehydration- Primary Nausea and vomiting, unspecified vomiting type Type 2 diabetes mellitus with hyperglycemia, with long-term current use of insulin ([facility]) Class 3 severe obesity due to excess calories with serious comorbidity and body mass index (BMI) of 40.0 to 44.9 in adult ([facility]) Chronic hypoxic respiratory failure ([facility]) Chronic heart failure with preserved ejection fraction (HFpEF) ([facility]) Type 2 diabetes mellitus with hyperglycemia, with long-term current use of insulin ([facility])- Primary Chronic heart failure with preserved ejection fraction (HFpEF) ([facility]) Mild episode of recurrent major depressive disorder JOHN (generalized anxiety disorder) Generalized anxiety disorder Gastroesophageal reflux disease without esophagitis Esophageal reflux Class 3 severe obesity due to excess calories with serious comorbidity and body mass index (BMI) of 40.0 to 44.9 in adult ([facility]) Type 2 diabetes mellitus with hyperglycemia, with long-term current use of insulin ([facility])- Primary Benign essential hypertension Essential hypertension, benign Mild episode of recurrent major depressive disorder JOHN (generalized anxiety disorder) Generalized anxiety disorder Chronic heart failure with preserved ejection fraction (HFpEF) ([facility]) Type 2 diabetes mellitus with microalbuminuria, with long-term current use of insulin ([facility]) Class 3 severe obesity due to excess calories with serious comorbidity and body mass index (BMI) of 40.0 to 44.9 in adult ([facility]) Encounter for long-term (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 medications Encounter for long-term (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 other medications Dyslipidemia Other and unspecified hyperlipidemia Primary osteoarthritis of both knees Acute medial meniscus tear of left knee, initial encounter- Primary Acute pain of left knee documented in this encounter [facility]* Diagnosis Mild episode of recurrent major depressive disorder- Primary Type 2 diabetes mellitus with microalbuminuria, with long-term current use of insulin ([facility]) JOHN (generalized anxiety disorder) Generalized anxiety disorder Migraine without aura and without status migrainosus, not intractable Irritable bowel syndrome with diarrhea Irritable bowel syndrome Gastroesophageal reflux disease without esophagitis Esophageal reflux Hot flashes due to menopause Morbid obesity ([facility]) Morbid obesity long-term (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 insulin (Z79.4) Obesity hypoventilation syndrome ([facility])- Primary Obesity hypoventilation syndrome Hypoxia Hypoxemia Type 2 diabetes mellitus with microalbuminuria, with long-term current use of insulin ([facility]) Right carpal tunnel syndrome Carpal tunnel syndrome Elevated blood-pressure reading without diagnosis of hypertension Elevated blood pressure reading without diagnosis of hypertension Type 2 diabetes mellitus with hyperglycemia, with long-term current use of insulin ([facility])- Primary Mild episode of recurrent major depressive disorder JOHN (generalized anxiety disorder) Generalized anxiety disorder Carpal tunnel syndrome of left wrist Obesity hypoventilation syndrome ([facility]) Obesity hypoventilation syndrome Generalized edema Edema Irritable [...] microalbuminuria, with long-term current use of insulin ([facility]) Right carpal tunnel syndrome Carpal tunnel syndrome Chronic hypoxic respiratory failure (HCC)- Primary Chronic heart failure with preserved ejection fraction (HFpEF) ([facility]) Type 2 diabetes mellitus with hyperglycemia, with long-term current use of insulin ([facility]) Pulmonary hypertension (HCC) Other chronic pulmonary heart diseases Colon cancer screening Special screening for malignant neoplasms, colon Gastroesophageal reflux disease without esophagitis Esophageal reflux Dehydration- Primary Nausea and vomiting, unspecified vomiting type Type 2 diabetes mellitus with hyperglycemia, with long-term current use of insulin ([facility]) Class 3 severe obesity due to excess calories with serious comorbidity and body mass index (BMI) of 40.0 to 44.9 in adult ([facility]) Chronic hypoxic respiratory failure ([facility]) Chronic heart failure with preserved ejection fraction (HFpEF) ([facility]) Type 2 diabetes mellitus with hyperglycemia, with long-term current use of insulin ([facility])- Primary Chronic heart failure with preserved ejection fraction (HFpEF) ([facility]) Mild episode of recurrent major depressive disorder JOHN (generalized anxiety disorder) Generalized anxiety disorder Gastroesophageal reflux disease without esophagitis Esophageal reflux Class 3 severe obesity due to excess calories with serious comorbidity and body mass index (BMI) of 40.0 to 44.9 in adult ([facility]) Type 2 diabetes mellitus with hyperglycemia, with long-term current use of insulin ([facility])- Primary Benign essential hypertension Essential hypertension, benign Mild episode of recurrent major depressive disorder JOHN (generalized anxiety disorder) Generalized anxiety disorder Chronic heart failure with preserved ejection fraction (HFpEF) ([facility]) Type 2 diabetes mellitus with microalbuminuria, with long-term current use of insulin ([facility]) Class 3 severe obesity due to excess calories with serious comorbidity and body mass index (BMI) of 40.0 to 44.9 in adult ([facility]) Encounter for long-term (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 medications Encounter for long-term (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 other medications Dyslipidemia Other and unspecified hyperlipidemia Primary osteoarthritis of both knees Acute pain of left knee- Primary documented in this encounter [facility]* Diagnosis Mild episode of recurrent major depressive disorder- Primary Type 2 diabetes mellitus with microalbuminuria, with long-term current use of insulin ([facility]) JOHN (generalized anxiety disorder) Generalized anxiety disorder Migraine without aura and without status migrainosus, not intractable Irritable bowel syndrome with diarrhea Irritable bowel syndrome Gastroesophageal reflux disease without esophagitis Esophageal reflux Hot flashes due to menopause Morbid obesity ([facility]) 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 (Z79.4) Obesity hypoventilation syndrome ([facility])- Primary Obesity hypoventilation syndrome Hypoxia Hypoxemia Type 2 diabetes mellitus with microalbuminuria, with long-term current use of insulin ([facility]) Right carpal tunnel syndrome Carpal tunnel syndrome Elevated blood-pressure reading without diagnosis of hypertension Elevated blood pressure reading without diagnosis of hypertension Type 2 diabetes mellitus with hyperglycemia, with long-term current use of insulin ([facility])- Primary Mild episode of recurrent major depressive disorder JOHN (generalized anxiety disorder) Generalized anxiety disorder Carpal tunnel syndrome of left wrist Obesity hypoventilation syndrome ([facility]) Obesity hypoventilation syndrome Generalized edema Edema Irritable bowel syndrome with diarrhea Irritable bowel syndrome Gastroesophageal reflux disease without esophagitis Esophageal reflux Anxiety state Anxiety state, unspecified Type 2 diabetes mellitus with hyperglycemia, with long-term current use of insulin ([facility])- Primary Right carpal tunnel syndrome Carpal tunnel syndrome Chronic hypoxic respiratory failure ([facility]) Mild episode of recurrent major depressive disorder JOHN (generalized anxiety disorder) Generalized anxiety disorder Generalized edema 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 Spondylosis of unspecified site without mention of myelopathy 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 elsewhere ([facility]) Acute pain of right knee- Primary Type 2 diabetes mellitus with microalbuminuria, with long-term current use of insulin ([facility]) Right carpal tunnel syndrome Carpal tunnel syndrome Chronic hypoxic respiratory failure ([facility])- Primary Chronic heart failure with preserved ejection fraction (HFpEF) ([facility]) Type 2 diabetes mellitus with hyperglycemia, with long-term current use of insulin ([facility]) Pulmonary hypertension ([facility]) Other chronic pulmonary heart diseases Colon cancer screening Special screening for malignant neoplasms, colon Gastroesophageal reflux disease without esophagitis Esophageal reflux Dehydration- Primary Nausea and vomiting, unspecified vomiting type Type 2 diabetes mellitus with hyperglycemia, with long-term current use of insulin ([facility]) Class 3 severe obesity due to excess calories with serious comorbidity and body mass index (BMI) of 40.0 to 44.9 in adult ([facility]) Chronic hypoxic respiratory failure ([facility]) Chronic heart failure with preserved ejection fraction (HFpEF) ([facility]) Type 2 diabetes mellitus with hyperglycemia, with long-term current use of insulin ([facility])- Primary Chronic heart failure with preserved ejection fraction (HFpEF) ([facility]) Mild episode of recurrent major depressive disorder JOHN (generalized anxiety disorder) Generalized anxiety disorder Gastroesophageal reflux disease without esophagitis Esophageal reflux Class 3 severe obesity due to excess calories with serious comorbidity and body mass index (BMI) of 40.0 to 44.9 in adult ([facility]) Type 2 diabetes mellitus with hyperglycemia, with long-term current use of insulin ([facility])- Primary Benign essential hypertension Essential hypertension, benign Mild episode of recurrent major depressive disorder JOHN (generalized anxiety disorder) Generalized anxiety disorder Chronic heart failure with preserved ejection fraction (HFpEF) ([facility]) Type 2 diabetes mellitus with microalbuminuria, with long-term current use of insulin ([facility]) Class 3 severe obesity due to excess calories with serious comorbidity and body mass index (BMI) of 40.0 to 44.9 in adult ([facility]) Encounter for long-term (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 medications Encounter for long-term (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 other medications Dyslipidemia Other and unspecified hyperlipidemia Primary osteoarthritis of both knees Acute pain of left knee- Primary documented in this encounter [facility]* Diagnosis Mild episode of recurrent major depressive disorder- Primary Type 2 diabetes mellitus with microalbuminuria, with long-term current use of insulin ([facility]) JOHN (generalized anxiety disorder) Generalized anxiety disorder Migraine without aura and without status migrainosus, not intractable Irritable bowel syndrome with diarrhea Irritable bowel syndrome Gastroesophageal reflux disease without esophagitis Esophageal reflux Hot flashes due to menopause Morbid obesity ([facility]) 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 (Z79.4) Obesity hypoventilation syndrome ([facility] Primary Obesity hypoventilation syndrome Hypoxia Hypoxemia Type 2 diabetes mellitus with microalbuminuria, with long-term current use of insulin ([facility]) Right carpal tunnel syndrome Carpal tunnel syndrome Elevated blood-pressure reading without diagnosis of hypertension Elevated blood pressure reading without diagnosis of hypertension Type 2 diabetes mellitus with hyperglycemia, with long-term current use of insulin ([facility])- Primary Mild episode of recurrent major depressive disorder JOHN (generalized anxiety disorder) Generalized anxiety disorder Carpal tunnel syndrome of left wrist Obesity hypoventilation syndrome ([facility]) Obesity hypoventilation syndrome Generalized edema Edema Irritable bowel syndrome with diarrhea Irritable bowel syndrome Gastroesophageal reflux disease without esophagitis Esophageal reflux Anxiety state Anxiety state, unspecified Type 2 diabetes mellitus with hyperglycemia, with long-term current use of insulin ([facility])- Primary Right carpal tunnel syndrome Carpal tunnel syndrome Chronic hypoxic respiratory failure ([facility]) Mild episode of recurrent major depressive disorder JOHN (generalized anxiety disorder) Generalized anxiety disorder Generalized edema 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 Spondylosis of unspecified site without mention of myelopathy 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 elsewhere ([facility]) Acute pain of right knee- Primary Type 2 diabetes mellitus with microalbuminuria, with long-term current use of insulin ([facility]) Right carpal tunnel syndrome Carpal tunnel syndrome Chronic hypoxic respiratory failure ([facility])- Primary Chronic heart failure with preserved ejection fraction (HFpEF) ([facility]) Type 2 diabetes mellitus with hyperglycemia, with long-term current use of insulin ([facility]) Pulmonary hypertension ([facility]) Other chronic pulmonary heart diseases Colon cancer screening Special screening for malignant neoplasms, colon Gastroesophageal reflux disease without esophagitis Esophageal reflux Dehydration- Primary Nausea and vomiting, unspecified vomiting type Type 2 diabetes mellitus with hyperglycemia, with long-term current use of insulin ([facility]) Class 3 severe obesity due to excess calories with serious comorbidity and body mass index (BMI) of 40.0 to 44.9 in adult ([facility]) Chronic hypoxic respiratory failure ([facility]) Chronic heart failure with preserved ejection fraction (HFpEF) ([facility]) Type 2 diabetes mellitus with hyperglycemia, with long-term current use of insulin ([facility])- Primary Chronic heart failure with preserved ejection fraction (HFpEF) ([facility]) Mild episode of recurrent major depressive disorder JOHN (generalized anxiety disorder) Generalized anxiety disorder Gastroesophageal reflux disease without esophagitis Esophageal reflux Class 3 severe obesity due to excess calories with serious comorbidity and body mass index (BMI) of 40.0 to 44.9 in adult ([facility]) Type 2 diabetes mellitus with hyperglycemia, with long-term current use of insulin ([facility])- Primary Benign essential hypertension Essential hypertension, benign Mild episode of recurrent major depressive disorder JOHN (generalized anxiety disorder) Generalized anxiety disorder Chronic heart failure with preserved ejection fraction (HFpEF) ([facility]) Type 2 diabetes mellitus with microalbuminuria, with long-term current use of insulin ([facility]) Class 3 severe obesity due to excess calories with serious comorbidity and body mass index (BMI) of 40.0 to 44.9 in adult ([facility]) Encounter for long-term (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 medications Encounter for long-term (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 other medications Dyslipidemia Other and unspecified hyperlipidemia Primary osteoarthritis of both knees Acute pain of left knee- Primary documented in this encounter [facility] HealthcareEvaluation note* Diagnosis Mild episode of recurrent major depressive disorder- Primary Type 2 diabetes mellitus with microalbuminuria, with long-term current use of insulin ([facility]) JOHN (generalized anxiety disorder) Generalized anxiety disorder Migraine without aura and without status migrainosus, not intractable Irritable bowel syndrome with diarrhea Irritable bowel syndrome Gastroesophageal reflux disease without esophagitis Esophageal reflux Hot flashes due to menopause Morbid obesity ([facility]) Morbid obesity long-term (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 insulin (Z79.4) Obesity hypoventilation syndrome ([facility])- Primary Obesity hypoventilation syndrome Hypoxia Hypoxemia Type 2 diabetes mellitus with microalbuminuria, with long-term current use of insulin ([facility]) Right carpal tunnel syndrome Carpal tunnel syndrome Elevated blood-pressure reading without diagnosis of hypertension Elevated blood pressure reading without diagnosis of hypertension Type 2 diabetes mellitus with hyperglycemia, with long-term current use of insulin ([facility])- Primary Mild episode of recurrent major depressive disorder JOHN (generalized anxiety disorder) Generalized anxiety disorder Carpal tunnel syndrome of left wrist Obesity hypoventilation syndrome ([facility]) Obesity hypoventilation syndrome Generalized edema Edema Irritable bowel syndrome with diarrhea Irritable bowel syndrome Gastroesophageal reflux disease without esophagitis Esophageal reflux Anxiety state Anxiety state, unspecified Type 2 diabetes mellitus with hyperglycemia, with long-term current use of insulin ([facility])- Primary Right carpal tunnel syndrome Carpal tunnel syndrome Chronic hypoxic respiratory failure ([facility]) Mild episode of recurrent major depressive disorder JOHN (generalized anxiety disorder) Generalized anxiety disorder Generalized edema 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 Spondylosis of unspecified site without mention of myelopathy 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 elsewhere ([facility]) Acute pain of right knee- Primary Type 2 diabetes mellitus with microalbuminuria, with long-term current use of insulin ([facility]) Right carpal tunnel syndrome Carpal tunnel syndrome Chronic hypoxic respiratory failure ([facility])- Primary Chronic heart failure with preserved ejection fraction (HFpEF) ([facility]) Type 2 diabetes mellitus with hyperglycemia, with long-term current use of insulin ([facility]) Pulmonary hypertension ([facility]) Other chronic pulmonary heart diseases Colon cancer screening Special screening for malignant neoplasms, colon Gastroesophageal reflux disease without esophagitis Esophageal reflux Dehydration- Primary Nausea and vomiting, unspecified vomiting type Type 2 diabetes mellitus with hyperglycemia, with long-term current use of insulin ([facility]) Class 3 severe obesity due to excess calories with serious comorbidity and body mass index (BMI) of 40.0 to 44.9 in adult ([facility]) Chronic hypoxic respiratory failure ([facility]) Chronic heart failure with preserved ejection fraction (HFpEF) ([facility]) Type 2 diabetes mellitus with hyperglycemia, with long-term current use of insulin ([facility])- Primary Chronic heart failure with preserved ejection fraction (HFpEF) ([facility]) Mild episode of recurrent major depressive disorder JOHN (generalized anxiety disorder) Generalized anxiety disorder Gastroesophageal reflux disease without esophagitis Esophageal reflux Class 3 severe obesity due to excess calories with serious comorbidity and body mass index (BMI) of 40.0 to 44.9 in adult ([facility]) Type 2 diabetes mellitus with hyperglycemia, with long-term current use of insulin ([facility])- Primary Benign essential hypertension Essential hypertension, benign Mild episode of recurrent major depressive disorder JOHN (generalized anxiety disorder) Generalized anxiety disorder Chronic heart failure with preserved ejection fraction (HFpEF) ([facility]) Type 2 diabetes mellitus with microalbuminuria, with long-term current use of insulin ([facility]) Class 3 severe obesity due to excess calories with serious comorbidity and body mass index (BMI) of 40.0 to 44.9 in adult ([facility]) Encounter for long-term (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 medications Encounter for long-term (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 other medications Dyslipidemia Other and unspecified hyperlipidemia Primary osteoarthritis of both knees Pelvic pain in female- Primary Unspecified symptom associated with female genital organs Nausea Nausea alone Genital warts Condyloma acuminatum documented in this encounter [facility] HealthcareInstructionsNot on filedocumented in this encounterProMedica Health SystemInstructionsNot on filedocumented in this encounterProSamaritan [facility] Centerca [facility] SystemInstructionsNot on filedocumented in this encounterProMedica [...] InstructionsNot on filedocumented in this encounterProMedica Health SystemRekindred [facility] for referral (narrative)* Consultation (Routine) - Pending Review Specialty Diagnoses / Procedures Referred By Contac t Referred To Contact Pulmonary Medicine Diagnoses Mediastinal lymphadenopathy Angela Witt MD [address] [facility] [address] [place] [address] [facility] Sleep [facility] [address] [address] Referral ID Status Reason Start Date Expiration Date Visits Requested Visits Authorized [id number] Pending Review Specialty Services Required 11/09/2023 11/08/2024 1 1 [facility] for referral (narrative)* Consultation (Routine) - Pending Review Specialty Diagnoses / Procedures Referred By Contac t Referred To Contact Pulmonary Medicine Diagnoses Hypoxia Eddie Zurita, C CONSULTANT-TAX EXAMINING TECHNICIAN [address] [place] [address] Lindsay Arrieta, [address] [place] [address] Referral ID Status Reason Start Date Expiration Date Visits Requested Visits Authorized [id number] Pending Review Specialty Services Required 12/22/2023 12/21/2024 1 1 * Misc (Routine) - Pending Review Specialty Diagnoses / Procedures Referred By Contac t Referred To Contact Procedures Discharge Follow-Up Eddie Zurita, C CONSULTANT-TAX EXAMINING TECHNICIAN [address] [place] [address] Referral ID Status Reason Start Date Expiration Date V isits Requested Visits Authorized [id number] Pending Review 12/22/2023 12/21/2024 1 1 * Misc (Routine) - Pending Review Specialty Diagnoses / Procedures Referred By Contac t Referred To Contact Diagnoses Hyperglycemia Acute cystitis without hematuria Procedures Follow-up with primary care provider Eddie Zurita, FINA-TAX EXAMINING TECHNICIAN [address] [facility] [address] [place] [address] Referral ID Status Reason Start Date Expiration Date V isits Requested Visits Authorized [id number] Pending Review 12/22/2023 12/21/2024 1 1 * Misc (Routine) - Pending Review Specialty Diagnoses / Procedures Referred By Contac t Referred To Contact Procedures Adult diet Eddie Zurita, C CONSULTANT-TAX EXAMINING TECHNICIAN [address] [facility] [address] [place] [address] Referral ID Status Reason Start Date Expiration Date V isits Requested Visits Authorized [id number] Pending Review 12/22/2023 12/21/2024 1 1 [facility] for visit Narrative* Auth/Cert Specialty Diagnoses / Procedures Referred By Contac t Referred To Contact Diagnoses DKA, type 1, not at goal (HCC) BENNIEA Jamal Levine MD [address] [address] [address] [place] [address] Referral ID Status Reason Start Date Expiration Date Visits Re quested Visits Authorized [id number] 1 1 [employer] Phone: reason for visit Narrative* Consultation (Routine) - Pending Review Specialty Diagnoses / Procedures Referred By Contac t Referred To Contact Cardiothoracic Surgery Diagnoses Cavitary lesion of lung Diaz Dalton MD [address] [place] [address] Angela Witt MD [address] [facility] [address] [place] [address] Referral ID Status Reason Start Date Expiration Date Visits Requested Visits Authorized [id number] Pending Review Specialty Services Required 09/19/2023 09/18/2024 1 1 [facility]* Misc (Routine) - Closed Specialty Diagnoses / Procedures Referred By Contac t Referred To Contact Diagnoses JOSE M (obstructive sleep apnea) Chronic hypoxic respiratory failure ([facility]) Severe obesity (BMI >= 40) ([facility]) Procedures PSG Diagnostic Smitha Germain MD [address] [facility] [address] [place] [address] Phone: tel: fax: Referral ID Status Reason Start Date Expiration Date Visits Re quested Visits Authorized [id number] Closed 04/09/2024 04/09/2025 1 1 [facility] N[facility]* Consultation (Routine) - Authorized Specialty Diagnoses / Procedures Referred By Contac t Referred To Contact Physical Therapy Diagnoses Acute pain of left knee Procedures [place] OFFICE/OUTPATIENT NEW HIGH MDM 60 MINUTES Jr. Harinder Jackson, [address] [facility] [address] [place] [address] Phone: tel: fax: Shakila Valadez PT Referral ID Status Reason Start Date Expiration Date Visits Requested Visits Authorized [id number] Authorized Consult and Treat 03/14/2025 09/10/2025 30 30 [facility] Narrative* Consultation (Routine) - Authorized Specialty Diagnoses / Procedures Referred By Contac t Referred To Contact Physical Therapy Diagnoses Acute pain of left knee Procedures [place] OFFICE/OUTPATIENT NEW HIGH MDM 60 MINUTES Jr. Harinder Jackson, [address] [facility] [address] [place] [address] Phone: tel: fax: Shakila Valadez PT Referral ID Status Reason Start Date Expiration Date Visits Requested Visits Authorized [id number] Authorized Consult and Treat 03/14/2025 09/03/2025 30 [...] Referral Specialty Diagnoses / Procedures Referred By Contac t Referred To Contact Diagnoses Type 2 diabetes mellitus with hyperglycemia, with long-term current use of insulin ([facility]) Diaz Dalton MD [address] [place] [address] Referral ID Status Reason Start Date Expiration Date V isits Requested Visits Authorized [id number] Pending Review 05/16/2024 11/12/2024 1 1 Specialty Diagnoses / Procedures Referred By Contac t Referred To Contact Diagnoses Hypoxia Dyspnea on exertion Procedures Home O2 eval (desaturation screen) [place] [address] [place] [phone] Referral ID Status Reason Start Date Expiration Date V isits Requested Visits Authorized [id number] Pending Review 02/08/2024 02/07/2025 1 1 Specialty Diagnoses / Procedures Referred By Contac t Referred To Contact Radiology Diagnoses Mediastinal lymphadenopathy Procedures [place] [address] [place] [address] [facility] [address] [place] [address] Phone: [phone] Referral ID Status Reason Start Date Expiration Date V isits Requested Visits Authorized [id number] Pending Review 02/08/2024 02/07/2025 1 1 Specialty Diagnoses / Procedures Referred By Contac t Referred To Contact Diagnoses Moderate persistent asthma without complication Lindsay Arrieta, DO [address] [address] Referral ID Status Reason Start Date Expiration Date V isits Requested Visits Authorized [id number] Authorized 02/19/2024 02/17/2025 1 1 Specialty Diagnoses / Procedures Referred By Contac t Referred To Contact Diagnoses Dyspnea on exertion Chronic hypoxic respiratory failure ([facility]) Moderate persistent asthma without complication Procedures Oxygen [place] [address] [place] [phone] Referral ID Status Reason Start Date Expiration Date V isits Requested Visits Authorized [id number] Pending Review 02/19/2024 02/18/2025 1 1 Specialty Diagnoses / Procedures Referred By Contac t Referred To Contact Diagnoses Dyspnea on exertion Chronic hypoxic respiratory failure ([facility]) Procedures Echo complete W/O [place] [address] [place] [id number] Referral ID Status Reason Start Date Expiration Date V isits Requested Visits Authorized [id number] Pending Review 02/19/2024 02/18/2025 1 1 Specialty Diagnoses / Procedures Referred By Contac t Referred To Contact Diagnoses Chronic hypoxic respiratory failure ([facility]) SOB (shortness of breath) Hypoxia Procedures Oxygen Therapy Meenakshi Lindsay M, DO [address] [place] [id number] Referral ID Status Reason Start Date Expiration Date V isits Requested Visits Authorized [id number] Pending Review 05/07/2024 05/07/2025 1 1 Specialty Diagnoses / Procedures Referred By Contac t Referred To Contact Diagnoses JOSE M (obstructive sleep apnea) Chronic hypoxic respiratory failure ([facility]) Severe obesity (BMI >= 40) ([facility]) Procedures Polysomnography 4 or more parameters [place] [address] [place] [phone] Referral ID Status Reason Start Date Expiration Date V isits Requested Visits Authorized [id number] Pending Review 04/09/2024 04/09/2025 1 1 Specialty Diagnoses / Procedures Referred By Contac t Referred To Contact Diagnoses JOSE M (obstructive sleep apnea) Chronic hypoxic respiratory failure ([facility]) Severe obesity (BMI >= 40) ([facility]) Procedures PSG Diagnostic Smitha Germain MD [address] [facility] [address] [place] [address] Referral ID Status Reason Start Date Expiration Date V isits Requested Visits Authorized Pending Review 04/09/2024 04/09/2025 1 1 Additional Source Comments INFORMATION SOURCE (unrecogn ized section and content) DATE CREATED AUTHOR 02/07/2021 [facility] DATE CREATED AUTHOR AUTHOR'S ORGANIZ ATION 02/20/2021 [facility] DATE CREATED AUTHOR AUTHOR'S ORGANIZ ATION 06/06/2021 [facility] DATE CREATED AUTHOR AUTHOR'S ORGANIZ ATION 10/01/2021 [facility] DATE CREATED AUTHOR AUTHOR'S ORGANIZ ATION 10/06/2021 [facility] DATE CREATED AUTHOR AUTHOR'S ORGANIZ ATION 12/09/2022 [facility] DATE CREATED AUTHOR AUTHOR'S ORGANIZ ATION 01/13/2023 [facility] DATE CREATED AUTHOR AUTHOR'S ORGANIZ ATION 03/24/2024 [facility] DATE CREATED AUTHOR AUTHOR'S ORGANIZ ATION 07/17/2024 [facility] DATE CREATED AUTHOR AUTHOR'S ORGANIZ ATION 02/04/2025 [facility] DATE CREATED AUTHOR AUTHOR'S ORGANIZ ATION 03/17/2025 [facility] DATE CREATED AUTHOR AUTHOR'S ORGANIZ ATION 04/23/2025 [facility] EPIC Ordered Prescriptions (unrec ognized [...] Provider: Mary Wong)2106 (Given - Provider: Danica Platt, GEORGINA) 0807 (Not Given - Provider: Li Phelan [...] ALERT or NPO., Starting on Mon09/29/21 at 001, If patient does not respond within 5 [...] have IV access., Starting on Mon09/29/21 at 001, After administration, attempt intravenous access and start [...] Protocol, Starting on Joaquina 09/30/21 at 1607, Administer as alternative if patient [...] 0113 (See Alternative - Provider: Danica Platt RN)174 (See Alternative - Provider: Mary Wong) potassium [...] not for use in Patients with CrCl<30ml/min 011 (Given - Provider: Danica Platt RN - [...] not for use in Patients with CrCl<30ml/min 3 (See Alternative - Provider: Danica Platt RN)1742 (See Alternative - Provider: Mary Wong) sodium [...] for use. 2114 (Given - Provider: Clarita Morataya, GEORGINA) 2140 (Given - Provider: Archana Hernandez, RN) 2199 (Due) buPROPion XL (WELLBUTRIN XL) 24 hr tablet 300 mg 300 mg, oral, Daily, First dose on Joaquina 24 at 0900, Look-alike/sound-alike medication - verify indication for use. Do not crush or chew. 0921 (Given - Provider: Jared Huerta) 0843 (Given - Provider: Jania Sierra, GEORGINA) 0820 (Given - Provider: Lindsey Bryant, RN) cefTRIAXone (ROCEPHIN) IVPB 1000 mg/50 mL [...] Morataya, GEORGINA)2153 (Stop Bag - Provider: Clarita Morataya, GEORGINA) 2145 (New Bag - Provider: Archana Hernandez, GEORGINA)2215 (Stop Bag - Provider: Archana Hernandez, GEORGINA) [...] First dose (after last reorder) on Joaquina 24 at 0600, Look-alike/sound-alike medication - verify indication for use. 0529 (Given - Provider: Anh Dang RN)1723 (Given - Provider: Arlene Smallwood, GEORGINA) 0529 (Given - Provider: Clarita Morataya RN)1800 (Not Given - Provider: Jania Sierra RN [...] 0843 (Given - Provider: Jania Sierra, GEORGINA) 0815 (Given - Provider: Lindsey Bryant, GEORGINA) insulin lispro (HumaLOG) injection 2-10 Units 2-10 Units, subcutaneous, 3 times daily with meals, First dose on Joaquina 12/21/23 at 0800, Daytime hyperglycemia dosing. For blood [...] Arlene Smallwood, GEORGINA)1723 (Given - Provider: Arlene Smallwood, GEORGINA) 0843 (Given - Provider: Jania Sierra, GEORGINA)1152 (Given - Provider: Jania Sierra, GEORGINA)1843 (Given - Provider: Jania Sierra, GEORGINA - Comment: 402 after eating [employer] notified no new orders) 0815 (Given - Provider: Lindsey Bryant, GEORGINA)1134 (Given - Provider: Lindsey Bryant RN)1700 (Due) [...] RN) 2140 (Given - Provider: Archana Hernandez RN - Comment: bs 269) 2199 (Due) lamoTRIgine (LaMICtal) tablet 200 mg 200 mg, oral, Daily, First dose on Mon12/21/23 at 0900, Look-alike/sound-alike medication - verify indication for use., Indications: depression associated with bipolar disorder 0921 (Given - Provider: Jared Huerta) 0843 (Given - Provider: Jania Sierra RN) 0820 (Given - Provider: Lindsey Bryant RN) lisinopriL (PRINIVIL,ZESTRIL) tablet 2.5 mg 2.5 mg, oral, Daily, First dose on Mon12/21/23 at 0900, Look-alike/sound-alike medication - verify indication for use. 0921 (Given - Provider: Jared Huerta) 0843 (Given - Provider: Jania Sierra RN) 0820 (Given - Provider: Lindsey Bryant RN) pantoprazole (PROTONIX) EC tablet 40 mg 40 mg, oral, Every morning before breakfast, First dose on Mon12/21/23 at 0700, Look-alike/sound-alike medication - verify indication for use. If patient is receiving enteral feeding, consider alternative PPI or continue IV pantoprazole until the delayed-release tablet can be taken orally, Indication: Stress Ulcer Prophylaxis (Contraindication to H2RA) 0531 (Given - Provider: Anh Dang RN) 0529 (Given - Provider: Clarita Morataya RN)0700 (Canceled Entry - Provider: Clarita Morataya RN) [...] Sierra RN) 0821 (Given - Provider: Lindsey Bryant, GEORGINA) prazosin (MINIPRESS) capsule 2 mg 2 mg, oral, Nightly, First dose on Joaquina 12/21/23 at 2200 2200 (Not Given - Provider: Clarita Morataya RN - Reason: Other - Comment: low BP) 2141 (Given - Provider: Archana Hernandez, GEORGINA) 2200 (Due) sertraline (ZOLOFT) tablet 100 mg 100 mg, oral, Daily, First dose on Joaquina 12/21/23 at 0900, Look-alike/sound-alike medication - verify indication for use. 0922 (Given - Provider: Jared Huerta) 0843 (Given - Provider: Jania Sierra RN) 0821 (Given - Provider: Lindsey Bryant, GEORGINA) Continuous Medication Order 12/21/2023 12/22/2023 12/23/2023 sodium chloride 0.9 % infusion 100 mL/hr, intravenous, Continuous, Starting on Mon12/20/23 at 2215 0106 (Rate/Dose Verify - Provider: Anh Dang RN)1719 (Rate/Dose Change - Provider: Clarita Morataya RN)1809 (Rate/Dose Change - Provider: Clarita Morataya RN)1810 (Stop Bag - Provider: Clarita Morataya RN) 0404 (Stop Bag - Provider: Clarita Morataya, RN)0404 (New Bag - Provider: Clarita Morataya, [phone] (Rate/Dose Verify - Provider: Clarita Morataya [...] Care Teams (unrecognized sec tion and content) Territory Account Executive Relationship Specialty Start Date End Date Diaz Dalton MD [address] [place] [address] PCP - General Family Medicine 09/28/21 Territory Account Executive Relationship Specialty Start Date End Date Diaz Dalton MD [address] [place] [address] PCP - General Family Medicine 09/25/23 Territory Account Executive Relationship Specialty Start Date End Date Diaz Dalton MD [address] [place] [address] PCP - General Family Medicine 09/25/23 Territory Account Executive Relationship Specialty Start Date End Date Diaz Dalton MD [address] [place] [address] PCP - General Family Medicine 09/25/23 Territory Account Executive Relationship Specialty Start Date End Date Diaz Dalton MD [address] [place] [address] PCP - General Family Medicine 09/25/23 Territory Account Executive Relationship Specialty Start Date End Date Diaz Dalton MD [address] [place] [address] PCP - General Family Medicine 09/25/23 Territory Account Executive Relationship Specialty Start Date End Date Diaz Dalton MD [address] [place] [address] PCP - General Family Medicine 09/25/23 Territory Account Executive Relationship Specialty Start Date End Date Diaz Dalton MD [address] [place] [address] PCP - General Family Medicine 06/28/24 Territory Account Executive Relationship Specialty Start Date End Date Diaz Dalton MD [address] [place] [address] PCP - General Family Medicine 09/25/23 Territory Account Executive Relationship Specialty Start Date End Date Diaz Dalton MD [address] [place] [place] [address] PCP - General Family Medicine 09/25/23 Territory Account Executive Relationship Specialty Start Date End Date Diaz Dalton MD [address] [place] [address] PCP - General Family Medicine 09/25/23 Territory Account Executive Relationship Specialty Start Date End Date Diaz Dalton MD [address] [place] [address] PCP - General Family Medicine 09/25/23 Territory Account Executive Relationship Specialty Start Date End Date Diaz Dalton MD [address] [place] [address] PCP - General Family Medicine 09/25/23 Territory Account Executive Relationship Specialty Start Date End Date Diaz Dalton MD [address] [place] [address] PCP - General Family Medicine 09/25/23 Territory Account Executive Relationship Specialty Start Date End Date Diaz Dalton MD [address] [place] [address] PCP - General Family Medicine 09/25/23 Territory Account Executive Relationship Specialty Start Date End Date Diaz Dalton MD [address] [place] [address] PCP - General Family Medicine 09/25/23 Territory Account Executive Relationship Specialty Start Date End Date Diaz Dalton MD [address] [place] [address] PCP - General Family Medicine 09/25/23 Territory Account Executive Relationship Specialty Start Date End Date Diaz Dalton MD [address] [place] [address] PCP - General Family Medicine 09/25/23 Territory Account Executive Relationship Specialty Start Date End Date Diaz Dalton MD [address] [place] [address] PCP - General Family Medicine 09/25/23 Territory Account Executive Relationship Specialty Start Date End Date Diaz Dalton MD [address] [place] [address] PCP - General Family Medicine 09/25/23 Territory Account Executive Relationship Specialty Start Date End Date Diaz Dalton MD [address] [place] [address] PCP - General Family Medicine 09/25/23 Territory Account Executive Relationship Specialty Start Date End Date Diaz Dalton MD [address] [place] [address] PCP - General Family Medicine 09/25/23 Territory Account Executive Relationship Specialty Start Date End Date Diaz Dalton MD [address] [place] [address] PCP - General Family Medicine 09/25/23 Territory Account Executive Relationship Specialty Start Date End Date Diaz Dalton MD [address] [place] [address] PCP - General Family Medicine 09/25/23 Territory Account Executive Relationship Specialty Start Date End Date Diaz Dalton MD [address] [place] [address] PCP - General Family Medicine 09/25/23 Territory Account Executive Relationship Specialty Start Date End Date Diaz Dalton MD [address] [place] [address] PCP - General Family Medicine 09/25/23 Territory Account Executive Relationship Specialty Start Date End Date Diaz Dalton MD [address] [place] [address] PCP - General Family Medicine 06/28/24 Territory Account Executive Relationship Specialty Start Date End Date Diaz Dalton MD [address] [place] [address] PCP - General Family Medicine 06/28/24 Territory Account Executive Relationship Specialty Start Date End Date Diaz Dalton MD [address] [place] [address] PCP - General Family Medicine 06/28/24 Territory Account Executive Relationship Specialty Start Date End Date Diaz Dalton MD [address] [place] [address] PCP - General Family Medicine 06/28/24 Territory Account Executive Relationship Specialty Start Date End Date Diaz Dalton MD [address] [place] [address] PCP - General Family Medicine 09/25/23 Territory Account Executive Relationship Specialty Start Date End Date Diaz Dalton MD [address] [place] [address] PCP - General Family Medicine 09/24/21 Territory Account Executive Relationship Specialty Start Date End Date Diaz Dalton MD [address] [place] [address] PCP - General Family Medicine 09/24/21 Territory Account Executive Relationship Specialty Start Date End Date Diaz Dalton MD [address] [place] [address] PCP - General Family Medicine 09/24/21 Territory Account Executive Relationship Specialty Start Date End Date Diaz Dalton MD [address] [place] [address] PCP - General Family Medicine 09/24/21 Territory Account Executive Relationship Specialty Start Date End Date Diaz Dalton MD [address] [place] [address] PCP - General Family Medicine 09/24/21 Territory Account Executive Relationship Specialty Start Date End Date Diaz Dalton MD [address] [place] [address] PCP - General Family Medicine 09/24/21 Territory Account Executive Relationship Specialty Start Date End Date Diaz Dalton MD [address] [place] [address] PCP - General Family Medicine 09/24/21 Territory Account Executive Relationship Specialty Start Date End Date Diaz Dalton MD [address] [place] [address] PCP - General Family Medicine 09/24/21 Territory Account Executive Relationship Specialty Start Date End Date Diaz Dalton MD [address] [place] [address] PCP - General Family Medicine 09/24/21 Territory Account Executive Relationship Specialty Start Date End Date Diaz Dalton MD [address] [place] [address] PCP - General Family Medicine 09/24/21 Territory Account Executive Relationship Specialty Start Date End Date Diaz Dalton MD [address] [place] [address] PCP - General Family Medicine 09/24/21 Territory Account Executive Relationship Specialty Start Date End Date Diaz Dalton MD [address] [place] [address] PCP - General Family Medicine 09/24/21 Territory Account Executive Relationship Specialty Start Date End Date Diaz Dalton MD [address] [place] [address] PCP - General Family Medicine 09/24/21 Territory Account Executive Relationship Specialty Start Date End Date Diaz Dalton MD PCP - General Family Medicine 09/24/21 Territory Account Executive Relationship Specialty Start Date End Date Diaz Dalton MD PCP - General Family Medicine 09/24/21 Territory Account Executive Relationship Specialty Start Date End Date Diaz Dalton MD PCP - General Family Medicine 09/24/21 Territory Account Executive Relationship Specialty Start Date End Date Diaz Dalton MD PCP - General Family Medicine 05/16/24 Territory Account Executive Relationship Specialty Start Date End Date Diaz Dalton MD [address] [place] [address] PCP - General Family Medicine 05/28/24 Territory Account Executive Relationship Specialty Start Date End Date Diaz Dalton MD [address] [place] [address] PCP - General Family Medicine 05/28/24 Territory Account Executive Relationship Specialty Start Date End Date Diaz Dalton MD [address] [place] [address] PCP - General Family Medicine 05/28/24 Territory Account Executive Relationship Specialty Start Date End Date Diaz Dalton MD [address] [place] [address] PCP - General Family Medicine 05/28/24 Territory Account Executive Relationship Specialty Start Date End Date Diaz Dalton MD [address] [place] [address] PCP - General Family Medicine 06/28/24 Territory Account Executive Relationship Specialty Start Date End Date Diaz Dalton MD [address] [place] [address] PCP - General Family Medicine 06/28/24 Territory Account Executive Relationship Specialty Start Date End Date Diaz Dalton MD [address] [place] [address] PCP - General Family Medicine 06/28/24 Territory Account Executive Relationship Specialty Start Date End Date Diaz Dalton MD [address] [place] [address] PCP - General Family Medicine 06/28/24 Territory Account Executive Relationship Specialty Start Date End Date Diaz Dalton MD [address] [place] [address] PCP - General Family Medicine 06/28/24 Territory Account Executive Relationship Specialty Start Date End Date Diaz Dalton MD [address] [place] [address] PCP - General Family Medicine 09/25/23 Territory Account Executive Relationship Specialty Start Date End Date Diaz Dalton MD [address] [place] [address] PCP - General Family Medicine 09/25/23 Territory Account Executive Relationship Specialty Start Date End Date Diaz Dalton MD [address] [place] [address] PCP - General Family Medicine 09/25/23 Territory Account Executive Relationship Specialty Start Date End Date Diaz Dalton MD [address] [place] [address] PCP - General Family Medicine 09/25/23 Territory Account Executive Relationship Specialty Start Date End Date Diaz Dalton MD PCP - General Family Medicine 10/27/24 Territory Account Executive Relationship Specialty Start Date End Date Diaz Dalton MD PCP - General Family Medicine 10/27/24 Territory Account Executive Relationship Specialty Start Date End Date Diaz Dalton MD PCP - General Family Medicine 10/27/24 Territory Account Executive Relationship Specialty Start Date End Date Diaz Dalton MD PCP - General Family Medicine 10/27/24 Territory Account Executive Relationship Specialty Start Date End Date Diaz Dalton MD [address] [place] [address] PCP - General Family Medicine 09/25/23 Territory Account Executive Relationship Specialty Start Date End Date Diaz Dalton MD [address] [place] [address] PCP - General Family Medicine 09/25/23 Territory Account Executive Relationship Specialty Start Date End Date Diaz Dalton MD PCP - General Family Medicine 10/27/24 Territory Account Executive Relationship Specialty Start Date End Date Diaz Dalton MD [address] [place] [address] PCP - General Family Medicine 09/25/23 Territory Account Executive Relationship Specialty Start Date End Date Diaz Dalton MD [address] [place] [address] PCP - General Family Medicine 09/25/23 Territory Account Executive Relationship Specialty Start Date End Date Diaz Dalton MD [address] [place] [address] PCP - General Family Medicine 09/25/23 Territory Account Executive Relationship Specialty Start Date End Date Diaz Dalton MD PCP - General Family Medicine 10/27/24 Territory Account Executive Relationship Specialty Start Date End Date Diaz Dalton MD PCP - General Family Medicine 10/27/24 Territory Account Executive Relationship Specialty Start Date End Date Diaz Dalton MD PCP - General Family Medicine 10/27/24 Territory Account Executive Relationship Specialty Start Date End Date Diaz Dalton MD [address] [place] [address] PCP - General Family Medicine 09/25/23 Territory Account Executive Relationship Specialty Start Date End Date Diaz Dalton MD PCP - General Family Medicine 10/27/24 Territory Account Executive Relationship Specialty Start Date End Date Diaz Dalton MD PCP - General Family Medicine 10/27/24 Territory Account Executive Relationship Specialty Start Date End Date Diaz Dalton MD [address] [place] [address] PCP - General Family Medicine 09/25/23 Territory Account Executive Relationship Specialty Start Date End Date Diaz Dalton MD [address] [place] [address] PCP - General Family Medicine 09/25/23 Territory Account Executive Relationship Specialty Start Date End Date Diaz Dalton MD [address] [place] [address] PCP - General Family Medicine 09/25/23 Territory Account Executive Relationship Specialty Start Date End Date Diaz Dalton MD [address] [place] [address] PCP - General Family Medicine 09/25/23 Territory Account Executive Relationship Specialty Start Date End Date Diaz Dalton MD [address] [place] [address] PCP - General Family Medicine 09/25/23 Territory Account Executive Relationship Specialty Start Date End Date Diaz Dalton MD [address] [place] [address] PCP - General Family Medicine 09/25/23 Territory Account Executive Relationship Specialty Start Date End Date Diaz Dalton MD [address] [place] [address] PCP - General Family Medicine 09/25/23 Territory Account Executive Relationship Specialty Start Date End Date Diaz Dalton MD [address] [place] [address] PCP - General Family Medicine 09/25/23 Territory Account Executive Relationship Specialty Start Date End Date Diaz Dalton MD [address] [place] [address] PCP - General Family Medicine 09/25/23 Territory Account Executive Relationship Specialty Start Date End Date Diaz Dalton MD [address] [place] [address] PCP - General [facility] Medicine 09/25/23 Territory Account Executive Relationship Specialty Start Date End Date Diaz Dalton MD [address] [place] [address] PCP - General [facility] Medicine 09/25/23 Territory Account Executive Relationship Specialty Start Date End Date Diaz Dalton MD [address] [place] [address] PCP - [facility] 09/25/23 Territory Account Executive Relationship Specialty Start Date End Date Diaz Dalton MD [address] [place] [address] PCP - General Family Medicine 09/25/23 Reason for Visit (unrecogniz ed section and content) Reason Comments Post-op Reason Comments Amenorrhea Reason Onset Date Comments medical clearance 06/03/2024 Reason Comments Wound Check S/P Cath 06/26/24 Reason Comments Follow-up Reason Onset Date Comments Med Refill 07/29/2024 Reason Onset Date Comments Med Refill 08/05/2024 Reason Comments Follow-up [facility] f/UP Reason Comments Well Women Visit [...] Medicine Diagnoses Mediastinal lymphadenopathy Angela Witt MD [address] [facility] [address] [place] [address] [facility] Pulm Sleep Med [address] [facility] [address] [place] [address] Referral ID Status Reason Start Date Expiration Date Visits Requested Visits Authorized [id number] Pending Review Specialty Services Required 11/09/2023 11/08/2024 1 1 Reason Comments Shortness of Breath Specialty Diagnoses / Procedures Referred By Contac t Referred To Contact Diagnoses SOB (shortness of breath) Hyperglycemia Acute cystitis without hematuria Ezequiel Graff MD [address] [place] [address] Referral ID Status Reason Start Date Expiration Date Visits Re quested Visits Authorized [id number] 1 1 Reason Comments Follow-up Mediastinal lymphade nopathyCXR 1 VW: 12/19/2026ronch: 11/22/2023FT: not completedLabs: not completed Specialty Diagnoses / Procedures Referred By Contac t Referred To Contact Pulmonary Medicine Diagnoses Hypoxia Eddie Zurita, C CONSULTANT-TAX EXAMINING TECHNICIAN [address] [facility] [address] [place] [address] Lindsay Arrieta, DO [address] [place] [address] Referral ID Status Reason Start Date Expiration Date Visits Requested Visits Authorized [id number] Pending Review Specialty Services Required 12/22/2023 12/21/2024 [...] BE BASED ON THE PRIMARY CLINICAL RECORDS. [employer] provides no warranty or guarantee of the accuracy or completeness of information in this document.
== END 2025-04-24 13:21 | disposition home or self-care (01) ==
PROVIDERS: PCP Family Medicine; Visit Provider Nurse Practitioner Family
DX: R10.2 Pelvic and perineal pain (principal); E11.65 Type 2 diabetes mellitus with hyperglycemia; Z79.4 Long term (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 insulin; I10 Essential (primary) hypertension; Z79.899 Other long term (current) drug therapy; E78.5 Hyperlipidemia, unspecified; E66.813 Obesity, class 3; E66.01 Morbid (severe) obesity due to excess calories; Z68.41 Body mass index [BMI] 40.0-44.9, adult
CPT/HCPCS: 36415; 76830; 76856; 80048; 80061; 80076; 82043; 82570; 83036; 84443; 85025

== ENCOUNTER 2025-06-05 08:00 | Outpatient (OUT) | payer MEDICAID, SELFPAY ==
--- OUTSIDE RECORDS SUMMARY | 2025-05-26 13:20 | XMS_ITS | Encounter Summary ---
Author Organization [facility] Address [address] [place] [address] Care Team Providers Care Club Attendant Name Role Phone Diaz Dalton MD Primary Care Provider [phone] Reason for Visit * Reason Comments Pre-op Visit Encounter Details Date Type Department Care Team ([facility] Contact Info) Description 05/26/2025 1:20 PM EDT Consult [facility] [address] [place] [address] Feliz Benz DO [address] [place], [facility]11 Pre-op examination; Pelvic pain; Genital warts; Pain of ovary Social History Tobacco Use Types Packs/Day Years [...] Sign Reading Time Taken Comments Blood Pressure 130/82 05/26/2025 1:26 PM EDT Pulse - - Temperature - - Respiratory Rate - - Oxygen Saturation - - Inhaled Oxygen Concentration - - Weight 99.8 kg (220 lb) 05/26/2025 1:26 PM EDT Height 154.9 cm (5' 1 ) 05/26/2025 1:26 PM EDT Body Mass Index 41.57 05/26/2025 1:26 PM EDT documented in this encounter Progress Notes * Talisha Johnson - 05/26/2025 1:20 PM EDT Reason for Appointment: Patient ID: Carissa Miller is a 44 y.o. female who presents for Pre-op Visit Patient presents today for Pre Op appointment. Patient is scheduled to undergo Diagnostic Laparoscopy, possible ANNE, possible FOE, possible BSO and genital wart removal on 06-20-[address] Benz at [facility]. MEDICATIONS Current Outpatient Medications Medication Instructions acyclovir [...] (CELEXA) 40 mg, Oral, Daily Continuous Glucose Ware Dresser (FreeStyle Crystal 3 [place]) device 1 Application, Does not apply, Continuous Continuous Glucose Sensor (FreeStyle Crystal 3 Sensor) [facility] USE TO MONITOR BLOOD SUGAR DIRECTED. CHANGE SENSOR EVERY 14 DAYS. Continuous Glucose Sensor (FreeStyle Crystal 3 Sensor) [facility] USE TO MONITOR BLOOD SUGAR DIRECTED. CHANGE SENSOR EVERY 14 DAYS. cyclobenzaprine (FLEXERIL) 10 mg, Oral, 3 times daily PRN dicyclomine (BENTYL) 20 mg, Oral, 4 times daily PRN empagliflozin (JARDIANCE) 25 mg, Oral, Daily fluconazole (DIFLUCAN) 150 mg, Once furosemide (LASIX) 40 mg, Oral, Daily ibuprofen 800 MG tablet TAKE 1 TABLET BY MOUTH EVERY 6 HOURS IF NEEDED FOR MILD PAIN FOR UP TO 30 DOSES insulin aspart FlexPen (NovoLOG) 100 UNIT/ML pen INJECT SUBCUTANEOUSLY THREE TIMES A DAY PER SLIDING SCALE; *30 TO 40 UNITS DAILY* insulin pen needle (Droplet Pen [place]) 32G x 4 mm misc Use as instructed lamoTRIgine (LAMICTAL) 200 mg, [...] X4/DAY NEXT DAY TIL APPT *04/14* ondansetron (ZOFRAN) 4 mg, Oral, Every 6 hours PRN ondansetron ODT (Zofran-ODT) 4 MG disintegrating tablet [...] aerosol powder 1 puff, Daily RT Trulicity 1.5 mg, Subcutaneous, Weekly ALLERGIES Allergies Allergen Reactions Sulfamethoxazole-Trimethoprim Hives and Itching PROBLEMS Active Ambulatory Problems Diagnosis Date Noted Allergic rhinitis due to allergen 10/01/2009 JOHN (generalized anxiety disorder) 10/01/2009 Contracture, unspecified ankle 04/06/2023 Chronic heart failure with preserved ejection fraction (HFpEF) ([facility]) 04/06/2023 Equinus deformity of left foot 04/06/2023 Gastroesophageal reflux disease 04/06/2023 Genital warts 04/06/2023 Hot flashes due to menopause 04/06/2023 Type 2 diabetes mellitus with microalbuminuria, with long-term current use of insulin ([facility]) 04/06/2023 Internal derangement of left shoulder 04/06/2023 Irritable bowel syndrome with diarrhea 04/06/2023 Mild developmental delay 09/29/2021 Migraine without aura and without status migrainosus, not intractable 04/06/2023 Mild episode of recurrent major depressive disorder 04/06/2023 Class 3 severe obesity due to excess calories with serious comorbidity and body mass index (BMI) of40.0 to 44.9 in adult [place] 11/21/2022 Type 2 diabetes mellitus with polyneuropathy ([facility]) 06/10/2021 Obstructive sleep apnea syndrome 09/30/2009 Osteoarthritis of knee 04/06/2023 Overactive bladder 04/06/2023 Panic disorder without agoraphobia 11/12/2009 Dyslipidemia 04/22/2010 Spondylosis without myelopathy 08/10/2010 Obesity hypoventilation syndrome ([facility] 01/04/2024 Benign essential hypertension 01/04/2024 Right carpal tunnel syndrome 01/04/2024 Type 2 diabetes mellitus with hyperglycemia, with long-term current use of insulin ([facility]) 02/12/2024 Moderate persistent asthma without complication ([facility]) 02/19/2024 Pulmonary hypertension ([facility]) 08/06/2024 Dehydration 10/28/2024 Nausea & vomiting 10/28/2024 Encounter for long-term (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 medications 02/10/2025 Resolved Ambulatory Problems Diagnosis Date Noted Acute kidney injury (DREW) with acute tubular necrosis (ATN) 09/30/2021 Acute pain of left shoulder 04/06/2023 Shoulder joint pain 04/06/2021 Carpal tunnel syndrome of left wrist 04/06/2023 Convulsions in the ([facility]) 09/30/2009 Cubital tunnel syndrome on left 11/04/2022 Fecal incontinence 06/22/2016 High anion gap metabolic acidosis 09/30/2021 Hyperglycemia 03/01/2019 Mild intellectual disability 09/30/2009 Other chronic pain 04/06/2023 Pneumonia due to infectious organism 09/29/2021 Poorly controlled diabetes mellitus ([facility]) 08/10/2015 Normal gynecologic examination 06/09/2015 Missed period 04/06/2023 DKA, type 1, not at goal ([facility]) 09/27/2021 Type 2 diabetes mellitus ([facility]) 09/30/2009 Cavitary lesion of lung 08/10/2023 Other chest pain 08/10/2023 Hypoxia 01/04/2024 Chronic hypoxic respiratory failure ([facility]) 02/19/2024 Acute pain of right knee 05/29/2024 Past Medical History: Diagnosis Date Ankle fracture Anxiety and depression At low risk for fall Bilateral leg edema Chest pain, central Chronic left shoulder pain Chronic pain Chronic respiratory failure ([facility]) Epilepsy ([facility]) GERD (gastroesophageal reflux disease) History of being hospitalized History of medical problems Hyperlipidemia Insomnia, persistent MDD (major depressive disorder), recurrent episode, mild Morbid obesity with BMI of 40.0-44.9, adult ([facility] Nocturnal hypoxemia Nonsmoker OAB (overactive bladder) Obesity JOSE M (obstructive sleep apnea) Postoperative urinary retention Primary osteoarthritis of left knee Seasonal allergies Type 2 diabetes mellitus with diabetic polyneuropathy, with long-term current use of insulin ([facility]) Type 2 diabetes mellitus without complication ([facility]) Vitamin D deficiency HISTORY PAST MEDICAL HISTORY SOCIAL HISTORY Past Medical History: Diagnosis Date Ankle fracture Anxiety and depression At low risk for fall Bilateral leg edema Chest pain, central Chronic left shoulder pain Chronic pain Chronic respiratory failure ([facility]) Dyslipidemia Epilepsy ([facility]) Childhood epilepsy JOHN (generalized anxiety disorder) Genital warts GERD (gastroesophageal reflux disease) History of being hospitalized pneumonia, diabetes, infection [10/29/21-11/05/21] History of medical problems mild mental retardation Hyperlipidemia Insomnia, persistent Irritable bowel syndrome with diarrhea MDD (major depressive disorder), recurrent episode, mild Migraine without aura and without status migrainosus, not intractable Morbid obesity with BMI of 40.0-44.9, adult ([facility] Nocturnal hypoxemia Nonsmoker OAB (overactive bladder) Obesity JOSE M (obstructive sleep apnea) Postoperative urinary retention Primary osteoarthritis of left knee Seasonal allergies Type 2 diabetes mellitus with diabetic polyneuropathy, with long-term current use of insulin ([facility]) Type 2 diabetes mellitus with hyperglycemia, with long-term current use of insulin ([facility]) Type 2 diabetes mellitus without complication ([facility]) Vitamin D deficiency Social History [...] 12/29/2017 Diagnostic laparoscopy LAPAROTOMY OVARIAN CYSTECTOMY 03/31/2023 MO ARTHROCENTESIS ASPIR&/INJ MAJOR JT/BURSA W/O US Right [...] Negative. Endocrine: Negative. Allergic/Immunologic: Negative. OBJECTIVE Objective: OBGyn Exam Vitals: Estimated body mass index is 39.07 kg/m?? as calculated from the following: Height as of 02/10/25: 5' 1 . Weight as of 04/14/25: 206 lb 12 oz. BP: No LMP recorded. Patient is premenopausal. ASSESSMENT & PLAN ICD-10-CM 1. Pre-op examination Z01.818 2. Pelvic pain R10.2 3. Genital warts A63.0 4. Pain of ovary N94.89 Pre Op: Patient is doing well but has complaints of pelvic pain, ovarian pain and genital warts. I have discussed conservative management vs. surgical management with the patient in detail and patient desires surgical management at this time. Patient will undergo Diagnostic Laparoscopy, possible ANNE, possible FOE, possible BSO and genital wart removal on 06-20-25. Surgical consents were signed, mmc was reviewed, and patient is to proceed to [facility] OR. Follow Up: Patient is to follow up between 1-2 weeks post operative to assess proper healing and recovery fromprocedure. Documented by Arlene Mullen LPN on behalf of: Feliz Benz DO documented in this encounter Plan of Treatment Upcoming Encounters Date Type Department Care Team (Late st Contact Info) Description 06/30/2025 10:10 AM EDT Office Visit [facility] [address] [phone] Feliz Benz DO [address] [place] [address] 07/10/2025 1:00 PM EST Office Visit [facility] [address] [place] [id number] Barry Martinez, PUBLIC HEALTH ASSISTANT [address] [place] [address] 08/19/2025 2:00 PM EST Office Visit [facility] [address] [place] [address] Feliz Benz DO [address] [place] [address] documented as of this encounter Visit Diagnoses Diagnosis Pre-op examination Pelvic pain Genital warts Condyloma acuminatum Pain of ovary documented in this encounter Care Teams Club Attendant Relationship Specialty Start Date End Date Diaz Dalton MD PCP - General Family Medicine 09/25/23 documented as of this encounter
--- OUTSIDE RECORDS SUMMARY | 2025-06-03 12:45 | XMS_ITS ---
Author Name Auto Generated Organization OHIP Support Name Relationship Address Phone OHMS, CECILE Next of Kin Unknown + JAY SCHWARTZ Next of Kin Unknown [phone] [address]O Next of Kin Unknown [phone] OHMS, CECILE Next of Kin Unknown + JAY SCHWARTZ Next of Kin Unknown [phone] RANDY AVENDAÑO Next of Kin Unknown [phone] Randy Avendaño Next of Kin Unknown [phone] Braxton Lozada Next of Kin [address] [place] [address] + OHMS, CECILE Next of Kin [address] [place] [address] + OHMS, CECILE Next of Kin [address] [place] [address] + Randy Avendaño Next of Kin Unknown [phone] Braxton Lozada Next of Kin [address] [place] [address] + OHMS, CECILE Next of Kin Unknown + JAY SCHWARTZ Next of Kin Unknown [phone] RANDY AVENDAÑO Next of Kin Unknown [phone] OHMS, CECILE Next of Kin Unknown + JAY SCHWARTZ Next of Kin Unknown [phone] RANDY AVENDAÑO Next of Kin Unknown [...] 580 OHMS, CECILE Next of Kin [address] [facility] [place] [address] + OHMS, CECILE Next of Kin Unknown [...] 580 OHMS, CECILE Next of Kin [address] [place] [address] + OHMS, CECILE Next of Kin [address] [place] [address] + OHMS, CECILE Next of Kin [address] [place] [address] + OHMS, CECILE Next of Kin Unknown + JAY SCHWARTZ Next of Kin Unknown [phone] SLAUTER, RANDY Next of Kin Unknown [phone] OHMS, CECILE Next of Kin [address] [place] [address] + OHMS, CECILE Next of Kin Unknown + JAY SCHWARTZ Next of Kin Unknown [phone] SLAUTER, RANDY Next of Kin Unknown [phone] OHMS, CECILE Next of Kin [address] [place] [address] + OHMS, CECILE Next of Kin Unknown + JAY SCHWARTZ Next of Kin Unknown [phone] SLAUTER, RANDY Next of Kin Unknown [phone] OHMS, CECILE Next of Kin [address] [place] [address] + SLAUTER, PRAMOD Next of Kin Unknown Unavailable SLAUTER, PRAMOD Next of Kin Unknown Unavailable OHMS, CECILE Next of Kin [address] [place] [address] + SLAUTER, PRAMOD Next of Kin Unknown Unavailable SLAUTER, PRAMOD Next of Kin Unknown Unavailable OHMS, CECILE Next of Kin [address] [place] [address] + SLAUTER, PRAMOD Next of Kin Unknown Unavailable SLAUTER, PRAMOD Next of Kin Unknown Unavailable OHMS, CECILE Next of Kin [address] [place] [address] + SLAUTER, PRAMOD Next of Kin Unknown Unavailable SLAUTER, PRAMOD Next of Kin Unknown Unavailable OHMS, CECILE Next of Kin [address] [place] [address] + SLAUTER, PRAMOD Next of Kin Unknown Unavailable SLAUTER, PRAMOD Next of Kin Unknown Unavailable OHMS, CECILE Next of Kin Unknown + LANA JAY Next of Kin Unknown [phone] SLAUTER, RANDY Next of Kin Unknown [phone] OHMS, CECILE Next of Kin Unknown + LANA JAY Next of Kin Unknown [phone] SLAUTER, RANDY Next of Kin Unknown [phone] OHMS, CECILE Next of Kin [address] [place] [address] + SLAUTER, PRAMOD Next of Kin Unknown Unavailable SLAUTER, PRAMOD Next of Kin Unknown Unavailable OHMS, CECILE Next of Kin [address] [place] [address] + SLAUTER, PRAMOD Next of Kin Unknown Unavailable SLAUTER, PRAMOD Next of Kin Unknown Unavailable OHMS, CECILE Next of Kin [address] [place] [address] + SLAUTER, PRAMOD Next of Kin Unknown Unavailable SLAUTER, PRAMOD Next of Kin Unknown Unavailable OHMS, CECILE Next of Kin Unknown + LANA JAY Next of Kin Unknown [phone] SLAUTER, RANDY Next of Kin Unknown [phone] OHMS, CECILE Next of Kin [address] [place] [address] + SLAUTER, PRAMOD Next of Kin Unknown Unavailable SLAUTER, PRAMOD Next of Kin Unknown Unavailable OHMS, CECILE Next of Kin [address] [place] [address] + SLAUTER, PRAMOD Next of Kin Unknown Unavailable SLAUTER, PRAMOD Next of Kin Unknown Unavailable OHMS, CECILE Next of Kin [address] [place] [address] + SLAUTER, PRAMOD Next of Kin Unknown Unavailable SLAUTER, PRAMOD Next of Kin Unknown Unavailable OHMS, CECILE Next of Kin Unknown + JAY SCHWARTZ Next of Kin Unknown [phone] SLARANDY COFFMAN Next of Kin Unknown [phone] OHMS, CECILE Next of Kin [address] [place] [address] + SLAUTER, PRAMOD Next of Kin Unknown Unavailable SLAUTER, PRAMOD Next of Kin Unknown Unavailable IAN ROJAS Next of Kin Unknown + OHMS, CECILE Next of Kin [address] [place] [address] + SLAUTER, PRAMOD Next of Kin Unknown Unavailable SLAUTER, PRAMOD Next of Kin Unknown Unavailable Care Team Providers Care Application Support Administrator Name Role Phone CARMEN BOWMAN Attending Unavailable [...] Referring Unavailable NADERER, DIAZ Primary Care Unavailable Naderer, Diaz Primary Care Unavailable Randall Soria Attending Unavailable Randall Soria Admitting Unavailable Randall Soria Attending Unavailable Randall Soria Admitting Unavailable Naderer, Diaz Primary Care Unavailable Gary Miller Attending Unavail able Gary Miller Admitting Unavail able NADERER, DIAZ A Primary Care Unavailable PROBLEMS DATE TYPE CONDITION / CODE ATTENDING STATUS [facility] 05/15/2025 Unknown Posterior subcap sular polar age-related cataract, right eye / H25.041(ICD-10) Randall Soria [facility] 05/06/2025 Unknown Hypoxemia / R09.02(ICD-10) NA [facility] 03/13/2025 Unknown Cough / FREETEXT(AOF) LINDSAY BAPTISTE [facility] 03/13/2025 Unknown Wheezing / FREETEXT(AOF) OLIVA [facility] 01/01/2025 Unknown Essential (prima ry) hypertension / I10(ICD-10) FIONA KATELYN [facility] 07/22/2024 Unknown Type 2 diabetes mellitus with other specified complication / E11.69(ICD-10) KATELYN JAIMES [facility] 07/22/2024 Unknown Hyperlipidemia, unspecified / E78.5(ICD-10) FIONA [facility] 12/04/2024 Unknown Sleep Apnea / FREETEXT(AOF) TYSON OTTFUAD Guerra [facility] 10/27/2024 Unknown Nausea / R11.0(ICD-10) HUMBERTO JUAREZ [facility] 10/27/2024 Unknown Dizziness and gi ddiness / R42(ICD-10) [facility] Unknown Nausea with vomi ting, unspecified / R11.2(ICD-10) HUMBERTO CARRASCO [facility] 10/27/2024 Unknown Nausea / FREETEXT(AOF) [facility] Unknown Chronic diastoli c (congestive) heart failure / I50.32(ICD-10) KATELYN JAIMES [facility] 07/22/2024 Unknown Type 2 diabetes mellitus with hyperglycemia / E11.65(ICD-10) FIONA KATELYN [facility] 07/22/2024 Unknown 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 / Z79.4(ICD-10) FIONA KATELYN [facility] 10/07/2024 Unknown Shortness of Adriane ath / FREETEXT(AOF) FIONA KATELYN L [facility] 09/12/2024 Unknown Polyp of colon / K63.5(ICD-10) MAURIALIYA TUCKER Niurka [facility] 08/21/2024 Unknown Encounter for ga reening for malignant neoplasm of colon / Z12.11(ICD-10) FELISA KARELY [facility] 08/21/2024 Unknown Colon Cancer Scr eening / FREETEXT(AOF) FELISA [facility] 07/22/2024 Unknown Chronic respirat ory failure with hypoxia / J96.11(ICD-10) [facility] 08/06/2024 Unknown Morbid (severe) obesity due to excess calories / E66.01(ICD-10) [facility] 07/22/2024 Unknown Chronic obstruct prerna pulmonary disease with (acute) exacerbation / J44.1(ICD-10) CLAUDIA SANJIV [facility] 07/22/2024 Unknown Other chest pain / R07.89(ICD-10) CLAUDIA SANJIV L [facility] 06/28/2024 Unknown Chest pain, unsp ecified / R07.9(ICD-10) WILL CAGLE [facility] 06/28/2024 Unknown Chest Pain / FREETEXT(AOF) WILL CAGLE [facility] 06/26/2024 Unknown Pulm HTN / UNK(Unknown) LEONCIO SOTO [facility] 06/20/2024 Unknown Pulmonary hypert ension, unspecified / I27.20(ICD-10) FIONA KATELYN [facility] 02/08/2024 Unknown Other forms of d yspnea / R06.09(ICD-10) KATELYN JAIMES [facility] 06/20/2024 Unknown Hyperlipidemia / FREETEXT(AOF) KATELYN JAIMES [facility] 02/19/2024 Unknown Moderate persist ent asthma, uncomplicated / J45.40(ICD-10) LINDSAY BAPTISTE [facility] 02/08/2024 Unknown Solitary pulmona ry nodule / R91.1(ICD-10) LINDSAY BAPTISTE [facility] 12/21/2023 Unknown Obstructive slee p apnea (adult) (pediatric) / G47.33(ICD-10) LINDSAY BAPTISTE [facility] 06/13/2024 Unknown Follow-up / FREETEXT(AOF) LINDSAY BAPTISTE [facility] PROCEDURES No Procedure Records Found RESULTS GLUCOSE POCT GLUCOMETERS Collected: 05/15/2025 9:33 A M Status: F Source: [facility] TYPE CODE TESTS RESULT OUT OF RANGE REFERENCE UNITS LAB GLUPOC Glucose Poc Glucometers 99 mg/dL Result Comment: Random Gluco se Reference Range is dependent on time and content of last meal. Glucose of more than 200 mg/dL in a nonstressed, ambulatory subject supports the diagnosis of Diabetes Mellitus. LAB COMM1 Commemt1 Glu2: Cleaned Meter Result Comment: PERFORMED BY : [place] [address] [place] [address] PATHOLOGIST DIE MECHANIC CHANDA ROBERTS M.D. Performed By: #### GLULS ### # Point of Care testing , HGB A1C (GLYCO-HGB) Collected: 11/01/2024 8:51 AM Status: COMPLETED Source: [facility] TYPE CODE TESTS RESULT OUT [...] 321 mg/dL Performed By: #### HA1C #### [facility] ([id number]) [address] [facility], [address] [place] [address] URN MACROSCOPIC SMITHA Collected: 10/27/2024 5:08 PM Status: COMPLETED Source: [facility] TYPE CODE TESTS RESULT OUT [...] Abnormal NEG Performed By: #### NUM #### [facility] ([id number]) [address] [place] [address], [place] [address] VENOUS BLOOD GAS Collected: 10/27/2024 3:24 PM Status: COMPLETED Source: [facility] TYPE CODE TESTS RESULT OUT [...] SOURCE RoomAir Performed By: #### VBG #### [facility] ([id number]) [address] [place] [address], [place] [address] CBC AND AUTO DIFF Collected: 10/27/2024 3:13 PM Status: COMPLETED Source: [facility] TYPE CODE TESTS RESULT OUT [...] #### CBCA, CMP , 3040-3, 6873-4 #### [facility] ([id number]) [address] [place] [address] COMPREHENSIVE METABOLIC PANEL Collected: 2024 3:13 PM Status: COMPLETED Source: [facility] TYPE CODE TESTS RESULT OUT [...] #### TIFF DURBIN , 3040-3, 6873-4 #### [facility] ([id number]) [address] [place] [address] LIPASE Collected: 10/27/2024 3:13 PM S tatus: COMPLETED Source: [facility] TYPE CODE TESTS RESULT OUT OF RANGE REFERENCE UNITS LAB LIPA(LOINC) LIPASE 24 17-40 U/L Performed By: #### RAMAKRISHNA, TIFF , 3040-3, 6873-4 #### [facility] ([id number]) [address] [place] [address] BETAHYDROXYBUTYRATE Collected: 10/27/2024 3:[address] atus: COMPLETED Source: [facility] TYPE CODE TESTS RESULT OUT OF RANGE REFERENCE UNITS LAB KETB(LOINC) BetaHydroxybutyrate 1.14 High 0.02-0.2 7 mmol/L Performed By: #### CBCA, CMP , 3040-3, 6873-4 #### [facility] ([id number]) [address] [place] [address] SURGICAL PATHOLOGY Collected: 10:30 AM Status: COMPLETED Source: [facility] TYPE CODE TESTS RESULT OUT OF RANGE REFERENCE UNITS LAB P85-3440&rpt Surgical Pathology Result Comment: [facility] [address] [place] [address] Surgical Pathology Consultation Patient Name:YAMILA LOZADA:1980 (Age: 44)Gender:FTaken:09/12/2024Reported:09/17/2024Physician(s):Aliya Solorzano D.O. ([phone])Copy To: Rec. #:[id number]: #[id number] Final Pathologic Diagnosis Hepatic flexure polyp, biopsies: Fecal material, nondiagnostic. No colonic tissue present. Report Electronically Signed Out ssi/09/17/2024Taras Lara M.D. Interpretation performed at [facility], [address] [place] [address], License number: [id number]. Clinical History Screening Gross Description Received in formalin labeled adam LOZADA are pale-mims soft tissue fragments admixed with friable bits two material, 0.5 x 0.2 x 0.1 cm in aggregate. The specimen is filtered and entirely submitted in a single cassette. (1, ns, [id number],m4) DM. dm/09/13/2024WAK Specimen(s) Received Hepatic flexure polyp Fee Codes(s): 1; 15886 BASIC METABOLIC PANL Collected: 07/30/2024 11:2 7 AM Status: COMPLETED Source: [facility] TYPE CODE TESTS RESULT OUT [...] race coefficient. Performed By: #### BMP #### [facility] ([id number]) [address] [place] [address], [address] [place] [address] BEDSIDE GLUCOSE LAB Collected: 07/23/2024 12:18 PM Status: COMPLETED Source: [facility] TYPE CODE TESTS RESULT OUT OF RANGE REFERENCE UNITS LAB BEDG(LOINC) BEDSIDE GLUCOSE LAB 169 High 65-99 mg/dL BEDSIDE GLUCOSE LAB Collected: 07/23/2024 7:54 AM Status: COMPLETED Source: [facility] TYPE CODE TESTS RESULT OUT OF RANGE REFERENCE UNITS LAB BEDG(LOINC) BEDSIDE GLUCOSE LAB 260 High 65-99 mg/dL CBC AND AUTO DIFF Collected: 07/23/2024 6:01 AM Status: COMPLETED Source: [facility] TYPE CODE TESTS RESULT OUT [...] X10E9/L Performed By: #### CBCA, CMP , 63183-5, 07908-6 #### [facility] ([id number]) [address] [place] [address], [place] [address] COMPREHENSIVE METABOLIC PANEL Collected: 2023 6:01 AM Status: COMPLETED Source: [facility] TYPE CODE TESTS RESULT OUT [...] coefficient. Performed By: #### TIFF DURBIN , 74514-6, 49977-7 #### [facility] ([id number]) [address] [place] [address] PROCALCITONIN Collected: 07/23/2024 6:01 AM Status: COMPLETED Source: [facility] TYPE CODE TESTS RESULT OUT OF RANGE REFERENCE UNITS LAB PCAL(LOINC) PROCALCITONIN 0.20 High <0.05 ng/mL Result Comment: NOTE <0.50 ng/mL - Low risk of severe sepsis and/or septic shock. <2.00 ng/mL - Recommend retesting within 6-24 hours. >2.00 ng/mL - High risk of sepsis and/or septic shock. Performed By: #### TIFF DURBIN , 10812-9, 02927-2 #### [facility] ([id number]) [address] [place] [address] MAGNESIUM Collected: 07/23/2024 6:01 AM S tatus: COMPLETED Source: [facility] TYPE CODE TESTS RESULT OUT OF RANGE REFERENCE UNITS LAB MG(LOINC) MAGNESIUM 2.2 1.8-2.6 mg/dL Performed By: #### CBCA, [facility] , 25961-2, 83106-0 #### [facility] ([id number]) [address] [place] [address], [place] [address] BEDSIDE GLUCOSE LAB Collected: 07/22/2024 9:43 PM Status: COMPLETED Source: [facility] TYPE CODE TESTS RESULT OUT OF RANGE REFERENCE UNITS LAB BEDG(LOINC) BEDSIDE GLUCOSE LAB 311 High 65-99 mg/dL BEDSIDE GLUCOSE LAB Collected: 07/22/2024 5:11 PM Status: COMPLETED Source: [facility] TYPE CODE TESTS RESULT OUT OF RANGE REFERENCE UNITS LAB BEDG(LOINC) BEDSIDE GLUCOSE LAB 339 High 65-99 mg/dL BEDSIDE GLUCOSE LAB Collected: 07/22/2024 11:38 AM Status: COMPLETED Source: [facility] TYPE CODE TESTS RESULT OUT OF RANGE REFERENCE UNITS LAB BEDG(LOINC) BEDSIDE GLUCOSE LAB 363 High 65-99 mg/dL BEDSIDE GLUCOSE LAB Collected: 07/22/2024 7:31 AM Status: COMPLETED Source: [facility] TYPE CODE TESTS RESULT OUT OF RANGE REFERENCE UNITS LAB BEDG(LOINC) BEDSIDE GLUCOSE LAB 395 High 65-99 mg/dL CBC AND AUTO DIFF Collected: 07/22/2024 4:33 AM Status: COMPLETED Source: [facility] TYPE CODE TESTS RESULT OUT [...] X10E9/L Performed By: #### CBCA, CMP , 71357-8 #### [facility] ([id number]) [address] [place] [address], [place] [address] #### HA1C #### [facility] ([id number]) [address] [place] [address], [address] [place] [address] COMPREHENSIVE METABOLIC PANEL Collected: 2023 4:33 AM Status: COMPLETED Source: [facility] TYPE CODE TESTS RESULT OUT [...] a race coefficient. Performed By: #### RAMAKRISHNA [facility] , 22822-6 #### [facility] ([id number]) [address] [place] [address] #### HA1C #### [facility] ([id number]) [address] [place] [address], [facility] [address] [place] [address] MAGNESIUM Collected: 07/22/2024 4:33 AM S tatus: COMPLETED Source: [facility] TYPE CODE TESTS RESULT OUT OF RANGE REFERENCE UNITS LAB MG(LOINC) MAGNESIUM 1.8 1.8-2.6 mg/dL Performed By: #### RAMAKRISHNA [facility] , 27968-8 #### [facility] ([id number]) [address] [place] [address] #### HA1C #### [facility] ([id number]) [address] [place] [address], [address] [place] [address] HGB A1C (GLYCO-HGB) Collected: 07/22/2024 4:33 AM Status: COMPLETED Source: [facility] TYPE CODE TESTS RESULT OUT [...] in vivo glycation rates are affected. LAB EAG[facility] AVERAGE GLUCOSE 229 mg/dL Performed By: #### CBCA, [facility] , 54209-6 #### [facility] ([id number]) [address] [place] [address] #### HA1C #### [facility] ([id number]) [address] [place] [address], [address] [place] [address] BEDSIDE GLUCOSE LAB Collected: 07/22/2024 1:36 AM Status: COMPLETED Source: [facility] TYPE CODE TESTS RESULT OUT OF RANGE REFERENCE UNITS LAB BEDG([facility]) BEDSIDE GLUCOSE LAB 488 High Alert 65-99 mg/dL 3 HOUR TROP I, HIGH SENSITIVITY Collected: 07/05 11:15 PM Status: COMPLETED Source: [facility] TYPE CODE TESTS RESULT OUT OF RANGE REFERENCE UNITS LAB TNIHS3(LOINC) 3 HOUR TROP I, HIGH SENSITIVITY 3 <16 ng/L Performed By: #### 55137-9 # ### [facility] ([id number]) [address] [place] [address] 1 HOUR TROP I, HIGH SENSITIVITY Collected: 07/05 5:49 PM Status: COMPLETED Source: [facility] TYPE CODE TESTS RESULT OUT OF RANGE REFERENCE UNITS LAB TNIHS1(LOINC) 1 HOUR TROP I, HIGH SENSITIVITY 3 <16 ng/L Performed By: #### 22393-2 # ### [facility] ([id number]) [address] [place] [address] XR CHEST 1 VW Observed: 07/21/2024 5:04 PM Status: COMPLETED Source: [facility] XR CHEST 1 VW XR CHEST 1 VW IMPRESSION: Clinical Information: chest pain Comparison: 10/25/24. * No pulmonary edema or consolidation. * No effusions. * Stable heart size. * Mild elevation right hemidiaphragm. Finalized by Shama Avitia MD on 07/21/2024 5:08 PM SARS/FLU A+B/RSV BY NAAT/MOLECULAR Observed: 07/21/2024 4:46 PM Status: COMPLETED Source: [facility] FLU A PCR Negative (qualifier value) [...] operators who are performing tests using either Mashable DX or Skycross systems and is limited to laboratories that [...] specimen repeat. Fact Sheet for Healthcare Providers: https://www.fda.gov/media/050842/download Fact Sheet for Patients: https://www.fda.gov/media/344619/download Performed By: #### COVFLR ## ## [facility] ([id number]) [address] [place] [address], [place] [address] CBC AND AUTO DIFF Collected: 07/21/2024 4:40 PM Status: COMPLETED Source: [facility] TYPE CODE TESTS RESULT OUT [...] X10E9/L Performed By: #### CBCA, 480 66-5, [facility], 81116-6, 93197-8, THYR, 43819-8 #### [facility] ([id number]) [address] [place] [address] D DIMER Collected: 4:40 PM Status: COMPLETED Source: [facility] TYPE CODE TESTS RESULT OUT [...] if the patient's symptoms persist or worsen. [email or web address] Performed By: #### CBCA, 480 66-5, [facility], 78706-4, 66181-6, THYR, 61870-0 #### [facility] ([id number]) [address] [place] [address] BASIC METABOLIC PANL Collected: 07/21/2024 4:40 PM Status: COMPLETED Source: [facility] TYPE CODE TESTS RESULT OUT [...] Performed By: #### RAMAKRISHNA, 480 66-5, BMP, 52655-6, 30834-3, THYR, 56085-0 #### [facility] ([id number]) [address] [place] [address] MAGNESIUM Collected: 07/21/2024 4:40 PM S tatus: COMPLETED Source: [facility] TYPE CODE TESTS RESULT OUT OF RANGE REFERENCE UNITS LAB MG(LOINC) MAGNESIUM 2.0 1.8-2.6 mg/dL Performed By: #### RAMAKRISHNA, 480 66-5, BMP, 87867-7, 59464-3, THYR, 38891-1 #### [facility] ([id number]) [address] [place] [address] TROPONIN I, HIGH SENSITIVITY Collected: 4:40 PM Status: COMPLETED Source: [facility] TYPE CODE TESTS RESULT OUT OF RANGE REFERENCE UNITS LAB TNIHS(LOINC) TROPONIN I, HIGH SENSITIVITY 3 <16 ng/L Performed By: #### RAMAKRISHNA, 480 66-5, BMP, 14301-4, 87114-8, THYR, 55731-2 #### [facility] ([id number]) [address] [place] [address] THYROID PROFILE Collected: 07/21/2024 4:40 PM Status: COMPLETED Source: [facility] TYPE CODE TESTS RESULT OUT OF RANGE REFERENCE UNITS LAB TSH(LOINC) TSH 2.45 0.49-4.67 uIU/mL LAB FT4(LOINC) FREE T4 1.11 0.61-1.60 ng/dL Performed By: #### RAMAKRISHNA, 480 66-5, BMP, 83544-8, 80723-7, THYR, 56173-2 #### [facility] ([id number]) [address] [place] [address] BRN NATRIURETIC PEP Collected: 07/21/2024 4:40 PM Status: COMPLETED Source: [facility] TYPE CODE TESTS RESULT OUT OF RANGE REFERENCE UNITS LAB BNP(LOINC) BRN NATRIURETIC PEP 20 <100.0 pg/mL Performed By: #### CBCA, 480 66-5, BMP, 39683-8, 18322-6, THYR, 01897-1 #### [facility] ([id number]) [address] [place] [address]29 3 HOUR TROP I, HIGH SENSITIVITY Collected: 06/05 10:44 PM Status: COMPLETED Source: [facility] TYPE CODE TESTS RESULT OUT OF RANGE REFERENCE UNITS LAB TNIHS3(LOINC) 3 HOUR TROP I, HIGH SENSITIVITY 39 High <16 ng/L Result Comment: Elevations of hs-Troponin may be due to causes other than myocardial ischemia. Recommend serial hs-Troponin testing be performed. For the initial evaluation and management of chest pain patients, refer to the algorithms linked below. Emergency Patient: [email or web address] Inpatient: [email or web address] Performed By: #### [id number] # ### [facility] ([id number]) [address] [place] [id number] 1 HOUR TROP I, HIGH SENSITIVITY Collected: 06/05 8:51 PM Status: COMPLETED Source: [facility] TYPE CODE TESTS RESULT OUT OF RANGE REFERENCE UNITS LAB TNIHS1(LOINC) 1 HOUR TROP I, HIGH SENSITIVITY 35 High <16 ng/L Result Comment: Elevations of hs-Troponin may be due to causes other than myocardial ischemia. Recommend serial hs-Troponin testing be performed. For the initial evaluation and management of chest pain patients, refer to the algorithms linked below. Emergency Patient: [email or web address] Inpatient: [email or web address] Performed By: #### [id number] # ### [facility] ([id number]) [address] [place] [address], [place] [address] XR CHEST 1 VW Observed: 06/28/2024 7:57 PM Status: COMPLETED Source: [facility] XR CHEST 1 VW XR CHEST [...] Collected: 06/28/2024 7:44 PM Status: COMPLETED Source: [facility] TYPE CODE TESTS RESULT OUT [...] X10E9/L Performed By: #### DACIA DURBIN , 87893-5, 71022-7 #### [facility] ([id number]) [address] [place] [address], [place] [address] BASIC METABOLIC PANL Collected: 06/28/2024 7:44 PM Status: COMPLETED Source: [facility] TYPE CODE TESTS RESULT OUT [...] coefficient. Performed By: #### DACIA DURBIN , 43446-5, 51446-6 #### [facility] ([id number]) [address] [place] [address] TROPONIN I, HIGH SENSITIVITY Collected: 7:44 PM Status: COMPLETED Source: [facility] TYPE CODE TESTS RESULT OUT OF RANGE REFERENCE UNITS LAB TNIHS(LOINC) TROPONIN I, HIGH SENSITIVITY 32 High <16 ng/L Result Comment: Elevations of hs-Troponin may be due to causes other than myocardial ischemia. Recommend serial hs-Troponin testing be performed. For the initial evaluation and management of chest pain patients, refer to the algorithms linked below. Emergency Patient: [email or web address]&[email or web address]&uh=acaea Inpatient: [email or web address]/[email or web address]?[email or web address]&m=71717&uh=acaea Performed By: #### DACIA DURBIN , 00283-1, 00421-0 #### [facility] ([id number]) [address] [place] [address] D DIMER Collected: 7:44 PM Status: COMPLETED Source: [facility] TYPE CODE TESTS RESULT OUT [...] if the patient's symptoms persist or worsen. [email or web address]?d=[email or web address]&l=57789&uh=acaea Performed By: #### DACIA DURBIN , 09768-7, 81654-0 #### [facility] ([id number]) [address] [place] [address] POC CHEM7 Collected: 06/26/2024 8:06 AM S tatus: COMPLETED Source: [facility] TYPE CODE TESTS RESULT OUT [...] coefficient. Performed By: #### IELGBC ## ## [facility] ([id number]) [address] [place] [address] COMPLETE BLOOD COUNT Collected: 06/26/2024 8:05 AM Status: COMPLETED Source: [facility] TYPE CODE TESTS RESULT OUT [...] 7-12 fL Performed By: #### CBC #### [facility] ([id number]) [address] [facility] [facility] [place] [address] CODING SUMMARY Observed: 06/20/2024 2:08 PM Status: F Source: [facility] HTMLBase 64 [id number] ZXJu [file] [id number]+[id number]== INPATIENT PATIENT SUMMARY Observed: 06/04 11:05 AM Status: C Source: [place] [address] Patient Discharge Instructions Name: YAMILA LOZADA : 1980 Patient Address: [address] [place] [address] Primary Care Provider: Name: DIAZ BETTS After you are discharged if you find you have any questions, please, call [phone] ext [phone] to speak to a nurse. Discharge Diagnosis: Carpal tunnel syndrome, right Prescription Information: If you have been given a prescription for narcotics, seek immediate medical attention if you have any difficulty breathing or any sudden status changes such as confusion and sleepiness. If you or anyone you know is experiencing suicidal thoughts, mental health, alcohol and/or drug addiction problems; contact the [facility] 27/03 Crisis Hotline -Text 4HMYQ sh 207557. If you received any narcotics, sedation, or [...] With: Address: When: Rosenda Snowden [address] [place] [address] Business (1) 06/24/2024 10:15 AM [...] every day. Durable Medical Equipment for Prescription ([employer] CEDRIC SENSOR 14D) APPLY 1 SENSOR TO [...] every day. Durable Medical Equipment for Prescription ([employer] CEDRIC SENSOR 14D) APPLY 1 SENSOR TO [...] 3. DO NOT lift heavy objects or international account executive forcefully with your hand. 4. Change your [...] or concerns, please call the office at [phone]. 7. Follow up as scheduled. Viruses or [...] Observed: 06/17/2024 11:05 AM Status: C Source: [facility] DR[facility] MILLER[facility]S POST OPERAT PRERNA CARPAL TUNNEL INSTRUCTIONS: SURGEON'S WRITTEN INSTRUCTIONS: 1. Keep your hand elevated above your elbow for the first 24 hours after surgery. 2. Wiggle your fingers frequently while awake. 3. DO NOT lift heavy objects or international account executive forcefully with your hand. 4. Change your [...] or concerns, please call the office at [phone]. 7. Follow up as scheduled. INPATIENT CLINICAL SUMMARY Observed: 11:05 AM Status: C Source: [facility] SURGERY Clinical Discharge Summary PERSON INFORMATION Name YAMILA LOZADA Age 43 Years 1980 Sex FEMALE Language Yakut PCP DIAZ BETTS Marital Status Phone Med Service Ambulatory Surgery N [id number] Acct# Arrival 06/17/2024 08:13:31 Visit Reason SURGERY - RIGHT CARPAL TUNNEL RELEASE Acuity LOS 171 20:16 Address: [address] [place] [address] Comment: PROVIDER INFORMATION VITALS INFORMATION Vital Sign [...] every day. Durable Medical Equipment for Prescription ([employer] CEDRIC SENSOR 14D) APPLY 1 SENSOR TO [...] every day. Durable Medical Equipment for Prescription ([employer] SENSOR 14D) APPLY 1 SENSOR TO BACK [...] every day. Durable Medical Equipment for Prescription (EPSE SENSOR 14D) APPLY 1 SENSOR TO BACK [...] every day. Durable Medical Equipment for Prescription (EPSE SENSOR 14D) APPLY 1 SENSOR TO BACK [...] Follow up: With: Address: When: Rosenda Snowden [address] [place] [address] [facility] (1) 06/24/2024 10:15 AM DIAGNOSIS Carpal tunnel syndrome, right Comment: PHYS DOC NOTES ANESTHESIA NOTE Observed: 06/17/2024 10:47 AM Status: F Source: [facility] Patient: YAMILA LOZADA Age: 43 years Sex: FEMALE : 1980 Associated Diagnoses: None Author: Olivier Lares MD Postoperative Information Post Operative Note: Operative Day. Anesthetic utilized: Monitored anesthesia care. Health Status Allergies: Allergic Reactions (All) Moderate Bactrim- Rash. Canceled/Inactive Reactions (All) No known allergies Problem list: All Problems Anxiety / SNOMED CT 15988366 / Confirmed Chronic hypoxic respiratory failure / SNOMED CT 4465515791 / Confirmed Depression / SNOMED CT 66637209 / Confirmed Developmental delay / SNOMED CT 513746416 / Confirmed Diabetes / SNOMED CT 617669145 / Confirmed GERD (gastroesophageal reflux disease) / SNOMED CT 158116445 / Confirmed High blood cholesterol / SNOMED CT 15906968 / Confirmed HTN (hypertension) / SNOMED CT 5549784884 / Confirmed Irritable bowel syndrome (IBS) / SNOMED CT 26320613 / Confirmed Pulmonary nodule / SNOMED CT 6970978449 / Confirmed Obesity / SNOMED CT 8964108821 / Confirmed Physical Examination Vital Signs (last [...] Observed: 06/17/2024 10:37 AM Status: F Source: [facility] Procedure: Decompression of median nerve right wrist [...] on: 06/17/2024 10:38 EDT] Gary Miller DO [facility] [place] PREOPERATIVE RECORD Observed: 06/17 10:29 AM Status: F Source: [facility] Pre-Op Record Summary Primary Physician: Gary Miller DO Finalized Date/Time: 06/17/24 13:04:23 Pt. Name: YAMILA LOZADA/Sex: 1980 FEMALE Med Rec #: [id number] Physician: Gary Miller DO Financial #: [id number] Pt. Type: D Room/Bed: / Admit/Disch: 06/17/24 08:13:31 - Institution: Pre-Op Case Times [facility] Pre-Care Text: Patient will be optimally prepared [...] Signed By: Jennyfer Gresham RN 06/17/24 13:04 [facility] INTRAOPERATIVE RECORD Observed: 10:29 AM Status: C Source: [facility] Intra-Op Record Summary Primary Physician: Gary Miller DO Finalized Date/Time: 06/20/24 08:21:54 Pt. Name: YAMILA LOZADA/Sex: 1980 FEMALE Med Rec #: [id number] Physician: Gary Miller DO Financial #: [id number] Pt. Type: D Room/Bed: / Admit/Disch: 06/17/24 08:13:31 - 06/17/24 11:42:00 Institution: Case Times [facility] Entry 1 Patient In Room Time 06/17/24 [...] Role Performed Surgeon - Primary Anesthesiologist of Office Services Specialist Record Time In 06/17/24 10:22:00 06/17/24 10:16:00 06/17/24 10:16:00 Time Out 06/17/24 10:37:00 06/17/24 10:43:00 06/17/24 10:43:00 Procedure Carpal Tunnel Carpal Tunnel Carpal Tunnel Release(Right) Release(Right) Release(Right) Last Modified By: Jessica Ordonez RN, Diane RN Kokinda, Diane RN 06/17/24 10:47:37 06/17/24 10:47:37 06/17/24 10:47:37 Entry 4 Entry 5 Case Attendee Heaven Lainez ConiGerri PURCHASING/RECEIVING PURCHASING/RECEIVING Role Performed Scrub Personnel Nurse Rn Bsn Time In 06/17/24 10:16:00 06/17/24 10:16:00 Time [...] Out Time 06/17/24 10:28:00 Participants Gerri Newberry PURCHASING/RECEIVING, Jessica Ordonez RN Last Modified By: Jessica [...] By Jessica Ordonez RN Scrub 10% Povidone-Iodine [place] Prep Area (Im.270) Hand, Forearm Prep Area [...] Time 06/17/24 10:02:00 Performed By Heaven Lainez PURCHASING/RECEIVING Counts Verification Final Counts Items Included in Sponges, Sharps Final Count Method Manual Final Count Final Count Status Correct Final Counts Jessica Ordonez RN, Performed By Heaven Lainez PURCHASING/RECEIVING Final Count Time 06/17/24 10:31:00 Surgeon notified [...] Time 9 Applied By Gerri Newberry CSFDesire PURCHASING/RECEIVING Removed By Gerri Newberry PURCHASING/RECEIVING Outcome Met (O.60) Yes Last Modified By: [...] Observed: 06/04 10:29 AM Status: C Source: [facility] Phase II Record Summary Primary Physician: Gary Miller DO Finalized Date/Time: 07/16/24 07:39:56 Pt. Name: YAMILA LOZADA /Sex: 1980 FEMALE Med Rec #: [id number] Physician: Gary Miller DO Financial #: [id number] Pt. Type: D Room/Bed: / Admit/Disch: 06/17/24 08:13:31 - 06/17/24 11:42:00 Institution: Phase II Case Times [facility] Pre-Care Text: Patient is free from s/s [...] Observed: 06/17/2024 10:13 AM Status: F Source: [facility] Patient: YAMILA LOZADA Age: 43 years Sex: [...] list: All Problems Anxiety / SNOMED CT 20838452 / Confirmed Chronic hypoxic respiratory failure / SNOMED CT 9032948044 / Confirmed Depression / SNOMED CT 22726731 / Confirmed Developmental delay / SNOMED CT 770953575 / Confirmed Diabetes / SNOMED CT 439972501 / Confirmed GERD (gastroesophageal reflux disease) / SNOMED CT 229629125 / Confirmed High blood cholesterol / SNOMED CT 34339230 / Confirmed HTN (hypertension) / SNOMED CT 8366864729 / Confirmed Irritable bowel syndrome (IBS) / SNOMED CT 41948173 / Confirmed Pulmonary nodule / SNOMED CT 9844217953 / Confirmed Obesity / SNOMED CT 5166598312 / Confirmed Histories Family History: Heart attack Mother COPD (chronic obstructive pulmonary disease) Mother Procedure history: Carpal tunnel (189970462) on 09/25/2023 at 43 Years. Comments: 09/25/2023 8:27 Jennyfer Benoit RN left TL - Tubal ligation (877026870) on 03/31/2023 at 42 Years. Genital warts (877083694). Cholecystectomy (35716874). Decompression of ulnar nerve (389774410). Comments: 04/16/2024 10:03 MARZENA Shrestha RN, Kevin [...] Oriented. Review / Management Laboratory Results Plan [place] [employer] Anesthesiologists (ASA) physical status classification: [...] LEVEL Collected: 9:16 AM Status: F Source: [facility] TYPE CODE TESTS RESULT OUT OF RANGE REFERENCE UNITS LAB 91301656(LOINC) Glucose, POC 43 Abnorma l Alert 74-118 mg/dL Result Comment: OPR_ID=IN_[facility],T[facility] FLAG = False,Meter:[id number] Global Compensation Analyst:Jojo Dangelo Performed By: #### [id number] #### [facility] (DEFAULT) [address] [place] [address] HISTORY AND PHYSICAL Observed: 8:14 AM Status: F Source: [facility] [id number]#1.00OTGTIFF CONSENT FORMS Observed: 06/17/2024 8:13 AM Status: F Source: [facility] [id number]#1.00OTGTIFF OUTSIDE RECORDS Observed: 06/17/2024 8:13 AM Status: F Source: [facility] [id number]#1.00OTGTIFF DISCHARGE INSTRUCTIONS Observed: 8:13 AM Status: F Source: [facility] [id number]#1.00OTGTIFF PROGRESS NOTE - NURSE Observed: 06/14/20 10:48 AM Status: C Source: [facility] Pre-op call made- pt given a rrival time of 0800 on 06-17-2024. 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 12/13/2011 DRUG~NON-CBOR D/490238792(S NOMED CT) SULFAMETHOXAZOLE -TRIMETHOPRIM Hives~Itching~Othe r [facility] Drug/35022994 3(SNOMED CT) Bactrim 964402830 [facility] l ENCOUNTERS ADMIT/DISCHARGE ACCOUNT NUMBER ADMITTING ENCOUNTER CLASS LOCATION SOURCE 06/03/2025/06/03/20 [id number] Ambulatory Building:[facility] 05/26/2025/05/26/20 [id number] Ambulatory Building:NOM S [facility] OB [facility] 05/15/2025/05/15/20 25 [id number] [facility] 05/14/2025/05/14/20 [id number] Ambulatory Buildin A [facility] 05/06/2025 [id number] Ambulatory Building:PT H _[facility] 05/01/2025/05/01/20 [id number] Randall [facility]oria [facility] 04/22/2025/04/22/20 [id number] [facility] 04/14/2025/04/14/20 25 [id number] Ambulatory Building:NOM S BCP OB [facility] 04/10/2025/04/11/20 25 [id number] Ambulatory Building:NOM [facility] 04/02/2025/04/02/20 [id number] [facility] 03/26/2025/03/26/20 25 [id number] Ambulatory Building:NOM SCIPT [facility] 03/21/2025/03/21/20 25 [id number] Ambulatory Building:NOM SCIPT [facility] 03/17/2025/03/17/20 25 [id number] Ambulatory Building:NOM S BCP OB [facility] EP[facility] 03/14/2025/03/14/20 25 [id number] Ambulatory Building:NOM S ORTHO [facility] 03/13/2025/03/13/20 25 [id number] Ambulatory Buildin A [facility] 02/25/2025/02/26/20 25 [id number] Ambulatory Building:FBO [facility] 02/25/2025/02/26/20 25 [id number] Ambulatory Building:[facility] EP[facility] 02/10/2025/02/11/20 25 [id number] Ambulatory Building:[facility] 02/03/2025/02/04/20 25 [id number] Ambulatory Building:PF _PF [facility] 01/03/2025/01/04/20 25 [id number] Ambulatory Buildin [address] [facility] 12/04/2024/12/05/19 25 [id number] Ambulatory Buildin A [facility] 11/07/2024/11/08/19 25 [id number] Ambulatory Building:[facility] 11/01/2024/11/01/19 25 [id number] Ambulatory Building:PFM _LAB [facility] 10/28/2024/10/28/19 25 [id number] Ambulatory Building:[facility] 10/27/2024/10/27/19 25 [id number] Emergency Building:PFM _EDRoom: 12Bed: [address] [facility] 10/09/2024/10/09/19 25 [id number] Ambulatory Building:[facility] 10/07/2024/10/07/19 25 [id number] Ambulatory Buildin [address] [facility] 09/12/2024/09/12/19 25 [id number] ALIYA SOLORZANO Inpatient Encounter Building:PFM _PERIOPRoom: POOLBed: POOL [facility] 09/05/2024/09/05/19 [id number] Ambulatory Building:PFM _PAT [facility] 08/21/2024/08/21/20 24 [id number] Ambulatory Buildin 80 [facility] 08/06/2024 [id number] Ambulatory Building:PF M _SLE [facility] 08/06/2024/08/06/20 24 [id number] Ambulatory Building:NOM S BCP OB [facility] 08/06/2024/08/06/20 24 [id number] Ambulatory Building:CWM FAMMED [facility] 07/30/2024/07/30/20 24 [id number] Ambulatory Building:PFM _LAB [facility] 07/21/2024/07/23/20 24 [id number] JACK HOLLAND Ambulatory Building:PF _ACUTERoom: 211Bed: [address] [facility] 07/18/2024/07/18/20 24 [id number] Ambulatory Buildin [address] [facility] 07/15/2024/07/15/20 24 [id number] Ambulatory Building:FBO [facility] 07/04/2024/07/04/20 24 [id number] Ambulatory Buildin [address] [facility] 06/28/2024/06/29/20 24 [id number] Emergency Building:PF _EDRoom: 8Bed: [address] [facility] 06/26/2024/06/26/20 24 [id number] LEONCIO SOTO Ambulatory Building:PTH _CVRRoom: CVU BAYBed: CVU [facility] 06/24/2024/06/24/20 24 [id number] Ambulatory Building:FBO [facility] 06/20/2024/06/20/20 24 [id number] Ambulatory Buildin [address] [facility] 06/17/2024/06/17/20 24 [id number] Gary Miller Terrance [facility] 06/13/2024/06/13/20 [id number] Ambulatory Buildin A [facility] PPG PAYERS ENCOUNTER GUARANTOR PAYER SUBSCRIBER SOURCE 06/03/2025 YAMILA MYERS: [address] [address]Nxb: (HP) [place]: [id number] e Date:2020-12-03 YAMILA MYERS: [id number] [address] [place] [address] [facility] 05/26/2025 YAMILA FELIZB: [address] [address]Ori: (HP) [place]: [id number] e Date:2020-12-03 YAMILA MYERS: [id number] [address] [place] [address] [facility] 05/15/2025 Yamila Lozada[address] [address]Ngj: (HP) Primary Insurance:MedicaidPo licy Number: [id number] e Date:2024-12-17 Yamila Myers: [id number] [address] [address]Cug: (HP) [facility] 05/15/2025 Secondary Insurance:Self PayPolicy Number: Effective Date:2024-12-17 [facility] YAMILA MYERS: [address] [address]Zsa: (HP) Primary Insurance:[place] MED[place]IDPolicy Number: [id number] e Date:2020-12-03 YAMILA MYERS: [id number] [address] [address] [facility] 05/06/2025 YAMILA MYERS: [facility] [address], [place] [address]Qei: (HP) Primary Insurance[place] MEDICAIDPolicy Number: [id number] e Date:2020-12-03 YAMILA MYERS: [id number] [facility] [address] [place] [address] [facility] 05/01/[address], [place] [address]Ruq: (HP) Primary Insurance:Self PayPolicy Number: Effective Date:2024-12-17 [facility] 04/22/2025 YAMILA MYERS: [facility] [address], [place] [address]Ecj: (HP) Primary Insurance:[place] Number: [id number] e Date:2020-12-03 YAMILA MYERS: [id number] [facility] [address], [place] [address] [facility] 04/14/2025 YAMILA MYERS: [facility] [address], [place] [address]Ipf: (HP) Primary Insurance:[place]: [id number] e Date:2020-12-03 YAMILA MYERS: [id number] [facility] [address], [place] [address] [facility] 04/10/2025 YAMILA MYERS: [facility] [address] [place] [address], [place] [address]Rim: (HP) Primary Insurance[place] Number: [id number] e Date:2020-12-03 YAMILA MYERS: [id number] [facility] [address] [place] [place] [address] [facility] 04/02/2025 YAMILA MYERS: [facility] [address], [place] [address]Ukd: (HP) Primary Insurance:[place] Number: [id number] e Date:2020-12-03 YAMILA FELIZB: [id number] [facility] [address], [place] [address] [facility] 03/26/2025 YAMILA FELIZB: [facility] [address] [place] [address], [place] [address]Yek: (HP) Primary Insurance:[place] Number: [id number] e Date:2020-12-03 YAMILA MYERS: [id number] [address] [place] [address] [facility] 03/21/2025 YAMILA FELIZB: [facility] [address] [place] [address], [place] [address]Jmc: (HP) Primary Insurance:[place]: [id number] e Date:2020-12-03 YAMILA MYERS: [id number] [facility] [address] [address] [facility] 03/17/2025 YAMILA MYERS: [address] [address]Eee: (HP) Primary Insurance:[place] Number: [id number] e Date:2020-12-03 YAMILA MYERS: [id number] [facility] [address], [place] [address] [facility] 03/14/2025 YAMILA MYERS: [facility] [address] [place] [address], [place] [address]Oqs: (HP) Primary Insurance:[place] Number: [id number] e Date:2020-12-03 YAMILA MYERS: [id number] [facility] [address], [place] [address] [facility] 03/13/2025 YAMILA MYERS: [facility] [address], [place] [address]Sij: (HP) Primary Insurance:[place] MEDICAIDPolicy Number: [id number] e Date:2020-12-03 YAMILA MYERS: [id number] [facility] [address], [place] [address] [facility] 02/25/2025 YAMILA MYERS: [address], [place] [address]Fnd: (HP) Primary Insurance:[place] Number: [id number] e Date:2020-12-03 YAMILA MYERS: [id number] [facility] [address] [address] [facility] 02/25/2025 YAMILA MYERS: [address], [place] [address]Jio: (HP) Primary Insurance:[place] Number: [id number] e Date:2020-12-03 YAMILA MYERS: [id number] [address] [place] [address] [facility] 02/10/2025 YAMILA MYERS: [address], [place] [address]Jqo: (HP) Primary Insurance:[place]: [id number] e Date:2020-12-03 YAMILA MYERS: [id number] [facility] [address], [place] [address] [facility] 02/03/2025 YAMILA MYERS: [address], [place] [address]Frt: (HP) Primary Insurance:[place] MED[place]Policy Number: [id number] e Date:2020-12-03 YAMILA MYERS: [id number] [facility] [address] [address] [facility] 01/03/2025 YAMILA MYERS: [address] [address] [address]Dhu: (HP) [place] Insurance:[place] MEDICAIDPolicy Number: [id number] e Date:2017-01-31 YAMILA MYERS: [id number], [place] [address] [facility] 12/04/2024 YAMILA MYERS: [address], [place] [address]Eaj: (HP) [place] Insurance:[place] MEDICAIDPolicy Number: [id number] e Date:2017-01-31 YAMILA MYERS: [id number], [place] [address] [facility] 11/07/2024 YAMILA MYERS: [address], [place] [address]Map: (HP) Primary Insurance:[place]ICAID [place] Number: [id number] e Date:2020-12-03 YAMILA MYERS: [id number] [address] [address] [facility] 11/01/2024 YAMILA MYERS: [address], [place] [address]Mos: (HP) [place] Insurance:[place] MEDICAIDPolicy Number: [id number] e Date:2017-01-31 YAMILA MYERS: [id number], [place] [address] [facility] 10/28/2024 YAMILA MYERS: [address] [address]Inl: (HP) [place] Insurance:[place]ID [place] Number: [id number] e Date:2020-12-03 YAMILA MYERS: [id number] [address], [place] [address] [facility] 10/27/2024 YAMILA FELZIB: [address], [place] [address]Nbs: (HP) [place] Insurance:[place] MEDICAIDPolicy Number: [id number] e Date:2017-01-31 YAMILA MYERS: [id number], [place] [address] [facility] 10/09/2024 YAMILA MYERS: [address] [address]Jhn: (HP) Primary Insurance:[place]ICAID [place]Policy Number: [id number] e Date:2020-12-03 YAMILA MYERS: [id number] [address] [address] [facility] 10/07/2024 YAMILA MYERS: [address], [place] [address]Uxr: (HP) [place] MEDICAIDPolicy Number: [id number] e Date:2017-01-31 YAMILA MYERS: [id number], [place] [address] [facility] 09/12/2024 YAMILA MYERS: [address], [place] [address]Pfz: (HP) [place] MED[place]Policy Number: [id number] e Date:2017-01-31 YAMILA MYERS: [id number], [place] [address] [facility] 09/05/2024 YAMILA MYERS: [address], [place] [address]Env: (HP) [place] MEDICAIDPolicy Number: [id number] e Date:2017-01-31 YAMILA MYERS: [id number], [place] [address] [facility] 08/21/2024 YAMILA MYERS: [address], [place] [address]Qjd: (HP) [place] MEDICAIDPolicy Number: [id number] e Date:2017-01-31 YAMILA MYERS: [id number] [address] [address] [facility] 08/06/2024 YAMILA MYERS: [address], [place] [address]Wob: (HP) [place] Insurance[place] MEDICAIDPolicy Number: [id number] e Date:2017-01-31 YAMILA MYERS: [id number], [place] [address] [facility] 08/06/2024 YAMILA MYERS: [address], [place] [address]Nda: (HP) Primary Insurance:MEDICAID [place]Policy Number: [id number] e Date:2020-12-03 YAMILA MYERS: [id number] [address], [place] [address] [facility] 08/06/2024 YAMILA MYERS: [address], [place] [address]Jpp: (HP) Primary Insurance:MED[place]ID [place] Number: [id number] e Date:2020-12-03 YAMILA MYERS: [id number] [address], [place] [address] [facility] 07/30/2024 YAMILA FELIZB: [address], [place] [address]Lwk: (HP) [place] MEDICA[place]Policy Number: [id number] e Date:2017-01-31 YAMILA MYERS: [id number], [place] [address] [facility] 07/21/2024 YAMILA MYERS: [address], [place] [address]Vte: (HP) [place] MEDICA[place]Policy Number: [id number] e Date:2017-01-31 YAMILA MYERS: [id number] [address], [place] [address] [facility] 07/18/2024 YAIMLA MYERS: [address], [place] [address]Sdf: (HP) [place] Insurance:[place] MEDICAIDPolicy Number: [id number] e Date:2017-01-31 YAMILA MYERS: [id number], [place] [address] [facility] 07/15/2024 YAMILA MYERS: [address], [place] [address]Ina: (HP) Primary Insurance:MEDICAID [place]Policy Number: [id number] e Date:2020-12-03 YAMILA MYERS: [id number] [address], [place] [address] [facility] 07/04/2024 YAMILA MYERS: [address], [place] [address]Moj: (HP) [place] MEDICAIDPolicy Number: [id number] e Date:2017-01-31 YAMILA MYERS: [id number], [place] [address] [facility] 06/28/2024 YAMILA FELIZB: [address], [place] [address]Pfa: (HP) [place] MEDICAIDPolicy Number: [id number] e Date:2017-01-31 YAMILA MYERS: [id number], [place] [address] [facility] 06/26/2024 YAMILA MYERS: [address], [place] [address]Xyp: (HP) [place] MEDICAIDPolicy Number: [id number] e Date:2017-01-31 YAMILA MYERS: [id number], [place] [address] [facility] 06/24/2024 YAMILA MYERS: [address], [place] [address]Hht: (HP) Primary Insurance:MEDICAID [place]Policy Number: [id number] e Date:2020-12-03 YAMILA MYERS: [id number] [address], [place] [address] [facility] 06/20/2024 YAMILA MYERS: [address], [place] [address]Fal: (HP) [place] MEDICAIDPolicy Number: [id number] e Date:2017-01-31 YAMILA MYERS: [id number], [place] [address] [facility] 06/17/2024 YAMILA MYERS: [address], [place] [address] Primary Insurance:MEDICAID [place]Policy Number: [id number] e Date:[id number] Name:MedicaidPO Amna Roque[address] [place], [place] [address], [place] [address]CL: YAMILA MYERS: [id number] [address] [place] [address]Ugm: () [facility] 06/13/2024 YAMILA MYERS: [address], [place] [address]Gsn: () Primary Insurance:[place] MEDICAIDPolicy Number: [id number] e Date:2017-01-31 YAMILA MYERS: [id number], [place] [address] [facility] [employer]
--- OUTSIDE RECORDS SUMMARY | 2025-06-03 13:30 | XMS_ITS | Encounter Summary ---
Author Organization [facility] Address [address] [place] [address] Care Team Providers Care Supervisor Multifocal Lens Name Role Phone Diaz Dalton MD Primary Care Provider [phone] Reason for Visit * Reason Comments Pre-op Visit Encounter Details Date Type Department Care Team ([facility] Contact Info) Description 06/03/2025 1:30 PM EDT [facility] [address] [place] [address] Cholo Strong PA [address] [place] [address] Pre-op examination (Primary Dx) Social History Tobacco Use Types [...] Sign Reading Time Taken Comments Blood Pressure - - Pulse - - Temperature - - Respiratory Rate - - Oxygen Saturation - - Inhaled Oxygen Concentration - - Weight 93.4 kg (206 lb) 06/03/2025 1:24 PM EDT Height 154.9 cm (5' 1 ) 06/03/2025 1:24 PM EDT Body Mass Index 38.92 06/03/2025 1:24 PM EDT documented in this encounter Progress Notes * ROSAURA Rosado - 06/03/2025 1:30 PM EDT Images from the original note were not included. GENERAL HISTORY AND PHYSICAL: NAME: Carissa Miller : 1980 HISTORY OF PRESENT ILLNESS: Carissa Miller is an 44 y.o. @ female. Here for surgery instructions left knee arthroscopy @ [facility]. PAST MEDICAL HISTORY: Past Medical History: Diagnosis Date Ankle fracture Anxiety and depression At low risk for fall Bilateral leg edema Chest pain, central Chronic left shoulder pain Chronic pain Chronic respiratory failure (HCC) Dyslipidemia Epilepsy (HCC) Childhood epilepsy JOHN (generalized anxiety disorder) Genital warts GERD (gastroesophageal reflux disease) History of being hospitalized pneumonia, diabetes, infection [10/29/21-11/05/21] History of medical problems mild mental retardation Hyperlipidemia Insomnia, persistent Irritable bowel syndrome with diarrhea MDD (major depressive disorder), recurrent episode, mild Migraine without aura and without status migrainosus, not intractable Morbid obesity with BMI of 40.0-44.9, adult ([facility]) Nocturnal hypoxemia Nonsmoker OAB (overactive bladder) Obesity JOSE M (obstructive sleep apnea) Postoperative urinary retention Primary osteoarthritis of left knee Seasonal allergies Type 2 diabetes mellitus with diabetic polyneuropathy, with long-term current use of insulin (HCC) Type 2 diabetes mellitus with hyperglycemia, with long-term current use of insulin (HCC) Type 2 diabetes mellitus without complication ([facility]) Vitamin D deficiency PAST SURGICAL HISTORY: Past Surgical History: Procedure Laterality Date ADENOIDECTOMY [...] 12/29/2017 Diagnostic laparoscopy LAPAROTOMY OVARIAN CYSTECTOMY 03/31/2023 CT ARTHROCENTESIS ASPIR&/INJ MAJOR JT/BURSA W/O US Right Arthrocentesis of the right knee joint REQUEST FOR SCREENING COLONOSCOPY 04/01/2019 Colonoscopy, screening SALPINGECTOMY Bilateral 03/31/2023 FERREIRA WART REMOVAL 08/14/2015 genital wart removal TONSILLECTOMY SOCIAL HISTORY: Social History Occupational History Not on file Tobacco Use Smoking status: Never Smokeless tobacco: Never Substance and Sexual Activity Alcohol use: Never Comment: Caffeine: 1-2 cups/day , mountain dew occasionally Drug use: Never Sexual activity: Yes control/protection: Female Sterilization ALLERGIES: Allergies Allergen Reactions Sulfamethoxazole-Trimethoprim Hives and Itching MEDICATIONS: Current Outpatient Medications Medication Instructions acyclovir [...] (CELEXA) 40 mg, Oral, Daily Continuous Glucose Tree Warden (FreeStyle Crystal 3 [place]) device 1 Application, Does not apply, Continuous Continuous Glucose Sensor (FreeStyle Crystal 3 Sensor) misc USE TO MONITOR BLOOD SUGAR DIRECTED. CHANGE SENSOR EVERY 14 DAYS. Continuous Glucose Sensor (FreeStyle Crystal 3 Sensor) misc USE TO MONITOR BLOOD SUGAR DIRECTED. CHANGE [...] UNITS DAILY* insulin pen needle (Droplet Pen [place]) 32G x 4 mm misc Use as [...] Daily RT Trulicity 1.5 mg, Subcutaneous, Weekly REVIEW OF SYSTEMS: Review of Systems Constitutional: Negative for fatigue, fever and unexpected weight change. Eyes: Positive for redness (right eye, recent cartaract surgery). Gastrointestinal: Negative for abdominal pain. Denies Indigestion Musculoskeletal: See note: Skin: Negative for color change and rash. Neurological: Negative for light-headedness and numbness. Vitals: Body mass index is 38.92 kg/m??. PHYSICAL EXAM: Physical Exam Constitutional: General: She is not in acute distress. Appearance: Normal appearance. HENT: Head: Normocephalic and atraumatic. Right Ear: External ear normal. Left Ear: External ear normal. Nose: Nose normal. No rhinorrhea. Mouth/Throat: Mouth: Mucous membranes are moist. Pharynx: No posterior oropharyngeal erythema. Eyes: Extraocular Movements: Extraocular movements intact. Conjunctiva/sclera: Conjunctivae normal. Cardiovascular: Rate and Rhythm: Normal rate and regular rhythm. Pulses: Normal pulses. Heart sounds: No murmur heard. Pulmonary: Effort: Pulmonary effort is normal. No respiratory distress. Breath sounds: Normal breath sounds. No wheezing or rhonchi. Abdominal: Palpations: Abdomen is soft. Tenderness: There is no abdominal tenderness. Musculoskeletal: Cervical back: Normal range of motion and neck supple. Lymphadenopathy: Cervical: No cervical adenopathy. Skin: General: Skin is warm and dry. Findings: No erythema or rash. Neurological: General: No focal deficit present. Mental Status: She is alert and oriented to person, place, and time. Psychiatric: Mood and Affect: Mood normal. Behavior: Behavior normal. Orders Placed This Encounter Procedures Basic metabolic panel Standing Status: Future Number of Occurrences: 1 Expected Date: 06/03/2025 Expiration Date: 06/03/2026 Print requisition?: No ASSESSMENT: ICD-10-CM 1. Pre-op examination Z01.818 Basic metabolic panel Basic metabolic panel Discussed patient's need for a front wheel walker: The patient has mobility limitations that significantly impair their ability to participate in activities of daily living without the risk of fall. The patient would benefit from this walker to reasonably complete activities of daily living such asprepping and cooking meals, grocery shopping , getting too and from the bathroom in an acceptable timeframe given current limitations. To prevent risk of fall patient can not use crutches safely as an alternative. As the patient is considered a fall risk, the utilization of a front-wheeled walker would mitigate the risk for height morbidity and mortality secondary to the possibility of fall. After further discussion at bedside the patient is able to safely use a walker in the benefit of walker use would improve her functional mobility to resolve deficit discussed above in her diagnosis. PLAN: This patient presents for preadmission testing for upcoming surgery. Complete history with medical,surgery, and current allergy and medication list obtained. Consent for surgery signed and witnessedafter verbal consent to perform surgery received. All questions answered and proposed surgery scheduled. SURGERY INSTRUCTIONS NEEDS WALKER - [facility] EXERCISES GIVEN Follow up in about 5 weeks (around 07/10/2025) for Post-Op July 10 @ 1:00 in [place] with Barry. documented in this encounter Plan of Treatment Upcoming Encounters Date Type Department Care Team (Late st Contact Info) Description 06/30/2025 10:10 AM EDT Office Visit [facility] [address] [place] [address] Feliz Benz, DO [address] [place] [address] 07/10/2025 1:00 PM EST Office Visit [facility] [place] [facility] [address] [place] [phone] Barry Martinez, ELECTRONIC IMAGING SYSTEM OPERATOR [address] [place], [place] [address] 08/19/2025 2:00 PM EST Office Visit [facility] [address] [place] [address] Feliz Benz, DO [address] [place] [address] Scheduled Orders Name Type Priority Associated Diagnoses Orde r Schedule Basic metabolic panel Lab Routine Pre-op examination Expected: 06/03/2025 (Approximate), Expires: 06/03/2026 documented as of this encounter Visit Diagnoses Diagnosis Pre-op examination- Primary documented in this encounter Care Teams Supervisor Multifocal Lens Relationship Specialty Start Date End Date Diaz Dalton MD PCP - General Family Medicine 09/25/23 documented as of this encounter
--- OUTSIDE RECORDS SUMMARY | 2025-06-05 08:03 | XMS_ITS | Encounter Summary ---
Author Organization [employer] Address [id number] [address] [place] [address] Care Team Providers Care Jockey Room Custodian Name Role Phone Diaz Dalton MD Primary Care Provider [phone] Encounter Details Date Type Department Care Team (Late st Contact Info) Description 09/09/2024 Telephone [facility] General Surgery [address] [place] [address] Gerri Doyle RMA Social History Tobacco Use Types Packs/Day Years Used Date Smoking Tobacco: Never Smokeless Tobacco: Never Alcohol Use Standard Drinks/Week Comments Not Currently 0 (1 standard drink = 0.6 oz pur e alcohol) [facility] Utilities Answer Date Recorded In the past [...] often do you attend chur ch or orthodoxy services? Never 12/20/2023 Do you belong to any clubs o r organizations such as confucianism groups, unions, fraternal or athletic groups, or [...] Answer Date Recorded Total Score 4 06/05/2023 [facility] of Occupat ional Health - Occupational Stress [...] Cardiology [address] [place] [address] Adriane Woods, HADOOP ARCHITECT-BOWL SANDER [address] [place] [address] Chasidy Lai PA-C [address] [place] [address] documented as of this encounter Goals Goal [...] documented as of this encounter Care Teams Jockey Room Custodian Relationship Specialty Start Date End Date Diaz Dalton MD PCP - General Family Medicine 10/27/24 documented as of this encounter
--- OUTSIDE RECORDS SUMMARY | 2025-06-05 08:03 | XMS_ITS | Encounter Summary ---
Author Organization [facility] Address [facility] [address] [place] [address] Care Team Providers Care Technical Testing Engineer Name Role Phone Diaz Dalton MD Primary Care Provider [phone] Reason for Visit * Reason Comments Med Refill Encounter Details Date Type Department Care Team ([facility] Contact Info) Description 02/26/2025 Refill [facility] Pulmonary/Sleep Medicine [address] [facility] [place] [phone] Cristina Arrieta, DO [address] [facility] [address] [place] [address] Social History Tobacco Use Types Packs/Day Years Used Date Smoking Tobacco: Never Smokeless Tobacco: Never Alcohol Use Standard Drinks/Week Comments Not Currently 0 (1 standard drink = 0.6 oz pur e alcohol) [facility] Utilities Answer Date Recorded In the past 12 months has [employer], gas, oil, or [employer] threatened to shut off services in your [...] often do you attend chur ch or mormon services? Never 12/20/2023 Do you belong to [...] Answer Date Recorded Total Score 4 06/05/2023 [facility] Occupational Stress Questionnaire Answer Date Recorded [...] Recorded Do you need help finding a [facility] career center and/or a training program? No [...] Cardiology [address] [place] [address] Adriane Woods, COAT IRONER HAND-TIRE AND TUBE REPAIRER [address] [place] [address] Chasidy Lai PA-C [address] [place], [place] [address] documented as of this encounter Goals Goal Patient Goal Type Associated Problems Recent Progress Patient-Stated? Author Home with self care General Yes Stacey Smith RN Note: Evaluation of progress towards goal: Patient plans to return home with self care. documented as of this encounter Visit Diagnoses Not on filedocumented in this encounter Additional Health Concerns Assessment Noted Time PHQ-9 Depression Total Score: 4 06/05/20 23 1:13 AM EDT documented as of this encounter Care Teams Technical Testing Engineer Relationship Specialty Start Date End Date Diaz Dalton MD PCP - General Family Medicine 10/27/24 documented as of this encounter
--- OUTSIDE RECORDS SUMMARY | 2025-06-05 08:04 | XMS_ITS | Encounter Summary ---
Author Organization [facility] Address [address] [place] [address] Care Team Providers Care Joinery Machinist Name Role Phone Diaz Dalton MD Primary Care Provider [phone] Encounter Details Date Type Department Care Team (Late Contact Info) Description 06/30/2024 Clinisync Result Encounter [facility] External Department Unsolicited Feliz Benz DO [address] [place] [address] Social History Tobacco Use Types Packs/Day Years [...] Upcoming Encounters Date Type Department Care Team ([facility] Contact Info) Description 06/30/2025 10:10 AM EDT Office Visit [facility] [address] [place] [address] Feliz Benz DO [address] [place] [address] 07/10/2025 1:00 PM EST Office Visit [facility] [address] [place] [address] Barry Martinez, WAREHOUSE SHIPPING CLERK [address] [place] [address] 08/19/2025 2:00 PM EST Office Visit [facility] [place] [facility] [address] [facility] [place] [address] Feliz Benz DO [address] [facility] [address] [place] [address] documented as of this encounter Procedures Procedure Name Priority Date/Time Associated Diagnosis Comments MM TOMOSYNTHESIS SCREENING BI 06/30/2024 7:52 PM EDT documented in this encounter Results * MM TOMOSYNTHESIS SCREENING BI (06/30/2024 7:52 PM EDT) Anatomical Region Laterality Modality Other 06/30/2024 7:52 PM EDT Narrative 06/30/2024 7:54 PM EDT The [address] [address] Mammography Report Signed Patient: CARISSA MILLER MR#: [id number] : 1980 Acct:[id number] Age/Sex: 43 / F ADM Date: 06/28/24 Loc: MAMMO Attending Dr: Feliz Benz D.O. Ordering Physician: Feliz Benz D.O. Results: Date of Service: 06/28/24 Follow Up: Procedure(s): MM tomosynthesis screening BI Accession Number(s): [id number] cc: Feliz Benz D.O.; Diaz Dalton M.D. Patient Name: CARISSA MILLER MR#: [id number] : 1980 Exam Date: 06/28/2024 Ordering Doctor: [...] Treatments None Family Cancers None LOCATION: [facility] BREAST COMPOSITION: There are scattered areas [...] M.D. Signed By: 06/30/241953 DD/ 51 TD/TT: Jewel Stripper: Procedure Note Radiology, Radiologist, MD - 06/30/2024 [place] [address] Mammography Report Signed Patient: CARISSA MILLER RMR#: [id number] : 1980Acct:[id number] Age/Sex: 43 / FADM Date: 06/28/24 Loc: MAMMO Attending Dr: Feliz Benz D.O. Ordering Physician: Feliz Benz D.O.Results: Date of Service: 06/28/24Follow Up: Procedure(s): MM tomosynthesis screening BI Accession Number(s): [id number] cc: Feliz Benz D.O.; Diaz Dalton M.D. Patient Name: CARISSA MILLER MR#: [id number] : 1980 Exam Date: 06/28/2024 Ordering Doctor: DR Feliz Benz . RADIOLOGY REPORT PROCEDURE: MM TOMOSYNTHESIS SCREENING BI COMPARISON: MM TOMOSYNTHESIS SCREENING BI, 06/26/2023. MG MAMM URAXLI9Y DINAH CAD, 06/22/2022. MG MAMM SCREEN 3D DINAH CAD, 06/21/2021. MG MAMM BILDIAG W CAD, 02/02/2016. INDICATIONS: Screening Calculator Name NCI Breast Cancer Risk Assessment Tool 5 Year Breast Cancer Risk 0.80% Lifetime Breast Cancer Risk 9.80% Personal Breast Cancer No Personal Ovarian Cancer No Treatments None Family Cancers None LOCATION: [facility] BREAST COMPOSITION: There are scattered areas [...] Gunn M.D. Signed By:06/30/241953 DD/ 51 TD/TT: Jewel Stripper: Feliz Demar DO [facility] Final Result documented in this encounter Visit Diagnoses Not on filedocumented in this encounter Care Teams Joinery Machinist Relationship Specialty Start Date End Date Diaz Dalton MD PCP - General Family Medicine 09/25/23 documented as of this encounter
--- OUTSIDE RECORDS SUMMARY | 2025-06-05 08:04 | XMS_ITS | Encounter Summary ---
Author Organization [facility] tem Address [id number] [address] [place] [address] Care Team Providers Care Pickling Operator Name Role Phone Diaz Dalton MD Primary Care Provider [phone] Encounter Details Date Type Department Care Team (Late st Contact Info) Description 11/10/2023 Orders Only [facility] Pulmonary/Sleep Medicine [address] [facility] [address] [place] [address] Racquel Christine LPN SOB (shortness [...] often do you attend chur ch or sabianist services? Never 06/05/2023 Do you belong to [...] Answer Date Recorded Total Score 4 06/05/2023 [facility] of Occupat ional Health - Occupational [...] Recorded Do you need help finding a [employer] of n career center and/or a training program? No [...] Office Visit [facility] Cardiology [address] [facility] [address] [place] [address] Adriane Woods, CARD MAKER-WEB CONTENT EXECUTIVE [address] [place] [phone] Chasidy Lai PA-C [address] [place], [place] [id number] documented as of this encounter Results * Protime & INR (11/17/2023 9:07 AM EDT) Protime 11.1 9.8 - 13.2 sec 11/17/2023 9:37 AM EDT [facility] Comment:NEW REFERENCE RANGE Inr 1.0 0.8 - 1.1 11/17/2023 9:37 AM EDT [facility] PLASMA 11/17/2023 9:07 AM EDT 11/17/2023 9:08 AM EDT us Libby Finley MD LAB BLOOD ORDERABLES Final Res ult [facility] [address] [facility], [place] [address] * APTT (11/17/2023 9:07 AM EDT) aPTT 33 26 - 37 sec 11/17/2023 9:37 AM EDT [facility] Comment:NEW REFERENCE RANGE PLASMA 11/17/2023 9:07 AM EDT 11/17/2023 9:08 AM EDT us Libby Finley MD LAB BLOOD ORDERABLES Final Res ult [place] [id number] [facility], [place] [address] * (ABNORMAL) Basic Metabolic Panel (11/17/2023 9:07 AM EDT) Sodium 140 134 - 146 mmol/L 11/17/2023 1:51 PM EDT [facility] Potassium, Bld 4.4 3.5 - 5.0 mmol/L 11/17/2023 1:51 PM EDT [facility] Chloride 99 98 - 109 mmol/L 11/17/2023 1:51 PM EDT [facility] CO2 31 22 - 32 mmol/L 11/17/2023 1:51 PM EDT [facility] Anion gap 10 5 - 15 mmol/L 11/17/2023 1:51 PM EDT [facility] BUN 23 5 - 23 mg/dL 11/17/2023 1:51 PM EDT [facility] Creatinine 0.83 0.40 - 1.00 mg/dL 11/17/2023 1:51 PM EDT [facility] Comment:METHOD TRACEABLE TO IDMS STANDARD Glucose 240(H) 65 - 99 mg/dL 11/17/2023 1:51 PM EDT [facility] Calcium 9.4 8.5 - 10.5 mg/dL 11/17/2023 1:51 PM EDT [facility] eGFR (CKD-EPI)non-ra ce dependent 89 >59 ml/min/1.7 3sq.m 11/17/2023 1:51 PM EDT [facility] Comment: Reported eGFR is based on the CKD-EPI 2020 equation that does not use a race coefficient. PLASMA 11/17/2023 9:07 AM EDT 11/17/2023 9:08 AM EDT us Libby Finley MD LAB BLOOD ORDERABLES Final Res ult [facility] [address] [facility] [place] [address] * CBC auto differential (11/17/2023 9:07 AM EDT) White Blood Cells 7.0 4.0 - 11.0 X10E9/L 11/17/2023 1:26 PM EDT [facility] RBC count 4.91 3.80 - 5.20 X10E12/L 11/17/2023 1:26 PM EDT [facility] Hemoglobin 14.2 11.7 - 15.5 g/dL 11/17/2023 1:26 PM EDT [facility] Hematocrit 42.9 35 - 47 % 11/17/2023 1:26 PM EDT [facility] MCV 87 80 - 100 fL 11/17/2023 1:26 PM EDT [facility] MCH 28.9 27 - 34 pg 11/17/2023 1:26 PM EDT [facility] MCHC 33.1 32 - 36 g/dL 11/17/2023 1:26 PM EDT [facility] RDW 13.5 11.5 - 15.0 % 11/17/2023 1:26 PM EDT [facility] Platelets 194 150 - 450 X10E9/L 11/17/2023 1:26 PM EDT [facility] MPV 7.7 7 - 12 fL 11/17/2023 1:26 PM EDT [facility] % neutrophils 56.3 % 11/17/2023 1:26 PM EDT [facility] % lymphocytes 36.3 % 11/17/2023 1:26 PM EDT [facility] % monocytes 5.3 % 11/17/2023 1:26 PM EDT [facility] % eosinophils 1.6 % 11/17/2023 1:26 PM EDT [facility] % Basophils 0.5 % 11/17/2023 1:26 PM EDT [facility] Neutrophils Absolute (A) 3.9 1.5 - 6.6 X10E9/L 11/17/2023 1:26 PM EDT [facility] Lymphocytes Absolute 2.5 1.0 - 3.5 X10E9/L 11/17/2023 1:26 PM EDT [facility] Monocytes Absolute 0.4 0 - 0.9 X10E9/L 11/17/2023 1:26 PM EDT [facility] Eosinophils Absolute 0.1 0.0 - 0.4 X10E9/L 11/17/2023 1:26 PM EDT [facility] Basophils Absolute 0.0 0.0 - 0.2 X10E9/L 11/17/2023 1:26 PM EDT [facility] Blood / Unknown 11/17/2023 9 :07 AM EDT 11/17/2023 9:08 AM EDT us Libby Finley MD LAB BLOOD ORDERABLES Final Res ult [employer] [facility] [address] [facility] [place] [address] documented in this encounter Visit Diagnoses Diagnosis SOB (shortness of breath)- Primary Shortness of breath documented in this encounter Additional Health Concerns Infection Onset Date Last Indicated Resolved Time COVID-19 Rule-Out 07/21/2024 07/21/2024 07/21/2024 6:08 PM EST Assessment Noted Time PHQ-9 Depression Total Score: 4 06/05/20 23 1:13 AM EDT documented as of this encounter Care Teams Pickling Operator Relationship Specialty Start Date End Date Diaz Dalton MD PCP - General Family Medicine 10/27/24 documented as of this encounter
--- OUTSIDE RECORDS SUMMARY | 2025-06-05 08:04 | XMS_ITS | Encounter Summary ---
Author Organization [employer] [facility] tem Address [id number] [address] [place] [address] Care Team Providers Care Parimutuel Ticket Seller Name Role Phone Diaz Dalton MD Primary Care Provider [phone] Reason for Referral * Misc (Routine) - Pending Review Specialty Diagnoses / Procedures Referred By Contac t Referred To Contact Diagnoses Hypoxia Chronic hypoxic respiratory failure ([facility]) SOB (shortness of breath) Procedures Oxygen Therapy Shania Lopez MD [address] [facility] [address] [place] [address] Phone: tel: fax: Referral ID Status Reason Start Date Expiration Date V isits Requested Visits Authorized [id number] Pending Review 05/09/2025 05/09/2026 1 1 Encounter Details Date Type Department Care Team (Late st Contact Info) Description 05/07/2025 Results [facility] [address] [address] Shania Lopez MD [address] [facility] [address] [place] [address] Home O2 evaluation Social History Tobacco Use Types Packs/Day Years Used Date Smoking Tobacco: Never Smokeless Tobacco: Never Alcohol Use Standard Drinks/Week Comments Not Currently 0 (1 standard drink = 0.6 oz pur e alcohol) [facility] Utilities Answer Date Recorded In [...] often do you attend chur ch or islam services? Never 12/20/2023 Do you belong to any clubs o r organizations such as adventism groups, unions, fraternal or athletic groups, or [...] Answer Date Recorded Total Score 4 06/05/2023 [facility] of Occupat ional Health - Occupational [...] Recorded Do you need help finding a [facility] career center and/or a training [...] as of this encounter Progress Notes * Shania Lopez MD - 05/07/2025 4:35 PM EDT Unclear if this was completed on 3 L nasal cannula with PAP therapy but patient is supposed to be wearing her PAP therapy at night. She qualifies for 3 L supplemental oxygen with exertion. No oxygen required at rest. Should be using her 3 L oxygen with her PAP therapy at nighttime. documented in this encounter Miscellaneous Notes * Telephone Encounter - MOIZ Andrew - 05/07/2025 4:35 PM EDT ----- Message from GEORGINA Douglas sent at 05/08/2025 10:09 AM EDT ----- Silvia - can you please complete Thanks, Ale ----- Message ----- From: Shania Lopez MD Sent: 05/07/2025 4:36 PM EDT To: Cristina Arrieta DO; Stella Reyes RN Unclear if this was completed on 3 L nasal cannula with PAP therapy but patient is supposed to be wearing her PAP therapy at night. She qualifies for 3 L supplemental oxygen with exertion. No oxygen required at rest. Should be using her 3 L oxygen with her PAP therapy at nighttime. ----- Message ----- From: Arlene Gilman RCP Sent: 05/07/2025 3:51 PM EDT To: Cristina Arrieta DO * Telephone Encounter - MOIZ Andrew - 05/07/2025 4:35 PM EDT Brick Shader called patient and asked if patient used her PAP therapy during her Home O2 Evaluation, patient stated that she did not as she does not have a table next to her bed to set it on. * Telephone Encounter - MOIZ Andrew - 05/07/2025 4:35 PM EDT Brick Shader called [facility] and spoke with Autumn to confirm that the updated oxygen order needs to include the bleed-in adapter in the equipment, Autumn confirmed that the bleed-in adapter does need audrey included on the order. Autumn had asked if patient had an office visit within the last 30 days prior to her testing, va underwriter stated that patient had not been seen since 03/13/2025, Autumn stated thatthe testing would not be good and that patient needs to be seen prior to testing for insurance to accept. Brick Shader called [facility] and spoke with Robe, per Robe, they will take the order with the updated testing as long as patient was seen within the last 12 months. Robe did state that patient has used them in the past and does owe them $399 however they can set up a payment plan with patient if she chooses to switch. Brick Shader spoke with SK via phone and explained the information above to see if she could see patient on 05/14/2025 when she is back in the [place] location. Per SK, she is willing to see patient to provide updated office note to support patient's recent home O2 evaluation. Brick Shader called alexandrea (Grain Buyer) with [facility] asking her to look into this and to confirm if patient needs an appointment or if her office notes from 03/13/2025 are sufficient, Alexandrea stated that she would get back with our office as soon as possible to help resolve this issue. Brick Shader called patient and in formed her of all the information above, patient understands what her options are, patient stated that she is unsure if she can get a ride to the appointment on Monday but stated that she would call us back once knows, va underwriter verbalized understanding and held spot for patient on 05/14/2025 at noon. * Telephone Encounter - MOIZ Andrew - 05/07/2025 4:35 PM EDT Updated oxygen therapy order, home oxygen evaluation results, and office note faxed directly to [facility]'s Cylinder Loader Valeriy and Grain Buyer Alexandrea via email. documented in this encounter Plan of Treatment Upcoming Encounters Date Type Department Care Team (Late st Contact Info) Description 07/07/2025 9:30 AM EST Office Visit [facility] [address] [place] [phone] Adriane Woods, TALENT DEVELOPMENT CONSULTANT-COOK RELIEF [address] [place] [address] Chasidy Lai PA-C [address] [place] [address] documented as of this encounter Goals Goal Patient Goal Type Associated Problems Recent Progress Patient-Stated? Author Home with self care General Yes Stacey Smith, RN Note: Evaluation of progress towards goal: Patient plans to return home with self care. documented as of this encounter Visit Diagnoses Diagnosis Chronic hypoxic respiratory failure (CMS-HCC)- Primary Hypoxia Hypoxemia SOB (shortness of breath) Shortness of breath documented in this encounter Additional Health Concerns Assessment Noted Time PHQ-9 Depression Total Score: 4 06/05/20 23 1:13 AM EDT documented as of this encounter Care Teams Parimutuel Ticket Seller Relationship Specialty Start Date End Date Diaz Dalton MD PCP - General Family Medicine 10/27/24 documented as of this encounter
--- OUTSIDE RECORDS SUMMARY | 2025-06-05 08:04 | XMS_ITS | Encounter Summary ---
Author Organization [facility] Address [address] [place] [address] Care Team Providers Care Laborer Marine [employer] Name Role Phone Diaz Dalton MD Primary Care Provider [phone] Encounter Details Date Type Department Care Team (Latest Contact Info) Description 06/03/2025 Travel Social History Tobacco Use Types Packs/Day [...] 06/30/2025 10:10 AM EDT Office Visit [facility] [address] [place] [phone] Feliz Benz DO [address] [place] [address] 07/10/2025 1:00 PM EST Office Visit [facility] [address] [place] [address] Barry Martinez, HADOOP INFRASTRUCTURE ARCHITECT [address] [place] [address] 08/19/2025 2:00 PM EST Office Visit [facility] [address] [place] [address] Feliz Benz DO [address] [place] [place] [address] documented as of this encounter Visit Diagnoses Not on filedocumented in this encounter Care Teams Laborer Marine Terminal Relationship Specialty Start Date End Date Diaz Dalton MD PCP - General Family Medicine 09/25/23 documented as of this encounter
--- OUTSIDE RECORDS SUMMARY | 2025-06-05 08:04 | XMS_ITS | Encounter Summary ---
Author Organization [facility] Address [id number] [address] [place] [address] Care Team Providers Care Noodle Maker Name Role Phone Diaz Dalton MD Primary Care Provider [phone] Encounter Details Date Type Department Care Team ([facility] Contact Info) Description 11/09/2023 Telephone [facility] Pulmonary/Sleep Medicine [address] [facility] [address] [place] [address] Libby Finley MD [address] [facility] [place] [address] Social History Tobacco Use Types [...] often do you attend chur ch or synagogue services? Never 06/05/2023 Do you belong to any clubs o r organizations such as mandaen groups, unions, fraternal or athletic groups, or [...] Answer Date Recorded Total Score 4 06/05/2023 [facility] of Occupat ional Health - Occupational Stress [...] Cardiology [address] [place] [address] Adriane Woods, PROJECTION TECHNICIAN-PEDIATRIC RADIOLOGIST [address] [place] [phone] Chasidy Lai PA-C [address] [place] [address] documented as of this encounter Visit Diagnoses Not on filedocumented in this encounter Additional Health Concerns Infection Onset Date Last Indicated Resolved Time COVID-19 Rule-Out 07/21/2024 07/21/2024 07/21/2024 6:08 PM EST Assessment Noted Time PHQ-9 Depression Total Score: 4 06/05/20 23 1:13 AM EDT documented as of this encounter Care Teams Noodle Maker Relationship Specialty Start Date End Date Diaz Dalton MD PCP - General Family Medicine 10/27/24 documented as of this encounter
--- OUTSIDE RECORDS SUMMARY | 2025-06-05 08:04 | XMS_ITS | Clinical Summary ---
Author Organization [facility] Address [address] [place] [address] Care Team Providers Care Trip Follower Name Role Phone Diaz Dalton MD Primary Care Provider [phone] Allergies Active Allergy Reactions Criticality Noted Date Comments Sulfamethoxazole-Trimethoprim Hives,Itching 06/2012 Medications acyclovir (Zovirax) 400 MG tablet every 12 (twelve) hours Active traZODone (Desyrel) 150 MG tablet 1 (one) time each day at the same time Active oxybutynin XL (Ditropan-XL) 15 MG 24 hr tablet Take 15 mg by mouth Daily 06/19/20 23 Active prazosin (Minipress) 2 MG capsule 06/19/20 23 Active metoprolol tartrate (Lopressor) 50 MG tablet 07/31/20 23 Active lanolin (Lansinoh) creamIndications:N ipple pain Apply topically if needed for dry skin 7 g 09/27/19 24 Active Black Cohosh (Black Cohosh Hot Flash Relief) 40 MG capsuleIndications :Hot flashes due to menopause Take 1 each by mouth Daily 30 capsule 11 11/02/19 24 Active Trelegy Ellipta 200-62.5-25 MCG/ACT aerosol powder Inhale 1 puff in the morning. 03/21/20 24 Active fluconazole (Diflucan) 150 MG tablet Take 150 mg by mouth 1 (one) time 03/25/20 24 Active pantoprazole (ProtoNix) 40 MG EC tabletIndications: Gastroesophageal reflux disease without esophagitis Take 1 tablet by mouth once daily 30 tablet 5 08/06/20 24 Active cyclobenzaprine (Flexeril) 10 MG tabletIndications: Spondylosis without myelopathy TAKE 1 TABLET BY MOUTH THREE TIMES DAILY NEEDED FOR MUSCLE SPASMS 60 tablet 10 08/14/20 24 Active lamoTRIgine (LaMICtal) 200 MG tabletIndications: Mild episode of recurrent major depressive disorder Take 1 tablet (200 mg) by mouth at bedtime 90 tablet 3 08/22/20 24 Active dicyclomine (Bentyl) 20 MG tabletIndications: Irritable bowel syndrome with diarrhea TAKE 1 TABLET BY MOUTH FOUR TIMES DAILY NEEDED 60 tablet 10 10/15/19 25 Active ondansetron ODT (Zofran-ODT) 4 MG disintegrating tabletIndications: Nausea PLACE 1 TABLET ON TONGUE AND ALLOW TO DISSOLVE EVERY 6 HOURS NEEDED FOR NAUSEA OR VOMITING 30 tablet 10 10/15/19 25 Active Continuous Glucose Sensor (FreeStyle Crystal 3 Sensor) miscIndications:Ty pe 2 diabetes mellitus with hyperglycemia, with long-term current use of insulin ([facility]) USE TO MONITOR BLOOD SUGAR DIRECTED. CHANGE SENSOR EVERY 14 DAYS. 2 each 10 11/05/19 25 Active Continuous Glucose Automotive Quality Engineer (FreeStyle Crystal 3 [place]) deviceIndications: Type 2 diabetes mellitus with hyperglycemia, with long-term current use of insulin ([facility]) 1 Application continuously 1 each 11/08/19 25 Active buPROPion XL (Wellbutrin XL) 300 MG 24 hr tabletIndications: Panic disorder without agoraphobia TAKE 1 TABLET BY MOUTH ONCE DAILY 30 tablet 10 11/14/19 25 Active insulin aspart FlexPen (NovoLOG) 100 UNIT/ML penIndications:Typ e 2 diabetes mellitus with hyperglycemia, with long-term current use of insulin ([facility]) INJECT SUBCUTANEOUSLY THREE TIMES A DAY PER SLIDING SCALE; *30 TO 40 UNITS DAILY* 15 mL 5 12/27/19 25 Active nabumetone (Relafen) 500 MG tabletIndications: Carpal tunnel syndrome of left wrist Take 1 tablet (500 mg) by mouth 2 (two) times a day as needed for moderate pain 60 tablet 2 12/31/19 25 Active insulin pen needle (Droplet Pen Flasher) 32G x 4 mm miscIndications:Ty pe 2 diabetes mellitus with microalbuminuria, with long-term current use of insulin ([facility]) Use as instructed 200 each 10 01/09/20 25 Active lisinopril 2.5 MG tabletIndications: Chronic heart failure with preserved ejection fraction (HFpEF) (HCC) TAKE 1 TABLET BY MOUTH DAILY 30 tablet 11 01/11/20 25 Active atorvastatin (Lipitor) 40 MG tabletIndications: Dyslipidemia Take 1 tablet (40 mg) by mouth Daily 30 tablet 01/11/20 25 026 Active cholecalciferol (Vitamin D-3) 50 MCG (1999 UT) tabletIndications: Vitamin D deficiency TAKE 2 TABLETS BY MOUTH DAILY 60 tablet 11 02/04/20 25 Active SUMAtriptan (Imitrex) 25 MG tabletIndications: Migraine without aura and without status migrainosus, not intractable TAKE 1 TABLET BY MOUTH NEEDED 9 tablet 11 02/05/20 25 Active insulin glargine (Semglee) 100 UNIT/ML penIndications:Typ e 2 diabetes mellitus with hyperglycemia, with long-term current use of insulin ([facility]) Inject 20 Units under the skin in the morning and 20 Units before bedtime. 15 mL 3 02/11/20 25 Active LORazepam (Ativan) 1 MG tabletIndications: JOHN (generalized anxiety disorder) Take 1 tablet (1 mg) by mouth 3 (three) times a day as needed for anxiety 90 tablet 02/11/20 25 Active citalopram (CeleXA) 40 MG tabletIndications: Mild episode of recurrent major depressive disorder Take 1 tablet (40 mg) by mouth Daily 30 tablet 5 02/11/20 25 Active albuterol HFA 90 mcg/act inhalerIndications :SOB (shortness of breath) INHALE 2 PUFFS BY MOUTH EVERY 4 HOURS NEEDED FOR WHEEZING 8.5 g 11 02/26/20 25 Active Blood Glucose Monitoring Suppl (True Metrix Meter) w/Device kitIndications:Typ e 2 diabetes mellitus with hyperglycemia, with long-term current use of insulin ([facility]) Test daily 1 kit 02/26/20 25 Active ofloxacin (Ocuflox) 0.3 % ophthalmic solution INSTILL 1 DROP INTO AFFECTED EYE X4/DAY DIRECTED START 3DAYS PRIOR TO SX,THEN IMMEDIATELY FOLLOWING SX EVERY HOUR W/A,THEN X4/DAY NEXT DAY TIL APPT *04/14* 03/06/20 25 Active pioglitazone (Actos) 45 MG tablet 02/25/20 25 Active prednisoLONE acetate (Pred-Forte) 1 % ophthalmic suspension INSTILL 1 DROP IN AFFECTED EYE EVERY HOUR WHILE AWAKE AFTER SURGERY THEN NEXT DAY 4 TIMES DAILY UNTIL APPOINTMENT *EFFECTIVE 04/14* 03/06/20 25 Active furosemide (Lasix) 40 MG tabletIndications: Chronic heart failure with preserved ejection fraction (HFpEF) ([facility]) Take 1 tablet (40 mg) by mouth Daily 30 tablet 5 04/09/20 25 Active empagliflozin (Jardiance) 25 MGIndications:Type 2 diabetes mellitus with hyperglycemia, with long-term current use of insulin ([facility]) Take 1 tablet (25 mg) by mouth Daily 30 tablet 5 04/09/20 25 Active ibuprofen 800 MG tabletIndications: Pelvic pain in female TAKE 1 TABLET BY MOUTH EVERY 6 HOURS IF NEEDED FOR MILD PAIN FOR UP TO 30 DOSES 30 tablet 3 04/28/20 25 Active Dulaglutide (Trulicity) 1.5 MG/0.5ML solution auto-injectorIndic ations:Type 2 diabetes mellitus with hyperglycemia, with long-term current use of insulin ([facility]) Inject 1.5 mg under the skin 1 (one) time per week 2 mL 2 04/24/20 25 Active ondansetron (Zofran) 4 MG tabletIndications: Nausea TAKE 1 TABLET BY MOUTH EVERY 6 HOURS NEEDED FOR NAUSEA OR VOMITING 30 tablet 3 04/28/20 25 Active Continuous Glucose Sensor (FreeStyle Crystal 3 Sensor) miscIndications:Ty pe 2 diabetes mellitus with hyperglycemia, with long-term current use of insulin ([facility]) USE TO MONITOR BLOOD SUGAR DIRECTED. CHANGE SENSOR EVERY 14 DAYS. 1 each 05/04/20 25 Active Misc. Devices miscIndications:Pr e-op examination Dispense: Front Wheeled walker use 90 days. Ht: 5'1 Weight: 206 1 Units 06/03/20 25 Active Active Problems Problem Noted Date Diagnosed [...] for surgery. Cavitary lesion of lung 08/10/2023 09/0 05/2024 Assessment & Plan (08/10/2023 2:57 PM EST): [...] clearance from pulmonology. Other chronic pain 04/06/2023 Missed period 04/06/2023 08/10/2023 Cubital tunnel syndrome on left 11/04/2022 08/10/2023 Overview (04/06/2023): Added automatically from request for surgery [id number] Acute kidney injury (DREW) wi th acute tubular necrosis (ATN) 09/30/2021 08/10/2023 High anion gap metabolic acidosis 09/30/2021 08/10/2023 Pneumonia due to infectious organism 09/29/2021 08/10/2023 DKA, type 1, not at goal 09/27/202103/2023 Shoulder joint pain 04/06/2021 08/10/20 23 Hyperglycemia 03/01/2019 08/10/2023 Fecal incontinence 06/22/2016 Poorly controlled diabetes mellitus 08/10/2015 08/10/2023 Normal gynecologic examination 06/09/2015 08/10/2023 Convulsions in the 09/30/2009 1 10/11/2022 Mild intellectual disability 09/30/2009 08/10/2023 Type 2 diabetes mellitus 09/30/200903/2023 Encounters Date Type Department Care Team Description 06/04/2025 Telephone [facility] [address] [place] [address] Jr. Harinder Jackson, DO About her prescription for 2 wheel walker 06/03/2025 1:30 PM EDT Office Visit [facility] [address] [facility] [place] [address] Cholo Strong PA Pre-op examination (Primary Dx) 06/03/2025 Orders Only [facility] [place] [address] Renetta Simons MA Pre-op examination (Primary Dx) 06/03/2025 Bamboo flowsheet [facility] [address] [place] [address] Cholo Strong PA 06/03/2025 Travel 05/29/2025 Telephone [facility] [address] [place] [address] Jr. Harinder Jackson, DO ? surgery 05/26/2025 1:20 PM EDT Consult [facility] [address] [place] [address] [place] [address] Feliz Benz DO Pre-op examination; Pelvic pain; Genital warts; Pain of ovary 05/02/2025 Refill [facility] [address] [place] [phone] Diaz Dalton MD Type 2 diabetes mellitus with hyperglycemia, with long-term current use of insulin (HCC) 04/25/2025 Refill [facility] [address] [place] [address] Romana Poole, [place] Nausea 04/24/2025 Results Follow-Up [facility] [place] [facility] [address] [place] [phone] Diaz Dalton MD ALL CBC WITH AUTO DIFF, MLR HEMOGLOBIN A1C, HMHP LIVER PANEL, Additional followed-up results: 4 04/24/2025 Clinisync Result Encounter NOM[facility] External Department Unsolicited Provider, Generic External Data 04/24/2025 Clinisync Result Encounter NOMS External Department Unsolicited Diaz Dalton MD 04/23/2025 Telephone [facility] [address] [place] [phone] Jr. Harinder Jackson, DO Medial aspect of her eye and nose 04/22/2025 10:00 AM EDT Office Visit [facility] [address] [place] [phone] Jr. Harinder Jackson, DO Acute pain of left knee (Primary Dx); Acute medial meniscus tear of left knee, initial encounter 04/22/2025 Telephone [facility] [address] [place] [phone] Renetta Simons MA Cad Intern ( ) 04/22/2025 Bamboo flowsheet [facility] [address] [place] [phone] Jr. Harinder Jackson, DO 04/22/2025 Travel 04/20/2025 Refill [facility] [address] [facility] [place] [address] Feliz Benz, DO Pelvic pain in female 04/14/2025 1:40 PM EDT Office Visit [facility] [address] [facility] [place] [address] Feliz Benz, DO Pelvic pain in female (Primary Dx); Nausea; Genital warts 04/14/2025 Bamboo flowsheet [facility] [address] [place] [address] [place] [address] Feliz Benz DO 04/10/2025 2:30 PM EDT Treatment [facility] [address] [place] [address] Puma Kelly PTA Acute pain of left knee (Primary Dx) 04/10/2025 Bamboo flowsheet [facility] [address] [place] [address] Puma Kelly, HEDIS COORDINATOR 04/10/2025 Travel 04/09/2025 Refill [facility] [place] [facility] [address] [place] [address] Diaz Dalton MD Type 2 diabetes mellitus with hyperglycemia, with long-term current use of insulin (HCC) (Primary Dx); Chronic heart failure with preserved ejection fraction (HFpEF) ([facility]) 04/09/2025 Telephone [facility] [place] [facility] [address] [place] [address] Diaz Dalton MD 04/07/2025 Telephone [facility] [address] [place] [address] Ubaldo Herzog, VANDANA Cx PT 04/07/25 04/02/2025 11:00 AM EDT Treatment [facility] [address] [place] [address] Puma Kelly PTA Acute pain of left knee (Primary Dx) 04/02/2025 Bamboo flowsheet [facility] [address] [place] [address] Puma Kelly, HEDIS COORDINATOR 04/02/2025 Travel 04/01/2025 Refill [facility] [place] [facility] [address] [place] [address] Diaz Dalton MD Type 2 diabetes mellitus with hyperglycemia, with long-term current use of insulin ([facility]) 03/28/2025 Telephone [facility] [address] [place] [address] Ubaldo Herzog, HEDIS COORDINATOR re: PT so far 03/27/2025 Telephone [facility] [address] [place] [phone] Cholo Strong, ROSAURA called and said that therapy is making her pain worse 03/26/2025 1:30 PM EDT Treatment [facility] [address] [place] [address] Ubaldo Herzog, HEDIS COORDINATOR Acute pain of left knee (Primary Dx) 03/26/2025 Bamboo flowsheet [facility] [address] [place] [address] Ubaldo Herzog, HEDIS COORDINATOR 03/26/2025 Travel 03/25/2025 Orders Only [facility] [place] [facility] [address] [place] [address] Lotus Diego MD 03/21/2025 8:30 AM EDT Evaluation [facility] [address] [place] [address] Shakila Lee, PT Acute pain of left knee (Primary Dx) 03/21/2025 Plan of Care Documentation [facility] [address] [place] [address] 03/21/2025 Bamboo flowsheet [facility] [address] [place] [address] Shakila Lee, PT 03/21/2025 Travel 03/17/2025 2:30 PM EDT Procedure Visit [facility] [address] [place] [address] [place] [address] Yamel BenzyDO Genital warts 03/14/2025 11:30 AM EDT Office Visit [facility] [address] [place] [address] Jr. Harinder Jackson, Acute medial meniscus tear of left knee, initial encounter (Primary Dx); Acute pain of left knee 03/14/2025 Bamboo flowsheet [facility] [address] [facility] [address] [address] [place] [phone] Jr. Harinder Jackson DO 03/14/2025 Travel 03/12/2025 Refill [facility] [address] [facility] [place] [phone] Diaz Dalton MD Type 2 diabetes mellitus with hyperglycemia, with long-term current use of insulin (HCC) 03/05/2025 Telephone [facility] [address] [place] [address] Diaz Dalton MD 03/05/2025 Results Follow-Up [facility] [address] [facility] [place] [address] Cholo Strong PA MR KNEE LT WO CON from Last 3 Months Immunizations Immunization Administration [...] Pressure 130/82 05/26/2025 1:26 PM EDT Pulse 85 02/10/2025 1:23 PM EDT Temperature 36.3 C (97.3 F) 02/10/2025 1:23 PM EDT Respiratory Rate 20 02/10/2025 1:23 PM EDT Oxygen Saturation 98% 02/10/2025 1:23 PM EDT Inhaled Oxygen Concentration - - Weight 93.4 kg (206 lb) 06/03/2025 1:24 PM EDT Height 154.9 cm (5' 1 ) 06/03/2025 1:24 PM EDT Body Mass Index 38.92 06/03/2025 1:24 PM EDT Plan of Treatment Upcoming Encounters Date Type Department Care Team (Late st Contact Info) Description 06/30/2025 10:10 AM EDT Office Visit [facility] [address] [place] [address] [place] [address] Feliz Benz, [address] [place], [place] [phone] 07/10/2025 1:00 PM EST Office Visit [facility] [address] [place] [address] Barry Martinez, PAGINATOR [address] [place] [address] 08/19/2025 2:00 PM EST Office Visit [facility] [address] [place] [address] [place] [address] Feliz Benz, DO [address] [place] [address] [place] [address] Health Maintenance Due Date Last Done Comments CT Colonography 1979 FIT-DNA 1979 FIT 1979 FOBT 1980 Sigmoidoscopy 1980 Influenza Vaccine (#1) 2025 , 05/20/2019, 04/22/2017, Additional history exists Mammogram 06/30/2025 06/30/2024, 06/30/2023, 06/04 Cervical Cancer Screening 07/14/2027 HPV/Cotest 07/14/2027 Pap Smear 08/06/2027 08/06/2024, 08/01/2023, 07/05 Colonoscopy 09/12/2034 09/12/2024, 05/2025, 09/12/2024, Additional history exists Colorectal Cancer Screening 09/12/2034 Procedures Procedure Name Priority Date/Time Associated Diagnosis Comments US PELVIS W/ TRANSVAGINAL 04/24/2025 4:10 PM EDT TBH MICROALB CREAT RATIO RANDOM Routine 04/24/2025 3:08 PM EDT ALL THYROID STIM HORMONE Routine 04/24/2025 1:17 PM EDT ALL LIPID PROFILE (FASTING) Routine 04/24/2025 1:17 PM EDT ALL BASIC METABOLIC PANEL Routine 04/24/2025 1:17 PM EDT HMHP LIVER PANEL Routine 04/24/2025 1:17 PM EDT MLR HEMOGLOBIN A1C Routine 04/24/2025 1: 17 PM EDT ALL CBC WITH AUTO DIFF Routine 1:17 PM EDT DIABETIC RETINOPATHY SCREENING - OU - BOTH EYES Routine 03/25/2025 1:21 PM EDT COLONOSCOPY Routine 09/12/2024 11:13 AM EST PAP SMEAR Routine 08/06/2024 12:00 AM EST MM TOMOSYNTHESIS SCREENING BI 06/30/2024 7:52 PM EDT from Last 3 Months or Most Recently Relevant to Health Maintenance Results * US PELVIS W/ TRANSVAGINAL (04/24/2025 4:10 PM EDT) Anatomical Region Laterality Modality Other 04/24/2025 4:10 PM EDT Narrative 04/24/2025 4:19 [place] [address] Ultrasound Report Signed Patient: CARISSA LOZADA MR#: [id number] : 1980 Acct:[id number] Age/Sex: 44 / F ADM Date: 04/24/25 Loc: US Attending Dr: Romana Poole Ordering Physician: Romana Poole Date of Service: 04/24/25 Procedure(s): US pelvis w/ transvaginal Accession Number(s): [id number] cc: Romana Poole; Diaz Dalton M.D. [facility] [place] [address] Patient Name: CARISSA LOZADA MRN: [id number] date: 1980 Sex: F Assigned Patient Location: Current Patient Location: [facility] Accession/Order Number: [id number] Exam Date: 04/24/2025 13:27 Report Date: 04/24/2025 16:10 At the request of: ROMANA POOLE Procedure: US pelvis w/ transvaginal Pelvic ultrasound HISTORY: Right-sided pelvic pain. Uterus is anteverted. Uterus measures 4.6 x 1.9 x 2.6 cm. The endometrium has a total combined thickness of 3 mm. The ovaries not visualized. No adnexal mass. No free fluid. US/US pelvis w/ transvaginal IMPRESSION: Limited examination. Nonvisualization of the ovaries. Unremarkable anteverted uterus and endometrial complex. No adnexal mass or free fluid Impression dictated by: Gallito Torres M.D. 04/24/2025 4:10 PM Dictation Location: [facility] Electronically authenticated by: [id number] Y Date: 04/24/2025 16:10 Dictated By: Gallito Torres D.O. Signed By: 04/24/25 1619 DD/ 09 TD/TT: Pan Shover: Procedure Note Radiology, Radiologist, MD - 04/24/2025 [place] [address] Ultrasound Report Signed Patient: CARISSA LOZADA RMR#: [id number] : 1980Acct:[id number] Age/Sex: 44 / FADM Date: 04/24/25 Loc: US Attending Dr: Romana Poole Ordering Physician: Romana Poole Date of Service: 04/24/25 Procedure(s): US pelvis w/ transvaginal Accession Number(s): [id number] cc: Romana Poole; Diaz Dalton M.D. [facility] [place] [id number] Patient Name: CARISSA LOZADA MRN: [id number] date: 1980 Sex: F Assigned Patient [facility]: [facility] Accession/Order Number: [id number] Exam Date: 04/24/2025 13:27 Report Date: 04/24/2025 16:10 At the request of: ROMANA POOLE Procedure: US pelvis w/ transvaginal Pelvic ultrasound HISTORY: Right-sided pelvic pain. Uterus is anteverted. Uterus measures 4.6 x 1.9 x 2.6 cm. Theendometrium has a total combined thickness of 3 mm. The ovaries not visualized. No adnexal mass. No free fluid. US/US pelvis w/ transvaginal IMPRESSION: Limited examination. Nonvisualization of the ovaries. Unremarkable anteverted uterus and endometrial complex. No adnexal massor free fluid Impression dictated by: Gallito Torres M.D. 04/24/2025 4:10 PM Dictation Location: [facility] Electronically authenticated by: [id number] Y Date: 6:10 Dictated By: Gallito Torres D.O. Signed By:04/24/251618 DD/ 09 TD/TT: Pan Shover: Generic External Data Provider [facility] Final Result * (ABNORMAL) TBH MICROALB CREAT RATIO RANDOM (04/24/2025 3:08 PM EDT) MICROALBUMIN URINE RANDOM 3.5 <=30.0 mg/dL TBH CREATININE URINE RANDOM 42.62 20.00 - 300.00 mg/dL TB MICROALBUM CREATININE RATIO UR 82.1(H) 0.0 - 29.9 mg/g TBH Comment: NO MICROALBUMINURIA 0-29 MG/G CLINICAL MICROALBUMINURIA 30-300 MG/G MACROALBUMINURIA >300 MG/G 04/24/2025 3:08 PM EDT 04/24/2025 3:31 PM EDT Narrative [facility] - 04/24/2025 3:45 PM EDT Diaz Dalton MD [facility] Final Result [facility] * (ABNORMAL) MLR HEMOGLOBIN A1C (04/24/2025 1:17 PM EDT) GLYCOHEMOGLOBIN A1C 11.6(H) 4.5 - 6.2 % TB Comment: ADA RECOMMENDED LIMIT 4.0 - 6.0 ADA THERAPEUTIC TARGET < 7.0 ACTION SUGGESTED > 7.0 ESTIMATED AVERAGE GLUCOSE 286 mg/dL TB 04/24/2025 1:17 PM EDT 04/24/2025 1:19 PM EDT Narrative [facility] - 04/24/2025 2:42 PM EDT Diaz Dalton MD [facility] Final Result [facility] TB * (ABNORMAL) HP LIVER PANEL (04/24/2025 1:17 PM EDT) BILIRUBIN TOTAL 0.4 0.2 - 1.0 mg/dL TB BILIRUBIN DIRECT 0.1 0.0 - 0.2 mg/dL TB ASPARTATE AMINO TRANSFERASE 11(L) 15 - 37 U/L TBH ALANINE AMINOTRANSFERASE 33 14 - 59 U/L TBH ALKALINE PHOSPHATASE 105 46 - 116 U/L TB TOTAL PROTEIN 7.3 6.4 - 8.2 g/dL TBH ALBUMIN LEVEL 3.4 3.4 - 5.0 g/dL TBH GLOBULIN 3.9 g/dL TBH ALBUMIN GLOBULIN RATIO 0.9 TBH 04/24/2025 1:17 PM EDT 04/24/2025 1:19 PM EDT Narrative [facility] - 04/24/2025 2:48 PM EDT Diza TATE Final Result Performing Organization Address [facility]/ZIP Co de Phone Number [facility] * ALL THYROID STIM HORMONE (04/24/2025 1:17 PM EDT) THYROID STIMULATING HORMONE 1.133 0.358 - 3.740 uIU/mL TB 04/24/2025 1:17 PM EDT 04/24/2025 1:19 PM EDT Narrative [facility] - 04/24/2025 2:48 PM EDT Diaz TATE Final Result Performing Organization Address City/[facility]/ZIP Co de Phone Number [facility] * (ABNORMAL) ALL LIPID PROFILE (FASTING) (04/24/2025 1:17 PM EDT) TRIGLYCERIDES 201(H) <=150 mg/dL TBH CHOLESTEROL 181 <=200 mg/dL TB HDL CHOLESTEROL 62(H) 40 - 60 mg/dL TB Comment: > or =60 mg/dl - LOW CARDIOVASCULAR RISK <40 mg/dl - HIGH CARDIOVASCULAR RISK LDL CHOLESTEROL CALCULATED 79.0 mg/dL TB Comment: <100 mg/dl OPTIMAL 100-129 mg/dl NEAR OR ABOVE OPTIMAL 130-159 mg/dl BORDERLINE HIGH 160-189 mg/dl HIGH >190 mg/dl VERY HIGH VLDL CHOLESTEROL 40.2 mg/dL TB CHOL HDL RATIO 2.9 TB Comment: 3.3 - 4.4 LOW RISK 4.4 - 7.1 AVERAGE RISK 7.1 - 11.0 MODERATE RISK >11.0 HIGH RISK 04/24/2025 1:17 PM EDT 04/24/2025 1:19 PM EDT Narrative [facility] - 04/24/2025 2:48 PM EDT us Diaz Dalton MD [facility] Final Result [facility] * (ABNORMAL) ALL CBC WITH AUTO DIFF (04/24/2025 1:17 PM EDT) TB WBC 7.4 4.0 - 11.0 10 3/uL TBH TBH RBC 4.59 4.20 - 5.40 10 6/uL TBH TB HGB 13.2 12.0 - 16.0 g/dL TB TB HCT 41.8 36.0 - 48.0 % TBH TB MCV 91.1 81.0 - 99.0 fL TB TB MCH 28.8 26.7 - 34.0 pg TBH TB MCHC 31.6 29.9 - 35.2 g/dL TB TB RDW 12.7 11.0 - 15.0 % TBH TBH PLT 168 150 - 450 10 3/uL TBH TBH MPV 9.3(L) 9.5 - 13.5 fL TBH NEUTROPHILS PERCENT AUTO 59.5 43.0 - 75.0 % TBH LYMPHOCYTES PERCENT AUTO 33.5 20.5 - 60.0 % TBH MONOCYTES PERCENT AUTO 5.4 1.7 - 12.0 % TBH TBH EO % 1.2 0.9 - 7.0 % TBH BASOPHILS PERCENT AUTO 0.3 0.2 - 2.0 % TBH IMMATURE GRANULOCYTES PCT AUTO 0.1 0.0 - 0.5 % TBH NEUTROPHILS ABSOLUTE AUTO 4.4 1.4 - 6.5 10 3/uL [facility] LYMPHOCYTES ABSOLUTE AUTO 2.5 1.2 - 3.8 10 3/uL [facility] MONOCYTES ABSOLUTE AUTO 0.4 0.3 - 0.8 10 3/uL [facility]H EO # 0.1 0.0 - 0.7 10 3/uL [facility] BASOPHILS ABSOLUTE AUTO 0.0 0.0 - 0.1 10 3/uL [facility] IMMATURE GRANULOCYTES ABS AUTO 0.01 0.00 - 0.03 10 3/uL [facility] 04/24/2025 1:17 PM EDT 04/24/2025 1:19 PM EDT Narrative [facility] - 04/24/2025 1:43 PM EDT Diaz Dalton MD [facility] Final [facility] * (ABNORMAL) ALL BASIC METABOLIC PANEL (04/24/2025 1:17 PM EDT) SODIUM 136 136 - 145 mmol/L [facility] POTASSIUM 4.6 3.5 - 5.1 mmol/L [facility] CHLORIDE 102 98 - 107 mmol/L [facility] CARBON DIOXIDE 31.1 21.0 - 32.0 mmol/L [facility] ANION GAP 7.5 [facility] GLUCOSE 366(H) 74 - 106 mg/dL [facility] BLOOD UREA NITROGEN 28.0(H) 7.0 - 18.0 mg/dL [facility] CREATININE 0.97 0.55 - 1.02 mg/dL [facility] EGFR-AF FRENCH >60 >=60 mL/min/1.7 3m 2 [facility] EGFR-NON AF FRENCH >60 >=60 mL/min/1.7 3m 2 [facility] BUN CREATININE RATIO 28.9 [facility] CALCIUM 8.9 8.5 - 10.1 mg/dL [facility] 04/24/2025 1:17 PM EDT 04/24/2025 1:19 PM EDT Narrative CLINISYNC - 04/24/2025 2:48 PM EDT Diaz Dalton MD [facility]IS[facility] Final [facility] * Diabetic Retinopathy Screening - OU - Both Eyes (03/25/2025 1:21 PM EDT) Anatomical Region Laterality Modality Head Other Lotus Diego MD OPHTH PHOTOGRAPHY Final Result * Colonoscopy (09/12/2024 11:13 AM [...] PM EDT Narrative 06/30/2024 7:54 [place] [address] Mammography Report Signed Patient: CARISSA LOZADA MR#: [id number] : 1980 Acct:[id number] Age/Sex: 43 / F ADM Date: 06/28/24 Loc: MAMMO Attending Dr: Feliz Benz D.O. Ordering Physician: Feliz Benz D.O. Results: Date of Service: 06/28/24 Follow Up: Procedure(s): MM tomosynthesis screening BI Accession Number(s): [id number] cc: Feliz Benz D.O.; Diaz Dalton M.D. Patient Name: CARISSA LOZADA MR#: [id number] : 1980 Exam Date: 06/28/2024 Ordering Doctor: [...] Treatments None Family Cancers None LOCATION: [facility] BREAST COMPOSITION: There are scattered areas [...] M.D. Signed By: 06/30/241953 DD/ 51 TD/TT: Pan Shover: Procedure Note Radiology, Radiologist, MD - 06/30/2024 [place] [address] Mammography Report Signed Patient: CARISSA LOZADA RMR#: [id number] : 1980Acct:[id number] Age/Sex: 43 / FADM Date: 06/28/24 Loc: MAMMO Attending Dr: Feliz Benz D.O. Ordering Physician: Feliz Benz D.O.Results: Date of Service: 06/28/24Follow Up: Procedure(s): MM tomosynthesis screening BI Accession Number(s): [id number] cc: Feliz Benz D.O.; Diaz Dalton M.D. Patient Name: CARISSA LOZADA MR#: [id number] : 1980 Exam Date: 06/28/2024 Ordering Doctor: DR Feliz Benz . RADIOLOGY REPORT PROCEDURE: MM TOMOSYNTHESIS SCREENING BI COMPARISON: MM TOMOSYNTHESIS SCREENING BI, 06/26/2023. MG MAMM [id number] DINAH CAD, 06/22/2022. MG MAMM SCREEN 3D DINAH CAD, 06/21/2021. MG MAMM BILDIAG W CAD, 02/02/2016. INDICATIONS: Screening Calculator Name NCI Breast Cancer Risk Assessment Tool 5 Year Breast Cancer Risk 0.80% Lifetime Breast Cancer Risk 9.80% Personal Breast Cancer No Personal Ovarian Cancer No Treatments None Family Cancers None LOCATION: [facility] BREAST COMPOSITION: There are scattered areas [...] Gunn M.D. Signed By:06/30/241953 DD/ 51 TD/TT: Pan Shover: [facility] Final Result from Last 3 Months or Most Recently Relevant to Health Maintenance Insurance MEDICAID [place] Care Teams Trip Follower Relationship Specialty Start Date End Date Diaz Dalton MD PCP - General Family Medicine 09/25/23
--- OUTSIDE RECORDS SUMMARY | 2025-06-05 08:04 | XMS_ITS | Clinical Summary ---
Author Organization [employer] Address [id number] [address] [place] [address] Care Team Providers Care Well Driller Helper Name Role Phone Diaz Dalton MD Primary Care Provider [phone] Allergies Active Allergy Reactions Criticality Noted Date [...] wheezing or shortness of breath. 18 g 12/22/19 24 Active lisinopriL (PRINIVIL,ZESTRIL) 2.5 mg tablet take 1 tablet by mouth every morning 30 tablet 2 04/17/20 24 Active topiramate (TOPAMAX) 25 mg capsule Take [...] as needed for muscle spasms. 30 tablet 06/29/20 24 Active naproxen (NAPROSYN) 500 mg tablet Take 1 tablet (500 mg total) by mouth in the morning and 1 tablet (500 mg total) in the evening. Take with meals. 30 tablet 06/29/20 24 Active furosemide (LASIX) 20 mg tabletIndications: Dyspnea on exertion,Pulmonary hypertension (CMS-HCC) Take 1 tablet (20 mg total) by mouth daily. 90 tablet 3 07/18/20 24 Active clonazePAM (KlonoPIN) 1 mg tablet Take 1 tablet (1 mg total) by mouth as needed in the morning and 1 tablet (1 mg total) as needed in the evening for seizures. Active citalopram (CeleXA) 20 mg tablet 08/13/20 24 Active FREESTYLE CEDRIC 14 DAY SENSOR kit 08/14/20 24 Active insulin aspart U-100 (NovoLOG) 100 unit/mL (3 mL) insulin pen in the morning and at noon and in the evening. Take with meals. Active nabumetone (RELAFEN) 500 mg tablet Take 1 tablet (500 mg total) by mouth as needed in the morning and 1 tablet (500 mg total) as needed in the evening. 08/15/20 24 Active LORazepam (ATIVAN) 1 mg tablet Take 1 tablet (1 mg total) by mouth as needed in the morning and 1 tablet (1 mg total) as needed at noon and 1 tablet (1 mg total) as needed in the evening. 07/10/20 24 Active empagliflozin (JARDIANCE) 10 mg tablet tablet Take 1 tablet (10 mg total) by mouth in the morning. 90 tablet 3 10/07/19 25 Active tirzepatide (MOUNJARO) 5 mg/0.5 mL pen injectorIndication s:Type 2 diabetes mellitus with hyperglycemia, with long-term current use of insulin ([facility]) Inject 5 mg under the skin every 7 days. 6 mL 3 10/07/19 25 Active ondansetron ODT (ZOFRAN ODT) 4 mg disintegrating tablet Dissolve 1 tablet (4 mg total) on tongue every 8 (eight) hours as needed for nausea for up to 10 doses. 10 tablet 10/27/19 25 Active TRELEGY ELLIPTA 200-62.5-25 mcg blister with device Inhale 1 puff in the morning. 60 each 11 03/24/20 25 Active albuterol (PROVENTIL,VENTOLI N) 2.5 mg /3 mL (0.083 %) nebulizer solutionIndication s:Moderate persistent asthma without complication Inhale 3 mL (2.5 mg total) by nebulization 4 (four) times a day as needed for wheezing. 75 mL 12 05/07/20 25 Active Active Problems Problem Noted Date [...] Encounters Date Type Department Care Team Description 05/14/2025 12:00 PM EDT Office Visit [facility] [address] [place] [address] Suzette Madrigal, IGNITION SPECIALIST-INTERNIST Obstructive sleep apnea syndrome (Primary Dx); Dyspnea on exertion; Moderate persistent asthma without complication; Chronic hypoxic respiratory failure ([facility]); BMI 40.0-44.9, adult ([facility]); Obesity, morbid, BMI 40.0-49.9 ([facility]) 05/14/2025 Telephone [facility] [address] [place] [address] Silvia Otero RMA 05/14/2025 Travel 05/07/2025 Results Follow-Up [facility] [address] [place] [address] Shania Lopez MD Home O2 evaluation 05/01/2025 Telephone [facility] [address] [place] [address] Silvia Otero RMA 05/01/2025 Orders Only [facility] [address] [place] [address] Silvia Otero, MOIZ Hypoxia (Primary Dx); Dyspnea on exertion 03/24/2025 Refill [facility] [place] [address] Silvia Otero RMA 03/13/2025 9:30 AM EDT Office Visit [facility] [address] [place] [address] Cristina Arrieta DO Moderate persistent asthma without complication (Primary Dx); Chronic hypoxic respiratory failure ([facility]) 03/13/2025 Telephone [facility] [address] [place] [address] Silvia Otero RMA 03/13/2025 Travel 03/11/2025 Telephone [facility] Medication Management [address] [place] [address] Medication Management, [facility] 03/05/2025 Telephone [facility] Medication Management [address] [place] [address] Medication Management, [facility] 03/05/2025 Telephone [facility] [address] [place] [address] Jorge L Givens RN PPMM referral from Last 3 Months Immunizations Immunization Administration [...] drink = 0.6 oz pur e alcohol) [facility] Utilities Answer Date Recorded In the past 12 months has [employer], gas, oil, or water [employer] threatened to shut off services in your [...] any clubs o r organizations such as amish groups, unions, fraternal or athletic groups, or [...] Answer Date Recorded Total Score 4 06/05/2023 [facility] ional [facility] - Occupational Stress Questionnaire Answer Date [...] Recorded Do you need help finding a [facility] career center and/or a training [...] Sign Reading Time Taken Comments Blood Pressure 107/73 05/14/2025 11:54 AM EDT Pulse 77 05/14/2025 11:54 AM EDT Temperature 36.9 C (98.4 F) 10/27/2024 3:00 PM EST Respiratory Rate 16 10/27/2024 6:57 PM EST Oxygen Saturation 100% 05/14/2025 11: 54 AM EDT Arrived on 3Lnc of O2 Inhaled Oxygen Concentration - - Weight 98 kg (216 lb 1.6 oz) 05/14/2025 11:54 AM EDT Height 154.9 cm (5' 1 ) 05/14/2025 11:5 4 AM EDT Body Mass Index 40.83 05/14/2025 11:54 AM EDT Plan of Treatment Upcoming Encounters Date Type Department Care Team (Late st Contact Info) Description 07/07/2025 9:30 AM EST Office Visit [facility] [address] [place] [address] Adriane Woods, IGNITION SPECIALIST-INTERNIST [address] [place] [phone] Chasidy Lai PA-C [address] [place] [address] Health Maintenance Due Date Last Done Comments Diabetic Ophthalmology Exam 1980 Statin Use: Diabetic 1980 Adult BMI Follow Up Plan 1997 Diabetic Foot Exam 1997 Depression Screening 06/05/2024 06/05/2023 COVID-19 Vaccine (2024-2 6 season) 2025 07/01/2021, 06/09/2021 Influenza Vaccine 05/05/2025 06/15/2020, , 04/22/2017, Additional history exists Adult BMI Screening 05/14/2026 05/14/2025 Tobacco Screening 05/14/2026 05/14/2025 Pap Smear 08/06/2027 08/06/2024, 07/06, 07/14/2022 Colonoscopy [...] Procedure Name Priority Date/Time Associated Diagnosis Comments HOME O2 EVALUATION Routine 05/07/2025 3: 46 PM EDT Hypoxia Dyspnea on exertion PROVATION COLONOSCOPY Routine 09/12/2024 9:04 AM EST from Last 3 Months or Most Recently Relevant to Health Maintenance Results * Home O2 evaluation (05/07/2025 3:46 PM EDT) Narrative MANUALLY TRANSCRIBED RESULTS - 05/07/2025 3:46 PM EDT Pulse Oximetry Report Recording Information Site of recording: Home Type: Comprehensive Respiratory Support: Nasal cannula O2 Flow: 3 LPM Results: On Room Air Resting SaO2: 97 % Resting HR: 82 bpm Exercise SaO2: 87 % Exercise HR: 114 bpm On O2 O2: 3 LPM Nocturnal SaO2: (56-100) Time with SpO2<89: 1h 59 min Nocturnal HR: (75-99) Resting SaO2: 100 % Resting HR: 82 bpm Exercise SaO2: 93 % Exercise HR: 110 bpm Comments: Six minute walk completed. Noct pox on 3lpm oxygen. Respiratory Therapist: Arlene Gilman RCP Cristina Arrieta DO RESPIRATORY CARE ORDERABLES F inal Result MANUALLY TRANSCRIBED RESULTS * Colonoscopy Report [...] Recently Relevant to Health Maintenance Insurance [place] Advance Directives * Full Code (Latest Code [...] 2:48 PM 03/03/2019 5:59 PM Care Teams Well Driller Helper Relationship Specialty Start Date End Date Diaz Dalton MD PCP - General Family Medicine 10/27/24
--- OUTSIDE RECORDS SUMMARY | 2025-06-05 08:04 | XMS_ITS | Encounter Summary ---
Author Organization [facility] Address [address] [facility] [place] [address] Care Team Providers Care Therapeutic Recreation Assistant Name Role Phone Diaz Dalton MD Primary Care Provider [phone] Encounter Details Date Type Department Care Team ([facility] Contact Info) Description 06/03/2025 Bamboo flowsheet [facility] [address] [place] [address] Cholo Strong PA [address] [place] [address] Social History Tobacco Use Types Packs/Day Years [...] Upcoming Encounters Date Type Department Care Team ([facility] Contact Info) Description 06/30/2025 10:10 AM EDT Office Visit [facility] [place] [facility] [address] [facility] [place] [place] [phone] Feliz Benz DO [address] [place], [place] [phone] 07/10/2025 1:00 PM EST Office Visit [facility] [facility] [address] [place] [address] Barry Martinez, [place] [address] [place], [place] [address] 08/19/2025 2:00 PM EST Office Visit [facility] [address] [place] [address] Feliz Benz DO [address] [facility] [place] [address] documented as of this encounter Visit Diagnoses Not on filedocumented in this encounter Care Teams Therapeutic Recreation Assistant Relationship Specialty Start Date End Date Diaz Dalton MD PCP - General Family Medicine 09/25/23 documented as of this encounter
--- OUTSIDE RECORDS SUMMARY | 2025-06-05 08:05 | XMS_ITS | Encounter Summary ---
Author Organization [facility] Address [address] [place] [address] Care Team Providers Care Construction Project Manager Name Role Phone Diaz Dalton MD Primary Care Provider [phone] Encounter Details Date Type Department Care Team ([facility] Contact Info) Description 04/24/2025 Results Follow-Up [facility] [address] [place] [address] Diaz Dalton MD [address] [facility] [place] [address] ALL CBC WITH AUTO DIFF, MLR HEMOGLOBIN A1C, HMHP LIVER PANEL, Additional followed-up results: 4 Social History Tobacco Use Types Packs/Day Years [...] [facility] Contact Info) Description 06/30/2025 10:10 AM EDT Office Visit [facility] [place] [facility] [address] [place] [phone] Feliz Benz DO [address] [place] [address] 07/10/2025 1:00 PM EST Office Visit [facility] [address] [place] [address] Barry Martinez, ALUMINUM CONTAINER TESTER [address] [place], [place] [phone] 08/19/2025 2:00 PM EST Office Visit [facility] [place] [facility] [address] [facility] [place] [phone] Feliz Benz DO [address] [facility] [address] [place], [place] [phone] documented as of this encounter Visit Diagnoses Diagnosis Type 2 diabetes mellitus with hyperglycemia, with long-term current use of insulin (HCC)- Primary documented in this encounter Care Teams Construction Project Manager Relationship Specialty Start Date End Date Diaz Dalton MD PCP - General Family Medicine 09/25/23 documented as of this encounter
--- OUTSIDE RECORDS SUMMARY | 2025-06-05 08:05 | XMS_ITS | Encounter Summary ---
Author Organization [facility] Address [address] [place] [address] Care Team Providers Care Maintenance Manager Name Role Phone Diaz Dalton MD Primary Care Provider [phone] Reason for Visit * Reason Onset Date Comments ? surgery 05/29/2025 Encounter Details Date Type Department Care Team ([facility] Contact Info) Description 05/29/2025 Telephone [facility] [address] [facility] [address] [place] [phone] Jr. Harinder Jackson, DO [address] [place] [address] ? surgery Social History Tobacco Use Types Packs/Day Years [...] encounter Miscellaneous Notes * Telephone Encounter - Renetta Simons MA - 06/03/2025 2:[address] Jackson did say that it is okay to have her procedure done after her scope with Demar. * Telephone Encounter - Renetta Simons MA - 06/02/2025 8:11 AM EDT Late entry: I spoke to Paddy at [facility], he did talk to anesthesia. It will be up to Dr. Jackson, I will speak to him tomorrow. * Telephone Encounter - Mary Shane - 05/29/2025 3:58 PM EDT Gynecology scheduled her for a procedure 06/20/25 & is scheduled for knee scope 06/26/[address] Jackson Asking if this is ok to have both in this time period? documented in this encounter Plan of Treatment Upcoming Encounters Date Type Department Care Team (Late st Contact Info) Description 06/30/2025 10:10 AM EDT Office Visit [facility] [address] [place] [phone] Feliz Benz, DO [address] [place], [place] [phone] 07/10/2025 1:00 PM EST Office Visit [facility] [address] [place] [phone] Barry Martinez, TELEVISION SCRIPT WRITER [address] [place] [address] 08/19/2025 2:00 PM EST Office Visit [facility] [address] [place] [address] Feliz Benz, DO [address] [place] [address] documented as of this encounter Visit Diagnoses Not on filedocumented in this encounter Care Teams Maintenance Manager Relationship Specialty Start Date End Date Diaz Dalton MD PCP - General Family Medicine 09/25/23 documented as of this encounter
--- OUTSIDE RECORDS SUMMARY | 2025-06-05 08:06 | XMS_ITS | Encounter Summary ---
Author Organization [employer] Address [id number] [address] [place] [address] Care Team Providers Care Hand Driller Name Role Phone Diaz Dalton MD Primary Care Provider [phone] Encounter Details Date Type Department Care Team (Late st Contact Info) Description 08/08/2023 Telephone [facility] [address] [place] [address] Stacey Mtz, GE[place] Social History [...] often do you attend chur ch or christianity services? Never 06/05/2023 Do you belong to [...] Answer Date Recorded Total Score 4 06/05/2023 [facility] - Occupational [...] Recorded Do you need help finding a [facility], [facility] career [facility] and/or a training program? No [...] - 08/08/2023 2:34 PM EST P/C from [facility] radiology with alert of significant abnormal result of CTA coronaries. Arlene at [facility] office notified. documented in this encounter Plan of Treatment Upcoming Encounters Date Type Department Care Team (Late st Contact Info) Description 07/07/2025 9:30 AM EST Office Visit [facility] [address] [place] [address] Adriane Woods, SYSTEMS ARCHITECTURE ANALYST-PHILOSOPHY LECTURER [address] [place] [address] Chasidy Lai PA-C [address] [place] [address] documented as of this encounter Visit Diagnoses Not on filedocumented in this encounter Additional Health Concerns Infection Onset Date Last Indicated Resolved Time COVID-19 Rule-Out 07/21/2024 07/21/2024 07/21/2024 6:08 PM EST Assessment Noted Time PHQ-9 Depression Total Score: 4 06/05/20 23 1:13 AM EDT documented as of this encounter Care Teams Hand Driller Relationship Specialty Start Date End Date Diaz Dalton MD PCP - General Family Medicine 10/27/24 documented as of this encounter
--- OUTSIDE RECORDS SUMMARY | 2025-06-05 08:06 | XMS_ITS | Clinical Summary ---
Author Organization [facility] Address [address], [address] [place] [address] Care Team Providers Care Washateria Attendant Name Role Phone Diaz Dalton MD [...] 9:46 AM 10/03/2021 4:19 PM Care Teams Washateria Attendant Relationship Specialty Start Date End Date Diaz Dalton MD [address] [place] [address] PCP - General Family Medicine 09/28/21
--- OUTSIDE RECORDS SUMMARY | 2025-06-05 08:07 | XMS_ITS | Encounter Summary ---
Author Organization [facility] Address [address] [place] [address] Care Team Providers Care Airplane First Officer Name Role Phone Diaz Dalton MD Primary Care Provider [phone] Encounter Details Date Type Department Care Team (Late Contact Info) Description 03/25/2025 Orders Only [facility] [address] [facility] [place] [address] Lotus Diego MD [address] [facility] [place], [place] [phone] Social History Tobacco Use Types Packs/Day Years [...] Department Care Team (Late Contact Info) Description 06/30/2025 10:10 AM EDT Office Visit [facility] [place] [facility] [address] [facility] [place] [address] Feliz Benz DO [address] [facility] [place] [address] 07/10/2025 1:00 PM EST Office Visit [facility] [address] [place] [address] Barry Martinez, HAT MARKER [address] [place], [place] [phone] 08/19/2025 2:00 PM EST Office Visit [facility] [place] [address] [place] [address] Feliz Benz DO [address] [facility] [place] [address] documented as of this encounter Procedures Procedure [...] on filedocumented in this encounter Care Teams Airplane First Officer Relationship Specialty Start Date End Date Diaz Dalton MD PCP - General Family Medicine 09/25/23 documented as of this encounter
--- OUTSIDE RECORDS SUMMARY | 2025-06-05 08:08 | XMS_ITS | Encounter Summary ---
Author Organization [facility] Address [address] [place] [address] Care Team Providers Care Children'S Author Name Role Phone Diaz Dalton MD Primary Care Provider [phone] Diaz Dalton MD Primary Care Provider [phone] Encounter Details Date Type Department Care Team (Late Contact Info) Description 06/30/2023 Clinisync Result Encounter NOMS External Department Unsolicited Erik Benz, DO [address] [place] [address] Social History Tobacco Use Types Packs/Day [...] Date Type Department Care Team ([facility] Contact Info) Description 06/30/2025 10:10 AM EDT Office Visit [facility] [place] [facility] [address] [place] [phone] Erik Benz DO [address] [place], [place] [id number] 07/10/2025 1:00 PM EST Office Visit [facility] [address] [place] [address] Barry Martinez, [place] [address] [place], [place] [address] 08/19/2025 2:00 PM EST Office Visit [facility] [place] [facility] [address] [facility] [place] [phone] Erik Benz, DO [address] [facility] [place] [address] documented as of this encounter Procedures Procedure Name Priority Date/Time Associated Diagnosis Comments MM TOMOSYNTHESIS SCREENING BI 06/30/2023 2:59 PM EDT documented in this encounter Results * MM TOMOSYNTHESIS SCREENING BI (06/30/2023 2:59 PM EDT) Anatomical Region Laterality Modality Other 06/30/2023 2:59 PM EDT Narrative 06/30/2023 2:59 PM EDT The [address] [address] Mammography Report Signed Patient: CARISSA MILLER MR#: [id number] : 1980 Acct:[id number] Age/Sex: 42 / F ADM Date: 06/26/23 Loc: MAMMO Attending Dr: Erik Benz D.O. Ordering Physician: Erik Benz D.O. Results: Date of Service: 06/26/23 Follow Up: Procedure(s): MM tomosynthesis screening BI Accession Number(s): [id number] cc: Erik Benz D.O.; Diaz Dalton M.D. Patient: CARISSA MILLER Exam Date: 06/26/2023 : 1980 Gender:F Ordering : DR ERIK BENZ . Admission #: [id number] Family : DR Daiz Dalton . Order #: [id number] CLICK HERE TO VIEW EXAM RADIOLOGY REPORT [...] Treatments None Family Cancers None LOCATION: The [facility] BREAST COMPOSITION: Scattered areas fibroglandular density. FINDINGS: [...] Signed By: 06/30/23 1500 DD/ 1459 TD/TT: Segmental Wall Installer: Procedure Note Radiology, Radiologist, MD - 06/30/2023 [place] [address] Mammography Report Signed Patient: CARISSA MILLER RMR#: [id number] : 1980Acct:[id number] Age/Sex: 42 / FADM Date: 06/26/23 Loc: MAMMO Attending Dr: Erik Benz D.O. Ordering Physician: Erik Benz D.O.Results: Date of Service: 06/26/23Follow Up: Procedure(s): MM tomosynthesis screening BI Accession Number(s): [id number] cc: Erik Benz D.O.; Diaz Dalton M.D. Patient: CARISSA MILLER Exam Date: 06/26/2023 : 1980 Gender:F Ordering : DR ERIK BENZ . Admission #: [id number] Family : DR Diaz Dalton . Order #: [id number] CLICK HERE TO VIEW EXAM RADIOLOGY REPORT [...] Treatments None Family Cancers None LOCATION: The [facility] BREAST COMPOSITION: Scattered areas fibroglandular density. FINDINGS: [...] 14:59 Dictated By: Kamron Gunn M.D. Signed By:06/30/23 1500 DD/ 1459 TD/TT: Segmental Wall Installer: us Erik Benz DO [facility] Final Result documented in this encounter Visit Diagnoses Not on filedocumented in this encounter Care Teams Children'S Author Relationship Specialty Start Date End Date Diaz Dalton MD PCP - General Family Medicine 03/02/23 09/24/23 Diaz Dalton MD PCP - General Family Medicine 09/25/23 documented as of this encounter
--- OUTSIDE RECORDS SUMMARY | 2025-06-05 08:08 | XMS_ITS | Encounter Summary ---
Author Organization [facility] Address [address] [place] [address] Care Team Providers Care Carton Making Machinist Name Role Phone Diaz Dalton MD Primary Care Provider [phone] Reason for Visit * Reason Onset Date Comments About her prescription for 2 wheel walker 2024 Encounter Details Date Type Department Care Team ([facility] Contact Info) Description 06/04/2025 Telephone [facility] [address] [place] [address] Jr. Harinder Jackson, DO [address] [address] About her prescription for 2 wheel walker Social History Tobacco Use Types Packs/Day Years [...] Telephone Encounter - Renetta Simons MA - 06/04/2025 1:49 PM EDT Perla is at lunch until 2:00, I will call back after she gets back. * Telephone Encounter - Tracy Olivera - 06/04/2025 1:38 PM EDT Regine from [employer] [facility] called about Carissa Miller's 2 wheel walker prescription can we pls give her a call back at [phone] documented in this encounter Plan of Treatment Upcoming Encounters Date Type Department Care Team (Late st Contact Info) Description 06/30/2025 10:10 AM EDT Office Visit [facility] [address] [facility] [place] [address] Feliz Benz, DO [address] [place] [address] 07/10/2025 1:00 PM EST Office Visit [facility] [address] [facility] [place] [address] Barry Martinez, TOOL AND DIE ASSEMBLER [address] [place] [place] [address] 08/19/2025 2:00 PM EST Office Visit [facility] [address] [facility] [place] [address] Feliz Benz, DO [address] [place] [address] documented as of this encounter Visit Diagnoses Not on filedocumented in this encounter Care Teams Carton Making Machinist Relationship Specialty Start Date End Date Diaz Dalton MD PCP - General Family Medicine 09/25/23 documented as of this encounter
--- OUTSIDE RECORDS SUMMARY | 2025-06-05 08:08 | XMS_ITS | Encounter Summary ---
Author Organization [facility] Address [address] [place] [address] Care Team Providers Care Billing Assistant Name Role Phone Diaz Dalton MD Primary Care Provider [phone] Diaz Dalton MD Primary Care Provider [phone] Encounter Details Date Type Department Care Team (Late Contact Info) Description 04/06/2023 Abstract [facility] [address] [place] [address] Barry Martinez, SHIP JOINER [address] [place] [address] Social History Tobacco Use Types [...] Upcoming Encounters Date Type Department Care Team ([facility] Contact Info) Description 06/30/2025 10:10 AM EDT Office Visit [facility] [place] [facility] [address] [facility] [place] [phone] Feliz Benz DO [address] [place] [address] 07/10/2025 1:00 PM EST Office Visit [facility] [address] [place] [address] Barry Martinez, SHIP JOINER [address] [place], [place] [phone] 08/19/2025 2:00 PM EST Office Visit [facility] [address] [place] [phone] Feliz Benz DO [address] [place] [address] documented as of this encounter Visit Diagnoses Not on filedocumented in this encounter Care Teams Billing Assistant Relationship Specialty Start Date End Date Diaz Dalton MD PCP - General Family Medicine 03/02/23 09/24/23 Diaz Dalton MD PCP - General Family Medicine 09/25/23 documented as of this encounter
--- OUTSIDE RECORDS SUMMARY | 2025-06-05 08:08 | XMS_ITS | Encounter Summary ---
Author Organization [facility] Address [address] [place] [address] Care Team Providers Care Gore Cutter Name Role Phone Diaz Dalton MD Primary Care Provider [phone] Encounter Details Date Type Department Care Team ([facility] Contact Info) Description 06/03/2025 Orders Only [facility] [address] [place] [address] Renetta Simons MA Pre-op examination (Primary Dx) Social History Tobacco [...] Upcoming Encounters Date Type Department Care Team ([facility] Contact Info) Description 06/30/2025 10:10 AM EDT Office Visit [facility] [place] [facility] [address] [facility] [address] Feliz Benz DO [address] [place] [address] 07/10/2025 1:00 PM EST Office Visit [facility] [address] Barry Martinez, JOURNEYMAN MILLWRIGHT [address] [place] [address] 08/19/2025 2:00 PM EST Office Visit [facility] [address] [facility] [place] [address] Feliz Benz DO [address] [facility] [place] [address] documented as of this encounter Visit Diagnoses Diagnosis Pre-op examination- Primary documented in this encounter Care Teams Gore Cutter Relationship Specialty Start Date End Date Diaz Dalton MD PCP - General Family Medicine 09/25/23 documented as of this encounter
--- OUTSIDE RECORDS SUMMARY | 2025-06-05 08:08 | XMS_ITS | Encounter Summary ---
Author Organization [facility] Address [address] [place] [address] Care Team Providers Care Facility Attendant Name Role Phone Diaz Dalton MD Primary Care Provider [phone] Encounter Details Date Type Department Care Team ([facility] Contact Info) Description 05/28/2024 Orders Only [facility] [address] [place] [address] Diaz Dalton MD [address] [place] [address] Social History Tobacco Use Types Packs/Day Years [...] Upcoming Encounters Date Type Department Care Team ([facility] Contact Info) Description 06/30/2025 10:10 AM EDT Office Visit [facility] [address] [facility] [place] [phone] Feliz Benz DO [address] [place], [place] [address] 07/10/2025 1:00 PM EST Office Visit [facility] [place] [facility] [address] [facility] [place] [address] Barry Martinez, FREELANCE INTERPRETER/TRANSLATOR [address] [place] [address] 08/19/2025 2:00 PM EST Office Visit [facility] [place] [facility] [address] [place] [phone] Feliz Benz DO [address] [facility] [place] [address] documented as of this encounter Visit Diagnoses Not on filedocumented in this encounter Care Teams Facility Attendant Relationship Specialty Start Date End Date Diaz Dalton MD PCP - General Family Medicine 09/25/23 documented as of this encounter
--- NOTE | 2025-06-05 08:09 | ECG_ITS ---
[facility] Test Date: 2025-06-05 Pat Name: YAMILA LOZADA Department: Room: - Gender: Female Rn Mental Health: : 1980 Requested By: ERIK BURR Order Number: [id number] Reading MD: LEONCIO TORRES M.D. Measurements Intervals [place] Rate: 85 P: 62 AR: 151 QRS: 109 QRSD: 89 T: 82 QT: 347 QTc: 413 Interpretive Statements SINUS RHYTHM POSSIBLE RIGHT VENTRICULAR HYPERTROPHY [SOME/ALL OF: PROMINENT R IN V1, LATE TRANSITION, RAD, LIAN, SSS] MODERATE T-WAVE ABNORMALITY, CONSIDER ANTERIOR ISCHEMIA [-0.1+ mV T WAVE IN V3/V4] Abnormal ECG Compared to ECG 03/16/2023 10:42:24 T-wave abnormality now present Possible ischemia now present Electronically Signed On 06-05-2025 11:48:00 EDT by LEONCIO TORRES M.D.
--- OUTSIDE RECORDS SUMMARY | 2025-06-05 08:09 | XMS_ITS | Encounter Summary ---
Author Organization [facility] [employer] Address [id number] [address] [place] [address] Care Team Providers Care Cooling System Operator Name Role Phone Diaz Dalton MD Primary Care Provider [phone] Encounter Details Date Type Department Care Team (Late st Contact Info) Description 12/22/2023 Telephone [facility] [address] [facility] [address] [place] [address] Gilma Tejada Social History Tobacco Use Types Packs/Day Years Used Date Smoking Tobacco: Never Smokeless Tobacco: Never Alcohol Use Standard Drinks/Week Comments Yes 0 (1 standard drink = 0.6 oz pur e alcohol) occasionally-once a month [facility] Utilities Answer Date Recorded In the [...] often do you attend chur ch or methodist services? Never 12/20/2023 Do you belong to any clubs o r organizations such as quaker groups, unions, fraternal or athletic groups, or [...] Answer Date Recorded Total Score 4 06/05/2023 [facility] of Occupat ional Health - Occupational Stress [...] Cardiology [address] [place] [address] Adriane Woods, HEAD TRIMMER-POWDER COMPOUNDER [address] [place] [phone] Chasidy Lai PA-C [address] [place] [address] documented as of this encounter Visit Diagnoses Not on filedocumented in this encounter Additional Health Concerns Infection Onset Date Last Indicated Resolved Time COVID-19 Rule-Out 07/21/2024 07/21/2024 07/21/2024 6:08 PM EST Assessment Noted Time PHQ-9 Depression Total Score: 4 06/05/20 23 1:13 AM EDT documented as of this encounter Care Teams Cooling System Operator Relationship Specialty Start Date End Date Diaz Dalton MD PCP - General Family Medicine 10/27/24 documented as of this encounter
--- OUTSIDE RECORDS SUMMARY | 2025-06-05 08:09 | XMS_ITS | Encounter Summary ---
Author Organization [facility] [employer] Address [id number] [address] [place] [address] Care Team Providers Care Compliance Review Specialist Name Role Phone Diza Dalton MD Primary Care Provider [phone] Encounter Details Date Type Department Care Team (Late st Contact Info) Description 12/25/2023 Orders Only [facility] [address] [facility] [address] [place] [address] Stella Reyes, GEORGINA SOB (shortness of breath) (Primary Dx) Social History Tobacco Use Types Packs/Day Years Used Date Smoking Tobacco: Never Smokeless Tobacco: Never Alcohol Use Standard Drinks/Week Comments Yes 0 (1 standard drink = 0.6 oz pur e alcohol) occasionally-once a month [facility] Utilities Answer Date Recorded In the past 12 months has [employer], gas, oil, or water company threatened [...] often do you attend chur ch or episcopal services? Never 12/20/2023 Do you belong to any clubs o r organizations such as baptism groups, unions, fraternal or athletic groups, or [...] Answer Date Recorded Total Score 4 06/05/2023 [facility] of Occupat ional Health - Occupational [...] Recorded Do you need help finding a [facility] career center and/or a training program? [...] Cardiology [address] [place] [address] Adriane Woods, SOCIAL SERVICE COORDINATOR-ASSEMBLER [employer] [address] [place] [address] Chasidy Lai PA-C [address] [place], [place] [address] documented as of this encounter Results * [...] documented as of this encounter Care Teams Compliance Review Specialist Relationship Specialty Start Date End Date Diaz Dalton MD PCP - General Family Medicine 10/27/24 documented as of this encounter
--- OUTSIDE RECORDS SUMMARY | 2025-06-05 08:09 | XMS_ITS | Encounter Summary ---
Author Organization [facility] Address [address] [facility] [place] [address] Care Team Providers Care Application Security Architect Name Role Phone Diaz Dalton MD Primary Care Provider [phone] Encounter Details Date Type Department Care Team ([facility] Contact Info) Description 09/12/2024 Orders Only [facility] [address] [facility] [place] [address] Marques Szymansik DO [address] [place] [phone] Social History Tobacco Use Types Packs/Day Years [...] Upcoming Encounters Date Type Department Care Team ([facility] Contact Info) Description 06/30/2025 10:10 AM EDT Office Visit [facility] [address] [place] [address] Feliz Benz DO [address] [place], [place] [address] 07/10/2025 1:00 PM EST Office Visit [facility] [address] [place] [address] Barry Martinez, [place] [address] [place], [place] [address] 08/19/2025 2:00 PM EST Office Visit [facility] [place] [facility] [address] [place] [address] Feliz Benz DO [address] [place] [address] documented as of this encounter Procedures [...] on filedocumented in this encounter Care Teams Application Security Architect Relationship Specialty Start Date End Date Diaz Dalton MD PCP - General Family Medicine 09/25/23 documented as of this encounter
--- OUTSIDE RECORDS SUMMARY | 2025-06-05 08:10 | XMS_ITS | Encounter Summary ---
Author Organization [facility] Address [id number] [address] [place] [address] Care Team Providers Care Cognos Name Role Phone Diaz Dalton MD Primary Care Provider [phone] Encounter Details Date Type Department Care Team ([facility] st Contact Info) Description 02/20/2024 Orders Only [facility] [address] [address] Cristina Arrieta DO [address] [facility] [address] [place] [address] Social History Tobacco Use Types Packs/Day Years Used Date Smoking Tobacco: Never Smokeless Tobacco: Never Alcohol Use Standard Drinks/Week Comments Yes 0 (1 standard drink = 0.6 oz pur e alcohol) occasionally-once a month [facility] Utilities Answer Date Recorded In the past 12 months has [employer], gas, oil, or water [employer] threatened to shut off services in your [...] attend chur ch or sabianist services? Never 12/20/2023 Do you belong to any clubs o r organizations such as gnosticist groups, unions, fraternal or athletic groups, or [...] Answer Date Recorded Total Score 4 06/05/2023 [facility] of Occupat ional Health - Occupational Stress [...] Recorded Do you need help finding a [facility] career center and/or a training program? No [...] Cardiology [address] [place] [address] Adriane Woods, MANAGER-TOP STEEP TENDER [address] [place] [address] Chasidy Lai PA-C [address] [place] [address] documented as of this encounter Visit Diagnoses Not on filedocumented in this encounter Additional Health Concerns Infection Onset Date Last Indicated Resolved Time COVID-19 Rule-Out 07/21/2024 07/21/2024 07/21/2024 6:08 PM EST Assessment Noted Time PHQ-9 Depression Total Score: 4 06/05/20 23 1:13 AM EDT documented as of this encounter Care Teams Cognos Relationship Specialty Start Date End Date Diaz Dalton MD PCP - General Family Medicine 10/27/24 documented as of this encounter
--- OUTSIDE RECORDS SUMMARY | 2025-06-05 08:10 | XMS_ITS | Encounter Summary ---
Author Organization [facility] Address [address] [place] [address] Care Team Providers Care Furnace Combustion Analyst Name Role Phone Diaz Dalton MD Primary Care Provider [phone] Encounter Details Date Type Department Care Team ([facility] Contact Info) Description 08/05/2024 Orders Only [facility] [address] [place] [address] Hair See MD [address] [place] [address] Social History Tobacco Use Types Packs/Day Years [...] Upcoming Encounters Date Type Department Care Team ([facility] Contact Info) Description 06/30/2025 10:10 AM EDT Office Visit [facility] [address] [facility] [address] Feliz Benz DO [address] [place], [place] [address] 07/10/2025 1:00 PM EST Office Visit [facility] [address] [place] [address] Barry Martinez, [place] [address] [place], [place] [address] 08/19/2025 2:00 PM EST Office Visit [facility] [place] [facility] [address] [facility] [address] Feliz Benz DO [address] [facility] [place] [address] documented as of this encounter Procedures Procedure Name Priority Date/Time Associated Diagnosis Comments BASIC METABOLIC PANEL Routine 07/30/2024 8:42 AM EST documented in this encounter Results * Basic metabolic panel (07/30/2024 8:42 AM EST) Blood Venous blood specimen / Unknown us Hair See MD LAB BLOOD ORDERABLES Final Re sult documented in this encounter Visit Diagnoses Not on filedocumented in this encounter Care Teams Furnace Combustion Analyst Relationship Specialty Start Date End Date Diaz Dalton MD PCP - General Family Medicine 09/25/23 documented as of this encounter
--- OUTSIDE RECORDS SUMMARY | 2025-06-05 08:10 | XMS_ITS | Encounter Summary ---
Author Organization [facility] Address [address] [place] [address] Care Team Providers Care Intranet Specialist Name Role Phone Diaz Dalton MD Primary Care Provider [phone] Encounter Details Date Type Department Care Team ([facility] Contact Info) Description 08/13/2024 Orders Only [facility] [address] [facility] [place] [address] Tory Kunz LPN 102 [facility] [address] [place] [address] Social History Tobacco Use Types Packs/Day Years [...] Upcoming Encounters Date Type Department Care Team ([facility] Contact Info) Description 06/30/2025 10:10 AM EDT Office Visit [facility] [address] [facility] [place] [address] Feliz Benz DO [address] [facility] [address] [place] [place], [place] [address] 07/10/2025 1:00 PM EST Office Visit [facility] [address] [place] [address] Barry Martinez, [place] [address] [place], [place] [address] 08/19/2025 2:00 PM EST Office Visit [facility] [place] [facility] [address] [facility] [address] Feliz Benz DO [address] [facility] [place] [address] documented as of this encounter Procedures [...] on filedocumented in this encounter Care Teams Intranet Specialist Relationship Specialty Start Date End Date Diaz Dalton MD PCP - General Family Medicine 09/25/23 documented as of this encounter
--- OUTSIDE RECORDS SUMMARY | 2025-06-05 08:10 | XMS_ITS | Encounter Summary ---
Author Organization [facility] Address [address] [place] [address] Care Team Providers Care Floor Press Operator Name Role Phone Diaz Dalton MD Primary Care Provider [phone] Reason for Visit * Reason Comments Med Refill Encounter Details Date Type Department Care Team ([facility] Contact Info) Description 11/16/2023 Refill [facility] [address] [place] [address] Diaz Dalton MD [address] [place] [address] Irritable bowel syndrome with diarrhea (Primary Dx) [...] dose of insulin. * Telephone Encounter - Tory Strong MA - 11/17/2023 8:41 AM EDT Patient called states she is having a biopsy done November 21 and they told her to ask her pcp how much insulin she should take prior to procedure. clm documented in this encounter Plan of Treatment Upcoming Encounters Date Type Department Care Team (Late st Contact Info) Description 06/30/2025 10:10 AM EDT Office Visit [facility] CARRERA [address] [place] [address] Feliz Benz, DO [address] [place] [address] 07/10/2025 1:00 PM EST Office Visit [facility] [address] [place] [address] Barry Martinez, [place] [address] [place] [address] 08/19/2025 2:00 PM EST Office Visit [facility] [address] [facility] [address] Feliz Benz, DO [address] [place] [address] documented as of this encounter Visit Diagnoses Diagnosis Irritable bowel syndrome with diarrhea- Primary Irritable bowel syndrome documented in this encounter Care Teams Floor Press Operator Relationship Specialty Start Date End Date Diaz Dalton MD PCP - General Family Medicine 09/25/23 documented as of this encounter
--- OUTSIDE RECORDS SUMMARY | 2025-06-05 08:10 | XMS_ITS | Encounter Summary ---
Author Organization [facility] Address [address], [address] [place] [address] Care Team Providers Care Spring Assembler Name Role Phone Diaz Dalton MD Primary Care Provider + Reason for Visit * Reason Comments Medication Refill ProAir Encounter Details Date Type Department Care Team (Late st Contact Info) Description 10/11/2021 Refill [facility] [address] [place] [address] Jesus Garcia MD [address] [place], [place] [id number] Medication Refill (ProAir) Social History Tobacco Use [...] on filedocumented in this encounter Care Teams Spring Assembler Relationship Specialty Start Date End Date Diaz Dalton MD [address] [place] [address] PCP - General Family Medicine 09/28/21 documented as of this encounter
--- OUTSIDE RECORDS SUMMARY | 2025-06-05 08:10 | XMS_ITS | Encounter Summary ---
[id number] [address] [place] [address] Care Team Providers Care Environmental Air Specialist Name Role Phone Diaz Dalton MD Primary Care Provider [phone] Encounter Details Date Type Department Care Team ([facility] st Contact Info) Description 03/13/2024 Telephone [facility] Pul[facility] Medicine [address] [address] Cristina Arrieta DO [address] [facility] [address] [place] [address] Social History Tobacco Use Types Packs/Day Years Used Date Smoking Tobacco: Never Smokeless Tobacco: Never Alcohol Use Standard Drinks/Week Comments Yes 0 (1 standard drink = 0.6 oz pur e alcohol) occasionally-once a month [facility] Utilities Answer Date Recorded In the past 12 months has [email or web address], gas, oil, or water [employer] threatened to shut off services in your [...] Date Recorded Total Score 4 06/05/2023 [facility] of Occupat ional [facility] - Occupational Stress Questionnaire Answer Date [...] an order was sent to her DME. Philosophy Instructor informed patient that a message would be [...] placed and emailed to Dahiana Davis with [facility]. Awaiting to hear back from [facility] to see if they will need anything else. documented in this encounter Plan of Treatment Upcoming Encounters Date Type Department Care Team (Late st Contact Info) Description 07/07/2025 9:30 AM EST Office Visit [facility] Card[facility] [address] [place] [address] Adriane Woods, ENVIRONMENTAL SERVICES FLOOR TECH-COMMISSIONING SPECIALIST [address] [place] [phone] Chasidy Lai PA-C [address] [place], [place] [phone] documented as of this encounter Visit Diagnoses Not on filedocumented in this encounter Additional Health Concerns Infection Onset Date Last Indicated Resolved Time COVID-19 Rule-Out 07/21/2024 07/21/2024 07/21/2024 6:08 PM EST Assessment Noted Time PHQ-9 Depression Total Score: 4 06/05/20 1:13 AM EDT documented as of this encounter Care Teams Environmental Air Specialist Relationship Specialty Start Date End Date Diaz Dalton MD PCP - General Family Medicine 10/27/24 documented as of this encounter
--- OUTSIDE RECORDS SUMMARY | 2025-06-05 08:10 | XMS_ITS | Encounter Summary ---
Author Organization [email or web address] Sys tem Address [id number] [address] [place] [address] Care Team Providers Care Early Childhood Education Coordinator Name Role Phone Diaz Dalton MD Primary Care Provider [phone] Encounter Details Date Type Department Care Team (Late st Contact Info) Description 02/19/2024 Telephone [facility]/Sleep [facility] [address] [facility] [address] [place] [address] Stella Reyes RN Social History Tobacco Use Types Packs/Day Years Used Date Smoking Tobacco: Never Smokeless Tobacco: Never Alcohol Use Standard Drinks/Week Comments Yes 0 (1 standard drink = 0.6 oz pur e alcohol) occasionally-once a month [facility] Utilities Answer Date Recorded In the [...] often do you attend chur ch or muslim services? Never 12/20/2023 Do you belong to any clubs o r organizations such as jewish groups, unions, fraternal or athletic groups, or [...] Answer Date Recorded Total Score 4 06/05/2023 [facility] of Occupat ional Health [...] Recorded Do you need help finding a [facility] and/or a training program? [...] Cardiology [address] [place] [phone] Adriane Woods, FRAME OPENER-CORPORATE CONTROLLER [address] [place] [phone] Chasidy Lai PA-C [address] [place] [address] documented as of this encounter Visit Diagnoses Not on filedocumented in this encounter Additional Health Concerns Infection Onset Date Last Indicated Resolved Time COVID-19 Rule-Out 07/21/2024 07/21/2024 07/21/2024 6:08 PM EST Assessment Noted Time PHQ-9 Depression Total Score: 4 06/05/20 23 1:13 AM EDT documented as of this encounter Care Teams Early Childhood Education Coordinator Relationship Specialty Start Date End Date Diaz Dalton MD PCP - General Family Medicine 10/27/24 documented as of this encounter
--- OUTSIDE RECORDS SUMMARY | 2025-06-05 08:10 | XMS_ITS | Encounter Summary ---
Author Organization [facility] [employer] Sys tem Address [id number] [address] [place] [address] Care Team Providers Care Sandblasting Supervisor Name Role Phone Diaz Dalton MD Primary Care Provider [phone] Encounter Details Date Type Department Care Team (Late st Contact Info) Description 02/19/2024 Telephone [facility]/Sleep [facility] [address] [facility] [address] [place] [address] Stella Reyes RN Social History Tobacco Use Types Packs/Day Years Used Date Smoking Tobacco: Never Smokeless Tobacco: Never Alcohol Use Standard Drinks/Week Comments Yes 0 (1 standard drink = 0.6 oz pur e alcohol) occasionally-once a month [facility] Utilities Answer Date Recorded In the [...] Answer Date Recorded Total Score 4 06/05/2023 [facility] of Occupat ional Health - [...] Recorded Do you need help finding a [facility] career [facility] and/or a training [...] Reyes RN - 02/19/2024 2:08 PM EDT Log Cut Off Sawyer spoke to patient and informed per Dr Arrieta, Home O2 reviewed. Patient qualifies for 2L oxygen with exertion and 3L with sleep. DME [facility]. Will need referral to sleep with appointment in [place] office. Patient scheduled 04-09-[address] Germain at 11:00 am at [place] office. Patient will need to complete ECHO with bubble study & CXR. Instructions and scheduling number provided. Recommend patient to start Trelegy 1 puff daily and rinse mouth out after use. May also stop by [place] office if samples. Script sent to [facility] in [place] Patient needs follow up appt in 2weeks [...] need referral to sleep with appointment in [place] office. Needs ECHO with bubble study, CXR. Please have her start Trelegy 1 puff daily and rinse mouth out after use. May also stop by [place] office if samples. Needs follow up appt in 2weeks with video visit please. Orders for above placed. documented in this encounter Plan of Treatment Upcoming Encounters Date Type Department Care Team (Late st Contact Info) Description 07/07/2025 9:30 AM EST Office Visit [facility] [address] [place] [address] Adriane Woods, JEWELRY MOLD MAKER-MANPOWER DEVELOPMENT SPECIALIST MANAGER [address] [place] [phone] Chasidy Lai PA-C [address] [place] [address] documented as of this encounter Visit Diagnoses Not on filedocumented in this encounter Additional Health Concerns Infection Onset Date Last Indicated Resolved Time COVID-19 Rule-Out 07/21/2024 07/21/2024 07/21/2024 6:08 PM EST Assessment Noted Time PHQ-9 Depression Total Score: 4 06/05/20 23 1:13 AM EDT documented as of this encounter Care Teams Sandblasting Supervisor Relationship Specialty Start Date End Date Diaz Dalton MD PCP - General Family Medicine 10/27/24 documented as of this encounter
--- OUTSIDE RECORDS SUMMARY | 2025-06-05 08:11 | XMS_ITS | Encounter Summary ---
Author Organization [facility] [employer] Sys tem Address [id number] [address] [place] [address] Care Team Providers Care Bronze Chaser Name Role Phone Diaz Dalton MD Primary Care Provider [phone] Encounter Details Date Type Department Care Team (Late st Contact Info) Description 05/07/2024 Telephone [facility] Pul[facility]/Sleep Medicine [address] [facility] [address] [place] [address] Stella Reyes RN Social History Tobacco Use Types Packs/Day Years Used Date Smoking Tobacco: Never Smokeless Tobacco: Never Alcohol Use Standard Drinks/Week Comments Yes 0 (1 standard drink = 0.6 oz pur e alcohol) occasionally-once a month [facility] Utilities Answer Date Recorded In the [...] often do you attend chur ch or temple services? Never 12/20/2023 Do you belong to any clubs o r organizations such as pentecostalism groups, unions, fraternal or athletic groups, or [...] Answer Date Recorded Total Score 4 06/05/2023 [facility] of Occupat ional Health [...] Recorded Do you need help finding a [facility] career center and/or a training [...] Cardiology [address] [place] [phone] Adriane Woods, SKEIN STRAIGHTENER-FORMAT PROOFREADER [address] [place] [address] Chasidy Lai PA-C [address] [place] [address] documented as of this encounter Visit Diagnoses Not on filedocumented in this encounter Additional Health Concerns Infection Onset Date Last Indicated Resolved Time COVID-19 Rule-Out 07/21/2024 07/21/2024 07/21/2024 6:08 PM EST Assessment Noted Time PHQ-9 Depression Total Score: 4 06/05/20 23 1:13 AM EDT documented as of this encounter Care Teams Bronze Chaser Relationship Specialty Start Date End Date Diaz Dalton MD PCP - General Family Medicine 10/27/24 documented as of this encounter
--- OUTSIDE RECORDS SUMMARY | 2025-06-05 08:11 | XMS_ITS | Encounter Summary ---
Author Organization [facility] Address [address] [place] [address] Care Team Providers Care Flight Service Agent Name Role Phone Diaz Dalton MD Primary Care Provider Encounter Details Date Type Department Care Team ([facility] Contact Info) Description 11/04/2024 Orders Only [facility] [address] [place] [address] Diaz Dalton MD [address] [place] [address] Social History Tobacco Use Types Packs/Day Years [...] Upcoming Encounters Date Type Department Care Team ([facility] Contact Info) Description 06/30/2025 10:10 AM EDT Office Visit [facility] [address] [place] [phone] Feliz Benz DO [address] [place], [place] [address] 07/10/2025 1:00 PM EST Office Visit [facility] [address] [place] [address] Barry Martinez, NURSE TRANSITIONAL [address] [place] [address] 08/19/2025 2:00 PM EST Office Visit [facility] [address] [place] [phone] Feliz Benz DO [address] [facility] [place] [address] documented as of this encounter Visit Diagnoses Not on filedocumented in this encounter Care Teams Flight Service Agent Relationship Specialty Start Date End Date Diaz Dalton MD PCP - General Family Medicine 09/25/23 documented as of this encounter
--- OUTSIDE RECORDS SUMMARY | 2025-06-05 08:11 | XMS_ITS | Encounter Summary ---
Author Organization [facility] Sys tem Address [facility]-[id number] [address] [place] [address] Care Team Providers Care Nitrocellulose Maker Name Role Phone Diaz Dalton MD Primary Care Provider [phone] Encounter Details Date Type Department Care Team (Late st Contact Info) Description 04/25/2024 Telephone [facility] Pul[facility]/Sleep Medicine [address] [facility] [address] [place] [address] Stella Reyes RN Social History Tobacco Use Types Packs/Day Years Used Date Smoking Tobacco: Never Smokeless Tobacco: Never Alcohol Use Standard Drinks/Week Comments Yes 0 (1 standard drink = 0.6 oz pur e alcohol) occasionally-once a month [facility] Utilities Answer Date Recorded In the [...] any clubs o r organizations such as anglican groups, unions, fraternal or athletic groups, or [...] Date Recorded Total Score 4 06/05/2023 [facility] of Occupat ional Health - Occupational [...] Recorded Do you need help finding a [facility] career center and/or a training [...] 04/25/2024 11:43 AM EDT Appt 05-16-24 at [place] office Clerical Aide Teacher spoke to patient and informed per Dr [...] Cardiology [address] [place] [address] Adriane Woods, FRAMING SPECIALIST-ELECTROENCEPHALOGRAPHIC TECHNICIAN [address] [place] [phone] Chasidy Lai PA-C [address] [place] [address] documented as of this encounter Visit Diagnoses Not on filedocumented in this encounter Additional Health Concerns Infection Onset Date Last Indicated Resolved Time COVID-19 Rule-Out 07/21/2024 07/21/2024 07/21/2024 6:08 PM EST Assessment Noted Time PHQ-9 Depression Total Score: 4 06/05/20 23 1:13 AM EDT documented as of this encounter Care Teams Nitrocellulose Maker Relationship Specialty Start Date End Date Diaz Dalton MD PCP - General Family Medicine 10/27/24 documented as of this encounter
--- OUTSIDE RECORDS SUMMARY | 2025-06-05 08:11 | XMS_ITS | Encounter Summary ---
Author Organization [facility] Address [address] [place] [address] Care Team Providers Care Chimney Repairer Name Role Phone Diaz Dalton MD Primary Care Provider [phone] Encounter Details Date Type Department Care Team (Late Contact Info) Description 12/12/2023 Abstract [facility] [address] [place] [address] Diaz Dalton MD [address] [place] [address] Social History Tobacco Use Types Packs/Day Years [...] Team ([facility] Contact Info) Description 06/30/2025 10:10 AM EDT Office Visit [facility] [place] [facility] [address] [facility] [place] [phone] Feliz Benz DO [address] [place], [place] [id number] 07/10/2025 1:00 PM EST Office Visit [facility] [address] [place] [address] Barry Martinez, DUPLIGRAPH OPERATOR [address] [place] [address] 08/19/2025 2:00 PM EST Office Visit [facility] [address] [place] [phone] Feliz Benz DO [address] [facility] [place] [address] documented as of this encounter Visit Diagnoses Not on filedocumented in this encounter Care Teams Chimney Repairer Relationship Specialty Start Date End Date Diaz Dalton MD PCP - General Family Medicine 09/25/23 documented as of this encounter
--- OUTSIDE RECORDS SUMMARY | 2025-06-05 08:12 | XMS_ITS | Encounter Summary ---
Author Organization [facility] Address [address] [place] [address] Care Team Providers Care Repair Miller Name Role Phone Diaz Dalton MD Primary Care Provider [phone] Reason for Visit * Reason Comments Med Refill Encounter Details Date Type Department Care Team ([facility] Contact Info) Description 11/12/2024 Refill [facility] [address] [place] [address] Diaz Dalton MD [address] [facility] [place] [address] Carpal tunnel syndrome of left wrist; Panic [...] encounter Miscellaneous Notes * Telephone Encounter - Tory Strong MA - 11/13/2024 8:04 AM EDT MEDICATION SENT TO [facility] documented in this encounter Plan of Treatment Upcoming Encounters Date Type Department Care Team (Late st Contact Info) Description 06/30/2025 10:10 AM EDT Office Visit [facility] [address] [facility] [place] [phone] Feliz Benz, DO [address] [place] [address] 07/10/2025 1:00 PM EST Office Visit [facility] [address] [facility] [place] [address] Barry Martinez, WEB MARKETING INTERN [address] [facility] [address] [place], [place] [id number] 08/19/2025 2:00 PM EST Office Visit [facility] [address] [facility] [place] [phone] Feliz Benz, DO [address] [facility] [place] [address] documented as of this encounter Visit Diagnoses Diagnosis Carpal tunnel syndrome of left wrist Panic disorder without agoraphobia documented in this encounter Care Teams Repair Miller Relationship Specialty Start Date End Date Diaz Dalton MD PCP - General Family Medicine 09/25/23 documented as of this encounter
--- OUTSIDE RECORDS SUMMARY | 2025-06-05 08:12 | XMS_ITS | Encounter Summary ---
Author Organization [facility] Address [address] [place] [address] Care Team Providers Care Test And Research Reactor Operator Name Role Phone Diaz Dalton MD Primary Care Provider Encounter Details Date Type Department Care Team ([facility] Contact Info) Description 10/24/2023 External Result Encounter [facility] [address] [place] [address] Diaz Dalton MD [address] [place] [address] Social History Tobacco Use Types Packs/Day Years [...] Upcoming Encounters Date Type Department Care Team ([facility] Contact Info) Description 06/30/2025 10:10 AM EDT Office Visit [facility] [place] OBNATALIE [address] [facility] [place] [place] [address] Feliz Benz DO [address] [place], [place] [id number] 07/10/2025 1:00 PM EST Office Visit [facility] [place] [facility] [address] [place] [address] Barry Martinez, WEBBING WEAVER [address] [place], [place] [phone] 08/19/2025 2:00 PM EST Office Visit [facility] [place] [address] [place] [phone] Feliz Benz DO [address] [facility] [place] [address] documented as of this encounter Procedures [...] AVERAGE GLUCOSE 324 mg/dL [facility] Comment:PERFORMED AT [facility] [address],[place] [address] 05/28/2024 11:0 6 AM EDT 05/28/2024 11:07 AM EDT us Diaz Dalton MD LAB BLOOD ORDERABLES Final Resul t [facility] * (ABNORMAL) URETHRITIS/DISCHARGE PLUS VAGINITIS (HTRX) (03/19/2024 12:00 AM EDT) [facility] ATOPOBIUM VAGINAE 0.000 19.961 - 24.689 ppm 03/20/2024 7:03 AM EDT [facility] ATOPOBIUM VAGINAE Not Detected 19.961 - 24.689 ppm 03/20/2024 7:03 AM EDT [facility] BVAB 2,3 (BACTERIAL VAGINOSIS ASSOCIATED BACTERIA 2, 3); MOBILUNCUS SPP 0.000 19.961 - 24.689 ppm 03/20/2024 7:03 AM EDT [facility] BVAB 2,3 (BACTERIAL VAGINOSIS ASSOCIATED BACTERIA 2, 3); MOBILUNCUS SPP Not Detected 19.961 - 24.689 ppm 03/20/2024 7:03 AM EDT [facility] SHENG ALBICANS, PARAPSILOSIS, TROPICALIS 0.000 19.961 - 30.770 ppm 03/20/2024 7:03 AM EDT [facility] SHENG ALBICANS, PARAPSILOSIS, TROPICALIS Not Detected 19.961 - 30.770 ppm 03/20/2024 7:03 AM EDT [facility] SHENG GLABRATA 21.657(A) 23.000 - 32.138 ppm 03/20/2024 7:03 AM EDT [facility] SHENG GLABRATA Detected(A) 23.000 - 32.138 ppm 03/20/2024 7:03 AM EDT [facility] SHENG KRUSEI 0.000 23.000 - 32.271 ppm 03/20/2024 7:03 AM EDT [facility] SHENG KRUSEI Not Detected 23.000 - 32.271 ppm 03/20/2024 7:03 AM EDT [facility] CHLAMYDIA TRACHOMATIS 0.000 23.000 - 31.467 ppm 03/20/2024 7:03 AM EDT [facility] CHLAMYDIA TRACHOMATIS Not Detected 23.000 - 31.467 ppm 03/20/2024 7:03 AM EDT [facility] GARDNERELLA VAGINALIS 0.000 19.961 - 24.689 ppm 03/20/2024 7:03 AM EDT [facility] GARDNERELLA VAGINALIS Not Detected 19.961 - 24.689 ppm 03/20/2024 7:03 AM EDT [facility] MEGASPHAERA (TYPES 1, 2) 0.000 19.961 - 24.689 ppm 03/20/2024 7:03 AM EDT [facility] MEGASPHAERA (TYPES 1, 2) Not Detected 19.961 - 24.689 ppm 03/20/2024 7:03 AM EDT [facility] NEISSERIA GONORRHOEAE 0.000 23.000 - 32.117 ppm 03/20/2024 7:03 AM EDT [facility] NEISSERIA GONORRHOEAE Not Detected 23.000 - 32.117 ppm 03/20/2024 7:03 AM EDT [facility] TRICHOMONAS VAGINALIS 0.000 23.000 - 32.119 ppm 03/20/2024 7:03 AM EDT [facility] TRICHOMONAS VAGINALIS Not Detected 23.000 - 32.119 ppm 03/20/2024 7:03 AM EDT [facility] MYCOPLASMA GENITALIUM 0.000 19.961 - 24.689 ppm 03/20/2024 7:03 AM EDT [facility] MYCOPLASMA GENITALIUM Not Detected 19.961 - 24.689 ppm 03/20/2024 7:03 AM EDT [facility] Tissue 03/19/2024 03/20/2024 2:1 7 AM EDT Georgette KAPLAN LAB BLOOD ORDERABLES Final Resul t Performing Organization Address City/[facility]/ZIP Co de Phone Number [facility] [address] [place] [address] * (ABNORMAL) Hemoglobin A1c (02/13/2024 8:35 AM EDT) HEMOGLOBIN A1C 9.6(H) 4.4 - 5.6 % [facility] Comment: NOTE ADA Guidelines Result HgbA1c Normal : less than 5.7 % Prediabetes : 5.7 % to 6.4 % Diabetes : > 6.4 % Use with caution in patients with abnormal hemoglobin variants as the half-life of red blood cells and in vivo glycation rates are affected. AVERAGE GLUCOSE 229 mg/dL [facility] Comment:PERFORMED AT [facility] [address],[place] [address] 02/13/2024 8:35 AM EDT 02/13/2024 8:36 AM EDT Diaz Dalton MD LAB BLOOD ORDERABLES Final Resul t [facility] * US pelvis transvaginal (10/26/2023 4:19 PM EST) Anatomical Region Laterality Modality Pelvis Ultrasound 10/26/2023 4:19 PM EST Narrative 10/26/2023 4:17 PM EST THIS EXAM WAS PERFORMED AT [facility] CLINICAL INFORMATION: Amenorrhea COMPARISON: 08/09/2021. FINDINGS: Limited [...] - 10/26/2023 THIS EXAM WAS PERFORMED AT [facility] CLINICAL INFORMATION: Amenorrhea COMPARISON: 08/09/2021. FINDINGS: Limited [...] 10/26/2023 4:17 PM us Feliz Demar DO IMG US PROCEDURES Final Result * Estrogens, fractionated (10/26/2023 10:26 AM EST) ESTRONE 35.4 pg/mL [facility] Comment: NOTE INTERPRETIVE INFORMATION: Estrone by Mastic Sprayer For a complete set of all established reference intervals, refer to [facility]/Tests/Pub/[id number]. This test was developed and its performance characteristics determined by [facility]. It has not been cleared or approved by the US Food and Drug Administration. This test was performed in a CLIA certified laboratory and is intended for clinical purposes. ESTRADIOL 11.5 pg/mL [facility] Comment: NOTE REFERENCE INTERVAL: Estradiol by Mastic Sprayer For a complete set of all established reference intervals, refer to [facility]/Tests/Pub/[id number]. This test was developed and its performance characteristics determined by [facility]. It has not been cleared or approved [...] of all established reference intervals, refer to [facility]/Tests/Pub/[id number]. Performed By: [facility] [address] [place] [address] Director [employer]: Alexys Gutierres MD, PhD CLIA Number: [id number] PERFORMED AT [address] [place] [address] 10/26/2023 10:2 6 AM EST 10/26/2023 10:27 AM EST Feliz Demar DO LAB BLOOD ORDERABLES Final Resul t Performing Organization Address [facility] Co de Phone Number [facility] * Luteinizing hormone (10/26/2023 10:26 AM EST) LUTEINIZING HORMONE 18.4 mIU/mL [facility] Comment: NORMAL FEMALE Follicular 2.1-10.9 mIU/mL Mid Cycle 19.2-103 mIU/mL Luteal 1.2-12.9 mIU/mL Post Katarzyna 10.9-58.6 mIU/mL PERFORMED AT [address],[place] [address] 10/26/2023 10:2 6 AM EST 10/26/2023 10:27 AM EST Feliz Demar DO LAB BLOOD ORDERABLES Final Resul t Performing Organization Address [facility] de Phone Number [facility] * Follicle stimulating hormone (10/26/2023 10:26 AM EST) FOLLICLE STIM HORMONE 28.5 mIU/mL [facility] Comment: NORMAL FEMALE Luteal 1.8-5.1 mIU/mL Follicular 3.8-8.8 mIU/mL Mid Cycle 4.5-22.5 mIU/mL Post Katarzyna 16.7-113.6 mIU/mL PERFORMED AT [address],[place] [address] 10/26/2023 10:2 6 AM EST 10/26/2023 10:27 AM EST Feliz Demar DO LAB BLOOD ORDERABLES Final Resul t Performing Organization Address [facility] Co de Phone Number [facility] * Progesterone (10/26/2023 10:26 AM EST) [facility] Signature PROGESTERONE 0.5 ng/mL [facility] Comment: FEMALES: 1st Tri: 4.7-50.7 ng/ml 2nd Tri: 19.4-45.3 ng/ml MENSTRUATING FEMALES: Follicular: 0.3-1.5 ng/ml Mid Luteal: 5.2-18.6 ng/ml Post Entriken: <0.1-0.8 ng/ml PERFORMED AT [facility] [address],[place] [address] 10/26/2023 10:2 6 AM EST 10/26/2023 10:27 AM EST us Feliz Benz DO LAB BLOOD ORDERABLES Final Resul t [facility] * PET/CT skull base to mid thigh (10/24/2023 2:24 PM EST) Anatomical Region Laterality Modality Body Computed Tomogra phy 10/24/2023 2:24 PM EST Narrative 10/24/2023 2:23 PM EST THIS EXAM WAS PERFORMED AT [facility] PET CT SKULL TO THIGH REASON FOR [...] NECK: Normal physiologic activity in the imaged STONE DRILLER HELPER. Contrast evaluation of the face/brain due to [...] 10/24/2023 2:23 PM Procedure Note Radiology, Radiologist, - 10/24/2023 THIS EXAM WAS PERFORMED AT [facility] PET CT SKULL TO THIGH REASON FOR EXAM: Cavitary lesion of lung COMPARISON: None PROCEDURE: After a suitable fast, the patient was injected with 17.8 mCi of I-57-yprwozwbmklzsfntgb (FDG) intravenously, followed by whole body images fromthe base of the skull to the mid-thigh on the dedicated PET/CT system at60 minutes post tracer injection. The data volume is reformatted into transverse, coronal and sagittalplanes, as well as 3-dimensional volume-rendered (MIP) display. Blood glucose: 163 mg/dl. Mediastinal blood pool activity (SUV): 1.4 Liver activity: 2.5 FINDINGS: NECK: Normal physiologic activity in the imaged STONE DRILLER HELPER. Contrast evaluation of the face/brain due to [...] on filedocumented in this encounter Care Teams Test And Research Reactor Operator Relationship Specialty Start Date End Date Diaz Dalton MD PCP - General Family Medicine 09/25/23 documented as of this encounter
--- OUTSIDE RECORDS SUMMARY | 2025-06-05 08:12 | XMS_ITS | Encounter Summary ---
Author Organization [facility] Address [address] [place] [address] Care Team Providers Care Freight Brakeman Name Role Phone Diaz Dalton MD Primary Care Provider Encounter Details Date Type Department Care Team ([facility] Contact Info) Description 01/11/2024 Abstract [facility] [address] [place] [address] Diaz Dalton MD [address] [place] [address] Social History Tobacco Use Types Packs/Day Years [...] Care Team ([facility] [address] Contact Info) Description 06/30/2025 10:10 AM EDT Office Visit NOM[facility] [place] OBNATALIE [address] [place] [phone] Feliz Benz DO [address] [place], [place] [phone] 07/10/2025 1:00 PM EST Office Visit [facility] [address] [place] [address] Barry Martinez, DIETETIC TECHNICIAN REGISTERED [address] [place] [address] 08/19/2025 2:00 PM EST Office Visit CHELSEY CARRERA [address] [place] [phone] Feliz Benz DO [address] [facility] [place] [address] documented as of this encounter Visit Diagnoses Not on filedocumented in this encounter Care Teams Freight Brakeman Relationship Specialty Start Date End Date Diaz Dalton MD PCP - General Family Medicine 09/25/23 documented as of this encounter
--- OUTSIDE RECORDS SUMMARY | 2025-06-05 08:12 | XMS_ITS | Encounter Summary ---
Author Organization [facility] Address [address] [place] [address] Care Team Providers Care Weight Calculator Name Role Phone Diaz Dalton MD Primary Care Provider [phone] Reason for Visit * Reason Comments Med Refill Encounter Details Date Type Department Care Team ([facility] Contact Info) Description 10/18/2023 Refill [facility] [address] [place] [address] Diaz Dalton MD [address] [facility] [place] [address] Social History Tobacco Use Types Packs/Day Years [...] Upcoming Encounters Date Type Department Care Team ([facility] Contact Info) Description 06/30/2025 10:10 AM EDT Office Visit NOM[facility] [place] OBGYRiver [address] [facility] [place] [address] Feliz Benz DO [address] [facility] [address] 07/10/2025 1:00 PM EST Office Visit [facility] [address] [place] [address] Barry Martinez, DELI CUTTER SLICER [address] [place], [place] [phone] 08/19/2025 2:00 PM EST Office Visit [facility] [place] OBGYN [address] [place] [phone] Feliz Benz DO [address] [address] documented as of this encounter Visit Diagnoses Not on filedocumented in this encounter Care Teams Weight Calculator Relationship Specialty Start Date End Date Diaz Dalton MD PCP - General Family Medicine 09/25/23 documented as of this encounter
--- OUTSIDE RECORDS SUMMARY | 2025-06-05 08:12 | XMS_ITS | Encounter Summary ---
Author Organization [facility] Address [address] [place] [address] Care Team Providers Care Photo Tube Assembler Name Role Phone Diaz Dalton MD Primary Care Provider [phone] Encounter Details Date Type Department Care Team ([facility] Contact Info) Description 01/23/2025 Abstract [facility] [address] [place] [address] Diaz Dalton MD [address] [place] [address] Social History Tobacco Use Types Packs/Day Years [...] Upcoming Encounters Date Type Department Care Team ([facility] Contact Info) Description 06/30/2025 10:10 AM EDT Office Visit NOM[facility] [place] OBNATALIE [address] [facility] [place] [phone] Feliz Benz DO [address] [place], [place] [address] 07/10/2025 1:00 PM EST Office Visit [facility] [address] [place] [address] Barry Martinez, DIRECTOR OF COMMUNITY SERVICES [address] [place] [address] 08/19/2025 2:00 PM EST Office Visit CHELSEY CARRERA [address] [place] [phone] Feliz Benz DO [address] [facility] [place] [address] documented as of this encounter Visit Diagnoses Not on filedocumented in this encounter Care Teams Photo Tube Assembler Relationship Specialty Start Date End Date Diaz Dalton MD PCP - General Family Medicine 09/25/23 documented as of this encounter
--- OUTSIDE RECORDS SUMMARY | 2025-06-05 08:12 | XMS_ITS | Encounter Summary ---
Author Organization [facility] Address [address] [place] [address] Care Team Providers Care Print Production Associate Name Role Phone Diaz Dalton MD Primary Care Provider [phone] Encounter Details Date Type Department Care Team ([facility] Contact Info) Description 10/16/2024 Orders Only [facility] [address] [place] [address] Diaz Dalton MD [address] [place] [address] Social History Tobacco Use Types Packs/Day Years [...] Upcoming Encounters Date Type Department Care Team ([facility] Contact Info) Description 06/30/2025 10:10 AM EDT Office Visit NOMGer CARRERA [address] [facility] [place] [phone] Feliz Benz DO [address] [place], [place] [phone] 07/10/2025 1:00 PM EST Office Visit [facility] [address] [facility] [address] Barry Martinez, MULTICULTURAL MANAGER [address] [place] [address] 08/19/2025 2:00 PM EST Office Visit CHELSEY [place] OBGYN [address] [place] [phone] Feliz Benz DO [address] [facility] [place] [address] documented as of this encounter Visit Diagnoses Not on filedocumented in this encounter Care Teams Print Production Associate Relationship Specialty Start Date End Date Diaz Dalton MD PCP - General Family Medicine 09/25/23 documented as of this encounter
--- OUTSIDE RECORDS SUMMARY | 2025-06-05 08:13 | XMS_ITS | Encounter Summary ---
Author Organization [facility] Address [address] [place] [address] Care Team Providers Care Assistant Professor Of Radiology Name Role Phone Diaz Dalton MD Primary Care Provider Encounter Details Date Type Department Care Team (Late Contact Info) Description 12/09/2024 Orders Only [facility] [address] [facility] [place] [place] [address] Lotus Diego MD [address] [facility] [place], [place] [phone] Social History Tobacco Use Types Packs/Day Years [...] EDT Office Visit [facility] [place] OBGYN [address] [facility] [place] [address] Feliz Benz DO [address] [facility] [place] [address] 07/10/2025 1:00 PM EST Office Visit [facility] [address] [place] [address] Barry Martinez, PATIENT CENTERED CARE SPECIALIST [address] [place], [place] [phone] 08/19/2025 2:00 PM EST Office Visit [facility]SEY [place] OBGYN [address] [place] [address] Feliz Benz DO [address] [facility] [place] [address] documented as of this encounter Procedures [...] on filedocumented in this encounter Care Teams Assistant Professor Of Radiology Relationship Specialty Start Date End Date Diaz Dalton MD PCP - General Family Medicine 09/25/23 documented as of this encounter
--- OUTSIDE RECORDS SUMMARY | 2025-06-05 08:13 | XMS_ITS | Encounter Summary ---
Author Organization [email or web address] Address [id number] [place] [address] Care Team Providers Care Combination Machine Tool Operator Name Role Phone Diaz Dalton MD Primary Care Provider [phone] Reason for Visit * Reason Onset Date Comments s/p C 06/26/2024 Encounter Details Date Type Department Care Team ([facility] Contact Info) Description 06/26/2024 Telephone [facility] Fleet Manager Sign In [address] [place] [phone] Christine Robins, SECURITY PROFESSIONAL-TECHNICAL REP [address] [place] [address] s/p [facility] Social History Tobacco Use Types Packs/Day Years Used Date Smoking Tobacco: Never Smokeless Tobacco: Never Alcohol Use Standard Drinks/Week Comments Yes 0 (1 standard drink = 0.6 oz pur e alcohol) occasionally-once a month [facility] Utilities Answer Date Recorded In the past 12 months has [employer], gas, oil, or water [employer] threatened to shut off services in your [...] week 12/20/2023 How often do you attend [facility] or taoist services? Never 12/20/2023 Do you belong to [...] Recorded Do you need help finding a [facility] career [facility] and/or a training program? [...] to follow-up with me. Follow-up in the [place] office. * Telephone Encounter - Michaela Hernández - 06/26/2024 10:38 AM EDT 06/27 Competed - scheduled in [facility] documented in this encounter Plan of Treatment Upcoming Encounters Date Type Department Care Team (Late st Contact Info) Description 07/07/2025 9:30 AM EST Office Visit [facility] [address] [place] [address] Adriane Woods APRN-TECHNICAL REP [address] [place] [address] Chasidy Lai PA-C [address] [place] [address] documented as of this encounter Visit Diagnoses Not on filedocumented in this encounter Additional Health Concerns Infection Onset Date Last Indicated Resolved Time COVID-19 Rule-Out 07/21/2024 07/21/2024 07/21/2024 6:08 PM EST Assessment Noted Time PHQ-9 Depression Total Score: 4 06/05/20 23 1:13 AM EDT documented as of this encounter Care Teams Combination Machine Tool Operator Relationship Specialty Start Date End Date Diaz Dalton MD PCP - General Family Medicine 10/27/24 documented as of this encounter
--- OUTSIDE RECORDS SUMMARY | 2025-06-05 08:13 | XMS_ITS | Encounter Summary ---
Author Organization [facility] Address [address] [place] [address] Care Team Providers Care Environmental Service Aide Name Role Phone Diaz Dalton MD Primary Care Provider [phone] Encounter Details Date Type Department Care Team (Late Contact Info) Description 12/05/2024 Orders Only [facility] [address] [facility] [place] [place] [address] Lotus Diego MD [address] [facility] [address] [place], [place] [phone] Social History Tobacco Use Types Packs/Day Years [...] EDT Office Visit [facility] [place] OBG[facility] [address] [facility] [place] [address] Feliz Benz DO [address] [facility] [place] [address] 07/10/2025 1:00 PM EST Office Visit [facility] [address] [place] [address] Barry Martinez, LINUX CONSULTANT [address] [place], [place] [phone] 08/19/2025 2:00 PM EST Office Visit CHELSEY [place] OBGYN [address] [place] [address] Feliz Benz DO [address] [facility] [place] [address] documented as of this encounter Procedures [...] on filedocumented in this encounter Care Teams Environmental Service Aide Relationship Specialty Start Date End Date Diaz Dalton MD PCP - General Family Medicine 09/25/23 documented as of this encounter
--- OUTSIDE RECORDS SUMMARY | 2025-06-05 08:14 | XMS_ITS | Encounter Summary ---
Author Organization [facility] Address [address] [place] [address] Care Team Providers Care Workers Compensation Adjuster Name Role Phone Diaz Dalton MD Primary Care Provider [phone] Encounter Details Date Type Department Care Team (Late Contact Info) Description 04/02/2024 Clinisync Result Encounter NOMS External Department Unsolicited Georgette Guerra PA [address] [facility] [address] [place], [id number] Social History Tobacco Use Types Packs/Day Years [...] Encounters Date Type Department Care Team ([facility] Contact Info) Description 06/30/2025 10:10 AM EDT Office Visit N[facility]Ger [place] OBNATALIE [address] [facility] [place] [phone] Feliz Benz DO [address] [facility] [place] [address] 07/10/2025 1:00 PM EST Office Visit [facility] [address] Barry Martinez, [place] [address] [place], [place] [address] 08/19/2025 2:00 PM EST Office Visit [facility] [address] [facility] [place] [address] Feliz Benz DO [address] [facility] [address] [place] [place], [place] [address] documented as of this encounter Procedures Procedure Name Priority Date/Time Associated Diagnosis Comments CT ABDOMEN/PELVIS WO CONT 04/02/2024 6:38 AM EDT documented in this encounter Results * CT ABDOMEN/PELVIS WO CONT (04/02/2024 6:38 AM EDT) Anatomical Region Laterality Modality Radiographic Bisi ging 04/02/2024 6:38 AM EDT Narrative 04/02/2024 6:40 AM EDT The [address] [address] [address] Scan Report Signed Patient: CARISSA LOZADA MR#: [id number] : 1980 Acct:[id number] Age/Sex: 43 / F ADM Date: 04/01/24 Loc: CT Attending Dr: Georgette Guerra Ordering Physician: Georgette Guerra Date of Service: 04/01/24 Procedure(s): CT abdomen pelvis wo con Accession Number(s): [id number] cc: Diaz Dalton M.D. The [address] [address] Patient Name: CARISSA LOZADA MRN: [id number] date: 1980 Sex: F Assigned Patient Location: CT Current Patient Location: Accession/Order Number: [id number] Exam Date: 04/01/2024 12:24 Report Date: 04/02/2024 [...] Dictated By: Kamron Gunn M.D. Signed By: 04/02/24 0640 DD/ 0638 TD/TT: Disability Aide: Procedure Note Radiology, Radiologist, MD - 04/02/2024 [place] [address] CT Scan Report Signed Patient: CARISSA LOZADA RMR#: [id number] : 1980Acct:[id number] Age/Sex: 43 / FADM Date: 04/01/24 Loc: CT Attending Dr: Georgette Guerra Ordering Physician: Georgette [place] Date of Service: 04/01/24 Procedure(s): CT abdomen pelvis wo con Accession Number(s): [id number] cc: Diaz Dalton M.D. [address] [address] Patient Name: CARISSA LOZADA MRN: [id number] date: 1980 Sex: F Assigned Patient Location: CT Current Patient Location: Accession/Order Number: [id number] Exam Date: 04/01/2024 12:24 Report Date: 04/02/2024 [...] By: Kamron Gunn M.D. Signed By:04/02/2440 DD/ TD/TT: Disability Aide: Georgette KAPLAN IMG XR PROCEDURES Final Result documented in this encounter Visit Diagnoses Not on filedocumented in this encounter Care Teams Workers Compensation Adjuster Relationship Specialty Start Date End Date Diaz Dalton MD PCP - General Family Medicine 09/25/23 documented as of this encounter
--- OUTSIDE RECORDS SUMMARY | 2025-06-05 08:14 | XMS_ITS | Encounter Summary ---
Author Organization [facility] Address [address] [place] [place] [address] Care Team Providers Care Staff Toxicologist Name Role Phone Diaz Dalton MD Primary Care Provider [phone] Encounter Details Date Type Department Care Team ([facility] Contact Info) Description 04/03/2024 Clinisync Result Encounter [...] Care Team ([facility] Contact Info) Description 06/30/2025 10:10 AM EDT Office Visit [facility] [place] [facility] [address] [facility] [place] [phone] Feliz Benz DO [address] [facility] [address] Adan [place], [place] [address] 07/10/2025 1:00 PM EST Office Visit [facility] [address] [place] [address] Barry Martinez, OPERATING ROOM ORDERLY [address] [place] [address] 08/19/2025 2:00 PM EST Office Visit CHELSEY DALYGYRiver [address] [facility] [place] [address] Feliz Benz DO [address] [facility] [place] [address] documented as of this encounter Procedures Procedure Name Priority Date/Time Associated Diagnosis Comments US PELVIS W/ TRANSVAGINAL 04/03/2024 8:29 AM EDT documented in this encounter Results * US PELVIS W/ TRANSVAGINAL (04/03/2024 8:29 AM EDT) Anatomical Region Laterality Modality Other 04/03/2024 8:29 AM EDT Narrative 04/03/2024 8:31 AM EDT The [address] [address] Ultrasound Report Signed Patient: CARISSA LOZADA MR#: [id number] : 1980 Acct:[id number] Age/Sex: 43 / F ADM Date: 04/02/24 Loc: [facility] Attending Dr: Georgette Guerra Ordering Physician: Georgette Guerra Date of Service: 04/02/24 Procedure(s): US pelvis w/ transvaginal Accession Number(s): [id number] cc: Georgette Guerra; Diaz Dalton M.D. The [address] [id number] Patient Name: CARISSA LOZADA MRN: [id number] date: 1980 Sex: F Assigned Patient Location: [facility] Current Patient Location: Accession/Order Number: [id number] Exam Date: 04/02/2024 11:53 Report Date: 04/03/2024 [...] M.D. Signed By: 04/03/24830 DD/ 8 TD/TT: Svp Operations: Procedure Note Radiology, Radiologist, - 04/03/2024 [place] [address] Ultrasound Report Signed Patient: CARISSA LOZADA RMR#: [id number] : 1980Acct:[id number] Age/Sex: 43 / FADM Date: 04/02/24 Loc: [facility] Attending Dr: Georgette Guerra Ordering Physician: Georgette Guerra Date of Service: 04/02/24 Procedure(s): US pelvis w/ transvaginal Accession Number(s): [id number] cc: Georgette Guerra; Diaz Dalton M.D. The [place] [id number] Patient Name: CARISSA LOZADA MRN: [id number] date: 1980 Sex: F Assigned Patient Location: [facility] Current Patient Location: Accession/Order Number: [id number] Exam Date: 04/02/2024 11:53 Report Date: 04/03/2024 [...] Soriano M.D. Signed By:04/03/24830 DD/ 8 TD/TT: Svp Operations: us Generic External Data Provider [facility] Final Result documented in this encounter Visit Diagnoses Not on filedocumented in this encounter Care Teams Staff Toxicologist Relationship Specialty Start Date End Date Diaz Dalton MD PCP - General Family Medicine 09/25/23 documented as of this encounter
--- OUTSIDE RECORDS SUMMARY | 2025-06-05 08:14 | XMS_ITS | Encounter Summary ---
Author Organization [facility] Address [address] [place] [address] Care Team Providers Care Industrial Pharmacist Name Role Phone Diaz Dalton MD Primary Care Provider [phone] Encounter Details Date Type Department Care Team ([facility] Contact Info) Description 04/18/2024 Orders Only [facility] [address] [place] [address] Gary Miller, [address] [facility] [address] [place] [address] Social History Tobacco Use Types Packs/Day Years [...] Upcoming Encounters Date Type Department Care Team ([facility] Contact Info) Description 06/30/2025 10:10 AM EDT Office Visit [facility] [place] [facility] [address] [facility] [place] [address] Feliz Benz DO [address] [place], [place] [address] 07/10/2025 1:00 PM EST Office Visit [facility] [address] [place] [address] Barry Martinez, [place] [address] [place], [place] [address] 08/19/2025 2:00 PM EST Office Visit [facility] [place] [facility] [address] [facility] [address] Feliz Benz DO [address] [facility] [place] [address] documented as of this encounter Procedures Procedure Name Priority Date/Time Associated Diagnosis Comments ELECTROCARDIOGRAM REPORT Routine 024 8:26 AM EDT documented in this encounter Results * Electrocardiogram Report (04/16/2024 8:26 AM EDT) Gary Miller DO IN CLINIC/BEDSIDE ORDERABL ES Final Result documented in this encounter Visit Diagnoses Not on filedocumented in this encounter Care Teams Industrial Pharmacist Relationship Specialty Start Date End Date Diaz Dalton MD PCP - General Family Medicine 09/25/23 documented as of this encounter
--- OUTSIDE RECORDS SUMMARY | 2025-06-05 08:14 | XMS_ITS | Encounter Summary ---
Author Organization [facility] Address [id number] [address] [place] [address] Care Team Providers Care Training And Documentation Specialist Name Role Phone Diaz Dalton MD Primary Care Provider [phone] Reason for Visit * Reason Comments Med Refill Encounter Details Date Type Department Care Team (Late st Contact Info) Description 07/12/2024 Refill [facility] [address] [place] [address] Hafsa Whitman, SUPERINTENDENT MAINTENA[employer]CE [employer]-DR[employer] CLIPPER TENDER [address] [place] [address] Med Refill Social History Tobacco Use Types Packs/Day Years Used Date Smoking Tobacco: Never Smokeless Tobacco: Never Alcohol Use Standard Drinks/Week Comments Yes 0 (1 standard drink = 0.6 oz pur e alcohol) occasionally-once a month [facility] Utilities Answer Date Recorded In the past 12 months has Meetmeals, gas, oil, or water [employer] threatened to shut off services in your [...] often do you attend chur ch or tenriism services? Never 12/20/2023 Do you belong to any clubs o r organizations such as uatsdin groups, unions, fraternal [...] Answer Date Recorded Total Score 4 06/05/2023 [facility] - [...] Cardiology [address] [place] [address] Adriane Woods, SUPERINTENDENT MA[employer]TENA[employer]CE [employer] CLIPPER TENDER [address] [place] [address] Chasidy Lai PA-C [address] [place], [place] [address] documented as of this encounter Visit Diagnoses Not on filedocumented in this encounter Additional Health Concerns Infection Onset Date Last Indicated Resolved Time COVID-19 Rule-Out 07/21/2024 07/21/2024 07/21/2024 6:08 PM EST Assessment Noted Time PHQ-9 Depression Total Score: 4 06/05/20 23 1:13 AM EDT documented as of this encounter Care Teams Training And Documentation Specialist Relationship Specialty Start Date End Date Diaz Dalton MD PCP - General Family Medicine 10/27/24 documented as of this encounter
--- OUTSIDE RECORDS SUMMARY | 2025-06-05 08:14 | XMS_ITS | Encounter Summary ---
Author Organization [facility] Address [address] [place] [address] Care Team Providers Care Library Director Name Role Phone Diaz Dalton MD Primary Care Provider [phone] Encounter Details Date Type Department Care Team ([facility] Contact Info) Description 03/05/2025 Results Follow-Up [facility] [address] [place] [address] Cholo Strong PA [address] [place] [address] MR KNEE LT WO CON [...] Upcoming Encounters Date Type Department Care Team ([facility] Contact Info) Description 06/30/2025 10:10 AM EDT Office Visit [facility] [place] [facility] [address] [facility] [place] [phone] Feliz Benz DO [address] [facility] [place] [address] 07/10/2025 1:00 PM EST Office Visit [facility] [place] [facility] [address] [place] [address] Barry Martinez, FIELD ATTENDANT [address] [place], [place] [address] 08/19/2025 2:00 PM EST Office Visit CHELSEY CARRERA [address] [place] [address] Feliz Benz DO [address] [facility] [place] [address] documented as of this encounter Visit Diagnoses Not on filedocumented in this encounter Care Teams Library Director Relationship Specialty Start Date End Date Diaz Dalton MD PCP - General Family Medicine 09/25/23 documented as of this encounter
--- OUTSIDE RECORDS SUMMARY | 2025-06-05 08:15 | XMS_ITS | Encounter Summary ---
Author Organization [facility] Address [address] [place] [address] Care Team Providers Care Soapstoner Name Role Phone Diaz Dalton MD Primary Care Provider [phone] Encounter Details Date Type Department Care Team (Late Contact Info) Description 03/19/2024 Orders Only CHELSEY CARRERA [address] [facility] [place] [address] Georgette Dodd PA [address] [facility] [address] [place], [facility] Social History Tobacco Use Types Packs/Day Years [...] AM EDT Office Visit NOMGer CARRERA [address] [facility] [place] [address] Feliz Benz DO [address] [facility] [address] [place], [facility] 07/10/2025 1:00 PM EST Office Visit [facility] [place] [facility] [address] [facility] [address] Barry Martinez, [place] [address] [place], [place] [address] 08/19/2025 2:00 PM EST Office Visit CHELSEY CARRERA [address] [facility] [place] [address] Feliz Benz DO [address] [facility] [place] [address] documented as of this encounter Visit Diagnoses Not on filedocumented in this encounter Care Teams Soapstoner Relationship Specialty Start Date End Date Diaz Dalton MD PCP - General Family Medicine 09/25/23 documented as of this encounter
--- OUTSIDE RECORDS SUMMARY | 2025-06-05 08:15 | XMS_ITS | Encounter Summary ---
Author Organization [facility] Address [address] [place] [address] Care Team Providers Care Open Shank Coverer Name Role Phone Diaz Dalton MD Primary Care Provider [phone] Encounter Details Date Type Department Care Team (Late Contact Info) Description 02/13/2025 Abstract [facility] [address] [place] [address] Diaz Dalton MD [address] [place] [address] Social History Tobacco Use Types Packs/Day Years [...] Upcoming Encounters Date Type Department Care Team ([facility] Contact Info) Description 06/30/2025 10:10 AM EDT Office Visit N[facility]Ger [place] OBNATALIE [address] [facility] [address] Feliz Benz DO [address] [place], [place] [address] 07/10/2025 1:00 PM EST Office Visit [facility] [place] [facility] [address] [address] Barry Martinez, INSPECTOR AIR CARRIER [address] [place] [address] 08/19/2025 2:00 PM EST Office Visit CHELSEY CARRERA [address] [place] [address] Feliz Benz DO [address] [facility] [place] [address] documented as of this encounter Visit Diagnoses Not on filedocumented in this encounter Care Teams Open Shank Coverer Relationship Specialty Start Date End Date Diaz Dalton MD PCP - General Family Medicine 09/25/23 documented as of this encounter
--- OUTSIDE RECORDS SUMMARY | 2025-06-05 08:15 | XMS_ITS | Encounter Summary ---
Author Organization [facility] Address [address] [place] [address] Care Team Providers Care Groundwater Consultant Name Role Phone Diaz Dalton MD Primary Care Provider [phone] Encounter Details Date Type Department Care Team (Late Contact Info) Description 02/13/2025 Abstract [facility] [address] [place] [address] Diaz Dalton MD [address] [place] [address] Social History Tobacco Use Types Packs/Day Years [...] Team ([facility] Contact Info) Description 06/30/2025 10:10 AM EDT Office Visit NOMGer [place] OBNATALIE [address] [facility] [address] Feliz Benz DO [address] [place], [place] [address] 07/10/2025 1:00 PM EST Office Visit [facility] [place] [facility] [address] [address] Barry Martinez, BRAILLE CODER [address] [place] [address] 08/19/2025 2:00 PM EST Office Visit CHELSEY CARRERA [address] [place] [phone] Feliz Benz DO [address] [facility] [place] [address] documented as of this encounter Visit Diagnoses Not on filedocumented in this encounter Care Teams Groundwater Consultant Relationship Specialty Start Date End Date Diaz Dalton MD PCP - General Family Medicine 09/25/23 documented as of this encounter
--- OUTSIDE RECORDS SUMMARY | 2025-06-05 08:15 | XMS_ITS | Encounter Summary ---
Author Organization [facility] Address [address] [place] [address] Care Team Providers Care Throw Out Clerk Name Role Phone Diaz Dalton MD Primary Care Provider [phone] Reason for Visit * Reason Comments Med Refill Encounter Details Date Type Department Care Team ([facility] Contact Info) Description 03/15/2024 Refill [facility] [address] [place] [address] Diaz Dalton MD [address] [place] [address] Migraine without aura and without status migrainosus, [...] Upcoming Encounters Date Type Department Care Team ([facility] Contact Info) Description 06/30/2025 10:10 AM EDT Office Visit [facility] [address] [facility] [place] [address] Feliz Benz DO [address] [facility] [place] [address] 07/10/2025 1:00 PM EST Office Visit [facility] [place] [facility] [address] [facility] [place] [address] Barry Martinez, TELEPHONE SEX WORKER [address] [place], [place] [address] 08/19/2025 2:00 PM EST Office Visit [facility] [place] [facility] [address] [facility] [place] [address] Feliz Benz, DO [address] [facility] [place] [address] documented as of this encounter Visit Diagnoses Diagnosis Migraine without aura and without status migrainosus, not intractable documented in this encounter Care Teams Throw Out Clerk Relationship Specialty Start Date End Date Diaz Dalton MD PCP - General Family Medicine 09/25/23 documented as of this encounter
== END 2025-06-05 08:01 | disposition home or self-care (01) ==
PROVIDERS: PCP Family Medicine; Visit Provider Obstetrics & Gynecology
DX: Z01.810 Encounter for preprocedural cardiovascular examination (principal); R10.2 Pelvic and perineal pain; N94.89 Other specified conditions associated with female genital organs and menstrual cycle; A63.0 Anogenital (venereal) warts
CPT/HCPCS: 93005

== ENCOUNTER 2025-06-05 08:05 | Outpatient (OUT) | payer MEDICAID, SELFPAY ==
--- OUTSIDE RECORDS SUMMARY | 2025-06-03 12:45 | XMS_ITS ---
Author Name Auto Generated Organization OHIP Support Name Relationship Address Phone OHMS, CECILE Next of Kin Unknown + JAY SCHWARTZ Next of Kin Unknown [phone] RANDY AVENDAÑO Next of Kin Unknown [phone] OHMS, CECILE Next of Kin Unknown + JAY SCHWARTZ Next of Kin Unknown [phone] RANDY AVENDAÑO Next of Kin Unknown [phone] Randy Avendaño Next of Kin Unknown [phone] Braxton Lozada Next of Kin [address] [place] [address] + OHMS, CECILE Next of Kin [address] [place] [address] + OHMS, CECILE Next of Kin [address] [place] [address] + Randy Avendaño Next of Kin Unknown [phone] Braxton Lozada Next of Kin [address] [place] [address] + OHMS, CECILE Next of Kin Unknown + JAY SCHWARTZ Next of Kin Unknown [phone] RANDY AVENDAÑO Next of Kin Unknown [phone] OHMS, CECILE Next of Kin Unknown + JAY SCHWARTZ Next of Kin Unknown [phone] RANDY AVENDAÑO Next of Kin Unknown [phone] OHMS, CECILE Next of Kin Unknown + JAY SCHWARTZ Next of Kin Unknown [phone] SLAUTER, RANDY Next of Kin Unknown [phone] OHMS, CECILE Next of Kin Unknown + JAY SCHWARTZ Next of Kin Unknown [phone] SLAUTER, RANDY Next of Kin Unknown [phone] OHMS, CECILE Next of Kin Unknown + JAY SCHWARTZ Next of Kin Unknown [phone] SLAUTER, RANDY Next of Kin Unknown [phone] OHMS, CECILE Next of Kin Unknown + JAY SCHWARTZ Next of Kin Unknown [phone] SLAUTER, RANDY Next of Kin Unknown [phone] OHMS, CECILE Next of Kin Unknown + JAY SCHWARTZ Next of Kin Unknown [phone] SLAUTER, RANDY Next of Kin Unknown [phone] OHMS, CECILE Next of Kin Unknown + JAY SCHWARTZ Next of Kin Unknown [phone] SLAUTER, RANDY Next of Kin Unknown [phone] OHMS, CECILE Next of Kin [address] [place] [facility] [place] [address] + OHMS, CECILE Next of Kin Unknown + JAY SCHWARTZ Next of Kin Unknown [phone] SLAUTER, RANDY Next of Kin Unknown [phone] OHMS, CECILE Next of Kin Unknown + JAY SCHWARTZ Next of Kin Unknown [phone] SLAUTER, RANDY Next of Kin Unknown [phone] OHMS, CECILE Next of Kin Unknown + JAY SCHWARTZ Next of Kin Unknown [phone] SLAUTER, RANDY Next of Kin Unknown [phone] OHMS, CECILE Next of Kin [address] [place] [address] + OHMS, CECILE Next of Kin [address] [place] [address] + OHMS, CECILE Next of Kin [address] [place] [address] + OHMS, CECILE Next of Kin Unknown + JAY SCHWARTZ Next of Kin Unknown [phone] SLAUTER, RANDY Next of Kin Unknown [phone] OHMS, CECILE Next of Kin [address] [place] [address] + OHMS, CECILE Next of Kin Unknown + JAY SCHWARTZ Next of Kin Unknown [phone] SLAUTER, RANDY Next of Kin Unknown [phone] OHMS, CECILE Next of Kin [address] [place] [address] + OHMS, CECILE Next of Kin Unknown + JAY SCHWARTZ Next of Kin Unknown [phone] SLAUTER, RANDY Next of Kin Unknown [phone] OHMS, CECILE Next of Kin [address] [place] [address] + SLAUTER, PRAMOD Next of Kin Unknown Unavailable SLAUTER, PRAMOD Next of Kin Unknown Unavailable OHMS, CECILE Next of Kin [address] [place] [address] + SLAUTER, PRAMOD Next of Kin Unknown Unavailable SLAUTER, PRAMOD Next of Kin Unknown Unavailable OHMS, CECILE Next of Kin [address] [place] [address] + SLAUTER, PRAMOD Next of Kin Unknown Unavailable SLAUTER, PRAMOD Next of Kin Unknown Unavailable OHMS, CECILE Next of Kin [address] [place] [address] + SLAUTER, PRAMOD Next of Kin Unknown Unavailable SLAUTER, PRAMOD Next of Kin Unknown Unavailable OHMS, CECILE Next of Kin [address] [place] [address] + SLAUTER, PRAMOD Next of Kin Unknown Unavailable SLAUTER, PRAMOD Next of Kin Unknown Unavailable OHMS, CECILE Next of Kin Unknown + LANA JAY Next of Kin Unknown [phone] SLAUTER, RANDY Next of Kin Unknown [phone] OHMS, CECILE Next of Kin Unknown + LANA JAY Next of Kin Unknown [phone] SLAUTER, RANDY Next of Kin Unknown [phone] OHMS, CECILE Next of Kin [address] [place] [address] + SLAUTER, PRAMOD Next of Kin Unknown Unavailable SLAUTER, PRAMOD Next of Kin Unknown Unavailable OHMS, CECILE Next of Kin [address] [place] [address] + SLAUTER, PRAMOD Next of Kin Unknown Unavailable SLAUTER, PRAMOD Next of Kin Unknown Unavailable OHMS, CECILE Next of Kin [address] [place] [address] + SLAUTER, PRAMOD Next of Kin Unknown Unavailable SLAUTER, PRAMOD Next of Kin Unknown Unavailable OHMS, CECILE Next of Kin Unknown + LANA JAY Next of Kin Unknown [phone] SLAUTER, RANDY Next of Kin Unknown [phone] OHMS, CECILE Next of Kin [address] [place] [address] + SLAUTER, PRAMOD Next of Kin Unknown Unavailable SLAUTER, PRAMOD Next of Kin Unknown Unavailable OHMS, CECILE Next of Kin [address] [place] [address] + SLAUTER, PRAMOD Next of Kin Unknown Unavailable SLAUTER, PRAMOD Next of Kin Unknown Unavailable OHMS, CECILE Next of Kin [address] [place] [address] + SLAUTER, PRAMOD Next of Kin Unknown Unavailable SLAUTER, PRAMOD Next of Kin Unknown Unavailable OHMS, CECILE Next of Kin Unknown + JAY SCHWARTZ Next of Kin Unknown [phone] SLARANDY COFFMAN Next of Kin Unknown [phone] OHMS, CECILE Next of Kin [address] [place] [address] + SLAUTER, PRAMOD Next of Kin Unknown Unavailable SLAUTER, PRAMOD Next of Kin Unknown Unavailable IAN ROJAS Next of Kin Unknown + OHMS, CECILE Next of Kin [address] [place] [address] + SLAUTER, PRAMOD Next of Kin Unknown Unavailable SLAUTER, PRAMOD Next of Kin Unknown Unavailable Care Team Providers Care Peanut Blancher Name Role Phone CARMEN BOWMAN Attending Unavailable DIAZ BETTS Attending Unavailable DIAZ BETTS Attending Unavailable DIAZ BETTS Attending Unavailable SHAMA MEDINA Attending Unavailable SHAMA MEDINA Referring Unavailable JR. ЮЛИЯ, LEONCIO Lynn Attending Unavaila ERIK Triana Attending Unavailable SIMRAN VALADEZ Attending Unavailable JR. ЮЛИЯ, LEONCIO Lynn Referring Unavaila TUCKER Sen Attending Unavailable JR. ЮЛИЯ, LEONCIO Lynn Referring Unavaila FABIOLA Camara Attending Unavailable JR. ЮЛИЯ, LEONCIO Lynn Referring Unavaila FABIOLA Camara Attending Unavailable JR. ЮЛИЯ, LEONCIO Lynn Referring Unavaila ble ERIK BURR Attending Unavailable JR. ЮЛИЯ, LEONCIO Lynn Attending Unavaila ROSENDA Underwood Attending Unavailable ROSENDA SNOWDEN Attending Unavailable DIAZ BETTS Attending Unavailable ERIK BURR Attending Unavailable ERIK BURR Attending Unavailable SHAMA MEDINA Attending Unavailable LINDSAY BAPTISTE Attending Unavailable DIAZ BETTS Referring Unavailable DIAZ BETTS Primary Care Unavailable KATELYN JAIMES Attending Unavailable DIAZ BETTS Referring Unavailable DIAZ BETTS Primary Care Unavailable LEONCIO SOTO Admitting Unavailable LEONCIO SOTO Attending Unavailable NADERER, DIAZ Primary Care Unavailable NADERER, DIAZ Primary Care Unavailable WILL CAGLE Attending Unavailable NADERER, DIAZ Referring Unavailable NADERER, DIAZ Primary Care Unavailable ALEX RAMÍREZ Attending Unavailable NADERER, DIAZ Referring Unavailable NADERER, DIAZ Primary Care Unavailable NADERER, DIAZ Primary Care Unavailable SANJIV TAYLOR Attending Unavailable JACK HOLLAND Admitting Unavailable ALEX RAMÍREZ Referring Unavailable NADERER, DIAZ Primary Care Unavailable TANIA MARTINEZ Referring Unavailable NADERER, DIAZ Primary Care Unavailable KARELY ROBERTO Attending Unavailable NADERER, DIAZ Referring Unavailable NADERER, DIAZ Primary Care Unavailable NADERER, DIAZ Referring Unavailable NADERER, DIAZ Primary Care Unavailable ALIYA SOLORZANO Admitting Unavailable ALIYA SOLORZANO Attending Unavailable ALIYA SOLORZANO Referring Unavailable NADERER, DIAZ Primary Care Unavailable KATELYN JAIMES Attending Unavailable NADERER, DIAZ Referring Unavailable NADERER, DIAZ Primary Care Unavailable NADERER, DIAZ Primary Care Unavailable HUMBERTO CARRASCO Attending Unavailable NADERER, DIAZ Referring Unavailable NADERER, DIAZ Primary Care Unavailable PACHECO OTT Attending Unavailable NADERER, DIAZ Referring Unavailable NADERER, DIAZ Primary Care Unavailable KATELYN JAIMES Attending Unavailable NADERER, DIAZ Referring Unavailable NADERER, DIAZ Primary Care Unavailable LINDSAY BAPTISTE Attending Unavailable LINDSAY BAPTISTE Referring Unavailable NADERER, DIAZ Primary Care Unavailable LINDSAY BAPTISTE Attending Unavailable NADERER, DIAZ Referring Unavailable NADERER, DIAZ Primary Care Unavailable NADERER, DIAZ Referring Unavailable NADERER, DIAZ Primary Care Unavailable PACHECO OTT Attending Unavailable NADERER, DIAZ Referring Unavailable NADERER, DIAZ Primary Care Unavailable Gary Miller Attending Unavail able Gary Miller Admitting Unavail able NADERER, DIAZ A Primary Care Unavailable Randall Soria Attending Unavailable Naderer, Diaz Primary Care Unavailable Randall Soria Admitting Unavailable Randall Soria Attending Unavailable Mannyr, Diaz Primary Care Unavailable Randall Soria Admitting Unavailable PROBLEMS DATE TYPE CONDITION / CODE ATTENDING STATUS [facility] 05/15/2025 Unknown Posterior subcap sular polar age-related cataract, right eye / H25.041(ICD-10) Randall Soria [facility] 05/06/2025 Unknown Hypoxemia / R09.02(ICD-10) NA [facility] 03/13/2025 Unknown Cough / FREETEXT(AOF) LINDSAY BAPTISTE [facility] 03/13/2025 Unknown Wheezing / FREETEXT(AOF) OLIVA [facility] 01/01/2025 Unknown Essential (prima ry) hypertension / I10(ICD-10) FIONA KATELYN [facility] 07/22/2024 Unknown Type 2 diabetes mellitus with other specified complication / E11.69(ICD-10) KATELYN JAIMES [facility] 07/22/2024 Unknown Hyperlipidemia, unspecified / E78.5(ICD-10) FIONA [facility] 12/04/2024 Unknown Sleep Apnea / FREETEXT(AOF) TYSON OTTFUAD [facility] 10/27/2024 Unknown Nausea / R11.0(ICD-10) HUMBERTO JUAREZ [facility] 10/27/2024 Unknown Dizziness and gi ddiness / R42(ICD-10) [facility] Unknown Nausea with vomi ting, unspecified / R11.2(ICD-10) HUMBERTO CARRASCO [facility] 10/27/2024 Unknown Nausea / FREETEXT(AOF) [facility] Unknown Chronic diastoli c (congestive) heart failure / I50.32(ICD-10) KATELYN JAIMES [facility] 07/22/2024 Unknown Type 2 diabetes mellitus with hyperglycemia / E11.65(ICD-10) FIONA KATELYN [facility] 07/22/2024 Unknown 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 07/22/2024 Unknown Chronic respirat ory failure with hypoxia / J96.11(ICD-10) [facility] 08/06/2024 Unknown Morbid (severe) obesity due to excess calories / E66.01(ICD-10) [facility] 07/22/2024 Unknown Chronic obstruct prerna pulmonary disease with (acute) exacerbation / J44.1(ICD-10) CLAUDIA SANJIV [facility] 07/22/2024 Unknown Other chest pain / R07.89(ICD-10) CLAUDIA SANJIV L [facility] 06/28/2024 Unknown Chest pain, unsp ecified / R07.9(ICD-10) WILL CAGLE [facility] 06/28/2024 Unknown Chest Pain / FREETEXT(AOF) WILL CAGLE [facility] 06/26/2024 Unknown Pulm HTN / UNK(Unknown) LEONCIO SOTO [facility] 06/20/2024 Unknown Pulmonary hypert ension, unspecified / I27.20(ICD-10) FIONA KATELYN [facility] 02/08/2024 Unknown Other forms of d yspnea / R06.09(ICD-10) KATELYN JAIMES [facility] 06/20/2024 Unknown Hyperlipidemia / FREETEXT(AOF) KATELYN JAIMES [facility] 02/19/2024 Unknown Moderate persist ent asthma, uncomplicated / J45.40(ICD-10) LINDSAY BAPTISTE [facility] 02/08/2024 Unknown Solitary pulmona ry nodule / R91.1(ICD-10) LINDSAY BAPTISTE [facility] 12/21/2023 Unknown Obstructive slee p apnea (adult) (pediatric) / G47.33(ICD-10) LINDSAY BAPTISTE [facility] 06/13/2024 Unknown Follow-up / FREETEXT(AOF) LINDSAY BAPTISTE [facility] PROCEDURES No Procedure Records Found RESULTS GLUCOSE POCT GLUCOMETERS Collected: 05/15/2025 9:33 A M Status: F Source: [facility] TYPE CODE TESTS RESULT OUT OF RANGE REFERENCE UNITS LAB GLUPOC Glucose Poc Glucometers 99 mg/dL Result Comment: Random Gluco se Reference Range is dependent on time and content of last meal. Glucose of more than 200 mg/dL in a nonstressed, ambulatory subject supports the diagnosis of Diabetes Mellitus. LAB COMM1 Commemt1 Glu2: Cleaned Meter Result Comment: PERFORMED BY : [place] [address] [place] [address] PATHOLOGIST WELT STITCH CLEANER CHANDA ROBERTS M.D. Performed By: #### GLULS ### # Point of Care testing , HGB A1C (GLYCO-HGB) Collected: 11/01/2024 8:51 AM Status: COMPLETED Source: [facility] TYPE CODE TESTS RESULT OUT OF RANGE REFERENCE UNITS LAB HBA1C(LOINC) HEMOGLOBIN A1C 12.8 High 4.4-5.6 % Result Comment: NOTE ADA Guidelines Result HgbA1c Normal : less than 5.7 % Prediabetes : 5.7 % to 6.4 % Diabetes : > 6.4 % Use with caution in patients with abnormal hemoglobin variants as the half-life of red blood cells and in vivo glycation rates are affected. LAB EAG(LOINC) AVERAGE GLUCOSE 321 mg/dL Performed By: #### HA1C #### [facility] ([id number]) [address], [address] [place] [address] URN MACROSCOPIC SMITHA Collected: 10/27/2024 5:08 PM Status: COMPLETED Source: [facility] TYPE CODE TESTS RESULT OUT OF RANGE REFERENCE UNITS LAB SPGRN(LOINC) SPECIFIC GRAVITY SMITHA 1.010 1.003-1.035 LAB LESTN(LOINC) LEUKOCYTE ESTERASE SMITHA Negative (qualifier value) NEG LAB NITN(LOINC) NITRITE SMITHA Negative (qualifier value) NEG LAB PHURN(LOINC) PH SMITHA 5.0 5.0-8.5 LAB PRURN(LOINC) PROTEIN SMITHA Negative (qualifier value) NEG mg/dL LAB GLURN(LOINC) GLUCOSE SMITHA >=1000 Abnormal NEG mg/dL LAB KETN(LOINC) KETONES SMITHA Negative (qualifier value) NEG mg/dL LAB UROBN(LOINC) UROBILINOGEN SMITHA 0.2 <1.1 eu/dL LAB BILEN(LOINC) BILIRUBIN SMITHA Negative (qualifier value) NEG LAB BLURN(LOINC) BLOOD/HGB SMITHA Trace Abnormal NEG Performed By: #### NUM #### [facility] ([id number]) [address] [place] [address], [place] [address] VENOUS BLOOD GAS Collected: 10/27/2024 3:24 PM Status: COMPLETED Source: [facility] TYPE CODE TESTS RESULT OUT OF RANGE REFERENCE UNITS LAB STYP(LOINC) SAMPLE TYPE VENOUS LAB TEMP(LOINC) BODY TEMP 37.0 37.0 C LAB PHV(LOINC) PH, VENOUS 7.368 7.320-7.420 LAB PCO2V(LOINC) PCO2, VENOUS 48.1 35-50 MM[facility] LAB O2V(LOINC) PO2, VENOUS 27 Low 30-50 [facility] LAB BE(LOINC) BASE,EXCESS 2.0 0.0-2.0 MMOL/L LAB HCO3C(LOINC) HCO3 27.7 High 20.0-24.0 MMOL/L LAB SO2V(LOINC) % O2 SAT 48.0 Low >80.0 % LAB ALN(LOINC) BIBI'S TEST NA LAB SSIT(LOINC) SAMPLE SITE N/A LAB OXY(LOINC) OXYGEN SOURCE [employer] Performed By: #### VBG #### [facility] ([id number]) [address] [place] [address], [place] [address] CBC AND AUTO DIFF Collected: 10/27/2024 3:13 PM Status: COMPLETED Source: [facility] TYPE CODE TESTS RESULT OUT OF RANGE REFERENCE UNITS LAB WBC(LOINC) WBC COUNT 6.7 4.0-11.0 X10E9/L LAB RBC(LOINC) RBC COUNT 5.26 High 3.80-5.20 X10E12/L LAB HGB(LOINC) HEMOGLOBIN 15.1 11.7-15.5 g/dL LAB HCT(LOINC) HEMATOCRIT 44.0 35-47 % LAB MCV(LOINC) MCV 84 80-100 fL LAB MCH(LOINC) MCH 28.7 27-34 pg LAB MCHC(LOINC) MCHC 34.4 32-36 g/dL LAB RDW(LOINC) RDW 13.8 11.5-15.0 % LAB PLTC(LOINC) PLATELET COUNT 211 150-450 X10E9 /L LAB MPV(LOINC) MPV 7.8 7-12 fL LAB NEUT(LOINC) % NEUTROPHILS 52.5 % LAB LYMP(LOINC) % LYMPHOCYTES 39.7 % LAB MONO(LOINC) % MONOCYTES 6.5 % LAB EOS(LOINC) % EOSINOPHILS 0.8 % LAB BASO(LOINC) % BASOPHILS 0.5 % LAB ANEUT(LOINC) ABSOLUTE NEUTROPHIL 3.5 1.5-6.6 X10E9/L LAB ALYMP(LOINC) ABSOLUTE LYMPHOCYTE 2.7 1.0-3.5 X10E9/L LAB AMONO(LOINC) ABSOLUTE MONOCYTE 0.4 0-0.9 X10E9/L LAB AEOS(LOINC) ABSOLUTE EOSINOPHIL 0.1 0.0-0.4 X10E9/L LAB ABASO(LOINC) ABSOLUTE BASOPHIL 0.0 0.0-0.2 X10E9/L Performed By: #### CBCA, CMP , 3040-3, 6873-4 #### [facility] ([id number]) [address] [place] [address] COMPREHENSIVE METABOLIC PANEL Collected: 2024 3:13 PM Status: COMPLETED Source: [facility] TYPE CODE TESTS RESULT OUT OF RANGE REFERENCE UNITS LAB NA(LOINC) SODIUM 136 134-146 mmol/L LAB K(LOINC) POTASSIUM 3.6 3.5-5.0 mmol/L LAB CL(LOINC) CHLORIDE 101 98-109 mmol/L LAB CO2(LOINC) CARBON DIOXIDE 26 22-32 mmol/L LAB AGAP(LOINC) ANION GAP 9 5-15 mmol/L LAB BUN(LOINC) BLOOD UREA NITROGEN 28 High 5-23 mg/dL LAB CRET(LOINC) CREATININE 1.06 High 0.40-1.00 mg/dL Result Comment: METHOD TRACE ABLE TO IDMS STANDARD LAB GLU(LOINC) GLUCOSE 148 High 65-99 mg/dL LAB CA(LOINC) CALCIUM 9.2 8.5-10.5 mg/dL LAB TP(LOINC) TOTAL PROTEIN 7.7 6.0-8.0 g/dL LAB ALB(LOINC) ALBUMIN 4.1 3.2-5.3 g/dL LAB ALK(LOINC) ALKALINE PHOSPHATASE 82 39-130 U/L LAB AST(LOINC) AST 27 0-41 U/L LAB ALT1(LOINC) ALT 35 High 0-31 U/L LAB TBIL(LOINC) BILIRUBIN,TOTAL 0.4 0.3-1.2 mg/d L LAB EGFR(LOINC) eGFR (CKD-EPI) NON-RACE DEPENDENT 66 >59 ml/min/1 .73sq.m Result Comment: Reported eGFR is based on the CKD-EPI 2020 equation that does not use a race coefficient. Performed By: #### TIFF DURBIN , 3040-3, 6873-4 #### [facility] ([id number]) [address] [place] [address] LIPASE Collected: 10/27/2024 3:13 PM S tatus: COMPLETED Source: [facility] TYPE CODE TESTS RESULT OUT OF RANGE REFERENCE UNITS LAB LIPA(LOINC) LIPASE 24 17-40 U/L Performed By: #### RAMAKRISHNA, TIFF , 3040-3, 6873-4 #### [facility] ([id number]) [address] [place] [address] BETAHYDROXYBUTYRATE Collected: 10/27/2024 3:[address] atus: COMPLETED Source: [facility] TYPE CODE TESTS RESULT OUT OF RANGE REFERENCE UNITS LAB KETB(LOINC) BetaHydroxybutyrate 1.14 High 0.02-0.2 7 mmol/L Performed By: #### CBCA, CMP , 3040-3, 6873-4 #### [facility] ([id number]) [address] [place] [address] SURGICAL PATHOLOGY Collected: 10:30 AM Status: COMPLETED Source: [facility] TYPE CODE TESTS RESULT OUT OF RANGE REFERENCE UNITS LAB [id number]&rpt Surgical Pathology Result Comment: [facility] [address] [place] [address] Surgical Pathology Consultation Patient Name:YAMILA LOZADA:1980 (Age: 44)Gender:FTaken:09/12/2024Reported:09/17/2024Physician(s):Aliya Solorzano D.O. ([phone])Copy To: Rec. #:[id number]: #[id number] Final Pathologic Diagnosis Hepatic flexure polyp, biopsies: Fecal material, nondiagnostic. No colonic tissue present. Report Electronically Signed Out ssi/09/17/2024Taras Lara M.D. Interpretation performed at [facility], [address] [place] [address], License number: [id number]. Clinical History Screening Gross Description Received in formalin labeled adam LOZADA are pale-mims soft tissue fragments admixed with friable bits two material, 0.5 x 0.2 x 0.1 cm in aggregate. The specimen is filtered and entirely submitted in a single cassette. (1, ns, [id number],m4) DM. dm/09/13/2024WAK Specimen(s) Received Hepatic flexure polyp Fee Codes(s): 1; 79653 BASIC METABOLIC PANL Collected: 07/30/2024 11:2 7 AM Status: COMPLETED Source: [facility] TYPE CODE TESTS RESULT OUT OF RANGE REFERENCE UNITS LAB NA(LOINC) SODIUM 132 Low 134-146 mmol/L LAB K(LOINC) POTASSIUM 4.7 3.5-5.0 mmol/L LAB CL(LOINC) CHLORIDE 92 Low 98-109 mmol/L LAB CO2(LOINC) CARBON DIOXIDE 32 22-32 mmol/L LAB AGAP(LOINC) ANION GAP 8 5-15 mmol/L LAB BUN(LOINC) BLOOD UREA NITROGEN 25 High 5-23 mg/dL LAB CRET(LOINC) CREATININE 0.94 0.40-1.00 mg/dL Result Comment: METHOD TRACE ABLE TO IDMS STANDARD LAB GLU(LOINC) GLUCOSE 577 High Alert 65-99 mg/dL LAB CA(LOINC) CALCIUM 9.9 8.5-10.5 mg/dL LAB EGFR(LOINC) eGFR (CKD-EPI) NON-RACE DEPENDENT 76 >59 ml/min/1. 73sq.m Result Comment: Reported eGFR is based on the CKD-EPI 2020 equation that does not use a race coefficient. Performed By: #### BMP #### [facility] ([id number]) [address] [place] [address], [address] [place] [address] BEDSIDE GLUCOSE LAB Collected: 07/23/2024 12:18 PM Status: COMPLETED Source: [facility] TYPE CODE TESTS RESULT OUT OF RANGE REFERENCE UNITS LAB BEDG(LOINC) BEDSIDE GLUCOSE LAB 169 High 65-99 mg/dL BEDSIDE GLUCOSE LAB Collected: 07/23/2024 7:54 AM Status: COMPLETED Source: [facility] TYPE CODE TESTS RESULT OUT OF RANGE REFERENCE UNITS LAB BEDG(LOINC) BEDSIDE GLUCOSE LAB 260 High 65-99 mg/dL CBC AND AUTO DIFF Collected: 07/23/2024 6:01 AM Status: COMPLETED Source: [facility] TYPE CODE TESTS RESULT OUT OF RANGE REFERENCE UNITS LAB WBC(LOINC) WBC COUNT 10.0 4.0-11.0 X10E9/L LAB RBC(LOINC) RBC COUNT 3.86 3.80-5.20 X10E12/L LAB HGB(LOINC) HEMOGLOBIN 11.1 Low 11.7-15.5 g/dL LAB HCT(LOINC) HEMATOCRIT 33.7 Low 35-47 % LAB MCV(LOINC) MCV 87 80-100 fL LAB MCH(LOINC) MCH 28.7 27-34 pg LAB MCHC(LOINC) MCHC 32.9 32-36 g/dL LAB RDW(LOINC) RDW 13.5 11.5-15.0 % LAB PLTC(LOINC) PLATELET COUNT 190 150-450 X10E9 /L LAB MPV(LOINC) MPV 7.4 7-12 fL LAB NEUT(LOINC) % NEUTROPHILS 72.3 % LAB LYMP(LOINC) % LYMPHOCYTES 21.9 % LAB MONO(LOINC) % MONOCYTES 5.4 % LAB EOS(LOINC) % EOSINOPHILS 0.2 % LAB BASO(LOINC) % BASOPHILS 0.2 % LAB ANEUT(LOINC) ABSOLUTE NEUTROPHIL 7.2 High 1.5-6.6 X10E9/L LAB ALYMP(LOINC) ABSOLUTE LYMPHOCYTE 2.2 1.0-3.5 X10E9/L LAB AMONO(LOINC) ABSOLUTE MONOCYTE 0.5 0-0.9 X10E9/L LAB AEOS(LOINC) ABSOLUTE EOSINOPHIL 0.0 0.0-0.4 X10E9/L LAB ABASO(LOINC) ABSOLUTE BASOPHIL 0.0 0.0-0.2 X10E9/L Performed By: #### CBCA, CMP , 09546-9, 70339-2 #### [facility] ([id number]) [address] [place] [address], [place] [address] COMPREHENSIVE METABOLIC PANEL Collected: 2023 6:01 AM Status: COMPLETED Source: [facility] TYPE CODE TESTS RESULT OUT OF RANGE REFERENCE UNITS LAB NA(LOINC) SODIUM 133 Low 134-146 mmol/L LAB K(LOINC) POTASSIUM 4.2 3.5-5.0 mmol/L LAB CL(LOINC) CHLORIDE 100 98-109 mmol/L LAB CO2(LOINC) CARBON DIOXIDE 24 22-32 mmol/L LAB AGAP(LOINC) ANION GAP 9 5-15 mmol/L LAB BUN(LOINC) BLOOD UREA NITROGEN 42 High 5-23 mg/dL LAB CRET(LOINC) CREATININE 1.13 High 0.40-1.00 mg/dL Result Comment: METHOD TRACE ABLE TO IDMS STANDARD LAB GLU(LOINC) GLUCOSE 307 High 65-99 mg/dL LAB CA(LOINC) CALCIUM 8.5 8.5-10.5 mg/dL LAB TP(LOINC) TOTAL PROTEIN 6.0 6.0-8.0 g/dL LAB ALB(LOINC) ALBUMIN 3.3 3.2-5.3 g/dL LAB ALK(LOINC) ALKALINE PHOSPHATASE 66 39-130 U/L LAB AST(LOINC) AST 11 0-41 U/L LAB ALT1(LOINC) ALT 16 0-31 U/L LAB TBIL(LOINC) BILIRUBIN,TOTAL 0.3 0.3-1.2 mg/d L LAB EGFR(LOINC) eGFR (CKD-EPI) NON-RACE DEPENDENT 61 >59 ml/min/1 .73sq.m Result Comment: Reported eGFR is based on the CKD-EPI 2020 equation that does not use a race coefficient. Performed By: #### TIFF DURBIN , [id number], [id number] #### [facility] ([id number]) [address] [place] [address] PROCALCITONIN Collected: 07/23/2024 6:01 AM Status: COMPLETED Source: [facility] TYPE CODE TESTS RESULT OUT OF RANGE REFERENCE UNITS LAB PCAL(LOINC) PROCALCITONIN 0.20 High <0.05 ng/mL Result Comment: NOTE <0.50 ng/mL - Low risk of severe sepsis and/or septic shock. <2.00 ng/mL - Recommend retesting within 6-24 hours. >2.00 ng/mL - High risk of sepsis and/or septic shock. Performed By: #### TIFF DURBIN , 55561-1, 63231-2 #### [facility] ([id number]) [address] [place] [address] MAGNESIUM Collected: 07/23/2024 6:01 AM S tatus: COMPLETED Source: [facility] TYPE CODE TESTS RESULT OUT OF RANGE REFERENCE UNITS LAB MG(LOINC) MAGNESIUM 2.2 1.8-2.6 mg/dL Performed By: #### CBCA, [facility] , 15915-5, 52869-9 #### [facility] ([id number]) [address] [place] [address], [place] [address] BEDSIDE GLUCOSE LAB Collected: 07/22/2024 9:43 PM Status: COMPLETED Source: [facility] TYPE CODE TESTS RESULT OUT OF RANGE REFERENCE UNITS LAB BEDG(LOINC) BEDSIDE GLUCOSE LAB 311 High 65-99 mg/dL BEDSIDE GLUCOSE LAB Collected: 07/22/2024 5:11 PM Status: COMPLETED Source: [facility] TYPE CODE TESTS RESULT OUT OF RANGE REFERENCE UNITS LAB BEDG(LOINC) BEDSIDE GLUCOSE LAB 339 High 65-99 mg/dL BEDSIDE GLUCOSE LAB Collected: 07/22/2024 11:38 AM Status: COMPLETED Source: [facility] TYPE CODE TESTS RESULT OUT OF RANGE REFERENCE UNITS LAB BEDG(LOINC) BEDSIDE GLUCOSE LAB 363 High 65-99 mg/dL BEDSIDE GLUCOSE LAB Collected: 07/22/2024 7:31 AM Status: COMPLETED Source: [facility] TYPE CODE TESTS RESULT OUT OF RANGE REFERENCE UNITS LAB BEDG(LOINC) BEDSIDE GLUCOSE LAB 395 High 65-99 mg/dL CBC AND AUTO DIFF Collected: 07/22/2024 4:33 AM Status: COMPLETED Source: [facility] TYPE CODE TESTS RESULT OUT OF RANGE REFERENCE UNITS LAB WBC(LOINC) WBC COUNT 7.7 4.0-11.0 X10E9/L LAB RBC(LOINC) RBC COUNT 4.31 3.80-5.20 X10E12/L LAB HGB(LOINC) HEMOGLOBIN 12.4 11.7-15.5 g/dL LAB HCT(LOINC) HEMATOCRIT 37.6 35-47 % LAB MCV(LOINC) MCV 87 80-100 fL LAB MCH(LOINC) MCH 28.9 27-34 pg LAB MCHC(LOINC) MCHC 33.1 32-36 g/dL LAB RDW(LOINC) RDW 13.2 11.5-15.0 % LAB PLTC(LOINC) PLATELET COUNT 171 150-450 X10E9 /L LAB MPV(LOINC) MPV 7.5 7-12 fL LAB NEUT(LOINC) % NEUTROPHILS 92.3 % LAB LYMP(LOINC) % LYMPHOCYTES 6.8 % LAB MONO(LOINC) % MONOCYTES 0.8 % LAB EOS(LOINC) % EOSINOPHILS 0.0 % LAB BASO(LOINC) % BASOPHILS 0.1 % LAB ANEUT(LOINC) ABSOLUTE NEUTROPHIL 7.1 High 1.5-6.6 X10E9/L LAB ALYMP(LOINC) ABSOLUTE LYMPHOCYTE 0.5 Low 1.0-3.5 X10E9/L LAB AMONO(LOINC) ABSOLUTE MONOCYTE 0.1 0-0.9 X10E9/L LAB AEOS(LOINC) ABSOLUTE EOSINOPHIL 0.0 0.0-0.4 X10E9/L LAB ABASO(LOINC) ABSOLUTE BASOPHIL 0.0 0.0-0.2 X10E9/L Performed By: #### CBCA, CMP , 58575-4 #### [facility] ([id number]) [address] [place] [address], [place] [address] #### HA1C #### [facility] ([id number]) [address] [place] [address], [address] [place] [address] COMPREHENSIVE METABOLIC PANEL Collected: 2023 4:33 AM Status: COMPLETED Source: [facility] TYPE CODE TESTS RESULT OUT OF RANGE REFERENCE UNITS LAB NA(LOINC) SODIUM 135 134-146 mmol/L LAB K(LOINC) POTASSIUM 4.1 3.5-5.0 mmol/L LAB CL(LOINC) CHLORIDE 99 98-109 mmol/L LAB CO2(LOINC) CARBON DIOXIDE 20 Low 22-32 mmol/L LAB AGAP(LOINC) ANION GAP 16 High 5-15 mmol/L LAB BUN(LOINC) BLOOD UREA NITROGEN 28 High 5-23 mg/dL LAB CRET(LOINC) CREATININE 1.14 High 0.40-1.00 mg/dL Result Comment: METHOD TRACE ABLE TO IDMS STANDARD LAB GLU(LOINC) GLUCOSE 484 High Alert 65-99 mg/dL LAB CA(LOINC) CALCIUM 8.9 8.5-10.5 mg/dL LAB TP(LOINC) TOTAL PROTEIN 6.6 6.0-8.0 g/dL LAB ALB(LOINC) ALBUMIN 3.5 3.2-5.3 g/dL LAB ALK(LOINC) ALKALINE PHOSPHATASE 80 39-130 U/L LAB AST(LOINC) AST 26 0-41 U/L LAB ALT1(LOINC) ALT <5 0-31 U/L LAB TBIL(LOINC) BILIRUBIN,TOTAL 0.4 0.3-1.2 mg/d L LAB EGFR(LOINC) eGFR (CKD-EPI) NON-RACE DEPENDENT 60 >59 ml/min/1 .73sq.m Result Comment: Reported eGFR is based on the CKD-EPI 2020 equation that does not use a race coefficient. Performed By: #### RAMAKRISHNA [facility] , 88329-1 #### [facility] ([id number]) [address] [place] [address] #### HA1C #### [facility] ([id number]) [address] [place] [address], [facility] [address] [place] [address] MAGNESIUM Collected: 07/22/2024 4:33 AM S tatus: COMPLETED Source: [facility] TYPE CODE TESTS RESULT OUT OF RANGE REFERENCE UNITS LAB MG(LOINC) MAGNESIUM 1.8 1.8-2.6 mg/dL Performed By: #### RAMAKRISHNA [facility] , 64733-9 #### [facility] ([id number]) [address] [place] [address] #### HA1C #### [facility] ([id number]) [address] [place] [address], [address] [place] [address] HGB A1C (GLYCO-HGB) Collected: 07/22/2024 4:33 AM Status: COMPLETED Source: [facility] TYPE CODE TESTS RESULT OUT OF RANGE REFERENCE UNITS LAB HBA1C(LOINC) HEMOGLOBIN A1C 9.6 High 4.4-5.6 % Result Comment: NOTE ADA Guidelines Result HgbA1c Normal : less than 5.7 % Prediabetes : 5.7 % to 6.4 % Diabetes : > 6.4 % Use with caution in patients with abnormal hemoglobin variants as the half-life of red blood cells and in vivo glycation rates are affected. LAB EAG([facility]) AVERAGE GLUCOSE 229 mg/dL Performed By: #### CBCA, [facility] , 37980-6 #### [facility] ([id number]) [address] [place] [address] #### HA1C #### [facility] ([id number]) [address] [place] [address], [address] [place] [address] BEDSIDE GLUCOSE LAB Collected: 07/22/2024 1:36 AM Status: COMPLETED Source: [facility] TYPE CODE TESTS RESULT OUT OF RANGE REFERENCE UNITS LAB BEDG([facility]) BEDSIDE GLUCOSE LAB 488 High Alert 65-99 mg/dL 3 HOUR TROP I, HIGH SENSITIVITY Collected: 07/05 11:15 PM Status: COMPLETED Source: [facility] TYPE CODE TESTS RESULT OUT OF RANGE REFERENCE UNITS LAB TNIHS3(LOINC) 3 HOUR TROP I, HIGH SENSITIVITY 3 <16 ng/L Performed By: #### 85392-1 # ### [facility] ([id number]) [address] [place] [address] 87448 1 HOUR TROP I, HIGH SENSITIVITY Collected: 07/05 5:49 PM Status: COMPLETED Source: [facility] TYPE CODE TESTS RESULT OUT OF RANGE REFERENCE UNITS LAB TNIHS1(LOINC) 1 HOUR TROP I, HIGH SENSITIVITY 3 <16 ng/L Performed By: #### 73435-8 # ### [facility] ([id number]) [address] [place] [address] 26577 XR CHEST 1 VW Observed: 07/21/2024 5:04 PM Status: COMPLETED Source: [facility] XR CHEST 1 VW XR CHEST 1 VW IMPRESSION: Clinical Information: chest pain Comparison: 10/25/24. * No pulmonary edema or consolidation. * No effusions. * Stable heart size. * Mild elevation right hemidiaphragm. Finalized by Shama Avitia MD on 07/21/2024 5:08 PM SARS/FLU A+B/RSV BY NAAT/MOLECULAR Observed: 07/21/2024 4:46 PM Status: COMPLETED Source: [facility] FLU A PCR Negative (qualifier value) FLU [...] operators who are performing tests using either [employer] or Guruji systems and is limited to laboratories that [...] specimen repeat. Fact Sheet for Healthcare Providers: https://www.fda.gov/media/372362/download Fact Sheet for Patients: https://www.fda.gov/media/303570/download Performed By: #### COVFLR ## ## [facility] ([id number]) [address] [place] [address], [place] [address] CBC AND AUTO DIFF Collected: 07/21/2024 4:40 PM Status: COMPLETED Source: [facility] TYPE CODE TESTS RESULT OUT OF RANGE REFERENCE UNITS LAB WBC(LOINC) WBC COUNT 5.2 4.0-11.0 X10E9/L LAB RBC(LOINC) RBC COUNT 4.77 3.80-5.20 X10E12/L LAB HGB(LOINC) HEMOGLOBIN 13.6 11.7-15.5 g/dL LAB HCT(LOINC) HEMATOCRIT 41.2 35-47 % LAB MCV(LOINC) MCV 87 80-100 fL LAB MCH(LOINC) MCH 28.5 27-34 pg LAB MCHC(LOINC) MCHC 33.0 32-36 g/dL LAB RDW(LOINC) RDW 13.3 11.5-15.0 % LAB PLTC(LOINC) PLATELET COUNT 190 150-450 X10E9 /L LAB MPV(LOINC) MPV 7.0 7-12 fL LAB NEUT(LOINC) % NEUTROPHILS 52.4 % LAB LYMP(LOINC) % LYMPHOCYTES 40.9 % LAB MONO(LOINC) % MONOCYTES 4.6 % LAB EOS(LOINC) % EOSINOPHILS 1.4 % LAB BASO(LOINC) % BASOPHILS 0.7 % LAB ANEUT(LOINC) ABSOLUTE NEUTROPHIL 2.7 1.5-6.6 X10E9/L LAB ALYMP(LOINC) ABSOLUTE LYMPHOCYTE 2.1 1.0-3.5 X10E9/L LAB AMONO(LOINC) ABSOLUTE MONOCYTE 0.2 0-0.9 X10E9/L LAB AEOS(LOINC) ABSOLUTE EOSINOPHIL 0.1 0.0-0.4 X10E9/L LAB ABASO(LOINC) ABSOLUTE BASOPHIL 0.0 0.0-0.2 X10E9/L Performed By: #### CBCA, 480 66-5, [facility], 75310-7, 03937-3, THYR, 72480-5 #### [facility] ([id number]) [address] [place] [address] 88442 D DIMER Collected: 4:40 PM Status: COMPLETED Source: [facility] TYPE CODE TESTS RESULT OUT OF RANGE REFERENCE UNITS LAB DDMR(LOINC) D DIMER 217 <255 ng/mL DDU Result Comment: Results <255 ng/mL DDU: The presence of a VTE can safely be excluded with a negative D-Dimer result and Wells score. A negative result doesn't exclude the possibility of DIC. The test be repeated along with other diagnostic tests if the patient's symptoms persist or worsen. [email or web address] Performed By: #### CBCA, [address] 66[address], [facility], 27195-8, 61047-2, THYR, 24102-7 #### [facility] ([id number]) [address] [place] [address] BASIC METABOLIC PANL Collected: 07/21/2024 4:40 PM Status: COMPLETED Source: [facility] TYPE CODE TESTS RESULT OUT OF RANGE REFERENCE UNITS LAB NA(LOINC) SODIUM 139 134-146 mmol/L LAB K(LOINC) POTASSIUM 4.2 3.5-5.0 mmol/L LAB CL(LOINC) CHLORIDE 100 98-109 mmol/L LAB CO2(LOINC) CARBON DIOXIDE 29 22-32 mmol/L LAB AGAP(LOINC) ANION GAP 10 5-15 mmol/L LAB BUN(LOINC) BLOOD UREA NITROGEN 23 5-23 mg/dL LAB CRET(LOINC) CREATININE 0.77 0.40-1.00 mg/dL Result Comment: METHOD TRACE ABLE TO IDMS STANDARD LAB GLU(LOINC) GLUCOSE 254 High 65-99 mg/dL LAB CA(LOINC) CALCIUM 9.2 8.5-10.5 mg/dL LAB EGFR(LOINC) eGFR (CKD-EPI) NON-RACE DEPENDENT >90 >59 ml/min/1. 73sq.m Result Comment: Reported eGFR is based on the CKD-EPI 2020 equation that does not use a race coefficient. Performed By: #### RAMAKRISHNA, 480 66-5, [facility], 79596-9, 87325-0, THYR, 47016-9 #### [facility] ([id number]) [address] [place] [address] MAGNESIUM Collected: 07/21/2024 4:40 PM S tatus: COMPLETED Source: [facility] TYPE CODE TESTS RESULT OUT OF RANGE REFERENCE UNITS LAB MG(LOINC) MAGNESIUM 2.0 1.8-2.6 mg/dL Performed By: #### RAMAKRISHNA, 480 66-5, [facility], 29103-9, 56993-3, THYR, 90429-6 #### [facility] ([id number]) [address] [place] [address] 86230 TROPONIN I, HIGH SENSITIVITY Collected: 4:40 PM Status: COMPLETED Source: [facility] TYPE CODE TESTS RESULT OUT OF RANGE REFERENCE UNITS LAB TNIHS(LOINC) TROPONIN I, HIGH SENSITIVITY 3 <16 ng/L Performed By: #### RAMAKRISHNA, 480 66-5, BMP, 82372-7, 07709-4, THYR, 57005-0 #### [facility] ([id number]) [address] [place] [address]34 THYROID PROFILE Collected: 07/21/2024 4:40 PM Status: COMPLETED Source: [facility] TYPE CODE TESTS RESULT OUT OF RANGE REFERENCE UNITS LAB TSH(LOINC) TSH 2.45 0.49-4.67 uIU/mL LAB FT4(LOINC) FREE T4 1.11 0.61-1.60 ng/dL Performed By: #### RAMAKRISHNA, 480 66-5, BMP, 08534-3, 19874-2, THYR, 31335-3 #### [facility] ([id number]) [address] [place] [address]908 BRN NATRIURETIC PEP Collected: 07/21/2024 4:40 PM Status: COMPLETED Source: [facility] TYPE CODE TESTS RESULT OUT OF RANGE REFERENCE UNITS LAB BNP(LOINC) BRN NATRIURETIC PEP 20 <100.0 pg/mL Performed By: #### CBCA, 480 66-5, BMP, 55248-8, 61303-7, THYR, 25551-1 #### [facility] ([id number]) [address] [place] [address] 92723 3 HOUR TROP I, HIGH SENSITIVITY Collected: 06/05 10:44 PM Status: COMPLETED Source: [facility] TYPE CODE TESTS RESULT OUT OF RANGE REFERENCE UNITS LAB TNIHS3(LOINC) 3 HOUR TROP I, HIGH SENSITIVITY 39 High <16 ng/L Result Comment: Elevations of hs-Troponin may be due to causes other than myocardial ischemia. Recommend serial hs-Troponin testing be performed. For the initial evaluation and management of chest pain patients, refer to the algorithms linked below. Emergency Patient: [email or web address].[employer]ds/dv/dl.[email or web address] Inpatient: [email or web address]://www.[email or web address]/dv/dl.[email or web address]=acaea Performed By: #### 11274-2 # ### [facility] ([id number]) [address] [place] [address] 22219 1 HOUR TROP I, HIGH SENSITIVITY Collected: 06/05 8:51 PM Status: COMPLETED Source: [facility] TYPE CODE TESTS RESULT OUT OF RANGE REFERENCE UNITS LAB TNIHS1(LOINC) 1 HOUR TROP I, HIGH SENSITIVITY 35 High <16 ng/L Result Comment: Elevations of hs-Troponin may be due to causes other than myocardial ischemia. Recommend serial hs-Troponin testing be performed. For the initial evaluation and management of chest pain patients, refer to the algorithms linked below. Emergency Patient: [email or web address]://www.Book [employer]/dv/dl.[email or web address]=acaea Inpatient: [email or web address]/[email or web address]=acaea Performed By: #### 04472-5 # ### [facility] ([id number]) [address] [place] [address], [place] [address] XR CHEST 1 VW Observed: 06/28/2024 7:57 PM Status: COMPLETED Source: [facility] XR CHEST 1 VW XR CHEST 1 [...] and agree with and/or edited the report Finalized by Stephan Richardson MD on 06/28/2024 8:13 PM CBC AND AUTO DIFF Collected: 06/28/2024 7:44 PM Status: COMPLETED Source: [facility] TYPE CODE TESTS RESULT OUT OF RANGE REFERENCE UNITS LAB WBC(LOINC) WBC COUNT 6.8 4.0-11.0 X10E9/L LAB RBC(LOINC) RBC COUNT 4.32 3.80-5.20 X10E12/L LAB HGB(LOINC) HEMOGLOBIN 12.4 11.7-15.5 g/dL LAB HCT(LOINC) HEMATOCRIT 37.6 35-47 % LAB MCV(LOINC) MCV 87 80-100 fL LAB MCH(LOINC) MCH 28.6 27-34 pg LAB MCHC(LOINC) MCHC 32.9 32-36 g/dL LAB RDW(LOINC) RDW 14.0 11.5-15.0 % LAB PLTC(LOINC) PLATELET COUNT 224 150-450 X10E9 /L LAB MPV(LOINC) MPV 6.9 Low 7-12 fL LAB NEUT(LOINC) % NEUTROPHILS 54.6 % LAB LYMP(LOINC) % LYMPHOCYTES 37.6 % LAB MONO(LOINC) % MONOCYTES 5.6 % LAB EOS(LOINC) % EOSINOPHILS 1.6 % LAB BASO(LOINC) % BASOPHILS 0.6 % LAB ANEUT(LOINC) ABSOLUTE NEUTROPHIL 3.7 1.5-6.6 X10E9/L LAB ALYMP(LOINC) ABSOLUTE LYMPHOCYTE 2.6 1.0-3.5 X10E9/L LAB AMONO(LOINC) ABSOLUTE MONOCYTE 0.4 0-0.9 X10E9/L LAB AEOS(LOINC) ABSOLUTE EOSINOPHIL 0.1 0.0-0.4 X10E9/L LAB ABASO(LOINC) ABSOLUTE BASOPHIL 0.0 0.0-0.2 X10E9/L Performed By: #### DACIA DURBIN , 27777-7, 40077-8 #### [facility] ([id number]) [address] [place] [address], [place] [address] BASIC METABOLIC PANL Collected: 06/28/2024 7:44 PM Status: COMPLETED Source: [facility] TYPE CODE TESTS RESULT OUT OF RANGE REFERENCE UNITS LAB NA(LOINC) SODIUM 139 134-146 mmol/L LAB K(LOINC) POTASSIUM 4.0 3.5-5.0 mmol/L LAB CL(LOINC) CHLORIDE 103 98-109 mmol/L LAB CO2(LOINC) CARBON DIOXIDE 26 22-32 mmol/L LAB AGAP(LOINC) ANION GAP 10 5-15 mmol/L LAB BUN(LOINC) BLOOD UREA NITROGEN 30 High 5-23 mg/dL LAB CRET(LOINC) CREATININE 1.04 High 0.40-1.00 mg/dL Result Comment: METHOD TRACE ABLE TO IDMS STANDARD LAB GLU(LOINC) GLUCOSE 218 High 65-99 mg/dL LAB CA(LOINC) CALCIUM 9.1 8.5-10.5 mg/dL LAB EGFR(LOINC) eGFR (CKD-EPI) NON-RACE DEPENDENT 68 >59 ml/min/1. 73sq.m Result Comment: Reported eGFR is based on the CKD-EPI 2020 equation that does not use a race coefficient. Performed By: #### DACIA DURBIN , 66081-5, 35656-8 #### [facility] ([id number]) [address] [place] [address] 93810 TROPONIN I, HIGH SENSITIVITY Collected: 7:44 PM Status: COMPLETED Source: [facility] TYPE CODE TESTS RESULT OUT OF RANGE REFERENCE UNITS LAB TNIHS(LOINC) TROPONIN I, HIGH SENSITIVITY 32 High <16 ng/L Result Comment: Elevations of hs-Troponin may be due to causes other than myocardial ischemia. Recommend serial hs-Troponin testing be performed. For the initial evaluation and management of chest pain patients, refer to the algorithms linked below. Emergency Patient: [email or web address]://www.Book of [employer]ds/dv/dl.[email or web address]=[email or web address] Inpatient: [email or web address]://www.[employer]/dv/dl.aspx?[email or web address]&c=04458&uh=acaea Performed By: #### DACIA DURBIN , 99709-7, 69477-5 #### [facility] ([id number]) [address] [place] [address] 85062 D DIMER Collected: 7:44 PM Status: COMPLETED Source: [facility] TYPE CODE TESTS RESULT OUT OF RANGE REFERENCE UNITS LAB DDMR(LOINC) D DIMER 220 <255 ng/mL DDU Result Comment: Results <255 ng/mL DDU: The presence of a VTE can safely be excluded with a negative D-Dimer result and Wells score. A negative result doesn't exclude the possibility of DIC. The test be repeated along with other diagnostic tests if the patient's symptoms persist or worsen. [email or web address].Book of [employer]ds/dv/dl.[email or web address]&uh=[email or web address] Performed By: #### DACIA DURBIN , 74414-3, 95960-4 #### [facility] ([id number]) [address] [place] [address] 13179 POC CHEM7 Collected: 06/26/2024 8:06 AM S tatus: COMPLETED Source: [facility] TYPE CODE TESTS RESULT OUT OF RANGE REFERENCE UNITS LAB SABINO(LOINC) PORTABLE SODIUM 140 134-146 mmol/L LAB IK(LOINC) PORTABLE POTASSIUM 4.3 3.5-5.0 mmol/L LAB ICL(LOINC) PORTABLE CHLORIDE 99 98-109 mmol/L LAB ICO2(LOINC) PORTABLE CO2 30 22-32 mmol/L LAB IGLU(LOINC) PORTABLE GLUCOSE 128 High 65-99 mg/dL LAB IBUN(LOINC) PORTABLE BUN 28 High 6-23 mg/dL LAB ICRET(LOINC) PORTABLE CREATININE 0.9 0.4-1.0 mg/dL Result Comment: METHOD TRACE ABLE TO IDMS STANDARD LAB IEGFR(LOINC) eGFR (CKD-EPI) NON-RACE DEPENDENT 81 >59 ml/min/1. 73sq.m Result Comment: Reported eGFR is based on the CKD-EPI 2020 equation that does not use a race coefficient. Performed By: #### IELGBC ## ## [facility] ([id number]) [address] [place] [address] COMPLETE BLOOD COUNT Collected: 06/26/2024 8:05 AM Status: COMPLETED Source: [facility] TYPE CODE TESTS RESULT OUT OF RANGE REFERENCE UNITS LAB WBC(LOINC) WBC COUNT 6.5 4.0-11.0 X10E9/L LAB RBC(LOINC) RBC COUNT 4.46 3.80-5.20 X10E12/L LAB HGB(LOINC) HEMOGLOBIN 12.9 11.7-15.5 g/dL LAB HCT(LOINC) HEMATOCRIT 38.8 35-47 % LAB MCV(LOINC) MCV 87 80-100 fL LAB MCH(LOINC) MCH 29.0 27-34 pg LAB MCHC(LOINC) MCHC 33.2 32-36 g/dL LAB RDW(LOINC) RDW 14.2 11.5-15.0 % LAB PLTC(LOINC) PLATELET COUNT 210 150-450 X10E9 /L LAB MPV(LOINC) MPV 6.9 Low 7-12 fL Performed By: #### CBC #### [facility] ([id number]) [address] [place] [address] CODING SUMMARY Observed: 06/20/2024 2:08 PM Status: F Source: [facility] HTMLBase 64 [id number] ZXJu [file] [id number]+[id number]== INPATIENT PATIENT SUMMARY Observed: 06/04 11:05 AM Status: C Source: [place] [address] Patient Discharge Instructions Name: YAMILA LOZADA : 1980 Patient Address: [address] [place] [address] Primary Care Provider: Name: DIAZ BETTS After you are discharged if you find you have any questions, please, call [phone] ext [phone] to speak to a nurse. Discharge Diagnosis: Carpal tunnel syndrome, right Prescription Information: If you have been given a prescription for narcotics, seek immediate medical attention if you have any difficulty breathing or any sudden status changes such as confusion and sleepiness. If you or anyone you know is experiencing suicidal thoughts, mental health, alcohol and/or drug addiction problems; contact the [facility] 27/03 Crisis Hotline -Text 4HINP wj [phone]. If you received any narcotics, sedation, or [...] business decisions or sign any legal documents [facility] would like to thank you for allowing us to assist you with your healthcare needs. The following includes patient education materials and information regarding your injury/illness. YAMILA LOZADA has been given the following list of follow-up instructions, prescriptions, and patient education materials: Follow-up Instructions With: Address: When: Rosenda Snowden [address] [place] [address] Business (1) 06/24/2024 10:15 AM [...] every day. Durable Medical Equipment for Prescription ([employer] CEDRIC SENSOR 14D) APPLY 1 SENSOR TO BACK OF UPPER ARM. REMOVE AND REPLACE EVERY 14 DAYS. fluticasone/umeclidinium/vilanterol (Trelegy Ellipta 200 mcg-62.5 mcg-25 mcg/inh inhalation [...] every day. Durable Medical Equipment for Prescription ([employer] CEDRIC SENSOR 14D) APPLY 1 SENSOR TO BACK OF UPPER ARM. REMOVE AND REPLACE EVERY 14 DAYS. fluticasone/umeclidinium/vilanterol (Trelegy Ellipta 200 mcg-62.5 mcg-25 mcg/inh inhalation [...] Milliliter Subcutaneous (under the skin) Every Monday. Take only the medications listed above. Contact your doctor prior to taking any medications not on this list. Diet & Activity Patient Activity Level: Patient Diet: Patient Activity Restrictions: Comment: Patient education materials, if any, will display below DR. MILLER'S POST OPERATIVE CARPAL TUNNEL INSTRUCTIONS: SURGEON'S WRITTEN INSTRUCTIONS: 1. Keep your hand elevated above your elbow for the first 24 hours after surgery. 2. Wiggle your fingers frequently while awake. 3. DO NOT lift heavy objects or global product manager forcefully with your hand. 4. Change your [...] or concerns, please call the office at [phone]. 7. Follow up as scheduled. Viruses or Bacteria What?s got you sick? Antibiotics only treat bacterial infections. Viral illnesses cannot be treated with antibiotics. When an antibiotic is not prescribed, ask your healthcare professional for tips on how to relieve symptoms and feel better. Usual Cause Illness Viruses Bacteria Antibiotic Needed Cold/Runny Nose NO Bronchitis/Chest Cold (in otherwise healthy children and adults) NO Whooping Cough Yes Flu NO Strep Throat Yes Sore Throat (except strep) NO Fluid in the middle ear (otitis media with effusion) NO Urinary Tract Infection Yes Antibiotics Aren?t Always the Answer www.cdc.gov/getsmart GET SMART Know When Antibiotics Work [place] Department of Health and Human Services Centers for Disease Control and Prevention May 2014 PATIENT HANDOUT Observed: 06/17/2024 11:05 AM Status: C Source: [facility] DR. MILLER'S POST OPERAT PRERNA CARPAL TUNNEL INSTRUCTIONS: SURGEON'S WRITTEN INSTRUCTIONS: 1. Keep your hand elevated above your elbow for the first 24 hours after surgery. 2. Wiggle your fingers frequently while awake. 3. DO NOT lift heavy objects or global product manager forcefully with your hand. 4. Change your [...] or concerns, please call the office at [phone]. 7. Follow up as scheduled. INPATIENT CLINICAL SUMMARY Observed: 11:05 AM Status: C Source: [facility] SURGERY Clinical Discharge Summary PERSON INFORMATION Name YAMILA LOZADA Age 43 Years 1980 Sex FEMALE Language Uzbek PCP DIAZ BETTS Marital Status Phone Med Service Ambulatory Surgery N [id number] Acct# Arrival 06/17/2024 08:13:31 Visit Reason SURGERY - RIGHT CARPAL TUNNEL RELEASE Acuity LOS 171 20:16 Address: [address] [place] [id number] Comment: PROVIDER INFORMATION VITALS INFORMATION Vital Sign [...] every day. Durable Medical Equipment for Prescription ([employer] CEDRIC SENSOR 14D) APPLY 1 SENSOR TO BACK OF UPPER ARM. REMOVE AND REPLACE EVERY 14 DAYS. fluticasone/umeclidinium/vilanterol (Trelegy Ellipta 200 mcg-62.5 mcg-25 mcg/inh inhalation [...] every day. Durable Medical Equipment for Prescription ([email or web address] SENSOR 14D) APPLY 1 SENSOR TO BACK OF UPPER ARM. REMOVE AND REPLACE EVERY 14 DAYS. fluticasone/umeclidinium/vilanterol (Trelegy Ellipta 200 mcg-62.5 mcg-25 mcg/inh inhalation [...] Milliliter Subcutaneous (under the skin) Every Monday. Medications to Continue That Have Not Changed [...] every day. Durable Medical Equipment for Prescription (ConcentraE SENSOR 14D) APPLY 1 SENSOR TO BACK OF UPPER ARM. REMOVE AND REPLACE EVERY 14 DAYS. fluticasone/umeclidinium/vilanterol (Trelegy Ellipta 200 mcg-62.5 mcg-25 mcg/inh inhalation [...] Milliliter Subcutaneous (under the skin) Every Monday. Medications to Continue That Have Not Changed [...] every day. Durable Medical Equipment for Prescription (ConcentraE SENSOR 14D) APPLY 1 SENSOR TO BACK OF UPPER ARM. REMOVE AND REPLACE EVERY 14 DAYS. fluticasone/umeclidinium/vilanterol (Trelegy Ellipta 200 mcg-62.5 mcg-25 mcg/inh inhalation [...] Milliliter Subcutaneous (under the skin) Every Monday. Comment: Lab and Radiology Results Laboratory or Other Results This Visit (last charted value for your 06/17/2024 visit) Chemistry 06/17/2024 9:16 AM Glucose, POC: 43 mg/dL -- Normal range between ( 74 and 118 ) DIET & ACTIVITY Patient Activity Level: Patient Diet: Patient Activity Restrictions: DISCHARGE INFORMATION Discharge Disposition: Discharge Location: DEPART REASON INCOMPLETE INFORMATION PATIENT EDUCATION INFORMATION Instructions: Paul- Post Op Carpal Tunnel (CUSTOM) Follow up: With: Address: When: Rosenda Snowden [address] [place] [address] [facility] (1) 06/24/2024 10:15 AM DIAGNOSIS Carpal tunnel syndrome, right Comment: PHYS DOC NOTES ANESTHESIA NOTE Observed: 06/17/2024 10:47 AM Status: F Source: [facility] Patient: YAMILA LOZADA Age: 43 years Sex: FEMALE : 1980 Associated Diagnoses: None Author: Olivier Lares MD Postoperative Information Post Operative Note: Operative Day. Anesthetic utilized: Monitored anesthesia care. Health Status Allergies: Allergic Reactions (All) Moderate Bactrim- Rash. Canceled/Inactive Reactions (All) No known allergies Problem list: All Problems Anxiety / SNOMED CT 61688122 / Confirmed Chronic hypoxic respiratory failure / SNOMED CT 9501468376 / Confirmed Depression / SNOMED CT 57591217 / Confirmed Developmental delay / SNOMED CT 453765319 / Confirmed Diabetes / SNOMED CT 624385932 / Confirmed GERD (gastroesophageal reflux disease) / SNOMED CT 595943634 / Confirmed High blood cholesterol / SNOMED CT 22122666 / Confirmed HTN (hypertension) / SNOMED CT 6702251331 / Confirmed Irritable bowel syndrome (IBS) / SNOMED CT 91664284 / Confirmed Pulmonary nodule / SNOMED CT 7252628244 / Confirmed Obesity / SNOMED CT 1229939871 / Confirmed Physical Examination Vital Signs (last 24 hrs) Last Charted Temp Temporal L 36 DegC (JUN 17 08:40) Heart Rate Monitored 79 bpm (JUN 17 10:40) Resp Rate 1 br/min (JUN 17 10:45) SBP 96 mmHg (JUN 17:39) DBP 57 mmHg (JUN 17:39) Review / Management Condition: Stable. Assessment Anesthetic outcome No anesthetic complications noted. Adequate pain relief. awake, answers questions, no pain, VSS, adequate hydration, Glucose=69. No Complaint of nausea and vomiting. Plan Transfer/ Discharge: Patient can be discharged from PACU when criteria met. Condition good. [Electronically Signed on: 06/17/2024 10:48 EDT] Olivier Lares MD[Verified on: 06/17/2024 10:48 EDT] Olivier Lares MD OPERATIVE REPORT - SURGEON/PHYSICIAN Observed: 06/17/2024 10:37 AM Status: F Source: [facility] Procedure: Decompression of median nerve right wrist with release [...] None [Electronically Signed on: 06/17/2024 10:38 EDT] Gary Miller DO[Verified on: 06/17/2024 10:38 EDT] Gary Miller DO [facility] [place] PRE[place]IVE REC[place] Observed: 06/17 10:29 AM Status: F Source: [facility] Pre-Op Record Summary Primary Physician: Gary Miller DO Finalized Date/Time: 06/17/24 13:04:23 Pt. Name: YAMILA LOZADA/Sex: 1980 FEMALE Med Rec #: [id number] Physician: Gary Miller DO Financial #: [id number] Pt. Type: D Room/Bed: / Admit/Disch: 06/17/24 08:13:31 - Institution: Pre-Op Case Times [facility] Pre-Care Text: Patient will be optimally prepared [...] Signed By: Jennyfer Gresham RN 06/17/24 13:04 [facility] INTRAOPERATIVE RECORD Observed: 10:29 AM Status: C Source: [facility] Intra-Op Record Summary Primary Physician: Gary Miller DO Finalized Date/Time: 06/20/24 08:21:54 Pt. Name: YAMILA LOZADA/Sex: 1980 FEMALE Med Rec #: [id number] Physician: Gary Miller DO Financial #: [id number] Pt. Type: D Room/Bed: / Admit/Disch: 06/17/24 08:13:31 - 06/17/24 11:42:00 Institution: Case Times [facility] Entry 1 Patient In Room Time 06/17/24 10:16:00 Out Room Time 06/17/24 10:43:00 Anesthesia Start Time 06/17/24 10:14:00 Stop Time 06/17/24 10:47:00 Surgery Start Time 06/17/24 10:29:00 Stop Time 06/17/24 10:39:00 Last Modified By: Jessica Ordonez RN 06/17/24 10:47:44 Case Attendance MAGR Entry 1 Entry 2 Entry 3 Case Attendee Gary Miller Robert M MD Kokinda, Diane RN Andrew DO Role Performed Surgeon - Primary Anesthesiologist of Parcel Post Order Clerk Record Time In 06/17/24 10:22:00 06/17/24 10:16:00 06/17/24 10:16:00 Time Out 06/17/24 10:37:00 06/17/24 10:43:00 06/17/24 10:43:00 Procedure Carpal Tunnel Carpal Tunnel Carpal Tunnel Release(Right) Release(Right) Release(Right) Last Modified By: Jessica Ordonez RN, Diane RN Kokinda, Diane RN 06/17/24 10:47:37 06/17/24 10:47:37 06/17/24 10:47:37 Entry 4 Entry 5 Case Attendee Heaven Lainez ConiGerri RESIDENTIAL PROPERTY CONSULTANT RESIDENTIAL PROPERTY CONSULTANT Role Performed Scrub Personnel Ripper Operator Time In 06/17/24 10:16:00 06/17/24 10:16:00 Time Out 06/17/24 10:43:00 06/17/24 10:43:00 Procedure Carpal Tunnel Carpal Tunnel Release(Right) Release(Right) Last Modified By: Jessica Ordonez RN, Diane RN 06/17/24 10:47:37 06/17/24 10:47:37 Surgical Procedures MAGR Pre-Care Text: A.20 Verifies operative procedure, surgical site, and laterality Im.150 Develops individualized plan of care Entry 1 Procedure Carpal Tunnel Release Primary Procedure Yes Primary Surgeon Gary Miller DO Surgeon Comment RIGHT CARPAL TUNNEL [...] Out Time 06/17/24 10:28:00 Participants Gerri Newberry RESIDENTIAL PROPERTY CONSULTANT, Jessica Ordonez RN Last Modified By: Jessica [...] Prep MAGR Pre-Care Text: A.30 Verifies allergies Im.270 Performs skin preparation Im.270.1 Implements protective measures to prevent skin and tissue injury due to chemical sources Entry 1 Skin Prep Syntegrity Prep Agents (Im.270) 7.5% Povidone-Iodine Prep By Jessica Ordonez RN Scrub 10% Povidone-Iodine [place] Prep Area (Im.270) Hand, Forearm Prep Area Details Right Skin Prep Agent Dry Yes Without Pooling Hair Removal Syntegrity Hair Removal Methods No hair removal performed Outcome Met (O.100) Yes Last Modified By: Jessica Ordonez RN 06/17/24 09:46:14 Post-Care Text: E.10 Evaluates for signs and symptoms of physical injury to skin and tissue O.100 Patient is free from signs and symptoms of chemical injury Counts Verification MAGR Pre-Care Text: A.20 Verifies operative procedure, surgical site, and laterality A.20.2 Assesses the risk for unintended retained foreign body Im.20 Performs required counts Entry 1 Procedure Carpal Tunnel Release(Right) Counts Verification Initial Counts Items included in Sponges, Sharps Initial Counts Manual the Initial Count Method Initial Counts Jessica Ordonez RN, Initial Count Time 06/17/24 10:02:00 Performed By Heaven Lainez RESIDENTIAL PROPERTY CONSULTANT Counts Verification Final Counts Items Included in Sponges, Sharps Final Count Method Manual Final Count Final Count Status Correct Final Counts Jessica Ordonez RN, Performed By Heaven aLinez RESIDENTIAL PROPERTY CONSULTANT Final Count Time 06/17/24 10:31:00 Surgeon notified of Yes final counts status Outcome Met (O.20) Yes Last Modified By: Jessica Ordonez RN 06/17/24 10:31:56 Post-Care Text: E.50 Evaluates results of the surgical count O.20 Patient is free from unintended retained foreign objects Tourniquet MAGR Pre-Care Text: A.240 Assesses baseline skin condition Im.120 Implements protective measures to prevent skin or tissue injury due to mechanical sources Entry 1 Tourniquet Type TOURNQUET/AC OR2 (3603) Cuff Size 18 in Serial Number 3603 Setting 250 mmHg Placement Arm upper Padding (Im.120) Yes Placement Details Right Tourniquet Times Inflated 06/17/24 10:28:00 Deflated 06/17/24 10:37:00 Total Time 9 Applied By Gerri Newberry CSFDesire RESIDENTIAL PROPERTY CONSULTANT Removed By Gerri Newberry RESIDENTIAL PROPERTY CONSULTANT Outcome Met (O.60) Yes Last Modified By: Jessica Ordonez RN 06/17/24 10:38:08 Post-Care Text: E.10 Evaluates for signs and symptoms of physical injury to skin and tissue O.60 Patient is free from sign and symptoms of injury caused by extraneous objects Dressing/Packing MAGR Pre-Care Text: A.350 Assesses susceptibility for infection Im.290 Administer care to wound sites Entry 1 Skin Prep Agent Yes Site Hand Removed Prior to Dressing? Site Details Right Dressing Item Details Dressing Item 4x4's, Non-adhesive Tape (Im.290) Elastic Sports Bandage (Im.290) dressing Outcome Met Yes Last Modified By: Jessica Ordonez RN 06/17/24 09:47:50 Post-Care Text: E.200 Evaluates progress of wound healing O.200 Patient's wound perfusion is consistent with or improved from baseline levels Departure from OR MAGR Entry 1 Present on Depart N/A Via Stretcher Post-op Destination PACU II Skin DFO Condition Dry Description Condition Warm Description Report Given To Jennyfer Gresham RN Airway Maintenance Patient Status Stable Oxygen in Use? No Airway Device Simple mask Flow Rate 8 Last Modified By: Jessica Ordonez RN 06/17/24 09:48:28 Fire Risk Assessment MAGR Entry 1 Fire Risk Assessment Score A: Is an No B: Is the operative No alcohol-based skin or other invasive antiseptic or other procedure being flammable solution performed above the being used xiphoid process or preoperatively? in the oropharynx? C: Is open oxygen Yes D: Is an ESU, No or nitrous oxide laser, or being administered? fiber-optic light being used? E: Are there other No possible contributors? Last Modified By: Jessica Ordonez RN 06/17/24 09:48:41 Case Comments <None> Finalized By: Jessica Ordonez RN Document Signatures Signed By: Christen Chan RN 06/18/24 08:48 Jessica Ordonez RN 06/17/24 10:47 Jessica Ordonez RN 06/20/24 08:21 Unfinalized History Date/Time Username Reason for Unfinalizing Freetext Reason for Unfinalizing 06/18/24 08:48 [email or web address] Correct Documentation CHANGE LEVEL TO A 3 06/20/24 08:21 [email or web address] Correct Documentation MAGR POSTOPERATIVE RECORD Observed: 06/04 10:29 AM Status: C Source: [facility] Phase II Record Summary Primary Physician: Gary Miller DO Finalized Date/Time: 07/16/24 07:39:56 Pt. Name: YAMILA LOZADA /Sex: 1980 FEMALE Med Rec #: [id number] Physician: Gary Miller DO Financial #: [id number] Pt. Type: D Room/Bed: / Admit/Disch: 06/17/24 08:13:31 - 06/17/24 11:42:00 Institution: Phase II Case Times [facility] Pre-Care Text: Patient is free from s/s [...] minute in order for charges to drop. ANESTHESIA NOTE Observed: 06/17/2024 10:13 AM Status: F Source: [facility] Patient: YAMILA LOZADA Age: 43 years Sex: [...] mg = 1 tab(s), Oral, Daily FREESTYLE CEDRIC SENSOR 14D Insulin Aspart FlexPen 100 units/mL [...] list: All Problems Anxiety / SNOMED CT 95844800 / Confirmed Chronic hypoxic respiratory failure / SNOMED CT 8301978726 / Confirmed Depression / SNOMED CT 85666754 / Confirmed Developmental delay / SNOMED CT 429827994 / Confirmed Diabetes / SNOMED CT 556142827 / Confirmed GERD (gastroesophageal reflux disease) / SNOMED CT 541958322 / Confirmed High blood cholesterol / SNOMED CT 12340328 / Confirmed HTN (hypertension) / SNOMED CT 1479926403 / Confirmed Irritable bowel syndrome (IBS) / SNOMED CT 78465259 / Confirmed Pulmonary nodule / SNOMED CT 2530266154 / Confirmed Obesity / SNOMED CT 7435718747 / Confirmed Histories Family History: Heart attack Mother COPD (chronic obstructive pulmonary disease) Mother Procedure history: Carpal tunnel (098215452) on 09/25/2023 at 43 Years. Comments: 09/25/2023 8:27 Jennyfer Benoit RN left TL - Tubal ligation (521720120) on 03/31/2023 at 42 Years. Genital warts (209212995). Cholecystectomy (47612505). Decompression of ulnar nerve (452005032). Comments: 04/16/2024 10:03 MARZENA Shrestha RN, Kevin [...] Oriented. Review / Management Laboratory Results Plan Citizen Of [place] Society of Anesthesiologists (ASA) physical status classification: Class III. Anesthetic Preoperative Plan Anesthesia: Monitored anesthesia care. Anesthetic plan, risks, benefits, and alternatives discussed with the patient and/or family. Patient verbalized understanding. Informed consent was given. Consent was signed by the patient. [Electronically Signed on: 06/17/2024 10: EDT] Olivier Lares MD[Verified on: 06/17/2024 10:14 EDT] Olivier Lares MD POCT GLUCOSE LEVEL Collected: 9:16 AM Status: F Source: [facility] TYPE CODE TESTS RESULT OUT OF RANGE REFERENCE UNITS LAB 20960600(LOINC) Glucose, POC 43 Abnorma l Alert 74-118 mg/dL Result Comment: OPR_ID=IN_[facility] FLAG = False,Meter:[id number] Advanced Manufacturing Consultant:Jojo Dangelo Performed By: #### [id number] #### [facility] (DEFAULT) [address] [place] [address] HISTORY AND PHYSICAL Observed: 8:14 AM Status: F Source: [facility] [id number]#1.00OTGTIFF CONSENT FORMS Observed: 06/17/2024 8:13 AM Status: F Source: [facility] [id number]#1.00OTGTIFF OUTSIDE RECORDS Observed: 06/17/2024 8:13 AM Status: F Source: [facility] [id number]#1.00OTGTIFF DISCHARGE INSTRUCTIONS Observed: 8:13 AM Status: F Source: [facility] [id number]#1.00OTGTIFF PROGRESS NOTE - NURSE Observed: 06/14/20 10:48 AM Status: C Source: [facility] Pre-op call made- pt given a rrival time of 0800 on 06-17-2024. 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 [Electronically Signed on: 06/14/2024 10:52 EDT] Margaret Cuellar RN[Verified on: 06/14/2024 10:52 EDT] Margaret Cuellar RNDr Fullam concerned whether pt has hold her Mounjaro medication for a week- pt recalled and pt stated that last dose of her Mounjaro was on 06-03-2024. [Electronically Signed on: 06/14/2024 11:05 EDT] Margaret Cuellar RN ALLERGIES DATE TYPE / CODE NAME / CODE REACTION SEVERITY SOURCE 05/15/2025 Drug Allergy/34355 8002(SNOMED CT) clindamycin/F006 716135(RXNORM) Rash Unknown [facility] 05/15/2025 Drug Allergy/32276 8002(SNOMED CT) sulfamethoxazole /P935524665(RXNO RM) Rash Unknown [facility] 05/15/2025 Drug Allergy/51190 8002(SNOMED CT) trimethoprim/F00 3125096(RXNORM) Rash Unknown [facility] 12/13/2011 DRUG/24859490 3(SNOMED CT) SULFAMETHOXAZOLE -TRIMETHOPRIM Hives Med [facility] 12/13/2011 DRUG~NON-CBOR D/416740286(S NOMED CT) SULFAMETHOXAZOLE -TRIMETHOPRIM Hives~Itching~Othe r [facility] Ambulatory [facility] Drug/99256365 3(SNOMED CT) Bactrim 053786407 [facility] l ENCOUNTERS ADMIT/DISCHARGE ACCOUNT NUMBER ADMITTING ENCOUNTER CLASS LOCATION SOURCE 06/03/2025/06/03/20 [id number] Ambulatory Building:[facility] 05/26/2025/05/26/20 [id number] Ambulatory Building:NOM S [facility] OB [facility] 05/15/2025/05/15/20 25 [id number] [facility] 05/14/2025/05/14/20 25 [id number] Ambulatory Buildin A [facility] 05/06/2025 [id number] Ambulatory Building:PT H _[facility] 05/01/2025/05/01/20 [id number] [facility] 04/22/2025/04/22/20 25 [id number] [facility] 04/14/2025/04/14/20 25 [id number] Ambulatory Building:NOM S BCP OB [facility] 04/10/2025/04/11/20 25 [id number] Ambulatory Building:NOM [facility] 04/02/2025/04/02/20 [id number] [facility] 03/26/2025/03/26/20 25 [id number] Ambulatory Building:NOM SCIPT [facility] 03/21/2025/03/21/20 25 [id number] Ambulatory Building:NOM SCIPT [facility] EPIC 03/17/2025/03/17/20 25 [id number] Ambulatory Building:NOM S BCP OB [facility] EPIC 03/14/2025/03/14/20 25 [id number] Ambulatory Building:NOM S ORTHO [facility] EPIC 03/13/2025/03/13/20 25 [id number] Ambulatory Buildin A [facility] 02/25/2025/02/26/20 25 [id number] Ambulatory Building:FBO [facility] 02/25/2025/02/26/20 25 [id number] Ambulatory Building:[facility] EPIC 02/10/2025/02/11/20 25 [id number] Ambulatory Building:[facility] 02/03/2025/02/04/20 25 [id number] Ambulatory Building:PF _PF [facility] 01/03/2025/01/04/20 25 [id number] Ambulatory Buildin 4 [facility] 12/04/2024/12/05/19 25 [id number] Ambulatory Buildin A [facility] 11/07/2024/11/08/19 25 [id number] Ambulatory Building:[facility] 11/01/2024/11/01/19 25 [id number] Ambulatory Building:PFM _LAB [facility] 10/28/2024/10/28/19 25 [id number] Ambulatory Building:[facility] 10/27/2024/10/27/19 25 [id number] Emergency Building:PFM _EDRoom: 12Bed: 12 [facility] 10/09/2024/10/09/19 25 [id number] Ambulatory Building:[facility] 10/07/2024/10/07/19 25 [id number] Ambulatory Buildin 4 [facility] 09/12/2024/09/12/19 25 [id number] ALIYA SOLORZANO Inpatient Encounter Building:PFM _PERIOPRoom: POOLBed: POOL [facility] 09/05/2024/09/05/19 [id number] Ambulatory Building:PFM _PAT [facility] 08/21/2024/08/21/20 24 [id number] Ambulatory Buildin 80 [facility] 08/06/2024 [id number] Ambulatory Building:PF M _SLE [facility] 08/06/2024/08/06/20 24 [id number] Ambulatory Building:NOM S BCP OB [facility] 08/06/2024/08/06/20 24 [id number] Ambulatory Building:CWM FAMMED [facility] 07/30/2024/07/30/20 24 [id number] Ambulatory Building:PFM _LAB [facility] 07/21/2024/07/23/20 24 [id number] JACK HOLLAND Ambulatory Building:PF _ACUTERoom: 211Bed: 01 [facility] 07/18/2024/07/18/20 24 [id number] Ambulatory Buildin 4 [facility] 07/15/2024/07/15/20 24 [id number] Ambulatory Building:FBO [facility] 07/04/2024/07/04/20 24 [id number] Ambulatory Buildin 4 [facility] 06/28/2024/06/29/20 24 [id number] Emergency Building:PF _EDRoom: 8Bed: 08 [facility] 06/26/2024/06/26/20 24 [id number] LEONCIO SOTO Ambulatory Building:PTH _CVRRoom: CVU BAYBed: CVU [facility] 06/24/2024/06/24/20 24 [id number] Ambulatory Building:FBO [facility] 06/20/2024/06/20/20 24 [id number] Ambulatory Buildin 4 [facility] 06/17/2024/06/17/20 24 [id number] Gary Miller Terrance [facility] 06/13/2024/06/13/20 [id number] Ambulatory Buildin A [facility] PAYERS ENCOUNTER GUARANTOR PAYER SUBSCRIBER SOURCE 06/03/2025 YAMILA MYERS: [address] [address]Bhx: (HP) [place]: [id number] e Date:2020-12-03 YAMILA MYERS: [id number] [address] [place] [address] [facility] EPIC 05/26/2025 YAMILA FELIZB: [address] [address]Rpu: (HP) [place]: [id number] e Date:2020-12-03 YAMILA MYERS: [id number] [address] [place] [address] [facility] EPIC 05/15/2025 Yamila Lozada[address] [address]Wdw: (HP) Primary Insurance:MedicaidPo licy Number: [id number] e Date:2024-12-17 Yamila Myers: [id number] [address] [address]Zwu: (HP) [facility] 05/15/2025 Secondary Insurance:Self PayPolicy Number: Effective Date:2024-12-17 [facility]/2025 YAMILA MYERS: [address] [address]Pst: (HP) Primary Insurance:[place] MEDICAIDPolicy Number: [id number] e Date:2020-12-03 YAMILA MYERS: [id number] [address] [address] [facility] 05/06/2025 YAMILA MYERS: [facility] [address], [place] [address]Eoz: (HP) Primary Insurance:[place] MEDICAIDPolicy Number: [id number] e Date:2020-12-03 YAMILA MYERS: [id number] [facility] [address] [address] [facility] 05/01/[address] [address]Gog: (HP) Primary Insurance:Self PayPolicy Number: Effective Date:2024-12-17 [facility] 04/22/2025 YAMILA MYERS: [facility] [address], [place] [address]Csv: (HP) Primary Insurance[place]: [id number] e Date:2020-12-03 YAMILA MYERS: [id number] [facility] [address] [address] [facility] EPIC 04/14/2025 YAMILA MYERS: [facility] [address], [place] [address]Fqh: (HP) Primary Insurance:[place] Number: [id number] e Date:2020-12-03 YAMILA MYERS: [id number] [facility] [address] [address] [facility] EP[facility] 04/10/2025 YAMILA MYERS: [facility] [address] [place] [address], [place] [address]Vzn: (HP) Primary Insurance[place] Number: [id number] e Date:2020-12-03 YAMILA MYERS: [id number] [facility] [address] [address] [facility] EPIC 04/02/2025 YAMILA MYERS: [facility] [address], [place] [address]Dxt: (HP) Primary Insurance:[place]: [id number] e Date:2020-12-03 YAMILA FELIZB: [id number] [facility] [address] [address] [facility] EPIC 03/26/2025 YAMILA FELIZB: [facility] [address] [place] [address], [place] [address]Lyi: (HP) Primary Insurance:[place] Number: [id number] e Date:2020-12-03 YAMILA MYERS: [id number] [address] [place] [address] [facility] EPIC 03/21/2025 YAMILA FELIZB: [facility] [address] [place] [address], [place] [address]Ing: (HP) Primary Insurance:[place]: [id number] e Date:2020-12-03 YAMILA MYERS: [id number] [facility] [address] [address] [facility] EPIC 03/17/2025 YAMILA MYERS: [address] [address]Dif: (HP) Primary Insurance[place]: [id number] e Date:2020-12-03 YAMILA MYERS: [id number] [facility] [address], [place] [address] [facility] EPIC 03/14/2025 YAMILA MYERS: [facility] [address] [place] [address], [place] [address]Pvu: (HP) Primary Insurance[place]: [id number] e Date:2020-12-03 YAMILA MYERS: [id number] [facility] [address] [address] [facility] EPIC 03/13/2025 YAMILA MYERS: [facility] [address], [place] [address]Cyg: (HP) Primary Insurance:[place] MEDICAIDPolicy Number: [id number] e Date:2020-12-03 YAMILA MYERS: [id number] [facility] [address] [address] [facility] 02/25/2025 YAMILA MYERS: [address], [place] [address]Gpi: (HP) [place]: [id number] e Date:2020-12-03 YAMILA MYERS: [id number] [facility] [address] [address] [facility] EPIC 02/25/2025 YAMILA MYERS: [address], [place] [address]Kbd: (HP) [place]: [id number] e Date:2020-12-03 AYMILA MYERS: [id number] [place] [address] [facility] EPIC 02/10/2025 YAMILA MYERS: [address], [place] [address]Soc: (HP) [place]: [id number] e Date:2020-12-03 YAMILA MYERS: [id number] [facility] [address] [address] [facility] EPIC 02/03/2025 YAMILA MYERS: [address], [place] [address]Yra: (HP) [place] Insurance:[place] MEDICAIDPolicy Number: [id number] e Date:2020-12-03 YAMILA MYERS: [id number] [facility] [address] [address] [facility] 01/03/2025 YAMILA MYERS: [address], [place] [address]Cun: (HP) [place] Insurance[place] MEDICAIDPolicy Number: [id number] e Date:2017-01-31 YAMILA MYERS: [id number], [place] [address] [facility] 12/04/2024 YAMILA MYERS: [address], [place] [address]Der: (HP) [place] Insurance[place] MEDICAIDPolicy Number: [id number] e Date:2017-01-31 YAMILA MYERS: [id number] [address] [facility] 11/07/2024 YAMILA MYERS: [address], [place] [address]Ndd: (HP) [place]: [id number] e Date:2020-12-03 YAMILA MYERS: [id number] [address], [place] [address] [facility] 11/01/2024 YAMILA MYERS: [address], [place] [address]Zpm: (HP) [place] Insurance[place] MEDICAIDPolicy Number: [id number] e Date:2017-01-31 YAMILA MYERS: [id number] [address] [address] [facility] 10/28/2024 YAMILA MYERS: [address], [place] [address]Xwk: (HP) [place] Insurance:[place]: [id number] e Date:2020-12-03 YAMILA MYERS: [id number] [address], [place] [address] [facility] EPIC 10/27/2024 YAMILA FELIZB: [address], [place] [address]Nel: (HP) [place] Insurance[place] MEDICAIDPolicy Number: [id number] e Date:2017-01-31 YAMILA MYERS: [id number], [place] [address] [facility] 10/09/2024 YAMILA MYERS: [address], [place] [address]Fjq: (HP) [place] Insurance[place]: [id number] e Date:2020-12-03 YAMILA MYERS: [id number] [address], [place] [address] [facility] 10/07/2024 YAMILA MYERS: [address], [place] [address]Pph: (HP) [place] Insurance[place] MEDICAIDPolicy Number: [id number] e Date:2017-01-31 YAMILA MYERS: [id number] [address] [facility] 09/12/2024 YAMILA MYERS: [address], [place] [address]Tmo: (HP) [place] Insurance[place] MEDICAIDPolicy Number: [id number] e Date:2017-01-31 YAMILA MYERS: [id number], [place] [address] [facility] 09/05/2024 YAMILA MYERS: [address], [place] [address]Gsc: (HP) Primary Insurance:[place] MEDICAIDPolicy Number: [id number] e Date:2017-01-31 YAMILA MYERS: [id number], [place] [address] [facility] 08/21/2024 YAMILA MYERS: [address], [place] [address]Ity: (HP) Primary Insurance:[place] MEDICAIDPolicy Number: [id number] e Date:2017-01-31 YAMILA MYERS: [id number], [place] [address] [facility] 08/06/2024 YAMILA MYERS: [address], [place] [address]Yxb: (HP) Primary Insurance:[place] MEDICAIDPolicy Number: [id number] e Date:2017-01-31 YAMILA MYERS: [id number], [place] [address] [facility] 08/06/2024 YAMILA MYERS: [address], [place] [address]Kou: (HP) Primary Insurance:[place]: [id number] e Date:2020-12-03 YAMILA MYERS: [id number] [address], [place] [address] [facility] 08/06/2024 YAMILA MYERS: [address], [place] [address]Tza: (HP) Primary Insurance:[place]: [id number] e Date:2020-12-03 YAMILA MYERS: [id number] [address], [place] [address] [facility] 07/30/2024 YAMILA FELIZB: [address], [place] [address]Ysv: (HP) [place] Insurance[place] MEDICAIDPolicy Number: [id number] e Date:2017-01-31 YAMILA MYERS: [id number], [place] [address] [facility] 07/21/2024 YAMILA MYERS: [address], [place] [address]Xfh: (HP) [place] Insurance[place] MEDICAIDPolicy Number: [id number] e Date:2017-01-31 YAMILA MYERS: [id number], [place] [address] [facility] 07/18/2024 YAMILA MYERS: [address], [place] [address]Kee: (HP) [place] MEDICAIDPolicy Number: [id number] e Date:2017-01-31 YAMILA MYERS: [id number], [place] [address] [facility] 07/15/2024 YAMILA MYERS: [address], [place] [address]Ybo: (HP) Primary Insurance:[place]: [id number] e Date:2020-12-03 YAMILA MYERS: [id number] [address], [place] [address] [facility] 07/04/2024 YAMILA MYERS: [address], [place] [address]Ugu: (HP) Primary Insurance:[place] MEDICAIDPolicy Number: [id number] e Date:2017-01-31 YAMILA MYERS: [id number], [place] [address] [facility] 06/28/2024 YAMILA FELIZB: [address], [place] [address]Dbt: (HP) Primary Insurance:[place] MEDICAIDPolicy Number: [id number] e Date:2017-01-31 YAMILA MYERS: [id number], [place] [address] [facility] 06/26/2024 YAMILA MYERS: [address], [place] [address]Jnh: (HP) Primary Insurance[place] MEDICAIDPolicy Number: [id number] e Date:2017-01-31 YAMILA MYERS: [id number], [place] [address] [facility] 06/24/2024 YAMILA MYERS: [address], [place] [address]Fzm: (HP) [place] Insurance[place]: [id number] e Date:2020-12-03 YAMILA MYERS: [id number] [address], [place] [address] [facility] 06/20/2024 YAMILA MYERS: [address], [place] [address]Idd: (HP) [place] Insurance[place] MEDICAIDPolicy Number: [id number] e Date:2017-01-31 YAMILA MYERS: [id number], [place] [address] [facility] 06/17/2024 YAMILA MYERS: [address], [place] [address] Primary Insurance[place]Policy [place]: [id number] e Date:[id number] Name:MedicaidPO Amna Roque[address] [place], [place] [address], [place] [address]NM: YAMILA MYERS: [id number] [address] [place] [address]Dpk: () [facility] 06/13/2024 YAMILA MYERS: [address], [place] [address]Ptl: () Primary Insurance:[place] MEDICAIDPolicy Number: [id number] e Date:2017-01-31 YAMILA MYERS: [id number], [place] [address] [facility] PPG
[2025-06-05 09:14] LABS: Anion Gap 7.9; Blood Urea Nitrogen 25.0 mg/dL (7.0-18.0); Calcium 9.0 mg/dL (8.5-10.1); Carbon Dioxide 30.6 mmol/L (21.0-32.0); Chloride 98 mmol/L (98-107); Estimated GFR (African America >60 (>=60 mL/min/1.73m^2); Estimated GFR (Non-African Ame >60 (>=60 mL/min/1.73m^2); Glucose 393 mg/dL (74-106); Potassium 4.5 mmol/L (3.5-5.1); Sodium 132 mmol/L (136-145)
== END 2025-06-05 08:06 | disposition home or self-care (01) ==
LOC: LAB 08:06
PROVIDERS: PCP Family Medicine; Visit Provider Personal Emergency Response Attendant
DX: Z01.818 Encounter for other preprocedural examination (principal); N94.89 Other specified conditions associated with female genital organs and menstrual cycle; A63.0 Anogenital (venereal) warts
CPT/HCPCS: 36415; 80048; 93005

== ENCOUNTER 2025-07-02 12:04 | Outpatient (OUT) | payer MEDICAID, SELFPAY ==
--- OUTSIDE RECORDS SUMMARY | 2025-07-02 12:08 | XMS_ITS | Patient Health Record ---
Author Organization The [facility] [place] Address [address] [place] [address] Care Team Providers Care Head Nurse Name Role Phone Diaz Dalton MD Primary Care Provider Unavailab le Allergies Allergen (clinical drug ingredient) Drug/Non Drug Allergy documented on EMR Reaction Allergy Type Onset Date Status Augmentin XRUnknownDrug AllergyActivesulfamethoxazole / trimethoprimBactrimrash Drug AllergyActive Reason For Referral No Information Medications Medication SIG (Take, Route, Frequency, Duration) Notes Start Date End Date Status Vitamin D ActiveLevsinUnknownZoloftActiveLantus SoloStarActiveWellbutrinActiveoxyBUTYnin ActivePioglitazone HClActivePercocetUnknownMoviPrep 100 GMas directed Orally 40 mg x's3 days;30 mg x's 2 days;20 mg x's 1 day;10 mg x's3 daysActiveAcyclovir UnknownPrazosin HClActiveNovoLOGActivePotassium ChlorideUnknownAtorvastatin CalciumActiveProtonixActiveAtivanUnknownProAir HFAUnknownFurosemideUnknown TrulicityUnknownDicyclomine HClUnknownSUMAtriptanUnknownlamoTRIgineActive Social History Tobacco Use: Social History Observation Description Date Details (start date - stop date) Never Smoker NA - NA Tobacco Use/Smoking Question Answer Notes Patient is a nonsmoker Plan Of Treatment No Information Insurance Providers Payer Name Payer Address Payer Phone Subscriber Number Group Number Insured Name Patient Relationship to Insured Coverage Start Date Coverage End Date MEDICAID [place] ONLY [address] [place] [id number] Enid Miller - patient is the insured Medical (General) History Medical History History ICD Code Bilateral edema of lower extremity R60.0 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
--- OUTSIDE RECORDS SUMMARY | 2025-07-02 12:09 | XMS_ITS | Clinical Summary ---
Author Organization [facility] Address [address] [place] [address] Care Team Providers Care Regenerator Operator Name Role Phone Diaz Dalton MD Primary Care Provider [phone] Allergies Active AllergyReactionsCriticalityNoted DateComments Sulfamethoxazole-TrimethoprimHives,Svvavhy7512/13/2011 Medications MedicationSigDispense QuantityRefillsLast FilledStart DateEnd DateStatus acyclovir (Zovirax) 400 MG tablet every 12 (twelve) hoursActive traZODone (Desyrel) 150 MG tablet 1 (one) time each day at the same timeActive oxybutynin XL (Ditropan-XL) 15 MG 24 hr tablet Take 15 mg by mouth Daily06/19/2023ctive prazosin (Minipress) 2 MG capsule 06/19/2023ctive metoprolol tartrate (Lopressor) 50 MG tablet 07/31/2023ctive lanolin (Lansinoh) cream Indications:Nipple painApply topically if needed for dry skin 7 g 09/27/2023ctive Black Cohosh (Black Cohosh Hot Flash Relief) 40 MG capsule Indications:Hot flashes due to menopauseTake 1 each by mouth Daily 30 capsule 11011/02/2023ctive Trelegy Ellipta 200-62.5-25 MCG/ACT aerosol powder Inhale 1 puff in the morning.03/21/2024ctive fluconazole (Diflucan) 150 MG tablet Take 150 mg by mouth 1 (one) time03/25/2024ctive pantoprazole (ProtoNix) 40 MG EC tablet Indications:Gastroesophageal reflux disease without esophagitisTake 1 tablet by mouth once daily 30 tablet 4Active cyclobenzaprine (Flexeril) 10 MG tablet Indications:Spondylosis without myelopathyTAKE 1 TABLET BY MOUTH THREE TIMES DAILY NEEDED FOR MUSCLE SPASMS 60 tablet 4Active lamoTRIgine (LaMICtal) 200 MG tablet Indications:Mild episode of recurrent major depressive disorderTake 1 tablet (200 mg) by mouth at bedtime 90 tablet 4Active dicyclomine (Bentyl) 20 MG tablet Indications:Irritable bowel syndrome with diarrheaTAKE 1 TABLET BY MOUTH FOUR TIMES DAILY NEEDED 60 tablet 5Active ondansetron ODT (Zofran-ODT) 4 MG disintegrating tablet Indications:NauseaPLACE 1 TABLET ON TONGUE AND ALLOW TO DISSOLVE EVERY 6 HOURS NEEDED FOR NAUSEA OR VOMITING 30 tablet 5Active Continuous Glucose Sensor (FreeStyle Crystal 3 Sensor) misc Indications:Type 2 diabetes mellitus with hyperglycemia, with long-term current use of insulin ([facility])USE TO MONITOR BLOOD SUGAR DIRECTED. CHANGE SENSOR EVERY 14 DAYS. 2 each 5Active Continuous Glucose Supervisor Road Administrator (FreeStyle Crystal 3 [place]) device Indications:Type 2 diabetes mellitus with hyperglycemia, with long-term current use of insulin ([facility])1 Application continuously 1 each 5Active buPROPion XL (Wellbutrin XL) 300 MG 24 hr tablet Indications:Panic disorder without agoraphobiaTAKE 1 TABLET BY MOUTH ONCE DAILY 30 tablet 5Active insulin aspart FlexPen (NovoLOG) 100 UNIT/ML pen Indications:Type 2 diabetes mellitus with hyperglycemia, with long-term current use of insulin ([facility])INJECT SUBCUTANEOUSLY THREE TIMES A DAY PER SLIDING SCALE; *30 TO 40 UNITS DAILY* 15 mL 5Active nabumetone (Relafen) 500 MG tablet Indications:Carpal tunnel syndrome of left wristTake 1 tablet (500 mg) by mouth 2 (two) times a day as needed for moderate pain 60 tablet 5Active insulin pen needle (Droplet Pen [place]) 32G x 4 mm misc Indications:Type 2 diabetes mellitus with microalbuminuria, with long-term current use of insulin ([facility])Use as instructed 200 each 5Active lisinopril 2.5 MG tablet Indications:Chronic heart failure with preserved ejection fraction (HFpEF) ([facility]) TAKE 1 TABLET BY MOUTH DAILY 30 tablet 5Active atorvastatin (Lipitor) 40 MG tablet Indications:DyslipidemiaTake 1 tablet (40 mg) by mouth Daily 30 tablet 505/6Active cholecalciferol (Vitamin D-3) 50 MCG (1999) tablet Indications:Vitamin D deficiencyTAKE 2 TABLETS BY MOUTH DAILY 60 tablet 5Active SUMAtriptan (Imitrex) 25 MG tablet Indications:Migraine without aura and without status migrainosus, not intractableTAKE 1 TABLET BY MOUTH NEEDED 9 tablet 5Active insulin glargine (Semglee) 100 UNIT/ML pen Indications:Type 2 diabetes mellitus with hyperglycemia, with long-term current use of insulin ([facility])Inject 20 Units under the skin in the morning and 20 Units before bedtime. 15 mL 5Active LORazepam (Ativan) 1 MG tablet Indications:JOHN (generalized anxiety disorder)Take 1 tablet (1 mg) by mouth 3 (three) times a day as needed for anxiety 90 tablet 5Active citalopram (CeleXA) 40 MG tablet Indications:Mild episode of recurrent major depressive disorderTake 1 tablet (40 mg) by mouth Daily 30 tablet 5Active albuterol HFA 90 mcg/act inhaler Indications:SOB (shortness of breath)INHALE 2 PUFFS BY MOUTH EVERY 4 HOURS NEEDED FOR WHEEZING 8.5 g 5Active Blood Glucose Monitoring Suppl (True Metrix Meter) w/Device kit Indications:Type 2 diabetes mellitus with hyperglycemia, with long-term current use of insulin ([facility])Test daily 1 kit 5Active ofloxacin (Ocuflox) 0.3 % ophthalmic solution INSTILL 1 DROP INTO AFFECTED EYE X4/DAY DIRECTED START 3DAYS PRIOR TO SX,THEN IMMEDIATELY FOLLOWING SX EVERY HOUR W/A,THEN X4/DAY NEXT DAY TIL APPT *04/14* 5Active pioglitazone (Actos) 45 MG tablet 5Active prednisoLONE acetate (Pred-Forte) 1 % ophthalmic suspension INSTILL 1 DROP IN AFFECTED EYE EVERY HOUR WHILE AWAKE AFTER SURGERY THEN NEXT DAY 4 TIMES DAILY UNTIL APPOINTMENT *EFFECTIVE 04/14*5Active furosemide (Lasix) 40 MG tablet Indications:Chronic heart failure with preserved ejection fraction (HFpEF) ([facility]) Take 1 tablet (40 mg) by mouth Daily 30 tablet 505Active empagliflozin (Jardiance) 25 MG Indications:Type 2 diabetes mellitus with hyperglycemia, with long-term current use of insulin ([facility])Take 1 tablet (25 mg) by mouth Daily 30 tablet 505Active ibuprofen 800 MG tablet Indications:Pelvic pain in femaleTAKE 1 TABLET BY MOUTH EVERY 6 HOURS IF NEEDED FOR MILD PAIN FOR UP TO 30 DOSES 30 tablet 5Active Dulaglutide (Trulicity) 1.5 MG/0.5ML solution auto-injector Indications:Type 2 diabetes mellitus with hyperglycemia, with long-term current use of insulin ([facility])Inject 1.5 mg under the skin 1 (one) time per week 2 mL 5Active ondansetron (Zofran) 4 MG tablet Indications:NauseaTAKE 1 TABLET BY MOUTH EVERY 6 HOURS NEEDED FOR NAUSEA OR VOMITING 30 tablet 5Active Continuous Glucose Sensor (FreeStyle Crystal 3 Sensor) misc Indications:Type 2 diabetes mellitus with hyperglycemia, with long-term current use of insulin ([facility])USE TO MONITOR BLOOD SUGAR DIRECTED. CHANGE SENSOR EVERY 14 DAYS. 1 each 5Active Misc. Devices misc Indications:Acute medial meniscus tear of left knee, initial encounter,Internal derangement of left kneeDispense: Front Wheeled walker use 90 days. Ht: 5'1 Weight: 206lb 1 Units 5Active Misc. Devices misc Indications:Pre-op examinationDispense: Front Wheeled walker use 90 days. Ht: 5'1 Weight: 206 1 Units 51Discontinued(Entered in error) Active Problems ProblemNoted DateDiagnosed DateEncounter for long-term (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 daiwlrvwnyf12/09/1916Nlxkihvvfzj74/24/2025 Assessment & Plan (10/28/2024 2:54 PM EST): Improved after IV fluids and monitor. Continue with increased fluid intake. Nausea & joezhdat02/24/2025 Assessment & Plan (10/28/2024 2:54 PM EST): Use zofran PRN. Pulmonary ylyfjdgzmuqd11/03/2024 Assessment & Plan (08/06/2024 12:07 PM EST): Continued SOB and follow with specialists. Moderate persistent asthma without zzowipemfpiw59/17/2024Type 2 diabetes mellitus with hyperglycemia, with long-term current use of gmxodts3202/12/2024 Assessment & Plan (02/10/2025 2:01 PM EDT): [...] ADA diet and limit carbs. Obesity hypoventilation /02/2024 Assessment & Plan (02/12/2024 3:23 PM EDT): Seen by pulmonology and complete testing. Follow up as scheduled. Assessment & Plan (01/04/2024 12:33 PM EDT): Recent hypoxia likely related to weight. Need to change diet and lose weight. Benign essential jlcfvovnshjm61/02/2024 Assessment & Plan (02/10/2025 1:59 PM EDT): BP controlled and monitor PRN. Assessment & Plan (01/04/2024 12:34 PM EDT): BP elevated but no history of HTN. Monitor PRN. Right carpal tunnel /02/2024 Assessment & Plan (05/29/2024 11:15 AM EDT): Continued pain and follow with ortho. Assessment & Plan (05/31/2024 12:19 PM EDT): Able to proceed with upcoming surgery at low to 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 risk of complications. DM improved andno CAD or HTN. Cleared by pulmonology. Reviewed echo and the results are normal. Recommend routine PAT. Assessment & Plan (01/04/2024 12:34 PM EDT): Patient needs to have surgery but currently not cleared. Need evaluation by pulmology and needs to improve BS prior to surgery. Contracture, unspecified ankle04/06/2023hronic heart failure with preserved ejection fraction (HFpEF)04/06/2023 Assessment & Plan (02/10/2025 1:59 PM EDT): [...] Elevate legs PRN. Equinus deformity of left foot04/06/2023astroesophageal reflux disease 04/06/2023 Assessment & Plan (11/07/2024 10:47 AM EST): Symptoms controlled with protonix and continue. Assessment & Plan (02/12/2024 3:22 PM EDT): Symptoms controlled with protonix and continue. Assessment & Plan (11/02/2023 4:10 PM EST): Symptoms controlled with protonix and continue. Genital warts04/06/2023Hot flashes due to tjzxwesct22/03/2023Type 2 diabetes mellitus with microalbuminuria, with long-term current use of jhxvbeb5704/06/2023 Assessment & Plan (05/29/2024 11:14 AM EDT): [...] and sliding scale. Internal derangement of left qcyblmkm21/03/2023Irritable bowel syndrome with pqpolfio20/03/2023 Assessment & Plan (02/12/2024 3:22 PM EDT): Occasional symptoms and use bentyl PRN. Assessment & Plan (11/02/2023 4:10 PM EST): Occasional symptoms and use bentyl PRN. Migraine without aura and without status migrainosus, not ezpkxuiiqcy82/03/2023 Assessment & Plan (11/02/2023 4:11 PM EST): CARPIO stable and continue medication. Use imitrex PRN. Mild episode of recurrent major depressive hylbbhlw13/03/2023 Assessment & Plan (02/10/2025 2:00 PM EDT): [...] controlled with medication and continue. Osteoarthritis of knee04/06/2023 Assessment & Plan (02/10/2025 2:00 PM EDT): Unsteady when moving and script for rolling walker to patient. Overactive vkmwfjf3704/06/2023lass 3 severe obesity due to excess calories with serious comorbidity and body mass index (BMI) of40.0 to 44.9 in adult11/21/2022 Assessment & Plan (02/10/2025 1:59 PM EDT): Weight loss indicated. Assessment & Plan (11/07/2024 10:47 AM EST): Weight loss indicated. Assessment & Plan (10/28/2024 2:55 PM EST): Weight loss indicated. Mild developmental delay09/29/2021Type 2 diabetes mellitus with polyneuropathy 06/10/2021pondylosis without pnmrzxewus81/07/2010 Assessment & Plan (05/13/2024 2:50 PM EDT): Increased pain and start flexeril. Xdfyamuthtqf50/19/2010Panic disorder without rmyqwpdckij34/11/2010llergic rhinitis due to oruwgoep63/28/2010GAD (generalized anxiety disorder)10/01/2009 Assessment & Plan (02/10/2025 2:00 PM EDT): [...] continue. Use ativan PRN. Obstructive sleep apnea vydjiphk48/27/2010 Resolved Problems ProblemNoted DateDiagnosed DateResolved DateAcute pain of right knee05/29/2024 08/06/2024 Assessment & Plan (05/29/2024 11:14 AM EDT): Recent fall and continued pain. X-ray negative. Start PT and ice PRN. Continue relafen and flexeril. Chronic hypoxic respiratory nfxolvw95 Assessment & Plan (10/28/2024 2:55 PM EST): On home oxygen and follow with pulmonology. Assessment & Plan (08/06/2024 12:07 PM EST): On home oxygen and follow with pulmonology. Assessment & Plan (05/13/2024 2:49 PM EDT): On home oxygen and follow with pulmonology. Iznvjwl10/02/2025 Assessment & Plan (01/04/2024 12:33 PM EDT): Recent hypoxia and likely related to obesity and elevated BS. Scheduled with pulmonology for testing and will need cleared for surgery. Cavitary lesion of lung/05/2024 Assessment & Plan (08/10/2023 2:57 PM EST): Lesion noted on recent CT and prior biopsy. Check PET scan and refer to CT surgeon. Use norco PRN for pain. Other chest pain/ Assessment & Plan (08/10/2023 2:58 PM EST): Continued pain and workup for CAD normal. Use norco PRN and follow up with CT surgeon. Acute pain of left hcmmldat64/arpal tunnel syndrome of left wrist/05/2024 Assessment & Plan (02/12/2024 3:21 PM EDT): Able to proceed with surgery at low risk for complications. Reports BS improved and will monitor A1C. Needs clearance from pulmonology. Other chronic pain/03/2023Missed //3Cubital tunnel syndrome on left/03/2023 Overview (04/06/2023): Added automatically from request for surgery [id number] Acute kidney injury (DREW) with acute tubular necrosis (ATN)/03/2023 High anion gap metabolic lftwyfac01/neumonia due to infectious sdrsleji30/KA, type 1, not at goal/03/2023Shoulder joint painHyperglycemiaFecal ghsvpjmqjkxz60oorly controlled diabetes ghmekpkl34/07/2015 08/10/2023Normal gynecologic elvjbrpaeyz14onvulsions in the reozowd94Mild intellectual jsvipgacdf35Type 2 diabetes hnumjjoi36 Encounters DateTypeDepartmentCare YgljTorufyloxcb12/10/2025Telephone [facility] [address] [place] [address] Renetta Simons MA Pixibkt6706/05/2025Orders Only [facility] [address] [place] [address] Renetta Simons MA Internal derangement of left knee (Primary Dx); Acute medial meniscus tear of left knee, initial /02/2025bstract [facility] [address] [place] [address] Sonal Mars MA 06/05/2025Telephone [facility] [address] [place] [address] Arlene Mullen LPN 06/05/2025Telephone [facility] [address] [place] [address] Jr. Leoncio Jackson DO Wants her medications after surgery to be called in at [facility]06/05/2025Results Follow-Up [facility] [address] [place] [address] Cholo Strong, ROSAURA ALL BASIC METABOLIC PANEL06/05/2025linisync Result Encounter [facility] External Department Unsolicited Erik Benz DO 06/05/2025linisync Result Encounter [facility] External Department Unsolicited Cholo Strong PA 06/04/2025Telephone [facility] [address] [place] [address] Jr. Leoncio Jackson, DO About her prescription for 2 wheel mhfmka5606/03/2025 1:30 PM EDTOffice Visit [facility] [address] [place] [address] Cholo Strong PA Pre-op examination (Primary Dx)06/03/2025[facility] [address] [place] [address] Renetta Simons MA Pre-op examination (Primary Dx)06/03/2025amboo flowsheet [facility] [address] [place] [address] Cholo Strong PA 06/03/20256105Webzlg68/25/2025Telephone [facility] [address] [place] [phone] Jr. Leoncio Jackson, DO ? pwqpvzj2805/26/2025 1:20 PM EDTConsult [facility] [address] [address] Erik Benz DO Pre-op examination; Pelvic pain; Genital warts; Pain of ovary05/02/2025Refill [facility] [address] [place] [address] Diaz Dalton MD Type 2 diabetes mellitus with hyperglycemia, with long-term current use of insulin ([facility])04/25/2025Refill [facility] [address] [place] [address] Romana Poole NP Uouamh5604/24/2025Results Follow-Up [facility] [facility] [address] [place] [address] Diaz Dalton MD ALL CBC WITH AUTO DIFF, MLR HEMOGLOBIN A1C, HMHP LIVER PANEL, Additional followed-up results: linisync Result Encounter [facility] External Department Unsolicited Provider, Generic External Data 04/24/2025linisync Result Encounter [facility] External Department Unsolicited Diaz Dalton MD 04/23/2025[facility]phone [facility] [address] [address] Jr. Leoncio Jackson, DO Medial aspect of her eye and nose04/22/2025 10:00 AM EDTOffice Visit [facility] [address] [place] [address] Jr. Leoncio Jackson, DO Acute pain of left knee (Primary Dx); Acute medial meniscus tear of left knee, initial ghgjjktef23/19/2025Telephone [facility] [address] [place] [address] Renetta Simons MA Cds Sales Advisor ( )04/22/2025amboo flowsheet [facility] [address] [place] [address] Jr. Leoncio Jackson, DO 04/22/20250235Lvmqsq87/17/2025Refill [facility] [address] [address] Erik Benz, DO Pelvic pain in aumcxc9304/14/2025 1:40 PM EDTOffice Visit [facility] [address] [address] Erik Benz, Pelvic pain in female (Primary Dx); Nausea; Genital warts04/14/2025amboo flowsheet [facility] [address] [address] Erik Benz, 04/10/2025 2:30 PM EDTTreatment [facility] [address] [place] [address] Puma Kelly PTA Acute pain of left knee (Primary Dx)04/10/2025amboo flowsheet [facility] [address] [facility] [address] [place] [address] Puma Kelly, TACK WELDER 04/10/20254641Pnzcum58/06/2025[facility] [address] [place] [address] Diaz Dalton MD Type 2 diabetes mellitus with hyperglycemia, with long-term current use of insulin (HCC) (Primary Dx); Chronic heart failure with preserved ejection fraction (HFpEF) (HCC)04/09/2025 [facility] [address] [place] [address] Diaz Dalton MD 04/07/2025Telephone [facility] [address] [facility] [address] [place] [address] Ubaldo Herzog, TACK WELDER Cx PT 04/07/2507 11:00 AM EDTTreatment [facility] [address] [facility] [address] [place] [address] Puma Kelly PTA Acute pain of left knee (Primary Dx)04/02/2025amboo flowsheet [facility] [address] [facility] [address] [place] [address] Puma Kelly, TACK WELDER 04/02/20253264Paofwj45/29/2025Refill [facility] [address] [place] [address] Diaz Dalton MD Type 2 diabetes mellitus with hyperglycemia, with long-term current use of insulin (HCC)from Last 3 Months Immunizations ImmunizationAdministration DatesNext DueInfluenza, injectable, quadrivalent, preservative free06/15/2020,05/20/2019,04/22/2017,05/13/2016,05/28/2015 Pneumococcal Conjugate PCV Tdap04/09/2021Tetanus toxoid, adsorbed 10/06/2009 Family History Medical HistoryRelationNameCommentsNo Known ProblemsBrotherAlzheimer's disease FatherDiabetesFatherHyperlipidemiaFatherHypertensionFatherStrokeFatherAsthma MotherextrinsicHypertensionMotherNo Known ProblemsSisterRelationNameStatus CommentsBrother1 brotherFatherDeceasedMaternal GrandfatherDeceasedMaternal GrandmotherDeceasedMotherAlivePaternal GrandfatherDeceasedPaternal Grandmother DeceasedSister1 sister Social History Tobacco UseTypesPacks/DayYears UsedDateSmoking Tobacco: NeverSmokeless Tobacco: Never Tobacco Cessation:Counseling Given: Not Answered Alcohol UseStandard Drinks/WeekCommentsNever0 (1 standard drink = 0.6 oz pure alcohol)Caffeine: 1-2 cups/day , mountain dew occasionallyCommentsNoSex and Gender InformationValueDate RecordedSex Assigned at BirthNot on fileLegal OeoXvqzmg87/15/2023 6:38 PM EDTGender IdentityNot on fileSexual OrientationNot on file Last Filed Vital Signs Vital SignReadingTime TakenCommentsBlood Grrrzucy379/8209 1:26 PM EDT Snpcs1926 1:23 PM KWOLjjfkvifiwc17.3 ??C (97.3 ??F)02/10/2025 1:23 PM EDTRespiratory Xppu190102/10/2025 1:23 PM EDTOxygen Xskhweznor38%02/10/2025 1:23 PM EDTInhaled Oxygen Concentration--Moxzcx05.4 kg (206 lb)06/03/2025 1:24 PM EDT Vkydny082.9 cm (5' 1 )06/03/2025 1:24 PM EDTBody Mass Index38.9209 1:24 PM EDT Plan of Treatment DateTypeDepartmentCare Team (Latest Contact Info)Pvelwpntige87/16/2025 2:00 PM ESTOffice Visit [facility] [address] [facility] [address] [phone] Erik Benz, DO [address] [facility] [facility] [address] [place], [place] [phone] 08/20/2025 1:40 PM ESTConsult [facility] [address] [facility] [place] [address] Erik Benz, DO [address] [facility] [place], [place] [phone] Health MaintenanceDue DateLast DoneCommentsCT Jhnvazjmahit1979FIT-DNA 1979FIT1979FOBT1979 1686Uwdmlrpjlotib1979Influenza Vaccine (#1), 05/20/2019, 04/22/2017, Additional history exists Ezfethwhc57, 06/30/2023, 06/22/2022HPV/Gzbegy9907/14/2027 Cervical Cancer Nbwztcgon63/03/2027Pap Smear, 08/01/2023, 07/14/20225884Dsxyaemfjtj36/09/720794/05/2025, 09/12/2024, 09/12/2024, Additional history existsColorectal Cancer Yawjaefnw34/09/2035 Procedures Procedure NamePriorityDate/TimeAssociated DiagnosisCommentsALL BASIC METABOLIC SINDSHwjjygo45/02/2025 8:59 AM EDT ECG 12-LEAD06/05/2025 6:56 AM EDT US PELVIS W/ ASGNFYQOPLPE11/21/2025 4:10 PM EDT [facility] MICROALB CREAT RATIO SQXXTXCizoeol29/21/2025 3:08 PM EDT ALL THYROID STIM TTHRPPIPagnvds85/21/2025 1:17 PM EDT ALL LIPID PROFILE (FASTING)Dwtmqsw7904/24/2025 1:17 PM EDT ALL BASIC METABOLIC FAJQJAduhdij51/21/2025 1:17 PM EDT HMHP LIVER OPFPWAheupdy19/21/2025 1:17 PM EDT MLR HEMOGLOBIN H0QRroarxn69/21/2025 1:17 PM EDT ALL CBC WITH AUTO FJTIDrsabsk09/21/2025 1:17 PM EDT PERLUASQSGKAegoiur20/09/2025 11:13 AM ESTPAP MHWKBXeeujtz88/03/2024 12:00 AM EST MM TOMOSYNTHESIS SCREENING BI06/30/2024 7:52 PM EDT from Last 3 Months or Most Recently Relevant to Health Maintenance Results * (ABNORMAL) ALL BASIC METABOLIC PANEL (06/05/2025 8:59 AM EDT) Only the most recent of2 resultswithin the time period is included. ComponentValueRef RangeTest MethodAnalysis TimePerformed AtPathologist Signature NXYQLV758(L)136 - 145 mmol/LTBHPOTASSIUM4.53.5 - 5.1 mmol/STQPCWODFDXY3208 - 107 mmol/LTBHCARBON TGHJVUU11.621.0 - 32.0 mmol/LTBHANION GAP7.4ZSYCTIWIHH150(H)74 - 106 mg/dLTBHBLOOD UREA CVAGMQLD60.0(H)7.0 - 18.0 mg/dLTBHCREATININE0.940.55 - 1.02 mg/dLTBHTBH EGFR-AF SYRIAN>60>=60 mL/min/1.73m 2TBHTBH EGFR-NON AF SYRIAN>60>=60 mL/min/1.73m 2TBHBUN CREATININE RATIO26.9PMJHIBRJIZ8.08.5 - 10.1 mg/dLTBHSpecimen (Source)Anatomical Location / LateralityCollection Method / VolumeCollection TimeReceived Time06/05/2025 8:59 AM EDT1 9:02 AM EDT Narrative [facility] - 06/05/2025 10:54 AM EDT Authorizing ProviderResult TypeResult StatusMattheandrea Strnog PACLINISYNCFinal ResultPerforming OrganizationAddressCity/State/ZIP CodePhone Number CLINISYNC [facility] * ECG 12-LEAD (06/05/2025 6:56 AM EDT)Anatomical RegionLateralityModalityOther Specimen (Source)Anatomical Location / LateralityCollection Method / Volume Collection TimeReceived Time06/05/2025 6:56 AM EDT Narrative 06/05/2025 11:48 AM EDT [facility] ?[address] ? [place] [address] ? Electrocardiograph Report ? Signed ? Patient: CARISSA LOZADA ?MR#: [id number] ?? : 1980 ?Acct:[id number] ?? Age/Sex: 44 / F ?ADM Date: 06/05/25 ?? Loc: PST ? Attending Dr: Erik Benz D.O. ? Ordering Physician: Erik Benz D.O. ?? Date of Service: 06/05/25 ?? Procedure(s): ECG 12 lead ?? Accession Number(s): [id number] ? cc: ?[facility] ? Test Date: ?2025-06-05 ?? Pat Name: ? CARISSA LOZADA ?Department: ? Room: ? - ?? Gender: ? Female ? Egyptologist: ? : ?1980 ? Requested By: ERIK BENZ ?? Order Number: [id number] ?Reading MD: ?? LEONCIO ??Bret TORRES ? Measurements ?? Intervals ?[place] ? Rate: ? 85 ? P: ?62 ?? [place]: ? 151 ?QRS: ?109 ?? QRSD: ? 89 ? T: ?82 ?? QT: ? 347 ? QTc: ?413 ? Interpretive Statements ?? SINUS RHYTHM ?? POSSIBLE RIGHT VENTRICULAR HYPERTROPHY [SOME/ALL OF: PROMINENT R IN V1, LATE ?? TRANSITION, RAD, LIAN, SSS] ?? MODERATE T-WAVE ABNORMALITY, CONSIDER ANTERIOR ISCHEMIA [-0.1+ mV T WAVE IN ?? V3/V4] ?? Abnormal ECG ?? Compared to ECG 03/16/2023 10:42:24 ?? T-wave abnormality now present ?? Possible ischemia now present ?? Electronically Signed On 06-05-2025 11:48:00 EDT by LEONCIO ??Bret TORRES ? Dictated By: ?LEONCIO TORRES ? Signed By: ?06/05/25 1148 ? DD/ 0656 ? TD/TT: ? Nurse Charge Rn: Procedure Note Radiology, Radiologist, - 06/05/2025 [place] [address] Electrocardiograph Report Signed Patient: CARISSA LOZADA RMR#: [id number] : 1980Acct:[id number] Age/Sex: 44 / FADM Date: 06/05/25 Loc: PST Attending Dr: Erik Benz D.O. Ordering Physician: Erik Benz D.O. Date of Service: 06/05/25 Procedure(s): ECG 12 lead Accession Number(s): [id number] cc: [facility] Test Date: 2025-06-05 Pat Name: CARISSA LOZADA Department: Room: - Gender: Female Egyptologist: : 1980 Requested By: ERIK BENZ Order Number: [id number] Reading MD: LEONCIO TORRES M.D. Measurements Intervals [place] Rate: 85 P: 62 AK: 151 QRS: 109 QRSD: 89 T: 82 QT: 347 QTc: 413 Interpretive Statements SINUS RHYTHM POSSIBLE RIGHT VENTRICULAR HYPERTROPHY [SOME/ALL OF: PROMINENT R IN V1,LATE TRANSITION, RAD, LIAN, SSS] MODERATE T-WAVE ABNORMALITY, CONSIDER ANTERIOR ISCHEMIA [-0.1+ mV T WAVEIN V3/V4] Abnormal ECG Compared to ECG 03/16/2023 10:42:24 T-wave abnormality now present Possible ischemia now present Electronically Signed On 06-05-2025 11:48:00 EDT by LEONCIO TORRES M.D. Dictated By: LEONCIO TORRES Signed By:06/05/25 1148 DD/ 0656 TD/TT: Nurse Charge Rn: Authorizing ProviderResult TypeResult StatusCorey Demar DOCLINISYNC IMAGINGFinal Result * US PELVIS W/ TRANSVAGINAL (04/24/2025 4:10 PM EDT)Anatomical RegionLaterality ModalityOtherSpecimen (Source)Anatomical Location / LateralityCollection Method / VolumeCollection TimeReceived Time04/24/2025 4:10 PM EDT Narrative 04/24/2025 4:19 PM EDT [facility] ?[address] ? [place] [address] ? Ultrasound Report ? Signed ? Patient: NEVILLE,CARISSA R ?MR#: [id number] ?? : 1980 ?Acct:[id number] ?? Age/Sex: 44 / F ?ADM Date: 08/21/25 ?? Loc: US ? Attending Dr: Romana Poole ? Ordering Physician: Romana Poole ?? Date of Service: 04/24/25 ?? Procedure(s): US pelvis w/ transvaginal ?? Accession Number(s): [id number] ? cc: Romana Poole; Diaz Dalton M.D. ? [facility] ? [address] ? [place] [address] ? Patient Name: ?? CARISSA LOZADA ? MRN: [facility]:[id number] ? date: 1980 ?Sex: F ?? Assigned Patient Location: US ?? Current Patient Location: MAMMO ?? Accession/Order Number: [id number] ?? Exam Date: 04/24/2025 ??13:27 ?Report Date: 04/24/2025 ??16:10 ? At the request of: ?? ROMANA ??MYRANDA ? Procedure: ??US pelvis w/ transvaginal ? Pelvic ultrasound ? HISTORY: Right-sided pelvic pain. ? Uterus is anteverted. ??Uterus measures 4.6 x 1.9 x 2.6 cm. ??The endometrium ?? has a total combined thickness of 3 mm. ??The ovaries not visualized. ??No ?? adnexal mass. ??No free fluid. ? US/US pelvis w/ transvaginal ?? IMPRESSION: Limited examination. ??Nonvisualization of the ovaries. ? Unremarkable anteverted uterus and endometrial complex. ??No adnexal mass or ?? free fluid ? Impression dictated by: Gallito Torres M.D. ??04/24/2025 4:10 PM ? Dictation Location: RADIO-PC-20 ? Electronically authenticated by: [id number] ??Y ?? Date: 04/24/2025 ??16:10 ? Dictated By: ?Gallito Torres D.O. ? Signed By: ?04/24/25 1619 ? DD/ 1610 ? TD/TT: ? Nurse Charge Rn: Procedure Note Radiology, Radiologist, MD - 04/24/2025 [facility] [place] [facility] [address] [place] [address] Ultrasound Report Signed Patient: CARISSA LOZADA RMR#: [id number] : 1980Acct:[id number] Age/Sex: 44 / FADM Date: 04/24/25 Loc: US Attending Dr: Romana Poole Ordering Physician: Romana Poole Date of Service: 04/24/25 Procedure(s): US pelvis w/ transvaginal Accession Number(s): [id number] cc: Romana Poole; Diaz Dalton M.D. The [address] [address] Patient Name: CARISSA LOZADA MRN: [id number] date: 1980 Sex: F Assigned Patient Location: US Current Patient Location: [facility] Accession/Order Number: [id number] Exam Date: 04/24/2025 13:27 Report Date: 04/24/2025 [...] Torres M.D. 04/24/2025 4:10 PM Dictation Location: [place] [address] Electronically authenticated by: [id number] Y Date: 6:10 Dictated By: Gallito Torres D.O. Signed By:04/24/251618 DD/ 09 TD/TT: Nurse Charge Rn: Authorizing ProviderResult TypeResult StatusGeneric External Data Provider CLINISYNC IMAGINGFinal Result * (ABNORMAL) [facility] MICROALB CREAT RATIO RANDOM (04/24/2025 3:08 PM EDT)Component ValueRef RangeTest MethodAnalysis TimePerformed AtPathologist Signature MICROALBUMIN URINE RANDOM3.5<=30.0 mg/dLTBHCREATININE URINE JLYKGY13.6220.00 - 300.00 mg/dLTBHMICROALBUM CREATININE RATIO UR82.1(H)0.0 - 29.9 mg/gTBHComment: NO MICROALBUMINURIA ?0-29 MG/G CLINICAL MICROALBUMINURIA ??30-300 MG/G MACROALBUMINURIA >300 MG/G Specimen (Source)Anatomical Location / LateralityCollection Method / Volume Collection TimeReceived Time04/24/2025 3:08 PM EDT04/24/2025 3:31 PM EDT Narrative CLINISYNC - 04/24/2025 3:45 PM EDT Authorizing ProviderResult TypeResult StatusVon [facility] MDCLINISYNCFinal Result Performing OrganizationAddressCity/State/ZIP CodePhone Number CH[place]Z TB * (ABNORMAL) MLR HEMOGLOBIN A1C (04/24/2025 1:17 PM EDT)ComponentValueRef Range Test MethodAnalysis TimePerformed AtPathologist SignatureGLYCOHEMOGLOBIN A1C 11.6(H)4.5 - 6.2 %TBHComment: ADA RECOMMENDED LIMIT 4.0 - 6.0 ADA THERAPEUTIC TARGET < 7.0 ACTION SUGGESTED > 7.0 ESTIMATED AVERAGE KFBPORY657lu/dLTBHSpecimen (Source)Anatomical Location / LateralityCollection Method / VolumeCollection TimeReceived Time04/24/2025 1:17 PM EDT04/24/2025 1:19 PM EDT Narrative CLINISYNC - 04/24/2025 2:42 PM EDT Authorizing ProviderResult TypeResult StatusY[facility] Sha MDCLINISYNCFinal Result Performing OrganizationAddressCity/State/ZIP CodePhone Number [facility] TBH * (ABNORMAL) HP LIVER PANEL (04/24/2025 1:17 PM EDT)ComponentValueRef Range Test MethodAnalysis TimePerformed AtPathologist SignatureBILIRUBIN TOTAL0.40.2 - 1.0 mg/dLTBHBILIRUBIN DIRECT0.10.0 - 0.2 mg/dLTBHASPARTATE AMINO TRANSFERASE 11(L)15 - 37 U/LTBHALANINE KJHGXZXFXXSCQEES7986 - 59 U/LTBHALKALINE GQCALKVYVGT43447 - 116 U/LTBHTOTAL PROTEIN7.36.4 - 8.2 g/dLTBHALBUMIN LEVEL3.4 3.4 - 5.0 g/dLTBHGLOBULIN3.9g/dLTBHALBUMIN GLOBULIN RATIO0.9TBHSpecimen (Source)Anatomical Location / LateralityCollection Method / VolumeCollection TimeReceived Time04/24/2025 1:17 PM EDT04/24/2025 1:19 PM EDT Narrative CLINISYAZ - 04/24/2025 2:48 PM EDT Authorizing ProviderResult TypeResult StatusHuron Valley-Sinai HospitalLINISYNCFinal Result Performing OrganizationAddressCity/State/ZIP [facility] – [place]Phone Number [facility] * ALL THYROID STIM HORMONE (04/24/2025 1:17 PM EDT)ComponentValueRef RangeTest MethodAnalysis TimePerformed AtPathologist SignatureTHYROID STIMULATING HORMONE1.1330.358 - 3.740 uIU/mLTBHSpecimen (Source)Anatomical Location / LateralityCollection Method / VolumeCollection TimeReceived Time04/24/2025 1:17 PM EDT04/24/2025 1:19 PM EDT Narrative CLINISYAZ - 04/24/2025 2:48 PM EDT Authorizing ProviderResult TypeResult Status[facility] AvinashUniversity of Vermont Medical CenterLINISYNCFinal Result Performing OrganizationAddressty/[facility]/ZIP CodePhone Number [facility] * (ABNORMAL) ALL LIPID PROFILE (FASTING) (04/24/2025 1:17 PM EDT)ComponentValue Ref RangeTest MethodAnalysis TimePerformed AtPathologist Signature DOHXLFPYUCGLH876(H)<=150 mg/cCBOTCJRCUEUEARZ322<=200 mg/dLTBHHDL EKAZMLVNNLQ79 (H)40 - 60 mg/dLTBHComment: > or =60 mg/dl - LOW CARDIOVASCULAR RISK <40 mg/dl - HIGH CARDIOVASCULAR RISK LDL CHOLESTEROL OXWAOGUIWJ12.0mg/dLTBHComment: <100 mg/dl OPTIMAL 100-129 mg/dl NEAR OR ABOVE OPTIMAL 130-159 mg/dl BORDERLINE HIGH 160-189 mg/dl HIGH >190 mg/dl VERY HIGH VLDL OLGNXTLDYBR52.2mg/dLTBHCHOL HDL RATIO2.9TBHComment: 3.3 - 4.4 ?? LOW RISK 4.4 - 7.1 ?? AVERAGE RISK 7.1 - 11.0 ??MODERATE RISK >11.0 HIGH RISK Specimen (Source)Anatomical Location / LateralityCollection Method / Volume Collection TimeReceived Time04/24/2025 1:17 PM EDT04/24/2025 1:19 PM EDT Narrative CLINISYNC - 04/24/2025 2:48 PM EDT Authorizing ProviderResult TypeResult StatusMarc Naderer MDCLINISYNCFinal Result Performing OrganizationAddressCity/State/ZIP CodePhone Number [facility] * (ABNORMAL) ALL CBC WITH AUTO DIFF (04/24/2025 1:17 PM EDT)ComponentValueRef RangeTest MethodAnalysis TimePerformed AtPathologist SignatureTBH WBC7.44.0 - 11.0 10 3/uLTBHTBH RBC4.594.20 - 5.40 10 6/uLTBHTBH HGB13.212.0 - 16.0 g/dLTBH TBH HCT41.836.0 - 48.0 %TBHTBH MCV91.181.0 - 99.0 fLTBHTBH MCH28.826.7 - 34.0 pgTBHTBH MCHC31.629.9 - 35.2 g/dLTBHTBH RDW12.711.0 - 15.0 %TBHTBH OYR144547 - 450 10 3/uLTBHTBH MPV9.3(L)9.5 - 13.5 fLTBHNEUTROPHILS PERCENT AUTO59.543.0 - 75.0 %TBHLYMPHOCYTES PERCENT AUTO33.520.5 - 60.0 %TBHMONOCYTES PERCENT AUTO5.4 1.7 - 12.0 %TBHTBH EO %1.20.9 - 7.0 %TBHBASOPHILS PERCENT AUTO0.30.2 - 2.0 % TBHIMMATURE GRANULOCYTES PCT AUTO0.10.0 - 0.5 %TBHNEUTROPHILS ABSOLUTE AUTO4.4 1.4 - 6.5 10 3/uLTBHLYMPHOCYTES ABSOLUTE AUTO2.51.2 - 3.8 10 3/uLTBHMONOCYTES ABSOLUTE AUTO0.40.3 - 0.8 10 3/uLTBHTBH EO #0.10.0 - 0.7 10 3/uLTBHBASOPHILS ABSOLUTE AUTO0.00.0 - 0.1 10 3/uLTBHIMMATURE GRANULOCYTES ABS AUTO0.010.00 - 0.03 10 3/uLTBHSpecimen (Source)Anatomical Location / LateralityCollection Method / VolumeCollection TimeReceived Time04/24/2025 1:17 PM EDT04/24/2025 1:19 PM EDT Narrative CLINISYNC - 04/24/2025 1:43 PM EDT Authorizing ProviderResult TypeResult StatusMarc Naderer MDCLINISYNCFinal Result Performing OrganizationAddressCity/State/ZIP CodePhone Number CLINISYNC TBH * Colonoscopy (09/12/2024 11:13 AM EST)Anatomical RegionLateralityModality Endoscopy Narrative Authorizing ProviderResult TypeResult StatusMichael Grillis DOENDOSCOPY PROCEDURE ORDERABLESFinal Result * Pap Smear (08/06/2024 12:00 AM EST)Specimen (Source)Anatomical Location / LateralityCollection Method / VolumeCollection TimeReceived TimeSwabCervical swab / Unknown Narrative Authorizing ProviderResult TypeResult StatusFazio Nurse [facility] ObLAB CYTOLOGY ORDERABLESFinal ResultPerforming OrganizationAddressCity/State/ZIP CodePhone Number EXTERNAL LAB * MM TOMOSYNTHESIS SCREENING BI (06/30/2024 7:52 PM EDT)Anatomical Region LateralityModalityOtherSpecimen (Source)Anatomical Location / Laterality Collection Method / VolumeCollection TimeReceived Time06/30/2024 7:52 PM EDT Narrative 06/30/2024 7:54 PM EDT [facility] ?[address] ? [place] [address] ? Mammography Report ? Signed ? Patient: CARISSA LOZADA ?MR#: [id number] ?? : 1980 ?Acct:[id number] ?? Age/Sex: 43 / F ?ADM Date: 10/25/24 ?? Loc: MAMMO ? Attending Dr: Erik Benz D.O. ? Ordering Physician: Erik Benz D.O. ?Results: ? Date of Service: 06/28/24 ?Follow Up: ? Procedure(s): MM tomosynthesis screening BI ?? Accession Number(s): [id number] ? cc: Erik Benz D.O.; Diaz Dalton M.D. ? Patient Name: ? CARISSA LOZADA ? MR#: [id number] ? : 1980 ? Exam Date: 06/28/2024 ?? Ordering Doctor: DR Erik Benz . ? RADIOLOGY REPORT ? PROCEDURE: ? MM TOMOSYNTHESIS SCREENING BI ? COMPARISON: ? MM TOMOSYNTHESIS SCREENING BI, 06/26/2023. ??MG MAMM SCREEN 3D ?? DINAH CAD, 06/22/2022. ??MG MAMM SCREEN 3D DINAH CAD, 06/21/2021. ??MG MAMM DINAH DIAG ?? W CAD, 02/02/2016. ? INDICATIONS: ? Screening ? Calculator Name ? NCI Breast Cancer Risk Assessment Tool ?? 5 Year Breast Cancer Risk ? 0.80% ?? Lifetime Breast Cancer Risk ? 9.80% ?? Personal Breast Cancer ?No ?? Personal Ovarian Cancer ? No ?? Treatments ? None ?? Family Cancers ? None ? LOCATION: ? [facility] ? BREAST COMPOSITION: ? There are scattered areas of fibroglandular density. ? FINDINGS: ? DIAGNOSTIC CATEGORY 1--NEGATIVE. ? RIGHT BREAST: ??No significant suspicious finding. ??No significant change has ?? occurred. ? LEFT BREAST: ??No significant suspicious finding. ??No significant change has ?? occurred. ? RECOMMENDATIONS: ? ROUTINE MAMMOGRAM AND CLINICAL EVALUATION IN 12 MONTHS. ? PLEASE NOTE: ??A NORMAL MAMMOGRAM DOES NOT EXCLUDE THE POSSIBILITY OF BREAST ?? CANCER. ??A CLINICALLY SUSPICIOUS PALPABLE LUMP SHOULD BE BIOPSIED. ? Dictated by: Kamron Gunn M.D. on 06/30/2024 at 19:48 ? Approved by: Kamron Gunn M.D. on 06/30/2024 at 19:52 ? Dictated By: ?Kamron Gunn M.D. ? Signed By: ?06/30/241953 ? DD/ 51 ? TD/TT: ? Nurse Charge Rn: Procedure Note Radiology, Radiologist, MD - 06/30/2024 [place] [address] Mammography Report Signed Patient: CARISSA LOZADA RMR#: [id number] : 1980Acct:[id number] Age/Sex: 43 / FADM Date: 06/28/24 Loc: MAMMO Attending Dr: Erik Benz D.O. Ordering Physician: Erik Benz D.O.Results: Date of Service: 06/28/24Follow Up: Procedure(s): MM tomosynthesis screening BI Accession Number(s): [id number] cc: Erik Benz D.O.; Diaz Dalton M.D. Patient Name: CARISSA LOZADA MR#: [id number] : 1980 Exam Date: 06/28/2024 Ordering Doctor: DR Erik Benz . RADIOLOGY REPORT PROCEDURE: MM TOMOSYNTHESIS SCREENING BI COMPARISON: MM TOMOSYNTHESIS SCREENING BI, 06/26/2023. MG MAMM ZZIXPA8K DINAH CAD, 06/22/2022. MG MAMM SCREEN 3D DINAH CAD, 06/21/2021. MG MAMM BILDIAG W CAD, 02/02/2016. INDICATIONS: Screening Calculator Name NCI Breast Cancer Risk Assessment Tool 5 Year Breast Cancer Risk 0.80% Lifetime Breast Cancer Risk 9.80% Personal Breast Cancer No Personal Ovarian Cancer No Treatments None Family Cancers None LOCATION: [facility] BREAST COMPOSITION: There are scattered areas [...] Gunn M.D. Signed By:06/30/241953 DD/ 51 TD/TT: Nurse Charge Rn: Authorizing ProviderResult TypeResult StatusCorey Demar DOCLINISYNC IMAGINGFinal Result from Last 3 Months or Most Recently Relevant to Health Maintenance Insurance Care Teams Team MemberRelationshipSpecialtyStart DateEnd Date Diaz Dalton MD PCP - GeneralFamily Medicine09/25/23
--- OUTSIDE RECORDS SUMMARY | 2025-07-02 12:09 | XMS_ITS | Clinical Summary ---
Author Organization [facility] tem Address [id number] [address] [place] [address] Care Team Providers Care Registration Manager Name Role Phone Diaz Dalton MD Primary Care Provider [phone] Allergies Active AllergyReactionsCriticalityNoted DateComments Sulfamethoxazole-TrimethoprimHives,Itching,Other (See Comments)Hbwqeg7212/13/2011 Medications MedicationSigDispense QuantityRefillsLast FilledStart DateEnd DateStatus atorvastatin (LIPITOR) 40 mg tablet Take 1 tablet (40 mg total) by mouth in the morning.Active buPROPion XL (WELLBUTRIN XL) 300 mg 24 hr tablet Take 1 tablet (300 mg total) by mouth every morning.Active lamoTRIgine (LaMICtal) 200 mg tablet Indications:depression associated with bipolar disorderTake 1 tablet (200 mg total) by mouth in the morning. Indications: bipolar depression.Active pantoprazole (PROTONIX) 40 mg EC tablet Take 1 tablet (40 mg total) by mouth every morning before breakfast.Active sertraline (ZOLOFT) 100 mg tablet Take 1 tablet (100 mg total) by mouth in the morning.Active cholecalciferol, vitamin D3, 400 units tablet Take 1 tablet (400 Units total) by mouth in the morning.Active insulin glargine (LANTUS) 100 unit/mL injection Inject 0.15 mL (15 Units total) under the skin in the morning.Active albuterol (PROVENTIL HFA;VENTOLIN HFA) 90 mcg/actuation inhaler Indications:HypoxiaInhale 2 puffs every 6 (six) hours as needed for wheezing or shortness of breath. 18 g 04/19/2024Active lisinopriL (PRINIVIL,ZESTRIL) 2.5 mg tablet take 1 tablet by mouth every morning 30 tablet ctive topiramate (TOPAMAX) 25 mg capsule Take 1 capsule (25 mg total) by mouth in the morning and 1 capsule (25 mg total) before bedtime.Active dicyclomine (BENTYL) 20 mg tablet Take 1 tablet (20 mg total) by mouth every 6 (six) hours.Active cyclobenzaprine (FLEXERIL) 10 mg tablet Take 1 tablet (10 mg total) by mouth 3 (three) times a day as needed for muscle spasms. 30 tablet 06/29/2024ctive naproxen (NAPROSYN) 500 mg tablet Take 1 tablet (500 mg total) by mouth in the morning and 1 tablet (500 mg total) in the evening. Take with meals. 30 tablet 06/29/2024ctive furosemide (LASIX) 20 mg tablet Indications:Dyspnea on exertion,Pulmonary hypertension (CMS-HCC)Take 1 tablet (20 mg total) by mouth daily. 90 tablet ctive clonazePAM (KlonoPIN) 1 mg tablet Take 1 tablet (1 mg total) by mouth as needed in the morning and 1 tablet (1 mg total) as needed inthe evening for seizures.Active citalopram (CeleXA) 20 mg tablet 08/13/2024ctive FREESTYLE CEDRIC 14 DAY SENSOR kit 08/14/2024ctive insulin aspart U-100 (NovoLOG) 100 unit/mL (3 mL) insulin pen in the morning and at noon and in the evening. Take with meals.Active nabumetone (RELAFEN) 500 mg tablet Take 1 tablet (500 mg total) by mouth as needed in the morning and 1 tablet (500 mg total) as needed in the evening.08/15/2024ctive LORazepam (ATIVAN) 1 mg tablet Take 1 tablet (1 mg total) by mouth as needed in the morning and 1 tablet (1 mg total) as needed atnoon and 1 tablet (1 mg total) as needed in the evening. 07/10/2024ctive empagliflozin (JARDIANCE) 10 mg tablet tablet Take 1 tablet (10 mg total) by mouth in the morning. 90 tablet 5Active tirzepatide (MOUNJARO) 5 mg/0.5 mL pen injector Indications:Type 2 diabetes mellitus with hyperglycemia, with long-term current use of insulin ([facility])Inject 5 mg under the skin every 7 days. 6 mL 5Active ondansetron ODT (ZOFRAN ODT) 4 mg disintegrating tablet Dissolve 1 tablet (4 mg total) on tongue every 8 (eight) hours as needed for nausea for up to 10 doses. 10 tablet 5Active TRELEGY ELLIPTA 200-62.5-25 mcg blister with device Inhale 1 puff in the morning. 60 each 1105Active albuterol (PROVENTIL,VENTOLIN) 2.5 mg /3 mL (0.083 %) nebulizer solution Indications:Moderate persistent asthma without complicationInhale 3 mL (2.5 mg total) by nebulization 4 (four) times a day as needed for wheezing. 75 mL 1205Active Active Problems ProblemNoted DateDiagnosed DateHTN (hypertension)5Chronic heart failure with preserved ejection cloovuvq59/03/2025OPD (chronic obstructive pulmonary disease)4BMI 40.0-44.9, adult4Pulmonary jhcrsykusxvg38/17/2024 Moderate persistent asthma without ncpsecjddaya26/17/2024hronic hypoxic respiratory gwswtlk7302/19/2024ulmonary fjugpb5702/08/2024yspnea on exertion 4Acute cystitis without ezxcjyjxn03/18/2024Mediastinal lymphadenopathy 11/09/2023Hyperlipidemia associated with type 2 diabetes uflxqztb89/09/2023 Abnormal ECG during exercise stress test07/13/2023hest wall pain06/04/2023 Gastroesophageal reflux mydsihu8204/06/2023Mild developmental delay09/29/2021 Ikhgliqkncsss17/28/6754Glgmv24/30/5371Oktdrjaeealj27/19/2010Type 2 diabetes mellitus with hyperglycemia, with long-term current use of gqjywas2509/30/2009 Obstructive sleep apnea oqttcjjr78/27/2010 Resolved Problems ProblemNoted DateDiagnosed DateResolved DateCOPD /17/2024 10/07/2024Severe obesity (BMI >= 40)Unstable angina pectoris Encounters DateTypeDepartmentCare GxgmRlblgygnjlm98/06/2025Telephone [facility] [address] [place] [phone] Maria C Bailey RN Surgical Or Dental Zcboxtplu63/06/2025Orders Only [facility] [address] [place] [phone] External, Scanning Provider 05/14/2025 12:00 PM EDTOffice Visit [facility] [address] 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 Obstructive sleep apnea syndrome (Primary Dx); Dyspnea on exertion; Moderate persistent asthma without complication; Chronic hypoxic respiratory failure ([facility]-HCC); BMI 40.0-44.9, adult ([facility]-HCC); Obesity, morbid, BMI 40.0-49.9 (CMS-HCC)05/14/2025Telephone [facility] [address] [place] [address] Silvia Otero RMA 05/14/20251371Ysayry57/03/2025Results Follow-Up [facility] [address] [place] [address] Shania Lopez MD Home O2 sgzbpoakqm08/28/2025Telephone [facility] [address] [place] [address] Silvia Otero RMA 05/01/2025Orders Only [facility] [address] [place] [phone] Silvia Otero Desire Hypoxia (Primary Dx); Dyspnea on exertionfrom Last 3 Months Immunizations ImmunizationAdministration DatesNext JsoTmxu9104/09/2021 Family History Medical HistoryRelationNameCommentsCancerFatherDiabetesMotherHeart attackMother Anesthesia problemsNeg HxRelationNameStatusCommentsFatherDeceasedMotherAlive Social History Tobacco UseTypesPacks/DayYears UsedDateSmoking Tobacco: NeverSmokeless Tobacco: NeverAlcohol UseStandard Drinks/WeekCommentsNot Currently0 (1 standard drink = 0.6 oz pure alcohol)[facility] UtilitiesAnswerDate RecordedIn the past 12 months has the electric, gas, oil, or water company threatened to shut off services in your home?No07/21/2024Social Connection and Isolation PanelAnswerDate RecordedIn a typical week, how many times do you talk on the phone with family, friends, or neighbors?More than three times a week12/20/2023How often do you get together with friends or relatives?More than three times a week12/20/2023How often do you attend synagogue or druze services?Never12/20/2023o you belong to any clubs or organizations such as synagogue groups, unions, fraternal or athletic groups, or school groups?No12/20/2023How often do you attend meetings of the clubs or organizations you belong to?Never12/20/2023re you , , , , never , or living with a partner?Vtuwjms9012/20/2023UDIT-C AnswerDate RecordedQ1: How often do you have a drink containing alcohol?Never 12/20/2023Q2: How many drinks containing alcohol do you have on a typical day when you are drinking?Patient does not drink12/20/2023Q3: How often do you have six or more drinks on one occasion?Never12/20/2023Overall Financial Resource Strain (CARDIA)AnswerDate RecordedHow hard is it for you to pay for the very basics like food, housing, medical care, and heating?Not hard at all12/20/2023 PHQ-2AnswerDate RecordedTotal Rtfpv713[facility] [place] of Occupational Health - Occupational Stress QuestionnaireAnswerDate RecordedDo you feel stress - tense, restless, nervous, or anxious, or unable to sleep at night because your mind is troubled all the time - these days?Only a jaaruz8512/20/2023Exercise Vital SignAnswerDate RecordedOn average, how many days per week do you engage in moderate to strenuous exercise (like a brisk walk)?3 days12/20/2023On average, how many minutes do you engage in exercise at this level?10 min12/20/2023RAPARE - TransportationAnswerDate RecordedIn the past 12 months, has lack of transportation kept you from medical appointments or from getting medications?No 07/21/2024In the past 12 months, has lack of transportation kept you from meetings, work, or from getting things needed for daily living?No07/21/2024 Housing InstabilityAnswerDate RecordedAre you worried or concerned that in the next two months you may not have stable housing that you own, rent or stay in as a part of a household?No07/21/2024hildcareAnswerDate RecordedDo problems getting early childhood lead teacher make it difficult for you to work or study?No12/20/2023 EmploymentAnswerDate RecordedDo you need help finding a local career center and/or a training program?No12/20/2023Hunger ScreeningAnswerDate RecordedWithin the past 12 months we worried whether our food would run out before we got money to buy more.Never True01/03/2025Within the past 12 months the food we bought just didn't last and we didn't have money to get more.Never True01/03/2025 Purpose - LifeAnswerDate RecordedI have a purpose and direction in my life. Strongly Agree4CommentsNoSex and Gender InformationValueDate RecordedSex Assigned at BirthNot on fileLegal LodZshhkd86/06/2015 11:24 AM EDT Gender IdentityNot on fileSexual OrientationNot on file Last Filed Vital Signs Vital SignReadingTime TakenCommentsBlood Wjmrjxpe624/7309 11:54 AM EDT Cupiy748505/14/2025 11:54 AM GYOWydnxpbebwn71.9 ??C (98.4 ??F)10/27/2024 3:00 PM ESTRespiratory Dkic523610/27/2024 6:57 PM ESTOxygen Dsystcnmkp013%05/14/2025 11:54 AM EDTArrived on 3Lnc of I5Apzwuye Oxygen Concentration--Xisrvd32 kg (216 lb 1.6 oz)05/14/2025 11:54 AM FIJFmpwsh737.9 cm (5' 1 )05/14/2025 11:54 AM EDTBody Mass Index40.8305/14/2025 11:54 AM EDT Plan of Treatment DateTypeDepartmentCare Team (Latest Contact Info)Szedbwzqgmx02/03/2025 9:30 AM ESTOffice Visit [facility] [address] [place] [address] Adriane Woods, [employer] ARTILL[employer] CREWMEMBER-HEMMING AND TACKING MACHINE OPERATOR [address] [place] [phone] Chasidy Lai PA-C [address] [place] [address] Health MaintenanceDue DateLast DoneCommentsDiabetic Ophthalmology Exam1979 Statin Use: Lbmzbtus1979Adult BMI Follow Up Plan1997Diabetic Foot Exam1997Depression Xqicumguc70/OVID-19 Vaccine ( season), 06/09/2021Influenza Fghcgwb6505/05/2025 06/15/2020, 05/20/2019, 04/22/2017, Additional history existsAdult BMI Screening Tobacco Pkkeoubnp42Pap Smear08/06/2027 08/06/2024, 08/01/2023, 07/14/20222225Fkdjdvabqij13/09/203001/05/2025, 09/12/2024, 09/12/2024DTaP,Tdap and Td Vaccines (2 - Td or Tdap) Goals GoalPatient Goal TypeAssociated ProblemsRecent ProgressPatient-Stated?Author Home with [facility] Stacey Leger, RN Note: Evaluation of progress towards goal: Patient plans to return home with self care. Medical Devices Not on file Procedures Procedure NamePriorityDate/TimeAssociated DiagnosisCommentsECG 12-LEADRoutine 06/05/2025 10:31 AM EDTHOME O2 KPSTRQQPNUFockrmv71/03/2025 3:46 PM EDT Hypoxia Dyspnea on exertion [employer] DMDSCGLKGAGIcdicpd97/09/2025 9:04 AM EST from Last 3 Months or Most Recently Relevant to Health Maintenance Results * ECG 12 lead (06/05/2025 10:31 AM EDT) Narrative Authorizing ProviderResult TypeResult StatusScanning Provider ExternalECG ORDERABLESFinal ResultPerforming OrganizationAddressCity/State/ZIP CodePhone Number MANUALLY TRANSCRIBED RESULTS * Home O2 evaluation (05/07/2025 3:46 PM EDT)Specimen (Source)Anatomical Location / LateralityCollection Method / VolumeCollection TimeReceived Time Narrative MANUALLY TRANSCRIBED RESULTS - 05/07/2025 3:46 [...] with SpO2<89: 1h 59 min Nocturnal HR: ??(75-99) Resting SaO2: 100 % Resting HR: 82 bpm Exercise SaO2: 93 % Exercise HR: 110 bpm Comments: Six minute walk completed. Noct pox on 3lpm oxygen. Respiratory Therapist: Arlene Gilman RCP Authorizing ProviderResult TypeResult Wallace Arrieta [facility] ORDERABLESFinal ResultPerforming OrganizationAddressCity/State/ZIP CodePhone Number MANUALLY TRANSCRIBED RESULTS * Colonoscopy Report (09/12/2024 9:04 AM EST)Specimen (Source)Anatomical Location / LateralityCollection Method / VolumeCollection TimeReceived Time Narrative SYSTEMGENERATED, DOCUMENTATION - 09/12/2024 9:04 AM EST This order has been auto-finalized for image and report archival in PACs. *For full report details, please reach out to your physician. ??This image is visible to you in MyChart.* Authorizing ProviderResult TypeResult StatusMichael E Grillis DOIMG OR IMG ORDERABLESFinal Result from Last 3 Months or Most Recently Relevant to Health Maintenance Insurance [address] [place] [address] Advance Directives * Full Code (Latest Code Status on File) Date ActivatedDate NjkgfipgbegLialebek73/17/2024 10:40 PM07/23/2024 7:57 PM * Full Code Date ActivatedDate InactivatedComments12/20/2023 10:13 PM12/23/2023 5:45 PM * Full Code Date ActivatedDate CgtmwtoeyktZvshsiql55/2/2023 6:38 AM06/05/2023 7:25 PM * Full Code Date ActivatedDate InactivatedComments03/02/2019 2:48 PM03/03/2019 5:59 PM Care Teams Team MemberRelationshipSpecialtyStart DateEnd Date Diaz Dalton MD PCP - GeneralFamily Medicine10/27/24
--- OUTSIDE RECORDS SUMMARY | 2025-07-02 12:14 | XMS_ITS | CCD ---
Author Organization [facility] Care Team Providers Care Marine Surveyor Name Role Phone DIAZ DALTON Attending Unavailchad DALTON, DIAZ MORALES Primary Care Unavailchad Dalton MD, Diaz Morales Primary Care Provider YAAKOV BERRIOS Referring Unavailable SHA, DIAZ MORALES Primary Care Unavailabl e SALASGUIDO Bergman Attending Unavailable BRYAN, LEONEL Admitting Unavailable BRYAN, LEONEL Consulting Unavailable AOUADGOVIND T Consulting Unavailable LOPEZ, JUSTIN Consulting Unavailable JACKSON, ROBSON Attending Unavailable JACKSON, ROBSON Admitting Unavailable JACKSON, ROBSON Attending Unavailable JACKSON, ROBSON Attending Unavailable TAMLYDarya ., NICOLÁS Admitting Unavailable OSCAR II, ZACK Consulting Unavailable TAMLYDarya ., NICOLÁS Attending Unavailable NADERER, DR DIAZ Phipps Primary Care Unavailable TAMLYNICOLÁS Oliveira Consulting Unavailable SHAILA SALAS Consulting Unavailable DEMAR [...] Unavailable DEMAR ., DR VALENCIA Admitting Unavailable EDMAR ., DR VALENCIA Attending Unavailable DEMAR ., DR VALENCIA Consulting Unavailable NADERER, DR DIAZ Phipps Primary Care Unavailable DEMAR ., DR VALENCIA Admitting Unavailable DEMAR ., DR VALENCIA Attending Unavailable DEMAR ., DR VALENCIA Consulting Unavailable NADERER, DR DIAZ Phipps Primary Care Unavailable NADERER, DR DIAZ Phipps Primary Care Unavailable NORRIS, DR CHERI Cespedes Attending Unavailable MYRNA, DR CHERI Cespedes Consulting Unavailable MYRNA, DR CHERI Cespedes Admitting Unavailable Naderer , Diaz Primary Care Provider [phone] Sha WERNER, Diaz Primary Care Provider Paul, Gary Carlos Admitting Unavail able Paul, Gary Carlos Attending Unavail able NADERER, DIAZ A Primary Care Unavailable Paul, Gary Carlos Attending Unavail able Paul, Gary Carlos Admitting Unavail able NADERER, DIAZ A Primary Care Unavailable Paul, Gary Carlos Attending Unavail able NADERER, DIAZ A Primary Care Unavailable Paul, Gary Carlos Admitting Unavail able Paul, Gary Carlos Attending Unavail able Paul, Gary Carlos Admitting Unavail able NADERER, DIAZ A Primary Care Unavailable Paul, Gary Carlos Attending Unavail able Paul, Gary Carlos Admitting Unavail able NADERER, DIAZ A Primary Care Unavailable Sha WERNER, Diaz Primary Care Provider [phone] Sha WERNER, Diaz Primary Care Provider Sha WERNER, Diaz Primary Care Provider Sha WERNER, Diaz Primary Care Provider [phone] Sha WERNER, Diaz Primary Care Provider DIAZ DALTON Primary Care Unavailable LINDSAY ARRIETA Attending Unavailable LINDSAY ARRIETA Referring Unavailable NADERER, DIAZ Referring Unavailable DEREKERECoy, DIAZ Primary Care Unavailable DEREKERECoy, DIAZ Primary Care Unavailable LINDSAY ARRIETA Referring Unavailable NADERER, DIAZ Primary Care Unavailable LINDSAY ARRIETA Attending Unavailable LINDSAY ARRIETA Referring Unavailable DEREKERECoy, DIAZ Primary Care Unavailable LINDSAY ARRIETA Referring Unavailable DEREKERER, DIAZ Referring Unavailable DEREKERER, DIAZ Primary Care Unavailable DEREKERER, DIAZ Primary Care Unavailable NADERER, DIAZ Primary [...] Admitting Unavailable NADERER, DIAZ Primary Care Unavailable OOSTRA, HAIR E Referring Unavailable NADERER, DIAZ Primary Care Unavailable [...] ARRIETA Referring Unavailable LINDSAY ARRIETA Attending Unavailable NadDiaz brock MD Primary Care Provider Diaz Dalton MD Primary Care Provider [phone] Randall Soria MD Attending Provider NADERER, DIAZ Referring Unavailable NADERER, DIAZ Primary Care Unavailable HARINDER ESTRELLA Admitting Unavailable HARINDER ESTRELLA Attending Unavailable NADERER, DIAZ Primary Care Unavailable LINDSAY ARRIETA Attending Unavailable NADERER, DIAZ Referring Unavailable NADERER, DIAZ Primary Care Unavailable KAYLAN ROBERTO Attending Unavailable NADERER, DIAZ Referring Unavailable NADERER, DIAZ Primary Care Unavailable PACHECO MADRIGAL Attending Unavailable NADERER, DIAZ Referring Unavailable NADERER, DIAZ Primary Care Unavailable LINDSAY ARRIETA Attending Unavailable TAISHAR, DIZA Referring Unavailable NADERER, DIAZ Primary Care Unavailable PACHECO MADRIGAL Attending Unavailable NADERER, DIAZ Referring Unavailable NADERER, DIAZ Primary Care Unavailable Diaz Dalton MD Primary Care Provider Diaz Dalton MD Attending Provider [phone] CARMEN BOWMAN Attending Unavailable SHA, DIAZ Attending Unavailable DIAZ DALTON Attending Unavailable DIAZ DALTON Attending Unavailable SHAMA MEDINA Attending Unavailable SHAMA MEDINA Referring Unavailable STEPJR. KRYSTYNA, HARINDER Lynn Attending Unavaila ble DEMAR, FELIZ Attending Unavailable SHAKILA VALADEZ Attending Unavailable STEPANIC, JRBrian, HARINDER Lynn Referring Unavaila ble UBALDO DOS SANTOS Attending Unavailable STEPANIC, JRBrian, HARINDER Lynn Referring Unavaila ble FABIOLA BOOGIE Attending Unavailable STEPKRYSTYNA, JRBrian, HARINDER Lynn Referring Unavaila ble FABIOLA BOOGIE Attending Unavailable STEPKRYSTYNA, JRBrian, HARINDER Lynn Referring Unavaila ble DEMAR, FELIZ Attending Unavailable JR. MANUEL, HARINDER Lynn Attending Unavaila florentin SNOWDEN, BARRY Copeland Attending Unavailable SP, BARRY Copeland Attending Unavailable SHA, DIAZ Attending Unavailable DEMAR, FELIZ Attending Unavailable DEMAR, FELIZ Attending Unavailable SHAMA MEDINA Attending Unavailable Diaz Dalton Primary Care Unavailable Randall Soria Attending Unavailable Randall Soria Admitting Unavailable Randall Soria Admitting Unavailable Diaz Dalton Primary Care Unavailable Randall Soria Attending Unavailable Diaz Dalton Primary Care Unavailable Randall Soria Attending Unavailable Randall Soria Admitting Unavailable Allergies Allergy ClassificationReported Allergen(s)Allergy TypeDate of OnsetReaction(s) Facility (20 sources)Sulfamethoxazole / Trimethoprim; Translations: [SULFAMETHOXAZOLE-TRIMETHOPRIM]Drug Zeqaswx16-95-7805Xfzpvbu, Hives, Other (See Comments)[facility] (1 source)Amoxicillin / ClavulanateDrug AllergyThe [facility] (1 source)levoFLOXacinDrug Npsdtpw76-77-6018LrdFostoria [facility] (2 sources)Sulfamethoxazole / Trimethoprim; Translations: [Bactrim]Drug Allergy 14-28-7490Jdl [facility] Repository (6 sources)Clindamycin; Translations: [clindamycin]Drug Bjcivmc71-14-1088oowzPark[facility] (6 sources)Sulfamethoxazole; Translations: [sulfamethoxazole]Drug Allergy 72-26-8456ZhtsOvxyyzgtkAdena Health System (6 sources)Trimethoprim; Translations: [trimethoprim]Drug Kgeyphs41-00-1295SpfiShelby [facility] Hospital Medications Current Medications MedicationDrug Class(es)DatesSig (Normalized)Sig (Original)acetaminophen 325 mg oral tablet (2 sources)Start: 66-46-1805bsug 1 tablet by mouth every four hours as yrvmrq746 mg, oral, Every 4 hours PRN, Temperature greater than 38.3 C, Starting on Mon12/20/23 at 2211, [Warning: Total Acetaminophen not to exceed more than 4 grams (4000 mg) in 24 hours]Start: 74-32-9005mjstckrrxdwem (TYLENOL) 160 MG/5ML solution 650 mgacetaminophen 325 mg / HYDROcodone bitartrate 5 mg oral tablet (5 sources)Opioid AgonistStart: 06-14-2024 End: 00-46-4102jxde 1 tablet by mouth every six hours for painHYDROcodone- acetaminophen ([place]) 5-325 MG tablet Indications: Post-operative pain Take 1 tablet bymouth every 6 (six) hours if needed for severe pain for up to 3 days 12 tablet 06/14/2024 06/17/2024 ActiveStart: 02-53-7091lxyf 1 tablet by mouth four times daily as needed for painHYDROcodone-acetaminophen ([place]) 5-325 MG tablet Indications: Cavitary lesion of lung Take 1 tablet by mouth 4 (four) times a day as needed for severe pain 28 tablet 0 08/10/2023 Activetake 1 tablet by mouth every six hours as needed for painHYDROcodone-acetaminophen (NORCO) 5-325 MG per tablet Take 1 tablet by mouth every 6 hours as needed for Pain. 0 Active acyclovir 400 mg oral tablet (20 sources)Herpesvirus Nucleoside Analog DNA Polymerase Inhibitor, Herpes Simplex Virus Nucleoside Analog DNA Polymerase Inhibitor, Herpes Zoster Virus Nucleoside Analog DNA Polymerase Inhibitoracyclovir (Zovirax) 400 MG tablet every 12 (twelve) hours Activealbuterol 0.83 mg/ml inhalation solution (20 sources)beta2-Adrenergic AgonistStart: 92-09-0054gsma 3 mL by inhalation four times daily as needed for wheezingalbuterol (PROVENTIL,VENTOLIN) 2.5 mg /3 mL (0.083 %) nebulizer solution Indications: Moderate persistent asthma without complication Inhale 3 mL (2.5 mg total) by nebulization 4 (four) times a day as needed for wheezing. 75 mL 12 05/07/2025 ActiveStart: 38-56-2112cnsk 1 puff(s) by inhalation every four to six hours as needed for wheezingAlbuterol Sulfate 90 mcg/actuation HFA aerosol inhaler Active 2 PUFF INHALATION EVERY 4-6 HOURS as n eeded for shortness of breath or wheezing May 01, 2025 12:00am Complies with drug therapyStart: 02-28-8210wpoz 2 puff(s) by mouth every four hours as needed for wheezingalbuterol HFA 90 mcg/act inhaler Indications: SOB (shortness of breath) INHALE 2 PUFFS BY MOUTH EVERY 4 HOURS NEEDED FOR WHEEZING 8.5 g 11 02/25/2025 ActiveStart: 58-91-6105mirv 2 puff(s) by inhalation every six hours as needed for wheezingalbuterol (PROVENTIL HFA;VENTOLIN HFA) 90 mcg/actuation inhaler Indications: Hypoxia Inhale 2 puffsevery 6 (six) hours as needed for wheezing or shortness of breath. 18 g 12/22/2023 ActiveStart: 08-10-2023 End: 79-27-8440cxwm 2 puff(s) by mouth every four hours as needed for wheezing albuterol HFA 90 mcg/act inhaler Indications: SOB (shortness of breath) INHALE 2 PUFFS BY MOUTH EVERY 4 HOURS NEEDED FOR WHEEZING 8.5 g 10 04/16/2024 Active Start: 10-03-2021 End: 02-75-3048wdfw 2 puff(s) by inhalation every six hours as needed for wheezingalbuterol sulfate HFA 108 (90 Base) MCG/ACT inhaler Inhale 2 puffs into the lungs every 6 hours as needed for Wheezing or Shortness of Breath 1 each 0 10/03/2021 11/02/2021 ActiveStart: 33-12-0660gfzuvqjih (PROVENTIL) nebulizer solution 2.5 mgalbuterol 0.833 mg/ml / ipratropium bromide 0.167 mg/ml inhalation solution (1 source)Anticholinergic, beta2-Adrenergic AgonistStart: 45-00-4684zrat 3 mL by inhalation every six hours as needed for wheezing3 mL, nebulization, Every 6 hours PRN, wheezing, Starting on Mon12/20/23 at 2219, Implement INPATIENT/ED Bronchodilator Clinical Practice Guidelines? Yes, Document: \[facility].org\epic\EPIC_Reference\Orders\Respiratory Care Guidelines\CPG Bronchodilator 2020.pdfaluminum hydroxide 40 mg/ml / magnesium hydroxide 40 mg/ml / simethicone 4 mg/ml oral suspension (1 source)Start: 59-06-4222bhfk 30 mL by mouth four times daily at bedtime as mL, oral, 4 times daily after meals and at bedtime as needed, dyspepsia, Starting on Mon12/20/23at 2212, Look-alike/sound-alike medication - verify indication for use. Shadel well., Indications: dyspepsiaatorvastatin 40 mg oral tablet (20 sources)HMG-CoA Reductase InhibitorStart: 06-11-2018 End: 27-93-8196skvq 1 tablet by mouth once daily in the morningAtorvastatin 40 mg tablet Active 40 MG PO Every morning June 11, 2018 12:00am Complies with drug therapyBlack Cohosh Root Extract (20 sources)Start: 78-71-8304vbez 1 capsule by mouth once dailyStart: 06-04-2025 take 1 capsule by mouth once dailyBlack Cohosh Root Extract 40 mg capsule Active 40 MG PO Daily June 04, 2025 12:00am Complies with drug therapyStart: 74-94-6178ugab 1 capsule by mouth once dailyBlack Cohosh (Black Cohosh Hot Flash Relief) 40 MG capsule Indications: Hot flashes due to menopause Take 1 each by mouth Daily 30 capsule 11 11/02/2023 ActiveBlood Glucose Monitoring Suppl (True Metrix Meter) w/Device kit (20 sources)Start: 36-50-0819Kylim Glucose Monitoring Suppl (True Metrix Meter) w/Device kit Indications: Type 2 diabetes mellitus with hyperglycemia, with long-term current use of insulin (HCC) Test daily 1 kit 02/25/2025 ActiveBlood- Glucose Sensor device (3 sources)Start: 73-17-9191Ehcwu-Glucose Sensor device Active 0 .ROUTE June 04, 2025 12:00am As directed, freestyle crystal 3 txvraxf40 hr buPROPion hydrochloride 300 mg extended release oral tablet (20 sources)AminoketoneStart: 86-04-9282vxcq 1 tablet by mouth once daily as needed for depressionBupropion Hcl 300 mg tablet extended release 24 hr Active 300 MG PO Daily as needed for depression May 01, 2025 12:00am Complies with drug therapyStart: 22-70-0024uzxd 1 tablet by mouth every twenty-four hours in the morningbuPROPion XL (Wellbutrin XL) 300 MG 24 hr tablet Take 300 mg by mouth in the morning. 0 07/18/2023 ActivecefTRIAXone 1000 mg injection (2 sources)Cephalosporin AntibacterialStart: 20-66-8906idjj 1000 mg intravenously every twenty-four hours1,000 mg, intravenous, at 100 mL/hr, Administer over 30 Minutes, Every 24 hours, First dose on Mon12/21/23 at 2000, Look-alike/sound-alike medication - verify indication for use. Do not co-administerwith calcium-containing solutions such as Lactated Ringers., Indication: UTIStart: 12-20-2023 End: ,000 mg, intravenous, at 100 mL/hr, Administer over 30 Minutes, Once, On Mon12/20/23 at 1930, For 1 dose, Look-alike/sound-alike medication - verify indication for use. Do not co-administer with calcium-containing solutions such as Lactated Ringers., Indication: UTIcephalexin 500 mg oral capsule (2 sources)Cephalosporin AntibacterialStart: 12-22-2023 End: 70-92-4588jbsl 1 capsule by mouth in the morning, then take 1 capsule by mouth at bedtimeCEPHalexin (KEFLEX) 500 mg capsule Take 1 capsule (500 mg total) by mouth in the morning and 1 capsule (500 mg total) before bedtime. Do all this for 4 days. 8 capsule 12/22/2023 12/26/2023 Activecholecalciferol 0.05 mg oral tablet (20 sources)Vitamin DStart: 78-20-6264igtt 1 tablet by mouth once daily in the morningStart: 02-03-2025 End: 83-52-9155vopi 1 tablet by mouth once daily in the morningCholecalciferol (Vitamin D3) 50 mcg (2,000 unit) tablet Discontinued 50 MCG PO Every morning 2024 12:00am June 04, 2025 11:51amStart: 76-89-8410wpug 400 [IU] by mouth once mjudw234 Units, oral, Daily, First dose on Joaquina 12/21/23 at 0900 Start: 10-02-2023 End: 84-45-3113nryh 2 tablets by mouth once dailycholecalciferol (Vitamin D-3) 50 MCG (2000 UT) tablet Indications: Vitamin D deficiency Take 2 tablets (100 mcg) by mouth Daily 60 tablet 5 08/14/2024 Activetake 1 tablet by mouth in the morningcholecalciferol, vitamin D3, 400 units tablet Take 1 tablet (400 Units total) by mouth in the morning. Activeciprofloxacin 500 mg oral tablet (2 sources)Quinolone AntimicrobialStart: 07-04-2024 End: 67-24-0887rdzy 1 tablet by mouth in the morningciprofloxacin (Cipro) 500 MG tablet Indications: Urinary Tract Infection Take 1 tablet (500 mg) by mouth in the morning and 1 tablet (500 mg) before bedtime. Do all this for 7 days. 14 tablet 07/04/2024 07/11/2024 Activecitalopram 40 mg oral tablet (20 sources)Serotonin Reuptake InhibitorStart: 46-25-8124yfej 1 tablet by mouth once daily in the morningCitalopram 40 mg tablet Active 40 MG PO Every morning May 01, 2025 12:00am Complies with drug therapyStart: 03-15-2024 End: 44-51-4077vevtctdmyn (CeleXA) 20 mg tablet 08/13/2024 ActiveclonazePAM 1 mg oral tablet (20 sources)BenzodiazepineStart: 29-54-7029rurw 1 tablet by mouth at bedtime as needed for anxietytake 1 tablet by mouth three times daily as needed for anxiety clonazePAM (KLONOPIN) 1 MG tablet Take 1 mg by mouth 3 times daily as needed for Anxiety. 0 ActiveContinuous Glucose Cigar Packer And Grader ([place] HomesteadStyle Crystal 2 [place]) device (7 sources)Start: 10-25-2024 End: 21-92-6313Lygdeembnx Glucose Cigar Packer And Grader (FreeStyle Crystal 2 Wy[place]) device Indications: Type 2 diabetes mellituswith microalbuminuria, with long-term current use of insulin (CMS/HCC) Test once daily 1 each 10/25/2024 11/07/2024 DiscontinuedStart: 51-41-5428Fkdmrumqlq Glucose Cigar Packer And Grader (FreeStyle Crystal 2 [place]) device Indications: Type 2 diabetes mellituswith microalbuminuria, with long-term current use of insulin (CMS/HCC) Test once daily 1 each 10/25/2024 ActiveContinuous Glucose Cigar Packer And Grader (FreeStyle Crystal 3 [place]) device (20 sources)Start: 18-54-2385Uzuwqfbblf Glucose Cigar Packer And Grader (FreeStyle Crystal 3 [place]) device Indications: Type 2 diabetes mellituswith hyperglycemia, with long-term current use of insulin ([facility]) 1 Application continuously 1 each ActiveStart: 11-07-2024 End: 58-78-4982Xnmxmnghcx Glucose Cigar Packer And Grader (FreeStyle Crystal 3 Wy[place]) device Indications: Type 2 diabetes mellituswith hyperglycemia, with long-term current use of insulin (CMS/HCC) 1 Application continuously 1 each 11/07/2024 11/07/2024 DiscontinuedStart: 98-98-2401Ysfxvdsxuf Glucose Cigar Packer And Grader (FreeStyle Crystal 3 [place]) device Indications: Type 2 diabetes mellituswith hyperglycemia, with long-term current use of insulin (CMS/HCC) 1 Application continuously 1 each 11/07/2024 ActiveContinuous Glucose Sensor (FreeStyle Crystal 14 Day Sensor) misc (3 sources)Start: 94-60-7239Mbbpxwvumn Glucose Sensor (FreeStyle Crystal 14 Day Sensor) misc Indications: Type 2 diabetes mellitus with microalbuminuria, with long-term current use of insulin (CMS/HCC) apply 1 SENSOR to back OF UPPER ARM REMOVE AND REPLACE every 14 d... (REFER TO PRESCRIPTION NOTES). 2 each 09/23/2024 ActiveStart: 09-19-2024 End: 17-38-8663Zofqhpvsqt Glucose Sensor (FreeStyle Crystal 14 Day Sensor) misc Indications: Type 2 diabetes mellitus with microalbuminuria, with long-term current use of insulin (CMS/HCC) apply 1 SENSOR to back OF UPPER ARM REMOVE AND REPLACE every 14 d... (REFER TO PRESCRIPTION NOTES). 2 each 09/19/2024 09/23/2024 Discontinued (Reorder)Start: 18-69-6657Tmosbzzfpd Glucose Sensor (FreeStyle Crystal 14 Day Sensor[place] [facility] [place]ications: Type 2 diabetes mellitus with microalbuminuria, with long-term current use of insulin (CMS/HCC) apply 1 SENSOR to back OF UPPER ARM REMOVE AND REPLACE every 14 d... (REFER TO PRESCRIPTION NOTES). 2 each 09/19/2024 ActiveContinuous Glucose Sensor (FreeStyle Crystal 3 Sensor) misc (20 sources)Start: 64-53-0340Fpxkfknyeu Glucose Sensor (FreeStyle Crystal 3 Sensor) mis Indications: Type 2 diabetes mellitus with hyperglycemia, with long-term current use of insulin ([facility]) USE TO MONITOR BLOOD SUGAR DIRECTED. CHANGE SENSOR EVERY 14 DAYS. 1 each 05/04/2025 ActiveStart: 04-09-2025 End: 24-01-8682Liuvcwaozp Glucose Sensor (FreeStyle Crystal 3 Sensor) mis Indications: Type 2 diabetes mellitus with hyperglycemia, with long-term current use of insulin ([facility]) 1 Units 1 (one) time per week 1 each 04/09/2025 05/04/2025 DiscontinuedStart: 45-35-3308Jocbfnsklv Glucose Sensor (FreeStyle Crystal 3 Sensor) mis Indications: Type 2 diabetes mellitus with hyperglycemia, with long-term current use of insulin (HCC) 1 Units 1 (one) time per week 1 each 04/09/2025 ActiveStart: 68-89-6574Jgxfebbrzc Glucose Sensor (FreeStyle Crystal 3 Sensor) mis Indications: Type 2 diabetes mellitus with hyperglycemia, with long-term current use of insulin ([facility]) USE TO MONITOR BLOOD SUGAR DIRECTED. CHANGE SENSOR EVERY 14 DAYS. 2 each 11/04/2024 ActiveStart: 11-04-2024 Continuous Glucose Sensor (FreeStyle Crystal 3 Sensor[place] [facility] [place]ications: Type 2 diabetes mellitus with hyperglycemia, with long-term current use of insulin (CMS/HCC) USE TO MONITOR BLOOD SUGAR DIRECTED. CHANGE SENSOR EVERY 14 DAYS. 2 each 11/04/2024 ActiveStart: 62-60-3948Udehaebgfo Glucose Sensor (FreeStyle Crystal 3 Sensor) misc Indications: Type 2 diabetes mellitus with hyperglycemia, with long-term current use of insulin ([facility]) 1 each every 14 (fourteen) days 2 each 10/29/2024 ActiveStart: 42-91-2130Edipnxvdbc Glucose Sensor (FreeStyle Crystal 3 Sensor[place] [facility] [place]ications: Type 2 diabetes mellitus with hyperglycemia, with long-term current use of insulin ([facility]) 1 each every 14 (fourteen) days 2 each 09/25/2024 ActiveStart: 09-23-2024 End: 79-30-3316Xzjyywnlbd Glucose Sensor (FreeStyle Crystal 3 Sensor) [facility] [place]ications: Type 2 diabetes mellitus with hyperglycemia, with long-term current use of insulin ([facility]) 1 each every 14 (fourteen) days 2 each 09/23/2024 09/25/2024 Discontinued (Reorder)cyclobenzaprine hydrochloride 10 mg oral tablet (20 sources)Muscle RelaxantStart: 86-30-3188zwsn 1 tablet by mouth three times daily as needed for muscle spasmscyclobenzaprine (FLEXERIL) 10 mg tablet Take 1 tablet (10 mg total) by mouth 3 (three) times a day as needed for muscle spasms. 30 tablet 06/29/2024 Activedicyclomine hydrochloride 20 mg oral tablet (20 sources)AnticholinergicStart: 03-21-3937wfkg 1 tablet by mouth four times daily as neededdicyclomine (Bentyl) 20 MG tablet Indications: Irritable bowel syndrome with diarrhea TAKE 1 TABLETBY MOUTH FOUR TIMES DAILY NEEDED 60 tablet 10 10/15/2024 ActiveStart: 91-91-5656dire 1 tablet by mouth four times daily as neededdicyclomine (Bentyl) 20 MG tablet Indications: Irritable bowel syndrome with diarrhea TAKE 1 (ONE) TABLET BY MOUTH FOUR TIMES DAILY, NEEDED 60 tablet 10 11/17/2023 ActiveStart: 61-79-2792euym 1 tablet by mouth four times daily as neededdicyclomine (Bentyl) 20 MG tablet Take 20 mg by mouth 4 (four) times a day as needed. 0 01/18/2023 Activetake 1 tablet by mouth every six hours dicyclomine (BENTYL) 20 mg tablet Take 1 tablet (20 mg total) by mouth every 6 (six) hours. Activedulaglutide (Trulicity) 4.5 MG/0.5ML solution pen-injector (3 sources)Start: 22-32-2500vwnlcv 4.5 mg by subcutaneous injection every week dulaglutide (Trulicity) 4.5 MG/0.5ML solution pen-injector Indications: Type 2 diabetes mellitus with microalbuminuria, with long-term current use of insulin ([facility]) Inject 4.5 mg under the skin 1 (one) time per week 4 each 5 10/02/2023 Activeempagliflozin 25 mg oral tablet (20 sources)Sodium-Glucose Cotransporter 2 InhibitorStart: 77-50-2501xuzs 1 tablet by mouth once daily in the morningEmpagliflozin (Jardiance) 25 mg tablet Active 25 MG PO Every morning May 01, 2025 12:00am Complies with drug therapyStart: 11-07-2024 End: 60-18-1901pfcf 1 tablet by mouth once dailyempagliflozin (Jardiance) 25 MG Indications: Type 2 diabetes mellitus with hyperglycemia, with long-term current use of insulin ([facility]) Take 1 tablet (25 mg) by mouth Daily 30 tablet 5 11/07/2024 ActiveStart: 10-07-2024 End: 26-62-1738yiej 1 tablet by mouth in the morningempagliflozin (JARDIANCE) 10 mg tablet tablet Take 1 tablet (10 mg total) by mouth in the morning. 90 tablet 3 10/07/2024 Active0.4 ml enoxaparin sodium 100 mg/ml prefilled syringe (1 source)Low Molecular Weight HeparinStart: 61-50-7699nojhyo 40 mg by subcutaneous injection every twelve hours40 mg, subcutaneous, Every 12 hours, First dose (after last reorder) on Joaquina 12/21/23 at 0600, Look-alike/sound-alike medication - verify indication for use.fluconazole 150 mg oral tablet (20 sources)Azole AntifungalStart: 85-79-7531rlvw 1 tablet by mouth once fluconazole (Diflucan) 150 MG tablet Take 150 mg by mouth 1 (one) time 03/25/2024 ActiveStart: 09-29-2021 End: 49-09-5257unlhbsmjqmt (DIFLUCAN) tablet 200 mg Qoumqqvcgku-Nahdjiweu-Lligvavr (5 sources)Start: 27-84-9994Gpnogwrtbsr-Umeclidin-Vilanter (Trelegy Ellipta) 200-62.5-25 mcg blister with device Active 1 INH INHALATION Every morning May 01, 2025 12:00am Complies with drug therapyStart: 05-01-2025 zvhyubpjfqj-vccpihcut-nefhlqbx (TRELEGY ELLIPTA) 200-62.5-25 mcg blister with device (20 sources)Start: 83-73-0691oxdz 1 puff(s) by inhalation in the morning zrmkcmxdrmp-pprlhzbcr-gynhannp (TRELEGY ELLIPTA) 200-62.5-25 mcg blister with device Indications: Moderate persistent asthma without complication Inhale 1 puff in the morning. 60 each 03/21/2024 ActiveStart: 02-19-2024 End: 14-34-1397womd 1 puff(s) by inhalation in the morning nndfqksnrnv-egtpdxffo-aszkyhmh (TRELEGY ELLIPTA) 200-62.5-25 mcg blister with device Indications: Moderate persistent asthma without complication Inhale 1 puff in the morning. 60 each 02/19/2024 03/21/2024 Discontinued (Reorder) Start: 39-54-8296elhz 1 puff(s) by inhalation in the morning wsncznkfkpy-lkbhiidby-rhnxdcaj (TRELEGY ELLIPTA) 200-62.5-25 mcg blister with device Indications: Moderate persistent asthma without complication Inhale 1 puff in the morning. 60 each 02/19/2024 ActiveFREESTYLE CRYSTAL 14 DAY SENSOR kit (20 sources)Start: 40-55-8986FJOYVJSKU CRYSTAL 14 DAY SENSOR kit 08/14/2024 Active Start: 57-22-1919QMSMSGBSF CRYSTAL 14 DAY SENSOR kit APPLY 1 SENSOR TO BACK OF UPPER ARM. REMOVE AND REPLACE EVERY 14 DAYS 08/14/2024 Activefurosemide 40 mg oral tablet (20 sources)Loop DiureticStart: 92-85-2151tcpa 1 tablet by mouth once daily in the morningStart: 08-06-2024 End: 74-77-7803wurq 1 tablet by mouth once dailyfurosemide (Lasix) 40 MG tablet Indications: Chronic heart failure with preserved ejection fraction(HFpEF) ([facility]) Take 1 tablet (40 mg) by mouth Daily 30 tablet 5 11/07/2024 ActiveStart: 15-93-1775ujqc 1 tablet by mouth once dailyfurosemide (LASIX) 20 mg tablet Indications: Dyspnea on exertion , Pulmonary hypertension (CMS-HCC)Take 1 tablet (20 mg total) by mouth daily. 90 tablet 3 07/18/2024 Active End: 27-89-6654fwuc 1 tablet by mouth once daily as neededfurosemide (LASIX) 40 mg tablet Take 1 tablet (40 mg total) by mouth daily as needed. Has not been t aking med 07/18/2024 Discontinuedglucagon (rdna) 1 mg injection (2 sources)Antihypoglycemic AgentStart: mg, intramuscular, As needed, low blood sugar, [...] than 70 mg/dL after initial treatment, repeat treatment.Start: 35-46-9340whjvgwip (rDNA) injection 1 mg150 ml glucose 50 mg/ml injection (7 sources)Start: mL, intravenous, As needed, low blood sugar, blood glucose less than 70 mg/dL and unconscious orNPO with IV access, Starting on Mon12/20/23 at [...] treatment, repeat treatment. VESICANT (RED) Warning: HYPERTONIC solution.Start: 54-45-1301qojy 70 mg intravenously every wjys375 mL/hr, intravenous, Continuous PRN, blood glucose less than 70 mg/dL, Starting on Mon12/20/23 at 2211, Use immediately following dextrose 50% or glucagon treatment for patients who are unconscious or NPO. Contact prescriber for additional orders. If blood glucose is not greater than 70 mg/dL after initial treatment, repeat treatment.Start: g, oral, As needed, low blood sugar, blood glucose less than 70 mg/dL, Starting on Mon12/20/23 at 2211, If patient conscious and taking PO. If blood glucose is not greater than 70 mg/dL after initial treatment, repeat treatment.Start: 23-74-9301adqyvca (GLUTOSE) 40 % oral gel 15 gStart: 74-91-1766cttujzbu 5 % solutionStart: 78-36-0386kfgvxreb 50 % IV tbqadktx195 ml glucose 50 mg/ml / sodium chloride 4.5 mg/ml injection (1 source)Start: 73-77-2166ifbaknch 5 % and 0.45 % sodium chloride infusion1 ml heparin sodium, porcine 5000 unt/ml prefilled syringe (1 source)Unfractionated Heparin, Anti-coagulantStart: 94-47-2934tokafkn (porcine) injection 5,000 Unitshyoscyamine sulfate 0.125 mg oral tablet (1 source)hyoscyamine (ANASPAZ;LEVSIN) [address] 125 mcg under the tongue every 4 hours as needed for Cramping 0 Activeibuprofen 800 mg oral tablet (16 sources)Nonsteroidal Anti-inflammatory DrugStart: 66-65-2301wfnz 1 tablet by mouth every six hours for painibuprofen 800 MG tablet Indications: Pelvic pain in female TAKE 1 TABLET BY MOUTH EVERY 6 HOURS IF NEEDED FOR MILD PAIN FOR UP TO 30 DOSES 30 tablet 3 04/28/2025 Active End: 00-99-1347nbdh 1 tablet by mouth every six hours as needed for pain ibuprofen (ADVIL;MOTRIN) 600 MG tablet Take 600 mg by mouth every 6 hours as needed for Pain 0 10/02/2021 Discontinued (Stop Taking at Discharge)3 ml insulin aspart, human 100 unt/ml pen injector (20 sources)Insulin AnalogStart: 86-19-5763hggzuv 30-40 [IU] by subcutaneous injection once daily before mealtimeStart: 05-01-2025 End: 92-57-5134orxzup 1 dose by subcutaneous injection once before mealtime Insulin Aspart U-100 100 unit/mL (3 mL) insulin pen Discontinued 1 sliding scale dose SUBCUT 3x/Daybefore meals May 01, 2025 12:00am June 04, 2025 11:51amStart: 64-86-1623qmzxygr aspart FlexPen (NovoLOG) 100 UNIT/ML pen Indications: Type 2 diabetes mellitus with hyperglycemia, with long-term current use of insulin (HCC) INJECT SUBCUTANEOUSLY THREE TIMES A DAY PER SLIDING SCALE; *30 TO 40 UNITS DAILY* 15 mL 5 12/26/2024 ActiveStart: 08-05-2024 End: 61-75-5051foekdfi aspart FlexPen (NovoLOG) 100 UNIT/ML pen Indications: Type 2 diabetes mellitus with hyperglycemia, with long-term current use of insulin (CMS/HCC) INJECT SUBCUTANEOUSLY THREE TIMES A DAY PER SLIDING SCALE; *30 TO 40 UNITS DAILY* 15 mL 5 08/06/2024 ActiveStart: 08-10-2023 End: 23-81-6799vajnqox aspart FlexPen (NovoLOG) 100 UNIT/ML pen Indications: Type 2 diabetes mellitus with hyperglycemia, with long-term current use of insulin (CMS/HCC) INJECT SUBCUTANEOUSLY THREE TIMES A DAY PER SLIDING SCALE *30 TO 40 UNITS DAILY* 15 mL 11 08/10/2023 07/29/2024 Discontinued (Reorder)inject 0.07 mL by subcutaneous injection in the morninginsulin aspart U-100 (NovoLOG) 100 unit/mL injection Inject 0.07 mL (7 Units total) under the skin in the morning and 0.07 mL (7 Units total) at noon and 0.07 mL (7 Units total) in the evening. Inject before meals. 7 units this am. Activeinsulin aspart U-100 (NovoLOG) 100 unit/mL injection Inject under the skin 3 (three) times a day bef ore meals. Active3 ml insulin detemir 100 unt/ml pen injector (3 sources)Insulin AnalogStart: 09-07-2023 End: 36-01-0991fqmuyky detemir (Levemir FlexPen) 100 UNIT/ML pen Indications: Type 2 diabetes mellitus with microalbuminuria, with long-term current use of insulin (CMS/HCC) Inject 15 Units under the skin at bedtime 13.5 mL 3 09/07/2023 09/06/2024 Activeinsulin glargine 100 unt/ml injectable solution (20 sources)Insulin AnalogStart: 06-04-2025 End: 45-14-1666xbibzr 20 [IU] by subcutaneous injection twice dailyInsulin Glargine (Lantus U-100 Insulin) 100 unit/mL solution Active 20 UNIT SUBCUT Twice daily June 06, 2025 10:27am Complies with drug therapyStart: 02-10-2025 inject 20 [IU] by subcutaneous injection in the morninginsulin glargine (Semglee) 100 UNIT/ML pen Indications: Type 2 diabetes mellitus with hyperglycemia, with long-term current use of insulin (HCC) Inject 20 Units under the skin in the morning and 20 Units before bedtime. 15 mL 3 02/10/2025 Active Start: 11-12-2024 End: 14-55-1048ggoiblr glargine (Semglee) 100 UNIT/ML pen Indications: Type 2 diabetes mellitus with hyperglycemia, with long-term current use of insulin (CMS/HCC) Inject 15 Units under the skin in the morning. 3 mL 3 11/12/2024 02/10/2025 Discontinued (Reorder)Start: 88-87-0059pbdywcs glargine (Semglee) 100 UNIT/ML pen Indications: Type 2 diabetes mellitus with hyperglycemia, with long-term current use of insulin (CMS/HCC) Inject 15 Units under the skin in the morning. 3 mL 3 11/05/2024 ActiveStart: 85-78-7948mecuihm glargine (Semglee) 100 UNIT/ML pen Indications: Type 2 diabetes mellitus with hyperglycemia, with long-term current use of insulin (CMS/HCC) Inject 15 Units under the skin in the morning. 10/28/2024 ActiveStart: 10-23-2024 End: 85-87-2727cqopqav glargine (Semglee) 100 UNIT/ML pen Indications: Type 2 diabetes mellitus with hyperglycemia, with long-term current use of insulin (CMS/HCC) Inject 30 Units under the skin at bedtime 9 mL 5 10/23/2024 10/28/2024 Discontinued (Dose adjustment)Start: 68-77-7526notiyoh glargine (Semglee) 100 UNIT/ML pen Indications: Type 2 diabetes mellitus with hyperglycemia, with long- term current use of insulin (CMS/HCC) Inject 30 Units under the skin at bedtime 9 mL 5 07/24/2024 ActiveStart: 04-67-3312humjhfy glargine (Semglee) 100 UNIT/ML pen Indications: Type 2 diabetes mellitus with hyperglycemia, with long-term current use of insulin (CMS/HCC) Inject 30 Units under the skin at bedtime 9 mL 5 06/07/2024 ActiveStart: 05-29-2024 End: 42-00-4943skaqcgd glargine (Lantus SoloStar) 100 UNIT/ML pen Indications: Type 2 diabetes mellitus with microalbuminuria, with long-term current use of insulin (CMS/HCC) Inject 30 Units under the skin Daily 5 each 5 06/06/2024 06/07/2024 DiscontinuedStart: 24-77-5772ogdytl 15 [IU] by subcutaneous injection in the morninginsulin glargine (Lantus SoloStar) 100 UNIT/ML pen Indications: Type 2 diabetes mellitus with microalbuminuria, with long-term current use of insulin (CMS/HCC) Inject 15 Units under the skin in the morning and 15 Units before bedtime. 5 each 5 05/29/2024 ActiveStart: 05-78-9251xgrymu 15 [IU] by subcutaneous injection in the morninginsulin glargine (Lantus SoloStar) 100 UNIT/ML pen Indications: Type 2 diabetes mellitus with microalbuminuria, with long-term current use of insulin (CMS/HCC) Inject 15 Units under the skin in the morning and 15 Units before bedtime. 5 each 5 05/29/2024 ActiveStart: 04-05-2024 End: 00-75-6059jrcoxx 15 [IU] by subcutaneous injection in the morninginsulin glargine (Lantus SoloStar) 100 UNIT/ML pen Indications: Type 2 diabetes mellitus with microalbuminuria, with long-term current use of insulin (CMS/HCC) Inject 15 Units under the skin in the morning and 15 Units before bedtime. 5 each 05/09/2024 ActiveStart: Units, subcutaneous, Daily, First dose on Joaquina 12/21/23 at 0900, Look-alike/sound-alike medication- verify indication for use. Prime with 2 units of insulin prior to administration. Basal (long acting) insulin for subcutaneous administration only. Do not mix with any other insulin. Pre-filled pens stable 28 days at room temperature.Start: 45-14-1345mdovgzp glargine (LANTUS) injection vial 20 UnitsStart: 23-78-2313qdjnawa glargine (LANTUS) injection vial 10 UnitsStart: 04-16-2018 End: 95-21-5900kuhcwa 40 [IU] by subcutaneous injection twice dailyInsulin Glargine (Lantus U-100 Insulin) 100 unit/mL Solution Discontinued 40 UNIT SUBCUT Twice daily April 16, 2018 12:00am June 04, 2025 11:51aminject 0.15 mL by subcutaneous injection in the morninginsulin glargine (LANTUS) 100 unit/mL injection Inject 0.15 mL (15 Units total) under the skin in the morning. Active insulin glargine (LANTUS) 100 unit/mL injection Inject under the skin nightly. 0 Activeinsulin glargine (LANTUS SOLOSTAR) 100 UNIT/ML injection pen Inject into the skin 0 Active3 ml insulin lispro 100 unt/ml pen injector (6 sources)Insulin AnalogStart: 92-40-0466jilxjq 400 mg by subcutaneous injection three times daily at mealtime, then inject 2 [IU] by subcutaneous injection 15 minutes after mealtime2-10 Units, subcutaneous, 3 times daily with meals, First dose on Mon12/21/23 at 0800, Daytime hyperglycemia dosing. For blood glucose 151-200 mg/dL, give 2 units. For blood glucose 201-250 mg/dL, give 4 units. For blood glucose 251-300 mg/dL, give 6 units. For blood glucose 301- 350 mg/dL, give 8 units. For blood glucose 351-400 mg/dL, give 10 units. Give even if NPO or meals skipped. Do NOT givemore often then every 4 hours when NPO. Notify prescriber if blood glucose greater than 400 mg/dL. L ook-alike/sound-alike medication - verify indication for use. Prime with 2 units of insulin prior to administration. Prandial/supplemental Insulin. Pre-filled pens stable 28 days at room temperature.Insulin lispro should be administered within 15 minutes before or immediately after a meal.Start: 12-20-2023 End: 81-27-5429Yzyanqoo on Mon12/20/23 at 2234, For 1 dose, Emerson Dooley: shelia override Look-alike/sound-alike medication - verify indication for use. Prime with 2 units of insulin prior to administration. Prandial/supplemental Insulin. Pre-filled pens stable 28 days at room temperature. Insulin lispro should be administered within 15 minutes before or immediately after a meal. Start: 15-74-6904yeiqpt 400 mg by subcutaneous injection once daily, then inject 2 [IU] by subcutaneous injection 15minutes after mealtime2-8 Units, subcutaneous, Nightly, First dose on Mon12/20/23 at 2230, Bedtime hyperglycemia dosing. For blood glucose 201-250 mg/dL, give 2 units. For blood glucose 251-300 mg/dL, give 4 units. For blood glucose 301-350 mg/dL, give 6 units. For blood glucose 351-400 mg/dL, give 8 units. Give even ifNPO or meals skipped. Do NOT give more often then every 4 hours when NPO. Notify prescriber if blood glucose greater than 400 mg/dL. Look-alike/sound-alike medication - verify indication for use. Prime with 2 units of insulin prior to administration. Prandial/supplemental Insulin. Pre-filled pens stable 28 days at room temperature. Insulin lispro should be administered within 15 minutes before or immediately after a meal.Start: 09-29-2021 End: 38-64-8681qldhngv lispro (HUMALOG) injection vial 0-18 Units B-Yadgjhyqkonc-Ntyib-B12-B6 (Metanx) 3-90.314-2-35 MG capsule (9 sources)Start: 10-09-2024 End: 70-35-0920qamd 1 capsule by mouth in the tdefesuI-Houhrikxuyrc-Qbdsc-B12-B6 (Metanx) 3-90.314-2-35 MG capsule Indications: Diabetic polyneuropathy a ssociated with type 2 diabetes mellitus (CMS/HCC) , Neuritis Take 3 mg by mouth in the morning and 3 mg before bedtime. 180 capsule 3 10/09/2024 01/07/2025 ActivelamoTRIgine 200 mg oral tablet (20 sources)Mood Stabilizer, Anti-epileptic AgentStart: 14-90-3194xbpu 200 mg by mouth once daily for bnyvbtxhtw616 mg, oral, Daily, First dose on Joaquina 12/21/23 at 0900, Look-alike/sound-alike medication - verify indication for use., Indications: depression associated with bipolar disorderStart: 06-11-2018 End: 59-42-0897viia 1 tablet by mouth once daily at bedtimelanolin 1000 mg/ml topical cream (20 sources)Start: 29-29-0625ekkrhho (Lansinoh) cream Indications: Nipple pain Apply topically if needed for dry skin 7 g 09/27/2023 Activelidocaine 0.05 mg/mg medicated patch (4 sources)Antiarrhythmic, Amide Local AnestheticStart: 21-85-3804nfnwn 1 dose transdermal route every twelve hours in the morninglidocaine (LIDODERM) 5 % Place 1 patch on the skin in the morning. Remove & Discard patch within 12 hours or as directed by MD. 30 patch 07/24/2024 Activelisinopril 2.5 mg oral tablet (20 sources)Angiotensin Converting Enzyme InhibitorStart: 55-25-7350bxvx 1 tablet by mouth once daily in the morningLisinopril 2.5 mg tablet Active 2.5 MG PO Every morning May 01, 2025 12:00am Complies with drug therapyStart: 07-13-2023 End: 47-69-2794oumv 1 tablet by mouth once daily in the morningStart: 06-11-2018 End: 88-55-4082mesi 1 tablet by mouth once daily in the morningLisinopril 5 mg tablet Discontinued 5 MG PO Every morning June 11, 2018 12:00am May 01, 2025 10:36amloperamide hydrochloride 2 mg oral capsule (1 source)Opioid AgonistStart: 40-29-3268moigvvihmg (IMODIUM) capsule 2 mg LORazepam 1 mg oral tablet (20 sources)BenzodiazepineStart: 06-85-0492wyuf 1 tablet by mouth three times daily as needed for anxietyLorazepam 1 mg tablet Active 1 MG PO Three times daily as needed for anxiety June 04, 2025 12:00am Complies with drug therapy Start: 07-08-2024 End: 24-33-7385kzfg 1 tablet by mouth three times daily as neededLorazepam 1 mg tablet Active 1 MG PO Three times daily as needed June 04, 2025 12:00am Complieswith drug therapyStart: 04-19-2024 End: 03-94-8586sjrp 1 tablet by mouth three times daily as needed for anxiety LORazepam (Ativan) 1 MG tablet Indications: Anxiety state (CMS/HCC) TAKE 1 TABLET BY MOUTH 3 TIMES DAILY NEEDED FOR ANXIETY 90 tablet 05/16/2024 Active Start: 04-64-6405ahre 1 tablet by mouth three times daily as neededLORazepam (Ativan) 1 MG tablet Indications: Anxiety state (CMS/HCC) TAKE 1 TABLET BY MOUTH 3 TIMES DAILY NEEDED 90 tablet 1 09/20/2023 Gmjeck65 ml magnesium sulfate 40 mg/ml injection (3 sources)Start: ,000 mg, intravenous, at 25 mL/hr, Administer over 120 Minutes, As needed, Magnesium level 1.7 to 1.9 mg/dL, or Ionized Magnesium level 0.45 to 0.5 mmol/L., Starting on Mon12/20/23 at 2217, Recheck magnesium level 4 hours after infusion complete. With each magnesium result continue the replacementorders as needed.Start: ,000 mg, intravenous, at 25 mL/hr, Administer over 240 Minutes, As needed, Magnesium level 1.6 mg/dL or less, or Ionized Magnesium level 0.44 mmol/L or less, Starting on Mon12/20/23 at 2217, Recheckmagnesium level 4 hours after infusion complete. With each magnesium result continue the replacement orders as needed.Start: 89-00-7910dvjjfdkpm sulfate 1000 mg in dextrose 5% 100 mL IVPBmetoprolol tartrate 50 mg oral tablet (20 sources)beta-Adrenergic BlockerStart: 41-72-2005qikp 1 tablet by mouth once dailyMetoprolol Tartrate 50 mg tablet Active 50 MG PO Daily June 04, 2025 12:00am Complies with drugtherapyStart: 63-12-7616cawmosypvm tartrate (Lopressor) 50 MG tablet 07/31/2023 ActiveMisc. Devices misc (2 sources)Start: 65-44-3193Auyb. Devices misc Indications: Pre-op examination Dispense: Front Wheeled walker use 90 days. Ht: 5'1 Weight: 206 1 Units 06/03/2025 ActiveMOUNJARO 2.5 mg/0.5 mL pen injector (20 sources)Start: 10-07-2024 End: 35-08-0235acwmfa 5 mg by subcutaneous injection every weekMOUNJARO 2.5 mg/0.5 mL pen injector Indications: Type 2 diabetes mellitus with hyperglycemia, with long-term current use of insulin ([facility] [place]) Inject 5 mg under the skin once a week for 12 doses. 0.5 mL 3 10/07/2024 12/24/2024 Active End: 71-56-8671usbhji 2.5 mg by subcutaneous injection every weekMOUNJARO 2.5 mg/0.5 mL pen injector Inject 2.5 mg under the skin once a week. Monday10/07/2024 Discontinued (Reorder)inject 2.5 mg by subcutaneous injection every weekMOUNJARO 2.5 mg/0.5 mL pen injector Inject 2.5 mg under the skin once a week. Monday Activeinject 2.5 mg by subcutaneous injection every weekMOUNJARO 2.5 mg/0.5 mL pen injector Inject 2.5 mg under the skin once a week. Active MOUNJARO 2.5 mg/0.5 mL pen injector inject 2 & 1/2 milligrams subcutaneously ONCE EVERY WEEK Activenabumetone 500 mg oral tablet (20 sources)Nonsteroidal Anti-inflammatory DrugStart: 17-05-1727usgt 1 tablet by mouth twice daily as neededStart: 09-05-2023 End: 89-40-9506cwod 1 tablet by mouth twice daily as neededNabumetone 500 mg tablet Active 500 MG PO Twice daily as needed June 04, 2025 12:00am Complies with drug therapy End: 80-81-6156muza 1 tablet by mouth twice dailynabumetone (RELAFEN) 500 MG tablet Take 500 mg by mouth 2 times daily 0 10/02/2021 Discontinued (Stop Taking at Discharge)naproxen 500 mg oral tablet (20 sources)Nonsteroidal Anti-inflammatory DrugStart: 32-11-5200twlk 1 tablet by mouth in the morning, then take 1 tablet by mouth at mealtimenaproxen (NAPROSYN) 500 mg tablet Take 1 tablet (500 mg total) by mouth in the morning and 1 tablet(500 mg total) in the evening. Take with meals. 30 tablet 06/29/2024 Active End: 87-02-4327aglf 1 tablet by mouth twice daily at mealtimenaproxen (NAPROSYN) 500 MG tablet Take 500 mg by mouth 2 times daily (with meals) 0 10/02/2021 Discontinued (Stop Taking at Discharge)ofloxacin 3 mg/ml ophthalmic solution (20 sources)Quinolone AntimicrobialStart: 23-18-7019wizd 0.3 drop(s) into the eye(s) four times dailyStart: 34-37-5299kscvohvcm (Ocuflox) 0.3 % ophthalmic solution INSTILL 1 DROP INTO AFFECTED EYE X4/DAY DIRECTED START 3DAYS PRIOR TO SX,THEN IMMEDIATELY FOLLOWING SX EVERY HOUR W/A,THEN X4/DAY NEXT DAY TIL APPT *04/14* 03/06/2025 Activeondansetron 4 mg disintegrating oral tablet (20 sources)Serotonin-3 Receptor AntagonistStart: 57-23-8810zayn 1 tablet by mouth every six hours as needed for nausea and nauseaondansetron (Zofran) 4 MG tablet Indications: Nausea TAKE 1 TABLET BY MOUTH EVERY 6 HOURS NEEDEDFOR NAUSEA OR VOMITING 30 tablet 3 04/28/2025 ActiveStart: 06-87-2258xjfa 1 tablet by mouth every eight hours as needed for nauseaondansetron ODT (ZOFRAN ODT) 4 mg disintegrating tablet Dissolve 1 tablet (4 mg total) on tongue every 8 (eight) hours as needed for nausea for up to 10 doses. 10 tablet 10/27/2024 ActiveStart: 51-53-0300emfk 1 tablet by mouth every six hours as needed for nausea and vomitingStart: 03-19-2024 End: 01-61-3960lkeg 1 tablet by mouth every six hours as needed for nausea and vomiting and nausea and nauseaondansetron ODT (Zofran-ODT) 4 MG disintegrating tablet Indications: Nausea Take 1 tablet (4 mg) bymouth every 6 (six) hours if needed for nausea or vomiting 30 tablet 2 03/19/2024 04/24/2024 ExpiredStart: 52-46-2428gujb 4 mg intravenously every six hours as needed for nausea and vomiting4 mg, intravenous, Every 6 hours PRN, nausea, vomiting, Starting on Mon12/20/23 at 2211, Administerover 2-5 minutes.Start: 99-73-6343unozpkbpizr (ZOFRAN) injection 4 mg24 hr oxybutynin chloride 15 mg extended release oral tablet (20 sources)Cholinergic Muscarinic AntagonistStart: 36-18-4644vjgr 1 tablet by mouth once dailyStart: 06-19-2023 End: 39-50-8320enjh 1 tablet by mouth every twenty-four hours in the morning oxybutynin XL (Ditropan-XL) 15 MG 24 hr tablet Take 15 mg by mouth in the morning. 06/19/2023 Activepantoprazole 40 mg delayed release oral tablet (20 sources)Proton Pump InhibitorStart: 06-11-2018 End: 64-92-7145gtob 1 tablet by mouth once daily in the morningPantoprazole (Protonix) 40 mg Tablet,Delayed Release (Dr/Ec) Active 40 MG PO Every morning June 11, 2018 12:00am Complies with drug therapypioglitazone 45 mg oral tablet (20 sources)Peroxisome Proliferator Receptor alpha Agonist, Peroxisome Proliferator Receptor gamma Agonist, ThiazolidinedioneStart: 96-13-952131 mg, oral, Daily, First dose on Joaquina 12/21/23 at 0900, Hold dose and notify prescriber if blood glucose is less than 100 mg/dL or patient status has changed to NPO. Look-alike/sound-alike medication - verify indication for use.Start: 06-19-2023 End: 85-50-9446hcyo 1 tablet by mouth once daily in the morningpolyethylene glycol 3350 19576 mg powder for oral solution (1 source)Osmotic LaxativeStart: 78-43-0165kvwgqionsgnz glycol (GLYCOLAX) packet 17 gPotassium Chloride (3 sources)Start: 40-61-3438ctnrpvqwx chloride (K-TAB,KLOR-CON) CR tablet 30-50 mEqStart: 98-69-9760rgteoulqe chloride (KLOR-CON M) extended release tablet 40 mEqStart: 09-28-2021 End: 60-53-6607ivwovschm chloride 10 mEq/100 mL IVPB (Peripheral Line)prazosin 1 mg oral capsule (20 sources)alpha-Adrenergic BlockerStart: 18-43-7959gidb 2 mg by mouth once daily2 mg, oral, Nightly, First dose on Joaquina 12/21/23 at 2200Start: 06-19-2023 prazosin (Minipress) 2 MG capsule 06/19/2023 ActiveprednisoLONE acetate 10 mg/ml ophthalmic suspension (20 sources)CorticosteroidStart: 17-89-5263kywgwoodVHLM acetate (Pred-Forte) 1 % ophthalmic suspension INSTILL 1 DROP IN AFFECTED EYE EVERY HOUR WHILE AWAKE AFTER SURGERY THEN NEXT DAY 4 TIMES DAILY UNTIL APPOINTMENT *EFFECTIVE 04/14* 03/06/2025 ActiveSEMGLEE,INSULIN GLARG-YFGN,PEN 100 unit/mL (3 mL) insulin pen (9 sources)Start: 16-11-8068OSKWTEZ,INSULIN GLARG-YFGN,PEN 100 unit/mL (3 mL) insulin pen Inject into the appropriate muscle. 06/10/2024 Activesod sulf-pot chloride-mag sulf 1.479-0.188- 0.225 gram tablet (1 source)Start: 97-03-6515mzp sulf-pot chloride-mag sulf 1.479-0.188- 0.225 gram tablet Indications: Encounter for screening colonoscopy Please see instructional sheet given by physicians office. 24 tablet 08/21/2024 Zzygcg7354 ml sodium chloride 9 mg/ml injection (6 sources)Start: 14-84-2092xrtg 100 mL intravenously every wvdf333 mL/hr, intravenous, Continuous, Starting on Mon12/20/23 at 2215Start: 66-33-8732ykoz 20 mL intravenously every hour as jinksk00 mL/hr, intravenous, Continuous PRN, to maintain patency of lines, Starting on Mon12/20/23 at 2211Start: 82-50-2278gawg 25 mL intravenously every hour as odacka06 mL, intravenous, at 100 mL/hr, Administer over 15 Minutes, As needed, line care, line care afterIVPB administration, Starting on Mon12/20/23 at 2211Start: 12-20-2023 End: ,000 mL, intravenous, at 984 mL/hr, Administer over 61 Minutes, Once, On Mon12/20/23 at 1800, For 1 doseStart: mL, intravenous, As needed, line care, before and after each intermittent use, Starting on 12/03 at 1556Start: 09-29-2021 End: .9 % sodium chloride infusionsodium phosphate 10 mmol in dextrose 5 % 250 mL IVPB (1 source)Start: 40-27-7829gdrnjd phosphate 10 mmol in dextrose 5 % 250 mL IVPB SUMAtriptan 25 mg oral tablet (20 sources)Serotonin-1b and Serotonin-1d Receptor AgonistStart: 35-24-0130qofm 1 tablet by mouth every two hoursStart: 20-49-6533DCAQpgdlzaw (Imitrex) 25 MG tablet Indications: Migraine without aura and without status migrainosus, not intractable (CMS/HCC) TAKE 1 TABLET BY MOUTH NEEDED 9 tablet 10 03/18/2024 ActiveStart: 04-33-7262VHASkslcmum (Imitrex) 25 MG tablet Take 25 mg by mouth if needed. 0 06/19/2023 ActiveTirzepatide (Mounjaro) 2.5 MG/0.5ML solution pen-injector (20 sources)Start: 05-16-2024 End: 94-89-4330vtuopd 2.5 mg by subcutaneous injection every weekTirzepatide (Mounjaro) 2.5 MG/0.5ML solution pen-injector Indications: Type 2 diabetes mellitus with hyperglycemia, with long-term current use of insulin ([facility]) INJECT 2.5MG SUBCUTANEOUSLY ONCE WEEKLY 2 mL 5 05/16/2024 08/06/2024 DiscontinuedStart: 35-13-7950tqpysx 2.5 mg by subcutaneous injection every week Tirzepatide (Mounjaro) 2.5 MG/0.5ML solution pen-injector Indications: Type 2 diabetes mellitus with hyperglycemia, with long-term current use of insulin ([facility]) INJECT 2.5MG SUBCUTANEOUSLY ONCE WEEKLY 2 mL 5 05/16/2024 ActiveStart: 01-09-2024 End: 62-14-2988rhhvcq 2.5 mg by subcutaneous injection every weekTirzepatide (Mounjaro) 2.5 MG/0.5ML solution pen-injector Indications: Type 2 diabetes mellitus with microalbuminuria, with long-term current use of insulin ([facility]) Inject 2.5 mg under the skin 1 (one) time per week 2 mL 3 01/09/2024 05/13/2024 DiscontinuedStart: 96-12-7509aavpgh 2.5 mg by subcutaneous injection every week Tirzepatide (Mounjaro) 2.5 MG/0.5ML solution pen-injector Indications: Type 2 diabetes mellitus with microalbuminuria, with long-term current use of insulin (CMS/HCC) Inject 2.5 mg under the skin 1 (one) time per week 2 mL 3 01/09/2024 Activetirzepatide (MOUNJARO) 5 mg/0.5 mL pen injector (18 sources)Start: 61-78-6313zwcqqjqhzmv (MOUNJARO) 5 mg/0.5 mL pen injector Indications: Type 2 diabetes mellitus with hyperglycemia, with long-term current use of insulin (CMS-HCC) Inject 5 mg under the skin every 7 days. 6 mL3 10/07/2024 ActiveTirzepatide (Mounjaro) 5 MG/0.5ML solution pen-injector (20 sources)Start: 05-13-2024 End: 20-39-0524ujptaa 5 mg by subcutaneous injection every weekTirzepatide (Mounjaro) 5 MG/0.5ML solution pen-injector Indications: Type 2 diabetes mellitus with hyperglycemia, with long-term current use of insulin (CMS/HCC) Inject 5 mg under the skin 1 (one) time per week 2 mL 5 05/13/2024 08/06/2024 DiscontinuedStart: 29-51-3373jwugci 5 mg by subcutaneous injection every week Tirzepatide (Mounjaro) 5 MG/0.5ML solution pen-injector Indications: Type 2 diabetes mellitus with hyperglycemia, with long-term current use of insulin (CMS/HCC) Inject 5 mg under the skin 1 (one) time per week 2 mL 5 05/13/2024 ActiveStart: 05-13-2024 End: 10-32-8161sqoffw 5 mg by subcutaneous injection every weekTirzepatide (Mounjaro) 5 MG/0.5ML solution pen-injector Indications: Type 2 diabetes mellitus with hyperglycemia, with long-term current use of insulin (CMS/HCC) Inject 5 mg under the skin 1 (one) time per week 2 mL 5 05/13/2024 05/13/2024 Discontinued (Reorder)topiramate 25 mg oral capsule (20 sources)take 1 capsule by mouth in the morning, then take 1 capsule by mouth at bedtimetopiramate (TOPAMAX) 25 mg capsule Take 1 capsule (25 mg total) by mouth in the morning and 1 capsule (25 mg total) before bedtime. ActivetraZODone hydrochloride 150 mg oral tablet (20 sources)Serotonin Reuptake InhibitorStart: 96-44-0783kbmt 1 tablet by mouth once dailyStart: 76-68-3825rule 3 tablets by mouth once daily at bedtime as needed for sleepTRELEGY ELLIPTA 200-62.5-25 mcg blister with device (20 sources)Start: 36-49-1809ibzf 1 puff(s) by inhalation in the morningTRELEGY ELLIPTA 200-62.5-25 mcg blister with device Inhale 1 puff in the morning. 60 each 03/24/2025 ActiveStart: 02-17-2025 End: 00-58-5465umod 1 puff(s) by inhalation in the morningTRELEGY ELLIPTA 200-62.5-25 mcg blister with device Inhale 1 puff in the morning. 60 each 02/17/2025 03/24/2025 Discontinued (Reorder)Start: 53-69-8346klpy 1 puff(s) by inhalation in the morningTRELEGY ELLIPTA 200-62.5-25 mcg blister with device Inhale 1 puff in the morning. 60 each 02/17/2025 ActiveStart: 02-17-2025 End: 94-59-9223wlzu 1 puff(s) by inhalation in the morningTRELEGY ELLIPTA 200-62.5-25 mcg blister with device Inhale 1 puff in the morning. 60 each 02/17/2025 02/17/2025 DiscontinuedStart: 08-14-2024 End: 22-68-0739emmg 1 puff(s) by inhalation in the morningTRELEGY ELLIPTA 200-62.5-25 mcg blister with device Inhale 1 puff in the morning. 08/14/2024 02/17/2025 Discontinued (Reorder)Start: 89-11-4684knaw 1 puff(s) by inhalation in the morningTRELEGY ELLIPTA 200-62.5-25 mcg blister with device Inhale 1 puff in the morning. 08/14/2024 ActiveTrelegy Ellipta 200-62.5-25 MCG/ACT aerosol powder (20 sources)Start: 98-31-9608ibmj 1 puff(s) by inhalation in the morningTrelegy Ellipta 200-62.5-25 MCG/ACT aerosol powder Inhale 1 puff in the morning. 03/21/2024 ActiveTRULICITY 4.5 mg/0.5 mL pen injector (17 sources)Start: 16-66-0118wfchav 4.5 mg by subcutaneous injection every week TRULICITY 4.5 mg/0.5 mL pen injector INJECT 4.5 MG SUBCUTANEOUSLY ONCE EVERY WEEK 11/25/2023 Active Completed/Discontinued Medications MedicationDrug Class(es)DatesSig (Normalized)Sig (Original)acetaminophen 300 mg / codeine phosphate 30 mg oral tablet (1 source)Opioid Agonist End: 66-81-4927urgy 1 tablet by mouth every six hours as needed for pain acetaminophen-codeine (TYLENOL #3) 300-30 MG per tablet Take 1 tablet by mouth every 6 hours as needed for Pain. 0 10/02/2021 Discontinued (Stop Taking at Discharge)azithromycin (ZITHROMAX) 500 mg in dextrose 5% 250 mL IVPB (1 source)Start: 09-28-2021 End: 59-26-0053rivbmhfeyihd (ZITHROMAX) 500 mg in dextrose 5% 250 mL IVPB cefTRIAXone (ROCEPHIN) 1000 mg IVPB in 50 mL D5W minibag (1 source)Start: 09-28-2021 End: 75-93-3056jzuQZFEUhhd (ROCEPHIN) 1000 mg IVPB in 50 mL D5W minibag Continuous Blood Gluc Sensor (FreeStyle Crystal 14 Day Sensor) misc (20 sources)Start: 11-02-2023 End: 82-02-8558Ylfodxtqfm Blood Gluc Sensor (FreeStyle Crystal 14 Day Sensor) misc Indications: Type 2 diabetes mellitus with microalbuminuria, with long-term current use of insulin (CMS/HCC) apply 1 SENSOR to back OF UPPER ARM REMOVE AND REPLACE every 14 d... (REFER TO PRESCRIPTION NOTES). 2 each 11/02/202309/045 Discontinued (Reorder)Start: 76-72-5743Ubwxepkwax Blood Gluc Sensor (FreeStyle [place] 14 Day Sensor[place] [facility] [place]: Type 2 diabetes mellitus with microalbuminuria, with long-term current use of insulin (CMS/HCC) apply 1 SENSOR to back OF UPPER ARM REMOVE AND REPLACE every 14 d... (REFER TO PRESCRIPTION NOTES). 2 each 11/02/2023 ActiveStart: 13-40-9643Snuousliny Blood Gluc Sensor (FreeStyle Crystal 14 Day Sensor[place] [facility] [place] 1 SENSOR to back OF UPPER ARM REMOVE AND REPLACE every 14 d... (REFER TO PRESCRIPTION NOTES). 0 02/09/2023 Active0.5 ml dulaglutide 1.5 mg/ml auto-injector (20 sources)GLP-1 Receptor AgonistStart: 05-01-2025 End: 02-19-0561Guobirvyzup (Trulicity) 0.75 mg/0.5 mL pen injector Discontinued 0.75 MG SUBCUT Once a week May 01, 2025 12:00am June 04, 2025 11:40am Start: 28-08-5795Bygyqsszuau (Trulicity) 1.5 mg/0.5 mL pen injector Active 1.5 MG SUBCUT every week June 04, 2025 12:00am Complies with drug therapyStart: 03-12-2025 End: 77-58-2209noclta 0.75 mg by subcutaneous injection every weekTrulicity 0.75 MG/0.5ML solution auto-injector Indications: Type 2 diabetes mellitus with hyperglycemia, with long-term current use of insulin ([facility]) INJECT 0.75 MG SUBCUTANEOUSLY ONCE WEEKLY 2 mL 11 04/02/2025 04/24/2025 DiscontinuedStart: 01-01-2025 End: 13-99-6943wfoqrp 0.75 mg by subcutaneous injection every weekDulaglutide (Trulicity) 0.75 MG/0.5ML solution auto-injector Indications: Type 2 diabetes mellitus with hyperglycemia, with long-term current use of insulin (CMS/HCC) Inject 0.75 mg under the skin 1 (one) time per week 2 mL 2 01/01/2025 02/10/2025 DiscontinuedglipiZIDE 10 mg oral tablet (1 source)Sulfonylurea End: 59-62-1387atbf 1 tablet by mouth twice daily before mealtimeglipiZIDE (GLUCOTROL) 10 MG tablet Take 10 mg by mouth 2 times daily (before meals) 0 10/02/2021 Discontinued (Stop Taking at Discharge)insulin regular (HUMULIN R;NOVOLIN R) 100 Units in sodium chloride 0.9 % 100 mL infusion (1 source)Start: 09-28-2021 End: 54-43-3574jfuadxn regular (HUMULIN R;NOVOLIN R) 100 Units in sodium chloride 0.9 % 100 mL infusioninsulin, regular, human 100 unt/ml injectable solution (2 sources)InsulinStart: 12-20-2023 End: Units, subcutaneous, Once, On Mon12/20/23 at 1930, For 1 dose, Look-alike/sound-alike medication- verify indication for use. Prandial/supplemental insulin. Stable for 28 days at room temperature.Start: 12-20-2023 End: Units, subcutaneous, Once, On Mon12/20/23 at 1800, For 1 dose, Look-alike/sound-alike medication- verify indication for use. Prandial/supplemental insulin. Stable for 28 days at room temperature.iohexol (OMNIPAQUE 240) injection 50 mL (1 source)Start: 10-01-2021 End: 86-06-4714sgxkjno (OMNIPAQUE 240) injection 50 mLpotassium phosphate 30 mmol in dextrose 5 % 250 mL IVPB (1 source)Start: 10-01-2021 End: 54-42-7764kowqexvsl phosphate 30 mmol in dextrose 5 % 250 mL IVPBsertraline 100 mg oral tablet (20 sources)Serotonin Reuptake InhibitorStart: 01-22-2024 End: 61-56-8383nmcs 2 tablets by mouth once dailysertraline (Zoloft) 100 MG tablet Indications: JOHN (generalized anxiety disorder) (CMS/[facility]) Take 2 tablets (200 mg) by mouth Daily 60 tablet 11 01/22/2024 02/10/2025 DiscontinuedStart: 96-47-4585txhf 100 mg by mouth once mg, oral, Daily, First dose on Mon12/21/23 at 0900, Look-alike/sound-alike medication - verify indication for use. Start: 06-11-2018 End: 41-49-9134pzqf 1 tablet by mouth once daily in the morningSertraline (Zoloft) 100 mg Tablet Discontinued 100 MG PO Every morning June 11, 2018 12:00am June 04, 2025 11:44amtake 2 tablets by mouth in the morning sertraline (Zoloft) 100 MG tablet Take 200 mg by mouth in the morning. 0 Active sodium bicarbonate 100 mEq in dextrose 5 % 1,000 mL infusion (1 source)Start: 09-30-2021 End: 73-60-0626ccytry bicarbonate 100 mEq in dextrose 5 % 1,000 mL infusion Tirzepatide (Mounjaro) 2.5 MG/0.5ML solution auto-injector (11 sources)Start: 02-11-2025 End: 71-00-5613xdoztp 2.5 mg by subcutaneous injection every weekTirzepatide (Mounjaro) 2.5 MG/0.5ML solution auto-injector Indications: Type 2 diabetes mellitus with hyperglycemia, with long-term current use of insulin (HCC) Inject 2.5 mg under the skin 1 (one) time per week 2 mL 5 02/11/2025 03/05/2025 DiscontinuedStart: 21-81-9025daimdx 2.5 mg by subcutaneous injection every week Tirzepatide (Mounjaro) 2.5 MG/0.5ML solution auto-injector Indications: Type 2 diabetes mellitus with hyperglycemia, with long-term current use of insulin (HCC) Inject 2.5 mg under the skin 1 (one) time per week 2 mL 02/11/2025 ActiveStart: 33-31-0002cpzlzf 2.5 mg by subcutaneous injection every week Tirzepatide (Mounjaro) 2.5 MG/0.5ML solution auto-injector Indications: Type 2 diabetes mellitus with hyperglycemia, with long-term current use of insulin ([facility]/HCC) Inject 2.5 mg under the skin 1 (one) time per week 2 mL 5 02/10/2025 Active End: 46-30-0261Eshedmbsgqs (Mounjaro) 2.5 MG/0.5ML solution auto-injector Inject under the skin 03/05/2025 DiscontinuedTirzepatide (Mounjaro) 2.5 MG/0.5ML solution auto-injector Inject under the skin ActiveTirzepatide (Mounjaro) 7.5 MG/0.5ML solution auto-injector (16 sources)Start: 08-06-2024 End: 14-03-9884dbwqto 7.5 mg by subcutaneous injection every weekTirzepatide (Mounjaro) 7.5 MG/0.5ML solution auto-injector Indications: Type 2 diabetes mellitus with hyperglycemia, with long-term current use of insulin (CMS/HCC) Inject 7.5 mg under the skin 1 (one) time per week 2 mL 5 08/06/2024 10/28/2024 DiscontinuedStart: 28-85-1525yrmisi 7.5 mg by subcutaneous injection every week Tirzepatide (Mounjaro) 7.5 MG/0.5ML solution auto-injector Indications: Type 2 diabetes mellitus with hyperglycemia, with long-term current use of insulin (CMS/HCC) Inject 7.5 mg under the skin 1 (one) time per week 2 mL 5 08/06/2024 Active Problems Active Problems Problem ClassificationProblemDateDocumented DateEpisodic/ChronicAbdominal pain (7 sources)Unspecified abdominal pain; Translations: [Pain in female pelvis] Onset: 64-38-1205MsvrjiujCmopcass foot deformities (20 sources)Plantarflexion deformity of left foot; Translations: [Other acquired deformities of left foot]Onset: 561583-19-5892QvrzwdqgXzqmvkr disorders (20 sources)Anxiety disorder, unspecified; Translations: [Anxiety state]Onset: 763987-27-7616OlpupywMdbbwr (20 sources)Uncomplicated moderate persistent asthma; Translations: [Moderate persistent asthma, uncomplicated]Onset: 022203-66-7544HypabzyIvbamnyi (2 sources)Posterior subcapsular polar age-related cataract, left eye; Translations: [Posterior subcapsular polar age-related cataract, right eye] Onset: 13-01-6817JgczsrrPfuufgx obstructive pulmonary disease and bronchiectasis (20 sources)Acute exacerbation of chronic obstructive airways disease; Translations: [Chronic obstructive pulmonary disease with (acute) exacerbation] Onset: 07-21-2024 Resolved: 687263-38-1901TuxdzzdRrzgwtssep heart failure; nonhypertensive (20 sources)Chronic heart failure co-occurrent with normal ejection fraction; Translations: [Chronic diastolic (congestive) heart failure]Onset: 04-06-2023 22-11-0381NyqnxbkBblqfhzf mellitus with complications (20 sources)Type 1 diabetes mellitus; Translations: [Type 1 diabetes mellitus with ketoacidosis without coma]Onset: 09-30-2009 Resolved: 22-22-6408KlkxsgoZrxbeucxv of lipid metabolism (20 sources)Dyslipidemia; Translations: [Hyperlipidemia, unspecified]Onset: 737543-21-3716PevfyuyUnclznnprf disorders (20 sources)Gastroesophageal reflux disease; Translations: [Gastro-esophageal reflux disease without esophagitis]Onset: 310245-98-0783XppaztuVwdnfxiee hypertension (20 sources)Hypertensive disorder; Translations: [Essential (primary) hypertension]Onset: 466201-20-1895FmyuwibNvzim and electrolyte disorders (20 sources)Metabolic acidosis, increased anion gap (IAG); Translations: [Acidosis]Onset: 09-30-2021 Resolved: 66-65-7519AtogltqeLyahuxsn; including migraine (20 sources)Migraine without aura, not refractory ; Translations: [Migraine without aura, not intractable, without status migrainosus]Onset: 04-06-2023 04-26-4793KqjovufSjitiimz disorders (2 sources)Secondary immune deficiency disorder; Translations: [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 elsewhere (CMS/[facility])]66-61-1887NokhpynStryc disorders and dislocations; trauma-related (4 sources)Derangement of left knee; Translations: [Unspecified internal derangement of left knee]72-03-7596TjqjopuHyypj disorders and dislocations; trauma-related (4 sources)Acute tear of medial meniscus of left knee; Translations: [Other tear of medial meniscus, current injury, left knee, initial encounter]03-23-2025 EpisodicMenopausal disorders (20 sources)Menopausal and female climacteric states; Translations: [Menopausal flushing]Onset: 81-88-4621WwjtkxgPqbu disorders (20 sources)Major depressive disorder, recurrent, unspecified; Translations: [Recurrent major depressive episodes, mild ]Onset: hronic Osteoarthritis (20 sources)Unspecified osteoarthritis, unspecified site; Translations: [Osteoarthritis of knee]Onset: 480411-90-8565IxoxmheTlnwt acquired deformities (20 sources)Contracture of ankle joint; Translations: [Contracture, unspecified ankle]Onset: 587840-10-9388QdlysxvBhrbi aftercare (1 source)Other halfway (current) drug therapy; Translations: [OTH ROUSTABOUT SUPERVISOR CURRENT DRUG THERAPY]Onset: 72-88-9610GzecjylsQdvjb connective tissue disease (2 sources)Inflammatory neuropathy ; Translations: [Neuralgia and neuritis, unspecified]81-93-9840RgswngqbPyisu diseases of bladder and urethra (20 sources)Overactive bladder; Translations: [Overactive bladder]Onset: 642525-60-4999VllobkxSzean female genital disorders (1 source)Ovarian pain; Translations: [Other specified conditions associated with female genital organs and menstrual cycle]46-37-3953UofntrojQqsyu gastrointestinal disorders (1 source)Irritable bowel syndrome with diarrhea; Translations: [IRRITABLE BOWEL SYND W/DIARRHEA]Onset: 35-44-0337JgnmhuiSpthp gastrointestinal disorders (20 sources)Irritable bowel syndrome with diarrhea; Translations: [Irritable bowel syndrome with diarrhea]Onset: 165175-38-3584GzgakpuIpsrz gastrointestinal disorders (4 sources)Change in bowel habit; Translations: [CHANGE IN BOWEL HABIT]Onset: 15-06-9206FphwvnrtZmraj lower respiratory disease (4 sources)Dyspnea; Translations: [Shortness of breath]39-47-7345ZecycknwLvmkw lower respiratory disease (2 sources)Shortness of breathOnset: 58-67-3658IsqjvbqeYbxpz lower respiratory disease (1 source)Hypoxemia; Translations: [Hypoxemia]Onset: 44-39-4292GvzphhmqXzvau lower respiratory disease (1 source)CoughOnset: 50-31-3280ZpvolwjjJcrgh lower respiratory disease (1 source)WheezingOnset: 71-39-8698DgykjhasHeock nervous system disorders (20 sources)Chronic pain; Translations: [Other chronic pain]Onset: 04-06-2023 Resolved: 706556-72-4750GgsxedxCkcun nervous system disorders (20 sources)Carpal tunnel syndrome of right wrist; Translations: [Carpal tunnel syndrome, right upper limb]Onset: 233181-42-7744UwdcazeUvdqz nervous system disorders (1 source)Postoperative pain ; Translations: [Other acute postprocedural pain] 38-10-8454HqkwnqbjZoeqa non-traumatic joint disorders (20 sources)Derangement of left shoulder joint; Translations: [Other specific joint derangements of left shoulder, not elsewhere classified]Onset: 04-06-2023 16-14-1233YzkpackYmzpr non-traumatic joint disorders (2 sources)Pain of right wrist; Translations: [Pain in right wrist]05-30-2024 EpisodicOther nutritional; endocrine; and metabolic disorders (20 sources)Morbid obesity; Translations: [Morbid (severe) obesity due to excess calories]Onset: 608633-16-7065OxjozgjMjgzq nutritional; endocrine; and metabolic disorders (20 sources)Alveolar hypoventilation; Translations: [Morbid (severe) obesity with alveolar hypoventilation]Onset: 820126-26-8943QwewstiZgeie nutritional; endocrine; and metabolic disorders (20 sources)Body mass index 40+ - severely obese; Translations: [Body mass index (BMI) 45.0-49.9, adult]Onset: 06-05-2023 Resolved: 496441-73-6875XokgmkoAavsv nutritional; endocrine; and metabolic disorders (20 sources)Severe obesity; Translations: [Class 3 severe obesity due to excess calories with serious comorbidity and body mass index (BMI) of 40.0 to 44.9 in adult]Onset: 192850-46-4371YqtqxykNcgka nutritional; endocrine; and metabolic disorders (1 source)Morbid (severe) obesity due to excess calories; Translations: [Morbid (severe) obesity due to excess calories]Onset: 76-32-8141XoduzwmXyjwv nutritional; endocrine; and metabolic disorders (20 sources)Developmental delay; Translations: [Unspecified lack of expected normal physiological development in childhood]Onset: EpisodicOther upper respiratory disease (20 sources)Allergic rhinitis; Translations: [Allergic rhinitis, unspecified] Onset: 967282-62-1184SaotlvuSmegz upper respiratory disease (6 sources)Lesion of skin of nose; Translations: [Disorder of the skin and subcutaneous tissue, unspecified]EpisodicPulmonary heart disease (20 sources)Pulmonary hypertension; Translations: [Pulmonary hypertension, unspecified]Onset: 380815-19-3755KviljjyGdmjfmlv codes; unclassified (3 sources)Obstructive sleep apnea (adult) (pediatric); Translations: [OBSTRUCTIVE SLEEP APNEA]Onset: 74-73-7057GpwhjjhSbbzrxkr codes; unclassified (20 sources)Obstructive sleep apnea syndrome; Translations: [Obstructive sleep apnea (adult) (pediatric)]Onset: 558063-75-4408KtpilrxLsslvlns codes; unclassified (1 source)Sleep apneaOnset: 50-55-7832EqrnwodNcmrvyci codes; unclassified (2 sources)Pain; Translations: [Pain]Onset: 73-78-1766RlaiyldyMkkgisbn codes; unclassified (1 source)Unable to comply with treatment; Translations: [Noncompliance with CPAP treatment]32-85-8626EnqruhdmIqolmerhgal failure; insufficiency; arrest (adult) (20 sources)Chronic hypoxemic respiratory failure; Translations: [Chronic respiratory failure with hypoxia]Onset: 02-19-2024 Resolved: 790023-40-0837YbmqbiiCwevhiariez; intervertebral disc disorders; other back problems (20 sources)Spondylosis without myelopathy; Translations: [Spondylosis without myelopathy or radiculopathy, site unspecified]Onset: 340947-05-5946Ionxlpn Unclassified (2 sources)Post-op; Translations: [Post-op]Onset: 40-33-8865Mswxtsmgiqfc (3 sources)Patient encounter status; Translations: [Colon Cancer Screening] Onset: 869586-03-9852Mlcswelyajae (1 source)EMSOnset: 39-99-6357Mzerkriizioq (2 sources)Acute pain of left mpdx57-44-2217Ywacihlgeqde (1 source)Pulm HTNOnset: 33-53-8817Wcaajrudkqen (2 sources)L98.9 - Disorder of the skin and subcutaneous tissue, unspecified Viral infection (20 sources)Genital warts; Translations: [Anogenital (venereal) warts]Onset: 934785-27-0955Tqtlozei Past or Other Problems Problem ClassificationProblemDateDocumented DateEpisodic/ChronicAcute and unspecified renal failure (20 sources)Acute renal impairment; Translations: [Acute kidney failure with tubular necrosis]Onset: 09-30-2021 Resolved: 05-62-2001BpiwgughEgckzoorrptgqm/social admission (2 sources)Follow-up status; Translations: [Person consulting for explanation of examination or test findings]26-59-6270LpzyuizoQwdcbyntfo associated with dizziness or vertigo (1 source)Dizziness and giddiness; Translations: [Dizziness and giddiness]Onset: 00-08-5792XmwsoxwxMthrboeh atherosclerosis and other heart disease (20 sources)Preinfarction syndrome; Translations: [Unstable angina]Onset: 06-05-2023 Resolved: 895217-93-7521MzmcfjgMhjcgxqswvkdl disorders (20 sources)Developmental delay; Translations: [Developmental disorder of scholastic skills, unspecified]Onset: 09-30-2009 Resolved: 58-41-1243QgtjnlqNrauooaw mellitus without complication (20 sources)Type 2 diabetes mellitus; Translations: [Type 2 diabetes mellitus without complications]Onset: 09-30-2009 Resolved: 026326-36-4228YggwrxgYzzoheeq mellitus without complication (20 sources)Hyperglycemia; Translations: [Hyperglycemia, unspecified]Onset: 03-01-2019 Resolved: 064527-13-9706FdlmkdvtJlmhrnnigwghz and screening for infectious disease (1 source)Encounter for screening for human papillomavirus (HPV); Translations: [ENC SCREENING HUMAN PAPILLOMAVIRUS]Onset: 01-17-3360InotynmkLtshcygeshbvu (20 sources)Mediastinal lymphadenopathy; Translations: [Localized enlarged lymph nodes]Onset: 518389-02-3304FkpizcroPglgixcno disorders (20 sources)Irregular menstruation, unspecified; Translations: [Missed period] Onset: 09-16-2022 Resolved: 800369-36-0957PnjparuKgdw disorders (20 sources)Mood disordersOnset: Nausea and vomiting (20 sources)Nausea and vomiting; Translations: [Nausea with vomiting, unspecified]Onset: 483590-25-5960UjeufpfkKyxneyndomm chest pain (20 sources)Chest pain; Translations: [Other chest pain]Onset: 06-04-2023 Resolved: 941297-78-5912GgvnnxkxRrnpy aftercare (2 sources)group home (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 insulin; Translations: [RETIREMENT CURRENT USE OF INSULIN]Onset: 69-58-7616VisvyaxzIxray aftercare (20 sources)Long-term current use of drug therapy; Translations: [Other halfway (current) drug therapy]Onset: 426298-92-8184InnowvvnFxoyj and unspecified benign neoplasm (1 source)Polyp of colon; Translations: [Polyp of colon]Onset: 09-12-2024 EpisodicOther circulatory disease (20 sources)Elevated blood-pressure reading without diagnosis of hypertension; Translations: [Elevated blood-pressure reading, without diagnosis of hypertension]Onset: 720229-18-5849FibxdwbsRotmj gastrointestinal disorders (20 sources)Incontinence of feces; Translations: [Full incontinence of feces] Onset: 06-22-2016 Resolved: 367459-90-8883IogdxxhcWlinp lower respiratory disease (20 sources)Cavitation of lung; Translations: [Other disorders of lung]Onset: 08-10-2023 Resolved: 049000-56-4523QpboxfsuObsvc lower respiratory disease (20 sources)Hypoxia; Translations: [Hypoxemia]Onset: 01-04-2024 Resolved: 950502-65-2976RefylmdrHazdw lower respiratory disease (20 sources)Nodule of lung; Translations: [Solitary pulmonary nodule]Onset: 059323-42-5096QehbkeooMklpn lower respiratory disease (20 sources)Dyspnea on exertion; Translations: [Other forms of dyspnea]Onset: 880754-99-1988UumuovjaXbzpp lower respiratory disease (2 sources)Other forms of dyspnea; Translations: [Other forms of dyspnea]Onset: 13-59-1351BidroyxxRkmcq lower respiratory disease (1 source)Shortness of breath; Translations: [Shortness of breath]Onset: 67-92-3051VyhoeukjNpihb lower respiratory disease (1 source)Solitary pulmonary nodule; Translations: [Solitary pulmonary nodule] Onset: 07-04-0166PkvrtpfwApycn nervous system disorders (20 sources)Lesion of ulnar nerve, left upper limb; Translations: [Lesion of ulnar nerve]Onset: 11-04-2022 Resolved: 94-64-1108QrmybpgZvbmo nervous system disorders (20 sources)Carpal tunnel syndrome of left wrist; Translations: [Carpal tunnel syndrome, left upper limb]Onset: 04-06-2023 Resolved: 858562-16-3831AjdabuzHddud non-traumatic joint disorders (20 sources)Pain in left shoulder; Translations: [Pain in joint, shoulder region]Onset: 04-06-2023 Resolved: 680579-92-6345ThysnueiVhxda non-traumatic joint disorders (20 sources)Shoulder joint pain; Translations: [Pain in unspecified shoulder] Onset: 04-06-2021 Resolved: 393737-33-7946RsdedwnrQlbuo non-traumatic joint disorders (20 sources)Pain in right knee; Translations: [Pain in joint, lower leg]Onset: 05-16-2024 Resolved: 839442-81-9717TejzayowBescq non-traumatic joint disorders (1 source)Knee painOnset: 35-18-0303YyrajydsRvwkj conditions (20 sources)Convulsions in the ; Translations: [Convulsions of ] Onset: 09-30-2009 Resolved: 142561-50-5179YquxkahbTcvoa screening for suspected conditions (not mental disorders or infectious disease) (20 sources)Encounter for screening for malignant neoplasm of cervix; Translations: [Encounter for screening mammogram for malignant neoplasm of breast]Onset: 59-42-2230VydtruxoCjragbvla; thrombophlebitis and thromboembolism (1 source)Personal history of other venous thrombosis and embolism; Translations: [PERS HX OTH VENOUS THROMBOSIS AND EMBO]Onset: 73-52-2451Hvnpbxhc Pneumonia (except that caused by tuberculosis or sexually transmitted disease) (20 sources)Infective pneumonia; Translations: [Pneumonia, unspecified organism] Onset: 09-29-2021 Resolved: 06-40-2682PdcjihjnUnuxkwkey by other medications and drugs (1 source)Poisoning by insulin and oral hypoglycemic [antidiabetic] drugs, accidental (unintentional), initial encounter; Translations: [POISON INSULIN ORAL HG RX ACC INIT]Onset: 46-21-6209IsyerxpiIcfafhyrw heart disease (1 source)Personal history of pulmonary embolism; Translations: [PERSONAL HISTORY PULMONARY EMBOLISM]Onset: 07-71-9716GxnefgbnYdplbbwt codes; unclassified (1 source)Acquired absence of other specified parts of digestive tract; Translations: [ACQ ABSENCE OTH PART DIGESTV TRACT]Onset: 32-72-8538Gyyeoiar Residual codes; unclassified (20 sources)Edema; Translations: [Edema, unspecified]Onset: EpisodicResidual codes; unclassified (2 sources)Edema, generalized; Translations: [Generalized edema]05-13-2024 EpisodicResidual codes; unclassified (1 source)Generalized edema; Translations: [Generalized edema]Onset: 05-14-2024 EpisodicUrinary tract infections (20 sources)Acute cystitis; Translations: [Acute cystitis without hematuria] Onset: 730547-77-2610Pjlobikj Results Test NameValueInterpretationReference RangeFacilityCapillary blood glucose measurement by glucometer (mass/volume)Ordered By: Randall Soria on 05-64-9770Tcyjpbr [Mass/Vol]160 mg/dLNoLakeHealth Beachwood Medical Center Comment on above:Random Glucose Reference Range is dependent on time and content of last meal. Glucose of more than 200 mg/dL in a nonstressed, ambulatory subject supports the diagnosis of Diabetes Mellitus.Result Comment: Random Glucose Reference Range is dependent on time and content of last meal. Glucose of more than 200 mg/dL in a nonstressed, ambulatory subject supports the diagnosis of Diabetes Mellitus.Performed By: #### GLULS #### Point of Care testing ,Glucose Poct Glucometerson 66-06-5172Szgechm3Nmz6: Cleaned [facility] Physician GroupComment on above:Result Comment: PERFORMED BY: [facility] [address] [place] [address] PATHOLOGIST STERILE PROCESS COORDINATOR CHANDA ROBERTS M.D.Performed By: #### GLULS #### Point of Care testing ,No Panel InformationOrdered By: Randall Soria on 86-07-5865Wquouyu Glucose CommentGlu2: cleaned [facility] HospitalALL BASIC METABOLIC PANELon 23-90-8229Zlksl gap [Moles/Vol]7.9 mmol/LNOMS HealthcareCalcium [Mass/Vol]9 mg/dL8.5 - 10.1 mg/dLNOMS HealthcareChloride [Moles/Vol]98 mmol/L98 - 107 mmol/LNOMS HealthcareCO2 [Moles/Vol]30.6 mmol/L21.0 - 32.0 mmol/LNOMS HealthcareCreatinine [Mass/Vol]0.94 mg/dL0.55 - 1.02 mg/dLNONH Healthcare GFR/1.73 sq M.predicted CKD-EPI (S/P/Bld) [Vol rate/Area]>60>=60 mL/min/1.73m 2 NOMS HealthcareGlucose [Mass/Vol]393 mg/dANkga25 - 106 mg/dLNONH Healthcare Interpretation and review of laboratory resultsAbnormalNONH HealthcarePotassium [Moles/Vol]4.5 mmol/L3.5 - 5.1 mmol/LNOMS HealthcareSodium [Moles/Vol]132 mmol/L Avv624 - 145 mmol/LNOMS HealthcareTBH EGFR-NON AF LITHUANIAN>60>=60 mL/min/1.73m 2 NOMS HealthcareUrea nitrogen [Mass/Vol]25 mg/dLHigh7.0 - 18.0 mg/dLNONH HealthcareUrea nitrogen/Creatinine [Mass ratio]26.6 mg/mgNONH Healthcare CLINISYNCNONH HealthcareECG 12-LEADon 42-49-1025[address] [address] Electrocardiograph Report Signed Patient: CARISSA SANTOS MR#: [id number] : 1980 Acct:[id number] Age/Sex: 44 / F ADM Date: 06/05/25 Loc: PST Attending Dr: Feliz Benz D.O. Ordering Physician: Feliz Benz D.O. 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 Measurements Intervals [place] Rate: 85 P: 62 OK: 151 QRS: 109 QRSD: 89 T: 82 QT: 347 QTc: 413 Interpretive Statements SINUS RHYTHM POSSIBLE RIGHT VENTRICULAR HYPERTROPHY [SOME/ALL OF: PROMINENT R IN V1, LATE TRANSITION, RAD, LIAN, SSS] MODERATE T-WAVE ABNORMALITY, CONSIDER ANTERIOR ISCHEMIA [-0.1+ mV T WAVE IN V3/V4] Abnormal ECG Compared to ECG 03/16/2023 10:42:24 T-wave abnormality now present Possible ischemia now present Electronically Signed On 06-05-2025 11:48:00 EDT by HARINDER TORRES M.D. Dictated By: HARINDER TORRES Signed By: 06/05/25 1148 DD/ 0656 TD/TT: Nuclear Power Reactor Operator:TBHRadiology, Radiologist, MD - 06/05/[address] [address] Electrocardiograph Report Signed Patient: CARISSA SANTOS MR#: [id number] : 1980 Acct:[id number] Age/Sex: 44 / F ADM Date: 06/05/25 Loc: PST Attending Dr: Feliz Benz D.O. Ordering Physician: Feliz Benz D.O. 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 Measurements Intervals [place] Rate: 85 P: 62 OK: 151 QRS: 109 QRSD: 89 T: 82 QT: 347 QTc: 413 Interpretive Statements SINUS RHYTHM POSSIBLE RIGHT VENTRICULAR HYPERTROPHY [SOME/ALL OF: PROMINENT R IN V1, LATE TRANSITION, RAD, LIAN, SSS] MODERATE T-WAVE ABNORMALITY, CONSIDER ANTERIOR ISCHEMIA [-0.1+ mV T WAVE IN V3/V4] Abnormal ECG Compared to ECG 03/16/2023 10:42:24 T-wave abnormality now present Possible ischemia now present Electronically Signed On 06-05-2025 11:48:00 EDT by HARINDER TORRES M.D. Dictated By: HARINDER TORRES Signed By: 06/05/25 1148 DD/ 0656 TD/TT: Nuclear Power Reactor Operator: [facility] HealthcareRadiology Study observation (narrative)[facility] ServicesEC 12-LEAD Ordered By: Radiologist Radiology on 26-57-0535RDBISaint Francis Hospital & Health Services Work Phone: Glomerular filtration rate (GFR) estimation in non- AmericanOrdered By: Shama Medina on 02-82-6487HYR/1.73 sq M.predicted among non-blacks MDRD (S/P/Bld) [Vol rate/Area]mL/min/{1.73_m2}>=60 mL/min/1.73m 2FCleveland Clinic Union HospitalLaboratory - Chemistry and Chemistry - challengeOrdered By: Shama Medina on 79-92-7559Lfihorx [Mass/Vol]9.0 mg/dL 8.5-10.1FCleveland Clinic Union HospitalChloride [Moles/Vol]98 mmol/L98-107 [facility] HospitalCO2 [Moles/Vol]30.6 mmol/L21.0-32.0[facility] HospitalCreatinine [Mass/Vol]0.94 mg/dL0.55-1.02Prom[facility] Park HospitalGFR/1.73 sq M.predicted MDRD (S/P/Bld) [Vol rate/Area] mL/min/{1.73_m2}>=60 mL/min/1.73m 2FCleveland Clinic Union HospitalGlucose [Mass/Vol]393 mg/nIKuzf74-426NrvohbzgaPromedica Bay Park HospitalPotassium [Moles/Vol]4.5 mmol/L3.5-5.1FLakeHealth TriPoint Medical Centerodium [Moles/Vol] 132 mmol/OKpx818-324GqrorjhzzPromedica Bay Park HospitalUrea nitrogen [Mass/Vol] 25.0 mg/dLHigh7.0-18.0Promedica Bay Park HospitalUrea nitrogen/Creatinine [Mass ratio]26.6 mg/mgPike Community Hospitalerum or plasma anion gap determinationOrdered By: Shama Medina on 54-42-1366Ytimv gap [Moles/Vol]7.9 mmol/LFCleveland Clinic Union HospitalCapillary blood glucose measurement by glucometer (mass/volume)Ordered By: Randall Soria on 98-25-6249Ofcgscy [Mass/Vol]99 mg/dLNoLakeHealth Beachwood Medical CenterComment on above:Random Glucose Reference Range is dependent on time and content of last meal. Glucose of more than 200 mg/dL in a nonstressed, ambulatory subject supports the diagnosis of Diabetes Mellitus.Result Comment: Random Glucose Reference Range is dependent on time and content of last meal. Glucose of more than 200 mg/dL in a nonstressed, ambulatory subject supports the diagnosis of Diabetes Mellitus.Performed By: #### GLULS #### Point of Care testing ,Glucose Poct Glucometerson 74-12-2765Tzwddzj6Ulv8: Cleaned [facility] Physician GroupComment on above:Result Comment: PERFORMED BY: [facility] [address] [place] [address] PATHOLOGIST STERILE PROCESS COORDINATOR CHANDA ROBERTS M.D.Performed By: #### GLULS #### Point of Care testing ,No Panel InformationOrdered By: Randall Soria on 51-48-6449Cdosgpg Glucose CommentGlu2: cleaned White HospitalALL CBC WITH AUTO DIFFon 86-71-6560QKPXETHWE ABSOLUTE NXRX0KZKJ HealthcareBasophils/100 WBC (Bld) 0.3 %0.2 - 2.0 %NOMS [facility]oria City HospitalEosinophils/100 WBC (Bld)1.2 %0.9 - 7.0 %NOMCox BransonErythrocyte distribution width (RBC) [Ratio]12.7 %11.0 - 15.0 %NOMS [facility] City HospitalHematocrit (Bld) [Volume fraction]41.8 %36.0 - 48.0 %[facility] Hemoglobin (Bld) [Mass/Vol]13.2 g/dL12.0 - 16.0 g/dLNOEllett Memorial HospitalIMMATURE GRANULOCYTES ABS AUTO0.01NOMS HealthcareImmature granulocytes/100 WBC (Bld)0.1 % 0.0 - 0.5 %[facility] Health ServicesInterpretation and review of laboratory results AbnormalNOEllett Memorial HospitalLYMPHOCYTES ABSOLUTE AUTO2.5NOMS [facility] Lymphocytes/100 WBC (Bld)33.5 %20.5 - 60.0 %[facility]ibbon HospitalH (RBC) [Entitic mass]28.8 pg26.7 - 34.0 pgNOEllett Memorial HospitalMCHC (RBC) [Mass/Vol]31.6 g/dL29.9 - 35.2 g/dLSaint Francis Hospital & Health ServicesMCV (RBC) [Entitic vol]91.1 fL81.0 - 99.0 fLSaint Francis Hospital & Health ServicesMONOCYTES ABSOLUTE AUTO0.4NOMS HealthcareMonocytes/100 WBC (Bld)5.4 % 1.7 - 12.0 %[facility] ServicesNEUTROPHILS ABSOLUTE AUTO4.4NOEllett Memorial Hospital Neutrophils/100 WBC (Bld)59.5 %43.0 - 75.0 %[facility] Health ServicesPlatelet mean volume (Bld) [Entitic vol]9.3 fLLow9.5 - 13.5 fLNOEllett Memorial HospitalTBH EO #0.1NOMS HealthcareTB [id number] [facility] HospitalTB RBC4.59NOMS [facility] City HospitalTB WBC7.4NONH HealthcareCLINISYNCNOMS HealthcareUS PELVIS W/ TRANSVAGINALon 89-33-2739Y[address] [address] Ultrasound Report Signed Patient: CARISSA SANTOS MR#: [id number] : 1980 Acct:[id number] Age/Sex: 44 / F ADM Date: 04/24/25 Loc: US Attending Dr: Romana Whitmore Ordering Physician: Romana Whitmore Date of Service: 04/24/25 Procedure(s): US pelvis w/ transvaginal Accession Number(s): [id number] cc: Romana Whitmore; Diaz Dalton M.D. The [place] [id number] Patient Name: CARISSA SANTOS MRN: [id number] date: 1980 Sex: F Assigned Patient Location: Current Patient Location: [facility] Accession/Order Number: [id number] Exam Date: 04/24/2025 13:27 Report Date: 04/24/2025 16:10 At the request of: ROMANA WHITMORE Procedure: US pelvis w/ transvaginal Pelvic ultrasound [...] Torres M.D. 04/24/2025 4:10 PM Dictation Location: [place] [address] Electronically authenticated by: [id number] Y Date: 04/24/2025 16:10 Dictated By: Gallito Torres D.O. Signed By: 04/24/25 161 DD/ 09 TD/TT: Nuclear Power Reactor Operator:TBHRadiology, Radiologist, MD - 04/24/2025 [place] [address] Ultrasound Report Signed Patient: CARISSA SANTOS MR#: [id number] : 1980 Acct:[id number] Age/Sex: 44 / F ADM Date: 04/24/25 Loc: US Attending Dr: Romana Whitmore Ordering Physician: Romana Whitmore Date of Service: 04/24/25 Procedure(s): US pelvis w/ transvaginal Accession Number(s): [id number] cc: Romana Whitmore; Diaz Dalton M.D. [place] [id number] Patient Name: CARISSA SANTOS MRN: [facility]:[id number] date: 1980 Sex: F Assigned Patient Location: US Current Patient Location: MAMMO Accession/Order Number: [id number] Exam Date: 04/24/2025 13:27 Report Date: 04/24/2025 16:10 At the request of: ROMANA WHITMORE Procedure: US pelvis w/ transvaginal Pelvic ultrasound [...] Torres M.D. 04/24/2025 4:10 PM Dictation Location: [place] [address] Electronically authenticated by: [id number] Y Date: 04/24/2025 16:10 Dictated By: Gallito Torres D.O. Signed By: 04/24/259 DD/ 1610 TD/TT: Nuclear Power Reactor Operator: [facility] HealthcareRadiology Study observation (narrative)[facility] HealthcareUS PELVIS W/ TRANSVAGINALOrdered By: Radiologist Radiology on 99-58-3081WLZK Healthcare Work Phone: mr KNEE LT WO CONon 04-41-7108Xqs[address] [address] Magnetic Resonance Report Signed Patient: CARISSA SANTOS MR#: [id number] : 1980 Acct:[id number] Age/Sex: 44 / F ADM Date: 03/04/25 Loc: MRI Attending Dr: Shama KAPLAN Ordering Physician: Shama Medina Date of Service: 03/04/25 Procedure(s): MR knee LT wo con Accession Number(s): [id number] cc: Shama Medina; Diaz Dalton M.D. [place] [id number] Patient Name: CARISSA SANTOS MRN: [facility]:[id number] date: 1980 Sex: F Assigned Patient Location: MRI Current Patient Location: MRI Accession/Order Number: [id number] Exam Date: 03/04/2025 15:15 Report Date: 03/04/2025 [...] Torres M.D. 03/04/2025 3:29 PM Dictation Location: [place] [address] Electronically authenticated by: [id number] Y Date: 03/04/2025 15:29 Dictated By: Gallito Torres D.O. Signed By: 03/04/25 1532 DD/ 1529 TD/TT: Nuclear Power Reactor Operator:TBHRadiology, Radiologist, - 03/04/2025 [place] [address] Magnetic Resonance Report Signed Patient: CARISSA SANTOS MR#: [id number] : 1980 Acct:[id number] Age/Sex: 44 / F ADM Date: 03/04/25 Loc: MRI Attending Dr: Shama KAPLAN Ordering Physician: Shama Medina Date of Service: 03/04/25 Procedure(s): MR knee LT wo con Accession Number(s): [id number] cc: Shama Medina; Diaz Dalton M.D. The [place] [address] Patient Name: CARISSA SANTOS MRN: [id number] date: 1980 Sex: F Assigned Patient Location: MRI Current Patient Location: MRI Accession/Order Number: [id number] Exam Date: 03/04/2025 15:15 Report Date: 03/04/2025 [...] Torres M.D. 03/04/2025 3:29 PM Dictation Location: [employer]ENTERClear[facility] [employer] Electronically authenticated by: [id number] Y Date: 03/04/2025 15:29 Dictated By: Gallito Torres D.O. Signed By: 03/04/25 1532 DD/ 1529 TD/TT: Nuclear Power Reactor Operator: [facility] ServicesRadiology Study observation (narrative)[facility] KNEE LT WO CONOrdered By: Radiologist Radiology on 33-41-4827FYQQSaint [facility] Work Phone: XR Knee - left 1 or 2 Viewson 43-08-0666Jljtc result: AP and Lateral left knee: No acute fracture or dislocation [place] suspected distal femur Symmetric joint space preservation Mild effusion Impression: no acute bony process left knee.[facility] Radiology Study observation (narrative)[facility] Health ServicesHGB A1C (GLYCO-HGB)on 32-61-3587Rhnhbta [Mass/Vol]321 mg/dLNoalProCarrollton Regional Medical CenterComment on above:Performed By: #### HA1C #### [facility] ([id number]) [address], [address] [place], [place] [address]StD5l (Bld) [Mass fraction]12.8 %High4.4-5.6Tog[facility] VA Medical CenterComment on above:Result Comment: NOTE ADA Guidelines Result HgbA1c Normal : less than 5.7 % Prediabetes : 5.7 % to 6.4 % Diabetes : > 6.4 % Use with caution in patients with abnormal hemoglobin variants as the half-life of red blood cells and in vivo glycation rates are affected.Performed By: #### HA1C #### [facility] ([id number]) [address], [address] [place], [place] [address]BpU0n (Bld) [Mass fraction]on 82-96-7352Bkgsmjs glucose Estimated from glycated hemoglobin (Bld) [Mass/Vol]321 mg/dLSaint Francis Hospital & Health Services Comment on above:PERFORMED AT [place] [address] [facility]. [address],[place], [place] [address]Cqrelgmmmwnjto and review of laboratory resultsAbIredell Memorial HospitalHemoglobin A1con 53-82-6567ZtW2i (Bld) [Mass fraction] 12.8 %High4.4 - 5.6 %[facility] Health ServicesComment on above:NOTE ADA Guidelines Result HgbA1c Normal : less than 5.7 % Prediabetes : 5.7 % to 6.4 % Diabetes : > 6.4 % Use with caution in patients with abnormal hemoglobin variants as the half-life of red blood cells and in vivo glycation rates are affected. Beta hydroxybutyrate [Moles/Vol]on 89-65-4408ZzjkUvvpjwifqwrjqks1.14 mmol/LHigh 0.02-0.27T[facility] VA Medical CenterComment on above:Performed By: #### HA1C #### [facility] ([id number]) [address] [place] [address], [address] [place], [place] [address]PJF AND AUTO DIFFon 69-95-7641BPEAKFGU BASOPHIL0.0 X10E9/LNormal 0.0-0.2PWilson Memorial HospitalComment on above:Performed By: #### HA1C #### [facility] ([id number]) [address] [place] [address] [address] [place], [place] [address]SKUHAFJQ NEUTROPHIL3.5 X10E9/LNormal1.5-6.6T[facility] VA Medical CenterComment on above:Performed By: #### HA1C #### [facility] ([id number]) [address] [place] [address], [facility] [address] [place], [place] [address]Ymuvmljfe/100 WBC (Bld)0.5 %[facility] Comment on above:Performed By: #### HA1C #### [facility] ([id number]) [address] [place] [address] [address] [place], [place] [address]Nqwasbzidge (Bld) [#/Vol]0.1 10*3/uLNormal0.0-0.4T[facility] VA Medical CenterComment on above:Performed By: #### HA1C #### [facility] ([id number]) [address] [place] [address] [address] [place], [place] [address]Naonygrrbeu/100 WBC (Bld)0.8 %[facility] Comment on above:Performed By: #### HA1C #### [facility] ([id number]) [address], [address] [place], [place] [address]Spngcqrhdrj distribution width (RBC) [Ratio]13.8 %Normal 11.5-15.0Tog[facility] VA Medical CenterComment on above:Performed By: #### HA1C #### [facility] ([id number]) [address], [address] [place], [place] [address]Syboezalrd (Bld) [Volume fraction]44.0 %Zsapof20-42RhtHkrxkcCarrollton Regional Medical CenterComment on above:Performed By: #### HA1C #### [facility] ([id number]) [address], [address] [place], [place] [address]Pcikjzyukm (Bld) [Mass/Vol]15.1 g/tYUrtnbz37.7-15.5PWilson Memorial HospitalComment on above:Performed By: #### HA1C #### [facility] ([id number]) [address] [address] [place], [place] [address]Nhrthibfyjm (Bld) [#/Vol]2.7 10*3/uLNormal1.0-3.5PWilson Memorial HospitalComment on above:Performed By: #### HA1C #### [facility] ([id number]) [address] [address] [place], [place] [address]Ziwwcqteqac/100 WBC (Bld)39.7 %NormalProCarrollton Regional Medical Center Comment on above:Performed By: #### HA1C #### [facility] ([id number]) [address] [address] [place], [place] [address]CIS (RBC) [Entitic mass]28.7 mfHkwnmp68-97NfcPyxkvdCarrollton Regional Medical CenterComment on above:Performed By: #### HA1C #### [facility] ([id number]) [address], [address] [place], [place] [address]QPXC (RBC) [Mass/Vol]34.4 g/oALzumcz86-45ZkvPjugllCarrollton Regional Medical CenterComment on above:Performed By: #### HA1C #### [facility] ([id number]) [address], [address] [place] [address]AAT (RBC) [Entitic vol]84 iVSrkmhl05-447TloRavwke Fremont HospitalComment on above:Performed By: #### HA1C #### [facility] ([id number]) [address], [address] [place], [place] [address]Swameskta (Bld) [#/Vol]0.4 10*3/uLNormal0-0.9T[facility] VA Medical CenterComment on above:Performed By: #### HA1C #### [facility] ([id number]) [address], [address] [place], [place] [address]Amqizderl/100 WBC (Bld)6.5 %NormalTogus VA Medical Center Comment on above:Performed By: #### HA1C #### [facility] ([id number]) [address], [address] [place], [place] [address]Bqlvqnayuzc/100 WBC (Bld)52.5 %[facility] Comment on above:Performed By: #### HA1C #### [facility] ([id number]) [address], [address] [place], [place] [address]Ynvmewba mean volume (Bld) [Entitic vol]7.8 fLNormal7-12 [facility] Medical CenterComment on above:Performed By: #### HA1C #### [facility] ([id number]) [address], [address] [place] [address]Rljigjuww (Bld) [#/Vol]211 10*3/xEAvdbqc927-182HqnFjwvzt Fremont HospitalComment on above:Performed By: #### HA1C #### [facility] ([id number]) [address], [address] [place] [address]BGJ COUNT5.26 X10E12/LHigh3.80-5.20[facility] Comment on above:Performed By: #### CAITLIN #### [facility] ([id number]) [address], [address] [place] [address]YJN (Bld) [#/Vol]6.7 10*3/uLNormal4.0-11.0ProCarrollton Regional Medical CenterComment on above:Performed By: #### CAITLIN #### [facility] ([id number]) [address], [address] [place], [place] [address]WCKKNXSFRZZJN METABOLIC PANELon 50-26-4735Dnqtuvt [Mass/Vol]4.1 g/dLNormal3.2-5.3PWilson Memorial HospitalComment on above:Performed By: #### CAITLIN #### [facility] ([id number]) [address], [address] [place], [place] [address]WEZ [Catalytic activity/Vol]82 U/PFxnein02-639BluXewohoCarrollton Regional Medical CenterComment on above:Performed By: #### BALAJI1C #### [facility] ([id number]) [address], [address] [place], [place] [address]GNP [Catalytic activity/Vol]35 U/LHigh0-31PWilson Memorial HospitalComment on above:Performed By: #### BALAJI1C #### [facility] ([id number]) [address], [address] [place], [place] [address]Bxqro gap [Moles/Vol]9 mmol/LNormal5-15ProCarrollton Regional Medical CenterComment on above:Performed By: #### BALAJI1C #### [facility] [facility] ([id number]) [address], [address] [place], [place] [address]XGS [Catalytic activity/Vol]27 U/LNormal0-41ProCarrollton Regional Medical CenterComment on above:Performed By: #### HA1C #### [facility] ([id number]) [address], [address] [place], [place] [address]Sqczewlco [Mass/Vol]0.4 mg/dLNormal0.3-1.2PWilson Memorial HospitalComment on above:Performed By: #### HA1C #### [facility] ([id number]) [address], [address] [place], [place] [address]Hbeyxmr [Mass/Vol]9.2 mg/dLNormal8.5-10.5PWilson Memorial HospitalComment on above:Performed By: #### HA1C #### [facility] ([id number]) [address], [address] [place], [place] [address]Onioysyl [Moles/Vol]101 mmol/KRgppkm22-763PblRbzqmiCarrollton Regional Medical CenterComment on above:Performed By: #### HA1C #### [facility] ([id number]) [address], [address] [place], [place] [address]RN1 [Moles/Vol]26 mmol/LVufemu36-92JdrLtolfpWilson Memorial Hospital Comment on above:Performed By: #### HA1C #### [facility] ([id number]) [address], [address] [place], [place] [address]Ufexflnwtw [Mass/Vol]1.06 mg/dLHigh0.40-1.00ProCarrollton Regional Medical CenterComment on above:Result Comment: METHOD TRACEABLE TO IDMS STANDARD Performed By: #### HA1C #### [facility] ([id number]) [address], [address] [place], [place] [address]MEY/1.73 sq M.predicted among non-blacks MDRD (S/P/Bld) [Vol rate/Area]66 mL/min/{1.73_m2}Normal>59ProCarrollton Regional Medical CenterComment on above:Result Comment: Reported eGFR is based on the CKD-EPI 2020 equation that does not use a race coefficient.Performed By: #### BALAJI1C #### [facility] ([id number]) [address], [address] [place], [place] [address]Edjtpql [Mass/Vol]148 mg/dNFnwu32-49VqkUajfuzCarrollton Regional Medical Center Comment on above:Performed By: #### BALAJI1C #### [facility] ([id number]) [address], [address] [place] [address]Vmotmmddd [Moles/Vol]3.6 mmol/LNormal3.5-5.0ProCarrollton Regional Medical CenterComment on above:Performed By: #### BALAJI1C #### [facility] ([id number]) [address], [address] [place], [place] [address]Kjmzhhp [Mass/Vol]7.7 g/dLNormal6.0-8.0ProCarrollton Regional Medical CenterComment on above:Performed By: #### BALAJI1C #### [facility] ([id number]) [address], [address] [place], [place] [address]Zodspy [Moles/Vol]136 mmol/XExgsbw955-294VcwPolcuu [facility]remont HospitalComment on above:Performed By: #### BALAJI1C #### [facility] ([id number]) [address], [address] [place], [place] [address]Xreq nitrogen [Mass/Vol]28 mg/dLHigh5-23ProCarrollton Regional Medical CenterComment on above:Performed By: #### BALAJI1C #### [facility] ([id number]) [address], [address] [place], [place] [address]OVOSEWrl 35-94-6342Brehab [Catalytic activity/Vol]24 U/LNormal 17-40ProCarrollton Regional Medical CenterComment on above:Performed By: #### BALAJI1C #### [facility] ([id number]) [address], [address] [place], [place] [address]FRV MACROSCOPIC NURon 32-20-0892SFMTILCMD NURNegativeNormalNEG [facility] Medical CenterComment on above:Performed By: #### CAITLIN #### [facility] ([id number]) [address] [facility], [address] [place], [place] [address]ITLPT/HGB NURTraceAbnormalNEGProCarrollton Regional Medical CenterComment on above:Performed By: #### CAITLIN #### [facility] ([id number]) [address] [facility], [address] [place], [place] [address]QHVTOJN SMITHA>=1000AbnormalNEGProCarrollton Regional Medical CenterComment on above:Performed By: #### CAITLIN #### [facility] ([id number]) [address] [facility], [address] [place], [place] [address]GLBRWGP NURNegativeNormalNEGProCarrollton Regional Medical CenterComment on above:Performed By: #### CAITLIN #### [facility] ([id number]) [address] [facility], [address] [place], [place] [address]TDMBYGQXF ESTERASE NURNegativeNormalNEGTogus VA Medical CenterComment on above:Performed By: #### CAITLIN #### [facility] ([id number]) [address] [facility], [address] [place], [place] [address]UIJKYOC NURNegativeNormalNEGProCarrollton Regional Medical CenterComment on above:Performed By: #### CAITLIN #### [facility] ([id number]) [address] [facility], [address] [place], [place] [address]KW NUR5.2Bfufmo7.0-8.5ProMedica [facility] Medical CenterComment on above:Performed By: #### CAITLIN #### [facility] ([id number]) [address] [facility] [place], [place] [address]QJAEUDS NURNegativeNormalNEGProCarrollton Regional Medical CenterComment on above:Performed By: #### CAITLIN #### [facility] ([id number]) [address], [address] [place], [place] [address]RSLCARMK GRAVITY NUR1.408Qettrf3.003-1.035Togus VA Medical CenterComment on above:Performed By: #### HA1C #### [facility] ([id number]) [address] [facility] [place], [place] [address]FGOVMOSXQJCN NUR0.2 eu/dLNormal<1.1PWilson Memorial Hospital Comment on above:Performed By: #### HA1C #### [facility] ([id number]) [address] [facility] [place], [place] [address]KFEOWJ BLOOD GASon 74-34-3343AJTID'S TESTNormalProCarrollton Regional Medical CenterComment on above:Performed By: #### HA1C #### [facility] ([id number]) [address] [facility] [place], [place] [address]Nqrw excess Calc (Bld) [Moles/Vol]2.0 mmol/LNormal0.0-2.0 [facility] Medical CenterComment on above:Performed By: #### HA1C #### [facility] ([id number]) [address] [facility], [address] [place], [place] [address]Uqqw tgdqqpcxifm58.6 [degF]Heonoc87.0[facility] Comment on above:Performed By: #### HA1C #### [facility] ([id number]) [address], [address] [place], [place] [address]DKA5 (Bld) [Moles/Vol]27.7 mmol/LHigh20.0-24.0T[facility] VA Medical CenterComment on above:Performed By: #### HA1C #### [facility] ([id number]) [address] [facility], [address] [place], [place] [address]Fmrudf saturation in Blood48.0 %Low>80.0Togus VA Medical CenterComment on above:Performed By: #### HA1C #### [facility] ([id number]) [address], [address] [place], [place] [address]OZTFEL SOURCERoomAirNoBarney Children's Medical CenterComment on above:Performed By: #### HA1C #### [facility] ([id number]) [address], [address] [place], [place] [address]PMJ[address], OPKQCM08.1 YDTPLkfndy76-96BqjDceuqkTogus VA Medical Center Comment on above:Performed By: #### HA1C #### [facility] ([id number]) [address] [facility], [address] [place], [place] [address]EP, VENOUS7.363Gagcwf9.320-7.420[facility] Comment on above:Performed By: #### HA1C #### [facility] ([id number]) [address] [facility], [address] [place], [place] [address]NC4, GIQZCP95 YVVFKrt89-53LsbYyarjnTogus VA Medical CenterComment on above:Performed By: #### HA1C #### [facility] ([id number]) [address] [facility], [address] [place], [place] [address]KCCKGB SITEN/ANormalTogus VA Medical CenterComment on above: Performed By: #### HA1C #### [facility] ([id number]) [address], [address] [place], [place] [address]ZQDTEL TYPEVENOUSNoBarney Children's Medical CenterComment on above:Performed By: #### HA1C #### [facility] ([id number]) [address] [facility], [address] [place], [place] [address]Mhkpjztd Pathologyon 42-68-1026Bvunnitl PathologyCleveland Clinic Akron General Lodi HospitalComment on above:Result Comment: [facility] [address] [place] [address] Surgical Pathology Consultation Patient Name:CARISSA SANTOS:1980 (Age: 44)Gender:FTaken:09/12/2024Reported:09/17/2024Physician(s):Aliya Solorzano D.O. ([phone])Copy To: Rec. #:[id number]: #[id number] Final Pathologic Diagnosis Hepatic flexure polyp, biopsies: Fecal material, nondiagnostic. No colonic tissue present. Report Electronically Signed Out ssi/09/17/2024Surufina Lara M.D. [place] [address], License number: [id number]. Clinical History Screening Gross Description Received in formalin labeled ANGELA hepatic are pale-mims soft tissue fragments admixed with friable bits two material, 0.5 x 0.2 x 0.1 cm in aggregate. The specimen is filtered and entirely submitted in a single cassette. (1, ns, [id number],m4) DM. dm/09/13/2024WAK Specimen(s) Received Hepatic flexure polyp Fee Codes(s): 1; [address]SHB,APTIMA HPV,AGE GDLNon 15-92-7954ILQ GDLN ACOG TESTINGNote.NOMS HealthcareComment on above:TESTS RESULT FLAG UNITS REF RANGE LAB Clinician Provided Cytology Information Source.............Cervix;Endocervix No. of containers..01 ThinPrep Vial Age Tylero SHEA Keyla... FLAG LEGEND: L-Low Normal,H-High Normal,LL-Alert Low,HH-Alert High <-Panic Low,>-Panic High,A-Abnormal,AA-Critical Abnormal Performed at: 01 =[address] [address] Caroline Moore MD, HPV APTIMANegativeNegativeNOMS HealthcareComment on above:This nucleic acid amplification test detects fourteen high- risk HPV types (16,18,31,33,35,39,45,51,52,56,58,59,66,68) without differentiation. Performed at: =[address] [id number] [employer]: Caroline Moore MD, Phone: [phone] Performed at: [facility] [id number] [employer]: Caroline Moore MD, Phone: [phone] IGP, APTIMA HPV, RFX 16/18,45Note.NOMS HealthcareComment on above:TESTS RESULT FLAG UNITS REF RANGE LAB DIAGNOSIS: 02 NEGATIVE FOR INTRAEPITHELIAL LESION OR MALIGNANCY. Specimen adequacy: 02 Satisfactory for evaluation. Endocervical and/or squamous metaplastic cells (endocervical component) are present. Performed by: Saud Saravia, Rate Marker (ASCP) . 02 Note: Note 02 The [...] High,A-Abnormal,AA-Critical Abnormal Performed at: 02 [address] [facility] [address] [address] Caroline Moore MD, BRUSH-SPATULA CERVIX ENDOCERVIX CLINISYNCNOMS HealthcareBASIC METABOLIC PANLon 73-41-4253Jwuyp gap [Moles/Vol]8 mmol/LNormal5-15ProCarrollton Regional Medical CenterComment on above:Performed By: #### BMP ####[facility] ([id number])[address], [address], [place] [address]Ecpbnds [Mass/Vol]9.9 mg/dLNormal8.5-10.5PWilson Memorial HospitalComment on above:Performed By: #### BMP ####[facility] ([id number])[address], [address], [place] [address]Dydpwzbd [Moles/Vol]92 mmol/IGch08-726GznBmdhcxCarrollton Regional Medical CenterComment on above:Performed By: #### BMP ####[facility] ([id number])[address], [address], [place] [address]IB6 [Moles/Vol]32 mmol/FXfxnkj57-26HkbOwbkmaWilson Memorial HospitalComment on above:Performed By: #### BMP ####[facility] ([id number])[address] [address], [place] [address]Etaesqufwh [Mass/Vol]0.94 mg/dLNormal 0.40-1.00T[facility] VA Medical CenterComeaton rapids medical center on above:Result Comment: METHOD TRACEABLE TO IDMS STANDARDPerformed By: #### BMP ####[facility] ([id number])[address] [address]DLI/1.73 sq M.predicted among non-blacks MDRD (S/P/Bld) [Vol rate/Area]76 mL/min/{1.73_m2}Normal>59 ProMSierra Vista Regional Medical CenterComeaton rapids medical center on above:Result Comment: Reported eGFR is based on the CKD-EPI 2020 equation that does not use a race coefficient.Performed By: #### BMP ####[facility] ([id number])[address] [address] [place] [address]Kvjwosk [Mass/Vol]577 mg/dLCritically clal51-46HwdZboqxpCarrollton Regional Medical CenterComment on above:Performed By: #### BMP ####[facility] ([id number])[address] [address]Twomwjmwe [Moles/Vol]4.7 mmol/LNormal3.5-5.0ProCarrollton Regional Medical CenterComeaton rapids medical center on above:Performed By: #### BMP ####[facility] ([id number])[address] [address] [place] [address]Nzoonk [Moles/Vol]132 mmol/HGgh742-068MuwZioeykCarrollton Regional Medical CenterComment on above:Performed By: #### BMP ####[facility] ([id number])[address] [address] [place] [address]Mjvf nitrogen [Mass/Vol]25 mg/dLHigh5-23ProCarrollton Regional Medical CenterComment on above:Performed By: #### BMP ####[facility] ([id number])[address] [facility], [address], [place] [address]EZS AND AUTO DIFFon 86-56-4542FUTMWCSU BASOPHIL0.0 X10E9/LNormal0.0-0.2[facility] Comment on above:Performed By: #### 36832-1, , CBCA, CMP ####[facility] ([id number])[address] [place] [address]CULMSLOO NEUTROPHIL7.2 X10E9/LHigh1.5-6.6ProCarrollton Regional Medical CenterComment on above:Performed By: #### 55839-6, , CBCA, CMP ####[facility] ([id number])[address] [place] [address] Basophils/100 WBC (Bld)0.2 %NormalProCarrollton Regional Medical CenterComment on above: Performed By: #### 08437-9, , CBCA, CMP ####[facility] ([id number])[address] [place] [address]Vamejopdrga (Bld) [#/Vol]0.0 10*3/uLNormal0.0-0.4ProCarrollton Regional Medical CenterComment on above: Performed By: #### 10875-8, , CBCA, CMP ####[facility] ([id number])[address] [place] [address]Hrxfdcyygpf/100 WBC (Bld)0.2 %NormalTogus VA Medical CenterComment on above:Performed By: #### 08273-4, , CBCA, CMP ####[facility] ([id number])[address] [place] [address]Kavbpszxryi distribution width (RBC) [Ratio]13.5 %Bfoqxj11.5-15.0Togus VA Medical CenterComment on above: Performed By: #### 86969-2, , CBCA, CMP ####[facility] ([id number])[address] [place] [address]Iimpcavyfz (Bld) [Volume fraction]33.7 %Oqd08-77GhhYlydsyCarrollton Regional Medical CenterComment on above: Performed By: #### 18834-6, , CBCA, CMP ####[facility] ([id number])[address] [place] [address]Kdvxroddoe (Bld) [Mass/Vol]11.1 g/dLLow11.7-15.5PWilson Memorial HospitalComment on above: Performed By: #### 46224-2, , CBCA, CMP ####[facility] ([id number])[address] [place] [address]Kyyophtrriu (Bld) [#/Vol]2.2 10*3/uLNormal1.0-3.5PWilson Memorial HospitalComment on above: Performed By: #### 06613-5, , CBCA, CMP ####[facility] ([id number])[address] [place] [address]Xcgwkmluisz/100 WBC (Bld)21.9 %NormalProCarrollton Regional Medical CenterComment on above:Performed By: #### 38466-5, , CBCA, CMP ####[facility] ([id number])[address] [place] [address]HMH (RBC) [Entitic mass]28.7 pg Glzikm45-21QblRvwfruCarrollton Regional Medical CenterComment on above:Performed By: #### 32969- 0, , CBCA, CMP ####[facility] ([id number])[address] [place] [address]QEBO (RBC) [Mass/Vol]32.9 g/yDHhafgt45-92 [facility] VA Medical CenterComment on above:Performed By: #### 47425-5, , CBCA, CMP ####[facility] ([id number])[address] [place] [address]FJA (RBC) [Entitic vol]87 qJRzvuhz17-364OpzHmjqclTogus VA Medical CenterComment on above:Performed By: #### 18572-0, , CBCA, CMP ####[facility] ([id number])[address] [place] [address]Lpgopyrlx (Bld) [#/Vol]0.5 10*3/uLNormal0-0.9Togus VA Medical CenterComment on above:Performed By: #### 82343-9, , CBCA, CMP ####[facility] ([id number])[address] [place] [address]Agbvolzgc/100 WBC (Bld)5.4 %NormalTogus VA Medical CenterComeaton rapids medical center on above:Performed By: #### 20951-5, , CBCA, CMP ####[facility] ([id number])[address] [place] [address]Uxsxlktletk/100 WBC (Bld)72.3 %NormalTogus VA Medical CenterComment on above:Performed By: #### 67990-9, , CBCA, CMP ####[facility] ([id number])[address] [place] [address]Dwyxplxp mean volume (Bld) [Entitic vol]7.4 fLNormal7-12 [facility] Medical CenterComment on above:Performed By: #### 05359-9, , CBCA, CMP ####[facility] ([id number])[address] [place] [address]Zzouejufv (Bld) [#/Vol]190 10*3/bJRgnmhe297-937TvyFwxzri [facility]ont HospitalComment on above:Performed By: #### 61817-2, , CBCA, CMP ####[facility] ([id number])[address] [place] [address]LTI COUNT3.86 X10E12/LNormal3.80-5.20ProCarrollton Regional Medical CenterComment on above:Performed By: #### 48446-7, , CBCA, CMP ####[facility] ([id number])[address] [place] [address]HTW (Bld) [#/Vol]10.0 10*3/uLNormal4.0-11.0Togus VA Medical CenterComment on above:Performed By: #### 35164-2, , CBCA, CMP ####[facility] ([id number])[address] [place] [address]HIQNQNJXVRIPT METABOLIC PANELon 29-33-5019Pleuluj [Mass/Vol]3.3 g/dLNormal3.2-5.3ProMedGlendale Memorial Hospital and Health CenterComment on above: Performed By: #### 75210-6, , CBCA, CMP ####[facility] ([id number])[address] [place] [address]VVL [Catalytic activity/Vol]66 U/FXlfmom27-061UhiQwwxujCarrollton Regional Medical CenterComment on above: Performed By: #### 80712-4, , CBCA, CMP ####[facility] ([id number])[address], [place], [place] [address]RDG [Catalytic activity/Vol]16 U/LNormal0-31PWilson Memorial HospitalComment on above: Performed By: #### 80743-3, , CBCA, CMP ####[facility] ([id number])[address] [place] [address]Rplux gap [Moles/Vol]9 mmol/LNormal5-15ProCarrollton Regional Medical CenterComment on above: Performed By: #### 34931-2, , CBCA, CMP ####[facility] ([id number])[address] [place] [address]LMY [Catalytic activity/Vol]11 U/LNormal0-41ProCarrollton Regional Medical CenterComment on above: Performed By: #### 89244-8, , CBCA, CMP ####[facility] ([id number])[address] [place] [address], [place] [address]Kwkustcja [Mass/Vol]0.3 mg/dLNormal0.3-1.2PWilson Memorial HospitalComment on above: Performed By: #### 69297-1, , CBCA, CMP ####[facility] ([id number])[address] [place] [address]Rhvnapt [Mass/Vol]8.5 mg/dLNormal8.5-10.5PWilson Memorial HospitalComment on above: Performed By: #### 58073-7, , CBCA, CMP ####[facility] ([id number])[address] [place] [address], [place] [address]Nlituqsz [Moles/Vol]100 mmol/JCxlfrn27-041VclUuncgnCarrollton Regional Medical CenterComment on above: Performed By: #### 68134-5, , CBCA, CMP ####[facility] ([id number])[address] [place] [address]QY1 [Moles/Vol]24 mmol/OFtvhsw77-66GqwVuamlg [facility] HospitalComment on above:Performed By: #### 65283-8, RAMAKRISHNA, CMP ####[facility] ([id number])[address] [place] [address]Crfxsccryo [Mass/Vol]1.13 mg/dLHigh 0.40-1.00ProCarrollton Regional Medical CenterComment on above:Result Comment: METHOD TRACEABLE TO IDMS STANDARDPerformed By: #### 43229-6, RAMAKRISHNA, CMP ####[facility] ([id number])[address] [place] [address]UQN/1.73 sq M.predicted among non-blacks MDRD (S/P/Bld) [Vol rate/Area]61 mL/min/{1.73_m2}Normal>59ProCarrollton Regional Medical CenterComment on above:Result Comment: Reported eGFR is based on the CKD-EPI 2020 equation that does not use a race coefficient.Performed By: #### 88413-1, , RAMAKRISHNA, CMP ####[facility] ([id number])[address] [place] [address]Lburyfc [Mass/Vol]307 mg/xKNqwe08-88JjfUxawpmCarrollton Regional Medical CenterComment on above:Performed By: #### 06156-3, , RAMAKRISHNA, CMP ####[facility] ([id number])[address] [place] [address]Hxfhfobkw [Moles/Vol]4.2 mmol/LNormal3.5-5.0ProCarrollton Regional Medical CenterComment on above:Performed By: #### 39993-9, , RAMAKRISHNA, CMP ####[facility] ([id number])[address] [place] [address]Pkmkwyw [Mass/Vol]6.0 g/dLNormal6.0-8.0Togus VA Medical CenterComment on above:Performed By: #### 88703-5, 53987-2, RAMAKRISHNA, CMP ####[facility] ([id number])[address] [place] [address]Yrvphw [Moles/Vol]133 mmol/BKuz416-075YkfRtqpwvCarrollton Regional Medical CenterComment on above:Performed By: #### 56571-2, 44829-3, RAMAKRISHNA, CMP ####[facility] ([id number])[address] [place] [address] 41219Peri nitrogen [Mass/Vol]42 mg/dLHigh5-23ProCarrollton Regional Medical CenterComment on above:Performed By: #### 92938-5, 18335-2, RAMAKRISHNA, CMP ####[facility] ([id number])[address] [place] [address] 99242Twrwyrc Glucometer (BldC) [Mass/Vol]on 93-48-1014Mnzeoyk [Mass/Vol]169 mg/gGLcau88-80XgjAbikguTogus VA Medical CenterGlucose [Mass/Vol]260 mg/aFPaxz66-80FzjMhqplxTogus VA Medical CenterMAGNESIUMon 55-07-5312Wdiuowpwj [Mass/Vol]2.2 mg/dLNormal1.8-2.6T[facility] VA Medical CenterComment on above: Performed By: #### 12203-9, 78988-0, CBCDesire, CMP ####[facility] ([id number])[address] [place] [address] 84006Mvfsbvcfwrpko [place] [Mass/Vol]on 76-03-7510HBTIWPPCSDXSF0.20 ng/mLHigh<0.05T[facility]us VA Medical CenterComment on above:Result Comment: NOTE <0.50 ng/mL - Low risk of severe sepsis and/or septic shock. <2.00 ng/mL - Recommend retesting within 6-24 hours. >2.00 ng/mL - High risk of sepsis and/or septic shock.Performed By: #### 72933- 0, , CBCA, CMP ####[facility] ([id number])[address] [place] [address] 27048NEW AND AUTO DIFFon 98-83-9806JMHKFPPK BASOPHIL0.0 X10E9/LNormal0.0-0.2[facility] CenterComment on above: Performed By: #### CMP, , CBCA ####[facility] ([id number])[address] [place] [address] 38596#### HA1C ####[facility] ([id number])[address], [address] [place] [address] 87611PTLUAVJD NEUTROPHIL7.1 X10E9/LHigh1.5-6.6ProCarrollton Regional Medical CenterComment on above:Performed By: #### TIFF, , CBCA ####[facility] ([id number])[address] [place] [address] 97811#### HA1C ####[facility] ([id number])[address], [address] [place] [address] 18018Xaengjocu/100 WBC (Bld)0.1 %NormalProCarrollton Regional Medical CenterComment on above:Performed By: #### CMP, , CBCA ####[facility] ([id number])[address] [place] [address] 32243#### HA1C ####[facility] ([id number])[address], [address] [place] [address] 75805Fxysrikngml (Bld) [#/Vol]0.0 10*3/uLNormal0.0-0.4ProCarrollton Regional Medical CenterComeaton rapids medical center on above:Performed By: #### CMP, , CBCA ####[facility] ([id number])[address] [place] [address] 46013#### HA1C ####[facility] ([id number])[address] [facility], [address] [place] [address] 96862Ilktvuekfuu/100 WBC (Bld)0.0 %NormalProCarrollton Regional Medical CenterComment on above:Performed By: #### TIFF, , CBCA ####[facility] ([id number])[address] [place] [address] 45716#### HARiana ####[facility] ([id number])[address] [facility], [address] [place] [address] 72441Jxgucbumvrp distribution width (RBC) [Ratio]13.2 % Rabloi50.5-15.0ProCarrollton Regional Medical CenterComment on above:Performed By: #### TIFF, , CBCA ####[facility] ([id number])[address] [place] [address] 66918#### HARiana ####[facility] ([id number])[address] [facility], [address] [place] [address] 02135Kkvmptbrdr (Bld) [Volume fraction]37.6 %Nstill40-37FpeZnmqduCarrollton Regional Medical CenterComment on above:Performed By: #### TIFF, , CBCA ####[facility] ([id number])[address] [place] [address] 23216#### HA1C ####[facility] ([id number])[address] [facility], [address] [place] [address] 52621Mzbxqfaueq (Bld) [Mass/Vol]12.4 g/sDVuqisz22.7-15.5PWilson Memorial HospitalComment on above: Performed By: #### TIFF, , CBCA ####[facility] ([id number])[address] [place] [address] 55168#### HA1C ####[facility] ([id number])0 [facility], [address], [place] [address]Icmijualjfg (Bld) [#/Vol]0.5 10*3/uLLow1.0-3.5[facility] Comment on above:Performed By: #### TIFF, 76404-7, CBCA ####[facility] ([id number])[address] [place] [address] 31669#### HA1C ####[facility] ([id number])[address] [facility], [address] [place] [address] 79100Njmbyylripk/100 WBC (Bld)6.8 %NormalProCarrollton Regional Medical CenterComment on above:Performed By: #### TIFF, , CBCA ####[facility] ([id number])[address] [place] [address] 39433#### HA1C ####[facility] ([id number])0 [facility], [address] [place] [address] 23275ZLX (RBC) [Entitic mass]28.9 vsJmugas63-89VjsBetmiiCarrollton Regional Medical CenterComment on above:Performed By: #### CMP, , CBCA ####[facility] ([id number])[address] [place] [address] 12972#### HA1C ####[facility] ([id number])0 [facility], [address], [place] [address]DPNY (RBC) [Mass/Vol]33.1 g/tPSgqtiv80-39QlzUxlsbpCarrollton Regional Medical CenterComment on above:Performed By: #### CMP, , CBCA ####[facility] ([id number])[address] [place] [address] 20207#### HA1C ####[facility] ([id number])[address] [facility], [address] [place] [address] 72322EYN (RBC) [Entitic vol]87 mUMndwwx01-839IvtPupabi [facility]remont HospitalComment on above:Performed By: #### TIFF, , CBCA ####[facility] ([id number])[address] [place] [address] 21414#### HA1C ####[facility] ([id number])0 [facility], [address] [place] [address] 21695Mgrwvuevj (Bld) [#/Vol]0.1 10*3/uLNormal0-0.9ProCarrollton Regional Medical CenterComment on above:Performed By: #### TIFF, , CBCA ####[facility] ([id number])[address] [place] [address] 40068#### HA1C ####[facility] ([id number])0 [facility] [address] [place] [address] 46450Ysmuapkae/100 WBC (Bld)0.8 %NormalProCarrollton Regional Medical CenterComment on above:Performed By: #### TIFF, , CBCA ####[facility] ([id number])[address] [place] [address] 79112#### HA1C ####[facility] ([id number])0 [facility], [address] [place] [address] 18068Glbeklcdzie/100 WBC (Bld) 92.3 %NormalProCarrollton Regional Medical CenterComment on above:Performed By: #### CMP, , CBCA ####[facility] ([id number])[address] [place] [address] 92521#### HA1C ####[facility] ([id number])[address], [place] [address]Zfoasfbd mean volume (Bld) [Entitic vol]7.5 fLNormal7-12Pro[facility]ica [facility] Medical CenterComment on above: Performed By: #### TIFF, 31505-8, CBCA ####[facility] ([id number])[address] [place] [address] 39940#### HA1C ####[facility] ([id number])[address], [address] [place] [address] 17395Wxvshwhdp (Bld) [#/Vol]171 10*3/aJVszoig962-681AhkQupead [facility] Comment on above:Performed By: #### TIFF, 69619-8, CBCA ####[facility] ([id number])[address] [place] [address] 59832#### HA1C ####[facility] ([id number])[address] [facility], [address] [place] [address] 84510CWG COUNT4.31 X10E12/LNormal3.80-5.20ProTrinity Health System West Campusca [facility] Medical CenterComment on above:Performed By: #### TIFF, 89361-9, CBCA ####[facility] ([id number])[address] [place] [address] 17256#### HA1C ####[facility] ([id number])[address], [address] [place] [address] 09207OFM (Bld) [#/Vol]7.7 10*3/uLNormal4.0-11.0ProCarrollton Regional Medical CenterComment on above:Performed By: #### TIFF, 86000-7, CBCA ####[facility] ([id number])[address] [place] [address] 93532#### HA1C ####[facility] ([id number])[address], [address], [place] [address]CUODNGBMENBFG METABOLIC PANELon 20-95-7669Jequwpc [Mass/Vol]3.5 g/dLNormal3.2-5.3PWilson Memorial HospitalComment on above:Performed By: #### TIFF, , CBCA ####[facility] ([id number])[address] [place] [address] 78716#### HA1C ####[facility] ([id number])0 [facility], [address], [place] [address]STD [Catalytic activity/Vol]80 U/GJqtvoi03-571WciHqcofsCarrollton Regional Medical CenterComment on above:Performed By: #### TIFF, , CBCA ####[facility] ([id number])[address] [place] [address] 04423#### HA1C ####[facility] ([id number])[address], [address], [place] [address]IFA [Catalytic activity/Vol]U/LNormal0-31PWilson Memorial HospitalComment on above:Performed By: #### TIFF, , CBCA ####[facility] ([id number])[address] [place] [address] 27304#### HA1C ####[facility] ([id number])[address], [address], [place] [address]Jxrwl gap [Moles/Vol]16 mmol/LHigh5-15ProCarrollton Regional Medical CenterComment on above:Performed By: #### TIFF, , CBCA ####[facility] ([id number])[address] [place] [address] 37502#### HA1C ####[facility] ([id number])[address] [facility], [address], [place] [address]YOJ [Catalytic activity/Vol]26 U/LNormal0-41ProCarrollton Regional Medical CenterComment on above: Performed By: #### TIFF, , CBCA ####[facility] ([id number])[address] [place] [address] 75165#### HA1C ####[facility] ([id number])[address] [facility], [address], [place] [address]Eesltrmeg [Mass/Vol]0.4 mg/dLNormal0.3-1.2PWilson Memorial HospitalComment on above:Performed By: #### TIFF, , CBCA ####[facility] ([id number])[address] [place] [address] 29785#### HARiana ####[facility] ([id number])[address] [facility], [address], [place] [address]Smxptph [Mass/Vol]8.9 mg/dLNormal8.5-10.5PWilson Memorial HospitalComment on above:Performed By: #### TIFF, , CBCA ####[facility] ([id number])[address] [place] [address] 29053#### HARiana ####[facility] ([id number])[address] [facility], [address], [place] [address]Qmksxjji [Moles/Vol]99 mmol/QTphvom12-889EwtSgvbhsCarrollton Regional Medical CenterComment on above:Performed By: #### TIFF, , CBCA ####[facility] ([id number])[address] [place] [address] 00175#### HA1C ####[facility] ([id number])[address] [facility], [address] [place], [place] [address]XK3 [Moles/Vol]20 mmol/EEsz58-89BfvUpbakf [facility] CenterComment on above:Performed By: #### TIFF, 24518-8, CBCA ####[facility] ([id number])[address] [place] [address] 98282#### HA1C ####[facility] ([id number])[address], [place] [address]Qulzhkmeel [Mass/Vol]1.14 mg/dLHigh0.40-1.00Pro[facility]ca [facility] Comment on above:Result Comment: METHOD TRACEABLE TO IDMS STANDARDPerformed By: #### TIFF, , CBCA ####[facility] ([id number])[address] [place] [address] 04822#### HA1C ####[facility] ([id number])[address], [address] [place] [address] 27094NSY/1.73 sq M.predicted among non-blacks MDRD (S/P/Bld) [Vol rate/Area]60 mL/min/{1.73_m2}Normal>59 [facility] Medical CenterComment on above:Result Comment: Reported eGFR is based on the CKD-EPI 1 equation that does not use a race coefficient.Performed By: #### TIFF, , CBCA ####[facility] ([id number])[address] [place] [address] 16236#### HA1C ####[facility] ([id number])[address], [place] [address]Fgoomaf [Mass/Vol]484 mg/dLCritically fvrr05-45 [facility] Medical CenterComment on above:Performed By: #### TIFF, 32618-8, CBCA ####[facility] ([id number])[address] [place] [address] 46622#### HA1C ####[facility] ([id number])[address], [address], [place] [address]Iwgfwueol [Moles/Vol]4.1 mmol/LNormal3.5-5.0ProCarrollton Regional Medical CenterComment on above:Performed By: #### TIFF, , CBCA ####[facility] ([id number])[address] [place] [address] 72267#### HA1C ####[facility] ([id number])[address], [address], [place] [address]Zyaawwe [Mass/Vol]6.6 g/dL Normal6.0-8.0ProCarrollton Regional Medical CenterComment on above:Performed By: #### TIFF, , CBCA ####[facility] ([id number])[address] [place] [address] 49456#### HARiana ####[facility] ([id number])[address], [address], [place] [address]Vmhwwk [Moles/Vol]135 mmol/WCtqbwx232-960OpqXmfqcp [facility]ont HospitalComment on above:Performed By: #### TIFF, , CBCA ####[facility] ([id number])[address] [place] [address] 61968#### HA1C ####[facility] ([id number])[address], [address], [place] [address]Xgwd nitrogen [Mass/Vol]28 mg/dLHigh5-23ProCarrollton Regional Medical CenterComment on above:Performed By: #### TIFF, , CBCA ####[facility] ([id number])[address] [place] [address] 57389#### HA1C ####[facility] ([id number])[address], [place] [address]Cgzgksj Glucometer (BldC) [Mass/Vol]on 21-34-7462Tawyurz [Mass/Vol]311 mg/sPDyai11-97TrtIdrkiqTogus VA Medical CenterGlucose [Mass/Vol]339 mg/fRQdoa96-53JwpOluvriCarrollton Regional Medical CenterGlucose [Mass/Vol]363 mg/hDCpjn09-99BblSwrrfpCarrollton Regional Medical CenterGlucose [Mass/Vol]395 mg/kZIyys33-97GfdSxzeyiCarrollton Regional Medical CenterGlucose [Mass/Vol]488 mg/dLCritically rqom80-92BxzLracxcTogus VA Medical CenterHGB A1C (GLYCO-HGB)on 52-44-0293Agiymcp [Mass/Vol]229 mg/dLNormalTogus VA Medical CenterComment on above:Performed By: #### TIFF, 65484-7, CBCA ####[facility] ([id number])[address] [place] [address]#### HA1C ####[facility] ([id number])[address] [place] [address], [address] [address]FdH9n (Bld) [Mass fraction]9.6 %High4.4-5.6T[facility] VA Medical CenterComment on above:Result Comment: NOTE ADA Guidelines Result HgbA1c Normal : less than 5.7 % Prediabetes : 5.7 % to 6.4 % Diabetes : > 6.4 % Use with caution in patients with abnormal hemoglobin variants as the half-life of red blood cells and in vivo glycation rates are affected.Performed By: #### TIFF, 95350-7, CBCA ####[facility] ([id number])[address] [place], [place] [address]#### HA1C ####[facility] ([id number])[facility], [address] [address]ZBFOCEGFWif 80-07-9993Odnaurtwc [Mass/Vol]1.8 mg/dLNormal1.8-2.6[facility] Medical CenterComment on above:Performed By: #### CMP, 60199-3, CBCA ####[facility] ([id number])[address] [place] [address] 79125#### HA1C ####[facility] ([id number])[address], [address], [place] [address]QNCWB METABOLIC PANLon 41-02-7738Aagtx gap [Moles/Vol]10 mmol/LNormal5-15[facility] Comment on above:Performed By: #### SET UP AND LAY OUT INSPECTOR #### [facility] ([id number]) [address], [address] [place], [place] [address]Djmxaoa [Mass/Vol]9.2 mg/dLNormal8.5-10.5PWilson Memorial HospitalComment on above:Performed By: #### SET UP AND LAY OUT INSPECTOR #### [facility] ([id number]) [address], [address] [place], [place] [address]Zhvzfcmb [Moles/Vol]100 mmol/HNgpdwk31-378SddVvvwgsCarrollton Regional Medical CenterComment on above:Performed By: #### SET UP AND LAY OUT INSPECTOR #### [facility] ([id number]) [address], [address] [place], [place] [address]HF5 [Moles/Vol]29 mmol/KQsxcro64-73NgaGhhhysWilson Memorial Hospital Comment on above:Performed By: #### SET UP AND LAY OUT INSPECTOR #### [facility] ([id number]) [address], [address] [place], [place] [address]Tdpigkowmk [Mass/Vol]0.77 mg/dLNormal0.40-1.00ProCarrollton Regional Medical CenterComment on above:Result Comment: METHOD TRACEABLE TO IDMS STANDARD Performed By: #### SET UP AND LAY OUT INSPECTOR #### [facility] ([id number]) [address], [address] [place], [place] [address]xPRS (CKD-EPI) NON-RACE DEPENDENT>90Normal>59ProCarrollton Regional Medical CenterComment on above:Result Comment: Reported eGFR is based on the CKD-EPI 2020 equation that does not use a race coefficient.Performed By: #### SET UP AND LAY OUT INSPECTOR #### [facility] ([id number]) [address] [address] [place] [address]Toianes [Mass/Vol]254 mg/zFToui23-99CcgChneatTogus VA Medical Center Comment on above:Performed By: #### SET UP AND LAY OUT INSPECTOR #### [facility] ([id number]) [address] [address]Wurkumihc [Moles/Vol]4.2 mmol/LNormal3.5-5.0ProCarrollton Regional Medical CenterComment on above:Performed By: #### SET UP AND LAY OUT INSPECTOR #### [facility] ([id number]) [address] [address]Kljpju [Moles/Vol]139 mmol/QAsphws146-333TnjBayrdk [facility] HospitalComment on above:Performed By: #### SET UP AND LAY OUT INSPECTOR #### [facility] ([id number]) [address] [address]Lwtl nitrogen [Mass/Vol]23 mg/dLNormal5-23ProCarrollton Regional Medical CenterComment on above:Performed By: #### SET UP AND LAY OUT INSPECTOR #### [facility] ([id number]) [address] [address]NMM AND AUTO DIFFon 51-15-3772DEPNXBNX BASOPHIL0.0 X10E9/LNormal 0.0-0.2PWilson Memorial HospitalComment on above:Performed By: #### SET UP AND LAY OUT INSPECTOR #### [facility] ([id number]) [address] [address] [place], [place] [address]SOUEDUAT NEUTROPHIL2.7 X10E9/LNormal1.5-6.6T[facility] VA Medical CenterComment on above:Performed By: #### SET UP AND LAY OUT INSPECTOR #### [facility] ([id number]) [address], [address] [place], [place] [address]Vdxlfmiqo/100 WBC (Bld)0.7 %[facility] Comment on above:Performed By: #### SET UP AND LAY OUT INSPECTOR #### [facility] ([id number]) [address], [address] [place] [address]Nwzohsjbkgr (Bld) [#/Vol]0.1 10*3/uLNormal0.0-0.4T[facility] VA Medical CenterComment on above:Performed By: #### SET UP AND LAY OUT INSPECTOR #### [facility] ([id number]) [address] [address] [place], [place] [address]Lefvghqfjqc/100 WBC (Bld)1.4 %[facility] Comment on above:Performed By: #### SET UP AND LAY OUT INSPECTOR #### [facility] ([id number]) [address] [address] [place], [place] [address]Yqvfxehwfds distribution width (RBC) [Ratio]13.3 %Normal 11.5-15.0T[facility] VA Medical CenterComment on above:Performed By: #### SET UP AND LAY OUT INSPECTOR #### [facility] ([id number]) [address] [address] [place], [place] [address]Alckauwhxa (Bld) [Volume fraction]41.2 %Orbzdy38-47GodBdepmnTogus VA Medical CenterComment on above:Performed By: #### SET UP AND LAY OUT INSPECTOR #### [facility] ([id number]) [address], [address] [place], [place] [address]Zxpdowicpz (Bld) [Mass/Vol]13.6 g/iIMiszoc68.7-15.5PWilson Memorial HospitalComment on above:Performed By: #### SET UP AND LAY OUT INSPECTOR #### [facility] ([id number]) [address], [address] [place], [place] [address]Cscfzancvoo (Bld) [#/Vol]2.1 10*3/uLNormal1.0-3.5PWilson Memorial HospitalComment on above:Performed By: #### SET UP AND LAY OUT INSPECTOR #### [facility] ([id number]) [address], [address] [place] [address]Xqudrcpaefr/100 WBC (Bld)40.9 %NormalTogus VA Medical Center Comment on above:Performed By: #### SET UP AND LAY OUT INSPECTOR #### [facility] ([id number]) [address], [address] [place], [place] [address]WVX (RBC) [Entitic mass]28.5 adCdhpjq65-07RuaBzjdymTogus VA Medical CenterComment on above:Performed By: #### SET UP AND LAY OUT INSPECTOR #### [facility] ([id number]) [address], [address] [place], [place] [address]FNAE (RBC) [Mass/Vol]33.0 g/sWWwmulh65-58MieFdctluCarrollton Regional Medical CenterComment on above:Performed By: #### SET UP AND LAY OUT INSPECTOR #### [facility] ([id number]) [address], [address] [place], [place] [address]AQE (RBC) [Entitic vol]87 uZDhcrgw54-203KytQcuslbTogus VA Medical CenterComment on above:Performed By: #### SET UP AND LAY OUT INSPECTOR #### [facility] ([id number]) [address], [address] [place], [place] [address]Kkqvullqp (Bld) [#/Vol]0.2 10*3/uLNormal0-0.9T[facility] VA Medical CenterComment on above:Performed By: #### SET UP AND LAY OUT INSPECTOR #### [facility] ([id number]) [address], [address] [place], [place] [address]Xkepbeenk/100 WBC (Bld)4.6 %NormalTogus VA Medical Center Comment on above:Performed By: #### SET UP AND LAY OUT INSPECTOR #### [facility] ([id number]) [address], [address] [place], [place] [address]Lqgbmdtlonj/100 WBC (Bld)52.4 %NormalTogus VA Medical Center Comment on above:Performed By: #### SET UP AND LAY OUT INSPECTOR #### [facility] ([id number]) [address] [place], [place] [address]Lmsbryby mean volume (Bld) [Entitic vol]7.0 fLNormal7-12 [facility] Medical CenterComment on above:Performed By: #### SET UP AND LAY OUT INSPECTOR #### [facility] ([id number]) [address] [facility], [address] [place], [place] [address]Hckfzdmyi (Bld) [#/Vol]190 10*3/lDEigerv664-224AukNaezniTogus VA Medical CenterComment on above:Performed By: #### SET UP AND LAY OUT INSPECTOR #### [facility] ([id number]) [address] [facility], [address] [place], [place] [address]WMP COUNT4.77 X10E12/LNormal3.80-5.20[facility] Comment on above:Performed By: #### SET UP AND LAY OUT INSPECTOR #### [facility] ([id number]) [address] [facility] [place] [address]XYL (Bld) [#/Vol]5.2 10*3/uLNormal4.0-11.0T[facility] Medical CenterComment on above:Performed By: #### SET UP AND LAY OUT INSPECTOR #### [facility] ([id number]) [address], [address] [place], [place] [address]Jhscdn D-dimer DDU (PPP) [Mass/Vol]on 07-21-2024 SCQKS186 ng/mL DDUNormal<255T[facility] Medical CenterComment on above:Result Comment: Results <255 ng/mL DDU: The presence of a VTE can safely be excluded with a negative D-Dimer result and Wells score. A negative result doesn't exclude the possibility of DIC. The test be repeated along with other diagnostic tests if the patient's symptoms persist or worsen. [email or web address] By: #### SET UP AND LAY OUT INSPECTOR #### [facility] ([id number]) [address], [address] [place], [place] [address]DAQKDGNYLer 02-98-4912Tzjteltsb [Mass/Vol]2.0 mg/dLNormal1.8-2.6 [facility] CenterComment on above:Performed By: #### SET UP AND LAY OUT INSPECTOR #### [facility] ([id number]) [address], [address] [place], [place] [address]Mcunxrimqsa peptide B [Mass/Vol]on 03-02-3372Zqfxvvvqoml peptide B (Bld) [Mass/Vol]20 pg/mLNormal<100.0ProTrinity Health System West Campusca [facility] Medical CenterComment on above:Performed By: #### SET UP AND LAY OUT INSPECTOR #### [facility] ([id number]) [address], [address] [place], [place] [address]KIDG/FLU A+B/RSV by NAAT/Molecularon 99-93-4979RIDI/FLU A+B/RSV by NAAT/MolecularFLU A PCR Negative (qualifier value) FLU B [...] operators who are performing tests using either [employer] or [employer] systems and is limited to laboratories that [...] specimen repeat. Fact Sheet for Healthcare Providers: https://www.fda.gov/media/764341/download Fact Sheet for Patients: https://www.fda.gov/media/378315/downloadNormalProCarrollton Regional Medical CenterComment on above:Performed By: #### COVFLR ####[facility] ([id number])[address] [place] [address]CTTEYIX PROFILEon 17-31-9267Gumw T4 [Mass/Vol]1.11 ng/dLNormal0.61-1.60[facility] Comment on above:Performed By: #### SET UP AND LAY OUT INSPECTOR #### [facility] ([id number]) [address] [place] [address], [address] [place], [place] [address]ETB7.45 uIU/mLNormal0.49-4.67ProCarrollton Regional Medical CenterComment on above:Performed By: #### SET UP AND LAY OUT INSPECTOR #### [facility] ([id number]) [address] [place] [address], [address] [place], [place] [address]Poztymxl I.cardiac High sensitivity method [Mass/Vol]on HOUR TROP I, HIGH SENSITIVITY3 ng/LNormal<16[facility] CenterComment on above:Performed By: #### [id number] ####[facility] ([id number])[address], [place] [address] HOUR TROP I, HIGH SENSITIVITY3 ng/LNormal<16[facility] CenterComment on above:Performed By: #### 05793-2 ####[facility] ([id number])[address], [place] [address]YOEVPCGF I, HIGH SENSITIVITY3 ng/LNormal<16[facility] CenterComment on above:Performed By: #### SET UP AND LAY OUT INSPECTOR #### [facility] ([id number]) [address] [facility], [address] [place], [place] [address]CI CHEST 1 VWon 02-10-6875CY CHEST 1 VWXR CHEST 1 VW XR CHEST 1 VW IMPRESSION: Clinical Information: chest pain Comparison: 06/28/24. * No pulmonary edema or consolidation. * No effusions. * Stable heart size. * Mild elevation right hemidiaphragm. Finalized by Shama Calvin MD on 07/21/2024 5:08 PMNormalProCarrollton Regional Medical CenterMAGR Postoperative Recordon 30-31-2766ORYV Postoperative RecordMAGR Phase II Record Summary Primary Physician: Gary Miller DO Finalized Date/Time: 07/16/24 07:39:56 Pt. Name: CARISSA SANTOS/Sex: 1980 FEMALE Med Rec #: [id number] Physician: Gary Miller DO Financial #: [id number] Pt. Type: D Room/Bed: / Admit/Disch: 06/17/24 08:13:31 - 06/17/24 11:42:00 Institution: Phase II Case Times MAGR Pre-Care Text: Patient is free from s/s of injury. Patient remains free from compromised physical state related tosurgery or anesthesia. Patient comfort maintained. Patient/family verbalize [...] 1 minute in order for charges to drop.[facility] METABOLIC PANLon 35-06-4470Dlkty gap [Moles/Vol]10 mmol/LNormal5-15ProCarrollton Regional Medical CenterComment on above: Performed By: #### 79081-4, CBCA, BMP, 40138-4 #### [facility] ([id number]) [address] [place] [address] 99938Pnxplae [Mass/Vol]9.1 mg/dLNormal8.5-10.5PWilson Memorial HospitalComment on above:Performed By: #### 40436-4, CBCA, BMP, 94965-5 #### [facility] ([id number]) [address] [place] [address] 70093Unllddhr [Moles/Vol]103 mmol/FDqxfon31-582NmaFftqlwCarrollton Regional Medical CenterComment on above:Performed By: #### 01870-3, CBCA, BMP, 88546-7 #### [facility] ([id number]) [address] [place] [address] 17680TC8 [Moles/Vol]26 mmol/HOtfyem23-57LhyGzpsriWilson Memorial Hospital Comment on above:Performed By: #### 81765-4, CBCA, BMP, 39093-5 #### [facility] ([id number]) [address] [place] [address] 36806Ceaohigmaa [Mass/Vol]1.04 mg/dLHigh0.40-1.00ProCarrollton Regional Medical CenterComment on above:Result Comment: METHOD TRACEABLE TO IDMS STANDARD Performed By: #### 29179-1, CBCA, BMP, 69615-0 #### [facility] ([id number]) [address] [place] [address] 78815ZJD/1.73 sq M.predicted among non-blacks MDRD (S/P/Bld) [Vol rate/Area]68 mL/min/{1.73_m2}Normal>59ProCarrollton Regional Medical CenterComment on above:Result Comment: Reported eGFR is based on the CKD-EPI 2020 equation that does not use a race coefficient.Performed By: #### 54358-2, CBCA, BMP, 33890-5 #### [facility] ([id number]) [address] [place] [address] 59323Ghuhxbj [Mass/Vol]218 mg/uNLvox34-42LhxKzshtvTogus VA Medical Center Comment on above:Performed By: #### 16873-7, CBCA, BMP, 64850-8 #### [facility] ([id number]) [address] [place] [address] 95312Nnmeleegp [Moles/Vol]4.0 mmol/LNormal3.5-5.0ProCarrollton Regional Medical CenterComment on above:Performed By: #### 51032-8, CBCA, BMP, 03083-6 #### [facility] ([id number]) [address] [place] [address] 49772Aoepvz [Moles/Vol]139 mmol/YZkmino751-683HuiXcrtpi [facility]remont HospitalComment on above:Performed By: #### 52729-3, CBCA, BMP, 63068-2 #### [facility] ([id number]) [address] [place] [address] 63021Ecgo nitrogen [Mass/Vol]30 mg/dLHigh5-ProCarrollton Regional Medical CenterComment on above:Performed By: #### 86048-3, CBCA, BMP, 74151-4 #### [facility] ([id number]) [address] [place] [address] 89923GVT AND AUTO DIFFon 98-50-2837NJSMYHMT BASOPHIL0.0 X10E9/L Normal0.0-0.2ProMedGlendale Memorial Hospital and Health CenterComment on above:Performed By: #### 17255-9, CBCA, BMP, 92211-8 #### [facility] ([id number]) [address] [place] [address] 63630IWNRSHAX NEUTROPHIL3.7 X10E9/LNormal1.5-6.6ProCarrollton Regional Medical CenterComment on above:Performed By: #### 44848-9, CBCA, BMP, 09313-9 #### [facility] ([id number]) [address] [place] [address] 13581Tekksvmql/100 WBC (Bld)0.6 %NormalProCarrollton Regional Medical Center Comment on above:Performed By: #### 95256-2, CBCA, BMP, 32376-3 #### [facility] ([id number]) [address] [place] [address] 13137Ycyynintzwi (Bld) [#/Vol]0.1 10*3/uLNormal0.0-0.4Togus VA Medical CenterComment on above:Performed By: #### 24520-4, CBCA, BMP, 34691-9 #### [facility] ([id number]) [address] [place] [address] 93767Jhgaclqhazr/100 WBC (Bld)1.6 %NormalTogus VA Medical Center Comment on above:Performed By: #### 28408-1, CBCA, BMP, 29361-7 #### [facility] ([id number]) [address] [place] [address] 33699Tjqqojersst distribution width (RBC) [Ratio]14.0 %Normal 11.5-15.0Togus VA Medical CenterComment on above:Performed By: #### 98666-7, CBCA, BMP, 27896-5 #### [facility] ([id number]) [address] [place] [address] 89161Ykavdcbzky (Bld) [Volume fraction]37.6 %Ezzekl92-48CrdGyjiiyCarrollton Regional Medical CenterComment on above:Performed By: #### 54540-6, CBCA, BMP, 66298-3 #### [facility] ([id number]) [address] [place] [address] 34193Hqujeybtpk (Bld) [Mass/Vol]12.4 g/tRLeznbv64.7-15.5PWilson Memorial HospitalComment on above:Performed By: #### 69971-0, CBCA, BMP, 74127-2 #### [facility] ([id number]) [address] [place] [address] 03828Kcpcmayomil (Bld) [#/Vol]2.6 10*3/uLNormal1.0-3.5PWilson Memorial HospitalComment on above:Performed By: #### 20432-0, CBCA, BMP, 12776-6 #### [facility] ([id number]) [address] [place] [address] 23818Oendorlwpho/100 WBC (Bld)37.6 %NormalTogus VA Medical Center Comment on above:Performed By: #### 74254-9, CBCA, BMP, 72420-4 #### [facility] ([id number]) [address] [place] [address] 21951QLP (RBC) [Entitic mass]28.6 bqDmpdib81-07NocSaufnzTogus VA Medical CenterComment on above:Performed By: #### 54240-0, CBCA, BMP, 37638-0 #### [facility] ([id number]) [address] [place] [address] 90120OIEZ (RBC) [Mass/Vol]32.9 g/zOAldxze62-49DmvRdbrfqCarrollton Regional Medical CenterComment on above:Performed By: #### 65000-0, CBCA, BMP, 83754-4 #### [facility] ([id number]) [address] [place] [address] 64661FWE (RBC) [Entitic vol]87 xNXxkwyx04-185FzlCpoweh [facility] HospitalComment on above:Performed By: #### 40660-1, CBCA, BMP, 89408-4 #### [facility] ([id number]) [address] [place] [address] 34067Mruzaqyyk (Bld) [#/Vol]0.4 10*3/uLNormal0-0.9Togus VA Medical CenterComment on above:Performed By: #### 87074-3, CBCA, BMP, 67879-3 #### [facility] ([id number]) [address] [place] [address] 97847Xbbekzvxk/100 WBC (Bld)5.6 %[facility] Comment on above:Performed By: #### 04171-0, CBCA, BMP, 58714-4 #### [facility] ([id number]) [address] [place] [address] 97586Tlhpcvwdqoh/100 WBC (Bld)54.6 %[facility] Comment on above:Performed By: #### 90564-1, CBCA, BMP, 45880-1 #### [facility] ([id number]) [address] [place] [address] 32862Jsjqlwgx mean volume (Bld) [Entitic vol]6.9 fLLow7-12PWilson Memorial HospitalComment on above:Performed By: #### 79057-7, CBCA, BMP, 33816-7 #### [facility] ([id number]) [address] [place] [address] 04391Yusjgonld (Bld) [#/Vol]224 10*3/dHPmapem534-511OlcPpazhk [facility] HospitalComment on above:Performed By: #### 97126-4, CBCA, BMP, 92118-3 #### [facility] ([id number]) [address] [place] [address] 60768RAN COUNT4.32 X10E12/LNormal3.80-5.20[facility] Comment on above:Performed By: #### 09911-4, CBCA, BMP, 48218-1 #### [facility] ([id number]) [address] [place] [address] 59128WLQ (Bld) [#/Vol]6.8 10*3/uLNormal4.0-11.0Togus VA Medical CenterComment on above:Performed By: #### 32914-8, CBCA, BMP, 59260-5 #### [facility] ([id number]) [address] [place] [address] 16737Oaysug D-dimer DDU (PPP) [Mass/Vol]on 06-28-2024 RNOKO187 ng/mL DDUNormal<255Togus VA Medical CenterComment on above:Result Comment: Results <255 ng/mL DDU: The presence of a VTE can safely be excluded with a negative D-Dimer result and Wells score. A negative result doesn't exclude the possibility of DIC. The test be repeated along with other diagnostic tests if the patient's symptoms persist or worsen. [email or web address]&uh=acaeaPerformed By: #### 17843-0, CBCA, BMP, 19382-0 #### [facility] ([id number]) [address] [place] [address], [address], [place] [address]Suizmuzo I.cardiac High sensitivity method [Mass/Vol]on HOUR TROP I, HIGH YPZULSUVDWD13 ng/LHigh<16ProCarrollton Regional Medical CenterComment on above:Result Comment: Elevations of hs-Troponin may be due to causes other than myocardial ischemia. Recommend serial hs-Troponin testing be performed. For the initial evaluation and management of chest pain patients, refer to the algorithms linked below. Emergency Patient: [email or web address]=acaea Inpatient: [email or web address]&uh=acaeaPerformed By: #### SET UP AND LAY OUT INSPECTOR #### [facility] ([id number]) [address] [place] [address], [address] [place], [place] [address] HOUR TROP I, HIGH LUAIUIFIJHX07 ng/LHigh<16ProCarrollton Regional Medical CenterComment on above:Result Comment: Elevations of hs-Troponin may be due to causes other than myocardial ischemia. Recommend serial hs-Troponin testing be performed. For the initial evaluation and management of chest pain patients, refer to the algorithms linked below. Emergency Patient: [email or web address]=acaea Inpatient: [email or web address]&uh=acaeaPerformed By: #### SET UP AND LAY OUT INSPECTOR #### [facility] ([id number]) [address], [address] [place], [place] [address]CCXJRCBN I, HIGH DTPMJZILLLQ61 ng/LHigh<16ProCarrollton Regional Medical CenterComment on above:Result Comment: Elevations of hs-Troponin may be due to causes other than myocardial ischemia. Recommend serial hs-Troponin testing be performed. For the initial evaluation and management of chest pain patients, refer to the algorithms linked below. Emergency Patient: [email or web address]=acaea Inpatient: [email or web address]&[email or web address]&uh=acaeaPerformed By: #### 44750-2, CBCA, BMP, 07672-4 #### [facility] ([id number]) [address] [place] [address], [address] [place], [place] [address]WB CHEST 1 VWon 09-44-6531YE CHEST 1 VWXR CHEST 1 VW XR CHEST 1 VW [...] by Stephan Richardson MD on 06/28/2024 8:13 PMNormalProCarrollton Regional Medical CenterCOMPLETE BLOOD COUNTon 86-26-4943Zeemnibldzm distribution width (RBC) [Ratio]14.2 %Elrufq06.5-15.0[facility]Point Medical CenterComment on above:Performed By: #### CBC #### [facility] ([id number]) [address], [address] [place], [place] [address]Awxvkpjiwc (Bld) [Volume fraction]38.8 %Jhhbzw23-78PpbEbondu [facility] HospitalComment on above:Performed By: #### CBC #### [facility] ([id number]) [address], [address] [place], [place] [address]Rpvetcxipx (Bld) [Mass/Vol]12.9 g/sFLcflbn70.7-15.5ProMedica [facility]ridge HospitalComment on above:Performed By: #### CBC #### [facility] ([id number]) [address], [address] [place], [place] [address]WYM (RBC) [Entitic mass]29.0 dpVglmgt53-16NykBiwkmv [facility] HospitalComment on above:Performed By: #### CBC #### [facility] ([id number]) [address], [address] [place], [place] [address]OOSJ (RBC) [Mass/Vol]33.2 g/tGLzflfn47-38RbuAwvukn [facility] HospitalComment on above:Performed By: #### CBC #### [facility] ([id number]) [address], [address] [place], [place] [address]SFD (RBC) [Entitic vol]87 iTOdnves02-836PvfHxvzwu [facility] HospitalComment on above:Performed By: #### CBC #### [facility] ([id number]) [address], [address] [place], [place] [address]Ullxxplt mean volume (Bld) [Entitic vol]6.9 fLLow7-12ProMedica [facility] HospitalComment on above:Performed By: #### CBC #### [facility] ([id number]) [address], [address] [place], [place] [address]Qkzhajtzs (Bld) [#/Vol]210 10*3/qBRrasqu157-597SlmMumkrl [facility] HospitalComment on above:Performed By: #### CBC #### [facility] ([id number]) [address], [address] [place], [place] [address]YQU COUNT4.46 X10E12/LNormal3.80-5.20[facility] Comment on above:Performed By: #### CBC #### [facility] ([id number]) [address], [address] [place], [place] [address]ACW (Bld) [#/Vol]6.5 10*3/uLNormal4.0-11.0ProMartins Ferry HospitalComment on above:Performed By: #### CBC #### [facility] ([id number]) [address], [address] [place], [place] [address]VBU XLJB2vp 88-93-1621Lgvednzc [Moles/Vol]99 mmol/GOtttwk11-710 [facility] Medical CenterComment on above:Performed By: #### IELGBC #### [facility] ([id number]) [address] [place], [place] [address]TO8 [Moles/Vol]30 mmol/JVxhpgi25-79JctVstccgRegency Hospital [place] Comment on above:Performed By: #### IELGBC #### [facility] ([id number]) [address] [place], [place] [address]Yzhjrpigtn [Mass/Vol]0.9 mg/dLNormal0.4-1.0[facility] Medical CenterComment on above:Result Comment: METHOD TRACEABLE TO IDMS STANDARD Performed By: #### IELGBC #### [facility] ([id number]) [address] [place], [place] [address]YCW/1.73 sq M.predicted among non-blacks MDRD (S/P/Bld) [Vol rate/Area]81 mL/min/{1.73_m2}Normal>59ProMartins Ferry HospitalComment on above: Result Comment: Reported eGFR is based on the CKD-EPI 2020 equation that does not use a race coefficient.Performed By: #### IELGBC #### [facility] ([id number]) [address] [place], [place] [address]Rpcadmj [Mass/Vol]128 mg/dZCoxs36-08FyuWkgsft [facility] Comment on above:Performed By: #### IELGBC #### [facility] ([id number]) [address] [place], [place] [address]Psyjsqwsq [Moles/Vol]4.3 mmol/LNormal3.5-5.0ProTrinity Health System West Campusca Sulphur Bluff HospitalComment on above:Performed By: #### IELGBC #### [facility] ([id number]) [address] [place], [place] [address]Qpbcql [Moles/Vol]140 mmol/GMepqgl287-290VefJlovhe [facility] HospitalComment on above:Performed By: #### IELGBC #### [facility] ([id number]) [address] [place], [place] [address]Kqot nitrogen [Mass/Vol]28 mg/dLHigh6-23ProUniversity Hospitals [facility] Center HospitalComment on above:Performed By: #### IELGBC #### [facility] ([id number]) [address] [place], [place] [address]Roqqkf Summaryon 73-80-4490Fvvzhg SummaryHTMLBase 64 ChtxfhnuBMi0cBn+PGhlYWQ+LB3YLSNkZ34cqEEmqH9zO5PCZGxYQnsuXMGHYZwMKaDqntFmBW4znKFz ZXJu [file] ci1 (more content not included)...[facility] Intraoperative Recordon 05-56-0408YDFD Intraoperative RecordMAGR Intra-Op Record Summary Primary Physician: Gary Miller DO Finalized Date/Time: 06/20/24 08:21:54 Pt. Name: CARISSA SANTOS D.O.B./Sex: 1980 FEMALE Med Rec #: [id number] Physician: Gary Miller DO Financial #: [id number] Pt. Type: D Room/Bed: / Admit/Disch: 06/17/24 [...] Role Performed Surgeon - Primary Anesthesiologist of [employer] Record Time In 06/17/24 10:22:00 06/17/24 10:16:00 06/17/24 10:16:00 Time Out 06/17/24 10:37:00 06/17/24 10:43:00 06/17/24 10:43:00 Procedure Carpal Tunnel Carpal Tunnel Carpal Tunnel Release(Right) Release(Right) Release(Right) Last Modified By: Jessica Ordonez RN, Diane RN Kokinda, Diane RN 06/17/24 10:47:37 06/17/24 10:47:37 06/17/24 10:47:37 Entry 4 Entry 5 Case Attendee Heaven Lainez Regina CSFA INTEGRATION ARCHITECT INTEGRATION ARCHITECT Role Performed Scrub Personnel Founder Time In 06/17/24 10:16:00 06/17/24 10:16:00 Time Out 06/17/24 10:43:00 06/17/24 10:43:00 Procedure Carpal Tunnel Carpal Tunnel Release(Right) Release(Right) Last Modified By: Jessica Ordonez RN, Diane RN 06/17/24 10:47:37 06/17/24 10:47:37 Surgical Procedures MAGR Pre-Care Text: A.20 Verifies operative procedure, surgical site, and laterality Im.150 Develops individualized plan of care Entry 1 Procedure Carpal Tunnel Release Primary Procedure Yes Primary Surgeon Gary Miller Right Terrance DO Surgeon Comment RIGHT [...] Out Time 06/17/24 10:28:00 Participants Gerri Newberry INTEGRATION ARCHITECT, Jessica Ordonez RN Last Modified By: Jessica [...] A.30 Verifies allergies Im.2 (more content not included)...[facility] Medical CenterConsent Formson 95-98-1101Bnvzqlv Forms [id number]#1.00[facility] Discharge Instructionson 68-29-3322Rvnjaepol Instructions [id number]#1.00[facility] Outside Recordson 13-05-1236Snfdzjg Records [id number]#1.00[facility] Anesthesia Noteon 49-78-0603Bpbjekiobb NotePatient: CARISSA SANTOS Age: 43 years Sex: FEMALE : 1980 Associated Diagnoses: None Author: Olivier Lares MD Postoperative Information Post Operative Note: Operative Day. Anesthetic utilized: Monitored anesthesia care. Health Status Allergies: Allergic Reactions (All) Moderate Bactrim- Rash. Canceled/Inactive Reactions (All) No known allergies Problem list: All Problems Anxiety / SNOMED CT 51214200 / Confirmed Chronic hypoxic respiratory failure / SNOMED CT 4876194345 / Confirmed Depression / SNOMED CT 58279105 / Confirmed Developmental delay / SNOMED CT 149156359 / Confirmed Diabetes / SNOMED CT 454356301 / Confirmed GERD (gastroesophageal reflux disease) / SNOMED CT 462519693 / Confirmed High blood cholesterol / SNOMED CT 94476545 / Confirmed HTN (hypertension) / SNOMED CT 5526099696 / Confirmed Irritable bowel syndrome (IBS) / SNOMED CT 21452620 / Confirmed Pulmonary nodule / SNOMED CT 6968182501 / Confirmed Obesity / SNOMED CT 2408877222 / Confirmed Physical Examination Vital Signs (last [...] Signed on: 06/17/2024 10:48 EDT] Olivier Lares MD [Verified on: 06/17/2024 10:48 EDT] Olivier Lares MDCincinnati Children's Hospital Medical CenterAnesthesi NotePatient: CARISSA SANTOS Age: 43 years Sex: FEMALE [...] list: All Problems Anxiety / SNOMED CT 15265822 / Confirmed Chronic hypoxic respiratory failure / SNOMED CT 8368890722 / Confirmed Depression / SNOMED CT 01673336 / Confirmed Developmental delay / SNOMED CT 342919010 / Confirmed Diabetes / SNOMED CT 277757766 / Confirmed GERD (gastroesophageal reflux disease) / SNOMED CT 125979542 / Confirmed High blood cholesterol / SNOMED CT 05982812 / Confirmed HTN (hypertension) / SNOMED CT 8517844396 / Confirmed Irritable bowel syndrome (IBS) / SNOMED CT 41930063 / Confirmed Pulmonary nodule / SNOMED CT 3240867749 / Confirmed Obesity / SNOMED CT 7851800834 / Confirmed Histories Family History: Heart attack Mother COPD (chronic obstructive pulmonary disease) Mother Procedure history: Carpal tunnel (729611400) on 09/25/2023 at 43 Years. Comments: 09/25/2023 8:27 Jennyfer Benoit RN left TL - Tubal ligation (026889631) on 03/31/2023 at 42 Years. Genital warts (974512337). Cholecystectomy (24599879). Decompression of ulnar nerve (412300347). Comments: 04/16/2024 10:03 MARZENA Shrestha RN, Kevin [...] Oriented. Review / Management Laboratory Results Plan [place] [employer] Anesthesiologists (ASA) physical status classification: Class III. Anesthetic Preoperative Plan Anesthesia: Monitored anesthesia care. Anesthetic plan, risks, benefits, and alternatives discussedwith the patient and/or family. Patient verbalized understanding. Informed consent was given. Consent was signed by the patient. [Electronically Signed on: 06/17/2024 10:14 EDT] Olivier Lares MD [Verified on: 10 (more content not included)...[facility] Medical CenterInpatient Patient Summaryon 09-31-1934Pgbpwfshu [place] [address] Patient Discharge Instructions Name: CARISSA SANTOS : 1980 Patient Address: [address] [place] [address] Primary Care Provider: Name: DIAZ DALTON After you are discharged if you find you have any questions, please, call [phone] ext [phone] to speak to a nurse. Discharge Diagnosis: Carpal tunnel syndrome, right Prescription Information: If you have been given a prescription for narcotics, seek immediate medical attention if you have any difficulty breathing or any sudden status changes such as confusion andsleepiness. If you or anyone you know is experiencing suicidal thoughts, mental health, alcohol and/or drug addiction problems; contact the [facility] 27/03 Crisis Hotline -Text 4HKZJ ql [phone]. If you received any narcotics, sedation, or [...] business decisions or sign any legal documents [facility] would like to thank you for allowing us to assist you with your healthcare needs.The following includes patient education materials and information regarding your injury/illness. CARISSA SANTOS has been given the following list of follow-up instructions, prescriptions, andpatient education materials: Follow-up Instructions With: Address: When: Barry Snowden [facility] [place] [address] [facility] (1) 06/24/2024 10:15 AM Medications During the [...] every day. Durable Medical Equipment for Prescription ([employer] CRYSTAL SENSOR 14D) APPLY 1 SENSOR TO BACK OF UPPER ARM. REMOVE AND REPLACE EVERY 14 DAYS. fluticasone/umeclidinium/vilanterol (Trelegy Ellipta 200 mcg-62.5 mcg-25 mcg/inh inhalation powder)1 puff(s) Inhale (breathe in) every day. insulin [...] release) 1 tab(s) Oral (given by mouth) everyday. lisinopril (lisinopril 2.5 mg oral tablet) 1 tab(s) Oral (given by mouth) every day. LORazepam (LORazepam 1 mg oral tablet) 1 tab(s) Oral (given by mouth) 3 times per day as needed foranxiety. nabumetone (nabumetone 500 mg oral tablet) 2 [...] (atorvastatin 40 mg oral (more content not included)...[facility] [place] Preoperative Recordon 73-29-3418PDHX Preoperative Record [facility] Pre-Op Record Summary Primary Physician: Gary Miller DO Finalized Date/Time: 06/17/24 13:04:23 Pt. Name: CARISSA SANTOS/Sex: 1980 FEMALE Med Rec #: [id number] Physician: Gary Miller DO Financial #: [id number] Pt. Type: D Room/Bed: / Admit/Disch: 06/17/24 08:13:31 - Institution: Pre-Op Case Times MAGCoy Pre-Care Text: Patient will be optimally prepared [...] ready for surgery. The patient remains free froms/s of injury. Patient/family express understanding of plan of care and participate in decisions affectinghis or her perioperrative plan of care. Allergies documented appropriately. Patient identifiers and consent correct. General Comments: Reviewed for the next 24 hours not to do anything that requires concentration. Denies chest pain, shortness of breath or illnessess. Deneis pacemaker. States sleep apnea, does not use machine. Finalized By: Jennyfer Gresham RN Document Signatures Signed By: Jennyfer Gresham RN 06/17/24 13:04[facility] Glucose Levelon [id number] [Mass/Vol]43 mg/dLCritically [id number] [place] [address] Comment on above:Result Comment: OPR_ID=IN_LIST,TGC FLAG = False,Meter:[id number] Vegetable Sorter:Jojo DangeloPerformed By: #### [id number] ####[place] [facility] (DEFAULT)[address] [place], [place] [address]Patient Handouton 06-17-2024 Patient HandoutDRBrian MILLER'S POST OPERATIVE CARPAL TUNNEL INSTRUCTIONS: SURGEON'S WRITTEN INSTRUCTIONS: 1. Keep your hand elevated above your elbow for the first 24 hours after surgery. 2. Wiggle your fingers frequently while awake. 3. DO NOT lift heavy objects or test deskman forcefully with your hand. 4. Change your dressing in 1 day and apply an marco a bandage as directed with the thumb tucked towardsthe palm of your hand. This keeps the tension off your incision. 5. You may shower in 1 day but do not submerge your hand under water. Put a 4x4 gauze and the marco a bandage back on after you shower. 6. If you have any problems or concerns, please call the office at [phone]. 7. Follow up as scheduled.[facility] Note - Nurseon 41-19-3086Vafyqgzh Note - NursePre-op call made- pt given arrival time of 0800 on 06-17-2024. 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 [Electronically Signed on: 06/14/2024 10:52 EDT] Margaret Cuellar RN [Verified on: 06/14/2024 10:52 EDT] Margaret Cuellar RN, [facility] concerned whether pt has hold her Mounjaro medication for a week- pt recalled and pt stated that last dose of her Mounjaro was on 06-03-2024. [Electronically Signed on: 06/14/2024 11:05 EDT] Margaret CuellarCleveland Clinic Mercy Hospitaless Note - Nursesimran 21-27-6011Vfngnttl Ursula - Javid Flores reviews pt clearance and states that a new PAT is not necessary. [Electronically Signed on: 05/31/2024 11:43 EDT] Kalyani Ortiz RN [Verified on: 05/31/2024 11:43 EDT] Kalyani Ortiz RNNoPremier HealthHGB A1C (GLYCO-HGB)on 05-28-2024 Glucose [Mass/Vol]324 mg/dLNoBarney Children's Medical CenterComment on above: Performed By: #### HA1C #### [facility] ([id number]) [address], [address] [place], [place] [address]OvH5c (Bld) [Mass fraction]12.9 %High4.4-5.6T[facility] VA Medical CenterComment on above:Result Comment: NOTE ADA Guidelines Result HgbA1c Normal : less than 5.7 % Prediabetes : 5.7 % to 6.4 % Diabetes : > 6.4 % Use with caution in patients with abnormal hemoglobin variants as the half-life of red blood cells and in vivo glycation rates are affected.Performed By: #### HA1C #### [facility] ([id number]) [address], [address] [place], [place] [address]AY KNEE RT 3 VWSon 86-88-1162NS KNEE RT 3 VWSXR KNEE RT 3 VWS CLINICAL INFORMATION: pain, fall TECHNIQUE: XR KNEE RT 3 VWS 3 views right knee were obtained. There is no acute osseous abnormality. No fractures seen. No malalignment. IMPRESSION: No acute findings. Finalized by Dustin Hernandez MD on 05/16/2024 10:29 AMNormalTogus VA Medical CenterCoding Summaryon 50-40-6062Tibvek SummaryHTMLBase 64 TsdejsrzNTe5hYb+PGhlYWQ+SW1SZUFnA30hhEJwkG8pK2CSCAmZKtueGMLQQNqVLbSfyrLsXG8tvNKf ZXJu [file] ZTo (more content not included)...[facility] Medical CenterCT CHEST W CONTon 03-18-0097NB CHEST W CONTCT CHEST W CONT CT of the chest with contrast dated 04/23/2024 at 8:28 AM INDICATION: Abnormal x-ray, adenopathy, mediastinal lymphadenopathy, lung nodule. . PROCEDURE: Automatic radiation exposure lowering techniques were utilized. All CT scans at this facility use dose modulation, iterative reconstruction, and/or weight based dosing when appropriate to reduce radiation dose to as low as reasonably achievable.. Following the intravenous injection of 70mL of Omnipaque 300, a CT of the [...] 2. Stable 1.2 cm paratracheal lymph node. Finalized by Jose Connors MD on 04/24/2024 8:48 PMNormalProCarrollton Regional Medical CenterCREATININEon 43-90-1883Aozxwixgca [Mass/Vol]0.78 mg/dLNormal0.40-1.00 [facility] Medical CenterComment on above:Result Comment: METHOD TRACEABLE TO [facility] STANDARDPerformed By: #### SET UP AND LAY OUT INSPECTOR #### [facility] ([id number]) [address] [place], [place] [address]oZPL (CKD-EPI) NON-RACE DEPENDENT>90Normal>59Togus VA Medical CenterComment on above:Result Comment: Reported eGFR is based on the CKD-EPI 2020 equation that does not use a race coefficient.Performed By: #### SET UP AND LAY OUT INSPECTOR #### [facility] ([id number]) [address], [address] [place], [place] [address]Bexxfeth Note - Nurseon 26-78-8825Kjiqmssc Note - NurseWriter spoke with Adriane at Dr. Jones office and informed her that per Dr. Barrett pt will need an echo to evaluate for pulmonary HTN before her surgery. Adriane verbalizes understanding. [Electronically Signed on: 04/18/2024 15:41 EDT] Jennyfer Gresham RN [Verified on: 04/18/2024 15:41 EDT] Jennyfer Gresham RNCincinnati Children's Hospital Medical CenterProgress Note - NurseDr Barrett reviewed PAT information. Per Dr. Barrett pt needs echo as recommended by pulmonology to eval uate for Pulmonary HTN. Waiting to hear back from Dr. Jones office to inform them of need forecho. [Electronically Signed on: 04/18/2024 15:20 EDT] Jennyfer Gresham RN [Verified on: 04/18/2024 15:20 EDT] Jennyfer Gresham RNCincinnati Children's Hospital Medical Center.Auto Diff 1on 72-41-6005Aftq Potter %6 % Normal1-12[facility] HospitalComment on above:Performed By: #### [id number], [id number], [id number] ####[facility] (DEFAULT)[address] [place] [address]Bqme Abs#0.0 z84Nwdmlm4.0-0.2Magruder HospitalComment on above: Performed By: #### [id number], [id number], [id number] ####[facility] (DEFAULT)[address] [place] [address] 04859Xjavmmbxl/100 WBC (Bld)0.5 % Normal0.2-2.0Magruder HospitalComment on above:Performed By: #### [id number], [id number], [id number] ####[facility] (DEFAULT)[address] [place] [address] 89755Gvx Abs#0.1 b78Xehrsz4.0-0.4Mag[facility]uder HospitalComment on above: Performed By: #### [id number], [id number], [id number] ####[facility] (DEFAULT)[address] [place] [address] 34830Fofyexbfelv/100 WBC (Bld)1.4 % Normal0.9-4.0[facility]uder HospitalComment on above:Performed By: #### [id number], [id number], [id number] ####[facility] (DEFAULT)[address] [place] [address] 75593Xqbyy Abs#1.9 s51Sothga4.3-2.9[facility] HospitalComment on above:Performed By: #### [id number], [id number], [id number] ####[facility] (DEFAULT)[address] [place] [address] 27134Owjrdifpkzj/100 WBC (Bld)37 % Jexohk51-65Ijaogvwe HospitalComment on above:Performed By: #### [id number], [id number], [id number] ####[facility] (DEFAULT)[address] [place] [address] 24250Hgnl Abs#0.3 c83Ntzgnd1.0-0.8Mag[facility]uder HospitalComment on above: Performed By: #### [id number], [id number], [id number] ####[facility] (DEFAULT)[address] [place] [address] 39200Hgpu Abs#2.8 a44Nrpfrr0.5-9.[address] [facility] HospitalComment on above:Performed By: #### [id number], [id number], [id number] ####[facility] (DEFAULT)[address] [place] [address] 13288 Neutrophils/100 WBC (Bld)55 %Rtadru96-11Lezlxhfy HospitalComment on above: Performed By: #### [id number], [id number], [id number] ####[facility] (DEFAULT)[address] [place] [address] 96625AAB Standardon 79-67-5548xQRB Non AA>60Invalid Interpretation CodeMercy Health St. [facility]'S Medical Center HospitalComment on above:Performed By: #### [id number], [id number], [id number] ####[facility] (DEFAULT)[address] [place] [address] 24511dXEO AA>60Invalid Interpretation CodeMercy Health St. [facility]'S Medical Center HospitalComment on above:Performed By: #### [id number], [id number], [id number] ####[facility] (DEFAULT)[address] [place] [address] 49772Yawvk gap [Moles/Vol]11.4 mmol/LNormal5.0-19.0[facility] HospitalComment on above:Performed By: #### [id number], [id number], [id number] ####[facility] (DEFAULT)[address] [place] [address] 00171Cmviumw [Mass/Vol]8.7 mg/dLLow8.9-10.3Mriverview health institute HospitalComment on above:Performed By: #### [id number], [id number], [id number] ####[facility] (DEFAULT)[address] [place] [address] 05493Mrjrbdkj [Moles/Vol]100 mmol/IEei509-686Zaccuiwq HospitalComment on above:Performed By: #### [id number], [id number], [id number] ####[facility] (DEFAULT)[address] [place] [address] 28715HP2 [Moles/Vol]27 mmol/JSyoxgv01-50Kgwfqovo Hospital Comment on above:Performed By: #### [id number], [id number], [id number] ####[facility] (DEFAULT)[address] [place] [address] 73383Rvkuxiueld [Mass/Vol] 0.73 mg/dLNormal0.60-1.30[facility] HospitalComment on above:Performed By: #### [id number], [id number], [id number] ####[facility] (DEFAULT)[address] [place] [address] 99592Gnvkjjc [Mass/Vol]249.0 mg/eHAsdt56.0-118.0[facility] HospitalComment on above:Performed By: #### [id number], [id number], [id number] ####[facility] (DEFAULT)[address] [place] [address] 00826Cexcgixuok 279 mOsm/LInvalid Interpretation CodeMercy Health St. [facility] HospitalComment on above:Performed By: #### [id number], [id number], [id number] ####[facility] (DEFAULT)[address] [place] [address] 30265Raeorgkwt [Moles/Vol]4.4 mmol/LNormal3.6-5.1 [facility] HospitalComment on above:Performed By: #### [id number], [id number], [id number] ####[facility] (DEFAULT)[address] [place] [address] 71353 Sodium [Moles/Vol]134.0 mmol/ZMnl462.0-144.0[facility] HospitalComment on above: Performed By: #### [id number], [id number], [id number] ####[facility] (DEFAULT)[address] [place] [address] 24383Ktbp nitrogen [Mass/Vol]20 mg/dL Normal8-26[facility] HospitalComment on above:Performed By: #### [id number], [id number], [id number] ####[facility] (DEFAULT)[address] [place] [address] 21681Hvnp nitrogen/Creatinine [Mass ratio]27.3 mg/mgHigh4.6-16.[address] [facility] HospitalComment on above:Performed By: #### [id number], [id number], [id number] ####[facility] (DEFAULT)[address] [place] [address] 14241 CBC w/ Auto Diffon 14-03-6400Ruivbjtzldt distribution width (RBC) [Ratio]13.9 % Onbiqz74.5-15.0[facility] HospitalComment on above:Performed By: #### [id number], [id number], [id number] ####[facility] (DEFAULT)[address] [place] [address] 83448Ybfbqjjcaf (Bld) [Volume fraction]43.1 %High33.7-40.4[facility] HospitalComment on above:Performed By: #### [id number], [id number], [id number] ####[facility] (DEFAULT)[address] [place] [address] 01772Thvnxedkkd (Bld) [Mass/Vol]14.0 g/lJVsfpqj15.3-15.9[facility] HospitalComment on above: Performed By: #### [id number], [id number], [id number] ####[facility] (DEFAULT)[address] [place] [address] 83397Vyr Diff?AutoInvalid Interpretation CodeMercy Health St. [facility]'S Medical Center HospitalComment on above:Performed By: #### [id number], [id number], [id number] ####[facility] (DEFAULT)[address] [place] [address] 48628LZH (RBC) [Entitic mass]28 mwVgkzzs13-20Yzrzteqk HospitalComment on above:Performed By: #### [id number], [id number], [id number] ####[facility] (DEFAULT)[address] [place] [address] 51466USTN (RBC) [Mass/Vol]33 g/eJUfhssl03-53Gzjwjfnx HospitalComment on above:Performed By: #### [id number], [id number], [id number] ####[facility] (DEFAULT)[address] [place] [address] 22571UVJ (RBC) [Entitic vol]86 hNXzsqxg64-725Qtfufocf HospitalComment on above:Performed By: #### [id number], [id number], [id number] ####[facility] (DEFAULT)[address] [place] [address] 65112Cwskhnuz 204 z57Pspatn103-920Tbhuouhz HospitalComment on above:Performed By: #### [id number], [id number], [id number] ####[facility] (DEFAULT)[address] [place] [address] 55962Bownaygl mean volume (Bld) [Entitic vol]7.4 fLNormal 6.3-10.2Mriverview health institute HospitalComment on above:Performed By: #### [id number], [id number], [id number] ####[facility] (DEFAULT)[address] [place] [address] 38554NYD3.99 h40Qausme7.70-5.30Mamercy health [facility] HospitalComment on above: Performed By: #### [id number], [id number], [id number] ####[facility] (DEFAULT)[address] [place] [address] 60363OZL7.1 r51Xyplqd0.5-10.5[facility] HospitalComment on above:Performed By: #### [id number], [id number], [id number] ####[facility] (DEFAULT)[address] [place] [address] 60372PEP A1C (GLYCO-HGB)on 75-08-5193Qcvmmyw [Mass/Vol]229 mg/dLNormalProCleveland Clinic Mercy Hospital HospitalComment on above:Performed By: #### HA1C #### [facility] ([id number]) [address], [address] [place], [place] [address]HsO2j (Bld) [Mass fraction]9.6 %High4.4-5.6ProCleveland Clinic Mercy Hospital HospitalComment on above:Result Comment: NOTE ADA Guidelines Result HgbA1c Normal : less than 5.7 % Prediabetes : 5.7 % to 6.4 % Diabetes : > 6.4 % Use with caution in patients with abnormal hemoglobin variants as the half-life of red blood cells and in vivo glycation rates are affected.Performed By: #### HA1C #### [facility] ([id number]) [address] [place] [address], [address] [place], [place] [address]Ggcgusqb identified Cx Nom (U)on 22-48-4753Pcyjixzxbgbywx and review of laboratory resultsAbnoSelect Specialty Hospital [facility] Laurel Highlands SystemService comment (Unsp spec) [Interp]>100,000 ORGANISMS/mL ESCHERICHIA COLIAbnoSelect Specialty Hospital - Laurel High[facility] SystemService comment (Unsp spec) [Interp]<10,000 ORGANISMS/mL NORMAL URO GENITAL FLORAChillicothe VA Medical Center SystemChillicothe [facility] SystemBasic Metabolic Panel on 31-22-0242Iygrv gap [Moles/Vol]8 mmol/L5 - 15 mmol/[facility] Calcium [Mass/Vol]8.2 mg/dLLow8.5 - 10.5 mg/dLChillicothe VA Medical Center SystemChloride [Moles/Vol]104 mmol/L98 - 109 mmol/[facility] HospitaloMeddekalb regional medical center Health SystemCO2 [Moles/Vol]25 mmol/L22 - 32 mmol/[facility] Rockwallica Health SystemCreatinine [Mass/Vol]0.89 mg/dL0.40 - 1.00 mg/dLChillicothe VA Medical Center SystemComment on above:METHOD TRACEABLE TO [facility] STANDARDeGFR (CKD-EPI)non-race jdsufcacp76- Critical access hospitalComment on above: Reported eGFR is based on the CKD-EPI 2020 equation that does not use a race coefficient. Glucose [Mass/Vol]215 mg/bEIcyg93 - 99 mg/dLChillicothe VA Medical Center System Interpretation and review of laboratory resultsAbPelham Medical Center System Potassium [Moles/Vol]4.3 mmol/L3.5 - 5.0 mmol/LProMedica Health SystemSodium [Moles/Vol]137 mmol/L134 - 146 mmol/[facility] Health SystemUrea nitrogen [Mass/Vol]22 mg/dL5 - 23 mg/dLMercy Health Perrysburg HospitalCBC without diffon 01-92-8427Fvgvdyyjikp distribution width (RBC) [Ratio]13.8 %11.5 - 15.0 % [facility] HospitalHematocrit (Bld) [Volume fraction]33.8 %Low35 - 47 % [facility] HospitalHemoglobin (Bld) [Mass/Vol]11.5 g/dLLow11.7 - 15.5 g/dL [facility] HospitalInterpretation and review of laboratory resultsAbnormal [facility]cy HospitalH (RBC) [Entitic mass]29.2 pg27 - 34 [facility] PrebleMCHC (RBC) [Mass/Vol]34.0 g/dL32 - 36 g/dLMercy Health Perrysburg HospitalMCV (RBC) [Entitic vol]86 fL80 - 100 [facility] CenterPlatelet mean volume (Bld) [Entitic vol]7.6 fL7 - 12 [facility] CenterPlatelets (Bld) [#/Vol]183 10*3/[facility]aginawRBC (Bld) [#/Vol]3.94 10*6/[facility]-SaginawWBC corrected for nucl RBC Auto (Bld) [#/Vol]4.0[facility] HospitalGlucose Glucometer (BldC) [Mass/Vol]on 01-98-3139Orxdlis [Mass/Vol]309 mg/bFGvkq10 - 99 mg/dLMercy Health Perrysburg HospitalInterpretation and review of laboratory resultsAbnoJames E. Van Zandt Veterans Affairs Medical CenterGlucose [Mass/Vol]236 mg/zZVsno83 - 99 mg/dLMercy Health Perrysburg Hospital Interpretation and review of laboratory resultsAbAurora Medical Center Manitowoc CountyMagnesiumon 15-59-6343Nmyzvlzwx [Mass/Vol]2.0 mg/dL1.8 - 2.6 mg/dLMercy Health Perrysburg HospitalNo Panel Informationon 33-69-4190QniTzgwkaSelect Medical TriHealth Rehabilitation HospitalBasic Metabolic Panelon 09-88-2032Fasrn gap [Moles/Vol]10 mmol/L5 - 15 mmol/LPrZanesville City HospitalCalcium [Mass/Vol]8.3 mg/dLLow8.5 - 10.5 mg/dL [facility] HospitalChloride [Moles/Vol]100 mmol/L98 - 109 mmol/[facility] HospitalCO2 [Moles/Vol]25 mmol/L22 - 32 mmol/[facility] Creatinine [Mass/Vol]0.87 mg/dL0.40 - 1.00 mg/dLMercy Health Perrysburg HospitalComment on above:METHOD TRACEABLE TO [facility] STANDARDeGFR (CKD-EPI)non-race oqaoqyjka87- Critical access hospitalComment on above: Reported eGFR is based on the CKD-EPI 2020 equation that does not use a race coefficient. Glucose [Mass/Vol]301 mg/vIMdwc98 - 99 mg/dLMercy Health Perrysburg Hospital Interpretation and review of laboratory resultsAbnoPsychiatric hospital Potassium [Moles/Vol]4.0 mmol/L3.5 - 5.0 mmol/[facility] Orthopedic Hospitalodium [Moles/Vol]135 mmol/L134 - 146 mmol/[facility] Anthony's HospitalUrea nitrogen [Mass/Vol]28 mg/dLHigh5 - 23 mg/dLMercy Health Perrysburg HospitalCB without diffon 95-69-6306Ysksdmcbflr distribution width (RBC) [Ratio]13.4 %11.5 - 15.0 % [facility] HospitalHematocrit (Bld) [Volume fraction]36.6 %35 - 47 % [facility] HospitalHemoglobin (Bld) [Mass/Vol]12.3 g/dL11.7 - 15.5 g/dL [facility] HospitalH (RBC) [Entitic mass]28.9 pg27 - 34 [facility] PrebleMCHC (RBC) [Mass/Vol]33.6 g/dL32 - 36 g/dLMercy Health Perrysburg HospitalMCV (RBC) [Entitic vol]86 fL80 - 100 [facility] CenterPlatelet mean volume (Bld) [Entitic vol]7.4 fL7 - 12 [facility] CenterPlatelets (Bld) [#/Vol]220 10*3/[facility]-SaginawRBC (Bld) [#/Vol]4.26 10*6/[facility]aginawWBC corrected for nucl RBC Auto (Bld) [#/Vol]5.1PLatrobe HospitalGlucose Glucometer (BldC) [Mass/Vol]on 11-64-3927Kvokgyo [Mass/Vol]283 mg/fUUjoz92 - 99 mg/dLMercy Health Perrysburg HospitalGlucose [Mass/Vol]269 mg/jPObgf32 - 99 mg/dLMercy Health Perrysburg HospitalInterpretation and review of laboratory resultsAbnoJames E. Van Zandt Veterans Affairs Medical CenterGlucose [Mass/Vol]402 mg/dLCritically high65 - 99 mg/dLMercy Health Perrysburg Hospital Interpretation and review of laboratory resultsAbAurora Medical Center Manitowoc CountyGlucose [Mass/Vol]325 mg/sOXesv51 - 99 mg/dLMercy Health Perrysburg HospitalInterpretation and review of laboratory resultsAbSt. Mary Medical CenterMagnesiumon 95-30-8549Qkqpbxqwd [Mass/Vol] 1.9 mg/dL1.8 - 2.6 mg/dLMercy Health Perrysburg HospitalNo Panel Informationon 12-22-2023 [facility] HospitalBasic Metabolic Panelon 43-12-6070Ixoom gap [Moles/Vol]9 mmol/L5 - 15 mmol/[facility] HospitaloMedica Health SystemCalcium [Mass/Vol]8.7 mg/dL8.5 - 10.5 mg/dLMercy Health Perrysburg HospitalChloride [Moles/Vol]96 mmol/LLow98 - 109 mmol/L [facility] HospitalCO2 [Moles/Vol]29 mmol/L22 - 32 mmol/LPrSt. Charles Hospital SystemCreatinine [Mass/Vol]0.80 mg/dL0.40 - 1.00 mg/dLMercy Health Perrysburg Hospital Comment on above:METHOD TRACEABLE TO [facility] STANDARDeGFR (CKD-EPI)non-race dependent- Critical access hospitalComment on above: Reported eGFR is based on the CKD-EPI 2020 equation that does not use a race coefficient. Glucose [Mass/Vol]340 mg/xEInyp84 - 99 mg/dLMercy Health Perrysburg Hospital Interpretation and review of laboratory resultsAbHudson River State Hospital Potassium [Moles/Vol]4.2 mmol/L3.5 - 5.0 mmol/LProMedica Health SystemSodium [Moles/Vol]134 mmol/L134 - 146 mmol/[facility]'s HospitalUrea nitrogen [Mass/Vol]27 mg/dLHigh5 - 23 mg/dLMercy Health Perrysburg HospitalCBC without diffon 84-24-5975Amcrgfliiqi distribution width (RBC) [Ratio]13.2 %11.5 - 15.0 % [facility] HospitalHematocrit (Bld) [Volume fraction]36.6 %35 - 47 % [facility] HospitalHemoglobin (Bld) [Mass/Vol]12.6 g/dL11.7 - 15.5 g/dL [facility] HospitalMCH (RBC) [Entitic mass]29.0 pg27 - 34 [facility] PrebleMCHC (RBC) [Mass/Vol]34.3 g/dL32 - 36 g/dLMercy Health Perrysburg HospitalMCV (RBC) [Entitic vol]85 fL80 - 100 [facility] CenterPlatelet mean volume (Bld) [Entitic vol]7.3 fL7 - 12 [facility] CenterPlatelets (Bld) [#/Vol]213 10*3/[facility]aginawRBC (Bld) [#/Vol]4.33 10*6/[facility]aginawWBC corrected for nucl RBC Auto (Bld) [#/Vol]5.0[facility] HospitalGlucose Glucometer (BldC) [Mass/Vol]on 69-85-4990Gruehie [Mass/Vol]363 mg/gZReze94 - 99 mg/dLMercy Health Perrysburg HospitalInterpretation and review of laboratory resultsAbnoJames E. Van Zandt Veterans Affairs Medical CenterGlucose [Mass/Vol]323 mg/fOIymq59 - 99 mg/dLMercy Health Perrysburg Hospital Interpretation and review of laboratory resultsAbAurora Medical Center Manitowoc CountyGlucose [Mass/Vol]307 mg/kGQcgt06 - 99 mg/dLMercy Health Perrysburg HospitalInterpretation and review of laboratory resultsAbSt. Mary Medical CenterGlucose [Mass/Vol]on 12-21-2023 Interpretation and review of laboratory resultsAbAurora Medical Center Manitowoc CountyGlucose random or fastingon 95-41-8850Nvaacfc [Mass/Vol] 409 mg/dLCritically high65 - 99 mg/dLMercy Health Perrysburg HospitalMagnesiumon 25-33-2363Ishizvhaq [Mass/Vol]1.9 mg/dL1.8 - 2.6 mg/dLMercy Health Perrysburg HospitalNo Panel Informationon 58-72-9237RlmDdteiiSelect Medical TriHealth Rehabilitation HospitalAcetone, (BetaHydroxybutyrate, Ketone) quantitative, serumon 43-54-8202Bpbx hydroxybutyrate [Moles/Vol]0.14 mmol/L0.02 - 0.27 mmol/LPrZanesville City Hospital Beta hydroxybutyrate [Moles/Vol]on 94-74-2492JubLktitaSelect Medical TriHealth Rehabilitation HospitalCBC auto differentialon 15-48-1640Dmrckizha (Bld) [#/Vol]0.0 10*3/uLMercy Health Perrysburg HospitalBasophils/100 WBC (Bld)0.5 %[facility] HospitalEosinophils (Bld) [#/Vol]0.1 10*3/uLMercy Health Perrysburg HospitalEosinophils/100 WBC (Bld)1.1 %[facility] HospitalErythrocyte distribution width (RBC) [Ratio]13.6 %11.5 - 15.0 % [facility] HospitalHematocrit (Bld) [Volume fraction]40.4 %35 - 47 % [facility] HospitalHemoglobin (Bld) [Mass/Vol]13.2 g/dL11.7 - 15.5 g/dL [facility] HospitalLymphocytes (Bld) [#/Vol]2.3 10*3/uLMercy Health Perrysburg HospitalLymphocytes/100 WBC (Bld)37.6 %[facility] HospitalMCH (RBC) [Entitic mass]28.8 pg27 - 34 pgPSelect Medical TriHealth Rehabilitation HospitalMCHC (RBC) [Mass/Vol]32.8 g/dL32 - 36 g/dLMercy Health Perrysburg HospitalMCV (RBC) [Entitic vol]88 fL80 - 100 [facility] CenterMonocytes (Bld) [#/Vol]0.4 10*3/uLMercy Health [facility] Hospital Monocytes/100 WBC (Bld)6.3 %[facility] SystemNeutrophils (Bld) [#/Vol]3.3 10*3/[facility]awNeutrophils/100 WBC (Bld)54.5 %[facility] SystemPlatelet mean volume (Bld) [Entitic vol]7.6 fL7 - 12 fLPPaulding County Hospital SystemPlatelets (Bld) [#/Vol]227 10*3/[facility] SystemRBC (Bld) [#/Vol] 4.60 10*6/[facility]aginawWBC corrected for nucl RBC Auto (Bld) [#/Vol] 6.1PNorristown State HospitalComprehensive metabolic panelon 28-32-5773Inrjhxm [Mass/Vol]3.4 g/dL3.2 - 5.3 g/dLMercy Health Perrysburg HospitalALP [Catalytic activity/Vol]91 U/L39 - 130 U/[facility] HospitalALT No additional P-5'-P [Catalytic activity/Vol]23 U/L0 - 31 U/[facility] SystemAnion gap [Moles/Vol]12 mmol/L5 - 15 mmol/[facility] HospitalAST [Catalytic activity/Vol]17 U/L0 - 41 U/[facility] SystemBilirubin [Mass/Vol]0.4 mg/dL0.3 - 1.2 mg/dLMercy Health Perrysburg HospitalCalcium [Mass/Vol]9.0 mg/dL8.5 - 10.5 mg/dLMercy Health Perrysburg HospitalChloride [Moles/Vol]87 mmol/LLow98 - 109 mmol/[facility] SystemCO2 [Moles/Vol]24 mmol/L22 - 32 mmol/L [facility] HospitalCreatinine [Mass/Vol]1.17 mg/dLHigh0.40 - 1.00 mg/dL [facility] HospitalComment on above:METHOD TRACEABLE TO IDMS STANDARDeGFR (CKD-EPI)non-race sgoivrskb14Osw- PINSaint Luke's North Hospital–SmithvilleComment on above: Reported eGFR is based on the CKD-EPI 2020 equation that does not use a race coefficient. Glucose [Mass/Vol]928 mg/dLCritically high65 - 99 mg/dLProMedica Health System Interpretation and review of laboratory resultsAbHudson River State Hospital Potassium [Moles/Vol]4.7 mmol/L3.5 - 5.0 mmol/LProMeddekalb regional medical center Health SystemProtein [Mass/Vol]7.5 g/dL6.0 - 8.0 g/dLCannon Memorial Hospitalodium [Moles/Vol]123 mmol/MLtm979 - 146 mmol/LPrZanesville City HospitalUrea nitrogen [Mass/Vol]31 mg/dL High5 - 23 mg/dLLankenau Medical CenterD-Dimeron 34-29-8416Chtnjt D-dimer DDU (PPP) [Mass/Vol][facility] HospitalComment on above: Results <255 ng/mL DDU: The presence of a VTE can safely be excluded with a negative D-Dimer result and Wells score. A negative result doesn't exclude the possibility of DIC. The test be repeated along with other diagnostic tests if the patient's symptoms persist or worsen. [email or web address] ECG 12 leadon 05-64-1728TEAUKKUVENTWGLNflMimfdf Health SystemFibrin D-dimer DDU (PPP) [Mass/Vol]on 06-24-3546ZpyLjvgdkSelect Medical TriHealth Rehabilitation HospitalGlucose Glucometer (BldC) [Mass/Vol]on 93-71-4285Mgyabpc [Mass/Vol]350 mg/jGVjtr23 - 99 mg/dLMercy Health Perrysburg HospitalInterpretation and review of laboratory resultsAbnoJames E. Van Zandt Veterans Affairs Medical CenterGlucose [Mass/Vol]mg/dLCritically high65 - 99 mg/dLMercy Health Perrysburg HospitalComment on above:SEE LAB RESULTS FOR CONFIRMATION Interpretation and review of laboratory resultsAbAurora Medical Center Manitowoc CountyGlucose [Mass/Vol]mg/dLCritically high65 - 99 mg/dL [facility] HospitalComment on above:SEE LAB RESULTS FOR CONFIRMATION Interpretation and review of laboratory resultsAbAurora Medical Center Manitowoc CountyGlucose [Mass/Vol]mg/dLCritically high65 - 99 mg/dL [facility] HospitalComment on above:SEE LAB RESULTS FOR CONFIRMATION Interpretation and review of laboratory resultsAbnoRiver Falls Area HospitalNatriuretic peptide B [Mass/Vol]on 20-99-7974Muhdnpboatf peptide B (Bld) [Mass/Vol]10 pg/mLNINF - 100.0 pg/mLMoses Taylor HospitalPOCT Nursing Urine Macroscopic UAon 38-76-1115Ozlzwerwi Ql (U)NegativeNegative^NegativeMercy Health Perrysburg HospitalGlucose [Mass/Vol]mg/dL AbnormalNegative^Negative mg/dLMercy Health Perrysburg HospitalHemoglobin Ql (U)Negative Negative^NegativeMercy Health Perrysburg HospitalInterpretation and review of laboratory resultsAbnormCincinnati VA Medical CenterKetones (U) [Mass/Vol]Negative Negative^Negative mg/dLMercy Health Perrysburg HospitalLeukocyte esterase Test strip Ql (U)NegativeNegative^NegativeMercy Health Perrysburg HospitalNitrite Ql (U)Positive AbnormalNegative^NegativeMercy Health Perrysburg HospitalpH (U)5.0 [pH]5.0 - 8.5PSelect Medical TriHealth Rehabilitation HospitalProtein Ql (U)NegativeNegative^Negative mg/dLCannon Memorial Hospitalpecific gravity (U) [Rel density]<=1.0051.003 - 1.035Mer[facility] HospitalUrobilinogen Qn (U)0.2NINFLankenau Medical Center Troponin I, High Sensitivityon 58-59-8230Jtziukmg I.cardiac High sensitivity method [Mass/Vol]ng/LNINF - 16 ng/LPrSt. Charles Hospital SystemTroponin I, High Sensitivity 1 Houron 07-46-2802Nvhcyhmi I.cardiac High sensitivity method [Mass/Vol]3 ng/LNINF - 16 ng/LProMedica St. Anthony'S Hospital SystemTroponin I.cardiac High sensitivity method [Mass/Vol]on 23-37-9401MrhUgsxddMonroe Clinic Hospital SystemXR Chest Single viewon 38-92-3507Zdjvfc view chest History:sob Difficulty breathing, shortness of breath Comparison: 06/04/2023 Findings: Single portable view of the chest. Stable cardia mediastinal silhouette. No focal opacity, effusionor pneumothorax. Impression: No evidence of acute cardiac pulmonary process. Finalized by Aliya Gan MD on 12/20/2023 5:35 PMSAliya Thomas MD - 12/20/2023 Single view chest History:sob Difficulty breathing, shortness of breath Comparison: 06/04/2023 Findings: Single portable view of the chest. Stable cardia mediastinal silhouette. No focal opacity, effusionor pneumothorax. Impression: No evidence of acute cardiac pulmonary process. Finalized by Aliya Gan MD on 12/20/2023 5:35 PM [facility] Medical CenterOBX Computing Corporation Ascension MacombRadiology Study observation (narrative)[facility]exner Medical CenterSuperplayerXR Chest Single viewOrdered By: Aliya Gan on 45-94-0889HivNbgkiy Health [employer] Work Phone: Coding Summaryon 67-93-9320Pewomd SummaryHTMLBase 64 EbcgllehTYo4hQh+PGhlYWQ+ZG0KXRRbF84wbDDvlC4rI6KNURwGDanzADBXUUnOJgNbqrOzEB1oiGHq ZXJu [file] ZTo (more content not included)...[facility] HospitalCoding Summaryon 03-46-7871Thqvxa SummaryHTMLBase 64 EiamisvmCKo0bUe+PGhlYWQ+XH5LWHKyQ38hzTNdiI2fV8PZVBiGFwtiJMYAVUrFWzHepcBzVT6ntMZz ZXJu [file] ci1 (more content not included)...[facility] Medical CenterConsent Formson 99-59-3216Lkkerpf [id number]#1.00OTKettering Health HamiltonDischarge Instructionson 02-29-4313Aytmvolts Instructions [id number]#1.00OTBerger Hospital Anesthesia Noteon 83-08-0939Qzkvrdxvmp NotePatient: CARISSA SANTOS Age: 43 years Sex: FEMALE : 1980 Associated Diagnoses: None Author: Ryan Abrams MD Postoperative Information Anesthetic utilized: Monitored anesthesia care. Assessment Anesthetic outcome No anesthetic complications noted. Plan Transfer/ Discharge: Patient can be discharged from PACU when criteria met. Condition good. [Electronically Signed on: 09/25/2023 08:49 EST] Ryan Abrams MD [Verified on: 09/25/2023 08:49 EST] Ryan Abrams MDCincinnati Children's Hospital Medical CenterAnesthesia NotePatient: CARISSA SANTOS Age: 43 years Sex: FEMALE [...] (past medical history): All Problems Diabetes / [facility] 865765288 / Confirmed HTN (hypertension) / [facility] 0956780787 / Confirmed Histories Family History: No family history items have been selected or recorded. Procedure history: Genital warts (930590742). Cholecystectomy (47718409). Social History Electronic Cigarette/Vaping Assessment Electronic Cigarette [...] Oriented. Review / Management Laboratory Results Plan [place] [employer] Anesthesiologists#(ASA) physical status classification: Class II. Anesthetic Preoperative Plan Anesthesia: Monitored anesthesia care. Anesthetic plan, risks, benefits, and alternatives discussedwith the patient and/or family. Patient verbalized understanding. Informed consent was given. Anesthetic technique: Monitored anesthesia care, When patient asked about lamictal she said 'i don't knowwhy i take that'. I asked if she ever had any seizures or a history; she said she had one when she was 15 and 'none since'. Otherwise, all questions answered and informed consent obtained. . [Electronically Signed on: 09/25/2023 07:49 EST] Ryan Abrams MD [Verified on: 09/25/2023 07:49 EST] Ryan Abrams MDNoPremier HealthInpatient Patient Summaryon 09-25-2023 [place] [address] Patient Discharge Instructions Name: CARISSA SANTOS : 1980 Patient Address: [address] [place] [address] Primary Care Provider: Name: DIAZ DALTON After you are discharged if you find you have any questions, please, call [phone] ext [phone] to speak to a nurse. Discharge Diagnosis: Carpal tunnel syndrome, left; HTN (hypertension); Preop testing; Type 2 diabetes mellitus Prescription Information: If you have been given a prescription for narcotics, seek immediate medical attention if you have any difficulty breathing or any sudden status changes such as confusion andsleepiness. If you or anyone you know is experiencing suicidal thoughts, mental health, alcohol and/or drug addiction problems; contact the [facility] 27/03 Crisis Hotline -Text 4HNCU sf 914057. If you received any narcotics, sedation, or [...] business decisions or sign any legal documents [facility] would like to thank you for allowing us to assist you with your healthcare needs.The following includes patient education materials and information regarding your injury/illness. CARISSA SANTOS has been given the following list of follow-up instructions, prescriptions, andpatient education materials: Follow-up Instructions With: Address: When: Barry Snowden [address] [place] [phone] [facility] (1) 10/05/2023 11:00 AM Medications During the [...] mg/0.5 mL subcutaneous solution) 0.5 Milliliter Subcutaneous (underthe skin) every week. insulin aspart (NovoLOG FlexPen 100 units/mL injectable solution) sliding scale Subcutaneous (underthe skin) 2 times a day (scheduled). insulin glargine (Lantus 100 units/mL subcutaneous solution) 15 Subcutaneous (under the skin) everyday. lamoTRIgine (lamoTRIgine 200 mg oral tablet, extended release) 1 tab(s) Oral (given by mouth) everyday. nabumetone (nabumetone 500 mg oral tablet) 2 [...] mg/0.5 mL subcutaneous solution) 0.5 Milliliter Subcutaneous (underthe skin) every week. insulin aspart (NovoLOG FlexPen 100 units/mL injectable solution) sliding scale Subcutaneous (underthe skin) 2 times a day (scheduled). insulin glargine (Lantus 100 units/mL subcutaneous solution) 15 Subcutaneous (under the skin) everyday. lamoTRIgine (lamoTRIgine 200 mg oral tablet, extended release) 1 tab(s) Oral (given by mouth) everyday. nabumetone (nabumetone 500 mg oral tablet) 2 [...] Contact your doctor pr (more content not included)...[facility] Intraoperative Recordon 66-40-2436XHPG Intraoperative RecordMAGR Intra-Op Record Summary Primary Physician: Gary Miller DO Finalized Date/Time: 09/25/23 08:48:16 Pt. Name: CARISSA SANTOS/Sex: 1980 FEMALE Med Rec #: [id number] Physician: Gary Miller DO Financial #: [id number] Pt. Type: D Room/Bed: / Admit/Disch: 09/25/23 [...] 2 Entry 3 Case Attendee Gary Miller Lauren L RN Fullam, William MD Andrew DO Role Performed Surgeon - Primary Park Interpretive Ranger Anesthesiologist of Record Time In 09/25/23 08:10:00 09/25/23 08:10:00 09/25/23 08:10:00 Time Out 09/25/23 08:38:00 09/25/23 08:41:00 09/25/23 08:41:00 Procedure Carpal Tunnel Carpal Tunnel Carpal Tunnel Release(Left) Release(Left) Release(Left) Last Modified By: Allyson Alfred RN, Lauren L RN Wheeler, Lauren L RN 09/25/23 08:43:33 09/25/23 08:43:21 09/25/23 08:43:21 Entry 4 Entry 5 Case Attendee Dayna Roberson CST, CST, Kelly CST CSFDesire Role Performed Founder Scrub Relief Time In 09/25/23 08:10:00 09/25/23 [...] Primary Surgeon Gary Miller DO Surgeon Comment Carpal Tunnel Release [...] Other Concerns Yes Implemented Addressed Time Out Gary Miller Time Out Time 09/25/23 08:18:00 Participants Aubrie Carlos DO, Lauren L RN, Ryan Abrams MD, Da INTEGRATION ARCHITECT, Dayna INTEGRATION ARCHITECT CSFA, Mila Wyatt INTEGRATION ARCHITECT Last Modified By: Allyson Alfred RN 09/25/23 [...] Uncrossed? Yes Press Points (more content not included)...[facility] Postoperative Recordon [id number] Postoperative RecordMAGR Phase II Record Summary Primary Physician: Gary Miller DO Finalized Date/Time: 09/25/23 10:39:28 Pt. Name: CARISSA SANTOS/Sex: 1980 FEMALE Med Rec #: [id number] Physician: Gary Miller DO Financial #: [id number] Pt. Type: D Room/Bed: / Admit/Disch: 09/25/23 06:07:34 - Institution: Phase II Case Times MAGR Pre-Care Text: Patient is free from s/s of injury. Patient remains free from compromised physical state related tosurgery or anesthesia. Patient comfort maintained. Patient/family verbalize understanding of discharge instructions. Entry 1 In PACU II 09/25/23 08:41:00 Discharge from PACU 09/25/23 09:58:00 II Last Modified By: Jennyefr Gresham RN 09/25/23 10:39:24 Post-Care Text: The patient remains free from s/s of injury. Patient's vital signs stable, circulation maintained, return to preop mental and physical status, opsite/dressing intact, minimal or absent nausea and vomiting, tolerates po intake. Patient verbalizes adequate pain control. Patient/family express understanding of discharge instructions. Finalized By: Jennyfer Gresham RN Document Signatures Signed By: Jennyfer Gresham RN 09/25/23 10:39NoSt. [facility] Hospital Preoperative Recordon [id number] Preoperative RecordMAGR Pre-Op Record Summary Primary Physician: Gary Miller DO Finalized Date/Time: 09/25/23 08:48:38 Pt. Name: CARISSA SANTOS/Sex: 1980 FEMALE Med Rec #: [id number] Physician: Gary Miller DO Financial #: [id number] Pt. Type: D Room/Bed: / Admit/Disch: 09/25/23 [...] ready for surgery. The patient remains free froms/s of injury. Patient/family express understanding of plan of care and participate in decisions affectinghis or her perioperrative plan of care. Allergies documented appropriately. Patient identifiers and consent correct. General Comments: Pt arrives to w ambulatory. Pt denies cp, sob, cough or flu like symptoms. Pt denies pacemaker/defibillator or sleep apnea. Finalized By: Allyson Alfred RN Document Signatures Signed By: Allyson Alfred RN 09/25/23 08:48[facility] Medical CenterPatient Handouton 36-24-3745Mtexpky HandoutDRBrian MILLER'S POST OPERATIVE CARPAL TUNNEL INSTRUCTIONS: SURGEON'S WRITTEN INSTRUCTIONS: 1. Keep your hand elevated above your elbow for the first 24 hours after surgery. 2. Wiggle your fingers frequently while awake. 3. DO NOT lift heavy objects or test deskman forcefully with your hand. 4. Change your dressing in 1 day and apply an marco a bandage as directed with the thumb tucked towardsthe palm of your hand. This keeps the tension off your incision. 5. You may shower in 1 day but do not submerge your hand under water. Put a 4x4 gauze and the marco a bandage back on after you shower. 6. If you have any problems or concerns, please call the office at [phone]. 7. Follow up as scheduled.[facility] Medical CenterPregnancy Test Serum 1on 05-70-2693Yzqb Serum Internal ControlOKCincinnati Children's Hospital Medical CenterComment on above: Performed By: #### [id number] ####[facility] (DEFAULT)[address] [place] [address] 77337Cyivtlztr Test Serum QualNegativeCincinnati Children's Hospital Medical CenterComment on above:Performed By: #### [id number] ####[facility] (DEFAULT)[address] [place] [address] 06498Vnwmuibn Note - Nurseon 96-79-2553Tksihttn Note - NurseSpoke with pt and informed her to be here at 0630 and NPO after MN, she verbalizes understanding. [Electronically Signed on: 09/22/2023 09:47 EST] Kalyani Ortiz RN [Verified on: 09/22/2023 09:47 EST] Kalyani Ortiz [facility] HospitalProgress Note - Nurseon 09-15-2023 Progress Note - NurseDr Luda reviews pt chart and no new orders were received. [Electronically Signed on: 09/15/2023 11:46 EST] Kalyani Ortiz RN [Verified on: 09/15/2023 11:46 EST] Kalyani Ortiz [facility] HospitalProess Note - Nurseon 09-14-2023 Progress Note - NursePAT review done per Dr. Lares, order received. [Electronically Signed on: 09/14/2023 14:38 EST] Katelyn Moon RN [Verified on: 09/14/2023 14:38 EST] Katelyn Moon RNNormSycamore Medical Center.Auto Diff 1on 38-56-6509Osfn Potter %4 % Normal1-12Mag[facility]uder HospitalComment on above:Performed By: #### [id number], [id number], [id number] ####[facility] (DEFAULT)[address] [place] [address] 37738Mklf Abs#0.0 o05Hyilzr5.0-0.2Magruder HospitalComment on above: Performed By: #### [id number], [id number], [id number] ####[facility] (DEFAULT)[address] [place] [address] 12684Pcmldjlek/100 WBC (Bld)0.8 % Normal0.2-2.0Mag[facility]uder HospitalComment on above:Performed By: #### [id number], [id number], [id number] ####[facility] (DEFAULT)[address] [place] [address] 77869Zei Abs#0.1 e10Yqahwl9.0-0.4Mag[facility]uder HospitalComment on above: Performed By: #### [id number], [id number], [id number] ####[facility] (DEFAULT)[address] [place] [address] 00845Hxukyfwrsds/100 WBC (Bld)1.2 % Normal0.9-4.0Mag[facility]uder HospitalComment on above:Performed By: #### [id number], [id number], [id number] ####[facility] (DEFAULT)[address] [place] [address] 98003Diyiu Abs#2.0 f18Ohkspj3.3-2.9Mag[facility]uder HospitalComment on above:Performed By: #### [id number], [id number], [id number] ####[facility] (DEFAULT)[address] [place] [address] 12966Gimicxbbwuz/100 WBC (Bld)40 % Zgctxg30-00Bnjbfknq HospitalComment on above:Performed By: #### [id number], [id number], [id number] ####[facility] (DEFAULT)[address] [place] [address] 24223Htje Abs#0.2 r43Alfamz9.0-0.8[facility] HospitalComment on above: Performed By: #### [id number], [id number], [id number] ####[facility] (DEFAULT)[address] [place] [address] 82697Sxjz Abs#2.7 j40Nkmzeg2.5-9.[address] [facility] HospitalComment on above:Performed By: #### [id number], [id number], [id number] ####[facility] (DEFAULT)[address] [place] [address] 42838 Neutrophils/100 WBC (Bld)54 %Rduwlw90-12Xzbcobvv HospitalComment on above: Performed By: #### [id number], [id number], [id number] ####[facility] (DEFAULT)[address] [place] [address] 18280IDK Standardon 23-05-1114mOUV Non AA>60Invalid Interpretation CodeMercy Health St. Rita'S Medical Center HospitalComment on above:Performed By: #### [id number], [id number], [id number] ####[facility] (DEFAULT)[address] [place] [address] 20644pFON AA>60Invalid Interpretation CodeMercy Health St. [facility]'S Medical Center HospitalComment on above:Performed By: #### [id number], [id number], [id number] ####[facility] (DEFAULT)[address] [place] [address] 03103Dhsdw gap [Moles/Vol]10.4 mmol/LNormal5.0-19.0[facility] HospitalComment on above:Performed By: #### [id number], [id number], [id number] ####[facility] (DEFAULT)[address] [place] [address] 01063Zmbodtr [Mass/Vol]8.9 mg/dLNormal8.9-10.3Mriverview health institute HospitalComment on above:Performed By: #### [id number], [id number], [id number] ####[facility] (DEFAULT)[address] [place] [address] 44789Bebrlvbp [Moles/Vol]102 mmol/LJyyvhu384-811Xczadnil HospitalComment on above:Performed By: #### [id number], [id number], [id number] ####[facility] (DEFAULT)[address] [place] [address] 31773XP4 [Moles/Vol]27 mmol/JYborgk13-23Aqbynged HospitalComment on above:Performed By: #### [id number], [id number], [id number] ####[facility] (DEFAULT)[address] [place] [address] 57814Eshatvkqnb [Mass/Vol]0.76 mg/dLNormal0.60-1.30[facility] HospitalComment on above:Performed By: #### [id number], [id number], [id number] ####[facility] (DEFAULT)[address] [place] [address] 40068Njiwjcl [Mass/Vol]276.0 mg/uKQodc24.0-118.0[facility] HospitalComment on above:Performed By: #### 6551528, [id number], [id number] ####[facility] (DEFAULT)[address] [place] [address] 29499Xqqnfhwyzh 282 mOsm/LInvalid Interpretation CodeMercy Health St. [facility] Center HospitalComment on above:Performed By: #### [id number], [id number], [id number] ####[facility] (DEFAULT)[address] [place] [address] 79903Qkeycetih [Moles/Vol]4.4 mmol/LNormal3.6-5.[address] HospitalComment on above:Performed By: #### 9150559, [id number], [id number] ####[facility] (DEFAULT)[address] [place] [address] 73927 Sodium [Moles/Vol]135.0 mmol/JPnb693.0-144.0[facility] HospitalComment on above: Performed By: #### [id number], [id number], [id number] ####[facility] (DEFAULT)[address] [place] [address] 90861Fruy nitrogen [Mass/Vol]18 mg/dL Normal8-26[facility] HospitalComment on above:Performed By: #### [id number], [id number], [id number] ####[facility] (DEFAULT)[address] [place] [address] 79508Cvqf nitrogen/Creatinine [Mass ratio]23.6 mg/mgHigh4.6-16.2 [facility] HospitalComment on above:Performed By: #### [id number], [id number], [id number] ####[facility] (DEFAULT)[address] [place] [address] 87725 CBC w/ Auto Diffon 78-75-5067Spfnlcaebbe distribution width (RBC) [Ratio]13.5 % Mybqar18.5-15.0[facility] HospitalComment on above:Performed By: #### [id number], [id number], [id number] #### [facility] (DEFAULT) [address] [place] [address] 25876Hithtikkgw (Bld) [Volume fraction]42.9 %High33.7-40.4 [facility] HospitalComment on above:Performed By: #### [id number], [id number], [id number] #### [facility] (DEFAULT) [address] [place] [address] 70393Viczomryqw (Bld) [Mass/Vol]14.1 g/nRYthrqp79.3-15.9 [facility] HospitalComment on above:Performed By: #### [id number], [id number], [id number] #### [facility] (DEFAULT) [address] [place] [address] 03310Nbq Diff?AutoInvalid Interpretation [facility] Comment on above:Performed By: #### [id number], [id number], [id number] #### [facility] (DEFAULT) [address] [place] [address] 61020VWF (RBC) [Entitic mass]28 ppRhmkex86-79Owtzudts Hospital Comment on above:Performed By: #### [id number], [id number], [id number] #### [facility] (DEFAULT) [address] [place] [address] 93071WRUO (RBC) [Mass/Vol]33 g/dLVkquvj07-52Towpukih [facility] Comment on above:Performed By: #### [id number], [id number], [id number] #### [facility] (DEFAULT) [address] [place] [address] 40648AHX (RBC) [Entitic vol]87 xQYmldjv96-221[facility] Comment on above:Performed By: #### [id number], [id number], [id number] #### [facility] (DEFAULT) [address] [place] [address] 69805Whtvpyfg893 g67Rrppmd433-398Cahkvvho HospitalComment on above:Performed By: #### [id number], [id number], [id number] #### [facility] (DEFAULT) [address] [place] [address] 43982Wqbcydjp mean volume (Bld) [Entitic vol]6.9 fLNormal 6.3-10.2Mriverview health institute HospitalComment on above:Performed By: #### [id number], [id number], [id number] #### [facility] (DEFAULT) [address] [place] [address] 07166BJX7.95 f66Guwitg1.70-5.30[facility] HospitalComment on above:Performed By: #### [id number], [id number], [id number] #### [facility] (DEFAULT) [address] [place] [address] 93705ZSM2.1 c38Kuztyz0.5-10.5[facility] HospitalComment on above: Performed By: #### 2658783, [id number], [id number] #### [facility] (DEFAULT) [address] [place], [place] [address]FUVX HCG QUALon 64-26-5644UNCHUKRKN, QUALNegativeNormal NEGATIVEThe [facility] Southeastern Medical CenterComment on above:Performed By: #### PREG #### [facility] [address] [place], [place] [address] Dr. Dipika RappUS PELVIS AND TRANSVAGon 54-11-6364ID PELVIS AND TRANSVAG EXAMINATION: US PELVIS AND [...] Electronically authenticated by: HARVINDER DELEON Date: 2022-12-26 14:02[facility] HealthOffice Visiton [id number]-up [id number] Carissa Santos 1980 F Date Provider Department Center 12/07/2022 ONEYDA GUERRA MPORTSHAMAR Family History Problem Relation Age of Onset Diabetes Mother Leukemia Father Family Status - Relation Status Age at Mother Father Level of Service:02113 [place] POSTOP FOLLOW UP VISIT RELATED TO ORIGINAL PX (GC) Reason for Visit and Comments: Post-op [483][facility]HP[facility] 90-76-9613CCQ&P reviewed. The patient was examined and there are no changes to the H&P.Normal Madison HealthHPH&P reviewed. The patient was examined and there are no changes to the H&P.NormalUnSelect Medical Specialty Hospital [facility]ull NURSNOTEon 31-60-4577AIPODZDVFvyssdma operative hand warm to touch, and sorin at the bedside to evaluate. Okay for pt to go home, Good capillary refill, soft no swelling noted. NormalUnSelect Medical Specialty Hospital - TrumbullOPNOTEon 29-37-0362OJSBJQNBRWJEMVJGR SURGERY OPERATIVE REPORT Date of Surgery: 11/21/2022 Surgeon: Robson Paz MD Market Developer: Sorin Farooq MD Preoperative Diagnosis: Left cubital [...] the entirety of the procedure(s). Robson Paz MDNormalUniversity University Hospitals Portage Medical CenterPOCT GLUCOSE METER UNSOLICITED RESULTSon 03-50-4372Abdtxvz [Mass/Vol]74 mg/oOUhmseq94-685EdwqocrdvxSelect Medical Specialty Hospital - TrumbullComment on above:Result Comment: [id number] By: #### [id number] #### [facility] ([facility]) [address] [place], [place] [address]Nfqkhll [Mass/Vol]53 mg/gNHhf96-538ZgjlxtxtlySelect Medical Specialty Hospital - TrumbullComment on above:Result Comment: [id number] By: #### [id number] ####[facility] ([facility])[address] [place], [place] [address]Cxrqcgw [Mass/Vol]73 mg/fIBglvar56-137XvdinpjrfwSelect Medical Specialty Hospital - TrumbullComment on above:Result Comment: [id number] By: #### [id number] ####[facility] ([facility])[address] [place], [place] [address]Nsppaar [Mass/Vol]44 mg/dLInvalid Interpretation Mitx41-407WnksobmlatSelect Medical Specialty Hospital - TrumbullComment on above: Result Comment: [email or web address] Critical Value NotedPerformed By: #### [id number] ####[facility] ([facility])[address] [place], [place] [address]Applwkw [Mass/Vol]53 mg/hSMjk40-718 Madison HealthComment on above:Result Comment: [email or web address] Performed By: #### [id number] ####[facility] ([facility])[address] [place], [place] [address]UXkk 91-46-7577LC Attestation signed by Robson Paz MD at [...] Santos is a 42 y.o. year old akjk-ocum-izdmjttd female presenting for evaluation of left hand [...] Past Medical History: Diagnosis Date Diabetes mellitus ([facility]) Objective General: Body mass index is [...] finger: normal A1 carina and AROM Strength: test deskman 5/5, thumb 5/5, interossei 5/5 Sensation: intact [...] intervention - Instructed patient that our surgical garment assembly supervisor reach out regarding future surgical date - Surgery will be performed under regional anesthesia -Return to clinic for surgical intervention -Call the orthopedic office any questions or concerns Michael Ward MD Orthopedic Surgery Resident Physician Pager: [phone] 11/04/22 12:35 PM By using the attestations [...] may be an additional personal documentation from me.NormalUnSelect Medical Specialty Hospital - TrumbullOffice Visiton 73-42-1627Vkdgox-up [id number] Carissa Santos 1980 F Date Provider Department Center 11/04/2022 Juhi-ROBSON PAZ MP ORTHO MPORTHO Family History Problem Relation Age of Onset Diabetes Mother Leukemia Father Family Status - Relation Status Age at Mother Father Level of Service:64935 [place] OFFICE/OUTPATIENT ESTABLISHED LOW MDM 20-29 MIN Reason for Visit and Comments: Pain [136]NormalUnSelect Medical Specialty Hospital - TrumbullFSHon 98-98-7413ODC26.6 mIU/mLNormalThe [facility] Medical CenterComment on above:Result Comment: Adult Female: Follicular phase 3.5 - 12.5 Ovulation phase 4.7 - 21.5 Luteal phase 1.7 - 7.7 Postmenopausal 25.8 - 134.8Performed By: #### LBCFSH #### [facility] [address] [place] [address] [address] Dipika RappLUTEINIZING HORMONE (LH)on 76-67-2483AS36.9 mIU/mLNormalThe [facility] Medical CenterComment on above:Result Comment: Adult Female: Follicular phase 2.4 - 12.6 Ovulation phase 14.0 - 95.6 Luteal phase 1.0 - 11.4 Postmenopausal 7.7 - 58.5Performed By: #### LBCLH #### [facility] [address] [place] [address] [address] Dipika RappPROLACTINon 73-02-6070Txqrwvamr6.6 ng/mLCritically low4.8-23.3The [facility] CenterComment on above:Performed By: #### PROLAC ####[facility] [address] [place] [address]Dr. Dipika RappCBC AUTO DIFFon 13-41-2784JBNF #0.0 103/ulNormal0.0-0.1The [facility] CenterComment on above:Performed By: #### CBC ####[facility] [address] [place] [address]Dr.Dipika RappBasophils/100 WBC (Bld)0.4 %Normal 0.2-2.0The [facility] Medical CenterComment on above:Performed By: #### CBC ####[facility] [address]ioicmf[address] [place] [address]DrElin ChangEO # 0.1 103/ulNormal0.0-0.7The [facility] Medical CenterComment on above:Performed By: #### CBC ####[facility] [address] [place] [address]Dr. Dipika ChangEosinophils/100 WBC (Bld)0.8 %Critically low0.9-7.0The [facility] Medical CenterComment on above:Performed By: #### CBC ####[facility] Hyqxajucof[address] [place], [place] [address]Dr.Dipika ChangErythrocyte distribution width (RBC) [Ratio]12.5 %Tajehe99.0-15.0The [facility] Comment on above:Performed By: #### CBC ####[facility] Vkdkruzuzt[address] [place], [place] [address]Dr.Dipika RappHematocrit (Bld) [Volume fraction]46.2 %Conccr22.0-48.0The [facility] CenterComment on above:Performed By: #### CBC ####[facility] Jvvwfrcbvq[address] [place], [place] [address]Dr.Dipika RappHemoglobin (Bld) [Mass/Vol]14.9 g/jWQxzrmw15.0-16.0The [facility] CenterComment on above:Performed By: #### CBC ####[facility] Rgynbpmfsn[address] [place], [place] [address]Dr.Vanessalan ChangIG #0.04 10e3/ulCritically high0.00-0.03The [facility] CenterComment on above:Performed By: #### CBC ####[facility] Xtaaxyym[address] [place], [place] [address]Dr.Dipika RappIG %0.5 %Normal0.0-0.5The [facility] HospitalComment on above: Performed By: #### CBC ####[facility] Hrpcduyuru[address] [place], [place] [address]Dr.Dipika RappLYMPH #2.8 103/ulNormal1.2-3.8The [facility] CenterComment on above:Performed By: #### CBC ####[facility] Yukxikoseb[address] [place], [place] [address]Dr.Dipika RappLymphocytes/100 WBC (Bld)34.7 %Joonhn57.5-60.0The [facility] HospitalComment on above:Performed By: #### CBC ####[facility] Hospqlaswa[address] [place], [place] [address]Dr.Dipika RappMANUAL DIFF REQNONormalThe [facility] Medical CenterComment on above:Performed By: #### CBC ####[facility] Yvbzpvsxpo47[address] [place], [place] [address]Dr.Dipika RappMCH (RBC) [Entitic mass]28.3 pgNormal 26.7-34.0The [facility] CenterComment on above:Performed By: #### CBC ####[facility] [address] [place] [address]Dr. Dipika RappHC (RBC) [Mass/Vol]32.3 g/aBJwvgjv11.9-35.2The [facility] Comment on above:Performed By: #### CBC ####[facility] Sldozutfgf[address] [place], [place] [address]Dr.Vanessazackary DionteMCV (RBC) [Entitic vol]87.7 fL Hrcsbk32.0-99.0The [facility] CenterComment on above:Performed By: #### CBC ####[facility] Aqqdxdrzto[address] [place], [place] [address]Dr. Dipika RappMONO #0.4 103/ulNormal0.3-0.8The [facility] CenterComment on above: Performed By: #### CBC ####[facility] Jdnatywopl[address] [place], [place] [address]Dr.Vanessazackary RappMonocytes/100 WBC (Bld)5.0 %Normal 1.7-12.0The [facility] CenterComment on above:Performed By: #### CBC ####[facility] Pfrvjancjq[address] [place], [place] [address]Dr. Dipika RappNEUT #4.7 103/ulNormal1.4-6.5The [facility] CenterComment on above: Performed By: #### CBC ####[facility] R[address]fsvfehxe[address] [place], [place] [address]Dr.Vanessazackary RappNeutrophils/100 WBC (Bld)58.6 %Normal 43.0-75.0The [facility] Medical CenterComment on above:Performed By: #### CBC ####[facility] Mfoxbxnagf[address] [place], [place] [address]Dr. Vanessazackary DiontePlatelet mean volume (Bld) [Entitic vol]9.1 fLCritically low9.5-13.5 The [facility] CenterComment on above:Performed By: #### CBC ####[facility] [address] [place] [address]Dr.Dipika RappPLT194 103/taElytpa901-419Lfv [facility] CenterComment on above:Performed By: #### CBC ####[facility] [address] [place] [address]Dr. Dipika RappRBC5.27 106/ulNormal4.20-5.40The [facility] Medical CenterComment on above: Performed By: #### CBC ####[facility] [address] [place] [address]Dr.Dipika RappWBC8.0 103/ulNormal4.0-11.0The [facility] CenterComment on above:Performed By: #### CBC ####[facility] Rfwxfyxxol[address] [place], [place] [address]Dr.Dipika RappFREE T4on 84-85-2798Vffq T4 [Mass/Vol]1.04 ng/dLNormal0.76-1.46The [facility] Comment on above:Performed By: #### FT4 #### [facility] [address] [place] [address] Dr. Dipika MckeeHodarya 48-71-0266ROZ2.420 uIU/mLNormal0.358-3.740Fostoria City HospitalComment on above:Performed By: #### TSH #### [facility] [address] [place] [address] Dr. Dipika Mann ACOG PANEL 2: 30 to 65on 07-25-2022..NormalThe [facility] Medical CenterComeaton rapids medical center on above:Result Comment: Performed at: WBPerformed By: #### [id number] #### [facility] [address] [place] [address] Dr. Dipika Adame Gdln ACOG Swqseol01-46SlvsjmUekMetroHealth Main Campus Medical CenterComment on above:Performed By: #### [id number] #### [facility] [address] [place] [address] Dr. Dipika RappDIAGNOSIS:CommentMadison HealthComeaton rapids medical center on above: Result Comment: NEGATIVE FOR INTRAEPITHELIAL LESION OR MALIGNANCY. THIS SPECIMEN WAS RESCREENED PART OF OUR WATER SPONGER PROGRAM. Performed at: WBPerformed By: #### [id number] #### [facility] [address] [place] [address] Dr. Dipika Jorgensen AptimaNegativeNormalNegativeKindred Hospital Lima on above:Result Comment: This nucleic acid amplification test detects fourteen high-risk HPV types (16,18,31,33,35,39,45,51,52,56,58,59,66,68) without differentiation. Performed at: =GPerformed By: #### [id number] #### [facility] [address] [place] [address] Dr. Dipika Jorgensen Genotype ReflexCommentNoAdams County Regional Medical Center on above:Result Comment: Criteria not met, HPV Genotype not performed. Performed at: WBPerformed By: #### [id number] #### [place] [address] Dr[address] Dipika RappMethodology:CommentNoAdams County Regional Medical Center on above: Result Comment: This liquid based ThinPrep(R) pap test was screened with the use of an image guided system. Performed at: WBPerformed By: #### [id number] #### [place] [address] Dr. Dipika RappNote:CommentMarymount Hospital on above:Result Comment: The Pap smear is a screening test designed to aid in the detection of premalignant and malignant conditions of the uterine cervix. It is not a diagnostic procedure and should not be used as the sole means of detecting cervical cancer. Both false-positive and false-negative reports do occur. . Performed at: WBPerformed By: #### [id number] #### [facility] [address] [place] [address] Dr. Dipika RappPerformed by:CommentNoAdams County Regional Medical Center on above: Result Comment: Dayna Zelaya, Rate Marker (ASCP) Performed at: WBPerformed By: #### [id number] #### [facility] [address] [place] [address] Dr. Dipika Rapp reviewed by:[facility] Crille HospitalComment on above:Result Comment: Amada Burger, Supervisory Rate Marker (ASCP) Performed at: WBPerformed By: #### [id number] #### [facility] [address] [place] [address] [address] Dipika RappSpecimen adequacy:[facility] HospitalComeaton rapids medical center on above:Result Comment: Satisfactory for evaluation. Endocervical and/or squamous metaplastic cells (endocervical component) are present. Performed at: WBPerformed By: #### [id number] #### [facility] [address] [place] [address] [address] Dipika RappMG MAMM SCREEN 3D DINAH CADon 95-44-1503XE MAMM SCREEN 3D DINAH CAD Patient: CARISSA SANTOS Exam Date: 06/22/2022 : 1980 Gender:F Ordering : DR FELIZ BENZ . Admission #: [id number] Family : Order #: [id number] CLICK HERE TO VIEW EXAM RADIOLOGY REPORT [...] None Family Cancers None LOCATION: [facility] BREAST COMPOSITION: Scattered areas fibroglandular density. FINDINGS: [...] by: Harvinder Deleon M.D. on 06/22/2022 at 15:52Madison HealthGLYCOHEMOGLOBIN A1Con 07-37-4831BCL RECOMMENDATIONSEE BELOWMadison HealthComeaton rapids medical center on above:Result Comment: ADA RECOMMENDED LIMIT 4.0 - 6.0 ADA THERAPEUTIC TARGET < 7.0 ACTION SUGGESTED > 7.0Performed By: #### A1C #### [facility] [address] [place] [address] [address] Dipika RappGlucose [Mass/Vol]163 mg/dLNoMetroHealth Main Campus Medical CenterComeaton rapids medical center on above:Performed By: #### A1C #### [facility] [address] [place] [address] [address] Dipika RappHbA1c (Bld) [Mass fraction]7.3 %Critically high4.5-6.2The [facility] on above:Performed By: #### A1C #### [facility] [address] [place] [address] [address] Dipika BurrowsC AUTO DIFFon 75-56-8982ZDUN #0.0 103/ulNormal0.0-0.1The [facility] on above:Performed By: #### CBC ####[facility] [address] [place] [address]Dr.Dipika RappBasophils/100 WBC (Bld)0.3 %Normal0.2-2.0The [facility] on above:Performed By: #### CBC ####[facility] [address]km[address] [place] [address]DrElin ChangEO #0.2 103/ulNormal0.0-0.7The [facility] on above:Performed By: #### CBC ####[facility] [address]aiqljs[address] [place] [address]Dr.Dipika ChangEosinophils/100 WBC (Bld)1.7 %Normal 0.9-7.0The [facility] on above:Performed By: #### CBC ####[facility] [address] [place] [address]DrElin Rapp Erythrocyte distribution width (RBC) [Ratio]12.0 %Vtkown84.0-15.0The [facility] Reserve Hospitalment on above:Performed By: #### CBC ####[facility] [address]dfv[address] [place] [address]Dr.Dipika RappHematocrit (Bld) [Volume fraction]43.0 %Pueldz00.0-48.0The [facility] CenterComment on above:Performed By: #### CBC ####[facility] [address]vtis[address] [place] [address]Dr.Dipika RappHemoglobin (Bld) [Mass/Vol]13.6 g/dL Hsvcba70.0-16.0The [facility] CenterComment on above:Performed By: #### CBC ####[facility] [address]isfscknvm86[address] [place], [place] [address]Dr. Vanessalan ChangIG #0.02 10e3/ulNormal0.00-0.03The [facility] CenterComment on above: Performed By: #### CBC ####[facility] Ajoxaknour[address] [place], [place] [address]Dr.Dipika ChangIG %0.2 %Normal0.0-0.5The [facility] CenterComment on above:Performed By: #### CBC ####[facility] Lbuftduodn[address] [place], [place] [address]Dr.Dipika RappLYMPH #3.5 103/ulNormal1.2-3.8The [facility] CenterComment on above:Performed By: #### CBC ####[facility] Uttmsfasdp[address] [place], [place] [address]Dr. Dipika RappLymphocytes/100 WBC (Bld)39.2 %Bueozo28.5-60.0The [facility] Comment on above:Performed By: #### CBC ####[facility] Ndeibgderv[address] [place], [place] [address]Dr.Dipika RappMANUAL DIFF REQNONormalThe [facility] CenterComment on above:Performed By: #### CBC ####[facility] Lnkhxnjszc11[address] [place], [place] [address]Dr.Dipika RappMCH (RBC) [Entitic mass]28.6 tbHduxuj93.7-34.0The [facility] CenterComment on above: Performed By: #### CBC ####[facility] Aedfrhiuii[address] [place], [place] [address]Dr.Dipika CarusoHC (RBC) [Mass/Vol]31.6 g/dLNormal 29.9-35.2The [facility] CenterComment on above:Performed By: #### CBC ####[facility] Tiujgmbdhe78[address] [place], [place] [address]Dr. Dipika RappMCV (RBC) [Entitic vol]90.3 lXCgqtth99.0-99.0The [facility] Comment on above:Performed By: #### CBC ####[facility] Xniajbijwk[address] [place], [place] [address]DrElin RappMONO #0.5 103/ulNormal0.3-0.8 The [facility] CenterComment on above:Performed By: #### CBC ####[facility] Mwavkaorld[address] [place], [place] [address]DrElin Rapp Monocytes/100 WBC (Bld)5.8 %Normal1.7-12.0The [facility] CenterComment on above: Performed By: #### CBC ####[facility] Rujirfuvbd[address] [place], [place] [address]Dr.Dipika RappNEUT #4.7 103/ulNormal1.4-6.5The [facility] CenterComment on above:Performed By: #### CBC ####[facility] Eepnvoowor[address] [place], [place] [address]Dr.Dipika RappNeutrophils/100 WBC (Bld)52.8 %Uxhutm72.0-75.0The [facility] CenterComment on above:Performed By: #### CBC ####[facility] [address]zpfzllf[address] [place], [place] [address]DrElni RappPlatelet mean volume (Bld) [Entitic vol]9.3 fLCritically low 9.5-13.5The [facility] CenterComment on above:Performed By: #### CBC ####[facility] Tiwkthvqbm[address] [place], [place] [address]Dr. Dipika RappPLT219 103/zpVkgdoa987-467Gll [facility] CenterComment on above: Performed By: #### CBC ####[facility] [address]lif[address] [place] [address]Dr.Yilan RappRBC4.76 106/ulNormal4.20-5.40The [facility] CenterComment on above:Performed By: #### CBC ####[facility] [address]qrpe[address] [place] [address]Dr.Yilan RappWBC8.8 103/ul Normal4.0-11.0The [facility] CenterComment on above:Performed By: #### CBC ####[facility] [address] [place] [address]Dr. Dipika RappLIFEBRITE COMMUNITY [facility] OF [facility]LY GLUCOSEon 93-59-8320Ynoswwt [Mass/Vol]51 mg/dL Critically adf75-243Yhg [facility] CenterComment on above:Performed By: #### POCGLUC #### [facility] [address] [place] [address] Dr. Dipika DavisF 14(COMP METB)on 19-14-8622Rjqztqz [Mass/Vol]3.1 g/dL Critically low3.4-5.0The [facility] CenterComment on above:Performed By: #### CMP #### [facility] [address] [place] [address] Dr. Dipika RappAlbumin/Globulin [Mass ratio]0.8 {ratio}NormalThe [facility] CenterComment on above:Performed By: #### CMP #### [facility] [address] [place] [address] Dr. Dipika Cavanaugh [Catalytic activity/Vol]86 U/YXugglu32-341Bnd [facility] CenterComment on above:Performed By: #### CMP #### [facility] [address] [place] [address] Dr. Dipika Zendejas [Catalytic activity/Vol]39 U/JOshmos60-28Sez [facility] CenterComment on above:Performed By: #### CMP #### [facility] [address] [place] [address] Dr. Dipika Nam gap [Moles/Vol]10.8 mmol/LNormalFostoria City Hospital Comment on above:Performed By: #### CMP #### [facility] [address] [address] [address] Dipika RappAST [Catalytic activity/Vol]11 U/LCritically iwg81-22Hvk [facility] CenterComment on above:Performed By: #### CMP #### [facility] [address] [address] [address] Dipika RappBilirubin [Mass/Vol]0.1 mg/dLCritically low0.2-1.0The [facility] CenterComment on above:Performed By: #### CMP #### [facility] [address] [place] [address] Dr. Dipika RappCalcium [Mass/Vol]9.0 mg/dLNormal8.5-10.1[facility] Comment on above:Performed By: #### CMP #### [facility] [address] [address] [address] Dipika RappChloride [Moles/Vol]104 mmol/RNsolpm69-785Jpi [facility] Comment on above:Performed By: #### CMP #### [facility] [address] [place] [address] Dr. Dipika RappCO2 [Moles/Vol]29.4 mmol/LJdsfmh34.0-32.0[facility] Comment on above:Performed By: #### CMP #### [facility] [address] [place] [address] Dr. Dipika RappCreatinine [Mass/Vol]0.67 mg/dLNormal0.55-1.02The [facility] CenterComment on above:Performed By: #### CMP #### [facility] [address] [place] [address] Dr. Dipika TongGFR-AF LITHUANIAN>60Normal>=60The [facility] CenterComment on above:Performed By: #### CMP #### [facility] [address] [address] [address] Yilan ChangEGFR-NON AF LITHUANIAN>60Normal>=60The [facility] CenterComment on above:Performed By: #### CMP #### [facility] [address] [address] [address] Dipika RappGlobulin (S) [Mass/Vol]3.9 g/dLNormCleveland Clinic Avon HospitalComment on above:Performed By: #### CMP #### [facility] [address] [address] [address] Dipika RappGlucose [Mass/Vol]142 mg/dLCritically fszj15-846Esn [facility] CenterComment on above:Performed By: #### CMP #### [facility] [address] [place] [address] Dr. Dipika RappPotassium [Moles/Vol]4.2 mmol/LNormal3.5-5.1The [facility] Center Comment on above:Performed By: #### CMP #### [facility] [address] [place] [address] Dr. Dipika RappProtein [Mass/Vol]7.0 g/dLNormal6.4-8.2The [facility] Comment on above:Performed By: #### CMP #### [facility] [address] [place] [address] Dr. Dipika RappSodium [Moles/Vol]140 mmol/MDdqlsg383-063Bzs [facility] Comment on above:Performed By: #### CMP #### [facility] [address] [place] [address] Dr. Dipika RappUrea nitrogen [Mass/Vol]22.0 mg/dLCritically high7.0-18.0[facility] CenterComment on above:Performed By: #### CMP #### [facility] [address] [place] [address] Dr. Dipika RappUrea nitrogen/Creatinine [Mass ratio]32.8 mg/mgNoMetroHealth Main Campus Medical CenterComment on above:Performed By: #### CMP #### [facility] [address] [place] [address] Dr. Dipika Kaur,Aerobe/Anaerobeon [id number],Aerobe/AnaerobeSpecimen Description .ULCER RT ARM Special Requests NOT REPORTED Direct Exam FEW NEUTROPHILS NO BACTERIA SEEN Culture NO GROWTH 5 DAYS Report Status FINAL 10/06/2021[facility]iance [facility] HospitalComment on above:Performed By: #### UA, UMICAO #### [employer] [facility] [facility] [address] [place] [address] Dispatcher Bus And Trolley: Quan Wooten to Pathologiston [id number] to PathologistSEE REPORTProMedica Defiance Regional HospitalComment on above: Result Comment: REVIEWING PATHOLOGIST: ELECTRONICALLY SIGNED. HORACIO VILA M.D.Performed By: #### PTT, FIB, PT, LYTE, DBILI, TBIL, RETCT, CBC, LD, HAPT, PATH ####[employer] [address] [place] [address] Lab Director: Drew Wooten Metabolic Panelon [id number] gap [Moles/Vol]14 mmol/L9 - 17 mmol/LMercy HealthCalcium [Mass/Vol]8.3 mg/dLLow8.6 - 10.4 mg/dLMercy HealthChloride [Moles/Vol]111 mmol/LHigh98 - 107 mmol/LMercy HealthCO2 [Moles/Vol]19 mmol/LLow20 - 31 mmol/L Merc HealthCreatinine [Mass/Vol]1.31 mg/dLHigh0.50 - 0.90 mg/dLMercy HealthGFR Qrtovvqq41 mL/minLow>60Mercy HealthGFR Non- Glyuszrl74 mL/minLow >60Mercy HealthGFR/1.73 sq M.predicted MDRD (S/P/Bld) [Vol rate/Area][facility], IncComment on above:Average GFR for 40-49 years old: 99 mL/min/1.73sq m Chronic Kidney Disease: <60 mL/min/1.73sq m Kidney failure: <15 mL/min/1.73sq m eGFR calculated using average adult body mass. Additional eGFR calculator available at: http://www.[employer].Sembraire/multiple_crcl_2012.htm GFR/1.73 sq M.predicted MDRD (S/P/Bld) [Vol rate/Area]NOT REPORTEDSelect [facility], Inc Glucose [Mass/Vol]105 mg/nRVfwn23 - 99 mg/dLSelect [facility]ty [facility], IncInterpretation and review of laboratory resultsAbnormalSelect [facility] Special[facility], IncPotassium [Moles/Vol]3.7 mmol/L 3.7 - 5.3 mmol/LMercy HealthSodium [Moles/Vol]144 mmol/L135 - 144 mmol/LMercy HealthUrea nitrogen (BldV) [Mass/Vol]19 mg/dL6 - 20 mg/dLSelect [facility] Specialty [facility], IncUrea nitrogen/Creatinine (Bld) [Mass ratio]NOT REPORTEDAurora Health Care Bay Area Medical CenterBasic Metabolic Profon 10-03-2021(cont.)NormalUc West Chester HospitalComment on above:Result Comment: Average GFR for 40-49 years old: 99 mL/min/1.73sq m Chronic Kidney Disease: <60 mL/min/1.73sq m Kidney failure: <15 mL/min/1.73sq m eGFR calculated using average adult body mass. Additional eGFR calculator available at: http://www.[employer].Sembraire/multiple_crcl_2011.htmPerformed By: ###PRATIBHA FARIAS #### [facility] [address] [place] [address] [id number] Dis[employer]: Brandan Ugalde MDAnion gap [Moles/Vol]14 mmol/LNormal9-17[facility] HospitalComment on above:Performed By: ###PRATIBHA FARIAS #### [facility] [place], [place] [phone] Dispatcher [employer] Trolley: DANIELLE Wootenalcium [Mass/Vol]8.3 mg/dLLow8.6-10.4[facility] HospitalComment on above:Performed By: ###PRATIBHA FARIAS #### [facility] [place], [place] [phone] Dispatcher [employer]ley: DANIELLE Wootenhloride [Moles/Vol]111 mmol/IMzyf22-797IvufiUc West Chester HospitalComment on above:Performed By: #### GERMANIA UMICAO #### [facility] [address] [place] [address] Dispatcher [employer]: Brandan Ugalde MDCO2 [Moles/Vol]19 mmol/EEkk71-61WoyteUc West Chester HospitalComment on above:Performed By: #### GERMANIA UMICAO #### [facility] [address] [place] [address] Dispatcher [employer]: Brandan Ugalde MDCreatinine [Mass/Vol]1.31 mg/dLHigh0.50-0.90 [facility] HospitalComment on above:Performed By: #### COLLEEN SOLOICAO #### [address] [address] Dispatcher [employer]: Brandan Ugalde MDGFR, Amer54 mL/minLow>60Uc [facility] Chester HospitalComment on above:Performed By: #### COLLEEN SOLOICAO #### [address] [address] Dispatcher [employer]: Brandan Ugalde MDGFR,non Amer45 mL/minLow>60[facility] HospitalComment on above:Performed By: #### GERMANIA UMICAO #### [address] [address] Dispatcher [employer]: Brandan Ugalde MDGlucose [Mass/Vol]105 mg/bAZnck42-47YurtcSt. Joseph HospitalComment on above:Performed By: #### GERMANIA UMICAO #### [facility] [address] [place] [address] Dispatcher [employer]: Brandan Ugalde MDPotassium [Moles/Vol]3.7 mmol/LNormal3.7-5.3 [facility] HospitalComment on above:Performed By: #### GERMANIA UMICAO #### [facility] [address] [place] [address] Dispatcher [employer]: JACOB Wootenodium [Moles/Vol]144 mmol/AZzjppv714-650OgumcUc West Chester HospitalComment on above:Performed By: #### GERMANIA, UMICAO #### [facility] [address] [place] [address] Dispatcher [employer]: Brandan Ugalde MDUrea nitrogen [Mass/Vol]19 mg/dLNormal6-20[facility] HospitalComment on above:Performed By: #### GERMANIA, UMICAO #### [facility] [address] [place] [address] Dispatcher [employer]: Brandan Ugalde MDBUN/CRE RatioNOT REPORTEDNormal9-20[facility] HospitalComment on above:Performed By: #### GERMANIA UMVESNA #### [facility] [address] [place] [address] Dispatcher [employer]: JACOB Wootentaging:NOT REPORTEDNormalUc West Chester HospitalComment on above:Performed By: #### GERMANIA, UMICAMuriel #### [facility] [address] [place] [address] Dispatcher [employer] And [employer]ley: Brandan Ugalde [facility] auto differentialon [id number] Eos # 0.22Mercy HealthAbsolute Immature Granulocyte0.00Mercy HealthAbsolute Lymph # 2.04Mercy HealthAbsolute Potter #0.72Mercy HealthBasophils (Bld) [#/Vol]0.00 10*3/uLMercy HealthBasophils/100 WBC (Bld)0 %0 - 2 %Mercy HealthDifferential TypeNOT REPORTEDMercy HealthEosinophils/100 WBC (Bld)4 %1 - 4 %[facility] Hematocrit (Bld) [Volume fraction]34.4 %Low36.3 - 47.1 %[facility]ercNew[facility] Hemoglobin.gastrointestinal spec 1 Ql (Stl)11.5 g/dLLow11.9 - 15.1 g/dLSelect Medical Specialty Hospital [facility], IncImmature granulocytes/100 WBC (Bld)0 %0[facility], IncInterpretation and review of laboratory resultsAbnormalSelect Medical Specialty Hospital [facility], IncLymphocytes/100 WBC (Bld)37 %24 - 44 %[facility] Medical CenterH (RBC) [Entitic mass]28.6 pg25.2 - 33.5 pgFairfield Medical CenterHC (RBC) [Mass/Vol]33.4 g/dL28.4 - 34.8 g/dLFairfield Medical CenterV (RBC) [Entitic vol]85.6 fL82.6 - 102.9 fLSelect Medical Specialty Hospital - [facility], IncMonocytes/100 WBC (Bld)13 %High1 - 7 %[facility] Morphology Dontrell (Bld) [Interp]NormalSelect Medical Specialty Hospital [facility], IncNRBC Automated0.00.0 per 100 WBC [facility], IncPlatelet distribution width (Bld) [Ratio]13.5 %11.8 - 14.4 %[facility], IncPlatelet EstimateNOT REPORTEDSelect Medical Specialty [facility], IncPlatelet mean volume (Bld) [Entitic vol]NOT REPORTED8.1 - 13.5 fLSelect Medical Specialty Hospital - Board[facility], IncPlatelets (Bld) [#/Vol]See Reflexed IPF ResultSelect Medical Specialty Hospital - [facility], IncRBC (Bld) [#/Vol]4.02 10*6/uL3.95 - 5.11 m/uL [facility], IncRBC (Bld) [#/Vol]NOT REPORTEDSelect Medical Specialty [facility], IncSegmented neutrophils/100 WBC (Bld)46 %36 - 66 %[facility], IncSegs Absolute2.52[facility], IncWBC (Bld) [#/Vol] 5.5 10*3/uLSelect Medical Specialty Hospital - [facility], IncWBC (Bld) [#/Vol]NOT REPORTEDAurora Health Care Bay Area Medical CenterCBC with Diffon [id number]. Basophil0.00 k/uLNormal0.0-0.2MSt. Joseph HospitalComment on above:Performed By: #### PRATIBHA SOLO #### [facility] [address] [place], [place] [phone] Dispatcher [employer]: Karma Wooten.Imm.Granulocyte0.00 k/uLNormal0.00-0.30[facility] HospitalComment on above:Performed By: #### PRATIBHA SOLO #### [facility] [address] [place] [address] Dispatcher [employer]: Karma Wooten.Neutrophil (Seg)2.52 k/uLNormal1.8-7.7[facility] HospitalComment on above:Performed By: #### PRATIBHA SOLO #### [facility] [address] [place] [address] Dispatcher [employer]: Brandan Ugalde MDBasophils/100 WBC (Bld)0 %Normal0-2MSt. Joseph HospitalComment on above:Performed By: #### PRATIBHA SOLO #### [address] [address] Dispatcher [employer]: Brandan Ugalde MDEosinophils (Bld) [#/Vol]0.22 10*3/uLNormal 0.0-0.4[facility] HospitalComment on above:Performed By: #### PRATIBHA SOLO #### [address] [address] Dispatcher [employer]: Brandan Ugalde MDEosinophils/100 WBC (Bld)4 %Normal1-4[facility] HospitalComment on above:Performed By: #### PRATIBHA SOLO #### [address] [address] Dispatcher [employer]: Brandan Ugalde MDImmature granulocytes/100 WBC (Bld)0 %Normal0 [facility] HospitalComment on above:Performed By: #### PRATIBHA SOLO #### [address] [address] Dispatcher [employer]: Brandan Ugalde MDLymphocytes (Bld) [#/Vol]2.04 10*3/uLNormal 1.0-4.8[facility] HospitalComment on above:Performed By: #### GERMANIA UMICAO #### [facility] [address] [place] [address] Dispatcher [employer]: Brandan Ugalde MDLymphocytes/100 WBC (Bld)37 %Wwiikp80-65BylmeUc West Chester HospitalComment on above:Performed By: #### GERMANIA UMICAO #### [facility] [address] [place] [address] Dispatcher [employer]: Brandan Ugalde MDMonocytes (Bld) [#/Vol]0.72 10*3/uLNormal0.1-0.8 [facility] HospitalComment on above:Performed By: #### GERMANIA UMICAO #### [facility] [address] [place] [address] Dispatcher [employer]: GAVIN Wootenonocytes/100 WBC (Bld)13 %High1-7[facility] HospitalComment on above:Performed By: #### GERMANIA UMICAO #### [address] [address] Dispatcher [employer]: GAVIN Wootenorphology Dontrell (Bld) [Interp]NormalNormalUc West Chester HospitalComment on above:Performed By: #### GERMANIA UMICAO #### [address] [address] Dispatcher [employer]: Brandan Ugalde MDNeutrophil (Seg)46 %Ppmwfv17-67YnhbeUc West Chester HospitalComment on above:Performed By: #### GERMANIA UMICAO #### [facility] [address] [place] [address] Dispatcher [employer]: Brandan Ugalde MDErythrocyte distribution width (RBC) [Ratio]13.5 %Bkrtxl77.8-14.4[facility] HospitalComment on above:Performed By: #### UA, UMICAO #### [address] [address] Dispatcher [employer]: Brandan Ugalde MDHematocrit (Bld) [Volume fraction]34.4 %Low 36.3-47.1MSt. Joseph HospitalComment on above:Performed By: #### PRATIBHA SOLO #### [address] [address] Dispatcher [employer]: Brandan Ugalde MDHemoglobin (Bld) [Mass/Vol]11.5 g/dLLow11.9-15.1 [facility] HospitalComment on above:Performed By: #### PRATIBHA SOLO #### [address] [address] Dispatcher [employer]: GAVIN WootenCH (RBC) [Entitic mass]28.6 faFsscbz17.2-33.5 [facility] HospitalComment on above:Performed By: #### PRATIBHA SOLO #### [address] [address] Dispatcher [employer]: GAVIN WootenCHC (RBC) [Mass/Vol]33.4 g/yKPghmsd07.4-34.8 [facility] HospitalComment on above:Performed By: #### PRATIBHA SOLO #### [address] [address] Dispatcher [employer]: GVAIN WootenCV (RBC) [Entitic vol]85.6 tWGgkfjk47.6-102.9 [facility] HospitalComment on above:Performed By: #### PRATIBHA SOLO #### [address] [address] Dispatcher [employer]: Brandan Ugalde MDNRBC Automated0.0 per 100 WBCNormal0.0[facility] HospitalComment on above:Performed By: #### UA, UMICAO #### [facility] [address] [place] [address] Dispatcher [employer]: Isabell Wooten CountSee Reflexed IPF ResultNormal 138-453U[facility] HospitalComment on above:Performed By: #### UA, UMICAO #### [facility] [address] [place] [address] Dispatcher [employer]: DENG Wooten (d) [#/Vol]4.02 10*6/uLNormal3.95-5.11 [facility] HospitalComment on above:Performed By: #### GERMANIA, UMICAO #### [facility] [address] [place] [address] Dispatcher [employer]: VALENTÍN Wooten ([facility]) [#/Vol]5.5 10*3/uLNormal3.5-11.3MSt. Joseph HospitalComment on above:Performed By: #### GERMANIA, UMICAO #### [facility] [address] [place] [address] Dispatcher [employer]: Laxmi Wooten PerformedNOT REPORTEDNormalUc West Chester HospitalComment on above:Performed By: #### UA, UMICAO #### [facility] [address] [place] [address] Dispatcher [employer]: GAVIN WootenPVNOT REPORTEDNormal8.1-13.5[facility] HospitalComment on above:Performed By: #### UA, UMICAO #### [facility] [address] [place] [address] Dispatcher [employer]: Isabell Wooten CommentNOT REPORTEDNormalUc West Chester HospitalComment on above:Performed By: #### UA, UMICAO #### [facility] [address] [place] [address] Dispatcher [employer]: BAKARI Wooten morphology finding Nom (Bld)NOT REPORTED NormalUc West Chester HospitalComment on above:Performed By: #### PRATIBHA SOLO #### [facility] [address] [place] [address] [phone] Dispatcher [employer]: MISTY Wooten MorphologyNOT REPORTEDNoWooster Community HospitalComment on above:Performed By: #### GERMANIA, PRATIBHA #### [facility] [address] [place] [address] [phone] Dispatcher Bus [employer]: Brandan Ugalde [facility] STROUDult, Bloodon [id number], BloodSpecimen Description .BLOOD Special Requests L HAND 2ML Culture NO GROWTH 5 DAYS Report Status FINAL 10/03/2021NoWooster Community HospitalComment on above:Performed By: #### PRATIBHA SOLO #### [facility] [address] [place] [address] Dispatcher [employer]: Brandan Ugalde [facility] STROUDkaylene,Bloodon [id number],BloodSpecimen Description .BLOOD Special Requests NOT REPORTED Culture NO GROWTH 5 DAYS Report Status FINAL 10/03/2021NoWooster Community HospitalComment on above:Performed By: #### GERMANIA, PRATIBHA #### [facility] HospitalHotelements [address] [place] [address] Dispatcher [employer]: DANIELLE Wootenulture, Blood 1on [id number] identified Cx Nom (Unsp spec)NO GROWTH 5 DAYSMercy HealthSpecial RequestsNOT REPORTEDMercy HealthSpecimen Description.BLOODKettering Health – So[facility] Medical Center HealthCulture, Blood 2on [id number] identified Cx Nom (Unsp spec)NO GROWTH 5 DAYSMiami Valley Hospital Health Special RequestsL HAND 2MLMercy HealthSpecimen Description.BLOODSauk Prairie Memorial HospitalImmature Platelet Fractionon [id number], Fluorescence Platelet clumps present, count appears adequate.[facility], IncComment on above: ORDERED BY LABPlatelet, Immature FractionNOT REPORTED1.1 - 10.3 %[facility]irie Memorial HospitalPLT, Immature Fract.on [id number], Fluoresc.Platelet clumps present, count appears adequate.Wlvcst110-146LqcueUc West Chester Hospital Comment on above:Result Comment: ORDERED BY LABPerformed By: #### PRATIBHA SOLO #### [facility] [address] [place], [place] [phone] Dispatcher Bus [employer]ley: DANIEL WootenLT, Immature Fract.NOT REPORTEDNormal1.1-10.3 [facility] HospitalComment on above:Performed By: #### PRATIBHA SOLO #### [facility] [address] [place] [address] Dispatcher Bus [employer]ley: YARI Wooten Glucose Fingerstickon 20-01-3241Opmuizv [Mass/Vol]236 mg/yTGjaa51 - 105 mg/dLMiami Valley Hospital HealthInterpretation and review of laboratory resultsAbnormalAurora Health Care Bay Area Medical CenterGlucose [Mass/Vol]89 mg/dL65 - 105 mg/dLAurora Health Care Bay Area Medical CenterPhosphoruson [id number] [Mass/Vol]4.2 mg/dL2.6 - 4.5 mg/dLAurora Health Care Bay Area Medical CenterPhosphorus, Inorg.on 10-03-2021 Phosphorus, Inorg.4.2 mg/dLNormal2.6-4.5[facility] HospitalComment on above:Performed By: #### PRATIBHA SOLO #### [facility] [address] [place] [address] Dispatcher Bus [employer]: Brandan Ugalde [facility] DIFF TOXIN/ANTIGENon 10-02-2021 DIFF AG + TOXINNegativeNEGPremier HealthComment on above:No C. difficile antigen and Toxin Detected.Specimen Description.FECESMayo Clinic Health System– Oakridge diff Ag + Toxinon 10-02-2021 diff Ag + ToxinNegativeNormalNEGUc West Chester HospitalComment on above:Result Comment: No C. difficile antigen and Toxin Detected.Performed By: #### PRATIBHA SOLO #### [facility] HospitalNe[facility] [address] [place] [address] Dispatcher Bus And Trolley: Brandan Ugalde [facility] auto differentialon [id number] Eos # 0.11MerMultiCare Tacoma General HospitalAbsolute Immature Granulocyte0.08Mer HealthAbsolute Lymph # 1.84Mer HealthAbsolute Potter #0.59Mer HealthBasophils (Bld) [#/Vol]0.03 10*3/uLMer HealthBasophils/100 WBC (Bld)1 %0 - 2 %[facility], IncDifferential TypeNOT REPORTEDSelect [facility] Special[facility], IncEosinophils/100 WBC (Bld)2 %1 - 4 %[facility] Hematocrit (Bld) [Volume fraction]31.2 %Low36.3 - 47.1 %[facility] Hemoglobin.gastrointestinal spec 1 Ql (Stl)10.4 g/dLLow11.9 - 15.1 g/dLSelect Medical Specialty Hospital - [facility], IncImmature granulocytes/100 WBC (Bld)2 %Ncrz9TaqjzSelect Medical Specialty Hospital [facility], IncInterpretation and review of laboratory resultsAbnormalSelect Medical Specialty Hospital - [facility], IncLymphocytes/100 WBC (Bld)35 %24 - 43 %[facility] Medical CenterH (RBC) [Entitic mass]28.7 pg25.2 - 33.5 pgFairfield Medical CenterHC (RBC) [Mass/Vol]33.3 g/dL28.4 - 34.8 g/dLFairfield Medical CenterV (RBC) [Entitic vol]86.2 fL82.6 - 102.9 fLSelect Medical Specialty Hospital - [facility], IncMonocytes/100 WBC (Bld)11 %3 - 12 %[facility], IncNRBC Automated0.00.0 per 100 WBCSelect Medical Specialty Hospital - Board[facility], IncPlatelet distribution width (Bld) [Ratio] 13.7 %11.8 - 14.4 %[facility], IncPlatelet EstimateNOT REPORTEDSelect Medical Specialty [facility], IncPlatelet mean volume (Bld) [Entitic vol]9.0 fL8.1 - 13.5 fLMiami Valley Hospital HealthPlatelets (Bld) [#/Vol]92 10*3/uLLowSelect Medical Specialty Hospital - [facility], IncRBC (Bld) [#/Vol]3.62 10*6/uLLow3.95 - 5.11 m/uL [facility], IncRBC (Bld) [#/Vol]NOT REPORTEDSelect Medical Specialty [facility], IncSegmented neutrophils/100 WBC (Bld)49 %36 - 65 %[facility], IncSegs Absolute2.58[facility], IncWBC (Bld) [#/Vol] 5.2 10*3/uLSelect Medical Specialty Hospital - [facility], IncWBC (Bld) [#/Vol]NOT REPORTEDAurora Health Care Bay Area Medical CenterCB with Diffon [id number]. Basophil0.03 k/uLNormal0.00-0.20[facility] HospitalComment on above:Performed By: #### PRATIBHA SOLO #### [facility] [address] [place] [address] Dispatcher [employer]: MDAbs. SugarImm.Granulocyte0.08 k/uLNormal0.00-0.30[facility] HospitalComment on above:Performed By: #### PRATIBHA SOLO #### [facility] [address] [place] [address] Dispatcher [employer]: MDAbs. SugarNeutrophil (Seg)2.58 k/uLNormal1.50-8.10 [facility] HospitalComment on above:Performed By: #### GERMANIA UMICAO #### [facility] [address] [place] [address] Dispatcher [employer]: Brandan Ugalde MDBasophils/100 WBC (Bld)1 %Normal0-2MercTri-City Medical CenterComment on above:Performed By: #### GERMANIA UMICAO #### [facility] [address] [place] [address] Dispatcher [employer]: Brandan Ugalde MDEosinophils (Bld) [#/Vol]0.11 10*3/uLNormal 0.00-0.44[facility] HospitalComment on above:Performed By: #### GERMANIA UMICAO #### [facility] [address] [place] [address] Dispatcher [employer]: Brandan Ugalde MDEosinophils/100 WBC (Bld)2 %Normal1-4[facility] HospitalComment on above:Performed By: #### GERMANIA, UMICAO #### [facility] [address] [place] [address] Dispatcher [employer]: Brandan Ugalde MDImmature granulocytes/100 WBC (Bld)2 %Nucf0WdkjcHemet Global Medical CenterComment on above:Performed By: #### GERMANIA, UMICAO #### [facility] [address] [place] [address] Dispatcher [employer]: Brandan Ugalde MDLymphocytes (Bld) [#/Vol]1.84 10*3/uLNormal 1.10-3.70[facility] HospitalComment on above:Performed By: #### GERMANIA UMICAO #### [facility] [address] [place] [address] Dispatcher [employer]: German Wootenmphocytes/100 WBC (Bld)35 %Smotbx46-18RaqqaUc West Chester HospitalComment on above:Performed By: #### GERMANIA, UMICAO #### [facility] [address] [place] [address] Dispatcher [employer]: GAVIN Wootenonocytes (Bld) [#/Vol]0.59 10*3/uLNormal 0.10-1.20[facility] HospitalComment on above:Performed By: #### GERMANIA, UMICAO #### [facility] [address] [place] [address] Dispatcher [employer]: GAVIN Wootenonocytes/100 WBC (Bld)11 %Normal3-12[facility] HospitalComment on above:Performed By: #### GERMANIA, UMICAO #### [facility] [address] [place] [address] Dispatcher [employer]: Brandan Madoff, MDNeutrophil (Seg)49 %Zfoodx41-99DimbvUc West Chester HospitalComment on above:Performed By: #### PRATIBHA SOLO #### [facility] [address] [place] [address] Dispatcher [employer]: Brandan Ugalde MDErythrocyte distribution width (RBC) [Ratio]13.7 %Wmgydj77.8-14.4U[facility] HospitalComment on above:Performed By: #### PRATIBHA SOLO #### [facility] [address] [place] [address] Dispatcher [employer]: Brandan Ugalde MDHematocrit (Bld) [Volume fraction]31.2 %Low 36.3-47.1MSt. Joseph HospitalComment on above:Performed By: #### PRATIBHA SOLO #### [address] [address] Dispatcher [employer]: Brandan Ugalde MDHemoglobin (Bld) [Mass/Vol]10.4 g/dLLow11.9-15.1 [facility] HospitalComment on above:Performed By: #### PRATIBHA SOLO #### [address] [address] Dispatcher [employer]: GAVIN WootenCH (RBC) [Entitic mass]28.7 lbGaaywd86.2-33.5 [facility] HospitalComment on above:Performed By: #### COLLEEN SOLOICAO #### [facility] [address] [place] [address] Dispatcher [employer]: GAVIN WootenCHC (RBC) [Mass/Vol]33.3 g/zLCiqqiw56.4-34.8 [facility] HospitalComment on above:Performed By: #### COLLEEN SOLOICAMuriel #### [facility] [address] [place] [address] Dispatcher Bus And Trol[employer]: BERTA Wooten (RBC) [Entitic vol]86.2 kKLcazpp07.6-102.9 [facility] HospitalComment on above:Performed By: #### GERMANIA, UMICAO #### [facility] [address] [place] [address] Dispatcher [employer] T[employer]: GOLDIE Wooten Automated0.0 per 100 WBCNormal0.0[facility] HospitalComment on above:Performed By: #### GERMANIA, UMICAO #### [facility] [address] [place] [address] Dispatcher [employer] T[employer]: Isabell Wooten mean volume (Bld) [Entitic vol]9.0 fL Normal8.1-13.5[facility] HospitalComment on above:Performed By: #### GERMANIA UMICAO #### [address] [address] Dispatcher [employer]: Robert Wooten (Bld) [#/Vol]92 10*3/nVJps864-142NikqcUc West Chester HospitalComment on above:Performed By: #### GERMANIA UMICAO #### [address] [address] Dispatcher [employer] And Trol[employer]: DENG WootenBC (Bld) [#/Vol]3.62 10*6/uLLow3.95-5.11[facility] HospitalComment on above:Performed By: #### GERMANIA, UMICAO #### [facility] [address] [place] [address] Dispatcher [employer] T[employer]: MISTY Wooten (Bld) [#/Vol]5.2 10*3/uLNormal3.5-11.3MSt. Joseph HospitalComment on above:Performed By: #### GERMANIA, UMICAO #### [facility] [address] [place] [address] Dispatcher [employer]: Brandan Ugalde MDAutmuriel Diff PerformedNOT REPORTEDNormalUc West Chester HospitalComment on above:Performed By: #### GERMANIA, UMJOSEO #### [facility] [address] [place] [address] Dispatcher Bus And Trolley: Sadaf Wootentelet CommentNOT REPORTEDNormMercy Health Fairfield HospitalComment on above:Performed By: #### GERMANIA, UMICAO #### [facility] [address] [place] [address] Dispatcher Bus And Trolley: BAKARI Wooten morphology finding Nom (Bld)NOT REPORTED [facility] HospitalComment on above:Performed By: #### GERMANIA, UMVESNA #### [facility] [address] [place] [address] Dispatcher Bus And Trolley: MISTY Wooten MorphologyNOT REPORTEDProMedica Defiance Regional HospitalComment on above:Performed By: #### GERMANIA, UMICAO #### [facility] [address] [place] [address] Dispatcher Bus And Trolley: Eddy Wootenrointestinal Panel, [facility] 10-02-2021 Campylobacter PCRNEGATIVE: No Campylobacter spp. (jejuni or coli) DNA Detected NEGATIVE: No Campylobacter spp. (jejuni or coli) DNA DetecteMerc HealthE Coli Enterotoxigenic PCRNEGATIVE: No Enterotoxigenic E. coli (ETEC) Heat-labile and heat-stable (LT/ST) DNA DetectedNEGATIVE: No Enterotoxigenic E. coli (ETEC) Heat-labile andMer HealthPlesiomonas Shigelloides PCRNegativeNEGATIVE: No Plesionomas shigelloides DNA DetectedMer HealthSalmonella PCRNegativeNEGATIVE: No Salmonella spp. DNA DetectedMer HealthShigatoxin Gene PCRNegativeNEGATIVE: No Shiga toxin-producing gene(s) DetectedMerMultiCare Tacoma General HospitalShigella Sp PCRNegative NEGATIVE: No Shigella spp. / EIEC DNA DetectedMer HealthSpecimen Description .FECESMercy HealthVibrio PCRNEGATIVE: No Vibrio (V. vulnificus, V, parahaemolyticus and V. cholerae) DNA DetectedNEGATIVE: No Vibrio (V. vulnificus, V, parahaemolyticus andMetroHealth Cleveland Heights Medical Centerersinia Enterocolitica PCR NegativeNEGATIVE: No Yersinia enterocolitica DNA DetectedKettering Health – Soin [facility] Center HealthHaptoglobinon 70-89-0610Vstjimxhqgv537 mg/lNSrat15-174LezvcUc West Chester HospitalComment on above:Performed By: #### PTT, FIB, PT, LYTE, DBILI, TBIL, RETCT, CBC, LD, HAPT, PATH ####[facility] [address] [place] [address] [facility] Director: Brandan Ugalde MDHaptoglobin346 mg/oMWwag18 - 200 mg/dLMiami Valley Hospital HealthInterpretation and review of laboratory resultsAbnoWestern Wisconsin HealthPO Glucose Fingerstickon 89-28-7139Qvqakpb [Mass/Vol] 200 mg/eUNkoj61 - 105 mg/dLSelect [facility]ty [facility], IncInterpretation and review of laboratory resultsAbnoCleveland Clinic [facility]uclid Hospital HealthGlucose [Mass/Vol]131 mg/dKOidn97 - 105 mg/dLSelect [facility]ty [facility], IncInterpretation and review of laboratory resultsAbnoCleveland Clinic Euclid Hospital HealthGlucose [Mass/Vol]122 mg/aZDuze30 - 105 mg/dLMiami Valley Hospital Health Interpretation and review of laboratory resultsAbnoMendota Mental Health Institute Glucose [Mass/Vol]119 mg/xCZqqu12 - 105 mg/dLSelect [facility], IncInterpretation and review of laboratory resultsAbnoCleveland Clinic [facility]uclid Hospital HealthGlucose [Mass/Vol] 135 mg/yBMimt37 - 105 mg/dLSelect [facility]ty [facility], IncInterpretation and review of laboratory resultsAbnormWayne HealthCare Main Campus HealthPhosphoruson 00-98-7137Hkzunxowr [Mass/Vol]3.0 mg/dL2.6 - 4.5 mg/dLKettering Health – Soin [facility] Center HealthPhosphorus, Inorg.on 69-16-5377Zfusxixcyv, Inorg.3.0 mg/dLNormal2.6-4.5[facility] HospitalComment on above:Performed By: #### UA, UMICAO #### [facility] HospitalHotelements [address] [place] [address] Dispatcher Bus And Trolley: Brandan Ugalde, MDRENAL FUNCTION PANELon 09-44-4835Qgnkeoh [Mass/Vol]2.5 g/dLLow3.5 - 5.2 g/dLMercy HealthAnion gap [Moles/Vol]9 mmol/L9 - 17 mmol/LMercy HealthCalcium [Mass/Vol]8.7 mg/dL8.6 - 10.4 mg/dLMercy Health Chloride [Moles/Vol]109 mmol/LHigh98 - 107 mmol/LMercy HealthCO2 [Moles/Vol]23 mmol/L20 - 31 mmol/LMercy HealthCreatinine [Mass/Vol]1.46 mg/dLHigh0.50 - 0.90 mg/dLMercy HealthGFR Xxoamhlm49 mL/minLow>60Mercy HealthGFR Non- Ldzcpxft74 mL/minLow>60Mercy HealthGFR/1.73 sq M.predicted MDRD (S/P/Bld) [Vol rate/Area][facility] Premium StoreComment on above:Average GFR for 40-49 years old: 99 mL/min/1.73sq m Chronic Kidney Disease: <60 mL/min/1.73sq m Kidney failure: <15 mL/min/1.73sq m eGFR calculated using average adult body mass. Additional eGFR calculator available at: http://www.[employer].Sembraire/multiple_crcl_2012.htm GFR/1.73 sq M.predicted MDRD (S/P/Bld) [Vol rate/Area]NOT REPORTEDMercy Health Glucose [Mass/Vol]109 mg/mSKisc47 - 99 mg/dLMercy HealthInterpretation and review of laboratory resultsAbnormalMercy HealthPhosphate [Mass/Vol]3.2 mg/dL2.6 - 4.5 mg/dLMercy HealthPotassium [Moles/Vol]3.6 mmol/LLow3.7 - 5.3 mmol/LMercy HealthSodium [Moles/Vol]141 mmol/L135 - 144 mmol/LMercy HealthUrea nitrogen (BldV) [Mass/Vol]22 mg/dLHigh6 - 20 mg/dLSelect Medical Specialty Hospital [facility], IncUrea nitrogen/Creatinine (Bld) [Mass ratio]NOT REPORTEDAurora Health Care Bay Area Medical CenterRenal Function Panelon 10-02-2021(cont.)NormalUc West Chester HospitalComment on above:Result Comment: Average GFR for 40-49 years old: 99 mL/min/1.73sq m Chronic Kidney Disease: <60 mL/min/1.73sq m Kidney failure: <15 mL/min/1.73sq m eGFR calculated using average adult body mass. Additional eGFR calculator available at: http://www.[employer]/multiple_crcl_2012.htmPerformed By: #### PRATIBHA SOLO #### [facility] [address] [place] [address] Dispatcher [employer]: Brandan Ugalde MDAlbumin [Mass/Vol]2.5 g/dLLow3.5-5.2MSt. Joseph HospitalComment on above:Performed By: #### PRATIBHA SOLO #### [facility] [address] [place] [address] Dispatcher Bus [employer] T[employer]: Brandan Ugalde MDAnion gap [Moles/Vol]9 mmol/LNormal9-17[facility] HospitalComment on above:Performed By: #### COLLEEN SOLOICAO #### [facility] [address] [place] [address] Dispatcher [employer] Trolley: Brandan Ugalde MDCalcium [Mass/Vol]8.7 mg/dLNormal8.6-10.4[facility] HospitalComment on above:Performed By: #### COLLEEN SOLOICAO #### [facility] [address] [place] [address] Dispatcher Bus [employer] Trolley: Brandan Ugalde MDChloride [Moles/Vol]109 mmol/QOxio69-792CrhbpUc West Chester HospitalComment on above:Performed By: #### GERMANIA UMICAO #### [facility] [address] [place] [address] Dispatcher [employer] T[employer]ley: Brandan Ugalde MDCO2 [Moles/Vol]23 mmol/RFgtfbe91-03CftroUc West Chester HospitalComment on above:Performed By: #### FRANK SOLOO #### [facility] [address] [place] [address] Dispatcher Bus [employer] Trolley: DANIELLE Wootenreatinine [Mass/Vol]1.46 mg/dLHigh0.50-0.90 [facility] HospitalComment on above:Performed By: #### COLLEEN SOLOICAO #### [facility] [address] [place] [address] Dispatcher [employer]: Brandan Ugalde MDGFR, Amer48 mL/minLow>60[facility] HospitalComment on above:Performed By: #### PRATIBHA SOLO #### [address] [address] Dispatcher [employer] T[employer]: Brandan Ugalde MDGFR,non Amer39 mL/minLow>60[facility] HospitalComment on above:Performed By: #### PRATIBHA SOLO #### [facility] [address] [place] [address] Dispatcher [employer]: Brandan Ugalde MDGlucose [Mass/Vol]109 mg/rQLlrb81-36Gtxal [facility] PresbyterianComment on above:Performed By: #### GERMANIA UMICAO #### [facility] [address] [place] [address] Dispatcher Bus [employer] Trolley: DANIEL Wootenhosphorus, Inorg.3.2 mg/dLNormal2.6-4.5[facility] HospitalComment on above:Performed By: #### GERMANIA UMICAO #### [facility] [address] [place] [address] Dispatcher Bus And Trolley: DANIEL Wootenotassium [Moles/Vol]3.6 mmol/LLow3.7-5.3[facility] PresbyterianComment on above:Performed By: #### GERMANIA UMVESNA #### [facility] [address] [place] [address] Dispatcher Bus [employer] Trolley: JACOB Wootenodium [Moles/Vol]141 mmol/KVfncfp257-151QpbdsUc West Chester HospitalComment on above:Performed By: #### GERMANIA UMICAO #### [facility] [address] [place] [address] Dispatcher Bus [employer] Trolley: Brandan Ugalde MDUrea nitrogen [Mass/Vol]22 mg/dLHigh6-20[facility] HospitalComment on above:Performed By: #### GERMANIA UMICAMuriel #### [facility] [address] [place] [address] Dispatcher Bus And Trolley: CHAVO Wooten/CRE EspinozaOT REPORTEDNoiredell memorial hospital9-20[facility] HospitalComment on above:Performed By: #### PRATIBHA SOLO #### [facility] [address] [place] [address] Dispatcher [employer] And Trolley: JACOB Wootentaging:NOT REPORTEDNormMercy Health Fairfield HospitalComment on above:Performed By: #### GERMANIA UMICAO #### [facility] [address] [place] [address] Dispatcher Bus And Trolley: JACOB Wootentool PCR Batteryon 84-51-9502Uvsvlzlsgiamz sp PCRNEGATIVE: No Campylobacter spp. (jejuni or coli) DNA DetectedNormalCMercy Health St. Charles HospitalComment on above:Performed By: #### GERMANIA UMICAMuriel #### [facility] [address] [place] [address] Dispatcher Bus And Trolley: GODFREY Wooten coli enterotox PCRNEGATIVE: No Enterotoxigenic E. coli (ETEC) Heat-labile and heat-stable (LT/ST)NormalEECNEGUc West Chester HospitalComment on above:Result Comment: DNA DetectedPerformed By: #### GERMANIA UMICAO #### [facility] [address] [place] [address] Dispatcher Bus And Trolley: Gil Wootenmonas sp PCRNegativeNormalPLENEGUc West Chester HospitalComment on above:Performed By: #### GERMANIA UMICAO #### [facility] [address] [place] [address] Dispatcher Bus And Trolley: JACOB Wootenalmonella sp PCRNegativeNormalSALNEGUc West Chester HospitalComment on above:Performed By: #### GERMANIA UMICAO #### [address] [address] Dispatcher Bus [employer] Trolley: Evelio Wootengatoxin gene PCRNegativeNoalSTXNEGUc West Chester HospitalComment on above:Performed By: #### GERMANIA UMICAO #### [address] [address] Dispatcher Bus And Trolley: Evelio Wootengella sp PCRNegativeNoDosher Memorial HospitalHIGreen Cross HospitalComment on above:Performed By: #### GERMANIA UMICAO #### [address] [address] Dispatcher Bus [employer] Trolley: Nick Wooten sp PCRNEGATIVE: No Vibrio (V. vulnificus, V, parahaemolyticus and V. cholerae) DNANormalVIBNEGUc West Chester HospitalComment on above:Result Comment: DetectedPerformed By: #### GERMANIA UMICAO #### [address] [address] Dispatcher Bus And Trolley: Krista Wooten gene PCRNegativeNormalYERGreen Cross HospitalComment on above:Performed By: #### GERMANIA UMICAO #### [address] [place] [place], [place] [phone] Dispatcher Bus And Trolley: Abdi Wooten [id number] Coag (Bld) [Time]22.1 s Vixlka85.5-30.5[facility] HospitalComment on above:Result Comment: IV Heparin Therapy Range: 48.6-77.8Performed By: #### LACWB #### [facility] [address] [place] [address] [phone] Dispatcher Bus And Trolley: Jose D Wooten Coag (Bld) [Time]22.1 [facility] HospitalComment on above: IV Heparin Therapy Range: 48.6-77.8 [facility], IncBETA-HYDROXYBUTERATEon 07-05-8411Miop-Hydroxybutyrate0.2 mmol/L0.02 - 0.27 mmol/LMThedaCare Medical Center - Berlin IncBeta Hydroxybutyrateon 98-01-3425Jxwr Hydroxybutyrate0.20 mmol/LNormal0.02-0.27[facility] HospitalComment on above:Performed By: #### VBG #### [facility] [address] [place], [place] [id number] Dispatcher Bus And Trolley: Raul Wooten, Directon [id number].indirect [Mass/Vol]0.08 mg/dLNormal<0.31[facility] HospitalComment on above:Performed By: #### PTT, FIB, PT, LYTE, DBILI, TBIL, RETCT, CBC, LD, HAPT, PATH ####[facility] [address] [place] [address] [phone] Lab Director: Raul Wooten.indirect [Mass/Vol]0.08 mg/dL<0.31[facility], IncBilirubin, Totalon [id number] [Mass/Vol]0.17 mg/dLLow0.3-1.2MSt. Joseph HospitalComment on above:Performed By: #### PTT, FIB, PT, LYTE, DBILI, TBIL, RETCT, CBC, LD, HAPT, PATH ####[address] [address] Lab Director: Brandan Ugalde MDBilirubin [Mass/Vol]0.17 mg/dLLow0.3 - 1.2 mg/dLMercy Health Clermont Hospital diff Ag + Toxinon 10-01-2021 Specimen Description.FECESNormalUc West Chester HospitalComment on above:Performed By: #### UA UMICAO #### [address] [address] Dispatcher [employer] Trol[employer]: DANIELLE WootenBCon 83-50-9812Mbbipfmsqjx distribution width (RBC) [Ratio]13.8 %Wsgdvz96.8-14.4[facility] HospitalComment on above:Performed By: #### PTT, FIB, PT, LYTE, DBILI, TBIL, RETCT, CBC, LD, HAPT, PATH ####[address] [address] Lab Director: Brandan Ugalde MDHematocrit (Bld) [Volume fraction]32.2 %Low36.3-47.1 [facility] HospitalComment on above:Performed By: #### PTT, FIB, PT, LYTE, DBILI, TBIL, RETCT, CBC, LD, HAPT, PATH ####[address] [address] Lab Director: Brandan Ugalde MD Hemoglobin (Bld) [Mass/Vol]10.9 g/dLLow11.9-15.1MSt. Joseph Hospital Comment on above:Performed By: #### PTT, FIB, PT, LYTE, DBILI, TBIL, RETCT, CBC, LD, HAPT, PATH ####[address] [phone] Director: GAVIN WootenCH (RBC) [Entitic mass]29.1 pgNormal 25.2-33.5[facility] HospitalComment on above:Performed By: #### PTT, FIB, PT, LYTE, DBILI, TBIL, RETCT, CBC, LD, HAPT, PATH ####[facility] [address] [place] [address] Lab Director: RUPAL WootenC (RBC) [Mass/Vol]33.9 g/vFFkhhnh51.4-34.8[facility] HospitalComment on above:Performed By: #### PTT, FIB, PT, LYTE, DBILI, TBIL, RETCT, CBC, LD, HAPT, PATH ####[facility] [address] [place], [place] [address])[phone] Director: GAVIN WootenCV (RBC) [Entitic vol]85.9 fL Fcehec58.6-102.9[facility] HospitalComment on above:Performed By: #### PTT, FIB, PT, LYTE, DBILI, TBIL, RETCT, CBC, LD, HAPT, PATH ####[facility] [address] [place], [place] [address])[phone] Director: GOLDIE Wooten Automated0.0 per 100 WBCNormal0.0[facility] Comment on above:Performed By: #### PTT, FIB, PT, LYTE, DBILI, TBIL, RETCT, CBC, LD, HAPT, PATH ####[facility] [address] [place], [place] [address])[phone] Director: Isabell Wooten mean volume (Bld) [Entitic vol]10.4 fLNormal8.1-13.5[facility] HospitalComment on above:Performed By: #### PTT, FIB, PT, LYTE, DBILI, TBIL, RETCT, CBC, LD, HAPT, PATH ####[facility] [address] [place] [address] Lab Director: Brandan Madoff, MDPlatelets (Bld) [#/Vol]141 10*3/lBTvsbek897-305MshqbUc West Chester HospitalComment on above:Performed By: #### PTT, FIB, PT, LYTE, DBILI, TBIL, RETCT, CBC, LD, HAPT, PATH ####[facility] [address] [place], [place] [phone] Lab Director: DENG WootenBC (Bld) [#/Vol]3.75 10*6/uL Low3.95-5.11[facility] HospitalComment on above:Performed By: #### PTT, FIB, PT, LYTE, DBILI, TBIL, RETCT, CBC, LD, HAPT, PATH ####[facility] [address] [place] [address] Lab Director: Brandan Ugalde MDWBC (Bld) [#/Vol]4.8 10*3/uLNormal3.5-11.3MSt. Joseph HospitalComment on above:Performed By: #### PTT, FIB, PT, LYTE, DBILI, TBIL, RETCT, CBC, LD, HAPT, PATH ####[facility] [address] [place] [address] Lab Director: Brandan Ugalde MDHematocrit (Bld) [Volume fraction]32.2 %Low36.3 - 47.1 %[facility], IncHemoglobin.gastrointestinal spec 1 Ql (Stl)10.9 g/dLLow11.9 - 15.1 g/dLSelect Medical Specialty Hospital [facility], IncInterpretation and review of laboratory resultsAbnormalFairfield Medical CenterH (RBC) [Entitic mass]29.1 pg25.2 - 33.5 pgFairfield Medical CenterHC (RBC) [Mass/Vol]33.9 g/dL28.4 - 34.8 g/dLFairfield Medical CenterV (RBC) [Entitic vol]85.9 fL82.6 - 102.9 fLSelect Medical Specialty Hospital [facility], IncNRBC Automated0.00.0 per 100 WBCSelect Medical Specialty Hospital - [facility], IncPlatelet distribution width (Bld) [Ratio]13.8 %11.8 - 14.4 % [facility], IncPlatelet mean volume (Bld) [Entitic vol]10.4 fL8.1 - 13.5 fLMiami Valley Hospital HealthPlatelets (Bld) [#/Vol]141 10*3/uLMiami Valley Hospital HealthRBC (Bld) [#/Vol]3.75 10*6/uLLow3.95 - 5.11 m/uLSelect Medical Specialty Hospital [facility], IncWBC (Bld) [#/Vol]4.8 10*3/uLSelect Medical Specialty Hospital [facility], Inc CBC auto differentialon [id number] Eos #0.05[facility], IncAbsolute Immature Granulocyte0.04[facility], IncAbsolute Lymph #1.46MerMultiCare Tacoma General HospitalAbsolute Potter #0.46[facility], IncBasophils (Bld) [#/Vol]10*3/uLSelect Medical Specialty Hospital - [facility], IncBasophils/100 WBC (Bld)1 %0 - 2 %[facility], IncDifferential TypeNOT REPORTEDSelect Medical Specialty [facility], Inc Eosinophils/100 WBC (Bld)1 %1 - 4 %[facility], IncHematocrit (Bld) [Volume fraction]28.5 %Low36.3 - 47.1 %[facility], IncHemoglobin.gastrointestinal spec 1 Ql (Stl)10.0 g/dLLow11.9 - 15.1 g/dLSelect Medical Specialty Hospital - [facility], IncImmature granulocytes/100 WBC (Bld) 1 %Vmrh6QinpzSelect Medical Specialty Hospital - [facility], IncInterpretation and review of laboratory resultsAbnormalSelect Medical Specialty Hospital [facility], IncLymphocytes/100 WBC (Bld)37 %24 - 43 %Fairfield Medical CenterH (RBC) [Entitic mass] 29.6 pg25.2 - 33.5 pgFairfield Medical CenterHC (RBC) [Mass/Vol]35.1 g/tHUfhk86.4 - 34.8 g/dLFairfield Medical CenterV (RBC) [Entitic vol]84.3 fL82.6 - 102.9 fLSelect Medical Specialty Hospital - [facility], Inc Monocytes/100 WBC (Bld)12 %3 - 12 %[facility], IncNRBC Automated0.00.0 per 100 WBC [facility], IncPlatelet distribution width (Bld) [Ratio]13.9 %11.8 - 14.4 %[facility], IncPlatelet EstimateNOT REPORTEDSelect Medical Specialty [facility], IncPlatelet mean volume (Bld) [Entitic vol]NOT REPORTED8.1 - 13.5 fLMiami Valley Hospital HealthPlatelets (Bld) [#/Vol]See Reflexed IPF ResultMiami Valley Hospital HealthRBC (Bld) [#/Vol]3.38 10*6/uLLow3.95 - 5.11 m/uL [facility], IncRBC (Bld) [#/Vol]NOT REPORTEDSelect Medical Specialty [facility], IncSegmented neutrophils/100 WBC (Bld)48 %36 - 65 %[facility], IncSegs Absolute1.91[facility], IncWBC (Bld) [#/Vol] 3.9 10*3/uLMiami Valley Hospital HealthWBC (Bld) [#/Vol]NOT REPORTEDAurora Health Care Bay Area Medical CenterCB with Diffon 48-60-1087Nic. Basophil<0.03Gpxwig0.00-0.20[facility] HospitalComment on above:Performed By: #### EMMA #### [place] [address] Dispatcher Bus And Trolley: MDAbs. SugarImm.Granulocyte0.04 k/uLNormal0.00-0.30[facility] HospitalComment on above:Performed By: #### EMMA #### [place] [address] Dispatcher Bus And Trolley: Karma Wooten.Neutrophil (Seg)1.91 k/uLNormal1.50-8.10 [facility] HospitalComment on above:Performed By: #### LACWB #### [facility] [address] [place] [address] Dispatcher Bus And Trolley: Brandan Ugalde MDBasophils/100 WBC (Bld)1 %Normal0-2MSt. Joseph HospitalComment on above:Performed By: #### LACWB #### [place] [address] Dispatcher Bus And Trolley: Brandan Ugalde MDEosinophils (Bld) [#/Vol]0.05 10*3/uLNormal 0.00-0.44[facility] HospitalComment on above:Performed By: #### LACWB #### [place] [address] Dispatcher Bus And Trolley: Brandan Ugalde MDEosinophils/100 WBC (Bld)1 %Normal1-4[facility] HospitalComment on above:Performed By: #### LACWB #### [place] [address] Dispatcher Bus And Trolley: Brandan Ugalde MDErythrocyte distribution width (RBC) [Ratio]13.9 %Jubrko88.8-14.4[facility] HospitalComment on above:Performed By: #### LACWB #### [place] [address] Dispatcher Bus And Trolley: Brandan Ugalde MDHematocrit (Bld) [Volume fraction]28.5 %Low 36.3-47.1MSt. Joseph HospitalComment on above:Performed By: #### LACWB #### [place] [address] Dispatcher Bus And Trolley: Brandan Ugalde MDHemoglobin (Bld) [Mass/Vol]10.0 g/dLLow11.9-15.1 [facility] HospitalComment on above:Performed By: #### LACWB #### [place] [address] Dispatcher Bus And Trolley: Brandan Ugalde MDImmature granulocytes/100 WBC (Bld)1 %Bryv2TmhjeUc West Chester HospitalComment on above:Performed By: #### LACWB #### [place] [address] Dispatcher Bus And Trolley: Brandan Ugalde MDLymphocytes (Bld) [#/Vol]1.46 10*3/uLNormal 1.10-3.70[facility] HospitalComment on above:Performed By: #### LACWB #### [address] [address] Dispatcher Bus And Trolley: Brandan Ugalde MDLymphocytes/100 WBC (Bld)37 %Ruukya77-71YgybsUc West Chester HospitalComment on above:Performed By: #### LACWB #### [place] [address] Dispatcher Bus And Trolley: GAVIN WootenCH (RBC) [Entitic mass]29.6 lpWkajpl11.2-33.5 [facility] HospitalComment on above:Performed By: #### LACWB #### [address] [address] Dispatcher Bus And Trolley: GAVIN WootenCHC (RBC) [Mass/Vol]35.1 g/zRQnfd11.4-34.8[facility] HospitalComment on above:Performed By: #### LACWB #### [place] [address] Dispatcher Bus And Trolley: GAVIN WootenCV (RBC) [Entitic vol]84.3 wEChazvi96.6-102.9 [facility] HospitalComment on above:Performed By: #### LACWB #### [place] [address] Dispatcher Bus And Trolley: Brandan Ugalde MDMonocytes (Bld) [#/Vol]0.46 10*3/uLNormal 0.10-1.20[facility] HospitalComment on above:Performed By: #### LACWB #### [address] [address] Dispatcher Bus And Trolley: GAVIN Wootenonocytes/100 WBC (Bld)12 %Normal3-12[facility] HospitalComment on above:Performed By: #### LACWB #### [facility] [place] [address] Dispatcher Bus And Trolley: Marie Wootenutrophil (Seg)48 %Shpssg58-35NskwrUc West Chester HospitalComment on above:Performed By: #### LACWB #### [facility] [address] [place] [address] Dispatcher Bus And Trolley: Brandan Ugalde MDNRBC Automated0.0 per 100 WBCNormal0.0[facility] HospitalComment on above:Performed By: #### LACWB #### [facility] [address] [place] [address] Dispatcher Bus And Trol[employer]: Isabell Wooten CountSee Reflexed IPF ResultNormal 138-453Uc [facility] HospitalComment on above:Performed By: #### LACWB #### [address] [address] Dispatcher Bus And Trolley: DENG WootenBC (Bld) [#/Vol]3.38 10*6/uLLow3.95-5.11U[facility] HospitalComment on above:Performed By: #### LACWB #### [address] [address] Dispatcher Bus And Trolley: VALENTÍN WootenBC (Bld) [#/Vol]3.9 10*3/uLNormal3.5-11.3MSt. Joseph HospitalComment on above:Performed By: #### LACWB #### [facility] [address] [place] [address] Dispatcher Bus And Trolley: Laxmi Wooten PerformedNOT REPORTEDSaint Mary'S Health CenteralUc West Chester HospitalComment on above:Performed By: #### LACWB #### [facility] [address] [place] [address] Dispatcher Bus And Trolley: Brandan Madoff, MDMPVNOT REPORTEDNormal8.1-13.5MerHemet Global Medical CenterComment on above:Performed By: #### LACWB #### [employer] [address] [place] [address] Dispatcher Bus And Trolley: DANIEL Wootenlatelet CommentNOT REPORTEDNormalUc West Chester HospitalComment on above:Performed By: #### LACWB #### [employer] [address] [place] [address] Dispatcher Bus And Trolley: BAKARI Wooten morphology finding Nom (Bld)NOT REPORTED NormalUc West Chester HospitalComment on above:Performed By: #### LACWB #### [facility] [place] [address] Dispatcher Bus And Trolley: MISTY Wooten MorphologyNOT REPORTEDNormalUc West Chester HospitalComment on above:Performed By: #### LACWB #### [facility] [address] [place] [address] Dispatcher Bus And Trolley: DANIELLE WootenHLJUAN, URINE, RANDOMon 42-11-4280Oozjqfgz, Ur 33 mmol/LMercy HealthComment on above:No normal range established.CT ABDOMEN PELVIS WO CONTRASTon [id number] ABDOMEN PELVIS WO CONTRASTEXAMINATION: CT OF THE ABDOMEN AND PELVIS WITHOUT [...] fluid in the pelvis. No pelvic lymphadenopathy. Peritoneum/Retroperitoneum: The abdominal aorta is normal in caliber. There is no retroperitoneal or mesenteric lymphadenopathy. Bones/Soft Tissues: There is a tiny fat containing umbilical hernia. No acute or suspicious osseous abnormality. IMPRESSION: 1. No acute process in the abdomen or pelvis. 2. Trace bilateral pleural fluid and mild bibasilar atelectasis. RECOMMENDATIONS: Unavailable Interpreted by: Beulah Felix DO Signed by: Beulah Felix DO 10/01/21 Final resultNormalMercy Hoag Memorial Hospital PresbyterianCT ABDOMEN PELVIS WO CONTRAST Additional Contrast? Oralon . No acute process in the abdomen or pelvis. 2. Trace bilateral pleural fluid and mild bibasilar atelectasis. RECOMMENDATIONS: Unavailable [facility] RIS CONSOLIDATEDEXAMINATION: CT OF THE ABDOMEN AND PELVIS WITHOUT [...] fluid in the pelvis. No pelvic lymphadenopathy. Peritoneum/Retroperitoneum: The abdominal aorta is normal in caliber. There is no retroperitoneal or mesenteric lymphadenopathy. Bones/Soft Tissues: There is a tiny fat containing umbilical hernia. No acute or suspicious osseous abnormality. [facility] RIS CONSOLIDATEDTonyjairo Beulah DO - 10/01/2021 EXAMINATION: CT OF THE [...] fluid in the pelvis. No pelvic lymphadenopathy. Peritoneum/Retroperitoneum: The abdominal aorta is normal in caliber. There is no retroperitoneal or mesenteric lymphadenopathy. Bones/Soft Tissues: There is a tiny fat containing umbilical hernia. No acute or suspicious osseous abnormality. IMPRESSION: 1. No acute process in the abdomen or pelvis. 2. Trace bilateral pleural fluid and mild bibasilar atelectasis. RECOMMENDATIONS: Unavailable [employer] Phone: radiology Study observation (narrative)[employer] Phone: cT ABDOMEN PELVIS WO CONTRAST Additional Contrast? OralOrdered By: Beulah Felix on 53-48-3995[facility] Work Phone: Chloride,Random Uron 42-65-6363Twxdduxr [Moles/Vol]33 mmol/LNormalUc West Chester HospitalComment on above:Result Comment: No normal range established.Performed By: ###PRATIBHA FARIAS #### [facility] HospitalH[facility] [address] [place] [address] Dispatcher Bus [employer] Trolley: Melo Wooten Metabolic Pr/rfx MGon 55-50-3280RRJ [Catalytic activity/Vol]12 U/LNormal<32U[facility] HospitalComment on above:Performed By: #### LACWB #### [facility] HospitalHotelements [address] [place] [address] Dispatcher Bus [employer] Trolley: Brandan Ugalde MDBilirubin [Mass/Vol]mg/dLLow0.3-1.2MSt. Joseph HospitalComment on above:Performed By: #### RICKEYB #### [facility] [address] [place] [address] Dispatcher Bus And Trolley: Brandan Ugalde MD(cont.)[facility] Comment on above:Result Comment: Average GFR for 40-49 years old: 99 mL/min/1.73sq m Chronic Kidney Disease: <60 mL/min/1.73sq m Kidney failure: <15 mL/min/1.73sq m eGFR calculated using average adult body mass. Additional eGFR calculator available at: http://www.[employer].Sembraire/multiple_crcl_2012.htmPerformed By: #### LACWB #### [facility] [address] [place] [address] Dispatcher Bus [employer] Trolley: Brandan Ugalde MDAlbumin [Mass/Vol]1.9 g/dLLow3.5-5.2Mpremier health upper valley medical centery [facility] Hospital PresbyterianComment on above:Performed By: #### LACWB #### [facility] [facility] [place] [address] Dispatcher Bus And Trolley: Brandan gUalde MDAlbumin/Glob Ratio0.7Low1.0-2.5U[facility] HospitalComment on above:Performed By: #### LACWB #### [facility] [address] [place] [address] Dispatcher Bus [employer] Trolley: Mona Wooten Phos69 U/PHgldgr21-624WmlieUc West Chester HospitalComment on above:Performed By: #### LACWB #### [address] [address] Dispatcher Bus [employer] Trol[employer]: Brandan Ugalde MDALT [Catalytic activity/Vol]11 U/LNormal5-33 [facility] HospitalComment on above:Performed By: #### LACWB #### [address] [address] Dispatcher Bus [employer] Trolley: Brandan Ugalde MDAnion gap [Moles/Vol]10 mmol/LNormal9-17[facility] HospitalComment on above:Performed By: #### LACWB #### [address] [address] Dispatcher Bus And Trolley: DANIELLE Wootenalcium [Mass/Vol]8.2 mg/dLLow8.6-10.4U[facility] HospitalComment on above:Performed By: #### LACWB #### [address] [address] Dispatcher Bus [employer] Trolley: DANIELLE Wootenhloride [Moles/Vol]115 mmol/KFdtt49-853MpaggUc West Chester HospitalComment on above:Performed By: #### LACWB #### [facility] [address] [place] [address] Dispatcher Bus [employer] Trolley: Brandan Ugalde MDCO2 [Moles/Vol]13 mmol/THnp81-67HrmcaUc West Chester HospitalComment on above:Performed By: #### LACWB #### [facility] [address] [place] [address] Dispatcher Bus [employer] Trolley: Brandan Madoff, MDCreatinine [Mass/Vol]1.77 mg/dLHigh0.50-0.90 [facility] HospitalComment on above:Performed By: #### LACWB #### [address] [address] Dispatcher Bus [employer] Trolley: Brandan Ugalde MDGFR, Amer38 mL/minLow>60[facility] HospitalComment on above:Performed By: #### LACWB #### [address] [address] Dispatcher Bus And Trolley: BRAIN Wooten,non Amer31 mL/minLow>60U[facility] HospitalComment on above:Performed By: #### LACWB #### [place] [address] Dispatcher Bus [employer] Trolley: Brandan Ugalde MDGlucose [Mass/Vol]184 mg/wXGkkb76-32Vijzn [facility] PresbyterianComment on above:Performed By: #### LACWB #### [place] [address] Dispatcher Bus And Trolley: Brandan Ugalde MDPotassium [Moles/Vol]3.5 mmol/LLow3.7-5.3MSt. Joseph HospitalComment on above:Performed By: #### LACWB #### [place] [address] Dispatcher Bus And Trolley: Brandan Ugalde MDProtein [Mass/Vol]4.6 g/dLLow6.4-8.3[facility] PresbyterianComment on above:Performed By: #### LACWB #### [address] [address] Dispatcher Bus And Trolley: Brandan Ugalde MDSodium [Moles/Vol]138 mmol/SSguklq349-656YonhiUc West Chester HospitalComment on above:Performed By: #### LACWB #### [facility] [address] [place] [address] Dispatcher Bus And Trolley: Brandan Ugalde MDUrea nitrogen [Mass/Vol]31 mg/dLHigh6-20[facility] HospitalComment on above:Performed By: #### LACWB #### [facility] [address] [place] [address] Dispatcher Bus And Trolley: Brandan Ugalde MDBUN/CRE RatioNOT REPORTEDNormal9-20[facility] HospitalComment on above:Performed By: #### LACWB #### [facility] [address] [place] [address] Dispatcher Bus And Trolley: JACOB Wootentaging:NOT REPORTEDNormalUc West Chester HospitalComment on above:Performed By: #### LACWB #### [facility] [address] [place] [address] Dispatcher Bus And Trolley: DANIELLE Wootenomprehensive Metabolic Panel w/ Reflex to MGon 14-27-0037Hvoitdz [Mass/Vol]1.9 g/dLLow3.5 - 5.2 g/dLMercy Health Albumin/Globulin [Mass ratio]0.7 {ratio}LowMercy HealthALP (Bld) [Catalytic activity/Vol]69 U/L35 - 104 U/LMercy HealthALT [Catalytic activity/Vol]11 U/L5 - 33 U/LMercy HealthAnion gap [Moles/Vol]10 mmol/L9 - 17 mmol/LMercy HealthAST [Catalytic activity/Vol]12 U/L<32Mercy HealthBilirubin [Mass/Vol]mg/dLLow0.3 - 1.2 mg/dLMercy HealthCalcium [Mass/Vol]8.2 mg/dLLow8.6 - 10.4 mg/dLMercy Health Chloride [Moles/Vol]115 mmol/LHigh98 - 107 mmol/LMercy HealthCO2 [Moles/Vol]13 mmol/LLow20 - 31 mmol/LMercy HealthCreatinine [Mass/Vol]1.77 mg/dLHigh0.50 - 0.90 mg/dLSelect [facility] Special[facility], IncFree PSA/Total PSA [Mass fraction]4.6 g/dLLow6.4 - 8.3 g/dLMiami Valley Hospital HealthGFR Yuyggsmb74 mL/minLow>60Mer HealthGFR Non- Fsvthflq65 mL/minLow>60Mer HealthGFR/1.73 sq M.predicted MDRD (S/P/Bld) [Vol rate/Area][facility], IncComment on above:Average GFR for 40-49 years old: 99 mL/min/1.73sq m Chronic Kidney Disease: <60 mL/min/1.73sq m Kidney failure: <15 mL/min/1.73sq m eGFR calculated using average adult body mass. Additional eGFR calculator available at: http://www.Valderm/multiple_crcl_2011.htm GFR/1.73 sq M.predicted MDRD (S/P/Bld) [Vol rate/Area]NOT REPORTEDSelect Medical Specialty [facility], Inc Glucose [Mass/Vol]184 mg/vXHncr72 - 99 mg/dLSelect Medical Specialty [facility], IncInterpretation and review of laboratory resultsAbnormRandolph Health HealthPotassium [Moles/Vol]3.5 mmol/L Low3.7 - 5.3 mmol/LMercy HealthSodium [Moles/Vol]138 mmol/L135 - 144 mmol/LMercy HealthUrea nitrogen (BldV) [Mass/Vol]31 mg/dLHigh6 - 20 mg/dLSelect Medical Specialty [facility], IncUrea nitrogen/Creatinine (Bld) [Mass ratio]NOT REPORTEDAurora Health Care [facility] Center Electrolyte Panelon 13-30-2249Owxjw gap [Moles/Vol]8 mmol/LLow9 - 17 mmol/LMercy HealthChloride [Moles/Vol]108 mmol/LHigh98 - 107 mmol/LMercy HealthCO2 [Moles/Vol]19 mmol/LLow20 - 31 mmol/LMercy HealthInterpretation and review of laboratory resultsAbnormalMer HealthPotassium [Moles/Vol]3.4 mmol/LLow3.7 - 5.3 mmol/LMercy HealthSodium [Moles/Vol]135 mmol/L135 - 144 mmol/LMercy Health [facility] Hospitaly HealthAnion gap [Moles/Vol]9 mmol/L9 - 17 mmol/LMercy HealthChloride [Moles/Vol]112 mmol/LHigh98 - 107 mmol/LMercy HealthCO2 [Moles/Vol]16 mmol/LLow 20 - 31 mmol/LMercy HealthPotassium [Moles/Vol]3.2 mmol/LLow3.7 - 5.3 mmol/L [facility] HealthSodium [Moles/Vol]137 mmol/L135 - 144 mmol/LMercy HealthElectrolytes on 11-75-1997Xaerc gap [Moles/Vol]8 mmol/LLow9-17[facility] HospitalComment on above:Performed By: #### PRATIBHA SOLO #### [facility] [address] [place] [address] Dispatcher Bus [employer] Trolley: Brandan Ugalde MDChloride [Moles/Vol]108 mmol/CEfck53-735KtlrcUc West Chester HospitalComment on above:Performed By: #### PRATIBHA SOLO #### [facility] [address] [place] [address] Dispatcher Bus [employer] Trolley: Brandan Ugalde MDCO2 [Moles/Vol]19 mmol/JLnm04-30FztpsUc West Chester HospitalComment on above:Performed By: #### PRATIBHA SOLO #### [facility] [address] [place] [address] Dispatcher Bus And Trolley: Brandan Ugalde MDPotassium [Moles/Vol]3.4 mmol/LLow3.7-5.3[facility] PresbyterianComment on above:Performed By: #### COLLEEN SOLOICAO #### [facility] [address] [place] [address] Dispatcher Bus [employer] Trolley: Brandan Ugalde MDSodium [Moles/Vol]135 mmol/AEzdcfw746-377FkfkpUc West Chester HospitalComment on above:Performed By: #### GERMANIA UMICAO #### [facility] [address] [place] [address] Dispatcher Bus [employer] Trolley: Brandan Ugalde MDAnion gap [Moles/Vol]9 mmol/LNormal9-17[facility] HospitalComment on above:Performed By: #### LACWB #### [address] [address] Dispatcher Bus [employer] Trolley: Brandan Ugalde MDChloride [Moles/Vol]112 mmol/UCywy47-037LcgrxUc West Chester HospitalComment on above:Performed By: #### LACWB #### [address] [address] Dispatcher Bus [employer] Trolley: Brandan Ugalde MDCO2 [Moles/Vol]16 mmol/JKvk53-70JffqjUc West Chester HospitalComment on above:Performed By: #### LACWB #### [address] [address] Dispatcher Bus And Trolley: Brandan Ugalde MDPotassium [Moles/Vol]3.2 mmol/LLow3.7-5.3MSt. Joseph HospitalComment on above:Performed By: #### LACWB #### [address] [address] Dispatcher Bus [employer] Trolley: Brandan Ugalde MDSodium [Moles/Vol]137 mmol/YBjbiym999-504PbfcfUc West Chester HospitalComment on above:Performed By: #### LACWB #### [address] [address] Dispatcher Bus [employer] Trolley: Brandan Ugalde MDFibrinogenon 22-96-7288Cfphtdtxgc758 mg/dLNormal 140-420[facility] HospitalComment on above:Performed By: #### LACWB #### [address] [address] Dispatcher Bus And Trolley: Brandan Ugalde MDFibrinogen389 mg/dL140 - 420 mg/dLSelect Medical Specialty [facility], Inc Immature Platelet Fractionon 83-50-7336Qkafivmu, FluorescencePlatelet clumps present, count appears decreased.[facility] Area Medical CenterLactate Dehydrogenaseon 48-67-1500UYY [Catalytic activity/Vol]233 U/BKjcx927-619LuexrUc West Chester HospitalComment on above:Performed By: #### PTT, FIB, PT, LYTE, DBILI, TBIL, RETCT, CBC, LD, HAPT, PATH ####[facility] [address] [place] [address] Lab Director: Brandan Ugalde MDInterpretation and review of laboratory resultsAbnoAtrium Health Wake [facility] Center FstizjXK910 U/KJuvj406 - 214 U/LMercy [facility], [facility] HealthMagnesiumon 03-17-9449Qnpqvpayl [Mass/Vol]2.0 mg/dLNormal1.6-2.6 [facility] HospitalComment on above:Performed By: #### LACWB #### [address] [address] Dispatcher Bus And Trolley: Brandan Ugalde MDMagnesium [Mass/Vol]2.0 mg/dL1.6 - 2.6 mg/dL [facility] Medical CenterNo Panel Informationon 46-79-0138WqhufAurora Health Care Bay Area Medical CenterInterpretation and review of laboratory resultsAbThedaCare Regional Medical Center–Appleton HealthPLT, Immature Fract.on 35-24-3697Glvunrtz, Fluoresc.Platelet clumps present, count appears decreased.Eoavcm803-510HslsjUc West Chester HospitalComment on above:Performed By: #### LACWB #### [address] [address] Dispatcher Bus And Trolley: ROSELIA Wooten, Immature Fract.NOT REPORTEDNormal1.1-10.3 [facility] HospitalComment on above:Performed By: #### LACWB #### [facility] [address] [place] [address] Dispatcher Bus And Trolley: YARI Wooten Glucose Fingerstickon 06-57-8377Mfwzhpt [Mass/Vol]177 mg/tKWcnu87 - 105 mg/dLSelect Medical Specialty [facility], IncInterpretation and review of laboratory resultsAbnormalAurora Health Care Bay Area Medical CenterGlucose [Mass/Vol]188 mg/dL High65 - 105 mg/dLMiami Valley Hospital HealthInterpretation and review of laboratory results AbnormalMerClinton Memorial HospitalGlucose [Mass/Vol]225 mg/fOEjbu73 - 105 mg/dL [facility], IncInterpretation and review of laboratory resultsAbnormFort Memorial HospitalGlucose [Mass/Vol]197 mg/qNJnqy58 - 105 mg/dLSelect Medical Specialty [facility], Inc Interpretation and review of laboratory resultsAbnoMendota Mental Health Institute Glucose [Mass/Vol]137 mg/eRBcgp55 - 105 mg/dLSelect Medical Specialty [facility], IncInterpretation and review of laboratory resultsAbSpooner HealthPOTASSIUM, URINE, RANDOMon 87-11-0092Fjghbyzwm, Ur7 mmol/LMadena health system HealthComment on above:No normal range established.PROTIME-INRon 92-12-4076ZDX Coag (Bld) [Relative time]1.3 {INR}[facility], IncComment on above: Therapeutic Range: Moderate Anticoagulant Intensity: INR = 2.0-3.0 High Anticoagulant Intensity: INR = 2.5-3.5 Interpretation and review of laboratory resultsAbThe University of Toledo Medical CenterPT Coag (PPP) [Time]13.8 [facility] 42-68-8078ZTC Coag (PPP) [Relative time]1.1 {INR}[facility] Regional HospitalComment on above:Result Comment: Therapeutic Range: Moderate Anticoagulant Intensity: INR = 2.0-3.0 High Anticoagulant Intensity: INR = 2.5-3.5Performed By: #### LACWB #### [facility] [address] [place] [address] Dispatcher Bus [employer] Trol[employer]: PAT Wooten Coag (PPP) [Time]11.4 sNormal9.1-12.3MSt. Joseph HospitalComment on above:Performed By: #### KATHYWB #### [facility] [address] [place] [address] [phone] Dispatcher Bus And Trolley: LINA Wooten Coag (PPP) [Relative time]1.3 {INR}Normal [facility] HospitalComment on above:Result Comment: Therapeutic Range: Moderate Anticoagulant Intensity: INR = 2.0-3.0 High Anticoagulant Intensity: INR = 2.5-3.5Performed By: #### LACWB #### [address] [phone] Dispatcher Bus And Trolley: PAT Wooten Coag (PPP) [Time]13.8 sHigh9.1-12.3[facility] PresbyterianComment on above:Performed By: #### EMMA #### [address] [phone] Dispatcher Bus And Trolley: Giselle Wootenhoruson 70-66-1914Ogrxhvyyrbtunf and review of laboratory resultsAbnormalMiami Valley Hospital HealthPhosphate [Mass/Vol]1.8 mg/dLLow2.6 - 4.5 mg/dLKettering Health – So[facility] Medical Center HealthPhosphorus, Inorg.on 28-95-1032Djcgaquufk, Inorg.1.8 mg/dLLow2.6-4.5[facility] HospitalComment on above: Performed By: #### EMMA #### [facility] [address] [place] [address] Dispatcher Bus And Trolley: Alrette Wootenium,Random Uron 01-87-6047Vmejtpwmb [Moles/Vol]7.0 mmol/LNormalUc West Chester HospitalComment on above: Result Comment: No normal range established.Performed By: #### PRATIBHA SOLO #### [facility] [address] [place] [address] [phone] Dispatcher Bus And Trolley: DANIEL Wootenrotime-INRon 78-10-7902UDQ Coag (Bld) [Relative time]1.1 {INR}[facility], IncComment on above: Therapeutic Range: Moderate Anticoagulant Intensity: INR = 2.0-3.0 High Anticoagulant Intensity: INR = 2.5-3.5 PT Coag (PPP) [Time]11.4 [facility] Viral Panelon 08-35-9179LdcfhzhqeoVod detectedNormalNOTDELancaster Municipal HospitalComment on above:Performed By: #### RVP ####[facility] [address] [place], [place] [phone] Director: Maria T Wooten.parapertussisNot detectedNormalNOTDET [facility] HospitalComment on above:Performed By: #### RVP ####[facility] [address] [place], [place] [phone] Director: Jaci Wootentella pertussisNot detectedNormalNOTDELancaster Municipal HospitalComment on above:Performed By: #### RVP ####[facility] [address] [place], [place] [phone] Director: Brandan Ugalde MD Chlamyd.pneumoniaeNot detectedNormalNOTAvita Health System [facility] Comment on above:Performed By: #### RVP ####[facility] [address] [place], [place] [phone] Director: DANIELLE Wootenoronavirus 229E Not detectedNormalNOTDELancaster Municipal HospitalComment on above: Performed By: #### RVP ####[facility] U[address] [place], [place] [phone] Director: DANIELLE Wootenoronavirus BMP0Apr detected NormalNOTDELancaster Municipal HospitalComment on above:Performed By: #### RVP ####[facility] [address] [place], [place] [phone] Director: DANIELLE Wootenoronavirus CI47Hxj detectedNormalNOTDELancaster Municipal HospitalComment on above:Performed By: #### RVP ####[facility] [address] [place], [place] [phone] Director: DANIELLE Wootenorondavida AZ52Pza detectedNormalNOTDELancaster Municipal HospitalComment on above:Performed By: #### RVP ####[facility] [address] [place], [place] [phone] Director: Tommy Wooten Metapneumo Not detectedNormalNOTDELancaster Municipal HospitalComment on above: Performed By: #### RVP ####[address] [address] Lab Director: Maulik Wooten ANot detectedNormal NOTDELancaster Municipal HospitalComment on above:Performed By: #### RVP ####[address] [phone] Director: Maulik Wooten BNot detectedNormalNOTDELancaster Municipal HospitalComment on above:Performed By: #### RVP ####[address] [address] Lab Director: Brandan Ugalde MD Mycoplas.pneumoniaeNot detectedNormalNOTDELancaster Municipal Hospital Comment on above:Result Comment: Performed by multiplexed nucleic acid assay. Performed By: #### RVP ####[address] [address] Lab Director: Gabriele Wooten 1Not detected NormalNOTDELancaster Municipal HospitalComment on above:Performed By: #### RVP ####[facility] [place], [place] [phone] Director: Gabriele Wooten 2Not detectedNormalNOTDELancaster Municipal HospitalComment on above:Performed By: #### RVP ####[address] [phone] Director: Gabriele Wooten 3Not detectedNormalNOTDELancaster Municipal HospitalComment on above:Performed By: #### RVP ####[address] [phone] Director: Gabriele Wooten 4 Not detectedNormalNOTDELancaster Municipal HospitalComment on above: Performed By: #### RVP ####[address] [phone] Director: DENG Wootenesp Syncytial VirusNot detectedNormalNOTAvita Health System Galion HospitalComment on above:Performed By: #### RVP ####[address] [phone] Director: DENG Wootenhino/EnterovirusNot detectedNormalNOTDET [facility] HospitalComment on above:Performed By: #### RVP ####[address] [address] Lab Director: VIV WootenCoV-2 (COVID-19) RNA ARUN+probe Ql (Unsp spec)Not detected NormalNOTDELancaster Municipal HospitalComment on above:Performed By: #### RVP ####[address] [address] Lab Director: Maulik Wooten H1NOT REPORTEDNormalNOTDELancaster Municipal HospitalComment on above:Performed By: #### RVP ####[address] [phone] Director: Maulik Wooten H1-2009NOT REPORTEDNormalNOTDELancaster Municipal HospitalComment on above:Performed By: #### RVP ####[employer] [address] [place], [place] [phone] Lab Director: Brandan Ugalde MDInfluenza A H3 NOT REPORTEDNormalNOTDETMercy Hoag Memorial Hospital PresbyterianComment on above: Performed By: #### RVP ####[employer] [address] [place], [place] [phone] Lab Director: Devin Wooten:.NASOPHARYNGEAL SWAB NormalMerHemet Global Medical CenterComment on above:Performed By: #### RVP ####[employer] [address] [place], [place] [phone] Lab Director: DENG Wootenespiratory Panel, Molecular, with COVID-19 (Restricted: peds pts or suitable admitted adults)on 56-52-1054Ahgookrkuc PCRNot detectedNot DetectedMer HealthB Pertussis by PCRNot detectedNot DetectedMer Health Bordetella ParapertussisNot detectedNot DetectedMer HealthChlamydia pneumoniae By PCRNot detectedNot DetectedMer HealthCoronavirus 229E PCRNot detectedNot DetectedMer HealthCoronavirus HKU1 PCRNot detectedNot DetectedMer Health Coronavirus NL63 PCRNot detectedNot DetectedMer HealthCoronavirus OC43 PCRNot detectedNot DetectedMerMultiCare Tacoma General HospitalHuman Metapneumovirus PCRNot detectedNot DetectedMer HealthInfluenza A by PCRNot detectedNot DetectedSelect [facility], Inc Influenza A H1 (2009) PCRNOT REPORTEDNot DetectedMer HealthInfluenza A H1 PCR NOT REPORTEDNot DetectedMercy HealthInfluenza A H3 PCRNOT REPORTEDNot Detected [facility] HealthInfluenza B by PCRNot detectedNot DetectedMer HealthMycoplasma pneumo by PCRNot detectedNot DetectedMer HealthComment on above:Performed by multiplexed nucleic acid assay.Parainfluenza 1 PCRNot detectedNot DetectedMercy HealthParainfluenza 2 PCRNot detectedNot DetectedMercy HealthParainfluenza 3 PCR Not detectedNot DetectedMer HealthParainfluenza 4 PCRNot detectedNot Detected [facility], IncResp Syncytial Virus PCRNot detectedNot DetectedMercy Health Rhino/Enterovirus PCRNot detectedNot DetectedSelect [facility], IncSjkbzoUJJE-FtE-6 (COVID-19) RNA ARUN+probe Ql (Unsp spec)Not detectedNot DetectedSelect [facility], IncSpecimen Description.NASOPHARYNGEAL SWABAurora Health Care Bay Area Medical CenterRetic Counton 10-01-2021 Absolute Retic0.070 M/uLNormal0.030-0.080[facility] HospitalComment on above:Performed By: #### PTT, FIB, PT, LYTE, DBILI, TBIL, RETCT, CBC, LD, HAPT, PATH ####[facility] [address] [place] [address] [phone] Director: Brandan Ugalde MDIRF9.500 %Normal2.7-18.3MSt. Joseph HospitalComment on above:Performed By: #### PTT, FIB, PT, LYTE, DBILI, TBIL, RETCT, CBC, LD, HAPT, PATH ####[facility] N[address] [place] [address] [phone] Director: DENG Wootenetic Count1.8 %Normal0.5-1.9 [facility] HospitalComment on above:Performed By: #### PTT, FIB, PT, LYTE, DBILI, TBIL, RETCT, CBC, LD, HAPT, PATH ####[address] [place], [place] [phone] Director: DENG Wootenetic Iccwqdotvc68.5 foYwidgg77.2-35.7[facility] HospitalComment on above:Performed By: #### PTT, FIB, PT, LYTE, DBILI, TBIL, RETCT, CBC, LD, HAPT, PATH ####[facility] [address] [place] [address] [phone] Director: DENG Wooteneticulocyteson [id number] Retic #0.070[facility], IncImmature Retic Fract9.5 %2.7 - 18.3 %[facility] %1.8 %0.5 - 1.9 % [facility] Wqxvrwbbbs23.5 pg28.2 - 35.7 pgMiami [facility] Hospital HealthSODIUM, URINE, RANDOMon 97-02-8357Lneuun (U) [Moles/Vol]27 mmol/LMercy HealthComment on above: No normal range established.Sodium, Random Uron 11-63-4069Zockea (U) [Moles/Vol] 27 mmol/LNormalUc West Chester HospitalComment on above:Result Comment: No normal range established.Performed By: #### UA, UMICAO #### [facility] [address] [place] [address] Dispatcher Bus [employer] Trolley: JACOB Wootentool PCR Batteryon 51-09-0002Vciizmrs Description.FECESNormalUc West Chester HospitalComment on above: Performed By: #### UA, UMICAO #### [facility] [address] [place] [address] Dispatcher Bus And Trolley: JACOB Wootenurgical Pathologyon 83-53-2537Tkdteycj Pathology(NOTE) [id number] [facility] [email or web address] CONSULTING PATHOLOGISTS [facility] ANATOMIC PATHOLOGY [address] [place] [phone] SURGICAL PATHOLOGY CONSULTATION Patient Name: CARISSA SANTOS MR#: [id number] Specimen #[id number] Procedures/Addenda PERIPHERAL BLOOD REPORT Date Ordered: 10/04/2021 Status: Signed Out Date Complete: 10/04/2021 By: Horacio Vila M.D. Date Reported: 10/04/2021 INTERPRETATION Peripheral blood: - Normocytic anemia (hemoglobin 10.9 g/dL), hypoproliferative. Recommend correlation with ferritin and other iron studies. RESULTS-COMMENTS PERIPHERAL BLOOD STUDY CBC: Please see the electronic health record for CBC parameters ([id number], 10/01/21, 08:59). PLATELETS: Platelets show normal morphology. The platelet count is 141 k/microliter. LEUKOCYTES: White blood cells show normal morphology. There are no blasts. ERYTHROCYTES: Red blood cells show normal morphology. The absolute reticulocyte count is not increased. Note: The electronic health record is reviewed. Horacio Vila M.D. Source: A: PERIPHERAL BLOODNormalMercy Hoag Memorial Hospital PresbyterianComment on above: Performed By: #### UA, UMICAO #### [facility] [address] [place] [address] Dispatcher Bus And Trolley: Brandan Ugalde MDURINALYSIS WITH MICROSCOPICon 10-01-2021-[facility] Hospitaly HealthAmorphous, UANOT REPORTEDNoneMercy HealthBacteria, UANOT REPORTEDNoneMercy HealthBilirubin UrineNegativeNEGATIVEMercy HealthCasts UA0 TO 2 HYALINE Reference range defined for non-centrifuged specimen.[facility] HealthColor, UAYellow YellowMercy HealthCrystals, UANOT REPORTEDNone /HPFMercy HealthEpithelial Cells UA0 TO 2Mercy HealthGlucose, UrTRACEAbnormalNEGATIVEMercy HealthInterpretation and review of laboratory resultsAbnormalMercy HealthKetones Ql (U)Negative NEGATIVEMercy HealthLeukocyte esterase Test strip Ql (U)NegativeNEGATIVEMercy HealthMucus, UANOT REPORTEDNoneMercy HealthNitrite, UrineNegativeNEGATIVEMercy HealthOther Observations UANOT REPORTEDNOT REQ.Mercy HealthpH, UA5.5Mer[facility] Protein, UATRACEAbnormalNEGATIVEMercy HealthRBC, UA0 TO 2Mercy HealthRenal Epithelial, UANOT REPORTED0 /HPFMercy HealthSpecific [place], UA1.006Mercy HealthTrichomonas, UANOT REPORTEDNoneMercy HealthTurbidity UAClearClearMercy HealthUrine HgbSMALLAbnormalNEGATIVEMercy HealthUrobilinogen, UrineNormalNormal Mercy HealthWBC, UA2 TO 5Mercy HealthComment on above:CORRECTED ON 10/01 AT 1024: PREVIOUSLY REPORTED 5 TO 10Yeast, UAMANYAbnormalNoneMercy HealthMercy HealthUrinalysis w/ Microon 35-85-4397Sosoy RBC's0 TO 0Xxorwj5-1Yomrt [facility] Hospital PresbyterianComment on above:Performed By: #### UAMIC ####[employer] [address] [place], [place] [phone] Lab Director: Brandan Ugalde MDUrine WBC's2 TO 4Okdszz4-2YdtnkUc West Chester HospitalComment on above:Result Comment: CORRECTED ON 10/01 AT 1024: PREVIOUSLY REPORTED 5 TO 10 Performed By: #### UAMIC ####[facility] [address] [place], [place] [phone] Director: Brandan Ugalde MDYeastMANYAbnormalNONEMercTri-City Medical CenterComment on above:Performed By: #### UAMIC ####[facility] [address] [place], [place] [phone] Director: Brandan Ugalde MD-----NormalUc West Chester HospitalComment on above:Performed By: #### UAMIC ####[facility] [address] [place] [address] [phone] Director: Salena Wootenirubin, SemiQt,UrNegativeNormalNEGUc West Chester HospitalComment on above:Performed By: #### UAMIC ####[facility] [address] [place], [place] [phone] Director: Sintia Wootenood, UrineSMALLAbnormalNEGUc West Chester HospitalComment on above:Performed By: #### UAMIC ####[facility] [address] [place], [place] [phone] Director: DANIELLE Wootenasts0 TO 2 HYALINENormal0-8 [facility] HospitalComment on above:Result Comment: Reference range defined for non-centrifuged specimen.Performed By: #### UAMIC ####[facility] [address] [place], [place] [phone])[phone] Director: Hipolito Wootenty (U)ClearNormalCLEARUc West Chester HospitalComment on above:Performed By: #### UAMIC ####[facility] [address] [place], [place] [phone] Director: DANIELLE Wootenolor (U)YellowNormalYELMerHemet Global Medical CenterComment on above:Performed By: #### UAMIC ####[facility] [address] [place] [address] Lab Director: Brandan Ugalde MDEpithelial cells LM Ql (Urine sed)0 TO 4Mkrifs5-1AmyckUc West Chester HospitalComment on above:Performed By: #### UAMIC ####[facility] [address] [place] [address])[phone] Director: Brandan Ugalde MDGlucose Ql (U)TRACEAbnormalNEGUc West Chester HospitalComment on above:Performed By: #### UAMIC ####[facility] [address] [place] [address])[phone] Director: Brandan Ugalde MDKetones Ql (U)Negative NormalNEGUc West Chester HospitalComment on above:Performed By: #### UAMIC ####[facility] [address] [place] [address] Lab Director: Brandan Ugalde MDLeukocyte esterase Test strip Ql (U)NegativeNormal NEGUc West Chester HospitalComment on above:Performed By: #### UAMIC ####[facility] [address] [place] [address] Lab Director: Brandan Ugalde MDNitrite,UrNegativeNormalNEGUc [facility] Comment on above:Performed By: #### UAMIC ####[facility] [address] [place] [address] Lab Director: DENISA Wooten,Ur5.5Normal 5.0-8.0[facility] HospitalComment on above:Performed By: #### UAMIC ####[facility] [address]cf[address] [place] [address] Lab Director: DANIEL Wootenrotein Ql (U)TRACEAbnormalNEGUc West Chester HospitalComment on above:Performed By: #### UAMIC ####[facility] [address] [place] [address] Lab Director: JACOB Wootenpec. [place],Ur1.740Qmmdjp3.005-1.030[facility] HospitalComment on above:Performed By: #### UAMIC ####[facility] [address]ibol[address] [place] [address] Lab Director: Brandan Ugalde MDUrobilinogen,UrNormalNormal NORMUc West Chester HospitalComment on above:Performed By: #### UAMIC ####[facility] [address] [place] [address] Lab Director: Brandan Ugalde MDBLOOD GAS, VENOUSon 77-68-5547Qrvdd TestNOT REPORTEDMercy HealthCarboxyhemoglobin1.5 %0 - 5 %[facility] HealthComment on above: Reference Range: Non-Smokers 0-2% Average Smoker 2-4% Heavy Smoker <10% [id number] NOT PROVIDEDMercy HealthHCO3 (Bld) [Moles/Vol]17.6 mmol/LLow24 - 30 mmol/LMercy HealthInterpretation and review of laboratory resultsAbnormal Mercy HealthMethemoglobinNOT REPORTED0.0 - 1.5 %[facility]cy HealthModeNOT REPORTED Mercy HealthNegative Base Excess, Ven8.6 mmol/LHigh0.0 - 2.0 mmol/LMercy Health NOTIFICATIONNOT REPORTEDMercy HealthNOTIFICATION TIMENOT REPORTEDMercy HealthO2 Device/Flow/%NOT REPORTEDMercy HealthOxygen saturation in Blood55.1 %Low60.0 - 85.0 %Mercy HealthOxyhemoglobinNOT CYKRHHET30.0 - 98.0 %Mercy HealthpCO2, Earnest 41.1Mercy HealthpCO2, Earnest, Temp AdjNOT REPORTEDMercy HealthPeep/CpapNOT REPORTED [facility] HealthpH, Ven7.255LowMercy HealthpH, Earnest, Temp AdjNOT REPORTEDMercy Health pO2, Ven26.8LowMercy HealthpO2, Earnest, Temp AdjNOT REPORTEDMercy HealthPositive Base Excess, VenNOT REPORTED0.0 - 2.0 mmol/LMercy HealthPSVNOT REPORTEDMercy HealthPt Temp37.0Mer HealthPt. PositionNOT REPORTEDMercy HealthRespiratory RateNOT REPORTEDMer HealthSample SiteNOT REPORTEDMercy HealthSet RateNOT REPORTEDMer HealthText for RespiratoryNOT REPORTEDMi[facility] HealthTotal HbNOT UTJPEBEC97.0 - 16.0 g/dlMer HealthTotal RateNOT REPORTEDMer HealthVTNOT REPORTEDMer HealthMercy HealthBasic Metab w/rfx MGon 79-02-2306Yxlcc gap [Moles/Vol]17 mmol/LNormal9-17[facility] HospitalComment on above: Performed By: #### VBG #### [facility] YES.TAP [address] [place] [address] Dispatcher Bus [employer] Trolley: DANIELLE Wootenhloride [Moles/Vol]119 mmol/YTkto27-387TbawmUc West Chester HospitalComment on above:Performed By: #### VBG #### [facility] HospitalHotelements [address] [place] [address] Dispatcher Bus And Trolley: Brandan Ugalde MDCO2 [Moles/Vol]11 mmol/FZbo87-78EhjhgUc West Chester HospitalComment on above:Performed By: #### VBG #### [address] [address] Dispatcher [employer] Trolley: Brandan Ugalde MDPotassium [Moles/Vol]4.2 mmol/LNormal3.7-5.3 [facility] HospitalComment on above:Result Comment: SPECIMEN SLIGHTLY HEMOLYZED, RESULTS MAY BE ADVERSELY AFFECTED.Performed By: #### VBG #### [facility] [employer] [address] [place] [address] Dispatcher [employer]ley: Brandan Ugalde MDSodium [Moles/Vol]147 mmol/IRevp850-674KectuUc West Chester HospitalComment on above:Result Comment: TEST CONFIRMEDPerformed By: #### VBG #### [facility] [employer] [address] [place] [address] Dispatcher [employer]: Brandan Ugalde MD(cont.)[facility] Comment on above:Result Comment: Average GFR for 40-49 years old: 99 mL/min/1.73sq m Chronic Kidney Disease: <60 mL/min/1.73sq m Kidney failure: <15 mL/min/1.73sq m eGFR calculated using average adult body mass. Additional eGFR calculator available at: http://www.Valderm/multiple_crcl_2012.htmPerformed By: #### VBG #### [address] [address] Dispatcher [employer]: DANIELLE Wootenalcium [Mass/Vol]8.6 mg/dLNormal8.6-10.4[facility] HospitalComment on above:Performed By: #### VBG #### [address] [address] Dispatcher [employer] And [employer]: DANIELLE Wootenreatinine [Mass/Vol]2.06 mg/dLHigh0.50-0.90 [facility] HospitalComment on above:Performed By: #### VBG #### [facility] [employer] [address] [place] [address] Dispatcher [employer]: Brandan Ugalde MDGFR, Amer32 mL/minLow>60[facility] HospitalComment on above:Performed By: #### VBG #### [facility] [employer].T[employer] [address] [place] [address] Dispatcher [employer]: Brandan Ugalde MDGFR,non Amer26 mL/minLow>60[facility] HospitalComment on above:Performed By: #### VBG #### [facility] [employer].T[employer] [address] [place] [address] Dispatcher [employer]: Brandan Ugalde MDGlucose [Mass/Vol]160 mg/eRFqot65-45Ugaju [facility] Hospital PresbyterianComment on above:Performed By: #### VBG #### [facility] [address] [place] [address] Dispatcher Bus And Trolley: Brandan Ugalde MDUrea nitrogen [Mass/Vol]35 mg/dLHigh6-20[facility] HospitalComment on above:Performed By: #### VBG #### [facility] [address] [place] [address] Dispatcher [employer] T[employer]ley: RAJIV WootenN/CRE RatioNOT REPORTEDNormal9-20[facility] HospitalComment on above:Performed By: #### VBG #### [facility] [address] [place] [address] Dispatcher [employer] Trolley: JACOB Wootentaging:NOT REPORTEDNormalUc West Chester HospitalComment on above:Performed By: #### VBG #### [facility] [address] [place] [address] Dispatcher [employer]: Brandan Ugalde MDBasic Metabolic Panelon 53-00-8812Sjutt gap [Moles/Vol]13 mmol/L9 - 17 mmol/LMercy HealthCalcium [Mass/Vol]8.9 mg/dL8.6 - 10.4 mg/dLMercy HealthChloride [Moles/Vol]119 mmol/LHigh98 - 107 mmol/LMercy HealthCO2 [Moles/Vol]13 mmol/LLow20 - 31 mmol/LMercy HealthCreatinine [Mass/Vol] 2.05 mg/dLHigh0.50 - 0.90 mg/dLMercy HealthGFR Ahimtxbu55 mL/minLow>60 Mer[facility] HealthGFR Non- Xytrwura57 mL/minLow>60Mercy HealthGFR/1.73 sq M.predicted MDRD (S/P/Bld) [Vol rate/Area][facility], IncComment on above:Average GFR for 40-49 years old: 99 mL/min/1.73sq m Chronic Kidney Disease: <60 mL/min/1.73sq m Kidney failure: <15 mL/min/1.73sq m eGFR calculated using average adult body mass. Additional eGFR calculator available at: http://www.Valderm/Seawind_crcl_2012.htm GFR/1.73 sq M.predicted MDRD (S/P/Bld) [Vol rate/Area]NOT REPORTEDSelect [facility], Inc Glucose [Mass/Vol]162 mg/pZLuxq14 - 99 mg/dLSelect [facility] Specialty [facility], IncInterpretation and review of laboratory resultsAbnormalSelect [facility] Special[facility], IncPotassium [Moles/Vol]3.4 mmol/L Low3.7 - 5.3 mmol/LMercy HealthSodium [Moles/Vol]145 mmol/HWtjc011 - 144 mmol/L [facility], IncUrea nitrogen (BldV) [Mass/Vol]35 mg/dLHigh6 - 20 mg/dLSelect Medical Specialty [facility], Inc Urea nitrogen/Creatinine (Bld) [Mass ratio]NOT REPORTEDSelect [facility], IncBasic Metabolic Panel w/ Reflex to MGon 87-43-7247Pqzrm gap [Moles/Vol]17 mmol/L9 - 17 mmol/LMercy HealthCalcium [Mass/Vol]8.6 mg/dL8.6 - 10.4 mg/dLSelect [facility] Specialty [facility], Inc Chloride [Moles/Vol]119 mmol/LHigh98 - 107 mmol/LMercy HealthCO2 [Moles/Vol]11 mmol/LLow20 - 31 mmol/LMercy HealthCreatinine [Mass/Vol]2.06 mg/dLHigh0.50 - 0.90 mg/dLMiami [facility] Hospital HealthGFR Hwjqbubi74 mL/minLow>60Mercy HealthGFR Non- Icmklstb92 mL/minLow>60Mercy HealthGFR/1.73 sq M.predicted MDRD (S/P/Bld) [Vol rate/Area][facility], IncComment on above:Average GFR for 40-49 years old: 99 mL/min/1.73sq m Chronic Kidney Disease: <60 mL/min/1.73sq m Kidney failure: <15 mL/min/1.73sq m eGFR calculated using average adult body mass. Additional eGFR calculator available at: http://www.Valderm/multiple_crcl_2012.htm GFR/1.73 sq M.predicted MDRD (S/P/Bld) [Vol rate/Area]NOT REPORTEDSelect [facility], Inc Glucose [Mass/Vol]160 mg/yYQdym74 - 99 mg/dLSelect [facility] Specialty [facility], IncInterpretation and review of laboratory resultsAbnormalSelect [facility] Special[facility], IncPotassium [Moles/Vol]4.2 mmol/L 3.7 - 5.3 mmol/LMpremier health upper valley medical centery HealthComment on above:SPECIMEN SLIGHTLY HEMOLYZED, RESULTS MAY BE ADVERSELY AFFECTED.Sodium [Moles/Vol]147 mmol/UMavd956 - 144 mmol/LMpremier health upper valley medical centery HealthComment on above:TEST CONFIRMED Urea nitrogen (BldV) [Mass/Vol]35 mg/dLHigh6 - 20 mg/dLSelect [facility] Specialty [facility], IncUrea nitrogen/Creatinine (Bld) [Mass ratio]NOT REPORTEDAurora Health Care Bay Area Medical CenterBasic Metabolic Profon 09-30-2021(cont.)NormalUc West Chester HospitalComment on above:Result Comment: Average GFR for 40-49 years old: 99 mL/min/1.73sq m Chronic Kidney Disease: <60 mL/min/1.73sq m Kidney failure: <15 mL/min/1.73sq m eGFR calculated using average adult body mass. Additional eGFR calculator available at: http://www.[employer].Sembraire/multiple_crcl_2012.htmPerformed By: #### VBG #### [facility] [address] [place] [address] Dispatcher [employer]: Brandan Ugalde MDAnisimran gap [Moles/Vol]13 mmol/LNormal9-17[facility] HospitalComment on above:Performed By: #### VBG #### [facility] [place] [address] Dispatcher Bus And Trolley: DANIELLE Wootenalcium [Mass/Vol]8.9 mg/dLNormal8.6-10.4[facility] HospitalComment on above:Performed By: #### VBG #### [facility] [address] [place] [phone] Dispatcher [employer]ley: DANIELLE Wootenhloride [Moles/Vol]119 mmol/ZKjhb25-438XsxrgUc West Chester HospitalComment on above:Performed By: #### VBG #### [facility] [address] [place] [address] Dispatcher [employer]: DANIELLE WootenO2 [Moles/Vol]13 mmol/VDho27-52DnmsyUc West Chester HospitalComment on above:Performed By: #### VBG #### [address] [address] Dispatcher [employer]: DANIELLE Wootenreatinine [Mass/Vol]2.05 mg/dLHigh0.50-0.90 [facility] HospitalComment on above:Performed By: #### VBG #### [address] [address] Dispatcher [employer]: Brandan Ugalde MDGFR, Amer32 mL/minLow>60[facility] HospitalComment on above:Performed By: #### VBG #### [address] [address] Dispatcher [employer]: Brandan Ugalde MDGFR,non Amer27 mL/minLow>60[facility] HospitalComment on above:Performed By: #### VBG #### [address] [address] Dispatcher [employer]: Brandan Ugalde MDGlucose [Mass/Vol]162 mg/jBGitt32-35Whavh [facility] Hospital PresbyterianComment on above:Performed By: #### VBG #### [address] [address] Dispatcher [employer]: DANIEL Wootenotassium [Moles/Vol]3.4 mmol/LLow3.7-5.3Mpremier health upper valley medical centery [facility]ag Memorial Hospital PresbyterianComment on above:Performed By: #### VBG #### [address] [address] Dispatcher [employer]: JACOB Wootenodium [Moles/Vol]145 mmol/RDxdd817-138SseweUc West Chester HospitalComment on above:Performed By: #### VBG #### [facility] [address] [place] [address] Dispatcher [employer]ley: Brandan Ugalde MDUrea nitrogen [Mass/Vol]35 mg/dLHigh6-20[facility] HospitalComment on above:Performed By: #### VBG #### [facility] [address] [place] [address] Dispatcher Bus And Trolley: CHAVO Wooten/ABI Ramey REPORTEDNormal9-20[facility] HospitalComment on above:Performed By: #### VBG #### [facility] [place] [address] Dispatcher Bus And Trolley: JACOB Wootentaging:NOT REPORTEDNormalUc West Chester HospitalComment on above:Performed By: #### VBG #### [facility] [address] [place] [address] Dispatcher Bus And Trolley: Brandan Ugalde [facility] Auto Differentialon [id number] Eos # 0.03Mercy HealthAbsolute Immature Granulocyte0.05Mercy HealthAbsolute Lymph # 1.19Mercy HealthAbsolute Potter #0.43Mercy HealthBasophils (Bld) [#/Vol]10*3/uL [facility] HealthBasophils/100 WBC (Bld)0 %0 - 2 %[facility] HealthDifferential TypeNOT REPORTEDMercy HealthEosinophils/100 WBC (Bld)1 %1 - 4 %[facility]cy HealthHematocrit (Bld) [Volume fraction]30.9 %Low36.3 - 47.1 %[facility] Hemoglobin.gastrointestinal spec 1 Ql (Stl)10.2 g/dLLow11.9 - 15.1 g/dLMercy HealthImmature granulocytes/100 WBC (Bld)1 %Wplr6Cljwi HealthInterpretation and review of laboratory resultsAbnormalSelect [facility], IncLymphocytes/100 WBC (Bld)28 %24 - 43 %[facility] CenterH (RBC) [Entitic mass]29.1 pg25.2 - 33.5 pgFairfield Medical CenterHC (RBC) [Mass/Vol]33.0 g/dL28.4 - 34.8 g/dLFairfield Medical CenterV (RBC) [Entitic vol]88.0 fL82.6 - 102.9 fLSelect Medical Specialty Hospital - [facility], IncMonocytes/100 WBC (Bld)10 %3 - 12 %[facility], IncNRBC Automated0.00.0 per 100 WBCSelect Medical Specialty Hospital - [facility], IncPlatelet distribution width (Bld) [Ratio] 14.2 %11.8 - 14.4 %[facility], IncPlatelet EstimateNOT REPORTEDSelect [facility], IncPlatelet mean volume (Bld) [Entitic vol]8.5 fL8.1 - 13.5 fLSelect Medical Specialty Hospital - [facility], IncPlatelets (Bld) [#/Vol]70 10*3/uLLowSelect Medical Specialty Hospital [facility], IncRBC (Bld) [#/Vol]3.51 10*6/uLLow3.95 - 5.11 m/uL [facility], IncRBC (Bld) [#/Vol]NOT REPORTEDSelect [facility], IncSegmented neutrophils/100 WBC (Bld)60 %36 - 65 %[facility], IncSegs Absolute2.60[facility], IncWBC (Bld) [#/Vol] 4.3 10*3/uLSelect Medical Specialty Hospital [facility], IncWBC (Bld) [#/Vol]NOT REPORTEDAurora Health Care Bay Area Medical CenterCBC with Diffon [id number]. Basophil<0.56Xqjcyn1.00-0.20[facility] HospitalComment on above:Performed By: #### VBG #### [employer] [address] [place] [address] Dispatcher [employer]: Karma Wooten.Imm.Granulocyte0.05 k/uLNormal0.00-0.30[facility] HospitalComment on above:Performed By: #### VBG #### [facility] HospitalHotelements [address] [place] [id number] Dispatcher [employer]ley: Karma Wooten.Neutrophil (Seg)2.60 k/uLNormal1.50-8.10 [facility] HospitalComment on above:Performed By: #### VBG #### [address] [address] Dispatcher [employer]: Brandan Ugalde MDBasophils/100 WBC (Bld)0 %Normal0-2MSt. Joseph HospitalComment on above:Performed By: #### VBG #### [address] [address] Dispatcher [employer]: Brandan Ugalde MDEosinophils (Bld) [#/Vol]0.03 10*3/uLNormal 0.00-0.44[facility] HospitalComment on above:Performed By: #### VBG #### [address] [address] Dispatcher Bus And Trolley: GODFREY Wootenosinophils/100 WBC (Bld)1 %Normal1-4[facility] HospitalComment on above:Performed By: #### VBG #### [address] [address] Dispatcher [employer]: Brandan Ugalde MDErythrocyte distribution width (RBC) [Ratio]14.2 %Htrkok45.8-14.4[facility] HospitalComment on above:Performed By: #### VBG #### [address] [address] Dispatcher [employer]: Brandan Ugalde MDHematocrit (Bld) [Volume fraction]30.9 %Low 36.3-47.1MSt. Joseph HospitalComment on above:Performed By: #### VBG #### [address] [address] Dispatcher [employer]: Brandan Ugalde MDHemoglobin (Bld) [Mass/Vol]10.2 g/dLLow11.9-15.1 [facility] HospitalComment on above:Performed By: #### VBG #### [address] [address] Dispatcher [employer]: Brandan Ugalde MDImmature granulocytes/100 WBC (Bld)1 %Ybyx0PrpkhUc West Chester HospitalComment on above:Performed By: #### VBG #### [address] [address] Dispatcher [employer]: Brandan Ugalde MDLymphocytes (Bld) [#/Vol]1.19 10*3/uLNormal 1.10-3.70[facility] HospitalComment on above:Performed By: #### VBG #### [address] [address] Dispatcher Bus And Trolley: German Wootenmphocytes/100 WBC (Bld)28 %Tktmrh59-24WhhksUc West Chester HospitalComment on above:Performed By: #### VBG #### [place] [address] Dispatcher Bus And T[employer]ley: GAVIN WootenCH (RBC) [Entitic mass]29.1 cfFarsll15.2-33.5 [facility] HospitalComment on above:Performed By: #### VBG #### [place] [address] Dispatcher Bus And Trolley: GAVIN WootenCHC (RBC) [Mass/Vol]33.0 g/wJPwbkgv10.4-34.8 [facility] HospitalComment on above:Performed By: #### VBG #### [address] [address] Dispatcher Bus And Trolley: GAVIN WootenCV (RBC) [Entitic vol]88.0 yYCnboil82.6-102.9 [facility] HospitalComment on above:Performed By: #### VBG #### [address] [address] Dispatcher Bus And Trolley: GAVIN Wootenonocytes (Bld) [#/Vol]0.43 10*3/uLNormal 0.10-1.20[facility] HospitalComment on above:Performed By: #### VBG #### [address] [address] Dispatcher Bus And Trolley: GAVIN Wootenonocytes/100 WBC (Bld)10 %Normal3-12[facility] HospitalComment on above:Performed By: #### VBG #### [address] [address] Dispatcher Bus And Trolley: Marie Wootenutrophil (Seg)60 %Rcmnan74-72CjsscUc West Chester HospitalComment on above:Performed By: #### VBG #### [address] [address] Dispatcher Bus And [employer]ley: Brandan Ugalde MDNRBC Automated0.0 per 100 WBCNormal0.0[facility] HospitalComment on above:Performed By: #### VBG #### [address] [address] Dispatcher Bus And [employer]ley: Isabell Wooten mean volume (Bld) [Entitic vol]8.5 fL Normal8.1-13.5[facility] HospitalComment on above:Performed By: #### VBG #### [address] [address] Dispatcher Bus And Trolley: DANIEL Wootenlatelets (Bld) [#/Vol]70 10*3/wIYtk156-475ByhtsUc West Chester HospitalComment on above:Performed By: #### VBG #### [address] [address] Dispatcher Bus And Trolley: DENG WootenBC (Bld) [#/Vol]3.51 10*6/uLLow3.95-5.11[facility] PresbyterianComment on above:Performed By: #### VBG #### [address] [address] Dispatcher Bus And Trolley: MISTY Wooten (Bld) [#/Vol]4.3 10*3/uLNormal3.5-11.3[facility] PresbyterianComment on above:Performed By: #### VBG #### [address] [address] Dispatcher Bus And Trolley: Laxmi Wooten PerformedNOT REPORTEDNormalUc West Chester HospitalComment on above:Performed By: #### VBG #### [address] [address] Dispatcher Bus And [employer]rolley: Isabell Wooten CommentNOT REPORTEDNormalUc West Chester HospitalComment on above:Performed By: #### VBG #### [address] [address] Dispatcher Bus [employer]: BAKARI Wooten morphology finding Nom (Bld)NOT REPORTED NormalUc West Chester HospitalComment on above:Performed By: #### VBG #### [address] [address] Dispatcher Bus And Trolley: MISTY Wooten MorphologyNOT REPORTEDNormalUc West Chester HospitalComment on above:Performed By: #### VBG #### [address] [address] Dispatcher Bus And Trolley: Edmund Wooten,Urineon 62-82-7882Jvio,UrineSpecimen Description .CLEAN CATCH URINE Special Requests NOT REPORTED Culture YEAST, NOT SHENG ALBICANS OR SHENG DUBLINIENSIS 10 to 50,000 CFU/ML YEAST, NOT SHENG ALBICANS OR SHENG DUBLINIENSIS 10 to 50,000 CFU/ML DIFFERENT COLONY MORPHOLOGY Report Status FINAL 2AbnormalUc West Chester HospitalComment on above:Performed By: #### VBG #### [facility] [address] [place] [address] Dispatcher Bus And Trolley: Zhao Wooten, Urineon 19-79-4264Jbqlenig identified Cx Nom (U)YEAST, NOT SHENG ALBICANS OR SHENG DUBLINIENSIS 10 to 50,000 CFU/MLAbnormalMercy HealthBacteria identified Cx Nom (U)YEAST, NOT SHENG ALBICANS OR SHENG DUBLINIENSIS 10 to 50,000 CFU/ML DIFFERENT COLONY MORPHOLOGY AbnormalMercy HealthInterpretation and review of laboratory resultsAbnormalMercy HealthSpecial RequestsNOT REPORTEDMercy HealthSpecimen Description.CLEAN CATCH URINEMercy HealthMercy HealthElectrolyte Panelon 11-09-5575Pkucb gap [Moles/Vol] 11 mmol/L9 - 17 mmol/LMercy HealthChloride [Moles/Vol]115 mmol/LHigh98 - 107 mmol/LMercy HealthCO2 [Moles/Vol]16 mmol/LLow20 - 31 mmol/LMercy Health Interpretation and review of laboratory resultsAbnormalMercy HealthPotassium [Moles/Vol]3.5 mmol/LLow3.7 - 5.3 mmol/LMercy HealthSodium [Moles/Vol]142 mmol/L 135 - 144 mmol/LMercy HealthMercy HealthElectrolyteson 94-17-2326Ixeph gap [Moles/Vol]11 mmol/LNormal9-17[facility] HospitalComment on above: Performed By: #### VBG #### [facility] [address] [place] [address] Dispatcher Bus [employer]ley: DANIELLE Wootenhloride [Moles/Vol]115 mmol/IXrbk97-390NozoiUc West Chester HospitalComment on above:Performed By: #### VBG #### [facility] [address] [place] [phone] Dispatcher Bus And Trolley: Brandan Ugalde MDCO2 [Moles/Vol]16 mmol/OHgb35-44ZsgdyUc West Chester HospitalComment on above:Performed By: #### VBG #### [facility] [address] [place] [address] Dispatcher Bus And Trolley: Brandan Ugalde MDPotassium [Moles/Vol]3.5 mmol/LLow3.7-5.3MSt. Joseph HospitalComment on above:Performed By: #### VBG #### [facility] [address] [place] [address] Dispatcher Bus And Trolley: Brandan Ugalde MDSodium [Moles/Vol]142 mmol/SXiuozu507-234ZffpbUc West Chester HospitalComment on above:Performed By: #### VBG #### [address] [address] Dispatcher Bus And [employer]rolley: Brandan Ugalde MDHemoglobin A1Con 81-51-8413Dqyyjwn [Mass/Vol]390 mg/dLNormalUc West Chester HospitalComment on above:Result Comment: The ADA and AACC recommend providing the estimated average glucose result to permit better patient understanding of their HBA1c result.Performed By: #### VBG #### [address] [address] Dispatcher Bus And Trolley: Brandan Ugalde MDHbA1c (Bld) [Mass fraction]15.2 %High4.0-6.0 [facility] HospitalComment on above:Performed By: #### VBG #### [address] [address] Dispatcher Bus And Trolley: Brandan Ugalde MDGlucose [Mass/Vol]390 mg/dLSelect Medical Specialty Hospital - Boardman, IncComment on above:The ADA and AACC recommend providing the estimated average glucose result to permit better patient understanding of their HBA1c result. HbA1c (Bld) [Mass fraction]15.2 %High4.0 - 6.0 %[facility], IncInterpretation and review of laboratory resultsAbnormalMercy HealthMercy HealthMAGNESIUMon 43-17-1436Jbyiblinp [Mass/Vol]1.8 mg/dL1.6 - 2.6 mg/dLMiami Valley Hospital HealthMagnesiumon 07-38-1954Halevxeho [Mass/Vol]1.8 mg/dLNormal1.6-2.6[facility] PresbyterianComment on above:Performed By: #### VBG #### [facility] [address] [place], [place] [id number] Dispatcher Bus And Trolley: Chadwick Wooten Panel Informationon 00-01-2755Zqcts HealthPOC Glucose Fingerstickon 49-52-7588Qcwkyep [Mass/Vol]150 mg/yVVzhr25 - 105 mg/dL [facility], IncInterpretation and review of laboratory resultsAbHoward Young Medical CenterGlucose [Mass/Vol]177 mg/qDJcwa85 - 105 mg/dLSelect [facility], Inc Interpretation and review of laboratory resultsAbnoMendota Mental Health Institute Glucose [Mass/Vol]148 mg/xZNtwd56 - 105 mg/dLMiami Valley Hospital HealthInterpretation and review of laboratory resultsAbnoMendota Mental Health InstituteGlucose [Mass/Vol] 210 mg/kZPshq49 - 105 mg/dLMiami Valley Hospital HealthInterpretation and review of laboratory resultsAbPremier Health [facility] HealthSPECIMEN REJECTIONon 09-30-2021-NOT REPORTEDMerMultiCare Tacoma General HospitalOrdered TestCDPMUniversity Hospitals Elyria Medical CenterReason for RejectionUnable to perform testing: Specimen clotted.[facility], IncComment on above:GEORGINA MONTERO NOTIFIED Specimen source Nom (Unsp spec).[facility] Center - Wild RoseSpecimen Rejection on 90-04-0002Fkfyxg for rejectionUnable to perform testing: Specimen clotted. [facility] Regional HospitalComment on above:Result Comment: GEORGINA MONTERO NOTIFIEDPerformed By: #### VBG #### [facility] [address] [place], [place] [phone] Dispatcher Bus And Trolley: Devin Wooten of sample.[facility] Mercy HospitalComment on above:Performed By: #### VBG #### [facility] [address] [place] [address] Dispatcher Bus And Trolley: Brandan Ugalde MDTest orderedCDPNormalUc West Chester HospitalComment on above:Performed By: #### VBG #### [facility] [address] [place] [address] Dispatcher Bus And Trolley: Brandan Ugalde MD-----NOT REPORTEDNormalUc West Chester HospitalComment on above:Performed By: #### VBG #### [facility] [address] [place] [address] Dispatcher Bus And Trolley: Brandan Ugalde MDUrinalysis w/ Microon 93-37-1730Dwdapezvx sediment LM Ql (Urine sed)NOT REPORTEDSelect Medical [facility] Comment on above:Performed By: #### UAMIC ####[facility] [address] [place] [address] [phone] Director: Brandan Ugalde MDBacteriaNOT REPORTEDNormalFort Hamilton HospitalComment on above:Performed By: #### UAMIC ####[facility] [address] [place] [address] [phone] Director: DANIELLE Wootenrystals LM Nom (Urine sed)NOT REPORTED NormalFort Hamilton HospitalComment on above:Performed By: #### UAMIC ####[facility] [address] [place], [place] [phone] Director: Brandan Ugalde MDEpithelial, RenalNOT LFGPFMHWBjikoq8YrfajUc West Chester HospitalComment on above:Performed By: #### UAMIC ####[facility] [address] [place], [place] [phone] Director: GAVIN Wootenucus StrandsNOT REPORTEDNormalFort Hamilton Hospital Comment on above:Performed By: #### UAMIC ####[facility] [address] [place] [address] Lab Director: Brandan Ugalde MDOther ObservationsNOT REPORTEDNormalNREQUc West Chester HospitalComment on above:Performed By: #### UAMIC ####[facility] [address] [place] [address] Lab Director: Brandan Ugalde MDTrichomonasNOT REPORTEDNormal NONEUc West Chester HospitalComment on above:Performed By: #### UAMIC ####[facility] [address] [place] [address] Lab Director: Brandan Ugalde MDVenous Blood Gaseson 47-59-9432Aowt Temp.37.0NormMercy Health Fairfield HospitalComment on above:Performed By: #### VBG #### [facility] [address] [place] [address] Dispatcher Bus And Trolley: Kenji Wooten Hgb1.5 %Normal0-5[facility] HospitalComment on above:Result Comment: Reference Range: Non-Smokers 0-2% Average Smoker 2-4% Heavy Smoker <10%Performed By: #### VBG #### [facility] [address] [place] [address] Dispatcher Bus [employer] Trolley: Brandan Ugalde MDFIO2INFORMATION NOT PROVIDEDNormMercy Health Fairfield HospitalComment on above:Performed By: #### VBG #### [facility] [address] [place] [address] Dispatcher Bus And Trolley: Brandan Ugalde MDHCO3 (Bld) [Moles/Vol]17.6 mmol/KUzk04-96KjhbhUc West Chester HospitalComment on above:Performed By: #### VBG #### [facility] [address] [place] [address] Dispatcher Bus And Trolley: Brandan Ugalde MDNegative Base Excess8.6 mmol/LHigh0.0-2.0[facility] HospitalComment on above:Performed By: #### VBG #### [facility] [address] [place] [address] Dispatcher [employer]ley: Brandan Ugalde MDOxygen (Bld) [Partial pressure]26.8 mm[Hg]Low 30-50[facility] HospitalComment on above:Performed By: #### VBG #### [address] [address] Dispatcher Bus And Trolley: Brandan Ugalde MDOxygen saturation in Blood55.1 %Low60.0-85.0 [facility] HospitalComment on above:Performed By: #### VBG #### [address] [address] Dispatcher [employer]rolley: Daniel WootenCO241.6Vkkttr15-03ZqbtlUc West Chester HospitalComment on above:Performed By: #### VBG #### [address] [address] Dispatcher Bus And Trolley: Daniel WootenH (Bld)7.255 [pH]Low7.320-7.420[facility] HospitalComment on above:Performed By: #### VBG #### [address] [address] Dispatcher [employer]rolley: Miguel Wooten TestNOT REPORTEDNormalUc West Chester HospitalComment on above:Performed By: #### VBG #### [address] [address] Dispatcher [employer] And [employer]: GAVIN WootenethemoglobinNOT REPORTEDNormal0.0-1.5[facility] HospitalComment on above:Performed By: #### VBG #### [address] [address] Dispatcher Bus And Trolley: GAVIN WootenodeNOT REPORTEDNormalMercy Hoag Memorial Hospital PresbyterianComment on above:Performed By: #### VBG #### [address] [address] Dispatcher [employer]: Brandan Ugalde MDNotification TimeNOT REPORTEDNormalMercy Hoag Memorial Hospital PresbyterianComment on above:Performed By: #### VBG #### [address] [address] Dispatcher Bus And [employer]: Brandan Ugalde MDNotification:NOT REPORTEDNormalMercy Hoag Memorial Hospital PresbyterianComment on above:Performed By: #### VBG #### [address] [address] Dispatcher [employer]: Brandan Ugalde MDO2 Device/Flow/%NOT REPORTEDNormalUc West Chester HospitalComment on above:Performed By: #### VBG #### [address] [address] Dispatcher [employer]: Brandan Ugalde MDOxyhemoglobinNOT UDBBLEJCLzinlt52.0-98.0[facility] HospitalComment on above:Performed By: #### VBG #### [address] [address] Dispatcher Bus And Trolley: DANIEL Wootenco2 Adj'd for Temp.NOT VBOIJOXQJalxoh86-03MakvgUc West Chester HospitalComment on above:Performed By: #### VBG #### [facility] [address] [address] Dispatcher Bus And Trolley: DANIEL WootenEEP/CPAPNOT REPORTEDNormalUc West Chester HospitalComment on above:Performed By: #### VBG #### [facility] [address] [address] Dispatcher Bus And Trolley: Daniel Wooten Adjst'd for Temp.NOT REPORTEDNormal 7.320-7.420MerMercy Emergency Departmentent Medical CenterComment on above:Performed By: #### VBG #### [facility] [address] [place] [address] Dispatcher Bus And Trolley: Ivette Wooten Adj'd for Temp.NOT TCMYWOECRungux90-87EipziUc West Chester HospitalComment on above:Performed By: #### VBG #### [facility] [address] [place] [address] Dispatcher Bus And Trolley: Dorita Wootentive Base ExcessNOT REPORTEDNormal0.0-2.0 [facility] HospitalComment on above:Performed By: #### VBG #### [facility] [address] [place] [address] Dispatcher Bus And Trolley: DANIEL WootenSVNOT REPORTEDNormalUc West Chester HospitalComment on above:Performed By: #### VBG #### [address] [address] Dispatcher Bus And Trolley: Pat Wooten. PositionNOT REPORTEDNormMercy Health Fairfield HospitalComment on above:Performed By: #### VBG #### [facility] [address] [place] [address] Dispatcher [employer]rolley: Bakari Wooten RateNOT REPORTEDNormalUc West [facility] HospitalComment on above:Performed By: #### VBG #### [facility] [address] [place] [address] Dispatcher Bus [employer]rolley: Stanislaw Wooten RateNOT REPORTEDNormalUc West [facility] HospitalComment on above:Performed By: #### VBG #### [facility] [address] [place] [address] Dispatcher Bus [employer] Trolley: JACOB Wootenite DrawnNOT REPORTEDNormalUc West Chester HospitalComment on above:Performed By: #### VBG #### [facility] [place] [address] Dispatcher Bus And Trolley: Brandan Ugalde MDText for RespiratoryNOT REPORTEDrmMercy Health Fairfield HospitalComment on above:Performed By: #### VBG #### [facility] [address] [place] [address] Dispatcher Bus And Trolley: Constantine Wooten HbNOT AXIAJYNYOctaph17.0-16.0[facility] HospitalComment on above:Performed By: #### VBG #### [facility] [place] [address] Dispatcher Bus And Trolley: Constantine Wooten RateNOT REPORTEDrmalUc West Chester HospitalComment on above:Performed By: #### VBG #### [facility] HospitalHotelements [address] [place] [address] Dispatcher Bus And Trolley: Brandan Ugalde MDVTBRETT REPORTEDrmMercy Health Fairfield HospitalComment on above:Performed By: #### VBG #### [facility] [address] [place] [address] Dispatcher Bus And Trolley: Drew Wooten Metabolic Panelon 72-82-4049Utgdm gap [Moles/Vol]11 mmol/L9 - 17 mmol/LMercy HealthCalcium [Mass/Vol]7.8 mg/dLLow8.6 - 10.4 mg/dLMercy HealthChloride [Moles/Vol]106 mmol/L98 - 107 mmol/LMercy Health CO2 [Moles/Vol]12 mmol/LLow20 - 31 mmol/LMercy HealthCreatinine [Mass/Vol]2.3 mg/dLHigh0.50 - 0.90 mg/dLMercy HealthGFR Shtavxzv48 mL/minLow>60Mercy HealthGFR Non- Zzoblwop91 mL/minLow>60Mercy HealthGFR/1.73 sq M.predicted MDRD (S/P/Bld) [Vol rate/Area][facility], IncComment on above:Average GFR for 40- 49 years old: 99 mL/min/1.73sq m Chronic Kidney Disease: <60 mL/min/1.73sq m Kidney failure: <15 mL/min/1.73sq m eGFR calculated using average adult body mass. Additional eGFR calculator available at: http://www.Valderm/multiple_crcl_2012.htm GFR/1.73 sq M.predicted MDRD (S/P/Bld) [Vol rate/Area]NOT REPORTEDSelect [facility], Inc Glucose [Mass/Vol]301 mg/yFEctq94 - 99 mg/dLMiami Valley Hospital HealthInterpretation and review of laboratory resultsAbnormalMiami Valley Hospital HealthPotassium [Moles/Vol]4.1 mmol/L 3.7 - 5.3 mmol/LMercy HealthComment on above:SPECIMEN SLIGHTLY HEMOLYZED, RESULTS MAY BE ADVERSELY AFFECTED.Sodium [Moles/Vol]129 mmol/GJlc169 - 144 mmol/LMercy HealthUrea nitrogen (BldV) [Mass/Vol]32 mg/dLHigh6 - 20 mg/dLMiami Valley Hospital HealthUrea nitrogen/Creatinine (Bld) [Mass ratio]NOT REPORTEDMiami Valley Hospital HealthAnion gap [Moles/Vol]11 mmol/L9 - 17 mmol/LMercy HealthCalcium [Mass/Vol]8.0 mg/dLLow 8.6 - 10.4 mg/dLMiami Valley Hospital HealthChloride [Moles/Vol]110 mmol/LHigh98 - 107 mmol/L [facility] HealthCO2 [Moles/Vol]12 mmol/LLow20 - 31 mmol/LMercy HealthCreatinine [Mass/Vol]2.29 mg/dLHigh0.50 - 0.90 mg/dLMercy HealthGFR Fjfvjwbd85 mL/minLow>60Mercy HealthGFR Non- Pyaxluyx70 mL/minLow>60Mer Health GFR/1.73 sq M.predicted MDRD (S/P/Bld) [Vol rate/Area][facility], IncComment on above:Average GFR for 40-49 years old: 99 mL/min/1.73sq m Chronic Kidney Disease: <60 mL/min/1.73sq m Kidney failure: <15 mL/min/1.73sq m eGFR calculated using average adult body mass. Additional eGFR calculator available at: http://www.Valderm/multiple_crcl_2012.htm GFR/1.73 sq M.predicted MDRD (S/P/Bld) [Vol rate/Area]NOT REPORTEDMi[facility] [employer] Glucose [Mass/Vol]217 mg/oTOrqu89 - 99 mg/dLMiami Valley Hospital HealthInterpretation and review of laboratory resultsAbnormalMer HealthPotassium [Moles/Vol]3.4 mmol/L Low3.7 - 5.3 mmol/LMercy HealthSodium [Moles/Vol]133 mmol/WDzu452 - 144 mmol/L [facility], IncUrea nitrogen (BldV) [Mass/Vol]32 mg/dLHigh6 - 20 mg/dLSelect [facility]ty [facility], Inc Urea nitrogen/Creatinine (Bld) [Mass ratio]NOT REPORTEDMer HealthAnion gap [Moles/Vol]7 mmol/LLow9 - 17 mmol/LMercy HealthCalcium [Mass/Vol]8.0 mg/dLLow8.6 - 10.4 mg/dLMercy HealthChloride [Moles/Vol]113 mmol/LHigh98 - 107 mmol/LMercy HealthCO2 [Moles/Vol]13 mmol/LLow20 - 31 mmol/LMercy HealthCreatinine [Mass/Vol] 2.39 mg/dLHigh0.50 - 0.90 mg/dLMercy HealthGFR Mzcrbwdz77 mL/minLow>60 Mercy HealthGFR Non- Pedvfnjf74 mL/minLow>60Mercy HealthGFR/1.73 sq M.predicted MDRD (S/P/Bld) [Vol rate/Area][facility], IncComment on above:Average GFR for 40-49 years old: 99 mL/min/1.73sq m Chronic Kidney Disease: <60 mL/min/1.73sq m Kidney failure: <15 mL/min/1.73sq m eGFR calculated using average adult body mass. Additional eGFR calculator available at: http://www.Valderm/multiple_crcl_2012.htm GFR/1.73 sq M.predicted MDRD (S/P/Bld) [Vol rate/Area]NOT REPORTEDMiami Valley Hospital [facility] Glucose [Mass/Vol]127 mg/rCFsaa86 - 99 mg/dLMer HealthPotassium [Moles/Vol]3.7 mmol/L3.7 - 5.3 mmol/LMercy HealthComment on above:SPECIMEN SLIGHTLY HEMOLYZED, RESULTS MAY BE ADVERSELY AFFECTED.Sodium [Moles/Vol]133 mmol/LWmo065 - 144 mmol/LMercy HealthUrea nitrogen (BldV) [Mass/Vol]32 mg/dLHigh6 - 20 mg/dLMiami Valley Hospital HealthUrea nitrogen/Creatinine (Bld) [Mass ratio]NOT REPORTEDUC Medical Centersi Metabolic Profon 09-29-2021(cont.)NormalUc West Chester HospitalComment on above:Result Comment: Average GFR for 40-49 years old: 99 mL/min/1.73sq m Chronic Kidney Disease: <60 mL/min/1.73sq m Kidney failure: <15 mL/min/1.73sq m eGFR calculated using average adult body mass. Additional eGFR calculator available at: http://www.Valderm/multiple_crcl_2012.htmPerformed By: #### EMILIO CASTANEDA BMP #### [facility] [address] [place] [address] Dispatcher [employer]: Brandan Ugalde MDAnion gap [Moles/Vol]11 mmol/LNormal9-17[facility] HospitalComment on above:Performed By: #### EMILIO CASTANEDA, BMP #### [facility] [address] [place] [address] Dispatcher Bus And Trolley: DANIELLE Wootenalcium [Mass/Vol]7.8 mg/dLLow8.6-10.4[facility] HospitalComment on above:Performed By: #### EMILIO CASTANEDA, BMP #### [employer] [facility] [place] [address] Dispatcher Bus And Trolley: DANIELLE Wootenhloride [Moles/Vol]106 mmol/PCvxkvn97-956TpkhkUc West Chester HospitalComment on above:Performed By: #### EMILIO CASTANEDA, BMP #### [facility] [address] [place] [address] Dispatcher [employer] And Trolley: DANIELLE WootenO2 [Moles/Vol]12 mmol/PNsc44-32KiilzUc West Chester HospitalComment on above:Performed By: #### EMILIO CASTANEDA, BMP #### [facility] [address] [place] [address] Dispatcher Bus And Trolley: DANIELLE Wootenreatinine [Mass/Vol]2.30 mg/dLHigh0.50-0.90 [facility] HospitalComment on above:Performed By: #### LEONEL IPF, BMP #### [facility] [address] [place] [address] Dispatcher [employer]: Brandan Ugalde MDGFR, Amer28 mL/minLow>60[facility] HospitalComment on above:Performed By: #### LEONEL IPF, BMP #### [facility] [address] [place] [address] Dispatcher Bus And [employer]rolley: BRAIN Wooten,non Amer23 mL/minLow>60[facility] HospitalComment on above:Performed By: #### LEONEL IPF, BMP #### [facility] [address] [place] [address] Dispatcher [employer] And Trolley: Brandan Ugalde MDGlucose [Mass/Vol]301 mg/cEAmhu41-21IlcwySt. Joseph HospitalComment on above:Performed By: #### LEONEL IPF, BMP #### [facility] [address] [place] [address] Dispatcher Bus And Trolley: Brandan Ugalde MDPotassium [Moles/Vol]4.1 mmol/LNormal3.7-5.3 [facility] HospitalComment on above:Result Comment: SPECIMEN SLIGHTLY HEMOLYZED, RESULTS MAY BE ADVERSELY AFFECTED.Performed By: #### LEONEL IPF, BMP #### [facility] [address] [place] [address] Dispatcher Bus And Trolley: JACOB Wootenodium [Moles/Vol]129 mmol/LQaw021-410PtoyfUc West Chester HospitalComment on above:Performed By: #### CDP, IPF, BMP #### [facility] [address] [place] [address] Dispatcher [employer] And [employer]rolley: Brandan Ugalde MDUrea nitrogen [Mass/Vol]32 mg/dLHigh6-20[facility] HospitalComment on above:Performed By: #### CDP, IPF, BMP #### [facility] [address] [place] [address] Dispatcher Bus And Trolley: CHAVO Wooten/CRE RatioNOT REPORTEDNoal9-20[facility] HospitalComment on above:Performed By: #### CDP, IPF, BMP #### [facility] [address] [place] [address] Dispatcher Bus And Trolley: JACOB Wootentaging:NOT REPORTEDProMedica Defiance Regional HospitalComment on above:Performed By: #### CDP, IPF, BMP #### [facility] [address] [place] [address] Dispatcher Bus And Trolley: Brandan Ugalde MD(cont.)[facility] Comment on above:Result Comment: Average GFR for 40-49 years old: 99 mL/min/1.73sq m Chronic Kidney Disease: <60 mL/min/1.73sq m Kidney failure: <15 mL/min/1.73sq m eGFR calculated using average adult body mass. Additional eGFR calculator available at: http://www.[employer].Sembraire/multiple_crcl_2012.htmPerformed By: #### CDP, IPF, BMP #### [facility] [address] [place] [address] Dispatcher [employer] And Trolley: Oksana Wooten gap [Moles/Vol]11 mmol/LNormal9-17[facility] HospitalComment on above:Performed By: #### CDP, IPF, BMP #### [facility] [address] [place] [address] Dispatcher [employer] And Trolley: DANIELLE Wootenalcium [Mass/Vol]8.0 mg/dLLow8.6-10.4Uc [facility] HospitalComment on above:Performed By: #### LEONEL IPF, BMP #### [facility] [address] [place] [address] Dispatcher [employer]: Brandan Ugalde MDChloride [Moles/Vol]110 mmol/TSvzq05-127FjhykUc West Chester HospitalComment on above:Performed By: #### LEONEL, IPF, BMP #### [facility] [address] [place] [address] Dispatcher [employer]: Brandan Ugalde MDCO2 [Moles/Vol]12 mmol/HRzn57-91NgtawUc West Chester HospitalComment on above:Performed By: #### LEONEL IPF, BMP #### [facility] [address] [place] [address] 26566 Dispatcher [employer]: DANIELLE Wootenreatinine [Mass/Vol]2.29 mg/dLHigh0.50-0.90 [facility] HospitalComment on above:Performed By: #### LEONEL, IPF, BMP #### [facility] [address] [place] [address]99 Dispatcher [employer]: Brandan Ugalde MDGFR, Amer28 mL/minLow>60[facility] HospitalComment on above:Performed By: #### LEONEL, IPF, BMP #### [facility] [address] [place] [address] 6[address] Dispatcher [employer]: Brandan Ugalde MDGFR,non Amer23 mL/minLow>60[facility] HospitalComment on above:Performed By: #### LEONEL, IPF, BMP #### [facility] [address] [place] [address] 31290 Dispatcher [employer]: Brandan Ugalde MDGlucose [Mass/Vol]217 mg/pBCcbs52-30McfrcSt. Joseph HospitalComment on above:Performed By: #### CDP, IPF, BMP #### [facility] [place] [address] Dispatcher [employer]: DANIEL Wootenotassium [Moles/Vol]3.4 mmol/LLow3.7-5.3[facility] PresbyterianComment on above:Performed By: #### CDP, IPF, BMP #### [facility] [address] [place] [address] 15863 Dispatcher [employer]: Brandan Ugalde MDSodium [Moles/Vol]133 mmol/NOon436-342LfzneUc West Chester HospitalComment on above:Performed By: #### CDP, IPF, BMP #### [facility] [address] [place] [address] 03953 Dispatcher [employer]: Brandan Ugalde MDUrea nitrogen [Mass/Vol]32 mg/dL26 [address] StreetComment on above:Performed By: #### CDP, IPF, BMP #### [facility] [address] [place] [address]19 Dispatcher [employer]: CHAVO Wooten/ABI Ramey REPORTEDNo46 Young StreetComment on above:Performed By: #### CDP, IPF, BMP #### [facility] [address] [place] [address] 07626 Dispatcher [employer]: JACOB Wootentaging:NOT REPORTEDNormalUc West Chester HospitalComment on above:Performed By: #### CDP, IPF, BMP #### [facility] [address] [place] [address]12 Dispatcher [employer]: Brandan Ugalde MD(cont.)[facility] Comment on above:Result Comment: Average GFR for 40-49 years old: 99 mL/min/1.73sq m Chronic Kidney Disease: <60 mL/min/1.73sq m Kidney failure: <15 mL/min/1.73sq m eGFR calculated using average adult body mass. Additional eGFR calculator available at: http://www.[employer].com/multiple_crcl_2012.htmPerformed By: #### EMILIO CASTANEDA, BMP #### [address] [address] Dispatcher [employer]: Brandan Uglade MDAnion gap [Moles/Vol]7 mmol/LLow9-17[facility] HospitalComment on above:Performed By: #### LEONEL IPF, BMP #### [address] [address] Dispatcher [employer]: Brandan Ugalde MDCalcium [Mass/Vol]8.0 mg/dLLow8.6-10.4[facility] HospitalComment on above:Performed By: #### EMILIO CASTANEDA, BMP #### [address] [address] Dispatcher [employer]: Brandan Ugalde MDChloride [Moles/Vol]113 mmol/NQpld19-488WrudmUc West Chester HospitalComment on above:Performed By: #### LEONEL IPF, BMP #### [address] [address] Dispatcher [employer]: Brandan Ugalde MDCO2 [Moles/Vol]13 mmol/ZXye67-83FjemwUc West Chester HospitalComment on above:Performed By: #### LEONEL IPF, BMP #### [address] [address] Dispatcher [employer]: DANIELLE Wootenreatinine [Mass/Vol]2.39 mg/dLHigh0.50-0.90 [facility] HospitalComment on above:Performed By: #### LEONEL IPF, BMP #### [facility] [address] [place] [address] Dispatcher [employer]: Brandan Ugalde MDGFR, Amer27 mL/minLow>60[facility] HospitalComment on above:Performed By: #### CDP, IPF, BMP #### [facility] [address] [place] [address] Dispatcher [employer]: Brandan Ugalde MDGFR,non Amer22 mL/minLow>60[facility] HospitalComment on above:Performed By: #### CDP, IPF, BMP #### [facility] [address] [place] [address] Dispatcher [employer]: Brandan Ugalde MDGlucose [Mass/Vol]127 mg/mUAjhs62-68SuhtiSt. Joseph HospitalComment on above:Performed By: #### LEONEL IPF, BMP #### [facility] [address] [place] [address] Dispatcher [employer]: DANIEL Wootenotassium [Moles/Vol]3.7 mmol/LNormal3.7-5.3 [facility] HospitalComment on above:Result Comment: SPECIMEN SLIGHTLY HEMOLYZED, RESULTS MAY BE ADVERSELY AFFECTED.Performed By: #### LEONEL, IPF, BMP #### [address] [address] Dispatcher [employer]: JACOB Wootenodium [Moles/Vol]133 mmol/KZoj282-421AlxuhUc West Chester HospitalComment on above:Performed By: #### LEONEL, IPF, BMP #### [facility] [address] [place] [address]14 Dispatcher [employer]: Brandan Ugalde MDUrea nitrogen [Mass/Vol]32 mg/dLHigh6-20[facility] HospitalComment on above:Performed By: #### LEONEL, IPF, BMP #### [facility] [address] [place] [address] Dispatcher [employer]: Brandan Ugalde MDBUN/CRE EspinozaOT REPORTEDNormal9-20[facility] HospitalComment on above:Performed By: #### CDP, IPF, BMP #### [facility] [address] [place] [address]88 Dispatcher [employer]: JACOB Wootentaging:NOT REPORTEDNormalUc West Chester HospitalComment on above:Performed By: #### EMILIO CASTANEDA, BMP #### [facility] [address] [place] [address] 9[address]83 Dispatcher [employer]: Brandan Ugalde MD(cont.)[facility] Comment on above:Result Comment: Average GFR for 40-49 years old: 99 mL/min/1.73sq m Chronic Kidney Disease: <60 mL/min/1.73sq m Kidney failure: <15 mL/min/1.73sq m eGFR calculated using average adult body mass. Additional eGFR calculator available at: http://www.[employer]/multiple_crcl_2012.htmPerformed By: #### EMILIO CASTANEDA, BMP #### [facility] [address] [place] [address] 78478 Dispatcher [employer]: Brandan Ugalde MDAnion gap [Moles/Vol]6 mmol/LLow9-17[facility] HospitalComment on above:Performed By: #### EMILIO CASTANEDA, BMP #### [facility] [address] [place] [address]25 Dispatcher [employer]: Brandan Ugalde MDCalcium [Mass/Vol]8.5 mg/dLLow8.6-10.4[facility] HospitalComment on above:Performed By: #### LEONEL IPF, BMP #### [facility] [address] [place] [address] 02084 Dispatcher [employer]: Brandan Ugalde MDChloride [Moles/Vol]110 mmol/KPyid67-153QgvdnUc West Chester HospitalComment on above:Performed By: #### EMILIO CASTANEDA, BMP #### [facility] [address] [place] [address]708 Dispatcher [employer]: Brandan Ugalde MDCO2 [Moles/Vol]15 mmol/RTwt03-83UkpglUc West Chester HospitalComment on above:Performed By: #### CDP, IPF, BMP #### [facility] [address] [place] [address] 61893 Dispatcher [employer]: DANIELLE Wootenreatinine [Mass/Vol]2.24 mg/dLHigh0.50-0.90 [facility] HospitalComment on above:Performed By: #### CDP, IPF, BMP #### [facility] [address] [place] [address] Dispatcher [employer]: Brandan Ugalde MDGFR, Amer29 mL/minLow>60[facility] HospitalComment on above:Performed By: #### LEONEL, IPF, BMP #### [facility] [address] [place] [address]686 Dispatcher [employer]: BRAIN Wooten,non Amer24 mL/minLow>60[facility] HospitalComment on above:Performed By: #### LEONEL, IPF, BMP #### [facility] [address] [place] [address] 86564 Dispatcher [employer]: Brandan Ugalde MDGlucose [Mass/Vol]156 mg/fJBhvy01-22Owrrv [facility] PresbyterianComment on above:Performed By: #### LEONEL, IPF, BMP #### [facility] [address] [place] [address] 27706 Dispatcher [employer]: Brandan Ugalde MDPotassium [Moles/Vol]3.4 mmol/LLow3.7-5.3Mpremier health upper valley medical centery Hoag Memorial Hospital PresbyterianComment on above:Performed By: #### CDP, IPF, BMP #### [facility] [address] [place] [address]69 Dispatcher [employer]: Brandan Ugalde MDSodium [Moles/Vol]131 mmol/ZMnw146-522LebrmHemet Global Medical CenterComment on above:Performed By: #### CDP, IPF, BMP #### [facility] [address] [place] [address] Dispatcher [employer]: Brandan Ugalde MDUrea nitrogen [Mass/Vol]32 mg/dLHigh6-20[facility] HospitalComment on above:Performed By: #### LEONEL, IPF, BMP #### [facility] [address] [place], [place] [phone] Dispatcher [employer]: Brandan Ugalde MDBlood Gas, Venouson [id number] TestNOT REPORTEDMercy HealthCarboxyhemoglobin1.2 %0 - 5 %[facility] HealthComment on above: Reference Range: Non-Smokers 0-2% Average Smoker 2-4% Heavy Smoker <10% [id number] NOT PROVIDEDMercy HealthHCO3 (Bld) [Moles/Vol]15.2 mmol/LLow24 - 30 mmol/LMercy HealthInterpretation and review of laboratory resultsAbnormal [facility] HealthMethemoglobinNOT REPORTED0.0 - 1.5 %[facility] HealthModeNOT REPORTED [facility] HealthNegative Base Excess, Ven10.6 mmol/LHigh0.0 - 2.0 mmol/LMercy Health NOTIFICATIONNOT REPORTEDMercy HealthNOTIFICATION TIMENOT REPORTEDMercy HealthO2 Device/Flow/%NOT REPORTEDMercy HealthOxygen saturation in Blood80.9 %60.0 - 85.0 %[facility] HealthOxyhemoglobinNOT QURHFCJP07.0 - 98.0 %[facility] HealthpCO2, Ven34.9Low [facility] HealthpCO2, Earnest, Temp AdjNOT REPORTEDMercy HealthPeep/CpapNOT REPORTED [facility] HealthpH, Ven7.261LowMercy HealthpH, Earnest, Temp AdjNOT REPORTEDMercy Health pO2, Ven39.5[facility] HealthpO2, Earnest, Temp AdjNOT REPORTEDMercy HealthPositive Base Excess, VenNOT REPORTED0.0 - 2.0 mmol/LMercy HealthPSVNOT REPORTEDMercy HealthPt Temp37.0[facility] HealthPt. PositionNOT REPORTEDMercy HealthRespiratory RateNOT REPORTEDMercy HealthSample SiteNOT REPORTEDMercy HealthSet RateNOT REPORTEDMercy HealthText for RespiratoryNOT REPORTEDMercy HealthTotal HbNOT CTRIZIVT76.0 - 16.0 g/dlMercy HealthTotal RateNOT REPORTEDMer HealthVTNOT REPORTEDAurora Health Care Bay Area Medical CenterCBC auto differentialon [id number] Eos #<0.03Mer HealthAbsolute Immature Granulocyte0.07Mer HealthAbsolute Lymph #1.85Mer HealthAbsolute Potter #0.79Mer HealthBasophils (Bld) [#/Vol]10*3/uLMer Health Basophils/100 WBC (Bld)0 %0 - 2 %[facility], IncDifferential TypeNOT REPORTEDMer HealthEosinophils/100 WBC (Bld)0 %Low1 - 4 %[facility], IncHematocrit (Bld) [Volume fraction]34.1 %Low36.3 - 47.1 %[facility], IncHemoglobin.gastrointestinal spec 1 Ql (Stl)10.8 g/dLLow11.9 - 15.1 g/dLMerMultiCare Tacoma General HospitalImmature granulocytes/100 WBC (Bld)1 %Dtnv4Fkogd HealthInterpretation and review of laboratory resultsAbnormal [facility], IncLymphocytes/100 WBC (Bld)21 %Low24 - 43 %[facility] CenterH (RBC) [Entitic mass]28.1 pg25.2 - 33.5 pgFairfield Medical CenterHC (RBC) [Mass/Vol]31.7 g/dL 28.4 - 34.8 g/dLFairfield Medical CenterV (RBC) [Entitic vol]88.6 fL82.6 - 102.9 fLMiami Valley Hospital HealthMonocytes/100 WBC (Bld)9 %3 - 12 %[facility], IncNRBC Automated0.00.0 per 100 WBCMiami Valley Hospital HealthPlatelet distribution width (Bld) [Ratio]14.0 %11.8 - 14.4 %[facility] HealthPlatelet EstimateNOT REPORTEDMiami Valley Hospital HealthPlatelet mean volume (Bld) [Entitic vol]9.0 fL8.1 - 13.5 fLMiami Valley Hospital HealthPlatelets (Bld) [#/Vol]107 10*3/uL LowMiami Valley Hospital HealthRBC (Bld) [#/Vol]3.85 10*6/uLLow3.95 - 5.11 m/uLMer HealthRBC (Bld) [#/Vol]NOT REPORTEDMercy HealthSegmented neutrophils/100 WBC (Bld)69 %High 36 - 65 %[facility], IncSe Absolute6.03[facility], IncWBC (Bld) [#/Vol]8.8 10*3/uL [facility], IncWBC (Bld) [#/Vol]NOT REPORTEDAurora Health Care Bay Area Medical CenterCBC with Diffon [id number]. Basophil<0.34Cxigib4.00-0.20[facility] Comment on above:Performed By: #### LEONEL IPF, BMP #### [facility] [address] [place] [address] Dispatcher [employer]: MDAbs. Sugar Eosinophil<0.46Qrbffh2.00-0.44[facility] HospitalComment on above:Performed By: #### LEONEL IPF, BMP #### [facility] [address] [place] [address] Dispatcher [employer]: MDAbs. SugarImm.Granulocyte0.07 k/uLNormal0.00-0.30[facility] HospitalComment on above:Performed By: #### LEONEL IPF, BMP #### [facility] [address] [place] [address] Dispatcher [employer]: MDAbs. SugarNeutrophil (Seg)6.03 k/uLNormal1.50-8.10 [facility] HospitalComment on above:Performed By: #### LEONEL IPF, BMP #### [facility] [address] [place] [address] Dispatcher [employer]: Brandan Ugalde MDBasophils/100 WBC (Bld)0 %Normal0-2MSt. Joseph HospitalComment on above:Performed By: #### LEONEL, IPF, BMP #### [facility] [address] [place] [address] Dispatcher [employer]: Brandan Ugalde MDEosinophils/100 WBC (Bld)0 %Low1-4[facility] HospitalComment on above:Performed By: #### CDP, IPF, BMP #### [facility] [address] [place] [address] Dispatcher [employer]: Brandan Ugalde MDErythrocyte distribution width (RBC) [Ratio]14.0 %Gbrufj20.8-14.4[facility] HospitalComment on above:Performed By: #### LEONEL, IPF, BMP #### [address] [address] Dispatcher [employer]: Brandan Ugalde MDHematocrit (Bld) [Volume fraction]34.1 %Low 36.3-47.1MSt. Joseph HospitalComment on above:Performed By: #### LEONEL, IPF, BMP #### [address] [address] Dispatcher [employer]: Brandan Ugalde MDHemoglobin (Bld) [Mass/Vol]10.8 g/dLLow11.9-15.1 [facility] HospitalComment on above:Performed By: #### LEONEL, IPF, BMP #### [address] [address] Dispatcher [employer]: Brandan Ugalde MDImmature granulocytes/100 WBC (Bld)1 %Jxpp6NcsmhUc West [facility] HospitalComment on above:Performed By: #### LEONEL, IPF, BMP #### [address] [address] Dispatcher [employer]: Brandan Ugalde MDLymphocytes (Bld) [#/Vol]1.85 10*3/uLNormal 1.10-3.70[facility] HospitalComment on above:Performed By: #### LEONEL, IPF, BMP #### [address] [address] Dispatcher [employer]: German Wootenmphocytes/100 WBC (Bld)21 %Rfu02-06FnegaUc West Chester HospitalComment on above:Performed By: #### CDP, IPF, BMP #### [facility] [address] [place] [address] Dispatcher [employer]: GAVIN WootenCH (RBC) [Entitic mass]28.1 qhDzirlg57.2-33.5 [facility] HospitalComment on above:Performed By: #### CDP, IPF, BMP #### [facility] [address] [place] [address] Dispatcher [employer]: GAVIN WootenCHC (RBC) [Mass/Vol]31.7 g/rNZskhns49.4-34.8 [facility] HospitalComment on above:Performed By: #### CDP, IPF, BMP #### [facility] [address] [place] [address] Dispatcher [employer]: GAVIN WootenCV (RBC) [Entitic vol]88.6 fVExwmrr49.6-102.9 [facility] HospitalComment on above:Performed By: #### LEONEL, IPF, BMP #### [address] [address] Dispatcher [employer]: GAVIN Wootenonocytes (Bld) [#/Vol]0.79 10*3/uLNormal 0.10-1.20[facility] HospitalComment on above:Performed By: #### CDP, IPF, BMP #### [facility] [address] [place] [address]66 Dispatcher [employer]: GAVIN Wootenonocytes/100 WBC (Bld)9 %Normal3-12[facility] HospitalComment on above:Performed By: #### CDP, IPF, BMP #### [facility] [address] [place] [address] Dispatcher [employer]: Brandan Ugalde MDNeutrophil (Seg)69 %Fslz03-79UeianUc West Chester HospitalComment on above:Performed By: #### CDP, IPF, BMP #### [facility] [address] [place] [address] Dispatcher [employer]: GOLDIE Wooten Automated0.0 per 100 WBCNormal0.0U[facility] HospitalComment on above:Performed By: #### CDP, IPF, BMP #### [facility] [address] [place] [address] Dispatcher [employer]: Isabell Wooten mean volume (Bld) [Entitic vol]9.0 fL Normal8.1-13.5[facility] HospitalComment on above:Performed By: #### CDP, IPF, BMP #### [facility] [address] [place] [address] Dispatcher [employer]: Robert Wooten (Bld) [#/Vol]107 10*3/kTBjr212-222 [facility] HospitalComment on above:Performed By: #### CDP, IPF, BMP #### [facility] [address] [place] [address] Dispatcher [employer]: BAKARI Wooten (Bld) [#/Vol]3.85 10*6/uLLow3.95-5.11[facility] HospitalComment on above:Performed By: #### CDP, IPF, BMP #### [facility] [address] [place] [address] Dispatcher [employer]: MISTY Wooten (Bld) [#/Vol]8.8 10*3/uLNormal3.5-11.3MSt. Joseph HospitalComment on above:Performed By: #### CDP, IPF, BMP #### [facility] [address] [place] [address] Dispatcher [employer]: Laxmi Wooten PerformedNOT REPORTEDNoalUc West Chester HospitalComment on above:Performed By: #### CDP, IPF, BMP #### [facility] [address] [place] [address] Dispatcher [employer]: Isabell Wooten CommentNOT REPORTEDProMedica Defiance Regional HospitalComment on above:Performed By: #### CDP, IPF, BMP #### [facility] [address] [place] [address] Dispatcher [employer]: BAKARI Wooten morphology finding Nom (Bld)NOT REPORTED [facility] HospitalComment on above:Performed By: #### CDP, IPF, BMP #### [facility] [address] [place] [address]677 Dispatcher [employer]: MISTY Wooten MorphologyNOT REPORTEDProMedica Defiance Regional HospitalComment on above:Performed By: #### CDP, IPF, BMP #### [facility] [address] [place] [address]77 Dispatcher [employer]: DENI Wooten DNA Probe, Nasalon [id number], DNA, NasalNegativeNEGATIVEMiami Valley Hospital HealthComment on above:NEGATIVE: MRSA DNA not detected by nucleic acid amplification. Results should be used as an adjunct to nosocomial control efforts to identify patients needing enhanced precautions. The test is not intended to identify patients with staphylococcal infections. Results should not be used to guide or monitor treatment for MRSA infections. Specimen Description.NASAL SWABMercy HealthMiami Valley Hospital HealthMRSA, DNA, Nasalon [id number], DNA, NasalNegativeNormalNEGUc West [facility] Hospital Comment on above:Result Comment: NEGATIVE: MRSA DNA not detected by nucleic acid amplification. Results should be used as an adjunct to nosocomial control efforts to identify patients needing enhanced precautions. The test is not intended to identify patients with staphylococcal infections. Results should not be used to guide or monitor treatment for MRSA infections. Performed By: #### CDP, IPF, BMP #### [facility] [address] [place] [address] Dispatcher [employer]: Ita Wootenesiumon [id number] [Mass/Vol]1.7 mg/dLNormal1.6-2.6[facility] PresbyterianComment on above:Performed By: #### EMILIO CASTANEDA, BMP #### [facility] [address] [place] [address] [phone] Dispatcher [employer]: Brandan Ugalde MDMagnesium [Mass/Vol]1.7 mg/dL1.6 - 2.6 mg/dL [facility] HealthMagnesium [Mass/Vol]1.8 mg/dLNormal1.6-2.6[facility] PresbyterianComment on above:Performed By: #### EMILIO CASTANEDA, BMP #### [facility] [address] [place] [address] [phone] Dispatcher [employer]: Brandan Ugalde MDMagnesium [Mass/Vol]1.8 mg/dL1.6 - 2.6 mg/dL Merc HealthMagnesium [Mass/Vol]1.9 mg/dLNormal1.6-2.6[facility] PresbyterianComment on above:Performed By: #### LEONEL, IPF, BMP #### [facility] [address] [place] [address] [phone] Dispatcher [employer]: Brandan Ugalde MDMagnesium [Mass/Vol]1.9 mg/dL1.6 - 2.6 mg/dL [facility] HealthMagnesium [Mass/Vol]1.8 mg/dLNormal1.6-2.6[facility] PresbyterianComment on above:Performed By: #### LEONEL, IPF, BMP #### [facility] [address] [place] [address] [phone] Dispatcher [employer]: Chadwick Wooten Panel Informationon [id number] Prairie Memorial HospitalInterpretation and review of laboratory resultsAbnormalBellin Health's [facility] Glucose Fingerstickon [id number] [Mass/Vol]159 mg/dLHigh 65 - 105 mg/dLSelect [facility] Specialty Hospital [facility], IncInterpretation and review of laboratory results AbnormalMercy HealthMercy HealthGlucose [Mass/Vol]166 mg/pQTalu44 - 105 mg/dL [facility] HealthInterpretation and review of laboratory resultsAbnormalOhiohealth Arthur G.[facility] Center HealthGlucose [Mass/Vol]227 mg/fEApep06 - 105 mg/dLMiami Valley Hospital Health Interpretation and review of laboratory resultsAbnormalAurora Health Care [facility] Glucose [Mass/Vol]290 mg/hLSrtp68 - 105 mg/dLMiami Valley Hospital HealthInterpretation and review of laboratory resultsAbnormalKettering Health [facility] HealthGlucose [Mass/Vol] 269 mg/kCYxyq32 - 105 mg/dLMiami Valley Hospital HealthInterpretation and review of laboratory resultsAbnormalKettering Health – [facility] Center HealthGlucose [Mass/Vol]137 mg/aZHfgv89 - 105 mg/dLMiami Valley Hospital HealthInterpretation and review of laboratory resultsAbnormalKettering Health – Soin Medical Center HealthPhosphoruson [id number] [Mass/Vol]3.1 mg/dL2.6 - 4.5 mg/dLSelect [facility], IncPhosphate [Mass/Vol]3.0 mg/dL2.6 - 4.5 mg/dLSelect [facility], Inc Phosphate [Mass/Vol]1.9 mg/dLLow2.6 - 4.5 mg/dLMiami Valley Hospital HealthPhosphorus, Inorg.on [id number], Inorg.3.1 mg/dLNormal2.6-4.5[facility] HospitalComment on above:Performed By: #### LEONEL IPF, BMP #### [facility] [address] [place] [address] Dispatcher [employer]: DANIEL Wootenhosphorus, Inorg.3.0 mg/dLNormal2.6-4.5[facility] HospitalComment on above:Performed By: #### CDP, IPF, BMP #### [facility] [address] [place], [place] [id number] Dispatcher [employer]: Brandan Ugalde MDPhosphorus, Inorg.1.9 mg/dLLow2.6-4.5[facility] HospitalComment on above:Performed By: #### CDP, IPF, BMP #### [facility] [address] [place] [address] Dispatcher [employer]: Nadira Wooten Inorg.1.9 mg/dLLow2.6-4.5[facility] HospitalComment on above:Performed By: #### CDP, IPF, BMP #### [facility] [address] [place] [address] Dispatcher [employer]: JACOB WootenPECIMEDarya REJECTIONon 09-29-2021-NOT REPORTED [facility], IncOrdered TestVDayton Children's HospitalReason for RejectionUnable to perform testing: Specimen clotted.[facility], IncSpecimen source Nom (Unsp spec).[facility] Center - Wild RoseSpecimen Rejectionon [id number] for rejectionUnable to perform testing: Specimen clotted.[facility] HospitalComment on above:Performed By: #### CDP, IPF, BMP #### [facility] [address] [place] [address] Dispatcher [employer]: Devin Wooten of sample.[facility] Lady of Mercy HospitalComment on above:Performed By: #### CDP, IPF, BMP #### [facility] [address] [place] [address] Dispatcher [employer]: Brandan Ugalde MDTest orderedAccess Hospital DaytonComment on above:Performed By: #### CDP, IPF, BMP #### [facility] [address] [place] [address] Dispatcher [employer]: Brandan Ugalde MD-----NOT REPORTEDNoWooster Community HospitalComment on above:Performed By: #### CDP, IPF, BMP #### [facility] [address] [place] [address] Dispatcher [employer]: Nicole Wootenous Blood Gaseson [id number] Temp.37.0 NormalUc West Chester HospitalComment on above:Performed By: #### LEONEL IPF, BMP #### [facility] YES.TAP [address] [place] [address] Dispatcher [employer]: Kenji Wooten Hgb1.2 %Normal0-5[facility] HospitalComment on above:Result Comment: Reference Range: Non-Smokers 0-2% Average Smoker 2-4% Heavy Smoker <10%Performed By: #### CDP, IPF, BMP #### [facility] YES.TAP [address] [place] [address] Dispatcher [employer]: Brandan Ugalde MDFIO2INFORMATION NOT PROVIDEDNormalUc West Chester HospitalComment on above:Performed By: #### LEONEL IPF, BMP #### [facility] YES.TAP [address] [place] [address]18 Dispatcher [employer]: Brandan Ugalde MDHCO3 (Bld) [Moles/Vol]15.2 mmol/PSlb67-56XbtdyUc West Chester HospitalComment on above:Performed By: #### LEONEL IPF, BMP #### [address] [address] Dispatcher [employer]: Brandan Ugalde MDNegative Base Wubcua38.6 mmol/LHigh0.0-2.0Uc [facility] HospitalComment on above:Performed By: #### LEONEL IPF, BMP #### [facility] YES.TAP [address] [place] [address] 48063 Dispatcher [employer]: Brandan Ugalde MDOxygen (Bld) [Partial pressure]39.5 mm[Hg]Normal 30-50[facility] HospitalComment on above:Performed By: #### LEONEL IPF, BMP #### [facility] YES.TAP [address] [place] [address] 7[address]69 Dispatcher [employer]: Brandan Ugalde MDOxygen saturation in Blood80.9 %Qkqddj48.0-85.0 [facility] HospitalComment on above:Performed By: #### CDP, IPF, BMP #### [facility] [address] [place] [address] 60967 Dispatcher [employer]: Daniel WootenCO234.5Psb06-06LcrohUc West Chester Hospital Comment on above:Performed By: #### CDP, IPF, BMP #### [facility] [address] [place] [address] Dispatcher [employer]: Brandan Ugalde [facility] (Bld)7.261 [pH]Low7.320-7.420Uc [facility] HospitalComment on above:Performed By: #### CDP, IPF, BMP #### [facility] [address] [place] [address] Dispatcher [employer]: Miguel Wooten TestNOT REPORTEDNormalMerHemet Global Medical CenterComment on above:Performed By: #### CDP, IPF, BMP #### [facility] [address] [place] [address] 8[address]64 Dispatcher [employer]: GAVIN WootenethemoglobinNOT REPORTEDNormal0.0-1.5[facility] HospitalComment on above:Performed By: #### CDP, IPF, BMP #### [facility] [address] [place] [address] Dispatcher [employer]: GAVIN WootenodeNOT REPORTEDNormalUc West Chester HospitalComment on above:Performed By: #### CDP, IPF, BMP #### [facility] [address] [place] [address] Dispatcher [employer]: Brandan Ugalde MDNotification TimeNOT REPORTEDNormalUc West Chester HospitalComment on above:Performed By: #### CDP, IPF, BMP #### [facility] [address] [place] [address] Dispatcher [employer]: Brandan Ugalde MDNotification:NOT REPORTEDNormalUc West Chester HospitalComment on above:Performed By: #### CDP, IPF, BMP #### [facility] [address] [place] [address] 42635 Dispatcher [employer]: Brandan Ugalde MDO2 Device/Flow/%NOT REPORTEDNormalUc West Chester HospitalComment on above:Performed By: #### CDP, IPF, BMP #### [facility] [address] [place] [address] Dispatcher [employer]: Brandan Ugalde MDOxyhemoglobinNOT PFEXHBWJWjpnie68.0-98.0[facility] HospitalComment on above:Performed By: #### CDP, IPF, BMP #### [facility] [address] [place] [address] 06836 Dispatcher [employer]: DANIEL Wootenco2 Adj'd for Temp.NOT QKRGKLQQIctfdv26-43HoxzxUc West Chester HospitalComment on above:Performed By: #### CDP, IPF, BMP #### [facility] [address] [place] [address] 264[address] Dispatcher [employer]: DANIEL WootenEEP/CPAPNOT REPORTEDNormalUc West Chester HospitalComment on above:Performed By: #### CDP, IPF, BMP #### [facility] [address] [place] [address] 13776 Dispatcher [employer]: Daniel Wooten Adjst'd for Temp.NOT REPORTEDNormal 7.320-7.420Uc [facility] HospitalComment on above:Performed By: #### CDP, IPF, BMP #### [facility] [address] [place] [address] Dispatcher [employer]: Daniel Wooten Adj'd for Temp.NOT BWHNDBGMArfvhx85-27XiepqUc West Chester HospitalComment on above:Performed By: #### CDP, IPF, BMP #### [facility] [address] [place] [address] Dispatcher [employer]: Caren Wooten Base ExcessNOT REPORTEDNormal0.0-2.0 [facility] HospitalComment on above:Performed By: #### CDP, IPF, BMP #### [facility] [address] [place] [address]44 Dispatcher [employer]: DANIEL WootenSVNOT REPORTEDNormalSumma Health Akron Campuscy [facility] Hospital PresbyterianComment on above:Performed By: #### CDP, IPF, BMP #### [facility] [address] [place] [address] 56[address] Dispatcher [employer]: Pat Wooten. PositionNOT REPORTEDNormalSumma Health Akron Campuscy [facility] Hospital PresbyterianComment on above:Performed By: #### CDP, IPF, BMP #### [facility] [address] [place] [address]14 Dispatcher [employer]: Bakari Wooten RateNOT REPORTEDNormalMercy [facility] Hospital PresbyterianComment on above:Performed By: #### CDP, IPF, BMP #### [facility] [address] [place] [address] Dispatcher [employer]: Stanislaw Wooten RateNOT REPORTEDNormalMercy [facility] Hospital PresbyterianComment on above:Performed By: #### CDP, IPF, BMP #### [facility] [address] [place] [address] 78[address] Dispatcher [employer]: Lindsey Wooten DrawnNOT REPORTEDNormalMercy [facility] Hospital PresbyterianComment on above:Performed By: #### CDP, IPF, BMP #### [facility] [address] [place] [address] 26389 Dispatcher [employer]: Donald Wooten for RespiratoryNOT REPORTEDNormalMercy [facility] Hospital PresbyterianComment on above:Performed By: #### CDP, IPF, BMP #### [facility] [address] [place] [address] Dispatcher [employer]: Constantine Wooten HbNOT GGFIUUISRcixmj17.0-16.0[facility] HospitalComment on above:Performed By: #### EMILIO CASTANEDA, BMP #### [facility] [address] [place] [address] Dispatcher [employer]: Constantine Wooten RateNOT REPORTEDNormalUc West Chester HospitalComment on above:Performed By: #### EMILIO CASTANEDA, BMP #### [facility] [address] [place], [place] [phone] Dispatcher [employer]: Brandan Ugalde MDVTBRETT REPORTEDNormalUc West Chester HospitalComment on above:Performed By: #### EMILIO CASTANEDA, BMP #### [facility] [address] [place], [place] [phone] Dispatcher Bus [employer]: DREW oWoten METABOLIC PANELon [id number] gap [Moles/Vol]13 mmol/L9 - 17 mmol/LMercy HealthCalcium [Mass/Vol]8.7 mg/dL8.6 - 10.4 mg/dLMercy HealthChloride [Moles/Vol]115 mmol/LHigh98 - 107 mmol/LMercy HealthCO2 [Moles/Vol]14 mmol/LLow20 - 31 mmol/LMercy HealthCreatinine [Mass/Vol] 2.15 mg/dLHigh0.50 - 0.90 mg/dLMercy HealthGFR Svjkhhnz62 mL/minLow>60 [facility] HealthGFR Non- Uyekxert26 mL/minLow>60[facility] HealthGFR/1.73 sq M.predicted MDRD (S/P/Bld) [Vol rate/Area][facility], IncComment on above:Average GFR for 40-49 years old: 99 mL/min/1.73sq m Chronic Kidney Disease: <60 mL/min/1.73sq m Kidney failure: <15 mL/min/1.73sq m eGFR calculated using average adult body mass. Additional eGFR calculator available at: http://www.[employer].Sembraire/multiple_crcl_2012.htm GFR/1.73 sq M.predicted MDRD (S/P/Bld) [Vol rate/Area]NOT REPORTEDMercy Health Glucose [Mass/Vol]160 mg/pSKpwu85 - 99 mg/dLMercy HealthInterpretation and review of laboratory resultsAbnormalMercy HealthPotassium [Moles/Vol]2.9 mmol/L Critically low3.7 - 5.3 mmol/LMercy HealthSodium [Moles/Vol]142 mmol/L135 - 144 mmol/LMercy HealthUrea nitrogen (BldV) [Mass/Vol]33 mg/dLHigh6 - 20 mg/dLMercy HealthUrea nitrogen/Creatinine (Bld) [Mass ratio]NOT REPORTEDMercy HealthMercy HealthBLOOD GAS, VENOUSon [id number] TestNOT REPORTEDMer[facility] Health Carboxyhemoglobin2.2 %0 - 5 %[facility] HealthComment on above: Reference Range: Non-Smokers 0-2% Average Smoker 2-4% Heavy Smoker <10% UVU6QPMVMJXZcqam HealthHCO3 (Bld) [Moles/Vol]17.3 mmol/LLow24 - 30 mmol/LMercy HealthInterpretation and review of laboratory resultsAbnormalMer Health MethemoglobinNOT REPORTED0.0 - 1.5 %[facility] HealthModeNOT REPORTEDMer[facility] Health Negative Base Excess, Ven8.2 mmol/LHigh0.0 - 2.0 mmol/LMercy HealthNOTIFICATION NOT REPORTEDMercy HealthNOTIFICATION TIMENOT REPORTEDMercy HealthO2 Device/Flow/%NOT REPORTEDMercy HealthOxygen saturation in Blood80.7 %60.0 - 85.0 %[facility] HealthOxyhemoglobinNOT PQDWMRUO06.0 - 98.0 %[facility] HealthpCO2, Ven37.0Low [facility] HealthpCO2, Earnest, Temp AdjNOT REPORTEDMercy HealthPeep/CpapNOT REPORTED [facility] HealthpH, Ven7.290LowMercy HealthpH, Earnest, Temp AdjNOT REPORTEDMercy Health pO2, Ven34.0[facility] HealthpO2, Earnest, Temp AdjNOT REPORTEDMercy HealthPositive Base Excess, VenNOT REPORTED0.0 - 2.0 mmol/LMercy HealthPSVNOT REPORTEDMercy HealthPt Temp37.0[facility] HealthPt. PositionNOT REPORTEDMercy HealthRespiratory RateNOT REPORTEDMercy HealthSample SiteNOT REPORTEDMercy HealthSet RateNOT REPORTEDMi[facility] HealthText for RespiratoryNOT REPORTEDSelect [facility], IncTotal HbNOT QESSUAZP88.0 - 16.0 g/dlSelect [facility], IncTotal RateNOT REPORTEDMer HealthVTNOT REPORTEDAurora Health Care Bay Area Medical CenterBasic Metabolic Panelon [id number] gap [Moles/Vol]6 mmol/LLow9 - 17 mmol/LMercy HealthCalcium [Mass/Vol]8.5 mg/dLLow8.6 - 10.4 mg/dL [facility] HealthChloride [Moles/Vol]110 mmol/LHigh98 - 107 mmol/LMercy HealthCO2 [Moles/Vol]15 mmol/LLow20 - 31 mmol/LMercy HealthCreatinine [Mass/Vol]2.24 mg/dL High0.50 - 0.90 mg/dLMiami Valley Hospital HealthGFR Tcaqnulv60 mL/minLow>60[facility] GFR Non- Oevdmopk66 mL/minLow>60Mer HealthGFR/1.73 sq M.predicted MDRD (S/P/Bld) [Vol rate/Area][facility], IncComment on above:Average GFR for 40-49 years old: 99 mL/min/1.73sq m Chronic Kidney Disease: <60 mL/min/1.73sq m Kidney failure: <15 mL/min/1.73sq m eGFR calculated using average adult body mass. Additional eGFR calculator available at: http://www.Valderm/multiple_crcl_2012.htm GFR/1.73 sq M.predicted MDRD (S/P/Bld) [Vol rate/Area]NOT REPORTEDSelect [facility], Inc Glucose [Mass/Vol]156 mg/aJCnsn28 - 99 mg/dLMiami Valley Hospital HealthPotassium [Moles/Vol]3.4 mmol/LLow3.7 - 5.3 mmol/LMercy HealthSodium [Moles/Vol]131 mmol/EInb913 - 144 mmol/LMercy HealthUrea nitrogen (BldV) [Mass/Vol]32 mg/dLHigh6 - 20 mg/dLMer HealthUrea nitrogen/Creatinine (Bld) [Mass ratio]NOT REPORTEDSelect [facility], IncAnion gap [Moles/Vol]10 mmol/L9 - 17 mmol/LMercy HealthCalcium [Mass/Vol]8.2 mg/dLLow 8.6 - 10.4 mg/dLMercy HealthChloride [Moles/Vol]113 mmol/LHigh98 - 107 mmol/L [facility] HealthCO2 [Moles/Vol]16 mmol/LLow20 - 31 mmol/LMercy HealthCreatinine [Mass/Vol]2.2 mg/dLHigh0.50 - 0.90 mg/dLMercy HealthGFR Vvixvnqo33 mL/minLow>60[facility] HealthGFR Non- Baumdspn77 mL/minLow>60[facility] GFR/1.73 sq M.predicted MDRD (S/P/Bld) [Vol rate/Area][facility], IncComment on above:Average GFR for 40-49 years old: 99 mL/min/1.73sq m Chronic Kidney Disease: <60 mL/min/1.73sq m Kidney failure: <15 mL/min/1.73sq m eGFR calculated using average adult body mass. Additional eGFR calculator available at: http://www.[employer]der[employer]/multiple_crcl_2012.htm GFR/1.73 sq M.predicted MDRD (S/P/Bld) [Vol rate/Area]NOT REPORTEDSelect [facility], Inc Glucose [Mass/Vol]231 mg/gAEkbb09 - 99 mg/dLMiami Valley Hospital HealthPotassium [Moles/Vol]4.5 mmol/L3.7 - 5.3 mmol/LMercy HealthComment on above:SPECIMEN SLIGHTLY HEMOLYZED, RESULTS MAY BE ADVERSELY AFFECTED.Sodium [Moles/Vol]139 mmol/L135 - 144 mmol/L [facility], IncUrea nitrogen (BldV) [Mass/Vol]33 mg/dLHigh6 - 20 mg/dLSelect [facility] Specialty [facility], Inc Urea nitrogen/Creatinine (Bld) [Mass ratio]NOT REPORTEDSelect [facility], IncAnion gap [Moles/Vol]17 mmol/L9 - 17 mmol/LMercy HealthCalcium [Mass/Vol]8.7 mg/dL8.6 - 10.4 mg/dLMercy HealthChloride [Moles/Vol]116 mmol/LHigh98 - 107 mmol/LMercy HealthCO2 [Moles/Vol]12 mmol/LLow20 - 31 mmol/LMercy HealthCreatinine [Mass/Vol] 2.22 mg/dLHigh0.50 - 0.90 mg/dLMiami Valley Hospital HealthGFR Tqddfddn18 mL/minLow>60 [facility], IncGFR Non- Jsdgmhqj59 mL/minLow>60[facility], IncGFR/1.73 sq M.predicted MDRD (S/P/Bld) [Vol rate/Area][facility], IncComment on above:Average GFR for 40-49 years old: 99 mL/min/1.73sq m Chronic Kidney Disease: <60 mL/min/1.73sq m Kidney failure: <15 mL/min/1.73sq m eGFR calculated using average adult body mass. Additional eGFR calculator available at: http://www.Valderm/multiple_crcl_2012.htm GFR/1.73 sq M.predicted MDRD (S/P/Bld) [Vol rate/Area]NOT REPORTEDSelect [facility], Inc Glucose [Mass/Vol]232 mg/jRJdzk62 - 99 mg/dLSelect [facility] Specialty [facility], IncPotassium [Moles/Vol]3.2 mmol/LLow3.7 - 5.3 mmol/LMerc HealthSodium [Moles/Vol]145 mmol/NLikd692 - 144 mmol/LMercy HealthUrea nitrogen (BldV) [Mass/Vol]35 mg/dLHigh6 - 20 mg/dLSelect [facility], IncUrea nitrogen/Creatinine (Bld) [Mass ratio]NOT REPORTEDSouthwest General Health Center Metabolic Profon [id number]/CRE RatioNOT REPORTEDNormal9-20[facility] HospitalComment on above:Performed By: #### LEONEL, IPF, BMP #### [facility] [address] [place] [address] Dispatcher [employer]: JACOB Wootentaging:NOT REPORTEDNormalUc West Chester HospitalComment on above:Performed By: #### LEONEL, IPF, BMP #### [facility] [address] [place] [address] Dispatcher [employer]: Brandan Ugalde MD(cont.)[facility] Comment on above:Result Comment: Average GFR for 40-49 years old: 99 mL/min/1.73sq m Chronic Kidney Disease: <60 mL/min/1.73sq m Kidney failure: <15 mL/min/1.73sq m eGFR calculated using average adult body mass. Additional eGFR calculator available at: http://www.[employer].com/multiple_crcl_2012.htmPerformed By: #### LEONEL IPF, BMP #### [facility] [address] [place] [address] Dispatcher [employer]: Brandan Ugalde MDAnion gap [Moles/Vol]10 mmol/LNormal9-17[facility] HospitalComment on above:Performed By: #### LEONEL IPF, BMP #### [facility] [address] [place] [address] Dispatcher [employer]: Brandan Ugalde MDCalcium [Mass/Vol]8.2 mg/dLLow8.6-10.4[facility] HospitalComment on above:Performed By: #### LEONEL IPF, BMP #### [facility] [address] [place] [address]62 Dispatcher [employer]: DANIELLE Wootenhloride [Moles/Vol]113 mmol/YWptb30-333HidmkUc West Chester HospitalComment on above:Performed By: #### LEONEL IPF, BMP #### [facility] [address] [place] [address] Dispatcher [employer]: Brandan Ugalde MDCO2 [Moles/Vol]16 mmol/LOfk03-61SmdxyUc West Chester HospitalComment on above:Performed By: #### LEONEL, IPF, BMP #### [facility] [address] [place] [address]68 Dispatcher [employer]: Brandan Ugalde MDCreatinine [Mass/Vol]2.20 mg/dLHigh0.50-0.90 [facility] HospitalComment on above:Performed By: #### LEONEL, IPF, BMP #### [facility] [address] [place] [address]49 Dispatcher [employer]: Brandan Ugalde MDGFR, Amer30 mL/minLow>60[facility] HospitalComment on above:Performed By: #### EMILIO CASTANEDA, BMP #### [facility] [address] [place] [address]63 Dispatcher [employer]: Brandan Ugalde MDGFR,non Amer24 mL/minLow>60[facility] HospitalComment on above:Performed By: #### LEONEL IPF, BMP #### [facility] [address] [place] [address] Dispatcher [employer]: Brandan Ugalde MDGlucose [Mass/Vol]231 mg/xXNbwz10-14ZcagyTri-City Medical CenterComment on above:Performed By: #### LEONEL IPF, BMP #### [address] [address] Dispatcher [employer]: DANIEL Wootenotassium [Moles/Vol]4.5 mmol/LNormal3.7-5.3 [facility] HospitalComment on above:Result Comment: SPECIMEN SLIGHTLY HEMOLYZED, RESULTS MAY BE ADVERSELY AFFECTED.Performed By: #### LEONEL IPF, BMP #### [address] [address] Dispatcher [employer]: JACOB Wootenodium [Moles/Vol]139 mmol/FJhpoft213-423IesylUc West Chester HospitalComment on above:Performed By: #### LEONEL IPF, BMP #### [facility] [address] [place] [address] Dispatcher [employer]: Brandan Ugalde MDUrea nitrogen [Mass/Vol]33 mg/dLHigh6-20[facility] HospitalComment on above:Performed By: #### LEONEL IPF, BMP #### [facility] [address] [place] [address] Dispatcher [employer]: Brandan Ugalde MDBUN/CRE RatioNOT REPORTEDNormal9-20[facility] HospitalComment on above:Performed By: #### CDP, IPF, BMP #### [facility] [address] [place] [address]88 Dispatcher [employer]: JACOB Wootentaging:NOT REPORTEDNormalUc West Chester HospitalComment on above:Performed By: #### CDP, IPF, BMP #### [facility] [address] [place] [address] Dispatcher [employer]: Brandan Ugalde MD(cont.)[facility] Comment on above:Result Comment: Average GFR for 40-49 years old: 99 mL/min/1.73sq m Chronic Kidney Disease: <60 mL/min/1.73sq m Kidney failure: <15 mL/min/1.73sq m eGFR calculated using average adult body mass. Additional eGFR calculator available at: http://www.Valderm/multiple_crcl_2012.htmPerformed By: #### BMP, MG, MARZENA #### [facility] [address] [place] [address] Dispatcher [employer]: Brandan Ugalde MDAnion gap [Moles/Vol]17 mmol/LNormal9-17[facility] HospitalComment on above:Performed By: #### BMP, MG, MARZENA #### [facility] [address] [place] [address] Dispatcher [employer]: Brandan Ugalde MDCalcium [Mass/Vol]8.7 mg/dLNormal8.6-10.4[facility] HospitalComment on above:Performed By: #### BMP, MG, MARZENA #### [facility] [address] [place] [address]28 Dispatcher [employer]: Brandan Ugalde MDChloride [Moles/Vol]116 mmol/TAneo37-058TszdfUc West Chester HospitalComment on above:Performed By: #### BMP, MG, MARZENA #### [facility] [address] [place] [address]40 Dispatcher [employer]: Brandan Ugalde MDCO2 [Moles/Vol]12 mmol/PVtf58-72AgwsvUc West Chester HospitalComment on above:Performed By: #### BMP, MG, MARZENA #### [facility] [address] [place] [address] Dispatcher [employer]: DANIELLE Wootenreatinine [Mass/Vol]2.22 mg/dLHigh0.50-0.90 [facility] HospitalComment on above:Performed By: #### BMP, MG, MARZENA #### [facility] [address] [place] [address] Dispatcher [employer]: Brandan Ugalde MDGFR, Amer29 mL/minLow>60[facility] HospitalComment on above:Performed By: #### BMP, MG, MARZENA #### [facility] [address] [place] [address] Dispatcher [employer]: BRAIN Wooten,non Amer24 mL/minLow>60[facility] HospitalComment on above:Performed By: #### BMP, MG, MARZENA #### [facility] [address] [place] [address] Dispatcher [employer]: Brandan Ugalde MDGlucose [Mass/Vol]232 mg/gIUadq33-15PjrptSt. Joseph HospitalComment on above:Performed By: #### BMP, MG, MARZENA #### [facility] [address] [place] [address] Dispatcher [employer]: Brandan Ugalde MDPotassium [Moles/Vol]3.2 mmol/LLow3.7-5.3MSt. Joseph HospitalComment on above:Performed By: #### BMP, MG, MARZENA #### [facility] [address] [place] [address] Dispatcher [employer]: Brandan Ugalde MDSodium [Moles/Vol]145 mmol/CVoxm380-269IfrxaUc West Chester HospitalComment on above:Performed By: #### BMP, MG, MARZENA #### [facility] [address] [place] [address] Dispatcher [employer]: Brandan Ugalde MDUrea nitrogen [Mass/Vol]35 mg/dLHigh6-20[facility] HospitalComment on above:Performed By: #### BMP, MG, MARZENA #### [facility] [address] [place] [address] Dispatcher [employer]: Brandan Ugalde MDBUN/CRE RatioNOT REPORTEDNormal9-20[facility] HospitalComment on above:Performed By: #### BMP, MG, MARZENA #### [facility] [address] [place] [address] Dispatcher [employer]: JACOB Wootentaging:NOT REPORTEDNoWooster Community HospitalComment on above:Performed By: #### BMP, MG, MARZENA #### [facility] [address] [place] [address] Dispatcher [employer]: Brandan Ugalde MD(cont.)[facility] Comment on above:Result Comment: Average GFR for 40-49 years old: 99 mL/min/1.73sq m Chronic Kidney Disease: <60 mL/min/1.73sq m Kidney failure: <15 mL/min/1.73sq m eGFR calculated using average adult body mass. Additional eGFR calculator available at: http://www.[employer].com/multiple_crcl_2012.htmPerformed By: #### CDP, IPF, BMP #### [facility] [address] [place] [address] Dispatcher [employer]: Oksana Wooten gap [Moles/Vol]13 mmol/LNormal9-17[facility] HospitalComment on above:Performed By: #### CDP, IPF, BMP #### [facility] [address] [place] [address] 16732 Dispatcher [employer]: DANIELLE Wootenalcium [Mass/Vol]8.7 mg/dLNormal8.6-10.4[facility] HospitalComment on above:Performed By: #### LEONEL IPF, BMP #### [facility] [address] [place] [address] Dispatcher [employer]: DANIELLE Wootenhloride [Moles/Vol]115 mmol/RCukj20-092GnesrUc West Chester HospitalComment on above:Performed By: #### LEONEL, IPF, BMP #### [facility] [address] [place] [address] Dispatcher [employer]: Brandan Ugalde MDCO2 [Moles/Vol]14 mmol/RMpc36-76EjladUc West Chester HospitalComment on above:Performed By: #### LEONEL IPF, BMP #### [facility] [address] [place] [address] Dispatcher [employer]: DANIELLE Wootenreatinine [Mass/Vol]2.15 mg/dLHigh0.50-0.90 [facility] HospitalComment on above:Performed By: #### LEONEL IPF, BMP #### [facility] [address] [place] [address] Dispatcher [employer]: Brandan Ugalde MDGFR, Amer30 mL/minLow>60[facility] HospitalComment on above:Performed By: #### LEONEL, IPF, BMP #### [facility] [address] [place] [address] Dispatcher [employer]: Brandan Ugalde MDGFR,non Amer25 mL/minLow>60[facility] HospitalComment on above:Performed By: #### LEONEL, IPF, BMP #### [facility] [address] [place] [address] Dispatcher [employer]: Brandan Ugalde MDGlucose [Mass/Vol]160 mg/eENrpm28-82Cjvqo [facility] PresbyterianComment on above:Performed By: #### CDP, IPF, BMP #### [facility] [address] [place] [address] Dispatcher [employer]: DANIEL Wootenotassium [Moles/Vol]2.9 mmol/LCritically low 3.7-5.3[facility] PresbyterianComment on above:Performed By: #### CDP, IPF, BMP #### [facility] [address] [place] [address] Dispatcher [employer]: JACOB Wootenodium [Moles/Vol]142 mmol/BZbyihx173-869JhsqvUc West Chester HospitalComment on above:Performed By: #### CDP, IPF, BMP #### [facility] [address] [place] [address] Dispatcher [employer]: Oriana Wooten nitrogen [Mass/Vol]33 mg/dLHigh6-20[facility] HospitalComment on above:Performed By: #### LEONEL, IPF, BMP #### [facility] [address] [place] [address] Dispatcher [employer]: CHAVO Wooten/ABI Ramey REPORTEDNormal9-20[facility] HospitalComment on above:Performed By: #### CDP, IPF, BMP #### [facility] [address] [place] [address] 88375 Dispatcher [employer]: JACOB Wootentaging:NOT REPORTEDNormalUc West Chester HospitalComment on above:Performed By: #### CDP, IPF, BMP #### [facility] [address] [place] [address] 17865 Dispatcher [employer]: HIRO Wooten WITH AUTO DIFFERENTIALon 29-10-5742Dswoyvdf Eos #<0.03[facility] HealthAbsolute Immature Granulocyte0.18[facility] HealthAbsolute Lymph #1.06LowMercy HealthAbsolute Potter #1.03[facility] HealthBasophils (Bld) [#/Vol] 10*3/uLMerMultiCare Tacoma General HospitalBasophils/100 WBC (Bld)0 %0 - 2 %[facility], IncDifferential TypeNOT REPORTEDSelect [facility], IncEosinophils/100 WBC (Bld)0 %Low1 - 4 %[facility] Hematocrit (Bld) [Volume fraction]36.2 %Low36.3 - 47.1 %[facility] Hemoglobin.gastrointestinal spec 1 Ql (Stl)12.8 g/dL11.9 - 15.1 g/dLSelect Medical Specialty [facility], Inc Immature granulocytes/100 WBC (Bld)1 %Fpbr3VsqloSelect Medical Specialty Hospital [facility], IncInterpretation and review of laboratory resultsAbnormalSelect Medical Specialty [facility], IncLymphocytes/100 WBC (Bld)8 %Low24 - 43 %[facility], IncMCH (RBC) [Entitic mass]29.1 pg25.2 - 33.5 pgFairfield Medical CenterHC (RBC) [Mass/Vol]35.4 g/hBWole83.4 - 34.8 g/dLFairfield Medical CenterV (RBC) [Entitic vol]82.3 fLLow82.6 - 102.9 fLSelect Medical Specialty Hospital - [facility], IncMonocytes/100 WBC (Bld)8 %3 - 12 %[facility] NRBC Automated0.00.0 per 100 WBCSelect Medical Specialty Hospital - [facility], IncPlatelet distribution width (Bld) [Ratio]13.2 %11.8 - 14.4 %[facility], IncPlatelet EstimateNOT REPORTEDSelect Medical Specialty [facility], Inc Platelet mean volume (Bld) [Entitic vol]NOT REPORTED8.1 - 13.5 fLSelect Medical Specialty Hospital - [facility], Inc Platelets (Bld) [#/Vol]See Reflexed IPF ResultSelect Medical Specialty Hospital - [facility], IncRBC (Bld) [#/Vol]4.40 10*6/uL3.95 - 5.11 m/uLSelect Medical Specialty Hospital [facility], IncRBC (Bld) [#/Vol]MICROCYTOSIS PRESENTSelect Medical Specialty Hospital [facility], IncSegmented neutrophils/100 WBC (Bld)82 %High36 - 65 %[facility], IncSegs Goznzxet70.34HighSelect Medical Specialty Hospital [facility], IncWBC (Bld) [#/Vol]12.6 10*3/uLHighSelect Medical Specialty Hospital [facility], IncWBC (Bld) [#/Vol]NOT REPORTEDAurora Health Care Bay Area Medical CenterCBC with Diffon [id number]. Basophil<0.46Hxoijr0.00-0.20[facility] HospitalComment on above: Performed By: #### EMILIO CASTANEDA, BMP #### [facility] [address] [place] [address] 72060 Dispatcher [employer]: Karma Wooten. Eosinophil<0.74Oqbnat4.00-0.44[facility] HospitalComment on above:Performed By: #### EMILIO CASTANEDA, BMP #### [facility] [address] [place] [address] Dispatcher [employer]: Karma Wooten.Imm.Granulocyte0.18 k/uLNormal0.00-0.30[facility] HospitalComment on above:Performed By: #### EMILIO CASTANEDA, BMP #### [address] [address] Dispatcher [employer]: Karma Wooten.Neutrophil (Seg)10.34 k/uLHigh1.50-8.10[facility] HospitalComment on above:Performed By: #### EMILIO CASTANEDA, BMP #### [facility] [address] [place] [address] 18276 Dispatcher [employer]: Brandan Ugalde MDBasophils/100 WBC (Bld)0 %Normal0-2MSt. Joseph HospitalComment on above:Performed By: #### EMILIO CASTANEDA, BMP #### [facility] [address] [place] [address]755 Dispatcher [employer]: Brandan Ugalde MDEosinophils/100 WBC (Bld)0 %Low1-4[facility] HospitalComment on above:Performed By: #### EMILIO CASTANEDA, BMP #### [facility] [address] [place] [address] 8[address]32 Dispatcher [employer]: Brandan Ugalde MDErythrocyte distribution width (RBC) [Ratio]13.2 %Qzzncy96.8-14.4[facility] HospitalComment on above:Performed By: #### LEONEL, IPF, BMP #### [facility] [address] [place] [address] Dispatcher [employer]: Brandan Ugalde MDHematocrit (Bld) [Volume fraction]36.2 %Low 36.3-47.1MSt. Joseph HospitalComment on above:Performed By: #### LEONEL, IPF, BMP #### [address] [address] Dispatcher [employer]: Brandan Ugalde MDHemoglobin (Bld) [Mass/Vol]12.8 g/dLNormal 11.9-15.1MSt. Joseph HospitalComment on above:Performed By: #### LEONEL, IPF, BMP #### [address] [address] Dispatcher [employer]: Julianne Wootenmature granulocytes/100 WBC (Bld)1 %Ixrn6JzfubUc West Chester HospitalComment on above:Performed By: #### LEONEL IPF, BMP #### [address] [address] Dispatcher [employer]: Brandan Ugalde MDLymphocytes (Bld) [#/Vol]1.06 10*3/uLLow 1.10-3.70[facility] HospitalComment on above:Performed By: #### LEONEL, IPF, BMP #### [address] [address] Dispatcher [employer]: German Wootenmphocytes/100 WBC (Bld)8 %Zzl92-21QgkidUc West Chester HospitalComment on above:Performed By: #### LEONEL, IPF, BMP #### [address] [address] Dispatcher [employer]: GAVIN WootenCH (RBC) [Entitic mass]29.1 wiNurmin44.2-33.5 [facility] HospitalComment on above:Performed By: #### LEONEL IPF, BMP #### [address] [address] Dispatcher [employer]: GAVIN WootenCHC (RBC) [Mass/Vol]35.4 g/sFMxhs02.4-34.8[facility] HospitalComment on above:Performed By: #### LEONEL, IPF, BMP #### [address] [address] Dispatcher [employer]: GAVIN WootenCV (RBC) [Entitic vol]82.3 fLLow82.6-102.9[facility] HospitalComment on above:Performed By: #### LEONEL, IPF, BMP #### [place] [address] Dispatcher [employer]: GAVIN Wootenonocytes (Bld) [#/Vol]1.03 10*3/uLNormal 0.10-1.20[facility] HospitalComment on above:Performed By: #### LEONEL IPF, BMP #### [address] [address] Dispatcher [employer]: GAVIN Wootenonocytes/100 WBC (Bld)8 %Normal3-12[facility] HospitalComment on above:Performed By: #### LEONEL, IPF, BMP #### [address] [address] Dispatcher [employer]: Brandan Ugalde MDNeutrophil (Seg)82 %Cydl19-86LsnxxUc West Chester HospitalComment on above:Performed By: #### LEONEL, IPF, BMP #### [facility] [address] [place] [address] Dispatcher [employer]: Brandan Ugalde MDNRBC Automated0.0 per 100 WBCNormal0.0[facility] HospitalComment on above:Performed By: #### CDP, IPF, BMP #### [facility] [address] [place] [address] Dispatcher [employer]: Isabell Wooten CountSee Reflexed IPF ResultNormal 138-453[facility] HospitalComment on above:Performed By: #### CDP, IPF, BMP #### [facility] [address] [place] [address] Dispatcher [employer]: BAKARI Wooten (Bld) [#/Vol]4.40 10*6/uLNormal3.95-5.11 [facility] HospitalComment on above:Performed By: #### CDP, IPF, BMP #### [facility] [address] [place] [address] Dispatcher [employer]: BAKARI Wooten morphology finding Nom (Bld)MICROCYTOSIS PRESENTProMedica Defiance Regional HospitalComment on above:Performed By: #### CDP, IPF, BMP #### [facility] [address] [place] [address] Dispatcher [employer]: MISTY Wooten (Bld) [#/Vol]12.6 10*3/uLHigh3.5-11.3Mpremier health upper valley medical centery [facility] Hospital PresbyterianComment on above:Performed By: #### CDP, IPF, BMP #### [facility] [address] [place] [address]258 Dispatcher [employer]: Laxmi Wooten Diff PerformedNOT REPORTEDNormalUc West Chester HospitalComment on above:Performed By: #### CDP, IPF, BMP #### [facility] [address] [place] [address]59 Dispatcher [employer]: GAVIN WootenPVNOT REPORTEDNormal8.1-13.5[facility] HospitalComment on above:Performed By: #### CDP, IPF, BMP #### [facility] [address] [place] [address] 21848 Dispatcher [employer]: Sadaf Wootentelet CommentNOT REPORTEDProMedica Defiance Regional HospitalComment on above:Performed By: #### EMILIO CASTANEDA BMP #### [facility] [address] [place] [address] Dispatcher [employer]: MISTY Wooten MorphologyNOT REPORTEDProMedica Defiance Regional HospitalComment on above:Performed By: #### EMILIO CASTANEDA BMP #### [facility] [address] [place] [address] 11810 Dispatcher [employer]: Becky Wooten Platelet Fractionon 09-28-2021 Interpretation and review of laboratory resultsAbnormalMer HealthPlatelet, Oslfzdipqvsk763Wwdqy HealthComment on above:ORDERED BY LABPlatelet, Immature Fraction0.4 %Low1.1 - 10.3 %[facility], IncComment on above:ORDERED BY LABMercy HealthLACTIC ACID, WHOLE BLOODon 64-41-7442Kkrpig Acid, Whole Blood1.4 mmol/L0.7 - 2.1 mmol/LMercy HealthMiami Valley Hospital HealthLactic Acid,Whole Blon 34-45-5891Zssdtb Acid,Whole Bl1.4 mmol/LNormal0.7-2.1[facility] PresbyterianComment on above:Performed By: #### LACWB #### [facility] [address] [place] [address]29 Dispatcher [employer]: GAVIN WootenRSA, DNA, Nasalon 89-12-1192Dbrmtlpq Description.NASAL SWABNormMercy Health Fairfield HospitalComment on above: Performed By: #### EMILIO CASTANEDA BMP #### [facility] [address] [place] [address] Dispatcher [employer]: Brandan Ugalde MDMagnesiumon 16-28-3652Fkvmewqme [Mass/Vol]1.8 mg/dL1.6 - 2.6 mg/dLMiami Valley Hospital HealthMagnesium [Mass/Vol]1.9 mg/dLNormal1.6-2.6[facility]cy [facility] PresbyterianComment on above:Performed By: #### CDP, IPF, BMP #### [employer] [facility] [address] [place], [place] [id number] Dispatcher Bus [employer] Trolley: Brandan Ugalde, MDMagnesium [Mass/Vol]1.9 mg/dL1.6 - 2.6 mg/dL [facility] HealthMagnesium [Mass/Vol]2.1 mg/dLNormal1.6-2.6MercTri-City Medical CenterComment on above:Performed By: #### BMP, MG, MARZENA #### [facility] [address] [place], [place] [id number] Dispatcher Bus [employer]ley: Brandan Ugalde, MDMagnesium [Mass/Vol]2.1 mg/dL1.6 - 2.6 mg/dL [facility] HealthMicroscopic Urinalysison 09-28-2021-[facility] HealthAmorphous, UANOT REPORTEDNoneMercy HealthBacteria, UANOT REPORTEDNoneMercy HealthCasts UAFINE GRANULARMercy HealthCasts UA5 TO 10Mer HealthCrystals, UANOT REPORTEDNone /HPF Merc HealthEpithelial Cells UA5 TO 10Mer HealthInterpretation and review of laboratory resultsAbnormalMiami Valley Hospital HealthMucus, UANOT REPORTEDNoneMey HealthOther Observations UANOT REPORTEDNOT REQ.[facility] HealthRBC, UA5 TO 10Mer HealthRenal Epithelial, UANOT REPORTED0 /HPFMercy HealthTrichomonas, UANOT REPORTEDNoneMercy HealthWBC, UA5 TO 10[facility] HealthYeast, UAMODERATEAbnormalNoneMeGranville Medical Center HealthNo Panel Informationon 97-37-9286Zkbrwxokhygizm and review of laboratory resultsAbnormWayne HealthCare Main Campus HealthInterpretation and review of laboratory resultsAbnormRegency Hospital Companycy HealthInterpretation and review of laboratory resultsAbnoCleveland Clinic [facility] HealthPLT, Immature Fract.on 09-28-2021 Platelet, Fluoresc.147 k/nSDqgmig682-727Onmcd [facility] PresbyterianComment on above:Result Comment: ORDERED BY LABPerformed By: #### CDP, IPF, BMP #### [facility] [address] [place], [place] [phone] Dispatcher [employer]: ROSELIA Wooten Immature Fract.0.4 %Low1.1-10.3Mercy [facility] PresbyterianComment on above:Result Comment: ORDERED BY LABPerformed By: #### LEONEL, IPF, BMP #### [facility] [address] [place], [place] [phone] Dispatcher [employer]: YARI Wooten Glucose Fingerstickon 64-83-9122Mygszwl [Mass/Vol]140 mg/qDRykz90 - 105 mg/dLMercy HealthInterpretation and review of laboratory resultsAbnormalMercy HealthMercy HealthGlucose [Mass/Vol]148 mg/dL High65 - 105 mg/dLMercy HealthInterpretation and review of laboratory results AbnormalMercy HealthMercy HealthGlucose [Mass/Vol]161 mg/bVQqoi70 - 105 mg/dL Merc HealthInterpretation and review of laboratory resultsAbnormalMiami Valley Hospital Health [facility] HealthGlucose [Mass/Vol]176 mg/tBNayw08 - 105 mg/dLMercy Health Interpretation and review of laboratory resultsAbnormalMercy HealthMercy Health Glucose [Mass/Vol]212 mg/mZHesi06 - 105 mg/dLMercy HealthInterpretation and review of laboratory resultsAbnormalMercy HealthMercy HealthGlucose [Mass/Vol] 223 mg/tWFpik69 - 105 mg/dLMercy HealthInterpretation and review of laboratory resultsAbnormalMercy HealthMercy HealthGlucose [Mass/Vol]208 mg/zGQyay10 - 105 mg/dLMercy HealthInterpretation and review of laboratory resultsAbnormalMercy HealthMercy HealthGlucose [Mass/Vol]248 mg/oLGfcc52 - 105 mg/dLMercy Health Interpretation and review of laboratory resultsAbnormalMercy HealthMercy Health Glucose [Mass/Vol]217 mg/mCZjvn85 - 105 mg/dLMercy HealthInterpretation and review of laboratory resultsAbnormalMercy HealthMercy HealthGlucose [Mass/Vol] 205 mg/zAPglz50 - 105 mg/dLMercy HealthInterpretation and review of laboratory resultsAbnormalMercy HealthMercy HealthGlucose [Mass/Vol]199 mg/yWTuya43 - 105 mg/dLMer HealthInterpretation and review of laboratory resultsAbnormalMercy HealthMercy HealthGlucose [Mass/Vol]178 mg/jRZkku45 - 105 mg/dLMer Health Interpretation and review of laboratory resultsAbnormalSelect [facility] Special[facility], IncMercy Health Glucose [Mass/Vol]151 mg/wMEtfq90 - 105 mg/dLMer HealthInterpretation and review of laboratory resultsAbnormalMercy HealthMercy HealthGlucose [Mass/Vol] 162 mg/yTVrof31 - 105 mg/dLMer HealthInterpretation and review of laboratory resultsAbnormalMercy HealthMercy HealthPhosphoruson 58-35-5769Iatjhgobs [Mass/Vol]1.9 mg/dLLow2.6 - 4.5 mg/dLMer HealthPhosphate [Mass/Vol]1.6 mg/dL Low2.6 - 4.5 mg/dLMer HealthPhosphate [Mass/Vol]1.9 mg/dLLow2.6 - 4.5 mg/dL [facility] HealthPhosphorus, Inorg.on 67-50-8101Ianfxwmwuc, Inorg.1.6 mg/dLLow2.6-4.5 [facility] HospitalComment on above:Performed By: #### CDP, IPF, BMP #### [facility] [address] [place] [address] [phone] Dispatcher [employer]: DANIEL Wootenhosphorus, Inorg.1.9 mg/dLLow2.6-4.5[facility] HospitalComment on above:Performed By: #### CDP, IPF, BMP #### [facility] [address] [place] [address] [phone] Dispatcher [employer]: Brandan Ugalde MDUrinalysison 51-50-6630Bltkefkxy UrineNegative NEGATIVEMiami Valley Hospital HealthColor, UAYellowYellowMiami Valley Hospital HealthGlucose, Ur1+Abnormal NEGATIVEMiami Valley Hospital HealthInterpretation and review of laboratory resultsAbnormalSumma Health Akron Campuscy HealthKetones Ql (U)SMALLAbnormalNEGATIVEMercy HealthLeukocyte esterase Test strip Ql (U)MODERATEAbnormalNEGATIVEMercy HealthNitrite, UrineNegativeNEGATIVE [facility] HealthpH, UA5.5Mer[facility] HealthProtein, UA2+AbnormalNEGATIVEMercy Health Specific [place], UA1.016Mercy HealthTurbidity UATurbidAbnormalClearMercy Health Urinalysis CommentsNOT REPORTEDMercy HealthUrine HgbLARGEAbnormalNEGATIVEMercy HealthUrobilinogen, UrineNormalNormalMercy HealthMercy HealthUrinalysis, Routine on 53-79-9291Umqqqthkn, SemiQt,UrNegativeNormalNEGMercy [facility] PresbyterianComment on above:Performed By: #### UA, UMICAO #### [facility] [address] [place] [address] Dispatcher [employer]: Ijeoma Wooten, UrineLARGEAbnormalNEGMerHemet Global Medical CenterComment on above:Performed By: #### UA, UMICAO #### [facility] [address] [place] [address] Dispatcher [employer]: Hipolito Wootenty (U)TurbidAbnormalCLEARMercy [facility] PresbyterianComment on above:Performed By: #### UA, UMICAO #### [facility] [address] [place] [address] Dispatcher [employer]: Mitchel Wooten (U)YellowNormalYELMercy [facility] Hospital PresbyterianComment on above:Performed By: #### UA, UMICAO #### [facility] [address] [place] [address] Dispatcher [employer]: Wilbert Wooten Ql (U)1+AbnormalNEGMercy [facility] PresbyterianComment on above:Performed By: #### UA, UMICAO #### [facility] [address] [place] [address] Dispatcher [employer]: Brandan Madoff, MDKetones Ql (U)SMALLAbnormalNEGMerHemet Global Medical CenterComment on above:Performed By: #### UA, UMICAO #### [facility] [address] [place] [address] Dispatcher [employer]: Brandan Ugalde MDLeukocyte esterase Test strip Ql (U)MODERATE AbnormalNEGMerHemet Global Medical CenterComment on above:Performed By: #### UA, UMICAO #### [facility] [address] [place] [address] Dispatcher [employer]: Lianet Wootentrite,UrNegativeNormalNEGUc West Chester HospitalComment on above:Performed By: #### GERMANIA, UMICAO #### [facility] [address] [place] [address] Dispatcher [employer]: DANIEL Wooten,Ur5.6Pyvmsf7.0-8.0[facility] HospitalComment on above:Performed By: #### GERMANIA, UMICAO #### [facility] [address] [place] [address] Dispatcher [employer]: Charmaine Wooten Ql (U)2+AbnormalNEGUc West Chester HospitalComment on above:Performed By: #### GERMANIA, UMICAO #### [facility] [address] [place] [address] Dispatcher [employer]: Clarisa Wooten. [place],Ur1.675Ijpila5.005-1.030[facility] HospitalComment on above:Performed By: #### UA, UMICAO #### [facility] [address] [place] [address] Dispatcher [employer]: Zoie Wooteninogen,UrNormalNormalNORMUc West [facility] HospitalComment on above:Performed By: #### GERMANIA, UMICAO #### [facility] [address] [place] [address] Dispatcher [employer]: DANIELLE WootenommalgorzataNOT REPORTEDNormalMercy [facility] Hospital PresbyterianComment on above:Performed By: #### FRANK SOLOO #### [facility] [address] [place] [address] Dispatcher [employer]: Brandan Ugalde MDUrinalysis,Microon 09-28-2021-----NormalMercy [facility] Hospital PresbyterianComment on above:Performed By: #### GERMANIA UMICAO #### [facility] [address] [place] [address] Dispatcher [employer]: DANIELLE WootenastsFINE GRANULARNormal0-2MercTri-City Medical CenterComment on above:Result Comment: 5 TO 10Performed By: #### COLLEEN SOLOICAO #### [facility] [address] [place] [address] Dispatcher [employer]: Brandan Ugalde MDEpithelial cells LM Ql (Urine sed)5 TO 10Normal 0-5MerHemet Global Medical CenterComment on above:Performed By: #### GERMANIA UMICAO #### [facility] [address] [place] [address] Dispatcher [employer]: Luna Wooten RBC's5 TO 72Hsparx8-4Uyzdg [facility] PresbyterianComment on above:Performed By: #### GERMANIA UMICAO #### [facility] [address] [place] [address] Dispatcher [employer]: Luna Wooten WBC's5 TO 11Uzhjmd5-5Whhej [facility] PresbyterianComment on above:Performed By: #### GERMANIA UMICAO #### [facility] [address] [place] [address] Dispatcher [employer]: Brandan Ugalde MDYeastMODERATEAbnormalNONEMercTri-City Medical CenterComment on above:Performed By: #### UA, UMICAO #### [facility] [address] [place] [address] Dispatcher [employer]: Yudi Wootenrpremington sediment LM Ql (Urine sed)NOT REPORTED NormalNONEMercy [facility]ag [facility] Hospital PresbyterianComment on above:Performed By: #### GERMANIA, UMICAO #### [facility] [address] [place] [address] Dispatcher [employer]: Brandan Ugalde MDBacteriaNOT REPORTEDNormalNONEMeFrench Hospital Medical CenterComment on above:Performed By: #### GERMANIA UMICAO #### [facility] [address] [place] [address] Dispatcher [employer]: Kimmy Wooten LM Nom (Urine sed)NOT REPORTEDNormal NONEMerHemet Global Medical CenterComment on above:Performed By: #### GERMANIA UMICAO #### [facility] [address] [place] [address] Dispatcher [employer]: Brandan Ugalde MDEpithelial, RenalNOT COJHKISMIabdii1ZmgfmUc West [facility] HospitalComment on above:Performed By: #### GERMANIA UMICAO #### [facility] [address] [place] [address]67 Dispatcher [employer]: GAVIN Wootenucus StrandsNOT REPORTEDNormalNONEMeFrench Hospital Medical CenterComment on above:Performed By: #### GERMANIA UMICAO #### [facility] [address] [place] [address] Dispatcher [employer]: Brandan Ugalde MDOther ObservationsNOT REPORTEDNormalNREQMerHemet Global Medical CenterComment on above:Performed By: #### GERMANIA UMICAO #### [facility] [address] [place] [address] Dispatcher [employer]: Brandan Ugalde MDTrichomonasNOT REPORTEDNormalNONEMeFrench Hospital Medical CenterComment on above:Performed By: #### UA, UMICAO #### [facility] [address] [place] [address]377 Dispatcher [employer]: Brandan Ugalde MDVenous Blood Gaseson 57-60-6594Bokz Temp.37.0 NormalUc West Chester HospitalComment on above:Performed By: #### VBG #### [address] [address] Dispatcher [employer]: Kenji Wooten Hgb2.2 %Normal0-5[facility] HospitalComment on above:Result Comment: Reference Range: Non-Smokers 0-2% Average Smoker 2-4% Heavy Smoker <10%Performed By: #### VBG #### [address] [address] Dispatcher [employer]: Brandan Ugalde MDZGGLT8JBJDAMWGzjqvuYsimpSamaritan North Health CenterComment on above:Performed By: #### VBG #### [address] [address] Dispatcher [employer]: Brandan Ugalde MDHCO3 (Bld) [Moles/Vol]17.3 mmol/JJii20-04QzpixUc West Chester HospitalComment on above:Performed By: #### VBG #### [address] [address] Dispatcher [employer]: Brandan Ugalde MDNegative Base Excess8.2 mmol/LHigh0.0-2.0[facility] HospitalComment on above:Performed By: #### VBG #### [address] [address] Dispatcher [employer]: Brandan Ugalde MDOxygen (Bld) [Partial pressure]34.0 mm[Hg]Normal 30-50[facility] HospitalComment on above:Performed By: #### VBG #### [address] [address] Dispatcher [employer]: Brandan Ugalde MDOxygen saturation in Blood80.7 %Vqtvwn33.0-85.0 [facility] HospitalComment on above:Performed By: #### VBG #### [address] [address] Dispatcher [employer]: Daniel WooetnCO237.1Gxo09-33XvanmUc [facility] Comment on above:Performed By: #### VBG #### [address] [address] Dispatcher [employer]: Brandan Ugalde [facility] (Bld)7.290 [pH]Low7.320-7.420[facility] HospitalComment on above:Performed By: #### VBG #### [address] [address] Dispatcher [employer]: Miguel Wooten TestNOT REPORTEDNormalMerHemet Global Medical CenterComment on above:Performed By: #### VBG #### [address] [address] Dispatcher [employer]: GAVIN WootenethemoglobinNOT REPORTEDNormal0.0-1.5[facility] HospitalComment on above:Performed By: #### VBG #### [address] [address] Dispatcher [employer]: GAVIN WootenodeNOT REPORTEDNormalUc West [facility] HospitalComment on above:Performed By: #### VBG #### [address] [address] Dispatcher [employer]: Brandan Ugalde MDNotification TimeNOT REPORTEDNormalUc West Chester HospitalComment on above:Performed By: #### VBG #### [address] [address] Dispatcher [employer]: Brandan Ugalde MDNotification:NOT REPORTEDNormalMercy Morada Medical CenterComment on above:Performed By: #### VBG #### [facility] [address] [place] [address] Dispatcher Bus And Trolley: Brandan Ugalde MDO2 Device/Flow/%NOT REPORTEDNormalUc West Chester HospitalComment on above:Performed By: #### VBG #### [facility] [address] [place] [address] Dispatcher Bus And Trolley: Brandan Ugalde MDOxyhemoglobinNOT CORNURJDDiuppz22.0-98.0Uc [facility] HospitalComment on above:Performed By: #### VBG #### [address] [address] Dispatcher Bus And Trolley: DANIEL Wootenco2 Adj'd for Temp.NOT EEDSJEVYGcfrvu31-60GxchsUc West Chester HospitalComment on above:Performed By: #### VBG #### [facility] YES.TAP [address] [place] [address] Dispatcher Bus And Trolley: DANIEL WootenEEP/CPAPNOT REPORTEDNormalUc West Chester HospitalComment on above:Performed By: #### VBG #### [address] [address] Dispatcher Bus And Trolley: Daniel Wooten Adjst'd for Temp.NOT REPORTEDNormal 7.320-7.420Uc [facility] HospitalComment on above:Performed By: #### VBG #### [facility] [address] [place] [address] Dispatcher Bus And Trolley: Daniel WootenO2 Adj'd for Temp.NOT TCAUNOZFPesjhi22-25BaavmUc West Chester HospitalComment on above:Performed By: #### VBG #### [facility] [address] [place] [address] Dispatcher Bus And Trolley: Brandan Madoff, MDPositive Base ExcessNOT REPORTEDNormal0.0-2.0 [facility] HospitalComment on above:Performed By: #### VBG #### [address] [address] Dispatcher Bus And Trolley: DANIEL WootenSVNOT REPORTEDNormalUc West Chester HospitalComment on above:Performed By: #### VBG #### [address] [address] Dispatcher Bus And Trolley: DANIEL Wootent. PositionNOT REPORTEDNormalUc West Chester HospitalComment on above:Performed By: #### VBG #### [address] [address] Dispatcher Bus And Trolley: Bakari Wooten RateNOT REPORTEDNormalUc West Chester HospitalComment on above:Performed By: #### VBG #### [address] [address] Dispatcher Bus And Trolley: Stanislaw Wooten RateNOT REPORTEDNormalUc West Chester HospitalComment on above:Performed By: #### VBG #### [address] [address] Dispatcher Bus And Trolley: JACOB Wootenite DrawnNOT REPORTEDNormalUc West Chester HospitalComment on above:Performed By: #### VBG #### [address] [address] Dispatcher Bus And Trolley: Brandan Ugalde MDText for RespiratoryNOT REPORTEDNormalUc West Chester HospitalComment on above:Performed By: #### VBG #### [address] [address] Dispatcher Bus And Trolley: Yesi Wootental HbNOT KBCKQESLPqgxmd97.0-16.0Uc [facility] HospitalComment on above:Performed By: #### VBG #### [facility] [address] [place], [place] [id number] Dispatcher Bus And Trolley: Brandan Ugalde MDTotal RateNOT St. Anthony HospitalComment on above:Performed By: #### VBG #### [facility] [address] [place], [place] [id number] Dispatcher Bus And Trolley: Brandan Ugalde MDVTNOT St. Anthony HospitalComment on above:Performed By: #### VBG #### [facility] [address] [place], [place] 6263808 Dispatcher Bus And Trolley: KELLIE Wooten CHEST PORTABLEon 36-03-3655DT CHEST PORTABLE EXAMINATION: ONE XRAY VIEW OF [...] Signed by: Perla Sommer MD 09/28/21 Final resultNoWooster Community HospitalBilateral scattered pulmonary opacities consistent with multifocal airspace disease/pneumonia. No extrapleural air. PN RIS CONSOLIDATEDEXAMINATION: ONE XRAY VIEW OF THE CHEST 09/28/2021 [...] effusion or extrapleural air is noted. PN Perla Ramirez MD - 09/28/2021 EXAMINATION: ONE XRAY VIEW [...] with multifocal airspace disease/pneumonia. No extrapleural air. [employer] Phone: radiology Study observation (narrative)[employer] Phone: xr CHEST PORTABLEOrdered By: Perla Ros on 09-28-2021 [employer] Phone: ANKLE LEFT MIN 3 VIEWS Mon [id number] LEFT MIN 3 VIEWS MPatient Name: CARISSA SANTOS Patient Patient : 1980 [...] By: Mt Ho MD On: 05/23/2021 1:42 [facility] HospitalConsent for Treatmenton 12-59-1595Txygibe for Treatment [id number]:127NormalOhioHealth Hardin [facility] Clinical Summaryon [id number] Clinical Summary [place] [id number] ED Clinical Summary Person Information Name: CARISSA ASNTOS/Roberto Age: 40 Years : 1980 Sex: Female Language: Sao Tomean PCP: DIAZ DALTON MD Marital Status: Visit [...] 02/06/2021 02:47:40 02/06/2021 02:47:40 ADDRESS: [address] [facility] [facility] [phone] PHYS DOC NOTES: MEDICAL INFORMATION: Prescriptions Given: PATIENT EDUCATION INFORMATION: Instructions: Follow up: DIAGNOSIS:NormalJacober Ata Medical CenterED Patient Education Noteon [id number] Patient Education NoteNormalJono Berumen Medical CenterED Patient Summaryon [id number] Patient Summary [place] [id number] Patient Discharge Instructions Person Information Name: CARISSA SANTOS Age: 40 Years Arrival Date: 02/05/2021 22:28:14 Discharge Diagnosis: Primary Care Physician: DIAZ DALTON MD Provider Information Primary Provider: Loco Marcos MD Advanced Director Of First Impressions:None The exam and treatment you received in the Emergency Department were for an urgent problem and are not intended as complete care. It is important that you follow up with a doctor, nurse practitioner,or physician?s assistant store manager operations for ongoing care. If your symptoms become [...] opioids can be used to help relieve vdwkcyjm-ce-aqxdcb pain and are often prescribed following a [...] and have fewer risks and side effects. Optionsmay include: ? Pain relievers such as acetaminophen, [...] unused prescription opioids: Find your community drug take- back program or yourpharmacy mail-back program, or flush them down the toilet, following guidance from the Food and Drug Administration (www.fda.gov/Drugs/ResourcesForYou). ? Visit www.cdc.gov/drugoverdose to learn about the risks of opioids abuse and overdose. ? If you believe you may be struggling with addiction, tell your health grounds caretaker and ask for guidance or call SAMA?S National Helpline at 9-111-621-BMTS. o Source: [place] Department of Health and Human Services/Center for Disease Control & Prevention [facility] Medications Given: Medication Dose Route No medications found. Medication Inf (more content not included)...[facility] CHEST AND LATERALon 82-91-3073KVNMY AND LATERALMadison Health Department of Radiology [address] [place] [id number] Patient Name: CARISSA SANTOS : 1980 Sex: [...] Signed by: SHAMA CALVIN @ 02/04/2021 02:25 PMNBarberton Citizens HospitalComment on above:Order Comment: MahsaUS Gibson 11-96-0551JOGSLGX [facility] Department of Radiology [address] [place] [phone] Patient Name: CARISSA SANTOS : 1980 Sex: F Age: Race: White Pt. Location: Patient Status: Ordered Date: 02/04/2021 8:55:00 AM Completed Date: 02/04/2021 09:20 AM Requesting Provider: ALIYA RUIZ Attending Provider: Report Copy To: Signs & Symptoms: R22.32 Localized swelling, mass and lump, left upper limb I10 History: Keri Comments: Evaluate Exam: HUMERUS LEFT HUMERUS LEFT CLINICAL INFORMATION: Patient complains of left shoulder and humerus pain and swelling for three years COMPARISON: None. IMPRESSION: 1. No fracture or other acute osseous abnormalities identified. No abnormal sclerosis. Electronically signed: Shama Calvin. Transcribed by: Naz, User Resident: Electronically Signed by: SHAMA CALVIN @ 02/04/2021 01:59 PMNBarberton Citizens HospitalComment on above:Order Comment: Evaluate SHOULDER LEFTon [id number] [facility] Department of Radiology [address] [place] [phone] Patient Name: CARISSA SANTOS : 1980 Sex: [...] sclerosis. Electronically signed: Shama Calvin. Transcribed by: [email or web address], User Resident: Electronically Signed by: SHAMA CALVIN @ 02/04/2021 01:58 [facility] HospitalComment on above:Order Comment: Evaluate Vital Signs Date TimeVital SignValuePerforming VzqhpkjjbTihqdmec57-47-7826 11:05-0400 Diastolic blood vumxwcba72 mm[Hg]Diaz Dalton MD Work Phone: [facility]10-09-2025 11:05-0400 Heart rate78 /minDiaz Dalton MD Work Phone: 1(525)[address] [place], [place] 5724310-09-2025 11:05-0400 Respiratory rate18 /minDiaz Dalton MD Work Phone: 1(674)[address] [place], [place] 5724310-09-2025 11:05-0400 SaO2% (BldA) [Mass fraction]96 %Diaz Dalton MD Work Phone: 1(085)[address] [place], [place] 5724310-09-2025 11:05-0400 Systolic blood gnbegphq262 mm[Hg]Diaz Dalton MD Work Phone: 1(152)[address] [place], [place] 5724310-09-2025 10:39-0400 Body dgdgdztawof18.2 [degF]Diaz Dalton MD Work Phone: 1(143)[address] [place], [place] 5724310-09-2025 08:53-0400 Body jwyyjz418.94 cmDiaz Dalton MD Work Phone: 1(018)[address] [place], [place] 5724310-09-2025 08:53-0400 Body .44 kgDiaz Dalton MD Work Phone: 1(947)[address] [place], [place] 5724310-02-2025 11:17-0400 Body qtgoco581.94 cmDiaz Dalton MD Work Phone: 1(020)[address] [place], [place] 5724310-02-2025 11:17-0400 Body mass index (BMI) [Ratio]40.8 kg/m2Diaz Dalton MD Work Phone: 1(545)[address] [place], [place] 5724310-02-2025 11:17-0400 Body vyufrvesukh52.1 [degF]Diaz Dalton MD Work Phone: 1(955)[address] [place], [place] 5724310-02-2025 11:17-0400 Body pyfita41.97 kgDiaz Dalton MD Work Phone: 1(396)[address] [place], [place] 5724310-02-2025 11:17-0400 Diastolic blood ysewdrxu85 mm[Hg]Diaz Dalton MD Work Phone: [facility]10-02-2025 11:17-0400 Heart rate96 /minDiaz Dalton MD Work Phone: [facility]10-02-2025 11:17-0400 Respiratory rate20 /minDiaz Dalton MD Work Phone: [facility]10-02-2025 11:17-0400 SaO2% (BldA) [Mass fraction]96 %Diaz Dalton MD Work Phone: [facility]10-02-2025 11:17-0400 Systolic blood anrovrik585 mm[Hg]Diaz Dalton MD Work Phone: [phone]09-30-2025 13:24-0400 Body .9 cmMatthew Cittadino PA Work Phone: [facility] ServicesZortzvtfzt80-81-5045 13:24-0400Body mass index (BMI) [Ratio]38.92 kg/y8Zcrxsyh Medina PA Work Phone: [facility] ServicesKopamouytd18-23-6098 13:24-0400Body ofvjgm04.44 kgMatthew Medina PA Work Phone: [facility] ServicesTxdifecivf28-50-6338 13:26-0400Body fqcurp910.9 cmCorey Demar DO Work Phone: [facility] ServicesIebpelpdzd25-27-9313 13:26-0400Body mass index (BMI) [Ratio]41.57 kg/u5Ggpgg Demar DO Work Phone: [facility] ServicesVgtvbqtwjm52-29-3809 13:26-0400Body .79 kgCorey Demar DO Work Phone: [place] [address]Teamqqwnkk31-65-6356 13:26-0400Diastolic blood clrsdpeb40 mm[Hg]Feliz Demar DO Work Phone: [facility] ServicesLsqopnugiz77-96-1794 13:26-0400Systolic blood isngkyqf607 mm[Hg]Feliz Demar DO Work Phone: [facility] ServicesHssdgcugwu67-36-6159 10:48-0400Diastolic blood tlclousc36 mm[Hg]Diaz Dalton MD Work Phone: 1(397)[address]09-11-2025 10:48-0400 Heart rate71 /minDiaz Dalton MD Work Phone: 1(585)098-[address] [place], [place] 5473409-11-2025 10:48-0400 Respiratory rate16 /minDiaz Dalton MD Work Phone: 1(729)[address]09-11-2025 10:48-0400 SaO2% (BldA) [Mass fraction]100 %Diaz Dalton MD Work Phone: 1(103)[address]09-11-2025 10:48-0400 Systolic blood pyubcqky436 mm[Hg]Diaz Dalton MD Work Phone: 1(387)[address]09-11-2025 09:08-0400 Body ufwpdr948.94 cmDiaz Dalton MD Work Phone: 1(902)[address]09-11-2025 09:08-0400 Body cytaofvcgyg43.5 [degF]Diaz Dalton MD Work Phone: 1(492)[address]09-11-2025 09:08-0400 Body tponob95.5 kgDiaz Dalton MD Work Phone: 1(332)[address]09-10-2025 11:54-0400 Body bseuhg673.9 cmStaciyocasta Madrigal APRN-PUBLIC WEIGHER Work Phone: [facility]09-10-2025 11:54-0400Body mass index (BMI) [Ratio]40.83 kg/i4LozimhPacheco Madrigal APRN-PUBLIC WEIGHER Work Phone: [facility]09-10-2025 11:54-0400Body jufesf46.02 kgStsilvia Madrigal APRN-PUBLIC WEIGHER Work Phone: [facility]09-10-2025 11:54-0400Diastolic blood yimzyrrs55 mm[Hg]Pacheco Madrigal CYTOLOGY TEACHER-PUBLIC WEIGHER Work Phone: [facility]09-10-2025 11:54-0400Heart rate 77 /minStaharriett Madrigal CYTOLOGY TEACHER-PUBLIC WEIGHER Work Phone: [facility]09-10-2025 11:54-3578SqQ1% (BldA) [Mass fraction]100 %Pacheco Madrigal CYTOLOGY TEACHER-PUBLIC WEIGHER Work Phone: [facility] HospitalComment on above:Arrived on 3Lnc of J886-81-0079 11:54-0400Systolic blood ryawgvbc907 mm[Hg]Pacheco Madrigal CYTOLOGY TEACHER-PUBLIC WEIGHER Work Phone: [facility]08-11-2025 13:38-0400Body mass index (BMI) [Ratio]39.07 kg/o0Dbhzr Demar DO Work Phone: 1(669)608-[address] [place], [place] [address]Lelpwidmbt79-72-2369 13:38-0400Body .78 kgCorey Demar DO Work Phone: 1(066)160-[facility] ServicesOazaxqaayh40-29-8580 13:38-0400Diastolic blood iavfhqrl13 mm[Hg]Feliz Demar DO Work Phone: 1(564)181-[facility] ServicesDqwqqmcpbu54-33-4191 13:38-0400Systolic blood mm[Hg]Feliz Demar DO Work Phone: 1(330)090-[facility] ServicesVuxucezekl48-83-6705 13:48-0400Body mass index (BMI) [Ratio]40.25 kg/z9Vkxjf Demar DO Work Phone: 1(932)311-[facility] ServicesRanhldanti24-39-9936 13:48-0400Body vtjewd32.62 kgCorey Demar DO Work Phone: [facility] ServicesDiqaznlotl90-86-3941 13:48-0400Diastolic blood ivflvosp09 mm[Hg]Feliz Demar DO Work Phone: 1(742)787-[address] [place] [address]-14-2025 13:48-0400Systolic blood jqxupyxh426 mm[Hg]Feliz Benz DO Work Phone: [facility] ServicesJirvwbkyyr91-40-8390 09:01-0400Body buwbwb622.9 cmScharles Arrieta DO Work Phone: [facility]07-10-2025 09:01-0400Body mass index (BMI) [Ratio]40.43 kg/y2EjcwivLindsay Arrieta DO Work Phone: [facility]07-10-2025 09:01-0400Body jlpohm05.07 kgLindsay Arrieta DO Work Phone: [facility]07-10-2025 09:01-0400Diastolic blood hrbugydr18 mm[Hg]Lindsay Arrieta DO Work Phone: [facility]07-10-2025 09:01-0400Heart rate 81 /minScharles Arrieta DO Work Phone: [facility]07-10-2025 09:01-9268ZoR7% (BldA) [Mass fraction]100 %Lindsay Arrieta DO Work Phone: [facility] HospitalComment on above:3 liters 03-13-2025 09:01-0400Systolic blood nbuehmsb159 mm[Hg]Lindsay Arrieta DO Work Phone: [facility]06-09-2025 13:23-0400Body qpijoo961.9 cmDiaz Dalton MD Work Phone: [facility] ServicesYrsgshjqnq34-61-0212 13:23-0400Body mass index (BMI) [Ratio]40.25 kg/m2Diaz Dalton MD Work Phone: NOEllett Memorial HospitalMgzidwuuda51-28-5944 13:23-0400Body temperature 97.3 [degF]Diaz Dalton MD Work Phone: NOEllett Memorial HospitalFlnwwvetqg50-68-2294 13:23-0400Body camdjq09.62 kgDiaz Dalton MD Work Phone: noEllett [facility] HospitalFlrcubdpuk17-47-7963 13:23-0400Diastolic blood kqyzkjhu57 mm[Hg]Diaz Dalton MD Work Phone: noEllett [facility] HospitalZjavkdfuzq98-49-9616 13:23-0400Heart rate85 /min Diaz Dalton MD Work Phone: [facility] ServicesFbvaorqbjp23-63-6463 13:23-0400Respiratory rate20 /minDiaz Dalton MD Work Phone: [facility] ServicesMukrdvipym85-44-0334 13:23-0361CvY6% (BldA) [Mass fraction]98 %Diaz Dalton MD Work Phone: noEllett [facility] HospitalRzwrluueeo95-79-7037 13:23-0400Systolic blood mm[Hg]Diaz Dalton MD Work Phone: [facility] ServicesYnboujsmrs17-19-4620 08:08-0400Body uycsbv792.9 Clare Recio MD Work Phone: 1(967)[address]05-02-2025 08:08-0400Body mass index (BMI) [Ratio]41.38 kg/w7RyxbhKatelyn Recio MD Work Phone: 1(640)308-[address] [place], [place] 5047005-02-2025 08:08-0400Body lcquvo56.34 kgKatelyn Recio MD Work Phone: 1(413)[address]05-02-2025 08:08-0400Diastolic blood uotacpcm07 mm[Hg]Katelyn Recio MD Work Phone: 1(728)715-[address] [place], [place] 5047005-02-2025 08:08-0400Heart rate 76 /minKatelyn Recio MD Work Phone: 1(995)665-[address] [place], [place] 5047005-02-2025 08:08-8234XgW8% (BldA) [Mass fraction]100 %Katelyn Recio MD Work Phone: 1(570)437-[address] [place], [place] 5047005-02-2025 08:08-0400Systolic blood kvolvmub808 mm[Hg]Katelyn Recio MD Work Phone: [facility]04-02-2025 13:04-0400Body pumfzk941.9 cmSmonique Madrigal CYTOLOGY TEACHER-PUBLIC WEIGHER Work Phone: [facility]04-02-2025 13:04-0400Body mass index (BMI) [Ratio]40 kg/f0Ymurwhsilvia Madrigal CYTOLOGY TEACHER-PUBLIC WEIGHER Work Phone: [facility]04-02-2025 13:04-0400Body fqljne92.03 kgStsilvia Madrigal CYTOLOGY TEACHER-PUBLIC WEIGHER Work Phone: [facility]04-02-2025 13:04-0400Diastolic blood azgjybxi00 mm[Hg]Pacheco Madrigal CYTOLOGY TEACHER-PUBLIC WEIGHER Work Phone: [facility]04-02-2025 13:04-0400Heart rate 87 /minSmonique Madrigal CYTOLOGY TEACHER-PUBLIC WEIGHER Work Phone: [facility]04-02-2025 13:04-0433JzT5% (BldA) [Mass fraction]98 %Pacheco Madrigal CYTOLOGY TEACHER-PUBLIC WEIGHER Work Phone: [facility] HospitalComment on above:Arrived on 3Lnc of B587-99-5514 13:04-0400Systolic blood mm[Hg]Pacheco Madrigal CYTOLOGY TEACHER-PUBLIC WEIGHER Work Phone: [facility]03-06-2025 09:57-0500Body mass index (BMI) [Ratio]41.57 kg/m2Diaz Dalton MD Work Phone: noEl[facility] HospitalMdkhjydrrh60-98-1710 09:57-0500Body temperature 97.7 [degF]Diaz Dalton MD Work Phone: noEl[facility] HospitalHttmqcgojp60-17-5294 09:57-0500Body mutosa73.79 kgDiaz Dalton MD Work Phone: noEl[facility] HospitalJlvrqbplqe54-77-4270 09:57-0500Diastolic blood mm[Hg]Diaz Dalton MD Work Phone: noEl[facility] HospitalXlqqsirsux21-43-3040 09:57-0500Heart rate85 /min Diaz Dalton MD Work Phone: noEl[facility] HospitalJjykgbhvky48-01-5416 09:57-3288AhU6% (BldA) [Mass fraction]95 %Diaz Dalton MD Work Phone: [facility] ServicesHeycajvsaf10-59-0295 09:57-0500Systolic blood lyrhfvzj721 mm[Hg]Diaz Dalton MD Work Phone: noEl[facility] HospitalXqxxhoccvz15-79-2639 14:08-0500Body mass index (BMI) [Ratio]41 kg/m2Diaz Dalton MD Work Phone: noEl[facility] HospitalTvcyebbfav81-93-3194 14:08-0500Body temperature 97.81 [degF]Diaz Dalton MD Work Phone: [facility] ServicesTlxqeqyzxm19-50-5716 14:08-0500Body htybmb54.43 kgDiaz Dalton MD Work Phone: noEl[facility] HospitalBiraqdrnhm41-12-5370 14:08-0500Diastolic blood mm[Hg]Diaz Dalton MD Work Phone: noEl[facility] HospitalIqbyyyplqn00-29-4953 14:08-0500Heart rate96 /min Diaz Dalton MD Work Phone: [facility] ServicesVakluiezmb35-03-8258 14:08-3182NoO9% (BldA) [Mass fraction]96 %Diaz Dalton MD Work Phone: noEl[facility] HospitalSjdzkbvzwp20-84-5516 14:08-0500Systolic blood nsqmopdg455 mm[Hg]Diaz Dalton MD Work Phone: noEl[facility] HospitalXccdiwjclo64-53-2142 13:23-0500Body fniisl662.9 cmAaleahtee Mike DPM Work Phone: noEllett [facility] HospitalVympftkgnv28-16-0853 13:23-0500Body mass index (BMI) [Ratio]42.89 kg/x6QmqgvifCarmen Bowman DPM Work Phone: [facility] ServicesZpqpnkoqzx74-69-6458 13:23-0500Body hekczn118.97 kgMaciejtessa Bowman WM Work Phone: [facility] ServicesHlccktzbtp20-26-1039 07:57-0500Body lailqw287.9 Clare Recio MD Work Phone: 1(488)[address]02-03-2025 07:57-0500Body mass index (BMI) [Ratio]41.76 kg/i1ModncKatelyn Recio MD Work Phone: 1(441)[address]02-03-2025 07:57-0500Body .25 kgKatelyn Recio MD Work Phone: 1(479)[address]02-03-2025 07:57-0500Diastolic blood sjjrycpk54 mm[Hg]Katelyn Recio MD Work Phone: 1(173)956-[address] [place], [place] 5047002-03-2025 07:57-0500Heart rate 97 /minKatelyn Recio MD Work Phone: 1(582)[address]02-03-2025 07:57-0267WyS0% (BldA) [Mass fraction]97 %Katelyn Recio MD Work Phone: 1(168)303-[address] [place], [place] 5047002-03-2025 07:57-0500Systolic blood ettaantu317 mm[Hg]Katelyn Recio MD Work Phone: 1(393)779-[address] [place], [place] 5047001-02-2025 11:26-0500Body jiqems987.[address]01-02-2025 11:26-0500Body mass index (BMI) [Ratio]41.38 kg/m2Pmh [address] [place], [place] [address]1901-02-2025 11:26-0500Body .[address] [place], [place] 6921912-03-2024 20:01-0500Body goztjq607.[address]12-03-2024 20:01-0500Body mass index (BMI) [Ratio] 44.97 kg/m2Pm[address]12-03-2024 20:01-0500Body dakcxx527.[address]12-03-2024 11:33-0500Body pzrudn602.9 cmDiaz Dalton MD Work Phone: [facility] ServicesGiwwvhbtjx78-37-2978 11:33-0500Body mass index (BMI) [Ratio]42.89 kg/m2Diaz Dalton MD Work Phone: 1(756)018-[address] [place], [place] [address]Tgdgztgoyv62-44-2123 11:33-0500Body temperature 97.11 [degF]Diaz Dalton MD Work Phone: 1(241)13477[address] [place], [place] [address]Lmbkiaxyui17-94-6887 11:33-0500Body uiyksg326.97 kgDiaz Dalton MD Work Phone: [facility] ServicesHkarbxntbg93-25-9735 11:33-0500Diastolic blood dqdbmcye19 mm[Hg]Diaz Dalton MD Work Phone: 1(717)986-[address] [place], [place] [address]Cfhkqhwzcn95-88-3775 11:33-0500Heart hwxf833 /min Diaz Dalton MD Work Phone: [place] [address]Qenhttlotk97-52-4719 11:33-0500Respiratory rate22 /minDiaz Dalton MD Work Phone: [place] [address]Ewugddjcpt28-22-6449 11:33-5186PmK5% (BldA) [Mass fraction]98 %Diaz Dalton MD Work Phone: [facility] ServicesNckutfliff21-04-5492 11:33-0500Systolic blood coucfnif094 mm[Hg]Diaz Dalton MD Work Phone: [facility] ServicesTdtiqcuuiq75-19-0532 11:06-0500Body uhwybt378.9 cmCdenis See MD Work Phone: [facility]11-14-2024 11:06-0500Body mass index (BMI) [Ratio]44.18 kg/x2WzpuqtHair See MD Work Phone: 1(419)[address] [place], [place] 1707211-14-2024 11:06-0500Body vlcrol955.05 kgHair See MD Work Phone: 1(497)[address]11-14-2024 11:06-0500Diastolic blood ceihquvf86 mm[Hg]Hair See MD Work Phone: 1(839)[address]11-14-2024 11:06-0500Heart rate 90 /minHair See MD Work Phone: 1(519)[address]11-14-2024 11:06-4432GwH1% (BldA) [Mass fraction]99 %Hair See MD Work Phone: 1(474)[address]11-14-2024 11:06-0500Systolic blood fkadglvo836 mm[Hg]Hair See MD Work Phone: 1(665)[address]10-31-2024 09:10-0400Diastolic blood mm[Hg][facility]10-31-2024 09:10-0400 Heart rate90 /minUniversity [facility]als [facility]10-31-2024 09:10-0400Systolic blood wgmknlup330 mm[Hg][facility]10-10-2024 12:59-0400 Body jrkifk952.9 cmScharles Arrieta DO Work Phone: [facility]10-10-2024 12:59-0400Body mass index (BMI) [Ratio]43.42 kg/r1ZruwyqLindsay Arrieta DO Work Phone: [facility]10-10-2024 12:59-0400Body sdkukg116.24 kgLindsay Arrieta DO Work Phone: [facility]10-10-2024 12:59-0400Diastolic blood vrgoyrol04 mm[Hg]Lindsay Arrieta DO Work Phone: [facility]10-10-2024 12:59-0400Heart rate 93 /minScharles Arrieta DO Work Phone: [facility]10-10-2024 12:59-1302GbO8% (BldA) [Mass fraction]100 %Lindsay Arrieta DO Work Phone: [facility] HospitalComment on above:Arrived on 3Lnc of V948-25-0542 12:59-0400Systolic blood ouyhvvwu916 mm[Hg]Lindsay Arritea DO Work Phone: [facility]09-26-2024 14:16-0400Body .9 cmGary Miller DO Work Phone: [facility] ServicesZiikoeakbo30-61-2014 14:16-0400Body mass index (BMI) [Ratio]41.38 kg/d6MhbzvGary iMller DO Work Phone: [facility] ServicesElaxhlpwzi54-23-8718 14:16-0400Body njkroy75.34 kgGary Miller DO Work Phone: [facility] ServicesLwwbiefpgm10-32-0798 09:57-0400Body vtimtw454.9 cmDiaz Dalton MD Work Phone: [facility] [facility] ServicesAmxjbpptsk97-47-4220 09:57-0400Body mass index (BMI) [Ratio]41.38 kg/m2Diaz Dalton MD Work Phone: [facility] ServicesWsyixfpcmo97-54-4363 09:57-0400Body temperature 97.5 [degF]Diaz Dalton MD Work Phone: [facility] ServicesGpvkcqwqoi09-50-0938 09:57-0400Body oynnyt41.34 kgDiaz Dalton MD Work Phone: [facility] ServicesEwhffiwtnk40-16-8724 09:57-0400Diastolic blood uqzkujug44 mm[Hg]Diaz Dalton MD Work Phone: [facility] ServicesMbkpqfxosr21-93-3162 09:57-0400Heart rate90 /min Diaz Dalton MD Work Phone: [facility] ServicesYkpojhieeu95-75-3413 09:57-0400Respiratory rate20 /minDiaz Dalton MD Work Phone: [facility] ServicesZfckoiiaoi04-55-7814 09:57-1465NeI5% (BldA) [Mass fraction]99 %Diaz Dalton MD Work Phone: [facility] ServicesXytasrpxkf78-51-8224 09:57-0400Systolic blood pqvmqyky721 mm[Hg]Diaz Dalton MD Work Phone: [facility] ServicesGuxliixluy70-62-6101 14:07-0400Body ymdgtz236.9 cmDiaz Dalton MD Work Phone: [facility] ServicesZyjiynpayv70-58-8339 14:07-0400Body mass index (BMI) [Ratio]42.32 kg/m2Diaz Dalton MD Work Phone: [facility] ServicesYtnccfwfrp20-46-3278 14:07-0400Body temperature 97.3 [degF]Diaz Dalton MD Work Phone: [facility] ServicesQktegssrke79-03-4404 14:07-0400Body golyik898.61 kgDiaz Dalton MD Work Phone: [facility] ServicesMckgllnbut84-92-7819 14:07-0400Diastolic blood tgepjmli40 mm[Hg]Diaz Dalton MD Work Phone: [facility] ServicesDtxuandtln96-37-5621 14:07-0400Heart iedm057 /min Diaz Dalton MD Work Phone: [facility] ServicesQcqbeybroj94-04-1390 14:07-0400Respiratory rate20 /minDiaz Dalton MD Work Phone: [facility] ServicesNnohallkay79-91-1550 14:07-2964BcX7% (BldA) [Mass fraction]98 %Diaz Dalton MD Work Phone: [facility] ServicesIqkolknrlt28-63-2720 14:07-0400Systolic blood miggekia855 mm[Hg]Diaz Dalton MD Work Phone: [facility] ServicesRrdmfnnqyt06-78-3427 13:42-0400Body mass index (BMI) [Ratio]42.7 kg/z9Utibp Demar DO Work Phone: [facility] ServicesUcvvhhzvrl63-29-2561 13:42-0400Body vpxetg163.51 kgCorey Demar DO Work Phone: [facility] ServicesXahfjqqqoa46-64-5664 13:42-0400Diastolic blood bzubhuue56 mm[Hg]Feliz Demar DO Work Phone: [facility] ServicesToyphxggvz29-70-0500 13:42-0400Systolic blood edrsfnbj727 mm[Hg]Feliz Demar DO Work Phone: [facility] ServicesBdbphrkljn13-19-9515 10:51-0400Body upyuma277.9 Jacky Germain MD Work Phone: [facility]08-06-2024 10:51-0400Body mass index (BMI) [Ratio]43.58 kg/o2NfelaSmitha Germain MD Work Phone: [facility]08-06-2024 10:51-0400Body vnqplu562.55 kgSmitha Germain MD Work Phone: [facility]08-06-2024 10:51-0400Diastolic blood ekacarir76 mm[Hg]Smitha Germain MD Work Phone: [facility]08-06-2024 10:51-0400Heart rate 90 /minSmitha Germain MD Work Phone: [facility]08-06-2024 10:51-2319LcQ5% (BldA) [Mass fraction]100 %Smitha Germain MD Work Phone: [facility] HospitalComment on above:[place] [address]D307-75-6655 10:51-0400Systolic blood fpaydhbp001 mm[Hg]Smitha Germain MD Work Phone: [facility]06-06-2024 08:58-0400Body knsovm340.9 Janet Montalvoton DO Work Phone: [facility]06-06-2024 08:58-0400Body mass index (BMI) [Ratio]44.11 kg/l7XmlcisLindsay Arrieta DO Work Phone: [facility]06-06-2024 08:58-0400Body opgjjz160.82 kgLindsay Arrieta DO Work Phone: [facility]06-06-2024 08:58-0400Diastolic blood ttvyvwdd32 mm[Hg]Lindsay Arrieta DO Work Phone: [facility]06-06-2024 08:58-0400Heart rate 80 /minScharles Arrieta DO Work Phone: [facility]06-06-2024 08:58-5325AzY0% (BldA) [Mass fraction]98 %Lindsay Arrieta DO Work Phone: [facility]06-06-2024 08:58-0400Systolic blood fczvffuy255 mm[Hg]Lindsay Arrieta DO Work Phone: [facility]04-20-2024 11:37-0400Diastolic blood bamtydvy52 mm[Hg]Ezequiel Graff MD Work Phone: [facility]04-20-2024 11:37-0400Heart rate 81 /minMuarturo Graff MD Work Phone: [facility]04-20-2024 11:37-0400 Respiratory rate16 /minMuarturo Graff MD Work Phone: [facility]04-20-2024 11:37-2359OhD4% (BldA) [Mass fraction]97 %Ezequiel Graff MD Work Phone: [facility]04-20-2024 11:37-0400Systolic blood cyjhceec864 mm[Hg]Ezequiel Graff MD Work Phone: [facility]04-20-2024 07:00-0400Body mnabksfcndb72.9 [degF]Ezequiel Graff MD Work Phone: [facility]04-20-2024 05:05-0400Body mass index (BMI) [Ratio]42.65 kg/u9JheymzcEzequiel Graff MD Work Phone: [facility]04-20-2024 05:05-0400Body afxudk353.33 kgEzequiel Graff MD Work Phone: [facility]04-17-2024 21:17-0400Body uuscsy981.9 cmEzequiel Graff MD Work Phone: [facility]03-13-2024 09:05-0400Body .[address]03-13-2024 09:05-0400Body mass index (BMI) [Ratio]41.38 kg/c4Rkqmo[address]03-13-2024 09:05-0400Body [address]03-08-2024 11:07-0500Body height 154.9 cmLibby Finley MD Work Phone: [facility]03-08-2024 11:07-0500Body mass index (BMI) [Ratio]43.27 kg/n0BvgrrlsnLibby Finley MD Work Phone: [facility]03-08-2024 11:07-0500Body cnlhar235.87 kgLibby Finley MD Work Phone: [facility]03-08-2024 11:07-0500Diastolic blood bmxpyxrb93 mm[Hg]Libby Finley MD Work Phone: [facility]03-08-2024 11:07-0500Heart rate 100 /minLibby Finley MD Work Phone: [facility]03-08-2024 11:07-0500Systolic blood tpyprdqc939 mm[Hg]Libby Finley MD Work Phone: [facility]03-07-2024 08:55-0500Body mass index (BMI) [Ratio]43.27 kg/q8MnyzjujRyan Mcneal MD Work Phone: 1(913)328-[address] [place], [place] 5530203-07-2024 08:55-0500Body nepnmtrwwxk42.3 [degF]Ryan Mcneal MD Work Phone: 1(725)741-[address] [place], [place] 5530203-07-2024 08:55-0500Body lfmosk839.87 kgRyan Mcneal MD Work Phone: 1(694)[address] [place], [place] 5530203-07-2024 08:55-0500Diastolic blood emfuezig78 mm[Hg]Ryan Mcneal MD Work Phone: 1(336)[address] [place], [place] 5530203-07-2024 08:55-0500Heart rate 103 /minRyan Mcneal MD Work Phone: 1(930)[facility] [place], [place] 5530203-07-2024 08:55-0500 Respiratory rate18 /minRyan Mcneal MD Work Phone: 1(552)[address] [place], [place] 5530203-07-2024 08:55-2168EyH9% (BldA) [Mass fraction]95 %Ryan Mcneal MD Work Phone: 1(588)[address] [place], [place] 5530203-07-2024 08:55-0500Systolic blood irekvzzw800 mm[Hg]Ryan Mcneal MD Work Phone: 1(687)[facility] [place], [place] 5530201-30-2022 11:29-0500Body .5 [degF]Jamal Levine MD Work Phone: 1(609)[address] [place], [place] [address]Aobcye33-12-1959 11:29-0500Diastolic blood kjatrfkv48 mm[Hg]Jamal Levine MD Work Phone: 1(516)[address] [place], [place] [address]Qlojnd04-53-0498 11:29-0500Heart rate85 /min Jamal Levine MD Work Phone: 1(294)[address] [place], [place] [address]Sxcvfn06-97-0287 11:29-0500Respiratory rate16 /minJamal Levine MD Work Phone: 1(548)[address] [place], [place] [address]Hxwxev58-13-3002 11:29-1450CyO6% (BldA) [Mass fraction]97 %Jamal Levine MD Work Phone: 1(068)[address] [place] [address] Aqgnuy95-84-8584 11:29-0500Systolic blood mm[Hg]Jamal Levine MD Work Phone: 1(338)024-[address] [place] [address] Fbmlmq25-48-3987 06:00-0500Body mass index (BMI) [Ratio]43.59 kg/p7AsdrhJamal Levine MD Work Phone: [place] [address] Ucajnc28-43-2572 06:00-0500Body eeyeal583.24 kg Jamal Levine MD Work Phone: 1(099)[address] [place] [address] Ypitfv00-38-8018 09:30-0500Body lthcfa762.4 cm Jamal Levine MD Work Phone: [facility] Encounters Encounter DateEncounter TypeCare ProviderFacilityStart: 06-12-2025 End: 56-27-1873Aijbpkkrt to same day surgery centerRandall Soria MD-[facility]Start: 06-12-2025 End: 99-45-0179vwzxefliorMwts Naderer MD Work Phone: [facility] Work Phone: Start: 06-09-2025 End: 38-19-4871Mfvpotkdk encounterPayadiel Bailey [facility] Centerjose Physicians CardiologyComment on above:Surgical Or Dental ClearanceStart: 06-05-2025 End: 81-82-2915Nclraoefo Result EncounterMattyuridia KAPLAN Work Phone: noms External Department UnsolicitedStart: 06-05-2025 End: 59-33-2029Qhibmgouf Result EncounterMattyuridia KAPLAN Work Phone: noms External Department UnsolicitedStart: 06-05-2025 End: 08-67-7122ydgioumvqlBvez Naderer MD Work Phone: [facility] Work Phone: Start: 06-05-2025 End: 02-33-6385Vwablbr encounter procedureDiaz Dalton MD-[facility] Zhen Work Phone: Start: 06-03-2025 End: 31-82-8937Dismrv flowsYuridia KAPLAN Work Phone: [facility]opaedicsStart: 06-03-2025 End: 57-73-6924Itucvm flowsYuridia KAPLAN Work Phone: [facility]opaedicsStart: 06-03-2025 End: 56-64-9482Dbgsces encounter procedureMajuancarlos KAPLAN Work Phone: noms [facility] OrthopaedicsComment on above:Pre-op examination (Primary Dx)Start: 06-03-2025 End: 09-35-6549Zbrnewmvcgjgh examination doneMajuancarlos KAPLAN Work Phone: [facility] Work Phone: Start: 06-03-2025 End: 99-20-8732juodijztulFOIDHHL J MEYERNot AvailableStart: 05-29-2025 End: 85-58-3444Jglurynoj encounterJrBrian Harinder Shane Jackson DO Work Phone: noms Chris OrthopaedicsComment on above:? surgery Start: 05-26-2025 End: 51-97-7634Jtqotz outpatient visit 15 minutesCorey Demar DO Work Phone: noms Benny OBGYNComment on above:Pre-op examination; Pelvic pain; Genital warts; Pain of ovaryStart: 05-26-2025 End: 90-60-5459Kiaydzvxrxeol examination doneCorey Demar DO Work Phone: noms HealthcareStart: 05-26-2025 End: 38-53-7421gnsjcfxbrtZVAYR FAZIONot AvailableStart: 05-15-2025 End: 23-76-8987Qfscmyktu to same day surgery centerRandall Soria MD-[facility]Start: 05-15-2025 End: 42-71-2525lcldhesxyzZcrf Naderer MD Work Phone: [facility] Work Phone: Start: 05-14-2025 End: 90-35-8152Hnifvtfxm encounterSjade Otero RMAProMedjose Physicians Pulmonary/Sleep MedicineStart: 05-14-2025 End: 25-77-5503Fgljel outpatient visit 15 minutesStguthrie troy community hospitalyocasta Quiñonessyden[facility] CYTOLOGY TEACHER-PUBLIC WEIGHER Work Phone: [facility] Pulmonary/Sleep MedicineComment on above:Obstructive sleep apnea syndrome (Primary Dx); Dyspnea on exertion; Moderate persistent asthma without complication; Chronic hypoxic respiratory failure ([facility]-HCC); BMI 40.0-44.9, adult ([facility]); Obesity, morbid, BMI 40.0-49.9 ([facility])Start: 05-14-2025 End: 42-30-9111eivayoebdlQEVGEEMerit Health [facility] Ambulatory PPGStart: 05-07-2025 End: 59-36-4827Cpcgdu-up encounterShania Lopez MD Work Phone: [facility] Physicians Pulmonary/Sleep MedicineComment on above:Home O2 evaluationStart: 16-29-4375xdxkerzljbDCUO NADERERPDalton Sulphur Bluff HospitalStart: 05-02-2025 End: 18-45-7259BaqzksJojl Naderer MD Work Phone: NONH CW FMComment on above:Type 2 diabetes mellitus with hyperglycemia, with long-term current use of insulin ([facility])Start: 05-01-2025 End: 50-62-8284Qlertjbk Edgardo Soria MD-Pre-Surgical Testing Work Phone: Start: 05-01-2025 End: 89-41-5334Jkcaxol encounter Kimberley Soria MD-Pre-Surgical Testing Work Phone: Start: 05-01-2025 End: 44-24-6813Buogkb Juan José Otero RMAProMedica Physicians Pulmonary/Sleep MedicineComment on above:Hypoxia (Primary Dx); Dyspnea on exertionStart: 04-24-2025 End: 18-03-5806Razojxycb Result EncounterDiaz Dalton MD Work Phone: noms External Department UnsolicitedStart: 04-24-2025 End: 69-09-6445Gwvuzijoh Result EncounterDiaz Dalton MD Work Phone: noms External Department UnsolicitedStart: 04-23-2025 End: 69-87-0450Yktmorctp encounterJr. Harinder Jackson DO Work Phone: NOUF [facility] OrthopaedicsComment on above:Medial aspect of her eye and noseStart: 04-22-2025 End: 69-11-8610Eecima flowsheetJr. Harinder Jackson DO Work Phone: NOOB [facility] OrthopaedicsStart: 04-22-2025 End: 86-25-9918Qnqyxh flowsheetJr. Harinder Jackson DO Work Phone: NOMG [facility] OrthopaedicsStart: 04-22-2025 End: 85-13-6016Huuigg outpatient visit 25 minutesJr. Harinder Jackson DO Work Phone: NODM [facility] OrthopaedicsComment on above:Acute pain of left knee (Primary Dx); Acute medial meniscus tear of left knee, initial encounterStart: 04-22-2025 End: 06-10-4277bfmoujsytuVF., HARINDER JACKSONNot AvailableStart: 04-14-2025 End: 89-40-4095Vlzcxk flowsheetCorey Demar DO Work Phone: [facility] OBGYNStart: 04-14-2025 End: 37-02-1371Rgibsm flowsheetCorey Demar DO Work Phone: [facility] OBGYNStart: 04-14-2025 End: 39-52-1905Xwoacj outpatient visit 15 minutesCorey Demar DO Work Phone: N[facility] Benny OBGYNComment on above:Pelvic pain in female (Primary Dx); Nausea; Genital wartsStart: 04-14-2025 End: 86-69-2860yavojcsbowPRNWW FAZIONot AvailableStart: 04-10-2025 End: 62-80-4158ubqnsbirgwLmlzjhmp Brmarvin PTANOMS [facility]hen Physical TherapyComment on above:Acute pain of left knee (Primary Dx)Start: 04-10-2025 End: 74-83-2191Tfwtxn flowsheetMarshall Brink PTANOMS [facility] Start: 04-10-2025 End: 67-75-0781Vjpgfr flowsheetMarshall Brink PTANOMS [facility] Start: 04-07-2025 End: 16-06-0766Tjjqjrbob encounterUbaldo Mino PTANOMS [facility]hen Physical TherapyComment on above:Cx PT 04/07/25Start: 04-02-2025 End: 15-18-7757Vrugkb flowsheetMarshall Brink PTANOMS [facility] Start: 04-02-2025 End: 54-67-2081Zidipk flowsheetMarshall Brink PTANOMS [facility] Start: 04-02-2025 End: 88-67-2642yrcyjizypgOtvhlbyg Brink PTANOMS [facility] Physical TherapyComment on above:Acute pain of left knee (Primary Dx)Start: 03-28-2025 End: 92-49-3449Uqpyhwgsw encounterUbaldo Dos Santos PTANOMS CI PTComment on above:re: PT so farStart: 03-27-2025 End: 83-23-2542Fahsdmjdn encounterShama KAPLAN Work Phone: [facility] OrthopaedicsComment on above:called and said that therapy is making her pain worseStart: 03-26-2025 End: 27-41-8749Oecczj Savannah Dos Santos PTANOMS CI PTStart: 03-26-2025 End: 58-66-1171Zyqvew Savannah Dos Santos PTANOMS CI PTStart: 03-26-2025 End: 61-94-8721cfwsrxqsdzJyxxqsz Lawrence PTANOMS CI PTComment on above:Acute pain of left knee (Primary Dx)Start: 03-24-2025 End: 03-16-1771VrovukNeowrajade Rod Physicians Pulmonary/Sleep MedicineStart: 03-21-2025 End: 65-82-7101Hajmxe flowsheetSammantha Valadez PTNOMS CI PTStart: 03-21-2025 End: 28-99-5712Fxcivd flowsheetSammantha Valadez PTNOMS CI PTStart: 03-21-2025 End: 73-67-9846atpqrsncmlLnagkqtaq Valadez PTNOMS CI PTComment on above:Acute pain of left knee (Primary Dx)Start: 03-17-2025 End: 96-87-0001Kbeylxu encounter procedureCorey Demar DO Work Phone: noms BCP OBComment on above:Genital wartsStart: 03-17-2025 End: 25-28-8865khgnfbkxcgVETSZ FAZIONot AvailableStart: 03-14-2025 End: 82-65-0641Xbzsqt flowsheetJr. Harinder Jackson DO Work Phone: NOMS ORTHOStart: 03-14-2025 End: 43-96-9516Blxeei flowsheetJr. Harinder Jackson DO Work Phone: NOEF ORTHOStart: 03-14-2025 End: 11-15-6890Iamhib outpatient visit 15 minutesJr. Harinder Jackson DO Work Phone: NOMS PCF ORTHOComment on above:Acute medial meniscus tear of left knee, initial encounter (Primary Dx); Acute pain of left kneeStart: 03-14-2025 End: 30-95-2529succktfjelEW., HARINDER Holliday AvailableStart: 03-13-2025 End: 02-72-5998Ueflymhun encounterSjade Rod Physicians Pulmonary/Sleep MedicineStart: 03-13-2025 End: 46-52-6909Erfkca outpatient visit 25 minutesLindsay Arrieta DO Work Phone: [facility] Pulmonary/Sleep MedicineComment on above:Moderate persistent asthma without complication (Primary Dx); Chronic hypoxic respiratory failure ([facility])Start: 03-13-2025 End: 47-30-5493ljcsqebkstQBGAJF Georgette [facility] Ambulatory PPGStart: 03-11-2025 End: 05-42-8974Qtfkukoip encounterPronorthwest medical center Pharmacy Medication Management Work Phone: [facility] - Pharmacy Medication ManagementStart: 03-05-2025 End: 61-72-4419Fqyohweiz encounterJorge L Givens RNProMedjose Physicians CardiologyComment on above:PPMM referralStart: 03-04-2025 End: 41-58-8634Uardvdpfu Result EncounterMajuancarlos KAPLAN Work Phone: noms External Department UnsolicitedStart: 03-04-2025 End: 86-11-3257Otpmfzddt Result EncounterMajuancarlos KAPLAN Work Phone: noms External Department UnsolicitedStart: 02-27-2025 End: 13-26-3478Isbjdctyp encounterMajuancarlos KAPLAN Work Phone: noms FB ORTHOPAEDICSComment on above:in painStart: 02-25-2025 End: 21-31-3597Cqvuay outpatient visit 15 minutesMajuancarlos KAPLAN Work Phone: noms FB ORTHOPAEDICSComment on above:Internal derangement of left knee (Primary Dx); Acute pain of left kneeStart: 02-25-2025 End: 60-88-5007Quvgbd flowsheetShama KAPLAN Work Phone: noms FB ORTHOPAEDICSStart: 02-25-2025 End: 50-80-6029Hauihy flowsYuridia KAPLNA Work Phone: noms FB ORTHOPAEDICSStart: 02-25-2025 End: 18-95-2007Qhaijuuxd encounterSjade VEGAAProMedica Physicians Pulmonary/Sleep MedicineStart: 02-25-2025 End: 24-86-5470bepofqbmtpYTHNNPO J MEYERNot AvailableStart: 02-17-2025 End: 03-37-0714Ntyfborjn Ritesh Rod [facility] Pulmonary/Sleep MedicineStart: 02-10-2025 End: 11-02-9442Onxjhx Froy Dalton MD Work Phone: noms CWM FMStart: 02-10-2025 End: 69-14-4878Pvfmqq Froy Dalton MD Work Phone: NO CWM FMStart: 02-10-2025 End: 85-31-9174jvdaqkfhufMZKJ NADERERNot AvailableStart: 02-10-2025 End: 53-18-0767Cnylif outpatient visit 25 minutesDiaz Dalton MD Work Phone: noms CWM FMComment on above:Type 2 diabetes mellitus with hyperglycemia, with long-term [...] mass index (BMI) of40.0 to 44.9 in adult; Encounter for long-term (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 medications; Dyslipidemia (CMS/HCC); Primary osteoarthritis of both kneesStart: 02-03-2025 End: 62-69-1999aengqovaojKSQTCincinnati VA Medical Centertart: 01-03-2025 End: 31-57-4440Vlifcb outpatient visit 15 minutesKatelyn Recio MD Work Phone: [facility] CardiologyComment on above: Chronic heart failure with preserved ejection fraction (CMS-HCC) (Primary Dx); Primary hypertension; Dyspnea on exertion; Hyperlipidemia associated with type 2 diabetes mellitus (CMS-HCC)Start: 01-03-2025 End: 50-35-4301ivtjmksbroTMPN NADERERProMedica San Francisco Chinese Hospitaltart: 01-02-2025 End: 97-45-6593Iswrqfdgk encounterLeftyalon Patricia CMAProMedica Physicians CardiologyStart: 12-09-2024 End: 41-64-8024Hwjjwrone encounterSjade Otero RMAProMedica Physicians Pulmonary/Sleep MedicineStart: 12-04-2024 End: 52-84-1589Eggufn outpatient visit 25 minutessilvia Madrigal CYTOLOGY TEACHER-PUBLIC WEIGHER Work Phone: [facility] Phys[facility] Pulmonary/Sleep MedicineComment on above:Obstructive sleep apnea syndrome (Primary Dx); Noncompliance with CPAP treatment; Chronic hypoxic respiratory failure, on home oxygen therapy ([facility]); Obesity, Class III, BMI 40-49.9 (morbid obesity) ([facility])Start: 12-04-2024 End: 66-23-6132civgyhdjyzHHDWVG L KREGELLake County [facility] Ambulatory PPGStart: 11-07-2024 End: 07-44-7647Oqqxwgzane Dalton MD Work Phone: noms CW FMStart: 11-07-2024 End: 14-51-7662Pzkprmshun Dalton MD Work Phone: noMS CWM FMStart: 11-07-2024 End: 76-89-3800Dtmprd outpatient visit 25 minutesDiaz Dalton MD Work Phone: noms CW FMComment on above:Type 2 diabetes mellitus with hyperglycemia, with long-term current use of insulin ([facility]) (Primary Dx); Chronic heart failure with preserved ejection fraction (HFpEF) ([facility]); Mild episode of recurrent major depressive disorder (HCC) ([facility]); JOHN (generalized anxiety disorder) ([facility]); Gastroesophageal reflux disease without esophagitis; Class 3 severe obesity due to excess calories with serious comorbidity and body mass index (BMI) of40.0 to 44.9 in adult ([facility])Start: 11-07-2024 End: 96-22-7985npqitthuxhETKV Cesar AvailableStart: 11-01-2024 End: 28-43-9832Qbwlzhoh Result EncounterDiaz Dalton MD Work Phone: noms External Department UnsolicitedStart: 11-01-2024 End: 45-97-5274Rceghsih Result EncounterDiaz Dalton MD Work Phone: noms External Department UnsolicitedStart: 11-01-2024 End: 91-00-1617ougmnakabaHSWUMercy Health Lorain Hospitaltart: 10-28-2024 End: 67-69-5075Purtfx outpatient visit 25 minutesDiaz Dalton MD Work Phone: noms CW FMComment on above:Dehydration (Primary Dx); Nausea and vomiting, unspecified vomiting type; Type 2 diabetes mellitus with hyperglycemia, with long-term current use of insulin ([facility]); Class 3 severe obesity due to excess calories with serious comorbidity and body mass index (BMI) of40.0 to 44.9 in adult ([facility]); Chronic hypoxic respiratory failure ([facility]); Chronic heart failure with preserved ejection fraction (HFpEF) ([facility])Start: 10-28-2024 End: 88-48-3060Bschpv Froy Dalton MD Work Phone: noms CWM FMStart: 10-28-2024 End: 38-43-4418Fxnrkc Froy Dalton MD Work Phone: noms CWM FMStart: 10-28-2024 End: 13-38-8433hcbxzspzcaKTNW NADERERNot AvailableStart: 10-27-2024 End: 75-63-5398Setbjtdpq department patient visitMercy Health Lorain Hospitaltart: 10-09-2024 End: 07-91-9881Edeonm flowsJan Bowman DPM Work Phone: noms PODIATRYStart: 10-09-2024 End: 05-51-8112Dtafnn flowsheetCarmen Bowman DPM Work Phone: noms PODIATRYStart: 10-09-2024 End: 48-43-6078vqmlxozlhyYZDSMEQ S RUSHERNot AvailableStart: 10-09-2024 End: 52-74-3990Zwtxan outpatient visit 25 minutesCarmen Bowman DPM Work Phone: noms PODIATRYComment on above:Diabetic polyneuropathy associated with type 2 diabetes mellitus ([facility]/HCC) (Primary Dx); NeuritisStart: 10-07-2024 End: 96-19-2697Sxkcgy outpatient visit 25 minutesKatelyn Recio MD Work Phone: [facility] Hospitalca Physicians CardiologyComment on above: Dyspnea on exertion (Primary Dx); Chronic heart failure with preserved ejection fraction ([facility]); Type 2 diabetes mellitus with hyperglycemia, with long-term current use of insulin ([facility])Start: 10-07-2024 End: 51-98-8804piqeyohkzaSCFSCincinnati VA Medical Centertart: 10-04-2024 End: 58-47-2578Ubrfofkpr encounterSue Chow [facility]Med[facility] Card[facility] Start: 09-25-2024 End: [id number] Naderer MD Work Phone: [facility] FMComment on above:Type 2 diabetes mellitus with hyperglycemia, with long-term current use of insulin (CMS/HCC)Start: 09-23-2024 End: [id number] Naderer MD Work Phone: [facility] FMComment on above:Type 2 diabetes mellitus with microalbuminuria, with long-term current use of insulin ([facility])Start: 09-19-2024 End: 41-52-2533PobksbKuwf Naderer MD Work Phone: [facility] FMComment on above:Type 2 diabetes mellitus with microalbuminuria, with long-term current use of insulin ([facility] [facility])Start: 09-17-2024 End: 27-13-2165Jwhjoqzde encounterAllyson [facility] General SurgeryStart: 09-12-2024 End: 11-37-3183Oxsxnexifl and management of inpatientMercy Health Lorain Hospitaltart: 09-05-2024 End: 24-51-1832gnqspjfywbBzh Pat Phone Call Provider [address] [place] [address] - Pre AdmitStart: 09-05-2024 End: 56-42-4510szrxkovmymLTRRMercy Health Lorain Hospitaltart: 08-21-2024 End: 00-63-2930KlerohLlzo Naderer MD Work Phone: noms CWM FMComment on above:Mild episode of recurrent major depressive disorder (HCC) (CMS/HCC)Start: 08-15-2024 End: 96-95-4188Ycrzjm Vickie Dalton MD Work Phone: noms CWM FMComment on above:Carpal tunnel syndrome of left wristStart: 08-06-2024 End: 17-99-3291Iwaobs Froy Dalton MD Work Phone: noms CWM FMStart: 08-06-2024 End: 51-80-0689Awnetd Froy Dalton MD Work Phone: noms CWM FMStart: 08-06-2024 End: 50-94-7396Alhsrwdrg Result EncounterGeneric External Data ProviderNOMS External Department UnsolicitedStart: 08-06-2024 End: 09-47-9394Aifvfvp encounter procedureCorey Demar DO Work Phone: [facility] Work Phone: Start: 08-06-2024 End: 89-83-0899Zyjpgznn preventive med est patient 40-64yrsCorey Demar DO Work Phone: noms BCP OBComment on above:Well woman exam with routine gynecological examStart: 08-06-2024 End: 61-89-6627Aircyf outpatient visit 25 minutesDiaz Dalton MD Work Phone: noms CWM FMComment on above:Chronic hypoxic respiratory failure (CMS/HCC) (Primary Dx); Chronic heart failure with preserved ejection fraction (HFpEF) ([facility]); Type 2 diabetes mellitus with hyperglycemia, with long-term current use of insulin ([facility]); Pulmonary hypertension ([facility]); Colon cancer screening; Gastroesophageal reflux disease without esophagitisStart: 08-06-2024 End: 82-40-0824Qrnfairi SupportSmitha Germain MD Work Phone: [facility] - [facility] Comment on above:JOSE M (obstructive sleep apnea); Chronic hypoxic respiratory failure ([facility]); Severe obesity (BMI >= 40) ([facility])Start: 08-05-2024 End: 66-01-2791BhtnrmKupa Naderer MD Work Phone: noms CWM FMComment on above:Type 2 diabetes mellitus with hyperglycemia, with long-term current use of insulin ([facility])Start: 07-30-2024 End: 95-45-9530Swfjvacrs encounterA.O. Fox Memorial Hospitalnicki [facility] Call [facility] Comment on above:Abnormal LabCRITICAL LABStart: 07-30-2024 End: 72-98-2290ybhvhukvtbPglswrhx Lola CYTOLOGY TEACHER-PUBLIC WEIGHER Work Phone: [facility] Small Business Representative Sign InStart: 07-29-2024 End: 62-64-0989OmmxdbLqov Naderer MD Work Phone: noms CWM FMComment on above:Type 2 diabetes mellitus with hyperglycemia, with long-term current use of insulin ([facility])Start: 07-21-2024 End: 83-67-0813fmbkivxaslTQJCCape Fear Valley [facility]oke Hospital HospitalStart: 07-18-2024 End: 80-47-7542Featyg outpatient visit 25 minutesHair See MD Work Phone: [facility] Physicians CardiologyComment on above: Dyspnea on exertion (Primary Dx); Pulmonary hypertension ([facility])Start: 07-18-2024 End: 46-80-9613khjhswisszKNZLCook Children's Medical Center HospitalStart: 07-17-2024 End: 36-50-7319Vqvorlgfn encounterBethanie Patricia CMAProMedica Physicians CardiologyStart: 07-15-2024 End: 43-28-9174Gyjadg Danna Snowden MAGISTRATE JUDGE Work Phone: NOMS FB ORTHOPAEDICSStart: 07-15-2024 End: 06-73-3319Vedztl Danna Snowden MAGISTRATE JUDGE Work Phone: NORS FB ORTHOPAEDICSStart: 07-15-2024 End: 54-98-3067Eiuroq follow up visit related to original Mac Snowden MAGISTRATE JUDGE Work Phone: NORU FB ORTHOPAEDICSComment on above:Status post carpal tunnel release (Primary Dx)Start: 07-15-2024 End: 98-93-0750qkddilabrrAPKCO T OLSENNot AvailableStart: 07-10-2024 End: 83-33-7004Ntkwri OnlyDiaz Dalton MD Work Phone: [facility] CWM FMComment on above:Anxiety state (CMS/HCC) Start: 07-08-2024 End: 41-93-8435Ffqbvz Vickie Dalton MD Work Phone: [facility] CWM FMComment on above:Anxiety state (CMS/HCC) Start: 07-04-2024 End: 95-96-4102Zraeusjn SupportCincinnati Children'[facility] P[facility] NurseProMedica Physicians Cardiology Comment on above:Pulmonary hypertension (CMS-HCC) (Primary Dx)Start: 07-04-2024 End: 15-86-3140ydzfeodjloWEPOKindred Hospital HospitalStart: 07-03-2024 End: 65-45-9293Zhnqktakc encounterBethanie Patricia CMAProMedica Physicians CardiologyStart: 06-28-2024 End: 97-71-4624Wufrpgtlx department patient visitMARKindred Hospital HospitalStart: 06-26-2024 End: 36-36-8771zqceuumecvEBBXSV [facility]PITALNAProMedica [facility] HospitalStart: 06-24-2024 End: 06-66-3452Ksghkb Danna Snowden MAGISTRATE JUDGE Work Phone: NOBQ FB ORTHOPAEDICSStart: 06-24-2024 End: 28-64-9558Bftrmq flowsheetBarry Snowden MAGISTRATE JUDGE Work Phone: NORV FB ORTHOPAEDICSStart: 06-24-2024 End: 38-71-4713Tacyet follow up visit related to original Mac Snowden MAGISTRATE JUDGE Work Phone: noms FB ORTHOPAEDICSComment on above:Status post carpal tunnel release (Primary Dx)Start: 06-24-2024 End: 67-10-7877faxnpccawoHRVLI T OLSENNot AvailableStart: 06-20-2024 End: 39-23-6395Qmesdhpia encounterHaley Clear RNProMedica Physicians Cardiology Comment on above:Cardiac CathStart: 06-20-2024 End: 00-94-5537oiavwhzlrxRKTB NADERERProMedica Ardmore HospitalStart: 06-19-2024 End: 97-76-2862Gdriwpgky encounterBethanie Patricia [facility]ILLProMedica Physicians CardiologyStart: 06-18-2024 End: 17-54-9899Jfftcvaku encounterGary Miller DO Work Phone: noms FB ORTHOPAEDICSStart: 06-17-2024 End: 85-02-1073jovltkcdrhPkipf Andrew HuddlestonFacility:[facility] HospitalStart: 06-14-2024 End: 31-77-5456GjbqfxDeols T Olsen MAGISTRATE JUDGE Work Phone: noms FB ORTHOPAEDICSComment on above:Post-operative pain (Primary Dx)Start: 06-13-2024 End: 57-53-5371Fcuvqj outpatient visit 25 minutessade Arrieta DO Work Phone: [facility] Pulmonary/Sleep MedicineComment on above:Moderate persistent asthma without complication (Primary Dx); Obstructive sleep apnea syndrome; Pulmonary nodule; Chronic hypoxic respiratory failure ([facility])Start: 06-13-2024 End: 00-86-6175qbpxydnxqaDLJLOIColumbus Community Hospital Ambulatory PPGStart: 06-07-2024 End: 11-33-9581Oyybquvdz encounterDiaz Dalton MD Work Phone: noms CWM FMStart: 06-03-2024 End: 10-14-7476Axgizlshp encounterGary Miller DO Work Phone: noms CI ORTHOPAEDICSComment on above:medical clearance Start: 05-30-2024 End: 76-29-7946Nuifpj outpatient visit 15 minutesGary Miller DO Work Phone: noms FB ORTHOPAEDICSComment on above:Right wrist pain; Carpal tunnel syndrome, rightStart: 05-30-2024 End: 87-05-4455Jisgyd flowsTona Miller DO Work Phone: noms FB ORTHOPAEDICSStart: 05-30-2024 End: 20-48-5315Ymgvho flowsTona Miller DO Work Phone: noms FB ORTHOPAEDICSStart: 05-29-2024 End: 11-69-4180Tciqwc Froy Dalton MD Work Phone: noms CWM FMStart: 05-29-2024 End: 56-02-4288Ostfzg Froy Dalton MD Work Phone: noms CWM FMStart: 05-29-2024 End: 15-43-5529Rzivrn outpatient visit 25 minutesDiaz Dalton MD Work Phone: noms CWM FMComment on above:Acute pain of right knee (Primary Dx); Type 2 diabetes mellitus with microalbuminuria, with long-term current use of insulin ([facility]); Right carpal tunnel syndromeStart: 05-28-2024 End: 94-56-6008Cpsjcsbmj encounterSue Chow [facility]ILLProMedica Physicians Cardiology Start: 05-28-2024 End: 66-62-3211gjhgeagysxORQV NADJOHNOxanaWest Los Angeles Memorial Hospitaltart: 05-27-2024 End: 17-93-3718Kwyslwjfy encounterBethanie aPtricia CMAProMedica Physicians CardiologyStart: 05-16-2024 End: 41-39-0073Apwozqpwu department patient visitMercy Health Lorain Hospitaltart: 05-15-2024 End: 12-59-1139QbwxggMvlk Naderer MD Work Phone: noms CWM FMComment on above:Type 2 diabetes mellitus with hyperglycemia, with long-term current use of insulin ([facility]) (Primary Dx); Carpal tunnel syndrome of left wrist; Anxiety state (CMS/HCC)Start: 05-14-2024 End: 81-32-8220ugsynkvyzzHELNMercy Health Lorain Hospitaltart: 05-13-2024 End: 22-53-7076Wgvcpo Froy Dalton MD Work Phone: noms CWM FMStart: 05-13-2024 End: 62-78-7274Luuems Froy Dalton MD Work Phone: noms CWM FMStart: 05-13-2024 End: 28-12-7088Iszhnm outpatient visit 25 minutesDiaz Dalton MD Work Phone: noms CWM FMComment on above:Type 2 diabetes mellitus with hyperglycemia, with long-term current use of insulin (CMS/HCC) (Primary Dx); Right carpal tunnel syndrome; Chronic hypoxic respiratory failure (CMS/HCC); Mild episode of recurrent major depressive disorder (HCC) (CMS/HCC); JOHN (generalized anxiety disorder) (CMS/HCC); Generalized edema; Spondylosis without myelopathy; 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 elsewhere ([facility]/HCC)Start: 05-07-2024 End: 67-08-1445Tikkwkisz encounterSjade Otero AProMedica Physicians Pulmonary/Sleep MedicineComment on above:Chronic hypoxic respiratory failure (CMS-HCC) (Primary Dx); SOB (shortness of breath); HypoxiaStart: 04-24-2024 End: 82-02-2168Denkkz flowsheetCorey Demar DO Work Phone: noms BCP OBStart: 04-24-2024 End: 10-65-3381Lpqdks flowsheetCorey Demar DO Work Phone: noms BCP OBStart: 04-24-2024 End: 70-09-7444Typzjn outpatient visit 15 minutesCorey Demar DO Work Phone: NOMS BCP OBComment on above:Encounter to discuss test resultsStart: 04-23-2024 End: 24-80-9742jzxkeybmmyHTHECape Fear Valley Hoke Hospital HospitalStart: 04-22-2024 End: 45-37-7805skdsifgalzCZJRCape Fear Valley Hoke Hospital HospitalStart: 04-18-2024 End: 07-93-9433Eybmxcqbx encounterEmkeisha Skelton ANTHONY FB ORTHOPAEDICSStart: 04-16-2024 End: 10-63-9759teeypadrtrGpgvhAdelina MillerFacility:[facility] Centertart: 04-15-2024 End: 92-45-7111FlynalJyxjvAntonia Recio MD Work Phone: [facility] Physicians CardiologyComment on above:Med RefillStart: 04-10-2024 End: 13-45-6768Kzymhxhth encounterSmitha Germain MD Work Phone: [facility] - Sleep Disorders Comment on above:Sleep Lab (Comp PSG/PAP)Start: 04-09-2024 End: 15-36-3692Dktlly Juan José Otero AProMedjose Physicians Pulmonary/Sleep MedicineComment on above:Chronic hypoxic respiratory failure ([facility]) (Primary Dx); SOB (shortness of breath); HypoxiaStart: 04-09-2024 End: 40-25-5502Wmgivr outpatient visit 15 minutesSmitha Germain MD Work Phone: [facility] Physicians Pulmonary/Sleep MedicineComment on above:JOSE M (obstructive sleep apnea) (Primary Dx); Chronic hypoxic respiratory failure (CMS-HCC); Severe obesity (BMI >= 40) ([facility])Start: 04-03-2024 End: 65-27-9181uxbnmcrimtRvyyvAdelina Hermosillocility:[facility] Centertart: 03-21-2024 End: 51-32-6963Pjnezv OnlyConstance [facility] Physicians Pulmonary/Sleep MedicineComment on above:Moderate persistent asthma without complicationStart: 03-18-2024 End: 36-20-1030Ynnx/qhp telephone evaluation 07-24 Delia Arrieta DO Work Phone: [facility] Phys[facility] Pulmonary/Sleep MedicineComment on above:Chronic hypoxic respiratory failure ([facility]) (Primary Dx); Obstructive sleep apnea syndrome; Pulmonary nodule; Moderate persistent asthma without complicationStart: 03-12-2024 End: 51-62-9456Kvunffkyy encounterScharles Arrieta DO Work Phone: [facility] Pul[facility]/Sleep MedicineStart: 02-26-2024 End: 36-17-1630Qccdvfvlo encounterScharles Arrieta DO Work Phone: [facility] Pul[facility]/Sleep MedicineStart: 02-19-2024 End: 81-87-2564Ytfzbi OnlyLindsay Arrieta DO Work Phone: [facility] Physicians Pulmonary/Sleep MedicineComment on above:Dyspnea on exertion (Primary Dx); Chronic hypoxic respiratory failure (CMS-HCC); Moderate persistent asthma without complicationStart: 02-13-2024 End: 81-13-8401yxbgnqaouxAKWIAultman Alliance Community Hospitaltart: 02-08-2024 End: 01-49-1452Mcwgwq outpatient visit 25 minutesLindsay Arrieta DO Work Phone: [facility] Pulmonary/Sleep MedicineComment on above:Mediastinal lymphadenopathy (Primary Dx); Hypoxia; Pulmonary nodule; Severe obesity (BMI >= 40) (CMS-HCC); Dyspnea on exertionStart: 01-05-2024 End: 46-37-4612Brnzbfaem encounterScharles Arrieta DO Work Phone: [facility] Pulmonary/Sleep MedicineStart: 12-20-2023 End: 79-64-9767Rnoplxxkf department patient visitSvishnu Kent DO Work Phone: [facility] - Acute [facility] Comment on above:Hyperglycemia (Primary Dx); Acute cystitis without hematuria; HypoxiaStart: 70-71-6422Sctfmukzl encounterLibby Finley MD Work Phone: [facility] Pulmonary/Sleep MedicineStart: 11-15-2023 End: 52-55-7562Plviayhkg to [facility] Pat Phone Call Provider 4 Marci [facility]un[facility]: 11-10-2023 End: 82-51-9396Osbmfu outpatient new 45 minutesMomel Finley MD Work Phone: [facility] Pulmonary/Sleep MedicineComment on above:Mediastinal lymphadenopathy (Primary Dx); Pulmonary nodule; Morbid obesity ([facility])Start: 65-00-6313Uhlvht Opal Mckeon [facility]ILLProMedica [facility]icians Cardiothoracic Surgeons - Kuldip Jobst TowerComment on above: Mediastinal lymphadenopathy (Primary Dx)Start: 11-09-2023 End: 77-57-6680Pwsusa consultation new/estab patient 59 Charles Mcneal MD Work Phone: [facility] Cardiothoracic Surgeons - Kuldip Jobst TowerComment on above:Cavitary lesion of lungStart: 10-24-2023 Documentation procedureJealon Palomino LeadwoodProMedica Physicians Cardiothoracic Surgeons - Kuldip Jobst TowerStart: 79-99-7894Hnsiyfbxyazvn procedureBethanie Palomino WileyProMedica Physicians Cardiothoracic Surgeons - Kuldip Jobst TowerStart: 10-10-2023 End: 49-09-2047Gdwfux outpatient visit 15 minutesCorey Demar DO Work Phone: NOAU BCP OBComment on above:AmenorrheaStart: 10-05-2023 End: 53-00-7839Vvxzgr follow up visit related to original Mac Snowden NP Work Phone: noms FB ORTHOPAEDICSComment on above:Status post carpal tunnel release (Primary Dx)Start: 09-25-2023 End: 43-96-2199xhbtyfhwfkIsfau Andrew HuddlestonFacility:[facility] HospitalStart: 09-13-2023 End: 04-69-9121bzmgrrykdwHgtap Terrance PaulFacility:[facility] Centertart: 05-12-0496Twmgopezdvbjc procedureBethanie Palomino [facility] Physicians Cardiothoracic Surgeons - Kuldip [facility] Hospitaltart: 01-10-2023 End: 25-16-6080mvagkzycwiRXEC NADIYADarya .Facility:R7Nscnr: 12-26-2022 End: 93-80-1835njyrsnjuoeUO FELIZ DEMAR .Facility:X7Vikjx: 12-07-2022 End: 15-03-1481rapmrjnmsbJXXOS MUSTAPHAUniversity Valley Baptist Medical Center – Harlingentart: 11-21-2022 End: 49-46-2402gxrradqzuxSAUKD MUSTAPHAUniversity Valley [facility] Center – Harlingentart: 11-04-2022 End: 77-18-1275ukegsmfsclOBSMS MUSTAPHAUniversity Valley Baptist Medical Center – Harlingentart: 09-14-2022 End: 12-30-4137ivtoftomlrUL FELIZ DEMAR .Facility:G0Nngbs: 07-14-2022 End: 32-23-3211nkscpnqfdzZG FELIZ DEMAR .Facility:Y2Njsfe: 06-22-2022 End: 73-88-2124rjfzwlhvncDX FELIZ DEMAR .Facility:G0Wlydt: 02-23-2022 End: 26-51-2871qdumqfjgrxKO DIAZ Phipps NADERERFacility:D7Fymhj: 01-23-2022 End: 54-05-6536ubpuebzlsiVD DIAZ Phipps NADERERFacility:L9Kazlz: 59-93-3399frkbqioorr DIAZ MORALES NADERERFacility:[facility] HospitalStart: 09-28-2021 End: 23-01-7551Hleuhpmykl and management of inpatientThe Jewish Hospitaltart: 09-28-2021 End: 97-16-7960Kgyzmrjwry and management of inpatientJamal Levine MD Work Phone: stvz 1D Burn UnitStart: 06-09-2015 End: 48-29-6907Occtckaym for gynecological examination (general) (routine) without abnormal findingsJr. Stepanic DO Work Phone: NOQF HealthcareStart: 06-09-2015 End: 17-10-6747Qfczkhiwiddom examination normalGrant Sp MAGISTRATE JUDGE Work Phone: NOT[facility] Procedures DateProcedureProcedure DetailPerforming ClinicianStart: 82-49-4646XF Cataract PHACO W/IOL/Vitrectomy (Left)Diaz Dalton MD Work Phone: Start: 97-56-2706LOL BASIC METABOLIC PANELMattyuridia KAPLAN Work Phone: Start: 61-51-2506WWO 12-LEADCorey Demar DO Work Phone: Start: 29-19-9674HD Cataract PHACO W/IOL/Vitrectomy (Right)Diaz Dalton MD Work Phone: Start: 06-03-0713YL PELVIS W/ TRANSVAGINALGeneric External Data ProviderStart: 76-57-8097FYL CBC WITH AUTO DIFFDiaz Dalton MD Work Phone: Start: 79-96-7487WP KNEE LT WO CONMattyuridia KAPLAN Work Phone: Start: 95-46-4140Btxksfuips examination knee 1/2 views Shama KAPLAN Work Phone: Start: 53-69-5112Hpdrtwpcbh glycosylated y9rBuleDiaz Dalton MD Work Phone: Start: 65-82-9402HlvtobklqtmQcplhd Venia CMAStart: 42-54-0008CEG,APTIMA HPV,AGE GDLNCorey Demar DO Work Phone: Start: 42-93-1655Vwdvpwcihvr observation [Identifier] in Cervix by Cyto stainDiaz Dalton MD Work Phone: Start: 75-88-8900GfmzqhmbxalMrkm Naderer MD Work Phone: Start: 02-48-7500Zroule-up visitFollow-upLAURA L DEBENEDETTIStart: 52-04-5056Fkqbzm-up visitFollow-upSCHARLES Palomino [facility]LEHAVASU [facility] CENTERStart: 43-60-5923Padm bld gluc mntr dev cleared fda spec home useMuarturo Graff MD Work Phone: Start: 98-75-0603Rwnx bld gluc mntr dev cleared fda spec home useMuarturo Graff MD Work Phone: Start: 96-10-0603Svtzt metabolic panel calcium total Erin Mendez CYTOLOGY TEACHER-PUBLIC WEIGHER Work Phone: Start: 12-22-2023 End: 11-42-7596Ryol bld gluc mntr dev cleared fda spec home useMuarturo Graff MD Work Phone: start: 31-23-0124Rsmz bld gluc mntr dev cleared fda spec home useEzequiel Graff MD Work Phone: Start: 17-44-5382Mrfg bld gluc mntr dev cleared fda spec home useMuarturo Graff MD Work Phone: Start: 54-10-5191Qtlwv metabolic panel calcium total Erin Mendez CYTOLOGY TEACHER-PUBLIC WEIGHER Work Phone: Start: 63-06-8540Imta bld gluc mntr dev cleared fda spec home useEzequiel Graff MD Work Phone: Start: 16-86-9509Zssa bld gluc mntr dev cleared fda spec home useEzequiel Graff MD Work Phone: Start: 99-37-7722Qkwh bld gluc mntr dev cleared fda spec home useEzequiel Graff MD Work Phone: Start: 18-44-9329JVGR O2 EVALUATIONKynicki Zurita CYTOLOGY TEACHER-PUBLIC WEIGHER Work Phone: Start: 83-56-3828Ejrwebo quantitative blood xcpt reagent stripEddie Zurita CYTOLOGY TEACHER-PUBLIC WEIGHER Work Phone: Start: 14-42-0718Wcsqg metabolic panel calcium total Erin Desire Mendez CYTOLOGY TEACHER-PUBLIC WEIGHER Work Phone: Start: 84-45-4849Dbgd bld gluc mntr dev cleared fda spec home useEzequiel Graff MD Work Phone: Start: 26-41-6801WILHM OXIMETRY, SPOTCharity Desire Hamilton CYTOLOGY TEACHER-PUBLIC WEIGHER Work Phone: Start: 12-20-2023 End: 45-98-0083Nzcd bld gluc mntr dev cleared fda spec home useShayne A Kent DO Work Phone: Start: 96-24-3552Mfqcfx bodies serum quantitative Dayna Doe CYTOLOGY TEACHER-PUBLIC WEIGHER Work Phone: start: 11-45-2202Wrvrecbtvo exam chest single view Dayna Doe CYTOLOGY TEACHER-PUBLIC WEIGHER Work Phone: start: 64-97-9535Idflz dip stick/tablet rgnt auto w/o microscopyShayne A Kent DO Work Phone: Start: 12-20-2023 End: 50-06-6940Gljhjclpoanrf metabolic panelRachel D Gustabohectorvera CYTOLOGY TEACHER-PUBLIC WEIGHER Work Phone: start: 50-38-7784Retsllz bacterial quanttative colony count urineRachel D Brook CYTOLOGY TEACHER-PUBLIC WEIGHER Work Phone: start: 30-13-2431Fnp routine ecg w/least 12 lds trcg only w/o i&rRachel D Brook CYTOLOGY TEACHER-PUBLIC WEIGHER Work Phone: start: 16-83-2990Jqhjxhikeer observation [Identifier] in Cervix by Cyto Corby Dalton MD Work Phone: Start: 00-42-7937NkswluwgevsHmnyb Olsen NP Work Phone: Start: 04-99-0094Aiawu depression screening assessment Bethanie LoredoStart: 10-05-6670Tawyncdkztx observation [Identifier] in Cervix by Cyto stainJennifer WileyStart: 52-92-0205Qdgbuwamexpy [Mass/volume] in Urine by Test stripJennifer WileyStart: 85-23-4434Tshrajj blood reagent stripEugene Salas DO Work Phone: Start: 03-77-9219Tomhgxh blood reagent stripEugene Salas DO Work Phone: Start: 93-74-1988Itpnd metabolic panel calcium total Terrance Smalls PA-C Work Phone: Start: 00-36-8169XLUTDMEC PLATELET FRACTIONTerrance Smalls PA-C Work Phone: Start: 82-89-3009Fcqfvji blood reagent stripEugene Salas DO Work Phone: Start: 62-03-0995Hwulwra blood reagent stripEugene Salas DO Work Phone: Start: 66-68-7082Twtlxfv blood reagent stripEugene Salas DO Work Phone: Start: 82-89-1978Fawmw function panelEugene Salas DO Work Phone: Start: 29-32-1533Zonpctk blood reagent stripEugene Salas DO Work Phone: Start: 10-02-2021 End: 53-89-3291Udevf of phosphorus inorganicTerrance Smalls PA-C Work Phone: Start: 75-51-4926Mjxrirs blood reagent stripEugene Slaas DO Work Phone: Start: 46-73-9206Gjuan/antitoxin assay tissue culture Omar Lopez MD Work Phone: Start: 84-76-5656Cwxyuvv blood reagent stripEugene Salas DO Work Phone: Start: 10-01-2021 End: 61-15-6478Nyjoyyyvzbn panelTerrance Smalls PA-C Work Phone: Start: 62-98-4132Oh abdomen & pelvis w/o contrast materialEugene Salas DO Work Phone: Start: 95-65-8992Gftnx-dna/rna gi pthgn multiplex probe tq 12-25Eugene Salas DO Work Phone: Start: 33-20-1828RIBZHITSOUW PANEL, MOLECULAR, WITH COVID-19Eugene Salas DO Work Phone: Start: 83-46-9929Rafmnfo blood reagent stripEugene Salas DO Work Phone: Start: 10-01-2021 End: 80-31-5798Mobquzlsusb panelEugene Salas DO Work Phone: Start: 72-09-3370Tdzic of magnesiumTerrance Smalls PA-C Work Phone: Start: 31-35-3343QWXCEFIL PLATELET FRACTIONTerrance Smalls PA-C Work Phone: Start: 97-26-2002Dvyyasl blood reagent stripMaycol Gomez MD Work Phone: Start: 09-30-2021 End: 23-31-8137Jceyjiphtzs panelTerrance Smalls PA-C Work Phone: Start: 62-86-5136Mexaj dip stick/tablet reagent auto microscopyTerrance Smalls PA-C Work Phone: Start: 14-77-1116Vymnbjv blood reagent stripMaycol Gomez MD Work Phone: Start: 29-64-0945Hbotb gases any combination ph pco2 po2 co2 ddw8CxwimvTerrance Smalls PA-C Work Phone: Start: 09-30-2021 End: 99-60-9357Pngll metabolic panel calcium totalTerrance Smalls PA-C Work Phone: Start: 09-27-5411Szenjah blood reagent stripMaycol Gomez MD Work Phone: Start: 06-31-2274Npo prsmptv pthgnc organism scrn w/colony estimjAndrew M Jurgenson PA-C Work Phone: Start: 13-08-2826Yascefi blood reagent stripMaycol Gomez MD Work Phone: Start: 62-56-4426Bxhfebviql glycosylated k7jGxiuMaycol Gomez MD Work Phone: Start: 93-94-3260OQCMA METABOLIC PANEL W/ REFLEX TO MG FOR LOW KTricia R Bedoya CYTOLOGY TEACHER - MAGISTRATE JUDGE Work Phone: Start: 12-80-6374ADHHLNNQ REJECTIONMichaelmandshanon Giron Sra, MD Work Phone: Start: 36-02-7123Knoonrk blood reagent stripMaycol Gomez MD Work Phone: Start: 79-75-8656Zadjrtn blood reagent stripMaycol Gomez MD Work Phone: Start: 37-07-2464Djqooig blood reagent stripMaycol Gomez MD Work Phone: Start: 70-98-9266Qnqydnp blood reagent stripJamal Levine MD Work Phone: Start: 81-53-0810Wtsqn gases any combination ph pco2 po2 co2 gzb8JcakoJamal Levine MD Work Phone: Start: 09-29-2021 End: 40-35-7690Ccegp metabolic panel calcium totalHarmandlongp Bree Ahuja MD Work Phone: Start: 85-22-8544YYEJGECH Vasiliy Casarez MD Work Phone: Start: 15-98-7557Clmqj metabolic panel calcium total Harmandlongp Bree Ahuja MD Work Phone: Start: 29-09-3084Xmlsh metabolic panel calcium total Lesleyandeep Bree Ahuja MD Work Phone: Start: 28-93-7218Gkrmfxj blood reagent stripJamal Levine MD Work Phone: Start: 81-17-6805Mgskmst blood reagent stripJamal Levine MD Work Phone: Start: 09-28-2021 End: 97-84-7323Rnpwx metabolic panel calcium Jordanhersonshanon Giron Sra, MD Work Phone: Start: 09-28-2021 End: 32-11-1155Hytatug blood reagent stripJamal Levine MD Work Phone: Start: 09-28-2021 End: 36-47-9300Kszrs metabolic panel calcium Jordanhersonshanon Giron Sra, MD Work Phone: Start: 09-28-2021 End: 99-20-2224Piehjeo blood reagent stripJamal Levine MD Work Phone: Start: 51-60-0320Nkocjnp blood reagent stripJamal Levine MD Work Phone: Start: 09-28-2021 End: 00-60-3486Frtmt metabolic panel calcium Jordanhersonshanon Giron Sra, MD Work Phone: Start: 09-28-2021 End: 75-33-0236Inxgvbj blood reagent stripJamal Levine MD Work Phone: Start: 09-28-2021 End: 97-80-5568Yhqrqco bacterial quanttative colony count urineMi Giron Sra, MD Work Phone: Start: 94-89-4186Hvbqz dip stick/tablet rgnt auto w/o microscopyHarcara Giron Sra, MD Work Phone: Start: 47-28-7467Yujwk gases any combination ph pco2 po2 co2 orl1Enwamn Marco MDStart: 51-34-1457Lxdfsmswip exam chest single view Harmjorgito Giron Sra, MD Work Phone: Start: 09-28-2021 End: 49-64-4523Razwx metabolic panel calcium Jordanhersonshanon Giron Sra, MD Work Phone: Start: 51-41-8961BNXPQXB, BLOOD 1Harmabroderick Giron Sra, MD Work Phone: Start: 88-24-4321GJXLCTPH PLATELET FRACTIONHarcara Giron Sra, MD Work Phone: Start: 00-01-4294Abdrorn bacterial blood aerobic w/id isolatesMi Giron Sra, MD Work Phone: History of decompression of median nerveStatus post carpal tunnel releaseEset Min Snowden MAGISTRATE JUDGE Work Phone: History of decompression of median nerveStatus post carpal tunnel releaseGrant T Sp MAGISTRATE JUDGE Work Phone: History of decompression of median nerveStatus post carpal tunnel releaseGrant T Sp MAGISTRATE JUDGE Work Phone: Plan of Treatment DateCare ActivityDetailAuthorStart: 52-99-1925Rujwjtqfy for malignant neoplasm of colonNOMS HealthcareStart: 54-21-8838NNeY,Tdap and Td Vaccines (2 - Td or Tdap)DTaP,Tdap and Td Vaccines (2 - Td or Tdap)[facility] SystemStart: 51-54-9107SJwC/Tdap/Td vaccine (2 - Td or Tdap)DTaP/Tdap/Td vaccine (2 - Td or Tdap)[facility], IncStart: 88-42-1727Tknebkphc for malignant neoplasm of colon ColonoscopyProSheltering Arms Hospital SystemStart: 72-56-2233Lpzpkaxgi for malignant neoplasm of cervixPap SmearNOMS HealthcareStart: 96-17-2345Usvmntjlb for malignant neoplasm of cervixNOMS HealthcareStart: 95-95-6026Ekbhxzgw screening Diabetes: Retinopathy ScreeningNOMS HealthcareStart: 83-92-7676Msvlurhl screeningDiabetes: Retinopathy ScreeningNOMS HealthcareStart: 59-28-3941Yithzxkt screeningDiabetes: Retinopathy ScreeningNOMS HealthcareStart: 08-01-2026 Screening for malignant neoplasm of cervixPap SmearNOMS HealthcareStart: 86-62-8125Sjdqq BMI ScreeningAdult BMI ScreeningChillicothe [facility] SystemStart: 86-94-7692Rhcotre ScreeningTobacco ScreeningProSheltering Arms Hospital SystemStart: 93-89-2961Nswsm screening for proteinDiabetes: Urine Protein ScreeningNOMS HealthcareStart: 33-90-5144Tomtt BMI ScreeningAdult BMI ScreeningProTrinity Health System West Campusca Health SystemStart: 83-62-0794Aapgjovo screeningDiabetes: Retinopathy Screening [facility] HealthcareStart: 45-89-9466Szkri BMI ScreeningAdult BMI ScreeningProMedica Health SystemStart: 87-66-8283Zvgxyoq ScreeningTobacco ScreeningSouthwestern Vermont Medical CenterMedica Health SystemStart: 95-00-0822Oqzzxeu ScreeningTobacco ScreeningProMedica Health SystemStart: 49-67-7302Bxjej BMI ScreeningAdult BMI ScreeningProTrinity Health System West Campusca [facility] SystemStart: 73-55-5768Ujbatpc ScreeningTobacco ScreeningProMedica Bay Park Hospitalca [facility] Start: 50-23-7004Fazbo BMI ScreeningAdult BMI ScreeningProMedica Health System Start: 68-54-4354Hlqtnxl ScreeningTobacco ScreeningProMedica Health SystemStart: 55-17-4921Wqcla BMI ScreeningAdult BMI ScreeningProMedica Health SystemStart: 49-34-3616Wiioavf ScreeningTobacco ScreeningProMedica Health SystemStart: 24-37-7271Ieqcr BMI ScreeningAdult BMI ScreeningProMedica Health SystemStart: 45-34-3934Tmyrfdd ScreeningTobacco ScreeningProTrinity Health System West Campusca St[facility] SystemStart: 08-19-2025 End: 41-29-4130Vwamats encounter procedureNOMS BCP OBStart: 54-01-7361Pbbsj BMI ScreeningAdult BMI ScreeningProMedica Health SystemStart: 83-59-7425Vtppaqb ScreeningTobacco ScreeningProMedica Health SystemStart: 30-42-9446Lhzzx BMI ScreeningAdult BMI ScreeningProMedica St. [facility] SystemStart: 91-69-5380Ckcfhxf ScreeningTobacco ScreeningProMedica Health SystemStart: 45-59-7738Bhfud BMI ScreeningAdult BMI ScreeningProMedica St. [facility] SystemStart: 30-95-9840Nymjkdf ScreeningTobacco ScreeningProMedica Health SystemStart: 58-43-2321Wuyvlypvc for malignant neoplasm of cervixPap SmearProTrinity Health System West Campusca St[facility] SystemStart: 07-10-2025 End: 70-46-9166Ztimzix encounter gmctzbays54/06/2025 1:00 PM EST Office Visit [facility] [address] [place] [phone] Barry Snowden, MAGISTRATE JUDGE [address] [place] [address] NOMGer [facility] OrthopaedicsStart: 07-07-2025 End: 62-14-9264Llxhoea encounter procedureProMedica Physicians CardiologyStart: 11-16-9015Qposqwroa for malignant neoplasm of breastMaogramACADIA HEALTHCARE Healthcare Start: 06-30-2025 End: 18-59-5621Ooxoueq encounter ynoitgckr10/27/2025 10:10 AM EDT Office Visit [facility] CARRERA [address] [place] [address] Feliz Benz DO [address] [place] [address] CHELSEY DALYGYNStart: 31-72-2936Gspee BMI ScreeningAdult BMI ScreeningProMedica Bay Park Hospitalca Health SystemStart: 11-87-7769Ggacpcb ScreeningTobacco ScreeningProTrinity Health System West Campusca Health SystemStart: 67-30-2069Qdgde BMI ScreeningAdult BMI ScreeningProTrinity Health System West Campusca Health SystemStart: 39-62-7991Zpubzeq ScreeningTobacco ScreeningProTrinity Health System West Campusca Health SystemStart: 47-71-4710Fiwhf BMI ScreeningAdult BMI ScreeningProTrinity Health System West Campusca Health SystemStart: 17-51-1274Gzhzvnb ScreeningTobacco ScreeningProTrinity Health System West Campusca Health SystemStart: 06-12-2025 End: 58-62-4553OgznnxsidPike Community Hospitaltart: 06-90-8719Cutyqim referralUniversity Hospitals [facility] Work Phone: Start: 06-03-2025 End: 25-71-9883Inhtl metabolic 1998 panel - Serum or PlasmaBasic metabolic panel Lab Routine Pre-op examination Expected: 06/03/2025 (Approximate), Expires: NONH Healthcare Work Phone: Comment on above:Expected: 06/03/2025 (Approximate), Expires: 06/03/2026Start: 06-03-2025 End: 29-38-3715Mrpfazc encounter procedureNOHoward County Community [facility] and [facility] OrthopaedicsComment on above:Pre-op examination (Primary Dx)Start: 05-26-2025 End: 31-92-3543Emprwnh encounter erorlwixs30/22/2025 1:20 PM EDT Consult NOMGer CARRERA [address] [address] Feliz Benz DO [address] [facility] [address] [place] [address] CHELSEY GARZAtart: 05-22-2025 End: 61-06-9635Numibex encounter vsxemlock59/18/2025 1:30 PM EDT Office Visit [facility] [address] [place] [phone] Diaz Dalton MD [address] [place] [address] CHELSEY CASAS FMStart: 05-83-6204Hxbta BMI ScreeningAdult BMI ScreeningProTrinity Health System West Campusca Health SystemStart: 20-62-3174Ogoxpjz ScreeningTobacco ScreeningProMedica Bay Park Hospitalca St[facility] SystemStart: 05-15-2025 End: 98-54-1944Yyzpkuh encounter loxapiftt32/11/2025 1:00 PM EDT Office Visit [facility] [address] [place] [address] Diaz Datlon MD [address] [place] [address] [facility] FMStart: 05-15-2025 End: 28-87-5115JpioretaiPike Community Hospitaltart: 05-08-2025 End: 06-62-6318Zxmx O2 evaluationHome O2 evaluation Respiratory Care Routine Hypoxia Dyspnea on exertion Expected: 05/08/2025, Expires: 05/01/2026[facility] Work Phone: Comment on above:Expected: 05/08/2025, Expires: 05/01/2026Start: 05-06-2025 End: 14-97-6208goxxqstbot68/02/2025 10:00 AM EDT Infant Monitor [facility] Infant Monitor [address] [place] [address] [phone]. Charles Hospital Infant MonitorStart: 91-68-8791ZTZMX-19 Vaccine ( season)COVID-19 Vaccine ()[facility] SystemStart: 91-18-3750Vdocndhxu vaccinationChillicothe [facility] Center SystemStart: 00-82-9115Zxnnukuenk A1c measurementDiabetes: Hemoglobin E5RZUFU Healthcare Start: 74-34-5294Vbjhvif ScreeningTobacco ScreeningChillicothe VA Medical Center SystemStart: 04-22-2025 End: 36-15-7340Kifuzup encounter procedureNOMS FB ORTHOPAEDICSComment on above: ArrivedStart: 04-21-2025 End: 52-38-5979Thcpbam encounter rrfowzyzc28/18/2025 2:30 PM EDT Procedure Visit NOMGer DALYGYN [address] [phone] Feliz Benz, [address] [place] [address] NOMGer [place] OBGYNStart: 04-21-2025 End: 62-51-7449pphoppfwhjJQTI CI PTStart: 04-18-2025 End: 14-15-8635dvqbppywpuGPYB CI PTStart: 04-15-2025 End: 82-36-0908lzekgvwjwaAALI CI PTStart: 04-14-2025 End: 56-64-9752WB PelvisUS Pelvis w/ TV Imaging Routine Pelvic pain in female Expected: 04/14/2025, Expires: 10/15/2025[facility] Work Phone: comment on above:Expected: 04/14/2025, Expires: 10/15/2025Start: 04-14-2025 End: 96-37-6062Tojbsga encounter procedureNOMS Benny OBGYNComment on above: ArrivedStart: 04-10-2025 End: 26-66-5211kergpnhnsnRZEI CI PTStart: 85-50-9106Zdnfe BMI ScreeningAdult BMI ScreeningChillicothe [facility] Center SystemStart: 33-29-4021Oabcqgt ScreeningTobacco ScreeningChillicothe VA [facility] Center SystemStart: 04-08-2025 End: 36-58-1522Ectfpkp encounter procedureNOMS BCP OBStart: 04-07-2025 End: 85-91-5828zfysnqdtblVKRH CI PTStart: 04-03-2025 End: 61-06-6553Mxxrbsnt Kromqdh8304/03/2025 11:00 AM EDT Clinical Support [facility] - Pharmacy Medication Management [address] [place] [address] SnbAblxuvMercy Health Lorain Hospital - Pharmacy Medication ManagementStart: 04-02-2025 End: 45-16-4460ndaopkxruiIMGL CI PTComment on above:Acute pain of left knee (Primary Dx)Start: 03-28-2025 End: 29-85-1895tyfiojvbyv86/25/2025 12:00 PM EDT Treatment [facility] PT [address] [place] [address] Ubaldo Dos Santos PTANOMS CI PTStart: 03-26-2025 End: 71-26-1591jsjsyawdlvVFSL CI PTComment on above:Acute pain of left knee (Primary Dx)Start: 03-21-2025 End: 57-13-6303resxkikihaNWZQ CI PTComment on above:Acute pain of left knee Start: 03-20-2025 End: 63-60-8806Ebywrhli Tgiawtx6603/20/2025 1:30 PM EDT Clinical Support [facility] - Pharmacy Medication Management [address] [place] [address] CobZgdqmc [facility] - Pharmacy Medication ManagementStart: 03-18-2025 End: 94-29-4722Xvksxst encounter ezhgkvvyh47/15/2025 11:00 AM EDT Office Visit [facility] [address] [place] [address] Shama Medina, PA [address] [facility] [address] [place] [address] N[facility] FB ORTHOPAEDICSStart: 03-17-2025 End: 17-54-9063Siyxbkx encounter ixsjskzyd71/14/2025 2:30 PM EDT Procedure Visit [facility] BCP OB [address] [place] [address] Feliz Benz, [address] [place] [address] [facility] BCP OBStart: 03-14-2025 End: 06-65-2688Jkipvyq encounter procedureNOMS PCF ORTHOComment on above:Arrived Start: 03-13-2025 End: 54-32-4658Lecxyrg encounter ylrqcnsrl05/10/2025 9:30 AM EDT Office Visit [facility] [address] [place] [phone] Lindsay Arrieta, [address] [address] [facility]/Sleep MedicineStart: 02-25-2025 End: 39-33-5361Vsazwes encounter procedureNOMS FB ORTHOPAEDICSComment on above: Acute pain of right kneeStart: 02-25-2025 End: 66-61-7446XZ Knee - left WO contrastMR knee left wo IV contrast Imaging Routine Internal derangement of left knee Expected: 02/25/2025 (Approximate), Expires: 02/25/2026NONH Healthcare Work Phone: Comment on above:Expected: 02/25/2025 (Approximate), Expires: 02/25/2026Start: 02-10-2025 End: 73-85-6782Zurpm metabolic 1998 panel - Serum or PlasmaBasic metabolic panel Lab Routine Benign essential hypertension ([facility]) Expected: 02/10/2025 (Appr oximate), Expires: 02/10/2026NOMS HealthcareComment on above:Expected: 02/10/2025 (Approximate), Expires: 02/10/2026Start: 02-10-2025 End: 25-23-4770UJR W Auto Differential panel - BloodCBC and differential Lab Routine Encounter for long-term (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 medications Expected: 05/2025 (Approximate), Expires: 02/10/2026NOMS HealthcareComment on above: Expected: 02/10/2025 (Approximate), Expires: 02/10/2026Start: 02-10-2025 End: 17-25-5375Ukgcbsfslx A1c/Hemoglobin.total in BloodHemoglobin A1c Lab Routine Type 2 diabetes mellitus with hyperglycemia, with long-term current use of insulin ([facility]) Expected: 02/10/2025 (Approximate), Expires: 02/10/2026NOMS HealthcareComment on above:Expected: 02/10/2025 (Approximate), Expires: 02/10/2026Start: 02-10-2025 End: 11-55-5974Ltbkvur function 2000 panel - Serum or PlasmaHepatic function panel Lab Routine Encounter for long-term (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 medications Expected: 02/10/2025 (Approximate), Expires: 02/10/2026NOMS HealthcareComment on above: Expected: 02/10/2025 (Approximate), Expires: 02/10/2026Start: 02-10-2025 End: 82-87-6636Bayht 1996 panel - Serum or PlasmaLipid panel Lab Routine Dyslipidemia ([facility]) Expected: 02/10/2025 (Approximate), Expires: 02/10/2026 N[facility] HealthcareComment on above:Expected: 02/10/2025 (Approximate), Expires: 02/10/2026Start: 02-10-2025 End: 09-80-7792Efyybycfejxu/Creatinine panel in random UrineMicroalbumin / creatinine, urine ratio Lab Routine Type 2 diabetes mellitus with hyperglycemia, with long-term current use of insulin ([facility]) Expected: 02/10/2025 (Approximate), Expires: 02/10/2026NONH Healthcare Work Phone: Comment on above:Expected: 02/10/2025 (Approximate), Expires: 02/10/2026Start: 02-10-2025 End: 37-07-8805Jxbgbplawsw [Units/volume] in Serum or PlasmaTSH Lab Routine Class 3 severe obesity due to excess calories with serious comorbidity and body mass index (BMI) of 40.0 to 44.9 in adult Expected: 02/10/2025 (Approximate), Expires: 02/10/2026NONH HealthcareComment on above:Expected: 02/10/2025 (Approximate), Expires: 02/10/2026Start: 02-10-2025 End: 10-69-2373Gbpddcy encounter pbaobahfz12/09/2025 1:00 PM EDT [facility] [address] [place] [address] Diaz Dalton MD [address] [place] [address] [facility] AUGUSTO FMStart: 22-99-3161Cmoxc BMI ScreeningAdult BMI ScreeningProMedica Health SystemStart: 33-23-4819Pxhjicf ScreeningTobacco ScreeningProTrinity Health System West Campusca Health SystemStart: 02-03-2025 End: 31-37-3479Mftbdzm encounter ofbgjuyux05/02/2025 10:00 AM EDT Appointment [facility] - Pulmonary Function [address] [address] Lindsay Arrieta, DO [address] [address] [facility] - Pulmonary FunctionStart: 02-02-2025 End: 48-75-1873Foctcmkit function test Spirometry (Flow Volume Loop) pre/post short acting bronchodilator w/ DLCO (diffusion study)Pulmonary function test Spirometry (Flow Volume Loop) pre/post short acting bronchodilator w/ DLCO ( diffusion study) PFT Routine Moderate persistent asthma without complication Chronic hypoxic respiratory failure ([facility]) Expected: 02/02/2025 (Approximate), Expires: 06/13/2025[facility] Work Phone: Comment on above:Expected: 02/02/2025 (Approximate), Expires: 06/13/2025Start: 51-74-6487Scikfhhcei A1c measurementDiabetes: Hemoglobin W3EOQHT HealthcareStart: 01-08-2025 End: 88-27-5252Hnfhpbp encounter mjocnxuxs03/07/2025 1:15 PM EDT Procedure Visit [facility] [address] [place] [address] Carmen Bowman, DPM [address] [place], [place] [phone] [facility] PODIATRYStart: 01-03-2025 End: 79-48-1901Uhqwkth encounter owjhvzmds83/02/2025 9:15 AM EDT Office Visit [facility] [address] [place] [address] Katelyn Recio MD [address] [place], [place] [phone] [facility] CardiologyStart: 12-31-2024 End: 93-94-2042Xaavyvv encounter pkgkioxii89/29/2025 11:30 AM EDT Office Visit [facility] [address] [address] Smitha Germain MD [address] [place] [address] [facility]/Sleep MedicineStart: 12-04-2024 End: 15-68-3776Fmbirsl encounter /02/2025 1:00 PM EDT Office Visit [facility] [address] [place] [address] Pacheco Madrigal, CYTOLOGY TEACHER-PUBLIC WEIGHER [address] [facility], [address] [place] [address] [facility]/Sleep MedicineStart: 59-94-4504Nilwnrvvnn A1c measurementDiabetes: Hemoglobin Z6GPLTNEllett Memorial HospitalStart: 13-27-1702Vlmymxv ScreeningTobacco Screening [facility] Hospitaltart: 11-20-2024 End: 58-37-9885Jqudxfdd Dytffsp0511/20/2024 8:00 PM EDT Clinical Support [facility] - Sleep Disorders [address] [place] [address] Smitha Germain MD [address] [address] [facility] - Sleep DisordersStart: 97-29-3019Pttrs BMI ScreeningAdult BMI ScreeningProMedica Bay Park Hospitalca [facility] SystemStart: 56-71-5538Sgwzzmk ScreeningTobacco ScreeningProMedica Bay Park Hospitalca Health SystemStart: 14-48-1514Fbksa BMI ScreeningAdult BMI ScreeningProMedica Bay Park Hospitalca St[facility] SystemStart: 23-45-4046Pbbllmt ScreeningTobacco ScreeningProMedica Bay Park Hospitalca Health System Start: 11-07-2024 End: 85-43-7704Jqpaowb encounter procedureNOMS CWM FMComment on above:Arrived Start: 10-28-2024 End: 17-03-5790Krwbvld encounter hivxxofkw70/24/2025 2:15 PM EST Office Visit [facility] [address] [place] [address] Diaz Dalton MD [address] [place] [address] [facility] FMComment on above:ArrivedStart: 10-28-2024 End: 50-02-8309Xtsxqkhumf A1c/Hemoglobin.total in BloodHemoglobin A1c Lab Routine Type 2 diabetes mellitus with hyperglycemia, with long-term current use of insulin ([facility]) Expected: 10/28/2024 (Approximate), Expires: 10/28/2025NOEllett Memorial Hospital Work Phone: Comment on above:Expected: 10/28/2024 (Approximate), Expires: 10/28/2025Start: 60-53-9214Wgnoxnw ScreeningTobacco ScreeningCannon Memorial Hospitaltart: 17-24-0481Hdkvr BMI ScreeningAdult BMI ScreeningCannon Memorial Hospitaltart: 10-09-2024 End: 91-14-0451Zrtrelw encounter uzauauvxm72/05/2025 1:15 PM EST Office Visit [facility] [address] [place] [address] Carmen Bowman DPM [address] [place], [place] [phone] [facility] PODIATRYStart: 10-07-2024 End: 56-41-7587Cwuukxt encounter nmlryzsbs94/03/2025 8:15 AM EST Office Visit [facility] [address] [phone] Katelyn Recio MD [address] [place] [address] [facility] CardiologyStart: 04-45-8334Hhark screening for proteinDiabetes: Urine Protein ScreeningSaint Francis Hospital & Health ServicesStart: 09-25-2024 End: 12-08-2057Xyslxlz encounter fisyasotu78/22/2025 1:15 PM EST Office Visit [facility] [address] [place] [address] Cramen Bowman DPM [address] [place] [address] [facility] PODIATRYStart: 09-12-2024 End: 65-32-9809Dawqvgzst to same day surgery gcjmyt8309/12/2024 11:30 AM EST - 09/12/2024 12:00 PM EST Surgery [facility] [address] [place] [address] Aliya Solorzano, DO [address] [place] [address] COLONOSCOPY DIAGNOSTIC / SCREENING [48556 (CPT)][facility] ShawComment on above:COLONOSCOPY DIAGNOSTIC / SCREENING [33390 (CPT )]Start: 09-12-2024 End: 18-32-5696Bjwapvtmqf pskrbfcsuwlm67/09/2025 11:30 AM EST Anesthesia Event [facility] [address] [place] [address] Ector Saini, DO [address] [facility], [place] [phone] [facility] Start: 09-12-2024 End: 29-52-7090Bkyfofpijun flx dx w/collj spec when pfrmdCOLONOSCOPY DIAGNOSTIC / SCREENING Screen for colon cancer 09/12/2024 11:30 AM ESTFREMONT SURGERYStart: 63-39-5552Nshgaygakr hospital visit by /09/2025 11:30 AM EST Hospital Encounter [facility] [address] [place] [address] Aliya Solorzano, DO [address] [place], [place] [phone] [facility] ShawStart: 08-15-2024 End: 33-48-4690Svgaqkn encounter lsqmpyqwi24/12/2024 1:30 PM EST Office Visit [facility] [address] [place] [address] Diaz Dalton MD [address] [place] [address] [facility] CWM FMStart: 07-92-3253Cytnfycisf A1c measurementDiabetes: Hemoglobin M4NYCNE HealthcareStart: 08-06-2024 End: 22-54-0591Hdkxarn encounter procedureNOSANTA MARTA [facility]OSPITAL OBComment on above:Arrived Start: 07-25-2024 End: 28-45-1018Mzulk metabolic 2000 panel - Serum or PlasmaBasic Metabolic Panel Lab Routine Dyspnea on exertion Pulmonary hypertension (CMS-HCC) Expected: , Expires: 07/18/2025[facility] Work Phone: Comment on above:Expected: 07/25/2024, Expires: 07/18/2025Start: 07-18-2024 End: 91-54-5396Siryycn encounter xegdyhxoq11/14/2024 11:30 AM EST Office Visit [facility] [address] [place] [address] Hair See MD [address] [place] [address] [facility] CardiologyStart: 07-15-2024 End: 19-82-4608Jxzyaoq encounter jximphnxg40/11/2024 10:15 AM EST Office Visit [facility] [address] [place] [address] Barry Snowden, MAGISTRATE JUDGE [address] [place] [address] [facility] FB ORTHOPAEDICSStart: 94-93-0481Mdfem BMI ScreeningAdult BMI Screening [facility] SystemStart: 05-00-5737Buvuktu ScreeningTobacco Screening [facility] SystemStart: 07-04-2024 End: 29-81-3933Yyhbtezb Dhvyfal8007/04/2024 9:00 AM EDT Clinical Support [facility] [address] [place] [address] [facility] CardiologyStart: 09-45-3780Onhdftthx for malignant neoplasm of breastMammogramNOMS HealthcareStart: 06-26-2024 End: 59-55-9673Zjbktcjae to same day surgery hwgfkg0306/26/2024 8:30 AM EDT - 06/26/2024 9:30 AM EDT Surgery [facility] - Cardiac Cath [address] [place] [address] Nicolás Vallejo MD [address] [place] [address] Cardiac Invasive [facility] - Cardiac CathComment on above:Cardiac InvasiveStart: 51-30-2495Hsaczlflyc hospital visit by hqkllsfog15/23/2024 8:30 AM EDT Hospital Encounter [facility] - Cardiac Cath [address] [place] [address] Nicolás Vallejo MD [address] [place] [address] Pulmonary hypertension ([facility] - Cardiac CathComment on above:Pulmonary hypertension (CMS-HCC) Start: 06-24-2024 End: 67-65-5834Ygkgbgp encounter procedureNOMS FB ORTHOPAEDICSComment on above: ArrivedStart: 06-20-2024 End: 36-02-6518Snmvcst encounter otjwiqwyb56/17/2024 8:00 AM EDT Office Visit [facility] [address] [place] [id number] Nicolás Vallejo MD [address] [facility] [place] [address] Katelyn Recio MD [address] [place] [address] [facility] Start: 06-17-2024 End: 95-18-4081Hmjygab encounter npwilqdvm24/14/2024 9:00 AM EDT Procedure Visit [facility] EXT DEP Gary Miller, DO [address] [facility] [address] [place] [address] [facility] EXT DEPStart: 06-13-2024 End: 81-07-6129Vwwosso encounter vukhleybx86/10/2024 1:00 PM EDT Office Visit [facility] [address] [place] [address] Lindsay Arrieta, DO [address] [facility] [address] [address] [place] [address] [facility]/Sleep MedicineStart: 60-83-9729Ymmvloofcp ScreeningDepression ScreeningProMedica Health SystemStart: 05-30-2024 End: 79-39-1406Gujwjtx encounter procedureNOMS FB ORTHOPAEDICSComment on above: ArrivedStart: 05-29-2024 End: 44-33-8315Dltkvnm encounter cerzoqtlf53/25/2024 9:45 AM EDT Office Visit [facility] [address] [place] [address] Diaz Dalton MD [address] [place] [address] ArrivedNOMS CWM FMComment on above:ArrivedStart: 05-28-2024 End: 70-36-8710Gnkbrtm encounter znvnxnsun02/24/2024 11:30 AM EDT Office Visit [facility] Card[facility] [address] [facility] [address] [place] [address] Nicolás Vallejo MD [address] [place] [address] [facility] CardiologyStart: 05-16-2024 End: 94-26-8251Tldhihg encounter afpzvjknm98/12/2024 9:45 AM EDT Office Visit [facility] [address] [place] [address] Lindsay Arrieta, DO [address] [address] [facility]/Sleep MedicineStart: 70-55-1090Myxfnxsakp A1c measurementDiabetes: Hemoglobin F0IMTSO HealthcareStart: 05-14-2024 End: 54-96-1003Cqcnvmv encounter cevgbtcod82/10/2024 8:30 AM EDT Appointment [facility] - Cardiovascular [address] [place] [address] [phone] [facility] Start: 05-13-2024 End: 85-46-5400Vpslptxbmt A1c/Hemoglobin.total in BloodHemoglobin A1c Lab Routine Type 2 diabetes mellitus with hyperglycemia, with long-term current use of insulin ([facility]) Expected: 05/13/2024 (Approximate), Expires: 05/13/2025NONH Healthcare Work Phone: Comment on above:Expected: 05/13/2024 (Approximate), Expires: 05/13/2025Start: 05-13-2024 End: 16-95-8656Bsdztvh encounter procedureNOSOUTHWESTERN MEDICAL [facility] FMComment on above:Arrived Start: 26-58-6385XBGAJ-19 Vaccine ( season)COVID-19 Vaccine ( season)[facility]: 82-81-5088EEWRK-19 Vaccine ( season)COVID-19 Vaccine ( season)[facility] Start: 24-51-9777Fxpulzrlm vaccinationNONH HealthcareStart: 04-24-2024 End: 17-33-8871Imkyxfq encounter wzhzparym53/21/2024 1:50 PM EDT Office Visit [facility] [address] [place] [address] Feliz Benz, DO [address] [place] [address] ArrivedNOMS BCP OBComment on above:ArrivedStart: 04-23-2024 End: 17-50-0644KI Chest limited W contrast IVCT chest with contrast Imaging Routine Mediastinal lymphadenopathy Expected: 04/23/2024, Expires: 02/07/2025 [facility] Work Phone: Comment on above:Expected: 04/23/2024, Expires: 02/07/2025Start: 04-23-2024 End: 75-08-3287Fkrlqbm encounter mnzcsentt34/20/2024 8:30 AM EDT Appointment [facility] - CT Imaging [address] [place] [address] Lindsay Arrieta, DO [address] [address] [facility] - CT ImagingStart: 04-09-2024 End: 96-80-4024Vmwnrvp encounter byhptwrry40/06/2024 11:00 AM EDT Office Visit [facility] [address] [place] [phone] Smitha Germain MD [address] [address] [facility]/Sleep MedicineStart: 03-18-2024 End: 52-78-1147Spbacltizckc consultation with anudpyg3203/18/2024 3:00 PM EDT Telemedicine [facility] [address] [phone] Lindsay Arrieta, DO [address] [address] [facility]/Sleep MedicineStart: 03-12-2024 End: 85-23-0342Gkcxxebhlwvv consultation with enextbm1403/12/2024 2:00 PM EDT Telemedicine [facility] [address] [place] [phone] Lindsay Arrieta, DO [address] [address] [facility]/Sleep MedicineStart: 02-19-2024 End: 27-88-2852Cmom complete W/O contrastEcho complete W/O contrast Echocardiography Routine Dyspnea on exertion Chronic hypoxic respiratoryfailure (CMS-HCC) Expected: 02/19/2024, Expires: 02/18/2025[facility] Work Phone: Comment on above:Expected: 02/19/2024, Expires: 02/18/2025Start: 02-19-2024 End: 73-93-0810DA Chest PA and LateralX-ray chest 2 views Imaging Routine Dyspnea on exertion Expected: 02/19/2024, Expires: 02/18/2025ProShel[facility] Hospital SystemComment on above:Expected: 02/19/2024, Expires: 02/18/2025Start: 02-15-2024 End: 00-88-1245hsuavymhkr15/13/2024 2:[address] [facility] Monitor [address] [place] [address] [phone] Clinic Medina Hospital MonitorStart: 02-13-2024 End: 92-64-3748Ywzwofe encounter unxagaojg84/11/2024 8:00 AM EDT Appointment [facility] - Pulmonary Function [address] [place] [address] Lindsay Arrieta, DO [address] [facility] [address] [address] [place], [place] [facility] - Pulmonary FunctionStart: 02-08-2024 End: 77-52-1217Xopzgfn encounter vagjgwbsh01/06/2024 9:00 AM EDT Office Visit [facility] [address] [place] [phone] Lindsay Arrieta, DO [address] [facility] [address] [address] [place] [address] [facility]/Sleep MedicineStart: 11-22-2023 End: 86-79-5813Fjlvwmikm to same day surgery pnissc4311/22/2023 1:30 PM EDT - 11/22/2023 3:15 PM EDT Surgery [facility] - Endoscopy [address] [place] [address] Libby Finley MD [address] [place], [id number] ENDOBRONCHIAL ULTRASOUND BRONCHOSCOPYProTrinity Health System West Campusca [facility] EndoscopyComment on above: ENDOBRONCHIAL ULTRASOUND BRONCHOSCOPYStart: 11-22-2023 End: 48-00-0917GLHPNKJAWKFNC ULTRASOUND BRONCHOSCOPYENDOBRONCHIAL ULTRASOUND BRONCHOSCOPY LYMPH ADENOPATHY 11/22/2023 1:30 PM [facility] Start: 12-39-6833Qarquadwup hospital visit by qnpbwdfhu30/20/2024 1:30 PM EDT Hospital Encounter [facility] Endoscopy [address] [place] [address] Libby Finley MD [address] [place] [address] [facility] EndoscopyStart: 11-15-2023 End: 48-29-5396Lskwsahzb to fczbjtppaymvt11/13/2024 10:30 AM EDT Support Visit [facility] On [address] [place] [address] On [facility] Start: 11-02-2023 End: 86-32-3562Wdxfskd encounter jmtupqhkk76/29/2024 1:30 PM EST Office Visit [facility] [address] [place] [phone] Barry Snowden, MAGISTRATE JUDGE [address] [place] [address] [facility] FB ORTHOPAEDICSStart: 10-26-2023 End: 08-06-5826Mtqrrlm encounter tbfskyjfp40/22/2024 10:00 AM EST Appointment [facility] - Ultrasound [address] [place] [address] LweJcdunuMercy Health Lorain Hospital - UltrasoundStart: 10-17-2023 End: 99-11-4374Flfbeen encounter zkuuwdhqb15/13/2024 1:30 PM EST Office Visit [facility] [address] [place] [address] Diaz Dalton MD [address] [place] [address] [facility] FMStart: 10-11-2023 End: 34-17-1211Hwlpajutd, totalEstrogens, total Lab Routine Amenorrhea Expected: 10/11/2023 (Approximate), Expires: 10/11/2024N[facility] HealthcareComment on above: Expected: 10/11/2023 (Approximate), Expires: 10/11/2024Start: 10-11-2023 End: 74-20-0649DY for pregnancyUS PELVIS-TRANSVAG IF INDICATED Imaging Routine Amenorrhea Expected: 10/11/2023 (Approximate), Expires: 10/11/2024[facility] HealthcareComment on above:Expected: 10/11/2023 (Approximate), Expires: 10/11/2024Start: 10-10-2023 End: 22-26-4538Mrmpugl encounter oojppcisy26/06/2024 8:00 AM EST Office Visit [facility] [address] [address] Feliz Benz, DO [address] [place] [address] AmenorrheaNOMS [facility] OBComment on above:AmenorrheaStart: 01-94-7093Jkqsc screening for proteinUrine MicroalbuminMercy Health Perrysburg Hospital Start: 45-85-4869Fjdqcnuucs A1c measurementDiabetes: Hemoglobin B3EFCCDSaint Francis Hospital & Health ServicesStart: 01-80-4514WTSVW-19 Vaccine ( season)COVID-19 Vaccine ( season)[facility] Hospitaltart: 64-64-8931Oycjvrodp vaccinationSaint Francis Hospital & Health ServicesStart: 52-67-7996Urrqqdfuau A1c hgqnibxtgzqI9U test (Diabetic or Prediabetic)[facility] IncStart: 89-79-7723RHYSY-19 Vaccine (3 - Booster for Pfizer series)COVID-19 Vaccine (3 - Booster for Pfizer series)[facility]art: 72-65-9711Zndakuflv vaccinationFlu vaccine (#1)[facility], IncStart: 48-88-1829Zcaqwaneb for malignant neoplasm of cervixSelect Medical Specialty [facility], IncStart: 10-83-8622Zgmkcpdpk for malignant neoplasm of cervixPap smearSelect Medical Specialty Hospital [facility], IncStart: 25-55-9483Pkuoyhknc B vaccine (1 of 3 - Risk 3-dose series)Hepatitis B vaccine (1 of 3 - Risk 3-dose series)[facility], IncStart: 07-68-1782Fsbvo BMI Follow Up PlanAdult BMI Follow Up PlanCannon Memorial Hospitaltart: 14-35-0790Yrghwqbj foot examinationDiabetic Foot ExamProPike Community Hospitaltart: 1997 Diabetic retinal examDiabetic retinal examSelect [facility], IncStart: 08-67-6352Onvuu screening for proteinDiabetic microalbuminuria testSelect [facility] Special[facility], IncStart: 1994 HIV screeningHIV screenSelect Medical Specialty [facility], IncStart: 70-19-7289Bvryxjsalc ScreenDepression ScreenCleveland Clinic Mercy Hospital: 64-16-4046Gkxrcemo foot examinationDiabetic foot exam [facility], IncStart: 82-42-0534Xhaiigqr screeningDiabetes: Retinopathy Screening [facility] HospitalStart: 30-55-2534Slhrt panelLipid screenWilson Healthart: 30-78-0304Gnjzvnqtthgz 0-64 years Vaccine (1 of 2 - PPSV23)Pneumococcal 0-64 years Vaccine (1 of 2 - PPSV23)[facility] Healthart: 58-23-3533Pirykqup screening Diabetic Ophthalmology ExamCannon Memorial Hospitaltart: 95-17-7420Chlrgldpi C screeningHepatitis C screenSelect [facility], IncStart: 79-81-7636Yagasbhgp for malignant neoplasm of colonNOMS [facility] HospitalStart: 06-25-4704Gzmqag Use: DiabeticStatin Use: DiabeticMercy Health Perrysburg HospitalBaharlan arh hospital metabolic 2000 panel - Serum or PlasmaBasic Metabolic Panel Lab Routine Lab max of 3 days, Daily, for lab use only until discontinued starting 12/21/2023, 3 completedProMedica Bay Park Hospital8digits Ascension MacombComment on above:Lab max of 3 days, Daily, for lab use only until discontinued starting 12/21/2023, 3 completedBedside Glucose *Place/Obtain serum glucose if >500(>600 MRH) per glucometer.Bedside Glucose *Place/Obtain serum glucose if >500(>600 MRH) per glucometer. Point of Care Testing Routine 4X Daily (AC and at bedtime) until discontinued starting 12/21/2023, 10 [facility]8digits [facility] Comment on above:4X Daily (AC and at bedtime) until discontinued starting 12/21/2023, 10 completedCBC panel - Blood by Automated countCBC without diff Lab Routine Lab max of 3 days, Daily, for lab use only until discontinued starting 12/21/2023, 3 [facility] HospitalCast[facility] MacombComment on above:Lab max of 3 days, Daily, for lab use only until discontinued starting 12/21/2023, 3 completedCBC W Auto Differential panel - BloodCBC auto differential Lab Routine Daily until discontinued starting 09/29/2021, 4 ZubkaSumma Health Akron CampusTranSwitch Work Phone: comment on above:Daily until discontinued starting 09/29/2021, 4 completed End: 16-97-5696MddnneayyciwlCkmagtpqjpkwh Lab Routine Mediastinal lymphadenopathy Pulmonary nodule 1 Occurrences starting 11/10/2023 until 11/09/2024ProRemediation of NevadaComment on above:1 Occurrences starting 11/10/2023 until 11/09/2024 End: 76-60-1256Sfjtwjlckp includes GFR, serumCreatinine includes GFR, serum Lab Routine Mediastinal lymphadenopathy 1 Occurrences starting 02/08/2024 until 02/07/2025[facility] CenterRemediation of NevadaComment on above:1 Occurrences starting 02/08/2024 until 02/07/2025ulture, Anaerobic and AerobicCulture, Anaerobic and Aerobic Microbiology [employer] Print 09/30/2021 9:50 AM [employer] Work Phone: Follicle stimulating hormoneFollicle stimulating hormone Lab Routine Amenorrhea Ordered: 10/11/2023[employer] Work Phone: comment on above:Ordered: 10/11/2023 End: 86-23-0022Sqqdtixvu Assay for (1,3)-J-A-LsofrbRrwrwgqfl Assay for (1,3)-B-D-Glucan Lab Routine Mediastinal lymphadenopathy Pulmonary nodule 1 Occu rrences starting 11/10/2023 until 11/09/2024[employer] Work Phone: Comment on above:1 Occurrences starting 11/10/2023 until 11/09/2024Glucose [Mass/volume] in Serum or PlasmaPOCT glucose Point of Care Testing Routine 4X Daily (AC & HS) until discontinued starting 09/29/2021 [facility] Work Phone: comment on above:4X Daily (AC & HS) until discontinued starting 09/29/2021 End: 43-20-7970Pbhnrjcprbr antigen, serumHistoplasma antigen, serum Lab Routine Mediastinal lymphadenopathy Pulmonary nodule 1 Occurrences starting 11/10/2023 until 11/09/2024[facility] CenterRemediation of NevadaComment on above:1 Occurrences starting 11/10/2023 until 11/09/2024 End: 54-89-5441Bfanfrvxunf antigen, urineHistoplasma antigen, urine Microbiology Routine Mediastinal lymphadenopathy Pulmonary nodule 1 Occurrences starting 11/10/2023 until 11/09/2024[facility] SystemComment on above:1 Occurrences starting 11/10/2023 until 11/09/2024 End: 53-43-5455Witg O2 eval (desaturation screen)Home O2 eval (desaturation screen) Respiratory Care Routine Hypoxia Dyspnea on exertion 1 Occurrences starting 02/08/2024 until 02/07/2025[facility] SystemComment on above:1 Occurrences starting 02/08/2024 until 02/07/2025 End: 04-94-8199Zkudxwsjww pneu IGGHyperssens pneu IGG Lab Routine Mediastinal lymphadenopathy Pulmonary nodule 1 Occurrences jekhoemu09/08/2024 until 11/09/2024[facility] HospitalComment on above:1 Occurrences starting 11/10/2023 until 11/09/2024 End: 17-07-5265Yrmykiry RT ProtocolInitiate RT Protocol Respiratory Care Routine Continuous until discontinued starting 10/01/2021[facility] [employer] Work Phone: comment on above:Continuous until discontinued starting 10/01/2021[facility] Lab Routine Amenorrhea Ordered: 10/11/2023[facility] Health ServicesComment on above:Ordered: 10/11/2023Magnesium [Mass/volume] in Serum or PlasmaMagnesium Lab Routine Lab max of 3 days, Daily, for lab use only until discontinued starting 12/21/2023, 3 completedMercy Health Perrysburg HospitalComment on above:Lab max of 3 days, Daily, for lab use only until discontinued starting 12/21/2023, 3 completedOxygen Therapy - Maintain SpO2: 90%; *TYPISTS SUPERVISOR Guidelines for O2: Yes; Document: \phsi.[facility].org\epic\EPIC_Reference\Orders\Respiratory Care Guidelines\CPG Oxygen 2020.pdfOxygen Therapy - Maintain SpO2: 90%; *TYPISTS SUPERVISOR Guidelines for O2: Yes; Document: \[email or web address].[email or web address].org\epi c\EPIC_Reference\Orders\Respiratory Care Guidelines\CPG Oxygen 2020.pdf Respiratory Care Routine AsNeeded until discontinued starting 12/20/2023 [facility] Work Phone: Comment on above:As Needed until discontinued starting 12/20/2023Oxygen therapy [Minimum Data Set]Initiate Oxygen Therapy Protocol Respiratory Care Routine Daily until discontinued starting 09/28/2021[facility] CampusTranSwitch Work Phone: comment on above:Daily until discontinued starting 09/28/2021atient EducationKnow your [facility] Work Phone: [facility] Work Phone: End: 19-07-4341YCORENJQCD BLOOD SMEAR, PATH REVIEWMerTranSwitch Work Phone: comment on above:One Time for 1 Occurrences starting 10/01/2021 until 2Phosphate [Mass/volume] in Serum or PlasmaPhosphorus Lab STAT Tomorrow AM until discontinued starting 10/01/2021, 3 completedSumma Health Akron CampusTOK.tv Phone: commfan on above:Tomorrow AM until discontinued starting 10/01/2021, 3 completed End: 13-72-5256Wyojodepgpbseam 4 or more parameters with PAP titration Polysomnography 4 or more parameters with PAP titration Sleep Center Routine JOSE M (obstructive sleepapnea) Chronic hypoxic respiratory failure ([facility]-HCC) Severe obesity (BMI >= 40) ([facility]) 1 Occurrences starting 04/09/2024 until 04/09/2025 [facility] SystemComment on above:1 Occurrences starting 04/09/2024 until 04/09/2025 End: 70-21-4172LNFSDOUZ [employer] Phone: Comment on above:Once for 1 Occurrences starting 09/29/2021 until 09/29/2021 End: 28-25-5142DPOXAKKN [facility] UNIVERSITY MEDICAL CENTERLavaboom Phone: comment on above:Once for 1 Occurrences starting 09/30/2021 until 2ProgesteroneProgesterone Lab Routine Amenorrhea Ordered: 10/11/2023NONH HealthcareComment on above:Ordered: 10/11/2023 End: 83-92-6441WRH DiagnosticPSG Diagnostic Sleep Center Routine JOSE M (obstructive sleep apnea) Chronic hypoxic respiratory failure ([facility]-HCC) Severe obesity (BMI >= 40) ([facility]-H[facility]) 1 Occurrences starting 04/09/2024 until 04/09/2025 [facility] Work Phone: Comment on above:1 Occurrences starting 04/09/2024 until 04/09/2025Respiratory care evaluation onlyRespiratory care evaluation only Respiratory Care Routine As Needed until discontinued starting 10/01/2021[facility] [employer] Work Phone: comment on above:As Needed until discontinued starting 10/01/2021THIN PREP TIS PAP AND HR HPV DNATHIN PREP TIS PAP AND HR HPV DNA Pathology and Cytology Routine Well woman exam with routine gynecological exam Ordered: 08/06/2024[facility] [employer] Work Phone: comvhbq on above:Ordered: 08/06/2024 End: 17-97-4853Mkkvw ostomy eval and treatWound ostomy eval and treat Wound Ostomy Routine One Time for 1 Occurrences starting 09/28/2021 until 09/28/2021 [facility] [employer] Work Phone: comment on above:One Time for 1 Occurrences starting 09/28/2021 until 09/28/2021 Immunizations Immunization DateImmunizationNotesCare VmgeccjiCagbxopb07-32-5107Pqjebsagshup Conjugate PCV 20Marc Sha WERNER Work Phone: noEllett Memorial HospitalUkwdjeiklv65-83-5371pbpdknk toxoid, reduced diphtheria toxoid, and acellular pertussis vaccine, adsorbedGrant Snowden MAGISTRATE JUDGE Work Phone: [facility] Health ServicesJscuhubtmh10-51-6489jvywdlgdz, injectable, quadrivalent, preservative freeGrant Snowden MAGISTRATE JUDGE Work Phone: [facility] ServicesJspmbolwqt58-43-5026pemilbwkk virus vaccine, unspecified formulationGrant Snowden MAGISTRATE JUDGE Work Phone: [facility] Health ServicesRncvflpgfm48-32-8845nknjwshdw, injectable, quadrivalent, preservative freeDiaz Dalton MD Work Phone: noEllett Memorial HospitalPxfzhleawb21-47-6633lgkxyjmxf, injectable, quadrivalent, preservative freeDiaz Dalton MD Work Phone: noEllett Memorial HospitalEuensuzwkp05-85-9737vpverswrc, injectable, quadrivalent, preservative freeMarc Sha WERNER Work Phone: [facility] ServicesBhvxjqcpqn87-71-3537bpfnjoypd, injectable, quadrivalent, preservative freeDiaz Dalton MD Work Phone: noEllett Memorial HospitalAhvierbshu51-37-3809fdgqsop toxoid, adsorbedMarc Sha WERNER Work Phone: [facility] Payers DatePayer CategoryPayerPolicy [id number]-pay2017Medicaid [id number] 2.16.840.1.783392.3.57[id number] 2.16.840.1.164142.3.57[id number] 2.16.840.1.419802.3.57[id number] 2.16.840.1.186593.3.57[id number] 2.16.840.1.068863.3.57[id number] 2.16.840.1.141087.3.579.2.99193-96-5087Aakfjsf0547737 2.16.840.1.536802.3.579.2.48407-26-3270Phsybxr2193982 2.16.840.1.649978.3.579.2.58466-59-2439Aaebriy08239259 2.16.840.1.362081.3.579.2.53094-51-1237Ceiqbla48124796 2.16.840.1.186399.3.579.2.27890-64-4934Bpgvgmq41325237 2.16.840.1.211810.3.579.2.66782-15-4933Geuyskz23505035 2.16.840.1.052282.3.579.2.06206-81-4234Uidzlic07253715 2..840.1.822631.3.57[id number] 2..840.1.214851.3.579.2.510492-22-2450Mhgiews942872534 2.840.1.501643.3.579.2.828735-67-3247Uvlxvkw596030692 2..840.1.979203.3.579.2.434158-06-1269Hdtpvce974452129 2.0.1.617091.3.579.2.874057-89-6888Flcvatx047779077 2.0.1.203286.3.579.2.818550-49-0382Idpplnn094996170 2..840.1.632018.3.579.2.506134-57-0676Fgpokjy111797262 2.840.1.199257.3.579.2.704678-04-1635Ephznnd81294894 2.840.1.887516.3.579.2.012408-77-9262Qojjfqn00803067 2..840.1.228905.3.579.2.721463-31-6671Iyxvmic66838152 2..840.1.397294.3.579.2.302058-80-5273Megjhhy26022076 2.840.1.839253.3.579.2.756740-14-7635Hlpdbax48105956 2.840.1.737728.3.579.2.883970-84-3623Yaifneo85892576 2.840.1.008854.3.579.2.376089-48-1065Bvoxfti37330243 2.0.1.678963.3.579.2.845031-80-5428Weinqcb42301034 2.840.1.007554.3.579.2.829981-70-6981Ttrwiao81701847 2.0.1.519127.3.579.2.290915-29-4278Yeytexw85867364 2.0.1.604239.3.579.2.838669-16-7716Vnyvvsn02271088 2..1.018998.3.579.2.009205-16-4835Spipibl73053592 2.0.1.626180.3.579.2.162372-21-3835Fjwcbob19678248 2..1.171884.3.579.2.570312-70-2288Jryzkrd11594957 2..1.855705.3.579.2.618052-92-9021Elvyztn88267993 2.0.1.238386.3.579.2.325944-17-9663Gbruwro03985887 2..1.265227.3.579.2.444801-53-1730Zqbijlv815950203 2.840.1.870329.3.579.2.465413-50-1008Qicmgyi38836938 2.840.1.756882.3.579.2.142849-64-2494Erpqnlb004973441 2.16.840.1.224345.3.579.2.831975-84-8047Hriwkbc406221172 2..840.1.378635.3.579.2.719588-39-8295Racmzfh716585938 2.16.840.1.231795.3.579.2.742677-67-3746Mpmlmfe06320166 2.840.1.904920.3.579.2.153236-03-5173Kqikagc30865219 2.840.1.325874.3.579.2.399615-17-5926Eyjoajl79669868 2.840.1.356065.3.579.2.637598-73-1491Pnowgtv30134898 2.0.1.266625.3.579.2.199637-34-6298Tyyldje40696610 2.840.1.572398.3.579.2.740556-07-9596Rqkcmkd01586072 2.0.1.779993.3.579.2.402589-51-2455Cpgvfuk02072409 2.840.1.406945.3.579.2.564528-09-7383Drlghji15394525 2.0.1.082328.3.579.2.115730-29-4725Hnmuirk20011916 2.840.1.533965.3.579.2.146373-57-0256Ayqjzqh35056625 2.840.1.492609.3.579.2.540146-14-7553Rkjxeqf55502798 2.840.1.639996.3.579.2.796968-10-0887Udwlamq99266408 2.840.1.192285.3.57[id number] 2..840.1.903959.3.579.2.[id number] 2..840.1.206348.3.579.2.506865-25-1921Biltjur88176971 2..840.1.452589.3.579.2.175589-98-9286Gqldjpx6612853 2..840.1.723045.3.579.2.016498-25-3680Kfpsksy0532602 2.0.1.448897.3.579.2.977797-44-4563Czdgarf2169553 2..840.1.230635.3.579.2.032557-15-3047Wbuzbdw0389474 2.0.1.960166.3.579.2.802797-93-5792Hccxllp8958213 2..840.1.308769.3.579.2.991848-07-0540Vanlicz0998985 2.0.1.454288.3.579.2.662245-57-0491Swnwxmq2184618 2..840.1.390195.3.579.2.1259 [id number] 1..840.512305.1.13.239.2.7.3.542354.004Xhqpzih12187079 2.840.1.186648.3.579.2.861Glzsrlf93306319 2.840.1.370558.3.579.2.531 [id number] 2.840.1.145183.3.579.2.531 Social History DateTypeDetailFacilityStart: 09-29-2021 End: 89-49-8129Zcoquhe smoking status NHISNever smoked tobaccoSumma Health Akron CampusTranSwitch Work Phone: start: 09-29-2021 End: 40-19-7970Hngcsen use and exposureSmokeless tobacco non-userSumma Health Akron CampusTranSwitch Work Phone: start: 09-29-2021 End: 20-84-8435Dsyfwux intakeLifetime non-drinker (finding)GarettNewdea Work Phone: start: [phone] Assigned At BirthNot on fileSumma Health Akron CampusTranSwitch Work Phone: start: 10-05-2023 End: 23-88-8281Ktwwbkf of Social functionRegency Hospital Company Premium Store SystemStart: 10-05-2023 End: [id number] use panelProSheltering Arms Hospital SystemStart: 82-05-2066Ovpbwmd CommentCaffeine: 1-2 cups/day , nicole leiva [facility] ServicesStart: 06-27-2024 End: 77-59-3233Wrupzdlbx beverage intakeCurrent drinker of alcohol (finding) [facility] SystemHas the electric, gas, oil, or water Abine threatened to shut off services in your home in past 12MoYesPUniversity Medical Center Health SystemDo you belong to any clubs or organizations such as mormonism groups, unions, fraternal or athletic groups, or school groups?NoProMeddekalb regional medical center Health SystemAre you now , , , , never or living with a partner? [facility] SystemHow often to you have a drink containing alcohol?Never ProMel[facility] general hospital Health SystemHow many standard drinks containing alcohol do you have on a typical day?Patient does not drinkProNoland Hospital Dothan Health SystemDo you feel stress - tense, restless, nervous, or anxious, or unable to sleep at night because yourmind is troubled all the time - these days [OSQ]Only a littleChillicothe VA Medical Center SystemStart: 81-01-3511Lzpbkgc Commentoccasionally-once a monthChillicothe VA Medical Center SystemStart: 28-44-0643VohZjisch (finding)[facility] SystemStart: 09-05-2024 End: 82-32-1968Ggnbwbgtc beverage intakeEx-drinker (finding)[employer] SystemStart: 80-05-9912Jos Assigned At [facility] Medical Equipment Procedure CodeEquipment CodeEquipment Original TextEquipment IdentifierDates Phacoemulsification of cataract with intraocular lens implantationPosterior- chamber intraocular lens, pseudophakic [id number] FDAStart: 64-79-3599SVV ONE PEN NEEDLE TO INJECT MEDICATION SIX TIMES A [id number]: 58-84-1634FRC ONE PEN NEEDLE TO INJECT MEDICATION SIX TIMES A [id number]: 38-27-3910Gpy as [id number]: 01-08-2025 Goals DatePatient GoalDesired Activity/StatePersonal health goalComment on above: Evaluation of progress towards goal: In progress: Home with oxygen tomorrow. DC to home with oxygen today. DOC Taylor, 12/22/2023, 10:51 AMPersonal health goalComment on above: Evaluation of progress towards goal: Patient plans to return home with self care.Personal health goalComment on above: Evaluation of progress towards goal: Home with family support. Clinical Notes 09-29-2021 to 06-09-2025 Note Date & [id number] Miscellaneous Notes* Telephone Encounter - Maria C Bailey RN - 06/09/2025 10:47 AM EDT Surgeon: DR. Feliz Benz Type of surgery: Diagnostic Laproscopy w/ genital wart removal : Poss ANNE, Poss FOE, Poss BSO Date of surgery: 06/19/25 Surgery location: [place] Type of anesthesia: General On a blood thinner?: N/A On an antiplatelet?: N?A Date of last EK06/05/25- Preop Last office visit date and who they saw: 01/03/25- LLD Opt 3 Clearance requested due to abnormal preop EKG.. * Telephone Encounter - Katelyn Recio MD - 06/09/2025 10:47 AM EDT Low risk * Telephone Encounter - Jorge L Givens RN - 06/09/2025 10:47 AM EDT Preop clearance letter per LLD faxed via [email or web address] to Dr. Lagos office. Fax confirmed sent via Close[employer]. documented in this encounterProMedica Bay Park Hospital8digits [id number] Telephone encounter Note* Telephone Encounter - Maria C Bailey RN - 06/09/2025 10:47 AM EDT Surgeon: DR. Feliz eBnz Type of surgery: Diagnostic Laproscopy w/ genital wart removal : Poss ANNE, Poss FOE, Poss BSO Date of surgery: 06/19/25 Surgery location: [place] Type of anesthesia: General On a blood thinner?: N/A On an antiplatelet?: N?A Date of last EK06/05/25- Preop Last office visit date and who they saw: 01/03/25- LLD Opt 3 Clearance requested due to abnormal preop EKG.. [facility] Telephone encounter Note* Telephone Encounter - Katelyn Recio MD - 06/09/2025 10:47 AM EDT Low risk [facility]10-06-2025 Telephone encounter Note* Telephone Encounter - Joreg L Givens RN - 06/09/2025 10:47 AM EDT Preop clearance letter per LLD faxed via [employer] to Dr. Lagos office. Fax confirmed sent via [employer]. [facility]10-02-2025 Evaluation note* Diagnosis Onset Date Resolution Status Admit Date Benign essential hypertension acuteOctober 2024 10:48amChronic heart failure with preserved ejection fraction (HFpEF)acuteOctober 2024 10:48amClass 3 severe obesity due to excess calories with serious comorbidity andacuteOctober 2024 10:48amGAD (generalized anxiety disorder)acuteOctober 2024 10:48amLesion of skin of noseacuteOctober 2024 10:48amMild episode of recurrent major depressive disorderacuteOctober 2024 10:48amType 2 diabetes mellitus with hyperglycemia, with long-term current use ofacuteOctober 2024 10:48am [facility] Work Phone: [phone] 922-996709-30-2025 History of Present illness Narrative* ROSAURA Rosado - 06/03/2025 1:30 PM EDT Images from the original note were not included. GENERAL HISTORY AND PHYSICAL: NAME: Carissa Santos : 1980 HISTORY OF PRESENT ILLNESS: Carissa Santos is an 44 y.o. @ female. Here [...] Morbid obesity with BMI of 40.0-44.9, adult ([facility]) Nocturnal hypoxemia Nonsmoker OAB (overactive bladder) Obesity JOSE M (obstructive sleep apnea) Postoperative urinary retention Primary osteoarthritis of left knee Seasonal allergies Type 2 diabetes mellitus with diabetic polyneuropathy, with long-term current use of insulin ([facility]) Type 2 diabetes mellitus with hyperglycemia, with long-term current use of insulin ([facility]) Type 2 diabetes mellitus without complication ([facility]) Vitamin D deficiency PAST SURGICAL HISTORY: Past [...] (CELEXA) 40 mg, Oral, Daily Continuous Glucose Cigar Packer And Grader (FreeStyle Crystal 3 Wyano) device 1 Application, Does not apply, Continuous Continuous Glucose Sensor (FreeStyle Crystal 3 Sensor) [facility] [place] TO MONITOR BLOOD SUGAR DIRECTED. CHANGE [...] UNITS DAILY* insulin pen needle (Droplet Pen [place]) 32G x 4 mm [facility] Use as instructed lamoTRIgine (LAMICTAL) [...] numbness. Vitals: Body mass index is 38.92 kg/m . PHYSICAL EXAM: Physical Exam Constitutional: General: She [...] surgery scheduled. SURGERY INSTRUCTIONS NEEDS WALKER - [facility] EXERCISES GIVEN Follow up in about 5 weeks (around 07/10/2025) for Post-Op July 10 @ 1:00 in [place] with Barry. documented in this encounterSaint Francis Hospital & Health [id number] Telephone encounter Note* Telephone Encounter - Mary Shane - 05/29/2025 3:58 PM EDT Gynecology scheduled her for a procedure 06/20/25 & is scheduled for knee scope 06/26/[address] Jackson Asking if this is ok to have both in this time period? [facility] Health [id number] Miscellaneous Notes* Telephone Encounter - Mary Shane - 05/29/2025 3:58 PM EDT Gynecology scheduled her for a procedure 06/20/25 & is scheduled for knee scope 06/26/[address] Jackson Asking if this is ok to have both in this time period? documented in this encounterSaint Francis Hospital & Health [id number] History of Present illness Narrative* Talisha Johnson - 05/26/2025 1:20 PM EDT Reason for Appointment: Patient ID: Carissa Santos is a 44 y.o. female who presents for Pre-op Visit Patient presents today for Pre Op appointment. Patient is scheduled to undergo Diagnostic Laparoscopy, possible ANNE, possible FOE, possible BSO and genital wart removal on 06-20-[address] Benz at [facility]. MEDICATIONS Current Outpatient Medications Medication Instructions acyclovir [...] (CELEXA) 40 mg, Oral, Daily Continuous Glucose Cigar Packer And Grader (FreeStyle Crystal 3 Wyano) device 1 Application, Does not apply, Continuous Continuous Glucose Sensor (FreeStyle Crystal 3 Sensor) [facility] [place] TO MONITOR BLOOD SUGAR DIRECTED. CHANGE SENSOR EVERY 14 DAYS. Continuous Glucose Sensor (FreeStyle Crystal 3 Sensor) [facility] [place] USE TO MONITOR BLOOD SUGAR DIRECTED. CHANGE [...] UNITS DAILY* insulin pen needle (Droplet Pen [place]) 32G x 4 mm [facility] Use as instructed lamoTRIgine (LAMICTAL) 200 mg, [...] heart failure with preserved ejection fraction (HFpEF) ([facility]) 04/06/2023 Equinus deformity of left foot 04/06/2023 Gastroesophageal reflux disease 04/06/2023 Genital warts 04/06/2023 Hot flashes due to menopause 04/06/2023 Type 2 diabetes mellitus with microalbuminuria, with long-term current use of insulin ([facility]) 04/06/2023 Internal derangement of left shoulder 04/06/2023 Irritable bowel syndrome with diarrhea 04/06/2023 Mild developmental delay 09/29/2021 Migraine without aura and without status migrainosus, not intractable 04/06/2023 Mild episode of recurrent major depressive disorder 04/06/2023 Class 3 severe obesity due to excess calories with serious comorbidity and body mass index (BMI) of40.0 to 44.9 in adult ([facility] 11/21/2022 Type 2 diabetes mellitus with polyneuropathy ([facility]) 06/10/2021 Obstructive sleep apnea syndrome 09/30/2009 Osteoarthritis of knee 04/06/2023 Overactive bladder 04/06/2023 Panic disorder without agoraphobia 11/12/2009 Dyslipidemia 04/22/2010 Spondylosis without myelopathy 08/10/2010 Obesity hypoventilation syndrome ([facility]) 01/04/2024 Benign essential hypertension 01/04/2024 Right carpal tunnel syndrome 01/04/2024 Type 2 diabetes mellitus with hyperglycemia, with long-term current use of insulin ([facility]) 02/12/2024 Moderate persistent asthma without complication ([facility]) 02/19/2024 Pulmonary hypertension ([facility]) 08/06/2024 Dehydration 10/28/2024 Nausea & vomiting 10/28/2024 Encounter for long-term (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 medications 02/10/2025 Resolved Ambulatory Problems Diagnosis Date Noted Acute kidney injury (DREW) with acute tubular necrosis (ATN) 09/30/2021 Acute pain of left shoulder 04/06/2023 Shoulder joint pain 04/06/2021 Carpal tunnel syndrome of left wrist 04/06/2023 Convulsions in the ([facility]) 09/30/2009 Cubital tunnel syndrome on left 11/04/2022 Fecal incontinence 06/22/2016 High anion gap metabolic acidosis 09/30/2021 Hyperglycemia 03/01/2019 Mild intellectual disability 09/30/2009 Other chronic pain 04/06/2023 Pneumonia due to infectious organism 09/29/2021 Poorly controlled diabetes mellitus ([facility]) 08/10/2015 Normal gynecologic examination 06/09/2015 Missed period 04/06/2023 DKA, type 1, not at goal ([facility]) 09/27/2021 Type 2 diabetes mellitus ([facility]) 09/30/2009 Cavitary lesion of lung 08/10/2023 Other chest pain 08/10/2023 Hypoxia 01/04/2024 Chronic hypoxic respiratory failure ([facility]) 02/19/2024 Acute pain of right knee 05/29/2024 Past Medical History: Diagnosis Date Ankle fracture Anxiety and depression At low risk for fall Bilateral leg edema Chest pain, central Chronic left shoulder pain Chronic pain Chronic respiratory failure ([facility]) Epilepsy ([facility]) GERD (gastroesophageal reflux disease) History of being hospitalized History of medical problems Hyperlipidemia Insomnia, persistent MDD (major depressive disorder), recurrent episode, mild Morbid obesity with BMI of 40.0-44.9, adult ([facility]) Nocturnal hypoxemia Nonsmoker OAB (overactive bladder) Obesity JOSE M (obstructive sleep apnea) Postoperative urinary retention Primary osteoarthritis of left knee Seasonal allergies Type 2 diabetes mellitus with diabetic polyneuropathy, with long-term current use of insulin ([facility]) Type 2 diabetes mellitus without complication ([facility]) Vitamin D deficiency HISTORY PAST MEDICAL HISTORY SOCIAL HISTORY Past Medical History: Diagnosis Date Ankle fracture Anxiety and depression At low risk for fall Bilateral leg edema Chest pain, central Chronic left shoulder pain Chronic pain Chronic respiratory failure ([facility]) Dyslipidemia Epilepsy ([facility]) Childhood epilepsy JOHN (generalized anxiety disorder) Genital warts GERD (gastroesophageal reflux disease) History of being hospitalized pneumonia, diabetes, infection [10/29/21-11/05/21] History of medical problems mild mental retardation Hyperlipidemia Insomnia, persistent Irritable bowel syndrome with diarrhea MDD (major depressive disorder), recurrent episode, mild Migraine without aura and without status migrainosus, not intractable Morbid obesity with BMI of 40.0-44.9, adult ([facility]) Nocturnal hypoxemia Nonsmoker OAB (overactive bladder) Obesity JOSE M (obstructive sleep apnea) Postoperative urinary retention Primary osteoarthritis of left knee Seasonal allergies Type 2 diabetes mellitus with diabetic polyneuropathy, with long-term current use of insulin ([facility]) Type 2 diabetes mellitus with hyperglycemia, with long-term current use of insulin ([facility]) Type 2 diabetes mellitus without complication ([facility]) Vitamin D deficiency Social History Tobacco Use [...] reviewed, and patient is to proceed to [facility] OR. Follow Up: Patient is to follow up between 1-2 weeks post operative to assess proper healing and recovery fromprocedure. Documented by Arlene Mullen LPN on behalf of: Feliz Benz DO documented in this encounterSaint Francis Hospital & Health [id number] Miscellaneous Notes* Telephone Encounter - MOIZ Andrew - 05/14/2025 2:38 PM EDT Updated oxygen therapy order, home oxygen evaluation results, and office note faxed directly to [facility] Asian Studies Professor Valeriy and Director Learning And Development Dahiana via email. documented in this encounterMercy Health [facility]09-10-2025 Telephone encounter Note* Telephone Encounter - MOIZ Andrew - 05/14/2025 2:38 PM EDT Updated oxygen therapy order, home oxygen evaluation results, and office note faxed directly to [facility] Asian Studies Professor Valeriy and Director Learning And Development Dahiana via email. [facility]09-10-2025 History of Present illness Narrative* Pacheco Madrigal, [place]-[employer]HER - 05/14/2025 12:00 PM EDT Chief Complaint: Carissa Santos is a 44 y.o. female present for follow up visit regarding for oxygen re-certification HPI: Patient is accompanied by: Self The patient reports that she is doing well on 2 L of oxygen when out and about in 3 L of oxygen while at home. She reports that she is using and benefitting it at all times. Currently she is only using the 2 L of oxygen at because she reports that she has recently moved and does not have a tablenext to her back which with full her PAP machine. She reports that she does plan on starting wearing this going forward but is going to work on that today. She reports that she feels her breathing isdoing well she denies any dyspnea, fever, chills, chest pain or hemoptysis. She reports that she isusing Trelegy daily and has not used her albuterol inhaler since her last appointment in our officein March. She has not picked up her nebulizer machine but does have plans to get a hold of her [employer] to pick it up. She denies any fever, chills, chest pain, shortness of breath, phlegm, cough or hemoptysis. Denies any ER visits or hospitalizations since she last visit in our office. EPWORTH SLEEPINESS SCALE Sitting and Reading: Never Watching TV: Never Sitting inactive in a public place (theater, meeting): Never As a passenger in a car for an hour without a break: Never Lying down in the afternoon to rest: Never Sitting and talking to someone: Never Sitting quietly after lunch (without alcohol): Never In a car, while stopped for a few minutes in traffic: Never Total: 0 OARRS REVIEWED: Reviewed: no PMH @ Past Medical History: Diagnosis Date Anxiety Deep vein thrombosis (CMS-HCC) Dental disease no teeth Depression Diabetes mellitus type I (CMS-HCC) Elevated cholesterol GERD (gastroesophageal reflux disease) Hyperlipidemia Hypertension Lymphadenopathy 2023 MR (mental retardation) Obesity Panic disorder Visual impairment PERTINENT HISTORY: Her pertinent medical history includes Past Medical History: Diagnosis Date Anxiety Deep vein thrombosis (CMS-HCC) Dental disease no teeth Depression Diabetes mellitus type I (CMS-HCC) Elevated cholesterol GERD (gastroesophageal reflux disease) Hyperlipidemia Hypertension Lymphadenopathy 2023 MR (mental retardation) Obesity Panic disorder Visual impairment CURRENT MEDICATIONS: Reviewed with patient. Current Outpatient Medications: albuterol (PROVENTIL HFA;VENTOLIN HFA) 90 mcg/actuation inhaler, Inhale 2 puffs every 6 (six) hoursas needed for wheezing or shortness of breath., Disp: 18 g, Rfl: 0 albuterol (PROVENTIL,VENTOLIN) 2.5 mg /3 mL (0.083 %) nebulizer solution, Inhale 3 mL (2.5 mg total) by nebulization 4 (four) times a day as needed for wheezing., Disp: 75 mL, Rfl: 12 atorvastatin (LIPITOR) 40 mg tablet, Take 1 [...] by mouth as needed in the morning and1 tablet (1 mg total) as needed in the evening for seizures., Disp: , Rfl: cyclobenzaprine (FLEXERIL) 10 mg tablet, Take 1 tablet (10 mg total) by mouth 3 (three) times a dayas needed for muscle spasms., Disp: 30 tablet, Rfl: 0 dicyclomine (BENTYL) 20 mg tablet, Take 1 tablet (20 mg total) by mouth every 6 (six) hours., Disp:, Rfl: empagliflozin (JARDIANCE) 10 mg tablet tablet, Take 1 tablet (10 mg total) by mouth in the morning., Disp: 90 tablet, Rfl: 3 [employer] CommunicationsSTYLE CRYSTAL 14 DAY SENSOR kit, , Disp: , Rfl: furosemide (LASIX) 20 mg tablet, Take 1 tablet (20 mg total) by mouth daily., Disp: 90 tablet, Rfl:3 insulin aspart U-100 (NovoLOG) 100 unit/mL (3 mL) insulin pen, in the morning and at noon and in the evening. Take with meals., Disp: , Rfl: insulin glargine (LANTUS) 100 unit/mL injection, Inject 0.15 mL (15 Units total) under the skin in the morning., Disp: , Rfl: lamoTRIgine (LaMICtal) 200 mg tablet, Take 1 tablet (200 mg total) by mouth in the morning. Indications: bipolar depression., Disp: , Rfl: lisinopriL (PRINIVIL,ZESTRIL) 2.5 mg tablet, take 1 tablet by mouth every morning, Disp: 30 tablet,Rfl: 2 LORazepam (ATIVAN) 1 mg tablet, Take 1 tablet (1 mg total) by mouth as needed in the morning and 1 tablet (1 mg total) as needed at noon and 1 tablet (1 mg total) as needed in the evening., Disp: , Rfl: nabumetone (RELAFEN) 500 mg tablet, Take 1 tablet (500 mg total) by mouth as needed in the morning and 1 tablet (500 mg total) as needed in the evening., Disp: , Rfl: naproxen (NAPROSYN) 500 mg [...] Inhale 1 puff in the morning., Disp: 60 each, Rfl: 11 Vitals: 05/14/25 1154 BP: 107/73 Pulse: 77 SpO2: 100% Weight: 98 kg (216 lb 1.6 oz) Height: 154.9 cm (5' 1 ) ALLERGIES Reviewed with patient. Sulfamethoxazole-trimethoprim FAMILY HISTORY Family History Problem Relation Age of Onset Diabetes Mother Heart attack Mother Cancer Father Anesthesia problems Neg Hx SOCIAL HISTORY: Social History Socioeconomic History Marital status: Tobacco [...] Stress: No Stress Concern Present (12/20/2023) [employer] - Occupational Stress Questionnaire Feeling of Stress : Only a little Social Connections: Moderately Isolated (12/20/2023) Social Connection and Isolation Panel [NHANES] Frequency of Communication with Friends and Family: More than three times a week Frequency of Social Gatherings with Friends and Family: More than three times a week Attends Faith Services: Never Active Member of Clubs or Organizations: No Attends Club or Organization Meetings: Never Marital Status: Interpersonal Safety: Not At Risk (07/21/2024) Humiliation, Afraid, Rape, and Kick questionnaire Fear of Current or Ex-Partner: No Emotionally Abused: No Physically Abused: No Sexually Abused: No Housing Instability: Low Risk (07/21/2024) Housing Instability Housing Instability: No TRAVEL HISTORY: Denies recent travel. ROS: Review of Systems Constitutional: Negative for chills, fatigue and fever. Respiratory: Negative for cough, shortness of breath and wheezing. Cardiovascular: Negative for chest pain/discomfort. All other systems are reviewed and are negative except as noted. PHYSICAL EXAM Vital signs BP 107/73 Pulse 77 Ht 154.9 cm (5' 1 ) Wt 98 kg (216 lb 1.6 oz) SpO2 100% Comment: Arrived on 3Lnc of O2 BMI 40.83 kg/m Physical Exam Vitals and nursing note reviewed. Constitutional: Appearance: Normal appearance. She is obese. Cardiovascular: Heart sounds: Normal heart sounds. Pulmonary: Breath sounds: Normal breath sounds. Musculoskeletal: Cervical back: Neck supple. Skin: General: Skin is warm and dry. Neurological: Mental Status: She is alert and oriented to person, place, and time. Psychiatric: Mood and Affect: Mood normal. Behavior: Behavior normal. Assessment: Neurological alert and oriented LAB RESULTS: Lab Results Component Value Date CO2 26 10/27/2024 Lab Results Component Value Date TSH 2.45 07/21/2024 IMAGING/PFT EDUCATION: Pulmonary function test Spirometry (Flow Volume Loop) pre/post short acting bronchodilator w/ DLCO (diffusion study) Result Date: 02/13/2025 Patient gave good effort and data is [...] Please correlate with clinical and radiographic data Home O2 evaluation Pulse Oximetry Report Recording Information Site of [...] 3lpm oxygen. Respiratory Therapist: Arlene Gilman RCP Echo complete W/ contrast Result Date: 05/14/2024 [...] is 68%. No significant valvular disease noted. IMPRESSION There are no diagnoses linked to this encounter. Chronic hypoxic respiratory failure -2L with exertion [...] Obesity with BMI 43 Developmental delay PLAN Discussed diagnosis, its evaluation, treatment and usual course. All questions answered. Educational material distributed. No orders of the defined types were placed in this encounter. No orders of the defined types were placed in this encounter. We discussed Oxygen in detail currently she is to be on 2 L with exertion and 3 L with her sleep with PAP bleed. We did discuss the importance of her wearing her PAP machine on a nightly basis and continue to wear her oxygen in this manner. She reports understanding. Diet and exercise were discussed in detail. Any age appropriate or routine screening per PCP. Follow up with her previously scheduled appointment with Dr. Arrieta. If her condition should changeprior to this she is encouraged to give our office a call. CC: MD Pacheco RUTHERFORD [facility] Office: [phone] 12:12 PM on 05/14/2025 This note is dictated with the use of M*Modal.Please note that this dictation was completed with computer voice recognition software. Quite often unanticipated grammatical, syntax, homophones, and other interpretive errors are inadvertently transcribed by the computer software. Please disregard these errors. Please excuse any errors that have escaped final proofreading. DUSTIN Quarles 05/14/25 1217 documented in this encounterMercy Health [facility]09-10-2025 Instructions* Patient Instructions* DUSTIN Quarles - 05/14/2025 12:00 PM EDT If you re looking for general health and wellness resources, please visit [email or web address] documented in this encounterMercy Health [facility]09-03-2025 History of Present illness Narrative* Shania Lopez MD - 05/07/2025 4:35 PM EDT Unclear if this was completed on 3 L nasal cannula with PAP therapy but patient is supposed to be wearing her PAP therapy at night. She qualifies for 3 L supplemental oxygen with exertion. No oxygen required at rest. Should be using her 3 L oxygen with her PAP therapy at nighttime. [facility] Miscellaneous Notes* Telephone Encounter - MOIZ Andrew - 05/07/2025 4:35 PM EDT ----- Message from GEORGINA Douglas sent at 05/08/2025 10:09 AM EDT ----- Silvia - can you please complete Thanks, Ale ----- Message ----- From: Shania Lopez MD Sent: 05/07/2025 4:36 PM EDT To: Lindsay Arrieta DO; Stella Reyes RN Unclear if [...] RCP Sent: 05/07/2025 3:51 PM EDT To: Lindsay Arrieta DO * Telephone Encounter - MOIZ Andrew - 05/07/2025 4:35 PM EDT [employer] called patient and asked if patient used her PAP therapy during her Home O2 Evaluation, patient stated that she did not as she does not have a table next to her bed to set it on. * Telephone Encounter - MOIZ Andrew - 05/07/2025 4:35 PM EDT [employer] called [facility] and spoke with Autumn to confirm that the updated oxygen order needs to include the bleed-in adapter in the equipment, Autumn confirmed that the bleed-in adapter does need audrey included on the order. Autumn had asked if patient had an office visit within the last 30 days prior to her testing, insurance underwriter stated that patient had not been seen since 03/13/2025, Autumn stated thatthe testing would not be good and that patient needs to be seen prior to testing for insurance to accept. [employer] Carpenter called [facility] and spoke with Robe, per Robe, they will take the order with the updated testing as long as patient was seen within the last 12 months. Robe did state that patient has used them in the past and does owe them $399 however they can set up a payment plan with patient if she chooses to switch. [employer] Carpenter spoke with SK via phone and explained the information above to see if she could see patient on 05/14/2025 when she is back in the [place] location. Per MERLIN, she is willing to see patient to provide updated office note to support patient's recent home O2 evaluation. [employer] called dahiana (Director Learning And Development) with [facility] asking her to look into this and to confirm if patient needs an appointment or if her office notes from 03/13/2025 are sufficient, Dahiana stated that she would get back with our office as soon as possible to help resolve this issue. [employer] called patient and in formed her of all the information above, patient understands what her options are, patient stated that she is unsure if she can get a ride to the appointment on Monday but stated that she would call us back once knows, insurance underwriter verbalized understanding and held spot for patient on 05/14/2025 at noon. * Telephone Encounter - MOIZ Andrew - 05/07/2025 4:35 PM EDT Updated oxygen therapy order, home oxygen evaluation results, and office note faxed directly to [facility]'s Asian Studies Professor Valeriy and Director Learning And Development Dahiana via email. documented in this [facility]Mer[facility] Telephone encounter Note* Telephone Encounter - MOIZ Andrew - 05/07/2025 4:35 PM EDT ----- Message from GEORGINA Douglas sent at 05/08/2025 10:09 AM EDT ----- Silvia - can you please complete Thanks, Ale ----- Message ----- From: Shania Lopez MD Sent: 05/07/2025 4:36 PM EDT To: Lindsay Arrieta DO; Stella Reyes RN Unclear if [...] RCP Sent: 05/07/2025 3:51 PM EDT To: Lindsay Arrieta DO [facility]09-03-[facility] Telephone encounter Note* Telephone Encounter - MOIZ Andrew - 05/07/2025 4:35 PM EDT [employer] called patient and asked if patient used her PAP therapy during her Home O2 Evaluation, patient stated that she did not as she does not have a table next to her bed to set it on. [facility]09-03-[facility] Telephone encounter Note* Telephone Encounter - MOIZ Andrew - 05/07/2025 4:35 PM EDT [employer] Carpenter called [facility] and spoke with Autumn to confirm that the updated oxygen order needs to include the bleed-in adapter in the equipment, Autumn confirmed that the bleed-in adapter does need audrey included on the order. Autunm had asked if patient had an office visit within the last 30 days prior to her testing, insurance underwriter stated that patient had not been seen since 03/13/2025, Autumn stated thatthe testing would not be good and that patient needs to be seen prior to testing for insurance to accept. [employer] called [facility] and spoke with Robe, per Robe, they will take the order with the updated testing as long as patient was seen within the last 12 months. Robe did state that patient has used them in the past and does owe them $399 however they can set up a payment plan with patient if she chooses to switch. [employer] Carpenter spoke with SK via phone and explained the information above to see if she could see patient on 05/14/2025 when she is back in the [place] location. Per MERLIN, she is willing to see patient to provide updated office note to support patient's recent home O2 evaluation. [employer] called dahiana (Director Learning And Development) with [facility] asking her to look into this and to confirm if patient needs an appointment or if her office notes from 03/13/2025 are sufficient, Dahiana stated that she would get back with our office as soon as possible to help resolve this issue. [employer] called patient and in formed her of all the information above, patient understands what her options are, patient stated that she is unsure if she can get a ride to the appointment on Monday but stated that she would call us back once knows, insurance underwriter verbalized understanding and held spot for patient on 05/14/2025 at noon. [facility] Telephone encounter Note* Telephone Encounter - MOIZ Andrew - 05/07/2025 4:35 PM EDT Updated oxygen therapy order, home oxygen evaluation results, and office note faxed directly to [facility]'s Asian Studies Professor Valeriy and Director Learning And Development Dahiana via email. [facility]08-28-[facility] Miscellaneous Notes* Telephone Encounter - MOIZ Andrew - 05/01/2025 1:01 PM EDT [employer] called patient and informed her that per [facility], they need updated testing for patientto continue her oxygen therapy, insurance underwriter provided patient with [facility] contact information. Patient verbalized understanding. Patient had stated that at her last visit on 03/13/2025, SE had mentioned that patient should be using a nebulizer, patient reports that she does not have a nebulizer and needs an order for one alongwith the medication to be sent to [facility], insurance underwriter informed patient that SE is out of theoffice this afternoon however a message would be sent to her to review when she returns, patient verbalized understanding. * Telephone Encounter - Lindsay Arrieta DO - 05/01/2025 1:01 PM EDT Patient stated at last visit that she had a nebulizer and plenty of aerosols which was emphasized. If she does not have will need home nebulizer and solution. * Telephone Encounter - MOIZ Andrew - 05/01/2025 1:01 PM EDT Nebulizer order and supportive documentation faxed to [facility]. documented in this encounterMer[facility]08-28-2025 Telephone encounter Note* Telephone Encounter - MOIZ Andrew - 05/01/2025 1:01 PM EDT [employer] called patient and informed her that per [facility], they need updated testing for patientto continue her oxygen therapy, insurance underwriter provided patient with [facility] contact information. Patient verbalized understanding. Patient had stated that at her last visit on 03/13/2025, SE had mentioned that patient should be using a nebulizer, patient reports that she does not have a nebulizer and needs an order for one alongwith the medication to be sent to [facility], insurance underwriter informed patient that SE is out of theoffice this afternoon however a message would be sent to her to review when she returns, patient verbalized understanding. [facility]08-28-[facility] Telephone encounter Note* Telephone Encounter - Lindsay Arrieta DO - 05/01/2025 1:01 PM EDT Patient stated at last visit that she had a nebulizer and plenty of aerosols which was emphasized. If she does not have will need home nebulizer and solution. [facility]08-28-[facility] Telephone encounter Note* Telephone Encounter - MOIZ Andrew - 05/01/2025 1:01 PM EDT Nebulizer order and supportive documentation faxed to [facility]. [facility]08-20-[facility] Telephone encounter Note* Telephone Encounter - Tracy Olivera - 04/23/2025 [...] asking what we recommend now. Please advise [facility] [id number] Miscellaneous Notes* Telephone Encounter - Tracy Olivera - 04/23/2025 [...] recommend now. Please advise documented in this encounterSaint Francis Hospital & Health [id number] History of Present illness Narrative* Jr. Harinder Lynn Manuel, DO - 04/22/2025 10:00 AM EDT Images from the original note were not included. HISTORY OF PRESENT ILLNESS: EST PT Carissa Santos is an 44 y.o. @ female. (EST PT) - RECHECK LT KNEE PAIN - S/P PT [facility] ZHEN; DENIES RELIEF XRAY LT KNEE EPIC 02/25/25 MRI LT KNEE 03/04/25 [facility] (PUSHED TO PACS) NO CORTISONE INJ NO MDP/PREDNISONE PT [facility] ZHEN PAIN GLOBAL- +WAKES HS- PAIN IS CONSTANT- INTERMITTENT POPPING- +INSTABILITY- MINIMAL SWELLING- PT ICES/ELEVATES- +STIFFNESS WITH PROLONG SITTING- DIFFICULTY WITH STAIRS- INCREASE PAIN WITH ACTIVITY/AMBULATING- +MOTRIN; DENIES RELIEF - [place]: PT FELL AND LANDED ON KNEE- DR DALTON [place]; MILDRED ALLERGIES: Allergies Allergen Reactions Sulfamethoxazole-Trimethoprim Hives and [...] (CELEXA) 40 mg, Oral, Daily Continuous Glucose Cigar Packer And Grader (FreeStyle Crystal 3 Wyano) device 1 Application, Does not apply, Continuous Continuous Glucose Sensor (FreeStyle Crystal 3 Sensor[place] [facility] [place] MONITOR BLOOD SUGAR DIRECTED. CHANGE SENSOR EVERY 14 DAYS. Continuous Glucose Sensor (FreeStyle Crystal 3 Sensor) misc 1 Units, Does not apply, Weekly cyclobenzaprine (FLEXERIL) 10 mg, Oral, 3 times daily PRN dicyclomine (BENTYL) 20 mg, Oral, 4 times daily PRN empagliflozin (JARDIANCE) 25 mg, Oral, Daily fluconazole (DIFLUCAN) 150 mg, Once furosemide (LASIX) 40 mg, Oral, Daily ibuprofen 800 mg, Oral, Every 6 hours PRN insulin aspart FlexPen (NovoLOG) 100 UNIT/ML pen INJECT SUBCUTANEOUSLY THREE TIMES A DAY PER SLIDING SCALE; *30 TO 40 UNITS DAILY* insulin pen needle (Droplet Pen [place]) 32G x 4 mm [facility] Use as instructed lamoTRIgine (LAMICTAL) [...] (ZOFRAN) 4 mg, Oral, Every 6 hours PRN, Take 1 tablet by mouth every 6 hours as needed for nausea. ondansetron ODT (Zofran-ODT) 4 MG disintegrating tablet [...] Daily RT Trulicity 1.5 mg, Subcutaneous, Weekly PHYSICAL EXAM: Knee Musculoskeletal Exam Gait Gait is normal. Limp: left Inspection Leg length disparity: no discrepancy Left Erythema: none Effusion: moderate Edema: none Ecchymosis: none Deformity: none Alignment: normal Palpation Left Increased warmth: none Masses: none Tenderness: present Medial joint line: moderate Medial retinaculum: moderate Range of Motion Left Left knee range of motion is normal and full. Active extension: 0 Passive extension: 0 Active flexion: 125 Passive flexion: 125 Range of motion additional comments: + PAIN ON TERMINAL FLEXION AND EXTENSION Strength Left Extension: 5/5. Extension is affected by pain. Flexion: 5/5. Flexion is affected by pain. Instability Left Instability signs: none - stable Varus stress grade: normal Valgus stress grade: normal Anterior drawer: normal Medial Marianne test: positive Lateral Marianne test: negative Neurovascular Left Left knee neurovascular exam is [...] to calculate BMI. Tobacco Use: Low Risk (04/22/2025) Patient History Smoking Tobacco Use: Never Smokeless Tobacco Use: Never Passive Exposure: Not on file Alcohol Use: Not At Risk (12/20/2023) Received from [facility] Frequency of Alcohol Consumption: Never Average Number of Drinks: Patient does not drink Frequency of Binge Drinking: Never IMAGING: Procedures No orders of the defined types were placed in this encounter. ASSESSMENT: ICD-10-CM 1. Acute pain of left knee M25.562 2. Acute medial meniscus tear of left knee, initial encounter S83.242A PLAN: We discussed her symptoms and physical exam. We recommended a diagnostic and operative arthroscopy of her left knee for medial and lateral meniscus tears. We also recommended that she follow-up with a specialist that Dr. Dalton recommended for the cyst and then medial aspect of her left eye and nose. We'll see her back on the day of surgery for an arthroscopy of mamta left knee. We have talked her logistics research engineer to ensure that she signs her own consents and does not need to have a power of attorneyor caregiver sign for her. Questions answered in laymen terms at the bedside. The diagnosis, home exercise plan and any ongoing restrictions/ recommendations reviewed. If unable to be reached in office, I recommend evaluation at nearest Emergency Room if any symptoms worsened or new symptoms develop for requiring urgent evaluation. documented in this encounterSaint Francis Hospital & Health [id number] History of Present illness Narrative* Romana Whitmore NP - 04/14/2025 1:40 PM EDT Reason for Appointment: Patient ID: Carissa Santos [...] (CELEXA) 40 mg, Oral, Daily Continuous Glucose Cigar Packer And Grader (FreeStyle Crystal 3 Wyano) device 1 Application, Does not apply, Continuous Continuous Glucose Sensor (FreeStyle Crystal 3 Sensor[place] [facility] [place] TO MONITOR BLOOD SUGAR DIRECTED. CHANGE SENSOR EVERY 14 DAYS. Continuous Glucose Sensor (FreeStyle Crystal 3 Sensor) [facility] [place] 1 Units, Does not apply, Weekly cyclobenzaprine [...] UNITS DAILY* insulin pen needle (Droplet Pen [place]) 32G x 4 mm [facility] Use as instructed lamoTRIgine (LAMICTAL) [...] heart failure with preserved ejection fraction (HFpEF) ([facility]) 04/06/2023 Equinus deformity of left foot 04/06/2023 Gastroesophageal reflux disease 04/06/2023 Genital warts 04/06/2023 Hot flashes due to menopause 04/06/2023 Type 2 diabetes mellitus with microalbuminuria, with long-term current use of insulin ([facility]) 04/06/2023 Internal derangement of left shoulder 04/06/2023 Irritable bowel syndrome with diarrhea 04/06/2023 Mild developmental delay 09/29/2021 Migraine without aura and without status migrainosus, not intractable 04/06/2023 Mild episode of recurrent major depressive disorder 04/06/2023 Class 3 severe obesity due to excess calories with serious comorbidity and body mass index (BMI) of40.0 to 44.9 in adult ([facility]) 11/21/2022 Type 2 diabetes mellitus with polyneuropathy ([facility]) 06/10/2021 Obstructive sleep apnea syndrome 09/30/2009 Osteoarthritis of knee 04/06/2023 Overactive bladder 04/06/2023 Panic disorder without agoraphobia 11/12/2009 Dyslipidemia 04/22/2010 Spondylosis without myelopathy 08/10/2010 Obesity hypoventilation syndrome ([facility]) 01/04/2024 Benign essential hypertension 01/04/2024 Right carpal tunnel syndrome 01/04/2024 Type 2 diabetes mellitus with hyperglycemia, with long-term current use of insulin ([facility]) 02/12/2024 Moderate persistent asthma without complication ([facility]) 02/19/2024 Pulmonary hypertension ([facility]) 08/06/2024 Dehydration 10/28/2024 Nausea & vomiting 10/28/2024 Encounter for long-term (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 medications 02/10/2025 Resolved Ambulatory Problems Diagnosis Date Noted Acute kidney injury (DREW) with acute tubular necrosis (ATN) 09/30/2021 Acute pain of left shoulder 04/06/2023 Shoulder joint pain 04/06/2021 Carpal tunnel syndrome of left wrist 04/06/2023 Convulsions in the ([facility]) 09/30/2009 Cubital tunnel syndrome on left 11/04/2022 Fecal incontinence 06/22/2016 High anion gap metabolic acidosis 09/30/2021 Hyperglycemia 03/01/2019 Mild intellectual disability 09/30/2009 Other chronic pain 04/06/2023 Pneumonia due to infectious organism 09/29/2021 Poorly controlled diabetes mellitus ([facility]) 08/10/2015 Normal gynecologic examination 06/09/2015 Missed period 04/06/2023 DKA, type 1, not at goal ([facility]) 09/27/2021 Type 2 diabetes mellitus ([facility]) 09/30/2009 Cavitary lesion of lung 08/10/2023 Other chest pain 08/10/2023 Hypoxia 01/04/2024 Chronic hypoxic respiratory failure ([facility]) 02/19/2024 Acute pain of right knee 05/29/2024 Past Medical History: Diagnosis Date Ankle fracture Anxiety and depression At low risk for fall Bilateral leg edema Chest pain, central Chronic left shoulder pain Chronic pain Chronic respiratory failure ([facility]) Epilepsy ([facility]) GERD (gastroesophageal reflux disease) History of being hospitalized History of medical problems Hyperlipidemia Insomnia, persistent MDD (major depressive disorder), recurrent episode, mild Morbid obesity with BMI of 40.0-44.9, adult ([facility]) Nocturnal hypoxemia Nonsmoker OAB (overactive bladder) Obesity JOSE M (obstructive sleep apnea) Postoperative urinary retention Primary osteoarthritis of left knee Seasonal allergies Type 2 diabetes mellitus with diabetic polyneuropathy, with long-term current use of insulin ([facility]) Type 2 diabetes mellitus without complication ([facility]) Vitamin D deficiency HISTORY PAST MEDICAL HISTORY SOCIAL HISTORY Past Medical History: Diagnosis Date Ankle fracture Anxiety and depression At low risk for fall Bilateral leg edema Chest pain, central Chronic left shoulder pain Chronic pain Chronic respiratory failure ([facility]) Dyslipidemia Epilepsy ([facility]) Childhood epilepsy JOHN (generalized anxiety disorder) Genital warts GERD (gastroesophageal reflux disease) History of being hospitalized pneumonia, diabetes, infection [10/29/21-11/05/21] History of medical problems mild mental retardation Hyperlipidemia Insomnia, persistent Irritable bowel syndrome with diarrhea MDD (major depressive disorder), recurrent episode, mild Migraine without aura and without status migrainosus, not intractable Morbid obesity with BMI of 40.0-44.9, adult ([facility]) Nocturnal hypoxemia Nonsmoker OAB (overactive bladder) Obesity JOSE M (obstructive sleep apnea) Postoperative urinary retention Primary osteoarthritis of left knee Seasonal allergies Type 2 diabetes mellitus with diabetic polyneuropathy, with long-term current use of insulin ([facility]) Type 2 diabetes mellitus with hyperglycemia, with long-term current use of insulin ([facility]) Type 2 diabetes mellitus without complication ([facility]) Vitamin D deficiency Social History Tobacco Use [...] nursing note reviewed. Exam conducted with a microcomputer support specialist present. Vitals: Estimated body mass index is [...] genital warts. Patient to setup date with Felt Cementer prior to leaving office today. Documented by Romana Whitmore NP on behalf of: Feliz Benz DO documented in this [facility]08-04-2025 Telephone encounter Note* Telephone Encounter - Mila Cavanaugh - 04/07/2025 8:02 AM EDT She called and lm noting not feeling well this morning; she cx her PT for today. [facility] [id number] Miscellaneous Notes* Telephone Encounter - Mila Cavanaugh - 04/07/2025 8:02 AM EDT She called and lm noting not feeling well this morning; she cx her PT for today. documented in this [facility]07-25-2025 Telephone encounter Note* Telephone Encounter - UYEN Glover - 03/28/2025 1:00 PM EDT Called and spoke to Carissa let her know Dr Jackson's recommendation. She will continue physical therapy. She will let the therapist know she has been having a lot of pain and see if there is anything different they can try. Recommended taking TYL/IBU before therapy and to continue icing/elevating. Will call back with any more issues. [facility] [id number] Miscellaneous Notes* Telephone Encounter - UYEN Glover - 03/28/2025 1:00 PM EDT Called and spoke to Carissa, let her know Dr Jackson's recommendation. She will continue physical therapy. She will let the therapist know she has been having a lot of pain and see if there is anything different they can try. Recommended taking TYL/IBU before therapy and to continue icing/elevating. Will call back with any more issues. * Telephone Encounter - Renetta Ferris MA - 03/28/2025 12:[address] Jackson said that if that knee does need surgery, he is unable to do surgery until that knee is moving. He strongly advises that she goes to physical therapy. * Telephone Encounter - Jessenia Donnelly - 03/28/2025 9:31 AM EDT Patient called stating [place] This would be the third session. She fels she cannot do it. She is in a lot of pain after. [phone] * Telephone Encounter - ROSAURA Rosado - 03/27/2025 6:35 PM EDT Renetta & Dr. Jackson, It sounds like this pt is not tolerating recommend therapy for her knee,Possible scope? Any recommendations.? * Telephone Encounter - Tracy Olivera - 03/27/2025 8:26 AM EDT Carissa called and said that she went to therapy twice and said that the pain is so bad afterwards she can't stand it, she is scheduled for tomorrow doesn't want to go because of the pain. She said that its still popping please advise She is scheduled with Dr. Jackson April 22, 2025. documented in this encounterSaint [facility] & Health [id number] Telephone encounter Note* Telephone Encounter - Renetta Ferris MA - 03/28/2025 12:[address] Jackson said that if that knee does need surgery, he is unable to do surgery until that knee is moving. He strongly advises that she goes to physical therapy. [facility] [id number] Telephone encounter Note* Telephone Encounter - Mila Cavanaugh - 03/28/2025 9:36 AM EDT She called noting she has a call into Dr. Jackson, due to when she has completed PT so far, she feels 2x's worse than when she started. Pending call back, she said she'll keep her next PT scheduled 04/02; will contact if cx is needed. [facility] [id number] Miscellaneous Notes* Telephone Encounter - Mila Cavanaugh - 03/28/2025 9:36 AM EDT She called noting she has a call into Dr. Jackson, due to when she has completed PT so far, she feels 2x's worse than when she started. Pending call back, she said she'll keep her next PT scheduled 04/02; will contact if cx is needed. documented in this encounterSaint Francis Hospital & Health [id number] Telephone encounter Note* Telephone Encounter - Jessenia Donnelly - 03/28/2025 9:31 AM EDT Patient [place] This would be the third session. She fels she cannot do it. She is in a lot of pain after. [phone] [facility] [id number] Telephone encounter Note* Telephone Encounter - ROSAURA Rosado - 03/27/2025 6:35 PM EDT Renetta & Dr. Jackson, It sounds like this pt is not tolerating recommend therapy for her knee,Possible scope? Any recommendations.? [facility] Work Phone: [phone] Telephone encounter Note* Telephone Encounter - Tracy Olivera - 03/27/2025 8:26 AM EDT Carissa called and said that she went to therapy twice and said that the pain is so bad afterwards she can't stand it, she is scheduled for tomorrow doesn't want to go because of the pain. She said that its still popping please advise She is scheduled with Dr. Jackson April 22, 2025. [facility] [id number] Miscellaneous Notes* Telephone Encounter - MOIZ Andrew - 03/24/2025 9:26 AM EDT Patient called office requesting a refill of her Trelegy 200 to be sent to [facility], insurance underwriter asked patient to confirm the phone number for [facility] as two [facility] are listed inher chart patient confirmed phone number for the pharmacy located in [place]. documented in this encounterMer[facility]07-[facility] Telephone encounter Note* Telephone Encounter - MOIZ Andrew - 03/24/2025 9:26 AM EDT Patient called office requesting a refill of her Trelegy 200 to be sent to [facility], insurance underwriter asked patient to confirm the phone number for [facility] as two [facility] are listed inher chart patient confirmed phone number for the pharmacy located in [place]. [facility]07-14-[facility]25 History of Present illness Narrative* Arlene Mullen, ESTEBAN - 03/17/2025 2:30 PM EDT Reason for Appointment: Patient ID: Carissa Santos [...] (CELEXA) 40 mg, Oral, Daily Continuous Glucose Cigar Packer And Grader (FreeStyle Crystal 3 Wyano) device 1 Application, Does not apply, Continuous Continuous Glucose Sensor (FreeStyle Crystal 3 Sensor) mis USE TO MONITOR BLOOD SUGAR DIRECTED. CHANGE [...] UNITS DAILY* insulin pen needle (Droplet Pen [place]) 32G x 4 mm misc Use as [...] heart failure with preserved ejection fraction (HFpEF) ([facility]) 04/06/2023 Equinus deformity of left foot 04/06/2023 Gastroesophageal reflux disease 04/06/2023 Genital warts 04/06/2023 Hot flashes due to menopause 04/06/2023 Type 2 diabetes mellitus with microalbuminuria, with long-term current use of insulin ([facility]) 04/06/2023 Internal derangement of left shoulder 04/06/2023 Irritable bowel syndrome with diarrhea 04/06/2023 Mild developmental delay 09/29/2021 Migraine without aura and without status migrainosus, not intractable 04/06/2023 Mild episode of recurrent major depressive disorder 04/06/2023 Class 3 severe obesity due to excess calories with serious comorbidity and body mass index (BMI) of40.0 to 44.9 in adult ([facility]) 11/21/2022 Type 2 diabetes mellitus with polyneuropathy ([facility]) 06/10/2021 Obstructive sleep apnea syndrome 09/30/2009 Osteoarthritis of knee 04/06/2023 Overactive bladder 04/06/2023 Panic disorder without agoraphobia 11/12/2009 Dyslipidemia 04/22/2010 Spondylosis without myelopathy 08/10/2010 Obesity hypoventilation syndrome ([facility]) 01/04/2024 Benign essential hypertension 01/04/2024 Right carpal tunnel syndrome 01/04/2024 Type 2 diabetes mellitus with hyperglycemia, with long-term current use of insulin ([facility]) 02/12/2024 Moderate persistent asthma without complication ([facility]) 02/19/2024 Pulmonary hypertension ([facility]) 08/06/2024 Dehydration 10/28/2024 Nausea & vomiting 10/28/2024 Encounter for long-term (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 medications 02/10/2025 Resolved Ambulatory Problems Diagnosis Date Noted Acute kidney injury (DREW) with acute tubular necrosis (ATN) 09/30/2021 Acute pain of left shoulder 04/06/2023 Shoulder joint pain 04/06/2021 Carpal tunnel syndrome of left wrist 04/06/2023 Convulsions in the ([facility]) 09/30/2009 Cubital tunnel syndrome on left 11/04/2022 Fecal incontinence 06/22/2016 High anion gap metabolic acidosis 09/30/2021 Hyperglycemia 03/01/2019 Mild intellectual disability 09/30/2009 Other chronic pain 04/06/2023 Pneumonia due to infectious organism 09/29/2021 Poorly controlled diabetes mellitus ([facility]) 08/10/2015 Normal gynecologic examination 06/09/2015 Missed period 04/06/2023 DKA, type 1, not at goal ([facility]) 09/27/2021 Type 2 diabetes mellitus ([facility]) 09/30/2009 Cavitary lesion of lung 08/10/2023 Other chest pain 08/10/2023 Hypoxia 01/04/2024 Chronic hypoxic respiratory failure ([facility]) 02/19/2024 Acute pain of right knee 05/29/2024 [...] Morbid obesity with BMI of 40.0-44.9, adult ([facility]) Nocturnal hypoxemia Nonsmoker OAB (overactive bladder) Obesity JOSE M (obstructive sleep apnea) Postoperative urinary retention Primary osteoarthritis of left knee Seasonal allergies Type 2 diabetes mellitus with diabetic polyneuropathy, with long-term current use of insulin ([facility]) Type 2 diabetes mellitus without complication ([facility]) Vitamin D deficiency HISTORY PAST MEDICAL HISTORY SOCIAL HISTORY Past Medical History: Diagnosis Date Ankle fracture Anxiety and depression At low risk for fall Bilateral leg edema Chest pain, central Chronic left shoulder pain Chronic pain Chronic respiratory failure (HCC) Dyslipidemia Epilepsy ([facility]) Childhood epilepsy JOHN (generalized anxiety disorder) Genital warts GERD (gastroesophageal reflux disease) History of being hospitalized pneumonia, diabetes, infection [10/29/21-11/05/21] History of medical problems mild mental retardation Hyperlipidemia Insomnia, persistent Irritable bowel syndrome with diarrhea MDD (major depressive disorder), recurrent episode, mild Migraine without aura and without status migrainosus, not intractable Morbid obesity with BMI of 40.0-44.9, adult ([facility]) Nocturnal hypoxemia Nonsmoker OAB (overactive bladder) Obesity JOSE M (obstructive sleep apnea) Postoperative urinary retention Primary osteoarthritis of left knee Seasonal allergies Type 2 diabetes mellitus with diabetic polyneuropathy, with long-term current use of insulin ([facility]) Type 2 diabetes mellitus with hyperglycemia, with long-term current use of insulin ([facility]) Type 2 diabetes mellitus without complication ([facility]) Vitamin D deficiency Social History Tobacco Use [...] nursing note reviewed. Exam conducted with a microcomputer support specialist present. Vitals: Estimated body mass index is 40.25 kg/m as calculated from the following: Height as of 25: 5' 1 . Weight as of this encounter: 213 lb. BP: 120/70 No LMP recorded. Patient is premenopausal. ASSESSMENT & PLAN ICD-10-CM 1. Genital warts A63.0 Patient presents today to have TCA treatment on genital warts. Patient tolerated procedure well andwill present to office if areas return. Patient to ensure that she is scheduled for her annual appointment. Documented by Arlene Mullen LPN on behalf of: Feliz Benz DO documented in this encounterSaint Francis [facility] & Health [id number] History of Present illness Narrative* Jr. Harinder Jackson DO - 03/14/2025 11:30 AM EDT Images from the original note were not included. HISTORY OF PRESENT ILLNESS: EST PT Carissa Santos is an 44 y.o. @ female. (EST PT) - RECHECK LT KNEE PAIN - S/P MRI DONE AT THE [facility] ON 03/04/25 XRAY LT KNEE EPIC 02/25/25 [...] (CELEXA) 40 mg, Oral, Daily Continuous Glucose Cigar Packer And Grader (FreeStyle Crystal 3 Wyano) device 1 Application, Does not apply, Continuous Continuous Glucose Sensor (FreeStyle Crystal 3 Sensor) [facility] USE TO MONITOR BLOOD SUGAR DIRECTED. CHANGE [...] UNITS DAILY* insulin pen needle (Droplet Pen [place]) 32G x 4 mm [facility] Use as instructed lamoTRIgine (LAMICTAL) 200 mg, [...] Use: Not At Risk (12/20/2023) Received from [facility] Frequency of Alcohol Consumption: Never Average [...] for requiring urgent evaluation. documented in this encounterSaint Francis Hospital & Health [id number] Miscellaneous Notes* Telephone Encounter - MOIZ Andrew - 03/13/2025 10:02 AM EDT [employer] called [facility] and spoke with Autumn, insurance underwriter asked Autumn to verify if patient qualified for POC, per Autumn, Medicaid does not cover POCs. [employer] verbalized understanding. documented in this encounterMer[facility]07-10-2025 Telephone encounter Note* Telephone Encounter - MOIZ Andrew - 03/13/2025 10:02 AM EDT [employer] called [facility] and spoke with Autumn, insurance underwriter asked Autumn to verify if patient qualified for POC, per Autumn, Medicaid does not cover POCs. [employer] verbalized understanding. [facility]07-10-2025 History of Present illness Narrative* MOIZ Andrew - 03/13/2025 9:30 AM EDT Images from the original note were not included. * Lindsay Arrieta DO - 03/13/2025 9:30 AM EDT Images from the original note were not included. [facility] Pul[facility] And Sleep Progress Note Patient - [...] poor compliance. This would be highly advised giventhe setting of mild pulmonary hypertension. This was [...] exercise program advised Will reach out to [facility] and inquire regarding POC and if issue with her not being able to obtain She expresses plan to pursue disability Return to clinic in 6 months or earlier if needed SUBJECTIVE Carissa presents for follow-up of her shortness of breath with exertion, chronic hypoxic respiratoryfailure, asthma, severely impaired DLCO on PFT data. There has been no evidence interstitial lung disease on CT scan of the chest. Echocardiogram was obtained in May and cardiac catheterizationwas done in June. Right heart catheterization pressure [...] has not found a table to set nearher bedside for her CPAP machine so has [...] this today. No new cough, wheeze, congestion. Shehas not had any respiratory infections since last [...] PFT Results Radiology Dr. Lindsay Arrieta DO. [facility] Critical Care Office: [phone] documented in this encounterMercy Health [facility]07-08-2025 Miscellaneous Notes* Telephone Encounter - Chinyere Fisher - 03/11/2025 2:33 PM EDT Patient LVM w/no information. [employer] LVM for patient to call back. documented in this encounterMercy Health [facility]07-08-2025 Telephone encounter Note* Telephone Encounter - Chinyere Fisher - 03/11/2025 2:33 PM EDT Patient LVM w/no information. [employer] LVM for patient to call back. [facility]07-02-2025 Miscellaneous Notes* Telephone Encounter - Chinyere Fisher - 03/05/2025 9:23 AM EDT [facility] [address] [facility] [phone] New referral received by [facility] for diabetes. Patient was contacted to schedule appointment at [facility] [place] ([facility]). This was my first attempt to reach the patient and was able to schedule the patient on 03/20 at 1:30 . Patient willbe asked to bring PPMM Additional Info: Medication List, Blood Glucose Meter, and Blood Sugar Log. Referral added to spreadsheet. Referring provider: Katelyn Recio MD * Telephone Encounter - Chinyere Fisher - 03/05/2025 9:23 AM EDT Patient's spring encaser, Gosia, called to ask if patient's PCP can be kept in the loop on patient's appts since the referral came from cardiology. [employer] confirmed that PCP is Diaz Dalton and advised that PPMM will keep him in the loop. Per conversation with [facility] Ly, DM referral should come from PCP anyway. [employer] sent referral and renewal CA to PCP. documented in this encounterMercy Health [facility]07-02-2025 Telephone encounter Note* Telephone Encounter - Chinyere Fisher - 03/05/2025 9:23 AM EDT [facility] [address] [place] [facility] [phone] New referral received by [facility] Medication Management for diabetes. Patient was contacted to schedule appointment at [facility] [place] ([facility]). This was my first attempt to reach the patient and was able to schedule the patient on 03/20 at 1:30 . Patient willbe asked to bring PPMM Additional Info: Medication List, Blood Glucose Meter, and Blood Sugar Log. Referral added to spreadsheet. Referring provider: Katelyn Recio MD [facility]07-02-2025 Telephone encounter Note* Telephone Encounter - Chinyere Fisher - 03/05/2025 9:23 AM EDT Patient's spring encaser, Gosia, called to ask if patient's PCP can be kept in the loop on patient's appts since the referral came from cardiology. [employer] confirmed that PCP is Diaz Dalton and advised that PPMM will keep him in the loop. Per conversation with Ari Modi DM referral should come from PCP anyway. [employer] sent referral and renewal CA to PCP. [facility]07-02-2025 Telephone encounter Note* Telephone Encounter - ROSAURA Rosado - 03/05/2025 7:59 AM EDT Reviewed MRI, Possible Meniscus tear. No fracture... I want her to see Dr. Jackson for keira nunes pain and symptoms... please cancel appt with me and schedule with Dr. Jackson within the next week or 2 [facility] [id number] Miscellaneous Notes* Telephone Encounter - ROSAURA Rosado - 03/05/2025 7:59 AM EDT Reviewed MRI, Possible Meniscus tear. No fracture... I want her to see Dr. Jackson for keira nunes pain and symptoms... please cancel appt with me and schedule with Dr. Jackson within the next week or 2 * Telephone Encounter - Tracy Olivera - 02/28/2025 10:35 AM EDT I called Carissa and explained to her that we didn't want to use narcotics at this time, but she cantake 600 mg Mortrin 3x a day and supp with Tylenol between. Advise Non weight bearing on that leg until we got the MRI, she said that she hasn't heard from [facility] for the MRI yet, I told her to give them a call and see if she can get that started. She said she will call them, told if she had any other questions or needed anything that we were here until 3:00pm today * Telephone Encounter - ROSAURA Rosado - 02/27/2025 5:26 PM EDT I do not recommend anything narcotic at this time.. she can take motrin 600mg 3 times a day and Tylenol as directed... she is to be using a walker with no weight bearing if painful pending MRI. ( Knee pain present for 1 month with a fall) if fever develops or symptoms worsen recommend ER. * Telephone Encounter - Tracy Olivera - 02/27/2025 8:32 AM EDT Carissa was here 02/25/25 seen Cullen, she called this morning wanting to know if we could call her insomething for pain, she said that she can't sleep her pain is so bad. Please advise she uses [facility] documented in this encounterSaint Francis Hospital & Health [id number] Miscellaneous Notes* Telephone Encounter - Jorge L Givens RN - 03/05/2025 7:11 AM EDT Images from the original note were not included. * Telephone Encounter - Jorge L Givens RN - 03/05/2025 7:11 AM EDT LMOM for pts spring encaser Gosia (ok-hipaa) to update on LLDs PPMM recommendation. [employer] asked for r/c to office for any further questions. documented in this encounterMercy Health [facility]07-02-2025 Telephone encounter Note* Telephone Encounter - Jorge L Givens RN - 03/05/2025 7:11 AM EDT Images from the original note were not included. [facility]07-02-20[facility] Telephone encounter Note* Telephone Encounter - Jorge L Givens RN - 03/05/2025 7:11 AM EDT LMOM for pts spring encaser Gosia (ok-hipaa) to update on LLDs PPMM recommendation. [employer] asked for r/c to office for any further questions. [facility]06-27-2025 Telephone encounter Note* Telephone Encounter - Tracy Olivera - 02/28/2025 10:35 AM EDT I called Carissa and explained to her that we didn't want to use narcotics at this time, but she cantake 600 mg Mortrin 3x a day and supp with Tylenol between. Advise Non weight bearing on that leg until we got the MRI, she said that she hasn't heard from [facility] for the MRI yet, I told her to give them a call and see if she can get that started. She said she will call them, told if she had any other questions or needed anything that we were here until 3:00pm today [facility] [id number] Telephone encounter Note* Telephone Encounter - ROSAURA Rosado - 02/27/2025 5:26 PM EDT I do not recommend anything narcotic at this time.. she can take motrin 600mg 3 times a day and Tylenol as directed... she is to be using a walker with no weight bearing if painful pending MRI. ( Knee pain present for 1 month with a fall) if fever develops or symptoms worsen recommend ER. [facility] [id number] Telephone encounter Note* Telephone Encounter - Tracy Lynnes - 02/27/2025 8:32 AM EDT Carissa was here 02/25/25 seen Cullen, she called this morning wanting to know if we could call her insomething for pain, she said that she can't sleep her pain is so bad. Please advise she uses [facility] [id number] History of Present illness Narrative* ROSAURA Rosado - 02/25/2025 2:30 PM EDT Images from the original [...] IV contrast MRI LT knee w/o at [facility]. Orbits if needed. please push images to [facility] pacs Standing Status: Future Expected Date: [...] present for 1 month after a fall. Shenotes sharp, stabbing pain catching, locking at times. Exam concerning for possible medial meniscustear versus chondral contusion as she does have [...] requiring urgent evaluation. Visit was preformed using [employer]-pilot fuel engineer speech recognition. documented in this encounterSaint Francis Hospital & Health [id number] Miscellaneous Notes* Telephone Encounter - MOIZ Andrew - 02/25/2025 11:07 AM EDT Images from the original note were not included. Patient called and stated that she needed a PA for her Trelegy, insurance underwriter initiated PA through covermymeds. PA came back denied for Trelegy 200. * Telephone Encounter - MOIZ Andrew - 02/25/2025 11:07 AM EDT Images from the original note were not included. Reinitiated PA through Epic, PA for Trelegy 200 approved. * Telephone Encounter - Lindsay Arrieta DO - 02/25/2025 11:07 AM EDT Great thanks documented in this encounterMercy Health [facility]06-24-2025 Telephone encounter Note* Telephone Encounter - MOIZ Andrew - 02/25/2025 11:07 AM EDT Images from the original note were not included. Patient called and stated that she needed a PA for her Trelegy, insurance underwriter initiated PA through covermymeds. PA came back denied for Trelegy 200. [facility]06-24-2025 Telephone encounter Note* Telephone Encounter - MOIZ Andrew - 02/25/2025 11:07 AM EDT Images from the original note were not included. Reinitiated PA through Epic, PA for Trelegy 200 approved. [facility]06-24-2025 Telephone encounter Note* Telephone Encounter - Lindsay Arrieta DO - 02/25/2025 11:07 AM EDT Great thanks [facility]06-16-2025 Miscellaneous Notes* Telephone Encounter - MOIZ Andrew - 02/17/2025 10:36 AM EDT Patient called office and stated that she only has 2 weeks left on her Trelegy 200, patient is requesting a refill as she does not see SE until 03/13/2025. [facility] [place] Please review and advise. * Telephone Encounter - Lindsay Arrieta DO - 02/17/2025 10:36 AM EDT Okay to send refills * Telephone Encounter - Stella Reyes RN - 02/17/2025 10:36 AM EDT Script sent to get patient to office appt on 03-13-25. At office appt, will need to discuss additional refills with physicianBrian Vega - please call patient and notify. * Telephone Encounter - MOIZ Andrew - 02/17/2025 10:36 AM EDT [employer] called patient and informed her that Rx was sent to pharmacy and that she would have enough to get her through until her appointment, patient verbalized understanding. documented in this encounterMercy Health [facility] Hospital06-16-2025 Telephone encounter Note* Telephone Encounter - MOIZ Andrew - 02/17/2025 10:36 AM EDT Patient called office and stated that she only has 2 weeks left on her Trelegy 200, patient is requesting a refill as she does not see SE until 03/13/2025. Patient is requesting that the Rx be sent to [facility] [place]. Please review and advise. [facility]06-16-2025 Telephone encounter Note* Telephone Encounter - Lindsay Arrieta DO - 02/17/2025 10:36 AM EDT Okay to send refills [facility]06-16-2025 Telephone encounter Note* Telephone Encounter - Stella Reyes RN - 02/17/2025 10:36 AM EDT Script sent to get patient to office appt on 03-13-25. At office appt, will need to discuss additional refills with physician. Silvia - please call patient and notify. [facility]06-16-2025 Telephone encounter Note* Telephone Encounter - MOIZ Andrew - 02/17/2025 10:36 AM EDT [employer] called patient and informed her that Rx was sent to pharmacy and that she would have enough to get her through until her appointment, patient verbalized understanding. [facility]06-09-2025 History of Present illness Narrative* Diaz Dalton MD - 02/10/2025 2:01 PM EDTAssociated Problem(s): Type 2 diabetes mellitus with hyperglycemia, with long-term current use of insulin ([facility]) BS elevated and increase semglee to 20 units BID. Resume moujaro. * Diaz Dalton MD - 02/10/2025 2:00 PM EDTAssociated Problem(s): Osteoarthritis of knee Unsteady when moving and script for rolling walker to patient. * Diaz Dalton MD - 02/10/2025 2:00 PM EDTAssociated Problem(s): Mild episode of recurrent major depressive disorder (HCC) (CMS/HCC) Symptoms worse and increase celexa. Warned will take 2-3 weeks to notice improvement in mood. * Diaz Dalton MD - 02/10/2025 2:00 PM EDTAssociated Problem(s): JOHN (generalized anxiety disorder) (CMS/HCC) Symptoms worse and increase celexa. Warned will take 2-3 weeks to notice improvement in mood. Use ativan PRN. * Diaz Dalton MD - 02/10/2025 1:59 PM EDTAssociated Problem(s): Class 3 severe obesity due to excess calories with serious comorbidity and body mass index (BMI) of 40.0 to 44.9 in adult Weight loss indicated. * Diaz Dalton MD - 02/10/2025 1:59 PM EDTAssociated Problem(s): Chronic heart failure with preserved ejection fraction (HFpEF) (CMS/HCC) Edema stable and continue lasix. * Diaz Dalton MD - 02/10/2025 1:59 PM EDTAssociated Problem(s): Benign essential hypertension (CMS/HCC) BP controlled and monitor PRN. * Diaz Dalton MD - 02/10/2025 1:00 PM EDT Images from the original note [...] Depression recently worse. Moved and found out [id number] . Down, sad, and crying. Not want [...] Addressed This Visit JOHN (generalized anxiety disorder) ([facility]/HCC) Symptoms worse and increase celexa. Warned will [...] index (BMI) of40.0 to 44.9 in adult Weight loss indicated. [...] differential Hepatic function panel documented in this encounterSaint Francis Hospital & Health [id number] History of Present illness Narrative* Katelyn Recio MD - 01/03/2025 9:15 AM EDT Carissa Santos Date of visit: 01/03/2025 Date of : 1980 Age: 44 y.o. Patient Active Problem List Diagnosis Hyperglycemia Chest wall pain Type 2 diabetes mellitus with hyperglycemia, with long-term current use of insulin ([facility]) Mild developmental delay Obstructive sleep apnea syndrome Hyperlipidemia associated with type 2 diabetes mellitus ([facility]) Abnormal ECG during exercise stress test Mediastinal lymphadenopathy Acute cystitis without hematuria Pulmonary nodule Dyspnea on exertion Moderate persistent asthma without complication Chronic hypoxic respiratory failure ([facility]) BMI 40.0-44.9, adult ([facility]) Pulmonary hypertension ([facility] COPD (chronic obstructive pulmonary disease) ([facility]) Chronic heart failure with preserved ejection fraction ([facility]) Dyslipidemia Edema Gastroesophageal reflux disease HTN (hypertension) [...] the morning and at noon and in theevening. Take with meals. insulin glargine (LANTUS) 100 [...] by mouth in the morning and 1 tablet(500 mg total) in the evening. Take with [...] accompanied by her aide, Gosia, from the critical access hospital/licensed master social worker. Today she is unaccompanied CV TESTING HISTORY: [...] 06/26/2024 Performed by Harinder Estrella MD at [facility] CHOLECYSTECTOMY COLONOSCOPY 2021 COLONOSCOPY DIAGNOSTIC / SCREENING N/A 09/12/2024 Performed by Aliya Solorzano DO at [facility]TR[facility] BRONCHOSCOPY N/A 11/22/2023 Performed by Libby Finley MD at [facility] Right heart cath N/A 06/26/2024 Performed by Harinder Estrella MD at [facility] TONSILLECTOMY TUBAL LIGATION [...] Stress: No Stress Concern Present (12/20/2023) [employer] - Occupational Stress Questionnaire Feeling of Stress : Only a little Social Connections: Moderately Isolated (12/20/2023) Social Connection and Isolation Panel [NHANES] Frequency of Communication with Friends and Family: More than three times a week Frequency of Social Gatherings with Friends and Family: More than three times a week Attends Faith Services: Never Active Member of Clubs or [...] Chronic heart failure with preserved ejection fraction ([facility]) 2. Primary hypertension 3. Dyspnea on exertion 4. Hyperlipidemia associated with type 2 diabetes mellitus ([facility]) 1. CTA of the coronaries with calcium [...] Referring Physician: Diaz Dalton MD [address] [place] [address] documented in this encounterSouthwestern Vermont Medical CenterCastlight Health [id number] Miscellaneous Notes* Telephone Encounter - Bethanie Patricia CMA - 01/02/2025 1:18 PM EDT Called patient to remind them to bring their most current copy of their medication list with them to their appt. Patient verbalizes understanding. documented in this encounterMercy Health [facility]05-01-2025 Telephone encounter Note* Telephone Encounter - Bethanie Patricia CMA - 01/02/2025 1:18 PM EDT Called patient to remind them to bring their most current copy of their medication list with them to their appt. Patient verbalizes understanding. [facility]04-07-2025 Miscellaneous Notes* Telephone Encounter - MOIZ Andrew - 12/09/2024 8:23 AM EDT PAP mask and supplies order with supportive documentation faxed to [facility]. documented in this encounterMercy Health Perrysburg Hospital04-07-2025 Telephone encounter Note* Telephone Encounter - MOIZ Andrew - 12/09/2024 8:23 AM EDT PAP mask and supplies order with supportive documentation faxed to [facility]. [facility]04-02-2025 History of Present illness Narrative* Pacheco Madrigal APRN-LUCIANO - 12/04/2024 1:00 PM EDT Images from the original note [...] not always using her oxygen. She denies anydyspnea, fevers, chills, hemoptysis, wheezing, or chest pain. Supplemental O2 use: none Current PAP interface: She uses a Nasal Mask. She does not use a chinstrap. She does not use the heated inline humidifier. Cleaning supplies with soap and water PMH: Pertinent History: Her pertinent medical history includes Past Medical History: Diagnosis Date Anxiety Deep vein thrombosis ([facility]) Dental disease no teeth Depression Diabetes mellitus type I ([facility]) Elevated cholesterol GERD (gastroesophageal reflux disease) Hyperlipidemia Hypertension Lymphadenopathy 2023 MR (mental retardation) Obesity Panic disorder Visual impairment Medications: Reviewed with patient. Current Outpatient Medications: albuterol (PROVENTIL HFA;VENTOLIN HFA) 90 mcg/actuation inhaler, Inhale 2 puffs every 6 (six) hoursas needed for wheezing or shortness of breath., [...] total) by mouth 3 (three) times a dayas needed for muscle spasms., Disp: 30 tablet, Rfl: 0 dicyclomine (BENTYL) 20 mg tablet, Take 1 tablet (20 mg total) by mouth every 6 (six) hours., Disp:, Rfl: empagliflozin (JARDIANCE) 10 mg tablet tablet, Take 1 tablet (10 mg total) by mouth in the morning., Disp: 90 tablet, Rfl: 3 FREESTYLE CRYSTAL 14 DAY SENSOR kit, APPLY 1 SENSOR TO BACK OF UPPER ARM. REMOVE AND REPLACE EVERY 14DAYS, Disp: , Rfl: furosemide (LASIX) 20 mg tablet, Take 1 tablet (20 mg total) by mouth daily., Disp: 90 tablet, Rfl:3 insulin aspart U-100 (NovoLOG) 100 unit/mL (3 [...] tablet by mouth every morning, Disp: 30 tablet,Rfl: 2 LORazepam (ATIVAN) 1 mg tablet, Take [...] Stress: No Stress Concern Present (12/20/2023) [employer] - Occupational Stress Questionnaire Feeling of Stress : Only a little Social Connections: Moderately Isolated (12/20/2023) Social Connection and Isolation Panel [NHANES] Frequency of Communication with Friends and Family: More than three times a week Frequency of Social Gatherings with Friends and Family: More than three times a week Attends Faith Services: Never Active Member of Clubs or [...] (3%)=58.3 events/hour; AHI (4%)=38.5 events/hour; Zach SpO2=61.0%; (Hqpwiq=487.0 lbs; BMI=45.5 kg/m2) CPAP 16 cm H20 pressure. DME: [employer] Data card was available for PAP usage data download. PAP compliance is unsatisfactory. Impression: Carissa was seen today for sleep apnea. Diagnoses and all orders for this visit: Obstructive sleep apnea syndrome - PAP Mask and Supplies Noncompliance with CPAP treatment Chronic hypoxic respiratory failure, on home oxygen therapy ([facility]) Obesity, Class III, BMI 40-49.9 (morbid obesity) ([facility]) Chronic hypoxic respiratory failure -2L with exertion [...] machine if not completed already. Tax ID: [id number] Scheduling Instructions: Length of Need: 12 months [...] not to drive if sleepy, and to pullboat engineer if sleepiness occurs while driving. Above plan [...] that have escaped final proofreading. Pacheco Madrigal [facility] Office: [phone] 10:08 AM on 12/06/2024 CC: MD Pacheco RUTHERFORD APRN-CNP 12/06/24 1008 documented in this encounterMercy Health [facility]04-02-2025 Instructions* Patient Instructions* DUSTIN Quarles - 12/04/2024 1:00 PM EDT If you re looking for general health and wellness resources, please visit [email or web address]. documented in this encounterMercy Health [facility]03-06-2025 History of Present illness Narrative* Diaz Dalton MD - 11/07/2024 10:48 AM ESTAssociated Problem(s): Type 2 diabetes mellitus with hyperglycemia, with long-term current use of insulin (CMS/HCC) Reports BS occasionally low but A1C 12.8. Continue semglee and increase jardiance. Stick to ADA diet and limit carbs. * Diaz Dalton MD - 11/07/2024 10:47 AM ESTAssociated Problem(s): Mild episode of recurrent major depressive disorder (HCC) (CMS/HCC) Mood controlled with medication and continue. * Diaz Dalton MD - 11/07/2024 10:47 AM ESTAssociated Problem(s): Gastroesophageal reflux disease Symptoms controlled with protonix and continue. * Diaz Dalton MD - 11/07/2024 10:47 AM ESTAssociated Problem(s): JOHN (generalized anxiety disorder) (CMS/HCC) Mood controlled with medication and continue. Use ativan PRN. * Diaz Dalton MD - 11/07/2024 10:47 AM ESTAssociated Problem(s): Class 3 severe obesity due to excess calories with serious comorbidity and body mass index (BMI) of 40.0 to 44.9 in adult ([facility]) Weight loss indicated. * Diaz Dalton MD - 11/07/2024 10:46 AM ESTAssociated Problem(s): Chronic heart failure with preserved ejection fraction (HFpEF) ([facility]) Continue lasix. * Diaz Dalton MD - 11/07/2024 10:00 AM EST Images from the original note were not included. Subjective Patient ID: Carissa Santos is a 44 y.o. female who presents for Follow-up. Follow up DM, depression, anxiety, CHF, and GERD. Reports BS improved and 100- 200. On semglee and decreased to once a [...] Addressed This Visit JOHN (generalized anxiety disorder) ([facility]) Mood controlled with medication and continue. Use ativan PRN. Chronic heart failure with preserved ejection fraction (HFpEF) (CMS/[facility]) Continue lasix. Relevant Medications furosemide (Lasix) 40 MG tablet Gastroesophageal reflux disease Symptoms controlled with protonix and continue. Mild episode of recurrent major depressive disorder (HCC) ([facility]) Mood controlled with medication and continue. Class 3 severe obesity due to excess calories with serious comorbidity and body mass index (BMI) of40.0 to 44.9 in adult ([facility]) Weight loss indicated. Type 2 diabetes mellitus with hyperglycemia, with long-term current use of insulin ([facility]) - Primary Reports BS occasionally low but A1C 12.8. Continue semglee and increase jardiance. Stick to ADA diet and limit carbs. Relevant Medications empagliflozin (Jardiance) 25 MG Continuous Glucose Cigar Packer And Grader ([place]Style Crystal 3 [place]) device documented in this encounterSaint Francis Hospital & Health [id number] History of Present illness Narrative* Diaz Dalton MD - 10/28/2024 2:56 PM ESTAssociated Problem(s): Chronic heart failure with preserved ejection fraction (HFpEF) ([facility]) Continue lasix. * Diaz Dalton MD - 10/28/2024 2:55 PM ESTAssociated Problem(s): Chronic hypoxic respiratory failure ([facility]) On home oxygen and follow with pulmonology. * Diaz Dalton MD - 10/28/2024 2:55 PM ESTAssociated Problem(s): Class 3 severe obesity due to excess calories with serious comorbidity and body mass index (BMI) of 40.0 to 44.9 in adult ([facility]) Weight loss indicated. * Diaz Dalton MD - 10/28/2024 2:54 PM ESTAssociated Problem(s): Type 2 diabetes mellitus with hyperglycemia, with long-term current use of insulin ([facility]) Stop mounjaro and decrease insulin. Check A1C. * Diaz Dalton MD - 10/28/2024 2:54 PM ESTAssociated Problem(s): Nausea & vomiting Use zofran PRN. * Diaz Dalton MD - 10/28/2024 2:54 PM ESTAssociated Problem(s): Dehydration Improved after IV fluids and monitor. Continue with increased fluid intake. * Diaz Dalton MD - 10/28/2024 2:15 PM EST Images from the original note [...] and advised to stop mounjaro. Dose due Monday.[place] weak and lightheaded. To ER and labs [...] hyperglycemia, with long-term current use of insulin ([facility]) Stop mounjaro and decrease insulin. Check A1C. Relevant Medications insulin glargine (Semglee) 100 UNIT/ML pen Other Relevant Orders Hemoglobin A1c Dehydration - Primary Improved after IV fluids and monitor. Continue with increased fluid intake. Nausea & vomiting Use zofran PRN. documented in this encounterSaint Francis Hospital & Health [id number] History of Present illness Narrative* Carmen Bowman DPM - 10/09/2024 1:15 PM EST Images from the original note [...] polyneuropathy, with long-term current use of insulin ([facility]) Type 2 diabetes mellitus with hyperglycemia, with long-term current use of insulin ([facility]) Type 2 diabetes mellitus without complication ([facility]) Vitamin D deficiency Medications Current Outpatient Medications: [...] Continuous Glucose Sensor (FreeStyle Crystal 3 Sensor) [facility], 1 each every 14 (fourteen) days, Disp: 2each, Rfl: 11 cyclobenzaprine (Flexeril) 10 MG tablet, [...] Rfl: 5 insulin pen needle (Droplet Pen [place]) 32G x 4 mm [facility], USE ONE PEN NEEDLE TO INJECT MEDICATION SIX TIMES A DAY, Disp: 200 each, Rfl: 10 Y-Kischjxeqqcu-Jansg-B12-B6 (Metanx) 3-90.314-2-35 MG capsule, Take 3 mg [...] with type 2 diabetes mellitus (CMS/HCC) E11.42 T-Wujqjrlcedka-Fzvvu-B12-B6 (Metanx) 3-90.314-2-35 MG capsule 2. Neuritis M79.2 P-Cwaamxyliegv-Imtzi-B12-B6 (Metanx) 3-90.314-2-35 MG capsule Patient examined and [...] medications and I think that it could greatl y improve some of her symptomatology. She was provided with a sample today and a prescription was sent to [facility]. I recommend follow up for at-risk diabetic [...] understanding. Carmen Bowman DPM documented in this encounterSaint Francis Hospital & Health [id number] History of Present illness Narrative* Katelyn Recio MD - 10/07/2024 8:15 AM EST Carissa Santos Date of visit: 10/07/2024 Date of : 1980 Age: 44 y.o. Patient Active Problem List Diagnosis Hyperglycemia Chest wall pain Type 2 diabetes mellitus with hyperglycemia, with long-term current use of insulin ([facility]) Mild developmental delay Obstructive sleep apnea syndrome Hyperlipidemia associated with type 2 diabetes mellitus ([facility]) Abnormal ECG during exercise stress test Mediastinal lymphadenopathy Acute cystitis without hematuria Pulmonary nodule Dyspnea on exertion Moderate persistent asthma without complication Chronic hypoxic respiratory failure ([facility]) BMI 40.0-44.9, adult ([facility]) Pulmonary hypertension ([facility]) COPD (chronic obstructive pulmonary disease) ([facility]) Chronic heart failure with preserved ejection fraction ([facility]) Allergies Allergen Reactions Sulfamethoxazole-Trimethoprim Hives, Itching and [...] mouth 2 (two) times a day as neededfor seizures. cyclobenzaprine (FLEXERIL) 10 mg tablet Take [...] by mouth in the morning and 1 tablet(500 mg total) in the evening. Take with [...] breath is limiting and worsening. She has nothad chest pain. She has not had syncope or edema She is also seen by Dr. Meenakshi Ferrer is . Her was acutely ill several months ago with a gangrenous gallbladder. Heis improving She does not work outside the home secondary to mild developmental delay. She is accompanied today by her aide, Gosia, from the critical access hospital/licensed master social worker CV TESTING HISTORY: ECHO: Echo complete W/ [...] 06/26/2024 Performed by Harinder Estrella MD at [facility] CHOLECYSTECTOMY COLONOSCOPY 2021 COLONOSCOPY DIAGNOSTIC / SCREENING N/A 09/12/2024 Performed by Aliya Solorzano DO at [facility] BRONCHOSCOPY N/A 11/22/2023 Performed by Libby Finley MD at [facility] Right heart cath N/A 06/26/2024 Performed by Harinder Estrella MD at [facility] TONSILLECTOMY TUBAL LIGATION [...] Stress: No Stress Concern Present (12/20/2023) [employer] - Occupational Stress Questionnaire Feeling of Stress : Only a little Social Connections: Moderately Isolated (12/20/2023) Social Connection and Isolation Panel [NHANES] Frequency of Communication with Friends and Family: More than three times a week Frequency of Social Gatherings with Friends and Family: More than three times a week Attends Faith Services: Never Active Member of Clubs or [...] 154.9 cm (5' 1 ) Wt 100.2 kg(221 lb) SpO2 97% BMI 41.76 kg/m Orders [...] Chronic heart failure with preserved ejection fraction ([facility]) 3. Type 2 diabetes mellitus with hyperglycemia, with long-term current use of insulin ([facility]) - MOUNJARO 2.5 mg/0.5 mL pen injector; [...] Referring Physician: Diaz Dalton MD [address] [place] [facility] [place] [address] documented in this encounterMercy Health [facility]02-03-2025 Instructions* Patient Instructions* Katelyn Recio MD - 10/07/2024 8:15 AM EST Discontinue Actos Start Jardiance Increase tirzepatide/Mounjaro documented in this encounterMercy Health Perrysburg Hospital01-31-2025 Miscellaneous Notes* Telephone Encounter - Sue Chow CMA - 10/04/2024 9:36 AM EST Called patient to remind them to bring their most current copy of their medication list with them to their appt. Patient verbalizes understanding. documented in this encounterMercy Health [facility] Hospital01-31-2025 Telephone encounter Note* Telephone Encounter - Sue Chow CMA - 10/04/2024 9:36 AM EST Called patient to remind them to bring their most current copy of their medication list with them to their appt. Patient verbalizes understanding. [facility]01-14-2025 Miscellaneous Notes* Telephone Encounter - Allyson Briscoe CMA - 09/17/2024 1:41 PM EST ----- Message from Dr. Aliya Solorzano DO sent at 09/17/2024 10:23 AM EST ----- Please let patient know that we did not get a polyp ibut I do recommend surveillance colonoscopy in5 years because there was a polyp but it was not retrieved. Thanks, Dr. Lawrence * Telephone Encounter - Allyson Briscoe CMA - 09/17/2024 1:41 PM EST Spoke with patient regarding pathology results. Patient verbally understood with no further questions. Recall put in chart. documented in this encounterRegency Hospital Company [facility] [id number] Telephone encounter Note* Telephone Encounter - Allyson Briscoe CMA - 09/17/2024 1:41 PM EST ----- Message from Dr. Aliya Solorzano DO sent at 09/17/2024 10:23 AM EST ----- Please let patient know that we did not get a polyp ibut I do recommend surveillance colonoscopy in5 years because there was a polyp but it was not retrieved. Thanks, Dr. Lawrence [facility] [id number] Telephone encounter Note* Telephone Encounter - Allyson Briscoe CMA - 09/17/2024 1:41 PM EST Spoke with patient regarding pathology results. Patient verbally understood with no further questions. Recall put in chart. [facility] [id number] Miscellaneous Notes* Perioperative Nursing Note - Marylu Otero RN - 09/05/2024 1:30 PM EST Preoperative Education Checklist- General Surgery date: 09/12/24 Surgery time: 1130 Arrival time: 0930 1. Bring a photo ID and your insurance card with you the day of surgery. You will check in at the main lobby of the [facility]- registration desk is straight ahead as soon as you walk in. Tell them you are here for surgery. 2. If you have a Living Will/Durable Power of Utility Sales And Service Manager for Health Care that is not on [...] after you have bathed. 5. NO nail solomon islander/acrylic on at least one finger. If you are having a hand, wrist or foot surgery then all nail solomon islander and artificial/acrylic nails must be removed from [...] least 8 hours and marijuana for 24 hoursprior to arrival for your surgery. 16. If [...] please call the Preadmission Testing office at [phone], Mon.-Fri. 7 a.m.-3 p.m. Leave a voicemail [...] Stop taking 0 days prior to procedure LEYLA ELLIPTA 200-62.5-25 mcg blister with device Take morning of procedure documented in this encounterProMedica Bay Park HospitalTetra Tech [facility] [id number] Nurse Note* Perioperative Nursing Note - Marylu Otero RN - 09/05/2024 1:30 PM EST Preoperative Education Checklist- General Surgery date: 09/12/24 Surgery time: 1130 Arrival time: 929 1. Bring a photo ID and your insurance card with you the day of surgery. You will check in at the main lobby of the [facility]- registration desk is straight ahead as soon as you walk in. Tell them you are here for surgery. 2. If you have a Living Will/Durable Power of Utility Sales And Service Manager for Health Care that is not on [...] after you have bathed. 5. NO nail solomon islander/acrylic on at least one finger. If you are having a hand, wrist or foot surgery then all nail solomon islander and artificial/acrylic nails must be removed from [...] least 8 hours and marijuana for 24 hoursprior to arrival for your surgery. 16. If [...] please call the Preadmission Testing office at [phone], Mon.-Fri. 7 a.m.-3 p.m. Leave a voicemail [...] blister with device Take morning of procedure [facility] History of Present illness Narrative* Dayanara Wheatley LPN - 08/06/2024 2:00 PM EST Reason for Appointment: Patient ID: Carissa Santos [...] Gluc Sensor (FreeStyle Crystal 14 Day Sensor) [facility] [place] 1 SENSOR to back OF UPPER [...] UNITS DAILY* insulin pen needle (Droplet Pen [place]) 32G x 4 mm [facility] USE ONE PEN NEEDLE TO INJECT MEDICATION [...] to allergen 10/01/2009 JOHN (generalized anxiety disorder) ([facility]) 10/01/2009 Contracture, unspecified ankle 04/06/2023 Chronic heart failure with preserved ejection fraction (HFpEF) ([facility]) 04/06/2023 Equinus deformity of left foot 04/06/2023 Gastroesophageal reflux disease 04/06/2023 Genital warts 04/06/2023 Hot flashes due to menopause 04/06/2023 Type 2 diabetes mellitus with microalbuminuria, with long-term current use of insulin ([facility]) 04/06/2023 Internal derangement of left shoulder 04/06/2023 Irritable bowel syndrome with diarrhea 04/06/2023 Mild developmental delay 09/29/2021 Migraine without aura and without status migrainosus, not intractable ([facility]) 04/06/2023 Mild episode of recurrent major depressive disorder (HCC) ([facility]) 04/06/2023 Class 3 severe obesity due to excess calories with serious comorbidity and body mass index (BMI) of40.0 to 44.9 in adult ([facility]) 11/21/2022 Type 2 diabetes mellitus with polyneuropathy ([facility]) 06/10/2021 Obstructive sleep apnea syndrome 09/30/2009 Osteoarthritis of knee 04/06/2023 Overactive bladder 04/06/2023 Panic disorder without agoraphobia ([facility]) 11/12/2009 Dyslipidemia ([facility]) 04/22/2010 Spondylosis without myelopathy 08/10/2010 Hypoxia 01/04/2024 Obesity hypoventilation syndrome ([facility]) 01/04/2024 Elevated blood-pressure reading without diagnosis of hypertension 01/04/2024 Right carpal tunnel syndrome 01/04/2024 Type 2 diabetes mellitus with hyperglycemia, with long-term current use of insulin ([facility]) 02/12/2024 Chronic hypoxic respiratory failure ([facility]) 02/19/2024 Moderate persistent asthma without complication ([facility]) 02/19/2024 Pulmonary hypertension ([facility]) 08/06/2024 Resolved Ambulatory Problems Diagnosis Date Noted Acute kidney injury (DREW) with acute tubular necrosis (ATN) ([facility]) 09/30/2021 Acute pain of left shoulder 04/06/2023 Shoulder joint pain 04/06/2021 Carpal tunnel syndrome of left wrist 04/06/2023 Convulsions in the 09/30/2009 Cubital tunnel syndrome on left 11/04/2022 Fecal incontinence 06/22/2016 High anion gap metabolic acidosis 09/30/2021 Hyperglycemia 03/01/2019 Mild intellectual disability ([facility]) 09/30/2009 Other chronic pain 04/06/2023 Pneumonia due to infectious organism 09/29/2021 Poorly controlled diabetes mellitus ([facility]) 08/10/2015 Normal gynecologic examination 06/09/2015 Missed period 04/06/2023 DKA, type 1, not at goal ([facility]) 09/27/2021 Type 2 diabetes mellitus ([facility]) 09/30/2009 Cavitary lesion of lung 08/10/2023 Other chest pain 08/10/2023 Acute pain of right knee 05/29/2024 Past Medical History: Diagnosis Date Ankle fracture Anxiety and depression ([facility]) At low risk for fall Bilateral leg edema Chest pain, central Chronic left shoulder pain Chronic pain Chronic respiratory failure ([facility]) Epilepsy ([facility]) GERD (gastroesophageal reflux disease) History of being hospitalized History of medical problems Hyperlipidemia ([facility]) Insomnia, persistent MDD (major depressive disorder), recurrent episode, mild (HCC) ([facility]) Morbid obesity with BMI of 40.0-44.9, adult ([facility]) Nocturnal hypoxemia Nonsmoker OAB (overactive bladder) Obesity JOSE M (obstructive sleep apnea) Postoperative urinary retention Primary osteoarthritis of left knee Seasonal allergies Type 2 diabetes mellitus with diabetic polyneuropathy, with long-term current use of insulin ([facility]) Type 2 diabetes mellitus without complication ([facility]) Vitamin D deficiency HISTORY PAST MEDICAL HISTORY SOCIAL HISTORY Past Medical History: Diagnosis Date Ankle fracture Anxiety and depression ([facility]) At low risk for fall Bilateral leg edema Chest pain, central Chronic left shoulder pain Chronic pain Chronic respiratory failure ([facility]) Dyslipidemia ([facility]) Epilepsy ([facility]) Childhood epilepsy JOHN (generalized anxiety disorder) ([facility]) Genital warts GERD (gastroesophageal reflux disease) History of being hospitalized pneumonia, diabetes, infection [10/29/21-11/05/21] History of medical problems mild mental retardation Hyperlipidemia ([facility]) Insomnia, persistent Irritable bowel syndrome with diarrhea MDD (major depressive disorder), recurrent episode, mild (HCC) ([facility]) Migraine without aura and without status migrainosus, not intractable ([facility]) Morbid obesity with BMI of 40.0-44.9, adult ([facility]) Nocturnal hypoxemia Nonsmoker OAB (overactive bladder) Obesity JOSE M (obstructive sleep apnea) Postoperative urinary retention Primary osteoarthritis of left knee Seasonal allergies Type 2 diabetes mellitus with diabetic polyneuropathy, with long-term current use of insulin ([facility]) Type 2 diabetes mellitus with hyperglycemia, with long-term current use of insulin ([facility]) Type 2 diabetes mellitus without complication ([facility]) Vitamin D deficiency Social History Tobacco Use [...] nursing note reviewed. Exam conducted with a microcomputer support specialist present. Vitals: Estimated body mass index is [...] of: Feliz Benz DO documented in this encounterSaint Francis Hospital & Health [id number] History of Present illness Narrative* Diaz Dalton MD - 08/06/2024 12:07 PM ESTAssociated Problem(s): Type 2 diabetes mellitus with hyperglycemia, with long-term current use of in sulin ([facility]) BS elevated with steroids and monitor. A1C improved but still elevated and increase mounjaro. * Diaz Dalton MD - 08/06/2024 12:07 PM ESTAssociated Problem(s): Pulmonary hypertension (CMS/HCC) Continued SOB and follow with specialists. * Diaz Dalton MD - 08/06/2024 12:07 PM ESTAssociated Problem(s): Chronic hypoxic respiratory failure (CMS/HCC) On home oxygen and follow with pulmonology. * Diaz Dalton MD - 08/06/2024 12:07 PM ESTAssociated Problem(s): Chronic heart failure with preserved ejection fraction (HFpEF) (CMS/HCC) No change with lasix and increase to 40 mg. * Diaz Dalton MD - 08/06/2024 11:30 AM EST Images from the original note were not included. Subjective Patient ID: Carissa Santos is a 44 y.o. female who presents for Follow-up ([facility] f/UP). ER follow up from 07/21 for chest pain and SOB. On oxygen and following with pulmonology. Recently had heart cath that showed mild pulmonary HTN and fluid overload. Started lasix 20 mg but no change.ER gave steroids and repeat BMP showed glucose [...] referral to General Surgery documented in this encounterSaint Francis Hospital & Health [id number] History of Present illness Narrative* Cassy Davila APRN-LUCIANO - 07/30/2024 6:47 PM EST Received critical lab result from blood work drawn today of a glucose of 577. Spoke with patient onthe phone. She states her blood sugars have been running high all day. She was instructed to call her PCP for further instructions. She is on insulin. DUSTIN Rausch 07/30/24 1849 documented in this encounterMercy [facility]11-26-2024 Miscellaneous Notes* Telephone Encounter - MOIZ Dubon - 07/30/2024 6:41 PM EST Contract: ROBBY Markham calling from [facility] second page for critical lab on patient. Please call Shahrzad @ [phone]. Sent secure chat to Cassy Gómezluis miguel documented in this encounterMercy Health Perrysburg Hospital11-26-2024 Telephone encounter Note* Telephone Encounter - MOIZ Dubon - 07/30/2024 6:41 PM EST Contract[facility]. Please call Shahrzad @ [phone]. Sent secure chat to Cassy Davila [facility]11-26-2024 Miscellaneous Notes* Telephone Encounter - Ramona Sarkar - 07/30/2024 6:18 PM EST Contract: ROBBY See for Critical Lab * Telephone Encounter - Ramona Sarkar - 07/30/2024 6:18 PM EST Secure Chat sent to Cassy Felton sent documented in this encounterMercy Health Perrysburg Hospital11-26-2024 Telephone encounter Note* Telephone Encounter - Ramona Sarkar - 07/30/2024 6:18 PM EST Contract: ROBBY See for Critical Lab [facility]11-26-2024 Telephone encounter Note* Telephone Encounter - Ramona Sarkar - 07/30/2024 6:18 PM EST Secure Chat sent to Cassy Davila PUBLIC WEIGHER Routing sent [facility]11-14-2024 History of Present illness Narrative* Hair See MD - 07/18/2024 11:30 AM EST Carissa Gold Angela Date of visit: 07/18/2024 Date of : 1980 Age: 43 y.o. Patient Active Problem List Diagnosis Hyperglycemia Chest pain, unspecified Type 2 diabetes mellitus with hyperglycemia, with long-term current use of insulin ([facility]) Mild developmental delay Obstructive sleep apnea syndrome Hyperlipidemia associated with type 2 diabetes mellitus ([facility]) Abnormal ECG during exercise stress test Mediastinal lymphadenopathy Acute cystitis without hematuria Pulmonary nodule Dyspnea on exertion Moderate persistent asthma without complication Chronic hypoxic respiratory failure ([facility]) BMI 45.0-49.9, adult ([facility]) Pulmonary hypertension ([facility]) Allergies Allergen Reactions Sulfamethoxazole-Trimethoprim Hives, Itching and [...] total) by mouth every 6 (six) hours. jffjckmjcoe-ffnwkjczc-ybghderp (TRELEGY ELLIPTA) 200-62.5-25 mcg blister with device [...] by mouth in the morning and 1 tablet(500 mg total) in the evening. Take with [...] reviewed today. She presents to clinic wearing oxygen.She was currently on 3 L. She wears 3 L oxygen 247. She has significant dyspnea with minimal exertion. No palpitations. No lightheadedness or dizziness. Past Medical History: Diagnosis Date Anxiety Deep vein thrombosis ([facility]) Dental disease no teeth Depression Diabetes mellitus type I ([facility]) Elevated cholesterol GERD (gastroesophageal reflux disease) Hyperlipidemia Hypertension Lymphadenopathy 2023 MR (mental retardation) Obesity Panic disorder Visual impairment No data recorded No data recorded No data recorded Past Surgical History: Procedure Laterality Date Cardiac Invasive N/A 06/26/2024 Performed by Harinder Estrella MD at [facility] CHOLECYSTECTOMY COLONOSCOPY 2021 ENDOBRONCHIAL ULTRASOUND BRONCHOSCOPY N/A 11/22/2023 Performed by Libby Finley MD at [facility] Right heart cath N/A 06/26/2024 Performed by Harinder Estrella MD at [facility] TONSILLECTOMY TUBAL LIGATION [...] Stress: No Stress Concern Present (12/20/2023) [employer] - Occupational Stress Questionnaire Feeling of Stress : Only a little Social Connections: Moderately Isolated (12/20/2023) Social Connection and Isolation Panel [NHANES] Frequency of Communication with Friends and Family: More than three times a week Frequency of Social Gatherings with Friends and Family: More than three times a week Attends Faith Services: Never Active Member of Clubs or [...] 1. Dyspnea on exertion 2. Pulmonary hypertension ([facility]) Assessment: Chronic dyspnea on exertion Pulmonary hypertension; [facility] 06/26/2024 Normal coronary arteries by coronary CTA 08/08/2023 (calcium score of 0) Hyperlipidemia Diabetes mellitus type 2, most recent A1C 12.9% Chronic hypoxic respiratory failure on home O2, mostly 3 L COPD Developmental delay [facility] 06/26/2024: RA 11, RV 50/8, PA 46/23 [...] tirzepatide. Would have a low threshold to startingSGLT2 inhibitor. Will see how she does with Lasix but will consider adding SGLT2 inhibitor next visit. She has upcoming visit with ordnance engineer. Follow-up with Cardiology in a few months to reassess volume status. TODAYS ORDERS No orders of the defined types were placed in this encounter. FOLLOW UP No follow-ups on file. PCP: DIAZ DALTON MD Referring Physician: Diaz Dalton MD [address] [place] [address] documented in this [facility]11-13-2024 Miscellaneous Notes* Telephone Encounter - Bethanie Patricia CMA - 07/17/2024 9:48 AM EST Called patient to remind them to bring their most current copy of their medication list with them to their appt. Patient verbalizes understanding. documented in this [facility]11-13-2024 Telephone encounter Note* Telephone Encounter - Bethanie Patricia CMA - 07/17/2024 9:48 AM EST Called patient to remind them to bring their most current copy of their medication list with them to their appt. Patient verbalizes understanding. [facility] HospitalArieso [id number] History of Present illness Narrative* Barry Snowden NP - 07/15/2024 10:15 AM EST Images from the original note were [...] over proximal incision. I recommend that patient rubincision to help desensitize nerve. She will follow up as needed. Questions answered in laymen terms at the bedside. The diagnosis, home exercise plan and any ongoing restrictions/ recommendations reviewed. If unable to be reached in office, I recommend evaluation at nearest Emergency Room if any symptoms worsened or new symptoms develop for requiring urgent evaluation. Barry Snowden APRN-PUBLIC WEIGHER documented in this encounterSaint Francis Hospital & Health [id number] History of Present illness Narrative* Maria C Bailey RN - 07/04/2024 9:00 AM EDT Patient presents to [place] office for post cardiac catheterization site evaluation. [...] prior to that appointment. documented in this encounterMercy Health [facility]10-30-2024 Miscellaneous Notes* Telephone Encounter - Bethanie Patricia CMA - 07/03/2024 9:53 AM EDT Called patient to remind them to bring their most current copy of their medication list with them to their appt. Patient verbalizes understanding. documented in this encounterMercy Health [facility]10-30-2024 Telephone encounter Note* Telephone Encounter - Bethanie Patricia CMA - 07/03/2024 9:53 AM EDT Called patient to remind them to bring their most current copy of their medication list with them to their appt. Patient verbalizes understanding. [facility]10-21-[facility]24 History of Present illness Narrative* Barry Snowden NP - 06/24/2024 10:15 AM EDT Images from the original note were not included. HISTORY OF PRESENT ILLNESS: Carissa Santos is an 43 y.o. @ female. 1st po x 7 days s/p RT CTR 06/17/24. Soreness in wrist. Taking motrin and TYL. Keeping wrist wrapped. Denies N/T, swelling. Does not wake at HS. Denies drainage. Denies issues with incision. Stitchesintact, removed today. Incision healing well. REVIEW OF [...] planes with 5 out of 5 strength. Radialand ulnar pulses were present and equal bilaterally postoperatively. Sensation to light touch was intact to all dermatomes to operative upper extremity postoperatively. Capillary refill was less than2 seconds postoperatively to operative upper extremity nailbeds. [...] diagnosis, home exercise plan and any ongoing restrictions/recommendations reviewed. If unable to be reached in office, I recommend evaluation at nearest Emergency Room if any symptoms worsened or new symptoms develop for requiring urgent evaluation. Barry Snowden APRN-PUBLIC WEIGHER documented in this encounterSaint Francis Hospital & Health [id number] Miscellaneous Notes* Telephone Encounter - Rochelle Lovell RN - 06/20/2024 8:44 AM EDT Received order from Tracie at the [place] office. Patient scheduled for cath on 06/26/24 at 8:30 am at [facility] with TLM. Notified Tracie. No Covid test required at this time. documented in this encounterMercy Health Perrysburg Hospital10-17-2024 Telephone encounter Note* Telephone Encounter - Rochelle Lovell RN - 06/20/2024 8:44 AM EDT Received order from Tracie at the [place] office. Patient scheduled for cath on 06/26/24 at 8:30 am at [facility] with TLM. Notified Tracie. No Covid test required at this time. [facility]10-16-2024 Miscellaneous Notes* Telephone Encounter - Bethanie Patricia CMA - 06/19/2024 9:24 AM EDT Called patient to remind them to bring their most current copy of their medication list with them to their appt. Patient verbalizes understanding. documented in this encounterMercy Health Perrysburg Hospital10-16-2024 Telephone encounter Note* Telephone Encounter - Bethanie Patricia CMA - 06/19/2024 9:24 AM EDT Called patient to remind them to bring their most current copy of their medication list with them to their appt. Patient verbalizes understanding. [facility]10-15-2024 Note [id number]10-15-2024 Telephone encounter Note* Telephone Encounter - Barry Snowden NP - 06/18/2024 10:01 AM EDT She should have [place] at [facility] in [place] [facility] Work Phone: 1(640) 208-208010-15-2024 Miscellaneous Notes* Telephone Encounter - Barry Snowden NP - 06/18/2024 10:01 AM EDT She should have [facility] at [facility] in [place] * Telephone Encounter - Kristan Chan - 06/18/2024 9:58 AM EDT Patient called requesting pain meds. States that she is really hurting. documented in this encounterSaint Francis Hospital & Health [id number] Telephone encounter Note* Telephone Encounter - Kristan Chan - 06/18/2024 9:58 AM EDT Patient called requesting pain meds. States that she is really hurting. [facility] Health [id number] [facility] SURGERY Clinical Discharge Summary PERSON INFORMATION Name CARISSA SANTOS Age 43 Years 1980 Sex FEMALE Language S[place] PCP DIAZ DALTON Marital Status Phone Med Service Ambulatory Surgery Acct# Arrival 06/17/2024 08:13:31 Visit Reason SURGERY - RIGHT CARPAL TUNNEL RELEASE Acuity LOS 171 20:16 Address: [facility] [address] Comment: PROVIDER INFORMATION VITALS INFORMATION Vital Sign [...] every day. Durable Medical Equipment for Prescription ([employer] CRYSTAL SENSOR 14D) APPLY 1 SENSOR TO BACK OF UPPER ARM. REMOVE AND REPLACE EVERY 14 DAYS. fluticasone/umeclidinium/vilanterol (Trelegy Ellipta 200 mcg-62.5 mcg-25 mcg/inh inhalation powder)1 puff(s) Inhale (breathe in) every day. insulin [...] release) 1 tab(s) Oral (given by mouth) everyday. lisinopril (lisinopril 2.5 mg oral tablet) 1 tab(s) Oral (given by mouth) every day. LORazepam (LORazepam 1 mg oral tablet) 1 tab(s) Oral (given by mouth) 3 times per day as needed foranxiety. nabumetone (nabumetone 500 mg oral tablet) 2 [...] every day. Durable Medical Equipment for Prescription (Sensentia[employer] SENSOR 14D) APPLY 1 SENSOR TO BACK OF UPPER ARM. REMOVE AND REPLACE EVERY 14 DAYS. fluticasone/umeclidinium/vilanterol (Trelegy Ellipta 200 mcg-62.5 mcg-25 mcg/inh inhalation powder)1 puff(s) Inhale (breathe in) every day. insulin [...] release) 1 tab(s) Oral (given by mouth) everyday. lisinopril (lisinopril 2.5 mg oral tablet) 1 tab(s) Oral (given by mouth) every day. LORazepam (LORazepam 1 mg oral tablet) 1 tab(s) Oral (given by mouth) 3 times per day as needed foranxiety. nabumetone (nabumetone 500 mg oral tablet) 2 tab(s) Oral (given by mouth) 2 times per day. oxyBUTYnin (oxybutynin 15 mg/24 hr (more content not included)...[facility] [id number] NoteProcedure: Decompression of median nerve right wrist with [...] to proceed with surgery and the patient requestedthe same. Findings: The median nerve was noted to be present and intact within the carpal canal. The carpal canal/tunnel was stenotic Blood Loss: Scant Specimen: None Procedure Summary: The upper extremity was sterilely prepped and draped in usual fashion. A timeoutwas taken in the operating room. After administration [...] wound was irrigated with copious amounts sterile salineand the skin was closed with nylon suture. I infiltrated the incision site with half percent Marcaine 3 cc. Adaptic sterile dressings and an Marco A bandage were applied with the thumb in apposition Complications: None [Electronically Signed on: 06/17/2024 10:38 EDT] Gary Miller DO [Verified on: 06/17/2024 10:38 EDT] Gary Miller [facility]10-11-2024 Telephone encounter Note * Telephone Encounter - Barry Snowden NP - 06/14/2024 11:57 AM EDT Post op pain rx. PDMP reviewed [facility] [id number] Miscellaneous Notes* Telephone Encounter - Barry Snowden NP - 06/14/2024 11:57 AM EDT Post op pain rx. PDMP reviewed documented in this encounterSaint Francis Hospital & Health [id number] History of Present illness Narrative* Lindsay Arrieta, - 06/13/2024 1:00 PM EDT Images from the original note [...] shortness of breath with exertion, chronic hypoxic respiratoryfailure, asthma, severely impaired DLCO on PFT data. [...] She does note when she misses the Trelegyshe has a heaviness and a tight this of her chest and she feels more winded. Continue Trelegy. She has not required any rescue albuterol inhaler. No exacerbations or respiratory infections since lastoffice visit. VITALS BP 136/73 Pulse 93 Ht [...] normal. The right ventricular basal diameter is 32.0mm. Systolic function is normal. Left Atrium Left [...] well visualized. There is trace regurgitation. There isno evidence of tricuspid valve stenosis. The right [...] paratracheal lymph node. Dr. Lindsay Arrieta DO. [facility] Office: [phone] documented in this encounterProMedica Bay Park HospitalTetra Tech [facility] [id number] Telephone encounter Note* Telephone Encounter - UYEN Gunter - 06/07/2024 12:42 PM EDT We have the clearance we are good to go [facility] [employer] Work Phone: 1(763) 657-364010-04-2024 Miscellaneous Notes* Telephone Encounter - UYEN Gunter - 06/07/2024 12:42 PM EDT We have the clearance we are good to go * Telephone Encounter - Luiza Evans - 06/03/2024 12:42 PM EDT Prema at Dr Lopez office called and left vm regarding patient, she stated you needed an updatedsx clearance for patient having wrist sx? She said there is addended one from 05/13/24 in chart. If you have questions or this is not what you need, please call her at [phone] option 3 goes straight to her desk. documented in this encounterSaint Francis Hospital & Health [id number] Telephone encounter Note* Telephone Encounter - Diaz Dalton MD - 06/07/2024 11:50 AM EDT Script sent. [facility] [id number] Miscellaneous Notes* Telephone Encounter - Diaz Dalton MD - 06/07/2024 11:50 AM EDT Script sent. * Telephone Encounter - PREMA MEDINA - 06/07/2024 11:21 AM EDT Prior auth for insulin went through, but was Prior auth'd for Semglee, if we can change the script and send in 1 [facility]. clm documented in this encounterSaint Francis Hospital & Health [id number] Telephone encounter Note* Telephone Encounter - PREMA MEDINA - 06/07/2024 11:21 AM EDT Prior auth for insulin went through, but was Prior auth'd for [employer], if we can change the script and send in 1 month to [facility]. clm [facility] [id number] Telephone encounter Note* Telephone Encounter - Luiza Evans - 06/03/2024 12:42 PM EDT Prema at Dr Lopez office called and left regarding patient, she stated you needed an updatedsx clearance for patient having wrist sx? She said there is addended one from 05/13/24 in chart. If you have questions or this is not what you need, please call her at [phone] option 3 goes straight to her desk. [facility] [id number] History of Present illness Narrative* Gary Miller, DO - 05/30/2024 2:30 PM EDT Images from the original note were not included. HISTORY OF PRESENT ILLNESS: Carissa Santos is an 43 y.o. @ female. Chief complaint RT hand N/T RT Wrist: cleared by Dr Dalton 05/13/24, had echo 05/14 [facility] Right wrist pain and N/T x 8-9 months and progressively getting worse. She notes that she is now getting pain in her thumb. She notes N/T in Thumb, IF and MF that is nearly constant. She wakes at HS.She wears [facility] wrist brace. Describes pain as sharp. Trouble lifting and gripping, she admits dripping things. Admits weakness. Icing and elevating. Symptoms are worse when is using her phone and cooking. Prior treatment: EMG, ice, elevation, wrist immobilizer Pt is LT handed Pt is O2 3L 24/7 nasal canula MEDICATION: Current Outpatient Medications on File Prior to Visit Medication Sig Dispense Refill acyclovir (Zovirax) 400 MG tablet every 12 (twelve) hours. albuterol HFA 90 mcg/act inhaler INHALE 2 PUFFS BY MOUTH EVERY 4 HOURS NEEDED FOR WHEEZING 8.5 g10 atorvastatin (Lipitor) 40 MG tablet Take 1 [...] Gluc Sensor (FreeStyle Crystal 14 Day Sensor) [facility] [place] 1 SENSOR to back OF UPPER [...] each 5 insulin pen needle (Droplet Pen [place]) 32G x 4 mm [facility] USE ONE PEN NEEDLE TO INJECT MEDICATION [...] 3 TIMES DAILY NEEDED FOR ANXIETY 90 tablet0 metoprolol tartrate (Lopressor) 50 MG tablet take [...] solution pen-injector INJECT 2.5MG SUBCUTANEOUSLY ONCE WEEKLY 2mL 5 Tirzepatide (Mounjaro) 5 MG/0.5ML solution pen-injector Inject 5 mg under the skin 1 (one) time perweek 2 mL 5 traZODone (Desyrel) 150 MG tablet 1 (one) time each day at the same time. Trelegy Ellipta 200-62.5-25 MCG/ACT aerosol powder Inhale 1 puff in the morning. [DISCONTINUED] insulin glargine (Lantus SoloStar) 100 UNIT/ML pen Inject 15 Units under the skin inthe morning and 15 Units before bedtime. 5 each 5 [DISCONTINUED] insulin glargine (Lantus SoloStar) 100 UNIT/ML pen Inject 15 Units under the skin inthe morning and 15 Units before bedtime. 5 each 5 No current facility-administered medications on file prior to visit. MEDICAL HISTORY: Past Medical History: Diagnosis Date Ankle fracture Anxiety and depression ([facility]) At low risk for fall Bilateral leg edema Chest pain, central Chronic left shoulder pain Chronic pain Chronic respiratory failure ([facility]) Dyslipidemia ([facility]) Epilepsy ([facility]) Childhood epilepsy JOHN (generalized anxiety disorder) ([facility]) Genital warts GERD (gastroesophageal reflux disease) History of being hospitalized pneumonia, diabetes, infection [10/29/21-11/05/21] History of medical problems mild mental retardation Hyperlipidemia ([facility]) Insomnia, persistent Irritable bowel syndrome with diarrhea MDD (major depressive disorder), recurrent episode, mild (HCC) ([facility]) Migraine without aura and without status migrainosus, not intractable ([facility]) Morbid obesity with BMI of 40.0-44.9, adult ([facility]) Nocturnal hypoxemia Nonsmoker OAB (overactive bladder) Obesity JOSE M (obstructive sleep apnea) Postoperative urinary retention Primary osteoarthritis of left knee Seasonal allergies Type 2 diabetes mellitus with diabetic polyneuropathy, with long-term current use of insulin ([facility]) Type 2 diabetes mellitus with hyperglycemia, with long-term current use of insulin ([facility]) Type 2 diabetes mellitus without complication ([facility]) Vitamin D deficiency ALLERGIES: Allergies Allergen Reactions [...] Comments denies dribbling. Incontinence denies. Musculoskeletal: CommentsSee [facility] for details. Skin: Rash denies. Neurologic: [...] to proceed with surgery. I anticipate a [facility] marylou Miller D.O. documented in this encounterSaint Francis Hospital & Health [id number] History of Present illness Narrative* Diaz Dalton MD - 05/29/2024 11:15 AM EDTAssociated Problem(s): Right carpal tunnel syndrome Continued pain and follow with ortho. * Diaz Dalton MD - 05/29/2024 11:14 AM EDTAssociated Problem(s): Type 2 diabetes mellitus with microalbuminuria, with long-term current use of insulin ([facility]) BS elevated and A1C 12.9. Not taking lantus BID and resume. Continue mounjaro. Stick to ADA diet and limit carbs. * Diaz Dalton MD - 05/29/2024 11:14 AM EDTAssociated Problem(s): Acute pain of right knee Recent fall and continued pain. X-ray negative. Start PT and ice PRN. Continue relafen and flexeril. * Diaz Dalton MD - 05/29/2024 9:45 AM EDT Images from the original note were not included. Subjective Patient ID: Carissa Santos is a 43 y.o. female who presents for Knee Pain (Fell 05/15/24). ER follow up from 05/16 for right knee pain. Fell [facility] down [facility] [employer] [facility] and hurt right knee. To ER [...] lantus once a day because need refill. Mounjaroincreased last month. Scheduled with ortho to discuss [...] microalbuminuria, with long-term current use of insulin ([facility]) BS elevated and A1C 12.9. Not taking [...] Continue relafen and flexeril. documented in this encounterSaint Francis Hospital & Health [id number] Miscellaneous Notes* Telephone Encounter - Sue Chow CMA - 05/28/2024 9:08 AM EDT LM to call office to reschedule appt for today. documented in this encounterMer[facility]09-[facility]24 Telephone encounter Note* Telephone Encounter - Sue Chow CMA - 05/28/2024 9:08 AM EDT LM to call office to reschedule appt for today. [facility]09-23-2024 Miscellaneous Notes* Telephone Encounter - Bethanie Patricia CMA - 05/27/2024 10:28 AM EDT Left message for patient to remind them to bring their most current medication list with them to their appointment. documented in this encounterMercy [facility]09-23-2024 Telephone encounter Note* Telephone Encounter - Bethanie Patricia CMA - 05/27/2024 10:28 AM EDT Left message for patient to remind them to bring their most current medication list with them to their appointment. [facility]09-12-2024 Telephone encounter Note* Telephone Encounter - Diaz Dalton MD - 05/16/2024 9:38 PM EDT [facility] [id number] Miscellaneous Notes* Telephone Encounter - Diaz Dalton MD - 05/16/2024 9:38 PM EDT documented in this encounterSaint Francis Hospital & Health [id number] History of Present illness Narrative* Diaz Dalton MD - 05/13/2024 2:50 PM EDTAssociated Problem(s): Type 2 diabetes mellitus with hyperglycemia, with long-term current use of insulin ([facility]) Reports BS improved and due for A1C. Increase mounjaro. Stick to ADA diet and limit carbs. * Diaz Dalton MD - 05/13/2024 2:50 PM EDTAssociated Problem(s): Spondylosis without myelopathy Increased pain and start flexeril. * Diza Dalton MD - 05/13/2024 2:50 PM EDTAssociated Problem(s): Right carpal tunnel syndrome Able to proceed with upcoming surgery at low to 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 risk of complications. DM improved andno CAD or HTN. Cleared by pulmonology. Will have echo tomorrow. Recommend routine PAT. * Diaz Dalton MD - 05/13/2024 2:49 PM EDTAssociated Problem(s): Mild episode of recurrent major depressive disorder (HCC) (CMS/HCC) Mood controlled with medication and continue. * Diaz Dalton MD - 05/13/2024 2:49 PM EDTAssociated Problem(s): JOHN (generalized anxiety disorder) (CMS/HCC) Mood controlled with medication and continue. Use ativan PRN. * Diaz Dalton MD - 05/13/2024 2:49 PM EDTAssociated Problem(s): Edema Edema controlled with lasix and use PRN. Elevate legs PRN. * Diaz Dalton MD - 05/13/2024 2:49 PM EDTAssociated Problem(s): Chronic hypoxic respiratory failure (CMS/HCC) On home oxygen and follow with pulmonology. * Diaz Dalton MD - 05/13/2024 2:00 PM EDT Images from the original note [...] out or overwhelmed. Not as nervous or worryas much. Not as galicia or irritable. Edema [...] Addressed This Visit JOHN (generalized anxiety disorder) ([facility]/HCC) Mood controlled with medication and continue. Use [...] andno CAD or HTN. Cleared by pulmonology. Will have echo tomorrow. Recommend routine PAT. Type 2 diabetes mellitus with hyperglycemia, with long-term current use of insulin (CMS/HCC) - Primary Reports BS improved and due for A1C. Increase mounjaro. Stick to ADA diet and limit carbs. Relevant Medications Tirzepatide (Mounjaro) 5 MG/0.5ML solution pen-injector Other Relevant Orders Hemoglobin A1c Chronic hypoxic respiratory failure ([facility]/HCC) On home oxygen and follow with pulmonology. documented in this encounterSaint Francis Hospital & Health [id number] Miscellaneous Notes* Telephone Encounter - MOIZ Andrew - 05/07/2024 8:56 AM EDT Oxygen order placed and faxed to [facility] with supportive documentation. documented in this encounterMer[facility]09-03-2024 Telephone encounter Note* Telephone Encounter - MOIZ Andrew - 05/07/2024 8:56 AM EDT Oxygen order placed and faxed to [facility] with supportive documentation. [facility]08-21-2024 Telephone encounter Note* Telephone Encounter - Heaven November - 04/24/2024 2:42 PM EDT LM for patient to call our office back. [facility] [id number] History of Present illness Narrative* Dayanara Wheatley, LOAD TESTER - 04/24/2024 1:50 PM EDT Reason for Appointment: Patient ID: Carissa Santos [...] mg, Oral, Daily Continuous Blood Gluc Sensor ([place] Crystal 14 Day Sensor) [facility] [place] 1 SENSOR to back OF UPPER [...] UNITS DAILY* insulin pen needle (Droplet Pen [place]) 32G x 4 mm misc USE ONE [...] to allergen 10/01/2009 JOHN (generalized anxiety disorder) ([facility]) 10/01/2009 Carpal tunnel syndrome of left wrist 04/06/2023 Contracture, unspecified ankle 04/06/2023 Edema 04/06/2023 Equinus deformity of left foot 04/06/2023 Gastroesophageal reflux disease 04/06/2023 Genital warts 04/06/2023 Hot flashes due to menopause 04/06/2023 Type 2 diabetes mellitus with microalbuminuria, with long-term current use of insulin ([facility]) 04/06/2023 Internal derangement of left shoulder 04/06/2023 Irritable bowel syndrome with diarrhea 04/06/2023 Mild developmental delay 09/29/2021 Migraine without aura and without status migrainosus, not intractable ([facility]) 04/06/2023 Mild episode of recurrent major depressive disorder (HCC) ([facility]) 04/06/2023 Morbid obesity ([facility]) 11/21/2022 Type 2 diabetes mellitus with polyneuropathy ([facility]) 06/10/2021 Obstructive sleep apnea syndrome 09/30/2009 Osteoarthritis of knee 04/06/2023 Overactive bladder 04/06/2023 Panic disorder without agoraphobia ([facility]) 11/12/2009 Dyslipidemia ([facility]) 04/22/2010 Spondylosis without myelopathy 08/10/2010 Cavitary lesion of lung 08/10/2023 Hypoxia 01/04/2024 Obesity hypoventilation syndrome ([facility]/HCC) 01/04/2024 Elevated blood-pressure reading without diagnosis of hypertension 01/04/2024 Right carpal tunnel syndrome 01/04/2024 Type 2 diabetes mellitus with hyperglycemia, with long-term current use of insulin ([facility]) 02/12/2024 Chronic hypoxic respiratory failure ([facility]) 02/19/2024 Moderate persistent asthma without complication ([facility]) 02/19/2024 Resolved Ambulatory Problems Diagnosis Date Noted Acute kidney injury (DREW) with acute tubular necrosis (ATN) ([facility]) 09/30/2021 Acute pain of left shoulder 04/06/2023 Shoulder joint pain 04/06/2021 Convulsions in the 09/30/2009 Cubital tunnel syndrome on left 11/04/2022 Fecal incontinence 06/22/2016 High anion gap metabolic acidosis 09/30/2021 Hyperglycemia 03/01/2019 Mild intellectual disability ([facility]) 09/30/2009 Other chronic pain 04/06/2023 Pneumonia due to infectious organism 09/29/2021 Poorly controlled diabetes mellitus ([facility]) 08/10/2015 Normal gynecologic examination 06/09/2015 Missed period 04/06/2023 DKA, type 1, not at goal ([facility]) 09/27/2021 Type 2 diabetes mellitus ([facility]) 09/30/2009 Other chest pain 08/10/2023 Past Medical History: Diagnosis Date Ankle fracture Anxiety and depression ([facility]) At low risk for fall Bilateral leg edema Chest pain, central Chronic left shoulder pain Chronic pain Chronic respiratory failure ([facility]) Epilepsy ([facility]) GERD (gastroesophageal reflux disease) History of being hospitalized History of medical problems Hyperlipidemia ([facility]) Insomnia, persistent MDD (major depressive disorder), recurrent episode, mild (HCC) ([facility]) Morbid obesity with BMI of 40.0-44.9, adult ([facility]) Nocturnal hypoxemia Nonsmoker OAB (overactive bladder) Obesity JOSE M (obstructive sleep apnea) Postoperative urinary retention Primary osteoarthritis of left knee Seasonal allergies Type 2 diabetes mellitus with diabetic polyneuropathy, with long-term current use of insulin ([facility]) Type 2 diabetes mellitus without complication ([facility]) Vitamin D deficiency HISTORY PAST MEDICAL HISTORY SOCIAL HISTORY Past Medical History: Diagnosis Date Ankle fracture Anxiety and depression ([facility]) At low risk for fall Bilateral leg edema Chest pain, central Chronic left shoulder pain Chronic pain Chronic respiratory failure ([facility]) Dyslipidemia ([facility] Epilepsy ([facility]) Childhood epilepsy JOHN (generalized anxiety disorder) ([facility]) Genital warts GERD (gastroesophageal reflux disease) History of being hospitalized pneumonia, diabetes, infection [10/29/21-11/05/21] History of medical problems mild mental retardation Hyperlipidemia ([facility]) Insomnia, persistent Irritable bowel syndrome with diarrhea MDD (major depressive disorder), recurrent episode, mild ([facility]) ([facility]) Migraine without aura and without status migrainosus, not intractable ([facility]) Morbid obesity with BMI of 40.0-44.9, adult ([facility]) Nocturnal hypoxemia Nonsmoker OAB (overactive bladder) Obesity JOSE M (obstructive sleep apnea) Postoperative urinary retention Primary osteoarthritis of left knee Seasonal allergies Type 2 diabetes mellitus with diabetic polyneuropathy, with long-term current use of insulin ([facility]) Type 2 diabetes mellitus with hyperglycemia, with long-term current use of insulin ([facility]) Type 2 diabetes mellitus without complication ([facility]) Vitamin D deficiency Social History Tobacco Use [...] nursing note reviewed. Exam conducted with a microcomputer support specialist present. Vitals: Estimated body mass index is [...] of: Feliz Benz DO documented in this encounterSaint Francis Hospital & Health [id number] Telephone encounter Note* Telephone Encounter - UYEN Gunter - 04/24/2024 12:11 PM EDT Once she is cleared we can reschedule her surgery, please let patient know thanks [facility] Phone: [phone] 580-698708-21-2024 Telephone encounter Note* Telephone Encounter - Heaven November - 04/24/2024 11:48 AM EDT Patient called back asking if she should reschedule surgery at this time or wait until after cardiac clearance, please advise. Call back # [phone] [place] [id number] Telephone encounter Note* Telephone Encounter - UYEN Gunter - 04/24/2024 11:13 AM EDT Notified [facility] and cx sx [place] [id number] Telephone encounter Note* Telephone Encounter - Kristan Chan - 04/22/2024 9:56 AM EDT Patient would like to cancel her surgery. Appointment for cardiac namrata isn't till May 14. [place] [id number] Telephone encounter Note* Telephone Encounter - UYEN Gunter - 04/18/2024 4:06 PM EDT LM with Dr Dalton office that patient needs Echo and clearance from PCP Also spoke with patient to contact PCP to follow up for clearance [place] [id number] Telephone encounter Note* Telephone Encounter - UYEN Escudero - 04/18/2024 3:52 PM EDT Jacqueline from [facility] called regarding patient carissa santos 1980. she said looked at her Pat and said she needs to have an echo, that she needs evaluation for pulmonary hypertension. Please advise [facility] [id number] Miscellaneous Notes* Telephone Encounter - Nina Bojorquez RN - 04/15/2024 6:26 PM EDT Images from the original note were not included. Last OV 07/13/2023 Message to scheduling for appt BMP 12/23/2023 documented in this encounterMer[facility]08-12-2024 Telephone encounter Note* Telephone Encounter - Nina Bojorquez RN - 04/15/2024 6:26 PM EDT Images from the original note were not included. Last OV 07/13/2023 Message to scheduling for appt BMP 12/23/2023 [facility]08-07-2024 Miscellaneous Notes* Telephone Encounter - Raya Hensley - 04/10/2024 12:37 PM EDT 04/09 Order received Scheduled [facility]G at [facility] on 08/06/24 Scheduled PAP at [facility] on 11/20/24 Confirmation mailed Comp Order and 04/09/24 Benito Germain Epic Notes With TCO2 Start without oxygen, uses 2-3L/min with exertion and sleep If patient has hypoxemia awake prior to sleep please add oxygen, add per protocol in sleep otherwise documented in this encounterMercy Health [facility]08-07-2024 Telephone encounter Note* Telephone Encounter - Raya Hensley - 04/10/2024 12:37 PM EDT 04/09 Order received Scheduled PSG at [facility] on 08/06/24 Scheduled PAP at [facility] on 11/20/24 Confirmation mailed Comp Order and 04/09/24 Benito Germain Epic Notes With TCO2 Start without oxygen, uses 2-3L/min with exertion and sleep If patient has hypoxemia awake prior to sleep please add oxygen, add per protocol in sleep otherwise [facility]08-06-2024 History of Present illness Narrative* Smitha Germain MD - 04/09/2024 11:00 AM EDT CHIEF COMPLAINT: Carissa Santos is a 43 y.o. female who presents to [facility] in follow-up for suspected [...] sleep. She reports using 3 L/min at nightand 2-3 L/min during the day with exertion. [...] few months . Her PCP had prescribed thisfor sleep in the past [place] Sleepiness Scale: Sitting and Reading: Never Watching [...] hyperglycemia, with long-term current use of insulin ([facility]) Mild developmental delay Obstructive sleep apnea syndrome Severe obesity (BMI >= 40) ([facility]) Hyperlipidemia associated with type 2 diabetes mellitus ([facility]) Abnormal ECG during exercise stress test Mediastinal lymphadenopathy Acute cystitis without hematuria Pulmonary nodule Dyspnea on exertion Moderate persistent asthma without complication Chronic hypoxic respiratory failure ([facility]) Past Medical History: Diagnosis Date Anxiety Deep vein thrombosis ([facility]) Dental disease no teeth Depression Diabetes mellitus type I ([facility]) Elevated cholesterol GERD (gastroesophageal reflux disease) Hyperlipidemia Hypertension Lymphadenopathy 2023 MR (mental retardation) Obesity Panic disorder Visual impairment Past Surgical History: Procedure Laterality Date CHOLECYSTECTOMY COLONOSCOPY 2021 ENDOBRONCHIAL ULTRASOUND BRONCHOSCOPY N/A 11/22/2023 Performed by Libby Finley MD at [facility] TONSILLECTOMY TUBAL LIGATION Bilateral 2018 ALLERGIES: [...] Units total) by mouth in the morning. ymydfqohvkm-nephduxpb-cogtsfmb (TRELEGY ELLIPTA) 200-62.5-25 mcg blister with device [...] apnea), suspected 2. Chronic hypoxic respiratory failure ([facility]) 3. Severe obesity (BMI >= 40) ([facility]) Carissa Santos is a 43 y.o. female with medical problems including as above, presenting in follow up for suspected sleep apnea. She is snoring and snorting and gasping awake. She currently is using supplemental oxygen 3 L/ minute overnight and 2-3 L/min with exertion. Discussed with the patientthat I will order a baseline polysomnogram to be started without supplemental oxygen however if sheis hypoxic awake at the beginning of the study I would like the supplemental oxygen added back, otherwise oxygen will be added back as per protocol in sleep. Add TCO2 monitoring given BMI 43, at riskfor obesity hypoventilation. CPAP titration with TCO2 ordered to be completed if she meets criteriaon the PSG CPAP compliance was discussed, I [...] acknowledged understanding and agreement. SMITHA GERMAIN MD [facility] [address] [place] [id number] documented in this encounterMercy Health [facility] Hospital08-06-2024 Instructions* Patient Instructions* Smitha Germain MD - 04/09/2024 11:00 AM EDT Thank you for visiting [facility] Sleep Medicine office. The process of completing a sleep study hasmany steps. We have detailed these steps below to help keep you informed of what to expect. The scheduling, prior authorization, and registration process: Please call option #1 to schedule your sleep study. Your sleep medicine specialist places an electronic order which is sent to [facility] sleep lab. This order is then reviewed by the lab staff and a request for approval is sent to your insurance company. If you would like to know the estimated cost of your study, you can call [phone] for general pricing information (note that you will need the following procedure codes allow them to estimate thecost: Polysomnogram (PSG), in lab diagnostic study without CPAP = 96071 PAP titration, in lab with CPAP for treatment = [phone] Every study request is reviewed in our sleep prior authorization department. Some sleep studies require prior authorization and some do not (only require that the provider document the need for the study). Some sleep study orders may need to be changed based on insurance coverage. (ie in lab to home study). Please confirm with your insurance that all [facility] sleep labs are in network with your [...] be provided by the sleep lab (pajamas, toiletries,medications, etc). Prior to the sleep study you will be asked to choose a medical equipment supplier (DME).The DME will be providing the pap machine if ordered by the provider. What happens after my sleep study? Within 24-48 hours the data from your sleep study is sent to a refrigeration technician to be reviewed and scored. The report from the refrigeration technician is then sent to the sleep medicine physician and within 7-10 days the study will be formally interpreted. Once the study is completed, there will be contact from our office (through GeoGRAFIhart, phone, or a letter) about next steps (ie treatment for sleep apnea, office appointment, cpap machine orders). If a cpap machine has been ordered and you do not hear from the equipment company within 30 days ofyour study, please call our office [phone]. FYI: Some insurance companies have strict guidelines regarding the timeline for this process. If sleep studies are not completed within 6-12 months of the office visit insurance may require another office visit. Also if cpap set up is not done within a year of the initial sleep study insurance may require another sleep study. Thank you, [facility] Sleep Medicine Department REQUIREMENTS FOR PAP (CPAP/BPAP/ASV) [...] by your insurance company. documented in this encounterMercy Health [facility] Hospital07-18-2024 History of Present illness Narrative* Stella Reyes RN - 03/21/2024 3:56 PM EDT Patient called nurse line and requested Trelegy script to be sent to [facility]. Script sent. documented in this encounterMercy Health Perry[facility] Hospital07-15-2024 History of Present illness Narrative* Lindsay Arrieta DO - 03/18/2024 3:00 PM EDT [facility] Progress Note Patient [...] or calculate RVSP. Will reach out to [facility] to determine what portable tanks she has, if she is eligible for POCor smaller tanks. Conserver device testing Patient very [...] Trelegy 100 samples. She has been taking forabout 2 weeks. She is using 2L continuous [...] Meds Medications Reviewed. Dr. Lindsay Arrieta DO. [facility] Office: [phone] documented in this encounterMercy Health Perry[facility] Hospital07-09-2024 Miscellaneous Notes* Telephone Encounter - Michelle Oseguera - 03/12/2024 3:09 PM EDT [facility] Dr GARLAND already gone for the day office canceled pt arrival and marked patient as a NO SHOW per PN. documented in this encounterMercy Health Perry[facility] Hospital07-09-2024 Telephone encounter Note* Telephone Encounter - Michelle Oseguera - 03/12/2024 3:09 PM EDT [facility] app[facility] time and Dr GARLAND already gone for the day office canceled pt arrival and marked patient as a NO SHOW per PN. [facility]07-09-2024 Miscellaneous Notes* Telephone Encounter - Maria C Bridges RN - 03/12/2024 3:08 PM EDT Patient signed on at 258 pm for 2 pm mychart visit. Spoke with patient. Will need to reschedule appt. Is there a day she can be added on? * Telephone Encounter - Lindsay Arrieta DO - 03/12/2024 3:08 PM EDT Can do video visit on Monday at 3pm please. * Telephone Encounter - Maria C Bridges RN - 03/12/2024 3:08 PM EDT Patient agreeable and scheduled documented in this encounterMercy Health [facility] Hospital07-09-2024 Telephone encounter Note* Telephone Encounter - Maria C Bridges RN - 03/12/2024 3:08 PM EDT Patient signed on at 258 pm for 2 pm mychart visit. Spoke with patient. Will need to reschedule appt. Is there a day she can be added on? [facility] Phone: 1(548) 562-268907-09-2024 Telephone encounter Note* Telephone Encounter - Lindsay Arrieta DO - 03/12/2024 3:08 PM EDT Can do video visit on Monday at 3pm please. [facility] [employer] [id number] Telephone encounter Note* Telephone Encounter - Maria C Bridges RN - 03/12/2024 3:08 PM EDT Patient agreeable and scheduled [facility]06-24-2024 Miscellaneous Notes* Telephone Encounter - Michelle Oseguera - 02/26/2024 9:44 AM EDT Gosia called office to confirm patient appt date and times. Office confirmed and gave Gosia central scheduling number for sleep study purposes. documented in this encounterMercy Health Perry[facility] Hospital06-24-2024 Telephone encounter Note* Telephone Encounter - Michelle Oseguera - 02/26/2024 9:44 AM EDT Gosia called office to confirm patient appt date and times. Office confirmed and gave Gosia central scheduling number for sleep study purposes. [facility]06-06-[facility] History of Present illness Narrative* Lindsay Arrieta, DO - 02/08/2024 9:00 AM EDT [facility] Progress Note Patient - [...] contrast for six-month follow-up after PET-CT in Decemberto re-evaluate her mediastinal adenopathy. Further recommendations pending [...] and last seen in November. She had origina lly been referred to us for her shortness of breath with exertion as well as abnormal chest imaging. She had PET-CT in November which revealed her right upper lobe pulmonary nodule which has been stablefor more than 2 years showing stability but [...] function testing. She was recently hospitalized at [facility] in December. She just checked her oxygen [...] the home she will drop into the 80 s. Her shortness of breath is recovered quickly within a couple of minutes of rest. No new lower extremity swelling, sensation of a wellness. Echocardiogram last year did not reveal impaired ejectionfraction. RVSP was not able to be calculated. [...] No tremors Meds Medications Reviewed. Lab Results [facility] [address] [place] [address] Cytology Consultation Patient Name:CARISSA SANTOS:1980 (Age: 43)Gender:FTaken:11/22/2023eported:11/23/2023 17:47Physician(s):Libby Finley MD ([phone])Copy To: Rec. #:[id number]: #[id number] Final Cytologic Diagnosis 1. 4R node, endobronchial [...] Stable cardia mediastinal silhouette. No focal opacity, effusionor pneumothorax. 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 Contrast evaluation of the face/brain due to differences in positioning between the PET and CT acquisitions with misregistration artifact. No definitive suspicious hypermetabolic cervical lymph nodesare identified. Low Dose CT Images: No other acute or significant finding. CHEST: A 1.2 cm noncalcified right upper lobe nodule is redemonstrated. No significant residual tracer activity (max SUV 0.8). Mildly hypermetabolic right paratracheal lymph node (max SUV 2.8). A borderline0.9 cm right axillary lymph node with corresponding [...] a slightly enlarged pretracheal lymph node, indeterminate forinfectious/inflammatory versus neoplastic etiology. Consider ongoing surveillance or potential FNA/endobronchial ultrasound. 3. Additional right axillary lymph node with more mild FDG uptake and equivocal cortical thickening, favored reactive though likely also warranting continued follow-up . 4. Presumed left trochanteric bursitis and/or tendinitis 5. Additional findings/limitations as above Dr. Lindsay Arrieta DO. [facility] Office: [phone] documented in this encounterProMedica Bay [facility] Hospital8digits [id number] Miscellaneous Notes* Telephone Encounter - Mary Gayle - 01/05/2024 10:40 AM EDT 01/05/2024- this patient called and left a vm, I called back and left a vm. mary documented in this encounterMercy Health [facility] Hospital05-03-2024 Telephone encounter Note* Telephone Encounter - Marymarco antonio Bautista Nalini - 01/05/2024 10:40 AM EDT 01/05/2024- this patient called and left a vm, I called back and left a vm. mary [facility]04-20-[facility] Nurse Note* Lindsey Bryant RN - 12/23/2023 3:34 PM EDT AVS reviewed with the patient and signed. All questions answered and concerns addressed. Meds reviewed that need to be picked up from the pharmacy and administration times. The need to make a follow up appt within one week with PCP and go to scheduled pulmonology reviewed. All belongings returned. IV removed and tele D/C. Waiting for Patient's ride home. [facility]04-20-[facility] Nurse Note* Lindsey Bryant RN - 12/23/2023 3:34 PM EDT AVS reviewed with the patient and signed. All questions answered and concerns addressed. Meds reviewed that need to be picked up from the pharmacy and administration times. The need to make a follow up appt within one week with PCP and go to scheduled pulmonology reviewed. All belongings returned. IV removed and tele D/C. Waiting for Patient's ride home. documented in this encounterMercy Health [facility]sburg Hospital04-20-2024 Plan of care note * Plan of Care - Lindsey Bryant RN - 12/23/2023 8:35 AM EDT Problem: Safety Goal: Patient will be injury free during hospitalization Description: INTERVENTIONS: 1. Assess patient's risk for falls and implement fall prevention plan of care per policy 2. Provide and maintain a safe environment 3. Proper use of double Identifiers 4. Medication administration using the 5 rights 5. Hand hygiene 6. Specimens are labeled at the bedside 7. Instruct patient/ patient tax 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 about use of safety devices 8. Include patient/ patient tax 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 in decisions related to safety Outcome: Progressing Note: Evaluation of progress towards goal: Pt is free of injury, safe environment provided and maintained, medication administered as ordered, hand hygiene completed. [facility] [id number] Miscellaneous Notes* Plan of Care - Lindsey Bryant RN - 12/23/2023 8:35 AM EDT Problem: Safety Goal: Patient will be injury free during hospitalization Description: INTERVENTIONS: 1. Assess patient's risk for falls and implement fall prevention plan of care per policy 2. Provide and maintain a safe environment 3. Proper use of double Identifiers 4. Medication administration using the 5 rights 5. Hand hygiene 6. Specimens are labeled at the bedside 7. Instruct patient/ patient tax 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 about use of safety devices 8. Include patient/ patient tax 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 in decisions related to safety Outcome: Progressing Note: Evaluation of progress towards goal: Pt is free of injury, safe environment provided and maintained, medication administered as ordered, hand hygiene completed. * Plan of Care - Archana Hernandez RN - 12/22/2023 8:41 PM EDT Problem: Pain Goal: Patient goal is pain score less than 4, able to rest, and participant in treatment plan as appropriate Description: INTERVENTIONS: 1. Encourage patient or legal tax 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 to report early pain and ask [...] per policy 9. Teach patient or legal tax 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 interventions for comforting Outcome: Progressing Note: [...] at the bedside 7. Instruct patient/ patient tax 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 about use of safety devices 8. Include patient/ patient tax 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 in decisions related to safety Outcome: [...] hygiene technique 7. Identify and instruct patient/patient tax 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 in use of appropriate isolation precautionsfor identified infection/symptoms 8. Provide and discuss with patient/patient tax 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 on educational MDRO sheet 9. Encourage and monitor nutritional status daily and consult subscription clerk if indicated 10. Implement neutropenic guidelines as needed 11. Review exposure to history of communicable disease and recent travel history on admission 12. Encourage annual influenza vaccine 13. Encourage pneumonia vaccine Outcome: Progressing Note: Evaluation of progress towards goal: Problem: Knowledge Deficit Goal: Patient/patient tax 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 demonstrates understanding of disease process, treatment plan,medications, and discharge instructions Description: INTERVENTIONS 1. Complete [...] goal: Multidisciplinary teams working together with patient toachieve discharge goals. * Discharge Planning Note - Stacey Smith RN - 12/22/2023 11:04 AM EDT DISCHARGE PLANNING NOTE DTR Carissa Santos SOB (shortness of breath) [R06.02] Hyperglycemia [R73.9] Acute cystitis without hematuria [N30.00] Per Rosemary Zurita CNP request: OP consult to Pulmonology for the following: . Outpatient visit to Pulmonary to see if PFT warranted . Patient is newly on home oxygen . [facility] - Stacey mSith RN 12/22/23 11:04 AM * Discharge Planning Note - DOC Taylor - 12/22/2023 10:49 AM EDT Images from the original note [...] oxygen. This was discussed with pt who confirmedthis. She asked insurance underwriter to try another DME. Staff updated on oxygen barrier. [facility] and also called: [phone] and spoke to Talisha who was able [...] oxygen today. DOC Taylor, 12/22/2023, 10:51 AM * Plan of Care - Jania Sierra RN - 12/22/2023 8:37 AM EDT Problem: Pain Goal: Patient goal is pain score less than 4, able to rest, and participant in treatment plan as appropriate Description: INTERVENTIONS: 1. Encourage patient or legal tax 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 to report early pain and ask [...] per policy 9. Teach patient or legal tax 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 interventions for comforting Outcome: Progressing Note: [...] at the bedside 7. Instruct patient/ patient tax 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 about use of safety devices 8. Include patient/ patient tax 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 in decisions related to safety Outcome: [...] monitor and treat blood sugar as needed * Plan of Care - Clarita Morataya RN - 12/22/2023 4:33 AM EDT Problem: Safety Goal: Patient will be injury free during hospitalization Description: INTERVENTIONS: 1. Assess patient's risk for falls and implement fall prevention plan of care per policy 2. Provide and maintain a safe environment 3. Proper use of double Identifiers 4. Medication administration using the 5 rights 5. Hand hygiene 6. Specimens are labeled at the bedside 7. Instruct patient/ patient tax 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 about use of safety devices 8. Include patient/ patient tax 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 in decisions related to safety Outcome: Progressing Note: Evaluation of progress towards goal: Able to ambulate In and Out of the bed independently. Noinjury/ trauma/ fall. Hourly rounds completed. Problem: Infection [...] hygiene technique 7. Identify and instruct patient/patient tax 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 in use of appropriate isolation precautionsfor identified infection/symptoms 8. Provide and discuss with patient/patient tax 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 on educational MDRO sheet 9. Encourage and monitor nutritional status daily and consult subscription clerk if indicated 10. Implement neutropenic guidelines as [...] levels around 300mg/dl, insulin given PRN given. * Discharge Planning Note - DOC Taylor - 12/21/2023 5:08 PM EDT Images from the original note [...] on disability, unemployed and supports her financially. Interior Systems Carpenter reviewed goal for safe dc, discussed community [...] difficulty affording home medications; preferred pharmacy [facility] [place]. Pt prefers to make own appt, Informed insurance underwriter will f/u tomorrow to assist with finalizing home oxygen referral. She did not have any other questions or concerns at this time. 12/21/23 9806 Discharge Disposition Discharge Disposition Home Durable Medical Equipment (Qualified for oxygen with activity: Requests referral sent to [facility] She has had oxygen in the past from [facility] is [facility] County Information County of Residence [place] Patient Information Primary Caregiver Self Support System Immediate family Stressors Type of stressor (Denies) Income Information Income Information Unemployed ( provides income. She is not on disability) Referral To Community Resources Denies needs Discharge Planning Living Arrangements Spouse/significant other Support Systems Spouse/significant other;Parent;Family members;Friends;manager restaurant/licensed master social worker Assistance Needed Spoke to pt who agrees to home oxygen, has had in the past with [facility]ed to [facility] to start [facility] referral and will need testing and face to face note when completed. Also informed pt would need to call the financial department to discuss outstanding balance owed before the referral can be completed. The pt provided with contact info and started to call when insurance underwriter left room. Type of Residence Private residence [...] home oxygen) Home Durable Medical Equipment Name: [employer] [facility] Home Durable Medical Equipment Home Durable Medical [...] goal: In progress: Home with oxygen tomorrow. * Discharge Planning Note - Paloma Bojorquez - 12/21/2023 3:16 PM EDT DISCHARGE PLANNING NOTE Referral sent to [employer] [place] [facility], [facility] [place] ([place]- P# ; F# ) ([place]- P# ; F# ) ([place]- P# ; F# ) ([place]- P# ; F# ) ([place]- P# ; F# ) ([place]- P# ; F# ) ([place]- P# [phone] ; F# [phone]) * Plan of Care - Arlene Smallwood RN - 12/21/2023 12:09 PM EDT Problem: Knowledge Deficit Goal: Patient/patient tax 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 demonstrates understanding of disease process, treatment plan,medications, and discharge instructions Description: INTERVENTIONS 1. Complete [...] is expected to discharge [facility] in care of staff, pt qualifies to be discharged on home O2 and is awaiting that to be arranged. * Plan of Care - Anh Dang RN - 12/21/2023 5:02 AM EDT Problem: Safety Goal: Patient will be injury free during hospitalization Description: INTERVENTIONS: 1. Assess patient's risk for falls and implement fall prevention plan of care per policy 2. Provide and maintain a safe environment 3. Proper use of double Identifiers 4. Medication administration using the 5 rights 5. Hand hygiene 6. Specimens are labeled at the bedside 7. Instruct patient/ patient tax 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 about use of safety devices 8. Include patient/ patient tax 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 in decisions related to safety Outcome: Progressing Note: Evaluation of progress towards goal: Pt remains free from falls or accidental injury during stay. Fall prevention measures in place. Hourly rounding per RN and NA maintained. Problem: Knowledge Deficit Goal: Patient/patient tax 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 demonstrates understanding of disease process, treatment plan,medications, and discharge instructions Description: INTERVENTIONS 1. Complete learning assessment and assess knowledge base 2. Provide teaching at level of understanding 3. Provide teaching via preferred learning method(s) Outcome: Progressing Note: Evaluation of progress towards goal: Patient has intermittent confusion. Answered questions when asked. Reorientated as needed. Continue to monitor and assess for appropiateness to involve patient in care. documented in this encounterProMedica Bay [facility] HospitalWashington [facility]04-19-2024 Plan of care note * Plan of Care - Archana Hernandez RN - 12/22/2023 8:41 PM EDT Problem: Pain Goal: Patient goal is pain score less than 4, able to rest, and participant in treatment plan as appropriate Description: INTERVENTIONS: 1. Encourage patient or legal tax 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 to report early pain and ask [...] per policy 9. Teach patient or legal tax 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 interventions for comforting Outcome: Progressing Note: [...] at the bedside 7. Instruct patient/ patient tax 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 about use of safety devices 8. Include patient/ patient tax 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 in decisions related to safety Outcome: [...] hygiene technique 7. Identify and instruct patient/patient tax 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 in use of appropriate isolation precautionsfor identified infection/symptoms 8. Provide and discuss with patient/patient tax 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 on educational MDRO sheet 9. Encourage and monitor nutritional status daily and consult subscription clerk if indicated 10. Implement neutropenic guidelines as needed 11. Review exposure to history of communicable disease and recent travel history on admission 12. Encourage annual influenza vaccine 13. Encourage pneumonia vaccine Outcome: Progressing Note: Evaluation of progress towards goal: Problem: Knowledge Deficit Goal: Patient/patient tax 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 demonstrates understanding of disease process, treatment plan,medications, and discharge instructions Description: INTERVENTIONS 1. Complete [...] goal: Multidisciplinary teams working together with patient toachieve discharge goals. [facility] [id number] Hospital Discharge instructions* Discharge Instr - Other Orders* DOC Taylor - 12/22/2023 6:09 PM EDT Please call [facility] for update on oxygen. [phone]. Unable to arrange with [facility] due to outstanding bill. Your RT testing was good showing you did not need it today: 12/22/23 1529 Home Oxygen Qualification - Resting Method *Complete within 48 Hrs of Discharge SpO2 On Room Air At Rest 93 % Home Oxygen Qualification - Exercise/Ambulation Method SpO2 On Room Air With Exercise/Ambulation 91 % * Attachments The following attachments cannot be sent through Care Everywhere. * Urinary Tract Infection Discharge Instructions, Adult ([place]) * Type 2 Diabetes Discharge Instructions ([place]) * Sleep Apnea Discharge Instructions ([place]) documented in this encounterMercy Health [facility] Hospital04-19-2024 History of Present illness Narrative* Tracy Whitten RCP - 12/22/2023 3:41 PM EDT 12/22/23 1529 Home Oxygen Qualification - Resting Method *Complete within 48 Hrs of Discharge SpO2 On Room Air At Rest 93 % Home Oxygen Qualification - Exercise/Ambulation Method SpO2 On Room Air With Exercise/Ambulation 91 % * Moon Orellana RCP - 12/21/2023 10:40 AM EDTSummary: Home 02 evalution 12/21/23 1035 Home Oxygen Qualification - Resting Method *Complete within 48 Hrs of Discharge SpO2 On Room Air At Rest 90 % Home Oxygen Qualification - Exercise/Ambulation Method SpO2 On Room Air With Exercise/Ambulation 88 % Amount Of O2 Applied During Exercise/Ambulation To Keep SpO2 >88% 2 L/min SpO2 On Applied O2 With Exercise/Ambulation 94 % documented in this encounterMercy Health [facility]04-19-2024 Progress note* Discharge Planning Note - Stacey Smith RN - 12/22/2023 11:04 AM EDT DISCHARGE PLANNING NOTE DTR Carissa Santos SOB (shortness of breath) [R06.02] Hyperglycemia [R73.9] Acute cystitis without hematuria [N30.00] Per Rosemary Zurita CNP request: OP consult to Pulmonology for the following: . Outpatient visit to Pulmonary to see if PFT warranted . Patient is newly on home oxygen . [facility]. - Stacey Smith RN 12/22/23 11:04 AM [facility]04-19-2024 Progress note* Discharge Planning Note - DOC Taylor - 12/22/2023 10:49 AM EDT Images from the original note [...] oxygen. This was discussed with pt who confirmedthis. She asked insurance underwriter to try another DME. Staff updated on oxygen barrier. Referral sent to [facility] on carepot and also called: [phone] and spoke to Talisha who was able to confirm referral was received. It could take an hour to process. Sticky note updated for staff to call with update. DOC Taylor, 12/22/2023, 3:23 PM Care Navigation will continue to follow. Services Requested: Services Requested Discharge Disposition: Home with self care, Home Durable Medical Equipment (Will need home oxygen) Home Durable Medical Equipment Name: [facility] Home Durable Medical Equipment Home Durable [...] oxygen today. DOC Taylor, 12/22/2023, 10:51 AM [employer] [id number] Hospital course Narrative* Ezequiel Graff MD - 12/22/2023 10:44 AM EDT Images from the original note were not included. [employer] INTER[facility]ICINE Hospital Medicine Discharge Summary Patient: Carissa Santos Date of : 1980 Room: 215/01 Encounter date: 12/22/23 DATE OF ADMISSION: 12/20/2023 DATE OF DISCHARGE:12/22/2023 DISCHARGE DIAGNOSES Principal Problem: Type 2 diabetes mellitus with hyperglycemia, with long-term current use of insulin ([facility]) Active Problems: Hyperglycemia Obstructive sleep apnea syndrome Severe obesity (BMI >= 40) ([facility]) Hyperlipidemia associated with type 2 diabetes mellitus ([facility]) Acute cystitis without hematuria CONSULTANTS None PCP: [...] to the bathroom makes her short of breath.She recovers with rest. Denies any chest pain. No fever or chills. No cough. No dizziness or lightheadedness. No nausea, vomiting or diaphoresis. Denies history of asthma or copd. She does not smoke.Patient has history of hypertension high cholesterol diabetes. [...] >500. I added on ketones. Bicarb is normaland normal anion gap. She is not vomiting or ill appearing. She is agreeable to admission to get her sugar under control. I updated her on her other negative test results. Added on ketones. Urine dipshows nitrites and glucose. Sent for culture and [...] as well as outpatient PFT for further evaluationof hypoxia. Patient did qualify for home oxygen [...] and patient oxygen saturation increased to 94%. [id number] evaluation was completed today. Home O2 evaluation noted. Patient will need portable oxygen concentratoras She is mobile in her home in [...] Your Medications These medications were sent to [id number] - [place], [place] - [address] [facility] [address] [facility] [id number] albuterol 90 mcg/actuation inhaler CEPHalexin 500 mg capsule >30 minutes were spent on discharging this patient. Eddie Zurita APRN-LUCIANO, 12/22/2023 10:44 AM [facility] 7AM-7PM: Message rounding MARY JO in [employer] or page through [employer]. 7PM-7AM: Page on-call MARY JO through our [...] noted. EZEQUIEL GRAFF MD documented in this [facility] Plan of care note * Plan of Care - Jania Sierra RN - 12/22/2023 8:37 AM EDT Problem: Pain Goal: Patient goal is pain score less than 4, able to rest, and participant in treatment plan as appropriate Description: INTERVENTIONS: 1. Encourage patient or legal tax 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 to report early pain and ask [...] per policy 9. Teach patient or legal tax 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 interventions for comforting Outcome: Progressing Note: [...] at the bedside 7. Instruct patient/ patient tax 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 about use of safety devices 8. Include patient/ patient tax 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 in decisions related to safety Outcome: [...] monitor and treat blood sugar as needed T [facility]04-19-2024 Plan of care note* Plan of Care - Clarita Morataya RN - 12/22/2023 4:33 AM EDT Problem: Safety Goal: Patient will be injury free during hospitalization Description: INTERVENTIONS: 1. Assess patient's risk for falls and implement fall prevention plan of care per policy 2. Provide and maintain a safe environment 3. Proper use of double Identifiers 4. Medication administration using the 5 rights 5. Hand hygiene 6. Specimens are labeled at the bedside 7. Instruct patient/ patient tax 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 about use of safety devices 8. Include patient/ patient tax 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 in decisions related to safety Outcome: Progressing Note: Evaluation of progress towards goal: Able to ambulate In and Out of the bed independently. Noinjury/ trauma/ fall. Hourly rounds completed. Problem: Infection [...] hygiene technique 7. Identify and instruct patient/patient tax 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 in use of appropriate isolation precautionsfor identified infection/symptoms 8. Provide and discuss with patient/patient tax 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 on educational MDRO sheet 9. Encourage and monitor nutritional status daily and consult subscription clerk if indicated 10. Implement neutropenic guidelines as [...] levels around 300mg/dl, insulin given PRN given. [facility]04-18-2024 Progress note* Discharge Planning Note - DOC Taylor - 12/21/2023 5:08 PM EDT Images from the original note [...] on disability, unemployed and supports her financially. [employer] Carpenter reviewed goal for safe dc, discussed community [...] difficulty affording home medications; preferred pharmacy is [facility] in [place]. Pt prefers to make own appt, Informed insurance underwriter will f/u tomorrow to assist with finalizing home oxygen referral. She did not have any other questions or concerns at this time. 12/21/23 [id number] Discharge Disposition Discharge Disposition Home Durable Medical Equipment (Qualified for oxygen with activity: Requests referral sent to [facility] She has had oxygen in the past from [facility] County Information [facility] Patient Information Primary Caregiver Self Support System Immediate family Stressors Type of stressor (Denies) Income Information Income Information Unemployed ( provides income. She is not on disability) Referral To Community Resources Denies needs Discharge Planning Living Arrangements Spouse/significant other Support Systems Spouse/significant other;Parent;Family members;Friends;manager restaurant/licensed master social worker Assistance Needed Spoke to pt who agrees to home oxygen, has had in the past with [facility] informed[facility] Tasked to [facility] to start oxygen referral and will need testing and face to face note when completed. Also informed pt would need to call the financial department to discuss outstanding balance owed before the referral can be completed. The pt provided with contact info and started to call when insurance underwriter left room. Type of Residence Private residence [...] home oxygen) Home Durable Medical Equipment Name: [employer] Home Durable Medical Equipment Home Durable Medical [...] goal: In progress: Home with oxygen tomorrow. [employer] [id number] Progress note* Discharge Planning Note - Paloma Bojorquez - 12/21/2023 3:16 PM EDT DISCHARGE PLANNING NOTE Referral sent to [facility] ([place]- P# ; F# ) ([place]- P# ; F# ) ([place]- P# ; F# ) ([place]- P# ; F# ) ([place]- P# ; F# ) ([place]- P# ; F# ) ([place]- P# [phone] ; F# [phone]) [facility] [id number] Plan of care note* Plan of Care - Arlene Smallwood RN - 12/21/2023 12:09 PM EDT Problem: Knowledge Deficit Goal: Patient/patient tax 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 demonstrates understanding of disease process, treatment plan,medications, and discharge instructions Description: INTERVENTIONS 1. Complete [...] Patient is expected to [facility] in care of staff, pt qualifies to be discharged on home O2 and is awaiting that to be arranged. [facility]04-18-[facility]24 History and physical note* Ezequiel Graff MD - 12/21/2023 9:29 AM EDT Images from the original note were not included. [facility] INTERNAL MEDICINE Hospital Medicine History & Physical Patient: Carissa Santos Date of : 1980 Room: [facility]/ PCP: DIAZ DALTON MD Admission date: 12/20/2023 [...] in mom who reportedly had heart attack. Funmi nichols does relate a remote history of DVT [...] >500. I added on ketones. Bicarb is normaland normal anion gap. She is not vomiting or ill appearing. She is agreeable to admission to get her sugar under control. I updated her on her other negative test results. Added on ketones. Urine dipshows nitrites and glucose. Sent for culture and started on rocephin Chief Complaint Patient presents with Shortness of Breath Allergies: Sulfamethoxazole-trimethoprim Prior to Admission medications Medication Sig Start Date End Date Taking? Authorizing Provider atorvastatin (LIPITOR) 40 mg tablet Take 1 tablet (40 mg total) by mouth in the morning. Yes Not InSystem Ref Prov buPROPion XL (WELLBUTRIN XL) 300 [...] medical history of Anxiety, Deep vein thrombosis ([facility]), Dental disease, Depression, Diabetes mellitus type I ([facility]), Elevated cholesterol, GERD (gastroesophageal reflux disease), Hyperlipidemia, Hypertension, Lymphadenopathy (2023), MR (mental retardation), Obesity, Panic d isorder, and Visual impairment. Past Surgical History: Patient [...] breath (Exertional). Negative for cough, chest tightness andwheezing. Cardiovascular: Negative for chest pain, palpitations and [...] 154.9 cm (5' 0.98 ) Wt 101.4 kg(223 lb 10.2 oz) SpO2 96% BMI 42.28 [...] with long-term current use of insulin ([facility]) Active Problems: Hyperglycemia Obstructive sleep apnea syndrome Severe obesity (BMI >= 40) ([facility]) Hyperlipidemia associated with type 2 diabetes mellitus ([facility]) Acute cystitis without hematuria ASSESSMENT & PLAN Dm 2: Significant hyperglycemia on admission. Continue home Lantus at 15 units daily. Monitor bloodglucose a.c. and HS cover sliding scale insulin. [...] days. Eddie Zurita APRN-LUCIANO, 12/21/2023 9:52 AM [facility] Hospitalists 7AM-7PM: Message rounding MARY JO in [employer] or page through [employer]. 7PM-7AM: Page on-call MARY JO through our [employer] service, . Physician Attestation: I have reviewed [...] above, unless otherwise noted. EZEQUIEL GRAFF MD [employer] [id number] History and physical note* Ezequiel Graff MD - 12/21/2023 9:29 AM EDT Images from the original note were not included. [facility] INTERNAL MEDICINE Hospital Medicine History & Physical Patient: Carissa Santos Date of : 1980 Room: [facility] PCP: DIAZ DALTON MD Admission date: 12/20/2023 [...] in mom who reportedly had heart attack. Funmi nt does relate a remote history of DVT [...] >500. I added on ketones. Bicarb is normaland normal anion gap. She is not vomiting or ill appearing. She is agreeable to admission to get her sugar under control. I updated her on her other negative test results. Added on ketones. Urine dipshows nitrites and glucose. Sent for culture and started on rocephin Chief Complaint Patient presents with Shortness of Breath Allergies: Sulfamethoxazole-trimethoprim Prior to Admission medications Medication Sig Start Date End Date Taking? Authorizing Provider atorvastatin (LIPITOR) 40 mg tablet Take 1 tablet (40 mg total) by mouth in the morning. Yes Not InSystem Ref Prov buPROPion XL (WELLBUTRIN XL) 300 [...] medical history of Anxiety, Deep vein thrombosis ([facility]), Dental disease, Depression, Diabetes mellitus type I ([facility]), Elevated cholesterol, GERD (gastroesophageal reflux disease), Hyperlipidemia, Hypertension, Lymphadenopathy (2023), MR (mental retardation), Obesity, Panic d isorder, and Visual impairment. Past Surgical History: Patient [...] breath (Exertional). Negative for cough, chest tightness andwheezing. Cardiovascular: Negative for chest pain, palpitations and [...] 154.9 cm (5' 0.98 ) Wt 101.4 kg(223 lb 10.2 oz) SpO2 96% BMI 42.28 [...] with long-term current use of insulin ([facility]) Active Problems: Hyperglycemia Obstructive sleep apnea syndrome Severe obesity (BMI >= 40) ([facility]) Hyperlipidemia associated with type 2 diabetes mellitus ([facility]) Acute cystitis without hematuria ASSESSMENT & PLAN Dm 2: Significant hyperglycemia on admission. Continue home Lantus at 15 units daily. Monitor bloodglucose a.c. and HS cover sliding scale insulin. [...] days. Eddie Zurita, FINA-LUCIANO, 12/21/2023 9:52 AM [facility] Hospitalists 7AM-7PM: Message rounding MARY JO in [employer] or page through [employer]. 7PM-7AM: Page on-call MARY JO through our [...] noted. EZEQUIEL GRAFF MD documented in this encounterMer[facility] Plan of care note * Plan of Care - Anh Dang RN - 12/21/2023 5:02 AM EDT Problem: Safety Goal: Patient will be injury free during hospitalization Description: INTERVENTIONS: 1. Assess patient's risk for falls and implement fall prevention plan of care per policy 2. Provide and maintain a safe environment 3. Proper use of double Identifiers 4. Medication administration using the 5 rights 5. Hand hygiene 6. Specimens are labeled at the bedside 7. Instruct patient/ patient tax 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 about use of safety devices 8. Include patient/ patient tax 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 in decisions related to safety Outcome: Progressing Note: Evaluation of progress towards goal: Pt remains free from falls or accidental injury during stay. Fall prevention measures in place. Hourly rounding per RN and NA maintained. Problem: Knowledge Deficit Goal: Patient/patient tax 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 demonstrates understanding of disease process, treatment plan,medications, and discharge instructions Description: INTERVENTIONS 1. Complete learning assessment and assess knowledge base 2. Provide teaching at level of understanding 3. Provide teaching via preferred learning method(s) Outcome: Progressing Note: Evaluation of progress towards goal: Patient has intermittent confusion. Answered questions when asked. Reorientated as needed. Continue to monitor and assess for appropiateness to involve patient in care. [facility]04-17-2024 Physician Emergency department Note* Dayna Doe, CYTOLOGY TEACHER-PUBLIC WEIGHER - 12/20/2023 4:18 PM EDT Images from the original note [...] 11/22/2023 Performed by Libby Finley MD at [facility] TONSILLECTOMY TUBAL LIGATION Bilateral 2018 Travel [...] diagnosis: ACS, pulmonary embolism, CHF, deconditioning [RK] 1845 CBC within normal limits. CMP showed a hyperglycemia with a glucose of 928, pseudo hyponatremia with sodium of 123. Started fluids and will administer insulin. Bedside fingertip confirms glucosegreater than 500. Patient's initial troponin D-dimer also [...] and management services were performed by the MAGISTRATE JUDGE/PA-C under my supervision/collaborationwith my participation. I have reviewed all pertinent clinical information, including history, physical exam and plan. Provider Statement: By electronically signing this emergency patient record, the Emergency Physician/MAGISTRATE JUDGE/PA-C attests that all entries made into the electronic medical record by the scribe prior to the Physician/MAGISTRATE JUDGE/PA-C signature reflect an accurate accounting of the evaluation and care rendered by that Emergency Physic mustapha/MAGISTRATE JUDGE/PA-C. The Emergency Physician/MAGISTRATE JUDGE/PA-C assumes full responsibility for those entries. DUSTIN Mcneill 12/20/23 1623 Anamya Truex 12/20/23 1916 Anamya Truex 12/20/23 1923 DUSTIN Mcneill 12/20/23 1938 [facility]04-17-2024 Emergency department Note* DUSTIN Mcneill - 12/20/2023 4:18 PM EDT Images from the original note [...] 11/22/2023 Performed by Libby Finley MD at [facility] TONSILLECTOMY TUBAL LIGATION Bilateral 2018 Travel [...] and will administer insulin. Bedside fingertip confirms glucosegreater than 500. Patient's initial troponin D-dimer also [...] 1044 Hyperglycemia Acute cystitis without hematuria Hypoxia [facility] Medical Decision Making ----- I, Arturo [...] and management services were performed by the MAGISTRATE JUDGE/PA-C under my supervision/collaborationwith my participation. I have reviewed all pertinent clinical information, including history, physical exam and plan. Provider Statement: By electronically signing this emergency patient record, the Emergency Physician/MAGISTRATE JUDGE/PA-C attests that all entries made into the electronic medical record by the scribe prior to the Physician/MAGISTRATE JUDGE/PA-C signature reflect an accurate accounting of the evaluation and care rendered by that Emergency Physic mustapha/MAGISTRATE JUDGE/PA-C. The Emergency Physician/MAGISTRATE JUDGE/PA-C assumes full responsibility for those entries. Dayna Doe APRN-PUBLIC WEIGHER 12/20/23 1623 Anamya Truex 12/20/23 1916 Anamya Truex 12/20/23 1923 Dayna Doe APRN-PUBLIC WEIGHER 12/20/23 1938 * Bethanie Bradford RN - 12/20/2023 3:56 PM EDT Pt been feeling sob for a week. Did not contact pcp documented in [facility]Mer[facility] Emergency department Triage note* Bethanie Bradford RN - 12/20/2023 3:56 PM EDT Pt been feeling sob for a week. Did not contact pcp [facility]03-26-[facility]24 Miscellaneous Notes* Telephone Encounter - Libby Finley MD - 11/28/2023 10:04 AM EDT The results of the EBUS FNA was discussed with the patient. The FNA from R4 lymph node that is PET avid on the PET scan showed normal lymphocytes with no malignant cells. Flow cytometry demonstrates a mixed population of phenotypically unremarkable T- cells and polyclonal B-cells. Patient questions were answered. documented in this encounterMer[facility] Telephone encounter Note* Telephone Encounter - Libby Finley MD - 11/28/2023 10:04 AM EDT The results of the EBUS FNA was discussed with the patient. The FNA from R4 lymph node that is PET avid on the PET scan showed normal lymphocytes with no malignant cells. Flow cytometry demonstrates a mixed population of phenotypically unremarkable T- cells and polyclonal B-cells. Patient questions were answered. [employer] Work Phone: 1(101) 947-355703-21-2024 Miscellaneous Notes* Telephone Encounter - Heaven November - 04/24/2024 2:42 PM EDT LM for patient to call our office back. * Telephone Encounter - UYEN Gunter - 04/24/2024 12:11 PM EDT Once she is cleared we can reschedule her surgery, please let patient know thanks * Telephone Encounter - Heaven November - 04/24/2024 11:48 AM EDT Patient called back asking if she should reschedule surgery at this time or wait until after cardiac clearance, please advise. Call back # [phone] * Telephone Encounter - UYEN Gunter - 04/24/2024 11:13 AM EDT Notified [facility] and cx sx * Telephone Encounter - Kristan Chan - 04/22/2024 9:56 AM EDT Patient would like to cancel her surgery. Appointment for cardiac namrata isn't till May 14. * Telephone Encounter - UYEN Gunter - 04/18/2024 4:06 PM EDT LM with Dr Dalton office that patient needs Echo and clearance from PCP Also spoke with patient to contact PCP to follow up for clearance * Telephone Encounter - UYEN Escudero - 04/18/2024 3:52 PM EDT [facility] pre [facility] called regarding patient carissa santos 1980. she said looked at her Pat and said she needs to have an echo, that she needs evaluation for pulmonary hypertension. Please advise documented in this encounterSaint Francis Hospital & Health [id number] Instructions* Pre- Procedure Instructions - Katelyn Allred RN - 11/15/2023 9:09 AM EDT Your surgery/procedure is scheduled at [facility] on 11/22/23 at 1:30 pm Arrival Time 11:30 am [facility] Address: [address] [place] [address] Park in P1 Parking lot located on [facility]. Report to the Entrance B. Check in at the information desk the surgery. The waiting room located on the second floor. If you have any questions prior to surgery, please call Pre-Admission Clinic at [phone] between 7:30 am and 4:30 pm Monday through Monday. If you have questions the morning of surgery, please call the Pre-op Department at [phone]. Notify your SURGEON if you develop any [...] specifically instructed by your surgeon to stop. STOPtaking all herbal products/teas one week prior to [...] would like to schedule therapy at a [facility] facility, please call [address] [place] [address] ([phone]). Do not use lotions, creams, powders, perfume, make up, cologne or after-shaves day of surgery. Remove ALL jewelry including wedding rings, body piercings,hair extensions that contain metal, nailpolish, make-up, and contact lens. You may brush [...] items and leave them in the car untilyou are taken to your room after surgery. [...] following some types of surgeries involving the eyes,ears, sinuses and throat. Always follow your doctor's [...] RIGHTS AND RESPONSIBILITIES As a patient at [facility], you have the right to: Receive medical care and be informed of who is taking care of you Be treated with dignity and respect Have a family member/tax 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 of choice and your physician notified of your admission Receive information and actively participate in decisions about your care and treatment Refuse care, treatment and services Decide who may provide your support and speak for you Access holiness and spiritual services Participate in ethical issues [...] of hospital charges and payment methods Patient/patient tax 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 responsibilities are to: Provide information about health status to facilitate care, treatment and services Follow the treatment, plan, keep appointments and speak up when you do not understand the plan Respect the rights of other patients and healthcare personnel Follow organizational rules and regulations that support quality care and a safe environment Fulfill financial obligations as promptly as possible [facility]03-13-[facility]24 Miscellaneous Notes* Pre-Procedure Instructions - Katelyn Allred RN - 11/15/2023 9:09 AM EDT Your surgery/procedure is scheduled at [facility] on 11/22/23 at 1:30 pm Arrival Time 11:30 am [facility] Address: [address] [place] [address] in [address]1 Parking lot located on [facility]. Report to the Entrance B. Check in at the information desk the surgery. The waiting room located on the second floor. If you have any questions prior to surgery, please call Pre-Admission Clinic at [phone] between 7:30 am and 4:30 pm Monday through Monday. If you have questions the morning of surgery, please call the Pre-op Department at [phone]. Notify your SURGEON if you develop any [...] specifically instructed by your surgeon to stop. STOPtaking all herbal products/teas one week prior to [...] [facility], please call [phone] ([phone]). Do not use lotions, creams, powders, perfume, make up, cologne or after-shaves day of surgery. Remove ALL jewelry including wedding rings, body piercings,hair extensions that contain metal, nailpolish, make-up, and contact lens. You may brush [...] items and leave them in the car untilyou are taken to your room after surgery. [...] following some types of surgeries involving the eyes,ears, sinuses and throat. Always follow your doctor's [...] RIGHTS AND RESPONSIBILITIES As a patient at [facility], you have the right to: Receive medical care and be informed of who is taking care of you Be treated with dignity and respect Have a family member/tax 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 of choice and your physician notified of your admission Receive information and actively participate in decisions about your care and treatment Refuse care, treatment and services Decide who may provide your support and speak for you Access holiness and spiritual services Participate in ethical issues [...] of hospital charges and payment methods Patient/patient tax 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 responsibilities are to: Provide information about health status to facilitate care, treatment and services Follow the treatment, plan, keep appointments and speak up when you do not understand the plan Respect the rights of other patients and healthcare personnel Follow organizational rules and regulations that support quality care and a safe environment Fulfill financial obligations as promptly as possible documented in this encounterMer[facility]03-08-[facility] History of Present illness Narrative* Libby Finley MD - 11/10/2023 11:00 AM EST Images from the original note were not included. [facility] [address] [place] [phone] Subjective: Chief Complaint Mediastinal lymphadenopathy HPI The patient is 43-year-old female who is here as a new patient, she was referred by CT surgery for evaluation for EBUS. The patient had CT scan of the chest on 09/26/2021 that showed right upper lobe lung nodule 1.5 cm,repeat CT scan after 1 month of that [...] at rest. No wheezing She worked in [employer] in the past with no significant exposure to chemicals. No exposure to asbestos. She does not work since 3-4 years. She lives with her in apartment in [place] Review of Systems Constitutional: Negative. Negative for [...] this note were generated using voice recognition [employer] dictation software. Although every effort was made to ensure the accuracy of this automated almond blancher operator, some errors in almond blancher operator may have occurred. documented in this encounterMercy Health Perrysburg Hospital03-07-2024 History of Present illness Narrative* Ana Mckeon CMA - 11/09/2023 9:15 AM EST Pulm referral for EBUS for pet positive mediastinal lymph node documented in this encounterMercy Health Perrysburg Hospital03-07-2024 History of Present illness Narrative* Ryan Mcneal MD - 11/09/2023 9:00 AM EST Images from the original note were [...] by mouth in the morning. Yes Not InSystem Ref Prov buPROPion XL (WELLBUTRIN XL) 300 [...] (15 mg total) by mouth in the morning.06/19/23 Yes Not In System Ref Prov pantoprazole [...] Stress: No Stress Concern Present (06/05/2023) [employer] - Occupational Stress Questionnaire Feeling of Stress : Only a little Social Connections: Moderately Isolated (06/05/2023) Social Connection and Isolation Panel [NHANES] Frequency of Communication with Friends and Family: More than three times a week Frequency of Social Gatherings with Friends and Family: More than three times a week Attends Faith Services: Never Active Member of Clubs or [...] participate in her care documented in this encounterMercy Health Perry[facility] Hospital02-20-2024 History of Present illness Narrative* Bethanie Loredo - 10/24/2023 3:48 PM EST Lvm at the referrring office to follow up if patient had pet/ct scan completed documented in this encounterMercy Health Perrysburg Hospital02-06-2024 History of Present illness Narrative* Bethanie Loredo - 10/10/2023 11:21 AM EST Contacted the referring office to see if patient got PET/CT scan completed. Referring office is still waiting for testing to be completed documented in this encounterMercy Health Perry[facility] Hospital02-06-2024 History of Present illness Narrative* Dayanara Wheatley LPN - 10/10/2023 8:00 AM EST Reason for Appointment: Patient ID: Carissa Santos is a 43 y.o. female who presents for Amenorrhea Patient presents today via telephone call for a telehealth appointment. Patients Phone #: [phone] (mobile) Current Medications: has a current medication [...] rhinitis due to allergen 10/01/2009 Anxiety state ([facility]) 10/01/2009 Carpal tunnel syndrome of left wrist 04/06/2023 Contracture, unspecified ankle 04/06/2023 Edema 04/06/2023 Equinus deformity of left foot 04/06/2023 Gastroesophageal reflux disease 04/06/2023 Genital warts 04/06/2023 Hot flashes due to menopause 04/06/2023 Type 2 diabetes mellitus with microalbuminuria, with long-term current use of insulin ([facility]) 04/06/2023 Internal derangement of left shoulder 04/06/2023 Irritable bowel syndrome with diarrhea 04/06/2023 Mild developmental delay 09/29/2021 Migraine without aura, not refractory ([facility]) 04/06/2023 Mild episode of recurrent major depressive disorder (HCC) ([facility]) 04/06/2023 Morbid obesity ([facility]) 11/21/2022 Type 2 diabetes mellitus with polyneuropathy ([facility]) 06/10/2021 Obstructive sleep apnea syndrome 09/30/2009 Osteoarthritis of knee 04/06/2023 Overactive bladder 04/06/2023 Panic disorder without agoraphobia ([facility]) 11/12/2009 Dyslipidemia ([facility]) 04/22/2010 Spondylosis without myelopathy 08/10/2010 Cavitary lesion of lung 08/10/2023 Other chest pain 08/10/2023 Resolved Ambulatory Problems Diagnosis Date Noted Acute kidney injury (DREW) with acute tubular necrosis (ATN) ([facility]) 09/30/2021 Acute pain of left shoulder 04/06/2023 Shoulder joint pain 04/06/2021 Convulsions in the 09/30/2009 Cubital tunnel syndrome on left 11/04/2022 Fecal incontinence 06/22/2016 High anion gap metabolic acidosis 09/30/2021 Hyperglycemia 03/01/2019 Mild intellectual disability ([facility]) 09/30/2009 Other chronic pain 04/06/2023 Pneumonia due to infectious organism 09/29/2021 Poorly controlled diabetes mellitus ([facility]) 08/10/2015 Normal gynecologic examination 06/09/2015 Missed period 04/06/2023 DKA, type 1, not at goal ([facility]) 09/27/2021 Type 2 diabetes mellitus ([facility]) 09/30/2009 Past Medical History: Diagnosis Date Ankle fracture Anxiety and depression ([facility]) At low risk for fall Bilateral leg edema Chest pain, central Chronic left shoulder pain Chronic pain Epilepsy ([facility]) JOHN (generalized anxiety disorder) ([facility]) GERD (gastroesophageal reflux disease) History of being hospitalized History of medical problems Hyperlipidemia ([facility]) Insomnia, persistent MDD (major depressive disorder), recurrent episode, mild (HCC) ([facility]) Migraine without aura and without status migrainosus, not intractable ([facility]) Morbid obesity with BMI of 40.0-44.9, adult ([facility]) Nocturnal hypoxemia Nonsmoker OAB (overactive bladder) Obesity JOSE M (obstructive sleep apnea) Postoperative urinary retention Primary osteoarthritis of left knee Seasonal allergies Type 2 diabetes mellitus with diabetic polyneuropathy, with long-term current use of insulin ([facility]) Type 2 diabetes mellitus with hyperglycemia, with long-term current use of insulin ([facility]) Type 2 diabetes mellitus without complication ([facility]) Vitamin D deficiency Family History Problem Relation [...] labs and ultrasound ordered and faxed to [place] for pt to have obtained. Will notify when results come in. Pt voiced understanding. Documented by Dayanara Wheatley LPN on behalf of: Feliz Benz DO documented in this encounterSaint Francis Hospital & Health [id number] History of Present illness Narrative* Barry Snowden NP - 10/05/2023 1:45 PM EST HISTORY OF PRESENT ILLNESS: Carissa Santos is [...] swelling. Pain is 0/10 today, goes to 6/10at HS. Denies drainage. Stitches intact, removed today. [...] planes with 5 out of 5 strength. Radialand ulnar pulses were present and equal bilaterally postoperatively. Capillary refill was less than2 seconds postoperatively to operative upper extremity nailbeds. Compartments were soft to operative upper extremity postoperatively. ASSESSMENT: Status post carpal tunnel release PLAN: 10 days s/p LT Carpal tunnel release: Plan: I reviewed Post Op care and instructions with the patient. No forceful gripping for 4 weeks from the date of surgery. Work on rom of fingers. use for lightactivities such as eating, keyboarding, writing and phone. She will follow up in 4 weeks for RCK. Questions answered in laymen terms at the bedside. The diagnosis, home exercise plan and any ongoing restrictions/ recommendations reviewed. If unable to be reached in office, I recommend evaluation atnearest Emergency Room if any symptoms worsened or new symptoms develop for requiring urgent evaluation. Brary Snowden CYTOLOGY TEACHER-PUBLIC WEIGHER documented in this encounterSaint Francis Hospital & Health [id number] Note [id number]#1.00[facility]01-23-2024 [id number]#1.00[facility] 09-25-2023 [facility] SURGERY Clinical Discharge Summary PERSON INFORMATION Name CARISSA SANTOS Age 43 Years 1980 Sex FEMALE Language [place] PCP DIAZ DALTON Marital Status Phone Med Service Ambulatory Surgery Acct# Arrival 09/25/2023 06:07:34 Visit Reason Surgery- Left carpal tunnel release Acuity LOS 018 22:07 Address: [address] [facility] [address] Comment: PROVIDER INFORMATION VITALS INFORMATION Vital Sign [...] mg/0.5 mL subcutaneous solution) 0.5 Milliliter Subcutaneous (underthe skin) every week. insulin aspart (NovoLOG FlexPen 100 units/mL injectable solution) sliding scale Subcutaneous (underthe skin) 2 times a day (scheduled). insulin glargine (Lantus 100 units/mL subcutaneous solution) 15 Subcutaneous (under the skin) everyday. lamoTRIgine (lamoTRIgine 200 mg oral tablet, extended release) 1 tab(s) Oral (given by mouth) everyday. nabumetone (nabumetone 500 mg oral tablet) 2 [...] mg/0.5 mL subcutaneous solution) 0.5 Milliliter Subcutaneous (underthe skin) every week. insulin aspart (NovoLOG FlexPen 100 units/mL injectable solution) sliding scale Subcutaneous (underthe skin) 2 times a day (scheduled). insulin glargine (Lantus 100 units/mL subcutaneous solution) 15 Subcutaneous (under the skin) everyday. lamoTRIgine (lamoTRIgine 200 mg oral tablet, extended release) 1 tab(s) Oral (given by mouth) everyday. nabumetone (nabumetone 500 mg oral tablet) 2 [...] mg/0.5 mL subcutaneous solution) 0.5 Milliliter Subcutaneous (underthe skin) every week. insulin aspart (NovoLOG FlexPen 100 units/mL injectable solution) sliding scale Subcutaneous (underthe skin) 2 times a day (scheduled). insulin glargine (Lantus 100 units/mL subcutaneous solution) 15 Subcutaneous (under the skin) everyday. lamoTRIgine (lamoTRIgine 200 mg oral tablet, extended release) 1 tab(s) Oral (given by mouth) everyday. nabumetone (nabumetone 500 mg oral tablet) 2 [...] mouth) every day. dulagluti (more content not included)...[facility] [id number] Note Procedure: Decompression of median nerve left wrist with release [...] to proceed with surgery and the patient requestedthe same. Findings: The median nerve was noted to be present and intact within the carpal canal. The carpal canal/tunnel was stenotic Blood Loss: Scant Specimen: None Procedure Summary: The upper extremity was sterilely prepped and draped in usual fashion. A timeoutwas taken in the operating room. After administration [...] wound was irrigated with copious amounts sterile salineand the skin was closed with nylon suture. Adaptic sterile dressings and an Marco A bandage were applied with the thumb in apposition Complications: None [Electronically Signed on: 09/25/2023 08:41 EST] Gary Miller DO [Verified on: 09/25/2023 08:41 EST] Gary Miller [facility]01-08-2024 History of Present illness Narrative* Bethanie Loredo - 09/11/2023 2:30 PM EST 2nd attempt to contact referring office for most recent office notes and testing documented in this encounterCh[facility]ic[facility] [id number] Note Attestation signed by Robson Paz MD [...] Medical History: Diagnosis Date Anxiety Diabetes mellitus ([facility]) Objective Exam: - Incision with slight gapping [...] Ousmane Perez MD Orthopedic Surgery, PGY-5 Pager: [phone] 12/07/22 11:51 AM By using the attestations [...] may be an additional personal documentation from me.[facility]03-20-2023 NotePatient: Carissa Santos Procedure Summary Date: 11/21/22 Room / Location: [facility] OR [address] [place] [address] [facility] OR Anesthesia Start: 1047 Anesthesia Stop: 1144 [...] were no known notable events for this encounter.[facility]03-20-2023 NotePatient: Carissa Santos Procedure Information Anesthesia Start Date/Time: 11/21/221046 Procedure: ULNAR NERVE DECOMPRESSION (Left: Forearm) Location: [address] Surgeons: Robson Paz MD Relevant [...] patient. Plan discussed with CAA. Additional Equipment RequestsUnSelect Medical Specialty [facility]03-20-2023 Note Patient: Carissa Santos Procedure Summary Date: 11/21/22 Room / Location: [address] OR Anesthesia Start: 1046 Anesthesia Stop: Procedure: ULNAR NERVE DECOMPRESSION (Left: Forearm) Diagnosis: Cubital tunnel syndrome on left (Cubital tunnel syndrome on left [G56.22]) Surgeons: Robson Paz MD Responsible Provider: Paul Smith MD Anesthesia Type: MAC ASA Status: Not recorded Anesthesia Post Transport [facility] Oxygen Flow (L/min): 8 Patient Monitor: direct observation Transport: uneventful Patient condition is: stableUnSelect Medical Specialty [facility]03-20-2023 Note Peripheral Block Patient location during procedure: pre-op Start time: 11/21/2022 10:15 AM End time: 11/21/2022 10:30 AM Reason for block: primary anesthetic and at surgeon's request Staffing Performed: resident/FISHING TOOL OPERATOR/CAA Anesthesiologist: Paul Smith MD Resident/FISHING TOOL OPERATOR: Mike Calloway MD Preanesthetic Checklist Completed: [...] Heart rate change: no Slow fractionated injection: yesUnSelect Medical Special[facility]03-03-2023 Note Attestation signed by Robson Paz MD [...] Santos is a 42 y.o. year old gurs-omad-fuoocpow female presenting for evaluation of left hand [...] Past Medical History: Diagnosis Date Diabetes mellitus ([facility]) Objective General: Body mass index is [...] finger: normal A1 carina and AROM Strength: test deskman 5/5, thumb 5/5, interossei 5/5 Sensation: intact [...] intervention - Instructed patient that our surgical garment assembly supervisor reach out regarding future surgical date - Surgery will be performed under regional anesthesia -Return to clinic for surgical intervention -Call the orthopedic office any questions or concerns Michael Ward MD Orthopedic Surgery Resident Physician Pager: [phone] 11/04/22 12:35 PM By using the attestations [...] may be an additional personal documentation from me.[facility]01-30-2022 History of Present illness Narrative* Guido Salas DO - 10/03/2021 12:57 PM EST Images from the original note were not included. [facility] Office: [phone] Hemal Charles DO, Steve Raza DO, Costa Cai DO, Gallito Lino DO, Natalee Negrete MD, Coreen Bryant MD, Shruti Bautista MD, Zulay Bueno MD, Priya Paul MD, Kevin Collins MD, Lyndsey Galindo MD, Morro Overton DO, Guido Salas DO, Rakel Aquino MD, Libby Samuel DO, MD Hazel, Kalyan Corbett MD, Shahzad Faria MD, Cee Casarez MD, Donavan Richardson MD, Autumn David, PUBLIC WEIGHER, Laurie Hernandez, PUBLIC WEIGHER, Veronica Garcia, PUBLIC WEIGHER, Ada Rascon, MARKETING FINANCE MANAGER, Jamal Soto, PUBLIC WEIGHER, Shellie Patton, PUBLIC WEIGHER, Dahiana Albarado, PUBLIC WEIGHER, Reba Holly, PUBLIC WEIGHER, Andi Mcdonald, PUBLIC WEIGHER, Terrance Smalls PA-C, Dahiana Vyas, KIMBERLY, Christina Tanner, KIMBERLY, Karyna Hernandez, PUBLIC WEIGHER, Corina Bedoya, PUBLIC WEIGHER, Amber Dewey, PUBLIC WEIGHER, Archana Lockhart, PUBLIC WEIGHER, Emili Stapleton, PUBLIC WEIGHER, Nina Anthony, PUBLIC WEIGHER [facility] IN-PATIENT SERVICE [facility] Progress Note 10/03/2021 12:57 PM Name: Carissa Santos Acct: [id number] Room: [address] [place] [address] Day: 5 Admit Date: 09/28/2021 9:38 AM PCP: Diaz Dalton MD Code Status: Full Code Subjective: C/C: DKA Interval History Status: unchanged. Patient seen and examined, feeling better today. Discharge, plan for transfer to be Brief History: Carissa Santos is a 41 year [facility]. Her presentation to ED on 09/26/21 showed her initial blood sugar of 816 with a beta-hydroxybutyrate 11.24, anion gap >25 with (+) ketones in urine. She was started on DKA protocol with bicarb drip, IVF and insulin drip and was transferred to [facility] on 09/28/21 for ICU admission and further treatment. Inaddition she had an elevated D-dimer. CTPE (-) [...] with acute tubular necrosis (ATN) ([facility]) 09/30/2021 Yes High anion gap metabolic [...] [facility] Will need repeat CT in 3 months based on Fleischner criteria Guido Salas DO 10/03/2021 12:57 PM * Jesus Rivera MD - 10/03/2021 12:56 PM EST PULMONARY & CRITICAL CARE MEDICINE PROGRESS NOTE Patient: Carissa Santos Admit date: 09/28/2021 Primary Care Physician: Diaz Dalton MD Consulting Physician: Guido Salas DO CODE Status: Full Code LOS: 5 SUBJECTIVE Chief Complaint/ Reason for consult: Pneumonia Hospital Course: The patient is a 41 y.o. female with past medical history of MRDD initially went to the [facility] for nausea, shivering, chills and altered mental status. Patient was found to have DKA with bilateral lower lobe pneumonia. CTA negative for PE but it showed 13 mm pulmonary nodule. Patient was transferred to [facility] for further care. In ICU she [...] In: 750 [P.O.:750] Out: - Date 10/03/21 - 10/03/212358 Shift 5097-3620 4999-8773 3278-6236 24 Hour Total INTAKE P.O.(mL/kg/hr) 360(0.4) 360 Shift Total(mL/kg) 360(3.6) 360(3.6) OUTPUT Shift Total(mL/kg) Weight (kg) 101.2 101.2 101.2 101.2 LABS: ABGs: No results for input(s): POCPH, POCPCO2, POCPO2, POCHCO3, [id number] in the last 72 hours. CBC: Recent [...] this chart was generated using voice recognition [employer] dictation software. Although every effort was made to ensure the accuracy of this automated almond blancher operator, some errors in almond blancher operator may have occurred. * Li Phelan RN - 10/02/2021 3:55 PM EST Interior Systems Carpenter spoke with pt's mother Jeanine in regards to patient's discharge. Jeanine states she knows howto perform the dressing on pt's arm and is comfortable doing so. Pt will need a ride home. [employer] Carpenter will reach out to case management for setting up a ride. * Guido Salas DO - 10/02/2021 1:51 PM EST Images from the original note were not included. [facility] Office: [phone] Hemal Charles DO, Steve Raza DO, Costa Cai DO, Gallito Lino DO, Natalee Negrete MD, Coreen Bryant MD, Shruti Bautista MD, Zulay Bueno MD, Priya Paul MD, Kevin Collins MD, Lyndsey Galindo MD, Morro Overton DO, Guido Salas DO, Rakel Aquino MD, Libby Samuel DO, MD Hazel, Kalyan Corbett MD, Shahzad Faria MD, Cee Casarez MD, Donavan Richardson MD, Autumn David, PUBLIC WEIGHER, Laurie Hernandez, PUBLIC WEIGHER, Veronica Garcia, PUBLIC WEIGHER, Ada Rascon, MARKETING FINANCE MANAGER, Jamal Soto, PUBLIC WEIGHER, Shellie Patton, PUBLIC WEIGHER, Dahiana Albarado, PUBLIC WEIGHER, Reba Holly, PUBLIC WEIGHER, Andi Mcdonald, PUBLIC WEIGHER, Terrance Smalls PA-C, Dahiana Vyas, DNP, Christina Tanner, DNP, Karyna Hernandez, PUBLIC WEIGHER, Corina Bedoya, PUBLIC WEIGHER, Amber Dewey, PUBLIC WEIGHER, Archana Lockhart, PUBLIC WEIGHER, Emili Stapleton, PUBLIC WEIGHER, Nina Anthony, PUBLIC WEIGHER [facility] IN-PATIENT SERVICE [facility] Progress Note 10/02/2021 1:51 PM Name: Carissa Santos Acct: [id number] Room: 0161/0161-01 IP Day: 4 Admit Date: [...] old [facility]. Her presentation to ED on 09/26/21 showed her initial blood sugar of 816 with a beta-hydroxybutyrate 11.24, anion gap >25 with (+) ketones in urine. She was started on DKA protocol with bicarb drip, IVF and insulin drip and was transferred to [facility] on 09/28/21 for ICU admission and further treatment. Inaddition she had an elevated D-dimer. CTPE (-) [...] with acute tubular necrosis (ATN) ([facility]) 09/30/2021 Yes High anion gap metabolic [...] criteria Guido Salas DO 10/02/2021 1:51 PM * Keith Bailey MD - 10/02/2021 11:34 AM EST PULMONARY & CRITICAL CARE MEDICINE PROGRESS NOTE Patient: Carissa Santos Admit date: 09/28/2021 Primary Care Physician: Diaz Dalton MD Consulting Physician: Guido Salas DO CODE Status: Full Code LOS: 4 SUBJECTIVE Chief Complaint/ Reason for consult: Pneumonia Hospital Course: The patient is a 41 y.o. female with past medical history of MRDD initially went to the [facility] for nausea, shivering, chills and altered mental status. Patient was found to have DKA with bilateral lower lobe pneumonia. CTA negative for PE but it showed 13 mm pulmonary nodule. Patient was transferred to [facility] for further care. In ICU she [...] 400 [Urine:400] Date 10/02/21 0000 - 10/02/21 2359 Shift 3290-1935 9409-6840 7191-3663 24 Hour Total INTAKE I.V.(mL/kg) 522(5.2) 522(5.2) Shift Total(mL/kg) 522(5.2) 522(5.2) OUTPUT Shift Total(mL/kg) Weight (kg) 101.2 101.2 101.2 101.2 LABS: ABGs: No results for input(s): POCPH, POCPCO2, POCPO2, POCHCO3, [id number] in the last 72 hours. CBC: Recent [...] Keith Bailey MD PGY-3, Internal medicine resident [facility], [place], [place] Please note that this chart was generated using voice recognition Image Socketon dictation software. Although every effort was made to ensure the accuracy of this automated almond blancher operator, some errors in almond blancher operator may have occurred. Associated attestation - Gian Marr MD - 10/02/2021 6:49 PM EST Attending Physician Statement I have discussed the case of Carissa Santos, including pertinent history and exam findings with the resident/fellow/medical student/MAGISTRATE JUDGE/PA. I have seen and examined the patient and the timmons elements of the encounter have been performed by me. I agree with the assessment, plan and orders as documented by the resident/fellow/medical student/MAGISTRATE JUDGE/PA With changes made to the note as needed. Pt was seen during rounds. Review of Systems: In addition to the pertinent positives and negatives as stated within HPI and the review of systemsas documented in their notes, all other systems were reviewed when able to and are reported negative. Afebrile On room air Improving cough No leukocytosis Patient needs follow-up for the lung nodule identified in an [facility] films CT scan of the abdomen with trace bilateral pleural fluid and mild bibasilar atelectasis Patient will follow up with her primary care physician and ordnance engineer in [place] as she does nothave any transportation to come to [facility] Gian Marr MD 10/02/2021 6:48 PM * Li Phelan RN - 10/02/2021 10:21 AM EST Interior Systems Carpenter notified Pt was in SVT with HR in 160-170 that was sustained for approximately 1-2 minutes. Pt has since converted back to NSR ( HR 91) . Pt was asymptomatic during rhythm. Is there anything you would like done? . No new orders at this time. * Gosia Kolb RCP - 10/01/2021 1:03 PM EST RAULITO MORAESatient Assessment complete. DKA, type 1, not at [...] cough or weak non-productive cough GOSIA KOLB, TYPISTS SUPERVISOR 1:03 PM FEMALE MALE FEV1 Predicted Normal [...] [phone] * Sarah Guzmán PTA - 10/01/2021 12:43 PM EST Physical Therapy Facility/Department: [address] Daily Treatment Note NAME: [...] Inpatient Mobility Raw Score : 18 (10/01/21 123) AM-PAC Inpatient T-Scale Score : 43.63 (10/01/21 123) Mobility Inpatient CMS 0-100% Score: 46.58 (10/01/211229) Mobility Inpatient CMS G-Code Modifier : CK [...] Treatment Minutes: 26 Minutes Sarah Guzmán PTA * Jody Ro RD, LD - 10/01/2021 12:08 PM EST Called pt room ([id number]) and number in chart but no answer. Called nursing unit to check if appropriate to work with pt. Nurses said pt now a COVID-19 Rule out and is getting ready to go to CT. As faras education, staff hasn't been able to reach [...] touch base with her prior to D/c. * Guido Salas DO - 10/01/2021 11:21 AM EST Images from the original note were not included. [facility] Office: [phone] Hemal Charles DO, Steve Raza DO, Costa Cai DO, Gallito Lino DO, Natalee Negrete MD, Coreen Bryant MD, Shruti Bautista MD, Zulay Bueno MD, Priya Paul MD, Kevin Collins MD, Lyndsey Galindo MD, Morro Overton DO, Guido Salas DO, Rakel Aquino MD, Libby Samuel DO, MD Hazel, Kalyan Corbett MD, Shahzad Faria MD, Cee Casarez MD, Donavan Richardson MD, Autumn David, PUBLIC WEIGHER, Laurie Hernandez, PUBLIC WEIGHER, Veronica Garcia, PUBLIC WEIGHER, Ada Rascon, MARKETING FINANCE MANAGER, Jamal Soto, PUBLIC WEIGHER, Shellie Patton, PUBLIC WEIGHER, Dahiana Albarado, PUBLIC WEIGHER, Reba Holly, PUBLIC WEIGHER, Andi Mcdonald, PUBLIC WEIGHER, YANIRA MarrC, Dahiana Vyas, DNP, Christina Tanner, DNP, Karyna Hernandez, PUBLIC WEIGHER, Corina Bedoya, PUBLIC WEIGHER, Amber Dewey, PUBLIC WEIGHER, Archana Lockhart, PUBLIC WEIGHER, Emili Stapleton, PUBLIC WEIGHER, Nina Anthony, PUBLIC WEIGHER [facility] IN-PATIENT SERVICE [facility] Progress Note 10/01/2021 11:21 AM Name: Carissa Santos Acct: [id number] Room: [facility] Day: 3 Admit Date: 09/28/2021 9:38 AM PCP: Diaz Dalton MD Code Status: Full Code Subjective: C/C: DKA Interval History Status: unchanged. Patient seen and examined today, continues to have diffuse diarrhea. Bicarb still 13 on full bicarbdrip. Will consult infectious disease, spoke with nursing staff Brief History: Carissa Santos is a 41 year old [facility]. Her presentation to ED on 09/26/21 showed her initial blood sugar of 816 with a beta-hydroxybutyrate 11.24, anion gap >25 with (+) ketones in urine. She was started on DKA protocol with bicarb drip, IVF and insulin drip and was transferred to [facility] on 09/28/21 for ICU admission and further treatment. Inaddition she had an elevated D-dimer. CTPE (-) [...] with acute tubular necrosis (ATN) ([facility]) 09/30/2021 Yes High anion gap metabolic [...] criteria Guido Salas DO 10/01/2021 11:21 AM * Leonel Draper MD - 10/01/2021 10:27 AM EST PULMONARY & CRITICAL CARE MEDICINE PROGRESS NOTE Patient: Carissa Santos Admit date: 09/28/2021 Primary Care Physician: Diaz Dalton MD Consulting Physician: Guido Salas DO CODE Status: Full Code LOS: 3 SUBJECTIVE Chief Complaint/ Reason for consult: Pneumonia Hospital Course: The patient is a 41 y.o. female with past medical history of MRDD initially went to the [facility] for nausea, shivering, chills and altered mental status. Patient was found to have DKA with bilateral lower lobe pneumonia. CTA negative for PE but it showed 13 mm pulmonary nodule. Patient was transferred to [facility] for further care. In ICU she [...] Date 10/01/21 0000 - 10/01/21 2359 Shift 4315-6927 0156-7528 0326-5740 24 Hour Total INTAKE Shift Total(mL/kg) OUTPUT Urine(mL/kg/hr) 600(0.7) 600 Shift Total(mL/kg) 600(5.9) 600(5.9) Weight (kg) 101.2 101.2 101.2 101.2 LABS: ABGs: No results for input(s): POCPH, POCPCO2, POCPO2, POCHCO3, CYYC3CGL in the last 72 hours. CBC: Recent [...] Keith Bailey MD PGY-3, Internal medicine resident [facility], [place], [place] Please note that this chart was generated using voice recognition Dragon dictation software. Although every effort was made to ensure the accuracy of this automated almond blancher operator, some errors in almond blancher operator may have occurred. Attending Physician Statement [...] or chest pain. She remained on room airmaintaining saturation. According to patient she is still [...] need CT scan of the chest for follow-upof right middle lobe lung nodule in 3 months. Patient follow- up locally in [facility] with [facility] scan and outpatient pulmonary CT scan Discussed with nursing staff, treatment and plan discussed. Please note that this chart was generated using voice recognition Dragon dictation software. Although every effort was made to ensure the accuracy of this automated almond blancher operator, some errors in almond blancher operator may have occurred. Leonel Draper MD 10/01/2021 11:36 AM * Dayna Hinojosaofield - 09/30/2021 5:03 PM EST Occupational Therapy Occupational Therapy Initial Assessment Date: [...] [facility], able to bring to mouth with SBA.Pt scooted to EOB with Min A. Pt completed sit<>stand from EOB with CGA, required VCs for prop er hand placement on bed during transfer. Pt completed functional mobility to/from bathroom with CGA for safety and required Mod VCs for walker navigation and proper body/foot placement within RW. Ptcompleted toilet transfer with CGA, utilizing hand rails [...] complete oral hygiene after prep with SBA. Completedface washing with SBA. Pt retired in recliner [...] Ambulation Assistance: Independent Transfer Assistance: Independent Active Barge Engineer: No Patient's Barge Engineer Info: mother drives Occupation: Unemployed Leisure & Hobbies: Enjoys cooking Additional Comments: Pt reports is able to provide 24hr assistance, mother lives nearby andable to assist PRN. Objective Vision: Impaired Vision [...] procurement,Self-Care / ADL,Home Management Training AM-PAC Score AM-[facility] Inpatient Daily Activity Raw Score: 18 (09/30/211709) AM-[facility] Inpatient ADL T-Scale Score : 38.66 (09/30/211709) ADL Inpatient [facility] 0-100% Score: 46.65 (09/30/211709) ADL Inpatient [facility] G-Code Modifier : CK (09/30/211709) Goals Short [...] Treatment Minutes: 23 Minutes Dayna Yates OTS * Mary oWng - 09/30/2021 4:47 PM EST Interior Systems Carpenter reached out to community health program 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 on 2C to obtain lung scans from [facility]. post office markup clerk attempting to reach out, insurance underwriter will reevaluate * Jody Ro RD, COURT - 09/30/2021 4:00 PM EST Attempted assessment/education but care process manager assisting pt with personal care/needs. * Leonel Draper MD - 09/30/2021 3:10 PM EST PULMONARY & CRITICAL CARE MEDICINE PROGRESS NOTE Patient: Carissa Santos Admit date: 09/28/2021 Primary Care Physician: Diaz Dalton MD Consulting Physician: Maycol Gomez MD CODE Status: Full Code LOS: 2 SUBJECTIVE Chief Complaint/ Reason for consult: Pneumonia Hospital Course: The patient is a 41 y.o. female with past medical history of MRDD initially went to the [facility] for nausea, shivering, chills and altered mental status. Patient was found to have DKA with bilateral lower lobe pneumonia. CTA negative for PE but it showed 13 mm pulmonary nodule. Patient was transferred to [facility] for further care. In ICU she [...] 5' (1.524 m) Wt 223 lb 3.2 oz(101.2 kg) SpO2 100% BMI 43.59 kg/m 8-24 [...] % and 0.45 % NaCl Stopped (09/29/21 07) INPUT/OUTPUT: In: 3 [I.V.:1737] Out: 2750 [Urine:2750] Date 09/30/21 0000 - 09/30/21 2359 Shift 9056-5708 2892-3832 1540-6970 24 Hour Total INTAKE Shift Total(mL/kg) OUTPUT Urine(mL/kg/hr) 500(0.6) 1000 1500 Shift Total(mL/kg) 500(4.9) 1000(9.9) 1500(14.8) Weight (kg) 101.2 101.2 101.2 101.2 LABS: ABGs: No results for input(s): POCPH, POCPCO2, POCPO2, POCHCO3, LVGA8IOP in the last 72 hours. CBC: Recent [...] -- YEAST, NOT SHENG ALBICANS OR SHENG [id number] to 50,000 CFU/ML* YEAST, NOT SHENG ALBICANS [...] Keith Bailey MD PGY-3, Internal medicine resident [facility], [place], [place] Please note that this chart was generated using voice recognition Image Socketon dictation software. Although every effort was made to ensure the accuracy of this automated almond blancher operator, some errors in almond blancher operator may have occurred. Attending Physician Statement [...] and Zithromax as a CT scan [facility] before [...] this chart was generated using voice recognition Image Socketon dictation software. Although every effort was made to ensure the accuracy of this automated almond blancher operator, some errors in almond blancher operator may have occurred. Leonel Draper MD 09/30/2021 3:36 PM * Mary Wong - 09/30/2021 12:51 PM EST RN attempted to call mother of patient, Lynne, to give update on pt's status, with no answer. Will try again later. * Chinyere Black, PT - 09/30/2021 12:39 PM EST Physical Therapy Facility/Department: [address] Initial Assessment NAME: Carissa Santos : 1980 Carissa Santos is a 41 y.o. Non- / non female who presents with No chief complaint onfile. and is admitted to the hospital for [...] Ambulation Assistance: Independent Transfer Assistance: Independent Active Barge Engineer: No Patient's Barge Engineer Info: mother drives Occupation: Unemployed Leisure & Hobbies: Enjoys cooking Additional Comments: Pt reports is able to provide 24hr assistance, mother lives nearby andable to assist PRN. Cognition Cognition Overall Cognitive [...] Bed mobility Supine to Sit: Minimal assistance (TOP HAT BODY MAKER) Sit to Supine: (retired to bedside chair [...] Treatment Minutes: 8 Minutes Chinyere Black PT * Terrance Smalls PA-C - 09/30/2021 11:41 AM EST Images from the original note were not included. [facility] Office: [phone] Hemal Charles DO, Steve Raza DO, Costa Cai DO, Gallito Lino DO, Natalee Negrete MD, Coreen Bryant MD, Shruti Bautista MD, Zulay Bueno MD, Priya Paul MD, Kevin Collins MD, Lyndsey Galindo MD, Morro Overton DO, Guido Salas DO, Rakel Aquino MD, Libby Samuel DO, MD Hazel, Kalyan Corbett MD, Shahzad Faria MD, Cee Casarez MD, Donavan Richardson MD, Autumn David PUBLIC WEIGHER, Laurie Hernandez PUBLIC WEIGHER, Veronica Garcia, PUBLIC WEIGHER, Ada Rascon, MARKETING FINANCE MANAGER, Jamal Soto, PUBLIC WEIGHER, Shellie Patton, PUBLIC WEIGHER, Dahiana Albarado, PUBLIC WEIGHER, Reba Holly, PUBLIC WEIGHER, Andi Mcdonald, PUBLIC WEIGHER, Terrance Smalls PA-C, Dahiana Vyas, DNP, Christina Tanner, DNP, Karyna Hernandez, PUBLIC WEIGHER, Corina Bedoya, PUBLIC WEIGHER, Amber Dewey PUBLIC WEIGHER, Archana Lockhart, PUBLIC WEIGHER, Emili Stapleton, PUBLIC WEIGHER, Nina Anthony, PUBLIC WEIGHER [facility] IN-PATIENT SERVICE [facility] Progress Note 09/30/2021 11:41 AM Name: Carissa Santos Acct: [id number] Room: [id number]- Day: 2 Admit Date: 09/28/2021 9:38 AM [...] and insulin drip and was transferred to [facility] on 09/28/21 for ICU admission and further treatment. Inaddition she had an elevated D-dimer. CTPE (-) for PE but concerning for RML pulmonary nodule and ill-defined ground glass opacification in the RUL concerning for PNA. She did have episodes of vomiting which have subsided. She was bridged to lantus insulin and insulin drip was discontinued. Transfer to [facility] bed 09/29/21 Review of Systems: Constitutional: [...] dextrose, glucagon (rDNA), dextrose, acetaminophen, dextrose, magnesium sulfate,sodium phosphate IVPB OR sodium phosphate IVPB OR [...] criteria Terrance Smalls PA-C 09/30/2021 11:41 AM * Tomer Lara MD - 09/29/2021 3:09 PM EST Critical care team - Resident sign-out to medicine service Date and time: 09/29/2021 3:09 PM Patient's name: Carissa Santos Patient's account/billing number: [id number] Patient's Date of : 1980 Age: 41 [...] history of MRDD, diabetes mellitus came from [facility] after presenting there with altered mental status and found to be in DKA. Over that patient was startedon an insulin drip, Ringer lactate, bicarb drip. Transferred to [facility] for further management. Overnight was bridged to Lantus, tolerating diet. On admission her D-dimer was high, CT PE negative for emboli but concerning for pneumonia as well as right middle lobe 13 mm pulmonary nodule. Patient is being treated with ceftriaxone and azithromycin for pneumonia and UTI, Diflucan added for yeast in urine. business services administrator consulted Current Vitals: BP (!) 109/59 Pulse [...] admitting resident will be following up the patientfrom now onwards on the floor. Harmandeep Giron Leigha, MD, MCarlos. PGY-2 IM Resident 09/29/2021, 3:09 PM * Mi Giron Sra, MD - 09/29/2021 8:18 AM EST Critical Care Team - Daily Progress Note Date and time: 09/29/2021 8:19 AM Patient's name: Carissa Santos Patient's account/billing number: [id number] Patient's Date of : 1980 Age: 41 [...] degree Ulcer prophylaxis: [] PPI Agent, [] G2Pxevo, [] Sucralfate, [] Other: Not indicated Glycemic [...] Ht 5' (1.524 m) Wt 223 lb 3.2oz (101.2 kg) SpO2 98% BMI 43.59 kg/m [...] 107* Last 3 Blood Glucose: Recent Labs 09/28/217 09/29/21 0153 09/29/21 0501 GLUCOSE 156* 127* [...] Giron Sra, MD Department of Critical Care [facility] [place] 09/29/2021, 8:19 AM Associated attestation - Gian Marr MD - 09/29/2021 7:26 PM EST Attending Physician Statement I have discussed the case of Carissa Santos, including pertinent history and exam findings with the resident/fellow/medical student/MAGISTRATE JUDGE/PA. I have seen and examined the patient and the timmons elements of the encounter have been performed by me. I agree with the assessment, plan and orders as documented by the resident/fellow/medical student/MAGISTRATE JUDGE/PA With changes made to the note as needed. Pt was seen during rounds. Review of Systems: In addition to the pertinent positives and negatives as stated within HPI and the review of systemsas documented in their notes, all other systems were reviewed when able to and are reported negative. Adjust insulin for hyperglycemia Slight hyponatremia, continue to monitor Supplement potassium for hypokalemia Renal function is stable with elevated creatinine of 2.29 Leukocytosis improving Start oral diet Patient is on subcutaneous heparin Anemia slightly worse, continue to monitor We will transfer the patient to [facility] bed and we will follow the patient from pulmonarystandpoint for lung nodule and pneumonia Continue antibiotics Total critical care time caring for this patient with life threatening, unstable organ failure, including direct patient contact, management of life support systems, review of data including imaging and labs, discussions with other team members and physicians at least 30 Min so far today, excludingprocedures. Gian Marr MD 09/29/2021 7:25 PM * Ana Tapia RN - 09/28/2021 9:26 PM EST RN talked with pastoral care, Ethics consult entered per grants analyst's recommendation for help with decision making and comprehension with medical care/needs since pt's is also MRDD and pt's mother does not fully comprehend medical care/needs, Dr Casarez agreeable * Emili Brown - 09/28/2021 4:46 PM EST Updated pt's mom Lynne and Braxton. Per [...] Living apartment in a senior citizen's community. * Katelyn Camarena RN - 09/28/2021 2:45 PM EST Images from the original note [...] Wound Volume (cm^3) 2.96 cm^3 Wound Assessment Subcutaneous;[place]/red Drainage Amount Small Drainage Description Serosanguinous Odor [...] of learning [] Refused teaching [] N/A * Emili Brown - 09/28/2021 9:55 AM EST Pt arrived at 0930 receiving insulin 6units/hr and Sodium Bicarb 150meq in D5 at 100mL/hr. Pt received Zofran 4mg en route for nausea. BG 162 Vomited dark brown gastric contents upon arrival. [facility] this [facility] Phone: [phone]) 674-439001-26-2022 Hospital Discharge instructions* Discharge Instr - HEIKE* Li Phelan RN - 09/29/2021 1:44 PM [...] Independent Dressing Independent Toileting Independent Feeding Independent Machine Maintenance Mechanic Independent Med Delivery whole Wound Care Documentation [...] (Comment) 09/29/21 0800 Drainage Amount Small 09/28/21 144 Drainage Description Serosanguinous 09/28/21 1445 Odor None 09/28/21 144 Jerilyn-wound Assessment Other (Comment) 09/29/21 0800 Number [...] [facility] [address] [address] Dialysis Facility (if applicable) Name: Address: Dialysis Schedule: Phone: Fax: Senior Mobile Application Developer/Manager Hotel signature: PHYSICIAN SECTION Prognosis: Good Condition at Discharge: Stable Rehab Potential (if transferring to Rehab): Good Recommended Labs or Other Treatments After Discharge: FDC assessment, medication education, wound care Rt upper arm: Irrigate the arm wound with NS Gently fill with Iodoform gauze Cover with dry gauze Change daily. Physician Certification: I certify the above information and transfer of Carissa Santos is necessaryfor the continuing treatment of the diagnosis listed and that she requires Home Care for greater 30days. Update Admission H&P: No change in H&P PHYSICIAN SIGNATURE: * Additional Instructions* Guido Salas DO - 10/02/2021 See PCP 1 week, get kidney function checked Start lantus 10 units BID, increase by 5 units daily if morning blood sugars >120 otherwise do not change Follow-up in 3 months with PCP for repeat CT scan chest for pulmonary nodule evaluation documented in this encounterSum[email or web address] [email or web address] Phone: evaluation note* Diagnosis DKA, type 1, not at goal (HCC)- Primary 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, uncontrolled Pneumonia due to infectious organism Mental developmental delay Unspecified delay in development Acute kidney injury (DREW) with acute tubular necrosis (ATN) ([facility]) High anion gap metabolic acidosis Acidosis documented in this encounter [employer] Phone: evaluation note* Diagnosis Status post carpal tunnel release- Primary Other postprocedural status Amenorrhea Absence of menstruation documented in this encounter [facility]* Diagnosis Amenorrhea Absence of menstruation documented in this encounter [facility]* Diagnosis Type 2 diabetes mellitus with hyperglycemia, with long-term current use of insulin ([facility])- Primary documented in this encounter [facility]* Diagnosis Post-operative pain- Primary Other acute postoperative pain documented in this encounter [facility]* Diagnosis Mild episode of recurrent major depressive disorder (HCC) ([facility])- Primary Type 2 diabetes mellitus with microalbuminuria, with long-term current use of insulin ([facility]) JOHN (generalized anxiety disorder) ([facility]) Generalized anxiety disorder Migraine without aura and without status migrainosus, not intractable ([facility]) Irritable bowel syndrome with diarrhea Irritable bowel syndrome Gastroesophageal reflux disease without esophagitis Esophageal reflux Hot flashes due to menopause Morbid obesity ([facility]) Morbid obesity 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 insulin (Z79.4) Obesity hypoventilation [...] disorder (HCC) (CMS/HCC) JOHN (generalized anxiety disorder) ([facility]/HCC) Generalized anxiety disorder Generalized edema 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 Spondylosis of unspecified site without mention of myelopathy 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 elsewhere (CMS/HCC) Acute pain of right knee- Primary Type 2 diabetes mellitus with microalbuminuria, with long-term current use of insulin ([facility]/HCC) Right carpal tunnel syndrome Carpal tunnel syndrome Status post carpal tunnel release- Primary Other postprocedural status documented in this encounter [facility]* Diagnosis Pulmonary hypertension ([facility])- Primary Other chronic pulmonary heart diseases documented [facility]* Diagnosis Mild episode of recurrent major depressive disorder (HCC) ([facility]/HCC)- Primary Type 2 diabetes mellitus with microalbuminuria, with long-term current use of insulin (CMS/HCC) JOHN (generalized anxiety disorder) ([facility]/HCC) Generalized anxiety disorder Migraine without aura and without status migrainosus, not intractable (CMS/HCC) Irritable bowel syndrome with diarrhea Irritable bowel syndrome Gastroesophageal reflux disease without esophagitis Esophageal reflux Hot flashes due to menopause Morbid obesity (CMS/HCC) Morbid obesity group home (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 insulin (Z79.4) Obesity hypoventilation syndrome (CMS/HCC)- Primary Obesity hypoventilation syndrome Hypoxia Hypoxemia Type 2 diabetes mellitus with microalbuminuria, with long-term current use of insulin ([facility]) Right carpal tunnel syndrome Carpal tunnel syndrome Elevated blood-pressure reading without diagnosis of hypertension Elevated blood pressure reading without diagnosis of hypertension Type 2 diabetes mellitus with hyperglycemia, with long-term current use of insulin ([facility])- Primary Mild episode of recurrent major depressive disorder (HCC) ([facility]) JOHN (generalized anxiety disorder) ([facility]) Generalized anxiety disorder Carpal tunnel syndrome of left wrist Obesity hypoventilation syndrome ([facility]) Obesity hypoventilation syndrome Generalized edema Edema Irritable bowel syndrome with diarrhea Irritable bowel syndrome Gastroesophageal reflux disease without esophagitis Esophageal reflux Anxiety state ([facility]) Anxiety state, unspecified Type 2 diabetes mellitus with hyperglycemia, with long-term current use of insulin ([facility])- Primary Right carpal tunnel syndrome Carpal tunnel syndrome Chronic hypoxic respiratory failure ([facility]) Mild episode of recurrent major depressive disorder (HCC) ([facility]) JOHN (generalized anxiety disorder) ([facility]) Generalized anxiety disorder Generalized edema 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 Spondylosis of unspecified site without mention of myelopathy 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 elsewhere ([facility]) Acute pain of right knee- Primary Type 2 diabetes mellitus with microalbuminuria, with long-term current use of insulin ([facility]) Right carpal tunnel syndrome Carpal tunnel syndrome Anxiety state ([facility]) Anxiety state, unspecified documented in this encounter [facility]* Diagnosis Mild episode of recurrent major depressive disorder (HCC) ([facility])- Primary Type 2 diabetes mellitus with microalbuminuria, with long-term current use of insulin ([facility]) JOHN (generalized anxiety disorder) ([facility]) Generalized anxiety disorder Migraine without aura and without status migrainosus, not intractable ([facility]) Irritable bowel syndrome with diarrhea Irritable bowel syndrome Gastroesophageal reflux disease without esophagitis Esophageal reflux Hot flashes due to menopause Morbid obesity ([facility]) Morbid obesity 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 insulin (Z79.4) Obesity hypoventilation syndrome ([facility])- Primary Obesity hypoventilation syndrome Hypoxia Hypoxemia Type 2 diabetes mellitus with microalbuminuria, with long-term current use of insulin ([facility]) Right carpal tunnel syndrome Carpal tunnel syndrome Elevated blood-pressure reading without diagnosis of hypertension Elevated blood pressure reading without diagnosis of hypertension Type 2 diabetes mellitus with hyperglycemia, with long-term current use of insulin ([facility])- Primary Mild episode of recurrent major depressive disorder (HCC) ([facility]) JOHN (generalized anxiety disorder) ([facility]) Generalized anxiety disorder Carpal tunnel syndrome of left wrist Obesity hypoventilation syndrome ([facility]/HCC) Obesity hypoventilation syndrome Generalized edema Edema Irritable bowel syndrome with diarrhea Irritable bowel syndrome Gastroesophageal reflux disease without esophagitis Esophageal reflux Anxiety state ([facility]) Anxiety state, unspecified Type 2 diabetes mellitus with hyperglycemia, with long-term current use of insulin ([facility])- Primary Right carpal tunnel syndrome Carpal tunnel syndrome Chronic hypoxic respiratory failure ([facility]) Mild episode of recurrent major depressive disorder (HCC) ([facility]) JOHN (generalized anxiety disorder) ([facility]) Generalized anxiety disorder Generalized edema 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 Spondylosis of unspecified site without mention of myelopathy 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 elsewhere ([facility]) Acute pain of right knee- Primary Type 2 diabetes mellitus with microalbuminuria, with long-term current use of insulin ([facility]) Right carpal tunnel syndrome Carpal tunnel syndrome Status post carpal tunnel release- Primary Other postprocedural status documented in this encounter [facility]* Diagnosis Mild episode of recurrent major depressive disorder (HCC) ([facility])- Primary Type 2 diabetes mellitus with microalbuminuria, with long-term current use of insulin ([facility]) JOHN (generalized anxiety disorder) ([facility]) Generalized anxiety disorder Migraine without aura and without status migrainosus, not intractable ([facility]) Irritable bowel syndrome with diarrhea Irritable bowel syndrome Gastroesophageal reflux disease without esophagitis Esophageal reflux Hot flashes due to menopause Morbid obesity ([facility]) Morbid obesity 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 insulin (Z79.4) Obesity hypoventilation syndrome ([facility])- Primary Obesity hypoventilation syndrome Hypoxia Hypoxemia Type 2 diabetes mellitus with microalbuminuria, with long-term current use of insulin ([facility]) Right carpal tunnel syndrome Carpal tunnel syndrome Elevated blood-pressure reading without diagnosis of hypertension Elevated blood pressure reading without diagnosis of hypertension Type 2 diabetes mellitus with hyperglycemia, with long-term current use of insulin ([facility])- Primary Mild episode of recurrent major depressive disorder (HCC) ([facility]) JOHN (generalized anxiety disorder) ([facility]) Generalized anxiety disorder Carpal tunnel syndrome of left wrist Obesity hypoventilation syndrome ([facility]/HCC) Obesity hypoventilation syndrome Generalized edema Edema Irritable bowel syndrome with diarrhea Irritable bowel syndrome Gastroesophageal reflux disease without esophagitis Esophageal reflux Anxiety state ([facility]) Anxiety state, unspecified Type 2 diabetes mellitus with hyperglycemia, with long-term current use of insulin ([facility])- Primary Right carpal tunnel syndrome Carpal tunnel syndrome Chronic hypoxic respiratory failure ([facility]) Mild episode of recurrent major depressive disorder (HCC) ([facility]) JOHN (generalized anxiety disorder) ([facility]) Generalized anxiety disorder Generalized edema 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 Spondylosis of unspecified site without mention of myelopathy 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 elsewhere ([facility]) Acute pain of right knee- Primary Type 2 diabetes mellitus with microalbuminuria, with long-term current use of insulin ([facility]) Right carpal tunnel syndrome Carpal tunnel syndrome Type 2 diabetes mellitus with hyperglycemia, with long-term current use of insulin ([facility]) documented in this encounter [facility]* Diagnosis Mild episode of recurrent major depressive disorder (HCC) ([facility])- Primary Type 2 diabetes mellitus with microalbuminuria, with long-term current use of insulin ([facility]) JOHN (generalized anxiety disorder) ([facility]) Generalized anxiety disorder Migraine without aura and without status migrainosus, not intractable ([facility]) Irritable bowel syndrome with diarrhea Irritable bowel syndrome Gastroesophageal reflux disease without esophagitis Esophageal reflux Hot flashes due to menopause Morbid obesity ([facility]) Morbid obesity group home (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 insulin (Z79.4) Obesity hypoventilation syndrome ([facility])- Primary Obesity hypoventilation syndrome Hypoxia Hypoxemia Type 2 diabetes mellitus with microalbuminuria, with long-term current use of insulin ([facility]) Right carpal tunnel syndrome Carpal tunnel syndrome Elevated blood-pressure reading without diagnosis of hypertension Elevated blood pressure reading without diagnosis of hypertension Type 2 diabetes mellitus with hyperglycemia, with long-term current use of insulin ([facility])- Primary Mild episode of recurrent major depressive disorder (HCC) ([facility]) JOHN (generalized anxiety disorder) ([facility]) Generalized anxiety disorder Carpal tunnel syndrome of left wrist Obesity hypoventilation syndrome ([facility]/HCC) Obesity hypoventilation syndrome Generalized edema Edema Irritable bowel syndrome with diarrhea Irritable bowel syndrome Gastroesophageal reflux disease without esophagitis Esophageal reflux Anxiety state ([facility]) Anxiety state, unspecified Type 2 diabetes mellitus with hyperglycemia, with long-term current use of insulin ([facility])- Primary Right carpal tunnel syndrome Carpal tunnel syndrome Chronic hypoxic respiratory failure ([facility]) Mild episode of recurrent major depressive disorder (HCC) ([facility]) JOHN (generalized anxiety disorder) ([facility]) Generalized anxiety disorder Generalized edema 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 Spondylosis of unspecified site without mention of myelopathy 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 elsewhere ([facility]) Acute pain of right knee- Primary Type 2 diabetes mellitus with microalbuminuria, with long-term current use of insulin ([facility]) Right carpal tunnel syndrome Carpal tunnel syndrome Chronic hypoxic respiratory failure ([facility])- Primary Chronic heart failure with preserved ejection fraction (HFpEF) ([facility]) Type 2 diabetes mellitus with hyperglycemia, with long-term current use of insulin ([facility]) Pulmonary hypertension ([facility]) Other chronic pulmonary heart diseases Colon cancer screening Special screening for malignant neoplasms, colon Gastroesophageal reflux disease without esophagitis Esophageal reflux documented in this encounter [facility]* Diagnosis Mild episode of recurrent major depressive disorder (HCC) ([facility])- Primary Type 2 diabetes mellitus with microalbuminuria, with long-term current use of insulin ([facility]) JOHN (generalized anxiety disorder) ([facility]) Generalized anxiety disorder Migraine without aura and without status migrainosus, not intractable ([facility]) Irritable bowel syndrome with diarrhea Irritable bowel syndrome Gastroesophageal reflux disease without esophagitis Esophageal reflux Hot flashes due to menopause Morbid obesity ([facility]) Morbid obesity 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 insulin (Z79.4) Obesity hypoventilation syndrome ([facility])- Primary Obesity hypoventilation syndrome Hypoxia Hypoxemia Type 2 diabetes mellitus with microalbuminuria, with long-term current use of insulin ([facility]) Right carpal tunnel syndrome Carpal tunnel syndrome Elevated blood-pressure reading without diagnosis of hypertension Elevated blood pressure reading without diagnosis of hypertension Type 2 diabetes mellitus with hyperglycemia, with long-term current use of insulin ([facility])- Primary Mild episode of recurrent major depressive disorder (HCC) ([facility]) JOHN (generalized anxiety disorder) ([facility] Generalized anxiety disorder Carpal tunnel syndrome of left wrist Obesity hypoventilation syndrome ([facility]) Obesity hypoventilation syndrome Generalized edema Edema Irritable bowel syndrome with diarrhea Irritable bowel syndrome Gastroesophageal reflux disease without esophagitis Esophageal reflux Anxiety state ([facility]) Anxiety state, unspecified Type 2 diabetes mellitus with hyperglycemia, with long-term current use of insulin ([facility])- Primary Right carpal tunnel syndrome Carpal tunnel syndrome Chronic hypoxic respiratory failure ([facility]) Mild episode of recurrent major depressive disorder (HCC) ([facility]) JOHN (generalized anxiety disorder) ([facility]) Generalized anxiety disorder Generalized edema 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 Spondylosis of unspecified site without mention of myelopathy 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 elsewhere ([facility]) Acute pain of right knee- Primary Type 2 diabetes mellitus with microalbuminuria, with long-term current use of insulin ([facility]) Right carpal tunnel syndrome Carpal tunnel syndrome Well woman exam with routine gynecological exam Routine gynecological examination Chronic hypoxic respiratory failure ([facility])- Primary Chronic heart failure with preserved ejection fraction (HFpEF) ([facility]) Type 2 diabetes mellitus with hyperglycemia, with long-term current use of insulin ([facility]) Pulmonary hypertension ([facility]) Other chronic pulmonary heart diseases Colon cancer screening Special screening for malignant neoplasms, colon Gastroesophageal reflux disease without esophagitis Esophageal reflux documented in this encounter [facility]* Diagnosis Type 2 diabetes mellitus with hyperglycemia, with long-term current use of insulin ([facility])- Primary Carpal tunnel syndrome of left wrist Anxiety state ([facility]) Anxiety state, unspecified documented in this encounter [facility]* Diagnosis Mild episode of recurrent major depressive disorder (HCC) ([facility])- Primary Type 2 diabetes mellitus with microalbuminuria, with long-term current use of insulin ([facility]) JOHN (generalized anxiety disorder) ([facility]) Generalized anxiety disorder Migraine without aura and without status migrainosus, not intractable ([facility]) Irritable bowel syndrome with diarrhea Irritable bowel syndrome Gastroesophageal reflux disease without esophagitis Esophageal reflux Hot flashes due to menopause Morbid obesity ([facility]) Morbid obesity 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 insulin (Z79.4) Obesity hypoventilation syndrome ([facility])- Primary Obesity hypoventilation syndrome Hypoxia Hypoxemia Type 2 diabetes mellitus with microalbuminuria, with long-term current use of insulin ([facility]) Right carpal tunnel syndrome Carpal tunnel syndrome Elevated blood-pressure reading without diagnosis of hypertension Elevated blood pressure reading without diagnosis of hypertension Type 2 diabetes mellitus with hyperglycemia, with long-term current use of insulin ([facility]CC)- Primary Mild episode of recurrent major depressive disorder (HCC) ([facility]) JOHN (generalized anxiety disorder) ([facility]) Generalized anxiety disorder Carpal tunnel syndrome of left wrist Obesity hypoventilation syndrome (CMS/HCC) Obesity hypoventilation syndrome Generalized edema Edema Irritable bowel syndrome with diarrhea Irritable bowel syndrome Gastroesophageal reflux disease without esophagitis Esophageal reflux Anxiety state ([facility]) Anxiety state, unspecified Type 2 diabetes mellitus with hyperglycemia, with long-term current use of insulin ([facility]/HCC)- Primary Right carpal tunnel syndrome Carpal tunnel syndrome Chronic hypoxic respiratory failure (CMS/HCC) Mild episode of recurrent major depressive disorder (HCC) ([facility]) JOHN (generalized anxiety disorder) ([facility]) Generalized anxiety disorder Generalized edema 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 Spondylosis of unspecified site without mention of myelopathy 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 elsewhere ([facility]) Acute pain of right knee- Primary Type 2 diabetes mellitus with microalbuminuria, with long-term current use of insulin ([facility]) Right carpal tunnel syndrome Carpal tunnel syndrome Chronic hypoxic respiratory failure ([facility])- Primary Chronic heart failure with preserved ejection fraction (HFpEF) ([facility]) Type 2 diabetes mellitus with hyperglycemia, with long-term current use of insulin ([facility]) Pulmonary hypertension ([facility]) Other chronic pulmonary heart diseases Colon cancer screening Special screening for malignant neoplasms, colon Gastroesophageal reflux disease without esophagitis Esophageal reflux Carpal tunnel syndrome of left wrist documented in this encounter [facility]* Diagnosis Encounter to discuss test results Other specified counseling documented in this encounter [facility]* Diagnosis Type 2 diabetes mellitus with hyperglycemia, with long-term current use of insulin ([facility])- Primary Right carpal tunnel syndrome Carpal tunnel syndrome Chronic hypoxic respiratory failure ([facility]) Mild episode of recurrent major depressive disorder (HCC) ([facility]) JOHN (generalized anxiety disorder) ([facility]) Generalized anxiety disorder Generalized edema 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 Spondylosis of unspecified site without mention of myelopathy 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 elsewhere ([facility]) documented in this encounter [facility]* Diagnosis Acute pain of right knee- Primary Type 2 diabetes mellitus with microalbuminuria, with long-term current use of insulin ([facility]) Right carpal tunnel syndrome Carpal tunnel syndrome documented in this encounter [facility]* Diagnosis Right wrist pain Pain in joint, forearm Carpal tunnel syndrome, right Carpal tunnel syndrome documented in this encounter [facility]* Diagnosis Mild episode of recurrent major depressive disorder (HCC) ([facility]/HCC)- Primary Type 2 diabetes mellitus with microalbuminuria, with long-term current use of insulin ([facility]) JOHN (generalized anxiety disorder) ([facility]) Generalized anxiety disorder Migraine without aura and without status migrainosus, not intractable ([facility]) Irritable bowel syndrome with diarrhea Irritable bowel syndrome Gastroesophageal reflux disease without esophagitis Esophageal reflux Hot flashes due to menopause Morbid obesity (CMS/HCC) Morbid obesity group home (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 insulin (Z79.4) Obesity hypoventilation syndrome ([facility])- Primary Obesity hypoventilation syndrome Hypoxia Hypoxemia Type 2 diabetes mellitus with microalbuminuria, with long-term current use of insulin ([facility]) Right carpal tunnel syndrome Carpal tunnel syndrome Elevated blood-pressure reading without diagnosis of hypertension Elevated blood pressure reading without diagnosis of hypertension Type 2 diabetes mellitus with hyperglycemia, with long-term current use of insulin ([facility])- Primary Mild episode of recurrent major depressive disorder (HCC) ([facility]/HCC) JOHN (generalized anxiety disorder) ([facility]) Generalized anxiety disorder Carpal tunnel syndrome of left wrist Obesity hypoventilation syndrome ([facility]) Obesity hypoventilation syndrome Generalized edema Edema Irritable bowel syndrome with diarrhea Irritable bowel syndrome Gastroesophageal reflux disease without esophagitis Esophageal reflux Anxiety state ([facility]) Anxiety state, unspecified Type 2 diabetes mellitus with hyperglycemia, with long-term current use of insulin ([facility])- Primary Right carpal tunnel syndrome Carpal tunnel syndrome Chronic hypoxic respiratory failure ([facility]) Mild episode of recurrent major depressive disorder (HCC) (CMS/HCC) JOHN (generalized anxiety disorder) ([facility]) Generalized anxiety disorder Generalized edema 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 Spondylosis of unspecified site without mention of myelopathy 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 elsewhere ([facility]) Acute pain of right knee- Primary Type 2 diabetes mellitus with microalbuminuria, with long-term current use of insulin ([facility]) Right carpal tunnel syndrome Carpal tunnel syndrome Chronic hypoxic respiratory failure ([facility])- Primary Chronic heart failure with preserved ejection fraction (HFpEF) (CMS/HCC) Type 2 diabetes mellitus with hyperglycemia, with long-term current use of insulin (CMS/HCC) Pulmonary hypertension (CMS/HCC) Other chronic pulmonary heart diseases Colon cancer screening Special screening for malignant neoplasms, colon Gastroesophageal reflux disease without esophagitis Esophageal reflux Mild episode of recurrent major depressive disorder (HCC) (CMS/HCC) documented in this encounter [facility] HealthcareEvaluation note* Diagnosis Mild episode of recurrent major depressive disorder (HCC) (CMS/HCC)- Primary Type 2 diabetes mellitus with microalbuminuria, with long-term current use of insulin (CMS/HCC) JOHN (generalized anxiety disorder) ([facility]) Generalized anxiety disorder Migraine without aura and without status migrainosus, not intractable (CMS/HCC) Irritable bowel syndrome with diarrhea Irritable bowel syndrome Gastroesophageal reflux disease without esophagitis Esophageal reflux Hot flashes due to menopause Morbid obesity (CMS/[facility]) Morbid obesity group home (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 insulin (Z79.4) Obesity hypoventilation syndrome ([facility])- Primary Obesity hypoventilation syndrome Hypoxia Hypoxemia Type 2 diabetes mellitus with microalbuminuria, with long-term current use of insulin ([facility]) Right carpal tunnel syndrome Carpal tunnel syndrome Elevated blood-pressure reading without diagnosis of hypertension Elevated blood pressure reading without diagnosis of hypertension Type 2 diabetes mellitus with hyperglycemia, with long-term current use of insulin ([facility])- Primary Mild episode of recurrent major depressive disorder (HCC) ([facility]/HCC) JOHN (generalized anxiety disorder) ([facility]) Generalized anxiety disorder Carpal tunnel syndrome of left wrist Obesity hypoventilation syndrome ([facility]/HCC) Obesity hypoventilation syndrome Generalized edema Edema Irritable bowel syndrome with diarrhea Irritable bowel syndrome Gastroesophageal reflux disease without esophagitis Esophageal reflux Anxiety state ([facility]) Anxiety state, unspecified Type 2 diabetes mellitus with hyperglycemia, with long-term current use of insulin ([facility])- Primary Right carpal tunnel syndrome Carpal tunnel syndrome Chronic hypoxic respiratory failure (CMS/[facility]) Mild episode of recurrent major depressive disorder (HCC) ([facility]/HCC) JOHN (generalized anxiety disorder) ([facility]) Generalized anxiety disorder Generalized edema 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 Spondylosis of unspecified site without mention of myelopathy 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 elsewhere ([facility]) Acute pain of right knee- Primary Type 2 diabetes mellitus with microalbuminuria, with long-term current use of insulin ([facility]) Right carpal tunnel syndrome Carpal tunnel syndrome Chronic hypoxic respiratory failure (CMS/HCC)- Primary Chronic heart failure with preserved ejection fraction (HFpEF) ([facility]) Type 2 diabetes mellitus with hyperglycemia, with long-term current use of insulin ([facility]/HCC) Pulmonary hypertension (CMS/HCC) Other chronic pulmonary heart diseases Colon cancer screening Special screening for malignant neoplasms, colon Gastroesophageal reflux disease without esophagitis Esophageal reflux Type 2 diabetes mellitus with microalbuminuria, with long-term current use of insulin ([facility]/HCC) documented in this encounter [facility] HealthcareEvaluation note* Diagnosis Mild episode of recurrent major depressive disorder (HCC) ([facility])- Primary Type 2 diabetes mellitus with microalbuminuria, with long-term current use of insulin ([facility]) JOHN (generalized anxiety disorder) ([facility]) Generalized anxiety disorder Migraine without aura and without status migrainosus, not intractable ([facility]) Irritable bowel syndrome with diarrhea Irritable bowel syndrome Gastroesophageal reflux disease without esophagitis Esophageal reflux Hot flashes due to menopause Morbid obesity ([facility]) Morbid obesity group home (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 insulin (Z79.4) Obesity hypoventilation syndrome ([facility])- Primary Obesity hypoventilation syndrome Hypoxia Hypoxemia Type 2 diabetes mellitus with microalbuminuria, with long-term current use of insulin ([facility]) Right carpal tunnel syndrome Carpal tunnel syndrome Elevated blood-pressure reading without diagnosis of hypertension Elevated blood pressure reading without diagnosis of hypertension Type 2 diabetes mellitus with hyperglycemia, with long-term current use of insulin ([facility])- Primary Mild episode of recurrent major depressive disorder (HCC) ([facility]) JOHN (generalized anxiety disorder) ([facility]) Generalized anxiety disorder Carpal tunnel syndrome of left wrist Obesity hypoventilation syndrome ([facility]/HCC) Obesity hypoventilation syndrome Generalized edema Edema Irritable bowel syndrome with diarrhea Irritable bowel syndrome Gastroesophageal reflux disease without esophagitis Esophageal reflux Anxiety state ([facility]) Anxiety state, unspecified Type 2 diabetes mellitus with hyperglycemia, with long-term current use of insulin ([facility])- Primary Right carpal tunnel syndrome Carpal tunnel syndrome Chronic hypoxic respiratory failure ([facility]) Mild episode of recurrent major depressive disorder (HCC) ([facility]) JOHN (generalized anxiety disorder) ([facility] Generalized anxiety disorder Generalized edema 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 Spondylosis of unspecified site without mention of myelopathy 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 elsewhere ([facility]/HCC) Acute pain of right knee- Primary Type 2 diabetes mellitus with microalbuminuria, with long-term current use of insulin ([facility]) Right carpal tunnel syndrome Carpal tunnel syndrome Chronic hypoxic respiratory failure ([facility]/HCC)- Primary Chronic heart failure with preserved ejection fraction (HFpEF) ([facility]) Type 2 diabetes mellitus with hyperglycemia, with long-term current use of insulin ([facility]) Pulmonary hypertension ([facility]) Other chronic pulmonary heart diseases Colon cancer screening Special screening for malignant neoplasms, colon Gastroesophageal reflux disease without esophagitis Esophageal reflux Type 2 diabetes mellitus with hyperglycemia, with long-term current use of insulin ([facility]) documented in this encounter [facility] HealthcareEvaluation note* Diagnosis Dyspnea on exertion- Primary Other dyspnea and respiratory abnormality Chronic heart failure with preserved ejection fraction ([facility]-HCC) Type 2 diabetes mellitus with hyperglycemia, with long-term current use of insulin ([facility]) documented in this encounter [facility] System[facility]* Diagnosis Mild episode of recurrent major depressive disorder (HCC) ([facility])- Primary Type 2 diabetes mellitus with microalbuminuria, with long-term current use of insulin ([facility]) JOHN (generalized anxiety disorder) ([facility]) Generalized anxiety disorder Migraine without aura and without status migrainosus, not intractable ([facility]) Irritable bowel syndrome with diarrhea Irritable bowel syndrome Gastroesophageal reflux disease without esophagitis Esophageal reflux Hot flashes due to menopause Morbid obesity ([facility]) Morbid obesity 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 insulin (Z79.4) Obesity hypoventilation syndrome ([facility])- Primary Obesity hypoventilation syndrome Hypoxia Hypoxemia Type 2 diabetes mellitus with microalbuminuria, with long-term current use of insulin ([facility]) Right carpal tunnel syndrome Carpal tunnel syndrome Elevated blood-pressure reading without diagnosis of hypertension Elevated blood pressure reading without diagnosis of hypertension Type 2 diabetes mellitus with hyperglycemia, with long-term current use of insulin ([facility])- Primary Mild episode of recurrent major depressive disorder (HCC) ([facility]) JOHN (generalized anxiety disorder) ([facility]) Generalized anxiety disorder Carpal tunnel syndrome of left wrist Obesity hypoventilation syndrome ([facility]) Obesity hypoventilation syndrome Generalized edema Edema Irritable bowel syndrome with diarrhea Irritable bowel syndrome Gastroesophageal reflux disease without esophagitis Esophageal reflux Anxiety state ([facility]) Anxiety state, unspecified Type 2 diabetes mellitus with hyperglycemia, with long-term current use of insulin ([facility])- Primary Right carpal tunnel syndrome Carpal tunnel syndrome Chronic hypoxic respiratory failure ([facility]) Mild episode of recurrent major depressive disorder (HCC) ([facility]) JOHN (generalized anxiety disorder) ([facility] Generalized anxiety disorder Generalized edema 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 Spondylosis of unspecified site without mention of myelopathy 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 elsewhere ([facility]) Acute pain of right knee- Primary Type 2 diabetes mellitus with microalbuminuria, with long-term current use of insulin ([facility]) Right carpal tunnel syndrome Carpal tunnel syndrome Chronic hypoxic respiratory failure ([facility])- Primary Chronic heart failure with preserved ejection fraction (HFpEF) ([facility]) Type 2 diabetes mellitus with hyperglycemia, with long-term current use of insulin ([facility]) Pulmonary hypertension ([facility]) Other chronic pulmonary heart diseases Colon cancer screening Special screening for malignant neoplasms, colon Gastroesophageal reflux disease without esophagitis Esophageal reflux Diabetic polyneuropathy associated with type 2 diabetes mellitus ([facility])- Primary Neuritis Unspecified neuralgia, neuritis, and radiculitis [facility] Diagnosis Cavitary lesion of lung documented in this encounter [facility]* Diagnosis Mediastinal lymphadenopathy- Primary Enlargement of lymph nodes documented in this encounter [facility] System[facility] note* Diagnosis Mediastinal lymphadenopathy- Primary Enlargement of lymph nodes Pulmonary nodule Other diseases of lung, not elsewhere classified Morbid obesity ([facility]) Morbid obesity documented in this encounter [facility]* Diagnosis Type 2 diabetes mellitus with hyperglycemia, with long-term current use of insulin ([facility])- Primary Hyperglycemia Other abnormal glucose Acute cystitis without hematuria Hypoxia Hypoxemia Hyperglycemia Other abnormal glucose Obstructive sleep apnea syndrome Obstructive sleep apnea (adult) (pediatric) Severe obesity (BMI >= 40) ([facility]) Hyperlipidemia associated with type 2 diabetes mellitus ([facility]) Acute cystitis without hematuria documented in this encounter [facility] note* Diagnosis Chronic hypoxic respiratory failure ([facility])- Primary Obstructive sleep apnea syndrome Obstructive sleep apnea (adult) (pediatric) Pulmonary nodule Other diseases of lung, not elsewhere classified Moderate persistent asthma without complication documented in this encounter [facility] System[facility] note* Diagnosis Moderate persistent asthma without complication documented in this encounter [facility] note* Diagnosis Mediastinal lymphadenopathy- Primary Enlargement of lymph nodes Hypoxia Hypoxemia Pulmonary nodule Other diseases of lung, not elsewhere classified Severe obesity (BMI >= 40) ([facility]) Dyspnea on exertion Other dyspnea and respiratory abnormality documented in this encounter [facility]* Diagnosis Dyspnea on exertion- Primary Other dyspnea and respiratory abnormality Chronic hypoxic respiratory failure ([facility]-H[facility]) Moderate persistent asthma without complication documented in this encounter [facility]* Diagnosis Chronic hypoxic respiratory failure ([facility]-H[facility])- Primary SOB (shortness of breath) Shortness of breath Hypoxia Hypoxemia documented in this encounter [facility] note* Diagnosis JOSE M (obstructive sleep apnea)- Primary Obstructive sleep apnea (adult) (pediatric) Chronic hypoxic respiratory failure ([facility]) Severe obesity (BMI >= 40) ([facility]) documented in this encounter [facility]* Diagnosis Chronic hypoxic respiratory failure ([facility]-H[facility])- Primary SOB (shortness of breath) Shortness of breath Hypoxia Hypoxemia documented in this encounter [facility]* Diagnosis Moderate persistent asthma without complication- Primary Obstructive sleep apnea syndrome Obstructive sleep apnea (adult) (pediatric) Pulmonary nodule Other diseases of lung, not elsewhere classified Chronic hypoxic respiratory failure ([facility]) documented in this encounter [facility]* Diagnosis Dyspnea on exertion- Primary Other dyspnea and respiratory abnormality Pulmonary hypertension ([facility]) Other chronic pulmonary heart diseases documented in this encounter [facility] SystemEvaluation note* Diagnosis JOSE M (obstructive sleep apnea) Obstructive sleep apnea (adult) (pediatric) Chronic hypoxic respiratory failure ([facility]) Severe obesity (BMI >= 40) ([facility]) documented in this encounter [facility] System[facility]* Diagnosis Mild episode of recurrent major depressive disorder (HCC) ([facility])- Primary Type 2 diabetes mellitus with microalbuminuria, with long-term current use of insulin ([facility]) JOHN (generalized anxiety disorder) ([facility]) Generalized anxiety disorder Migraine without aura and without status migrainosus, not intractable ([facility]) Irritable bowel syndrome with diarrhea Irritable bowel syndrome Gastroesophageal reflux disease without esophagitis Esophageal reflux Hot flashes due to menopause Morbid obesity ([facility]/HCC) Morbid obesity 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 insulin (Z79.4) Obesity hypoventilation syndrome ([facility]/HCC)- Primary Obesity hypoventilation syndrome Hypoxia Hypoxemia Type 2 diabetes mellitus with microalbuminuria, with long-term current use of insulin ([facility]/HCC) Right carpal tunnel syndrome Carpal tunnel syndrome Elevated blood-pressure reading without diagnosis of hypertension Elevated blood pressure reading without diagnosis of hypertension Type 2 diabetes mellitus with hyperglycemia, with long-term current use of insulin ([facility]/HCC)- Primary Mild episode of recurrent major depressive disorder (HCC) (CMS/[facility]) JOHN (generalized anxiety disorder) ([facility]) Generalized anxiety disorder Carpal tunnel syndrome of left wrist Obesity hypoventilation syndrome ([facility]/HCC) Obesity hypoventilation syndrome Generalized edema Edema Irritable bowel syndrome with diarrhea Irritable bowel syndrome Gastroesophageal reflux disease without esophagitis Esophageal reflux Anxiety state ([facility]) Anxiety state, unspecified Type 2 diabetes mellitus with hyperglycemia, with long-term current use of insulin ([facility])- Primary Right carpal tunnel syndrome Carpal tunnel syndrome Chronic hypoxic respiratory failure ([facility]) Mild episode of recurrent major depressive disorder (HCC) ([facility]) JOHN (generalized anxiety disorder) ([facility] Generalized anxiety disorder Generalized edema 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 Spondylosis of unspecified site without mention of myelopathy 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 elsewhere ([facility]) Acute pain of right knee- Primary Type 2 diabetes mellitus with microalbuminuria, with long-term current use of insulin ([facility]) Right carpal tunnel syndrome Carpal tunnel syndrome Chronic hypoxic respiratory failure ([facility])- Primary Chronic heart failure with preserved ejection fraction (HFpEF) ([facility]) Type 2 diabetes mellitus with hyperglycemia, with long-term current use of insulin ([facility]) Pulmonary hypertension ([facility]) Other chronic pulmonary heart diseases Colon cancer screening Special screening for malignant neoplasms, colon Gastroesophageal reflux disease without esophagitis Esophageal reflux Dehydration- Primary Nausea and vomiting, unspecified vomiting type Type 2 diabetes mellitus with hyperglycemia, with long-term current use of insulin ([facility]) Class 3 severe obesity due to excess calories with serious comorbidity and body mass index (BMI) of40.0 to 44.9 in adult ([facility]) Chronic hypoxic respiratory failure ([facility]) Chronic heart failure with preserved ejection fraction (HFpEF) ([facility]) documented in this encounter [facility] HealthcareEvaluation note* Diagnosis Mild episode of recurrent major depressive disorder (HCC) ([facility])- Primary Type 2 diabetes mellitus with microalbuminuria, with long-term current use of insulin ([facility]) JOHN (generalized anxiety disorder) ([facility]) Generalized anxiety disorder Migraine without aura and without status migrainosus, not intractable ([facility]) Irritable bowel syndrome with diarrhea Irritable bowel syndrome Gastroesophageal reflux disease without esophagitis Esophageal reflux Hot flashes due to menopause Morbid obesity ([facility]) Morbid obesity 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 insulin (Z79.4) Obesity hypoventilation syndrome ([facility])- Primary Obesity hypoventilation syndrome Hypoxia Hypoxemia Type 2 diabetes mellitus with microalbuminuria, with long-term current use of insulin ([facility]) Right carpal tunnel syndrome Carpal tunnel syndrome Elevated blood-pressure reading without diagnosis of hypertension Elevated blood pressure reading without diagnosis of hypertension Type 2 diabetes mellitus with hyperglycemia, with long-term current use of insulin ([facility])- Primary Mild episode of recurrent major depressive disorder (HCC) ([facility]) JOHN (generalized anxiety disorder) ([facility]) Generalized anxiety disorder Carpal tunnel syndrome of left wrist Obesity hypoventilation syndrome ([facility]) Obesity hypoventilation syndrome Generalized edema Edema Irritable bowel syndrome with diarrhea Irritable bowel syndrome Gastroesophageal reflux disease without esophagitis Esophageal reflux Anxiety state ([facility]) Anxiety state, unspecified Type 2 diabetes mellitus with hyperglycemia, with long-term current use of insulin ([facility])- Primary Right carpal tunnel syndrome Carpal tunnel syndrome Chronic hypoxic respiratory failure ([facility]) Mild episode of recurrent major depressive disorder (HCC) ([facility]) JOHN (generalized anxiety disorder) ([facility]) Generalized anxiety disorder Generalized edema 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 Spondylosis of unspecified site without mention of myelopathy 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 elsewhere ([facility]) Acute pain of right knee- Primary Type 2 diabetes mellitus with microalbuminuria, with long-term current use of insulin ([facility]) Right carpal tunnel syndrome Carpal tunnel syndrome Chronic hypoxic respiratory failure ([facility])- Primary Chronic heart failure with preserved ejection fraction (HFpEF) ([facility]) Type 2 diabetes mellitus with hyperglycemia, with long-term current use of insulin ([facility]) Pulmonary hypertension ([facility]) Other chronic pulmonary heart diseases Colon cancer screening Special screening for malignant neoplasms, colon Gastroesophageal reflux disease without esophagitis Esophageal reflux Dehydration- Primary Nausea and vomiting, unspecified vomiting type Type 2 diabetes mellitus with hyperglycemia, with long-term current use of insulin ([facility]) Class 3 severe obesity due to excess calories with serious comorbidity and body mass index (BMI) of40.0 to 44.9 in adult ([facility]) Chronic hypoxic respiratory failure ([facility]) Chronic heart failure with preserved ejection fraction (HFpEF) ([facility]) Type 2 diabetes mellitus with hyperglycemia, with long-term current use of insulin ([facility])- Primary Chronic heart failure with preserved ejection fraction (HFpEF) ([facility]) Mild episode of recurrent major depressive disorder (HCC) ([facility]) JOHN (generalized anxiety disorder) ([facility]) Generalized anxiety disorder Gastroesophageal reflux disease without esophagitis Esophageal reflux Class 3 severe obesity due to excess calories with serious comorbidity and body mass index (BMI) of40.0 to 44.9 in adult ([facility]) documented in this encounter [facility] HealthcareEvaluation note* Diagnosis Obstructive sleep apnea syndrome- Primary Obstructive sleep apnea (adult) (pediatric) Noncompliance with CPAP treatment Chronic hypoxic respiratory failure, on home oxygen therapy ([facility]) Obesity, Class III, BMI 40-49.9 (morbid obesity) ([facility]) documented in this encounter [facility] SystemEvaluation note* Diagnosis Chronic heart failure with preserved ejection fraction ([facility])- Primary Primary hypertension Unspecified essential hypertension Dyspnea on exertion Other dyspnea and respiratory abnormality Hyperlipidemia associated with type 2 diabetes mellitus ([facility]) documented in this encounter [facility] SystemEvaluation note* Diagnosis Mild episode of recurrent major depressive disorder (HCC) ([facility])- Primary Type 2 diabetes mellitus with microalbuminuria, with long-term current use of insulin ([facility]) JOHN (generalized anxiety disorder) ([facility]) Generalized anxiety disorder Migraine without aura and without status migrainosus, not intractable ([facility]) Irritable bowel syndrome with diarrhea Irritable bowel syndrome Gastroesophageal reflux disease without esophagitis Esophageal reflux Hot flashes due to menopause Morbid obesity ([facility]) Morbid obesity 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 insulin (Z79.4) Obesity hypoventilation syndrome ([facility])- Primary Obesity hypoventilation syndrome Hypoxia Hypoxemia Type 2 diabetes mellitus with microalbuminuria, with long-term current use of insulin ([facility]) Right carpal tunnel syndrome Carpal tunnel syndrome Elevated blood-pressure reading without diagnosis of hypertension Elevated blood pressure reading without diagnosis of hypertension Type 2 diabetes mellitus with hyperglycemia, with long-term current use of insulin ([facility])- Primary Mild episode of recurrent major depressive disorder (HCC) ([facility]) JOHN (generalized anxiety disorder) ([facility]) Generalized anxiety disorder Carpal tunnel syndrome of left wrist Obesity hypoventilation syndrome ([facility]) Obesity hypoventilation syndrome Generalized edema Edema Irritable bowel syndrome with diarrhea Irritable bowel syndrome Gastroesophageal reflux disease without esophagitis Esophageal reflux Anxiety state ([facility]) Anxiety state, unspecified Type 2 diabetes mellitus with hyperglycemia, with long-term current use of insulin ([facility])- Primary Right carpal tunnel syndrome Carpal tunnel syndrome Chronic hypoxic respiratory failure ([facility]) Mild episode of recurrent major depressive disorder (HCC) ([facility]) JOHN (generalized anxiety disorder) ([facility]) Generalized anxiety disorder Generalized edema 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 Spondylosis of unspecified site without mention of myelopathy 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 elsewhere ([facility]) Acute pain of right knee- Primary Type 2 diabetes mellitus with microalbuminuria, with long-term current use of insulin ([facility]) Right carpal tunnel syndrome Carpal tunnel syndrome Chronic hypoxic respiratory failure ([facility])- Primary Chronic heart failure with preserved ejection fraction (HFpEF) ([facility]) Type 2 diabetes mellitus with hyperglycemia, with long-term current use of insulin ([facility]) Pulmonary hypertension ([facility]) Other chronic pulmonary heart diseases Colon cancer screening Special screening for malignant neoplasms, colon Gastroesophageal reflux disease without esophagitis Esophageal reflux Dehydration- Primary Nausea and vomiting, unspecified vomiting type Type 2 diabetes mellitus with hyperglycemia, with long-term current use of insulin ([facility]) Class 3 severe obesity due to excess calories with serious comorbidity and body mass index (BMI) of40.0 to 44.9 in adult Chronic hypoxic respiratory failure ([facility]) Chronic heart failure with preserved ejection fraction (HFpEF) ([facility]) Type 2 diabetes mellitus with hyperglycemia, with long-term current use of insulin ([facility])- Primary Chronic heart failure with preserved ejection fraction (HFpEF) ([facility]) Mild episode of recurrent major depressive disorder (HCC) ([facility]) JOHN (generalized anxiety disorder) ([facility]) Generalized anxiety disorder Gastroesophageal reflux disease without esophagitis Esophageal reflux Class 3 severe obesity due to excess calories with serious comorbidity and body mass index (BMI) of40.0 to 44.9 in adult Type 2 diabetes mellitus with hyperglycemia, with long-term current use of insulin ([facility])- Primary Benign essential hypertension ([facility]) Essential hypertension, benign Mild episode of recurrent major depressive disorder (HCC) ([facility]) JOHN (generalized anxiety disorder) ([facility]) Generalized anxiety disorder Chronic heart failure with preserved ejection fraction (HFpEF) ([facility]) Type 2 diabetes mellitus with microalbuminuria, with long-term current use of insulin ([facility]) Class 3 severe obesity due to excess calories with serious comorbidity and body mass index (BMI) of40.0 to 44.9 in adult Encounter for long-term (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 medications Encounter for long-term (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 other medications Dyslipidemia ([facility]) Other and unspecified hyperlipidemia Primary osteoarthritis of both knees documented in this encounter [facility] HealthcareEvaluation note* Diagnosis Mild episode of recurrent major depressive disorder- Primary Type 2 diabetes mellitus with microalbuminuria, with long-term current use of insulin ([facility]) JOHN (generalized anxiety disorder) Generalized anxiety disorder Migraine without aura and without status migrainosus, not intractable Irritable bowel syndrome with diarrhea Irritable bowel syndrome Gastroesophageal reflux disease without esophagitis Esophageal reflux Hot flashes due to menopause Morbid obesity ([facility]) Morbid obesity 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 insulin (Z79.4) Obesity hypoventilation syndrome ([facility])- Primary Obesity hypoventilation syndrome Hypoxia Hypoxemia Type 2 diabetes mellitus with microalbuminuria, with long-term current use of insulin ([facility]) Right carpal tunnel syndrome Carpal tunnel syndrome Elevated blood-pressure reading without diagnosis of hypertension Elevated blood pressure reading without diagnosis of hypertension Type 2 diabetes mellitus with hyperglycemia, with long-term current use of insulin ([facility])- Primary Mild episode of recurrent major depressive disorder JOHN (generalized anxiety disorder) Generalized anxiety disorder Carpal tunnel syndrome of left wrist Obesity hypoventilation syndrome ([facility]) Obesity hypoventilation syndrome Generalized edema Edema Irritable bowel syndrome with diarrhea Irritable bowel syndrome Gastroesophageal reflux disease without esophagitis Esophageal reflux Anxiety state Anxiety state, unspecified Type 2 diabetes mellitus with hyperglycemia, with long-term current use of insulin ([facility])- Primary Right carpal tunnel syndrome Carpal tunnel syndrome Chronic hypoxic respiratory failure ([facility]) Mild episode of recurrent major depressive disorder JOHN (generalized anxiety disorder) Generalized anxiety disorder Generalized edema 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 Spondylosis of unspecified site without mention of myelopathy 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 elsewhere ([facility]) Acute pain of right knee- Primary Type 2 diabetes mellitus with microalbuminuria, with long-term current use of insulin ([facility]) Right carpal tunnel syndrome Carpal tunnel syndrome Chronic hypoxic respiratory failure (HCC)- Primary Chronic heart failure with preserved ejection fraction (HFpEF) ([facility]) Type 2 diabetes mellitus with hyperglycemia, with long-term current use of insulin ([facility]) Pulmonary hypertension ([facility]) Other chronic pulmonary heart diseases Colon cancer screening Special screening for malignant neoplasms, colon Gastroesophageal reflux disease without esophagitis Esophageal reflux Dehydration- Primary Nausea and vomiting, unspecified vomiting type Type 2 diabetes mellitus with hyperglycemia, with long-term current use of insulin ([facility]) Class 3 severe obesity due to excess calories with serious comorbidity and body mass index (BMI) of40.0 to 44.9 in adult ([facility]) Chronic hypoxic respiratory failure ([facility]) Chronic heart failure with preserved ejection fraction (HFpEF) ([facility]) Type 2 diabetes mellitus with hyperglycemia, with long-term current use of insulin ([facility])- Primary Chronic heart failure with preserved ejection fraction (HFpEF) ([facility]) Mild episode of recurrent major depressive disorder JOHN (generalized anxiety disorder) Generalized anxiety disorder Gastroesophageal reflux disease without esophagitis Esophageal reflux Class 3 severe obesity due to excess calories with serious comorbidity and body mass index (BMI) of40.0 to 44.9 in adult ([facility]) Type 2 diabetes mellitus with hyperglycemia, with long-term current use of insulin ([facility])- Primary Benign essential hypertension Essential hypertension, benign Mild episode of recurrent major depressive disorder JOHN (generalized anxiety disorder) Generalized anxiety disorder Chronic heart failure with preserved ejection fraction (HFpEF) ([facility]) Type 2 diabetes mellitus with microalbuminuria, with long-term current use of insulin ([facility]) Class 3 severe obesity due to excess calories with serious comorbidity and body mass index (BMI) of40.0 to 44.9 in adult ([facility]) Encounter for long-term (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 medications Encounter for long-term (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 other medications Dyslipidemia Other and unspecified hyperlipidemia Primary osteoarthritis of both knees Internal derangement of left knee- Primary Acute pain of left knee documented in this encounter [facility] HealthcareEvaluation note* Diagnosis Type 2 diabetes mellitus with hyperglycemia, with long-term current use of insulin ([facility])- Primary documented in this encounter [facility] SystemEvaluation note* Diagnosis Moderate persistent asthma without complication- Primary Chronic hypoxic respiratory failure ([facility]) documented in this encounter [facility] SystemEvaluation note* Diagnosis Mild episode of recurrent major depressive disorder- Primary Type 2 diabetes mellitus with microalbuminuria, with long-term current use of insulin ([facility]) JOHN (generalized anxiety disorder) Generalized anxiety disorder Migraine without aura and without status migrainosus, not intractable Irritable bowel syndrome with diarrhea Irritable bowel syndrome Gastroesophageal reflux disease without esophagitis Esophageal reflux Hot flashes due to menopause Morbid obesity ([facility]) Morbid obesity 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 insulin (Z79.4) Obesity hypoventilation syndrome ([facility])- Primary Obesity hypoventilation syndrome Hypoxia Hypoxemia Type 2 diabetes mellitus with microalbuminuria, with long-term current use of insulin ([facility]) Right carpal tunnel syndrome Carpal tunnel syndrome Elevated blood-pressure reading without diagnosis of hypertension Elevated blood pressure reading without diagnosis of hypertension Type 2 diabetes mellitus with hyperglycemia, with long-term current use of insulin ([facility])- Primary Mild episode of recurrent major depressive disorder JOHN (generalized anxiety disorder) Generalized anxiety disorder Carpal tunnel syndrome of left wrist Obesity hypoventilation syndrome ([facility]) Obesity hypoventilation syndrome Generalized edema Edema Irritable bowel syndrome with diarrhea Irritable bowel syndrome Gastroesophageal reflux disease without esophagitis Esophageal reflux Anxiety state Anxiety state, unspecified Type 2 diabetes mellitus with hyperglycemia, with long-term current use of insulin ([facility])- Primary Right carpal tunnel syndrome Carpal tunnel syndrome Chronic hypoxic respiratory failure ([facility]) Mild episode of recurrent major depressive disorder JOHN (generalized anxiety disorder) Generalized anxiety disorder Generalized edema 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 Spondylosis of unspecified site without mention of myelopathy 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 elsewhere ([facility]) Acute pain of right knee- Primary Type 2 diabetes mellitus with microalbuminuria, with long-term current use of insulin ([facility]) Right carpal tunnel syndrome Carpal tunnel syndrome Chronic hypoxic respiratory failure ([facility])- Primary Chronic heart failure with preserved ejection fraction (HFpEF) ([facility]) Type 2 diabetes mellitus with hyperglycemia, with long-term current use of insulin ([facility]) Pulmonary hypertension ([facility]) Other chronic pulmonary heart diseases Colon cancer screening Special screening for malignant neoplasms, colon Gastroesophageal reflux disease without esophagitis Esophageal reflux Dehydration- Primary Nausea and vomiting, unspecified vomiting type Type 2 diabetes mellitus with hyperglycemia, with long-term current use of insulin ([facility]) Class 3 severe obesity due to excess calories with serious comorbidity and body mass index (BMI) of40.0 to 44.9 in adult ([facility]) Chronic hypoxic respiratory failure (HCC) Chronic heart failure with preserved ejection fraction (HFpEF) ([facility]) Type 2 diabetes mellitus with hyperglycemia, with long-term current use of insulin ([facility])- Primary Chronic heart failure with preserved ejection fraction (HFpEF) ([facility]) Mild episode of recurrent major depressive disorder JOHN (generalized anxiety disorder) Generalized anxiety disorder Gastroesophageal reflux disease without esophagitis Esophageal reflux Class 3 severe obesity due to excess calories with serious comorbidity and body mass index (BMI) of40.0 to 44.9 in adult ([facility]) Type 2 diabetes mellitus with hyperglycemia, with long-term current use of insulin ([facility])- Primary Benign essential hypertension Essential hypertension, benign Mild episode of recurrent major depressive disorder JOHN (generalized anxiety disorder) Generalized anxiety disorder Chronic heart failure with preserved ejection fraction (HFpEF) ([facility]) Type 2 diabetes mellitus with microalbuminuria, with long-term current use of insulin ([facility]) Class 3 severe obesity due to excess calories with serious comorbidity and body mass index (BMI) of40.0 to 44.9 in adult ([facility]) Encounter for long-term (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 medications Encounter for long-term (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 other medications Dyslipidemia Other and unspecified hyperlipidemia Primary osteoarthritis of both knees Genital warts Condyloma acuminatum documented in [facility] Diagnosis Mild episode of recurrent major depressive disorder- Primary Type 2 diabetes mellitus with microalbuminuria, with long-term current use of insulin ([facility]) JOHN (generalized anxiety disorder) Generalized anxiety disorder Migraine without aura and without status migrainosus, not intractable Irritable bowel syndrome with diarrhea Irritable bowel syndrome Gastroesophageal reflux disease without esophagitis Esophageal reflux Hot flashes due to menopause Morbid obesity ([facility]) Morbid obesity 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 insulin (Z79.4) Obesity hypoventilation syndrome ([facility])- Primary Obesity hypoventilation syndrome Hypoxia Hypoxemia Type 2 diabetes mellitus with microalbuminuria, with long-term current use of insulin ([facility]) Right carpal tunnel syndrome Carpal tunnel syndrome Elevated blood-pressure reading without diagnosis of hypertension Elevated blood pressure reading without diagnosis of hypertension Type 2 diabetes mellitus with hyperglycemia, with long-term current use of insulin ([facility])- Primary Mild episode of recurrent major depressive disorder JOHN (generalized anxiety disorder) Generalized anxiety disorder Carpal tunnel syndrome of left wrist Obesity hypoventilation syndrome ([facility] [place]) Obesity hypoventilation syndrome Generalized edema Edema Irritable bowel syndrome with diarrhea Irritable bowel syndrome Gastroesophageal reflux disease without esophagitis Esophageal reflux Anxiety state Anxiety state, unspecified Type 2 diabetes mellitus with hyperglycemia, with long-term current use of insulin ([facility])- Primary Right carpal tunnel syndrome Carpal tunnel syndrome Chronic hypoxic respiratory failure ([facility]) Mild episode of recurrent major depressive disorder JOHN (generalized anxiety disorder) Generalized anxiety disorder Generalized edema 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 Spondylosis of unspecified site without mention of myelopathy 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 elsewhere ([facility]) Acute pain of right knee- Primary Type 2 diabetes mellitus with microalbuminuria, with long-term current use of insulin ([facility]) Right carpal tunnel syndrome Carpal tunnel syndrome Chronic hypoxic respiratory failure ([facility])- Primary Chronic heart failure with preserved ejection fraction (HFpEF) ([facility]) Type 2 diabetes mellitus with hyperglycemia, with long-term current use of insulin ([facility]) Pulmonary hypertension ([facility]) Other chronic pulmonary heart diseases Colon cancer screening Special screening for malignant neoplasms, colon Gastroesophageal reflux disease without esophagitis Esophageal reflux Dehydration- Primary Nausea and vomiting, unspecified vomiting type Type 2 diabetes mellitus with hyperglycemia, with long-term current use of insulin ([facility]) Class 3 severe obesity due to excess calories with serious comorbidity and body mass index (BMI) of40.0 to 44.9 in adult ([facility]) Chronic hypoxic respiratory failure ([facility]) Chronic heart failure with preserved ejection fraction (HFpEF) ([facility]) Type 2 diabetes mellitus with hyperglycemia, with long-term current use of insulin ([facility])- Primary Chronic heart failure with preserved ejection fraction (HFpEF) ([facility]) Mild episode of recurrent major depressive disorder JOHN (generalized anxiety disorder) Generalized anxiety disorder Gastroesophageal reflux disease without esophagitis Esophageal reflux Class 3 severe obesity due to excess calories with serious comorbidity and body mass index (BMI) of40.0 to 44.9 in adult ([facility]) Type 2 diabetes mellitus with hyperglycemia, with long-term current use of insulin ([facility])- Primary Benign essential hypertension Essential hypertension, benign Mild episode of recurrent major depressive disorder JOHN (generalized anxiety disorder) Generalized anxiety disorder Chronic heart failure with preserved ejection fraction (HFpEF) ([facility]) Type 2 diabetes mellitus with microalbuminuria, with long-term current use of insulin ([facility]) Class 3 severe obesity due to excess calories with serious comorbidity and body mass index (BMI) of40.0 to 44.9 in adult ([facility] [place]) Encounter for long-term (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 medications Encounter for long-term (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 other medications Dyslipidemia Other and unspecified hyperlipidemia Primary osteoarthritis of both knees Acute pain of left knee- Primary documented in this encounter [facility]* Diagnosis Mild episode of recurrent major depressive disorder- Primary Type 2 diabetes mellitus with microalbuminuria, with long-term current use of insulin ([facility]) JOHN (generalized anxiety disorder) Generalized anxiety disorder Migraine without aura and without status migrainosus, not intractable Irritable bowel syndrome with diarrhea Irritable bowel syndrome Gastroesophageal reflux disease without esophagitis Esophageal reflux Hot flashes due to menopause Morbid obesity ([facility]) Morbid obesity 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 insulin (Z79.4) Obesity hypoventilation syndrome ([facility])- Primary Obesity hypoventilation syndrome Hypoxia Hypoxemia Type 2 diabetes mellitus with microalbuminuria, with long-term current use of insulin ([facility]) Right carpal tunnel syndrome Carpal tunnel syndrome Elevated blood-pressure reading without diagnosis of hypertension Elevated blood pressure reading without diagnosis of hypertension Type 2 diabetes mellitus with hyperglycemia, with long-term current use of insulin ([facility])- Primary Mild episode of recurrent major depressive disorder JOHN (generalized anxiety disorder) Generalized anxiety disorder Carpal tunnel syndrome of left wrist Obesity hypoventilation syndrome ([facility]) Obesity hypoventilation syndrome Generalized edema Edema Irritable bowel syndrome with diarrhea Irritable bowel syndrome Gastroesophageal reflux disease without esophagitis Esophageal reflux Anxiety state Anxiety state, unspecified Type 2 diabetes mellitus with hyperglycemia, with long-term current use of insulin ([facility])- Primary Right carpal tunnel syndrome Carpal tunnel [...] microalbuminuria, with long-term current use of insulin ([facility]) Right carpal tunnel syndrome Carpal tunnel syndrome Chronic hypoxic respiratory failure (HCC)- Primary Chronic heart failure with preserved ejection fraction (HFpEF) ([facility]) Type 2 diabetes mellitus with hyperglycemia, with long-term current use of insulin ([facility]) Pulmonary hypertension (HCC) Other chronic pulmonary heart diseases Colon cancer screening Special screening for malignant neoplasms, colon Gastroesophageal reflux disease without esophagitis Esophageal reflux Dehydration- Primary Nausea and vomiting, unspecified vomiting type Type 2 diabetes mellitus with hyperglycemia, with long-term current use of insulin ([facility]) Class 3 severe obesity due to excess calories with serious comorbidity and body mass index (BMI) of40.0 to 44.9 in adult ([facility]) Chronic hypoxic respiratory failure ([facility]) Chronic heart failure with preserved ejection fraction (HFpEF) ([facility]) Type 2 diabetes mellitus with hyperglycemia, with long-term current use of insulin ([facility])- Primary Chronic heart failure with preserved ejection fraction (HFpEF) ([facility]) Mild episode of recurrent major depressive disorder JOHN (generalized anxiety disorder) Generalized anxiety disorder Gastroesophageal reflux disease without esophagitis Esophageal reflux Class 3 severe obesity due to excess calories with serious comorbidity and body mass index (BMI) of40.0 to 44.9 in adult ([facility] [place]) Type 2 diabetes mellitus with hyperglycemia, with long-term current use of insulin ([facility])- Primary Benign essential hypertension Essential hypertension, benign Mild episode of recurrent major depressive disorder JOHN (generalized anxiety disorder) Generalized anxiety disorder Chronic heart failure with preserved ejection fraction (HFpEF) ([facility]) Type 2 diabetes mellitus with microalbuminuria, with long-term current use of insulin ([facility]) Class 3 severe obesity due to excess calories with serious comorbidity and body mass index (BMI) of40.0 to 44.9 in adult ([facility] [place] [place]) Encounter for long-term (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 medications [...] microalbuminuria, with long-term current use of insulin ([facility]) JOHN (generalized anxiety disorder) Generalized anxiety disorder Migraine without aura and without status migrainosus, not intractable Irritable bowel syndrome with diarrhea Irritable bowel syndrome Gastroesophageal reflux disease without esophagitis Esophageal reflux Hot flashes due to menopause Morbid obesity ([facility] [place]) Morbid obesity 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 insulin (Z79.4) Obesity hypoventilation syndrome ([facility] [place])- Primary Obesity hypoventilation syndrome Hypoxia Hypoxemia Type 2 diabetes mellitus with microalbuminuria, with long-term current use of insulin ([facility]) Right carpal tunnel syndrome Carpal tunnel syndrome Elevated blood-pressure reading without diagnosis of hypertension Elevated blood pressure reading without diagnosis of hypertension Type 2 diabetes mellitus with hyperglycemia, with long-term current use of insulin ([facility])- Primary Mild episode of recurrent major depressive disorder JOHN (generalized anxiety disorder) Generalized anxiety disorder Carpal tunnel syndrome of left wrist Obesity hypoventilation syndrome ([facility]) Obesity hypoventilation syndrome Generalized edema Edema Irritable bowel syndrome with diarrhea Irritable bowel syndrome Gastroesophageal reflux disease without esophagitis Esophageal reflux Anxiety state Anxiety state, unspecified Type 2 diabetes mellitus with hyperglycemia, with long-term current use of insulin ([facility])- Primary Right carpal tunnel syndrome Carpal tunnel syndrome Chronic hypoxic respiratory failure ([facility]) Mild episode of recurrent major depressive disorder JOHN (generalized anxiety disorder) Generalized anxiety disorder Generalized edema 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 Spondylosis of unspecified site without mention of myelopathy 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 elsewhere ([facility]) Acute pain of right knee- Primary Type 2 diabetes mellitus with microalbuminuria, with long-term current use of insulin ([facility]) Right carpal tunnel syndrome Carpal tunnel syndrome Chronic hypoxic respiratory failure ([facility])- Primary Chronic heart failure with preserved ejection fraction (HFpEF) ([facility]) Type 2 diabetes mellitus with hyperglycemia, with long-term current use of insulin ([facility]) Pulmonary hypertension ([facility]) Other chronic pulmonary heart diseases Colon cancer screening Special screening for malignant neoplasms, colon Gastroesophageal reflux disease without esophagitis Esophageal reflux Dehydration- Primary Nausea and vomiting, unspecified vomiting type Type 2 diabetes mellitus with hyperglycemia, with long-term current use of insulin ([facility]) Class 3 severe obesity due to excess calories with serious comorbidity and body mass index (BMI) of40.0 to 44.9 in adult ([facility]) Chronic hypoxic respiratory failure ([facility]) Chronic heart failure with preserved ejection fraction (HFpEF) ([facility]) Type 2 diabetes mellitus with hyperglycemia, with long-term current use of insulin ([facility])- Primary Chronic heart failure with preserved ejection fraction (HFpEF) ([facility]) Mild episode of recurrent major depressive disorder JOHN (generalized anxiety disorder) Generalized anxiety disorder Gastroesophageal reflux disease without esophagitis Esophageal reflux Class 3 severe obesity due to excess calories with serious comorbidity and body mass index (BMI) of40.0 to 44.9 in adult ([facility]) Type 2 diabetes mellitus with hyperglycemia, with long-term current use of insulin ([facility])- Primary Benign essential hypertension Essential hypertension, benign Mild episode of recurrent major depressive disorder JOHN (generalized anxiety disorder) Generalized anxiety disorder Chronic heart failure with preserved ejection fraction (HFpEF) ([facility]) Type 2 diabetes mellitus with microalbuminuria, with long-term current use of insulin ([facility]) Class 3 severe obesity due to excess calories with serious comorbidity and body mass index (BMI) of40.0 to 44.9 in adult ([facility]) Encounter for long-term (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 medications Encounter for long-term (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 other medications Dyslipidemia Other and unspecified hyperlipidemia Primary osteoarthritis of both knees Acute pain of left knee- Primary documented in this encounter [facility]* Diagnosis Mild episode of recurrent major depressive disorder- Primary Type 2 diabetes mellitus with microalbuminuria, with long-term current use of insulin ([facility]) JOHN (generalized anxiety disorder) Generalized anxiety disorder Migraine without aura and without status migrainosus, not intractable Irritable bowel syndrome with diarrhea Irritable bowel syndrome Gastroesophageal reflux disease without esophagitis Esophageal reflux Hot flashes due to menopause Morbid obesity ([facility]) Morbid obesity group home (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 insulin (Z79.4) Obesity hypoventilation syndrome ([facility] [place])- Primary Obesity hypoventilation syndrome Hypoxia Hypoxemia Type 2 diabetes mellitus with microalbuminuria, with long-term current use of insulin ([facility]) Right carpal tunnel syndrome Carpal tunnel syndrome Elevated blood-pressure reading without diagnosis of hypertension Elevated blood pressure reading without diagnosis of hypertension Type 2 diabetes mellitus with hyperglycemia, with long-term current use of insulin ([facility])- Primary Mild episode of recurrent major depressive disorder JOHN (generalized anxiety disorder) Generalized anxiety disorder Carpal tunnel syndrome of left wrist Obesity hypoventilation syndrome ([facility]) Obesity hypoventilation syndrome Generalized edema Edema Irritable bowel syndrome with diarrhea Irritable bowel syndrome Gastroesophageal reflux disease without esophagitis Esophageal reflux Anxiety state Anxiety state, unspecified Type 2 diabetes mellitus with hyperglycemia, with long-term current use of insulin ([facility])- Primary Right carpal tunnel syndrome Carpal tunnel syndrome Chronic hypoxic respiratory failure ([facility]) Mild episode of recurrent major depressive disorder JOHN (generalized anxiety disorder) Generalized anxiety disorder Generalized edema 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 Spondylosis of unspecified site without mention of myelopathy 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 elsewhere ([facility]) Acute pain of right knee- Primary Type 2 diabetes mellitus with microalbuminuria, with long-term current use of insulin ([facility]) Right carpal tunnel syndrome Carpal tunnel syndrome Chronic hypoxic respiratory failure ([facility])- Primary Chronic heart failure with preserved ejection fraction (HFpEF) ([facility]) Type 2 diabetes mellitus with hyperglycemia, with long-term current use of insulin ([facility]) Pulmonary hypertension ([facility]) Other chronic pulmonary heart diseases Colon cancer screening Special screening for malignant neoplasms, colon Gastroesophageal reflux disease without esophagitis Esophageal reflux Dehydration- Primary Nausea and vomiting, unspecified vomiting type Type 2 diabetes mellitus with hyperglycemia, with long-term current use of insulin ([facility]) Class 3 severe obesity due to excess calories with serious comorbidity and body mass index (BMI) of40.0 to 44.9 in adult ([facility]) Chronic hypoxic respiratory failure ([facility]) Chronic heart failure with preserved ejection fraction (HFpEF) ([facility]) Type 2 diabetes mellitus with hyperglycemia, with long-term current use of insulin ([facility])- Primary Chronic heart failure with preserved ejection fraction (HFpEF) ([facility]) Mild episode of recurrent major depressive disorder JOHN (generalized anxiety disorder) Generalized anxiety disorder Gastroesophageal reflux disease without esophagitis Esophageal reflux Class 3 severe obesity due to excess calories with serious comorbidity and body mass index (BMI) of40.0 to 44.9 in adult ([facility] [place]) Type 2 diabetes mellitus with hyperglycemia, with long-term current use of insulin ([facility])- Primary Benign essential hypertension Essential hypertension, benign Mild episode of recurrent major depressive disorder JOHN (generalized anxiety disorder) Generalized anxiety disorder Chronic heart failure with preserved ejection fraction (HFpEF) ([facility]) Type 2 diabetes mellitus with microalbuminuria, with long-term current use of insulin ([facility]) Class 3 severe obesity due to excess calories with serious comorbidity and body mass index (BMI) of40.0 to 44.9 in adult ([facility] [place]) Encounter for long-term (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 medications Encounter for long-term (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 other medications Dyslipidemia Other and unspecified hyperlipidemia Primary osteoarthritis of both knees Acute pain of left knee- Primary documented [facility] Diagnosis Mild episode of recurrent major depressive disorder- Primary Type 2 diabetes mellitus with microalbuminuria, with long-term current use of insulin ([facility]) JOHN (generalized anxiety disorder) Generalized anxiety disorder Migraine without aura and without status migrainosus, not intractable Irritable bowel syndrome with diarrhea Irritable bowel syndrome Gastroesophageal reflux disease without esophagitis Esophageal reflux Hot flashes due to menopause Morbid obesity ([facility] [place]) Morbid obesity group home (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 insulin (Z79.4) Obesity hypoventilation syndrome ([facility] [place])- Primary Obesity hypoventilation syndrome Hypoxia Hypoxemia Type 2 diabetes mellitus with microalbuminuria, with long-term current use of insulin ([facility]) Right carpal tunnel syndrome Carpal tunnel syndrome Elevated blood-pressure reading without diagnosis of hypertension Elevated blood pressure reading without diagnosis of hypertension Type 2 diabetes mellitus with hyperglycemia, with long-term current use of insulin ([facility])- Primary Mild episode of recurrent major depressive disorder JOHN (generalized anxiety disorder) Generalized anxiety disorder Carpal tunnel syndrome of left wrist Obesity hypoventilation syndrome ([facility]) Obesity hypoventilation syndrome Generalized edema Edema Irritable bowel syndrome with diarrhea Irritable bowel syndrome Gastroesophageal reflux disease without esophagitis Esophageal reflux Anxiety state Anxiety state, unspecified Type 2 diabetes mellitus with hyperglycemia, with long-term current use of insulin ([facility])- Primary Right carpal tunnel syndrome Carpal tunnel syndrome Chronic hypoxic respiratory failure ([facility]) Mild episode of recurrent major depressive disorder JOHN (generalized anxiety disorder) Generalized anxiety disorder Generalized edema 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 Spondylosis of unspecified site without mention of myelopathy 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 elsewhere ([facility]) Acute pain of right knee- Primary Type 2 diabetes mellitus with microalbuminuria, with long-term current use of insulin ([facility]) Right carpal tunnel syndrome Carpal tunnel syndrome Chronic hypoxic respiratory failure ([facility])- Primary Chronic heart failure with preserved ejection fraction (HFpEF) ([facility]) Type 2 diabetes mellitus with hyperglycemia, with long-term current use of insulin ([facility]) Pulmonary hypertension ([facility]) Other chronic pulmonary heart diseases Colon cancer screening Special screening for malignant neoplasms, colon Gastroesophageal reflux disease without esophagitis Esophageal reflux Dehydration- Primary Nausea and vomiting, unspecified vomiting type Type 2 diabetes mellitus with hyperglycemia, with long-term current use of insulin ([facility]) Class 3 severe obesity due to excess calories with serious comorbidity and body mass index (BMI) of40.0 to 44.9 in adult ([facility] [place]) Chronic hypoxic respiratory failure ([facility]) Chronic heart failure with preserved ejection fraction (HFpEF) ([facility]) Type 2 diabetes mellitus with hyperglycemia, with long-term current use of insulin ([facility])- Primary Chronic heart failure with preserved ejection fraction (HFpEF) ([facility]) Mild episode of recurrent major depressive disorder JOHN (generalized anxiety disorder) Generalized anxiety disorder Gastroesophageal reflux disease without esophagitis Esophageal reflux Class 3 severe obesity due to excess calories with serious comorbidity and body mass index (BMI) of40.0 to 44.9 in adult ([facility] [place]) Type 2 diabetes mellitus with hyperglycemia, with long-term current use of insulin ([facility])- Primary Benign essential hypertension Essential hypertension, benign Mild episode of recurrent major depressive disorder JOHN (generalized anxiety disorder) Generalized anxiety disorder Chronic heart failure with preserved ejection fraction (HFpEF) ([facility]) Type 2 diabetes mellitus with microalbuminuria, with long-term current use of insulin ([facility]) Class 3 severe obesity due to excess calories with serious comorbidity and body mass index (BMI) of40.0 to 44.9 in adult ([facility] [place]) Encounter for long-term (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 medications Encounter for long-term (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 other medications Dyslipidemia Other and unspecified hyperlipidemia Primary osteoarthritis of both knees Acute pain of left knee- Primary documented in this encounter [facility] HealthcareEvaluation note* Diagnosis Mild episode of recurrent major depressive disorder- Primary Type 2 diabetes mellitus with microalbuminuria, with long-term current use of insulin ([facility]) JOHN (generalized anxiety disorder) Generalized anxiety disorder Migraine without aura and without status migrainosus, not intractable Irritable bowel syndrome with diarrhea Irritable bowel syndrome Gastroesophageal reflux disease without esophagitis Esophageal reflux Hot flashes due to menopause Morbid obesity ([facility] [place]) Morbid obesity group home (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 insulin (Z79.4) Obesity hypoventilation syndrome ([facility] [place])- Primary Obesity hypoventilation syndrome Hypoxia Hypoxemia Type 2 diabetes mellitus with microalbuminuria, with long-term current use of insulin ([facility]) Right carpal tunnel syndrome Carpal tunnel syndrome Elevated blood-pressure reading without diagnosis of hypertension Elevated blood pressure reading without diagnosis of hypertension Type 2 diabetes mellitus with hyperglycemia, with long-term current use of insulin ([facility])- Primary Mild episode of recurrent major depressive disorder JOHN (generalized anxiety disorder) Generalized anxiety disorder Carpal tunnel syndrome of left wrist Obesity hypoventilation syndrome ([facility] [place]) Obesity hypoventilation syndrome Generalized edema Edema Irritable bowel syndrome with diarrhea Irritable bowel syndrome Gastroesophageal reflux disease without esophagitis Esophageal reflux Anxiety state Anxiety state, unspecified Type 2 diabetes mellitus with hyperglycemia, with long-term current use of insulin ([facility])- Primary Right carpal tunnel syndrome Carpal tunnel syndrome Chronic hypoxic respiratory failure ([facility]) Mild episode of recurrent major depressive disorder JOHN (generalized anxiety disorder) Generalized anxiety disorder Generalized edema 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 Spondylosis of unspecified site without mention of myelopathy 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 elsewhere ([facility]) Acute pain of right knee- Primary Type 2 diabetes mellitus with microalbuminuria, with long-term current use of insulin ([facility]) Right carpal tunnel syndrome Carpal tunnel syndrome Chronic hypoxic respiratory failure ([facility])- Primary Chronic heart failure with preserved ejection fraction (HFpEF) ([facility]) Type 2 diabetes mellitus with hyperglycemia, with long-term current use of insulin ([facility]) Pulmonary hypertension ([facility]) Other chronic pulmonary heart diseases Colon cancer screening Special screening for malignant neoplasms, colon Gastroesophageal reflux disease without esophagitis Esophageal reflux Dehydration- Primary Nausea and vomiting, unspecified vomiting type Type 2 diabetes mellitus with hyperglycemia, with long-term current use of insulin ([facility]) Class 3 severe obesity due to excess calories with serious comorbidity and body mass index (BMI) of40.0 to 44.9 in adult ([facility] [place]) Chronic hypoxic respiratory failure ([facility]) Chronic heart failure with preserved ejection fraction (HFpEF) ([facility]) Type 2 diabetes mellitus with hyperglycemia, with long-term current use of insulin ([facility])- Primary Chronic heart failure with preserved ejection fraction (HFpEF) ([facility]) Mild episode of recurrent major depressive disorder JOHN (generalized anxiety disorder) Generalized anxiety disorder Gastroesophageal reflux disease without esophagitis Esophageal reflux Class 3 severe obesity due to excess calories with serious comorbidity and body mass index (BMI) of40.0 to 44.9 in adult ([facility] [place]) Type 2 diabetes mellitus with hyperglycemia, with long-term current use of insulin ([facility])- Primary Benign essential hypertension Essential hypertension, benign Mild episode of recurrent major depressive disorder JOHN (generalized anxiety disorder) Generalized anxiety disorder Chronic heart failure with preserved ejection fraction (HFpEF) ([facility]) Type 2 diabetes mellitus with microalbuminuria, with long-term current use of insulin ([facility]) Class 3 severe obesity due to excess calories with serious comorbidity and body mass index (BMI) of40.0 to 44.9 in adult ([facility] [place]) Encounter for long-term (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 medications Encounter for long-term (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 other medications Dyslipidemia Other and unspecified hyperlipidemia Primary osteoarthritis of both knees Pelvic pain in female- Primary Unspecified symptom associated with female genital organs Nausea Nausea alone Genital warts Condyloma acuminatum documented in this encounter [facility] HealthcareEvaluation note* Diagnosis Mild episode of recurrent major depressive disorder- Primary Type 2 diabetes mellitus with microalbuminuria, with long-term current use of insulin ([facility]) JOHN (generalized anxiety disorder) Generalized anxiety disorder Migraine without aura and without status migrainosus, not intractable Irritable bowel syndrome with diarrhea Irritable bowel syndrome Gastroesophageal reflux disease without esophagitis Esophageal reflux Hot flashes due to menopause Morbid obesity ([facility] [place]) Morbid obesity group home (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 insulin (Z79.4) Obesity hypoventilation syndrome (CMS-HCC)- Primary Obesity hypoventilation syndrome Hypoxia Hypoxemia Type 2 diabetes mellitus with microalbuminuria, with long-term current use of insulin (HCC) Right carpal tunnel syndrome Carpal tunnel syndrome Elevated blood-pressure reading without diagnosis of hypertension Elevated blood pressure reading without diagnosis of hypertension Type 2 diabetes mellitus with hyperglycemia, with long-term current use of insulin ([facility])- Primary Mild episode of recurrent major depressive disorder JOHN (generalized anxiety disorder) Generalized anxiety disorder Carpal tunnel syndrome of left wrist Obesity hypoventilation syndrome ([facility]) Obesity hypoventilation syndrome Generalized edema Edema Irritable bowel syndrome with diarrhea Irritable bowel syndrome Gastroesophageal reflux disease without esophagitis Esophageal reflux Anxiety state Anxiety state, unspecified Type 2 diabetes mellitus with hyperglycemia, with long-term current use of insulin ([facility])- Primary Right carpal tunnel syndrome Carpal tunnel syndrome Chronic hypoxic respiratory failure ([facility]) Mild episode of recurrent major depressive disorder JOHN (generalized anxiety disorder) Generalized anxiety disorder Generalized edema 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 Spondylosis of unspecified site without mention of myelopathy 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 elsewhere ([facility]) Acute pain of right knee- Primary Type 2 diabetes mellitus with microalbuminuria, with long-term current use of insulin ([facility]) Right carpal tunnel syndrome Carpal tunnel syndrome Chronic hypoxic respiratory failure ([facility])- Primary Chronic heart failure with preserved ejection fraction (HFpEF) ([facility]) Type 2 diabetes mellitus with hyperglycemia, with long-term current use of insulin ([facility]) Pulmonary hypertension ([facility]) Other chronic pulmonary heart diseases Colon cancer screening Special screening for malignant neoplasms, colon Gastroesophageal reflux disease without esophagitis Esophageal reflux Dehydration- Primary Nausea and vomiting, unspecified vomiting type Type 2 diabetes mellitus with hyperglycemia, with long-term current use of insulin ([facility]) Class 3 severe obesity due to excess calories with serious comorbidity and body mass index (BMI) of40.0 to 44.9 in adult ([facility] [place]) Chronic hypoxic respiratory failure (HCC) Chronic heart failure with preserved ejection fraction (HFpEF) ([facility]) Type 2 diabetes mellitus with hyperglycemia, with long-term current use of insulin ([facility])- Primary Chronic heart failure with preserved ejection fraction (HFpEF) ([facility]) Mild episode of recurrent major depressive disorder JOHN (generalized anxiety disorder) Generalized anxiety disorder Gastroesophageal reflux disease without esophagitis Esophageal reflux Class 3 severe obesity due to excess calories with serious comorbidity and body mass index (BMI) of40.0 to 44.9 in adult ([facility] [place]) Type 2 diabetes mellitus with hyperglycemia, with long-term current use of insulin ([facility])- Primary Benign essential hypertension Essential hypertension, benign Mild episode of recurrent major depressive disorder JOHN (generalized anxiety disorder) Generalized anxiety disorder Chronic heart failure with preserved ejection fraction (HFpEF) ([facility]) Type 2 diabetes mellitus with microalbuminuria, with long-term current use of insulin ([facility]) Class 3 severe obesity due to excess calories with serious comorbidity and body mass index (BMI) of40.0 to 44.9 in adult ([facility] [place]) Encounter for long-term (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 medications Encounter for long-term (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 other medications Dyslipidemia Other and unspecified hyperlipidemia Primary osteoarthritis of both knees Acute pain of left knee- Primary Acute medial meniscus tear of left knee, initial encounter documented in this encounter [facility] HealthcareEvaluation note* Diagnosis Hypoxia- Primary Hypoxemia Dyspnea on exertion Other dyspnea and respiratory abnormality documented in this encounter [facility] SystemEvaluation noteNo assessment information available [facility] Work Phone: Evaluation note* Diagnosis Moderate persistent asthma without complication- Primary documented in this encounter [facility] SystemEvaluation note* Diagnosis Mild episode of recurrent major depressive disorder- Primary Type 2 diabetes mellitus with microalbuminuria, with long-term current use of insulin ([facility]) JOHN (generalized anxiety disorder) Generalized anxiety disorder Migraine without aura and without status migrainosus, not intractable Irritable bowel syndrome with diarrhea Irritable bowel syndrome Gastroesophageal reflux disease without esophagitis Esophageal reflux Hot flashes due to menopause Morbid obesity ([facility] [place]) Morbid obesity group home (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 insulin (Z79.4) Obesity hypoventilation syndrome ([facility] [place])- Primary Obesity hypoventilation syndrome Hypoxia Hypoxemia Type 2 diabetes mellitus with microalbuminuria, with long-term current use of insulin ([facility]) Right carpal tunnel syndrome Carpal tunnel syndrome Elevated blood-pressure reading without diagnosis of hypertension Elevated blood pressure reading without diagnosis of hypertension Type 2 diabetes mellitus with hyperglycemia, with long-term current use of insulin ([facility])- Primary Mild episode of recurrent major depressive disorder JOHN (generalized anxiety disorder) Generalized anxiety disorder Carpal tunnel syndrome of left wrist Obesity hypoventilation syndrome ([facility]) Obesity hypoventilation syndrome Generalized edema Edema Irritable bowel syndrome with diarrhea Irritable bowel syndrome Gastroesophageal reflux disease without esophagitis Esophageal reflux Anxiety state Anxiety state, unspecified Type 2 diabetes mellitus with hyperglycemia, with long-term current use of insulin ([facility])- Primary Right carpal tunnel syndrome Carpal tunnel syndrome Chronic hypoxic respiratory failure (HCC) Mild episode of recurrent major depressive disorder JOHN (generalized anxiety disorder) Generalized anxiety disorder Generalized edema 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 Spondylosis of unspecified site without mention of myelopathy 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 elsewhere ([facility]) Acute pain of right knee- Primary Type 2 diabetes mellitus with microalbuminuria, with long-term current use of insulin ([facility]) Right carpal tunnel syndrome Carpal tunnel syndrome Chronic hypoxic respiratory failure (HCC)- Primary Chronic heart failure with preserved ejection fraction (HFpEF) ([facility]) Type 2 diabetes mellitus with hyperglycemia, with long-term current use of insulin ([facility]) Pulmonary hypertension ([facility]) Other chronic pulmonary heart diseases Colon cancer screening Special screening for malignant neoplasms, colon Gastroesophageal reflux disease without esophagitis Esophageal reflux Dehydration- Primary Nausea and vomiting, unspecified vomiting type Type 2 diabetes mellitus with hyperglycemia, with long-term current use of insulin ([facility]) Class 3 severe obesity due to excess calories with serious comorbidity and body mass index (BMI) of40.0 to 44.9 in adult ([facility] [place]) Chronic hypoxic respiratory failure ([facility]) Chronic heart failure with preserved ejection fraction (HFpEF) ([facility]) Type 2 diabetes mellitus with hyperglycemia, with long-term current use of insulin ([facility])- Primary Chronic heart failure with preserved ejection fraction (HFpEF) ([facility]) Mild episode of recurrent major depressive disorder JOHN (generalized anxiety disorder) Generalized anxiety disorder Gastroesophageal reflux disease without esophagitis Esophageal reflux Class 3 severe obesity due to excess calories with serious comorbidity and body mass index (BMI) of40.0 to 44.9 in adult ([facility] [place]) Type 2 diabetes mellitus with hyperglycemia, with long-term current use of insulin ([facility])- Primary Benign essential hypertension Essential hypertension, benign Mild episode of recurrent major depressive disorder JOHN (generalized anxiety disorder) Generalized anxiety disorder Chronic heart failure with preserved ejection fraction (HFpEF) ([facility]) Type 2 diabetes mellitus with microalbuminuria, with long-term current use of insulin ([facility]) Class 3 severe obesity due to excess calories with serious comorbidity and body mass index (BMI) of40.0 to 44.9 in adult ([facility] [place]) Encounter for long-term (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 medications Encounter for long-term (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 other medications Dyslipidemia Other and unspecified hyperlipidemia Primary osteoarthritis of both knees Type 2 diabetes mellitus with hyperglycemia, with long-term current use of insulin ([facility]) documented in this encounter [facility] HealthcareEvaluation note* Diagnosis Obstructive sleep apnea syndrome- Primary Obstructive sleep apnea (adult) (pediatric) Dyspnea on exertion Other dyspnea and respiratory abnormality Moderate persistent asthma without complication Chronic hypoxic respiratory failure ([facility] [place]) BMI 40.0-44.9, adult ([facility] [place]) Obesity, morbid, BMI 40.0-49.9 ([facility] [place]) documented in this encounter [facility] SystemEvaluation note* Diagnosis Chronic hypoxic respiratory failure ([facility] [place])- Primary Hypoxia Hypoxemia SOB (shortness of breath) Shortness of breath documented in this encounter [facility] SystemEvaluation note* Diagnosis Mild episode of recurrent major depressive disorder- Primary Type 2 diabetes mellitus with microalbuminuria, with long-term current use of insulin ([facility]) JOHN (generalized anxiety disorder) Generalized anxiety disorder Migraine without aura and without status migrainosus, not intractable Irritable bowel syndrome with diarrhea Irritable bowel syndrome Gastroesophageal reflux disease without esophagitis Esophageal reflux Hot flashes due to menopause Morbid obesity ([facility] [place]) Morbid obesity group home (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 insulin (Z79.4) Obesity hypoventilation syndrome ([facility] [place])- Primary Obesity hypoventilation syndrome Hypoxia Hypoxemia Type 2 diabetes mellitus with microalbuminuria, with long-term current use of insulin ([facility]) Right carpal tunnel syndrome Carpal tunnel syndrome Elevated blood-pressure reading without diagnosis of hypertension Elevated blood pressure reading without diagnosis of hypertension Type 2 diabetes mellitus with hyperglycemia, with long-term current use of insulin ([facility])- Primary Mild episode of recurrent major depressive disorder JOHN (generalized anxiety disorder) Generalized anxiety disorder Carpal tunnel syndrome of left wrist Obesity hypoventilation syndrome ([facility]) Obesity hypoventilation syndrome Generalized edema Edema Irritable bowel syndrome with diarrhea Irritable bowel syndrome Gastroesophageal reflux disease without esophagitis Esophageal reflux Anxiety state Anxiety state, unspecified Type 2 diabetes mellitus with hyperglycemia, with long-term current use of insulin ([facility])- Primary Right carpal tunnel syndrome Carpal tunnel syndrome Chronic hypoxic respiratory failure (HCC) Mild episode of recurrent major depressive disorder JOHN (generalized anxiety disorder) Generalized anxiety disorder Generalized edema 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 Spondylosis of unspecified site without mention of myelopathy 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 elsewhere ([facility]) Acute pain of right knee- Primary Type 2 diabetes mellitus with microalbuminuria, with long-term current use of insulin ([facility]) Right carpal tunnel syndrome Carpal tunnel syndrome Chronic hypoxic respiratory failure ([facility])- Primary Chronic heart failure with preserved ejection fraction (HFpEF) ([facility]) Type 2 diabetes mellitus with hyperglycemia, with long-term current use of insulin ([facility]) Pulmonary hypertension ([facility]) Other chronic pulmonary heart diseases Colon cancer screening Special screening for malignant neoplasms, colon Gastroesophageal reflux disease without esophagitis Esophageal reflux Dehydration- Primary Nausea and vomiting, unspecified vomiting type Type 2 diabetes mellitus with hyperglycemia, with long-term current use of insulin ([facility]) Class 3 severe obesity due to excess calories with serious comorbidity and body mass index (BMI) of40.0 to 44.9 in adult ([facility] [place]) Chronic hypoxic respiratory failure ([facility]) Chronic heart failure with preserved ejection fraction (HFpEF) ([facility]) Type 2 diabetes mellitus with hyperglycemia, with long-term current use of insulin ([facility])- Primary Chronic heart failure with preserved ejection fraction (HFpEF) ([facility]) Mild episode of recurrent major depressive disorder JOHN (generalized anxiety disorder) Generalized anxiety disorder Gastroesophageal reflux disease without esophagitis Esophageal reflux Class 3 severe obesity due to excess calories with serious comorbidity and body mass index (BMI) of40.0 to 44.9 in adult ([facility] [place]) Type 2 diabetes mellitus with hyperglycemia, with long-term current use of insulin ([facility])- Primary Benign essential hypertension Essential hypertension, benign Mild episode of recurrent major depressive disorder JOHN (generalized anxiety disorder) Generalized anxiety disorder Chronic heart failure with preserved ejection fraction (HFpEF) ([facility]) Type 2 diabetes mellitus with microalbuminuria, with long-term current use of insulin ([facility]) Class 3 severe obesity due to excess calories with serious comorbidity and body mass index (BMI) of40.0 to 44.9 in adult ([facility] [place]) Encounter for long-term (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 medications Encounter for long-term (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 other medications Dyslipidemia Other and unspecified hyperlipidemia Primary osteoarthritis of both knees Pre-op examination Pelvic pain Genital warts Condyloma acuminatum Pain of ovary documented in this encounter [facility] HealthcareEvaluation note* Diagnosis Mild episode of recurrent major depressive disorder- Primary Type 2 diabetes mellitus with microalbuminuria, with long-term current use of insulin ([facility]) JOHN (generalized anxiety disorder) Generalized anxiety disorder Migraine without aura and without status migrainosus, not intractable Irritable bowel syndrome with diarrhea Irritable bowel syndrome Gastroesophageal reflux disease without esophagitis Esophageal reflux Hot flashes due to menopause Morbid obesity ([facility] [place]) Morbid obesity group home (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 insulin (Z79.4) Obesity hypoventilation syndrome ([facility])- Primary Obesity hypoventilation syndrome Hypoxia Hypoxemia Type 2 diabetes mellitus with microalbuminuria, with long-term current use of insulin (HCC) Right carpal tunnel syndrome Carpal tunnel syndrome Elevated blood-pressure reading without diagnosis of hypertension Elevated blood pressure reading without diagnosis of hypertension Type 2 diabetes mellitus with hyperglycemia, with long-term current use of insulin ([facility])- Primary Mild episode of recurrent major depressive disorder JOHN (generalized anxiety disorder) Generalized anxiety disorder Carpal tunnel syndrome of left wrist Obesity hypoventilation syndrome ([facility]) Obesity hypoventilation syndrome Generalized edema Edema Irritable bowel syndrome with diarrhea Irritable bowel syndrome Gastroesophageal reflux disease without esophagitis Esophageal reflux Anxiety state Anxiety state, unspecified Type 2 diabetes mellitus with hyperglycemia, with long-term current use of insulin ([facility])- Primary Right carpal tunnel syndrome Carpal tunnel syndrome Chronic hypoxic respiratory failure ([facility]) Mild episode of recurrent major depressive disorder JOHN (generalized anxiety disorder) Generalized anxiety disorder Generalized edema 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 Spondylosis of unspecified site without mention of myelopathy 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 elsewhere ([facility]) Acute pain of right knee- Primary Type 2 diabetes mellitus with microalbuminuria, with long-term current use of insulin ([facility]) Right carpal tunnel syndrome Carpal tunnel syndrome Chronic hypoxic respiratory failure ([facility])- Primary Chronic heart failure with preserved ejection fraction (HFpEF) ([facility]) Type 2 diabetes mellitus with hyperglycemia, with long-term current use of insulin ([facility]) Pulmonary hypertension ([facility]) Other chronic pulmonary heart diseases Colon cancer screening Special screening for malignant neoplasms, colon Gastroesophageal reflux disease without esophagitis Esophageal reflux Dehydration- Primary Nausea and vomiting, unspecified vomiting type Type 2 diabetes mellitus with hyperglycemia, with long-term current use of insulin ([facility]) Class 3 severe obesity due to excess calories with serious comorbidity and body mass index (BMI) of40.0 to 44.9 in adult ([facility]) Chronic hypoxic respiratory failure (HCC) Chronic heart failure with preserved ejection fraction (HFpEF) ([facility]) Type 2 diabetes mellitus with hyperglycemia, with long-term current use of insulin ([facility])- Primary Chronic heart failure with preserved ejection fraction (HFpEF) ([facility]) Mild episode of recurrent major depressive disorder JOHN (generalized anxiety disorder) Generalized anxiety disorder Gastroesophageal reflux disease without esophagitis Esophageal reflux Class 3 severe obesity due to excess calories with serious comorbidity and body mass index (BMI) of40.0 to 44.9 in adult ([facility]) Type 2 diabetes mellitus with hyperglycemia, with long-term current use of insulin ([facility])- Primary Benign essential hypertension Essential hypertension, benign Mild episode of recurrent major depressive disorder JOHN (generalized anxiety disorder) Generalized anxiety disorder Chronic heart failure with preserved ejection fraction (HFpEF) ([facility]) Type 2 diabetes mellitus with microalbuminuria, with long-term current use of insulin ([facility]) Class 3 severe obesity due to excess calories with serious comorbidity and body mass index (BMI) of40.0 to 44.9 in adult ([facility]) Encounter for long-term (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 medications Encounter for long-term (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 other medications Dyslipidemia Other and unspecified hyperlipidemia Primary osteoarthritis of both knees Pre-op examination- Primary documented in this encounter [facility] HealthcareEvaluation note* Diagnosis Onset Date Resolution Status Admit Date Benign essential hypertension acuteOctober 2024 10:48amChronic heart failure with preserved ejection fraction (HFpEF)acuteOctober 2024 10:48amClass 3 severe obesity due to excess calories with serious comorbidity andacuteOctober 2024 10:48amGAD (generalized anxiety disorder)acuteOctober 2024 10:48amMild episode of recurrent major depressive disorderacuteOctober 2024 10:48amType 2 diabetes mellitus with hyperglycemia, with long-term current use ofacuteOctober 2024 10:48am [facility] Work Phone: Evaluation note* Diagnosis Onset Date Resolution Status Admit Date Benign essential hypertension acuteOctober 2024 10:48amChronic heart failure with preserved ejection fraction (HFpEF)acuteOctober 2024 10:48amClass 3 severe obesity due to excess calories with serious comorbidity andacuteOctober 2024 10:48amGAD (generalized anxiety disorder)acuteOctober 2024 10:48amLesion of skin of noseacuteOctober 2024 10:48amMild episode of recurrent major depressive disorderacuteOctober 2024 10:48amType 2 diabetes mellitus with hyperglycemia, with long-term current use ofacuteOctober 2024 10:48am [facility] Work Phone: Hospital Discharge instructions Additional Instructions POST CATARACT SURGERY INSTRUCTIONS EYEDROPS First day (24 hours) Ocuflox or Vigamox and Pred Forte-use 1 drop to operative eye every hour while awake. Artificial tears- May use 1 drop 4 times a day as needed in the surgical eye. Next day Ocuflox or Vigamox-continue to use the drop in the surgery eye 4 times per day for 1 week. Pred Forte-start using the drop in the surgery eye 4 times per day for 1 week, then taper to 3 times per day for 1 week, 2 times a day for 1 week, then once a day for 1 week. Artificial tears- May use 1 drop 4 times a day as needed in the surgical eye. -Wait 5 minutes or more between using the different medications. -Please bring all your eyedrops to every follow-up visit. BATHING: You may shower, bathe, or wash her hair normally after the surgery. SUNGLASSES: Please bring sunglasses for your ride home. Some people are light- sensitive for a few weeks following surgery. Wear sunglasses for comfort. Sunglasses are not required. DUE TO ANESTHESIA: DO NOT make complex decision/sign legal documents for 24 hours after your procedure. No smoking or drinking alcohol for 24 hours. EYE RUBBING: DO NOT RUB YOUR EYE for at least 4 weeks. BLUR: Blurriness is common for several days to weeks. IRRITATION: Mild irritation or watering eye is common. MEDICATION: Continue/resume normal medications, including eye drops. Patient educated on importance of managing medication information: -Give list of medications to primary care physician. -Update information when medications are discontinued, doses are changed or new medications added. -Carry medication list with you at all times in case of emergency. Call if questions/problems occur: If you experience 1. Persistent pain/vomiting 2. Sudden worsening of your eyesight. Please call your material mixer during normal business hours. If after business hours call Dr. Randall Soria at his cell [phone] or his office [phone].[facility] Work Phone: Hospital Discharge instructionsAmbulatory Orders* Referral to ENT Time Frame: 06/05/25, Location: None Selected [facility] Work Phone: InstructionsNot on filedocumented in this encounter [facility] filedocumented in this encounter [facility]ructionsNot on filedocumented in this encounter [facility] filedocumented in this encounter [facility]Not on filedocumented in this encounter [facility]Not on filedocumented in this encounter [facility]Not on filedocumented in this encounter [facility]Not on filedocumented in this encounter [facility]Not on filedocumented in this encounter [facility]ructionsNot on filedocumented in this encounter [facility]ructionsNot on filedocumented in this encounter [facility]Not on filedocumented in this encounter [facility]ructionsNot on filedocumented in this encounter [facility]ructionsNot on filedocumented in this encounter [facility]ructionsNot on filedocumented in this encounter [facility]ructionsNot on filedocumented in this encounter [facility]ructionsNot on filedocumented in this encounter [facility]InstructionsNot on filedocumented in this encounter [facility]InstructionsNot on filedocumented in this encounter [facility]InstructionsNot on filedocumented in this encounter [facility]InstructionsNot on filedocumented in this encounter [facility]InstructionsNot on filedocumented in this encounter [facility]InstructionsNot on filedocumented in this encounter [facility]InstructionsNot on filedocumented in this encounter [facility] SystemInstructionsNot on filedocumented in this encounter [facility] SystemInstructionsNot on filedocumented in this encounter [facility] SystemInstructionsNot on filedocumented in this encounter [facility] SystemReason for referral (narrative)* Consultation (Routine) - Pending ReviewSpecialtyDiagnoses / ProceduresReferred By ContactReferred To ContactPulmonary Medicine Diagnoses Mediastinal lymphadenopathy Ryan Mcneal MD [address] [facility] [address] [place] [address] [facility] Pul Sleep Med [address] [address] Referral IDStatusReasonStart DateExpiration DateVisits RequestedVisits [id number] Review Specialty Services Required [facility] for referral (narrative)* Consultation (Routine) - Pending ReviewSpecialtyDiagnoses / ProceduresReferred By ContactReferred To ContactPulmonary Medicine Diagnoses Hypoxia Eddie Zurita, CYTOLOGY TEACHER-PUBLIC WEIGHER [address], [facility] [address] [place] [address] Lindsay Arrieta DO [address] [place] [address] Referral IDStatusReasonStart DateExpiration DateVisits RequestedVisits [id number] Review Specialty Services Required * Misc (Routine) - Pending ReviewSpecialtyDiagnoses / ProceduresReferred By ContactReferred To Contact Procedures Discharge Follow-Up Eddie Zurita, CYTOLOGY TEACHER-PUBLIC WEIGHER [address], [facility] [address] [place] [address] Referral IDStatusReasonStart DateExpiration DateVisits RequestedVisits [id number] Review * Misc (Routine) - Pending ReviewSpecialtyDiagnoses / ProceduresReferred By ContactReferred To Contact Diagnoses Hyperglycemia Acute cystitis without hematuria Procedures Follow-up with primary care provider Eddie Zurita, FINA-PUBLIC WEIGHER [address], [facility] [address] [place] [address] Referral IDStatusReasonStart DateExpiration DateVisits RequestedVisits [id number] Review/ * Misc (Routine) - Pending ReviewSpecialtyDiagnoses / ProceduresReferred By ContactReferred To Contact Procedures Adult diet Eddie Zurita, CYTOLOGY TEACHER-PUBLIC WEIGHER [address], [facility] [address] [place] [address] Referral IDStatusReasonStart DateExpiration DateVisits RequestedVisits [id number] Review [facility] HospitalReason for referral (narrative)No reason for referral information availableWooster [facility] Hospital Work Phone: Reason for visit Narrative* Auth/CertSpecialty Diagnoses / ProceduresReferred By ContactReferred To Contact Diagnoses DKA, type 1, not at goal (HCC) Jamal Roberts MD [address] [address] [facility] [address] [place] [address] Referral IDStatusReasonStart DateExpiration DateVisits RequestedVisits [id number] [facility] Phone: reason for visit Narrative* Consultation (Routine) - Pending ReviewSpecialtyDiagnoses / ProceduresReferred By ContactReferred To ContactCardiothoracic Surgery Diagnoses Cavitary lesion of lung Diaz Dalton MD [address] [place] [address] Ryan Mcenal MD [address] [facility] [address] [place] [address] Referral IDStatusReasonStart DateExpiration DateVisits RequestedVisits [id number] Review Specialty Services Required / [facility] for visit Narrative* Misc (Routine) - Closed SpecialtyDiagnoses / ProceduresReferred By ContactReferred To Contact Diagnoses JOSE M (obstructive sleep apnea) Chronic hypoxic respiratory failure (CMS-HCC) Severe obesity (BMI >= 40) ([facility]) Procedures PSG Diagnostic Smitha Germain MD [address] [place] [address] Phone: tel: fax: Referral IDStatusReasonStart DateExpiration DateVisits RequestedVisits [id number]/6/20248/ [facility] for visit Narrative* Consultation (Routine) - AuthorizedSpecialtyDiagnoses / ProceduresReferred By ContactReferred To ContactPhysical Therapy Diagnoses Acute pain of left knee Procedures OK OFFICE/OUTPATIENT NEW HIGH MDM 60 MINUTES Jr. Harinder Jackson, [address] [facility] [address] [place] [address] Phone: tel: fax: Shakila Valadez, MELODY Referral IDStatusReasonStvirgin DateExpiration DateVisits RequestedVisits [id number] Consult and Treat / [facility] for visit Narrative* Consultation (Routine) - Authorized SpecialtyDiagnoses / ProceduresReferred By ContactReferred To ContactPhysical Therapy Diagnoses Acute pain of left knee Procedures OK OFFICE/OUTPATIENT NEW HIGH MDM 60 MINUTES Jr. Harinder Jackson, DO [address] [facility] [address] [place] [address] Phone: tel: fax: Shakila Valadez, MELODY Referral IDStatusReasonStart DateExpiration DateVisits RequestedVisits [id number] Consult and Treat [address] [facility] Summary Purpose Family History No Family History Records Found Relationship Condition Age at Onset Recorded Date/T mame father Malignant neoplasm Unknown DeceasedUnknownmotherDiabetes mellitusUnknownHypertensionUnknown Advance Directives No Advanced Directives Records FoundLatest Code Status on File Code StatusDate ActivatedDate InactivatedCommentsFull Code09/28/2021 9:46 AMDate ActivatedDate InactivatedComments12/20/2023 10:13 PM12/23/2023 5:45 PMDate ActivatedDate UriewqkjktaBcfdudcg57/2/2023 6:38 AM06/05/2023 7:25 PMDate ActivatedDate InactivatedComments03/02/2019 2:48 PM03/03/2019 5:59 PMDate ActivatedDate FihambqnjptGvrrcxxh88/17/2024 10:40 PM07/23/2024 7:57 PMDate ActivatedDate InactivatedComments12/20/2023 10:13 PM12/23/2023 5:45 PMDate ActivatedDate LmhqevwfqonMzjodkgc87/2/2023 6:38 AM06/05/2023 7:25 PMDate ActivatedDate InactivatedComments03/02/2019 2:48 PM03/03/2019 5:59 PMDate ActivatedDate EqceqvnpoewHnexabok16/17/2024 10:40 PM07/23/2024 7:57 PMDate ActivatedDate InactivatedComments12/20/2023 10:13 PM12/23/2023 5:45 PMDate ActivatedDate KkfggtllwfwMkiexssv03/2/2023 6:38 AM06/05/2023 7:25 PMDate ActivatedDate InactivatedComments03/02/2019 2:48 PM03/03/2019 5:59 PMCode Status Date ActivatedDate InactivatedCommentsFull Code06/05/2023 6:38 AM06/05/2023 7:25 PMCode StatusDate ActivatedDate InactivatedCommentsFull Code03/02/2019 2:48 PM 03/03/2019 5:59 PMCode StatusDate ActivatedDate InactivatedCommentsFull Code 06/05/2023 6:38 AM06/05/2023 7:25 PMCode StatusDate ActivatedDate Inactivated CommentsFull Code03/02/2019 2:48 PM03/03/2019 5:59 PMDate ActivatedDate InactivatedComments12/20/2023 10:13 PMDate ActivatedDate InactivatedComments 06/05/2023 6:38 AM06/05/2023 7:25 PMDate ActivatedDate InactivatedComments 03/02/2019 2:48 PM03/03/2019 5:59 PMDate ActivatedDate InactivatedComments 12/20/2023 10:13 PM12/23/2023 5:45 PM Advance Directive Response Recorded Date/ Time Advance Directives No March 22 7:25am Reason for Referral SpecialtyDiagnoses / ProceduresReferred By ContactReferred To Contact Diagnoses Type 2 diabetes mellitus with hyperglycemia, with long-term current use of insulin ([facility]) Diaz Dalton MD [address] [place] [address] Referral IDStatusReasonStart DateExpiration DateVisits RequestedVisits [id number] Review/[id number] / ProceduresReferred By ContactReferred To Contact Diagnoses Hypoxia Dyspnea on exertion Procedures Home O2 eval (desaturation screen) Lindsay Arrieta, DO [address] [address] Referral IDStatusReasonStart DateExpiration DateVisits RequestedVisits [id number] Review/[id number] / ProceduresReferred By ContactReferred To ContactRadiology Diagnoses Mediastinal lymphadenopathy Procedures CT chest with contrast Lindsay Arrieta, DO [address] [address] [facility] [address] [place] [address] Phone: [phone] Referral IDStatusReasonStart DateExpiration DateVisits RequestedVisits [id number] [id number] / ProceduresReferred By ContactReferred To Contact Diagnoses Moderate persistent asthma without complication Lindsay Arrieta, [address] [address] Referral IDStatusReasonStart DateExpiration DateVisits RequestedVisits [id number]/17/20246/16/738173DmqgyrusmTipxzrdzl / Procedures Referred By ContactReferred To Contact Diagnoses Dyspnea on exertion Chronic hypoxic respiratory failure (CMS-HCC) Moderate persistent asthma without complication Procedures Oxygen Therapy Lindsay Arrieta, [address] [address] Referral IDStatusReasonStart DateExpiration DateVisits RequestedVisits [id number] [id number] / ProceduresReferred By ContactReferred To Contact Diagnoses Dyspnea on exertion Chronic hypoxic respiratory failure (CMS-HCC) Procedures Echo complete W/O contrast Lindsay Arrieta, [address] [address] Referral IDStatusReasonStart DateExpiration DateVisits RequestedVisits [id number] [id number] / ProceduresReferred By ContactReferred To Contact Diagnoses Chronic hypoxic respiratory failure (CMS-HCC) SOB (shortness of breath) Hypoxia Procedures Oxygen Therapy Lindsay Arrieta, DO [address] [place] [address] Referral IDStatusReasonStart DateExpiration DateVisits RequestedVisits [id number] Review/[id number] / ProceduresReferred By ContactReferred To Contact Diagnoses JOSE M (obstructive sleep apnea) Chronic hypoxic respiratory failure ([facility]) Severe obesity (BMI >= 40) ([facility]) Procedures Polysomnography 4 or more parameters with PAP titration Smitha Germain MD [address] [place], [place] [address] Referral IDStatusReAt[facility] DateExpiration DateVisits RequestedVisits [id number] Review/[id number] / ProceduresReferred By ContactReferred To Contact Diagnoses JOSE M (obstructive sleep apnea) Chronic hypoxic respiratory failure ([facility]) Severe obesity (BMI >= 40) ([facility]) Procedures PSG Diagnostic Smitha Germain MD [address] [place] [address] Referral IDStatusReasonTaopi DateExpiration DateVisits RequestedVisits [id number] Review Chief Complaint and Reason for Visit Chief Complaint Admit Date Cataract May 01, 2025 10 :13am Chief Complaint Admit Date Cataract May 01, 2025 10 :13am Cataract May 15, 2025 8:06am Chief Complaint Admit Date Cataract May 01, 2025 10 :13am Cataract May 15, 2025 8:06am Established Patient June 05, 2025 10 :48am Reason for Visit Admit Date Benign essential hypertension June 10:48am Chronic heart failure with p reserved ejection fraction (HFpEF) June 05, 2025 10:48am Class 3 severe obesity due t o excess calories with serious comorbidity and June 05, 2025 10:48am JOHN (generalized anxiety disorder) Octob er 2024 10:48am Mild episode of recurrent major depressi ve disorder June 05, 2025 10:48am Type 2 diabetes mellitus wit h hyperglycemia, with long-term current use of June 05, 2025 10:48am Reason for Visit Admit Date Benign essential hypertension June 10:48am Chronic heart failure with p reserved ejection fraction (HFpEF) June 05, 2025 10:48am Class 3 severe obesity due t o excess calories with serious comorbidity and June 05, 2025 10:48am JOHN (generalized anxiety disorder) Octob er 2024 10:48am Lesion of skin of nose June 05, 2025 10:48am Mild episode of recurrent major depressi ve disorder June 05, 2025 10:48am Type 2 diabetes mellitus wit h hyperglycemia, with long-term current use of June 05, 2025 10:48am Chief Complaint Admit Date Cataract May 01, 2025 10 :13am Cataract May 15, 2025 8:06am Established Patient June 05, 2025 10 :48am Cataract June 12, 2025 8: 06am Additional Source Comments INFORMATION SOURCE (unrecogn ized section and content) DATE CREATED AUTHOR 02/07/2021 [facility] DATE CREATED AUTHOR AUTHOR'S ORGANIZ ATION 02/20/2021 [facility] DATE CREATED AUTHOR AUTHOR'S ORGANIZ ATION 06/06/2021 [facility] DATE CREATED AUTHOR AUTHOR'S ORGANIZ ATION 10/01/2021 [facility] DATE CREATED AUTHOR AUTHOR'S ORGANIZ ATION 10/06/2021 [facility] DATE CREATED AUTHOR AUTHOR'S ORGANIZ ATION 12/09/2022 [facility] DATE CREATED AUTHOR AUTHOR'S ORGANIZ ATION 01/13/2023 [facility] DATE CREATED AUTHOR AUTHOR'S ORGANIZ ATION 07/17/2024 [facility] DATE CREATED AUTHOR AUTHOR'S ORGANIZ ATION 02/04/2025 [facility] DATE CREATED AUTHOR AUTHOR'S ORGANIZ ATION 05/08/2025 [facility] DATE CREATED AUTHOR AUTHOR'S ORGANIZ ATION 05/16/2025 [facility] DATE CREATED AUTHOR AUTHOR'S ORGANIZ ATION 06/08/2025 [facility] DATE CREATED AUTHOR AUTHOR'S ORGANIZ ATION 06/21/2025 [facility] Ordered Prescriptions (unrec ognized section and content) PrescriptionSigDispensedRefillsStart DateEnd Date albuterol sulfate HFA 108 (90 Base) MCG/ACT inhaler Inhale 2 puffs into the lungs every 6 hours as needed for Wheezing or Shortness of Breath 1 each /09/2021 Scheduled Active and Recently Administ ered Medications (unrecognized section and content) Medication Order/ azithromycin (ZITHROMAX) 500 mg in dextrose 5% 250 mL IVPB (CANCELED) 500 mg, IntraVENous, EVERY 24 HOURS, First dose on Mon09/28/21 at 1400, Until Discontinued * 1505 (New Bag - Provider: Kaylan Mulligan, RN) * 1605 (Stopped - Provider: Kaylan Mulligan, GEORGINA) cefTRIAXone (ROCEPHIN) 1000 mg IVPB in 50 mL D5W minibag (CANCELED) 1,000 mg, IntraVENous, EVERY 24 HOURS, First dose on Mon09/28/21 at 1400, Until Discontinued * 1331 (New Bag - Provider: Mary Wong) * 1401 (Stopped - Provider: Kaylan Mulligan, GEORGINA) heparin (porcine) injection 5,000 Units 5,000 Units, SubCUTAneous, EVERY 8 HOURS SCHEDULED (3 times per day), First dose on Mon09/28/21 at 1400 * 0600 (Automatically Held - Provider: Terrance Smalls PA-C) * 1400 (Automatically Held - Provider: Terrance Samlls PA-C) * 1818 (Unheld by provider - Provider: Guido Salas DO) * 2109 (Given - Provider: Danica Platt RN) * 0609 (Given - Provider: Danica Platt RN) * 1510 (Given - Provider: Li Phelan RN) * 2245 (Given - Provider: Chinyere Aquino, GEORGINA) * 0556 (Given - Provider: Will Ro RN) * 1400 (Due - Provider: Guido Salas DO) * 2200 (Due - Provider: Guido Salas DO) insulin glargine (LANTUS) injection vial 20 Units 20 Units, SubCUTAneous, NIGHTLY, First dose on Mon10/01/21 at 2100 * 2058 (Given - Provider: Danica Platt RN) * 2104 (Given - Provider: Will Ro RN) * 2100 (Due) insulin lispro (HUMALOG) injection vial 0-18 Units 0-18 Units, SubCUTAneous, 4 TIMES DAILY BEFORE MEALS & NIGHTLY, First dose (after last modification) on Mon09/29/21 at 1700, High Dose Corrective Algorithm Glucose: Dose: 70-139 No Insulin 140-199 3 Units 200-249 6 Units 250-299 9 Units 300-349 12 Units 350-400 15 Units Over 400 18 Units * 0848 (Given - Provider: Mary Wong) * 1332 (Given - Provider: Mary Wong) * 1743 (Given - Provider: Mary Wong) * 2106 (Given - Provider: Danica Platt RN) * 0807 (Not Given - Provider: Li Phelan RN - Reason: Order parameters not met - Comment: BS 119) * 1118 (Not Given - Provider: Li Phelan RN - Reason: Order parameters not met - Comment: BS 122) * 1754 (Not Given - Provider: Li Phelan RN - Reason: Order parameters not met - Comment: BS 131) * 2105 (Given - Provider: Will Ro RN) * 0652 (Not Given - Provider: Will Ro RN - Reason: Order parameters not met - Comment: [id number]) * 1124 (Given - Provider: Li Phelan RN) * 1700 (Due) * 2100 (Due) potassium phosphate 30 mmol in dextrose 5 % 250 mL IVPB (COMPLETED) 30 mmol, IntraVENous, at 62.5 mL/hr, Administer over 240 Minutes, ONCE, On Mon10/01/21 at 0730, For1 dose * 0850 (New Bag - Provider: Mary Wong) * 1250 (Stopped - Provider: Mary Wong) Medication Order// sodium bicarbonate 100 mEq in dextrose 5 % 1,000 mL infusion (CANCELED) IntraVENous, at 50 mL/hr, CONTINUOUS, Starting on Mon09/30/21 at 1515 * 0850 (New Bag - Provider: Mary Wong) * 1838 (Rate/Dose Change - Provider: Mary Wong) Medication Order// acetaminophen (TYLENOL) 160 MG/5ML solution 650 mg 650 mg, Oral, EVERY 4 HOURS PRN, Pain Mild (1-3), Starting on Mon09/29/21 at 0739, Maximum dose of acetaminophen is 4000 mg from all sources in 24 hours. albuterol (PROVENTIL) nebulizer solution 2.5 mg 2.5 mg, Nebulization, As Directed - RT (PRN), Wheezing, Starting on Mon10/01/21 at 1028 * 2128 (Given - Provider: Azra Little RCP) [...] on Mon09/28/21 at 0944, For blood glucose levelless than 70 mg/dL. Check blood glucose every [...] treatment and recheck blood glucose in 15 minutesx2. If using Glucostabilizer, dose as instructed per [...] glucose gel. Repeat blood glucose in 15 minutes.If blood glucose is less than 70 mg/dL, repeat treatment and recheck blood glucose in 15 minutes x2and notify provider. iohexol (OMNIPAQUE 240) injection 50 mL (COMPLETED) 50 mL, Oral, IMG ONCE PRN, Other, 50ml of omnipaque 240 into 1000ml of water., Starting on Mon10/01/21 at 0822, For 1 dose * 1215 (Given - Provider: Mary Wong) loperamide (IMODIUM) capsule 2 mg 2 mg, Oral, 4 TIMES DAILY PRN, Diarrhea, Starting on Mon10/01/21 at 1600, After each loose stool. * 1106 (Given - Provider: Li Phelan RN) magnesium sulfate 1000 mg in dextrose 5% 100 mL IVPB 1,000 mg, IntraVENous, at 100 mL/hr, Administer over 1 Hours, PRN, Other, Magnesium IV Replacement,Starting on Mon09/28/21 at 0944, Mg Level Mg Replacement Action 1.4 to 1.6 1 gram IVPB x 2 doses (2grams total) 1.0 to 1.3 1 gram IVPB [...] Lab Replacement Action 3.1 to 3.5 40 mEqORAL x 1 Under 3.1 Refer to IV [...] further dilute if GI adverse effects occur. * 0113 (See Alternative - Provider: Danica Platt RN) * 1743 (See Alternative - Provider: Mary Wong) potassium [...] not for use in Patients with CrCl<30ml/min * 0113 (Given - Provider: Danica Platt RN - Comment: K 3.5) * 1743 (Given - Provider: Mary Wong) potassium chloride 10 mEq/100 mL IVPB (Peripheral Line)(Linked Group 1) 10 mEq, IntraVENous, at 100 mL/hr, PRN, Per Potassium Replacement Protocol, Starting on Mon09/30/21at 1607, K Lab Replacement Action 2.7-3.0 10 Meq IVPB x 6 doses (60 Meq Total) <2.7 CALL PHYSICIAN and 10 Meq IVPB x 6 doses (60 Meq Total) Infuse at 10meq/hr Repeat Potassium lab 1 hour after final administration. Protocol not for use in Patients with CrCl<30ml/min * 0113 (See Alternative - Provider: Danica Platt RN) * 1743 (See Alternative - Provider: Mary Wong) sodium [...] mg/dL 20 mmol IVPB over 6 hours Order Group 1: potassium chloride (KLOR-CON M) extended release tablet 40 mEqJump to med 40 mEq, Oral, PRN, Per Potassium Replacement Protocol, Starting on Mon09/30/21 at 1607
Maygive oral solution if patient unable to tolerate tablet K Lab Replacement Action 3.1-3.5 40 Meq ORAL x 1 &nb sp; &nb sp; 2.7-3. 0 Refer to IV replacement protocol & nbsp; & nbsp; <2.7 Refer to IV replacement protocol &nbsp ; Recheck K level in AM &nbs p; &nbs p; Protocol not for use in Patients with CrCl& lt;30ml/min
Or potassium bicarb-citric acid (EFFER-K) effervescent tablet 40 mEqJump to med 40 mEq, Oral, PRN, Per Potassium Replacement Protocol, Starting on Joaquina 09/30/21 at 1607
Administer as alternative if patient unable to tolerate oral tablet. K Lab & amp;nbsp; & amp;nbsp;Replacement Action 3.1 to 3.5 &am p;nbsp; 40 mEq ORAL x 1 Under 3.1 Refer to IV replacement protocol Recheck K level in AM. Protocol not f or use in patients with CrCl less than 30 mL/min. Do not chew or crush. Dissolve flavored tablets completely in 3 to 4 ounces of cold water; unflavored tablets may be dissolved in 3to 4 ounces of cold juice. Patient to sip slowly over a 5 to 10 minute period. May further dilute if GI adverse effects occur.
Or potassium chloride 10 mEq/100 mL IVPB (Peripheral Line)Jump to med 10 mEq, IntraVENous, at 100 mL/hr, PRN, Per Potassium Replacement Protocol, Starting on Joaquina 09/30/21at 1607
K Lab Replacement Action 2.7- 3.0 10 Meq IVPB x 6 doses &nbsp ; (60 Meq Total) <2.7 &am p;nbsp; CALL PHYSICIAN and &am p;nbsp; &am p;nbsp; 10 Meq IVPB x 6 doses & amp;nbsp; & amp;nbsp; (60 Meq Total) Infuse at 10meq/hr Repeat Potassium lab 1 hourafter final administration. Protocol not for use in Patients with CrCl<30ml/min<b r> Group 2: sodium phosphate 10 mmol in dextrose 5 % 250 mL IVPBJump to med 10 mmol, IntraVENous, at 62.5 mL/hr, Administer over 240 Minutes, PRN, Phosphorus IV Replacement, Starting on Mon09/28/21 at 0944
Phos level Phosphorus Replacement Action 2.3 to 2.7mg/dL 10 mmol IVPB over 4 hours 1.5 [...]
Phos level Phosphorus Replacement Action 2.3 to 2.7mg/dL 10 mmol IVPB over 4 hours 1.5 [...]
Phos level Phosphorus Replacement Action 2.3 to 2.7mg/dL 10 mmol IVPB over 4 hours 1.5 to 2.2 mg/dL 15 mmol IVPB over 4 hours Below 1.5 mg/dL 20 mmol IVPB over 6 hours
Medication Order// atorvastatin (LIPITOR) tablet 40 mg 40 mg, oral, Nightly, First dose on Joaquina 12/21/23 at 2200, Look-alike/sound-alike medication - verifyindication for use. * 2114 (Given - Provider: Clarita Morataya RN) * 2140 (Given - Provider: Archana Hernandez, GEORGINA) * 2199 (Due) buPROPion XL (WELLBUTRIN XL) 24 hr tablet 300 mg 300 mg, oral, Daily, First dose on Joaquina 12/21/23 at 0900, Look-alike/sound-alike medication - verify indication for use. Do not crush or chew. * 0921 (Given - Provider: Jared Huerta) * 0843 (Given - Provider: Jania Sierra RN) * 0820 (Given - Provider: Lindsey Bryant RN) cefTRIAXone (ROCEPHIN) IVPB 1000 mg/50 mL in iso-osmotic dextrose (20 mg/mL premix) 1,000 mg, intravenous, at 100 mL/hr, Administer over 30 Minutes, Every 24 hours, First dose on Joaquina 12/21/23 at 2000, Look-alike/sound-alike medication - verify indication for use. Do not co-administerwith calcium-containing solutions such as Lactated Ringers., Indication: UTI * 2123 (New Bag - Provider: Clarita Morataya RN) * 2153 (Stop Bag - Provider: Clarita Morataya RN) * 2145 (New Bag - Provider: Archana Hernandez, GEORGINA) * 2215 (Stop Bag - Provider: Archana Hernandez, GEORGINA) * 1999 (Due) cholecalciferol (vitamin D3) tablet 400 Units 400 Units, oral, Daily, First dose on Joaquina 12/21/23 at 0900 * 0921 (Given - Provider: Jared Huerta) * 0843 (Given - Provider: Jania Sierra, RN) * 0820 (Given - Provider: Lindsey Bryant, RN) enoxaparin (LOVENOX) syringe 40 mg 40 mg, subcutaneous, Every 12 hours, First dose (after last reorder) on Joaquina 12/21/23 at 0600, Look-alike/sound-alike medication - verify indication for use. * 0529 (Given - Provider: Anh Dang, RN) * 1723 (Given - Provider: Arlene Smallwood, GEORGINA) * 0529 (Given - Provider: Clarita Morataya, GEORGINA) * 1800 (Not Given - Provider: Jania Sierra RN - Reason: Patient/family refused) * 0503 (Given - Provider: Archana Hernandez, GEORGINA) * 1800 (Due) insulin glargine (LANTUS, SEMGLEE) injection pen 15 Units 15 Units, subcutaneous, Daily, First dose on [facility] 12/21/23 at 0900, Look-alike/sound-alike medication- verify indication for use. Prime with 2 units of insulin prior to administration. Basal (long acting) insulin for subcutaneous administration only. Do not mix with any other insulin. Pre-filled pens stable 28 days at room temperature. * 0923 (Given - Provider: Jared Huerta) * 0843 (Given - Provider: Jania Sierra, GEORGINA) * 0815 (Given - Provider: Lindsey Bryant, GEORGINA) insulin lispro (HumaLOG) injection 2-10 Units 2-10 Units, subcutaneous, 3 times daily with meals, First dose on [facility] 12/21/23 at 0800, Daytime hyperglycemia dosing. For blood glucose 151-200 mg/dL, give 2 units. For blood glucose 201-250 mg/dL, give 4 units. For blood glucose 251-300 mg/dL, give 6 units. For blood glucose 301-350 mg/dL, give 8 units. For blood glucose 351-400 mg/dL, give 10 units. Give even if NPO or meals skipped. Do NOT givemore often then every 4 hours when NPO. Notify prescriber if blood glucose greater than 400 mg/dL. Look-alike/sound-alike medication - verify indication for use. Prime with 2 units of insulin prior to administration. Prandial/supplemental Insulin. Pre-filled pens stable 28 days at room temperature.Insulin lispro should be administered within 15 minutes before or immediately after a meal. * 0922 (Given - Provider: Jared Huerta) * 1158 (Given - Provider: Arlene Smallwood, GEORGINA) * 1723 (Given - Provider: Arlene Smallwood, RN) * 0843 (Given - Provider: Jania Sierra, GEORGINA) * 1152 (Given - Provider: Jania Sierra RN) * 1843 (Given - Provider: Jania Sierra RN - Comment: 402 after eating MAGISTRATE JUDGE notified no new orders) * 0815 (Given - Provider: Lindsey Bryant, GEORGINA) * 1134 (Given - Provider: Lindsey Bryant RN) * 1700 (Due) insulin lispro (HumaLOG) injection 2-8 Units 2-8 Units, subcutaneous, Nightly, First dose on Mon12/20/23 at 2230, Bedtime hyperglycemia dosing. For blood glucose 201-250 mg/dL, give 2 units. For blood glucose 251-300 mg/dL, give 4 units. For blood glucose 301-350 mg/dL, give 6 units. For blood glucose 351-400 mg/dL, give 8 units. Give even ifNPO or meals skipped. Do NOT give more often then every 4 hours when NPO. Notify prescriber if blood glucose greater than 400 mg/dL. Look-alike/sound-alike medication - verify indication for use. Prime with 2 units of insulin prior to administration. Prandial/supplemental Insulin. Pre-filled pens stable 28 days at room temperature. Insulin lispro should be administered within 15 minutes before orimmediately after a meal. * 2117 (Given - Provider: Clarita Morataya RN) * 2140 (Given - Provider: Archana Hernandez RN - Comment: bs 269) * 220 (Due) lamoTRIgine (LaMICtal) tablet 200 mg 200 mg, oral, Daily, First dose on Mon12/21/23 at 0900, Look-alike/sound-alike medication - verify indication for use., Indications: depression associated with bipolar disorder * 0921 (Given - Provider: Jared Huerta) * 0843 (Given - Provider: Jania Sierra RN) * 0820 (Given - Provider: Lindsey Bryant, GEORGINA) lisinopriL (PRINIVIL,ZESTRIL) tablet 2.5 mg 2.5 mg, oral, Daily, First dose on Jo[place]ina 12/21/23 at 0900, Look-alike/sound-alike medication - verify indication for use. * 0921 (Given - Provider: Jared Huerta) * 0843 (Given - Provider: Jania Sierra RN) * 0820 (Given - Provider: Lindsey Bryant RN) pantoprazole (PROTONIX) EC tablet 40 mg 40 mg, oral, Every morning before breakfast, First dose on Jo[place]ina 12/21/23 at 0700, Look-alike/sound-alike medication - verify indication for use. If patient is receiving enteral feeding, consider alternative PPI or continue IV pantoprazole until the delayed-release tablet can be taken orally, Indication: Stress Ulcer Prophylaxis (Contraindication to H2RA) * 0531 (Given - Provider: Anh Dang RN) * 0529 (Given - Provider: Clarita Morataya RN) * 0700 (Canceled Entry - Provider: Clarita Morataya RN) * 0503 (Given - Provider: Archana Hernandez, GEORGINA) pioglitazone (ACTOS) tablet 45 mg 45 mg, oral, Daily, First dose on Jo[place]ina 12/21/23 at 0900, Hold dose and notify prescriber if blood glucose is less than 100 mg/dL or patient status has changed to NPO. Look-alike/sound-alike medication - verify indication for use. * 0921 (Given - Provider: Jared Huerta) * 0843 (Given - Provider: Jania Sierra RN) * 0821 (Given - Provider: Lindsey Bryant, GEORGINA) prazosin (MINIPRESS) capsule 2 mg 2 mg, oral, Nightly, First dose on Jo[place] 12/21/23 at 2200 * 2200 (Not Given - Provider: Clarita Morataya RN - Reason: Other - Comment: low BP) * 2141 (Given - Provider: Archana Hernandez, GEORGINA) * 2200 (Due) sertraline (ZOLOFT) tablet 100 mg 100 mg, oral, Daily, First dose on Jo[place]ina 12/21/23 at 0900, Look-alike/sound-alike medication - verify indication for use. * 0922 (Given - Provider: Jared Huerta) * 0843 (Given - Provider: Jania Sierra, GEORGINA) * 0821 (Given - Provider: Lindsey Bryant, GEORGINA) Medication Order// sodium chloride 0.9 % infusion 100 mL/hr, intravenous, Continuous, Starting on Mon12/20/23 at 2215 * 0106 (Rate/Dose Verify - Provider: Anh Dang, GEORGINA) * 1719 (Rate/Dose Change - Provider: Clarita Morataya, GEORGINA) * 1809 (Rate/Dose Change - Provider: Clarita Morataya RN) * 1810 (Stop Bag - Provider: Clarita Morataya RN) * 0404 (Stop Bag - Provider: Clarita Morataya RN) * 0404 (New Bag - Provider: Clarita Morataya RN) * 0713 (Rate/Dose Verify - Provider: Clarita Morataya RN) Medication Order// acetaminophen (TYLENOL) tablet 650 mg 650 mg, oral, Every 4 hours PRN, Temperature greater than 38.3 C, Starting on Mon12/20/23 at 2211, [Warning: Total Acetaminophen not to exceed more than 4 grams (4000 mg) in 24 hours] * 1134 (Given - Provider: Lindsey Bryant, GEORGINA) alum-mag hydroxide-simeth (MAALOX) 200-200-20 mg/5 mL suspension 30 mL 30 mL, oral, 4 times daily after meals and at bedtime as needed, dyspepsia, Starting on Mon12/20/23at 2212, Look-alike/sound-alike medication - verify indication for [...] glucose less than 70 mg/dL and unconscious orNPO with IV access, Starting on Mon12/20/23 at [...] not available. If NPO, initiate IV 5% Dextr ose/Water at 100 mL/hr and contact prescriber for additional orders. If blood glucose is not greater than 70 mg/dL after initial treatment, repeat treatment. ipratropium-albuteroL (DUONEB) 0.5 mg-3 mg(2.5 mg base)/3 mL nebulizer solution 3 mL 3 mL, nebulization, Every 6 hours PRN, wheezing, Starting on Mon12/20/23 at 2219, Implement INPATIENT/ED Bronchodilator Clinical Practice Guidelines? Yes, Document: \[facility].org\epic\[email or web address]_Reference\Orders\Respiratory Care Guidelines\CPG Bronchodilator 2020.pdf magnesium sulfate IVPB 2000 mg/50 mL in iso-osmotic water (40 mg/mL premix) 2,000 mg, intravenous, at 25 mL/hr, Administer over 120 Minutes, As needed, Magnesium level 1.7 to 1.9 mg/dL, or Ionized Magnesium level 0.45 to 0.5 mmol/L., Starting on Mon12/20/23 at 2217, Recheck magnesium level 4 hours after infusion complete. With each magnesium result continue the replacementorders as needed. magnesium sulfate IVPB 4000 mg/100 mL in iso-osmotic water (40 mg/mL premix) 4,000 mg, intravenous, at 25 mL/hr, Administer over 240 Minutes, As needed, Magnesium level 1.6 mg/dL or less, or Ionized Magnesium level 0.44 mmol/L or less, Starting on Mon12/20/23 at 2217, Recheckmagnesium level 4 hours after infusion complete. With each magnesium result continue the replacement orders as needed. ondansetron (PF) (ZOFRAN) injection 4 mg 4 mg, intravenous, Every 6 hours PRN, nausea, vomiting, Starting on Mon12/20/23 at 2211, Administerover 2-5 minutes. potassium chloride (K-TAB,KLOR-CON) CR tablet 30-50 mEq(Linked Group 1) 30-50 mEq, oral, As needed, potassium supplementation, Starting on Mon12/20/23 at 2217, Progress tooral potassium replacement when patient tolerating oral intake. [...] supplementation, Starting on Mon12/20/23 at 2217, Progress tooral potassium replacement when patient tolerating oral intake. [...] Minutes, As needed, line care, line care afterIVPB administration, Starting on Mon12/20/23 at 2211 sodium chloride 0.9 % infusion 20 mL/hr, intravenous, Continuous PRN, to maintain patency of lines, Starting on Mon12/20/23 at 2211 Order Group 1: potassium chloride (K-TAB,KLOR-CON) CR tablet 30-50 mEqJump to med 30-50 mEq, oral, As needed, potassium supplementation, Starting on Mon12/20/23 at 2217, Progress tooral potassium replacement when patient tolerating oral intake. [...] supplementation, Starting on Mon12/20/23 at 2217, Progress tooral potassium replacement when patient tolerating oral intake. [...] Care Teams (unrecognized sec tion and content) Team MemberRelationshipSpecialtyStart DateEnd Date Diaz Dalton MD [address] [place] [address] PCP - GeneralFamily Medicine09/28/21Team MemberRelationshipSpecialtyStart DateEnd Date Diaz Dalton MD [address] [place] [address] PCP - GeneralFamily Medicine09/25/23Team MemberRelationshipSpecialtyStart DateEnd Date Diaz Dalton MD [address] [place] [address] PCP - GeneralFamily Medicine09/25/23Team MemberRelationshipSpecialtyStart DateEnd Date Diaz Dalton MD [address] [place] [address] PCP - GeneralFamily Medicine09/25/23Team MemberRelationshipSpecialtyStart DateEnd Date Diaz Dalton MD [address] [place] [address] PCP - GeneralFamily Medicine09/25/23Team MemberRelationshipSpecialtyStart DateEnd Date Diaz Dalton MD [address] [place] [address] PCP - GeneralFamily Medicine09/25/23Team MemberRelationshipSpecialtyStart DateEnd Date Diaz Dalton MD [address] [place] [address] PCP - GeneralFamily Medicine09/25/23Team MemberRelationshipSpecialtyStart DateEnd Date Diaz Dalton MD [address] [place] [address] PCP - GeneralFamily Anonhwje04/25/24Team MemberRelationshipSpecialtyStart Date End Date Diaz Dalton MD [address] [place] [address] PCP - GeneralFamily Medicine09/25/23Team MemberRelationshipSpecialtyStart DateEnd Date Diaz Dalton MD [address] [place] [address] PCP - GeneralFamily Medicine09/25/23Team MemberRelationshipSpecialtyStart DateEnd Date Diaz Dalton MD [address] [place] [address] PCP - GeneralFamily Medicine09/25/23Team MemberRelationshipSpecialtyStart DateEnd Date Diaz Dalton MD [address] [place] [address] PCP - GeneralFamily Medicine09/25/23Team MemberRelationshipSpecialtyStart DateEnd Date Diaz Dalton MD [address] [place] [address] PCP - GeneralFamily Medicine09/25/23Team MemberRelationshipSpecialtyStart DateEnd Date Diaz Dalton MD [address] [place] [address] PCP - GeneralFamily Medicine09/25/23Team MemberRelationshipSpecialtyStart DateEnd Date Diaz Dalton MD [address] [place] [address] PCP - GeneralFamily Medicine09/25/23Team MemberRelationshipSpecialtyStart DateEnd Date Diaz Dalton MD [address] [place] [address] PCP - GeneralFamily Medicine09/25/23Team MemberRelationshipSpecialtyStart DateEnd Date Diaz Dalton MD [address] [place] [address] PCP - GeneralFamily Medicine09/25/23Team MemberRelationshipSpecialtyStart DateEnd Date Diaz Dalton MD [address] [place] [address] PCP - GeneralFamily Medicine09/25/23Team MemberRelationshipSpecialtyStart DateEnd Date Diaz Dalton MD [address] [place] [address] PCP - GeneralFamily Medicine09/25/23Team MemberRelationshipSpecialtyStart DateEnd Date Diaz Dalton MD [address] [place] [address] PCP - GeneralFamily Medicine09/25/23Team MemberRelationshipSpecialtyStart DateEnd Date Diaz Dalton MD [address] [place] [address] PCP - GeneralFamily Medicine09/25/23Team MemberRelationshipSpecialtyStart DateEnd Date Diaz Dalton MD [address] [place] [address] PCP - GeneralFamily Medicine09/25/23Team MemberRelationshipSpecialtyStart DateEnd Date Diaz Dalton MD [address] [place] [address] PCP - GeneralFamily Medicine09/25/23Team MemberRelationshipSpecialtyStart DateEnd Date Diaz Dalton MD [address] [place] [address] PCP - GeneralFamily Medicine09/25/23Team MemberRelationshipSpecialtyStart DateEnd Date Diaz Dalton MD [address] [place] [address] PCP - GeneralFamily Medicine09/25/23Team MemberRelationshipSpecialtyStart DateEnd Date Diaz Dalton MD [address] [place] [address] PCP - GeneralFamily Medicine09/25/23Team MemberRelationshipSpecialtyStart DateEnd Date Diaz Dalton MD [address] [place] [address] PCP - GeneralFamily Ksyetyes51/25/24Team MemberRelationshipSpecialtyStart Date End Date Diza Dalton MD [address] [place] [address] PCP - GeneralFamily Qpzkwhdg25/25/24Team MemberRelationshipSpecialtyStart Date End Date Diaz Dalton MD [address] [place] [address] PCP - GeneralFamily Pdbwrulf24/25/24Team MemberRelationshipSpecialtyStart Date End Date Diaz Dalton MD [address] [place] [address] PCP - GeneralFamily Mopgcrtu49/25/24Team MemberRelationshipSpecialtyStart Date End Date Diaz Dalton MD [address] [place] [address] PCP - GeneralFamily Medicine09/25/23Team MemberRelationshipSpecialtyStart DateEnd Date Diaz Dalton MD [address] [place] [address] PCP - GeneralFamily Medicine09/24/21Team MemberRelationshipSpecialtyStart DateEnd Date Diaz Dalton MD [address] [place] [address] PCP - GeneralFamily Medicine09/24/21Team MemberRelationshipSpecialtyStart DateEnd Date Diaz Dalton MD [address] [place] [address] PCP - GeneralFamily Medicine09/24/21Team MemberRelationshipSpecialtyStart DateEnd Date Diaz Dalton MD [address] [place] [address] PCP - GeneralFamily Medicine09/24/21Team MemberRelationshipSpecialtyStart DateEnd Date Diaz Dalton MD [address] [place] [address] PCP - GeneralFamily Medicine09/24/21Team MemberRelationshipSpecialtyStart DateEnd Date Diaz Dalton MD [address] [place] [address] PCP - GeneralFamily Medicine09/24/21Team MemberRelationshipSpecialtyStart DateEnd Date Diaz Dalton MD [address] [place] [address] PCP - GeneralFamily Medicine09/24/21Team MemberRelationshipSpecialtyStart DateEnd Date Diaz Dalton MD [address] [place] [address] PCP - GeneralFamily Medicine09/24/21Team MemberRelationshipSpecialtyStart DateEnd Date Diaz Dalton MD [address] [place] [address] PCP - GeneralFamily Medicine09/24/21Team MemberRelationshipSpecialtyStart DateEnd Date Diaz Dalton MD [address] [place] [address] PCP - GeneralFamily Medicine09/24/21Team MemberRelationshipSpecialtyStart DateEnd Date Diaz Dalton MD [address] [place] [address] PCP - GeneralFamily Medicine09/24/21Team MemberRelationshipSpecialtyStart DateEnd Date Diaz Dalton MD [address] [place] [address] PCP - GeneralFamily Medicine09/24/21Team MemberRelationshipSpecialtyStart DateEnd Date Diaz Dalton MD [address] [place] [address] PCP - GeneralFamily Medicine09/24/21Team MemberRelationshipSpecialtyStart DateEnd Date Diaz Dalton MD PCP - GeneralFamily Medicine09/24/21Team MemberRelationshipSpecialtyStart DateEnd Date Diaz Dalton MD PCP - GeneralFamily Medicine09/24/21Team MemberRelationshipSpecialtyStart DateEnd Date Diaz Dalton MD PCP - GeneralFamily Medicine09/24/21Team MemberRelationshipSpecialtyStart DateEnd Date Diaz Dalton MD PCP - GeneralFamily Medicine05/16/24Team MemberRelationshipSpecialtyStart DateEnd Date Diaz Dalton MD [address] [place] [address] PCP - GeneralFamily Medicine05/28/24Team MemberRelationshipSpecialtyStart DateEnd Date Diaz Dalton MD [address] [place] [address] PCP - GeneralFamily Medicine05/28/24Team MemberRelationshipSpecialtyStart DateEnd Date Diaz Dalton MD [address] [place] [address] PCP - GeneralFamily Medicine05/28/24Team MemberRelationshipSpecialtyStart DateEnd Date Diaz Dalton MD [address] [place] [address] PCP - GeneralFamily Medicine05/28/24Team MemberRelationshipSpecialtyStart DateEnd Date Diaz Dalton MD [address] [place] [address] PCP - GeneralFamily Bmukgwwj60/25/24Team MemberRelationshipSpecialtyStart Date End Date Diaz Dalton MD [address] [place] [address] PCP - GeneralFamily Ssohrnix39/25/24Team MemberRelationshipSpecialtyStart Date End Date Diaz Dalton MD [address] [place] [address] PCP - GeneralFamily Ofpgytvl15/25/24Team MemberRelationshipSpecialtyStart Date End Date Diaz Dalton MD [address] [place] [address] PCP - GeneralFamily Vsmlhali87/25/24Team MemberRelationshipSpecialtyStart Date End Date Diaz Dalton MD [address] [place] [address] PCP - GeneralFamily Hqtxtafx94/25/24Team MemberRelationshipSpecialtyStart Date End Date Diaz Dalton MD [address] [place] [address] PCP - GeneralFamily Medicine09/25/23Team MemberRelationshipSpecialtyStart DateEnd Date Diaz Dalton MD [address] [place] [address] PCP - GeneralFamily Medicine09/25/23Team MemberRelationshipSpecialtyStart DateEnd Date Diaz Dalton MD [address] [place] [address] PCP - GeneralFamily Medicine09/25/23Team MemberRelationshipSpecialtyStart DateEnd Date Diaz Dalton MD [address] [place] [address] PCP - GeneralFamily Medicine09/25/23Team MemberRelationshipSpecialtyStart DateEnd Date Diaz Dalton MD PCP - GeneralFamily Medicine10/27/24Team MemberRelationshipSpecialtyStart DateEnd Date Diaz Dalton MD PCP - GeneralFamily Medicine10/27/24Team MemberRelationshipSpecialtyStart DateEnd Date Diaz Dalton MD PCP - GeneralFamily Medicine10/27/24Team MemberRelationshipSpecialtyStart DateEnd Date Diaz Dalton MD PCP - GeneralFamily Medicine10/27/24Team MemberRelationshipSpecialtyStart DateEnd Date Diaz Dalton MD [address] [place] [address] PCP - GeneralFamily Medicine09/25/23Team MemberRelationshipSpecialtyStart DateEnd Date Diaz Dalton MD [address] [place] [address] PCP - GeneralFamily Medicine09/25/23Team MemberRelationshipSpecialtyStart DateEnd Date Diaz Dalton MD PCP - GeneralFamily Medicine10/27/24Team MemberRelationshipSpecialtyStart DateEnd Date Diaz Dalton MD [address] [place] [address] PCP - GeneralFamily Medicine09/25/23Team MemberRelationshipSpecialtyStart DateEnd Date Diaz Dalton MD [address] [place] [address] PCP - GeneralFamily Medicine09/25/23Team MemberRelationshipSpecialtyStart DateEnd Date Diaz Dalton MD [address] [place] [address] PCP - GeneralFamily Medicine09/25/23Team MemberRelationshipSpecialtyStart DateEnd Date Diaz Dalton MD PCP - GeneralFamily Medicine10/27/24Team MemberRelationshipSpecialtyStart DateEnd Date Diaz Dalton MD PCP - GeneralFamily Medicine10/27/24Team MemberRelationshipSpecialtyStart DateEnd Date Diaz Dalton MD PCP - GeneralFamily Medicine10/27/24Team MemberRelationshipSpecialtyStart DateEnd Date Diaz Dalton MD [address] [place] [address] PCP - GeneralFamily Medicine09/25/23Team MemberRelationshipSpecialtyStart DateEnd Date Diaz Dalton MD PCP - GeneralFamily Medicine10/27/24Team MemberRelationshipSpecialtyStart DateEnd Date Diaz Dalton MD PCP - GeneralFamily Medicine10/27/24Team MemberRelationshipSpecialtyStart DateEnd Date Diaz Dalton MD [address] [place] [address] PCP - GeneralFamily Medicine09/25/23Team MemberRelationshipSpecialtyStart DateEnd Date Diaz Dalton MD [address] [place] [address] PCP - GeneralFamily Medicine09/25/23Team MemberRelationshipSpecialtyStart DateEnd Date Diaz Dalton MD [address] [place] [address] PCP - GeneralFamily Medicine09/25/23Team MemberRelationshipSpecialtyStart DateEnd Date Diaz Dalton MD [address] [place] [address] PCP - GeneralFamily Medicine09/25/23Team MemberRelationshipSpecialtyStart DateEnd Date Diaz Dalton MD [address] [place] [address] PCP - GeneralFamily Medicine09/25/23Team MemberRelationshipSpecialtyStart DateEnd Date Diaz Dalton MD [address] [place] [address] PCP - GeneralFamily Medicine09/25/23Team MemberRelationshipSpecialtyStart DateEnd Date Diaz Dalton MD [address] [place] [address] PCP - GeneralFamily Medicine09/25/23Team MemberRelationshipSpecialtyStart DateEnd Date Diaz Dalton MD [address] [place] [address] PCP - GeneralFamily Medicine09/25/23Team MemberRelationshipSpecialtyStart DateEnd Date Diaz Dalton MD [address] [place] [address] PCP - GeneralFamily Medicine09/25/23Team MemberRelationshipSpecialtyStart DateEnd Date Diaz Dalton MD [address] [place] [address] PCP - GeneralFamily Medicine09/25/23Team MemberRelationshipSpecialtyStart DateEnd Date Diaz Dalton MD [address] [place] [address] PCP - GeneralFamily Medicine09/25/23Team MemberRelationshipSpecialtyStart DateEnd Date Diaz Dalton MD [address] [place] [address] [facility]/23Team MemberRelationshipSpecialtyStart DateEnd Date Diaz Dalton MD [facility] [place] [address] PCP - [facility]09/25/23Team MemberRelationshipSpecialtyStart DateEnd Date Diaz Dalton MD PCP - [facility]10/27/24 Team Status: Active Member Role Status Dates Diaz Dalton MD Primary Care Provider Active Team Status: Inactive Member Role Status Dates Diaz Dalton MD Primary Care Provider Active S tart: May 01, 2025 End: May 01, 2025Arsalan Curran ProviderActiveStart: May 01, 2025 End: May 01, 2025Team MemberRelationshipSpecialtyStart DateEnd Date Diaz Dalton MD PCP - [facility]10/27/24Team MemberRelationshipSpecialtyStart DateEnd Date Diaz Dalton MD PCP - [facility]10/27/24Team MemberRelationshipSpecialtyStart DateEnd Date Diaz Dalton MD PCP - [facility]10/27/24 Team Status: Inactive Member Role Status Dates Diaz Dalton MD Primary Care Provider Active S tart: May 15, 2025 End: May 15, 2025Arsalan Curran ProviderActiveStart: May 15, 2025 End: May 15, 2025Team MemberRelationshipSpecialtyStart DateEnd Date Diaz Dalton MD PCP - [facility] Medicine09/25/23Team MemberRelationshipSpecialtyStart DateEnd Date Diaz Dalton MD PCP - [facility] Medicine09/25/23Team MemberRelationshipSpecialtyStart DateEnd Date Diaz Dalton MD PCP - [facility] Medicine09/25/23Team MemberRelationshipSpecialtyStart DateEnd Date Diaz Dalton MD PCP - [facility]09/25/23 Team Status: Inactive Member Role Status Dates Diaz Dalton MD Primary Care Provider Active S tart: June 05, 2025 End: June 05, 2025Arsalan Rutherford ProviderActiveStart: June 05, 2025 End: June 05, 2025Team MemberRelationshipSpecialtyStart DateEnd Date Diaz Dalton MD PCP - [facility]10/27/24 Team Status: Inactive Member Role Status Dates Diaz Dalton MD Primary Care Provider Active S tart: June 12, 2025 End: June 12, 2025Arsalan Curran ProviderActiveStart: June 12, 2025 End: June 12, 2025 Reason for Visit (unrecogniz ed section and content) ReasonCommentsPost-opReasonCommentsAmenorrheaReasonOnset DateCommentsmedical bfqddmeqc79/30/2024ReasonCommentsWound CheckS/P Cath 06/26/24ReasonComments Follow-upReasonOnset DateCommentsMed Qkntky294ReasonOnset DateCommentsMed Knsepp394ReasonCommentsFollow-up[facility] f/UPReasonCommentsWell Women VisitReasonCommentsMed RefillReasonCommentsencounter to discuss test results ReasonCommentsFollow-tp9gZuspdioyskQvdxlhNkngyftmMkxd PainFell 05/15/24Reason CommentsPainReasonOnset DateCommentsMed Oqaogg894ReasonOnset DateComments Med Toheoz2009/19/2024ReasonOnset DateCommentsMed Wchlat3709/23/2024ReasonOnset Date CommentsMed Ldikjf7309/25/2024ReasonCommentsFollow-up3 MONTHSShortness of BreathON EXERTIONReasonCommentsFoot PainCarissa Santos 44yo. Patient relates her left foot is always numb, started about 9 months ago. NKI.ReasonCommentsCoughDenies Shortness of BreathDeniesWheezingDeniesSpecialtyDiagnoses / ProceduresReferred By ContactReferred To ContactPulmonary Medicine Diagnoses Mediastinal lymphadenopathy Ryan Mcneal MD [address] [place] [address] [facility] [address] [place] [phone] Referral IDStatusReasonStart DateExpiration DateVisits RequestedVisits [id number] Review Specialty Services Required /[id number] of BreathSpecialtyDiagnoses / ProceduresReferred By ContactReferred To Contact Diagnoses SOB (shortness of breath) Hyperglycemia Acute cystitis without hematuria Ezequiel Graff MD [address] [place] [address] Referral IDStatusReasonStart DateExpiration DateVisits RequestedVisits [id number]-dgRhcmfjhsnnc lymphadenopathyCXR 1 VW: 7Bronch: 4PFT: not completedLabs: not completedSpecialty Diagnoses / ProceduresReferred By ContactReferred To ContactPulmonary Medicine Diagnoses Hypoxia Eddie Zurita, CYTOLOGY TEACHER[employer] [address] [place] [address] Lindsay Arrieta, DO [address] [place] [address] Referral IDStatusReasonStart DateExpiration DateVisits RequestedVisits [id number] Review Specialty Services Required /[id number] RefillReasonCommentsSleep ApneaNo previous sleep studyNo PAP therpayArrived on 2Lnc of O2Uses 3Lnc of O2 at HSReasonOnset DateCommentsSleep Lab4Comp PSG/PAPReasonCommentsFollow-upMediastinal lymphadenopathyCT: 04/23/2024On 2Lnc of O2 on exertion, on 3Lnc of O2 at nightArrived on 3Lnc of A3DvdmqmKmqii DateCommentsCardiac Cath4Reason CommentsFollow-upEST PT F/U CATH DONE L/S LLD SCHED W/PTReasonOnset DateComments Abnormal Lab4ReasonOnset DateCommentsCRITICAL LAB4Reason CommentsSleep ApneaCompliance/Setup: 09/19/2024DME: HartArrived on 3Lnc of O2, on 3Lnc of O2 on exertionReasonCommentsFollow-up3mo ov, l/s LLD - no labs/testing - appt sched w/ ptReasonCommentsFollow-up3m f/upLeft knee pain DepressionCoughWith sore throatReasonCommentsPainReasonOnset DateCommentsPPMM oojxoqww77/02/2025ReasonOnset DateCommentsin pain02/27/2025ReasonComments Follow-upRight upper lobe nodule, c/o increased SOB, using TrelegyShortness of BreathCurrently 3 liters with PO and 3 liters with concentratorCoughNot really WheezingnoneReasonCommentsGenital WartsReasonCommentsFollow-upReasonOnset Date CommentsMed Hjozzb0803/24/2025ReasonOnset DateCommentsre: PT so far03/28/2025 ReasonOnset DateCommentscalled and said that therapy is making her pain worse 03/27/2025ReasonOnset DateCommentsCx PT 04/07/2508ReasonCommentsLeft Ovarian PainReasonOnset DateCommentsMedial aspect of her eye and nose04/23/2025 ReasonCommentsFollow-upPatient needs F2F notes for recent home O2 evaluation per [facility] O2 Evaluation: 05/07/2025DME: [place] on 3Lnc of R5Dfvbpf CommentsPre-op VisitReasonOnset DateComments? vdmahnk5205/29/2025ReasonOnset Date CommentsSurgical Or Dental Dvmfkfpar27/06/2025 Goals (unrecognized section and content) Goals may be documented in a n alternate section FOR RECORDS PERTAINING TO PATIENTS WHO ARE [...] BE BASED ON THE PRIMARY CLINICAL RECORDS. [facility] [employer] provides no warranty or guarantee of the accuracy or completeness of information in this document.
== END 2025-07-02 12:05 | disposition home or self-care (01) ==
LOC: LAB 12:05
PROVIDERS: PCP Family Medicine; Visit Provider Family Medicine
DX: E11.65 Type 2 diabetes mellitus with hyperglycemia (principal); Z79.4 Long term (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 insulin
CPT/HCPCS: 36415; 83036

== ENCOUNTER 2025-07-21 18:47 | Emergency (ER) | payer MEDICAID, SELFPAY ==
[2025-07-21 18:49] VITALS: BP 156/104; PULSE 93; TEMP 36.7; O2SAT 97; BMI 38.9
--- NOTE | 2025-07-21 19:13 | PC.NURSE ---
Pt has a pustule surrounded by redness on the R side of the lower lip. States the pain extends into her mouth.
--- OUTSIDE RECORDS SUMMARY | 2025-07-21 19:27 | XMS_ITS | Clinical Summary ---
Author Organization [facility] Address [address], [address] [place] [address] Care Team Providers Care [facility] Director Name Role Phone Diaz Dalton MD Primary Care Provider + Allergies Active AllergyReactionsCriticalityNoted DateComments Sulfamethoxazole-XqynfiytqseeEpzwdcx33/10/2012 Medications MedicationSigDispense QuantityRefillsLast FilledStart DateEnd DateStatus hyoscyamine (ANASPAZ;LEVSIN) [address] 125 mcg under the tongue every 4 hours as needed for CrampingActive clonazePAM (KLONOPIN) 1 MG tablet Take 1 mg by mouth 3 times daily as needed for Anxiety.Active HYDROcodone-acetaminophen (NORCO) 5-325 MG per tablet Take 1 tablet by mouth every 6 hours as needed for Pain.Active insulin glargine (LANTUS SOLOSTAR) 100 UNIT/ML injection pen Inject into the skinActive PROAIR HFA 108 (90 Base) MCG/ACT inhaler INHALE 2 PUFFS INTO THE LUNGS EVERY 6 HOURS NEEDED FOR WHEEZING OR SHORTNESS OF BREATH 1 each 10/11/2021ctive Active Problems ProblemNoted DateDiagnosed DateAcute kidney injury (DREW) with acute tubular necrosis (ATN)09/30/2021High anion gap metabolic osstqbms68/27/2022neumonia due to infectious /26/2022Mental developmental delay2DKA, type 1, not at goal09/27/2021 Family History Medical HistoryRelationNameCommentsNo Known ProblemsMotherRelationNameStatus CommentsMotherAlive Social History Tobacco UseTypesPacks/DayYears UsedDateSmoking Tobacco: NeverSmokeless Tobacco: NeverAlcohol UseStandard Drinks/WeekCommentsNever0 (1 standard drink = 0.6 oz pure alcohol)CommentsUnknownSex and Gender InformationValueDate Recorded Sex Assigned at BirthNot on fileLegal NzcRvsssh72/24/2022 2:40 AM ESTGender IdentityNot on fileSexual OrientationNot on file Last Filed Vital Signs Vital SignReadingTime TakenCommentsBlood Addzzkpr579/80010/03/2021 11:29 AM EST Pgzrt547610/03/2021 11:29 AM OBUFwrqlljiokt88.4 ??C (97.5 ??F)10/03/2021 11:29 AM ESTRespiratory Pwsi116710/03/2021 11:29 AM ESTOxygen Hhqovuksvg27%10/03/2021 11:29 AM ESTInhaled Oxygen Concentration--Enyxvg990.2 kg (223 lb 3.2 oz)09/29/2021 6:00 AM EMNNprxzw865.4 cm (5')09/28/2021 9:30 AM ESTBody Mass Index43.59 09/28/2021 9:30 AM EST Plan of Treatment Not on file Insurance Advance Directives * Full Code (Latest Code Status on File) Date ActivatedDate InactivatedComments09/28/2021 9:46 AM10/03/2021 4:19 PM Care Teams Team MemberRelationshipSpecialtyStart DateEnd Date Diaz Dalton MD [address] [place] [address] PCP - GeneralFamily Medicine09/28/21
--- OUTSIDE RECORDS SUMMARY | 2025-07-21 19:28 | XMS_ITS | CCD ---
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 Name Role Phone DIAZ DALTON Attending Unavailabl e NADERER, DIAZ MORALES Primary Care Unavailchad Dalton MD, Diaz Morales Primary Care Provider YAAKOV BERRIOS Referring Unavailable SHA, DIAZ MORALES Primary Care Unavailabl e GUIDO SALAS Attending Unavailable BRYAN, LEONEL Admitting Unavailable BRYAN LEONEL Consulting Unavailable AOUAD, GOVIND T Consulting Unavailable LOPEZ, JUSTIN Consulting Unavailable [...] NADERER, DR DIAZ Phipps Primary Care Unavailable WILLIEBCORA, [...] DR VALENCIA Consulting Unavailable NADERER, DR DIAZ Phpips Primary Care Unavailable DEMAR ., DR VALENCIA Admitting Unavailable DEMAR ., DR VALENCIA Attending Unavailable DEMAR ., DR VALENCIA Consulting Unavailable SHA, DR DIAZ Phipps Primary Care Unavailable SHA, DR DIAZ Phipps Primary Care Unavailable MYRNA, DR CHERI Cespedes Attending Unavailable MYRNA, DR CHERI Cespedes Consulting Unavailable MYRNA, DR CHERI Cespedes Admitting Unavailable Sha WERNER, Diaz Primary Care Provider Sha WERNER, Diaz Primary Care Provider Paul, Gary Carlos Admitting Unavail able Paul, Gary Carlos Attending Unavail able NADERER, DIAZ A Primary Care Unavailable Paul, Gary Carlos Attending Unavail able Paul, Gary Carlos Admitting Unavail able NADERER, DIAZ A Primary Care Unavailable Paul, Gary Carlos Attending Unavail able NADERER, DIAZ A Primary Care Unavailable Pual, Gary Carlos Admitting Unavail able Paul, Gary Carlos Attending Unavail able Paul, Gary Carlos Admitting Unavail able NADERER, DIAZ A Primary Care Unavailable Brush, Gary Carlos Attending Unavail able Paul, Gary Carlos Admitting Unavail able DEREKERER, DIAZ A Primary Care Unavailable Sha WERNER, Diaz Primary Care Provider Sha WERNER, Diaz Primary Care Provider [phone] Sha WERNER, Diaz Primary Care Provider [phone] Sha WERNER, Diaz Primary Care Provider Sha WERNER, Diaz Primary Care Provider [phone] Sha WERNER, Diaz Primary Care Provider [phone] Sha WENRER, Diaz Primary Care Provider [phone] Randall Soria MD Attending Provider DIAZ DALTON Referring Unavailable SHA, DIAZ Primary Care Unavailable HARINDER ESTRELLA Admitting Unavailable HARINDER ESTRELLA Attending Unavailable SHA, DIAZ Primary Care Unavailable LINDSAY ARRIETA Attending Unavailable DIAZ DALTON Referring Unavailable SHA, DIAZ Primary Care Unavailable KAYLAN ROBERTO Attending Unavailable DIAZ DALTON Referring Unavailable SHA, DIAZ Primary Care Unavailable PACHECO MADRIGAL Attending Unavailable DIAZ DALTON Referring Unavailable SHA, DIAZ Primary Care Unavailable LINDSAY ARRIETA Attending Unavailable DIAZ DALTON Referring Unavailable NADERER, DIAZ Primary Care Unavailable PACHECO MADRIGAL Attending Unavailable DIAZ DALTON Referring Unavailable NADERECoy, DIAZ Primary Care Unavailable Sha WERNER, Diaz Primary Care Provider Sha WERNER, Diaz Attending Provider CARMEN BOWAMN Attending Unavailable SHA, DIAZ Attending Unavailable SHA, DIAZ Attending Unavailable SHA, DIAZ Attending Unavailable SHAMA MEDINA Attending Unavailable SHAMA MEDINA Referring Unavailable STEPJR. KRYSTYNA, HARINDER Lynn Attending Unavaila ble DEMARFELIZ BRYANT Attending Unavailable SHAKILA VALADEZ Attending Unavailable STEPKRYSTYNA, JR., HARINDER Lynn Referring Unavaila UBALDO Sen Attending Unavailable STEPKRYSTYNA, , HARINDER Lynn Referring Unavaila ble BRFABIOLA TADEO Attending Unavailable STEPKRYSTYNA, JR., HARINDER Lynn Referring Unavaila ble FABIOLA KELLY Attending Unavailable MANUEL, JR., HARINDER Lynn Referring Unavaila ble FELIZ BENZ Attending Unavailable STEPJR. KRYSTYNA, HARINDER Lynn Attending Unavaila BARRY Underwood Attending Unavailable BARRY SNOWDEN Attending Unavailable DIAZ DALTON Attending Unavailable FELIZ BENZ Attending Unavailable FELIZ BENZ Attending Unavailable SHAMA MEDINA Attending Unavailable Diaz Dalton Primary Care Unavailable Randall Soria Attending Unavailable Randall Soria Admitting Unavailable Randall Soria Admitting Unavailable Diaz Dalton Primary Care Unavailable Randall Soria Attending Unavailable Sha, Diaz Primary Care Unavailable Randall Soria Attending Unavailable Randall Soria Admitting Unavailable HAIR SEE Attending Unavailable DIAZ DALTON Referring Unavailable NADERECoy, DIAZ Primary Care Unavailable SHA, DIAZ Primary Care Unavailable SANJIV TAYLOR Attending Unavailable JACK HOLLAND Admitting Unavailable MurielOSTRHAIR Phipps Referring Unavailable DEREKERER, DIAZ Primary Care Unavailable SMITHA GERMAIN Referring Unavailable NADERECoy, DIAZ Primary Care Unavailable DEREKERECoy, DIAZ Referring Unavailable NADERECoy, DIAZ Primary Care Unavailable ALIYA SOLORZANO Admitting Unavailable ALIYA SOLORZANO Attending Unavailable ALIYA SOLORZANO Referring Unavailable NADERER, DIAZ Primary Care Unavailable KATELYN RECIO Attending Unavailable DEREKJOHNCoy DIAZ Referring Unavailable NADERER, DIAZ Primary Care Unavailable NADERER, DIAZ Primary Care Unavailable HUMBERTO CARRASCO Attending Unavailable TAISHAR, DIAZ Referring Unavailable NADERER, DIAZ Primary Care Unavailable KATELYN RECIO Attending Unavailable TAISHAR, DIAZ Referring Unavailable NADERER, DIAZ Primary Care Unavailable LINDSAY ARRIETA Attending Unavailable LINDSAY ARRIETA Referring Unavailable NADERER, DIAZ Primary Care Unavailable CHASIDY LAI Attending Unavailable DEREKERER, DIAZ Referring Unavailable NADERER, IDAZ Primary Care Unavailable Allergies Allergy ClassificationReported Allergen(s)Allergy TypeDate of OnsetReaction(s) Facility (20 sources)Sulfamethoxazole / Trimethoprim; Translations: [SULFAMETHOXAZOLE-TRIMETHOPRIM]Drug Gqjgcih04-04-9367Dulfehd, Warren, Other (See Comments)[facility] (1 source)Amoxicillin / ClavulanateDrug AllergyThe [facility] (1 source)levoFLOXacinDrug Bxwyzpt52-13-2114Lmh [facility] (2 sources)Sulfamethoxazole / Trimethoprim; Translations: [Bactrim]Drug Allergy 01-93-2677[facility] (6 sources)Clindamycin; Translations: [clindamycin]Drug Uecuoya01-83-8504kxyhUniversity Hospitals [facility] (6 sources)Sulfamethoxazole; Translations: [sulfamethoxazole]Drug Allergy 17-38-4951AhptEgwrinihhK[facility] (6 sources)Trimethoprim; Translations: [trimethoprim]Drug Xqmsraq96-59-2585SuqdC[facility] Medications Current Medications MedicationDrug Class(es)DatesSig (Normalized)Sig (Original)acetaminophen 325 mg oral tablet (2 sources)Start: 90-70-7582swjm 1 tablet by mouth every four hours as ivopmz151 mg, oral, Every 4 hours PRN, Temperature greater than 38.3 C, Starting on Mon12/20/23 at 2211, [Warning: Total Acetaminophen not to exceed more than 4 grams (4000 mg) in 24 hours]Start: 30-80-7892wtlvfifszbojn (TYLENOL) 160 MG/5ML solution 650 mgacetaminophen 325 mg / HYDROcodone bitartrate 5 mg oral tablet (5 sources)Opioid AgonistStart: 06-14-2024 End: 54-43-0747ypfb 1 tablet by mouth every six hours for painHYDROcodone- acetaminophen ([place]) 5-325 MG tablet Indications: Post-operative pain Take 1 tablet bymouth every 6 (six) hours if needed for severe pain for up to 3 days 12 tablet 06/14/2024 06/17/2024 ActiveStart: 70-38-4424sxdh 1 tablet by mouth four times daily as needed for painHYDROcodone-acetaminophen ([place]) 5-325 MG tablet Indications: Cavitary lesion of [...] 0.83 mg/ml inhalation solution (20 sources)beta2-Adrenergic AgonistStart: 32-05-9803idoa 3 mL by inhalation four times daily as needed for wheezingalbuterol (PROVENTIL,VENTOLIN) 2.5 mg /3 mL (0.083 %) nebulizer solution Indications: Moderate persistent asthma without complication Inhale 3 mL (2.5 mg total) by nebulization 4 (four) times a day as needed for wheezing. 75 mL 12 05/07/2025 ActiveStart: 04-22-0675xuoq 1 puff(s) by inhalation every four to six hours as needed for wheezingAlbuterol Sulfate 90 mcg/actuation HFA aerosol inhaler Active 2 PUFF INHALATION EVERY 4-6 HOURS as n eeded for shortness of breath or wheezing May 01, 2025 12:00am Complies with drug therapyStart: 29-68-9320wmlc 2 puff(s) by mouth every four hours as needed for wheezingalbuterol HFA 90 mcg/act inhaler Indications: SOB (shortness of breath) INHALE 2 PUFFS BY MOUTH EVERY 4 HOURS NEEDED FOR WHEEZING 8.5 g 11 02/25/2025 ActiveStart: 89-04-5055vtnm 2 puff(s) by inhalation every six hours as needed for wheezingalbuterol (PROVENTIL HFA;VENTOLIN HFA) 90 mcg/actuation inhaler Indications: Hypoxia Inhale 2 puffsevery 6 (six) hours as needed for wheezing or shortness of breath. 18 g 12/22/2023 ActiveStart: 08-10-2023 End: 20-52-2898gtvu 2 puff(s) by mouth every four hours as needed for wheezing albuterol HFA 90 mcg/act inhaler Indications: SOB (shortness of breath) INHALE 2 PUFFS BY MOUTH EVERY 4 HOURS NEEDED FOR WHEEZING 8.5 g 10 04/16/2024 Active Start: 10-03-2021 End: 48-35-0697zqpk 2 puff(s) by inhalation every six hours as needed for wheezingalbuterol sulfate HFA 108 (90 Base) MCG/ACT inhaler Inhale 2 puffs into the lungs every 6 hours as needed for Wheezing or Shortness of Breath 1 each 0 10/03/2021 11/02/2021 ActiveStart: 80-42-3414cjhihxwxa (PROVENTIL) nebulizer solution 2.5 mgalbuterol 0.833 mg/ml / ipratropium bromide 0.167 mg/ml inhalation solution (1 source)Anticholinergic, beta2-Adrenergic AgonistStart: 79-58-3198xfel 3 mL by inhalation every six hours as needed for wheezing3 mL, nebulization, Every 6 hours PRN, wheezing, Starting on Mon12/20/23 at 2219, Implement INPATIENT/ED Bronchodilator Clinical Practice Guidelines? Yes, Document: \phsi.[email or web address].org\epic\EPIC_Reference\Orders\Respiratory Care Guidelines\CPG Bronchodilator 2020.pdfaluminum hydroxide 40 mg/ml / magnesium hydroxide 40 mg/ml / simethicone 4 mg/ml oral suspension (1 source)Start: 34-26-7997aepi 30 mL by mouth four times daily at bedtime as zrgpqo77 mL, oral, 4 times daily after meals and at bedtime as needed, dyspepsia, Starting on Mon12/20/23at 2212, Look-alike/sound-alike medication - verify indication for use. Shake well., Indications: dyspepsiaatorvastatin 40 mg oral tablet (20 sources)HMG-CoA Reductase InhibitorStart: 06-11-2018 End: 68-24-3214mhuk 1 tablet by mouth once daily in the morningAtorvastatin 40 mg tablet Active 40 MG PO Every morning June 11, 2018 12:00am Complies with drug therapyBlack Cohosh Root Extract (20 sources)Start: 75-62-4676naty 1 capsule by mouth once dailyStart: 06-04-2025 take 1 capsule by mouth once dailyBlack Cohosh Root Extract 40 mg capsule Active 40 MG PO Daily June 04, 2025 12:00am Complies with drug therapyStart: 13-55-4623kvmj 1 capsule by mouth once dailyBlack Cohosh (Black Cohosh Hot Flash Relief) 40 MG capsule Indications: Hot flashes due to menopause Take 1 each by mouth Daily 30 capsule 11 11/02/2023 ActiveBlood Glucose Monitoring Suppl (True Metrix Meter) w/Device kit (20 sources)Start: 01-73-9400Ifffu Glucose Monitoring Suppl (True Metrix Meter) w/Device kit Indications: Type 2 diabetes mellitus with hyperglycemia, with long-term current use of insulin (HCC) Test daily 1 kit 02/25/2025 ActiveBlood- Glucose Sensor device (3 sources)Start: 24-66-6224Wgmpz-Glucose Sensor device Active 0 .ROUTE June 04, 2025 12:00am As directed, freestyle crystal 3 rvrafgu05 hr buPROPion hydrochloride 300 mg extended release oral tablet (20 sources)AminoketoneStart: 78-36-6377hyud 1 tablet by mouth once daily as needed for depressionBupropion Hcl 300 mg tablet extended release 24 hr Active 300 MG PO Daily as needed for depression May 01, 2025 12:00am Complies with drug therapyStart: 90-01-6585nwdr 1 tablet by mouth every twenty-four hours in the morningbuPROPion XL (Wellbutrin XL) 300 MG 24 hr tablet Take 300 mg by mouth in the morning. 0 07/18/2023 ActivecefTRIAXone 1000 mg injection (2 sources)Cephalosporin AntibacterialStart: 10-06-6057obyp 1000 mg intravenously every twenty-four hours1,000 mg, [...] oral capsule (2 sources)Cephalosporin AntibacterialStart: 12-22-2023 End: 86-77-9713lriz 1 capsule by mouth in the morning, then take 1 capsule by mouth at bedtimeCEPHalexin (KEFLEX) 500 mg capsule Take 1 capsule (500 mg total) by mouth in the morning and 1 capsule (500 mg total) before bedtime. Do all this for 4 days. 8 capsule 12/22/2023 12/26/2023 Activecholecalciferol 0.05 mg oral tablet (20 sources)Vitamin DStart: 46-14-7257pmds 1 tablet by mouth once daily in the morningStart: 02-03-2025 End: 80-57-4649hcpc 1 tablet by mouth once daily in the morningCholecalciferol (Vitamin D3) 50 mcg (2,000 unit) tablet Discontinued 50 MCG PO Every morning 2024 12:00am June 04, 2025 11:51amStart: 35-25-2217ehzx 400 [IU] by mouth once swnme507 Units, oral, Daily, First dose on [place] 12/21/23 at 0900 Start: 10-02-2023 End: 98-10-4628wtjb 2 tablets by mouth once dailycholecalciferol (Vitamin D-3) 50 MCG (2000 UT) tablet Indications: Vitamin D deficiency Take 2 tablets (100 mcg) by mouth Daily 60 tablet 5 08/14/2024 Activetake 1 tablet by mouth in the morningcholecalciferol, vitamin D3, 400 units tablet Take 1 tablet (400 Units total) by mouth in the morning. Activeciprofloxacin 500 mg oral tablet (2 sources)Quinolone AntimicrobialStart: 07-04-2024 End: 81-52-1966kyfu 1 tablet by mouth in the morningciprofloxacin (Cipro) 500 MG tablet Indications: Urinary Tract Infection Take 1 tablet (500 mg) by mouth in the morning and 1 tablet (500 mg) before bedtime. Do all this for 7 days. 14 tablet 07/04/2024 07/11/2024 Activecitalopram 40 mg oral tablet (20 sources)Serotonin Reuptake InhibitorStart: 12-31-9658fqsy 1 tablet by mouth once daily in the morningCitalopram 40 mg tablet Active 40 MG PO Every morning May 01, 2025 12:00am Complies with drug therapyStart: 03-15-2024 End: 94-20-4551jrcucmsdpq (CeleXA) 20 mg tablet 08/13/2024 ActiveclonazePAM 1 mg oral tablet (20 sources)BenzodiazepineStart: 28-50-8896cquz 1 tablet by mouth at bedtime as needed for anxietytake 1 tablet by mouth three times daily as needed for anxiety clonazePAM (KLONOPIN) 1 MG tablet Take 1 mg by mouth 3 times daily as needed for Anxiety. 0 ActiveContinuous Glucose Carton Inspector (FreeStyle Crystal 2 [place]) device (7 sources)Start: 10-25-2024 End: 80-66-5404Myvhnenkoj Glucose Carton Inspector (FreeStyle Crystal 2 [place]) device Indications: Type 2 diabetes mellituswith microalbuminuria, with long-term current use of insulin ([facility]) Test once daily 1 each 10/25/2024 11/07/2024 DiscontinuedStart: 68-00-3033Wooxljxpdh Glucose Carton Inspector (FreeStyle Crystal 2 [place]) device Indications: Type 2 diabetes mellituswith microalbuminuria, with long-term current use of insulin ([facility]) Test once daily 1 each 10/25/2024 ActiveContinuous Glucose Carton Inspector (FreeStyle Crystal 3 [place]) device (20 sources)Start: 68-77-8014Ylcklcgfvr Glucose Carton Inspector (FreeStyle Crystal 3 [place]) device Indications: Type 2 diabetes mellituswith hyperglycemia, with long-term current use of insulin ([facility]) 1 Application continuously 1 each ActiveStart: 11-07-2024 End: 57-92-7684Jjhecxbeyf Glucose Carton Inspector (FreeStyle Crystal 3 [place]) device Indications: Type 2 diabetes mellituswith hyperglycemia, with long-term current use of insulin (CMS/HCC) 1 Application continuously 1 each 11/07/2024 11/07/2024 DiscontinuedStart: 96-61-7980Opmgdrzjgq Glucose Carton Inspector (FreeStyle Crystal 3 [place]) device Indications: Type 2 diabetes mellituswith hyperglycemia, with long-term current use of insulin (CMS/HCC) 1 Application continuously 1 each 11/07/2024 ActiveContinuous Glucose Sensor (FreeStyle Crystal 14 Day Sensor) misc (3 sources)Start: 39-68-4403Zitraljfrt Glucose Sensor (FreeStyle Crystal 14 Day Sensor) misc Indications: Type 2 diabetes mellitus with microalbuminuria, with long-term current use of insulin (CMS/HCC) apply 1 SENSOR to back OF UPPER ARM REMOVE AND REPLACE every 14 d... (REFER TO PRESCRIPTION NOTES). 2 each 09/23/2024 ActiveStart: 09-19-2024 End: 63-86-9888Zzskqwyakj Glucose Sensor (FreeStyle Crystal 14 Day Sensor) misc Indications: Type 2 diabetes mellitus with microalbuminuria, with long-term current use of insulin (CMS/[facility]) apply 1 SENSOR to back OF UPPER ARM REMOVE AND REPLACE every 14 d... (REFER TO PRESCRIPTION NOTES). 2 each 09/19/2024 09/23/2024 Discontinued (Reorder)Start: 20-22-2448Ycumdbtwqs Glucose Sensor (FreeStyle Crystal 14 Day Sensor) misc Indications: Type 2 diabetes mellitus with microalbuminuria, with long-term current use of insulin (CMS/[facility]) apply 1 SENSOR to back OF UPPER ARM REMOVE AND REPLACE every 14 d... (REFER TO PRESCRIPTION NOTES). 2 each 09/19/2024 ActiveContinuous Glucose Sensor (FreeStyle Crystal 3 Sensor) misc (20 sources)Start: 29-93-2152Juknnsqkzj Glucose Sensor (FreeStyle Crystal 3 Sensor) misc Indications: Type 2 diabetes mellitus with hyperglycemia, with long-term current use of insulin ([facility]) USE TO MONITOR BLOOD SUGAR DIRECTED. CHANGE SENSOR EVERY 14 DAYS. 1 each 05/04/2025 ActiveStart: 04-09-2025 End: 29-64-0409Fgjimvhotc Glucose Sensor (FreeStyle Crystal 3 Sensor) misc Indications: Type 2 diabetes mellitus with hyperglycemia, with long-term current use of insulin (HCC) 1 Units 1 (one) time per week 1 each 04/09/2025 05/04/2025 DiscontinuedStart: 74-96-3620Tnoxfdhiks Glucose Sensor (FreeStyle Crystal 3 Sensor) misc Indications: Type 2 diabetes mellitus with hyperglycemia, with long-term current use of insulin ([facility]) 1 Units 1 (one) time per week 1 each 04/09/2025 ActiveStart: 71-21-6833Sxfkkgvlsq Glucose Sensor (FreeStyle Crystal 3 Sensor) misc Indications: Type 2 diabetes mellitus with hyperglycemia, with long-term current use of insulin ([facility]) USE TO MONITOR BLOOD SUGAR DIRECTED. CHANGE SENSOR EVERY 14 DAYS. 2 each 11/04/2024 ActiveStart: 11-04-2024 Continuous Glucose Sensor (FreeStyle Crystal 3 Sensor) misc Indications: Type 2 diabetes mellitus with hyperglycemia, with long-term current use of insulin (CMS/[facility]) USE TO MONITOR BLOOD SUGAR DIRECTED. CHANGE SENSOR EVERY 14 DAYS. 2 each 11/04/2024 ActiveStart: 45-25-7786Iqxzqeemiq Glucose Sensor (FreeStyle Crystal 3 Sensor) misc Indications: Type 2 diabetes mellitus with hyperglycemia, with long-term current use of insulin (CMS/HCC) 1 each every 14 (fourteen) days 2 each 10/29/2024 ActiveStart: 17-98-2056Fuhbnsqnhr Glucose Sensor (FreeStyle Crystal 3 Sensor) misc Indications: Type 2 diabetes mellitus with hyperglycemia, with long-term current use of insulin (CMS/[facility]) 1 each every 14 (fourteen) days 2 each 09/25/2024 ActiveStart: 09-23-2024 End: 68-82-2463Gwijlmjmrb Glucose Sensor (FreeStyle Crystal 3 Sensor) misc Indications: Type 2 diabetes mellitus with hyperglycemia, with long-term current use of insulin (CMS/HCC) 1 each every 14 (fourteen) days 2 each 09/23/2024 09/25/2024 Discontinued (Reorder)cyclobenzaprine hydrochloride 10 mg oral tablet (20 sources)Muscle RelaxantStart: 65-07-6920pqru 1 tablet by mouth three times daily as needed for muscle spasmscyclobenzaprine (FLEXERIL) 10 mg tablet Take 1 tablet (10 mg total) by mouth 3 (three) times a day as needed for muscle spasms. 30 tablet 06/29/2024 Activedicyclomine hydrochloride 20 mg oral tablet (20 sources)AnticholinergicStart: 52-90-6375jeka 1 tablet by mouth four times daily as neededdicyclomine (Bentyl) 20 MG tablet Indications: Irritable bowel syndrome with diarrhea TAKE 1 TABLETBY MOUTH FOUR TIMES DAILY NEEDED 60 tablet 10 10/15/2024 ActiveStart: 04-63-2587hfvp 1 tablet by mouth four times daily as neededdicyclomine (Bentyl) 20 MG tablet Indications: Irritable bowel syndrome with diarrhea TAKE 1 (ONE) TABLET BY MOUTH FOUR TIMES DAILY, NEEDED 60 tablet 10 11/17/2023 ActiveStart: 58-92-8715hmus 1 tablet by mouth four times daily as neededdicyclomine (Bentyl) 20 MG tablet Take 20 mg by mouth 4 (four) times a day as needed. 0 01/18/2023 Activetake 1 tablet by mouth every six hours dicyclomine (BENTYL) 20 mg tablet Take 1 tablet (20 mg total) by mouth every 6 (six) hours. Activedulaglutide (Trulicity) 4.5 MG/0.5ML solution pen-injector (3 sources)Start: 18-32-0403jhcauz 4.5 mg by subcutaneous injection every week dulaglutide (Trulicity) 4.5 MG/0.5ML solution pen-injector Indications: Type 2 diabetes mellitus with microalbuminuria, with long-term current use of insulin ([facility]) Inject 4.5 mg under the skin 1 (one) time per week 4 each 5 10/02/2023 Activeempagliflozin 25 mg oral tablet (20 sources)Sodium-Glucose Cotransporter 2 InhibitorStart: 46-80-2166qely 1 tablet by mouth once daily in the morningEmpagliflozin (Jardiance) 25 mg tablet Active 25 MG PO Every morning May 01, 2025 12:00am Complies with drug therapyStart: 11-07-2024 End: 84-10-0460gqxh 1 tablet by mouth once dailyempagliflozin (Jardiance) 25 MG Indications: Type 2 diabetes mellitus with hyperglycemia, with long-term current use of insulin ([facility]) Take 1 tablet (25 mg) by mouth Daily 30 tablet 5 11/07/2024 ActiveStart: 10-07-2024 End: 83-82-8201hckh 1 tablet by mouth in the morningempagliflozin (JARDIANCE) 10 mg tablet tablet Take 1 tablet (10 mg total) by mouth in the morning. 90 tablet 3 10/07/2024 Active0.4 ml enoxaparin sodium 100 mg/ml prefilled syringe (1 source)Low Molecular Weight HeparinStart: 51-88-5457todgbg 40 mg by subcutaneous injection every twelve hours40 mg, subcutaneous, Every 12 hours, First dose (after last reorder) on [facility] 12/21/23 at 0600, Look-alike/sound-alike medication - verify indication for use.fluconazole 150 mg oral tablet (20 sources)Azole AntifungalStart: 25-34-2813tjec 1 tablet by mouth once fluconazole (Diflucan) 150 MG tablet Take 150 mg by mouth 1 (one) time 03/25/2024 ActiveStart: 09-29-2021 End: 63-48-7503khkthstkwyp (DIFLUCAN) tablet 200 mg Bdonodoxgru-Vyhsvzqgo-Ihkppvwt (5 sources)Start: 14-31-5597Zagopbrkpdx-Umeclidin-Vilanter (Trelegy Ellipta) 200-62.5-25 mcg blister with device Active 1 INH INHALATION Every morning May 01, 2025 12:00am Complies with drug therapyStart: 05-01-2025 dmfzcmsdrve-plewezrqz-vdcefvbe (TRELEGY ELLIPTA) 200-62.5-25 mcg blister with device (20 sources)Start: 83-00-8836kaoe 1 puff(s) by inhalation in the morning nmqxtvxkrkh-foftteblz-qkmqirhn (TRELEGY ELLIPTA) 200-62.5-25 mcg blister with device Indications: Moderate persistent asthma without complication Inhale 1 puff in the morning. 60 each 11 03/21/2024 ActiveStart: 02-19-2024 End: 60-13-1307orpv 1 puff(s) by inhalation in the morning wgmcysgoynl-exwyidikz-rnxppfjx (TRELEGY ELLIPTA) 200-62.5-25 mcg blister with device Indications: Moderate persistent asthma without complication Inhale 1 puff in the morning. 60 each 02/19/2024 03/21/2024 Discontinued (Reorder) Start: 44-61-3882ozba 1 puff(s) by inhalation in the morning baupajcxsgo-mevppgsnz-primpaln (TRELEGY ELLIPTA) 200-62.5-25 mcg blister with device Indications: Moderate persistent asthma without complication Inhale 1 puff in the morning. 60 each 02/19/2024 ActiveFREESTYLE CRYSTAL 14 DAY SENSOR kit (20 sources)Start: 84-79-1801RLUQFNJKW CRYSTAL 14 DAY SENSOR kit 08/14/2024 Active Start: 63-92-2317FPSJYMCGI CRYSTAL 14 DAY SENSOR kit APPLY 1 SENSOR TO BACK OF UPPER ARM. REMOVE AND REPLACE EVERY 14 DAYS 08/14/2024 Activefurosemide 40 mg oral tablet (20 sources)Loop DiureticStart: 20-58-9602cmit 1 tablet by mouth once daily in the morningStart: 08-06-2024 End: 88-51-2759dtot 1 tablet by mouth once dailyfurosemide (Lasix) 40 MG tablet Indications: Chronic heart failure with preserved ejection fraction(HFpEF) (HCC) Take 1 tablet (40 mg) by mouth Daily 30 tablet 5 11/07/2024 ActiveStart: 84-22-8651bzab 1 tablet by mouth once dailyfurosemide (LASIX) 20 mg tablet Indications: Dyspnea on exertion , Pulmonary hypertension (CMS-HCC)Take 1 tablet (20 mg total) by mouth daily. 90 tablet 3 07/18/2024 Active End: 73-18-3177qzxa 1 tablet by mouth once daily as [...] 70 mg/dL after initial treatment, repeat treatment.Start: 33-46-4954qstfzafl (rDNA) injection 1 mg150 ml glucose 50 [...] repeat treatment. VESICANT (RED) Warning: HYPERTONIC solution.Start: 38-61-3944gytp 70 mg intravenously every xjos710 mL/hr, intravenous, Continuous PRN, blood glucose less [...] 70 mg/dL after initial treatment, repeat treatment.Start: 25-34-8862fbpfihw (GLUTOSE) 40 % oral gel 15 gStart: 21-84-2753xgokjqze 5 % solutionStart: 58-36-4943lukdygul 50 % IV yqvvfhfy436 ml glucose 50 mg/ml / sodium chloride 4.5 mg/ml injection (1 source)Start: 06-82-2630makwlhfa 5 % and 0.45 % sodium chloride infusion1 ml heparin sodium, porcine 5000 unt/ml prefilled syringe (1 source)Unfractionated Heparin, Anti-coagulantStart: 92-59-7007nzhgyha (porcine) injection 5,000 Unitshyoscyamine sulfate 0.125 mg oral tablet (1 source)hyoscyamine (ANASPAZ;LEVSIN) [address] 125 mcg under the tongue every 4 hours as needed for Cramping 0 Activeibuprofen 800 mg oral tablet (16 sources)Nonsteroidal Anti-inflammatory DrugStart: 51-41-7076qmgb 1 tablet by mouth every six hours for painibuprofen 800 MG tablet Indications: Pelvic pain in female TAKE 1 TABLET BY MOUTH EVERY 6 HOURS IF NEEDED FOR MILD PAIN FOR UP TO 30 DOSES 30 tablet 3 04/28/2025 Active End: 25-67-4580gtbt 1 tablet by mouth every six hours as needed for pain ibuprofen (ADVIL;MOTRIN) 600 MG tablet Take 600 mg by mouth every 6 hours as needed for Pain 0 10/02/2021 Discontinued (Stop Taking at Discharge)3 ml insulin aspart, human 100 unt/ml pen injector (20 sources)Insulin AnalogStart: 01-17-3296ubdcbv 30-40 [IU] by subcutaneous injection once daily before mealtimeStart: 05-01-2025 End: 81-55-7464bteeja 1 dose by subcutaneous injection once before mealtime Insulin Aspart U-100 100 unit/mL (3 mL) insulin pen Discontinued 1 sliding scale dose SUBCUT 3x/Daybefore meals May 01, 2025 12:00am June 04, 2025 11:51amStart: 55-32-1981omkufqd aspart FlexPen (NovoLOG) 100 UNIT/ML pen Indications: Type 2 diabetes mellitus with hyperglycemia, with long-term current use of insulin (HCC) INJECT SUBCUTANEOUSLY THREE TIMES A DAY PER SLIDING SCALE; *30 TO 40 UNITS DAILY* 15 mL 5 12/26/2024 ActiveStart: 08-05-2024 End: 43-01-5862thvsfxt aspart FlexPen (NovoLOG) 100 UNIT/ML pen Indications: Type 2 diabetes mellitus with hyperglycemia, with long-term current use of insulin ([facility]/HCC) INJECT SUBCUTANEOUSLY THREE TIMES A DAY PER SLIDING SCALE; *30 TO 40 UNITS DAILY* 15 mL 5 08/06/2024 ActiveStart: 08-10-2023 End: 92-62-0480xoojxql aspart FlexPen (NovoLOG) 100 UNIT/ML pen Indications: [...] pen injector (3 sources)Insulin AnalogStart: 09-07-2023 End: 18-24-6712eshhvzr detemir (Levemir FlexPen) 100 UNIT/ML pen Indications: Type 2 diabetes mellitus with microalbuminuria, with long-term current use of insulin (CMS/HCC) Inject 15 Units under the skin at bedtime 13.5 mL 3 09/07/2023 09/06/2024 Activeinsulin glargine 100 unt/ml injectable solution (20 sources)Insulin AnalogStart: 06-04-2025 End: 67-25-3057ombixv 20 [IU] by subcutaneous injection twice dailyInsulin Glargine (Lantus U-100 Insulin) 100 unit/mL solution Active 20 UNIT SUBCUT Twice daily June 06, 2025 10:27am Complies with drug therapyStart: 02-10-2025 inject 20 [IU] by subcutaneous injection in the morninginsulin glargine (Semglee) 100 UNIT/ML pen Indications: Type 2 diabetes mellitus with hyperglycemia, with long-term current use of insulin ([facility]) Inject 20 Units under the skin in the morning and 20 Units before bedtime. 15 mL 3 02/10/2025 Active Start: 11-12-2024 End: 37-73-0777hxrspmo glargine (Semglee) 100 UNIT/ML pen Indications: Type 2 diabetes mellitus with hyperglycemia, with long-term current use of insulin (CMS/HCC) Inject 15 Units under the skin in the morning. 3 mL 3 11/12/2024 02/10/2025 Discontinued (Reorder)Start: 65-08-9214aslzvfq glargine (Semglee) 100 UNIT/ML pen Indications: Type 2 diabetes mellitus with hyperglycemia, with long-term current use of insulin (CMS/HCC) Inject 15 Units under the skin in the morning. 3 mL 3 11/05/2024 ActiveStart: 73-24-4808swebluf glargine (Semglee) 100 UNIT/ML pen Indications: Type 2 diabetes mellitus with hyperglycemia, with long-term current use of insulin (CMS/HCC) Inject 15 Units under the skin in the morning. 10/28/2024 ActiveStart: 10-23-2024 End: 13-94-5810dhmssdb glargine (Semglee) 100 UNIT/ML pen Indications: Type 2 diabetes mellitus with hyperglycemia, with long-term current use of insulin (CMS/HCC) Inject 30 Units under the skin at bedtime 9 mL 5 10/23/2024 10/28/2024 Discontinued (Dose adjustment)Start: 22-97-1618qkcblqv glargine (Semglee) 100 UNIT/ML pen Indications: Type 2 diabetes mellitus with hyperglycemia, with long- term current use of insulin (CMS/HCC) Inject 30 Units under the skin at bedtime 9 mL 5 07/24/2024 ActiveStart: 88-22-6311axlhpel glargine (Semglee) 100 UNIT/ML pen Indications: Type 2 diabetes mellitus with hyperglycemia, with long-term current use of insulin (CMS/HCC) Inject 30 Units under the skin at bedtime 9 mL 5 06/07/2024 ActiveStart: 05-29-2024 End: 18-75-7613rszeiqb glargine (Lantus SoloStar) 100 UNIT/ML pen Indications: Type 2 diabetes mellitus with microalbuminuria, with long-term current use of insulin (CMS/HCC) Inject 30 Units under the skin Daily 5 each 5 06/06/2024 06/07/2024 DiscontinuedStart: 09-73-1665euvgzg 15 [IU] by subcutaneous injection in the morninginsulin glargine (Lantus SoloStar) 100 UNIT/ML pen Indications: Type 2 diabetes mellitus with microalbuminuria, with long-term current use of insulin (CMS/HCC) Inject 15 Units under the skin in the morning and 15 Units before bedtime. 5 each 05/29/2024 ActiveStart: 35-50-5705zncuyg 15 [IU] by subcutaneous injection in the morninginsulin glargine (Lantus SoloStar) 100 UNIT/ML pen Indications: Type 2 diabetes mellitus with microalbuminuria, with long-term current use of insulin (CMS/[facility]) Inject 15 Units under the skin in the morning and 15 Units before bedtime. 5 each 05/29/2024 ActiveStart: 04-05-2024 End: 14-35-8128xuquxd 15 [IU] by subcutaneous injection in the [...] pens stable 28 days at room temperature.Start: 11-58-4275ubnhegm glargine (LANTUS) injection vial 20 UnitsStart: 38-57-0309wrgayuq glargine (LANTUS) injection vial 10 UnitsStart: 04-16-2018 End: 63-34-5910gsfcfq 40 [IU] by subcutaneous injection twice dailyInsulin [...] 100 unt/ml pen injector (6 sources)Insulin AnalogStart: 39-40-1333colozb 400 mg by subcutaneous injection three times [...] or immediately after a meal.Start: 12-20-2023 End: 35-06-8428Tjpjnecc on Mon12/20/23 at 2234, For 1 dose, Emerson Dooley: cabinet override Look-alike/sound-alike medication - verify indication for use. Prime with 2 units of insulin prior to administration. Prandial/supplemental Insulin. Pre-filled pens stable 28 days at room temperature. Insulin lispro should be administered within 15 minutes before or immediately after a meal. Start: 27-12-0324jljjhl 400 mg by subcutaneous injection once daily, [...] or immediately after a meal.Start: 09-29-2021 End: 57-53-7106nyybrdx lispro (HUMALOG) injection vial 0-18 Units H-Egbncmuewpha-Czohz-B12-B6 (Metanx) 3-90.314-2-35 MG capsule (9 sources)Start: 10-09-2024 End: 25-83-5877lzjl 1 capsule by mouth in the ymqlmleL-Ysutxcajqvdw-Hwtln-B12-B6 (Metanx) 3-90.314-2-35 MG capsule Indications: Diabetic polyneuropathy a ssociated with type 2 diabetes mellitus (CMS/HCC) , Neuritis Take 3 mg by mouth in the morning and 3 mg before bedtime. 180 capsule 3 10/09/2024 01/07/2025 ActivelamoTRIgine 200 mg oral tablet (20 sources)Mood Stabilizer, Anti-epileptic AgentStart: 88-51-7912nqok 200 mg by mouth once daily for gyjbuyuanr516 mg, oral, Daily, First dose on Joaquina 12/21/23 at 0900, Look-alike/sound-alike medication - verify indication for use., Indications: depression associated with bipolar disorderStart: 06-11-2018 End: 17-13-8631vfjl 1 tablet by mouth once daily at bedtimelanolin 1000 mg/ml topical cream (20 sources)Start: 41-29-0634zbgrxod (Lansinoh) cream Indications: Nipple pain Apply topically if needed for dry skin 7 g 09/27/2023 Activelidocaine 0.05 mg/mg medicated patch (4 sources)Antiarrhythmic, Amide Local AnestheticStart: 70-85-0386kbeju 1 dose transdermal route every twelve hours in the morninglidocaine (LIDODERM) 5 % Place 1 patch on the skin in the morning. Remove & Discard patch within 12 hours or as directed by . 30 patch 07/24/2024 Activelisinopril 2.5 mg oral tablet (20 sources)Angiotensin Converting Enzyme InhibitorStart: 07-13-2023 End: 68-35-0173hfzf 1 tablet by mouth once daily in the morninglisinopriL (PRINIVIL,ZESTRIL) 2.5 mg tablet take 1 tablet by mouth every morning 30 tablet 2 04/17/2024 ActiveStart: 06-11-2018 End: 79-17-8986cbed 1 tablet by mouth once daily in the morningLisinopril 5 mg tablet Discontinued 5 MG PO Every morning June 11, 2018 12:00am May 01, 2025 10:36amloperamide hydrochloride 2 mg oral capsule (1 source)Opioid AgonistStart: 93-20-5441fwkvimspri (IMODIUM) capsule 2 mg LORazepam 1 mg oral tablet (20 sources)BenzodiazepineStart: 07-08-2024 End: 97-59-7028QIYqjejgh (ATIVAN) 1 mg tablet Take 1 tablet (1 mg total) by mouth as needed in the morning and 1 tablet (1 mg total) as needed at noon and 1 tablet (1 mg total) as needed in the evening. 07/10/2024 ActiveStart: 04-19-2024 End: 26-15-5336vcwz 1 tablet by mouth three times daily as needed for anxiety LORazepam (Ativan) 1 MG tablet Indications: Anxiety state (CMS/HCC) TAKE 1 TABLET BY MOUTH 3 TIMES DAILY NEEDED FOR ANXIETY 90 tablet 05/16/2024 Active Start: 74-07-2719nuvg 1 tablet by mouth three times daily as neededLORazepam (Ativan) 1 MG tablet Indications: Anxiety state (CMS/HCC) TAKE 1 TABLET BY MOUTH 3 TIMES DAILY NEEDED 90 tablet 1 09/20/2023 Kgnsne35 ml magnesium sulfate 40 mg/ml injection (3 [...] result continue the replacement orders as needed.Start: 93-20-5254yqzjpmwpy sulfate 1000 mg in dextrose 5% 100 mL IVPBmetoprolol tartrate 50 mg oral tablet (20 sources)beta-Adrenergic BlockerStart: 19-31-1163uaqv 1 tablet by mouth once dailyMetoprolol Tartrate 50 mg tablet Active 50 MG PO Daily June 04, 2025 12:00am Complies with drugtherapyStart: 15-84-1779lngdnwgsvm tartrate (Lopressor) 50 MG tablet 07/31/2023 ActiveMisc. Devices misc (2 sources)Start: 85-85-8844Ntmk. Devices misc Indications: Pre-op examination Dispense: Front Wheeled walker use 90 days. Ht: 5'1 Weight: 206 1 Units 06/03/2025 ActiveMOUNJARO 2.5 mg/0.5 mL pen injector (20 sources)Start: 10-07-2024 End: 53-59-9903qvyczg 5 mg by subcutaneous injection every weekMOUNJARO 2.5 mg/0.5 mL pen injector Indications: Type 2 diabetes mellitus with hyperglycemia, with long-term current use of insulin ([facility]) Inject 5 mg under the skin once a week for 12 doses. 0.5 mL 3 10/07/2024 12/24/2024 Active End: 96-76-1928krkenb 2.5 mg by subcutaneous injection every weekMOUNJARO [...] mg oral tablet (20 sources)Nonsteroidal Anti-inflammatory DrugStart: 09-05-2023 End: 48-17-5016kvtiqatiyv (RELAFEN) 500 mg tablet Take 1 tablet (500 mg total) by mouth as needed in the morning and 1 tablet (500 mg total) as needed in the evening. 08/15/2024 Active End: 84-96-0600spfn 1 tablet by mouth twice dailynabumetone (RELAFEN) 500 MG tablet Take 500 mg by mouth 2 times daily 0 10/02/2021 Discontinued (Stop Taking at Discharge)naproxen 500 mg oral tablet (20 sources)Nonsteroidal Anti-inflammatory DrugStart: 87-02-6229hsmz 1 tablet by mouth in the morning, then take 1 tablet by mouth at mealtimenaproxen (NAPROSYN) 500 mg tablet Take 1 tablet (500 mg total) by mouth in the morning and 1 tablet(500 mg total) in the evening. Take with meals. 30 tablet 06/29/2024 Active End: 52-77-4762fbuj 1 tablet by mouth twice daily at mealtimenaproxen (NAPROSYN) 500 MG tablet Take 500 mg by mouth 2 times daily (with meals) 0 10/02/2021 Discontinued (Stop Taking at Discharge)ofloxacin 3 mg/ml ophthalmic solution (20 sources)Quinolone AntimicrobialStart: 32-84-6075vdpc 0.3 drop(s) into the eye(s) four times dailyStart: 75-73-1910obeqazdfz (Ocuflox) 0.3 % ophthalmic solution INSTILL 1 DROP INTO AFFECTED EYE X4/DAY DIRECTED START 3DAYS PRIOR TO SX,THEN IMMEDIATELY FOLLOWING SX EVERY HOUR W/A,THEN X4/DAY NEXT DAY TIL APPT *04/14* 03/06/2025 Activeondansetron 4 mg disintegrating oral tablet (20 sources)Serotonin-3 Receptor AntagonistStart: 44-28-9858mjkq 1 tablet by mouth every six hours as needed for nausea and nauseaondansetron (Zofran) 4 MG tablet Indications: Nausea TAKE 1 TABLET BY MOUTH EVERY 6 HOURS NEEDEDFOR NAUSEA OR VOMITING 30 tablet 3 04/28/2025 ActiveStart: 49-67-2575lbvv 1 tablet by mouth every eight hours as needed for nauseaondansetron ODT (ZOFRAN ODT) 4 mg disintegrating tablet Dissolve 1 tablet (4 mg total) on tongue every 8 (eight) hours as needed for nausea for up to 10 doses. 10 tablet 10/27/2024 ActiveStart: 65-54-9923qgrg 1 tablet by mouth every six hours as needed for nausea and vomitingStart: 03-19-2024 End: 42-93-3451opaf 1 tablet by mouth every six hours as needed for nausea and vomiting and nausea and nauseaondansetron ODT (Zofran-ODT) 4 MG disintegrating tablet Indications: Nausea Take 1 tablet (4 mg) bymouth every 6 (six) hours if needed for nausea or vomiting 30 tablet 2 03/19/2024 04/24/2024 ExpiredStart: 93-12-9992svvq 4 mg intravenously every six hours as needed for nausea and vomiting4 mg, intravenous, Every 6 hours PRN, nausea, vomiting, Starting on Mon12/20/23 at 2211, Administerover 2-5 minutes.Start: 76-17-8693cvlzmzcendf (ZOFRAN) injection 4 mg24 hr oxybutynin chloride 15 mg extended release oral tablet (20 sources)Cholinergic Muscarinic AntagonistStart: 08-51-4137qkcr 1 tablet by mouth once dailyoxybutynin XL (Ditropan-XL) 15 MG 24 hr tablet Take 15 mg by mouth Daily 06/19/2023 ActiveStart: 06-19-2023 End: 89-31-1409stdw 1 tablet by mouth every twenty-four hours in the morning oxybutynin XL (Ditropan-XL) 15 MG 24 hr tablet Take 15 mg by mouth in the morning. 06/19/2023 Activepantoprazole 40 mg delayed release oral tablet (20 sources)Proton Pump InhibitorStart: 06-11-2018 End: 82-30-0975lnyk 1 tablet by mouth once daily in the morningPantoprazole (Protonix) 40 mg Tablet,Delayed Release (Dr/Ec) Active 40 MG PO Every morning June 11, 2018 12:00am Complies with drug therapypioglitazone 45 mg oral tablet (20 sources)Peroxisome Proliferator Receptor alpha Agonist, Peroxisome Proliferator Receptor gamma Agonist, ThiazolidinedioneStart: 57-98-938102 mg, oral, Daily, First dose on Joaquina 12/21/23 at 0900, Hold dose and notify prescriber if blood glucose is less than 100 mg/dL or patient status has changed to NPO. Look-alike/sound-alike medication - verify indication for use.Start: 06-19-2023 End: 95-83-8648zzqw 1 tablet by mouth once daily in the morningpolyethylene glycol 3350 69478 mg powder for oral solution (1 source)Osmotic LaxativeStart: 30-16-5537cakokwalaqay glycol (GLYCOLAX) packet 17 gPotassium Chloride (3 sources)Start: 10-54-0251ovpfaovvc chloride (K-TAB,KLOR-CON) CR tablet 30-50 mEqStart: 27-75-9192yyrmtiyun chloride (KLOR-CON M) extended release tablet 40 mEqStart: 09-28-2021 End: 49-76-4713msdtugkef chloride 10 mEq/100 mL IVPB (Peripheral Line)prazosin 1 mg oral capsule (20 sources)alpha-Adrenergic BlockerStart: 90-60-2655ytuk 2 mg by mouth once daily2 mg, oral, Nightly, First dose on Joaquina 12/21/23 at 2200Start: 06-19-2023 prazosin (Minipress) 2 MG capsule 06/19/2023 ActiveprednisoLONE acetate 10 mg/ml ophthalmic suspension (20 sources)CorticosteroidStart: 30-94-2615zifeozmcNZQZ acetate (Pred-Forte) 1 % ophthalmic suspension INSTILL 1 DROP IN AFFECTED EYE EVERY HOUR WHILE AWAKE AFTER SURGERY THEN NEXT DAY 4 TIMES DAILY UNTIL APPOINTMENT *EFFECTIVE 04/14* 03/06/2025 ActiveSEMGLEE,INSULIN GLARG-YFGN,PEN 100 unit/mL (3 mL) insulin pen (9 sources)Start: 69-66-5157GIJHAEA,INSULIN GLARG-YFGN,PEN 100 unit/mL (3 mL) insulin pen Inject into the appropriate muscle. 06/10/2024 Activesod sulf-pot chloride-mag sulf 1.479-0.188- 0.225 gram tablet (1 source)Start: 90-97-9126ows sulf-pot chloride-mag sulf 1.479-0.188- 0.225 gram tablet Indications: Encounter for screening colonoscopy Please see instructional sheet given by physicians office. 24 tablet 08/21/2024 Jenafo6397 ml sodium chloride 9 mg/ml injection (6 sources)Start: 42-04-4233xgwg 100 mL intravenously every djpi759 mL/hr, intravenous, Continuous, Starting on Mon12/20/23 at 2215Start: 91-06-5050lrwy 20 mL intravenously every hour as hbuzgt08 mL/hr, intravenous, Continuous PRN, to maintain patency of lines, Starting on Mon12/20/23 at 2211Start: 69-17-8926zeqk 25 mL intravenously every hour as optqlr23 mL, intravenous, at 100 mL/hr, Administer over [...] 5 % 250 mL IVPB (1 source)Start: 53-53-1302gmmbwo phosphate 10 mmol in dextrose 5 % 250 mL IVPB SUMAtriptan 25 mg oral tablet (20 sources)Serotonin-1b and Serotonin-1d Receptor AgonistStart: 10-53-4302mgsy 1 tablet by mouth every two hoursStart: 19-75-3303UQAOrkurftw (Imitrex) 25 MG tablet Indications: Migraine without aura and without status migrainosus, not intractable (CMS/HCC) TAKE 1 TABLET BY MOUTH NEEDED 9 tablet 10 03/18/2024 ActiveStart: 96-34-8323GLUNqhvdrai (Imitrex) 25 MG tablet Take 25 mg by mouth if needed. 0 06/19/2023 ActiveTirzepatide (Mounjaro) 2.5 MG/0.5ML solution pen-injector (20 sources)Start: 05-16-2024 End: 36-70-1325firkrr 2.5 mg by subcutaneous injection every weekTirzepatide (Mounjaro) 2.5 MG/0.5ML solution pen-injector Indications: Type 2 diabetes mellitus with hyperglycemia, with long-term current use of insulin (CMS/HCC) INJECT 2.5MG SUBCUTANEOUSLY ONCE WEEKLY 2 mL 5 05/16/2024 08/06/2024 DiscontinuedStart: 53-96-5986cpzroo 2.5 mg by subcutaneous injection every week Tirzepatide (Mounjaro) 2.5 MG/0.5ML solution pen-injector Indications: Type 2 diabetes mellitus with hyperglycemia, with long-term current use of insulin (CMS/HCC) INJECT 2.5MG SUBCUTANEOUSLY ONCE WEEKLY 2 mL 5 05/16/2024 ActiveStart: 01-09-2024 End: 90-56-4349seakpl 2.5 mg by subcutaneous injection every weekTirzepatide (Mounjaro) 2.5 MG/0.5ML solution pen-injector Indications: Type 2 diabetes mellitus with microalbuminuria, with long-term current use of insulin (CMS/HCC) Inject 2.5 mg under the skin 1 (one) time per week 2 mL 3 01/09/2024 05/13/2024 DiscontinuedStart: 66-03-6649mizbrd 2.5 mg by subcutaneous injection every week Tirzepatide (Mounjaro) 2.5 MG/0.5ML solution pen-injector Indications: Type 2 diabetes mellitus with microalbuminuria, with long-term current use of insulin (CMS/HCC) Inject 2.5 mg under the skin 1 (one) time per week 2 mL 3 01/09/2024 Activetirzepatide (MOUNJARO) 5 mg/0.5 mL pen injector (20 sources)Start: 67-78-5415xbnczfofoea (MOUNJARO) 5 mg/0.5 mL pen injector Indications: Type 2 diabetes mellitus with hyperglycemia, with long-term current use of insulin (CMS-HCC) Inject 5 mg under the skin every 7 days. 6 mL3 10/07/2024 ActiveTirzepatide (Mounjaro) 5 MG/0.5ML solution pen-injector (20 sources)Start: 05-13-2024 End: 27-41-2148mwktwv 5 mg by subcutaneous injection every weekTirzepatide (Mounjaro) 5 MG/0.5ML solution pen-injector Indications: Type 2 diabetes mellitus with hyperglycemia, with long-term current use of insulin (CMS/HCC) Inject 5 mg under the skin 1 (one) time per week 2 mL 5 05/13/2024 08/06/2024 DiscontinuedStart: 86-39-4444bxznrm 5 mg by subcutaneous injection every week Tirzepatide (Mounjaro) 5 MG/0.5ML solution pen-injector Indications: Type 2 diabetes mellitus with hyperglycemia, with long-term current use of insulin (CMS/HCC) Inject 5 mg under the skin 1 (one) time per week 2 mL 5 05/13/2024 ActiveStart: 05-13-2024 End: 20-27-6937jcecgz 5 mg by subcutaneous injection every weekTirzepatide [...] mg oral tablet (20 sources)Serotonin Reuptake InhibitorStart: 72-65-4910mehg 1 tablet by mouth once dailyStart: 03-69-9009ppdq 3 tablets by mouth once daily at bedtime as needed for sleepTRELEGY ELLIPTA 200-62.5-25 mcg blister with device (20 sources)Start: 67-63-0935laru 1 puff(s) by inhalation in the morningTRELEGY ELLIPTA 200-62.5-25 mcg blister with device Inhale 1 puff in the morning. 60 each 11 03/24/2025 ActiveStart: 02-17-2025 End: 20-37-3369yyrj 1 puff(s) by inhalation in the morningTRELEGY ELLIPTA 200-62.5-25 mcg blister with device Inhale 1 puff in the morning. 60 each 02/17/2025 03/24/2025 Discontinued (Reorder)Start: 84-04-4771zays 1 puff(s) by inhalation in the morningTRELEGY ELLIPTA 200-62.5-25 mcg blister with device Inhale 1 puff in the morning. 60 each 02/17/2025 ActiveStart: 02-17-2025 End: 15-34-6626sohw 1 puff(s) by inhalation in the morningTRELEGY ELLIPTA 200-62.5-25 mcg blister with device Inhale 1 puff in the morning. 60 each 02/17/2025 02/17/2025 DiscontinuedStart: 08-14-2024 End: 61-14-1033eevl 1 puff(s) by inhalation in the morningTRELEGY ELLIPTA 200-62.5-25 mcg blister with device Inhale 1 puff in the morning. 08/14/2024 02/17/2025 Discontinued (Reorder)Start: 98-46-0900uosp 1 puff(s) by inhalation in the morningTRELEGY ELLIPTA 200-62.5-25 mcg blister with device Inhale 1 puff in the morning. 08/14/2024 ActiveTrelegy Ellipta 200-62.5-25 MCG/ACT aerosol powder (20 sources)Start: 61-75-1179irde 1 puff(s) by inhalation in the morningTrelegy Ellipta 200-62.5-25 MCG/ACT aerosol powder Inhale 1 puff in the morning. 03/21/2024 ActiveTRULICITY 4.5 mg/0.5 mL pen injector (17 sources)Start: 67-63-1025gofucu 4.5 mg by subcutaneous injection every week TRULICITY 4.5 mg/0.5 mL pen injector INJECT 4.5 MG SUBCUTANEOUSLY ONCE EVERY WEEK 11/25/2023 Active Completed/Discontinued Medications MedicationDrug Class(es)DatesSig (Normalized)Sig (Original)acetaminophen 300 mg / codeine phosphate 30 mg oral tablet (1 source)Opioid Agonist End: 85-03-4135alfd 1 tablet by mouth every six hours as needed for pain acetaminophen-codeine (TYLENOL #3) 300-30 MG per tablet Take 1 tablet by mouth every 6 hours as needed for Pain. 0 10/02/2021 Discontinued (Stop Taking at Discharge)azithromycin (ZITHROMAX) 500 mg in dextrose 5% 250 mL IVPB (1 source)Start: 09-28-2021 End: 00-49-5882eltbnrwvpnzl (ZITHROMAX) 500 mg in dextrose 5% 250 mL IVPB cefTRIAXone (ROCEPHIN) 1000 mg IVPB in 50 mL D5W minibag (1 source)Start: 09-28-2021 End: 59-14-7993zfrQYBDMmkc (ROCEPHIN) 1000 mg IVPB in 50 mL D5W minibag Continuous Blood Gluc Sensor (FreeStyle Crystal 14 Day Sensor) [facility] [place] (20 sources)Start: 11-02-2023 End: 74-13-0905Bihobbcmwr Blood Gluc Sensor (FreeStyle Crystal 14 Day Sensor) [facility] [place] Indications: Type 2 diabetes mellitus with microalbuminuria, with long-term current use of insulin ([facility]) apply 1 SENSOR to back OF UPPER ARM REMOVE AND REPLACE every 14 d... (REFER TO PRESCRIPTION NOTES). 2 each 11/02/202309/04 Discontinued (Reorder)Start: 27-28-2463Pymwpgzzfc Blood Gluc Sensor (FreeStyle Crystal 14 Day Sensor) [facility] [place] Indications: Type 2 diabetes mellitus with microalbuminuria, with long-term current use of insulin (CMS/[facility]) apply 1 SENSOR to back OF UPPER ARM REMOVE AND REPLACE every 14 d... (REFER TO PRESCRIPTION NOTES). 2 each 11/02/2023 ActiveStart: 36-74-1102Ddhqadwqkh Blood Gluc Sensor (FreeStyle Crystal 14 Day Sensor) [facility] [place] apply 1 SENSOR to back OF UPPER ARM REMOVE AND REPLACE every 14 d... (REFER TO PRESCRIPTION NOTES). 0 02/09/2023 Active0.5 ml dulaglutide 1.5 mg/ml auto-injector (20 sources)GLP-1 Receptor AgonistStart: 26-63-1215Ineejhgymje (Trulicity) 1.5 mg/0.5 mL pen injector Active 1.5 MG SUBCUT every week June 04, 2025 12:00am Complies with drug therapyStart: 03-12-2025 End: 60-22-1227Advlccprozt (Trulicity) 0.75 mg/0.5 mL pen injector Discontinued 0.75 MG SUBCUT Once a week May 01, 2025 12:00am June 04, 2025 11:40am Start: 01-01-2025 End: 47-28-3058iuotvm 0.75 mg by subcutaneous injection every weekDulaglutide (Trulicity) 0.75 MG/0.5ML solution auto-injector Indications: Type 2 diabetes mellitus with hyperglycemia, with long-term current use of insulin ([facility]) Inject 0.75 mg under the skin 1 (one) time per week 2 mL 2 01/01/2025 02/10/2025 DiscontinuedglipiZIDE 10 mg oral tablet (1 source)Sulfonylurea End: 07-27-8404ndig 1 tablet by mouth twice daily before mealtimeglipiZIDE (GLUCOTROL) 10 MG tablet Take 10 mg by mouth 2 times daily (before meals) 0 10/02/2021 Discontinued (Stop Taking at Discharge)insulin regular (HUMULIN R;NOVOLIN R) 100 Units in sodium chloride 0.9 % 100 mL infusion (1 source)Start: 09-28-2021 End: 60-38-3455bwqzsrd regular (HUMULIN R;NOVOLIN R) 100 Units in [...] injection 50 mL (1 source)Start: 10-01-2021 End: 42-97-4759korymds (OMNIPAQUE 240) injection 50 mLpotassium phosphate 30 mmol in dextrose 5 % 250 mL IVPB (1 source)Start: 10-01-2021 End: 84-71-2285lnjxoehtm phosphate 30 mmol in dextrose 5 % 250 mL IVPBsertraline 100 mg oral tablet (20 sources)Serotonin Reuptake InhibitorStart: 01-22-2024 End: 40-08-8925oyvj 2 tablets by mouth once dailysertraline (Zoloft) 100 MG tablet Indications: JOHN (generalized anxiety disorder) ([facility]) Take 2 tablets (200 mg) by mouth Daily 60 tablet 11 01/22/2024 02/10/2025 DiscontinuedStart: 21-03-9609ywnc 100 mg by mouth once upotk571 mg, oral, Daily, First dose on Joaquina 12/21/23 at 0900, Look-alike/sound-alike medication - verify indication for use. Start: 06-11-2018 End: 62-34-9069tjbf 1 tablet by mouth once daily in [...] 1,000 mL infusion (1 source)Start: 09-30-2021 End: 82-71-8056uepkzb bicarbonate 100 mEq in dextrose 5 % 1,000 mL infusion Tirzepatide (Mounjaro) 2.5 MG/0.5ML solution auto-injector (11 sources)Start: 02-11-2025 End: 71-26-3185ymweew 2.5 mg by subcutaneous injection every weekTirzepatide (Mounjaro) 2.5 MG/0.5ML solution auto-injector Indications: Type 2 diabetes mellitus with hyperglycemia, with long-term current use of insulin ([facility]) Inject 2.5 mg under the skin 1 (one) time per week 2 mL 5 02/11/2025 03/05/2025 DiscontinuedStart: 51-97-7451aixbdh 2.5 mg by subcutaneous injection every week Tirzepatide (Mounjaro) 2.5 MG/0.5ML solution auto-injector Indications: Type 2 diabetes mellitus with hyperglycemia, with long-term current use of insulin (HCC) Inject 2.5 mg under the skin 1 (one) time per week 2 mL 5 02/11/2025 ActiveStart: 27-85-0880njutzw 2.5 mg by subcutaneous injection every week Tirzepatide (Mounjaro) 2.5 MG/0.5ML solution auto-injector Indications: Type 2 diabetes mellitus with hyperglycemia, with long-term current use of insulin (CMS/HCC) Inject 2.5 mg under the skin 1 (one) time per week 2 mL 5 02/10/2025 Active End: 12-90-3316Gmzztjyoazc (Mounjaro) 2.5 MG/0.5ML solution auto-injector Inject under the skin 03/05/2025 DiscontinuedTirzepatide (Mounjaro) 2.5 MG/0.5ML solution auto-injector Inject under the skin ActiveTirzepatide (Mounjaro) 7.5 MG/0.5ML solution auto-injector (16 sources)Start: 08-06-2024 End: 06-38-2681dtqcth 7.5 mg by subcutaneous injection every weekTirzepatide (Mounjaro) 7.5 MG/0.5ML solution auto-injector Indications: Type 2 diabetes mellitus with hyperglycemia, with long-term current use of insulin (CMS/HCC) Inject 7.5 mg under the skin 1 (one) time per week 2 mL 5 08/06/2024 10/28/2024 DiscontinuedStart: 06-70-5420gwfnsp 7.5 mg by subcutaneous injection every week Tirzepatide (Mounjaro) 7.5 MG/0.5ML solution auto-injector Indications: Type 2 diabetes mellitus with hyperglycemia, with long-term current use of insulin (CMS/HCC) Inject 7.5 mg under the skin 1 (one) time per week 2 mL 5 08/06/2024 Active Problems Active Problems Problem ClassificationProblemDateDocumented DateEpisodic/ChronicAbdominal pain (7 sources)Unspecified abdominal pain; Translations: [Pain in female pelvis] Onset: 91-22-5322KfqxlknySnfysdm disorders (20 sources)Anxiety disorder, unspecified; Translations: [Anxiety state]Onset: 929840-84-1166IgrolwfLuqokm (20 sources)Uncomplicated moderate persistent asthma; Translations: [Moderate persistent asthma, uncomplicated]Onset: 412301-28-7517EpgjnayIlktcbwo (2 sources)Posterior subcapsular polar age-related cataract, left eye; Translations: [Posterior subcapsular polar age-related cataract, right eye] Onset: 19-73-0500LrawzlkBqmpoic obstructive pulmonary disease and bronchiectasis (20 sources)Acute exacerbation of chronic obstructive airways disease; Translations: [Chronic obstructive pulmonary disease with (acute) exacerbation] Onset: 07-21-2024 Resolved: 599863-76-2572WtamddkRssmpksnby heart failure; nonhypertensive (20 sources)Chronic heart failure co-occurrent with normal ejection fraction; Translations: [Chronic diastolic (congestive) heart failure]Onset: 04-06-2023 66-49-8486LtvqaiaZzwrpccf mellitus with complications (20 sources)Type 1 diabetes mellitus; Translations: [Type 1 diabetes mellitus with ketoacidosis without coma]Onset: 09-30-2009 Resolved: 03-62-6180CudpykkVxlfqbiwn of lipid metabolism (20 sources)Dyslipidemia; Translations: [Hyperlipidemia, unspecified]Onset: 439285-84-3671HjwyyjiPagvwkewdl disorders (20 sources)Gastroesophageal reflux disease; Translations: [Gastro-esophageal reflux disease without esophagitis]Onset: 916206-84-7794CmrofzdCozwgsssk hypertension (20 sources)Hypertensive disorder; Translations: [Essential (primary) hypertension]Onset: 644463-76-2728NbhfxwdKltrmqkb; including migraine (20 sources)Migraine without aura, not refractory ; Translations: [Migraine without aura, not intractable, without status migrainosus]Onset: 04-06-2023 35-27-0617CpkoylwGujiivsf disorders (2 sources)Secondary immune deficiency disorder; Translations: [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 elsewhere (CMS/[facility])]97-86-7527HajrqsxWhaic disorders and dislocations; trauma-related (4 sources)Derangement of left knee; Translations: [Unspecified internal derangement of left knee]46-50-3893OrydwypDoesg disorders and dislocations; trauma-related (4 sources)Acute tear of medial meniscus of left knee; Translations: [Other tear of medial meniscus, current injury, left knee, initial encounter]03-23-2025 EpisodicMenopausal disorders (20 sources)Menopausal and female climacteric states; Translations: [Menopausal flushing]Onset: 35-08-4575FnqxextDvkq disorders (20 sources)Major depressive disorder, recurrent, unspecified; Translations: [Recurrent major depressive episodes, mild ]Onset: hronic Osteoarthritis (20 sources)Unspecified osteoarthritis, unspecified site; Translations: [Osteoarthritis of knee]Onset: 999893-33-7396FaabifzAxctr acquired deformities (20 sources)Contracture of ankle joint; Translations: [Contracture, unspecified ankle]Onset: 520498-20-6065LipchxtYvsxv aftercare (1 source)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; Translations: [OTH ASSISTED CURRENT DRUG THERAPY]Onset: 02-39-5512MvntqjdbVrktm connective tissue disease (2 sources)Inflammatory neuropathy ; Translations: [Neuralgia and neuritis, unspecified]02-18-3302DurzqzjvXudzb diseases of bladder and urethra (20 sources)Overactive bladder; Translations: [Overactive bladder]Onset: 679473-22-2855PnjozzdMenmj female genital disorders (1 source)Ovarian pain; Translations: [Other specified conditions associated with female genital organs and menstrual cycle]81-09-7324YfgvxkhvOjtta gastrointestinal disorders (1 source)Irritable bowel syndrome with diarrhea; Translations: [IRRITABLE BOWEL SYND W/DIARRHEA]Onset: 34-04-2311WyswwhuYhyac gastrointestinal disorders (20 sources)Irritable bowel syndrome with diarrhea; Translations: [Irritable bowel syndrome with diarrhea]Onset: 313310-30-8798GdyjuagYjsjm gastrointestinal disorders (4 sources)Change in bowel habit; Translations: [CHANGE IN BOWEL HABIT]Onset: 03-16-8700YhdswxyyFhgmr lower respiratory disease (4 sources)Dyspnea; Translations: [Shortness of breath]84-32-2829InqnszmkYyhum lower respiratory disease (1 source)Hypoxemia; Translations: [Hypoxemia]Onset: 68-52-7273JpksnvzkPkxky lower respiratory disease (1 source)CoughOnset: 67-44-1902XvwzqocqYrjfi lower respiratory disease (1 source)WheezingOnset: 29-63-4363JmdpmcbeKomjm nervous system disorders (20 sources)Chronic pain; Translations: [Other chronic pain]Onset: 04-06-2023 Resolved: 363386-77-8015RdvqyprIbfgf nervous system disorders (20 sources)Carpal tunnel syndrome of right wrist; Translations: [Carpal tunnel syndrome, right upper limb]Onset: 516698-65-3346AljdrbqSjeje nervous system disorders (1 source)Postoperative pain ; Translations: [Other acute postprocedural pain] 52-28-9740YkmflammFetbm non-traumatic joint disorders (20 sources)Derangement of left shoulder joint; Translations: [Other specific joint derangements of left shoulder, not elsewhere classified]Onset: 04-06-2023 59-40-9401OxovdvyEwcbv non-traumatic joint disorders (2 sources)Pain of right wrist; Translations: [Pain in right wrist]05-30-2024 EpisodicOther nutritional; endocrine; and metabolic disorders (20 sources)Morbid obesity; Translations: [Morbid (severe) obesity due to excess calories]Onset: 670204-13-6803NtnnkamIlefq nutritional; endocrine; and metabolic disorders (20 sources)Alveolar hypoventilation; Translations: [Morbid (severe) obesity with alveolar hypoventilation]Onset: 011733-52-0978JeiwbgsNwevn nutritional; endocrine; and metabolic disorders (20 sources)Body mass index 40+ - severely obese; Translations: [Body mass index (BMI) 45.0-49.9, adult]Onset: 06-05-2023 Resolved: 012261-16-1038EahjsgxSymzz nutritional; endocrine; and metabolic disorders (20 sources)Severe obesity; Translations: [Class 3 severe obesity due to excess calories with serious comorbidity and body mass index (BMI) of 40.0 to 44.9 in adult]Onset: 120698-79-8685WwiyqolDietj nutritional; endocrine; and metabolic disorders (1 source)Morbid (severe) obesity due to excess calories; Translations: [Morbid (severe) obesity due to excess calories]Onset: 23-14-0231TwdbiisSvqhp upper respiratory disease (20 sources)Allergic rhinitis; Translations: [Allergic rhinitis, unspecified] Onset: 122112-22-0172IbnqptbCjqzv upper respiratory disease (6 sources)Lesion of skin of nose; Translations: [Disorder of the skin and subcutaneous tissue, unspecified]EpisodicPulmonary heart disease (20 sources)Pulmonary hypertension; Translations: [Pulmonary hypertension, unspecified]Onset: 544160-73-3931EfzfaglVnlxwaqb codes; unclassified (3 sources)Obstructive sleep apnea (adult) (pediatric); Translations: [OBSTRUCTIVE SLEEP APNEA]Onset: 24-67-9417CnnaumlNmrcizal codes; unclassified (20 sources)Obstructive sleep apnea syndrome; Translations: [Obstructive sleep apnea (adult) (pediatric)]Onset: 864084-56-8168SztswaqIuqtiaqm codes; unclassified (1 source)Sleep apneaOnset: 75-31-8351YixcqwfOoxvqkuy codes; unclassified (2 sources)Pain; Translations: [Pain]Onset: 01-05-0399BplmvvltFfvzalal codes; unclassified (1 source)Unable to comply with treatment; Translations: [Noncompliance with CPAP treatment]56-52-4824AnymlggaKdcriwclgjp failure; insufficiency; arrest (adult) (20 sources)Chronic hypoxemic respiratory failure; Translations: [Chronic respiratory failure with hypoxia]Onset: 02-19-2024 Resolved: 508890-46-7629MgzfdwxGdvkiszmbew; intervertebral disc disorders; other back problems (20 sources)Spondylosis without myelopathy; Translations: [Spondylosis without myelopathy or radiculopathy, site unspecified]Onset: hronic Unclassified (2 sources)Post-op; Translations: [Post-op]Onset: 27-49-6165Ehjysyyrjagm (3 sources)Patient encounter status; Translations: [Colon Cancer Screening] Onset: 892789-60-0011Wrauhcdouzio (2 sources)Acute pain of left uxfd85-90-3524Lagdfygosgyk (1 source)Pulm HTNOnset: 57-51-5305Vmgpirnqotuw (2 sources)L98.9 - Disorder of the skin and subcutaneous tissue, unspecified Unclassified (1 source)Pre-op ExamOnset: 02-32-6185Cpdyrmvpqomg (1 source)EMSOnset: 07-21-2024 Past or Other Problems Problem ClassificationProblemDateDocumented DateEpisodic/ChronicAcquired foot deformities (20 sources)Plantarflexion deformity of left foot; Translations: [Other acquired deformities of left foot]Onset: 483998-78-3724OerglhmpDqysf and unspecified renal failure (20 sources)Acute renal impairment; Translations: [Acute kidney failure with tubular necrosis]Onset: 09-30-2021 Resolved: 29-67-6372LactcgskVeotlxtztpcmla/social admission (2 sources)Follow-up status; Translations: [Person consulting for explanation of examination or test findings]54-70-3066DjbuczcyQujuckedzf associated with dizziness or vertigo (1 source)Dizziness and giddiness; Translations: [Dizziness and giddiness]Onset: 00-90-3958HobfdnefFkdefjjy atherosclerosis and other heart disease (20 sources)Preinfarction syndrome; Translations: [Unstable angina]Onset: 06-05-2023 Resolved: 331045-21-0313KvypchoXocfotbyfvvww disorders (20 sources)Developmental delay; Translations: [Developmental disorder of scholastic skills, unspecified]Onset: 09-30-2009 Resolved: 16-63-8118GzyanjhYbnkhess mellitus without complication (20 sources)Type 2 diabetes mellitus; Translations: [Type 2 diabetes mellitus without complications]Onset: 09-30-2009 Resolved: 592963-05-4980NgvgnarZhrghpub mellitus without complication (20 sources)Hyperglycemia; Translations: [Hyperglycemia, unspecified]Onset: 03-01-2019 Resolved: 571555-34-2509CxbgarfqIzlyk and electrolyte disorders (20 sources)Metabolic acidosis, increased anion gap (IAG); Translations: [Acidosis]Onset: 09-30-2021 Resolved: 78-84-7784SvrnbaprXghxqiwnpmzvh and screening for infectious disease (1 source)Encounter for screening for human papillomavirus (HPV); Translations: [ENC SCREENING HUMAN PAPILLOMAVIRUS]Onset: 15-87-5384XjmwqwqcYmttdhmovjwrq (20 sources)Mediastinal lymphadenopathy; Translations: [Localized enlarged lymph nodes]Onset: 807738-02-7513MfcxceuqUreuswdcm disorders (20 sources)Irregular menstruation, unspecified; Translations: [Missed period] Onset: 09-16-2022 Resolved: 796473-85-4209EazcoxyFytg disorders (20 sources)Mood disordersOnset: Nausea and vomiting (20 sources)Nausea and vomiting; Translations: [Nausea with vomiting, unspecified]Onset: 936690-34-4526NrcifmbzEojbmvnqign chest pain (20 sources)Chest pain; Translations: [Other chest pain]Onset: 06-04-2023 Resolved: 522250-22-8852GqakgemeCjnle aftercare (2 sources)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; Translations: [REPORTS ANALYST CURRENT USE OF INSULIN]Onset: 36-28-0612LhsqzacgFgcwl aftercare (20 sources)Long-term current use of drug therapy; Translations: [Other care home (current) drug therapy]Onset: 481766-78-0104SlqswgrmAjlue and unspecified benign neoplasm (1 source)Polyp of colon; Translations: [Polyp of colon]Onset: 09-12-2024 EpisodicOther circulatory disease (20 sources)Elevated blood-pressure reading without diagnosis of hypertension; Translations: [Elevated blood-pressure reading, without diagnosis of hypertension]Onset: 207130-67-9207NdzqhgerRdhyq gastrointestinal disorders (20 sources)Incontinence of feces; Translations: [Full incontinence of feces] Onset: 06-22-2016 Resolved: 443944-75-1674TckhrnrjTgsmj lower respiratory disease (20 sources)Cavitation of lung; Translations: [Other disorders of lung]Onset: 08-10-2023 Resolved: 954976-96-5174IjxxgwlzWdcui lower respiratory disease (20 sources)Hypoxia; Translations: [Hypoxemia]Onset: 01-04-2024 Resolved: 123140-65-0681UfseaxvjPdnbs lower respiratory disease (20 sources)Nodule of lung; Translations: [Solitary pulmonary nodule]Onset: 363268-67-6723RkfaqewgCgyza lower respiratory disease (20 sources)Dyspnea on exertion; Translations: [Other forms of dyspnea]Onset: 612968-65-5979IramhupiZituv lower respiratory disease (2 sources)Other forms of dyspnea; Translations: [Other forms of dyspnea]Onset: 98-01-4305UxhxobqoPxjku lower respiratory disease (2 sources)Shortness of breathOnset: 03-73-6607PfcfdqgwDsyby lower respiratory disease (1 source)Solitary pulmonary nodule; Translations: [Solitary pulmonary nodule] Onset: 41-11-8358QdmvrcjkIwrnk nervous system disorders (20 sources)Lesion of ulnar nerve, left upper limb; Translations: [Lesion of ulnar nerve]Onset: 11-04-2022 Resolved: 66-28-3789ZnyjsgiKptha nervous system disorders (20 sources)Carpal tunnel syndrome of left wrist; Translations: [Carpal tunnel syndrome, left upper limb]Onset: 04-06-2023 Resolved: 520414-30-8515OpoyyicAlrpc non-traumatic joint disorders (20 sources)Pain in left shoulder; Translations: [Pain in joint, shoulder region]Onset: 04-06-2023 Resolved: 062561-41-4988TrqdalatHstel non-traumatic joint disorders (20 sources)Shoulder joint pain; Translations: [Pain in unspecified shoulder] Onset: 04-06-2021 Resolved: 378984-23-8948JzaklokdFrisr non-traumatic joint disorders (20 sources)Pain in right knee; Translations: [Pain in joint, lower leg]Onset: 05-29-2024 Resolved: 937125-10-0943SjkxgnikAqtyb nutritional; endocrine; and metabolic disorders (20 sources)Developmental delay; Translations: [Unspecified lack of expected normal physiological development in childhood]Onset: EpisodicOther conditions (20 sources)Convulsions in the ; Translations: [Convulsions of ] Onset: 09-30-2009 Resolved: 355629-33-9103CczwnqgqBdkyu screening for suspected conditions (not mental disorders or infectious disease) (20 sources)Encounter for screening for malignant neoplasm of cervix; Translations: [Encounter for screening mammogram for malignant neoplasm of breast]Onset: 96-13-7498NiuswqvuRnncqmbvw; thrombophlebitis and thromboembolism (1 source)Personal history of other venous thrombosis and embolism; Translations: [PERS HX OTH VENOUS THROMBOSIS AND EMBO]Onset: 95-02-7521Ctzvmdvd Pneumonia (except that caused by tuberculosis or sexually transmitted disease) (20 sources)Infective pneumonia; Translations: [Pneumonia, unspecified organism] Onset: 09-29-2021 Resolved: 28-33-9627JkjbvoubMwykywmlu by other medications and drugs (1 source)Poisoning by insulin and oral hypoglycemic [antidiabetic] drugs, accidental (unintentional), initial encounter; Translations: [POISON INSULIN ORAL HG RX ACC INIT]Onset: 04-38-7273GgputiknUpcizrhtn heart disease (1 source)Personal history of pulmonary embolism; Translations: [PERSONAL HISTORY PULMONARY EMBOLISM]Onset: 75-19-2586AfqzkynaQeidjzbb codes; unclassified (1 source)Acquired absence of other specified parts of digestive tract; Translations: [ACQ ABSENCE OTH PART DIGESTV TRACT]Onset: 31-17-2022Iizfaxhk Residual codes; unclassified (20 sources)Edema; Translations: [Edema, unspecified]Onset: EpisodicResidual codes; unclassified (2 sources)Edema, generalized; Translations: [Generalized edema]05-13-2024 EpisodicUrinary tract infections (20 sources)Acute cystitis; Translations: [Acute cystitis without hematuria] Onset: 714269-44-3858IvacfzdtPguhk infection (20 sources)Genital warts; Translations: [Anogenital (venereal) warts]Onset: 855763-49-2270Rmdniada Results Test NameValueInterpretationReference RangeFacilityCapillary blood glucose measurement by glucometer (mass/volume)Ordered By: Randall Soria on 46-26-6225Ahvvatz [Mass/Vol]160 mg/dLNoUniversity Hospitals [facility] Comment on above:Random Glucose Reference [...] Point of Care testing ,Glucose Poct Glucometerson 60-57-8424Bvewzik6Xpt7: Cleaned [facility] Physician GroupComment on above:Result Comment: PERFORMED BY: [address] [place] [address] PATHOLOGIST LINE TENDER FLAKEBOARD CHANDA ROBERTS M.D.Performed By: #### GLULS #### Point of Care testing ,No Panel InformationOrdered By: Randall Soria on 42-29-2538Eypufpe Glucose CommentGlu2: cleaned [facility] HospitalALL BASIC METABOLIC PANELon 12-82-8378Bkkuw gap [Moles/Vol]7.9 mmol/LNOMS HealthcareCalcium [Mass/Vol]9 mg/dL8.5 - 10.1 mg/dLNOMN HealthcareChloride [Moles/Vol]98 mmol/L98 - 107 mmol/LNOMS HealthcareCO2 [Moles/Vol]30.6 mmol/L21.0 - 32.0 mmol/LNOMS HealthcareCreatinine [Mass/Vol]0.94 mg/dL0.55 - 1.02 mg/dLNOSSM Rehab GFR/1.73 sq M.predicted CKD-EPI (S/P/Bld) [Vol rate/Area]>60>=60 mL/min/1.73m 2 NOMS HealthcareGlucose [Mass/Vol]393 mg/sOCduv24 - 106 mg/dLNOSSM Rehab Interpretation and review of laboratory resultsAbnormalNOMN HealthcarePotassium [Moles/Vol]4.5 mmol/L3.5 - 5.1 mmol/LNOMS HealthcareSodium [Moles/Vol]132 mmol/L Fkq463 - 145 mmol/LNOMS HealthcareTBH EGFR-NON AF [place]>60>=60 mL/min/1.73m 2 NOMS HealthcareUrea nitrogen [Mass/Vol]25 mg/dLHigh7.0 - 18.0 mg/dLNOMS HealthcareUrea nitrogen/Creatinine [Mass ratio]26.6 mg/mgNOMS Healthcare CLINISYNCNOMS HealthcareECG 12-LEADon 76-32-4098[address] [place] [address] Electrocardiograph Report Signed Patient: CARISSA SANTOS MR#: [id number] : 1980 Acct:[id number] Age/Sex: 44 / F ADM Date: 06/05/25 Loc: [facility] Attending Dr: Feliz Benz D.O. Ordering Physician: Feliz Benz D.O. 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 Measurements Intervals [place] Rate: 85 P: 62 NH: 151 QRS: 109 QRSD: 89 T: 82 [...] Signed By: 06/05/25 1148 DD/ 0656 TD/TT: Exhauster:TBHRadiology, Radiologist, - 06/05/2025 [facility] [place] [id number] Electrocardiograph Report Signed Patient: CARISSA SANTOS MR#: [id number] : 1980 Acct:[id number] Age/Sex: 44 / F ADM Date: 06/05/25 Loc: PST Attending Dr: Feliz Benz D.O. Ordering Physician: Feliz Benz D.O. 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 Measurements Intervals [place] Rate: 85 P: 62 NH: 151 QRS: 109 QRSD: 89 T: 82 [...] Signed By: 06/05/25 1148 DD/ 0656 TD/TT: Exhauster: CHELSEY HealthcareRadiology Study observation (narrative)[facility] HealthcareECG 12-LEAD Ordered By: Radiologist Radiology on 58-56-2331IIRJ Healthcare Work Phone: Glomerular filtration rate (GFR) estimation in non- AmericanOrdered By: Shama Medina on 25-13-3766MPT/1.73 sq M.predicted among non-blacks MDRD (S/P/Bld) [Vol rate/Area]mL/min/{1.73_m2}>=60 mL/min/1.73m 2FSelect Medical Cleveland Clinic Rehabilitation Hospital, BeachwoodLaboratory - Chemistry and Chemistry - challengeOrdered By: Shama Medina on 23-50-2036Yapbxco [Mass/Vol]9.0 mg/dL 8.5-10.1FSelect Medical Cleveland Clinic Rehabilitation Hospital, BeachwoodChloride [Moles/Vol]98 mmol/L98-107 [facility] CenterCO2 [Moles/Vol]30.6 mmol/L21.0-32.0[facility] CenterCreatinine [Mass/Vol]0.94 mg/dL0.55-1.02[facility] Medical CenterGFR/1.73 sq M.predicted MDRD (S/P/Bld) [Vol rate/Area] mL/min/{1.73_m2}>=60 mL/min/1.73m 2FSelect Medical Cleveland Clinic Rehabilitation Hospital, BeachwoodGlucose [Mass/Vol]393 mg/qVXkib05-549UuhvhzwswUniversity Hospitals Geneva Medical CenterPotassium [Moles/Vol]4.5 mmol/L3.5-5.1FHolzer Hospitalodium [Moles/Vol] 132 mmol/AXvl362-327EmjaejxogUniversity Hospitals Geneva Medical CenterUrea nitrogen [Mass/Vol] 25.0 mg/dLHigh7.0-18.0[facility] Medical CenterUrea nitrogen/Creatinine [Mass ratio]26.6 mg/mgSelect Medical Specialty Hospital - Cantonerum or plasma anion gap determinationOrdered By: Shama Medina on 23-10-6975Kllsu gap [Moles/Vol]7.9 mmol/LFSelect Medical Cleveland Clinic Rehabilitation Hospital, BeachwoodCapillary blood glucose measurement by glucometer (mass/volume)Ordered By: Randall Soria on 98-76-5973Awvjevl [Mass/Vol]99 mg/dLNoUniversity Hospitals Elyria Medical CenterComment on above:Random Glucose Reference Range [...] Point of Care testing ,Glucose Poct Glucometerson 77-37-1326Skuqxej2Ayu0: Cleaned [facility] Physician GroupComment on above:Result Comment: PERFORMED BY: [facility] [place] [address] PATHOLOGIST LINE TENDER FLAKEBOARD CHANDA ROBERTS M.D.Performed By: #### GLULS #### Point of Care testing ,No Panel InformationOrdered By: Randall Soria on 71-93-1043Jfvpsqp Glucose CommentGlu2: cleaned [facility] HospitalALL CBC WITH AUTO DIFFon 94-83-3106OJCAUYBAB ABSOLUTE IQMO2ZQNM HealthcareBasophils/100 WBC (Bld) 0.3 %0.2 - 2.0 %NOMS HealthcareEosinophils/100 WBC (Bld)1.2 %0.9 - 7.0 %NOMSt. Joseph Medical CenterErythrocyte distribution width (RBC) [Ratio]12.7 %11.0 - 15.0 %NOMSt. Joseph Medical CenterHematocrit (Bld) [Volume fraction]41.8 %36.0 - 48.0 %[facility] Hemoglobin (Bld) [Mass/Vol]13.2 g/dL12.0 - 16.0 g/dLNOSSM RehabIMMATURE GRANULOCYTES ABS AUTO0.01NOMS HealthcareImmature granulocytes/100 WBC (Bld)0.1 % 0.0 - 0.5 %[facility] CenterInterpretation and review of laboratory results AbnormalNOSSM RehabLYMPHOCYTES ABSOLUTE AUTO2.5NOM[facility] Healthcare Lymphocytes/100 WBC (Bld)33.5 %20.5 - 60.0 %[facility] (RBC) [Entitic mass]28.8 pg26.7 - 34.0 pgNOCox BransonHC (RBC) [Mass/Vol]31.6 g/dL29.9 - 35.2 g/dLCameron Regional Medical CenterMCV (RBC) [Entitic vol]91.1 fL81.0 - 99.0 fLNOMN HealthcareMONOCYTES ABSOLUTE AUTO0.4NOMS HealthcareMonocytes/100 WBC (Bld)5.4 % 1.7 - 12.0 %NOM HealthcareNEUTROPHILS ABSOLUTE AUTO4.4NOMS Healthcare Neutrophils/100 WBC (Bld)59.5 %43.0 - 75.0 %NOMSt. Joseph Medical CenterPlatelet mean volume (Bld) [Entitic vol]9.3 fLLow9.5 - 13.5 fLNONorth [facility] EO #0.1NOMS HealthcareTB YTO861FHEA [facility] HospitalTB RBC4.59NOMS HealthcareTB WBC7.4NOMS HealthcareCLINISYNCNOMS HealthcareUS PELVIS W/ TRANSVAGINALon 76-71-2458X[address] [address] Ultrasound Report Signed Patient: CARISSA SANTOS MR#: [id number] : 1980 Acct:[id number] Age/Sex: 44 / F ADM Date: 04/24/25 Loc: US Attending Dr: Romana Whitmore Ordering Physician: Romana Whitmore Date of Service: 04/24/25 Procedure(s): US pelvis w/ transvaginal Accession Number(s): [id number] cc: Romana Whitmore; Diaz Dalton M.D. The [place] [id number] Patient Name: CARISSA SANTOS MRN: [id number] date: 1980 Sex: F Assigned Patient Location: Current Patient Location: [facility] Accession/Order Number: [id number] Exam Date: 04/24/2025 13:27 Report Date: 04/24/2025 [...] Torres M.D. 04/24/2025 4:10 PM Dictation Location: [place] [address] Electronically authenticated by: [id number] Y Date: 04/24/2025 16:10 Dictated By: Gallito Torres D.O. Signed By: 04/24/25 1619 DD/ 09 TD/TT: Exhauster:NAILAHRadiologmarco antonio, Radiologist, - 04/24/2025 [place] [address] Ultrasound Report Signed Patient: CARISSA SANTOS MR#: [id number] : 1980 Acct:[id number] Age/Sex: 44 / F ADM Date: 04/24/25 Loc: US Attending Dr: Romana Whitmore Ordering Physician: Romana Whitmore Date of Service: 04/24/25 Procedure(s): US pelvis w/ transvaginal Accession Number(s): [id number] cc: Romana Whitmore; Diaz Dalton M.D. The [place] [address] Patient Name: CARISSA SANTOS MRN: [id number] date: 1980 Sex: F Assigned [facility]: [facility]/Order Number: [id number] Exam Date: 04/24/2025 13:27 Report Date: 04/24/2025 [...] Torres M.D. 04/24/2025 4:10 PM Dictation Location: [place] [address] Electronically authenticated by: [id number] Y Date: 04/24/2025 16:10 Dictated By: Gallito Torres D.O. Signed By: 04/24/25 1619 DD/ 1610 TD/TT: Exhauster: CHELSEY HealthcareRadiology Study observation (narrative)[facility] HealthcareUS PELVIS W/ TRANSVAGINALOrdered By: Radiologist Radiology on 20-92-5015MZZZ [employer] Work Phone: MR KNEE LT WO CONon 28-63-2864[place] [phone] Magnetic Resonance Report Signed Patient: CARISSA SANTOS MR#: [id number] : 1980 Acct:[id number] Age/Sex: 44 / F ADM Date: 03/04/25 Loc: MRI Attending Dr: Shama KAPLAN Ordering Physician: Shama Medina Date of Service: 03/04/25 Procedure(s): MR knee LT wo con Accession Number(s): [id number] cc: Shama Medina; Diaz Dalton M.D. [place] [phone] Patient Name: ACRISSA SANTOS MRN: [id number] date: 1980 Sex: F Assigned Patient Location: MRI Current Patient Location: MRI Accession/Order Number: [id number] Exam Date: 03/04/2025 15:15 Report Date: 03/04/2025 [...] Torres M.D. 03/04/2025 3:29 PM Dictation Location: [place] [address] Electronically authenticated by: [id number] Y Date: 03/04/2025 15:29 Dictated By: Gallito Torres D.O. Signed By: 03/04/25 1532 DD/ 1529 TD/TT: Exhauster:NAILAHRadiology, Radiologist, - 03/04/2025 [place] [address] Magnetic Resonance Report Signed Patient: CARISSA SANTOS MR#: [id number] : 1980 Acct:[id number] Age/Sex: 44 / F ADM Date: 03/04/25 Loc: MRI Attending Dr: Shama KAPLAN Ordering Physician: Shama Medina Date of Service: 03/04/25 Procedure(s): MR knee LT wo con Accession Number(s): [id number] cc: Shama Medina; Diaz Dalton M.D. The [address] [address] Patient Name: CARISSA SANTOS MRN: [id number] date: 1980 Sex: F Assigned Patient Location: MRI Current Patient Location: MRI Accession/Order Number: [id number] Exam Date: 03/04/2025 15:15 Report Date: 03/04/2025 [...] Torres M.D. 03/04/2025 3:29 PM Dictation Location: RADIO-PC-20 Electronically authenticated by: [id number] Y Date: 03/04/2025 15:29 Dictated By: Gallito Torres D.O. Signed By: 03/04/25 1532 DD/ 1529 TD/TT: Exhauster: [facility] CenterRadiology Study observation (narrative)[facility] CenterMR KNEE LT WO CONOrdered By: Radiologist Radiology on 78-03-5050SSWWCameron Regional Medical Center Work Phone: XR Knee - left 1 or 2 Viewson 60-93-9490Eqzgm result: AP and Lateral left knee: No acute fracture or dislocation [place] suspected distal femur Symmetric joint space preservation Mild effusion Impression: no acute bony process left knee.[facility] Radiology Study observation (narrative)[facility] CenterHGB A1C (GLYCO-HGB)on 01-07-9745Pmhkkic [Mass/Vol]321 mg/dLNormalProWadley Regional Medical CenterComment on above:Performed By: #### RAMAKRISHNA, 74091-0, BMP, 54554-6, 81158-2, THYR, 24574-5 #### [facility] ([id number]) [address] [place] [address] 36472LlD7c (Bld) [Mass fraction]12.8 %High4.4-5.6ProMedica Defiance Regional HospitalComment on above:Result Comment: NOTE ADA Guidelines Result HgbA1c Normal : less than 5.7 % Prediabetes : 5.7 % to 6.4 % Diabetes : > 6.4 % Use with caution in patients with abnormal hemoglobin variants as the half-life of red blood cells and in vivo glycation rates are affected.Performed By: #### RAMAKRISHNA, 70977-8, BMP, 56233-1, 23687-8, THYR, 87015-7 #### [facility] ([id number]) [address] [place] [address] 46327HfB3e (Bld) [Mass fraction]on 96-34-9109Fyavahw glucose Estimated from glycated hemoglobin (Bld) [Mass/Vol]321 mg/dLCameron Regional Medical Center Comment on above:PERFORMED AT [facility] [address],[place], [place] [address]Jxkltuuqouccug and review of laboratory resultsAbnormOakleaf Surgical HospitalHemoglobin A1con 76-96-5581SrQ2s (Bld) [Mass fraction] 12.8 %High4.4 - 5.6 %[facility] HealthcareComment on above:NOTE ADA Guidelines Result HgbA1c Normal : less than 5.7 % Prediabetes : 5.7 % to 6.4 % Diabetes : > 6.4 % Use with caution in patients with abnormal hemoglobin variants as the half-life of red blood cells and in vivo glycation rates are affected. Beta hydroxybutyrate [Moles/Vol]on 56-01-8100QvmzRitdknwqjkcpqvt5.14 mmol/LHigh 0.02-0.27ProWadley Regional Medical CenterComment on above:Performed By: #### CBCA, 50402-1, BMP, 61448-9, 27056-2, THYR, 97213-4 #### [facility] ([id number]) [address] [place] [address] 48780DXE AND AUTO DIFFon 99-56-8865FMFMGZLX BASOPHIL0.0 X10E9/L Normal0.0-0.2ProMed[facility] Community HospitalComment on above:Performed By: #### CBCA, 31285-7, BMP, 70616-8, 31571-9, THYR, 76753-0 #### [facility] ([id number]) [address] [place] [address] 93995UHPTZQCT NEUTROPHIL3.5 X10E9/LNormal1.5-6.6ProWadley Regional Medical CenterComment on above:Performed By: #### CBCA, 56638-7, BMP, 68314-5, 92564- 7, THYR, 56138-7 #### [facility] ([id number]) [address] [place] [address] 75990Gvqdirfpq/100 WBC (Bld)0.5 %[facility] Comment on above:Performed By: #### CBCA, 69138-3, BMP, 73329-8, 30362-1, THYR, 80390-2 #### [facility] ([id number]) [address] [place] [address] 74202Ymlbakpyutn (Bld) [#/Vol]0.1 10*3/uLNormal0.0-0.4ProMedica Defiance Regional HospitalComment on above:Performed By: #### CBCA, 85475-0, BMP, 83421-2, 16740-7, THYR, 46473-9 #### [facility] ([id number]) [address] [place] [address] 33714Vnpkitercbl/100 WBC (Bld)0.8 %NormalProMedica Defiance Regional Hospital Comment on above:Performed By: #### CBCA, 00662-7, BMP, 34284-8, 66416-8, THYR, 64292-5 #### [facility] ([id number]) [address] [place] [address] 69315Tjtifyngliw distribution width (RBC) [Ratio]13.8 %Normal 11.5-15.0ProMedica Defiance Regional HospitalComment on above:Performed By: #### CBCA, 98984-4, BMP, 59289-7, 98476-3, THYR, 54001-7 #### [facility] ([id number]) [address] [place] [address] 89739Zzxxqkmfsr (Bld) [Volume fraction]44.0 %Athsbr62-61YhiMvbzjfWadley Regional Medical CenterComment on above:Performed By: #### CBCA, 70877-0, BMP, 14163-2, 79988-4, THYR, 53895-5 #### [facility] ([id number]) [address] [place] [address] 54156Xpftuspkoy (Bld) [Mass/Vol]15.1 g/oBQcuqal03.7-15.5PWayne HealthCare Main CampusComment on above:Performed By: #### CBCA, 34208-1, BMP, 54656-6, 91344-1, THYR, 96670-4 #### [facility] ([id number]) [address] [place] [address] 74019Bahcypyldha (Bld) [#/Vol]2.7 10*3/uLNormal1.0-3.5PWayne HealthCare Main CampusComment on above:Performed By: #### CBCA, 70435-4, BMP, 78660-1, 10091-2, THYR, 63785-0 #### [facility] ([id number]) [address] [place] [address] 79491Dlepoqqodqa/100 WBC (Bld)39.7 %NormalProMedica Defiance Regional Hospital Comment on above:Performed By: #### CBCA, 88697-3, BMP, 39914-8, 36415-8, THYR, 13856-7 #### [facility] ([id number]) [address] [place] [address] 87744DMS (RBC) [Entitic mass]28.7 trSsxfhi82-88SjyHafuhpWadley Regional Medical CenterComment on above:Performed By: #### CBCA, 23484-2, BMP, 52775-3, 37544- 7, THYR, 68756-0 #### [facility] ([id number]) [address] [place] [address] 11346IBXN (RBC) [Mass/Vol]34.4 g/dXKhkhml64-81EulCaecbyWadley Regional Medical CenterComment on above:Performed By: #### CBCA, 21596-0, BMP, 95236-2, 21488- 7, THYR, 22730-6 #### [facility] ([id number]) [address] [place] [address] 33738MIJ (RBC) [Entitic vol]84 kUTszlab22-989FetIhqpls [facility]remont HospitalComment on above:Performed By: #### CBCA, 64258-8, BMP, 25328-1, 09996- 7, THYR, 79205-1 #### [facility] ([id number]) [address] [place] [address] 67510Bqcrqzqqw (Bld) [#/Vol]0.4 10*3/uLNormal0-0.9ProMedica Defiance Regional HospitalComment on above:Performed By: #### CBCA, 68722-0, BMP, 32525-8, 93208- 7, THYR, 07608-5 #### [facility] ([id number]) [address] [place] [address] 08437Mqoaetfre/100 WBC (Bld)6.5 %NormalProMedica Defiance Regional Hospital Comment on above:Performed By: #### CBCA, 81542-2, BMP, 16904-6, 94359-3, THYR, 64840-1 #### [facility] ([id number]) [address] [place] [address] 07793Eguvqvndhlr/100 WBC (Bld)52.5 %[facility] Comment on above:Performed By: #### CBCA, 60980-3, BMP, 14127-4, 91175-2, THYR, 63485-6 #### [facility] ([id number]) [address] [place] [address] 42479Ibxkrozs mean volume (Bld) [Entitic vol]7.8 fLNormal7-12 ProMedicLos Angeles Community Hospital of NorwalkComment on above:Performed By: #### CBCA, 64486-3, BMP, 81209-5, 26288-5, THYR, 57680-2 #### [facility] ([id number]) [address] [place] [address] 49064Eqnqlyefq (Bld) [#/Vol]211 10*3/jIQpprhb912-746YafMlvdma [facility]remont HospitalComment on above:Performed By: #### CBCA, 48567-1, BMP, 84118-2, 40465-0, THYR, 09445-3 #### [facility] ([id number]) [address] [place] [address] 47209CKP COUNT5.26 X10E12/LHigh3.80-5.20ProWadley Regional Medical Center Comment on above:Performed By: #### RAMAKRISHNA, 26960-0, BMP, 65445-7, 13805-3, THYR, 94386-1 #### [facility] ([id number]) [address] [place] [address] 18669UIU (Bld) [#/Vol]6.7 10*3/uLNormal4.0-11.0ProWadley Regional Medical CenterComment on above:Performed By: #### CBCA, 31314-3, BMP, 96987-3, 64296- 7, THYR, 63790-6 #### [facility] ([id number]) [address] [place] [address] 34368QIVHGGIRYIPLH METABOLIC PANELon 53-33-9853Puixzmb [Mass/Vol]4.1 g/dLNormal3.2-5.3ProMedSequoia HospitalComment on above:Performed By: #### CBCA, 36880-9, BMP, 57942-2, 41383-7, THYR, 61005-3 #### [facility] ([id number]) [address] [place] [address] 49895HGV [Catalytic activity/Vol]82 U/PCxfksz45-025OzlEptcvwWadley Regional Medical CenterComment on above:Performed By: #### CBCA, 43120-0, BMP, 87750-1, 23327- 7, THYR, 48555-7 #### [facility] ([id number]) [address] [place] [address] 98595SLW [Catalytic activity/Vol]35 U/LHigh0-31PWayne HealthCare Main CampusComment on above:Performed By: #### RAMAKRISHNA, 78813-7, BMP, 13253-5, 35518- 7, THYR, 03680-1 #### [facility] ([id number]) [address] [place] [address] 74160Stwlq gap [Moles/Vol]9 mmol/LNormal5-15ProWadley Regional Medical CenterComment on above:Performed By: #### RAMAKRISHNA, 12615-2, BMP, 27297-5, 19834- 7, THYR, 14874-5 #### [facility] ([id number]) [address] [place] [address] 02130HGU [Catalytic activity/Vol]27 U/LNormal0-41ProMedica Defiance Regional HospitalComment on above:Performed By: #### RAMAKRISHNA, 93377-5, BMP, 43799-8, 18302- 7, THYR, 19775-5 #### [facility] ([id number]) [address] [place] [address] 66856Whzmmuzpd [Mass/Vol]0.4 mg/dLNormal0.3-1.2PWayne HealthCare Main CampusComment on above:Performed By: #### RAMAKRISHNA, 78752-0, BMP, 14886-5, 23391- 7, THYR, 95619-9 #### [facility] ([id number]) [address] [place] [address] 97781Xlqxmmg [Mass/Vol]9.2 mg/dLNormal8.5-10.5PWayne HealthCare Main CampusComment on above:Performed By: #### ARIANA, 12134-9, BMP, 69828-1, 04912- 7, THYR, 01793-3 #### [facility] ([id number]) [address] [place] [address] 33148Jeaykwug [Moles/Vol]101 mmol/NPkbxcd25-219PshWrpggyProMedica Defiance Regional HospitalComment on above:Performed By: #### RAMAKRISHNA, 88427-0, BMP, 22235-3, 40666- 7, THYR, 36175-3 #### [facility] ([id number]) [address] [place] [address] 70850TK2 [Moles/Vol]26 mmol/HZfcijh44-01GtyAldukmWayne HealthCare Main Campus Comment on above:Performed By: #### RAMAKRISHNA, 92089-0, BMP, 19592-7, 23125-0, THYR, 56958-0 #### [facility] ([id number]) [address] [place] [address] 39854Ljudzpbpgc [Mass/Vol]1.06 mg/dLHigh0.40-1.00ProMedica Defiance Regional HospitalComment on above:Result Comment: METHOD TRACEABLE TO IDMS STANDARD Performed By: #### RAMAKRISHNA, 45623-6, BMP, 43542-9, 23781-4, THYR, 45201-7 #### [facility] ([id number]) [address] [place] [address] 50247PAD/1.73 sq M.predicted among non-blacks MDRD (S/P/Bld) [Vol rate/Area]66 mL/min/{1.73_m2}Normal>59ProMedica Defiance Regional HospitalComment on above:Result Comment: Reported eGFR is based on the CKD-EPI 2020 equation that does not use a race coefficient.Performed By: #### RAMAKRISHNA, 92104-7, BMP, 48090-1, 28691-1, THYR, 80140-9 #### [facility] ([id number]) [address] [place] [address] 44590Bmevgzo [Mass/Vol]148 mg/hEGysi59-99MgsQdsneuProMedica Defiance Regional Hospital Comment on above:Performed By: #### RAMAKRISHNA, 74291-4, BMP, 24325-8, 18531-7, THYR, 88826-2 #### [facility] ([id number]) [address] [place] [address], [place] [address]Evzrpbbpa [Moles/Vol]3.6 mmol/LNormal3.5-5.0ProWadley Regional Medical CenterComment on above:Performed By: #### RAMAKRISHNA, 35650-0, BMP, 26236-1, 48988- 7, THYR, 98725-0 #### [facility] ([id number]) [address] [place] [address] 48713Ocbnyyz [Mass/Vol]7.7 g/dLNormal6.0-8.0ProWadley Regional Medical CenterComment on above:Performed By: #### RAMAKRISHNA, 45967-5, BMP, 65267-4, 19557- 7, THYR, 83567-5 #### [facility] ([id number]) [address] [place] [address], [place] [address]Zlghpd [Moles/Vol]136 mmol/UGzpnhu577-582HqvAfkcdd [facility]ont HospitalComment on above:Performed By: #### RAMAKRISHNA, 02939-4, BMP, 51005-3, 57007- 7, THYR, 50866-5 #### [facility] ([id number]) [address] [place] [address], [place] [address]Hynh nitrogen [Mass/Vol]28 mg/dLHigh5-23ProWadley Regional Medical CenterComment on above:Performed By: #### RAMAKRISHNA, 68108-8, BMP, 66518-3, 56167- 7, THYR, 60307-0 #### [facility] ([id number]) [address] [place] [address], [place] [address]HFPUBZam 39-64-8677Bdysxx [Catalytic activity/Vol]24 U/LNormal 17-40ProWadley Regional Medical CenterComment on above:Performed By: #### RAMAKRISHNA, 06213- 5, BMP, 04792-6, 93786-0, THYR, 64018-8 #### [facility] ([id number]) [address] [place] [address] 35746ZML MACROSCOPIC NURon 69-07-3986ATLLLGROA NURNegativeNormalNEG [facility] HospitalComment on above:Performed By: #### RAMAKRISHNA, 77349-3, BMP, 30936-2, 69958-3, THYR, 21837-9 #### [facility] ([id number]) [address] [place] [address] 54493GKALQ/HGB NURTraceAbnormalNEGProMedica Defiance Regional HospitalComment on above:Performed By: #### RAMAKRISHNA, 50127-9, BMP, 35408-6, 35386-0, THYR, 76075-7 #### [facility] ([id number]) [address] [place] [address] [place] [address]DJKHJEN SMITHA>=1000AbnormalNEGProMedica Defiance Regional HospitalComment on above:Performed By: #### RAMAKRISHNA, 41926-5, BMP, 85389-4, 37771-5, THYR, 18376-7 #### [facility] ([id number]) [address] [place] [address] [place] [address]VGBVZKH NURNegativeNormalNEGProWadley Regional Medical CenterComment on above:Performed By: #### RAMAKRISHNA, 98183-4, BMP, 28410-5, 64833-3, THYR, 01740-8 #### [facility] ([id number]) [address] [place] [address] [place] [address]RDNRBECKJ ESTERASE NURNegativeNormalNEGProMedica Defiance Regional HospitalComment on above:Performed By: #### CBCA, 03862-2, BMP, 33577-7, 10931- 7, THYR, 14640-3 #### [facility] ([id number]) [address] [place] [address] 48767CQMESFG NURNegativeNormalNEGProMedica Defiance Regional HospitalComment on above:Performed By: #### CBCA, 63311-6, BMP, 04315-0, 29030-4, THYR, 48278-3 #### [facility] ([id number]) [address] [place] [address] 68918CW NUR5.3Rmqlte3.0-8.5PWayne HealthCare Main CampusComment on above:Performed By: #### CBCA, 70453-3, BMP, 33233-7, 87471-1, THYR, 13217-9 #### [facility] ([id number]) [address] [place] [address] [place] [address]TWKPQQV NURNegativeNormalNEGProWadley Regional Medical CenterComment on above:Performed By: #### CBCA, 02391-9, BMP, 89597-8, 34515-9, THYR, 85777-1 #### [facility] ([id number]) [address] [place] [address] 16599THQXIGAU GRAVITY NUR1.403Rapmdg9.003-1.035ProWadley Regional Medical CenterComment on above:Performed By: #### CBCA, 32342-5, BMP, 57260-7, 32171- 7, THYR, 96200-2 #### [facility] ([id number]) [address] [place] [address] 69548VVUKGHUXYXVP NUR0.2 eu/dLNormal<1.1PWayne HealthCare Main Campus Comment on above:Performed By: #### CBCA, 93481-3, BMP, 50195-1, 14371-0, THYR, 67761-2 #### [facility] ([id number]) [address] [place] [address] 21108SYDRZZ BLOOD GASon 55-72-6592BJROG'S TESTNormalProWadley Regional Medical CenterComment on above:Performed By: #### CBCA, 79164-1, BMP, 32987-1, 38441-7, THYR, 02516-5 #### [facility] ([id number]) [address] [place] [address] 45478Srxa excess Calc (Bld) [Moles/Vol]2.0 mmol/LNormal0.0-2.0 ProMMission Community HospitalComment on above:Performed By: #### CBCDesire, 81994-4, BMP, 01558-1, 84990-6, THYR, 27482-8 #### [facility] ([id number]) [address] [place] [address] 53410Vmvo cdhhhixwfhc14.6 [degF]Zdwzrv72.0[facility] Comment on above:Performed By: #### CBCA, 41128-7, BMP, 42336-1, 02371-1, THYR, 04448-9 #### [facility] ([id number]) [address] [place] [address] 64416ZHP9 (Bld) [Moles/Vol]27.7 mmol/LHigh20.0-24.0ProMed[facility] Regional HospitalComment on above:Performed By: #### CBCA, 33867-7, BMP, 98836-6, 51798- 7, THYR, 02086-2 #### [facility] ([id number]) [address] [place] [address] 37311Pdlizz saturation in Blood48.0 %Low>80.0ProWadley Regional Medical CenterComment on above:Performed By: #### CBCA, 33236-5, BMP, 03756-8, 42398- 7, THYR, 09683-2 #### [facility] ([id number]) [address] [place] [address], [place] [address]ZTGBEP SOURCERoomAirNormalProMedica Defiance Regional HospitalComment on above:Performed By: #### CBCA, 84082-3, BMP, 95799-9, 99507-8, THYR, 05021-1 #### [facility] ([id number]) [address] [place] [address], [place] [address]MHM5, MVKGWE60.1 EZXOXbwtgx68-38KpfJgfjmvProMedica Defiance Regional Hospital Comment on above:Performed By: #### CBCA, 45720-4, BMP, 39053-6, 69759-2, THYR, 65969-9 #### [facility] ([id number]) [address] [place] [address], [place] [address]NF, VENOUS7.012Fgcwre4.320-7.420ProW[facility] Comment on above:Performed By: #### CBCA, 96617-3, BMP, 97088-5, 76806-7, THYR, 79276-4 #### [facility] ([id number]) [address] [place] [address], [place] [address]MU9, MLDNTO91 KZNDNnt25-44KtxYivafgProMedica Defiance Regional HospitalComment on above:Performed By: #### ARIANA, 79720-3, BMP, 11273-2, 90790-9, THYR, 09354-9 #### [facility] ([id number]) [address] [place] [address], [place] [address]SVXACJ SITEN/ANormalProMedica Defiance Regional HospitalComment on above: Performed By: #### CBCA, 39780-0, BMP, 12437-5, 05039-4, THYR, 22977-5 #### [facility] ([id number]) [address] [place] [address], [place] [address]GKACNM TYPEVENOUSNormalProMedica Defiance Regional HospitalComment on above:Performed By: #### CBCA, 14166-9, BMP, 21522-3, 77567-6, THYR, 64641-0 #### [facility] ([id number]) [address] [place] [address], [place], [place] [address]Akxpekdr Pathologyon 91-77-4416Ejpcgpau PathologyNormal [facility] HospitalComment on above:Result Comment: [facility] [address] [place] [address] Surgical Pathology Consultation Patient Name:CARISSA SANTOS:1980 (Age: 44)Gender:FTaken:09/12/2024Reported:09/17/2024Physician(s):Aliya Solorzano D.O. ([phone])Copy To: Rec. #:[id number]: #[id number] Final Pathologic Diagnosis Hepatic flexure polyp, biopsies: Fecal material, nondiagnostic. No colonic tissue present. Report Electronically Signed Out ssi/09/17/2024Surufina Lara M.D. Interpretation performed at [facility], [address] [place] [address], License number: [id number]. Clinical History Screening Gross Description Received in formalin labeled adam SANTOS are pale-mims soft tissue fragments admixed with friable bits two material, 0.5 x 0.2 x 0.1 cm in aggregate. The specimen is filtered and entirely submitted in a single cassette. (1, ns, [id number],m4) DM. dm/09/13/2024WAK Specimen(s) Received Hepatic flexure polyp Fee Codes(s): 1; 72599IHL,APTIMA HPV,AGE GDLNon 47-25-5563OCY GDLN ACOG TESTINGNote.NOMS HealthcareComment on above:TESTS RESULT FLAG UNITS REF RANGE LAB Clinician Provided Cytology Information Source.............Cervix;Endocervix No. of containers..01 ThinPrep Vial Age Elizabeth VALDIVIA Keyla... FLAG LEGEND: L-Low Normal,H-High Normal,LL-Alert Low,HH-Alert High <-Panic Low,>-Panic High,A-Abnormal,AA-Critical Abnormal Performed at: [address] [address] Caroline Moore MD, HPV APTIMANegativeNegativeNOMS HealthcareComment on above:This nucleic acid amplification test detects fourteen high- risk HPV types (16,18,31,33,35,39,45,51,52,56,58,59,66,68) without differentiation. Performed at: =49 [address] [id number] [employer]: Caroline Moore MD, Phone: [phone] Performed at: - [address] [id number] [employer]: Caroline Moore MD, Phone: [phone] IGP, APTIMA HPV, RFX 16/18,45Note.NOMS HealthcareComment on above:TESTS RESULT FLAG UNITS REF RANGE LAB DIAGNOSIS: 02 NEGATIVE FOR INTRAEPITHELIAL LESION OR MALIGNANCY. Specimen adequacy: 02 Satisfactory for evaluation. Endocervical and/or squamous metaplastic cells (endocervical component) are present. Performed by: 02 Steve Saravia, Service Observer (ASCP) . 02 Note: Note 02 The [...] High,A-Abnormal,AA-Critical Abnormal Performed at: 02 [facility] [address] [place] [address] Caroline Moore MD, BRUSH-SPATULA CERVIX ENDOCERVIX CLINISYNCNOMS HealthcareBASIC METABOLIC PANLon 69-34-2635Kumki gap [Moles/Vol]8 mmol/LNormal5-15Pro[facility] HospitalComment on above:Performed By: #### CBCA, 45220-6, BMP, 60712-4, 98167-2, THYR, 42037-9 #### [facility] ([id number]) [address] [place] [address], FIRST FLOOR [place], [place] [address]Oeleozi [Mass/Vol]9.9 mg/dLNormal8.5-10.5PWayne HealthCare Main CampusComment on above:Performed By: #### RAMAKRISHNA, 64422-5, BMP, 22460-9, 89070- 7, THYR, 83614-4 #### [facility] ([id number]) [address] [place] [address] 85343Hawgrwin [Moles/Vol]92 mmol/XIsa79-858CysOhwdprWadley Regional Medical CenterComment on above:Performed By: #### RAMAKRISHNA, 23836-9, BMP, 54558-9, 11084- 7, THYR, 05726-3 #### [facility] ([id number]) [address] [place] [address] 10311ZJ4 [Moles/Vol]32 mmol/SLnwpzp16-41HisSqxoiwWayne HealthCare Main Campus Comment on above:Performed By: #### RAMAKRISHNA, 46356-7, BMP, 26614-2, 92300-0, THYR, 97437-8 #### [facility] ([id number]) [address] [place] [address] 30006Ndhbrbwlpy [Mass/Vol]0.94 mg/dLNormal0.40-1.00ProWadley Regional Medical CenterComment on above:Result Comment: METHOD TRACEABLE TO IDMS STANDARD Performed By: #### RAMAKRISHNA, 07033-5, BMP, 49015-2, 22709-1, THYR, 19577-4 #### [facility] ([id number]) [address] [place] [address] 57650RMO/1.73 sq M.predicted among non-blacks MDRD (S/P/Bld) [Vol rate/Area]76 mL/min/{1.73_m2}Normal>59ProWadley Regional Medical CenterComment on above:Result Comment: Reported eGFR is based on the CKD-EPI 2020 equation that does not use a race coefficient.Performed By: #### RAMAKRISHNA, 09299-8, BMP, 79253-2, 93252-9, THYR, 46871-5 #### [facility] ([id number]) [address] [place] [address], [place] [address]Ralqxlu [Mass/Vol]577 mg/dLCritically odvc48-71GjuRiwvqhWadley Regional Medical CenterComment on above:Performed By: #### CBCA, 74660-9, BMP, 97346-5, 12885-8, THYR, 08721-6 #### [facility] ([id number]) [address] [place] [address] 64360Vtxlwukpx [Moles/Vol]4.7 mmol/LNormal3.5-5.0ProWadley Regional Medical CenterComment on above:Performed By: #### CBCDesire, 76902-0, BMP, 85302-7, 47932- 7, THYR, 63468-2 #### [facility] ([id number]) [address] [place] [address] 89702Xeltec [Moles/Vol]132 mmol/JFtu948-325JmjJmlprrWadley Regional Medical CenterComment on above:Performed By: #### CBCDesire, 49678-0, BMP, 40725-8, 28603- 7, THYR, 92823-5 #### [facility] ([id number]) [address] [place] [address] 71041Lqld nitrogen [Mass/Vol]25 mg/dLHigh5-23ProWadley Regional Medical CenterComment on above:Performed By: #### CBCA, 49658-2, BMP, 85226-9, 07721- 7, THYR, 56939-0 #### [facility] ([id number]) [address] [place] [address] 59793BQW AND AUTO DIFFon 28-37-1279WFKGEPXQ BASOPHIL0.0 X10E9/L Normal0.0-0.2ProMedSequoia HospitalComment on above:Performed By: #### CBCA, 64460-9, BMP, 45225-2, 05770-5, THYR, 80551-7 #### [facility] ([id number]) [address] [place] [address] 59674OBDFNOZK NEUTROPHIL7.2 X10E9/LHigh1.5-6.6ProMedica Defiance Regional HospitalComment on above:Performed By: #### CBCA, 53528-0, BMP, 14841-2, 53523- 7, THYR, 89095-7 #### [facility] ([id number]) [address] [place] [address] 43852Cvceljunt/100 WBC (Bld)0.2 %NormalProMedica Defiance Regional Hospital Comment on above:Performed By: #### CBCA, 57195-9, BMP, 35474-4, 94960-3, THYR, 52072-4 #### [facility] ([id number]) [address] [place] [address] 88916Pygkvhcnyfq (Bld) [#/Vol]0.0 10*3/uLNormal0.0-0.4ProMedica Defiance Regional HospitalComment on above:Performed By: #### CBCA, 55286-0, BMP, 19496-1, 41173-9, THYR, 59223-6 #### [facility] ([id number]) [address] [place] [address] 86125Jxopuxlnxvv/100 WBC (Bld)0.2 %NormalProMedica Defiance Regional Hospital Comment on above:Performed By: #### CBCA, 32509-1, BMP, 48120-0, 19233-5, THYR, 86005-6 #### [facility] ([id number]) [address] [place] [address] 64112Iilfziqdsyk distribution width (RBC) [Ratio]13.5 %Normal 11.5-15.0ProWadley Regional Medical CenterComment on above:Performed By: #### CBCA, 86046-3, BMP, 50933-7, 95931-3, THYR, 24624-2 #### [facility] ([id number]) [address] [place] [address] 17396Cqzjndzlfi (Bld) [Volume fraction]33.7 %Rab73-41NxkSusocqProMedica Defiance Regional HospitalComment on above:Performed By: #### CBCA, 84313-4, BMP, 14091-1, 30874-1, THYR, 88958-7 #### [facility] ([id number]) [address] [place] [address] 15721Ukbocnuxnm (Bld) [Mass/Vol]11.1 g/dLLow11.7-15.5PWayne HealthCare Main CampusComment on above:Performed By: #### CBCA, 19955-8, BMP, 59774-4, 02333-2, THYR, 55874-2 #### [facility] ([id number]) [address] [place] [address] 80972Ehadiwstqbh (Bld) [#/Vol]2.2 10*3/uLNormal1.0-3.5PWayne HealthCare Main CampusComment on above:Performed By: #### CBCA, 87714-7, BMP, 76729-2, 83054-4, THYR, 97865-1 #### [facility] ([id number]) [address] [place] [address] 35888Bwzmqvjlfwg/100 WBC (Bld)21.9 %NormalProWadley Regional Medical Center Comment on above:Performed By: #### CBCA, 79294-1, BMP, 08613-5, 11467-2, THYR, 64245-5 #### [facility] ([id number]) [address] [place] [address] 94360SUZ (RBC) [Entitic mass]28.7 ynTsqrdp29-83PyyTachjaWadley Regional Medical CenterComment on above:Performed By: #### CBCA, 11748-9, BMP, 30440-4, 17971- 7, THYR, 39312-2 #### [facility] ([id number]) [address] [place] [address] 78551DNTA (RBC) [Mass/Vol]32.9 g/mDHrudwt48-64AnyZzknnuProMedica Defiance Regional HospitalComment on above:Performed By: #### CBCA, 84798-3, BMP, 64897-3, 02520- 7, THYR, 25345-3 #### [facility] ([id number]) [address] [place] [address] 30010PFW (RBC) [Entitic vol]87 lZMloxtr10-678CcnFxmkfnProMedica Defiance Regional HospitalComment on above:Performed By: #### CBCA, 39226-8, BMP, 28166-9, 64488- 7, THYR, 19772-9 #### [facility] ([id number]) [address] [place] [address] 69893Dsylmtvzt (Bld) [#/Vol]0.5 10*3/uLNormal0-0.9ProMedica Defiance Regional HospitalComment on above:Performed By: #### CBCA, 76725-1, BMP, 59646-0, 92647- 7, THYR, 49172-6 #### [facility] ([id number]) [address] [place] [address] 34273Xctzeyrmc/100 WBC (Bld)5.4 %NormalProMedica Defiance Regional Hospital Comment on above:Performed By: #### CBCA, 47588-0, BMP, 66312-9, 31027-5, THYR, 45056-5 #### [facility] ([id number]) [address] [place] [address] 02220Iptcjabunel/100 WBC (Bld)72.3 %NormalProMedica Defiance Regional Hospital Comment on above:Performed By: #### CBCA, 57636-2, BMP, 04932-7, 23394-3, THYR, 11367-7 #### [facility] ([id number]) [address] [place] [address] 37828Hwyqwlsb mean volume (Bld) [Entitic vol]7.4 fLNormal7-12 ProMMission Community HospitalComment on above:Performed By: #### CBCA, 26459-0, BMP, 41447-3, 13510-8, THYR, 33652-7 #### [facility] ([id number]) [address] [place] [address] 36696Hbanbnphu (Bld) [#/Vol]190 10*3/yIXpzdbw615-218CetMmvspk [facility]remont HospitalComment on above:Performed By: #### CBCA, 22043-8, BMP, 70676-0, 89477-9, THYR, 46150-0 #### [facility] ([id number]) [address] [place] [address] 47977HYS COUNT3.86 X10E12/LNormal3.80-5.20[facility] Comment on above:Performed By: #### CBCA, 91138-8, BMP, 74166-6, 86271-9, THYR, 82695-1 #### [facility] ([id number]) [address] [place] [address] 11253HMR (Bld) [#/Vol]10.0 10*3/uLNormal4.0-11.0ProMedica [facility] Regional HospitalComment on above:Performed By: #### CBCA, 91319-8, BMP, 36501-8, 64094- 7, THYR, 81545-9 #### [facility] ([id number]) [address] [place] [address] 48238NXXAIUVBBEXWK METABOLIC PANELon 62-68-2729Ruwkfhd [Mass/Vol]3.3 g/dLNormal3.2-5.3PWayne HealthCare Main CampusComment on above:Performed By: #### ARIANA, 25432-8, BMP, 42749-7, 43084-6, THYR, 45098-7 #### [facility] ([id number]) [address] [place] [address], [place] [address]DMZ [Catalytic activity/Vol]66 U/UQxhbbd62-521NdlZpwercWadley Regional Medical CenterComment on above:Performed By: #### RAMAKRISHNA, 87722-7, BMP, 66205-4, 60879- 7, THYR, 60972-8 #### [facility] ([id number]) [address] [place] [address], [place] [address]PXZ [Catalytic activity/Vol]16 U/LNormal0-31PWayne HealthCare Main CampusComment on above:Performed By: #### RAMAKRISHNA, 66480-5, BMP, 50959-7, 56663- 7, THYR, 03565-8 #### [facility] ([id number]) [address] [place] [address], [place] [address]Semfb gap [Moles/Vol]9 mmol/LNormal5-15ProWadley Regional Medical CenterComment on above:Performed By: #### RAMAKRISHNA, 24973-1, BMP, 61330-8, 91067- 7, THYR, 72198-3 #### [facility] ([id number]) [address] [place] [address], [place] [address]VLH [Catalytic activity/Vol]11 U/LNormal0-41ProWadley Regional Medical CenterComment on above:Performed By: #### ARIANA, 82552-5, BMP, 93845-8, 64729- 7, THYR, 38579-1 #### [facility] ([id number]) [address] [place] [address], [place] [address]Ijrskvbuq [Mass/Vol]0.3 mg/dLNormal0.3-1.2PWayne HealthCare Main CampusComment on above:Performed By: #### RAMAKRISHNA, 96808-2, BMP, 52635-1, 85842- 7, THYR, 51986-0 #### [facility] ([id number]) [address] [place] [address], [place] [address]Ghpvxsi [Mass/Vol]8.5 mg/dLNormal8.5-10.5PWayne HealthCare Main CampusComment on above:Performed By: #### RAMAKRISHNA, 70673-6, BMP, 87989-6, 38945- 7, THYR, 77103-7 #### [facility] ([id number]) [address] [place] [address], [place] [address]Frnhkeov [Moles/Vol]100 mmol/DXyzcfr87-105HryZpudswWadley Regional Medical CenterComment on above:Performed By: #### RAMAKRISHNA, 04877-7, BMP, 08275-2, 54928- 7, THYR, 14083-3 #### [facility] ([id number]) [address] [place] [address], [place] [address]ZJ8 [Moles/Vol]24 mmol/KYoypww46-42MpsXouzkwWayne HealthCare Main Campus Comment on above:Performed By: #### RAMAKRISHNA, 49561-5, BMP, 32691-9, 02350-8, THYR, 07942-1 #### [facility] ([id number]) [address] [place] [address], [place] [address]Prrqnmmuvb [Mass/Vol]1.13 mg/dLHigh0.40-1.00ProMedica Defiance Regional HospitalComment on above:Result Comment: METHOD TRACEABLE TO IDMS STANDARD Performed By: #### RAMAKRISHNA, 69196-9, BMP, 42284-2, 83576-2, THYR, 91560-8 #### [facility] ([id number]) [address] [place] [address] 95662YID/1.73 sq M.predicted among non-blacks MDRD (S/P/Bld) [Vol rate/Area]61 mL/min/{1.73_m2}Normal>59ProWadley Regional Medical CenterComment on above:Result Comment: Reported eGFR is based on the CKD-EPI 1 equation that does not use a race coefficient.Performed By: #### RAMAKRISHNA, 50658-9, BMP, 24439-5, 04091-5, THYR, 39905-5 #### [facility] ([id number]) [address] [place] [address] 56253Kekdxry [Mass/Vol]307 mg/pHXkvb27-83NhqZwctpnProMedica Defiance Regional Hospital Comment on above:Performed By: #### RAMAKRISHNA, 27341-9, BMP, 69861-7, 25198-4, THYR, 77316-0 #### [facility] ([id number]) [address] [place] [address] 89149Sneikbhvm [Moles/Vol]4.2 mmol/LNormal3.5-5.0ProWadley Regional Medical CenterComment on above:Performed By: #### RAMAKRISHNA, 58222-8, BMP, 02007-8, 46411- 7, THYR, 40052-1 #### [facility] ([id number]) [address] [place] [address] 57318Atnlttk [Mass/Vol]6.0 g/dLNormal6.0-8.0ProMedica Defiance Regional HospitalComment on above:Performed By: #### RAMAKRISHNA, 15542-6, BMP, 89054-9, 00240- 7, THYR, 27698-9 #### [facility] ([id number]) [address] [place] [address] 36456Jvtwvb [Moles/Vol]133 mmol/ROmp460-972DzcFmgqoaWadley Regional Medical CenterComment on above:Performed By: #### RAMAKRISHNA, 27265-4, BMP, 45631-1, 87299- 7, THYR, 82139-0 #### [facility] ([id number]) [address] [place] [address], [place] [address]Gjel nitrogen [Mass/Vol]42 mg/dLHigh5-23ProWadley Regional Medical CenterComment on above:Performed By: #### RAMAKRISHNA, 53857-4, BMP, 88043-8, 07277- 7, THYR, 92564-1 #### [facility] ([id number]) [address] [place] [address] 12708Nrasgxu Glucometer (BldC) [Mass/Vol]on 27-61-5111Mtznqne [Mass/Vol]169 mg/aLEybf44-31CzxTeeiydWadley Regional Medical CenterGlucose [Mass/Vol]260 mg/gKVsoj09-95PrfBxsygqWadley Regional Medical CenterMAGNESIUMon 74-44-1272Lxjetdehs [Mass/Vol]2.2 mg/dLNormal1.8-2.6ProMedica Defiance Regional HospitalComment on above: Performed By: #### RAMAKRISHNA, 16228-7, BMP, , 11400-9, THYR, 95072-3 #### [facility] ([id number]) [address] [place] [address] 92382Plwbunyzgpbup IA [Mass/Vol]on 11-09-4009YMACRNEXGOKJA9.20 ng/mL High<0.05ProMedica Defiance Regional HospitalComment on above:Result Comment: NOTE <0.50 ng/mL - Low risk of severe sepsis and/or septic shock. <2.00 ng/mL - Recommend retesting within 6-24 hours. >2.00 ng/mL - High risk of sepsis and/or septic shock.Performed By: #### RAMAKRISHNA, 53239-3, BMP, 83683-2, 17053-9, THYR, 96188-6 #### [facility] ([id number]) [address] [place] [address] 52223NOT AND AUTO DIFFon 78-17-0708WXBHRVBD BASOPHIL0.0 X10E9/L Normal0.0-0.2PWayne HealthCare Main CampusComment on above:Performed By: #### RAMAKRISHNA, 87431-1, BMP, 04451-2, 01314-6, THYR, 94160-5 #### [facility] ([id number]) [address] [place] [address] 82834FWMXYQPF NEUTROPHIL7.1 X10E9/LHigh1.5-6.6ProMedica Defiance Regional HospitalComment on above:Performed By: #### CBCA, 12297-9, BMP, 36044-4, 46990- 7, THYR, 66936-1 #### [facility] ([id number]) [address] [place] [address] 60816Gksqvfqhv/100 WBC (Bld)0.1 %NormalProMedica Defiance Regional Hospital Comment on above:Performed By: #### CBCA, 05246-5, BMP, 53751-2, 31556-0, THYR, 01972-8 #### [facility] ([id number]) [address] [place] [address] 47586Zfdogflexkr (Bld) [#/Vol]0.0 10*3/uLNormal0.0-0.4ProMedica Defiance Regional HospitalComment on above:Performed By: #### CBCA, 80999-7, BMP, 63892-9, 42647-2, THYR, 25876-9 #### [facility] ([id number]) [address] [place] [address] 37551Ovqwtkiemxj/100 WBC (Bld)0.0 %NormalProMedica Defiance Regional Hospital Comment on above:Performed By: #### CBCA, 38924-3, BMP, 93772-0, 69188-9, THYR, 29472-0 #### [facility] ([id number]) [address] [place] [address] 48233Masarkfsewm distribution width (RBC) [Ratio]13.2 %Normal 11.5-15.0ProWadley Regional Medical CenterComment on above:Performed By: #### CBCA, 79568-9, BMP, 09928-9, 72832-6, THYR, 17813-9 #### [facility] ([id number]) [address] [place] [address] 25547Ewglbsrcfr (Bld) [Volume fraction]37.6 %Prtjnv66-98GgcHchaqaWadley Regional Medical CenterComment on above:Performed By: #### CBCA, 16430-1, BMP, 28795-5, 46235-6, THYR, 96067-6 #### [facility] ([id number]) [address] [place] [address] 78998Wocmpfthtb (Bld) [Mass/Vol]12.4 g/wTBnyfjf35.7-15.5PWayne HealthCare Main CampusComment on above:Performed By: #### CBCDesire, 14039-3, BMP, 32432-3, 31845-1, THYR, 50731-8 #### [facility] ([id number]) [address] [place] [address] 32927Gciydeazzmf (Bld) [#/Vol]0.5 10*3/uLLow1.0-3.5PWayne HealthCare Main CampusComment on above:Performed By: #### CBCA, 52521-6, BMP, 43802-3, 69187- 7, THYR, 68495-7 #### [facility] ([id number]) [address] [place] [address] 45101Lpihsubnvvb/100 WBC (Bld)6.8 %NormalProMedica Defiance Regional Hospital Comment on above:Performed By: #### CBCA, 95213-1, BMP, 91569-0, 96819-5, THYR, 15593-8 #### [facility] ([id number]) [address] [place] [address] 43956JUE (RBC) [Entitic mass]28.9 yaSxhfxa49-17MzaVbwajjProMedica Defiance Regional HospitalComment on above:Performed By: #### CBCA, 57897-2, BMP, 54216-4, 13523- 7, THYR, 32751-5 #### [facility] ([id number]) [address] [place] [address] 46128CYFV (RBC) [Mass/Vol]33.1 g/xGNdcsfc56-34KutTpsoiuProMedica Defiance Regional HospitalComment on above:Performed By: #### CBCA, 29158-3, BMP, 28826-6, 75126- 7, THYR, 93654-9 #### [facility] ([id number]) [address] [place] [address] 44530UPV (RBC) [Entitic vol]87 uLNcznmt43-033DjeDjxgxwProMedica Defiance Regional HospitalComment on above:Performed By: #### CBCA, 88392-3, BMP, 88152-2, 03055- 7, THYR, 84371-0 #### [facility] ([id number]) [address] [place] [address] 01053Husgyqvld (Bld) [#/Vol]0.1 10*3/uLNormal0-0.9ProMedica Defiance Regional HospitalComment on above:Performed By: #### CBCA, 63266-1, BMP, 77531-8, 06920- 7, THYR, 47202-1 #### [facility] ([id number]) [address] [place] [address] 86148Wfizunxuo/100 WBC (Bld)0.8 %NormalProMedica Defiance Regional Hospital Comment on above:Performed By: #### CBCA, 77655-9, BMP, 70282-5, 38395-1, THYR, 30742-2 #### [facility] ([id number]) [address] [place] [address] 32636Wfapoaqybtj/100 WBC (Bld)92.3 %NormalProMedica Defiance Regional Hospital Comment on above:Performed By: #### CBCA, 63473-9, BMP, 57668-5, 19224-8, THYR, 36880-7 #### [facility] ([id number]) [address] [place] [address] 52225Jzdxggsx mean volume (Bld) [Entitic vol]7.5 fLNormal7-12 ProMMission Community HospitalComment on above:Performed By: #### CBCA, 87675-3, BMP, 67977-0, 67583-4, THYR, 74567-5 #### [facility] ([id number]) [address] [place] [address] 86707Hrguqjaxt (Bld) [#/Vol]171 10*3/iXEafqbv870-802IqxEbexdx [facility] HospitalComment on above:Performed By: #### CBCA, 64362-0, BMP, 75721-4, 92620-1, THYR, 20109-3 #### [facility] ([id number]) [address] [place] [address] 06490QTK COUNT4.31 X10E12/LNormal3.80-5.20[facility] Comment on above:Performed By: #### CBCA, 04925-2, BMP, 22787-0, 38042-4, THYR, 82964-6 #### [facility] ([id number]) [address] [place] [address] 56339WCH (Bld) [#/Vol]7.7 10*3/uLNormal4.0-11.0ProWadley Regional Medical CenterComment on above:Performed By: #### CBCA, 81036-1, BMP, 15139-8, 42168- 7, THYR, 74822-6 #### [facility] ([id number]) [address] [place] [address] 28978NCEAPPSEGRVXV METABOLIC PANELon 38-09-3613Rnwfruc [Mass/Vol]3.5 g/dLNormal3.2-5.3PWayne HealthCare Main CampusComment on above:Performed By: #### ARIANA, 48189-7, BMP, 74465-9, 07636-4, THYR, 22781-7 #### [facility] ([id number]) [address] [place] [address], [place] [address]MZW [Catalytic activity/Vol]80 U/APerqtx49-929GrbWbauigWadley Regional Medical CenterComment on above:Performed By: #### RAMAKRISHNA, 63333-7, BMP, 05273-1, 45486- 7, THYR, 31317-6 #### [facility] ([id number]) [address] [place] [address] 14989JLC [Catalytic activity/Vol]U/LNormal0-31PWayne HealthCare Main CampusComment on above:Performed By: #### RAMAKRISHNA, 29317-8, BMP, 83673-9, 82760- 7, THYR, 56179-7 #### [facility] ([id number]) [address] [place] [address] 81724Wpyjp gap [Moles/Vol]16 mmol/LHigh5-15ProWadley Regional Medical CenterComment on above:Performed By: #### RAMAKRISHNA, 57083-0, BMP, 27533-5, 17643- 7, THYR, 67923-3 #### [facility] ([id number]) [address] [place] [address] 66477EDD [Catalytic activity/Vol]26 U/LNormal0-41ProWadley Regional Medical CenterComment on above:Performed By: #### CBCA, 43365-6, BMP, 81553-2, 83767- 7, THYR, 05090-1 #### [facility] ([id number]) [address] [place] [address], [place] [address]Khppuoigc [Mass/Vol]0.4 mg/dLNormal0.3-1.2PWayne HealthCare Main CampusComment on above:Performed By: #### RAMAKRISHNA, 91346-8, BMP, 40930-0, 28265- 7, THYR, 99022-5 #### [facility] ([id number]) [address] [place] [address] 52596Fnmhmkz [Mass/Vol]8.9 mg/dLNormal8.5-10.5PWayne HealthCare Main CampusComment on above:Performed By: #### RAMAKRISHNA, 22713-8, BMP, 75519-6, 67631- 7, THYR, 87874-8 #### [facility] ([id number]) [address] [place] [address] 84695Qtkpjhle [Moles/Vol]99 mmol/GGfbuve01-081EjeCkyuzwWadley Regional Medical CenterComment on above:Performed By: #### RAMAKRISHNA, 02279-1, BMP, 46147-3, 94852- 7, THYR, 29197-7 #### [facility] ([id number]) [address] [place] [address] 43161ZM4 [Moles/Vol]20 mmol/NLht09-85SmvEpifmzWayne HealthCare Main Campus Comment on above:Performed By: #### RAMAKRISHNA, 54776-5, BMP, 95622-7, 50802-2, THYR, 97167-8 #### [facility] ([id number]) [address] [place] [address] 84530Vrqectbpoy [Mass/Vol]1.14 mg/dLHigh0.40-1.00ProWadley Regional Medical CenterComment on above:Result Comment: METHOD TRACEABLE TO IDMS STANDARD Performed By: #### RAMAKRISHNA, 59093-7, BMP, 20888-5, 44629-1, THYR, 04089-4 #### [facility] ([id number]) [address] [place] [address] 87819OIM/1.73 sq M.predicted among non-blacks MDRD (S/P/Bld) [Vol rate/Area]60 mL/min/{1.73_m2}Normal>59ProWadley Regional Medical CenterComment on above:Result Comment: Reported eGFR is based on the CKD-EPI 2020 equation that does not use a race coefficient.Performed By: #### RAMAKRISHNA, 26446-4, BMP, 09580-0, 38061-0, THYR, 61788-3 #### [facility] ([id number]) [address] [place] [address] 37020Mlfkrml [Mass/Vol]484 mg/dLCritically zhlo30-09BljSqsqpeWadley Regional Medical CenterComment on above:Performed By: #### RAMAKRISHNA, 06416-6, BMP, 88351-5, 76641-2, THYR, 94914-8 #### [facility] ([id number]) [address] [place] [address] 10550Czhaisbls [Moles/Vol]4.1 mmol/LNormal3.5-5.0ProWadley Regional Medical CenterComment on above:Performed By: #### RAMAKRISHNA, 28741-1, BMP, 52930-4, 26108- 7, THYR, 32610-2 #### [facility] ([id number]) [address] [place] [address] 11289Bcazoks [Mass/Vol]6.6 g/dLNormal6.0-8.0ProWadley Regional Medical CenterComment on above:Performed By: #### RAMAKRISHNA, 79672-4, BMP, 97877-8, 39413- 7, THYR, 82366-0 #### [facility] ([id number]) [address] [place] [address] 96235Opgqnp [Moles/Vol]135 mmol/MOumhiu569-440WftNhnqws Fremont HospitalComment on above:Performed By: #### RAMAKRISHNA, 67177-6, BMP, 82650-5, 21991- 7, THYR, 85482-6 #### [facility] ([id number]) [address] [place] [address] 24339Ypre nitrogen [Mass/Vol]28 mg/dLHigh5-23ProMedica Defiance Regional HospitalComment on above:Performed By: #### RAMAKRISHNA, 27041-8, BMP, 21140-1, 32212- 7, THYR, 67148-3 #### [facility] ([id number]) [address] [place] [address] 78298Btppjmk Glucometer (BldC) [Mass/Vol]on 03-28-6342Nawsjer [Mass/Vol]311 mg/fYKpme91-94CjaHtvzoxProMedica Defiance Regional HospitalGlucose [Mass/Vol]339 mg/nJCjuf19-76WuuRmaevrWadley Regional Medical CenterGlucose [Mass/Vol]363 mg/zRFmtu91-20 [facility] HospitalGlucose [Mass/Vol]395 mg/gLJpro72-06LxbWccqnyProMedica Defiance Regional HospitalGlucose [Mass/Vol]488 mg/dLCritically uprm68-39JgmGksuerProMedica Defiance Regional HospitalHGB A1C (GLYCO-HGB)on 68-69-4402Axgzfvy [Mass/Vol]229 mg/dLNormal [facility] Regional HospitalComment on above:Performed By: #### CBCDesire, 30745-3, BMP, 35220-8, 86905-0, THYR, 81833-9 #### [facility] ([id number]) [address] [place] [address] 91818OyL2o (Bld) [Mass fraction]9.6 %High4.4-5.6ProMedica Defiance Regional HospitalComment on above:Result Comment: NOTE ADA Guidelines Result HgbA1c Normal : less than 5.7 % Prediabetes : 5.7 % to 6.4 % Diabetes : > 6.4 % Use with caution in patients with abnormal hemoglobin variants as the half-life of red blood cells and in vivo glycation rates are affected.Performed By: #### RAMAKRISHNA, 03736-4, BMP, 28905-0, 00880-0, THYR, 85431-1 #### [facility] ([id number]) [address] [place] [address] 16836JPRBNNSBVca 98-84-8604Wohxhcwhz [Mass/Vol]1.8 mg/dLNormal 1.8-2.6ProMedica Defiance Regional HospitalComment on above:Performed By: #### RAMAKRISHNA, 93437-8, BMP, 09779-2, 74971-7, THYR, 51239-5 #### [facility] ([id number]) [address] [place] [address], [place] [address]AVWCD METABOLIC PANLon 35-93-3564Myxtf gap [Moles/Vol]10 mmol/L Normal5-15ProWadley Regional Medical CenterComment on above:Performed By: #### RAMAKRISHNA, 95500-4, BMP, 58047-2, 32396-5, THYR, 75529-0 #### [facility] ([id number]) [address] [place] [address], [place] [address]Nmhqedm [Mass/Vol]9.2 mg/dLNormal8.5-10.5Pro[facility] HospitalComment on above:Performed By: #### RAMAKRISHNA, 08576-9, BMP, 02232-9, 30557- 7, THYR, 48169-9 #### [facility] ([id number]) [address] [place] [address], [place] [address]Mtdujhih [Moles/Vol]100 mmol/LCxgioz86-742PhaPvddlbWadley Regional Medical CenterComment on above:Performed By: #### RAMAKRISHNA, 78192-8, BMP, 30976-7, 48150- 7, THYR, 43024-6 #### [facility] ([id number]) [address] [place] [address], [place] [address]CQ8 [Moles/Vol]29 mmol/EAwgwlq46-47EaiRyfjmh [facility] Comment on above:Performed By: #### RAMAKRISHNA, 54515-3, BMP, 95593-8, 74338-7, THYR, 53815-5 #### [facility] ([id number]) [address] [place] [address]8722Ljzjcacdym [Mass/Vol]0.77 mg/dLNormal0.40-1.00ProMedica Defiance Regional HospitalComment on above:Result Comment: METHOD TRACEABLE TO IDMS STANDARD Performed By: #### RAMAKRISHNA, 37308-8, BMP, 20542-3, 03864-4, THYR, 96137-6 #### [facility] ([id number]) [address] [place] [address] 63814lZOL (CKD-EPI) NON-RACE DEPENDENT>90Normal>59ProWadley Regional Medical CenterComment on above:Result Comment: Reported eGFR is based on the CKD-EPI 2020 equation that does not use a race coefficient.Performed By: #### RAMAKRISHNA, 18051-0, BMP, 58971-8, 64538-9, THYR, 38550-4 #### [facility] ([id number]) [address] [place] [address] 05019Rfrhvtl [Mass/Vol]254 mg/dOJpim69-18VbiWdxiwgProMedica Defiance Regional Hospital Comment on above:Performed By: #### RAMAKRISHNA, 33395-5, BMP, 77404-2, 58160-0, THYR, 52680-1 #### [facility] ([id number]) [address] [place] [address] 77606Unygsdkpc [Moles/Vol]4.2 mmol/LNormal3.5-5.0Pro[facility] Defiance Regional HospitalComment on above:Performed By: #### RAMAKRISHNA, 12617-9, BMP, 53931-9, 57717- 7, THYR, 02155-1 #### [facility] ([id number]) [address] [place] [address] 81579Ibcvcp [Moles/Vol]139 mmol/OHkrdzq968-827IjdFqruig [facility] HospitalComment on above:Performed By: #### CBCA, 50926-5, BMP, 91693-7, 92828- 7, THYR, 90455-8 #### [facility] ([id number]) [address] [place] [address] 08692Niwq nitrogen [Mass/Vol]23 mg/dLNormal5-23ProWadley Regional Medical CenterComment on above:Performed By: #### CBCA, 37621-3, BMP, 34467-6, 15309- 7, THYR, 14021-9 #### [facility] ([id number]) [address] [place] [address] 66209RHM AND AUTO DIFFon 83-45-4484ACKVEVOD BASOPHIL0.0 X10E9/L Normal0.0-0.2PWayne HealthCare Main CampusComment on above:Performed By: #### CBCDesire, 03015-3, BMP, 73833-1, 81369-0, THYR, 13891-6 #### [facility] ([id number]) [address] [place] [address] 71182FWLZXGES NEUTROPHIL2.7 X10E9/LNormal1.5-6.6ProWadley Regional Medical CenterComment on above:Performed By: #### CBCA, 61891-9, BMP, 27690-6, 57882- 7, THYR, 50814-0 #### [facility] ([id number]) [address] [place] [address] 71156Dpyrfwlyc/100 WBC (Bld)0.7 %NormalProMedica Defiance Regional Hospital Comment on above:Performed By: #### CBCA, 72479-9, BMP, 99388-9, 62134-4, THYR, 21412-2 #### [facility] ([id number]) [address] [place] [address] 58026Eajimleaike (Bld) [#/Vol]0.1 10*3/uLNormal0.0-0.4ProMedica Defiance Regional HospitalComment on above:Performed By: #### CBCA, 86621-4, BMP, 03660-2, 09977-8, THYR, 11131-3 #### [facility] ([id number]) [address] [place] [address] 40381Lwiatiyhgao/100 WBC (Bld)1.4 %NormalProMedica Defiance Regional Hospital Comment on above:Performed By: #### CBCA, 18944-1, BMP, 13885-6, 90765-9, THYR, 32722-6 #### [facility] ([id number]) [address] [place] [address] 31396Ybpltmgzmlv distribution width (RBC) [Ratio]13.3 %Normal 11.5-15.0ProMedica Defiance Regional HospitalComment on above:Performed By: #### CBCA, 94695-9, BMP, 50695-5, 12184-9, THYR, 41330-8 #### [facility] ([id number]) [address] [place] [address] 95111Nsqsntbybl (Bld) [Volume fraction]41.2 %Ljiaum24-18EmzMbkdcrWadley Regional Medical CenterComment on above:Performed By: #### CBCA, 54578-5, BMP, 93538-6, 99104-9, THYR, 04000-4 #### [facility] ([id number]) [address] [place] [address] 69249Jikhjnweym (Bld) [Mass/Vol]13.6 g/ySKtcyid71.7-15.5PWayne HealthCare Main CampusComment on above:Performed By: #### CBCA, 04298-2, BMP, 00201-8, 16084-3, THYR, 62324-4 #### [facility] ([id number]) [address] [place] [address] 58608Dnuybmhrwgo (Bld) [#/Vol]2.1 10*3/uLNormal1.0-3.5Pro[facility] HospitalComment on above:Performed By: #### CBCA, 03208-4, BMP, 03197-1, 65958-3, THYR, 58279-1 #### [facility] ([id number]) [address] [place] [address] 46408Djwjthmyzbi/100 WBC (Bld)40.9 %NormalProMedica Defiance Regional Hospital Comment on above:Performed By: #### CBCA, 70058-3, BMP, 05145-1, 73201-9, THYR, 81540-2 #### [facility] ([id number]) [address] [place] [address] 04523RNP (RBC) [Entitic mass]28.5 etYzkumd91-54PgdBfmtqbWadley Regional Medical CenterComment on above:Performed By: #### CBCA, 04673-6, BMP, 72102-1, 29656- 7, THYR, 18967-2 #### [facility] ([id number]) [address] [place] [address] 28008SUSU (RBC) [Mass/Vol]33.0 g/pXQjhdpq99-24BuxBgfropWadley Regional Medical CenterComment on above:Performed By: #### CBCA, 87582-2, BMP, 75406-4, 66119- 7, THYR, 05897-3 #### [facility] ([id number]) [address] [place] [address] 51620YXS (RBC) [Entitic vol]87 cVQvabik35-019EscGqqssp [facility] HospitalComment on above:Performed By: #### CBCA, 30257-3, BMP, 68422-6, 27635- 7, THYR, 21050-4 #### [facility] ([id number]) [address] [place] [address] 42307Xahlhlyyj (Bld) [#/Vol]0.2 10*3/uLNormal0-0.9ProMed[facility] Defiance Regional HospitalComment on above:Performed By: #### CBCA, 02497-9, BMP, 81086-4, 93958- 7, THYR, 59699-5 #### [facility] ([id number]) [address] [place] [address] 11676Kcoloqkpf/100 WBC (Bld)4.6 %NormalProMedica Defiance Regional Hospital Comment on above:Performed By: #### CBCA, 11395-7, BMP, 45506-4, 66454-7, THYR, 13838-4 #### [facility] ([id number]) [address] [place] [address] 31275Gmyiclfytxn/100 WBC (Bld)52.4 %NormalProMedica Defiance Regional Hospital Comment on above:Performed By: #### CBCA, 97430-4, BMP, 86583-4, 57613-6, THYR, 00627-2 #### [facility] ([id number]) [address] [place] [address] 47710Hkdmejst mean volume (Bld) [Entitic vol]7.0 fLNormal7-12 [facility] HospitalComment on above:Performed By: #### CBCA, 67902-1, BMP, 05033-3, 05362-4, THYR, 70372-8 #### [facility] ([id number]) [address] [place] [address] 68272Dmhgvyibc (Bld) [#/Vol]190 10*3/dOFjwuub524-336PopBbvatq [facility] HospitalComment on above:Performed By: #### CBCA, 95836-3, BMP, 92484-2, 72420-5, THYR, 19741-4 #### [facility] ([id number]) [address] [place] [address] 12035BMQ COUNT4.77 X10E12/LNormal3.80-5.20[facility] Comment on above:Performed By: #### CBCA, 22756-4, BMP, 41858-3, 63044-9, THYR, 13959-4 #### [facility] ([id number]) [address] [place] [address] 53453DZR (Bld) [#/Vol]5.2 10*3/uLNormal4.0-11.0ProWadley Regional Medical CenterComment on above:Performed By: #### CBCA, 10191-7, BMP, 28354-5, 81229- 7, THYR, 60041-7 #### [facility] ([id number]) [address] [place] [address] 51859Salubj D-dimer DDU (PPP) [Mass/Vol]on 07-21-2024 DMXYG899 ng/mL DDUNormal<255ProWadley Regional Medical CenterComment on above:Result Comment: Results <255 ng/mL DDU: The presence of a VTE can safely be excluded with a negative D-Dimer result and Wells score. A negative result doesn't exclude the possibility of DIC. The test be repeated along with other diagnostic tests if the patient's symptoms persist or worsen. [email or web address] By: #### CBCA, 41056-6, BMP, 25931-3, 95816-1, THYR, 69313-6 #### [facility] ([id number]) [address] [place] [address] 04531KSBCZYSAQhj 50-85-3189Pwflcmeoc [Mass/Vol]2.0 mg/dLNormal 1.8-2.6ProBaylor Scott & White Heart and Vascular Hospital – Dallasment on above:Performed By: #### CBCA, 18851-2, BMP, 43282-8, 73135-7, THYR, 17676-7 #### [facility] ([id number]) [address] [place] [address], [place], [place] [address]Hvltymhwshd peptide B [Mass/Vol]on 10-65-4954Zzmxjwmyvhq peptide B (Bld) [Mass/Vol]20 pg/mLNormal<100.0ProCHRISTUS [facility] on above:Performed By: #### CBCA, 30710-5, BMP, 28470-1, 57201-6, THYR, 70727-5 #### [facility] ([id number]) [address] [place] [address] 33598BDBO/FLU A+B/RSV by NAAT/Molecularon 42-21-6406ZXFE/FLU A+B/RSV by NAAT/MolecularFLU A PCR Negative (qualifier [...] operators who are performing tests using either [employer] or [employer] systems and is limited to laboratories that [...] specimen repeat. Fact Sheet for Healthcare Providers: https://www.fda.gov/media/187742/download Fact Sheet for Patients: https://www.fda.gov/media/521416/downloadNormalProWadley Regional Medical CenterComment on above:Performed By: #### COVFLR #### [facility] ([id number]) [address] [place] [address] 40256FNSBBWH PROFILEon 73-40-5368Jqrr T4 [Mass/Vol]1.11 ng/dLNormal 0.61-1.60ProWadley Regional Medical CenterComment on above:Performed By: #### RAMAKRISHNA, 15167-4, BMP, 96251-5, 59829-6, THYR, 05638-0 #### [facility] ([id number]) [address] [place] [address] 51115RXE5.45 uIU/mLNormal0.49-4.67ProWadley Regional Medical CenterComment on above:Performed By: #### CBCA, 25101-8, BMP, 59299-6, 25191-9, THYR, 31676-9 #### [facility] ([id number]) [address] [place] [address] 09757Lgsrztat I.cardiac High sensitivity method [Mass/Vol]on HOUR TROP I, HIGH SENSITIVITY3 ng/LNormal<16ProWadley Regional Medical CenterComment on above:Performed By: #### CBCA, 12900-0, BMP, 41410-5, 54572- 7, THYR, 97641-1 #### [facility] ([id number]) [address] [place] [address] 571266 HOUR TROP I, HIGH SENSITIVITY3 ng/LNormal<16ProWadley Regional Medical CenterComment on above:Performed By: #### 65465-4 #### [facility] ([id number]) [address] [place] [address] 58717QOUDCDHZ I, HIGH SENSITIVITY3 ng/LNormal<16ProWadley Regional Medical CenterComment on above:Performed By: #### CBCA, 96643-0, BMP, 78647-2, 00517- 7, THYR, 88267-5 #### [facility] ([id number]) [address] [place] [address] 97266YV CHEST 1 VWon 75-43-1015QQ CHEST 1 VWXR CHEST 1 VW XR CHEST 1 VW IMPRESSION: Clinical Information: chest pain Comparison: 06/28/24. * No pulmonary edema or consolidation. * No effusions. * Stable heart size. * Mild elevation right hemidiaphragm. Finalized by Shama Calvin MD on 07/21/2024 5:08 PMNormalProMedica Defiance Regional HospitalMAGR Postoperative Recordon 33-22-1442JFPQ Postoperative RecordMAGR Phase II Record Summary Primary Physician: Gary Miller DO Finalized Date/Time: 07/16/24 07:39:56 Pt. Name: CARISSA SANTOS/Sex: 1980 FEMALE Med Rec #: [id number] Physician: Gary Miller DO Financial #: [id number] Pt. Type: D Room/Bed: / Admit/Disch: 06/17/24 [...] 1 minute in order for charges to drop.[facility] TOMOSYNTHESIS SCREENING BIon 76-57-0465[place]flHold[place], [place] [address] Mammography Report Signed Patient: CARISSA SANTOS MR#: [id number] : 1980 Acct:[id number] Age/Sex: 43 / F ADM Date: 06/28/24 Loc: MAMMO Attending Dr: Feliz Benz D.O. Ordering Physician: Feliz Benz D.O. Results: Date of Service: 06/28/24 Follow Up: Procedure(s): MM tomosynthesis screening BI Accession Number(s): [id number] cc: Feliz Benz D.O.; Diaz Dalton M.D. Patient Name: CARISSA SANTOS MR#: [id number] : 1980 Exam Date: 06/28/2024 Ordering Doctor: [...] Treatments None Family Cancers None LOCATION: [facility] BREAST COMPOSITION: There are scattered areas [...] BIOPSIED. Dictated by: Harvinder Deleon M.D. on 06/30/2024 at 19:48 Approved by: Harvinder Deleon M.D. on 06/30/2024 at 19:52 Dictated By: Harvinder Deleon M.D. Signed By: 06/30/241953 DD/ 51 TD/TT: Exhauster:TBHRadiology, Radiologist, MD - 06/30/2024 [place] [address] Mammography Report Signed Patient: CARISSA SANTOS MR#: [id number] : 1980 Acct:[id number] Age/Sex: 43 / F ADM Date: 06/28/24 Loc: MAMMO Attending Dr: Feliz Benz D.O. Ordering Physician: Feliz Benz D.O. Results: Date of Service: 06/28/24 Follow Up: Procedure(s): MM tomosynthesis screening BI Accession Number(s): [id number] cc: Feliz Benz D.O.; Diaz Dalton M.D. Patient Name: CARISSA SANTOS MR#: [id number] : 1980 Exam Date: 06/28/2024 Ordering Doctor: [...] Treatments None Family Cancers None LOCATION: [facility] BREAST COMPOSITION: There are scattered areas [...] BIOPSIED. Dictated by: Harvinder Deleon M.D. on 06/30/2024 at 19:48 Approved by: Harvinder Deleon M.D. on 06/30/2024 at 19:52 Dictated By: Harvinder Deleon M.D. Signed By: 06/30/241953 DD/ 51 TD/TT: Exhauster: [facility] CenterRadiology Study observation (narrative)[facility] TOMOSYNTHESIS SCREENING BIOrdered By: Radiologist Radiology on 91-07-2431JJMZ [employer] Work Phone: cOMPLETE BLOOD COUNTon 46-00-9480Mcvlhkawxiv distribution width (RBC) [Ratio]14.2 %Tdjnuh22.5-15.0[facility] Comment on above:Performed By: #### CBC #### [facility] ([id number]) [address], [address] [place], [place] [address]Mnzunjwtix (Bld) [Volume fraction]38.8 %Zyumls71-75BwgPqgrfeKettering Health Behavioral Medical CenterComment on above:Performed By: #### CBC #### [facility] ([id number]) [address], [address] [place], [place] [address]Ldudyaxrlv (Bld) [Mass/Vol]12.9 g/uQNhtvek35.7-15.5Pro[facility] HospitalComment on above:Performed By: #### CBC #### [facility] ([id number]) [address], [address] [place], [place] [address]QQZ (RBC) [Entitic mass]29.0 sgZpccef74-14HmaNveboi [facility] HospitalComment on above:Performed By: #### CBC #### [facility] ([id number]) [address], [address] [place], [place] [address]HZHH (RBC) [Mass/Vol]33.2 g/oGVchcsh98-74JhzPcfspu [facility] HospitalComment on above:Performed By: #### CBC #### [facility] ([id number]) [address], [address] [place], [place] [address]ANJ (RBC) [Entitic vol]87 pKPddhsa70-627NvsZgarir [facility] HospitalComment on above:Performed By: #### CBC #### [facility] ([id number]) [address], [address] [place], [place] [address]Ndnjqedg mean volume (Bld) [Entitic vol]6.9 fLLow7-12ProMedica [facility] HospitalComment on above:Performed By: #### CBC #### [facility] ([id number]) [address], [address] [place], [place] [address]Ltsbysdrr (Bld) [#/Vol]210 10*3/pUSgexir353-499EwbNgmicx [facility] HospitalComment on above:Performed By: #### CBC #### [facility] ([id number]) [address], [address] [place], [place] [address]PMJ COUNT4.46 X10E12/LNormal3.80-5.20[facility] Comment on above:Performed By: #### CBC #### [facility] ([id number]) [address], [address] [place], [place] [address]QZA (Bld) [#/Vol]6.5 10*3/uLNormal4.0-11.0ProKettering Health Behavioral Medical CenterComment on above:Performed By: #### CBC #### [facility] ([id number]) [address] [place], [place] [address]JKW FCGD9uc 55-03-6983Sndzjced [Moles/Vol]99 mmol/PKclbht71-789 ProMMount Carmel Health SystemComment on above:Performed By: #### IELGBC #### [facility] ([id number]) [address] [place], [place] [address]XY8 [Moles/Vol]30 mmol/THutrmf09-47YdsNgghexCrystal Clinic Orthopedic Center Comment on above:Performed By: #### IELGBC #### [facility] ([id number]) [address] [place], [place] [address]Dozccyfzdb [Mass/Vol]0.9 mg/dLNormal0.4-1.0Park[facility] Montpelier HospitalComment on above:Result Comment: METHOD TRACEABLE TO IDMS STANDARD Performed By: #### IELGBC #### [facility] ([id number]) [address] [place], [place] [address]SJA/1.73 sq M.predicted among non-blacks MDRD (S/P/Bld) [Vol rate/Area]81 mL/min/{1.73_m2}Normal>59ProKettering Health Behavioral Medical CenterComment on above: Result Comment: Reported eGFR is based on the CKD-EPI 2020 equation that does not use a race coefficient.Performed By: #### IELGBC #### [facility] ([id number]) [address] [place], [place] [address]Rgfotix [Mass/Vol]128 mg/jUObpo45-10PhcOnpkohParkview Health Montpelier Hospital Comment on above:Performed By: #### IELGBC #### [facility] ([id number]) [address] [place], [place] [address]Louznjeag [Moles/Vol]4.3 mmol/LNormal3.5-5.0Pro[facility] HospitalComment on above:Performed By: #### IELGBC #### [facility] ([id number]) [address] [place], [place] [address]Fvtcqd [Moles/Vol]140 mmol/HFyhaff342-720NmoAciklf [facility] HospitalComment on above:Performed By: #### IELGBC #### [facility] ([id number]) [address] [place], [place] [address]Dvtc nitrogen [Mass/Vol]28 mg/dLHigh6-23ProMedica [facility]ville HospitalComment on above:Performed By: #### IELGBC #### [facility] ([id number]) [address] [place], [place] [address]Svdzge Summaryon 11-05-1016Ortmrm SummaryHTMLBase 64 GenmffscAHz6qMv+PGhlYWQ+MF7XTXYwB80dfKAafV5iH3AEWKyFSajdCGDTQXyTFqBlkiSyRZ6fhLRk ZXJu [file] ci1 (more content not included)...[facility] Intraoperative Recordon 77-67-6233LOUB Intraoperative RecordMAGR Intra-Op Record Summary Primary Physician: Gary Miller DO Finalized Date/Time: 06/20/24 08:21:54 Pt. Name: CARISSA SANTOS/Sex: 1980 FEMALE Med Rec #: [id number] Physician: Gary Miller DO Financial #: [id number] Pt. Type: D Room/Bed: / Admit/Disch: 06/17/24 [...] Role Performed Surgeon - Primary Anesthesiologist of Post Partum Nurse Record Time In 06/17/24 10:22:00 06/17/24 10:16:00 06/17/24 10:16:00 Time Out 06/17/24 10:37:00 06/17/24 10:43:00 06/17/24 10:43:00 Procedure Carpal Tunnel Carpal Tunnel Carpal Tunnel Release(Right) Release(Right) Release(Right) Last Modified By: Jessica Ordonez RN, Diane RN Kokinda, Diane RN 06/17/24 10:47:37 06/17/24 10:47:37 06/17/24 10:47:37 Entry 4 Entry 5 Case Attendee Heaven Lainez Regina CSFA CINDER BLOCK MASON CINDER BLOCK MASON Role Performed Scrub Personnel Quality Control Checker Time In 06/17/24 10:16:00 06/17/24 10:16:00 Time [...] Out Time 06/17/24 10:28:00 Participants Gerri Newberry CINDER BLOCK MASON, Jessica Ordonez RN Last Modified By: Jessica [...] A.30 Verifies allergies Im.2 (more content not included)...[facility] HospitalConsent Formson 67-89-4437Oqmnkch Forms [id number]#1.00OTMarietta Memorial Hospital Discharge Instructionson 52-82-5948Xcrzmayly Instructions [id number]#1.00OTMarietta Memorial Hospital Outside Recordson 28-34-7124Imvpqug Records [id number]#1.00[facility] Anesthesia Noteon 49-93-1629Ikdyrsbafr NotePatient: CARISSA SANTOS Age: 43 years Sex: FEMALE : 1980 Associated Diagnoses: None Author: Olivier Lares MD Postoperative Information Post Operative Note: Operative Day. Anesthetic utilized: Monitored anesthesia care. Health Status Allergies: Allergic Reactions (All) Moderate Bactrim- Rash. Canceled/Inactive Reactions (All) No known allergies Problem list: All Problems Anxiety / SNOMED CT 12783227 / Confirmed Chronic hypoxic respiratory failure / SNOMED CT 1272477111 / Confirmed Depression / SNOMED CT 72579558 / Confirmed Developmental delay / SNOMED CT 217080438 / Confirmed Diabetes / SNOMED CT 641074734 / Confirmed GERD (gastroesophageal reflux disease) / SNOMED CT 305913190 / Confirmed High blood cholesterol / SNOMED CT 22395947 / Confirmed HTN (hypertension) / SNOMED CT 0618925678 / Confirmed Irritable bowel syndrome (IBS) / SNOMED CT 54348673 / Confirmed Pulmonary nodule / SNOMED CT 4362846183 / Confirmed Obesity / SNOMED CT 4148629258 / Confirmed Physical Examination Vital Signs (last [...] [Verified on: 06/17/2024 10:48 EDT] Olivier Lares MDGreen Cross HospitalAnesthesia NotePatient: CARISSA SANTOS Age: 43 years Sex: [...] list: All Problems Anxiety / SNOMED CT 12893492 / Confirmed Chronic hypoxic respiratory failure / SNOMED CT 3602270589 / Confirmed Depression / SNOMED CT 57625374 / Confirmed Developmental delay / SNOMED CT 030766228 / Confirmed Diabetes / SNOMED CT 403155624 / Confirmed GERD (gastroesophageal reflux disease) / SNOMED CT 649759674 / Confirmed High blood cholesterol / SNOMED CT 67041262 / Confirmed HTN (hypertension) / SNOMED CT 6295665299 / Confirmed Irritable bowel syndrome (IBS) / SNOMED CT 52584895 / Confirmed Pulmonary nodule / SNOMED CT 9914855599 / Confirmed Obesity / SNOMED CT 1176660676 / Confirmed Histories Family History: Heart attack Mother COPD (chronic obstructive pulmonary disease) Mother Procedure history: Carpal tunnel ([id number]) on 09/25/2023 at 43 Years. Comments: 09/25/2023 8:27 EST - Jennyfer Gresham RN left TL - Tubal ligation ([id number]) on 03/31/2023 at 42 Years. Genital warts ([id number]). Cholecystectomy (68148587). Decompression of ulnar nerve ([id number]). Comments: 04/16/2024 10:03 EDT - Fady ERICKSON, [...] Oriented. Review / Management Laboratory Results Plan [place] [employer] (ASA) physical status classification: Class III. Anesthetic Preoperative Plan Anesthesia: Monitored anesthesia care. Anesthetic plan, risks, benefits, and alternatives discussedwith the patient and/or family. Patient verbalized understanding. Informed consent was given. Consent was signed by the patient. [Electronically Signed on: 06/17/2024 10:14 EDT] Olivier Lares MD [Verified on: 10 (more content not included)...[facility] [id number] Patient Summary[address] [id number] Patient Discharge Instructions Name: CARISSA SANTOS : 1980 Patient Address: [facility] [address] Primary Care Provider: Name: DIAZ DALTON After you are discharged if you find you have any questions, please, call [phone] ext [phone] to speak to a nurse. Discharge Diagnosis: Carpal tunnel syndrome, right Prescription Information: If you have been given a prescription for narcotics, seek immediate medical attention if you have any difficulty breathing or any sudden status changes such as confusion andsleepiness. If you or anyone you know is experiencing suicidal thoughts, mental health, alcohol and/or drug addiction problems; contact the [facility] 27/03 Crisis Hotline -Text 4HENZ ym 326049. If you received any narcotics, sedation, or [...] business decisions or sign any legal documents [facility] would like to thank you for allowing us to assist you with your healthcare needs.The following includes patient education materials and information regarding your injury/illness. CARISSA SANTOS has been given the following list of follow-up instructions, prescriptions, andpatient education materials: Follow-up Instructions With: Address: When: Barry Snowden [address] [place] [id number] Business (1) 06/24/2024 10:15 AM Medications During [...] every day. Durable Medical Equipment for Prescription ([email or web address] SENSOR 14D) APPLY 1 SENSOR TO BACK [...] 40 mg oral (more content not included)...Normal [facility] Preoperative [facility] [id number] Preoperative Record MAGR Pre-Op Record Summary Primary Physician: Gary Miller DO Finalized Date/Time: 06/17/24 13:04:23 Pt. Name: CARISSA SANTOS/Sex: 1980 FEMALE Med Rec #: [id number] Physician: Gary Miller DO Financial #: [id number] Pt. Type: D Room/Bed: / Admit/Disch: 06/17/24 [...] Signatures Signed By: Jennyfer Gresham RN 06/17/24 13:04[facility] Glucose Levelon 47-99-4495Nhebpbd [Mass/Vol]43 mg/dLCritically geysgzze78-264Qdfkllht[address] [place] [address] Comment on above:Result Comment: OPR_ID=IN_LIST,TGC FLAG = False,Meter:[id number] Performance Improvement Analyst:Jojo DangeloPerformed By: #### [id number] ####[facility] (DEFAULT)[address] [place], [place] [address]Whnmjlh Handouton 06-17-2024 Patient HandoutDRBrian MILLER'S POST OPERATIVE CARPAL TUNNEL INSTRUCTIONS: SURGEON'S WRITTEN INSTRUCTIONS: 1. Keep your hand elevated above your elbow for the first 24 hours after surgery. 2. Wiggle your fingers frequently while awake. 3. DO NOT lift heavy objects or aircraft engine cylinder mechanic forcefully with your hand. 4. Change your [...] or concerns, please call the office at [phone]. 7. Follow up as scheduled.[facility] - Nurseon 92-48-1107Canugmdy Note - NursePre-op call made- pt given arrival time of 0800 on 06-17-2024. Pt reminded of NPO status after midnight except for any meds that she was instructed to take with sip of water, needing rail car driver, to bringphoto ID and insurance card, hibiclens shower- pt with understanding. [Electronically Signed on: 06/14/2024 10:52 EDT] Margaret Cuellar RN [Verified on: 06/14/2024 10:52 EDT] Margaret Cuellar RN, Dr [facility] concerned whether pt has hold her Mounjaro medication for a week- pt recalled and pt stated that last dose of her Mounjaro was on 06-03-2024. [Electronically Signed on: 06/14/2024 11:05 EDT] Margaret CuellarACMC Healthcare Systemess Note - Nursesimran 84-25-7590Objtdojd Ursula - Javid Flores reviews pt clearance and states that a new PAT is not necessary. [Electronically Signed on: 05/31/2024 11:43 EDT] Kalyani Ortiz RN [Verified on: 05/31/2024 11:43 EDT] Kalyani Ortiz [facility] HospitalCoding Summaryon 87-82-2031Eypiwx SummaryHTMLBase 64 KuiqamvpDMo3eNe+PGhlYWQ+OZ9NDJHxM04peTLpiC6oI7DRTYcHVhpoFRRLCEzMPrQqtkPxZU0mySVi ZXJu [file] ZTo (more content not included)...[facility] Note - Nurseon 68-20-4785Cvildbbm Note - NurseWriter spoke with Adriane at Dr. Jones office and informed her that per Dr. Barrett pt will need an echo to evaluate for pulmonary HTN before her surgery. Adriane verbalizes understanding. [Electronically Signed on: 04/18/2024 15:41 EDT] Jennyfer Gresham RN [Verified on: 04/18/2024 15:41 EDT] Jennyfer Gresham [facility] Ursula - Javid Barrett reviewed PAT information. Per Dr. Barrett pt needs echo as recommended by pulmonology to eval uate for Pulmonary HTN. Waiting to hear back from Dr. Jones office to inform them of need forecho. [Electronically Signed on: 04/18/2024 15:20 EDT] Jennyfer Gresham RN [Verified on: 04/18/2024 15:20 EDT] Ager, Jennyfer [facility].Auto Diff 1on 86-01-2342Zrlo Moultrie %6 % Normal1-12[facility] HospitalComment on above:Performed By: #### [id number], [id number], [id number] ####[facility] (DEFAULT)[address] [place] [address] 86699Cyjd Abs#0.0 d49Nfklhs8.0-0.2Magrpromedica bay park hospital HospitalComment on above: Performed By: #### [id number], [id number], [id number] ####[facility] (DEFAULT)[address] [place] [address] 74627Fkzcsuxyg/100 WBC (Bld)0.5 % Normal0.2-2.0[facility] HospitalComment on above:Performed By: #### [id number], [id number], [id number] ####[facility] (DEFAULT)[address] [place] [address] 89082Dbo Abs#0.1 e05Ltvmdh4.0-0.4[facility] HospitalComment on above: Performed By: #### [id number], [id number], [id number] ####[facility] (DEFAULT)[address] [place] [address] 37985Kjkhrtfczmj/100 WBC (Bld)1.4 % Normal0.9-4.0[facility] HospitalComment on above:Performed By: #### [id number], [id number], [id number] ####[facility] (DEFAULT)[address] [place] [address] 89843Mjtcq Abs#1.9 r17Xwvxtd1.3-2.9[facility] HospitalComment on above:Performed By: #### [id number], [id number], [id number] ####[facility] (DEFAULT)[address] [place] [address] 18571Bqkqegurcrb/100 WBC (Bld)37 % Mtrkin60-32Cvnblswr HospitalComment on above:Performed By: #### [id number], [id number], [id number] ####[facility] (DEFAULT)[address] [place] [address] 33656Ryld Abs#0.3 e61Rfyown4.0-0.8[facility] HospitalComment on above: Performed By: #### [id number], [id number], [id number] ####[facility] (DEFAULT)[address] [place] [address] 28087Tsxq Abs#2.8 a09Eizhhx6.5-9.2 [facility] HospitalComment on above:Performed By: #### [id number], [id number], [id number] ####[facility] (DEFAULT)[address] [place] [address] 47847 Neutrophils/100 WBC (Bld)55 %Xszqxb70-74Nffqvcru HospitalComment on above: Performed By: #### [id number], [id number], [id number] ####[facility] (DEFAULT)[address] [place] [address] 63262CDU Standardon 71-98-8330fBNB Non AA>60Invalid Interpretation [facility] HospitalComment on above:Performed By: #### [id number], [id number], [id number] ####[facility] (DEFAULT)[address] [place] [address] 34328cGCJ AA>60Invalid Interpretation CodeKettering Health Miamisburg HospitalComment on above:Performed By: #### [id number], [id number], [id number] ####[facility] (DEFAULT)[address] [place] [address] 06326Tbbvj gap [Moles/Vol]11.4 mmol/LNormal5.0-19.0[facility] HospitalComment on above:Performed By: #### [id number], [id number], [id number] ####[facility] (DEFAULT)[address] [place] [address] 90496Idwlsmy [Mass/Vol]8.7 mg/dLLow8.9-10.3[facility] HospitalComment on above:Performed By: #### [id number], [id number], 9341965 ####[facility] (DEFAULT)[address] [place] [address] 37799Bqedgluu [Moles/Vol]100 mmol/PRzo825-607Esihriar HospitalComment on above:Performed By: #### [id number], [id number], 5390948 ####[facility] (DEFAULT)[address] [place] [address] 96572ST2 [Moles/Vol]27 mmol/KGqfifk88-98[facility] Comment on above:Performed By: #### [id number], [id number], 4345709 ####[facility] (DEFAULT)[address] [place] [address] 89434Xzvjqgcifn [Mass/Vol] 0.73 mg/dLNormal0.60-1.30[facility] HospitalComment on above:Performed By: #### [id number], [id number], 0910162 ####[facility] (DEFAULT)[address] [place] [address] 69715Tmesahv [Mass/Vol]249.0 mg/iPSabb11.0-118.0[facility] HospitalComment on above:Performed By: #### [id number], [id number], 4281441 ####[facility] (DEFAULT)[address] [place] [address] 20781Ufqpkkizqz 279 mOsm/LInvalid Interpretation CodeKettering Health [facility]amisburg HospitalComment on above:Performed By: #### [id number], [id number], 6838085 ####[facility] (DEFAULT)[address] [place] [address] 90015Luzuhhaxq [Moles/Vol]4.4 mmol/LNormal3.6-5.1 [facility] HospitalComment on above:Performed By: #### [id number], [id number], 1534549 ####[facility] (DEFAULT)[address] [place] [address] 66457 Sodium [Moles/Vol]134.0 mmol/NSdf904.0-144.0[facility] HospitalComment on above: Performed By: #### [id number], [id number], 8369496 ####[facility] (DEFAULT)[address] [place] [address] 24259Ihcf nitrogen [Mass/Vol]20 mg/dL Normal8-26[facility] HospitalComment on above:Performed By: #### [id number], [id number], 5317096 ####[facility] (DEFAULT)[address] [place] [address] 32554Sfzp nitrogen/Creatinine [Mass ratio]27.3 mg/mgHigh4.6-16.2 [facility] HospitalComment on above:Performed By: #### [id number], [id number], 4592087 ####[facility] (DEFAULT)[address] [place] [address] 47776 CBC w/ Auto Diffon 41-14-1098Vhjwjfxzkfv distribution width (RBC) [Ratio]13.9 % Xefqzf59.5-15.0[facility] HospitalComment on above:Performed By: #### [id number], [id number], 1272757 ####[facility] (DEFAULT)[address] [place] [address] 13563Dngbvhmuuw (Bld) [Volume fraction]43.1 %High33.7-40.4[facility] HospitalComment on above:Performed By: #### [id number], [id number], 7386958 ####[facility] (DEFAULT)[address] [place] [address] 94775Ofdqhfzcrw (Bld) [Mass/Vol]14.0 g/qZDrzhqg68.3-15.9[facility] HospitalComment on above: Performed By: #### [id number], [id number], 6657093 ####[facility] (DEFAULT)[address] [place] [address] 26223Xjr Diff?AutoInvalid Interpretation CodeKettering Health Miamisburg HospitalComment on above:Performed By: #### [id number], [id number], 0728509 ####[facility] (DEFAULT)[address] [place] [address] 99941ZGE (RBC) [Entitic mass]28 rqOlhnbl53-21Jrudhhis HospitalComment on above:Performed By: #### [id number], [id number], 4215294 ####[facility] (DEFAULT)[address] [place] [address] 02559BKOL (RBC) [Mass/Vol]33 g/gPJoydmw23-09Bjngaaxc HospitalComment on above:Performed By: #### [id number], [id number], 1999758 ####[facility] (DEFAULT)[address] [place] [address] 69576SWW (RBC) [Entitic vol]86 eOMvtnwe13-067Tcwjswmn HospitalComment on above:Performed By: #### [id number], [id number], 7475604 ####[facility] (DEFAULT)[address] [place] [address] 04686Cfygjhpw 204 x50Upvnow809-097Mtioqlpj HospitalComment on above:Performed By: #### [id number], [id number], 9085438 ####[facility] (DEFAULT)[address] [place] [address] 14345Xugetxdr mean volume (Bld) [Entitic vol]7.4 fLNormal 6.3-10.2[facility] HospitalComment on above:Performed By: #### [id number], [id number], 6251689 ####[facility] (DEFAULT)[address] [place] [address] 61401VRX7.99 h70Vwylhp6.70-5.30[facility] HospitalComment on above: Performed By: #### [id number], [id number], 0835433 ####[facility] (DEFAULT)[address] [place] [address] 10184ZJR4.1 a14Dwgcbo6.5-10.5[facility] HospitalComment on above:Performed By: #### [id number], [id number], 8821469 ####[facility] (DEFAULT)[address] [place] [address] 83490WB PELVIS W/ TRANSVAGINALon 37-72-2951V[address] [address] Ultrasound Report Signed Patient: CARISSA SANTOS MR#: [id number] : 1980 Acct:[id number] Age/Sex: 43 / F ADM Date: 04/02/24 Loc: NOMS Attending Dr: Georgette Dodd Ordering Physician: Georgette Dodd Date of Service: 04/02/24 Procedure(s): US pelvis w/ transvaginal Accession Number(s): [id number] cc: Georgette Dodd; Diaz Dalton M.D. The [address] [id number] Patient Name: CARISSA SANTOS MRN: [id number] date: 1980 Sex: F Assigned Patient Location: [facility] Current Patient Location: Accession/Order Number: [id number] Exam Date: 04/02/2024 11:53 Report Date: 04/03/2024 08:29 At the request of: GEORGETTE DODD Procedure: US pelvis w/ transvaginal EXAMINATION: US [...] M.D. Signed By: 04/03/24830 DD/ 8 TD/TT: Exhauster:TBHRadiology, Radiologist, MD - 04/03/2024 [place] [address] Ultrasound Report Signed Patient: CARISSA SANTOS MR#: [id number] : 1980 Acct:[id number] Age/Sex: 43 / F ADM Date: 04/02/24 Loc: NOMS Attending Dr: Georgette Dodd Ordering Physician: Georgette Dodd Date of Service: 04/02/24 Procedure(s): US pelvis w/ transvaginal Accession Number(s): [id number] cc: Georgette Dodd; Diaz Dalton M.D. The [place] [id number] Patient Name: CARISSA SANTOS MRN: [id number] date: 1980 Sex: F Assigned Patient Location: [facility] Current Patient Location: Accession/Order Number: [id number] Exam Date: 04/02/2024 11:53 Report Date: 04/03/2024 08:29 At the request of: GEORGETTE DODD Procedure: US pelvis w/ transvaginal EXAMINATION: US [...] M.D. Signed By: 04/03/24830 DD/ 8 TD/TT: Exhauster: [facility] HealthcareRadiology Study observation (narrative)[facility] HealthcareUS PELVIS W/ TRANSVAGINALOrdered By: Radiologist Radiology on 76-67-9865[facility] Work Phone: ct ABDOMEN/PELVIS WO CONTon 07-45-4140Xae [place] [address] CT Scan Report Signed Patient: CARISSA SANTOS MR#: [id number] : 1980 Acct:[id number] Age/Sex: 43 / F ADM Date: 04/01/24 Loc: CT Attending Dr: Georgette Dodd Ordering Physician: Georgette Dodd Date of Service: 04/01/24 Procedure(s): CT abdomen pelvis wo con Accession Number(s): [id number] cc: Diaz Dalton M.D. [address] [id number] Patient Name: CARISSA SANTOS MRN: [id number] date: 1980 Sex: F Assigned Patient Location: CT Current Patient Location: Accession/Order Number: [id number] Exam Date: 04/01/2024 12:24 Report Date: 04/02/2024 06:38 At the request of: GEORGETTE DODD Procedure: CT abdomen pelvis wo con EXAMINATION: [...] umbilical hernia without strangulation. Electronically authenticated by: HARVINDER DELEON Date: 04/02/2024 06:38 Dictated By: Harvinder Deleon M.D. Signed By: 04/02/2440 DD/ 0638 TD/TT: Exhauster:NEELIMAadiologmarco antonio, Radiologist, - 04/02/[address] [address] [address] Scan Report Signed Patient: CARISSA SANTOS MR#: [id number] : 1980 Acct:[id number] Age/Sex: 43 / F ADM Date: 04/01/24 Loc: CT Attending Dr: Georgette Dodd Ordering Physician: Georgette Dodd Date of Service: 04/01/24 Procedure(s): CT abdomen pelvis wo con Accession Number(s): [id number] cc: Diaz Dalton M.D. The [address] [address] Patient Name: CARISSA SANTOS MRN: [id number] date: 1980 Sex: F Assigned Patient Location: CT Current Patient Location: Accession/Order Number: [id number] Exam Date: 04/01/2024 12:24 Report Date: 04/02/2024 06:38 At the request of: GEORGETTE DODD Procedure: CT abdomen pelvis wo con EXAMINATION: [...] umbilical hernia without strangulation. Electronically authenticated by: HARVINDER DELEON Date: 04/02/2024 06:38 Dictated By: Harvinder Deleon M.D. Signed By: 04/02/24639 DD/ 7 TD/TT: Exhauster: [facility] HealthcareRadiology Study observation (narrative)[facility] HealthcareCT ABDOMEN/PELVIS WO CONTOrdered By: Radiologist Radiology on 02-41-5316OBQU [employer] Work Phone: bacteria identified Cx Nom (U)on 12-23-2023 Interpretation and review of laboratory resultsAbnoAtrium Health Mercy Service comment (Unsp spec) [Interp]>100,000 ORGANISMS/mL ESCHERICHIA COLI AbnormalMagruder Hospital SystemService comment (Unsp spec) [Interp]<10,000 ORGANISMS/mL NORMAL URO GENITAL FLORAPaladin HealthcareBasic Metabolic Panelon 82-13-5664Uuzxj gap [Moles/Vol]8 mmol/L5 - 15 mmol/[facility] SystemCalcium [Mass/Vol]8.2 mg/dLLow8.5 - 10.5 mg/dL [facility] SystemChloride [Moles/Vol]104 mmol/L98 - 109 mmol/LProMednoland hospital anniston Health SystemCO2 [Moles/Vol]25 mmol/L22 - 32 mmol/[facility] CenteroMednoland hospital [facility] System Creatinine [Mass/Vol]0.89 mg/dL0.40 - 1.00 mg/dLSumma Health Wadsworth - Rittman Medical CenterComment on above:METHOD TRACEABLE TO [facility] STANDARDeGFR (CKD-EPI)non-race hemazmohk84- [facility] Medical CenterComment on above: Reported eGFR is based on the CKD-EPI 2020 equation that does not use a race coefficient. Glucose [Mass/Vol]215 mg/tMMfin73 - 99 mg/dLSumma Health Wadsworth - Rittman Medical Center Interpretation and review of laboratory resultsAbAmsterdam Memorial Hospital Potassium [Moles/Vol]4.3 mmol/L3.5 - 5.0 mmol/LPrFairfield Medical Center SystemSodium [Moles/Vol]137 mmol/L134 - 146 mmol/[facility] CampusUrea nitrogen [Mass/Vol]22 mg/dL5 - 23 mg/dLSumma Health Wadsworth - Rittman Medical CenterCBC without diffon 21-57-9081Neiegnlohqi distribution width (RBC) [Ratio]13.8 %11.5 - 15.0 % [facility] Ritt[facility] Medical CenterHematocrit (Bld) [Volume fraction]33.8 %Low35 - 47 % [facility] Ritt[facility] Medical CenterHemoglobin (Bld) [Mass/Vol]11.5 g/dLLow11.7 - 15.5 g/dL [facility] Medical CenterInterpretation and review of laboratory resultsAbnoal [facility] Ritt[facility] Medical CenterMCH (RBC) [Entitic mass]29.2 pg27 - 34 [facility] HospitalMCHC (RBC) [Mass/Vol]34.0 g/dL32 - 36 g/dLSumma Health Wadsworth - Rittman Medical CenterMCV (RBC) [Entitic vol]86 fL80 - 100 [facility] Sports MedicinePlatelet mean volume (Bld) [Entitic vol]7.6 fL7 - 12 [facility] Sports MedicinePlatelets (Bld) [#/Vol]183 10*3/[facility] HospitalRBC (Bld) [#/Vol]3.94 10*6/[facility] HospitalWBC corrected for nucl RBC Auto (Bld) [#/Vol]4.0[facility] Behavioral HealthcareGlucose Glucometer (BldC) [Mass/Vol]on 60-11-6488Ywopqvw [Mass/Vol]309 mg/nLUxck23 - 99 mg/dLSumma Health Wadsworth - Rittman Medical CenterInterpretation and review of laboratory resultsAbSelect [facility] UPMCGlucose [Mass/Vol]236 mg/xHCkil30 - 99 mg/dLSumma Health Wadsworth - Rittman Medical Center Interpretation and review of laboratory resultsAbAurora St. Luke's South Shore Medical Center– CudahyMagnesiumon 11-49-0852Tsodadvew [Mass/Vol]2.0 mg/dL1.8 - 2.6 mg/dLSumma Health Wadsworth - Rittman Medical CenterNo Panel Informationon 64-93-1387EgeAkknqcGalion Community HospitalBasic Metabolic Panelon 70-31-8699Cnirp gap [Moles/Vol]10 mmol/L5 - 15 mmol/[facility] CampusCalcium [Mass/Vol]8.3 mg/dLLow8.5 - 10.5 mg/dL [facility] Medical CenterChloride [Moles/Vol]100 mmol/L98 - 109 mmol/[facility] CampusCO2 [Moles/Vol]25 mmol/L22 - 32 mmol/[facility] System Creatinine [Mass/Vol]0.87 mg/dL0.40 - 1.00 mg/dLSumma Health Wadsworth - Rittman Medical CenterComment on above:METHOD TRACEABLE TO IDMN STANDARDeGFR (CKD-EPI)non-race - [facility] Medical CenterComment on above: Reported eGFR is based on the CKD-EPI 2020 equation that does not use a race coefficient. Glucose [Mass/Vol]301 mg/kYMivz43 - 99 mg/dLSumma Health Wadsworth - Rittman Medical Center Interpretation and review of laboratory resultsAbnormalSumma Health Wadsworth - [facility]itt[facility] Medical Center Potassium [Moles/Vol]4.0 mmol/L3.5 - 5.0 mmol/[facility] Hospitalodium [Moles/Vol]135 mmol/L134 - 146 mmol/[facility] CampusUrea nitrogen [Mass/Vol]28 mg/dLHigh5 - 23 mg/dLSumma Health Wadsworth - Rittman Medical CenterCB without diffon 36-62-1328Xhqrqgbwfpz distribution width (RBC) [Ratio]13.4 %11.5 - 15.0 % [facility] Ritt[facility] Medical CenterHematocrit (Bld) [Volume fraction]36.6 %35 - 47 % [facility] Ritt[facility] Medical CenterHemoglobin (Bld) [Mass/Vol]12.3 g/dL11.7 - 15.5 g/dL [facility]HealthH (RBC) [Entitic mass]28.9 pg27 - 34 [facility] HospitalMCHC (RBC) [Mass/Vol]33.6 g/dL32 - 36 g/dLSumma Health Wadsworth - Rittman Medical CenterMCV (RBC) [Entitic vol]86 fL80 - 100 [facility] MedicinePlatelet mean volume (Bld) [Entitic vol]7.4 fL7 - 12 [facility] MedicinePlatelets (Bld) [#/Vol]220 10*3/[facility] HospitalRBC (Bld) [#/Vol]4.26 10*6/[facility] HospitalWBC corrected for nucl RBC Auto (Bld) [#/Vol]5.1PJefferson Abington HospitalGlucose Glucometer (BldC) [Mass/Vol]on 56-55-6290Njsqndb [Mass/Vol]283 mg/qCKdus90 - 99 mg/dLSumma Health Wadsworth - Rittman Medical CenterGlucose [Mass/Vol]269 mg/qBVetu49 - 99 mg/dLSumma Health Wadsworth - Rittman Medical CenterInterpretation and review of laboratory resultsAbnoGuthrie Troy Community HospitalGlucose [Mass/Vol]402 mg/dLCritically high65 - 99 mg/dLSumma Health Wadsworth - [facility] Center Interpretation and review of laboratory resultsAbAurora St. Luke's South Shore Medical Center– CudahyGlucose [Mass/Vol]325 mg/oRWvib78 - 99 mg/dLSumma Health Wadsworth - Rittman Medical CenterInterpretation and review of laboratory resultsAbSelect Specialty Hospital [facility] Pittsburgh UPMCMagnesiumon 39-99-1089Npwyebryj [Mass/Vol] 1.9 mg/dL1.8 - 2.6 mg/dLSumma Health Wadsworth - Rittman Medical CenterNo Panel Informationon 12-22-2023 [facility]itt[facility] Medical CenterBasic Metabolic Panelon 04-78-9927Qgynt gap [Moles/Vol]9 mmol/L5 - 15 mmol/LPrSalem Regional Medical CenterCalcium [Mass/Vol]8.7 mg/dL8.5 - 10.5 mg/dLSumma Health Wadsworth - Rittman Medical CenterChloride [Moles/Vol]96 mmol/LLow98 - 109 mmol/L [facility] Medical CenterCO2 [Moles/Vol]29 mmol/L22 - 32 mmol/LProMedica Aspirus Ironwood HospitalCreatinine [Mass/Vol]0.80 mg/dL0.40 - 1.00 mg/dLSumma Health Wadsworth - Rittman Medical Center Comment on above:METHOD TRACEABLE TO IDMS STANDARDeGFR (CKD-EPI)non-race dependent- [facility] Medical CenterComment on above: Reported eGFR is based on the CKD-EPI 2020 equation that does not use a race coefficient. Glucose [Mass/Vol]340 mg/qJIsqj07 - 99 mg/dLSumma Health Wadsworth - Rittman Medical Center Interpretation and review of laboratory resultsAbnoAtrium Health Mercy Potassium [Moles/Vol]4.2 mmol/L3.5 - 5.0 mmol/[facility] Memorial Hospitalodium [Moles/Vol]134 mmol/L134 - 146 mmol/[facility] CampusUrea nitrogen [Mass/Vol]27 mg/dLHigh5 - 23 mg/dLSumma Health Wadsworth - Rittman Medical CenterCBC without diffon 89-12-1571Ogfumuboffu distribution width (RBC) [Ratio]13.2 %11.5 - 15.0 % [facility] Ritt[facility] Medical CenterHematocrit (Bld) [Volume fraction]36.6 %35 - 47 % [facility] Ritt[facility] Medical CenterHemoglobin (Bld) [Mass/Vol]12.6 g/dL11.7 - 15.5 g/dL [facility] Ritt[facility] Medical CenterMCH (RBC) [Entitic mass]29.0 pg27 - 34 [facility] HospitalMCHC (RBC) [Mass/Vol]34.3 g/dL32 - 36 g/dLSumma Health Wadsworth - Rittman Medical CenterMCV (RBC) [Entitic vol]85 fL80 - 100 [facility] MedicinePlatelet mean volume (Bld) [Entitic vol]7.3 fL7 - 12 [facility] MedicinePlatelets (Bld) [#/Vol]213 10*3/[facility] HospitalRBC (Bld) [#/Vol]4.33 10*6/[facility] HospitalWBC corrected for nucl RBC Auto (Bld) [#/Vol]5.0H[facility] Behavioral HealthcareGlucose Glucometer (BldC) [Mass/Vol]on 99-71-4026Lfwmkpu [Mass/Vol]363 mg/tQFufx07 - 99 mg/dLSumma Health Wadsworth - Rittman Medical CenterInterpretation and review of laboratory resultsAbnoGuthrie Troy Community HospitalGlucose [Mass/Vol]323 mg/xTEjrm67 - 99 mg/dLSumma Health Wadsworth - Ritt[facility] Medical Center Interpretation and review of laboratory resultsAbnoChildren's Hospital of Wisconsin– MilwaukeeGlucose [Mass/Vol]307 mg/oBIfxl70 - 99 mg/dLSumma Health Wadsworth - Rittman Medical CenterInterpretation and review of laboratory resultsAbnoGuthrie Troy Community HospitalGlucose [Mass/Vol]on 12-21-2023 Interpretation and review of laboratory resultsAbnoChildren's Hospital of Wisconsin– MilwaukeeGlucose random or fastingon [id number] [Mass/Vol] 409 mg/dLCritically high65 - 99 mg/dLSumma Health Wadsworth - Rittman Medical CenterMagnesiumon 49-59-6603Livskxeus [Mass/Vol]1.9 mg/dL1.8 - 2.6 mg/dLSumma Health Wadsworth - Rittman Medical CenterNo Panel Informationon 30-40-1329XunQyuasoGalion Community HospitalAcetone, (BetaHydroxybutyrate, Ketone) quantitative, serumon 12-81-4697Bvwp hydroxybutyrate [Moles/Vol]0.14 mmol/L0.02 - 0.27 mmol/LPrSalem Regional Medical Center Beta hydroxybutyrate [Moles/Vol]on 21-52-3389VcyEgqbtvGalion Community HospitalCBC auto differentialon 92-40-4398Gdaxtovrj (Bld) [#/Vol]0.0 10*3/uLSumma Health Wadsworth - [facility] CenterBasophils/100 WBC (Bld)0.5 %[facility] CenterEosinophils (Bld) [#/Vol]0.1 10*3/uLSumma Health Wadsworth - [facility]itt[facility] Medical CenterEosinophils/100 WBC (Bld)1.1 %[facility] CenterErythrocyte distribution width (RBC) [Ratio]13.6 %11.5 - 15.0 % [facility] CenterHematocrit (Bld) [Volume fraction]40.4 %35 - 47 % [facility] CenterHemoglobin (Bld) [Mass/Vol]13.2 g/dL11.7 - 15.5 g/dL [facility] CenterLymphocytes (Bld) [#/Vol]2.3 10*3/uLSumma Health Wadsworth - [facility] Medical CenterLymphocytes/100 WBC (Bld)37.6 %[facility] CenterMCH (RBC) [Entitic mass]28.8 pg27 - 34 [facility] HospitalMCHC (RBC) [Mass/Vol]32.8 g/dL32 - 36 g/dLSumma Health Wadsworth - [facility] Medical CenterMCV (RBC) [Entitic vol]88 fL80 - 100 [facility] MedicineMonocytes (Bld) [#/Vol]0.4 10*3/[facility] Monocytes/100 WBC (Bld)6.3 %[facility] CenterNeutrophils (Bld) [#/Vol]3.3 10*3/[facility] HospitalNeutrophils/100 WBC (Bld)54.5 %[facility] CenterPlatelet mean volume (Bld) [Entitic vol]7.6 fL7 - 12 [facility] SystemPlatelets (Bld) [#/Vol]227 10*3/[facility] HospitalRBC (Bld) [#/Vol] 4.60 10*6/[facility] HospitalWBC corrected for nucl RBC Auto (Bld) [#/Vol] 6.1PLifecare Hospital of PittsburghComprehensive metabolic panelon 21-37-2916Cgptlnn [Mass/Vol]3.4 g/dL3.2 - 5.3 g/dLSumma Health Wadsworth - [facility] Medical CenterALP [Catalytic activity/Vol]91 U/L39 - 130 U/[facility] SystemALT No additional P-5'-P [Catalytic activity/Vol]23 U/L0 - 31 U/[facility] SystemAnion gap [Moles/Vol]12 mmol/L5 - 15 mmol/[facility] SystemAST [Catalytic activity/Vol]17 U/L0 - 41 U/[facility] CampusBilirubin [Mass/Vol]0.4 mg/dL0.3 - 1.2 mg/dLMagruder Hospital SystemCalcium [Mass/Vol]9.0 mg/dL8.5 - 10.5 mg/dLSumma Health Wadsworth - [facility] Medical CenterChloride [Moles/Vol]87 mmol/LLow98 - 109 mmol/[facility] SystemCO2 [Moles/Vol]24 mmol/L22 - 32 mmol/L [facility] CenterCreatinine [Mass/Vol]1.17 mg/dLHigh0.40 - 1.00 mg/dL [facility] CenterComment on above:METHOD TRACEABLE TO IDMS STANDARDeGFR (CKD-EPI)non-race bykajlgqy25Fzf- PINChildren's Hospital Colorado Health SystemComment on above: Reported eGFR is based on the CKD-EPI 2020 equation that does not use a race coefficient. Glucose [Mass/Vol]928 mg/dLCritically high65 - 99 mg/dLSumma Health [facility] - [facility] Interpretation and review of laboratory resultsAbAmsterdam Memorial Hospital Potassium [Moles/Vol]4.7 mmol/L3.5 - 5.0 mmol/LProMednoland hospital anniston Health SystemProtein [Mass/Vol]7.5 g/dL6.0 - 8.0 g/dLCarolinas ContinueCARE Hospital at Kings Mountainodium [Moles/Vol]123 mmol/NTla105 - 146 mmol/[facility] CampusUrea nitrogen [Mass/Vol]31 mg/dL High5 - 23 mg/dLPaladin HealthcareD-Dimeron 14-22-6811Xuteso D-dimer DDU (PPP) [Mass/Vol]CJW Medical CenterComment on above: Results <255 ng/mL DDU: The presence of a VTE can safely be excluded with a negative D-Dimer result and Wells score. A negative result doesn't exclude the possibility of DIC. The test be repeated along with other diagnostic tests if the patient's symptoms persist or worsen. [email or web address] ECG 12 leadon 45-87-5800MKKBUURVGJZVTVDrpLhvwhq Health SystemFibrin D-dimer DDU (PPP) [Mass/Vol]on 90-13-7990MrpAdqcelGalion Community HospitalGlucose Glucometer (BldC) [Mass/Vol]on 55-94-8357Pjvgqgi [Mass/Vol]350 mg/jYByhx08 - 99 mg/dLSumma Health Wadsworth - [facility]itt[facility] Medical CenterInterpretation and review of laboratory resultsAbSelect Specialty Hospital - Pittsburgh UPMCGlucose [Mass/Vol]mg/dLCritically high65 - 99 mg/dLSumma Health Wadsworth - [facility]man Medical CenterComment on above:SEE LAB RESULTS FOR CONFIRMATION Interpretation and review of laboratory resultsAbAurora St. Luke's South [facility] Medical Center– CudahyGlucose [Mass/Vol]mg/dLCritically high65 - 99 mg/dL [facility] CenterComment on above:SEE LAB RESULTS FOR CONFIRMATION Interpretation and review of laboratory resultsAbnoChildren's Hospital of Wisconsin– MilwaukeeGlucose [Mass/Vol]mg/dLCritically high65 - 99 mg/dL [facility] CenterComment on above:SEE LAB RESULTS FOR CONFIRMATION Interpretation and review of laboratory resultsAbnoChildren's Hospital of Wisconsin– MilwaukeeNatriuretic peptide B [Mass/Vol]on 75-16-6404Rfyjjgkemue peptide B (Bld) [Mass/Vol]10 pg/mLNINF - 100.0 pg/mLHaven Behavioral HealthcarePOCT Nursing Urine Macroscopic UAon 06-05-3784Kfwnquvus Ql (U)NegativeNegative^NegativeSumma Health Wadsworth - [facility]man Medical CenterGlucose [Mass/Vol]mg/dL AbnormalNegative^Negative mg/dLSumma Health Wadsworth - [facility] Medical CenterHemoglobin Ql (U)Negative Negative^NegativeSumma Health Wadsworth - [facility]man Medical CenterInterpretation and review of laboratory resultsAbnoAtrium Health MercyKetones (U) [Mass/Vol]Negative Negative^Negative mg/dLSumma Health Wad[facility] - [facility] Medical CenterLeukocyte esterase Test strip Ql (U)NegativeNegative^NegativeMagruder Hospital SystemNitrite Ql (U)Positive AbnormalNegative^NegativeMagruder Hospital SystempH (U)5.0 [pH]5.0 - 8.5PGalion Community HospitalProtein Ql (U)NegativeNegative^Negative mg/dLCarolinas ContinueCARE Hospital at Kings Mountainpecific gravity (U) [Rel density]<=1.0051.003 - 1.035[facility] Medical CenterUrobilinogen Qn (U)0.2NINFPaladin Healthcare Troponin I, High Sensitivityon 15-39-0981Tjqbhdva I.cardiac High sensitivity method [Mass/Vol]ng/LNINF - 16 ng/LProMedica St. Anthony'S Hospital SystemTroponin I, High Sensitivity 1 Houron 04-61-0899Wtrlvpxr I.cardiac High sensitivity method [Mass/Vol]3 ng/LNINF - 16 ng/LProMedica St. Anthony'S Hospital SystemTroponin I.cardiac High sensitivity method [Mass/Vol]on 67-39-2722AzpMhwrvoAscension Eagle [facility] Memorial Hospital SystemXR Chest Single viewon 57-67-6257Cddohb view chest History:sob Difficulty breathing, shortness of [...] Aliya Gan MD on 12/20/2023 5:35 PM [facility] HospitalKinamik Data Integrity Mackin[facility] Straits HospitalRadiology Study observation (narrative)[facility] CenterXR Chest Single viewOrdered By: Aliya Gan on 37-86-9481MbwBogcodGalion Community Hospital Work Phone: Coding Summaryon 61-55-9535Qwrmwa SummaryMLBase 64 KujvwufiLFj7rMa+PGhlYWQ+JZ0YCPJwS83ggLStiC5eB6BEWLrGWkwsBEVQAOvHBrGutpSlKO8ltBKg ZXJu [file] ZTo (more content not included)...[facility] HospitalCoding Summaryon 00-06-2236Hdendn SummaryHTMLBase 64 TqsinrkwZKp6fJq+PGhlYWQ+OX7BHPHuU24hcYBxpD0iK5BXKDmRYiueBAZYYLwZTlAxbwSwTG0dlBLq ZXJu [file] ci1 (more content not included)...NormalSt. John Of God HospitalConsent Formson 15-79-9162Ixlqxam [id number]#1.00[facility] - CincinnatiDischarge Instructionson 74-86-3469Xezhnqxov Instructions [id number]#1.00[facility] Anesthesia Noteon 19-50-1546Qisvnesfhs NotePatient: CARISSA SANTOS Age: 43 years Sex: FEMALE : 1980 Associated Diagnoses: None Author: Ryan Abrams MD Postoperative Information Anesthetic utilized: Monitored anesthesia care. Assessment Anesthetic outcome No anesthetic complications noted. Plan Transfer/ Discharge: Patient can be discharged from PACU when criteria met. Condition good. [Electronically Signed on: 09/25/2023 08:49 EST] Ryan Abrams MD [Verified on: 09/25/2023 08:49 EST] Ryan Abrams MDGreen Cross HospitalAnesthesia NotePatient: CARISSA SANTOS Age: 43 years Sex: [...] history): All Problems Diabetes / SNOMED CT 995147060 / Confirmed HTN (hypertension) / SNOMED CT 9857087022 / Confirmed Histories Family History: No family history items have been selected or recorded. Procedure history: Genital warts (118918754). Cholecystectomy (20238047). Social History Electronic Cigarette/Vaping Assessment Electronic Cigarette [...] Oriented. Review / Management Laboratory Results Plan [place] [employer] Anesthesiologists#(ASA) physical status classification: Class [...] [Verified on: 09/25/2023 07:49 EST] Ryan Abrams MDGreen Cross HospitalInpatient Patient Summaryon 09-25-2023 [place] [address] Patient Discharge Instructions Name: ANGELA CARISSADARRYL TENA : 1980 Patient Address: [address] [place] [address] Primary Care Provider: Name: DIAZ DALTON After you are discharged if you find you have any questions, please, call [phone] ext [phone] to speak to a nurse. Discharge Diagnosis: [...] alcohol and/or drug addiction problems; contact the [facility] 27/03 Crisis Hotline -Text 4HXDX qv 109336. If you received any narcotics, sedation, or [...] business decisions or sign any legal documents [facility] would like to thank you for allowing us to assist you with your healthcare needs.The following includes patient education materials and information regarding your injury/illness. CARISSA SANTOS has been given the following list of follow-up instructions, prescriptions, andpatient education materials: Follow-up Instructions With: Address: When: [address] [place] [address] Business (1) 10/05/2023 11:00 AM [...] Contact your doctor pr (more content not included)...[facility] Intraoperative Recordon 87-62-7997LVGM Intraoperative RecordMAGR Intra-Op Record Summary Primary Physician: Gary Miller DO Finalized Date/Time: 09/25/23 08:48:16 Pt. Name: CARISSA SANTOS/Sex: 1980 FEMALE Med Rec #: [id number] Physician: Gary Miller DO Financial #: [id number] Pt. Type: D Room/Bed: / Admit/Disch: 09/25/23 [...] Andrew DO Role Performed Surgeon - Primary Post Partum Nurse Anesthesiologist of Record Time In 09/25/23 08:10:00 09/25/23 08:10:00 09/25/23 08:10:00 Time Out 09/25/23 08:38:00 09/25/23 08:41:00 09/25/23 08:41:00 Procedure Carpal Tunnel Carpal Tunnel Carpal Tunnel Release(Left) Release(Left) Release(Left) Last Modified By: Allyson Alfred RN, Lauren L RN Wheeler, Lauren L RN 09/25/23 08:43:33 09/25/23 08:43:21 09/25/23 08:43:21 Entry 4 Entry 5 Case Attendee Dayna Roberson CST, CST, Kelly CST CSFA Role Performed Quality Control Checker Scrub Relief Time In 09/25/23 08:10:00 09/25/23 [...] Primary Procedure Yes Primary Surgeon Gary Miller Modifiers Left Terrance ARENAS Surgeon Comment Carpal Tunnel Release Start 09/25/23 [...] Lauren L RN, Ryan Abrams MD, Da CINDER BLOCK MASON, Dayna JJ CSFA, Mila Wyatt CINDER BLOCK MASON Last Modified By: Allyson Alfred RN 09/25/23 [...] Uncrossed? Yes Press Points (more content not included)...[facility] Postoperative Recordon 22-00-6064UPKU Postoperative RecordMAGR Phase II Record Summary Primary Physician: Gary Miller DO Finalized Date/Time: 09/25/23 10:39:28 Pt. Name: CARISSA SANTOS/Sex: 1980 FEMALE Med Rec #: [id number] Physician: Gary Miller DO Financial #: [id number] Pt. Type: D Room/Bed: / Admit/Disch: 09/25/23 [...] Signatures Signed By: Jennyfer Gresham RN 09/25/23 10:39NoGreene Memorial Hospital Preoperative Recordon 55-43-8606TZVA Preoperative RecordMAGR Pre-Op Record Summary Primary Physician: Gary Miller DO Finalized Date/Time: 09/25/23 08:48:38 Pt. Name: CARISSA SANTOSO.B./Sex: 1980 FEMALE Med Rec #: [id number] Physician: Gary Miller DO Financial #: [id number] Pt. Type: D Room/Bed: / Admit/Disch: 09/25/23 [...] Signatures Signed By: Allyson Alfred RN 09/25/23 08:48Green Cross HospitalPatient Handouton 46-58-7734Fnxgvnk HandoutDR. PAUL'S POST OPERATIVE CARPAL TUNNEL INSTRUCTIONS: SURGEON'S WRITTEN INSTRUCTIONS: 1. Keep your hand elevated above your elbow for the first 24 hours after surgery. 2. Wiggle your fingers frequently while awake. 3. DO NOT lift heavy objects or aircraft engine cylinder mechanic forcefully with your hand. 4. Change your [...] or concerns, please call the office at [phone]. 7. Follow up as scheduled.[facility] Hospitalancy Test Serum 1on 33-55-9569Ssxz Serum Internal ControlOKGreen Cross HospitalComment on above: Performed By: #### [id number] ####[facility] (DEFAULT)[address] [place] [address] 65430Tveemqlte Test Serum QualNegativeGreen Cross HospitalComment on above:Performed By: #### [id number] ####[facility] (DEFAULT)[address] [place] [address] 88932Abzbyfnr Note - Nurseon 25-31-6890Fqjkgjwt Note - NurseSpoke with pt and informed her to be here at 0630 and NPO after MN, she verbalizes understanding. [Electronically Signed on: 09/22/2023 09:47 EST] Kalyani Ortiz RN [Verified on: 09/22/2023 09:47 EST] Kalyani Ortiz [facility]ess [facility] - Nurseon 09-15-2023 Progress Note - NurseDr Lares reviews pt chart and no new orders were received. [Electronically Signed on: 09/15/2023 11:46 EST] Kalyani Ortiz RN [Verified on: 09/15/2023 11:46 EST] Kalyani Ortiz RNCleveland Clinicess Note - Nurseon 09-14-2023 Progress Note - NursePAT review done per Dr. Lares, order received. [Electronically Signed on: 09/14/2023 14:38 EST] Katelyn Moon RN [Verified on: 09/14/2023 14:38 EST] Katelyn Moon RNNormalKettering Health Miamisburg Hospital.Auto Diff 1on 56-99-5826Rwlv [place] %4 % Normal1-12Magruder HospitalComment on above:Performed By: #### [id number], [id number], [id number] ####[facility] (DEFAULT)[address] [place] [address] 17541Gymd Abs#0.0 w02Lcrbaw4.0-0.2Magruder HospitalComment on above: Performed By: #### [id number], [id number], [id number] ####[facility] (DEFAULT)[address] [place] [address] 08686Xssnvcfew/100 WBC (Bld)0.8 % Normal0.2-2.0[facility] HospitalComment on above:Performed By: #### [id number], [id number], [id number] ####[facility] (DEFAULT)[address] [place] [address] 35871Jna Abs#0.1 w06Hlztic7.0-0.4[facility] HospitalComment on above: Performed By: #### [id number], [id number], [id number] ####[facility] (DEFAULT)[address] [place] [address] 77524Mfsghwypprh/100 WBC (Bld)1.2 % Normal0.9-4.0[facility] HospitalComment on above:Performed By: #### [id number], [id number], [id number] ####[facility] (DEFAULT)[address] [place] [address] 48378Tqcqh Abs#2.0 l17Foudqy5.3-2.9[facility] HospitalComment on above:Performed By: #### [id number], [id number], [id number] ####[facility] (DEFAULT)[address] [place] [address] 88947Gnyiwysmsna/100 WBC (Bld)40 % Wmylfx68-72Dsixiwcd HospitalComment on above:Performed By: #### [id number], [id number], [id number] ####[facility] (DEFAULT)[address] [place] [address] 61953Ljvo Abs#0.2 m64Nqrdtw4.0-0.8[facility] HospitalComment on above: Performed By: #### [id number], [id number], [id number] ####[facility] (DEFAULT)[address] [place] [address] 28526Ytvb Abs#2.7 u38Fcrqxn6.5-9.2 [facility] HospitalComment on above:Performed By: #### [id number], [id number], [id number] ####[facility] (DEFAULT)[address] [place] [address] 31466 Neutrophils/100 WBC (Bld)54 %Kqgxsd04-61Qhlhvmbv HospitalComment on above: Performed By: #### [id number], [id number], [id number] ####[facility] (DEFAULT)[address] [place] [address] 21888JWC Standardon 89-53-5765iABZ Non AA>60Invalid Interpretation CodeKettering Health Miamisburg HospitalComment on above:Performed By: #### [id number], [id number], [id number] ####[facility] (DEFAULT)[address] [place] [address] 92743dNYI AA>60Invalid Interpretation CodeKettering Health Miamisburg HospitalComment on above:Performed By: #### [id number], [id number], [id number] ####[facility] (DEFAULT)[address] [place] [address] 96022Zqzag gap [Moles/Vol]10.4 mmol/LNormal5.0-19.0[facility] HospitalComment on above:Performed By: #### [id number], [id number], [id number] ####[facility] (DEFAULT)[address] [place] [address] 32426Hawnjba [Mass/Vol]8.9 mg/dLNormal8.9-10.3[facility] HospitalComment on above:Performed By: #### [id number], [id number], [id number] ####[facility] (DEFAULT)[address] [place] [address] 33129Qfecjqvs [Moles/Vol]102 mmol/SDwjleb228-472Rgzonncw HospitalComment on above:Performed By: #### [id number], [id number], [id number] ####[facility] (DEFAULT)[address] [place] [address] 14299GC1 [Moles/Vol]27 mmol/QVihgsh60-02Zfnhnlzj HospitalComment on above:Performed By: #### [id number], [id number], [id number] ####[facility] (DEFAULT)[address] [place] [address] 44441Xtrmovdhwt [Mass/Vol]0.76 mg/dLNormal0.60-1.30[facility] HospitalComment on above:Performed By: #### [id number], [id number], [id number] ####[facility] (DEFAULT)[address] [place] [address] 32621Hvytixo [Mass/Vol]276.0 mg/fBVktk35.0-118.0[facility] HospitalComment on above:Performed By: #### [id number], [id number], [id number] ####[facility] (DEFAULT)[address] [place] [address] 37812Axjcjcefos 282 mOsm/LInvalid Interpretation CodeKettering Health Miamisburg HospitalComment on above:Performed By: #### [id number], [id number], [id number] ####[facility] (DEFAULT)[address] [place] [address] 84450Mdaiidylj [Moles/Vol]4.4 mmol/LNormal3.6-5.1 [facility] HospitalComment on above:Performed By: #### [id number], [id number], [id number] ####[facility] (DEFAULT)[address] [place] [address] 75813 Sodium [Moles/Vol]135.0 mmol/ZYcs736.0-144.0[facility] HospitalComment on above: Performed By: #### [id number], [id number], [id number] ####[facility] (DEFAULT)[address] [place] [address] 63752Mvry nitrogen [Mass/Vol]18 mg/dL Normal8-26[facility] HospitalComment on above:Performed By: #### [id number], [id number], [id number] ####[facility] (DEFAULT)[address] [place] [address] 86718Hzpm nitrogen/Creatinine [Mass ratio]23.6 mg/mgHigh4.6-16.2 [facility] HospitalComment on above:Performed By: #### [id number], [id number], [id number] ####[facility] (DEFAULT)[address] [place] [address] 82272 CBC w/ Auto Diffon 12-44-9949Aohwxtkiyvf distribution width (RBC) [Ratio]13.5 % Xozfiq38.5-15.0[facility] HospitalComment on above:Performed By: #### [id number], [id number], [id number] #### [facility] (DEFAULT) [address] [place] [address] 30203Yjqnguwgps (Bld) [Volume fraction]42.9 %High33.7-40.4 [facility] HospitalComment on above:Performed By: #### [id number], [id number], [id number] #### [facility] (DEFAULT) [address] [place] [address] 96934Bcgyxumpsa (Bld) [Mass/Vol]14.1 g/zOUubjhu16.3-15.9 [facility] HospitalComment on above:Performed By: #### [id number], [id number], [id number] #### [facility] (DEFAULT) [address] [place] [address] 67551Xqr Diff?AutoInvalid Interpretation CodeSt. John Of God Hospital Comment on above:Performed By: #### [id number], [id number], [id number] #### [facility] (DEFAULT) [address] [place] [address] 66202GJJ (RBC) [Entitic mass]28 nhWebbvv93-81Ubtrkeot Hospital Comment on above:Performed By: #### [id number], [id number], [id number] #### [facility] (DEFAULT) [address] [place] [address] 15945WBDD (RBC) [Mass/Vol]33 g/yEGzpjdm68-17Sgtjwcjr Hospital Comment on above:Performed By: #### [id number], [id number], [id number] #### [facility] (DEFAULT) [address] [place] [address] 11166FOK (RBC) [Entitic vol]87 gOZflxte27-358Zvoabwmt Hospital Comment on above:Performed By: #### [id number], [id number], [id number] #### [facility] (DEFAULT) [address] [place] [address] 07576Ewdjdvlf815 j50Vgqgan238-230Sphwblfn HospitalComment on above:Performed By: #### 6968168, [id number], [id number] #### [facility] (DEFAULT) [address] [place] [address] 68120Oummzcag mean volume (Bld) [Entitic vol]6.9 fLNormal 6.3-10.2MCity HospitalComment on above:Performed By: #### [id number], [id number], [id number] #### [facility] (DEFAULT) [address] [place] [address] 85033FCR2.[address]vkm5.70-5.30[facility] HospitalComment on above:Performed By: #### [id number], [id number], [id number] #### [facility] (DEFAULT) [address] [place], [place] [address]RDM7.1 d02Hxfagu8.5-10.5[facility] HospitalComment on above: Performed By: #### [id number], [id number], [id number] #### [facility] (DEFAULT) [address] [place], [place] [address]MECC HCG QUALon 73-42-1607ETGDFBEGS, QUALNegativeNormal NEGATIVEThe Victoria HospitalComment on above:Performed By: #### PREG #### [facility] [address] [place], [place] [address] Dr. Dipika RappUS PELVIS AND TRANSVAGon 95-98-8651GU PELVIS AND TRANSVAG EXAMINATION: US PELVIS AND [...] Electronically authenticated by: HARVINDER DELEON Date: 2022-12-26 14:02[facility] CenterOffice Visiton 33-51-5690Vozfol-up [id number] Carissa Santos 1980 F Date Provider Department Center 12/07/2022 ONEYDA GUERRA MPORTHO Family History Problem Relation Age of Onset Diabetes Mother Leukemia Father Family Status - Relation Status Age at Mother Father Level of Service:26756 [place] POSTOP FOLLOW UP VISIT RELATED TO ORIGINAL PX (GC) Reason for Visit and Comments: Post-op [483][facility]UM[facility] Hospitalon 97-57-1784YZR&P reviewed. The patient was examined and there are no changes to the H&P.Normal [facility] HospitalHPH&P reviewed. The patient was examined and there are no changes to the H&P.[facility] NURSNOTEon 19-36-0599XRFAQIAYNhixiuep operative hand warm to touch, and sorin at the bedside to evaluate. Okay for pt to go home, Good capillary refill, soft no swelling noted. [facility] CenterOPNOTOasis Behavioral Health Hospital 39-03-9431SBHOFDKBOBGTAMZLI SURGERY OPERATIVE REPORT Date of Surgery: 11/21/2022 Surgeon: Robson Paz MD Screw Machine Operator: Sorin Farooq MD Preoperative Diagnosis: Left cubital [...] entirety of the procedure(s). Robson Paz MDNormalUniversity ProMedica Memorial HospitalPOCT GLUCOSE METER UNSOLICITED RESULTSon 85-29-2925Urgpgsr [Mass/Vol]74 mg/sVVwrkov13-724CnehrwwksiMercy Health Willard HospitalComment on above:Result Comment: [id number] By: #### [id number] #### [facility] ([facility]) [address] [place], [place] [address]Lxjlgsw [Mass/Vol]53 mg/hPAgx37-780TyswbgnlzxOhioHealth Pickerington Methodist HospitalComment on above:Result Comment: [id number] By: #### [id number] ####[facility] ([facility])[address] [place], [place] [address]Glluasm [Mass/Vol]73 mg/yMAszqna53-289RzfurclbqpMercy Health Willard HospitalComment on above:Result Comment: [id number] By: #### [id number] ####[facility] ([facility])[address] [place], [place] [address]Revduen [Mass/Vol]44 mg/dLInvalid Interpretation [id number] Health Willard HospitalComment on above: Result Comment: [id number] Critical Value NotedPerformed By: #### [id number] ####[facility] ([facility])[address] [place], [place] [address]Obkqllw [Mass/Vol]53 mg/jRLjl41-605 [facility] HospitalComment on above:Result Comment: [email or web address] Performed By: #### [id number] ####[facility] ([facility])[address] [place], [place] [address]STmt [id number] Attestation signed by Robson Paz MD at [...] Santos is a 42 y.o. year old efxc-frgk-bzaoeohx female presenting for evaluation of left hand [...] Past Medical History: Diagnosis Date Diabetes mellitus ([facility] Objective General: [...] finger: normal A1 carina and AROM Strength: aircraft engine cylinder mechanic 5/5, thumb 5/5, interossei 5/5 Sensation: intact [...] surgical intervention - Instructed patient that our regional vice president surgical sales reach out regarding future surgical date - Surgery will be performed under regional anesthesia -Return to clinic for surgical intervention -Call the orthopedic office any questions or concerns Michael Ward MD Orthopedic Surgery Resident Physician Pager: [phone] 11/04/22 12:35 PM By using the attestations [...] may be an additional personal documentation from me.NormalUnMercy Health Willard HospitalOffice Visiton [id number]-up [id number] Carissa Santos 1980 F Date Provider Department Center 11/04/2022 Juhi-ONEYDA PAZ ORTHO MPORTHO Family History Problem Relation Age of Onset Diabetes Mother Leukemia Father Family Status - Relation Status Age at Mother Father Level of Service:63687 [place] OFFICE/OUTPATIENT ESTABLISHED LOW MDM 20-29 MIN Reason for Visit and Comments: Pain [136]NormalUnMercy Health Willard HospitalFSHon 99-22-4248YSQ77.6 mIU/mLNOhioHealth Grady Memorial HospitalComment on above:Result Comment: Adult Female: Follicular phase 3.5 - 12.5 Ovulation phase 4.7 - 21.5 Luteal phase 1.7 - 7.7 Postmenopausal 25.8 - 134.8Performed By: #### LBCFSH #### [facility] [address] [address] [address] Dipika RappLUTEINIZING HORMONE (LH)on 81-14-0069PO44.9 mIU/mLNormalThe [facility] HospitalComment on above:Result Comment: Adult Female: Follicular phase 2.4 - 12.6 Ovulation phase 14.0 - 95.6 Luteal phase 1.0 - 11.4 Postmenopausal 7.7 - 58.5Performed By: #### LBCLH #### [facility] [address] [place] [address] Dr. Dipika RappPROLACTINon 67-67-1133Dyqmbmjsv9.6 ng/mLCritically low4.8-23.3The [facility] HospitalComment on above:Performed By: #### PROLAC ####[facility] [address] [address]Dr. Dipika RappCBC AUTO DIFFon 50-03-3749TRZT #0.0 103/ulNormal0.0-0.1The [facility] on above:Performed By: #### CBC ####[facility] [address] [address]Dr.Dipika ChangBasophils/100 WBC (Bld)0.4 %Normal 0.2-2.0The [facility] HospitalComment on above:Performed By: #### CBC ####[facility] [address] [address]Dr.Vanessalan ChangEO # 0.1 103/ulNormal0.0-0.7[facility] on above:Performed By: #### CBC ####[facility] [address] [address]Dr. Dipika ChangEosinophils/100 WBC (Bld)0.8 %Critically low0.9-7.0The [facility] HospitalComment on above:Performed By: #### CBC ####[facility] [address] [address]Dr.Dipika ChangErythrocyte distribution width (RBC) [Ratio]12.5 %Mvxhrx22.0-15.0The [facility] Comment on above:Performed By: #### CBC ####[facility] [address] [place], [place] [address]Dr.Dipika ChangHematocrit (Bld) [Volume fraction]46.2 %Puldoz95.0-48.0The [facility] HospitalComment on above:Performed By: #### CBC ####[facility] [address] [place], [place] [address]Dr.Dipika ChangHemoglobin (Bld) [Mass/Vol]14.9 g/mUWnvamg50.0-16.0The [facility] HospitalComment on above:Performed By: #### CBC ####[facility] [address]okgsc[address] [place], [place] [address]Dr.Dipika ChangIG #0.04 10e3/ulCritically high0.00-0.03The [facility] HospitalComment on above:Performed By: #### CBC ####[facility] Frcemiscqv[address] [place], [place] [address]Dr.Dipika ChangIG %0.5 %Normal0.0-0.5The [facility] HospitalComment on above: Performed By: #### CBC ####[facility] R[address]slndxd[address] [place], [place] [address]Dr.Dipika ChangLYMPH #2.8 103/ulNormal1.2-3.8The [facility] HospitalComment on above:Performed By: #### CBC ####[facility] Dwsljzvuis[address] [place], [place] [address]Dr.Dipika ChangLymphocytes/100 WBC (Bld)34.7 %Mdhdub27.5-60.0The [facility] HospitalComment on above:Performed By: #### CBC ####[facility] [address]mziewm[address] [place], [place] [address]Dr.Dipika ChangMANUAL DIFF REQNONormalThe [facility] HospitalComment on above:Performed By: #### CBC ####[facility] [address] [address]Dr.Dipika RappH (RBC) [Entitic mass]28.3 pgNormal 26.7-34.0The [facility] HospitalComment on above:Performed By: #### CBC ####[facility] Yekldz[address] [place], [place] [address]Dr. Dipika RappHC (RBC) [Mass/Vol]32.3 g/gMSkeyis87.9-35.2The [facility] Comment on above:Performed By: #### CBC ####[facility] [address] [place], [place] [address]Dr.Dipika RappV (RBC) [Entitic vol]87.7 fL Vyqqld74.0-99.0The [facility] HospitalComment on above:Performed By: #### CBC ####[facility] Mzdivx[address] [place], [place] [address]Dr. Dipika RappMONO #0.4 103/ulNormal0.3-0.8The [facility] HospitalComment on above: Performed By: #### CBC ####[facility] Xpog[address] [place], [place] [address]DrElin RappMonocytes/100 WBC (Bld)5.0 %Normal 1.7-12.0The [facility] HospitalComment on above:Performed By: #### CBC ####[facility] Vyypshsx[address] [place], [place] [address]Dr. Dipika RappNEUT #4.7 103/ulNormal1.4-6.5The [facility] HospitalComment on above: Performed By: #### CBC ####[facility] [address]svdvnsrs[address] [place], [place] [address]Dr.Dipika RappNeutrophils/100 WBC (Bld)58.6 %Normal 43.0-75.0The [facility] HospitalComment on above:Performed By: #### CBC ####[facility] [address]rtfset[address] [place], [place] [address]DrBrian RappPlatelet mean volume (Bld) [Entitic vol]9.1 fLCritically low9.5-13.5 The [facility] HospitalComment on above:Performed By: #### CBC ####[facility] [address] [address]Dr.Dipika RappPLT194 103/nvZwyngp418-706Lav [facility] HospitalComment on above:Performed By: #### CBC ####[facility] [address] [address]Dr. Dipika RappRBC5.27 106/ulNormal4.20-5.40The [facility] HospitalComment on above: Performed By: #### CBC ####[facility] [address] [address]Dr.Dipika RappWBC8.0 103/ulNormal4.0-11.0The [facility] HospitalComment on above:Performed By: #### CBC ####[facility] [address] [address]Dr.Dipika RappFREE T4on 61-41-8926Ysdl T4 [Mass/Vol]1.04 ng/dLNormal0.76-1.46[facility] Comment on above:Performed By: #### FT4 #### [facility] [address] [place] [address] Dr. Dipika Curtis 03-30-0933SLR3.420 uIU/mLNormal0.358-3.740[facility] Memorial HospitalComment on above:Performed By: #### TSH #### [facility] [address] [place] [address] Dr. Dipika Mann ACOG PANEL 2: 30 to 65on 07-25-2022..NormalThe [facility] HospitalCommymichigan medical center on above:Result Comment: Performed at: WBPerformed By: #### [id number] #### [facility] [address] [place] [address] Dr. Dipika Adame Gdln ACOG Pwduviy87-63OxtvctJqj [facility] HospitalComment on above:Performed By: #### [id number] #### [facility] [address] [place] [address] Dr. Dipika RappDIAGNOSIS:CommentDayton Children's Hospital on above: Result Comment: NEGATIVE FOR INTRAEPITHELIAL LESION OR MALIGNANCY. THIS SPECIMEN WAS RESCREENED PART OF OUR HUMAN RESOURCE MANAGER PROGRAM. Performed at: WBPerformed By: #### [id number] #### [facility] [address] [place] [address] Dr. Dipika RappHPV AptimaNegativeNormalNegativeThe [facility] on above:Result Comment: This nucleic acid amplification test detects fourteen high-risk HPV types (16,18,31,33,35,39,45,51,52,56,58,59,66,68) without differentiation. Performed at: =GPerformed By: #### [id number] #### [facility] [address] [place] [address] Dr. Dipika Jorgensen Genotype ReflexCommentNoOhioHealth Doctors Hospital on above:Result Comment: Criteria not met, HPV Genotype not performed. Performed at: WBPerformed By: #### [id number] #### [facility] [address] [place] [address] Dr. Dipika RappMethodology:CommentDayton Children's Hospital on above: Result Comment: This liquid based ThinPrep(R) pap test was screened with the use of an image guided system. Performed at: WBPerformed By: #### [id number] #### [facility] [address] [place] [address] Dr. Dipika RappNote:CommentNoOhioHealth Doctors Hospital on above:Result Comment: The Pap smear is a screening test designed to aid in the detection of premalignant and malignant conditions of the uterine cervix. It is not a diagnostic procedure and should not be used as the sole means of detecting cervical cancer. Both false-positive and false-negative reports do occur. . Performed at: WBPerformed By: #### [id number] #### [facility] [address] [place] [address] Dr. Dipika RappPerformed by:CommentNoOhioHealth Doctors Hospital on above: Result Comment: Dayna Zelaya, Service Observer (ASCP) Performed at: WBPerformed By: #### [id number] #### [facility] [address] [address] [address] Dipika Rapp reviewed by:CommentDayton Children's Hospital on above:Result Comment: Amada Burger, Supervisory Service Observer (ASCP) Performed at: WBPerformed By: #### [id number] #### [facility] [address] [address] [address] Dipika RappSpecimen adequacy:CommentDayton Children's Hospital on above:Result Comment: Satisfactory for evaluation. Endocervical and/or squamous metaplastic cells (endocervical component) are present. Performed at: WBPerformed By: #### [id number] #### [facility] [address] [address] [address] Dipika Rapp MAMM SCREEN 3D DINAH CADon 50-64-8942IY MAMM SCREEN 3D DINAH CAD Patient: CARISSA SANTOS Exam Date: 06/22/2022 : 1980 Gender:F Ordering : DR FELIZ BENZ . Admission #: [id number] Family : Order #: [id number] CLICK HERE TO VIEW EXAM RADIOLOGY REPORT [...] Treatments None Family Cancers None LOCATION: [facility] BREAST COMPOSITION: Scattered areas fibroglandular density. [...] by: Harvinder Deleon M.D. on 06/22/2022 at 15:52[facility] Medical CenterGLYCOHEMOGLOBIN A1Con [id number] RECOMMENDATIONSEE BELOWKettering Health Behavioral Medical CenterComment on above:Result Comment: ADA RECOMMENDED LIMIT 4.0 - 6.0 ADA THERAPEUTIC TARGET < 7.0 ACTION SUGGESTED > 7.0Performed By: #### A1C #### [facility] [address] [address] [address] Dipika RappGlucose [Mass/Vol]163 mg/dLKettering Health Behavioral Medical CenterComment on above:Performed By: #### A1C #### [facility] [address] [address] [address] Dipika RappHbA1c (Bld) [Mass fraction]7.3 %Critically high4.5-6.2The [facility] HospitalComment on above:Performed By: #### A1C #### [facility] [address] [address] [address] Dipika Monroy AUTO DIFFon 38-22-0324TSST #0.0 103/ulNormal0.0-0.1The [facility] HospitalComment on above:Performed By: #### CBC ####[facility] [address] [address]Dr.Dipika ChangBasophils/100 WBC (Bld)0.3 %Normal0.2-2.0The [facility] HospitalComment on above:Performed By: #### CBC ####[facility] [address] [address]DrElin ChangEO #0.2 103/ulNormal0.0-0.7The [facility] HospitalComment on above:Performed By: #### CBC ####[facility] [address] [address]Dr.Dipika ChangEosinophils/100 WBC (Bld)1.7 %Normal 0.9-7.0The [facility] HospitalComment on above:Performed By: #### CBC ####[facility] [address] [address]Dr.Vanessazackary Rapp Erythrocyte distribution width (RBC) [Ratio]12.0 %Zwbgzw39.0-15.0The [facility] HospitalComment on above:Performed By: #### CBC ####[facility] H[address]pqtnh[address] [place], [place] [address]Dr.Vanessazackary DionteHematocrit (Bld) [Volume fraction]43.0 %Kbvppe65.0-48.0The [facility] HospitalComment on above:Performed By: #### CBC ####[facility] [address]ondyaaf[address] [place], [place] [address]Dr.Vanessazackary RappHemoglobin (Bld) [Mass/Vol]13.6 g/dL Tgjzvc08.0-16.0The [facility] HospitalComment on above:Performed By: #### CBC ####[facility] [address]vnlygknxi[address] [place], [place] [address]Dr. Dipika RappIG #0.02 10e3/ulNormal0.00-0.03The [facility] HospitalComment on above: Performed By: #### CBC ####[facility] M[address]afqzujx[address] [place], [place] [address]Dr.Dipika RappIG %0.2 %Normal0.0-0.5The [facility] HospitalComment on above:Performed By: #### CBC ####[facility] Toqbiaoryo[address] [place], [place] [address]Dr.Dipika RappLYMPH #3.5 103/ulNormal1.2-3.8The [facility] HospitalComment on above:Performed By: #### CBC ####[facility] [address]gnkjwgn[address] [place], [place] [address]Dr. Dipika RappLymphocytes/100 WBC (Bld)39.2 %Xdbycj01.5-60.0The [facility] Comment on above:Performed By: #### CBC ####[facility] [address]nt[address] [place], [place] [address]Dr.Dipika RappMANUAL DIFF REQNONormalThe [facility] HospitalComment on above:Performed By: #### CBC ####[facility] [address] [address]Dr.Dipika RappH (RBC) [Entitic mass]28.6 eoFvgisq61.7-34.0The [facility] HospitalComment on above: Performed By: #### CBC ####[facility] [address]xhjotnzl[address] [place], [place] [address]Dr.Dipika DionteHC (RBC) [Mass/Vol]31.6 g/dLNormal 29.9-35.2The [facility] HospitalComment on above:Performed By: #### CBC ####[facility] Ycqmpomxxz[address] [place], [place] [address]Dr. Dipika RappV (RBC) [Entitic vol]90.3 cMGbeqog87.0-99.0The [facility] Comment on above:Performed By: #### CBC ####[facility] [address]ajbnujem[address] [place], [place] [address]Dr.Vanessazackary DionteMONO #0.5 103/ulNormal0.3-0.8 The [facility] HospitalComment on above:Performed By: #### CBC ####[facility] [address]frc[address] [place], [place] [address]Dr.Vanessazackary Rapp Monocytes/100 WBC (Bld)5.8 %Normal1.7-12.0The [facility] HospitalComment on above: Performed By: #### CBC ####[facility] Hogpkrmgzn[address] [place], [place] [address]Dr.Dipika RappNEUT #4.7 103/ulNormal1.4-6.5The [facility] HospitalComment on above:Performed By: #### CBC ####[facility] [address]fqjybht[address] [place], [place] [address]Dr.Vanessazackary RappNeutrophils/100 WBC (Bld)52.8 %Lvqgmb10.0-75.0The [facility] HospitalComment on above:Performed By: #### CBC ####[facility] Rxysdvlgzj[address] [place], [place] [address]Dr.Dipika DiontePlatelet mean volume (Bld) [Entitic vol]9.3 fLCritically low 9.5-13.5The [facility] HospitalComment on above:Performed By: #### CBC ####[facility] [address] [address]DrBrian RappPLT219 103/vaSmvomg447-847Rvu [facility] HospitalComment on above: Performed By: #### CBC ####[facility] [address] [address]DrElin RappRBC4.76 106/ulNormal4.20-5.40The [facility] HospitalComment on above:Performed By: #### CBC ####[facility] [address] [address]DrElin RappWBC8.8 103/ul Normal4.0-11.0The [facility] HospitalComment on above:Performed By: #### CBC ####[facility] [address]hwtmqgcx[address] [place], [place] [address]Dr. Dipika RappNORTHEAST GEOR[facility] BRASELTON GLUCOSEon 75-93-1103Jlflaer [Mass/Vol]51 mg/dL Critically jtg05-888Waz [facility] HospitalComment on above:Performed By: #### POCGLUC #### [facility] [address] [place] [address] Dr. Dipika Ramirez 14(COMP METB)on 58-20-6634Gqoipug [Mass/Vol]3.1 g/dL Critically low3.4-5.0The [facility] HospitalComment on above:Performed By: #### CMP #### [facility] [address] [place] [address] Dr. Dipika RappAlbumin/Globulin [Mass ratio]0.8 {ratio}NormalThe [facility] HospitalComment on above:Performed By: #### CMP #### [facility] [address] [place] [address] Dr. Dipika TiwariP [Catalytic activity/Vol]86 U/SEicuei60-078Gqq [facility] HospitalComment on above:Performed By: #### CMP #### [facility] [address] [place] [address] Dr. Dipika Zendejas [Catalytic activity/Vol]39 U/UCdlguv53-88Axz [facility] HospitalComment on above:Performed By: #### CMP #### [facility] [address] [place] [address] Dr. Dipika Causeyon gap [Moles/Vol]10.8 mmol/LNormalNorwalk Memorial Hospital Comment on above:Performed By: #### CMP #### [facility] [address] [address] [address] Dipika RappAST [Catalytic activity/Vol]11 U/LCritically amc84-47Lnh [facility] HospitalComment on above:Performed By: #### CMP #### [facility] [address] [place] [address] Dr. Dipika RappBilirubin [Mass/Vol]0.1 mg/dLCritically low0.2-1.0The [facility] HospitalComment on above:Performed By: #### CMP #### [facility] [address] [place] [address] Dr. Dipika RappCalcium [Mass/Vol]9.0 mg/dLNormal8.5-10.1[facility] Comment on above:Performed By: #### CMP #### [facility] [address] [place] [address] Dr. Dipika RappChloride [Moles/Vol]104 mmol/QZblyzb43-313VwxNorwalk Memorial Hospital Comment on above:Performed By: #### CMP #### [facility] [address] [place] [address] Dr. Dipika RappCO2 [Moles/Vol]29.4 mmol/ZRmfuyy34.0-32.0The [facility] Comment on above:Performed By: #### CMP #### [facility] [address] [place] [address] Dr. Dipika RappCreatinine [Mass/Vol]0.67 mg/dLNormal0.55-1.02The [facility] HospitalComment on above:Performed By: #### CMP #### [facility] [address] [place] [address] Dr. Dipika TongGFR-AF NORWEGIAN>60Normal>=60The [facility] HospitalComment on above:Performed By: #### CMP #### [facility] [address] [address] [address] Dipika TongGFR-NON AF NORWEGIAN>60Normal>=60[facility] HospitalComment on above:Performed By: #### CMP #### [facility] [address] [address] [address] Dipika RappGlobulin (S) [Mass/Vol]3.9 g/dLNoSycamore Medical CenterComment on above:Performed By: #### CMP #### [facility] [address] [address] [address] Dipika RappGlucose [Mass/Vol]142 mg/dLCritically sbbw94-655Ftp [facility] HospitalComment on above:Performed By: #### CMP #### [facility] [address] [address] [address] Dipika RappPotassium [Moles/Vol]4.2 mmol/LNormal3.5-5.1[facility] Comment on above:Performed By: #### CMP #### [facility] [address] [place] [address] Dr. Dipika RappProtein [Mass/Vol]7.0 g/dLNormal6.4-8.2[facility] Comment on above:Performed By: #### CMP #### [facility] [address] [address] [address] Dipika RappSodium [Moles/Vol]140 mmol/FRhzbus602-158QmxNorwalk Memorial Hospital Comment on above:Performed By: #### CMP #### [facility] [address] [address] [address] Dipika RappUrea nitrogen [Mass/Vol]22.0 mg/dLCritically high7.0-18.0The [facility] HospitalComment on above:Performed By: #### CMP #### [facility] [address] [address] [address] Dipika RappUrea nitrogen/Creatinine [Mass ratio]32.8 mg/mgNoNovant Health Kernersville Medical Centerevue HospitalComment on above:Performed By: #### CMP #### [facility] [address] [address] [address] Dipika Kaur,Aerobe/Anaerobeon 88-80-9636Etjt,Aerobe/AnaerobeSpecimen Description .ULCER RT ARM Special Requests NOT REPORTED Direct Exam FEW NEUTROPHILS NO BACTERIA SEEN Culture NO GROWTH 5 DAYS Report Status FINAL 10/06/2021[facility] Bucyrus HospitalComment on above:Performed By: #### UA, UMICAO #### [facility] [address] [place], [place] [id number] [employer]: Quan Wooten to Pathologiston 15-09-1020Rqokd to PathologistSEE Providence Seaside HospitalComment on above: Result Comment: REVIEWING PATHOLOGIST: ELECTRONICALLY SIGNED. HORACIO VILA M.D.Performed By: #### PTT, FIB, PT, LYTE, DBILI, TBIL, RETCT, CBC, LD, HAPT, PATH ####[facility] [place], [place] [id number] Lab Director: Drew Wooten Metabolic Panelon 29-89-4478Fxrcc gap [Moles/Vol]14 mmol/L9 - 17 mmol/LMercy HealthCalcium [Mass/Vol]8.3 mg/dLLow8.6 - 10.4 mg/dLMercy HealthChloride [Moles/Vol]111 mmol/LHigh98 - 107 mmol/LMercy HealthCO2 [Moles/Vol]19 mmol/LLow20 - 31 mmol/L [facility] HealthCreatinine [Mass/Vol]1.31 mg/dLHigh0.50 - 0.90 mg/dLMercy HealthGFR Hkdyqkbk39 mL/minLow>60Mercy HealthGFR Non- Rqmetxqz21 mL/minLow >60Mercy HealthGFR/1.73 sq M.predicted MDRD (S/P/Bld) [Vol rate/Area][facility] Healthcare SystemComment on above:Average GFR for 40-49 years old: 99 mL/min/1.73sq m Chronic Kidney Disease: <60 mL/min/1.73sq m Kidney failure: <15 mL/min/1.73sq m eGFR calculated using average adult body mass. Additional eGFR calculator available at: http://www.[employer]Coll[employer]/multiple_crcl_2012.htm GFR/1.73 sq M.predicted MDRD (S/P/Bld) [Vol rate/Area]NOT REPORTEDAcmc Healthcare System Glucose [Mass/Vol]105 mg/oKJwje20 - 99 mg/dLAcmc Healthcare SystemInterpretation and review of laboratory resultsAbnormalAcmc Healthcare SystemPotassium [Moles/Vol]3.7 mmol/L 3.7 - 5.3 mmol/LMercy HealthSodium [Moles/Vol]144 mmol/L135 - 144 mmol/LMercy HealthUrea nitrogen (BldV) [Mass/Vol]19 mg/dL6 - 20 mg/dLAcmc Healthcare SystemUrea nitrogen/Creatinine (Bld) [Mass ratio]NOT REPORTEDMayo Clinic Health System– OakridgeBasic Metabolic Profon 10-03-2021(cont.)NormalProtestant Deaconess HospitalComment on above:Result Comment: Average GFR for 40-49 years old: 99 mL/min/1.73sq m Chronic Kidney Disease: <60 mL/min/1.73sq m Kidney failure: <15 mL/min/1.73sq m eGFR calculated using average adult body mass. Additional eGFR calculator available at: http://www.CoCollage/multiple_crcl_2012.htmPerformed By: ###PRATIBHA FARIAS #### [facility] [address] [place] [id number] [employer]: Brandan Ugalde MDAnion gap [Moles/Vol]14 mmol/LNormal9-17Pro[facility]ant Deaconess HospitalComment on above:Performed By: ###PRATIBHA FARIAS #### [employer] [address] [place] [address] [employer] Organ Assembler [employer] Checker: Brandan Ugalde MDCalcium [Mass/Vol]8.3 mg/dLLow8.6-10.4[facility]aconess HospitalComment on above:Performed By: #### UA, UMICAO #### [facility] [address] [place] [address] [employer]er [employer] Checker: DANIELLE Wootenhloride [Moles/Vol]111 mmol/EWmmk69-036LucbiProtestant Deaconess HospitalComment on above:Performed By: #### UA, UMICAO #### [facility] [address] [place] [address] Electric [employer]er [employer] Checker: Brandan Ugalde MDCO2 [Moles/Vol]19 mmol/BPiy19-78QhyyfProtestant Deaconess HospitalComment on above:Performed By: #### GERMANIA, UMICAO #### [facility] [address] [place] [address] [employer]er [employer] Checker: DANIELLE Wootenreatinine [Mass/Vol]1.31 mg/dLHigh0.50-0.90 [facility] HospitalComment on above:Performed By: #### UA, UMICAO #### [facility] [address] [place] [address] [employer] Organ As[employer]er [employer] Checker: Brandan Ugalde MDGFR, Amer54 mL/minLow>60[facility] HospitalComment on above:Performed By: #### GERMANIA, UMICAO #### [facility] [address] [place] [address] [employer] Assembler [employer] Checker: Brandan Ugalde MDGFR,non Amer45 mL/minLow>60[facility] HospitalComment on above:Performed By: #### GERMANIA, UMICAO #### [facility] [address] [place] [address] Electric [employer] Assembler [employer] Checker: Brandan Ugalde MDGlucose [Mass/Vol]105 mg/eCClcy85-23KzgwvMills-Peninsula Medical CenterComment on above:Performed By: #### UA, UMICAO #### [facility] [address] [place] [address] Electric [employer]er [employer] Checker: DANIEL Wootenotassium [Moles/Vol]3.7 mmol/LNormal3.7-5.3 [facility] HospitalComment on above:Performed By: #### PRATIBHA SOLO #### [facility] [address] [place] [address] Electric [employer]er [employer] Checker: Brandan Ugalde MDSodium [Moles/Vol]144 mmol/KQcpsyq366-952JmdrhProtestant Deaconess HospitalComment on above:Performed By: #### PRATIBHA SOLO #### [facility] [address] [place] [address] Electric [employer]er [employer] Checker: Brandan Ugalde MDUrea nitrogen [Mass/Vol]19 mg/dLNormal6-20[facility] HospitalComment on above:Performed By: #### PRATIBHA SOLO #### [address] [address] [employer]er [employer] Checker: CHAVO Wooten/CRE RatioNOT REPORTEDNormal9-20[facility]aconess HospitalComment on above:Performed By: ###PRATIBHA FARIAS #### [address] [address] Electric Organ Assembler [employer] Checker: JACOB Wootentaging:NOT REPORTEDNormalProtestant Deaconess HospitalComment on above:Performed By: ###PRATIBHA FARIAS #### [address] [address] [employer] Assembler [employer] Checker: Brandan Ugalde [facility] HOLLISBC auto differentialon [id number] Eos # 0.22[facility] HealthAbsolute Immature Granulocyte0.00Mer[facility] HealthAbsolute Lymph # 2.04Mer[facility] HealthAbsolute [place]oultrie #0.72Mercy HealthBasophils (Bld) [#/Vol]0.00 10*3/uLMercy HealthBasophils/100 WBC (Bld)0 %0 - 2 %[facility] HealthDifferential TypeNOT REPORTEDMercy HealthEosinophils/100 WBC (Bld)4 %1 - 4 %[facility] Hematocrit (Bld) [Volume fraction]34.4 %Low36.3 - 47.1 %[facility] Hemoglobin.gastrointestinal spec 1 Ql (Stl)11.5 g/dLLow11.9 - 15.1 g/dLAcmc Healthcare SystemImmature granulocytes/100 WBC (Bld)0 %0[facility] SystemInterpretation and review of laboratory resultsAbnormalAcmc Healthcare SystemLymphocytes/100 WBC (Bld)37 %24 - 44 %[facility] HospitalH (RBC) [Entitic mass]28.6 pg25.2 - 33.5 pgMercy Health Perrysburg HospitalHC (RBC) [Mass/Vol]33.4 g/dL28.4 - 34.8 g/dLMercy Health Perrysburg HospitalV (RBC) [Entitic vol]85.6 fL82.6 - 102.9 fLAcmc Healthcare SystemMonocytes/100 WBC (Bld)13 %High1 - 7 %[facility] Morphology Dontrell (Bld) [Interp]NormalAcmc Healthcare SystemNRBC Automated0.00.0 per 100 WBC [facility] SystemPlatelet distribution width (Bld) [Ratio]13.5 %11.8 - 14.4 %[facility] SystemPlatelet EstimateNOT REPORTEDAcmc Healthcare SystemPlatelet mean volume (Bld) [Entitic vol]NOT REPORTED8.1 - 13.5 fLAcmc Healthcare SystemPlatelets (Bld) [#/Vol]See Reflexed IPF ResultAcmc Healthcare SystemRBC (Bld) [#/Vol]4.02 10*6/uL3.95 - 5.11 m/uL [facility] SystemRBC (Bld) [#/Vol]NOT REPORTEDAcmc Healthcare SystemSegmented neutrophils/100 WBC (Bld)46 %36 - 66 %[facility] Healthcare SystemSegs Absolute2.52MerOlympic Memorial HospitalWBC (Bld) [#/Vol] 5.5 10*3/uLAcmc Healthcare SystemWBC (Bld) [#/Vol]NOT REPORTEDMayo Clinic Health System– OakridgeCBC with Diffon [id number]. Basophil0.00 k/uLNormal0.0-0.2[facility] HospitalComment on above:Performed By: #### UAPRATIBHA #### [facility] [address] [place] [address] Electric [employer] Assembler [employer] Checker: MDAbs. SugarImm.Granulocyte0.00 k/uLNormal0.00-0.30[facility]aconess HospitalComment on above:Performed By: #### PRATIBHA SOLO #### [facility] [address] [place] [address] Electric Organ Assembler [employer] Checker: MDAbs. SugarNeutrophil (Seg)2.52 k/uLNormal1.8-7.7Pro[facility] Deaconess HospitalComment on above:Performed By: #### PRATIBHA SOLO #### [facility] [employer] [address] [place] [address] Electric [employer] Assembler [employer] Checker: Brandan Ugalde MDBasophils/100 WBC (Bld)0 %Normal0-2MMills-Peninsula Medical CenterComment on above:Performed By: #### PRATIBHA SOLO #### [facility] [employer] [facility] [address] [place] [address] Electric [employer] Assembler [employer] Checker: Brandan Ugalde MDEosinophils (Bld) [#/Vol]0.22 10*3/uLNormal 0.0-0.4[facility] HospitalComment on above:Performed By: #### PRATIBHA SOLO #### [facility] [employer] [address] [place] [address] Electric Organ Assembler [employer] Checker: Brandan Ugalde MDEosinophils/100 WBC (Bld)4 %Normal1-4[facility]aconess HospitalComment on above:Performed By: #### PRATIBHA SOLO #### [facility] [employer] [facility] [address] [place] [address] Electric [employer] Assembler [employer] Checker: Tess Wootenture granulocytes/100 WBC (Bld)0 %Normal0 [facility]ess HospitalComment on above:Performed By: #### PRATIBHA SOLO #### [facility] [address] [place] [address], [place] [address] [employer]er [employer] Checker: Brandan Ugalde MDLymphocytes (Bld) [#/Vol]2.04 10*3/uLNormal 1.0-4.8[facility] HospitalComment on above:Performed By: #### UA, UMICAO #### [facility] [address] [place] [address] Electric [employer]sembler [employer] Checker: Brandan Ugalde MDLymphocytes/100 WBC (Bld)37 %Zvlsjy53-54LcrhsProtestant Deaconess HospitalComment on above:Performed By: #### UA, UMICAO #### [facility] [address] [place] [address] Electric [employer] Assembler [employer] Checker: GAVIN Wootenonocytes (Bld) [#/Vol]0.72 10*3/uLNormal0.1-0.8 [facility] HospitalComment on above:Performed By: #### UA, UMICAO #### [facility] [address] [place] [address] [employer] Assembler [employer] Checker: GAVIN Wootenonocytes/100 WBC (Bld)13 %High1-7Pro[facility]acon[facility] HospitalComment on above:Performed By: #### UA, UMICAO #### [facility] [address] [place] [address] [employer]sembler [employer] Checker: GAVIN Wootenorphology Dontrell (Bld) [Interp]NormalNormalProtestant Deaconess HospitalComment on above:Performed By: #### UA, UMICAO #### [facility] [address] [place] [address] [employer]er [employer] Checker: Brandan Ugalde MDNeutrophil (Seg)46 %Ehuyxn09-68NdbvfProtestant Deaconess HospitalComment on above:Performed By: #### UA, UMICAO #### [facility] [address] [place] [address] [employer]er [employer] Checker: Brandan Ugalde MDErythrocyte distribution width (RBC) [Ratio]13.5 %Nusepk78.8-14.4[facility] HospitalComment on above:Performed By: #### PRATIBHA SOLO #### [facility] [employer] [address] [place] [address] Electric [employer] Assembler [employer] Checker: Brandan Ugalde MDHematocrit (Bld) [Volume fraction]34.4 %Low 36.3-47.1MMills-Peninsula Medical CenterComment on above:Performed By: #### GERMANIA UMICAO #### [address] [address] [employer]sembler [employer] Checker: Brandan Ugalde MDHemoglobin (Bld) [Mass/Vol]11.5 g/dLLow11.9-15.1 [facility] HospitalComment on above:Performed By: #### COLLEEN SOLOICAO #### [place] [address] [employer] Checker: GAVIN WootenCH (RBC) [Entitic mass]28.6 meGnoqop76.2-33.5 [facility] HospitalComment on above:Performed By: #### GERMANIA UMICAO #### [place] [address] [employer]sembler [employer] Checker: GAVIN WootenCHC (RBC) [Mass/Vol]33.4 g/kVLnhlog58.4-34.8 [facility] HospitalComment on above:Performed By: #### GERMANIA UMICAO #### [address] [address] Electric [employer] Assembler [employer] Checker: GAVIN WootenCV (RBC) [Entitic vol]85.6 gUXpbxsx85.6-102.9 [facility] HospitalComment on above:Performed By: #### GERMANIA UMICAO #### [facility] [employer] [address] [place] [address] Electric [employer] Assembler [employer] Checker: GOLDIE Wooten Automated0.0 per 100 WBCNormal0.0Pro[facility] Deaconess HospitalComment on above:Performed By: #### PRATIBHA SOLO #### [facility] [address] [place] [address] Electric [employer] Assembler [employer] Checker: Isabell Wooten CountSee Reflexed IPF ResultNormal 138-453Pro[facility] Deaconess HospitalComment on above:Performed By: #### PRATIBHA SOLO #### [facility] [address] [place] [address] Electric Organ Assembler [employer] Checker: BAKARI Wooten ([facility]) [#/Vol]4.02 10*6/uLNormal3.95-5.11 [facility] HospitalComment on above:Performed By: #### PRATIBHA SOLO #### [facility] [address] [place] [address]28 Electric Organ Assembler [employer] Checker: MISTY Wooten ([facility]) [#/Vol]5.5 10*3/uLNormal3.5-11.3MMills-Peninsula Medical CenterComment on above:Performed By: #### PRATIBHA SOLO #### [facility] [address] [place] [address] Electric [employer] Assembler [employer] Checker: Laxmi Wooten Diff PerformedNOT REPORTEDNormalProtestant Deaconess HospitalComment on above:Performed By: #### PRATIBHA SOLO #### [facility] [address] [place] [address] Electric Organ Assembler [employer] Checker: GAVIN WootenPVNOT REPORTEDNormal8.1-13.5[facility] HospitalComment on above:Performed By: #### PRATIBHA SOLO #### [facility] [address] [place] [address] Electric Organ Assembler [employer] Checker: Brandan Madoff, MDPlatelet CommentNOT REPORTEDNormalProtestant Deaconess HospitalComment on above:Performed By: #### PRATIBHA SOLO #### [facility] [address] [place] [address] Electric [employer] Assembler [employer] Checker: BAKARI Wooten morphology finding Nom (Bld)NOT REPORTED NormalMerLodi Memorial HospitalComment on above:Performed By: #### RPATIBHA SOLO #### [facility] [address] [place] [address] Electric Organ Assembler [employer] Checker: MISTY Wooten MorphologyNOT REPORTEDNormalProtestant Deaconess HospitalComment on above:Performed By: #### PRATIBHA SOLO #### [facility] [address] [place] [address] Electric Organ Assembler [employer] Checker: Edmund Wooten, Bloodon [id number], BloodSpecimen Description .BLOOD Special Requests L HAND 2ML Culture NO GROWTH 5 DAYS Report Status FINAL 10/03/2021NoMercy Health Clermont HospitalComment on above:Performed By: #### PRATIBHA SOLO #### [facility] [facility] [address] [place] [address] Electric Organ Assembler [employer] Checker: Edmund Wooten,Bloodon [id number],BloodSpecimen Description .BLOOD Special Requests NOT REPORTED Culture NO GROWTH 5 DAYS Report Status FINAL 10/03/2021NoMercy Health Clermont HospitalComment on above:Performed By: #### COLLEEN SOLOICAO #### [facility] [address] [place] [address] Electric [employer] Assembler [employer] Checker: DANIELLE Wootenulture, Blood 1on [id number] identified Cx Nom (Unsp spec)NO GROWTH 5 DAYSMercy HealthSpecial RequestsNOT REPORTEDMercy HealthSpecimen Description.BLOODMer HealthMercy HealthCulture, Blood 2on [id number] identified Cx Nom (Unsp spec)NO GROWTH 5 DAYSMercy Health Special RequestsL HAND 2MLMercy HealthSpecimen Description.BLOODOsceola Ladd Memorial Medical CenterImmature Platelet Fractionon [id number], Fluorescence Platelet clumps present, count appears adequate.[facility] Healthcare SystemComment on above: ORDERED BY LABPlatelet, Immature FractionNOT REPORTED1.1 - 10.3 %[facility] Memorial Medical CenterPLT, Immature Fract.on [id number], Fluoresc.Platelet clumps present, count appears adequate.Xrxzwy831-661IlrgmProtestant Deaconess Hospital Comment on above:Result Comment: ORDERED BY LABPerformed By: #### PRATIBHA SOLO #### [facility] [address], [place] [phone] Electric Organ Assembler [employer] Checker: ROSELIA Wooten, Immature Fract.NOT REPORTEDNormal1.1-10.3 [facility] HospitalComment on above:Performed By: #### PRATIBHA SOLO #### [facility] [address], [place] [id number] Electric [employer] Assembler [employer] Checker: YARI Wooten Glucose Fingerstickon [id number] [Mass/Vol]236 mg/gAGmtd36 - 105 mg/dLZanesville City Hospital HealthInterpretation and review of laboratory resultsAbnormMercyhealth Mercy HospitalGlucose [Mass/Vol]89 mg/dL65 - 105 mg/dLAshtabula General Hospital HealthPhosphoruson [id number] [Mass/Vol]4.2 mg/dL2.6 - 4.5 mg/dLMayo Clinic Health System– OakridgePhosphorus, Inorg.on 10-03-2021 Phosphorus, Inorg.4.2 mg/dLNormal2.6-4.5Pro[facility] HospitalComment on above:Performed By: #### PRATIBHA OSLO #### [facility] [address], [place] [phone] Electric [employer] Assembler [employer] Checker: DANIELLE Wooten DIFF TOXIN/ANTIGENon 10-02-2021 DIFF AG + TOXINNegativeNEGATIVEAcmc Healthcare SystemComment on above:No C. difficile antigen and Toxin Detected.Specimen Description.FECESAdventHealth Durand diff Ag + Toxinon 10-02-2021 diff Ag + ToxinNegativeNormalNEGProtestant Deaconess HospitalComment on above:Result Comment: No C. difficile antigen and Toxin Detected.Performed By: #### GERMANIA, PRATIBHA #### [facility] [address] [place] [address] Electric Organ Assembler [employer] Checker: Brandan Ugalde [facility] auto differentialon [id number] Eos # 0.11A[facility]c Healthcare SystemAbsolute Immature Granulocyte0.08Acmc Healthcare SystemAbsolute Lymph # 1.84MerOlympic Memorial HospitalAbsolute Moultrie #0.59MerOlympic Memorial HospitalBasophils (Bld) [#/Vol]0.03 10*3/uLAcmc Healthcare SystemBasophils/100 WBC (Bld)1 %0 - 2 %[facility] SystemDifferential TypeNOT REPORTEDAcmc Healthcare SystemEosinophils/100 WBC (Bld)2 %1 - 4 %[facility] Hematocrit (Bld) [Volume fraction]31.2 %Low36.3 - 47.1 %[facility] Hemoglobin.gastrointestinal spec 1 Ql (Stl)10.4 g/dLLow11.9 - 15.1 g/dLAcmc Healthcare SystemImmature granulocytes/100 WBC (Bld)2 %Jwwf3QisoxAcmc Healthcare SystemInterpretation and review of laboratory resultsAbnormalAcmc Healthcare SystemLymphocytes/100 WBC (Bld)35 %24 - 43 %[facility]sburg HospitalH (RBC) [Entitic mass]28.7 pg25.2 - 33.5 pgMercy Health Perrysburg HospitalHC (RBC) [Mass/Vol]33.3 g/dL28.4 - 34.8 g/dLMercy Health Perrysburg HospitalV (RBC) [Entitic vol]86.2 fL82.6 - 102.9 fLAcmc Healthcare SystemMonocytes/100 WBC (Bld)11 %3 - 12 %[facility] HospitalBC Automated0.00.0 per 100 WBCAcmc Healthcare SystemPlatelet distribution width (Bld) [Ratio] 13.7 %11.8 - 14.4 %[facility] SystemPlatelet EstimateNOT REPORTEDAcmc Healthcare SystemPlatelet mean volume (Bld) [Entitic vol]9.0 fL8.1 - 13.5 fLMercy HealthPlatelets (Bld) [#/Vol]92 10*3/uLLowAcmc Healthcare SystemRBC (Bld) [#/Vol]3.62 10*6/uLLow3.95 - 5.11 m/uL [facility] SystemRBC (Bld) [#/Vol]NOT REPORTEDAcmc Healthcare SystemSegmented neutrophils/100 WBC (Bld)49 %36 - 65 %[facility] Healthcare SystemSegs Absolute2.58A[facility] Healthcare SystemWBC (Bld) [#/Vol] 5.2 10*3/uLAcmc Healthcare SystemWBC (Bld) [#/Vol]NOT REPORTEDMayo Clinic Health System– OakridgeCB with Diffon [id number]. Basophil0.03 k/uLNormal0.00-0.20[facility] HospitalComment on above:Performed By: #### PRATIBHA SOLO #### [facility] [employer] [address] [place] [address] Electric Organ Assembler [employer] Checker: MDAbs. SugarImm.Granulocyte0.08 k/uLNormal0.00-0.30[facility] HospitalComment on above:Performed By: ###PRATIBHA FARIAS #### [facility] [address] [place] [address] [employer] Assembler [employer] Checker: Karma Wooten.Neutrophil (Seg)2.58 k/uLNormal1.50-8.10 [facility] HospitalComment on above:Performed By: ###PRATIBHA FARIAS #### [facility] CenterM[facility] [address] [place] [address] Electric [employer] Assembler [employer] Checker: Brandan Ugalde MDBasophils/100 WBC (Bld)1 %Normal0-2MMills-Peninsula Medical CenterComment on above:Performed By: ###PRATIBHA FARIAS #### [facility] CenterM[facility] [address] [place] [address] [employer]er [employer] Checker: Brandan Ugalde MDEosinophils (Bld) [#/Vol]0.11 10*3/uLNormal 0.00-0.44[facility] HospitalComment on above:Performed By: #### FRANK SOLOO #### [facility] [address] [place] [address] [employer] Checker: Brandan Ugalde MDEosinophils/100 WBC (Bld)2 %Normal1-4[facility] HospitalComment on above:Performed By: #### GERMANIA UMICAO #### [facility] [address] [place] [address] [employer] Checker: Brandan Ugalde MDImmature granulocytes/100 WBC (Bld)2 %Ertu1IpjphProtestant Deaconess HospitalComment on above:Performed By: #### GERMANIA UMICAO #### [facility] [address] [place] [address] [employer] Checker: Brandan Ugalde MDLymphocytes (Bld) [#/Vol]1.84 10*3/uLNormal 1.10-3.70[facility] HospitalComment on above:Performed By: #### FRANK SOLOO #### [facility] [address] [place] [address] [employer]er [employer] Checker: Brandan Ugalde MDLymphocytes/100 WBC (Bld)35 %Zpedvx09-65RaaiaProtestant Deaconess HospitalComment on above:Performed By: #### GERMANIA UMICAO #### [facility] [address] [place] [address] [employer] Checker: Brandan Ugalde MDMonocytes (Bld) [#/Vol]0.59 10*3/uLNormal 0.10-1.20[facility] HospitalComment on above:Performed By: #### GERMANIA, UMICAO #### [facility] [address] [place] [address] [employer] Assembler [employer] Checker: Brandan Ugalde MDMonocytes/100 WBC (Bld)11 %Normal3-12Mer [facility] Ash Medical CenterComment on above:Performed By: #### GERMANIA UMICAO #### [facility] [address] [place] [address] [employer] Checker: Brandan Ugalde MDNeutrophil (Seg)49 %Amxqhb23-25OpzljProtestant Deaconess HospitalComment on above:Performed By: #### COLLEEN SOLOICAO #### [facility] [address] [place] [address] [employer] Checker: Brandan Ugalde MDErythrocyte distribution width (RBC) [Ratio]13.7 %Jcwlyf17.8-14.4[facility] HospitalComment on above:Performed By: #### PRATIBHA SOLO #### [facility] [address] [place] [address] [employer] Checker: Brandan Ugalde MDHematocrit (Bld) [Volume fraction]31.2 %Low 36.3-47.1MMills-Peninsula Medical CenterComment on above:Performed By: #### PRATIBHA SOLO #### [address] [address] [employer] Checker: Brandan Ugalde MDHemoglobin (Bld) [Mass/Vol]10.4 g/dLLow11.9-15.1 [facility] HospitalComment on above:Performed By: #### COLLEEN SOLOICAO #### [facility] [address] [place] [address] [employer] Checker: GAVIN WootenCH (RBC) [Entitic mass]28.7 qlDaejbd38.2-33.5 [facility] HospitalComment on above:Performed By: #### COLLEEN SOLOICAO #### [facility] [address] [place] [address] [employer] Checker: GAVIN WootenCHC (RBC) [Mass/Vol]33.3 g/xFJrpoct38.4-34.8 [facility] HospitalComment on above:Performed By: #### GERMANIA UMICAO #### [facility] [address] [place] [address] Electric [employer] Checker: GAVIN WootenCV (RBC) [Entitic vol]86.2 uOQynuwp65.6-102.9 [facility] HospitalComment on above:Performed By: #### GERMANIA UMICAO #### [facility] [address] [place] [address] [employer] Checker: GOLDIE Wooten Automated0.0 per 100 WBCNormal0.0Pro[facility] HospitalComment on above:Performed By: #### GERMANIA UMJOSEO #### [facility] [employer] [address] [place] [address] [employer] Checker: Sadaf Wootentejosé luis mean volume (Bld) [Entitic vol]9.0 fL Normal8.1-13.5[facility] HospitalComment on above:Performed By: #### FRANK SOLOO #### [facility] [address] [place] [address] [employer] Checker: DANIEL Wootenlatelets (Bld) [#/Vol]92 10*3/uPYyb349-828YfhrjProtestant Deaconess HospitalComment on above:Performed By: #### GERMANIA UMICAO #### [facility] [address] [place] [address] [employer] Checker: Brandan Ugalde MDRBC (Bld) [#/Vol]3.62 10*6/uLLow3.95-5.11[facility] HospitalComment on above:Performed By: #### GERMANIA, UMICAO #### [facility] [address] [place] [address] [employer] Checker: Brandan Ugalde MDWBC (Bld) [#/Vol]5.2 10*3/uLNormal3.5-11.3[facility] HospitalComment on above:Performed By: #### GERMANIA UMJOSEO #### [facility] [address] [place] [address] [employer] Checker: Laxmi Wooten Diff PerformedNOT REPORTEDNormalProtestant Deaconess HospitalComment on above:Performed By: #### GERMANIA UMICAO #### [facility] [address] [place] [address] [employer] Checker: Isabell Wooten CommentNOT REPORTEDAvita Health System Bucyrus HospitalComment on above:Performed By: #### GERMANIA, UMJOSEO #### [facility] [address] [place] [address] [employer] Checker: BAKARI Wooten morphology finding Nom (Bld)NOT REPORTED NormalProtestant Deaconess HospitalComment on above:Performed By: #### GERMANIA UMICAO #### [facility] [address] [place] [address] [employer] Checker: MISTY Wooten MorphologyNOT REPORTEDAvita Health System Bucyrus HospitalComment on above:Performed By: #### GERMANIA, UMICAO #### [facility] [address] [place] [address] [employer] Checker: Eddy Wootenrointestinal Panel, [facility] 10-02-2021 Campylobacter PCRNEGATIVE: No Campylobacter spp. (jejuni or coli) DNA Detected NEGATIVE: No Campylobacter spp. (jejuni or coli) DNA DetecteMercy HealthE Coli Enterotoxigenic PCRNEGATIVE: No Enterotoxigenic E. coli (ETEC) Heat-labile and heat-stable (LT/ST) DNA DetectedNEGATIVE: No Enterotoxigenic E. coli (ETEC) Heat-labile andMercy HealthPlesiomonas Shigelloides PCRNegativeNEGATIVE: No Plesionomas shigelloides DNA DetectedMer HealthSalmonella PCRNegativeNEGATIVE: No Salmonella spp. DNA DetectedMercy HealthShigatoxin Gene PCRNegativeNEGATIVE: No Shiga toxin-producing gene(s) DetectedAcmc Healthcare SystemShigella Sp PCRNegative NEGATIVE: No Shigella spp. / EIEC DNA DetectedAcmc Healthcare SystemSpecimen Description .FECESMerOlympic Memorial HospitalVibrio PCRNEGATIVE: No Vibrio (V. vulnificus, V, parahaemolyticus and V. cholerae) DNA DetectedNEGATIVE: No Vibrio (V. vulnificus, V, parahaemolyticus andAvita Health Systemersinia Enterocolitica PCR NegativeNEGATIVE: No Yersinia enterocolitica DNA DetectedAshtabula General Hospital HealthHaptoglobinon 08-00-2106Luauthkkxmy916 mg/lVRcnf09-677PfebnProtestant Deaconess HospitalComment on above:Performed By: #### PTT, FIB, PT, LYTE, DBILI, TBIL, RETCT, CBC, LD, HAPT, PATH ####[facility] [address] [place] [address] [facility] Director: Brandan Ugalde MDHaptoglobin346 mg/mYWkjf74 - 200 mg/dLAcmc Healthcare SystemInterpretation and review of laboratory resultsAbnoAurora Medical Center in SummitPO Glucose Fingerstickon 41-30-6204Syqczhj [Mass/Vol] 200 mg/zQTakj54 - 105 mg/dLAcmc Healthcare SystemInterpretation and review of laboratory resultsAbnoAurora Medical Center– BurlingtonGlucose [Mass/Vol]131 mg/hPBcgy82 - 105 mg/dLAcmc Healthcare SystemInterpretation and review of laboratory resultsAbnoProMedica Fostoria [facility] HealthGlucose [Mass/Vol]122 mg/sEPhlh94 - 105 mg/dLAcmc Healthcare System Interpretation and review of laboratory resultsAbnoAurora Medical Center– Burlington Glucose [Mass/Vol]119 mg/kSRzjn69 - 105 mg/dLZanesville City Hospital HealthInterpretation and review of laboratory resultsAbnoAurora Medical Center– BurlingtonGlucose [Mass/Vol] 135 mg/sCFdgm74 - 105 mg/dLAcmc Healthcare SystemInterpretation and review of laboratory resultsAbnormMercyhealth Mercy HospitalPhosphoruson 26-79-6334Sqvfadmeb [Mass/Vol]3.0 mg/dL2.6 - 4.5 mg/dLMercy HealthMercy HealthPhosphorus, Inorg.on 75-26-3802Yvmlsslkee, Inorg.3.0 mg/dLNormal2.6-4.5Mer[facility] Francisco Marine HospitalComment on above:Performed By: #### GERMANIA, PRATIBHA #### [facility] [address] [place] [address] Electric [employer] Assembler [employer] Checker: Brandan Ugalde, MDRENAL FUNCTION PANELon 44-64-5603Zqrdbja [Mass/Vol]2.5 g/dLLow3.5 - 5.2 g/dLMercy HealthAnion gap [Moles/Vol]9 mmol/L9 - 17 mmol/LMercy HealthCalcium [Mass/Vol]8.7 mg/dL8.6 - 10.4 mg/dLMercy Health Chloride [Moles/Vol]109 mmol/LHigh98 - 107 mmol/LMercy HealthCO2 [Moles/Vol]23 mmol/L20 - 31 mmol/LMercy HealthCreatinine [Mass/Vol]1.46 mg/dLHigh0.50 - 0.90 mg/dLMercy HealthGFR Heombbrw63 mL/minLow>60Mercy HealthGFR Non- Gsnchdnc30 mL/minLow>60Mercy HealthGFR/1.73 sq M.predicted MDRD (S/P/Bld) [Vol rate/Area]Acmc Healthcare SystemComment on above:Average GFR for 40-49 years old: 99 mL/min/1.73sq m Chronic Kidney Disease: <60 mL/min/1.73sq m Kidney failure: <15 mL/min/1.73sq m eGFR calculated using average adult body mass. Additional eGFR calculator available at: http://www.[employer]/multiple_crcl_2012.htm GFR/1.73 sq M.predicted MDRD (S/P/Bld) [Vol rate/Area]NOT REPORTEDMerOlympic Memorial Hospital Glucose [Mass/Vol]109 mg/wGUgff37 - 99 mg/dLMer HealthInterpretation and review of laboratory resultsAbnormalMer HealthPhosphate [Mass/Vol]3.2 mg/dL2.6 - 4.5 mg/dLMercy HealthPotassium [Moles/Vol]3.6 mmol/LLow3.7 - 5.3 mmol/LMercy HealthSodium [Moles/Vol]141 mmol/L135 - 144 mmol/LMercy HealthUrea nitrogen (BldV) [Mass/Vol]22 mg/dLHigh6 - 20 mg/dLZanesville City Hospital HealthUrea nitrogen/Creatinine (Bld) [Mass ratio]NOT REPORTEDMayo Clinic Health System– OakridgeRenal Function Panelon 10-02-2021(cont.)NormalProtestant Deaconess HospitalComment on above:Result Comment: Average GFR for 40-49 years old: 99 mL/min/1.73sq m Chronic Kidney Disease: <60 mL/min/1.73sq m Kidney failure: <15 mL/min/1.73sq m eGFR calculated using average adult body mass. Additional eGFR calculator available at: http://www.[employer]/multiple_crcl_2012.htmPerformed By: #### PRATIBHA SOLO #### [facility] [address] [place] [address] [phone] [employer]er [employer] Checker: Brandan Ugalde MDAlbumin [Mass/Vol]2.5 g/dLLow3.5-5.2MMills-Peninsula Medical CenterComment on above:Performed By: #### PRATIBHA SOLO #### [facility] [address] [place] [address] [employer]er [employer] Checker: Brandan Ugalde MDAnion gap [Moles/Vol]9 mmol/LNormal9-17Pro[facility]ant Deaconess HospitalComment on above:Performed By: #### FRANK SOLOO #### [facility] [place] [address] Electric [employer] Assembler [employer] Checker: DANIELLE Wootenalcium [Mass/Vol]8.7 mg/dLNormal8.6-10.4Pro[facility] Deaconess HospitalComment on above:Performed By: #### FRANK SOLOO #### [facility] [address] [place] [address] [id number] [employer]er [employer] Checker: DANIELLE Wootenhloride [Moles/Vol]109 mmol/JLjay79-145VdydfProtestant Deaconess HospitalComment on above:Performed By: #### PRATIBHA SOLO #### [facility] [address] [place] [address] [employer]er [employer] Checker: Brandan Ugalde MDCO2 [Moles/Vol]23 mmol/DUzetar76-46XsgipProtestant Deaconess HospitalComment on above:Performed By: #### PRATIBHA SOLO #### [facility] [address] [place] [address] [employer]er [employer] Checker: DANIELLE Wootenreatinine [Mass/Vol]1.46 mg/dLHigh0.50-0.90 [facility]ess HospitalComment on above:Performed By: #### PRATIBHA SOLO #### [address] [address] [employer]sembler [employer] Checker: Brandan Ugalde MDGFR, Amer48 mL/minLow>60Pro[facility] Deaconess HospitalComment on above:Performed By: #### PRATIBHA SOLO #### [address] [address] [employer]er [employer] Checker: Brandan Ugalde MDGFR,non Amer39 mL/minLow>60[facility]aconess HospitalComment on above:Performed By: #### PRATIBHA SOLO #### [address] [address] [employer]er [employer] Checker: Brandan Ugalde MDGlucose [Mass/Vol]109 mg/lEEszq25-32IhcrwMills-Peninsula Medical CenterComment on above:Performed By: #### FRANK SOLOO #### [facility] [address] [place] [address] [employer]er [employer] Checker: DANIEL Wootenhosphorus, Inorg.3.2 mg/dLNormal2.6-4.5Pro[facility] Deaconess HospitalComment on above:Performed By: #### GERMANIA UMICAO #### [facility] [address] [place] [address] Electric [employer]sembler [employer] Checker: DANIEL Wootenotassium [Moles/Vol]3.6 mmol/LLow3.7-5.3Mer[facility] Francisco Marine HospitalComment on above:Performed By: #### GERMANIA UMICAO #### [facility] [address] [place] [address] [employer]er [employer] Checker: JACOB Wootenodium [Moles/Vol]141 mmol/JBqditb449-026HjwttProtestant Deaconess HospitalComment on above:Performed By: #### GERMANIA UMICAO #### [facility] [address] [place] [address] [employer]er [employer] Checker: Brandan Ugalde MDUrea nitrogen [Mass/Vol]22 mg/dLHigh6-20Pro[facility] Deaconess HospitalComment on above:Performed By: #### GERMANIA UMICAO #### [facility] [address] [place] [address] [employer]er [employer] Checker: CHAVO Wooten/ABI Ramey REPORTEDNounc health920Protestant Deaconess HospitalComment on above:Performed By: #### GERMANIA UMICAO #### [facility] [address] [place] [address] [employer]sembler [employer] Checker: JACOB Wootentaging:NOT REPORTEDNormalProtestant Deaconess HospitalComment on above:Performed By: #### GERMANIA UMICAO #### [facility] [address] [place] [address] [employer]er [employer] Checker: Fawad Wooten PCR Batteryon 83-52-3524Jspifoethduzf sp PCRNEGATIVE: No Campylobacter spp. (jejuni or coli) DNA DetectedNormalCZanesville City HospitalComment on above:Performed By: #### GERMANIA UMICAO #### [facility] [address] [place] [address] [employer] Assembler [employer] Checker: GODFREY Wooten coli enterotox PCRNEGATIVE: No Enterotoxigenic E. coli (ETEC) Heat-labile and heat-stable (LT/ST)NormalEECNEGProtestant Deaconess HospitalComment on above:Result Comment: DNA DetectedPerformed By: #### GERMANIA UMJOSEO #### [address] [address] [employer] Assembler [employer] Checker: Gil Wootenmonas sp PCRNegativeNounc healthPLENEGProtestant Deaconess HospitalComment on above:Performed By: #### FRANK SOLOO #### [address] [address] Electric [employer] Assembler [employer] Checker: JACOB Wootenalmonella sp PCRNegativeNoWyandot Memorial HospitalComment on above:Performed By: #### GERMANIA UMICAO #### [address] [address] Electric [employer] Assembler [employer] Checker: JACOB Wootenhigatoxin gene PCRNegativeNoFormerly Vidant Roanoke-Chowan HospitalTXNEGProtestant Deaconess HospitalComment on above:Performed By: #### GERMANIA UMICAO #### [facility] [address] [address] Electric Organ Assembler And Checker: Evelio Wootengella sp PCRNegativeNoFormerly Vidant Roanoke-Chowan HospitalHINEGProtestant Deaconess HospitalComment on above:Performed By: #### GERMANIA UMICAO #### [facility] [address] [place] [address] Electric [employer] Assembler [employer] Checker: Scott Wootenbrrush sp PCRNEGATIVE: No Vibrio (V. vulnificus, V, parahaemolyticus and V. cholerae) DNANormalVIBNEGProtestant Deaconess HospitalComment on above:Result Comment: DetectedPerformed By: #### GERMANIA UMICAO #### [facility] [address] [place] [address] Electric [employer] Assembler [employer] Checker: Krista Wooten gene PCRNegativeNormalYERNEGProtestant Deaconess HospitalComment on above:Performed By: #### UAPRATIBHA #### [facility] [address] [place] [address] [id number] [employer] Assembler [employer] Checker: Abdi Wooten 17-25-4516fYUP Coag (Bld) [Time]22.1 s Bmeusy54.5-30.5Pro[facility] Deaconess HospitalComment on above:Result Comment: IV Heparin Therapy Range: 48.6-77.8Performed By: #### LACWB #### [place] [address] [employer] Assembler [employer] Checker: Jose D Wooten Coag (Bld) [Time]22.1 sMDetwiler Memorial HospitalComment on above: IV Heparin Therapy Range: 48.6-77.8 Acmc Healthcare SystemBETA-HYDROXYBUTERATEon 67-77-6739Zkjf-Hydroxybutyrate0.2 mmol/L0.02 - 0.27 mmol/LMFroedtert Menomonee Falls Hospital– Menomonee FallsBeta Hydroxybutyrateon 00-11-7284Yphs Hydroxybutyrate0.20 mmol/LNormal0.02-0.27Pro[facility] Deaconess HospitalComment on above:Performed By: #### VBG #### [address] [phone] Electric [employer] Assembler [employer] Checker: Salena Wootenirubin, Directon 29-65-5940Rlyxftuen.indirect [Mass/Vol]0.08 mg/dLNormal<0.31Pro[facility] Deaconess HospitalComment on above:Performed By: #### PTT, FIB, PT, LYTE, DBILI, TBIL, RETCT, CBC, LD, HAPT, PATH ####[facility] [address] [place] [address] [id number] Lab Director: Raul Wooten.indirect [Mass/Vol]0.08 mg/dL<0.31Acmc Healthcare SystemBilirubin, Totalon 45-10-2344Ahlgdufly [Mass/Vol]0.17 mg/dLLow0.3-1.2MMills-Peninsula Medical CenterComment on above:Performed By: #### PTT, FIB, PT, LYTE, DBILI, TBIL, RETCT, CBC, LD, HAPT, PATH ####[facility] Un[address] [place] [address] [id number] Lab Director: Brandan Ugalde MDBilirubin [Mass/Vol]0.17 mg/dLLow0.3 - 1.2 mg/dLMercy Health Kings Mills Hospital diff Ag + Toxinon 10-01-2021 Specimen Description.FECESNormalProtestant Deaconess HospitalComment on above:Performed By: #### FRANK SOLOO #### [place] [address] [employer] Assembler [employer] Checker: DANIELLE WootenBCon 14-14-6761Untbmdouxkl distribution width (RBC) [Ratio]13.8 %Kswtin65.8-14.4Pro[facility] Deaconess HospitalComment on above:Performed By: #### PTT, FIB, PT, LYTE, DBILI, TBIL, RETCT, CBC, LD, HAPT, PATH ####[place] [address] lab Director: Brandan Ugalde MDHematocrit (Bld) [Volume fraction]32.2 %Low36.3-47.1 [facility]aconess HospitalComment on above:Performed By: #### PTT, FIB, PT, LYTE, DBILI, TBIL, RETCT, CBC, LD, HAPT, PATH ####[address] [address] Lab Director: Brandan Ugalde MD Hemoglobin (Bld) [Mass/Vol]10.9 g/dLLow11.9-15.1MMills-Peninsula Medical Center Comment on above:Performed By: #### PTT, FIB, PT, LYTE, DBILI, TBIL, RETCT, CBC, LD, HAPT, PATH ####[facility] [address] [place] [phone] Director: RUPAL Wooten (RBC) [Entitic mass]29.1 pgNormal 25.2-33.5Pro[facility] Deaconess HospitalComment on above:Performed By: #### PTT, FIB, PT, LYTE, DBILI, TBIL, RETCT, CBC, LD, HAPT, PATH ####[facility] [address] [place] [address] Lab Director: RUPAL WootenC (RBC) [Mass/Vol]33.9 g/fCIxgfjz21.4-34.8Pro[facility]aconess HospitalComment on above:Performed By: #### PTT, FIB, PT, LYTE, DBILI, TBIL, RETCT, CBC, LD, HAPT, PATH ####[place], [place] [phone] Director: BERTA Wooten (RBC) [Entitic vol]85.9 fL Wgchpm27.6-102.9Pro[facility] Deaconess HospitalComment on above:Performed By: #### PTT, FIB, PT, LYTE, DBILI, TBIL, RETCT, CBC, LD, HAPT, PATH ####[place] [address] Lab Director: Brandan Ugalde MDNRBC Automated0.0 per 100 WBCNormal0.0[facility] Comment on above:Performed By: #### PTT, FIB, PT, LYTE, DBILI, TBIL, RETCT, CBC, LD, HAPT, PATH ####[facility] [address] [place] [phone] Director: Mera Wootenlet mean volume (Bld) [Entitic vol]10.4 fLNormal8.1-13.5Pro[facility] Deaconess HospitalComment on above:Performed By: #### PTT, FIB, PT, LYTE, DBILI, TBIL, RETCT, CBC, LD, HAPT, PATH ####[facility] [address] [place], [place] [phone] Lab Director: Robert Wooten (d) [#/Vol]141 10*3/aQSogegi237-039TcricProtestant Deaconess HospitalComment on above:Performed By: #### PTT, FIB, PT, LYTE, DBILI, TBIL, RETCT, CBC, LD, HAPT, PATH ####[facility] [address]nxple[address] [place] [address] [phone] Lab Director: BAKARI Wooten ([facility]) [#/Vol]3.75 10*6/uL Low3.95-5.11Pro[facility] Deaconess HospitalComment on above:Performed By: #### PTT, FIB, PT, LYTE, DBILI, TBIL, RETCT, CBC, LD, HAPT, PATH ####[facility] [address] [place] [address] Lab Director: MISTY Wooten ([facility]) [#/Vol]4.8 10*3/uLNormal3.5-11.3MMills-Peninsula Medical CenterComment on above:Performed By: #### PTT, FIB, PT, LYTE, DBILI, TBIL, RETCT, CBC, LD, HAPT, PATH ####[facility] [address] [place] [address] Lab Director: Brandan Ugalde MDHematocrit (d) [Volume fraction]32.2 %Low36.3 - 47.1 %[facility]cmc Healthcare SystemHemoglobin.gastrointestinal spec 1 Ql (Stl)10.9 g/dLLow11.9 - 15.1 g/dLAcmc Healthcare SystemInterpretation and review of laboratory resultsAbnormalSumma Health Akron Campus (RBC) [Entitic mass]29.1 pg25.2 - 33.5 pgMercy Health Perrysburg HospitalHC (RBC) [Mass/Vol]33.9 g/dL28.4 - 34.8 g/dLMercy Health Perrysburg HospitalV (RBC) [Entitic vol]85.9 fL82.6 - 102.9 fLAcmc Healthcare SystemNRBC Automated0.00.0 per 100 WBCAcmc Healthcare SystemPlatelet distribution width (Bld) [Ratio]13.8 %11.8 - 14.4 % [facility] Healthcare SystemPlatelet mean volume (Bld) [Entitic vol]10.4 fL8.1 - 13.5 fLAcmc Healthcare SystemPlatelets (Bld) [#/Vol]141 10*3/[facility] HospitalRBC (Bld) [#/Vol]3.75 10*6/Low3.95 - 5.11 m/[facility] HospitalWBC (Bld) [#/Vol]4.8 10*3/[facility] CBC auto differentialon [id number] Eos #0.05[facility] Healthcare SystemAbsolute Immature Granulocyte0.04[facility] Healthcare SystemAbsolute Lymph #1.46[facility] Healthcare SystemAbsolute Moultrie #0.46[facility] Healthcare SystemBasophils (Bld) [#/Vol]10*3/[facility] HospitalBasophils/100 WBC (Bld)1 %0 - 2 %[facility] Healthcare SystemDifferential TypeNOT REPORTEDAcmc Healthcare System Eosinophils/100 WBC (Bld)1 %1 - 4 %[facility] Healthcare SystemHematocrit (Bld) [Volume fraction]28.5 %Low36.3 - 47.1 %[facility] Healthcare SystemHemoglobin.gastrointestinal spec 1 Ql (Stl)10.0 g/dLLow11.9 - 15.1 g/dLAcmc Healthcare SystemImmature granulocytes/100 WBC (Bld) 1 %Dtyt5QetosAcmc Healthcare SystemInterpretation and review of laboratory resultsAbnormalAcmc Healthcare SystemLymphocytes/100 WBC (Bld)37 %24 - 43 %[facility] HospitalH (RBC) [Entitic mass] 29.6 pg25.2 - 33.5 pgMercy Health Perrysburg HospitalHC (RBC) [Mass/Vol]35.1 g/fXKnsx73.4 - 34.8 g/dLMercy Health Perrysburg HospitalV (RBC) [Entitic vol]84.3 fL82.6 - 102.9 [facility] Monocytes/100 WBC (Bld)12 %3 - 12 %[facility] Healthcare SystemNRBC Automated0.00.0 per 100 WBC [facility] HealthPlatelet distribution width (Bld) [Ratio]13.9 %11.8 - 14.4 %[facility] HealthPlatelet EstimateNOT REPORTEDZanesville City Hospital HealthPlatelet mean volume (Bld) [Entitic vol]NOT REPORTED8.1 - 13.5 fLZanesville City Hospital HealthPlatelets (Bld) [#/Vol]See Reflexed IPF ResultMer HealthRBC (Bld) [#/Vol]3.38 10*6/uLLow3.95 - 5.11 m/uL [facility] HealthRBC (Bld) [#/Vol]NOT REPORTEDAcmc Healthcare SystemSegmented neutrophils/100 WBC (Bld)48 %36 - 65 %[facility] Healthcare SystemSegs Absolute1.91[facility] HealthWBC (Bld) [#/Vol] 3.9 10*3/uLAcmc Healthcare SystemWBC (Bld) [#/Vol]NOT REPORTEDMayo Clinic Health System– OakridgeCBC with Diffon [id number]. Basophil<0.76Ywqhmu5.00-0.20[facility]aconess HospitalComment on above:Performed By: #### EMMA #### [facility] [employer] [address] [place] [address] Electric [employer]sembler [employer] Checker: MDAbs. SugarImm.Granulocyte0.04 k/uLNormal0.00-0.30[facility]aconess HospitalComment on above:Performed By: #### KATHYWB #### [facility] [employer] [facility] [address] [place] [address] [employer] Checker: MDAbs. SugarNeutrophil (Seg)1.91 k/uLNormal1.50-8.10 [facility] HospitalComment on above:Performed By: #### LACWB #### [facility] [employer] [address] [place] [address] [employer] Checker: Brandan Ugalde MDBasophils/100 WBC (Bld)1 %Normal0-2MMills-Peninsula Medical CenterComment on above:Performed By: #### KATHYWB #### [address] [address] [employer] Checker: Brandan Ugalde MDEosinophils (Bld) [#/Vol]0.05 10*3/uLNormal 0.00-0.44[facility] HospitalComment on above:Performed By: #### LACWB #### [address] [address] [employer] Checker: Brandan Ugalde MDEosinophils/100 WBC (Bld)1 %Normal1-4[facility] HospitalComment on above:Performed By: #### LACWB #### [address] [address] [employer]er: Brandan Ugalde MDErythrocyte distribution width (RBC) [Ratio]13.9 %Xaaevk11.8-14.4[facility]acon[facility] HospitalComment on above:Performed By: #### LACWB #### [address] [address] [employer] Checker: Brandan Ugalde MDHematocrit (Bld) [Volume fraction]28.5 %Low 36.3-47.1MMills-Peninsula Medical CenterComment on above:Performed By: #### LACWB #### [address] [address] [employer] Checker: Brandan Ugalde MDHemoglobin (Bld) [Mass/Vol]10.0 g/dLLow11.9-15.1 [facility] HospitalComment on above:Performed By: #### LACWB #### [address] [address] [employer] Checker: Brandan Ugalde MDImmature granulocytes/100 WBC (Bld)1 %Onro7UskhpProtestant Deaconess HospitalComment on above:Performed By: #### LACWB #### [address] [place] [address] [employer] Checker: Brandan Ugalde MDLymphocytes (Bld) [#/Vol]1.46 10*3/uLNormal 1.10-3.70[facility] HospitalComment on above:Performed By: #### LACWB #### [address] [address] [employer] Checker: Sven Wootenhocytes/100 WBC (Bld)37 %Frwxbr05-32HbokdProtestant Deaconess HospitalComment on above:Performed By: #### LACWB #### [place] [address] [employer] Checker: GAVIN WootenCH (RBC) [Entitic mass]29.6 jeHpgnfw03.2-33.5 [facility] HospitalComment on above:Performed By: #### LACWB #### [place] [address] [employer] Checker: GAVIN WootenCHC (RBC) [Mass/Vol]35.1 g/uUHbon22.4-34.8[facility] HospitalComment on above:Performed By: #### LACWB #### [place] [address] [employer] Checker: GAVIN WootenCV (RBC) [Entitic vol]84.3 mNVmlwki58.6-102.9 [facility] HospitalComment on above:Performed By: #### LACWB #### [address] [address] [employer] Checker: GAVIN Wootenonocytes (Bld) [#/Vol]0.46 10*3/uLNormal 0.10-1.20[facility] HospitalComment on above:Performed By: #### LACWB #### [address] [address] Electric [employer] Assembler [employer] Checker: GAVIN Wootenonocytes/100 WBC (Bld)12 %Normal3-12Pro[facility]acon[facility] HospitalComment on above:Performed By: #### LACWB #### [address] [address] [employer] Checker: Brandan Ugalde MDNeutrophil (Seg)48 %Hpwljy69-49KsjsuProtestant Deaconess HospitalComment on above:Performed By: #### LACWB #### [address] [address] [employer] Checker: Brandan Ugalde MDNRJONNIE Automated0.0 per 100 WBCNormal0.0[facility]aconess HospitalComment on above:Performed By: #### LACWB #### [address] [address] [employer] Checker: Sadaf Wootentelet CountSee Reflexed IPF ResultNormal 138-453Pro[facility] Deaconess HospitalComment on above:Performed By: #### LACWB #### [address] [address] [employer] Checker: DENG WootenBC (Bld) [#/Vol]3.38 10*6/uLLow3.95-5.11[facility] HospitalComment on above:Performed By: #### LACWB #### [address] [address] [employer]sembler [employer] Checker: Brandan Ugalde MDWBC (Bld) [#/Vol]3.9 10*3/uLNormal3.5-11.3MMills-Peninsula Medical CenterComment on above:Performed By: #### LACWB #### [address] [address] [employer] Assembler [employer] Checker: Brandan Madoff, MDAuto Diff PerformedNOT REPORTEDNormalProtestant Deaconess HospitalComment on above:Performed By: #### LACWB #### [facility] [address] [place] [address] Electric [employer]er [employer] Checker: Brandan Ugalde MDMPVNOT REPORTEDNormal8.1-13.5[facility] HospitalComment on above:Performed By: #### LACWB #### [facility] [address] [place] [address] [employer]er [employer] Checker: DANIEL Wootenlatelet CommentNOT REPORTEDNormalProtestant Deaconess HospitalComment on above:Performed By: #### LACWB #### [facility] [address] [place] [address] [employer] Checker: BAKARI Wooten morphology finding Nom (Bld)NOT REPORTED NormalProtestant Deaconess HospitalComment on above:Performed By: #### LACWB #### [facility] [address] [place] [address] [employer]er [employer] Checker: MISTY Wooten MorphologyNOT REPORTEDAvita Health System Bucyrus HospitalComment on above:Performed By: #### LACWB #### [facility] [address] [place] [address] [employer]er [employer] Checker: DANIELLE WootenHLJUAN, URINE, RANDOMon 99-05-6176Izmognae, Ur 33 mmol/LMercy St. Anthony'S HospitalComment on above:No normal range established.CT ABDOMEN PELVIS WO CONTRASTon [id number] ABDOMEN PELVIS WO CONTRASTEXAMINATION: CT OF THE [...] by: Beulah Felix DO 10/01/21 Final resultNormalMercy San Francisco Marine HospitalCT ABDOMEN PELVIS WO CONTRAST Additional Contrast? Oralon . No acute process in the abdomen or pelvis. 2. Trace bilateral pleural fluid and mild bibasilar atelectasis. RECOMMENDATIONS: Unavailable [facility] CONSOLIDATEDEXAMINATION: CT OF THE ABDOMEN AND [...] hernia. No acute or suspicious osseous abnormality. [facility] Beulah Santana, DO - 10/01/2021 EXAMINATION: CT OF THE [...] fluid and mild bibasilar atelectasis. RECOMMENDATIONS: Unavailable Personaling Phone: radiology Study observation (narrative)Personaling Phone: cT ABDOMEN PELVIS WO CONTRAST Additional Contrast? OralOrdered By: Beulah Felix on 97-78-2068[facility] Work Phone: Chloride,Random Uron 01-00-9050Uiomkobh [Moles/Vol]33 mmol/LNormalProtestant Deaconess HospitalComment on above:Result Comment: No normal range established.Performed By: #### UAPRATIBHA #### [employer] [address] [place] [address] [employer]er: DANIELLE Wootenmountainstar healthcare Metabolic Pr/rfx MGon 58-82-9057EHG [Catalytic activity/Vol]12 U/LNormal<32Pro[facility] Deaconess HospitalComment on above:Performed By: #### LACWB #### [employer] [address] [place] [address] Electric [employer] As[employer]er [employer] Checker: Brandan Ugalde MDBilirubin [Mass/Vol]mg/dLLow0.3-1.2MMills-Peninsula Medical CenterComment on above:Performed By: #### LACWB #### [employer] [address] [place] [address] Electric [employer] As[employer]er [employer] Checker: Brandan Ugalde MD(cont.)[facility] Comment on above:Result Comment: Average GFR for 40-49 years old: 99 mL/min/1.73sq m Chronic Kidney Disease: <60 mL/min/1.73sq m Kidney failure: <15 mL/min/1.73sq m eGFR calculated using average adult body mass. Additional eGFR calculator available at: http://www.[employer]com/multiple_crcl_2012.htmPerformed By: #### LACWB #### [employer] [address] [place] [address] Electric [employer]er [employer] Checker: Brandan Ugalde MDAlbumin [Mass/Vol]1.9 g/dLLow3.5-5.2MMills-Peninsula Medical CenterComment on above:Performed By: #### LACWB #### [address] [address] Electric [employer] Assembler [employer] Checker: Brandan Ugalde MDAlbumin/Glob Ratio0.7Low1.0-2.5Pro[facility] Deaconess HospitalComment on above:Performed By: #### LACWB #### [address] [address] Electric Organ Assembler [employer] Checker: Brandan Ugalde MDAlkaline Phos69 U/YSumaev09-754NbpldProtestant Deaconess HospitalComment on above:Performed By: #### LACWB #### [address] [address] Electric Organ Assembler [employer] Checker: Brandan Ugalde MDALT [Catalytic activity/Vol]11 U/LNormal5-33 [facility] HospitalComment on above:Performed By: #### LACWB #### [address] [address] [employer] Assembler [employer] Checker: Brandan Ugalde MDAnion gap [Moles/Vol]10 mmol/LNormal9-17Pro[facility]aconess HospitalComment on above:Performed By: #### LACWB #### [address] [address] Electric Organ Assembler [employer] Checker: Brandan Ugalde MDCalcium [Mass/Vol]8.2 mg/dLLow8.6-10.4Pro[facility]aconess HospitalComment on above:Performed By: #### LACWB #### [address] [address] Electric Organ Assembler [employer] Checker: Brandan Ugalde MDChloride [Moles/Vol]115 mmol/CGuhz40-595FmsdqProtestant Deaconess HospitalComment on above:Performed By: #### LACWB #### [address] [address] Electric [employer] Assembler [employer] Checker: Brandan Ugalde MDCO2 [Moles/Vol]13 mmol/GScg40-98GftdlProtestant Deaconess HospitalComment on above:Performed By: #### LACWB #### [address] [address] Electric Organ Assembler [employer] Checker: DANIELLE Wootenreatinine [Mass/Vol]1.77 mg/dLHigh0.50-0.90 [facility] HospitalComment on above:Performed By: #### LACWB #### [address] [address] [employer] Organ Assembler [employer] Checker: Brandan Ugalde MDGFR, Amer38 mL/minLow>60Pro[facility]aconess HospitalComment on above:Performed By: #### LACWB #### [address] [address] [employer] Assembler [employer] Checker: BRAIN Wooten,non Amer31 mL/minLow>60[facility] HospitalComment on above:Performed By: #### LACWB #### [address] [address] Electric Organ Assembler [employer] Checker: Brandan Ugalde MDGlucose [Mass/Vol]184 mg/oMIyox88-99AgijuMills-Peninsula Medical CenterComment on above:Performed By: #### LACWB #### [place] [address] Electric Organ Assembler [employer] Checker: Brandan Ugalde MDPotassium [Moles/Vol]3.5 mmol/LLow3.7-5.3MMills-Peninsula Medical CenterComment on above:Performed By: #### LACWB #### [address] [address] Electric Organ Assembler [employer] Checker: Brandan Ugalde MDProtein [Mass/Vol]4.6 g/dLLow6.4-8.3Mshelby memorial hospitaly [facility] Marine HospitalComment on above:Performed By: #### LACWB #### [address] [address] Electric Organ Assembler [employer] Checker: JACOB Wootenodium [Moles/Vol]138 mmol/ZLmigiw132-621EcjcaProtestant Deaconess HospitalComment on above:Performed By: #### LACWB #### [facility] [address] [place] [address] Electric Organ Assembler And Checker: Brandan Ugalde MDUrea nitrogen [Mass/Vol]31 mg/dLHigh6-20Pro[facility]aconess HospitalComment on above:Performed By: #### LACWB #### [facility] [address] [place] [address] Electric Organ Assembler And Checker: CHAVO Wooten/CRE RatioNOT REPORTEDNormal9-20Pro[facility]aconess HospitalComment on above:Performed By: #### LACWB #### [facility] [address] [place] [address] Electric Organ Assembler And Checker: JACOB Wootentaging:NOT REPORTEDNormalProtestant Deaconess HospitalComment on above:Performed By: #### LACWB #### [facility] [address] [place] [address] Electric Organ Assembler [employer] Checker: DANIELLE Wootenomprehensive Metabolic Panel w/ Reflex to MGon 16-36-4395Ptuaczz [Mass/Vol]1.9 g/dLLow3.5 - 5.2 g/dLMercy Health Albumin/Globulin [...] 31 mmol/LMercy HealthCreatinine [Mass/Vol]1.77 mg/dLHigh0.50 - 0.90 mg/dLAcmc Healthcare SystemFree PSA/Total PSA [Mass fraction]4.6 g/dLLow6.4 - 8.3 g/dLZanesville City Hospital HealthGFR Sguxzgpr28 mL/minLow>60Mer HealthGFR Non- Jbhpgnbs53 mL/minLow>60Mer HealthGFR/1.73 sq M.predicted MDRD (S/P/Bld) [Vol rate/Area][facility] Healthcare SystemComment on above:Average GFR for 40-49 years old: 99 mL/min/1.73sq m Chronic Kidney Disease: <60 mL/min/1.73sq m Kidney failure: <15 mL/min/1.73sq m eGFR calculated using average adult body mass. Additional eGFR calculator available at: http://www.[employer]/multiple_crcl_2012.htm GFR/1.73 sq M.predicted MDRD (S/P/Bld) [Vol rate/Area]NOT REPORTEDAcmc Healthcare System Glucose [Mass/Vol]184 mg/cQBlws73 - 99 mg/dLAcmc Healthcare SystemInterpretation and review of laboratory resultsAbnormAnson Community Hospital HealthPotassium [Moles/Vol]3.5 mmol/L Low3.7 - 5.3 mmol/LMercy HealthSodium [Moles/Vol]138 mmol/L135 - 144 mmol/LMercy HealthUrea nitrogen (BldV) [Mass/Vol]31 mg/dLHigh6 - 20 mg/dLAcmc Healthcare SystemUrea nitrogen/Creatinine (Bld) [Mass ratio]NOT REPORTEDMayo Clinic [facility] System[facility]ridge Electrolyte Panelon 38-84-2823Xsddo gap [Moles/Vol]8 mmol/LLow9 - 17 mmol/LMercy HealthChloride [Moles/Vol]108 mmol/LHigh98 - 107 mmol/LMercy HealthCO2 [Moles/Vol]19 mmol/LLow20 - 31 mmol/LMercy HealthInterpretation and review of laboratory resultsAbnormalMercy HealthPotassium [Moles/Vol]3.4 mmol/LLow3.7 - 5.3 mmol/LMercy HealthSodium [Moles/Vol]135 mmol/L135 - 144 mmol/LMercy Health Mercy HealthAnion gap [Moles/Vol]9 mmol/L9 - 17 mmol/LMercy HealthChloride [Moles/Vol]112 mmol/LHigh98 - 107 mmol/LMercy HealthCO2 [Moles/Vol]16 mmol/LLow 20 - 31 mmol/LMercy HealthPotassium [Moles/Vol]3.2 mmol/LLow3.7 - 5.3 mmol/L [facility]cy HealthSodium [Moles/Vol]137 mmol/L135 - 144 mmol/LMercy HealthElectrolytes on 19-81-9577Lsrou gap [Moles/Vol]8 mmol/LLow9-17Pro[facility]aconess HospitalComment on above:Performed By: #### PRATIBHA SOLO #### [facility] [employer] [address] [place] [address] [phone] Electric Organ Assembler [employer] Checker: Brandan Ugalde MDChloride [Moles/Vol]108 mmol/TWckg27-634QlsnfProtestant Deaconess HospitalComment on above:Performed By: ###PRATIBHA FARIAS #### [facility] [employer] [address] [place] [address] [phone] Electric Organ Assembler [employer] Checker: Brandan Ugalde MDCO2 [Moles/Vol]19 mmol/CDpb29-91EvmexProtestant Deaconess HospitalComment on above:Performed By: ###PRATIBHA FARIAS #### [facility] [employer] [address] [place] [address] Electric Organ Assembler [employer] Checker: Brandan Ugalde MDPotassium [Moles/Vol]3.4 mmol/LLow3.7-5.3MMills-Peninsula Medical CenterComment on above:Performed By: #### PRATIBHA SOLO #### [facility] [employer] [address] [place] [address] [phone] Electric Organ Assembler And Checker: Brandan Ugalde MDSodium [Moles/Vol]135 mmol/HOsveua305-000SxhwyProtestant Deaconess HospitalComment on above:Performed By: #### PRATIBHA SOLO #### [facility] [address] [place] [address] Electric Organ Assembler [employer] Checker: Brandan Ugalde MDAnion gap [Moles/Vol]9 mmol/LNormal9-17[facility] HospitalComment on above:Performed By: #### LACWB #### [facility] [address] [place] [address] Electric Organ Assembler [employer] Checker: Brandan Ugalde MDChloride [Moles/Vol]112 mmol/TMjys99-846YrhwbProtestant Deaconess HospitalComment on above:Performed By: #### LACWB #### [address] [address] Electric Organ Assembler [employer] Checker: Brandan Ugalde MDCO2 [Moles/Vol]16 mmol/EGyf61-34OuzhmProtestant Deaconess HospitalComment on above:Performed By: #### LACWB #### [address] [address] Electric Organ Assembler [employer] Checker: Brandan Ugalde MDPotassium [Moles/Vol]3.2 mmol/LLow3.7-5.3MMills-Peninsula Medical CenterComment on above:Performed By: #### LACWB #### [facility] [employer] [address] [place] [address] Electric Organ Assembler [employer] Checker: Brandan Ugalde MDSodium [Moles/Vol]137 mmol/LRunzjp047-459VebkoProtestant Deaconess HospitalComment on above:Performed By: #### LACWB #### [facility] [employer] [address] [place] [address] Electric Organ Assembler [employer] Checker: Brandan Ugalde MDFibrinogenon 08-77-5083Zgrvymqlru081 mg/dLNormal 140-420Pro[facility] Deaconess HospitalComment on above:Performed By: #### LACWB #### [facility] [employer] [facility] [place] [address] Electric Organ Assembler [employer] Checker: Brandan Ugalde MDFibrinogen389 mg/dL140 - 420 mg/dLAcmc Healthcare System Immature Platelet Fractionon 10-29-8742Njdrjpcz, FluorescencePlatelet clumps present, count appears decreased.[facility] System– OakridgeLactate Dehydrogenaseon 64-67-1430QSY [Catalytic activity/Vol]233 U/MQqvo727-500TaepwProtestant Deaconess HospitalComment on above:Performed By: #### PTT, FIB, PT, LYTE, DBILI, TBIL, RETCT, CBC, LD, HAPT, PATH ####[address] [place] [address] Lab Director: Brandan Ugalde MDInterpretation and review of laboratory resultsAbnoOhioHealth Mansfield HospitalLD233 U/OMicm312 - 214 U/LMercMercy Health Lorain HospitalMagnesiumon 45-81-3903Rvrwfivxo [Mass/Vol]2.0 mg/dLNormal1.6-2.6 [facility] HospitalComment on above:Performed By: #### LACWB #### [address] [address] Electric Organ Assembler [employer] Checker: Brandan Ugalde MDMagnesium [Mass/Vol]2.0 mg/dL1.6 - 2.6 mg/dL [facility] System[facility] OakridgeNo Panel Informationon 17-19-0568SnvqkMayo Clinic Health System– OakridgeInterpretation and review of laboratory resultsAbChildren's Hospital of Wisconsin– Milwaukee HealthPLT, Immature Fract.on 51-29-5146Mdtpvcqi, Fluoresc.Platelet clumps present, count appears decreased.Scfmpa053-759VmgudProtestant Deaconess HospitalComment on above:Performed By: #### LACWB #### [address] [address] Electric Organ Assembler [employer] Checker: Brandan Ugalde MDPLT, Immature Fract.NOT REPORTEDNormal1.1-10.3 [facility] HospitalComment on above:Performed By: #### KATHYWB #### [employer] [address] [place], [place] [phone] Electric Organ Assembler And Checker: YARI Wooten Glucose Fingerstickon 70-46-3163Oasheeg [Mass/Vol]177 mg/bSMjap70 - 105 mg/dLZanesville City Hospital HealthInterpretation and review of laboratory resultsAbnormalMayo Clinic Health System– OakridgeGlucose [Mass/Vol]188 mg/dL High65 - 105 mg/dLZanesville City Hospital HealthInterpretation and review of laboratory results AbnormalMerRandolph Health HealthGlucose [Mass/Vol]225 mg/zLTutk91 - 105 mg/dL A[facility] Healthcare SystemInterpretation and review of laboratory resultsAbnormUpland Hills HealthGlucose [Mass/Vol]197 mg/jTAlia95 - 105 mg/dLAcmc Healthcare System Interpretation and review of laboratory resultsAbnormMercyhealth Mercy Hospital Glucose [Mass/Vol]137 mg/hWFwey30 - 105 mg/dLAcmc Healthcare SystemInterpretation and review of laboratory resultsAbnormOhioHealth Arthur G.[facility] Center HealthPOTASSIUM, URINE, RANDOMon 83-89-5844Tpphbbqlj, Ur7 mmol/LMshelby memorial hospitaly HealthComment on above:No normal range established.PROTIME-INRon 33-25-6988GOX Coag (Bld) [Relative time]1.3 {INR}[facility]cmc Healthcare SystemComment on above: Therapeutic Range: Moderate Anticoagulant Intensity: INR = 2.0-3.0 High Anticoagulant Intensity: INR = 2.5-3.5 Interpretation and review of laboratory resultsAbnoOhioHealth Mansfield HospitalPT Coag (PPP) [Time]13.8 sHigFirelands Regional Medical Centery [facility] 90-56-9634MGZ Coag (PPP) [Relative time]1.1 {INR}[facility] HospitalComment on above:Result Comment: Therapeutic Range: Moderate Anticoagulant Intensity: INR = 2.0-3.0 High Anticoagulant Intensity: INR = 2.5-3.5Performed By: #### LACWB #### [employer] [address] [place], [place] [phone] Electric Organ Assembler [employer] Checker: PAT Wooten Coag (PPP) [Time]11.4 sNormal9.1-12.3MMills-Peninsula Medical CenterComment on above:Performed By: #### LACWB #### [facility] [address] [place] [address] Electric Organ Assembler [employer] Checker: LINA Wooten Coag (PPP) [Relative time]1.3 {INR}Normal [facility] HospitalComment on above:Result Comment: Therapeutic Range: Moderate Anticoagulant Intensity: INR = 2.0-3.0 High Anticoagulant Intensity: INR = 2.5-3.5Performed By: #### LACWB #### [address] [address] Electric Organ Assembler [employer] Checker: PAT Wooten Coag (PPP) [Time]13.8 sHigh9.1-12.3MMills-Peninsula Medical CenterComment on above:Performed By: #### LACWB #### [facility] [address] [place] [address] Electric Organ Assembler [employer] Checker: Amalia Wooten 44-46-9253Tloxxyuwbiixyb and review of laboratory resultsAbnormalZanesville City Hospital HealthPhosphate [Mass/Vol]1.8 mg/dLLow2.6 - 4.5 mg/dLAshtabula General Hospital HealthPhosphorus, Inorg.on 55-39-3478Cjlqditrsv, Inorg.1.8 mg/dLLow2.6-4.5Pro[facility]ess HospitalComment on above: Performed By: #### LACWB #### [facility] [address] [place] [address] Electric Organ Assembler [employer] Checker: Everette Wooten Random Uron 82-43-8431Bepubxfmy [Moles/Vol]7.0 mmol/LNormalProtestant Deaconess HospitalComment on above: Result Comment: No normal range established.Performed By: #### PRATIBHA SOLO #### [facility] [address] [place] [address] Electric Organ Assembler [employer] Checker: DANIEL Wootenrotime-INRon 98-52-7180JMZ Coag (Bld) [Relative time]1.1 {INR}[facility] Healthcare SystemComment on above: Therapeutic Range: Moderate Anticoagulant Intensity: INR = 2.0-3.0 High Anticoagulant Intensity: INR = 2.5-3.5 PT Coag (PPP) [Time]11.4 [facility] HospitalResp Viral Panelon 26-84-0417SsnzllvhtaTrm detectedNormalNOTDEMemorial Health SystemComment on above:Performed By: #### RVP ####[address] [phone] Director: Maria T Wooten.parapertussisNot detectedNormalNOTDET [facility] HospitalComment on above:Performed By: #### RVP ####[address] [phone] Director: Jaci Wootentella pertussisNot detectedNormalNOTDEMemorial Health SystemComment on above:Performed By: #### RVP ####[address] [phone] Director: MD Lilo Wooten.pneumoniaeNot detectedNormalNOTDEMemorial Health System Comment on above:Performed By: #### RVP ####[facility] [address] [place] [address] [phone] Director: DANIELLE Wootenoronavirus 229E Not detectedNormalNOTDEMemorial Health SystemComment on above: Performed By: #### RVP ####[facility] [address] [place] [address] [phone] Director: DANIELLE Wootenoronavirus VTM0Asd detected NormalNOTDEMemorial Health SystemComment on above:Performed By: #### RVP ####[address] [phone] Director: DANIELLE Wootenoronavirus KA85Zxo detectedNormalNOTDEMemorial Health SystemComment on above:Performed By: #### RVP ####[facility] [address] [place], [place] [phone] Director: DANIELLE Wootenoronavirus WO26Wei detectedNormalNOTDEMemorial Health SystemComment on above:Performed By: #### RVP ####[facility] [address] [place], [place] [phone] Director: Tommy Wooten Metapneumo Not detectedNormalNOTDEMemorial Health SystemComment on above: Performed By: #### RVP ####[facility] [address] [place], [place] [phone] Director: Maulik Wooten ANot detectedNormal NOTDEMemorial Health SystemComment on above:Performed By: #### RVP ####[facility] [address] [place] [address] Lab Director: Maulik Wooten BNot detectedNormalNOTDEMemorial Health SystemComment on above:Performed By: #### RVP ####[facility] [address] [place], [place] [phone] Director: Brandan Ugalde MD Mycoplas.pneumoniaeNot detectedNormalNOTDEMemorial Health System Comment on above:Result Comment: Performed by multiplexed nucleic acid assay. Performed By: #### RVP ####[facility] [address] [place] [address] Lab Director: Gabriele Wooten 1Not detected NormalNOTDEMemorial Health SystemComment on above:Performed By: #### RVP ####[facility] [address] [place], [place] [phone] Director: Gabriele Wooten 2Not detectedNormalNOTSelect Medical TriHealth Rehabilitation HospitalComment on above:Performed By: #### RVP ####[address] [address] Lab Director: Gabriele Wooten 3Not detectedNormalNOTDEMemorial Health SystemComment on above:Performed By: #### RVP ####[address] [address] Lab Director: Gabriele Wooten [address] Elizabeth Boardman HospitalComment on above: Performed By: #### RVP ####[address] [address] Lab Director: DENG Wootenesp Syncytial VirusNot detectedNormalDetwiler Memorial HospitalComment on above:Performed By: #### RVP ####[address] [phone] Director: DENG Wootenhino/EnterovirusNot detectedNormalNOTDET [facility] HospitalComment on above:Performed By: #### RVP ####[address] [address] Lab Director: JACOB WootenARS-CoV-2 (COVID-19) RNA ARUN+probe Ql (Unsp spec)Not detected NormalNOTDEMemorial Health SystemComment on above:Performed By: #### RVP ####[address] [address] Lab Director: Maulik Wooten A H1NOT REPORTEDNormalNOTSelect Medical TriHealth Rehabilitation HospitalComment on above:Performed By: #### RVP ####[facility] [address] [place] [address] Lab Director: Brandan Ugalde MDInflkennedy A H1-2009NOT REPORTEDNormalNOTSelect Medical TriHealth Rehabilitation HospitalComment on above:Performed By: #### RVP ####[facility] [address] [place] [address] Lab Director: Maulik Wooten A H3 NOT REPORTEDNormalNOTSelect Medical TriHealth Rehabilitation HospitalComment on above: Performed By: #### RVP ####[facility] [address] [place] [address] Lab Director: Devin Wooten:.NASOPHARYNGEAL SWAB NormalMerLodi Memorial HospitalComment on above:Performed By: #### RVP ####[facility] [address] [place] [address] Lab Director: Bakari Wooten Panel, Molecular, with COVID-19 (Restricted: peds pts or suitable admitted adults)on 18-37-8761Boosugjbix PCRNot detectedNot DetectedMercy HealthB Pertussis by PCRNot detectedNot DetectedMer Health Bordetella ParapertussisNot detectedNot DetectedMercy HealthChlamydia pneumoniae By PCRNot detectedNot DetectedMercy HealthCoronavirus 229E PCRNot detectedNot DetectedMercy HealthCoronavirus HKU1 PCRNot detectedNot DetectedMer Health Coronavirus NL63 PCRNot detectedNot DetectedMercy HealthCoronavirus OC43 PCRNot detectedNot DetectedMercy HealthHuman Metapneumovirus PCRNot detectedNot DetectedMercy HealthInfluenza A by PCRNot detectedNot DetectedMer Health Influenza A H1 (2008) PCRNOT REPORTEDNot DetectedMercy HealthInfluenza A H1 PCR NOT REPORTEDNot DetectedMercy HealthInfluenza A H3 PCRNOT REPORTEDNot Detected [facility] HealthInfluenza B by PCRNot detectedNot DetectedMercy HealthMycoplasma pneumo by PCRNot detectedNot DetectedMercy HealthComment on above:Performed by multiplexed nucleic acid assay.Parainfluenza 1 PCRNot detectedNot DetectedMercy HealthParainfluenza 2 PCRNot detectedNot DetectedAcmc Healthcare SystemParainfluenza 3 PCR Not detectedNot DetectedAcmc Healthcare SystemParainfluenza 4 PCRNot detectedNot Detected [facility] SystemResp Syncytial Virus PCRNot detectedNot DetectedAcmc Healthcare System Rhino/Enterovirus PCRNot detectedNot DetectedAcmc Healthcare SystemSvgykxDSCL-VbQ-8 (COVID-19) RNA ARUN+probe Ql (Unsp spec)Not detectedNot DetectedAcmc Healthcare SystemSpecimen Description.NASOPHARYNGEAL SWABMayo Clinic Health System– OakridgeRetic Counton 10-01-2021 Absolute Retic0.070 M/uLNormal0.030-0.080Pro[facility]aconess HospitalComment on above:Performed By: #### PTT, FIB, PT, LYTE, DBILI, TBIL, RETCT, CBC, LD, HAPT, PATH ####[address] [phone] Director: Brandan Ugalde MDIRF9.500 %Normal2.7-18.3MMills-Peninsula Medical CenterComment on above:Performed By: #### PTT, FIB, PT, LYTE, DBILI, TBIL, RETCT, CBC, LD, HAPT, PATH ####[facility] [address] [place], [place] [phone] Director: DENG Wootenetic Count1.8 %Normal0.5-1.9 [facility] HospitalComment on above:Performed By: #### PTT, FIB, PT, LYTE, DBILI, TBIL, RETCT, CBC, LD, HAPT, PATH ####[facility] [address] [place], [place] [phone] Director: DENG Wootenetic Ussxdlsqql37.5 zwVmqaqi24.2-35.7Pro[facility]aconess HospitalComment on above:Performed By: #### PTT, FIB, PT, LYTE, DBILI, TBIL, RETCT, CBC, LD, HAPT, PATH ####[facility] [address] [place] [address] [phone] Director: DENG Wooteneticulocyteson 66-00-5198Pwnkmwfl Retic #0.070Acmc Healthcare SystemImmature Retic Fract9.5 %2.7 - 18.3 %[facility] HealthRetic %1.8 %0.5 - 1.9 % [facility]c Healthcare SystemRetic Zsvelfdxnt32.5 pg28.2 - 35.7 pgAcmc Healthcare SystemSODIUM, URINE, RANDOMon 00-45-3298Fxbftr (U) [Moles/Vol]27 mmol/LMerc HealthComment on above: No normal range established.Sodium, Random Uron 94-89-2525Uuerag (U) [Moles/Vol] 27 mmol/LNormalProtestant Deaconess HospitalComment on above:Result Comment: No normal range established.Performed By: #### UA, PRATIBHA #### [facility] [address] [place] [address] Electric [employer] Checker: JACOB Wootentool PCR Batteryon 24-98-7874Czozdyxt Description.FECESNormalMerLodi Memorial HospitalComment on above: Performed By: #### UA, UMICAO #### [facility] [address] [place] [address] [employer]er [employer] Checker: JACOB Wootenurgical Pathologyon 57-99-4421Efoykqmv Pathology(NOTE) [id number] [facility] CONSULTING PATHOLOGISTS [facility] ANATOMIC PATHOLOGY [address] [place] [phone] SURGICAL PATHOLOGY CONSULTATION Patient Name: CARISSA SANTOS MR#: [id number] Specimen #[id number] Procedures/Addenda PERIPHERAL BLOOD REPORT Date Ordered: 10/04/2021 Status: Signed Out Date Complete: 10/04/2021 By: Horacio Vila M.D. Date Reported: 10/04/2021 INTERPRETATION Peripheral blood: - Normocytic anemia (hemoglobin 10.9 g/dL), hypoproliferative. Recommend correlation with ferritin and other iron studies. RESULTS-COMMENTS PERIPHERAL BLOOD STUDY CBC: Please see the electronic health record for CBC parameters ([id number], 10/01/21, 08:59). PLATELETS: Platelets show normal morphology. The platelet count is 141 k/microliter. LEUKOCYTES: White blood cells show normal morphology. There are no blasts. ERYTHROCYTES: Red blood cells show normal morphology. The absolute reticulocyte count is not increased. Note: The electronic health record is reviewed. Horacio Vila M.D. Source: A: PERIPHERAL BLOODNormalMerLodi Memorial HospitalComment on above: Performed By: #### UA, UMICAO #### [facility] [address] [place] [address] [employer] Checker: Brandan Ugalde MDURINALYSIS WITH MICROSCOPICon 10-01-2021-[facility] HealthAmorphous, UANOT REPORTEDNoneMercy HealthBacteria, UANOT REPORTEDNoneMercy HealthBilirubin UrineNegativeNEGATIVEMercy HealthCasts UA0 TO 2 HYALINE Reference range defined for non-centrifuged specimen.AboutOne HealthColor, UAYellow YellowMercy HealthCrystals, UANOT REPORTEDNone /HPFMercy HealthEpithelial Cells UA0 TO 2Mercy HealthGlucose, UrTRACEAbnormalNEGATIVEMercy HealthInterpretation and review of laboratory resultsAbnormalMercy HealthKetones Ql (U)Negative NEGATIVEMercy HealthLeukocyte esterase Test strip Ql (U)NegativeNEGATIVEMercy HealthMucus, UANOT REPORTEDNoneMercy HealthNitrite, UrineNegativeNEGATIVEMercy HealthOther Observations UANOT REPORTEDNOT REQ.[facility] HealthpH, UA5.5[facility] Protein, UATRACEAbnormalNEGATIVEMercy HealthRBC, UA0 TO 2Mercy HealthRenal Epithelial, UANOT REPORTED0 /HPFMercy HealthSpecific [place], UA1.006Mercy HealthTrichomonas, UANOT REPORTEDNoneMercy HealthTurbidity UAClearClearMercy HealthUrine HgbSMALLAbnormalNEGATIVEMercy HealthUrobilinogen, UrineNormalNormal [facility] HealthWBC, UA2 TO 5Mercy HealthComment on above:CORRECTED ON 10/01 AT 1024: PREVIOUSLY REPORTED 5 TO 10Yeast, UAMANYAbnormalNoneMercy HealthMercy HealthUrinalysis w/ Microon [id number] RBC's0 TO 9Nyoodv1-7Qazti [facility] Francisco Marine HospitalComment on above:Performed By: #### UAMIC ####[facility] [address] [place], [place] [phone] Director: Luna Wooten WBC's2 TO 9Zorwzs0-8MwpceProtestant Deaconess HospitalComment on above:Result Comment: CORRECTED ON 10/01 AT 1024: PREVIOUSLY REPORTED 5 TO 10 Performed By: #### UAMIC ####[facility] Wx[address] [place], [place] [phone] Director: Brandan Ugalde MDYeastMANYAbnormalNONEMeVictor Valley HospitalComment on above:Performed By: #### UAMIC ####[facility] [address] [place], [place] [phone] Director: Brandan Ugalde MD-----NormalProtestant Deaconess HospitalComment on above:Performed By: #### UAMIC ####[facility] [address] [place] [address] [phone] Director: Raul Wooten, SemiQt,UrNegativeNormalNEGProtestant Deaconess HospitalComment on above:Performed By: #### UAMIC ####[facility] Ooyhakxfyonh5815 [place], [place] [phone] Director: Ijeoma Wooten, UrineSMALLAbnormalNEGProtestant Deaconess HospitalComment on above:Performed By: #### UAMIC ####[facility] Xahxwzlolcbp[address]4 [place], [place] [phone] Director: DANIELLE Wootenasts0 TO 2 HYALINENormal0-8 [facility] HospitalComment on above:Result Comment: Reference range defined for non-centrifuged specimen.Performed By: #### UAMIC ####[facility] Lqhc[address]uq[address] [place], [place] [phone] Director: Brandan Madoff, MDClarity (U)ClearNormalCLEARMerLodi Memorial HospitalComment on above:Performed By: #### UAMIC ####[facility] [address] [place] [address] Lab Director: DANIELLE Wootenolor (U)YellowNormalYELMerLodi Memorial HospitalComment on above:Performed By: #### UAMIC ####[facility] [address] [place] [address] Lab Director: Brandan Ugalde MDEpithelial cells LM Ql (Urine sed)0 TO 8Bkfzzd4-3IdglkProtestant Deaconess HospitalComment on above:Performed By: #### UAMIC ####[facility] [address] [place] [address] [phone] Director: Brandan Ugalde MDGlucose Ql (U)TRACEAbnormalNEGProtestant Deaconess HospitalComment on above:Performed By: #### UAMIC ####[facility] [address] [place] [address] Lab Director: Brandan Ugalde MDKetones Ql (U)Negative NormalNEGProtestant Deaconess HospitalComment on above:Performed By: #### UAMIC ####[facility] [address] [place] [address] Lab Director: Brandan Ugalde MDLeukocyte esterase Test strip Ql (U)NegativeNormal NEGProtestant Deaconess HospitalComment on above:Performed By: #### UAMIC ####[facility] [address]41 [place] [address] Lab Director: Brandan Ugalde MDNitrite,UrNegativeNormalNEGProtestant Deaconess Hospital Comment on above:Performed By: #### UAMIC ####[facility] [address] [place] [address] Lab Director: DANIEL Wooten,Ur5.5Normal 5.0-8.0[facility]aconess HospitalComment on above:Performed By: #### UAMIC ####[facility] [address]of[address]ioax5792 [place] [address] Lab Director: DANIEL Wootenrotein Ql (U)TRACEAbnormalNEGProtestant Deaconess HospitalComment on above:Performed By: #### UAMIC ####[facility] [address]im[address]ipyipt7311 [place] [address] Lab Director: JACOB Wootenpec. [place],Ur1.406Ublqbz2.005-1.030[facility]aconess HospitalComment on above:Performed By: #### UAMIC ####[facility] [address]xvszm6706 [place] [address] Lab Director: Brandan Ugalde MDUrobilinogen,UrNormalNormal NORMProtestant Deaconess HospitalComment on above:Performed By: #### UAMIC ####[facility] Uxlicjjurzmj1622 [place] [address] Lab Director: Brandan Ugalde MDBLOOD GAS, [facility] [id number] TestNOT REPORTEDMercy HealthCarboxyhemoglobin1.5 %0 - 5 %[facility] HealthComment on above: Reference Range: Non-Smokers 0-2% Average Smoker 2-4% Heavy Smoker <10% [id number] NOT PROVIDEDMer HealthHCO3 (Bld) [Moles/Vol]17.6 mmol/LLow24 - 30 mmol/LMercy HealthInterpretation and review of laboratory resultsAbnormal Mer[facility] HealthMethemoglobinNOT REPORTED0.0 - 1.5 %[facility] HealthModeNOT REPORTED Mercy HealthNegative Base Excess, Ven8.6 mmol/LHigh0.0 - 2.0 mmol/LMercy Health NOTIFICATIONNOT REPORTEDMercy HealthNOTIFICATION TIMENOT REPORTEDMercy HealthO2 Device/Flow/%NOT REPORTEDMercy HealthOxygen saturation in Blood55.1 %Low60.0 - 85.0 %Mercy HealthOxyhemoglobinNOT FFHGZIPZ40.0 - 98.0 %[facility]cy HealthpCO2, Earnest 41.1Mercy HealthpCO2, Earnest, Temp AdjNOT REPORTEDMercy HealthPeep/CpapNOT REPORTED [facility] HealthpH, Ven7.255LowMercy HealthpH, Earnest, Temp AdjNOT REPORTEDMercy Health pO2, Ven26.8LowMercy HealthpO2, Earnest, Temp AdjNOT REPORTEDMercy HealthPositive Base Excess, VenNOT REPORTED0.0 - 2.0 mmol/LMercy HealthPSVNOT REPORTEDMercy HealthPt Temp37.0Mercy HealthPt. PositionNOT REPORTEDMercy HealthRespiratory RateNOT REPORTEDMercy HealthSample SiteNOT REPORTEDMercy HealthSet RateNOT REPORTEDMer HealthText for RespiratoryNOT REPORTEDMer HealthTotal HbNOT PTRWPGLX97.0 - 16.0 g/dlMercy HealthTotal RateNOT REPORTEDMercy HealthVTNOT REPORTEDMer HealthMercy HealthBasic Metab w/rfx MGon 09-35-6536Ahkal gap [Moles/Vol]17 mmol/LNormal9-17[facility] HospitalComment on above: Performed By: #### VBG #### [facility] [address] [place] [address] [employer]: DANIELLE Wootenhloride [Moles/Vol]119 mmol/VMwlj82-199YdufmProtestant Deaconess HospitalComment on above:Performed By: #### VBG #### [employer] [address] [place] [address] [employer]: Brandan Ugalde MDCO2 [Moles/Vol]11 mmol/KHsg10-02SotojProtestant Deaconess HospitalComment on above:Performed By: #### VBG #### [facility] [address] [place] [address] [employer]: DANIEL Wootenotassium [Moles/Vol]4.2 mmol/LNormal3.7-5.3 [facility] HospitalComment on above:Result Comment: SPECIMEN SLIGHTLY HEMOLYZED, RESULTS MAY BE ADVERSELY AFFECTED.Performed By: #### VBG #### [facility] [address] [place] [address] [employer]: JACOB Wootenodium [Moles/Vol]147 mmol/DWofr410-158RgrzzProtestant Deaconess HospitalComment on above:Result Comment: TEST CONFIRMEDPerformed By: #### VBG #### [address] [address] [employer]: Brandan Ugalde MD(cont.)NormalProtestant Deaconess Hospital Comment on above:Result Comment: Average GFR for 40-49 years old: 99 mL/min/1.73sq m Chronic Kidney Disease: <60 mL/min/1.73sq m Kidney failure: <15 mL/min/1.73sq m eGFR calculated using average adult body mass. Additional eGFR calculator available at: http://www.CoCollage/multiple_crcl_2012.htmPerformed By: #### VBG #### [address] [address] [employer]: DANIELLE Wootenalcium [Mass/Vol]8.6 mg/dLNormal8.6-10.4[facility] HospitalComment on above:Performed By: #### VBG #### [address] [address] [employer]: DANIELLE Wootenreatinine [Mass/Vol]2.06 mg/dLHigh0.50-0.90 [facility] HospitalComment on above:Performed By: #### VBG #### [facility] [employer] [address] [place] [address] [employer]: Brandan Ugalde MDGFR, Amer32 mL/minLow>60[facility] HospitalComment on above:Performed By: #### VBG #### [facility] [employer] [address] [place] [address] [employer]: Brandan Ugalde MDGFR,non Amer26 mL/minLow>60[facility] HospitalComment on above:Performed By: #### VBG #### [facility] [place] [address] [employer]er: Brandan Ugalde MDGlucose [Mass/Vol]160 mg/gWHjxi91-97HfzkwMills-Peninsula Medical CenterComment on above:Performed By: #### VBG #### [facility] [address] [place] [address] [employer]: Brandan Ugalde MDUrea nitrogen [Mass/Vol]35 mg/dLHigh6-20[facility] HospitalComment on above:Performed By: #### VBG #### [facility] [address] [place] [address] [employer]: Brandan Ugalde MDBUN/CRE RatioNOT REPORTEDNormal9-20[facility] HospitalComment on above:Performed By: #### VBG #### [facility] [address] [place] [address] [employer]: JACOB Wootentaging:NOT REPORTEDNormalProtestant Deaconess HospitalComment on above:Performed By: #### VBG #### [facility] [address] [place] [address] [employer]: Brandan Ugalde MDBaclark regional medical center Metabolic Panelon [id number] gap [Moles/Vol]13 mmol/L9 - 17 mmol/LMercy HealthCalcium [Mass/Vol]8.9 mg/dL8.6 - 10.4 mg/dLMercy HealthChloride [Moles/Vol]119 mmol/LHigh98 - 107 mmol/LMercy HealthCO2 [Moles/Vol]13 mmol/LLow20 - 31 mmol/LMercy HealthCreatinine [Mass/Vol] 2.05 mg/dLHigh0.50 - 0.90 mg/dLMercy HealthGFR Qdmljkri26 mL/minLow>60 Mer[facility] HealthGFR Non- Mkzalsnw04 mL/minLow>60Mercy HealthGFR/1.73 sq M.predicted MDRD (S/P/Bld) [Vol rate/Area][facility] SystemComment on above:Average GFR for 40-49 years old: 99 mL/min/1.73sq m Chronic Kidney Disease: <60 mL/min/1.73sq m Kidney failure: <15 mL/min/1.73sq m eGFR calculated using average adult body mass. Additional eGFR calculator available at: http://www.CoCollage/multiple_crcl_2012.htm GFR/1.73 sq M.predicted MDRD (S/P/Bld) [Vol rate/Area]NOT REPORTEDAcmc Healthcare System Glucose [Mass/Vol]162 mg/uOVgrd77 - 99 mg/dLAcmc Healthcare SystemInterpretation and review of laboratory resultsAbnormalAcmc Healthcare SystemPotassium [Moles/Vol]3.4 mmol/L Low3.7 - 5.3 mmol/LMercy HealthSodium [Moles/Vol]145 mmol/VKbmj291 - 144 mmol/L [facility] SystemUrea nitrogen (BldV) [Mass/Vol]35 mg/dLHigh6 - 20 mg/dLAcmc Healthcare System Urea nitrogen/Creatinine (Bld) [Mass ratio]NOT REPORTEDAcmc Healthcare SystemBasic Metabolic Panel w/ Reflex to MGon [id number] gap [Moles/Vol]17 mmol/L9 - 17 mmol/LMercy HealthCalcium [Mass/Vol]8.6 mg/dL8.6 - 10.4 mg/dLAcmc Healthcare System Chloride [Moles/Vol]119 mmol/LHigh98 - 107 mmol/LMercy HealthCO2 [Moles/Vol]11 mmol/LLow20 - 31 mmol/LMercy HealthCreatinine [Mass/Vol]2.06 mg/dLHigh0.50 - 0.90 mg/dLZanesville City Hospital HealthGFR Aghaytha11 mL/minLow>60Mercy HealthGFR Non- Xhdggkdc55 mL/minLow>60Mer HealthGFR/1.73 sq M.predicted MDRD (S/P/Bld) [Vol rate/Area][facility] SystemComment on above:Average GFR for 40-49 years old: 99 mL/min/1.73sq m Chronic Kidney Disease: <60 mL/min/1.73sq m Kidney failure: <15 mL/min/1.73sq m eGFR calculated using average adult body mass. Additional eGFR calculator available at: http://www.CoCollage/multiple_crcl_2012.htm GFR/1.73 sq M.predicted MDRD (S/P/Bld) [Vol rate/Area]NOT REPORTEDAcmc Healthcare System Glucose [Mass/Vol]160 mg/xNFqzm68 - 99 mg/dLAcmc Healthcare SystemInterpretation and review of laboratory resultsAbnormalAcmc Healthcare SystemPotassium [Moles/Vol]4.2 mmol/L 3.7 - 5.3 mmol/LMercy HealthComment on above:SPECIMEN SLIGHTLY HEMOLYZED, RESULTS MAY BE ADVERSELY AFFECTED.Sodium [Moles/Vol]147 mmol/GMssi718 - 144 mmol/LMercy St. Anthony'S HospitalComment on above:TEST CONFIRMED Urea nitrogen (BldV) [Mass/Vol]35 mg/dLHigh6 - 20 mg/dLAcmc Healthcare SystemUrea nitrogen/Creatinine (Bld) [Mass ratio]NOT REPORTEDMayo Clinic Health System– OakridgeBasic Metabolic Profon 09-30-2021(cont.)NormalProtestant Deaconess HospitalComment on above:Result Comment: Average GFR for 40-49 years old: 99 mL/min/1.73sq m Chronic Kidney Disease: <60 mL/min/1.73sq m Kidney failure: <15 mL/min/1.73sq m eGFR calculated using average adult body mass. Additional eGFR calculator available at: http://www.CoCollage/multiple_crcl_2012.htmPerformed By: #### VBG #### [facility] [address] [phone] [employer]er: Brandan Ugalde MDAnion gap [Moles/Vol]13 mmol/LNormal9-17[facility] HospitalComment on above:Performed By: #### CHARLYG #### [facility] [address] [place], [place] [phone] [employer]er: DANIELLE Wootenalcium [Mass/Vol]8.9 mg/dLNormal8.6-10.4[facility] HospitalComment on above:Performed By: #### VBG #### [facility] [address] [place] [address] [employer]: DANIELLE Wootenhloride [Moles/Vol]119 mmol/MUrtg11-862ZdzfyProtestant Deaconess HospitalComment on above:Performed By: #### VBG #### [facility] [address] [place] [address] [employer]: Brandan Ugalde MDCO2 [Moles/Vol]13 mmol/PEgn20-67HsayjProtestant Deaconess HospitalComment on above:Performed By: #### VBG #### [facility] [address] [place] [address] [employer]: DANIELLE Wootenreatinine [Mass/Vol]2.05 mg/dLHigh0.50-0.90 [facility] HospitalComment on above:Performed By: #### VBG #### [address] [address] [employer]: Brandan Ugalde MDGFR, Amer32 mL/minLow>60[facility] HospitalComment on above:Performed By: #### VBG #### [address] [address] [employer]: Brandan Ugalde MDGFR,non Amer27 mL/minLow>60[facility] HospitalComment on above:Performed By: #### VBG #### [facility] [address] [place] [address] [employer]: Brandan Ugalde MDGlucose [Mass/Vol]162 mg/wJDylq73-30CfptkMills-Peninsula Medical CenterComment on above:Performed By: #### VBG #### [facility] [address] [place] [address] [employer]: DANIEL Wootenotassium [Moles/Vol]3.4 mmol/LLow3.7-5.3[facility] HospitalComment on above:Performed By: #### VBG #### [facility] [address] [place] [address] [employer]: JACOB Wootenodium [Moles/Vol]145 mmol/HBuau343-190RlxtbProtestant Deaconess HospitalComment on above:Performed By: #### VBG #### [facility] [address] [place] [address] [employer]: Brandan Ugalde MDUrea nitrogen [Mass/Vol]35 mg/dLHigh6-20[facility] HospitalComment on above:Performed By: #### VBG #### [address] [address] [employer]er: CHAVO Wooten/CRE EspinozaOT REPORTEDNormal9-20[facility] HospitalComment on above:Performed By: #### VBG #### [address] [address] [employer]er: JACOB Wootentaging:NOT REPORTEDNormalProtestant Deaconess HospitalComment on above:Performed By: #### VBG #### [address] [address] [employer]: DANIELLE Wooten Auto Differentialon [id number] Eos # 0.03Mercy HealthAbsolute Immature Granulocyte0.05Mercy HealthAbsolute Lymph # 1.19Mercy HealthAbsolute [place] #0.43Mercy HealthBasophils (Bld) [#/Vol]10*3/uL [facility] HealthBasophils/100 WBC (Bld)0 %0 - 2 %Mercy HealthDifferential TypeNOT REPORTEDMercy HealthEosinophils/100 WBC (Bld)1 %1 - 4 %[facility]cy HealthHematocrit (Bld) [Volume fraction]30.9 %Low36.3 - 47.1 %[facility] Hemoglobin.gastrointestinal spec 1 Ql (Stl)10.2 g/dLLow11.9 - 15.1 g/dLAcmc Healthcare SystemImmature granulocytes/100 WBC (Bld)1 %Hwrh1SkufyAcmc Healthcare SystemInterpretation and review of laboratory resultsAbnormalAcmc Healthcare SystemLymphocytes/100 WBC (Bld)28 %24 - 43 %[facility] HospitalH (RBC) [Entitic mass]29.1 pg25.2 - 33.5 pgMercy Health Perrysburg HospitalHC (RBC) [Mass/Vol]33.0 g/dL28.4 - 34.8 g/dLMercy Health Perrysburg HospitalV (RBC) [Entitic vol]88.0 fL82.6 - 102.9 fLAcmc Healthcare SystemMonocytes/100 WBC (Bld)10 %3 - 12 %[facility] SystemNRBC Automated0.00.0 per 100 WBCAcmc Healthcare SystemPlatelet distribution width (Bld) [Ratio] 14.2 %11.8 - 14.4 %[facility] Healthcare SystemPlatelet EstimateNOT REPORTEDAcmc Healthcare SystemPlatelet mean volume (Bld) [Entitic vol]8.5 fL8.1 - 13.5 fLAcmc Healthcare SystemPlatelets (Bld) [#/Vol]70 10*3/uLLowAcmc Healthcare SystemRBC (Bld) [#/Vol]3.51 10*6/uLLow3.95 - 5.11 m/uL [facility] Healthcare SystemRBC (Bld) [#/Vol]NOT REPORTEDAcmc Healthcare SystemSegmented neutrophils/100 WBC (Bld)60 %36 - 65 %[facility] Healthcare SystemSegs Absolute2.60[facility] Healthcare SystemWBC (Bld) [#/Vol] 4.3 10*3/uLAcmc Healthcare SystemWBC (Bld) [#/Vol]NOT REPORTEDMayo Clinic Health System– OakridgeCBC with Diffon [id number]. Basophil<0.99Kjbfsa3.00-0.20[facility] HospitalComment on above:Performed By: #### VBG #### [facility] [address] [place] [address] [employer]er: Karma Wooten.Imm.Granulocyte0.05 k/uLNormal0.00-0.30[facility] HospitalComment on above:Performed By: #### VBG #### [place] [address] [employer]er: Karma Wooten.Neutrophil (Seg)2.60 k/uLNormal1.50-8.10 [facility] HospitalComment on above:Performed By: #### VBG #### [place] [address] [employer]er: Brandan Ugalde MDBasophils/100 WBC (Bld)0 %Normal0-2MMills-Peninsula Medical CenterComment on above:Performed By: #### VBG #### [place] [address] [employer]er: Brandan Ugalde MDEosinophils (Bld) [#/Vol]0.03 10*3/uLNormal 0.00-0.44[facility] HospitalComment on above:Performed By: #### VBG #### [place] [address] [employer]: Brandan Ugalde MDEosinophils/100 WBC (Bld)1 %Normal1-4[facility] HospitalComment on above:Performed By: #### VBG #### [place] [address] [employer]er: Brandan Ugalde MDErythrocyte distribution width (RBC) [Ratio]14.2 %Qfrocz22.8-14.4[facility] HospitalComment on above:Performed By: #### VBG #### [place] [address] [employer]er: Brandan Ugalde MDHematocrit (Bld) [Volume fraction]30.9 %Low 36.3-47.1MMills-Peninsula Medical CenterComment on above:Performed By: #### VBG #### [address] [address] [employer]: Brandan Ugalde MDHemoglobin (Bld) [Mass/Vol]10.2 g/dLLow11.9-15.1 [facility] HospitalComment on above:Performed By: #### VBG #### [address] [address] [employer]: Brandan Ugalde MDImmature granulocytes/100 WBC (Bld)1 %Fffd3EtnkdProtestant Deaconess HospitalComment on above:Performed By: #### VBG #### [address] [address] [employer]er: Brandan Ugalde MDLymphocytes (Bld) [#/Vol]1.19 10*3/uLNormal 1.10-3.70[facility] HospitalComment on above:Performed By: #### VBG #### [address] [address] [employer]er: German Wootenmphocytes/100 WBC (Bld)28 %Rpqhwe85-49VuvmmProtestant Deaconess HospitalComment on above:Performed By: #### VBG #### [address] [address] [employer]: GAVIN WootenCH (RBC) [Entitic mass]29.1 jcRrezlr48.2-33.5 [facility] HospitalComment on above:Performed By: #### VBG #### [address] [address] [employer]er: GAVIN WootenCHC (RBC) [Mass/Vol]33.0 g/hCUlfiuq51.4-34.8 [facility] HospitalComment on above:Performed By: #### VBG #### [address] [address] [employer]er: GAVIN WootenCV (RBC) [Entitic vol]88.0 zKVpmtnj92.6-102.9 [facility] HospitalComment on above:Performed By: #### VBG #### [address] [address] [employer]: GAVIN Wootenonocytes (Bld) [#/Vol]0.43 10*3/uLNormal 0.10-1.20[facility] HospitalComment on above:Performed By: #### VBG #### [address] [address] [employer]er: GAVIN Wootenonocytes/100 WBC (Bld)10 %Normal3-12[facility] HospitalComment on above:Performed By: #### VBG #### [address] [address] [employer]: Brandan Ugalde MDNeutrophil (Seg)60 %Xwzqut34-71EuyhzProtestant Deaconess HospitalComment on above:Performed By: #### VBG #### [address] [address] [employer]: Brandan Ugalde MDNRBC Automated0.0 per 100 WBCNormal0.0[facility] HospitalComment on above:Performed By: #### VBG #### [address] [address] [employer]: DANIEL Wootenlatelet mean volume (Bld) [Entitic vol]8.5 fL Normal8.1-13.5[facility] HospitalComment on above:Performed By: #### VBG #### [address] [address] [employer]er: Robert Wooten (Bld) [#/Vol]70 10*3/hNFjz339-599ElnyoProtestant Deaconess HospitalComment on above:Performed By: #### VBG #### [facility] [employer] [address] [place] [address] [employer]er: BAKARI Wooten (Bld) [#/Vol]3.51 10*6/uLLow3.95-5.11[facility] HospitalComment on above:Performed By: #### VBG #### [facility] [address] [place] [address] [employer]: MISTY Wooten (Bld) [#/Vol]4.3 10*3/uLNormal3.5-11.3[facility] HospitalComment on above:Performed By: #### VBG #### [address] [address] [employer]: Laxmi Wooten PerformedNOT REPORTEDNormalProtestant Deaconess HospitalComment on above:Performed By: #### VBG #### [facility] [employer] [address] [place] [address] [employer]: Isabell Wooten CommentNOT REPORTEDNormalProtestant Deaconess HospitalComment on above:Performed By: #### VBG #### [facility] [employer] [address] [place] [address] [employer]: BAKARI Wooten morphology finding Nom (Bld)NOT REPORTED NormalProtestant Deaconess HospitalComment on above:Performed By: #### VBG #### [facility] [employer] [address] [place] [address] [employer]er: MISTY Wooten MorphologyNOT REPORTEDNormalProtestant Deaconess HospitalComment on above:Performed By: #### VBG #### [facility] [address] [place] [address] [employer]er: DANIELLE Wootenult,Urineon [id number],UrineSpecimen Description .CLEAN CATCH URINE Special Requests NOT REPORTED Culture YEAST, NOT SHENG ALBICANS OR SHENG DUBLINIENSIS 10 to 50,000 CFU/ML YEAST, NOT SHENG ALBICANS OR SHENG DUBLINIENSIS 10 to 50,000 CFU/ML DIFFERENT COLONY MORPHOLOGY Report Status FINAL 2AbnCincinnati Children's Hospital Medical CenterComment on above:Performed By: #### VBG #### [facility] [address] [place] [id number] [employer]: DANIELLE Wootenulture, Urineon [id number] identified Cx Nom (U)YEAST, NOT SHENG ALBICANS OR SHENG DUBLINIENSIS 10 to 50,000 CFU/MLAbnormalMercy HealthBacteria identified Cx Nom (U)YEAST, NOT SHENG ALBICANS OR SHENG DUBLINIENSIS 10 to 50,000 CFU/ML DIFFERENT COLONY MORPHOLOGY AbnormalMercy HealthInterpretation and review of laboratory resultsAbnormalMercy HealthSpecial RequestsNOT REPORTEDMercy HealthSpecimen Description.CLEAN CATCH URINEMercy HealthMercy HealthElectrolyte Panelon [id number] gap [Moles/Vol] 11 mmol/L9 - 17 mmol/LMercy HealthChloride [Moles/Vol]115 mmol/LHigh98 - 107 mmol/LMercy HealthCO2 [Moles/Vol]16 mmol/LLow20 - 31 mmol/LMercy Health Interpretation and review of laboratory resultsAbnormalMercy HealthPotassium [Moles/Vol]3.5 mmol/LLow3.7 - 5.3 mmol/LMercy HealthSodium [Moles/Vol]142 mmol/L 135 - 144 mmol/LMercy HealthMercy HealthElectrolyteson 04-31-4721Njgah gap [Moles/Vol]11 mmol/LNormal9-17Pro[facility]aconess HospitalComment on above: Performed By: #### VBG #### [employer] [address] [place] [address] [phone] Electric Organ Assembler [employer] Checker: Brandan Madoff, MDChloride [Moles/Vol]115 mmol/XOags89-868KjfwxProtestant Deaconess HospitalComment on above:Performed By: #### VBG #### [facility] [address] [place] [address] [employer]er [employer] Checker: Brandan Ugalde MDCO2 [Moles/Vol]16 mmol/PAeq28-53HiscpProtestant Deaconess HospitalComment on above:Performed By: #### VBG #### [facility] [address] [place] [address] Electric Organ Assembler [employer] Checker: Brandan Ugalde MDPotassium [Moles/Vol]3.5 mmol/LLow3.7-5.3MMills-Peninsula Medical CenterComment on above:Performed By: #### VBG #### [address] [address] [employer] Assembler [employer] Checker: Brandan Ugalde MDSodium [Moles/Vol]142 mmol/MYehgnr001-141GpbzzProtestant Deaconess HospitalComment on above:Performed By: #### VBG #### [address] [address] Electric Organ Assembler [employer] Checker: Brandan Ugalde MDHemoglobin A1Con 71-81-7227Dbyyosw [Mass/Vol]390 mg/dLNormalProtestant Deaconess HospitalComment on above:Result Comment: The ADA and AACC recommend providing the estimated average glucose result to permit better patient understanding of their HBA1c result.Performed By: #### VBG #### [address] [address] [employer]sembler [employer] Checker: Brandan Ugalde MDHbA1c (Bld) [Mass fraction]15.2 %High4.0-6.0 [facility] HospitalComment on above:Performed By: #### VBG #### [facility] [employer] [address] [place] [address] Electric [employer] Assembler [employer] Checker: Brandan Ugalde MDGlucose [Mass/Vol]390 mg/dLMercy HealthComment on above:The ADA and AACC recommend providing the estimated average glucose result to permit better patient understanding of their HBA1c result. HbA1c (Bld) [Mass fraction]15.2 %High4.0 - 6.0 %[facility] Healthcare SystemInterpretation and review of laboratory resultsAbnormOhioHealth Arthur [facility] HealthMAGNESIUMon 56-95-7485Ipiokephm [Mass/Vol]1.8 mg/dL1.6 - 2.6 mg/dLAcmc Healthcare SystemMagnesiumon 91-68-4931Zborsshcu [Mass/Vol]1.8 mg/dLNormal1.6-2.6[facility] Marine HospitalComment on above:Performed By: #### VBG #### [employer] [address] [place] [address] Electric [employer] Assembler [employer] Checker: Brandan Ugalde MDNo Panel Informationon 00-62-9124Mepmm HealthPOC Glucose Fingerstickon 74-00-9544Esjvrcp [Mass/Vol]150 mg/nIDepx17 - 105 mg/dL [facility] Healthcare SystemInterpretation and review of laboratory resultsAbnoAscension Eagle River Memorial HospitalGlucose [Mass/Vol]177 mg/zZAwdo91 - 105 mg/dLAcmc Healthcare System Interpretation and review of laboratory resultsAbAurora [facility] in [facility] Glucose [Mass/Vol]148 mg/xYDsuz90 - 105 mg/dLZanesville City Hospital HealthInterpretation and review of laboratory resultsAbnoAurora Medical Center– BurlingtonGlucose [Mass/Vol] 210 mg/fNIpsq41 - 105 mg/dLZanesville City Hospital HealthInterpretation and review of laboratory resultsAbAurora Medical Center in SummitSPECIMEN REJECTIONon 09-30-2021-NOT REPORTEDMerOlympic Memorial HospitalOrdered TestCDPMDetwiler Memorial HospitalReason for RejectionUnable to perform testing: Specimen clotted.[facility] Healthcare SystemComment on above:GEORGINA MONTERO NOTIFIED Specimen source Nom (Unsp spec).[facility] HealthSpecimen Rejection on [id number] for rejectionUnable to perform testing: Specimen clotted. [facility] Bucyrus HospitalComment on above:Result Comment: GEORGINA MONTERO NOTIFIEDPerformed By: #### VBG #### [facility] [address] [place] [address] [employer] Assembler [employer] Checker: Devin Wooten of sample.BLOODAvita Health System Bucyrus HospitalComment on above:Performed By: #### VBG #### [facility] [address] [place] [address] Electric [employer] Assembler [employer] Checker: Brandan Ugalde MDTest orderedCDPNormalProtestant Deaconess HospitalComment on above:Performed By: #### VBG #### [facility] [address] [place] [address] Electric [employer] Assembler [employer] Checker: Brandan Ugalde MD-----NOT REPORTEDAvita Health System Bucyrus HospitalComment on above:Performed By: #### VBG #### [address] [address] Electric [employer] Assembler [employer] Checker: Brandan Ugalde MDUrinalysis w/ Microon 11-58-5812Tghkjkdgp sediment LM Ql (Urine sed)NOT REPORTEDSsm Health CarealClermont County Hospital Comment on above:Performed By: #### UAMIC ####[facility] [address] [place] [address] [phone] Director: Brandan Ugalde MDBacteriaNOT REPORTEDNormalClermont County HospitalComment on above:Performed By: #### UAMIC ####[facility] [address] [place] [address] [phone] Director: DANIELLE Wootenrystals LM Nom (Urine sed)NOT REPORTED NormalClermont County HospitalComment on above:Performed By: #### UAMIC ####[facility] [address] [place], [place] [phone] Director: Brandan Ugalde MDEpithelial, RenalNOT IGSXVEQOIxhhav7DhdjtProtestant Deaconess HospitalComment on above:Performed By: #### UAMIC ####[facility] [address] [place], [place] [phone] Director: Ana Wooten StrandsNOT REPORTEDNormalNONEMeVictor Valley Hospital Comment on above:Performed By: #### UAMIC ####[facility] [address] [place] [address] Lab Director: Brandan Ugalde MDOther ObservationsNOT REPORTEDNormalNREQProtestant Deaconess HospitalComment on above:Performed By: #### UAMIC ####[facility] [address] [place], [place] [phone] Director: Chaya WootenhomonasNOT REPORTEDNormal NONEProtestant Deaconess HospitalComment on above:Performed By: #### UAMIC ####[facility] [address]ttmruz[address] [place] [address] Lab Director: Brandan Ugalde MDVenous Blood Gaseson 65-66-9618Hhus Temp.37.0NoMercy Health Clermont HospitalComment on above:Performed By: #### VBG #### [facility] [address] [place] [address] Electric [employer] Assembler [employer] Checker: Kenji Wooten Hgb1.5 %Normal0-5Pro[facility] Deaconess HospitalComment on above:Result Comment: Reference Range: Non-Smokers 0-2% Average Smoker 2-4% Heavy Smoker <10%Performed By: #### VBG #### [facility] [address] [place] [address] [employer] Assembler [employer] Checker: Brandan Ugalde MDFIO2INFORMATION NOT PROVIDEDNoMercy Health Clermont HospitalComment on above:Performed By: #### VBG #### [facility] [address] [place] [address] Electric [employer] Assembler [employer] Checker: Brandan Ugalde MDHCO3 (Bld) [Moles/Vol]17.6 mmol/XIjc74-05LmzhdProtestant Deaconess HospitalComment on above:Performed By: #### VBG #### [facility] [address] [place] [address] Electric [employer]sembler [employer] Checker: Brandan Ugalde MDNegative Base Excess8.6 mmol/LHigh0.0-2.0Pro[facility]aconess HospitalComment on above:Performed By: #### VBG #### [address] [address] Electric Organ Assembler [employer] Checker: Brandan Ugalde MDOxygen (Bld) [Partial pressure]26.8 mm[Hg]Low 30-50Pro[facility] Deaconess HospitalComment on above:Performed By: #### VBG #### [address] [address] [employer]sembler [employer] Checker: Brandan Ugalde MDOxygen saturation in Blood55.1 %Low60.0-85.0 [facility] HospitalComment on above:Performed By: #### VBG #### [address] [address] Electric [employer] Assembler [employer] Checker: Daniel WootenCO241.2Nwijvk90-14WauszProtestant Deaconess HospitalComment on above:Performed By: #### VBG #### [address] [address] Electric [employer] Assembler [employer] Checker: Daniel Wooten (Bld)7.255 [pH]Low7.320-7.420Pro[facility] Deaconess HospitalComment on above:Performed By: #### VBG #### [address] [address] Electric [employer] Assembler [employer] Checker: Miguel Wooten TestNOT REPORTEDNormalProtestant Deaconess HospitalComment on above:Performed By: #### VBG #### [address] [address] Electric [employer] Assembler [employer] Checker: GAVIN WootenethemoglobinNOT REPORTEDNormal0.0-1.5Pro[facility]aconess HospitalComment on above:Performed By: #### VBG #### [address] [address] Electric [employer] Assembler [employer] Checker: GAVIN WootenodeNOT REPORTEDNormalProtestant Deaconess HospitalComment on above:Performed By: #### VBG #### [address] [address] Electric [employer] Assembler [employer] Checker: Brandan Ugalde MDNotification TimeNOT REPORTEDNormalProtestant Deaconess HospitalComment on above:Performed By: #### VBG #### [address] [address] Electric [employer] Assembler [employer] Checker: Brandan Ugalde MDNotification:NOT REPORTEDNormalProtestant Deaconess HospitalComment on above:Performed By: #### VBG #### [address] [address] Electric [employer] Assembler [employer] Checker: Brandan Ugalde MDO2 Device/Flow/%NOT REPORTEDAvita Health System Bucyrus HospitalComment on above:Performed By: #### VBG #### [address] [address] Electric [employer] Assembler [employer] Checker: Brandan Ugalde MDOxyhemoglobinNOT BOJJORQUXqpeng85.0-98.0Pro[facility]aconess HospitalComment on above:Performed By: #### VBG #### [address] [address] Electric Organ Assembler And Checker: DANIEL Wootenco2 Adj'd for Temp.NOT ISAJDJQYUrptgp33-16HbpehProtestant Deaconess HospitalComment on above:Performed By: #### VBG #### [address] [address] Electric Organ Assembler [employer] Checker: DANIEL WootenEEP/CPAPNOT REPORTEDSsm Health CarealProtestant Deaconess HospitalComment on above:Performed By: #### VBG #### [facility] [address] [place] [address] Electric Organ Assembler [employer] Checker: Daniel Wooten Adjst'd for Temp.NOT REPORTEDNormal 7.320-7.420Pro[facility]acon[facility] HospitalComment on above:Performed By: #### VBG #### [facility] [employer] [address] [place] [address] Electric Organ Assembler [employer] Checker: Daniel Wooten Adj'd for Temp.NOT TPIXXTKQEuovkn94-17XeaukProtestant Deaconess HospitalComment on above:Performed By: #### VBG #### [facility] [employer] [address] [place] [address] Electric Organ Assembler And Checker: Dorita Wootentive Base ExcessNOT REPORTEDNormal0.0-2.0 [facility] HospitalComment on above:Performed By: #### VBG #### [facility] [employer] [address] [place] [address] Electric Organ Assembler And Checker: DANIEL WootenSVNOT REPORTEDNormalProtestant Deaconess HospitalComment on above:Performed By: #### VBG #### [facility] [employer] [address] [place] [address] Electric Organ Assembler And Checker: ADNIEL Wootent. PositionNOT REPORTEDNormalProtestant Deaconess HospitalComment on above:Performed By: #### VBG #### [facility] [address] [place] [address] Electric Organ Assembler [employer] Checker: Bakari Wooten RateNOT REPORTEDNormalProtestant Deaconess HospitalComment on above:Performed By: #### VBG #### [facility] [employer] [address] [place] [address] Electric Organ Assembler And Checker: Stanislaw Wooten RateNOT REPORTEDNormalMerLodi Memorial HospitalComment on above:Performed By: #### VBG #### [facility] [address] [place] [address] Electric [employer] Assembler [employer] Checker: Lindsey Wooten DrawnNOT REPORTEDNormalProtestant Deaconess HospitalComment on above:Performed By: #### VBG #### [facility] [address] [place] [address] Electric [employer] Assembler [employer] Checker: Brandan Ugalde MDText for RespiratoryNOT REPORTEDNormalProtestant Deaconess HospitalComment on above:Performed By: #### VBG #### [facility] [address] [place] [address] Electric Organ Assembler [employer] Checker: Constantine Wooten HbNOT CMJOPCNDJxzhve17.0-16.0[facility] HospitalComment on above:Performed By: #### VBG #### [facility] [address] [place] [address] Electric Organ Assembler [employer] Checker: Constantine Wooten RateNOT REPORTEDNormalProtestant Deaconess HospitalComment on above:Performed By: #### VBG #### [facility] [address] [place] [address] Electric [employer] Assembler [employer] Checker: DEMAR Wooten REPORTEDAvita Health System Bucyrus HospitalComment on above:Performed By: #### VBG #### [facility] [employer] [address] [place] [address] Electric [employer] Assembler [employer] Checker: Drew Wooten Metabolic Panelon 70-51-0111Xmgoq gap [Moles/Vol]11 mmol/L9 - 17 mmol/LMercy HealthCalcium [Mass/Vol]7.8 mg/dLLow8.6 - 10.4 mg/dLMercy HealthChloride [Moles/Vol]106 mmol/L98 - 107 mmol/LMercy Health CO2 [Moles/Vol]12 mmol/LLow20 - 31 mmol/LMercy HealthCreatinine [Mass/Vol]2.3 mg/dLHigh0.50 - 0.90 mg/dLMercy HealthGFR Zdhhyrex51 mL/minLow>60Mercy HealthGFR Non- Fxlyxmvf46 mL/minLow>60Mercy HealthGFR/1.73 sq M.predicted MDRD (S/P/Bld) [Vol rate/Area][facility] Healthcare SystemComment on above:Average GFR for 40- 49 years old: 99 mL/min/1.73sq m Chronic Kidney Disease: <60 mL/min/1.73sq m Kidney failure: <15 mL/min/1.73sq m eGFR calculated using average adult body mass. Additional eGFR calculator available at: http://www.[employer]/multiple_crcl_2012.htm GFR/1.73 sq M.predicted MDRD (S/P/Bld) [Vol rate/Area]NOT REPORTEDAcmc Healthcare System Glucose [Mass/Vol]301 mg/oOUwys96 - 99 mg/dLZanesville City Hospital HealthInterpretation and review of laboratory resultsAbnormalZanesville City Hospital HealthPotassium [Moles/Vol]4.1 mmol/L 3.7 - 5.3 mmol/LMercy HealthComment on above:SPECIMEN SLIGHTLY HEMOLYZED, RESULTS MAY BE ADVERSELY AFFECTED.Sodium [Moles/Vol]129 mmol/XIco882 - 144 mmol/LMercy HealthUrea nitrogen (BldV) [Mass/Vol]32 mg/dLHigh6 - 20 mg/dLZanesville City Hospital HealthUrea nitrogen/Creatinine (Bld) [Mass ratio]NOT REPORTEDAcmc Healthcare SystemAnion gap [Moles/Vol]11 mmol/L9 - 17 mmol/LMercy HealthCalcium [Mass/Vol]8.0 mg/dLLow 8.6 - 10.4 mg/dLZanesville City Hospital HealthChloride [Moles/Vol]110 mmol/LHigh98 - 107 mmol/L [facility] Healthcare SystemCO2 [Moles/Vol]12 mmol/LLow20 - 31 mmol/LMercy HealthCreatinine [Mass/Vol]2.29 mg/dLHigh0.50 - 0.90 mg/dLZanesville City Hospital HealthGFR Dfzavcob57 mL/minLow>60Mercy HealthGFR Non- Kxwxhhws30 mL/minLow>60Mer Health GFR/1.73 sq M.predicted MDRD (S/P/Bld) [Vol rate/Area][facility] Healthcare SystemCommymichigan medical center on above:Average GFR for 40-49 years old: 99 mL/min/1.73sq m Chronic Kidney Disease: <60 mL/min/1.73sq m Kidney failure: <15 mL/min/1.73sq m eGFR calculated using average adult body mass. Additional eGFR calculator available at: http://www.[employer]Collage/Brammo_crcl_2012.htm GFR/1.73 sq M.predicted MDRD (S/P/Bld) [Vol rate/Area]NOT REPORTEDAcmc Healthcare System Glucose [Mass/Vol]217 mg/cJIyti31 - 99 mg/dLZanesville City Hospital HealthInterpretation and review of laboratory resultsAbnormalMer HealthPotassium [Moles/Vol]3.4 mmol/L Low3.7 - 5.3 mmol/LMercy HealthSodium [Moles/Vol]133 mmol/WJkr163 - 144 mmol/L [facility] Healthcare SystemUrea nitrogen (BldV) [Mass/Vol]32 mg/dLHigh6 - 20 mg/dLAcmc Healthcare System Urea nitrogen/Creatinine (Bld) [Mass ratio]NOT REPORTEDMer HealthAnion gap [Moles/Vol]7 mmol/LLow9 - 17 mmol/LMercy HealthCalcium [Mass/Vol]8.0 mg/dLLow8.6 - 10.4 mg/dLMercy HealthChloride [Moles/Vol]113 mmol/LHigh98 - 107 mmol/LMercy HealthCO2 [Moles/Vol]13 mmol/LLow20 - 31 mmol/LMercy HealthCreatinine [Mass/Vol] 2.39 mg/dLHigh0.50 - 0.90 mg/dLMercy HealthGFR Dviuqlve19 mL/minLow>60 Mer[facility] HealthGFR Non- Serkfusv00 mL/minLow>60Mercy HealthGFR/1.73 sq M.predicted MDRD (S/P/Bld) [Vol rate/Area][facility] Healthcare SystemComment on above:Average GFR for 40-49 years old: 99 mL/min/1.73sq m Chronic Kidney Disease: <60 mL/min/1.73sq m Kidney failure: <15 mL/min/1.73sq m eGFR calculated using average adult body mass. Additional eGFR calculator available at: http://www.[employer]/multiple_crcl_2012.htm GFR/1.73 sq M.predicted MDRD (S/P/Bld) [Vol rate/Area]NOT REPORTEDAcmc Healthcare System Glucose [Mass/Vol]127 mg/mKIzyd84 - 99 mg/dLAcmc Healthcare SystemPotassium [Moles/Vol]3.7 mmol/L3.7 - 5.3 mmol/LMercy HealthComment on above:SPECIMEN SLIGHTLY HEMOLYZED, RESULTS MAY BE ADVERSELY AFFECTED.Sodium [Moles/Vol]133 mmol/LNqf788 - 144 mmol/LMercy HealthUrea nitrogen (BldV) [Mass/Vol]32 mg/dLHigh6 - 20 mg/dLAcmc Healthcare SystemUrea nitrogen/Creatinine (Bld) [Mass ratio]NOT REPORTEDSCCI Hospital Limasi Metabolic Profon 09-29-2021(cont.)NormalProtestant Deaconess HospitalComment on above:Result Comment: Average GFR for 40-49 years old: 99 mL/min/1.73sq m Chronic Kidney Disease: <60 mL/min/1.73sq m Kidney failure: <15 mL/min/1.73sq m eGFR calculated using average adult body mass. Additional eGFR calculator available at: http://www.[employer]/multiple_crcl_2011.htmPerformed By: #### EMILIO CASTANEDA BMP #### [employer] [address] [place] [address] Electric Organ Assembler [employer] Checker: Brandan Ugalde MDAnion gap [Moles/Vol]11 mmol/LNormal9-17[facility] HospitalComment on above:Performed By: #### EMILIO CASTANEDA BMP #### [employer] [address] [place] [address] Electric Organ Assembler [employer] Checker: DANIELLE Wootenalcium [Mass/Vol]7.8 mg/dLLow8.6-10.4[facility] HospitalComment on above:Performed By: #### EMILIO CASTANEDA BMP #### [employer] [address] [place] [address] Electric Organ Assembler [employer] Checker: DANIELLE Wootenhloride [Moles/Vol]106 mmol/BJyavnv95-835OhqwoProtestant Deaconess HospitalComment on above:Performed By: #### CDP, IPF, BMP #### [facility] [address] [place] [address] Electric [employer] Assembler [employer] Checker: Brandan Ugalde MDCO2 [Moles/Vol]12 mmol/WRwp21-90SpnczProtestant Deaconess HospitalComment on above:Performed By: #### CDP, IPF, BMP #### [facility] [address] [place] [address] [employer]er [employer] Checker: DANIELLE Wootenreatinine [Mass/Vol]2.30 mg/dLHigh0.50-0.90 [facility] HospitalComment on above:Performed By: #### CDP, IPF, BMP #### [facility] [employer] [address] [place] [address] Electric [employer] Assembler [employer] Checker: Brandan Ugalde MDGFR, Amer28 mL/minLow>60[facility] HospitalComment on above:Performed By: #### LEONEL, IPF, BMP #### [facility] [address] [place] [address] [employer]er [employer] Checker: Brandan Ugalde MDGFR,non Amer23 mL/minLow>60[facility] HospitalComment on above:Performed By: #### LEONEL, IPF, BMP #### [address] [address] Electric [employer] Assembler [employer] Checker: Brandan Ugalde MDGlucose [Mass/Vol]301 mg/iLZldd36-26WresqMills-Peninsula Medical CenterComment on above:Performed By: #### CDP, IPF, BMP #### [facility] [address] [place] [address] Electric [employer] Assembler [employer] Checker: Brandan Ugalde MDPotassium [Moles/Vol]4.1 mmol/LNormal3.7-5.3 [facility] HospitalComment on above:Result Comment: SPECIMEN SLIGHTLY HEMOLYZED, RESULTS MAY BE ADVERSELY AFFECTED.Performed By: #### CDP, IPF, BMP #### [facility] [address] [place] [address] Electric [employer] Assembler [employer] Checker: JACOB Wootenodium [Moles/Vol]129 mmol/ECog184-588XolixProtestant Deaconess HospitalComment on above:Performed By: #### CDP, IPF, BMP #### [facility] [address] [place] [address] [employer]sembler [employer] Checker: Brandan Ugalde MDUrea nitrogen [Mass/Vol]32 mg/dLHigh6-20[facility] HospitalComment on above:Performed By: #### CDP, IPF, BMP #### [facility] [address] [place] [address] Electric [employer] Assembler [employer] Checker: Brandan Ugalde MDBUN/CRE RatioNOT REPORTEDNoal9-20[facility] HospitalComment on above:Performed By: #### CDP, IPF, BMP #### [facility] [address] [place] [address] Electric [employer] Assembler [employer] Checker: JACOB Wootentaging:NOT REPORTEDNoalProtestant Deaconess HospitalComment on above:Performed By: #### CDP, IPF, BMP #### [facility] [address] [place] [address] Electric [employer] Assembler [employer] Checker: Brandan Ugalde MD(cont.)[facility] Comment on above:Result Comment: Average GFR for 40-49 years old: 99 mL/min/1.73sq m Chronic Kidney Disease: <60 mL/min/1.73sq m Kidney failure: <15 mL/min/1.73sq m eGFR calculated using average adult body mass. Additional eGFR calculator available at: http://www.biix, Inc[employer]com/multiple_crcl_2012.htmPerformed By: #### CDP, IPF, BMP #### [facility] [address] [place] [address] Electric [employer]sembler [employer] Checker: Oksana Wooten gap [Moles/Vol]11 mmol/LNormal9-17[facility] HospitalComment on above:Performed By: #### CDP, IPF, BMP #### [facility] [address] [place] [address] Electric [employer] Assembler [employer] Checker: DANIELLE Wootenalcium [Mass/Vol]8.0 mg/dLLow8.6-10.4[facility] HospitalComment on above:Performed By: #### CDP, IPF, BMP #### [facility] [address] [place] [address] Electric [employer] Assembler [employer] Checker: Brandan Ugalde MDChloride [Moles/Vol]110 mmol/LUbzw48-153MoljlProtestant Deaconess HospitalComment on above:Performed By: #### CDP, IPF, BMP #### [facility] [employer] [address] [place] [address] Electric Organ Assembler [employer] Checker: Brandan Ugalde MDCO2 [Moles/Vol]12 mmol/AKph18-47AqvhnProtestant Deaconess HospitalComment on above:Performed By: #### LEONEL, IPF, BMP #### [facility] [employer] [address] [place] [address] Electric [employer] Assembler And Checker: DANIELLE Wootenreatinine [Mass/Vol]2.29 mg/dLHigh0.50-0.90 [facility] HospitalComment on above:Performed By: #### CDP, IPF, BMP #### [facility] [employer] [address] [place] [address] Electric [employer] Assembler [employer] Checker: BRAIN Wooten, Amer28 mL/minLow>60[facility] HospitalComment on above:Performed By: #### CDP, IPF, BMP #### [facility] [employer] [address] [place] [address] Electric [employer] Assembler [employer] Checker: BRAIN Wooten,non Amer23 mL/minLow>60[facility] HospitalComment on above:Performed By: #### CDP, IPF, BMP #### [facility] [address] [place] [address] Electric [employer] Assembler [employer] Checker: Brandan Ugalde MDGlucose [Mass/Vol]217 mg/jXCcky99-65CpgumMills-Peninsula Medical CenterComment on above:Performed By: #### CDP, IPF, BMP #### [facility] [address] [place] [address] Electric [employer] Assembler [employer] Checker: DANIEL Wootenotassium [Moles/Vol]3.4 mmol/LLow3.7-5.3[facility] HospitalComment on above:Performed By: #### LEONEL, IPF, BMP #### [facility] [address] [place] [address] Electric [employer] Assembler [employer] Checker: JACOB Wootenodium [Moles/Vol]133 mmol/ABmd152-671AayubProtestant Deaconess HospitalComment on above:Performed By: #### LEONEL, IPF, BMP #### [facility] [address] [place] [address] Electric [employer] Assembler [employer] Checker: Brandan Ugalde MDUrea nitrogen [Mass/Vol]32 mg/dLCabell Huntington Hospital6-20[facility]ess HospitalComment on above:Performed By: #### CDP, IPF, BMP #### [facility] [address] [place] [address] Electric [employer]er [employer] Checker: CHAVO Wooten/CRE RatioNOT REPORTEDNormal9-20[facility] HospitalComment on above:Performed By: #### CDP, IPF, BMP #### [facility] [address] [place] [address] 15212 Electric Organ Assembler [employer] Checker: JACOB Wootentaging:NOT REPORTEDNormalProtestant Deaconess HospitalComment on above:Performed By: #### CDP, IPF, BMP #### [facility] [address] [place] [address]3666 Electric Organ Assembler [employer] Checker: Brandan Ugalde MD(cont.)[facility] Comment on above:Result Comment: Average GFR for 40-49 years old: 99 mL/min/1.73sq m Chronic Kidney Disease: <60 mL/min/1.73sq m Kidney failure: <15 mL/min/1.73sq m eGFR calculated using average adult body mass. Additional eGFR calculator available at: http://www.[employer]/multiple_crcl_2012.htmPerformed By: #### EMILIO CASTANEDA, BMP #### [facility] [address] [place] [address] 19383 Electric Organ [employer]sembler [employer] Checker: Brandan Ugalde MDAnion gap [Moles/Vol]7 mmol/LLow9-17[facility] HospitalComment on above:Performed By: #### EMILIO CASTANEDA, BMP #### [facility] [address] [place] [address] 49986 Electric Organ Assembler [employer] Checker: DANIELLE Wootenalcium [Mass/Vol]8.0 mg/dLLow8.6-10.4[facility] HospitalComment on above:Performed By: #### LEONEL IPF, BMP #### [facility] [address] [place] [address]959 Electric Organ Assembler [employer] Checker: Brandan Ugalde MDChloride [Moles/Vol]113 mmol/ZGdem79-686NowetProtestant Deaconess HospitalComment on above:Performed By: #### LEONEL IPF, BMP #### [facility] [address] [place] [address]116 Electric Organ Assembler [employer] Checker: Brandan Ugalde MDCO2 [Moles/Vol]13 mmol/UVio97-15WnwmrProtestant Deaconess HospitalComment on above:Performed By: #### LEONEL IPF, BMP #### [facility] [address] [place] [address] 06423 Electric Organ Assembler [employer] Checker: Brandan Ugalde MDCreatinine [Mass/Vol]2.39 mg/dLHigh0.50-0.90 [facility] HospitalComment on above:Performed By: #### CDP, IPF, BMP #### [facility] [address] [place] [address] 83588 Electric Organ Assembler [employer] Checker: Brandan Ugalde MDGFR, Amer27 mL/minLow>60[facility] HospitalComment on above:Performed By: #### CDP, IPF, BMP #### [facility] [address] [place] [address] 89908 Electric Organ Assembler [employer] Checker: Brandan Ugalde MDGFR,non Amer22 mL/minLow>60MerLodi Memorial HospitalComment on above:Performed By: #### CDP, IPF, BMP #### [facility] [address] [place] [address] 64383 Electric Organ Assembler [employer] Checker: Brandan Ugalde MDGlucose [Mass/Vol]127 mg/dWGzda11-63[facility] Marine HospitalComment on above:Performed By: #### LEONEL, IPF, BMP #### [address] [address] Electric Organ Assembler [employer] Checker: DANIEL Wootenotassium [Moles/Vol]3.7 mmol/LNormal3.7-5.3 [facility] HospitalComment on above:Result Comment: SPECIMEN SLIGHTLY HEMOLYZED, RESULTS MAY BE ADVERSELY AFFECTED.Performed By: #### CDP, IPF, BMP #### [address] [address] Electric Organ Assembler [employer] Checker: JACOB Wootenodium [Moles/Vol]133 mmol/BPsk545-019HdibzProtestant Deaconess HospitalComment on above:Performed By: #### CDP, IPF, BMP #### [facility] [address] [place] [address] 09417 Electric Organ Assembler [employer] Checker: Brandan Ugalde MDUrea nitrogen [Mass/Vol]32 mg/dLHigh6-20MerLodi Memorial HospitalComment on above:Performed By: #### CDP, IPF, BMP #### [facility] [address] [place] [address] 95568 Electric Organ Assembler [employer] Checker: CHAVO Wooten/CRE RatioNOT REPORTEDNormal9-20[facility] HospitalComment on above:Performed By: #### EMILIO CASTANEDA, BMP #### [facility] [address] [address] Electric Organ Assembler [employer] Checker: JACOB Wootentaging:NOT REPORTEDNormalProtestant Deaconess HospitalComment on above:Performed By: #### EMILIO CASTANEDA, BMP #### [facility] [employer] [facility] [address] [place] [address] 76284 Electric Organ Assembler [employer] Checker: Brandan Ugalde MD(cont.)[facility] Comment on above:Result Comment: Average GFR for 40-49 years old: 99 mL/min/1.73sq m Chronic Kidney Disease: <60 mL/min/1.73sq m Kidney failure: <15 mL/min/1.73sq m eGFR calculated using average adult body mass. Additional eGFR calculator available at: http://www.[employer]/multiple_crcl_2012.htmPerformed By: #### EMILIO CASTANEDA BMP #### [address] [address] Electric [employer] Assembler [employer] Checker: Brandan Ugalde MDAnion gap [Moles/Vol]6 mmol/LLow9-17[facility] HospitalComment on above:Performed By: #### EMILIO CASTANEDA, BMP #### [facility] [employer] [address] [place] [address]10 Electric Organ Assembler [employer] Checker: Brandan Ugalde MDCalcium [Mass/Vol]8.5 mg/dLLow8.6-10.4[facility] HospitalComment on above:Performed By: #### EMILIO CASTANEDA, BMP #### [facility] [employer] [address] [place] [address]404 Electric Organ Assembler [employer] Checker: Brandan Ugalde MDChloride [Moles/Vol]110 mmol/LLrjb43-051XfsdxProtestant Deaconess HospitalComment on above:Performed By: #### CDP, IPF, BMP #### [facility] [address] [place] [address]1945 Electric Organ Assembler [employer] Checker: DANIELLE WootenO2 [Moles/Vol]15 mmol/IKcc57-20BkkvmProtestant Deaconess HospitalComment on above:Performed By: #### CDP, IPF, BMP #### [facility] [address] [place] [address] 50351 Electric Organ Assembler [employer] Checker: DANIELLE Wootenreatinine [Mass/Vol]2.24 mg/dLHigh0.50-0.90 [facility] HospitalComment on above:Performed By: #### CDP, IPF, BMP #### [facility] [address] [place] [address] 94092 Electric Organ Assembler [employer] Checker: Brandan Ugalde MDGFR, Amer29 mL/minLow>60[facility] HospitalComment on above:Performed By: #### CDP, IPF, BMP #### [facility] [address] [place] [address]234 Electric Organ Assembler [employer] Checker: Brandan Ugalde MDGFR,non Amer24 mL/minLow>60[facility] HospitalComment on above:Performed By: #### CDP, IPF, BMP #### [facility] [address] [place] [address] 01867 Electric Organ Assembler [employer] Checker: Brandan Ugalde MDGlucose [Mass/Vol]156 mg/yQXdtg60-41GqooqMills-Peninsula Medical CenterComment on above:Performed By: #### CDP, IPF, BMP #### [facility] [address] [place] [address] 13119 Electric Organ Assembler [employer] Checker: DANIEL Wootenotassium [Moles/Vol]3.4 mmol/LLow3.7-5.3MMills-Peninsula Medical CenterComment on above:Performed By: #### CDP, IPF, BMP #### [facility] [address] [place] [address] [phone] Electric Organ Assembler [employer] Checker: JACOB Wootenodium [Moles/Vol]131 mmol/EYxo549-089OccjpProtestant Deaconess HospitalComment on above:Performed By: #### CDP IPF, BMP #### [facility] [address] [place], [place] [phone] Electric [employer] Assembler [employer] Checker: Brandan Ugalde MDUrea nitrogen [Mass/Vol]32 mg/dLHigh6-20[facility] HospitalComment on above:Performed By: #### CDP, IPF, BMP #### [facility] [address] [place] [address] Electric Organ Assembler [employer] Checker: Brandan Ugalde MDBlood Gas, Venouson [id number] TestNOT REPORTEDMercy HealthCarboxyhemoglobin1.2 %0 - 5 %[facility] HealthComment on above: Reference Range: Non-Smokers 0-2% Average Smoker 2-4% Heavy Smoker <10% [id number] NOT PROVIDEDMercy HealthHCO3 (Bld) [Moles/Vol]15.2 mmol/LLow24 - 30 mmol/LMercy HealthInterpretation and review of laboratory resultsAbnormal [facility] HealthMethemoglobinNOT REPORTED0.0 - 1.5 %[facility] HealthModeNOT REPORTED [facility] HealthNegative Base Excess, Ven10.6 mmol/LHigh0.0 - 2.0 mmol/LMercy Health NOTIFICATIONNOT REPORTEDMercy HealthNOTIFICATION TIMENOT REPORTEDMercy HealthO2 Device/Flow/%NOT REPORTEDMercy HealthOxygen saturation in Blood80.9 %60.0 - 85.0 %[facility] HealthOxyhemoglobinNOT WHPOJUIO21.0 - 98.0 %[facility] HealthpCO2, Ven34.9Low [facility] HealthpCO2, Earnest, Temp AdjNOT REPORTEDMercy HealthPeep/CpapNOT REPORTED [facility] HealthpH, Ven7.261LowMercy HealthpH, Earnest, Temp AdjNOT REPORTEDMer[facility] Health pO2, Ven39.5[facility] HealthpO2, Earnest, Temp AdjNOT REPORTEDMercy HealthPositive Base Excess, VenNOT REPORTED0.0 - 2.0 mmol/LMercy HealthPSVNOT REPORTEDMercy HealthPt Temp37.0[facility] HealthPt. PositionNOT REPORTEDMer HealthRespiratory RateNOT REPORTEDZanesville City Hospital HealthSample SiteNOT REPORTEDMer HealthSet RateNOT REPORTEDZanesville City Hospital HealthText for RespiratoryNOT REPORTEDZanesville City Hospital HealthTotal HbNOT AOMRQXGL95.0 - 16.0 g/dlMer HealthTotal RateNOT REPORTEDMer HealthVTNOT REPORTEDMayo Clinic Health System– OakridgeCBC auto differentialon [id number] Eos #<0.03Mer HealthAbsolute Immature Granulocyte0.07Mer HealthAbsolute Lymph #1.85Mer HealthAbsolute [place] #0.79Mer HealthBasophils (Bld) [#/Vol]10*3/uLMer Health Basophils/100 WBC (Bld)0 %0 - 2 %[facility] HealthDifferential TypeNOT REPORTEDMer HealthEosinophils/100 WBC (Bld)0 %Low1 - 4 %[facility] Healthcare SystemHematocrit (Bld) [Volume fraction]34.1 %Low36.3 - 47.1 %[facility] SystemHemoglobin.gastrointestinal spec 1 Ql (Stl)10.8 g/dLLow11.9 - 15.1 g/dLAcmc Healthcare SystemImmature granulocytes/100 WBC (Bld)1 %Ifit0Tmeqc HealthInterpretation and review of laboratory resultsAbnormal [facility] SystemLymphocytes/100 WBC (Bld)21 %Low24 - 43 %[facility] HospitalH (RBC) [Entitic mass]28.1 pg25.2 - 33.5 pgMercy Health Perrysburg HospitalHC (RBC) [Mass/Vol]31.7 g/dL 28.4 - 34.8 g/dLMercy Health Perrysburg HospitalV (RBC) [Entitic vol]88.6 fL82.6 - 102.9 fLZanesville City Hospital HealthMonocytes/100 WBC (Bld)9 %3 - 12 %[facility] Healthcare SystemNRBC Automated0.00.0 per 100 WBCZanesville City Hospital HealthPlatelet distribution width (Bld) [Ratio]14.0 %11.8 - 14.4 %[facility] HealthPlatelet EstimateNOT REPORTEDZanesville City Hospital HealthPlatelet mean volume (Bld) [Entitic vol]9.0 fL8.1 - 13.5 fLZanesville City Hospital HealthPlatelets (Bld) [#/Vol]107 10*3/uL LowAcmc Healthcare SystemRB (Bld) [#/Vol]3.85 10*6/uLLow3.95 - 5.11 m/uLAcmc Healthcare SystemRB (Bld) [#/Vol]NOT REPORTEDSalem Regional Medical Centergmented neutrophils/100 WBC (Bld)69 %High 36 - 65 %[facility] Healthcare SystemSegs Absolute6.03[facility] Healthcare SystemWBC (Bld) [#/Vol]8.8 10*3/uL [facility] SystemWBC (Bld) [#/Vol]NOT REPORTEDMayo Clinic Health System– OakridgeCB with Diffon [id number]. Basophil<0.99Htsxca2.00-0.20[facility] Comment on above:Performed By: #### EMILIO CASTANEDA, BMP #### [place] [address] Electric [employer] Assembler [employer] Checker: Karma Wooten. Eosinophil<0.30Ezpivd7.00-0.44[facility] HospitalComment on above:Performed By: #### LEONEL IPF, BMP #### [facility] [employer] [address] [place] [address] Electric Organ Assembler [employer] Checker: MDAbs. SugarImm.Granulocyte0.07 k/uLNormal0.00-0.30[facility] HospitalComment on above:Performed By: #### LEONEL IPF, BMP #### [facility] [employer] [address] [place] [address] Electric Organ Assembler [employer] Checker: MDAbs. SugarNeutrophil (Seg)6.03 k/uLNormal1.50-8.10 [facility] HospitalComment on above:Performed By: #### LEONEL, IPF, BMP #### [facility] [employer] [address] [place] [address] Electric Organ Assembler [employer] Checker: Brandan Ugalde MDBasophils/100 WBC (Bld)0 %Normal0-2MercEisenhower Medical CenterComment on above:Performed By: #### CDP, IPF, BMP #### [address] [address] Electric Organ Assembler [employer] Checker: Brandan Ugalde MDEosinophils/100 WBC (Bld)0 %Low1-4[facility] HospitalComment on above:Performed By: #### LEONEL IPF, BMP #### [address] [address] Electric [employer] Assembler [employer] Checker: Brandan Ugalde MDErythrocyte distribution width (RBC) [Ratio]14.0 %Ptlbhw69.8-14.4[facility] HospitalComment on above:Performed By: #### EMILIO CASTANEDA, BMP #### [address] [address] Electric [employer] Assembler [employer] Checker: Brandan Ugalde MDHematocrit (Bld) [Volume fraction]34.1 %Low 36.3-47.1MMills-Peninsula Medical CenterComment on above:Performed By: #### LEONEL IPF, BMP #### [address] [address] Electric [employer] Assembler [employer] Checker: Brandan Ugalde MDHemoglobin (Bld) [Mass/Vol]10.8 g/dLLow11.9-15.1 [facility] HospitalComment on above:Performed By: #### LEONEL IPF, BMP #### [address] [address] Electric [employer] Assembler [employer] Checker: Brandan Ugalde MDImmature granulocytes/100 WBC (Bld)1 %Onzv3UiaccProtestant Deaconess HospitalComment on above:Performed By: #### LEONEL IPF, BMP #### [address] [address] Electric Organ Assembler [employer] Checker: Brnadan Ugalde MDLymphocytes (Bld) [#/Vol]1.85 10*3/uLNormal 1.10-3.70[facility] HospitalComment on above:Performed By: #### LEONEL IPF, BMP #### [facility] [employer] [address] [place] [address]20 Electric Organ Assembler [employer] Checker: Brandan Ugalde MDLymphocytes/100 WBC (Bld)21 %Bah11-95IamgiProtestant Deaconess HospitalComment on above:Performed By: #### CDP, IPF, BMP #### [address] [address] Electric Organ Assembler [employer] Checker: GAVIN WootenCH (RBC) [Entitic mass]28.1 cgUjfgos68.2-33.5 [facility] HospitalComment on above:Performed By: #### CDP, IPF, BMP #### [address] [address] Electric Organ Assembler [employer] Checker: GAVIN WootenCHC (RBC) [Mass/Vol]31.7 g/cOKizblh95.4-34.8 [facility] HospitalComment on above:Performed By: #### CDP, IPF, BMP #### [address] [address] Electric Organ Assembler [employer] Checker: GAVIN WootenCV (RBC) [Entitic vol]88.6 iLHlummr56.6-102.9 [facility] HospitalComment on above:Performed By: #### CDP, IPF, BMP #### [address] [address] Electric Organ Assembler [employer] Checker: Brandan Ugalde MDMonocytes (Bld) [#/Vol]0.79 10*3/uLNormal 0.10-1.20[facility] HospitalComment on above:Performed By: #### CDP, IPF, BMP #### [facility] [employer] [address] [place] [address] Electric Organ Assembler [employer] Checker: GAVIN Wootenonocytes/100 WBC (Bld)9 %Normal3-12[facility] HospitalComment on above:Performed By: #### CDP, IPF, BMP #### [facility] [place] [address] Electric Organ Assembler [employer] Checker: Sanna Wooten (Seg)69 %Mptq38-64SdvusProtestant Deaconess HospitalComment on above:Performed By: #### CDP, IPF, BMP #### [facility] [address] [place] [address] Electric Organ Assembler [employer] Checker: GOLDIE Wooten Automated0.0 per 100 WBCNormal0.0[facility] HospitalComment on above:Performed By: #### CDP, IPF, BMP #### [facility] [address] [place] [address] Electric Organ Assembler [employer] Checker: Isabell Wooten mean volume (Bld) [Entitic vol]9.0 fL Normal8.1-13.5[facility] HospitalComment on above:Performed By: #### CDP, IPF, BMP #### [facility] [address] [place] [address] Electric Organ Assembler [employer] Checker: Robert Wooten (Bld) [#/Vol]107 10*3/sWIbw938-153 [facility] HospitalComment on above:Performed By: #### CDP, IPF, BMP #### [facility] [employer] [address] [place] [address] Electric Organ Assembler [employer] Checker: BAKARI Wooten (Bld) [#/Vol]3.85 10*6/uLLow3.95-5.11[facility] HospitalComment on above:Performed By: #### CDP, IPF, BMP #### [facility] [address] [place] [address] Electric Organ Assembler [employer] Checker: MISTY Wooten (Bld) [#/Vol]8.8 10*3/uLNormal3.5-11.3MMills-Peninsula Medical CenterComment on above:Performed By: #### CDP, IPF, BMP #### [facility] [address] [place] [address] Electric [employer] Assembler [employer] Checker: Laxmi Wooten Diff PerformedNOT REPORTEDSsm Health CarealProtestant Deaconess HospitalComment on above:Performed By: #### CDP, IPF, BMP #### [facility] [address] [place] [address] Electric Organ Assembler [employer] Checker: Isabell Wooten CommentNOT REPORTEDAvita Health System Bucyrus HospitalComment on above:Performed By: #### CDP, IPF, BMP #### [facility] [address] [place] [address] Electric Organ Assembler [employer] Checker: BAKARI Wooten morphology finding Nom (Bld)NOT REPORTED [facility] HospitalComment on above:Performed By: #### CDP, IPF, BMP #### [facility] [address] [place] [address] Electric Organ Assembler [employer] Checker: MISTY Wooten MorphologyNOT REPORTEDAvita Health System Bucyrus HospitalComment on above:Performed By: #### CDP, IPF, BMP #### [facility] [address] [place] [address] Electric Organ Assembler [employer] Checker: DENI Wooten DNA Probe, Nasalon [id number], DNA, NasalNegativeNEGATIVEAcmc Healthcare SystemComment on above:NEGATIVE: MRSA DNA not detected by nucleic acid amplification. Results should be used as an adjunct to nosocomial control efforts to identify patients needing enhanced precautions. The test is not intended to identify patients with staphylococcal infections. Results should not be used to guide or monitor treatment for MRSA infections. Specimen Description.NASAL SWABMerRandolph Health HealthMRSA, DNA, Nasalon [id number], DNA, NasalNegativeSelect Medical Specialty Hospital [facility], Inc Comment on above:Result Comment: NEGATIVE: MRSA DNA not detected by nucleic acid amplification. Results should be used as an adjunct to nosocomial control efforts to identify patients needing enhanced precautions. The test is not intended to identify patients with staphylococcal infections. Results should not be used to guide or monitor treatment for MRSA infections. Performed By: #### EMILIO CASTANEDA, BMP #### [facility] [address] [place] [address] Electric [employer]sembler [employer] Checker: Shama Wootengnesiumon [id number] [Mass/Vol]1.7 mg/dLNormal1.6-2.6[facility] HospitalComment on above:Performed By: #### EMILIO CASTANEDA, BMP #### [facility] [employer] [address] [place] [address] [phone] Electric [employer] Assembler [employer] Checker: Brandan Ugalde MDMagnesium [Mass/Vol]1.7 mg/dL1.6 - 2.6 mg/dL [facility] HealthMagnesium [Mass/Vol]1.8 mg/dLNormal1.6-2.6[facility] HospitalComment on above:Performed By: #### EMILIO CASTANEDA, BMP #### [facility] [address] [place] [address] Electric Organ Assembler [employer] Checker: Brandan Ugalde MDMagnesium [Mass/Vol]1.8 mg/dL1.6 - 2.6 mg/dL [facility] HealthMagnesium [Mass/Vol]1.9 mg/dLNormal1.6-2.6[facility] HospitalComment on above:Performed By: #### EMILIO CASTANEDA, BMP #### [facility] [address] [place] [address] Electric Organ Assembler [employer] Checker: Brandan Ugalde MDMagnesium [Mass/Vol]1.9 mg/dL1.6 - 2.6 mg/dL [facility] HealthMagnesium [Mass/Vol]1.8 mg/dLNormal1.6-2.6[facility] HospitalComment on above:Performed By: #### EMILIO CASTANEDA, BMP #### [facility] [address] [place] [address] Electric [employer] Assembler [employer] Checker: Brandan Ugalde MDNo Panel Informationon [id number] HealthInterpretation and review of laboratory resultsAbnoAgnesian HealthCare Glucose Fingerstickon [id number] [Mass/Vol]159 mg/dLHigh 65 - 105 mg/dLZanesville City Hospital HealthInterpretation and review of laboratory results AbnormalMerRandolph Health HealthGlucose [Mass/Vol]166 mg/oWHwfo31 - 105 mg/dL [facility] HealthInterpretation and review of laboratory resultsAbnormalOsceola Ladd Memorial Medical CenterGlucose [Mass/Vol]227 mg/fDLzps89 - 105 mg/dLZanesville City Hospital Health Interpretation and review of laboratory resultsAbnormMercyhealth [facility] Glucose [Mass/Vol]290 mg/uBZghc06 - 105 mg/dLZanesville City Hospital HealthInterpretation and review of laboratory resultsAbnormMercyhealth Mercy HospitalGlucose [Mass/Vol] 269 mg/iQBqwd59 - 105 mg/dLZanesville City Hospital HealthInterpretation and review of laboratory resultsAbnormalMayo Clinic Health System– OakridgeGlucose [Mass/Vol]137 mg/bHGltl47 - 105 mg/dLZanesville City Hospital HealthInterpretation and review of laboratory resultsAbnoProMedica Fostoria [facility] HealthPhosphoruson [id number] [Mass/Vol]3.1 mg/dL2.6 - 4.5 mg/dLAcmc Healthcare SystemPhosphate [Mass/Vol]3.0 mg/dL2.6 - 4.5 mg/dLAcmc Healthcare System Phosphate [Mass/Vol]1.9 mg/dLLow2.6 - 4.5 mg/dLAcmc Healthcare SystemPhosphorus, Inorg.on [id number], Inorg.3.1 mg/dLNormal2.6-4.5[facility] HospitalComment on above:Performed By: #### LEONEL IPF, BMP #### [employer] [address] [place] [address] [phone] Electric [employer] Assembler [employer] Checker: DANIEL Wootenhosphorus, Inorg.3.0 mg/dLNormal2.6-4.5[facility] HospitalComment on above:Performed By: #### LEONEL, IPF, BMP #### [employer] [address] [place] [address] Electric Organ Assembler [employer] Checker: DANIEL Wootenhosphorus, Inorg.1.9 mg/dLLow2.6-4.[address] [place], [place] [address]Comment on above:Performed By: #### CDP, IPF, BMP #### [facility] [address] [place] [address] Electric [employer]er [employer] Checker: DANIEL Wootenhosphorus, Inorg.1.9 mg/dLLow2.6-4.5[facility] HospitalComment on above:Performed By: #### LEONEL, IPF, BMP #### [facility] [address] [place] [address] [employer] Checker: JOSE Wooten REJECTIONon 09-29-2021-NOT REPORTED [facility] SystemOrdered TestCommunity Regional Medical CenterReason for RejectionUnable to perform testing: Specimen clotted.[facility] SystemSpecimen source Nom (Unsp spec).[facility] and ClinicsSpecimen Rejectionon [id number] for rejectionUnable to perform testing: Specimen clotted.[facility] HospitalComment on above:Performed By: #### LEONEL, IPF, BMP #### [facility] [address] [place] [address] [employer] Checker: Devin Wooten of sample.[facility] Regional Medical CenterComment on above:Performed By: #### CDP, IPF, BMP #### [facility] [facility] [address] [place] [address] [employer] Assembler [employer] Checker: Brandan Ugalde MDTest orderedMemorial Health SystemComment on above:Performed By: #### LEONEL, IPF, BMP #### [facility] [address] [place] [address] [employer] Checker: Brandan Ugalde MD-----NOT REPORTEDAvita Health System Bucyrus HospitalComment on above:Performed By: #### CDP, IPF, BMP #### [facility] [address] [place] [address] [employer] Checker: Brandan Ugalde MDVenous Blood Gaseson [id number] Temp.37.0 NormalProtestant Deaconess HospitalComment on above:Performed By: #### CDP, IPF, BMP #### [facility] [address] [place] [address] [employer] Checker: DANIELLE Wootenarboxmarco antonio Hgb1.2 %Normal0-5[facility] HospitalComment on above:Result Comment: Reference Range: Non-Smokers 0-2% Average Smoker 2-4% Heavy Smoker <10%Performed By: #### CDP, IPF, BMP #### [facility] [address] [place] [address] [employer] Checker: Brandan Ugalde MDFIO2INFORMATION NOT PROVIDEDNormalProtestant Deaconess HospitalComment on above:Performed By: #### CDP, IPF, BMP #### [facility] [address] [place] [address] [employer] Checker: Brandan Ugalde MDHCO3 (Bld) [Moles/Vol]15.2 mmol/JIrb56-99PkxpvProtestant Deaconess HospitalComment on above:Performed By: #### CDP, IPF, BMP #### [facility] [address] [place] [address] Electric Organ Assembler And Checker: Brandan Ugalde MDNegative Base Krqcwa18.6 mmol/LHigh0.0-2.0Pro[facility] Deaconess HospitalComment on above:Performed By: #### CDP, IPF, BMP #### [facility] [address] [place] [address] Electric Organ Assembler [employer] Checker: Brandan Ugalde MDOxygen (Bld) [Partial pressure]39.5 mm[Hg]Normal 30-50Pro[facility] Deaconess HospitalComment on above:Performed By: #### CDP, IPF, BMP #### [facility] [address] [place] [address]387 Electric Organ Assembler [employer] Checker: Brandan Ugalde MDOxygen saturation in Blood80.9 %Xpzqgp97.0-85.0 [facility] HospitalComment on above:Performed By: #### CDP, IPF, BMP #### [facility] [address] [place] [address] Electric Organ Assembler [employer] Checker: Daniel WootenCO234.2Kbo78-43MsyvhProtestant Deaconess Hospital Comment on above:Performed By: #### CDP, IPF, BMP #### [address] [address] Electric Organ Assembler And Checker: Daniel Wooten (Bld)7.261 [pH]Low7.320-7.420Pro[facility] Deaconess HospitalComment on above:Performed By: #### CDP, IPF, BMP #### [address] [address] Electric Organ Assembler And Checker: Miguel Wooten TestNOT REPORTEDNormalProtestant Deaconess HospitalComment on above:Performed By: #### CDP, IPF, BMP #### [facility] [address] [place] [address] Electric Organ Assembler [employer] Checker: GAVIN WootenethemoglobinNOT REPORTEDNormal0.0-1.5Pro[facility]aconess HospitalComment on above:Performed By: #### CDP, IPF, BMP #### [facility] [address] [place] [address] Electric Organ Assembler [employer] Checker: GAVIN WootenodeNOT REPORTEDNormalProtestant Deaconess HospitalComment on above:Performed By: #### CDP, IPF, BMP #### [facility] [address] [place] [address]22 Electric Organ Assembler And Checker: Ary Wootenification TimeNOT REPORTEDNormalProtestant Deaconess HospitalComment on above:Performed By: #### CDP, IPF, BMP #### [facility] [address] [place] [address] Electric Organ Assembler And Checker: Brandan Ugalde MDNotification:NOT REPORTEDNormalProtestant Deaconess HospitalComment on above:Performed By: #### CDP, IPF, BMP #### [facility] [address] [place] [address]24 Electric Organ Assembler And Checker: Brandan Ugalde MDO2 Device/Flow/%NOT REPORTEDNormalProtestant Deaconess HospitalComment on above:Performed By: #### CDP, IPF, BMP #### [facility] [address] [place] [address]655 Electric Organ Assembler And Checker: Brandan Ugalde MDOxyhemoglobinNOT NHHODCIDNnbzbo83.0-98.0[facility] HospitalComment on above:Performed By: #### CDP, IPF, BMP #### [facility] [address] [place] [address]84 Electric Organ Assembler And Checker: DANIEL Wootenco2 Adj'd for Temp.NOT YTRCJSWNPtslbs28-19MbszlProtestant Deaconess HospitalComment on above:Performed By: #### CDP, IPF, BMP #### [facility] [address] [place] [address] 83068 Electric Organ Assembler And Checker: DANIEL WootenEEP/CPAPNOT REPORTEDNormalProtestant Deaconess HospitalComment on above:Performed By: #### CDP, IPF, BMP #### [facility] [address] [place] [address] Electric Organ Assembler [employer] Checker: Daniel Wooten Adjst'd for Temp.NOT REPORTEDNormal 7.320-7.420Pro[facility] HospitalComment on above:Performed By: #### CDP, IPF, BMP #### [facility] [address] [place] [address] 51774 Electric Organ Assembler And Checker: Daniel WootenO2 Adj'd for Temp.NOT NRXLDTWVTzswbd31-38Fnyuu [facility] HospitalComment on above:Performed By: #### CDP, IPF, BMP #### [facility] [address] [place] [address] Electric Organ Assembler And Checker: Dorita Wootentive Base ExcessNOT REPORTEDNormal0.0-2.0 [facility] HospitalComment on above:Performed By: #### CDP, IPF, BMP #### [facility] [address] [place] [address]90 Electric Organ Assembler And Checker: DANIEL WootenSVNOT REPORTEDNormalMercy [facility] HospitalComment on above:Performed By: #### CDP, IPF, BMP #### [facility] [address] [place] [address]30 Electric Organ Assembler And Checker: Pat Wooten. PositionNOT REPORTEDNormalMercy [facility] HospitalComment on above:Performed By: #### LEONEL, IPF, BMP #### [facility] [address] [place] [address] 9[address]12 Electric Organ Assembler And Checker: Bakari Wooten RateNOT REPORTEDNormalProtestant Deaconess HospitalComment on above:Performed By: #### CDP, IPF, BMP #### [facility] [address] [place] [address] 53298 Electric Organ Assembler And Checker: Stanislaw Wooten RateNOT REPORTEDNormalMercy [facility] HospitalComment on above:Performed By: #### CDP, IPF, BMP #### [facility] [address] [place] [address]8730 Electric Organ Assembler And Checker: Lindsey Wooten DrawnNOT REPORTEDNormalMercy [facility] HospitalComment on above:Performed By: #### CDP, IPF, BMP #### [facility] [address] [place] [address] 08707 Electric Organ Assembler And Checker: Donald Wooten for RespiratoryNOT REPORTEDNormalMercy Coast Plaza Hospital CenterComment on above:Performed By: #### LEONEL, IPF, BMP #### [facility] [address] [place] [address] Electric Organ Assembler And Checker: Constantine Wooten HbNOT YDAGQEUOPulxob52.0-16.0MerLodi Memorial HospitalComment on above:Performed By: #### LEONEL IPF, BMP #### [facility] [address] [place] [address]248 Electric Organ Assembler And Checker: Constantine Wooten RateNOT REPORTEDNormalProtestant Deaconess HospitalComment on above:Performed By: #### LEONEL IPF, BMP #### [facility] [address] [place] [address]157 Electric Organ Assembler And Checker: DEMAR Wooten REPORTEDrmalProtestant Deaconess HospitalComment on above:Performed By: #### LEONEL IPF, BMP #### [facility] [address] [place] [address] 97568 Electric Organ Assembler And Checker: DREW Wooten METABOLIC PANELon [id number] gap [Moles/Vol]13 mmol/L9 - 17 mmol/LMercy HealthCalcium [Mass/Vol]8.7 mg/dL8.6 - 10.4 mg/dLMercy HealthChloride [Moles/Vol]115 mmol/LHigh98 - 107 mmol/LMercy HealthCO2 [Moles/Vol]14 mmol/LLow20 - 31 mmol/LMercy HealthCreatinine [Mass/Vol] 2.15 mg/dLHigh0.50 - 0.90 mg/dLMercy HealthGFR Kmcvolpr21 mL/minLow>60 [facility] HealthGFR Non- Xzmlvavs97 mL/minLow>60[facility] HealthGFR/1.73 sq M.predicted MDRD (S/P/Bld) [Vol rate/Area][facility] Healthcare SystemComment on above:Average GFR for 40-49 years old: 99 mL/min/1.73sq m Chronic Kidney Disease: <60 mL/min/1.73sq m Kidney failure: <15 mL/min/1.73sq m eGFR calculated using average adult body mass. Additional eGFR calculator available at: http://www.[employer]/multiple_crcl_2012.htm GFR/1.73 sq M.predicted MDRD (S/P/Bld) [Vol rate/Area]NOT REPORTEDMercy Health Glucose [Mass/Vol]160 mg/oLJsbb31 - 99 mg/dLMercy HealthInterpretation and review of laboratory resultsAbnormalMercy HealthPotassium [Moles/Vol]2.9 mmol/L Critically low3.7 - 5.3 mmol/LMercy HealthSodium [Moles/Vol]142 mmol/L135 - 144 mmol/LMercy HealthUrea nitrogen (BldV) [Mass/Vol]33 mg/dLHigh6 - 20 mg/dLMercy HealthUrea nitrogen/Creatinine (Bld) [Mass ratio]NOT REPORTEDMer HealthMercy HealthBLOOD GAS, VENOUSon [id number] TestNOT REPORTEDMer Health Carboxyhemoglobin2.2 %0 - 5 %[facility] HealthComment on above: Reference Range: Non-Smokers 0-2% Average Smoker 2-4% Heavy Smoker <10% [id number] HealthHCO3 (Bld) [Moles/Vol]17.3 mmol/LLow24 - 30 mmol/LMercy HealthInterpretation and review of laboratory resultsAbnormalMer Health MethemoglobinNOT REPORTED0.0 - 1.5 %[facility] HealthModeNOT REPORTEDMercy Health Negative Base Excess, Ven8.2 mmol/LHigh0.0 - 2.0 mmol/LMercy HealthNOTIFICATION NOT REPORTEDMercy HealthNOTIFICATION TIMENOT REPORTEDMercy HealthO2 Device/Flow/%NOT REPORTEDMercy HealthOxygen saturation in Blood80.7 %60.0 - 85.0 %[facility] HealthOxyhemoglobinNOT ENLQIWMY55.0 - 98.0 %[facility] HealthpCO2, Ven37.0Low [facility] HealthpCO2, Earnest, Temp AdjNOT REPORTEDMercy HealthPeep/CpapNOT REPORTED [facility] HealthpH, Ven7.290LowMercy HealthpH, Earnest, Temp AdjNOT REPORTEDMercy Health pO2, Ven34.0[facility] HealthpO2, Earnest, Temp AdjNOT REPORTEDMercy HealthPositive Base Excess, VenNOT REPORTED0.0 - 2.0 mmol/LMercy HealthPSVNOT REPORTEDMer HealthPt Temp37.0Mer HealthPt. PositionNOT REPORTEDMer HealthRespiratory RateNOT REPORTEDMer HealthSample SiteNOT REPORTEDMercy HealthSet RateNOT REPORTEDMer HealthText for RespiratoryNOT REPORTEDMer HealthTotal HbNOT PSAHEJDY43.0 - 16.0 g/dlMer HealthTotal RateNOT REPORTEDMer HealthVTNOT REPORTEDMayo Clinic Health System– OakridgeBasic Metabolic Panelon [id number] gap [Moles/Vol]6 mmol/LLow9 - 17 mmol/LMercy HealthCalcium [Mass/Vol]8.5 mg/dLLow8.6 - 10.4 mg/dL [facility] HealthChloride [Moles/Vol]110 mmol/LHigh98 - 107 mmol/LMercy HealthCO2 [Moles/Vol]15 mmol/LLow20 - 31 mmol/LMercy HealthCreatinine [Mass/Vol]2.24 mg/dL High0.50 - 0.90 mg/dLMercy HealthGFR Jhezuoom59 mL/minLow>60[facility] GFR Non- Mvsiwfwq14 mL/minLow>60[facility] HealthGFR/1.73 sq M.predicted MDRD (S/P/Bld) [Vol rate/Area][facility] Healthcare SystemComment on above:Average GFR for 40-49 years old: 99 mL/min/1.73sq m Chronic Kidney Disease: <60 mL/min/1.73sq m Kidney failure: <15 mL/min/1.73sq m eGFR calculated using average adult body mass. Additional eGFR calculator available at: http://www.[employer]/multiple_crcl_2012.htm GFR/1.73 sq M.predicted MDRD (S/P/Bld) [Vol rate/Area]NOT REPORTEDAcmc Healthcare System Glucose [Mass/Vol]156 mg/hXJzmx12 - 99 mg/dLZanesville City Hospital HealthPotassium [Moles/Vol]3.4 mmol/LLow3.7 - 5.3 mmol/LMercy HealthSodium [Moles/Vol]131 mmol/FEun890 - 144 mmol/LMercy HealthUrea nitrogen (BldV) [Mass/Vol]32 mg/dLHigh6 - 20 mg/dLMer HealthUrea nitrogen/Creatinine (Bld) [Mass ratio]NOT REPORTEDMer HealthAnion gap [Moles/Vol]10 mmol/L9 - 17 mmol/LMercy HealthCalcium [Mass/Vol]8.2 mg/dLLow 8.6 - 10.4 mg/dLMercy HealthChloride [Moles/Vol]113 mmol/LHigh98 - 107 mmol/L [facility] HealthCO2 [Moles/Vol]16 mmol/LLow20 - 31 mmol/LMercy HealthCreatinine [Mass/Vol]2.2 mg/dLHigh0.50 - 0.90 mg/dLMer HealthGFR Lshaorqi36 mL/minLow>60Mer HealthGFR Non- Teoppfio66 mL/minLow>60[facility] GFR/1.73 sq M.predicted MDRD (S/P/Bld) [Vol rate/Area][facility] Healthcare SystemComment on above:Average GFR for 40-49 years old: 99 mL/min/1.73sq m Chronic Kidney Disease: <60 mL/min/1.73sq m Kidney failure: <15 mL/min/1.73sq m eGFR calculated using average adult body mass. Additional eGFR calculator available at: http://www.[employer]/multiple_crcl_2012.htm GFR/1.73 sq M.predicted MDRD (S/P/Bld) [Vol rate/Area]NOT REPORTEDAcmc Healthcare System Glucose [Mass/Vol]231 mg/sMBqik90 - 99 mg/dLAcmc Healthcare SystemPotassium [Moles/Vol]4.5 mmol/L3.7 - 5.3 mmol/LMshelby memorial hospitaly HealthComment on above:SPECIMEN SLIGHTLY HEMOLYZED, RESULTS MAY BE ADVERSELY AFFECTED.Sodium [Moles/Vol]139 mmol/L135 - 144 mmol/L [facility] HealthUrea nitrogen (BldV) [Mass/Vol]33 mg/dLHigh6 - 20 mg/dLAcmc Healthcare System Urea nitrogen/Creatinine (Bld) [Mass ratio]NOT REPORTEDMer HealthAnion gap [Moles/Vol]17 mmol/L9 - 17 mmol/LMercy HealthCalcium [Mass/Vol]8.7 mg/dL8.6 - 10.4 mg/dLMercy HealthChloride [Moles/Vol]116 mmol/LHigh98 - 107 mmol/LMercy HealthCO2 [Moles/Vol]12 mmol/LLow20 - 31 mmol/LMercy HealthCreatinine [Mass/Vol] 2.22 mg/dLHigh0.50 - 0.90 mg/dLMercy HealthGFR Uqkfixmg75 mL/minLow>60 [facility] HealthGFR Non- Zviwayss04 mL/minLow>60[facility] HealthGFR/1.73 sq M.predicted MDRD (S/P/Bld) [Vol rate/Area][facility] Healthcare SystemComment on above:Average GFR for 40-49 years old: 99 mL/min/1.73sq m Chronic Kidney Disease: <60 mL/min/1.73sq m Kidney failure: <15 mL/min/1.73sq m eGFR calculated using average adult body mass. Additional eGFR calculator available at: http://www.[employer]/multiple_crcl_2012.htm GFR/1.73 sq M.predicted MDRD (S/P/Bld) [Vol rate/Area]NOT REPORTEDAcmc Healthcare System Glucose [Mass/Vol]232 mg/qBQfbq55 - 99 mg/dLMercy HealthPotassium [Moles/Vol]3.2 mmol/LLow3.7 - 5.3 mmol/LMercy HealthSodium [Moles/Vol]145 mmol/RJjxb056 - 144 mmol/LMercy HealthUrea nitrogen (BldV) [Mass/Vol]35 mg/dLHigh6 - 20 mg/dLZanesville City Hospital HealthUrea nitrogen/Creatinine (Bld) [Mass ratio]NOT REPORTEDAcmc Healthcare SystemBasic Metabolic Profon [id number]/CRE RatioNOT REPORTEDNormal9-20[facility] HospitalComment on above:Performed By: #### EMILIO CASTANEDA BMP #### [facility] [address] [place], [place] [phone] Electric Organ Assembler And Checker: JACOB Wootentaging:NOT REPORTEDNormalProtestant Deaconess HospitalComment on above:Performed By: #### EMILIO CASTANEDA BMP #### [facility] [address] [place] [address] Electric Organ Assembler And Checker: Brandan Ugalde MD(cont.)[facility] Comment on above:Result Comment: Average GFR for 40-49 years old: 99 mL/min/1.73sq m Chronic Kidney Disease: <60 mL/min/1.73sq m Kidney failure: <15 mL/min/1.73sq m eGFR calculated using average adult body mass. Additional eGFR calculator available at: http://www.[employer]/multiple_crcl_2012.htmPerformed By: #### EMILIO CASTANEDA, BMP #### [facility] [address] [place] [address] Electric Organ Assembler [employer] Checker: Brandan Ugalde MDAnion gap [Moles/Vol]10 mmol/LNormal9-17[facility] HospitalComment on above:Performed By: #### EMILIO CASTANEDA, BMP #### [facility] [address] [place] [address] Electric Organ Assembler And Checker: DANIELLE Wootenalcium [Mass/Vol]8.2 mg/dLLow8.6-10.4[facility] HospitalComment on above:Performed By: #### LEONEL IPF, BMP #### [facility] [address] [place] [address] Electric Organ Assembler And Checker: Brandan Ugalde MDChloride [Moles/Vol]113 mmol/SIglg59-949MdldhProtestant Deaconess HospitalComment on above:Performed By: #### LEONEL IPF, BMP #### [facility] [address] [place] [address] Electric Organ Assembler And Checker: Brandan Ugalde MDCO2 [Moles/Vol]16 mmol/ZJas65-88EurhxProtestant Deaconess HospitalComment on above:Performed By: #### LEONEL IPF, BMP #### [facility] [address] [place] [address] Electric Organ Assembler And Checker: DANIELLE Wootenreatinine [Mass/Vol]2.20 mg/dLHigh0.50-0.90 [facility] HospitalComment on above:Performed By: #### LEONEL IPF, BMP #### [facility] [address] [place] [address] Electric Organ Assembler And Checker: Brandan Ugalde MDGFR, Amer30 mL/minLow>60MerLodi Memorial HospitalComment on above:Performed By: #### LEONEL IPF, BMP #### [facility] [address] [place] [address]3942 Electric Organ Assembler [employer] Checker: Brandan Ugalde MDGFR,non Amer24 mL/minLow>60[facility] HospitalComment on above:Performed By: #### LEONEL IPF, BMP #### [facility] [address] [place] [address] Electric Organ Assembler And Checker: Brandan Ugalde MDGlucose [Mass/Vol]231 mg/vIHqie28-80Muxyv [facility] HospitalComment on above:Performed By: #### EMILIO CASTANEDA, BMP #### [facility] [address] [place] [address] Electric Organ Assembler And Checker: DANIEL Wootenotassium [Moles/Vol]4.5 mmol/LNormal3.7-5.3 [facility] HospitalComment on above:Result Comment: SPECIMEN SLIGHTLY HEMOLYZED, RESULTS MAY BE ADVERSELY AFFECTED.Performed By: #### LEONEL IPF, BMP #### [facility] [address] [place] [address]92 Electric Organ Assembler And Checker: Brandan Ugalde MDSodium [Moles/Vol]139 mmol/PEcbtsi563-734ZbbztProtestant Deaconess HospitalComment on above:Performed By: #### LEONEL IPF, BMP #### [facility] [address] [place] [address] 08541 Electric Organ Assembler And Checker: Brandan Ugalde MDUrea nitrogen [Mass/Vol]33 mg/dLHigh6-20MerLodi Memorial HospitalComment on above:Performed By: #### CDP, IPF, BMP #### [facility] [address] [place] [address] Electric Organ Assembler And Checker: CHAVO Wooten/ABI Ramey REPORTEDNormal9-20[facility] HospitalComment on above:Performed By: #### CDP, IPF, BMP #### [facility] [address] [place] [address]40 Electric Organ Assembler And Checker: JACOB Wootentaging:NOT REPORTEDNormalProtestant Deaconess HospitalComment on above:Performed By: #### CDP, IPF, BMP #### [facility] [address] [place] [address]01 Electric Organ Assembler And Checker: Brandan Ugalde MD(cont.)[facility] Comment on above:Result Comment: Average GFR for 40-49 years old: 99 mL/min/1.73sq m Chronic Kidney Disease: <60 mL/min/1.73sq m Kidney failure: <15 mL/min/1.73sq m eGFR calculated using average adult body mass. Additional eGFR calculator available at: http://www.[employer]/multiple_crcl_2012.htmPerformed By: #### BMP, MG, MARZENA #### [facility] [address] [place] [address] Electric Organ Assembler [employer] Checker: Brandan Ugalde MDAnion gap [Moles/Vol]17 mmol/LNormal9-17[facility] HospitalComment on above:Performed By: #### BMP, MG, MARZENA #### [facility] [address] [place] [address] Electric Organ Assembler And Checker: Brandan Ugalde MDCalcium [Mass/Vol]8.7 mg/dLNormal8.6-10.4[facility] HospitalComment on above:Performed By: #### BMP, MG, MARZENA #### [facility] [address] [place] [address] Electric Organ Assembler And Checker: DANIELLE Wootenhloride [Moles/Vol]116 mmol/TLacb48-503PcamcProtestant Deaconess HospitalComment on above:Performed By: #### BMP, MG, MARZENA #### [facility] [address] [place] [address]86 Electric Organ Assembler And Checker: Brandan Ugalde MDCO2 [Moles/Vol]12 mmol/CAtu17-83DubkvProtestant Deaconess HospitalComment on above:Performed By: #### BMP, MG, MARZENA #### [facility] [address] [place] [address] Electric Organ Assembler And Checker: DANIELLE Wootenreatinine [Mass/Vol]2.22 mg/dLHigh0.50-0.90 [facility] HospitalComment on above:Performed By: #### BMP, MG, MARZENA #### [address] [address] Electric Organ Assembler And Checker: Brandan Ugalde MDGFR, Amer29 mL/minLow>60[facility] HospitalComment on above:Performed By: #### BMP, MG, MARZENA #### [facility] [address] [place] [address] Electric Organ Assembler And Checker: Brandan Ugalde MDGFR,non Amer24 mL/minLow>60[facility] HospitalComment on above:Performed By: #### BMP, MG, MARZENA #### [facility] [address] [place] [address] Electric Organ Assembler And Checker: Brandan Ugalde MDGlucose [Mass/Vol]232 mg/gMNrha35-96KnmseMills-Peninsula Medical CenterComment on above:Performed By: #### BMP, MG, MARZENA #### [facility] [address] [place] [address]15 Electric Organ Assembler And Checker: Brandan Ugalde MDPotassium [Moles/Vol]3.2 mmol/LLow3.7-5.3MMills-Peninsula Medical CenterComment on above:Performed By: #### BMP, MG, MARZENA #### [facility] [address] [place] [address] Electric Organ Assembler And Checker: JACOB Wootenodium [Moles/Vol]145 mmol/JTiyf737-624XosduProtestant Deaconess HospitalComment on above:Performed By: #### BMP, MG, MARZENA #### [facility] [address] [place] [address] Electric Organ Assembler And Checker: Brandan Ugalde MDUrea nitrogen [Mass/Vol]35 mg/dLHigh6-20[facility] HospitalComment on above:Performed By: #### BMP, MG, MARZENA #### [facility] [address] [place] [address] Electric Organ Assembler And Checker: Brandan Ugalde MDBUN/CRE RatioNOT REPORTEDNormal9-20[facility] HospitalComment on above:Performed By: #### BMP, MG, MARZENA #### [facility] [address] [place] [address] Electric Organ Assembler And Checker: JACOB Wootentaging:NOT REPORTEDNormalProtestant Deaconess HospitalComment on above:Performed By: #### BMP, MG, MARZENA #### [facility] [address] [place] [address] Electric Organ Assembler And Checker: Brandan Ugalde MD(cont.)[facility] Comment on above:Result Comment: Average GFR for 40-49 years old: 99 mL/min/1.73sq m Chronic Kidney Disease: <60 mL/min/1.73sq m Kidney failure: <15 mL/min/1.73sq m eGFR calculated using average adult body mass. Additional eGFR calculator available at: http://www.[employer]com/multiple_crcl_2012.htmPerformed By: #### CDP, IPF, BMP #### [facility] [address] [place] [address] Electric [employer] Assembler [employer] Checker: Brandan Madoff, MDAnion gap [Moles/Vol]13 mmol/LNormal9-17[facility] HospitalComment on above:Performed By: #### LEONEL IPF, BMP #### [facility] [address] [place] [address] Electric [employer] Assembler [employer] Checker: Brandan Ugalde MDCalcium [Mass/Vol]8.7 mg/dLNormal8.6-10.4[facility] HospitalComment on above:Performed By: #### LEONEL, IPF, BMP #### [facility] [address] [place] [address] Electric [employer] Assembler [employer] Checker: Brandan Ugalde MDChloride [Moles/Vol]115 mmol/EZcnh94-270NoqiwProtestant Deaconess HospitalComment on above:Performed By: #### LEONEL IPF, BMP #### [facility] [address] [place] [address] Electric [employer] Assembler [employer] Checker: Brandan Ugalde MDCO2 [Moles/Vol]14 mmol/CKva52-17BfnxnProtestant Deaconess HospitalComment on above:Performed By: #### LEONEL, IPF, BMP #### [facility] [employer] [address] [place] [address] Electric Organ Assembler And Checker: Brandan Ugalde MDCreatinine [Mass/Vol]2.15 mg/dLHigh0.50-0.90 [facility] HospitalComment on above:Performed By: #### LEONEL, IPF, BMP #### [facility] [address] [place] [address] Electric [employer] Assembler And Checker: BRAIN Wooten, Amer30 mL/minLow>60[facility] HospitalComment on above:Performed By: #### LEONEL, IPF, BMP #### [facility] [employer] [address] [place] [address] Electric [employer] Assembler And Checker: BRAIN Wooten,non Amer25 mL/minLow>60[facility] HospitalComment on above:Performed By: #### CDP, IPF, BMP #### [facility] [address] [place] [address] Electric [employer] Assembler [employer] Checker: Brandan Ugalde MDGlucose [Mass/Vol]160 mg/aGGsrp15-86AaylvMills-Peninsula Medical CenterComment on above:Performed By: #### CDP, IPF, BMP #### [facility] [address] [place] [address] Electric [employer] Assembler And Checker: DANIEL Wootenotassium [Moles/Vol]2.9 mmol/LCritically low 3.7-5.3MMills-Peninsula Medical CenterComment on above:Performed By: #### CDP, IPF, BMP #### [facility] [address] [place] [address] Electric [employer] Assembler [employer] Checker: JACOB Wootenodium [Moles/Vol]142 mmol/KKrlvmq336-962KtisdProtestant Deaconess HospitalComment on above:Performed By: #### CDP, IPF, BMP #### [facility] [address] [place] [address] Electric [employer] Assembler [employer] Checker: Brandan Ugalde MDUrea nitrogen [Mass/Vol]33 mg/dLCabell Huntington Hospital6-20[facility] HospitalComment on above:Performed By: #### CDP, IPF, BMP #### [facility] [address] [place] [address] Electric [employer]sembler [employer] Checker: CHAVO Wooten/CRE RatioNOT REPORTEDNormal9-20[facility] HospitalComment on above:Performed By: #### CDP, IPF, BMP #### [facility] [address] [place] [address] [employer]er: JACOB Wootentaging:NOT REPORTEDNormalProtestant Deaconess HospitalComment on above:Performed By: #### CDP, IPF, BMP #### [facility] [address] [place] [address]335 Electric Organ [employer]er [employer] Checker: DANIELLE Wooten WITH AUTO DIFFERENTIALon [id number] Eos #<0.03[facility] Healthcare SystemAbsolute Immature Granulocyte0.18[facility] Healthcare SystemAbsolute Lymph #1.06LowAcmc Healthcare SystemAbsolute [place] #1.03MerOlympic Memorial HospitalBasophils (Bld) [#/Vol] 10*3/uLMerOlympic Memorial HospitalBasophils/100 WBC (Bld)0 %0 - 2 %[facility] Healthcare SystemDifferential TypeNOT REPORTEDAcmc Healthcare SystemEosinophils/100 WBC (Bld)0 %Low1 - 4 %[facility] Hematocrit (Bld) [Volume fraction]36.2 %Low36.3 - 47.1 %[facility] Hemoglobin.gastrointestinal spec 1 Ql (Stl)12.8 g/dL11.9 - 15.1 g/dLAcmc Healthcare System Immature granulocytes/100 WBC (Bld)1 %Xvyb5IcbhmAcmc Healthcare SystemInterpretation and review of laboratory resultsAbnormalAcmc Healthcare SystemLymphocytes/100 WBC (Bld)8 %Low24 - 43 %[facility] HospitalH (RBC) [Entitic mass]29.1 pg25.2 - 33.5 pgMercy Health Perrysburg HospitalHC (RBC) [Mass/Vol]35.4 g/xLAqon08.4 - 34.8 g/dLMercy Health Perrysburg HospitalV (RBC) [Entitic vol]82.3 fLLow82.6 - 102.9 fLAcmc Healthcare SystemMonocytes/100 WBC (Bld)8 %3 - 12 %[facility] NRBC Automated0.00.0 per 100 WBCAcmc Healthcare SystemPlatelet distribution width (Bld) [Ratio]13.2 %11.8 - 14.4 %[facility] Healthcare SystemPlatelet EstimateNOT REPORTEDAcmc Healthcare System Platelet mean volume (Bld) [Entitic vol]NOT REPORTED8.1 - 13.5 fLAcmc Healthcare System Platelets (Bld) [#/Vol]See Reflexed IPF ResultAcmc Healthcare SystemRBC (Bld) [#/Vol]4.40 10*6/uL3.95 - 5.11 m/uLAcmc Healthcare SystemRBC (Bld) [#/Vol]MICROCYTOSIS PRESENTAcmc Healthcare SystemSegmented neutrophils/100 WBC (Bld)82 %High36 - 65 %[facility] HealthSegs Cardlqvr75.34HighAcmc Healthcare SystemWBC (Bld) [#/Vol]12.6 10*3/uLHighAcmc Healthcare SystemWBC (Bld) [#/Vol]NOT REPORTEDUnitypoint Health Meriter Hospital with Diffon [id number]. Basophil<0.52Gxpfae2.00-0.20Pro[facility] Deaconess HospitalComment on above: Performed By: #### LEONEL IPF, BMP #### [facility] [address] [place] [address]20 Electric [employer] Checker: Karma Wooten. Eosinophil<0.89Pibpkr0.00-0.44Pro[facility] Deaconess HospitalComment on above:Performed By: #### EMILIO CASTANEDA, BMP #### [facility] [address] [place] [address]29 Electric Organ [employer]er [employer] Checker: MDAbs. SugarImm.Granulocyte0.18 k/uLNormal0.00-0.30Pro[facility] Deaconess HospitalComment on above:Performed By: #### LEONEL IPF, BMP #### [facility] [address] [place] [address]77 Electric Organ Assembler [employer] Checker: Karma Wooten.Neutrophil (Seg)10.34 k/uLHigh1.50-8.10Pro[facility]aconess HospitalComment on above:Performed By: #### LEONEL IPF, BMP #### [facility] [address] [place] [address] Electric Organ Assembler [employer] Checker: Brandan Ugalde MDBasophils/100 WBC (Bld)0 %Normal0-2[facility] HospitalComment on above:Performed By: #### LEONEL IPF, BMP #### [facility] [address] [place] [address] 68787 Electric [employer]er [employer] Checker: Brandan Ugalde MDEosinophils/100 WBC (Bld)0 %Low1-4Pro[facility] Deaconess HospitalComment on above:Performed By: #### LEONEL IPF, BMP #### [facility] [facility] [address] [place] [address] Electric [employer] As[employer]er [employer] Checker: Brandan Ugalde MDErythrocyte distribution width (RBC) [Ratio]13.2 %Yduaxt90.8-14.4Pro[facility] Deaconess HospitalComment on above:Performed By: #### LEONEL IPF, BMP #### [address] [address] Electric Organ Assembler [employer] Checker: Brandan Ugalde MDHematocrit (Bld) [Volume fraction]36.2 %Low 36.3-47.1MMills-Peninsula Medical CenterComment on above:Performed By: #### LEONEL IPF, BMP #### [place] [address] [employer] Checker: Brandan Ugalde MDHemoglobin (Bld) [Mass/Vol]12.8 g/dLNormal 11.9-15.1MMills-Peninsula Medical CenterComment on above:Performed By: #### LEONEL IPF, BMP #### [facility] [employer] [address] [place] [address] Electric [employer]er [employer] Checker: Brandan Ugalde MDImmature granulocytes/100 WBC (Bld)1 %Ulka8BfyqsProtestant Deaconess HospitalComment on above:Performed By: #### LEONEL IPF, BMP #### [place] [address] Electric [employer]er [employer] Checker: Brandan Ugalde MDLymphocytes (Bld) [#/Vol]1.06 10*3/uLLow 1.10-3.70Pro[facility]aconess HospitalComment on above:Performed By: #### LEONEL, IPF, BMP #### [facility] [employer] [address] [place] [address] Electric Organ As[employer]er [employer] Checker: German Wootenmphocytes/100 WBC (Bld)8 %Iaa67-40RatfoProtestant Deaconess HospitalComment on above:Performed By: #### LEONEL, IPF, BMP #### [facility] [place] [address] Electric Organ Assembler [employer] Checker: GAVIN WootenCH (RBC) [Entitic mass]29.1 eeGmvdft57.2-33.5 [facility] HospitalComment on above:Performed By: #### CDP, IPF, BMP #### [facility] [address] [place] [address]39 Electric [employer] Assembler [employer] Checker: GAVIN WootenCHC (RBC) [Mass/Vol]35.4 g/lYJwbl74.4-34.8Pro[facility]acon[facility] HospitalComment on above:Performed By: #### CDP, IPF, BMP #### [facility] [employer] [address] [place] [address] 33367 Electric Organ Assembler [employer] Checker: GAVIN WootenCV (RBC) [Entitic vol]82.3 fLLow82.6-102.9Pro[facility] Deaconess HospitalComment on above:Performed By: #### CDP, IPF, BMP #### [facility] [employer] [address] [place] [address] 36033 Electric [employer] Assembler [employer] Checker: GAVIN Wootenonocytes (Bld) [#/Vol]1.03 10*3/uLNormal 0.10-1.20[facility]aconess HospitalComment on above:Performed By: #### LEONEL, IPF, BMP #### [facility] [employer] [address] [place] [address]809 Electric Organ Assembler [employer] Checker: GAVIN Wootenonocytes/100 WBC (Bld)8 %Normal3-12Pro[facility] Deaconess HospitalComment on above:Performed By: #### CDP, IPF, BMP #### [facility] [employer] [facility] [address] [place] [address] 88566 Electric Organ Assembler [employer] Checker: Brandan Ugalde MDNeutrophil (Seg)82 %Bxet62-87JvsceProtestant Deaconess HospitalComment on above:Performed By: #### CDP, IPF, BMP #### [facility] [address] [place] [address]998 Electric Organ Assembler [employer] Checker: GOLDIE Wooten Automated0.0 per 100 WBCNormal0.0Pro[facility] Deaconess HospitalComment on above:Performed By: #### CDP, IPF, BMP #### [facility] [address] [place] [address] 60778 Electric [employer] Assembler [employer] Checker: Isabell Wooten CountSee Reflexed IPF ResultNormal 138-453Pro[facility] Deaconess HospitalComment on above:Performed By: #### CDP, IPF, BMP #### [facility] [address] [place] [address]10 Electric [employer] Assembler [employer] Checker: BAKARI Wooten (Bld) [#/Vol]4.40 10*6/uLNormal3.95-5.11 [facility] HospitalComment on above:Performed By: #### CDP, IPF, BMP #### [facility] [address] [place] [address] 37960 Electric [employer] Assembler [employer] Checker: BAKARI Wooten morphology finding Nom (Bld)MICROCYTOSIS [facility]-Willamette Medical CenterComment on above:Performed By: #### CDP, IPF, BMP #### [address] [address] Electric [employer] Assembler [employer] Checker: MISTY Wooten (Bld) [#/Vol]12.6 10*3/uLHigh3.5-11.3MMills-Peninsula Medical CenterComment on above:Performed By: #### CDP, IPF, BMP #### [facility] [employer] [address] [place] [address] 5[address]00 Electric Organ Assembler [employer] Checker: Laxmi Wooten Diff PerformedNOT REPORTEDAvita Health System Bucyrus HospitalComment on above:Performed By: #### CDP, IPF, BMP #### [facility] [employer] [address] [place] [address]687 Electric [employer] Assembler [employer] Checker: GAVIN WootenPVNOT REPORTEDNormal8.1-13.5Pro[facility] Deaconess HospitalComment on above:Performed By: #### EMILIO CASTANEDA BMP #### [facility] [address] [place] [address] 7[address]38 Electric Organ Assembler [employer] Checker: Sadaf Wootentelet CommentNOT [facility] HospitalComment on above:Performed By: #### EMILIO CASTANEDA, BMP #### [facility] [address] [place] [address] 7[address]12 Electric Organ Assembler [employer] Checker: MISTY Wooten MorphologyNOT [facility] HospitalComment on above:Performed By: #### EMILIO CASTANEDA, BMP #### [facility] [address] [place] [address] 28497 Electric Organ Assembler [employer] Checker: Becky Wooten Platelet Fractionon 09-28-2021 Interpretation and review of laboratory resultsAbnormalZanesville City Hospital HealthPlatelet, Lhziubclzsal065Umovd HealthComment on above:ORDERED BY LABPlatelet, Immature Fraction0.4 %Low1.1 - 10.3 %Acmc Healthcare SystemCommymichigan medical center on above:ORDERED BY LABMercy HealthLACTIC ACID, WHOLE BLOODon 33-86-1594Guoxdr Acid, Whole Blood1.4 mmol/L0.7 - 2.1 mmol/LMercy Cleveland Clinic Medina HospitalLactic Acid,Whole Blon 82-80-6569Wwuale Acid,Whole Bl1.4 mmol/LNormal0.7-2.1[facility] HospitalComment on above:Performed By: #### LACWB #### [facility] [address] [place] [address] Electric Organ Assembler [employer] Checker: DENI Wooten, DNA, Nasalon 67-80-8726Ioylkkxl Description.NASAL SWABNormalProtestant Deaconess HospitalComment on above: Performed By: #### MEILIO CASTANEDA, BMP #### [facility] [address] [place] [address] 68479 Electric Organ Assembler [employer] Checker: Brandansevero Ugalde MDMagnesiumon 90-15-1159Nvjlunjoa [Mass/Vol]1.8 mg/dL1.6 - 2.6 mg/dLMercy HealthMagnesium [Mass/Vol]1.9 mg/dLNormal1.6-2.6[facility] HospitalComment on above:Performed By: #### CDP, IPF, BMP #### [facility] [address] [place] [address] [phone] Electric Organ Assembler [employer] Checker: Brandan Ugalde, MDMagnesium [Mass/Vol]1.9 mg/dL1.6 - 2.6 mg/dL [facility] HealthMagnesium [Mass/Vol]2.1 mg/dLNormal1.6-2.6MercEisenhower Medical CenterComment on above:Performed By: #### BMP, MG, MARZENA #### [facility] [address] [place] [address] [phone] Electric Organ Assembler [employer] Checker: Brandan Ugalde, MDMagnesium [Mass/Vol]2.1 mg/dL1.6 - 2.6 mg/dL [facility] HealthMicroscopic Urinalysison 09-28-2021-[facility] HealthAmorphous, UANOT REPORTEDNoneMercy HealthBacteria, UANOT REPORTEDNoneMercy HealthCasts UAFINE GRANULARMercy HealthCasts UA5 TO 10Mer[facility] HealthCrystals, UANOT REPORTEDNone /HPF [facility] HealthEpithelial Cells UA5 TO 10[facility] HealthInterpretation and review of laboratory resultsAbnormalMercy HealthMucus, UANOT REPORTEDNoneMercy HealthOther Observations UANOT REPORTEDNOT REQ.[facility] HealthRBC, UA5 TO 10[facility] HealthRenal Epithelial, UANOT REPORTED0 /HPFMercy HealthTrichomonas, UANOT REPORTEDNoneMercy HealthWBC, UA5 TO 10[facility] HealthYeast, UAMODERATEAbnormalNoneMercy HealthMercy HealthNo Panel Informationon 23-48-2996Mmtwcyvhbtaigi and review of laboratory resultsAbnormalMercy HealthMercy HealthInterpretation and review of laboratory resultsAbnormalMercy HealthMercy HealthInterpretation and review of laboratory resultsAbnormalMercy HealthMercy HealthPLT, Immature Fract.on 09-28-2021 Platelet, Fluoresc.147 k/mFUqotyh024-137Qgwol [facility] Marine HospitalComment on above:Result Comment: ORDERED BY LABPerformed By: #### LEONEL, IPF, BMP #### [facility] [address] [place], [place] [phone] Electric [employer] Assembler [employer] Checker: ROSELIA Wooten, Immature Fract.0.4 %Low1.1-10.3[facility] HospitalComment on above:Result Comment: ORDERED BY LABPerformed By: #### LEONEL, IPF, BMP #### [facility] [address] [place], [place] [phone] Electric Organ Assembler [employer] Checker: YARI Wooten Glucose Fingerstickon 58-62-7391Enprhvg [Mass/Vol]140 mg/tZHwfr34 - 105 mg/dLZanesville City Hospital HealthInterpretation and review of laboratory resultsAbnoAurora Medical Center– BurlingtonGlucose [Mass/Vol]148 mg/dL High65 - 105 mg/dLZanesville City Hospital HealthInterpretation and review of laboratory results AbnormalMayo Clinic Health System– OakridgeGlucose [Mass/Vol]161 mg/vWCbzj85 - 105 mg/dL [facility] HealthInterpretation and review of laboratory resultsAbnoAscension Eagle River Memorial HospitalGlucose [Mass/Vol]176 mg/nMDqjl49 - 105 mg/dLAcmc Healthcare System Interpretation and review of laboratory resultsAbnoAurora Medical Center– Burlington Glucose [Mass/Vol]212 mg/fKRwzy84 - 105 mg/dLZanesville City Hospital HealthInterpretation and review of laboratory resultsAbnormMercyhealth Mercy HospitalGlucose [Mass/Vol] 223 mg/dQPjyh44 - 105 mg/dLZanesville City Hospital HealthInterpretation and review of laboratory resultsAbnormOhioHealth [facility] HealthGlucose [Mass/Vol]208 mg/fLZdbo24 - 105 mg/dLZanesville City Hospital HealthInterpretation and review of laboratory resultsAbnormMercyhealth Mercy HospitalGlucose [Mass/Vol]248 mg/hDOjen47 - 105 mg/dLZanesville City Hospital Health Interpretation and review of laboratory resultsAbnormalMercy HealthMercy Health Glucose [Mass/Vol]217 mg/cEQkez69 - 105 mg/dLMer HealthInterpretation and review of laboratory resultsAbnormalHighland District Hospitalcy HealthGlucose [Mass/Vol] 205 mg/dZEijm16 - 105 mg/dLMer HealthInterpretation and review of laboratory resultsAbnormalAshtabula General Hospital HealthGlucose [Mass/Vol]199 mg/oMOokz82 - 105 mg/dLMer HealthInterpretation and review of laboratory resultsAbnormalAshtabula General Hospital HealthGlucose [Mass/Vol]178 mg/vNUenn68 - 105 mg/dLZanesville City Hospital Health Interpretation and review of laboratory resultsAbnormOhioHealth [facility] Health Glucose [Mass/Vol]151 mg/iFIubg09 - 105 mg/dLMer HealthInterpretation and review of laboratory resultsAbnormOhioHealth [facility] HealthGlucose [Mass/Vol] 162 mg/cTKlfi02 - 105 mg/dLMer HealthInterpretation and review of laboratory resultsAbnormOhioHealth [facility] HealthPhosphoruson 01-12-8481Rgrurwjuk [Mass/Vol]1.9 mg/dLLow2.6 - 4.5 mg/dLMer HealthPhosphate [Mass/Vol]1.6 mg/dL Low2.6 - 4.5 mg/dLMercy HealthPhosphate [Mass/Vol]1.9 mg/dLLow2.6 - 4.5 mg/dL [facility] HealthPhosphorus, Inorg.on 72-49-1929Elbyvzqquk, Inorg.1.6 mg/dLLow2.6-4.5 [facility] HospitalComment on above:Performed By: #### CDP, IPF, BMP #### [facility] [address] [place], [place] [phone] Electric [employer] Assembler [employer] Checker: DANIEL Wootenhosphorus, Inorg.1.9 mg/dLLow2.6-4.5Pro[facility]aconess HospitalComment on above:Performed By: #### CDP, IPF, BMP #### [facility] [address] [place] [address] [phone] Electric Organ Assembler [employer] Checker: Brandan Ugalde MDUrinalysison 08-27-2706Wijbjpijs UrineNegative NEGATIVEMercy HealthColor, UAYellowYellowMercy HealthGlucose, Ur1+Abnormal NEGATIVEMercy HealthInterpretation and review of laboratory resultsAbnormalMercy HealthKetones Ql (U)SMALLAbnormalNEGATIVEMercy HealthLeukocyte esterase Test strip Ql (U)MODERATEAbnormalNEGATIVEMercy HealthNitrite, UrineNegativeNEGATIVE [facility] HealthpH, UA5.5Mer[facility] HealthProtein, UA2+AbnormalNEGATIVEMercy Health Specific [place], UA1.016Mercy HealthTurbidity UATurbidAbnormalClearMercy Health Urinalysis CommentsNOT REPORTEDMercy HealthUrine HgbLARGEAbnormalNEGATIVEMercy HealthUrobilinogen, UrineNormalNormalMercy HealthMercy HealthUrinalysis, Routine on 60-93-3243Myqzhmhtc, SemiQt,UrNegativeNormalNEGMercy [facility] HospitalComment on above:Performed By: #### FRANK SOLOO #### [facility] [address] [place] [address] Electric [employer] Assembler [employer] Checker: Ijeoma Wooten UrineLARGEAbnormalNEGMerLodi Memorial HospitalComment on above:Performed By: #### GERMANIA, UMICAO #### [facility] [address] [place] [address] 86228 Electric [employer] Assembler [employer] Checker: Allie Wootenrity (U)TurbidAbnormalCLEARMercy [facility] Francisco Marine HospitalComment on above:Performed By: #### GERMANIA, UMICAO #### [facility] [address] [place] [address] 75687 Electric Organ Assembler [employer] Checker: DANIELLE Wootenolor (U)YellowNormalYELMerLodi Memorial HospitalComment on above:Performed By: #### GERMANIA, UMICAO #### [facility] [address] [place] [address] 62037 Electric Organ Assembler [employer] Checker: Wilbert Wooten Ql (U)1+AbnormalNEGProtestant Deaconess HospitalComment on above:Performed By: #### UA, UMICAO #### [facility] [address] [place] [address] 72298 Electric Organ Assembler [employer] Checker: Brandan Ugalde MDKetones Ql (U)SMALLAbnormalNEGProtestant Deaconess HospitalComment on above:Performed By: #### UA, UMICAO #### [facility] [address] [place] [address] 69617 Electric [employer] Assembler [employer] Checker: Brandan Ugalde MDLeukocyte esterase Test strip Ql (U)MODERATE AbnormalNEGProtestant Deaconess HospitalComment on above:Performed By: #### UA, UMICAO #### [facility] [address] [place] [address] 24184 Electric [employer] Assembler [employer] Checker: Lianet Wootentrite,UrNegativeNormalNEGProtestant Deaconess HospitalComment on above:Performed By: #### GERMANIA, UMICAO #### [facility] [address] [place] [address] 21420 Electric [employer] Assembler [employer] Checker: DENISA Wooten,Ur5.8Nvjqap3.0-8.0Pro[facility]acon[facility] HospitalComment on above:Performed By: #### UA, UMICAO #### [facility] [address] [place] [address] 83646 Electric [employer] Assembler [employer] Checker: Charmaine Wooten Ql (U)2+AbnormalNEGProtestant Deaconess HospitalComment on above:Performed By: #### UA, UMICAO #### [facility] [address] [place] [address]120 Electric [employer] Assembler [employer] Checker: Clarisa Wooten. [place],Ur1.377Vtlqjt5.005-1.030Pro[facility]aconess HospitalComment on above:Performed By: #### GERMANIA, UMICAO #### [facility] [address] [place] [address]82 Electric [employer]sembler [employer] Checker: Brandan Madoff, MDUrobilinogen,UrNormalNormalNORMMerLodi Memorial HospitalComment on above:Performed By: #### PRATIBHA SOLO #### [facility] [address] [place] [address] 24451 Electric [employer] Assembler [employer] Checker: DANIELLE WootenommentNOT REPORTEDNormalMercy [facility] Francisco Marine HospitalComment on above:Performed By: #### PRATIBHA SOLO #### [facility] [address] [place] [address] 05919 Electric [employer] Assembler [employer] Checker: Brandan Ugalde MDUrinalysis,Microon 09-28-2021-----NormalProtestant Deaconess HospitalComment on above:Performed By: #### PRATIBHA SOLO #### [facility] [address] [place] [address]143 Electric [employer] Assembler [employer] Checker: DANIELLE WootenastsFINE GRANULARNormal0-2MercEisenhower Medical CenterComment on above:Result Comment: 5 TO 10Performed By: #### FRANK SOLOO #### [facility] [address] [place] [address]211 Electric [employer] Assembler [employer] Checker: Brandan Ugalde MDEpithelial cells LM Ql (Urine sed)5 TO 10Normal 0-5MerLodi Memorial HospitalComment on above:Performed By: #### FRANK SOLOO #### [facility] [address] [place] [address] 01383 Electric [employer] Assembler [employer] Checker: Brandan Ugalde MDUrine RBC's5 TO 85Pmfdve6-7Dphmy [facility] HospitalComment on above:Performed By: #### GERMANIA UMICAO #### [facility] [address] [place] [address] 59576 Electric [employer] Assembler [employer] Checker: Brandan Ugalde MDUrine WBC's5 TO 57Wbainp4-8Xbzok [facility] HospitalComment on above:Performed By: #### GERMANIA UMICAO #### [facility] [employer] [address] [place] [address] [place] [address] [employer] Assembler [employer] Checker: Rand WootenastMODERATEAbnormalNONOur Lady of Mercy HospitalComment on above:Performed By: #### GERMANIA, UMICAO #### [facility] [address] [place] [address]60 Electric [employer]sembler [employer] Checker: Yudi Wootenrphouger sediment LM Ql (Urine sed)NOT REPORTED NormalNONEMeVictor Valley HospitalComment on above:Performed By: #### GERMANIA, UMICAO #### [facility] [address] [place] [address] 31841 Electric [employer] Assembler [employer] Checker: Brandan Ugalde MDBacteriaNOT REPORTEDNormalNONEMeVictor Valley HospitalComment on above:Performed By: #### GERMANIA UMICAO #### [facility] [address] [place] [address] 6[address]53 Electric [employer] Assembler [employer] Checker: Kimmy Wooten LM Nom (Urine sed)NOT REPORTEDNormal NONEProtestant Deaconess HospitalComment on above:Performed By: #### GERMANIA UMICAO #### [facility] [address] [place] [address] 76874 Electric [employer] Assembler [employer] Checker: Brandan Ugalde MDEpithelial, RenalNOT GBZAFQYIWnnscp1LwaxcProtestant Deaconess HospitalComment on above:Performed By: #### GERMANIA UMICAO #### [facility] [address] [place] [address]61 Electric [employer] Assembler [employer] Checker: GAVIN Wootenucus StrandsNOT REPORTEDNormalNONEMeVictor Valley HospitalComment on above:Performed By: #### GERMANIA UMICAO #### [facility] [address] [place] [address] Electric [employer] Assembler [employer] Checker: Brandan Ugalde MDOther ObservationsNOT REPORTEDNormalNREQMerLodi Memorial HospitalComment on above:Performed By: #### GERMANIA UMICAO #### [address] [address] Electric [employer] As[employer]er [employer] Checker: Brandan Ugalde MDTrichomonasNOT REPORTEDNormalNONEMeVictor Valley HospitalComment on above:Performed By: #### PRATIBHA SOLO #### [address] [address] [employer] Checker: Brandan Ugalde MDVenous Blood Gaseson 64-67-4568Muoy Temp.37.0 NormalProtestant Deaconess HospitalComment on above:Performed By: #### VBG #### [address] [address] [employer] As[employer] Checker: Kenji Wooten Hgb2.2 %Normal0-5Pro[facility]aconess HospitalComment on above:Result Comment: Reference Range: Non-Smokers 0-2% Average Smoker 2-4% Heavy Smoker <10%Performed By: #### VBG #### [address] [address] [employer]er [employer] Checker: Brandan Ugalde MDSZYRJ2OLKOYRJDcbynkGnfjfProtestant Deaconess HospitalComment on above:Performed By: #### VBG #### [address] [address] Electric [employer] Assembler [employer] Checker: Brandan Ugalde MDHCO3 (Bld) [Moles/Vol]17.3 mmol/YRfq84-70SpfufProtestant Deaconess HospitalComment on above:Performed By: #### VBG #### [address] [address] Electric [employer] Assembler [employer] Checker: Brandan Ugalde MDNegative Base Excess8.2 mmol/LHigh0.0-2.0[facility] HospitalComment on above:Performed By: #### VBG #### [address] [address] Electric [employer] As[employer]er [employer] Checker: Brandan Ugalde MDOxygen (Bld) [Partial pressure]34.0 mm[Hg]Normal 30-50Pro[facility]acon[facility] HospitalComment on above:Performed By: #### VBG #### [facility] [address] [place] [address] Electric [employer] Assembler [employer] Checker: Brandan Ugalde MDOxygen saturation in Blood80.7 %Myxrxv12.0-85.0 [facility] HospitalComment on above:Performed By: #### VBG #### [address] [address] Electric [employer]er [employer] Checker: Brandan Ugalde NPgAJ954.8Wgu70-29JoqvlProtestant Deaconess Hospital Comment on above:Performed By: #### VBG #### [address] [address] Electric [employer] As[employer]er [employer] Checker: Brandan Ugalde [facility] (Bld)7.290 [pH]Low7.320-7.420[facility] HospitalComment on above:Performed By: #### VBG #### [address] [address] [employer]sembler [employer] Checker: Miguel Wooten TestNOT REPORTEDAvita Health System Bucyrus HospitalComment on above:Performed By: #### VBG #### [address] [address] Electric [employer] Assembler [employer] Checker: GAVIN WootenethemoglobinNOT REPORTEDNormal0.0-1.5[facility] HospitalComment on above:Performed By: #### VBG #### [address] [address] Electric [employer] Assembler [employer] Checker: GAVIN WootenodeNOT REPORTEDNormalProtestant Deaconess HospitalComment on above:Performed By: #### VBG #### [facility] [employer] [address] [place] [address] Electric Organ Assembler [employer] Checker: Ary Wootenification TimeNOT REPORTEDrmalProtestant Deaconess HospitalComment on above:Performed By: #### VBG #### [facility] [address] [place] [address] Electric Organ Assembler And Checker: Brandan Ugalde MDNotification:NOT REPORTEDNormalProtestant Deaconess HospitalComment on above:Performed By: #### VBG #### [facility] [address] [place] [address] Electric Organ Assembler And Checker: Brandan Ugalde MDO2 Device/Flow/%NOT REPORTEDNormalProtestant Deaconess HospitalComment on above:Performed By: #### VBG #### [facility] [address] [place] [address] Electric Organ Assembler And Checker: Brandan Ugalde MDOxyhemoglobinNOT KYKHUSBDInmyzq33.0-98.0Protestant Deaconess HospitalComment on above:Performed By: #### VBG #### [address] [address] Electric Organ Assembler And Checker: DANIEL Wootenco2 Adj'd for Temp.NOT BILBWAACGbvrvo02-70CjmjvProtestant Deaconess HospitalComment on above:Performed By: #### VBG #### [facility] [address] [place] [address] Electric Organ Assembler And Checker: DANIEL WootenEEP/CPAPNOT REPORTEDNormalProtestant Deaconess HospitalComment on above:Performed By: #### VBG #### [facility] [address] [place] [address] Electric Organ Assembler And Checker: Daniel Wooten Adjst'd for Temp.NOT REPORTEDNormal 7.320-7.420Pro[facility]ant Deaconess HospitalComment on above:Performed By: #### VBG #### [facility] [address] [place] [address] Electric Organ Assembler And Checker: Daniel WootenO2 Adj'd for Temp.NOT FNUAOSWIGiqekx29-55FdkbkLodi Memorial HospitalComment on above:Performed By: #### VBG #### [facility] [address] [place] [address] Electric Organ Assembler And Checker: Caren Wooten Base ExcessNOT REPORTEDNormal0.0-2.0 [facility]aconess HospitalComment on above:Performed By: #### VBG #### [facility] [address] [place] [address] Electric Organ Assembler And Checker: DANIEL WootenSVNOT REPORTEDNormalMerLodi Memorial HospitalComment on above:Performed By: #### VBG #### [address] [address] Electric Organ Assembler And Checker: MDPt. Sugar PositionNOT REPORTEDNormalMerLodi Memorial HospitalComment on above:Performed By: #### VBG #### [address] [address] Electric Organ Assembler And Checker: Bakari Wooten RateNOT REPORTEDNormalProtestant Deaconess HospitalComment on above:Performed By: #### VBG #### [address] [address] Electric Organ Assembler And Checker: Stanislaw Wooten RateNOT REPORTEDNormalProtestant Deaconess HospitalComment on above:Performed By: #### VBG #### [address] [address] Electric Organ Assembler And Checker: Lindsey Wooten DrawnNOT REPORTEDNormalProtestant Deaconess HospitalComment on above:Performed By: #### VBG #### [address] [address] Electric Organ Assembler And Checker: Donald Wooten for RespiratoryNOT REPORTEDNormalProtestant Deaconess HospitalComment on above:Performed By: #### VBG #### [facility] [employer] [address] [place] [address] [place] [address] Electric Organ Assembler And Checker: Constantine Wooten HbNOT TLFHTNNHNdoyzh92.0-16.0Protestant Deaconess HospitalComment on above:Performed By: #### VBG #### [facility] [address] [place] [address] Electric Organ Assembler And Checker: Constantine Wooten RateNOT REPORTEDNormalProtestant Deaconess HospitalComment on above:Performed By: #### VBG #### [facility] [address] [place] [address] Electric Organ Assembler And Checker: Brandan Ugalde MDVTNOT [facility]ENTERNoMercy Health Clermont HospitalComment on above:Performed By: #### VBG #### [employer] [address] [place] [address] Electric Organ Assembler And Checker: KELLIE Wooten CHEST PORTABLEon [id number] CHEST PORTABLE EXAMINATION: ONE XRAY VIEW OF [...] Signed by: Perla Sommer MD 09/28/21 Final resultNormalProtestant Deaconess HospitalBilateral scattered pulmonary opacities consistent with multifocal airspace disease/pneumonia. No extrapleural air. MHPN RIS CONSOLIDATEDEXAMINATION: ONE XRAY VIEW OF THE [...] No effusion or extrapleural air is noted. Perla Smith MD - 09/28/2021 EXAMINATION: ONE XRAY VIEW [...] with multifocal airspace disease/pneumonia. No extrapleural air. Personaling Phone: radiology Study observation (narrative)Personaling Phone: XR CHEST PORTABLEOrdered By: Perla Sommer on 09-28-2021 Personaling Phone: ANKLE LEFT MIN 3 VIEWS Mon [phone] LEFT MIN 3 VIEWS MPatient Name: CARISSA [...] any questions or concerns, please contact the [facility] radiology department. Electronically Signed By: Mt Ho MD On: 05/23/2021 1:42 [facility] CenterConsent for Treatmenton [id number] for Treatment [id number]:127NormalJono [facility] Clinical Summaryon [id number] Clinical Summary [place] [id number] ED Clinical Summary Person Information Name: [facility] Age[facility] 40 Years : 1980 Sex: Female Language: Cymro PCP: DIAZ DALTON MD Marital Status: Visit [...] 02/06/2021 02:47:40 02/06/2021 02:47:40 ADDRESS: [place] [place] [phone] PHYS DOC NOTES: MEDICAL INFORMATION: Prescriptions Given: PATIENT EDUCATION INFORMATION: Instructions: Follow up: DIAGNOSIS:NormalFisher Ata Medical CenterED Patient Education Noteon [id number] Patient Education NoteNormalJacober Ata Medical CenterED Patient Summaryon [id number] Patient Summary [place] [id number] Patient Discharge Instructions Person Information Name: CARISSA SANTOS Age: 40 Years Arrival Date: 02/05/2021 22:28:14 Discharge Diagnosis: Primary Care Physician: DIAZ DALTON MD Provider Information Primary Provider: Loco Marcos MD Advanced Auto Headlight Mechanic:None The exam and treatment you received in the Emergency Department were for an urgent problem and are not intended as complete care. It is important that you follow up with a doctor, nurse practitioner,or physician?s it assistant for ongoing care. If your symptoms [...] opioids can be used to help relieve tyklibmj-yc-szuril pain and are often prescribed following a [...] your community drug take- back program or [employer] mail-back program, or flush them down the toilet, following guidance from the Food and Drug Administration (www.fda.gov/Drugs/ResourcesForYou). ? Visit www.cdc.gov/drugoverdose to learn about the risks of opioids abuse and overdose. ? If you believe you may be struggling with addiction, tell your health healthcare educator and ask for guidance or call [facility] National Helpline at 2-133-950-QXVP. a Source: US Department of Health and Human Services/Center for Disease Control & Prevention [facility] Medications Given: Medication Dose Route No medications found. Medication Inf (more content not included)...[facility] CHEST AND LATERALon [id number] AND LATERALOhioHealth [facility]erington [facility] Department of Radiology [address] [place] [phone] Patient Name: CARISSA SANTOS : 1980 Sex: F Age: Race: White Pt. Location: Patient Status: O Ordered Date: 02/04/2021 9:40:00 AM Completed Date: 02/04/2021 09:42 AM Requesting Provider: ALIYA RUIZ Attending Provider: ALIYA RUIZ Report Copy To: Signs & Symptoms: R22.32 Localized swelling, mass and lump, left upper limb I10 History: [place] Comments: ap/lat Exam: CHEST AND LATERAL CLINICAL INFORMATION: R22.32 Localized swelling, mass and lump, left upper limb I10 COMPARISON: None. VIEWS: 2. IMPRESSION: 1. No airspace opacifications. No effusion. 2. Rounded nodule in the right midlung measuring 1.[address] chest. 3. Normal cardiomediastinal silhouette. 4. Degenerative changes of the thoracic spine. Electronically signed: Shama Calvin. Transcribed by: [email or web address], User Resident: Electronically Signed by: SHMAA CALVIN @ 02/04/2021 02:25 [facility] HospitalComment on above:Order Comment: Erich LEFT [id number] [facility] Department of Radiology [address] [place] [phone] Patient Name: CARISSA SANTOS : 1980 Sex: F Age: Race: White Pt. Location: Patient Status: Ordered Date: 02/04/2021 8:55:00 AM Completed Date: 02/04/2021 09:20 AM Requesting Provider: ALIYA RUIZ Attending Provider: Report Copy To: Signs & Symptoms: R22.32 Localized swelling, mass and lump, left upper limb I10 History: [place] Comments: Evaluate Exam: HUMERUS LEFT HUMERUS LEFT CLINICAL INFORMATION: Patient complains of left shoulder and humerus pain and swelling for three years COMPARISON: None. IMPRESSION: 1. No fracture or other acute osseous abnormalities identified. No abnormal sclerosis. Electronically signed: Shama Calvin. Transcribed by: [email or web address], User Resident: Electronically Signed by: SHAMA CALVIN @ 02/04/2021 01:59 PMNMemorial Health System Selby General HospitalComment on above:Order Comment: Evaluate SHOULDER LEFTon [id number] [facility] Department of Radiology [address] [place] [phone] Patient Name: CARISSA SANTOS : 1980 [...] sclerosis. Electronically signed: Shama Calvin. Transcribed by: [email or web address], User Resident: Electronically Signed by: SHMAA CALVIN @ 02/04/2021 01:58 PMNMemorial Health System Selby General HospitalComment on above:Order Comment: Evaluate Vital Signs Date TimeVital SignValuePerforming CkdqrroysVlxxkdkb26-06-8804 09:21-0500Body zfwioq629.9 cmKelsi Mici PA-C Work Phone: [facility] [employer] Hqxrnq81-75-2680 09:21-0500Body mass index (BMI) [Ratio]42.32 kg/p5Tbjtk Mici PA-C Work Phone: [facility]11-03-2025 09:21-0500Body kinway726.61 kgKelsi Mici PA-C Work Phone: [facility]11-03-2025 09:21-0500Diastolic blood tbjihcqs65 mm[Hg]Chasidy Mici PA-C Work Phone: [facility]11-03-2025 09:21-0500Heart rate 92 /minKelsi Mici PA-C Work Phone: [facility]11-03-2025 09:21-0500Systolic blood iotazcos611 mm[Hg]Chasidy Mici PA-C Work Phone: [facility]10-09-2025 11:05-0400Diastolic blood tedzkyyl77 mm[Hg]Diaz Dalton MD Work Phone: [facility]10-09-2025 11:05-0400 Heart rate78 /minDiaz Dalton MD Work Phone: [facility]10-09-2025 11:05-0400 Respiratory rate18 /minDiaz Dalton MD Work Phone: [facility]10-09-2025 11:05-0400 SaO2% (BldA) [Mass fraction]96 %Diaz Dalton MD Work Phone: [facility]10-09-2025 11:05-0400 Systolic blood lkiuugwk589 mm[Hg]Diaz Dalton MD Work Phone: [facility]10-09-2025 10:39-0400 Body neblzaiwtxh38.2 [degF]Diaz Dalton MD Work Phone: 1([phone]10-09-2025 08:53-0400 Body ywtbft830.94 cmDiaz Dalton MD Work Phone: 1(807)[address] [place], [place] 6684910-09-2025 08:53-0400 Body dfgafk48.44 kgDiaz Dalton MD Work Phone: 1(839)[address] [place], [place] 6684910-02-2025 11:17-0400 Body .94 cmDiaz Dalton MD Work Phone: 1(769)[address] [place], [place] 6684910-02-2025 11:17-0400 Body mass index (BMI) [Ratio]40.8 kg/m2Diaz Dalton MD Work Phone: 1(426)[address] [place], [place] 6684910-02-2025 11:17-0400 Body ggplvymtdul04.1 [degF]Diaz Dalton MD Work Phone: 1(684)[address] [place], [place] 6684910-02-2025 11:17-0400 Body qhkeaw01.97 kgDiaz Dalton MD Work Phone: 1(073)[address] [place], [place] 6684910-02-2025 11:17-0400 Diastolic blood spgauyen77 mm[Hg]Diaz Dalton MD Work Phone: 1(639)[address] [place], [place] 6684910-02-2025 11:17-0400 Heart rate96 /minDiaz Dalton MD Work Phone: 1(598)[address] [place], [place] 6684910-02-2025 11:17-0400 Respiratory rate20 /minDiaz Dalton MD Work Phone: 1(184)[address] [place], [place] 6684910-02-2025 11:17-0400 SaO2% (BldA) [Mass fraction]96 %Diaz Dalton MD Work Phone: 1(584)[address] [place], [place] 6684910-02-2025 11:17-0400 Systolic blood hlgfzqba851 mm[Hg]Diaz Dalton MD Work Phone: [facility]09-30-2025 13:24-0400 Body .9 cmMattyuridia Medina PA Work Phone: [facility] CenterDebsejxgts82-54-9869 13:24-0400Body mass index (BMI) [Ratio]38.92 kg/m6Odebsuj Medina PA Work Phone: [facility] CenterIjkgxrcfvx66-39-6893 13:24-0400Body qnyigg45.44 kgMattyuridia Medina PA Work Phone: [facility] CenterQaqayurxtb67-92-4203 13:26-0400Body itrrqc593.9 cmCorey Demar DO Work Phone: [facility] CenterKerabdmamq31-39-2562 13:26-0400Body mass index (BMI) [Ratio]41.57 kg/h6Ubqda Demar DO Work Phone: [facility] CenterLphfeswwsp30-75-4983 13:26-0400Body aywsqs89.79 kgCorey Demar DO Work Phone: [facility] CenterHbtnqmvwsm55-39-4110 13:26-0400Diastolic blood fuhfufjn49 mm[Hg]Feliz Demar DO Work Phone: [facility] CenterWvvssbxjto80-53-2150 13:26-0400Systolic blood vlyxznna610 mm[Hg]Feliz Demar DO Work Phone: [facility] CenterEadnexaoov89-85-5630 10:48-0400Diastolic blood jhfualbn57 mm[Hg]Diaz Dalton MD Work Phone: [facility]09-11-2025 10:48-0400 Heart rate71 /minDiaz Dalton MD Work Phone: [facility]09-11-2025 10:48-0400 Respiratory rate16 /minDiaz Dalton MD Work Phone: [facility]09-11-2025 10:48-0400 SaO2% (BldA) [Mass fraction]100 %Diaz Dalton MD Work Phone: [facility]09-11-2025 10:48-0400 Systolic blood ahepkiue589 mm[Hg]Diaz Dalton MD Work Phone: [facility]09-11-2025 09:08-0400 Body debqlr479.94 cmDiaz Dalton MD Work Phone: 1(594)[address] [place], [place] 9744609-11-2025 09:08-0400 Body ewqegfzwlgy35.5 [degF]Diaz Dalton MD Work Phone: 1(894)128811[address] [place], [place] 9744609-11-2025 09:08-0400 Body .5 kgDiaz Dalton MD Work Phone: 1(269)563256[address] [place], [place] 9744609-10-2025 11:54-0400 Body vdmtet634.9 cmStaciniurka Quiñonesgel MERCHANDISING COORDINATOR-DRAGLINE MECHANIC Work Phone: [facility]09-10-2025 11:54-0400Body mass index (BMI) [Ratio]40.83 kg/y4Tvyxrz Kregel MERCHANDISING COORDINATOR-DRAGLINE MECHANIC Work Phone: [facility]09-10-2025 11:54-0400Body imeryc29.02 kgStsilvia Kregel MERCHANDISING COORDINATOR-DRAGLINE MECHANIC Work Phone: [facility]09-10-2025 11:54-0400Diastolic blood ugdblcet44 mm[Hg]Pachecoharriett Quiñonesgel MERCHANDISING COORDINATOR-DRAGLINE MECHANIC Work Phone: [facility]09-10-2025 11:54-0400Heart rate 77 /minStaharriett Kregel MERCHANDISING COORDINATOR-DRAGLINE MECHANIC Work Phone: [facility]09-10-2025 11:54-4378IjU2% (BldA) [Mass fraction]100 %Pachecoharriett Quiñonesgel MERCHANDISING COORDINATOR-DRAGLINE MECHANIC Work Phone: [facility] Medical CenterComment on above:Arrived on 3Lnc of Q933-86-9599 11:54-0400Systolic blood plsvuzxv375 mm[Hg]Pacheco Madrigal MERCHANDISING COORDINATOR-DRAGLINE MECHANIC Work Phone: [facility]08-11-2025 13:38-0400Body mass index (BMI) [Ratio]39.07 kg/b6Dwhte Demar DO Work Phone: [facility] CenterXenlsjnimy93-44-8232 13:38-0400Body hxzobj75.78 kgCorey Demar DO Work Phone: [facility] CenterVykfqcchyk13-27-2047 13:38-0400Diastolic blood rylxmfkw89 mm[Hg]Feliz Demar DO Work Phone: [facility] CenterVqxzjmvxqt28-49-0787 13:38-0400Systolic blood bpomurgu105 mm[Hg]Feliz Demar DO Work Phone: [facility] CenterTzxcdbwabt06-89-9199 13:48-0400Body mass index (BMI) [Ratio]40.25 kg/a8Hlcxz Demar DO Work Phone: 1(734)866-[address] [place], [place] [address]Oifnfjwhed57-54-9867 13:48-0400Body jveejz52.62 kgCorey Demar DO Work Phone: [facility] CenterZbfusupjff09-79-5384 13:48-0400Diastolic blood oxhlvysr31 mm[Hg]Feliz Demar DO Work Phone: [facility] CenterThgihoupbi65-86-6955 13:48-0400Systolic blood wbiccaie746 mm[Hg]Feliz Demar DO Work Phone: [facility] CenterLatkzasyde43-49-9238 09:01-0400Body bzbomo303.9 cmScharles Arrieta DO Work Phone: [facility]07-10-2025 09:01-0400Body mass index (BMI) [Ratio]40.43 kg/m0Joexcp Meenakshi DO Work Phone: [facility]07-10-2025 09:01-0400Body opyrbh20.07 kgShsade Montalvoton DO Work Phone: [facility]07-10-2025 09:01-0400Diastolic blood xcoukfwr33 mm[Hg]Lindsay Arrieta DO Work Phone: [facility]07-10-2025 09:01-0400Heart rate 81 /minScharles Arrieta DO Work Phone: [facility]07-10-2025 09:01-4904XfU1% (BldA) [Mass fraction]100 %Lindsay Arrieta DO Work Phone: [facility] SystemComment on above:3 liters 03-13-2025 09:01-0400Systolic blood dlrvxaen496 mm[Hg]Lindsay Arrieta DO Work Phone: [facility]06-09-2025 13:23-0400Body kupfle266.9 cmDiaz Dalton MD Work Phone: [facility] CenterVupwuijfwg03-79-4437 13:23-0400Body mass index (BMI) [Ratio]40.25 kg/m2Diaz Dalton MD Work Phone: [facility] CenterHummckulcy77-87-1683 13:23-0400Body temperature 97.3 [degF]Diaz Dalton MD Work Phone: [facility] CenterLncjrnrgtn74-24-0784 13:23-0400Body aznbls79.62 kgDiaz Dalton MD Work Phone: [facility] CenterUdbptotxoy36-95-7731 13:23-0400Diastolic blood kzxyxstw25 mm[Hg]Diaz Dalton MD Work Phone: [facility] CenterIvdfiveqss68-89-6371 13:23-0400Heart rate85 /min Diaz Dalton MD Work Phone: [facility] CenterLeotqewmvv20-40-1005 13:23-0400Respiratory rate20 /minDiaz Dalton MD Work Phone: [facility] CenterWgsvasbxnj39-42-3273 13:23-2436MuP2% (BldA) [Mass fraction]98 %Diaz Dalton MD Work Phone: [facility] CenterLgojsfgmak42-87-5006 13:23-0400Systolic blood btpqevtp038 mm[Hg]Diaz Dalton MD Work Phone: [facility] CenterKumwxcoqqj75-25-4226 08:08-0400Body euspkk734.9 Clare Recio MD Work Phone: [facility]05-02-2025 08:08-0400Body mass index (BMI) [Ratio]41.38 kg/a9YqjmrKatelyn Recio MD Work Phone: [facility]05-02-2025 08:08-0400Body .34 kgKatelyn Recio MD Work Phone: [facility]05-02-2025 08:08-0400Diastolic blood tpcllbii31 mm[Hg]Katelyn Recio MD Work Phone: [facility]05-02-2025 08:08-0400Heart rate 76 /minKatelyn Recio MD Work Phone: 1([phone] [place], [place] [address]0105-02-2025 08:08-9724HdN4% (BldA) [Mass fraction]100 %Katelyn Recio MD Work Phone: [facility]05-02-2025 08:08-0400Systolic blood vbgjlxia044 mm[Hg]Katelyn Recio MD Work Phone: [facility]04-02-2025 13:04-0400Body .9 cmStaharriett Madrigal APRN-DRAGLINE MECHANIC Work Phone: [facility]04-02-2025 13:04-0400Body mass index (BMI) [Ratio]40 kg/a5ImpuevPacheco Madrigal APRN-DRAGLINE MECHANIC Work Phone: [facility]04-02-2025 13:04-0400Body elbncm65.03 kgStsilvia Madrigal APRN-DRAGLINE MECHANIC Work Phone: [facility]04-02-2025 13:04-0400Diastolic blood dbiyhwyy72 mm[Hg]Pacheco Madrigal MERCHANDISING COORDINATOR-DRAGLINE MECHANIC Work Phone: [facility]04-02-2025 13:04-0400Heart rate 87 /minStaciniurka Madrigal MERCHANDISING COORDINATOR-DRAGLINE MECHANIC Work Phone: [facility]04-02-2025 13:04-1892LiP7% (BldA) [Mass fraction]98 %Pacheco Madrigal MERCHANDISING COORDINATOR-DRAGLINE MECHANIC Work Phone: [facility] Medical CenterComment on above:Arrived on 3Lnc of W480-44-5022 13:04-0400Systolic blood lpwfhwqo43 mm[Hg]Pacheco Madrigal MERCHANDISING COORDINATOR-DRAGLINE MECHANIC Work Phone: [facility]03-06-2025 09:57-0500Body mass index (BMI) [Ratio]41.57 kg/m2Diaz Dalton MD Work Phone: [facility] CenterQopclvoroy94-83-0103 09:57-0500Body temperature 97.7 [degF]Diaz Dalton MD Work Phone: [facility] CenterUfoxtckaoa27-92-3811 09:57-0500Body .79 kgDiaz Dalton MD Work Phone: [facility] CenterHchgrignlg68-83-1281 09:57-0500Diastolic blood ufzloejl20 mm[Hg]Diaz Dalton MD Work Phone: [facility] CenterUsssyzbiwz51-55-8680 09:57-0500Heart rate85 /min Diaz Dalton MD Work Phone: noSSM RehabWfkhapbcpp35-20-2561 09:57-3985UeQ1% (BldA) [Mass fraction]95 %Diaz Dalton MD Work Phone: [facility] CenterFdirwrlcen48-23-1022 09:57-0500Systolic blood mm[Hg]Diaz Dalton MD Work Phone: noSSM RehabEgioczddjl32-09-5697 14:08-0500Body mass index (BMI) [Ratio]41 kg/m2Diaz Dalton MD Work Phone: [facility] CenterZiwuvbuzbd38-83-8038 14:08-0500Body temperature 97.81 [degF]Diaz Dalton MD Work Phone: [facility] CenterRvywbpbvig20-72-5285 14:08-0500Body meqsbu20.43 kgDiaz Dalton MD Work Phone: [facility] CenterPlwspfpltd36-02-1484 14:08-0500Diastolic blood mfpcoghu81 mm[Hg]Diaz Dalton MD Work Phone: [facility] CenterIgsjdztsix38-56-4045 14:08-0500Heart rate96 /min Diaz Dalton MD Work Phone: [facility] CenterHzivdtmbiq36-66-3955 14:08-9880PqW6% (BldA) [Mass fraction]96 %Diaz Dalton MD Work Phone: [facility] CenterZycmojtzdi83-31-8407 14:08-0500Systolic blood mmvggcoa812 mm[Hg]Diaz Dalton MD Work Phone: [facility] CenterTriuawshfp99-99-4546 13:23-0500Body mapezt587.9 cmAmagdalenahotee Rusher DPM Work Phone: [facility] CenterHuqgudyssl00-22-0227 13:23-0500Body mass index (BMI) [Ratio]42.89 kg/j4Cvywgmc Rusher DPM Work Phone: [facility] CenterOftsvtsjew86-14-9526 13:23-0500Body giseel735.97 kgAnthony Rusher DPM Work Phone: [facility] CenterYxeychwxti99-37-0219 07:57-0500Body .9 Clare Recio MD Work Phone: [facility]02-03-2025 07:57-0500Body mass index (BMI) [Ratio]41.76 kg/w7XzditKatelyn Recio MD Work Phone: [facility]02-03-2025 07:57-0500Body vzbzum802.25 kgLaura Debenedetti MD Work Phone: [facility]02-03-2025 07:57-0500Diastolic blood teoksdzo62 mm[Hg]Katelyn Recio MD Work Phone: [facility]02-03-2025 07:57-0500Heart rate 97 /minKatelyn Recio MD Work Phone: [facility]02-03-2025 07:57-9036JiU3% (BldA) [Mass fraction]97 %Katelyn Recio MD Work Phone: [facility]02-03-2025 07:57-0500Systolic blood eztjuevo960 mm[Hg]Katelyn Recio MD Work Phone: [facility]01-02-2025 11:26-0500Body jgiqhp628.[address]01-02-2025 11:26-0500Body mass index (BMI) [Ratio]41.38 kg/m2Pmh [address] [place], [place] 9583801-02-2025 11:26-0500Body qhnekl23.[address] [place], [place] 9583812-03-2024 20:01-0500Body muklel468.[address]12-03-2024 20:01-0500Body mass index (BMI) [Ratio] 44.97 kg/m2Pmh [address] [place], [place] 5762512-03-2024 20:01-0500Body .96 kg Pmh [address] [place], [place] 5762512-03-2024 11:33-0500Body hyqvak004.9 cmDiaz Dalton MD Work Phone: [facility] CenterPqqhmqlzlp22-32-8421 11:33-0500Body mass index (BMI) [Ratio]42.89 kg/m2Diaz Dalton MD Work Phone: [facility] CenterPmotvbzagp87-77-5780 11:33-0500Body temperature 97.11 [degF]Diaz Dalton MD Work Phone: [facility] CenterFytpbxvbix50-43-9534 11:33-0500Body yogxlw122.97 kgDiaz Dalton MD Work Phone: [facility] CenterOdyyclyeyx66-73-0948 11:33-0500Diastolic blood gchinpvw25 mm[Hg]Diaz Dalton MD Work Phone: [facility] CenterFdkedlyntw68-35-9185 11:33-0500Heart izzj925 /min Diaz Dalton MD Work Phone: [facility] CenterRditvebres79-01-1117 11:33-0500Respiratory rate22 /minDiaz Dalton MD Work Phone: [facility] CenterOveovdqykb78-56-5436 11:33-2199IaC0% (BldA) [Mass fraction]98 %Diaz Dalton MD Work Phone: [facility] CenterVqbcaptirm95-44-6908 11:33-0500Systolic blood rqvksdar379 mm[Hg]Diaz Dalton MD Work Phone: [facility] CenterLkbihijkcg02-09-8448 11:06-0500Body bwradt564.9 Praneeth See MD Work Phone: [phone])[address]11-14-2024 11:06-0500Body mass index (BMI) [Ratio]44.18 kg/m7KjcuruHair See MD Work Phone: 1(500)574-[address] [place], [place] [address]160111-14-2024 11:06-0500Body qtrwqi105.05 kgHair See MD Work Phone: 1(826)[address]11-14-2024 11:06-0500Diastolic blood bwxyoipm63 mm[Hg]Hair See MD Work Phone: 1(513)982-[address] [place], [place] 8160111-14-2024 11:06-0500Heart rate 90 /minHair See MD Work Phone: 1(002)178-[address] [place], [place] 8160111-14-2024 11:06-6438JsH1% (BldA) [Mass fraction]99 %Hair See MD Work Phone: 1(607)622-[address] [place], [place] [address]0111-14-2024 11:06-0500Systolic blood pyfgvkkw742 mm[Hg]Hair See MD Work Phone: [facility]10-31-2024 09:10-0400Diastolic blood mm[Hg][facility]10-31-2024 09:10-0400 Heart rate90 /[facility]10-31-2024 09:10-0400Systolic blood oihncvdh528 mm[Hg][facility]10-10-2024 12:59-0400 Body kyaruf677.9 cmScharles Arrieta DO Work Phone: [facility]10-10-2024 12:59-0400Body mass index (BMI) [Ratio]43.42 kg/o2DrcfcbLindsay Arrieta DO Work Phone: [facility]10-10-2024 12:59-0400Body rfqyze819.24 kgLindsay Arrieta DO Work Phone: [facility]10-10-2024 12:59-0400Diastolic blood spgpepqd29 mm[Hg]Lindsay Arrieta DO Work Phone: [facility]10-10-2024 12:59-0400Heart rate 93 /minScharles Arrieta DO Work Phone: [facility]10-10-2024 12:59-5848TeE9% (BldA) [Mass fraction]100 %Lindsay Arrieta DO Work Phone: [facility] Medical CenterComment on above:Arrived on 3Lnc of W680-70-7392 12:59-0400Systolic blood ahquibvz507 mm[Hg]Lindsay Arrieta DO Work Phone: [facility]09-26-2024 14:16-0400Body ucemzk365.9 cmGary Miller DO Work Phone: [facility] CenterFfypllsipd10-75-8528 14:16-0400Body mass index (BMI) [Ratio]41.38 kg/v8Syfwg Paul DO Work Phone: [facility] CenterOseifrzdfg66-30-5467 14:16-0400Body pixruq33.34 kgGary Miller DO Work Phone: [facility] CenterJuvwpenxiu34-09-7092 09:57-0400Body jmijyw772.9 cmDiza Dalton MD Work Phone: [facility] CenterDdoxvhiyxz06-47-9525 09:57-0400Body mass index (BMI) [Ratio]41.38 kg/m2Diaz Dalton MD Work Phone: [facility] CenterPlijozpzvw11-79-4814 09:57-0400Body temperature 97.5 [degF]Diaz Dalton MD Work Phone: [facility] CenterQhwtafkgja49-50-1926 09:57-0400Body raqska14.34 kgDiaz Dalton MD Work Phone: [facility] CenterClpdavlyoo39-74-3151 09:57-0400Diastolic blood cdqkkrea75 mm[Hg]Diaz Dalton MD Work Phone: [facility] CenterJciamcbdsw74-27-1657 09:57-0400Heart rate90 /min Diaz Dalton MD Work Phone: [facility] CenterAljyghxypa22-13-1228 09:57-0400Respiratory rate20 /minDiaz Dalton MD Work Phone: [facility] CenterPsrseptfyx14-64-7512 09:57-2576PhL9% (BldA) [Mass fraction]99 %Diaz Dalton MD Work Phone: [facility] CenterUttltanohn99-05-3881 09:57-0400Systolic blood nbbrcelc608 mm[Hg]Diaz Dalton MD Work Phone: [facility] CenterYgrjdeemno92-82-2760 14:07-0400Body oijlsq550.9 cmDiaz Dalton MD Work Phone: [facility] CenterNhcjqixrbe06-33-2269 14:07-0400Body mass index (BMI) [Ratio]42.32 kg/m2Diaz Dalton MD Work Phone: [facility] CenterOuerbyftjv14-79-3213 14:07-0400Body temperature 97.3 [degF]Diaz Dalton MD Work Phone: [facility] CenterUzdtbepmvq67-62-7032 14:07-0400Body .61 kgDiaz Dalton MD Work Phone: [facility] CenterFgcdxmxxcu29-17-5695 14:07-0400Diastolic blood gaxmgmsz19 mm[Hg]Diaz Dalton MD Work Phone: [facility] CenterEnannimbfq62-04-9875 14:07-0400Heart vmla399 /min Diaz Dalton MD Work Phone: [facility] CenterYrspwuxkil83-52-7013 14:07-0400Respiratory rate20 /minDiaz Dalton MD Work Phone: [facility] CenterKvsfrbaghv22-35-8938 14:07-3597GlJ9% (BldA) [Mass fraction]98 %Diaz Dalton MD Work Phone: [facility] CenterRngxzijzvz63-40-1799 14:07-0400Systolic blood xjvfheev738 mm[Hg]Diaz Dalton MD Work Phone: [facility] CenterBllxdvsget60-67-0205 13:42-0400Body mass index (BMI) [Ratio]42.7 kg/w0Wfotr Demar DO Work Phone: [facility] CenterFabnsufose24-88-5278 13:42-0400Body bleczr103.51 kgCorey Demar DO Work Phone: [place] [address]Evtibagkkp37-48-9090 13:42-0400Diastolic blood xovxnchw87 mm[Hg]Feliz Demar DO Work Phone: [place] [address]Xubfsoqaxe95-65-3923 13:42-0400Systolic blood mm[Hg]Feliz Demar DO Work Phone: [facility] CenterLruzcwxfxo97-91-2914 10:51-0400Body oxwdeb919.9 Jacky Germain MD Work Phone: [phone]08-06-2024 10:51-0400Body mass index (BMI) [Ratio]43.58 kg/x4BxezsSmitha Germain MD Work Phone: [phone]08-06-2024 10:51-0400Body .55 kgSmitha Germain MD Work Phone: [phone]08-06-2024 10:51-0400Diastolic blood hhywsgae76 mm[Hg]Smitha Germain MD Work Phone: [phone]08-06-2024 10:51-0400Heart rate 90 /minSmitha Germain MD Work Phone: [phone]08-06-2024 10:51-0176TkA8% (BldA) [Mass fraction]100 %Smitha Germain MD Work Phone: [phone] Medical CenterComment on above:Arrived on [address] [place], [place] [address]G585-87-3999 10:51-0400Systolic blood horornkt675 mm[Hg]Smitha Germain MD Work Phone: [phone]06-06-2024 08:58-0400Body wnfpho641.9 cmScharles Arrieta DO Work Phone: 1(065)784-[address] [place], [place] 4530706-06-2024 08:58-0400Body mass index (BMI) [Ratio]44.11 kg/y3Obljdrsade Arrieta DO Work Phone: 1(177)677-[address] [place], [place] 4530706-06-2024 08:58-0400Body izzijx154.82 kgLindsay Arrieta DO Work Phone: 1(913)014-[address] [place], [place] 4530706-06-2024 08:58-0400Diastolic blood bywzofov67 mm[Hg]Lindsay Meenakshi DO Work Phone: 1(662)561-[address] [place], [place] 4530706-06-2024 08:58-0400Heart rate 80 /minScharles Arrieta DO Work Phone: [phone]06-06-2024 08:58-9677EpK6% (BldA) [Mass fraction]98 %Lindsay Arrieta DO Work Phone: [facility]06-06-2024 08:58-0400Systolic blood okoldsfd648 mm[Hg]Lindsay Arrieta DO Work Phone: [facility]04-20-2024 11:37-0400Diastolic blood twtpvazf88 mm[Hg]Ezequiel Graff MD Work Phone: [facility]04-20-2024 11:37-0400Heart rate 81 /minEzequiel Graff MD Work Phone: [phone]04-20-2024 11:37-0400 Respiratory rate16 /minEzequiel Graff MD Work Phone: [facility]04-20-2024 11:37-6695HxK7% (BldA) [Mass fraction]97 %Ezequiel Graff MD Work Phone: [facility]04-20-2024 11:37-0400Systolic blood hzovsygl025 mm[Hg]Ezequiel Graff MD Work Phone: [phone]04-20-2024 07:00-0400Body jjrzuupvcsd93.9 [degF]Ezequiel Graff MD Work Phone: [facility]04-20-2024 05:05-0400Body mass index (BMI) [Ratio]42.65 kg/s8XkksunwEzequiel Graff MD Work Phone: [phone]04-20-2024 05:05-0400Body ohkfva366.33 kgEzequiel Graff MD Work Phone: [phone]04-17-2024 21:17-0400Body jxvify998.9 cmEzequiel Graff MD Work Phone: [facility]03-13-2024 09:05-0400Body .[address] [place], [place] 5540303-13-2024 09:05-0400Body mass index (BMI) [Ratio]41.38 kg/e6Byjxe[address]03-13-2024 09:05-0400Body fbjupl64.[address]03-08-2024 11:07-0500Body height 154.9 cmLibby Finley MD Work Phone: [phone]03-08-2024 11:07-0500Body mass index (BMI) [Ratio]43.27 kg/a3RtiigoonLibby Finley MD Work Phone: [phone]03-08-2024 11:07-0500Body ebioqu726.87 kgLibby Finley MD Work Phone: [phone]03-08-2024 11:07-0500Diastolic blood bkmbweqj72 mm[Hg]Libby Finley MD Work Phone: [phone]03-08-2024 11:07-0500Heart rate 100 /minMomel Finley MD Work Phone: [phone]03-08-2024 11:07-0500Systolic blood gahubhfq378 mm[Hg]Libby Finley MD Work Phone: [phone]03-07-2024 08:55-0500Body mass index (BMI) [Ratio]43.27 kg/k9FyottrzRyan Mcneal MD Work Phone: [facility]03-07-2024 08:55-0500Body sdlolfnaqfe76.3 [degF]Ryan Mcneal MD Work Phone: 1(869)676-[address] [place], [place] 7406603-07-2024 08:55-0500Body .87 kgRyan Mcneal MD Work Phone: 1(366)544-[address] [place], [place] 7406603-07-2024 08:55-0500Diastolic blood joatczlx75 mm[Hg]Ryan Mcneal MD Work Phone: 1(107)938-[address] [place], [place] 7406603-07-2024 08:55-0500Heart rate 103 /minRyan Mcneal MD Work Phone: [phone]03-07-2024 08:55-0500 Respiratory rate18 /minRyan Mcneal MD Work Phone: [phone]03-07-2024 08:55-2487IrG9% (BldA) [Mass fraction]95 %Ryan Mcneal MD Work Phone: [phone]03-07-2024 08:55-0500Systolic blood canyheeo349 mm[Hg]Ryan Mcneal MD Work Phone: [facility]01-30-2022 11:29-0500Body tziijrgjidl41.5 [degF]Jamal Levine MD Work Phone: 1(241)[address] [place], [place] 0157001-30-2022 11:29-0500Diastolic blood eriqxirv28 mm[Hg]Jamal Levine MD Work Phone: 1(773)[address] [place], [place] 0404701-30-2022 11:29-0500Heart rate85 /min Jamal Levine MD Work Phone: 1(679)[facility] [place], [place] 0157001-30-2022 11:29-0500Respiratory rate16 /minJamal Levine MD Work Phone: 1(816)[facility] [place], [place] 0[address]001-30-2022 11:29-8466QxT1% (BldA) [Mass fraction]97 %Jamal Levine MD Work Phone: 1(893)[facility] [place], [place] 0157001-30-2022 11:29-0500Systolic blood zsnjtooq863 mm[Hg]Jamal Levine MD Work Phone: 1(558)[address] [place], [place] 0404701-26-2022 06:00-0500Body mass index (BMI) [Ratio]43.59 kg/w8CfgrzJamal Levine MD Work Phone: 1(366)[facility] [place], [place] 0157001-26-2022 06:00-0500Body .24 kg Jamal Levine MD Work Phone: 1(820)[address] [place], [place] [address]404701-25-2022 09:30-0500Body ostguy551.4 cm Jamal Levine MD Work Phone: [facility] Encounters Encounter DateEncounter TypeCare ProviderFacilityStart: 07-07-2025 End: 70-74-5781Cudcey outpatient visit 15 minutesAdriane Woods MERCHANDISING COORDINATOR-DRAGLINE MECHANIC Work Phone: [facility] CardiologyComment on above:Pure hypercholesterolemia (Primary Dx); Chronic heart failure with preserved ejection fraction (CMS-HCC)Start: 07-07-2025 End: 31-90-1932grtokaujkoOFYEN ARROYO GRAN[facility] COMMUN[facility] HOSPITALIPrHCA Houston Healthcare Tomballtart: 07-04-2025 End: 60-85-9980Gkhnwmmev encounterBethanie Steele Physicians CardiologyStart: 06-12-2025 End: 50-45-3026Hnvixfcxv to same day surgery centerRandall Soria MD-[facility] CenterStart: 06-12-2025 End: 60-43-8989lrrlhgilgvItyq Naderer MD Work Phone: [facility] Work Phone: Start: 06-09-2025 End: 58-78-1428Xyqqxrwcp encounterPayadiel Patel Physicians CardiologyComment on above:Surgical Or Dental ClearanceStart: 06-05-2025 End: 39-90-7744Occlbdnkl Result EncounterMattyuridia KAPLAN Work Phone: noms External Department UnsolicitedStart: 06-05-2025 End: 76-56-2469Wplpcwwfc Result EncounterMattyuridia KAPLAN Work Phone: noms External Department UnsolicitedStart: 06-05-2025 End: 09-53-3596gjlbtdrysxVhqk Naderer MD Work Phone: [facility] Work Phone: Start: 06-05-2025 End: 62-03-9068Mdlrtbv encounter Talita Dalton MD-[facility] Work Phone: Start: 06-03-2025 End: 91-39-8010Wbvazl flowsheetShama KAPLAN Work Phone: [facility]opaedicsStart: 06-03-2025 End: 16-98-4932Ftytga flowsheetShama KAPLAN Work Phone: noms [facility]opaedicsStart: 06-03-2025 End: 48-59-4201Bxvsedl encounter procedureMajuancarlos KAPLAN Work Phone: NOTH [facility] OrthopaedicsComment on above:Pre-op examination (Primary Dx)Start: 06-03-2025 End: 40-68-7359Rcbntltquzjbb examination doneMajuancarlos KAPLAN Work Phone: [facility] Work Phone: Start: 06-03-2025 End: 10-22-2337enlsnyrmooJBUEYJI J MEYERNot AvailableStart: 05-29-2025 End: 50-29-9485Ypwlzmfrp encounterJr. Harinder Jackson DO Work Phone: noms Chris OrthopaedicsComment on above:? surgery Start: 05-26-2025 End: 59-12-7979Gmcczd outpatient visit 15 minutesCorey Demar DO Work Phone: noms [facility] OBGYNComment on above:Pre-op examination; Pelvic pain; Genital warts; Pain of ovaryStart: 05-26-2025 End: 83-61-4308Olagbrxetrfmx examination doneCorey Demar DO Work Phone: noms HealthcareStart: 05-26-2025 End: 40-75-4869mnuccgkupiFORRN FAZIONot AvailableStart: 05-15-2025 End: 42-84-0547Wpdlpqvqo to same day surgery centerRandall Soria MD-Sur[facility] Center [facility] CenterStart: 05-15-2025 End: 54-38-5006fzklupodjlQvvv Naderer MD Work Phone: [facility] Work Phone: Start: 05-14-2025 End: 48-77-1689Zrveipipa Ritesh Rod Physicians Pulmonary/Sleep MedicineStart: 05-14-2025 End: 80-32-7735Lkailn outpatient visit 15 minutesStwarren state hospitalniurka Madrigal MERCHANDISING COORDINATOR-DRAGLINE MECHANIC Work Phone: [facility] Pulmonary/Sleep MedicineComment on above:Obstructive sleep apnea syndrome (Primary Dx); Dyspnea on exertion; Moderate persistent asthma without complication; Chronic hypoxic respiratory failure ([facility]-HCC); BMI 40.0-44.9, adult ([facility]); Obesity, morbid, BMI 40.0-49.9 ([facility])Start: 05-14-2025 End: 66-13-1894diibzbxouqUHOLBPMerit Health Rankin Ambulatory PPGStart: 05-07-2025 End: 15-90-4452Dcfrxj-up encounterShania Lopez MD Work Phone: [facility] Phys[facility] Pulmonary/Sleep MedicineComment on above:Home O2 evaluationStart: 88-86-1512sfhaouloyzIKDRTrumbull Regional Medical Centertart: 05-02-2025 End: 93-55-2575AsbvuyNsmw Naderer MD Work Phone: noms CW FMComment on above:Type 2 diabetes mellitus with hyperglycemia, with long-term current use of insulin ([facility])Start: 05-01-2025 End: 08-05-4001Lguwjmch Edgardo Soria MD-Pre-Surgical Testing Work Phone: Start: 05-01-2025 End: 59-21-4143Isfwghv encounter Kimberley Soria MD-Pre-Surgical Testing Work Phone: Start: 05-01-2025 End: 42-54-5621Kreumr OnlySilvia Rod Physicians Pulmonary/Sleep MedicineComment on above:Hypoxia (Primary Dx); Dyspnea on exertionStart: 04-24-2025 End: 40-32-6891Twyzvlfkn Result EncounterDiaz Dalton MD Work Phone: noms External Department UnsolicitedStart: 04-24-2025 End: 07-30-8836Eufbrqoxg Result EncounterDiaz Dalton MD Work Phone: n[facility] External Department UnsolicitedStart: 04-23-2025 End: 23-74-6231Dbydducop encounterJr. Harinder Shane Jackson DO Work Phone: noms [facility]opaedicsComment on above:Medial aspect of her eye and noseStart: 04-22-2025 End: 72-35-1901Yuvpyl flowsheetJr. Harinder Shane Jackson DO Work Phone: n[facility]opaedicsStart: 04-22-2025 End: 53-13-5347Bgihkf flowsheetJr. Harinder Lynn Manuel DO Work Phone: noms [facility]opaedicsStart: 04-22-2025 End: 64-53-0404Zdcpsk outpatient visit 25 minutesJr. Harinder Jackson DO Work Phone: noms [facility] OrthopaedicsComment on above:Acute pain of left knee (Primary Dx); Acute medial meniscus tear of left knee, initial encounterStart: 04-22-2025 End: 69-30-9700ectbhwmmhcUN., HARINDER GARZAKRYSTYNANot AvailableStart: 04-14-2025 End: 33-30-1497Jhodqe flowsheetCorey Demar DO Work Phone: NOMS [facility] OBGYNStart: 04-14-2025 End: 06-65-2809Kttisz flowsheetCorey Demar DO Work Phone: N[facility] OBGYNStart: 04-14-2025 End: 27-49-8267Qsugcd outpatient visit 15 minutesCorey Demar DO Work Phone: NODI [facility] OBGYNComment on above:Pelvic pain in female (Primary Dx); Nausea; Genital wartsStart: 04-14-2025 End: 38-28-5158erhofgxdegFXAYU FAZIONot AvailableStart: 04-10-2025 End: 52-85-6537vzkfpzwelqLqfiwlvq Brink PTANOMS Zhen Physical TherapyComment on above:Acute pain of left knee (Primary Dx)Start: 04-10-2025 End: 02-06-6606Latjrp flowsheetMarshall Brink PTANOMS [facility] Start: 04-10-2025 End: 21-58-1283Bxomba flowsheetMarshsage Kelly PTANOMS [facility] Start: 04-07-2025 End: 40-91-1286Fsdhpaqcc encounterKenbenignobrock Herzog PTANOMS [facility]hen Physical TherapyComment on above:Cx PT 04/07/25Start: 04-02-2025 End: 82-89-3236Wkjmgc flowsheetMarshsage Kelly PTANOMS [facility] Start: 04-02-2025 End: 50-58-5745Smlrou flowsheetMarshsage Kelly PTANOMS [facility] Start: 04-02-2025 End: 63-86-6860hniuyrpowpAdxhlhan Brink PTANOMS Zhen Physical TherapyComment on above:Acute pain of left knee (Primary Dx)Start: 03-28-2025 End: 60-29-7978Lwobhwbyy encounterNoébrock Herzog PTANOMS CI PTComment on above:re: PT so farStart: 03-27-2025 End: 52-80-7179Lbocznmvi encounterShama KAPLAN Work Phone: NOXE [facility] OrthopaedicsComment on above:called and said that therapy is making her pain worseStart: 03-26-2025 End: 25-80-4597Jqpnly Omarbenignobrock Herzog PTANOMS CI PTStart: 03-26-2025 End: 86-38-9393Ufyvqv Omarbenignobrock Herzog PTANOMS CI PTStart: 03-26-2025 End: 91-18-1181xqgivwngfvUovxpow Lawrence PTANOMS CI PTComment on above:Acute pain of left knee (Primary Dx)Start: 03-24-2025 End: 97-36-3045HxzmljZpfwxqjade Rod Physicians Pulmonary/Sleep MedicineStart: 03-21-2025 End: 41-20-8577Wkzjmx flowsheetSammantha Valadez PTNOMS CI PTStart: 03-21-2025 End: 63-81-8761Qpezmw flowsheetSammantha Valadez PTNOMS CI PTStart: 03-21-2025 End: 03-47-8987jodtvquozbYkzhquqsd Valadez PTNOMS CI PTComment on above:Acute pain of left knee (Primary Dx)Start: 03-17-2025 End: 71-54-8844Mqcrjck encounter procedureCorey Demar DO Work Phone: noms BCP OBComment on above:Genital wartsStart: 03-17-2025 End: 40-69-5726ktfltulsyoTSHZC FAZIONot AvailableStart: 03-14-2025 End: 78-87-7471Xrtrwd flowsheetJr. Harinder Jackson DO Work Phone: NOMS ORTHOStart: 03-14-2025 End: 23-73-3337Xyvxjb flowsheetJr. Harinder Jackson DO Work Phone: NOMS ORTHOStart: 03-14-2025 End: 24-10-1286Cuszsf outpatient visit 15 minutesJr. Harinder Jackson DO Work Phone: noms PCF ORTHOComment on above:Acute medial meniscus tear of left knee, initial encounter (Primary Dx); Acute pain of left kneeStart: 03-14-2025 End: 16-94-2581mcsnbfbzcuGK., HARINDER Holliday AvailableStart: 03-13-2025 End: 99-05-2773Quqlotyqq encounterSjade Rod Physicians Pulmonary/Sleep MedicineStart: 03-13-2025 End: 23-62-5049Wziafi outpatient visit 25 minutesLindsay Arrieta DO Work Phone: [facility] Pulmonary/Sleep MedicineComment on above:Moderate persistent asthma without complication (Primary Dx); Chronic hypoxic respiratory failure (CMS-HCC)Start: 03-13-2025 End: 53-00-7217zvzpfxzuprXJLLTQ M [facility] Ambulatory PPGStart: 03-11-2025 End: 12-00-1927Vralsbhqq encounterProjackson medical center Pharm[facility] Medication Management Work Phone: [phone] - Pharmacy Medication ManagementStart: 03-05-2025 End: 27-73-2088Fxlwkntwl encounterJorge L LEGERroMedjose Physicians CardiologyComment on above:PPMM referralStart: 03-04-2025 End: 92-37-8216Ysurupfey Result EncounterMajuancarlos KAPLAN Work Phone: noms External Department UnsolicitedStart: 03-04-2025 End: 26-80-2522Ubioubxmu Result EncounterMajuancarlos KAPLAN Work Phone: noms External Department UnsolicitedStart: 02-27-2025 End: 91-17-6437Xhjxkqhxa encounterMajuancarlos KAPLAN Work Phone: noms FB ORTHOPAEDICSComment on above:in painStart: 02-25-2025 End: 85-39-3137Bdcihw outpatient visit 15 minutesMajuancarlos KAPLAN Work Phone: noms FB ORTHOPAEDICSComment on above:Internal derangement of left knee (Primary Dx); Acute pain of left kneeStart: 02-25-2025 End: 15-42-6812Sxagsw flowsheetShama KAPLAN Work Phone: noms FB ORTHOPAEDICSStart: 02-25-2025 End: 40-25-3592Rxbfpe flowsYuridia KAPLAN Work Phone: noms FB ORTHOPAEDICSStart: 02-25-2025 End: 96-05-5528Eyjphjwot encounterSjade ArandaoMedjose Physicians Pulmonary/Sleep MedicineStart: 02-25-2025 End: 81-92-6013ndfnzhwnssTZUTPJF J MEYERNot AvailableStart: 02-17-2025 End: 80-75-1450Seoapjxzm encounterSjade VEGAAProMedica Physicians Pulmonary/Sleep MedicineStart: 02-10-2025 End: 26-22-0713Ucrgbjzane Dalton MD Work Phone: noms CWM FMStart: 02-10-2025 End: 03-92-7047Ptdojqshun Dalton MD Work Phone: noms CWM FMStart: 02-10-2025 End: 31-91-6977qxkrzxlidaERGR NADERERNot AvailableStart: 02-10-2025 End: 89-77-1900Nmqklb outpatient visit 25 minutesDiaz Dalton MD Work [...] Primary osteoarthritis of both kneesStart: 02-03-2025 End: 44-57-0647jzthtajxjmRQGBWU M [facility] Daytontart: 01-03-2025 End: 02-82-0598Ocnopq outpatient visit 15 minutesKatelyn Recio MD Work Phone: [facility] CardiologyComment on above: Chronic heart failure with preserved ejection fraction (CMS-HCC) (Primary Dx); Primary hypertension; Dyspnea on exertion; Hyperlipidemia associated with type 2 diabetes mellitus (CMS-HCC)Start: 01-03-2025 End: 14-37-6564nmssgphjmqFWAADApolinar RECIOSamaritan North Health Centertart: 01-02-2025 End: 76-17-6601Trtdxmnih encounterBethanie Nolascohner [facility]ENTERPro[facility]icians CardiologyStart: 12-09-2024 End: 33-44-2303Agbwxmohg encounterSjade Otero RMAProMedica Physicians Pulmonary/Sleep MedicineStart: 12-04-2024 End: 78-04-2650Ugmbul outpatient visit 25 minutesPacheco Guerra Kaitlin MERCHANDISING COORDINATOR-DRAGLINE MECHANIC Work Phone: [facility] Pulmonary/Sleep MedicineComment on above:Obstructive sleep apnea syndrome (Primary Dx); Noncompliance with CPAP treatment; Chronic hypoxic respiratory failure, on home oxygen therapy ([facility] Obesity, Class III, BMI 40-49.9 (morbid obesity) ([facility]Start: 12-04-2024 End: 68-36-7760bwqgvhugwvXWWKRE Charlie QUIÑONESNorwalk [facility] Hospital Amb[facility] PPGStart: 11-07-2024 End: 87-67-5865Qvfypr Froy Dalton MD Work Phone: [facility] FMStart: 11-07-2024 End: 60-22-7305Tehehwzane Dalton MD Work Phone: [facility] FMStart: 11-07-2024 End: 30-42-5563Hdizhg outpatient visit 25 minutesDiaz Dalton MD Work Phone: [facility] FMComment on above:Type 2 diabetes mellitus with hyperglycemia, with long-term current use of insulin ([facility] [facility]) (Primary Dx); Chronic heart failure with preserved ejection fraction (HFpEF) ([facility]); Mild episode of recurrent major depressive disorder (HCC) ([facility]); JOHN (generalized anxiety disorder) ([facility]); Gastroesophageal reflux disease without esophagitis; Class 3 severe obesity due to excess calories with serious comorbidity and body mass index (BMI) of40.0 to 44.9 in adult ([facility])Start: 11-07-2024 End: 16-23-9383udmpswnzztPZMV NADERERNot AvailableStart: 11-01-2024 End: 15-01-7876Prwsbqco Result EncounterDiaz Datlon MD Work Phone: NOMS External Department UnsolicitedStart: 11-01-2024 End: 05-35-1103Dxovyvyp Result EncounterDiaz Dalton MD Work Phone: noms External Department UnsolicitedStart: 11-01-2024 End: 20-97-8741gzubiogjheAXYDAvita Health System Bucyrus Hospitaltart: 10-28-2024 End: 99-22-5740Yklgli outpatient visit 25 minutesDiaz Dalton MD Work Phone: noms CWM FMComment on above:Dehydration (Primary Dx); Nausea and vomiting, unspecified vomiting type; Type 2 diabetes mellitus with hyperglycemia, with long-term current use of insulin ([facility]); Class 3 severe obesity due to excess calories with serious comorbidity and body mass index (BMI) of40.0 to 44.9 in adult ([facility]); Chronic hypoxic respiratory failure ([facility]); Chronic heart failure with preserved ejection fraction (HFpEF) ([facility])Start: 10-28-2024 End: 93-00-6727Ohycsv Froy Dalton MD Work Phone: noms CWM FMStart: 10-28-2024 End: 72-55-8982Yhcjjl Froy Dalton MD Work Phone: noms CWM FMStart: 10-28-2024 End: 12-44-2250clmxybcsetGLRC NADERERNot AvailableStart: 10-27-2024 End: 03-50-5228Tkazdoswo department patient visitAvita Health System Bucyrus Hospitaltart: 10-09-2024 End: 86-33-1068Rkvlxg flowsheetAnthony S Rusher DPM Work Phone: noms PODIATRYStart: 10-09-2024 End: 91-94-4263Wiytdv flowsheetAnthony S Rusher DPM Work Phone: noms PODIATRYStart: 10-09-2024 End: 39-67-1775vvpnsheeekBLCNFUO S RUSHERNot AvailableStart: 10-09-2024 End: 80-55-6956Jblxmy outpatient visit 25 minutesCarmen Bowman DPM Work Phone: noms PODIATRYComment on above:Diabetic polyneuropathy associated with type 2 diabetes mellitus ([facility]/HCC) (Primary Dx); NeuritisStart: 10-07-2024 End: 63-99-5601Anuzem outpatient visit 25 minutesKatelyn Recio MD Work Phone: [facility] Physicians CardiologyComment on above: Dyspnea on exertion (Primary Dx); Chronic heart failure with preserved ejection fraction ([facility]); Type 2 diabetes mellitus with hyperglycemia, with long-term current use of insulin ([facility])Start: 10-07-2024 End: 48-23-7406doliolqszrXGOYC L DEBENEDETTISamaritan North Health Centertart: 10-04-2024 End: 33-10-7858Muotbqujp encounterSue Chow [facility] Physicians Cardiology Start: 09-25-2024 End: 37-69-0354DjhmunXchx Naderer MD Work Phone: noms CWM FMComment on above:Type 2 diabetes mellitus with hyperglycemia, with long-term current use of insulin ([facility])Start: 09-23-2024 End: 99-45-7718OsgczgNukb Naderer MD Work Phone: noms CWM FMComment on above:Type 2 diabetes mellitus with microalbuminuria, with long-term current use of insulin ([facility])Start: 09-19-2024 End: 21-36-5056KejjzcKjfu Naderer MD Work Phone: noms CWM FMComment on above:Type 2 diabetes mellitus with microalbuminuria, with long-term current use of insulin ([facility])Start: 09-17-2024 End: 17-61-9028Otgjwluyc encounterAllyson Briscoe [facility] Physicians General SurgeryStart: 09-12-2024 End: 88-16-8455Socgpldkhj and management of inpatientBUXTON E ILLISProMedica St. Rose Hospitaltart: 09-05-2024 End: 46-40-7398bhkkbmuwjyZvy Pat Phone Call Provider [address] [place] [address] AdmitStart: 09-05-2024 End: 27-27-5939phelkwkqpgZYTV TAISHABlanchard Valley [facility] Hospitaltart: 08-21-2024 End: 77-84-8887XzviskZsji Naderer MD Work Phone: noms CWM FMComment on above:Mild episode of recurrent major depressive disorder (HCC) (CMS/HCC)Start: 08-15-2024 End: 09-81-3069Wkfyex Vickie Dalton MD Work Phone: NOPR CWM FMComment on above:Carpal tunnel syndrome of left wristStart: 08-06-2024 End: 51-34-8047Skqnsq Froy Dalton MD Work Phone: NOPV CWM FMStart: 08-06-2024 End: 23-96-7754Jrmrhh Froy Dalton MD Work Phone: NOHF CWM FMStart: 08-06-2024 End: 97-26-7324Hlzxeqrzb Result EncounterGeneric External Data ProviderNOMS External Department UnsolicitedStart: 08-06-2024 End: 40-73-9622Vtovkkm encounter procedureCorey Demar DO Work Phone: [facility] Work Phone: Start: 08-06-2024 End: 65-49-9259Yfcloqxz preventive med est patient 40-64yrsCorey Demar DO Work Phone: NOSN BCP OBComment on above:Well woman exam with routine gynecological examStart: 08-06-2024 End: 77-02-2588Wygylp outpatient visit 25 minutesDiaz Dalton MD Work Phone: NOMS CWM FMComment on above:Chronic hypoxic respiratory failure (CMS/HCC) (Primary Dx); Chronic heart failure with preserved ejection fraction (HFpEF) (CMS/HCC); Type 2 diabetes mellitus with hyperglycemia, with long-term current use of insulin (CMS/HCC); Pulmonary hypertension ([facility]); Colon cancer screening; Gastroesophageal reflux disease without esophagitisStart: 08-06-2024 End: 65-09-4626Adbkqtsz SupportSmitha Germain MD Work Phone: [facility] Comment on above:JOSE M (obstructive sleep apnea); Chronic hypoxic respiratory failure ([facility]); Severe obesity (BMI >= 40) ([facility])Start: 08-05-2024 End: 65-36-1923JfzbvmAqvj Naderer MD Work Phone: noms CWM FMComment on above:Type 2 diabetes mellitus with hyperglycemia, with long-term current use of insulin ([facility])Start: 07-30-2024 End: 88-30-8526Kplmigyom encounterShakira Gayle [facility] Call Center Comment on above:Abnormal LabCRITICAL LABStart: 07-30-2024 End: 04-47-0023kjlbqescwlLncpgdcw Bialecki MERCHANDISING COORDINATOR-DRAGLINE MECHANIC Work Phone: [facility] [employer] Car Repairman Sign InStart: 07-29-2024 End: 12-43-6454SghvcoHmht Naderer MD Work Phone: noms CWM FMComment on above:Type 2 diabetes mellitus with hyperglycemia, with long-term current use of insulin ([facility])Start: 07-21-2024 End: 91-82-3138lerkuxfvxcWTDM NADERERProMedPutnam County Memorial Hospital HospitalStart: 07-18-2024 End: 40-21-5304Nspsdn outpatient visit 25 minutesHair See MD Work Phone: [facility] Physicians CardiologyComment on above: Dyspnea on exertion (Primary Dx); Pulmonary hypertension ([facility])Start: 07-18-2024 End: 02-65-1990clvpaurchyIAHXNQ E OOSTRAProMedica Elba HospitalStart: 07-17-2024 End: 93-32-2641Ffgokkmfj encounterBethanie Patricia CMACincinnati Children's Hospital [facility] Center Physicians CardiologyStart: 07-15-2024 End: 20-39-4384Hfhwnt flowsElmira Snowden PLUCK TRIMMER Work Phone: NOJW FB ORTHOPAEDICSStart: 07-15-2024 End: 04-15-8503Xbqcxf flowsElmira Snowden PLUCK TRIMMER Work Phone: NOHB FB ORTHOPAEDICSStart: 07-15-2024 End: 54-00-0636Adtjzz follow up visit related to original Mac Snowden PLUCK TRIMMER Work Phone: NOWW FB ORTHOPAEDICSComment on above:Status post carpal tunnel release (Primary Dx)Start: 07-15-2024 End: 26-46-8933shgyqlezlyNGFJD T OLSENNot AvailableStart: 07-10-2024 End: 42-50-8451Hbivoh Vickie Dalton MD Work Phone: NOTI CWM FMComment on above:Anxiety state (CMS/HCC) Start: 07-08-2024 End: 02-46-2727Iebhcs Vickie Dalton MD Work Phone: NOAA CWM FMComment on above:Anxiety state (CMS/HCC) Start: 07-04-2024 End: 21-26-5044Mxcbqajd SupportCenterville Ppc NurseProMedica Physicians Cardiology Comment on above:Pulmonary hypertension (CMS-HCC) (Primary Dx)Start: 07-03-2024 End: 18-52-0363Xvkzoikcs encounterJenntejal Patricia CMAProMedica Physicians CardiologyStart: 06-30-2024 End: 57-72-4050Xljzdbniq Result EncounterCorey Demar DO Work Phone: NORL External Department UnsolicitedStart: 06-30-2024 End: 28-22-9117Gudyjqxmt Result EncounterCorey Demar DO Work Phone: NOOI External Department UnsolicitedStart: 06-26-2024 End: 92-76-8263naroxlwyurOJHJDS HANNAProMedica Longville HospitalStart: 06-24-2024 End: 98-41-3092Wtbyyv Danna Snowden PLUCK TRIMMER Work Phone: NOMS FB ORTHOPAEDICSStart: 06-24-2024 End: 87-29-2241Imuyxj flowsheetBarry Min Michelle PLUCK TRIMMER Work Phone: NOWM FB ORTHOPAEDICSStart: 06-24-2024 End: 61-84-3591Nocgvz follow up visit related to original Mac Min Michelle PLUCK TRIMMER Work Phone: noms FB ORTHOPAEDICSComment on above:Status post carpal tunnel release (Primary Dx)Start: 06-24-2024 End: 05-54-8720cnykmopmdoUPYNS T OLSENNot AvailableStart: 06-20-2024 End: 44-43-2816Bgtiqvepw encounterHalfawn Lovell RNProMedica Physicians Cardiology Comment on above:Cardiac CathStart: 06-19-2024 End: 92-23-4890Aamippmqi encounterBethanie Patricia CMAProMedica Physicians CardiologyStart: 06-18-2024 End: 52-14-8486Acqhhighb encounterGary Miller DO Work Phone: noms FB ORTHOPAEDICSStart: 06-17-2024 End: 08-66-5385polpsxrghgLmnwv Andrew HuddlestonFacility:[facility] HospitalStart: 06-14-2024 End: 10-37-5425JtkkewPhehz T Olsen PLUCK TRIMMER Work Phone: noms FB ORTHOPAEDICSComment on above:Post-operative pain (Primary Dx)Start: 06-13-2024 End: 97-56-8075Jzkdpf outpatient visit [facility] Work Phone: [facility] Pulmonary/Sleep MedicineComment on above:Moderate persistent asthma without complication (Primary Dx); Obstructive sleep apnea syndrome; Pulmonary nodule; Chronic hypoxic respiratory failure ([facility]CC)Start: 06-13-2024 End: 77-21-0440etusykthwgFVQSRAMerrick Medical Center Ambulatory PPGStart: 06-07-2024 End: 26-95-8125Mlcgimkoh encounterDiaz Dalton MD Work Phone: noms CW FMStart: 06-03-2024 End: 60-90-8228Cfiktqzsu encounterGary Miller DO Work Phone: noms CI ORTHOPAEDICSComment on above:medical clearance Start: 05-30-2024 End: 02-31-0174Idyqla outpatient visit 15 minutesGary Miller DO Work Phone: noms FB ORTHOPAEDICSComment on above:Right wrist pain; Carpal tunnel syndrome, rightStart: 05-30-2024 End: 91-59-5731Hrxmuk flowsTona Miller DO Work Phone: noms FB ORTHOPAEDICSStart: 05-30-2024 End: 26-45-4819Oynrti flowsTona Miller DO Work Phone: noms FB ORTHOPAEDICSStart: 05-29-2024 End: 83-79-2588Ahxudt Froy Dalton MD Work Phone: NOXG CWM FMStart: 05-29-2024 End: 12-72-3025Svgcnhshun Dalton MD Work Phone: noms CWM FMStart: 05-29-2024 End: 44-47-0432Oksopz outpatient visit 25 minutesDiaz Dalton MD Work Phone: noms CWM FMComment on above:Acute pain of right knee (Primary Dx); Type 2 diabetes mellitus with microalbuminuria, with long-term current use of insulin ([facility]); Right carpal tunnel syndromeStart: 05-28-2024 End: 66-79-5856Smpkqkxsg encounterSue Chow CMAProMedica Physicians Cardiology Start: 05-27-2024 End: 61-10-3873Pwfxoofxm encounterBethanie Patricia [facility] CENTERProMedica Physicians CardiologyStart: 05-15-2024 End: 23-16-8592QixebnDbqa Naderer MD Work Phone: NOBJ CWM FMComment on above:Type 2 diabetes mellitus with hyperglycemia, with long-term current use of insulin (CMS/HCC) (Primary Dx); Carpal tunnel syndrome of left wrist; Anxiety state ([facility])Start: 05-13-2024 End: 87-59-2901Ycvasg Froy Dalton MD Work Phone: NOMS CWM FMStart: 05-13-2024 End: 86-48-9554Wbiqyg flowsVikas Dalton MD Work Phone: NOMS CWM FMStart: 05-13-2024 End: 50-97-3518Rdqdzp outpatient visit 25 minutesDiaz Dalton MD Work Phone: NOIB CW FMComment on above:Type 2 diabetes mellitus with hyperglycemia, with long-term current use of insulin ([facility]) (Primary Dx); Right carpal tunnel syndrome; Chronic hypoxic respiratory failure ([facility]); Mild episode of recurrent major depressive disorder (HCC) ([facility]); JOHN (generalized anxiety disorder) ([facility]); Generalized edema; Spondylosis without myelopathy; 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 elsewhere ([facility])Start: 05-07-2024 End: 81-68-6644Jlfhqevsz encounterSjade Rod Physicians Pulmonary/Sleep MedicineComment on above:Chronic hypoxic respiratory failure ([facility]) (Primary Dx); SOB (shortness of breath); HypoxiaStart: 04-24-2024 End: 61-48-0121Hzkbmu flowsheetCorey Demar DO Work Phone: NOMS BCP OBStart: 04-24-2024 End: 90-97-4669Acemzr flowsheetCorey Demar DO Work Phone: NOMS BCP OBStart: 04-24-2024 End: 49-92-5423Zsocqf outpatient visit 15 minutesCorey Demar DO Work Phone: NOMS BCP OBComment on above:Encounter to discuss test resultsStart: 04-18-2024 End: 13-20-6272Rkyvlmktx encounterEmkeisha CRUZ FB ORTHOPAEDICSStart: 04-16-2024 End: 31-33-2114djeqatfrvbGbqrjGoyo MillerFacility:[facility] Centertart: 04-15-2024 End: 85-35-4422SlcdzjEspvpAleah Recio MD Work Phone: [facility] Physicians CardiologyComment on above:Med RefillStart: 04-10-2024 End: 32-39-4664Umlfxquph encounterSmitha Germain MD Work Phone: [facility] Comment on above:Sleep Lab (Comp PSG/PAP)Start: 04-09-2024 End: 58-76-9472Kiacpf OnlySilvia Otero RMAProMedica Physicians Pulmonary/Sleep MedicineComment on above:Chronic hypoxic respiratory failure (CMS-HCC) (Primary Dx); SOB (shortness of breath); HypoxiaStart: 04-09-2024 End: 12-31-5634Aphnrq outpatient visit 15 minutesAbmarycruz Germain MD Work Phone: [facility] Physicians Pulmonary/Sleep MedicineComment on above:JOSE M (obstructive sleep apnea) (Primary Dx); Chronic hypoxic respiratory failure (CMS-HCC); Severe obesity (BMI >= 40) (CMS-HCC)Start: 04-03-2024 End: 52-55-6876owrqtkaajlSpjhb Terrance PaulFacility:[facility] Centertart: 04-03-2024 End: 21-39-1352Ipouivfna Result EncounterGeneric External Data ProviderNOMS External Department UnsolicitedStart: 04-03-2024 End: 40-27-3092Bqetjannv Result EncounterGeneric External Data ProviderNOMS External Department UnsolicitedStart: 04-02-2024 End: 25-64-5247Mzgmpmhno Result EncounterGeorgette KAPLAN Work Phone: noms External Department UnsolicitedStart: 04-02-2024 End: 28-77-6268Sxirtjrom Result EncounterGeorgette KAPLAN Work Phone: noms External Department UnsolicitedStart: 03-21-2024 End: 89-37-6153Xvymkz OnlyConstance Sidel RNProMedica Physicians Pulmonary/Sleep MedicineComment on above:Moderate persistent asthma without complicationStart: 03-18-2024 End: 61-66-7718Bmlo/qhp telephone evaluation 07-24 Delia Arrieta DO Work Phone: [facility] Physicians Pulmonary/Sleep MedicineComment on above:Chronic hypoxic respiratory failure ([facility]) (Primary Dx); Obstructive sleep apnea syndrome; Pulmonary nodule; Moderate persistent asthma without complicationStart: 03-12-2024 End: 82-06-2049Puvpvbzbf encounterScharles Arrieta DO Work Phone: Pro[facility] Pulmonary/Sleep MedicineStart: 02-26-2024 End: 55-05-0941Nwswrrloa encounterScharles Arrieta DO Work Phone: ProReg[facility] Companypat [facility] Pulmonary/Sleep MedicineStart: 02-19-2024 End: 73-15-6595Frgiem OnlyLindsay Arrieta DO Work Phone: [facility] Mike Pulmonary/Sleep MedicineComment on above:Dyspnea on exertion (Primary Dx); Chronic hypoxic respiratory failure ([facility]); Moderate persistent asthma without complicationStart: 02-08-2024 End: 21-52-2493Ruenzk outpatient visit 25 minutesLindsay Arrieta DO Work Phone: [facility] Mike Pulmonary/Sleep MedicineComment on above:Mediastinal lymphadenopathy (Primary Dx); Hypoxia; Pulmonary nodule; Severe obesity (BMI >= 40) ([facility]); Dyspnea on exertionStart: 01-05-2024 End: 48-96-9050Kbmthpgil encounterScharles Arrieta DO Work Phone: [facility] Physicians Pulmonary/Sleep MedicineStart: 12-20-2023 End: 69-88-6431Ecnypcmav department patient visitSvishnu Kent DO Work Phone: [facility] Comment on above:Hyperglycemia (Primary Dx); Acute cystitis without hematuria; HypoxiaStart: 64-61-1995Ksmqotqui encounterLibby Finley MD Work Phone: [facility] Physicians Pulmonary/Sleep MedicineStart: 11-15-2023 End: 79-07-8855Pvzwjorjp to [facility] Phone Call Provider 4 [facility]: 11-10-2023 End: 04-07-4568Rjtmym outpatient new 45 minutesLibby Finley MD Work Phone: [facility]Reg[facility] Companyca Physicians Pulmonary/Sleep MedicineComment on above:Mediastinal lymphadenopathy (Primary Dx); Pulmonary nodule; Morbid obesity (CMS-HCC)Start: 05-09-6934Atcvpb Opal Mckeon [facility] CENTERProMedica Physicians Cardiothoracic Surgeons - Kuldip Jobst TowerComment on above: Mediastinal lymphadenopathy (Primary Dx)Start: 11-09-2023 End: 92-58-7278Dwnhyd consultation new/estab patient 59 Charles Mcneal MD Work Phone: [facility] Cardiothoracic Surgeons - Kuldip Jobst TowerComment on above:Cavitary lesion of lungStart: 10-24-2023 Documentation procedureBethanie LoredoNewark Hospitalca Physicians Cardiothoracic Surgeons - Kuld[place] Jobst TowerStart: 22-70-0439Oltwvjbfexzcc procedureBethanie LoredoNewark Hospitalca Physicians Cardiothoracic Surgeons - Kuldip Jobst TowerStart: 10-10-2023 End: 67-53-7510Fjwlud outpatient visit 15 minutesCorey Demar DO Work Phone: NONQ BCP OBComment on above:AmenorrheaStart: 10-05-2023 End: 68-63-2761Vlolhs follow up visit related to original Mac Snowden NP Work Phone: NODA FB ORTHOPAEDICSComment on above:Status post carpal tunnel release (Primary Dx)Start: 09-25-2023 End: 66-78-6271mrmpxufehdFlqwiGoyo MillerFacility:[facility] HospitalStart: 09-13-2023 End: 33-09-2401rnvuxuplsuTnyuxGoyo MillerFacility:[facility] HospitalStart: 22-18-8758Eczpwkgsduvfd procedureBethanie LoredoNewark Hospitalca Physicians Cardiothoracic Surgeons - Kuldip Jobst TowerStart: 01-10-2023 End: 56-69-1621uwllpltltgRMFW CARMENTAMEKAN .Facility:V4Ubfvw: 12-26-2022 End: 41-55-1572lbzgalvcswHW FELIZ DEMAR .Facility:A8Jtthu: 12-07-2022 End: 64-42-7547bosylflvmsEXTYX MUSTAPHAUniversOhio State Health Systemtart: 11-21-2022 End: 54-19-6902psaetafibzBONFE MUSTAPHAUniversity [facility] Fort Worthtart: 11-04-2022 End: 33-99-9723mfxjegcpmvDKAXP MUSTAPHAUniversity [facility] Fort Worthtart: 09-14-2022 End: 90-97-6479dbcrezviehRP FELIZ DEMAR .Facility:V1Xphvr: 07-14-2022 End: 76-24-5285owjexpxlbvJV FELIZ DEMAR .Facility:Y6Hpcxg: 06-22-2022 End: 90-19-7880wywwtuhabqRH FELIZ DEMAR .Facility:G8Uxhus: 02-23-2022 End: 51-38-0347dmcihmsdslXH DIAZ Phipps NADERERFacility:C0Kaiie: 01-23-2022 End: 26-67-3799neepxsmbqaRF DIAZ Phipps NADERERFacility:N9Wmrfy: 08-72-7291qriijjoucp DIAZ MORALES NADERERFacility:[facility] HospitalStart: 09-28-2021 End: 45-93-3653Muutrbeiro and management of inpatientSelect Medical Specialty Hospital - Columbustart: 09-28-2021 End: 83-01-5656Luglcjnbsy and management of inpatientMichaelod Julianna WERNER Work Phone: stvz 1D Burn UnitStart: 06-09-2015 End: 46-17-5012Epvtpxxhu for gynecological examination (general) (routine) without abnormal findingsJr. Stepanic DO Work Phone: NOWI HealthcareStart: 06-09-2015 End: 37-50-3149Sjcolrtnrrsio examination normalGrant Michelle AVILA Work Phone: [facility] Procedures DateProcedureProcedure DetailPerforming ClinicianStart: 29-76-7284CR Cataract PHACO W/IOL/Vitrectomy (Left)Diaz Dalton MD Work Phone: Start: 14-80-1753ULC BASIC METABOLIC PANELMajuancarlos KAPLAN Work Phone: Start: 24-48-6614GVD 12-LEADCorey Demar DO Work Phone: Start: 91-13-8155NL Cataract PHACO W/IOL/Vitrectomy (Right)Diaz Dalton MD Work Phone: Start: 24-39-6515GM PELVIS W/ TRANSVAGINALGeneric External Data ProviderStart: 15-94-9510XMF CBC WITH AUTO DIFFDiaz Dalton MD Work Phone: Start: 08-06-2119WZ KNEE LT WO CONMattyuridia KAPLAN Work Phone: Start: 40-57-0121Yjtzlayfhx examination knee 1/2 views Shama KAPLAN Work Phone: Start: 40-91-2764Antbcqfait glycosylated g5tKwsxDiaz Dalton MD Work Phone: Start: 20-71-9459TohjioflfdxGgydcf Venia CMAStart: 24-16-4361EQP,APTIMA HPV,AGE GDLNCorey Demar DO Work Phone: Start: 95-09-0884Guimythiaqa observation [Identifier] in Cervix by Cyto stainDiaz Dalton MD Work Phone: Start: 63-86-1399Tqclkd-up visitFollow-upCARSON E OOSTRAStart: 36-14-9942VU TOMOSYNTHESIS SCREENING BICorey Demar DO Work Phone: Start: 87-19-9948XcbfsiijammOsfo Naderer MD Work Phone: Start: 63-09-0455Emhozo-up visitFollow-upSCHARLES ARRIETAStart: 41-72-4684UD PELVIS W/ TRANSVAGINALGeneric External Data Provider Start: 90-31-9919AS ABDOMEN/PELVIS WO CONTGeorgette KAPLAN Work Phone: Start: 67-76-7293Ymtx bld gluc mntr dev cleared fda spec home useMuarturo Graff MD Work Phone: Start: 90-27-9754Obvc bld gluc mntr dev cleared fda spec home useEzequiel Graff MD Work Phone: Start: 93-90-4866Mbeol metabolic panel calcium total Erin A Vanessa MERCHANDISING COORDINATOR-DRAGLINE MECHANIC Work Phone: Start: 12-22-2023 End: 39-17-1954Aecw bld gluc mntr dev cleared fda spec home useMuarturo Graff MD Work Phone: Start: 10-07-0473Ftld bld gluc mntr dev cleared fda spec home useEzequiel Graff MD Work Phone: Start: 06-90-9186Hovo bld gluc mntr dev cleared fda spec home useEzequiel Graff MD Work Phone: Start: 96-57-3590Bjtfw metabolic panel calcium total Erin A Nickerson MERCHANDISING COORDINATOR-DRAGLINE MECHANIC Work Phone: Start: 13-68-2199Jscc bld gluc mntr dev cleared fda spec home useEzequiel Graff MD Work Phone: Start: 69-08-9704Kexj bld gluc mntr dev cleared fda spec home useEzequiel Graff MD Work Phone: Start: 81-45-0829Kzyx bld gluc mntr dev cleared fda spec home useEzequiel Graff MD Work Phone: Start: 50-77-7275VQBS O2 EVALUATIONKynicki Zurita MERCHANDISING COORDINATOR-DRAGLINE MECHANIC Work Phone: Start: 68-84-9220Glmrtye quantitative blood xcpt reagent stripEddie Zurita MERCHANDISING COORDINATOR-DRAGLINE MECHANIC Work Phone: Start: 36-27-3047Tesia metabolic panel calcium total Erin Desire Mendez MERCHANDISING COORDINATOR-DRAGLINE MECHANIC Work Phone: Start: 99-29-6517Qqzm bld gluc mntr dev cleared fda spec home useMuarturo Palomino Dajuan WERNER Work Phone: Start: 67-12-5769JNXTM OXIMETRY, SPOTCharity Desire Nickerson MERCHANDISING COORDINATOR-DRAGLINE MECHANIC Work Phone: Start: 12-20-2023 End: 08-39-6251Hgyo bld gluc mntr dev cleared fda spec home useShayne A Kent DO Work Phone: Start: 71-02-0004Thetdb bodies serum quantitative Dayna Doe MERCHANDISING COORDINATOR-DRAGLINE MECHANIC Work Phone: start: 05-02-7050Akmknpkfif exam chest single view Dayna Howell Brook MERCHANDISING COORDINATOR-DRAGLINE MECHANIC Work Phone: start: 03-10-8524Mzvau dip stick/tablet rgnt auto w/o microscopyShayne A Kent DO Work Phone: Start: 12-20-2023 End: 08-40-0863Fhfupaulqtxle metabolic panelRachel D Brook MERCHANDISING COORDINATOR-DRAGLINE MECHANIC Work Phone: start: 82-21-3511Rrvidtr bacterial quanttative colony count urineRachel D Brook MERCHANDISING COORDINATOR-DRAGLINE MECHANIC Work Phone: start: 77-70-0135Pnl routine ecg w/least 12 lds trcg only w/o i&rRachel D Brook MERCHANDISING COORDINATOR-DRAGLINE MECHANIC Work Phone: start: 94-60-8435Cxbnhgfbxjo observation [Identifier] in Cervix by Cyto stainDiaz Dalton MD Work Phone: Start: 31-14-6054IysdpbfywvjMzxtz Michelle AVILA Work Phone: Start: 79-29-5517Vqfwj depression screening assessment Bethanie WileyStart: 11-33-0661Aiijjxptiim observation [Identifier] in Cervix by Cyto stainJennifer WileyStart: 72-18-9615Hfygaegwewth [Mass/volume] in Urine by Test stripJennifer WileyStart: 00-99-2547Omtfgzc blood reagent stripEugene Salas DO Work Phone: Start: 24-52-2714Weysyxa blood reagent stripEugene Salas DO Work Phone: Start: 66-45-5385Tgtwu metabolic panel calcium total Terrance Smalls PA-C Work Phone: Start: 19-36-6775OQMDMQAX PLATELET FRACTIONTerrance Smalls PA-C Work Phone: Start: 07-54-3920Pwojzdr blood reagent stripEugene Salas DO Work Phone: Start: 28-08-5903Dbezahi blood reagent stripEugene Salas DO Work Phone: Start: 32-49-5587Yvtwdwg blood reagent stripEugene Salas DO Work Phone: Start: 14-68-6582Pbuck function panelEugene Salas DO Work Phone: Start: 35-01-3812Mqpjgfo blood reagent stripEugene Salas DO Work Phone: Start: 10-02-2021 End: 52-76-3377Hpypi of phosphorus inorganicTerrance Smalls PA-C Work Phone: Start: 04-01-2480Zdfwpvi blood reagent stripEugene Salas DO Work Phone: Start: 74-21-7084Lmosk/antitoxin assay tissue culture Omar Lopez MD Work Phone: Start: 56-29-3702Iqcdlfa blood reagent stripEugene Salas DO Work Phone: Start: 10-01-2021 End: 65-57-7952Excstssgtod panelTerrance Smalls PA-C Work Phone: Start: 23-82-8838Ht abdomen & pelvis w/o contrast materialEugene Salas DO Work Phone: Start: 57-36-6141Yatnk-dna/rna gi pthgn multiplex probe tq 12-25Eugene Salas DO Work Phone: Start: 63-25-4402DRZPCWWILBU PANEL, MOLECULAR, WITH COVID-19Eugene Salas DO Work Phone: Start: 78-71-6764Llgnbth blood reagent stripEugene Salas DO Work Phone: Start: 10-01-2021 End: 84-07-3328Ywzihebinax panelEugene Salas DO Work Phone: Start: 77-72-5327Numjs of magnesiumTerrance Smalls PA-C Work Phone: Start: 59-83-1256DDGELYLA PLATELET FRACTIONTerrance Smalls PA-C Work Phone: Start: 36-27-2909Ubeugqf blood reagent stripMaycol Gomez MD Work Phone: Start: 09-30-2021 End: 98-79-6274Dydnlhjmuvh panelTerrance Smalls PA-C Work Phone: Start: 87-16-8905Flkkm dip stick/tablet reagent auto microscopyTerrance Smalls PA-C Work Phone: Start: 12-89-9920Yzzbpyj blood reagent stripMaycol Gomez MD Work Phone: Start: 37-08-6255Fasqe gases any combination ph pco2 po2 co2 rhf7MrmitzTerrance Smalls PA-C Work Phone: Start: 09-30-2021 End: 71-09-7703Hlxvn metabolic panel calcium totalTerrance Smalls PA-C Work Phone: Start: 89-37-4700Pirmvod blood reagent stripMaycol Gomez MD Work Phone: Start: 07-85-0644Wyf prsmptv pthgnc organism scrn w/colony Sejal Smalls PA-C Work Phone: Start: 39-94-0286Ycuzngq blood reagent stripMaycol Gomez MD Work Phone: Start: 20-80-8861Mdwpnokefq glycosylated o2iMlmnMaycol Gomez MD Work Phone: Start: 54-37-0236PQTVQ METABOLIC PANEL W/ REFLEX TO MG FOR LOW KTricia R Bedoya MERCHANDISING COORDINATOR - PLUCK TRIMMER Work Phone: Start: 85-34-2640GTROYQZJ REJECTIONMichaelmandshanon Giron Sra, MD Work Phone: Start: 48-99-4629Dhtdwuc blood reagent stripMaycol Gomez MD Work Phone: Start: 57-89-5693Maouxkt blood reagent stripMaycol Gomez MD Work Phone: Start: 93-30-7629Oyivltd blood reagent stripMaycol Gomez MD Work Phone: Start: 50-73-8403Yaccihw blood reagent stripJamal Levine MD Work Phone: Start: 57-70-9196Ahxsx gases any combination ph pco2 po2 co2 sgy3SsggvJamal Levine MD Work Phone: Start: 09-29-2021 End: 09-82-5913Evnsc metabolic panel calcium totalHarmandeep Bree Ahuja MD Work Phone: Start: 09-35-3847SNRQDUQD Vasiliy Casarez MD Work Phone: Start: 69-98-7647Tgowx metabolic panel calcium total Harmandeep Bree Ahuja MD Work Phone: Start: 89-16-1861Cduhk metabolic panel calcium total Harmandeep Bree Ahuja MD Work Phone: Start: 52-51-0829Hiemkix blood reagent stripJamal Levine MD Work Phone: Start: 35-69-8210Hzqpjev blood reagent stripJamal Levine MD Work Phone: Start: 09-28-2021 End: 02-77-1779Nquxi metabolic panel calcium tomasaMi Bree Ahuja MD Work Phone: Start: 09-28-2021 End: 79-36-6380Wurcckf blood reagent stripJamal Lveine MD Work Phone: Start: 09-28-2021 End: 86-72-3165Lsbal metabolic panel calcium totalMi Bree Ahuja MD Work Phone: Start: 09-28-2021 End: 35-69-9304Eetudrz blood reagent stripJamal Levine MD Work Phone: Start: 63-84-9637Gthcppk blood reagent stripJamal Levine MD Work Phone: Start: 09-28-2021 End: 71-60-3442Voicx metabolic panel calcium totalMi Bree Ahuja MD Work Phone: Start: 09-28-2021 End: 78-61-2496Pkfsjrc blood reagent stripJamal Levine MD Work Phone: Start: 09-28-2021 End: 14-73-1862Moctyqw bacterial quanttative colony count urineMi Giron Sra, MD Work Phone: Start: 61-34-3463Edhfj dip stick/tablet rgnt auto w/o microscopyMi Giron Sra, MD Work Phone: Start: 05-17-3681Qbnmw gases any combination ph pco2 po2 co2 lce1Ohwmgq Marco MDStart: 78-15-2248Cadneafnxv exam chest single view Harmjorgito Giron Sra, MD Work Phone: Start: 09-28-2021 End: 53-14-0088Cbbwb metabolic panel calcium totalRylielongkarley Bree Ahuja MD Work Phone: Start: 36-79-7391BYSASCM, BLOOD 1Harmandshanon Giron Sra, MD Work Phone: Start: 81-24-3245ZZOMKYYG PLATELET FRACTIONHarcara Giron Sra, MD Work Phone: Start: 80-80-1435Eadhypk bacterial blood aerobic w/id isolatesHarcara Giron Sra, MD Work Phone: History of decompression of median nerveStatus post carpal tunnel releaseEset Min Snowden PLUCK TRIMMER Work Phone: History of decompression of median nerveStatus post carpal tunnel releaseEset Min Snowden PLUCK TRIMMER Work Phone: History of decompression of median nerveStatus post carpal tunnel releaseEset T Michelle PLUCK TRIMMER Work Phone: Plan of Treatment DateCare ActivityDetailAuthorStart: 79-88-8418Uyxkoudid for malignant neoplasm of colonNOMS HealthcareStart: 43-52-2252JWgE,Tdap and Td Vaccines (2 - Td or Tdap)DTaP,Tdap and Td Vaccines (2 - Td or Tdap)[facility] SystemStart: 97-51-4980LDbI/Tdap/Td vaccine (2 - Td or Tdap)DTaP/Tdap/Td vaccine (2 - Td or Tdap)[facility] SystemStart: 37-82-4306Pfllvvajn for malignant neoplasm of colon ColonoscopyProSumma Health [facility] SystemStart: 21-62-4507Bgojzfdjc for malignant neoplasm of cervixNOMS HealthcareStart: 67-48-6875Gwmagewup for malignant neoplasm of cervixNOMS HealthcareStart: 99-69-8861Xmesjggu screeningDiabetes: Retinopathy ScreeningNOMS HealthcareStart: 95-64-5483Kvugsjqb screeningDiabetes: Retinopathy ScreeningNOMS HealthcareStart: 85-16-9290Peuyzxpb screening Diabetes: Retinopathy ScreeningNOMN HealthcareStart: 37-48-0671Vffsurpmu for malignant neoplasm of cervixPap SmearNOMS HealthcareStart: 15-25-4158Ryvmb BMI ScreeningAdult BMI ScreeningMagruder Hospital SystemStart: 37-47-6364Eumjh BMI ScreeningAdult BMI ScreeningProMedica Health SystemStart: 36-26-1277Qiofsws ScreeningTobacco ScreeningProMedica Health SystemStart: 22-80-9355Qsrwz screening for proteinDiabetes: Urine Protein ScreeningTOOELE VALLEY [facility] HealthcareStart: 63-66-5768Otnjz BMI ScreeningAdult BMI ScreeningProRegency Hospital Companyca Health SystemStart: 59-35-0674Nwtawbwp screeningDiabetes: Retinopathy ScreeningTOOELE VALLEY [facility] HealthcareStart: 14-49-2577Skasf BMI ScreeningAdult BMI ScreeningProMedica Health SystemStart: 18-03-2962Mekzldf ScreeningTobacco ScreeningProMedica Health SystemStart: 99-71-4636Kfiishf ScreeningTobacco ScreeningProMedica Health SystemStart: 65-84-9564Fizze BMI ScreeningAdult BMI ScreeningProMedica Health SystemStart: 64-37-7213Ppsrjjq ScreeningTobacco ScreeningProMedica Health SystemStart: 88-68-4830Zxzro BMI ScreeningAdult BMI ScreeningProMedica Health SystemStart: 58-01-7048Govxjyd ScreeningTobacco ScreeningProMedica Health SystemStart: 64-31-6339Gssgm BMI ScreeningAdult BMI ScreeningProMedica Health SystemStart: 89-72-8976Msjrygk ScreeningTobacco ScreeningProMedica Health SystemStart: 14-48-6207Wcfqi BMI ScreeningAdult BMI ScreeningProMedica Health SystemStart: 23-55-7570Yzqhnkj ScreeningTobacco ScreeningProMedica Health SystemStart: 08-20-2025 End: 20-15-4199Irtbtcr encounter /17/2025 1:40 PM EST Consult CHELSEY CARRERA [address] [place] [address] Feliz Benz DO [address] [place] [address] CHELSEY GARZAtart: 08-19-2025 End: 52-18-3750Mloullc encounter procedureNOSAN FRANCISCO [facility] OBStart: 63-62-0495Wmozb BMI ScreeningAdult BMI ScreeningProMedica Health SystemStart: 98-01-2376Gjxneas ScreeningTobacco ScreeningNewark Hospitalca St. [facility] SystemStart: 54-84-1205Jobfq BMI ScreeningAdult BMI ScreeningProRegency Hospital Companyca St[facility] SystemStart: 25-39-2061Cfiltay ScreeningTobacco ScreeningProRegency Hospital Companyca St[facility] SystemStart: 87-56-5319Qbwxp BMI ScreeningAdult BMI ScreeningProRegency Hospital Companyca St[facility] SystemStart: 28-62-6009Rrefqzl ScreeningTobacco ScreeningNewark Hospitalca St. [facility] SystemStart: 74-83-2362Aqwizjamd for malignant neoplasm of cervixPap SmearMagruder Hospital SystemStart: 07-10-2025 End: 88-27-0761Mztqhzt encounter oqdikbfyz08/06/2025 1:00 PM EST Office Visit [facility] [address] [place] [phone] Barry Snowden, PLUCK TRIMMER [address] [place] [address] [facility] OrthopaedicsStart: 07-07-2025 End: 14-67-2427Vyahftm encounter procedureProMedica Physicians CardiologyStart: 22-71-8015Qdyegksjv for malignant neoplasm of breastMammogramNOMS [facility] Start: 06-30-2025 End: 19-03-4471Bzgxjtq encounter /27/2025 10:10 AM EDT Office Visit CHELSEY CARRERA [address] [place] [address] Feliz Benz DO [address] [place] [address] CHELSEY GARZAtart: 51-03-6191Ixmny BMI ScreeningAdult BMI ScreeningMagruder Hospital SystemStart: 16-37-2650Owqlupn ScreeningTobacco ScreeningNewark Hospitalca St. [facility] SystemStart: 07-25-0064Knucp BMI ScreeningAdult BMI ScreeningNewark Hospitalca St. [facility] SystemStart: 87-60-5363Islphzp ScreeningTobacco ScreeningMagruder Hospital SystemStart: 82-19-9488Hoinu BMI ScreeningAdult BMI ScreeningMagruder Hospital SystemStart: 05-03-5443Lfsgobd ScreeningTobacco ScreeningMagruder Hospital SystemStart: 06-12-2025 End: 46-22-0501AebgaeqpwSelect Medical Specialty Hospital - Cantontart: 23-99-6846Tbysnsy referralAvita Health System Work Phone: Start: 06-03-2025 End: 75-94-4937Ultgk metabolic 1998 panel - Serum or PlasmaBasic metabolic panel Lab Routine Pre-op examination Expected: 06/03/2025 (Approximate), Expires: [facility] Work Phone: Comment on above:Expected: 06/03/2025 (Approximate), Expires: 06/03/2026Start: 06-03-2025 End: 53-39-2754Ezscazg encounter procedureNORegional West Medical Center OrthopaedicsComment on above:Pre-op examination (Primary Dx)Start: 05-26-2025 End: 24-60-7992Vyxkcgj encounter llylmysrm79/22/2025 1:20 PM EDT Consult [facility] [place] CARRERA [address] [place] [address] Feliz Benz DO [address] [facility] [address] [place], [place] [phone] [facility] [place] DALYGYNStart: 05-22-2025 End: 83-86-0222Crrcswj encounter aleqrwjcs53/18/2025 1:30 PM EDT Office Visit [facility] VERONICA [address] [place] [address] Diaz Dalton MD [address] [place] [address] [facility] FMStart: 20-12-6914Gyuqg BMI ScreeningAdult BMI ScreeningMagruder Hospital SystemStart: 29-02-1496Vymopzt ScreeningTobacco ScreeningProRegency Hospital Companyca Health SystemStart: 05-15-2025 End: 45-70-3468Tdreyuu encounter vhzdabcyy48/11/2025 1:00 PM EDT Office Visit [facility] [address] [place] [address] Diaz Dalton MD [address] [place] [address] [facility]OMGer CASAS FMStart: 05-15-2025 End: 08-32-0868QaqyccagtSelect Medical Specialty Hospital - Cantontart: 05-08-2025 End: 61-94-4928Axzb O2 evaluationHome O2 evaluation Respiratory Care Routine Hypoxia Dyspnea on exertion Expected: 05/08/2025, Expires: 05/01/2026[facility] Work Phone: Comment on above:Expected: 05/08/2025, Expires: 05/01/2026Start: 05-06-2025 End: 10-74-5333anvybssvrl34/02/2025 10:00 AM EDT Infant Monitor [facility] Monitor [address] [place] [address] [facility] MonitorStart: 78-23-7044XCCQM-19 Vaccine ( season)COVID-19 Vaccine ( season)[facility] SystemStart: 26-24-8941Yfuutayvp vaccinationMagruder Hospital SystemStart: 85-55-0834Ffngvaybeu A1c measurementDiabetes: Hemoglobin S4ZNZYJ Healthcare Start: 65-03-0170Wglegle ScreeningTobacco ScreeningProSumma Health [facility] SystemStart: 04-22-2025 End: 73-49-4549Eqwcdej encounter procedureNOMS FB ORTHOPAEDICSComment on above: ArrivedStart: 04-21-2025 End: 73-71-4566Tltgtuv encounter ozzigcafa30/18/2025 2:30 PM EDT Procedure Visit CHELSEY CARRERA [address] [place] [address] [place] [address] Feliz Benz, DO [address] [place] [address] [place] [address] CHELSEY [place] OBGYNStart: 04-21-2025 End: 57-90-5812hfvcunucmiYWZT CI PTStart: 04-18-2025 End: 76-12-4321xefxjdestqPQGH CI PTStart: 04-15-2025 End: 04-86-2531ejzwtxifdvKXSH CI PTStart: 04-14-2025 End: 26-22-0575UV PelvisUS Pelvis w/ TV Imaging Routine Pelvic pain in female Expected: 04/14/2025, Expires: 10/15/2025[facility] Work Phone: comment on above:Expected: 04/14/2025, Expires: 10/15/2025Start: 04-14-2025 End: 71-77-8413Grqwled encounter procedureNOMS [place] OBGYNComment on above: ArrivedStart: 04-10-2025 End: 90-69-5255isiolfxgvtHJHJ CI PTStart: 32-49-4168Ztlxx BMI ScreeningAdult BMI ScreeningCincinnati Children's [facility] Health SystemStart: 93-26-6666Xjwycfk ScreeningTobacco ScreeningMagruder Hospital SystemStart: 04-08-2025 End: 51-37-1857Sxxrsfv encounter procedureNOMS BCP OBStart: 04-07-2025 End: 89-45-0562icbflpttgiXOUU CI PTStart: 04-03-2025 End: 28-45-3686Cxjmwtso Wydrhdh5304/03/2025 11:00 AM EDT Clinical Support [facility] - Pharmacy Medication Management [address] [place] [address] JrnOfdwnvCommunity Regional Medical Center - Pharmacy Medication ManagementStart: 04-02-2025 End: 77-06-5718tnaclrtwicGEUN CI PTComment on above:Acute pain of left knee (Primary Dx)Start: 03-28-2025 End: 27-40-4385ngrtpyfokz19/25/2025 12:00 PM EDT Treatment [facility] PT [address] [facility] [address] [place] [address] Ubaldo Herzog PTANOMS CI PTStart: 03-26-2025 End: 67-34-0775xedlduizxwBOTY CI PTComment on above:Acute pain of left knee (Primary Dx)Start: 03-21-2025 End: 59-97-2487htziqpyvmiFJIZ CI PTComment on above:Acute pain of left knee Start: 03-20-2025 End: 93-69-5243Kzjiboab Ozdsszq1503/20/2025 1:30 PM EDT [facility] [address] [place] [address] YerFbwmcqMontefiore [facility] - Pharmacy Medication ManagementStart: 03-18-2025 End: 83-18-7263Ofjavcd encounter hhzzmikot24/15/2025 11:00 AM EDT Office Visit [facility] [address] [place] [address] Shama Medina, PA [address] [facility] [address] [place] [address] [facility] FB ORTHOPAEDICSStart: 03-17-2025 End: 61-04-2435Zpvdmix encounter pqyigmput36/14/2025 2:30 PM EDT Procedure Visit [facility] [address] [place] [address] Feliz Benz, [address] [place] [address] [facility] BCP OBStart: 03-14-2025 End: 29-49-1010Pitcjrx encounter procedureNOMS PCF ORTHOComment on above:Arrived Start: 03-13-2025 End: 56-61-2732Yyclyzt encounter loccwcakr26/10/2025 9:30 AM EDT Office Visit [facility] [address] [place] [address] Lindsay Arrieta, DO [address] [place] [address] [facility]/Sleep MedicineStart: 02-25-2025 End: 13-48-5361Vtpuhfd encounter procedureNOMS FB ORTHOPAEDICSComment on above: Acute pain of right kneeStart: 02-25-2025 End: 99-21-7273QV Knee - left WO contrastMR knee left wo IV contrast Imaging Routine Internal derangement of left knee Expected: 02/25/2025 (Approximate), Expires: 02/25/2026[facility] Work Phone: Comment on above:Expected: 02/25/2025 (Approximate), Expires: 02/25/2026Start: 02-10-2025 End: 85-79-3410Tjpws metabolic 1998 panel - Serum or PlasmaBasic metabolic panel Lab Routine Benign essential hypertension (CMS/HCC) Expected: 02/10/2025 (Appr oximate), Expires: 02/10/2026[facility] HealthcareComment on above:Expected: 02/10/2025 (Approximate), Expires: 02/10/2026Start: 02-10-2025 End: 44-12-0105TYY W Auto Differential panel - BloodCBC and differential Lab Routine Encounter for long-term (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 medications Expected: 05/2025 (Approximate), Expires: 02/10/2026[facility] HealthcareComment on above: Expected: 02/10/2025 (Approximate), Expires: 02/10/2026Start: 02-10-2025 End: 34-61-7876Xiaecgceld A1c/Hemoglobin.total in BloodHemoglobin A1c Lab Routine Type 2 diabetes mellitus with hyperglycemia, with long-term current use of insulin (CMS/HCC) Expected: 02/10/2025 (Approximate), Expires: 02/10/2026[facility] HealthcareComment on above:Expected: 02/10/2025 (Approximate), Expires: 02/10/2026Start: 02-10-2025 End: 66-13-1176Minigwx function 2000 panel - Serum or PlasmaHepatic function panel Lab Routine Encounter for long-term (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 medications Expected: 02/10/2025 (Approximate), Expires: 02/10/2026[facility] HealthcareComment on above: Expected: 02/10/2025 (Approximate), Expires: 02/10/2026Start: 02-10-2025 End: 35-44-8738Trqkt 1996 panel - Serum or PlasmaLipid panel Lab Routine Dyslipidemia ([facility]/HCC) Expected: 02/10/2025 (Approximate), Expires: 02/10/2026 [facility] HealthcareComment on above:Expected: 02/10/2025 (Approximate), Expires: 02/10/2026Start: 02-10-2025 End: 83-09-6242Ifhflmcaxxeh/Creatinine panel in random UrineMicroalbumin / creatinine, urine ratio Lab Routine Type 2 diabetes mellitus with hyperglycemia, with long-term current use of insulin ([facility]) Expected: 02/10/2025 (Approximate), Expires: 02/10/2026[facility] Healthcare Work Phone: Comment on above:Expected: 02/10/2025 (Approximate), Expires: 02/10/2026Start: 02-10-2025 End: 38-99-9965Anuumnosmsc [Units/volume] in Serum or PlasmaTSH Lab Routine Class 3 severe obesity due to excess calories with serious comorbidity and body mass index (BMI) of 40.0 to 44.9 in adult Expected: 02/10/2025 (Approximate), Expires: 02/10/2026[facility] HealthcareComment on above:Expected: 02/10/2025 (Approximate), Expires: 02/10/2026Start: 02-10-2025 End: 34-98-4529Ftxkjmm encounter bgodxxgbw34/09/2025 1:00 PM EDT Office Visit [facility] [address] [place] [address] Diaz Dalton MD [address] [place] [address] [facility] CASAS FMStart: 13-12-2037Zpjll BMI ScreeningAdult BMI ScreeningProSumma Health [facility] SystemStart: 72-54-9391Fokzaqe ScreeningTobacco ScreeningProTriHealth Bethesda North Hospitaltart: 02-03-2025 End: 38-88-9288Zsouryh encounter offolvwis24/02/2025 10:00 AM EDT Appointment [facility] - Pulmonary Function [address] [place] [address] Lindsay Arrieta, DO [address] [address] [facility] Pulmonary FunctionStart: 02-02-2025 End: 25-87-2029Pqxadmlqv function test Spirometry (Flow Volume Loop) pre/post short acting bronchodilator w/ DLCO (diffusion study)Pulmonary function test Spirometry (Flow Volume Loop) pre/post short acting bronchodilator w/ DLCO ( diffusion study) PFT Routine Moderate persistent asthma without complication Chronic hypoxic respiratory failure ([facility]) Expected: 02/02/2025 (Approximate), Expires: 06/13/2025[facility] Work Phone: Comment on above:Expected: 02/02/2025 (Approximate), Expires: 06/13/2025Start: 62-69-3265Iiffedewbb A1c measurementDiabetes: Hemoglobin C3ZPVYJCameron Regional Medical CenterStart: 01-08-2025 End: 23-67-3884Vbrshqt encounter hmifygpid37/07/2025 1:15 PM EDT Procedure Visit [facility] [address] [place] [address] Carmen Bowman, DPM [address] [place], [place] [address] [facility] PODIATRYStart: 01-03-2025 End: 56-17-4506Yqmpzha encounter msfxycyru34/02/2025 9:15 AM EDT Office Visit [facility] Card[facility] [address] [facility] [address] [place] [address] Katelyn Recio, [address] [place] [address] [facility] CardiologyStart: 12-31-2024 End: 59-35-2434Cvcwlfc encounter xbsrdieqm35/29/2025 11:30 AM EDT Office Visit [facility] [place] [address] Smitha Germain MD [address] [address] [facility]/Sleep MedicineStart: 12-04-2024 End: 85-02-2487Isejygc encounter jcztbihnx57/02/2025 1:00 PM EDT Office Visit [facility] [address] [place] [address] Pacheco Madrigal, MERCHANDISING COORDINATOR-DRAGLINE MECHANIC [address] [place] [address] [facility]/Sleep MedicineStart: 06-33-6724Irtldjxlgw A1c measurementDiabetes: Hemoglobin S0PTKEOCameron Regional Medical CenterStart: 68-40-4956Lsfmrff ScreeningTobacco Screening [facility] Mountaintart: 11-20-2024 End: 60-57-2327Poewxrld Gfcwxcy9311/20/2024 8:00 PM EDT Clinical Support [facility] - Sleep Disorders [address] [place] [address] Smitha Germain MD [address] [address] [facility] DisordersStart: 46-31-2114Jzbpt BMI ScreeningAdult BMI ScreeningProRegency Hospital Companyca Health SystemStart: 46-52-0719Vchqmzh ScreeningTobacco ScreeningProRegency Hospital Companyca [facility] SystemStart: 00-40-1393Cesly BMI ScreeningAdult BMI ScreeningProMedica St. [facility] SystemStart: 23-51-7774Qhxesoy ScreeningTobacco ScreeningMagruder Hospital [facility] Start: 11-07-2024 End: 06-36-1071Xkbwrow encounter procedureNOOKLAHOMA SPINE [facility] [facility] FMComment on above:Arrived Start: 10-28-2024 End: 57-00-1434Jwircpt encounter wfeuiqbtg99/24/2025 2:15 PM EST Office Visit [facility] [address] [place] [address] Diaz Dalton MD [address] [place] [address] ArrivedNOMS [facility] FMComment on above:ArrivedStart: 10-28-2024 End: 84-42-6223Nudlybyvfo A1c/Hemoglobin.total in BloodHemoglobin A1c Lab Routine Type 2 diabetes mellitus with hyperglycemia, with long-term current use of insulin ([facility] Expected: 10/28/2024 (Approximate), Expires: 10/28/2025[facility] Work Phone: Comment on above:Expected: 10/28/2024 (Approximate), Expires: 10/28/2025Start: 00-21-9118Zhdqsjz ScreeningTobacco ScreeningMagruder Hospital SystemStart: 06-24-1813Tezin BMI ScreeningAdult BMI ScreeningMagruder Hospital SystemStart: 10-09-2024 End: 90-83-6494Einxakt encounter /05/2025 1:15 PM EST Office Visit [facility] [address] [place] [address] Carmen Bowman, DPGeorgette [address] [place] [address] [facility]IATRYStart: 10-07-2024 End: 58-78-2946Btactuy encounter rbhbzxybq83/03/2025 8:15 AM EST Office Visit [facility] [address] [facility] 1 [place] [address] Katelyn Recio MD [address] [place] [address] [facility] Physicians CardiologyStart: 06-50-1251Vioha screening for proteinDiabetes: Urine Protein ScreeningNOMN HealthcareStart: 09-25-2024 End: 07-32-5249Wwrhjne encounter loonwdswb62/22/2025 1:15 PM EST Office Visit [facility] [address] [place] [address] Carmen Bowman, DPM [address] [place], [place] [address] [facility]ODIATRYStart: 09-12-2024 End: 67-17-8653Fwnpmxjft to same day surgery fghynu2809/12/2024 11:30 AM EST - 09/12/2024 12:00 PM EST Surgery [facility] [address] [place] [address] Aliya Solorzano, DO [address] [place], [place] [id number] COLONOSCOPY DIAGNOSTIC / SCREENING [54016 (CPT)][facility] SystemComment on above:COLONOSCOPY DIAGNOSTIC / SCREENING [54043 (CPT )]Start: 09-12-2024 End: 57-34-9463Iucusjskmz tsvpqxcduqum07/09/2025 11:30 AM EST Anesthesia Event [facility] [address], [place] [address] Ector Saini, DO [address] [place] [address] [facility] Start: 09-12-2024 End: 61-25-5541Wurfclzstgg flx dx w/collj spec when pfrmdCOLONOSCOPY DIAGNOSTIC / SCREENING Screen for colon cancer 09/12/2024 11:30 AM ESTFREMONT SURGERYStart: 13-30-1609Okwdfwodlr hospital visit by /09/2025 11:30 AM EST Hospital Encounter [facility] - Surgery [address] [place] [address] Aliya Solorzano, DO [employer] [place], [place] [address] [facility] - SurgeryStart: 08-15-2024 End: 24-24-0010Eqqziny encounter xzoqgsfno68/12/2024 1:30 PM EST Office Visit [facility] [address] [place] [address] Diaz Dalton MD [address] [place] [address] [facility] C[facility] FMStart: 59-77-9321Xygytimycs A1c measurementDiabetes: Hemoglobin M3YDKDB HealthcareStart: 08-06-2024 End: 18-88-1356Ftndjuv encounter procedureNOMS [facility] OBComment on above:Arrived Start: 07-25-2024 End: 14-24-6507Jrjbf metabolic 2000 panel - Serum or PlasmaBasic Metabolic Panel Lab Routine Dyspnea on exertion Pulmonary hypertension ([facility]) Expected: , Expires: 07/18/2025[facility] Work Phone: Comment on above:Expected: 07/25/2024, Expires: 07/18/2025Start: 07-18-2024 End: 10-80-8261Omikvln encounter iakpvuxcc90/14/2024 11:30 AM EST Office Visit [facility] [address] [place] [address] Hair See MD [address] [place] [address] [facility] CardiologyStart: 07-15-2024 End: 70-17-1351Bohipqu encounter jpzgkdyuf55/11/2024 10:15 AM EST Office Visit [facility] [address] [place] [address] Barry Snowden, PLUCK TRIMMER [address] [place], [place] [address] [facility] FB ORTHOPAEDICSStart: 39-33-6807Crcma BMI ScreeningAdult BMI Screening [facility] SystemStart: 30-58-5368Npfohuy ScreeningTobacco Screening [facility] Mountaintart: 07-04-2024 End: 80-25-3552Zybfttdr Ofyzope0707/04/2024 9:00 AM EDT Clinical Support [facility] Cardiology [address] [place] [address] [facility] CardiologyStart: 77-44-7786Tafnsskma for malignant neoplasm of breastMammogramNOMS HealthcareStart: 06-26-2024 End: 27-15-3755Evbazmoki to same day surgery pigkxz1606/26/2024 8:30 AM EDT - 06/26/2024 9:30 AM EDT Surgery [facility] Cardiac Cath [address] [place] [address] Nicolás Vallejo MD [address] [place] [address] Cardiac Invasive [facility] Cardiac CathComment on above:Cardiac InvasiveStart: 14-80-5673Lxlityaflf hospital visit by brajwgkuo05/23/2024 8:30 AM EDT Hospital Encounter [facility] Cardiac Cath [address] [facility] [place] [address] Nicolás Vallejo MD [address] [facility] [place] [address] Pulmonary hypertension ([facility] - Cardiac CathComment on above:Pulmonary hypertension ([facility]) Start: 06-24-2024 End: 67-29-7905Jdldjna encounter procedureNOMS FB ORTHOPAEDICSComment on above: ArrivedStart: 06-20-2024 End: 00-35-7246Ytrsehd encounter vezbzgeak35/17/2024 8:00 AM EDT Office Visit [facility] [address] [facility] 1 [place] [address] Nicolás Vallejo MD [address] [place] [address] Katelyn Recio MD [address] [place] [address] [facility] Start: 06-17-2024 End: 18-10-9886Gskpbyr encounter qyvtzqqqi08/14/2024 9:00 AM EDT Procedure Visit [facility] Gary Miller, DO [address] [facility] [address] [place] [address] [facility] EXT DEPStart: 06-13-2024 End: 24-17-5258Csqtumr encounter vnxjuueyr17/10/2024 1:00 PM EDT Office Visit [facility]Sleep [facility] [address] [place] [address] Lindsay Arrieta, DO [address] [address] [facility] Pulmonary/Sleep MedicineStart: 97-35-2133Pxwswweqlu ScreeningDepression ScreeningProMedica Health SystemStart: 05-30-2024 End: 59-71-2223Mypylcx encounter procedureNOMS FB ORTHOPAEDICSComment on above: ArrivedStart: 05-29-2024 End: 76-23-7263Zegubyj encounter qtrdeplzz25/25/2024 9:45 AM EDT Office Visit [facility] CWGeorgette FM [address] [place] [place] [address] Diaz Dalton MD [address] [place] [address] [facility] FMComment on above:ArrivedStart: 05-28-2024 End: 56-14-3294Llvojgm encounter njovoexnz58/24/2024 11:30 AM EDT Office Visit [facility] [address] [facility] 1 [place] [address] Nicolás Vallejo MD [address], [place] [address] [facility] CardiologyStart: 05-16-2024 End: 17-09-4642Ctskugd encounter iuuhrzpvv98/12/2024 9:45 AM EDT Office Visit [facility] [address] [place] [address] Lindsay Arrieta DO [address] [facility] [address] [place] [address] [facility] Pulmonary/Sleep MedicineStart: 11-83-4948Wjbnabymlx A1c measurementDiabetes: Hemoglobin R9RTBIMCameron Regional Medical CenterStart: 05-14-2024 End: 05-44-2085Lxjahzt encounter dssfegvkf06/10/2024 8:30 AM EDT Appointment [facility] - Cardiovascular [address] [place] [address] [phone] Hospitals [facility] - [facility] Start: 05-13-2024 End: 84-15-6546Jdfgopucuj A1c/Hemoglobin.total in BloodHemoglobin A1c Lab Routine Type 2 diabetes mellitus with hyperglycemia, with long-term current use of insulin ([facility]) Expected: 05/13/2024 (Approximate), Expires: 05/13/2025[facility] Work Phone: Comment on above:Expected: 05/13/2024 (Approximate), Expires: 05/13/2025Start: 05-13-2024 End: 76-19-7551Colcsrt encounter procedureNOMS CWM FMComment on above:Arrived Start: 99-19-0216UBZGO-19 Vaccine ( season)COVID-19 Vaccine ( season)[facility] Mountaintart: 61-67-7670SQUOV-19 Vaccine ( season)COVID-19 Vaccine ()[facility] Start: 93-32-9468Hdxdiwiyt vaccinationNOMS HealthcareStart: 04-24-2024 End: 60-87-2335Rmszhzb encounter gtkrrhluw62/21/2024 1:50 PM EDT Office Visit [facility] [address] [place] [address] Feliz Benz DO [address] [facility] [address] [place], [place] [address] ArrivedNOMS BCP OBComment on above:ArrivedStart: 04-23-2024 End: 12-26-5918JM Chest limited W contrast IVCT chest with contrast Imaging Routine Mediastinal lymphadenopathy Expected: 04/23/2024, Expires: 02/07/2025 [facility] Work Phone: Comment on above:Expected: 04/23/2024, Expires: 02/07/2025Start: 04-23-2024 End: 68-04-4179Xgjfzkj encounter lhljqqyrg74/20/2024 8:30 AM EDT Appointment [facility] Imaging [address] [place] [address] Lindsay Arrieta, DO [address] [address] [facility] CT ImagingStart: 04-09-2024 End: 65-11-1991Rvkgtad encounter /06/2024 11:00 AM EDT Office Visit [facility] [address] [place] [address] Smitha Germain MD [address] [address] [facility] Pulmonary/Sleep MedicineStart: 03-18-2024 End: 78-17-7991Ujhlykohxiai consultation with kthgirt1203/18/2024 3:00 PM EDT Telemedicine [facility] [address] [address] Lindsay Arrieta, [address] [address] [facility] Pulmonary/Sleep MedicineStart: 03-12-2024 End: 97-74-6377Fwolvrxfvekh consultation with rflcgyf6203/12/2024 2:00 PM EDT Telemedicine [facility] Medicine [address] [address] Lindsay Arrieta, [address] [address] [facility] Pulmonary/Sleep MedicineStart: 02-19-2024 End: 63-77-8420Cjml complete W/O contrastEcho complete W/O contrast Echocardiography Routine Dyspnea on exertion Chronic hypoxic respiratoryfailure (CMS-HCC) Expected: 02/19/2024, Expires: 02/18/2025[facility] Work Phone: Comment on above:Expected: 02/19/2024, Expires: 02/18/2025Start: 02-19-2024 End: 57-41-1489NT Chest PA and LateralX-ray chest 2 views Imaging Routine Dyspnea on exertion Expected: 02/19/2024, Expires: 02/18/2025ProRegency Hospital CompanySpineThera SystemComment on above:Expected: 02/19/2024, Expires: 02/18/2025Start: 02-15-2024 End: 05-18-6577gbfhdgwnjn98/13/2024 2:00 PM EDT Monitor [facility] - Monitor [address] [place] [address] [phone] Health Behavioral Medical Center - Infant MonitorStart: 02-13-2024 End: 10-15-4337Xucoznb encounter msomcqjyd63/11/2024 8:00 AM EDT Appointment [facility] - Pulmonary Function [address] [place] [address] Lindsay Arireta, DO [address] [facility] - Pulmonary FunctionStart: 02-08-2024 End: 17-72-2456Keevpgc encounter tgeadkfzi57/06/2024 9:00 AM EDT Office Visit [facility]Sleep Medicine [facility] [place] [address] Lindsay Arrieta, DO [address] [address] [facility] Pulmonary/Sleep MedicineStart: 11-22-2023 End: 88-26-7410Kztyxwvas to same day surgery yvrgjf3311/22/2023 1:30 PM EDT - 11/22/2023 3:15 PM EDT Surgery [facility] - Endoscopy [address] [place] [address] Libby Finley MD [address] [facility] [address] [place], [place] ENDOBRONCHIAL ULTRASOUND BRONCHOSCOPYOhioHealth Mansfield Hospital EndoscopyComment on above: ENDOBRONCHIAL ULTRASOUND BRONCHOSCOPYStart: 11-22-2023 End: 21-40-7906YJAHLWFWVVGUZ ULTRASOUND BRONCHOSCOPYENDOBRONCHIAL ULTRASOUND BRONCHOSCOPY LYMPH ADENOPATHY 11/22/2023 1:30 PM ED[facility] Start: 88-84-3380Qskjepgdre hospital visit by jtozvysxg93/20/2024 1:30 PM EDT Hospital Encounter [facility] - Endoscopy [address] [place] [address] Libby Finley MD [address] [facility] [place] [address] [facility] EndoscopyStart: 11-15-2023 End: 15-19-6184Drhseffkh to kremlnezejpoq18/13/2024 10:30 AM EDT Support Visit [facility] On [address] [address]AyfOmnrur [facility] On [facility] Start: 11-02-2023 End: 79-85-2757Qmpbpii encounter faqnmjinh91/29/2024 1:30 PM EST Office Visit [facility] [address] [place] [address] Barry Snowden, [place] [address] [place] [address] [facility] ORTHOPAEDICSStart: 10-26-2023 End: 90-60-1281Bvfpwor encounter pfbaxcfsu77/22/2024 10:00 AM EST Appointment [facility] - Ultrasound [address] [place] [address] ItsLdboeeOhio [facility] Hospital - UltrasoundStart: 10-17-2023 End: 21-77-0185Ofgmpyc encounter gblrgqegy23/13/2024 1:30 PM EST Office Visit [facility] [address] [place] [address] Diaz Dalton MD [address] [place] [address] [facility] AUG[facility]O FMStart: 10-11-2023 End: 40-75-4268Qigfshazq, totalEstrogens, total Lab Routine Amenorrhea Expected: 10/11/2023 (Approximate), Expires: 10/11/2024NOMN HealthcareComment on above: Expected: 10/11/2023 (Approximate), Expires: 10/11/2024Start: 10-11-2023 End: 38-11-6161QI for pregnancyUS PELVIS-TRANSVAG IF INDICATED Imaging Routine Amenorrhea Expected: 10/11/2023 (Approximate), Expires: 10/11/2024[facility] HealthcareComment on above:Expected: 10/11/2023 (Approximate), Expires: 10/11/2024Start: 10-10-2023 End: 05-03-9140Yfxwbmn encounter sjkcadahv72/06/2024 8:00 AM EST Office Visit [facility] [address] [facility] [place] [address] Feliz Benz, DO [address] [facility] [place] [address] AmenorrheaNOMS [facility] OBComment on above:AmenorrheaStart: 06-04-3289Hnveq screening for proteinUrine MicroalbuminProRegency Hospital Companyca [facility] Start: 31-61-2552Wuxtzkjbke A1c measurementDiabetes: Hemoglobin W1WCYLX HealthcareStart: 55-06-7352MOJCP-19 Vaccine ( season)COVID-19 Vaccine ( season)[facility]aintart: 34-05-2951Wizdpmoff vaccinationTOOELE VALLEY HOSPITAL HealthcareStart: 94-54-5104Iqfqvdzsna A1c sgddeyjetkjE4K test (Diabetic or Prediabetic)[facility] SystemStart: 26-96-1044SIFQE-19 Vaccine (3 - Booster for Pfizer series)COVID-19 Vaccine (3 - Booster for Pfizer series)[facility] SystemStart: 28-17-6775MBvR/Tdap/Td Vaccines (2 - Td or Tdap)DTaP/Tdap/Td Vaccines (2 - Td or Tdap)[facility] HealthcareStart: 14-25-1333Fodhgmtjn vaccination Flu vaccine (#1)[facility] Hospitalart: 56-15-5150Rhrlcbzbs for malignant neoplasm of cervixAcmc Healthcare SystemStart: 16-04-4959MUB Vaccines (1 - 3-dose SCDM series)HPV Vaccines (1 - 3-dose SCDM series)[facility] CenterStart: 85-80-6839Prnzzobvu for malignant neoplasm of cervixPap smearAcmc Healthcare SystemStart: 49-27-8927Bgdsyfnwx B vaccine (1 of 3 - Risk 3-dose series)Hepatitis B vaccine (1 of 3 - Risk 3-dose series)[facility] SystemStart: 72-23-5686Bbzosgcfn B Vaccines (1 of 3 - 19+ 3-dose series)Hepatitis B Vaccines (1 of 3 - 19+ 3-dose series)[facility] CenterStart: 63-40-0215Dnnfo BMI Follow Up PlanAdult BMI Follow Up PlanCarolinas ContinueCARE Hospital at Kings Mountaintart: 87-99-9697Dkcefxyo foot examinationDiabetic Foot ExamCarolinas ContinueC[facility] Mountaintart: 37-81-7332Liedpbaz retinal examDiabetic retinal examAcmc Healthcare SystemStart: 43-37-8563Goghx screening for proteinDiabetic microalbuminuria test [facility]: 54-92-6057PDO screeningHIV screenNationwide Children's Hospitalart: 81-02-3351Msuimttllz ScreenDepression ScreenNationwide Children's Hospitalart: 1989 Diabetic foot examinationDiabetic foot examAcmc Healthcare SystemStart: 93-15-5035Eprkjfzc screeningDiabetes: Retinopathy ScreeningCameron Regional Medical CenterStart: 02-72-9452Qgzdz panelLipid screenAcmc Healthcare SystemStart: 89-49-9066Qjkpuhevmcjd 0-64 years Vaccine (1 of 2 - PPSV23)Pneumococcal 0-64 years Vaccine (1 of 2 - PPSV23)[facility] Start: 53-03-3763CYG Vaccines (1 of 1 - Standard series)MMR Vaccines (1 of 1 - Standard series)[facility] CenterStart: 05-53-8374Wjrbriqc screeningDiabetic Ophthalmology ExamCarolinas ContinueCARE Hospital [facility] Kings Mountaintart: 80-18-9906Fokfefsep C screening Hepatitis C screenAcmc Healthcare SystemStart: 79-48-3104Qulkzrwlr for malignant neoplasm of colonNOMN HealthcareStart: 40-50-9584Xnxxtv Use: DiabeticStatin Use: Diabetic [facility] Medical CenterBasic metabolic 2000 panel - Serum or PlasmaBasic Metabolic Panel Lab Routine Lab max of 3 days, Daily, for lab use only until discontinued starting 12/21/2023, 3 completedSt Johnsbury HospitalCarbon Salon SystemComment on above:Lab max of 3 days, Daily, for lab use only until discontinued starting 12/21/2023, 3 completedBedside Glucose *Place/Obtain serum glucose if >500(>600 MRH) per glucometer.Bedside Glucose *Place/Obtain serum glucose if >500(>600 MRH) per glucometer. Point of Care Testing Routine 4X Daily (AC and at bedtime) until discontinued starting 12/21/2023, 10 completedSt Johnsbury HospitalCarbon Salon System Comment on above:4X Daily (AC and at bedtime) until discontinued starting 12/21/2023, 10 completedCBC panel - Blood by Automated countCBC without diff Lab Routine Lab max of 3 days, Daily, for lab use only until discontinued starting 12/21/2023, 3 completedSt Johnsbury HospitalCarbon Salon SystemComment on above:Lab max of 3 days, Daily, for lab use only until discontinued starting 12/21/2023, 3 completedCBC W Auto Differential panel - BloodCBC auto differential Lab Routine Daily until discontinued starting 09/29/2021, 4 [employer] Work Phone: comment on above:Daily until discontinued starting 09/29/2021, 4 completed End: 89-44-7097CvksvblguatjqRxgydwwzwredo Lab Routine Mediastinal lymphadenopathy Pulmonary nodule 1 Occurrences starting 11/10/2023 until 11/09/2024St Johnsbury HospitalAppCardComment on above:1 Occurrences starting 11/10/2023 until 11/09/2024 End: 97-15-1262Mhagoiglts includes GFR, serumCreatinine includes GFR, serum Lab Routine Mediastinal lymphadenopathy 1 Occurrences starting 02/08/2024 until 02/07/2025St Johnsbury HospitalAppCardComment on above:1 Occurrences starting 02/08/2024 until 02/07/2025ulture, Anaerobic and AerobicCulture, Anaerobic and Aerobic Microbiology [employer] Label Print 09/30/2021 9:50 AM [employer] Work Phone: Follicle stimulating hormoneFollicle stimulating hormone Lab Routine Amenorrhea Ordered: 10/11/2023[employer] Work Phone: comment on above:Ordered: 10/11/2023 End: 42-22-2883Voqfdfvyn Assay for (1,3)-T-B-GeyhioNmsnzycag Assay for (1,3)-B-D-Glucan Lab Routine Mediastinal lymphadenopathy Pulmonary nodule 1 Occu rrences starting 11/10/2023 until 11/09/2024St [facility] HospitalJust Between Friends Work Phone: Comment on above:1 Occurrences starting 11/10/2023 until 11/09/2024Glucose [Mass/volume] in Serum or PlasmaPOCT glucose Point of Care Testing Routine 4X Daily (AC & HS) until discontinued starting 09/29/2021 [facility] CenterSatin [employer] ([employer]) Work Phone: comment on above:4X Daily (AC & HS) until discontinued starting 09/29/2021 End: 24-80-0682Rdkiawuvpjz antigen, serumHistoplasma antigen, serum Lab Routine Mediastinal lymphadenopathy Pulmonary nodule 1 Occurrences starting 11/10/2023 until 11/09/2024[facility] [employer] [facility] HospitalComment on above:1 Occurrences starting 11/10/2023 until 11/09/2024 End: 21-73-5020Hunjnmodkyb antigen, urineHistoplasma antigen, urine Microbiology Routine Mediastinal lymphadenopathy Pulmonary nodule 1 Occurrences starting 11/10/2023 until 11/09/2024[facility] HospitalSpineThera [facility] HospitalComment on above:1 Occurrences starting 11/10/2023 until 11/09/2024 End: 63-02-5733Byof O2 eval (desaturation screen)Home O2 eval (desaturation screen) Respiratory Care Routine Hypoxia Dyspnea on exertion 1 Occurrences starting 02/08/2024 until 02/07/2025[facility] HospitalSpineThera [facility] HospitalComment on above:1 Occurrences starting 02/08/2024 until 02/07/2025 End: 52-09-6459Zzgxecufri pneu IGGHyperssens pneu IGG Lab Routine Mediastinal lymphadenopathy Pulmonary nodule 1 Occurrences hqmsvyxb43/08/2024 until 11/09/2024[facility] HospitalSpineThera [facility] HospitalComment on above:1 Occurrences starting 11/10/2023 until 11/09/2024 End: 14-66-5434Fdsirjsc RT ProtocolInitiate RT Protocol Respiratory Care Routine Continuous until discontinued starting 10/01/2021[facility] NorthTIDAL PETROLEUM Work Phone: comment on above:Continuous until discontinued starting 10/01/2021[facility] Lab Routine Amenorrhea Ordered: 10/11/2023N[facility] HealthcareComment on above:Ordered: 10/11/2023 End: 81-16-1788Zzrjp panelLipid panel Lab Routine Pure hypercholesterolemia 1 Occurrences starting 07/07/2025 until 07/07/2026[facility] Work Phone: Comment on above:1 Occurrences starting 07/07/2025 until 07/07/2026Magnesium [Mass/volume] in Serum or PlasmaMagnesium Lab Routine Lab max of 3 days, Daily, for lab use only until discontinued starting 024, 3 completedProCarbon Salon SystemComment on above:Lab max of 3 days, Daily, for lab use only until discontinued starting 12/21/2023, 3 completed Oxygen Therapy - Maintain SpO2: 90%; *FUR GRADER Guidelines for O2: Yes; Document: \phsi.[facility].org\epic\EPIC_Reference\Orders\Respiratory Care Guidelines\CPG Oxygen 2020.pdfOxygen Therapy - Maintain SpO2: 90%; *FUR GRADER Guidelines for O2: Yes; Document: \phsi.[facility].org\epic\EPIC_Reference\Orders\Respiratory Care Guidelines\CPG Oxygen 2020.pdf Respiratory Care Routine AsNeeded until discontinued starting 4[facility] Work Phone: Comment on above:As Needed until discontinued starting 12/20/2023Oxygen therapy [Minimum Data Set]Initiate Oxygen Therapy Protocol Respiratory Care Routine Daily until discontinued starting 09/28/2021[facility] NorthTIDAL PETROLEUM Work Phone: comfmbh on above:Daily until discontinued starting 09/28/2021atient EducationKnow your [facility] Work Phone: Patient [facility] Work Phone: End: 75-02-0682KUWFZBRYYX BLOOD SMEAR, PATH REVIEWZanesville City Hospital [employer] Work Phone: Comment on above:One Time for 1 Occurrences starting 10/01/2021 until 2Phosphate [Mass/volume] in Serum or PlasmaPhosphorus Lab STAT Tomorrow AM until discontinued starting 10/01/2021, 3 completedPersonaling Phone: comment on above:Tomorrow AM until discontinued starting 10/01/2021, 3 completed End: 99-63-6287Ufqshyyqvistowg 4 or more parameters with PAP titration Polysomnography 4 or more parameters with PAP titration Sleep Center Routine JOSE M (obstructive sleepapnea) Chronic hypoxic respiratory failure ([facility]) Severe obesity (BMI >= 40) ([facility]) 1 Occurrences starting 04/09/2024 until 04/09/2025 [employer] SystemComment on above:1 Occurrences starting 04/09/2024 until 04/09/2025 End: 38-91-4350YUTTKVKP [employer] Phone: Comment on above:Once for 1 Occurrences starting 09/29/2021 until 09/29/2021 End: 84-25-4329TVXBZGWF [employer] Phone: comment on above:Once for 1 Occurrences starting 09/30/2021 until 2ProgesteroneProgesterone Lab Routine Amenorrhea Ordered: 10/11/2023[facility] [employer] HoldingsComment on above:Ordered: 10/11/2023 End: 66-41-7282WGV DiagnosticPSG Diagnostic [facility] Routine JOSE M (obstructive sleep apnea) Chronic hypoxic respiratory failure ([facility]) Severe obesity (BMI >= 40) ([facility]) 1 Occurrences starting 04/09/2024 until 04/09/2025 [employer] Phone: Comment on above:1 Occurrences starting 04/09/2024 until 04/09/2025Respiratory care evaluation onlyRespiratory care evaluation only Respiratory Care Routine As Needed until discontinued starting 10/01/2021Personaling Phone: comment on above:As Needed until discontinued starting 10/01/2021THIN PREP TIS PAP AND HR HPV DNATHIN PREP TIS PAP AND HR HPV DNA Pathology and Cytology Routine Well woman exam with routine gynecological exam Ordered: 08/06/2024[facility] Work Phone: comment on above:Ordered: 08/06/2024 End: 05-37-9255Sxngs ostomy eval and treatWound ostomy eval and treat Wound Ostomy Routine One Time for 1 Occurrences starting 09/28/2021 until 09/28/2021 [facility] Work Phone: comment on above:One Time for 1 Occurrences starting 09/28/2021 until 09/28/2021 Immunizations Immunization DateImmunizationNotesCare QkkkgxfaSseohuuu37-11-6672Guluixhbqhlf Conjugate PCV 20Diaz Dalton MD Work Phone: [facility] CenterBxrlmjqsmw02-46-9041bolkcxg toxoid, reduced diphtheria toxoid, and acellular pertussis vaccine, adsorbedGrant Snowden PLUCK TRIMMER Work Phone: [facility] CenterLpxaekxujv56-02-5787yypbpfvhk, injectable, quadrivalent, preservative freeEset Michelle PLUCK TRIMMER Work Phone: [facility] CenterPfwsemlntx04-69-7494poaehmadn virus vaccine, unspecified formulationGrant Michelle PLUCK TRIMMER Work Phone: [facility] CenterYmvjuujjbc19-06-4221orkosdixd, injectable, quadrivalent, preservative freeDiaz Dalton MD Work Phone: [facility] CenterChncbeyuyl05-23-9956fyagtjbnt, injectable, quadrivalent, preservative freeDiaz Dalton MD Work Phone: [facility] CenterTreeesrcdz27-55-0879ucxlfmdqo, injectable, quadrivalent, preservative freeDiaz Dalton MD Work Phone: [facility] CenterImlnlfghxy17-09-7989tcxfxcxfy, injectable, quadrivalent, preservative freeDiaz Dalton MD Work Phone: [facility] CenterPdplssesba43-03-4417bbtwdbp toxoid, adsorbedDiaz Dalton MD Work Phone: [facility] Payers DatePayer CategoryPayerPolicy [id number]-pay2017Medicaid [id number] 2.16.840.1.357032.3.57[id number] 2.16.840.1.890880.3.57[id number] 2.16.840.1.997159.3.57[id number] 2.16.840.1.272680.3.57[id number] 2..840.1.956225.3.579.2.37834-09-7613Irizxes6894419 2.16.840.1.184375.3.57[id number] 2.16.840.1.067607.3.579.2.03313-51-7737Buwoxez5793809 2..840.1.398768.3.57[id number] 2.840.1.022694.3.579.[id number] 2.16.840.1.861007.3.579.2.29313-42-4233Ignchlh01392818 2.16.840.1.740706.3.57[id number] 2.16.840.1.102899.3.57[id number] 2.16.840.1.346670.3.579.[id number] 2.16.840.1.248681.3.579.2.097194-03-5083Mbdtljt29382169 2.0.1.977662.3.579.2.337242-04-1220Hippicx051838607 2.840.1.431196.3.579.2.050193-19-1894Ylqtmhb921682251 2.0.1.011246.3.579.[id number] 2..1.090269.3.579.2.240520-26-6728Pvrhnpz33513070 2.0.1.099548.3.579.2.922883-74-0733Nxfyrbh84696458 2..1.164035.3.579.2.163885-90-3910Sksaebv15649305 2.0.1.594243.3.579.2.250334-25-3097Arsmllm46627697 2..1.099820.3.579.2.978320-94-7593Acafhww65126444 2.0.1.655629.3.579.2.730664-00-4856Bobqzke42711226 2..1.385755.3.579.2.585686-84-5713Qxggjjs34950962 2.840.1.761962.3.579.2.467076-58-6903Kjonwli86272423 2.0.1.181366.3.579.2.946400-74-0128Vksqjta91077525 2.840.1.478981.3.579.2.823025-92-2318Gddafjs65854289 2.840.1.772931.3.579.2.635486-74-0725Vdyvxbe68464501 2.16.840.1.600127.3.579.2.949717-97-6509Cyakkaf48582970 2.16.840.1.970890.3.579.2.574538-30-7946Nkiezkq30854183 2..840.1.545898.3.579.2.460743-83-5670Cflnpgj46018785 2..840.1.779697.3.579.2.715099-77-3556Hjjcchw47037396 2.840.1.685457.3.579.2.337127-05-9209Oebbrci6871682 2.840.1.570544.3.579.2.641328-37-5654Lnijxni0790379 2..1.176331.3.579.2.305997-24-9356Dcoulds5165900 2.840.1.477853.3.579.2.064716-99-1419Gygxzkc6475550 2.840.1.623703.3.579.2.398370-95-3690Dghmodd7713206 2..1.144834.3.579.2.956076-82-4697Zeacbin0124009 2.840.1.593855.3.579.2.469257-31-9174Duiniwz0412879 2.840.1.834077.3.579.2.718463-33-9835Qamfhlb555167186 2.840.1.514165.3.579.2.906077-18-5333Rsmixqi483742303 2.840.1.044937.3.579.2.673268-22-8648Roxwmky152494236 2..840.1.838534.3.579.2.283310-22-4657Zdhvbaa390676616 2..840.1.186911.3.579.2.549681-65-5778Htlyzwa497057087 2..840.1.769104.3.579.2.771935-29-3455Zawfkje294900867 2.840.1.801017.3.579.2.432839-53-8269Mzqeusc054679976 2.840.1.466595.3.579.2.061380-78-0694Kzeegvb545061286 2.840.1.989523.3.579.2.410211-91-3981Klhjqsi68554240 2.0.1.829632.3.579.2.050205-76-8277Bdwhwig60930302 2.840.1.110885.3.579.2.769088-68-6182Zuvhyua30606857 2.840.1.651991.3.579.2.274624-40-6767Tcjxmyo13406344 2.840.1.564059.3.579.2.1286 [id number] 1..840.433173.1.13.239.2.7.3.851918.907Mrphyfn77499477 2.840.1.013047.3.579.2.387Rrvykqq05962903 2.840.1.303579.3.579.2.531 Cddrtrm13137848 2.840.1.314897.3.579.2.531 Social History DateTypeDetailFacilityStart: 09-29-2021 End: 76-24-5787Pkkqexx smoking status NHISNever smoked tobaccoMercy Health Work Phone: start: 09-29-2021 End: 18-78-3268Zgizysg use and exposureSmokeless tobacco non-userSelect Medical Specialty Hospital - [facility] NorthAsian Food Center Health Work Phone: start: 09-29-2021 End: 19-76-5484Hidmauu intakeLifetime non-drinker (finding)[employer] Work Phone: start: 10-34-1492Vxb Assigned At BirthNot on fileSelect Medical Specialty Hospital - [facility] NorthTIDAL PETROLEUM Work Phone: start: 10-05-2023 End: 89-08-1837Oymxzpx of Social functionCincinnati Children's Hospital Medical Center Sapato.ru SystemStart: 10-05-2023 End: 70-40-0056Ldmwfav use panelMagruder Hospital SystemStart: 62-26-5420Unxzyca CommentCaffeine: 1-2 cups/day , nicole leiva [facility] ClinicsStart: 06-27-2024 End: 08-47-3268Rryvuppzm beverage intakeCurrent drinker of alcohol (finding) [facility] CenterHas the electric, gas, oil, or water Enove[employer] threatened to shut off services in your home in past 12MoYeUniversity of Wisconsin Hospital and Clinics SystemDo you belong to any clubs or organizations such as bahai groups, unions, fraternal or athletic groups, or school groups?NoPGalion Community HospitalAre you now , , , , never or living with a partner? [facility] SystemHow often to you have a drink containing alcohol?Never [facility] SystemStart: 02-24-0281Rgq many standard drinks containing alcohol do you have on a typical day?Patient does not drinkProCarraway Methodist Medical Center Health SystemDo you feel stress - tense, restless, nervous, or anxious, or unable to sleep at night because yourmind is troubled all the time - these days [OSQ]Only a littleMagruder Hospital SystemStart: 32-33-3972Ctqqayv Commentoccasionally-once a monthMagruder Hospital SystemStart: 89-11-3550GuvKysxxo (finding)[facility] SystemStart: 09-05-2024 End: 21-64-2982Eemtyylhw beverage intakeEx-drinker (finding)[employer] SystemStart: 99-59-9273Trt Assigned At [facility] Medical Equipment Procedure CodeEquipment CodeEquipment Original TextEquipment IdentifierDates Phacoemulsification of cataract with intraocular lens implantationPosterior- chamber intraocular lens, pseudophakic [id number] FDAStart: 81-81-9873QZS ONE PEN NEEDLE TO INJECT MEDICATION SIX TIMES A [id number]: 70-25-3618VLR ONE PEN NEEDLE TO INJECT MEDICATION SIX TIMES A [id number]: 62-81-8983Ydy as [id number]: 01-08-2025 Goals DatePatient GoalDesired Activity/StatePersonal health goalComment on above: Evaluation of progress towards goal: In progress: Home with oxygen tomorrow. DC to home with oxygen today. DOC Taylor, 12/22/2023, 10:51 AMPersonmd health goalComment on above: Evaluation of progress towards goal: Patient plans to return home with self care.Personal health goalComment on above: Evaluation of progress towards goal: Home with family support. Clinical Notes 09-29-2021 to 07-07-2025 Note Date & YhogKmmbKvjzowjb52-03-8976 History of Present illness Narrative* Chasidy Lai PA-C - 07/07/2025 9:30 AM EST Carissa Alla Santos Date of visit: 07/07/2025 Date of : 1980 Age: 44 y.o. Patient Active Problem List Diagnosis Hyperglycemia Chest wall pain Type 2 diabetes mellitus with hyperglycemia, with long-term current use of insulin ([facility] Mild developmental delay Obstructive sleep apnea syndrome Hyperlipidemia associated with type 2 diabetes mellitus ([facility]) Abnormal ECG during exercise stress test Mediastinal lymphadenopathy Acute cystitis without hematuria Pulmonary nodule Dyspnea on exertion Moderate persistent asthma without complication Chronic hypoxic respiratory failure ([facility]) BMI 40.0-44.9, adult ([facility]) Pulmonary hypertension ([facility]) COPD (chronic obstructive pulmonary disease) ([facility]) Chronic heart failure with preserved ejection fraction ([facility]) Dyslipidemia Edema Gastroesophageal reflux disease HTN (hypertension) Allergies Allergen Reactions Sulfamethoxazole-Trimethoprim Hives, Itching and Other (See Comments) Current Outpatient Medications Medication Sig Dispense Refill albuterol (PROVENTIL HFA;VENTOLIN HFA) 90 mcg/actuation inhaler Inhale 2 puffs every 6 (six) hours as needed for wheezing or shortness of breath. 18 g 0 albuterol (PROVENTIL,VENTOLIN) 2.5 mg /3 mL (0.083 %) nebulizer solution Inhale 3 mL (2.5 mg total)by nebulization 4 (four) times a day as needed for wheezing. 75 mL 12 atorvastatin (LIPITOR) 40 mg tablet Take 1 [...] mg total) by mouth in the morning. (Patient taking differently: Take 2.5 tablets (25 mg total) by mouth in the morning.) 90 tablet 3 FREESTYLE CRYSTAL 14 DAY SENSOR kit furosemide (LASIX) 20 mg tablet Take 1 tablet (20 mg total) by mouth daily. (Patient taking differently: Take 2 tablets (40 mg total) by mouth daily.) 90 tablet 3 insulin aspart U-100 (NovoLOG) [...] evening. Take with meals. 30 tablet 0 ondansetron ODT (ZOFRAN ODT) 4 mg disintegrating tablet Dissolve 1 tablet (4 mg total) on tongue every 8 (eight) hours as needed for nausea for up to 10 doses. 10 tablet 0 pantoprazole (PROTONIX) 40 mg EC [...] puff in the morning. 60 each 11 TRULICITY 0.75 mg/0.5 mL pen injector INJECT 0.75 MG SUBCUTANEOUSLY ONCE WEEKLY tirzepatide (MOUNJARO) 5 mg/0.5 mL pen injector Inject 5 mg under the skin every 7 days. (Patient not taking: Reported on 07/07/2025) 6 mL 3 No current facility-administered medications for this visit. Chief Complaint Patient presents with Follow-up Congestive Heart Failure Pre-op Exam Knee Arthroscope, not yet sched, Dr Jackson History of Present Illness Patient is a 44-year-old female with a past medical history of type 2 diabetes mellitus, hyperlipidemia, chronic shortness of breath, CTA of the coronaries on 08/2023 with calcium score of 0, preserved EF, mild pulmonary hypertension, chronic heart failure with preserved ejection fraction At this visit, no cp, no sob rest, some, some sob when walks too far, about 400 feet. States that her breath comes back quickly with rest. No palpitations, swelling has been well controlled. No lightheadedness or dizziness. Wears oxygen at night and as needed now. Past Medical History: Diagnosis Date Anxiety Deep vein thrombosis (CMS-HCC) Dental disease no teeth Depression Diabetes mellitus type I (CMS-HCC) Elevated cholesterol GERD (gastroesophageal reflux disease) Hyperlipidemia Hypertension Lymphadenopathy 2023 MR (mental retardation) Obesity Panic disorder Visual impairment No data recorded No data recorded No data recorded Past Surgical History: Procedure Laterality Date Cardiac Invasive N/A 06/26/2024 Performed by Harinder Estrella MD at [facility] CARDIAC CATH LABS CHOLECYSTECTOMY COLONOSCOPY 2021 COLONOSCOPY DIAGNOSTIC / SCREENING N/A 09/12/2024 Performed by Aliya Solorzano DO at [facility] ENDO[facility] ULTRASOUND BRONCHOSCOPY N/A 11/22/2023 Performed by Libby Finley MD at [facility] Right heart cath N/A 06/26/2024 Performed by Harinder Estrella MD at [facility] CARDIAC CATH LABS TONSILLECTOMY TUBAL LIGATION Bilateral [...] at all Food Insecurity: No Food Insecurity (07/07/2025) Hunger Screening Food Insecurity - Worry: Never True Food Insecurity - Inability: Never True Transportation Needs: No Transportation Needs (07/21/2024) PRAPARE - Transportation Lack of Transportation (Medical): No Lack of Transportation (Non-Medical): No Physical Activity: Insufficiently Active (12/20/2023) Exercise Vital Sign Days of Exercise per Week: 3 days Minutes of Exercise per Session: 10 min Stress: No Stress Concern Present (12/20/2023) [employer] - Occupational Stress Questionnaire Feeling of Stress : Only a little Social Connections: Moderately Isolated (12/20/2023) Social Connection and Isolation Panel Frequency of Communication with Friends and Family: More than three times a week Frequency of Social Gatherings with Friends and Family: More than three times a week Attends Je[employer] Services: Never Active Member of Clubs or Organizations: No Attends Club or Organization Meetings: Never Marital Status: Interpersonal Safety: Not At Risk (07/21/2024) Humiliation, Afraid, Rape, and Kick questionnaire Fear of Current or Ex-Partner: No Emotionally Abused: No Physically Abused: No Sexually Abused: No Housing Instability: Low Risk (07/21/2024) Housing Instability Housing Instability: No Review of Systems Review of Systems Constitutional: Negative for chills, fever and malaise/fatigue. HENT: Negative for hearing loss, hoarse voice and nosebleeds. Eyes: Negative for blurred vision, double vision and redness. Respiratory: Negative for shortness of breath and sleep disturbances due to breathing. Endocrine: Negative for cold intolerance and heat intolerance. Hematologic/Lymphatic: Negative for bleeding problem. Does not bruise/bleed easily. Skin: Negative for color change, flushing, itching and nail changes. Musculoskeletal: Negative for falls, joint pain, joint swelling and myalgias. Gastrointestinal: Negative for heartburn, hematochezia and melena. Genitourinary: Negative for dysuria, frequency and hematuria. Neurological: Negative for dizziness, focal weakness, light-headedness, loss of balance and weakness. Psychiatric/Behavioral: Negative for altered mental status and memory loss. CARDIOVASCULAR: Please review HPI. Physical Examination General appearance: Alert, oriented and cooperative. In no acute distress. Skin: Warm and dry to touch. Head: Normocephalic, without obvious abnormality, atraumatic. Ears, Nose, Mouth, Throat: Throat clear without erythema or exudate. Dentition intact. Eyes: Conjunctivae unremarkable, EOM intact. Neck: No JVD Respiratory: Clear to auscultation bilaterally, no use of accessory muscles. Cardiovascular: RRR with normal S1 and S2 with no murmurs. Gastrointestinal: Soft, non-tender Musculoskeletal: No peripheral edema. Neurologic: Oriented to time, person and place, affect appropriate. No focal/major motor defects noted. Psychiatric: Appropriate mood, memory and judgement. VITAL SIGNS: BP 116/78 Pulse 92 Ht 154.9 cm (5' 1 ) Wt 101.6 kg (224 lb) BMI 42.32 kg/m Orders Placed or Reconciled This Encounter Medications TRULICITY 0.75 mg/0.5 mL pen injector Sig: INJECT 0.75 MG SUBCUTANEOUSLY ONCE WEEKLY There are no discontinued medications. IMPRESSIONS/PLAN 1. Pure hypercholesterolemia - continue atorvastatin due for repeat lipid 2. Chronic heart failure with preserved ejection fraction (CMS-HCC) -euvolemic on physical exam continue with low-dose Marco A, empagliflozin and furosemide -discuss to check blood pressures at least once a week and call if SBP rhythm 140, diastolic greater than 90 3. Type 2 diabetes mellitus -uncontrolled previously A1c of 12, has been trying to improves this for her orthopedic procedure. 4. CTA of the coronaries with calcium score of 0 with no stenosis or plaque 08/2023 5. JOSE M 6. Chronic hypoxic respiratory failure -on oxygen at night with reduced DLCO on PFT 7. Right upper lobe pulmonary nodule with negative PET 8. Right heart catheterization on 06/27 with mild pulmonary hypertension that like secondary to obesity and JOSE M 9. Obesity -I discussed increased ambulation with while walking activities Patient is currently doing well from a cardiovascular standpoint, will have her follow up in 6 months or sooner as needed seen with Dr. Rose in the office and readily available. TODAYS ORDERS Orders Placed This Encounter Procedures Lipid panel FOLLOW UP Return in about 6 months (around 01/04/2026). PCP: DIAZ DALTON MD Referring Physician: Diaz Dalton MD [address] [place] [place] [address] Chasidy Lai PA-C 07/07/25 0954 documented in this encounterSt Johnsbury HospitalCarbon Salon [id number] Instructions* Patient Instructions* Chasidy Lai PA-C - 07/07/2025 9:30 AM EST Record blood pressure and heart rate 1 time per week. Call if systolic (top) number is consistentlygreater than 140 or less than 100 or diastolic (bottom) number is consistently greater than 90. Call if heart rate is consistently greater than 110 or less than 50. Lipid panel when able to Follow up in 6 months documented in this encounterSumma Health [facility]10-31-2025 Miscellaneous Notes* Telephone Encounter - Bethanie Ro MA - 07/04/2025 1:51 PM EDT Called patient to remind them to bring their most current copy of their medication list with them to their appt. Patient verbalizes understanding. ROMEOW documented in this encounterSumma Health W[facility]10-31-2025 Telephone encounter Note* Telephone Encounter - Bethanie Ro MA - 07/04/2025 1:51 PM EDT Called patient to remind them to bring their most current copy of their medication list with them to their appt. Patient verbalizes understanding. JLW [facility]10-06-2025 Miscellaneous Notes* Telephone Encounter - Maria C Bailey RN - 06/09/2025 10:47 AM EDT Surgeon: DR. Feliz Benz Type of surgery: Diagnostic Laproscopy w/ genital wart removal : Poss ANNE, Poss FOE, Poss BSO Date of surgery: 06/19/25 Surgery location: [place] Type of anesthesia: General On a blood [...] Preop clearance letter per LLD faxed via [employer] to Dr. Lagos office. Fax confirmed sent via [employer] documented in this encounterSumma Health W[facility] Center10-06-2025 Telephone encounter Note* Telephone Encounter - Maria C Bailey RN - 06/09/2025 10:47 AM EDT Surgeon: DR. Feliz Benz Type of surgery: Diagnostic Laproscopy w/ genital wart removal : Poss ANNE, Poss FOE, Poss BSO Date of surgery: 06/19/25 Surgery location: [place] Type of anesthesia: General On a blood thinner?: N/A On an antiplatelet?: N?A Date of last EK06/05/25- Preop Last office visit date and who they saw: 01/03/25- LLD Opt 3 Clearance requested due to abnormal preop EKG.. [facility]10-06-2025 Telephone encounter Note* Telephone Encounter - Katelyn Recio MD - 06/09/2025 10:47 AM EDT [facility] HospitalJsusoa06-60-2874 Telephone encounter Note* Telephone Encounter - Jorge L Givens RN - 06/09/2025 10:47 AM EDT Preop clearance letter per LLD faxed via [employer] to Dr. Lagos office. Fax confirmed sent via [employer] [id number] Evaluation note* Diagnosis Onset Date Resolution Status [...] with long-term current use ofacuteOctober 2024 10:48am [facility] Work Phone: [phone] 575-623209-30-2025 History of Present illness Narrative* ROSAURA Rosado [...] Morbid obesity with BMI of 40.0-44.9, adult ([facility]) Nocturnal hypoxemia Nonsmoker OAB (overactive bladder) Obesity JOSE M (obstructive sleep apnea) Postoperative urinary retention Primary osteoarthritis of left knee Seasonal allergies Type 2 diabetes mellitus with diabetic polyneuropathy, with long-term current use of insulin (HCC) Type 2 diabetes mellitus with hyperglycemia, with long-term current use of insulin (HCC) Type 2 diabetes mellitus without complication (HCC) Vitamin D deficiency PAST SURGICAL HISTORY: Past [...] 12/29/2017 Diagnostic laparoscopy LAPAROTOMY OVARIAN CYSTECTOMY 03/31/2023 [place] ARTHROCENTESIS ASPIR&/INJ MAJOR JT/BURSA W/O US Right [...] (CELEXA) 40 mg, Oral, Daily Continuous Glucose Carton Inspector (FreeStyle Crystal 3 [place]) device 1 Application, Does not apply, Continuous Continuous Glucose Sensor (FreeStyle Crystal 3 Sensor) [facility] USE TO MONITOR BLOOD SUGAR [...] UNITS DAILY* insulin pen needle (Droplet Pen [place] Joseph) 32G x 4 mm [facility] Use as instructed lamoTRIgine (LAMICTAL) [...] and proposed surgery scheduled. SURGERY INSTRUCTIONS NEEDS [facility] EXERCISES GIVEN Follow up in about 5 weeks (around 07/10/2025) for Post-Op July 10 @ 1:00 in [place] with Barry. documented in this [facility]09-25-2025 Telephone encounter Note* Telephone Encounter - Mary Shane - 05/29/2025 3:58 PM EDT Gynecology scheduled her for a procedure 06/20/25 & is scheduled for knee scope 06/26/[address] Jackson Asking if this is ok to have both in this time period? [facility] [id number] Miscellaneous Notes* Telephone Encounter - Mary Shane - 05/29/2025 3:58 PM EDT Gynecology scheduled her for a procedure 06/20/25 & is scheduled for knee scope 06/26/[address] Jackson Asking if this is ok to have both in this time period? documented in this [facility]09-22-2025 History of Present illness Narrative* Talisha Johnson - 05/26/2025 1:20 PM EDT Reason for Appointment: Patient ID: Carissa Santos is a 44 y.o. female who presents for Pre-op Visit Patient presents today for Pre Op appointment. Patient is scheduled to undergo Diagnostic Laparoscopy, possible ANNE, possible FOE, possible BSO and genital wart removal on 06-20-[address] Benz at [facility]. MEDICATIONS Current Outpatient Medications Medication Instructions [...] (CELEXA) 40 mg, Oral, Daily Continuous Glucose Carton Inspector (FreeStyle Crystal 3 [place]) device 1 Application, Does not apply, Continuous [...] UNITS DAILY* insulin pen needle (Droplet Pen [employer] Joseph) 32G x 4 mm misc Use as [...] heart failure with preserved ejection fraction (HFpEF) ([facility]) 04/06/2023 Equinus deformity of left foot 04/06/2023 Gastroesophageal reflux disease 04/06/2023 Genital warts 04/06/2023 Hot flashes due to menopause 04/06/2023 Type 2 diabetes mellitus with microalbuminuria, with long-term current use of insulin ([facility]) 04/06/2023 Internal derangement of left shoulder 04/06/2023 Irritable bowel syndrome with diarrhea 04/06/2023 Mild developmental delay 09/29/2021 Migraine without aura and without status migrainosus, not intractable 04/06/2023 Mild episode of recurrent major depressive disorder 04/06/2023 Class 3 severe obesity due to excess calories with serious comorbidity and body mass index (BMI) of40.0 to 44.9 in adult ([facility]) 11/21/2022 Type 2 diabetes mellitus with polyneuropathy ([facility]) 06/10/2021 Obstructive sleep apnea syndrome 09/30/2009 Osteoarthritis of knee 04/06/2023 Overactive bladder 04/06/2023 Panic disorder without agoraphobia 11/12/2009 Dyslipidemia 04/22/2010 Spondylosis without myelopathy 08/10/2010 Obesity hypoventilation syndrome ([facility]) 01/04/2024 Benign essential hypertension 01/04/2024 Right carpal tunnel syndrome 01/04/2024 Type 2 diabetes mellitus with hyperglycemia, with long-term current use of insulin ([facility]) 02/12/2024 Moderate persistent asthma without complication ([facility]) 02/19/2024 Pulmonary hypertension ([facility]) 08/06/2024 Dehydration 10/28/2024 Nausea & vomiting 10/28/2024 Encounter for long-term (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 medications 02/10/2025 Resolved Ambulatory Problems Diagnosis Date Noted Acute kidney injury (DREW) with acute tubular necrosis (ATN) 09/30/2021 Acute pain of left shoulder 04/06/2023 Shoulder joint pain 04/06/2021 Carpal tunnel syndrome of left wrist 04/06/2023 Convulsions in the ([facility]) 09/30/2009 Cubital tunnel syndrome on left 11/04/2022 Fecal incontinence 06/22/2016 High anion gap metabolic acidosis 09/30/2021 Hyperglycemia 03/01/2019 Mild intellectual disability 09/30/2009 Other chronic pain 04/06/2023 Pneumonia due to infectious organism 09/29/2021 Poorly controlled diabetes mellitus ([facility]) 08/10/2015 Normal gynecologic examination 06/09/2015 Missed period 04/06/2023 DKA, type 1, not at goal ([facility]) 09/27/2021 Type 2 diabetes mellitus ([facility]) 09/30/2009 Cavitary lesion of lung 08/10/2023 Other chest pain 08/10/2023 Hypoxia 01/04/2024 Chronic hypoxic respiratory failure ([facility]) 02/19/2024 Acute pain of right knee 05/29/2024 [...] Morbid obesity with BMI of 40.0-44.9, adult ([facility]) Nocturnal hypoxemia Nonsmoker OAB (overactive bladder) Obesity JOSE M (obstructive sleep apnea) Postoperative urinary retention Primary osteoarthritis of left knee Seasonal allergies Type 2 diabetes mellitus with diabetic polyneuropathy, with long-term current use of insulin ([facility]) Type 2 diabetes mellitus without complication ([facility]) Vitamin D deficiency HISTORY PAST MEDICAL HISTORY SOCIAL HISTORY Past Medical History: Diagnosis Date Ankle fracture Anxiety and depression At low risk for fall Bilateral leg edema Chest pain, central Chronic left shoulder pain Chronic pain Chronic respiratory failure (HCC) Dyslipidemia Epilepsy ([facility]) Childhood epilepsy JOHN (generalized anxiety disorder) Genital warts GERD (gastroesophageal reflux disease) History of being hospitalized pneumonia, diabetes, infection [10/29/21-11/05/21] History of medical problems mild mental retardation Hyperlipidemia Insomnia, persistent Irritable bowel syndrome with diarrhea MDD (major depressive disorder), recurrent episode, mild Migraine without aura and without status migrainosus, not intractable Morbid obesity with BMI of 40.0-44.9, adult ([facility]) Nocturnal hypoxemia Nonsmoker OAB (overactive bladder) Obesity JOSE M (obstructive sleep apnea) Postoperative urinary retention Primary osteoarthritis of left knee Seasonal allergies Type 2 diabetes mellitus with diabetic polyneuropathy, with long-term current use of insulin ([facility]) Type 2 diabetes mellitus with hyperglycemia, with long-term current use of insulin ([facility]) Type 2 diabetes mellitus without complication ([facility]) Vitamin D deficiency Social History Tobacco Use [...] 12/29/2017 Diagnostic laparoscopy LAPAROTOMY OVARIAN CYSTECTOMY 03/31/2023 [place] ARTHROCENTESIS ASPIR&/INJ MAJOR JT/BURSA W/O US Right [...] reviewed, and patient is to proceed to [facility] OR. Follow Up: Patient is to follow up between 1-2 weeks post operative to assess proper healing and recovery fromprocedure. Documented by Arlene Mullen LPN on behalf of: Feliz Benz DO documented in this encounterCameron Regional Medical [id number] Miscellaneous Notes* Telephone Encounter - MOIZ Andrew - 05/14/2025 2:38 PM EDT Updated oxygen therapy order, home oxygen evaluation results, and office note faxed directly to [facility] Financial Planning Advisor Valeriy and Octave Board Racker Linda via email. documented in this encounterSumma Health [facility]09-10-[facility]25 Telephone encounter Note* Telephone Encounter - MOIZ Andrew - 05/14/2025 2:38 PM EDT Updated oxygen therapy order, home oxygen evaluation results, and office note faxed directly to [facility] Financial Planning Advisor Valeriy and Octave Board Racker Linda via email. [facility] [employer] [id number] History of Present illness Narrative* Pacheco Madrigal APRN-DRAGLINE MECHANIC - 05/14/2025 12:00 PM EDT Chief Complaint: [...] plans to get a hold of her Digital Guardian to pick it up. She denies any [...] 3 FREESTYLE CRYSTAL 14 DAY SENSOR kit, , Disp: [...] min Stress: No Stress Concern Present (12/20/2023) [employer] - Occupational Stress Questionnaire Feeling of Stress : Only a little Social Connections: Moderately Isolated (12/20/2023) Social Connection and Isolation Panel [NHANES] Frequency of Communication with Friends and Family: More than three times a week Frequency of Social Gatherings with Friends and Family: More than three times a week Attends Jehov[employer] Witness Services: Never Active Member of Clubs or [...] our office a call. CC: MD Pacheco BULL [facility] Office: [phone] 12:12 PM on 05/14/2025 This note is dictated with the use of M*Modal.Please note that this dictation was completed with computer voice recognition software. Quite often unanticipated grammatical, syntax, homophones, and other interpretive errors are inadvertently transcribed by the computer software. Please disregard these errors. Please excuse any errors that have escaped final proofreading. DUSTIN Quarles 05/14/25 1217 documented in this encounterSumma Health Wadsworth [facility] Center09-10-2025 Instructions* Patient Instructions* DUSTIN Quarles - 05/14/2025 12:00 PM EDT If you re looking for general health and wellness resources, please visit [email or web address]. documented in this encounterSumma Health Wadsworth [facility] Center09-03-2025 History of Present illness Narrative* Shania Lopez [...] PAP therapy at nighttime. documented in this encounterSumma Health Wadsworth - [facility]itt[facility] Center09-03-2025 Miscellaneous Notes* Telephone Encounter - MOIZ Andrew - 05/07/2025 4:35 PM EDT ----- Message from GEORGINA Douglas sent at 05/08/2025 10:09 AM EDT ----- Silvia - can you please complete ThanksAle ----- Message ----- From: Shania Lopez MD [...] MOIZ Andrew - 05/07/2025 4:35 PM EDT Linux System Administrator called patient and asked if patient used her PAP therapy during her Home O2 Evaluation, patient stated that she did not as she does not have a table next to her bed to set it on. * Telephone Encounter - MOIZ Andrew - 05/07/2025 4:35 PM EDT Linux System Administrator called [facility] and spoke with Autumn to confirm that the updated oxygen order needs to include the bleed-in adapter in the equipment, Autumn confirmed that the bleed-in adapter does need audrey included on the order. Autumn had asked if patient had an office visit within the last 30 days prior to her testing, editorial writer stated that patient had not been seen since 03/13/2025, Autumn stated thatthe testing would not be good and that patient needs to be seen prior to testing for insurance to accept. Linux System Administrator called [facility] and spoke with Robe, per Robe, they will take the order with the updated testing as long as patient was seen within the last 12 months. Robe did state that patient has used them in the past and does owe them $399 however they can set up a payment plan with patient if she chooses to switch. Linux System Administrator spoke with MERLIN via phone and explained the information above to see if she could see patient on 05/14/2025 when she is back in the [place] location. Per MERLIN, she is willing to see patient to provide updated office note to support patient's recent home O2 evaluation. Linux System Administrator called dahiana (Octave Board Racker) with [facility] asking her to look into this and to confirm if patient needs an appointment or if her office notes from 03/13/2025 are sufficient, Dahiana stated that she would get back with our office as soon as possible to help resolve this issue. Linux System Administrator called patient and in formed her of all the information above, patient understands what her options are, patient stated that she is unsure if she can get a ride to the appointment on Monday but stated that she would call us back once knows, editorial writer verbalized understanding and held spot for patient on 05/14/2025 at noon. * Telephone Encounter - MOIZ Andrew - 05/07/2025 4:35 PM EDT Updated oxygen therapy order, home oxygen evaluation results, and office note faxed directly to [facility]'s Financial Planning Advisor Valeriy and Octave Board Racker Dahiana via email. documented in this encounterSumma Health Wad[facility]09-03-2025 Telephone encounter Note* Telephone Encounter - MOIZ [...] 3:51 PM EDT To: Lindsay Arrieta DO [facility] [employer] [id number] Telephone encounter Note* Telephone Encounter - MOIZ Andrew - 05/07/2025 4:35 PM EDT Linux System Administrator called patient and asked if patient used her PAP therapy during her Home O2 Evaluation, patient stated that she did not as she does not have a table next to her bed to set it on. [facility]09-03-2025 Telephone encounter Note* Telephone Encounter - MOIZ Andrew - 05/07/2025 4:35 PM EDT Linux System Administrator called [facility] and spoke with Autumn to confirm that the updated oxygen order needs to include the bleed-in adapter in the equipment, Autumn confirmed that the bleed-in adapter does need audrey included on the order. Autumn had asked if patient had an office visit within the last 30 days prior to her testing, editorial writer stated that patient had not been seen since 03/13/2025, Autumn stated thatthe testing would not be good and that patient needs to be seen prior to testing for insurance to accept. Linux System Administrator called [facility] and spoke with Robe, per Robe, they will take the order with the updated testing as long as patient was seen within the last 12 months. Robe did state that patient has used them in the past and does owe them $399 however they can set up a payment plan with patient if she chooses to switch. Linux System Administrator spoke with SK via phone and explained the information above to see if she could see patient on 05/14/2025 when she is back in the [place] location. Per , she is willing to see patient to provide updated office note to support patient's recent home O2 evaluation. Linux System Administrator called dahiana (Octave Board Racker) with [facility] asking her to look into this and to confirm if patient needs an appointment or if her office notes from 03/13/2025 are sufficient, Dahiana stated that she would get back with our office as soon as possible to help resolve this issue. Linux System Administrator called patient and in formed her of all the information above, patient understands what her options are, patient stated that she is unsure if she can get a ride to the appointment on Monday but stated that she would call us back once knows, editorial writer verbalized understanding and held spot for patient on 05/14/2025 at noon. [facility]-2025 Telephone encounter Note* Telephone Encounter - MOIZ Andrew - 05/07/2025 4:35 PM EDT Updated oxygen therapy order, home oxygen evaluation results, and office note faxed directly to [facility]'s Financial Planning Advisor Valeriy and Octave Board Racker Dahiana via email. [facility] [id number] Miscellaneous Notes* Telephone Encounter - MOIZ Andrew - 05/01/2025 1:01 PM EDT Linux System Administrator called patient and informed her that per [facility], they need updated testing for patientto continue her oxygen therapy, editorial writer provided patient with [facility] Monitor Program Homo Pulse Ox Testing contact information. Patient verbalized understanding. Patient had stated that at her last visit on 03/13/2025, SE had mentioned that patient should be using a nebulizer, patient reports that she does not have a nebulizer and needs an order for one alongwith the medication to be sent to [facility], editorial writer informed patient that SE is out of [...] Nebulizer order and supportive documentation faxed to [facility]. documented in this encounterSumma Health Wad[facility]08-28-2025 Telephone encounter Note* Telephone Encounter - MOIZ Andrew - 05/01/2025 1:01 PM EDT Linux System Administrator called patient and informed her that per [facility], they need updated testing for patientto continue her oxygen therapy, editorial writer provided patient with [facility] Monitor Program Homo Pulse Ox Testing contact information. Patient verbalized understanding. Patient had stated that at her last visit on 03/13/2025, SE had mentioned that patient should be using a nebulizer, patient reports that she does not have a nebulizer and needs an order for one alongwith the medication to be sent to [facility], editorial writer informed patient that SE is out of theoffice this afternoon however a message would be sent to her to review when she returns, patient verbalized understanding. [facility]08-28-2025 Telephone encounter Note* Telephone Encounter - Lindsay Arrieta DO - 05/01/2025 1:01 PM EDT Patient stated at last visit that she had a nebulizer and plenty of aerosols which was emphasized. If she does not have will need home nebulizer and solution. [facility]08-28-2025 Telephone encounter Note* Telephone Encounter - MOIZ Andrew - 05/01/2025 1:01 PM EDT Nebulizer order and supportive documentation faxed to [facility]. [facility]08-20-2025 Telephone encounter Note* Telephone Encounter - Tracy [...] asking what we recommend now. Please advise [facility] Medical [id number] Miscellaneous Notes* Telephone Encounter - Tracy Olivera [...] recommend now. Please advise documented in this encounterCameron Regional Medical [id number] History of Present illness Narrative* Jr. Harinder Jackson, - 04/22/2025 10:00 AM EDT Images from [...] PT FELL AND LANDED ON KNEE- DR SHA FELIX; MILDRED ALLERGIES: Allergies Allergen Reactions Sulfamethoxazole-Trimethoprim Hives [...] (CELEXA) 40 mg, Oral, Daily Continuous Glucose Carton Inspector (FreeStyle Crystal 3 [place]) device 1 Application, Does not apply, Continuous Continuous Glucose Sensor (FreeStyle Crystal 3 Sensor) [facility] USE TO MONITOR BLOOD SUGAR [...] UNITS DAILY* insulin pen needle (Droplet Pen [place]) 32G x 4 mm [facility] Use as instructed lamoTRIgine (LAMICTAL) [...] Use: Not At Risk (12/20/2023) [facility] Frequency of Alcohol Consumption: Never Average [...] mamta left knee. We have talked her autopsy pathologist to ensure that she signs her own [...] for requiring urgent evaluation. documented in this encounterCameron Regional Medical [id number] History of Present illness Narrative* Romana Whitmore [...] (CELEXA) 40 mg, Oral, Daily Continuous Glucose Carton Inspector (FreeStyle Crystal 3 [place]) device 1 Application, Does not apply, Continuous Continuous Glucose Sensor (FreeStyle Crystal 3 Sensor) [facility] USE TO MONITOR BLOOD SUGAR [...] UNITS DAILY* insulin pen needle (Droplet Pen [place]) 32G x 4 mm misc Use as [...] heart failure with preserved ejection fraction (HFpEF) ([facility]) 04/06/2023 Equinus deformity of left foot 04/06/2023 Gastroesophageal reflux disease 04/06/2023 Genital warts 04/06/2023 Hot flashes due to menopause 04/06/2023 Type 2 diabetes mellitus with microalbuminuria, with long-term current use of insulin ([facility]) 04/06/2023 Internal derangement of left shoulder 04/06/2023 Irritable bowel syndrome with diarrhea 04/06/2023 Mild developmental delay 09/29/2021 Migraine without aura and without status migrainosus, not intractable 04/06/2023 Mild episode of recurrent major depressive disorder 04/06/2023 Class 3 severe obesity due to excess calories with serious comorbidity and body mass index (BMI) of40.0 to 44.9 in adult ([facility]) 11/21/2022 Type 2 diabetes mellitus with polyneuropathy ([facility]) 06/10/2021 Obstructive sleep apnea syndrome 09/30/2009 Osteoarthritis of knee 04/06/2023 Overactive bladder 04/06/2023 Panic disorder without agoraphobia 11/12/2009 Dyslipidemia 04/22/2010 Spondylosis without myelopathy 08/10/2010 Obesity hypoventilation syndrome ([facility]) 01/04/2024 Benign essential hypertension 01/04/2024 Right carpal tunnel syndrome 01/04/2024 Type 2 diabetes mellitus with hyperglycemia, with long-term current use of insulin ([facility]) 02/12/2024 Moderate persistent asthma without complication ([facility]) 02/19/2024 Pulmonary hypertension ([facility]) 08/06/2024 Dehydration 10/28/2024 Nausea & vomiting 10/28/2024 Encounter for long-term (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 medications 02/10/2025 Resolved Ambulatory Problems Diagnosis Date Noted Acute kidney injury (DREW) with acute tubular necrosis (ATN) 09/30/2021 Acute pain of left shoulder 04/06/2023 Shoulder joint pain 04/06/2021 Carpal tunnel syndrome of left wrist 04/06/2023 Convulsions in the ([facility]) 09/30/2009 Cubital tunnel syndrome on left 11/04/2022 Fecal incontinence 06/22/2016 High anion gap metabolic acidosis 09/30/2021 Hyperglycemia 03/01/2019 Mild intellectual disability 09/30/2009 Other chronic pain 04/06/2023 Pneumonia due to infectious organism 09/29/2021 Poorly controlled diabetes mellitus ([facility]) 08/10/2015 Normal gynecologic examination 06/09/2015 Missed period 04/06/2023 DKA, type 1, not at goal ([facility]) 09/27/2021 Type 2 diabetes mellitus ([facility]) 09/30/2009 Cavitary lesion of lung 08/10/2023 Other chest pain 08/10/2023 Hypoxia 01/04/2024 Chronic hypoxic respiratory failure (HCC) 02/19/2024 Acute pain of right knee 05/29/2024 Past Medical History: Diagnosis Date Ankle fracture Anxiety and depression At low risk for fall Bilateral leg edema Chest pain, central Chronic left shoulder pain Chronic pain Chronic respiratory failure ([facility]) Epilepsy ([facility]) GERD (gastroesophageal reflux disease) History of being hospitalized History of medical problems Hyperlipidemia Insomnia, persistent MDD (major depressive disorder), recurrent episode, mild Morbid obesity with BMI of 40.0-44.9, adult ([facility]) Nocturnal hypoxemia Nonsmoker OAB (overactive bladder) Obesity JOSE M (obstructive sleep apnea) Postoperative urinary retention Primary osteoarthritis of left knee Seasonal allergies Type 2 diabetes mellitus with diabetic polyneuropathy, with long-term current use of insulin ([facility]) Type 2 diabetes mellitus without complication ([facility]) Vitamin D deficiency HISTORY PAST MEDICAL HISTORY SOCIAL HISTORY Past Medical History: Diagnosis Date Ankle fracture Anxiety and depression At low risk for fall Bilateral leg edema Chest pain, central Chronic left shoulder pain Chronic pain Chronic respiratory failure ([facility]) Dyslipidemia Epilepsy ([facility]) Childhood epilepsy JOHN (generalized anxiety disorder) Genital warts GERD (gastroesophageal reflux disease) History of being hospitalized pneumonia, diabetes, infection [10/29/21-11/05/21] History of medical problems mild mental retardation Hyperlipidemia Insomnia, persistent Irritable bowel syndrome with diarrhea MDD (major depressive disorder), recurrent episode, mild Migraine without aura and without status migrainosus, not intractable Morbid obesity with BMI of 40.0-44.9, adult ([facility]) Nocturnal hypoxemia Nonsmoker OAB (overactive bladder) Obesity JOSE M (obstructive sleep apnea) Postoperative urinary retention Primary osteoarthritis of left knee Seasonal allergies Type 2 diabetes mellitus with diabetic polyneuropathy, with long-term current use of insulin ([facility]) Type 2 diabetes mellitus with hyperglycemia, with long-term current use of insulin ([facility]) Type 2 diabetes mellitus without complication ([facility]) Vitamin D deficiency Social History Tobacco Use [...] TUNNEL RELEASE Right 06/17/2024 Dr Miller CHOLECYSTECTOMY 2010 CT ANGIOGRAM HEART CORONARY 09/27/2021 CT ANGIOGRAM TAVR 09/27/2021 CT ANGIOGRAM HEART CORONARY 08/08/2023 CT ANGIOGRAM HEART CORONARY 08/08/2023 LAPAROSCOPIC TUBAL LIGATION W/ FILCHIE CLIPS 12/29/2017 LAPAROSCOPY DIAGNOSTIC / BIOPSY / ASPIRATION / LYSIS 12/29/2017 Diagnostic laparoscopy LAPAROTOMY OVARIAN CYSTECTOMY 03/31/2023 [place] ARTHROCENTESIS ASPIR&/INJ MAJOR JT/BURSA W/O US Right [...] nursing note reviewed. Exam conducted with a medical secretary receptionist present. Vitals: Estimated body mass index is [...] genital warts. Patient to setup date with [employer] prior to leaving office today. Documented by Romana Whitmore NP on behalf of: Feliz Benz DO documented in this [facility]08-04-2025 Telephone encounter Note* Telephone Encounter - Mila Cavanaugh - 04/07/2025 8:02 AM EDT She called and lm noting not feeling well this morning; she cx her PT for today. [facility] [id number] Miscellaneous Notes* Telephone Encounter - Mila Cavanaugh - 04/07/2025 8:02 AM EDT She called and lm noting not feeling well this morning; she cx her PT for today. documented in this [facility]07-25-2025 Telephone encounter Note* Telephone Encounter [...] Will call back with any more issues. [facility] [id number] Miscellaneous Notes* Telephone Encounter - UYEN Glover [...] stating she has physical therapy today in [place]. This would be the third session. She fels she cannot do it. She is in a lot of pain after. [phone] * Telephone Encounter - ROSAURA Rosado - [...] Jackson April 22, 2025. documented in this encounterCameron Regional Medical [id number] Telephone encounter Note* Telephone Encounter - Renetta Ferris MA - 03/28/2025 12:[address] Jackson said that if that knee does need surgery, he is unable to do surgery until that knee is moving. He strongly advises that she goes to physical therapy. [facility] [id number] Telephone encounter Note* Telephone Encounter - Mila Cavanaugh - 03/28/2025 9:36 AM EDT She called noting she has a call into Dr. Jackson, due to when she has completed PT so far, she feels 2x's worse than when she started. Pending call back, she said she'll keep her next PT scheduled 04/02; will contact if cx is needed. [facility] [id number] Miscellaneous Notes* Telephone Encounter - Mila Cavanaugh - 03/28/2025 9:36 AM EDT She called noting she has a call into Dr. Jackson, due to when she has completed PT so far, she feels 2x's worse than when she started. Pending call back, she said she'll keep her next PT scheduled 04/02; will contact if cx is needed. documented in this encounterCameron Regional Medical [id number] Telephone encounter Note* Telephone Encounter - Jessenia Donnelly - 03/28/2025 9:31 AM EDT Patient called stating she has physical therapy today in [place]. This would be the third session. She fels she cannot do it. She is in a lot of pain after. [phone] [facility] [id number] Telephone encounter Note* Telephone Encounter - ROSAURA Rosado - 03/27/2025 6:35 PM EDT Renetta & Dr. Jackson, It sounds like this pt is not tolerating recommend therapy for her knee,Possible scope? Any recommendations.? [facility] Work Phone: [phone] 590-375407-24-2025 Telephone encounter Note* Telephone Encounter - Tracy [...] scheduled with Dr. Jackson April 22, 2025. [facility] [id number] Miscellaneous Notes* Telephone Encounter - MOIZ Andrew - 03/24/2025 9:26 AM EDT Patient called office requesting a refill of her Trelegy 200 to be sent to [facility], editorial writer asked patient to confirm the phone number for [facility] as two [facility] are listed inher chart patient confirmed phone number for the pharmacy located in [place]. documented in this encounterSum[facility] Telephone encounter Note* Telephone Encounter - MOIZ Andrew - 03/24/2025 9:26 AM EDT Patient called office requesting a refill of her Trelegy 200 to be sent to [facility], editorial writer asked patient to confirm the phone number for [facility] as two [facility] are listed inher chart patient confirmed phone number for the pharmacy located in [place]. [facility]07-14-2025 History of Present illness Narrative* Arlene Mullen, PERIOPERATIVE ASSISTANT - 03/17/2025 2:30 PM EDT Reason for [...] (CELEXA) 40 mg, Oral, Daily Continuous Glucose Carton Inspector (FreeStyle Crystal 3 [place]) device 1 Application, Does not apply, Continuous Continuous Glucose Sensor (FreeStyle Crystal 3 Sensor) [facility] USE TO MONITOR BLOOD SUGAR [...] UNITS DAILY* insulin pen needle (Droplet Pen [place]) 32G x 4 mm [facility] Use as instructed lamoTRIgine (LAMICTAL) [...] heart failure with preserved ejection fraction (HFpEF) ([facility]) 04/06/2023 Equinus deformity of left foot 04/06/2023 Gastroesophageal reflux disease 04/06/2023 Genital warts 04/06/2023 Hot flashes due to menopause 04/06/2023 Type 2 diabetes mellitus with microalbuminuria, with long-term current use of insulin ([facility]) 04/06/2023 Internal derangement of left shoulder 04/06/2023 Irritable bowel syndrome with diarrhea 04/06/2023 Mild developmental delay 09/29/2021 Migraine without aura and without status migrainosus, not intractable 04/06/2023 Mild episode of recurrent major depressive disorder 04/06/2023 Class 3 severe obesity due to excess calories with serious comorbidity and body mass index (BMI) of40.0 to 44.9 in adult ([facility]) 11/21/2022 Type 2 diabetes mellitus with polyneuropathy ([facility]) 06/10/2021 Obstructive sleep apnea syndrome 09/30/2009 Osteoarthritis of knee 04/06/2023 Overactive bladder 04/06/2023 Panic disorder without agoraphobia 11/12/2009 Dyslipidemia 04/22/2010 Spondylosis without myelopathy 08/10/2010 Obesity hypoventilation syndrome ([facility]) 01/04/2024 Benign essential hypertension 01/04/2024 Right carpal tunnel syndrome 01/04/2024 Type 2 diabetes mellitus with hyperglycemia, with long-term current use of insulin ([facility]) 02/12/2024 Moderate persistent asthma without complication ([facility]) 02/19/2024 Pulmonary hypertension ([facility]) 08/06/2024 Dehydration 10/28/2024 Nausea & vomiting 10/28/2024 Encounter for long-term (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 medications 02/10/2025 Resolved Ambulatory Problems Diagnosis Date Noted Acute kidney injury (DREW) with acute tubular necrosis (ATN) 09/30/2021 Acute pain of left shoulder 04/06/2023 Shoulder joint pain 04/06/2021 Carpal tunnel syndrome of left wrist 04/06/2023 Convulsions in the ([facility]) 09/30/2009 Cubital tunnel syndrome on left 11/04/2022 Fecal incontinence 06/22/2016 High anion gap metabolic acidosis 09/30/2021 Hyperglycemia 03/01/2019 Mild intellectual disability 09/30/2009 Other chronic pain 04/06/2023 Pneumonia due to infectious organism 09/29/2021 Poorly controlled diabetes mellitus ([facility]) 08/10/2015 Normal gynecologic examination 06/09/2015 Missed period 04/06/2023 DKA, type 1, not at goal ([facility]) 09/27/2021 Type 2 diabetes mellitus ([facility]) 09/30/2009 Cavitary lesion of lung 08/10/2023 Other chest pain 08/10/2023 Hypoxia 01/04/2024 Chronic hypoxic respiratory failure ([facility]) 02/19/2024 Acute pain of right knee 05/29/2024 Past Medical History: Diagnosis Date Ankle fracture Anxiety and depression At low risk for fall Bilateral leg edema Chest pain, central Chronic left shoulder pain Chronic pain Chronic respiratory failure ([facility]) Epilepsy ([facility]) GERD (gastroesophageal reflux disease) History of being hospitalized History of medical problems Hyperlipidemia Insomnia, persistent MDD (major depressive disorder), recurrent episode, mild Morbid obesity with BMI of 40.0-44.9, adult ([facility]) Nocturnal hypoxemia Nonsmoker OAB (overactive bladder) Obesity JOSE M (obstructive sleep apnea) Postoperative urinary retention Primary osteoarthritis of left knee Seasonal allergies Type 2 diabetes mellitus with diabetic polyneuropathy, with long-term current use of insulin ([facility]) Type 2 diabetes mellitus without complication ([facility]) Vitamin D deficiency HISTORY PAST MEDICAL HISTORY SOCIAL HISTORY Past Medical History: Diagnosis Date Ankle fracture Anxiety and depression At low risk for fall Bilateral leg edema Chest pain, central Chronic left shoulder pain Chronic pain Chronic respiratory failure (HCC) Dyslipidemia Epilepsy ([facility]) Childhood epilepsy JOHN (generalized anxiety disorder) Genital warts GERD (gastroesophageal reflux disease) History of being hospitalized pneumonia, diabetes, infection [10/29/21-11/05/21] History of medical problems mild mental retardation Hyperlipidemia Insomnia, persistent Irritable bowel syndrome with diarrhea MDD (major depressive disorder), recurrent episode, mild Migraine without aura and without status migrainosus, not intractable Morbid obesity with BMI of 40.0-44.9, adult ([facility]) Nocturnal hypoxemia Nonsmoker OAB (overactive bladder) Obesity JOSE M (obstructive sleep apnea) Postoperative urinary retention Primary osteoarthritis of left knee Seasonal allergies Type 2 diabetes mellitus with diabetic polyneuropathy, with long-term current use of insulin ([facility]) Type 2 diabetes mellitus with hyperglycemia, with long-term current use of insulin ([facility]) Type 2 diabetes mellitus without complication ([facility]) Vitamin D deficiency Social History Tobacco Use [...] 12/29/2017 Diagnostic laparoscopy LAPAROTOMY OVARIAN CYSTECTOMY 03/31/2023 [place] ARTHROCENTESIS ASPIR&/INJ MAJOR JT/BURSA W/O US Right [...] nursing note reviewed. Exam conducted with a medical secretary receptionist present. Vitals: Estimated body mass index is [...] of: Feilz Benz DO documented in this encounterCameron Regional Medical [id number] History of Present illness Narrative* Jr. Harinder Jackson DO - 03/14/2025 11:30 AM EDT Images from the original note were not included. HISTORY OF PRESENT ILLNESS: EST PT Carissa Santos is an 44 y.o. @ female. (EST PT) - RECHECK LT KNEE PAIN - S/P MRI DONE AT [facility] ON 03/04/25 XRAY LT KNEE EPIC 02/25/25 [...] (CELEXA) 40 mg, Oral, Daily Continuous Glucose Carton Inspector (FreeStyle Crystal 3 [place]) device 1 Application, Does not apply, Continuous Continuous Glucose Sensor (FreeStyle Crystal 3 Sensor) [facility] USE TO MONITOR BLOOD SUGAR [...] UNITS DAILY* insulin pen needle (Droplet Pen [place]) 32G x 4 mm [facility] Use as instructed lamoTRIgine (LAMICTAL) [...] Use: Not At Risk (12/20/2023) Received from [employer] [facility] Frequency of Alcohol Consumption: Never Average [...] for requiring urgent evaluation. documented in this encounterCameron Regional Medical [id number] Miscellaneous Notes* Telephone Encounter - MOIZ Andrew - 03/13/2025 10:02 AM EDT Linux System Administrator called [facility] and spoke with Autumn, editorial writer asked Autumn to verify if patient qualified for POC, per Autumn, Medicaid does not cover POCs. Linux System Administrator verbalized understanding. documented in this encounterSumma Health [facility]07-10-2025 Telephone encounter Note* Telephone Encounter - MOIZ Andrew - 03/13/2025 10:02 AM EDT Linux System Administrator called [facility] and spoke with Autumn, editorial writer asked Autumn to verify if patient qualified for POC, per Autumn, Medicaid does not cover POCs. Linux System Administrator verbalized understanding. [facility]07-10-2025 History of Present illness Narrative* MOIZ Andrew - 03/13/2025 9:30 AM EDT Images from the original note were not included. * Lindsay Arrieta DO - 03/13/2025 9:30 AM EDT Images from the original note were not included. [facility] Pulmonary And Sleep Progress Note Patient - [...] exercise program advised Will reach out to [facility] and inquire regarding POC and if [...] PFT Results Radiology Dr. Lindsay Arrieta DO. [facility] Physicians Pulmonary & Critical Care Office: [phone] documented in this encounterSumma Health Wad[facility]07-08-2025 Miscellaneous Notes* Telephone Encounter - Chinyere Fisher - 03/11/2025 2:33 PM EDT Patient LVM w/no information. Linux System Administrator LVM for patient to call back. documented in this encounterSumma Health W[facility]07-08-2025 Telephone encounter Note* Telephone Encounter - Chinyere Fisher - 03/11/2025 2:33 PM EDT Patient LVM w/no information. Linux System Administrator LVM for patient to call back. [facility]07-02-2025 Miscellaneous Notes* Telephone Encounter - Chinyere Fisher - 03/05/2025 9:23 AM EDT [facility] [place] [address] New referral received by [facility] Medication Management for diabetes. Patient was contacted to schedule appointment at [facility] [place] ([facility]). This was my first attempt to reach the patient and was able to schedule the patient on 03/20 at 1:30 . Patient willbe asked to bring PPMM Additional Info: Medication List, Blood Glucose Meter, and Blood Sugar Log. Referral added to spreadsheet. Referring provider: Katelyn Recio MD * Telephone Encounter - Chinyere Fisher - 03/05/2025 9:23 AM EDT Patient's field case manager, Gosia, called to ask if patient's PCP can be kept in the loop on patient's appts since the referral came from cardiology. Linux System Administrator confirmed that PCP is Diaz Dalton and advised that PPMM will keep him in the loop. Per conversation with [facility], DM referral should come from PCP anyway. Linux System Administrator sent referral and renewal CA to PCP. documented in this encounterSumma Health [facility]07-02-2025 Telephone encounter Note* Telephone Encounter - Chinyere Fisher - 03/05/2025 9:23 AM EDT [facility] MEDICATION MANAGEMENT [address] [address] New referral received by [facility] Medication Management for diabetes. Patient was contacted to schedule appointment at [facility] [place] ([facility]). This was my first attempt to reach the patient and was able to schedule the patient on 03/20 at 1:30 . Patient willbe asked to bring PPMM Additional Info: Medication List, Blood Glucose Meter, and Blood Sugar Log. Referral added to spreadsheet. Referring provider: Katelyn Recio MD [facility]07-02-2025 Telephone encounter Note* Telephone Encounter - Chinyere Fisher - 03/05/2025 9:23 AM EDT Patient's field case manager, Gosia, called to ask if patient's PCP can be kept in the loop on patient's appts since the referral came from cardiology. Linux System Administrator confirmed that PCP is Diaz Dalton and advised that PPMM will keep him in the loop. Per conversation with [facility] Ly DM referral should come from PCP anyway. Linux System Administrator sent referral and renewal CA to PCP. [facility]07-02-2025 Telephone encounter Note* Telephone Encounter - ROSAURA Rosado - 03/05/2025 7:59 AM EDT Reviewed MRI, Possible Meniscus tear. No fracture... I want her to see Dr. Jackson for eval, keira pain and symptoms... please cancel appt with me and schedule with Dr. Jackson within the next week or 2 [facility] [id number] Miscellaneous Notes* Telephone Encounter - ROSAURA Rosado - 03/05/2025 7:59 AM EDT Reviewed MRI, Possible Meniscus tear. No fracture... I want her to see Dr. Jackson for eval, givenher pain and symptoms... please cancel appt with [...] she said that she hasn't heard from [facility] for the MRI yet, I told her [...] is so bad. Please advise she uses [facility] documented in this encounterCameron Regional Medical [id number] Miscellaneous Notes* Telephone Encounter - Jorge L Givens RN - 03/05/2025 7:11 AM EDT Images from the original note were not included. * Telephone Encounter - Jorge L Givens RN - 03/05/2025 7:11 AM EDT LMOM for pts field case manager Gosia (ok-[email or web address]) to update on LLDs PPMM recommendation. Linux System Administrator asked for r/c to office for any further questions. documented in this encounterSumma Health W[facility]07-02-2025 Telephone encounter Note* Telephone Encounter - Jorge L Givens RN - 03/05/2025 7:11 AM EDT Images from the original note were not included. [place] [address]-02-2025 Telephone encounter Note* Telephone Encounter - Jorge L Givens RN - 03/05/2025 7:11 AM EDT LMOM for pts field case manager Gosia (ok-hipaa) to update on LLDs PPMM recommendation. Linux System Administrator asked for r/c to office for any further questions. [facility]06-27-2025 Telephone encounter Note* Telephone Encounter - Tracyher Olivera - 02/28/2025 10:35 AM EDT I called Carissa and explained to her that we didn't want to use narcotics at this time, but she cantake 600 mg Mortrin 3x a day and supp with Tylenol between. Advise Non weight bearing on that leg until we got the MRI, she said that she hasn't heard from [facility] for the MRI yet, I told her to give them a call and see if she can get that started. She said she will call them, told if she had any other questions or needed anything that we were here until 3:00pm today [facility] [id number] Telephone encounter Note* Telephone Encounter - ROSAURA [...] fever develops or symptoms worsen recommend ER. [facility] [id number] Telephone encounter Note* Telephone Encounter - Tracy Olivera - 02/27/2025 8:32 AM EDT Carissa was here 02/25/25 seen Cullen, she called this morning wanting to know if we could call her insomething for pain, she said that she can't sleep her pain is so bad. Please advise she uses [facility] NOMS [id number] History of Present illness Narrative* ROSAURA Rosado [...] IV contrast MRI LT [facility] w[facility]o [facility]. Orbits if needed. please push images to [facility] pacs Standing Status: Future Expected Date: [...] requiring urgent evaluation. Visit was preformed using [employer]-pest control pilot speech recognition. documented in this encounterCameron Regional Medical [id number] Miscellaneous Notes* Telephone Encounter - MOIZ Andrew - 02/25/2025 11:07 AM EDT Images from the original note were not included. Patient called and stated that she needed a PA for her Trelegy, editorial writer initiated PA through covermymeds. PA came back denied for Trelegy 200. * Telephone Encounter - MOIZ Andrew - 02/25/2025 11:07 AM EDT Images from the original note were not included. Reinitiated PA through Epic, PA for Trelegy 200 approved. * Telephone Encounter - Lindsay Arrieta DO - 02/25/2025 11:07 AM EDT Great thanks documented in this encounterSumma Health Wad[facility] Center06-24-2025 Telephone encounter Note* Telephone Encounter - MOIZ Andrew - 02/25/2025 11:07 AM EDT Images from the original note were not included. Patient called and stated that she needed a PA for her Trelegy, editorial writer initiated PA through covermymeds. PA came back denied for Trelegy 200. [facility]06-24-2025 Telephone encounter Note* Telephone Encounter - MOIZ Andrew - 02/25/2025 11:07 AM EDT Images from the original note were not included. Reinitiated PA through Epic, PA for Trelegy 200 approved. [facility]06-24-2025 Telephone encounter Note* Telephone Encounter - Lindsay Arrieta DO - 02/25/2025 11:07 AM EDT Great thanks [facility]06-16-2025 Miscellaneous Notes* Telephone Encounter - MOIZ Andrew - 02/17/2025 10:36 AM EDT Patient called office and stated that she only has 2 weeks left on her Trelegy 200, patient is requesting a refill as she does not see SE until 03/13/2025. Patient is requesting that the Rx be sent to [facility] [place]. Please review and advise. * Telephone Encounter - Lindsay Arrieta DO - 02/17/2025 10:36 AM EDT Okay to send refills * Telephone Encounter - Stella Reyes RN - 02/17/2025 10:36 AM EDT Script sent to get patient to office appt on 03-13-25. At office appt, will need to discuss additional refills with physician. Silvia - please call patient and notify. * Telephone Encounter - MOIZ Andrew - 02/17/2025 10:36 AM EDT Linux System Administrator called patient and informed her that Rx was sent to pharmacy and that she would have enough to get her through until her appointment, patient verbalized understanding. documented in this encounterSumma Health Wad[facility] Center06-16-2025 Telephone encounter Note* Telephone Encounter - MOIZ Andrew - 02/17/2025 10:36 AM EDT Patient called office and stated that she only has 2 weeks left on her Trelegy 200, patient is requesting a refill as she does not see SE until 03/13/2025. Patient is requesting that the Rx be sent to [facility] [place]. Please review and advise. [facility]06-16-2025 Telephone encounter Note* Telephone Encounter - Lindsay Arrieta DO - 02/17/2025 10:36 AM EDT Okay to send refills [facility]06-16-2025 Telephone encounter Note* Telephone Encounter - Stella Reyes RN - 02/17/2025 10:36 AM EDT Script sent to get patient to office appt on 03-13-25. At office appt, will need to discuss additional refills with physician. Silvia - please call patient and notify. [facility]06-16-2025 Telephone encounter Note* Telephone Encounter - MOIZ Andrew - 02/17/2025 10:36 AM EDT Linux System Administrator called patient and informed her that Rx was sent to pharmacy and that she would have enough to get her through until her appointment, patient verbalized understanding. [facility]06-09-2025 History of Present illness Narrative* Diaz Dalton MD - 02/10/2025 2:01 PM EDTAssociated Problem(s): Type 2 diabetes mellitus with hyperglycemia, with long-term current use of insulin ([facility]) BS elevated and increase semglee to 20 [...] Depression recently worse. Moved and found out [id number] . Down, sad, and crying. Not want [...] Addressed This Visit JOHN (generalized anxiety disorder) ([facility]) Symptoms worse and increase celexa. Warned will take 2-3 weeks to notice improvement in mood. Use ativan PRN. Relevant Medications LORazepam (Ativan) 1 MG tablet Chronic heart failure with preserved ejection fraction (HFpEF) ([facility]) Edema stable and continue lasix. Type 2 diabetes mellitus with microalbuminuria, with long-term current use of insulin ([facility]) Mild episode of recurrent major depressive disorder (HCC) ([facility]) Symptoms worse and increase celexa. Warned will take 2-3 weeks to notice improvement in mood. Relevant Medications citalopram (CeleXA) 40 MG tablet Class 3 severe obesity due to excess calories with serious comorbidity and body mass index (BMI) of40.0 to 44.9 in adult Weight loss indicated. Relevant Orders TSH Osteoarthritis of knee Unsteady when moving and script for rolling walker to patient. Dyslipidemia ([facility]) Relevant Orders Lipid panel Benign essential hypertension ([facility]) BP controlled and monitor PRN. Relevant Orders Basic metabolic panel Type 2 diabetes mellitus with hyperglycemia, with long-term current use of insulin ([facility]) - Primary BS elevated and increase semglee to 20 units BID. Resume moujaro. Relevant Medications insulin glargine (Semglee) 100 UNIT/ML pen Tirzepatide (Mounjaro) 2.5 MG/0.5ML solution auto-injector Other Relevant Orders Microalbumin / creatinine, urine ratio Hemoglobin A1c Encounter for long-term (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 medications Relevant Orders CBC and differential Hepatic function panel documented in this encounterCameron Regional Medical [id number] History of Present illness Narrative* Katelyn Recio MD - 01/03/2025 9:15 AM EDT Carissa Santos Date of visit: 01/03/2025 Date of : 1980 Age: 44 y.o. Patient Active Problem List Diagnosis Hyperglycemia Chest wall pain Type 2 diabetes mellitus with hyperglycemia, with long-term current use of insulin ([facility]) Mild developmental delay Obstructive sleep apnea syndrome Hyperlipidemia associated with type 2 diabetes mellitus ([facility]) Abnormal ECG during exercise stress test Mediastinal lymphadenopathy Acute cystitis without hematuria Pulmonary nodule Dyspnea on exertion Moderate persistent asthma without complication Chronic hypoxic respiratory failure ([facility]) BMI 40.0-44.9, adult ([facility]) Pulmonary hypertension ([facility]) COPD (chronic obstructive pulmonary disease) ([facility]) Chronic heart failure with preserved ejection fraction ([facility]) Dyslipidemia Edema Gastroesophageal reflux disease HTN (hypertension) [...] accompanied by her aide, Gosia, from the [facility]/social work program coordinator. Today she is unaccompanied CV TESTING HISTORY: [...] 06/26/2024 Performed by Harinder Estrella MD at [facility] CARDIAC CATH LABS CHOLECYSTECTOMY COLONOSCOPY 2021 COLONOSCOPY DIAGNOSTIC / SCREENING N/A 09/12/2024 Performed by Aliya Solorzano DO at [facility] EXPRESS ENDOBRONCHIAL ULTRASOUND BRONCHOSCOPY N/A 11/22/2023 Performed by Libby Finley MD at [facility] Right heart cath N/A 06/26/2024 Performed by Harinder Estrella MD at [facility] CARDIAC CATH LABS TONSILLECTOMY TUBAL LIGATION Bilateral [...] min Stress: No Stress Concern Present (12/20/2023) [employer] - Occupational Stress Questionnaire Feeling of Stress : Only a little Social Connections: Moderately Isolated (12/20/2023) Social Connection and Isolation Panel [NHANES] Frequency of Communication with Friends and Family: More than three times a week Frequency of Social Gatherings with Friends and Family: More than three times a week Attends Jehovah'S Witness Services: Never Active Member of Clubs or [...] heart failure with preserved ejection fraction (CMS-HCC) 2. Primary hypertension 3. Dyspnea on exertion 4. Hyperlipidemia associated with type 2 diabetes mellitus ([facility]-HCC) 1. CTA of the coronaries with calcium [...] Referring Physician: Diaz Dalton MD [address] [place] [address] documented in this encounterSumma Health W[facility]05-01-2025 Miscellaneous Notes* Telephone Encounter - Bethanie Patricia CMA - 01/02/2025 1:18 PM EDT Called patient to remind them to bring their most current copy of their medication list with them to their appt. Patient verbalizes understanding. documented in this encounterSumma Health Wadsworth - [facility]05-01-2025 Telephone encounter Note* Telephone Encounter - Bethanie Patricia CMA - 01/02/2025 1:18 PM EDT Called patient to remind them to bring their most current copy of their medication list with them to their appt. Patient verbalizes understanding. [facility]04-07-2025 Miscellaneous Notes* Telephone Encounter - MOIZ Andrew - 12/09/2024 8:23 AM EDT PAP mask and supplies order with supportive documentation faxed to [facility]. documented in this encounterSumma Health Wadsworth [facility]04-07-2025 Telephone encounter Note* Telephone Encounter - MOIZ Andrew - 12/09/2024 8:23 AM EDT PAP mask and supplies order with supportive documentation faxed to [facility]. [facility]04-02-2025 History of Present illness Narrative* Pacheco Madrigal [...] History: Diagnosis Date Anxiety Deep vein thrombosis ([facility]-HCC) Dental disease no teeth Depression Diabetes mellitus type I ([facility]) Elevated cholesterol [...] min Stress: No Stress Concern Present (12/20/2023) [employer] - Occupational Stress Questionnaire Feeling of Stress : Only a little Social Connections: Moderately Isolated (12/20/2023) Social Connection and Isolation Panel [NHANES] Frequency of Communication with Friends and Family: More than three times a week Frequency of Social Gatherings with Friends and Family: More than three times a week Attends Jehovah'S Witness Services: Never Active Member of Clubs or [...] (3%)=58.3 events/hour; AHI (4%)=38.5 events/hour; Zach SpO2=61.0%; (Aefvqr=720.0 lbs; BMI=45.5 kg/m2) CPAP 16 cm H20 pressure. DME: [employer] [place] Data card was available for PAP usage data download. PAP compliance is unsatisfactory. Impression: Carissa was seen today for sleep apnea. Diagnoses and all orders for this visit: Obstructive sleep apnea syndrome - PAP Mask and Supplies Noncompliance with CPAP treatment Chronic hypoxic respiratory failure, on home oxygen therapy ([facility]) Obesity, Class III, BMI 40-49.9 (morbid obesity) ([facility]) Chronic hypoxic respiratory failure -2L with exertion [...] machine if not completed already. Tax ID: [id number] Scheduling Instructions: Length of Need: 12 months [...] not to drive if sleepy, and to pullman car clerk if sleepiness occurs while driving. Above plan [...] that have escaped final proofreading. Pacheco Madrigal [facility] Office: [phone] 10:08 AM on 12/06/2024 CC: MD Pacheco BULL APRN-CNP 12/06/24 1008 documented in this encounterSt Johnsbury HospitalCarbon Salon [id number] Instructions* Patient Instructions* DUSTIN Quarles - 12/04/2024 1:00 PM EDT If you re looking for general health and wellness resources, please visit [email or web address]. documented in this encounterSumma Health Wadsworth [facility] Center03-06-2025 History of Present illness Narrative* Diaz Dalton [...] (BMI) of 40.0 to 44.9 in adult ([facility]) Weight loss indicated. * Diaz Dalton MD - 11/07/2024 10:46 AM ESTAssociated Problem(s): Chronic heart failure with preserved ejection fraction (HFpEF) ([facility]) Continue lasix. * Diaz Dalton MD - [...] failure with preserved ejection fraction (HFpEF) (CMS/HCC) Continue lasix. Relevant Medications furosemide (Lasix) 40 MG tablet Gastroesophageal reflux disease Symptoms controlled with protonix and continue. Mild episode of recurrent major depressive disorder (HCC) (CMS/[facility]) Mood controlled with medication and continue. Class 3 severe obesity due to excess calories with serious comorbidity and body mass index (BMI) of40.0 to 44.9 in adult (CMS/[facility]) Weight loss indicated. Type 2 diabetes mellitus with hyperglycemia, with long-term current use of insulin (CMS/HCC) - Primary Reports BS occasionally low but A1C 12.8. Continue semglee and increase jardiance. Stick to ADA diet and limit carbs. Relevant Medications empagliflozin (Jardiance) 25 MG Continuous Glucose Carton Inspector (FreeStyle Crystal 3 [place]) device documented in this encounterCameron Regional Medical [id number] History of Present illness Narrative* Diaz Dalton MD - 10/28/2024 2:56 PM ESTAssociated Problem(s): Chronic heart failure with preserved ejection fraction (HFpEF) (CMS/HCC) Continue lasix. * Diaz Dalton MD - 10/28/2024 2:55 PM ESTAssociated Problem(s): Chronic hypoxic respiratory failure (CMS/HCC) On home oxygen and follow with pulmonology. * Diaz Dalton MD - 10/28/2024 2:55 PM ESTAssociated Problem(s): Class 3 severe obesity due to excess calories with serious comorbidity and body mass index (BMI) of 40.0 to 44.9 in adult ([facility]) Weight loss indicated. * Diaz Dalton MD - 10/28/2024 2:54 PM ESTAssociated Problem(s): Type 2 diabetes mellitus with hyperglycemia, with long-term current use of insulin ([facility]) Stop mounjaro and decrease insulin. Check A1C. [...] and advised to stop mounjaro. Dose due Monday.[place] weak and lightheaded. To ER and labs [...] hyperglycemia, with long-term current use of insulin ([facility]) Stop mounjaro and decrease insulin. Check A1C. Relevant Medications insulin glargine (Semglee) 100 UNIT/ML pen Other Relevant Orders Hemoglobin A1c Dehydration - Primary Improved after IV fluids and monitor. Continue with increased fluid intake. Nausea & vomiting Use zofran PRN. documented in this encounterCameron Regional Medical [id number] History of Present illness Narrative* Carmen Bowman [...] Diagnosis Date Ankle fracture Anxiety and depression ([facility]) At low risk for fall Bilateral leg edema Chest pain, central Chronic left shoulder pain Chronic pain Chronic respiratory failure ([facility] Dyslipidemia ([facility] Epilepsy ([facility]) Childhood epilepsy JOHN (generalized anxiety disorder) ([facility]) Genital warts GERD (gastroesophageal reflux disease) History of being hospitalized pneumonia, diabetes, infection [10/29/21-11/05/21] History of medical problems mild mental retardation Hyperlipidemia ([facility]) Insomnia, persistent Irritable bowel syndrome with diarrhea MDD (major depressive disorder), recurrent episode, mild (HCC) ([facility]) Migraine without aura and without status migrainosus, not intractable ([facility]) Morbid obesity with BMI of 40.0-44.9, adult ([facility]) Nocturnal hypoxemia Nonsmoker OAB (overactive bladder) Obesity JOSE M (obstructive sleep apnea) Postoperative urinary retention Primary osteoarthritis of left knee Seasonal allergies Type 2 diabetes mellitus with diabetic polyneuropathy, with long-term current use of insulin ([facility]) Type 2 diabetes mellitus with hyperglycemia, with long-term current use of insulin ([facility]) Type 2 diabetes mellitus without complication ([facility]) Vitamin D deficiency Medications Current Outpatient Medications: [...] Continuous Glucose Sensor (FreeStyle Crystal 3 Sensor) [facility], 1 each every 14 (fourteen) [...] Rfl: 5 insulin pen needle (Droplet Pen [facility]) 32G x 4 mm [facility], USE ONE PEN NEEDLE TO INJECT MEDICATION SIX TIMES A DAY, Disp: 200 each, Rfl: 10 J-Dfvscmipxwjk-Qwogl-B12-B6 (Metanx) 3-90.314-2-35 MG capsule, Take 3 mg [...] TUNNEL RELEASE Right 06/17/2024 Dr Miller CHOLECYSTECTOMY 2010 CT ANGIOGRAM HEART CORONARY 09/27/2021 CT ANGIOGRAM TAVR 09/27/2021 CT ANGIOGRAM HEART CORONARY 08/08/2023 CT ANGIOGRAM HEART CORONARY 08/08/2023 LAPAROSCOPIC TUBAL LIGATION W/ FILCHIE CLIPS 12/29/2017 LAPAROSCOPY DIAGNOSTIC / BIOPSY / ASPIRATION / LYSIS 12/29/2017 Diagnostic laparoscopy LAPAROTOMY OVARIAN CYSTECTOMY 03/31/2023 [place] ARTHROCENTESIS ASPIR&/INJ MAJOR JT/BURSA W/O US Right [...] with type 2 diabetes mellitus (CMS/HCC) E11.42 A-Pxcewsgsjyuk-Zvnlo-B12-B6 (Metanx) 3-90.314-2-35 MG capsule 2. Neuritis M79.2 D-Wcunnyzphgge-Csoza-B12-B6 (Metanx) 3-90.314-2-35 MG capsule Patient examined and [...] today and a prescription was sent to [facility]. I recommend follow up for at-risk diabetic [...] understanding. Carmen Bowman DPM documented in this encounterCameron Regional Medical [id number] History of Present illness Narrative* Katelyn Recio MD - 10/07/2024 8:15 AM EST Carissa Santos Date of visit: 10/07/2024 Date of : 1980 Age: 44 y.o. Patient Active Problem List Diagnosis Hyperglycemia Chest wall pain Type 2 diabetes mellitus with hyperglycemia, with long-term current use of insulin ([facility]) Mild developmental delay Obstructive sleep apnea syndrome Hyperlipidemia associated with type 2 diabetes mellitus ([facility]) Abnormal ECG during exercise stress test Mediastinal lymphadenopathy Acute cystitis without hematuria Pulmonary nodule Dyspnea on exertion Moderate persistent asthma without complication Chronic hypoxic respiratory failure ([facility]) BMI 40.0-44.9, adult ([facility]) Pulmonary hypertension [facility] COPD (chronic obstructive pulmonary disease) ([facility]) Chronic heart failure with preserved ejection fraction ([facility]) Allergies Allergen Reactions Sulfamethoxazole-Trimethoprim Hives, Itching and [...] today by her aide, Gosia, from the [facility]/social work program coordinator CV TESTING HISTORY: ECHO: Echo complete W/ [...] 06/26/2024 Performed by Harinder Estrella MD at [facility] CARDIAC CATH LABS CHOLECYSTECTOMY COLONOSCOPY 2021 COLONOSCOPY DIAGNOSTIC / SCREENING N/A 09/12/2024 Performed by Aliya Solorzano DO at [facility] ULTR[facility] BRONCHOSCOPY N/A 11/22/2023 Performed by Libby Finley MD at [facility] Right heart cath N/A 06/26/2024 Performed by Harinder Estrella MD at [facility] CARDIAC CATH LABS TONSILLECTOMY TUBAL LIGATION Bilateral 2018 Family History Problem Relation Age of Onset [...] min Stress: No Stress Concern Present (12/20/2023) [employer] - Occupational Stress Questionnaire Feeling of Stress : Only a little Social Connections: Moderately Isolated (12/20/2023) Social Connection and Isolation Panel [NHANES] Frequency of Communication with Friends and Family: More than three times a week Frequency of Social Gatherings with Friends and Family: More than three times a week Attends Jehovah'S Witness Services: Never Active Member of Clubs or [...] Chronic heart failure with preserved ejection fraction ([facility]) 3. Type 2 diabetes mellitus with hyperglycemia, with long-term current use of insulin ([facility]) - MOUNJARO 2.5 mg/0.5 mL pen injector; [...] Referring Physician: Diaz Dalton MD [address] [place] [address] documented in this encounterSt Johnsbury HospitalAppCard02-03-2025 Instructions* Patient Instructions* Katelyn Recio MD - 10/07/2024 8:15 AM EST Discontinue Actos Start Jardiance Increase tirzepatide/Mounjaro documented in this encounterSumma Health Wadsworth - [facility]ittman [facility] Center01-31-2025 Miscellaneous Notes* Telephone Encounter - Sue Chow CMA - 10/04/2024 9:36 AM EST Called patient to remind them to bring their most current copy of their medication list with them to their appt. Patient verbalizes understanding. documented in this encounterSumma Health Wadsworth - [facility]ittman [facility] Center01-31-2025 Telephone encounter Note* Telephone Encounter - Sue Chow CMA - 10/04/2024 9:36 AM EST Called patient to remind them to bring their most current copy of their medication list with them to their appt. Patient verbalizes understanding. [facility]01-14-2025 Miscellaneous Notes* Telephone Encounter - Allyson Briscoe CMA - 09/17/2024 1:41 PM EST ----- Message from Dr. Aliya Solorzano, sent [...] Recall put in chart. documented in this [facility]01-14-2025 Telephone encounter Note* Telephone Encounter - Allyson Briscoe CMA - 09/17/2024 1:41 PM EST ----- Message from Dr. Aliya Solorzano DO sent at 09/17/2024 10:23 AM EST ----- Please let patient know that we did not get a polyp ibut I do recommend surveillance colonoscopy in5 years because there was a polyp but it was not retrieved. Thanks, Dr. Lawrence [employer] [id number] Telephone encounter Note* Telephone Encounter - Allyson Briscoe CMA - 09/17/2024 1:41 PM EST Spoke with patient regarding pathology results. Patient verbally understood with no further questions. Recall put in chart. [facility] HospitalT[facility]01-02-2025 Miscellaneous Notes* Perioperative Nursing Note - Marylu Otero RN - 09/05/2024 1:30 PM EST Preoperative Education Checklist- General Surgery date: 09/12/24 Surgery time: 1130 Arrival time: 929 1. Bring a photo ID and your insurance card with you the day of surgery. You will check in at the main lobby of the [facility]- registration desk is straight ahead as soon as you walk in. Tell them you are here for surgery. 2. If you have a Living Will/Durable Power of Supervisor Riveting for Health Care that is not on [...] after you have bathed. 5. NO nail jordanian/acrylic on at least one finger. If you are having a hand, wrist or foot surgery then all nail jordanian and artificial/acrylic nails must be removed from [...] please call the Preadmission Testing office at [phone], Mon.-Fri. 7 a.m.-3 p.m. Leave a voicemail [...] morning of procedure documented in this encounterProMedica Health [id number] Nurse Note* Perioperative Nursing Note - Marylu Otero RN - 09/05/2024 1:30 PM EST Preoperative Education Checklist- General Surgery date: 09/12/24 Surgery time: 1130 Arrival time: 0930 1. Bring a photo ID and your insurance card with you the day of surgery. You will check in at the main lobby of the [facility]- registration desk is straight ahead as soon as you walk in. Tell them you are here for surgery. 2. If you have a Living Will/Durable Power of Supervisor Riveting for Health Care that is not on [...] after you have bathed. 5. NO nail jordanian/acrylic on at least one finger. If you are having a hand, wrist or foot surgery then all nail jordanian and artificial/acrylic nails must be removed from [...] please call the Preadmission Testing office at [phone], Mon.-Fri. 7 a.m.-3 p.m. Leave a voicemail [...] blister with device Take morning of procedure [facility]12-03-2024 History of Present illness Narrative* Dayanara Wheatley LPN - 08/06/2024 2:00 PM EST Reason for Appointment: Patient ID: Carissa Santos is a 44 y.o. female who presents for [facility] Women Visit Patient presents today for Annual [...] Gluc Sensor (FreeStyle Crystal 14 Day Sensor) [facility] apply 1 SENSOR to back [...] UNITS DAILY* insulin pen needle (Droplet Pen [facility]) 32G x 4 mm [facility] USE ONE PEN NEEDLE TO [...] to allergen 10/01/2009 JOHN (generalized anxiety disorder) ([facility]) 10/01/2009 Contracture, unspecified ankle 04/06/2023 Chronic heart failure with preserved ejection fraction (HFpEF) ([facility]) 04/06/2023 Equinus deformity of left foot 04/06/2023 Gastroesophageal reflux disease 04/06/2023 Genital warts 04/06/2023 Hot flashes due to menopause 04/06/2023 Type 2 diabetes mellitus with microalbuminuria, with long-term current use of insulin ([facility]) 04/06/2023 Internal derangement of left shoulder 04/06/2023 Irritable bowel syndrome with diarrhea 04/06/2023 Mild developmental delay 09/29/2021 Migraine without aura and without status migrainosus, not intractable ([facility]) 04/06/2023 Mild episode of recurrent major depressive disorder (HCC) ([facility]) 04/06/2023 Class 3 severe obesity due to excess calories with serious comorbidity and body mass index (BMI) of40.0 to 44.9 in adult ([facility]) 11/21/2022 Type 2 diabetes mellitus with polyneuropathy ([facility]) 06/10/2021 Obstructive sleep apnea syndrome 09/30/2009 Osteoarthritis of knee 04/06/2023 Overactive bladder 04/06/2023 Panic disorder without agoraphobia ([facility]) 11/12/2009 Dyslipidemia ([facility]) 04/22/2010 Spondylosis without myelopathy 08/10/2010 Hypoxia 01/04/2024 Obesity hypoventilation syndrome ([facility]) 01/04/2024 Elevated blood-pressure reading without diagnosis of hypertension 01/04/2024 Right carpal tunnel syndrome 01/04/2024 Type 2 diabetes mellitus with hyperglycemia, with long-term current use of insulin ([facility]) 02/12/2024 Chronic hypoxic respiratory failure ([facility]) 02/19/2024 Moderate persistent asthma without complication ([facility]) 02/19/2024 Pulmonary hypertension ([facility]) 08/06/2024 Resolved Ambulatory Problems Diagnosis Date Noted Acute kidney injury (DREW) with acute tubular necrosis (ATN) ([facility]) 09/30/2021 Acute pain of left shoulder 04/06/2023 Shoulder joint pain 04/06/2021 Carpal tunnel syndrome of left wrist 04/06/2023 Convulsions in the 09/30/2009 Cubital tunnel syndrome on left 11/04/2022 Fecal incontinence 06/22/2016 High anion gap metabolic acidosis 09/30/2021 Hyperglycemia 03/01/2019 Mild intellectual disability ([facility]) 09/30/2009 Other chronic pain 04/06/2023 Pneumonia due to infectious organism 09/29/2021 Poorly controlled diabetes mellitus ([facility]) 08/10/2015 Normal gynecologic examination 06/09/2015 Missed period 04/06/2023 DKA, type 1, not at goal ([facility]) 09/27/2021 Type 2 diabetes mellitus ([facility]) 09/30/2009 Cavitary lesion of lung 08/10/2023 Other chest pain 08/10/2023 Acute pain of right knee 05/29/2024 Past Medical History: Diagnosis Date Ankle fracture Anxiety and depression ([facility]) At low risk for fall Bilateral leg edema Chest pain, central Chronic left shoulder pain Chronic pain Chronic respiratory failure ([facility]) Epilepsy ([facility]) GERD (gastroesophageal reflux disease) History of being hospitalized History of medical problems Hyperlipidemia ([facility]) Insomnia, persistent MDD (major depressive disorder), recurrent episode, mild (HCC) ([facility]) Morbid obesity with BMI of 40.0-44.9, adult ([facility]) Nocturnal hypoxemia Nonsmoker OAB (overactive bladder) Obesity JOSE M (obstructive sleep apnea) Postoperative urinary retention Primary osteoarthritis of left knee Seasonal allergies Type 2 diabetes mellitus with diabetic polyneuropathy, with long-term current use of insulin ([facility]) Type 2 diabetes mellitus without complication ([facility] Vitamin D deficiency HISTORY PAST MEDICAL HISTORY SOCIAL HISTORY Past Medical History: Diagnosis Date Ankle fracture Anxiety and depression ([facility] At low risk for fall Bilateral leg edema Chest pain, central Chronic left shoulder pain Chronic pain Chronic respiratory failure ([facility]) Dyslipidemia ([facility]) Epilepsy ([facility]) Childhood epilepsy JOHN (generalized anxiety disorder) ([facility]) Genital warts GERD (gastroesophageal reflux disease) History of being hospitalized pneumonia, diabetes, infection [10/29/21-11/05/21] History of medical problems mild mental retardation Hyperlipidemia ([facility]) Insomnia, persistent Irritable bowel syndrome with diarrhea MDD (major depressive disorder), recurrent episode, mild (HCC) ([facility]) Migraine without aura and without status migrainosus, not intractable ([facility]) Morbid obesity with BMI of 40.0-44.9, adult ([facility]) Nocturnal hypoxemia Nonsmoker OAB (overactive bladder) Obesity JOSE M (obstructive sleep apnea) Postoperative urinary retention Primary osteoarthritis of left knee Seasonal allergies Type 2 diabetes mellitus with diabetic polyneuropathy, with long-term current use of insulin ([facility]) Type 2 diabetes mellitus with hyperglycemia, with long-term current use of insulin ([facility] Type 2 diabetes mellitus without complication ([facility]) Vitamin D deficiency Social History Tobacco Use [...] 12/29/2017 Diagnostic laparoscopy LAPAROTOMY OVARIAN CYSTECTOMY 03/31/2023 [place] ARTHROCENTESIS ASPIR&/INJ MAJOR JT/BURSA W/O US Right [...] nursing note reviewed. Exam conducted with a medical secretary receptionist present. Vitals: Estimated body mass index is [...] of: Feliz Benz DO documented in this encounterCameron Regional Medical CenterCjwsxgnnbv70-05-0555 History of Present illness Narrative* Diaz Dalton MD - 08/06/2024 12:07 PM ESTAssociated Problem(s): Type 2 diabetes mellitus with hyperglycemia, with long-term current use of in sulin ([facility]) BS elevated with steroids and monitor. A1C improved but still elevated and increase mounjaro. * Diaz Dalton MD - 08/06/2024 12:07 PM ESTAssociated Problem(s): Pulmonary hypertension ([facility]) Continued SOB and follow with specialists. * [...] 44 y.o. female who presents for Follow-up ([facility] f/UP). ER follow up from [...] referral to General Surgery documented in this encounterCameron Regional Medical [id number] History of Present illness Narrative* DUSTIN Rausch - 07/30/2024 6:47 PM EST Received critical lab result from blood work drawn today of a glucose of 577. Spoke with patient onthe phone. She states her blood sugars have been running high all day. She was instructed to call her PCP for further instructions. She is on insulin. DUSTIN Rausch 07/30/24 [id number] documented in this encounterSumma Health Wadsworth - [facility]ittman [facility] Center11-26-2024 Miscellaneous Notes* Telephone Encounter - MOIZ Dubon - 07/30/2024 6:41 PM EST Contract: [facility] on patient. Please call Shahrzad @ [phone]. Sent secure chat to Cassy Davila documented in this encounterSumma Health Wadsworth - Rittman Medical Center11-26-2024 Telephone encounter Note* Telephone Encounter - MOIZ Dubon - 07/30/2024 6:41 PM EST Contract[facility] for critical lab on patient. Please call Shahrzad @ [phone]. Sent secure chat to Cassy Davila [facility]11-26-2024 Miscellaneous Notes* Telephone Encounter - Ramona Sarkar - 07/30/2024 6:18 PM EST [facility] * Telephone Encounter - Ramona Sarkar - 07/30/2024 6:18 PM EST Secure Chat sent to Cassy Davila DRAGLINE MECHANIC Routing sent documented in this encounterSumma Health Wadsworth - Rittman Medical Center11-26-2024 Telephone encounter Note* Telephone Encounter - Ramona Sarkar - 07/30/2024 6:18 PM EST Contract: [facility] deandra See for Critical Lab [facility]11-26-2024 Telephone encounter Note* Telephone Encounter - Ramona Sarkar - 07/30/2024 6:18 PM EST Secure Chat sent to Cassy Davila DRAGLINE MECHANIC Routing sent [facility]11-14-2024 History of Present illness Narrative* Hair See MD - 07/18/2024 11:30 AM EST Carissa Tena Angela Date of visit: 07/18/2024 Date of : 1980 Age: 43 y.o. Patient Active Problem List Diagnosis Hyperglycemia Chest pain, unspecified Type 2 diabetes mellitus with hyperglycemia, with long-term current use of insulin ([facility]) Mild developmental delay Obstructive sleep apnea syndrome Hyperlipidemia associated with type 2 diabetes mellitus ([facility]) Abnormal ECG during exercise stress test Mediastinal lymphadenopathy Acute cystitis without hematuria Pulmonary nodule Dyspnea on exertion Moderate persistent asthma without complication Chronic hypoxic respiratory failure ([facility]) BMI 45.0-49.9, adult ([facility]) Pulmonary hypertension ([facility]) Allergies Allergen Reactions Sulfamethoxazole-Trimethoprim Hives, Itching and [...] total) by mouth every 6 (six) hours. drvnzlygrwr-nfccrnynx-bilsgkex (TRELEGY ELLIPTA) 200-62.5-25 mcg blister with device [...] 06/26/2024 Performed by Harinder Estrella MD at [facility] CARDIAC CATH LABS CHOLECYSTECTOMY COLONOSCOPY 2021 ENDOBRONCHIAL ULTRASOUND BRONCHOSCOPY N/A 11/22/2023 Performed by Libby Finley MD at [facility] Right heart cath N/A 06/26/2024 Performed by Harinder Estrella MD at [facility] CARDIAC CATH LABS TONSILLECTOMY TUBAL LIGATION Bilateral [...] min Stress: No Stress Concern Present (12/20/2023) [employer] - Occupational Stress Questionnaire Feeling of Stress : Only a little Social Connections: Moderately Isolated (12/20/2023) Social Connection and Isolation Panel [NHANES] Frequency of Communication with Friends and Family: More than three times a week Frequency of Social Gatherings with Friends and Family: More than three times a week Attends [employer] Services: Never Active Member of Clubs or [...] 1. Dyspnea on exertion 2. Pulmonary hypertension ([facility]) Assessment: Chronic [...] next visit. She has upcoming visit with union organizer. Follow-up with Cardiology in a few months to reassess volume status. TODAYS ORDERS No orders of the defined types were placed in this encounter. FOLLOW UP No follow-ups on file. PCP: DIAZ DALTON MD Referring Physician: Diaz Dalton MD [address] [place] [address] documented in this encounterNewark HospitalAldera Aspirus Ironwood HospitalHlwesy30-14-2523 Miscellaneous Notes* Telephone Encounter - Bethanie Patricia CMA - 07/17/2024 9:48 AM EST Called patient to remind them to bring their most current copy of their medication list with them to their appt. Patient verbalizes understanding. documented in this encounterSumma Health Wadsworth - Rittman Medical Center11-13-2024 Telephone encounter Note* Telephone Encounter - Bethanie Patricia CMA - 07/17/2024 9:48 AM EST Called patient to remind them to bring their most current copy of their medication list with them to their appt. Patient verbalizes understanding. [facility] Sapato.ru [id number] History of Present illness Narrative* Barry Snowden [...] develop for requiring urgent evaluation. Barry Snowden APRN-DRAGLINE MECHANIC documented in this encounterCameron Regional Medical CenterRmnqwwivzw15-41-2716 History of Present illness Narrative* Maria C Bailey RN - 07/04/2024 9:00 AM EDT Patient presents to [place] office for post cardiac catheterization site evaluation. [...] prior to that appointment. documented in this encounterSumma Health Wadsworth - Rittman Medical Center10-30-2024 Miscellaneous Notes* Telephone Encounter - Bethanie Patricia CMA - 07/03/2024 9:53 AM EDT Called patient to remind them to bring their most current copy of their medication list with them to their appt. Patient verbalizes understanding. documented in this encounterSumma Health Wadsworth - Rittman Medical Center10-30-2024 Telephone encounter Note* Telephone Encounter - Bethanie Patricia CMA - 07/03/2024 9:53 AM EDT Called patient to remind them to bring their most current copy of their medication list with them to their appt. Patient verbalizes understanding. [facility]10-21-2024 History of Present illness Narrative* Barry Snowden [...] develop for requiring urgent evaluation. Barry Snowden APRN-DRAGLINE MECHANIC documented in this encounterCameron Regional Medical CenterWwgnnmgmjs21-09-3350 Miscellaneous Notes* Telephone Encounter - Rochelle Lovell RN - 06/20/2024 8:44 AM EDT Received order from Tracie at the [place] office. Patient scheduled for cath on 06/26/24 at 8:30 am at [facility] with T[facility]. Notified Tracie. No Covid test required at this time. documented in this encounterSumma Health Wadsworth - Rittman Medical Center10-17-2024 Telephone encounter Note* Telephone Encounter - Rochelle Lovell RN - 06/20/2024 8:44 AM EDT Received order from Tracie at the [place] office. Patient scheduled for cath on 06/26/24 at 8:30 am at [facility] with TLM. Notified Tracie. No Covid test required at this time. [facility]10-16-2024 Miscellaneous Notes* Telephone Encounter - Bethanie Patricia CMA - 06/19/2024 9:24 AM EDT Called patient to remind them to bring their most current copy of their medication list with them to their appt. Patient verbalizes understanding. documented in this encounterSumma Health Wadsworth - Rittman Medical Center10-16-2024 Telephone encounter Note* Telephone Encounter - Bethanie Patricia CMA - 06/19/2024 9:24 AM EDT Called patient to remind them to bring their most current copy of their medication list with them to their appt. Patient verbalizes understanding. [facility]10-15-2024 Note [id number]10-15-2024 Telephone encounter Note* Telephone Encounter - Barry Snowden NP - 06/18/2024 10:01 AM EDT She should have Bronston at [facility] in [place] [facility] [employer] Work Phone: 1(142) 295-548010-15-2024 Miscellaneous Notes* Telephone Encounter - Barry Snowden NP - 06/18/2024 10:01 AM EDT She should have [facility] at [facility] in [place] * Telephone Encounter - Kristan Chan - 06/18/2024 9:58 AM EDT Patient called requesting pain meds. States that she is really hurting. documented in this encounterCameron Regional Medical CenterTxmwtkizsj28-04-8800 Telephone encounter Note* Telephone Encounter - Kristan Chan - 06/18/2024 9:58 AM EDT Patient called requesting pain meds. States that she is really hurting. [facility] CenterMlpfhrwmsj16-21-9355 [facility] SURGERY Clinical Discharge Summary PERSON INFORMATION Name CARISSA SANTOS Age 43 Years 1980 Sex FEMALE Language Cymro PCP DIAZ DALTON Marital Status Phone Med Service Ambulatory Surgery Acct# Arrival 06/17/2024 08:13:31 Visit Reason SURGERY - RIGHT CARPAL TUNNEL RELEASE Acuity LOS 171 20:16 Address: [address] [place] [id number] Comment: PROVIDER INFORMATION VITALS INFORMATION Vital Sign [...] every day. Durable Medical Equipment for Prescription ([employer] SENSOR 14D) APPLY 1 SENSOR TO BACK [...] every day. Durable Medical Equipment for Prescription ([employer] SENSOR 14D) APPLY 1 SENSOR TO BACK [...] (oxybutynin 15 mg/24 hr (more content not included)...[facility] [id number] NoteProcedure: Decompression of median nerve right wrist [...] [Verified on: 06/17/2024 10:38 EDT] Gary Miller [facility]10-11-2024 Telephone encounter Note * Telephone Encounter - Barry Snowden NP - 06/14/2024 11:57 AM EDT Post op pain rx. PDMP reviewed [facility] Medical CenterUglkzjbugt87-76-5315 Miscellaneous Notes* Telephone Encounter - Barry Snowden NP - 06/14/2024 11:57 AM EDT Post op pain rx. PDMP reviewed documented in this encounterCameron Regional Medical CenterAppwzihmbc75-51-6660 History of Present illness Narrative* Lindsay Arrieta, [...] -1.94 2.91 - 4.40 (cm) Data set: [place] Z-score normal range: +/-1.65 PFT Results Radiology [...] paratracheal lymph node. Dr. Lindsay Arrieta DO. [facility] Office: [phone] documented in this encounterSumma Health Wadsworth - Rittman [facility] Center10-04-2024 Telephone encounter Note* Telephone Encounter - UYEN Gunter - 06/07/2024 12:42 PM EDT We have the clearance we are good to go [facility] Work Phone: [phone]) 436-976610-04-2024 Miscellaneous Notes* Telephone Encounter - UYEN Gunter [...] what you need, please call her at [phone] option 3 goes straight to her desk. documented in this encounterCameron Regional Medical CenterAaukbgpktw37-47-2590 Telephone encounter Note* Telephone Encounter - Diaz Dalton MD - 06/07/2024 11:50 AM EDT Script sent. [facility] Medical CenterLisrswdpmw07-59-7414 Miscellaneous Notes* Telephone Encounter - Diaz Dalton MD - 06/07/2024 11:50 AM EDT Script sent. * Telephone Encounter - PREMA MEDINA - 06/07/2024 11:21 AM EDT Prior auth for insulin went through, but was Prior auth'd for Semglee, if we can change the script and [facility] clm documented in this encounterCameron Regional Medical CenterVfqtnfjzkk36-24-6666 Telephone encounter Note* Telephone Encounter - PREMA MEDINA - 06/07/2024 11:21 AM EDT Prior auth for insulin went through, but was Prior auth'd for Semglee, if we can change the script and [facility] clm [facility] CenterHrclqpqfuj65-42-9015 Telephone encounter Note* Telephone Encounter - Luiza Evans - 06/03/2024 12:42 PM EDT Prema at Dr Lopez office called and left vm regarding patient, she stated you needed an updatedsx clearance for patient having wrist sx? She said there is addended one from 05/13/24 in chart. If you have questions or this is not what you need, please call her at [phone] option 3 goes straight to her desk. [facility] Medical CenterObdnhputrz18-73-4861 History of Present illness Narrative* Gary Miller, DO - 05/30/2024 2:30 PM EDT Images from the original note were not included. HISTORY OF PRESENT ILLNESS: Carissa Santos is an 43 y.o. @ female. Chief complaint RT hand N/T RT Wrist: cleared by Dr Dalton 05/13/24, had echo 05/14 [facility] Right wrist pain and N/T x 8-9 months and progressively getting worse. She notes that she is now getting pain in her thumb. She notes N/T in Thumb, IF and MF that is nearly constant. She wakes at HS.She wears OTC wrist brace. Describes pain as [...] Gluc Sensor (FreeStyle Crystal 14 Day Sensor) [facility] apply 1 SENSOR to back [...] each 5 insulin pen needle (Droplet Pen [facility]) 32G x 4 mm [facility] USE ONE PEN NEEDLE TO [...] Diagnosis Date Ankle fracture Anxiety and depression ([facility]) At low risk for fall Bilateral leg edema Chest pain, central Chronic left shoulder pain Chronic pain Chronic respiratory failure ([facility]) Dyslipidemia ([facility] Epilepsy ([facility]) Childhood epilepsy JOHN (generalized anxiety disorder) ([facility]) Genital warts GERD (gastroesophageal reflux disease) History of being hospitalized pneumonia, diabetes, infection [10/29/21-11/05/21] History of medical problems mild mental retardation Hyperlipidemia ([facility] Insomnia, persistent Irritable bowel syndrome with diarrhea MDD (major depressive disorder), recurrent episode, mild ([facility]) ([facility]) Migraine without aura and without status migrainosus, not intractable ([facility]) Morbid obesity with BMI of 40.0-44.9, adult ([facility]) Nocturnal hypoxemia Nonsmoker OAB (overactive bladder) Obesity JOSE M (obstructive sleep apnea) Postoperative urinary retention Primary osteoarthritis of left knee Seasonal allergies Type 2 diabetes mellitus with diabetic polyneuropathy, with long-term current use of insulin ([facility]) Type 2 diabetes mellitus with hyperglycemia, with long-term current use of insulin ([facility]) Type 2 diabetes mellitus without complication ([facility]) Vitamin D deficiency ALLERGIES: Allergies Allergen Reactions [...] Comments denies dribbling. Incontinence denies. Musculoskeletal: CommentsSee [facility] for details. Skin: Rash denies. [...] to proceed with surgery. I anticipate a [facility] Deirdre Miller D.O. documented in this encounterCameron Regional Medical [id number] History of Present illness Narrative* Diaz Dalton MD - 05/29/2024 11:15 AM EDTAssociated Problem(s): Right carpal tunnel syndrome Continued pain and follow with ortho. * Diaz Dalton MD - 05/29/2024 11:14 AM EDTAssociated Problem(s): Type 2 diabetes mellitus with microalbuminuria, with long-term current use of insulin ([facility]) BS elevated and A1C 12.9. Not taking [...] knee pain. Fell walking [place] 05[place]15 and hurt right knee. To ER [...] microalbuminuria, with long-term current use of insulin ([facility]) BS elevated and A1C 12.9. Not taking [...] Continue relafen and flexeril. documented in this encounterCameron Regional Medical CenterTvgsacttdz17-19-9285 Miscellaneous Notes* Telephone Encounter - Sue Chow CMA - 05/28/2024 9:08 AM EDT LM to call office to reschedule appt for today. documented in this encounterSumma Health Wadsworth - Rittman [facility] Center09-24-2024 Telephone encounter Note* Telephone Encounter - Sue Chow CMA - 05/28/2024 9:08 AM EDT LM to call office to reschedule appt for today. [facility]09-23-2024 Miscellaneous Notes* Telephone Encounter - Bethanie Patricia CMA - 05/27/2024 10:28 AM EDT Left message for patient to remind them to bring their most current medication list with them to their appointment. documented in this encounterSumma Health Wadsworth - Rittman Medical Center09-23-2024 Telephone encounter Note* Telephone Encounter - Bethanie Patricia CMA - 05/27/2024 10:28 AM EDT Left message for patient to remind them to bring their most current medication list with them to their appointment. [facility]09-12-2024 Telephone encounter Note* Telephone Encounter - Diaz Dalton MD - 05/16/2024 9:38 PM EDT [facility] CenterNcoxmxjvmx84-09-3561 Miscellaneous Notes* Telephone Encounter - Diaz Dalton MD - 05/16/2024 9:38 PM EDT documented in this encounterCameron Regional Medical CenterQivmzkmnix94-58-0519 History of Present illness Narrative* Diaz Dalton MD - 05/13/2024 2:50 PM EDTAssociated Problem(s): Type 2 diabetes mellitus with hyperglycemia, with long-term current use of insulin ([facility]) Reports BS improved and due for A1C. Increase mounjaro. Stick to ADA diet and limit carbs. * Diaz Dalton MD - 05/13/2024 2:50 PM EDTAssociated Problem(s): Spondylosis without myelopathy Increased pain and start flexeril. * Diaz Dalton MD - 05/13/2024 2:50 [...] Orders Hemoglobin A1c Chronic hypoxic respiratory failure ([facility]) On home oxygen and follow with pulmonology. documented in this encounterCameron Regional Medical [id number] Miscellaneous Notes* Telephone Encounter - MOIZ Andrew - 05/07/2024 8:56 AM EDT Oxygen order placed and faxed to [facility] with supportive documentation. documented in this encounterSumma Health Wadsworth - Rittman Medical Center09-03-2024 Telephone encounter Note* Telephone Encounter - MOIZ Andrew - 05/07/2024 8:56 AM EDT Oxygen order placed and faxed to [facility] with supportive documentation. [facility]08-21-2024 Telephone encounter Note* Telephone Encounter - Heaven November - 04/24/2024 2:42 PM EDT LM for patient to call our office back. [facility] CenterBvzajgocbp85-33-1387 History of Present illness Narrative* Dayanara Wheatley LPN - 04/24/2024 1:50 PM EDT Reason for [...] mg, Oral, Daily Continuous Blood Gluc Sensor (DomainexStyle Crystla 14 Day Sensor) misc apply 1 SENSOR [...] UNITS DAILY* insulin pen needle (Droplet Pen [facility]) 32G x 4 mm [facility] USE ONE PEN NEEDLE TO [...] to allergen 10/01/2009 JOHN (generalized anxiety disorder) ([facility]) 10/01/2009 Carpal tunnel syndrome of left wrist 04/06/2023 Contracture, unspecified ankle 04/06/2023 Edema 04/06/2023 Equinus deformity of left foot 04/06/2023 Gastroesophageal reflux disease 04/06/2023 Genital warts 04/06/2023 Hot flashes due to menopause 04/06/2023 Type 2 diabetes mellitus with microalbuminuria, with long-term current use of insulin ([facility] 04/06/2023 Internal derangement of left shoulder 04/06/2023 Irritable bowel syndrome with diarrhea 04/06/2023 Mild developmental delay 09/29/2021 Migraine without aura and without status migrainosus, not intractable ([facility]) 04/06/2023 Mild episode of recurrent major depressive disorder (HCC) ([facility]) 04/06/2023 Morbid obesity ([facility]) 11/21/2022 Type 2 diabetes mellitus with polyneuropathy ([facility]) 06/10/2021 Obstructive sleep apnea syndrome 09/30/2009 Osteoarthritis of knee 04/06/2023 Overactive bladder 04/06/2023 Panic disorder without agoraphobia ([facility] [facility] [place] 11/12/2009 Dyslipidemia ([facility] 04/22/2010 Spondylosis without myelopathy 08/10/2010 Cavitary lesion of lung 08/10/2023 Hypoxia 01/04/2024 Obesity hypoventilation syndrome ([facility]) 01/04/2024 Elevated blood-pressure reading without diagnosis of hypertension 01/04/2024 Right carpal tunnel syndrome 01/04/2024 Type 2 diabetes mellitus with hyperglycemia, with long-term current use of insulin ([facility] 02/12/2024 Chronic hypoxic respiratory failure ([facility] 02/19/2024 Moderate persistent asthma without complication ([facility] 02/19/2024 Resolved Ambulatory Problems Diagnosis Date Noted Acute kidney injury (DREW) with acute tubular necrosis (ATN) ([facility]) 09/30/2021 Acute pain of left shoulder 04/06/2023 Shoulder joint pain 04/06/2021 Convulsions in the 09/30/2009 Cubital tunnel syndrome on left 11/04/2022 Fecal incontinence 06/22/2016 High anion gap metabolic acidosis 09/30/2021 Hyperglycemia 03/01/2019 Mild intellectual disability ([facility] 09/30/2009 Other chronic pain 04/06/2023 Pneumonia due to infectious organism 09/29/2021 Poorly controlled diabetes mellitus ([facility] 08/10/2015 Normal gynecologic examination 06/09/2015 Missed period 04/06/2023 DKA, type 1, not at goal ([facility] 09/27/2021 Type 2 diabetes mellitus ([facility]) 09/30/2009 Other chest pain 08/10/2023 Past Medical History: Diagnosis Date Ankle fracture Anxiety and depression ([facility] At low risk for fall Bilateral leg edema Chest pain, central Chronic left shoulder pain Chronic pain Chronic respiratory failure ([facility] Epilepsy ([facility] GERD (gastroesophageal reflux disease) History of being hospitalized History of medical problems Hyperlipidemia ([facility] Insomnia, persistent MDD (major depressive disorder), recurrent episode, mild (HCC) ([facility] Morbid obesity with BMI of 40.0-44.9, adult ([facility] Nocturnal hypoxemia Nonsmoker OAB (overactive bladder) Obesity JOSE M (obstructive sleep apnea) Postoperative urinary retention Primary osteoarthritis of left knee Seasonal allergies Type 2 diabetes mellitus with diabetic polyneuropathy, with long-term current use of insulin ([facility]) Type 2 diabetes mellitus without complication ([facility]) Vitamin D deficiency HISTORY PAST MEDICAL HISTORY SOCIAL HISTORY Past Medical History: Diagnosis Date Ankle fracture Anxiety and depression ([facility]) At low risk for fall Bilateral leg edema Chest pain, central Chronic left shoulder pain Chronic pain Chronic respiratory failure ([facility] Dyslipidemia ([facility] Epilepsy ([facility]) Childhood epilepsy JOHN (generalized anxiety disorder) ([facility] Genital warts GERD (gastroesophageal reflux disease) History of being hospitalized pneumonia, diabetes, infection [10/29/21-11/05/21] History of medical problems mild mental retardation Hyperlipidemia ([facility] Insomnia, persistent Irritable bowel syndrome with diarrhea MDD (major depressive disorder), recurrent episode, mild (HCC) ([facility]) Migraine without aura and without status migrainosus, not intractable ([facility]) Morbid obesity with BMI of 40.0-44.9, adult ([facility] Nocturnal hypoxemia Nonsmoker OAB (overactive bladder) Obesity JOSE M (obstructive sleep apnea) Postoperative urinary retention Primary osteoarthritis of left knee Seasonal allergies Type 2 diabetes mellitus with diabetic polyneuropathy, with long-term current use of insulin ([facility]) Type 2 diabetes mellitus with hyperglycemia, with long-term current use of insulin ([facility] Type 2 diabetes mellitus without complication ([facility]) Vitamin D deficiency Social History Tobacco Use [...] 12/29/2017 Diagnostic laparoscopy LAPAROTOMY OVARIAN CYSTECTOMY 03/31/2023 [facility] ARTHROCENTESIS ASPIR&/INJ MAJOR JT/BURSA W/O US Right [...] nursing note reviewed. Exam conducted with a medical secretary receptionist present. Vitals: Estimated body mass index is [...] of: Feliz Benz DO documented in this encounterJoshua [place] [id number] Telephone encounter Note* Telephone Encounter - UYEN Gunter - 04/24/2024 12:11 PM EDT Once she is cleared we can reschedule her surgery, please let patient know thanks [facility] Work Phone: 1(853) 232-332708-21-2024 Telephone encounter Note* Telephone Encounter - Heaven November - 04/24/2024 11:48 AM EDT Patient called back asking if she should reschedule surgery at this time or wait until after cardiac clearance, please advise. Call back # [phone] [place] [id number] Telephone encounter Note* Telephone Encounter - UYEN Gunter - 04/24/2024 11:13 AM EDT Notified [facility] and cx sx [place] [id number] Telephone encounter Note* Telephone Encounter - Kristan Chan - 04/22/2024 9:56 AM EDT Patient would like to cancel her surgery. Appointment for cardiac namrata isn't till May 14. [place] [id number] Telephone encounter Note* Telephone Encounter - UYEN Gunter - 04/18/2024 4:06 PM EDT LM with Dr Dalton office that patient needs Echo and clearance from PCP Also spoke with patient to contact PCP to follow up for clearance [place] [id number] Telephone encounter Note* Telephone Encounter - UYEN Escudero - 04/18/2024 3:52 PM EDT Jacqueline from [facility] pre [facility] called regarding patient carissa santos 1980. she said looked at her Pat and said she needs to have an echo, that she needs evaluation for pulmonary hypertension. Please advise [place] [id number] Miscellaneous Notes* Telephone Encounter - Nina Bojorquez RN - 04/15/2024 6:26 PM EDT Images from the original note were not included. Last OV 07/13/2023 Message to scheduling for appt BMP 12/23/2023 documented in this encounterSum[facility] Telephone encounter Note* Telephone Encounter - Nina Bojorquez RN - 04/15/2024 6:26 PM EDT Images from the original note were not included. Last OV 07/13/2023 Message to scheduling for appt BMP 12/23/2023 [facility]08-07-2024 Miscellaneous Notes* Telephone Encounter - Raya Hensley [...] protocol in sleep otherwise documented in this encounterSumma Health [facility]08-07-2024 Telephone encounter Note* Telephone Encounter - Raya [...] oxygen, add per protocol in sleep otherwise [facility]08-06-2024 History of Present illness Narrative* Smitha Germain MD - 04/09/2024 11:00 AM EDT CHIEF COMPLAINT: Carissa Santos is a 43 y.o. female who presents to [facility] in follow-up for suspected [...] had prescribed thisfor sleep in the past [place] Sleepiness Scale: Sitting and Reading: Never Watching [...] hyperglycemia, with long-term current use of insulin ([facility]) Mild developmental delay Obstructive sleep apnea syndrome Severe obesity (BMI >= 40) ([facility]) Hyperlipidemia associated with type 2 diabetes mellitus ([facility]) Abnormal ECG during exercise stress test Mediastinal lymphadenopathy Acute cystitis without hematuria Pulmonary nodule Dyspnea on exertion Moderate persistent asthma without complication Chronic hypoxic respiratory failure ([facility]) Past Medical History: Diagnosis Date Anxiety Deep vein thrombosis ([facility]) Dental disease no teeth Depression Diabetes mellitus type I ([facility]) Elevated cholesterol GERD (gastroesophageal reflux disease) Hyperlipidemia Hypertension Lymphadenopathy 2023 MR (mental retardation) Obesity Panic disorder Visual impairment Past Surgical History: Procedure Laterality Date CHOLECYSTECTOMY COLONOSCOPY 2021 ENDOBRONCHIAL ULTRASOUND BRONCHOSCOPY N/A 11/22/2023 Performed by Libby Finley MD at [facility] TONSILLECTOMY TUBAL LIGATION Bilateral 2018 ALLERGIES: [...] Units total) by mouth in the morning. yuajbzshomn-ltkgutwrf-dtgmltat (TRELEGY ELLIPTA) 200-62.5-25 mcg blister with device [...] apnea), suspected 2. Chronic hypoxic respiratory failure ([facility]) 3. Severe obesity (BMI >= 40) ([facility]) Carissa Santos is a 43 y.o. female [...] acknowledged understanding and agreement. SMITHA GERMAIN MD [facility] [address] [place] [address] documented in this encounterSt Johnsbury HospitalAppCard08-06-2024 Instructions* Patient Instructions* Smitha Germain MD - 04/09/2024 11:00 AM EDT Thank you for visiting [facility] office. The process of completing a sleep study hasmany steps. We have detailed these steps below to help keep you informed of what to expect. The scheduling, prior authorization, and registration process: Please call option #1 to schedule your sleep study. Your sleep medicine specialist places an electronic order which is sent to [facility] sleep lab. This order is then reviewed by the lab staff and a request for approval is sent to your insurance company. If you would like to know the estimated cost of your study, you can call [phone] for general pricing information (note that you will need the following procedure codes allow them to estimate thecost: Polysomnogram (PSG), in lab diagnostic study without CPAP = [phone] PAP titration, in lab with CPAP for treatment = [phone] Every study request is reviewed in our sleep prior authorization department. Some sleep studies require prior authorization and some do not (only require that the provider document the need for the study). Some sleep study orders may need to be changed based on insurance coverage. (ie in lab to home study). Please confirm with your insurance that all [facility] sleep labs are in network [...] your sleep study is sent to a voice intercept technician to be reviewed and scored. The report from the voice intercept technician is then sent to the sleep medicine physician and within 7-10 days the study will be formally interpreted. Once the study is completed, there will be contact from our office (through mychart, phone, or a letter) about next steps (ie treatment for sleep apnea, office appointment, cpap machine orders). If a cpap machine has been ordered and you do not hear from the equipment company within 30 days ofyour study, please call our office [phone]. FYI: Some insurance companies have strict guidelines regarding the timeline for this process. If sleep studies are not completed within 6-12 months of the office visit insurance may require another office visit. Also if cpap set up is not done within a year of the initial sleep study insurance may require another sleep study. Thank you, [facility] Department REQUIREMENTS FOR [...] by your insurance company. documented in this encounterSt Johnsbury HospitalAppCard07-18-2024 History of Present illness Narrative* Stella Reyes RN - 03/21/2024 3:56 PM EDT Patient called nurse line and requested Trelegy script to be sent to [facility]. Script sent. documented in this encounterNewark HospitalAldera [facility] Ironwood [id number] History of Present illness Narrative* Lindsay Arrieta, DO - 03/18/2024 3:00 PM EDT [facility] [...] or calculate RVSP. Will reach out to [facility] to determine what portable tanks [...] Meds Medications Reviewed. Dr. Lindsay Arrieta DO. [facility] Office: [phone] documented in this encounterSumma Health Wad[facility]07-09-2024 Miscellaneous Notes* Telephone Encounter - Michelle Oseguera - 03/12/2024 3:09 PM EDT Per patient arriving to [facility] one hour past appt time and Dr GARLAND already gone for the day office canceled pt arrival and marked patient as a NO SHOW per PN. documented in this encounterSumma Health Wad[facility] - [facility] Center07-09-2024 Telephone encounter Note* Telephone Encounter - Michelle Oseguera - 03/12/2024 3:09 PM EDT Per patient arriving to [facility] one hour past appt time and Dr GARLAND already gone for the day office canceled pt arrival and marked patient as a NO SHOW per PN. [facility]07-09-2024 Miscellaneous Notes* Telephone Encounter - Maria C Bridges RN - 03/12/2024 3:08 PM EDT Patient signed on at 258 pm for 2 pm [facility] visit. Spoke with patient. Will need to reschedule appt. Is there a day she can be added on? * Telephone Encounter - Lindsay Arrieta DO - 03/12/2024 3:08 PM EDT Can do video visit on Monday at 3pm please. * Telephone Encounter - Maria C Bridges RN - 03/12/2024 3:08 PM EDT Patient agreeable and scheduled documented in this encounterSumma Health Wad[facility] Center07-09-2024 Telephone encounter Note* Telephone Encounter - Maria C Bridges RN - 03/12/2024 3:08 PM EDT Patient signed on at 258 pm for 2 pm mychart visit. Spoke with patient. Will need to reschedule appt. Is there a day she can be added on? [employer] Work Phone: [phone]) 903-335407-09-2024 Telephone encounter Note* Telephone Encounter - Lindsay Arrieta DO - 03/12/2024 3:08 PM EDT Can do video visit on Monday at 3pm please. [facility] [id number] Telephone encounter Note* Telephone Encounter - Maria C Bridges RN - 03/12/2024 3:08 PM EDT Patient agreeable and scheduled [facility]06-24-[facility]24 Miscellaneous Notes* Telephone Encounter - Michelle Oseguera - 02/26/2024 9:44 AM EDT Gosia called office to confirm patient appt date and times. Office confirmed and gave Gosia central scheduling number for sleep study purposes. documented in this encounterSumma Health Wadsworth [facility] Center06-24-2024 Telephone encounter Note* Telephone Encounter - Michelle Oseguera - 02/26/2024 9:44 AM EDT Gosia called office to confirm patient appt date and times. Office confirmed and gave Gosia central scheduling number for sleep study purposes. [facility]06-06-2024 History of Present illness Narrative* Lindsay Arrieta, DO - 02/08/2024 9:00 AM EDT [facility] Progress Note Patient - [...] function testing. She was recently hospitalized at [facility] in December. She just checked her [...] No tremors Meds Medications Reviewed. Lab Results [facility] [address] [place] [address] Cytology Consultation Patient Name:CARISSA SANTOS:1980 (Age: 43)Gender:FTaken:11/22/2023eported:11/23/2023 17:47Physician(s):Libby Finley MD ([phone])Copy To: Rec. #:[id number]: #[id number] Final Cytologic Diagnosis 1. 4R node, endobronchial [...] NECK: Normal physiologic activity in the imaged VICE PRESIDENT FIXED INCOME. Contrast evaluation of the face/brain due to [...] findings/limitations as above Dr. Lindsay Arrieta DO. [facility] Office: [phone] documented in this [facility]05-03-2024 Miscellaneous Notes* Telephone Encounter - Mary Gayle - 01/05/2024 10:40 AM EDT 01/05/2024- this patient called and left a vm, I called back and left a vm. mary documented in this [facility]05-03-2024 Telephone encounter Note* Telephone Encounter - Mary Gayle - 01/05/2024 10:40 AM EDT 01/05/2024- this patient called and left a vm, I called back and left a vm. mary [facility]04-20-2024 Nurse Note* Lindsey Bryant RN - 12/23/2023 [...] tele D/C. Waiting for Patient's ride home. [facility]04-20-2024 Nurse Note* Lindsey Bryant RN - 12/23/2023 [...] for Patient's ride home. documented in this encounterSumma Health Wadsworth - [facility] Center04-20-2024 Plan of care note * Plan of [...] at the bedside 7. Instruct patient/ patient u.s. 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 about use of safety devices 8. Include patient/ patient u.s. 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 in decisions related to safety Outcome: Progressing Note: Evaluation of progress towards goal: Pt is free of injury, safe environment provided and maintained, medication administered as ordered, hand hygiene completed. [facility]04-20-2024 Miscellaneous Notes* Plan of Care - Lindsey [...] at the bedside 7. Instruct patient/ patient u.s. 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 about use of safety devices 8. Include patient/ patient u.s. 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 in decisions related to safety Outcome: [...] Description: INTERVENTIONS: 1. Encourage patient or legal u.s. 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 to report early pain and ask [...] per policy 9. Teach patient or legal u.s. 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 interventions for comforting Outcome: Progressing Note: [...] at the bedside 7. Instruct patient/ patient u.s. 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 about use of safety devices 8. Include patient/ patient u.s. 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 in decisions related to safety Outcome: [...] hygiene technique 7. Identify and instruct patient/patient u.s. 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 in use of appropriate isolation precautionsfor identified infection/symptoms 8. Provide and discuss with patient/patient u.s. 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 on educational MDRO sheet 9. Encourage and monitor nutritional status daily and consult gas welding equipment mechanic if indicated 10. Implement neutropenic guidelines as needed 11. Review exposure to history of communicable disease and recent travel history on admission 12. Encourage annual influenza vaccine 13. Encourage pneumonia vaccine Outcome: Progressing Note: Evaluation of progress towards goal: Problem: Knowledge Deficit Goal: Patient/patient u.s. 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 demonstrates understanding of disease process, treatment [...] - Stacey Smith RN 12/22/23 11:04 AM * Discharge Planning [...] discussed with pt who confirmedthis. She asked editorial writer to try another DME. Staff updated on oxygen barrier. [facility] and also called: [phone] and spoke to Talisha who was able [...] Description: INTERVENTIONS: 1. Encourage patient or legal u.s. 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 to report early pain and ask [...] per policy 9. Teach patient or legal u.s. 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 interventions for comforting Outcome: Progressing Note: [...] at the bedside 7. Instruct patient/ patient u.s. 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 about use of safety devices 8. Include patient/ patient u.s. 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 in decisions related to safety Outcome: [...] at the bedside 7. Instruct patient/ patient u.s. 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 about use of safety devices 8. Include patient/ patient u.s. 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 in decisions related to safety Outcome: [...] hygiene technique 7. Identify and instruct patient/patient u.s. 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 in use of appropriate isolation precautionsfor identified infection/symptoms 8. Provide and discuss with patient/patient u.s. 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 on educational MDRO sheet 9. Encourage and monitor nutritional status daily and consult gas welding equipment mechanic if indicated 10. Implement neutropenic guidelines as [...] on disability, unemployed and supports her financially. Linux System Administrator reviewed goal for safe dc, discussed community [...] difficulty affording home medications; preferred pharmacy is [facility] in [place]. Pt prefers to make own appt, Informed editorial writer will f/u tomorrow to assist with finalizing home oxygen referral. She did not have any other questions or concerns at this time. 12/21/23 1656 Discharge Disposition Discharge Disposition Home Durable Medical Equipment (Qualified for oxygen with activity: Requests referral sent to [employer] She has had oxygen in the past from [facility] that is now [facility] County Information [facility] Patient Information Primary Caregiver Self Support System Immediate family Stressors Type of stressor (Denies) Income Information Income Information Unemployed ( provides income. She is not on disability) Referral To Community Resources Denies needs Discharge Planning Living Arrangements Spouse/significant other Support Systems Spouse/significant other;Parent;Family members;Friends;international operations manager/social work program coordinator Assistance Needed Spoke to pt who agrees [...] contact info and started to call when editorial writer left room. Type of Residence Private [...] home oxygen) Home Durable Medical Equipment Name: [employer] Home Durable Medical Equipment Home Durable Medical [...] EDT DISCHARGE PLANNING NOTE Referral sent to [employer] [facility] [employer] [facility], Immanuel Medina ([place]- P# ; F# ) ([place]- P# ; F# ) ([place]- P# ; F# ) ([place]- P# ; F# ) ([place]- P# ; F# ) ([place]- P# ; F# ) ([place]- P# [phone] ; F# [phone]) * Plan of Care - Arlene Smallwood RN - 12/21/2023 12:09 PM EDT Problem: Knowledge Deficit Goal: Patient/patient u.s. 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 demonstrates understanding of disease process, treatment [...] Patient is expected to discharge back [facility] in care of staff, pt [...] at the bedside 7. Instruct patient/ patient u.s. 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 about use of safety devices 8. Include patient/ patient u.s. 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 in decisions related to safety Outcome: Progressing Note: Evaluation of progress towards goal: Pt remains free from falls or accidental injury during stay. Fall prevention measures in place. Hourly rounding per RN and NA maintained. Problem: Knowledge Deficit Goal: Patient/patient u.s. 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 demonstrates understanding of disease process, treatment [...] involve patient in care. documented in this encounterSumma Health [facility]04-19-[facility]24 Plan of care note * Plan of Care - Archana Hernandez RN - 12/22/2023 8:41 PM EDT Problem: Pain Goal: Patient goal is pain score less than 4, able to rest, and participant in treatment plan as appropriate Description: INTERVENTIONS: 1. Encourage patient or legal u.s. 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 to report early pain and ask [...] per policy 9. Teach patient or legal u.s. 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 interventions for comforting Outcome: Progressing Note: [...] at the bedside 7. Instruct patient/ patient u.s. 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 about use of safety devices 8. Include patient/ patient u.s. 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 in decisions related to safety Outcome: [...] hygiene technique 7. Identify and instruct patient/patient u.s. 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 in use of appropriate isolation precautionsfor identified infection/symptoms 8. Provide and discuss with patient/patient u.s. 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 on educational MDRO sheet 9. Encourage and monitor nutritional status daily and consult gas welding equipment mechanic if indicated 10. Implement neutropenic guidelines as needed 11. Review exposure to history of communicable disease and recent travel history on admission 12. Encourage annual influenza vaccine 13. Encourage pneumonia vaccine Outcome: Progressing Note: Evaluation of progress towards goal: Problem: Knowledge Deficit Goal: Patient/patient u.s. 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 demonstrates understanding of disease process, treatment [...] working together with patient toachieve discharge goals. [facility] [id number] Hospital Discharge instructions* Discharge Instr - Other Orders* DOC Taylor - 12/22/2023 6:09 PM EDT Please call [facility] for update on oxygen. [phone]. Unable to arrange with [facility] [...] * Urinary Tract Infection Discharge Instructions, Adult (Cymro) * Type 2 Diabetes Discharge Instructions (Cymro) * Sleep Apnea Discharge Instructions (Cymro) documented in this encounterSumma Health Wad[facility]04-19-2024 History of Present illness Narrative* Tracy Whitten [...] With Exercise/Ambulation 94 % documented in this encounterSumma Health Wadsworth [facility]04-19-2024 Progress note* Discharge Planning Note - Stacey [...] - Stacey Smith RN 12/22/23 11:04 AM [facility] Sapato.ru [id number] Progress note* Discharge Planning Note - DOC [...] discussed with pt who confirmedthis. She asked editorial writer to try another DME. Staff updated on oxygen barrier. [facility] and also called: [phone] and spoke to Talisha who was able [...] oxygen today. DOC Taylor, 12/22/2023, 10:51 AM [facility]04-19-2024 Hospital course Narrative* Ezequiel Graff MD - 12/22/2023 10:44 AM EDT Images from the original note were not included. [facility] INTER[facility] MEDIC[facility] Hospital Medicine Discharge Summary Patient: Carissa Santos Date of : 1980 Room: 215/01 Encounter date: 12/22/23 DATE OF ADMISSION: 12/20/2023 DATE OF DISCHARGE:12/22/2023 DISCHARGE DIAGNOSES Principal Problem: Type 2 diabetes mellitus with hyperglycemia, with long-term current use of insulin ([facility]) Active Problems: Hyperglycemia Obstructive sleep apnea syndrome Severe obesity (BMI >= 40) ([facility]) Hyperlipidemia associated with type 2 diabetes mellitus ([facility]) Acute cystitis without hematuria CONSULTANTS None PCP: [...] and patient oxygen saturation increased to 94%. [id number] evaluation was completed today. Home O2 evaluation [...] These medications were sent to [id number] - [place], [place] - [address] [facility] [address] [facility] [id number] albuterol 90 mcg/actuation inhaler CEPHalexin 500 mg capsule >30 minutes were spent on discharging this patient. Eddie Zurita, FINA-LUCIANO, 12/22/2023 10:44 AM [facility] Hospitalists 7AM-7PM: Message rounding MARY JO in [employer] or page through [employer]. 7PM-7AM: Page on-call MARY JO through our [...] noted. EZEQUIEL GRAFF MD documented in this encounterSumma Health Wad[facility]04-19-2024 Plan of care note * Plan of Care - Jania Sierra RN - 12/22/2023 8:37 AM EDT Problem: Pain Goal: Patient goal is pain score less than 4, able to rest, and participant in treatment plan as appropriate Description: INTERVENTIONS: 1. Encourage patient or legal u.s. 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 to report early pain and ask [...] per policy 9. Teach patient or legal u.s. 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 interventions for comforting Outcome: Progressing Note: [...] at the bedside 7. Instruct patient/ patient u.s. 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 about use of safety devices 8. Include patient/ patient u.s. 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 in decisions related to safety Outcome: [...] monitor and treat blood sugar as needed [facility]04-19-2024 Plan of care note* Plan of Care [...] at the bedside 7. Instruct patient/ patient u.s. 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 about use of safety devices 8. Include patient/ patient u.s. 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 in decisions related to safety Outcome: [...] hygiene technique 7. Identify and instruct patient/patient u.s. 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 in use of appropriate isolation precautionsfor identified infection/symptoms 8. Provide and discuss with patient/patient u.s. representative on educational MDRO sheet 9. Encourage and monitor nutritional status daily and consult gas welding equipment mechanic if indicated 10. Implement neutropenic guidelines as [...] levels around 300mg/dl, insulin given PRN given. [facility]04-18-2024 Progress note* Discharge Planning Note - DOC [...] on disability, unemployed and supports her financially. Linux System Administrator reviewed goal for safe dc, discussed community [...] difficulty affording home medications; preferred pharmacy is [facility] in [place]. Pt prefers to make own appt, Informed editorial writer will f/u tomorrow to assist with [...] [facility] County Information [facility] [place] Patient Information Primary Caregiver Self Support System Immediate family Stressors Type of stressor (Denies) Income Information Income Information Unemployed ( provides income. She is not on disability) Referral To Community Resources Denies needs Discharge Planning Living Arrangements Spouse/significant other Support Systems Spouse/significant other;Parent;Family members;Friends;international operations manager/social work program coordinator Assistance Needed Spoke to pt who agrees [...] contact info and started to call when editorial writer left room. Type of Residence Private [...] home oxygen) Home Durable Medical Equipment Name: [employer] [facility] Home Durable Medical Equipment Home Durable Medical [...] goal: In progress: Home with oxygen tomorrow. [employer] [id number] Progress note* Discharge Planning Note - Paloma Bojorquez - 12/21/2023 3:16 PM EDT DISCHARGE PLANNING NOTE Referral sent to [facility] [employer] [facility] [employer] [facility], andARELY [place] ([place]- P# ; F# ) ([place]- P# ; F# ) ([place]- P# ; F# ) ([place]- P# ; F# ) ([place]- P# ; F# ) ([place]- P# ; F# ) ([place]- P# [phone] ; F# [phone]) [employer] [id number] Plan of care note* Plan of Care - Arlene Smallwood RN - 12/21/2023 12:09 PM EDT Problem: Knowledge Deficit Goal: Patient/patient u.s. representative demonstrates understanding of disease process, treatment [...] Patient is expected to discharge back to [facility] in care of staff, pt qualifies to be discharged on home O2 and is awaiting that to be arranged. [facility]04-18-2024 History and physical note* Ezequiel Graff MD - 12/21/2023 9:29 AM EDT Images from the original note were not included. [facility] INTERNAL MEDICINE [facility] Medicine History & Physical Patient: Carissa Santos Date of : 1980 Room: [facility] PCP: DIAZ DALTON MD Admission date: 12/20/2023 [...] in mom who reportedly had heart attack. Patiniurka nt does relate a remote history of [...] medical history of Anxiety, Deep vein thrombosis ([facility] Dental disease, Depression, Diabetes mellitus type I ([facility]), Elevated cholesterol, GERD (gastroesophageal reflux disease), Hyperlipidemia, [...] hyperglycemia, with long-term current use of insulin ([facility]) Active Problems: Hyperglycemia Obstructive sleep apnea syndrome Severe obesity (BMI >= 40) ([facility]) Hyperlipidemia associated with type 2 diabetes mellitus ([facility]) Acute cystitis without hematuria ASSESSMENT & PLAN [...] days. Eddie Zurita APRN-LUCIANO, 12/21/2023 9:52 AM [facility] Hospitalists 7AM-7PM: Message rounding MARY JO in [employer] or page through [employer]. 7PM-7AM: Page on-call MARY JO through our [...] above, unless otherwise noted. EZEQUIEL GRAFF MD [facility]04-18-2024 History and physical note* Ezequiel Graff MD - 12/21/2023 9:29 AM EDT Images from the original note were not included. [facility] INTERNAL MEDICINE Hospital Medicine History & Physical Patient: Carissa Santos Date of : 1980 Room: [facility] PCP: DIAZ DALTON MD Admission date: 12/20/2023 [...] in mom who reportedly had heart attack. Patie nt does relate a remote history of [...] medical history of Anxiety, Deep vein thrombosis ([facility]), Dental disease, Depression, Diabetes mellitus type I ([facility]), Elevated cholesterol, GERD (gastroesophageal reflux disease), Hyperlipidemia, [...] hyperglycemia, with long-term current use of insulin ([facility]) Active Problems: Hyperglycemia Obstructive sleep apnea syndrome Severe obesity (BMI >= 40) ([facility]) Hyperlipidemia associated with type 2 diabetes mellitus ([facility]) Acute cystitis without hematuria ASSESSMENT & PLAN [...] Discharge home in 1-2 days. Eddie Zurita, MERCHANDISING COORDINATOR-DRAGLINE MECHANIC, 12/21/2023 9:[address] [facility] Hospitalists 7AM-7PM: Message rounding MARY JO in [employer] or page through [employer]. 7PM-7AM: Page on-call MARY JO through our [employer] service, . Physician Attestation: I have reviewed [...] noted. EZEQUIEL GRAFF MD documented in this encounterSumma Health Wad[facility]04-18-2024 Plan of care note * Plan of [...] at the bedside 7. Instruct patient/ patient u.s. representative about use of safety devices 8. Include patient/ patient u.s. representative in decisions related to safety Outcome: Progressing Note: Evaluation of progress towards goal: Pt remains free from falls or accidental injury during stay. Fall prevention measures in place. Hourly rounding per RN and NA maintained. Problem: Knowledge Deficit Goal: Patient/patient u.s. representative demonstrates understanding of disease process, treatment [...] for appropiateness to involve patient in care. [facility]04-17-2024 Physician Emergency department Note* Dayna Doe, MERCHANDISING COORDINATOR-DRAGLINE MECHANIC - 12/20/2023 4:18 PM EDT Images from [...] History: Diagnosis Date Anxiety Deep vein thrombosis ([facility]) Dental disease no teeth Depression Diabetes mellitus type I ([facility]) Elevated cholesterol GERD (gastroesophageal reflux disease) Hyperlipidemia Hypertension Lymphadenopathy 2023 MR (mental retardation) Obesity Panic disorder Visual impairment Past Surgical History: Procedure Laterality Date CHOLECYSTECTOMY COLONOSCOPY 2021 ENDOBRONCHIAL ULTRASOUND BRONCHOSCOPY N/A 11/22/2023 Performed by Libby Finley MD at [facility] TONSILLECTOMY TUBAL LIGATION Bilateral 2018 Travel [...] on rocephin [RK] 1934 Discussed with Erin Mendez APRN-[facility] for Dr Graff who agrees to admit to obs. She meets obs criteria [RK] ED Course User Index [RK] Dayna Doe APRN-LUCIANO Clinical Impressions as of 12/22/23 1044 Hyperglycemia Acute cystitis without hematuria Hypoxia MDM Medical Decision Making ----- I, Arturo Hadley [...] and management services were performed by the PLUCK TRIMMER/PA-C under my supervision/collaborationwith my participation. I have reviewed all pertinent clinical information, including history, physical exam and plan. Provider Statement: By electronically signing this emergency patient record, the Emergency Physician/PLUCK TRIMMER/PA-C attests that all entries made into the electronic medical record by the scribe prior to the Physician/PLUCK TRIMMER/PA-C signature reflect an accurate accounting of the evaluation and care rendered by that Emergency Physic mustapha/PLUCK TRIMMER/PA-C. The Emergency Physician/PLUCK TRIMMER/PA-C assumes full responsibility for those entries. DUSTIN Mcneill 12/20/23 1623 Anamydesire Truex 12/20/23 1916 Anamya Truex 12/20/23 1923 DUSTIN Mcneill 12/20/23 1938 [facility]04-17-2024 Emergency department Note* DUSTIN Mcneill - 12/20/2023 [...] ENDOBRONCHIAL ULTRASOUND BRONCHOSCOPY N/A 11/22/2023 Performed by iLbby Finley MD at [facility] TONSILLECTOMY TUBAL LIGATION Bilateral 2018 Travel [...] and management services were performed by the PLUCK TRIMMER/PA-C under my supervision/collaborationwith my participation. I have reviewed all pertinent clinical information, including history, physical exam and plan. Provider Statement: By electronically signing this emergency patient record, the Emergency Physician/PLUCK TRIMMER/PA-C attests that all entries made into the electronic medical record by the scribe prior to the Physician/PLUCK TRIMMER/PA-C signature reflect an accurate accounting of the evaluation and care rendered by that Emergency Physic mustapha/PLUCK TRIMMER/PA-C. The Emergency Physician/PLUCK TRIMMER/PA-C assumes full responsibility for those entries. DUSTIN Mcneill 12/20/23 1623 Anamya Truex 12/20/23 1916 Anamya Truex 12/20/23 192 DUSTIN Mcneill 12/20/231937 * Bethanie Bradford RN - 12/20/2023 3:56 PM EDT Pt been feeling sob for a week. Did not contact pcp documented in this encounterSumma Health Wad[facility]04-17-2024 Emergency department Triage note* Bethanie Bradford RN - 12/20/2023 3:56 PM EDT Pt been feeling sob for a week. Did not contact pcp [id number] Miscellaneous Notes* Telephone Encounter - Libby Finley [...] Patient questions were answered. documented in this encounterNewark HospitalAldera [facility] Ironwood [id number] Telephone encounter Note* Telephone Encounter - Libby [...] and polyclonal B-cells. Patient questions were answered. [facility] Work Phone: [phone] Miscellaneous Notes* Telephone Encounter - Heaven 04/24/2024 2:42 PM EDT LM for patient [...] cardiac clearance, please advise. Call back # [phone] * Telephone Encounter - UYEN Gunter - 04/24/2024 11:13 AM EDT Notified [facility] and cx sx * Telephone Encounter - [...] - 04/18/2024 3:52 PM EDT Jacqueline from [facility] pre surgery called regarding patient carissa santos 1980. she said looked at her Pat and said she needs to have an echo, that she needs evaluation for pulmonary hypertension. Please advise documented in this encounterCameron Regional Medical [id number] Instructions* Pre- Procedure Instructions - Katelyn Allred RN - 11/15/2023 9:09 AM EDT Your surgery/procedure is scheduled at [facility] on 11/22/23 at 1:30 pm Arrival Time 11:30 am [facility] Address: [address] [place] [address] in [address] Parking lot located on [facility]. Report to the Entrance B. Check in at the information desk the surgery. The waiting room located on the second floor. If you have any questions prior to surgery, please call Pre-Admission Clinic at [phone] between 7:30 am and 4:30 pm Monday through Monday. If you have questions the morning of surgery, please call the Pre-op Department at [phone]. Notify your SURGEON if you develop any [...] to schedule therapy at a [facility] facility, please call [phone] ([phone]). Do not use lotions, creams, powders, perfume, [...] RIGHTS AND RESPONSIBILITIES As a patient at [facility], you have the right to: Receive medical care and be informed of who is taking care of you Be treated with dignity and respect Have a family member/u.s. representative of choice and your physician notified of your admission Receive information and actively participate in decisions about your care and treatment Refuse care, treatment and services Decide who may provide your support and speak for you Access moravian and spiritual services Participate in ethical issues [...] of hospital charges and payment methods Patient/patient u.s. representative responsibilities are to: Provide information about health status to facilitate care, treatment and services Follow the treatment, plan, keep appointments and speak up when you do not understand the plan Respect the rights of other patients and healthcare personnel Follow organizational rules and regulations that support quality care and a safe environment Fulfill financial obligations as promptly as possible [facility]03-13-2024 Miscellaneous Notes* Pre-Procedure Instructions - Katelyn Allred RN - 11/15/2023 9:09 AM EDT Your surgery/procedure is scheduled at [facility] on 11/22/23 at 1:30 pm Arrival Time 11:30 am [facility] Address: [address] [place] [address] Park in P1 Parking lot located on [facility]. Report to the Entrance B. Check in at the information desk the surgery. The waiting room located on the second floor. If you have any questions prior to surgery, please call Pre-Admission Clinic at [phone] between 7:30 am and 4:30 pm Monday through Monday. If you have questions the morning of surgery, please call the Pre-op Department at [phone]. Notify your SURGEON if you develop any [...] would like to schedule therapy at a [facility] Re[facility] facility, please call [phone] ([phone]). Do not use lotions, creams, powders, perfume, [...] RIGHTS AND RESPONSIBILITIES As a patient at [facility], you have the right to: Receive medical care and be informed of who is taking care of you Be treated with dignity and respect Have a family member/u.s. representative of choice and your physician notified of your admission Receive information and actively participate in decisions about your care and treatment Refuse care, treatment and services Decide who may provide your support and speak for you Access moravian and spiritual services Participate in ethical issues [...] of hospital charges and payment methods Patient/patient u.s. representative responsibilities are to: Provide information about health status to facilitate care, treatment and services Follow the treatment, plan, keep appointments and speak up when you do not understand the plan Respect the rights of other patients and healthcare personnel Follow organizational rules and regulations that support quality care and a safe environment Fulfill financial obligations as promptly as possible documented in this encounterSumma Health W[facility]03-08-2024 History of Present illness Narrative* Libby Finley MD - 11/10/2023 11:00 AM EST Images from the original note were not included. [facility] [address] [id number] Subjective: Chief Complaint Mediastinal lymphadenopathy HPI The [...] at rest. No wheezing She worked in [employer] in the past with no significant exposure to chemicals. No exposure to asbestos. She does not work since 3-4 years. She lives with her in apartment in [place] Review of Systems Constitutional: Negative. Negative for [...] this note were generated using voice recognition [employer] dictation software. Although every effort was made to ensure the accuracy of this automated transfer coordinator, some errors in transfer coordinator may have occurred. documented in this encounterSumma Health Wad[facility]03-07-2024 History of Present illness Narrative* Ana Mckeon CMA - 11/09/2023 9:15 AM EST Pulm referral for EBUS for pet positive mediastinal lymph node documented in this encounterSumma Health Wadsworth - [facility] Center03-07-2024 History of Present illness Narrative* Ryan Mcneal [...] Medical History: Diagnosis Date Deep vein thrombosis ([facility]) Diabetes mellitus type I ([facility]) GERD (gastroesophageal reflux disease) Hyperlipidemia MR (mental [...] min Stress: No Stress Concern Present (06/05/2023) [employer]ational [employer] - Occupational Stress Questionnaire Feeling of Stress : Only a little Social Connections: Moderately Isolated (06/05/2023) Social Connection and Isolation Panel [NHANES] Frequency of Communication with Friends and Family: More than three times a week Frequency of Social Gatherings with Friends and Family: More than three times a week Attends Jehovah'S Witness Services: Never Active Member of Clubs or [...] participate in her care documented in this encounterSumma Health Wad[facility]02-20-2024 History of Present illness Narrative* Bethanie Loredo - 10/24/2023 3:48 PM EST Lvm at the referrring office to follow up if patient had pet/ct scan completed documented in this encounterSumma Health Wadsworth - [facility]itt[facility] Center02-06-2024 History of Present illness Narrative* Bethanie Loredo - 10/10/2023 11:21 AM EST Contacted the referring office to see if patient got PET/CT scan completed. Referring office is still waiting for testing to be completed documented in this encounterSumma Health Wadsworth - [facility] Center02-06-2024 History of Present illness Narrative* Dayanara Wheatley LPN - 10/10/2023 8:00 AM EST Reason for Appointment: Patient ID: Carissa Santos is a 43 y.o. female who presents for Amenorrhea Patient presents today via telephone call for a telehealth appointment. Patients Phone #: [phone] (mobile) Current Medications: has a current medication [...] rhinitis due to allergen 10/01/2009 Anxiety state ([facility]) 10/01/2009 Carpal tunnel syndrome of left wrist 04/06/2023 Contracture, unspecified ankle 04/06/2023 Edema 04/06/2023 Equinus deformity of left foot 04/06/2023 Gastroesophageal reflux disease 04/06/2023 Genital warts 04/06/2023 Hot flashes due to menopause 04/06/2023 Type 2 diabetes mellitus with microalbuminuria, with long-term current use of insulin ([facility]) 04/06/2023 Internal derangement of left shoulder 04/06/2023 Irritable bowel syndrome with diarrhea 04/06/2023 Mild developmental delay 09/29/2021 Migraine without aura, not refractory ([facility] 04/06/2023 Mild episode of recurrent major depressive disorder (HCC) ([facility]) 04/06/2023 Morbid obesity ([facility]) 11/21/2022 Type 2 diabetes mellitus with polyneuropathy ([facility]) 06/10/2021 Obstructive sleep apnea syndrome 09/30/2009 Osteoarthritis of knee 04/06/2023 Overactive bladder 04/06/2023 Panic disorder without agoraphobia ([facility]) 11/12/2009 Dyslipidemia ([facility]) 04/22/2010 Spondylosis without myelopathy 08/10/2010 Cavitary lesion of lung 08/10/2023 Other chest pain 08/10/2023 Resolved Ambulatory Problems Diagnosis Date Noted Acute kidney injury (DREW) with acute tubular necrosis (ATN) ([facility]) 09/30/2021 Acute pain of left shoulder 04/06/2023 Shoulder joint pain 04/06/2021 Convulsions in the 09/30/2009 Cubital tunnel syndrome on left 11/04/2022 Fecal incontinence 06/22/2016 High anion gap metabolic acidosis 09/30/2021 Hyperglycemia 03/01/2019 Mild intellectual disability ([facility]) 09/30/2009 Other chronic pain 04/06/2023 Pneumonia due to infectious organism 09/29/2021 Poorly controlled diabetes mellitus ([facility] 08/10/2015 Normal gynecologic examination 06/09/2015 Missed period 04/06/2023 DKA, type 1, not at goal ([facility]) 09/27/2021 Type 2 diabetes mellitus ([facility]) 09/30/2009 Past Medical History: Diagnosis Date Ankle fracture Anxiety and depression ([facility]) At low risk for fall Bilateral leg edema Chest pain, central Chronic left shoulder pain Chronic pain Epilepsy ([facility]) JOHN (generalized anxiety disorder) ([facility]) GERD (gastroesophageal reflux disease) History of being hospitalized History of medical problems Hyperlipidemia ([facility] Insomnia, persistent MDD (major depressive disorder), recurrent episode, mild ([facility]) ([facility] Migraine without aura and without status migrainosus, not intractable ([facility]) Morbid obesity with BMI of 40.0-44.9, adult ([facility]) Nocturnal hypoxemia Nonsmoker OAB (overactive bladder) Obesity JOSE M (obstructive sleep apnea) Postoperative urinary retention Primary osteoarthritis of left knee Seasonal allergies Type 2 diabetes mellitus with diabetic polyneuropathy, with long-term current use of insulin ([facility]) Type 2 diabetes mellitus with hyperglycemia, with long-term current use of insulin ([facility]) Type 2 diabetes mellitus without complication ([facility]) Vitamin D deficiency Family History Problem Relation [...] 12/29/2017 Diagnostic laparoscopy LAPAROTOMY OVARIAN CYSTECTOMY 03/31/2023 [place] ARTHROCENTESIS ASPIR&/INJ MAJOR JT/BURSA W/O US Right [...] labs and ultrasound ordered and faxed to [place] for pt to have obtained. Will notify when results come in. Pt voiced understanding. Documented by Dayanara Wheatley LPN on behalf of: Feliz Benz DO documented in this encounterCameron Regional Medical [id number] History of Present illness Narrative* Barry Snowden [...] be reached in office, [facility] if any symptoms worsened or new symptoms develop for requiring urgent evaluation. Barry Snowden MERCHANDISING COORDINATOR-DRAGLINE MECHANIC documented in this encounterCameron Regional Medical [id number] Note [id number]#1.00[facility]01-23-2024 [id number]#1.00[facility] 09-25-2023 [facility] SURGERY Clinical Discharge Summary PERSON INFORMATION Name CARISSA SANTOS Age 43 Years 1980 Sex FEMALE Language Cymro PCP DIAZ DALTON Marital Status Phone Med Service Ambulatory Surgery Acct# Arrival 09/25/2023 06:07:34 Visit Reason Surgery- Left carpal tunnel release Acuity LOS 018 22:07 Address: [facility] [address] Comment: PROVIDER INFORMATION VITALS INFORMATION Vital Sign [...] mouth) every day. dulagluti (more content not included)...[facility] [id number] Note Procedure: Decompression of median nerve left [...] [Verified on: 09/25/2023 08:41 EST] [facility]01-08-2024 History of Present illness Narrative* Bethanie Loredo - 09/11/2023 2:30 PM EST 2nd attempt to contact referring office for most recent office notes and testing documented in this encounterSumma Health [facility]04[facility]2023 Note Attestation signed by Robson Paz MD [...] Medical History: Diagnosis Date Anxiety Diabetes mellitus ([facility]) Objective Exam: [...] Ousmane Perez MD Orthopedic Surgery, PGY-5 Pager: [phone] 12/07/22 11:51 AM By using the attestations [...] may be an additional personal documentation from me.[facility]03-20-2023 NotePatient: Carissa Santos Procedure Summary Date: 11/21/22 Room / Location: [facility] OR [address] [place] [address] OR Anesthesia Start: 1047 Anesthesia Stop: 1144 [...] were no known notable events for this encounter.[facility]03-20-2023 NotePatient: Carissa Santos Procedure Information Anesthesia Start Date/Time: 11/21/221046 Procedure: ULNAR NERVE DECOMPRESSION (Left: Forearm) Location: [address] Surgeons: Robson Paz MD Relevant [...] patient. Plan discussed with CAA. Additional Equipment RequestsUnMercy [facility]03-20-2023 Note Patient: Carissa Santos Procedure Summary Date: 11/21/22 Room / Location: [address] OR Anesthesia Start: 1046 Anesthesia Stop: Procedure: ULNAR NERVE DECOMPRESSION (Left: Forearm) Diagnosis: Cubital tunnel syndrome on left (Cubital tunnel syndrome on left [G56.22]) Surgeons: Robson Paz MD Responsible Provider: Paul Smith MD Anesthesia Type: MAC ASA Status: Not recorded Anesthesia Post Transport [facility] Oxygen Flow (L/min): 8 Patient Monitor: direct observation Transport: uneventful Patient condition is: stableUnMercy Health [facility] Hospital03-20-2023 Note Peripheral Block Patient location during procedure: pre-op Start time: 11/21/2022 10:15 AM End time: 11/21/2022 10:30 AM Reason for block: primary anesthetic and at surgeon's request Staffing Performed: resident/DELIMER/CAA Anesthesiologist: Paul Smith MD Resident/DELIMER: Mike Calloway MD Preanesthetic Checklist Completed: patient identified, IV checked, site marked, risks and benefits discussed, surgical consent, monitors and equipment checked, pre-op evaluation and timeout performed Peripheral Block Patient position: supine Prep: ChloraPrep Patient monitoring: heart rate and continuous pulse ox Block type: supraclavicular brachial plexus Laterality: left Injection technique: single-shot Guidance: ultrasound guided Needle Needle type: Priscacke Needle gauge: 22 G Needle length: 2 [...] Heart rate change: no Slow fractionated injection: yesUnMercy Health [facility]03-03-2023 Note Attestation signed by Robson Paz MD [...] Santos is a 42 y.o. year old [id number] female presenting for evaluation of left hand [...] Past Medical History: Diagnosis Date Diabetes mellitus ([facility]) Objective General: [...] finger: normal A1 carina and AROM Strength: aircraft engine cylinder mechanic 5/5, thumb 5/5, interossei 5/5 Sensation: intact [...] surgical intervention - Instructed patient that our regional vice president surgical sales reach out regarding future surgical date - Surgery will be performed under regional anesthesia -Return to clinic for surgical intervention -Call the orthopedic office any questions or concerns Michael Ward MD Orthopedic Surgery Resident Physician Pager: [phone] 11/04/22 12:35 PM By using the attestations [...] may be an additional personal documentation from me.[facility]01-30-2022 History of Present illness Narrative* Guido Salas DO - 10/03/2021 12:57 PM EST Images from the original note were not included. [facility] Office: [phone] Hemal Charles DO, Steve Raza DO, Costa [...] Richardson MD, Autumn David CNP, Laurie Hernandez DRAGLINE MECHANIC, Veronica Garcia DRAGLINE MECHANIC, Ada Rascon, VICE PRESIDENT FIXED INCOME, Jamal Soto, DRAGLINE MECHANIC, Shellie Patton, DRAGLINE MECHANIC, Dahiana Albarado, DRAGLINE MECHANIC, Zandra Holly, DRAGLINE MECHANIC, Andi Mcdonald DRAGLINE MECHANIC, ROSAURA Marr-Shane, Dahiana Vyas DNP, Christina Tanner DNP, Karyna Hernandez, LUCIANO, Corina Bedoya, LUCIANO, Amber Dewey CNP, Archana Lockhart CNP, Emili Stapleton CNP, Nina Anthony CNP [facility] IN-PATIENT SERVICE [facility] Progress Note 10/03/2021 12:57 PM Name: Carissa Santos Acct: [id number] Room: [address] [place] [address] IP Day: 5 Admit Date: 09/28/2021 9:38 AM PCP: Diaz Dalton MD Code Status: Full Code Subjective: C/C: DKA Interval History Status: unchanged. Patient seen and examined, feeling better today. Discharge, plan for transfer to be Brief History: Carissa Santos is a 41 year old female who was transferred [facility] an [facility] with DKA. Her presentation to ED on 09/26/21 showed her initial blood sugar of 816 with a beta-hydroxybutyrate 11.24, anion gap >25 with (+) ketones in urine. She was started on DKA protocol with bicarb drip, IVF and insulin drip and was transferred to [facility] on 09/28/21 for ICU admission and [...] mm [facility] Will need repeat CT in [...] history of MRDD initially went to the [facility] for nausea, shivering, chills and altered mental status. Patient was found to have DKA with bilateral lower lobe pneumonia. CTA negative for PE but it showed 13 mm pulmonary nodule. Patient was transferred to [facility] for further care. In ICU she [...] Out: - Date 10/03/21 0000 - 10/03/21 235 Shift 7374-8535 9375-4845 9337-8457 24 Hour Total INTAKE P.O.(mL/kg/hr) 360(0.4) 360 Shift Total(mL/kg) 360(3.6) 360(3.6) OUTPUT Shift Total(mL/kg) Weight (kg) 101.2 101.2 101.2 101.2 LABS: ABGs: No results for input(s): POCPH, POCPCO2, POCPO2, POCHCO3, RXJE5EXI in the last 72 hours. CBC: Recent [...] - [place]) High anion gap metabolic acidosis Resolved Problems: * No resolved hospital problems. * Community-acquired pneumonia MRDD 13 mm lung nodule Plan: Ok to dc Follow-up outpatient with repeat CT scan in 3 months. Albuterol inhaler Please note that this chart was generated using voice recognition [employer] dictation software. Although every effort was made to ensure the accuracy of this automated transfer coordinator, some errors in transfer coordinator may have occurred. * Li Phelan RN - 10/02/2021 3:55 PM EST Linux System Administrator spoke with pt's mother Jeanine in regards to patient's discharge. Jeanine states she knows howto perform the dressing on pt's arm and is comfortable doing so. Pt will need a ride home. Linux System Administrator will reach out to case management for setting up a ride. * Guido Salas DO - 10/02/2021 1:51 PM EST Images from the original note were not included. [facility] Office: [phone] Hmeal Charles DO, Steve Raza DO, Costa Cai DO, Gallito Lino DO, Natalee Negrete MD, Coreen Bryant MD, Shruti Bautista MD, Zulay Bueno MD, Priya Paul MD, Kevin Collins MD, Lyndsey Galindo MD, Morro Overton DO, Guido Salas DO, Rakel Aquino MD, Libby Samuel DO, MD Hazel, Kalyan Corbett MD, Shahzad Faria MD, Cee Casarez MD, Donavan Richardson MD, Autumn David, DRAGLINE MECHANIC, Laurie Hernandez, DRAGLINE MECHANIC, Veronica Garcia, DRAGLINE MECHANIC, Ada Rascon, [facility], Jamal Soto, DRAGLINE MECHANIC, Shellie Patton, DRAGLINE MECHANIC, Dahiana Albarado, DRAGLINE MECHANIC, Zandra Holly, DRAGLINE MECHANIC, Andi Mcdonald, DRAGLINE MECHANIC, YANIRA MarrC, Dahiana Vyas, DNP, Christina Tanner, DNP, Karyna Hernandez, DRAGLINE MECHANIC, Corina Bedoya, DRAGLINE MECHANIC, Amber Dewey, DRAGLINE MECHANIC, Archana Lockhart, DRAGLINE MECHANIC, Emili Stapleton, DRAGLINE MECHANIC, Nina Anthony, DRAGLINE MECHANIC [facility] IN-PATIENT SERVICE [facility] Progress Note 10/02/2021 1:51 PM Name: Carissa Santos Acct: [id number] Room: 0161/0161-01 IP Day: 4 Admit Date: [...] old female who was transferred [facility] with [facility]. Her presentation to ED on 09/26/21 showed her initial blood sugar of 816 with a beta-hydroxybutyrate 11.24, anion gap >25 with (+) ketones in urine. She was started on DKA protocol with bicarb drip, IVF and insulin drip and was transferred to [facility] on 09/28/21 for ICU admission and further treatment. Inaddition she had an elevated D-dimer. CTPE (-) for PE but concerning for RML pulmonary nodule and ill-defined ground glass opacification in the RUL concerning for PNA. She did have episodes of vomiting which have subsided. She was bridged to lantus insulin and insulin drip was discontinued. Transfer [facility] 09/29/21 Review of Systems: Constitutional: [...] mm [facility] Will need repeat CT in [...] history of MRDD initially went to the [facility] for nausea, shivering, chills and altered mental status. Patient was found to have DKA with bilateral lower lobe pneumonia. CTA negative for PE but it showed 13 mm pulmonary nodule. Patient was transferred to [facility] for further care. In ICU she [...] [Urine:400] Date 10/02/21 0000 - 10/02/212358 Shift 8918-7646 2712-0257 5792-0367 24 Hour Total INTAKE I.V.(mL/kg) 522(5.2) 522(5.2) Shift Total(mL/kg) 522(5.2) 522(5.2) OUTPUT Shift Total(mL/kg) Weight (kg) 101.2 101.2 101.2 101.2 LABS: ABGs: No results for input(s): POCPH, POCPCO2, POCPO2, POCHCO3, DUNA0NAB in the last 72 hours. CBC: Recent [...] Keith Bailey MD PGY-3, Internal medicine resident [facility], [place], [place] Please note that this chart was generated using voice recognition [employer] dictation software. Although every effort was made to ensure the accuracy of this automated transfer coordinator, some errors in transfer coordinator may have occurred. Associated attestation - Gian Marr MD - 10/02/2021 6:49 PM EST Attending Physician Statement I have discussed the case of Carissa Santos, including pertinent history and exam findings with the resident/fellow/medical student/PLUCK TRIMMER/PA. I have seen and examined the patient and the timmons elements of the encounter have been performed by me. I agree with the assessment, plan and orders as documented by the resident/fellow/medical student/PLUCK TRIMMER/PA With changes made to the note as [...] for the lung nodule identified in an [facility] films CT scan of the abdomen with trace bilateral pleural fluid and mild bibasilar atelectasis Patient will follow up with her primary care physician and union organizer in [place] as she does nothave any transportation to come to [facility] Gian Marr MD 10/02/2021 6:48 PM * Li Phelan RN - 10/02/2021 10:21 AM EST Linux System Administrator notified Pt was in SVT with HR [...] cough or weak non-productive cough GOSIA KOLB, FUR GRADER 1:03 PM FEMALE MALE FEV1 Predicted Normal [...] 10/01/2021 12:43 PM EST Physical Therapy Facility/Department: [address] [facility] Daily Treatment Note NAME: [...] Pt defer d/t fatigue . AM-PAC Score -[facility] Inpatient Mobility Raw Score : 18 (10/01/21 1230) AM-[facility] Inpatient T-Scale Score : 43.63 (10/01/21 1230) Mobility Inpatient CMS 0-100% Score: 46.58 (10/01/21 1230) Mobility Inpatient [facility] G-Code Modifier : CK (10/01/21 123) Goals [...] 10/01/2021 12:08 PM EST Called pt room ([id number]) and number in chart but no answer. [...] the original note were not included. [facility] Office: [phone] Hemal Charles DO, Steve Raza DO, Costa [...] Veronica Garcia CNP, Ada Rascon, VICENTE, Jamal Soto, DRAGLINE MECHANIC, Shellie Patton, DRAGLINE MECHANIC, Dahiana Albarado, DRAGLINE MECHANIC, Zandra Holly, DRAGLINE MECHANIC, Andi Mcdonald, DRAGLINE MECHANIC, Terrance Smalls PA-C, Dahiana Vyas, KIMBERLY, Christina Tanner, KIMBERLY, Karyna Hernandez, DRAGLINE MECHANIC, Corina Bedoya, DRAGLINE MECHANIC, Amber Dewey, DRAGLINE MECHANIC, Archana Lockhart, DRAGLINE MECHANIC, Emili Stapleton, DRAGLINE MECHANIC, Nina Anthony, DRAGLINE MECHANIC [facility] IN-PATIENT SERVICE [facility] Progress Note 10/01/2021 11:21 AM Name: Carissa Santos Acct: [id number] Room: 01609-04 IP Day: 3 Admit Date: 09/28/2021 9:38 AM PCP: Diaz Dalton MD Code Status: Full Code Subjective: C/C: DKA Interval History Status: unchanged. Patient seen and examined today, continues to have diffuse diarrhea. Bicarb still 13 on full bicarbdrip. Will consult infectious disease, spoke with nursing staff Brief History: Carissa Santos is a 41 year old female who was transferred [facility] with [facility]. Her presentation to ED on 09/26/21 showed her initial blood sugar of 816 with a beta-hydroxybutyrate 11.24, anion gap >25 with (+) ketones in urine. She was started on DKA protocol with bicarb drip, IVF and insulin drip and was transferred to [facility] on 09/28/21 for ICU admission and [...] history of MRDD initially went to the [facility] for nausea, shivering, chills and altered mental status. Patient was found to have DKA with bilateral lower lobe pneumonia. CTA negative for PE but it showed 13 mm pulmonary nodule. Patient was transferred to [facility] for further care. In ICU she [...] Date 10/01/21 0000 - 10/01/21 2359 Shift 2231-1426 6469-0413 4432-8261 24 Hour Total INTAKE Shift Total(mL/kg) OUTPUT Urine(mL/kg/hr) 600(0.7) 600 Shift Total(mL/kg) 600(5.9) 600(5.9) Weight (kg) 101.2 101.2 101.2 101.2 LABS: ABGs: No results for input(s): POCPH, POCPCO2, POCPO2, POCHCO3, OCYY8LYZ in the last 72 hours. CBC: Recent [...] Keith Bailey MD PGY-3, Internal medicine resident [facility], [place], [place] Please note that this chart was generated using voice recognition [employer] dictation software. Although every effort was made to ensure the accuracy of this automated transfer coordinator, some errors in transfer coordinator may have occurred. Attending Physician Statement I [...] x-ray PA lateral view tomorrow. Images from [facility] of CT scan is not available at this time we will requested again. Patient is aware and discussed with her again that she will need CT scan of the chest for follow-upof right middle lobe lung nodule in 3 months. Patient follow- up locally in [facility] with [facility] scan and outpatient pulmonary CT scan Discussed with nursing staff, treatment and plan discussed. Please note that this chart was generated using voice recognition [employer] dictation software. Although every effort was made to ensure the accuracy of this automated transfer coordinator, some errors in transfer coordinator may have occurred. Leonel Draper MD 10/01/2021 11:36 AM * Dayna Yates - 09/30/2021 5:03 PM EST Occupational Therapy [...] Ambulation Assistance: Independent Transfer Assistance: Independent Active Range Technician: No Patient's Range Technician Info: mother drives Occupation: Unemployed Leisure & [...] 23 Minutes Dayna Yates OTS * Mary Wong - 09/30/2021 4:47 PM EST Linux System Administrator reached out to pulling unit floorhand on 2C to obtain lung scans from [facility]. warehouse inventory clerk attempting to reach out, editorial writer will reevaluate * Jody Ro RD, LD - 09/30/2021 4:00 PM EST Attempted assessment/education but direct care staffer assisting pt with personal care/needs. * Leonel [...] history of MRDD initially went to the [facility] for nausea, shivering, chills and altered mental status. Patient was found to have DKA with bilateral lower lobe pneumonia. CTA negative for PE but it showed 13 mm pulmonary nodule. Patient was transferred to [facility] for further care. In ICU she [...] Date 09/30/21 0000 - 09/30/21 2359 Shift 7387-9353 5248-5347 3740-5617 24 Hour Total INTAKE Shift Total(mL/kg) OUTPUT Urine(mL/kg/hr) 500(0.6) 1000 1500 Shift Total(mL/kg) 500(4.9) 1000(9.9) 1500(14.8) Weight (kg) 101.2 101.2 101.2 101.2 LABS: ABGs: No results for input(s): POCPH, POCPCO2, POCPO2, POCHCO3, QQUK7BOJ in the last 72 hours. CBC: Recent [...] -- YEAST, NOT SHENG ALBICANS OR SHENG [id number] to 50,000 CFU/ML* YEAST, NOT SHENG ALBICANS [...] Keith Bailey MD PGY-3, Internal medicine resident [facility], [place], [place] Please note that this chart was generated using voice recognition [employer] dictation software. Although every effort was made to ensure the accuracy of this automated transfer coordinator, some errors in transfer coordinator may have occurred. Attending Physician Statement I [...] a CT scan of thechest done [facility] before she was transferred shows right upper lobe possible groundglass infiltrate/pneumonia and right middle lobe 13 mm nodule which according to radiology report (I do not have any images available from [facility]) could be infectious inflammatory or other etiology. [...] this chart was generated using voice recognition [employer] dictation software. Although every effort was made to ensure the accuracy of this automated transfer coordinator, some errors in transfer coordinator may have occurred. Leonel Draper MD 09/30/2021 3:36 PM * Mary Wong - 09/30/2021 12:51 PM EST RN attempted to call mother of patient, Lynne, to give update on pt's status, with no answer. Will try again later. * Chinyere Black, PT - 09/30/2021 12:39 PM EST Physical Therapy Facility/Department: [address] [facility] Initial Assessment NAME: Carissa [...] Ambulation Assistance: Independent Transfer Assistance: Independent Active Range Technician: No Patient's Range Technician Info: mother drives Occupation: Unemployed Leisure & [...] Bed mobility Supine to Sit: Minimal assistance (SPANISH INTERPRETER/TRANSLATOR) Sit to Supine: (retired to bedside chair [...] AM-PAC Inpatient Mobility Raw Score : 18 (09/30/21 121) AM-PAC Inpatient T-Scale Score : 43.63 (09/30/211210) [...] the original note were not included. [facility] Office: [phone] Hemal Charles DO, Steve Raza DO, Costa Cai DO, Gallito Lino DO, Natalee Negrete MD, Coreen Bryant MD, Shruti Bautista MD, Zulay Bueno MD, Priya Paul MD, Kevin Collins MD, Lyndsey Galindo MD, Morro Overton DO, Guido Salas DO, Rakel Aquino MD, Libby Samuel DO, MD Hazel, Kalyan Corbett MD, Shahzad Faria MD, Cee Casarez MD, Donavan Richardson MD, Autumn David, DRAGLINE MECHANIC, Laurie Hernandez, DRAGLINE MECHANIC, Veronica Garcia, DRAGLINE MECHANIC, Ada Rascon, VICE PRESIDENT FIXED INCOME, Jamal Soto, DRAGLINE MECHANIC, Shellie Patton, DRAGLINE MECHANIC, Dahiana Albarado, DRAGLINE MECHANIC, Zandra Holly, DRAGLINE MECHANIC, Andi Mcdonald, DRAGLINE MECHANIC, ROSAURA Marr-C, Dahiana Vyas, DNP, Christina Tanner, DNP, Karyna Hernandez, DRAGLINE MECHANIC, Corina Bedoya, DRAGLINE MECHANIC, Amber Dewey, DRAGLINE MECHANIC, Archana Lockhart, DRAGLINE MECHANIC, Emili Stapleton, DRAGLINE MECHANIC, Nina Anthony, DRAGLINE MECHANIC [facility] IN-PATIENT SERVICE [facility] Progress Note 09/30/2021 11:41 AM Name: Carissa Santos Acct: [id number] Room: [address] [place] [address] Day: 2 Admit Date: 09/28/2021 9:38 AM PCP: Diaz Dalton MD Code Status: Full Code Subjective: C/C: DKA Interval History Status: unchanged. Pt seen and evaluated this morning. She continues to feel ill. Continues to have a dry cough. She is denying fever, chills, nausea, vomiting, diarrhea. Brief History: Carissa Santos is a 41 year old female who was transferred from an [facility] facility with DKA. Her presentation to ED on 09/26/21 showed her initial blood sugar of 816 with a beta-hydroxybutyrate 11.24, anion gap >25 with (+) ketones in urine. She was started on DKA protocol with bicarb drip, IVF and insulin drip and was transferred to [facility] on 09/28/21 for ICU admission and further treatment. Inaddition she had an elevated D-dimer. CTPE (-) for PE but concerning for RML pulmonary nodule and ill-defined ground glass opacification in the RUL concerning for PNA. She did have episodes of vomiting which have subsided. She was bridged to lantus insulin and insulin drip was discontinued. Transfer to [facility] bed 09/29/21 Review of Systems: Constitutional: [...] Patient's name: Carissa Santos Patient's account/billing number: [id number] Patient's Date of : 1980 Age: 41 [...] history of MRDD, diabetes mellitus came from [facility] after presenting there with altered mental status and found to be in DKA. Over that patient was startedon an insulin drip, Ringer lactate, bicarb drip. Transferred to [facility] for further management. Overnight was bridged to Lantus, tolerating diet. On admission her D-dimer was high, CT PE negative for emboli but concerning for pneumonia as well as right middle lobe 13 mm pulmonary nodule. Patient is being treated with ceftriaxone and azithromycin for pneumonia and UTI, Diflucan added for yeast in urine. social services specialist consulted Current Vitals: BP (!) 109/59 Pulse [...] the patientfrom now onwards on the floor. Mi Giron Sra, MD, MCarlos. PGY-2 IM Resident 09/29/2021, 3:09 PM * Mi Giron Sra, MD - 09/29/2021 8:18 AM EST Critical Care Team - Daily Progress Note Date and time: 09/29/2021 8:19 AM Patient's name: Carissa Santos Patient's account/billing number: [id number] Patient's Date of : 1980 Age: 41 [...] degree Ulcer prophylaxis: [] PPI Agent, [] [id number], [] Sucralfate, [] Other: Not indicated Glycemic [...] Meds: insulin lispro 0-6 Units SubCUTAneous TID insulin lispro 0-3 Units SubCUTAneous Nightly heparin [...] PTT Comprehensive Metabolic Profile: Recent Labs 09/28/21 21509/29/21 0153 09/29/21 0501 NA 131* 133* 133* [...] Giron Sra, MD Department of Critical Care [facility] [place] 09/29/2021, 8:19 AM Associated attestation - Gian Marr MD - 09/29/2021 7:26 PM EST Attending Physician Statement I have discussed the case of Carissa Santos, including pertinent history and exam findings with the resident/fellow/medical student/PLUCK TRIMMER/PA. I have seen and examined the patient and the timmons elements of the encounter have been performed by me. I agree with the assessment, plan and orders as documented by the resident/fellow/medical student/PLUCK TRIMMER/PA With changes made to the note as [...] monitor We will transfer the patient to [facility] bed and we will follow the patient [...] with pastoral care, Ethics consult entered per group home supervisor's recommendation for help with decision making and [...] Wound Volume (cm^3) 2.96 cm^3 Wound Assessment Subcutaneous;Weinert/red Drainage Amount Small Drainage Description Serosanguinous Odor [...] gastric contents upon arrival. [facility]: [phone] Hospital Discharge instructions* Discharge Instr - HEIKE* [...] Independent Dressing Independent Toileting Independent Feeding Independent Project Production Engineer Independent Med Delivery whole Wound [...] [facility] [address] [facility] [address] Dialysis Facility (if applicable) Name: Address: Dialysis Schedule: Phone: Fax: Material Preparation Worker/Operations Administrative Assistant signature: PHYSICIAN SECTION Prognosis: Good Condition at [...] for pulmonary nodule evaluation [facility]: evaluation note* Diagnosis DKA, type 1, not at goal ([facility] Primary 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, uncontrolled Pneumonia due to infectious organism Mental developmental delay Unspecified delay in development Acute kidney injury (DREW) with acute tubular necrosis (ATN) ([facility]) High anion gap metabolic acidosis Acidosis documented in this encounter Personaling Phone: [id number] note* Diagnosis Status post carpal tunnel release- Primary Other postprocedural status Amenorrhea Absence of menstruation documented in this encounter [facility]* Diagnosis Amenorrhea Absence of menstruation documented in this encounter [facility]* Diagnosis Type 2 diabetes mellitus with hyperglycemia, with long-term current use of insulin ([facility] Primary documented in this encounter [facility]* Diagnosis Post-operative pain- Primary Other acute postoperative pain documented in this encounter [facility]* Diagnosis Mild episode of recurrent major depressive disorder (HCC) ([facility])- Primary Type 2 diabetes mellitus with microalbuminuria, with long-term current use of insulin ([facility]) JOHN (generalized anxiety disorder) ([facility]) Generalized anxiety disorder Migraine without aura and without status migrainosus, not intractable ([facility]) Irritable bowel syndrome with diarrhea Irritable bowel syndrome Gastroesophageal reflux disease without esophagitis Esophageal reflux Hot flashes due to menopause Morbid obesity ([facility]) 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) Obesity hypoventilation syndrome ([facility])- Primary Obesity hypoventilation syndrome Hypoxia Hypoxemia Type 2 diabetes mellitus with microalbuminuria, with long-term current use of insulin ([facility]) Right carpal tunnel syndrome Carpal tunnel syndrome Elevated blood-pressure reading without diagnosis of hypertension Elevated blood pressure reading without diagnosis of hypertension Type 2 diabetes mellitus with hyperglycemia, with long-term current use of insulin ([facility])- Primary Mild episode of recurrent major depressive disorder (HCC) ([facility]) JOHN (generalized anxiety disorder) ([facility]) Generalized anxiety disorder Carpal tunnel syndrome of left wrist Obesity hypoventilation syndrome ([facility]) Obesity hypoventilation syndrome Generalized edema Edema Irritable bowel syndrome with diarrhea Irritable bowel syndrome Gastroesophageal reflux disease without esophagitis Esophageal reflux Anxiety state ([facility]) Anxiety state, unspecified Type 2 diabetes mellitus with hyperglycemia, with long-term current use of insulin ([facility])- Primary Right carpal tunnel syndrome Carpal tunnel syndrome Chronic hypoxic respiratory failure ([facility]) Mild episode of recurrent major depressive disorder (HCC) ([facility]) JOHN (generalized anxiety disorder) ([facility]) Generalized anxiety disorder Generalized edema 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 Spondylosis of unspecified site without mention of myelopathy 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 elsewhere ([facility]) Acute pain of right knee- Primary Type 2 diabetes mellitus with microalbuminuria, with long-term current use of insulin ([facility]) Right carpal tunnel syndrome Carpal tunnel syndrome Status post carpal tunnel release- Primary Other postprocedural status documented in this encounter [facility]* Diagnosis Pulmonary hypertension ([facility] Primary Other chronic pulmonary heart diseases [facility] Diagnosis Mild episode of recurrent major depressive disorder (HCC) ([facility])- Primary Type 2 diabetes mellitus with microalbuminuria, with long-term current use of insulin ([facility]) JOHN (generalized anxiety disorder) ([facility]) Generalized anxiety disorder Migraine without aura and without status migrainosus, not intractable ([facility]) Irritable bowel syndrome with diarrhea Irritable bowel syndrome Gastroesophageal reflux disease without esophagitis Esophageal reflux Hot flashes due to menopause Morbid obesity ([facility]) Morbid obesity long-term (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 insulin (Z79.4) Obesity hypoventilation syndrome ([facility])- Primary Obesity hypoventilation syndrome Hypoxia Hypoxemia Type 2 diabetes mellitus with microalbuminuria, with long-term current use of insulin ([facility]) Right carpal tunnel syndrome Carpal tunnel syndrome Elevated blood-pressure reading without diagnosis of hypertension Elevated blood pressure reading without diagnosis of hypertension Type 2 diabetes mellitus with hyperglycemia, with long-term current use of insulin ([facility])- Primary Mild episode of recurrent major depressive disorder (HCC) ([facility]) JOHN (generalized anxiety disorder) ([facility]) Generalized anxiety disorder Carpal tunnel syndrome of left wrist Obesity hypoventilation syndrome ([facility]) Obesity hypoventilation syndrome Generalized edema Edema Irritable bowel syndrome with diarrhea Irritable bowel syndrome Gastroesophageal reflux disease without esophagitis Esophageal reflux Anxiety state ([facility]) Anxiety state, unspecified Type 2 diabetes mellitus with hyperglycemia, with long-term current use of insulin ([facility])- Primary Right carpal tunnel syndrome Carpal tunnel syndrome Chronic hypoxic respiratory failure ([facility]) Mild episode of recurrent major depressive disorder (HCC) ([facility]) JOHN (generalized anxiety disorder) ([facility] Generalized anxiety disorder Generalized edema 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 Spondylosis of unspecified site without mention of myelopathy 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 elsewhere ([facility]) Acute pain of right knee- Primary Type 2 diabetes mellitus with microalbuminuria, with long-term current use of insulin ([facility] Right carpal tunnel syndrome Carpal tunnel syndrome Anxiety state ([facility]) Anxiety state, unspecified documented in this encounter [facility]* Diagnosis Mild episode of recurrent major depressive disorder (HCC) ([facility])- Primary Type 2 diabetes mellitus with microalbuminuria, with long-term current use of insulin ([facility]) JOHN (generalized anxiety disorder) ([facility]) Generalized anxiety disorder Migraine without aura and without status migrainosus, not intractable ([facility]) Irritable bowel syndrome with diarrhea Irritable bowel syndrome Gastroesophageal reflux disease without esophagitis Esophageal reflux Hot flashes due to menopause Morbid obesity ([facility]) Morbid obesity long-term (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 insulin (Z79.4) Obesity hypoventilation syndrome ([facility])- Primary Obesity hypoventilation syndrome Hypoxia Hypoxemia Type 2 diabetes mellitus with microalbuminuria, with long-term current use of insulin ([facility]) Right carpal tunnel syndrome Carpal tunnel syndrome Elevated blood-pressure reading without diagnosis of hypertension Elevated blood pressure reading without diagnosis of hypertension Type 2 diabetes mellitus with hyperglycemia, with long-term current use of insulin ([facility])- Primary Mild episode of recurrent major depressive disorder (HCC) ([facility]) JOHN (generalized anxiety disorder) ([facility]) Generalized anxiety disorder Carpal tunnel syndrome of left wrist Obesity hypoventilation syndrome ([facility]) Obesity hypoventilation syndrome Generalized edema Edema Irritable bowel syndrome with diarrhea Irritable bowel syndrome Gastroesophageal reflux disease without esophagitis Esophageal reflux Anxiety state ([facility]) Anxiety state, unspecified Type 2 diabetes mellitus with hyperglycemia, with long-term current use of insulin ([facility])- Primary Right carpal tunnel syndrome Carpal tunnel syndrome Chronic hypoxic respiratory failure ([facility]) Mild episode of recurrent major depressive disorder (HCC) ([facility]) JOHN (generalized anxiety disorder) ([facility] Generalized anxiety disorder Generalized edema 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 Spondylosis of unspecified site without mention of myelopathy 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 elsewhere ([facility]) Acute pain of right knee- Primary Type 2 diabetes mellitus with microalbuminuria, with long-term current use of insulin ([facility]) Right carpal tunnel syndrome Carpal tunnel syndrome Status post carpal tunnel release- Primary Other postprocedural status documented in this encounter [facility]* Diagnosis Mild episode of recurrent major depressive disorder (HCC) ([facility])- Primary Type 2 diabetes mellitus with microalbuminuria, with long-term current use of insulin ([facility]) JOHN (generalized anxiety disorder) ([facility]) Generalized anxiety disorder Migraine without aura and without status migrainosus, not intractable ([facility]) Irritable bowel syndrome with diarrhea Irritable bowel syndrome Gastroesophageal reflux disease without esophagitis Esophageal reflux Hot flashes due to menopause Morbid obesity ([facility]) 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) Obesity hypoventilation syndrome ([facility])- Primary Obesity hypoventilation syndrome Hypoxia Hypoxemia Type 2 diabetes mellitus with microalbuminuria, with long-term current use of insulin ([facility]) Right carpal tunnel syndrome Carpal tunnel syndrome Elevated blood-pressure reading without diagnosis of hypertension Elevated blood pressure reading without diagnosis of hypertension Type 2 diabetes mellitus with hyperglycemia, with long-term current use of insulin ([facility])- Primary Mild episode of recurrent major depressive disorder (HCC) ([facility]) JOHN (generalized anxiety disorder) ([facility]) Generalized anxiety disorder Carpal tunnel syndrome of left wrist Obesity hypoventilation syndrome ([facility]) Obesity hypoventilation syndrome Generalized edema Edema Irritable bowel syndrome with diarrhea Irritable bowel syndrome Gastroesophageal reflux disease without esophagitis Esophageal reflux Anxiety state ([facility]) Anxiety state, unspecified Type 2 diabetes mellitus with hyperglycemia, with long-term current use of insulin ([facility])- Primary Right carpal tunnel syndrome Carpal tunnel syndrome Chronic hypoxic respiratory failure ([facility]) Mild episode of recurrent major depressive disorder (HCC) ([facility]) JOHN (generalized anxiety disorder) ([facility] Generalized anxiety disorder Generalized edema 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 Spondylosis of unspecified site without mention of myelopathy 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 elsewhere ([facility]) Acute pain of right knee- Primary Type 2 diabetes mellitus with microalbuminuria, with long-term current use of insulin ([facility]) Right carpal tunnel syndrome Carpal tunnel syndrome Type 2 diabetes mellitus with hyperglycemia, with long-term current use of insulin ([facility]) documented in this encounter [facility] HealthcareEvaluation note* Diagnosis Mild episode of recurrent major depressive disorder (HCC) ([facility])- Primary Type 2 diabetes mellitus with microalbuminuria, with long-term current use of insulin ([facility]) JOHN (generalized anxiety disorder) ([facility]) Generalized anxiety disorder Migraine without aura and without status migrainosus, not intractable ([facility]) Irritable bowel syndrome with diarrhea Irritable bowel syndrome Gastroesophageal reflux disease without esophagitis Esophageal reflux Hot flashes due to menopause Morbid obesity ([facility]) 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) Obesity hypoventilation syndrome ([facility])- Primary Obesity hypoventilation syndrome Hypoxia Hypoxemia Type 2 diabetes mellitus with microalbuminuria, with long-term current use of insulin ([facility]) Right carpal tunnel syndrome Carpal tunnel syndrome Elevated blood-pressure reading without diagnosis of hypertension Elevated blood pressure reading without diagnosis of hypertension Type 2 diabetes mellitus with hyperglycemia, with long-term current use of insulin ([facility])- Primary Mild episode of recurrent major depressive disorder (HCC) ([facility]) JOHN (generalized anxiety disorder) ([facility]) Generalized anxiety disorder Carpal tunnel syndrome of left wrist Obesity hypoventilation syndrome ([facility] Obesity hypoventilation syndrome Generalized edema Edema Irritable bowel syndrome with diarrhea Irritable bowel syndrome Gastroesophageal reflux disease without esophagitis Esophageal reflux Anxiety state ([facility] Anxiety state, unspecified Type 2 diabetes mellitus with hyperglycemia, with long-term current use of insulin ([facility] Primary Right carpal tunnel syndrome Carpal tunnel syndrome Chronic hypoxic respiratory failure ([facility]) Mild episode of recurrent major depressive disorder (HCC) ([facility]) JOHN (generalized anxiety disorder) ([facility]) Generalized anxiety disorder Generalized edema 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 Spondylosis of unspecified site without mention of myelopathy 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 elsewhere ([facility]) Acute pain of right knee- Primary Type 2 diabetes mellitus with microalbuminuria, with long-term current use of insulin ([facility]) Right carpal tunnel syndrome Carpal tunnel syndrome Chronic hypoxic respiratory failure ([facility] Primary Chronic heart failure with preserved ejection fraction (HFpEF) ([facility]) Type 2 diabetes mellitus with hyperglycemia, with long-term current use of insulin ([facility]) Pulmonary hypertension ([facility]) Other chronic pulmonary heart diseases Colon cancer screening Special screening for malignant neoplasms, colon Gastroesophageal reflux disease without esophagitis Esophageal reflux documented in this encounter [facility] HealthcareEvaluation note* Diagnosis Mild episode of recurrent major depressive disorder (HCC) ([facility])- Primary Type 2 diabetes mellitus with microalbuminuria, with long-term current use of insulin ([facility]) JOHN (generalized anxiety disorder) ([facility]) Generalized anxiety disorder Migraine without aura and without status migrainosus, not intractable ([facility]) Irritable bowel syndrome with diarrhea Irritable bowel syndrome Gastroesophageal reflux disease without esophagitis Esophageal reflux Hot flashes due to menopause Morbid obesity ([facility]) Morbid obesity long-term (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 insulin (Z79.4) Obesity hypoventilation syndrome ([facility])- Primary Obesity hypoventilation syndrome Hypoxia Hypoxemia Type 2 diabetes mellitus with microalbuminuria, with long-term current use of insulin ([facility]) Right carpal tunnel syndrome Carpal tunnel syndrome Elevated blood-pressure reading without diagnosis of hypertension Elevated blood pressure reading without diagnosis of hypertension Type 2 diabetes mellitus with hyperglycemia, with long-term current use of insulin ([facility])- Primary Mild episode of recurrent major depressive disorder (HCC) ([facility] JOHN (generalized anxiety disorder) ([facility]) Generalized anxiety disorder Carpal tunnel syndrome of left wrist Obesity hypoventilation syndrome ([facility]) Obesity hypoventilation syndrome Generalized edema Edema Irritable bowel syndrome with diarrhea Irritable bowel syndrome Gastroesophageal reflux disease without esophagitis Esophageal reflux Anxiety state ([facility]) Anxiety state, unspecified Type 2 diabetes mellitus with hyperglycemia, with long-term current use of insulin ([facility])- Primary Right carpal tunnel syndrome Carpal tunnel syndrome Chronic hypoxic respiratory failure ([facility]) Mild episode of recurrent major depressive disorder (HCC) ([facility] JOHN (generalized anxiety disorder) ([facility]) Generalized anxiety disorder Generalized edema 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 Spondylosis of unspecified site without mention of myelopathy 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 elsewhere ([facility]) Acute pain of right knee- Primary Type 2 diabetes mellitus with microalbuminuria, with long-term current use of insulin ([facility]) Right carpal tunnel syndrome Carpal tunnel syndrome Well woman exam with routine gynecological exam Routine gynecological examination Chronic hypoxic respiratory failure ([facility])- Primary Chronic heart failure with preserved ejection fraction (HFpEF) ([facility]) Type 2 diabetes mellitus with hyperglycemia, with long-term current use of insulin ([facility]) Pulmonary hypertension ([facility]) Other chronic pulmonary heart diseases Colon cancer screening Special screening for malignant neoplasms, colon Gastroesophageal reflux disease without esophagitis Esophageal reflux documented in this encounter [facility] HealthcareEvaluation note* Diagnosis Type 2 diabetes mellitus with hyperglycemia, with long-term current use of insulin ([facility])- Primary Carpal tunnel syndrome of left wrist Anxiety state ([facility]) Anxiety state, unspecified documented in this encounter [facility] HealthcareEvaluation note* Diagnosis Mild episode of recurrent major depressive disorder (HCC) ([facility])- Primary Type 2 diabetes mellitus with microalbuminuria, with long-term current use of insulin ([facility]) JOHN (generalized anxiety disorder) ([facility]) Generalized anxiety disorder Migraine without aura and without status migrainosus, not intractable ([facility]) Irritable bowel syndrome with diarrhea Irritable bowel syndrome Gastroesophageal reflux disease without esophagitis Esophageal reflux Hot flashes due to menopause Morbid obesity ([facility]) Morbid obesity long-term (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 insulin (Z79.4) Obesity hypoventilation syndrome ([facility])- Primary Obesity hypoventilation syndrome Hypoxia Hypoxemia Type 2 diabetes mellitus with microalbuminuria, with long-term current use of insulin ([facility]) Right carpal tunnel syndrome Carpal tunnel syndrome Elevated blood-pressure reading without diagnosis of hypertension Elevated blood pressure reading without diagnosis of hypertension Type 2 diabetes mellitus with hyperglycemia, with long-term current use of insulin ([facility])- Primary Mild episode of recurrent major depressive disorder (HCC) ([facility]) JOHN (generalized anxiety disorder) ([facility]) Generalized anxiety disorder Carpal tunnel syndrome of left wrist Obesity hypoventilation syndrome ([facility]) Obesity hypoventilation syndrome Generalized edema Edema Irritable bowel syndrome with diarrhea Irritable bowel syndrome Gastroesophageal reflux disease without esophagitis Esophageal reflux Anxiety state ([facility]) Anxiety state, unspecified Type 2 diabetes mellitus with hyperglycemia, with long-term current use of insulin ([facility])- Primary Right carpal tunnel syndrome Carpal tunnel syndrome Chronic hypoxic respiratory failure ([facility]) Mild episode of recurrent major depressive disorder (HCC) ([facility]) JOHN (generalized anxiety disorder) ([facility] Generalized anxiety disorder Generalized edema 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 Spondylosis of unspecified site without mention of myelopathy 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 elsewhere ([facility]) Acute pain of right knee- Primary Type 2 diabetes mellitus with microalbuminuria, with long-term current use of insulin ([facility]) Right carpal tunnel syndrome Carpal tunnel syndrome Chronic hypoxic respiratory failure ([facility])- Primary Chronic heart failure with preserved ejection fraction (HFpEF) ([facility]) Type 2 diabetes mellitus with hyperglycemia, with long-term current use of insulin ([facility]) Pulmonary hypertension ([facility]) Other chronic pulmonary heart diseases Colon cancer screening Special screening for malignant neoplasms, colon Gastroesophageal reflux disease without esophagitis Esophageal reflux Carpal tunnel syndrome of left wrist documented in this encounter [facility]* Diagnosis Encounter to discuss test results Other specified counseling documented in this encounter [facility]* Diagnosis Type 2 diabetes mellitus with hyperglycemia, with long-term current use of insulin ([facility])- Primary Right carpal tunnel syndrome Carpal tunnel syndrome Chronic hypoxic respiratory failure ([facility]) Mild episode of recurrent major depressive disorder (HCC) ([facility]) JOHN (generalized anxiety disorder) ([facility]) Generalized anxiety disorder Generalized edema 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 Spondylosis of unspecified site without mention of myelopathy 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 elsewhere ([facility]) documented in this encounter [facility]* Diagnosis Acute pain of right knee- Primary Type 2 diabetes mellitus with microalbuminuria, with long-term current use of insulin ([facility]) Right carpal tunnel syndrome Carpal tunnel syndrome documented in this encounter [facility]* Diagnosis Right wrist pain Pain in joint, forearm Carpal tunnel syndrome, right Carpal tunnel syndrome documented in this encounter [facility]* Diagnosis Mild episode of recurrent major depressive disorder (HCC) ([facility])- Primary Type 2 diabetes mellitus with microalbuminuria, with long-term current use of insulin (CMS/HCC) JOHN (generalized anxiety disorder) (CMS/HCC) Generalized anxiety disorder Migraine without aura and without status migrainosus, not intractable (CMS/HCC) Irritable bowel syndrome with diarrhea Irritable bowel syndrome Gastroesophageal reflux disease without esophagitis Esophageal reflux Hot flashes due to menopause Morbid obesity (CMS/HCC) 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) Obesity hypoventilation [...] microalbuminuria, with long-term current use of insulin ([facility]) JOHN (generalized anxiety disorder) ([facility]) Generalized anxiety disorder Migraine without aura and without status migrainosus, not intractable ([facility]) Irritable bowel syndrome with diarrhea Irritable bowel syndrome Gastroesophageal reflux disease without esophagitis Esophageal reflux Hot flashes due to menopause Morbid obesity ([facility]) 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) Obesity hypoventilation syndrome ([facility])- Primary Obesity hypoventilation syndrome Hypoxia Hypoxemia Type 2 diabetes mellitus with microalbuminuria, with long-term current use of insulin ([facility]) Right carpal tunnel syndrome Carpal tunnel syndrome Elevated blood-pressure reading without diagnosis of hypertension Elevated blood pressure reading without diagnosis of hypertension Type 2 diabetes mellitus with hyperglycemia, with long-term current use of insulin ([facility])- Primary Mild episode of recurrent major depressive disorder (HCC) ([facility] JOHN (generalized anxiety disorder) ([facility]) Generalized anxiety disorder Carpal tunnel syndrome of left wrist Obesity hypoventilation syndrome ([facility]) Obesity hypoventilation syndrome Generalized edema Edema Irritable bowel syndrome with diarrhea Irritable bowel syndrome Gastroesophageal reflux disease without esophagitis Esophageal reflux Anxiety state ([facility]) Anxiety state, unspecified Type 2 diabetes mellitus with hyperglycemia, with long-term current use of insulin ([facility])- Primary Right carpal tunnel syndrome Carpal tunnel syndrome Chronic hypoxic respiratory failure ([facility]) Mild episode of recurrent major depressive disorder (HCC) ([facility]) JOHN (generalized anxiety disorder) ([facility] Generalized anxiety disorder Generalized edema 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 Spondylosis of unspecified site without mention of myelopathy 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 elsewhere ([facility]) Acute pain of right knee- Primary Type 2 diabetes mellitus with microalbuminuria, with long-term current use of insulin ([facility]) Right carpal tunnel syndrome Carpal tunnel syndrome Chronic hypoxic respiratory failure ([facility])- Primary Chronic heart failure with preserved ejection fraction (HFpEF) ([facility]) Type 2 diabetes mellitus with hyperglycemia, with long-term current use of insulin ([facility] Pulmonary hypertension ([facility]) Other chronic pulmonary heart diseases Colon cancer screening Special screening for malignant neoplasms, colon Gastroesophageal reflux disease without esophagitis Esophageal reflux Type 2 diabetes mellitus with microalbuminuria, with long-term current use of insulin ([facility]) documented in this encounter [facility] HealthcareEvaluation note* Diagnosis Mild episode of recurrent major depressive disorder (HCC) ([facility])- Primary Type 2 diabetes mellitus with microalbuminuria, with long-term current use of insulin ([facility]) JOHN (generalized anxiety disorder) ([facility]) Generalized anxiety disorder Migraine without aura and without status migrainosus, not intractable ([facility]) Irritable bowel syndrome with diarrhea Irritable bowel syndrome Gastroesophageal reflux disease without esophagitis Esophageal reflux Hot flashes due to menopause Morbid obesity ([facility] 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) Obesity hypoventilation syndrome ([facility])- Primary Obesity hypoventilation syndrome Hypoxia Hypoxemia Type 2 diabetes mellitus with microalbuminuria, with long-term current use of insulin ([facility]) Right carpal tunnel syndrome Carpal tunnel syndrome Elevated blood-pressure reading without diagnosis of hypertension Elevated blood pressure reading without diagnosis of hypertension Type 2 diabetes mellitus with hyperglycemia, with long-term current use of insulin ([facility])- Primary Mild episode of recurrent major depressive disorder (HCC) ([facility]) JOHN (generalized anxiety disorder) ([facility]) Generalized anxiety disorder Carpal tunnel syndrome of left wrist Obesity hypoventilation syndrome ([facility]) Obesity hypoventilation syndrome Generalized edema Edema Irritable bowel syndrome with diarrhea Irritable bowel syndrome Gastroesophageal reflux disease without esophagitis Esophageal reflux Anxiety state ([facility]) Anxiety state, unspecified Type 2 diabetes mellitus with hyperglycemia, with long-term current use of insulin ([facility])- Primary Right carpal tunnel syndrome Carpal tunnel syndrome Chronic hypoxic respiratory failure ([facility]) Mild episode of recurrent major depressive disorder (HCC) ([facility]) JOHN (generalized anxiety disorder) ([facility] Generalized anxiety disorder Generalized edema 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 Spondylosis of unspecified site without mention of myelopathy 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 elsewhere ([facility]) Acute pain of right knee- Primary Type 2 diabetes mellitus with microalbuminuria, with long-term current use of insulin ([facility]) Right carpal tunnel syndrome Carpal tunnel syndrome Chronic hypoxic respiratory failure ([facility])- Primary Chronic heart failure with preserved ejection fraction (HFpEF) ([facility]) Type 2 diabetes mellitus with hyperglycemia, with long-term current use of insulin ([facility]) Pulmonary hypertension ([facility]/HCC) Other chronic pulmonary heart diseases Colon cancer screening Special screening for malignant neoplasms, colon Gastroesophageal reflux disease without esophagitis Esophageal reflux Type 2 diabetes mellitus with hyperglycemia, with long-term current use of insulin ([facility]) documented in this encounter [facility] HealthcareEvaluation note* Diagnosis Dyspnea on exertion- Primary Other dyspnea and respiratory abnormality Chronic heart failure with preserved ejection fraction ([facility]) Type 2 diabetes mellitus with hyperglycemia, with long-term current use of insulin ([facility] Diagnosis Mild episode of recurrent major depressive disorder (HCC) ([facility])- Primary Type 2 diabetes mellitus with microalbuminuria, with long-term current use of insulin ([facility]) JOHN (generalized anxiety disorder) ([facility] Generalized anxiety disorder Migraine without aura and without status migrainosus, not intractable ([facility]) Irritable bowel syndrome with diarrhea Irritable bowel syndrome Gastroesophageal reflux disease without esophagitis Esophageal reflux Hot flashes due to menopause Morbid obesity ([facility]) 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) Obesity hypoventilation syndrome ([facility])- Primary Obesity hypoventilation syndrome Hypoxia Hypoxemia Type 2 diabetes mellitus with microalbuminuria, with long-term current use of insulin ([facility]) Right carpal tunnel syndrome Carpal tunnel syndrome Elevated blood-pressure reading without diagnosis of hypertension Elevated blood pressure reading without diagnosis of hypertension Type 2 diabetes mellitus with hyperglycemia, with long-term current use of insulin ([facility])- Primary Mild episode of recurrent major depressive disorder (HCC) ([facility]) JOHN (generalized anxiety disorder) ([facility]) Generalized anxiety disorder Carpal tunnel syndrome of left wrist Obesity hypoventilation syndrome ([facility]) Obesity hypoventilation syndrome Generalized edema Edema Irritable bowel syndrome with diarrhea Irritable bowel syndrome Gastroesophageal reflux disease without esophagitis Esophageal reflux Anxiety state ([facility]) Anxiety state, unspecified Type 2 diabetes mellitus with hyperglycemia, with long-term current use of insulin ([facility])- Primary Right carpal tunnel syndrome Carpal tunnel syndrome Chronic hypoxic respiratory failure ([facility] Mild episode of recurrent major depressive disorder (HCC) ([facility] JOHN (generalized anxiety disorder) ([facility] Generalized anxiety disorder Generalized edema 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 Spondylosis of unspecified site without mention of myelopathy 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 elsewhere ([facility]) Acute pain of right knee- Primary Type 2 diabetes mellitus with microalbuminuria, with long-term current use of insulin ([facility]/HCC) Right carpal tunnel syndrome Carpal tunnel syndrome Chronic hypoxic respiratory failure ([facility]/HCC)- Primary Chronic heart failure with preserved ejection fraction (HFpEF) ([facility]) Type 2 diabetes mellitus with hyperglycemia, with long-term current use of insulin ([facility]/HCC) Pulmonary hypertension ([facility]) Other chronic pulmonary heart diseases Colon cancer screening Special screening for malignant neoplasms, colon Gastroesophageal reflux disease without esophagitis Esophageal reflux Diabetic polyneuropathy associated with type 2 diabetes mellitus ([facility]/HCC)- Primary Neuritis Unspecified neuralgia, neuritis, and radiculitis [facility] Cav[facility] Mediastinal lymphadenopathy- Primary Enlargement of lymph nodes [facility] Diagnosis Mediastinal lymphadenopathy- Primary Enlargement of lymph nodes Pulmonary nodule Other diseases of lung, not elsewhere classified Morbid obesity ([facility]) Morbid obesity [facility] Diagnosis Type 2 diabetes mellitus with hyperglycemia, with long-term current use of insulin ([facility] Primary Hyperglycemia Other abnormal glucose Acute cystitis without hematuria Hypoxia Hypoxemia Hyperglycemia Other abnormal glucose Obstructive sleep apnea syndrome Obstructive sleep apnea (adult) (pediatric) Severe obesity (BMI >= 40) ([facility]) Hyperlipidemia associated with type 2 diabetes mellitus ([facility] Acute cystitis without hematuria [facility] Diagnosis Chronic hypoxic respiratory failure ([facility])- Primary Obstructive sleep apnea syndrome Obstructive sleep apnea (adult) (pediatric) Pulmonary nodule Other diseases of lung, not elsewhere classified Moderate persistent asthma without complication [facility] Diagnosis Moderate persistent asthma without complication [facility] Diagnosis Mediastinal lymphadenopathy- Primary Enlargement of lymph nodes Hypoxia Hypoxemia Pulmonary nodule Other diseases of lung, not elsewhere classified Severe obesity (BMI >= 40) ([facility]) Dyspnea on exertion Other dyspnea and respiratory abnormality [facility] Diagnosis Dyspnea on exertion- Primary Other dyspnea and respiratory abnormality Chronic hypoxic respiratory failure ([facility] Moderate persistent asthma without complication [facility] Diagnosis Chronic hypoxic respiratory failure ([facility])- Primary SOB (shortness of breath) Shortness of breath Hypoxia Hypoxemia [facility] Diagnosis JOSE M (obstructive sleep apnea)- Primary Obstructive sleep apnea (adult) (pediatric) Chronic hypoxic respiratory failure ([facility] Severe obesity (BMI >= 40) ([facility]) [facility] Diagnosis Chronic hypoxic respiratory failure ([facility])- Primary SOB (shortness of breath) Shortness of breath Hypoxia Hypoxemia [facility] Diagnosis Moderate persistent asthma without complication- Primary Obstructive sleep apnea syndrome Obstructive sleep apnea (adult) (pediatric) Pulmonary nodule Other diseases of lung, not elsewhere classified Chronic hypoxic respiratory failure ([facility] Diagnosis Dyspnea on exertion- Primary Other dyspnea and respiratory abnormality Pulmonary hypertension ([facility]) Other chronic pulmonary heart diseases [facility] Diagnosis JOSE M (obstructive sleep apnea) Obstructive sleep apnea (adult) (pediatric) Chronic hypoxic respiratory failure ([facility]) Severe obesity (BMI >= 40) ([facility]) [facility] Diagnosis Mild episode of recurrent major depressive disorder (HCC) ([facility])- Primary Type 2 diabetes mellitus with microalbuminuria, with long-term current use of insulin ([facility]) JOHN (generalized anxiety disorder) [place] Generalized anxiety disorder Migraine without aura and without status migrainosus, not intractable ([facility]) Irritable bowel syndrome with diarrhea Irritable bowel syndrome Gastroesophageal reflux disease without esophagitis Esophageal reflux Hot flashes due to menopause Morbid obesity ([facility] Morbid obesity long-term (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 insulin (Z79.4) Obesity hypoventilation syndrome ([facility])- Primary Obesity hypoventilation syndrome Hypoxia Hypoxemia Type 2 diabetes mellitus with microalbuminuria, with long-term current use of insulin ([facility]) Right carpal tunnel syndrome Carpal tunnel syndrome Elevated blood-pressure reading without diagnosis of hypertension Elevated blood pressure reading without diagnosis of hypertension Type 2 diabetes mellitus with hyperglycemia, with long-term current use of insulin ([facility])- Primary Mild episode of recurrent major depressive disorder (HCC) ([facility]) JOHN (generalized anxiety disorder) ([facility] Generalized anxiety disorder Carpal tunnel syndrome of left wrist Obesity hypoventilation syndrome ([facility]/HCC) Obesity hypoventilation syndrome Generalized edema Edema Irritable bowel syndrome with diarrhea Irritable bowel syndrome Gastroesophageal reflux disease without esophagitis Esophageal reflux Anxiety state ([facility]) Anxiety state, unspecified Type 2 diabetes mellitus with hyperglycemia, with long-term current use of insulin ([facility])- Primary Right carpal tunnel syndrome Carpal tunnel syndrome Chronic hypoxic respiratory failure ([facility]) Mild episode of recurrent major depressive disorder (HCC) ([facility]) JOHN (generalized anxiety disorder) ([facility] Generalized anxiety disorder Generalized edema 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 Spondylosis of unspecified site without mention of myelopathy 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 elsewhere ([facility]) Acute pain of right knee- Primary Type 2 diabetes mellitus with microalbuminuria, with long-term current use of insulin ([facility]) Right carpal tunnel syndrome Carpal tunnel syndrome Chronic hypoxic respiratory failure ([facility])- Primary Chronic heart failure with preserved ejection fraction (HFpEF) ([facility]) Type 2 diabetes mellitus with hyperglycemia, with long-term current use of insulin ([facility] Pulmonary hypertension ([facility]) Other chronic pulmonary heart diseases Colon cancer screening Special screening for malignant neoplasms, colon Gastroesophageal reflux disease without esophagitis Esophageal reflux Dehydration- Primary Nausea and vomiting, unspecified vomiting type Type 2 diabetes mellitus with hyperglycemia, with long-term current use of insulin ([facility]) Class 3 severe obesity due to excess calories with serious comorbidity and body mass index (BMI) of40.0 to 44.9 in adult ([facility] Chronic hypoxic respiratory failure ([facility]) Chronic heart failure with preserved ejection fraction (HFpEF) ([facility] Diagnosis Mild episode of recurrent major depressive disorder (HCC) ([facility])- Primary Type 2 diabetes mellitus with microalbuminuria, with long-term current use of insulin ([facility]) JOHN (generalized anxiety disorder) ([facility]) Generalized anxiety disorder Migraine without aura and without status migrainosus, not intractable ([facility]) Irritable bowel syndrome with diarrhea Irritable bowel syndrome Gastroesophageal reflux disease without esophagitis Esophageal reflux Hot flashes due to menopause Morbid obesity (CMS/HCC) 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) Obesity hypoventilation syndrome ([facility]/HCC)- Primary Obesity hypoventilation syndrome Hypoxia Hypoxemia Type 2 diabetes mellitus with microalbuminuria, with long-term current use of insulin ([facility]) Right carpal tunnel syndrome Carpal tunnel syndrome Elevated blood-pressure reading without diagnosis of hypertension Elevated blood pressure reading without diagnosis of hypertension Type 2 diabetes mellitus with hyperglycemia, with long-term current use of insulin ([facility])- Primary Mild episode of recurrent major depressive disorder (HCC) ([facility]) JOHN (generalized anxiety disorder) ([facility]) Generalized anxiety disorder Carpal tunnel syndrome of left wrist Obesity hypoventilation syndrome ([facility]) Obesity hypoventilation syndrome Generalized edema Edema Irritable bowel syndrome with diarrhea Irritable bowel syndrome Gastroesophageal reflux disease without esophagitis Esophageal reflux Anxiety state ([facility]) Anxiety state, unspecified Type 2 diabetes mellitus with hyperglycemia, with long-term current use of insulin ([facility])- Primary Right carpal tunnel syndrome Carpal tunnel syndrome Chronic hypoxic respiratory failure ([facility]) Mild episode of recurrent major depressive disorder (HCC) ([facility]) JOHN (generalized anxiety disorder) ([facility] Generalized anxiety disorder Generalized edema 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 Spondylosis of unspecified site without mention of myelopathy 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 elsewhere ([facility]) Acute pain of right knee- Primary Type 2 diabetes mellitus with microalbuminuria, with long-term current use of insulin ([facility]) Right carpal tunnel syndrome Carpal tunnel syndrome Chronic hypoxic respiratory failure ([facility])- Primary Chronic heart failure with preserved ejection fraction (HFpEF) ([facility]) Type 2 diabetes mellitus with hyperglycemia, with long-term current use of insulin ([facility] Pulmonary hypertension ([facility]) Other chronic pulmonary heart diseases Colon cancer screening Special screening for malignant neoplasms, colon Gastroesophageal reflux disease without esophagitis Esophageal reflux Dehydration- Primary Nausea and vomiting, unspecified vomiting type Type 2 diabetes mellitus with hyperglycemia, with long-term current use of insulin ([facility]) Class 3 severe obesity due to excess calories with serious comorbidity and body mass index (BMI) of40.0 to 44.9 in adult ([facility] Chronic hypoxic respiratory failure ([facility] Chronic heart failure with preserved ejection fraction (HFpEF) ([facility]) Type 2 diabetes mellitus with hyperglycemia, with long-term current use of insulin ([facility])- Primary Chronic heart failure with preserved ejection fraction (HFpEF) ([facility]) Mild episode of recurrent major depressive disorder (HCC) ([facility]) JOHN (generalized anxiety disorder) ([facility]) Generalized anxiety disorder Gastroesophageal reflux disease without esophagitis Esophageal reflux Class 3 severe obesity due to excess calories with serious comorbidity and body mass index (BMI) of40.0 to 44.9 in adult ([facility]) documented in this encounter [facility]* Diagnosis Obstructive sleep apnea syndrome- Primary Obstructive sleep apnea (adult) (pediatric) Noncompliance with CPAP treatment Chronic hypoxic respiratory failure, on home oxygen therapy ([facility]) Obesity, Class III, BMI 40-49.9 (morbid obesity) ([facility]) [facility] Diagnosis Chronic heart failure with preserved ejection fraction ([facility])- Primary Primary hypertension Unspecified essential hypertension Dyspnea on exertion Other dyspnea and respiratory abnormality Hyperlipidemia associated with type 2 diabetes mellitus ([facility]) [facility] Diagnosis Mild episode of recurrent major depressive disorder (HCC) ([facility])- Primary Type 2 diabetes mellitus with microalbuminuria, with long-term current use of insulin ([facility]) JOHN (generalized anxiety disorder) ([facility]) Generalized anxiety disorder Migraine without aura and without status migrainosus, not intractable ([facility]) Irritable bowel syndrome with diarrhea Irritable bowel syndrome Gastroesophageal reflux disease without esophagitis Esophageal reflux Hot flashes due to menopause Morbid obesity ([facility]) 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) Obesity hypoventilation syndrome ([facility])- Primary Obesity hypoventilation syndrome Hypoxia Hypoxemia Type 2 diabetes mellitus with microalbuminuria, with long-term current use of insulin ([facility]) Right carpal tunnel syndrome Carpal tunnel syndrome Elevated blood-pressure reading without diagnosis of hypertension Elevated blood pressure reading without diagnosis of hypertension Type 2 diabetes mellitus with hyperglycemia, with long-term current use of insulin ([facility])- Primary Mild episode of recurrent major depressive disorder (HCC) ([facility]) JOHN (generalized anxiety disorder) ([facility]) Generalized anxiety disorder Carpal tunnel syndrome of left wrist Obesity hypoventilation syndrome ([facility]) Obesity hypoventilation syndrome Generalized edema Edema Irritable bowel syndrome with diarrhea Irritable bowel syndrome Gastroesophageal reflux disease without esophagitis Esophageal reflux Anxiety state ([facility]) Anxiety state, unspecified Type 2 diabetes mellitus with hyperglycemia, with long-term current use of insulin ([facility])- Primary Right carpal tunnel syndrome Carpal tunnel syndrome Chronic hypoxic respiratory failure ([facility]) Mild episode of recurrent major depressive disorder (HCC) ([facility]) JOHN (generalized anxiety disorder) ([facility] Generalized anxiety disorder Generalized edema 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 Spondylosis of unspecified site without mention of myelopathy 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 elsewhere ([facility]) Acute pain of right knee- Primary Type 2 diabetes mellitus with microalbuminuria, with long-term current use of insulin ([facility] [facility] Right carpal tunnel syndrome Carpal tunnel syndrome Chronic hypoxic respiratory failure ([facility] Primary Chronic heart failure with preserved ejection fraction (HFpEF) ([facility]) Type 2 diabetes mellitus with hyperglycemia, with long-term current use of insulin ([facility] Pulmonary hypertension ([facility]) Other chronic pulmonary heart diseases Colon cancer screening Special screening for malignant neoplasms, colon Gastroesophageal reflux disease without esophagitis Esophageal reflux Dehydration- Primary Nausea and vomiting, unspecified vomiting type Type 2 diabetes mellitus with hyperglycemia, with long-term current use of insulin ([facility]) Class 3 severe obesity due to excess calories with serious comorbidity and body mass index (BMI) of40.0 to 44.9 in adult Chronic hypoxic respiratory failure ([facility]) Chronic heart failure with preserved ejection fraction (HFpEF) ([facility] Type 2 diabetes mellitus with hyperglycemia, with long-term current use of insulin ([facility] Primary Chronic heart failure with preserved ejection fraction (HFpEF) ([facility]) Mild episode of recurrent major depressive disorder (HCC) ([facility] JOHN (generalized anxiety disorder) ([facility]) Generalized anxiety disorder Gastroesophageal reflux disease without esophagitis Esophageal reflux Class 3 severe obesity due to excess calories with serious comorbidity and body mass index (BMI) of40.0 to 44.9 in adult Type 2 diabetes mellitus with hyperglycemia, with long-term current use of insulin ([facility] Primary Benign essential hypertension ([facility]) Essential hypertension, benign Mild episode of recurrent major depressive disorder (HCC) ([facility] JOHN (generalized anxiety disorder) ([facility]) Generalized anxiety disorder Chronic heart failure with preserved ejection fraction (HFpEF) ([facility]) Type 2 diabetes mellitus with microalbuminuria, with long-term current use of insulin ([facility]) Class 3 severe obesity due to excess calories with serious comorbidity and body mass index (BMI) of40.0 to 44.9 in adult Encounter for long-term (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 medications Encounter for long-term (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 other medications Dyslipidemia ([facility]) Other and unspecified hyperlipidemia Primary osteoarthritis of both knees documented in this encounter [facility] HealthcareEvaluation note* Diagnosis Mild episode of recurrent major depressive disorder- Primary Type 2 diabetes mellitus with microalbuminuria, with long-term current use of insulin ([facility]) JOHN (generalized anxiety disorder) Generalized anxiety disorder Migraine without aura and without status migrainosus, not intractable Irritable bowel syndrome with diarrhea Irritable bowel syndrome Gastroesophageal reflux disease without esophagitis Esophageal reflux Hot flashes due to menopause Morbid obesity ([facility]) Morbid obesity long-term (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 insulin (Z79.4) Obesity hypoventilation syndrome ([facility] Primary Obesity hypoventilation syndrome Hypoxia Hypoxemia Type 2 diabetes mellitus with microalbuminuria, with long-term current use of insulin ([facility]) Right carpal tunnel syndrome Carpal tunnel syndrome Elevated blood-pressure reading without diagnosis of hypertension Elevated blood pressure reading without diagnosis of hypertension Type 2 diabetes mellitus with hyperglycemia, with long-term current use of insulin ([facility])- Primary Mild episode of recurrent major depressive disorder JOHN (generalized anxiety disorder) Generalized anxiety disorder Carpal tunnel syndrome of left wrist Obesity hypoventilation syndrome ([facility]) Obesity hypoventilation syndrome Generalized edema Edema Irritable bowel syndrome with diarrhea Irritable bowel syndrome Gastroesophageal reflux disease without esophagitis Esophageal reflux Anxiety state Anxiety state, unspecified Type 2 diabetes mellitus with hyperglycemia, with long-term current use of insulin ([facility])- Primary Right carpal tunnel syndrome Carpal tunnel syndrome Chronic hypoxic respiratory failure (HCC) Mild episode of recurrent major depressive disorder JOHN (generalized anxiety disorder) Generalized anxiety disorder Generalized edema 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 Spondylosis of unspecified site without mention of myelopathy 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 elsewhere ([facility]) Acute pain of right knee- Primary Type 2 diabetes mellitus with microalbuminuria, with long-term current use of insulin ([facility]) Right carpal tunnel syndrome Carpal tunnel syndrome Chronic hypoxic respiratory failure (HCC)- Primary Chronic heart failure with preserved ejection fraction (HFpEF) ([facility]) Type 2 diabetes mellitus with hyperglycemia, with long-term current use of insulin ([facility]) Pulmonary hypertension ([facility]) Other chronic pulmonary heart diseases Colon cancer screening Special screening for malignant neoplasms, colon Gastroesophageal reflux disease without esophagitis Esophageal reflux Dehydration- Primary Nausea and vomiting, unspecified vomiting type Type 2 diabetes mellitus with hyperglycemia, with long-term current use of insulin ([facility]) Class 3 severe obesity due to excess calories with serious comorbidity and body mass index (BMI) of40.0 to 44.9 in adult ([facility]) Chronic hypoxic respiratory failure ([facility]) Chronic heart failure with preserved ejection fraction (HFpEF) ([facility]) Type 2 diabetes mellitus with hyperglycemia, with long-term current use of insulin ([facility])- Primary Chronic heart failure with preserved ejection fraction (HFpEF) ([facility]) Mild episode of recurrent major depressive disorder JOHN (generalized anxiety disorder) Generalized anxiety disorder Gastroesophageal reflux disease without esophagitis Esophageal reflux Class 3 severe obesity due to excess calories with serious comorbidity and body mass index (BMI) of40.0 to 44.9 in adult ([facility]) Type 2 diabetes mellitus with hyperglycemia, with long-term current use of insulin ([facility])- Primary Benign essential hypertension Essential hypertension, benign Mild episode of recurrent major depressive disorder JOHN (generalized anxiety disorder) Generalized anxiety disorder Chronic heart failure with preserved ejection fraction (HFpEF) ([facility]) Type 2 diabetes mellitus with microalbuminuria, with long-term current use of insulin ([facility]) Class 3 severe obesity due to excess calories with serious comorbidity and body mass index (BMI) of40.0 to 44.9 in adult ([facility]) Encounter for long-term (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 medications Encounter for long-term (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 other medications Dyslipidemia Other and unspecified hyperlipidemia Primary osteoarthritis of both knees Internal derangement of left knee- Primary Acute pain of left knee documented in this encounter [facility] HealthcareEvaluation note* Diagnosis Type 2 diabetes mellitus with hyperglycemia, with long-term current use of insulin ([facility])- Primary [facility] Diagnosis Moderate persistent asthma without complication- Primary Chronic hypoxic respiratory failure ([facility]) documented [facility]* Diagnosis Mild episode of recurrent major depressive disorder- Primary Type 2 diabetes mellitus with microalbuminuria, with long-term current use of insulin ([facility]) JONH (generalized anxiety disorder) Generalized anxiety disorder Migraine without aura and without status migrainosus, not intractable Irritable bowel syndrome with diarrhea Irritable bowel syndrome Gastroesophageal reflux disease without esophagitis Esophageal reflux Hot flashes due to menopause Morbid obesity ([facility]) Morbid obesity long-term (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 insulin (Z79.4) Obesity hypoventilation syndrome ([facility] Primary Obesity hypoventilation syndrome Hypoxia Hypoxemia Type 2 diabetes mellitus with microalbuminuria, with long-term current use of insulin (HCC) Right carpal tunnel syndrome Carpal tunnel syndrome Elevated blood-pressure reading without diagnosis of hypertension Elevated blood pressure reading without diagnosis of hypertension Type 2 diabetes mellitus with hyperglycemia, with long-term current use of insulin ([facility])- Primary Mild episode of recurrent major depressive disorder JOHN (generalized anxiety disorder) Generalized anxiety disorder Carpal tunnel syndrome of left wrist Obesity hypoventilation syndrome ([facility]) Obesity hypoventilation syndrome Generalized edema Edema Irritable bowel syndrome with diarrhea Irritable bowel syndrome Gastroesophageal reflux disease without esophagitis Esophageal reflux Anxiety state Anxiety state, unspecified Type 2 diabetes mellitus with hyperglycemia, with long-term current use of insulin ([facility])- Primary Right carpal tunnel syndrome Carpal tunnel syndrome Chronic hypoxic respiratory failure ([facility]) Mild episode of recurrent major depressive disorder JOHN (generalized anxiety disorder) Generalized anxiety disorder Generalized edema 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 Spondylosis of unspecified site without mention of myelopathy 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 elsewhere ([facility]) Acute pain of right knee- Primary Type 2 diabetes mellitus with microalbuminuria, with long-term current use of insulin ([facility]) Right carpal tunnel syndrome Carpal tunnel syndrome Chronic hypoxic respiratory failure ([facility])- Primary Chronic heart failure with preserved ejection fraction (HFpEF) ([facility]) Type 2 diabetes mellitus with hyperglycemia, with long-term current use of insulin ([facility]) Pulmonary hypertension ([facility]) Other chronic pulmonary heart diseases Colon cancer screening Special screening for malignant neoplasms, colon Gastroesophageal reflux disease without esophagitis Esophageal reflux Dehydration- Primary Nausea and vomiting, unspecified vomiting type Type 2 diabetes mellitus with hyperglycemia, with long-term current use of insulin ([facility]) Class 3 severe obesity due to excess calories with serious comorbidity and body mass index (BMI) of40.0 to 44.9 in adult ([facility]) Chronic hypoxic respiratory failure (HCC) Chronic heart failure with preserved ejection fraction (HFpEF) ([facility]) Type 2 diabetes mellitus with hyperglycemia, with long-term current use of insulin ([facility])- Primary Chronic heart failure with preserved ejection fraction (HFpEF) ([facility]) Mild episode of recurrent major depressive disorder JOHN (generalized anxiety disorder) Generalized anxiety disorder Gastroesophageal reflux disease without esophagitis Esophageal reflux Class 3 severe obesity due to excess calories with serious comorbidity and body mass index (BMI) of40.0 to 44.9 in adult ([facility]) Type 2 diabetes mellitus with hyperglycemia, with long-term current use of insulin ([facility])- Primary Benign essential hypertension Essential hypertension, benign Mild episode of recurrent major depressive disorder JOHN (generalized anxiety disorder) Generalized anxiety disorder Chronic heart failure with preserved ejection fraction (HFpEF) ([facility]) Type 2 diabetes mellitus with microalbuminuria, with long-term current use of insulin ([facility]) Class 3 severe obesity due to excess calories with serious comorbidity and body mass index (BMI) of40.0 to 44.9 in adult ([facility]) Encounter for long-term (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 medications Encounter for long-term (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 other medications Dyslipidemia Other and unspecified hyperlipidemia Primary osteoarthritis of both knees Genital warts Condyloma acuminatum documented in this encounter [facility] HealthcareEvaluation [facility]* Diagnosis Mild episode of recurrent major depressive disorder- Primary Type 2 diabetes mellitus with microalbuminuria, with long-term current use of insulin ([facility]) JOHN (generalized anxiety disorder) Generalized anxiety disorder Migraine without aura and without status migrainosus, not intractable Irritable bowel syndrome with diarrhea Irritable bowel syndrome Gastroesophageal reflux disease without esophagitis Esophageal reflux Hot flashes due to menopause Morbid obesity ([facility]) 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) Obesity hypoventilation syndrome ([facility])- Primary Obesity hypoventilation syndrome Hypoxia Hypoxemia Type 2 diabetes mellitus with microalbuminuria, with long-term current use of insulin ([facility]) Right carpal tunnel syndrome Carpal tunnel syndrome Elevated blood-pressure reading without diagnosis of hypertension Elevated blood pressure reading without diagnosis of hypertension Type 2 diabetes mellitus with hyperglycemia, with long-term current use of insulin ([facility])- Primary Mild episode of recurrent major depressive disorder JOHN (generalized anxiety disorder) Generalized anxiety disorder Carpal tunnel syndrome of left wrist Obesity hypoventilation syndrome ([facility]) Obesity hypoventilation syndrome Generalized edema Edema Irritable bowel syndrome with diarrhea Irritable bowel syndrome Gastroesophageal reflux disease without esophagitis Esophageal reflux Anxiety state Anxiety state, unspecified Type 2 diabetes mellitus with hyperglycemia, with long-term current use of insulin ([facility])- Primary Right carpal tunnel syndrome Carpal tunnel syndrome Chronic hypoxic respiratory failure ([facility]) Mild episode of recurrent major depressive disorder JOHN (generalized anxiety disorder) Generalized anxiety disorder Generalized edema 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 Spondylosis of unspecified site without mention of myelopathy 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 elsewhere ([facility]) Acute pain of right knee- Primary Type 2 diabetes mellitus with microalbuminuria, with long-term current use of insulin ([facility]) Right carpal tunnel syndrome Carpal tunnel syndrome Chronic hypoxic respiratory failure ([facility])- Primary Chronic heart failure with preserved ejection fraction (HFpEF) ([facility]) Type 2 diabetes mellitus with hyperglycemia, with long-term current use of insulin ([facility]) Pulmonary hypertension ([facility]) Other chronic pulmonary heart diseases Colon cancer screening Special screening for malignant neoplasms, colon Gastroesophageal reflux disease without esophagitis Esophageal reflux Dehydration- Primary Nausea and vomiting, unspecified vomiting type Type 2 diabetes mellitus with hyperglycemia, with long-term current use of insulin ([facility]) Class 3 severe obesity due to excess calories with serious comorbidity and body mass index (BMI) of40.0 to 44.9 in adult ([facility]) Chronic hypoxic respiratory failure ([facility]) Chronic heart failure with preserved ejection fraction (HFpEF) ([facility]) Type 2 diabetes mellitus with hyperglycemia, with long-term current use of insulin ([facility])- Primary Chronic heart failure with preserved ejection fraction (HFpEF) ([facility]) Mild episode of recurrent major depressive disorder JOHN (generalized anxiety disorder) Generalized anxiety disorder Gastroesophageal reflux disease without esophagitis Esophageal reflux Class 3 severe obesity due to excess calories with serious comorbidity and body mass index (BMI) of40.0 to 44.9 in adult ([facility]) Type 2 diabetes mellitus with hyperglycemia, with long-term current use of insulin ([facility])- Primary Benign essential hypertension Essential hypertension, benign Mild episode of recurrent major depressive disorder JOHN (generalized anxiety disorder) Generalized anxiety disorder Chronic heart failure with preserved ejection fraction (HFpEF) ([facility]) Type 2 diabetes mellitus with microalbuminuria, with long-term current use of insulin ([facility]) Class 3 severe obesity due to excess calories with serious comorbidity and body mass index (BMI) of40.0 to 44.9 in adult ([facility]) Encounter for long-term (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 medications Encounter for long-term (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 other medications Dyslipidemia Other and unspecified hyperlipidemia Primary osteoarthritis of both knees Acute pain of left knee- Primary documented in this encounter [facility] Healthcare[facility]* Diagnosis Mild episode of recurrent major depressive disorder- Primary Type 2 diabetes mellitus with microalbuminuria, with long-term current use of insulin ([facility]) JOHN (generalized anxiety disorder) Generalized anxiety disorder Migraine without aura and without status migrainosus, not intractable Irritable bowel syndrome with diarrhea Irritable bowel syndrome Gastroesophageal reflux disease without esophagitis Esophageal reflux Hot flashes due to menopause Morbid obesity ([facility]) Morbid obesity long-term (current) use of insulin (Z79.4) Obesity hypoventilation syndrome ([facility] Primary Obesity hypoventilation syndrome Hypoxia Hypoxemia Type 2 diabetes mellitus with microalbuminuria, with long-term current use of insulin ([facility]) Right carpal tunnel syndrome Carpal tunnel syndrome Elevated blood-pressure reading without diagnosis of hypertension Elevated blood pressure reading without diagnosis of hypertension Type 2 diabetes mellitus with hyperglycemia, with long-term current use of insulin ([facility])- Primary Mild episode of recurrent major depressive disorder JOHN (generalized anxiety disorder) Generalized anxiety disorder Carpal tunnel syndrome of left wrist Obesity hypoventilation syndrome ([facility]) Obesity hypoventilation syndrome Generalized edema Edema Irritable bowel syndrome with diarrhea Irritable bowel syndrome Gastroesophageal reflux disease without esophagitis Esophageal reflux Anxiety state Anxiety state, unspecified Type 2 diabetes mellitus with hyperglycemia, with long-term current use of insulin ([facility])- Primary Right carpal tunnel syndrome Carpal tunnel syndrome Chronic hypoxic respiratory failure ([facility]) Mild episode of recurrent major depressive disorder JOHN (generalized anxiety disorder) Generalized anxiety disorder Generalized edema 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 Spondylosis of unspecified site without mention of myelopathy 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 elsewhere ([facility]) Acute pain of right knee- Primary Type 2 diabetes mellitus with microalbuminuria, with long-term current use of insulin ([facility]) Right carpal tunnel syndrome Carpal tunnel syndrome Chronic hypoxic respiratory failure (HCC)- Primary Chronic heart failure with preserved ejection fraction (HFpEF) ([facility]) Type 2 diabetes mellitus with hyperglycemia, with long-term current use of insulin ([facility]) Pulmonary hypertension ([facility]) Other chronic pulmonary heart diseases Colon cancer screening Special screening for malignant neoplasms, colon Gastroesophageal reflux disease without esophagitis Esophageal reflux Dehydration- Primary Nausea and vomiting, unspecified vomiting type Type 2 diabetes mellitus with hyperglycemia, with long-term current use of insulin ([facility]) Class 3 severe obesity due to excess calories with serious comorbidity and body mass index (BMI) of40.0 to 44.9 in adult ([facility] Chronic hypoxic respiratory failure (HCC) Chronic heart failure with preserved ejection fraction (HFpEF) ([facility]) Type 2 diabetes mellitus with hyperglycemia, with long-term current use of insulin ([facility])- Primary Chronic heart failure with preserved ejection fraction (HFpEF) ([facility]) Mild episode of recurrent major depressive disorder JOHN (generalized anxiety disorder) Generalized anxiety disorder Gastroesophageal reflux disease without esophagitis Esophageal reflux Class 3 severe obesity due to excess calories with serious comorbidity and body mass index (BMI) of40.0 to 44.9 in adult ([facility]) Type 2 diabetes mellitus with hyperglycemia, with long-term current use of insulin ([facility])- Primary Benign essential hypertension Essential hypertension, benign Mild episode of recurrent major depressive disorder JOHN (generalized anxiety disorder) Generalized anxiety disorder Chronic heart failure with preserved ejection fraction (HFpEF) ([facility]) Type 2 diabetes mellitus with microalbuminuria, with long-term current use of insulin ([facility]) Class 3 severe obesity due to excess calories with serious comorbidity and body mass index (BMI) of40.0 to 44.9 in adult ([facility]) Encounter for long-term (current) use of medications Encounter for long-term (current) use of other medications Dyslipidemia Other and unspecified hyperlipidemia Primary osteoarthritis of both knees Acute medial meniscus tear of left knee, initial encounter- Primary Acute pain of left knee documented in this encounter [facility] HealthcareEvaluation note* Diagnosis Mild episode of recurrent major depressive disorder- Primary Type 2 diabetes mellitus with microalbuminuria, with long-term current use of insulin ([facility]) JOHN (generalized anxiety disorder) Generalized anxiety disorder Migraine without aura and without status migrainosus, not intractable Irritable bowel syndrome with diarrhea Irritable bowel syndrome Gastroesophageal reflux disease without esophagitis Esophageal reflux Hot flashes due to menopause Morbid obesity ([facility]) Morbid obesity long-term (current) use of insulin (Z79.4) Obesity hypoventilation syndrome ([facility])- Primary Obesity hypoventilation syndrome Hypoxia Hypoxemia Type 2 diabetes mellitus with microalbuminuria, with long-term current use of insulin ([facility]) Right carpal tunnel syndrome Carpal tunnel syndrome Elevated blood-pressure reading without diagnosis of hypertension Elevated blood pressure reading without diagnosis of hypertension Type 2 diabetes mellitus with hyperglycemia, with long-term current use of insulin ([facility])- Primary Mild episode of recurrent major depressive disorder JOHN (generalized anxiety disorder) Generalized anxiety disorder Carpal tunnel syndrome of left wrist Obesity hypoventilation syndrome ([facility]) Obesity hypoventilation syndrome Generalized edema Edema Irritable bowel syndrome with diarrhea Irritable bowel syndrome Gastroesophageal reflux disease without esophagitis Esophageal reflux Anxiety state Anxiety state, unspecified Type 2 diabetes mellitus with hyperglycemia, with long-term current use of insulin ([facility])- Primary Right carpal tunnel syndrome Carpal tunnel syndrome Chronic hypoxic respiratory failure ([facility]) Mild episode of recurrent major depressive disorder JOHN (generalized anxiety disorder) Generalized anxiety disorder Generalized edema 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 Spondylosis of unspecified site without mention of myelopathy 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 elsewhere ([facility]) Acute pain of right knee- Primary Type 2 diabetes mellitus with microalbuminuria, with long-term current use of insulin ([facility]) Right carpal tunnel syndrome Carpal tunnel syndrome Chronic hypoxic respiratory failure ([facility])- Primary Chronic heart failure with preserved ejection fraction (HFpEF) ([facility]) Type 2 diabetes mellitus with hyperglycemia, with long-term current use of insulin ([facility]) Pulmonary hypertension ([facility]) Other chronic pulmonary heart diseases Colon cancer screening Special screening for malignant neoplasms, colon Gastroesophageal reflux disease without esophagitis Esophageal reflux Dehydration- Primary Nausea and vomiting, unspecified vomiting type Type 2 diabetes mellitus with hyperglycemia, with long-term current use of insulin ([facility]) Class 3 severe obesity due to excess calories with serious comorbidity and body mass index (BMI) of40.0 to 44.9 in adult ([facility]) Chronic hypoxic respiratory failure ([facility]) Chronic heart failure with preserved ejection fraction (HFpEF) ([facility]) Type 2 diabetes mellitus with hyperglycemia, with long-term current use of insulin ([facility])- Primary Chronic heart failure with preserved ejection fraction (HFpEF) ([facility]) Mild episode of recurrent major depressive disorder JOHN (generalized anxiety disorder) Generalized anxiety disorder Gastroesophageal reflux disease without esophagitis Esophageal reflux Class 3 severe obesity due to excess calories with serious comorbidity and body mass index (BMI) of40.0 to 44.9 in adult ([facility] [place]) Type 2 diabetes mellitus with hyperglycemia, with long-term current use of insulin ([facility])- Primary Benign essential hypertension Essential hypertension, benign Mild episode of recurrent major depressive disorder JOHN (generalized anxiety disorder) Generalized anxiety disorder Chronic heart failure with preserved ejection fraction (HFpEF) ([facility]) Type 2 diabetes mellitus with microalbuminuria, with long-term current use of insulin ([facility]) Class 3 severe obesity due to excess calories with serious comorbidity and body mass index (BMI) of40.0 to 44.9 in adult ([facility]) Encounter for long-term (current) use of medications Encounter for long-term (current) use of other medications Dyslipidemia Other and unspecified hyperlipidemia Primary osteoarthritis of both knees Acute pain of left knee- Primary documented in this encounter [facility] HealthcareEvaluation note* Diagnosis Mild episode of recurrent major depressive disorder- Primary Type 2 diabetes mellitus with microalbuminuria, with long-term current use of insulin (HCC) JOHN (generalized anxiety disorder) Generalized anxiety disorder Migraine without aura and without status migrainosus, not intractable Irritable bowel syndrome with diarrhea Irritable bowel syndrome Gastroesophageal reflux disease without esophagitis Esophageal reflux Hot flashes due to menopause Morbid obesity ([facility]) 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) Obesity hypoventilation syndrome ([facility] Primary Obesity hypoventilation syndrome Hypoxia Hypoxemia Type 2 diabetes mellitus with microalbuminuria, with long-term current use of insulin (HCC) Right carpal tunnel syndrome Carpal tunnel syndrome Elevated blood-pressure reading without diagnosis of hypertension Elevated blood pressure reading without diagnosis of hypertension Type 2 diabetes mellitus with hyperglycemia, with long-term current use of insulin ([facility])- Primary Mild episode of recurrent major depressive disorder JOHN (generalized anxiety disorder) Generalized anxiety disorder Carpal tunnel syndrome of left wrist Obesity hypoventilation syndrome ([facility]) Obesity hypoventilation syndrome Generalized edema Edema Irritable bowel syndrome with diarrhea Irritable bowel syndrome Gastroesophageal reflux disease without esophagitis Esophageal reflux Anxiety state Anxiety state, unspecified Type 2 diabetes mellitus with hyperglycemia, with long-term current use of insulin ([facility])- Primary Right carpal tunnel syndrome Carpal tunnel syndrome Chronic hypoxic respiratory failure (HCC) Mild episode of recurrent major depressive disorder JOHN (generalized anxiety disorder) Generalized anxiety disorder Generalized edema 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 Spondylosis of unspecified site without mention of myelopathy 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 elsewhere ([facility]) Acute pain of right knee- Primary Type 2 diabetes mellitus with microalbuminuria, with long-term current use of insulin ([facility]) Right carpal tunnel syndrome Carpal tunnel syndrome Chronic hypoxic respiratory failure (HCC)- Primary Chronic heart failure with preserved ejection fraction (HFpEF) ([facility]) Type 2 diabetes mellitus with hyperglycemia, with long-term current use of insulin ([facility]) Pulmonary hypertension (HCC) Other chronic pulmonary heart diseases Colon cancer screening Special screening for malignant neoplasms, colon Gastroesophageal reflux disease without esophagitis Esophageal reflux Dehydration- Primary Nausea and vomiting, unspecified vomiting type Type 2 diabetes mellitus with hyperglycemia, with long-term current use of insulin ([facility]) Class 3 severe obesity due to excess calories with serious comorbidity and body mass index (BMI) of40.0 to 44.9 in adult ([facility] Chronic hypoxic respiratory failure (HCC) Chronic heart failure with preserved ejection fraction (HFpEF) ([facility]) Type 2 diabetes mellitus with hyperglycemia, with long-term current use of insulin ([facility])- Primary Chronic heart failure with preserved ejection fraction (HFpEF) ([facility]) Mild episode of recurrent major depressive disorder JOHN (generalized anxiety disorder) Generalized anxiety disorder Gastroesophageal reflux disease without esophagitis Esophageal reflux Class 3 severe obesity due to excess calories with serious comorbidity and body mass index (BMI) of40.0 to 44.9 in adult ([facility]) Type 2 diabetes mellitus with hyperglycemia, with long-term current use of insulin ([facility])- Primary Benign essential hypertension Essential hypertension, benign Mild episode of recurrent major depressive disorder JOHN (generalized anxiety disorder) Generalized anxiety disorder Chronic heart failure with preserved ejection fraction (HFpEF) ([facility]) Type 2 diabetes mellitus with microalbuminuria, with long-term current use of insulin ([facility]) Class 3 severe obesity due to excess calories with serious comorbidity and body mass index (BMI) of40.0 to 44.9 in adult ([facility]) Encounter for long-term (current) use of medications Encounter for long-term (current) use of other medications Dyslipidemia Other and unspecified hyperlipidemia Primary osteoarthritis of both knees Acute pain of left knee- Primary documented in this encounter [facility] HealthcareEvaluation note* Diagnosis Mild episode of recurrent major depressive disorder- Primary Type 2 diabetes mellitus with microalbuminuria, with long-term current use of insulin ([facility]) JOHN (generalized anxiety disorder) Generalized anxiety disorder Migraine without aura and without status migrainosus, not intractable Irritable bowel syndrome with diarrhea Irritable bowel syndrome Gastroesophageal reflux disease without esophagitis Esophageal reflux Hot flashes due to menopause Morbid obesity ([facility]) Morbid obesity long-term (current) use of insulin (Z79.4) Obesity hypoventilation syndrome ([facility])- Primary Obesity hypoventilation syndrome Hypoxia Hypoxemia Type 2 diabetes mellitus with microalbuminuria, with long-term current use of insulin ([facility]) Right carpal tunnel syndrome Carpal tunnel syndrome Elevated blood-pressure reading without diagnosis of hypertension Elevated blood pressure reading without diagnosis of hypertension Type 2 diabetes mellitus with hyperglycemia, with long-term current use of insulin ([facility])- Primary Mild episode of recurrent major depressive disorder JOHN (generalized anxiety disorder) Generalized anxiety disorder Carpal tunnel syndrome of left wrist Obesity hypoventilation syndrome ([facility]) Obesity hypoventilation syndrome Generalized edema Edema Irritable bowel syndrome with diarrhea Irritable bowel syndrome Gastroesophageal reflux disease without esophagitis Esophageal reflux Anxiety state Anxiety state, unspecified Type 2 diabetes mellitus with hyperglycemia, with long-term current use of insulin ([facility])- Primary Right carpal tunnel syndrome Carpal tunnel syndrome Chronic hypoxic respiratory failure ([facility]) Mild episode of recurrent major depressive disorder JOHN (generalized anxiety disorder) Generalized anxiety disorder Generalized edema 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 Spondylosis of unspecified site without mention of myelopathy 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 elsewhere ([facility]) Acute pain of right knee- Primary Type 2 diabetes mellitus with microalbuminuria, with long-term current use of insulin ([facility]) Right carpal tunnel syndrome Carpal tunnel syndrome Chronic hypoxic respiratory failure ([facility])- Primary Chronic heart failure with preserved ejection fraction (HFpEF) ([facility]) Type 2 diabetes mellitus with hyperglycemia, with long-term current use of insulin ([facility]) Pulmonary hypertension ([facility]) Other chronic pulmonary heart diseases Colon cancer screening Special screening for malignant neoplasms, colon Gastroesophageal reflux disease without esophagitis Esophageal reflux Dehydration- Primary Nausea and vomiting, unspecified vomiting type Type 2 diabetes mellitus with hyperglycemia, with long-term current use of insulin ([facility]) Class 3 severe obesity due to excess calories with serious comorbidity and body mass index (BMI) of40.0 to 44.9 in adult ([facility]) Chronic hypoxic respiratory failure ([facility]) Chronic heart failure with preserved ejection fraction (HFpEF) ([facility]) Type 2 diabetes mellitus with hyperglycemia, with long-term current use of insulin ([facility])- Primary Chronic heart failure with preserved ejection fraction (HFpEF) ([facility]) Mild episode of recurrent major depressive disorder JOHN (generalized anxiety disorder) Generalized anxiety disorder Gastroesophageal reflux disease without esophagitis Esophageal reflux Class 3 severe obesity due to excess calories with serious comorbidity and body mass index (BMI) of40.0 to 44.9 in adult ([facility]) Type 2 diabetes mellitus with hyperglycemia, with long-term current use of insulin ([facility])- Primary Benign essential hypertension Essential hypertension, benign Mild episode of recurrent major depressive disorder JOHN (generalized anxiety disorder) Generalized anxiety disorder Chronic heart failure with preserved ejection fraction (HFpEF) ([facility]) Type 2 diabetes mellitus with microalbuminuria, with long-term current use of insulin ([facility]) Class 3 severe obesity due to excess calories with serious comorbidity and body mass index (BMI) of40.0 to 44.9 in adult ([facility]) Encounter for long-term (current) use of medications Encounter for long-term (current) use of other medications Dyslipidemia Other and unspecified hyperlipidemia Primary osteoarthritis of both knees Acute pain of left knee- Primary documented in this encounter [facility] HealthcareEvaluation note* Diagnosis Mild episode of recurrent major depressive disorder- Primary Type 2 diabetes mellitus with microalbuminuria, with long-term current use of insulin ([facility]) JOHN (generalized anxiety disorder) Generalized anxiety disorder Migraine without aura and without status migrainosus, not intractable Irritable bowel syndrome with diarrhea Irritable bowel syndrome Gastroesophageal reflux disease without esophagitis Esophageal reflux Hot flashes due to menopause Morbid obesity ([facility]) Morbid obesity long-term (current) use of insulin (Z79.4) Obesity hypoventilation syndrome ([facility] Primary Obesity hypoventilation syndrome Hypoxia Hypoxemia Type 2 diabetes mellitus with microalbuminuria, with long-term current use of insulin ([facility]) Right carpal tunnel syndrome Carpal tunnel syndrome Elevated blood-pressure reading without diagnosis of hypertension Elevated blood pressure reading without diagnosis of hypertension Type 2 diabetes mellitus with hyperglycemia, with long-term current use of insulin ([facility])- Primary Mild episode of recurrent major depressive disorder JOHN (generalized anxiety disorder) Generalized anxiety disorder Carpal tunnel syndrome of left wrist Obesity hypoventilation syndrome ([facility]) Obesity hypoventilation syndrome Generalized edema Edema Irritable bowel syndrome with diarrhea Irritable bowel syndrome Gastroesophageal reflux disease without esophagitis Esophageal reflux Anxiety state Anxiety state, unspecified Type 2 diabetes mellitus with hyperglycemia, with long-term current use of insulin ([facility])- Primary Right carpal tunnel syndrome Carpal tunnel syndrome Chronic hypoxic respiratory failure ([facility]) Mild episode of recurrent major depressive disorder JOHN (generalized anxiety disorder) Generalized anxiety disorder Generalized edema 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 Spondylosis of unspecified site without mention of myelopathy 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 elsewhere (HCC) Acute pain of right knee- Primary Type 2 diabetes mellitus with microalbuminuria, with long-term current use of insulin ([facility]) Right carpal tunnel syndrome Carpal tunnel syndrome Chronic hypoxic respiratory failure (HCC)- Primary Chronic heart failure with preserved ejection fraction (HFpEF) ([facility]) Type 2 diabetes mellitus with hyperglycemia, with long-term current use of insulin ([facility]) Pulmonary hypertension ([facility]) Other chronic pulmonary heart diseases Colon cancer screening Special screening for malignant neoplasms, colon Gastroesophageal reflux disease without esophagitis Esophageal reflux Dehydration- Primary Nausea and vomiting, unspecified vomiting type Type 2 diabetes mellitus with hyperglycemia, with long-term current use of insulin ([facility]) Class 3 severe obesity due to excess calories with serious comorbidity and body mass index (BMI) of40.0 to 44.9 in adult ([facility]) Chronic hypoxic respiratory failure ([facility]) Chronic heart failure with preserved ejection fraction (HFpEF) ([facility]) Type 2 diabetes mellitus with hyperglycemia, with long-term current use of insulin ([facility])- Primary Chronic heart failure with preserved ejection fraction (HFpEF) ([facility]) Mild episode of recurrent major depressive disorder JOHN (generalized anxiety disorder) Generalized anxiety disorder Gastroesophageal reflux disease without esophagitis Esophageal reflux Class 3 severe obesity due to excess calories with serious comorbidity and body mass index (BMI) of40.0 to 44.9 in adult ([facility]) Type 2 diabetes mellitus with hyperglycemia, with long-term current use of insulin ([facility])- Primary Benign essential hypertension Essential hypertension, benign Mild episode of recurrent major depressive disorder JOHN (generalized anxiety disorder) Generalized anxiety disorder Chronic heart failure with preserved ejection fraction (HFpEF) ([facility]) Type 2 diabetes mellitus with microalbuminuria, with long-term current use of insulin ([facility]) Class 3 severe obesity due to excess calories with serious comorbidity and body mass index (BMI) of40.0 to 44.9 in adult ([facility]) Encounter for long-term (current) use of medications [...] microalbuminuria, with long-term current use of insulin ([facility]) JOHN (generalized anxiety disorder) Generalized anxiety disorder Migraine without aura and without status migrainosus, not intractable Irritable bowel syndrome with diarrhea Irritable bowel syndrome Gastroesophageal reflux disease without esophagitis Esophageal reflux Hot flashes due to menopause Morbid obesity ([facility]) 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) Obesity hypoventilation syndrome ([facility])- Primary Obesity hypoventilation syndrome Hypoxia Hypoxemia Type 2 diabetes mellitus with microalbuminuria, with long-term current use of insulin ([facility]) Right carpal tunnel syndrome Carpal tunnel syndrome Elevated blood-pressure reading without diagnosis of hypertension Elevated blood pressure reading without diagnosis of hypertension Type 2 diabetes mellitus with hyperglycemia, with long-term current use of insulin ([facility])- Primary Mild episode of recurrent major depressive disorder JOHN (generalized anxiety disorder) Generalized anxiety disorder Carpal tunnel syndrome of left wrist Obesity hypoventilation syndrome ([facility]) Obesity hypoventilation syndrome Generalized edema Edema Irritable bowel syndrome with diarrhea Irritable bowel syndrome Gastroesophageal reflux disease without esophagitis Esophageal reflux Anxiety state Anxiety state, unspecified Type 2 diabetes mellitus with hyperglycemia, with long-term current use of insulin ([facility])- Primary Right carpal tunnel syndrome Carpal tunnel syndrome Chronic hypoxic respiratory failure ([facility]) Mild episode of recurrent major depressive disorder JOHN (generalized anxiety disorder) Generalized anxiety disorder Generalized edema 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 Spondylosis of unspecified site without mention of myelopathy 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 elsewhere ([facility]) Acute pain of right knee- Primary Type 2 diabetes mellitus with microalbuminuria, with long-term current use of insulin ([facility]) Right carpal tunnel syndrome Carpal tunnel syndrome Chronic hypoxic respiratory failure ([facility])- Primary Chronic heart failure with preserved ejection fraction (HFpEF) ([facility]) Type 2 diabetes mellitus with hyperglycemia, with long-term current use of insulin ([facility]) Pulmonary hypertension ([facility]) Other chronic pulmonary heart diseases Colon cancer screening Special screening for malignant neoplasms, colon Gastroesophageal reflux disease without esophagitis Esophageal reflux Dehydration- Primary Nausea and vomiting, unspecified vomiting type Type 2 diabetes mellitus with hyperglycemia, with long-term current use of insulin ([facility]) Class 3 severe obesity due to excess calories with serious comorbidity and body mass index (BMI) of40.0 to 44.9 in adult ([facility]) Chronic hypoxic respiratory failure ([facility]) Chronic heart failure with preserved ejection fraction (HFpEF) ([facility]) Type 2 diabetes mellitus with hyperglycemia, with long-term current use of insulin ([facility])- Primary Chronic heart failure with preserved ejection fraction (HFpEF) ([facility]) Mild episode of recurrent major depressive disorder JOHN (generalized anxiety disorder) Generalized anxiety disorder Gastroesophageal reflux disease without esophagitis Esophageal reflux Class 3 severe obesity due to excess calories with serious comorbidity and body mass index (BMI) of40.0 to 44.9 in adult ([facility]) Type 2 diabetes mellitus with hyperglycemia, with long-term current use of insulin ([facility])- Primary Benign essential hypertension Essential hypertension, benign Mild episode of recurrent major depressive disorder JOHN (generalized anxiety disorder) Generalized anxiety disorder Chronic heart failure with preserved ejection fraction (HFpEF) ([facility]) Type 2 diabetes mellitus with microalbuminuria, with long-term current use of insulin ([facility]) Class 3 severe obesity due to excess calories with serious comorbidity and body mass index (BMI) of40.0 to 44.9 in adult ([facility]) Encounter for long-term (current) use of medications Encounter for long-term (current) use of other medications Dyslipidemia Other and unspecified hyperlipidemia Primary osteoarthritis of both knees Acute pain of left knee- Primary Acute medial meniscus tear of left knee, initial encounter documented in this encounter [facility] HealthcareEvaluation note* Diagnosis Hypoxia- Primary Hypoxemia Dyspnea on exertion Other dyspnea and respiratory abnormality [facility] information [facility] Work Phone: Evaluation note* Diagnosis Moderate persistent asthma without complication- Primary [facility] Diagnosis Mild episode of recurrent major depressive disorder- Primary Type 2 diabetes mellitus with microalbuminuria, with long-term current use of insulin ([facility]) JOHN (generalized anxiety disorder) Generalized anxiety disorder Migraine without aura and without status migrainosus, not intractable Irritable bowel syndrome with diarrhea Irritable bowel syndrome Gastroesophageal reflux disease without esophagitis Esophageal reflux Hot flashes due to menopause Morbid obesity ([facility]) 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) Obesity hypoventilation syndrome ([facility])- Primary Obesity hypoventilation syndrome Hypoxia Hypoxemia Type 2 diabetes mellitus with microalbuminuria, with long-term current use of insulin ([facility]) Right carpal tunnel syndrome Carpal tunnel syndrome Elevated blood-pressure reading without diagnosis of hypertension Elevated blood pressure reading without diagnosis of hypertension Type 2 diabetes mellitus with hyperglycemia, with long-term current use of insulin ([facility])- Primary Mild episode of recurrent major depressive disorder JOHN (generalized anxiety disorder) Generalized anxiety disorder Carpal tunnel syndrome of left wrist Obesity hypoventilation syndrome ([facility] Obesity hypoventilation syndrome Generalized edema Edema Irritable bowel syndrome with diarrhea Irritable bowel syndrome Gastroesophageal reflux disease without esophagitis Esophageal reflux Anxiety state Anxiety state, unspecified Type 2 diabetes mellitus with hyperglycemia, with long-term current use of insulin ([facility])- Primary Right carpal tunnel syndrome Carpal tunnel syndrome Chronic hypoxic respiratory failure ([facility]) Mild episode of recurrent major depressive disorder JOHN (generalized anxiety disorder) Generalized anxiety disorder Generalized edema 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 Spondylosis of unspecified site without mention of myelopathy 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 elsewhere ([facility]) Acute pain of right knee- Primary Type 2 diabetes mellitus with microalbuminuria, with long-term current use of insulin (HCC) Right carpal tunnel syndrome Carpal tunnel syndrome Chronic hypoxic respiratory failure (HCC)- Primary Chronic heart failure with preserved ejection fraction (HFpEF) ([facility]) Type 2 diabetes mellitus with hyperglycemia, with long-term current use of insulin ([facility]) Pulmonary hypertension (HCC) Other chronic pulmonary heart diseases Colon cancer screening Special screening for malignant neoplasms, colon Gastroesophageal reflux disease without esophagitis Esophageal reflux Dehydration- Primary Nausea and vomiting, unspecified vomiting type Type 2 diabetes mellitus with hyperglycemia, with long-term current use of insulin ([facility]) Class 3 severe obesity due to excess calories with serious comorbidity and body mass index (BMI) of40.0 to 44.9 in adult ([facility]) Chronic hypoxic respiratory failure (HCC) Chronic heart failure with preserved ejection fraction (HFpEF) ([facility]) Type 2 diabetes mellitus with hyperglycemia, with long-term current use of insulin ([facility])- Primary Chronic heart failure with preserved ejection fraction (HFpEF) ([facility]) Mild episode of recurrent major depressive disorder JOHN (generalized anxiety disorder) Generalized anxiety disorder Gastroesophageal reflux disease without esophagitis Esophageal reflux Class 3 severe obesity due to excess calories with serious comorbidity and body mass index (BMI) of40.0 to 44.9 in adult ([facility]) Type 2 diabetes mellitus with hyperglycemia, with long-term current use of insulin ([facility])- Primary Benign essential hypertension Essential hypertension, benign Mild episode of recurrent major depressive disorder JOHN (generalized anxiety disorder) Generalized anxiety disorder Chronic heart failure with preserved ejection fraction (HFpEF) ([facility]) Type 2 diabetes mellitus with microalbuminuria, with long-term current use of insulin ([facility]) Class 3 severe obesity due to excess calories with serious comorbidity and body mass index (BMI) of40.0 to 44.9 in adult ([facility]) Encounter for long-term (current) use of medications Encounter for long-term (current) use of other medications Dyslipidemia Other and unspecified hyperlipidemia Primary osteoarthritis of both knees Type 2 diabetes mellitus with hyperglycemia, with long-term current use of insulin ([facility]) documented in this encounter [facility] HealthcareEvaluation [facility]* Diagnosis Obstructive sleep apnea syndrome- Primary Obstructive sleep apnea (adult) (pediatric) Dyspnea on exertion Other dyspnea and respiratory abnormality Moderate persistent asthma without complication Chronic hypoxic respiratory failure ([facility]) BMI 40.0-44.9, adult ([facility]) Obesity, morbid, BMI 40.0-49.9 ([facility]) [facility] Diagnosis Chronic hypoxic respiratory failure ([facility] Primary Hypoxia Hypoxemia SOB (shortness of breath) Shortness of breath [facility] Diagnosis Mild episode of recurrent major depressive disorder- Primary Type 2 diabetes mellitus with microalbuminuria, with long-term current use of insulin ([facility]) JOHN (generalized anxiety disorder) Generalized anxiety disorder Migraine without aura and without status migrainosus, not intractable Irritable bowel syndrome with diarrhea Irritable bowel syndrome Gastroesophageal reflux disease without esophagitis Esophageal reflux Hot flashes due to menopause Morbid obesity ([facility]) 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) Obesity hypoventilation syndrome ([facility])- Primary Obesity hypoventilation syndrome Hypoxia Hypoxemia Type 2 diabetes mellitus with microalbuminuria, with long-term current use of insulin ([facility]) Right carpal tunnel syndrome Carpal tunnel syndrome Elevated blood-pressure reading without diagnosis of hypertension Elevated blood pressure reading without diagnosis of hypertension Type 2 diabetes mellitus with hyperglycemia, with long-term current use of insulin ([facility])- Primary Mild episode of recurrent major depressive disorder JOHN (generalized anxiety disorder) Generalized anxiety disorder Carpal tunnel syndrome of left wrist Obesity hypoventilation syndrome ([facility]) Obesity hypoventilation syndrome Generalized edema Edema Irritable [...] myelopathy 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 elsewhere ([facility]) Acute pain of right knee- Primary Type 2 diabetes mellitus with microalbuminuria, with long-term current use of insulin ([facility]) Right carpal tunnel syndrome Carpal tunnel syndrome Chronic hypoxic respiratory failure (HCC)- Primary Chronic heart failure with preserved ejection fraction (HFpEF) ([facility]) Type 2 diabetes mellitus with hyperglycemia, with long-term current use of insulin ([facility]) Pulmonary hypertension (HCC) Other chronic pulmonary heart diseases Colon cancer screening Special screening for malignant neoplasms, colon Gastroesophageal reflux disease without esophagitis Esophageal reflux Dehydration- Primary Nausea and vomiting, unspecified vomiting type Type 2 diabetes mellitus with hyperglycemia, with long-term current use of insulin ([facility]) Class 3 severe obesity due to excess calories with serious comorbidity and body mass index (BMI) of40.0 to 44.9 in adult ([facility]) Chronic hypoxic respiratory failure ([facility]) Chronic heart failure with preserved ejection fraction (HFpEF) ([facility]) Type 2 diabetes mellitus with hyperglycemia, with long-term current use of insulin ([facility])- Primary Chronic heart failure with preserved ejection fraction (HFpEF) ([facility]) Mild episode of recurrent major depressive disorder JOHN (generalized anxiety disorder) Generalized anxiety disorder Gastroesophageal reflux disease without esophagitis Esophageal reflux Class 3 severe obesity due to excess calories with serious comorbidity and body mass index (BMI) of40.0 to 44.9 in adult ([facility]) Type 2 diabetes mellitus with hyperglycemia, with long-term current use of insulin ([facility])- Primary Benign essential hypertension Essential hypertension, benign Mild episode of recurrent major depressive disorder JOHN (generalized anxiety disorder) Generalized anxiety disorder Chronic heart failure with preserved ejection fraction (HFpEF) ([facility]) Type 2 diabetes mellitus with microalbuminuria, with long-term current use of insulin ([facility]) Class 3 severe obesity due to excess calories with serious comorbidity and body mass index (BMI) of40.0 to 44.9 in adult ([facility]) Encounter for long-term (current) use of medications [...] microalbuminuria, with long-term current use of insulin ([facility]) JOHN (generalized anxiety disorder) Generalized anxiety disorder Migraine without aura and without status migrainosus, not intractable Irritable bowel syndrome with diarrhea Irritable bowel syndrome Gastroesophageal reflux disease without esophagitis Esophageal reflux Hot flashes due to menopause Morbid obesity ([facility]) Morbid obesity long-term (current) use of insulin (Z79.4) Obesity hypoventilation syndrome ([facility])- Primary Obesity hypoventilation syndrome Hypoxia Hypoxemia Type 2 diabetes mellitus with microalbuminuria, with long-term current use of insulin ([facility]) Right carpal tunnel syndrome Carpal tunnel syndrome Elevated blood-pressure reading without diagnosis of hypertension Elevated blood pressure reading without diagnosis of hypertension Type 2 diabetes mellitus with hyperglycemia, with long-term current use of insulin ([facility])- Primary Mild episode of recurrent major depressive disorder JOHN (generalized anxiety disorder) Generalized anxiety disorder Carpal tunnel syndrome of left wrist Obesity hypoventilation syndrome ([facility]) Obesity hypoventilation syndrome Generalized edema Edema Irritable bowel syndrome with diarrhea Irritable bowel syndrome Gastroesophageal reflux disease without esophagitis Esophageal reflux Anxiety state Anxiety state, unspecified Type 2 diabetes mellitus with hyperglycemia, with long-term current use of insulin ([facility])- Primary Right carpal tunnel syndrome Carpal tunnel syndrome Chronic hypoxic respiratory failure ([facility]) Mild episode of recurrent major depressive disorder JOHN (generalized anxiety disorder) Generalized anxiety disorder Generalized edema 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 Spondylosis of unspecified site without mention of myelopathy 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 elsewhere ([facility]) Acute pain of right knee- Primary Type 2 diabetes mellitus with microalbuminuria, with long-term current use of insulin ([facility]) Right carpal tunnel syndrome Carpal tunnel syndrome Chronic hypoxic respiratory failure ([facility])- Primary Chronic heart failure with preserved ejection fraction (HFpEF) ([facility]) Type 2 diabetes mellitus with hyperglycemia, with long-term current use of insulin ([facility]) Pulmonary hypertension ([facility]) Other chronic pulmonary heart diseases Colon cancer screening Special screening for malignant neoplasms, colon Gastroesophageal reflux disease without esophagitis Esophageal reflux Dehydration- Primary Nausea and vomiting, unspecified vomiting type Type 2 diabetes mellitus with hyperglycemia, with long-term current use of insulin ([facility]) Class 3 severe obesity due to excess calories with serious comorbidity and body mass index (BMI) of40.0 to 44.9 in adult ([facility]) Chronic hypoxic respiratory failure ([facility]) Chronic heart failure with preserved ejection fraction (HFpEF) ([facility]) Type 2 diabetes mellitus with hyperglycemia, with long-term current use of insulin ([facility])- Primary Chronic heart failure with preserved ejection fraction (HFpEF) ([facility]) Mild episode of recurrent major depressive disorder JOHN (generalized anxiety disorder) Generalized anxiety disorder Gastroesophageal reflux disease without esophagitis Esophageal reflux Class 3 severe obesity due to excess calories with serious comorbidity and body mass index (BMI) of40.0 to 44.9 in adult ([facility]) Type 2 diabetes mellitus with hyperglycemia, with long-term current use of insulin ([facility])- Primary Benign essential hypertension Essential hypertension, benign Mild episode of recurrent major depressive disorder JOHN (generalized anxiety disorder) Generalized anxiety disorder Chronic heart failure with preserved ejection fraction (HFpEF) ([facility]) Type 2 diabetes mellitus with microalbuminuria, with long-term current use of insulin (HCC) Class 3 severe obesity due to excess calories with serious comorbidity and body mass index (BMI) of40.0 to 44.9 in adult ([facility]) Encounter for long-term (current) use of medications Encounter for long-term (current) use of other medications Dyslipidemia Other and unspecified hyperlipidemia Primary osteoarthritis of both knees Pre-op examination- Primary documented in this encounter [facility] HealthcareEvaluation note* Diagnosis Onset Date Resolution Status Admit Date Benign essential hypertension acuteOctober 2024 10:48amChronic heart failure with preserved ejection fraction (HFpEF)acuteOctober 2024 10:48amClass 3 severe obesity due to excess calories with serious comorbidity andacuteOctober 2024 10:48amGAD (generalized anxiety disorder)acuteOctober 2024 10:48amMild episode of recurrent major depressive disorderacuteOctober 2024 10:48amType 2 diabetes mellitus with hyperglycemia, with long-term current use ofacuteOctober 2024 10:48am [facility] Work Phone: Evaluation note* Diagnosis Onset Date [...] with long-term current use ofacuteOctober 2024 10:48am [facility] Work Phone: Evaluation note* Diagnosis Pure hypercholesterolemia- Primary Chronic heart failure with preserved ejection fraction ([facility]) [facility] Additional Instructions POST CATARACT SURGERY [...] worsening of your eyesight. Please call your stem assembler during normal business hours. If after business hours call Dr. Randall Soria at his cell [phone] or his office [phone].[facility] Work Phone: Hospital Discharge instructionsAmbulatory Orders* Referral to ENT Time Frame: 06/05/25, Location: None Selected [facility] Work Phone: InstructionsNot on filedocumented in this [...] Medicine Diagnoses Mediastinal lymphadenopathy Ryan Mcneal MD [facility] [address] [place] [address] [facility] Pul Sleep Med [address] [address] Referral IDStatusReasonStart DateExpiration DateVisits RequestedVisits [id number] Review Specialty Services Required [facility] for referral (narrative)* Consultation (Routine) - Pending ReviewSpecialtyDiagnoses / ProceduresReferred By ContactReferred To ContactPulmonary Medicine Diagnoses Hypoxia Eddie Zurita APRN-CNP [address], [facility] [address] [place] [address] Lindsay Arrieta, DO [facility] [place] [address] Referral IDStatusReasonStart DateExpiration DateVisits RequestedVisits [id number] Review Specialty Services Required / * Misc (Routine) - Pending ReviewSpecialtyDiagnoses / ProceduresReferred By ContactReferred To Contact Procedures Discharge Follow-Up Eddie Zurita APRN-CNP [address], [facility] [address] [place] [address] Referral IDStatusReasonStart DateExpiration DateVisits RequestedVisits [id number] Review/ * Misc (Routine) - Pending ReviewSpecialtyDiagnoses / ProceduresReferred By ContactReferred To Contact Diagnoses Hyperglycemia Acute cystitis without hematuria Procedures Follow-up with primary care provider Eddie Zurita APRN-CNP [address], [facility] [address] [place] [address] Referral IDStatusReasonStart DateExpiration DateVisits RequestedVisits [id number] Review/ * Misc (Routine) - Pending ReviewSpecialtyDiagnoses / ProceduresReferred By ContactReferred To Contact Procedures Adult diet Eddie Zurita, MERCHANDISING COORDINATOR-DRAGLINE MECHANIC [address], [place] [address] [place] [address] Referral IDStatusReasonStart DateExpiration DateVisits RequestedVisits [id number] Review/ [facility] CenterReason for referral (narrative)No reason for referral information availableKettering Health Work Phone: Reason for visit Narrative* Auth/CertSpecialty Diagnoses / ProceduresReferred By ContactReferred To Contact Diagnoses DKA, type 1, not at goal (HCC) DKA Jamal Levine MD [address] [address] [facility] [address] [place] [address] Referral IDStatusReasonStart DateExpiration DateVisits RequestedVisits [id number] [employer] [facility] Phone: reason for visit Narrative* Consultation (Routine) - Pending ReviewSpecialtyDiagnoses / ProceduresReferred By ContactReferred To ContactCardiothoracic Surgery Diagnoses Cavitary lesion of lung Diaz Dalton MD [address] [place] [address] Ryan Mcneal MD [address] [facility] [address] [place] [address] Referral IDStatusReasonStart DateExpiration DateVisits RequestedVisits [id number] Review Specialty Services Required / [facility] for visit Narrative* Misc (Routine) - Closed SpecialtyDiagnoses / ProceduresReferred By ContactReferred To Contact Diagnoses JOSE M (obstructive sleep apnea) Chronic hypoxic respiratory failure ([facility]) Severe obesity (BMI >= 40) ([facility]) Procedures PSG Diagnostic Smitha Germain MD [address] [facility] [address] [place] [address] Phone: tel: fax: Referral IDStatusReasonStart DateExpiration DateVisits RequestedVisits [id number]/ [facility] for visit Narrative* Consultation (Routine) - AuthorizedSpecialtyDiagnoses / ProceduresReferred By ContactReferred To ContactPhysical Therapy Diagnoses Acute pain of left knee Procedures [facility] OFFICE/OUTPATIENT NEW HIGH MDM 60 MINUTES Jr. Harinder Jackson, DO [address] [facility] [address] [place] [address] Phone: tel: fax: Shakila Valadez, MELODY Referral IDStaGiselleasonStart DateExpiration DateVisits RequestedVisits [id number] Consult and Treat / [facility] for visit Narrative* Consultation (Routine) - Authorized SpecialtyDiagnoses / ProceduresReferred By ContactReferred To ContactPhysical Therapy Diagnoses Acute pain of left knee Procedures NH OFFICE/OUTPATIENT NEW HIGH MDM 60 MINUTES Jr. Harinder Jackson, DO [address] [facility] [address] [place] [address] Phone: tel: fax: Shakila Valadez, MELODY Referral IDStatGregStart DateExpiration DateVisits RequestedVisits [id number] Consult and Treat [id number] [facility] Summary Purpose Family History No Family History Records Found Relationship Condition Age at Onset Recorded Date/T mame father Malignant neoplasm Unknown DeceasedUnknownmotherDiabetes mellitusUnknownHypertensionUnknown Advance Directives No Advanced Directives Records FoundLatest Code Status on File Code StatusDate ActivatedDate InactivatedCommentsFull Code09/28/2021 9:46 AMDate ActivatedDate InactivatedComments12/20/2023 10:13 PM12/23/2023 5:45 PMDate ActivatedDate FeuditxboleHhgpoane61/2/2023 6:38 AM06/05/2023 7:25 PMDate ActivatedDate InactivatedComments03/02/2019 2:48 PM03/03/2019 5:59 PMDate ActivatedDate DvoxtwjrlpdIqlejxts63/17/2024 10:40 PM07/23/2024 7:57 PMDate ActivatedDate InactivatedComments12/20/2023 10:13 PM12/23/2023 5:45 PMDate ActivatedDate FzrdkmghveyCvwyuesv41/2/2023 6:38 AM06/05/2023 7:25 PMDate ActivatedDate InactivatedComments03/02/2019 2:48 PM03/03/2019 5:59 PMDate ActivatedDate DxtxvculelxJbsjkrvm66/17/2024 10:40 PM07/23/2024 7:57 PMDate ActivatedDate InactivatedComments12/20/2023 10:13 PM12/23/2023 5:45 PMDate ActivatedDate TbijfaesepoZeibakfy57/2/2023 6:38 AM06/05/2023 7:25 PMDate ActivatedDate InactivatedComments03/02/2019 2:48 [...] hyperglycemia, with long-term current use of insulin ([facility] Diaz Dalton MD [address] [place] [address] Referral IDStatusReasonStart DateExpiration DateVisits RequestedVisits [id number] Review/[id number] / ProceduresReferred By ContactReferred To Contact Diagnoses Hypoxia Dyspnea on exertion Procedures Home O2 eval (desaturation screen) Lindsay Arrieta, DO [address] [address] Referral IDStatusReasonStart DateExpiration DateVisits RequestedVisits [id number] Review/[id number] / ProceduresReferred By ContactReferred To ContactRadiology Diagnoses Mediastinal lymphadenopathy Procedures CT chest with contrast Lindsay Arrieta, DO [address] [address] [place] [address] [place] [address] Phone: [phone] Referral IDStatusReasonStart DateExpiration DateVisits RequestedVisits [id number] Review/[id number] / ProceduresReferred By ContactReferred To Contact Diagnoses Moderate persistent asthma without complication Lindsay Arrieta, [place] [address] Referral IDStatusReasonStart DateExpiration DateVisits RequestedVisits [id number]/17/20246/[id number] / Procedures Referred By ContactReferred To Contact Diagnoses Dyspnea on exertion Chronic hypoxic respiratory failure (CMS-HCC) Moderate persistent asthma without complication Procedures Oxygen Therapy Lindsay Arritea, [place] [address] Referral IDStatusReasonStart DateExpiration DateVisits RequestedVisits [id number] [id number] / ProceduresReferred By ContactReferred To Contact Diagnoses Dyspnea on exertion Chronic hypoxic respiratory failure (CMS-HCC) Procedures Echo complete W/O contrast Lindsay Arrieta, [place] [address] Referral IDStatusReasonStart DateExpiration DateVisits RequestedVisits [id number] [id number] / ProceduresReferred By ContactReferred To Contact Diagnoses Chronic hypoxic respiratory failure (CMS-HCC) SOB (shortness of breath) Hypoxia Procedures Oxygen Therapy Lindsay Arrieta, [address] [address] Referral IDStatusReasonStart DateExpiration DateVisits RequestedVisits [id number] Review/[id number] / ProceduresReferred By ContactReferred To Contact Diagnoses JOSE M (obstructive sleep apnea) Chronic hypoxic respiratory failure (CMS-HCC) Severe obesity (BMI >= 40) ([facility]) Procedures Polysomnography 4 or more parameters with PAP titration Smitha Germain MD [address] [facility] [address] [place] [address] Referral IDStatusReasonBrockwell DateExpiration DateVisits RequestedVisits [id number] [id number] / ProceduresReferred By ContactReferred To Contact Diagnoses JOSE M (obstructive sleep apnea) Chronic hypoxic respiratory failure ([facility]) Severe obesity (BMI >= 40) ([facility]) Procedures PSG Diagnostic Smitha Germain MD [address] [facility] [address] [place] [address] Referral IDStatusReasonStart DateExpiration DateVisits RequestedVisits [id number] Review Chief Complaint and Reason for Visit [...] section and content) DATE CREATED AUTHOR 02/07/2021 [facility] DATE CREATED AUTHOR AUTHOR'S ORGANIZ ATION 02/20/2021 [facility] DATE CREATED AUTHOR AUTHOR'S ORGANIZ ATION 06/06/2021 [facility] DATE CREATED AUTHOR AUTHOR'S ORGANIZ ATION 10/01/2021 [facility] DATE CREATED AUTHOR AUTHOR'S ORGANIZ ATION 10/06/2021 [facility] DATE CREATED AUTHOR AUTHOR'S ORGANIZ ATION 12/09/2022 [facility] DATE CREATED AUTHOR AUTHOR'S ORGANIZ ATION 01/13/2023 [facility] DATE CREATED AUTHOR AUTHOR'S ORGANIZ ATION 07/17/2024 [facility] DATE CREATED AUTHOR AUTHOR'S ORGANIZ ATION 05/08/2025 [facility] DATE CREATED AUTHOR AUTHOR'S ORGANIZ ATION 05/16/2025 [facility] DATE CREATED AUTHOR AUTHOR'S ORGANIZ ATION 06/08/2025 [facility] DATE CREATED AUTHOR AUTHOR'S ORGANIZ ATION 06/21/2025 [facility] DATE CREATED AUTHOR AUTHOR'S ORGANIZ ATION 07/07/2025 [facility] Ordered Prescriptions (unrec ognized section and content) PrescriptionSigDispensedRefillsStart DateEnd Date albuterol sulfate HFA 108 (90 Base) MCG/ACT inhaler Inhale 2 puffs into the lungs every 6 hours as needed for Wheezing or Shortness of Breath 1 each /09/2021 Scheduled Active and Recently Administ ered Medications (unrecognized section and content) Medication Order// azithromycin (ZITHROMAX) 500 mg in dextrose 5% 250 mL IVPB (CANCELED) 500 mg, IntraVENous, EVERY 24 HOURS, First dose on Mon09/28/21 at 1400, Until Discontinued * 1505 (New Bag - Provider: Kaylan Mulligan, RN) * 1605 (Stopped - Provider: Kaylan Mulligan, RN) cefTRIAXone [...] * 1400 (Automatically Held - Provider: Terrance Smalls PA-C) * 1818 (Unheld by provider - Provider: Guido Salas DO) * 2109 (Given - Provider: Danica Platt RN) * 0609 (Given - Provider: Danica Platt RN) * 1510 (Given - Provider: Li Phelan RN) * 2245 (Given - Provider: Chinyere Aquino RN) * 0556 (Given - Provider: Cely Ro RN) * 1400 (Due - Provider: Guido Salas DO) * 2200 (Due - Provider: Guido Salas DO) insulin glargine (LANTUS) injection vial 20 Units 20 Units, SubCUTAneous, NIGHTLY, First dose on Mon10/01/21 at 2100 * 2058 (Given - Provider: Danica Platt RN) * 210 (Given - Provider: Cely Ro RN) * 2100 (Due) insulin lispro [...] BS 131) * 2105 (Given - Provider: Cely Ro RN) * 0652 (Not Given - Provider: Cely Ro [...] PRN, Per Potassium Replacement Protocol, Starting on [facility] 09/30/21 at 1607
Administer as alternative if [...] mg, oral, Nightly, First dose on Joaquina 24 at 2200, Look-alike/sound-alike medication - verifyindication for [...] or chew. * 0921 (Given - Provider: Jarde Huerta) * 0843 (Given - Provider: Jania Sierra, GEORGINA) * 0820 (Given - Provider: Lindsey Bryant, GEORGINA) cefTRIAXone (ROCEPHIN) IVPB 1000 mg/50 mL in [...] Bag - Provider: Archana Hernandez, GEORGINA) * 221 (Stop Bag - Provider: Archana Hernandez, GEORGINA) * 1999 (Due) cholecalciferol (vitamin D3) tablet 400 Units 400 Units, oral, Daily, First dose on Joaquina 24 at 0900 * 0921 (Given - Provider: Jared Huerta) * 0843 (Given - Provider: Jania Sierra, GEORGINA) * 0820 (Given - Provider: Lindsey Bryant, GEORGINA) enoxaparin (LOVENOX) syringe 40 mg 40 mg, subcutaneous, Every 12 hours, First dose (after last reorder) on Joaquina 12/21/23 at 0600, Look-alike/sound-alike medication - verify indication for use. 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) * 0815 (Given [...] (Given - Provider: Clarita Morataya RN) * 214 (Given - Provider: Archana Hernandez RN - Comment: bs 269) * 2200 (Due) lamoTRIgine (LaMICtal) tablet 200 mg 200 [...] Huerta) * 0843 (Given - Provider: Jania iSerra, GEORGINA) * 0820 (Given - Provider: Lindsey Bryant, [...] RN) * 0821 (Given - Provider: Lindsey Bryant RN) Medication Order/// sodium chloride 0.9 % infusion 100 mL/hr, intravenous, Continuous, Starting on Mon12/20/23 at 2215 * 0106 (Rate/Dose Verify - Provider: Anh Dang RN) * 1719 (Rate/Dose Change - Provider: Clarita Morataya, GEORGINA) * 1809 (Rate/Dose Change - Provider: Clarita Morataya, GEORGINA) * 1810 (Stop Bag - Provider: Clarita Morataya RN) * 0404 (Stop Bag - Provider: Clarita Morataya RN) * 0404 (New Bag - Provider: Clarita Morataya RN) * 0713 (Rate/Dose Verify - Provider: Clarita Morataya RN) Medication Order/// acetaminophen (TYLENOL) tablet 650 mg 650 mg, oral, Every 4 hours PRN, Temperature greater than 38.3 C, Starting on Mon12/20/23 at 2211, [Warning: Total Acetaminophen not to exceed more than 4 grams (4000 mg) in 24 hours] * 1134 (Given - Provider: Lindsey Bryant RN) alum-mag hydroxide-simeth (MAALOX) 200-200-20 [...] MemberRelationshipSpecialtyStart DateEnd Date Diaz Dalton MD [address] [place] [address] [facility] - [facility]/28/21Team MemberRelationshipSpecialtyStart DateEnd Date Diaz Dalton MD [address] [place] [address] PCP - GeneralFamily Medicine09/25/23Team MemberRelationshipSpecialtyStart DateEnd Date Diaz Dalton MD [address] [place] [address] PCP - GeneralFamily Medicine09/25/23Team MemberRelationshipSpecialtyStart DateEnd Date Diaz Dalton MD [address] [place] [address] PCP - GeneralFamily Medicine09/25/23Team MemberRelationshipSpecialtyStart DateEnd Date Diaz Dalton MD [address] [place] [address] PCP - GeneralFamily Medicine09/25/23Team MemberRelationshipSpecialtyStart DateEnd Date Diaz Dalton MD [address] [place] [address] PCP - GeneralFamily Medicine09/25/23Team MemberRelationshipSpecialtyStart DateEnd Date Diaz Dalton MD [address] [place] [address] PCP - GeneralFamily Medicine09/25/23Team MemberRelationshipSpecialtyStart DateEnd Date Diaz Dalton MD [address] [place] [address] PCP - GeneralFamily Ctioxfhq15/25/24Team MemberRelationshipSpecialtyStart Date End Date Diaz Dalton MD [address] [place] [address] PCP - GeneralFamily Medicine09/25/23Team MemberRelationshipSpecialtyStart DateEnd Date Diaz Dalton MD [address] [place] [address] PCP - GeneralFamily Medicine09/25/23Team MemberRelationshipSpecialtyStart DateEnd Date Diaz Dalton MD [address] [place] [address] PCP - GeneralFamily Medicine09/25/23Team MemberRelationshipSpecialtyStart DateEnd Date Diaz Dalton MD [address] [place] [address] PCP - GeneralFamily Medicine09/25/23Team MemberRelationshipSpecialtyStart DateEnd Date Diaz Dalton MD [address] [place] [address] PCP - GeneralFamily Medicine09/25/23Team MemberRelationshipSpecialtyStart DateEnd Date Diaz Dalton MD [address] [place] [address] PCP - GeneralFamily Medicine09/25/23Team MemberRelationshipSpecialtyStart DateEnd Date Diaz Dalton MD [address] [place] [address] PCP - GeneralFamily Medicine09/25/23Team MemberRelationshipSpecialtyStart DateEnd Date Diaz Dalton MD [address] [place] [address] PCP - GeneralFamily Medicine09/25/23Team MemberRelationshipSpecialtyStart DateEnd Date Diaz Dalton MD [address] [place] [address] PCP - GeneralFamily Medicine09/25/23Team MemberRelationshipSpecialtyStart DateEnd Date Diaz Dalton MD [address] [place] [address] PCP - GeneralFamily Medicine09/25/23Team MemberRelationshipSpecialtyStart DateEnd Date Diaz Dalton MD [address] [place] [address] PCP - GeneralFamily Medicine09/25/23Team MemberRelationshipSpecialtyStart DateEnd Date Diaz Dalton MD [address] [place] [address] PCP - GeneralFamily Medicine09/25/23Team MemberRelationshipSpecialtyStart DateEnd Date Diaz Dalton MD [address] [place] [address] PCP - GeneralFamily Medicine09/25/23Team MemberRelationshipSpecialtyStart DateEnd Date Diaz Dalton MD [address] [place] [address] PCP - GeneralFamily Medicine09/25/23Team MemberRelationshipSpecialtyStart DateEnd Date Diaz Dalton MD [address] [place] [address] PCP - GeneralFamily Medicine09/25/23Team MemberRelationshipSpecialtyStart DateEnd Date Diaz Dalton MD [address] [place] [address] PCP - GeneralFamily Medicine09/25/23Team MemberRelationshipSpecialtyStart DateEnd Date Diaz Dalton MD [address] [place] [address] PCP - GeneralFamily Medicine09/25/23Team MemberRelationshipSpecialtyStart DateEnd Date Diaz Dalton MD [address] [place] [address] PCP - GeneralFamily Medicine09/25/23Team MemberRelationshipSpecialtyStart DateEnd Date Diaz Dalton MD [address] [place] [address] PCP - GeneralFamily Czrhpvqx36/25/24Team MemberRelationshipSpecialtyStart Date End Date Diaz Dalton MD [address] [place] [address] PCP - GeneralFamily Gklwfmin85/25/24Team MemberRelationshipSpecialtyStart Date End Date Diaz Dalton MD [address] [place] [address] PCP - GeneralFamily Wubwtkgy06/25/24Team MemberRelationshipSpecialtyStart Date End Date Diaz Dalton MD [address] [place] [address] PCP - GeneralFamily Unwfzjpz41/25/24Team MemberRelationshipSpecialtyStart Date End Date Diaz Dalton MD [address] [place] [address] PCP - GeneralFamily Medicine09/25/23Team MemberRelationshipSpecialtyStart DateEnd Date Diaz Dalton MD [address] [place] [address] PCP - GeneralFamily Medicine09/24/21Team MemberRelationshipSpecialtyStart DateEnd Date Diaz Dalton MD [address] [place] [address] PCP - GeneralFamily Medicine09/24/21Team MemberRelationshipSpecialtyStart DateEnd Date Diaz Dalton MD [address] [place] [address] PCP - GeneralFamily Medicine09/24/21Team MemberRelationshipSpecialtyStart DateEnd Date Diaz Dalton MD [address] [place] [address] PCP - GeneralFamily Medicine09/24/21Team MemberRelationshipSpecialtyStart DateEnd Date Diaz Dalton MD [address] [place] [address] PCP - GeneralFamily Medicine09/24/21Team MemberRelationshipSpecialtyStart DateEnd Date Diaz Dalton MD [address] [place] [address] PCP - GeneralFamily Medicine09/24/21Team MemberRelationshipSpecialtyStart DateEnd Date Diaz Dalton MD [address] [place] [address] PCP - GeneralFamily Medicine09/24/21Team MemberRelationshipSpecialtyStart DateEnd Date Diaz Dalton MD [address] [place] [address] PCP - GeneralFamily Medicine09/24/21Team MemberRelationshipSpecialtyStart DateEnd Date Diaz Dalton MD [address] [place] [address] PCP - GeneralFamily Medicine09/24/21Team MemberRelationshipSpecialtyStart DateEnd Date Diaz Dalton MD [address] [place] [address] PCP - GeneralFamily Medicine09/24/21Team MemberRelationshipSpecialtyStart DateEnd Date Diaz Dalton MD [address] [place] [address] PCP - GeneralFamily Medicine09/24/21Team MemberRelationshipSpecialtyStart DateEnd Date Diaz Dalton MD [address] [place] [address] PCP - GeneralFamily Medicine09/24/21Team MemberRelationshipSpecialtyStart DateEnd Date Diaz Dalton MD [address] [place] [address] PCP - GeneralFamily Medicine09/24/21Team MemberRelationshipSpecialtyStart DateEnd Date Diaz Dalton MD PCP - GeneralFamily Medicine09/24/21Team MemberRelationshipSpecialtyStart DateEnd Date Diaz Dalton MD PCP - GeneralFamily Medicine09/24/21Team MemberRelationshipSpecialtyStart DateEnd Date Diaz Dalton MD PCP - GeneralFamily Medicine09/24/21Team MemberRelationshipSpecialtyStart DateEnd Date Diaz Dalton MD PCP - GeneralFamily Medicine05/16/24Team MemberRelationshipSpecialtyStart DateEnd Date Diaz Dalton MD [address] [place] [address] PCP - GeneralFamily Medicine05/28/24Team MemberRelationshipSpecialtyStart DateEnd Date Diaz Dalton MD [address] [place] [address] PCP - GeneralFamily Medicine05/28/24Team MemberRelationshipSpecialtyStart DateEnd Date Diaz Dalton MD [address] [place] [address] PCP - GeneralFamily Medicine05/28/24Team MemberRelationshipSpecialtyStart DateEnd Date Diaz Dalton MD [address] [place] [address] PCP - GeneralFamily Medicine05/28/24Team MemberRelationshipSpecialtyStart DateEnd Date Diaz Dalton MD [address] [place] [address] PCP - GeneralFamily Jqqktfjo72/25/24Team MemberRelationshipSpecialtyStart Date End Date Diaz Dalton MD [address] [place] [address] PCP - GeneralFamily Xihlfjys61/25/24Team MemberRelationshipSpecialtyStart Date End Date Diaz Dalton MD [address] [place] [address] PCP - GeneralFamily Jdteoajl89/25/24Team MemberRelationshipSpecialtyStart Date End Date Diaz Dalton MD [address] [place] [address] PCP - GeneralFamily Dldavfra30/25/24Team MemberRelationshipSpecialtyStart Date End Date Diaz Dalton MD [address] [place] [address] PCP - GeneralFamily Yrvipkkg05/25/24Team MemberRelationshipSpecialtyStart Date End Date Diaz Dalton MD [address] [place] [address] PCP - GeneralFamily Medicine09/25/23Team MemberRelationshipSpecialtyStart DateEnd Date Diaz Dalton MD [address] [place] [address] PCP - GeneralFamily Medicine09/25/23Team MemberRelationshipSpecialtyStart DateEnd Date Diaz Dalton MD [address] [place] [address] PCP - GeneralFamily Medicine09/25/23Team MemberRelationshipSpecialtyStart DateEnd Date Diaz Dalton MD [address] [place] [address] PCP - GeneralFamily Medicine09/25/23Team MemberRelationshipSpecialtyStart DateEnd Date Diaz Dalton MD PCP - GeneralFamily Medicine10/27/24Team MemberRelationshipSpecialtyStart DateEnd Date Diaz Dalton MD PCP - GeneralFamily Medicine10/27/24Team MemberRelationshipSpecialtyStart DateEnd Date Diaz Dalton MD PCP - Generalmily Medicine10/27/24Team MemberRelationshipSpecialtyStart DateEnd Date Diaz Dalton MD [facility]/27/24Team MemberRelationshipSpecialtyStart DateEnd Date Diaz Dalotn MD [address] [place] [address] PCP - Generalmily Medicine09/25/23Team MemberRelationshipSpecialtyStart DateEnd Date Diaz Dalton MD [address] [place] [address] PCP - Generalmily Medicine09/25/23Team MemberRelationshipSpecialtyStart DateEnd Date Diaz Dalton MD PCP - Generalmily Medicine10/27/24Team MemberRelationshipSpecialtyStart DateEnd Date Diaz Dalton MD [address] [place] [address] PCP - GeneralFamily Medicine09/25/23Team MemberRelationshipSpecialtyStart DateEnd Date Diaz Dalton MD [address] [place] [address] PCP - GeneralFamily Medicine09/25/23Team MemberRelationshipSpecialtyStart DateEnd Date Diaz Dalton MD [address] [place] [address] PCP - GeneralFamily Medicine09/25/23Team MemberRelationshipSpecialtyStart DateEnd Date Diaz Dalton MD PCP - GeneralFamily Medicine10/27/24Team MemberRelationshipSpecialtyStart DateEnd Date Diaz Dalton MD PCP - GeneralFamily Medicine10/27/24Team MemberRelationshipSpecialtyStart DateEnd Date Diaz Dalton MD PCP - GeneralFamily Medicine10/27/24Team MemberRelationshipSpecialtyStart DateEnd Date Diaz Dalton MD [address] [place] [address] PCP - GeneralFamily Medicine09/25/23Team MemberRelationshipSpecialtyStart DateEnd Date Diaz Dalton MD PCP - GeneralFamily Medicine10/27/24Team MemberRelationshipSpecialtyStart DateEnd Date Diaz Dalton MD PCP - GeneralFamily Medicine10/27/24Team MemberRelationshipSpecialtyStart DateEnd Date Diaz Dalton MD [address] [place] [address] PCP - GeneralFamily Medicine09/25/23Team MemberRelationshipSpecialtyStart DateEnd Date Diaz Dalton MD [address] [place] [address] PCP - GeneralFamily Medicine09/25/23Team MemberRelationshipSpecialtyStart DateEnd Date Diaz Dalton MD [address] [place] [address] PCP - GeneralFamily Medicine09/25/23Team MemberRelationshipSpecialtyStart DateEnd Date Diaz Dalton MD [address] [place] [address] PCP - GeneralFamily Medicine09/25/23Team MemberRelationshipSpecialtyStart DateEnd Date Diaz Dalton MD [address] [place] [address] PCP - GeneralFamily Medicine09/25/23Team MemberRelationshipSpecialtyStart DateEnd Date Diaz Dalton MD [address] [place] [address] PCP - GeneralFamily Medicine09/25/23Team MemberRelationshipSpecialtyStart DateEnd Date Diaz Dalton MD [address] [place] [address] PCP - GeneralFamily Medicine09/25/23Team MemberRelationshipSpecialtyStart DateEnd Date Diaz Dalton MD [address] [place] [address] PCP - GeneralFamily Medicine09/25/23Team MemberRelationshipSpecialtyStart DateEnd Date Diaz Dalton MD [address] [place] [address] PCP - GeneralFamily Medicine09/25/23Team MemberRelationshipSpecialtyStart DateEnd Date Diaz Dalton MD [address] [place] [address] PCP - GeneralFamily Medicine09/25/23Team MemberRelationshipSpecialtyStart DateEnd Date Diaz Dalton MD [address] [place] [address] PCP - GeneralFamily Medicine09/25/23Team MemberRelationshipSpecialtyStart DateEnd Date Diaz Dalton MD [address] [place] [address] PCP - GeneralFamily Medicine09/25/23Team MemberRelationshipSpecialtyStart DateEnd Date Diaz Dalton MD [address] [place] [address] [facility]09/25/23Team MemberRelationshipSpecialtyStart DateEnd Date Diaz Dalton MD PCP - [facility] Medicine10/27/24 Team Status: Active Member Role Status Dates Diaz Dalton MD Primary Care Provider Active Team Status: Inactive Member Role Status Dates Diaz Dalton MD Primary Care Provider Active S tart: May 01, 2025 End: May 01, 2025Randall Soria MDAttending ProviderActiveStart: May 01, 2025 End: May 01, 2025Team MemberRelationshipSpecialtyStart DateEnd Date Diaz Dalton MD PCP - [facility]10/27/24Team MemberRelationshipSpecialtyStart DateEnd Date Diaz Dalton MD PCP - [facility]10/27/24Team MemberRelationshipSpecialtyStart DateEnd Date Diaz Dalton MD PCP - [facility]10/27/24 Team Status: Inactive Member Role Status Dates Diaz Dalton MD Primary Care Provider Active S tart: May 15, 2025 End: May 15, 2025Arsalan Curran ProviderActiveStart: May 15, 2025 End: May 15, 2025Team MemberRelationshipSpecialtyStart DateEnd Date Diaz Dalton MD PCP - [facility]09/25/23Team MemberRelationshipSpecialtyStart DateEnd Date Diaz Dalton MD PCP - Generalmily Medicine09/25/23Team MemberRelationshipSpecialtyStart DateEnd Date Diaz Dalton MD PCP - GeneralFamily Medicine09/25/23Team MemberRelationshipSpecialtyStart DateEnd Date Diaz Dalton MD PCP - [facility] Medicine09/25/23 Team Status: Inactive Member Role Status Dates Diaz Dalton MD Primary Care Provider Active S tart: June 05, 2025 End: June 05, 2025Diaz Dalton MDAttangel ProviderActiveStart: June 05, 2025 End: June 05, 2025Team MemberRelationshipSpecialtyStart DateEnd Date Diaz Dalton MD PCP - [facility]10/27/24 Team Status: Inactive Member Role Status Dates Diaz Dalton MD Primary Care Provider Active S tart: June 12, 2025 End: June 12, 2025Randall Soria MDAttending ProviderActiveStart: June 12, 2025 End: June 12, 2025Team MemberRelationshipSpecialtyStart DateEnd Date Diaz [facility]Team MemberRelationshipSpecialtyStart DateEnd Date Diaz Dalton MD PCP - Generalmily Medicine09/25/23Team MemberRelationshipSpecialtyStart DateEnd Date Diaz Dalton MD PCP - GeneralFamily Medicine10/27/24 Reason for Visit (unrecogniz ed section and content) ReasonCommentsPost-opReasonCommentsAmenorrheaReasonOnset DateCommentsmedical qinwpeezl40/30/2024ReasonCommentsWound CheckS/P Cath 06/26/24ReasonComments Follow-upReasonOnset DateCommentsMed [id number] DateCommentsMed Ktmcmi414ReasonCommentsFollow-up[facility] f/UPReasonCommentsWell Women VisitReasonCommentsMed RefillReasonCommentsencounter to discuss test results ReasonCommentsFollow-qp0qQxeekrkvlxTvxpyxEmfacihnXdvh PainFell 05/15/24Reason CommentsPainReasonOnset DateCommentsMed Plljxp004ReasonOnset DateComments Med Mpdlyk0309/19/2024ReasonOnset DateCommentsMed Gbsiin9809/23/2024ReasonOnset Date CommentsMed Zkpxuf5409/25/2024ReasonCommentsFollow-up3 MONTHSShortness of BreathON EXERTIONReasonCommentsFoot PainCarissa Santos 44yo. Patient relates her left foot is always numb, started about 9 months ago. NKI.ReasonCommentsCoughDenies Shortness of BreathDeniesWheezingDeniesSpecialtyDiagnoses / ProceduresReferred By ContactReferred To ContactPulmonary Medicine Diagnoses Mediastinal lymphadenopathy Ryan Mcnela MD [address] [facility] [facility] [place] [address] [facility] Sleep Med [address] [id number] Referral IDStatusReasonStart DateExpiration DateVisits RequestedVisits [id number] Review Specialty Services Required [id number] of BreathSpecialtyDiagnoses / ProceduresReferred By ContactReferred To Contact Diagnoses SOB (shortness of breath) Hyperglycemia Acute cystitis without hematuria Ezequiel Graff MD [address] [place] [address] Referral IDStatusReasonStart DateExpiration DateVisits RequestedVisits [id number] lymphadenopathyCXR 1 VW: 7Bronch: 4PFT: not completedLabs: not completedSpecialty Diagnoses / ProceduresReferred By ContactReferred To ContactPulmonary Medicine Diagnoses Hypoxia Eddie Zurita, MERCHANDISING COORDINATOR-DRAGLINE MECHANIC [address] [place] [address] Lindsay Arrieta, DO [address] [place] [address] Ref[facility]Status[facility] DateExpiration DateVisits RequestedVisits [id number] Review Specialty Services Required /[id number] RefillReasonCommentsSleep ApneaNo previous sleep studyNo PAP therpayArrived on 2Lnc of O2Uses 3Lnc of O2 at HSReasonOnset DateCommentsSleep Lab4Comp PSG/PAPReasonCommentsFollow-upMediastinal lymphadenopathyCT: 04/23/2024On 2Lnc of O2 on exertion, on 3Lnc of O2 at nightArrived on 3Lnc of K7GyqzzkFhhep DateCommentsCardiac Cath4Reason CommentsFollow-upEST PT F/U CATH DONE L/S LLD SCHED W/PTReasonOnset DateComments Abnormal Lab4ReasonOnset DateCommentsCRITICAL LAB4Reason CommentsSleep ApneaCompliance/Setup: 09/19/2024DME: HartArrived on 3Lnc of O2, on 3Lnc of O2 on exertionReasonCommentsFollow-up3mo ov, l/s LLD - no labs/testing - appt sched w/ ptReasonCommentsFollow-up3m f/upLeft knee pain DepressionCoughWith sore throatReasonCommentsPainReasonOnset DateCommentsPPMM /02/2025ReasonOnset DateCommentsin pain02/27/2025ReasonComments Follow-upRight upper lobe nodule, c/o increased SOB, using TrelegyShortness of BreathCurrently 3 liters with PO and 3 liters with concentratorCoughNot really WheezingnoneReasonCommentsGenital WartsReasonCommentsFollow-upReasonOnset Date CommentsMed Uairjb2803/24/2025ReasonOnset DateCommentsre: PT so far03/28/2025 ReasonOnset DateCommentscalled and said that therapy is making her pain worse 03/27/2025ReasonOnset DateCommentsCx PT 04/07/2508ReasonCommentsLeft Ovarian PainReasonOnset DateCommentsMedial aspect of her eye and nose04/23/2025 ReasonCommentsFollow-upPatient needs F2F notes for recent home O2 evaluation per [facility] O2 Evaluation: 05/07/2025DME: [place] 3Lnc of O1Tiwwfj CommentsPre-op VisitReasonOnset DateComments? ylrgurh0005/29/2025ReasonOnset Date CommentsSurgical Or Dental Cqxnhdmfx48/06/2025ReasonCommentsFollow-upCongestive Heart FailurePre-op ExamKnee Arthroscope, not yet Dr Manuel hinson Goals (unrecognized section and content) Goals may [...] BE BASED ON THE PRIMARY CLINICAL RECORDS. [employer] [facility]. provides no warranty or guarantee of the accuracy or completeness of information in this document.
[2025-07-21 20:30] VITALS: BP 157/97
--- NOTE | 2025-07-21 20:41 | ED.GENADUL1 ---
HPI HPI - General Adult General Chief complaint: Skin/Abscess/Foreign Body Stated complaint: Abscess to side of mouth Time Seen by Provider: 07/21/25 19:27 Source: patient Mode of arrival: ambulance History of Present Illness HPI narrative: Patient is a 45-year-old female that presents to the emergency department via EMS with complaints of abscess to the right corner of her mouth that started a few days ago. She denies any fever, night sweats, or chills at home. She denies that it has drained at home or that she has been picking at it. Related Data Home Medications ?Medication ?Instructions ?Recorded ?Confirmed acyclovir 400 mg tablet 400 mg PO Q8H 03/16/23 06/06/25 albuterol sulfate 90 mcg/actuation 2 inh inhalation Q4H PRN shortness 03/16/23 06/06/25 aerosol inhaler (ProAir HFA) of breath or wheezing atorvastatin 40 mg tablet 40 mg PO DAILY 03/16/23 06/06/25 bupropion HCl 300 mg 24 hr tablet, 300 mg PO DAILY 03/16/23 06/06/25 extended release cholecalciferol (vitamin D3) 50 50 mcg PO DAILY 03/16/23 06/06/25 mcg (2,000 unit) capsule dicyclomine 20 mg tablet 20 mg PO QID PRN abdominal pain 03/16/23 06/06/25 dulaglutide 3 mg/0.5 mL 3 mg subcut QWEEK 03/16/23 06/06/25 subcutaneous pen injector (Trulicity) furosemide 40 mg tablet 40 mg PO DAILY 03/16/23 06/06/25 insulin aspart U-100 100 unit/mL 1 sliding scale dose subcut 03/16/23 06/06/25 subcutaneous cartridge USEASDIRECTD lamotrigine 200 mg tablet 200 mg PO DAILY 03/16/23 06/06/25 (Lamictal) lorazepam 1 mg tablet (Ativan) 1 mg PO Q8H PRN anxiety 03/16/23 06/06/25 oxybutynin chloride 15 mg 15 mg PO DAILY 03/16/23 06/06/25 tablet,extended release 24 hr pantoprazole 40 mg tablet,delayed 40 mg PO DAILY 03/16/23 06/06/25 release (Protonix) pioglitazone 45 mg tablet 45 mg PO DAILY 03/16/23 06/06/25 prazosin 2 mg capsule (Minipress) 2 mg PO DAILY 03/16/23 06/06/25 sumatriptan succinate 25 mg tablet See Rx Instructions PO .COMPLEX 03/16/23 06/06/25 black cohosh 40 mg tablet 40 mg PO DAILY 06/02/25 06/06/25 Held on 06/05/25. Instructions: stop taking citalopram 40 mg tablet (Celexa) 40 mg PO DAILY 06/02/25 06/06/25 cyclobenzaprine 10 mg tablet 10 mg PO Q8H PRN spasms 06/02/25 06/06/25 dicyclomine 20 mg tablet 20 mg PO QID 06/02/25 06/06/25 dulaglutide 1.5 mg/0.5 mL 1.5 mg subcut .q week 06/02/25 06/06/25 subcutaneous pen injector (Trulicity) empagliflozin 25 mg tablet 25 mg PO DAILY 06/02/25 06/06/25 (Jardiance) fluticasone fur. 200 mcg-umeclid 1 inh inhalation DAILY 06/02/25 06/06/25 62.5 mcg-vilant 25 mcg inhalat.powder (Trelegy Ellipta) insulin glargine 100 unit/mL (3 20 unit subcut BID 06/02/25 06/06/25 mL) subcutaneous pen (Lantus Solostar U-100 Insulin) lisinopril 2.5 mg tablet 2.5 mg PO DAILY 06/02/25 06/06/25 metoprolol tartrate 50 mg tablet 50 mg PO Q12H 06/02/25 06/06/25 nabumetone 500 mg tablet 500 mg PO BID 06/02/25 06/06/25 ondansetron HCl 4 mg tablet 4 mg PO Q12H PRN nausea and 06/02/25 06/06/25 vomiting trazodone 150 mg tablet 150 mg PO DAILY 06/02/25 06/06/25 Previous Rx's ?Medication ?Instructions ?Recorded doxycycline monohydrate 100 mg 100 mg PO BID 7 days #14 caps 07/21/25 capsule Allergies Allergy/AdvReac Type Severity Reaction Status Date / Time sulfamethoxazole (From Allergy Hives Verified 06/05/25 10:08 Bactrim) trimethoprim (From Bactrim) Allergy Hives Verified 06/05/25 10:08 antibiotic AdvReac Intermediate redness Uncoded 06/05/25 10:08 Opioid HPI Opioid Management Most Recent Opioid Data: Last Pain Scale 10 07/21/25, 20:55 Last MAR Pain Assessment 07/21/25, 20:55 Review of Systems ROS Status of ROS 10 or more systems reviewed and unremarkable except as noted in history and below [facility] Medical History (Updated 07/21/25 @ 20:49 by ROSAURA Hand) BiPAP (biphasic positive airway pressure) dependence ?Z99.89 - Dependence on other enabling machines and devices (ICD-10) Sleep apnea ?G47.30 - Sleep apnea, unspecified (ICD-10) Vitamin D deficiency ?E55.9 - Vitamin D deficiency, unspecified (ICD-10) Pulmonary hypertension ?I27.20 - Pulmonary hypertension, unspecified (ICD-10) Moderate persistent asthma ?J45.40 - Moderate persistent asthma, uncomplicated (ICD-10) Benign essential hypertension ?I10 - Essential (primary) hypertension (ICD-10) Obesity hypoventilation syndrome ?E66.2 - Morbid (severe) obesity with alveolar hypoventilation (ICD-10) Spondylosis ?M47.9 - Spondylosis, unspecified (ICD-10) Dyslipidemia ?E78.5 - Hyperlipidemia, unspecified (ICD-10) Panic disorder with agoraphobia ?F40.01 - Agoraphobia with panic disorder (ICD-10) Overactive bladder ?N32.81 - Overactive bladder (ICD-10) Osteoarthritis ?M19.90 - Unspecified osteoarthritis, unspecified site (ICD-10) Obstructive sleep apnea ?G47.33 - Obstructive sleep apnea (adult) (pediatric) (ICD-10) Mild developmental delay ?R62.50 - Unspecified lack of expected normal physiological development in childhood (ICD-10) IBS (irritable bowel syndrome) ?K58.9 - Irritable bowel syndrome, unspecified (ICD-10) Internal derangement of left shoulder ?M24.812 - Other specific joint derangements of left shoulder, not elsewhere classified (ICD-10) GERD (gastroesophageal reflux disease) ?K21.9 - Gastro-esophageal reflux disease without esophagitis (ICD-10) Equinus deformity of left foot ?M21.6X2 - Other acquired deformities of left foot (ICD-10) Chronic heart failure with preserved ejection fraction ?I50.32 - Chronic diastolic (congestive) heart failure (ICD-10) Contracture, left ankle ?M24.572 - Contracture, left ankle (ICD-10) JOHN (generalized anxiety disorder) ?F41.1 - Generalized anxiety disorder (ICD-10) Allergies ?T78.40XA - Allergy, unspecified, initial encounter (ICD-10) Genital warts ?A63.0 - Anogenital (venereal) warts (ICD-10) Extremity edema ?R60.0 - Localized edema (ICD-10) Depression ?F32.A - Depression, unspecified (ICD-10) Anxiety ?F41.9 - Anxiety disorder, unspecified (ICD-10) COVID-19 ?U07.1 - COVID-19 (ICD-10) Pneumonia ?J18.9 - Pneumonia, unspecified organism (ICD-10) Migraine ?G43.909 - Migraine, unspecified, not intractable, without status migrainosus (ICD-10) Seizures ?R56.9 - Unspecified convulsions (ICD-10) Heartburn ?R12 - Heartburn (ICD-10) Diabetes ?E11.9 - Type 2 diabetes mellitus without complications (ICD-10) Pelvic pain ?R10.2 - Pelvic and perineal pain (ICD-10) Pain of ovary ?N94.89 - Other specified conditions associated with female genital organs and menstrual cycle (ICD-10) Surgical History (Updated 06/02/25 @ 14:28 by Angie Sierra RN) History of salpingectomy ?Z90.79 - Acquired absence of other genital organ(s) (ICD-10) Hx of exploratory laparotomy ?Z98.890 - Other specified postprocedural states (ICD-10) History of carpal tunnel release ?Z98.890 - Other specified postprocedural states (ICD-10) History of surgical removal of lesion ?Z98.890 - Other specified postprocedural states (ICD-10) ?Z87.2 - Personal history of diseases of the skin and subcutaneous tissue (ICD-10) History of colonoscopy ?Z98.890 - Other specified postprocedural states (ICD-10) History of tubal ligation ?Z98.51 - Tubal ligation status (ICD-10) History of thyroidectomy ?E89.0 - Postprocedural hypothyroidism (ICD-10) History of cholecystectomy ?Z90.49 - Acquired absence of other specified parts of digestive tract (ICD-10) H/O adenoidectomy ?Z90.89 - Acquired absence of other organs (ICD-10) Family History (Updated 06/02/25 @ 14:25 by Angie Sierra RN) Other Asthma Family history of Alzheimer's disease Family history of diabetes mellitus Family history of hypertension Family history of leukemia Family history of myocardial infarction Family history of stroke Hyperlipidemia Social History Within the past year, how often did you have a drink containing alcohol: never Score interpretation: A score less than 3 is consistent with normal alcohol consumption. Smoking status: Never smoker Non-prescribed substance use: denies use Highest level of school completed/degree received: high school graduate Little interest or pleasure in doing things: several days Feeling down, depressed, or hopeless: nearly every day Exam Narrative Exam Narrative: General: No distress, age-appropriate Skin: Warm, dry, no pallor. No rash. Abscess 1.5 cm right lower corner of mouth, nondraining,scab in the middle, no surrounding erythema, mild induration around the borders of the abscess. Head: Normocephalic, atraumatic. Neck: Supple, non-tender. Eye: Pupils are equal, round and EOMI. No scleral icterus. Ears, Nose, Mouth, and Throat: No nasal mucosal hypertrophy. Oral mucosa is moist, no posterior oropharynx erythema, uvula is mid-line. No dental abscess. Cardiovascular: Regular Rate and Rhythm without murmur, gallop or rub. Respiratory: No accessory muscle use or respiratory distress. Musculoskeletal: Full ROM of all extremities, no calf or popliteal tenderness Neurological: A&O x4. No cranial nerve dysfunction observed. No truncal ataxia. Moves all extremities. Sensation intact. Psychiatric: Cooperative and interactive. Normal mood and affect. Constitutional Vital Signs, click to edit/add: Last Vital Signs Temp 98.0 F 07/21/25 18:49 Pulse 74 07/21/25 21:02 Resp 16 07/21/25 21:02 BP 141/82 07/21/25 21:02 Pulse Ox 97 07/21/25 21:02 O2 Del Method Room Air 11/17/25 21:02 Documenting provider has reviewed patient's vital signs: yes Course Vital Signs Vital signs: Vital Signs Temperature 98.0 F 07/21/25 18:49 Pulse Rate 93 H 07/21/25 18:49 Respiratory Rate 18 07/21/25 18:49 Blood Pressure 156/104 H 07/21/25 18:49 Pulse Oximetry 97 07/21/25 18:49 Oxygen Delivery Method Room Air 07/21/25 18:49 Temperature 98.0 F 07/21/25 18:49 Pulse Rate 74 07/21/25 21:02 Respiratory Rate 16 07/21/25 21:02 Blood Pressure 141/82 07/21/25 21:02 Pulse Oximetry 97 07/21/25 21:02 Oxygen Delivery Method Room Air 07/21/25 21:02 Medical Decision Making MDM Narrative Medical decision making narrative: The patient is a 45-year-old female presenting with a localized abscess at the right corner of the mouth. She is afebrile with stable vital signs and denies systemic symptoms such as fever, chills, or night sweats. Examination revealed a small abscess without surrounding cellulitis or lymphadenopathy. Given the localized nature of the infection and the presence of purulent material, incision and drainage (I&D) was performed in the ED. The patient has a documented sulfa allergy, so doxycycline 100mg BID x 7 days was chosen for empiric oral antibiotic coverage. First dose of antibiotic given in ED, Doxy 100mg PO. She tolerated the procedure well, and no complications were observed. She was discharged home with instructions for wound care, signs of worsening infection, and outpatient follow-up with Dr Dalton. Differential Diagnosis Differential Diagnosis: Bacterial skin abscess, folliculitis, cellulitis Discharge Plan Discharge Chief Complaint: Skin/Abscess/Foreign Body Clinical Impression: Abscess of face Patient Disposition: Home, Self-Care Time of Disposition Decision: 20:49 Condition: Good Mode of Transportation: Private Vehicle Prescriptions / Home Meds: New doxycycline monohydrate 100 mg capsule 100 mg PO BID 7 Days Qty: 14 0RF No Action Trulicity 3 mg/0.5 mL pen injector 3 mg subcut QWEEK insulin aspart U-100 100 unit/mL cartridge 1 sliding scale dose subcut USEASDIRECTD bupropion HCl 300 mg tablet extended release 24 hr 300 mg PO DAILY acyclovir 400 mg tablet 400 mg PO Q8H oxybutynin chloride 15 mg tablet extended release 24hr 15 mg PO DAILY prazosin [Minipress] 2 mg capsule 2 mg PO DAILY pioglitazone 45 mg tablet 45 mg PO DAILY pantoprazole [Protonix] 40 mg tablet,delayed release (DR/EC) 40 mg PO DAILY lamotrigine [Lamictal] 200 mg tablet 200 mg PO DAILY atorvastatin 40 mg tablet 40 mg PO DAILY cholecalciferol (vitamin D3) 50 mcg (2,000 unit) capsule 50 mcg PO DAILY lorazepam [Ativan] 1 mg tablet 1 mg PO Q8H PRN (Reason: anxiety) furosemide 40 mg tablet 40 mg PO DAILY dicyclomine 20 mg tablet 20 mg PO QID PRN (Reason: abdominal pain) sumatriptan succinate 25 mg tablet See Rx Instructions .ROUTE .COMPLEX Rx Instructions: take 1 tab at onset of headache; if no relief may repeat 1 tab after at least 2 hrs; max = 4 tabs/24 hr albuterol sulfate [ProAir HFA] 90 mcg/actuation HFA aerosol inhaler 2 inh inhalation Q4H PRN (Reason: shortness of breath or wheezing) black cohosh 40 mg tablet 40 mg PO DAILY citalopram [Celexa] 40 mg tablet 40 mg PO DAILY cyclobenzaprine 10 mg tablet 10 mg PO Q8H PRN (Reason: spasms) dicyclomine 20 mg tablet 20 mg PO QID Jardiance 25 mg tablet 25 mg PO DAILY lisinopril 2.5 mg tablet 2.5 mg PO DAILY metoprolol tartrate 50 mg tablet 50 mg PO Q12H nabumetone 500 mg tablet 500 mg PO BID ondansetron HCl 4 mg tablet 4 mg PO Q12H PRN (Reason: nausea and vomiting) trazodone 150 mg tablet 150 mg PO DAILY insulin glargine [Lantus Solostar U-100 Insulin] 100 unit/mL (3 mL) insulin pen 20 unit subcut BID Trelegy Ellipta 200-62.5-25 mcg blister with device 1 inh inhalation DAILY Trulicity 1.5 mg/0.5 mL pen injector 1.5 mg SUBCUT .q week Print Language: Sierra Leonean Instructions: Abscess Follow-up (ED), Abscess Incision and Drainage (DC) Referrals: Diaz Dalton MD [Primary Care Provider, [facility]] - 1 week Discharge Date/Time: 07/21/25 21:04 Procedures ED ID Incision & Drainage I&D Type: abcess Site: face Side (if applicable): right Sedation/analgesia: none Technique: needle aspiration Amount of fluid (mL): 1 Irrigation: Yes Packing used: none Complications: pain
[2025-07-21] MEDS: DOXYCYCLINE MONOHYDRATE 100 MG CAPSULE PO (20:55)
[2025-07-21] MEDS: ACETAMINOPHEN 500 MG TABLET PO (20:55)
[2025-07-21 21:02] VITALS: BP 141/82; PULSE 74; O2SAT 97
== END 2025-07-21 21:04 | disposition home or self-care (01) ==
PROVIDERS: Emergency Provider Internal Medicine; PCP Family Medicine
DX: L02.01 Cutaneous abscess of face (principal)
CPT/HCPCS: 10060; 99283

== ENCOUNTER 2025-08-06 12:34 | Outpatient (OUT) | payer MEDICAID, SELFPAY ==
--- OUTSIDE RECORDS SUMMARY | 2025-07-24 06:04 | XMS_ITS | Continuity of Care Document ---
Author Organization [facility] Address [address] [place] [address] Phone Care Team Providers Care Wire Threader Name Role Phone Diaz Dalton MD Primary Care Provider Randall Soria MD Attending Provider Diaz Dalton MD Attending Provider Care Teams Patient Care Team Team Status: Active Member Role/Relationship Status Dates Diaz Dalton MD Primary Care Provider Active Visit Care Team Team Status: Inactive Member Role/Relationship Status Dates Diaz Dalton MD Primary Care Provider Active S tart: May 01, 2025 End: May 01, 2025Arsalan Curran ProviderActiveStart: May 01, 2025 End: May 01, 2025 Visit Care Team Team Status: Inactive Member Role/Relationship Status Dates Diaz Dalton MD Primary Care Provider Active S tart: May 15, 2025 End: May 15, 2025Arsalan Curran ProviderActiveStart: May 15, 2025 End: May 15, 2025 Visit Care Team Team Status: Inactive Member Role/Relationship Status Dates Diaz Dalton MD Primary Care Provider Active S tart: June 05, 2025 End: June 05, 2025[facility] ProviderActiveStart: June 05, 2025 End: June 05, 2025 Visit Care Team Team Status: Inactive Member Role/Relationship Status Dates Diaz Dalton MD Primary Care Provider Active S tart: June 12, 2025 End: June 12, 2025Arsalan Curran ProviderActiveStart: June 12, 2025 End: June 12, 2025 Visit Care Team Team Status: Active Member Role/Relationship Status Dates Diaz Dalton MD Primary Care Provider Active S tart: July 02, 2025 Arsalan Rutherford ProviderActiveStart: July 02, 2025 Patient Care Team Team Status: Inactive Member Role/Relationship Status Dates Diaz Dalton MD Primary Care Provider Active S tart: July 24, 2025 End: July 24, 2025Arsalan Rutherford ProviderActiveStart: July 24, 2025 End: July 24, 2025 Chief Complaint and Reason for Visit Chief Complaint Admit Date Cataract May 01, 2025 10 :13am Cataract May 15, 2025 8:06am Established Patient June 05, 2025 10 :48am Cataract June 12, 2025 8: 06am Depressed July 24, 2025 9:19am Reason for Visit Admit Date Benign essential [...] current use of June 05, 2025 10:48am Allergies, Adverse Reactions, Alerts Allergen Type Severity Reaction Last Updated Verified Status clindamycin Allergy Unknown rash July 10:36am Yes Active sulfamethoxazole Allergy Unknown Rash July 24, 2025 10:36am Yes Active trimethoprim Allergy Unknown Rash July 10:36am Yes Active Social History Smoking Status Status Start Date End Date Date of Observa tion Never smoked tobacco (finding) June 12, 2025 9:09am Observation Status Observation Response Date of Response Legal Sex [facility] (finding) [facility] Family History Relationship Condition Age at Onset Recorded Date/T mame father Malignant neoplasm Unknown DeceasedUnknownmotherDiabetes mellitusUnknownHypertensionUnknown Problems Active Problems Problem Diagnosis/Recorded Date Onset Date Stat us Right carpal tunnel syndrome June 04, 2025 9:42am Unknown Active Equinus deformity of left foot June 04, 2025 9:39a m Unknown Active Class 3 severe obesity due t o excess calories with serious comorbidity and body mass index (BMI) of 40.0 to 44.9 in adult June 04, 2025 9:38am Unknown Active Lesion of skin of nose June 05, 2025 11:33am Unkno wn Active Chronic heart failure with p reserved ejection fraction (HFpEF) June 04, 2025 9:37am Unknown Active Obstructive sleep apnea syndrome June 04, 2025 9:4 1am Unknown Active JOHN (generalized anxiety disorder) June 04, 2025 9 :39am Unknown Active Panic disorder without agoraphobia June 04, 2025 9 :42am Unknown Active Migraine without aura and wi thout status migrainosus, not intractable June 04, 2025 9:40am Unknown Active Moderate persistent asthma w ithout complication June 04, 2025 9:41am Unknown Active Contracture, unspecified ankle June 04, 2025 9:38a m Unknown Active Overactive bladder June 04, 2025 9:42am Unknown Active Mild developmental delay June 04, 2025 9:40am Unkn own Active Benign essential hypertension June 04, 2025 9:37am Unknown Active Dyslipidemia June 04, 2025 9:38am Unknown Act manuel Pulmonary hypertension June 04, 2025 9:42am Unknow n Active Internal derangement of left shoulder June 04 9:40am Unknown Active Genital warts June 04, 2025 9:39am Unknown Ac tive Osteoarthritis of knee June 04, 2025 9:41am Unknow n Active 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 June 04, 2025 9:44am Unknown Active Type 2 diabetes mellitus wit h microalbuminuria, with long-term current use of insulin June 04, 2025 9:43am Unknown Active Type 2 diabetes mellitus wit h hyperglycemia, with long-term current use of insulin June 04, 2025 9:43am Unknown Active 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 June 04, 2025 9:41am Unknown Active Irritable bowel syndrome with diarrhea June 04 9:40am Unknown Active Spondylosis without myelopathy June 04, 2025 9:43a m Unknown Active Gastroesophageal reflux disease June 04, 2025 9:39 am Unknown Active Allergic rhinitis due to allergen June 04, 2025 9: 37am Unknown Active Hot flashes due to menopause June 04, 2025 9:39am Unknown Active Obesity hypoventilation syndrome June 04, 2025 9:4 1am Unknown Active Dehydration June 04, 2025 9:38am Unknown Act manuel Medications Medication Status Dose Units Route Directions Qty Days Refills S tart Date Stop Date End Date Reason(s) Instructions Adherence Insulin Glargine (Lantus U-1 00 Insulin) 100 unit/mL solution Active 20 UNIT SUBCUT Twice daily 10 5Oct2024 9:27amDMUnknownBlood-Glucose,Cherry Pitter,Cont (Freestyle Crystal 3 [place]) miscActive0.Jooms47Wgzlwbb2024 11:00pmAs directedInsulin Glargine (Lantus Solostar U-100 Insulin) 100 unit/mL (3 mL) insulin oguCzvfmw56JLFSGFMMJO Twice tivji007Zmvxfzf 15th, 2025 11:00pmUnknownPioglitazone 45 mg ubvtdlNxhzqc62 MGPOEvery gqllkit520NzekeovJune 25, 2025 2:02pmUnknownDulaglutide 3 mg/0.5 mL pen fyiaypmyKahfgn0VQXUOTACuzyat zjfq41Szavdfb2024 1:30pmUnknownCitalopram 40 mg qcowroQxxkww43EFBHZmdog qbyboqt368LgzztqqkJuly 22, 2025 11:55amUnknown Pantoprazole (Protonix) 40 mg tablet,delayed release (DR/EC)Dmfnqs45OHNCMiftb wowuwop498LqrdaofrJuly 22, 2025 11:56amGERDUnknownInsulin Glargine (Lantus U-100 Insulin) 100 unit/mL FjpkvdtjQwucrarrnxye74INILKZDQGVGddmv dailyAugust 2017 11:00pmOct2024 10:51amDMTrazodone 50 mg FekvnbHfocdn853SWZGIudoq at bedtime as needed for SleepAugust 2017 11:00pmUnknownClonazepam (Klonopin) 1 mg SrfgerPghmln3JZHNKglggem as needed for AnxietyAugust 2017 11:00pmUnknownInsulin Glargine (Lantus U-100 Insulin) 100 unit/mL solution Pkyulrtvuuer80BEWFXDSJIOBnbpm dailyOctober 2024 10:43amOctober 2024 9:29amDMAlbuterol Sulfate 90 mcg/actuation HFA aerosol veceykjVnsxzi4OQCO INHALATIONEVERY 4-6 HOURS as needed for shortness of breath or wheezingAugust 2024 11:00pmUnknownBupropion Hcl 300 mg tablet extended release 24 hr Xrlqec558ISVPTotkh as needed for depressionAugust 2024 11:00pmUnknown Empagliflozin (Jardiance) 25 mg jianjqQdhorz75DVASNjrfj morningAugust 2024 11:00pmUnknownDulaglutide (Trulicity) 0.75 mg/0.5 mL pen injectorDiscontinued 0.75MGSUBCUTOnce a weekAugust 2024 11:00pmOctober 2024 10:40am Cholecalciferol (Vitamin D3) 50 mcg (2,000 unit) jejoikRdtjekvhedrx79XHILCLqtqr morningAugust 2024 11:00pmOctober 2024 10:51amCitalopram 40 mg tablet Matumqwwhpyy16FHAGYmaff morningAugust 2024 11:00pmNovember 2024 11:57amFurosemide 40 mg ngkfzsPpkwnz23AYXEWsbcq morningAugust 2024 11:00pm BsmwiunWxyzdotbdgu-Yncirhjys-Ghwwotvq (Trelegy Ellipta) 200-62.5-25 mcg blister with nslxrwZrmwcq5ZMEEHYFVPBBASJqcpi morningAugust 2024 11:00pmUnknown Insulin Aspart U-100 100 unit/mL (3 mL) insulin owxVswzpvwnsjkw4trkwxub scale tvdvUQJURY1t/Day before mealsAugust 2024 11:00pmOctober 2024 10:51am Lisinopril 2.5 mg tabletActive2.5MGPOEvery morningAuunm cancer center2024 11:00pm UnknownOfloxacin 0.3 % zkdcuPjpakr4ULBQKPCG-IMVTLiyg times dailyAuunm cancer center2024 11:00pmUnknownPioglitazone 45 mg clpuknPzkjwaqusxdr29IZWFOgaqn April 30, 2025 11:00pmOct2024 2:02pmCholecalciferol (Vitamin D3) 50 mcg (2,000 unit) kwutqtVflnml254GKKRSKisog morningOct2024 10:39am UnknownInsulin Aspart U-100 100 unit/mL (3 mL) insulin osnFwoszd9suohoec scale akfzYMJGKP2q/Day before mealsOct2024 10:42am30 TO 40 UNITS DAILY UnknownLamotrigine 200 mg peqlydSbkxkz096HTGGUitim at bedtimeOct2017 11:00pmunknown reasonUnknownAtorvastatin 40 mg hxlsxtHxbouz05ACEJUrkqy June 10, 2018 11:00pmhyperlipidemiaUnknownPantoprazole (Protonix) 40 mg Tablet,Delayed Release (Dr/Ec)Cnfnbzwuuqtu70GUGIApgnz morningOct2017 11:00pmNov2024 11:57amGERDSertraline (Zoloft) 100 mg Tablet Fuqtuejhiczv219LYROUqwtl morningOct2017 11:00pmOctbluegrass community hospital 2024 10:44amdepressionLisinopril 5 mg nhexykOhwfgxjijibh8YGLTPzgpf morningOctober 2017 11:00pmAuunm cancer centert 2024 9:36amHTNAripiprazole (Abilify) 5 mg tablet Kgbwcu9SOXECrupi412Kolxtfmn 20th, 2025 12:00amComplies with drug therapy Dulaglutide (Trulicity) 1.5 mg/0.5 mL pen injectorDiscontinued1.5MGSUBCUTevery weekSept2024 11:00pmOctober 2024 1:30pmOxybutynin Chloride 15 mg tablet extended release 25klSzvzlc35PERNHhieyKsxcczcfc 30th, 2025 11:00pm UnknownSumatriptan Succinate 25 mg mdzmqpSyqits9VD.COMPLEXSeptember 2024 11:00pmtake 1 tab at onset of headache; if no relief may repeat 1 tab after at least 2 hrs; max = 4 tabs/24 hr POUnknownTrazodone 150 mg wymvxeBdhwug047EOGF DailySept2024 11:00pmUnknownMetoprolol Tartrate 50 mg sdlxywMmkvlj76 MGPODailySept2024 11:00pmUnknownBlack Cohosh Root Extract 40 mg oqkxsrsLrcuyf19UGFKMqfzrPpmyopkyx 30th, 2025 11:00pmUnknownLorazepam 1 mg tablet Efjlwm5OUHGFmnjg times daily as needed for anxietySept2024 11:00pm UnknownOndansetron 4 mg tablet,aoijubgkvsjdxoZtshlv9GGFNYfinq 6 hours as needed for nausea and vomitingSept2024 11:00pmUnknownNabumetone 500 mg fixuehFklfcp735WTELPsiej daily as neededSept2024 11:00pmUnknown Blood-Glucose Sensor deviceActive0.ROUTESept2024 11:00pmAs directed, freestyle crystal 3 sensors Medical Equipment Device Date Implanted Device Details Posterior-chamber intraocula r lens, pseudophakic May 15, 2025 ANDREW: [id number] Procedures Procedure Date Performed Status OR Cataract PHACO W/IOL/Vitrectomy (Right) Septe mber 2024 9:10am completed OR Cataract PHACO W/IOL/Vitrectomy (Left) Octobe r 2024 9:00am completed Relevant Diagnostic Tests and/or Laboratory Data Laboratory Results Test Collection Date/Time Result Date/Time Result Interpretation Reference Range Result Comment Performing Site Anion Gap June 05, 2025 7:59am June 05, 2025 7:59 am 7.9 Estimated Average GlucoseOct2024 11:00amOctober 2024 11:95um204 mg/dLBUN/Creatinine RatioJune 05, 2025 7:59amOct2024 7:59am26.6 Hemoglobin Y7rKwsxovw2024 11:00amOct2024 11:00am9.9 %Above high normal4.5-6.2ADA RECOMMENDED LIMIT 4.0 - 6.0ADA THERAPEUTIC TARGET < 7.0ACTION SUGGESTED> 7.0Blood Urea NitrogenOctober 2024 7:59amOctober 2024 7:59am25.0 mg/dLAbove high normal7.0-18.0Calcium LevelOctober 2024 7:59amOctober 2024 7:59am9.0 mg/dL8.5-10.1Chloride LevelOctober 2024 7:59amOctober 2024 7:59am98 mmol/M89-587Vpfbbg Dioxide LevelOctober 2024 7:59amOctober 2024 7:59am30.6 mmol/L21.0-32.0CreatinineOct2024 7:59amOctober 2024 7:59am0.94 mg/dL0.55-1.02Estimated GFR ()June 05, 2025 7:59amOctober 2024 7:59am>60>=60 mL/min/1.73m 2 Estimated GFR (Non- AmericanOct2024 7:59amOctober 2024 7:59am>60>=60 mL/min/1.73m 2Glucose LevelOct2024 7:59amOctober 2024 7:28rj751 mg/dLAbove high elxvji26-729Dkexmhpht LevelOct2024 7:59amOctober 2024 7:59am4.5 mmol/L3.5-5.1Sodium LevelOct2024 7:59amOctober 2024 7:01rd652 mmol/LBelow low twabvp708-566Ddaqiek Glucose May 15, 2025 8:33amSept2024 8:39am99 mg/dLRandom Glucose Reference Range is dependent on time and content of last meal. Glucose of more than 200 mg/dL in a nonstressed, ambulatory subject supports the diagnosis of Diabetes Mellitus.Point of Care testingBedside GlucoseOct2024 8:15am June 12, 2025 8:11bk649 mg/dLRandom Glucose Reference Range is dependent on time and content of last meal. Glucose of more than 200 mg/dL in a nonstressed, ambulatory subject supports the diagnosis of Diabetes Mellitus.Point of Care testingBedside Glucose CommentSeptember 2024 8:33amSeptember 2024 8:08ywIjs7: cleaned meterPoint of Care testingBedside Glucose CommentOctober 2024 8:15amOctober 2024 8:92ndYcx9: cleaned meterPoint of Care testing Vital Signs Vital Reading Result Reference Range Collection Date/Time Height 61 [in_i] May 15, 2025 8:96osYvtezu53.50 kgSeptember 2024 8:08amBody Kjfzgkmegvs77.5 [degF]97.6-99.0Sept2024 8:08amHeart Rate71 /min 60-100Sept2024 9:48amRespiratory rate16 /jvq98-45Xsnegbucv 11th, 2025 9:48amOxygen saturation by Pulse knzogsqh711 %95-100Sept2024 9:48amBP Bizsebvd436 mm[Hg]100-140Sept2024 9:48amBP Arcsmlgbo39 mm[Hg]60-100September 2024 9:40miXbeosj38 [in_i]June 05, 2025 10:17am Imuyek07.97 kgOctober 2024 10:17amBody Idbuirvjzfj41.1 [degF]97.6-99.0 June 05, 2025 10:17amHeart Rate96 /jiq75-415Vtkzqqo 2nd, 2025 10:17am Respiratory rate20 /cph47-48Gmdsdpj 2nd, 2025 10:17amOxygen saturation by Pulse gtachnmi37 %95-100October 2024 10:17amBP Dgeyrgyr486 mm[Hg]100-140Oct2024 10:17amBP Mqlhgbght01 mm[Hg]60-100Oct2024 10:17amBMI (Body Mass Index)40.8 kg/n6Aqygbzi2024 10:34xvQqbght09 [in_i]June 12, 2025 7:78rmSlbtkm57.44 kgOctober 2024 7:53amBody Ghdvansuptt67.2 [degF]97.6-99.0 June 12, 2025 9:39amHeart Rate78 /gjr79-888Gvwaaid 2024 10:05am Respiratory rate18 /uke95-66Pjqytpy 2024 10:05amOxygen saturation by Pulse scnmnsaf34 %95-100Octblue[facility] 2024 10:05amBP Bjoamxxs077 mm[Hg]100-140Octbluegrass community hospital 2024 10:05amBP Neyywxutf86 mm[Hg]60-100Octbluegrass community hospital 2024 10:94xzUobzes88 [in_i]July 24, 2025 10:40rkZtdynr908.96 kgJuly 24, 2025 10:35amBody Cjwqqdepdrh22.1 [degF]97.6-99.0July 24, 2025 10:35amHeart Rate83 /min 60-100July 24, 2025 10:35amRespiratory rate22 /ukg11-53WthagvcpJuly 24, 2025 10:35amOxygen saturation by Pulse rerhrokg57 %95-100July 24, 2025 10:35am BP Yrxhbuur291 mm[Hg]100-140July 24, 2025 10:35amBP Xiwiqoldz75 mm[Hg] 60-100July 24, 2025 10:35amBMI (Body Mass Index)42.9 kg/l7JclshbqxJuly 24, 2025 10:35am Advance Directives Advance Directive Response Recorded Date/ Time Advance Directives No March 22 6:25am Insurance Providers Guarantor Carissa Miller Address [address] [address]Gzrpgah Info.Home Phone: Coverage Status Update:2025 Payer Group Member ID Coverage Type Subscriber Relationship to Subscriber Effective Date Expiration Date Medicaid [id number] R Taylor Id: [id number] [address] [address] Home Phone: Email: paty 18elf Encounters Encounter Location(s) Arrival/Admit Date Discharge/Departure Date Discharge/Departure Disposition Provider(s) Departed Referred -Pre-Surgica l Testing May 01, 2025 10:13am May 01, 2025 10:14am Discharged to home care or self care (routine discharge) Randall [facility] May 15, 2025 8:06am May 15, 2025 11:01am Discharged to home care or self care (routine discharge) Randall Soria MD Departed Physician/ Provider Office Visit -[facility] June 05, 2025 10:48am June 05, 2025 11:59am Discharged to home care or self care (routine discharge) Diaz Dalton MD Departed Surgical [facility] June 12, 2025 8:06am June 12, 2025 11:10am Discharged to home care or self care (routine discharge) Randall Soria MD Non-patient / Non-visit -[facility] O ctober 2024 12:00pm MAISHA Rutherfordeparted Physician/Provider Office Visit-[facility] 2024 9:19amNoveer 2024 11:03amDischarged to home care or self care (routine discharge)Diaz Dalton MD Recent Diagnosis Onset Date Admit Date Benign essential hypertension Unknown Oc tober 2024 10:48am Chronic heart failure with p reserved ejection fraction (HFpEF) Unknown June 05, 2025 10:48am Class 3 severe obesity due t o excess calories with serious comorbidity and Unknown June 05, 2025 10:48am JOHN (generalized anxiety disorder) Unknown June 05, 2025 10:48am Lesion of skin of nose Unknown June 052024 10:48am 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 HospitalAuthoredOctober 2024 11:35amBP controlled and monitor PRN. No edema and continue medication. Weight loss indicated. Mild symptoms but stable and continue medication. Mild symptoms but stable and continue medication. Reports BS improved and continue medication. Stick to ADA diet and limit carbs. Painful lesion possibly abscess or cyst under skin. Refer to ENT. Future Tests Future scheduled test information is unavailable Pending Tests Pending diagnostic test information is unavailable Future Visits Future appointment information is unavailable Future Procedures Procedure Name Ordered Date Scheduled Date Post Anesthesia Tracer order May 15 8:10am May 15, 2025 8:15am Discharge Order May 15, 2025 8:42am Sept ember 2024 8:42am Post Anesthesia Tracer order June 12, 2025 8 :18am June 12, 2025 8:30am Discharge Order June 12, 2025 9:21am June 12, 2025 9:21am Future Medications Future medication information is unavailable Patient Instructions Instruction Admit Date Know your Meds May 15, 2025 8:06am Know your Meds June 12, 2025 8: 06am Goals Acute Goals Author Authored Date Experience reduced anxiety * Identifies current stressors * Develops effective coping behaviors * Uses support services as appropriateBrown [facility] Hospitaleptember 2024 10:02amRemain free of complications [facility] 10:02amUnderstand preop/postop care/sensations * Verbalizes understanding of surgical procedure * Verbalizes understanding of sensations following surgery * Verbalizes understanding of post-op treatment planBrown Memorial Hospitaleptencompass [facility] 2024 10:02amReport pain at tolerable level * Uses pain scale appropriately * Identify options for pain control - Analgesics - Narcotics - Non-medication measuresBrown Memorial Hospitaleptencompass [facility] 2024 10:02amAbsence of imbalanced fluid volume s/s [facility] 20[facility] 10:02amAbsence of physical injury [facility] 2024 10:02amAbsence of surgical site infection [facility] 2024 10:02amExperience reduced anxiety * Identifies current stressors * Develops effective coping behaviors * Uses support services as appropriateOhio[facility] CenterOct[facility] 2024 1:58pmRemain free of complications [facility] CenterOct[facility] 2024 1:58pmUnderstand preop/postop care/sensations * Verbalizes understanding of surgical procedure * Verbalizes understanding of sensations following surgery * Verbalizes understanding of post-op treatment planA[facility] 20[facility] 1:58pmReport pain at tolerable level * Uses pain scale appropriately * Identify options for pain control - Analgesics - Narcotics - Non-medication measuresOhiohealth Nelsonville Health CenterOctblue[facility] hospital 2024 1:58pmAbsence of imbalanced fluid volume s/s [facility] CenterOct[facility] 2024 1:58pmAbsence of physical injury [facility] CenterOct[facility] 2024 1:58pmAbsence of surgical site infection [facility] CenterOct[facility] 2024 1:58pm
--- NOTE | 2025-08-06 12:37 | MM_ITS ---
Patient Name: YAMILA LOZADA MR#: [id number] : 1980 Exam Date: 08/06/2025 Ordering Doctor: DR ERIK BURR . RADIOLOGY REPORT PROCEDURE: MM TOMOSYNTHESIS SCREENING BI COMPARISON: MM TOMOSYNTHESIS SCREENING BI, 06/28/2024. MM TOMOSYNTHESIS SCREENING BI, 06/26/2023. MG MAMM SCREEN 3D DINAH CAD, 06/22/2022. MG MAMM DINAH DIAG W CAD, 02/02/2016. INDICATIONS: screening Calculator Name NCI Breast Cancer Risk Assessment Tool 5 Year Breast Cancer Risk 0.90% Lifetime Breast Cancer Risk 9.60% Personal Breast Cancer No Personal Ovarian Cancer No Treatments None Family Cancers None LOCATION: [facility] BREAST COMPOSITION: There are scattered areas of fibroglandular density. FINDINGS: RIGHT BREAST: No significant suspicious finding. LEFT BREAST: No significant suspicious finding. Benign-appearing calcifications are present. DIAGNOSTIC CATEGORY 2--BENIGN FINDING. NO CHANGE FROM COMPARISON. RECOMMENDATIONS: ROUTINE MAMMOGRAM AND CLINICAL EVALUATION IN 12 MONTHS. Dictated by: Lan Valdez MD on 08/06/2025 at 15:50 Approved by: Lan Valdez MD on 08/06/2025 at 15:57
--- OUTSIDE RECORDS SUMMARY | 2025-08-06 12:45 | XMS_ITS | Patient Health Record ---
Author Organization [facility] [place] Address [address] [place] [address] Care Team Providers Care Aging Room Hand Name Role Phone Diaz Dalton MD Primary [...] ONLY [address] [place], [place] [id number] [phone] Enid Miller - patient is the insured [...] Surgical History Surgery Date(Month/Year) genital wart removal Ugjwj4515Ddhsmuoxeo Nreebbjoxrg4184HuixwrstjrvblmkEtdadatdvahcfwi History Reason Date(Month/Year) bilateral pneumonia
--- OUTSIDE RECORDS SUMMARY | 2025-08-06 12:46 | XMS_ITS | Clinical Summary ---
Author Organization [employer] [facility] tem Address [id number] [address] [place] [address] Care Team Providers Care Boat Deckhand Name Role Phone Diaz Dalton MD Primary Care Provider [phone] Allergies Active AllergyReactionsCriticalityNoted DateComments Sulfamethoxazole-TrimethoprimHives,Itching,Other (See Comments)Vxkwjq7912/13/2011 Medications MedicationSigDispense QuantityRefillsLast FilledStart DateEnd DateStatus atorvastatin [...] total) by mouth daily. 90 tablet ctive Additional Information Patient taking differently: 40 mgoral Daily, Reported on 07/07/2025 clonazePAM (KlonoPIN) 1 mg tablet Take 1 [...] by mouth in the morning. 90 tablet 302/03/2025Active Additional Information Patient taking differently: 25 mgoral Daily, Morning, Reported on 07/07/2025 tirzepatide (MOUNJARO) 5 mg/0.5 mL pen injector Indications:Type 2 diabetes mellitus with hyperglycemia, with long-term current use of insulin ([facility])Inject 5 mg under the skin every 7 days. 6 mL 5Active Additional Information Patient not taking.Reason: Other, Reported on 07/07/2025 ondansetron ODT (ZOFRAN ODT) 4 mg disintegrating tablet Dissolve 1 tablet (4 mg total) on tongue every 8 (eight) hours as needed for nausea for up to 10 doses. 10 tablet 5Active TRELEGY ELLIPTA 200-62.5-25 mcg blister with device Inhale 1 puff in the morning. 60 each 5Active albuterol (PROVENTIL,VENTOLIN) 2.5 mg /3 mL (0.083 %) nebulizer solution Indications:Moderate persistent asthma without complicationInhale 3 mL (2.5 mg total) by nebulization 4 (four) times a day as needed for wheezing. 75 mL 1205Active TRULICITY 0.75 mg/0.5 mL pen injector INJECT 0.75 MG SUBCUTANEOUSLY ONCE AQMQCP485Active Active Problems ProblemNoted DateDiagnosed DateHTN (hypertension)5Chronic heart failure with preserved ejection ooefhxsz03/03/2025COPD (chronic obstructive pulmonary disease)4BMI 40.0-44.9, adult4Pulmonary fryqjntsyeso59/17/2024 Moderate persistent asthma without fjkjqniirkdn62/17/2024Chronic hypoxic respiratory lvwgmim7002/19/2024ulmonary rnjanv5602/08/2024yspnea on exertion 02/08/2024cute cystitis without trgytefmg28/18/2024Mediastinal lymphadenopathy 11/09/2023Hyperlipidemia associated with type 2 diabetes /09/2023 Abnormal ECG during exercise stress test07/13/2023hest wall pain06/04/2023 Gastroesophageal reflux zjurhnw0604/06/2023Mild developmental delay09/29/2021 Acmvdlanrtecf16/28/4225Qfcnv79/30/1582Tcoacvitfcbu67/19/2010Type 2 diabetes mellitus with hyperglycemia, with long-term current use of zujcibh4009/30/2009 Obstructive sleep apnea smwnhdho13/27/2010 Resolved Problems ProblemNoted DateDiagnosed DateResolved DateCOPD wjnqcddhyjnj51/17/2024 10/07/2024Severe obesity (BMI >= 40)Unstable angina pectoris Encounters DateTypeDepartmentCare LhnoNkibpwvryqp93/17/2025Refill [facility] - [facility] [address] [place] [address] Eddie Zurita, FOUNDRY WORKER-CORPORATE LAW SPECIALIST 07/21/2025Refill [facility] [address] [place] [address] Eddie Zurita, FOUNDRY WORKER-CORPORATE LAW SPECIALIST 07/21/2025Refill [facility] [address] [place] [address] Eddie Zurita, FOUNDRY WORKER-CORPORATE LAW SPECIALIST 07/07/2025 9:30 AM ESTOffice Visit [facility] [address] [place] [phone] Adriane Woods, FOUNDRY WORKER-CORPORATE LAW SPECIALIST Chasidy Lai PA-C Pure hypercholesterolemia (Primary Dx); Chronic heart failure with preserved ejection fraction ([facility])07/07/2025Travel 07/04/2025Telephone [facility] [address] [place] [phone] Bethanie Ro MA 06/09/2025Telephone [facility] [address] [place] [phone] Maria C Bailey RN Surgical Or Dental Mapdguhwo00/06/2025Orders Only [facility] [address] [place] [phone] External, Scanning Provider 05/14/2025 12:00 PM EDTOffice Visit [facility] [address] [place] [phone] Suzette Madrigal, FOUNDRY WORKER-CORPORATE LAW SPECIALIST Obstructive sleep apnea syndrome (Primary Dx); Dyspnea on exertion; Moderate persistent asthma without complication; Chronic hypoxic respiratory failure ([facility]); BMI 40.0-44.9, adult ([facility]); Obesity, morbid, BMI 40.0-49.9 ([facility])05/14/2025Telephone [facility] [address] [place] [phone] Silvia Otero RMA 05/14/20257695Omniev94/03/2025Results Follow-Up [facility] [address] [place] [address] Shania Lopez MD Home O2 evaluationfrom Last 3 Months Immunizations ImmunizationAdministration DatesNext SrcSzri4804/09/2021 Family History Medical HistoryRelationNameCommentsCancerFatherDiabetesMotherHeart attackMother Anesthesia problemsNeg HxRelationNameStatusCommentsFatherDeceasedMotherAlive Social History Tobacco UseTypesPacks/DayYears UsedDateSmoking Tobacco: NeverSmokeless Tobacco: NeverAlcohol UseStandard Drinks/WeekCommentsNot Currently0 (1 standard drink = 0.6 oz pure alcohol)[facility] UtilitiesAnswerDate RecordedIn the past 12 months has the [employer], [employer], or water [employer] threatened to shut off services in your home?No07/21/2024Social Connection and Isolation PanelAnswerDate RecordedIn a typical week, how many times do you talk on the phone with family, friends, or neighbors?More than three times a week12/20/2023How often do you get together with friends or relatives?More than three times a week12/20/2023How often do you attend voodoo or restorationist services?Never12/20/2023o you belong to any clubs or organizations such as voodoo groups, unions, fraternal or athletic groups, or school groups?No12/20/2023How often do you attend meetings of the clubs or organizations you belong to?Never12/20/2023re you , , , , never , or living with a partner?Pirwlrd4912/20/2023UDIT-C AnswerDate RecordedQ1: How often do you have [...] and heating?Not hard at all12/20/2023 PHQ-2AnswerDate RecordedTotal Cjdbq825[facility] [place] of Occupational Health - Occupational Stress QuestionnaireAnswerDate RecordedDo you feel stress - tense, restless, nervous, or anxious, or unable to sleep at night because your mind is troubled all the time - these days?Only a jdstas6412/20/2023Exercise Vital SignAnswerDate RecordedOn average, how many days [...] part of a household?No07/21/2024hildcareAnswerDate RecordedDo problems getting child care supervisor make it difficult for you to work or study?No12/20/2023 EmploymentAnswerDate RecordedDo you need help finding a local career center and/or a training program?No12/20/2023Hunger ScreeningAnswerDate RecordedWithin the past 12 months we worried whether our food would run out before we got money to buy more.Never True07/07/2025Within the past 12 months the food we bought just didn't last and we didn't have money to get more.Never True07/07/2025 Purpose - LifeAnswerDate RecordedI have a purpose and direction in my life. Strongly Agree12/20/2023CommentsNoSex and Gender InformationValueDate RecordedSex Assigned at BirthNot on fileLegal VrvYauuno35/06/2015 11:24 AM EDT Gender IdentityNot on fileSexual OrientationNot on file Last Filed Vital Signs Vital SignReadingTime TakenCommentsBlood Gzsqzfoq318/7807/07/2025 9:21 AM EST Pzeqs370607/07/2025 9:21 AM SXKBvanzuedrls85.9 ??C (98.4 ??F)10/27/2024 3:00 PM ESTRespiratory Mnga729010/27/2024 6:57 PM ESTOxygen Tmupvaicgp966%05/14/2025 11:54 AM EDTArrived on 3Lnc of J4Dngdcxj Oxygen Concentration--Yipjss592.6 kg (224 lb) 07/07/2025 9:21 AM FORBennda960.9 cm (5' 1 )07/07/2025 9:21 AM ESTBody Mass Index42.32109/06/2024 9:21 AM EST Plan of Treatment Health MaintenanceDue DateLast DoneCommentsDiabetic Ophthalmology Exam1979 Statin Use: Morsvhjy1979Adult BMI Follow Up Plan1997Diabetic Foot Exam1997Depression Audxwmszn46/OVID-19 Vaccine ( season), 06/09/2021Influenza Llvxfst9705/05/2025 06/15/2020, 05/20/2019, 04/22/2017, Additional history existsTobacco Screening /dult BMI Ovdcbaycl20Pap Smear08/06/2027 08/06/2024, 08/01/2023, 07/14/20227783Rbltokdcwtq70, 09/12/2024, 09/12/2024DTaP,Tdap and Td Vaccines (2 - Td or Tdap) Goals GoalPatient Goal TypeAssociated ProblemsRecent ProgressPatient-Stated?Author Home with self care Stacey Leger RN Note: Evaluation of progress towards goal: Patient plans to return home with self care. Medical Devices Not on file Procedures Procedure NamePriorityDate/TimeAssociated DiagnosisCommentsECG 12-LEADRoutine 06/05/2025 10:31 AM EDTHOME O2 GJMDKASEWCWrvjodu07/03/2025 3:46 PM EDT Hypoxia Dyspnea on exertion [employer] BGZFCHEOIBZTibuwrv68/09/2025 9:04 AM EST from Last 3 Months [...] Arlene Gilman RCP Authorizing ProviderResult TypeResult Wallace NAYAK CARE ORDERABLESFinal ResultPerforming OrganizationAddressCity/State/ZIP CodePhone Number MANUALLY TRANSCRIBED [...] to you in MyChart.* Authorizing ProviderResult TypeResult StatusMicdayana Szymanski DOIMG OR IMG ORDERABLESFinal Result from Last 3 Months or Most Recently Relevant to Health Maintenance Insurance Advance Directives * Full Code (Latest Code Status on File) Date ActivatedDate HejlgdjujjpGqhqotpx84/17/2024 10:40 PM07/23/2024 7:57 PM * Full Code Date ActivatedDate InactivatedComments12/20/2023 10:13 PM12/23/2023 5:45 PM * Full Code Date ActivatedDate NlajcjkepauAubotsep97/2/2023 6:38 AM06/05/2023 7:25 PM * Full Code Date ActivatedDate InactivatedComments03/02/2019 2:48 PM03/03/2019 5:59 PM Care Teams Team MemberRelationshipSpecialtyStart DateEnd Date Diaz Dalton MD [facility]10/27/24
--- OUTSIDE RECORDS SUMMARY | 2025-08-06 12:46 | XMS_ITS | Encounter Summary ---
Author Organization [facility] Address [address] [place] [address] Care Team Providers Care Skilled Nursing Professional Name Role Phone Diaz Dalton MD Primary Care Provider [phone] Reason for Visit * ReasonCommentsMed Refill Encounter Details DateTypeDepartmentCare Team (Latest Contact Info)Wjhilbbyzrb78/19/2025Refill [facility] [address] [place] [address] Romana Poole, UPHOLSTERY TRIMMER [address] [place] [address] Nausea Social History Tobacco UseTypesPacks/DayYears UsedDateSmoking Tobacco: NeverSmokeless Tobacco: NeverAlcohol UseStandard Drinks/WeekCommentsNever0 (1 standard drink = 0.6 oz pure alcohol)Caffeine: 1-2 cups/day , mountain dew occasionallyComments NoSex and Gender InformationValueDate RecordedSex Assigned at BirthNot on file Legal DqhWjjiff77/15/2023 6:38 PM EDTGender IdentityNot on fileSexual OrientationNot on filedocumented as of this encounter Plan of Treatment DateTypeDepartmunising memorial hospitalCare Team (Latest Contact Info)Lcrjprruoig22/16/2025 2:00 PM ESTOffice Visit [facility] [address] [place] [address] Feliz Benz DO [address] [place] [address] 08/20/2025 1:40 PM ESTConsult [facility] [address] [phone] Feliz Benz, [address] [place], [place] [id number] documented as of this encounter Visit Diagnoses Diagnosis Nausea Nausea alone documented in this encounter Care Teams Team MemberRelationshipSpecialtyStart DateEnd Date Diaz Dalton MD [address] [place] [address] PCP - GeneralFamily Medicine09/25/23documented as of this encounter
--- OUTSIDE RECORDS SUMMARY | 2025-08-06 12:46 | XMS_ITS | Clinical Summary ---
Author Organization [facility] Address [address] [place] [address] Care Team Providers Care Medical Physics Teacher Name Role Phone Diaz Dalton MD Primary Care Provider [phone] Allergies Active AllergyReactionsCriticalityNoted DateComments Sulfamethoxazole-TrimethoprimHives,Zqxqvkd3212/13/2011 Medications MedicationSigDispense QuantityRefillsLast FilledStart DateEnd DateStatus acyclovir [...] long-term current use of insulin ([facility])USE TO MONITOR BLOOD SUGAR DIRECTED. CHANGE SENSOR EVERY 14 DAYS. 2 each 5Active Continuous Glucose Python Web Developer (FreeStyle Crystal 3 [place]) device Indications:Type 2 diabetes mellitus with hyperglycemia, with long-term current use of insulin ([facility])1 Application continuously 1 each 5Active buPROPion XL (Wellbutrin XL) 300 MG 24 hr tablet Indications:Panic disorder without agoraphobiaTAKE 1 TABLET BY MOUTH ONCE DAILY 30 tablet 5Active insulin aspart FlexPen (NovoLOG) 100 UNIT/ML pen Indications:Type 2 diabetes mellitus with hyperglycemia, with long-term current use of insulin ([facility])INJECT SUBCUTANEOUSLY THREE TIMES A DAY PER SLIDING SCALE; *30 TO 40 UNITS DAILY* 15 mL 5Active nabumetone (Relafen) 500 MG tablet Indications:Carpal tunnel syndrome of left wristTake 1 tablet (500 mg) by mouth 2 (two) times a day as needed for moderate pain 60 tablet 5Active insulin pen needle (Droplet Pen [place]) 32G x 4 mm misc Indications:Type 2 diabetes mellitus with microalbuminuria, with long-term current use of insulin ([facility])Use as instructed 200 each 5Active lisinopril 2.5 MG tablet Indications:Chronic heart failure with preserved ejection fraction (HFpEF) ([facility]) TAKE 1 TABLET BY MOUTH DAILY 30 [...] long-term current use of insulin ([facility])Inject 20 Units under the skin in the [...] long-term current use of insulin ([facility])Test daily 1 kit 5Active ofloxacin (Ocuflox) 0.3 [...] long-term current use of insulin ([facility])Take 1 tablet (25 mg) by mouth Daily 30 tablet 505Active ibuprofen 800 MG tablet Indications:Pelvic pain in femaleTAKE 1 TABLET BY MOUTH EVERY 6 HOURS IF NEEDED FOR MILD PAIN FOR UP TO 30 DOSES 30 tablet 5Active Dulaglutide (Trulicity) 1.5 MG/0.5ML solution auto-injector Indications:Type 2 diabetes mellitus with hyperglycemia, with long-term current use of insulin ([facility])Inject 1.5 mg under the skin 1 (one) time per week 2 mL 5Active Continuous Glucose Sensor (FreeStyle Crystal 3 Sensor) misc Indications:Type 2 diabetes mellitus with hyperglycemia, with long-term current use of insulin ([facility])USE TO MONITOR BLOOD SUGAR DIRECTED. CHANGE SENSOR EVERY 14 DAYS. 1 each 5Active Misc. Devices misc Indications:Acute medial meniscus tear of left knee, initial encounter,Internal derangement of left kneeDispense: Front Wheeled walker use 90 days. Ht: 5'1 Weight: 206lb 1 Units 5Active ondansetron (Zofran) 4 MG tablet Indications:NauseaTAKE 1 TABLET BY MOUTH EVERY 6 HOURS NEEDED FOR NAUSEA & VOMITING 30 tablet 5Active ondansetron (Zofran) 4 MG tablet Indications:NauseaTAKE 1 TABLET BY MOUTH EVERY 6 HOURS NEEDED FOR NAUSEA OR VOMITING 30 tablet Discontinued Active Problems ProblemNoted DateDiagnosed DateEncounter for long-term (current) use of kdwvrlkswew40/09/6031Lvhdaoaiiwv18/24/2025 Assessment & Plan (10/28/2024 2:54 PM EST): Improved after IV fluids and monitor. Continue with increased fluid intake. Nausea & gvetsbso32/24/2025 Assessment & Plan (10/28/2024 2:54 PM EST): Use zofran PRN. Pulmonary vvllraiaegzg58/03/2024 Assessment & Plan (08/06/2024 12:07 PM EST): Continued SOB and follow with specialists. Moderate persistent asthma without kqwhirswdvkn27/17/2024Type 2 diabetes mellitus with hyperglycemia, with long-term current use of kvappfe4402/12/2024 Assessment & Plan (02/10/2025 2:01 PM EDT): [...] ADA diet and limit carbs. Obesity hypoventilation bobofcgw82/02/2024 Assessment & Plan (02/12/2024 3:23 PM EDT): Seen by pulmonology and complete testing. Follow up as scheduled. Assessment & Plan (01/04/2024 12:33 PM EDT): Recent hypoxia likely related to weight. Need to change diet and lose weight. Benign essential bcjuddprotsk04/02/2024 Assessment & Plan (02/10/2025 1:59 PM EDT): BP controlled and monitor PRN. Assessment & Plan (01/04/2024 12:34 PM EDT): BP elevated but no history of HTN. Monitor PRN. Right carpal tunnel botnphsn04/02/2024 Assessment & Plan (05/29/2024 11:15 AM EDT): [...] and continue. Genital warts04/06/2023Hot flashes due to ryazkhxsd73/03/2023Type 2 diabetes mellitus with microalbuminuria, with long-term current use of mhctdgo7004/06/2023 Assessment & Plan (05/29/2024 11:14 AM EDT): [...] and sliding scale. Internal derangement of left /03/2023Irritable bowel syndrome with hktnkkii28/03/2023 Assessment & Plan (02/12/2024 3:22 PM EDT): Occasional symptoms and use bentyl PRN. Assessment & Plan (11/02/2023 4:10 PM EST): Occasional symptoms and use bentyl PRN. Migraine without aura and without status migrainosus, not hwinatbzbsf63/03/2023 Assessment & Plan (11/02/2023 4:11 PM EST): CARPIO stable and continue medication. Use imitrex PRN. Mild episode of recurrent major depressive kuixlzfw16/03/2023 Assessment & Plan (02/10/2025 2:00 PM EDT): [...] script for rolling walker to patient. Overactive pklpnie61/03/2023Class 3 severe obesity due to excess calories with serious comorbidity and body mass index (BMI) of40.0 to 44.9 in adult11/21/2022 Assessment & Plan (02/10/2025 1:59 PM EDT): Weight loss indicated. Assessment & Plan (11/07/2024 10:47 AM EST): Weight loss indicated. Assessment & Plan (10/28/2024 2:55 PM EST): Weight loss indicated. Mild developmental delay09/29/2021Type 2 diabetes mellitus with polyneuropathy 06/10/2021pondylosis without akdwqgibxh73/03/2010 Assessment & Plan (05/13/2024 2:50 PM EDT): Increased pain and start flexeril. Vbqhjxklbafy41/19/2010Panic disorder without qsdnpznfayd32/11/2010llergic rhinitis due to frpnaybl98/28/2010GAD (generalized anxiety disorder)10/01/2009 Assessment & Plan (02/10/2025 [...] continue. Use ativan PRN. Obstructive sleep apnea /27/2010 Resolved Problems ProblemNoted DateDiagnosed DateResolved DateAcute pain of right knee05/29/2024 08/06/2024 Assessment & Plan (05/29/2024 11:14 AM EDT): Recent fall and continued pain. X-ray negative. Start PT and ice PRN. Continue relafen and flexeril. Chronic hypoxic respiratory ulfkhgv28/02/2025 Assessment & Plan (10/28/2024 2:55 PM EST): On home oxygen and follow with pulmonology. Assessment & Plan (08/06/2024 12:07 PM EST): On home oxygen and follow with pulmonology. Assessment & Plan (05/13/2024 2:49 PM EDT): On home oxygen and follow with pulmonology. Azybuju45/02/2025 Assessment & Plan (01/04/2024 12:33 PM EDT): [...] with CT surgeon. Acute pain of left lwmiengj50/arpal tunnel syndrome of left wrist/05/2024 Assessment & Plan (02/12/2024 3:21 PM EDT): Able to proceed with surgery at low risk for complications. Reports BS improved and will monitor A1C. Needs clearance from pulmonology. Other chronic pain/03/2023Missed felfxo24/3Cubital tunnel syndrome on left/03/2023 Overview (04/06/2023): Added automatically from request for surgery [id number] Acute kidney injury (DREW) with acute tubular necrosis (ATN)/03/2023 High anion gap metabolic lpduhcfg47/neumonia due to infectious ujijurfk04/KA, type 1, not at goalShoulder joint pain/03/20233702Viircgkytvzza85Fecal njluvwyrivvj98oorly controlled diabetes mavdgasm80/07/2015 08/10/2023Normal gynecologic wbdnfwirnqh10onvulsions in the xpiprsz81Mild intellectual hfukdpplek95Type 2 diabetes tygezznj35 Encounters DateTypeDepartmentCare KextUjbvpgrrtjy87/19/2025Refill [facility] [address] [place] [address] Romana Poole NP Lmfkzb1206/13/2025Telephone [facility] [address] [place] [address] Renetta Simons MA Tckqdle9606/05/2025Orders Only [facility] [address] [place] [address] Renetta Simons MA Internal derangement of left knee (Primary Dx); Acute medial meniscus tear of left knee, initial gjuwrulwc63/02/2025bstract [facility] [address] [place] [address] Sonal Mars MA 06/05/2025Telephone [facility] [address] [place] [address] Arlene Mullen LPN 06/05/2025Telephone [facility] [address] [place] [address] Jr. Leoncio Jackson, DO Wants her medications after surgery to be called in at [facility]06/05/2025Results Follow-Up [facility] [address] [place] [address] Cholo Strong PA ALL BASIC METABOLIC PANEL06/05/2025linisync Result Encounter [facility] Unsolicited Erik Benz DO 06/05/2025linisync Result Encounter [facility] Unsolicited Cholo Strong PA 06/04/2025Telephone [facility] [address] [place] [phone] Jr. Leoncio Jackson, DO About her prescription for 2 wheel mgqtyj4406/03/2025 1:30 PM EDTOffice Visit [facility] [address] [place] [phone] Cholo Strong PA Pre-op examination (Primary Dx)06/03/2025Orders Only [facility] [address] [place] [phone] Renetta Simons MA Pre-op examination (Primary Dx)06/03/2025amboo flowsheet [facility] [address] [place] [phone] Cholo Strong PA 06/03/20254445Qrbztg61/25/2025Telephone [facility] [address] [facility] [address] [place] [phone] Jr. Leoncio Jackson, DO ? cmanxtr3405/26/2025 1:20 PM EDTConsult [facility] [address] [place] [address] Erik Benz DO Pre-op examination; Pelvic pain; Genital warts; Pain of ovaryfrom Last 3 Months Immunizations ImmunizationAdministration DatesNext DueInfluenza, [...] InformationValueDate RecordedSex Assigned at BirthNot on fileLegal KvxEgbrop97/15/2023 6:38 PM EDTGender IdentityNot on fileSexual OrientationNot on file Last Filed Vital Signs Vital SignReadingTime TakenCommentsBlood Kbkbvsxy784/8209 1:26 PM EDT Ialbb1146 1:23 PM IKTKxgfwmterpe81.3 ??C (97.3 ??F)02/10/2025 1:23 PM EDTRespiratory Sasm9268 1:23 PM EDTOxygen Bdiphtgteo29%02/10/2025 1:23 PM EDTInhaled Oxygen Concentration--Yrfstn08.4 kg (206 lb)06/03/2025 1:24 PM EDT Rhrutx681.9 cm (5' 1 )06/03/2025 1:24 PM EDTBody Mass Index38.9206/03/2025 1:24 PM EDT Plan of Treatment DateTypeDepartmentCare Team (Latest Contact Info)Bthgekspnjl50/16/2025 2:00 PM ESTOffice Visit [facility] [address] [place] [address] Erik Benz DO [address] [place] [address] 08/20/2025 1:40 PM ESTConsult [facility] [address] [place] [address] Erik Benz DO [address] [place] [address] Health MaintenanceDue DateLast DoneCommentsCT Eluhchgsigzn1979FIT-DNA 1979FIT1979FOBT1979 7096Rfsqgddljumti1979COVID-19 Vaccine ( season), 06/09/2021Influenza Vaccine (#1) , 05/20/2019, 04/22/2017, Additional history existsMammogram , 06/30/2023, 06/22/2022HPV/Czddtp7707/14/2027Cervical Cancer Rfzhasrdn71/03/2027Pap Smear/11/2023, 08/01/2023, 07/14/2022 Uguizkhytmr14/09/743099/05/2025, 09/12/2024, 09/12/2024, Additional history existsColorectal Cancer Eavjlgdyf99/09/2035Pneumococcal Vaccine: Pediatrics (0 to 5 Years) and At-Risk Patients (6 to 64 Years)Aged Out12/18/2023No longer eligible based on patient's age to complete this topic Procedures Procedure NamePriorityDate/TimeAssociated DiagnosisCommentsALL BASIC METABOLIC VBTSOVwjpuur40/02/2025 8:59 AM EDT ECG 12-LEAD06/05/2025 6:56 AM EDT MHUCHTOYGRIItwruob32/09/2025 11:13 AM ESTPAP POHBUJwfvwxj76/03/2024 12:00 AM EST MM TOMOSYNTHESIS SCREENING BI06/30/2024 7:52 PM EDT from Last 3 Months or Most Recently Relevant to Health Maintenance Results * (ABNORMAL) ALL BASIC METABOLIC PANEL (06/05/2025 8:59 AM EDT)ComponentValueRef RangeTest MethodAnalysis TimePerformed AtPathologist HlpodulwyHEOOXE506(L)136 - 145 mmol/LTBHPOTASSIUM4.53.5 - 5.1 mmol/UJQNRDIPFJUC5812 - 107 mmol/LTBH CARBON XAZJGAS51.621.0 - 32.0 mmol/LTBHANION GAP7.9VGJOKFQYTL022(H)74 - 106 mg/dLTBHBLOOD UREA XFREFBKY56.0(H)7.0 - 18.0 mg/dLTBHCREATININE0.940.55 - 1.02 mg/dLTBHTBH EGFR-AF VENEZUELAN>60>=60 mL/min/1.73m 2TBHTBH EGFR-NON AF VENEZUELAN >60>=60 mL/min/1.73m 2TBHBUN CREATININE RATIO26.4UPAAJLYZXC4.08.5 - 10.1 mg/dL TBHSpecimen (Source)Anatomical Location / LateralityCollection Method / Volume Collection TimeReceived Time06/05/2025 8:59 AM EDT1 9:02 AM EDT Narrative [facility] - 06/05/2025 10:54 AM EDT Authorizing ProviderResult TypeResult StatusMattyuridia Strong PACLINISYNCFinal ResultPerforming OrganizationAddressCity/State/ZIP CodePhone Number [facility] * ECG 12-LEAD (06/05/2025 6:56 AM EDT)Anatomical RegionLateralityModalityOther Specimen (Source)Anatomical Location / LateralityCollection Method / Volume Collection TimeReceived Time06/05/2025 6:56 AM EDT Narrative 06/05/2025 11:48 AM EDT [facility] ?[address] ? [place] [address] ? Electrocardiograph Report ? Signed ? Patient: NEVILLECARISSA Cespedes ?MR#: [id number] ?? : 1980 ?Acct:[id number] ?? Age/Sex: 44 / F ?ADM Date: 06/05/25 ?? Loc: PST ? Attending Dr: Erik Benz D.O. ? Ordering Physician: Erik Benz D.O. ?? Date of Service: 06/05/25 ?? Procedure(s): ECG 12 lead ?? Accession Number(s): [id number] ? cc: ?[facility] ? Test Date: ?2025-06-05 ?? Pat Name: ? CARISSA LOZADA ?Department: ? Room: ? - ?? Gender: ? Female ? Dope Firer: ? : ?1980 ? Requested By: ERIK BENZ ?? Order Number: [id number] ?Reading MD: ?? LEONCIO ??Bret TORRES ? Measurements ?? Intervals ?[place] ? Rate: ? 85 ? P: ?62 ?? [place]: ? 151 ?QRS: ?109 ?? QRSD: ? [...] 1148 ? DD/ 0656 ? TD/TT: ? Pickle Pumper: Procedure Note Radiology, Radiologist, MD - 06/05/2025 [place] [address] Electrocardiograph Report Signed Patient: CARISSA LOZADA RMR#: [id number] : 1980Acct:[id number] Age/Sex: 44 / FADM Date: 06/05/25 Loc: [facility] Attending Dr: Erik Benz D.O. Ordering Physician: Erik Benz D.O. Date of Service: 06/05/25 Procedure(s): ECG 12 lead Accession Number(s): [id number] cc: [facility] Test Date: 2025-06-05 Pat Name: CARISSA LOZADA Department: Room: - Gender: Female Dope Firer: : 1980 Requested By: ERIK BENZ Order Number: [id number] Sangeetha MD: LEONCIO TORRES M.D. Measurements Intervals [place] Rate: 85 P: 62 [place]: 151 QRS: 109 QRSD: 89 T: 82 [...] TORRES Signed By:06/05/25 1148 DD/ 0656 TD/TT: Pickle Pumper: Authorizing ProviderResult TypeResult StatusCorey Demar DOCLINISYNC IMAGINGFinal Result * Colonoscopy (09/12/2024 11:13 AM EST)Anatomical RegionLateralityModality [...] EDT Narrative 06/30/2024 7:54 PM EDT [facility] ?[address] ? [place] [address] ? Mammography Report ? Signed ? Patient: CARISSA LOZADA ?MR#: [id number] ?? : 1980 ?Acct:[id number] ?? Age/Sex: 43 / F ?ADM Date: 10/25/24 ?? Loc: MAMMO ? Attending Dr: Erik Benz D.O. ? Ordering Physician: Erik Benz D.O. ?Results: ? Date of Service: 06/28/24 ?Follow Up: ? Procedure(s): MM tomosynthesis screening BI ?? Accession Number(s): [id number] ? cc: Erik Benz D.O.; Diaz Dalton M.D. ? Patient Name: ? CARISSA LOZADA ? MR#: [id number] ? : 1980 ? Exam Date: 06/28/2024 [...] Cancers ? None ? LOCATION: ? [facility] ? BREAST COMPOSITION: ? There are scattered [...] By: ?Kamron Gunn M.D. ? Signed By: ?06/30/244 ? DD/ 51 ? TD/TT: ? Pickle Pumper: Procedure Note Radiology, Radiologist, MD - 06/30/2024 [place] [address] Mammography Report Signed Patient: CARISSA LOZADA RMR#: [id number] : 1980Acct:[id number] Age/Sex: 43 / FADM Date: 06/28/24 Loc: MAMMO Attending Dr: Erik Benz D.O. Ordering Physician: Erik Benz D.O.Results: Date of Service: 06/28/24Follow Up: Procedure(s): MM tomosynthesis screening BI Accession Number(s): [id number] cc: Erik Benz D.O.; Diaz Dalton M.D. Patient Name: CARISSA LOZADA MR#: [id number] : 1980 Exam Date: 06/28/2024 Ordering Doctor: DR Erik Benz . RADIOLOGY REPORT PROCEDURE: MM TOMOSYNTHESIS SCREENING BI COMPARISON: MM TOMOSYNTHESIS SCREENING BI, 06/26/2023. MG MAMM XDELDW0D DINAH CAD, 06/22/2022. MG MAMM SCREEN 3D DINAH CAD, 06/21/2021. MG MAMM BILDIAG W CAD, 02/02/2016. INDICATIONS: Screening Calculator Name NCI Breast Cancer Risk Assessment Tool 5 Year Breast Cancer Risk 0.80% Lifetime Breast Cancer Risk 9.80% Personal Breast Cancer No Personal Ovarian Cancer No Treatments None Family Cancers None LOCATION: [facility] BREAST COMPOSITION: There are scattered areas of [...] Gunn M.D. Signed By:06/30/241953 DD/ 51 TD/TT: Pickle Pumper: Authorizing ProviderResult TypeResult StatusCorey Demar DOCLINISYNC IMAGINGFinal Result from Last 3 Months or Most Recently Relevant to Health Maintenance Insurance * Guarantor: Carissa Lozada TypeRelation to PatientDate of BirthPhone Billing AddressPersonal/YwdeyvKpul1980 [address] [address] Care Teams Team MemberRelationshipSpecialtyStart DateEnd Date Diaz Dalton MD [address] [place] [address] PCP - GeneralFamily Medicine09/25/23
--- OUTSIDE RECORDS SUMMARY | 2025-08-06 12:49 | XMS_ITS | CCD ---
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 Name Role Phone DIAZ DALTON Attending Unavailabl [...] DR CHERI Cespedes Attending Unavailable MYRNA, DR CHREI Cespedes Consulting Unavailable MYRNA, DR CHERI Cespedes Admitting Unavailable Sha WERNER, Diaz Primary Care Provider [phone] Sha WERNER, Diaz Primary Care Provider [phone] Paul, Gary Carlos Admitting Unavail able Paul, [...] able NADERER, DIAZ A Primary Care Unavailable [place], Gary Carlos Attending Unavail able Paul, Gary Carlos Admitting Unavail able DEREKERER, DIAZ A Primary Care Unavailable Sha WERNER, Diaz Primary Care Provider [phone] Sha WERNER, Diaz Primary Care Provider [phone] Sha WERNER, Diaz Primary Care Provider [phone] Sha WERNER, Diaz Primary Care Provider Sha WERNER, Diaz Primary Care Provider Sha WERNER, Diaz Primary Care Provider [phone] Sha WERNER, Diaz Primary Care Provider [phone] Randall Soria MD Attending Provider DIAZ DALTON [...] Care Unavailable PACHECO MADRIGAL Attending Unavailable DIAZ DATLON Referring Unavailable NADERECoy, DIAZ Primary Care Unavailable Sha WERNER, Diaz Primary Care Provider [phone] Sha WERNER, Diaz Attending Provider [phone] CARMEN BOWMAN Attending Unavailable SHA, DIAZ Attending Unavailable SHA, [...] Attending Unavailable DEREKERER, DIAZ Referring Unavailable NADERER, DIAZ Primary Care Unavailable Allergies Allergy ClassificationReported Allergen(s)Allergy TypeDate of OnsetReaction(s) Facility (20 sources)Sulfamethoxazole / Trimethoprim; Translations: [SULFAMETHOXAZOLE-TRIMETHOPRIM]Drug Bxrhzzd09-40-8987Eznejjl, Warren, Other (See Comments)[facility] ([facility])Amoxicillin / ClavulanateDrug AllergyThe [facility] (1 source)levoFLOXacinDrug Nrjwntq24-24-9312Guz [facility] (2 sources)Sulfamethoxazole / Trimethoprim; Translations: [Bactrim]Drug Allergy 65-19-9097[facility] (6 sources)Clindamycin; Translations: [clindamycin]Drug [place]zsbacp38[place] (6 sources)Sulfamethoxazole; Translations: [sulfamethoxazole]Drug Allergy 51-30-0311GzabKswuqzxkuTr[facility] (6 sources)Trimethoprim; Translations: [trimethoprim]Drug Khivguj53-22-4437XzanKeenan Private Hospital Medications Current Medications MedicationDrug Class(es)DatesSig (Normalized)Sig (Original)acetaminophen 325 mg oral tablet (2 sources)Start: 73-74-3773iofq 1 tablet by mouth every four hours as ucjuyf983 mg, oral, Every 4 hours PRN, Temperature greater than 38.3 C, Starting on Mon12/20/23 at 2211, [Warning: Total Acetaminophen not to exceed more than 4 grams (4000 mg) in 24 hours]Start: 49-22-8174nulebhxlhumqd (TYLENOL) 160 MG/5ML solution 650 mgacetaminophen 325 mg / HYDROcodone bitartrate 5 mg oral tablet (5 sources)Opioid AgonistStart: 06-14-2024 End: 61-32-9926arcp 1 tablet by mouth every six hours for painHYDROcodone- acetaminophen ([place]) 5-325 MG tablet Indications: Post-operative pain Take 1 tablet bymouth every 6 (six) hours if needed for severe pain for up to 3 days 12 tablet 06/14/2024 06/17/2024 ActiveStart: 98-03-5374fnvd 1 tablet by mouth four times daily as needed for painHYDROcodone-acetaminophen ([place]) 5-325 MG tablet Indications: Cavitary lesion of [...] 0.83 mg/ml inhalation solution (20 sources)beta2-Adrenergic AgonistStart: 70-88-0954leym 3 mL by inhalation four times daily as needed for wheezingalbuterol (PROVENTIL,VENTOLIN) 2.5 mg /3 mL (0.083 %) nebulizer solution Indications: Moderate persistent asthma without complication Inhale 3 mL (2.5 mg total) by nebulization 4 (four) times a day as needed for wheezing. 75 mL 12 05/07/2025 ActiveStart: 21-53-2726wnmc 1 puff(s) by inhalation every four to six hours as needed for wheezingAlbuterol Sulfate 90 mcg/actuation HFA aerosol inhaler Active 2 PUFF INHALATION EVERY 4-6 HOURS as n eeded for shortness of breath or wheezing May 01, 2025 12:00am Complies with drug therapyStart: 46-34-0440aqpf 2 puff(s) by mouth every four hours as needed for wheezingalbuterol HFA 90 mcg/act inhaler Indications: SOB (shortness of breath) INHALE 2 PUFFS BY MOUTH EVERY 4 HOURS NEEDED FOR WHEEZING 8.5 g 11 02/25/2025 ActiveStart: 71-12-8336pylj 2 puff(s) by inhalation every six hours as needed for wheezingalbuterol (PROVENTIL HFA;VENTOLIN HFA) 90 mcg/actuation inhaler Indications: Hypoxia Inhale 2 puffsevery 6 (six) hours as needed for wheezing or shortness of breath. 18 g 12/22/2023 ActiveStart: 08-10-2023 End: 59-65-9204yelb 2 puff(s) by mouth every four hours as needed for wheezing albuterol HFA 90 mcg/act inhaler Indications: SOB (shortness of breath) INHALE 2 PUFFS BY MOUTH EVERY 4 HOURS NEEDED FOR WHEEZING 8.5 g 10 04/16/2024 Active Start: 10-03-2021 End: 93-58-3954zakq 2 puff(s) by inhalation every six hours as needed for wheezingalbuterol sulfate HFA 108 (90 Base) MCG/ACT inhaler Inhale 2 puffs into the lungs every 6 hours as needed for Wheezing or Shortness of Breath 1 each 0 10/03/2021 11/02/2021 ActiveStart: 12-04-6177wywpfdsnv (PROVENTIL) nebulizer solution 2.5 mgalbuterol 0.833 mg/ml / ipratropium bromide 0.167 mg/ml inhalation solution (1 source)Anticholinergic, beta2-Adrenergic AgonistStart: 59-06-9223ztya 3 mL by inhalation every six hours as needed for wheezing3 mL, nebulization, Every 6 hours PRN, wheezing, Starting on Mon12/20/23 at 2219, Implement INPATIENT/ED Bronchodilator Clinical Practice Guidelines? Yes, Document: \[email or web address]\[email or web address]\EPIC_Reference\Orders\Respiratory Care Guidelines\CPG Bronchodilator 2020.pdfaluminum hydroxide 40 mg/ml / magnesium hydroxide 40 mg/ml / simethicone 4 mg/ml oral suspension (1 source)Start: 06-47-5466vvsf 30 mL by mouth four times daily at bedtime as mL, oral, 4 times daily after meals and at bedtime as needed, dyspepsia, Starting on Mon12/20/23at 2212, Look-alike/sound-alike medication - verify indication for use. Shake well., Indications: dyspepsiaatorvastatin 40 mg oral tablet (20 sources)HMG-CoA Reductase InhibitorStart: 06-11-2018 End: 57-16-4698jcbg 1 tablet by mouth once daily in the morningAtorvastatin 40 mg tablet Active 40 MG PO Every morning June 11, 2018 12:00am Complies with drug therapyBlack Cohosh Root Extract (20 sources)Start: 03-24-3575kukt 1 capsule by mouth once dailyStart: 06-04-2025 take 1 capsule by mouth once dailyBlack Cohosh Root Extract 40 mg capsule Active 40 MG PO Daily June 04, 2025 12:00am Complies with drug therapyStart: 02-73-0806vkti 1 capsule by mouth once dailyBlack Cohosh (Black Cohosh Hot Flash Relief) 40 MG capsule Indications: Hot flashes due to menopause Take 1 each by mouth Daily 30 capsule 11 11/02/2023 ActiveBlood Glucose Monitoring Suppl (True Metrix Meter) w/Device kit (20 sources)Start: 44-10-0096Cnfdo Glucose Monitoring Suppl (True Metrix Meter) w/Device kit Indications: Type 2 diabetes mellitus with hyperglycemia, with long-term current use of insulin (HCC) Test daily 1 kit 02/25/2025 ActiveBlood- Glucose Sensor device (3 sources)Start: 49-94-2615Qkbvv-Glucose Sensor device Active 0 .ROUTE June 04, 2025 12:00am As directed, freestyle crystal 3 cbthnoz44 hr buPROPion hydrochloride 300 mg extended release oral tablet (20 sources)AminoketoneStart: 12-42-2195spma 1 tablet by mouth once daily as needed for depressionBupropion Hcl 300 mg tablet extended release 24 hr Active 300 MG PO Daily as needed for depression May 01, 2025 12:00am Complies with drug therapyStart: 61-55-4413dikv 1 tablet by mouth every twenty-four hours in the morningbuPROPion XL (Wellbutrin XL) 300 MG 24 hr tablet Take 300 mg by mouth in the morning. 0 07/18/2023 ActivecefTRIAXone 1000 mg injection (2 sources)Cephalosporin AntibacterialStart: 08-37-7039domc 1000 mg intravenously every twenty-four hours1,000 mg, [...] oral capsule (2 sources)Cephalosporin AntibacterialStart: 12-22-2023 End: 10-75-5883owrx 1 capsule by mouth in the morning, then take 1 capsule by mouth at bedtimeCEPHalexin (KEFLEX) 500 mg capsule Take 1 capsule (500 mg total) by mouth in the morning and 1 capsule (500 mg total) before bedtime. Do all this for 4 days. 8 capsule 12/22/2023 12/26/2023 Activecholecalciferol 0.05 mg oral tablet (20 sources)Vitamin DStart: 13-73-8040getc 1 tablet by mouth once daily in the morningStart: 02-03-2025 End: 41-22-7876vgac 1 tablet by mouth once daily in the morningCholecalciferol (Vitamin D3) 50 mcg (2,000 unit) tablet Discontinued 50 MCG PO Every morning 2024 12:00am June 04, 2025 11:51amStart: 88-64-0104dnwl 400 [IU] by mouth once iubcn933 Units, oral, Daily, First dose on [place] 12/21/23 at 0900 Start: 10-02-2023 End: 27-65-6003fgsy 2 tablets by mouth once dailycholecalciferol (Vitamin D-3) 50 MCG (2000 UT) tablet Indications: Vitamin D deficiency Take 2 tablets (100 mcg) by mouth Daily 60 tablet 5 08/14/2024 Activetake 1 tablet by mouth in the morningcholecalciferol, vitamin D3, 400 units tablet Take 1 tablet (400 Units total) by mouth in the morning. Activeciprofloxacin 500 mg oral tablet (2 sources)Quinolone AntimicrobialStart: 07-04-2024 End: 86-94-2968xfsm 1 tablet by mouth in the morningciprofloxacin (Cipro) 500 MG tablet Indications: Urinary Tract Infection Take 1 tablet (500 mg) by mouth in the morning and 1 tablet (500 mg) before bedtime. Do all this for 7 days. 14 tablet 07/04/2024 07/11/2024 Activecitalopram 40 mg oral tablet (20 sources)Serotonin Reuptake InhibitorStart: 56-84-2748pymq 1 tablet by mouth once daily in the morningCitalopram 40 mg tablet Active 40 MG PO Every morning May 01, 2025 12:00am Complies with drug therapyStart: 03-15-2024 End: 20-41-1488hqhjzyvrkm (CeleXA) 20 mg tablet 08/13/2024 ActiveclonazePAM 1 mg oral tablet (20 sources)BenzodiazepineStart: 19-89-6305pdef 1 tablet by mouth at bedtime as needed for anxietytake 1 tablet by mouth three times daily as needed for anxiety clonazePAM (KLONOPIN) 1 MG tablet Take 1 mg by mouth 3 times daily as needed for Anxiety. 0 ActiveContinuous Glucose Options Advisor (FreeStyle Crystal 2 [place]) device (7 sources)Start: 10-25-2024 End: 86-67-3840Zywoqkccel Glucose Options Advisor (FreeStyle Crystal 2 [place]) device Indications: Type 2 diabetes mellituswith microalbuminuria, with long-term current use of insulin ([facility]) Test once daily 1 each 10/25/2024 11/07/2024 DiscontinuedStart: 33-90-5283Qirgrlekyw Glucose Options Advisor (FreeStyle Crystal 2 [place]) device Indications: Type 2 diabetes mellituswith microalbuminuria, with long-term current use of insulin ([facility]) Test once daily 1 each 10/25/2024 ActiveContinuous Glucose Options Advisor (FreeStyle Crystal 3 [place]) device (20 sources)Start: 05-69-5315Kybrfbcnym Glucose Options Advisor (FreeStyle Crystal 3 [place]) device Indications: Type 2 diabetes mellituswith hyperglycemia, with long-term current use of insulin ([facility]) 1 Application continuously 1 each ActiveStart: 11-07-2024 End: 08-65-4895Zmofhkqxvn Glucose Options Advisor (FreeStyle Crystal 3 [place]) device Indications: Type 2 diabetes mellituswith hyperglycemia, with long-term current use of insulin (CMS/HCC) 1 Application continuously 1 each 11/07/2024 11/07/2024 DiscontinuedStart: 87-51-0173Knhtlldlbq Glucose Options Advisor (FreeStyle Crystal 3 [place]) device Indications: Type 2 diabetes mellituswith hyperglycemia, with long-term current use of insulin (CMS/HCC) 1 Application continuously 1 each 11/07/2024 ActiveContinuous Glucose Sensor (FreeStyle Crystal 14 Day Sensor) misc (3 sources)Start: 85-03-7890Mwifukrslq Glucose Sensor (FreeStyle Crystal 14 Day Sensor) misc Indications: Type 2 diabetes mellitus with microalbuminuria, with long-term current use of insulin (CMS/HCC) apply 1 SENSOR to back OF UPPER ARM REMOVE AND REPLACE every 14 d... (REFER TO PRESCRIPTION NOTES). 2 each 09/23/2024 ActiveStart: 09-19-2024 End: 00-13-6740Viszdqhhen Glucose Sensor (FreeStyle Crystal 14 Day Sensor) misc Indications: Type 2 diabetes mellitus with microalbuminuria, with long-term current use of insulin (CMS/[facility]) apply 1 SENSOR to back OF UPPER ARM REMOVE AND REPLACE every 14 d... (REFER TO PRESCRIPTION NOTES). 2 each 09/19/2024 09/23/2024 Discontinued (Reorder)Start: 03-55-8262Tavtaarlhs Glucose Sensor (FreeStyle Crystal 14 Day Sensor) misc Indications: Type 2 diabetes mellitus with microalbuminuria, with long-term current use of insulin (CMS/[facility]) apply 1 SENSOR to back OF UPPER ARM REMOVE AND REPLACE every 14 d... (REFER TO PRESCRIPTION NOTES). 2 each 09/19/2024 ActiveContinuous Glucose Sensor (FreeStyle Crystal 3 Sensor) misc (20 sources)Start: 15-41-6551Tyxcqlquoy Glucose Sensor (FreeStyle Crystal 3 Sensor) misc Indications: Type 2 diabetes mellitus with hyperglycemia, with long-term current use of insulin ([facility]) USE TO MONITOR BLOOD SUGAR DIRECTED. CHANGE SENSOR EVERY 14 DAYS. 1 each 05/04/2025 ActiveStart: 04-09-2025 End: 50-52-3220Edqsadoudg Glucose Sensor (FreeStyle Crystal 3 Sensor) misc Indications: Type 2 diabetes mellitus with hyperglycemia, with long-term current use of insulin (HCC) 1 Units 1 (one) time per week 1 each 04/09/2025 05/04/2025 DiscontinuedStart: 23-15-3944Rnbagxwmeh Glucose Sensor (FreeStyle Crystal 3 Sensor) misc Indications: Type 2 diabetes mellitus with hyperglycemia, with long-term current use of insulin ([facility]) 1 Units 1 (one) time per week 1 each 04/09/2025 ActiveStart: 97-49-9139Awggmygwul Glucose Sensor (FreeStyle Crystal 3 Sensor) misc Indications: Type 2 diabetes mellitus with hyperglycemia, with long-term current use of insulin ([facility]) USE TO MONITOR BLOOD SUGAR DIRECTED. CHANGE SENSOR EVERY 14 DAYS. 2 each 11/04/2024 ActiveStart: 11-04-2024 Continuous Glucose Sensor (FreeStyle Crystal 3 Sensor) misc Indications: Type 2 diabetes mellitus with hyperglycemia, with long-term current use of insulin (CMS/[facility]) USE TO MONITOR BLOOD SUGAR DIRECTED. CHANGE SENSOR EVERY 14 DAYS. 2 each 11/04/2024 ActiveStart: 71-82-7483Lrqpdcjwpa Glucose Sensor (FreeStyle Crystal 3 Sensor) misc Indications: Type 2 diabetes mellitus with hyperglycemia, with long-term current use of insulin (CMS/HCC) 1 each every 14 (fourteen) days 2 each 10/29/2024 ActiveStart: 16-09-4378Awjhgezila Glucose Sensor (FreeStyle Crystal 3 Sensor) misc Indications: Type 2 diabetes mellitus with hyperglycemia, with long-term current use of insulin (CMS/[facility]) 1 each every 14 (fourteen) days 2 each 09/25/2024 ActiveStart: 09-23-2024 End: 06-71-4274Ojlgcfowin Glucose Sensor (FreeStyle Crystal 3 Sensor) misc Indications: Type 2 diabetes mellitus with hyperglycemia, with long-term current use of insulin (CMS/HCC) 1 each every 14 (fourteen) days 2 each 09/23/2024 09/25/2024 Discontinued (Reorder)cyclobenzaprine hydrochloride 10 mg oral tablet (20 sources)Muscle RelaxantStart: 10-70-2622rvxj 1 tablet by mouth three times daily as needed for muscle spasmscyclobenzaprine (FLEXERIL) 10 mg tablet Take 1 tablet (10 mg total) by mouth 3 (three) times a day as needed for muscle spasms. 30 tablet 06/29/2024 Activedicyclomine hydrochloride 20 mg oral tablet (20 sources)AnticholinergicStart: 89-18-4379gvjm 1 tablet by mouth four times daily as neededdicyclomine (Bentyl) 20 MG tablet Indications: Irritable bowel syndrome with diarrhea TAKE 1 TABLETBY MOUTH FOUR TIMES DAILY NEEDED 60 tablet 10 10/15/2024 ActiveStart: 54-05-0817etag 1 tablet by mouth four times daily as neededdicyclomine (Bentyl) 20 MG tablet Indications: Irritable bowel syndrome with diarrhea TAKE 1 (ONE) TABLET BY MOUTH FOUR TIMES DAILY, NEEDED 60 tablet 10 11/17/2023 ActiveStart: 49-54-6026waee 1 tablet by mouth four times daily as neededdicyclomine (Bentyl) 20 MG tablet Take 20 mg by mouth 4 (four) times a day as needed. 0 01/18/2023 Activetake 1 tablet by mouth every six hours dicyclomine (BENTYL) 20 mg tablet Take 1 tablet (20 mg total) by mouth every 6 (six) hours. Activedulaglutide (Trulicity) 4.5 MG/0.5ML solution pen-injector (3 sources)Start: 92-48-5679bvrvmi 4.5 mg by subcutaneous injection every week dulaglutide (Trulicity) 4.5 MG/0.5ML solution pen-injector Indications: Type 2 diabetes mellitus with microalbuminuria, with long-term current use of insulin ([facility]) Inject 4.5 mg under the skin 1 (one) time per week 4 each 5 10/02/2023 Activeempagliflozin 25 mg oral tablet (20 sources)Sodium-Glucose Cotransporter 2 InhibitorStart: 13-18-3037zlux 1 tablet by mouth once daily in the morningEmpagliflozin (Jardiance) 25 mg tablet Active 25 MG PO Every morning May 01, 2025 12:00am Complies with drug therapyStart: 11-07-2024 End: 24-56-2538fvsk 1 tablet by mouth once dailyempagliflozin (Jardiance) 25 MG Indications: Type 2 diabetes mellitus with hyperglycemia, with long-term current use of insulin ([facility]) Take 1 tablet (25 mg) by mouth Daily 30 tablet 5 11/07/2024 ActiveStart: 10-07-2024 End: 46-30-7969zzda 1 tablet by mouth in the morningempagliflozin (JARDIANCE) 10 mg tablet tablet Take 1 tablet (10 mg total) by mouth in the morning. 90 tablet 3 10/07/2024 Active0.4 ml enoxaparin sodium 100 mg/ml prefilled syringe (1 source)Low Molecular Weight HeparinStart: 18-05-0108issvxi 40 mg by subcutaneous injection every twelve hours40 mg, subcutaneous, Every 12 hours, First dose (after last reorder) on [facility] 12/21/23 at 0600, Look-alike/sound-alike medication - verify indication for use.fluconazole 150 mg oral tablet (20 sources)Azole AntifungalStart: 22-63-5017hata 1 tablet by mouth once fluconazole (Diflucan) 150 MG tablet Take 150 mg by mouth 1 (one) time 03/25/2024 ActiveStart: 09-29-2021 End: 26-58-1204yozsllribhd (DIFLUCAN) tablet 200 mg Ivbtfdglngy-Gvgpypdnu-Gurcwazt (5 sources)Start: 46-09-1354Wpnefehbbqf-Umeclidin-Vilanter (Trelegy Ellipta) 200-62.5-25 mcg blister with device Active 1 INH INHALATION Every morning May 01, 2025 12:00am Complies with drug therapyStart: 05-01-2025 znfhraikskr-stypdwesm-ewsklpze (TRELEGY ELLIPTA) 200-62.5-25 mcg blister with device (20 sources)Start: 60-91-7367blai 1 puff(s) by inhalation in the morning iomvmjhpxli-eswgafyqt-pyafurgd (TRELEGY ELLIPTA) 200-62.5-25 mcg blister with device Indications: Moderate persistent asthma without complication Inhale 1 puff in the morning. 60 each 11 03/21/2024 ActiveStart: 02-19-2024 End: 46-94-6893czxw 1 puff(s) by inhalation in the morning nlcbxyvigva-rxcantyci-pqbnmhhm (TRELEGY ELLIPTA) 200-62.5-25 mcg blister with device Indications: Moderate persistent asthma without complication Inhale 1 puff in the morning. 60 each 02/19/2024 03/21/2024 Discontinued (Reorder) Start: 77-66-3618krvn 1 puff(s) by inhalation in the morning hktftkafipm-ngyzgoxvi-jsmvibkb (TRELEGY ELLIPTA) 200-62.5-25 mcg blister with device Indications: Moderate persistent asthma without complication Inhale 1 puff in the morning. 60 each 02/19/2024 ActiveFREESTYLE CRYSTAL 14 DAY SENSOR kit (20 sources)Start: 57-44-9715NXFRITWHB CRYSTAL 14 DAY SENSOR kit 08/14/2024 Active Start: 23-75-0801PNRILRURL CRYSTAL 14 DAY SENSOR kit APPLY 1 SENSOR TO BACK OF UPPER ARM. REMOVE AND REPLACE EVERY 14 DAYS 08/14/2024 Activefurosemide 40 mg oral tablet (20 sources)Loop DiureticStart: 27-34-0262cvch 1 tablet by mouth once daily in the morningStart: 08-06-2024 End: 82-82-1790zjsp 1 tablet by mouth once dailyfurosemide (Lasix) 40 MG tablet Indications: Chronic heart failure with preserved ejection fraction(HFpEF) (HCC) Take 1 tablet (40 mg) by mouth Daily 30 tablet 5 11/07/2024 ActiveStart: 04-17-8178mgao 1 tablet by mouth once dailyfurosemide (LASIX) 20 mg tablet Indications: Dyspnea on exertion , Pulmonary hypertension (CMS-HCC)Take 1 tablet (20 mg total) by mouth daily. 90 tablet 3 07/18/2024 Active End: 64-56-0742wgum 1 tablet by mouth once daily as [...] 70 mg/dL after initial treatment, repeat treatment.Start: 75-63-0936riaifxmf (rDNA) injection 1 mg150 ml glucose 50 [...] repeat treatment. VESICANT (RED) Warning: HYPERTONIC solution.Start: 16-60-1902dxny 70 mg intravenously every ulbk566 mL/hr, intravenous, Continuous PRN, blood glucose less [...] 70 mg/dL after initial treatment, repeat treatment.Start: 14-90-6200ebvunrs (GLUTOSE) 40 % oral gel 15 gStart: 77-55-0942typhotoj 5 % solutionStart: 41-70-1713utvrbdsv 50 % IV jiucsent101 ml glucose 50 mg/ml / sodium chloride 4.5 mg/ml injection (1 source)Start: 10-98-4631eevovhsg 5 % and 0.45 % sodium chloride infusion1 ml heparin sodium, porcine 5000 unt/ml prefilled syringe (1 source)Unfractionated Heparin, Anti-coagulantStart: 05-90-9199awjmnli (porcine) injection 5,000 Unitshyoscyamine sulfate 0.125 mg oral tablet (1 source)hyoscyamine (ANASPAZ;LEVSIN) [address] 125 mcg under the tongue every 4 hours as needed for Cramping 0 Activeibuprofen 800 mg oral tablet (16 sources)Nonsteroidal Anti-inflammatory DrugStart: 02-58-9862ozsw 1 tablet by mouth every six hours for painibuprofen 800 MG tablet Indications: Pelvic pain in female TAKE 1 TABLET BY MOUTH EVERY 6 HOURS IF NEEDED FOR MILD PAIN FOR UP TO 30 DOSES 30 tablet 3 04/28/2025 Active End: 14-62-5385amuj 1 tablet by mouth every six hours as needed for pain ibuprofen (ADVIL;MOTRIN) 600 MG tablet Take 600 mg by mouth every 6 hours as needed for Pain 0 10/02/2021 Discontinued (Stop Taking at Discharge)3 ml insulin aspart, human 100 unt/ml pen injector (20 sources)Insulin AnalogStart: 20-24-6854lklpkr 30-40 [IU] by subcutaneous injection once daily before mealtimeStart: 05-01-2025 End: 30-26-9099axybxk 1 dose by subcutaneous injection once before mealtime Insulin Aspart U-100 100 unit/mL (3 mL) insulin pen Discontinued 1 sliding scale dose SUBCUT 3x/Daybefore meals May 01, 2025 12:00am June 04, 2025 11:51amStart: 67-85-0883fumxqkx aspart FlexPen (NovoLOG) 100 UNIT/ML pen Indications: Type 2 diabetes mellitus with hyperglycemia, with long-term current use of insulin (HCC) INJECT SUBCUTANEOUSLY THREE TIMES A DAY PER SLIDING SCALE; *30 TO 40 UNITS DAILY* 15 mL 5 12/26/2024 ActiveStart: 08-05-2024 End: 83-11-0001rwbgamq aspart FlexPen (NovoLOG) 100 UNIT/ML pen Indications: Type 2 diabetes mellitus with hyperglycemia, with long-term current use of insulin ([facility]/HCC) INJECT SUBCUTANEOUSLY THREE TIMES A DAY PER SLIDING SCALE; *30 TO 40 UNITS DAILY* 15 mL 5 08/06/2024 ActiveStart: 08-10-2023 End: 44-62-0870hszsxrj aspart FlexPen (NovoLOG) 100 UNIT/ML pen Indications: [...] pen injector (3 sources)Insulin AnalogStart: 09-07-2023 End: 74-31-9167gzbouvm detemir (Levemir FlexPen) 100 UNIT/ML pen Indications: Type 2 diabetes mellitus with microalbuminuria, with long-term current use of insulin (CMS/HCC) Inject 15 Units under the skin at bedtime 13.5 mL 3 09/07/2023 09/06/2024 Activeinsulin glargine 100 unt/ml injectable solution (20 sources)Insulin AnalogStart: 06-04-2025 End: 97-93-9928fhejni 20 [IU] by subcutaneous injection twice dailyInsulin Glargine (Lantus U-100 Insulin) 100 unit/mL solution Active 20 UNIT SUBCUT Twice daily June 06, 2025 10:27am Complies with drug therapyStart: 02-10-2025 inject 20 [IU] by subcutaneous injection in the morninginsulin glargine (Semglee) 100 UNIT/ML pen Indications: Type 2 diabetes mellitus with hyperglycemia, with long-term current use of insulin ([facility]) Inject 20 Units under the skin in the morning and 20 Units before bedtime. 15 mL 3 02/10/2025 Active Start: 11-12-2024 End: 15-20-6929xeskgmt glargine (Semglee) 100 UNIT/ML pen Indications: Type 2 diabetes mellitus with hyperglycemia, with long-term current use of insulin (CMS/HCC) Inject 15 Units under the skin in the morning. 3 mL 3 11/12/2024 02/10/2025 Discontinued (Reorder)Start: 34-65-0387nsormtu glargine (Semglee) 100 UNIT/ML pen Indications: Type 2 diabetes mellitus with hyperglycemia, with long-term current use of insulin (CMS/HCC) Inject 15 Units under the skin in the morning. 3 mL 3 11/05/2024 ActiveStart: 65-05-3841pyibwjn glargine (Semglee) 100 UNIT/ML pen Indications: Type 2 diabetes mellitus with hyperglycemia, with long-term current use of insulin (CMS/HCC) Inject 15 Units under the skin in the morning. 10/28/2024 ActiveStart: 10-23-2024 End: 52-56-1019eotzmuz glargine (Semglee) 100 UNIT/ML pen Indications: Type 2 diabetes mellitus with hyperglycemia, with long-term current use of insulin (CMS/HCC) Inject 30 Units under the skin at bedtime 9 mL 5 10/23/2024 10/28/2024 Discontinued (Dose adjustment)Start: 46-35-6598ltzempz glargine (Semglee) 100 UNIT/ML pen Indications: Type 2 diabetes mellitus with hyperglycemia, with long- term current use of insulin (CMS/HCC) Inject 30 Units under the skin at bedtime 9 mL 5 07/24/2024 ActiveStart: 25-43-9747jvxveno glargine (Semglee) 100 UNIT/ML pen Indications: Type 2 diabetes mellitus with hyperglycemia, with long-term current use of insulin (CMS/HCC) Inject 30 Units under the skin at bedtime 9 mL 5 06/07/2024 ActiveStart: 05-29-2024 End: 09-65-4077lkulkhl glargine (Lantus SoloStar) 100 UNIT/ML pen Indications: Type 2 diabetes mellitus with microalbuminuria, with long-term current use of insulin (CMS/HCC) Inject 30 Units under the skin Daily 5 each 5 06/06/2024 06/07/2024 DiscontinuedStart: 69-44-2969axater 15 [IU] by subcutaneous injection in the morninginsulin glargine (Lantus SoloStar) 100 UNIT/ML pen Indications: Type 2 diabetes mellitus with microalbuminuria, with long-term current use of insulin (CMS/HCC) Inject 15 Units under the skin in the morning and 15 Units before bedtime. 5 each 05/29/2024 ActiveStart: 36-00-5904notdmq 15 [IU] by subcutaneous injection in the morninginsulin glargine (Lantus SoloStar) 100 UNIT/ML pen Indications: Type 2 diabetes mellitus with microalbuminuria, with long-term current use of insulin (CMS/[facility]) Inject 15 Units under the skin in the morning and 15 Units before bedtime. 5 each 05/29/2024 ActiveStart: 04-05-2024 End: 74-69-9419nekgko 15 [IU] by subcutaneous injection in the [...] pens stable 28 days at room temperature.Start: 87-41-9800rcjgzhg glargine (LANTUS) injection vial 20 UnitsStart: 71-57-7882rhssygl glargine (LANTUS) injection vial 10 UnitsStart: 04-16-2018 End: 88-20-8371jgenxt 40 [IU] by subcutaneous injection twice dailyInsulin [...] 100 unt/ml pen injector (6 sources)Insulin AnalogStart: 05-88-0632ihmozq 400 mg by subcutaneous injection three times [...] or immediately after a meal.Start: 12-20-2023 End: 83-88-6635Ppsmucnm on Mon12/20/23 at 2234, For 1 dose, Emerson Dooley: cabinet override Look-alike/sound-alike medication - verify indication for use. Prime with 2 units of insulin prior to administration. Prandial/supplemental Insulin. Pre-filled pens stable 28 days at room temperature. Insulin lispro should be administered within 15 minutes before or immediately after a meal. Start: 18-06-3643jbxies 400 mg by subcutaneous injection once daily, [...] or immediately after a meal.Start: 09-29-2021 End: 53-16-0527wphejok lispro (HUMALOG) injection vial 0-18 Units M-Cdvfkkmufycb-Tkuwd-B12-B6 (Metanx) 3-90.314-2-35 MG capsule (9 sources)Start: 10-09-2024 End: 18-22-6682oywr 1 capsule by mouth in the kmervlfO-Iyahnfrqimvq-Isfpb-B12-B6 (Metanx) 3-90.314-2-35 MG capsule Indications: Diabetic polyneuropathy a ssociated with type 2 diabetes mellitus (CMS/HCC) , Neuritis Take 3 mg by mouth in the morning and 3 mg before bedtime. 180 capsule 3 10/09/2024 01/07/2025 ActivelamoTRIgine 200 mg oral tablet (20 sources)Mood Stabilizer, Anti-epileptic AgentStart: 02-49-3919rtxv 200 mg by mouth once daily for mbdikwbkif795 mg, oral, Daily, First dose on Joaquina 12/21/23 at 0900, Look-alike/sound-alike medication - verify indication for use., Indications: depression associated with bipolar disorderStart: 06-11-2018 End: 84-14-7295frfc 1 tablet by mouth once daily at bedtimelanolin 1000 mg/ml topical cream (20 sources)Start: 36-01-7031ooqmejx (Lansinoh) cream Indications: Nipple pain Apply topically if needed for dry skin 7 g 09/27/2023 Activelidocaine 0.05 mg/mg medicated patch (4 sources)Antiarrhythmic, Amide Local AnestheticStart: 13-28-4185zoelx 1 dose transdermal route every twelve hours in the morninglidocaine (LIDODERM) 5 % Place 1 patch on the skin in the morning. Remove & Discard patch within 12 hours or as directed by . 30 patch 07/24/2024 Activelisinopril 2.5 mg oral tablet (20 sources)Angiotensin Converting Enzyme InhibitorStart: 07-13-2023 End: 34-58-6905gyaz 1 tablet by mouth once daily in the morninglisinopriL (PRINIVIL,ZESTRIL) 2.5 mg tablet take 1 tablet by mouth every morning 30 tablet 2 04/17/2024 ActiveStart: 06-11-2018 End: 95-33-5175zafx 1 tablet by mouth once daily in the morningLisinopril 5 mg tablet Discontinued 5 MG PO Every morning June 11, 2018 12:00am May 01, 2025 10:36amloperamide hydrochloride 2 mg oral capsule (1 source)Opioid AgonistStart: 16-66-8280zubenezvsd (IMODIUM) capsule 2 mg LORazepam 1 mg oral tablet (20 sources)BenzodiazepineStart: 07-08-2024 End: 52-80-4894OTOsupdfs (ATIVAN) 1 mg tablet Take 1 tablet (1 mg total) by mouth as needed in the morning and 1 tablet (1 mg total) as needed at noon and 1 tablet (1 mg total) as needed in the evening. 07/10/2024 ActiveStart: 04-19-2024 End: 25-03-6971gzbh 1 tablet by mouth three times daily as needed for anxiety LORazepam (Ativan) 1 MG tablet Indications: Anxiety state (CMS/HCC) TAKE 1 TABLET BY MOUTH 3 TIMES DAILY NEEDED FOR ANXIETY 90 tablet 05/16/2024 Active Start: 09-88-0976wzqy 1 tablet by mouth three times daily as neededLORazepam (Ativan) 1 MG tablet Indications: Anxiety state (CMS/HCC) TAKE 1 TABLET BY MOUTH 3 TIMES DAILY NEEDED 90 tablet 1 09/20/2023 Xauebc63 ml magnesium sulfate 40 mg/ml injection (3 [...] result continue the replacement orders as needed.Start: 64-21-7445ctddrnkpc sulfate 1000 mg in dextrose 5% 100 mL IVPBmetoprolol tartrate 50 mg oral tablet (20 sources)beta-Adrenergic BlockerStart: 47-33-2570pwge 1 tablet by mouth once dailyMetoprolol Tartrate 50 mg tablet Active 50 MG PO Daily June 04, 2025 12:00am Complies with drugtherapyStart: 43-47-7203gvqicxlyrj tartrate (Lopressor) 50 MG tablet 07/31/2023 ActiveMisc. Devices misc (2 sources)Start: 77-56-0347Wpuc. Devices misc Indications: Pre-op examination Dispense: Front Wheeled walker use 90 days. Ht: 5'1 Weight: 206 1 Units 06/03/2025 ActiveMOUNJARO 2.5 mg/0.5 mL pen injector (20 sources)Start: 10-07-2024 End: 28-51-0043chhlgx 5 mg by subcutaneous injection every weekMOUNJARO 2.5 mg/0.5 mL pen injector Indications: Type 2 diabetes mellitus with hyperglycemia, with long-term current use of insulin ([facility] [place] Inject 5 mg under the skin once a week for 12 doses. 0.5 mL 3 10/07/2024 12/24/2024 Active End: 26-87-6950asyxis 2.5 mg by subcutaneous injection every weekMOUNJARO [...] tablet (20 sources)Nonsteroidal Anti-inflammatory DrugStart: 09-05-2023 End: 91-08-3800toeplbcuqg (RELAFEN) 500 mg tablet Take 1 tablet (500 mg total) by mouth as needed in the morning and 1 tablet (500 mg total) as needed in the evening. 08/15/2024 Active End: 44-41-1487rrvw 1 tablet by mouth twice dailynabumetone (RELAFEN) 500 MG tablet Take 500 mg by mouth 2 times daily 0 10/02/2021 Discontinued (Stop Taking at Discharge)naproxen 500 mg oral tablet (20 sources)Nonsteroidal Anti-inflammatory DrugStart: 37-73-7515zrlu 1 tablet by mouth in the morning, then take 1 tablet by mouth at mealtimenaproxen (NAPROSYN) 500 mg tablet Take 1 tablet (500 mg total) by mouth in the morning and 1 tablet(500 mg total) in the evening. Take with meals. 30 tablet 06/29/2024 Active End: 28-26-5284ngos 1 tablet by mouth twice daily at mealtimenaproxen (NAPROSYN) 500 MG tablet Take 500 mg by mouth 2 times daily (with meals) 0 10/02/2021 Discontinued (Stop Taking at Discharge)ofloxacin 3 mg/ml ophthalmic solution (20 sources)Quinolone AntimicrobialStart: 45-85-2592xbec 0.3 drop(s) into the eye(s) four times dailyStart: 23-73-1425mlggddgyp (Ocuflox) 0.3 % ophthalmic solution INSTILL 1 DROP INTO AFFECTED EYE X4/DAY DIRECTED START 3DAYS PRIOR TO SX,THEN IMMEDIATELY FOLLOWING SX EVERY HOUR W/A,THEN X4/DAY NEXT DAY TIL APPT *04/14* 03/06/2025 Activeondansetron 4 mg disintegrating oral tablet (20 sources)Serotonin-3 Receptor AntagonistStart: 06-52-4958teii 1 tablet by mouth every six hours as needed for nausea and nauseaondansetron (Zofran) 4 MG tablet Indications: Nausea TAKE 1 TABLET BY MOUTH EVERY 6 HOURS NEEDEDFOR NAUSEA OR VOMITING 30 tablet 3 04/28/2025 ActiveStart: 59-13-5048ibzc 1 tablet by mouth every eight hours as needed for nauseaondansetron ODT (ZOFRAN ODT) 4 mg disintegrating tablet Dissolve 1 tablet (4 mg total) on tongue every 8 (eight) hours as needed for nausea for up to 10 doses. 10 tablet 10/27/2024 ActiveStart: 94-44-0442biyw 1 tablet by mouth every six hours as needed for nausea and vomitingStart: 03-19-2024 End: 12-51-0923uvfd 1 tablet by mouth every six hours as needed for nausea and vomiting and nausea and nauseaondansetron ODT (Zofran-ODT) 4 MG disintegrating tablet Indications: Nausea Take 1 tablet (4 mg) bymouth every 6 (six) hours if needed for nausea or vomiting 30 tablet 2 03/19/2024 04/24/2024 ExpiredStart: 36-11-0861akzi 4 mg intravenously every six hours as needed for nausea and vomiting4 mg, intravenous, Every 6 hours PRN, nausea, vomiting, Starting on Mon12/20/23 at 2211, Administerover 2-5 minutes.Start: 64-82-5838vuhotdsozmw (ZOFRAN) injection 4 mg24 hr oxybutynin chloride 15 mg extended release oral tablet (20 sources)Cholinergic Muscarinic AntagonistStart: 31-36-1156vgwi 1 tablet by mouth once dailyoxybutynin XL (Ditropan-XL) 15 MG 24 hr tablet Take 15 mg by mouth Daily 06/19/2023 ActiveStart: 06-19-2023 End: 79-54-3283axrz 1 tablet by mouth every twenty-four hours in the morning oxybutynin XL (Ditropan-XL) 15 MG 24 hr tablet Take 15 mg by mouth in the morning. 06/19/2023 Activepantoprazole 40 mg delayed release oral tablet (20 sources)Proton Pump InhibitorStart: 06-11-2018 End: 83-55-4743wvto 1 tablet by mouth once daily in the morningPantoprazole (Protonix) 40 mg Tablet,Delayed Release (Dr/Ec) Active 40 MG PO Every morning June 11, 2018 12:00am Complies with drug therapypioglitazone 45 mg oral tablet (20 sources)Peroxisome Proliferator Receptor alpha Agonist, Peroxisome Proliferator Receptor gamma Agonist, ThiazolidinedioneStart: 31-83-663056 mg, oral, Daily, First dose on Joaquina 12/21/23 at 0900, Hold dose and notify prescriber if blood glucose is less than 100 mg/dL or patient status has changed to NPO. Look-alike/sound-alike medication - verify indication for use.Start: 06-19-2023 End: 67-98-9521luix 1 tablet by mouth once daily in the morningpolyethylene glycol 3350 12714 mg powder for oral solution (1 source)Osmotic LaxativeStart: 63-11-0445ircbsnxhqfez glycol (GLYCOLAX) packet 17 gPotassium Chloride (3 sources)Start: 50-59-5723rojmfczas chloride (K-TAB,KLOR-CON) CR tablet 30-50 mEqStart: 21-58-3339hnotkssiw chloride (KLOR-CON M) extended release tablet 40 mEqStart: 09-28-2021 End: 88-72-9042pjkqztcrd chloride 10 mEq/100 mL IVPB (Peripheral Line)prazosin 1 mg oral capsule (20 sources)alpha-Adrenergic BlockerStart: 25-61-1238ttqp 2 mg by mouth once daily2 mg, oral, Nightly, First dose on Joaquina 12/21/23 at 2200Start: 06-19-2023 prazosin (Minipress) 2 MG capsule 06/19/2023 ActiveprednisoLONE acetate 10 mg/ml ophthalmic suspension (20 sources)CorticosteroidStart: 84-45-4493jkmvarjuXBJF acetate (Pred-Forte) 1 % ophthalmic suspension INSTILL 1 DROP IN AFFECTED EYE EVERY HOUR WHILE AWAKE AFTER SURGERY THEN NEXT DAY 4 TIMES DAILY UNTIL APPOINTMENT *EFFECTIVE 04/14* 03/06/2025 ActiveSEMGLEE,INSULIN GLARG-YFGN,PEN 100 unit/mL (3 mL) insulin pen (9 sources)Start: 39-69-3819HSQRRDC,INSULIN GLARG-YFGN,PEN 100 unit/mL (3 mL) insulin pen Inject into the appropriate muscle. 06/10/2024 Activesod sulf-pot chloride-mag sulf 1.479-0.188- 0.225 gram tablet (1 source)Start: 62-61-8139hzw sulf-pot chloride-mag sulf 1.479-0.188- 0.225 gram tablet Indications: Encounter for screening colonoscopy Please see instructional sheet given by physicians office. 24 tablet 08/21/2024 Hfhqde1392 ml sodium chloride 9 mg/ml injection (6 sources)Start: 83-96-4960rnez 100 mL intravenously every hjwl983 mL/hr, intravenous, Continuous, Starting on Mon12/20/23 at 2215Start: 30-83-5817zbgv 20 mL intravenously every hour as xikahf10 mL/hr, intravenous, Continuous PRN, to maintain patency of lines, Starting on Mon12/20/23 at 2211Start: 62-81-9738hrtx 25 mL intravenously every hour as fblxmo91 mL, intravenous, at 100 mL/hr, Administer over [...] 5 % 250 mL IVPB (1 source)Start: 55-20-3289idaejk phosphate 10 mmol in dextrose 5 % 250 mL IVPB SUMAtriptan 25 mg oral tablet (20 sources)Serotonin-1b and Serotonin-1d Receptor AgonistStart: 26-71-8005zwef 1 tablet by mouth every two hoursStart: 50-67-0600JJVSiggsbqe (Imitrex) 25 MG tablet Indications: Migraine without aura and without status migrainosus, not intractable (CMS/HCC) TAKE 1 TABLET BY MOUTH NEEDED 9 tablet 10 03/18/2024 ActiveStart: 48-42-1857JVJTcaunbbm (Imitrex) 25 MG tablet Take 25 mg by mouth if needed. 0 06/19/2023 ActiveTirzepatide (Mounjaro) 2.5 MG/0.5ML solution pen-injector (20 sources)Start: 05-16-2024 End: 67-63-9802xnvvnh 2.5 mg by subcutaneous injection every weekTirzepatide (Mounjaro) 2.5 MG/0.5ML solution pen-injector Indications: Type 2 diabetes mellitus with hyperglycemia, with long-term current use of insulin (CMS/HCC) INJECT 2.5MG SUBCUTANEOUSLY ONCE WEEKLY 2 mL 5 05/16/2024 08/06/2024 DiscontinuedStart: 52-99-7501ruvrpz 2.5 mg by subcutaneous injection every week Tirzepatide (Mounjaro) 2.5 MG/0.5ML solution pen-injector Indications: Type 2 diabetes mellitus with hyperglycemia, with long-term current use of insulin (CMS/HCC) INJECT 2.5MG SUBCUTANEOUSLY ONCE WEEKLY 2 mL 5 05/16/2024 ActiveStart: 01-09-2024 End: 55-46-8607jsrdmm 2.5 mg by subcutaneous injection every weekTirzepatide (Mounjaro) 2.5 MG/0.5ML solution pen-injector Indications: Type 2 diabetes mellitus with microalbuminuria, with long-term current use of insulin (CMS/HCC) Inject 2.5 mg under the skin 1 (one) time per week 2 mL 3 01/09/2024 05/13/2024 DiscontinuedStart: 84-39-2286zykaqy 2.5 mg by subcutaneous injection every week Tirzepatide (Mounjaro) 2.5 MG/0.5ML solution pen-injector Indications: Type 2 diabetes mellitus with microalbuminuria, with long-term current use of insulin (CMS/HCC) Inject 2.5 mg under the skin 1 (one) time per week 2 mL 3 01/09/2024 Activetirzepatide (MOUNJARO) 5 mg/0.5 mL pen injector (20 sources)Start: 87-60-9794glfgprinyqk (MOUNJARO) 5 mg/0.5 mL pen injector Indications: Type 2 diabetes mellitus with hyperglycemia, with long-term current use of insulin (CMS-HCC) Inject 5 mg under the skin every 7 days. 6 mL3 10/07/2024 ActiveTirzepatide (Mounjaro) 5 MG/0.5ML solution pen-injector (20 sources)Start: 05-13-2024 End: 29-32-3832tyuvqj 5 mg by subcutaneous injection every weekTirzepatide (Mounjaro) 5 MG/0.5ML solution pen-injector Indications: Type 2 diabetes mellitus with hyperglycemia, with long-term current use of insulin (CMS/HCC) Inject 5 mg under the skin 1 (one) time per week 2 mL 5 05/13/2024 08/06/2024 DiscontinuedStart: 46-69-6834bdpqwm 5 mg by subcutaneous injection every week Tirzepatide (Mounjaro) 5 MG/0.5ML solution pen-injector Indications: Type 2 diabetes mellitus with hyperglycemia, with long-term current use of insulin (CMS/HCC) Inject 5 mg under the skin 1 (one) time per week 2 mL 5 05/13/2024 ActiveStart: 05-13-2024 End: 68-21-1796ukrjdb 5 mg by subcutaneous injection every weekTirzepatide [...] mg oral tablet (20 sources)Serotonin Reuptake InhibitorStart: 09-88-4574ducy 1 tablet by mouth once dailyStart: 75-48-3741tfce 3 tablets by mouth once daily at bedtime as needed for sleepTRELEGY ELLIPTA 200-62.5-25 mcg blister with device (20 sources)Start: 67-98-7302mcvp 1 puff(s) by inhalation in the morningTRELEGY ELLIPTA 200-62.5-25 mcg blister with device Inhale 1 puff in the morning. 60 each 11 03/24/2025 ActiveStart: 02-17-2025 End: 37-58-6032gbgc 1 puff(s) by inhalation in the morningTRELEGY ELLIPTA 200-62.5-25 mcg blister with device Inhale 1 puff in the morning. 60 each 02/17/2025 03/24/2025 Discontinued (Reorder)Start: 85-19-1915uywm 1 puff(s) by inhalation in the morningTRELEGY ELLIPTA 200-62.5-25 mcg blister with device Inhale 1 puff in the morning. 60 each 02/17/2025 ActiveStart: 02-17-2025 End: 81-78-0906vaga 1 puff(s) by inhalation in the morningTRELEGY ELLIPTA 200-62.5-25 mcg blister with device Inhale 1 puff in the morning. 60 each 02/17/2025 02/17/2025 DiscontinuedStart: 08-14-2024 End: 03-33-0249qqkc 1 puff(s) by inhalation in the morningTRELEGY ELLIPTA 200-62.5-25 mcg blister with device Inhale 1 puff in the morning. 08/14/2024 02/17/2025 Discontinued (Reorder)Start: 30-35-1954oppq 1 puff(s) by inhalation in the morningTRELEGY ELLIPTA 200-62.5-25 mcg blister with device Inhale 1 puff in the morning. 08/14/2024 ActiveTrelegy Ellipta 200-62.5-25 MCG/ACT aerosol powder (20 sources)Start: 42-94-3845itbp 1 puff(s) by inhalation in the morningTrelegy Ellipta 200-62.5-25 MCG/ACT aerosol powder Inhale 1 puff in the morning. 03/21/2024 ActiveTRULICITY 4.5 mg/0.5 mL pen injector (17 sources)Start: 31-00-1028ptjxcp 4.5 mg by subcutaneous injection every week TRULICITY 4.5 mg/0.5 mL pen injector INJECT 4.5 MG SUBCUTANEOUSLY ONCE EVERY WEEK 11/25/2023 Active Completed/Discontinued Medications MedicationDrug Class(es)DatesSig (Normalized)Sig (Original)acetaminophen 300 mg / codeine phosphate 30 mg oral tablet (1 source)Opioid Agonist End: 12-57-6388ttjy 1 tablet by mouth every six hours as needed for pain acetaminophen-codeine (TYLENOL #3) 300-30 MG per tablet Take 1 tablet by mouth every 6 hours as needed for Pain. 0 10/02/2021 Discontinued (Stop Taking at Discharge)azithromycin (ZITHROMAX) 500 mg in dextrose 5% 250 mL IVPB (1 source)Start: 09-28-2021 End: 77-75-4618rmstxvwnvgse (ZITHROMAX) 500 mg in dextrose 5% 250 mL IVPB cefTRIAXone (ROCEPHIN) 1000 mg IVPB in 50 mL D5W minibag (1 source)Start: 09-28-2021 End: 32-33-4201suwVQKHQnab (ROCEPHIN) 1000 mg IVPB in 50 mL D5W minibag Continuous Blood Gluc Sensor (FreeStyle Crystal 14 Day Sensor) [facility] [place] (20 sources)Start: 11-02-2023 End: 87-36-2659Rxdejroija Blood Gluc Sensor (FreeStyle Crystal 14 Day Sensor) [facility] [place] Indications: Type 2 diabetes mellitus with microalbuminuria, with long-term current use of insulin ([facility]) apply 1 SENSOR to back OF UPPER ARM REMOVE AND REPLACE every 14 d... (REFER TO PRESCRIPTION NOTES). 2 each 11/02/202309/04 Discontinued (Reorder)Start: 82-88-2161Mplugnomcr Blood Gluc Sensor (FreeStyle Crystal 14 Day Sensor) [facility] [place] Indications: Type 2 diabetes mellitus with microalbuminuria, with long-term current use of insulin (CMS/[facility]) apply 1 SENSOR to back OF UPPER ARM REMOVE AND REPLACE every 14 d... (REFER TO PRESCRIPTION NOTES). 2 each 11/02/2023 ActiveStart: 80-19-7458Nmeljmsala Blood Gluc Sensor (FreeStyle Crystal 14 Day Sensor) [facility] [place] apply 1 SENSOR to back OF UPPER ARM REMOVE AND REPLACE every 14 d... (REFER TO PRESCRIPTION NOTES). 0 02/09/2023 Active0.5 ml dulaglutide 1.5 mg/ml auto-injector (20 sources)GLP-1 Receptor AgonistStart: 66-71-2786Zzxbhhwtzoz (Trulicity) 1.5 mg/0.5 mL pen injector Active 1.5 MG SUBCUT every week June 04, 2025 12:00am Complies with drug therapyStart: 03-12-2025 End: 51-24-6012Lxnlzjqiwfk (Trulicity) 0.75 mg/0.5 mL pen injector Discontinued 0.75 MG SUBCUT Once a week May 01, 2025 12:00am June 04, 2025 11:40am Start: 01-01-2025 End: 11-14-8854tptflv 0.75 mg by subcutaneous injection every weekDulaglutide (Trulicity) 0.75 MG/0.5ML solution auto-injector Indications: Type 2 diabetes mellitus with hyperglycemia, with long-term current use of insulin ([facility]) Inject 0.75 mg under the skin 1 (one) time per week 2 mL 2 01/01/2025 02/10/2025 DiscontinuedglipiZIDE 10 mg oral tablet (1 source)Sulfonylurea End: 41-89-7960gqqm 1 tablet by mouth twice daily before mealtimeglipiZIDE (GLUCOTROL) 10 MG tablet Take 10 mg by mouth 2 times daily (before meals) 0 10/02/2021 Discontinued (Stop Taking at Discharge)insulin regular (HUMULIN R;NOVOLIN R) 100 Units in sodium chloride 0.9 % 100 mL infusion (1 source)Start: 09-28-2021 End: 67-22-7685eovlawz regular (HUMULIN R;NOVOLIN R) 100 Units in [...] injection 50 mL (1 source)Start: 10-01-2021 End: 85-86-1374bswgnlu (OMNIPAQUE 240) injection 50 mLpotassium phosphate 30 mmol in dextrose 5 % 250 mL IVPB (1 source)Start: 10-01-2021 End: 27-56-2578yubjplnug phosphate 30 mmol in dextrose 5 % 250 mL IVPBsertraline 100 mg oral tablet (20 sources)Serotonin Reuptake InhibitorStart: 01-22-2024 End: 54-89-2455usqc 2 tablets by mouth once dailysertraline (Zoloft) 100 MG tablet Indications: JOHN (generalized anxiety disorder) ([facility]) Take 2 tablets (200 mg) by mouth Daily 60 tablet 11 01/22/2024 02/10/2025 DiscontinuedStart: 44-21-5538qfzu 100 mg by mouth once kjvju309 mg, oral, Daily, First dose on [place] 12/21/23 at 0900, Look-alike/sound-alike medication - verify indication for use. Start: 06-11-2018 End: 56-02-1757wjus 1 tablet by mouth once daily in [...] 1,000 mL infusion (1 source)Start: 09-30-2021 End: 57-61-7609qtssjf bicarbonate 100 mEq in dextrose 5 % 1,000 mL infusion Tirzepatide (Mounjaro) 2.5 MG/0.5ML solution auto-injector (11 sources)Start: 02-11-2025 End: 09-00-1754hpgkmh 2.5 mg by subcutaneous injection every weekTirzepatide (Mounjaro) 2.5 MG/0.5ML solution auto-injector Indications: Type 2 diabetes mellitus with hyperglycemia, with long-term current use of insulin ([facility]) Inject 2.5 mg under the skin 1 (one) time per week 2 mL 5 02/11/2025 03/05/2025 DiscontinuedStart: 30-34-0404abkiny 2.5 mg by subcutaneous injection every week Tirzepatide (Mounjaro) 2.5 MG/0.5ML solution auto-injector Indications: Type 2 diabetes mellitus with hyperglycemia, with long-term current use of insulin (HCC) Inject 2.5 mg under the skin 1 (one) time per week 2 mL 5 02/11/2025 ActiveStart: 69-88-2492cscnbh 2.5 mg by subcutaneous injection every week Tirzepatide (Mounjaro) 2.5 MG/0.5ML solution auto-injector Indications: Type 2 diabetes mellitus with hyperglycemia, with long-term current use of insulin (CMS/HCC) Inject 2.5 mg under the skin 1 (one) time per week 2 mL 5 02/10/2025 Active End: 53-27-4369Oxranqjdmzu (Mounjaro) 2.5 MG/0.5ML solution auto-injector Inject under the skin 03/05/2025 DiscontinuedTirzepatide (Mounjaro) 2.5 MG/0.5ML solution auto-injector Inject under the skin ActiveTirzepatide (Mounjaro) 7.5 MG/0.5ML solution auto-injector (16 sources)Start: 08-06-2024 End: 53-84-6443uukfru 7.5 mg by subcutaneous injection every weekTirzepatide (Mounjaro) 7.5 MG/0.5ML solution auto-injector Indications: Type 2 diabetes mellitus with hyperglycemia, with long-term current use of insulin (CMS/HCC) Inject 7.5 mg under the skin 1 (one) time per week 2 mL 5 08/06/2024 10/28/2024 DiscontinuedStart: 12-84-4290flxbnn 7.5 mg by subcutaneous injection every week Tirzepatide (Mounjaro) 7.5 MG/0.5ML solution auto-injector Indications: Type 2 diabetes mellitus with hyperglycemia, with long-term current use of insulin (CMS/HCC) Inject 7.5 mg under the skin 1 (one) time per week 2 mL 5 08/06/2024 Active Problems Active Problems Problem ClassificationProblemDateDocumented DateEpisodic/ChronicAbdominal pain (7 sources)Unspecified abdominal pain; Translations: [Pain in female pelvis] Onset: 51-03-5958SlnbjnfdAajcusx disorders (20 sources)Anxiety disorder, unspecified; Translations: [Anxiety state]Onset: [id number] (20 sources)Uncomplicated moderate persistent asthma; Translations: [Moderate persistent asthma, uncomplicated]Onset: 431479-54-2733CbjiviyVcaxnrlr (2 sources)Posterior subcapsular polar age-related cataract, left eye; Translations: [Posterior subcapsular polar age-related cataract, right eye] Onset: 10-81-3686JpzqlzgOewughp obstructive pulmonary disease and bronchiectasis (20 sources)Acute exacerbation of chronic obstructive airways disease; Translations: [Chronic obstructive pulmonary disease with (acute) exacerbation] Onset: 07-21-2024 Resolved: 702092-13-5541OregrdzIgczerqvga heart failure; nonhypertensive (20 sources)Chronic heart failure co-occurrent with normal ejection fraction; Translations: [Chronic diastolic (congestive) heart failure]Onset: 04-06-2023 55-23-2703PygvkxsBctyroee mellitus with complications (20 sources)Type 1 diabetes mellitus; Translations: [Type 1 diabetes mellitus with ketoacidosis without coma]Onset: 09-30-2009 Resolved: 67-71-5255FtrszivNnygysjmc of lipid metabolism (20 sources)Dyslipidemia; Translations: [Hyperlipidemia, unspecified]Onset: 531629-37-7966RjqqvqmHuwudqegwe disorders (20 sources)Gastroesophageal reflux disease; Translations: [Gastro-esophageal reflux disease without esophagitis]Onset: 594796-14-8010YsxhjkdGnyyynpff hypertension (20 sources)Hypertensive disorder; Translations: [Essential (primary) hypertension]Onset: 613635-65-9388HustihhTqhcmmll; including migraine (20 sources)Migraine without aura, not refractory ; Translations: [Migraine without aura, not intractable, without status migrainosus]Onset: 04-06-2023 95-68-6802PreheacLlczaunf disorders (2 sources)Secondary immune deficiency disorder; Translations: [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 elsewhere (CMS/[facility])]42-43-7434IgcufixAbkrr disorders and dislocations; trauma-related (4 sources)Derangement of left knee; Translations: [Unspecified internal derangement of left knee]27-30-9540IcjcrtiPxffh disorders and dislocations; trauma-related (4 sources)Acute tear of medial meniscus of left knee; Translations: [Other tear of medial meniscus, current injury, left knee, initial encounter]03-23-2025 EpisodicMenopausal disorders (20 sources)Menopausal and female climacteric states; Translations: [Menopausal flushing]Onset: 90-01-8036RjnoxhbUoqt disorders (20 sources)Major depressive disorder, recurrent, unspecified; Translations: [Recurrent major depressive episodes, mild ]Onset: hronic Osteoarthritis (20 sources)Unspecified osteoarthritis, unspecified site; Translations: [Osteoarthritis of knee]Onset: 442249-69-0079AzofsfaNxrmx acquired deformities (20 sources)Contracture of ankle joint; Translations: [Contracture, unspecified ankle]Onset: 511166-06-9259HwcrwxrWaoxs aftercare (1 source)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; Translations: [OTH HALFWAY CURRENT DRUG THERAPY]Onset: 04-71-1453WvmabcmiGykye connective tissue disease (2 sources)Inflammatory neuropathy ; Translations: [Neuralgia and neuritis, unspecified]66-97-1128DrzuvamhDzxoo diseases of bladder and urethra (20 sources)Overactive bladder; Translations: [Overactive bladder]Onset: 850036-34-7786FpamlxtNqeyh female genital disorders (1 source)Ovarian pain; Translations: [Other specified conditions associated with female genital organs and menstrual cycle]95-97-5577GrfmaghjChtbu gastrointestinal disorders (1 source)Irritable bowel syndrome with diarrhea; Translations: [IRRITABLE BOWEL SYND W/DIARRHEA]Onset: 93-70-0841ZwttthgTnzxb gastrointestinal disorders (20 sources)Irritable bowel syndrome with diarrhea; Translations: [Irritable bowel syndrome with diarrhea]Onset: 058200-02-2175MwwvdlnGnapw gastrointestinal disorders (4 sources)Change in bowel habit; Translations: [CHANGE IN BOWEL HABIT]Onset: 63-86-7553YscfdbwpCwwxf lower respiratory disease (4 sources)Dyspnea; Translations: [Shortness of breath]29-79-2230OselroogFrjaa lower respiratory disease (1 source)Hypoxemia; Translations: [Hypoxemia]Onset: 85-58-9897SixxbvipGyuld lower respiratory disease (1 source)CoughOnset: 74-45-5608RzwijqlsXuydb lower respiratory disease (1 source)WheezingOnset: 51-53-3302SgmcbdeiLeryn nervous system disorders (20 sources)Chronic pain; Translations: [Other chronic pain]Onset: 04-06-2023 Resolved: 138496-56-7798CrirqzcKnfki nervous system disorders (20 sources)Carpal tunnel syndrome of right wrist; Translations: [Carpal tunnel syndrome, right upper limb]Onset: 186565-20-0897ZoslqzdUfxiy nervous system disorders (1 source)Postoperative pain ; Translations: [Other acute postprocedural pain] 41-88-0061OeziiqzbJzspf non-traumatic joint disorders (20 sources)Derangement of left shoulder joint; Translations: [Other specific joint derangements of left shoulder, not elsewhere classified]Onset: 04-06-2023 34-84-3147BsqkxyjLzoas non-traumatic joint disorders (2 sources)Pain of right wrist; Translations: [Pain in right wrist]05-30-2024 EpisodicOther nutritional; endocrine; and metabolic disorders (20 sources)Morbid obesity; Translations: [Morbid (severe) obesity due to excess calories]Onset: 178394-47-3332IvhxhtgRpoon nutritional; endocrine; and metabolic disorders (20 sources)Alveolar hypoventilation; Translations: [Morbid (severe) obesity with alveolar hypoventilation]Onset: 460946-34-3928PmnwexfWefiq nutritional; endocrine; and metabolic disorders (20 sources)Body mass index 40+ - severely obese; Translations: [Body mass index (BMI) 45.0-49.9, adult]Onset: 06-05-2023 Resolved: 176211-15-5545FpxzyxoRcdfi nutritional; endocrine; and metabolic disorders (20 sources)Severe obesity; Translations: [Class 3 severe obesity due to excess calories with serious comorbidity and body mass index (BMI) of 40.0 to 44.9 in adult]Onset: 238713-14-0061QmphggmPlajz nutritional; endocrine; and metabolic disorders (1 source)Morbid (severe) obesity due to excess calories; Translations: [Morbid (severe) obesity due to excess calories]Onset: 42-37-0562QkrdegoSccrs upper respiratory disease (20 sources)Allergic rhinitis; Translations: [Allergic rhinitis, unspecified] Onset: 030475-49-7215QttxatgEmavx upper respiratory disease (6 sources)Lesion of skin of nose; Translations: [Disorder of the skin and subcutaneous tissue, unspecified]EpisodicPulmonary heart disease (20 sources)Pulmonary hypertension; Translations: [Pulmonary hypertension, unspecified]Onset: 976957-38-6879HntfpjkImicztua codes; unclassified (3 sources)Obstructive sleep apnea (adult) (pediatric); Translations: [OBSTRUCTIVE SLEEP APNEA]Onset: 69-62-0875HduaydoUqgnatbk codes; unclassified (20 sources)Obstructive sleep apnea syndrome; Translations: [Obstructive sleep apnea (adult) (pediatric)]Onset: 783885-57-7096SnylfxoDtszzbbi codes; unclassified (1 source)Sleep apneaOnset: 72-37-3654ZnnswzlZuubqljy codes; unclassified (2 sources)Pain; Translations: [Pain]Onset: 76-67-2260DtfssrxrTdirncem codes; unclassified (1 source)Unable to comply with treatment; Translations: [Noncompliance with CPAP treatment]16-56-3913DtqzhsotTlzgdwlpxhd failure; insufficiency; arrest (adult) (20 sources)Chronic hypoxemic respiratory failure; Translations: [Chronic respiratory failure with hypoxia]Onset: 02-19-2024 Resolved: 176482-25-3411PxwihndXayavsewhxd; intervertebral disc disorders; other back problems (20 sources)Spondylosis without myelopathy; Translations: [Spondylosis without myelopathy or radiculopathy, site unspecified]Onset: hronic Unclassified (2 sources)Post-op; Translations: [Post-op]Onset: 00-49-2253Dthyqysndaot (3 sources)Patient encounter status; Translations: [Colon Cancer Screening] Onset: 886624-12-1173Qvhcwusbdupi (2 sources)Acute pain of left igey88-91-7616Wllaxkevjatd (1 source)Pulm HTNOnset: 85-62-5832Dveuqvwzbgtf (2 sources)L98.9 - Disorder of the skin and subcutaneous tissue, unspecified Unclassified (1 source)Pre-op ExamOnset: 43-95-1043Cinxqtgnowsq (1 source)EMSOnset: 07-21-2024 Past or Other Problems Problem ClassificationProblemDateDocumented DateEpisodic/ChronicAcquired foot deformities (20 sources)Plantarflexion deformity of left foot; Translations: [Other acquired deformities of left foot]Onset: 207490-86-1102UgbicqhoJdwyt and unspecified renal failure (20 sources)Acute renal impairment; Translations: [Acute kidney failure with tubular necrosis]Onset: 09-30-2021 Resolved: 94-48-0081ShbxxrwbDzqfwprlmlmzyp/social admission (2 sources)Follow-up status; Translations: [Person consulting for explanation of examination or test findings]40-47-9854UwvcpqsfFexduotseo associated with dizziness or vertigo (1 source)Dizziness and giddiness; Translations: [Dizziness and giddiness]Onset: 75-33-2698ZtztowptEonhkbed atherosclerosis and other heart disease (20 sources)Preinfarction syndrome; Translations: [Unstable angina]Onset: 06-05-2023 Resolved: 163710-16-2344TinwfbdKtmmpewwmgvjy disorders (20 sources)Developmental delay; Translations: [Developmental disorder of scholastic skills, unspecified]Onset: 09-30-2009 Resolved: 23-48-2857WuryeykHckjsulo mellitus without complication (20 sources)Type 2 diabetes mellitus; Translations: [Type 2 diabetes mellitus without complications]Onset: 09-30-2009 Resolved: 874898-20-7028LglqgrpWcylhbve mellitus without complication (20 sources)Hyperglycemia; Translations: [Hyperglycemia, unspecified]Onset: 03-01-2019 Resolved: 374474-97-7596ZzbuvvgbDbdwh and electrolyte disorders (20 sources)Metabolic acidosis, increased anion gap (IAG); Translations: [Acidosis]Onset: 09-30-2021 Resolved: 97-17-8106RigknsvpIqctlkfmfwhon and screening for infectious disease (1 source)Encounter for screening for human papillomavirus (HPV); Translations: [ENC SCREENING HUMAN PAPILLOMAVIRUS]Onset: 59-39-1448IuojqmpmGdxujmucnwobs (20 sources)Mediastinal lymphadenopathy; Translations: [Localized enlarged lymph nodes]Onset: 176113-57-1867JtjpeubpVtohbuwts disorders (20 sources)Irregular menstruation, unspecified; Translations: [Missed period] Onset: 09-16-2022 Resolved: 148003-90-8360VvrpejkYisi disorders (20 sources)Mood disordersOnset: Nausea and vomiting (20 sources)Nausea and vomiting; Translations: [Nausea with vomiting, unspecified]Onset: 027324-19-2012MyycvsbzCwwpsxdrpgw chest pain (20 sources)Chest pain; Translations: [Other chest pain]Onset: 06-04-2023 Resolved: 790195-64-3542BtyoufohOrbhj aftercare (2 sources)FPC (current) use of insulin; Translations: [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]Onset: 59-73-7753BausrboaJvpxb aftercare (20 sources)Long-term current use of drug therapy; Translations: [Other alf (current) drug therapy]Onset: 264283-32-5609FmgfjzauErzcd and unspecified benign neoplasm (1 source)Polyp of colon; Translations: [Polyp of colon]Onset: 09-12-2024 EpisodicOther circulatory disease (20 sources)Elevated blood-pressure reading without diagnosis of hypertension; Translations: [Elevated blood-pressure reading, without diagnosis of hypertension]Onset: 228224-77-5427IukbjwcsYwgxe gastrointestinal disorders (20 sources)Incontinence of feces; Translations: [Full incontinence of feces] Onset: 06-22-2016 Resolved: 739134-70-3174LyxpiulrBynux lower respiratory disease (20 sources)Cavitation of lung; Translations: [Other disorders of lung]Onset: 08-10-2023 Resolved: 237140-44-5026VjccarewAmpxz lower respiratory disease (20 sources)Hypoxia; Translations: [Hypoxemia]Onset: 01-04-2024 Resolved: 227923-34-0373GxdmlhedIndsp lower respiratory disease (20 sources)Nodule of lung; Translations: [Solitary pulmonary nodule]Onset: 842688-53-4412IqtlxwyoCjdiy lower respiratory disease (20 sources)Dyspnea on exertion; Translations: [Other forms of dyspnea]Onset: 117018-86-5144UwflupklCigce lower respiratory disease (2 sources)Other forms of dyspnea; Translations: [Other forms of dyspnea]Onset: 74-56-8338AzxzcuevGzyav lower respiratory disease (2 sources)Shortness of breathOnset: 75-11-6644XifwtmgkAxqoe lower respiratory disease (1 source)Solitary pulmonary nodule; Translations: [Solitary pulmonary nodule] Onset: 79-31-7677RyksvmwfDxybs nervous system disorders (20 sources)Lesion of ulnar nerve, left upper limb; Translations: [Lesion of ulnar nerve]Onset: 11-04-2022 Resolved: 53-84-8893RyvkgwgKcwmk nervous system disorders (20 sources)Carpal tunnel syndrome of left wrist; Translations: [Carpal tunnel syndrome, left upper limb]Onset: 04-06-2023 Resolved: 315941-19-8617NnequzmVhneh non-traumatic joint disorders (20 sources)Pain in left shoulder; Translations: [Pain in joint, shoulder region]Onset: 04-06-2023 Resolved: 866985-12-3541JhznlwskNndhx non-traumatic joint disorders (20 sources)Shoulder joint pain; Translations: [Pain in unspecified shoulder] Onset: 04-06-2021 Resolved: 840343-39-9568VmtprjqvBekjl non-traumatic joint disorders (20 sources)Pain in right knee; Translations: [Pain in joint, lower leg]Onset: 05-29-2024 Resolved: 178976-69-9825BemzwkgeIpgqg nutritional; endocrine; and metabolic disorders (20 sources)Developmental delay; Translations: [Unspecified lack of expected normal physiological development in childhood]Onset: EpisodicOther conditions (20 sources)Convulsions in the ; Translations: [Convulsions of ] Onset: 09-30-2009 Resolved: 981131-48-5819YvfylixyGkkzx screening for suspected conditions (not mental disorders or infectious disease) (20 sources)Encounter for screening for malignant neoplasm of cervix; Translations: [Encounter for screening mammogram for malignant neoplasm of breast]Onset: 12-28-5878GhihteiiUtgygdrkf; thrombophlebitis and thromboembolism (1 source)Personal history of other venous thrombosis and embolism; Translations: [PERS HX OTH VENOUS THROMBOSIS AND EMBO]Onset: 47-19-9921Ayriodav Pneumonia (except that caused by tuberculosis or sexually transmitted disease) (20 sources)Infective pneumonia; Translations: [Pneumonia, unspecified organism] Onset: 09-29-2021 Resolved: 72-11-9369KzbgecczEdvufmxsb by other medications and drugs (1 source)Poisoning by insulin and oral hypoglycemic [antidiabetic] drugs, accidental (unintentional), initial encounter; Translations: [POISON INSULIN ORAL HG RX ACC INIT]Onset: 35-44-6283QtvymieaYjuefpphz heart disease (1 source)Personal history of pulmonary embolism; Translations: [PERSONAL HISTORY PULMONARY EMBOLISM]Onset: 98-55-5953DnvpzjzqSigsemkw codes; unclassified (1 source)Acquired absence of other specified parts of digestive tract; Translations: [ACQ ABSENCE OTH PART DIGESTV TRACT]Onset: 09-28-3531Ihjrdofc Residual codes; unclassified (20 sources)Edema; Translations: [Edema, unspecified]Onset: EpisodicResidual codes; unclassified (2 sources)Edema, generalized; Translations: [Generalized edema]05-13-2024 EpisodicUrinary tract infections (20 sources)Acute cystitis; Translations: [Acute cystitis without hematuria] Onset: 454078-19-9251YdeecwbeDzhta infection (20 sources)Genital warts; Translations: [Anogenital (venereal) warts]Onset: 512317-74-7822Oxdlxdtc Results Test NameValueInterpretationReference RangeFacilityCapillary blood glucose measurement by glucometer (mass/volume)Ordered By: Randall Soria on 99-51-8489Sgtffbf [Mass/Vol]160 mg/dLNoTriHealth [facility]ull[facility] Comment on above:Random Glucose Reference Range is [...] Point of Care testing ,Glucose Poct Glucometerson 69-21-4436Yggtbhq5Ugw5: Cleaned [facility] Physician GroupComment on above:Result Comment: PERFORMED BY: [address] [place] [address] [place] [address] PATHOLOGIST POLITICAL SCIENTIST CHANDA ROBERTS M.D.Performed By: #### GLULS #### Point of Care testing ,No Panel InformationOrdered By: Randall Soria on 93-54-4267Rcaxpbo Glucose CommentGlu2: cleaned [facility] HospitalALL BASIC METABOLIC PANELon 63-99-9467Vjnzq gap [Moles/Vol]7.9 mmol/LNOMS HealthcareCalcium [Mass/Vol]9 mg/dL8.5 - 10.1 mg/dLNOAZ HealthcareChloride [Moles/Vol]98 mmol/L98 - 107 mmol/LNOMS HealthcareCO2 [Moles/Vol]30.6 mmol/L21.0 - 32.0 mmol/LNOMS HealthcareCreatinine [Mass/Vol]0.94 mg/dL0.55 - 1.02 mg/dLNOExcelsior Springs Medical Center GFR/1.73 sq M.predicted CKD-EPI (S/P/Bld) [Vol rate/Area]>60>=60 mL/min/1.73m 2 NOMS HealthcareGlucose [Mass/Vol]393 mg/jSQqzy83 - 106 mg/dLNOExcelsior Springs Medical Center Interpretation and review of laboratory resultsAbnormalNOAZ HealthcarePotassium [Moles/Vol]4.5 mmol/L3.5 - 5.1 mmol/LNOMS HealthcareSodium [Moles/Vol]132 mmol/L Knr287 - 145 mmol/LNOMS HealthcareTBH EGFR-NON AF GERMAN>60>=60 mL/min/1.73m 2 NOMS HealthcareUrea nitrogen [Mass/Vol]25 mg/dLHigh7.0 - 18.0 mg/dLNOMS HealthcareUrea nitrogen/Creatinine [Mass ratio]26.6 mg/mgNOMS Healthcare CLINISYNCNOMS HealthcareECG 12-LEADon 16-29-3245[place] [address] Electrocardiograph Report Signed Patient: CARISSA SANTOS MR#: [id number] : 1980 Acct:[id number] Age/Sex: 44 / F ADM Date: 06/05/25 Loc: [facility] Attending Dr: Feliz Benz D.O. Ordering Physician: Feliz Benz D.O. 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 Measurements Intervals Venus Rate: 85 P: 62 TN: 151 QRS: 109 QRSD: 89 T: 82 [...] Signed By: 06/05/25 1148 DD/ 0656 TD/TT: Manual Winder:TBHRadiology, Radiologist, - 06/05/2025 [facility] [place] [id number] Electrocardiograph Report Signed Patient: CARISSA SANTOS MR#: [id number] : 1980 Acct:[id number] Age/Sex: 44 / F ADM Date: 06/05/25 Loc: PST Attending Dr: Feliz Benz D.O. Ordering Physician: Feliz Benz D.O. 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 Measurements Intervals Venus Rate: 85 P: 62 TN: 151 QRS: 109 QRSD: 89 T: 82 [...] Signed By: 06/05/25 1148 DD/ 0656 TD/TT: Manual Winder: CHELSEY HealthcareRadiology Study observation (narrative)[facility] HealthcareECG 12-LEAD Ordered By: Radiologist Radiology on 87-37-8522[facility] Work Phone: Glomerular filtration rate (GFR) estimation in non- AmericanOrdered By: Shama Medina on 42-36-5062MEP/1.73 sq M.predicted among non-blacks MDRD (S/P/Bld) [Vol rate/Area]mL/min/{1.73_m2}>=60 mL/min/1.73m 2FParkview HealthLaboratory - Chemistry and Chemistry - challengeOrdered By: Shama Medina on 66-20-6708Ngkheva [Mass/Vol]9.0 mg/dL 8.5-10.1FParkview HealthChloride [Moles/Vol]98 mmol/L98-107 [facility] HospitalCO2 [Moles/Vol]30.6 mmol/L21.0-32.0[facility] HospitalCreatinine [Mass/Vol]0.94 mg/dL0.55-1.02St. [facility] HospitalGFR/1.73 sq M.predicted MDRD (S/P/Bld) [Vol rate/Area] mL/min/{1.73_m2}>=60 mL/min/1.73m 2FParkview HealthGlucose [Mass/Vol]393 mg/kEGpgk04-215GneirtwtySt. Elizabeth HospitalPotassium [Moles/Vol]4.5 mmol/L3.5-5.1FAvita Health System Bucyrus Hospitalodium [Moles/Vol] 132 mmol/QQrv841-028FfycrnadzSt. Elizabeth HospitalUrea nitrogen [Mass/Vol] 25.0 mg/dLHigh7.0-18.0St. [facility] HospitalUrea nitrogen/Creatinine [Mass ratio]26.6 mg/mgMercy Health Willard Hospitalerum or plasma anion gap determinationOrdered By: Shama Medina on 38-61-0865Tfsbm gap [Moles/Vol]7.9 mmol/LFParkview HealthCapillary blood glucose measurement by glucometer (mass/volume)Ordered By: Randall Soria on 35-98-2083Ixfrluw [Mass/Vol]99 mg/dLNoTriHealth McCullough-Hyde Memorial HospitalComment on above:Random Glucose Reference Range is dependent [...] Point of Care testing ,Glucose Poct Glucometerson 13-52-2757Qflvyus0Vix1: Cleaned [facility] Physician GroupComment on above:Result Comment: PERFORMED BY: [place] [address] PATHOLOGIST POLITICAL SCIENTIST CHANDA ROBERTS M.D.Performed By: #### GLULS #### Point of Care testing ,No Panel InformationOrdered By: Randall Soria on 84-35-7150Ivqqrhi Glucose CommentGlu2: cleaned [facility] HospitalALL CBC WITH AUTO DIFFon 21-42-5327FZSPFUWUQ ABSOLUTE RUVO5MEDD HealthcareBasophils/100 WBC (Bld) 0.3 %0.2 - 2.0 %NOMS HealthcareEosinophils/100 WBC (Bld)1.2 %0.9 - 7.0 %NOMCedar County Memorial HospitalErythrocyte distribution width (RBC) [Ratio]12.7 %11.0 - 15.0 %NOMCedar County Memorial HospitalHematocrit (Bld) [Volume fraction]41.8 %36.0 - 48.0 %[facility] Hemoglobin (Bld) [Mass/Vol]13.2 g/dL12.0 - 16.0 g/dLNOExcelsior Springs Medical CenterIMMATURE GRANULOCYTES ABS AUTO0.01NOMS HealthcareImmature granulocytes/100 WBC (Bld)0.1 % 0.0 - 0.5 %[facility] HospitalInterpretation and review of laboratory results AbnormalNOExcelsior Springs Medical CenterLYMPHOCYTES ABSOLUTE AUTO2.5NOM[facility] Healthcare Lymphocytes/100 WBC (Bld)33.5 %20.5 - 60.0 %[facility] HealthcareH (RBC) [Entitic mass]28.8 pg26.7 - 34.0 pgNOCass Medical CenterHC (RBC) [Mass/Vol]31.6 g/dL29.9 - 35.2 g/dLUniversity of Missouri Children's HospitalMCV (RBC) [Entitic vol]91.1 fL81.0 - 99.0 fLNOAZ HealthcareMONOCYTES ABSOLUTE AUTO0.4NOMS HealthcareMonocytes/100 WBC (Bld)5.4 % 1.7 - 12.0 %NOM HealthcareNEUTROPHILS ABSOLUTE AUTO4.4NOM[facility] Healthcare Neutrophils/100 WBC (Bld)59.5 %43.0 - 75.0 %NOMCedar County Memorial HospitalPlatelet mean volume (Bld) [Entitic vol]9.3 fLLow9.5 - 13.5 fLNORipley County Memorial Hospital EO #0.1NOMS HealthcareTB [id number] [facility] HospitalTB RBC4.59NOMS HealthcareTB WBC7.4NOMS HealthcareCLINISYNCNOMS HealthcareUS PELVIS W/ TRANSVAGINALon 75-87-90[address] [address] Ultrasound Report Signed Patient: CARISSA SANTOS MR#: [id number] : 1980 Acct:[id number] Age/Sex: 44 / F ADM Date: 04/24/25 Loc: US Attending Dr: Romana Whitmore Ordering Physician: Romana Whitmore Date of Service: 04/24/25 Procedure(s): US pelvis w/ transvaginal Accession Number(s): [id number] cc: Romana Whitmore; Diaz Dalton M.D. [facility] [place] [id number] Patient Name: CARISSA SANTOS MRN: [id number] date: 1980 Sex: F Assigned Patient Location: Current Patient Location: [facility] Accession/Order Number: [id number] Exam Date: 04/24/2025 13:27 Report Date: 04/24/2025 [...] Torres M.D. 04/24/2025 4:10 PM Dictation Location: [place] [address] Electronically authenticated by: [id number] Y Date: 04/24/2025 16:10 Dictated By: Gallito Torres D.O. Signed By: 04/24/25 1619 DD/ 09 TD/TT: Manual Winder:NAILAHRadiologmarco antonio, Radiologist, - 04/24/2025 [place] [address] Ultrasound Report Signed Patient: CARISSA SANTOS MR#: [id number] : 1980 Acct:[id number] Age/Sex: 44 / F ADM Date: 04/24/25 Loc: [place] Attending Dr: Romana Whitmore Ordering Physician: Romana Whitmore Date of Service: 04/24/25 Procedure(s): US pelvis w/ transvaginal Accession Number(s): [id number] cc: Romana Whitmore; Diaz Dalton M.D. [facility] [place] [address] Patient Name: CARISSA SANTOS MRN: [id number] date: 1980 Sex: F Assigned Patient [facility]: [place] [facility] Access[facility]/Order Number: [id number] Exam Date: 04/24/2025 13:27 Report Date: 04/24/2025 [...] Torres M.D. 04/24/2025 4:10 PM Dictation Location: [place] [address] Electronically authenticated by: [id number] Y Date: 04/24/2025 16:10 Dictated By: Gallito Torres D.O. Signed By: 04/24/25 1619 DD/ 1610 TD/TT: Manual Winder: CHELSEY HealthcareRadiology Study observation (narrative)[facility] HealthcareUS PELVIS W/ TRANSVAGINALOrdered By: Radiologist Radiology on 82-24-5753RTNX [employer] Work Phone: MR KNEE LT WO CONon 12-27-7122[place] [id number] Magnetic Resonance Report Signed Patient: CARISSA SANTOS MR#: [id number] : 1980 Acct:[id number] Age/Sex: 44 / F ADM Date: 03/04/25 Loc: MRI Attending Dr: Shama KAPLAN Ordering Physician: Shama Medina Date of Service: 03/04/25 Procedure(s): MR knee LT wo con Accession Number(s): [id number] cc: Shama Medina; Diaz Dalton M.D. [place] [id number] Patient Name: CARISSA SANTOS MRN: [id number] date: 1980 Sex: F Assigned Patient Location: MRI Current Patient Location: MRI Accession/Order Number: [id number] Exam Date: 03/04/2025 15:15 Report Date: 03/04/2025 [...] Torres M.D. 03/04/2025 3:29 PM Dictation Location: [place] [address] Electronically authenticated by: [id number] Y Date: 03/04/2025 15:29 Dictated By: Gallito Torres D.O. Signed By: 03/04/25 1532 DD/ 1529 TD/TT: Manual Winder:NAILAHRadiology, Radiologist, - 03/04/2025 [place] [address] Magnetic Resonance Report Signed Patient: CARISSA SANTOS MR#: [id number] : 1980 Acct:[id number] Age/Sex: 44 / F ADM Date: 03/04/25 Loc: MRI Attending Dr: Shama KAPLAN Ordering Physician: Shama Medina Date of Service: 03/04/25 Procedure(s): MR knee LT wo con Accession Number(s): [id number] cc: Shama Medina; Diaz Dalton M.D. The [address] [address] Patient Name: CARISSA SANTOS MRN: [id number] date: 1980 Sex: F Assigned Patient Location: MRI Current Patient Location: MRI Accession/Order Number: [id number] Exam Date: 03/04/2025 15:15 Report Date: 03/04/2025 [...] PM Dictation Location: RADIO-PC-20 Electronically authenticated by: [id number] Y Date: 03/04/2025 15:29 Dictated By: Gallito Torres D.O. Signed By: 03/04/25 1532 DD/ 1529 TD/TT: Manual Winder: [facility] HospitalRadiology Study observation (narrative)[facility] HospitalMR KNEE LT WO CONOrdered By: Radiologist Radiology on 06-02-8082GBFCUniversity of Missouri Children's Hospital Work Phone: XR Knee - left 1 or 2 Viewson 24-94-9025Sskje result: AP and Lateral left knee: No acute fracture or dislocation [place] suspected distal femur Symmetric joint space preservation Mild effusion Impression: no acute bony process left knee.[facility] Radiology Study observation (narrative)[facility]'s HospitalHGB A1C (GLYCO-HGB)on 23-11-3442Kwolokg [Mass/Vol]321 mg/dLNormalProSeton Medical Center Harker HeightsComment on above:Performed By: #### RAMAKRISHNA, 04843-2, BMP, 84552-1, 63747-6, THYR, 32474-9 #### [facility] ([id number]) [address] [place] [address] 51545HlA4s (Bld) [Mass fraction]12.8 %High4.4-5.6Wayne HospitalComment on above:Result Comment: NOTE ADA Guidelines Result HgbA1c Normal : less than 5.7 % Prediabetes : 5.7 % to 6.4 % Diabetes : > 6.4 % Use with caution in patients with abnormal hemoglobin variants as the half-life of red blood cells and in vivo glycation rates are affected.Performed By: #### RAMAKRISHNA, 58009-4, BMP, 26921-1, 27002-9, THYR, 81754-2 #### [facility] ([id number]) [address] [place] [address] 27143OaX3r (Bld) [Mass fraction]on 45-97-2832Dpgtqun glucose Estimated from glycated hemoglobin (Bld) [Mass/Vol]321 mg/dLUniversity of [facility] Children's Hospital Comment on above:PERFORMED AT [facility] [address],[place], [place] [address]Gzgusysuihjcbw and review of laboratory resultsAbnormBeloit Memorial HospitalHemoglobin A1con 39-46-4837SsG6l (Bld) [Mass fraction] 12.8 %High4.4 - 5.6 %[facility] HealthcareComment on above:NOTE ADA Guidelines Result HgbA1c Normal : less than 5.7 % Prediabetes : 5.7 % to 6.4 % Diabetes : > 6.4 % Use with caution in patients with abnormal hemoglobin variants as the half-life of red blood cells and in vivo glycation rates are affected. Beta hydroxybutyrate [Moles/Vol]on 91-78-0344CenqVzvfurzvrxlnpdi6.14 mmol/LHigh 0.02-0.27ProSeton Medical Center Harker HeightsComment on above:Performed By: #### CBCA, 14811-3, BMP, 55222-3, 35936-3, THYR, 95019-6 #### [facility] ([id number]) [address] [place] [address] 37696PVV AND AUTO DIFFon 15-60-9210EFUDKTJK BASOPHIL0.0 X10E9/L Normal0.0-0.2ProMedica [facility] Anaheim Medical CenterComment on above:Performed By: #### CBCA, 55390-1, BMP, 98346-6, 35338-0, THYR, 74796-8 #### [facility] ([id number]) [address] [place] [address] 43860FSPKCOHY NEUTROPHIL3.5 X10E9/LNormal1.5-6.6ProSeton Medical Center Harker HeightsComment on above:Performed By: #### CBCA, 21552-2, BMP, 88512-6, 88323- 7, THYR, 69924-1 #### [facility] ([id number]) [address] [place] [address] 70332Uvnukgliq/100 WBC (Bld)0.5 %[facility] Comment on above:Performed By: #### CBCA, 24183-4, BMP, 48977-2, 48789-3, THYR, 00573-8 #### [facility] ([id number]) [address] [place] [address] 91648Ethqwncwlko (Bld) [#/Vol]0.1 10*3/uLNormal0.0-0.4Wayne HospitalComment on above:Performed By: #### CBCA, 19052-9, BMP, 61728-4, 76472-0, THYR, 59537-2 #### [facility] ([id number]) [address] [place] [address] 62299Esapgagsxao/100 WBC (Bld)0.8 %NormalWayne Hospital Comment on above:Performed By: #### CBCA, 98823-0, BMP, 91684-8, 50009-9, THYR, 51754-5 #### [facility] ([id number]) [address] [place] [address] 87082Qdgidlabghe distribution width (RBC) [Ratio]13.8 %Normal 11.5-15.0Wayne HospitalComment on above:Performed By: #### CBCA, 74401-3, BMP, 03755-2, 97378-4, THYR, 78375-2 #### [facility] ([id number]) [address] [place] [address] 26722Nzrhrmtncl (Bld) [Volume fraction]44.0 %Htuius06-76IipNyynzaSeton Medical Center Harker HeightsComment on above:Performed By: #### CBCA, 54598-9, BMP, 77637-2, 47531-8, THYR, 57103-7 #### [facility] ([id number]) [address] [place] [address] 18682Apejybrxrp (Bld) [Mass/Vol]15.1 g/sZQmhkua06.7-15.5PKing's Daughters Medical Center OhioComment on above:Performed By: #### CBCA, 64752-4, BMP, 51323-8, 22853-9, THYR, 44184-4 #### [facility] ([id number]) [address] [place] [address] 86506Cliztnsikdx (Bld) [#/Vol]2.7 10*3/uLNormal1.0-3.5PKing's Daughters Medical Center OhioComment on above:Performed By: #### CBCA, 74648-6, BMP, 59408-2, 87632-5, THYR, 30537-9 #### [facility] ([id number]) [address] [place] [address] 55571Aiajrqsxkts/100 WBC (Bld)39.7 %NormalWayne Hospital Comment on above:Performed By: #### CBCA, 99026-5, BMP, 75205-6, 47564-1, THYR, 12964-6 #### [facility] ([id number]) [address] [place] [address] 33199SIX (RBC) [Entitic mass]28.7 ouQpsqne19-72ZawMjmmfnSeton Medical Center Harker HeightsComment on above:Performed By: #### CBCA, 35133-1, BMP, 67380-4, 98787- 7, THYR, 83667-8 #### [facility] ([id number]) [address] [place] [address] 71336DKZS (RBC) [Mass/Vol]34.4 g/gEXrmhxa14-55AikSlwlesSeton Medical Center Harker HeightsComment on above:Performed By: #### CBCA, 77287-4, BMP, 70543-0, 47516- 7, THYR, 43853-5 #### [facility] ([id number]) [address] [place] [address] 69541BYH (RBC) [Entitic vol]84 vIMeijrq88-754YssHsqfrt Fremont HospitalComment on above:Performed By: #### CBCA, 82397-5, BMP, 00707-2, 98575- 7, THYR, 71037-1 #### [facility] ([id number]) [address] [place] [address] 03859Wveanjrrd (Bld) [#/Vol]0.4 10*3/uLNormal0-0.9Wayne HospitalComment on above:Performed By: #### CBCA, 35235-1, BMP, 33103-1, 60056- 7, THYR, 33237-5 #### [facility] ([id number]) [address] [place] [address] 49822Mpfmpraru/100 WBC (Bld)6.5 %NormalWayne Hospital Comment on above:Performed By: #### CBCA, 26967-5, BMP, 28092-9, 76705-2, THYR, 07745-1 #### [facility] ([id number]) [address] [place] [address] 17160Fhxbbicbpzg/100 WBC (Bld)52.5 %[facility] Comment on above:Performed By: #### CBCA, 05649-1, BMP, 53338-6, 24259-6, THYR, 47483-4 #### [facility] ([id number]) [address] [place] [address] 56888Pupydlpm mean volume (Bld) [Entitic vol]7.8 fLNormal7-12 ProMedicFremont Memorial HospitalComment on above:Performed By: #### CBCA, 77409-4, BMP, 23834-0, 42053-9, THYR, 57725-2 #### [facility] ([id number]) [address] [place] [address] 71763Gqtguwssh (Bld) [#/Vol]211 10*3/mXArfior471-942UpjRahuig Fremont HospitalComment on above:Performed By: #### CBCA, 62647-5, BMP, 87838-5, 74849-7, THYR, 26247-0 #### [facility] ([id number]) [address] [place] [address] 00413ESX COUNT5.26 X10E12/LHigh3.80-5.20[facility] Comment on above:Performed By: #### RAMAKRISHNA, 86501-8, BMP, 57022-5, 15086-5, THYR, 50166-2 #### [facility] ([id number]) [address] [place] [address] 45400RUJ (Bld) [#/Vol]6.7 10*3/uLNormal4.0-11.0ProSeton Medical Center Harker HeightsComment on above:Performed By: #### CBCA, 87079-0, BMP, 48040-3, 51377- 7, THYR, 96529-6 #### [facility] ([id number]) [address] [place] [address] 39433IYOVWILQBLJEW METABOLIC PANELon 39-88-9227Jdlsovh [Mass/Vol]4.1 g/dLNormal3.2-5.3ProMedChildren's Hospital and Health CenterComment on above:Performed By: #### CBCA, 30014-5, BMP, 39026-2, 24395-3, THYR, 26175-2 #### [facility] ([id number]) [address] [place] [address] 17043ALX [Catalytic activity/Vol]82 U/IFvsvqy06-754WvjGqsoncSeton Medical Center Harker HeightsComment on above:Performed By: #### CBCA, 96250-9, BMP, 51333-2, 91932- 7, THYR, 43992-7 #### [facility] ([id number]) [address] [place] [address] 67748PYO [Catalytic activity/Vol]35 U/LHigh0-31PKing's Daughters Medical Center OhioComment on above:Performed By: #### RAMAKRISHNA, 48575-8, BMP, 42564-5, 42616- 7, THYR, 40496-9 #### [facility] ([id number]) [address] [place] [address] 74946Enovp gap [Moles/Vol]9 mmol/LNormal5-15ProSeton Medical Center Harker HeightsComment on above:Performed By: #### RAMAKRISHNA, 58693-1, BMP, 81752-9, 16160- 7, THYR, 30770-8 #### [facility] ([id number]) [address] [place] [address] 49690JUA [Catalytic activity/Vol]27 U/LNormal0-41Wayne HospitalComment on above:Performed By: #### RAMAKRISHNA, 20248-7, BMP, 58672-3, 73573- 7, THYR, 78958-7 #### [facility] ([id number]) [address] [place] [address] 77876Fgmdpglfg [Mass/Vol]0.4 mg/dLNormal0.3-1.2PKing's Daughters Medical Center OhioComment on above:Performed By: #### RAMAKRISHNA, 86419-1, BMP, 32589-9, 65739- 7, THYR, 24861-7 #### [facility] ([id number]) [address] [place] [address] 41456Pitxzrp [Mass/Vol]9.2 mg/dLNormal8.5-10.5PKing's Daughters Medical Center OhioComment on above:Performed By: #### ARIANA, 93615-0, BMP, 92379-5, 89986- 7, THYR, 68125-3 #### [facility] ([id number]) [address] [place] [address] 71636Nnjmlmth [Moles/Vol]101 mmol/AEeyevk41-781LcpKicuhcWayne HospitalComment on above:Performed By: #### RAMAKRISHNA, 33399-4, BMP, 80499-1, 22699- 7, THYR, 24879-0 #### [facility] ([id number]) [address] [place] [address] 94776KH5 [Moles/Vol]26 mmol/VFxcoph91-99BdtBprxdbKing's Daughters Medical Center Ohio Comment on above:Performed By: #### RAMAKRISHNA, 52768-9, BMP, 96720-8, 28113-4, THYR, 57842-9 #### [facility] ([id number]) [address] [place] [address] 55963Azeiyuyivu [Mass/Vol]1.06 mg/dLHigh0.40-1.00Wayne HospitalComment on above:Result Comment: METHOD TRACEABLE TO IDMS STANDARD Performed By: #### RAMAKRISHNA, 20771-9, BMP, 15329-4, 77588-2, THYR, 36836-7 #### [facility] ([id number]) [address] [place] [address] 45238MIA/1.73 sq M.predicted among non-blacks MDRD (S/P/Bld) [Vol rate/Area]66 mL/min/{1.73_m2}Normal>59Wayne HospitalComment on above:Result Comment: Reported eGFR is based on the CKD-EPI 2020 equation that does not use a race coefficient.Performed By: #### RAMAKRISHNA, 15736-1, BMP, 78662-2, 01313-4, THYR, 79571-7 #### [facility] ([id number]) [address] [place] [address] 16282Avnkrgr [Mass/Vol]148 mg/dAPowl67-97LobMeistoWayne Hospital Comment on above:Performed By: #### RAMAKRISHNA, 16282-7, BMP, 92701-2, 02451-8, THYR, 37650-9 #### [facility] ([id number]) [address] [place] [address], [place] [address]Uemzghaqd [Moles/Vol]3.6 mmol/LNormal3.5-5.0ProSeton Medical Center Harker HeightsComment on above:Performed By: #### RAMAKRISHNA, 03089-1, BMP, 39506-8, 14077- 7, THYR, 69632-6 #### [facility] ([id number]) [address] [place] [address] 57463Cirsmlj [Mass/Vol]7.7 g/dLNormal6.0-8.0ProSeton Medical Center Harker HeightsComment on above:Performed By: #### RAMAKRISHNA, 97197-4, BMP, 87820-7, 15346- 7, THYR, 46017-5 #### [facility] ([id number]) [address] [place] [address], [place] [address]Blymse [Moles/Vol]136 mmol/UCvgles833-780CmyCdftqq Fremont HospitalComment on above:Performed By: #### RAMAKRISHNA, 33136-5, BMP, 82061-3, 12516- 7, THYR, 41729-2 #### [facility] ([id number]) [address] [place] [address], [place] [address]Toqf nitrogen [Mass/Vol]28 mg/dLHigh5-23ProSet[facility] Medical Center Harker HeightsComment on above:Performed By: #### RAMAKRISHNA, 42169-6, BMP, 84166-2, 84659- 7, THYR, 56246-7 #### [facility] ([id number]) [address] [place] [address], [place] [address]OWUKXKpt 76-97-9856Bvvwky [Catalytic activity/Vol]24 U/LNormal 17-40ProSet[facility] Medical Center Harker HeightsComment on above:Performed By: #### RAMAKRISHNA, 96687- 5, BMP, 40119-1, 14608-6, THYR, 71134-8 #### [facility] ([id number]) [address] [place] [address] 50821JNL MACROSCOPIC NURon 14-71-9992OMPNKOWNM NURNegativeNormalNEG [facility] Anaheim Medical CenterComment on above:Performed By: #### RAMAKRISHNA, 81912-2, BMP, 20625-5, 32378-3, THYR, 37984-9 #### [facility] ([id number]) [address] [place] [address] 01791SRFXP/HGB NURTraceAbnormalNEGWayne HospitalComment on above:Performed By: #### RAMAKRISHNA, 38155-9, BMP, 79945-5, 49830-4, THYR, 11676-4 #### [facility] ([id number]) [address] [place] [address] [place] [address]QLERXOL SMITHA>=1000AbnormalNEGWayne HospitalComment on above:Performed By: #### RAMAKRISHNA, 26617-3, BMP, 19354-1, 36053-3, THYR, 90248-3 #### [facility] ([id number]) [address] [place] [address] [place] [address]ZMKLYFO NURNegativeNormalNEGProSeton Medical Center Harker HeightsComment on above:Performed By: #### RAMAKRISHNA, 91872-6, BMP, 93747-1, 72545-9, THYR, 31315-4 #### [facility] ([id number]) [address] [place] [address] [place] [address]NUAJEKGLX ESTERASE NURNegativeNormalNEGWayne HospitalComment on above:Performed By: #### CBCA, 30602-0, BMP, 75132-6, 14739- 7, THYR, 55581-5 #### [facility] ([id number]) [address] [place] [address] 52342HYGBQMM NURNegativeNormalNEGWayne HospitalComment on above:Performed By: #### CBCA, 65821-8, BMP, 34249-8, 25132-3, THYR, 14918-7 #### [facility] ([id number]) [address] [place] [address] 04242EL NUR5.2Fjakpb4.0-8.5PKing's Daughters Medical Center OhioComment on above:Performed By: #### CBCA, 48413-5, BMP, 10029-3, 94612-8, THYR, 74837-2 #### [facility] ([id number]) [address] [place] [address] [place] [address]RGBHWGM NURNegativeNormalNEGProSeton Medical Center Harker HeightsComment on above:Performed By: #### CBCA, 34891-6, BMP, 18934-6, 10863-1, THYR, 92178-9 #### [facility] ([id number]) [address] [place] [address] 38443FBUYSNUI GRAVITY NUR1.231Wsnpyu2.003-1.035ProSeton Medical Center Harker HeightsComment on above:Performed By: #### CBCA, 20411-7, BMP, 00184-4, 66271- 7, THYR, 57613-9 #### [facility] ([id number]) [address] [place] [address] 69974IXHGVGHYSYBS NUR0.2 eu/dLNormal<1.1PKing's Daughters [facility] Comment on above:Performed By: #### CBCA, 70264-8, BMP, 34897-8, 38205-9, THYR, 74865-5 #### [facility] ([id number]) [address] [place] [address] 27608HWCWRN BLOOD GASon 20-38-9242PPOUJ'S TESTNormalProSeton Medical Center Harker HeightsComment on above:Performed By: #### CBCA, 26879-8, BMP, 02357-2, 77206-0, THYR, 63108-5 #### [facility] ([id number]) [address] [place] [address] 62836Fljq excess Calc (Bld) [Moles/Vol]2.0 mmol/LNormal0.0-2.0 ProMKaiser Foundation HospitalComment on above:Performed By: #### CBCDesire, 58069-3, BMP, 80841-8, 29827-8, THYR, 74491-9 #### [facility] ([id number]) [address] [place] [address] 35849Cani irvbfrjihfc15.6 [degF]Uugdzj76.0[facility] Comment on above:Performed By: #### CBCA, 84104-3, BMP, 60539-6, 19900-2, THYR, 23543-8 #### [facility] ([id number]) [address] [place] [address] 90065XBL1 (Bld) [Moles/Vol]27.7 mmol/LHigh20.0-24.0Wayne HospitalComment on above:Performed By: #### CBCA, 15462-8, BMP, 23913-8, 98682- 7, THYR, 12834-5 #### [facility] ([id number]) [address] [place] [address] 65791Xhwccu saturation in Blood48.0 %Low>80.0ProSeton Medical Center Harker HeightsComment on above:Performed By: #### CBCA, 07375-6, BMP, 56426-4, 84497- 7, THYR, 60683-5 #### [facility] ([id number]) [address] [place] [address], [place] [address]AALYYG SOURCERoomAirNormalWayne HospitalComment on above:Performed By: #### CBCA, 30243-4, BMP, 30575-5, 07403-3, THYR, 92960-7 #### [facility] ([id number]) [address] [place] [address], [place] [address]KRB5, XGVWWC32.1 KCSNArnwih82-76UeqElanpoWayne Hospital Comment on above:Performed By: #### CBCA, 03242-2, BMP, 01553-1, 85863-6, THYR, 53151-4 #### [facility] ([id number]) [address] [place] [address], [place] [address]BV, VENOUS7.052Nagyjf2.320-7.420[facility] Comment on above:Performed By: #### CBCA, 60640-9, BMP, 97631-5, 34726-1, THYR, 51571-0 #### [facility] ([id number]) [address] [place] [address], [place] [address]BR4, ZBTGJD92 JYTTXil00-53YsgTtmxakWayne HospitalComment on above:Performed By: #### ARIANA, 54474-0, BMP, 74653-9, 28428-5, THYR, 33144-9 #### [facility] ([id number]) [address] [place] [address], [place] [address]MIGJPU SITEN/ANormalWayne HospitalComment on above: Performed By: #### CBCA, 04766-1, BMP, 12782-9, 79296-0, THYR, 46314-8 #### [facility] ([id number]) [address] [place] [address], [place] [address]DNEHRC TYPEVENOUSNormalWayne HospitalComment on above:Performed By: #### CBCA, 92174-5, BMP, 71898-4, 46478-5, THYR, 02855-5 #### [facility] ([id number]) [address] [place] [address], [place], [place] [address]Zxzshsbp Pathologyon 02-25-4593Vpabljab PathologyNormal Wayne HospitalComment on above:Result Comment: [facility] [address] [place] [address] Surgical Pathology Consultation Patient Name:CARISSA SANTOS:1980 (Age: 44)Gender:FTaken:09/12/2024Reported:09/17/2024Physician(s):Aliya Solorzano D.O. ([phone])Copy To: Rec. #:[id number]: #[id number] Final Pathologic Diagnosis Hepatic flexure polyp, biopsies: Fecal material, nondiagnostic. No colonic tissue present. Report Electronically Signed Out ssi/09/17/2024Surufina Lara M.D. Interpretation performed at [facility], [address] [place] [address], License number: [id number]. Clinical History Screening Gross Description Received in formalin labeled adam SANTOS are pale-mims soft tissue fragments admixed with friable bits two material, 0.5 x 0.2 x 0.1 cm in aggregate. The specimen is filtered and entirely submitted in a single cassette. (1, ns, [id number],m4) DM. dm/09/13/2024WAK Specimen(s) Received Hepatic flexure polyp Fee Codes(s): 1; 30332PUW,APTIMA HPV,AGE GDLNon 03-59-3953WFO GDLN ACOG TESTINGNote.NOMS HealthcareComment on above:TESTS RESULT FLAG UNITS REF RANGE LAB Clinician Provided Cytology Information Source.............Cervix;Endocervix No. of containers..01 ThinPrep Vial Age Elizabeth VALDIVIA Keyla... FLAG LEGEND: L-Low Normal,H-High Normal,LL-Alert Low,HH-Alert High <-Panic Low,>-Panic High,A-Abnormal,AA-Critical Abnormal Performed at: 01 =[address] [address] Caroline Moore MD, HPV APTIMANegativeNegativeNOMS HealthcareComment on above:This nucleic acid amplification test detects fourteen high- risk HPV types (16,18,31,33,35,39,45,51,52,56,58,59,66,68) without differentiation. Performed at: =[address] [id number] Corporate Physical Security Supervisor: Caroline Moore MD, Phone: [phone] Performed at: - [address] [id number] Corporate Physical Security Supervisor: Caroline Moore MD, Phone: [phone] IGP, APTIMA HPV, RFX 16/18,45Note.NOMS HealthcareComment on above:TESTS RESULT FLAG UNITS REF RANGE LAB DIAGNOSIS: 02 NEGATIVE FOR INTRAEPITHELIAL LESION OR MALIGNANCY. Specimen adequacy: 02 Satisfactory for evaluation. Endocervical and/or squamous metaplastic cells (endocervical component) are present. Performed by: 02 Steve Saravia, Kick Press Operator (ASCP) . 02 Note: Note 02 The [...] Abnormal Performed at: 02 [facility] [address] [place] [address] Caroline Moore MD, BRUSH-SPATULA CERVIX ENDOCERVIX CLINISYNCNOMS HealthcareBASIC METABOLIC PANLon 60-27-0993Jmpmc gap [Moles/Vol]8 mmol/LNormal5-15[facility] Medical CenterComment on above:Performed By: #### CBCA, 42559-0, BMP, 47546-1, 89592-6, THYR, 92498-5 #### [facility] ([id number]) [address] [place] [address], FIRST FLOOR [place], [place] [address]Tachzmy [Mass/Vol]9.9 mg/dLNormal8.5-10.5PKing's Daughters Medical Center OhioComment on above:Performed By: #### RAMAKRISHNA, 57325-6, BMP, 19905-5, 16153- 7, THYR, 38596-5 #### [facility] ([id number]) [address] [place] [address] 69768Dicnwodh [Moles/Vol]92 mmol/KDeb67-403DpjHhdnodSeton Medical Center Harker HeightsComment on above:Performed By: #### RAMAKRISHNA, 73464-5, BMP, 15064-6, 85689- 7, THYR, 67224-7 #### [facility] ([id number]) [address] [place] [address] 43552YH2 [Moles/Vol]32 mmol/FVbzato56-14VtsIikuheKing's Daughters Medical Center [place] Comment on above:Performed By: #### RAMAKRISHNA, 46124-0, BMP, 09868-2, 35083-6, THYR, 18877-7 #### [facility] ([id number]) [address] [place] [address] 79559Btkuaoktrs [Mass/Vol]0.94 mg/dLNormal0.40-1.00ProSeton Medical Center Harker HeightsComment on above:Result Comment: METHOD TRACEABLE TO IDMS STANDARD Performed By: #### RAMAKRISHNA, 70692-5, BMP, 95038-6, 45933-4, THYR, 75466-4 #### [facility] ([id number]) [address] [place] [address] 56243SFK/1.73 sq M.predicted among non-blacks MDRD (S/P/Bld) [Vol rate/Area]76 mL/min/{1.73_m2}Normal>59ProSeton Medical Center Harker HeightsComment on above:Result Comment: Reported eGFR is based on the CKD-EPI 2020 equation that does not use a race coefficient.Performed By: #### RAMAKRISHNA, 17298-8, BMP, 84597-1, 76550-0, THYR, 92796-0 #### [facility] ([id number]) [address] [place] [address], [place] [address]Zpxmwrx [Mass/Vol]577 mg/dLCritically imqs83-71ZarJitsdySeton Medical Center Harker HeightsComment on above:Performed By: #### CBCA, 64875-6, BMP, 38855-3, 30629-5, THYR, 31586-3 #### [facility] ([id number]) [address] [place] [address] 77303Dxsyxsofr [Moles/Vol]4.7 mmol/LNormal3.5-5.0ProSeton Medical Center Harker HeightsComment on above:Performed By: #### CBCDesire, 10260-3, BMP, 57202-8, 87573- 7, THYR, 08120-4 #### [facility] ([id number]) [address] [place] [address] 39453Qfqwlr [Moles/Vol]132 mmol/BSzq466-215UsrGnffatSeton Medical Center Harker HeightsComment on above:Performed By: #### CBCDesire, 12518-2, BMP, 18287-1, 18216- 7, THYR, 76539-6 #### [facility] ([id number]) [address] [place] [address] 68372Ndva nitrogen [Mass/Vol]25 mg/dLHigh5-23ProSeton Medical Center Harker HeightsComment on above:Performed By: #### CBCA, 26443-7, BMP, 66139-4, 04610- 7, THYR, 70245-6 #### [facility] ([id number]) [address] [place] [address] 87223OJP AND AUTO DIFFon 91-19-2654QOXAEGIK BASOPHIL0.0 X10E9/L Normal0.0-0.2ProMedChildren's Hospital and Health CenterComment on above:Performed By: #### CBCA, 70088-1, BMP, 13563-4, 88936-7, THYR, 80689-9 #### [facility] ([id number]) [address] [place] [address] 96965HPPRAKPC NEUTROPHIL7.2 X10E9/LHigh1.5-6.6Wayne HospitalComment on above:Performed By: #### CBCA, 21572-0, BMP, 77682-1, 39480- 7, THYR, 80670-8 #### [facility] ([id number]) [address] [place] [address] 39751Vvgxqvhjm/100 WBC (Bld)0.2 %NormalWayne Hospital Comment on above:Performed By: #### CBCA, 91828-8, BMP, 61761-5, 56561-8, THYR, 00331-9 #### [facility] ([id number]) [address] [place] [address] 48975Syazeichtlr (Bld) [#/Vol]0.0 10*3/uLNormal0.0-0.4Wayne HospitalComment on above:Performed By: #### CBCA, 02506-2, BMP, 67066-2, 71759-9, THYR, 71886-4 #### [facility] ([id number]) [address] [place] [address] 62962Qogwfgroepp/100 WBC (Bld)0.2 %NormalWayne Hospital Comment on above:Performed By: #### CBCA, 18777-0, BMP, 42013-6, 44779-2, THYR, 75178-4 #### [facility] ([id number]) [address] [place] [address] 52856Yotegezvyun distribution width (RBC) [Ratio]13.5 %Normal 11.5-15.0ProSet[facility] Medical Center Harker HeightsComment on above:Performed By: #### CBCA, 07517-9, BMP, 35107-6, 25283-2, THYR, 93270-9 #### [facility] ([id number]) [address] [place] [address] 02296Skglkzlssq (Bld) [Volume fraction]33.7 %Qft43-88BblZvdfmrWayne HospitalComment on above:Performed By: #### CBCA, 26472-5, BMP, 13296-6, 88682-7, THYR, 21223-0 #### [facility] ([id number]) [address] [place] [address] 89959Lkirbcvhcq (Bld) [Mass/Vol]11.1 g/dLLow11.7-15.5PKing's Daughters Medical Center OhioComment on above:Performed By: #### CBCA, 73030-1, BMP, 36565-5, 62177-4, THYR, 87222-3 #### [facility] ([id number]) [address] [place] [address] 08883Ajpyuibeoyk (Bld) [#/Vol]2.2 10*3/uLNormal1.0-3.5PKing's Daughters Medical Center OhioComment on above:Performed By: #### CBCA, 75485-5, BMP, 79751-7, 59474-7, THYR, 51195-8 #### [facility] ([id number]) [address] [place] [address] 10565Elptqwtjzdz/100 WBC (Bld)21.9 %NormalProSeton Medical Center [facility] Heights Comment on above:Performed By: #### CBCA, 72823-7, BMP, 07751-0, 33232-3, THYR, 83701-5 #### [facility] ([id number]) [address] [place] [address] 57816IJD (RBC) [Entitic mass]28.7 igHkzqkw94-36QurRguhbkSeton Medical Center Harker HeightsComment on above:Performed By: #### CBCA, 13531-9, BMP, 82432-0, 15066- 7, THYR, 12426-5 #### [facility] ([id number]) [address] [place] [address] 77530WIYL (RBC) [Mass/Vol]32.9 g/iCZybdhj11-60DujXcirsxWayne HospitalComment on above:Performed By: #### CBCA, 31822-8, BMP, 34794-6, 70092- 7, THYR, 31731-5 #### [facility] ([id number]) [address] [place] [address] 61880ZHJ (RBC) [Entitic vol]87 vGUsgbge18-591OynEwqnejWayne HospitalComment on above:Performed By: #### CBCA, 84408-5, BMP, 73375-6, 24230- 7, THYR, 93124-2 #### [facility] ([id number]) [address] [place] [address] 92124Btwgcuhpo (Bld) [#/Vol]0.5 10*3/uLNormal0-0.9Wayne HospitalComment on above:Performed By: #### CBCA, 78960-8, BMP, 63496-8, 04696- 7, THYR, 21158-4 #### [facility] ([id number]) [address] [place] [address] 72579Inrgjladq/100 WBC (Bld)5.4 %NormalWayne Hospital Comment on above:Performed By: #### CBCA, 78236-2, BMP, 09949-1, 32718-5, THYR, 27741-1 #### [facility] ([id number]) [address] [place] [address] 35865Bjmpgyhqxke/100 WBC (Bld)72.3 %NormalWayne Hospital Comment on above:Performed By: #### CBCA, 91179-4, BMP, 35171-7, 44024-6, THYR, 15340-5 #### [facility] ([id number]) [address] [place] [address] 45246Odzzpcvj mean volume (Bld) [Entitic vol]7.4 fLNormal7-12 ProMKaiser Foundation HospitalComment on above:Performed By: #### CBCA, 78547-6, BMP, 90553-9, 88529-1, THYR, 92614-1 #### [facility] ([id number]) [address] [place] [address] 54096Ysvvwgwlo (Bld) [#/Vol]190 10*3/tGXrcsbz278-953CjbWoluse Fremont HospitalComment on above:Performed By: #### CBCA, 17145-8, BMP, 33694-1, 64117-1, THYR, 36160-6 #### [facility] ([id number]) [address] [place] [address] 97266TJV COUNT3.86 X10E12/LNormal3.80-5.20[facility] Comment on above:Performed By: #### CBCA, 85507-3, BMP, 45063-5, 17242-4, THYR, 36610-6 #### [facility] ([id number]) [address] [place] [address] 16791TON (Bld) [#/Vol]10.0 10*3/uLNormal4.0-11.0Wayne HospitalComment on above:Performed By: #### CBCA, 04148-9, BMP, 01551-8, 43884- 7, THYR, 36062-7 #### [facility] ([id number]) [address] [place] [address] 45334DMGVTRDODTXMI METABOLIC PANELon 36-94-2541Ferkyqz [Mass/Vol]3.3 g/dLNormal3.2-5.3PKing's Daughters Medical Center OhioComment on above:Performed By: #### ARIANA, 71694-6, BMP, 30410-4, 18704-1, THYR, 80458-1 #### [facility] ([id number]) [address] [place] [address], [place] [address]WPF [Catalytic activity/Vol]66 U/NRvuazl48-523XaiDglcqcSeton Medical Center Harker HeightsComment on above:Performed By: #### RAMAKRISHNA, 79919-6, BMP, 08017-1, 01419- 7, THYR, 28002-4 #### [facility] ([id number]) [address] [place] [address], [place] [address]IFL [Catalytic activity/Vol]16 U/LNormal0-31PKing's Daughters Medical Center OhioComment on above:Performed By: #### RAMAKRISHNA, 27422-1, BMP, 87610-2, 62766- 7, THYR, 32289-3 #### [facility] ([id number]) [address] [place] [address], [place] [address]Pbnga gap [Moles/Vol]9 mmol/LNormal5-15ProSet[facility] Medical Center Harker HeightsComment on above:Performed By: #### RAMAKRISHNA, 10514-2, BMP, 05056-3, 70189- 7, THYR, 28479-3 #### [facility] ([id number]) [address] [place] [address], [place] [address]MDJ [Catalytic activity/Vol]11 U/LNormal0-41ProSet[facility] Medical Center Harker HeightsComment on above:Performed By: #### ARIANA, 53257-5, BMP, 48293-8, 00366- 7, THYR, 48515-1 #### [facility] ([id number]) [address] [place] [address], [place] [address]Rzacbzzxl [Mass/Vol]0.3 mg/dLNormal0.3-1.2PKing's Daughters Medical Center OhioComment on above:Performed By: #### RAMAKRISHNA, 17650-8, BMP, 65777-0, 89576- 7, THYR, 43453-8 #### [facility] ([id number]) [address] [place] [address], [place] [address]Dtnqqjz [Mass/Vol]8.5 mg/dLNormal8.5-10.5PKing's Daughters Medical Center OhioComment on above:Performed By: #### RAMAKRISHNA, 91641-2, BMP, 97728-4, 73716- 7, THYR, 18467-1 #### [facility] ([id number]) [address] [place] [address], [place] [address]Jbcytuwo [Moles/Vol]100 mmol/PAwroze91-145JwbSskwbaSeton Medical Center Harker HeightsComment on above:Performed By: #### RAMAKRISHNA, 22592-4, BMP, 10090-0, 40772- 7, THYR, 76194-9 #### [facility] ([id number]) [address] [place] [address], [place] [address]CB1 [Moles/Vol]24 mmol/LHwsgdo34-76HkpAeawxtKing's Daughters Medical Center Ohio Comment on above:Performed By: #### RAMAKRISHNA, 71555-4, BMP, 94866-3, 47486-2, THYR, 39214-6 #### [facility] ([id number]) [address] [place] [address], [place] [address]Erhgeymedp [Mass/Vol]1.13 mg/dLHigh0.40-1.00Wayne HospitalComment on above:Result Comment: METHOD TRACEABLE TO IDMS STANDARD Performed By: #### RAMAKRISHNA, 99912-2, BMP, 84763-8, 04906-7, THYR, 02155-8 #### [facility] ([id number]) [address] [place] [address] 58071MIF/1.73 sq M.predicted among non-blacks MDRD (S/P/Bld) [Vol rate/Area]61 mL/min/{1.73_m2}Normal>59ProSeton Medical Center Harker HeightsComment on above:Result Comment: Reported eGFR is based on the CKD-EPI 1 equation that does not use a race coefficient.Performed By: #### RAMAKRISHNA, 48170-0, BMP, 53184-0, 75986-8, THYR, 93174-6 #### [facility] ([id number]) [address] [place] [address] 19896Pizjobh [Mass/Vol]307 mg/mVLupl74-43JgvRupzgpWayne Hospital Comment on above:Performed By: #### RAMAKRISHNA, 54452-7, BMP, 27067-7, 33950-8, THYR, 54695-4 #### [facility] ([id number]) [address] [place] [address] 23409Fgescucjm [Moles/Vol]4.2 mmol/LNormal3.5-5.0ProSet[facility] Medical Center Harker HeightsComment on above:Performed By: #### RAMAKRISHNA, 98265-2, BMP, 49046-6, 40229- 7, THYR, 75805-9 #### [facility] ([id number]) [address] [place] [address] 80250Ipbdiix [Mass/Vol]6.0 g/dLNormal6.0-8.0Wayne HospitalComment on above:Performed By: #### RAMAKRISHNA, 95767-0, BMP, 18990-3, 60124- 7, THYR, 31969-8 #### [facility] ([id number]) [address] [place] [address] 20469Jlcwfs [Moles/Vol]133 mmol/NGbm575-275AiwKezvjvSeton Medical Center Harker HeightsComment on above:Performed By: #### RAMAKRISHNA, 89709-1, BMP, 28024-6, 69669- 7, THYR, 58003-1 #### [facility] ([id number]) [address] [place] [address], [place] [address]Fqxw nitrogen [Mass/Vol]42 mg/dLHigh5-23ProSeton Medical Center Harker HeightsComment on above:Performed By: #### RAMAKRISHNA, 77113-6, BMP, 23878-9, 92740- 7, THYR, 88800-7 #### [facility] ([id number]) [address] [place] [address] 47692Chvqsyg Glucometer (BldC) [Mass/Vol]on 86-31-9129Smsvfkl [Mass/Vol]169 mg/yQBvpw72-28TygSkzcimSeton Medical Center Harker HeightsGlucose [Mass/Vol]260 mg/yDCatc69-75JwxFvvsoaSeton Medical Center Harker HeightsMAGNESIUMon 17-86-1184Xwwwgyukk [Mass/Vol]2.2 mg/dLNormal1.8-2.6Wayne HospitalComment on above: Performed By: #### RAMAKRISHNA, 47817-4, BMP, , 17509-2, THYR, 02003-4 #### [facility] ([id number]) [address] [place] [address] 65552Ujtvsgxzgiwbm IA [Mass/Vol]on 06-46-5363YKXHWKYBUYROP0.20 ng/mL High<0.05Wayne HospitalComment on above:Result Comment: NOTE <0.50 ng/mL - Low risk of severe sepsis and/or septic shock. <2.00 ng/mL - Recommend retesting within 6-24 hours. >2.00 ng/mL - High risk of sepsis and/or septic shock.Performed By: #### RAMAKRISHNA, 72902-8, BMP, 95927-8, 62916-2, THYR, 83696-5 #### [facility] ([id number]) [address] [place] [address] 68518AQR AND AUTO DIFFon 57-50-6073WRCNEVIP BASOPHIL0.0 X10E9/L Normal0.0-0.2PKing's Daughters Medical Center OhioComment on above:Performed By: #### RAMAKRISHNA, 18839-7, BMP, 85412-6, 40046-6, THYR, 34701-1 #### [facility] ([id number]) [address] [place] [address] 26890QIMHXQRS NEUTROPHIL7.1 X10E9/LHigh1.5-6.6Wayne HospitalComment on above:Performed By: #### CBCA, 32872-4, BMP, 52000-5, 34794- 7, THYR, 31223-4 #### [facility] ([id number]) [address] [place] [address] 09003Eehknpqus/100 WBC (Bld)0.1 %NormalWayne Hospital Comment on above:Performed By: #### CBCA, 16174-5, BMP, 66299-0, 61497-6, THYR, 52471-8 #### [facility] ([id number]) [address] [place] [address] 87851Gcoyygmxgxm (Bld) [#/Vol]0.0 10*3/uLNormal0.0-0.4Wayne HospitalComment on above:Performed By: #### CBCA, 38786-5, BMP, 31330-2, 02619-6, THYR, 20259-1 #### [facility] ([id number]) [address] [place] [address] 94296Jtrfsijnmwx/100 WBC (Bld)0.0 %NormalWayne Hospital Comment on above:Performed By: #### CBCA, 54926-2, BMP, 91611-7, 38659-8, THYR, 03013-4 #### [facility] ([id number]) [address] [place] [address] 14421Gpkbbzraizp distribution width (RBC) [Ratio]13.2 %Normal 11.5-15.0ProSeton Medical Center Harker HeightsComment on above:Performed By: #### CBCA, 23067-3, BMP, 48968-2, 62887-7, THYR, 12943-7 #### [facility] ([id number]) [address] [place] [address] 37170Gciejxicbg (Bld) [Volume fraction]37.6 %Smgvti73-82KlaEvzykwSeton Medical Center Harker HeightsComment on above:Performed By: #### CBCA, 78924-8, BMP, 39848-1, 99063-2, THYR, 14338-9 #### [facility] ([id number]) [address] [place] [address] 14515Xpffmnhwcy (Bld) [Mass/Vol]12.4 g/jEYkumqw69.7-15.5PKing's Daughters Medical Center OhioComment on above:Performed By: #### CBCDesire, 04625-6, BMP, 00360-6, 55382-7, THYR, 54338-2 #### [facility] ([id number]) [address] [place] [address] 24658Heditavyqmi (Bld) [#/Vol]0.5 10*3/uLLow1.0-3.5PKing's Daughters Medical Center OhioComment on above:Performed By: #### CBCA, 79768-2, BMP, 40764-3, 19840- 7, THYR, 95701-4 #### [facility] ([id number]) [address] [place] [address] 74914Hqryeamwicb/100 WBC (Bld)6.8 %NormalWayne Hospital Comment on above:Performed By: #### CBCA, 03843-1, BMP, 11189-7, 04257-6, THYR, 13180-9 #### [facility] ([id number]) [address] [place] [address] 66115GJM (RBC) [Entitic mass]28.9 zoShpbhg93-50OlcWncbjsWayne HospitalComment on above:Performed By: #### CBCA, 14193-2, BMP, 59630-8, 11171- 7, THYR, 32791-5 #### [facility] ([id number]) [address] [place] [address] 29711CRNC (RBC) [Mass/Vol]33.1 g/xOPzbsrh86-68GqmRfikzlWayne HospitalComment on above:Performed By: #### CBCA, 32892-6, BMP, 08128-1, 45292- 7, THYR, 79971-9 #### [facility] ([id number]) [address] [place] [address] 82846IMR (RBC) [Entitic vol]87 mUIrfaac28-241XhpDdcjjiWayne HospitalComment on above:Performed By: #### CBCA, 79597-8, BMP, 67158-3, 57937- 7, THYR, 93932-8 #### [facility] ([id number]) [address] [place] [address] 03867Rlrzzhexp (Bld) [#/Vol]0.1 10*3/uLNormal0-0.9Wayne HospitalComment on above:Performed By: #### CBCA, 86236-0, BMP, 95946-1, 57246- 7, THYR, 75256-8 #### [facility] ([id number]) [address] [place] [address] 31311Zlzjnjpgu/100 WBC (Bld)0.8 %NormalWayne Hospital Comment on above:Performed By: #### CBCA, 17200-0, BMP, 91026-6, 14847-2, THYR, 06864-6 #### [facility] ([id number]) [address] [place] [address] 64678Srxdebsqdjo/100 WBC (Bld)92.3 %NormalWayne Hospital Comment on above:Performed By: #### CBCA, 69733-5, BMP, 56222-7, 78531-5, THYR, 84893-9 #### [facility] ([id number]) [address] [place] [address] 95818Hexlvzub mean volume (Bld) [Entitic vol]7.5 fLNormal7-12 ProMKaiser Foundation HospitalComment on above:Performed By: #### CBCA, 03816-4, BMP, 00232-6, 68392-8, THYR, 00605-7 #### [facility] ([id number]) [address] [place] [address] 70105Xnhmslthv (Bld) [#/Vol]171 10*3/nPThveez735-557IttHlcptp Fremont HospitalComment on above:Performed By: #### CBCA, 12641-6, BMP, 24582-9, 29794-5, THYR, 23596-1 #### [facility] ([id number]) [address] [place] [address] 09987TQW COUNT4.31 X10E12/LNormal3.80-5.20[facility] Comment on above:Performed By: #### CBCA, 11979-0, BMP, 85381-9, 19501-7, THYR, 39044-5 #### [facility] ([id number]) [address] [place] [address] 76503KVI (Bld) [#/Vol]7.7 10*3/uLNormal4.0-11.0ProSeton Medical Center Harker HeightsComment on above:Performed By: #### CBCA, 53448-3, BMP, 82296-4, 67096- 7, THYR, 10853-4 #### [facility] ([id number]) [address] [place] [address] 09330YYGGQLJCQHKPG METABOLIC PANELon 82-72-8248Xtpuuea [Mass/Vol]3.5 g/dLNormal3.2-5.3PKing's Daughters Medical Center OhioComment on above:Performed By: #### ARIANA, 66235-3, BMP, 40140-6, 49323-1, THYR, 19228-9 #### [facility] ([id number]) [address] [place] [address], [place] [address]JKJ [Catalytic activity/Vol]80 U/VKbjkaj35-513YwsKlgznnSeton Medical Center Harker HeightsComment on above:Performed By: #### RAMAKRISHNA, 85763-3, BMP, 68156-6, 48736- 7, THYR, 21657-8 #### [facility] ([id number]) [address] [place] [address] 56998MRS [Catalytic activity/Vol]U/LNormal0-31PKing's Daughters Medical Center OhioComment on above:Performed By: #### RAMAKRISHNA, 05754-5, BMP, 00812-7, 74152- 7, THYR, 66001-0 #### [facility] ([id number]) [address] [place] [address] 48004Knoqf gap [Moles/Vol]16 mmol/LHigh5-15ProSet[facility] Medical Center Harker HeightsComment on above:Performed By: #### RAMAKRISHNA, 67838-0, BMP, 03985-7, 00020- 7, THYR, 91783-8 #### [facility] ([id number]) [address] [place] [address] 62707SFT [Catalytic activity/Vol]26 U/LNormal0-41ProSeton Medical Center Harker HeightsComment on above:Performed By: #### CBCA, 30020-7, BMP, 63339-1, 42891- 7, THYR, 62732-2 #### [facility] ([id number]) [address] [place] [address], [place] [address]Upnzukeoq [Mass/Vol]0.4 mg/dLNormal0.3-1.2PKing's Daughters Medical Center OhioComment on above:Performed By: #### RAMAKRISHNA, 71684-9, BMP, 57924-7, 35846- 7, THYR, 56684-8 #### [facility] ([id number]) [address] [place] [address] 66399Kfngluu [Mass/Vol]8.9 mg/dLNormal8.5-10.5PKing's Daughters Medical Center OhioComment on above:Performed By: #### RAMAKRISHNA, 14825-8, BMP, 97869-9, 75431- 7, THYR, 88404-9 #### [facility] ([id number]) [address] [place] [address] 39305Slfyffvy [Moles/Vol]99 mmol/GHebjik45-492UyxMdvuflSeton Medical Center Harker HeightsComment on above:Performed By: #### RAMAKRISHNA, 81747-9, BMP, 31078-5, 30633- 7, THYR, 37918-0 #### [facility] ([id number]) [address] [place] [address] 94313TV4 [Moles/Vol]20 mmol/NTou52-48OwcXvazgvKing's Daughters Medical Center [place] Comment on above:Performed By: #### RAMAKRISHNA, 66771-6, BMP, 05938-3, 30734-0, THYR, 20517-9 #### [facility] ([id number]) [address] [place] [address] 76404Lgduxidveh [Mass/Vol]1.14 mg/dLHigh0.40-1.00ProSeton Medical Center Harker HeightsComment on above:Result Comment: METHOD TRACEABLE TO IDMS STANDARD Performed By: #### RAMAKRISHNA, 79376-2, BMP, 61968-3, 40568-8, THYR, 79215-8 #### [facility] ([id number]) [address] [place] [address] 14405HRJ/1.73 sq M.predicted among non-blacks MDRD (S/P/Bld) [Vol rate/Area]60 mL/min/{1.73_m2}Normal>59ProSeton Medical Center Harker HeightsComment on above:Result Comment: Reported eGFR is based on the CKD-EPI 2020 equation that does not use a race coefficient.Performed By: #### RAMAKRISHNA, 44143-6, BMP, 84980-0, 74735-8, THYR, 13751-9 #### [facility] ([id number]) [address] [place] [address] 56256Szklnte [Mass/Vol]484 mg/dLCritically cxuo62-85JtlKulkqcSeton Medical Center Harker HeightsComment on above:Performed By: #### RAMAKRISHNA, 26026-0, BMP, 21061-7, 07237-5, THYR, 90975-2 #### [facility] ([id number]) [address] [place] [address] 85687Bilicpgqd [Moles/Vol]4.1 mmol/LNormal3.5-5.0ProSeton Medical Center Harker HeightsComment on above:Performed By: #### RAMAKRISHNA, 30122-8, BMP, 43233-0, 46425- 7, THYR, 40189-8 #### [facility] ([id number]) [address] [place] [address] 84084Zarqqth [Mass/Vol]6.6 g/dLNormal6.0-8.0ProSeton Medical Center Harker HeightsComment on above:Performed By: #### RAMAKRISHNA, 29043-3, BMP, 87366-9, 07354- 7, THYR, 60675-0 #### [facility] ([id number]) [address] [place] [address] 37544Mqrpue [Moles/Vol]135 mmol/GLvaryj316-047ZaiJyspfg [facility]remont HospitalComment on above:Performed By: #### RAMAKRISHNA, 96895-0, BMP, 39570-1, 81105- 7, THYR, 70028-5 #### [facility] ([id number]) [address] [place] [address] 08993Rcdt nitrogen [Mass/Vol]28 mg/dLHigh5-23Wayne HospitalComment on above:Performed By: #### RAMAKRISHNA, 46946-0, BMP, 52317-1, 12231- 7, THYR, 46961-1 #### [facility] ([id number]) [address] [place] [address] 96229Rcxveel Glucometer (BldC) [Mass/Vol]on 85-19-6484Dqpgchr [Mass/Vol]311 mg/qCTxts61-58WgzPqcpciWayne HospitalGlucose [Mass/Vol]339 mg/pESpnu92-23MycJclwcaSeton Medical Center Harker HeightsGlucose [Mass/Vol]363 mg/bOCpiz15-59 Wayne HospitalGlucose [Mass/Vol]395 mg/qHTqcm93-30NbyKnevncWayne HospitalGlucose [Mass/Vol]488 mg/dLCritically wxfi99-53HjlTguecqWayne HospitalHGB A1C (GLYCO-HGB)on 14-01-1623Itmdkbg [Mass/Vol]229 mg/dLNormal Wayne HospitalComment on above:Performed By: #### CBCDesire, 17272-9, BMP, 28998-6, 75941-2, THYR, 51740-9 #### [facility] ([id number]) [address] [place] [address] 13577IrJ0p (Bld) [Mass fraction]9.6 %High4.4-5.6Wayne HospitalComment on above:Result Comment: NOTE ADA Guidelines Result HgbA1c Normal : less than 5.7 % Prediabetes : 5.7 % to 6.4 % Diabetes : > 6.4 % Use with caution in patients with abnormal hemoglobin variants as the half-life of red blood cells and in vivo glycation rates are affected.Performed By: #### RAMAKRISHNA, 09527-9, BMP, 06081-5, 20610-0, THYR, 82556-8 #### [facility] ([id number]) [address] [place] [address] 74592VVAFDHCZMtk 17-65-1335Vmpevwpwe [Mass/Vol]1.8 mg/dLNormal 1.8-2.6Wayne HospitalComment on above:Performed By: #### RAMAKRISHNA, 56895-9, BMP, 52636-3, 32324-1, THYR, 93268-5 #### [facility] ([id number]) [address] [place] [address], [place] [address]NVTRU METABOLIC PANLon 26-31-0416Urvel gap [Moles/Vol]10 mmol/L Normal5-15ProSeton Medical Center Harker HeightsComment on above:Performed By: #### RAMAKRISHNA, 75574-5, BMP, 07666-8, 24225-0, THYR, 13291-3 #### [facility] ([id number]) [address] [place] [address], [place] [address]Ntigdvf [Mass/Vol]9.2 mg/dLNormal8.5-10.5ProMedica West Anaheim Medical CenterComment on above:Performed By: #### RAMAKRISHNA, 29844-0, BMP, 27171-8, 17919- 7, THYR, 42604-5 #### [facility] ([id number]) [address] [place] [address], [place] [address]Yxlambtg [Moles/Vol]100 mmol/NRfeyfi24-143ElxCuvtbvSeton Medical Center Harker HeightsComment on above:Performed By: #### RAMAKRISHNA, 26836-1, BMP, 08497-7, 52907- 7, THYR, 44080-9 #### [facility] ([id number]) [address] [place] [address], [place] [address]TI1 [Moles/Vol]29 mmol/VMspumu67-49EjnGwcltq [facility] Comment on above:Performed By: #### RAMAKRISHNA, 64220-1, BMP, 47432-6, 62339-5, THYR, 27544-5 #### [facility] ([id number]) [address] [place] [address] 88706Iqnkspwbhg [Mass/Vol]0.77 mg/dLNormal0.40-1.00Wayne HospitalComment on above:Result Comment: METHOD TRACEABLE TO IDMS STANDARD Performed By: #### RAMAKRISHNA, 11164-9, BMP, 33663-5, 51739-6, THYR, 67788-0 #### [facility] ([id number]) [address] [place] [address] 92152pTOC (CKD-EPI) NON-RACE DEPENDENT>90Normal>59ProSeton Medical Center Harker HeightsComment on above:Result Comment: Reported eGFR is based on the CKD-EPI 2020 equation that does not use a race coefficient.Performed By: #### RAMAKRISHNA, 68792-0, BMP, 43640-4, 67259-6, THYR, 57094-8 #### [facility] ([id number]) [address] [place] [address] 75147Bmmcibx [Mass/Vol]254 mg/tHZpko03-23DsoDedyrmWayne Hospital Comment on above:Performed By: #### RAMAKRISHNA, 46387-2, BMP, 46904-5, 67087-4, THYR, 09264-3 #### [facility] ([id number]) [address] [place] [address] 60675Yusfvbyor [Moles/Vol]4.2 mmol/LNormal3.5-5.0Wayne HospitalComment on above:Performed By: #### RAMAKRISHNA, 76547-2, BMP, 60657-1, 68720- 7, THYR, 86578-0 #### [facility] ([id number]) [address] [place] [address] 97944Flzrfa [Moles/Vol]139 mmol/BPliazq941-355ZjhHfzhvj Fremont HospitalComment on above:Performed By: #### CBCA, 83343-8, BMP, 60763-1, 91507- 7, THYR, 41894-0 #### [facility] ([id number]) [address] [place] [address] 10653Vqlz nitrogen [Mass/Vol]23 mg/dLNormal5-23ProSet[facility] Medical Center Harker HeightsComment on above:Performed By: #### CBCA, 26959-0, BMP, 99331-1, 12782- 7, THYR, 03452-9 #### [facility] ([id number]) [address] [place] [address] 64558DTG AND AUTO DIFFon 12-46-5146VJDKOUUS BASOPHIL0.0 X10E9/L Normal0.0-0.2PKing's Daughters Medical Center OhioComment on above:Performed By: #### CBCDesire, 41873-6, BMP, 18961-4, 13676-6, THYR, 03701-6 #### [facility] ([id number]) [address] [place] [address] 10255VQCXIMHY NEUTROPHIL2.7 X10E9/LNormal1.5-6.6ProSet[facility] Medical Center Harker HeightsComment on above:Performed By: #### CBCA, 13767-1, BMP, 47074-7, 21616- 7, THYR, 53133-8 #### [facility] ([id number]) [address] [place] [address] 03739Awippwcjl/100 WBC (Bld)0.7 %NormalWayne Hospital Comment on above:Performed By: #### CBCA, 94315-0, BMP, 15163-3, 54462-2, THYR, 19417-6 #### [facility] ([id number]) [address] [place] [address] 74487Oqlwbvyhhee (Bld) [#/Vol]0.1 10*3/uLNormal0.0-0.4Wayne HospitalComment on above:Performed By: #### CBCA, 01516-5, BMP, 54382-0, 81560-3, THYR, 22726-8 #### [facility] ([id number]) [address] [place] [address] 78107Lmogofjxjac/100 WBC (Bld)1.4 %NormalWayne Hospital Comment on above:Performed By: #### CBCA, 02915-5, BMP, 31128-4, 52693-0, THYR, 93830-0 #### [facility] ([id number]) [address] [place] [address] 07988Tbmjdrcltsl distribution width (RBC) [Ratio]13.3 %Normal 11.5-15.0Wayne HospitalComment on above:Performed By: #### CBCA, 17617-3, BMP, 70907-9, 76304-7, THYR, 22017-2 #### [facility] ([id number]) [address] [place] [address] 05037Kedhreqcqf (Bld) [Volume fraction]41.2 %Rbxaxz48-92QxqTqdypeSeton Medical Center Harker HeightsComment on above:Performed By: #### CBCA, 62808-7, BMP, 42117-1, 35993-7, THYR, 68271-4 #### [facility] ([id number]) [address] [place] [address] 82673Dfdfdkawjk (Bld) [Mass/Vol]13.6 g/bGEpwnxk69.7-15.5PKing's Daughters Medical Center OhioComment on above:Performed By: #### CBCA, 05707-3, BMP, 26553-0, 26548-0, THYR, 68822-9 #### [facility] ([id number]) [address] [place] [address] 90870Ozaswevizbm (Bld) [#/Vol]2.1 10*3/uLNormal1.0-3.5ProMedica West Anaheim Medical CenterComment on above:Performed By: #### CBCA, 23143-4, BMP, 84412-0, 95629-0, THYR, 60267-0 #### [facility] ([id number]) [address] [place] [address] 01327Emsszmpvykv/100 WBC (Bld)40.9 %NormalWayne Hospital Comment on above:Performed By: #### CBCA, 90198-8, BMP, 12733-7, 73897-8, THYR, 49130-7 #### [facility] ([id number]) [address] [place] [address] 29883BPJ (RBC) [Entitic mass]28.5 myKdqmxz08-22ClkIeuvglSeton Medical Center Harker HeightsComment on above:Performed By: #### CBCA, 51845-2, BMP, 08143-5, 33446- 7, THYR, 09126-3 #### [facility] ([id number]) [address] [place] [address] 56240HLSA (RBC) [Mass/Vol]33.0 g/vMEhnjbj60-94QfwNfvizfSeton Medical Center Harker HeightsComment on above:Performed By: #### CBCA, 67677-4, BMP, 41198-9, 91067- 7, THYR, 24476-5 #### [facility] ([id number]) [address] [place] [address] 64232UHE (RBC) [Entitic vol]87 bUKsfjjw44-903FykExewto Fremont HospitalComment on above:Performed By: #### CBCA, 96226-1, BMP, 77772-1, 79946- 7, THYR, 13537-8 #### [facility] ([id number]) [address] [place] [address] 37834Qiekrzwzw (Bld) [#/Vol]0.2 10*3/uLNormal0-0.9Wayne HospitalComment on above:Performed By: #### CBCA, 35888-0, BMP, 68525-1, 16722- 7, THYR, 46705-3 #### [facility] ([id number]) [address] [place] [address] 74010Fnupmzgbb/100 WBC (Bld)4.6 %NormalWayne Hospital Comment on above:Performed By: #### CBCA, 42164-2, BMP, 71648-3, 78829-6, THYR, 09969-5 #### [facility] ([id number]) [address] [place] [address] 87545Rcuaqdxnzvn/100 WBC (Bld)52.4 %NormalWayne Hospital Comment on above:Performed By: #### CBCA, 77862-4, BMP, 73692-6, 09037-2, THYR, 65039-7 #### [facility] ([id number]) [address] [place] [address] 19950Gfysekba mean volume (Bld) [Entitic vol]7.0 fLNormal7-12 Wayne HospitalComment on above:Performed By: #### CBCA, 94116-5, BMP, 34780-2, 55451-8, THYR, 97151-8 #### [facility] ([id number]) [address] [place] [address] 45025Depzcmztn (Bld) [#/Vol]190 10*3/cSGriuno984-865AetCddqqe [facility]remont HospitalComment on above:Performed By: #### CBCA, 74634-9, BMP, 94885-9, 10421-1, THYR, 23854-3 #### [facility] ([id number]) [address] [place] [address] 90836RXJ COUNT4.77 X10E12/LNormal3.80-5.20[facility] Comment on above:Performed By: #### CBCA, 91834-9, BMP, 79336-0, 82392-1, THYR, 18950-6 #### [facility] ([id number]) [address] [place] [address] 49092HMZ (Bld) [#/Vol]5.2 10*3/uLNormal4.0-11.0ProSeton Medical Center Harker HeightsComment on above:Performed By: #### CBCA, 09262-6, BMP, 79668-3, 79211- 7, THYR, 56238-7 #### [facility] ([id number]) [address] [place] [address] 44276Zadfvf D-dimer DDU (PPP) [Mass/Vol]on 07-21-2024 UZQJG135 ng/mL DDUNormal<255ProSeton Medical Center Harker HeightsComment on above:Result Comment: Results <255 ng/mL DDU: The presence of a VTE can safely be excluded with a negative D-Dimer result and Wells score. A negative result doesn't exclude the possibility of DIC. The test be repeated along with other diagnostic tests if the patient's symptoms persist or worsen. [email or web address] By: #### CBCA, 51248-4, BMP, 81743-7, 02388-6, THYR, 55096-8 #### [facility] ([id number]) [address] [place] [address] 33285TSARCRNQEuy 32-70-1429Uhehpbnyq [Mass/Vol]2.0 mg/dLNormal 1.8-2.6ProHarris Health System Ben Taub Hospitalment on above:Performed By: #### CBCA, 47038-3, BMP, 19091-7, 48235-9, THYR, 88992-7 #### [facility] ([id number]) [address] [place] [address], [place], [place] [address]Zbfafkmpmul peptide B [Mass/Vol]on 85-51-9224Qzwlbtuevso peptide B (Bld) [Mass/Vol]20 pg/mLNormal<100.0ProNacogdoches [facility] on above:Performed By: #### CBCA, 08490-7, BMP, 52783-8, 25735-2, THYR, 77117-6 #### [facility] ([id number]) [address] [place] [address] 86840NAXZ/FLU A+B/RSV by NAAT/Molecularon 41-69-2276TKBQ/FLU A+B/RSV by NAAT/MolecularFLU A PCR Negative (qualifier [...] operators who are performing tests using either Gene[employer] Safety DX or GeneVeeda systems and is limited to laboratories that [...] specimen repeat. Fact Sheet for Healthcare Providers: https://www.fda.gov/media/307216/download Fact Sheet for Patients: https://www.fda.gov/media/329770/downloadNormalProSeton Medical Center Harker HeightsComment on above:Performed By: #### COVFLR #### [facility] ([id number]) [address] [place] [address] 90594LNDZBST PROFILEon 49-16-7355Wrey T4 [Mass/Vol]1.11 ng/dLNormal 0.61-1.60ProSeton Medical Center Harker HeightsComment on above:Performed By: #### RAMAKRISHNA, 47492-2, BMP, 49097-8, 86760-5, THYR, 79061-0 #### [facility] ([id number]) [address] [place] [address] 58891CPJ4.45 uIU/mLNormal0.49-4.67ProSeton Medical Center Harker HeightsComment on above:Performed By: #### CBCA, 26037-4, BMP, 52340-0, 10651-8, THYR, 54860-4 #### [facility] ([id number]) [address] [place] [address] 47756Mqujeded I.cardiac High sensitivity method [Mass/Vol]on HOUR TROP I, HIGH SENSITIVITY3 ng/LNormal<16ProSeton Medical Center Harker HeightsComment on above:Performed By: #### CBCA, 41013-0, BMP, 74994-4, 01702- 7, THYR, 52731-0 #### [facility] ([id number]) [address] [place] [address] 341954 HOUR TROP I, HIGH SENSITIVITY3 ng/LNormal<16ProSeton Medical Center Harker HeightsComment on above:Performed By: #### 51093-2 #### [facility] ([id number]) [address] [place] [address] 42187GFHJXMKK I, HIGH SENSITIVITY3 ng/LNormal<16ProSeton Medical Center Harker HeightsComment on above:Performed By: #### CBCA, 32684-6, BMP, 31820-8, 42651- 7, THYR, 54903-8 #### [facility] ([id number]) [address] [place] [address] 57692IZ CHEST 1 VWon 65-16-8117BT CHEST 1 VWXR CHEST 1 VW XR CHEST 1 VW IMPRESSION: Clinical Information: chest pain Comparison: 06/28/24. * No pulmonary edema or consolidation. * No effusions. * Stable heart size. * Mild elevation right hemidiaphragm. Finalized by Shama Calvin MD on 07/21/2024 5:08 PMNormalWayne HospitalMAGR Postoperative Recordon 38-41-8513ZEVN Postoperative RecordMAGR Phase II Record Summary Primary Physician: Gary Miller DO Finalized Date/Time: 07/16/24 07:39:56 Pt. Name: CARISSA SANTOS/Sex: 1980 FEMALE Med Rec #: [id number] Physician: Gary Miller DO Financial #: [id number] Pt. Type: D Room/Bed: / Admit/Disch: 06/17/24 [...] 1 minute in order for charges to drop.[facility] TOMOSYNTHESIS SCREENING BIon 21-96-[place], [place] [address] Mammography Report Signed Patient: CARISSA SANTOS MR#: [id number] : 1980 Acct:[id number] Age/Sex: 43 / F ADM Date: 06/28/24 Loc: MAMMO Attending Dr: Feliz Benz D.O. Ordering Physician: Feliz Benz D.O. Results: Date of Service: 06/28/24 Follow Up: Procedure(s): MM tomosynthesis screening BI Accession Number(s): [id number] cc: Feliz Benz D.O.; Diaz Dalton M.D. Patient Name: CARISSA SANTOS MR#: [id number] : 1980 Exam Date: 06/28/2024 Ordering Doctor: [...] Treatments None Family Cancers None LOCATION: [facility] BREAST COMPOSITION: There are scattered areas [...] M.D. Signed By: 06/30/241953 DD/ 51 TD/TT: Manual Winder:TBHRadiology, Radiologist, MD - 06/30/2024 [place] [address] Mammography Report Signed Patient: CARISSA SANTOS MR#: [id number] : 1980 Acct:[id number] Age/Sex: 43 / F ADM Date: 06/28/24 Loc: MAMMO Attending Dr: Feliz Benz D.O. Ordering Physician: Feliz Benz D.O. Results: Date of Service: 06/28/24 Follow Up: Procedure(s): MM tomosynthesis screening BI Accession Number(s): [id number] cc: Feliz Benz D.O.; Diaz Dalton M.D. Patient Name: CARISSA SANTOS MR#: [id number] : 1980 Exam Date: 06/28/2024 Ordering Doctor: [...] Treatments None Family Cancers None LOCATION: [facility] BREAST COMPOSITION: There are scattered areas [...] M.D. Signed By: 06/30/241953 DD/ 51 TD/TT: Manual Winder: [facility] HospitalRad[facility] Study observation (narrative)[facility] TOMOSYNTHESIS SCREENING BIOrdered By: Radiologist Radiology on 40-54-7571NTBC [employer] Work Phone: cOMPLETE BLOOD COUNTon 02-25-1938Nqcfvvcconm distribution width (RBC) [Ratio]14.2 %Vkzqwr16.5-15.0[facility] Comment on above:Performed By: #### CBC #### [facility] ([id number]) [address], [address] [place], [place] [address]Pxbixofzih (Bld) [Volume fraction]38.8 %Urqyrj46-89AwjQssvdjPromedica Bay Park HospitalComment on above:Performed By: #### CBC #### [facility] ([id number]) [address], [address] [place], [place] [address]Vlgqazbhru (Bld) [Mass/Vol]12.9 g/eQVgwvxt41.7-15.5ProMedica Aldridge HospitalComment on above:Performed By: #### CBC #### [facility] ([id number]) [address], [address] [place], [place] [address]HTJ (RBC) [Entitic mass]29.0 ouFibmeg03-21SqfYpwogd [facility]ridge HospitalComment on above:Performed By: #### CBC #### [facility] ([id number]) [address], [address] [place], [place] [address]FEQF (RBC) [Mass/Vol]33.2 g/wWVltgzs29-17MfjDvpeuk [facility] HospitalComment on above:Performed By: #### CBC #### [facility] ([id number]) [address], [address] [place], [place] [address]NYM (RBC) [Entitic vol]87 xCYiydsf27-475AcsBsabxq [facility] HospitalComment on above:Performed By: #### CBC #### [facility] ([id number]) [address], [address] [place], [place] [address]Oaqewhcr mean volume (Bld) [Entitic vol]6.9 fLLow7-12ProMedica Aldridge HospitalComment on above:Performed By: #### CBC #### [facility] ([id number]) [address], [address] [place], [place] [address]Wbhtrfloz (Bld) [#/Vol]210 10*3/rZPkzspj760-301LaeOpkaad [facility] HospitalComment on above:Performed By: #### CBC #### [facility] ([id number]) [address], [address] [place], [place] [address]ZJW COUNT4.46 X10E12/LNormal3.80-5.20[facility] Comment on above:Performed By: #### CBC #### [facility] ([id number]) [address], [address] [place], [place] [address]YAQ (Bld) [#/Vol]6.5 10*3/uLNormal4.0-11.0ProPromedica Bay Park HospitalComment on above:Performed By: #### CBC #### [facility] ([id number]) [address] [place], [place] [address]GVZ HDGU1xt 92-55-2163Orpfsbjn [Moles/Vol]99 mmol/SWtyzgz77-659 ProMAvita Health System Bucyrus HospitalComment on above:Performed By: #### IELGBC #### [facility] ([id number]) [address] [place], [place] [address]YC9 [Moles/Vol]30 mmol/ATdxlgh27-01UojYmfocrClermont County Hospital Comment on above:Performed By: #### IELGBC #### [facility] ([id number]) [address] [place], [place] [address]Efuuuhnmtk [Mass/Vol]0.9 mg/dLNormal0.4-1.0St. Anthony's HospitalComment on above:Result Comment: METHOD TRACEABLE TO IDMS STANDARD Performed By: #### IELGBC #### [facility] ([id number]) [address] [place], [place] [address]OTE/1.73 sq M.predicted among non-blacks MDRD (S/P/Bld) [Vol rate/Area]81 mL/min/{1.73_m2}Normal>59ProPromedica Bay Park HospitalComment on above: Result Comment: Reported eGFR is based on the CKD-EPI 2020 equation that does not use a race coefficient.Performed By: #### IELGBC #### [facility] ([id number]) [address], [place] [address]Ltczqns [Mass/Vol]128 mg/zPBozi43-00SjmLwptkgSt. Anthony's Hospital Comment on above:Performed By: #### IELGBC #### [facility] ([id number]) [address] [place], [place] [address]Kwnsodnyn [Moles/Vol]4.3 mmol/LNormal3.5-5.0ProMedica [facility] HospitalComment on above:Performed By: #### IELGBC #### [facility] ([id number]) [address] [place], [place] [address]Pidiem [Moles/Vol]140 mmol/VNwrkfw076-327EseUztvog [facility] HospitalComment on above:Performed By: #### IELGBC #### [facility] ([id number]) [address] [place], [place] [address]Zhzy nitrogen [Mass/Vol]28 mg/dLHigh6-23ProMedica [facility]over HospitalComment on above:Performed By: #### IELGBC #### [facility] ([id number]) [address] [place], [place] [address]Ugiogi Summaryon 87-83-8613Xqqruv SummaryHTMLBase 64 AobiiwlwQRj5vJs+PGhlYWQ+XL2RMERuP17zoRRvqH2xG9SHADcCHumwIWBOAKoGOhGgrhUnZK4ieBAz ZXJu [file] ci1 (more content not included)...[facility] Intraoperative Recordon 47-34-8988AUDY Intraoperative RecordMAGR Intra-Op Record Summary Primary Physician: Gary Miller DO Finalized Date/Time: 06/20/24 08:21:54 Pt. Name: CARISSA SANTOS/Sex: 1980 FEMALE Med Rec #: [id number] Physician: Gary Miller DO Financial #: [id number] Pt. Type: D Room/Bed: / Admit/Disch: 06/17/24 [...] Role Performed Surgeon - Primary Anesthesiologist of Spa Consultant Record Time In 06/17/24 10:22:00 06/17/24 10:16:00 06/17/24 10:16:00 Time Out 06/17/24 10:37:00 06/17/24 10:43:00 06/17/24 10:43:00 Procedure Carpal Tunnel Carpal Tunnel Carpal Tunnel Release(Right) Release(Right) Release(Right) Last Modified By: Jessica Ordonez RN, Diane RN Kokinda, Diane RN 06/17/24 10:47:37 06/17/24 10:47:37 06/17/24 10:47:37 Entry 4 Entry 5 Case Attendee Heaven Lainez Regina CSFA SALES AND SERVICE TECHNICIAN SALES AND SERVICE TECHNICIAN Role Performed [employer] Time In 06/17/24 10:16:00 06/17/24 10:16:00 Time [...] Out Time 06/17/24 10:28:00 Participants Gerri Newberry SALES AND SERVICE TECHNICIAN, Jessica Ordonez RN Last Modified By: Jessica [...] A.30 Verifies allergies Im.2 (more content not included)...[facility] HealthConsent Formson 24-44-5343Iyxrniw Forms [id number]#1.00OTOhioHealth Doctors Hospital Discharge Instructionson 87-23-8462Eplvqarhm Instructions [id number]#1.00OTOhioHealth Doctors Hospital Outside Recordson 89-12-5927Kgtkmve Records [id number]#1.00[facility] Anesthesia Noteon 64-04-6595Empseezbux NotePatient: CARISSA SANTOS Age: 43 years Sex: FEMALE : 1980 Associated Diagnoses: None Author: Olivier Lares MD Postoperative Information Post Operative Note: Operative Day. Anesthetic utilized: Monitored anesthesia care. Health Status Allergies: Allergic Reactions (All) Moderate Bactrim- Rash. Canceled/Inactive Reactions (All) No known allergies Problem list: All Problems Anxiety / SNOMED CT 27595472 / Confirmed Chronic hypoxic respiratory failure / SNOMED CT 5195126742 / Confirmed Depression / SNOMED CT 87347355 / Confirmed Developmental delay / SNOMED CT 209211897 / Confirmed Diabetes / SNOMED CT 557381174 / Confirmed GERD (gastroesophageal reflux disease) / SNOMED CT 331612664 / Confirmed High blood cholesterol / SNOMED CT 01704696 / Confirmed HTN (hypertension) / SNOMED CT 8638347790 / Confirmed Irritable bowel syndrome (IBS) / SNOMED CT 86065922 / Confirmed Pulmonary nodule / SNOMED CT 0629063972 / Confirmed Obesity / SNOMED CT 7326458937 / Confirmed Physical Examination Vital Signs (last [...] [Verified on: 06/17/2024 10:48 EDT] Olivier Lares MDMadison HealthAnesthesia NotePatient: CARISSA SANTOS Age: 43 years Sex: [...] list: All Problems Anxiety / SNOMED CT 66327221 / Confirmed Chronic hypoxic respiratory failure / SNOMED CT 3042096167 / Confirmed Depression / SNOMED CT 90660877 / Confirmed Developmental delay / SNOMED CT 150599226 / Confirmed Diabetes / SNOMED CT 033205822 / Confirmed GERD (gastroesophageal reflux disease) / SNOMED CT 747132183 / Confirmed High blood cholesterol / SNOMED CT 73825536 / Confirmed HTN (hypertension) / SNOMED CT 7473173270 / Confirmed Irritable bowel syndrome (IBS) / SNOMED CT 88316373 / Confirmed Pulmonary nodule / SNOMED CT 8800446777 / Confirmed Obesity / SNOMED CT 4888954125 / Confirmed Histories Family History: Heart attack Mother COPD (chronic obstructive pulmonary disease) Mother Procedure history: Carpal tunnel (231671260) on 09/25/2023 at 43 Years. Comments: 09/25/2023 8:27 EST - Jennyfer Gresham RN left TL - Tubal ligation (394313594) on 03/31/2023 at 42 Years. Genital warts (281561815). Cholecystectomy (52650474). Decompression of ulnar nerve (010093693). Comments: 04/16/2024 10:03 EDT - Fady ERICKSON, [...] Oriented. Review / Management Laboratory Results Plan [place] Society [employer] Anesthesiologists (ASA) physical status classification: Class III. Anesthetic Preoperative Plan Anesthesia: Monitored anesthesia care. Anesthetic plan, risks, benefits, and alternatives discussedwith the patient and/or family. Patient verbalized understanding. Informed consent was given. Consent was signed by the patient. [Electronically Signed on: 06/17/2024 10:14 EDT] Olivier Lares MD [Verified on: 10 (more content not included)...[facility] HealthInpatient Patient Summaryon 63-25-7861Fqppreguz Patient Summary[address] [id number] Patient Discharge Instructions Name: CARISSA SANTOS : 1980 Patient Address: [facility] [address] Primary Care Provider: Name: DIAZ DALTON After you are discharged if you find you have any questions, please, call [phone] ext [phone] to speak to a nurse. Discharge Diagnosis: Carpal tunnel syndrome, right Prescription Information: If you have been given a prescription for narcotics, seek immediate medical attention if you have any difficulty breathing or any sudden status changes such as confusion andsleepiness. If you or anyone you know is experiencing suicidal thoughts, mental health, alcohol and/or drug addiction problems; contact the [facility] 27/03 Crisis Hotline -Text 4HDVW sn 458932. If you received any narcotics, sedation, or [...] or sign any legal documents [facility] would like to thank you for allowing us to assist you with your healthcare needs.The following includes patient education materials and information regarding your injury/illness. CARISSA SANTOS has been given the following list of follow-up instructions, prescriptions, andpatient education materials: Follow-up Instructions With: Address: When: [address] [place] [id number] Business (1) 06/24/2024 10:15 AM Medications During [...] every day. Durable Medical Equipment for Prescription (SYSTRAN SENSOR 14D) APPLY 1 SENSOR TO BACK [...] 40 mg oral (more content not included)...Normal [facility] Preoperative Recordon 80-54-7575XKRR Preoperative Record MAGR Pre-Op Record Summary Primary Physician: Gary Miller DO Finalized Date/Time: 06/17/24 13:04:23 Pt. Name: CARISSA SANTOS/Sex: 1980 FEMALE Med Rec #: [id number] Physician: Gary Miller DO Financial #: [id number] Pt. Type: D Room/Bed: / Admit/Disch: 06/17/24 [...] Signatures Signed By: Jennyfer Gresham RN 06/17/24 13:04[facility] Glucose Levelon 96-37-1360Iomdcap [Mass/Vol]43 mg/dLCritically tcdwlucn84-034Fnzuiqvy[address] [place] [address] Comment on above:Result Comment: OPR_ID=IN_LIST,TGC FLAG = False,Meter:[id number] Rn Unit Manager:Jojo DangeloPerformed By: #### [id number] ####[facility] (DEFAULT)[address] [place], [place] [address]Lqkqasi Handouton 06-17-2024 Patient HandoutDRBrian MILLER'S POST OPERATIVE CARPAL TUNNEL INSTRUCTIONS: SURGEON'S WRITTEN INSTRUCTIONS: 1. Keep your hand elevated above your elbow for the first 24 hours after surgery. 2. Wiggle your fingers frequently while awake. 3. DO NOT lift heavy objects or liability claims adjuster forcefully with your hand. 4. Change your [...] or concerns, please call the office at [phone]. 7. Follow up as scheduled.[facility] - Nurseon 70-96-0132Pbagutku Note - NursePre-op call made- pt given arrival time of 0800 on 06-17-2024. Pt reminded of NPO status after midnight except for any meds that she was instructed to take with sip of water, needing otr driver, to bringphoto ID and insurance card, hibiclens shower- pt with understanding. [Electronically Signed on: 06/14/2024 10:52 EDT] Margaret Cuellar RN [Verified on: 06/14/2024 10:52 EDT] Margaret Cuellar RN, [facility] concerned whether pt has hold her Mounjaro medication for a week- pt recalled and pt stated that last dose of her Mounjaro was on 06-03-2024. [Electronically Signed on: 06/14/2024 11:05 EDT] Margaret CuellarWhite Hospitaless Note - Nursesimran 90-48-2393Jmptpnlp Ursula - Javid Flores reviews pt clearance and states that a new PAT is not necessary. [Electronically Signed on: 05/31/2024 11:43 EDT] Kalyani Ortiz RN [Verified on: 05/31/2024 11:43 EDT] Kalyani Ortiz [facility] HospitalCoding Summaryon 45-32-9794Nxkbvl SummaryHTMLBase 64 LbsvqwvwVEa2zDi+PGhlYWQ+HR5TKPBnF39qdSIesC7uW8GWPFmABowwQOUCVOqETgTsqjNxNA9lkLHv ZXJu [file] ZTo (more content not included)...[facility] Note - Nurseon 86-97-6253Mbqenqqq Note - NurseWriter spoke with Adriane at Dr. Jones office and informed her that per Dr. Barrett pt will need an echo to evaluate for pulmonary HTN before her surgery. Adriane verbalizes understanding. [Electronically Signed on: 04/18/2024 15:41 EDT] Jennyfer Gresham RN [Verified on: 04/18/2024 15:41 EDT] Jennyfer Gresham [facility] Ursula - Javid Barrett reviewed PAT information. Per Dr. Barrett pt needs echo as recommended by pulmonology to eval uate for Pulmonary HTN. Waiting to hear back from Dr. Jones office to inform them of need forecho. [Electronically Signed on: 04/18/2024 15:20 EDT] Jennyfer Gresham RN [Verified on: 04/18/2024 15:20 EDT] Ager, Jennyfer [facility].Auto Diff 1on 02-51-7959Anby Casey %6 % Normal1-12[facility] HospitalComment on above:Performed By: #### [id number] ####[facility] [place] (DEFAULT)[address] [place] [id number] Abs#0.0 [id number] HospitalComment on above: Performed By: #### [id number], [id number], [id number] ####[facility] [place] (DEFAULT)[address] [place] [address] 98601Gstovdkub/100 WBC (Bld)0.5 % Normal0.2-2.0[facility] [place] HospitalComment on above:Performed By: #### [id number], [id number], [id number] ####[facility] [place] (DEFAULT)[address] [place] [address] 06611Wuc Abs#0.1 [id number] HospitalComment on above: Performed By: #### [id number], [id number], [id number] ####[facility] [place] (DEFAULT)[address] [place] [address] 47777Xfdtdmknxqy/100 WBC (Bld)1.4 % Normal0.9-4.0[facility] HospitalComment on above:Performed By: #### [id number], [id number], [id number] ####[facility] [place] (DEFAULT)[address] [place] [address] 40456Zscnj Abs#1.9 p29Uruwxo0.3-2.9[facility] HospitalComment on above:Performed By: #### [id number], [id number], [id number] ####[facility] (DEFAULT)[address] [place] [address] 19062Gtxtpxhglgf/100 WBC (Bld)37 % Ftyfhu21-45Xxsgctqa HospitalComment on above:Performed By: #### [id number], [id number], [id number] ####[facility] [place] (DEFAULT)[address] [place] [address] 06360Bvmm Abs#0.3 x79Uvlqwj6.0-0.8[facility] [place] HospitalComment on above: Performed By: #### [id number], [id number], [id number] ####[facility] (DEFAULT)[address] [place] [address] 83303Htgs Abs#2.8 m26Zvtfoa9.5-9.2 [facility] HospitalComment on above:Performed By: #### [id number], [id number], [id number] ####[facility] (DEFAULT)[address] [place] [address] 73713 Neutrophils/100 WBC (Bld)55 %Dqawnl93-51Sriqvaeo HospitalComment on above: Performed By: #### [id number], [id number], [id number] ####[facility] (DEFAULT)[address] [place] [address] 00236VAO Standardon 27-97-1272iWTZ Non AA>60Invalid Interpretation [place] HospitalComment on above:Performed By: #### [id number], [id number], [id number] ####[facility] (DEFAULT)[address] [place] [address] 83100yAOI AA>60Invalid Interpretation CodeSelect Medical [facility] [place] HospitalComment on above:Performed By: #### [id number], [id number], [id number] ####[facility] [place] (DEFAULT)[address] [place] [address] 16907Tziou gap [Moles/Vol]11.4 mmol/LNormal5.0-19.0[facility] HospitalComment on above:Performed By: #### [id number], [id number], [id number] ####[facility] [place] (DEFAULT)[address] [place] [address] 74728Mgixtja [Mass/Vol]8.7 mg/dLLow8.9-10.3M[facility] HospitalComment on above:Performed By: #### [id number], [id number], [id number] ####[facility] [place] (DEFAULT)[address] [place] [address] 52678Kbuebfjm [Moles/Vol]100 mmol/BKwf792-991Gnknwfyr HospitalComment on above:Performed By: #### [id number], [id number], 8149836 ####[facility] [place] (DEFAULT)[address] [place] [address] 16097VU3 [Moles/Vol]27 mmol/WBqqzpb28-44Ybnpzxul Hospital Comment on above:Performed By: #### [id number], [id number], [id number] ####[facility] (DEFAULT)[address] [place] [address] 05890Gpznjmbzso [Mass/Vol] 0.73 mg/dLNormal0.60-1.30[facility] HospitalComment on above:Performed By: #### [id number], [id number], 8741876 ####[facility] (DEFAULT)[address] [place] [address] 87880Cskjjlt [Mass/Vol]249.0 mg/iAPyha34.0-118.0[facility] HospitalComment on above:Performed By: #### [id number], [id number], [id number] ####[facility] [place] (DEFAULT)[address] [place] [address] 93649Txgbllxyfi 279 mOsm/LInvalid Interpretation CodeSelect [facility] [place] HospitalComment on above:Performed By: #### [id number], [id number], [id number] ####[facility] [place] (DEFAULT)[address] [place] [address] 50105Zajwxlpcy [Moles/Vol]4.4 mmol/LNormal3.6-5.1 [facility] HospitalComment on above:Performed By: #### [id number], [id number], 1090796 ####[facility] [place] (DEFAULT)[address] [place] [address] 31918 Sodium [Moles/Vol]134.0 mmol/LGdx071.0-144.0[facility] HospitalComment on above: Performed By: #### [id number], [id number], 0970396 ####[facility] [place] (DEFAULT)[address] [place] [address] 40732Dmzx nitrogen [Mass/Vol]20 mg/dL Normal8-26[facility] HospitalComment on above:Performed By: #### [id number], [id number], 0263576 ####[facility] [place] (DEFAULT)[address] [place] [address] 17338Oyam nitrogen/Creatinine [Mass ratio]27.3 mg/mgHigh4.6-16.2 [facility] HospitalComment on above:Performed By: #### [id number], [id number], 1104253 ####[facility] [place] (DEFAULT)[address] [place] [address] 29895 CBC w/ Auto Diffon 39-27-0207Dkudyesojys distribution width (RBC) [Ratio]13.9 % Myeegw90.5-15.0[facility] HospitalComment on above:Performed By: #### [id number], [id number], 2781654 ####[facility] [place] (DEFAULT)[address] [place] [address] 60318Hfmjxmegvn (Bld) [Volume fraction]43.1 %High33.7-40.4[facility] HospitalComment on above:Performed By: #### [id number], [id number], 4961844 ####[facility] [place] (DEFAULT)[address] [place] [address] 93802Iombxmfvwc (Bld) [Mass/Vol]14.0 g/gYBdggoh28.3-15.9[facility] HospitalComment on above: Performed By: #### [id number], [id number], 0839816 ####[facility] [place] (DEFAULT)[address] [place] [address] 44471Jgz Diff?AutoInvalid Interpretation CodeSelect [facility] [place] HospitalComment on above:Performed By: #### [id number], [id number], [id number] ####[facility] (DEFAULT)[address] [place] [address] 48691HSS (RBC) [Entitic mass]28 hnAuhzqi88-25Ssaemueb HospitalComment on above:Performed By: #### [id number], [id number], 1835995 ####[facility] [place] (DEFAULT)[address] [place] [address] 96887LRMW (RBC) [Mass/Vol]33 g/qHYehvxp44-39Zetijfew HospitalComment on above:Performed By: #### [id number], [id number], 2541109 ####[facility] [place] (DEFAULT)[address] [place] [address] 39467EDT (RBC) [Entitic vol]86 vVKrxzjp61-325Jvcfvdss HospitalComment on above:Performed By: #### [id number], [id number], 7434801 ####[facility] [place] (DEFAULT)[address] [place] [address] 01089Inyixsbe 204 x13Eaqmut079-182Peluydug HospitalComment on above:Performed By: #### [id number], [id number], 2489939 ####[facility] [place] (DEFAULT)[address] [place] [address] 25923Blfdrimm mean volume (Bld) [Entitic vol]7.4 fLNormal 6.3-10.2[facility] HospitalComment on above:Performed By: #### [id number], [id number], 2336785 ####[facility] [place] (DEFAULT)[address] [place] [address] 03359UYA2.99 e30Nndaxt2.70-5.30[facility] HospitalComment on above: Performed By: #### [id number], [id number], 9373729 ####[facility] [place] (DEFAULT)[address] [place] [address] 36101GLD0.1 e17Fdaslv4.5-10.5[facility] HospitalComment on above:Performed By: #### [id number], [id number], 5794840 ####[facility] (DEFAULT)[address] [place] [address] 18033WT PELVIS W/ TRANSVAGINALon 71-68-4542[address] [address] Ultrasound Report Signed Patient: CARISSA SANTOS MR#: [id number] : 1980 Acct:[id number] Age/Sex: 43 / F ADM Date: 04/02/24 Loc: [facility] Attending Dr: Georgette Dodd Ordering Physician: Georgette Dodd Date of Service: 04/02/24 Procedure(s): US pelvis w/ transvaginal Accession Number(s): [id number] cc: Georgette Dodd; Diaz Dalton M.D. The [address] [id number] Patient Name: CARISSA SANTOS MRN: [id number] date: 1980 Sex: F Assigned Patient Location: [facility] Current Patient Location: Accession/Order Number: [id number] Exam Date: 04/02/2024 11:53 Report Date: 04/03/2024 [...] M.D. Signed By: 04/03/24830 DD/ 8 TD/TT: Manual Winder:TBHRadiology, Radiologist, MD - 04/03/2024 [place] [address] Ultrasound Report Signed Patient: CARISSA SANTOS MR#: [id number] : 1980 Acct:[id number] Age/Sex: 43 / F ADM Date: 04/02/24 Loc: NOM[facility] Attending Dr: Georgette Dodd Ordering Physician: Georgette Dodd Date of Service: 04/02/24 Procedure(s): US pelvis w/ transvaginal Accession Number(s): [id number] cc: Georgette Dodd; Diaz Dalton M.D. The [place] [id number] Patient Name: CARISSA SANTOS MRN: [id number] date: 1980 Sex: F Assigned Patient Location: [facility] Current Patient Location: Accession/Order Number: [id number] Exam Date: 04/02/2024 11:53 Report Date: 04/03/2024 [...] M.D. Signed By: 04/03/24830 DD/ 8 TD/TT: Manual Winder: [facility] HealthcareRadiology Study observation (narrative)[facility] HealthcareUS PELVIS W/ TRANSVAGINALOrdered By: Radiologist Radiology on 79-73-5703KVSJ [facility] Work Phone: ct ABDOMEN/PELVIS WO CONTon [id number] [place] [address] CT Scan Report Signed Patient: CARISSA SANTOS MR#: [id number] : 1980 Acct:[id number] Age/Sex: 43 / F ADM Date: 04/01/24 Loc: CT Attending Dr: Georgette Dodd Ordering Physician: Georgette Dodd Date of Service: 04/01/24 Procedure(s): CT abdomen pelvis wo con Accession Number(s): [id number] cc: Diaz Dalton M.D. [address] [id number] Patient Name: CARISSA SANTOS MRN: [id number] date: 1980 Sex: F Assigned Patient Location: CT Current Patient Location: Accession/Order Number: [id number] Exam Date: 04/01/2024 12:24 Report Date: 04/02/2024 [...] M.D. Signed By: 04/02/2440 DD/ 0638 TD/TT: Manual Winder:NEELIMAadiologmarco antonio, Radiologist, - 04/02/[address] [address] [address] Scan Report Signed Patient: CARISSA SANTOS MR#: [id number] : 1980 Acct:[id number] Age/Sex: 43 / F ADM Date: 04/01/24 Loc: CT Attending Dr: Georgette Dodd Ordering Physician: Georgette Dodd Date of Service: 04/01/24 Procedure(s): CT abdomen pelvis wo con Accession Number(s): [id number] cc: Diaz Dalton M.D. The [address] [address] Patient Name: CARISSA SANTOS MRN: [id number] date: 1980 Sex: F Assigned Patient Location: CT Current Patient Location: Accession/Order Number: [id number] Exam Date: 04/01/2024 12:24 Report Date: 04/02/2024 [...] M.D. Signed By: 04/02/24639 DD/ 7 TD/TT: Manual Winder: [facility] HealthcareRadiology Study observation (narrative)[facility] HealthcareCT ABDOMEN/PELVIS WO CONTOrdered By: Radiologist Radiology on 11-70-6172SPNZ [employer] Work Phone: bacteria identified Cx Nom (U)on 12-23-2023 Interpretation and review of laboratory resultsAbnoUNC Health Pardee Service comment (Unsp spec) [Interp]>100,000 ORGANISMS/mL ESCHERICHIA COLI AbnormalUniversity Hospitals Geneva Medical Center SystemService comment (Unsp spec) [Interp]<10,000 ORGANISMS/mL NORMAL URO GENITAL FLORASelect Specialty Hospital - McKeesportBasic Metabolic Panelon 01-79-6913Ycyyj gap [Moles/Vol]8 mmol/L5 - 15 mmol/[facility] SystemCalcium [Mass/Vol]8.2 mg/dLLow8.5 - 10.5 mg/dL [facility] SystemChloride [Moles/Vol]104 mmol/L98 - 109 mmol/LProMedsouth baldwin regional medical center Health SystemCO2 [Moles/Vol]25 mmol/L22 - 32 mmol/[facility] RichmondoMedsouth baldwin [facility] Health System Creatinine [Mass/Vol]0.89 mg/dL0.40 - 1.00 mg/dLNorwalk Memorial HospitalComment on above:METHOD TRACEABLE TO [facility] STANDARDeGFR (CKD-EPI)non-race uisikvkxj97- [facility] HospitalComment on above: Reported eGFR is based on the CKD-EPI 2020 equation that does not use a race coefficient. Glucose [Mass/Vol]215 mg/gKSxvo12 - 99 mg/dLNorwalk Memorial Hospital Interpretation and review of laboratory resultsAbUpstate University Hospital Potassium [Moles/Vol]4.3 mmol/L3.5 - 5.0 mmol/LPrPremier Health Miami Valley Hospital South SystemSodium [Moles/Vol]137 mmol/L134 - 146 mmol/[facility] Memorial HospitalUrea nitrogen [Mass/Vol]22 mg/dL5 - 23 mg/dLNorwalk Memorial HospitalCBC without diffon 81-40-3423Otyrfhnbshz distribution width (RBC) [Ratio]13.8 %11.5 - 15.0 % [facility] HospitalHematocrit (Bld) [Volume fraction]33.8 %Low35 - 47 % [facility] HospitalHemoglobin (Bld) [Mass/Vol]11.5 g/dLLow11.7 - 15.5 g/dL [facility] HospitalInterpretation and review of laboratory resultsAbnoal [facility] HospitalMCH (RBC) [Entitic mass]29.2 pg27 - 34 [facility] HospitalMCHC (RBC) [Mass/Vol]34.0 g/dL32 - 36 g/dLNorwalk Memorial HospitalMCV (RBC) [Entitic vol]86 fL80 - 100 [facility] HealthPlatelet mean volume (Bld) [Entitic vol]7.6 fL7 - 12 [facility] HealthPlatelets (Bld) [#/Vol]183 10*3/[facility] HospitalRBC (Bld) [#/Vol]3.94 10*6/[facility] HospitalWBC corrected for nucl RBC Auto (Bld) [#/Vol]4.0[facility] & HospitalGlucose Glucometer (BldC) [Mass/Vol]on 44-51-3158Uzaqcmq [Mass/Vol]309 mg/sTCijb75 - 99 mg/dLNorwalk Memorial HospitalInterpretation and review of laboratory resultsAbBrooke Glen Behavioral HospitalGlucose [Mass/Vol]236 mg/mSLwkd62 - 99 mg/dLNorwalk Memorial Hospital Interpretation and review of laboratory resultsAbThedaCare Regional Medical Center–AppletonMagnesiumon 02-82-1533Jgrawwwhm [Mass/Vol]2.0 mg/dL1.8 - 2.6 mg/dLNorwalk Memorial HospitalNo Panel Informationon 61-17-7785XemPsfsgyMercy Health Clermont HospitalBasic Metabolic Panelon 34-27-6134Encer gap [Moles/Vol]10 mmol/L5 - 15 mmol/[facility] Memorial HospitalCalcium [Mass/Vol]8.3 mg/dLLow8.5 - 10.5 mg/dL [facility] HospitalChloride [Moles/Vol]100 mmol/L98 - 109 mmol/[facility] Memorial HospitalCO2 [Moles/Vol]25 mmol/L22 - 32 mmol/[facility] System Creatinine [Mass/Vol]0.87 mg/dL0.40 - 1.00 mg/dLNorwalk Memorial HospitalComment on above:METHOD TRACEABLE TO IDAZ STANDARDeGFR (CKD-EPI)non-race dedusijtq79- [facility] HospitalComment on above: Reported eGFR is based on the CKD-EPI 2020 equation that does not use a race coefficient. Glucose [Mass/Vol]301 mg/jGXjoe15 - 99 mg/dLNorwalk Memorial Hospital Interpretation and review of laboratory resultsAbnormalNorwalk Memorial Hospital Potassium [Moles/Vol]4.0 mmol/L3.5 - 5.0 mmol/[facility]compass Healthodium [Moles/Vol]135 mmol/L134 - 146 mmol/[facility] Memorial HospitalUrea nitrogen [Mass/Vol]28 mg/dLHigh5 - 23 mg/dLNorwalk Memorial HospitalCB without diffon 98-47-7952Kxkrvgfdnur distribution width (RBC) [Ratio]13.4 %11.5 - 15.0 % [facility] HospitalHematocrit (Bld) [Volume fraction]36.6 %35 - 47 % [facility] HospitalHemoglobin (Bld) [Mass/Vol]12.3 g/dL11.7 - 15.5 g/dL [facility] Clermont HospitalH (RBC) [Entitic mass]28.9 pg27 - 34 [facility] HospitalMCHC (RBC) [Mass/Vol]33.6 g/dL32 - 36 g/dLNorwalk Memorial HospitalMCV (RBC) [Entitic vol]86 fL80 - 100 [facility] HealthPlatelet mean volume (Bld) [Entitic vol]7.4 fL7 - 12 [facility] HealthPlatelets (Bld) [#/Vol]220 10*3/[facility] HospitalRBC (Bld) [#/Vol]4.26 10*6/[facility] HospitalWBC corrected for nucl RBC Auto (Bld) [#/Vol]5.1PPhoenixville HospitalGlucose Glucometer (BldC) [Mass/Vol]on 31-95-0878Pftqlwm [Mass/Vol]283 mg/dEGmph89 - 99 mg/dLNorwalk Memorial HospitalGlucose [Mass/Vol]269 mg/gAYqde95 - 99 mg/dLNorwalk Memorial HospitalInterpretation and review of laboratory resultsAbnoWills Eye HospitalGlucose [Mass/Vol]402 mg/dLCritically high65 - 99 mg/dLNorwalk Memorial Hospital Interpretation and review of laboratory resultsAbThedaCare Regional Medical Center–AppletonGlucose [Mass/Vol]325 mg/oWEuee81 - 99 mg/dLNorwalk Memorial HospitalInterpretation and review of laboratory resultsAbBrooke Glen Behavioral HospitalMagnesiumon 17-35-3728Zrugxypnn [Mass/Vol] 1.9 mg/dL1.8 - 2.6 mg/dLNorwalk Memorial HospitalNo Panel Informationon 12-22-2023 [facility] HospitalBasic Metabolic Panelon 83-71-7812Ucalf gap [Moles/Vol]9 mmol/L5 - 15 mmol/LPrFort Hamilton HospitalCalcium [Mass/Vol]8.7 mg/dL8.5 - 10.5 mg/dLNorwalk Memorial HospitalChloride [Moles/Vol]96 mmol/LLow98 - 109 mmol/L [facility] HospitalCO2 [Moles/Vol]29 mmol/L22 - 32 mmol/LProMedica Rehabilitation Institute Of MichiganCreatinine [Mass/Vol]0.80 mg/dL0.40 - 1.00 mg/dLNorwalk Memorial Hospital Comment on above:METHOD TRACEABLE TO IDMS STANDARDeGFR (CKD-EPI)non-race dependent- [facility] HospitalComment on above: Reported eGFR is based on the CKD-EPI 2020 equation that does not use a race coefficient. Glucose [Mass/Vol]340 mg/rVLyar30 - 99 mg/dLNorwalk Memorial Hospital Interpretation and review of laboratory resultsAbnoUNC Health Pardee Potassium [Moles/Vol]4.2 mmol/L3.5 - 5.0 mmol/[facility], [facility]compass Healthodium [Moles/Vol]134 mmol/L134 - 146 mmol/[facility] Memorial HospitalUrea nitrogen [Mass/Vol]27 mg/dLHigh5 - 23 mg/dLNorwalk Memorial HospitalCBC without diffon 73-77-5995Vfqjzujrrjf distribution width (RBC) [Ratio]13.2 %11.5 - 15.0 % [facility] HospitalHematocrit (Bld) [Volume fraction]36.6 %35 - 47 % [facility] HospitalHemoglobin (Bld) [Mass/Vol]12.6 g/dL11.7 - 15.5 g/dL [facility] HospitalMCH (RBC) [Entitic mass]29.0 pg27 - 34 [facility] HospitalMCHC (RBC) [Mass/Vol]34.3 g/dL32 - 36 g/dLNorwalk Memorial HospitalMCV (RBC) [Entitic vol]85 fL80 - 100 [facility] HealthPlatelet mean volume (Bld) [Entitic vol]7.3 fL7 - 12 [facility] HealthPlatelets (Bld) [#/Vol]213 10*3/[facility] HospitalRBC (Bld) [#/Vol]4.33 10*6/[facility] HospitalWBC corrected for nucl RBC Auto (Bld) [#/Vol]5.0[facility] & HospitalGlucose Glucometer (BldC) [Mass/Vol]on 27-30-7203Drzyywr [Mass/Vol]363 mg/yGRfii77 - 99 mg/dLNorwalk Memorial HospitalInterpretation and review of laboratory resultsAbnoWills Eye HospitalGlucose [Mass/Vol]323 mg/eWMypq79 - 99 mg/dLNorwalk Memorial Hospital Interpretation and review of laboratory resultsAbnoAurora Medical Center in SummitGlucose [Mass/Vol]307 mg/rGCsni09 - 99 mg/dLNorwalk Memorial HospitalInterpretation and review of laboratory resultsAbnoWills Eye HospitalGlucose [Mass/Vol]on 12-21-2023 Interpretation and review of laboratory resultsAbnoAurora Medical Center in SummitGlucose random or fastingon 53-02-6014Slawzcp [Mass/Vol] 409 mg/dLCritically high65 - 99 mg/dLNorwalk Memorial HospitalMagnesiumon 13-77-1628Ciriqcerb [Mass/Vol]1.9 mg/dL1.8 - 2.6 mg/dLNorwalk Memorial HospitalNo Panel Informationon 55-49-9813AgrDxmbglMercy Health Clermont HospitalAcetone, (BetaHydroxybutyrate, Ketone) quantitative, serumon 32-03-3916Vdls hydroxybutyrate [Moles/Vol]0.14 mmol/L0.02 - 0.27 mmol/LPrFort Hamilton Hospital Beta hydroxybutyrate [Moles/Vol]on 15-66-9479ShlDjizumMercy Health Clermont HospitalCBC auto differentialon 81-62-8398Imufrdjic (Bld) [#/Vol]0.0 10*3/uLNorwalk Memorial HospitalBasophils/100 WBC (Bld)0.5 %[facility] HospitalEosinophils (Bld) [#/Vol]0.1 10*3/uLNorwalk Memorial HospitalEosinophils/100 WBC (Bld)1.1 %[facility] HospitalErythrocyte distribution width (RBC) [Ratio]13.6 %11.5 - 15.0 % [facility] HospitalHematocrit (Bld) [Volume fraction]40.4 %35 - 47 % [facility] HospitalHemoglobin (Bld) [Mass/Vol]13.2 g/dL11.7 - 15.5 g/dL [facility] HospitalLymphocytes (Bld) [#/Vol]2.3 10*3/uLNorwalk Memorial HospitalLymphocytes/100 WBC (Bld)37.6 %[facility] HospitalMCH (RBC) [Entitic mass]28.8 pg27 - 34 [facility] HospitalMCHC (RBC) [Mass/Vol]32.8 g/dL32 - 36 g/dLNorwalk Memorial HospitalMCV (RBC) [Entitic vol]88 fL80 - 100 [facility] HealthMonocytes (Bld) [#/Vol]0.4 10*3/[facility] Monocytes/100 WBC (Bld)6.3 %[facility] HospitalNeutrophils (Bld) [#/Vol]3.3 10*3/[facility] HospitalNeutrophils/100 WBC (Bld)54.5 %[facility] HospitalPlatelet mean volume (Bld) [Entitic vol]7.6 fL7 - 12 [facility] SystemPlatelets (Bld) [#/Vol]227 10*3/[facility] HospitalRBC (Bld) [#/Vol] 4.60 10*6/[facility] HospitalWBC corrected for nucl RBC Auto (Bld) [#/Vol] 6.1PPaoli HospitalComprehensive metabolic panelon 09-86-0691Idbzuzy [Mass/Vol]3.4 g/dL3.2 - 5.3 g/dLNorwalk Memorial HospitalALP [Catalytic activity/Vol]91 U/L39 - 130 U/[facility] SystemALT No additional P-5'-P [Catalytic activity/Vol]23 U/L0 - 31 U/[facility] SystemAnion gap [Moles/Vol]12 mmol/L5 - 15 mmol/[facility] SystemAST [Catalytic activity/Vol]17 U/L0 - 41 U/[facility] HospitalBilirubin [Mass/Vol]0.4 mg/dL0.3 - 1.2 mg/dL[facility] SystemCalcium [Mass/Vol]9.0 mg/dL8.5 - 10.5 mg/dLNorwalk Memorial HospitalChloride [Moles/Vol]87 mmol/LLow98 - 109 mmol/[facility] SystemCO2 [Moles/Vol]24 mmol/L22 - 32 mmol/L [facility] HospitalCreatinine [Mass/Vol]1.17 mg/dLHigh0.40 - 1.00 mg/dL [facility] HospitalComment on above:METHOD TRACEABLE TO IDMS STANDARDeGFR (CKD-EPI)non-race qhrsmevhb19Lqe- PINRangely District Hospital Health SystemComment on above: Reported eGFR is based on the CKD-EPI 2020 equation that does not use a race coefficient. Glucose [Mass/Vol]928 mg/dLCritically high65 - 99 mg/dLNorwalk Memorial Hospital Interpretation and review of laboratory resultsAbUpstate University Hospital Potassium [Moles/Vol]4.7 mmol/L3.5 - 5.0 mmol/LProMedsouth baldwin regional medical center Health SystemProtein [Mass/Vol]7.5 g/dL6.0 - 8.0 g/dLDuke Raleigh Hospitalodium [Moles/Vol]123 mmol/BYch008 - 146 mmol/[facility] Memorial HospitalUrea nitrogen [Mass/Vol]31 mg/dL High5 - 23 mg/dLSelect Specialty Hospital - McKeesportD-Dimeron 59-28-0092Vymddn D-dimer DDU (PPP) [Mass/Vol][facility] HospitalComment on above: Results <255 ng/mL DDU: The presence of a VTE can safely be excluded with a negative D-Dimer result and Wells score. A negative result doesn't exclude the possibility of DIC. The test be repeated along with other diagnostic tests if the patient's symptoms persist or worsen. [email or web address] ECG 12 leadon 69-07-3188CWCBWBEHVEWKBKTxtWnxkhu Health SystemFibrin D-dimer DDU (PPP) [Mass/Vol]on 44-35-2292AhwLwivhxMercy Health Clermont HospitalGlucose Glucometer (BldC) [Mass/Vol]on 19-71-4447Zpteojn [Mass/Vol]350 mg/nYVowd43 - 99 mg/dLNorwalk Memorial HospitalInterpretation and review of laboratory resultsAbBrooke Glen Behavioral HospitalGlucose [Mass/Vol]mg/dLCritically high65 - 99 mg/dLNorwalk Memorial HospitalComment on above:SEE LAB RESULTS FOR CONFIRMATION Interpretation and review of laboratory resultsAbThedaCare Regional Medical Center–AppletonGlucose [Mass/Vol]mg/dLCritically high65 - 99 mg/dL [facility] HospitalComment on above:SEE LAB RESULTS FOR CONFIRMATION Interpretation and review of laboratory resultsAbnoAurora Medical Center in SummitGlucose [Mass/Vol]mg/dLCritically high65 - 99 mg/dL [facility] HospitalComment on above:SEE LAB RESULTS FOR CONFIRMATION Interpretation and review of laboratory resultsAbnoAurora Medical Center in SummitNatriuretic peptide B [Mass/Vol]on [id number] peptide B (Bld) [Mass/Vol]10 pg/mLNINF - 100.0 pg/mLValley Forge Medical Center & HospitalPOCT Nursing Urine Macroscopic UAon [id number] Ql (U)NegativeNegative^NegativeNorwalk Memorial HospitalGlucose [Mass/Vol]mg/dL AbnormalNegative^Negative mg/dLNorwalk Memorial HospitalHemoglobin Ql (U)Negative Negative^NegativeNorwalk Memorial HospitalInterpretation and review of laboratory resultsAbnoUNC Health PardeeKetones (U) [Mass/Vol]Negative Negative^Negative mg/dLNorwalk Memorial HospitalLeukocyte esterase Test strip Ql (U)NegativeNegative^NegativeUniversity [facility]als [facility] SystemNitrite Ql (U)Positive AbnormalNegative^NegativeUniversity Hospitals Geneva Medical Center SystempH (U)5.0 [pH]5.0 - 8.5PMercy Health Clermont HospitalProtein Ql (U)NegativeNegative^Negative mg/dLDuke Raleigh Hospitalpecific gravity (U) [Rel density]<=1.0051.003 - 1.035Norwalk Memorial HospitalUrobilinogen Qn (U)0.2NINFSelect Specialty Hospital - McKeesport Troponin I, High Sensitivityon 02-20-3521Hfzzwjdo I.cardiac High sensitivity method [Mass/Vol]ng/LNINF - 16 ng/LProMedica Memorial Hospital SystemTroponin I, High Sensitivity 1 Houron 83-28-9407Sehrdscj I.cardiac High sensitivity method [Mass/Vol]3 ng/LNINF - 16 ng/LProMedica Memorial Hospital SystemTroponin I.cardiac High sensitivity method [Mass/Vol]on 42-86-7978QcqFnjptpAurora Valley View [facility] SystemXR Chest Single viewon 63-91-7298Fuevpb view chest History:sob Difficulty breathing, shortness of [...] Aliya Gan MD on 12/20/2023 5:35 PM [facility] Garden City HospitalRadiology Study observation (narrative)Norwalk Memorial HospitalXR Chest Single viewOrdered By: Aliya Gan on 61-95-7319XmpWftwhqMercy Health Clermont Hospital Work Phone: Coding Summaryon 75-81-9462Lsttih SummaryMLBase 64 VanyuchzFZe6gTl+PGhlYWQ+KV6GTWPpB98bzTHliI8uC4QIBVyRKcapGVFYRBxTJfBvttCnBC2jiCJc ZXJu [file] ZTo (more content not included)...[facility] [place] HospitalCoding Summaryon 34-75-4305Gewtaf SummaryHTMLBase 64 WpxltkhtDMv8nDs+PGhlYWQ+BY9OLFGkR98mtNWdgS5xX2XFIGkXOtxdYSJAHQaNHbIcfjOvSC5inWQl ZXJu [file] ci1 (more content not included)...NormalCleveland Clinic Union HospitalConsent Formson 84-42-2989Mieazke [id number]#1.00[facility] HospitalDischarge Instructionson 58-46-8932Udsuebtdy Instructions [id number]#1.00[facility] Anesthesia Noteon 23-43-8103Xvrcndcdgp NotePatient: CARISSA SANTOS Age: 43 years Sex: FEMALE : 1980 Associated Diagnoses: None Author: Ryan Abrams MD Postoperative Information Anesthetic utilized: Monitored anesthesia care. Assessment Anesthetic outcome No anesthetic complications noted. Plan Transfer/ Discharge: Patient can be discharged from PACU when criteria met. Condition good. [Electronically Signed on: 09/25/2023 08:49 EST] Ryan Abrams MD [Verified on: 09/25/2023 08:49 EST] Ryan Abrams MDMadison HealthAnesthesia NotePatient: CARISSA SANTOS Age: 43 years Sex: [...] history): All Problems Diabetes / SNOMED CT 304076589 / Confirmed HTN (hypertension) / SNOMED CT 9741888818 / Confirmed Histories Family History: No family history items have been selected or recorded. Procedure history: Genital warts (196545907). Cholecystectomy (05117255). Social History Electronic Cigarette/Vaping Assessment Electronic Cigarette [...] Oriented. Review / Management Laboratory Results Plan [place] [employer] Anesthesiologists#(ASA) physical status classification: Class [...] [Verified on: 09/25/2023 07:49 EST] Ryan Abrams MDMadison HealthInpatient Patient Summaryon 09-25-2023 [place] [address] Patient Discharge Instructions Name: ANGELA CARISSADARRYL TENA : 1980 Patient Address: [address] [place] [address] Primary Care Provider: Name: DIAZ DALTON After you are discharged if you find you have any questions, please, call [phone] ext [phone] to speak to a nurse. Discharge Diagnosis: [...] problems; contact the [facility] 27/03 Crisis Hotline -Text 4HMKZ sl [phone]. If you received any narcotics, sedation, or [...] or sign any legal documents [facility] would like to thank you for allowing us to assist you with your healthcare needs.The following includes patient education materials and information regarding your injury/illness. CARISSA SANTOS has been given the following list of follow-up instructions, prescriptions, andpatient education materials: Follow-up Instructions With: Address: When: [address] [place] [address] Business (1) 10/05/2023 11:00 AM [...] Contact your doctor pr (more content not included)...[facility] Intraoperative Recordon 86-13-4016IJYS Intraoperative RecordMAGR Intra-Op Record Summary Primary Physician: Gary Miller DO Finalized Date/Time: 09/25/23 08:48:16 Pt. Name: CARISSA SANTOS/Sex: 1980 FEMALE Med Rec #: [id number] Physician: Gary Miller DO Financial #: [id number] Pt. Type: D Room/Bed: / Admit/Disch: 09/25/23 [...] Andrew DO Role Performed Surgeon - Primary Spa Consultant Anesthesiologist of Record Time In 09/25/23 08:10:00 09/25/23 08:10:00 09/25/23 08:10:00 Time Out 09/25/23 08:38:00 09/25/23 08:41:00 09/25/23 08:41:00 Procedure Carpal Tunnel Carpal Tunnel Carpal Tunnel Release(Left) Release(Left) Release(Left) Last Modified By: Allyson Alfred RN, Lauren L RN Wheeler, Lauren L RN 09/25/23 08:43:33 09/25/23 08:43:21 09/25/23 08:43:21 Entry 4 Entry 5 Case Attendee Dayna Roberson CST, CST, Kelly CST CSFA Role Performed [employer] Combination Teacher Scrub Relief Time In 09/25/23 08:10:00 09/25/23 [...] Lauren L RN, Ryan Abrams MD, Da SALES AND SERVICE TECHNICIAN, Dayna JJ CSFA, Mila Wyatt SALES AND SERVICE TECHNICIAN Last Modified By: Allyson Alfred RN 09/25/23 [...] Uncrossed? Yes Press Points (more content not included)...[facility] Postoperative Recordon 82-14-2929JJWV Postoperative RecordMAGR Phase II Record Summary Primary Physician: Gary Miller DO Finalized Date/Time: 09/25/23 10:39:28 Pt. Name: CARISSA SANTOS/Sex: 1980 FEMALE Med Rec #: [id number] Physician: Gary Miller DO Financial #: [id number] Pt. Type: D Room/Bed: / Admit/Disch: 09/25/23 [...] Signatures Signed By: Jennyfer Gresham RN 09/25/23 10:39NoParkview Health [facility] Preoperative Recordon 27-02-5719GLPU Preoperative RecordMAGR Pre-Op Record Summary Primary Physician: Gary Miller DO Finalized Date/Time: 09/25/23 08:48:38 Pt. Name: CARISSA SANTOSO.B./Sex: 1980 FEMALE Med Rec #: [id number] Physician: Gary Miller DO Financial #: [id number] Pt. Type: D Room/Bed: / Admit/Disch: 09/25/23 [...] Signatures Signed By: Allyson Alfred RN 09/25/23 08:48Madison HealthPatient Handouton 90-75-9464Uwxlgsa HandoutDR. PAUL'S POST OPERATIVE CARPAL TUNNEL INSTRUCTIONS: SURGEON'S WRITTEN INSTRUCTIONS: 1. Keep your hand elevated above your elbow for the first 24 hours after surgery. 2. Wiggle your fingers frequently while awake. 3. DO NOT lift heavy objects or liability claims adjuster forcefully with your hand. 4. Change your [...] or concerns, please call the office at [phone]. 7. Follow up as scheduled.ProMedica Flower Hospitalancy Test Serum 1on 78-19-4596Sxfy Serum Internal ControlOKMadison HealthComment on above: Performed By: #### [id number] ####[facility] (DEFAULT)[address] [place] [address] 25898Uhkckjacd Test Serum QualNegativeMadison HealthComment on above:Performed By: #### [id number] ####[facility] (DEFAULT)[address] [place] [address] 14305Cekdsibt Note - Nurseon 76-59-2268Eomyhylw Note - NurseSpoke with pt and informed her to be here at 0630 and NPO after MN, she verbalizes understanding. [Electronically Signed on: 09/22/2023 09:47 EST] Kalyani Ortiz RN [Verified on: 09/22/2023 09:47 EST] Kalyani Ortiz [facility] Systemess Note - Nurseon 09-15-2023 Progress Note - NurseDr Lares reviews pt chart and no new orders were received. [Electronically Signed on: 09/15/2023 11:46 EST] Kalyani Ortiz RN [Verified on: 09/15/2023 11:46 EST] Kalyani Ortiz RNMain Campus Medical Centeress Note - Nurseon 09-14-2023 Progress Note - NursePAT review done per Dr. Lares, order received. [Electronically Signed on: 09/14/2023 14:38 EST] Katelyn Moon RN [Verified on: 09/14/2023 14:38 EST] Katelyn Moon RNNormalSelect Medical [facility].Auto Diff 1on 07-41-5183Zuxb Casey %4 % Normal1-12Magruder HospitalComment on above:Performed By: #### [id number], [id number], [id number] ####[facility] (DEFAULT)[address] [place] [address] 74594Rokg Abs#0.0 c41Nlkoex5.0-0.2Magruder HospitalComment on above: Performed By: #### [id number], [id number], [id number] ####[facility] (DEFAULT)[address] [place] [address] 30786Wpzunlsuq/100 WBC (Bld)0.8 % Normal0.2-2.0Maun[facility] hospitals [facility] HospitalComment on above:Performed By: #### [id number], [id number], [id number] ####[facility] (DEFAULT)[address] [place] [address] 51045Fik Abs#0.1 j85Mjikvz7.0-0.4Ma[facility] HospitalComment on above: Performed By: #### [id number], [id number], [id number] ####[facility] (DEFAULT)[address] [place] [address] 79565Kgxmyikbecm/100 WBC (Bld)1.2 % Normal0.9-4.0Maun[facility] hospitals [facility] HospitalComment on above:Performed By: #### [id number], [id number], [id number] ####[facility] (DEFAULT)[address] [place] [address] 57019Maajx Abs#2.0 p15Hvliuj7.3-2.9[facility] HospitalComment on above:Performed By: #### [id number], [id number], [id number] ####[facility] (DEFAULT)[address] [place] [address] 46553Dvclbtlzakm/100 WBC (Bld)40 % Cjyoer91-47Dvmazzus HospitalComment on above:Performed By: #### [id number], [id number], [id number] ####[facility] (DEFAULT)[address] [place] [address] 00544Faha Abs#0.2 m82Lhhcxi2.0-0.8[facility] HospitalComment on above: Performed By: #### [id number], [id number], [id number] ####[facility] (DEFAULT)[address] [place] [address] 38352Bxzm Abs#2.7 x66Iawqtp5.5-9.2 [facility] HospitalComment on above:Performed By: #### [id number], [id number], [id number] ####[facility] (DEFAULT)[address] [place] [address] 98645 Neutrophils/100 WBC (Bld)54 %Pivjdp24-31Slizonre HospitalComment on above: Performed By: #### [id number], [id number], [id number] ####[facility] (DEFAULT)[address] [place] [address] 25047HBV Standardon 72-99-1322tXVR Non AA>60Invalid Interpretation CodeSelect Medical [facility] HospitalComment on above:Performed By: #### [id number], [id number], [id number] ####[facility] (DEFAULT)[address] [place] [address] 15512rYXD AA>60Invalid Interpretation CodeSelect Medical [facility] [place] HospitalComment on above:Performed By: #### [id number], [id number], [id number] ####[facility] (DEFAULT)[address] [place] [address] 87768Lbhld gap [Moles/Vol]10.4 mmol/LNormal5.0-19.0[facility] HospitalComment on above:Performed By: #### [id number], [id number], [id number] ####[facility] (DEFAULT)[address] [place] [address] 04571Yxbekni [Mass/Vol]8.9 mg/dLNormal8.9-10.3Mmercy health will[facility] hospital HospitalComment on above:Performed By: #### [id number], [id number], [id number] ####[facility] (DEFAULT)[address] [place] [address] 23110Ihunljhe [Moles/Vol]102 mmol/JMelsvx860-423Exbcfahf HospitalComment on above:Performed By: #### [id number], [id number], [id number] ####[facility] (DEFAULT)[address] [place] [address] 42225GN6 [Moles/Vol]27 mmol/SZaemcg42-49Wobtcsdp HospitalComment on above:Performed By: #### [id number], [id number], [id number] ####[facility] (DEFAULT)[address] [place] [address] 35397Hyoiquddvn [Mass/Vol]0.76 mg/dLNormal0.60-1.30[facility] HospitalComment on above:Performed By: #### [id number], [id number], [id number] ####[facility] (DEFAULT)[address] [place] [address] 72903Buffztm [Mass/Vol]276.0 mg/sOXbhr99.0-118.0[facility] HospitalComment on above:Performed By: #### [id number], [id number], [id number] ####[facility] (DEFAULT)[address] [place] [address] 67467Eyzvkdemhw 282 mOsm/LInvalid Interpretation CodeSelect [facility] [place] HospitalComment on above:Performed By: #### [id number], [id number], [id number] ####[facility] (DEFAULT)[address] [place] [address] 58667Avpajcpja [Moles/Vol]4.4 mmol/LNormal3.6-5.1 [facility] HospitalComment on above:Performed By: #### [id number], [id number], [id number] ####[facility] (DEFAULT)[address] [place] [address] 26458 Sodium [Moles/Vol]135.0 mmol/QYxt565.0-144.0[facility] HospitalComment on above: Performed By: #### [id number], [id number], [id number] ####[facility] (DEFAULT)[address] [place] [address] 61566Kcow nitrogen [Mass/Vol]18 mg/dL Normal8-26[facility] HospitalComment on above:Performed By: #### [id number], [id number], [id number] ####[facility] (DEFAULT)[address] [place] [address] 59046Lzta nitrogen/Creatinine [Mass ratio]23.6 mg/mgHigh4.6-16.2 [facility] HospitalComment on above:Performed By: #### [id number], [id number], [id number] ####[facility] (DEFAULT)[address] [place] [address] 64371 CBC w/ Auto Diffon 63-84-1854Dhyakhnrytv distribution width (RBC) [Ratio]13.5 % Quuzwh24.5-15.0[facility] HospitalComment on above:Performed By: #### [id number], [id number], [id number] #### [facility] (DEFAULT) [address] [place] [address] 72900Ikxibonjep (Bld) [Volume fraction]42.9 %High33.7-40.4 [facility] HospitalComment on above:Performed By: #### [id number], [id number], [id number] #### [facility] (DEFAULT) [address] [place] [address] 05460Gxwkgsantd (Bld) [Mass/Vol]14.1 g/zOThaipi97.3-15.9 [facility] HospitalComment on above:Performed By: #### [id number], [id number], [id number] #### [facility] (DEFAULT) [address] [place] [address] 53497Zsb Diff?AutoInvalid Interpretation CodeCleveland Clinic Union Hospital Comment on above:Performed By: #### [id number], [id number], [id number] #### [facility] (DEFAULT) [address] [place] [address] 27686SRL (RBC) [Entitic mass]28 vjQarsbd51-86Aocizorn Hospital Comment on above:Performed By: #### [id number], [id number], [id number] #### [facility] (DEFAULT) [address] [place] [address] 20298EQXA (RBC) [Mass/Vol]33 g/bRDufarn01-00Yrqnwuzq Hospital Comment on above:Performed By: #### [id number], [id number], [id number] #### [facility] (DEFAULT) [address] [place] [address] 60089ODO (RBC) [Entitic vol]87 jRStkkah54-121Nbafddup Hospital Comment on above:Performed By: #### [id number], [id number], [id number] #### [facility] (DEFAULT) [address] [place] [address] 64404Pcsigmyz548 v42Rmgzbf220-811Zfbbxbfl HospitalComment on above:Performed By: #### [id number], [id number], [id number] #### [facility] (DEFAULT) [address] [place] [address] 30967Oiuyimfs mean volume (Bld) [Entitic vol]6.9 fLNormal 6.3-10.2MUC HealthComment on above:Performed By: #### [id number], [id number], [id number] #### [facility] (DEFAULT) [address] [place] [address] 49000SDA6.95 w68Ihvotv6.70-5.30[facility] HospitalComment on above:Performed By: #### [id number], [id number], [id number] #### [facility] (DEFAULT) [address] [place], [place] [address]NQY0.1 z06Dbcngx2.5-10.5[facility] HospitalComment on above: Performed By: #### [id number], [id number], [id number] #### [facility] (DEFAULT) [address] [place], [place] [address]RZDN HCG QUALon 88-98-8536PVLOJSZBO, QUALNegativeNormal NEGATIVEThe Montalba HospitalComment on above:Performed By: #### PREG #### [facility] [address] [place], [place] [address] Dr. Dipika RappUS PELVIS AND TRANSVAGon 86-82-7038NE PELVIS AND TRANSVAG EXAMINATION: US PELVIS AND [...] Electronically authenticated by: HARVINDER DELEON Date: 2022-12-26 14:02[facility] HospitalOffice Visiton 16-00-8810Rfirpl-up [id number] Carissa Santos 1980 F Date Provider Department Center 12/07/2022 ONEYDA GUERRA MPORTHO Family History Problem Relation Age of Onset Diabetes Mother Leukemia Father Family Status - Relation Status Age at Mother Father Level of Service:53725 [place] POSTOP FOLLOW UP VISIT RELATED TO ORIGINAL PX (GC) Reason for Visit and Comments: Post-op [483][facility] Hospitalon 03-04-0237XRU&P reviewed. The patient was examined and there are no changes to the H&P.Normal The [facility]vue HospitalHPH&P reviewed. The patient was examined and there are no changes to the H&P.[facility] NURSNOTEon 35-51-2279FRVVTPAXGbsfgqmf operative hand warm to touch, and sorin at the bedside to evaluate. Okay for pt to go home, Good capillary refill, soft no swelling noted. [facility] HospitalOPNOTCopper Springs East Hospital 48-79-5440BUQIZFYEDTWSSBGLY SURGERY OPERATIVE REPORT Date of Surgery: 11/21/2022 Surgeon: Robson Paz MD Motorcycle Technician: Sorin Farooq MD Preoperative Diagnosis: Left cubital [...] entirety of the procedure(s). Robson Paz MDNormalUniversity Adena Pike Medical CenterPOCT GLUCOSE METER UNSOLICITED RESULTSon 37-51-0827Foznxrw [Mass/Vol]74 mg/tMLmmjme38-441LzkovfsufkKettering Health SpringfieldComment on above:Result Comment: ythywt941Ckacysxek By: #### [id number] #### [facility] ([facility]) [address] [place], [place] [address]Nuzhvpo [Mass/Vol]53 mg/mXFri39-037ZzicmegtydThe Bellevue HospitalComment on above:Result Comment: mgpxkr187Dpfknniny By: #### [id number] ####[facility] ([facility])[address] [place], [place] [address]Iitogrn [Mass/Vol]73 mg/nFVtuwpv09-026AvhhrgdzfcKettering Health SpringfieldComment on above:Result Comment: xwzkuo109Hlqybunmk By: #### [id number] ####[facility] ([facility])[address] [place], [place] [address]Rgimewx [Mass/Vol]44 mg/dLInvalid Interpretation Efjt86-292HzrrvkhlfdKettering Health SpringfieldComment on above: Result Comment: Critical Value NotedPerformed By: #### [id number] ####[facility] ([facility])[address] [place], [place] [address]Hpqcehy [Mass/Vol]53 mg/jLSru41-266 The [facility] HospitalComment on above:Result Comment: lweber4 Performed By: #### [id number] ####[facility] ([facility])[address] [place], [place] [address]JUzm 75-60-1088JS Attestation signed by Robson Paz MD at [...] Santos is a 42 y.o. 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 5/5, thumb 5/5, interossei 5/5 Sensation: intact [...] intervention - Instructed patient that our surgical services asst reach out regarding future surgical date - Surgery will be performed under regional anesthesia -Return to clinic for surgical intervention -Call the orthopedic office any questions or concerns Michael Ward MD Orthopedic Surgery Resident Physician Pager: [phone] 11/04/22 12:35 PM By using the attestations [...] may be an additional personal documentation from me.NormalUnKettering Health SpringfieldOffice Visiton 59-22-4239Wftgry-up [id number] Carissa Santos 1980 F Date Provider Department Center 11/04/2022 Juhi-ONEYDA PAZ ORTHO MPORTHO Family History Problem Relation Age of Onset Diabetes Mother Leukemia Father Family Status - Relation Status Age at Mother Father Level of Service:78293 [place] OFFICE/OUTPATIENT ESTABLISHED LOW MDM 20-29 MIN Reason for Visit and Comments: Pain [136]NormalUnKettering Health SpringfieldFSHon 64-06-1044BSS34.6 mIU/mLNOhio State Harding HospitalComment on above:Result Comment: Adult Female: Follicular phase 3.5 - 12.5 Ovulation phase 4.7 - 21.5 Luteal phase 1.7 - 7.7 Postmenopausal 25.8 - 134.8Performed By: #### LBCFSH #### [facility] [address] [place] [address] [address] Dipika RappLUTEINIZING HORMONE (LH)on 44-98-7926PQ38.9 mIU/mLNormalThe [facility] HospitalComment on above:Result Comment: Adult Female: Follicular phase 2.4 - 12.6 Ovulation phase 14.0 - 95.6 Luteal phase 1.0 - 11.4 Postmenopausal 7.7 - 58.5Performed By: #### LBCLH #### [facility] [address] [place] [address] Dr. Dipika RappPROLACTINon 31-11-2879Gpfzhzjaw7.6 ng/mLCritically low4.8-23.3The [facility] HospitalComment on above:Performed By: #### PROLAC ####[facility] [address] [place] [address]Dr. Dipika RappCBC AUTO DIFFon 16-24-0974MFXY #0.0 103/ulNormal0.0-0.1[facility] on above:Performed By: #### CBC ####[facility] [address] [address]Dr.Dipika ChangBasophils/100 WBC (Bld)0.4 %Normal 0.2-2.0The [facility] HospitalComment on above:Performed By: #### CBC ####[facility] [address] [address]Dr.Vanessalan ChangEO # 0.1 103/ulNormal0.0-0.7[facility] on above:Performed By: #### CBC ####[facility] [address] [address]Dr. Dipika ChangEosinophils/100 WBC (Bld)0.8 %Critically low0.9-7.0The [facility] HospitalComment on above:Performed By: #### CBC ####[facility] [address] [address]Dr.Dipika ChangErythrocyte distribution width (RBC) [Ratio]12.5 %Nomuwj56.0-15.0[facility] Comment on above:Performed By: #### CBC ####[facility] [address] [place], [place] [address]Dr.Dipika ChangHematocrit (Bld) [Volume fraction]46.2 %Pdldav11.0-48.0The [facility] HospitalComment on above:Performed By: #### CBC ####[facility] [address] [place], [place] [address]Dr.Dipika ChangHemoglobin (Bld) [Mass/Vol]14.9 g/nVItojss04.0-16.0The [facility] HospitalComment on above:Performed By: #### CBC ####[facility] [address] [place], [place] [address]Dr.Dipika ChangIG #0.04 10e3/ulCritically high0.00-0.03The [facility]land District HospitalComment on above:Performed By: #### CBC ####[facility] Z[address] [place], [place] [address]Dr.Dipika ChangIG %0.5 %Normal0.0-0.5The Montalba HospitalComment on above: Performed By: #### CBC ####[facility] Knkldzq[address] [place], [place] [address]Dr.Dipika ChangLYMPH #2.8 103/ulNormal1.2-3.8The [facility] HospitalComment on above:Performed By: #### CBC ####[facility] Cmnf[address]rff[address] [place], [place] [address]Dr.Dipika ChangLymphocytes/100 WBC (Bld)34.7 %Tlecfk76.5-60.0The [facility] HospitalComment on above:Performed By: #### CBC ####[facility] Heoyefjllf[address] [place], [place] [address]Dr.Dipika ChangMANUAL DIFF REQNONormalThe [facility] District HospitalComment on above:Performed By: #### CBC ####[facility] [address] [place] [address]Dr.Dipika RappH (RBC) [Entitic mass]28.3 pgNormal 26.7-34.0The [facility] HospitalComment on above:Performed By: #### CBC ####[facility] Xdefvnaypi[address] [place], [place] [address]Dr. Dipika RappHC (RBC) [Mass/Vol]32.3 g/dWXsrzax13.9-35.2[facility] Comment on above:Performed By: #### CBC ####[facility] Ahokyqdupc[address] [place], [place] [address]Dr.Dipika RappV (RBC) [Entitic vol]87.7 fL Wyxqkm70.0-99.0The [facility] HospitalComment on above:Performed By: #### CBC ####[facility] Yrlttycgkq[address] [place], [place] [address]Dr. Dipika RappMONO #0.4 103/ulNormal0.3-0.8The [facility]ba HospitalComment on above: Performed By: #### CBC ####[facility] Sdtobtruhq[address] [place], [place] [address]DrElin RappMonocytes/100 WBC (Bld)5.0 %Normal 1.7-12.0The [facility] HospitalComment on above:Performed By: #### CBC ####[facility] Igzbjokldq[address] [place], [place] [address]Dr. Dipika RappNEUT #4.7 103/ulNormal1.4-6.5The [facility] HospitalComment on above: Performed By: #### CBC ####[facility] Oaoebgeogt[address] [place], [place] [address]Dr.Dipika RappNeutrophils/100 WBC (Bld)58.6 %Normal 43.0-75.0The [facility] HospitalComment on above:Performed By: #### CBC ####[facility] Tiuwebukuc[address] [place], [place] [address]DrBrian RappPlatelet mean volume (Bld) [Entitic vol]9.1 fLCritically low9.5-13.5 The [facility] HospitalComment on above:Performed By: #### CBC ####[facility] [address] [place] [address]Dr.Dipika RappPLT194 103/awSscrar496-889Cfq [facility] HospitalComment on above:Performed By: #### CBC ####[facility] [address] [place] [address]Dr. Dipika RappRBC5.27 106/ulNormal4.20-5.40The [facility] HospitalComment on above: Performed By: #### CBC ####[facility] [address] [place] [address]Dr.Dipika RappWBC8.0 103/ulNormal4.0-11.0The [facility] HospitalComment on above:Performed By: #### CBC ####[facility] [address] [place] [address]Dr.Dipika RappFREE T4on 34-69-3038Vhmp T4 [Mass/Vol]1.04 ng/dLNormal0.76-1.46[facility] Comment on above:Performed By: #### FT4 #### [facility] [address] [place] [address] Dr. Dipika Curtis 43-93-6761UZF2.420 uIU/mLNormal0.358-3.740[facility]ike Medical CenterComment on above:Performed By: #### TSH #### [facility] [address] [place] [address] Dr. Dipika Mann ACOG PANEL 2: 30 to 65on 07-25-2022..NormalThe [facility] HospitalComhenry ford [facility] on above:Result Comment: Performed at: WBPerformed By: #### [id number] #### [facility] [address] [place] [address] Dr. Dipika Adame Gdln ACOG Ogczmup79-33ZmsvsxShv [facility] HospitalComment on above:Performed By: #### [id number] #### [facility] [address] [place] [address] Dr. Dipika RappDIAGNOSIS:CommentSelect Medical Specialty Hospital [facility] on above: Result Comment: NEGATIVE FOR INTRAEPITHELIAL LESION OR MALIGNANCY. THIS SPECIMEN WAS RESCREENED PART OF OUR AFFILIATE MARKETING MANAGER PROGRAM. Performed at: WBPerformed By: #### [id number] #### [facility] [address] [place] [address] Dr. Dipika RappHPV AptimaNegativeNormalNegativeThe [facility] on above:Result Comment: This nucleic acid amplification test detects fourteen high-risk HPV types (16,18,31,33,35,39,45,51,52,56,58,59,66,68) without differentiation. Performed at: =GPerformed By: #### [id number] #### [facility] [address] [place] [address] Dr. Dipika Jorgensen Genotype ReflexCommentNoGenesis Hospital on above:Result Comment: Criteria not met, HPV Genotype not performed. Performed at: WBPerformed By: #### [id number] #### [facility] [address] [place] [address] Dr. Dipika RappMethodology:CommentSelect Medical Specialty Hospital [facility] on above: Result Comment: This liquid based ThinPrep(R) pap test was screened with the use of an image guided system. Performed at: WBPerformed By: #### [id number] #### [facility] [address] [place] [address] Dr. Dipika RappNote:CommentNoGenesis Hospital on above:Result Comment: The Pap smear is a screening test designed to aid in the detection of premalignant and malignant conditions of the uterine cervix. It is not a diagnostic procedure and should not be used as the sole means of detecting cervical cancer. Both false-positive and false-negative reports do occur. . Performed at: WBPerformed By: #### [id number] #### [facility] [address] [place] [address] Dr. Dipika RappPerformed by:CommentNoGenesis Hospital on above: Result Comment: Dayna Zelaya, Kick Press Operator (ASCP) Performed at: WBPerformed By: #### [id number] #### [facility] [address] [address] [address] Dipika Rapp reviewed by:CommentSelect Medical Specialty Hospital [facility] on above:Result Comment: Amada Burger, Supervisory Kick Press Operator (ASCP) Performed at: WBPerformed By: #### [id number] #### [facility] [address] [address] [address] Dipika RappSpecimen adequacy:CommentSelect Medical Specialty Hospital [facility] on above:Result Comment: Satisfactory for evaluation. Endocervical and/or squamous metaplastic cells (endocervical component) are present. Performed at: WBPerformed By: #### [id number] #### [facility] [address] [address] [address] Dipika Rapp MAMM SCREEN 3D DINAH CADon [id number] MAMM SCREEN 3D DINAH CAD Patient: CARISSA SANTOS Exam Date: 06/22/2022 : 1980 Gender:F Ordering : DR FELIZ BENZ . Admission #: [id number] Family : Order #: [id number] CLICK HERE TO VIEW EXAM RADIOLOGY REPORT [...] Treatments None Family Cancers None LOCATION: [facility] BREAST COMPOSITION: Scattered areas fibroglandular density. [...] by: Harvinder Deleon M.D. on 06/22/2022 at 15:52[facility] HospitalGLYCOHEMOGLOBIN A1Con 34-50-1227QWT RECOMMENDATIONSEE BELOWMercy Health Lorain HospitalComment on above:Result Comment: ADA RECOMMENDED LIMIT 4.0 - 6.0 ADA THERAPEUTIC TARGET < 7.0 ACTION SUGGESTED > 7.0Performed By: #### A1C #### [facility] [address] [address] [address] Dipika RappGlucose [Mass/Vol]163 mg/dLMercy Health Lorain HospitalComment on above:Performed By: #### A1C #### [facility] [address] [address] [address] Dipika RappHbA1c (Bld) [Mass fraction]7.3 %Critically high4.5-6.2The [facility] HospitalComment on above:Performed By: #### A1C #### [facility] [address] [address] [address] Dipika Monroy AUTO DIFFon 46-73-0890MMKJ #0.0 103/ulNormal0.0-0.1The [facility] HospitalComment on above:Performed By: #### CBC ####[facility] [address] [place] [address]Dr.Dipika ChangBasophils/100 WBC (Bld)0.3 %Normal0.2-2.0The [facility] HospitalComment on above:Performed By: #### CBC ####[facility] [address] [place] [address]DrElin ChangEO #0.2 103/ulNormal0.0-0.7The [facility] HospitalComment on above:Performed By: #### CBC ####[facility] [address] [place] [address]Dr.Dipika ChangEosinophils/100 WBC (Bld)1.7 %Normal 0.9-7.0The [facility] HospitalComment on above:Performed By: #### CBC ####[facility] [address] [place] [address]Dr.Vanessazackary Rapp Erythrocyte distribution width (RBC) [Ratio]12.0 %Afeyot79.0-15.0The [facility] HospitalComment on above:Performed By: #### CBC ####[facility] Nmhwiuozeh[address] [place], [place] [address]Dr.Vanessazackary DionteHematocrit (Bld) [Volume fraction]43.0 %Fonvgc67.0-48.0The [facility] HospitalComment on above:Performed By: #### CBC ####[facility] Kubetxsnlw[address] [place], [place] [address]Dr.Vanessazackary RappHemoglobin (Bld) [Mass/Vol]13.6 g/dL Gafaky57.0-16.0The [facility] HospitalComment on above:Performed By: #### CBC ####[facility] [address]ufqwgyxld[address] [place], [place] [address]Dr. Dipika RappIG #0.02 10e3/ulNormal0.00-0.03The [facility] HospitalComment on above: Performed By: #### CBC ####[facility] Olwwinxvay[address] [place], [place] [address]Dr.Dipika RappIG %0.2 %Normal0.0-0.5The [facility] HospitalComment on above:Performed By: #### CBC ####[facility] Zzhqcthdrz[address] [place], [place] [address]Dr.Dipika RappLYMPH #3.5 103/ulNormal1.2-3.8The [facility] HospitalComment on above:Performed By: #### CBC ####[facility] [address]vzaiqr[address] [place], [place] [address]Dr. Dipika RappLymphocytes/100 WBC (Bld)39.2 %Fvuulw32.5-60.0[facility] Comment on above:Performed By: #### CBC ####[facility] [address]uxrkp[address] [place], [place] [address]Dr.Dipika RappMANUAL DIFF REQNONormalThe [facility] HospitalComment on above:Performed By: #### CBC ####[facility] [address] [place] [address]Dr.Dipika RappH (RBC) [Entitic mass]28.6 diTaayzz14.7-34.0The [facility] HospitalComment on above: Performed By: #### CBC ####[facility] Aubhqisbcq[address] [place], [place] [address]Dr.Dipika DionteHC (RBC) [Mass/Vol]31.6 g/dLNormal 29.9-35.2The [facility] HospitalComment on above:Performed By: #### CBC ####[facility] Omlvgsuifd[address] [place], [place] [address]Dr. Dipika RappV (RBC) [Entitic vol]90.3 cKZodgct13.0-99.0[facility] Comment on above:Performed By: #### CBC ####[facility] Ctxbifwdjr[address] [place], [place] [address]Dr.Vanessazackary DionteMONO #0.5 103/ulNormal0.3-0.8 The [facility] HospitalComment on above:Performed By: #### CBC ####[facility] Gqntkhvhou[address] [place], [place] [address]Dr.Vanessazackary Rapp Monocytes/100 WBC (Bld)5.8 %Normal1.7-12.0The [facility] HospitalComment on above: Performed By: #### CBC ####[facility] J[address]mwlahpt[address] [place], [place] [address]Dr.Dipika RappNEUT #4.7 103/ulNormal1.4-6.5The [facility] HospitalComment on above:Performed By: #### CBC ####[facility] Rtghwomyee[address] [place], [place] [address]Dr.Vanessazackary RappNeutrophils/100 WBC (Bld)52.8 %Rrsdzo87.0-75.0The [facility] HospitalComment on above:Performed By: #### CBC ####[facility] Onpugfdkmx[address] [place], [place] [address]Dr.Dipika DiontePlatelet mean volume (Bld) [Entitic vol]9.3 fLCritically low 9.5-13.5The [facility] HospitalComment on above:Performed By: #### CBC ####[facility] [address] [place] [address]DrBrian RappPLT219 103/dfJdtbuc962-184Fzd [facility] HospitalComment on above: Performed By: #### CBC ####[facility] [address] [place] [address]DrElin RappRBC4.76 106/ulNormal4.20-5.40The [facility] HospitalComment on above:Performed By: #### CBC ####[facility] [address] [place] [address]DrElin RappWBC8.8 103/ul Normal4.0-11.0The [facility] HospitalComment on above:Performed By: #### CBC ####[facility] Ddmqphxgki[address] [place], [place] [address]Dr. Dipika RappMEMORIAL HEALTH [facility] GLUCOSEon 49-06-3798Ztkatos [Mass/Vol]51 mg/dL Critically nsw65-821Ish [facility] HospitalComment on above:Performed By: #### POCGLUC #### [facility] [address] [place] [address] Dr. Dipika Ramirez 14(COMP METB)on 40-71-8202Cnykjhm [Mass/Vol]3.1 g/dL Critically low3.4-5.0The [facility] HospitalComment on above:Performed By: #### CMP #### [facility] [address] [place] [address] Dr. Dipika RappAlbumin/Globulin [Mass ratio]0.8 {ratio}NormalThe [facility] HospitalComment on above:Performed By: #### CMP #### [facility] [address] [place] [address] Dr. Dipika TiwariP [Catalytic activity/Vol]86 U/KYzitli38-932Pjg [facility] HospitalComment on above:Performed By: #### CMP #### [facility] [address] [place] [address] Dr. Dipika Zendejas [Catalytic activity/Vol]39 U/XOtykwd94-01Hox [facility] HospitalComment on above:Performed By: #### CMP #### [facility] [address] [place] [address] Dr. Dipika Causeyon gap [Moles/Vol]10.8 mmol/LNormalAdena [facility] Comment on above:Performed By: #### CMP #### [facility] [address] [address] [address] Dipika RappAST [Catalytic activity/Vol]11 U/LCritically nel84-17Sop [facility] HospitalComment on above:Performed By: #### CMP #### [facility] [address] [place] [address] Dr. Dipika RappBilirubin [Mass/Vol]0.1 mg/dLCritically low0.2-1.0The [facility] HospitalComment on above:Performed By: #### CMP #### [facility] [address] [place] [address] Dr. Dipika RappCalcium [Mass/Vol]9.0 mg/dLNormal8.5-10.1[facility] Comment on above:Performed By: #### CMP #### [facility] [address] [place] [address] Dr. Dipika RappChloride [Moles/Vol]104 mmol/HAffksm51-858YhyAdena Pike Medical Center Comment on above:Performed By: #### CMP #### [facility] [address] [place] [address] Dr. Dipika RappCO2 [Moles/Vol]29.4 mmol/YAwxmiu82.0-32.0[facility] Comment on above:Performed By: #### CMP #### [facility] [address] [place] [address] Dr. Dipika RappCreatinine [Mass/Vol]0.67 mg/dLNormal0.55-1.02The [facility] HospitalComment on above:Performed By: #### CMP #### [facility] [address] [place] [address] Dr. Dipika TongGFR-AF GERMAN>60Normal>=60The [facility] HospitalComment on above:Performed By: #### CMP #### [facility] [address] [address] [address] Dipika TongGFR-NON AF GERMAN>60Normal>=60[facility] CenterComment on above:Performed By: #### CMP #### [facility] [address] [address] [address] Dipika RappGlobulin (S) [Mass/Vol]3.9 g/dLNoLancaster Municipal HospitalComment on above:Performed By: #### CMP #### [facility] [address] [address] [address] Dipika RappGlucose [Mass/Vol]142 mg/dLCritically mgtj03-566Hrv [facility] HospitalComment on above:Performed By: #### CMP #### [facility] [address] [address] [address] Dipika RappPotassium [Moles/Vol]4.2 mmol/LNormal3.5-5.1[facility] Comment on above:Performed By: #### CMP #### [facility] [address] [place] [address] Dr. Dipika RappProtein [Mass/Vol]7.0 g/dLNormal6.4-8.2[facility] Comment on above:Performed By: #### CMP #### [facility] [address] [address] [address] Dipika RappSodium [Moles/Vol]140 mmol/NQiwyoi362-945VfsAdena Pike Medical Center Comment on above:Performed By: #### CMP #### [facility] [address] [address] [address] Dipika RappUrea nitrogen [Mass/Vol]22.0 mg/dLCritically high7.0-18.0The [facility] HospitalComment on above:Performed By: #### CMP #### [facility] [address] [address] [address] Dipika RappUrea nitrogen/Creatinine [Mass ratio]32.8 mg/mgNoPerson Memorial Hospitalevue HospitalComment on above:Performed By: #### CMP #### [facility] [address] [address] [address] Dipika Kaur,Aerobe/Anaerobeon 56-24-6589Yhlq,Aerobe/AnaerobeSpecimen Description .ULCER RT ARM Special Requests NOT REPORTED Direct Exam FEW NEUTROPHILS NO BACTERIA SEEN Culture NO GROWTH 5 DAYS Report Status FINAL 10/06/2021[facility], [facility] ShawComment on above:Performed By: #### UA, UMICAO #### [facility] [address] [place], [place] [id number] Corporate Physical Security Supervisor: Quan Wooten to Pathologiston 08-20-2959Iosaw to PathologistSEE [facility] Rivers Medical CenterComment on above: Result Comment: REVIEWING PATHOLOGIST: ELECTRONICALLY SIGNED. HORACIO VILA M.D.Performed By: #### PTT, FIB, PT, LYTE, DBILI, TBIL, RETCT, CBC, LD, HAPT, PATH ####[facility] [address] [place], [place] [id number] Lab Director: Drew Wooten Metabolic Panelon 72-36-4471Cppuv gap [Moles/Vol]14 mmol/L9 - 17 mmol/LMercy HealthCalcium [Mass/Vol]8.3 mg/dLLow8.6 - 10.4 mg/dLMercy HealthChloride [Moles/Vol]111 mmol/LHigh98 - 107 mmol/LMercy HealthCO2 [Moles/Vol]19 mmol/LLow20 - 31 mmol/L [facility] HealthCreatinine [Mass/Vol]1.31 mg/dLHigh0.50 - 0.90 mg/dLMercy HealthGFR Xjghcdop85 mL/minLow>60[facility] HealthGFR Non- Hrvychvb46 mL/minLow >60[facility] HealthGFR/1.73 sq M.predicted MDRD (S/P/Bld) [Vol rate/Area][facility] SpringfieldComment on above:Average GFR for 40-49 years old: 99 mL/min/1.73sq m Chronic Kidney Disease: <60 mL/min/1.73sq m Kidney failure: <15 mL/min/1.73sq m eGFR calculated using average adult body mass. Additional eGFR calculator available at: http://www.Dubizzle/multiple_crcl_2012.htm GFR/1.73 sq M.predicted MDRD (S/P/Bld) [Vol rate/Area]NOT REPORTEDKettering Health Springfield Glucose [Mass/Vol]105 mg/iBKlom36 - 99 mg/dLKettering Health SpringfieldInterpretation and review of laboratory resultsAbnormalKettering Health SpringfieldPotassium [Moles/Vol]3.7 mmol/L 3.7 - 5.3 mmol/LMercy HealthSodium [Moles/Vol]144 mmol/L135 - 144 mmol/LMercy HealthUrea nitrogen (BldV) [Mass/Vol]19 mg/dL6 - 20 mg/dLKettering Health SpringfieldUrea nitrogen/Creatinine (Bld) [Mass ratio]NOT REPORTEDAscension Northeast Wisconsin Mercy Medical CenterBasic Metabolic Profon 10-03-2021(cont.)NormalKindred Hospital LimaComment on above:Result Comment: Average GFR for 40-49 years old: 99 mL/min/1.73sq m Chronic Kidney Disease: <60 mL/min/1.73sq m Kidney failure: <15 mL/min/1.73sq m eGFR calculated using average adult body mass. Additional eGFR calculator available at: http://www.Dubizzle/multiple_crcl_2012.htmPerformed By: ###PRATIBHA FARIAS #### [facility] [address] [place] [address] [employer] Physical [employer] Supervisor: Brandan Ugalde MDAnion gap [Moles/Vol]14 mmol/LNormal9-17[facility] LimaComment on above:Performed By: ###PRATIBHA FARIAS #### [facility] [address] [place] [address] [employer] Physical Security Supervisor: Brandan Ugalde MDCalcium [Mass/Vol]8.3 mg/dLLow8.6-10.4[facility] LimaComment on above:Performed By: #### UA, UMICAO #### [facility] [address] [place] [address] Corporate Physical Security Supervisor: DANIELLE Wootenhloride [Moles/Vol]111 mmol/HSenm95-684NnjodKindred Hospital LimaComment on above:Performed By: #### UA, UMICAO #### [facility] [address] [place] [address] [employer] Physical Security Supervisor: Brandan Ugalde MDCO2 [Moles/Vol]19 mmol/ZUil29-41FmiijKindred Hospital LimaComment on above:Performed By: #### GERMANIA, UMICAO #### [facility] [address] [place] [address] [employer] Physical [employer] Supervisor: DANIELLE Wootenreatinine [Mass/Vol]1.31 mg/dLHigh0.50-0.90 [facility] LimaComment on above:Performed By: #### UA, UMICAO #### [facility] [address] [place] [address] [employer] Physical Security Supervisor: Brandan Ugalde MDGFR, Amer54 mL/minLow>60[facility] LimaComment on above:Performed By: #### GERMANIA, UMICAO #### [facility] [address] [place] [address] [employer] Physical Security Supervisor: Brandan Ugalde MDGFR,non Amer45 mL/minLow>60[facility] LimaComment on above:Performed By: #### GERMANIA, UMICAO #### [facility] [address] [place] [address] [employer] Physical [employer] Supervisor: Brandan Ugalde MDGlucose [Mass/Vol]105 mg/zDFsxz81-18VmxjeSan Luis Obispo General HospitalComment on above:Performed By: #### UA, UMICAO #### [facility] [address] [place] [address] [employer] Physical Security Supervisor: DANIEL Wootenotassium [Moles/Vol]3.7 mmol/LNormal3.7-5.3 [facility] LimaComment on above:Performed By: #### PRATIBHA SOLO #### [facility] [address] [place] [address] [employer] Physical Security Supervisor: Brandan Ugalde MDSodium [Moles/Vol]144 mmol/LDkzlsu700-295NhtgiKindred Hospital LimaComment on above:Performed By: #### PRATIBHA SOLO #### [facility] [address] [place] [address] [employer] Physical [employer] Supervisor: Brandan Ugalde MDUrea nitrogen [Mass/Vol]19 mg/dLNormal6-20[facility] LimaComment on above:Performed By: #### PRATIBHA SOLO #### [address] [address] [employer] Physical Security Supervisor: CHAVO Wooten/CRE RatioNOT REPORTEDNormal9-20[facility] LimaComment on above:Performed By: ###PRATIBHA FARIAS #### [address] [address] [employer] Physical Security Supervisor: JACOB Wootentaging:NOT REPORTEDNormalKindred Hospital LimaComment on above:Performed By: ###PRATIBHA FARIAS #### [address] [address] [employer] Physical Security Supervisor: Brandan Ugalde [facility] – STROUDBC auto differentialon [id number] Eos # 0.22[facility] HealthAbsolute Immature Granulocyte0.00[facility] HealthAbsolute Lymph # 2.04[facility] HealthAbsolute Casey #0.72[facility] HealthBasophils (Bld) [#/Vol]0.00 10*3/uLMercy HealthBasophils/100 WBC (Bld)0 %0 - 2 %[facility] HealthDifferential TypeNOT REPORTEDMercy HealthEosinophils/100 WBC (Bld)4 %1 - 4 %[facility] Hematocrit (Bld) [Volume fraction]34.4 %Low36.3 - 47.1 %[facility] Hemoglobin.gastrointestinal spec 1 Ql (Stl)11.5 g/dLLow11.9 - 15.1 g/dLKettering Health SpringfieldImmature granulocytes/100 WBC (Bld)0 %0[facility] SpringfieldInterpretation and review of laboratory resultsAbnormalKettering Health SpringfieldLymphocytes/100 WBC (Bld)37 %24 - 44 %German HospitalH (RBC) [Entitic mass]28.6 pg25.2 - 33.5 pgGerman HospitalHC (RBC) [Mass/Vol]33.4 g/dL28.4 - 34.8 g/dLGerman HospitalV (RBC) [Entitic vol]85.6 fL82.6 - 102.9 fLKettering Health SpringfieldMonocytes/100 WBC (Bld)13 %High1 - 7 %[facility] Morphology Dontrell (Bld) [Interp]NormalKettering Health SpringfieldNRBC Automated0.00.0 per 100 WBC [facility] SpringfieldPlatelet distribution width (Bld) [Ratio]13.5 %11.8 - 14.4 %[facility] SpringfieldPlatelet EstimateNOT REPORTEDKettering Health SpringfieldPlatelet mean volume (Bld) [Entitic vol]NOT REPORTED8.1 - 13.5 fLKettering Health SpringfieldPlatelets (Bld) [#/Vol]See Reflexed IPF ResultKettering Health SpringfieldRBC (Bld) [#/Vol]4.02 10*6/uL3.95 - 5.11 m/uL [facility] SpringfieldRBC (Bld) [#/Vol]NOT REPORTEDKettering Health SpringfieldSegmented neutrophils/100 WBC (Bld)46 %36 - 66 %[facility]tering Health SpringfieldSegs Absolute2.52MerSkagit Regional HealthWBC (Bld) [#/Vol] 5.5 10*3/uLKettering Health SpringfieldWBC (Bld) [#/Vol]NOT REPORTEDAscension Northeast Wisconsin Mercy Medical CenterCBC with Diffon [id number]. Basophil0.00 k/uLNormal0.0-0.2[facility], HillcrestComment on above:Performed By: #### UAPRATIBHA #### [facility] [address] [place] [address] 15457 [employer] Physical [employer] Supervisor: MDAbs. SugarImm.Granulocyte0.00 k/uLNormal0.00-0.30[facility]red Hospital LimaComment on above:Performed By: #### PRATIBHA SOLO #### [facility] [address] [place] [address] 69071 [employer] Physical Security Supervisor: MDAbs. SugarNeutrophil (Seg)2.52 k/uLNormal1.8-7.7[facility] Hospital LimaComment on above:Performed By: #### PRATIBHA SOLO #### [facility] [address] [place] [address] 12097 [employer] Physical Security Supervisor: Brandan Ugalde MDBasophils/100 WBC (Bld)0 %Normal0-2MSan Luis Obispo General HospitalComment on above:Performed By: #### PRATIBHA SOLO #### [facility] [address] [place] [address] 32370 [employer] Security Supervisor: Brandan Ugalde MDEosinophils (Bld) [#/Vol]0.22 10*3/uLNormal 0.0-0.4[facility] Hospital LimaComment on above:Performed By: #### PRATIBHA SOLO #### [facility] [address] [place] [address] 15407 [employer] Supervisor: Brandan Ugalde MDEosinophils/100 WBC (Bld)4 %Normal1-4[facility] Hospital LimaComment on above:Performed By: #### PRATIBHA SOLO #### [facility] [address] [place] [address] 11144 [employer] Physical Security Supervisor: Tess Wootenture granulocytes/100 WBC (Bld)0 %Normal0 [facility] Hospital LimaComment on above:Performed By: #### PRATIBHA SOLO #### [facility] [address] [place] [address], [place] [address] [employer] Physical Security Supervisor: Brandan Ugalde MDLymphocytes (Bld) [#/Vol]2.04 10*3/uLNormal 1.0-4.8[facility] Hospital LimaComment on above:Performed By: #### UA, UMICAO #### [facility] [address] [place] [address] 50365 [employer] Supervisor: Brandan Ugalde MDLymphocytes/100 WBC (Bld)37 %Uhyfil52-80VuycsKindred Hospital LimaComment on above:Performed By: #### UA, UMICAO #### [facility] [address] [place] [address] 88109 [employer] Supervisor: GAVIN Wootenonocytes (Bld) [#/Vol]0.72 10*3/uLNormal0.1-0.8 [facility] Hospital LimaComment on above:Performed By: #### UA, UMICAO #### [facility] [address] [place] [address] 01380 [employer] Supervisor: GAVIN Wootenonocytes/100 WBC (Bld)13 %High1-7[facility] Hospital LimaComment on above:Performed By: #### UA, UMICAO #### [facility] [address] [place] [address] 43702 [employer] Physical Security Supervisor: GAVIN Wootenorphology Dontrell (Bld) [Interp]NormalNormalKindred Hospital LimaComment on above:Performed By: #### UA, UMICAO #### [facility] [address] [place] [address] 28307 [employer] Physical Security Supervisor: Brandan Ugalde MDNeutrophil (Seg)46 %Ksuzsy50-22HsezuKindred Hospital LimaComment on above:Performed By: #### UA, UMICAO #### [facility] [address] [place] [address] 22913 [employer] Physical Security Supervisor: Brandan Ugalde MDErythrocyte distribution width (RBC) [Ratio]13.5 %Jtkenz99.8-14.4[facility] Hospital LimaComment on above:Performed By: #### PRATIBHA SOLO #### [facility] [address] [place] [address] 67320 [employer] Physical Security Supervisor: Brandan Ugalde MDHematocrit (Bld) [Volume fraction]34.4 %Low 36.3-47.1MSan Luis Obispo General HospitalComment on above:Performed By: #### GERMANIA UMICAO #### [address] [address] [employer] Physical Security Supervisor: Brandan Ugalde MDHemoglobin (Bld) [Mass/Vol]11.5 g/dLLow11.9-15.1 [facility] Hospital LimaComment on above:Performed By: #### COLLEEN SOLOICAO #### [place] [address] [employer] Physical Security Supervisor: GAVIN WootenCH (RBC) [Entitic mass]28.6 lwRcrwcj53.2-33.5 [facility] Hospital LimaComment on above:Performed By: #### GERMANIA UMICAO #### [place] [address] [employer] Physical Security Supervisor: GAVIN WootenCHC (RBC) [Mass/Vol]33.4 g/uMDmpcyy63.4-34.8 [facility] LimaComment on above:Performed By: #### GERMANIA UMICAO #### [address] [address] [employer] Physical Security Supervisor: GAVIN WootenCV (RBC) [Entitic vol]85.6 kHHfbkxe11.6-102.9 [facility] LimaComment on above:Performed By: #### GERMANIA UMICAO #### [facility] [address] [place] [address] 38485 [employer] Physical Security Supervisor: GOLDIE Wooten Automated0.0 per 100 WBCNormal0.0[facility] Hospital LimaComment on above:Performed By: #### PRATIBHA SOLO #### [facility] [address] [place] [address] 83015 [employer] Physical Security Supervisor: Isabell Wooten CountSee Reflexed IPF ResultNormal 138-453Kindred Hospital LimaComment on above:Performed By: #### PRATIBHA SOLO #### [facility] [address] [place] [address] 56657 Corporate Physical Security Supervisor: BAKARI Wooten ([facility]) [#/Vol]4.02 10*6/uLNormal3.95-5.11 [facility] Hospital LimaComment on above:Performed By: #### PRATIBHA SOLO #### [facility] [address] [place] [address] 03614 [employer] Physical Security Supervisor: MISTY Wooten ([facility]) [#/Vol]5.5 10*3/uLNormal3.5-11.3MSan Luis Obispo General HospitalComment on above:Performed By: #### PRATIBHA SOLO #### [facility] [address] [place] [address] 30051 [employer] Physical Security Supervisor: Laxmi Wooten Diff PerformedNOT REPORTEDNormalKindred Hospital LimaComment on above:Performed By: #### PRATIBHA SOLO #### [facility] [address] [place] [address] 17573 [employer] Physical Security Supervisor: GAVIN WootenPVNOT REPORTEDNormal8.1-13.5[facility] Hospital LimaComment on above:Performed By: #### PRATIBHA SOLO #### [facility] [address] [place] [address] 85042 [employer] Physical Security Supervisor: Brandan Madoff, MDPlatelet CommentNOT REPORTEDNormalKindred Hospital LimaComment on above:Performed By: #### PRATIBHA SOLO #### [facility] [address] [place] [address] 09048 [employer] Physical Security Supervisor: BAKARI Wooten morphology finding Nom (Bld)NOT REPORTED NormalMerScripps Memorial HospitalComment on above:Performed By: #### PRATIBHA SOLO #### [facility] [address] [place] [address] 95800 [employer] Physical Security Supervisor: MISTY Wooten MorphologyNOT REPORTEDNormalKindred Hospital LimaComment on above:Performed By: #### PRATIBHA SOLO #### [facility] [address] [place] [address] 09071 [employer] Physical Security Supervisor: Edmund Wooten, Bloodon [id number], BloodSpecimen Description .BLOOD Special Requests L HAND 2ML Culture NO GROWTH 5 DAYS Report Status FINAL 10/03/2021NoWadsworth-Rittman HospitalComment on above:Performed By: #### PRATIBHA SOLO #### [facility] [address] [place] [address] 28323 [employer] Physical Security Supervisor: Edmund Wooten,Bloodon [id number],BloodSpecimen Description .BLOOD Special Requests NOT REPORTED Culture NO GROWTH 5 DAYS Report Status FINAL 10/03/2021NoWadsworth-Rittman HospitalComment on above:Performed By: #### COLLEEN SOLOICAO #### [facility] [address] [place] [address] 78197 [employer] Physical Security Supervisor: DANIELLE Wootenulture, Blood 1on [id number] identified Cx Nom (Unsp spec)NO GROWTH 5 DAYSMercy HealthSpecial RequestsNOT REPORTEDMercy HealthSpecimen Description.BLOODMer HealthMercy HealthCulture, Blood 2on [id number] identified Cx Nom (Unsp spec)NO GROWTH 5 DAYSMercy Health Special RequestsL HAND 2MLMercy HealthSpecimen Description.BLOODAurora Medical Center OshkoshImmature Platelet Fractionon 60-77-8900Sujojzxv, Fluorescence Platelet clumps present, count appears adequate.K[facility]tering Health SpringfieldComment on above: ORDERED BY LABPlatelet, Immature FractionNOT REPORTED1.1 - 10.3 %[facility] Center OshkoshPLT, Immature Fract.on 42-40-9251Lunkeprj, Fluoresc.Platelet clumps present, count appears adequate.Wrgckd945-594PuezbKindred Hospital Lima Comment on above:Result Comment: ORDERED BY LABPerformed By: #### PRATIBHA SOLO #### [employer] [address] [place], [place] [phone] [employer] Physical Security Supervisor: ROSELIA Wooten, Immature Fract.NOT REPORTEDNormal1.1-10.3 [facility] Hospital LimaComment on above:Performed By: #### PRATIBHA SOLO #### [employer] [address] [place], [place] [phone] Corporate Physical Security Supervisor: YARI Wooten Glucose Fingerstickon 99-13-2836Uzjymkh [Mass/Vol]236 mg/jCNnkt82 - 105 mg/dLCleveland Clinic HealthInterpretation and review of laboratory resultsAbnormSpooner HealthGlucose [Mass/Vol]89 mg/dL65 - 105 mg/dLFairfield Medical Center HealthPhosphoruson 70-38-6631Sonpoateg [Mass/Vol]4.2 mg/dL2.6 - 4.5 mg/dLAscension Northeast Wisconsin Mercy Medical CenterPhosphorus, Inorg.on 10-03-2021 Phosphorus, Inorg.4.2 mg/dLNormal2.6-4.5[facility] Hospital LimaComment on above:Performed By: #### PRATIBHA SOLO #### [employer] [address] [place], [place] [phone] Corporate Physical Security Supervisor: DANIELLE Wooten DIFF TOXIN/ANTIGENon 10-02-2021 DIFF AG + TOXINNegativeNEGATIVEKettering Health SpringfieldComment on above:No C. difficile antigen and Toxin Detected.Specimen Description.FECESWestern Wisconsin Health diff Ag + Toxinon 10-02-2021 diff Ag + ToxinNegativeNormalNEGKindred Hospital LimaComment on above:Result Comment: No C. difficile antigen and Toxin Detected.Performed By: #### GERMANIA, PRATIBHA #### [employer] [address] [place] [address] Corporate Physical Security Supervisor: Brandan Ugalde [facility] auto differentialon 73-94-3576Sdxbwxwg Eos # 0.11[facility] Health SpringfieldAbsolute Immature Granulocyte0.08K[facility]tering Health SpringfieldAbsolute Lymph # 1.84MerSkagit Regional HealthAbsolute Casey #0.59MerSkagit Regional HealthBasophils (Bld) [#/Vol]0.03 10*3/uLKettering Health SpringfieldBasophils/100 WBC (Bld)1 %0 - 2 %[facility] SpringfieldDifferential TypeNOT REPORTEDKettering Health SpringfieldEosinophils/100 WBC (Bld)2 %1 - 4 %[facility] Hematocrit (Bld) [Volume fraction]31.2 %Low36.3 - 47.1 %[facility] Hemoglobin.gastrointestinal spec 1 Ql (Stl)10.4 g/dLLow11.9 - 15.1 g/dLKettering Health SpringfieldImmature granulocytes/100 WBC (Bld)2 %Rkjz9IbuijKettering Health SpringfieldInterpretation and review of laboratory resultsAbnormalKettering Health SpringfieldLymphocytes/100 WBC (Bld)35 %24 - 43 %German HospitalH (RBC) [Entitic mass]28.7 pg25.2 - 33.5 pgGerman HospitalHC (RBC) [Mass/Vol]33.3 g/dL28.4 - 34.8 g/dLGerman HospitalV (RBC) [Entitic vol]86.2 fL82.6 - 102.9 fLKettering Health SpringfieldMonocytes/100 WBC (Bld)11 %3 - 12 %[facility] Hospital - Columbus SouthBC Automated0.00.0 per 100 WBCKettering Health SpringfieldPlatelet distribution width (Bld) [Ratio] 13.7 %11.8 - 14.4 %[facility] SpringfieldPlatelet EstimateNOT REPORTEDKettering Health SpringfieldPlatelet mean volume (Bld) [Entitic vol]9.0 fL8.1 - 13.5 fLMercy HealthPlatelets (Bld) [#/Vol]92 10*3/uLLowKettering Health SpringfieldRBC (Bld) [#/Vol]3.62 10*6/uLLow3.95 - 5.11 m/uL [facility] Health SpringfieldRBC (Bld) [#/Vol]NOT REPORTEDKettering Health SpringfieldSegmented neutrophils/100 WBC (Bld)49 %36 - 65 %[facility] SpringfieldSegs Absolute2.58[facility] SpringfieldWBC (Bld) [#/Vol] 5.2 10*3/uLKettering Health SpringfieldWBC (Bld) [#/Vol]NOT REPORTEDAscension Northeast Wisconsin Mercy Medical CenterCB with Diffon 97-91-8638Nuv. Basophil0.03 k/uLNormal0.00-0.20[facility] Hospital LimaComment on above:Performed By: #### PRATIBHA SOLO #### [facility] [address] [place] [address] [employer] Physical Security Supervisor: MDAbs. SugarImm.Granulocyte0.08 k/uLNormal0.00-0.30[facility] Hospital LimaComment on above:Performed By: ###PRATIBHA FARIAS #### [facility] HospitalSoccerFreakz [address] [place] [address] Corporate Physical Security Supervisor: Karma Wooten.Neutrophil (Seg)2.58 k/uLNormal1.50-8.10 [facility] LimaComment on above:Performed By: ###PRATIBHA FARIAS #### [facility] HospitalSoccerFreakz [address] [place] [address] 95829 [employer] Physical Security Supervisor: Brnadan Ugalde MDBasophils/100 WBC (Bld)1 %Normal0-2MSan Luis Obispo General HospitalComment on above:Performed By: ###PRATIBHA FARIAS #### [facility] HospitalSoccerFreakz [address] [place] [address] 42034 [employer] Physical Security Supervisor: Brandan Ugalde MDEosinophils (Bld) [#/Vol]0.11 10*3/uLNormal 0.00-0.44[facility] Hospital LimaComment on above:Performed By: #### FRANK SOLOO #### [facility] [address] [place] [address] 27338 [employer] Physical [employer] Supervisor: Brandan Ugalde MDEosinophils/100 WBC (Bld)2 %Normal1-4[facility] Hospital LimaComment on above:Performed By: #### GERMANIA UMICAO #### [facility] [address] [place] [address] 92337 [employer] Physical Security Supervisor: Brandan Ugalde MDImmature granulocytes/100 WBC (Bld)2 %Qskp0SxzlxKindred Hospital LimaComment on above:Performed By: #### GERMANIA UMICAO #### [facility] [address] [place] [address] 00993 [employer] Physical Security Supervisor: Brandan Ugalde MDLymphocytes (Bld) [#/Vol]1.84 10*3/uLNormal 1.10-3.70[facility] Hospital LimaComment on above:Performed By: #### FRANK SOLOO #### [facility] [address] [place] [address] 19359 [employer] Physical Security Supervisor: Brandan Ugalde MDLymphocytes/100 WBC (Bld)35 %Ogatip58-18JwknnKindred Hospital LimaComment on above:Performed By: #### GERMANIA UMICAO #### [facility] [address] [place] [address] 17507 [employer] Physical Security Supervisor: Brandan Ugalde MDMonocytes (Bld) [#/Vol]0.59 10*3/uLNormal 0.10-1.20[facility] LimaComment on above:Performed By: #### GERMANIA, UMICAO #### [facility] [address] [place] [address] 92936 [employer] Physical Security Supervisor: Brandan Ugalde MDMonocytes/100 WBC (Bld)11 %Normal3-12Mer Crum Medical CenterComment on above:Performed By: #### GERMANIA UMICAO #### [facility] [address] [place] [address] 15634 [employer] Physical Security Supervisor: Brandan Ugalde MDNeutrophil (Seg)49 %Yitxhd01-71JhpbmKindred Hospital LimaComment on above:Performed By: #### COLLEEN SOLOICAO #### [facility] [address] [place] [address] 43722 [employer] Physical [employer] Supervisor: Brandan Ugalde MDErythrocyte distribution width (RBC) [Ratio]13.7 %Qmocsc76.8-14.4[facility] Hospital LimaComment on above:Performed By: #### PRATIBHA SOLO #### [facility] [address] [place] [address] 22554 [employer] Physical Security Supervisor: Brandan Ugalde MDHematocrit (Bld) [Volume fraction]31.2 %Low 36.3-47.1MSan Luis Obispo General HospitalComment on above:Performed By: #### PRATIBHA SOLO #### [address] [address] Corporate Physical Security Supervisor: Brandan Ugalde MDHemoglobin (Bld) [Mass/Vol]10.4 g/dLLow11.9-15.1 [facility] LimaComment on above:Performed By: #### COLLEEN SOLOICAO #### [facility] [address] [place] [address] 46075 [employer] Physical Security Supervisor: GAVIN WootenCH (RBC) [Entitic mass]28.7 qaIvfyqt79.2-33.5 [facility] LimaComment on above:Performed By: #### COLLEEN SOLOICAO #### [facility] [address] [place] [address] 23993 [employer] Physical Security Supervisor: GAVIN WootenCHC (RBC) [Mass/Vol]33.3 g/rZDoryyy11.4-34.8 [facility] LimaComment on above:Performed By: #### GERMANIA UMICAO #### [facility] [address] [place] [address] 80222 [employer] Physical Security Supervisor: GAVIN WootenCV (RBC) [Entitic vol]86.2 eOGcvlgm52.6-102.9 [facility] LimaComment on above:Performed By: #### GERMANIA UMICAO #### [facility] [address] [place] [address] 20241 [employer] Physical Security Supervisor: GOLDIE Wooten Automated0.0 per 100 WBCNormal0.0[facility] Hospital LimaComment on above:Performed By: #### GERMANIA UMJOSEO #### [facility] [address] [place] [address] 41932 [employer] Physical Security Supervisor: Sadaf Wootentejosé luis mean volume (Bld) [Entitic vol]9.0 fL Normal8.1-13.5[facility] Hospital LimaComment on above:Performed By: #### FRANK SOLOO #### [facility] [address] [place] [address] 69307 [employer] Physical Security Supervisor: DANIEL Wootenlatelets (Bld) [#/Vol]92 10*3/lVQfu004-996OebviKindred Hospital LimaComment on above:Performed By: #### GERMANIA UMICAO #### [facility] [address] [place] [address] 28140 Corporate Physical Security Supervisor: Brandan Ugalde MDRBC (Bld) [#/Vol]3.62 10*6/uLLow3.95-5.11[facility] LimaComment on above:Performed By: #### GERMANIA, UMICAO #### [facility] [address] [place] [address] 30898 [employer] Supervisor: Brandan Ugalde MDWBC (Bld) [#/Vol]5.2 10*3/uLNormal3.5-11.3[facility], HillcrestComment on above:Performed By: #### GERMANIA UMJOSEO #### [facility] [address] [place] [address] 08768 [employer] Physical Security Supervisor: Laxmi Wooten Diff PerformedNOT REPORTEDNormalKindred Hospital LimaComment on above:Performed By: #### GERMANIA UMICAO #### [facility] [address] [place] [address] 74799 Corporate Physical Security Supervisor: Isabell Wooten CommentNOT REPORTEDSelect Medical [facility] Rehabilitation Hospital, Edwin ShawComment on above:Performed By: #### GERMANIA, UMJOSEO #### [facility] [address] [place] [address] 66368 [employer] Physical Security Supervisor: BAKARI Wooten morphology finding Nom (Bld)NOT REPORTED NormalKindred Hospital LimaComment on above:Performed By: #### GERMANIA UMICAO #### [facility] [address] [place] [address] 63270 Corporate Physical Security Supervisor: MISTY Wooten MorphologyNOT REPORTEDSelect Medical [facility] Rehabilitation Hospital, Edwin ShawComment on above:Performed By: #### GERMANIA, UMICAO #### [facility] [address] [place] [address] 55567 Corporate Physical Security Supervisor: Eddy Wootenrointestinal Panel, [facility] 10-02-2021 Campylobacter PCRNEGATIVE: No Campylobacter spp. (jejuni [...] HealthShigatoxin Gene PCRNegativeNEGATIVE: No Shiga toxin-producing gene(s) DetectedKettering Health SpringfieldShigella Sp PCRNegative NEGATIVE: No Shigella spp. / EIEC DNA DetectedKettering Health SpringfieldSpecimen Description .FECESMerSkagit Regional HealthVibrio PCRNEGATIVE: No Vibrio (V. vulnificus, V, parahaemolyticus and V. cholerae) DNA DetectedNEGATIVE: No Vibrio (V. vulnificus, V, parahaemolyticus andUniversity Hospitals Beachwood Medical Centerersinia Enterocolitica PCR NegativeNEGATIVE: No Yersinia enterocolitica DNA DetectedFairfield Medical Center HealthHaptoglobinon 49-82-6943Xlgjakmlkbi961 mg/gKKswn93-353WwqiyKindred Hospital LimaComment on above:Performed By: #### PTT, FIB, PT, LYTE, DBILI, TBIL, RETCT, CBC, LD, HAPT, PATH ####[facility] [address] [place] [address] [facility] Director: Brandan Ugalde MDHaptoglobin346 mg/qDCbup22 - 200 mg/dLKettering Health SpringfieldInterpretation and review of laboratory resultsAbnoAurora Health CenterPO Glucose Fingerstickon 81-30-6169Fdgkynj [Mass/Vol] 200 mg/eIXkfq23 - 105 mg/dLKettering Health SpringfieldInterpretation and review of laboratory resultsAbnoAscension Northeast Wisconsin Mercy Medical CenterGlucose [Mass/Vol]131 mg/xVZjcx77 - 105 mg/dLKettering Health SpringfieldInterpretation and review of laboratory resultsAbnoLicking Memorial Hospital HealthGlucose [Mass/Vol]122 mg/fSXcst75 - 105 mg/dLKettering Health Springfield Interpretation and review of laboratory resultsAbnoAscension [facility] Glucose [Mass/Vol]119 mg/lIFlrq05 - 105 mg/dLCleveland Clinic HealthInterpretation and review of laboratory resultsAbnoAscension Northeast Wisconsin Mercy Medical CenterGlucose [Mass/Vol] 135 mg/bCJazf22 - 105 mg/dLKettering Health SpringfieldInterpretation and review of laboratory resultsAbnormSpooner HealthPhosphoruson 20-02-8990Hkpgurron [Mass/Vol]3.0 mg/dL2.6 - 4.5 mg/dLMercy HealthMercy HealthPhosphorus, Inorg.on 99-50-0790Vbpeshobfs, Inorg.3.0 mg/dLNormal2.6-4.5Mer[facility], HillcrestComment on above:Performed By: #### GERMANIA, PRATIBHA #### [facility] [address] [place] [address] Corporate Physical Security Supervisor: Brandan Ugalde, MDRENAL FUNCTION PANELon 63-89-4407Tnosprg [Mass/Vol]2.5 g/dLLow3.5 - 5.2 g/dLMercy HealthAnion gap [Moles/Vol]9 mmol/L9 - 17 mmol/LMercy HealthCalcium [Mass/Vol]8.7 mg/dL8.6 - 10.4 mg/dLMercy Health Chloride [Moles/Vol]109 mmol/LHigh98 - 107 mmol/LMercy HealthCO2 [Moles/Vol]23 mmol/L20 - 31 mmol/LMercy HealthCreatinine [Mass/Vol]1.46 mg/dLHigh0.50 - 0.90 mg/dLMercy HealthGFR Pcaacity92 mL/minLow>60Mercy HealthGFR Non- Ksbjwoji69 mL/minLow>60Mercy HealthGFR/1.73 sq M.predicted MDRD (S/P/Bld) [Vol rate/Area][facility] Health SpringfieldComment on above:Average GFR for 40-49 years old: 99 mL/min/1.73sq m Chronic Kidney Disease: <60 mL/min/1.73sq m Kidney failure: <15 mL/min/1.73sq m eGFR calculated using average adult body mass. Additional eGFR calculator available at: http://www.[employer]/multiple_crcl_2012.htm GFR/1.73 sq M.predicted MDRD (S/P/Bld) [Vol rate/Area]NOT REPORTEDMerSkagit Regional Health Glucose [Mass/Vol]109 mg/cLVdzf23 - 99 mg/dLMer HealthInterpretation and review of laboratory resultsAbnormalMer HealthPhosphate [Mass/Vol]3.2 mg/dL2.6 - 4.5 mg/dLMercy HealthPotassium [Moles/Vol]3.6 mmol/LLow3.7 - 5.3 mmol/LMercy HealthSodium [Moles/Vol]141 mmol/L135 - 144 mmol/LMercy HealthUrea nitrogen (BldV) [Mass/Vol]22 mg/dLHigh6 - 20 mg/dLCleveland Clinic HealthUrea nitrogen/Creatinine (Bld) [Mass ratio]NOT REPORTEDAscension Northeast Wisconsin Mercy Medical CenterRenal Function Panelon 10-02-2021(cont.)NormalKindred Hospital LimaComment on above:Result Comment: Average GFR for 40-49 years old: 99 mL/min/1.73sq m Chronic Kidney Disease: <60 mL/min/1.73sq m Kidney failure: <15 mL/min/1.73sq m eGFR calculated using average adult body mass. Additional eGFR calculator available at: http://www.[employer]/multiple_crcl_2012.htmPerformed By: #### PRATIBHA SOLO #### [facility] [address] [place] [address] [phone] [employer] Supervisor: Brandan Ugalde MDAlbumin [Mass/Vol]2.5 g/dLLow3.5-5.2MSan Luis Obispo General HospitalComment on above:Performed By: #### PRATIBHA SOLO #### [facility] [address] [place] [address] 80317 [employer] Supervisor: Brandan Ugalde MDAnion gap [Moles/Vol]9 mmol/LNormal9-17[facility] Hospital LimaComment on above:Performed By: #### FRANK SOLOO #### [facility] [place] [address] [employer] Security Supervisor: DANIELLE Wootenalcium [Mass/Vol]8.7 mg/dLNormal8.6-10.4[facility] Hospital LimaComment on above:Performed By: #### FRANK SOLOO #### [employer] [address] [place] [address] [phone] [employer] Supervisor: DANIELLE Wootenhloride [Moles/Vol]109 mmol/LMoxk18-045UxbfqKindred Hospital LimaComment on above:Performed By: #### PRATIBHA SOLO #### [facility] [address] [place] [address] 68874 [employer] Supervisor: Brandan Ugalde MDCO2 [Moles/Vol]23 mmol/TGowbqo81-94WatlrKindred Hospital LimaComment on above:Performed By: #### PRATIBHA SOLO #### [facility] [address] [place] [address] [employer] Physical [employer] Supervisor: DANIELLE Wootenreatinine [Mass/Vol]1.46 mg/dLHigh0.50-0.90 [facility] LimaComment on above:Performed By: #### PRATIBHA SOLO #### [address] [address] [employer] Physical Security Supervisor: Brandan Ugalde MDGFR, Amer48 mL/minLow>60[facility] Hospital LimaComment on above:Performed By: #### PRATIBHA SOLO #### [address] [address] [employer] Security Supervisor: Brandan Ugalde MDGFR,non Amer39 mL/minLow>60[facility] Hospital LimaComment on above:Performed By: #### PRATIBHA SOLO #### [address] [address] [employer] Physical Security Supervisor: Brandan Ugalde MDGlucose [Mass/Vol]109 mg/dPRbax70-71PrvzbSan Luis Obispo General HospitalComment on above:Performed By: #### FRANK SOLOO #### [facility] [address] [place] [address] [employer] Supervisor: DANIEL Wootenhosphorus, Inorg.3.2 mg/dLNormal2.6-4.5[facility] Hospital LimaComment on above:Performed By: #### GERMANIA UMICAO #### [facility] [address] [place] [address] [employer] Physical Security Supervisor: DANIEL Wootenotassium [Moles/Vol]3.6 mmol/LLow3.7-5.3[facility], HillcrestComment on above:Performed By: #### GERMANIA UMICAO #### [facility] [address] [place] [address] [employer] Physical Security Supervisor: JACOB Wootenodium [Moles/Vol]141 mmol/WTsdovm620-532YslzlKindred Hospital LimaComment on above:Performed By: #### GERMANIA UMICAO #### [facility] [address] [place] [address] [employer] Security Supervisor: Brandan Ugalde MDUrea nitrogen [Mass/Vol]22 mg/dLHigh6-20[facility] Hospital LimaComment on above:Performed By: #### GERMANIA UMICAO #### [facility] [address] [place] [address] [employer] Physical Security Supervisor: CHAVO Wooten/ABI Ramey REPORTEDNocape fear/harnett health920Kindred Hospital LimaComment on above:Performed By: #### GERMANIA UMICAO #### [facility] [address] [place] [address] [employer] Supervisor: JACOB Wootentaging:NOT REPORTEDNormalKindred Hospital LimaComment on above:Performed By: #### GERMANIA UMICAO #### [facility] [address] [place] [address] [employer] Security Supervisor: Fawad Wooten PCR Batteryon 46-38-7589Yxfxsrtmyzuhf sp PCRNEGATIVE: No Campylobacter spp. (jejuni or coli) DNA DetectedNormalCAshtabula County Medical CenterComment on above:Performed By: #### GERMANIA UMICAO #### [facility] [address] [place] [address] [employer] Physical Security Supervisor: GODFREY Wooten coli enterotox PCRNEGATIVE: No Enterotoxigenic E. coli (ETEC) Heat-labile and heat-stable (LT/ST)NormalEECNEGKindred Hospital LimaComment on above:Result Comment: DNA DetectedPerformed By: #### GERMANIA UMJOSEO #### [address] [address] [employer] Physical Security Supervisor: Gil Wootenmonas sp PCRNegativeNocape fear/harnett healthPLENEGKindred Hospital LimaComment on above:Performed By: #### FRANK SOLOO #### [address] [address] [employer] Physical Security Supervisor: JACOB Wootenalmonella sp PCRNegativeNoRegency Hospital ToledoComment on above:Performed By: #### GERMANIA UMICAO #### [address] [address] [employer] Physical Security Supervisor: JACOB Wootenhigatoxin gene PCRNegativeNoECU Health Beaufort HospitalTXNEGKindred Hospital LimaComment on above:Performed By: #### GERMANIA UMICAO #### [facility] [address] [address] [employer] Physical Security Supervisor: Evelio Wootengella sp PCRNegativeNoECU Health Beaufort HospitalHINEGKindred Hospital LimaComment on above:Performed By: #### GERMANIA UMICAO #### [facility] [address] [place] [address] [employer] Physical Security Supervisor: Scott Wootenbrrush sp PCRNEGATIVE: No Vibrio (V. vulnificus, V, parahaemolyticus and V. cholerae) DNANormalVIBNEGKindred Hospital LimaComment on above:Result Comment: DetectedPerformed By: #### GERMANIA UMICAO #### [facility] [address] [place] [address] [employer] Physical Security Supervisor: Krista Wooten gene PCRNegativeNormalYERNEGKindred Hospital LimaComment on above:Performed By: #### UAPRATIBHA #### [facility] [address] [place] [address] [phone] [employer] Security Supervisor: Abdi Wooten 29-89-2611yKUX Coag (Bld) [Time]22.1 s Ceptaw39.5-30.5[facility] Hospital LimaComment on above:Result Comment: IV Heparin Therapy Range: 48.6-77.8Performed By: #### LACWB #### [place] [address] [employer] Physical Security Supervisor: Jose D Wooten Coag (Bld) [Time]22.1 sMTriHealth Bethesda North HospitalComment on above: IV Heparin Therapy Range: 48.6-77.8 [facility] SpringfieldBETA-HYDROXYBUTERATEon 43-88-2761Svvf-Hydroxybutyrate0.2 mmol/L0.02 - 0.27 mmol/LMAdventHealth DurandBeta Hydroxybutyrateon 29-06-7304Iovy Hydroxybutyrate0.20 mmol/LNormal0.02-0.27[facility] Hospital LimaComment on above:Performed By: #### VBG #### [address] [phone] [employer] Security Supervisor: Salena Wootenirubin, Directon 55-99-7148Mxxazfvht.indirect [Mass/Vol]0.08 mg/dLNormal<0.31[facility] Hospital LimaComment on above:Performed By: #### PTT, FIB, PT, LYTE, DBILI, TBIL, RETCT, CBC, LD, HAPT, PATH ####[facility] [address] [place] [address] [phone] Lab Director: Raul Wooten.indirect [Mass/Vol]0.08 mg/dL<0.31[facility] SpringfieldBilirubin, Totalon 33-91-8613Qfmbmyift [Mass/Vol]0.17 mg/dLLow0.3-1.2MSan Luis Obispo General HospitalComment on above:Performed By: #### PTT, FIB, PT, LYTE, DBILI, TBIL, RETCT, CBC, LD, HAPT, PATH ####[facility] [address] [place] [address] [phone] Lab Director: Brandan Ugalde MDBilirubin [Mass/Vol]0.17 mg/dLLow0.3 - 1.2 mg/dLAvita Health System Ontario Hospital diff Ag + Toxinon 10-01-2021 Specimen Description.FECESNormalKindred Hospital LimaComment on above:Performed By: #### FRANK SOLOO #### [place] [address] [employer] Supervisor: DANIELLE WootenBCon 48-35-2412Qwcphzyscel distribution width (RBC) [Ratio]13.8 %Yjazgc89.8-14.4[facility] Hospital LimaComment on above:Performed By: #### PTT, FIB, PT, LYTE, DBILI, TBIL, RETCT, CBC, LD, HAPT, PATH ####[place] [address] lab Director: Brandan Ugalde MDHematocrit (Bld) [Volume fraction]32.2 %Low36.3-47.1 [facility] Hospital LimaComment on above:Performed By: #### PTT, FIB, PT, LYTE, DBILI, TBIL, RETCT, CBC, LD, HAPT, PATH ####[address] [address] Lab Director: Brandan Ugalde MD Hemoglobin (Bld) [Mass/Vol]10.9 g/dLLow11.9-15.1MSan Luis Obispo General Hospital Comment on above:Performed By: #### PTT, FIB, PT, LYTE, DBILI, TBIL, RETCT, CBC, LD, HAPT, PATH ####[facility] [address] [place] [phone] Director: RUPAL Wooten (RBC) [Entitic mass]29.1 pgNormal 25.2-33.5[facility] Hospital LimaComment on above:Performed By: #### PTT, FIB, PT, LYTE, DBILI, TBIL, RETCT, CBC, LD, HAPT, PATH ####[facility] [address] [place] [address] Lab Director: RUPAL WootenC (RBC) [Mass/Vol]33.9 g/eAWjtydj67.4-34.8[facility] Hospital LimaComment on above:Performed By: #### PTT, FIB, PT, LYTE, DBILI, TBIL, RETCT, CBC, LD, HAPT, PATH ####[place], [place] [address])[phone] Director: BERTA Wooten (RBC) [Entitic vol]85.9 fL Yaxnsa43.6-102.9[facility] Hospital LimaComment on above:Performed By: #### PTT, FIB, PT, LYTE, DBILI, TBIL, RETCT, CBC, LD, HAPT, PATH ####[place] [address] Lab Director: Brandan Ugalde MDNRBC Automated0.0 per 100 WBCNormal0.0[facility] Comment on above:Performed By: #### PTT, FIB, PT, LYTE, DBILI, TBIL, RETCT, CBC, LD, HAPT, PATH ####[facility] [address] [place] [phone] Director: Mera Wootenlet mean volume (Bld) [Entitic vol]10.4 fLNormal8.1-13.5[facility] Hospital LimaComment on above:Performed By: #### PTT, FIB, PT, LYTE, DBILI, TBIL, RETCT, CBC, LD, HAPT, PATH ####[facility] [address] [place], [place] [phone] Lab Director: Robert Wooten (d) [#/Vol]141 10*3/kQDeyvwz201-906FhykoKindred Hospital LimaComment on above:Performed By: #### PTT, FIB, PT, LYTE, DBILI, TBIL, RETCT, CBC, LD, HAPT, PATH ####[facility] [address] [place] [address] [phone] Lab Director: BAKARI Wooten ([facility]) [#/Vol]3.75 10*6/uL Low3.95-5.11[facility] Hospital LimaComment on above:Performed By: #### PTT, FIB, PT, LYTE, DBILI, TBIL, RETCT, CBC, LD, HAPT, PATH ####[facility] [address] [place] [address] Lab Director: MISTY Wooten ([facility]) [#/Vol]4.8 10*3/uLNormal3.5-11.3MSan Luis Obispo General HospitalComment on above:Performed By: #### PTT, FIB, PT, LYTE, DBILI, TBIL, RETCT, CBC, LD, HAPT, PATH ####[facility] [address] [place] [address] Lab Director: Brandan Ugalde MDHematocrit (d) [Volume fraction]32.2 %Low36.3 - 47.1 %[facility] SpringfieldHemoglobin.gastrointestinal spec 1 Ql (Stl)10.9 g/dLLow11.9 - 15.1 g/dLKettering Health SpringfieldInterpretation and review of laboratory resultsAbnormalMercy Health – The Jewish Hospital (RBC) [Entitic mass]29.1 pg25.2 - 33.5 pgGerman HospitalHC (RBC) [Mass/Vol]33.9 g/dL28.4 - 34.8 g/dLGerman HospitalV (RBC) [Entitic vol]85.9 fL82.6 - 102.9 fLKettering Health SpringfieldNRBC Automated0.00.0 per 100 WBCKettering Health SpringfieldPlatelet distribution width (Bld) [Ratio]13.8 %11.8 - 14.4 % [facility] SpringfieldPlatelet mean volume (Bld) [Entitic vol]10.4 fL8.1 - 13.5 fLKettering Health SpringfieldPlatelets (Bld) [#/Vol]141 10*3/[facility]. Ruby Memorial HospitalRBC (Bld) [#/Vol]3.75 10*6/Low3.95 - 5.11 m/J.[facility]. Ruby Memorial HospitalWBC (Bld) [#/Vol]4.8 10*3/[facility] CBC auto differentialon 95-89-9423Sxamydjc Eos #0.05[facility] SpringfieldAbsolute Immature Granulocyte0.04[facility] SpringfieldAbsolute Lymph #1.46[facility] SpringfieldAbsolute Casey #0.46[facility] SpringfieldBasophils (Bld) [#/Vol]10*3/[facility] HospitalBasophils/100 WBC (Bld)1 %0 - 2 %[facility] SpringfieldDifferential TypeNOT REPORTEDKettering Health Springfield Eosinophils/100 WBC (Bld)1 %1 - 4 %[facility] SpringfieldHematocrit (Bld) [Volume fraction]28.5 %Low36.3 - 47.1 %[facility] SpringfieldHemoglobin.gastrointestinal spec 1 Ql (Stl)10.0 g/dLLow11.9 - 15.1 g/dLKettering Health SpringfieldImmature granulocytes/100 WBC (Bld) 1 %Tgdw8FyumkKettering Health SpringfieldInterpretation and review of laboratory resultsAbnormalKettering Health SpringfieldLymphocytes/100 WBC (Bld)37 %24 - 43 %German HospitalH (RBC) [Entitic mass] 29.6 pg25.2 - 33.5 pgGerman HospitalHC (RBC) [Mass/Vol]35.1 g/hTGkkp97.4 - 34.8 g/dLGerman HospitalV (RBC) [Entitic vol]84.3 fL82.6 - 102.9 [facility] Monocytes/100 WBC (Bld)12 %3 - 12 %[facility] SpringfieldNRBC Automated0.00.0 per 100 WBC [facility] HealthPlatelet distribution width (Bld) [Ratio]13.9 %11.8 - 14.4 %[facility] HealthPlatelet EstimateNOT REPORTEDCleveland Clinic HealthPlatelet mean volume (Bld) [Entitic vol]NOT REPORTED8.1 - 13.5 fLCleveland Clinic HealthPlatelets (Bld) [#/Vol]See Reflexed IPF ResultMer HealthRBC (Bld) [#/Vol]3.38 10*6/uLLow3.95 - 5.11 m/uL [facility] HealthRBC (Bld) [#/Vol]NOT REPORTEDKettering Health SpringfieldSegmented neutrophils/100 WBC (Bld)48 %36 - 65 %[facility] SpringfieldSegs Absolute1.91[facility] HealthWBC (Bld) [#/Vol] 3.9 10*3/uLKettering Health SpringfieldWBC (Bld) [#/Vol]NOT REPORTEDAscension Northeast Wisconsin Mercy Medical CenterCBC with Diffon 53-51-1275Zmb. Basophil<0.07Smkwhi2.00-0.20[facility] Hospital LimaComment on above:Performed By: #### EMMA #### [facility] [address] [place] [address] [employer] Supervisor: MDAbs. SugarImm.Granulocyte0.04 k/uLNormal0.00-0.30[facility] Hospital LimaComment on above:Performed By: #### KATHYWB #### [facility] [address] [place] [address] [employer] Security Supervisor: MDAbs. SugarNeutrophil (Seg)1.91 k/uLNormal1.50-8.10 [facility] LimaComment on above:Performed By: #### LACWB #### [facility] [address] [place] [address] [employer] Supervisor: Brandan Ugalde MDBasophils/100 WBC (Bld)1 %Normal0-2MSan Luis Obispo General HospitalComment on above:Performed By: #### KATHYWB #### [address] [address] [employer] Physical Security Supervisor: Brandan Ugalde MDEosinophils (Bld) [#/Vol]0.05 10*3/uLNormal 0.00-0.44[facility] Hospital LimaComment on above:Performed By: #### LACWB #### [address] [address] [employer] Security Supervisor: Brandan Ugalde MDEosinophils/100 WBC (Bld)1 %Normal1-4[facility] Hospital LimaComment on above:Performed By: #### LACWB #### [address] [address] [employer] Security Supervisor: Brandan Ugalde MDErythrocyte distribution width (RBC) [Ratio]13.9 %Mqlrhd66.8-14.4[facility] Hospital LimaComment on above:Performed By: #### LACWB #### [address] [address] [employer] Security Supervisor: Brandan Ugalde MDHematocrit (Bld) [Volume fraction]28.5 %Low 36.3-47.1MSan Luis Obispo General HospitalComment on above:Performed By: #### LACWB #### [address] [address] [employer] Physical Security Supervisor: Brandan Ugalde MDHemoglobin (Bld) [Mass/Vol]10.0 g/dLLow11.9-15.1 [facility] LimaComment on above:Performed By: #### LACWB #### [address] [address] [employer] Physical Security Supervisor: Brandan Ugalde MDImmature granulocytes/100 WBC (Bld)1 %Iuuu9CrhpiKindred Hospital LimaComment on above:Performed By: #### LACWB #### [address] [place] [address] [employer] Physical Security Supervisor: Brandan Ugalde MDLymphocytes (Bld) [#/Vol]1.46 10*3/uLNormal 1.10-3.70[facility] Hospital LimaComment on above:Performed By: #### LACWB #### [address] [address] [employer] Physical Security Supervisor: Sven Wootenhocytes/100 WBC (Bld)37 %Ocwxct00-10QbpkcKindred Hospital LimaComment on above:Performed By: #### LACWB #### [place] [address] [employer] Physical Security Supervisor: GAVIN WootenCH (RBC) [Entitic mass]29.6 ieDpaziy29.2-33.5 [facility] LimaComment on above:Performed By: #### LACWB #### [place] [address] [employer] Physical Security Supervisor: GAVIN WootenCHC (RBC) [Mass/Vol]35.1 g/oFKasj99.4-34.8[facility] Hospital LimaComment on above:Performed By: #### LACWB #### [place] [address] [employer] Physical Security Supervisor: GAVIN WootenCV (RBC) [Entitic vol]84.3 pNFmoeky80.6-102.9 [facility] LimaComment on above:Performed By: #### LACWB #### [address] [address] [employer] Physical Security Supervisor: GAVIN Wootenonocytes (Bld) [#/Vol]0.46 10*3/uLNormal 0.10-1.20[facility] Hospital LimaComment on above:Performed By: #### LACWB #### [address] [address] [employer] Security Supervisor: GAVIN Wootenonocytes/100 WBC (Bld)12 %Normal3-12[facility] Hospital LimaComment on above:Performed By: #### LACWB #### [address] [address] [employer] Physical Security Supervisor: Brandan Ugalde MDNeutrophil (Seg)48 %Dzjsbd04-53AcnsyKindred Hospital LimaComment on above:Performed By: #### LACWB #### [address] [address] [employer] Physical Security Supervisor: Brandan Ugalde MDNRJONNIE Automated0.0 per 100 WBCNormal0.0[facility] Hospital LimaComment on above:Performed By: #### LACWB #### [address] [address] [employer] Security Supervisor: Sadaf Wootentelet CountSee Reflexed IPF ResultNormal 138-453Kindred Hospital LimaComment on above:Performed By: #### LACWB #### [address] [address] [employer] Physical Security Supervisor: DENG WootenBC (Bld) [#/Vol]3.38 10*6/uLLow3.95-5.11[facility] Hospital LimaComment on above:Performed By: #### LACWB #### [address] [address] [employer] Physical Security Supervisor: Brandan Ugalde MDWBC (Bld) [#/Vol]3.9 10*3/uLNormal3.5-11.3MSan Luis Obispo General HospitalComment on above:Performed By: #### LACWB #### [address] [address] Corporate Physical Security Supervisor: Brandan Madoff, MDAuto Diff PerformedNOT REPORTEDNormalKindred Hospital LimaComment on above:Performed By: #### LACWB #### [employer] [address] [place] [address] [employer] Physical Security Supervisor: Brandan Ugalde MDMPVNOT REPORTEDNormal8.1-13.5[facility] Hospital LimaComment on above:Performed By: #### LACWB #### [employer] [facility] [address] [place] [address] [employer] Physical Security Supervisor: DANIEL Wootenlatelet CommentNOT REPORTEDNormalKindred Hospital LimaComment on above:Performed By: #### LACWB #### [employer] [address] [place] [address] [employer] Physical Security Supervisor: BAKARI Wooten morphology finding Nom (Bld)NOT REPORTED NormalKindred Hospital LimaComment on above:Performed By: #### LACWB #### [facility] HospitalSoccerFreakz [address] [place] [address] [employer] Physical Security Supervisor: MISTY Wooten MorphologyNOT REPORTEDSelect Medical [facility] Rehabilitation Hospital, Edwin ShawComment on above:Performed By: #### LACWB #### [employer] [address] [place] [address] [employer] Physical Security Supervisor: DANIELLE WootenHLJUAN, URINE, RANDOMon 05-74-1503Mfpqictv, Ur 33 mmol/LMercy Memorial HospitalComment on above:No normal range established.CT ABDOMEN PELVIS WO CONTRASTon 69-08-2974HW ABDOMEN PELVIS WO CONTRASTEXAMINATION: CT OF THE [...] by: Beulah Felix DO 10/01/21 Final resultNormalMercy Uc [facility] Center, HillcrestCT ABDOMEN PELVIS WO CONTRAST Additional Contrast? Oralon . No acute process in the abdomen or pelvis. 2. Trace bilateral pleural fluid and mild bibasilar atelectasis. RECOMMENDATIONS: Unavailable RUST RIS CONSOLIDATEDEXAMINATION: CT OF THE ABDOMEN AND [...] hernia. No acute or suspicious osseous abnormality. RUST RIS Beulah Santana, DO - 10/01/2021 EXAMINATION: [...] fluid and mild bibasilar atelectasis. RECOMMENDATIONS: Unavailable [employer] Phone: radiology Study observation (narrative)[employer] Phone: cT ABDOMEN PELVIS WO CONTRAST Additional Contrast? OralOrdered By: Beulah Fleix on 81-68-6342[facility] Work Phone: Chloride,Random Uron 32-98-9903Kndolkbn [Moles/Vol]33 mmol/LNormalKindred Hospital LimaComment on above:Result Comment: No normal range established.Performed By: #### UAPRATIBHA #### [employer] [address] [place] [address] [employer] Physical Security Supervisor: DANIELLE Wootensteward health care system Metabolic Pr/rfx MGon 63-68-3392EHM [Catalytic activity/Vol]12 U/LNormal<32[facility] Hospital LimaComment on above:Performed By: #### LACWB #### [employer] [address] [place] [address] [employer] Physical Security Supervisor: Brandan Ugalde MDBilirubin [Mass/Vol]mg/dLLow0.3-1.2MSan Luis Obispo General HospitalComment on above:Performed By: #### LACWB #### [employer] [address] [place] [address] [employer] Physical Security Supervisor: Brandan Ugalde MD(cont.)[facility] Comment on above:Result Comment: Average GFR for 40-49 years old: 99 mL/min/1.73sq m Chronic Kidney Disease: <60 mL/min/1.73sq m Kidney failure: <15 mL/min/1.73sq m eGFR calculated using average adult body mass. Additional eGFR calculator available at: http://www.[employer].com/multiple_crcl_2012.htmPerformed By: #### LACWB #### [employer] [address] [place] [address] [employer] Physical Security Supervisor: Brandan Ugalde MDAlbumin [Mass/Vol]1.9 g/dLLow3.5-5.2MSan Luis Obispo General HospitalComment on above:Performed By: #### LACWB #### [address] [address] [employer] Physical Security Supervisor: Brandan Ugalde MDAlbumin/Glob Ratio0.7Low1.0-2.5[facility] Hospital LimaComment on above:Performed By: #### LACWB #### [address] [address] [employer] Physical Security Supervisor: Brandan Ugalde MDAlkaline Phos69 U/ZHluzca25-050VvlznKindred Hospital LimaComment on above:Performed By: #### LACWB #### [address] [address] [employer] Physical Security Supervisor: Brandan Ugalde MDALT [Catalytic activity/Vol]11 U/LNormal5-33 [facility] LimaComment on above:Performed By: #### LACWB #### [address] [address] [employer] Physical Security Supervisor: Brandan Ugalde MDAnion gap [Moles/Vol]10 mmol/LNormal9-17[facility] Hospital LimaComment on above:Performed By: #### LACWB #### [address] [address] [employer] Physical Security Supervisor: Brandan Ugalde MDCalcium [Mass/Vol]8.2 mg/dLLow8.6-10.4[facility] Hospital LimaComment on above:Performed By: #### LACWB #### [address] [address] [employer] Physical Security Supervisor: Brandan Ugalde MDChloride [Moles/Vol]115 mmol/AZdzf44-429WtegtKindred Hospital LimaComment on above:Performed By: #### LACWB #### [address] [address] [employer] Physical Security Supervisor: Brandan Ugalde MDCO2 [Moles/Vol]13 mmol/RCyo76-49XxeyqKindred Hospital LimaComment on above:Performed By: #### LACWB #### [address] [address] [employer] Security Supervisor: DANIELLE Wootenreatinine [Mass/Vol]1.77 mg/dLHigh0.50-0.90 [facility] LimaComment on above:Performed By: #### LACWB #### [address] [address] [employer] Security Supervisor: Brandan Ugalde MDGFR, Amer38 mL/minLow>60[facility] Hospital LimaComment on above:Performed By: #### LACWB #### [address] [address] [employer] Security Supervisor: BRAIN Wooten,non Amer31 mL/minLow>60[facility] Hospital LimaComment on above:Performed By: #### LACWB #### [address] [address] [employer] Physical Security Supervisor: Brandan Ugalde MDGlucose [Mass/Vol]184 mg/pRLcke64-21JwcqsSan Luis Obispo General HospitalComment on above:Performed By: #### LACWB #### [place] [address] [employer] Security Supervisor: Brandan Ugalde MDPotassium [Moles/Vol]3.5 mmol/LLow3.7-5.3MSan Luis Obispo General HospitalComment on above:Performed By: #### LACWB #### [address] [address] [employer] Security Supervisor: Brandan Ugalde MDProtein [Mass/Vol]4.6 g/dLLow6.4-8.3Mbrown memorial hospitaly [facility], HillcrestComment on above:Performed By: #### LACWB #### [address] [address] [employer] Security Supervisor: JACOB Wootenodium [Moles/Vol]138 mmol/MSibblb197-572EusumKindred Hospital LimaComment on above:Performed By: #### LACWB #### [facility] [address] [place] [address] [employer] Security Supervisor: Brandan Ugalde MDUrea nitrogen [Mass/Vol]31 mg/dLHigh6-20[facility] Hospital LimaComment on above:Performed By: #### LACWB #### [facility] [address] [place] [address] [employer] Physical Security Supervisor: CHAVO Wooten/CRE RatioNOT REPORTEDNormal9-20[facility] Hospital LimaComment on above:Performed By: #### LACWB #### [facility] [address] [place] [address] [employer] Security Supervisor: JACOB Wootentaging:NOT REPORTEDNormalKindred Hospital LimaComment on above:Performed By: #### LACWB #### [facility] [address] [place] [address] [employer] Security Supervisor: DANIELLE Wootenomprehensive Metabolic Panel w/ Reflex to MGon 32-84-3465Aelsixl [Mass/Vol]1.9 g/dLLow3.5 - 5.2 g/dLMercy Health Albumin/Globulin [...] 31 mmol/LMercy HealthCreatinine [Mass/Vol]1.77 mg/dLHigh0.50 - 0.90 mg/dLKettering Health SpringfieldFree PSA/Total PSA [Mass fraction]4.6 g/dLLow6.4 - 8.3 g/dLCleveland Clinic HealthGFR Lqawvvyg80 mL/minLow>60Mer HealthGFR Non- Rhhdgimk15 mL/minLow>60Mer HealthGFR/1.73 sq M.predicted MDRD (S/P/Bld) [Vol rate/Area][facility] SpringfieldComment on above:Average GFR for 40-49 years old: 99 mL/min/1.73sq m Chronic Kidney Disease: <60 mL/min/1.73sq m Kidney failure: <15 mL/min/1.73sq m eGFR calculated using average adult body mass. Additional eGFR calculator available at: http://www.[employer]/multiple_crcl_2012.htm GFR/1.73 sq M.predicted MDRD (S/P/Bld) [Vol rate/Area]NOT REPORTEDKettering Health Springfield Glucose [Mass/Vol]184 mg/rQHdiz98 - 99 mg/dLKettering Health SpringfieldInterpretation and review of laboratory resultsAbnormWatauga Medical Center HealthPotassium [Moles/Vol]3.5 mmol/L Low3.7 - 5.3 mmol/LMercy HealthSodium [Moles/Vol]138 mmol/L135 - 144 mmol/LMercy HealthUrea nitrogen (BldV) [Mass/Vol]31 mg/dLHigh6 - 20 mg/dLKettering Health SpringfieldUrea nitrogen/Creatinine (Bld) [Mass ratio]NOT REPORTEDAscension Northeast Wisconsin Mercy [facility] Electrolyte Panelon 60-03-1531Crvnk gap [Moles/Vol]8 mmol/LLow9 - 17 mmol/LMercy HealthChloride [...] [Moles/Vol]137 mmol/L135 - 144 mmol/LMercy HealthElectrolytes on 93-90-1722Ljenb gap [Moles/Vol]8 mmol/LLow9-17Kindred Hospital LimaComment on above:Performed By: #### PRATIBHA SOLO #### [facility] [address] [place] [address] [phone] [employer] Supervisor: Brandan Ugalde MDChloride [Moles/Vol]108 mmol/OCyum25-303OmuobKindred Hospital LimaComment on above:Performed By: ###PRATIBHA FARIAS #### [facility] [address] [place] [address] [phone] [employer] Supervisor: Brandan Ugalde MDCO2 [Moles/Vol]19 mmol/QSaf65-97UoshmKindred Hospital LimaComment on above:Performed By: ###PRATIBHA FARIAS #### [facility] [address] [place] [address] [employer] Supervisor: Brandan Ugalde MDPotassium [Moles/Vol]3.4 mmol/LLow3.7-5.3MSan Luis Obispo General HospitalComment on above:Performed By: #### PRATIBHA SOLO #### [facility] [address] [place] [address] [phone] [employer] Supervisor: Brandan Ugalde MDSodium [Moles/Vol]135 mmol/XNaoweo625-940HgyfkKindred Hospital LimaComment on above:Performed By: #### PRATIBHA SOLO #### [facility] [address] [place] [address] 29064 [employer] Supervisor: Brandan Ugalde MDAnion gap [Moles/Vol]9 mmol/LNormal9-17[facility] Hospital LimaComment on above:Performed By: #### LACWB #### [facility] [address] [place] [address] 46436 [employer] Supervisor: Brandan Ugalde MDChloride [Moles/Vol]112 mmol/WFobu30-748CpsxyKindred Hospital LimaComment on above:Performed By: #### LACWB #### [address] [address] [employer] Supervisor: Brandan Ugalde MDCO2 [Moles/Vol]16 mmol/ZTql50-50YoyfmKindred Hospital LimaComment on above:Performed By: #### LACWB #### [address] [address] [employer] Supervisor: Brandan Ugalde MDPotassium [Moles/Vol]3.2 mmol/LLow3.7-5.3MSan Luis Obispo General HospitalComment on above:Performed By: #### LACWB #### [facility] [address] [place] [address] 11227 [employer] Supervisor: Brandan Ugalde MDSodium [Moles/Vol]137 mmol/UQpflwc238-786LiqsfKindred Hospital LimaComment on above:Performed By: #### LACWB #### [facility] [address] [place] [address] 21874 [employer] Supervisor: Brandan Ugalde MDFibrinogenon 90-81-0412Justyuhvwu831 mg/dLNormal 140-420Kindred Hospital LimaComment on above:Performed By: #### LACWB #### [facility] [place] [address] [employer] Supervisor: Brandan Ugalde MDFibrinogen389 mg/dL140 - 420 mg/dLKettering Health Springfield Immature Platelet Fractionon 50-59-7092Mifxnrwk, FluorescencePlatelet clumps present, count appears decreased.[facility] Medical CenterLactate Dehydrogenaseon 86-39-4937BDU [Catalytic activity/Vol]233 U/MDfti018-479PbnqfKindred Hospital LimaComment on above:Performed By: #### PTT, FIB, PT, LYTE, DBILI, TBIL, RETCT, CBC, LD, HAPT, PATH ####[address] [place] [address] Lab Director: Brandan Ugalde MDInterpretation and review of laboratory resultsAbnoCrystal Clinic Orthopedic CenterLD233 U/GXaoq340 - 214 U/LMercSelect Medical Specialty Hospital - CantonMagnesiumon 80-78-8894Maupbzgjs [Mass/Vol]2.0 mg/dLNormal1.6-2.6 [facility] Hospital LimaComment on above:Performed By: #### LACWB #### [address] [address] [employer] Supervisor: Brandan Ugalde MDMagnesium [Mass/Vol]2.0 mg/dL1.6 - 2.6 mg/dL [facility] CenterNo Panel Informationon 04-54-6702EzyvlAscension Northeast Wisconsin Mercy Medical CenterInterpretation and review of laboratory resultsAbEdgerton Hospital and Health Services HealthPLT, Immature Fract.on 48-39-8856Wpmywtyv, Fluoresc.Platelet clumps present, count appears decreased.Bjxafe185-333KopjjKindred Hospital LimaComment on above:Performed By: #### LACWB #### [address] [address] [employer] Supervisor: Brandan Ugalde MDPLT, Immature Fract.NOT REPORTEDNormal1.1-10.3 [facility] Hospital LimaComment on above:Performed By: #### KATHYWB #### [employer] [address] [place], [place] [phone] [employer] Physical Security Supervisor: YARI Wooten Glucose Fingerstickon 84-02-9737Sbtuxdq [Mass/Vol]177 mg/tZGldr02 - 105 mg/dLCleveland Clinic HealthInterpretation and review of laboratory resultsAbnormalAscension Northeast Wisconsin Mercy Medical CenterGlucose [Mass/Vol]188 mg/dL High65 - 105 mg/dLCleveland Clinic HealthInterpretation and review of laboratory results AbnormalMerFormerly [facility] HealthGlucose [Mass/Vol]225 mg/wJUjpg46 - 105 mg/dL [facility] SpringfieldInterpretation and review of laboratory resultsAbnormFroedtert Kenosha Medical CenterGlucose [Mass/Vol]197 mg/jTZrph35 - 105 mg/dLKettering Health Springfield Interpretation and review of laboratory resultsAbnormSpooner Health Glucose [Mass/Vol]137 mg/vJQpdh66 - 105 mg/dLKettering Health SpringfieldInterpretation and review of laboratory resultsAbnormLima Memorial Hospital HealthPOTASSIUM, URINE, RANDOMon 06-84-0904Lfauqdehz, Ur7 mmol/LMbrown memorial hospitaly HealthComment on above:No normal range established.PROTIME-INRon 19-14-7588WZV Coag (Bld) [Relative time]1.3 {INR}[facility]tering Health SpringfieldComment on above: Therapeutic Range: Moderate Anticoagulant Intensity: INR = 2.0-3.0 High Anticoagulant Intensity: INR = 2.5-3.5 Interpretation and review of laboratory resultsAbnoCrystal Clinic Orthopedic CenterPT Coag (PPP) [Time]13.8 sHigCrystal Clinic Orthopedic Centery [facility] 10-81-6329JOF Coag (PPP) [Relative time]1.1 {INR}[facility], Edwin ShawComment on above:Result Comment: Therapeutic Range: Moderate Anticoagulant Intensity: INR = 2.0-3.0 High Anticoagulant Intensity: INR = 2.5-3.5Performed By: #### LACWB #### [employer] [address] [place], [place] [phone] [employer] Supervisor: PAT Wooten Coag (PPP) [Time]11.4 sNormal9.1-12.3MSan Luis Obispo General HospitalComment on above:Performed By: #### LACWB #### [facility] HospitalSoccerFreakz [address] [place] [address] [employer] Supervisor: LINA Wooten Coag (PPP) [Relative time]1.3 {INR}Normal [facility] Hospital LimaComment on above:Result Comment: Therapeutic Range: Moderate Anticoagulant Intensity: INR = 2.0-3.0 High Anticoagulant Intensity: INR = 2.5-3.5Performed By: #### LACWB #### [address] [address] [employer] Supervisor: PAT Wooten Coag (PPP) [Time]13.8 sHigh9.1-12.3MSan Luis Obispo General HospitalComment on above:Performed By: #### LACWB #### [facility] HospitalSoccerFreakz [address] [place] [address] [employer] Supervisor: Amalia Wooten 36-43-6421Quwnssxpdegpov and review of laboratory resultsAbnormalCleveland Clinic HealthPhosphate [Mass/Vol]1.8 mg/dLLow2.6 - 4.5 mg/dLFairfield Medical Center HealthPhosphorus, Inorg.on 00-32-3510Mciuniopoo, Inorg.1.8 mg/dLLow2.6-4.5Kindred Hospital LimaComment on above: Performed By: #### LACWB #### [facility] Hospital[facility] [address] [place] [address] [employer] Supervisor: Everette Wooten Random Uron 88-09-8593Uzawzmcqq [Moles/Vol]7.0 mmol/LNormalKindred Hospital LimaComment on above: Result Comment: No normal range established.Performed By: #### PRATIBHA SOLO #### [facility] HospitalSoccer[facility] [address] [place] [address] [employer] Supervisor: DANIEL Wootenrotime-INRon 25-74-2867CCL Coag (Bld) [Relative time]1.1 {INR}[facility] Health SpringfieldComment on above: Therapeutic Range: Moderate Anticoagulant Intensity: INR = 2.0-3.0 High Anticoagulant Intensity: INR = 2.5-3.5 PT Coag (PPP) [Time]11.4 [facility] InstituteResp Viral Panelon 76-97-7309CnxfztmwdaHnb detectedNormalNOTDEKettering Health Greene MemorialComment on above:Performed By: #### RVP ####[address] [phone] Director: Maria T Wooten.parapertussisNot detectedNormalNOTDET [facility]red Hospital LimaComment on above:Performed By: #### RVP ####[address] [phone] Director: Jaci Wootentella pertussisNot detectedNormalNOTDEKettering Health Greene MemorialComment on above:Performed By: #### RVP ####[address] [phone] Director: MD Lilo Wooten.pneumoniaeNot detectedNormalNOTDEKettering Health Greene Memorial Comment on above:Performed By: #### RVP ####[facility] [address] [place] [address] [phone] Director: DANIELLE Wootenoronavirus 229E Not detectedNormalNOTDEKettering Health Greene MemorialComment on above: Performed By: #### RVP ####[facility] [address] [place] [address] [phone] Director: DANIELLE Wootenoronavirus FJF9Ata detected NormalNOTDEKettering Health Greene MemorialComment on above:Performed By: #### RVP ####[address] [phone] Director: DANIELLE Wootenoronavirus UZ37Twg detectedNormalNOTDEKettering Health Greene MemorialComment on above:Performed By: #### RVP ####[facility] [address] [place], [place] [phone] Director: DANIELLE Wootenoronavirus UO13Ztg detectedNormalNOTDEKettering Health Greene MemorialComment on above:Performed By: #### RVP ####[facility] [address] [place], [place] [phone] Director: Tommy Wooten Metapneumo Not detectedNormalNOTDEKettering Health Greene MemorialComment on above: Performed By: #### RVP ####[facility] Rx[address]qfppyavc64[address] [place], [place] [phone] Director: Maulik Wooten ANot detectedNormal NOTDEKettering Health Greene MemorialComment on above:Performed By: #### RVP ####[facility] [address] [place] [address] Lab Director: Maulik Wooten BNot detectedNormalNOTDEKettering Health Greene MemorialComment on above:Performed By: #### RVP ####[facility] [address] [place], [place] [phone] Director: Brandan Ugalde MD Mycoplas.pneumoniaeNot detectedNormalNOTDEKettering Health Greene Memorial Comment on above:Result Comment: Performed by multiplexed nucleic acid assay. Performed By: #### RVP ####[facility] L[address]jhyrkk[address]84 [place] [address] Lab Director: Gabriele Wooten 1Not detected NormalNOTDEKettering Health Greene MemorialComment on above:Performed By: #### RVP ####[facility] Dtxmoji[address]hv[address] [place], [place] [phone] Director: Gabriele Wooten 2Not detectedNormalNOTAdams County Regional Medical CenterComment on above:Performed By: #### RVP ####[address] [address] Lab Director: Gabriele Wooten 3Not detectedNormalNOTDEKettering Health Greene MemorialComment on above:Performed By: #### RVP ####[address] [address] Lab Director: Gabriele Wooten 4 Not detectedNormMagruder Memorial HospitalComment on above: Performed By: #### RVP ####[address] [address] Lab Director: DENG Wootenesp Syncytial VirusNot detectedNormalOhio State University Wexner Medical CenterComment on above:Performed By: #### RVP ####[address] [phone] Director: DENG Wootenhino/EnterovirusNot detectedNormalNOTDET [facility]red Hospital LimaComment on above:Performed By: #### RVP ####[address] [address] Lab Director: JACOB WootenARS-CoV-2 (COVID-19) RNA ARUN+probe Ql (Unsp spec)Not detected NormalNOTDEKettering Health Greene MemorialComment on above:Performed By: #### RVP ####[address] [address] Lab Director: Maulik Wooten A H1NOT REPORTEDNormalNOTAdams County Regional Medical CenterComment on above:Performed By: #### RVP ####[facility] [address]ccslmx[address] [place] [address] Lab Director: Brandan Ugalde MDInflkennedy A H1-2009NOT REPORTEDNormalNOTAdams County Regional Medical CenterComment on above:Performed By: #### RVP ####[facility] [address]maf4633 [place] [address] Lab Director: Maulik Wooten A H3 NOT REPORTEDNormalNOTAdams County Regional Medical CenterComment on above: Performed By: #### RVP ####[facility] [address]et[address] [place] [address] Lab Director: Devin Wooten:.NASOPHARYNGEAL SWAB NormalMerScripps Memorial HospitalComment on above:Performed By: #### RVP ####[facility] Tfm[address]kbvklmjo[address]40 [place] [address] Lab Director: Bakari Wooten Panel, Molecular, with COVID-19 (Restricted: peds pts or suitable admitted adults)on 19-28-2835Gpyftdrlre PCRNot detectedNot DetectedMercy HealthB Pertussis by PCRNot [...] PCRNot detectedNot DetectedMercy HealthParainfluenza 2 PCRNot detectedNot DetectedKettering Health SpringfieldParainfluenza 3 PCR Not detectedNot DetectedKettering Health SpringfieldParainfluenza 4 PCRNot detectedNot Detected [facility] SpringfieldResp Syncytial Virus PCRNot detectedNot DetectedKettering Health Springfield Rhino/Enterovirus PCRNot detectedNot DetectedKettering Health SpringfieldXadcndWBRK-HdJ-1 (COVID-19) RNA ARUN+probe Ql (Unsp spec)Not detectedNot DetectedKettering Health SpringfieldSpecimen Description.NASOPHARYNGEAL SWABAscension Northeast Wisconsin Mercy Medical CenterRetic Counton 10-01-2021 Absolute Retic0.070 M/uLNormal0.030-0.080Kindred Hospital LimaComment on above:Performed By: #### PTT, FIB, PT, LYTE, DBILI, TBIL, RETCT, CBC, LD, HAPT, PATH ####[address] [phone] Director: Brandan Ugalde MDIRF9.500 %Normal2.7-18.3MSan Luis Obispo General HospitalComment on above:Performed By: #### PTT, FIB, PT, LYTE, DBILI, TBIL, RETCT, CBC, LD, HAPT, PATH ####[facility] [address]fr[address] [place], [place] [phone] Director: DENG Wootenetic Count1.8 %Normal0.5-1.9 [facility] Hospital LimaComment on above:Performed By: #### PTT, FIB, PT, LYTE, DBILI, TBIL, RETCT, CBC, LD, HAPT, PATH ####[facility] [address]jbe[address] [place], [place] [phone] Director: DENG Wootenetic Sqktvwqqoc10.5 khOogkbj69.2-35.7Kindred Hospital LimaComment on above:Performed By: #### PTT, FIB, PT, LYTE, DBILI, TBIL, RETCT, CBC, LD, HAPT, PATH ####[facility] [address] [place] [address] [phone] Director: DENG Wooteneticulocyteson 02-33-6824Dcpxtgbm Retic #0.070K[facility]tering Health SpringfieldImmature Retic Fract9.5 %2.7 - 18.3 %[facility] HealthRetic %1.8 %0.5 - 1.9 % [facility] SpringfieldRetic Fwipsyeeuw88.5 pg28.2 - 35.7 pgKettering Health SpringfieldSODIUM, URINE, RANDOMon 41-83-3202Wktxgd (U) [Moles/Vol]27 mmol/LMerc HealthComment on above: No normal range established.Sodium, Random Uron 63-03-9192Oearis (U) [Moles/Vol] 27 mmol/LNormalKindred Hospital LimaComment on above:Result Comment: No normal range established.Performed By: #### UA, PRATIBHA #### [employer] [address] [place] [address] [employer] Supervisor: JACOB Wootentool PCR Batteryon 22-44-7024Vhcdetzb Description.FECESNormalMerScripps Memorial HospitalComment on above: Performed By: #### UA, UMICAO #### [employer] [address] [place] [address] [employer] Supervisor: JACOB Wootenurgical Pathologyon 66-34-0790Vmmyhiku Pathology(NOTE) [id number] [facility] [employer] CONSULTING PATHOLOGISTS [facility] ANATOMIC PATHOLOGY [address] [place] [phone] SURGICAL PATHOLOGY CONSULTATION Patient Name: CARISSA SANTOS MR#: [id number] Specimen #[id number] Procedures/Addenda PERIPHERAL BLOOD REPORT Date Ordered: 10/04/2021 Status: Signed Out Date Complete: 10/04/2021 By: Horacio Vila M.D. Date Reported: 10/04/2021 INTERPRETATION Peripheral blood: - Normocytic anemia (hemoglobin 10.9 g/dL), hypoproliferative. Recommend correlation with ferritin and other iron studies. RESULTS-COMMENTS PERIPHERAL BLOOD STUDY CBC: Please see the electronic health record for CBC parameters ([id number], 10/01/21, 08:59). PLATELETS: Platelets show normal morphology. The platelet count is 141 k/microliter. LEUKOCYTES: White blood cells show normal morphology. There are no blasts. ERYTHROCYTES: Red blood cells show normal morphology. The absolute reticulocyte count is not increased. Note: The electronic health record is reviewed. Horacio Vila M.D. Source: A: PERIPHERAL BLOODNormalMerScripps Memorial HospitalComment on above: Performed By: #### UA, UMICAO #### [employer] [address] [place] [address] [employer] Physical Security Supervisor: Brandan Ugalde MDURINALYSIS WITH MICROSCOPICon 10-01-2021-[facility] HealthAmorphous, UANOT REPORTEDNoneMercy HealthBacteria, UANOT REPORTEDNoneMercy HealthBilirubin UrineNegativeNEGATIVEMercy HealthCasts UA0 TO 2 HYALINE Reference range defined for non-centrifuged specimen.Vitryn HealthColor, UAYellow YellowMercy HealthCrystals, UANOT REPORTEDNone /HPFMercy HealthEpithelial Cells UA0 TO 2Mercy HealthGlucose, UrTRACEAbnormalNEGATIVEMercy HealthInterpretation and review of laboratory resultsAbnormalMercy HealthKetones Ql (U)Negative NEGATIVEMercy HealthLeukocyte esterase Test strip Ql (U)NegativeNEGATIVEMercy HealthMucus, UANOT REPORTEDNoneMercy HealthNitrite, UrineNegativeNEGATIVEMercy HealthOther Observations UANOT REPORTEDNOT REQ.[facility] HealthpH, UA5.5[facility] Protein, UATRACEAbnormalNEGATIVEMercy HealthRBC, UA0 TO 2[facility] HealthRenal Epithelial, UANOT REPORTED0 /HPFMercy HealthSpecific [place], UA1.006[facility] HealthTrichomonas, UANOT REPORTEDNoneMercy HealthTurbidity UAClearClearMercy HealthUrine HgbSMALLAbnormalNEGATIVEMercy HealthUrobilinogen, UrineNormalNormal [facility] HealthWBC, UA2 TO 5Mercy HealthComment on above:CORRECTED ON 10/01 AT 1024: PREVIOUSLY REPORTED 5 TO 10Yeast, UAMANYAbnormalNoneMercy HealthMercy HealthUrinalysis w/ Microon 06-50-0412Llemj RBC's0 TO 6Grlqza7-8Tlidi [facility], HillcrestComment on above:Performed By: #### UAMIC ####[facility] [address] [place], [place] [phone] Director: Luna Wooten WBC's2 TO 1Tpofrh5-5QlelhKindred Hospital LimaComment on above:Result Comment: CORRECTED ON 10/01 AT 1024: PREVIOUSLY REPORTED 5 TO 10 Performed By: #### UAMIC ####[facility] Agavmuscfsio50[address] [place], [place] [phone] Director: Brandan Ugalde MDYeastMANYAbnormalNONEMeProvidence Holy Cross Medical CenterComment on above:Performed By: #### UAMIC ####[facility] Tuv[address]ttdsfca[address] [place], [place] [phone] Director: Brandan Ugalde MD-----NormalKindred Hospital LimaComment on above:Performed By: #### UAMIC ####[facility] [address] [place] [address] [phone] Director: Raul Wooten, SemiQt,UrNegativeNormalNEGKindred Hospital LimaComment on above:Performed By: #### UAMIC ####[facility] Nzfiuukvhcmc66[address] [place], [place] [phone] Director: Ijeoma Wooten, UrineSMALLAbnormalNEGKindred Hospital LimaComment on above:Performed By: #### UAMIC ####[facility] Ilubzhqlkzgm8[address] [place], [place] [phone] Director: DANIELLE Wootenasts0 TO 2 HYALINENormal0-8 [facility] Hospital LimaComment on above:Result Comment: Reference range defined for non-centrifuged specimen.Performed By: #### UAMIC ####[facility] Jqgiexqyfqhi[address]60 [place], [place] [phone] Director: Brandan Madoff, MDClarity (U)ClearNormalCLEARMerScripps Memorial HospitalComment on above:Performed By: #### UAMIC ####[facility] [address] [place] [address] Lab Director: DANIELLE Wootenolor (U)YellowNormalYELMerScripps Memorial HospitalComment on above:Performed By: #### UAMIC ####[facility] [address] [place] [address] Lab Director: Brandan Ugalde MDEpithelial cells LM Ql (Urine sed)0 TO 6Apokgq9-2YhujzKindred Hospital LimaComment on above:Performed By: #### UAMIC ####[facility] [address] [place] [address] [phone] Director: Brandan Ugalde MDGlucose Ql (U)TRACEAbnormalNEGKindred Hospital LimaComment on above:Performed By: #### UAMIC ####[facility] [address] [place] [address] Lab Director: Brandan Ugalde MDKetones Ql (U)Negative NormalNEGKindred Hospital LimaComment on above:Performed By: #### UAMIC ####[facility] [address] [place] [address] Lab Director: Brandan Ugalde MDLeukocyte esterase Test strip Ql (U)NegativeNormal NEGKindred Hospital LimaComment on above:Performed By: #### UAMIC ####[facility] Cdmcbievzdzb7614 [place] [address] Lab Director: Brandan Ugalde MDNitrite,UrNegativeNormalNEGKindred Hospital Lima Comment on above:Performed By: #### UAMIC ####[facility] [address] [place] [address] Lab Director: DANIEL Wooten,Ur5.5Normal 5.0-8.0[facility] Hospital LimaComment on above:Performed By: #### UAMIC ####[facility] Z[address]naplzmhrf4075 [place] [address] Lab Director: DANIEL Wootenrotein Ql (U)TRACEAbnormalNEGKindred Hospital LimaComment on above:Performed By: #### UAMIC ####[facility] Xferuthfniwd3066 [place] [address] Lab Director: JACOB Wootenpec. [place],Ur1.404Zeljqi6.005-1.030[facility] Hospital LimaComment on above:Performed By: #### UAMIC ####[facility] [address]chwwcduppkz9902 [place] [address] Lab Director: Brandan Ugalde MDUrobilinogen,UrNormalNormal NORMKindred Hospital LimaComment on above:Performed By: #### UAMIC ####[facility] Dpmnuqkxwhua[address] [place] [address] Lab Director: Brandan Ugalde MDBLOOD GAS, [facility] 56-38-6520Rirxt TestNOT REPORTEDMercy HealthCarboxyhemoglobin1.5 %0 - 5 %[facility] HealthComment on above: Reference Range: Non-Smokers 0-2% Average Smoker 2-4% Heavy Smoker <10% [id number] NOT PROVIDEDMer HealthHCO3 (Bld) [Moles/Vol]17.6 mmol/LLow24 - 30 mmol/LMercy HealthInterpretation and review of laboratory resultsAbnormal Mer[facility] HealthMethemoglobinNOT REPORTED0.0 - 1.5 %[facility] HealthModeNOT REPORTED Mer[facility] HealthNegative Base Excess, Ven8.6 mmol/LHigh0.0 - 2.0 mmol/LMercy Health NOTIFICATIONNOT REPORTEDMercy HealthNOTIFICATION TIMENOT REPORTEDMercy HealthO2 Device/Flow/%NOT REPORTEDMercy HealthOxygen saturation in Blood55.1 %Low60.0 - 85.0 %[facility] HealthOxyhemoglobinNOT JTSTGOAM30.0 - 98.0 %[facility] HealthpCO2, Earnest 41.1Mercy HealthpCO2, Earnest, Temp AdjNOT REPORTEDMercy HealthPeep/CpapNOT REPORTED [facility] HealthpH, Ven7.255LowMercy HealthpH, Earnest, Temp AdjNOT REPORTEDMercy Health pO2, Ven26.8LowMercy HealthpO2, Earnest, Temp AdjNOT REPORTEDMercy HealthPositive Base Excess, VenNOT REPORTED0.0 - 2.0 mmol/LMercy HealthPSVNOT REPORTEDMercy HealthPt Temp37.0Mercy HealthPt. PositionNOT REPORTEDMercy HealthRespiratory RateNOT REPORTEDMercy HealthSample SiteNOT REPORTEDMercy HealthSet RateNOT REPORTEDMer HealthText for RespiratoryNOT REPORTEDMer HealthTotal HbNOT RTKWYSBD05.0 - 16.0 g/dlMercy HealthTotal RateNOT REPORTEDMercy HealthVTNOT REPORTEDMer HealthMercy HealthBasic Metab w/rfx MGon 71-82-7141Howiw gap [Moles/Vol]17 mmol/LNormal9-17[facility]red Hospital LimaComment on above: Performed By: #### VBG #### [facility] HospitalSoccerFreakz [address] [place] [address] [employer] Supervisor: DANIELLE Wootenhloride [Moles/Vol]119 mmol/DWonb96-884GvppyKindred Hospital LimaComment on above:Performed By: #### VBG #### [employer] [address] [place] [address] [employer] Supervisor: Brandan Ugalde MDCO2 [Moles/Vol]11 mmol/FZhi69-04FjdbeKindred Hospital LimaComment on above:Performed By: #### VBG #### [facility] HospitalSoccerFreak[facility] [address] [place] [address] [employer] Supervisor: DANIEL Wootenotassium [Moles/Vol]4.2 mmol/LNormal3.7-5.3 [facility] Hospital LimaComment on above:Result Comment: SPECIMEN SLIGHTLY HEMOLYZED, RESULTS MAY BE ADVERSELY AFFECTED.Performed By: #### VBG #### [facility] HospitalSoccerFreakz [address] [place] [address] [employer] Supervisor: JACOB Wootenodium [Moles/Vol]147 mmol/PHgpy978-636FnptoKindred Hospital LimaComment on above:Result Comment: TEST CONFIRMEDPerformed By: #### VBG #### [address] [address] [employer] Supervisor: Brandan Ugalde MD(cont.)NormalKindred Hospital Lima Comment on above:Result Comment: Average GFR for 40-49 years old: 99 mL/min/1.73sq m Chronic Kidney Disease: <60 mL/min/1.73sq m Kidney failure: <15 mL/min/1.73sq m eGFR calculated using average adult body mass. Additional eGFR calculator available at: http://www.Dubizzle/multiple_crcl_2012.htmPerformed By: #### VBG #### [address] [address] [employer] Supervisor: DANIELLE Wootenalcium [Mass/Vol]8.6 mg/dLNormal8.6-10.4Kindred Hospital LimaComment on above:Performed By: #### VBG #### [address] [address] [employer] Supervisor: DANIELLE Wootenreatinine [Mass/Vol]2.06 mg/dLHigh0.50-0.90 [facility] LimaComment on above:Performed By: #### VBG #### [facility] [address] [place] [address] [employer] Supervisor: Brandan Ugalde MDGFR, Amer32 mL/minLow>60[facility]red Hospital LimaComment on above:Performed By: #### VBG #### [facility] [address] [place] [address] [employer] Supervisor: Brandan Ugalde MDGFR,non Amer26 mL/minLow>60[facility] Hospital LimaComment on above:Performed By: #### VBG #### [facility] [place] [address] [employer] Supervisor: Brandan Ugalde MDGlucose [Mass/Vol]160 mg/iELnqn38-96KqkxeSan Luis Obispo General HospitalComment on above:Performed By: #### VBG #### [facility] [address] [place] [address] [employer] Supervisor: Brandan Ugalde MDUrea nitrogen [Mass/Vol]35 mg/dLHigh6-20[facility] Hospital LimaComment on above:Performed By: #### VBG #### [facility] [address] [place] [address] [employer] Supervisor: Brandan Ugalde MDBUN/CRE RatioNOT REPORTEDNormal9-20[facility] Hospital LimaComment on above:Performed By: #### VBG #### [facility] [address] [place] [address] [employer] Supervisor: JACOB Wootentaging:NOT REPORTEDNormalKindred Hospital LimaComment on above:Performed By: #### VBG #### [facility] [address] [place] [address] [employer] Supervisor: Brandan Ugalde MDBaharlan arh hospital Metabolic Panelon 53-65-1473Lrcaq gap [Moles/Vol]13 mmol/L9 - 17 mmol/LMercy HealthCalcium [Mass/Vol]8.9 mg/dL8.6 - 10.4 mg/dLMercy HealthChloride [Moles/Vol]119 mmol/LHigh98 - 107 mmol/LMercy HealthCO2 [Moles/Vol]13 mmol/LLow20 - 31 mmol/LMercy HealthCreatinine [Mass/Vol] 2.05 mg/dLHigh0.50 - 0.90 mg/dLMercy HealthGFR Kxmcqnkj40 mL/minLow>60 Mercy HealthGFR Non- Aiyndsrq15 mL/minLow>60Mercy HealthGFR/1.73 sq M.predicted MDRD (S/P/Bld) [Vol rate/Area][facility] SpringfieldComment on above:Average GFR for 40-49 years old: 99 mL/min/1.73sq m Chronic Kidney Disease: <60 mL/min/1.73sq m Kidney failure: <15 mL/min/1.73sq m eGFR calculated using average adult body mass. Additional eGFR calculator available at: http://www.Dubizzle/multiple_crcl_2012.htm GFR/1.73 sq M.predicted MDRD (S/P/Bld) [Vol rate/Area]NOT REPORTEDKettering Health Springfield Glucose [Mass/Vol]162 mg/tNObbs98 - 99 mg/dLKettering Health SpringfieldInterpretation and review of laboratory resultsAbnormalKettering Health SpringfieldPotassium [Moles/Vol]3.4 mmol/L Low3.7 - 5.3 mmol/LMercy HealthSodium [Moles/Vol]145 mmol/NIujf931 - 144 mmol/L [facility] SpringfieldUrea nitrogen (BldV) [Mass/Vol]35 mg/dLHigh6 - 20 mg/dLKettering Health Springfield Urea nitrogen/Creatinine (Bld) [Mass ratio]NOT REPORTEDKettering Health SpringfieldBasic Metabolic Panel w/ Reflex to MGon 21-34-0778Cohnk gap [Moles/Vol]17 mmol/L9 - 17 mmol/LMercy HealthCalcium [Mass/Vol]8.6 mg/dL8.6 - 10.4 mg/dLKettering Health Springfield Chloride [Moles/Vol]119 mmol/LHigh98 - 107 mmol/LMercy HealthCO2 [Moles/Vol]11 mmol/LLow20 - 31 mmol/LMercy HealthCreatinine [Mass/Vol]2.06 mg/dLHigh0.50 - 0.90 mg/dLCleveland Clinic HealthGFR Tcmtpbym58 mL/minLow>60Mercy HealthGFR Non- Tmjvctrk85 mL/minLow>60Mer HealthGFR/1.73 sq M.predicted MDRD (S/P/Bld) [Vol rate/Area][facility] SpringfieldComment on above:Average GFR for 40-49 years old: 99 mL/min/1.73sq m Chronic Kidney Disease: <60 mL/min/1.73sq m Kidney failure: <15 mL/min/1.73sq m eGFR calculated using average adult body mass. Additional eGFR calculator available at: http://www.Dubizzle/multiple_crcl_2012.htm GFR/1.73 sq M.predicted MDRD (S/P/Bld) [Vol rate/Area]NOT REPORTEDKettering Health Springfield Glucose [Mass/Vol]160 mg/lXLfgm37 - 99 mg/dLKettering Health SpringfieldInterpretation and review of laboratory resultsAbnormalKettering Health SpringfieldPotassium [Moles/Vol]4.2 mmol/L 3.7 - 5.3 mmol/LMercy HealthComment on above:SPECIMEN SLIGHTLY HEMOLYZED, RESULTS MAY BE ADVERSELY AFFECTED.Sodium [Moles/Vol]147 mmol/GZahq839 - 144 mmol/LMercy Memorial HospitalComment on above:TEST CONFIRMED Urea nitrogen (BldV) [Mass/Vol]35 mg/dLHigh6 - 20 mg/dLKettering Health SpringfieldUrea nitrogen/Creatinine (Bld) [Mass ratio]NOT REPORTEDAscension Northeast Wisconsin Mercy Medical CenterBasic Metabolic Profon 09-30-2021(cont.)NormalKindred Hospital LimaComment on above:Result Comment: Average GFR for 40-49 years old: 99 mL/min/1.73sq m Chronic Kidney Disease: <60 mL/min/1.73sq m Kidney failure: <15 mL/min/1.73sq m eGFR calculated using average adult body mass. Additional eGFR calculator available at: http://www.Dubizzle/multiple_crcl_2012.htmPerformed By: #### VBG #### [employer] [address] [phone] [employer] Supervisor: Brandan Ugalde MDAnion gap [Moles/Vol]13 mmol/LNormal9-17[facility] Hospital LimaComment on above:Performed By: #### CHARLYG #### [employer] [address] [place], [place] [phone] [employer] Supervisor: DANIELLE Wootenalcium [Mass/Vol]8.9 mg/dLNormal8.6-10.4[facility] Hospital LimaComment on above:Performed By: #### VBG #### [facility] [address] [place] [address] [employer] Supervisor: DANIELLE Wootenhloride [Moles/Vol]119 mmol/HVlud30-379OhwsaKindred Hospital LimaComment on above:Performed By: #### VBG #### [facility] [address] [place] [address] [employer] Supervisor: Brandan Ugalde MDCO2 [Moles/Vol]13 mmol/FNer80-22IjyybKindred Hospital LimaComment on above:Performed By: #### VBG #### [facility] [address] [place] [address] [employer] Supervisor: DANIELLE Wootenreatinine [Mass/Vol]2.05 mg/dLHigh0.50-0.90 [facility] LimaComment on above:Performed By: #### VBG #### [address] [address] [employer] Supervisor: Brandan Ugalde MDGFR, Amer32 mL/minLow>60[facility] Hospital LimaComment on above:Performed By: #### VBG #### [address] [address] [employer] Supervisor: Brandan Ugalde MDGFR,non Amer27 mL/minLow>60[facility] LimaComment on above:Performed By: #### VBG #### [facility] [address] [place] [address] [employer] Supervisor: Brandan Ugalde MDGlucose [Mass/Vol]162 mg/wIAkri60-70NzorvSan Luis Obispo General HospitalComment on above:Performed By: #### VBG #### [facility] [address] [place] [address] [employer] Supervisor: DANIEL Wootenotassium [Moles/Vol]3.4 mmol/LLow3.7-5.3[facility], HillcrestComment on above:Performed By: #### VBG #### [facility] [address] [place] [address] [employer] Supervisor: JACOB Wootenodium [Moles/Vol]145 mmol/QUtlv333-218NognhKindred Hospital LimaComment on above:Performed By: #### VBG #### [facility] [address] [place] [address] [employer] Supervisor: Brandan Ugalde MDUrea nitrogen [Mass/Vol]35 mg/dLHigh6-20[facility] LimaComment on above:Performed By: #### VBG #### [address] [address] [employer] Supervisor: CHAVO Wooten/CRE EspinozaOT REPORTEDNormal9-20[facility] LimaComment on above:Performed By: #### VBG #### [address] [address] [employer] Supervisor: JACOB Wootentaging:NOT REPORTEDNormalKindred Hospital LimaComment on above:Performed By: #### VBG #### [address] [address] [employer] Supervisor: DANIELLE Wooten Auto Differentialon 66-80-1507Frpixazx Eos # 0.03Mercy HealthAbsolute Immature Granulocyte0.05Mercy HealthAbsolute Lymph # 1.19Mercy HealthAbsolute Casey #0.43Mercy HealthBasophils (Bld) [#/Vol]10*3/uL [facility] HealthBasophils/100 WBC (Bld)0 %0 - 2 %[facility] HealthDifferential TypeNOT REPORTEDMercy HealthEosinophils/100 WBC (Bld)1 %1 - 4 %[facility] HealthHematocrit (Bld) [Volume fraction]30.9 %Low36.3 - 47.1 %[facility] Hemoglobin.gastrointestinal spec 1 Ql (Stl)10.2 g/dLLow11.9 - 15.1 g/dLKettering Health SpringfieldImmature granulocytes/100 WBC (Bld)1 %Sznl0AdwxpKettering Health SpringfieldInterpretation and review of laboratory resultsAbnormalKettering Health SpringfieldLymphocytes/100 WBC (Bld)28 %24 - 43 %German HospitalH (RBC) [Entitic mass]29.1 pg25.2 - 33.5 pgGerman HospitalHC (RBC) [Mass/Vol]33.0 g/dL28.4 - 34.8 g/dLGerman HospitalV (RBC) [Entitic vol]88.0 fL82.6 - 102.9 fLKettering Health SpringfieldMonocytes/100 WBC (Bld)10 %3 - 12 %[facility] SpringfieldNRBC Automated0.00.0 per 100 WBCKettering Health SpringfieldPlatelet distribution width (Bld) [Ratio] 14.2 %11.8 - 14.4 %[facility] SpringfieldPlatelet EstimateNOT REPORTEDKettering Health SpringfieldPlatelet mean volume (Bld) [Entitic vol]8.5 fL8.1 - 13.5 fLKettering Health SpringfieldPlatelets (Bld) [#/Vol]70 10*3/uLLowKettering Health SpringfieldRBC (Bld) [#/Vol]3.51 10*6/uLLow3.95 - 5.11 m/uL [facility] SpringfieldRBC (Bld) [#/Vol]NOT REPORTEDKettering Health SpringfieldSegmented neutrophils/100 WBC (Bld)60 %36 - 65 %[facility] SpringfieldSegs Absolute2.60[facility] SpringfieldWBC (Bld) [#/Vol] 4.3 10*3/uLKettering Health SpringfieldWBC (Bld) [#/Vol]NOT REPORTEDAscension Northeast Wisconsin Mercy Medical CenterCBC with Diffon 54-22-3994Gdr. Basophil<0.00Dadegj2.00-0.20[facility] Hospital LimaComment on above:Performed By: #### VBG #### [employer] [address] [place] [address] [employer] Supervisor: Karma Wooten.Imm.Granulocyte0.05 k/uLNormal0.00-0.30[facility] Hospital LimaComment on above:Performed By: #### VBG #### [place] [address] [employer] Supervisor: Karma Wooten.Neutrophil (Seg)2.60 k/uLNormal1.50-8.10 [facility] LimaComment on above:Performed By: #### VBG #### [place] [address] [employer] Supervisor: Brandan Ugalde MDBasophils/100 WBC (Bld)0 %Normal0-2MSan Luis Obispo General HospitalComment on above:Performed By: #### VBG #### [place] [address] [employer] Supervisor: Brandan Ugalde MDEosinophils (Bld) [#/Vol]0.03 10*3/uLNormal 0.00-0.44[facility] LimaComment on above:Performed By: #### VBG #### [place] [address] [employer] Supervisor: Brandan Ugalde MDEosinophils/100 WBC (Bld)1 %Normal1-4[facility] LimaComment on above:Performed By: #### VBG #### [place] [address] [employer] Supervisor: Brandan Ugalde MDErythrocyte distribution width (RBC) [Ratio]14.2 %Tzepar87.8-14.4[facility] LimaComment on above:Performed By: #### VBG #### [place] [address] [employer] Supervisor: Brandan Ugalde MDHematocrit (Bld) [Volume fraction]30.9 %Low 36.3-47.1MSan Luis Obispo General HospitalComment on above:Performed By: #### VBG #### [address] [address] [employer] Supervisor: Brandan Ugalde MDHemoglobin (Bld) [Mass/Vol]10.2 g/dLLow11.9-15.1 [facility] LimaComment on above:Performed By: #### VBG #### [address] [address] [employer] Supervisor: Brandan Ugalde MDImmature granulocytes/100 WBC (Bld)1 %Ooii6GkhooKindred Hospital LimaComment on above:Performed By: #### VBG #### [address] [address] [employer] Supervisor: Brandan Ugalde MDLymphocytes (Bld) [#/Vol]1.19 10*3/uLNormal 1.10-3.70[facility] LimaComment on above:Performed By: #### VBG #### [address] [address] [employer] Supervisor: German Wootenmphocytes/100 WBC (Bld)28 %Cjuizu47-77LdtljKindred Hospital LimaComment on above:Performed By: #### VBG #### [address] [address] [employer] Supervisor: GAVIN WootenCH (RBC) [Entitic mass]29.1 cxXjqvmj77.2-33.5 [facility] LimaComment on above:Performed By: #### VBG #### [address] [address] [employer] Security Supervisor: GAVIN WootenCHC (RBC) [Mass/Vol]33.0 g/lTIxgtjt69.4-34.8 [facility] LimaComment on above:Performed By: #### VBG #### [address] [address] [employer] Supervisor: GAVIN WootenCV (RBC) [Entitic vol]88.0 gDSqvdfl19.6-102.9 [facility] LimaComment on above:Performed By: #### VBG #### [address] [address] [employer] Supervisor: GAVIN Wootenonocytes (Bld) [#/Vol]0.43 10*3/uLNormal 0.10-1.20[facility] LimaComment on above:Performed By: #### VBG #### [address] [address] [employer] Security Supervisor: GAVIN Wootenonocytes/100 WBC (Bld)10 %Normal3-12[facility] LimaComment on above:Performed By: #### VBG #### [address] [address] [employer] Supervisor: Brandan Ugalde MDNeutrophil (Seg)60 %Txvifi47-81JlduuKindred Hospital LimaComment on above:Performed By: #### VBG #### [address] [address] [employer] Supervisor: Brandan Ugalde MDNRBC Automated0.0 per 100 WBCNormal0.0[facility] LimaComment on above:Performed By: #### VBG #### [address] [address] [employer] Supervisor: DANIEL Wootenlatelet mean volume (Bld) [Entitic vol]8.5 fL Normal8.1-13.5[facility] LimaComment on above:Performed By: #### VBG #### [address] [address] [employer] Supervisor: Robert Wooten (Bld) [#/Vol]70 10*3/vMQbv959-519BhinsKindred Hospital LimaComment on above:Performed By: #### VBG #### [facility] [address] [place] [address] [employer] Supervisor: BAKARI Wooten (Bld) [#/Vol]3.51 10*6/uLLow3.95-5.11[facility], HillcrestComment on above:Performed By: #### VBG #### [facility] [address] [place] [address] [employer] Supervisor: MISTY Wooten (Bld) [#/Vol]4.3 10*3/uLNormal3.5-11.3[facility], HillcrestComment on above:Performed By: #### VBG #### [address] [address] [employer] Security Supervisor: Laxmi Wooten PerformedNOT REPORTEDNormalKindred Hospital LimaComment on above:Performed By: #### VBG #### [facility] [address] [place] [address] [employer] Supervisor: Isabell Wooten CommentNOT REPORTEDNormalKindred Hospital LimaComment on above:Performed By: #### VBG #### [facility] [address] [place] [address] [employer] Supervisor: BAKARI Wooten morphology finding Nom (Bld)NOT REPORTED NormalKindred Hospital LimaComment on above:Performed By: #### VBG #### [facility] [address] [place] [address] [employer] Supervisor: MISTY Wooten MorphologyNOT REPORTEDNormalKindred Hospital LimaComment on above:Performed By: #### VBG #### [employer] [address] [place] [address] [employer] Supervisor: DANIELLE Wootenult,Urineon 66-51-4712Fbed,UrineSpecimen Description .CLEAN CATCH URINE Special Requests NOT REPORTED Culture YEAST, NOT SHENG ALBICANS OR SHENG DUBLINIENSIS 10 to 50,000 CFU/ML YEAST, NOT SHENG ALBICANS OR SHENG DUBLINIENSIS 10 to 50,000 CFU/ML DIFFERENT COLONY MORPHOLOGY Report Status FINAL 2AbnBarberton Citizens HospitalComment on above:Performed By: #### VBG #### [employer] [address] [place] [phone] [employer] Supervisor: DANIELLE Wootenulture, Urineon 38-14-3334Avbinhsn identified Cx Nom (U)YEAST, NOT SHENG ALBICANS OR SHENG DUBLINIENSIS 10 to 50,000 CFU/MLAbnormalMercy HealthBacteria identified Cx Nom (U)YEAST, NOT SHENG ALBICANS OR SHENG DUBLINIENSIS 10 to 50,000 CFU/ML DIFFERENT COLONY MORPHOLOGY AbnormalMercy HealthInterpretation and review of laboratory resultsAbnormalMercy HealthSpecial RequestsNOT REPORTEDMercy HealthSpecimen Description.CLEAN CATCH URINEMercy HealthMercy HealthElectrolyte Panelon 63-46-4386Envxf gap [Moles/Vol] 11 mmol/L9 - 17 mmol/LMercy HealthChloride [Moles/Vol]115 mmol/LHigh98 - 107 mmol/LMercy HealthCO2 [Moles/Vol]16 mmol/LLow20 - 31 mmol/LMercy Health Interpretation and review of laboratory resultsAbnormalMercy HealthPotassium [Moles/Vol]3.5 mmol/LLow3.7 - 5.3 mmol/LMercy HealthSodium [Moles/Vol]142 mmol/L 135 - 144 mmol/LMercy HealthMercy HealthElectrolyteson 98-48-1858Einmq gap [Moles/Vol]11 mmol/LNormal9-17[facility] LimaComment on above: Performed By: #### VBG #### [employer] [address] [place] [phone] [employer] Security Supervisor: Brandan Madoff, MDChloride [Moles/Vol]115 mmol/EBvfn83-093BkxvvKindred Hospital LimaComment on above:Performed By: #### VBG #### [facility] [address] [place] [address] [employer] Supervisor: Brandan Ugalde MDCO2 [Moles/Vol]16 mmol/ILwj76-69EixzuKindred Hospital LimaComment on above:Performed By: #### VBG #### [facility] [address] [place] [address] [employer] Supervisor: Brandan Ugalde MDPotassium [Moles/Vol]3.5 mmol/LLow3.7-5.3MSan Luis Obispo General HospitalComment on above:Performed By: #### VBG #### [address] [address] [employer] Physical Security Supervisor: Brandan Ugalde MDSodium [Moles/Vol]142 mmol/WZprfwh406-863KsmvmKindred Hospital LimaComment on above:Performed By: #### VBG #### [address] [address] [employer] Physical Security Supervisor: Brandan Ugalde MDHemoglobin A1Con 87-83-5171Woisypd [Mass/Vol]390 mg/dLNormalKindred Hospital LimaComment on above:Result Comment: The ADA and AACC recommend providing the estimated average glucose result to permit better patient understanding of their HBA1c result.Performed By: #### VBG #### [address] [address] [employer] Supervisor: Brandan Ugalde MDHbA1c (Bld) [Mass fraction]15.2 %High4.0-6.0 [facility] LimaComment on above:Performed By: #### VBG #### [facility] [address] [place] [address] [employer] Supervisor: Brandan Ugalde MDGlucose [Mass/Vol]390 mg/dLMercy HealthComment on above:The ADA and AACC recommend providing the estimated average glucose result to permit better patient understanding of their HBA1c result. HbA1c (Bld) [Mass fraction]15.2 %High4.0 - 6.0 %[facility] SpringfieldInterpretation and review of laboratory resultsAbnormLima Memorial Hospital HealthMAGNESIUMon 33-56-3498Ftlmgfhga [Mass/Vol]1.8 mg/dL1.6 - 2.6 mg/dLKettering Health SpringfieldMagnesiumon 65-95-6246Ubrgrlrth [Mass/Vol]1.8 mg/dLNormal1.6-2.6[facility], HillcrestComment on above:Performed By: #### VBG #### [employer] [address] [place] [address] [employer] Supervisor: Brandan Ugalde MDNo Panel Informationon 09-77-7890Rwnsn HealthPOC Glucose Fingerstickon 01-86-1268Zaihwsf [Mass/Vol]150 mg/wUHbdk27 - 105 mg/dL [facility] SpringfieldInterpretation and review of laboratory resultsAbnoAscension St Mary's HospitalGlucose [Mass/Vol]177 mg/nNZxni93 - 105 mg/dLKettering Health Springfield Interpretation and review of laboratory resultsAbAgnesian HealthCare Glucose [Mass/Vol]148 mg/fQYayy28 - 105 mg/dLCleveland Clinic HealthInterpretation and review of laboratory resultsAbnoAscension Northeast Wisconsin Mercy Medical CenterGlucose [Mass/Vol] 210 mg/bDQatr74 - 105 mg/dLCleveland Clinic HealthInterpretation and review of laboratory resultsAbAgnesian HealthCareSPECIMEN REJECTIONon 09-30-2021-NOT REPORTEDMerSkagit Regional HealthOrdered TestCDPMTriHealth Bethesda North HospitalReason for RejectionUnable to perform testing: Specimen clotted.[facility] SpringfieldComment on above:GEORGINA MONTERO NOTIFIED Specimen source Nom (Unsp spec).[facility] HealthSpecimen Rejection on [id number] for rejectionUnable to perform testing: Specimen clotted. [facility], Edwin ShawComment on above:Result Comment: GEORGINA MONTERO NOTIFIEDPerformed By: #### VBG #### [facility] [address] [place] [address] [employer] Supervisor: Devin Wooten of sample.BLOODSelect Medical [facility] Clinic Rehabilitation Hospital, Edwin ShawComment on above:Performed By: #### VBG #### [facility] [address] [place] [address] [employer] Supervisor: Brandan Ugalde MDTest orderedCDPNormalKindred Hospital LimaComment on above:Performed By: #### VBG #### [facility] [address] [place] [address] [employer] Security Supervisor: Brandan Ugalde MD-----NOT REPORTEDSelect Medical [facility] Hospital, Edwin ShawComment on above:Performed By: #### VBG #### [address] [address] [employer] Supervisor: Brandan Ugalde MDUrinalysis w/ Microon 94-31-7765Samatylel sediment LM Ql (Urine sed)NOT REPORTEDCrossroads Regional Medical CenteralWilson Memorial Hospital Comment on above:Performed By: #### UAMIC ####[facility] [address] [place] [address] [phone] Director: Brandan Ugalde MDBacteriaNOT REPORTEDNormalWilson Memorial HospitalComment on above:Performed By: #### UAMIC ####[facility] [address] [place] [phone] Director: DANIELLE Wootenrystals LM Nom (Urine sed)NOT REPORTED NormalWilson Memorial HospitalComment on above:Performed By: #### UAMIC ####[facility] [address] [place], [place] [phone] Director: Brandan Ugalde MDEpithelial, RenalNOT WMIVXEIMIivbxj5HsdrxKindred Hospital LimaComment on above:Performed By: #### UAMIC ####[facility] [address] [place], [place] [phone] Director: Ana Wooten StrandsNOT REPORTEDNormalNONEMeProvidence Holy Cross Medical Center Comment on above:Performed By: #### UAMIC ####[facility] [address] [place] [address] Lab Director: Brandan Ugalde MDOther ObservationsNOT REPORTEDNormalNREQKindred Hospital LimaComment on above:Performed By: #### UAMIC ####[facility] [address] [place], [place] [phone] Director: Chaya WootenhomonasNOT REPORTEDNormal NONEKindred Hospital LimaComment on above:Performed By: #### UAMIC ####[facility] [address] [place] [address] Lab Director: Brandan Ugalde MDVenous Blood Gaseson 77-69-8152Ccgs Temp.37.0NoWadsworth-Rittman HospitalComment on above:Performed By: #### VBG #### [facility] [address] [place] [address] [employer] Supervisor: Kenji Wooten Hgb1.5 %Normal0-5[facility] Hospital LimaComment on above:Result Comment: Reference Range: Non-Smokers 0-2% Average Smoker 2-4% Heavy Smoker <10%Performed By: #### VBG #### [facility] [address] [place] [address] [employer] Supervisor: Brandan Ugalde MDFIO2INFORMATION NOT PROVIDEDNoWadsworth-Rittman HospitalComment on above:Performed By: #### VBG #### [facility] [address] [place] [address] [employer] Supervisor: Brandan Ugalde MDHCO3 (Bld) [Moles/Vol]17.6 mmol/OFyb36-64SfryoKindred Hospital LimaComment on above:Performed By: #### VBG #### [facility] [address] [place] [address] [employer] Supervisor: Brandan Ugalde MDNegative Base Excess8.6 mmol/LHigh0.0-2.0[facility] Hospital LimaComment on above:Performed By: #### VBG #### [address] [address] [employer] Supervisor: Brandan Ugalde MDOxygen (Bld) [Partial pressure]26.8 mm[Hg]Low 30-50Kindred Hospital LimaComment on above:Performed By: #### VBG #### [address] [address] [employer] Supervisor: Brandan Ugalde MDOxygen saturation in Blood55.1 %Low60.0-85.0 [facility] LimaComment on above:Performed By: #### VBG #### [address] [address] [employer] Supervisor: Daniel WootenCO241.3Sivciy85-96RhcztKindred Hospital LimaComment on above:Performed By: #### VBG #### [address] [address] [employer] Physical Security Supervisor: Daniel Wooten (Bld)7.255 [pH]Low7.320-7.420Kindred Hospital LimaComment on above:Performed By: #### VBG #### [address] [address] [employer] Supervisor: Miguel Wooten TestNOT REPORTEDNormalKindred Hospital LimaComment on above:Performed By: #### VBG #### [address] [address] [employer] Supervisor: GAVIN WootenethemoglobinNOT REPORTEDNormal0.0-1.5[facility]red Hospital LimaComment on above:Performed By: #### VBG #### [address] [address] [employer] Supervisor: GAVIN WootenodeNOT REPORTEDNormalKindred Hospital LimaComment on above:Performed By: #### VBG #### [address] [address] [employer] Supervisor: Brandan Ugalde MDNotification TimeNOT REPORTEDNormalKindred Hospital LimaComment on above:Performed By: #### VBG #### [address] [address] [employer] Security Supervisor: Brandan Ugalde MDNotification:NOT REPORTEDNormalKindred Hospital LimaComment on above:Performed By: #### VBG #### [address] [address] [employer] Security Supervisor: Brandan Ugalde MDO2 Device/Flow/%NOT REPORTEDSelect Medical [facility], Edwin ShawComment on above:Performed By: #### VBG #### [address] [address] [employer] Supervisor: Brandan Ugalde MDOxyhemoglobinNOT SLYMTADSPgbeog43.0-98.0[facility] Hospital LimaComment on above:Performed By: #### VBG #### [address] [address] [employer] Supervisor: DANIEL Wootenco2 Adj'd for Temp.NOT BZZXGICWPuaeec61-57EuaotKindred Hospital LimaComment on above:Performed By: #### VBG #### [address] [address] [employer] Supervisor: DANIEL WootenEEP/CPAPNOT REPORTEDCrossroads Regional Medical CenteralKindred Hospital LimaComment on above:Performed By: #### VBG #### [facility] [address] [place] [address] [employer] Supervisor: Daniel Wooten Adjst'd for Temp.NOT REPORTEDNormal 7.320-7.420[facility] Hospital LimaComment on above:Performed By: #### VBG #### [facility] [address] [place] [address] [employer] Supervisor: Daniel Wooten Adj'd for Temp.NOT IPDZTXFUYzdkek17-40RhbodKindred Hospital LimaComment on above:Performed By: #### VBG #### [facility] [address] [place] [address] [employer] Supervisor: Dorita Wootentive Base ExcessNOT REPORTEDNormal0.0-2.0 [facility] Hospital LimaComment on above:Performed By: #### VBG #### [facility] [address] [place] [address] [employer] Supervisor: DANIEL WootenSVNOT REPORTEDNormalKindred Hospital LimaComment on above:Performed By: #### VBG #### [facility] [address] [place] [address] [employer] Supervisor: DANIEL Wootent. PositionNOT REPORTEDNormalKindred Hospital LimaComment on above:Performed By: #### VBG #### [facility] [address] [place] [address] [employer] Supervisor: Bakari Wooten RateNOT REPORTEDNormalKindred Hospital LimaComment on above:Performed By: #### VBG #### [facility] [address] [place] [address] [employer] Supervisor: Stanislaw Wooten RateNOT REPORTEDNormalMerScripps Memorial HospitalComment on above:Performed By: #### VBG #### [facility] [address] [place] [address] [employer] Supervisor: Lindsey Wooten DrawnNOT REPORTEDNormalKindred Hospital LimaComment on above:Performed By: #### VBG #### [facility] [address] [place] [address] [employer] Supervisor: Brandan Ugalde MDText for RespiratoryNOT REPORTEDNormalKindred Hospital LimaComment on above:Performed By: #### VBG #### [facility] [address] [place] [address] [employer] Supervisor: Constantine Wooten HbNOT VDIJUASZArqnuz81.0-16.0[facility] Hospital LimaComment on above:Performed By: #### VBG #### [facility] [address] [place] [address] [employer] Supervisor: Constantine Wooten RateNOT REPORTEDNormalKindred Hospital LimaComment on above:Performed By: #### VBG #### [facility] [address] [place] [address] [employer] Supervisor: DEMAR Wooten REPORTEDSelect Medical [facility] Rehabilitation Hospital, Edwin ShawComment on above:Performed By: #### VBG #### [facility] [address] [place] [address] [employer] Supervisor: Drew Wooten Metabolic Panelon 76-30-7043Tvmjf gap [Moles/Vol]11 mmol/L9 - 17 mmol/LMercy HealthCalcium [Mass/Vol]7.8 mg/dLLow8.6 - 10.4 mg/dLMercy HealthChloride [Moles/Vol]106 mmol/L98 - 107 mmol/LMercy Health CO2 [Moles/Vol]12 mmol/LLow20 - 31 mmol/LMercy HealthCreatinine [Mass/Vol]2.3 mg/dLHigh0.50 - 0.90 mg/dLMercy HealthGFR Sirjyckj95 mL/minLow>60Mercy HealthGFR Non- Fqobsqki01 mL/minLow>60Mercy HealthGFR/1.73 sq M.predicted MDRD (S/P/Bld) [Vol rate/Area][facility] SpringfieldComment on above:Average GFR for 40- 49 years old: 99 mL/min/1.73sq m Chronic Kidney Disease: <60 mL/min/1.73sq m Kidney failure: <15 mL/min/1.73sq m eGFR calculated using average adult body mass. Additional eGFR calculator available at: http://www.[employer]/multiple_crcl_2012.htm GFR/1.73 sq M.predicted MDRD (S/P/Bld) [Vol rate/Area]NOT REPORTEDKettering Health Springfield Glucose [Mass/Vol]301 mg/sNXvgv83 - 99 mg/dLCleveland Clinic HealthInterpretation and review of laboratory resultsAbnormalCleveland Clinic HealthPotassium [Moles/Vol]4.1 mmol/L 3.7 - 5.3 mmol/LMercy HealthComment on above:SPECIMEN SLIGHTLY HEMOLYZED, RESULTS MAY BE ADVERSELY AFFECTED.Sodium [Moles/Vol]129 mmol/SFap327 - 144 mmol/LMercy HealthUrea nitrogen (BldV) [Mass/Vol]32 mg/dLHigh6 - 20 mg/dLCleveland Clinic HealthUrea nitrogen/Creatinine (Bld) [Mass ratio]NOT REPORTEDKettering Health SpringfieldAnion gap [Moles/Vol]11 mmol/L9 - 17 mmol/LMercy HealthCalcium [Mass/Vol]8.0 mg/dLLow 8.6 - 10.4 mg/dLCleveland Clinic HealthChloride [Moles/Vol]110 mmol/LHigh98 - 107 mmol/L [facility] SpringfieldCO2 [Moles/Vol]12 mmol/LLow20 - 31 mmol/LMercy HealthCreatinine [Mass/Vol]2.29 mg/dLHigh0.50 - 0.90 mg/dLCleveland Clinic HealthGFR Useiovgl24 mL/minLow>60Mercy HealthGFR Non- Qttdlhyc70 mL/minLow>60Mer Health GFR/1.73 sq M.predicted MDRD (S/P/Bld) [Vol rate/Area][facility] SpringfieldComhen[facility] on above:Average GFR for 40-49 years old: 99 mL/min/1.73sq m Chronic Kidney Disease: <60 mL/min/1.73sq m Kidney failure: <15 mL/min/1.73sq m eGFR calculated using average adult body mass. Additional eGFR calculator available at: http://www.[employer]/Constant Insight_crcl_2012.htm GFR/1.73 sq M.predicted MDRD (S/P/Bld) [Vol rate/Area]NOT REPORTEDKettering Health Springfield Glucose [Mass/Vol]217 mg/zBFmhi46 - 99 mg/dLCleveland Clinic HealthInterpretation and review of laboratory resultsAbnormalMer HealthPotassium [Moles/Vol]3.4 mmol/L Low3.7 - 5.3 mmol/LMercy HealthSodium [Moles/Vol]133 mmol/BDgs885 - 144 mmol/L [facility] SpringfieldUrea nitrogen (BldV) [Mass/Vol]32 mg/dLHigh6 - 20 mg/dLKettering Health Springfield Urea nitrogen/Creatinine (Bld) [Mass ratio]NOT REPORTEDMer HealthAnion gap [Moles/Vol]7 mmol/LLow9 - 17 mmol/LMercy HealthCalcium [Mass/Vol]8.0 mg/dLLow8.6 - 10.4 mg/dLMercy HealthChloride [Moles/Vol]113 mmol/LHigh98 - 107 mmol/LMercy HealthCO2 [Moles/Vol]13 mmol/LLow20 - 31 mmol/LMercy HealthCreatinine [Mass/Vol] 2.39 mg/dLHigh0.50 - 0.90 mg/dLMercy HealthGFR Zkuhpnym03 mL/minLow>60 [facility] HealthGFR Non- Ksnfcybj32 mL/minLow>60Mer[facility] HealthGFR/1.73 sq M.predicted MDRD (S/P/Bld) [Vol rate/Area][facility] SpringfieldComment on above:Average GFR for 40-49 years old: 99 mL/min/1.73sq m Chronic Kidney Disease: <60 mL/min/1.73sq m Kidney failure: <15 mL/min/1.73sq m eGFR calculated using average adult body mass. Additional eGFR calculator available at: http://www.Dub[employer]/multiple_crcl_2012.htm GFR/1.73 sq M.predicted MDRD (S/P/Bld) [Vol rate/Area]NOT REPORTEDKettering Health Springfield Glucose [Mass/Vol]127 mg/zHPgoy48 - 99 mg/dLKettering Health SpringfieldPotassium [Moles/Vol]3.7 mmol/L3.7 - 5.3 mmol/LMercy HealthComment on above:SPECIMEN SLIGHTLY HEMOLYZED, RESULTS MAY BE ADVERSELY AFFECTED.Sodium [Moles/Vol]133 mmol/ZNdk847 - 144 mmol/LMercy HealthUrea nitrogen (BldV) [Mass/Vol]32 mg/dLHigh6 - 20 mg/dLKettering Health SpringfieldUrea nitrogen/Creatinine (Bld) [Mass ratio]NOT REPORTEDOhio State Health Systemsi Metabolic Profon 09-29-2021(cont.)NormalKindred Hospital LimaComment on above:Result Comment: Average GFR for 40-49 years old: 99 mL/min/1.73sq m Chronic Kidney Disease: <60 mL/min/1.73sq m Kidney failure: <15 mL/min/1.73sq m eGFR calculated using average adult body mass. Additional eGFR calculator available at: http://www.[employer]/multiple_crcl_2011.htmPerformed By: #### EMILIO CASTANEDA BMP #### [employer] [address] [place] [address] [employer] Supervisor: Brandan Ugalde MDAnion gap [Moles/Vol]11 mmol/LNormal9-17[facility]red Hospital LimaComment on above:Performed By: #### EMILIO CASTANEDA BMP #### [employer] [address] [place] [address] [employer] Supervisor: DANIELLE Wootenalcium [Mass/Vol]7.8 mg/dLLow8.6-10.4[facility] Hospital LimaComment on above:Performed By: #### EMILIO CASTANEDA BMP #### [employer] [address] [place] [address] [employer] Supervisor: DANIELLE Wootenhloride [Moles/Vol]106 mmol/REsmfum52-805UugkzKindred Hospital LimaComment on above:Performed By: #### CDP, IPF, BMP #### [facility] [address] [place] [address] [employer] Supervisor: Brandan Ugalde MDCO2 [Moles/Vol]12 mmol/CTak35-01GzmjwKindred Hospital LimaComment on above:Performed By: #### CDP, IPF, BMP #### [facility] [address] [place] [address] [employer] Supervisor: DANIELLE Wootenreatinine [Mass/Vol]2.30 mg/dLHigh0.50-0.90 [facility] LimaComment on above:Performed By: #### CDP, IPF, BMP #### [facility] [address] [place] [address] [employer] Supervisor: Brandan Ugalde MDGFR, Amer28 mL/minLow>60[facility] Hospital LimaComment on above:Performed By: #### LEONEL, IPF, BMP #### [facility] [address] [place] [address] [employer] Supervisor: Brandan Ugalde MDGFR,non Amer23 mL/minLow>60[facility] LimaComment on above:Performed By: #### LEONEL, IPF, BMP #### [address] [address] [employer] Security Supervisor: Brandan Ugalde MDGlucose [Mass/Vol]301 mg/gYPmro15-27TvtcoSan Luis Obispo General HospitalComment on above:Performed By: #### CDP, IPF, BMP #### [facility] [address] [place] [address] [employer] Supervisor: Brandan Ugalde MDPotassium [Moles/Vol]4.1 mmol/LNormal3.7-5.3 [facility] LimaComment on above:Result Comment: SPECIMEN SLIGHTLY HEMOLYZED, RESULTS MAY BE ADVERSELY AFFECTED.Performed By: #### CDP, IPF, BMP #### [facility] [address] [place] [address] [employer] Supervisor: JACOB Wootenodium [Moles/Vol]129 mmol/ZEyl793-345IippxKindred Hospital LimaComment on above:Performed By: #### CDP, IPF, BMP #### [facility] [address] [place] [address] [employer] Supervisor: Brandan Ugalde MDUrea nitrogen [Mass/Vol]32 mg/dLHigh6-20[facility] Hospital LimaComment on above:Performed By: #### CDP, IPF, BMP #### [facility] [address] [place] [address] [employer] Supervisor: Brandan Ugalde MDBUN/CRE RatioNOT REPORTEDNoal9-20[facility] Hospital LimaComment on above:Performed By: #### CDP, IPF, BMP #### [facility] [address] [place] [address] [employer] Supervisor: JACOB Wootentaging:NOT REPORTEDNoalKindred Hospital LimaComment on above:Performed By: #### CDP, IPF, BMP #### [facility] [address] [place] [address] [employer] Supervisor: Brandan Ugalde MD(cont.)[facility] Comment on above:Result Comment: Average GFR for 40-49 years old: 99 mL/min/1.73sq m Chronic Kidney Disease: <60 mL/min/1.73sq m Kidney failure: <15 mL/min/1.73sq m eGFR calculated using average adult body mass. Additional eGFR calculator available at: http://www.[employer].com/multiple_crcl_2012.htmPerformed By: #### CDP, IPF, BMP #### [facility] [address] [place] [address] [employer] Supervisor: Oksana Wooten gap [Moles/Vol]11 mmol/LNormal9-17[facility] LimaComment on above:Performed By: #### CDP, IPF, BMP #### [facility] [address] [place] [address] [employer] Supervisor: DANIELLE Wootenalcium [Mass/Vol]8.0 mg/dLLow8.6-10.4[facility] Hospital LimaComment on above:Performed By: #### CDP, IPF, BMP #### [facility] [address] [place] [address] [employer] Supervisor: Brandan Ugalde MDChloride [Moles/Vol]110 mmol/LFhvm55-614CmwezKindred Hospital LimaComment on above:Performed By: #### CDP, IPF, BMP #### [facility] [address] [place] [address] [employer] Supervisor: Brandan Ugalde MDCO2 [Moles/Vol]12 mmol/QNvc98-93UnnezKindred Hospital LimaComment on above:Performed By: #### LEONEL, IPF, BMP #### [facility] [address] [place] [address] [employer] Supervisor: DANIELLE Wootenreatinine [Mass/Vol]2.29 mg/dLHigh0.50-0.90 [facility] LimaComment on above:Performed By: #### CDP, IPF, BMP #### [facility] [address] [place] [address] [employer] Supervisor: BRAIN Wooten, Amer28 mL/minLow>60[facility] Hospital LimaComment on above:Performed By: #### CDP, IPF, BMP #### [facility] [address] [place] [address] [employer] Security Supervisor: BRAIN Wooten,non Amer23 mL/minLow>60[facility] LimaComment on above:Performed By: #### CDP, IPF, BMP #### [facility] [address] [place] [address] [employer] Supervisor: Brandan Ugalde MDGlucose [Mass/Vol]217 mg/uBIdsl99-91OpvohSan Luis Obispo General HospitalComment on above:Performed By: #### CDP, IPF, BMP #### [facility] [address] [place] [address] [employer] Security Supervisor: DANIEL Wootenotassium [Moles/Vol]3.4 mmol/LLow3.7-5.3[facility], HillcrestComment on above:Performed By: #### LEONEL, IPF, BMP #### [facility] [address] [place] [address] [employer] Supervisor: JACOB Wootenodium [Moles/Vol]133 mmol/MKdu870-536WcliyKindred Hospital LimaComment on above:Performed By: #### LEONEL, IPF, BMP #### [facility] [address] [place] [address] [employer] Supervisor: Brandan Ugalde MDUrea nitrogen [Mass/Vol]32 mg/dLHealthsouth Rehabilitation Hospital6-20[facility] LimaComment on above:Performed By: #### CDP, IPF, BMP #### [facility] [address] [place] [address] [employer] Supervisor: CHAVO Wooten/CRE RatioNOT REPORTEDNormal9-20[facility] LimaComment on above:Performed By: #### CDP, IPF, BMP #### [facility] [address] [place] [address] [employer] Supervisor: JACOB Wootentaging:NOT REPORTEDNormalKindred Hospital LimaComment on above:Performed By: #### CDP, IPF, BMP #### [facility] [address] [place] [address] [employer] Supervisor: Brandan Ugalde MD(cont.)[facility] Comment on above:Result Comment: Average GFR for 40-49 years old: 99 mL/min/1.73sq m Chronic Kidney Disease: <60 mL/min/1.73sq m Kidney failure: <15 mL/min/1.73sq m eGFR calculated using average adult body mass. Additional eGFR calculator available at: http://www.[employer]/multiple_crcl_2012.htmPerformed By: #### EMILIO CASTANEDA, BMP #### [facility] Hospital[facility] [address] [place] [address] [employer] Supervisor: Brandan Ugalde MDAnion gap [Moles/Vol]7 mmol/LLow9-17[facility] LimaComment on above:Performed By: #### EMILIO CASTANEDA, BMP #### [facility] [address] [place] [address] [employer] Supervisor: DANIELLE Wootenalcium [Mass/Vol]8.0 mg/dLLow8.6-10.4[facility] LimaComment on above:Performed By: #### LEONEL IPF, BMP #### [facility] [address] [place] [address] [employer] Supervisor: Brandan Ugalde MDChloride [Moles/Vol]113 mmol/NSybj35-871VrotmKindred Hospital LimaComment on above:Performed By: #### LEONEL IPF, BMP #### [facility] [address] [place] [address] [employer] Supervisor: Brandan Ugalde MDCO2 [Moles/Vol]13 mmol/PUrf35-27LozacKindred Hospital LimaComment on above:Performed By: #### LEONEL IPF, BMP #### [facility] [address] [place] [address] [employer] Supervisor: Brandan Ugalde MDCreatinine [Mass/Vol]2.39 mg/dLHigh0.50-0.90 [facility] LimaComment on above:Performed By: #### CDP, IPF, BMP #### [facility] [address] [place] [address] [employer] Supervisor: Brandan Ugalde MDGFR, Amer27 mL/minLow>60[facility] LimaComment on above:Performed By: #### CDP, IPF, BMP #### [facility] [address] [place] [address] [employer] Supervisor: Brandan Ugalde MDGFR,non Amer22 mL/minLow>60MerScripps Memorial HospitalComment on above:Performed By: #### CDP, IPF, BMP #### [facility] [address] [place] [address] [employer] Supervisor: Brandan Ugalde MDGlucose [Mass/Vol]127 mg/mJGeid25-99Ojdlo [facility], HillcrestComment on above:Performed By: #### LEONEL, IPF, BMP #### [address] [address] [employer] Physical Security Supervisor: DANIEL Wootenotassium [Moles/Vol]3.7 mmol/LNormal3.7-5.3 [facility] LimaComment on above:Result Comment: SPECIMEN SLIGHTLY HEMOLYZED, RESULTS MAY BE ADVERSELY AFFECTED.Performed By: #### CDP, IPF, BMP #### [address] [address] [employer] Security Supervisor: JACOB Wootenodium [Moles/Vol]133 mmol/YHsv883-636AmnegKindred Hospital LimaComment on above:Performed By: #### CDP, IPF, BMP #### [facility] [address] [place] [address] [employer] Supervisor: Brandan Ugalde MDUrea nitrogen [Mass/Vol]32 mg/dLHigh6-20MerScripps Memorial HospitalComment on above:Performed By: #### CDP, IPF, BMP #### [facility] [address] [place] [address] [employer] Supervisor: CHAVO Wooten/CRE RatioNOT REPORTEDNormal9-20[facility] LimaComment on above:Performed By: #### EMILIO CASTANEDA, BMP #### [facility] [address] [address] [employer] Physical Security Supervisor: JACOB Wootentaging:NOT REPORTEDNormalKindred Hospital LimaComment on above:Performed By: #### EMILIO CASTANEDA, BMP #### [facility] [address] [place] [address] [employer] Supervisor: Brandan Ugalde MD(cont.)[facility] Comment on above:Result Comment: Average GFR for 40-49 years old: 99 mL/min/1.73sq m Chronic Kidney Disease: <60 mL/min/1.73sq m Kidney failure: <15 mL/min/1.73sq m eGFR calculated using average adult body mass. Additional eGFR calculator available at: http://www.[employer]/multiple_crcl_2012.htmPerformed By: #### EMILIO CASTANEDA BMP #### [address] [address] [employer] Supervisor: Brandan Ugalde MDAnion gap [Moles/Vol]6 mmol/LLow9-17[facility] LimaComment on above:Performed By: #### EMILIO CASTANEDA, BMP #### [facility] [address] [place] [address] [employer] Supervisor: Brandan Ugalde MDCalcium [Mass/Vol]8.5 mg/dLLow8.6-10.4[facility] LimaComment on above:Performed By: #### EMILIO CASTANEDA, BMP #### [facility] [address] [place] [address] [employer] Supervisor: Brandan Ugalde MDChloride [Moles/Vol]110 mmol/IVyfg22-700XxwscKindred Hospital LimaComment on above:Performed By: #### CDP, IPF, BMP #### [facility] [address] [place] [address] [employer] Supervisor: DANIELLE WootenO2 [Moles/Vol]15 mmol/LVhb24-51UzoweKindred Hospital LimaComment on above:Performed By: #### CDP, IPF, BMP #### [facility] [address] [place] [address] [employer] Supervisor: DANIELLE Wootenreatinine [Mass/Vol]2.24 mg/dLHigh0.50-0.90 [facility] LimaComment on above:Performed By: #### CDP, IPF, BMP #### [facility] [address] [place] [address] [employer] Supervisor: Brandan Ugalde MDGFR, Amer29 mL/minLow>60[facility] LimaComment on above:Performed By: #### CDP, IPF, BMP #### [facility] [address] [place] [address] [employer] Supervisor: Brandan Ugalde MDGFR,non Amer24 mL/minLow>60[facility] LimaComment on above:Performed By: #### CDP, IPF, BMP #### [facility] [address] [place] [address] [employer] Supervisor: Brandan Ugalde MDGlucose [Mass/Vol]156 mg/fVUhva93-68UmgefSan Luis Obispo General HospitalComment on above:Performed By: #### CDP, IPF, BMP #### [facility] [address] [place] [address]681 [employer] Supervisor: DANIEL Wootenotassium [Moles/Vol]3.4 mmol/LLow3.7-5.3MSan Luis Obispo General HospitalComment on above:Performed By: #### CDP, IPF, BMP #### [facility] [address] [place] [address] [phone] [employer] Supervisor: JACOB Wootenodium [Moles/Vol]131 mmol/TGoo439-300LvdjeKindred Hospital LimaComment on above:Performed By: #### CDP IPF, BMP #### [facility] [address] [place], [place] [phone] [employer] Supervisor: Brandan Ugalde MDUrea nitrogen [Mass/Vol]32 mg/dLHigh6-20[facility] LimaComment on above:Performed By: #### CDP, IPF, BMP #### [facility] [address] [place] [address] [employer] Supervisor: Brandan Ugalde MDBlood Gas, Venouson [id number] TestNOT REPORTEDMercy HealthCarboxyhemoglobin1.2 %0 - 5 %[facility] HealthComment on above: Reference Range: Non-Smokers 0-2% Average Smoker 2-4% Heavy Smoker <10% [id number] NOT PROVIDEDMercy HealthHCO3 (Bld) [Moles/Vol]15.2 mmol/LLow24 - 30 mmol/LMercy HealthInterpretation and review of laboratory resultsAbnormal [facility] HealthMethemoglobinNOT REPORTED0.0 - 1.5 %[facility] HealthModeNOT REPORTED [facility] HealthNegative Base Excess, Ven10.6 mmol/LHigh0.0 - 2.0 mmol/LMercy Health NOTIFICATIONNOT REPORTEDMercy HealthNOTIFICATION TIMENOT REPORTEDMercy HealthO2 Device/Flow/%NOT REPORTEDMercy HealthOxygen saturation in Blood80.9 %60.0 - 85.0 %[facility] HealthOxyhemoglobinNOT SECLFVQN95.0 - 98.0 %[facility] HealthpCO2, Ven34.9Low [facility] HealthpCO2, Earnest, Temp AdjNOT REPORTEDMercy HealthPeep/CpapNOT REPORTED [facility] HealthpH, Ven7.261LowMercy HealthpH, Earnest, Temp AdjNOT REPORTEDMercy Health pO2, Ven39.5[facility] HealthpO2, Earnest, Temp AdjNOT REPORTEDMercy HealthPositive Base Excess, VenNOT REPORTED0.0 - 2.0 mmol/LMercy HealthPSVNOT REPORTEDMercy HealthPt Temp37.0[facility] HealthPt. PositionNOT REPORTEDMer HealthRespiratory RateNOT REPORTEDCleveland Clinic HealthSample SiteNOT REPORTEDMer HealthSet RateNOT REPORTEDCleveland Clinic HealthText for RespiratoryNOT REPORTEDCleveland Clinic HealthTotal HbNOT OFHDNSFJ10.0 - 16.0 g/dlMer HealthTotal RateNOT REPORTEDMer HealthVTNOT REPORTEDAscension Northeast Wisconsin Mercy Medical CenterCBC auto differentialon 60-10-3514Jnhalxbk Eos #<0.03Mer HealthAbsolute Immature Granulocyte0.07Mer HealthAbsolute Lymph #1.85Mer HealthAbsolute Casey #0.79Mer HealthBasophils (Bld) [#/Vol]10*3/uLMer Health Basophils/100 WBC (Bld)0 %0 - 2 %[facility] HealthDifferential TypeNOT REPORTEDMer HealthEosinophils/100 WBC (Bld)0 %Low1 - 4 %[facility] SpringfieldHematocrit (Bld) [Volume fraction]34.1 %Low36.3 - 47.1 %[facility] SpringfieldHemoglobin.gastrointestinal spec 1 Ql (Stl)10.8 g/dLLow11.9 - 15.1 g/dLKettering Health SpringfieldImmature granulocytes/100 WBC (Bld)1 %Ndhi2Eescl HealthInterpretation and review of laboratory resultsAbnormal [facility] SpringfieldLymphocytes/100 WBC (Bld)21 %Low24 - 43 %German HospitalH (RBC) [Entitic mass]28.1 pg25.2 - 33.5 pgGerman HospitalHC (RBC) [Mass/Vol]31.7 g/dL 28.4 - 34.8 g/dLGerman HospitalV (RBC) [Entitic vol]88.6 fL82.6 - 102.9 fLCleveland Clinic HealthMonocytes/100 WBC (Bld)9 %3 - 12 %[facility] SpringfieldNRBC Automated0.00.0 per 100 WBCCleveland Clinic HealthPlatelet distribution width (Bld) [Ratio]14.0 %11.8 - 14.4 %[facility] HealthPlatelet EstimateNOT REPORTEDCleveland Clinic HealthPlatelet mean volume (Bld) [Entitic vol]9.0 fL8.1 - 13.5 fLCleveland Clinic HealthPlatelets (Bld) [#/Vol]107 10*3/uL LowKettering Health SpringfieldRB (Bld) [#/Vol]3.85 10*6/uLLow3.95 - 5.11 m/uLKettering Health SpringfieldRB (Bld) [#/Vol]NOT REPORTEDCleveland Clinic Lutheran Hospitalgmented neutrophils/100 WBC (Bld)69 %High 36 - 65 %[facility] SpringfieldSegs Absolute6.03[facility] SpringfieldWBC (Bld) [#/Vol]8.8 10*3/uL [facility] SpringfieldWBC (Bld) [#/Vol]NOT REPORTEDAscension Northeast Wisconsin Mercy Medical CenterCB with Diffon [id number]. Basophil<0.19Osybnx6.00-0.20[facility] Comment on above:Performed By: #### EMILIO CASTANEDA, BMP #### [place] [address] [employer] Supervisor: Karma Wooten. Eosinophil<0.33Ntszry7.00-0.44[facility] LimaComment on above:Performed By: #### LEONEL IPF, BMP #### [facility] [address] [place] [address] [employer] Supervisor: MDAbs. SugarImm.Granulocyte0.07 k/uLNormal0.00-0.30[facility] LimaComment on above:Performed By: #### LEONEL IPF, BMP #### [facility] [address] [place] [address] [employer] Supervisor: MDAbs. SugarNeutrophil (Seg)6.03 k/uLNormal1.50-8.10 [facility] LimaComment on above:Performed By: #### LEONEL, IPF, BMP #### [facility] [address] [place] [address] [employer] Supervisor: Brandan Ugalde MDBasophils/100 WBC (Bld)0 %Normal0-2MercMartin Luther Hospital Medical CenterComment on above:Performed By: #### CDP, IPF, BMP #### [address] [address] [employer] Supervisor: Brandan Ugalde MDEosinophils/100 WBC (Bld)0 %Low1-4[facility] LimaComment on above:Performed By: #### LEONEL IPF, BMP #### [address] [address] [employer] Supervisor: Brandan Ugalde MDErythrocyte distribution width (RBC) [Ratio]14.0 %Zlpgyx31.8-14.4[facility] LimaComment on above:Performed By: #### EMILIO CASTANEDA, BMP #### [address] [address] [employer] Supervisor: Brandan Ugalde MDHematocrit (Bld) [Volume fraction]34.1 %Low 36.3-47.1MSan Luis Obispo General HospitalComment on above:Performed By: #### LEONEL IPF, BMP #### [address] [address] [employer] Supervisor: Brandan Ugalde MDHemoglobin (Bld) [Mass/Vol]10.8 g/dLLow11.9-15.1 [facility] LimaComment on above:Performed By: #### LEONEL IPF, BMP #### [address] [address] [employer] Supervisor: Brandan Ugalde MDImmature granulocytes/100 WBC (Bld)1 %Srnz4AfislKindred Hospital LimaComment on above:Performed By: #### LEONEL IPF, BMP #### [address] [address] [employer] Supervisor: Brandan Ugalde MDLymphocytes (Bld) [#/Vol]1.85 10*3/uLNormal 1.10-3.70[facility] LimaComment on above:Performed By: #### LEONEL IPF, BMP #### [facility] [address] [place] [address] [employer] Supervisor: Brandan Ugalde MDLymphocytes/100 WBC (Bld)21 %Lak50-46DvuvaKindred Hospital LimaComment on above:Performed By: #### CDP, IPF, BMP #### [address] [address] [employer] Supervisor: GAVIN WootenCH (RBC) [Entitic mass]28.1 ljEpnquk52.2-33.5 [facility] LimaComment on above:Performed By: #### CDP, IPF, BMP #### [address] [address] [employer] Supervisor: GAVIN WootenCHC (RBC) [Mass/Vol]31.7 g/mNHvhvla21.4-34.8 [facility] LimaComment on above:Performed By: #### CDP, IPF, BMP #### [address] [address] [employer] Supervisor: GAVIN WootenCV (RBC) [Entitic vol]88.6 gJAsjxun44.6-102.9 [facility] LimaComment on above:Performed By: #### CDP, IPF, BMP #### [address] [address] [employer] Supervisor: Brandan Ugalde MDMonocytes (Bld) [#/Vol]0.79 10*3/uLNormal 0.10-1.20[facility] LimaComment on above:Performed By: #### CDP, IPF, BMP #### [facility] [address] [place] [address] [employer] Supervisor: GAVIN Wootenonocytes/100 WBC (Bld)9 %Normal3-12[facility] LimaComment on above:Performed By: #### CDP, IPF, BMP #### [facility] [place] [address] [employer] Security Supervisor: Sanna Wooten (Seg)69 %Qfqi05-97ByzfoKindred Hospital LimaComment on above:Performed By: #### CDP, IPF, BMP #### [facility] [address] [place] [address] [employer] Supervisor: GOLDIE Wooten Automated0.0 per 100 WBCNormal0.0[facility] LimaComment on above:Performed By: #### CDP, IPF, BMP #### [facility] [address] [place] [address] [employer] Supervisor: Isabell Wooten mean volume (Bld) [Entitic vol]9.0 fL Normal8.1-13.5[facility] LimaComment on above:Performed By: #### CDP, IPF, BMP #### [facility] [address] [place] [address] [employer] Supervisor: Robert Wooten (Bld) [#/Vol]107 10*3/lFBuy895-421 [facility] LimaComment on above:Performed By: #### CDP, IPF, BMP #### [facility] [address] [place] [address] [employer] Supervisor: BAKARI Wooten (Bld) [#/Vol]3.85 10*6/uLLow3.95-5.11[facility] LimaComment on above:Performed By: #### CDP, IPF, BMP #### [facility] [address] [place] [address] [employer] Supervisor: MISTY Wooten (Bld) [#/Vol]8.8 10*3/uLNormal3.5-11.3MSan Luis Obispo General HospitalComment on above:Performed By: #### CDP, IPF, BMP #### [facility] [address] [place] [address] [employer] Supervisor: Laxmi Wooten Diff PerformedNOT REPORTEDCrossroads Regional Medical CenteralKindred Hospital LimaComment on above:Performed By: #### CDP, IPF, BMP #### [facility] [address] [place] [address] [employer] Security Supervisor: Isabell Wooten CommentNOT REPORTEDSelect Medical [facility] Rehabilitation Hospital, Edwin ShawComment on above:Performed By: #### CDP, IPF, BMP #### [facility] [address] [place] [address] [employer] Supervisor: BAKARI Wooten morphology finding Nom (Bld)NOT REPORTED [facility], Edwin ShawComment on above:Performed By: #### CDP, IPF, BMP #### [facility] [address] [place] [address] [employer] Supervisor: MISTY Wooten MorphologyNOT REPORTEDSelect Medical [facility] Hospital, Edwin ShawComment on above:Performed By: #### CDP, IPF, BMP #### [facility] [address] [place] [address] [employer] Supervisor: DENI Wooten DNA Probe, Nasalon 19-12-4586AQLL, DNA, NasalNegativeNEGATIVEKettering Health SpringfieldComment on above:NEGATIVE: MRSA DNA not detected by nucleic acid amplification. Results should be used as an adjunct to nosocomial control efforts to identify patients needing enhanced precautions. The test is not intended to identify patients with staphylococcal infections. Results should not be used to guide or monitor treatment for MRSA infections. Specimen Description.NASAL SWABMerFormerly [facility] HealthMRSA, DNA, Nasalon 66-46-5931RRAE, DNA, NasalNegativeMercy Health Clermont Hospital Comment on above:Result Comment: NEGATIVE: MRSA DNA not detected by nucleic acid amplification. Results should be used as an adjunct to nosocomial control efforts to identify patients needing enhanced precautions. The test is not intended to identify patients with staphylococcal infections. Results should not be used to guide or monitor treatment for MRSA infections. Performed By: #### EMILIO CASTANEDA, BMP #### [employer] [address] [place] [address] [employer] Supervisor: Shama Wootengnesiumon 68-72-2948Hnqilqxqk [Mass/Vol]1.7 mg/dLNormal1.6-2.6[facility], HillcrestComment on above:Performed By: #### EMILIO CASTANEDA, BMP #### [facility] [address] [place] [phone] [employer] Supervisor: Brandan Ugalde MDMagnesium [Mass/Vol]1.7 mg/dL1.6 - 2.6 mg/dL [facility] HealthMagnesium [Mass/Vol]1.8 mg/dLNormal1.6-2.6[facility], HillcrestComment on above:Performed By: #### EMILIO CASTANEDA, BMP #### [employer] [address] [place] [address] [employer] Supervisor: Brandan Ugalde MDMagnesium [Mass/Vol]1.8 mg/dL1.6 - 2.6 mg/dL [facility] HealthMagnesium [Mass/Vol]1.9 mg/dLNormal1.6-2.6[facility], HillcrestComment on above:Performed By: #### EMILIO CASTANEDA, BMP #### [employer] [address] [place] [address] [employer] Supervisor: Brandan Ugalde MDMagnesium [Mass/Vol]1.9 mg/dL1.6 - 2.6 mg/dL [facility] HealthMagnesium [Mass/Vol]1.8 mg/dLNormal1.6-2.6[facility], HillcrestComment on above:Performed By: #### EMILIO CASTANEDA, BMP #### [employer] [address] [place] [address] [employer] Supervisor: Brandan Ugalde MDNo Panel Informationon 37-36-1865Ujpzq Health Mercy HealthInterpretation and review of laboratory resultsAbnoMilwaukee Regional Medical Center - Wauwatosa[note 3] Glucose Fingerstickon 88-32-5418Kwudayq [Mass/Vol]159 mg/dLHigh 65 - 105 mg/dLCleveland Clinic HealthInterpretation and review of laboratory results AbnormalMerFormerly [facility] HealthGlucose [Mass/Vol]166 mg/iEGmcy60 - 105 mg/dL [facility] HealthInterpretation and review of laboratory resultsAbnormalAurora Medical Center OshkoshGlucose [Mass/Vol]227 mg/wLDilz68 - 105 mg/dLCleveland Clinic Health Interpretation and review of laboratory resultsAbnormSpooner Health Glucose [Mass/Vol]290 mg/dSVneu08 - 105 mg/dLCleveland Clinic HealthInterpretation and review of laboratory resultsAbnormSpooner HealthGlucose [Mass/Vol] 269 mg/hFWsxy70 - 105 mg/dLCleveland Clinic HealthInterpretation and review of laboratory resultsAbnormalAscension Northeast Wisconsin Mercy Medical CenterGlucose [Mass/Vol]137 mg/dUWhbi47 - 105 mg/dLCleveland Clinic HealthInterpretation and review of laboratory resultsAbnoLicking Memorial Hospital HealthPhosphoruson 45-23-5244Ulvevysbd [Mass/Vol]3.1 mg/dL2.6 - 4.5 mg/dLKettering Health SpringfieldPhosphate [Mass/Vol]3.0 mg/dL2.6 - 4.5 mg/dLK[facility]tering Health Springfield Phosphate [Mass/Vol]1.9 mg/dLLow2.6 - 4.5 mg/dLKettering Health SpringfieldPhosphorus, Inorg.on 09-33-1905Ulqznadtmf, Inorg.3.1 mg/dLNormal2.6-4.5[facility] LimaComment on above:Performed By: #### LEONEL IPF, BMP #### [employer] [address] [place] [phone] [employer] Supervisor: DANIEL Wootenhosphorus, Inorg.3.0 mg/dLNormal2.6-4.5[facility] LimaComment on above:Performed By: #### LEONEL, IPF, BMP #### [employer] [address] [place] [address] [employer] Physical Security Supervisor: DANIEL Wootenhosphorus, Inorg.1.9 mg/dLLow2.6-4.[address] [place], [place] [address]Comment on above:Performed By: #### CDP, IPF, BMP #### [facility] [address] [place] [address] [employer] Supervisor: DANIEL Wootenhosphorus, Inorg.1.9 mg/dLLow2.6-4.5[facility] LimaComment on above:Performed By: #### LEONEL, IPF, BMP #### [facility] [address] [place] [address] [employer] Supervisor: JOSE Wooten REJECTIONon 09-29-2021-NOT REPORTED [facility] SpringfieldOrdered TestBlanchard Valley Health SystemReason for RejectionUnable to perform testing: Specimen clotted.[facility] SpringfieldSpecimen source Nom (Unsp spec).[facility] Rice LakeSpecimen Rejectionon [id number] for rejectionUnable to perform testing: Specimen clotted.[facility], Edwin ShawComment on above:Performed By: #### LEONEL, IPF, BMP #### [employer] [address] [place] [address] [employer] Supervisor: Devin Wooten of sample.Fisher-Titus Medical CenterComment on above:Performed By: #### CDP, IPF, BMP #### [facility] [address] [place] [address] [employer] Supervisor: Brandan Ugalde MDTest orderedUC HealthComment on above:Performed By: #### LEONEL, IPF, BMP #### [employer] [address] [place] [address] [employer] Supervisor: Brandan Ugalde MD-----NOT REPORTEDSelect Medical [facility] Rehabilitation Hospital, Edwin ShawComment on above:Performed By: #### CDP, IPF, BMP #### [facility] [address] [place] [address] [employer] Supervisor: Brandan Ugalde MDVenous Blood Gaseson 40-20-4817Dqwb Temp.37.0 NormalKindred Hospital LimaComment on above:Performed By: #### CDP, IPF, BMP #### [facility] [address] [place] [address] [employer] Supervisor: DANIELLE Wootenarboxmarco antonio Hgb1.2 %Normal0-5[facility] LimaComment on above:Result Comment: Reference Range: Non-Smokers 0-2% Average Smoker 2-4% Heavy Smoker <10%Performed By: #### CDP, IPF, BMP #### [facility] [address] [place] [address] [employer] Supervisor: Brandan Ugalde MDFIO2INFORMATION NOT PROVIDEDNormalKindred Hospital LimaComment on above:Performed By: #### CDP, IPF, BMP #### [facility] [address] [place] [address] [employer] Supervisor: Brandan Ugalde MDHCO3 (Bld) [Moles/Vol]15.2 mmol/BJna49-31BfkorKindred Hospital LimaComment on above:Performed By: #### CDP, IPF, BMP #### [facility] [address] [place] [address] [employer] Supervisor: Brandan Ugalde MDNegative Base Qjigwr72.6 mmol/LHigh0.0-2.0[facility] LimaComment on above:Performed By: #### CDP, IPF, BMP #### [facility] [address] [place] [address] [employer] Supervisor: Brandan Ugalde MDOxygen (Bld) [Partial pressure]39.5 mm[Hg]Normal 30-50[facility] LimaComment on above:Performed By: #### CDP, IPF, BMP #### [facility] [address] [place] [address] [employer] Supervisor: Brandan Ugalde MDOxygen saturation in Blood80.9 %Rnkaoz33.0-85.0 [facility] LimaComment on above:Performed By: #### CDP, IPF, BMP #### [facility] [address] [place] [address] [employer] Supervisor: Daniel WootenCO234.8Yao54-17KhpphKindred Hospital Lima Comment on above:Performed By: #### CDP, IPF, BMP #### [address] [address] [employer] Supervisor: Daniel Wooten (Bld)7.261 [pH]Low7.320-7.420[facility] LimaComment on above:Performed By: #### CDP, IPF, BMP #### [address] [address] [employer] Supervisor: Miguel Wooten TestNOT REPORTEDNormalKindred Hospital LimaComment on above:Performed By: #### CDP, IPF, BMP #### [facility] [address] [place] [address] [employer] Supervisor: GAVIN WootenethemoglobinNOT REPORTEDNormal0.0-1.5[facility] LimaComment on above:Performed By: #### CDP, IPF, BMP #### [facility] [address] [place] [address] [employer] Supervisor: GAVIN WootenodeNOT REPORTEDNormalKindred Hospital LimaComment on above:Performed By: #### CDP, IPF, BMP #### [facility] [address] [place] [address] [employer] Supervisor: Ary Wootenification TimeNOT REPORTEDNormalKindred Hospital LimaComment on above:Performed By: #### CDP, IPF, BMP #### [facility] [address] [place] [address] [employer] Supervisor: Brandan Ugalde MDNotification:NOT REPORTEDNormalKindred Hospital LimaComment on above:Performed By: #### CDP, IPF, BMP #### [facility] [address] [place] [address] [employer] Supervisor: Brandan Ugalde MDO2 Device/Flow/%NOT REPORTEDNormalKindred Hospital LimaComment on above:Performed By: #### CDP, IPF, BMP #### [facility] [address] [place] [address] [employer] Supervisor: Brandan Ugalde MDOxyhemoglobinNOT VPQKJAPLYsvaty07.0-98.0[facility] LimaComment on above:Performed By: #### CDP, IPF, BMP #### [facility] [address] [place] [address] [employer] Supervisor: DANIEL Wootenco2 Adj'd for Temp.NOT VRPQWGSQBzqqiz39-45JehoxKindred Hospital LimaComment on above:Performed By: #### CDP, IPF, BMP #### [facility] [address] [place] [address] [employer] Supervisor: DANIEL WootenEEP/CPAPNOT REPORTEDNormalKindred Hospital LimaComment on above:Performed By: #### CDP, IPF, BMP #### [facility] [address] [place] [address] [employer] Supervisor: Daniel Wooten Adjst'd for Temp.NOT REPORTEDNormal 7.320-7.420[facility] LimaComment on above:Performed By: #### CDP, IPF, BMP #### [facility] [address] [place] [address] [employer] Security Supervisor: Daniel WootenO2 Adj'd for Temp.NOT FPOXXDNEXcvoae73-01Bkgmr [facility], HillcrestComment on above:Performed By: #### CDP, IPF, BMP #### [facility] [address] [place] [address] [employer] Supervisor: Dorita Wootentive Base ExcessNOT REPORTEDNormal0.0-2.0 [facility] LimaComment on above:Performed By: #### CDP, IPF, BMP #### [facility] [address] [place] [address] [employer] Supervisor: DANIEL WootenSVNOT REPORTEDNormalMercy [facility] Center, HillcrestComment on above:Performed By: #### CDP, IPF, BMP #### [facility] [address] [place] [address] [employer] Security Supervisor: Pat Wooten. PositionNOT REPORTEDNormalMercy [facility] Center, HillcrestComment on above:Performed By: #### LEONEL, IPF, BMP #### [facility] [address] [place] [address] [employer] Supervisor: Bakari Wooten RateNOT REPORTEDNormalKindred Hospital LimaComment on above:Performed By: #### CDP, IPF, BMP #### [facility] [address] [place] [address] [employer] Supervisor: Stanislaw Wooten RateNOT REPORTEDNormalMercy [facility], HillcrestComment on above:Performed By: #### CDP, IPF, BMP #### [facility] [address] [place] [address] [employer] Supervisor: Lindsey Wooten DrawnNOT REPORTEDNormalMercy U[facility] Center, HillcrestComment on above:Performed By: #### CDP, IPF, BMP #### [facility] [address] [place] [address] [employer] Physical Security Supervisor: Donald Wooten for RespiratoryNOT REPORTEDNormalMercy San Luis Rey Hospital CenterComment on above:Performed By: #### LEONEL, IPF, BMP #### [facility] [address] [place] [address] [employer] Physical Security Supervisor: Constantine Wooten HbNOT UBTBWLQNOzetsf80.0-16.0MerScripps Memorial HospitalComment on above:Performed By: #### LEONEL IPF, BMP #### [facility] [address] [place] [address] [employer] Supervisor: Constantine Wooten RateNOT REPORTEDNormalKindred Hospital LimaComment on above:Performed By: #### LEONEL IPF, BMP #### [facility] [address] [place] [address] [employer] Security Supervisor: DEMAR Wooten REPORTEDrmalKindred Hospital LimaComment on above:Performed By: #### LEONEL IPF, BMP #### [facility] [address] [place] [address] [employer] Security Supervisor: DREW Wooten METABOLIC PANELon 22-54-8207Xoviv gap [Moles/Vol]13 mmol/L9 - 17 mmol/LMercy HealthCalcium [Mass/Vol]8.7 mg/dL8.6 - 10.4 mg/dLMercy HealthChloride [Moles/Vol]115 mmol/LHigh98 - 107 mmol/LMercy HealthCO2 [Moles/Vol]14 mmol/LLow20 - 31 mmol/LMercy HealthCreatinine [Mass/Vol] 2.15 mg/dLHigh0.50 - 0.90 mg/dLMercy HealthGFR Qjiphsnb39 mL/minLow>60 [facility] HealthGFR Non- Mtritchk87 mL/minLow>60Mercy HealthGFR/1.73 sq M.predicted MDRD (S/P/Bld) [Vol rate/Area][facility] SpringfieldComment on above:Average GFR for 40-49 years old: 99 mL/min/1.73sq m Chronic Kidney Disease: <60 mL/min/1.73sq m Kidney failure: <15 mL/min/1.73sq m eGFR calculated using average adult body mass. Additional eGFR calculator available at: http://www.[employer]/multiple_crcl_2012.htm GFR/1.73 sq M.predicted MDRD (S/P/Bld) [Vol rate/Area]NOT REPORTEDMercy Health Glucose [Mass/Vol]160 mg/dCInxx68 - 99 mg/dLMercy HealthInterpretation and review of laboratory resultsAbnormalMercy HealthPotassium [Moles/Vol]2.9 mmol/L Critically low3.7 - 5.3 mmol/LMercy HealthSodium [Moles/Vol]142 mmol/L135 - 144 mmol/LMercy HealthUrea nitrogen (BldV) [Mass/Vol]33 mg/dLHigh6 - 20 mg/dLMercy HealthUrea nitrogen/Creatinine (Bld) [Mass ratio]NOT REPORTEDMer HealthMercy HealthBLOOD GAS, VENOUSon 57-50-6696Wvciy TestNOT REPORTEDMer Health Carboxyhemoglobin2.2 %0 - 5 %[facility] HealthComment on above: Reference Range: Non-Smokers 0-2% Average Smoker 2-4% Heavy Smoker <10% NHO8IDWAMTUXwptf HealthHCO3 (Bld) [Moles/Vol]17.3 mmol/LLow24 - 30 mmol/LMercy HealthInterpretation and review of laboratory resultsAbnormalMer Health MethemoglobinNOT REPORTED0.0 - 1.5 %[facility] HealthModeNOT REPORTEDMercy Health Negative Base Excess, Ven8.2 mmol/LHigh0.0 - 2.0 mmol/LMercy HealthNOTIFICATION NOT REPORTEDMercy HealthNOTIFICATION TIMENOT REPORTEDMercy HealthO2 Device/Flow/%NOT REPORTEDMercy HealthOxygen saturation in Blood80.7 %60.0 - 85.0 %[facility] HealthOxyhemoglobinNOT WBTITCLI89.0 - 98.0 %[facility] HealthpCO2, Ven37.0Low [facility] HealthpCO2, Earnest, Temp AdjNOT REPORTEDMercy HealthPeep/CpapNOT REPORTED [facility] HealthpH, Ven7.290LowMercy HealthpH, Earnest, Temp AdjNOT REPORTEDMercy Health pO2, Ven34.0Mercy HealthpO2, Earnest, Temp AdjNOT REPORTEDMercy HealthPositive Base Excess, VenNOT REPORTED0.0 - 2.0 mmol/LMercy HealthPSVNOT REPORTEDMer HealthPt Temp37.0Mer HealthPt. PositionNOT REPORTEDMer HealthRespiratory RateNOT REPORTEDMer HealthSample SiteNOT REPORTEDMercy HealthSet RateNOT REPORTEDMer HealthText for RespiratoryNOT REPORTEDMer HealthTotal HbNOT RYXKINHN76.0 - 16.0 g/dlMer HealthTotal RateNOT REPORTEDMer HealthVTNOT REPORTEDAscension Northeast Wisconsin [facility] Medical CenterBasic Metabolic Panelon 67-20-1266Ajyxv gap [Moles/Vol]6 mmol/LLow9 - 17 mmol/LMercy HealthCalcium [Mass/Vol]8.5 mg/dLLow8.6 - 10.4 mg/dL [facility] HealthChloride [Moles/Vol]110 mmol/LHigh98 - 107 mmol/LMercy HealthCO2 [Moles/Vol]15 mmol/LLow20 - 31 mmol/LMercy HealthCreatinine [Mass/Vol]2.24 mg/dL High0.50 - 0.90 mg/dLMercy HealthGFR Wdflubww91 mL/minLow>60[facility] GFR Non- Ldbcmvfk57 mL/minLow>60[facility] HealthGFR/1.73 sq M.predicted MDRD (S/P/Bld) [Vol rate/Area][facility] SpringfieldComment on above:Average GFR for 40-49 years old: 99 mL/min/1.73sq m Chronic Kidney Disease: <60 mL/min/1.73sq m Kidney failure: <15 mL/min/1.73sq m eGFR calculated using average adult body mass. Additional eGFR calculator available at: http://www.[employer]/multiple_crcl_2012.htm GFR/1.73 sq M.predicted MDRD (S/P/Bld) [Vol rate/Area]NOT REPORTEDKettering Health Springfield Glucose [Mass/Vol]156 mg/bXJuke47 - 99 mg/dLCleveland Clinic HealthPotassium [Moles/Vol]3.4 mmol/LLow3.7 - 5.3 mmol/LMercy HealthSodium [Moles/Vol]131 mmol/DBdu101 - 144 mmol/LMercy HealthUrea nitrogen (BldV) [Mass/Vol]32 mg/dLHigh6 - 20 mg/dLMer HealthUrea nitrogen/Creatinine (Bld) [Mass ratio]NOT REPORTEDMer HealthAnion gap [Moles/Vol]10 mmol/L9 - 17 mmol/LMercy HealthCalcium [Mass/Vol]8.2 mg/dLLow 8.6 - 10.4 mg/dLMercy HealthChloride [Moles/Vol]113 mmol/LHigh98 - 107 mmol/L [facility] HealthCO2 [Moles/Vol]16 mmol/LLow20 - 31 mmol/LMercy HealthCreatinine [Mass/Vol]2.2 mg/dLHigh0.50 - 0.90 mg/dLMer HealthGFR Eenpxhbi05 mL/minLow>60Mer HealthGFR Non- Eieseshb65 mL/minLow>60[facility] GFR/1.73 sq M.predicted MDRD (S/P/Bld) [Vol rate/Area][facility] SpringfieldComment on above:Average GFR for 40-49 years old: 99 mL/min/1.73sq m Chronic Kidney Disease: <60 mL/min/1.73sq m Kidney failure: <15 mL/min/1.73sq m eGFR calculated using average adult body mass. Additional eGFR calculator available at: http://www.[employer]/multiple_crcl_2012.htm GFR/1.73 sq M.predicted MDRD (S/P/Bld) [Vol rate/Area]NOT REPORTEDKettering Health Springfield Glucose [Mass/Vol]231 mg/pJQwex82 - 99 mg/dLKettering Health SpringfieldPotassium [Moles/Vol]4.5 mmol/L3.7 - 5.3 mmol/LMbrown memorial hospitaly HealthComment on above:SPECIMEN SLIGHTLY HEMOLYZED, RESULTS MAY BE ADVERSELY AFFECTED.Sodium [Moles/Vol]139 mmol/L135 - 144 mmol/L [facility] HealthUrea nitrogen (BldV) [Mass/Vol]33 mg/dLHigh6 - 20 mg/dLKettering Health Springfield Urea nitrogen/Creatinine (Bld) [Mass ratio]NOT REPORTEDMer HealthAnion gap [Moles/Vol]17 mmol/L9 - 17 mmol/LMercy HealthCalcium [Mass/Vol]8.7 mg/dL8.6 - 10.4 mg/dLMercy HealthChloride [Moles/Vol]116 mmol/LHigh98 - 107 mmol/LMercy HealthCO2 [Moles/Vol]12 mmol/LLow20 - 31 mmol/LMercy HealthCreatinine [Mass/Vol] 2.22 mg/dLHigh0.50 - 0.90 mg/dLMercy HealthGFR Irvwygaa56 mL/minLow>60 [facility] HealthGFR Non- Yfuebliq72 mL/minLow>60[facility] HealthGFR/1.73 sq M.predicted MDRD (S/P/Bld) [Vol rate/Area][facility] SpringfieldComment on above:Average GFR for 40-49 years old: 99 mL/min/1.73sq m Chronic Kidney Disease: <60 mL/min/1.73sq m Kidney failure: <15 mL/min/1.73sq m eGFR calculated using average adult body mass. Additional eGFR calculator available at: http://www.[employer]/multiple_crcl_2012.htm GFR/1.73 sq M.predicted MDRD (S/P/Bld) [Vol rate/Area]NOT REPORTEDKettering Health Springfield Glucose [Mass/Vol]232 mg/hFHtvt19 - 99 mg/dLMercy HealthPotassium [Moles/Vol]3.2 mmol/LLow3.7 - 5.3 mmol/LMercy HealthSodium [Moles/Vol]145 mmol/XBqwr372 - 144 mmol/LMercy HealthUrea nitrogen (BldV) [Mass/Vol]35 mg/dLHigh6 - 20 mg/dLCleveland Clinic HealthUrea nitrogen/Creatinine (Bld) [Mass ratio]NOT REPORTEDKettering Health SpringfieldBasic Metabolic Profon [id number]/CRE RatioNOT REPORTEDNormal9-20[facility] LimaComment on above:Performed By: #### EMILIO CASTANEDA BMP #### [employer] [address] [place], [place] [phone] [employer] Supervisor: JACOB Wootentaging:NOT REPORTEDNormalKindred Hospital LimaComment on above:Performed By: #### EMILIO CASTANEDA BMP #### [employer] [address] [place] [address] [employer] Supervisor: Brandan Ugalde MD(cont.)[facility] Comment on above:Result Comment: Average GFR for 40-49 years old: 99 mL/min/1.73sq m Chronic Kidney Disease: <60 mL/min/1.73sq m Kidney failure: <15 mL/min/1.73sq m eGFR calculated using average adult body mass. Additional eGFR calculator available at: http://www.[employer]/multiple_crcl_2012.htmPerformed By: #### EMILIO CASTANEDA, BMP #### [facility] [address] [place] [address] [employer] Supervisor: Brandan Ugalde MDAnion gap [Moles/Vol]10 mmol/LNormal9-17[facility] LimaComment on above:Performed By: #### EMILIO CASTANEDA, BMP #### [facility] [address] [place] [address] [employer] Supervisor: DANIELLE Wootenalcium [Mass/Vol]8.2 mg/dLLow8.6-10.4[facility] LimaComment on above:Performed By: #### LEONEL IPF, BMP #### [facility] [address] [place] [address] [employer] Supervisor: Brandan Ugalde MDChloride [Moles/Vol]113 mmol/YGcxv22-647PpizfKindred Hospital LimaComment on above:Performed By: #### LEONEL IPF, BMP #### [facility] [address] [place] [address] [employer] Supervisor: Brandan Ugalde MDCO2 [Moles/Vol]16 mmol/WWhh59-00RxjvkKindred Hospital LimaComment on above:Performed By: #### LEONEL IPF, BMP #### [facility] [address] [place] [address] [employer] Supervisor: DANIELLE Wootenreatinine [Mass/Vol]2.20 mg/dLHigh0.50-0.90 [facility] LimaComment on above:Performed By: #### LEONEL IPF, BMP #### [facility] [address] [place] [address] [employer] Supervisor: Brandan Ugalde MDGFR, Amer30 mL/minLow>60MerScripps Memorial HospitalComment on above:Performed By: #### LEONEL IPF, BMP #### [facility] [address] [place] [address] [employer] Supervisor: Brandan Ugalde MDGFR,non Amer24 mL/minLow>60[facility] LimaComment on above:Performed By: #### LEONEL IPF, BMP #### [facility] [address] [place] [address] [employer] Supervisor: Brandan Ugalde MDGlucose [Mass/Vol]231 mg/kVUhsb22-56Ueweo [facility], HillcrestComment on above:Performed By: #### EMILIO ACSTANEDA, BMP #### [facility] [address] [place] [address] [employer] Supervisor: DANIEL Wootenotassium [Moles/Vol]4.5 mmol/LNormal3.7-5.3 [facility] LimaComment on above:Result Comment: SPECIMEN SLIGHTLY HEMOLYZED, RESULTS MAY BE ADVERSELY AFFECTED.Performed By: #### LEONEL IPF, BMP #### [facility] [address] [place] [address] [employer] Supervisor: Brandan Ugalde MDSodium [Moles/Vol]139 mmol/DOgjzis789-765CpyxvKindred Hospital LimaComment on above:Performed By: #### LEONEL IPF, BMP #### [facility] [address] [place] [address] [employer] Supervisor: Brandan Ugalde MDUrea nitrogen [Mass/Vol]33 mg/dLHigh6-20MerScripps Memorial HospitalComment on above:Performed By: #### CDP, IPF, BMP #### [facility] [address] [place] [address] [employer] Supervisor: CHAVO Wooten/ABI Ramey REPORTEDNormal9-20[facility] LimaComment on above:Performed By: #### CDP, IPF, BMP #### [facility] [address] [place] [address] [employer] Supervisor: JACOB Wootentaging:NOT REPORTEDNormalKindred Hospital LimaComment on above:Performed By: #### CDP, IPF, BMP #### [facility] [address] [place] [address] [employer] Supervisor: Brandan Ugalde MD(cont.)[facility] Comment on above:Result Comment: Average GFR for 40-49 years old: 99 mL/min/1.73sq m Chronic Kidney Disease: <60 mL/min/1.73sq m Kidney failure: <15 mL/min/1.73sq m eGFR calculated using average adult body mass. Additional eGFR calculator available at: http://www.[employer]/multiple_crcl_2012.htmPerformed By: #### BMP, MG, MARZENA #### [facility] [address] [place] [address] [employer] Supervisor: Brandan Ugalde MDAnion gap [Moles/Vol]17 mmol/LNormal9-17[facility] LimaComment on above:Performed By: #### BMP, MG, MARZENA #### [facility] [address] [place] [address] [employer] Supervisor: Brandan Ugalde MDCalcium [Mass/Vol]8.7 mg/dLNormal8.6-10.4[facility] LimaComment on above:Performed By: #### BMP, MG, MARZENA #### [facility] [address] [place] [address] [employer] Supervisor: DANIELLE Wootenhloride [Moles/Vol]116 mmol/UVclu13-217ZpbcmKindred Hospital LimaComment on above:Performed By: #### BMP, MG, MARZENA #### [facility] [address] [place] [address] [employer] Supervisor: Brandan Ugalde MDCO2 [Moles/Vol]12 mmol/LJok18-42LdsysKindred Hospital LimaComment on above:Performed By: #### BMP, MG, MARZENA #### [facility] [address] [place] [address] [employer] Supervisor: DANIELLE Wootenreatinine [Mass/Vol]2.22 mg/dLHigh0.50-0.90 [facility] LimaComment on above:Performed By: #### BMP, MG, MARZENA #### [address] [address] [employer] Supervisor: Brandan Ugalde MDGFR, Amer29 mL/minLow>60[facility] LimaComment on above:Performed By: #### BMP, MG, MARZENA #### [facility] [address] [place] [address] [employer] Supervisor: Brandan Ugalde MDGFR,non Amer24 mL/minLow>60[facility] LimaComment on above:Performed By: #### BMP, MG, MARZENA #### [facility] [address] [place] [address] [employer] Supervisor: Brandan Ugalde MDGlucose [Mass/Vol]232 mg/fBIhme47-73QafamSan Luis Obispo General HospitalComment on above:Performed By: #### BMP, MG, MARZENA #### [facility] [address] [place] [address] [employer] Supervisor: Brandan Ugalde MDPotassium [Moles/Vol]3.2 mmol/LLow3.7-5.3MSan Luis Obispo General HospitalComment on above:Performed By: #### BMP, MG, MARZENA #### [facility] [address] [place] [address] [employer] Supervisor: JACOB Wootenodium [Moles/Vol]145 mmol/GAgfr519-981XrrlfKindred Hospital LimaComment on above:Performed By: #### BMP, MG, MARZENA #### [facility] [address] [place] [address] [employer] Supervisor: Brandan Ugalde MDUrea nitrogen [Mass/Vol]35 mg/dLHigh6-20[facility] LimaComment on above:Performed By: #### BMP, MG, MARZENA #### [facility] [address] [place] [address] [employer] Supervisor: Brandan Ugalde MDBUN/CRE RatioNOT REPORTEDNormal9-20[facility] LimaComment on above:Performed By: #### BMP, MG, MARZENA #### [facility] [address] [place] [address] [employer] Supervisor: JACOB Wootentaging:NOT REPORTEDNormalKindred Hospital LimaComment on above:Performed By: #### BMP, MG, MARZENA #### [facility] [address] [place] [address] [employer] Supervisor: Brandan Ugalde MD(cont.)[facility] Comment on above:Result Comment: Average GFR for 40-49 years old: 99 mL/min/1.73sq m Chronic Kidney Disease: <60 mL/min/1.73sq m Kidney failure: <15 mL/min/1.73sq m eGFR calculated using average adult body mass. Additional eGFR calculator available at: http://www.[employer]com/multiple_crcl_2012.htmPerformed By: #### CDP, IPF, BMP #### [facility] [address] [place] [address] [employer] Supervisor: Brandan Madoff, MDAnion gap [Moles/Vol]13 mmol/LNormal9-17[facility] LimaComment on above:Performed By: #### LEONEL IPF, BMP #### [facility] [address] [place] [address] [employer] Supervisor: Brandan Ugalde MDCalcium [Mass/Vol]8.7 mg/dLNormal8.6-10.4[facility] LimaComment on above:Performed By: #### LEONEL, IPF, BMP #### [facility] [address] [place] [address] [employer] Supervisor: Brandan Ugalde MDChloride [Moles/Vol]115 mmol/PTgwn97-506IafhjKindred Hospital LimaComment on above:Performed By: #### LEONEL IPF, BMP #### [facility] [address] [place] [address] [employer] Supervisor: Brandan Ugalde MDCO2 [Moles/Vol]14 mmol/DHti21-45OctfxKindred Hospital LimaComment on above:Performed By: #### LEONEL, IPF, BMP #### [facility] [address] [place] [address] [employer] Supervisor: Brandan Ugalde MDCreatinine [Mass/Vol]2.15 mg/dLHigh0.50-0.90 [facility] LimaComment on above:Performed By: #### LEONEL, IPF, BMP #### [facility] [address] [place] [address] [employer] Supervisor: BRAIN Wooten, Amer30 mL/minLow>60[facility] LimaComment on above:Performed By: #### LEONEL, IPF, BMP #### [facility] [address] [place] [address] [employer] Supervisor: BRAIN Wooten,non Amer25 mL/minLow>60[facility] LimaComment on above:Performed By: #### CDP, IPF, BMP #### [facility] [address] [place] [address] [employer] Supervisor: Brandan Ugalde MDGlucose [Mass/Vol]160 mg/pFUysg67-71UfqjqSan Luis Obispo General HospitalComment on above:Performed By: #### CDP, IPF, BMP #### [facility] [address] [place] [address] [employer] Supervisor: DANIEL Wootenotassium [Moles/Vol]2.9 mmol/LCritically low 3.7-5.3MSan Luis Obispo General HospitalComment on above:Performed By: #### CDP, IPF, BMP #### [facility] [address] [place] [address] [employer] Supervisor: JACOB Wootenodium [Moles/Vol]142 mmol/KPkssho650-938CvzzkKindred Hospital LimaComment on above:Performed By: #### CDP, IPF, BMP #### [facility] [address] [place] [address] [employer] Supervisor: Brandan Ugalde MDUrea nitrogen [Mass/Vol]33 mg/dLHealthsouth Rehabilitation Hospital6-20[facility] LimaComment on above:Performed By: #### CDP, IPF, BMP #### [facility] [address] [place] [address] [employer] Supervisor: CHAVO Wooten/CRE RatioNOT REPORTEDNormal9-20[facility] LimaComment on above:Performed By: #### CDP, IPF, BMP #### [facility] [address] [place] [address] [employer] Supervisor: JACOB Wootentaging:NOT REPORTEDNormalKindred Hospital LimaComment on above:Performed By: #### CDP, IPF, BMP #### [facility] [address] [place] [address] [employer] Supervisor: DANIELLE Wooten WITH AUTO DIFFERENTIALon [id number] Eos #<0.03[facility] SpringfieldAbsolute Immature Granulocyte0.18[facility] SpringfieldAbsolute Lymph #1.06LowKettering Health SpringfieldAbsolute Casey #1.03MerSkagit Regional HealthBasophils (Bld) [#/Vol] 10*3/uLMerSkagit Regional HealthBasophils/100 WBC (Bld)0 %0 - 2 %[facility] SpringfieldDifferential TypeNOT REPORTEDKettering Health SpringfieldEosinophils/100 WBC (Bld)0 %Low1 - 4 %[facility] Hematocrit (Bld) [Volume fraction]36.2 %Low36.3 - 47.1 %[facility] Hemoglobin.gastrointestinal spec 1 Ql (Stl)12.8 g/dL11.9 - 15.1 g/dLKettering Health Springfield Immature granulocytes/100 WBC (Bld)1 %Zguk5HtonlKettering Health SpringfieldInterpretation and review of laboratory resultsAbnormalKettering Health SpringfieldLymphocytes/100 WBC (Bld)8 %Low24 - 43 %German HospitalH (RBC) [Entitic mass]29.1 pg25.2 - 33.5 pgGerman HospitalHC (RBC) [Mass/Vol]35.4 g/rAAygk74.4 - 34.8 g/dLGerman HospitalV (RBC) [Entitic vol]82.3 fLLow82.6 - 102.9 fLKettering Health SpringfieldMonocytes/100 WBC (Bld)8 %3 - 12 %[facility] NRBC Automated0.00.0 per 100 WBCKettering Health SpringfieldPlatelet distribution width (Bld) [Ratio]13.2 %11.8 - 14.4 %[facility] SpringfieldPlatelet EstimateNOT REPORTEDKettering Health Springfield Platelet mean volume (Bld) [Entitic vol]NOT REPORTED8.1 - 13.5 fLKettering Health Springfield Platelets (Bld) [#/Vol]See Reflexed IPF ResultKettering Health SpringfieldRBC (Bld) [#/Vol]4.40 10*6/uL3.95 - 5.11 m/uLKettering Health SpringfieldRBC (Bld) [#/Vol]MICROCYTOSIS PRESENTKettering Health SpringfieldSegmented neutrophils/100 WBC (Bld)82 %High36 - 65 %[facility] HealthSegs Jrwmjudt47.34HighKettering Health SpringfieldWBC (Bld) [#/Vol]12.6 10*3/uLHighKettering Health SpringfieldWBC (Bld) [#/Vol]NOT REPORTEDFroedtert West Bend Hospital with Diffon [id number]. Basophil<0.46Dwqumj3.00-0.20[facility] LimaComment on above: Performed By: #### LEONEL IPF, BMP #### [employer] [address] [place] [address] [employer] Supervisor: Karma Wooten. Eosinophil<0.49Fggjgx2.00-0.44[facility] Hospital LimaComment on above:Performed By: #### EMILIO CASTANEDA, BMP #### [employer] [address] [place] [address] [employer] Supervisor: MDAbs. SugarImm.Granulocyte0.18 k/uLNormal0.00-0.30[facility] LimaComment on above:Performed By: #### LEONEL IPF, BMP #### [employer] [address] [place] [address] [employer] Supervisor: Karma Wooten.Neutrophil (Seg)10.34 k/uLHigh1.50-8.10[facility] LimaComment on above:Performed By: #### LEONEL IPF, BMP #### [employer] [address] [place] [address] [employer] Supervisor: Brandan Ugalde MDBasophils/100 WBC (Bld)0 %Normal0-2[facility], HillcrestComment on above:Performed By: #### LEONEL IPF, BMP #### [employer] [address] [place] [address] [employer] Supervisor: Brandan Ugalde MDEosinophils/100 WBC (Bld)0 %Low1-4[facility] LimaComment on above:Performed By: #### LEONEL IPF, BMP #### [facility] [address] [place] [address]842 [employer] Supervisor: Brandan Ugalde MDErythrocyte distribution width (RBC) [Ratio]13.2 %Svmcss75.8-14.4[facility] LimaComment on above:Performed By: #### LEONEL IPF, BMP #### [address] [address] [employer] Supervisor: Brandan Ugalde MDHematocrit (Bld) [Volume fraction]36.2 %Low 36.3-47.1MSan Luis Obispo General HospitalComment on above:Performed By: #### LEONEL IPF, BMP #### [place] [address] [employer] Supervisor: Brandan Ugalde MDHemoglobin (Bld) [Mass/Vol]12.8 g/dLNormal 11.9-15.1MSan Luis Obispo General HospitalComment on above:Performed By: #### LEONEL IPF, BMP #### [facility] [address] [place] [address] [employer] Supervisor: Brandan Ugalde MDImmature granulocytes/100 WBC (Bld)1 %Yjkw5TspiuKindred Hospital LimaComment on above:Performed By: #### LEONEL IPF, BMP #### [place] [address] [employer] Supervisor: Brandan Ugalde MDLymphocytes (Bld) [#/Vol]1.06 10*3/uLLow 1.10-3.70[facility] LimaComment on above:Performed By: #### LEONEL, IPF, BMP #### [facility] [address] [place] [address] [employer] Supervisor: German Wootenmphocytes/100 WBC (Bld)8 %Fks22-07VzvpuKindred Hospital LimaComment on above:Performed By: #### LEONEL, IPF, BMP #### [facility] [place] [address] [employer] Supervisor: GAVIN WootenCH (RBC) [Entitic mass]29.1 flKsjoxp51.2-33.5 [facility] LimaComment on above:Performed By: #### CDP, IPF, BMP #### [facility] [address] [place] [address] [employer] Supervisor: GAVIN WootenCHC (RBC) [Mass/Vol]35.4 g/iNWqmg19.4-34.8[facility] LimaComment on above:Performed By: #### CDP, IPF, BMP #### [facility] [address] [place] [address]69 [employer] Supervisor: GAVIN WootenCV (RBC) [Entitic vol]82.3 fLLow82.6-102.9[facility] LimaComment on above:Performed By: #### CDP, IPF, BMP #### [facility] [address] [place] [address]187 [employer] Supervisor: GAVIN Wootenonocytes (Bld) [#/Vol]1.03 10*3/uLNormal 0.10-1.20[facility] LimaComment on above:Performed By: #### LEONEL, IPF, BMP #### [facility] [address] [place] [address]36 [employer] Supervisor: GAVIN Wootenonocytes/100 WBC (Bld)8 %Normal3-12[facility] LimaComment on above:Performed By: #### CDP, IPF, BMP #### [facility] [address] [place] [address] [employer] Supervisor: Brandan Ugalde MDNeutrophil (Seg)82 %Hfta33-71XoahyKindred Hospital LimaComment on above:Performed By: #### CDP, IPF, BMP #### [employer] [address] [place] [address] [employer] Supervisor: GOLDIE Wooten Automated0.0 per 100 WBCNormal0.0[facility] LimaComment on above:Performed By: #### CDP, IPF, BMP #### [facility] [address] [place] [address] [employer] Supervisor: Isabell Wooten CountSee Reflexed IPF ResultNormal 138-453Kind[facility] Hospital LimaComment on above:Performed By: #### CDP, IPF, BMP #### [facility] [address] [place] [address] [employer] Supervisor: BAKARI Wooten (Bld) [#/Vol]4.40 10*6/uLNormal3.95-5.11 [facility] LimaComment on above:Performed By: #### CDP, IPF, BMP #### [facility] [address] [place] [address] [employer] Supervisor: BAKARI Wooten morphology finding Nom (Bld)MICROCYTOSIS [facility] Center at RiverBendComment on above:Performed By: #### CDP, IPF, BMP #### [address] [address] [employer] Supervisor: MISTY Wooten (Bld) [#/Vol]12.6 10*3/uLHigh3.5-11.3MSan Luis Obispo General HospitalComment on above:Performed By: #### CDP, IPF, BMP #### [facility] [address] [place] [address] [employer] Supervisor: Laxmi Wooten Diff PerformedNOT REPORTEDSelect Medical [facility], [facility] ShawComment on above:Performed By: #### CDP, IPF, BMP #### [facility] [address] [place] [address] [employer] Supervisor: GAVIN WootenPVNOT REPORTEDNormal8.1-13.5[facility] LimaComment on above:Performed By: #### EMILIO CASTANEDA BMP #### [facility] [address] [place] [address] [employer] Supervisor: Sadaf Wootentelet CommentNOT [facility] Falls Medical CenterComment on above:Performed By: #### EMILIO CASTANEDA, BMP #### [facility] [address] [place] [address]28 [employer] Supervisor: MISTY Wooten MorphologyNOT [facility] Medical CenterComment on above:Performed By: #### EMILIO CASTANEDA, BMP #### [facility] [address] [place] [address] [employer] Supervisor: Becky Wooten Platelet Fractionon 09-28-2021 Interpretation and review of laboratory resultsAbnormalCleveland Clinic HealthPlatelet, Kkpzapajkpxe571Mreqj HealthComment on above:ORDERED BY LABPlatelet, Immature Fraction0.4 %Low1.1 - 10.3 %[facility] SpringfieldComhenry [facility] on above:ORDERED BY LABMercy HealthLACTIC ACID, WHOLE BLOODon [id number] Acid, Whole Blood1.4 mmol/L0.7 - 2.1 mmol/LMercy Keenan Private HospitalLactic Acid,Whole Blon 60-20-8487Zqnhmb Acid,Whole Bl1.4 mmol/LNormal0.7-2.1[facility], HillcrestComment on above:Performed By: #### LACWB #### [facility] [address] [place] [address] [employer] Supervisor: DENI Wooten, DNA, Nasalon [id number] Description.NASAL SWABNormalKindred Hospital LimaComment on above: Performed By: #### EMILIO CASTANEDA, BMP #### [facility] [address] [place] [address] [employer] Physical [employer] Supervisor: Brandansevero Ugalde MDMagnesiumon 18-41-2242Vwbiucndm [Mass/Vol]1.8 mg/dL1.6 - 2.6 mg/dLMercy HealthMagnesium [Mass/Vol]1.9 mg/dLNormal1.6-2.6Mer[facility], HillcrestComment on above:Performed By: #### CDP, IPF, BMP #### [facility] [address] [place] [address] [phone] [employer] Physical Security Supervisor: Brandan Ugalde, MDMagnesium [Mass/Vol]1.9 mg/dL1.6 - 2.6 mg/dL [facility] HealthMagnesium [Mass/Vol]2.1 mg/dLNormal1.6-2.6MercMartin Luther Hospital Medical CenterComment on above:Performed By: #### BMP, MG, MARZENA #### [facility] [address] [place] [address] [phone] [employer] Security Supervisor: Brandan Ugalde, MDMagnesium [Mass/Vol]2.1 mg/dL1.6 - 2.6 mg/dL [facility] HealthMicroscopic Urinalysison 09-28-2021-[facility] HealthAmorphous, UANOT REPORTEDNoneMercy HealthBacteria, UANOT REPORTEDNoneMercy HealthCasts UAFINE GRANULARMercy HealthCasts UA5 TO 10Mer[facility] HealthCrystals, UANOT REPORTEDNone /HPF [facility] HealthEpithelial Cells UA5 TO 10Mercy HealthInterpretation and review of laboratory resultsAbnormalMercy HealthMucus, UANOT REPORTEDNoneMercy HealthOther Observations UANOT REPORTEDNOT REQ.[facility] HealthRBC, UA5 TO 10Mercy HealthRenal Epithelial, UANOT REPORTED0 /HPFMercy HealthTrichomonas, UANOT REPORTEDNoneMercy HealthWBC, UA5 TO 10[facility] HealthYeast, UAMODERATEAbnormalNoneMercy HealthMercy HealthNo Panel Informationon 31-28-1822Ywdnynssrngvma and review of laboratory resultsAbnormalMercy HealthMercy HealthInterpretation and review of laboratory resultsAbnormalMercy HealthMercy HealthInterpretation and review of laboratory resultsAbnormalMercy HealthMercy HealthPLT, Immature Fract.on 09-28-2021 Platelet, Fluoresc.147 k/tTUyldkz146-725Eqhen [facility], HillcrestComment on above:Result Comment: ORDERED BY LABPerformed By: #### LEONEL, IPF, BMP #### [facility] [address] [place], [place] [phone] Corporate Physical Security Supervisor: ROSELIA Wooten, Immature Fract.0.4 %Low1.1-10.3[facility], HillcrestComment on above:Result Comment: ORDERED BY LABPerformed By: #### LEONEL, IPF, BMP #### [facility] [address] [place], [place] [phone] Corporate Physical Security Supervisor: YARI Wooten Glucose Fingerstickon 85-17-4274Suhchei [Mass/Vol]140 mg/lJOkwk16 - 105 mg/dLCleveland Clinic HealthInterpretation and review of laboratory resultsAbnoAscension Northeast Wisconsin Mercy Medical CenterGlucose [Mass/Vol]148 mg/dL High65 - 105 mg/dLCleveland Clinic HealthInterpretation and review of laboratory results AbnormalAscension Northeast Wisconsin Mercy Medical CenterGlucose [Mass/Vol]161 mg/pENupu44 - 105 mg/dL [facility] HealthInterpretation and review of laboratory resultsAbnoAscension St Mary's HospitalGlucose [Mass/Vol]176 mg/mFRjxo74 - 105 mg/dLKettering Health [facility] Interpretation and review of laboratory resultsAbnoAscension Northeast Wisconsin [facility] Glucose [Mass/Vol]212 mg/vWRnvz30 - 105 mg/dLCleveland Clinic HealthInterpretation and review of laboratory resultsAbnormSpooner HealthGlucose [Mass/Vol] 223 mg/wLIdpw29 - 105 mg/dLCleveland Clinic HealthInterpretation and review of laboratory resultsAbnormLima Memorial Hospital HealthGlucose [Mass/Vol]208 mg/iDWhou61 - 105 mg/dLCleveland Clinic HealthInterpretation and review of laboratory resultsAbnormSpooner HealthGlucose [Mass/Vol]248 mg/xVVyhg39 - 105 mg/dLCleveland Clinic Health Interpretation and review of laboratory resultsAbnormalMercy HealthMercy Health Glucose [Mass/Vol]217 mg/xVVsdm92 - 105 mg/dLMer HealthInterpretation and review of laboratory resultsAbnormalAvita Health Systemcy HealthGlucose [Mass/Vol] 205 mg/vKNuta51 - 105 mg/dLMer HealthInterpretation and review of laboratory resultsAbnormalFairfield Medical Center HealthGlucose [Mass/Vol]199 mg/kQPnry74 - 105 mg/dLMer HealthInterpretation and review of laboratory resultsAbnormalFairfield Medical Center HealthGlucose [Mass/Vol]178 mg/eECmsz08 - 105 mg/dLCleveland Clinic Health Interpretation and review of laboratory resultsAbnormLima Memorial Hospital Health Glucose [Mass/Vol]151 mg/eLHyfa24 - 105 mg/dLMer HealthInterpretation and review of laboratory resultsAbnormLima Memorial Hospital HealthGlucose [Mass/Vol] 162 mg/nZJwst40 - 105 mg/dLMer HealthInterpretation and review of laboratory resultsAbnormLima Memorial Hospital HealthPhosphoruson 30-83-0059Nmkynvchw [Mass/Vol]1.9 mg/dLLow2.6 - 4.5 mg/dLMer HealthPhosphate [Mass/Vol]1.6 mg/dL Low2.6 - 4.5 mg/dLMercy HealthPhosphate [Mass/Vol]1.9 mg/dLLow2.6 - 4.5 mg/dL Merc HealthPhosphorus, Inorg.on 21-89-4931Oulwkgostr, Inorg.1.6 mg/dLLow2.6-4.5 [facility] Hospital LimaComment on above:Performed By: #### CDP, IPF, BMP #### [facility] [address] [place], [place] [phone] [employer] Physical Security Supervisor: DANIEL Wootenhosphorus, Inorg.1.9 mg/dLLow2.6-4.5[facility] Hospital LimaComment on above:Performed By: #### CDP, IPF, BMP #### [facility] [address] [place] [address] [phone] [employer] Supervisor: Brandan Ugalde MDUrinalysison 02-60-9291Vvfiespix UrineNegative NEGATIVEMercy HealthColor, UAYellowYellowMercy HealthGlucose, Ur1+Abnormal NEGATIVEMercy HealthInterpretation and review of laboratory resultsAbnormalMercy HealthKetones Ql (U)SMALLAbnormalNEGATIVEMercy HealthLeukocyte esterase Test strip Ql (U)MODERATEAbnormalNEGATIVEMercy HealthNitrite, UrineNegativeNEGATIVE [facility] HealthpH, UA5.5Mercy HealthProtein, UA2+AbnormalNEGATIVEMercy Health Specific [place], UA1.016Mercy HealthTurbidity UATurbidAbnormalClearMercy Health Urinalysis CommentsNOT REPORTEDMercy HealthUrine HgbLARGEAbnormalNEGATIVEMercy HealthUrobilinogen, UrineNormalNormalMercy HealthMercy HealthUrinalysis, Routine on 29-04-8255Xtnjmxoam, SemiQt,UrNegativeNormalNEGMercy [facility], HillcrestComment on above:Performed By: #### FRANK SOLOO #### [facility] [address] [place] [address] [employer] Physical [employer] Supervisor: Ijeoma Wooten UrineLARGEAbnormalNEGMerScripps Memorial HospitalComment on above:Performed By: #### GERMANIA, UMICAO #### [facility] [address] [place] [address] 16642 [employer] Security Supervisor: Allie Wootenrity (U)TurbidAbnormalCLEARMercy [facility], HillcrestComment on above:Performed By: #### GERMANIA, UMICAO #### [facility] [address] [place] [address] 26229 [employer] Supervisor: DANIELLE Wootenolor (U)YellowNormalYELMerScripps Memorial HospitalComment on above:Performed By: #### GERMANIA, UMICAO #### [facility] [address] [place] [address] 97919 [employer] Physical Security Supervisor: Wilbert Wooten Ql (U)1+AbnormalNEGKindred Hospital LimaComment on above:Performed By: #### UA, UMICAO #### [facility] [address] [place] [address] 96066 [employer] Supervisor: Brandan Ugalde MDKetones Ql (U)SMALLAbnormalNEGKindred Hospital LimaComment on above:Performed By: #### UA, UMICAO #### [facility] [address] [place] [address] 14232 [employer] Security Supervisor: Brandan Ugalde MDLeukocyte esterase Test strip Ql (U)MODERATE AbnormalNEGKindred Hospital LimaComment on above:Performed By: #### UA, UMICAO #### [facility] [address] [place] [address] 96971 [employer] Physical Security Supervisor: Lianet Wootentrite,UrNegativeNormalNEGKindred Hospital LimaComment on above:Performed By: #### GERMANIA, UMICAO #### [facility] [address] [place] [address] 29941 [employer] Physical Security Supervisor: DENISA Wooten,Ur5.2Tkaomv1.0-8.0[facility] Hospital LimaComment on above:Performed By: #### UA, UMICAO #### [facility] [address] [place] [address] 96209 [employer] Physical Security Supervisor: Charmaine Wooten Ql (U)2+AbnormalNEGKindred Hospital LimaComment on above:Performed By: #### UA, UMICAO #### [facility] [address] [place] [address]229 [employer] Physical Security Supervisor: Clarisa Wooten. [place],Ur1.285Orplwv0.005-1.030[facility] Hospital LimaComment on above:Performed By: #### GERMANIA, UMICAO #### [facility] [address] [place] [address] 60945 [employer] Physical Security Supervisor: Brandan Madoff, MDUrobilinogen,UrNormalNormalNORMMerScripps Memorial HospitalComment on above:Performed By: #### PRATIBHA SOLO #### [facility] [address] [place] [address] 93837 [employer] Physical Security Supervisor: DANIELLE WootenommentNOT REPORTEDNormalMercy [facility], HillcrestComment on above:Performed By: #### PRATIBHA SOLO #### [facility] [address] [place] [address] 86518 [employer] Physical Security Supervisor: Brandan Ugalde MDUrinalysis,Microon 09-28-2021-----NormalKindred Hospital LimaComment on above:Performed By: #### PRATIBHA SOLO #### [facility] [address] [place] [address] 08629 [employer] Physical Security Supervisor: DANIELLE WootenastsFINE GRANULARNormal0-2MercMartin Luther Hospital Medical CenterComment on above:Result Comment: 5 TO 10Performed By: #### FRANK SOLOO #### [facility] [address] [place] [address] 35473 [employer] Physical Security Supervisor: Brandan Ugalde MDEpithelial cells LM Ql (Urine sed)5 TO 10Normal 0-5MerScripps Memorial HospitalComment on above:Performed By: #### FRANK SOLOO #### [facility] [address] [place] [address] 71224 [employer] Physical Security Supervisor: Brandan Ugalde MDUrine RBC's5 TO 76Btjjat7-6Kofiw [facility], HillcrestComment on above:Performed By: #### GERMANIA UMICAO #### [facility] [address] [place] [address] 80950 [employer] Physical Security Supervisor: Brandan Ugalde MDUrine WBC's5 TO 35Hufkgt1-2Kvppl [facility], HillcrestComment on above:Performed By: #### GERMANIA UMICAO #### [facility] [address] [place] [address] [place] [address] [employer] Physical Security Supervisor: Rand WootenastMODERATEAbnormalNONBerger HospitalComment on above:Performed By: #### GERMANIA, UMICAO #### [facility] [address] [place] [address] 11079 [employer] Physical Security Supervisor: Yudi Wootenrphouger sediment LM Ql (Urine sed)NOT REPORTED NormalNONEMeProvidence Holy Cross Medical CenterComment on above:Performed By: #### GERMANIA, UMICAO #### [facility] [address] [place] [address] 98157 [employer] Physical Security Supervisor: Brandan Ugalde MDBacteriaNOT REPORTEDNormalNONEMeProvidence Holy Cross Medical CenterComment on above:Performed By: #### GERMANIA UMICAO #### [facility] [address] [place] [address] 26175 [employer] Physical Security Supervisor: Kimmy Wooten LM Nom (Urine sed)NOT REPORTEDNormal NONEKindred Hospital LimaComment on above:Performed By: #### GERMANIA UMICAO #### [facility] [address] [place] [address] 84412 [employer] Physical Security Supervisor: Brandan Ugalde MDEpithelial, RenalNOT VXJCRSTWIsjkix4KorauKindred Hospital LimaComment on above:Performed By: #### GERMANIA UMICAO #### [facility] [address] [place] [address] 16356 [employer] Physical Security Supervisor: GAVIN Wootenucus StrandsNOT REPORTEDNormalNONEMeProvidence Holy Cross Medical CenterComment on above:Performed By: #### GERMANIA UMICAO #### [facility] [address] [place] [address] 13920 [employer] Physical Security Supervisor: Brandan Ugalde MDOther ObservationsNOT REPORTEDNormalNREQMerScripps Memorial HospitalComment on above:Performed By: #### GERMANIA UMICAO #### [address] [address] [employer] Physical Security Supervisor: Brandan Ugalde MDTrichomonasNOT REPORTEDNormalNONEMeProvidence Holy Cross Medical CenterComment on above:Performed By: #### PRATIBHA SOLO #### [address] [address] [employer] Physical Security Supervisor: Brandan Ugalde MDVenous Blood Gaseson 06-91-2872Fgnq Temp.37.0 NormalKindred Hospital LimaComment on above:Performed By: #### VBG #### [address] [address] [employer] Physical Security Supervisor: Kenji Wooten Hgb2.2 %Normal0-5Kindred Hospital LimaComment on above:Result Comment: Reference Range: Non-Smokers 0-2% Average Smoker 2-4% Heavy Smoker <10%Performed By: #### VBG #### [address] [address] [employer] Physical Security Supervisor: Brandan Ugalde MDRKUQZ6HRAGCWXQcytprVogifKindred Hospital LimaComment on above:Performed By: #### VBG #### [address] [address] [employer] Physical Security Supervisor: Brandan Ugalde MDHCO3 (Bld) [Moles/Vol]17.3 mmol/ADug84-67TwihkKindred Hospital LimaComment on above:Performed By: #### VBG #### [address] [address] [employer] Physical Security Supervisor: Brandan Ugalde MDNegative Base Excess8.2 mmol/LHigh0.0-2.0[facility] Hospital LimaComment on above:Performed By: #### VBG #### [address] [address] [employer] Physical Security Supervisor: Brandan Ugalde MDOxygen (Bld) [Partial pressure]34.0 mm[Hg]Normal 30-50Kindred Hospital LimaComment on above:Performed By: #### VBG #### [facility] [address] [place] [address]134 [employer] Physical Security Supervisor: Brandan Ugalde MDOxygen saturation in Blood80.7 %Gpodmh33.0-85.0 [facility] Hospital LimaComment on above:Performed By: #### VBG #### [address] [address] [employer] Physical Security Supervisor: Brandan Ugalde VErMZ843.9Lln53-00IaiucKindred Hospital Lima Comment on above:Performed By: #### VBG #### [address] [address] [employer] Physical Security Supervisor: Brandan Ugalde [facility] (Bld)7.290 [pH]Low7.320-7.420Kindred Hospital LimaComment on above:Performed By: #### VBG #### [address] [address] [employer] Physical Security Supervisor: Miguel Wooten TestNOT REPORTEDSelect Medical [facility] Rehabilitation Hospital, Edwin ShawComment on above:Performed By: #### VBG #### [address] [address] Corporate Physical Security Supervisor: GAVIN WootenethemoglobinNOT REPORTEDNormal0.0-1.5[facility] Hospital LimaComment on above:Performed By: #### VBG #### [address] [address] Corporate Physical Security Supervisor: GAVIN WootenodeNOT REPORTEDNormalKindred Hospital LimaComment on above:Performed By: #### VBG #### [facility] [address] [place] [address] [employer] Physical Security Supervisor: Ary Wootenification TimeNOT REPORTEDrmalKindred Hospital LimaComment on above:Performed By: #### VBG #### [facility] [address] [place] [address]645 [employer] Physical Security Supervisor: Brandan Ugalde MDNotification:NOT REPORTEDNormalKindred Hospital LimaComment on above:Performed By: #### VBG #### [facility] [address] [place] [address] [employer] Physical Security Supervisor: Brandan Ugalde MDO2 Device/Flow/%NOT REPORTEDNormalKindred Hospital LimaComment on above:Performed By: #### VBG #### [facility] [address] [place] [address]29 [employer] Physical Security Supervisor: Brandan Ugalde MDOxyhemoglobinNOT SXXLGGFVSyadqd81.0-98.0[facility] Hospital LimaComment on above:Performed By: #### VBG #### [address] [address] [employer] Physical Security Supervisor: DANIEL Wootenco2 Adj'd for Temp.NOT JUUODWVFIqjplw56-46OdnvjKindred Hospital LimaComment on above:Performed By: #### VBG #### [facility] [address] [place] [address]368 [employer] Physical Security Supervisor: DANIEL WootenEEP/CPAPNOT REPORTEDNormalKindred Hospital LimaComment on above:Performed By: #### VBG #### [facility] [address] [place] [address]52 [employer] Physical Security Supervisor: Daniel Wooten Adjst'd for Temp.NOT REPORTEDNormal 7.320-7.420[facility] Hospital LimaComment on above:Performed By: #### VBG #### [facility] [address] [place] [address] 24551 [employer] Physical Security Supervisor: Daniel WootenO2 Adj'd for Temp.NOT NLUFWMNZUznbws23-67FinqyScripps Memorial HospitalComment on above:Performed By: #### VBG #### [facility] [address] [place] [address]23 [employer] Physical Security Supervisor: Caren Wooten Base ExcessNOT REPORTEDNormal0.0-2.0 [facility] Hospital LimaComment on above:Performed By: #### VBG #### [facility] [address] [place] [address] Corporate Physical Security Supervisor: DANIEL WootenSVNOT REPORTEDNormalMerScripps Memorial HospitalComment on above:Performed By: #### VBG #### [address] [address] Corporate Physical Security Supervisor: MDPt. Sugar PositionNOT REPORTEDNormalMerScripps Memorial HospitalComment on above:Performed By: #### VBG #### [address] [address] Corporate Physical Security Supervisor: Bakari Wooten RateNOT REPORTEDNormalKindred Hospital LimaComment on above:Performed By: #### VBG #### [address] [address] Corporate Physical Security Supervisor: Stanislaw Wooten RateNOT REPORTEDNormalKindred Hospital LimaComment on above:Performed By: #### VBG #### [address] [address] Corporate Physical Security Supervisor: Lindsey Wooten DrawnNOT REPORTEDNormalKindred Hospital LimaComment on above:Performed By: #### VBG #### [address] [address] Corporate Physical Security Supervisor: Donald Wooten for RespiratoryNOT REPORTEDNormalKindred Hospital LimaComment on above:Performed By: #### VBG #### [facility] [address] [place] [address] [place] [address] [employer] Physical Security Supervisor: Constantine Wooten HbNOT AUSJPRHJFfpwxa94.0-16.0[facility] Hospital LimaComment on above:Performed By: #### VBG #### [facility] [address] [place] [address] Corporate Physical Security Supervisor: Constantine Wooten RateNOT REPORTEDNormalKindred Hospital LimaComment on above:Performed By: #### VBG #### [facility] [address] [place] [address]20 [employer] Physical Security Supervisor: Brandan Ugalde MDVTNOT [facility] CENTERNoWadsworth-Rittman HospitalComment on above:Performed By: #### VBG #### [employer] [address] [place] [address] 07776 Corporate Physical Security Supervisor: KELLIE Wooten CHEST PORTABLEon 95-47-4248VL CHEST PORTABLE EXAMINATION: ONE XRAY VIEW OF [...] Signed by: Perla Sommer MD 09/28/21 Final resultNormalKindred Hospital LimaBilateral scattered pulmonary opacities consistent with multifocal airspace [...] with multifocal airspace disease/pneumonia. No extrapleural air. [employer] Phone: radiology Study observation (narrative)[employer] Phone: XR CHEST PORTABLEOrdered By: Perla Sommer on 09-28-2021 [employer] Phone: ANKLE LEFT MIN 3 VIEWS Mon 91-05-3396AOZHJ LEFT MIN 3 VIEWS MPatient Name: CARISSA [...] any questions or concerns, please contact the [facility] radiology department. Electronically Signed By: Mt Ho MD On: 05/23/2021 1:42 [facility] HospitalConsent for Treatmenton 47-64-2894Bjzeiva for Treatment [id number]#1.00CD:127NormalJono [facility] Clinical Summaryon 19-14-6934CK Clinical Summary [place] [id number] ED Clinical Summary Person Information Name: [facility]IS[facility] Age[facility] 40 Years : 1980 Sex: Female Language: Kosovan PCP: DIAZ DALTON MD Marital Status: Visit [...] 02/06/2021 02:47:40 02/06/2021 02:47:40 ADDRESS: [address] [place] [id number] [phone] PHYS DOC NOTES: MEDICAL INFORMATION: Prescriptions Given: PATIENT EDUCATION INFORMATION: Instructions: Follow up: DIAGNOSIS:NormalFisher Ata Medical CenterED Patient Education Noteon 54-73-8808YC Patient Education NoteNormalJacober Scott Medical CenterED Patient Summaryon 71-39-4147MC Patient Summary [place] [id number] Patient Discharge Instructions Person Information Name: CARISSA SANTOS Age: 40 Years Arrival Date: 02/05/2021 22:28:14 Discharge Diagnosis: Primary Care Physician: DIAZ DALTON MD Provider Information Primary Provider: Loco Marcos MD Advanced Installer Soft Top:None The exam and treatment you received in the Emergency Department were for an urgent problem and are not intended as complete care. It is important that you follow up with a doctor, nurse practitioner,or physician?s real estate assistant for ongoing care. If your symptoms [...] opioids can be used to help relieve rakozkfm-xa-khdevv pain and are often prescribed following a [...] your community drug take- back program or [employer] mail-back program, or flush them down the toilet, following guidance from the Food and Drug Administration (www.fda.gov/Drugs/ResourcesForYou). ? Visit www.cdc.gov/drugoverdose to learn about the risks of opioids abuse and overdose. ? If you believe you may be struggling with addiction, tell your health critical care unit nurse and ask for guidance or call [facility]ENTERA?S National Helpline at 6-154-369-MDQV. f Source: [place] Department of Health and Human Services/Center for Disease Control & Prevention [facility] Medications Given: Medication Dose Route No medications found. Medication Inf (more content not included)...[facility] CHEST AND LATERALon 74-83-3811XQESX AND LATERALThe [facility] Department of Radiology [address] [place] [phone] Patient Name: CARISSA SANTOS : 1980 [...] spine. Electronically signed: Shama Calvin. Transcribed by: [email or web address], User Resident: Electronically Signed by: SHAMA CALVIN @ 02/04/2021 02:25 [facility] Hospital - CantonComment on above:Order Comment: Erich LEFT 93-78-2984KFZJHLO [facility] Department of Radiology [address] [place] [phone] Patient Name: CARISSA SANTOS : 1980 Sex: F Age: Race: White Pt. Location: Patient Status: Ordered Date: 02/04/2021 8:55:00 AM Completed Date: 02/04/2021 09:20 AM Requesting Provider: ALIYA RUIZ Attending Provider: Report Copy To: Signs & Symptoms: R22.32 Localized swelling, mass and lump, left upper limb I10 History: [place] Comments: Evaluate Exam: HUMERUS LEFT HUMERUS LEFT CLINICAL INFORMATION: Patient complains of left shoulder and humerus pain and swelling for three years COMPARISON: None. IMPRESSION: 1. No fracture or other acute osseous abnormalities identified. No abnormal sclerosis. Electronically signed: Shama Calvin. Transcribed by: [email or web address], User Resident: Electronically Signed by: SHAMA CALVIN @ 02/04/2021 01:59 PMNSouthern Ohio Medical CenterComment on above:Order Comment: Evaluate SHOULDER LEFTon 22-24-9839HVMRSTZH [facility] Department of Radiology [address] [place] [phone] Patient Name: CARISSA SANTOS : 1980 [...] sclerosis. Electronically signed: Shama Calvin. Transcribed by: [email or web address], User Resident: Electronically Signed by: SHAMA CALVIN @ 02/04/2021 01:58 PMNSouthern Ohio Medical CenterComment on above:Order Comment: Evaluate Vital Signs Date TimeVital SignValuePerforming MjuzssthfNfpaatjs21-22-0093 09:21-0500Body lgbyzb540.9 cmKelsi Mici PA-C Work Phone: [facility] [employer] Jaxjfb74-63-7730 09:21-0500Body mass index (BMI) [Ratio]42.32 kg/c9Rjigk Mici PA-C Work Phone: [facility]11-03-2025 09:21-0500Body feprvu620.61 kgKelsi Mici PA-C Work Phone: [facility]11-03-2025 09:21-0500Diastolic blood wrciykbd10 mm[Hg]Chasidy Mici PA-C Work Phone: [facility]11-03-2025 09:21-0500Heart rate 92 /minKelsi Mici PA-C Work Phone: [facility]11-03-2025 09:21-0500Systolic blood ubgmrohn229 mm[Hg]Chasidy Mici PA-C Work Phone: [facility]10-09-2025 11:05-0400Diastolic blood cqgsmhjy00 mm[Hg]Diaz Dalton MD Work Phone: [facility]10-09-2025 11:05-0400 Heart rate78 /minDiaz Dalton MD Work Phone: [facility]10-09-2025 11:05-0400 Respiratory rate18 /minDiaz Dalton MD Work Phone: [facility]10-09-2025 11:05-0400 SaO2% (BldA) [Mass fraction]96 %Diaz Dalton MD Work Phone: [facility]10-09-2025 11:05-0400 Systolic blood vbonbwyo246 mm[Hg]Diaz Dalton MD Work Phone: [facility]10-09-2025 10:39-0400 Body yqnzhwpkplm43.2 [degF]Diaz Dalton MD Work Phone: [phone]10-09-2025 08:53-0400 Body .94 cmDiaz Dalton MD Work Phone: [phone] [place], [place] [address]10-09-2025 08:53-0400 Body auglrr44.44 kgDiaz Dalton MD Work Phone: [phone] [place] 8000210-02-2025 11:17-0400 Body beuqch002.94 cmDiaz Dalton MD Work Phone: 1(400)[address] [place], [place] 8000210-02-2025 11:17-0400 Body mass index (BMI) [Ratio]40.8 kg/m2Diaz Dalton MD Work Phone: 1(937)[address] [place], [place] 8000210-02-2025 11:17-0400 Body kdqcxrqdqwo20.1 [degF]Diaz Dalton MD Work Phone: 1(792)[address] [place], [place] 8000210-02-2025 11:17-0400 Body vaphzh91.97 kgDiaz Dalton MD Work Phone: 1(665)[address] [place], [place] 8000210-02-2025 11:17-0400 Diastolic blood qhknjvaw81 mm[Hg]Diaz Dalton MD Work Phone: 1(914)[address] [place], [place] 8000210-02-2025 11:17-0400 Heart rate96 /minDiaz Dalton MD Work Phone: 1(588)[address] [place], [place] 8000210-02-2025 11:17-0400 Respiratory rate20 /minDiaz Dalton MD Work Phone: 1(434)[address] [place], [place] 8000210-02-2025 11:17-0400 SaO2% (BldA) [Mass fraction]96 %Diaz Dalton MD Work Phone: 1(561)[address] [place], [place] 8000210-02-2025 11:17-0400 Systolic blood qjtcsikc352 mm[Hg]Diaz Dalton MD Work Phone: [facility]09-30-2025 13:24-0400 Body qsfyff731.9 cmMattyuridia Medina PA Work Phone: [facility] HospitalMnbhdmzemw80-35-4519 13:24-0400Body mass index (BMI) [Ratio]38.92 kg/o3Tbobuxe Medina PA Work Phone: [facility] HospitalApatapkvsp97-49-5877 13:24-0400Body ixyapo06.44 kgMattyuridia Medina PA Work Phone: [facility] HospitalQavlmqzqxt89-19-1126 13:26-0400Body pcraon734.9 cmCorey Demar DO Work Phone: [facility] HospitalVucuuraehh97-96-6579 13:26-0400Body mass index (BMI) [Ratio]41.57 kg/g0Civjb Demar DO Work Phone: [facility] HospitalGkggjfjygf10-17-9720 13:26-0400Body .79 kgCorey Demar DO Work Phone: [facility] HospitalAjancrzlkv80-51-7357 13:26-0400Diastolic blood wslpbopg71 mm[Hg]Feliz Demar DO Work Phone: [facility] HospitalRrhhfaptdk46-59-3499 13:26-0400Systolic blood wynledru235 mm[Hg]Feliz Demar DO Work Phone: [facility] HospitalWqrvwibbor21-49-1810 10:48-0400Diastolic blood lecbjsiv00 mm[Hg]Diaz Dalton MD Work Phone: [facility]09-11-2025 10:48-0400 Heart rate71 /minDiaz Dalton MD Work Phone: [facility]09-11-2025 10:48-0400 Respiratory rate16 /minDiaz Dalton MD Work Phone: [facility]09-11-2025 10:48-0400 SaO2% (BldA) [Mass fraction]100 %Diaz Dalton MD Work Phone: [facility]09-11-2025 10:48-0400 Systolic blood tqzecone193 mm[Hg]Diaz Dalton MD Work Phone: [facility]09-11-2025 09:08-0400 Body xiyvgm226.94 cmDiaz Dalton MD Work Phone: [phone] [place], [place] 6763909-11-2025 09:08-0400 Body mvufgodwixo80.5 [degF]Diaz Dalton MD Work Phone: 1([phone] [place], [place] 6763909-11-2025 09:08-0400 Body alkemz16.5 kgDiaz Dalton MD Work Phone: 1([phone] [place], [place] 6763909-10-2025 11:54-0400 Body orchov359.9 cmStaciniurka Quiñonesgel POT OPERATOR-OPERATING SYSTEMS SPECIALIST Work Phone: [facility]09-10-2025 11:54-0400Body mass index (BMI) [Ratio]40.83 kg/h1Hufjej Kregel POT OPERATOR-OPERATING SYSTEMS SPECIALIST Work Phone: [facility]09-10-2025 11:54-0400Body npcosl12.02 kgStsilvia Kregel POT OPERATOR-OPERATING SYSTEMS SPECIALIST Work Phone: [facility]09-10-2025 11:54-0400Diastolic blood vygosanp91 mm[Hg]Pachecoharriett Quiñonesgel POT OPERATOR-OPERATING SYSTEMS SPECIALIST Work Phone: [facility]09-10-2025 11:54-0400Heart rate 77 /minStaharriett Kregel POT OPERATOR-OPERATING SYSTEMS SPECIALIST Work Phone: [facility]09-10-2025 11:54-7286XiI5% (BldA) [Mass fraction]100 %Pachecoharriett Quiñonesgel POT OPERATOR-OPERATING SYSTEMS SPECIALIST Work Phone: [facility] HospitalComment on above:Arrived on 3Lnc of K109-81-2929 11:54-0400Systolic blood ptijhjgp145 mm[Hg]Pacheco Madrigal POT OPERATOR-OPERATING SYSTEMS SPECIALIST Work Phone: [facility]08-11-2025 13:38-0400Body mass index (BMI) [Ratio]39.07 kg/z8Rvgpb Demar DO Work Phone: [facility] HospitalQceqxeuyzw87-20-0704 13:38-0400Body .78 kgCorey Demar DO Work Phone: [facility] HospitalTsdlksmfdc87-86-3320 13:38-0400Diastolic blood rozxdmra94 mm[Hg]Feilz Demar DO Work Phone: [facility] HospitalGieslzqayq69-29-7702 13:38-0400Systolic blood dvzghynf170 mm[Hg]Feliz Demar DO Work Phone: [facility] HospitalZdohalpads50-90-8326 13:48-0400Body mass index (BMI) [Ratio]40.25 kg/z1Pkfdb Demar DO Work Phone: 1(685)557-[address] [place], [place] [address]Nkfohwfwsn64-51-8947 13:48-0400Body kaejgm78.62 kgCorey Demar DO Work Phone: [facility] HospitalBenpkehxaz96-07-7149 13:48-0400Diastolic blood mm[Hg]Feliz Demar DO Work Phone: [facility] HospitalAfhjugvkju49-67-4179 13:48-0400Systolic blood zmbavdtv546 mm[Hg]Feliz Demar DO Work Phone: [facility] HospitalCahiooffqu07-15-1777 09:01-0400Body pzacmm577.9 cmScharles Arrieta DO Work Phone: [facility]07-10-2025 09:01-0400Body mass index (BMI) [Ratio]40.43 kg/x3Xgtmal Meenakshi DO Work Phone: [facility]07-10-2025 09:01-0400Body pibdfb94.07 kgShsade Montalvoton DO Work Phone: [facility]07-10-2025 09:01-0400Diastolic blood mm[Hg]Lindsay Arrieta DO Work Phone: [facility]07-10-2025 09:01-0400Heart rate 81 /minScharles Arrieta DO Work Phone: [facility]07-10-2025 09:01-8508GoS8% (BldA) [Mass fraction]100 %Lindsay Arrieta DO Work Phone: [facility] SystemComment on above:3 liters 03-13-2025 09:01-0400Systolic blood sinadrsk369 mm[Hg]Lindsay Arrieta DO Work Phone: [facility]06-09-2025 13:23-0400Body .9 cmDiaz Dalton MD Work Phone: [facility] HospitalJzwamydjwy79-08-0703 13:23-0400Body mass index (BMI) [Ratio]40.25 kg/m2Diaz Dalton MD Work Phone: [facility] HospitalCdnmprhnhk87-79-6534 13:23-0400Body temperature 97.3 [degF]Diaz Dalton MD Work Phone: [facility] HospitalObjwekclwq06-43-2221 13:23-0400Body nzocbk04.62 kgDiaz Dalton MD Work Phone: [facility] HospitalWhniavcysr75-14-2148 13:23-0400Diastolic blood ebhwbsje23 mm[Hg]Diaz Dalton MD Work Phone: [facility] HospitalZkqwiajfxx51-72-0459 13:23-0400Heart rate85 /min Diaz Dalton MD Work Phone: [facility] HospitalZppmqkpcwn85-78-7260 13:23-0400Respiratory rate20 /minDiaz Dalton MD Work Phone: [facility] HospitalFqagesxzvx14-14-6941 13:23-6683JvX6% (BldA) [Mass fraction]98 %Diaz Dalton MD Work Phone: [facility] HospitalTtdnfporrf14-86-0421 13:23-0400Systolic blood zcydrbrf662 mm[Hg]Diaz Dalton MD Work Phone: [facility] HospitalCdgfvhucys29-36-9076 08:08-0400Body cttuwk955.9 Clare Recio MD Work Phone: [facility]05-02-2025 08:08-0400Body mass index (BMI) [Ratio]41.38 kg/i1CoxgnKatelyn Recio MD Work Phone: [facility]05-02-2025 08:08-0400Body fojgxe58.34 kgKatelyn Recio MD Work Phone: [facility]05-02-2025 08:08-0400Diastolic blood msfvcoxg09 mm[Hg]Katelyn Recio MD Work Phone: [facility]05-02-2025 08:08-0400Heart rate 76 /minKatelyn Recio MD Work Phone: 1(004)350-[address] [place], [place] 0385005-02-2025 08:08-8350JwR8% (BldA) [Mass fraction]100 %Katelyn Recio MD Work Phone: [facility]05-02-2025 08:08-0400Systolic blood vvflwitb377 mm[Hg]Katelyn Recio MD Work Phone: [facility]04-02-2025 13:04-0400Body rdifup394.9 cmStaharriett Madrigal APRN-OPERATING SYSTEMS SPECIALIST Work Phone: [facility]04-02-2025 13:04-0400Body mass index (BMI) [Ratio]40 kg/c6IligzoPacheco Madrigal APRN-OPERATING SYSTEMS SPECIALIST Work Phone: [facility]04-02-2025 13:04-0400Body .03 kgStsilvia Madrigal APRN-OPERATING SYSTEMS SPECIALIST Work Phone: [facility]04-02-2025 13:04-0400Diastolic blood aygapybe21 mm[Hg]Pacheco Madrigal POT OPERATOR-OPERATING SYSTEMS SPECIALIST Work Phone: [facility]04-02-2025 13:04-0400Heart rate 87 /minStaciniurka Madrigal POT OPERATOR-OPERATING SYSTEMS SPECIALIST Work Phone: [facility]04-02-2025 13:04-8679JfF1% (BldA) [Mass fraction]98 %Pacheco Madrigal POT OPERATOR-OPERATING SYSTEMS SPECIALIST Work Phone: [facility] HospitalComment on above:Arrived on 3Lnc of X892-77-9976 13:04-0400Systolic blood qlorofmw92 mm[Hg]Pacheco Madrigal POT OPERATOR-OPERATING SYSTEMS SPECIALIST Work Phone: [facility]03-06-2025 09:57-0500Body mass index (BMI) [Ratio]41.57 kg/m2Diaz Dalton MD Work Phone: [facility] HospitalGbfzfqyrws35-66-5141 09:57-0500Body temperature 97.7 [degF]Diaz Dalton MD Work Phone: [facility] HospitalGrivmrhcnc17-30-6017 09:57-0500Body oereii49.79 kgDiaz Dalton MD Work Phone: [facility] HospitalJsfrittluz91-79-0545 09:57-0500Diastolic blood kkyvqsqn53 mm[Hg]Diaz Dalton MD Work Phone: [facility] HospitalRfuxezydoq80-41-7479 09:57-0500Heart rate85 /min Diaz Dalton MD Work Phone: [facility] CenterKbcdmrccvc76-85-7525 09:57-0369DkS0% (BldA) [Mass fraction]95 %Diaz Dalton MD Work Phone: [facility] HospitalHbdjzuaeqh90-17-0351 09:57-0500Systolic blood eewpzgiy116 mm[Hg]Diaz Dalton MD Work Phone: [facility]Ex[facility] CenterGrowwjrtmt69-53-2964 14:08-0500Body mass index (BMI) [Ratio]41 kg/m2Diaz Dalton MD Work Phone: [facility] HospitalJzetnecxew20-26-4523 14:08-0500Body temperature 97.81 [degF]Diaz Dalton MD Work Phone: [facility] HospitalYloprshdnq08-89-1483 14:08-0500Body .43 kgDiaz Dalton MD Work Phone: [facility] HospitalNqhaskogvw23-36-2731 14:08-0500Diastolic blood ydoowdzi90 mm[Hg]Diaz Dalton MD Work Phone: [facility] HospitalLklavwbcii32-77-7710 14:08-0500Heart rate96 /min Diaz Dalton MD Work Phone: [facility] HospitalGxpruypwnl22-69-2944 14:08-6915XeR2% (BldA) [Mass fraction]96 %Diaz Dalton MD Work Phone: [facility] HospitalImbfghwdpy50-30-1939 14:08-0500Systolic blood xqdolmvr315 mm[Hg]Diaz Dalton MD Work Phone: [facility] HospitalYgutpokkhu72-08-5633 13:23-0500Body hknucy209.9 cmAmagdalenahotee Rusher DPM Work Phone: [facility] HospitalVmwahzgonq69-50-6309 13:23-0500Body mass index (BMI) [Ratio]42.89 kg/m3Fjgkjps Rusher DPM Work Phone: [facility] HospitalHyhjyivzdw95-87-6980 13:23-0500Body lrjump747.97 kgAnthony Rusher DPM Work Phone: [facility] HospitalXnpttvzbpl37-68-7602 07:57-0500Body .9 Clare Recio MD Work Phone: [facility]02-03-2025 07:57-0500Body mass index (BMI) [Ratio]41.76 kg/x9XgpvuKatelyn Recio MD Work Phone: [facility]02-03-2025 07:57-0500Body rupuku473.25 kgLaura Debenedetti MD Work Phone: [facility]02-03-2025 07:57-0500Diastolic blood sdyxpwjh55 mm[Hg]Katelyn Recio MD Work Phone: [facility]02-03-2025 07:57-0500Heart rate 97 /minKatelyn Recio MD Work Phone: [facility]02-03-2025 07:57-9700XwY6% (BldA) [Mass fraction]97 %Katelyn Recio MD Work Phone: [facility]02-03-2025 07:57-0500Systolic blood ksgemvmf453 mm[Hg]Katelyn Recio MD Work Phone: [facility]01-02-2025 11:26-0500Body etfhvt877.[address]01-02-2025 11:26-0500Body mass index (BMI) [Ratio]41.38 kg/m2Pmh [address] [place], [place] 4699801-02-2025 11:26-0500Body gsigir81.[address] [place], [place] 4699812-03-2024 20:01-0500Body gsrmgo165.[address]12-03-2024 20:01-0500Body mass index (BMI) [Ratio] 44.97 kg/m2Pmh [address] [place], [place] 8470112-03-2024 20:01-0500Body fsbfme546.96 kg Pmh [address] [place], [place] 8470112-03-2024 11:33-0500Body .9 cmDiaz Dalton MD Work Phone: [facility] HospitalErlriajulm41-37-4711 11:33-0500Body mass index (BMI) [Ratio]42.89 kg/m2Diaz Dalton MD Work Phone: [facility] HospitalLtpsxsdsmv77-66-2173 11:33-0500Body temperature 97.11 [degF]Diaz Dalton MD Work Phone: [facility] HospitalQygzfrdnfc47-78-1894 11:33-0500Body xfkdej063.97 kgDiaz Dalton MD Work Phone: [facility] HospitalWaqpdpvfzz30-09-4983 11:33-0500Diastolic blood pgzbejfz82 mm[Hg]Diaz Dalton MD Work Phone: [facility] HospitalIouvdjfjpd99-04-9066 11:33-0500Heart xgyq406 /min Diaz Dalton MD Work Phone: [facility] HospitalMefvtnkilj99-94-0509 11:33-0500Respiratory rate22 /minDiaz Dalton MD Work Phone: [facility] HospitalAsdwyhjllz04-81-2824 11:33-8645QhU4% (BldA) [Mass fraction]98 %Diaz Dalton MD Work Phone: [facility] HospitalUcnwkgolkx92-90-8329 11:33-0500Systolic blood xfedtear003 mm[Hg]Diaz Dalton MD Work Phone: [facility] HospitalIsxpggdlpx10-14-1103 11:06-0500Body erluju354.9 Praneeth See MD Work Phone: 1(323)[address]11-14-2024 11:06-0500Body mass index (BMI) [Ratio]44.18 kg/q0EzmezgHair See MD Work Phone: 1(596)609-[address] [place], [place] 0385011-14-2024 11:06-0500Body fheoel900.05 kgHair See MD Work Phone: 1(329)[address]11-14-2024 11:06-0500Diastolic blood yujkuakr75 mm[Hg]Hair See MD Work Phone: 1(452)158-[address] [place], [place] 0385011-14-2024 11:06-0500Heart rate 90 /minHair See MD Work Phone: 1(343)111-[address] [place], [place] 0385011-14-2024 11:06-2366ByF1% (BldA) [Mass fraction]99 %Hair See MD Work Phone: 1(733)091-[address] [place], [place] 0385011-14-2024 11:06-0500Systolic blood dddtykzg553 mm[Hg]Hair See MD Work Phone: [facility]10-31-2024 09:10-0400Diastolic blood dozslfoc67 mm[Hg][facility]10-31-2024 09:10-0400 Heart rate90 /minUniversity [facility]als [facility]10-31-2024 09:10-0400Systolic blood tspcoctr732 mm[Hg][facility]10-10-2024 12:59-0400 Body qbvffe657.9 cmScharles Arrieta DO Work Phone: [facility]10-10-2024 12:59-0400Body mass index (BMI) [Ratio]43.42 kg/i2EkmmemLindsay Arrieta DO Work Phone: [facility]10-10-2024 12:59-0400Body ezzazk306.24 kgLindsay Arrieta DO Work Phone: [facility]10-10-2024 12:59-0400Diastolic blood mm[Hg]Lindsay Arrieta DO Work Phone: [facility]10-10-2024 12:59-0400Heart rate 93 /minScharles Arrieta DO Work Phone: [facility]10-10-2024 12:59-2763LaN4% (BldA) [Mass fraction]100 %Lindsay Arrieta DO Work Phone: [facility] HospitalComment on above:Arrived on 3Lnc of G442-53-4959 12:59-0400Systolic blood kvufhzeb165 mm[Hg]Lindsay Arrieta DO Work Phone: [facility]09-26-2024 14:16-0400Body gmeqma821.9 cmGary Miller DO Work Phone: [facility] HospitalFwphjpiwbw80-58-4117 14:16-0400Body mass index (BMI) [Ratio]41.38 kg/m4Mebfb Paul DO Work Phone: [facility] HospitalWmzghgdbwq21-15-8217 14:16-0400Body xhtiaz88.34 kgGary Miller DO Work Phone: [facility] HospitalEtubgaymwy84-93-4017 09:57-0400Body yiatkf971.9 cmDiaz Dalton MD Work Phone: [facility] HospitalXvdbvjvvze33-17-7836 09:57-0400Body mass index (BMI) [Ratio]41.38 kg/m2Diaz Dalton MD Work Phone: [facility] HospitalPdlrsduzgo88-34-9990 09:57-0400Body temperature 97.5 [degF]Diaz Dalton MD Work Phone: [facility] HospitalUvcdwipmzl20-83-2056 09:57-0400Body uqlwep51.34 kgDiaz Dalton MD Work Phone: [facility] HospitalWkqknvmtlp72-52-4122 09:57-0400Diastolic blood pvjaulvr93 mm[Hg]Diaz Dalton MD Work Phone: [facility] HospitalAosroarofv17-74-8113 09:57-0400Heart rate90 /min Diaz Dalton MD Work Phone: [facility] HospitalVyutniygir69-17-1596 09:57-0400Respiratory rate20 /minDiaz Dalton MD Work Phone: [facility] HospitalDlflxpwown58-45-4342 09:57-7961BdU0% (BldA) [Mass fraction]99 %Diaz Dalton MD Work Phone: [facility] HospitalFdjespnpxr12-60-9622 09:57-0400Systolic blood mm[Hg]Diaz Dalton MD Work Phone: [facility] HospitalSogxawbtuv13-13-1100 14:07-0400Body .9 cmDiaz Dalton MD Work Phone: [facility] HospitalSnuawxlxmi22-82-6829 14:07-0400Body mass index (BMI) [Ratio]42.32 kg/m2Diaz Dalton MD Work Phone: [facility] HospitalMpnxwmuulb44-09-6988 14:07-0400Body temperature 97.3 [degF]Diaz Dalton MD Work Phone: [facility] HospitalUtenngkruz36-92-2868 14:07-0400Body xztmke543.61 kgDiaz Dalton MD Work Phone: [facility] HospitalLoezmfbnvq24-44-7404 14:07-0400Diastolic blood rbdocdjy57 mm[Hg]Diaz Dalton MD Work Phone: [facility] HospitalQbteiyxewk32-38-2150 14:07-0400Heart briw580 /min Diaz Dalton MD Work Phone: [facility] HospitalVadgbslrne73-60-9022 14:07-0400Respiratory rate20 /minDiaz Dalton MD Work Phone: [facility] HospitalHqelpavyvb06-60-1301 14:07-4984PdF8% (BldA) [Mass fraction]98 %Diaz Dalton MD Work Phone: [facility] HospitalOvbfjmencc92-66-7091 14:07-0400Systolic blood jtvddvna413 mm[Hg]Diaz Dalton MD Work Phone: [facility] HospitalKzrrptccch72-38-5103 13:42-0400Body mass index (BMI) [Ratio]42.7 kg/n3Mlqmg Demar DO Work Phone: [facility] HospitalEcbtjdvngu98-17-1784 13:42-0400Body yiebkk938.51 kgCorey Demar DO Work Phone: [place] [address]Unaugnhyku67-32-9741 13:42-0400Diastolic blood ntmwtyfi36 mm[Hg]Feliz Demar DO Work Phone: [place] [address]Jpibqygyir12-99-7625 13:42-0400Systolic blood zblrahey913 mm[Hg]Feliz Demar DO Work Phone: [facility] HospitalFjdxoirexj36-32-9971 10:51-0400Body pytose975.9 Jacky Germain MD Work Phone: 1(753)122-15[facility]08-06-2024 10:51-0400Body mass index (BMI) [Ratio]43.58 kg/f0EesktSmitha Germain MD Work Phone: 1(608)627-13[facility]08-06-2024 10:51-0400Body sydamh384.55 kgSmitha Germain MD Work Phone: 1(200)874-86[facility]08-06-2024 10:51-0400Diastolic blood lpazdnhc70 mm[Hg]Smitha Geramin MD Work Phone: 1(878)189-98[facility]08-06-2024 10:51-0400Heart rate 90 /minSmitha Germain MD Work Phone: 1(352)369-61[facility]08-06-2024 10:51-5578OcL6% (BldA) [Mass fraction]100 %Smitha Germain MD Work Phone: 1(335)820-96[facility] HospitalComment on above:Arrived on [address] [place], [place] [address]R732-87-5202 10:51-0400Systolic blood czybprks508 mm[Hg]Smitha Germain MD Work Phone: 1(961)434-43[facility]06-06-2024 08:58-0400Body rjhvyq976.9 cmScharles Arrieta DO Work Phone: 1(564)147-[address] [place], [place] 9969206-06-2024 08:58-0400Body mass index (BMI) [Ratio]44.11 kg/m8Tiryhdsade Arrieta DO Work Phone: 1(042)164-[address] [place], [place] 9969206-06-2024 08:58-0400Body ebmyzb935.82 kgLindsay Arrieta DO Work Phone: 1(479)269-[address] [place], [place] 9969206-06-2024 08:58-0400Diastolic blood ozlnpyqc98 mm[Hg]Lindsay Meenakshi DO Work Phone: 1(000)356-[address] [place], [place] 9969206-06-2024 08:58-0400Heart rate 80 /minScharles Arrieta DO Work Phone: 1(656)922-17[facility]06-06-2024 08:58-8559YyD4% (BldA) [Mass fraction]98 %Lindsay Arrieta DO Work Phone: [facility]06-06-2024 08:58-0400Systolic blood qyfcramm486 mm[Hg]Lindsay Arrieta DO Work Phone: [facility]04-20-2024 11:37-0400Diastolic blood szwpweof22 mm[Hg]Ezequiel Graff MD Work Phone: [facility]04-20-2024 11:37-0400Heart rate 81 /minEzequiel Graff MD Work Phone: 1(421)548-29[facility]04-20-2024 11:37-0400 Respiratory rate16 /minEzequiel Graff MD Work Phone: [facility]04-20-2024 11:37-6994OiN3% (BldA) [Mass fraction]97 %Ezequiel Graff MD Work Phone: [facility]04-20-2024 11:37-0400Systolic blood yftsqlfm120 mm[Hg]Ezequiel Graff MD Work Phone: 1(064)[phone]04-20-2024 07:00-0400Body jfkntqwydyb76.9 [degF]Ezequiel Graff MD Work Phone: [facility]04-20-2024 05:05-0400Body mass index (BMI) [Ratio]42.65 kg/j5JcamyebEzequiel Graff MD Work Phone: 1(460)995-69[facility]04-20-2024 05:05-0400Body lafath815.33 kgEzequiel Graff MD Work Phone: 1(916)635-44[facility]04-17-2024 21:17-0400Body bsjsaq909.9 cmEzequiel Graff MD Work Phone: [facility]03-13-2024 09:05-0400Body .[address] [place], [place] 9545603-13-2024 09:05-0400Body mass index (BMI) [Ratio]41.38 kg/l9Fccbd[address]03-13-2024 09:05-0400Body .[address]03-08-2024 11:07-0500Body height 154.9 cmLibby Finley MD Work Phone: 1(915)285-58[facility]03-08-2024 11:07-0500Body mass index (BMI) [Ratio]43.27 kg/q5EnabljmaLibby Finley MD Work Phone: 1(898)452-88[facility]03-08-2024 11:07-0500Body .87 kgLibby Finley MD Work Phone: 1(320)145-76[facility]03-08-2024 11:07-0500Diastolic blood gsunzloi41 mm[Hg]Libby Finley MD Work Phone: 1(071)964-35[facility]03-08-2024 11:07-0500Heart rate 100 /minMomel Finley MD Work Phone: 1(449)472-87[facility]03-08-2024 11:07-0500Systolic blood tuoxlqiz395 mm[Hg]Libby Finley MD Work Phone: 1(584)850-46[facility]03-07-2024 08:55-0500Body mass index (BMI) [Ratio]43.27 kg/r1FsveibfRyan Mcneal MD Work Phone: [facility]03-07-2024 08:55-0500Body kkbbhtqfujb63.3 [degF]Ryan Mcneal MD Work Phone: 1(134)082-[address] [place], [place] 9934103-07-2024 08:55-0500Body xruwiq384.87 kgRyan Mcneal MD Work Phone: 1(770)954-[address] [place], [place] 9934103-07-2024 08:55-0500Diastolic blood drlujuty73 mm[Hg]Ryan Mcneal MD Work Phone: 1(715)309-[address] [place], [place] 9934103-07-2024 08:55-0500Heart rate 103 /minRyan Mcneal MD Work Phone: 1(329)392-3[facility]03-07-2024 08:55-0500 Respiratory rate18 /minRyan Mcneal MD Work Phone: 1(283)035-4[facility]03-07-2024 08:55-8472JyM3% (BldA) [Mass fraction]95 %Ryan Mcneal MD Work Phone: 1(902)506-1[facility]03-07-2024 08:55-0500Systolic blood msbqeurj341 mm[Hg]Ryan Mcneal MD Work Phone: [facility]01-30-2022 11:29-0500Body qbmfgstamyf93.5 [degF]Jamal Levine MD Work Phone: 1(352)[address] [place], [place] 8931401-30-2022 11:29-0500Diastolic blood phmmwyqo11 mm[Hg]Jamal Levine MD Work Phone: 1(886)[address] [place], [place] [address]6701-30-2022 11:29-0500Heart rate85 /min Jamal Levine MD Work Phone: 1(911)[facility] [place], [place] [address]01-30-2022 11:29-0500Respiratory rate16 /minJamal Levine MD Work Phone: 1(327)[facility] [place], [place] [address]01-30-2022 11:29-4346KcI0% (BldA) [Mass fraction]97 %Jamal Levine MD Work Phone: 1(310)[facility] [place], [place] [address]01-30-2022 11:29-0500Systolic blood mqsiocfu078 mm[Hg]Jamal Levine MD Work Phone: 1(588)[address] [place], [place] [address]6701-26-2022 06:00-0500Body mass index (BMI) [Ratio]43.59 kg/z6BbjrhJamal Levine MD Work Phone: 1(822)[facility] [place], [place] [address]01-26-2022 06:00-0500Body .24 kg Jamal Levine MD Work Phone: 1(853)[address] [place], [place] [address]01-25-2022 09:30-0500Body nebxce891.4 cm Jamal Levine MD Work Phone: [facility] Encounters Encounter DateEncounter [facility] ProviderFacilityStart: 07-07-2025 End: 65-45-5922Qpffmj outpatient visit 15 minutesAdriane Woods POT OPERATOR-OPERATING SYSTEMS SPECIALIST Work Phone: [facility] CardiologyComment on above:Pure hypercholesterolemia (Primary Dx); Chronic heart failure with preserved ejection fraction (CMS-HCC)Start: 07-07-2025 End: 50-23-5395jgwlhtakmrJSAZJ [facility] HOSPITALIPrUT [facility] Hospitaltart: 07-04-2025 End: 66-56-8098Osameokhm encounterBethanie Steele Physicians CardiologyStart: 06-12-2025 End: 27-79-6114Bbdzrrssn to same day surgery centerRandall Soria MD-[facility]Start: 06-12-2025 End: 12-90-1845heyfuoetjlBaho Naderer MD Work Phone: [facility] Work Phone: Start: 06-09-2025 End: 58-85-4360Ykqruozmm encounterPayadiel Patel Physicians CardiologyComment on above:Surgical Or Dental ClearanceStart: 06-05-2025 End: 11-17-1974Ktmhficne Result EncounterMattyuridia KAPLAN Work Phone: noms External Department UnsolicitedStart: 06-05-2025 End: 95-95-6682Xxmykxyay Result EncounterMattyuridia KAPLAN Work Phone: noms External Department UnsolicitedStart: 06-05-2025 End: 70-02-9726euviwegajeMoqn Naderer MD Work Phone: [facility] Work Phone: Start: 06-05-2025 End: 36-82-2177Egylrzq encounter Talita Dalton MD-[facility] [place] Work Phone: Start: 06-03-2025 End: 36-74-4472Gddujs flowsheetShama KAPLAN Work Phone: noms [place] OrthopaedicsStart: 06-03-2025 End: 54-47-5868Snmhnn flowsheetShama KAPLAN Work Phone: noms [place] OrthopaedicsStart: 06-03-2025 End: 32-65-2656Ojwezbn encounter procedureMajuancarlos KAPLAN Work Phone: NOND [place] OrthopaedicsComment on above:Pre-op examination (Primary Dx)Start: 06-03-2025 End: 81-20-3607Dmfvwjapdnwqd examination doneMajuancarlos KAPLAN Work Phone: [facility] Work Phone: Start: 06-03-2025 End: 22-70-1795lczuimznqoXPOZYNR J MEYERNot AvailableStart: 05-29-2025 End: 19-25-6153Afadjcqbv encounterJr. Harinder Jackson DO Work Phone: noms Chris OrthopaedicsComment on above:? surgery Start: 05-26-2025 End: 76-91-3788Bqcxsm outpatient visit 15 minutesCorey Demar DO Work Phone: noms [place] OBGYNComment on above:Pre-op examination; Pelvic pain; Genital warts; Pain of ovaryStart: 05-26-2025 End: 00-03-5146Fnobinhssrgfq examination doneCorey Demar DO Work Phone: noms HealthcareStart: 05-26-2025 End: 83-12-1518ktamnprujdVJXII FAZIONot AvailableStart: 05-15-2025 End: 10-55-2694Ydmniqpzc to same day surgery centerRandall Soria MD-Surgery Center [facility]Start: 05-15-2025 End: 65-88-1300biddalurziKxal Naderer MD Work Phone: [facility] Work Phone: Start: 05-14-2025 End: 36-74-1206Obasbgycc Ritesh Rod Physicians Pulmonary/Sleep MedicineStart: 05-14-2025 End: 29-66-7747Azdiqq outpatient visit 15 minutesStgeisinger wyoming valley medical centerniurka Madrigal POT OPERATOR-OPERATING SYSTEMS SPECIALIST Work Phone: [facility] Pulmonary/Sleep MedicineComment on above:Obstructive sleep apnea syndrome (Primary Dx); Dyspnea on exertion; Moderate persistent asthma without complication; Chronic hypoxic respiratory failure ([facility]-HCC); BMI 40.0-44.9, adult ([facility]); Obesity, morbid, BMI 40.0-49.9 ([facility])Start: 05-14-2025 End: 13-03-4040jpgerliciyQLSAXOGreenwood [facility] Ambulatory PPGStart: 05-07-2025 End: 31-04-1141Dcatwl-up encounterShania Lopez MD Work Phone: [facility] Pulmonary/Sleep MedicineComment on above:Home O2 evaluationStart: 96-38-2526btmfwokagxIHHKSelect Medical Specialty Hospital - Cantontart: 05-02-2025 End: 38-16-1120HpdisjOgyg Naderer MD Work Phone: noms CW FMComment on above:Type 2 diabetes mellitus with hyperglycemia, with long-term current use of insulin ([facility])Start: 05-01-2025 End: 25-91-2539Sufdkwyt Edgardo Soria MD-Pre-Surgical Testing Work Phone: Start: 05-01-2025 End: 96-06-4073Ldsnfpy encounter Kimberley Soria MD-Pre-Surgical Testing Work Phone: Start: 05-01-2025 End: 71-24-0615Rfdber OnlySilvia Rod Physicians Pulmonary/Sleep MedicineComment on above:Hypoxia (Primary Dx); Dyspnea on exertionStart: 04-24-2025 End: 29-02-1131Wxhafwgwo Result EncounterDiaz Dalton MD Work Phone: noms External Department UnsolicitedStart: 04-24-2025 End: 38-53-0459Ojcofjwiw Result EncounterDiaz Dalton MD Work Phone: noms External Department UnsolicitedStart: 04-23-2025 End: 94-81-2847Pznfacsqr encounterJr. Harinder Shane Jackson DO Work Phone: noms [place] OrthopaedicsComment on above:Medial aspect of her eye and noseStart: 04-22-2025 End: 25-37-9928Qohgsv flowsheetJr. Harinder Shane Jackson DO Work Phone: noms [place] OrthopaedicsStart: 04-22-2025 End: 73-45-3325Vhwukn flowsheetJr. Harinder Lynn Manuel DO Work Phone: noms [place] OrthopaedicsStart: 04-22-2025 End: 14-93-9431Axrjhb outpatient visit 25 minutesJr. Harinder Jackson DO Work Phone: noms [place] OrthopaedicsComment on above:Acute pain of left knee (Primary Dx); Acute medial meniscus tear of left knee, initial encounterStart: 04-22-2025 End: 18-18-8773uddjtrlkhiLD., HARINDER GARZAKRYSTYNANot AvailableStart: 04-14-2025 End: 96-84-0797Amwwvt flowsheetCorey Demar DO Work Phone: NOMS [place] OBGYNStart: 04-14-2025 End: 87-65-8558Tkqbiw flowsheetCorey Demar DO Work Phone: [facility] [place] OBGYNStart: 04-14-2025 End: 60-02-5437Egacar outpatient visit 15 minutesCorey Demar DO Work Phone: NOGL Benny OBGYNComment on above:Pelvic pain in female (Primary Dx); Nausea; Genital wartsStart: 04-14-2025 End: 09-50-1643vdpoelmjjcMPOXH FAZIONot AvailableStart: 04-10-2025 End: 86-62-6806gitgjcsvylFhuhamah Brink PTANOMS Zhen Physical TherapyComment on above:Acute pain of left knee (Primary Dx)Start: 04-10-2025 End: 62-06-4177Akejmg flowsheetMarshall Brink PTANOMS [facility] Start: 04-10-2025 End: 95-25-5019Srctck flowsheetMarshsage Kelly PTANOMS [facility] Start: 04-07-2025 End: 82-82-8922Cksbqhzoa encounterKenbenignobrock Herzog PTANOMS Zhen Physical TherapyComment on above:Cx PT 04/07/25Start: 04-02-2025 End: 14-65-8885Isizdw flowsheetMarshsage Kelly PTANOMS [facility] Start: 04-02-2025 End: 27-81-7074Vcakrd flowsheetMarshsage Kelly PTANOMS [facility] Start: 04-02-2025 End: 39-80-5021kgflvgeclmCwvhohgh Brink PTANOMS Zhen Physical TherapyComment on above:Acute pain of left knee (Primary Dx)Start: 03-28-2025 End: 60-14-8818Iicusejkb encounterNoébrock Herzog PTANOMS CI PTComment on above:re: PT so farStart: 03-27-2025 End: 08-01-2237Yipxvgvpg encounterShama KAPLAN Work Phone: NOQO [place] OrthopaedicsComment on above:called and said that therapy is making her pain worseStart: 03-26-2025 End: 95-49-3505Vpvtaa Omarbenignobrcok Herzog PTANOMS CI PTStart: 03-26-2025 End: 62-66-5128Mqnbil Omarbenignobrock Herzog PTANOMS CI PTStart: 03-26-2025 End: 90-71-9748xdzvjkrkjkWnurhxc Lawrence PTANOMS CI PTComment on above:Acute pain of left knee (Primary Dx)Start: 03-24-2025 End: 18-48-7131OfhkngIfsnmpjade Rod Physicians Pulmonary/Sleep MedicineStart: 03-21-2025 End: 26-99-3972Poaovz flowsheetSammantha Valadez PTNOMS CI PTStart: 03-21-2025 End: 45-59-3752Snfrbg flowsheetSammantha Valadez PTNOMS CI PTStart: 03-21-2025 End: 40-19-9934ybxqqqnnisWvskgiuws Valadez PTNOMS CI PTComment on above:Acute pain of left knee (Primary Dx)Start: 03-17-2025 End: 37-95-5805Jbdcwjo encounter procedureCorey Demar DO Work Phone: noms BCP OBComment on above:Genital wartsStart: 03-17-2025 End: 00-27-1883ovafhkgywiFQHPO FAZIONot AvailableStart: 03-14-2025 End: 64-06-9639Dvhjea flowsheetJr. Harinder Jackson DO Work Phone: NOMS ORTHOStart: 03-14-2025 End: 78-39-7561Llqgin flowsheetJr. Harinder Jackson DO Work Phone: NOMS ORTHOStart: 03-14-2025 End: 56-85-5442Dtytab outpatient visit 15 minutesJr. Harinder Jackson DO Work Phone: noms PCF ORTHOComment on above:Acute medial meniscus tear of left knee, initial encounter (Primary Dx); Acute pain of left kneeStart: 03-14-2025 End: 11-62-1335cqlzjfcgshVP., HARINDER Holliday AvailableStart: 03-13-2025 End: 87-26-4584Rwellpaji encounterSjade Rod Physicians Pulmonary/Sleep MedicineStart: 03-13-2025 End: 35-12-5092Hrkhpd outpatient visit 25 minutesLindsay Arrieta DO Work Phone: [facility] Pulmonary/Sleep MedicineComment on above:Moderate persistent asthma without complication (Primary Dx); Chronic hypoxic respiratory failure (CMS-HCC)Start: 03-13-2025 End: 33-54-3879pfbhmmyahcGGSQRO M [facility] Ambulatory PPGStart: 03-11-2025 End: 48-27-9597Hmzjecmne encounterProwalker baptist [facility] Pharm[facility] Medication Management Work Phone: [phone] Medication ManagementStart: 03-05-2025 End: 77-80-5395Qcdhslkae encounterJorge L LEGERroMedjose Physicians CardiologyComment on above:PPMM referralStart: 03-04-2025 End: 06-66-3554Gemasinka Result EncounterMajuancarlos KAPLAN Work Phone: noms External Department UnsolicitedStart: 03-04-2025 End: 61-38-0572Efvfacocc Result EncounterMajuancarlos KAPLAN Work Phone: noms External Department UnsolicitedStart: 02-27-2025 End: 89-99-5114Jfevmsdui encounterMajuancarlos KAPLAN Work Phone: noms FB ORTHOPAEDICSComment on above:in painStart: 02-25-2025 End: 28-36-5990Ycklhn outpatient visit 15 minutesMajuancarlos KAPLAN Work Phone: noms FB ORTHOPAEDICSComment on above:Internal derangement of left knee (Primary Dx); Acute pain of left kneeStart: 02-25-2025 End: 39-42-0114Vsdkvk flowsheetShama KAPLAN Work Phone: noms FB ORTHOPAEDICSStart: 02-25-2025 End: 26-57-8528Kifivd flowsYuridia KAPLAN Work Phone: noms FB ORTHOPAEDICSStart: 02-25-2025 End: 59-38-1323Mwagmhkss encounterSjade ArandaoMedjose Physicians Pulmonary/Sleep MedicineStart: 02-25-2025 End: 25-83-3613wnpeitjoqtZEYJOLM J MEYERNot AvailableStart: 02-17-2025 End: 56-28-5915Ppqbodgcv encounterSjade VEGAAProMedica Physicians Pulmonary/Sleep MedicineStart: 02-10-2025 End: 94-48-3310Ryqsaozane Dalton MD Work Phone: noms CWM FMStart: 02-10-2025 End: 59-54-8910Owufbmshun Dalton MD Work Phone: noms CWM FMStart: 02-10-2025 End: 11-30-5065mpedswrkggLOZT NADERERNot AvailableStart: 02-10-2025 End: 18-54-0310Gjervn outpatient visit 25 minutesDiaz Dalton MD Work [...] Primary osteoarthritis of both kneesStart: 02-03-2025 End: 69-05-0982hazosyjjtxCYXSKB M [facility] Hospitaltart: 01-03-2025 End: 18-75-2529Qfsuba outpatient visit 15 minutesKatelyn Recio MD Work Phone: [facility] CardiologyComment on above: Chronic heart failure with preserved ejection fraction (CMS-HCC) (Primary Dx); Primary hypertension; Dyspnea on exertion; Hyperlipidemia associated with type 2 diabetes mellitus (CMS-HCC)Start: 01-03-2025 End: 64-54-5896eejiszlpslXOACYApolinar RECIOMetroHealth Main Campus Medical Centertart: 01-02-2025 End: 52-85-6948Dimqgjeym encounterBethanie Nolascohner [facility]PITALProMedica Physicians CardiologyStart: 12-09-2024 End: 09-78-6576Ugdhpzvnx encounterSjade Otero RMAProMedica Physicians Pulmonary/Sleep MedicineStart: 12-04-2024 End: 53-52-0585Jfoual outpatient visit 25 minutesPacheco Guerra Kaitlin POT OPERATOR-OPERATING SYSTEMS SPECIALIST Work Phone: [facility] Pulmonary/Sleep MedicineComment on above:Obstructive sleep apnea syndrome (Primary Dx); Noncompliance with CPAP treatment; Chronic hypoxic respiratory failure, on home oxygen therapy ([facility]); Obesity, Class III, BMI 40-49.9 (morbid obesity) ([facility])Start: 12-04-2024 End: 33-85-0365bfasbjxpttAXMDUW Charlie QUIÑONESFirelands Regional Medical Center Ambulatory PPGStart: 11-07-2024 End: 04-09-5098Ucalix Froy Dalton MD Work Phone: noms CWM FMStart: 11-07-2024 End: 21-81-9854Hdndenzane Dalton MD Work Phone: noms CWM FMStart: 11-07-2024 End: 89-17-1676Hzuril outpatient visit 25 minutesDiaz Dalton MD Work Phone: noms CW FMComment on above:Type 2 diabetes mellitus with hyperglycemia, with long-term current use of insulin ([facility]) (Primary Dx); Chronic heart failure with preserved ejection fraction (HFpEF) ([facility]); Mild episode of recurrent major depressive disorder (HCC) ([facility]); JOHN (generalized anxiety disorder) ([facility]); Gastroesophageal reflux disease without esophagitis; Class 3 severe obesity due to excess calories with serious comorbidity and body mass index (BMI) of40.0 to 44.9 in adult ([facility])Start: 11-07-2024 End: 69-37-1533fjqkgjyfwvHXGQ NADERERNot AvailableStart: 11-01-2024 End: 33-26-8669Jsouajee Result EncounterDiaz Dalton MD Work Phone: NOMS External Department UnsolicitedStart: 11-01-2024 End: 60-21-5130Gtfbhbsh Result EncounterDiaz Dalton MD Work Phone: noms External Department UnsolicitedStart: 11-01-2024 End: 15-36-2806ywmacbosklEIOICleveland Clinic Medina Hospitaltart: 10-28-2024 End: 23-37-0966Vppjmc outpatient visit 25 minutesDiaz Dalton MD Work Phone: noms CWM FMComment on above:Dehydration (Primary Dx); Nausea and vomiting, unspecified vomiting type; Type 2 diabetes mellitus with hyperglycemia, with long-term current use of insulin ([facility]); Class 3 severe obesity due to excess calories with serious comorbidity and body mass index (BMI) of40.0 to 44.9 in adult ([facility]); Chronic hypoxic respiratory failure ([facility]); Chronic heart failure with preserved ejection fraction (HFpEF) ([facility])Start: 10-28-2024 End: 59-56-8426Yazpxe Froy Dalton MD Work Phone: noms CWM FMStart: 10-28-2024 End: 11-76-5104Ybsnsk Froy Dalton MD Work Phone: noms CWM FMStart: 10-28-2024 End: 92-91-6785ygpgorjfhxTBNM NADERERNot AvailableStart: 10-27-2024 End: 61-44-4350Xzawxinxt department patient visitCleveland Clinic Medina Hospitaltart: 10-09-2024 End: 22-44-8340Bhfeka flowsheetAnthony S Rusher DPM Work Phone: noms PODIATRYStart: 10-09-2024 End: 27-09-2263Govktl flowsheetAnthony S Rusher DPM Work Phone: noms PODIATRYStart: 10-09-2024 End: 47-56-5961ksukrafanaZMZCVWV S RUSHERNot AvailableStart: 10-09-2024 End: 97-63-4917Rfdmbd outpatient visit 25 minutesCarmen Bowman DPM Work Phone: noms PODIATRYComment on above:Diabetic polyneuropathy associated with type 2 diabetes mellitus ([facility]/HCC) (Primary Dx); NeuritisStart: 10-07-2024 End: 01-20-8382Jibgbh outpatient visit 25 minutesKatelyn Recio MD Work Phone: [facility] Physicians CardiologyComment on above: Dyspnea on exertion (Primary Dx); Chronic heart failure with preserved ejection fraction ([facility]); Type 2 diabetes mellitus with hyperglycemia, with long-term current use of insulin ([facility])Start: 10-07-2024 End: 84-32-1024zezxfswzwuIGQFB L DEBENEDETTIMetroHealth Main Campus Medical Centertart: 10-04-2024 End: 32-05-8217Mvqztkore encounterSue Chow [facility] Physicians Cardiology Start: 09-25-2024 End: 98-18-5492EqegcgPtur Naderer MD Work Phone: noms CWM FMComment on above:Type 2 diabetes mellitus with hyperglycemia, with long-term current use of insulin ([facility])Start: 09-23-2024 End: 84-25-8442GchslmOmnv Naderer MD Work Phone: noms CWM FMComment on above:Type 2 diabetes mellitus with microalbuminuria, with long-term current use of insulin ([facility])Start: 09-19-2024 End: 43-25-6929JkvmhbGidi Naderer MD Work Phone: noms CWM FMComment on above:Type 2 diabetes mellitus with microalbuminuria, with long-term current use of insulin ([facility])Start: 09-17-2024 End: 43-78-5664Gofmfafhh encounterAllyson Briscoe [facility] Physicians General SurgeryStart: 09-12-2024 End: 93-43-1849Bkveobfpvs and management of inpatientMANASSAS E ILLISProMedica Contra Costa Regional Medical Centertart: 09-05-2024 End: 71-38-4193wjewuygacgZml Pat Phone Call Provider [address] [place] [address] AdmitStart: 09-05-2024 End: 74-69-2601kmilkmuopuLIVZ TAISHAGuernsey Memorial Hospitaltart: 08-21-2024 End: 94-88-0286CaxfpmEilf Naderer MD Work Phone: noms CWM FMComment on above:Mild episode of recurrent major depressive disorder (HCC) (CMS/HCC)Start: 08-15-2024 End: 40-11-1235Svmmcq Vickie Dalton MD Work Phone: NOKI CWM FMComment on above:Carpal tunnel syndrome of left wristStart: 08-06-2024 End: 52-53-4604Gezmdn Froy Dalton MD Work Phone: NOYB CWM FMStart: 08-06-2024 End: 56-82-2730Vlpgry Froy Dalton MD Work Phone: NOZS CWM FMStart: 08-06-2024 End: 34-33-9496Uzqjqfkgp Result EncounterGeneric External Data ProviderNOMS External Department UnsolicitedStart: 08-06-2024 End: 23-19-0806Rbkiesl encounter procedureCorey Demar DO Work Phone: [facility] Work Phone: Start: 08-06-2024 End: 37-27-6762Jdsdbjjt preventive med est patient 40-64yrsCorey Demar DO Work Phone: NOYN BCP OBComment on above:Well woman exam with routine gynecological examStart: 08-06-2024 End: 29-77-0932Cdlayy outpatient visit 25 minutesDiaz Dalton MD Work Phone: NOMS CWM FMComment on above:Chronic hypoxic respiratory failure (CMS/HCC) (Primary Dx); Chronic heart failure with preserved ejection fraction (HFpEF) (CMS/HCC); Type 2 diabetes mellitus with hyperglycemia, with long-term current use of insulin (CMS/HCC); Pulmonary hypertension ([facility]); Colon cancer screening; Gastroesophageal reflux disease without esophagitisStart: 08-06-2024 End: 32-35-1069Zzkshonc SupportSmitha Germain MD Work Phone: [facility] - Sleep Disorders Comment on above:JOSE M (obstructive sleep apnea); Chronic hypoxic respiratory failure ([facility]); Severe obesity (BMI >= 40) ([facility])Start: 08-05-2024 End: 99-95-7327PktvsxScpc Naderer MD Work Phone: noms CWM FMComment on above:Type 2 diabetes mellitus with hyperglycemia, with long-term current use of insulin ([facility])Start: 07-30-2024 End: 34-27-6017Zzvwkpidx encounterShakira Gayle [facility] Call Center Comment on above:Abnormal LabCRITICAL LABStart: 07-30-2024 End: 71-49-3360camtxscdjbYttfyiqq Bialecki POT OPERATOR-OPERATING SYSTEMS SPECIALIST Work Phone: [facility] Receptionist Sign InStart: 07-29-2024 End: 64-35-7820SswuhtLyhc Naderer MD Work Phone: noms CWM FMComment on above:Type 2 diabetes mellitus with hyperglycemia, with long-term current use of insulin ([facility])Start: 07-21-2024 End: 04-91-4503vyqibsfszyAUVF NADERERProMedSt. Joseph Medical Center HospitalStart: 07-18-2024 End: 05-09-7019Fbcsui outpatient visit 25 minutesHair See MD Work Phone: [facility] Physicians CardiologyComment on above: Dyspnea on exertion (Primary Dx); Pulmonary hypertension ([facility])Start: 07-18-2024 End: 22-05-1462uspqjurjznQDXSBR E OOSTRAProMedica Munich HospitalStart: 07-17-2024 End: 89-76-9378Lwdsgvsnl encounterBethanie Patricia CMABrown Memorial Hospital Physicians CardiologyStart: 07-15-2024 End: 79-76-6429Nsodlg flowsElmira Snowden AGENCY CASHIER Work Phone: NOYN FB ORTHOPAEDICSStart: 07-15-2024 End: 15-51-7753Ljybug flowsElmira Snowden AGENCY CASHIER Work Phone: NOYD FB ORTHOPAEDICSStart: 07-15-2024 End: 79-17-3160Qnluqz follow up visit related to original Mac Snowden AGENCY CASHIER Work Phone: NOPZ FB ORTHOPAEDICSComment on above:Status post carpal tunnel release (Primary Dx)Start: 07-15-2024 End: 89-19-2597pprifsauhhXNFBX T OLSENNot AvailableStart: 07-10-2024 End: 37-27-3405Jncvmw Vickie Dalton MD Work Phone: NOSD CWM FMComment on above:Anxiety state (CMS/HCC) Start: 07-08-2024 End: 68-45-1489Ikjekq Vickie Dalton MD Work Phone: NOQH CWM FMComment on above:Anxiety state (CMS/HCC) Start: 07-04-2024 End: 97-69-9920Esmieppv SupportKeenan Private Hospital Ppc NurseProMedica Physicians Cardiology Comment on above:Pulmonary hypertension (CMS-HCC) (Primary Dx)Start: 07-03-2024 End: 11-17-3557Ozwwtonls encounterJenntejal Patricia CMAProMedica Physicians CardiologyStart: 06-30-2024 End: 32-82-0832Gblyoiagl Result EncounterCorey Demar DO Work Phone: NOWM External Department UnsolicitedStart: 06-30-2024 End: 46-85-5384Ehatgedab Result EncounterCorey Demar DO Work Phone: NOKH External Department UnsolicitedStart: 06-26-2024 End: 59-75-2268aduesnoiemOHAWXE HANNAProMedica Hanover HospitalStart: 06-24-2024 End: 75-30-2847Lojqbx Danna Snowden AGENCY CASHIER Work Phone: NOMS FB ORTHOPAEDICSStart: 06-24-2024 End: 86-48-2784Rlghsf flowsheetBarry Min Michelle AGENCY CASHIER Work Phone: NOGY FB ORTHOPAEDICSStart: 06-24-2024 End: 09-44-1574Srreru follow up visit related to original Mac Min Michelle AGENCY CASHIER Work Phone: noms FB ORTHOPAEDICSComment on above:Status post carpal tunnel release (Primary Dx)Start: 06-24-2024 End: 92-79-8129jsrxtkegyeRBDNH T OLSENNot AvailableStart: 06-20-2024 End: 42-49-1305Ucffpcmho encounterHalfawn Lovell RNProMedica Physicians Cardiology Comment on above:Cardiac CathStart: 06-19-2024 End: 28-48-3441Sxxrtkapw encounterBethanie Patricia CMAProMedica Physicians CardiologyStart: 06-18-2024 End: 94-88-1476Qxdbygvar encounterGary Miller DO Work Phone: noms FB ORTHOPAEDICSStart: 06-17-2024 End: 84-16-0513mutoalnjrqNczcy Andrew HuddlestonFacility:[facility] HospitalStart: 06-14-2024 End: 40-37-5722KuxjfpVpjke T Olsen AGENCY CASHIER Work Phone: noms FB ORTHOPAEDICSComment on above:Post-operative pain (Primary Dx)Start: 06-13-2024 End: 90-01-2162C[place] outpatient visit 25 [facility] DO Work Phone: [facility] Pulmonary/Sleep MedicineComment on above:Moderate persistent asthma without complication (Primary Dx); Obstructive sleep apnea syndrome; Pulmonary nodule; Chronic hypoxic respiratory failure ([facility])Start: 06-13-2024 End: 34-12-8751lhhbfomyjoJEUZOPProvidence Medical Center Ambulatory PPGStart: 06-07-2024 End: 94-20-8823Nroluqeul encounterDiaz Dalton MD Work Phone: noms CW FMStart: 06-03-2024 End: 58-72-0083Oyjrlxrpd encounterGary Miller DO Work Phone: noms CI ORTHOPAEDICSComment on above:medical clearance Start: 05-30-2024 End: 97-71-0006Frpxbx outpatient visit 15 minutesGary Miller DO Work Phone: noms FB ORTHOPAEDICSComment on above:Right wrist pain; Carpal tunnel syndrome, rightStart: 05-30-2024 End: 96-48-7885Kzlvor flowsTona Miller DO Work Phone: noms FB ORTHOPAEDICSStart: 05-30-2024 End: 05-22-0502Hfrflj flowsTona Miller DO Work Phone: noms FB ORTHOPAEDICSStart: 05-29-2024 End: 55-47-3629Kcsvnv Froy Dalton MD Work Phone: NORG CWM FMStart: 05-29-2024 End: 36-82-7674Zuwjcxshun Dalton MD Work Phone: noms CWM FMStart: 05-29-2024 End: 09-07-5416Rskqbs outpatient visit 25 minutesDiaz Dalton MD Work Phone: noms CWM FMComment on above:Acute pain of right knee (Primary Dx); Type 2 diabetes mellitus with microalbuminuria, with long-term current use of insulin (CMS/[facility]); Right carpal tunnel syndromeStart: 05-28-2024 End: 05-42-2872Bxbmxkkls encounterSue Chow CMAProMedica Physicians Cardiology Start: 05-27-2024 End: 31-59-1603Jnmcexgvm encounterBethanie Patricia [facility]OSPITALProMedica Physicians CardiologyStart: 05-15-2024 End: 23-36-6386UrqvqoHivq Naderer MD Work Phone: NORI CWM FMComment on above:Type 2 diabetes mellitus with hyperglycemia, with long-term current use of insulin (CMS/HCC) (Primary Dx); Carpal tunnel syndrome of left wrist; Anxiety state ([facility])Start: 05-13-2024 End: 33-99-0777Yzcatx Froy Dalton MD Work Phone: [facility] CWM FMStart: 05-13-2024 End: 77-53-6686Qepjdp flowsVikas Dalton MD Work Phone: [facility] CWM FMStart: 05-13-2024 End: 76-57-4786Rtaxuo outpatient visit 25 minutesDiaz Dalton MD Work Phone: NOVR CW FMComment on above:Type 2 diabetes mellitus with hyperglycemia, with long-term current use of insulin ([facility]) (Primary Dx); Right carpal tunnel syndrome; Chronic hypoxic respiratory failure ([facility]); Mild episode of recurrent major depressive disorder (HCC) ([facility]); JOHN (generalized anxiety disorder) ([facility]); Generalized edema; Spondylosis without myelopathy; 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 elsewhere ([facility])Start: 05-07-2024 End: 78-86-9347Nzhgwhxvv encounterSjade Rod Physicians Pulmonary/Sleep MedicineComment on above:Chronic hypoxic respiratory failure ([facility]) (Primary Dx); SOB (shortness of breath); HypoxiaStart: 04-24-2024 End: 65-44-0937Qisejt flowsheetCorey Demar DO Work Phone: [facility] BCP OBStart: 04-24-2024 End: 06-87-3139Ijtojr flowsheetCorey Demar DO Work Phone: [facility] BCP OBStart: 04-24-2024 End: 49-97-3444Ozozjm outpatient visit 15 minutesCorey Demar DO Work Phone: [facility] BCP OBComment on above:Encounter to discuss test resultsStart: 04-18-2024 End: 13-21-0683Bgtkynjve encounterEmkeisha CRUZ FB ORTHOPAEDICSStart: 04-16-2024 End: 25-84-8116ameghnqopyRmzwhGoyo MillerFacility:[facility] Campustart: 04-15-2024 End: 67-08-0219AkpcaqHfjrqAleah Recio MD Work Phone: [facility] CardiologyComment on above:Med RefillStart: 04-10-2024 End: 23-26-3458Ouqkemqro encounterSmitha Germain MD Work Phone: [facility] - Sleep Disorders Comment on above:Sleep Lab (Comp PSG/PAP)Start: 04-09-2024 End: 46-35-4421Ctobbl OnlySilvia Otero RMAProMedica Physicians Pulmonary/Sleep MedicineComment on above:Chronic hypoxic respiratory failure (CMS-HCC) (Primary Dx); SOB (shortness of breath); HypoxiaStart: 04-09-2024 End: 50-83-4721Kygtwg outpatient visit 15 minutesAbmarycruz Germain MD Work Phone: [facility] Physicians Pulmonary/Sleep MedicineComment on above:JOSE M (obstructive sleep apnea) (Primary Dx); Chronic hypoxic respiratory failure (CMS-HCC); Severe obesity (BMI >= 40) (CMS-HCC)Start: 04-03-2024 End: 80-25-1458zawpqgkzgjOglpp Terrance PaulFacility:[facility] Campustart: 04-03-2024 End: 23-45-5905Hpormrjpz Result EncounterGeneric External Data ProviderNOMS External Department UnsolicitedStart: 04-03-2024 End: 60-51-9841Sfymtqpyf Result EncounterGeneric External Data ProviderNOMS External Department UnsolicitedStart: 04-02-2024 End: 60-09-6057Jbkymivbg Result EncounterGeorgette KAPLAN Work Phone: noms External Department UnsolicitedStart: 04-02-2024 End: 90-53-8002Ovnjbncih Result EncounterGeorgette KAPLAN Work Phone: noms External Department UnsolicitedStart: 03-21-2024 End: 98-49-6187Yrcndv OnlyConstance Sidel RNProMedica Physicians Pulmonary/Sleep MedicineComment on above:Moderate persistent asthma without complicationStart: 03-18-2024 End: 86-05-2813Yyrv/qhp telephone evaluation 07-24 Delia Arrieta DO Work Phone: [facility] Pulmonary/Sleep MedicineComment on above:Chronic hypoxic respiratory failure ([facility]) (Primary Dx); Obstructive sleep apnea syndrome; Pulmonary nodule; Moderate persistent asthma without complicationStart: 03-12-2024 End: 70-80-1535Ijqytjgku encounterScharles Arrieta DO Work Phone: [facility] Pulmonary/Sleep MedicineStart: 02-26-2024 End: 60-47-7447Ebbzbuaqc encounterScharles Arrieta DO Work Phone: [facility] Pulmonary/Sleep MedicineStart: 02-19-2024 End: 13-26-0818Lnbyrb OnlyLindsay Arrieta DO Work Phone: [facility] Pulmonary/Sleep MedicineComment on above:Dyspnea on exertion (Primary Dx); Chronic hypoxic respiratory failure ([facility]); Moderate persistent asthma without complicationStart: 02-08-2024 End: 31-72-9761Sthqxs outpatient visit 25 minutesLindsay Arrieta DO Work Phone: [facility] Pulmonary/Sleep MedicineComment on above:Mediastinal lymphadenopathy (Primary Dx); Hypoxia; Pulmonary nodule; Severe obesity (BMI >= 40) ([facility]); Dyspnea on exertionStart: 01-05-2024 End: 15-15-7969Khclfozzq encounterScharles Arrieta DO Work Phone: [facility] Pulmonary/Sleep MedicineStart: 12-20-2023 End: 43-80-5636Fpygaqvei department patient visitSvishnu Kent DO Work Phone: [facility] - Acute Care Comment on above:Hyperglycemia (Primary Dx); Acute cystitis without hematuria; HypoxiaStart: 11-40-4130Bubvjefxf encounterLibby Finley MD Work Phone: [facility] Pulmonary/Sleep MedicineStart: 11-15-2023 End: 86-97-8887Kxpgsldxk to [facility] Phone Call Provider 4 Marci [facility]etart: 11-10-2023 End: 46-79-4231Doqsat outpatient new 45 minutesLbiby Finley MD Work Phone: ProSouth[facility] Medical Centerca Physicians Pulmonary/Sleep MedicineComment on above:Mediastinal lymphadenopathy (Primary Dx); Pulmonary nodule; Morbid obesity (CMS-HCC)Start: 35-99-4079Ddtimr Opal Mckeon [facility]ITALProMedica Physicians Cardiothoracic Surgeons - Kuldip Jobst TowerComment on above: Mediastinal lymphadenopathy (Primary Dx)Start: 11-09-2023 End: 86-01-0272Zverrq consultation new/estab patient 59 Charles Mcneal MD Work Phone: [facility] Cardiothoracic Surgeons - Kuldip Jobst TowerComment on above:Cavitary lesion of lungStart: 10-24-2023 Documentation procedureBethanie LoredoUniversity Hospitals Beachwood Medical Centerca Physicians Cardiothoracic Surgeons - Kuldip Jobst TowerStart: 10-86-7462Hpdewujgrtdgk procedureBethanie LoredoUniversity Hospitals Beachwood Medical Centerca Physicians Cardiothoracic Surgeons - Kuldip Jobst TowerStart: 10-10-2023 End: 42-05-9138Szehmo outpatient visit 15 minutesCorey Demar DO Work Phone: NOHX BCP OBComment on above:AmenorrheaStart: 10-05-2023 End: 17-52-3508Iqulul follow up visit related to original Mac Snowden NP Work Phone: NOKA FB ORTHOPAEDICSComment on above:Status post carpal tunnel release (Primary Dx)Start: 09-25-2023 End: 83-59-0480sflrxjjuplBueewGoyo MillerFacility:[facility] HospitalStart: 09-13-2023 End: 47-08-6635xauuzjiegyGsjvmGoyo MillerFacility:[facility] HospitalStart: 54-26-2544Vnqkkwsesbeip procedureBethanie LoredoUniversity Hospitals Beachwood Medical Centerca Physicians Cardiothoracic Surgeons - Kuldip Jobst TowerStart: 01-10-2023 End: 13-02-9443yysvpnbakoOKHT CARMENTAMEKAN .Facility:Y2Uwsdi: 12-26-2022 End: 9082aelqbqdltrWL FELIZ DEMAR .Facility:J0Qhwwd: 12-07-2022 End: 66-47-7093stjzpdxlflVZFYS MUSTAPHAUniversKettering Health Greene Memorialtart: 11-21-2022 End: 06-74-1765xfkifrrdyaRJBBY MUSTAPHAUniversity Del Sol Medical Centertart: 11-04-2022 End: 44-38-5613szijsuaxhlDSMUI MUSTAPHAUniversity Del Sol Medical Centertart: 09-14-2022 End: 49-39-6249tptchprzygGY FELIZ DEMAR .Facility:H2Fcrdw: 07-14-2022 End: 09-53-7867umcfldyhbmGJ FELIZ DEMAR .Facility:Q7Olhdy: 06-22-2022 End: 72-05-0749qcnvjlztsjOQ FELIZ DEMAR .Facility:A1Anvor: 02-23-2022 End: 86-99-4039vgplnlwxmaQU DIAZ Phipps NADERERFacility:M2Ltdns: 01-23-2022 End: 00-32-7233tppmpvtyjnYD DIAZ Phipps NADERERFacility:R9Xcikf: 86-35-6837hpaazbfufu DIAZ MORALES NADERERFacility:[facility] HospitalStart: 09-28-2021 End: 27-69-8974Hgqrahbcib and management of inpatientRiverside Methodist Hospitaltart: 09-28-2021 End: 81-63-7786Aevseqbcgi and management of inpatientMichaelod Julianna WERNER Work Phone: stvz 1D Burn UnitStart: 06-09-2015 End: 98-96-6218Nzfsiexrm for gynecological examination (general) (routine) without abnormal findingsJr. Stepanic DO Work Phone: [facility] HealthcareStart: 06-09-2015 End: 13-62-6501Tmgkcxfbulmgs examination normalGrant Michelle AVILA Work Phone: [facility] Procedures DateProcedureProcedure DetailPerforming ClinicianStart: 43-61-2422XB Cataract PHACO W/IOL/Vitrectomy (Left)Diaz Dalton MD Work Phone: Start: 41-13-5166JGG BASIC METABOLIC PANELMajuancarlos KAPLAN Work Phone: Start: 07-45-1521NOQ 12-LEADCorey Demar DO Work Phone: Start: 05-63-6664XK Cataract PHACO W/IOL/Vitrectomy (Right)Diaz Dalton MD Work Phone: Start: 01-50-9589BL PELVIS W/ TRANSVAGINALGeneric External Data ProviderStart: 36-15-7157JBS CBC WITH AUTO DIFFDiaz Dalton MD Work Phone: Start: 51-25-2118MG KNEE LT WO CONMattyuridia KAPLAN Work Phone: Start: 44-16-8409Nmtwpesuwm examination knee 1/2 views Shama KAPLAN Work Phone: Start: 78-98-6325Thihbkxgsu glycosylated m8vNsodDiaz Dalton MD Work Phone: Start: 25-59-6619EjbgntwelfeWfkmku Venia CMAStart: 51-77-0921JGK,APTIMA HPV,AGE GDLNCorey Demar DO Work Phone: Start: 16-45-7504Jwphqwgdeub observation [Identifier] in Cervix by Cyto stainDiaz Dalton MD Work Phone: Start: 91-00-1820Kswbeu-up visitFollow-upCARSON E OOSTRAStart: 62-48-9795GT TOMOSYNTHESIS SCREENING BICorey Demar DO Work Phone: Start: 20-95-0212NgyckostzljBdoh Naderer MD Work Phone: Start: 63-77-5900Fcsgqc-up visitFollow-upSCHARLES ARRIETAStart: 60-61-5324MZ PELVIS W/ TRANSVAGINALGeneric External Data Provider Start: 36-19-3718AO ABDOMEN/PELVIS WO CONTGeorgette KAPLAN Work Phone: Start: 43-37-2863Ymko bld gluc mntr dev cleared fda spec home useMuarturo Graff MD Work Phone: Start: 00-01-0186Hrjb bld gluc mntr dev cleared fda spec home useEzequiel Graff MD Work Phone: Start: 72-05-9865Qlztr metabolic panel calcium total Erin A Faucett POT OPERATOR-OPERATING SYSTEMS SPECIALIST Work Phone: Start: 12-22-2023 End: 23-64-5404Afiv bld gluc mntr dev cleared fda spec home useMuarturo Graff MD Work Phone: Start: 04-43-0377Ftcx bld gluc mntr dev cleared fda spec home useEzequiel Graff MD Work Phone: Start: 97-72-6414Qoaj bld gluc mntr dev cleared fda spec home useEzequiel Graff MD Work Phone: Start: 48-69-7089Xpusp metabolic panel calcium total Erin A Faucett POT OPERATOR-OPERATING SYSTEMS SPECIALIST Work Phone: Start: 82-25-2303Olun bld gluc mntr dev cleared fda spec home useEzequiel Graff MD Work Phone: Start: 91-28-6852Tpju bld gluc mntr dev cleared fda spec home useEzequiel Graff MD Work Phone: Start: 22-61-5912Ehrd bld gluc mntr dev cleared fda spec home useEzequiel Graff MD Work Phone: Start: 49-78-4485OYWY O2 EVALUATIONKynicki Zurita POT OPERATOR-OPERATING SYSTEMS SPECIALIST Work Phone: Start: 62-39-6067Lcbkxle quantitative blood xcpt reagent stripEddie Zurita POT OPERATOR-OPERATING SYSTEMS SPECIALIST Work Phone: Start: 67-49-0750Lkvvw metabolic panel calcium total Erin Desire Mendez POT OPERATOR-OPERATING SYSTEMS SPECIALIST Work Phone: Start: 70-23-8016Soha bld gluc mntr dev cleared fda spec home useMuarturo Palomino Dajuan WERNER Work Phone: Start: 12-56-4283NNOBJ OXIMETRY, SPOTCharity Desire Faucett POT OPERATOR-OPERATING SYSTEMS SPECIALIST Work Phone: Start: 12-20-2023 End: 05-30-2963Qjzf bld gluc mntr dev cleared fda spec home useShayne A Kent DO Work Phone: Start: 33-54-6069Zgrkcf bodies serum quantitative Dayna Doe POT OPERATOR-OPERATING SYSTEMS SPECIALIST Work Phone: start: 84-52-9686Ofldrvxufm exam chest single view Dayna Howell Brook POT OPERATOR-OPERATING SYSTEMS SPECIALIST Work Phone: start: 20-08-0184Ktifa dip stick/tablet rgnt auto w/o microscopyShayne A Kent DO Work Phone: Start: 12-20-2023 End: 81-02-9536Omdfztxxpmjgh metabolic panelRachel D Brook POT OPERATOR-OPERATING SYSTEMS SPECIALIST Work Phone: start: 69-48-6398Lqhbptq bacterial quanttative colony count urineRachel D Brook POT OPERATOR-OPERATING SYSTEMS SPECIALIST Work Phone: start: 51-63-4841Otj routine ecg w/least 12 lds trcg only w/o i&rRachel D Brook POT OPERATOR-OPERATING SYSTEMS SPECIALIST Work Phone: start: 29-68-9596Iibcqyabfvv observation [Identifier] in Cervix by Cyto stainDiaz Dalton MD Work Phone: Start: 26-19-1037ZzabzcrexuxVjfsa Michelle AVILA Work Phone: Start: 45-11-3238Lhqrz depression screening assessment Bethanie WileyStart: 30-33-3520Tasalhuiaon observation [Identifier] in Cervix by Cyto stainJennifer WileyStart: 43-86-6944Mwybbxibetra [Mass/volume] in Urine by Test stripJennifer WileyStart: 27-66-3091Ckxoelj blood reagent stripEugene Salas DO Work Phone: Start: 85-15-4812Claszcx blood reagent stripEugene Salas DO Work Phone: Start: 27-73-8347Psdva metabolic panel calcium total Terrance Smalls PA-C Work Phone: Start: 11-39-3224JJDVXAWZ PLATELET FRACTIONTerrance Smalls PA-C Work Phone: Start: 53-55-8461Ybuwsvf blood reagent stripEugene Salas DO Work Phone: Start: 01-55-4235Qjsznvj blood reagent stripEugene Salas DO Work Phone: Start: 57-70-0796Vfhgzya blood reagent stripEugene Salas DO Work Phone: Start: 60-62-9696Btiso function panelEugene Salas DO Work Phone: Start: 41-05-9760Fzbpssa blood reagent stripEugene Salas DO Work Phone: Start: 10-02-2021 End: 92-94-9816Plggx of phosphorus inorganicTerrance Smalls PA-C Work Phone: Start: 57-86-4303Ommktfb blood reagent stripEugene Salas DO Work Phone: Start: 17-86-1962Vpnah/antitoxin assay tissue culture Omar Lopez MD Work Phone: Start: 20-04-9462Xvwynct blood reagent stripEugene Salas DO Work Phone: Start: 10-01-2021 End: 85-24-0875Saeraxjlxpf panelTerrance Smalls PA-C Work Phone: Start: 56-60-3447Ou abdomen & pelvis w/o contrast materialEugene Salas DO Work Phone: Start: 90-56-1100Ihzgw-dna/rna gi pthgn multiplex probe tq 12-25Eugene Salas DO Work Phone: Start: 75-88-9112XGFWFOXXKPW PANEL, MOLECULAR, WITH COVID-19Eugene Salas DO Work Phone: Start: 16-51-5194Rmgbrdf blood reagent stripEugene Salas DO Work Phone: Start: 10-01-2021 End: 27-71-5298Uxpvynbvwgh panelEugene Salas DO Work Phone: Start: 64-75-1531Diauv of magnesiumTerrance Smalls PA-C Work Phone: Start: 03-85-4193AAJEXBNA PLATELET FRACTIONTerrance Smalls PA-C Work Phone: Start: 79-54-0787Epbfatd blood reagent stripMaycol Gomez MD Work Phone: Start: 09-30-2021 End: 48-95-5812Twqnkeswxqu panelTerrance Smalls PA-C Work Phone: Start: 75-70-2435Tpgwz dip stick/tablet reagent auto microscopyTerrance Smalls PA-C Work Phone: Start: 04-86-8553Nkdluxx blood reagent stripMaycol Gomez MD Work Phone: Start: 07-07-7862Fhpuv gases any combination ph pco2 po2 co2 dns5VcfiqwTerrance Smalls PA-C Work Phone: Start: 09-30-2021 End: 96-94-6032Elodl metabolic panel calcium totalTerrance Smalls PA-C Work Phone: Start: 08-66-9670Hequgau blood reagent stripMaycol Gomez MD Work Phone: Start: 43-15-5261Gnc prsmptv pthgnc organism scrn w/colony Sejal Smalls PA-C Work Phone: Start: 97-11-0595Dznttfd blood reagent stripMaycol Gomez MD Work Phone: Start: 26-59-1314Nesaqusluq glycosylated x6qYwojMaycol Gomez MD Work Phone: Start: 62-13-7813TUXRM METABOLIC PANEL W/ REFLEX TO MG FOR LOW KTricia R Bedoya POT OPERATOR - AGENCY CASHIER Work Phone: Start: 69-12-4184QGMWAKQX REJECTIONMichaelmandshanon Giron Sra, MD Work Phone: Start: 57-32-6524Vkemotj blood reagent stripMaycol Gomez MD Work Phone: Start: 29-53-7616Jmhensl blood reagent stripMaycol Gomez MD Work Phone: Start: 73-17-6845Ixqqxbf blood reagent stripMaycol Gomez MD Work Phone: Start: 20-40-1385Icuxvhb blood reagent stripJamal Levine MD Work Phone: Start: 43-31-5776Gbcyv gases any combination ph pco2 po2 co2 gns1OgyujJamal Levine MD Work Phone: Start: 09-29-2021 End: 23-00-9247Fpvre metabolic panel calcium totalHarmandeep Bree Ahuja MD Work Phone: Start: 18-11-9302JJPKEQTX Vasiliy Casarez MD Work Phone: Start: 28-87-7444Irwjo metabolic panel calcium total Harmandeep Bree Ahuja MD Work Phone: Start: 69-59-4913Fipbn metabolic panel calcium total Harmandeep Bree Ahuja MD Work Phone: Start: 17-74-9605Eziabgk blood reagent stripJamal Levine MD Work Phone: Start: 54-81-1110Ecizzir blood reagent stripJamal Levine MD Work Phone: Start: 09-28-2021 End: 84-31-1819Lixlk metabolic panel calcium tomasaMi Bree Ahuja MD Work Phone: Start: 09-28-2021 End: 70-75-2269Wlgbshp blood reagent stripJamal Levine MD Work Phone: Start: 09-28-2021 End: 41-33-6729Togqb metabolic panel calcium totalMi Bree Ahuja MD Work Phone: Start: 09-28-2021 End: 20-64-7744Cbhelzy blood reagent stripJamal Levine MD Work Phone: Start: 29-23-8537Egvhzvb blood reagent stripJamal Levine MD Work Phone: Start: 09-28-2021 End: 17-97-8543Wjqmk metabolic panel calcium totalMi Bree Ahuja MD Work Phone: Start: 09-28-2021 End: 88-66-8753Dgdvlec blood reagent stripJamal Levine MD Work Phone: Start: 09-28-2021 End: 07-54-2448Hbqqsqw bacterial quanttative colony count urineMi Giron Sra, MD Work Phone: Start: 96-25-2275Cxpyc dip stick/tablet rgnt auto w/o microscopyMi Giron Sra, MD Work Phone: Start: 65-24-9942Nlucr gases any combination ph pco2 po2 co2 axb6Rduhrz Marco MDStart: 90-52-9350Ecuzjgawyg exam chest single view Harmjorgito Giron Sra, MD Work Phone: Start: 09-28-2021 End: 21-56-7064Afmjp metabolic panel calcium totalRylielongkarley Bree Ahuja MD Work Phone: Start: 00-06-6237WSNMSMF, BLOOD 1Harmandshanon Giron Sra, MD Work Phone: Start: 71-38-0670YORUKQRN PLATELET FRACTIONHarcara Giron Sra, MD Work Phone: Start: 35-14-1658Fdyliun bacterial blood aerobic w/id isolatesHarcara Giron Sra, MD Work Phone: History of decompression of median nerveStatus post carpal tunnel releaseEset Min Snowden AGENCY CASHIER Work Phone: History of decompression of median nerveStatus post carpal tunnel releaseEset Min Snowden AGENCY CASHIER Work Phone: History of decompression of median nerveStatus post carpal tunnel releaseEset T Michelle AGENCY CASHIER Work Phone: Plan of Treatment DateCare ActivityDetailAuthorStart: 01-66-8470Yejbnjzpc for malignant neoplasm of colonNOMS HealthcareStart: 57-51-9558MZdH,Tdap and Td Vaccines (2 - Td or Tdap)DTaP,Tdap and Td Vaccines (2 - Td or Tdap)[facility] SystemStart: 64-33-0749XQuH/Tdap/Td vaccine (2 - Td or Tdap)DTaP/Tdap/Td vaccine (2 - Td or Tdap)[facility] SpringfieldStart: 19-97-1179Bvgsikwig for malignant neoplasm of colon ColonoscopyProMercy Health St. [facility] SystemStart: 74-89-1310Obhvhtjiz for malignant neoplasm of cervixNOMS HealthcareStart: 01-56-3846Zjdxfpviy for malignant neoplasm of cervixNOMS HealthcareStart: 54-51-4637Lxilbmgw screeningDiabetes: Retinopathy ScreeningNOMS HealthcareStart: 29-56-5431Pxtmzujz screeningDiabetes: Retinopathy ScreeningNOMS HealthcareStart: 83-95-2297Kxzbjoyp screening Diabetes: Retinopathy ScreeningNOAZ HealthcareStart: 51-36-6759Jembtztln for malignant neoplasm of cervixPap SmearNOMS HealthcareStart: 43-14-9499Jzzvi BMI ScreeningAdult BMI ScreeningUniversity Hospitals [facility] SystemStart: 08-66-2505Mxmwe BMI ScreeningAdult BMI ScreeningProMedica Health SystemStart: 38-03-4209Tljbade ScreeningTobacco ScreeningProMedica Health SystemStart: 40-00-2134Zewrh screening for proteinDiabetes: Urine Protein ScreeningLOGAN REGIONAL [facility] HealthcareStart: 11-06-8594Obikr BMI ScreeningAdult BMI ScreeningProSouthview Medical Centerca Health SystemStart: 32-71-6158Zeibfygp screeningDiabetes: Retinopathy ScreeningLOGAN REGIONAL HOSPITAL HealthcareStart: 50-43-8871Oubmd BMI ScreeningAdult BMI ScreeningProMedica Health SystemStart: 21-27-8650Dmavmqw ScreeningTobacco ScreeningProMedica Health SystemStart: 98-40-5491Llsjxze ScreeningTobacco ScreeningProMedica Health SystemStart: 58-24-0543Yixcp BMI ScreeningAdult BMI ScreeningProMedica Health SystemStart: 59-67-1406Gdnwfyw ScreeningTobacco ScreeningProMedica Health SystemStart: 00-46-5217Zefmu BMI ScreeningAdult BMI ScreeningProMedica Health SystemStart: 90-78-4257Wzfvtyg ScreeningTobacco ScreeningProMedica Health SystemStart: 17-37-6953Xzkzj BMI ScreeningAdult BMI ScreeningProMedica Health SystemStart: 01-30-9739Lliiaov ScreeningTobacco ScreeningProMedica Health SystemStart: 49-49-8390Bteyt BMI ScreeningAdult BMI ScreeningProMedica Health SystemStart: 54-93-6581Klpiihw ScreeningTobacco ScreeningProMedica Health SystemStart: 08-20-2025 End: 64-67-7787Quebkep encounter ptedjhiyj06/17/2025 1:40 PM EST Consult CHELSEY CARRERA [address] [place] [address] Feliz Benz DO [address] [place] [address] CHELSEY GARZAtart: 08-19-2025 End: 05-45-3060Wfzumyd encounter procedureNOLIVERMORE SANITARIUM OBStart: 45-88-2833Kkbwb BMI ScreeningAdult BMI ScreeningProMedica Health SystemStart: 58-12-9804Dtxkiyn ScreeningTobacco ScreeningUniversity Hospitals Beachwood Medical Centerca Memorial Hospital SystemStart: 52-12-3015Cclun BMI ScreeningAdult BMI ScreeningProSouthview Medical Centerca Memorial Hospital SystemStart: 68-20-5534Iewccsk ScreeningTobacco ScreeningProSouthview Medical Centerca Memorial Hospital SystemStart: 87-77-9351Gawie BMI ScreeningAdult BMI ScreeningProSouthview Medical Centerca Memorial Hospital SystemStart: 35-45-3363Yxcwlzr ScreeningTobacco ScreeningUniversity Hospitals Beachwood Medical Centerca Memorial Hospital SystemStart: 27-34-6905Pcvamnpiv for malignant neoplasm of cervixPap SmearUniversity Hospitals [facility] SystemStart: 07-10-2025 End: 90-33-0376Imisstb encounter unsybblyv94/06/2025 1:00 PM EST Office Visit [facility] [address] [place] [phone] Barry Snowden, AGENCY CASHIER [address] [place] [address] [facility] OrthopaedicsStart: 07-07-2025 End: 12-22-8463Zaqmmys encounter procedureProMedica Physicians CardiologyStart: 96-21-4316Pbgkjzksi for malignant neoplasm of breastMammogramNOMS [facility] Start: 06-30-2025 End: 73-92-3252Didkgva encounter zyvqgngva98/27/2025 10:10 AM EDT Office Visit CHELSEY CARRERA [address] [place] [address] Feliz Benz DO [address] [place] [address] CHELSEY GARZAtart: 81-55-6341Msjlt BMI ScreeningAdult BMI ScreeningUniversity [facility]als [facility] SystemStart: 16-27-9514Ezvdepb ScreeningTobacco ScreeningUniversity Hospitals Beach[facility] Medical Centerca Memorial Hospital SystemStart: 78-98-4528Cppbn BMI ScreeningAdult BMI ScreeningUniversity Hospitals Beachwood Medical Centerca Memorial Hospital SystemStart: 00-58-7273Uqwuwmd ScreeningTobacco ScreeningUniversity [facility]als [facility] SystemStart: 02-49-6143Sywfd BMI ScreeningAdult BMI ScreeningUniversity Hospitals [facility] SystemStart: 37-91-5029Hgghrto ScreeningTobacco ScreeningUniversity Hospitals [facility] SystemStart: 06-12-2025 End: 38-96-9307UzvwxttuaMercy Health Willard Hospitaltart: 41-46-6370Gsojryl referralCincinnati Va Medical Center Work Phone: Start: 06-03-2025 End: 08-31-7384Ssrab metabolic 1998 panel - Serum or PlasmaBasic metabolic panel Lab Routine Pre-op examination Expected: 06/03/2025 (Approximate), Expires: [facility] Work Phone: Comment on above:Expected: 06/03/2025 (Approximate), Expires: 06/03/2026Start: 06-03-2025 End: 09-14-4357Kmwadte encounter procedureNOChase County Community Hospital OrthopaedicsComment on above:Pre-op examination (Primary Dx)Start: 05-26-2025 End: 61-60-1256Spwbnyq encounter vyboubxda34/22/2025 1:20 PM EDT Consult [facility] Benny CARRERA [address] [place] [address] Feliz Benz DO [address] [place], [place] [id number] [facility] Benny DALYGYNStart: 05-22-2025 End: 75-78-4256Grlwacc encounter fasqaqhlg61/18/2025 1:30 PM EDT Office Visit [facility] [address] [place] [phone] Diaz Dalton MD [address] [place] [id number] [facility] FMStart: 85-06-9664Ohonx BMI ScreeningAdult BMI ScreeningUniversity Hospitals [facility] SystemStart: 60-99-2709Icyiopq ScreeningTobacco ScreeningProSouthview Medical Centerca Health SystemStart: 05-15-2025 End: 17-10-4131Tupfzjd encounter ysaspvcea97/11/2025 1:00 PM EDT Office Visit NOM[facility] [address] [place] [address] Diaz Dalton MD [address] [place] [address] NOMGer CASAS FMStart: 05-15-2025 End: 43-94-1392WtyuskbomMercy Health Willard Hospitaltart: 05-08-2025 End: 03-20-7796Ggvf O2 evaluationHome O2 evaluation Respiratory Care Routine Hypoxia Dyspnea on exertion Expected: 05/08/2025, Expires: 05/01/2026[facility] Work Phone: Comment on above:Expected: 05/08/2025, Expires: 05/01/2026Start: 05-06-2025 End: 57-37-4633idyymvmago45/02/2025 10:00 AM EDT Monitor [facility] Infant Monitor [address] [place] [address] [facility] Infant MonitorStart: 73-85-9176WUSZH-19 Vaccine ( season)COVID-19 Vaccine ( season)[facility] SystemStart: 76-01-4734Yllbxercu vaccinationUniversity Hospitals [facility] Medical Center SystemStart: 78-92-9724Nihewoajbo A1c measurementDiabetes: Hemoglobin T2ZJXZF Healthcare Start: 41-29-2301Rytupxe ScreeningTobacco ScreeningProMercy Health St. [facility] SystemStart: 04-22-2025 End: 92-22-3828Gjhfkvv encounter procedureNOMS FB ORTHOPAEDICSComment on above: ArrivedStart: 04-21-2025 End: 90-30-3612Qzmeyks encounter nqmjjqywl54/18/2025 2:30 PM EDT Procedure Visit CHELSEY CARRERA [address] [place] [address] [place] [address] Feliz Benz, DO [address] [place] [address] [place] [address] CHELSEY Zapata OBGYNStart: 04-21-2025 End: 16-68-4152yelxzxeiisODGL CI PTStart: 04-18-2025 End: 37-11-1046ygfwefpydhQFKB CI PTStart: 04-15-2025 End: 72-89-9772egiytssigmNPLN CI PTStart: 04-14-2025 End: 16-92-7069RS PelvisUS Pelvis w/ TV Imaging Routine Pelvic pain in female Expected: 04/14/2025, Expires: 10/15/2025[facility] Work Phone: comment on above:Expected: 04/14/2025, Expires: 10/15/2025Start: 04-14-2025 End: 22-61-5118Rtvehkh encounter procedureNOMS Zapata OBGYNComment on above: ArrivedStart: 04-10-2025 End: 24-06-2555vqjbbfkatjFNBA CI PTStart: 98-81-8542Afoja BMI ScreeningAdult BMI ScreeningBrown Memorial Hospital Health SystemStart: 96-98-2753Uqnvpus ScreeningTobacco ScreeningUniversity Hospitals [facility] SystemStart: 04-08-2025 End: 50-53-2429Uvgeivc encounter procedureNOMS BCP OBStart: 04-07-2025 End: 17-83-9308lszbiynwbcSZWM CI PTStart: 04-03-2025 End: 73-26-4566Tixcdpzp Olplmtp0904/03/2025 11:00 AM EDT Clinical Support [facility] - Pharmacy Medication Management [address] [place] [place] [address] YbnLaguapKettering Health [facility] - Pharmacy Medication ManagementStart: 04-02-2025 End: 01-67-6479puiourotubWTFD CI PTComment on above:Acute pain of left knee (Primary Dx)Start: 03-28-2025 End: 47-37-3746iaiiwusyny80/25/2025 12:00 PM EDT Treatment [facility] CI PT [address] [facility] [address] [place] [address] Ubaldo Herzog PTANOMS CI PTStart: 03-26-2025 End: 11-97-7471eifvxfjklsCIRP CI PTComment on above:Acute pain of left knee (Primary Dx)Start: 03-21-2025 End: 34-17-8689kxziluawczZLQL CI PTComment on above:Acute pain of left knee Start: 03-20-2025 End: 40-67-1215Npmdzsle Xfyiykt7903/20/2025 1:30 PM EDT [facility] Med[facility] Management [address] [place] [address] [facility]XvthqfEastern [facility] - Pharm[facility] Medication ManagementStart: 03-18-2025 End: 72-97-3883Cciozsy encounter vsuywwzbw71/15/2025 11:00 AM EDT Office Visit [facility]OP[facility] [address] [place] [address] Shama Medina, PA [address] [facility] 150 [place] [address] NOMS FB ORTHOPAEDICSStart: 03-17-2025 End: 03-18-4421Poybbob encounter llerwwaut57/14/2025 2:30 PM EDT Procedure Visit [facility] BCP OB [address] [place] [address] Feliz Benz, [address] [place] [address] NOMS BCP OBStart: 03-14-2025 End: 52-51-0126Jmlxlbm encounter procedureNOMS PCF ORTHOComment on above:Arrived Start: 03-13-2025 End: 55-44-7245Qdewgsk encounter gztifhtzn10/10/2025 9:30 AM EDT Office Visit [facility] [address] [place] [address] Lindsay Arrieta, DO [address] [place] [address] [facility] Pulmonary/Sleep MedicineStart: 02-25-2025 End: 00-05-9961Ypuflro encounter procedureNOMS FB ORTHOPAEDICSComment on above: Acute pain of right kneeStart: 02-25-2025 End: 83-19-2469GK Knee - left WO contrastMR knee left wo IV contrast Imaging Routine Internal derangement of left knee Expected: 02/25/2025 (Approximate), Expires: 02/25/2026[facility] Work Phone: Comment on above:Expected: 02/25/2025 (Approximate), Expires: 02/25/2026Start: 02-10-2025 End: 39-66-1011Veixs metabolic 1998 panel - Serum or PlasmaBasic metabolic panel Lab Routine Benign essential hypertension (CMS/HCC) Expected: 02/10/2025 (Appr oximate), Expires: 02/10/2026[facility] HealthcareComment on above:Expected: 02/10/2025 (Approximate), Expires: 02/10/2026Start: 02-10-2025 End: 91-62-0840XOB W Auto Differential panel - BloodCBC and differential Lab Routine Encounter for long-term (current) use of medications Expected: 05/2025 (Approximate), Expires: 02/10/2026[facility] HealthcareComment on above: Expected: 02/10/2025 (Approximate), Expires: 02/10/2026Start: 02-10-2025 End: 40-93-7963Wetqvfqcxa A1c/Hemoglobin.total in BloodHemoglobin A1c Lab Routine Type 2 diabetes mellitus with hyperglycemia, with long-term current use of insulin (CMS/HCC) Expected: 02/10/2025 (Approximate), Expires: 02/10/2026[facility] HealthcareComment on above:Expected: 02/10/2025 (Approximate), Expires: 02/10/2026Start: 02-10-2025 End: 95-90-7059Cxkjdom function 2000 panel - Serum or PlasmaHepatic function panel Lab Routine Encounter for long-term (current) use of medications Expected: 02/10/2025 (Approximate), Expires: 02/10/2026[facility] HealthcareComment on above: Expected: 02/10/2025 (Approximate), Expires: 02/10/2026Start: 02-10-2025 End: 82-21-9282Pdaag 1996 panel - Serum or PlasmaLipid panel Lab Routine Dyslipidemia ([facility]/HCC) Expected: 02/10/2025 (Approximate), Expires: 02/10/2026 [facility] HealthcareComment on above:Expected: 02/10/2025 (Approximate), Expires: 02/10/2026Start: 02-10-2025 End: 70-09-6115Dpykcedsyeox/Creatinine panel in random UrineMicroalbumin / creatinine, urine ratio Lab Routine Type 2 diabetes mellitus with hyperglycemia, with long-term current use of insulin ([facility]) Expected: 02/10/2025 (Approximate), Expires: 02/10/2026[facility] Work Phone: Comment on above:Expected: 02/10/2025 (Approximate), Expires: 02/10/2026Start: 02-10-2025 End: 40-06-3269Kcsfpmxqhrq [Units/volume] in Serum or PlasmaTSH Lab Routine Class 3 severe obesity due to excess calories with serious comorbidity and body mass index (BMI) of 40.0 to 44.9 in adult Expected: 02/10/2025 (Approximate), Expires: 02/10/2026[facility] HealthcareComment on above:Expected: 02/10/2025 (Approximate), Expires: 02/10/2026Start: 02-10-2025 End: 91-18-4959Izxdsgu encounter yqlrhjiqw00/09/2025 1:00 PM EDT Office Visit CHELSEY CASAS FM [address] [place] [address] Diaz Dalton MD [address] [place] [address] CHELSEY CASAS FMStart: 27-99-7610Rtnat BMI ScreeningAdult BMI ScreeningProMercy Health St. [facility] SystemStart: 22-29-4048Iqpneha ScreeningTobacco ScreeningProAultman Alliance Community Hospitaltart: 02-03-2025 End: 34-19-0957Jnuxqvl encounter eafbjjofg01/02/2025 10:00 AM EDT Appointment [facility] - Pulmonary Function [address] [place] [address] Lindsya Arrieta, DO [address] [address] [facility] - Pulmonary FunctionStart: 02-02-2025 End: 34-22-5816Zlakritai function test Spirometry (Flow Volume Loop) pre/post short acting bronchodilator w/ DLCO (diffusion study)Pulmonary function test Spirometry (Flow Volume Loop) pre/post short acting bronchodilator w/ DLCO ( diffusion study) PFT Routine Moderate persistent asthma without complication Chronic hypoxic respiratory failure ([facility]) Expected: 02/02/2025 (Approximate), Expires: 06/13/2025[facility] Work Phone: Comment on above:Expected: 02/02/2025 (Approximate), Expires: 06/13/2025Start: 91-85-7324Rdnsqzgraw A1c measurementDiabetes: Hemoglobin Q8WIANSUniversity of Missouri Children's HospitalStart: 01-08-2025 End: 89-85-2855Vrhwkdg encounter mtwrtcijl49/07/2025 1:15 PM EDT Procedure Visit [facility] [address] [place] [address] Carmen Bowman, DPM [address] [place], [place] [address] [facility] PODIATRYStart: 01-03-2025 End: 04-30-8245Ozwkmal encounter eabovzlke17/02/2025 9:15 AM EDT Office Visit [facility]icians Cardiology [address] [facility] 1 [place] [address] Katelyn Recio, [address] [place] [address] [facility] CardiologyStart: 12-31-2024 End: 73-38-3955Nbirhkd encounter /29/2025 11:30 AM EDT Office Visit [facility] Pul[facility]Sleep Medicine Critical [facility] [place] [address] Smitha Germain MD [address] [address] [facility] Pulmonary/Sleep MedicineStart: 12-04-2024 End: 81-64-3876Ozywqvd encounter ycjydpjjo41/02/2025 1:00 PM EDT Office Visit [facility] [address] [facility] [place] [address] Pacheco Madrigal, POT OPERATOR-OPERATING SYSTEMS SPECIALIST [address] [place] [address] [facility] Pulmonary/Sleep MedicineStart: 70-04-5888Grxjkojlow A1c measurementDiabetes: Hemoglobin M5VLZHDUniversity of Missouri Children's HospitalStart: 11-44-5056Lnymrsd ScreeningTobacco Screening [facility] Hospitaltart: 11-20-2024 End: 77-09-1092Dmotkybm Jdhpkuv7611/20/2024 8:00 PM EDT Clinical Support [facility] - Sleep Disorders [address] [place] [address] Smitha Germain MD [address] [address] [facility] - Sleep DisordersStart: 05-86-1403Uvrtc BMI ScreeningAdult BMI ScreeningProSouthview Medical Centerca Health SystemStart: 24-21-0097Zfwvkaf ScreeningTobacco ScreeningProSouthview Medical Centerca Memorial Hospital SystemStart: 52-92-5933Bnrkm BMI ScreeningAdult BMI ScreeningProMedica Memorial Hospital SystemStart: 12-76-5067Heecuxj ScreeningTobacco ScreeningUniversity [facility] Start: 11-07-2024 End: 36-04-7593Wxsznkg encounter procedureNOOKLAHOMA SPINE [facility] [facility] FMComment on above:Arrived Start: 10-28-2024 End: 39-08-5748Svaybex encounter eqabezkjk06/24/2025 2:15 PM EST Office Visit [facility] C[facility] FM [address] [place] [address] Diaz Dalton MD [address] [place] [address] [facility] FMComment on above:ArrivedStart: 10-28-2024 End: 94-71-5408Qxzxbbgnjo A1c/Hemoglobin.total in BloodHemoglobin A1c Lab Routine Type 2 diabetes mellitus with hyperglycemia, with long-term current use of insulin ([facility]) Expected: 10/28/2024 (Approximate), Expires: 10/28/2025[facility] Work Phone: Comment on above:Expected: 10/28/2024 (Approximate), Expires: 10/28/2025Start: 86-75-7387Fqkahlm ScreeningTobacco ScreeningUniversity [facility]als [facility] SystemStart: 33-80-6616Vdfmo BMI ScreeningAdult BMI ScreeningUniversity Hospitals [facility] SystemStart: 10-09-2024 End: 73-96-2546Vxvtxbp encounter xgjqvysmw76/05/2025 1:15 PM EST Office Visit [facility] [address] [place] [address] Carmen Bowman, DPGeorgette [address] [place] [address] [facility] PODIATRYStart: 10-07-2024 End: 85-25-4811Hryfwpb encounter eubcnqifc92/03/2025 8:15 AM EST Office Visit [facility] [address] [facility] 1 [place] [address] Katelyn Recio MD [address] [place] [address] [facility] Physicians CardiologyStart: 47-09-4896Tibpx screening for proteinDiabetes: Urine Protein ScreeningNOAZ HealthcareStart: 09-25-2024 End: 72-43-9000Kxkhczf encounter lnolyvcqd40/22/2025 1:15 PM EST Office Visit [facility] [address] [place] [address] Carmen Bowman, DPM [address] [place], [place] [address] [facility] PODIATRYStart: 09-12-2024 End: 89-59-8839Gclcysjsj to same day surgery ohmrch8309/12/2024 11:30 AM EST - 09/12/2024 12:00 PM EST Surgery [facility] [address] [place] [address] Aliya Solorzano, DO [address] [place], [place] [address] COLONOSCOPY DIAGNOSTIC / SCREENING [41999 (CPT)][facility] HospitalComment on above:COLONOSCOPY DIAGNOSTIC / SCREENING [76305 (CPT )]Start: 09-12-2024 End: 00-35-1909Xshkxdouzu /09/2025 11:30 AM EST Anesthesia Event [facility] [address] [place], [place] [address] Ector Saini, DO [address] [place] [address] [facility] Start: 09-12-2024 End: 11-75-3811Vwedjuogmhb flx dx w/collj spec when pfrmdCOLONOSCOPY DIAGNOSTIC / SCREENING Screen for colon cancer 09/12/2024 11:30 AM ESTFREMONT SURGERYStart: 50-03-3440Avhwzzwerx hospital visit by ldjtyngyv95/09/2025 11:30 AM EST Hospital Encounter [facility] - Surgery [address] [place] [address] Aliya Solorzano, DO [facility]1 [place], [place] [address] [facility] - SurgeryStart: 08-15-2024 End: 89-02-9846Ttarsbs encounter ebuqixero53/12/2024 1:30 PM EST Office Visit [facility] [address] [place] [address] Diaz Dalton MD [address] [place] [address] [facility] CWM FMStart: 11-68-6301Ehcgemywky A1c measurementDiabetes: Hemoglobin E6BRSWA HealthcareStart: 08-06-2024 End: 02-15-8883Fmhefpr encounter procedureNOMS [facility] OBComment on above:Arrived Start: 07-25-2024 End: 15-18-1506Bvtzq metabolic 2000 panel - Serum or PlasmaBasic Metabolic Panel Lab Routine Dyspnea on exertion Pulmonary hypertension ([facility]-HCC) Expected: , Expires: 07/18/2025[facility] Work Phone: Comment on above:Expected: 07/25/2024, Expires: 07/18/2025Start: 07-18-2024 End: 00-28-7089Veezxqo encounter fmqpjtark97/14/2024 11:30 AM EST Office Visit [facility] [address] [place] [address] Hair See MD [address] [place] [address] [facility] CardiologyStart: 07-15-2024 End: 34-21-8594Hrzdpzr encounter hqakhnbae00/11/2024 10:15 AM EST Office Visit [facility] [address] [address] Barry Snowden, AGENCY CASHIER [address] [place], [place] [address] [facility] FB ORTHOPAEDICSStart: 87-81-5988Gediv BMI ScreeningAdult BMI Screening [facility] SystemStart: 31-94-9510Ozbzkkb ScreeningTobacco Screening [facility] Hospitaltart: 07-04-2024 End: 17-35-2029Mzrxlsze Tgbbfps1107/04/2024 9:00 AM EDT Clinical Support [facility] Physicians Cardiology [address] [place] [address] [facility] CardiologyStart: 06-69-4152Khuyvdbmu for malignant neoplasm of breastMammogramNOMS HealthcareStart: 06-26-2024 End: 94-79-9907Fqkomanel to same day surgery tpoofq2406/26/2024 8:30 AM EDT - 06/26/2024 9:30 AM EDT Surgery [facility] Cardiac Cath [address] [place] [address] Nicolás Vallejo MD [address] [place] [address] Cardiac Invasive [facility] Cardiac CathComment on above:Cardiac InvasiveStart: 85-98-4513Saaxcstiku hospital visit by wkdyoggis62/23/2024 8:30 AM EDT Hospital Encounter [facility] Cardiac Cath [address] [facility] [place] [place] [address] Nicolás Vallejo MD [address] [place] [address] Pulmonary hypertension ([facility]-HCC)[facility] - Cardiac CathComment on above:Pulmonary hypertension ([facility]-HCC) Start: 06-24-2024 End: 84-13-7258Xidjujq encounter procedureNOMS FB ORTHOPAEDICSComment on above: ArrivedStart: 06-20-2024 End: 86-83-7114Rcyjguh encounter tdbkyulqk90/17/2024 8:00 AM EDT Office Visit [facility] [address] [facility] 1 [place] [address] Nicolás Vallejo MD [address] [place] [address] Katelyn Recio MD [address] [place] [address] [facility] Start: 06-17-2024 End: 59-00-2338Qnsjllc encounter /14/2024 9:00 AM EDT Procedure Visit [facility] EXT DEP Gary Miller, DO [address] [facility] 150 [place] [address] [facility] EXT DEPStart: 06-13-2024 End: 30-03-5663Ccnpuae encounter hifkbcyku99/10/2024 1:00 PM EDT Office Visit [facility]Sleep [facility] [address] [place] [address] Lindsay Arrieta, DO [address] [address] [facility] Pulmonary/Sleep MedicineStart: 57-20-8105Vndwhnquso ScreeningDepression ScreeningProMedica Health SystemStart: 05-30-2024 End: 13-55-8236Fniwtxs encounter procedureNOMS FB ORTHOPAEDICSComment on above: ArrivedStart: 05-29-2024 End: 88-36-8231Mzpouyy encounter wtywnspew58/25/2024 9:45 AM EDT Office Visit [facility] CWGeorgette FM [address] [place] [address] Diaz Dalton MD [address] [place] [address] [facility] FMComment on above:ArrivedStart: 05-28-2024 End: 79-19-7559Vespvrx encounter hhtgvjawp84/24/2024 11:30 AM EDT Office Visit [facility] [address] [facility] 1 [place] [address] Nicolás Vallejo MD [address] [place], [place] [address] [facility] CardiologyStart: 05-16-2024 End: 92-41-0666Levdelb encounter utwuihxbo20/12/2024 9:45 AM EDT Office Visit [facility] Pul[facility]/Sleep Medicine [address] [place] [address] Lindsay Arrieta DO [address] [facility] [address] [place] [address] [facility] Pulmonary/Sleep MedicineStart: 43-62-2232Ctwcshewtr A1c measurementDiabetes: Hemoglobin J1POTEUUniversity of Missouri Children's HospitalStart: 05-14-2024 End: 50-06-9770Lsulado encounter aqaitpill38/10/2024 8:30 AM EDT Appointment [facility] - Cardiovascular [address] [place] [address] [phone] [facility] Hospital - Cardiovascular Start: 05-13-2024 End: 66-45-0048Zboyohmpqm A1c/Hemoglobin.total in BloodHemoglobin A1c Lab Routine Type 2 diabetes mellitus with hyperglycemia, with long-term current use of insulin ([facility]) Expected: 05/13/2024 (Approximate), Expires: 05/13/2025[facility] Work Phone: Comment on above:Expected: 05/13/2024 (Approximate), Expires: 05/13/2025Start: 05-13-2024 End: 69-25-0564Dupwhuh encounter procedureNOMS CWM FMComment on above:Arrived Start: 38-40-7473LVQWE-19 Vaccine ( season)COVID-19 Vaccine ( season)[facility]tart: 85-79-2395ZLSZT-19 Vaccine ( season)COVID-19 Vaccine ()[facility] Start: 69-40-1885Zruhtzkjv vaccinationNOMS HealthcareStart: 04-24-2024 End: 57-12-1028Vwbhzkb encounter aaowumpjm76/21/2024 1:50 PM EDT Office Visit [facility] B[facility] OB [address] [place] [address] Feliz Benz DO [address] [facility] [address] [place], [place] [address] ArrivedNOMS BCP OBComment on above:ArrivedStart: 04-23-2024 End: 30-34-8253AP Chest limited W contrast IVCT chest with contrast Imaging Routine Mediastinal lymphadenopathy Expected: 04/23/2024, Expires: 02/07/2025 [facility] Work Phone: Comment on above:Expected: 04/23/2024, Expires: 02/07/2025Start: 04-23-2024 End: 23-09-3177Szlzhvw encounter oehozmybj38/20/2024 8:30 AM EDT Appointment [facility] - CT Imaging [address] [place] [address] Lindsay Arrieta, DO [address] [address] [facility] - CT ImagingStart: 04-09-2024 End: 33-06-3902Fxgciaf encounter yljzdgsng40/06/2024 11:00 AM EDT Office Visit [facility] [address] [place] [address] Smitha Germain MD [address] [address] [facility] Pulmonary/Sleep MedicineStart: 03-18-2024 End: 37-58-2980Ywcymhobqlih consultation with mtglxmk2503/18/2024 3:00 PM EDT Telemedicine [facility] [address] [address] Lindsay Arrieta, [address] [address] [facility] Pulmonary/Sleep MedicineStart: 03-12-2024 End: 07-29-7460Nuemgusbzsfw consultation with pmaidtm2703/12/2024 2:00 PM EDT Telemedicine [facility] [address] [address] Lindsay Arrieta, [address] [address] [facility] Pulmonary/Sleep MedicineStart: 02-19-2024 End: 00-50-2806Cvlt complete W/O contrastEcho complete W/O contrast Echocardiography Routine Dyspnea on exertion Chronic hypoxic respiratoryfailure (CMS-HCC) Expected: 02/19/2024, Expires: 02/18/2025[facility] Work Phone: Comment on above:Expected: 02/19/2024, Expires: 02/18/2025Start: 02-19-2024 End: 71-69-6646DX Chest PA and LateralX-ray chest 2 views Imaging Routine Dyspnea on exertion Expected: 02/19/2024, Expires: 02/18/2025ProSouthview Medical Centertuul SystemComment on above:Expected: 02/19/2024, Expires: 02/18/2025Start: 02-15-2024 End: 41-06-3003gawwaxrwjj07/13/2024 2:00 PM EDT Infant Monitor [facility] - Monitor [address] [place] [address] [phone] Bay Park Hospital - Infant MonitorStart: 02-13-2024 End: 34-84-0113Pjcufor encounter /11/2024 8:00 AM EDT Appointment [facility] - Pulmonary Function [address] [place] [address] Lindsay Arrieta, DO [address] [facility] - Pulmonary FunctionStart: 02-08-2024 End: 51-72-6840Jtnhxrt encounter rtifejfsd56/06/2024 9:00 AM EDT Office Visit [facility] Critical access hospital0 [place] [address] Lindsay Arrieta, DO [address] [address] [facility] Pulmonary/Sleep MedicineStart: 11-22-2023 End: 51-39-3068Tegarctim to same day surgery tskuzn0011/22/2023 1:30 PM EDT - 11/22/2023 3:[address] [facility] - Endoscopy [address] [place] [address] Libby Finley MD [address] [facility] [place], [place] ENDOBRONCHIAL ULTRASOUND BRONCHOSCOPYSCCI Hospital [facility] EndoscopyComment on above: ENDOBRONCHIAL ULTRASOUND BRONCHOSCOPYStart: 11-22-2023 End: 42-37-1764EUKSWVCQGYRLZ ULTRASOUND BRONCHOSCOPYENDOBRONCHIAL ULTRASOUND BRONCHOSCOPY LYMPH ADENOPATHY 11/22/2023 1:[facility] Start: 14-39-4221Iglfxbytxm hospital visit by gsiiuckyl81/20/2024 1:30 PM EDT Hospital Encounter [facility] - Endoscopy [address] [place] [address] Libby Finley MD [address] [facility], [address] [place] [address] [facility] EndoscopyStart: 11-15-2023 End: 78-57-5970Etxriwecx to msvrkurcoomdl21/13/2024 10:30 AM EDT Support Visit [facility]Admission [facility] On [address] [address]QopZidspq [facility] Start: 11-02-2023 End: 50-92-1330Waahakg encounter bcflkhdyh50/29/2024 1:30 PM EST Office Visit [facility] [address] [place] [address] Barry Snowden, [place] [address] [place] [address] [facility]: 10-26-2023 End: 55-49-5688Ktrpkwe encounter sxfmzqycy26/22/2024 10:00 AM EST Appointment [facility] - Ultrasound [address] [place] [address] [facility]: 10-17-2023 End: 38-45-5509Dgbplsl encounter khlpganic89/13/2024 1:30 PM EST Office Visit [facility] [address] [place] [address] Diaz Dalton MD [address] [place] [address] [facility]: 10-11-2023 End: 37-70-8829Jizryicvk, totalEstrogens, total Lab Routine Amenorrhea Expected: 10/11/2023 (Approximate), Expires: 10/11/2024NOAZ HealthcareComment on above: Expected: 10/11/2023 (Approximate), Expires: 10/11/2024Start: 10-11-2023 End: 92-32-9532BW for pregnancyUS PELVIS-TRANSVAG IF INDICATED Imaging Routine Amenorrhea Expected: 10/11/2023 (Approximate), Expires: 10/11/2024NOAZ HealthcareComment on above:Expected: 10/11/2023 (Approximate), Expires: 10/11/2024Start: 10-10-2023 End: 88-24-4989Qbnyfjf encounter nrgaormxg10/06/2024 8:00 AM EST Office Visit [facility] OB [address] [place] [id number] Feliz Benz, DO [address] [place] [address] AmenorrheaNOMS [facility] OBComment on above:AmenorrheaStart: 73-58-4298Xusit screening for proteinUrine MicroalbuminProSouthview Medical Centerca Memorial [facility] Start: 09-15-7296Nywyovvdmy A1c measurementDiabetes: Hemoglobin C8LSHSN HealthcareStart: 08-32-3290MEGDP-19 Vaccine ( season)COVID-19 Vaccine ( season)[facility] Hospitaltart: 15-13-1044Flrhhpnst vaccinationLOGAN REGIONAL HOSPITAL HealthcareStart: 96-54-1015Qzbiguorqk A1c nqcrywhodvwD6H test (Diabetic or Prediabetic)[facility] SpringfieldStart: 98-54-3548UOIFR-19 Vaccine (3 - Booster for Pfizer series)COVID-19 Vaccine (3 - Booster for Pfizer series)[facility] SpringfieldStart: 02-71-0810FUyP/Tdap/Td Vaccines (2 - Td or Tdap)DTaP/Tdap/Td Vaccines (2 - Td or Tdap)[facility] HealthcareStart: 97-75-4018Twjrogpbd vaccination Flu vaccine (#1)[facility] Centerart: 83-14-7190Qvfiqgdts for malignant neoplasm of cervixK[facility]tering Health SpringfieldStart: 87-78-1407ZGN Vaccines (1 - 3-dose SCDM series)HPV Vaccines (1 - 3-dose SCDM series)[facility] HospitalStart: 90-50-1837Bkfawjull for malignant neoplasm of cervixPap smearKettering Health SpringfieldStart: 58-32-9558Kbuehqghs B vaccine (1 of 3 - Risk 3-dose series)Hepatitis B vaccine (1 of 3 - Risk 3-dose series)[facility] SpringfieldStart: 94-01-8021Rjszuvubb B Vaccines (1 of 3 - 19+ 3-dose series)Hepatitis B Vaccines (1 of 3 - 19+ 3-dose series)[facility] HospitalStart: 41-83-4997Qiump BMI Follow Up PlanAdult BMI Follow Up PlanDuke Raleigh Hospitaltart: 43-07-4527Nqfqjgyi foot examinationDiabetic Foot ExamDuke Raleigh Hospitaltart: 27-11-0319Rpsissxd retinal examDiabetic retinal examKettering Health SpringfieldStart: 55-02-0135Rmavi screening for proteinDiabetic microalbuminuria test [facility]: 10-77-2570XAD screeningHIV screenUniversity Hospitals Beachwood Medical Centerart: 40-24-4139Nfxdbyfwbn ScreenDepression ScreenUniversity Hospitals Beachwood Medical Centerart: 1990 Diabetic foot examinationDiabetic foot examKettering Health SpringfieldStart: 48-17-7791Saloflda screeningDiabetes: Retinopathy ScreeningUniversity of Missouri Children's HospitalStart: 43-95-4401Nvcdy panelLipid screenKettering Health SpringfieldStart: 09-81-3224Fxbzwttpkvkb 0-64 years Vaccine (1 of 2 - PPSV23)Pneumococcal 0-64 years Vaccine (1 of 2 - PPSV23)[facility] Start: 05-36-1880ZFZ Vaccines (1 of 1 - Standard series)MMR Vaccines (1 of 1 - Standard series)[facility] HospitalStart: 58-00-5056Fovifrac screeningDiabetic Ophthalmology ExamDuke Raleigh Hospitaltart: 42-98-5270Phoumasuv C screening Hepatitis C screenKettering Health SpringfieldStart: 92-24-8848Lrpcqosmj for malignant neoplasm of colonNOAZ HealthcareStart: 00-28-6569Ovyoxh Use: DiabeticStatin Use: Diabetic [facility] HospitalBasic metabolic 2000 panel - Serum or PlasmaBasic Metabolic Panel Lab Routine Lab max of 3 days, Daily, for lab use only until discontinued starting 12/21/2023, 3 completedGifford Medical CenterLearnBIG SystemComment on above:Lab max of 3 days, Daily, for lab use only until discontinued starting 12/21/2023, 3 completedBedside Glucose *Place/Obtain serum glucose if >500(>600 MRH) per glucometer.Bedside Glucose *Place/Obtain serum glucose if >500(>600 MRH) per glucometer. Point of Care Testing Routine 4X Daily (AC and at bedtime) until discontinued starting 12/21/2023, 10 completedGifford Medical CenterLearnBIG System Comment on above:4X Daily (AC and at bedtime) until discontinued starting 12/21/2023, 10 completedCBC panel - Blood by Automated countCBC without diff Lab Routine Lab max of 3 days, Daily, for lab use only until discontinued starting 12/21/2023, 3 completedGifford Medical CenterLearnBIG SystemComment on above:Lab max of 3 days, Daily, for lab use only until discontinued starting 12/21/2023, 3 completedCBC W Auto Differential panel - BloodCBC auto differential Lab Routine Daily until discontinued starting 09/29/2021, 4 [facility] Work Phone: comment on above:Daily until discontinued starting 09/29/2021, 4 completed End: 42-68-8228BzgqbvodtdfnvWyvifzxphpzcy Lab Routine Mediastinal lymphadenopathy Pulmonary nodule 1 Occurrences starting 11/10/2023 until 11/09/2024[facility] Medical CenterSqrlComment on above:1 Occurrences starting 11/10/2023 until 11/09/2024 End: 37-80-6220Pbjqjgkcqx includes GFR, serumCreatinine includes GFR, serum Lab Routine Mediastinal lymphadenopathy 1 Occurrences starting 02/08/2024 until 02/07/2025[facility] Medical CenterSqrlComment on above:1 Occurrences starting 02/08/2024 until 02/07/2025ulture, Anaerobic and AerobicCulture, Anaerobic and Aerobic Microbiology [employer] Label Print 09/30/2021 9:50 AM [employer] Work Phone: Follicle stimulating hormoneFollicle stimulating hormone Lab Routine Amenorrhea Ordered: 10/11/2023NOWavo.me Work Phone: comment on above:Ordered: 10/11/2023 End: 07-34-8919Wtkrhuqpt Assay for (1,3)-E-O-YeuzekNrmqgukyd Assay for (1,3)-B-D-Glucan Lab Routine Mediastinal lymphadenopathy Pulmonary nodule 1 Occu rrences starting 11/10/2023 until 11/09/2024[facility] Medical CenterBlue Focus PR Consulting Work Phone: Comment on above:1 Occurrences starting 11/10/2023 until 11/09/2024Glucose [Mass/volume] in Serum or PlasmaPOCT glucose Point of Care Testing Routine 4X Daily (AC & HS) until discontinued starting 09/29/2021 [facility] Work Phone: comment on above:4X Daily (AC & HS) until discontinued starting 09/29/2021 End: 40-20-8327Jmuqontwkcc antigen, serumHistoplasma antigen, serum Lab Routine Mediastinal lymphadenopathy Pulmonary nodule 1 Occurrences starting 11/10/2023 until 11/09/2024[facility] SnapApp[facility]ments [facility] HospitalComment on above:1 Occurrences starting 11/10/2023 until 11/09/2024 End: 27-89-3449Zwvueforhur antigen, urineHistoplasma antigen, urine Microbiology Routine Mediastinal lymphadenopathy Pulmonary nodule 1 Occurrences starting 11/10/2023 until 11/09/2024[facility] Centertuul [facility] HospitalComment on above:1 Occurrences starting 11/10/2023 until 11/09/2024 End: 69-86-9340Jbor O2 eval (desaturation screen)Home O2 eval (desaturation screen) Respiratory Care Routine Hypoxia Dyspnea on exertion 1 Occurrences starting 02/08/2024 until 02/07/2025[facility] Centertuul [facility] HospitalComment on above:1 Occurrences starting 02/08/2024 until 02/07/2025 End: 80-38-1623Plovasebzv pneu IGGHyperssens pneu IGG Lab Routine Mediastinal lymphadenopathy Pulmonary nodule 1 Occurrences ebnhvyzu36/08/2024 until 11/09/2024[facility] Centertuul [facility] HospitalComment on above:1 Occurrences starting 11/10/2023 until 11/09/2024 End: 52-64-7995Ogymmjns RT ProtocolInitiate RT Protocol Respiratory Care Routine Continuous until discontinued starting 10/01/2021[facility] CenterH[facility] Work Phone: comment on above:Continuous until discontinued starting 10/01/2021[facility] Lab Routine Amenorrhea Ordered: 10/11/2023NOAZ HealthcareComment on above:Ordered: 10/11/2023 End: 78-88-4425Dzyxm panelLipid panel Lab Routine Pure hypercholesterolemia 1 Occurrences starting 07/07/2025 until 07/07/2026[facility] Work Phone: Comment on above:1 Occurrences starting 07/07/2025 until 07/07/2026Magnesium [Mass/volume] in Serum or PlasmaMagnesium Lab Routine Lab max of 3 days, Daily, for lab use only until discontinued starting 024, 3 completedProLearnBIG SystemComment on above:Lab max of 3 days, Daily, for lab use only until discontinued starting 12/21/2023, 3 completed Oxygen Therapy - Maintain SpO2: 90%; *INFORMATION AND REFERRAL DIRECTOR Guidelines for O2: Yes; Document: \[email or web address]\epic\EPIC_Reference\Orders\Respiratory Care Guidelines\CPG Oxygen 2020.pdfOxygen Therapy - Maintain SpO2: 90%; *INFORMATION AND REFERRAL DIRECTOR Guidelines for O2: Yes; Document: \[email or web address]\epic\EPIC_Reference\Orders\Respiratory Care Guidelines\CPG Oxygen 2020.pdf Respiratory Care Routine AsNeeded until discontinued starting 4[facility] Work Phone: Comment on above:As Needed until discontinued starting 12/20/2023Oxygen therapy [Minimum Data Set]Initiate Oxygen Therapy Protocol Respiratory Care Routine Daily until discontinued starting 09/28/2021[facility] CenterHem[facility] Medical Work Phone: comxuux on above:Daily until discontinued starting 09/28/2021atient EducationKnow your [facility] Work Phone: Patient [facility] Work Phone: End: 14-78-2553QESWQSQZIB BLOOD SMEAR, PATH REVIEWCleveland Clinic SnapAppointments Work Phone: Comment on above:One Time for 1 Occurrences starting 10/01/2021 until 2Phosphate [Mass/volume] in Serum or PlasmaPhosphorus Lab STAT Tomorrow AM until discontinued starting 10/01/2021, 3 completedW[employer] Phone: comment on above:Tomorrow AM until discontinued starting 10/01/2021, 3 completed End: 69-46-3673Zumkdksmyageiip 4 or more parameters with PAP titration Polysomnography 4 or more parameters with PAP titration Sleep Center Routine JOSE M (obstructive sleepapnea) Chronic hypoxic respiratory failure ([facility]) Severe obesity (BMI >= 40) ([facility]) 1 Occurrences starting 04/09/2024 until 04/09/2025 [facility] SystemComment on above:1 Occurrences starting 04/09/2024 until 04/09/2025 End: 65-42-9589ETQXUCZC FONU2 Phone: Comment on above:Once for 1 Occurrences starting 09/29/2021 until 09/29/2021 End: 61-21-1718YWVJXWZY FONU2 Phone: comment on above:Once for 1 Occurrences starting 09/30/2021 until 2ProgesteroneProgesterone Lab Routine Amenorrhea Ordered: 10/11/2023[facility] WISHCLOUDSComment on above:Ordered: 10/11/2023 End: 78-49-5206FGB DiagnosticPSG Diagnostic [facility] Routine JOSE M (obstructive sleep apnea) Chronic hypoxic respiratory failure ([facility]) Severe obesity (BMI >= 40) ([facility]) 1 Occurrences starting 04/09/2024 until 04/09/2025 [employer] Phone: Comment on above:1 Occurrences starting 04/09/2024 until 04/09/2025Respiratory care evaluation onlyRespiratory care evaluation only Respiratory Care Routine As Needed until discontinued starting 10/01/2021[employer] Phone: comment on above:As Needed until discontinued starting 10/01/2021THIN PREP TIS PAP AND HR HPV DNATHIN PREP TIS PAP AND HR HPV DNA Pathology and Cytology Routine Well woman exam with routine gynecological exam Ordered: 08/06/2024[facility] Work Phone: comment on above:Ordered: 08/06/2024 End: 71-23-4758Wiqxm ostomy eval and treatWound ostomy eval and treat Wound Ostomy Routine One Time for 1 Occurrences starting 09/28/2021 until 09/28/2021 [facility] Work Phone: comment on above:One Time for 1 Occurrences starting 09/28/2021 until 09/28/2021 Immunizations Immunization DateImmunizationNotesCare KxbgbjdgDlgnviyw36-71-7245Mmuvranunudm Conjugate PCV 20Diaz Dalton MD Work Phone: [facility] HospitalKnzbfjveml97-56-3866huixsvw toxoid, reduced diphtheria toxoid, and acellular pertussis vaccine, adsorbedGrant Snowden AGENCY CASHIER Work Phone: [facility] HospitalTcscmcdtjc60-67-7986mmqjnnrke, injectable, quadrivalent, preservative freeEset Michelle AGENCY CASHIER Work Phone: [facility] HospitalIrwihahovb40-19-1629itsaxdcqc virus vaccine, unspecified formulationGrant Michelle AGENCY CASHIER Work Phone: [facility] HospitalQnmyeuszcw40-85-0708epgwghjyk, injectable, quadrivalent, preservative freeDiaz Dalton MD Work Phone: [facility] HospitalUmkbzrvnqd26-62-2365yrgtixnja, injectable, quadrivalent, preservative freeDiaz Dalton MD Work Phone: [facility] HospitalAtgaifpzpy17-37-3648uqcynxfpj, injectable, quadrivalent, preservative freeDiaz Dalton MD Work Phone: [facility] HospitalVicmhnortj54-76-5821vvnqvqatt, injectable, quadrivalent, preservative freeDiaz Dalton MD Work Phone: [facility] HospitalOwmnwlcusg1979hpdmtek toxoid, adsorbedDiaz Dalton MD Work Phone: [facility] Payers DatePayer CategoryPayerPolicy [id number]-pay2017Medicaid [id number] 2.16.840.1.999355.3.57[id number] 2.16.840.1.720100.3.57[id number] 2.16.840.1.476585.3.57[id number] 2.16.840.1.228964.3.57[id number] 2..840.1.924340.3.57[id number] 2.16.840.1.217956.3.57[id number] 2.16.840.1.998075.3.579.2.45427-61-4276Jhfebdz7694360 2..840.1.151728.3.579.2.[id number] 2.840.1.369907.3.579.2.47520-04-2003Golqwkt32755048 2.16.840.1.922192.3.579.2.15098-83-2402Xrfvzrf90785234 2.16.840.1.002786.3.579.2.54432-17-6633Cxsolsl75975554 2.16.840.1.762770.3.579.2.87601-09-3533Oabqxao36191766 2.16.840.1.581919.3.579.2.59950-99-6241Dmuhrrs613389065 2.16.840.1.208519.3.579.2.639627-07-1607Dnqlohk79883878 2.0.1.665730.3.57[id number] 2.840.1.527720.3.579.2.46[id number] 2.0.1.261600.3.579.2.340361-39-8420Qewttpu925068388 2..1.283182.3.579.2.826947-90-6315Tridxdm32221364 2.0.1.447058.3.579.2.171106-20-8004Fkhysew75037472 2..1.914227.3.579.2.749892-48-1883Dxtxyes92240984 2.0.1.333119.3.579.2.783066-50-0926Ytbgqoa46007906 2..1.518538.3.579.2.245687-93-7489Htylxcb33692871 2.0.1.897557.3.579.2.445251-17-6776Mzpgfsg01415956 2..1.751768.3.579.2.488637-80-5780Xnvwuua44848929 2.840.1.861841.3.579.2.047460-21-1687Kofjsqw77768934 2.0.1.916277.3.579.2.545123-50-0579Izolffi92007210 2.840.1.071435.3.579.2.405201-29-5879Zffazgu00288147 2.840.1.728234.3.579.2.712855-78-6031Vtqetrd86179162 2.16.840.1.390485.3.579.2.673870-86-1195Vhldypu89466630 2.16.840.1.161399.3.579.2.493152-74-6844Bvwyrml29934688 2..840.1.307618.3.579.2.372256-37-7095Whvbthx14875018 2..840.1.278719.3.579.2.900043-88-3858Yllduqz33073747 2.840.1.366375.3.579.2.503741-08-1568Flupdcx6898083 2.840.1.361234.3.579.2.856725-12-4062Dzsobgh8962302 2..1.687168.3.579.2.022198-19-3904Erdcpmz6454255 2.840.1.660290.3.579.2.792964-95-3686Fcqgygo7550904 2.840.1.610708.3.579.2.717733-81-9637Pvlizvy4867153 2..1.391875.3.579.2.523218-18-7000Zmvwfcx0166283 2.840.1.508264.3.579.2.643834-28-9614Pwztruz2396480 2.840.1.990349.3.579.2.606351-87-6648Fjrnmjl732888049 2.840.1.688808.3.579.2.431895-73-2238Pvlgreh010363390 2.840.1.243606.3.579.2.797487-09-5688Liakikc842970022 2..840.1.047451.3.579.2.392161-91-8447Pkovscy315092610 2..840.1.517894.3.579.2.528175-86-9386Amjmovc498564036 2..840.1.670136.3.579.2.501967-79-3080Aeszabd432539472 2.840.1.394707.3.579.2.401332-18-5894Ilklupm138616469 2.840.1.504825.3.579.2.037055-57-1857Yxagheb914763378 2.840.1.631648.3.579.2.109624-25-1381Bsmpliw93600043 2.0.1.083486.3.579.2.587265-95-8345Zoabmra70562225 2.840.1.203505.3.579.2.574271-91-7606Ewcqrud71666406 2.840.1.675561.3.579.2.223816-92-2179Wsvfdtc67368776 2.840.1.459573.3.579.2.1286 [id number] 1..840.544343.1.13.23[id number] 2.840.1.430818.3.579.2.784Vtyshee15129895 2.840.1.708977.3.579.2.531 Jsqxpmh59827835 2.840.1.751839.3.579.2.531 Social History DateTypeDetailFacilityStart: 09-29-2021 End: 23-94-0754Saymjuc smoking status NHISNever smoked tobaccoMercy Health Work Phone: start: 09-29-2021 End: 47-69-6272Otiwonx use and exposureSmokeless tobacco non-userTogus Va Medical CenterSurDoc Health Work Phone: start: 09-29-2021 End: 59-25-9565Lldhlpi intakeLifetime non-drinker (finding)[employer] Work Phone: start: 90-55-1526Kqb Assigned At BirthNot on fileTogus Va Medical CenterHemova Medical Work Phone: start: 10-05-2023 End: 43-27-8193Ivruptv of Social functionBrown Memorial Hospital SnapAppointments SystemStart: 10-05-2023 End: 12-82-6597Yqjomui use panelUniversity Hospitals Geneva [facility] Center SystemStart: 91-12-1728Mywigny CommentCaffeine: 1-2 cups/day , nicole leiva [facility] HospitalStart: 06-27-2024 End: 24-35-7407Mzfkecrie beverage intakeCurrent drinker of alcohol (finding) [facility] HospitalHas the electric, gas, oil, or water Bango threatened to shut off services in your home in past 12MoYeAscension All Saints Hospital SystemDo you belong to any clubs or organizations such as caodaism groups, unions, fraternal or athletic groups, or school groups?NoPMercy Health Clermont HospitalAre you now , , , , never or living with a partner? [facility] SystemHow often to you have a drink containing alcohol?Never [facility] SystemStart: 80-57-9321Ryp many standard drinks containing alcohol do you have on a typical day?Patient does not drinkProCitizens Baptist Health SystemDo you feel stress - tense, restless, nervous, or anxious, or unable to sleep at night because yourmind is troubled all the time - these days [OSQ]Only a littleUniversity Hospitals Geneva Medical Center SystemStart: 40-93-9610Zclxvzt Commentoccasionally-once a monthUniversity Hospitals Geneva Medical Center SystemStart: 16-92-6931MmhXflmff (finding)[facility] SystemStart: 09-05-2024 End: 04-02-8532Kzyrwzpks beverage intakeEx-drinker (finding)[facility] SystemStart: 84-94-1523Jdo Assigned At [facility] Medical Equipment Procedure CodeEquipment CodeEquipment Original TextEquipment IdentifierDates Phacoemulsification of cataract with intraocular lens implantationPosterior- chamber intraocular lens, pseudophakic [id number] FDAStart: 93-89-5945GKF ONE PEN NEEDLE TO INJECT MEDICATION SIX TIMES A [id number]: 27-86-3721XET ONE PEN NEEDLE TO INJECT MEDICATION SIX TIMES A [id number]: 62-96-7116Ykq as [id number]: 01-08-2025 Goals DatePatient GoalDesired Activity/StatePersonal health goalComment on above: Evaluation of progress towards goal: In progress: Home with oxygen tomorrow. DC to home with oxygen today. DCO Taylor, 12/22/2023, 10:51 AMPersonsd health goalComment on above: Evaluation of progress towards goal: Patient plans to return home with self care.Personal health goalComment on above: Evaluation of progress towards goal: Home with family support. Clinical Notes 09-29-2021 to 07-07-2025 Note Date & GusqOzknQpdogbbk12-00-7013 History of Present illness Narrative* Chasidy Lai PA-C - 07/07/2025 9:30 AM EST Carissa Alla Santos Date of visit: 07/07/2025 Date of : 1980 Age: 44 y.o. Patient Active Problem List Diagnosis Hyperglycemia Chest wall pain Type 2 diabetes mellitus with hyperglycemia, with long-term current use of insulin ([facility]) Mild developmental delay Obstructive sleep apnea syndrome Hyperlipidemia associated with type 2 diabetes mellitus ([facility]) Abnormal ECG during exercise stress test Mediastinal lymphadenopathy Acute cystitis without hematuria Pulmonary nodule Dyspnea on exertion Moderate persistent asthma without complication Chronic hypoxic respiratory failure ([facility]) BMI 40.0-44.9, adult ([facility]) Pulmonary hypertension ([facility]) COPD (chronic obstructive pulmonary disease) ([facility]) Chronic heart failure with preserved ejection fraction ([facility]) Dyslipidemia Edema Gastroesophageal reflux disease [...] 06/26/2024 Performed by Harinder Estrella MD at [facility] CHOLECYSTECTOMY COLONOSCOPY 2021 COLONOSCOPY DIAGNOSTIC / SCREENING N/A 09/12/2024 Performed by Aliya Solorzano DO at [facility]TR[facility] BRONCHOSCOPY N/A 11/22/2023 Performed by Libby Finley MD at [facility] Right heart cath N/A 06/26/2024 Performed by Harinder Estrella MD at [facility] TONSILLECTOMY TUBAL LIGATION Bilateral [...] min Stress: No Stress Concern Present (12/20/2023) [employer] - Occupational Stress Questionnaire [...] Referring Physician: Diaz Dalton MD [address] [place] [address] Chasidy Lai PA-C 07/07/25 0954 documented in this encounterGifford Medical CenterLearnBIG Aurfrw49-78-1041 Instructions* Patient Instructions* Chasidy Lai PA-C - [...] up in 6 months documented in this encounterNorwalk Memorial Hospital10-31-2025 Miscellaneous Notes* Telephone Encounter - Bethanie Ro MA - 07/04/2025 1:51 PM EDT Called patient to remind them to bring their most current copy of their medication list with them to their appt. Patient verbalizes understanding. ROMEOW documented in this encounterNorwalk Memorial Hospital10-31-2025 Telephone encounter Note* Telephone Encounter - Bethanie Ro MA - 07/04/2025 1:51 PM EDT Called patient to remind them to bring their most current copy of their medication list with them to their appt. Patient verbalizes understanding. JLW [facility]10-06-2025 Miscellaneous Notes* Telephone Encounter - Maria C Bailey RN - 06/09/2025 10:47 AM EDT Surgeon: DR. Feliz Benz Type of surgery: Diagnostic Laproscopy w/ genital wart removal : Poss ANNE, Poss FOE, Poss BSO Date of surgery: 06/19/25 Surgery location: [place] Type of anesthesia: General On a blood [...] Preop clearance letter per LLD faxed via Referly to Dr. Lagos office. Fax confirmed sent via Referly. documented in this encounterNorwalk Memorial Hospital10-06-2025 Telephone encounter Note* Telephone Encounter - Maria C Bailey RN - 06/09/2025 10:47 AM EDT Surgeon: DR. Feliz Benz Type of surgery: Diagnostic Laproscopy w/ genital wart removal : Poss ANNE, Poss FOE, Poss BSO Date of surgery: 06/19/25 Surgery location: [place] Type of anesthesia: General On a blood thinner?: N/A On an antiplatelet?: N?A Date of last EK06/05/25- Preop Last office visit date and who they saw: 01/03/25- LLD Opt 3 Clearance requested due to abnormal preop EKG.. [facility]10-06-2025 Telephone encounter Note* Telephone Encounter - Katelyn Recio MD - 06/09/2025 10:47 AM EDT [facility] risk [facility] MichiganIlroic96-30-3479 Telephone encounter Note* Telephone Encounter - Jorge L Givens RN - 06/09/2025 10:47 AM EDT Preop clearance letter per LLD faxed via Referly to Dr. Lagos office. Fax confirmed sent via [employer]erly. [facility] [id number] Evaluation note* Diagnosis Onset Date Resolution Status [...] with long-term current use ofacuteOctober 2024 10:48am [facility] Work Phone: [phone] History of Present illness Narrative* ROSAURA Rosado [...] Morbid obesity with BMI of 40.0-44.9, adult ([facility]) Nocturnal hypoxemia Nonsmoker OAB (overactive bladder) [...] 12/29/2017 Diagnostic laparoscopy LAPAROTOMY OVARIAN CYSTECTOMY 03/31/2023 [place] ARTHROCENTESIS ASPIR&/INJ MAJOR JT/BURSA W/O US Right [...] (CELEXA) 40 mg, Oral, Daily Continuous Glucose Options Advisor (FreeStyle Crystal 3 [place]) device 1 Application, Does not apply, Continuous Continuous Glucose Sensor (FreeStyle Crystal 3 Sensor) [facility] USE TO MONITOR BLOOD SUGAR DIRECTED. CHANGE [...] UNITS DAILY* insulin pen needle (Droplet Pen Melfa) 32G x 4 mm [facility] Use as instructed lamoTRIgine (LAMICTAL) 200 mg, [...] and proposed surgery scheduled. SURGERY INSTRUCTIONS NEEDS [place] [facility] EXERCISES GIVEN Follow up in about 5 weeks (around 07/10/2025) for Post-Op July 10 @ 1:00 in [place] with Barry. documented in this [facility]09-25-2025 Telephone encounter Note* Telephone Encounter - Mary Shane - 05/29/2025 3:58 PM EDT Gynecology scheduled her for a procedure 06/20/25 & is scheduled for knee scope 06/26/[address] Jackson Asking if this is ok to have both in this time period? [facility] [id number] Miscellaneous Notes* Telephone Encounter - Mary Shane - 05/29/2025 3:58 PM EDT Gynecology scheduled her for a procedure 06/20/25 & is scheduled for knee scope 06/26/[address] Jackson Asking if this is ok to have both in this time period? documented in this [facility]09-22-2025 History of Present illness Narrative* Talisha Johnson - 05/26/2025 1:20 PM EDT Reason for Appointment: Patient ID: Carissa Santos is a 44 y.o. female who presents for Pre-op Visit Patient presents today for Pre Op appointment. Patient is scheduled to undergo Diagnostic Laparoscopy, possible ANNE, possible FOE, possible BSO and genital wart removal on 06-20-[address] Benz at [facility]. MEDICATIONS Current Outpatient Medications Medication Instructions [...] (CELEXA) 40 mg, Oral, Daily Continuous Glucose Options Advisor (FreeStyle Crystal 3 [place]) device 1 Application, Does not apply, Continuous Continuous Glucose Sensor (FreeStyle Crystal 3 Sensor) misc USE TO MONITOR BLOOD SUGAR DIRECTED. CHANGE SENSOR EVERY 14 DAYS. Continuous Glucose Sensor (FreeStyle Rcystal 3 Sensor) misc USE TO MONITOR BLOOD [...] UNITS DAILY* insulin pen needle (Droplet Pen Melfa) 32G x 4 mm misc Use as [...] heart failure with preserved ejection fraction (HFpEF) ([facility]) 04/06/2023 Equinus deformity of left foot 04/06/2023 Gastroesophageal reflux disease 04/06/2023 Genital warts 04/06/2023 Hot flashes due to menopause 04/06/2023 Type 2 diabetes mellitus with microalbuminuria, with long-term current use of insulin ([facility]) 04/06/2023 Internal derangement of left shoulder 04/06/2023 Irritable bowel syndrome with diarrhea 04/06/2023 Mild developmental delay 09/29/2021 Migraine without aura and without status migrainosus, not intractable 04/06/2023 Mild episode of recurrent major depressive disorder 04/06/2023 Class 3 severe obesity due to excess calories with serious comorbidity and body mass index (BMI) of40.0 to 44.9 in adult ([facility]) 11/21/2022 Type 2 diabetes mellitus with polyneuropathy ([facility]) 06/10/2021 Obstructive sleep apnea syndrome 09/30/2009 Osteoarthritis of knee 04/06/2023 Overactive bladder 04/06/2023 Panic disorder without agoraphobia 11/12/2009 Dyslipidemia 04/22/2010 Spondylosis without myelopathy 08/10/2010 Obesity hypoventilation syndrome ([facility]) 01/04/2024 Benign essential hypertension 01/04/2024 Right carpal tunnel syndrome 01/04/2024 Type 2 diabetes mellitus with hyperglycemia, with long-term current use of insulin ([facility]) 02/12/2024 Moderate persistent asthma without complication ([facility]) 02/19/2024 Pulmonary hypertension ([facility]) 08/06/2024 Dehydration 10/28/2024 Nausea & vomiting 10/28/2024 Encounter for long-term (current) use of medications 02/10/2025 Resolved Ambulatory Problems Diagnosis Date Noted Acute kidney injury (DREW) with acute tubular necrosis (ATN) 09/30/2021 Acute pain of left shoulder 04/06/2023 Shoulder joint pain 04/06/2021 Carpal tunnel syndrome of left wrist 04/06/2023 Convulsions in the ([facility]) 09/30/2009 Cubital tunnel syndrome on left 11/04/2022 Fecal incontinence 06/22/2016 High anion gap metabolic acidosis 09/30/2021 Hyperglycemia 03/01/2019 Mild intellectual disability 09/30/2009 Other chronic pain 04/06/2023 Pneumonia due to infectious organism 09/29/2021 Poorly controlled diabetes mellitus ([facility]) 08/10/2015 Normal gynecologic examination 06/09/2015 Missed period 04/06/2023 DKA, type 1, not at goal ([facility]) 09/27/2021 Type 2 diabetes mellitus ([facility]) 09/30/2009 Cavitary lesion of lung 08/10/2023 Other chest pain 08/10/2023 Hypoxia 01/04/2024 Chronic hypoxic respiratory failure ([facility]) 02/19/2024 Acute pain of right knee [...] Morbid obesity with BMI of 40.0-44.9, adult ([facility]) Nocturnal hypoxemia Nonsmoker OAB (overactive bladder) Obesity JOSE M (obstructive sleep apnea) Postoperative urinary retention Primary osteoarthritis of left knee Seasonal allergies Type 2 diabetes mellitus with diabetic polyneuropathy, with long-term current use of insulin ([facility]) Type 2 diabetes mellitus without complication ([facility]) Vitamin D deficiency HISTORY PAST MEDICAL HISTORY SOCIAL HISTORY Past Medical History: Diagnosis Date Ankle fracture Anxiety and depression At low risk for fall Bilateral leg edema Chest pain, central Chronic left shoulder pain Chronic pain Chronic respiratory failure (HCC) Dyslipidemia Epilepsy ([facility]) Childhood epilepsy JOHN (generalized anxiety disorder) Genital warts GERD (gastroesophageal reflux disease) History of being hospitalized pneumonia, diabetes, infection [10/29/21-11/05/21] History of medical problems mild mental retardation Hyperlipidemia Insomnia, persistent Irritable bowel syndrome with diarrhea MDD (major depressive disorder), recurrent episode, mild Migraine without aura and without status migrainosus, not intractable Morbid obesity with BMI of 40.0-44.9, adult ([facility]) Nocturnal hypoxemia Nonsmoker OAB (overactive bladder) Obesity JOSE M (obstructive sleep apnea) Postoperative urinary retention Primary osteoarthritis of left knee Seasonal allergies Type 2 diabetes mellitus with diabetic polyneuropathy, with long-term current use of insulin ([facility]) Type 2 diabetes mellitus with hyperglycemia, with long-term current use of insulin ([facility]) Type 2 diabetes mellitus without complication ([facility]) Vitamin D deficiency Social History Tobacco [...] 12/29/2017 Diagnostic laparoscopy LAPAROTOMY OVARIAN CYSTECTOMY 03/31/2023 [place] ARTHROCENTESIS ASPIR&/INJ MAJOR JT/BURSA W/O US Right [...] reviewed, and patient is to proceed to [facility] OR. Follow Up: Patient is to follow up between 1-2 weeks post operative to assess proper healing and recovery fromprocedure. Documented by Arlene Mullen LPN on behalf of: Feliz Benz DO documented in this encounterUniversity of [facility] Children's [id number] Miscellaneous Notes* Telephone Encounter - MOIZ Andrew - 05/14/2025 2:38 PM EDT Updated oxygen therapy order, home oxygen evaluation results, and office note faxed directly to [facility] Fitness Attendant Valeriy and Program Director Substance Abuse Linda via email. documented in this [facility]Norwalk [facility]09-[facility] Telephone encounter Note* Telephone Encounter - MOIZ Andrew - 05/14/2025 2:38 PM EDT Updated oxygen therapy order, home oxygen evaluation results, and office note faxed directly to [facility] Fitness Attendant Valeriy and Program Director Substance Abuse Linda via email. [facility] SnapAppointments [id number] History of Present illness Narrative* Pacheco Madrigal APRN-OPERATING SYSTEMS SPECIALIST - 05/14/2025 12:00 PM EDT Chief Complaint: [...] plans to get a hold of her [employer] to pick it up. She denies any [...] min Stress: No Stress Concern Present (12/20/2023) [employer] [facility] [employer] - Occupational Stress Questionnaire [...] office a call. CC: MD Pacheco BULL [facility] Physicians Pulmonary & Sleep Specialists Office: [phone] 12:12 PM on 05/14/2025 This note is dictated with the use of M*Modal.Please note that this dictation was completed with computer voice recognition software. Quite often unanticipated grammatical, syntax, homophones, and other interpretive errors are inadvertently transcribed by the computer software. Please disregard these errors. Please excuse any errors that have escaped final proofreading. DUSTIN Quarles 05/14/25 1217 documented in this encounterNorwalk Memorial Hospital09-10-2025 Instructions* Patient Instructions* DUSTIN Quarles - 05/14/2025 12:00 PM EDT If you re looking for general health and wellness resources, please visit [email or web address]. documented in this encounterNorwalk Memorial Hospital09-03-2025 History of Present illness Narrative* Shania [...] PAP therapy at nighttime. documented in this encounterNorwalk Memorial Hospital09-03-2025 Miscellaneous Notes* Telephone Encounter - MOIZ [...] MOIZ Andrew - 05/07/2025 4:35 PM EDT [facility] called patient and asked if patient used her PAP therapy during her Home O2 Evaluation, patient stated that she did not as she does not have a table next to her bed to set it on. * Telephone Encounter - MOIZ Andrew - 05/07/2025 4:35 PM EDT [facility] called [facility] and spoke with Autumn to confirm that the updated oxygen order needs to include the bleed-in adapter in the equipment, Autumn confirmed that the bleed-in adapter does need audrey included on the order. Autumn had asked if patient had an office visit within the last 30 days prior to her testing, production underwriter stated that patient had not been seen since 03/13/2025, Autumn stated thatthe testing would not be good and that patient needs to be seen prior to testing for insurance to accept. [facility] called [facility] and spoke with Robe, per Robe, they will take the order with the updated testing as long as patient was seen within the last 12 months. Robe did state that patient has used them in the past and does owe them $399 however they can set up a payment plan with patient if she chooses to switch. [facility] spoke with MERLIN via phone and explained the information above to see if she could see patient on 05/14/2025 when she is back in the [place] location. Per MERLIN, she is willing to see patient to provide updated office note to support patient's recent home O2 evaluation. [facility] called dahiana (Program Director Substance Abuse) with [facility] asking her to look into this and to confirm if patient needs an appointment or if her office notes from 03/13/2025 are sufficient, Dahiana stated that she would get back with our office as soon as possible to help resolve this issue. [facility] called patient and in formed her of all the information above, patient understands what her options are, patient stated that she is unsure if she can get a ride to the appointment on Monday but stated that she would call us back once knows, production underwriter verbalized understanding and held spot for patient on 05/14/2025 at noon. * Telephone Encounter - MOIZ Andrew - 05/07/2025 4:35 PM EDT Updated oxygen therapy order, home oxygen evaluation results, and office note faxed directly to [facility]'s Fitness Attendant Valeriy and Program Director Substance Abuse Dahiana via email. documented in this encounterNorwalk Memorial Hospital09-03-2025 Telephone encounter Note* Telephone Encounter - [...] 3:51 PM EDT To: Lindsay Arrieta DO [employer] [facility] [employer] [id number] Telephone encounter Note* Telephone Encounter - MOIZ Andrew - 05/07/2025 4:35 PM EDT [facility] called patient and asked if patient used her PAP therapy during her Home O2 Evaluation, patient stated that she did not as she does not have a table next to her bed to set it on. [facility] Telephone encounter Note* Telephone Encounter - MOIZ Andrew - 05/07/2025 4:35 PM EDT [facility] called [facility] and spoke with Autumn to confirm that the updated oxygen order needs to include the bleed-in adapter in the equipment, Autumn confirmed that the bleed-in adapter does need audrey included on the order. Autumn had asked if patient had an office visit within the last 30 days prior to her testing, production underwriter stated that patient had not been seen since 03/13/2025, Autumn stated thatthe testing would not be good and that patient needs to be seen prior to testing for insurance to accept. [facility] called [facility] and spoke with Robe, per Robe, they will take the order with the updated testing as long as patient was seen within the last 12 months. Robe did state that patient has used them in the past and does owe them $399 however they can set up a payment plan with patient if she chooses to switch. [facility] spoke with SK via phone and explained the information above to see if she could see patient on 05/14/2025 when she is back in the [place] location. Per , she is willing to see patient to provide updated office note to support patient's recent home O2 evaluation. [facility] called dahiana (Program Director Substance Abuse) with [facility] asking her to look into this and to confirm if patient needs an appointment or if her office notes from 03/13/2025 are sufficient, Dahiana stated that she would get back with our office as soon as possible to help resolve this issue. [facility] called patient and in formed her of all the information above, patient understands what her options are, patient stated that she is unsure if she can get a ride to the appointment on Monday but stated that she would call us back once knows, production underwriter verbalized understanding and held spot for patient on 05/14/2025 at noon. [facility] Telephone encounter Note* Telephone Encounter - MOIZ Andrew - 05/07/2025 4:35 PM EDT Updated oxygen therapy order, home oxygen evaluation results, and office note faxed directly to [facility]'s Fitness Attendant Valeriy and Program Director Substance Abuse Dahiana via email. [facility] [id number] Miscellaneous Notes* Telephone Encounter - MOIZ Andrew - 05/01/2025 1:01 PM EDT [facility] called patient and informed her that per [facility], they need updated testing for patientto continue her oxygen therapy, production underwriter provided patient with [facility] Monitor Program Homo Pulse Ox Testing contact information. Patient verbalized understanding. Patient had stated that at her last visit on 03/13/2025, SE had mentioned that patient should be using a nebulizer, patient reports that she does not have a nebulizer and needs an order for one alongwith the medication to be sent to [facility], production underwriter informed patient that SE is out [...] Nebulizer order and supportive documentation faxed to [facility]. documented in this encounterNorwalk Memorial Hospital08-28-2025 Telephone encounter Note* Telephone Encounter - MOIZ Andrew - 05/01/2025 1:01 PM EDT [facility] called patient and informed her that per [facility], they need updated testing for patientto continue her oxygen therapy, production underwriter provided patient with [facility] Monitor Program Homo Pulse Ox Testing contact information. Patient verbalized understanding. Patient had stated that at her last visit on 03/13/2025, SE had mentioned that patient should be using a nebulizer, patient reports that she does not have a nebulizer and needs an order for one alongwith the medication to be sent to [facility], production underwriter informed patient that SE is out of theoffice this afternoon however a message would be sent to her to review when she returns, patient verbalized understanding. [facility]08-28-20[facility] Telephone encounter Note* Telephone Encounter - Lindsay Arrieta DO - 05/01/2025 1:01 PM EDT Patient stated at last visit that she had a nebulizer and plenty of aerosols which was emphasized. If she does not have will need home nebulizer and solution. [facility]08-28-20[facility] Telephone encounter Note* Telephone Encounter - MOIZ Andrew - 05/01/2025 1:01 PM EDT Nebulizer order and supportive documentation faxed to [facility]. [facility]08-[facility]-20[facility] Telephone encounter Note* Telephone Encounter - [...] asking what we recommend now. Please advise [facility] [id number] Miscellaneous Notes* Telephone Encounter - Tracy Olivera [...] recommend now. Please advise documented in this encounterUniversity of Missouri Children's [id number] History of Present illness Narrative* Jr. Harinder [...] (CELEXA) 40 mg, Oral, Daily Continuous Glucose Options Advisor (FreeStyle Crystal 3 [place]) device 1 Application, Does not apply, Continuous Continuous Glucose Sensor (FreeStyle Crystal 3 Sensor) [facility] USE TO MONITOR BLOOD SUGAR DIRECTED. CHANGE [...] UNITS DAILY* insulin pen needle (Droplet Pen Melfa) 32G x 4 mm [facility] Use as instructed lamoTRIgine (LAMICTAL) 200 mg, [...] Use: Not At Risk (12/20/2023) Received from [facility] [employer] [facility] Frequency of Alcohol Consumption: Never Average [...] mamta left knee. We have talked her work station support specialist to ensure that she signs her own [...] for requiring urgent evaluation. documented in this encounterUniversity of Missouri Children's [id number] History of Present illness Narrative* Romana Whitmore [...] (CELEXA) 40 mg, Oral, Daily Continuous Glucose Options Advisor (FreeStyle Crystal 3 [place]) device 1 Application, Does not apply, Continuous Continuous Glucose Sensor (FreeStyle Crystal 3 Sensor) [facility] USE TO MONITOR BLOOD SUGAR DIRECTED. CHANGE [...] UNITS DAILY* insulin pen needle (Droplet Pen Melfa) 32G x 4 mm misc Use as [...] heart failure with preserved ejection fraction (HFpEF) ([facility]) 04/06/2023 Equinus deformity of left foot 04/06/2023 Gastroesophageal reflux disease 04/06/2023 Genital warts 04/06/2023 Hot flashes due to menopause 04/06/2023 Type 2 diabetes mellitus with microalbuminuria, with long-term current use of insulin ([facility]) 04/06/2023 Internal derangement of left shoulder 04/06/2023 Irritable bowel syndrome with diarrhea 04/06/2023 Mild developmental delay 09/29/2021 Migraine without aura and without status migrainosus, not intractable 04/06/2023 Mild episode of recurrent major depressive disorder 04/06/2023 Class 3 severe obesity due to excess calories with serious comorbidity and body mass index (BMI) of40.0 to 44.9 in adult ([facility]) 11/21/2022 Type 2 diabetes mellitus with polyneuropathy ([facility]) 06/10/2021 Obstructive sleep apnea syndrome 09/30/2009 Osteoarthritis of knee 04/06/2023 Overactive bladder 04/06/2023 Panic disorder without agoraphobia 11/12/2009 Dyslipidemia 04/22/2010 Spondylosis without myelopathy 08/10/2010 Obesity hypoventilation syndrome ([facility]) 01/04/2024 Benign essential hypertension 01/04/2024 Right carpal tunnel syndrome 01/04/2024 Type 2 diabetes mellitus with hyperglycemia, with long-term current use of insulin ([facility]) 02/12/2024 Moderate persistent asthma without complication ([facility]) 02/19/2024 Pulmonary hypertension ([facility]) 08/06/2024 Dehydration 10/28/2024 Nausea & vomiting 10/28/2024 Encounter for long-term (current) use of medications 02/10/2025 Resolved Ambulatory Problems Diagnosis Date Noted Acute kidney injury (DREW) with acute tubular necrosis (ATN) 09/30/2021 Acute pain of left shoulder 04/06/2023 Shoulder joint pain 04/06/2021 Carpal tunnel syndrome of left wrist 04/06/2023 Convulsions in the ([facility]) 09/30/2009 Cubital tunnel syndrome on left 11/04/2022 Fecal incontinence 06/22/2016 High anion gap metabolic acidosis 09/30/2021 Hyperglycemia 03/01/2019 Mild intellectual disability 09/30/2009 Other chronic pain 04/06/2023 Pneumonia due to infectious organism 09/29/2021 Poorly controlled diabetes mellitus ([facility]) 08/10/2015 Normal gynecologic examination 06/09/2015 Missed period 04/06/2023 DKA, type 1, not at goal ([facility]) 09/27/2021 Type 2 diabetes mellitus ([facility]) 09/30/2009 Cavitary lesion of lung 08/10/2023 Other chest pain 08/10/2023 Hypoxia 01/04/2024 Chronic hypoxic respiratory failure (HCC) 02/19/2024 Acute pain of right knee 05/29/2024 Past Medical History: Diagnosis Date Ankle fracture Anxiety and depression At low risk for fall Bilateral leg edema Chest pain, central Chronic left shoulder pain Chronic pain Chronic respiratory failure ([facility]) Epilepsy ([facility]) GERD (gastroesophageal reflux disease) History of being hospitalized History of medical problems Hyperlipidemia Insomnia, persistent MDD (major depressive disorder), recurrent episode, mild Morbid obesity with BMI of 40.0-44.9, adult ([facility]) Nocturnal hypoxemia Nonsmoker OAB (overactive bladder) Obesity JOSE M (obstructive sleep apnea) Postoperative urinary retention Primary osteoarthritis of left knee Seasonal allergies Type 2 diabetes mellitus with diabetic polyneuropathy, with long-term current use of insulin ([facility]) Type 2 diabetes mellitus without complication ([facility]) Vitamin D deficiency HISTORY PAST MEDICAL HISTORY SOCIAL HISTORY Past Medical History: Diagnosis Date Ankle fracture Anxiety and depression At low risk for fall Bilateral leg edema Chest pain, central Chronic left shoulder pain Chronic pain Chronic respiratory failure ([facility]) Dyslipidemia Epilepsy ([facility]) Childhood epilepsy JOHN (generalized anxiety disorder) Genital warts GERD (gastroesophageal reflux disease) History of being hospitalized pneumonia, diabetes, infection [10/29/21-11/05/21] History of medical problems mild mental retardation Hyperlipidemia Insomnia, persistent Irritable bowel syndrome with diarrhea MDD (major depressive disorder), recurrent episode, mild Migraine without aura and without status migrainosus, not intractable Morbid obesity with BMI of 40.0-44.9, adult ([facility]) Nocturnal hypoxemia Nonsmoker OAB (overactive bladder) Obesity JOSE M (obstructive sleep apnea) Postoperative urinary retention Primary osteoarthritis of left knee Seasonal allergies Type 2 diabetes mellitus with diabetic polyneuropathy, with long-term current use of insulin ([facility]) Type 2 diabetes mellitus with hyperglycemia, with long-term current use of insulin ([facility]) Type 2 diabetes mellitus without complication ([facility]) Vitamin D deficiency Social History Tobacco [...] 12/29/2017 Diagnostic laparoscopy LAPAROTOMY OVARIAN CYSTECTOMY 03/31/2023 [place] ARTHROCENTESIS ASPIR&/INJ MAJOR JT/BURSA W/O US Right [...] nursing note reviewed. Exam conducted with a key sander present. Vitals: Estimated body mass index is [...] genital warts. Patient to setup date with Mortgage Operations Manager prior to leaving office today. Documented by Romana Whitmore NP on behalf of: Feliz Benz DO documented in this [facility]08-04-2025 Telephone encounter Note* Telephone Encounter - Mila Cavanaugh - 04/07/2025 8:02 AM EDT She called and lm noting not feeling well this morning; she cx her PT for today. [facility] [id number] Miscellaneous Notes* Telephone Encounter - Mila Cavanaugh - 04/07/2025 8:02 AM EDT She called and lm noting not feeling well this morning; she cx her PT for today. documented in this [facility]07-25-2025 Telephone encounter Note* Telephone Encounter - UYEN [...] call back with any more issues. [facility] [id number] Miscellaneous Notes* Telephone Encounter - UYEN Glover [...] stating she has physical therapy today in [place]. This would be the third session. She fels she cannot do it. She is in a lot of pain after. [phone] * Telephone Encounter - ROSAURA Rosado - [...] Jackson April 22, 2025. documented in this encounterUniversity of Missouri Children's [id number] Telephone encounter Note* Telephone Encounter - Renetta Ferris MA - 03/28/2025 12:[address] Jackson said that if that knee does need surgery, he is unable to do surgery until that knee is moving. He strongly advises that she goes to physical therapy. [facility] HospitalYnsbolnljs17-69-1374 Telephone encounter Note* Telephone Encounter - Mila Cavanaugh - 03/28/2025 9:36 AM EDT She called noting she has a call into Dr. Jackson, due to when she has completed PT so far, she feels 2x's worse than when she started. Pending call back, she said she'll keep her next PT scheduled 04/02; will contact if cx is needed. [facility] [id number] Miscellaneous Notes* Telephone Encounter - Mila Cavanaugh - 03/28/2025 9:36 AM EDT She called noting she has a call into Dr. Jackson, due to when she has completed PT so far, she feels 2x's worse than when she started. Pending call back, she said she'll keep her next PT scheduled 04/02; will contact if cx is needed. documented in this encounterUniversity of Missouri Children's [id number] Telephone encounter Note* Telephone Encounter - Jessenia Donnelly - 03/28/2025 9:31 AM EDT Patient called stating she has physical therapy today in [place]. This would be the third session. She fels she cannot do it. She is in a lot of pain after. [phone] [facility] HospitalVvhperzpet43-40-3485 Telephone encounter Note* Telephone Encounter - ROSAURA Rosado - 03/27/2025 6:35 PM EDT Renetta & Dr. Jackson, It sounds like this pt is not tolerating recommend therapy for her knee,Possible scope? Any recommendations.? [facility] Work Phone: [phone] 708-195507-24-2025 Telephone encounter Note* Telephone Encounter - Tracy [...] with Dr. Jackson April 22, 2025. [facility] [id number] Miscellaneous Notes* Telephone Encounter - OMIZ Andrew - 03/24/2025 9:26 AM EDT Patient called office requesting a refill of her Trelegy 200 to be sent to [facility], production underwriter asked patient to confirm the phone number for [facility] as two [facility] are listed inher chart patient confirmed phone number for the pharmacy located in [place]. documented in this encounterNorwalk [facility]07-21-[facility]25 Telephone encounter Note* Telephone Encounter - MOIZ Andrew - 03/24/2025 9:26 AM EDT Patient called office requesting a refill of her Trelegy 200 to be sent to [facility], production underwriter asked patient to confirm the phone number for [facility] as two [facility] are listed inher chart patient confirmed phone number for the pharmacy located in [place]. [facility]07-14-2025 History of Present illness Narrative* Arlene Mullen, PROMOTION MANAGER - 03/17/2025 2:30 PM EDT Reason for [...] (CELEXA) 40 mg, Oral, Daily Continuous Glucose Options Advisor (FreeStyle Crystal 3 [place]) device 1 Application, Does not apply, Continuous Continuous Glucose Sensor (FreeStyle Crystal 3 Sensor) [facility] USE TO MONITOR BLOOD SUGAR DIRECTED. CHANGE [...] UNITS DAILY* insulin pen needle (Droplet Pen Melfa) 32G x 4 mm [facility] Use as instructed lamoTRIgine (LAMICTAL) 200 mg, [...] heart failure with preserved ejection fraction (HFpEF) ([facility]) 04/06/2023 Equinus deformity of left foot 04/06/2023 Gastroesophageal reflux disease 04/06/2023 Genital warts 04/06/2023 Hot flashes due to menopause 04/06/2023 Type 2 diabetes mellitus with microalbuminuria, with long-term current use of insulin ([facility]) 04/06/2023 Internal derangement of left shoulder 04/06/2023 Irritable bowel syndrome with diarrhea 04/06/2023 Mild developmental delay 09/29/2021 Migraine without aura and without status migrainosus, not intractable 04/06/2023 Mild episode of recurrent major depressive disorder 04/06/2023 Class 3 severe obesity due to excess calories with serious comorbidity and body mass index (BMI) of40.0 to 44.9 in adult ([facility]) 11/21/2022 Type 2 diabetes mellitus with polyneuropathy ([facility]) 06/10/2021 Obstructive sleep apnea syndrome 09/30/2009 Osteoarthritis of knee 04/06/2023 Overactive bladder 04/06/2023 Panic disorder without agoraphobia 11/12/2009 Dyslipidemia 04/22/2010 Spondylosis without myelopathy 08/10/2010 Obesity hypoventilation syndrome ([facility]) 01/04/2024 Benign essential hypertension 01/04/2024 Right carpal tunnel syndrome 01/04/2024 Type 2 diabetes mellitus with hyperglycemia, with long-term current use of insulin ([facility]) 02/12/2024 Moderate persistent asthma without complication ([facility]) 02/19/2024 Pulmonary hypertension ([facility]) 08/06/2024 Dehydration 10/28/2024 Nausea & vomiting 10/28/2024 Encounter for long-term (current) use of medications 02/10/2025 Resolved Ambulatory Problems Diagnosis Date Noted Acute kidney injury (DREW) with acute tubular necrosis (ATN) 09/30/2021 Acute pain of left shoulder 04/06/2023 Shoulder joint pain 04/06/2021 Carpal tunnel syndrome of left wrist 04/06/2023 Convulsions in the ([facility]) 09/30/2009 Cubital tunnel syndrome on left 11/04/2022 Fecal incontinence 06/22/2016 High anion gap metabolic acidosis 09/30/2021 Hyperglycemia 03/01/2019 Mild intellectual disability 09/30/2009 Other chronic pain 04/06/2023 Pneumonia due to infectious organism 09/29/2021 Poorly controlled diabetes mellitus ([facility]) 08/10/2015 Normal gynecologic examination 06/09/2015 Missed period 04/06/2023 DKA, type 1, not at goal ([facility]) 09/27/2021 Type 2 diabetes mellitus ([facility]) 09/30/2009 Cavitary lesion of lung 08/10/2023 Other chest pain 08/10/2023 Hypoxia 01/04/2024 Chronic hypoxic respiratory failure ([facility]) 02/19/2024 Acute pain of right knee 05/29/2024 Past Medical History: Diagnosis Date Ankle fracture Anxiety and depression At low risk for fall Bilateral leg edema Chest pain, central Chronic left shoulder pain Chronic pain Chronic respiratory failure ([facility]) Epilepsy ([facility]) GERD (gastroesophageal reflux disease) History of being hospitalized History of medical problems Hyperlipidemia Insomnia, persistent MDD (major depressive disorder), recurrent episode, mild Morbid obesity with BMI of 40.0-44.9, adult ([facility]) Nocturnal hypoxemia Nonsmoker OAB (overactive bladder) Obesity JOSE M (obstructive sleep apnea) Postoperative urinary retention Primary osteoarthritis of left knee Seasonal allergies Type 2 diabetes mellitus with diabetic polyneuropathy, with long-term current use of insulin ([facility]) Type 2 diabetes mellitus without complication ([facility]) Vitamin D deficiency HISTORY PAST MEDICAL HISTORY SOCIAL HISTORY Past Medical History: Diagnosis Date Ankle fracture Anxiety and depression At low risk for fall Bilateral leg edema Chest pain, central Chronic left shoulder pain Chronic pain Chronic respiratory failure (HCC) Dyslipidemia Epilepsy ([facility]) Childhood epilepsy JOHN (generalized anxiety disorder) Genital warts GERD (gastroesophageal reflux disease) History of being hospitalized pneumonia, diabetes, infection [10/29/21-11/05/21] History of medical problems mild mental retardation Hyperlipidemia Insomnia, persistent Irritable bowel syndrome with diarrhea MDD (major depressive disorder), recurrent episode, mild Migraine without aura and without status migrainosus, not intractable Morbid obesity with BMI of 40.0-44.9, adult ([facility]) Nocturnal hypoxemia Nonsmoker OAB (overactive bladder) Obesity JOSE M (obstructive sleep apnea) Postoperative urinary retention Primary osteoarthritis of left knee Seasonal allergies Type 2 diabetes mellitus with diabetic polyneuropathy, with long-term current use of insulin ([facility]) Type 2 diabetes mellitus with hyperglycemia, with long-term current use of insulin ([facility]) Type 2 diabetes mellitus without complication ([facility]) Vitamin D deficiency Social History Tobacco [...] 12/29/2017 Diagnostic laparoscopy LAPAROTOMY OVARIAN CYSTECTOMY 03/31/2023 [place] ARTHROCENTESIS ASPIR&/INJ MAJOR JT/BURSA W/O US Right [...] nursing note reviewed. Exam conducted with a key sander present. Vitals: Estimated body mass index is [...] of: Feliz Benz DO documented in this encounterUniversity of Missouri Children's [id number] History of Present illness Narrative* Jr. Harinder Jackson DO - 03/14/2025 11:30 AM EDT Images from the original note were not included. HISTORY OF PRESENT ILLNESS: EST PT Carissa Santos is an 44 y.o. @ female. (EST PT) - RECHECK LT KNEE PAIN - S/P MRI DONE AT [facility] ON 03/04/25 XRAY LT KNEE EPIC 02/25/25 [...] (CELEXA) 40 mg, Oral, Daily Continuous Glucose Options Advisor (FreeStyle Crystal 3 [place]) device 1 Application, Does not apply, Continuous Continuous Glucose Sensor (FreeStyle Crystal 3 Sensor) [facility] USE TO MONITOR BLOOD SUGAR DIRECTED. CHANGE [...] UNITS DAILY* insulin pen needle (Droplet Pen Melfa) 32G x 4 mm [facility] Use as instructed lamoTRIgine (LAMICTAL) 200 mg, [...] stress grade: normal Anterior drawer: normal Medial aMrianne test: positive Lateral Marianne test: positive Neurovascular [...] Use: Not At Risk (12/20/2023) Received from [facility] Frequency of Alcohol Consumption: Never Average [...] for requiring urgent evaluation. documented in this encounterUniversity of [facility] Children's [id number] Miscellaneous Notes* Telephone Encounter - MOIZ Andrew - 03/13/2025 10:02 AM EDT Research Center Partner called [facility] and spoke with Autumn, production underwriter asked Autumn to verify if patient qualified for POC, per Autumn, Medicaid does not cover POCs. Research Center Partner verbalized understanding. documented in this encounterNorwalk [facility] Hospital07-10-2025 Telephone encounter Note* Telephone Encounter - MOIZ Andrew - 03/13/2025 10:02 AM EDT Research Center Partner called [facility] and spoke with Autumn, production underwriter asked Autumn to verify if patient qualified for POC, per Autumn, Medicaid does not cover POCs. Research Center Partner verbalized understanding. [facility]07-10-2025 History of Present illness Narrative* MOIZ Andrew - 03/13/2025 9:30 AM EDT Images from the original note were not included. * Lindsay Arrieta DO - 03/13/2025 9:30 AM EDT Images from the original note were not included. [facility] Pulmonary And Sleep Progress Note Patient [...] exercise program advised Will reach out to [facility] and inquire regarding POC and if [...] PFT Results Radiology Dr. Lindsay Arrieta DO. [facility] Pulmonary & Critical Care Office: [phone] documented in this encounterNorwalk Memorial Hospital07-08-2025 Miscellaneous Notes* Telephone Encounter - Chinyere Fisher - 03/11/2025 2:33 PM EDT Patient LVM w/no information. Research Center Partner LVM for patient to call back. documented in this encounterNorwalk Memorial Hospital07-08-2025 Telephone encounter Note* Telephone Encounter - Chinyere Fisher - 03/11/2025 2:33 PM EDT Patient LVM w/no information. Research Center Partner LVM for patient to call back. [facility]07-02-2025 Miscellaneous Notes* Telephone Encounter - Chinyere Fisher - 03/05/2025 9:23 AM EDT [facility] [place] [address] New referral received by [facility] Medication Management for diabetes. Patient was contacted to schedule appointment at [facility]ication [facility] [place] ([facility]). This was my first attempt to reach the patient and was able to schedule the patient on 03/20 at 1:30 . Patient willbe asked to bring PPMM Additional Info: Medication List, Blood Glucose Meter, and Blood Sugar Log. Referral added to spreadsheet. Referring provider: Katelyn Recio MD * Telephone Encounter - Chinyere Fisher - 03/05/2025 9:23 AM EDT Patient's nurse case management, Gosia, called to ask if patient's PCP can be kept in the loop on patient's appts since the referral came from cardiology. Research Center Partner confirmed that PCP is Diaz Dalton and advised that PPMM will keep him in the loop. Per conversation with [facility], DM referral should come from PCP anyway. Research Center Partner sent referral and renewal CA to PCP. documented in this encounterNorwalk Memorial Hospital07-02-2025 Telephone encounter Note* Telephone Encounter - Chinyere Fisher - 03/05/2025 9:23 AM EDT [facility]NAG[facility] [address] [address] New referral received by [facility] Medication Management for diabetes. Patient was contacted to schedule appointment at [facility] [place] ([facility]). This was my first attempt to reach the patient and was able to schedule the patient on 03/20 at 1:30 . Patient willbe asked to bring PPMM Additional Info: Medication List, Blood Glucose Meter, and Blood Sugar Log. Referral added to spreadsheet. Referring provider: Katelyn Recio MD [facility]07-02-2025 Telephone encounter Note* Telephone Encounter - Chinyere Fisher - 03/05/2025 9:23 AM EDT Patient's nurse case management, Gosia, called to ask if patient's PCP can be kept in the loop on patient's appts since the referral came from cardiology. Research Center Partner confirmed that PCP is Diaz Dalton and advised that PPMM will keep him in the loop. Per conversation with [facility] DM referral should come from PCP anyway. Research Center Partner sent referral and renewal CA to PCP. [facility]07-02-2025 Telephone encounter Note* Telephone Encounter - ROSAURA Rosado - 03/05/2025 7:59 AM EDT Reviewed MRI, Possible Meniscus tear. No fracture... I want her to see Dr. Jackson for eval, keira pain and symptoms... please cancel appt with me and schedule with Dr. Jackson within the next week or 2 [facility] HospitalCtngxbomra74-67-9033 Miscellaneous Notes* Telephone Encounter - ROSAURA Rosado [...] she said that she hasn't heard from [facility] for the MRI yet, I told her [...] is so bad. Please advise she uses [facility] documented in this encounterUniversity of Missouri Children's HospitalViyuaorxxp97-48-4513 Miscellaneous Notes* Telephone Encounter - Jorge L Givens RN - 03/05/2025 7:11 AM EDT Images from the original note were not included. * Telephone Encounter - Jorge L Givens RN - 03/05/2025 7:11 AM EDT LMOM for pts nurse case management Gosia (ok-[email or web address]) to update on LLDs PPMM recommendation. Research Center Partner asked for r/c to office for any further questions. documented in this encounterNorwalk Memorial Hospital07-02-2025 Telephone encounter Note* Telephone Encounter - Jorge L Givens RN - 03/05/2025 7:11 AM EDT Images from the original note were not included. [place] [id number] Telephone encounter Note* Telephone Encounter - Jorge L Givens RN - 03/05/2025 7:11 AM EDT LMOM for pts nurse case management Gosia ([email or web address]-[email or web address]) to update on LLDs PPMM recommendation. Research Center Partner asked for r/c to office for any further questions. [facility]06-27-2025 Telephone encounter Note* Telephone Encounter - Tracyher Olivera - 02/28/2025 10:35 AM EDT I called Carissa and explained to her that we didn't want to use narcotics at this time, but she cantake 600 mg Mortrin 3x a day and supp with Tylenol between. Advise Non weight bearing on that leg until we got the MRI, she said that she hasn't heard from [facility] for the MRI yet, I told her to give them a call and see if she can get that started. She said she will call them, told if she had any other questions or needed anything that we were here until 3:00pm today [facility] [id number] Telephone encounter Note* Telephone Encounter - ROSAURA [...] fever develops or symptoms worsen recommend ER. [facility] HospitalTacmcwkkme86-23-0367 Telephone encounter Note* Telephone Encounter - Tracy Olivera - 02/27/2025 8:32 AM EDT Carissa was here 02/25/25 seen Cullen, she called this morning wanting to know if we could call her insomething for pain, she said that she can't sleep her pain is so bad. Please advise she uses [facility] [id number] History of Present illness Narrative* ROSAURA Rosado [...] IV contrast MRI LT knee w/o at [facility]. Orbits if needed. please push images to [facility] pacs Standing Status: Future Expected Date: [...] requiring urgent evaluation. Visit was preformed using [employer] flight check pilot speech recognition. documented in this encounterUniversity of Missouri Children's HospitalIbyzfpnjld15-44-9812 Miscellaneous Notes* Telephone Encounter - MOIZ Andrew - 02/25/2025 11:07 AM EDT Images from the original note were not included. Patient called and stated that she needed a PA for her Trelegy, production underwriter initiated PA through covermymeds. PA came back denied for Trelegy 200. * Telephone Encounter - MOIZ Andrew - 02/25/2025 11:07 AM EDT Images from the original note were not included. Reinitiated PA through Epic, PA for Trelegy 200 approved. * Telephone Encounter - Lindsay Arrieta DO - 02/25/2025 11:07 AM EDT Great thanks documented in this encounterNorwalk Memorial Hospital06-24-2025 Telephone encounter Note* Telephone Encounter - MOIZ Andrew - 02/25/2025 11:07 AM EDT Images from the original note were not included. Patient called and stated that she needed a PA for her Trelegy, production underwriter initiated PA through covermymeds. PA came back denied for Trelegy 200. [facility]06-24-2025 Telephone encounter Note* Telephone Encounter - MOIZ Andrew - 02/25/2025 11:07 AM EDT Images from the original note were not included. Reinitiated PA through Epic, PA for Trelegy 200 approved. [facility]06-24-2025 Telephone encounter Note* Telephone Encounter - Lindsay Arrieta DO - 02/25/2025 11:07 AM EDT Great thanks [facility]06-16-2025 Miscellaneous Notes* Telephone Encounter - MOIZ Andrew - 02/17/2025 10:36 AM EDT Patient called office and stated that she only has 2 weeks left on her Trelegy 200, patient is requesting a refill as she does not see SE until 03/13/2025. Patient is requesting that the Rx be sent to [facility] [place]. Please review and advise. * Telephone [...] MOIZ Andrew - 02/17/2025 10:36 AM EDT Research Center Partner called patient and informed her that Rx was sent to pharmacy and that she would have enough to get her through until her appointment, patient verbalized understanding. documented in this encounterNorwalk Memorial Hospital06-16-2025 Telephone encounter Note* Telephone Encounter - MOIZ Andrew - 02/17/2025 10:36 AM EDT Patient called office and stated that she only has 2 weeks left on her Trelegy 200, patient is requesting a refill as she does not see SE until 03/13/2025. Patient is requesting that the Rx be sent to [facility] [place]. Please review and advise. [facility]06-16-[facility] Telephone encounter Note* Telephone Encounter - Lindsay Arrieta DO - 02/17/2025 10:36 AM EDT Okay to send refills [facility]06-16-2025 Telephone encounter Note* Telephone Encounter - Stella Reyes RN - 02/17/2025 10:36 AM EDT Script sent to get patient to office appt on 03-13-25. At office appt, will need to discuss additional refills with physician. Silvia - please call patient and notify. [facility]06-16-2025 Telephone encounter Note* Telephone Encounter - MOIZ Andrew - 02/17/2025 10:36 AM EDT Research Center Partner called patient and informed her that Rx was sent to pharmacy and that she would have enough to get her through until her appointment, patient verbalized understanding. [facility]06-09-20[facility] History of Present illness Narrative* Diaz Dalton MD - 02/10/2025 2:01 PM EDTAssociated Problem(s): Type 2 diabetes mellitus with hyperglycemia, with long-term current use of insulin ([facility]) BS elevated and increase semglee to [...] Depression recently worse. Moved and found out [id number] . Down, sad, and crying. Not want [...] Addressed This Visit JOHN (generalized anxiety disorder) ([facility]) Symptoms worse and increase celexa. Warned will take 2-3 weeks to notice improvement in mood. Use ativan PRN. Relevant Medications LORazepam (Ativan) 1 MG tablet Chronic heart failure with preserved ejection fraction (HFpEF) ([facility]) Edema stable and continue lasix. Type 2 diabetes mellitus with microalbuminuria, with long-term current use of insulin ([facility]) Mild episode of recurrent major depressive disorder (HCC) ([facility]) Symptoms worse and increase celexa. Warned will take 2-3 weeks to notice improvement in mood. Relevant Medications citalopram (CeleXA) 40 MG tablet Class 3 severe obesity due to excess calories with serious comorbidity and body mass index (BMI) of40.0 to 44.9 in adult Weight loss indicated. Relevant Orders TSH Osteoarthritis of knee Unsteady when moving and script for rolling walker to patient. Dyslipidemia ([facility]) Relevant Orders Lipid panel Benign essential hypertension ([facility]) BP controlled and monitor PRN. Relevant Orders Basic metabolic panel Type 2 diabetes mellitus with hyperglycemia, with long-term current use of insulin ([facility]) - Primary BS elevated and increase semglee to 20 units BID. Resume moujaro. Relevant Medications insulin glargine (Semglee) 100 UNIT/ML pen Tirzepatide (Mounjaro) 2.5 MG/0.5ML solution auto-injector Other Relevant Orders Microalbumin / creatinine, urine ratio Hemoglobin A1c Encounter for long-term (current) use of medications Relevant Orders CBC and differential Hepatic function panel documented in this encounterUniversity of Missouri Children's [id number] History of Present illness Narrative* Katelyn Recio MD - 01/03/2025 9:15 AM EDT Carissa Santos Date of visit: 01/03/2025 Date of : 1980 Age: 44 y.o. Patient Active Problem List Diagnosis Hyperglycemia Chest wall pain Type 2 diabetes mellitus with hyperglycemia, with long-term current use of insulin ([facility]) Mild developmental delay Obstructive sleep apnea syndrome Hyperlipidemia associated with type 2 diabetes mellitus ([facility]) Abnormal ECG during exercise stress test Mediastinal lymphadenopathy Acute cystitis without hematuria Pulmonary nodule Dyspnea on exertion Moderate persistent asthma without complication Chronic hypoxic respiratory failure ([facility]) BMI 40.0-44.9, adult ([facility]) Pulmonary hypertension ([facility]) COPD (chronic obstructive pulmonary disease) ([facility]) Chronic heart failure with preserved ejection fraction ([facility]) Dyslipidemia Edema Gastroesophageal reflux disease [...] accompanied by her aide, Gosia, from the [facility]/hospice social worker. Today she is unaccompanied CV [...] 06/26/2024 Performed by Harinder Estrella MD at [facility] CHOLECYSTECTOMY COLONOSCOPY 2021 COLONOSCOPY DIAGNOSTIC / SCREENING N/A 09/12/2024 Performed by Ailya Solorzano DO at [facility] ENDOBRONCHIAL ULTRASOUND BRONCHOSCOPY N/A 11/22/2023 Performed by Libby Finley MD at [facility] Right heart cath N/A 06/26/2024 Performed by Harinder Estrella MD at [facility] TONSILLECTOMY TUBAL LIGATION Bilateral [...] min Stress: No Stress Concern Present (12/20/2023) [employer] - Occupational Stress Questionnaire [...] Hyperlipidemia associated with type 2 diabetes mellitus ([facility]) 1. CTA of the coronaries with calcium [...] Referring Physician: Diaz Dalton MD [address] [place] [address] documented in this encounterNorwalk Memorial Hospital05-01-2025 Miscellaneous Notes* Telephone Encounter - Bethanie Patricia CMA - 01/02/2025 1:18 PM EDT Called patient to remind them to bring their most current copy of their medication list with them to their appt. Patient verbalizes understanding. documented in this encounterNorwalk Memorial Hospital05-01-2025 Telephone encounter Note* Telephone Encounter - Bethanie Patricia CMA - 01/02/2025 1:18 PM EDT Called patient to remind them to bring their most current copy of their medication list with them to their appt. Patient verbalizes understanding. [facility]04-07-2025 Miscellaneous Notes* Telephone Encounter - MOIZ Andrew - 12/09/2024 8:23 AM EDT PAP mask and supplies order with supportive documentation faxed to [facility]. documented in this encounterNorwalk Memorial Hospital04-07-2025 Telephone encounter Note* Telephone Encounter - MOIZ Andrew - 12/09/2024 8:23 AM EDT PAP mask and supplies order with supportive documentation faxed to [facility]. [facility]04-02-2025 History of Present illness Narrative* Pacheco [...] History: Diagnosis Date Anxiety Deep vein thrombosis ([facility]) Dental disease no teeth Depression Diabetes mellitus type I ([facility]) Elevated cholesterol GERD (gastroesophageal reflux disease) [...] min Stress: No Stress Concern Present (12/20/2023) [employer] - Occupational Stress Questionnaire [...] of 60-65%. The quantitative EF by 2D Rbush biplane is 65%. Right Ventricle: Right ventricular [...] (3%)=58.3 events/hour; AHI (4%)=38.5 events/hour; Zach SpO2=61.0%; (Vwrsmh=483.0 lbs; BMI=45.5 kg/m2) CPAP 16 cm H20 pressure. DME: [employer] Data card was available for PAP usage data download. PAP compliance is unsatisfactory. Impression: Carissa was seen today for sleep apnea. Diagnoses and all orders for this visit: Obstructive sleep apnea syndrome - PAP Mask and Supplies Noncompliance with CPAP treatment Chronic hypoxic respiratory failure, on home oxygen therapy ([facility]) Obesity, Class III, BMI 40-49.9 (morbid obesity) ([facility]) Chronic hypoxic respiratory failure -2L [...] machine if not completed already. Tax ID: [id number] Scheduling Instructions: Length of Need: 12 months [...] not to drive if sleepy, and to boat puller if sleepiness occurs while driving. Above [...] escaped final proofreading. Pacheco Madrigal [facility] Office: [phone] 10:08 AM on 12/06/2024 CC: MD Pacheco BULL APRN-CNP 12/06/24 1008 documented in this encounterGifford Medical CenterLearnBIG [id number] Instructions* Patient Instructions* DUSTIN Quarles - 12/04/2024 1:00 PM EDT If you re looking for general health and wellness resources, please visit [email or web address]. documented in this encounterNorwalk Memorial Hospital03-06-2025 History of Present illness Narrative* Diaz [...] (BMI) of 40.0 to 44.9 in adult ([facility]) Weight loss indicated. * Diaz Dalton MD - 11/07/2024 10:46 AM ESTAssociated Problem(s): Chronic heart failure with preserved ejection fraction (HFpEF) ([facility]) Continue lasix. * Diaz Dalton MD [...] episode of recurrent major depressive disorder (HCC) ([facility]) Mood controlled with medication and continue. Class 3 severe obesity due to excess calories with serious comorbidity and body mass index (BMI) of40.0 to 44.9 in adult ([facility]) Weight loss indicated. Type 2 diabetes mellitus with hyperglycemia, with long-term current use of insulin (CMS/HCC) - Primary Reports BS occasionally low but A1C 12.8. Continue semglee and increase jardiance. Stick to ADA diet and limit carbs. Relevant Medications empagliflozin (Jardiance) 25 MG Continuous Glucose Options Advisor (FreeStyle Crystal 3 [place]) device documented in this encounterUniversity of Missouri Children's [id number] History of Present illness Narrative* Diaz Dalton [...] (BMI) of 40.0 to 44.9 in adult ([facility]) Weight loss indicated. * Diaz Dalton MD - 10/28/2024 2:54 PM ESTAssociated Problem(s): Type 2 diabetes mellitus with hyperglycemia, with long-term current use of insulin ([facility]) Stop mounjaro and decrease insulin. Check [...] and advised to stop mounjaro. Dose due Monday.[place] weak and lightheaded. To ER and labs [...] hyperglycemia, with long-term current use of insulin ([facility]) Stop mounjaro and decrease insulin. Check A1C. Relevant Medications insulin glargine (Semglee) 100 UNIT/ML pen Other Relevant Orders Hemoglobin A1c Dehydration - Primary Improved after IV fluids and monitor. Continue with increased fluid intake. Nausea & vomiting Use zofran PRN. documented in this encounterUniversity of Missouri Children's [id number] History of Present illness Narrative* Carmen Bowman DPM - 10/09/2024 1:15 PM EST Images from the original note were not included. Subjective Patient ID: Carissa Santos is a 44 y.o. female who presents for Foot Pain (Carissa Santso 44yo. Patient relates her left foot is [...] Diagnosis Date Ankle fracture Anxiety and depression ([facility]) At low risk for fall Bilateral leg edema Chest pain, central Chronic left shoulder pain Chronic pain Chronic respiratory failure ([facility]) Dyslipidemia ([facility]) Epilepsy ([facility]) Childhood epilepsy JOHN (generalized anxiety disorder) ([facility]) Genital warts GERD (gastroesophageal reflux disease) History of being hospitalized pneumonia, diabetes, infection [10/29/21-11/05/21] History of medical problems mild mental retardation Hyperlipidemia ([facility]) Insomnia, persistent Irritable bowel syndrome with diarrhea MDD (major depressive disorder), recurrent episode, mild (HCC) ([facility]) Migraine without aura and without status migrainosus, not intractable ([facility]) Morbid obesity with BMI of 40.0-44.9, adult ([facility]) Nocturnal hypoxemia Nonsmoker OAB (overactive bladder) Obesity JOSE M (obstructive sleep apnea) Postoperative urinary retention Primary osteoarthritis of left knee Seasonal allergies Type 2 diabetes mellitus with diabetic polyneuropathy, with long-term current use of insulin ([facility]) Type 2 diabetes mellitus with hyperglycemia, with long-term current use of insulin ([facility]) Type 2 diabetes mellitus without complication ([facility]) Vitamin D deficiency Medications Current Outpatient [...] Continuous Glucose Sensor (FreeStyle Crystal 3 Sensor) [facility], 1 each every 14 (fourteen) days, Disp: [...] Rfl: 5 insulin pen needle (Droplet Pen Melfa) 32G x 4 mm [facility], USE ONE PEN NEEDLE TO INJECT MEDICATION SIX TIMES A DAY, Disp: 200 each, Rfl: 10 G-Rardrxkneoen-Fwovt-B12-B6 (Metanx) 3-90.314-2-35 MG capsule, Take 3 mg [...] 12/29/2017 Diagnostic laparoscopy LAPAROTOMY OVARIAN CYSTECTOMY 03/31/2023 [place] ARTHROCENTESIS ASPIR&/INJ MAJOR JT/BURSA W/O US Right [...] with type 2 diabetes mellitus (CMS/HCC) E11.42 R-Zmztufqwkjiq-Zkkfm-B12-B6 (Metanx) 3-90.314-2-35 MG capsule 2. Neuritis M79.2 A-Zopefbfisnqq-Xbohp-B12-B6 (Metanx) 3-90.314-2-35 MG capsule Patient examined and [...] today and a prescription was sent to [facility] [employer]. I recommend follow up for at-risk diabetic [...] understanding. Carmen Bowman DPM documented in this encounterUniversity of Missouri Children's [id number] History of Present illness Narrative* Katelyn Recio MD - 10/07/2024 8:15 AM EST Carissa Santos Date of visit: 10/07/2024 Date of : 1980 Age: 44 y.o. Patient Active Problem List Diagnosis Hyperglycemia Chest wall pain Type 2 diabetes mellitus with hyperglycemia, with long-term current use of insulin ([facility]) Mild developmental delay Obstructive sleep apnea syndrome Hyperlipidemia associated with type 2 diabetes mellitus ([facility]) Abnormal ECG during exercise stress test Mediastinal lymphadenopathy Acute cystitis without hematuria Pulmonary nodule Dyspnea on exertion Moderate persistent asthma without complication Chronic hypoxic respiratory failure ([facility]) BMI 40.0-44.9, adult ([facility]) [facility]monary [facility] COPD (chronic obstructive pulmonary disease) ([facility]) Chronic heart failure with preserved ejection fraction ([facility]) Allergies Allergen Reactions Sulfamethoxazole-Trimethoprim Hives, [...] today by her aide, Gosia, from the [facility]/hospice social worker CV TESTING HISTORY: ECHO: Echo [...] 06/26/2024 Performed by Harinder Estrella MD at [facility] CHOLECYSTECTOMY COLONOSCOPY 2021 COLONOSCOPY DIAGNOSTIC / SCREENING N/A 09/12/2024 Performed by Aliya Solorzano DO at [facility] ENDO[facility]ON[facility] ULTRASOUND BRONCHOSCOPY N/A 11/22/2023 Performed by Libby Finley MD at [facility] Right heart cath N/A 06/26/2024 Performed by Harinder Estrella MD at [facility] TONSILLECTOMY TUBAL LIGATION Bilateral [...] min Stress: No Stress Concern Present (12/20/2023) [employer] - Occupational Stress Questionnaire [...] Chronic heart failure with preserved ejection fraction ([facility]) 3. Type 2 diabetes mellitus with hyperglycemia, with long-term current use of insulin ([facility]) - MOUNJARO 2.5 mg/0.5 mL pen injector; [...] Referring Physician: Diaz Dalton MD [address] [place] [address] documented in this encounterGifford Medical CenterSqrl02-03-2025 Instructions* Patient Instructions* Katelyn Recio MD - 10/07/2024 8:15 AM EST Discontinue Actos Start Jardiance Increase tirzepatide/Mounjaro documented in this encounterNorwalk Memorial Hospital01-31-2025 Miscellaneous Notes* Telephone Encounter - Sue Chow CMA - 10/04/2024 9:36 AM EST Called patient to remind them to bring their most current copy of their medication list with them to their appt. Patient verbalizes understanding. documented in this encounterNorwalk Memorial Hospital01-31-2025 Telephone encounter Note* Telephone Encounter - Sue Chow CMA - 10/04/2024 9:36 AM EST Called patient to remind them to bring their most current copy of their medication list with them to their appt. Patient verbalizes understanding. [facility]01-14-2025 Miscellaneous Notes* Telephone Encounter - Allyosn Briscoe CMA - 09/17/2024 1:41 PM EST [...] Recall put in chart. documented in this [facility]01-14-2025 Telephone encounter Note* Telephone Encounter - Allyson Briscoe CMA - 09/17/2024 1:41 PM EST ----- Message from Dr. Aliya Solorzano DO sent at 09/17/2024 10:23 AM EST ----- Please let patient know that we did not get a polyp ibut I do recommend surveillance colonoscopy in5 years because there was a polyp but it was not retrieved. Thanks, Dr. [facility] [id number] Telephone encounter Note* Telephone Encounter - Allyson Briscoe CMA - 09/17/2024 1:41 PM EST Spoke with patient regarding pathology results. Patient verbally understood with no further questions. Recall put in chart. [facility] HospitalSmart[facility]01-02-2025 Miscellaneous Notes* Perioperative Nursing Note - Marylu Otero RN - 09/05/2024 1:30 PM EST Preoperative Education Checklist- General Surgery date: 09/12/24 Surgery time: 1130 Arrival time: 929 1. Bring a photo ID and your insurance card with you the day of surgery. You will check in at the main lobby of the [facility]- registration desk is straight ahead as soon as you walk in. Tell them you are here for surgery. 2. If you have a Living Will/Durable Power of Char Puller for Health Care that is not on [...] after you have bathed. 5. NO nail croatian/acrylic on at least one finger. If you are having a hand, wrist or foot surgery then all nail croatian and artificial/acrylic nails must be removed from [...] please call the Preadmission Testing office at [phone], Mon.-Fri. 7 a.m.-3 p.m. Leave a voicemail [...] of procedure documented in this encounterProMedica Health [id number] Nurse Note* Perioperative Nursing Note - Marylu Otero RN - 09/05/2024 1:30 PM EST Preoperative Education Checklist- General Surgery date: 09/12/24 Surgery time: 1130 Arrival time: 0930 1. Bring a photo ID and your insurance card with you the day of surgery. You will check in at the main lobby of the [facility]- registration desk is straight ahead as soon as you walk in. Tell them you are here for surgery. 2. If you have a Living Will/Durable Power of Char Puller for Health Care that is not on [...] after you have bathed. 5. NO nail croatian/acrylic on at least one finger. If you are having a hand, wrist or foot surgery then all nail croatian and artificial/acrylic nails must be removed from [...] please call the Preadmission Testing office at [phone], Mon.-Fri. 7 a.m.-3 p.m. Leave a voicemail [...] blister with device Take morning of procedure [facility]12-03-[facility] History of Present illness Narrative* Dayanara Wheatley LPN - 08/06/2024 2:00 PM EST Reason for Appointment: Patient ID: Carissa Santos is a 44 y.o. female who presents for [facility] Visit Patient presents today for Annual [...] Gluc Sensor (FreeStyle Crystal 14 Day Sensor) [facility] apply 1 SENSOR to back OF UPPER [...] UNITS DAILY* insulin pen needle (Droplet Pen Melfa) 32G x 4 mm [facility] USE ONE PEN NEEDLE TO INJECT MEDICATION [...] to allergen 10/01/2009 JOHN (generalized anxiety disorder) ([facility]) 10/01/2009 Contracture, unspecified ankle 04/06/2023 Chronic heart failure with preserved ejection fraction (HFpEF) ([facility]) 04/06/2023 Equinus deformity of left foot 04/06/2023 Gastroesophageal reflux disease 04/06/2023 Genital warts 04/06/2023 Hot flashes due to menopause 04/06/2023 Type 2 diabetes mellitus with microalbuminuria, with long-term current use of insulin ([facility]) 04/06/2023 Internal derangement of left shoulder 04/06/2023 Irritable bowel syndrome with diarrhea 04/06/2023 Mild developmental delay 09/29/2021 Migraine without aura and without status migrainosus, not intractable ([facility]) 04/06/2023 Mild episode of recurrent major depressive disorder (HCC) ([facility]) 04/06/2023 Class 3 severe obesity due to excess calories with serious comorbidity and body mass index (BMI) of40.0 to 44.9 in adult ([facility]) 11/21/2022 Type 2 diabetes mellitus with polyneuropathy ([facility]) 06/10/2021 Obstructive sleep apnea syndrome 09/30/2009 Osteoarthritis of knee 04/06/2023 Overactive bladder 04/06/2023 Panic disorder without agoraphobia ([facility]) 11/12/2009 Dyslipidemia ([facility]) 04/22/2010 Spondylosis without myelopathy 08/10/2010 Hypoxia 01/04/2024 Obesity hypoventilation syndrome ([facility]) 01/04/2024 Elevated blood-pressure reading without diagnosis of hypertension 01/04/2024 Right carpal tunnel syndrome 01/04/2024 Type 2 diabetes mellitus with hyperglycemia, with long-term current use of insulin ([facility]) 02/12/2024 Chronic hypoxic respiratory failure ([facility]) 02/19/2024 Moderate persistent asthma without complication ([facility]) 02/19/2024 Pulmonary hypertension ([facility]) 08/06/2024 Resolved Ambulatory Problems Diagnosis Date Noted Acute kidney injury (DREW) with acute tubular necrosis (ATN) ([facility]) 09/30/2021 Acute pain of left shoulder 04/06/2023 Shoulder joint pain 04/06/2021 Carpal tunnel syndrome of left wrist 04/06/2023 Convulsions in the 09/30/2009 Cubital tunnel syndrome on left 11/04/2022 Fecal incontinence 06/22/2016 High anion gap metabolic acidosis 09/30/2021 Hyperglycemia 03/01/2019 Mild intellectual disability ([facility]) 09/30/2009 Other chronic pain 04/06/2023 Pneumonia due to infectious organism 09/29/2021 Poorly controlled diabetes mellitus ([facility]) 08/10/2015 Normal gynecologic examination 06/09/2015 Missed period 04/06/2023 DKA, type 1, not at goal ([facility]) 09/27/2021 Type 2 diabetes mellitus ([facility]) 09/30/2009 Cavitary lesion of lung 08/10/2023 Other chest pain 08/10/2023 Acute pain of right knee 05/29/2024 Past Medical History: Diagnosis Date Ankle fracture Anxiety and depression ([facility]) At low risk for fall Bilateral leg edema Chest pain, central Chronic left shoulder pain Chronic pain Chronic respiratory failure ([facility]) Epilepsy ([facility]) GERD (gastroesophageal reflux disease) History of being hospitalized History of medical problems Hyperlipidemia ([facility]) Insomnia, persistent MDD (major depressive disorder), recurrent episode, mild (HCC) ([facility]) Morbid obesity with BMI of 40.0-44.9, adult ([facility]) Nocturnal hypoxemia Nonsmoker OAB (overactive bladder) Obesity JOSE M (obstructive sleep apnea) Postoperative urinary retention Primary osteoarthritis of left knee Seasonal allergies Type 2 diabetes mellitus with diabetic polyneuropathy, with long-term current use of insulin ([facility]) Type 2 diabetes mellitus without complication ([facility]) Vitamin D deficiency HISTORY PAST MEDICAL HISTORY SOCIAL HISTORY Past Medical History: Diagnosis Date Ankle fracture Anxiety and depression ([facility]) At low risk for fall Bilateral leg edema Chest pain, central Chronic left shoulder pain Chronic pain Chronic respiratory failure ([facility]) Dyslipidemia ([facility] Epilepsy ([facility]) Childhood epilepsy JOHN (generalized anxiety disorder) ([facility]) Genital warts GERD (gastroesophageal reflux disease) History of being hospitalized pneumonia, diabetes, infection [10/29/21-11/05/21] History of medical problems mild mental retardation Hyperlipidemia ([facility]) Insomnia, persistent Irritable bowel syndrome with diarrhea MDD (major depressive disorder), recurrent episode, mild (HCC) ([facility]) Migraine without aura and without status migrainosus, not intractable ([facility]) Morbid obesity with BMI of 40.0-44.9, adult ([facility]) Nocturnal hypoxemia Nonsmoker OAB (overactive bladder) Obesity JOSE M (obstructive sleep apnea) Postoperative urinary retention Primary osteoarthritis of left knee Seasonal allergies Type 2 diabetes mellitus with diabetic polyneuropathy, with long-term current use of insulin ([facility]) Type 2 diabetes mellitus with hyperglycemia, with long-term current use of insulin ([facility]) Type 2 diabetes mellitus without complication [facility] [facility]) Vitamin D deficiency Social History Tobacco [...] 12/29/2017 Diagnostic laparoscopy LAPAROTOMY OVARIAN CYSTECTOMY 03/31/2023 [place] ARTHROCENTESIS ASPIR&/INJ MAJOR JT/BURSA W/O US Right [...] nursing note reviewed. Exam conducted with a key sander present. Vitals: Estimated body mass index is [...] of: Feliz Benz DO documented in this encounterUniversity of Missouri Children's HospitalWttmigltqy87-40-5909 History of Present illness Narrative* Diaz Dalton MD - 08/06/2024 12:07 PM ESTAssociated Problem(s): Type 2 diabetes mellitus with hyperglycemia, with long-term current use of in sulin ([facility]) BS elevated with steroids and monitor. A1C improved but still elevated and increase mounjaro. * Diaz Dalton MD - 08/06/2024 12:07 PM ESTAssociated Problem(s): Pulmonary hypertension ([facility]) Continued SOB and follow with specialists. * [...] 44 y.o. female who presents for Follow-up ([facility] f/UP). ER follow up from 07/21 [...] referral to General Surgery documented in this encounterUniversity of Missouri Children's HospitalKgkfeellyx49-70-6181 History of Present illness Narrative* DUSTIN Rausch - 07/30/2024 6:47 PM EST Received critical lab result from blood work drawn today of a glucose of 577. Spoke with patient onthe phone. She states her blood sugars have been running high all day. She was instructed to call her PCP for further instructions. She is on insulin. DUSTIN Rausch 07/30/24 [id number] documented in this encounterNorwalk Memorial Hospital11-26-2024 Miscellaneous Notes* Telephone Encounter - MOIZ Dubon - 07/30/2024 6:41 PM EST Contract[facility]. Please call Shahrzad @ [phone]. Sent secure chat to Cassy Davila documented in this encounterNorwalk Memorial Hospital11-26-2024 Telephone encounter Note* Telephone Encounter - MOIZ Dubon - 07/30/2024 6:41 PM EST Contract: ROBBY Markham [facility] second page for critical lab on patient. Please call Shahrzad @ [phone]. Sent secure chat to Cassy Davila [facility]11-26-2024 Miscellaneous Notes* Telephone Encounter - Ramona Sarkar - 07/30/2024 6:18 PM EST [facility] for [facility] * Telephone Encounter - Ramona Sarkar - 07/30/2024 6:18 PM EST Secure Chat sent to Cassy Davila OPERATING SYSTEMS SPECIALIST Routing sent documented in this encounterNorwalk Memorial Hospital11-26-2024 Telephone encounter Note* Telephone Encounter - Ramona Sarkar - 07/30/2024 6:18 PM EST Contract: [facility] deandra See for Critical Lab [facility]11-26-2024 Telephone encounter Note* Telephone Encounter - Ramona Sarkar - 07/30/2024 6:18 PM EST Secure Chat sent to Cassy Davila OPERATING SYSTEMS SPECIALIST Routing sent [facility]11-14-2024 History of Present illness Narrative* Hair See MD - 07/18/2024 11:30 AM EST Carissa Tena Angela Date of visit: 07/18/2024 Date of : 1980 Age: 43 y.o. Patient Active Problem List Diagnosis Hyperglycemia Chest pain, unspecified Type 2 diabetes mellitus with hyperglycemia, with long-term current use of insulin ([facility]) Mild developmental delay Obstructive sleep apnea syndrome Hyperlipidemia associated with type 2 diabetes mellitus ([facility]) Abnormal ECG during exercise stress test Mediastinal lymphadenopathy Acute cystitis without hematuria Pulmonary nodule Dyspnea on exertion Moderate persistent asthma without complication Chronic hypoxic respiratory failure ([facility]) BMI 45.0-49.9, adult ([facility]) Pulmonary hypertension ([facility]) Allergies Allergen Reactions Sulfamethoxazole-Trimethoprim Hives, [...] total) by mouth every 6 (six) hours. zkshpoghddt-ihgdhmpye-eziwncla (TRELEGY ELLIPTA) 200-62.5-25 mcg blister with device [...] 06/26/2024 Performed by Harinder Estrella MD at [facility] CHOLECYSTECTOMY COLONOSCOPY 2021 ENDOBRONCHIAL ULTRASOUND BRONCHOSCOPY N/A 11/22/2023 Performed by Libby Finley MD at [facility] Right heart cath N/A 06/26/2024 Performed by Harinder Estrella MD at [facility] TONSILLECTOMY TUBAL LIGATION Bilateral [...] min Stress: No Stress Concern Present (12/20/2023) [employer] - Occupational Stress Questionnaire [...] 1. Dyspnea on exertion 2. Pulmonary hypertension ([facility]) Assessment: Chronic dyspnea on exertion Pulmonary [...] next visit. She has upcoming visit with cash register mechanic. Follow-up with Cardiology in a few months to reassess volume status. TODAYS ORDERS No orders of the defined types were placed in this encounter. FOLLOW UP No follow-ups on file. PCP: DIAZ DALTON MD Referring Physician: Diaz Dalton MD [address] [place] [address] documented in this encounterUniversity Hospitals Beachwood Medical CenterLucidux Rehabilitation Institute Of MichiganYwgzsf15-78-0841 Miscellaneous Notes* Telephone Encounter - Bethanie Patricia CMA - 07/17/2024 9:48 AM EST Called patient to remind them to bring their most current copy of their medication list with them to their appt. Patient verbalizes understanding. documented in this encounterNorwalk Memorial Hospital11-13-2024 Telephone encounter Note* Telephone Encounter - Bethanie Patricia CMA - 07/17/2024 9:48 AM EST Called patient to remind them to bring their most current copy of their medication list with them to their appt. Patient verbalizes understanding. [facility] SnapAppointments [id number] History of Present illness Narrative* Barry Snowden [...] develop for requiring urgent evaluation. Barry Snowden APRN-OPERATING SYSTEMS SPECIALIST documented in this encounterUniversity of Missouri Children's HospitalMfpeoulxah93-02-3028 History of Present illness Narrative* Maria C Bailey RN - 07/04/2024 9:00 AM EDT Patient presents to [place] office for post cardiac catheterization site evaluation. [...] prior to that appointment. documented in this encounterNorwalk Memorial Hospital10-30-2024 Miscellaneous Notes* Telephone Encounter - Bethanie Patricia CMA - 07/03/2024 9:53 AM EDT Called patient to remind them to bring their most current copy of their medication list with them to their appt. Patient verbalizes understanding. documented in this encounterNorwalk Memorial Hospital10-30-2024 Telephone encounter Note* Telephone Encounter - Bethanie Patricia CMA - 07/03/2024 9:53 AM EDT Called patient to remind them to bring their most current copy of their medication list with them to their appt. Patient verbalizes understanding. [facility]10-21-2024 History of Present illness Narrative* Barry [...] develop for requiring urgent evaluation. Barry Snowden APRN-OPERATING SYSTEMS SPECIALIST documented in this encounterUniversity of Missouri Children's HospitalWpaqpfewoj02-06-3402 Miscellaneous Notes* Telephone Encounter - Rochelle Lovell RN - 06/20/2024 8:44 AM EDT Received order from Tracie at the [place] office. Patient scheduled for cath on 06/26/24 at 8:30 am at [facility] with TLM. Notified Tracie. No Covid test required at this time. documented in this encounterNorwalk Memorial Hospital10-17-2024 Telephone encounter Note* Telephone Encounter - Rochelle Lovell RN - 06/20/2024 8:44 AM EDT Received order from Tracie at the [place] office. Patient scheduled for cath on 06/26/24 at 8:30 am at [facility] with TLM. Notified Tracie. No Covid test required at this time. [facility]10-16-2024 Miscellaneous Notes* Telephone Encounter - Bethanie Patricia CMA - 06/19/2024 9:24 AM EDT Called patient to remind them to bring their most current copy of their medication list with them to their appt. Patient verbalizes understanding. documented in this encounterNorwalk Memorial Hospital10-16-2024 Telephone encounter Note* Telephone Encounter - Bethanie Patricia CMA - 06/19/2024 9:24 AM EDT Called patient to remind them to bring their most current copy of their medication list with them to their appt. Patient verbalizes understanding. [facility]10-15-2024 Note [id number]10-15-2024 Telephone encounter Note* Telephone Encounter - Barry Snowden NP - 06/18/2024 10:01 AM EDT She should have Kenner at [facility] in [place] [facility] Work Phone: [phone] Miscellaneous Notes* Telephone Encounter - Barry Snowden NP - 06/18/2024 10:01 AM EDT She should have [facility] at [email or web address] in [place] * Telephone Encounter - Kristan Chan - 06/18/2024 9:58 AM EDT Patient called requesting pain meds. States that she is really hurting. documented in this encounterUniversity of Missouri Children's HospitalLejfhzeqvp89-55-8182 Telephone encounter Note* Telephone Encounter - Kristan Chan - 06/18/2024 9:58 AM EDT Patient called requesting pain meds. States that she is really hurting. [facility] Children's HospitalWpqzjvajeu36-01-[address] [facility] SURGERY Clinical Discharge Summary PERSON INFORMATION Name CARISSA SANTOS Age 43 Years 1980 Sex FEMALE Language Kosovan PCP DIAZ DALTON Marital Status Phone Med Service Ambulatory Surgery Acct# Arrival 06/17/2024 08:13:31 Visit Reason SURGERY - RIGHT CARPAL TUNNEL RELEASE Acuity LOS 171 20:16 Address: [address] [place] [id number] Comment: PROVIDER INFORMATION VITALS INFORMATION Vital Sign [...] every day. Durable Medical Equipment for Prescription (SYSTRAN SENSOR 14D) APPLY 1 SENSOR TO BACK [...] every day. Durable Medical Equipment for Prescription (InCrowdE SENSOR 14D) APPLY 1 SENSOR TO BACK [...] (oxybutynin 15 mg/24 hr (more content not included)...[facility] HospitalWseoijux74-49-3850 NoteProcedure: Decompression of median nerve right wrist [...] [Verified on: 06/17/2024 10:38 EDT] Gary Miller [facility]10-11-2024 Telephone encounter Note * Telephone Encounter - Barry Snowden NP - 06/14/2024 11:57 AM EDT Post op pain rx. PDMP reviewed [facility]'s HospitalSavfddoocg39-59-8444 Miscellaneous Notes* Telephone Encounter - Barry Snowden NP - 06/14/2024 11:57 AM EDT Post op pain rx. PDMP reviewed documented in this encounterUniversity of Missouri Children's HospitalCikurjrpro06-70-9615 History of Present illness Narrative* Lindsay Arrieta, [...] -1.94 2.91 - 4.40 (cm) Data set: [place] Z-score normal range: +/-1.65 PFT Results Radiology [...] paratracheal lymph node. Dr. Lindsay Arrieta DO. [facility] Pul[facility] Critical [facility] Office: [phone] documented in this encounterNorwalk Memorial Hospital10-04-2024 Telephone encounter Note* Telephone Encounter - UYEN Gunter - 06/07/2024 12:42 PM EDT We have the clearance we are good to go [facility] Work Phone: [phone] Miscellaneous Notes* Telephone Encounter - UYEN Gunter [...] what you need, please call her at [phone] option 3 goes straight to her desk. documented in this encounterUniversity of Missouri Children's HospitalMxxswdfstx23-22-4676 Telephone encounter Note* Telephone Encounter - Diaz Dalton MD - 06/07/2024 11:50 AM EDT Script sent. [facility] Children's HospitalDdytinbtiw21-33-7083 Miscellaneous Notes* Telephone Encounter - Diaz Dalton MD - 06/07/2024 11:50 AM EDT Script sent. * Telephone Encounter - PREMA MEDINA - 06/07/2024 11:21 AM EDT Prior auth for insulin went through, but was Prior auth'd for Semglee, if we can change the script and [facility]. clm documented in this encounterUniversity of Missouri Children's HospitalShkcszqaqh01-08-6437 Telephone encounter Note* Telephone Encounter - PREMA MEDINA - 06/07/2024 11:21 AM EDT Prior auth for insulin went through, but was Prior auth'd for Semglee, if we can change the script and send [facility]. clm [facility]'s HospitalDearxzdfwp72-77-4917 Telephone encounter Note* Telephone Encounter - Luiza Evans - 06/03/2024 12:42 PM EDT Prema at Dr Lopez office called and left vm regarding patient, she stated you needed an updatedsx clearance for patient having wrist sx? She said there is addended one from 05/13/24 in chart. If you have questions or this is not what you need, please call her at [phone] option 3 goes straight to her desk. [facility]'s HospitalXssnwpedrn14-07-9577 History of Present illness Narrative* Gary Miller, DO - 05/30/2024 2:30 PM EDT Images from the original note were not included. HISTORY OF PRESENT ILLNESS: Carissa Santos is an 43 y.o. @ female. Chief complaint RT hand N/T RT Wrist: cleared by Dr Dalton 05/13/24, had echo 05/14 [facility] Right wrist pain and N/T x 8-9 [...] Gluc Sensor (FreeStyle Crystal 14 Day Sensor) [facility] apply 1 SENSOR to back OF UPPER [...] each 5 insulin pen needle (Droplet Pen Melfa) 32G x 4 mm [facility] USE ONE PEN NEEDLE TO INJECT MEDICATION [...] Diagnosis Date Ankle fracture Anxiety and depression ([facility]) At low risk for fall Bilateral leg edema Chest pain, central Chronic left shoulder pain Chronic pain Chronic respiratory failure ([facility]) Dyslipidemia ([facility]) Epilepsy ([facility]) Childhood epilepsy JOHN (generalized anxiety disorder) ([facility]) Genital warts GERD (gastroesophageal reflux disease) History of being hospitalized pneumonia, diabetes, infection [10/29/21-11/05/21] History of medical problems mild mental retardation Hyperlipidemia ([facility]) Insomnia, persistent Irritable bowel syndrome with diarrhea MDD (major depressive disorder), recurrent episode, mild ([facility]) ([facility]) Migraine without aura and without status migrainosus, not intractable ([facility]) Morbid obesity with BMI of 40.0-44.9, adult ([facility]) Nocturnal hypoxemia Nonsmoker OAB (overactive bladder) Obesity JOSE M (obstructive sleep apnea) Postoperative urinary retention Primary osteoarthritis of left knee Seasonal allergies Type 2 diabetes mellitus with diabetic polyneuropathy, with long-term current use of insulin ([facility]) Type 2 diabetes mellitus with hyperglycemia, with long-term current use of insulin ([facility]) Type 2 diabetes mellitus without complication ([facility]) Vitamin D deficiency ALLERGIES: Allergies Allergen [...] Comments denies dribbling. Incontinence denies. Musculoskeletal: CommentsSee [facility] for details. Skin: Rash denies. Neurologic: Dizziness [...] to proceed with surgery. I anticipate a [facility] Deirdre Miller D.O. documented in this encounterUniversity of Missouri Children's HospitalAhredvgoda64-28-6613 History of Present illness Narrative* Diaz Dalton MD - 05/29/2024 11:15 AM EDTAssociated Problem(s): Right carpal tunnel syndrome Continued pain and follow with ortho. * Diaz Dalton MD - 05/29/2024 11:14 AM EDTAssociated Problem(s): Type 2 diabetes mellitus with microalbuminuria, with long-term current use of insulin ([facility]) BS elevated and A1C 12.9. Not [...] knee pain. Fell walking down steps at [employer] 05/15 and hurt right knee. To ER [...] microalbuminuria, with long-term current use of insulin ([facility]) BS elevated and A1C 12.9. Not [...] Continue relafen and flexeril. documented in this encounterUniversity of Missouri Children's HospitalFuuoctgyns59-53-6502 Miscellaneous Notes* Telephone Encounter - Sue Chow CMA - 05/28/2024 9:08 AM EDT LM to call office to reschedule appt for today. documented in this encounterNorwalk Memorial Hospital09-24-2024 Telephone encounter Note* Telephone Encounter - Sue Chow CMA - 05/28/2024 9:08 AM EDT LM to call office to reschedule appt for today. [facility]09-23-2024 Miscellaneous Notes* Telephone Encounter - Bethanie Patricia CMA - 05/27/2024 10:28 AM EDT Left message for patient to remind them to bring their most current medication list with them to their appointment. documented in this encounterNorwalk Memorial Hospital09-23-2024 Telephone encounter Note* Telephone Encounter - Bethanie Patricia CMA - 05/27/2024 10:28 AM EDT Left message for patient to remind them to bring their most current medication list with them to their appointment. [facility]09-12-2024 Telephone encounter Note* Telephone Encounter - Diaz Dalton MD - 05/16/2024 9:38 PM EDT [facility] HospitalOmdzyglumh01-63-8581 Miscellaneous Notes* Telephone Encounter - Diaz Dalton MD - 05/16/2024 9:38 PM EDT documented in this encounterUniversity of Missouri Children's HospitalUkbmcsbqwz82-52-8091 History of Present illness Narrative* Diaz Dalton MD - 05/13/2024 2:50 PM EDTAssociated Problem(s): Type 2 diabetes mellitus with hyperglycemia, with long-term current use of insulin ([facility]) Reports BS improved and due for [...] Orders Hemoglobin A1c Chronic hypoxic respiratory failure ([facility]) On home oxygen and follow with pulmonology. documented in this encounterUniversity of Missouri Children's HospitalNgcmzlztzc33-75-9086 Miscellaneous Notes* Telephone Encounter - MOIZ Andrew - 05/07/2024 8:56 AM EDT Oxygen order placed and faxed to [facility] with supportive documentation. documented in this encounterNorwalk Memorial Hospital09-03-2024 Telephone encounter Note* Telephone Encounter - MOIZ Andrew - 05/07/2024 8:56 AM EDT Oxygen order placed and faxed to [facility] with supportive documentation. [facility]08-21-2024 Telephone encounter Note* Telephone Encounter - Heaven November - 04/24/2024 2:42 PM EDT LM for patient to call our office back. [facility] HospitalKmfpwurpga21-03-5146 History of Present illness Narrative* Dayanara Wheatley [...] mg, Oral, Daily Continuous Blood Gluc Sensor (NeongaStyle Crystal 14 Day Sensor) misc apply 1 [...] UNITS DAILY* insulin pen needle (Droplet Pen Melfa) 32G x 4 mm [facility] USE ONE PEN NEEDLE TO INJECT MEDICATION [...] to allergen 10/01/2009 JOHN (generalized anxiety disorder) ([facility]) 10/01/2009 Carpal tunnel syndrome of left wrist 04/06/2023 Contracture, unspecified ankle 04/06/2023 Edema 04/06/2023 Equinus deformity of left foot 04/06/2023 Gastroesophageal reflux disease 04/06/2023 Genital warts 04/06/2023 Hot flashes due to menopause 04/06/2023 Type 2 diabetes mellitus with microalbuminuria, with long-term current use of insulin ([facility]) 04/06/2023 Internal derangement of left shoulder 04/06/2023 Irritable bowel syndrome with diarrhea 04/06/2023 Mild developmental delay 09/29/2021 Migraine without aura and without status migrainosus, not intractable ([facility]) 04/06/2023 Mild episode of recurrent major depressive disorder (HCC) ([facility]) 04/06/2023 Morbid obesity ([facility]) 11/21/2022 Type 2 diabetes mellitus with polyneuropathy ([facility]) 06/10/2021 Obstructive sleep apnea syndrome 09/30/2009 Osteoarthritis of knee 04/06/2023 Overactive bladder 04/06/2023 Panic disorder without agoraphobia ([facility]) 11/12/2009 Dyslipidemia ([facility]) 04/22/2010 Spondylosis without myelopathy 08/10/2010 Cavitary lesion of lung 08/10/2023 Hypoxia 01/04/2024 Obesity hypoventilation syndrome ([facility]) 01/04/2024 Elevated blood-pressure reading without diagnosis of hypertension 01/04/2024 Right carpal tunnel syndrome 01/04/2024 Type 2 diabetes mellitus with hyperglycemia, with long-term current use of insulin ([facility]) 02/12/2024 Chronic hypoxic respiratory failure ([facility]) 02/19/2024 Moderate persistent asthma without complication ([facility]) 02/19/2024 Resolved Ambulatory Problems Diagnosis Date Noted Acute kidney injury (DREW) with acute tubular necrosis (ATN) ([facility]) 09/30/2021 Acute pain of left shoulder 04/06/2023 Shoulder joint pain 04/06/2021 Convulsions in the 09/30/2009 Cubital tunnel syndrome on left 11/04/2022 Fecal incontinence 06/22/2016 High anion gap metabolic acidosis 09/30/2021 Hyperglycemia 03/01/2019 Mild intellectual disability ([facility]) 09/30/2009 Other chronic pain 04/06/2023 Pneumonia due to infectious organism 09/29/2021 Poorly controlled diabetes mellitus ([facility]) 08/10/2015 Normal gynecologic examination 06/09/2015 Missed period 04/06/2023 DKA, type 1, not at goal ([facility]) 09/27/2021 Type 2 diabetes mellitus ([facility]) 09/30/2009 Other chest pain 08/10/2023 Past Medical History: Diagnosis Date Ankle fracture Anxiety and depression ([facility]) At low risk for fall Bilateral leg edema Chest pain, central Chronic left shoulder pain Chronic pain Chronic respiratory failure ([facility]) Epilepsy ([facility]) GERD (gastroesophageal reflux disease) History of being hospitalized History of medical problems Hyperlipidemia ([facility]) Insomnia, persistent MDD (major depressive disorder), recurrent episode, mild (HCC) ([facility]) Morbid obesity with BMI of 40.0-44.9, adult ([facility]) Nocturnal hypoxemia Nonsmoker OAB (overactive bladder) Obesity JOSE M (obstructive sleep apnea) Postoperative urinary retention Primary osteoarthritis of left knee Seasonal allergies Type 2 diabetes mellitus with diabetic polyneuropathy, with long-term current use of insulin ([facility]) Type 2 diabetes mellitus without complication ([facility]) Vitamin D deficiency HISTORY PAST MEDICAL HISTORY SOCIAL HISTORY Past Medical History: Diagnosis Date Ankle fracture Anxiety and depression ([facility]) At low risk for fall Bilateral leg edema Chest pain, central Chronic left shoulder pain Chronic pain Chronic respiratory failure ([facility]) Dyslipidemia ([facility]) Epilepsy ([facility]) Childhood epilepsy JOHN (generalized anxiety disorder) ([facility]) Genital warts GERD (gastroesophageal reflux disease) History of being hospitalized pneumonia, diabetes, infection [10/29/21-11/05/21] History of medical problems mild mental retardation Hyperlipidemia ([facility]) Insomnia, persistent Irritable bowel syndrome with diarrhea MDD (major depressive disorder), recurrent episode, mild (HCC) ([facility]) Migraine without aura and without status migrainosus, not intractable ([facility]) Morbid obesity with BMI of 40.0-44.9, adult ([facility]) Nocturnal hypoxemia Nonsmoker OAB (overactive bladder) Obesity JOSE M (obstructive sleep apnea) Postoperative urinary retention Primary osteoarthritis of left knee Seasonal allergies Type 2 diabetes mellitus with diabetic polyneuropathy, with long-term current use of insulin ([facility]) Type 2 diabetes mellitus with hyperglycemia, with long-term current use of insulin ([facility]) Type 2 diabetes mellitus without complication ([facility]) Vitamin D deficiency Social History Tobacco [...] 12/29/2017 Diagnostic laparoscopy LAPAROTOMY OVARIAN CYSTECTOMY 03/31/2023 [place] ARTHROCENTESIS ASPIR&/INJ MAJOR JT/BURSA W/O US Right [...] nursing note reviewed. Exam conducted with a key sander present. Vitals: Estimated body mass index is [...] of: Feliz Benz DO documented in this encounterDoug[place] [id number] Telephone encounter Note* Telephone Encounter - UYEN Gunter - 04/24/2024 12:11 PM EDT Once she is cleared we can reschedule her surgery, please let patient know thanks [facility] Work Phone: 1(599) 380-484908-21-2024 Telephone encounter Note* Telephone Encounter - Heaven November - 04/24/2024 11:48 AM EDT Patient called back asking if she should reschedule surgery at this time or wait until after cardiac clearance, please advise. Call back # [phone] [place] [id number] Telephone encounter Note* Telephone Encounter - UYEN Gunter - 04/24/2024 11:13 AM EDT Notified [facility] and cx sx [place] [id number] Telephone encounter Note* Telephone Encounter - Kristan Chan - 04/22/2024 9:56 AM EDT Patient would like to cancel her surgery. Appointment for cardiac namrata isn't till May 14. [place] [id number] Telephone encounter Note* Telephone Encounter - UYEN Gunter - 04/18/2024 4:06 PM EDT LM with Dr Dalton office that patient needs Echo and clearance from PCP Also spoke with patient to contact PCP to follow up for clearance [place] [id number] Telephone encounter Note* Telephone Encounter - UYEN Escudero - 04/18/2024 3:52 PM EDT Jacqueline from [facility] pre surgery called regarding patient carissa santos 1980. she said looked at her Pat and said she needs to have an echo, that she needs evaluation for pulmonary hypertension. Please advise [place] [id number] Miscellaneous Notes* Telephone Encounter - Nina Bojorquez RN - 04/15/2024 6:26 PM EDT Images from the original note were not included. Last OV 07/13/2023 Message to scheduling for appt BMP 12/23/2023 documented in this encounterNorwalk [facility]08-12-2024 Telephone encounter Note* Telephone Encounter - Nina Bojorquez RN - 04/15/2024 6:26 PM EDT Images from the original note were not included. Last OV 07/13/2023 Message to scheduling for appt BMP 12/23/2023 [facility]08-07-2024 Miscellaneous Notes* Telephone Encounter - Raya [...] protocol in sleep otherwise documented in this encounterNorwalk [facility] Hospital08-07-2024 Telephone encounter Note* Telephone Encounter - [...] oxygen, add per protocol in sleep otherwise [facility]08-06-20[facility] History of Present illness Narrative* Smitha Germain MD - 04/09/2024 11:00 AM EDT CHIEF COMPLAINT: Carissa Santos is a 43 y.o. female who presents to [facility] in follow-up for [...] had prescribed thisfor sleep in the past [place] Sleepiness Scale: Sitting and Reading: Never Watching [...] hyperglycemia, with long-term current use of insulin ([facility]) Mild developmental delay Obstructive sleep apnea syndrome Severe obesity (BMI >= 40) ([facility]) Hyperlipidemia associated with type 2 diabetes mellitus ([facility]) Abnormal ECG during exercise stress test Mediastinal lymphadenopathy Acute cystitis without hematuria Pulmonary nodule Dyspnea on exertion Moderate persistent asthma without complication Chronic hypoxic respiratory failure ([facility]) Past Medical History: Diagnosis Date Anxiety Deep vein thrombosis ([facility]) Dental disease no teeth Depression Diabetes mellitus type I ([facility]) Elevated cholesterol GERD (gastroesophageal reflux disease) Hyperlipidemia Hypertension Lymphadenopathy 2023 MR (mental retardation) Obesity Panic disorder Visual impairment Past Surgical History: Procedure Laterality Date CHOLECYSTECTOMY COLONOSCOPY 2021 ENDOBRONCHIAL ULTRASOUND BRONCHOSCOPY N/A 11/22/2023 Performed by Libby Finley MD at [facility] TONSILLECTOMY TUBAL LIGATION Bilateral 2018 ALLERGIES: [...] Units total) by mouth in the morning. qnfwjquuyyd-zhqssvtwj-nficgzib (TRELEGY ELLIPTA) 200-62.5-25 mcg blister with device [...] apnea), suspected 2. Chronic hypoxic respiratory failure ([facility]) 3. Severe obesity (BMI >= 40) ([facility]) Carissa Santos is a 43 y.o. female [...] GERMAIN MD [facility] [address] [place] [id number] documented in this encounterGifford Medical CenterSqrl08-06-2024 Instructions* Patient Instructions* Smitha Germain MD - 04/09/2024 11:00 AM EDT Thank you for visiting [facility] office. The process of completing a sleep study hasmany steps. We have detailed these steps below to help keep you informed of what to expect. The scheduling, prior authorization, and registration process: Please call option #1 to schedule your sleep study. Your sleep medicine specialist places an electronic order which is sent to [facility] sleep lab. This order is then reviewed by the lab staff and a request for approval is sent to your insurance company. If you would like to know the estimated cost of your study, you can call [phone] for general pricing information (note that you will need the following procedure codes allow them to estimate thecost: Polysomnogram (PSG), in lab diagnostic study without CPAP = 11770 PAP titration, in lab with CPAP for treatment = 45057 Every study request is reviewed in our sleep prior authorization department. Some sleep studies require prior authorization and some do not (only require that the provider document the need for the study). Some sleep study orders may need to be changed based on insurance coverage. (ie in lab to home study). Please confirm with your insurance that all [facility] sleep labs are in [...] your sleep study is sent to a associate technician to be reviewed and scored. The report from the associate technician is then sent to the sleep [...] days ofyour study, please call our office [phone]. FYI: Some insurance companies have strict guidelines regarding the timeline for this process. If sleep studies are not completed within 6-12 months of the office visit insurance may require another office visit. Also if cpap set up is not done within a year of the initial sleep study insurance may require another sleep study. Thank you, [facility] Sleep Medicine Department REQUIREMENTS [...] by your insurance company. documented in this encounterGifford Medical CenterSqrl07-18-2024 History of Present illness Narrative* Stella Reyes RN - 03/21/2024 3:56 PM EDT Patient called nurse line and requested Trelegy script to be sent to [facility]. Script sent. documented in this encounterUniversity Hospitals Beachwood Medical CenterLucidux Rehabilitation Institute Of [id number] History of Present illness Narrative* Lindsay Arrieta, [...] or calculate RVSP. Will reach out to [facility] to determine what portable tanks she [...] Meds Medications Reviewed. Dr. Lindsay Arrieta DO. [facility] Office: [phone] documented in this encounterNorwalk Memorial Hospital07-09-2024 Miscellaneous Notes* Telephone Encounter - Michelle Oseguera - 03/12/2024 3:09 PM EDT Per patient arriving to [facility] one hour past appt time and Dr GARLAND already gone for the day office canceled pt arrival and marked patient as a NO SHOW per PN. documented in this encounterNorwalk Memorial Hospital07-09-2024 Telephone encounter Note* Telephone Encounter - Michelle Oseguera - 03/12/2024 3:09 PM EDT Per patient arriving to [facility] one hour past appt time and Dr GARLAND already gone for the day office canceled pt arrival and marked patient as a NO SHOW per PN. [facility]07-09-2024 Miscellaneous Notes* Telephone Encounter - Maria C Bridges RN - 03/12/2024 3:08 PM EDT Patient signed [facility] at 258 pm [facility] Spoke with patient. Will need to reschedule appt. Is there a day she can be added on? * Telephone Encounter - Lindsay Arrieta DO - 03/12/2024 3:08 PM EDT Can do video visit on Monday at 3pm please. * Telephone Encounter - Maria C Bridges RN - 03/12/2024 3:08 PM EDT Patient agreeable and scheduled documented in this encounterNorwalk Memorial Hospital07-09-2024 Telephone encounter Note* Telephone Encounter - Maria C Bridges RN - 03/12/2024 3:08 PM EDT Patient signed on at 258 pm for 2 pm mychart visit. Spoke with patient. Will need to reschedule appt. Is there a day she can be added on? [employer] Work Phone: 1(639) 166-386707-09-2024 Telephone encounter Note* Telephone Encounter - Lindsay Arrieta DO - 03/12/2024 3:08 PM EDT Can do video visit on Monday at 3pm please. [facility] [employer] [id number] Telephone encounter Note* Telephone Encounter - Maria C Bridges RN - 03/12/2024 3:08 PM EDT Patient agreeable and scheduled [facility]06-24-2024 Miscellaneous Notes* Telephone Encounter - Michelle Oseguera - 02/26/2024 9:44 AM EDT Gosia called office to confirm patient appt date and times. Office confirmed and gave Gosia central scheduling number for sleep study purposes. documented in this encounterNorwalk Memorial Hospital06-24-2024 Telephone encounter Note* Telephone Encounter - Michelle Oseguera - 02/26/2024 9:44 AM EDT Gosia called office to confirm patient appt date and times. Office confirmed and gave Gosia central scheduling number for sleep study purposes. [facility]06-06-20[facility] History of Present illness Narrative* Lindsay Arrieta, DO - 02/08/2024 9:00 AM EDT [facility] Progress Note Patient [...] 3 months or earlier if needed SUBJECTIVE Carsisa presents with her support person for follow [...] function testing. She was recently hospitalized at [facility] in December. She just checked [...] Results [facility] [address] [place] [address] Cytology Consultation Patient Name:CARISSA SANTOS:1980 (Age: 43)Gender:FTaken:11/22/2023eported:11/23/2023 17:47Physician(s):Libby Finley MD ([phone])Copy To: Rec. #:[id number]: #[id number] Final Cytologic Diagnosis 1. 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 Contrast evaluation of the face/brain due to [...] findings/limitations as above Dr. Lindsay Arrieta DO. [facility] Office: [phone] documented in this [facility]05-03-2024 Miscellaneous Notes* Telephone Encounter - Mary Gayle - 01/05/2024 10:40 AM EDT 01/05/2024- this patient called and left a vm, I called back and left a vm. mary documented in this [facility]05-03-2024 Telephone encounter Note* Telephone Encounter - Mary Gayle - 01/05/2024 10:40 AM EDT 01/05/2024- this patient called and left a vm, I called back and left a vm. mary [facility]04-20-20[facility] Nurse Note* Lindsey Bryant RN - [...] tele D/C. Waiting for Patient's ride home. [facility]04-20-[facility] Nurse Note* Lindsey Bryant RN - [...] for Patient's ride home. documented in this encounterNorwalk Memorial Hospital04-20-2024 Plan of care note * Plan [...] at the bedside 7. Instruct patient/ patient account retention representative about use of safety devices 8. Include patient/ patient account retention representative in decisions related to safety Outcome: Progressing Note: Evaluation of progress towards goal: Pt is free of injury, safe environment provided and maintained, medication administered as ordered, hand hygiene completed. [facility]04-20-2024 Miscellaneous Notes* Plan of Care - Lindsey [...] at the bedside 7. Instruct patient/ patient account retention representative about use of safety devices 8. Include patient/ patient account retention representative in decisions related to safety Outcome: [...] Description: INTERVENTIONS: 1. Encourage patient or legal account retention representative to report early pain and ask [...] per policy 9. Teach patient or legal account retention representative interventions for comforting Outcome: Progressing Note: [...] at the bedside 7. Instruct patient/ patient account retention representative about use of safety devices 8. Include patient/ patient account retention representative in decisions related to safety Outcome: [...] hygiene technique 7. Identify and instruct patient/patient account retention representative in use of appropriate isolation precautionsfor identified infection/symptoms 8. Provide and discuss with patient/patient account retention representative on educational MDRO sheet 9. Encourage and monitor nutritional status daily and consult rn infusion if indicated 10. Implement neutropenic guidelines as needed 11. Review exposure to history of communicable disease and recent travel history on admission 12. Encourage annual influenza vaccine 13. Encourage pneumonia vaccine Outcome: Progressing Note: Evaluation of progress towards goal: Problem: Knowledge Deficit Goal: Patient/patient account retention representative demonstrates understanding of disease process, treatment [...] discussed with pt who confirmedthis. She asked production underwriter to try another DME. Staff updated on oxygen barrier. [facility] and also called: [phone] and spoke to Talisha who was able [...] Description: INTERVENTIONS: 1. Encourage patient or legal account retention representative to report early pain and ask [...] per policy 9. Teach patient or legal account retention representative interventions for comforting Outcome: Progressing Note: [...] at the bedside 7. Instruct patient/ patient account retention representative about use of safety devices 8. Include patient/ patient account retention representative in decisions related to safety Outcome: [...] at the bedside 7. Instruct patient/ patient account retention representative about use of safety devices 8. Include patient/ patient account retention representative in decisions related to safety Outcome: [...] hygiene technique 7. Identify and instruct patient/patient account retention representative in use of appropriate isolation precautionsfor identified infection/symptoms 8. Provide and discuss with patient/patient account retention representative on educational MDRO sheet 9. Encourage and monitor nutritional status daily and consult rn infusion if indicated 10. Implement neutropenic guidelines as [...] on disability, unemployed and supports her financially. [employer] Partner reviewed goal for safe dc, discussed community [...] difficulty affording home medications; preferred pharmacy is [facility] in [place]. Pt prefers to make own appt, Informed production underwriter will f/u tomorrow to assist with finalizing home oxygen referral. She did not have any other questions or concerns at this time. 12/21/23 1656 Discharge Disposition Discharge Disposition Home Durable Medical Equipment (Qualified for oxygen with activity: Requests referral sent to [employer] She has had oxygen in the past from [facility] that is now [facility] County Information [facility] Patient Information Primary Caregiver Self Support System Immediate family Stressors Type of stressor (Denies) Income Information Income Information Unemployed ( provides income. She is not on disability) Referral To Community Resources Denies needs Discharge Planning Living Arrangements Spouse/significant other Support Systems Spouse/significant other;Parent;Family members;Friends;manager continuous improvement/hospice social worker Assistance Needed Spoke to pt [...] contact info and started to call when production underwriter left room. Type of Residence Private [...] home oxygen) Home Durable Medical Equipment Name: [employer] Home Durable Medical Equipment Home Durable Medical [...] EDT DISCHARGE PLANNING NOTE Referral sent to [facility], [facility] ([place]- P# ; F# ) ([place]- P# ; F# ) ([place]- P# ; F# ) ([place]- P# ; F# ) ([place]- P# ; F# ) ([place]- P# ; F# ) ([place]- P# [phone] ; F# [phone]) * Plan of Care - Arlene Smallwood RN - 12/21/2023 12:09 PM EDT Problem: Knowledge Deficit Goal: Patient/patient account retention representative demonstrates understanding of disease process, treatment [...] [facility] staff, pt qualifies to [...] at the bedside 7. Instruct patient/ patient account retention representative about use of safety devices 8. Include patient/ patient account retention representative in decisions related to safety Outcome: Progressing Note: Evaluation of progress towards goal: Pt remains free from falls or accidental injury during stay. Fall prevention measures in place. Hourly rounding per RN and NA maintained. Problem: Knowledge Deficit Goal: Patient/patient account retention representative demonstrates understanding of disease process, treatment [...] involve patient in care. documented in this encounterNorwalk Memorial Hospital04-19-2024 Plan of care note * Plan of Care - Archana Hernandez RN - 12/22/2023 8:41 PM EDT Problem: Pain Goal: Patient goal is pain score less than 4, able to rest, and participant in treatment plan as appropriate Description: INTERVENTIONS: 1. Encourage patient or legal account retention representative to report early pain and ask [...] per policy 9. Teach patient or legal account retention representative interventions for comforting Outcome: Progressing Note: [...] at the bedside 7. Instruct patient/ patient account retention representative about use of safety devices 8. Include patient/ patient account retention representative in decisions related to safety Outcome: [...] hygiene technique 7. Identify and instruct patient/patient account retention representative in use of appropriate isolation precautionsfor identified infection/symptoms 8. Provide and discuss with patient/patient account retention representative on educational MDRO sheet 9. Encourage and monitor nutritional status daily and consult rn infusion if indicated 10. Implement neutropenic guidelines as needed 11. Review exposure to history of communicable disease and recent travel history on admission 12. Encourage annual influenza vaccine 13. Encourage pneumonia vaccine Outcome: Progressing Note: Evaluation of progress towards goal: Problem: Knowledge Deficit Goal: Patient/patient account retention representative demonstrates understanding of disease process, treatment [...] working together with patient toachieve discharge goals. [facility] [employer] [id number] Hospital Discharge instructions* Discharge Instr - Other Orders* DOC Taylor - 12/22/2023 6:09 PM EDT Please call [facility] for update on oxygen. [phone]. Unable to arrange with [facility] [...] * Urinary Tract Infection Discharge Instructions, Adult ([place]) * Type 2 Diabetes Discharge Instructions ([place]) * Sleep Apnea Discharge Instructions ([place]) documented in this encounterNorwalk Memorial Hospital04-19-2024 History of Present illness Narrative* Tracy [...] With Exercise/Ambulation 94 % documented in this encounterNorwalk Memorial Hospital04-19-2024 Progress note* Discharge Planning Note - [...] - Stacey Smith RN 12/22/23 11:04 AM [facility] [employer] [id number] Progress note* Discharge Planning Note - DOC [...] discussed with pt who confirmedthis. She asked production underwriter to try another DME. Staff updated on oxygen barrier. [facility] and also called: [phone] and spoke to Talisha who was able [...] oxygen today. DOC Taylor, 12/22/2023, 10:51 AM [facility]04-19-2024 Hospital course Narrative* Ezequiel Graff MD - 12/22/2023 10:44 AM EDT Images from the original note were not included. [facility] Hospital Medicine Discharge Summary Patient: Carissa Santos Date of : 1980 Room: 215/01 Encounter date: 12/22/23 DATE OF ADMISSION: 12/20/2023 DATE OF DISCHARGE:12/22/2023 DISCHARGE DIAGNOSES Principal Problem: Type 2 diabetes mellitus with hyperglycemia, with long-term current use of insulin ([facility]) Active Problems: Hyperglycemia Obstructive sleep apnea syndrome Severe obesity (BMI >= 40) ([facility]) Hyperlipidemia associated with type 2 diabetes mellitus ([facility]) Acute cystitis without hematuria CONS[facility]ANTS [...] and patient oxygen saturation increased to 94%. Bekh-ea-eohi evaluation was completed today. Home O2 evaluation [...] These medications were sent to [id number] - [place], [place] - [address] [facility] [address] [facility] [id number] albuterol 90 mcg/actuation inhaler CEPHalexin 500 mg capsule >30 minutes were spent on discharging this patient. Eddie Zurita, FINA-LUCIANO, 12/22/2023 10:44 AM [facility] Hospitalists 7AM-7PM: Message rounding MARY JO in [employer] or page through [employer]. 7PM-7AM: Page on-call MARY JO through our [...] noted. EZEQUIEL GRAFF MD documented in this encounterNorwalk Memorial Hospital04-19-2024 Plan of care note * Plan of Care - Jania Sierra RN - 12/22/2023 8:37 AM EDT Problem: Pain Goal: Patient goal is pain score less than 4, able to rest, and participant in treatment plan as appropriate Description: INTERVENTIONS: 1. Encourage patient or legal account retention representative to report early pain and ask [...] per policy 9. Teach patient or legal account retention representative interventions for comforting Outcome: Progressing Note: [...] at the bedside 7. Instruct patient/ patient account retention representative about use of safety devices 8. Include patient/ patient account retention representative in decisions related to safety Outcome: [...] monitor and treat blood sugar as needed [facility]04-19-2024 Plan of care note* Plan of [...] at the bedside 7. Instruct patient/ patient account retention representative about use of safety devices 8. Include patient/ patient account retention representative in decisions related to safety Outcome: [...] hygiene technique 7. Identify and instruct patient/patient account retention representative in use of appropriate isolation precautionsfor identified infection/symptoms 8. Provide and discuss with patient/patient account retention representative on educational MDRO sheet 9. Encourage and monitor nutritional status daily and consult rn infusion if indicated 10. Implement neutropenic guidelines as [...] levels around 300mg/dl, insulin given PRN given. [facility]04-18-2024 Progress note* Discharge Planning Note - [...] on disability, unemployed and supports her financially. [facility] Partner reviewed goal for safe dc, discussed community [...] difficulty affording home medications; preferred pharmacy is [facility] in [place]. Pt prefers to make own appt, Informed production underwriter will f/u tomorrow to assist with [...] [facility] County Information [facility] Patient Information Primary Caregiver Self Support System Immediate family Stressors Type of stressor (Denies) Income Information Income Information Unemployed ( provides income. She is not on disability) Referral To Community Resources Denies needs Discharge Planning Living Arrangements Spouse/significant other Support Systems Spouse/significant other;Parent;Family members;Friends;manager continuous improvement/hospice social worker Assistance Needed Spoke to pt [...] contact info and started to call when production underwriter left room. Type of Residence Private [...] home oxygen) Home Durable Medical Equipment Name: [email or web address] [facility] Home Durable Medical Equipment Home Durable Medical [...] goal: In progress: Home with oxygen tomorrow. [facility] [id number] Progress note* Discharge Planning Note - Paloma Bojorquez - 12/21/2023 3:16 PM EDT DISCHARGE PLANNING NOTE Referral sent to [facility] formerly [facility], andARELY [place] ([place]- P# ; F# ) ([place]- P# ; F# ) ([place]- P# ; F# ) ([place]- P# ; F# ) ([place]- P# ; F# ) ([place]- P# ; F# ) ([place]- P# [phone] ; F# [phone]) [facility] [id number] Plan of care note* Plan of Care - Arlene Smallwood RN - 12/21/2023 12:09 PM EDT Problem: Knowledge Deficit Goal: Patient/patient account retention representative demonstrates understanding of disease process, treatment [...] Patient is [facility] care of staff, pt qualifies to be discharged on home O2 and is awaiting that to be arranged. [facility]04-18-2024 History and physical note* Ezequiel Graff MD - 12/21/2023 9:29 AM EDT Images from the original note were not included. [facility] INTER[facility] Medicine History & Physical Patient: Carissa Santos Date of : 1980 Room: [facility] PCP: DIAZ DALTON MD Admission date: [...] medical history of Anxiety, Deep vein thrombosis ([facility]), Dental disease, Depression, Diabetes mellitus type I ([facility]), Elevated cholesterol, GERD (gastroesophageal reflux disease), [...] hyperglycemia, with long-term current use of insulin ([facility]) Active Problems: Hyperglycemia Obstructive sleep apnea syndrome Severe obesity (BMI >= 40) ([facility]) Hyperlipidemia associated with type 2 diabetes mellitus ([facility]) Acute cystitis without hematuria ASSESSMENT [...] days. Eddie Zurita APRN-LUCIANO, 12/21/2023 9:52 AM [facility] Hospitalists 7AM-7PM: Message rounding MARY JO in [employer] or page through [employer]. 7PM-7AM: Page on-call MARY JO through our [...] above, unless otherwise noted. EZEQUIEL GRAFF MD [facility]04-18-2024 History and physical note* Ezequiel Graff MD - 12/21/2023 9:29 AM EDT Images from the original note were not included. [facility] INTERNAL MEDICINE Hospital Medicine History & Physical Patient: Carissa Santos Date of : 1980 Room: [facility] PCP: DIAZ DALTON MD Admission date: [...] medical history of Anxiety, Deep vein thrombosis ([facility]), Dental disease, Depression, Diabetes mellitus type I ([facility]), Elevated cholesterol, GERD (gastroesophageal reflux disease), Hyperlipidemia, [...] hyperglycemia, with long-term current use of insulin ([facility]) Active Problems: Hyperglycemia Obstructive sleep apnea syndrome Severe obesity (BMI >= 40) ([facility]) Hyperlipidemia associated with type 2 diabetes mellitus ([facility]) Acute cystitis without hematuria ASSESSMENT [...] Discharge home in 1-2 days. Eddie Zurita, POT OPERATOR-OPERATING SYSTEMS SPECIALIST, 12/21/2023 9:52 AM [facility] 7AM-7PM: Message rounding MARY JO in [employer] or page through [employer]. 7PM-7AM: Page on-call MARY JO through our [employer] service, . Physician Attestation: I have reviewed [...] noted. EZEQUIEL GRAFF MD documented in this encounterNorwalk Memorial Hospital04-18-2024 Plan of care note * Plan [...] at the bedside 7. Instruct patient/ patient account retention representative about use of safety devices 8. Include patient/ patient account retention representative in decisions related to safety Outcome: Progressing Note: Evaluation of progress towards goal: Pt remains free from falls or accidental injury during stay. Fall prevention measures in place. Hourly rounding per RN and NA maintained. Problem: Knowledge Deficit Goal: Patient/patient account retention representative demonstrates understanding of disease process, treatment [...] for appropiateness to involve patient in care. [facility]04-17-2024 Physician Emergency department Note* Dayna Doe, POT OPERATOR-OPERATING SYSTEMS SPECIALIST - 12/20/2023 4:18 PM EDT Images from [...] History: Diagnosis Date Anxiety Deep vein thrombosis ([facility]) Dental disease no teeth Depression Diabetes mellitus type I ([facility]) Elevated cholesterol GERD (gastroesophageal reflux disease) Hyperlipidemia Hypertension Lymphadenopathy 2023 MR (mental retardation) Obesity Panic disorder Visual impairment Past Surgical History: Procedure Laterality Date CHOLECYSTECTOMY COLONOSCOPY 2021 ENDOBRONCHIAL ULTRASOUND BRONCHOSCOPY N/A 11/22/2023 Performed by Libby Finley MD at [facility] TONSILLECTOMY TUBAL LIGATION Bilateral 2018 Travel [...] rocephin [RK] 1934 Discussed with Erin Mendez APRN-[facility] for Dr Graff who agrees to admit [...] and management services were performed by the AGENCY CASHIER/PA-C under my supervision/collaborationwith my participation. I have reviewed all pertinent clinical information, including history, physical exam and plan. Provider Statement: By electronically signing this emergency patient record, the Emergency Physician/AGENCY CASHIER/PA-C attests that all entries made into the electronic medical record by the scribe prior to the Physician/AGENCY CASHIER/PA-C signature reflect an accurate accounting of the evaluation and care rendered by that Emergency Physic mustapha/AGENCY CASHIER/PA-C. The Emergency Physician/AGENCY CASHIER/PA-C assumes full responsibility for those entries. DUSTIN Mcneill 12/20/23 1623 Anamy[employer]ire Truex 12/20/23 1916 Anamya Truex 12/20/23 1923 DUSTIN Mcneill 12/20/23 1938 [facility]04-17-2024 Emergency department Note* DUSTIN Mcneill - [...] 11/22/2023 Performed by Libby Finley MD at [facility] TONSILLECTOMY TUBAL LIGATION Bilateral 2018 Travel [...] and management services were performed by the AGENCY CASHIER/PA-C under my supervision/collaborationwith my participation. I have reviewed all pertinent clinical information, including history, physical exam and plan. Provider Statement: By electronically signing this emergency patient record, the Emergency Physician/AGENCY CASHIER/PA-C attests that all entries made into the electronic medical record by the scribe prior to the Physician/AGENCY CASHIER/PA-C signature reflect an accurate accounting of the evaluation and care rendered by that Emergency Physic mustapha/AGENCY CASHIER/PA-C. The Emergency Physician/AGENCY CASHIER/PA-C assumes full responsibility for those entries. DUSTIN Mcneill 12/20/23 1623 Anamya Truex 12/20/23 1916 Anamya Truex 12/20/23 192 DUSTIN Mcneill 12/20/231937 * Bethanie Bradford RN - 12/20/2023 3:56 PM EDT Pt been feeling sob for a week. Did not contact pcp documented in this encounterNorwalk [facility] Hospital04-[facility]24 Emergency department Triage note* Bethanie Bradford RN - 12/20/2023 3:56 PM EDT Pt been feeling sob for a week. Did not contact pcp [id number] Miscellaneous Notes* Telephone Encounter - Libby Finley [...] Patient questions were answered. documented in this encounterUniversity Hospitals Beachwood Medical CenterLucidux Rehabilitation Institute Of [id number] Telephone encounter Note* Telephone Encounter - Libby [...] and polyclonal B-cells. Patient questions were answered. [facility] Work Phone: [phone] Miscellaneous Notes* Telephone Encounter - [place] 04/24/2024 [...] cardiac clearance, please advise. Call back # [phone] * Telephone Encounter - UYEN Gunter - 04/24/2024 11:13 AM EDT Notified [facility] and cx sx * Telephone Encounter [...] - 04/18/2024 3:52 PM EDT Jacqueline from [facility] pre surgery called regarding patient carissa santos 1980. she said looked at her Pat and said she needs to have an echo, that she needs evaluation for pulmonary hypertension. Please advise documented in this encounterUniversity of Missouri Children's [id number] Instructions* Pre- Procedure Instructions - Katelyn Allred RN - 11/15/2023 9:09 AM EDT Your surgery/procedure is scheduled at [facility] on 11/22/23 at 1:30 pm Arrival Time 11:30 am [facility] Address: [address] [place] [address] in [address] Parking lot located on [facility]. Report to the Entrance B. Check in at the information desk the surgery. The waiting room located on the second floor. If you have any questions prior to surgery, please call Pre-Admission Clinic at [phone] between 7:30 am and 4:30 pm Monday through Monday. If you have questions the morning of surgery, please call the Pre-op Department at [phone]. Notify your SURGEON if you develop any [...] a [facility] facility, please call [phone] ([phone]). Do not use lotions, creams, powders, perfume, [...] RIGHTS AND RESPONSIBILITIES As a patient at [facility], you have the right to: Receive medical care and be informed of who is taking care of you Be treated with dignity and respect Have a family member/account retention representative of choice and your physician notified of your admission Receive information and actively participate in decisions about your care and treatment Refuse care, treatment and services Decide who may provide your support and speak for you Access zoroastrian and spiritual services Participate in ethical issues [...] of hospital charges and payment methods Patient/patient account retention representative responsibilities are to: Provide information about health status to facilitate care, treatment and services Follow the treatment, plan, keep appointments and speak up when you do not understand the plan Respect the rights of other patients and healthcare personnel Follow organizational rules and regulations that support quality care and a safe environment Fulfill financial obligations as promptly as possible [facility]03-13-2024 Miscellaneous Notes* Pre-Procedure Instructions - Katelyn Allred RN - 11/15/2023 9:09 AM EDT Your surgery/procedure is scheduled at [facility] on 11/22/23 at 1:30 pm Arrival Time 11:30 am [facility] Address: [address] [place] [address] Park in P1 Parking lot located on [facility]. Report to the Entrance B. Check in at the information desk the surgery. The waiting room located on the second floor. If you have any questions prior to surgery, please call Pre-Admission Clinic at [phone] between 7:30 am and 4:30 pm Monday through Monday. If you have questions the morning of surgery, please call the Pre-op Department at [phone]. Notify your SURGEON if you develop any [...] would like to schedule therapy at a [facility] facility, please call [phone] ([phone]). Do not use lotions, creams, powders, perfume, [...] RIGHTS AND RESPONSIBILITIES As a patient at [facility], you have the right to: Receive medical care and be informed of who is taking care of you Be treated with dignity and respect Have a family member/account retention representative of choice and your physician notified of your admission Receive information and actively participate in decisions about your care and treatment Refuse care, treatment and services Decide who may provide your support and speak for you Access zoroastrian and spiritual services Participate in ethical issues [...] of hospital charges and payment methods Patient/patient account retention representative responsibilities are to: Provide information about health status to facilitate care, treatment and services Follow the treatment, plan, keep appointments and speak up when you do not understand the plan Respect the rights of other patients and healthcare personnel Follow organizational rules and regulations that support quality care and a safe environment Fulfill financial obligations as promptly as possible documented in this encounterNorwalk Memorial Hospital03-08-2024 History of Present illness Narrative* Libby Finley MD - 11/10/2023 11:00 AM EST Images from the original note were not included. [facility] [address] [phone] Subjective: Chief Complaint Mediastinal lymphadenopathy HPI The [...] at rest. No wheezing She worked in [employer] in the past with no significant exposure to chemicals. No exposure to asbestos. She does not work since 3-4 years. She lives with her in apartment in [place] Review of Systems Constitutional: Negative. Negative for [...] this note were generated using voice recognition M*Ever[employer] dictation software. Although every effort was made to ensure the accuracy of this automated hand crocheter, some errors in hand crocheter may have occurred. documented in this encounterNorwalk Memorial Hospital03-07-2024 History of Present illness Narrative* Ana Mckeon CMA - 11/09/2023 9:15 AM EST Pulm referral for EBUS for pet positive mediastinal lymph node documented in this encounterNorwalk Memorial Hospital03-07-2024 History of Present illness Narrative* Ryan [...] Medical History: Diagnosis Date Deep vein thrombosis ([facility]) Diabetes mellitus type I ([facility]) GERD (gastroesophageal reflux disease) Hyperlipidemia MR (mental [...] min Stress: No Stress Concern Present (06/05/2023) [employer] - Occupational Stress Questionnaire [...] participate in her care documented in this encounterNorwalk Memorial Hospital02-20-2024 History of Present illness Narrative* Bethanie Loredo - 10/24/2023 3:48 PM EST Lvm at the referrring office to follow up if patient had pet/ct scan completed documented in this encounterNorwalk Memorial Hospital02-06-2024 History of Present illness Narrative* Bethanie Loredo - 10/10/2023 11:21 AM EST Contacted the referring office to see if patient got PET/CT scan completed. Referring office is still waiting for testing to be completed documented in this encounterNorwalk Memorial Hospital02-06-2024 History of Present illness Narrative* Dayanara Wheatley LPN - 10/10/2023 8:00 AM EST Reason for Appointment: Patient ID: Carissa Santos is a 43 y.o. female who presents for Amenorrhea Patient presents today via telephone call for a telehealth appointment. Patients Phone #: [phone] (mobile) Current Medications: has a current medication [...] rhinitis due to allergen 10/01/2009 Anxiety state ([facility]) 10/01/2009 Carpal tunnel syndrome of left wrist 04/06/2023 Contracture, unspecified ankle 04/06/2023 Edema 04/06/2023 Equinus deformity of left foot 04/06/2023 Gastroesophageal reflux disease 04/06/2023 Genital warts 04/06/2023 Hot flashes due to menopause 04/06/2023 Type 2 diabetes mellitus with microalbuminuria, with long-term current use of insulin ([facility]) 04/06/2023 Internal derangement of left shoulder 04/06/2023 Irritable bowel syndrome with diarrhea 04/06/2023 Mild developmental delay 09/29/2021 Migraine without aura, not refractory ([facility]) 04/06/2023 Mild episode of recurrent major depressive disorder (HCC) ([facility]) 04/06/2023 Morbid obesity ([facility]) 11/21/2022 Type 2 diabetes mellitus with polyneuropathy ([facility]) 06/10/2021 Obstructive sleep apnea syndrome 09/30/2009 Osteoarthritis of knee 04/06/2023 Overactive bladder 04/06/2023 Panic disorder without agoraphobia ([facility]) 11/12/2009 Dyslipidemia ([facility]) 04/22/2010 Spondylosis without myelopathy 08/10/2010 Cavitary lesion of lung 08/10/2023 Other chest pain 08/10/2023 Resolved Ambulatory Problems Diagnosis Date Noted Acute kidney injury (DREW) with acute tubular necrosis (ATN) ([facility]) 09/30/2021 Acute pain of left shoulder 04/06/2023 Shoulder joint pain 04/06/2021 Convulsions in the 09/30/2009 Cubital tunnel syndrome on left 11/04/2022 Fecal incontinence 06/22/2016 High anion gap metabolic acidosis 09/30/2021 Hyperglycemia 03/01/2019 Mild intellectual disability ([facility]) 09/30/2009 Other chronic pain 04/06/2023 Pneumonia due to infectious organism 09/29/2021 Poorly controlled diabetes mellitus ([facility]) 08/10/2015 Normal gynecologic examination 06/09/2015 Missed period 04/06/2023 DKA, type 1, not at goal ([facility]) 09/27/2021 Type 2 diabetes mellitus ([facility]) 09/30/2009 Past Medical History: Diagnosis Date Ankle fracture Anxiety and depression ([facility]) At low risk for fall Bilateral leg edema Chest pain, central Chronic left shoulder pain Chronic pain Epilepsy ([facility]) JOHN (generalized anxiety disorder) ([facility]) GERD (gastroesophageal reflux disease) History of being hospitalized History of medical problems Hyperlipidemia ([facility]) Insomnia, persistent MDD (major depressive disorder), recurrent episode, mild ([facility]) ([facility]) Migraine without aura and without status migrainosus, not intractable ([facility]) Morbid obesity with BMI of 40.0-44.9, adult ([facility]) Nocturnal hypoxemia Nonsmoker OAB (overactive bladder) Obesity JOSE M (obstructive sleep apnea) Postoperative urinary retention Primary osteoarthritis of left knee Seasonal allergies Type 2 diabetes mellitus with diabetic polyneuropathy, with long-term current use of insulin ([facility]) Type 2 diabetes mellitus with hyperglycemia, with long-term current use of insulin ([facility]) Type 2 diabetes mellitus without complication ([facility]) Vitamin D deficiency Family History Problem Relation [...] 12/29/2017 Diagnostic laparoscopy LAPAROTOMY OVARIAN CYSTECTOMY 03/31/2023 [place] ARTHROCENTESIS ASPIR&/INJ MAJOR JT/BURSA W/O US Right [...] labs and ultrasound ordered and faxed to [place] for pt to have obtained. Will notify when results come in. Pt voiced understanding. Documented by Dayanara Wheatley LPN on behalf of: Feliz Benz DO documented in this encounterUniversity of Missouri Children's [id number] History of Present illness Narrative* Barry Snowden [...] be reached in office, [facility] if any symptoms worsened or new symptoms develop for requiring urgent evaluation. Barry Snowden POT OPERATOR-OPERATING SYSTEMS SPECIALIST documented in this encounterUniversity of Missouri Children's [id number] Note [id number]#1.00[facility]01-23-2024 [id number]#1.00[facility] 09-25-[address] [facility] SURGERY Clinical Discharge Summary PERSON INFORMATION Name CARISSA SANTOS Age 43 Years 1980 Sex FEMALE Language Kosovan PCP DIAZ DALTON Marital Status Phone Med Service Ambulatory Surgery Acct# Arrival 09/25/2023 06:07:34 Visit Reason Surgery- Left carpal tunnel release Acuity LOS 018 22:07 Address: [facility] [id number] Comment: PROVIDER INFORMATION VITALS INFORMATION Vital Sign [...] mouth) every day. dulagluti (more content not included)...[facility] [id number] Note Procedure: Decompression of median nerve left [...] [Verified on: 09/25/2023 08:41 EST] Gary Miller [facility]01-08-2024 History of Present illness Narrative* Bethanie Loredo - 09/11/2023 2:30 PM EST 2nd attempt to contact referring office for most recent office notes and testing documented in this encounterNorwalk Memorial Hospital04-05-2023 Note Attestation signed by Robson Paz MD [...] Medical History: Diagnosis Date Anxiety Diabetes mellitus ([facility]) Objective Exam: - Incision with slight [...] Ousmane Perez MD Orthopedic Surgery, PGY-5 Pager: [phone] 12/07/22 11:51 AM By using the attestations [...] may be an additional personal documentation from me.[facility]03-20-2023 NotePatient: Carissa Santos Procedure Summary Date: 11/21/22 Room / Location: [facility] OR [address] [place] [address] OR Anesthesia Start: 1047 Anesthesia Stop: 1144 [...] were no known notable events for this encounter.[facility]03-20-2023 NotePatient: Carissa Santos Procedure Information Anesthesia Start Date/Time: 11/21/221046 Procedure: ULNAR NERVE DECOMPRESSION (Left: Forearm) Location: [address] Surgeons: Robson Paz MD Relevant [...] patient. Plan discussed with CAA. [facility] Note Patient: Carissa Santos Procedure Summary Date: 11/21/22 Room / Location: [address] OR Anesthesia Start: 1046 Anesthesia Stop: Procedure: ULNAR NERVE DECOMPRESSION (Left: Forearm) Diagnosis: Cubital tunnel syndrome on left (Cubital tunnel syndrome on left [G56.22]) Surgeons: Robson Paz MD Responsible Provider: Paul Smith MD Anesthesia Type: MAC ASA Status: Not recorded Anesthesia Post Transport [facility] Oxygen Flow (L/min): 8 Patient Monitor: direct observation Transport: uneventful [facility] Peripheral Block Patient location during procedure: pre-op Start time: 11/21/2022 10:15 AM End time: 11/21/2022 10:30 AM Reason for block: primary anesthetic and at surgeon's request Staffing Performed: resident/ACOUSTICAL TILE DRILL PRESS OPERATOR/CAA Anesthesiologist: Paul Smith MD Resident/ACOUSTICAL TILE DRILL PRESS OPERATOR: Mike Calloway MD Preanesthetic Checklist Completed: [...] Heart rate change: no Slow fractionated injection: [facility] Note Attestation signed by Robson Paz MD [...] Santos is a 42 y.o. year old vfxl-jcca-vqhiinch female presenting for evaluation of left hand [...] Past Medical History: Diagnosis Date Diabetes mellitus ([facility]) Objective General: Body mass index is 41.38 kg/m???. There were no vitals filed for this visit. No acute distress, comfortable Respiratory: Unlabored breathing with normal rate, no cough Cardiovascular: Warm well perfused extremities Psych: Appropriate mood behavior Left Hand: Inspection- no ecchymosis, no edema, no effusion Thumb: normal A1 cairna and AROM, Index finger: normal A1 carina and AROM, Long finger: normal A1 carina and AROM, Ring finger: normal A1 carina and AROM, and Small finger: normal A1 carina and AROM Strength: liability claims adjuster 5/5, thumb 5/5, interossei 5/5 Sensation: intact [...] intervention - Instructed patient that our surgical services asst reach out regarding future surgical date - Surgery will be performed under regional anesthesia -Return to clinic for surgical intervention -Call the orthopedic office any questions or concerns Michael Ward MD Orthopedic Surgery Resident Physician Pager: [phone] 11/04/22 12:35 PM By using the attestations [...] may be an additional personal documentation from me.[facility]01-30-2022 History of Present illness Narrative* Guido Salas DO - 10/03/2021 12:57 PM EST Images from the original note were not included. [facility] Office: [phone] Hemal Charles DO, Steve Raaz DO, Costa Cai DO, Gallito Lino DO, Natalee Negrete MD, Coreen Bryant MD, Shruti Bautista MD, Zulay Bueno MD, Priya Paul MD, Kevin Collins MD, Lyndsey Galindo MD, Morro Overton DO, Guido Salas DO, Rakel Aquino MD, Libby Samuel DO, MD Hazel, Kalyan Corbett MD, Shahzad Faria MD, Cee Casarez MD, Donavan Richardson MD, Autumn David CNP, Laurie Hernandez OPERATING SYSTEMS SPECIALIST, Veronica Garcia OPERATING SYSTEMS SPECIALIST, Ada Rascon, SODA FOUNTAIN OPERATOR, Jamal Soto, OPERATING SYSTEMS SPECIALIST, Shellie Patton, OPERATING SYSTEMS SPECIALIST, Dahiana Albarado, OPERATING SYSTEMS SPECIALIST, Zandra Holly, OPERATING SYSTEMS SPECIALIST, Andi Mcdonald OPERATING SYSTEMS SPECIALIST, ROSAURA Marr-Shane, Dahiana Vyas DNP, Christina Tanner DNP, Karyna Hernandez, LUCIANO, Corina Bedoya, LUCIANO, Amber Dewey CNP, Archana Lockhart CNP, Emili Stapleton CNP, Nina Anthony CNP [facility] IN-PATIENT SERVICE [facility] Progress Note 10/03/2021 12:57 PM Name: Carissa Santos Acct: [id number] Room: [address] [place] [address] IP Day: 5 Admit Date: 09/28/2021 9:38 AM PCP: Diaz Dalton MD Code Status: Full Code Subjective: C/C: DKA Interval History Status: unchanged. Patient seen and examined, feeling better today. Discharge, plan for transfer to be Brief History: Carissa Santos is a 41 year old female who was [facility] with [facility]. Her presentation to ED on 09/26/21 showed her initial blood sugar of 816 with a beta-hydroxybutyrate 11.24, anion gap >25 with (+) ketones in urine. She was started on DKA protocol with bicarb drip, IVF and insulin drip and was transferred to [facility] on 09/28/21 for ICU admission and further [...] mm pulmonary nodule noted [facility] from [facility]. Will need repeat CT in 3 months [...] history of MRDD initially went to the [facility] for nausea, shivering, chills and altered mental status. Patient was found to have DKA with bilateral lower lobe pneumonia. CTA negative for PE but it showed 13 mm pulmonary nodule. Patient was transferred to [facility] for further care. In ICU she was [...] Date 10/03/21 0000 - 10/03/21 235 Shift [id number] 6937-6762 6107-2420 24 Hour Total INTAKE P.O.(mL/kg/hr) 360(0.4) 360 Shift Total(mL/kg) 360(3.6) 360(3.6) OUTPUT Shift Total(mL/kg) Weight (kg) 101.2 101.2 101.2 101.2 LABS: ABGs: No results for input(s): POCPH, POCPCO2, POCPO2, POCHCO3, [id number] in the last 72 hours. CBC: Recent [...] injury (DREW) with acute tubular necrosis (ATN) ([facility]) High anion gap metabolic acidosis Resolved Problems: * No resolved hospital problems. * Community-acquired pneumonia MRDD 13 mm lung nodule Plan: Ok to dc Follow-up outpatient with repeat CT scan in 3 months. Albuterol inhaler Please note that this chart was generated using voice recognition One-Song dictation software. Although every effort was made to ensure the accuracy of this automated hand crocheter, some errors in hand crocheter may have occurred. * Li Phelan RN - 10/02/2021 3:55 PM EST [facility] spoke with pt's mother Jeanine in regards to patient's discharge. Jeanine states she knows howto perform the dressing on pt's arm and is comfortable doing so. Pt will need a ride home. [facility] will reach out to case management for setting up a ride. * Guido Salas DO - 10/02/2021 1:51 PM EST Images from the original note were not included. [facility] Office: [phone] Hemal Charles DO, Steve Raza DO, Costa Cai DO, Gallito Lino DO, Natalee Negrete MD, Coreen Bryant MD, Shruti Bautista MD, Zulay Bueno MD, Priya Paul MD, Kevin Collins MD, Lyndsey Galindo MD, Morro Overton DO, Guido Salas DO, Rakel Aquino MD, Libby Samuel DO, MD Hazel, Kalyan Corbett MD, Shahzad Faria MD, Cee Casarez MD, Donavan Richardson MD, Autumn David, OPERATING SYSTEMS SPECIALIST, Laurie Hernandez, OPERATING SYSTEMS SPECIALIST, Veronica Garcia, OPERATING SYSTEMS SPECIALIST, Ada Rascon, [facility], Jamal Soto, OPERATING SYSTEMS SPECIALIST, Shellie Patton, OPERATING SYSTEMS SPECIALIST, Dahiana Albarado, OPERATING SYSTEMS SPECIALIST, Zandra Holly, OPERATING SYSTEMS SPECIALIST, Andi Mcdonald, OPERATING SYSTEMS SPECIALIST, YANIRA MarrC, Dahiana Vyas, DNP, Christina Tanner, DNP, Karyna Hernandez, OPERATING SYSTEMS SPECIALIST, Corina Bedoya, OPERATING SYSTEMS SPECIALIST, Amber Dewey, OPERATING SYSTEMS SPECIALIST, Archana Lockhart, OPERATING SYSTEMS SPECIALIST, Emili Stapleton, OPERATING SYSTEMS SPECIALIST, Nina Anthony, OPERATING SYSTEMS SPECIALIST [facility] IN-PATIENT SERVICE [facility] Progress Note 10/02/2021 1:51 PM Name: Carissa Santos Acct: [id number] Room: 0161/0161-01 IP Day: 4 Admit Date: [...] old female who was transferred [facility] with [facility]. Her presentation to ED on 09/26/21 showed her initial blood sugar of 816 with a beta-hydroxybutyrate 11.24, anion gap >25 with (+) ketones in urine. She was started on DKA protocol with bicarb drip, IVF and insulin drip and was transferred to [facility] on 09/28/21 for ICU admission and further treatment. Inaddition she had an elevated D-dimer. CTPE (-) for PE but concerning for RML pulmonary nodule and ill-defined ground glass opacification in the RUL concerning for PNA. She did have episodes of vomiting which have subsided. She was bridged to lantus insulin and insulin drip was discontinued. Transfer to [facility] 09/29/21 Review of Systems: Constitutional: [...] injury (DREW) with acute tubular necrosis (ATN) ([facility]) 09/30/2021 Yes High anion gap metabolic [...] mm pulmonary nodule noted on CT from [facility]. Will need repeat CT in 3 months based on Fleischner criteria Guido Salsa DO 10/02/2021 1:51 PM * Keith Bailey [...] history of MRDD initially went to the [facility] for nausea, shivering, chills and altered mental status. Patient was found to have DKA with bilateral lower lobe pneumonia. CTA negative for PE but it showed 13 mm pulmonary nodule. Patient was transferred to [facility] for further care. In ICU she was [...] [Urine:400] Date 10/02/21 0000 - 10/02/212358 Shift [id number] 1943-2392 9375-3340 24 Hour Total INTAKE I.V.(mL/kg) 522(5.2) 522(5.2) Shift Total(mL/kg) 522(5.2) 522(5.2) OUTPUT Shift Total(mL/kg) Weight (kg) 101.2 101.2 101.2 101.2 LABS: ABGs: No results for input(s): POCPH, POCPCO2, POCPO2, POCHCO3, [id number] in the last 72 hours. CBC: Recent [...] Keith Bailey MD PGY-3, Internal medicine resident [facility], [place], [place] Please note that this chart was generated using voice recognition iPositionon dictation software. Although every effort was made to ensure the accuracy of this automated hand crocheter, some errors in hand crocheter may have occurred. Associated attestation - Gian Marr MD - 10/02/2021 6:49 PM EST Attending Physician Statement I have discussed the case of Carissa Santos, including pertinent history and exam findings with the resident/fellow/medical student/AGENCY CASHIER/PA. I have seen and examined the patient and the timmons elements of the encounter have been performed by me. I agree with the assessment, plan and orders as documented by the resident/fellow/medical student/AGENCY CASHIER/PA With changes made to the note as [...] for the lung nodule identified in an [facility] films CT scan of the abdomen with trace bilateral pleural fluid and mild bibasilar atelectasis Patient will follow up with her primary care physician and cash register mechanic in [place] as she does nothave any transportation to come to [facility] Gian Marr MD 10/02/2021 6:48 PM * Li Phelan RN - 10/02/2021 10:21 AM EST [facility] notified Pt was in SVT with HR [...] cough or weak non-productive cough GOSIA KOLB, INFORMATION AND REFERRAL DIRECTOR 1:03 PM FEMALE MALE FEV1 Predicted [...] 10/01/2021 12:43 PM EST Physical Therapy Facility/Department: [address] [facility] Daily Treatment Note NAME: [...] 0-100% Score: 46.58 (10/01/21 1230) Mobility Inpatient [facility] G-Code Modifier : CK (10/01/21 123) Goals [...] 10/01/2021 12:08 PM EST Called pt room ([id number]) and number in chart but no answer. [...] from the original note were not included. [facility] Office: [phone] Hemal Charles DO, Steve Raza DO, Costa Cai DO, Gallito Lino DO, Natalee Negrete MD, Coreen Bryant MD, Shruti Bautista MD, Zulay Bueno MD, Priya Paul MD, Kevin Collins MD, Lyndsey Galindo MD, Morro Overton DO, Guido Salas DO, Rakel Aquino MD, Libby Samuel DO, MD Hazel, Kalyan Corbett MD, Shahzad Faria MD, Cee Casarez MD, Donavan Richardson MD, Autumn David CNP, Laruie Hernandez CNP, Veronica Garcia CNP, Ada Rascon, VICENTE, Jamal Soto, OPERATING SYSTEMS SPECIALIST, Shellie Patton, OPERATING SYSTEMS SPECIALIST, Dahiana Albarado, OPERATING SYSTEMS SPECIALIST, Zandra Holly, OPERATING SYSTEMS SPECIALIST, Andi Mcdonald, OPERATING SYSTEMS SPECIALIST, Terrance Smalls PA-C, Dahiana Vyas, KIMBERLY, Christina Tanner, KIMBERLY, Karyna Hernandez, OPERATING SYSTEMS SPECIALIST, Corina Bedoya, OPERATING SYSTEMS SPECIALIST, Amber Dewey, OPERATING SYSTEMS SPECIALIST, Archana Lockhart, OPERATING SYSTEMS SPECIALIST, Emili Stapleton, OPERATING SYSTEMS SPECIALIST, Nina Anthony, OPERATING SYSTEMS SPECIALIST [facility] IN-PATIENT SERVICE [facility] Progress Note 10/01/2021 11:21 AM Name: Carissa Santos Acct: [id number] Room: 01609-04 IP Day: 3 Admit Date: [...] old female who was [facility]. Her presentation to ED on 09/26/21 showed her initial blood sugar of 816 with a beta-hydroxybutyrate 11.24, anion gap >25 with (+) ketones in urine. She was started on DKA protocol with bicarb drip, IVF and insulin drip and was transferred to [facility] on 09/28/21 for ICU admission and further [...] injury (DREW) with acute tubular necrosis (ATN) ([facility]) 09/30/2021 Yes High anion gap metabolic [...] history of MRDD initially went to the [facility] for nausea, shivering, chills and altered mental status. Patient was found to have DKA with bilateral lower lobe pneumonia. CTA negative for PE but it showed 13 mm pulmonary nodule. Patient was transferred to [facility] for further care. In ICU she was [...] Date 10/01/21 0000 - 10/01/21 2359 Shift [id number] 6536-0843 5001-3723 24 Hour Total INTAKE Shift Total(mL/kg) OUTPUT Urine(mL/kg/hr) 600(0.7) 600 Shift Total(mL/kg) 600(5.9) 600(5.9) Weight (kg) 101.2 101.2 101.2 101.2 LABS: ABGs: No results for input(s): POCPH, POCPCO2, POCPO2, POCHCO3, [id number] in the last 72 hours. CBC: Recent [...] DUBLINIENSIS 10 to 50,000 CFU/ML* YEAST, NOT SEHNG ALBICANS OR SHENG DUBLINIENSIS 10 to 50,000 [...] Keith Bailey MD PGY-3, Internal medicine resident [facility], [place], [place] Please note that this chart was generated using voice recognition Dragon dictation software. Although every effort was made to ensure the accuracy of this automated hand crocheter, some errors in hand crocheter may have occurred. Attending Physician Statement I [...] x-ray PA lateral view tomorrow. Images from [facility] of CT scan is not available at this time we will requested again. Patient is aware and discussed with her again that she will need CT scan of the chest for follow-upof right middle lobe lung nodule in 3 months. Patient follow- up locally in [facility] with CT scan and outpatient pulmonary CT scan Discussed with nursing staff, treatment and plan discussed. Please note that this chart was generated using voice recognition iPositionon dictation software. Although every effort was made to ensure the accuracy of this automated hand crocheter, some errors in hand crocheter may have occurred. Leonel Draper MD 10/01/2021 [...] Ambulation Assistance: Independent Transfer Assistance: Independent Active Casework Supervisor: No Patient's Casework Supervisor Info: mother drives Occupation: Unemployed Leisure & [...] Mary Wong - 09/30/2021 4:47 PM EST [facility] reached out to community facilitator on 2C to obtain lung scans from [facility]. clerk carrier attempting to reach out, production underwriter will reevaluate * Jody Ro RD, LD - 09/30/2021 4:00 PM EST Attempted assessment/education but critical care unit nurse assisting pt with personal care/needs. * Leonel [...] history of MRDD initially went to the [facility] for nausea, shivering, chills and altered mental status. Patient was found to have DKA with bilateral lower lobe pneumonia. CTA negative for PE but it showed 13 mm pulmonary nodule. Patient was transferred to [facility] for further care. In ICU she was [...] Date 09/30/21 0000 - 09/30/21 2359 Shift [id number] 1245-9776 5397-5866 24 Hour Total INTAKE Shift Total(mL/kg) OUTPUT Urine(mL/kg/hr) 500(0.6) 1000 1500 Shift Total(mL/kg) 500(4.9) 1000(9.9) 1500(14.8) Weight (kg) 101.2 101.2 101.2 101.2 LABS: ABGs: No results for input(s): POCPH, POCPCO2, POCPO2, POCHCO3, XDHX0ULN in the last 72 hours. CBC: Recent [...] -- YEAST, NOT SHENG ALBICANS OR SHENG [id number] to 50,000 CFU/ML* YEAST, NOT SHENG ALBICANS [...] Keith Bailey MD PGY-3, Internal medicine resident [facility], [place], [place] Please note that this chart was generated using voice recognition iPositionon dictation software. Although every effort was made to ensure the accuracy of this automated hand crocheter, some errors in hand crocheter may have occurred. Attending Physician Statement I [...] CT scan of thechest done in [facility] before she was transferred shows right upper lobe possible groundglass infiltrate/pneumonia and right middle lobe 13 mm nodule which according to radiology report (I do not have any images available from [facility]) could be infectious inflammatory or other [...] this chart was generated using voice recognition iPositionon dictation software. Although every effort was made to ensure the accuracy of this automated hand crocheter, some errors in hand crocheter may have occurred. Leonel Draper MD 09/30/2021 3:36 PM * Mary Wong - 09/30/2021 12:51 PM EST RN attempted to call mother of patient, Lynne, to give update on pt's status, with no answer. Will try again later. * Chinyere Black, PT - 09/30/2021 12:39 PM EST Physical Therapy Facility/Department: [address] [facility] Initial Assessment NAME: Carissa [...] Ambulation Assistance: Independent Transfer Assistance: Independent Active Casework Supervisor: No Patient's Casework Supervisor Info: mother drives Occupation: Unemployed Leisure & [...] Bed mobility Supine to Sit: Minimal assistance (PAN HELPER) Sit to Supine: (retired to bedside chair [...] from the original note were not included. [facility] Office: [phone] Hemal Charles DO, Steve Raza DO, Costa Cai DO, Gallito Lino DO, Natalee Negrete MD, Coreen Bryant MD, Shruti Bautista MD, Zulay Bueno MD, Priya Paul MD, Kevin Collins MD, Lyndsey Galindo MD, Morro Overton DO, Guido Salas DO, Rakel Aquino MD, Libby Samuel DO, MD Hazel, Kalyan Corbett MD, Shahzad Faria MD, Cee Casarez MD, Donavan Richardson MD, Autumn David, OPERATING SYSTEMS SPECIALIST, Laurie Hernandez, OPERATING SYSTEMS SPECIALIST, Veronica Garcia, OPERATING SYSTEMS SPECIALIST, Ada Rascon, SODA FOUNTAIN OPERATOR, Jamal Soto, OPERATING SYSTEMS SPECIALIST, Shellie Patton, OPERATING SYSTEMS SPECIALIST, Dahiana Albarado, OPERATING SYSTEMS SPECIALIST, Zandra Holly, OPERATING SYSTEMS SPECIALIST, Andi Mcdonald, OPERATING SYSTEMS SPECIALIST, ROSAURA Marr-C, Dahiana Vyas, DNP, Christina Tanner, DNP, Karyna Hernandez, OPERATING SYSTEMS SPECIALIST, Corina Bedoya, OPERATING SYSTEMS SPECIALIST, Amber Dewey, OPERATING SYSTEMS SPECIALIST, Archana Lockhart, OPERATING SYSTEMS SPECIALIST, Emili Stapleton, OPERATING SYSTEMS SPECIALIST, Nina Anthony, OPERATING SYSTEMS SPECIALIST [facility] IN-PATIENT SERVICE [facility] Progress Note 09/30/2021 11:41 AM Name: Carissa Santos Acct: [id number] Room: [address] [place] [address] Day: 2 Admit Date: 09/28/2021 9:38 AM PCP: Diaz Dalton MD Code Status: Full Code Subjective: C/C: DKA Interval History Status: unchanged. Pt seen and evaluated this morning. She continues to feel ill. Continues to have a dry cough. She is denying fever, chills, nausea, vomiting, diarrhea. Brief History: Carissa Santos is a 41 year old female who was transferred [facility] with D[facility]. Her presentation to ED on 09/26/21 showed her initial blood sugar of 816 with a beta-hydroxybutyrate 11.24, anion gap >25 with (+) ketones in urine. She was started on DKA protocol with bicarb drip, IVF and insulin drip and was transferred to [facility] on 09/28/21 for ICU admission and further treatment. Inaddition she had an elevated D-dimer. CTPE (-) for PE but concerning for RML pulmonary nodule and ill-defined ground glass opacification in the RUL concerning for PNA. She did have episodes of vomiting which have subsided. She was bridged to lantus insulin and insulin drip was discontinued. Transfer to [facility] 09/29/21 Review of Systems: Constitutional: [...] Patient's name: Carissa Santos Patient's account/billing number: [id number] Patient's Date of : 1980 Age: 41 [...] history of MRDD, diabetes mellitus came from [facility] after presenting there with altered mental status and found to be in DKA. Over that patient was startedon an insulin drip, Ringer lactate, bicarb drip. Transferred to [facility] for further management. Overnight was bridged to Lantus, tolerating diet. On admission her D-dimer was high, CT PE negative for emboli but concerning for pneumonia as well as right middle lobe 13 mm pulmonary nodule. Patient is being treated with ceftriaxone and azithromycin for pneumonia and UTI, Diflucan added for yeast in urine. business services clerk consulted Current Vitals: BP (!) 109/59 Pulse [...] Patient's name: Carissa Santos Patient's account/billing number: [id number] Patient's Date of : 1980 Age: 41 [...] degree Ulcer prophylaxis: [] PPI Agent, [] [id number], [] Sucralfate, [] Other: Not indicated Glycemic [...] Giron Sra, MD Department of Critical Care [facility] [place] 09/29/2021, 8:19 AM Associated attestation - Gian Marr MD - 09/29/2021 7:26 PM EST Attending Physician Statement I have discussed the case of Carissa Santos, including pertinent history and exam findings with the resident/fellow/medical student/AGENCY CASHIER/PA. I have seen and examined the patient and the timmons elements of the encounter have been performed by me. I agree with the assessment, plan and orders as documented by the resident/fellow/medical student/AGENCY CASHIER/PA With changes made to the note as [...] monitor We will transfer the patient to [facility] bed and we will follow the [...] with pastoral care, Ethics consult entered per executor of estate's recommendation for help with decision making and [...] Wound Volume (cm^3) 2.96 cm^3 Wound Assessment Subcutaneous;[place]/red Drainage Amount Small Drainage Description Serosanguinous Odor [...] gastric contents upon arrival. 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 Independent Med Delivery whole Wound Care Documentation [...] Hospice [address] [facility] [address] Dialysis Facility (if applicable) Name: Address: Dialysis Schedule: Phone: Fax: Supervisor Telephone Information/Emissions Testing And Repair Technician signature: PHYSICIAN SECTION Prognosis: Good Condition at Discharge: Stable Rehab Potential (if transferring to Rehab): Good Recommended Labs or Other Treatments After Discharge: care home assessment, medication education, wound care Rt upper [...] for pulmonary nodule evaluation [facility]: evaluation note* Diagnosis DKA, type 1, not at goal ([facility])- Primary 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, uncontrolled Pneumonia due to infectious organism Mental developmental delay Unspecified delay in development Acute kidney injury (DREW) with acute tubular necrosis (ATN) ([facility]) High anion gap metabolic acidosis Acidosis documented in this encounter [employer] Phone: evaletswbw note* Diagnosis Status post carpal tunnel release- Primary Other postprocedural status Amenorrhea Absence of menstruation documented in this encounter [facility] HealthcareEvaluation note* Diagnosis Amenorrhea Absence of menstruation documented in this encounter [facility] HealthcareEvaluation note* Diagnosis Type 2 diabetes mellitus with hyperglycemia, with long-term current use of insulin ([facility])- Primary [facility] encounter [facility] HealthcareEvaluation note* Diagnosis Post-operative pain- Primary Other acute postoperative pain documented in this encounter [facility] HealthcareEvaluation note* Diagnosis Mild episode of recurrent major depressive disorder (HCC) ([facility])- Primary Type 2 diabetes mellitus with microalbuminuria, with long-term current use of insulin ([facility]) JOHN (generalized anxiety disorder) ([facility]) Generalized anxiety disorder Migraine without aura and without status migrainosus, not intractable ([facility]) Irritable bowel syndrome with diarrhea Irritable bowel syndrome Gastroesophageal reflux disease without esophagitis Esophageal reflux Hot flashes due to menopause Morbid obesity ([facility]) Morbid obesity FPC (current) use of insulin (Z79.4) Obesity hypoventilation syndrome ([facility])- Primary Obesity hypoventilation syndrome Hypoxia Hypoxemia Type 2 diabetes mellitus with microalbuminuria, with long-term current use of insulin ([facility]) Right carpal tunnel syndrome Carpal tunnel syndrome Elevated blood-pressure reading without diagnosis of hypertension Elevated blood pressure reading without diagnosis of hypertension Type 2 diabetes mellitus with hyperglycemia, with long-term current use of insulin ([facility])- Primary Mild episode of recurrent major depressive disorder (HCC) ([facility]/HCC) JOHN (generalized anxiety disorder) ([facility]) Generalized anxiety disorder Carpal tunnel syndrome of left wrist Obesity hypoventilation syndrome ([facility]/HCC) Obesity hypoventilation syndrome Generalized edema Edema Irritable bowel syndrome with diarrhea Irritable bowel syndrome Gastroesophageal reflux disease without esophagitis Esophageal reflux Anxiety state ([facility]) Anxiety state, unspecified Type 2 diabetes mellitus with hyperglycemia, with long-term current use of insulin ([facility])- Primary Right carpal tunnel syndrome Carpal tunnel syndrome Chronic hypoxic respiratory failure ([facility]) Mild episode of recurrent major depressive disorder (HCC) ([facility]) JOHN (generalized anxiety disorder) ([facility] Generalized anxiety disorder Generalized edema 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 Spondylosis of unspecified site without mention of myelopathy 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 elsewhere ([facility]) Acute pain of right knee- Primary Type 2 diabetes mellitus with microalbuminuria, with long-term current use of insulin ([facility]) Right carpal tunnel syndrome Carpal tunnel syndrome Status post carpal tunnel release- Primary Other postprocedural status documented in this encounter [facility] HealthcareEvaluation note* Diagnosis Pulmonary hypertension ([facility])- Primary Other chronic pulmonary heart diseases documented in this encounter [facility] SystemEvaluation note* Diagnosis Mild episode of recurrent major depressive disorder (HCC) ([facility])- Primary Type 2 diabetes mellitus with microalbuminuria, with long-term current use of insulin ([facility]) JOHN (generalized anxiety disorder) ([facility]) Generalized anxiety disorder Migraine without aura and without status migrainosus, not intractable ([facility]) Irritable bowel syndrome with diarrhea Irritable bowel syndrome Gastroesophageal reflux disease without esophagitis Esophageal reflux Hot flashes due to menopause Morbid obesity ([facility]) 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.4) Obesity hypoventilation syndrome ([facility])- Primary Obesity hypoventilation syndrome Hypoxia Hypoxemia Type 2 diabetes mellitus with microalbuminuria, with long-term current use of insulin ([facility]) Right carpal tunnel syndrome Carpal tunnel syndrome Elevated blood-pressure reading without diagnosis of hypertension Elevated blood pressure reading without diagnosis of hypertension Type 2 diabetes mellitus with hyperglycemia, with long-term current use of insulin ([facility])- Primary Mild episode of recurrent major depressive disorder (HCC) ([facility]) JOHN (generalized anxiety disorder) ([facility]) Generalized anxiety disorder Carpal tunnel syndrome of left wrist Obesity hypoventilation syndrome ([facility]/HCC) Obesity hypoventilation syndrome Generalized edema Edema Irritable bowel syndrome with diarrhea Irritable bowel syndrome Gastroesophageal reflux disease without esophagitis Esophageal reflux Anxiety state ([facility]) Anxiety state, unspecified Type 2 diabetes mellitus with hyperglycemia, with long-term current use of insulin ([facility])- Primary Right carpal tunnel syndrome Carpal tunnel syndrome Chronic hypoxic respiratory failure ([facility]) Mild episode of recurrent major depressive disorder (HCC) ([facility]) JOHN (generalized anxiety disorder) ([facility]) Generalized anxiety disorder Generalized edema 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 Spondylosis of unspecified site without mention of myelopathy 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 elsewhere ([facility]) Acute pain of right knee- Primary Type 2 diabetes mellitus with microalbuminuria, with long-term current use of insulin ([facility]) Right carpal tunnel syndrome Carpal tunnel syndrome Anxiety state ([facility]) Anxiety state, unspecified documented in this encounter [facility] HealthcareEvaluation note* Diagnosis Mild episode of recurrent major depressive disorder (HCC) ([facility])- Primary Type 2 diabetes mellitus with microalbuminuria, with long-term current use of insulin ([facility]) JOHN (generalized anxiety disorder) ([facility]) Generalized anxiety disorder Migraine without aura and without status migrainosus, not intractable ([facility]) Irritable bowel syndrome with diarrhea Irritable bowel syndrome Gastroesophageal reflux disease without esophagitis Esophageal reflux Hot flashes due to menopause Morbid obesity ([facility]) Morbid obesity FPC (current) use of insulin (Z79.4) Obesity hypoventilation syndrome ([facility])- Primary Obesity hypoventilation syndrome Hypoxia Hypoxemia Type 2 diabetes mellitus with microalbuminuria, with long-term current use of insulin ([facility]) Right carpal tunnel syndrome Carpal tunnel syndrome Elevated blood-pressure reading without diagnosis of hypertension Elevated blood pressure reading without diagnosis of hypertension Type 2 diabetes mellitus with hyperglycemia, with long-term current use of insulin ([facility])- Primary Mild episode of recurrent major depressive disorder (HCC) ([facility]) JOHN (generalized anxiety disorder) ([facility]) Generalized anxiety disorder Carpal tunnel syndrome of left wrist Obesity hypoventilation syndrome ([facility]) Obesity hypoventilation syndrome Generalized edema Edema Irritable bowel syndrome with diarrhea Irritable bowel syndrome Gastroesophageal reflux disease without esophagitis Esophageal reflux Anxiety state ([facility]) Anxiety state, unspecified Type 2 diabetes mellitus with hyperglycemia, with long-term current use of insulin ([facility])- Primary Right carpal tunnel syndrome Carpal tunnel syndrome Chronic hypoxic respiratory failure ([facility]) Mild episode of recurrent major depressive disorder (HCC) ([facility]) JOHN (generalized anxiety disorder) ([facility]) Generalized anxiety disorder Generalized edema 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 Spondylosis of unspecified site without mention of myelopathy 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 elsewhere ([facility]) Acute pain of right knee- Primary Type 2 diabetes mellitus with microalbuminuria, with long-term current use of insulin ([facility]) Right carpal tunnel syndrome Carpal tunnel syndrome Status post carpal tunnel release- Primary Other postprocedural status documented in this encounter [facility] HealthcareEvaluation note* Diagnosis Mild episode of recurrent major depressive disorder (HCC) ([facility])- Primary Type 2 diabetes mellitus with microalbuminuria, with long-term current use of insulin ([facility]) JOHN (generalized anxiety disorder) ([facility]) Generalized anxiety disorder Migraine without aura and without status migrainosus, not intractable ([facility]) Irritable bowel syndrome with diarrhea Irritable bowel syndrome Gastroesophageal reflux disease without esophagitis Esophageal reflux Hot flashes due to menopause Morbid obesity ([facility]) 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.4) Obesity hypoventilation syndrome ([facility])- Primary Obesity hypoventilation syndrome Hypoxia Hypoxemia Type 2 diabetes mellitus with microalbuminuria, with long-term current use of insulin ([facility]) Right carpal tunnel syndrome Carpal tunnel syndrome Elevated blood-pressure reading without diagnosis of hypertension Elevated blood pressure reading without diagnosis of hypertension Type 2 diabetes mellitus with hyperglycemia, with long-term current use of insulin ([facility])- Primary Mild episode of recurrent major depressive disorder (HCC) ([facility]) JOHN (generalized anxiety disorder) ([facility]) Generalized anxiety disorder Carpal tunnel syndrome of left wrist Obesity hypoventilation syndrome ([facility]) Obesity hypoventilation syndrome Generalized edema Edema Irritable bowel syndrome with diarrhea Irritable bowel syndrome Gastroesophageal reflux disease without esophagitis Esophageal reflux Anxiety state ([facility]) Anxiety state, unspecified Type 2 diabetes mellitus with hyperglycemia, with long-term current use of insulin ([facility])- Primary Right carpal tunnel syndrome Carpal tunnel syndrome Chronic hypoxic respiratory failure ([facility]) Mild episode of recurrent major depressive disorder (HCC) ([facility]) JOHN (generalized anxiety disorder) ([facility] Generalized anxiety disorder Generalized edema 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 Spondylosis of unspecified site without mention of myelopathy 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 elsewhere ([facility]) Acute pain of right knee- Primary Type 2 diabetes mellitus with microalbuminuria, with long-term current use of insulin ([facility]) Right carpal tunnel syndrome Carpal tunnel syndrome Type 2 diabetes mellitus with hyperglycemia, with long-term current use of insulin ([facility]) documented in this encounter [facility] HealthcareEvaluation note* Diagnosis Mild episode of recurrent major depressive disorder (HCC) ([facility])- Primary Type 2 diabetes mellitus with microalbuminuria, with long-term current use of insulin ([facility]) JOHN (generalized anxiety disorder) ([facility]) Generalized anxiety disorder Migraine without aura and without status migrainosus, not intractable ([facility]) Irritable bowel syndrome with diarrhea Irritable bowel syndrome Gastroesophageal reflux disease without esophagitis Esophageal reflux Hot flashes due to menopause Morbid obesity ([facility]) 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.4) Obesity hypoventilation syndrome ([facility])- Primary Obesity hypoventilation syndrome Hypoxia Hypoxemia Type 2 diabetes mellitus with microalbuminuria, with long-term current use of insulin ([facility]) Right carpal tunnel syndrome Carpal tunnel syndrome Elevated blood-pressure reading without diagnosis of hypertension Elevated blood pressure reading without diagnosis of hypertension Type 2 diabetes mellitus with hyperglycemia, with long-term current use of insulin ([facility])- Primary Mild episode of recurrent major depressive disorder (HCC) ([facility]) JOHN (generalized anxiety disorder) ([facility]) Generalized anxiety disorder Carpal tunnel syndrome of left wrist Obesity hypoventilation syndrome ([facility]) Obesity hypoventilation syndrome Generalized edema Edema Irritable bowel syndrome with diarrhea Irritable bowel syndrome Gastroesophageal reflux disease without esophagitis Esophageal reflux Anxiety state ([facility]) Anxiety state, unspecified Type 2 diabetes mellitus with hyperglycemia, with long-term current use of insulin ([facility])- Primary Right carpal tunnel syndrome Carpal tunnel syndrome Chronic hypoxic respiratory failure ([facility]) Mild episode of recurrent major depressive disorder (HCC) ([facility]) JOHN (generalized anxiety disorder) ([facility]) Generalized anxiety disorder Generalized edema 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 Spondylosis of unspecified site without mention of myelopathy 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 elsewhere ([facility]) Acute pain of right knee- Primary Type 2 diabetes mellitus with microalbuminuria, with long-term current use of insulin ([facility]) Right carpal tunnel syndrome Carpal tunnel syndrome Chronic hypoxic respiratory failure ([facility])- Primary Chronic heart failure with preserved ejection fraction (HFpEF) ([facility]) Type 2 diabetes mellitus with hyperglycemia, with long-term current use of insulin ([facility]) Pulmonary hypertension ([facility]) Other chronic pulmonary heart diseases Colon cancer screening Special screening for malignant neoplasms, colon Gastroesophageal reflux disease without esophagitis Esophageal reflux documented in this encounter [facility] HealthcareEvaluation note* Diagnosis Mild episode of recurrent major depressive disorder (HCC) ([facility])- Primary Type 2 diabetes mellitus with microalbuminuria, with long-term current use of insulin ([facility]) JOHN (generalized anxiety disorder) ([facility]) Generalized anxiety disorder Migraine without aura and without status migrainosus, not intractable ([facility]) Irritable bowel syndrome with diarrhea Irritable bowel syndrome Gastroesophageal reflux disease without esophagitis Esophageal reflux Hot flashes due to menopause Morbid obesity ([facility]) Morbid obesity FPC (current) use of insulin (Z79.4) Obesity hypoventilation syndrome ([facility])- Primary Obesity hypoventilation syndrome Hypoxia Hypoxemia Type 2 diabetes mellitus with microalbuminuria, with long-term current use of insulin ([facility]) Right carpal tunnel syndrome Carpal tunnel syndrome Elevated blood-pressure reading without diagnosis of hypertension Elevated blood pressure reading without diagnosis of hypertension Type 2 diabetes mellitus with hyperglycemia, with long-term current use of insulin ([facility])- Primary Mild episode of recurrent major depressive disorder (HCC) ([facility]) JOHN (generalized anxiety disorder) ([facility]) Generalized anxiety disorder Carpal tunnel syndrome of left wrist Obesity hypoventilation syndrome ([facility]) Obesity hypoventilation syndrome Generalized edema Edema Irritable bowel syndrome with diarrhea Irritable bowel syndrome Gastroesophageal reflux disease without esophagitis Esophageal reflux Anxiety state ([facility]) Anxiety state, unspecified Type 2 diabetes mellitus with hyperglycemia, with long-term current use of insulin ([facility])- Primary Right carpal tunnel syndrome Carpal tunnel syndrome Chronic hypoxic respiratory failure ([facility]) Mild episode of recurrent major depressive disorder (HCC) ([facility]) JOHN (generalized anxiety disorder) ([facility] Generalized anxiety disorder Generalized edema 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 Spondylosis of unspecified site without mention of myelopathy 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 elsewhere ([facility]) Acute pain of right knee- Primary Type 2 diabetes mellitus with microalbuminuria, with long-term current use of insulin ([facility]) Right carpal tunnel syndrome Carpal tunnel syndrome Well woman exam with routine gynecological exam Routine gynecological examination Chronic hypoxic respiratory failure ([facility])- Primary Chronic heart failure with preserved ejection fraction (HFpEF) ([facility]) Type 2 diabetes mellitus with hyperglycemia, with long-term current use of insulin ([facility]) Pulmonary hypertension ([facility]) Other chronic pulmonary heart diseases Colon cancer screening Special screening for malignant neoplasms, colon Gastroesophageal reflux disease without esophagitis Esophageal reflux documented in this encounter [facility] HealthcareEvaluation note* Diagnosis Type 2 diabetes mellitus with hyperglycemia, with long-term current use of insulin ([facility])- Primary Carpal tunnel syndrome of left wrist Anxiety state ([facility]) Anxiety state, unspecified documented in this encounter [facility] HealthcareEvaluation note* Diagnosis Mild episode of recurrent major depressive disorder (HCC) ([facility])- Primary Type 2 diabetes mellitus with microalbuminuria, with long-term current use of insulin ([facility]) JOHN (generalized anxiety disorder) ([facility]) Generalized anxiety disorder Migraine without aura and without status migrainosus, not intractable ([facility]) Irritable bowel syndrome with diarrhea Irritable bowel syndrome Gastroesophageal reflux disease without esophagitis Esophageal reflux Hot flashes due to menopause Morbid obesity ([facility]) 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.4) Obesity hypoventilation syndrome ([facility])- Primary Obesity hypoventilation syndrome Hypoxia Hypoxemia Type 2 diabetes mellitus with microalbuminuria, with long-term current use of insulin ([facility]) Right carpal tunnel syndrome Carpal tunnel syndrome Elevated blood-pressure reading without diagnosis of hypertension Elevated blood pressure reading without diagnosis of hypertension Type 2 diabetes mellitus with hyperglycemia, with long-term current use of insulin ([facility])- Primary Mild episode of recurrent major depressive disorder (HCC) ([facility]) JOHN (generalized anxiety disorder) ([facility]) Generalized anxiety disorder Carpal tunnel syndrome of left wrist Obesity hypoventilation syndrome ([facility]) Obesity hypoventilation syndrome Generalized edema Edema Irritable bowel syndrome with diarrhea Irritable bowel syndrome Gastroesophageal reflux disease without esophagitis Esophageal reflux Anxiety state ([facility]) Anxiety state, unspecified Type 2 diabetes mellitus with hyperglycemia, with long-term current use of insulin ([facility])- Primary Right carpal tunnel syndrome Carpal tunnel syndrome Chronic hypoxic respiratory failure ([facility]) Mild episode of recurrent major depressive disorder (HCC) ([facility]) JOHN (generalized anxiety disorder) ([facility]) Generalized anxiety disorder Generalized edema 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 Spondylosis of unspecified site without mention of myelopathy 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 elsewhere ([facility]) Acute pain of right knee- Primary Type 2 diabetes mellitus with microalbuminuria, with long-term current use of insulin ([facility]) Right carpal tunnel syndrome Carpal tunnel syndrome Chronic hypoxic respiratory failure ([facility])- Primary Chronic heart failure with preserved ejection fraction (HFpEF) ([facility]) Type 2 diabetes mellitus with hyperglycemia, with long-term current use of insulin ([facility]) Pulmonary hypertension ([facility]) Other chronic pulmonary heart diseases Colon [...] hyperglycemia, with long-term current use of insulin ([facility])- Primary Right carpal tunnel syndrome Carpal tunnel syndrome Chronic hypoxic respiratory failure ([facility]) Mild episode of recurrent major depressive disorder (HCC) ([facility]) JOHN (generalized anxiety disorder) ([facility]) Generalized anxiety disorder Generalized edema 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 Spondylosis of unspecified site without mention of myelopathy 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 elsewhere ([facility]) [facility] Diagnosis Acute pain of right knee- Primary Type 2 diabetes mellitus with microalbuminuria, with long-term current use of insulin ([facility]) Right carpal tunnel syndrome Carpal tunnel syndrome [facility] Diagnosis Right wrist pain Pain in joint, forearm Carpal tunnel syndrome, right Carpal tunnel syndrome documented [facility] Diagnosis Mild episode of recurrent major depressive disorder (HCC) ([facility])- Primary Type 2 diabetes mellitus with microalbuminuria, with long-term current use of insulin (CMS/HCC) JOHN (generalized anxiety disorder) (CMS/HCC) Generalized anxiety disorder Migraine without aura and without status migrainosus, not intractable (CMS/HCC) Irritable bowel syndrome with diarrhea Irritable bowel syndrome Gastroesophageal reflux disease without esophagitis Esophageal reflux Hot flashes due to menopause Morbid obesity (CMS/HCC) Morbid obesity FPC (current) use of insulin [...] microalbuminuria, with long-term current use of insulin ([facility]) JOHN (generalized anxiety disorder) ([facility]) Generalized anxiety disorder Migraine without aura and without status migrainosus, not intractable ([facility]) Irritable bowel syndrome with diarrhea Irritable bowel syndrome Gastroesophageal reflux disease without esophagitis Esophageal reflux Hot flashes due to menopause Morbid obesity ([facility]) Morbid obesity FPC (current) use of insulin (Z79.4) Obesity hypoventilation syndrome ([facility])- Primary Obesity hypoventilation syndrome Hypoxia Hypoxemia Type 2 diabetes mellitus with microalbuminuria, with long-term current use of insulin ([facility]) Right carpal tunnel syndrome Carpal tunnel syndrome Elevated blood-pressure reading without diagnosis of hypertension Elevated blood pressure reading without diagnosis of hypertension Type 2 diabetes mellitus with hyperglycemia, with long-term current use of insulin ([facility])- Primary Mild episode of recurrent major depressive disorder (HCC) ([facility]) JOHN (generalized anxiety disorder) ([facility]) Generalized anxiety disorder Carpal tunnel syndrome of left wrist Obesity hypoventilation syndrome ([facility]) Obesity hypoventilation syndrome Generalized edema Edema Irritable bowel syndrome with diarrhea Irritable bowel syndrome Gastroesophageal reflux disease without esophagitis Esophageal reflux Anxiety state ([facility]) Anxiety state, unspecified Type 2 diabetes mellitus with hyperglycemia, with long-term current use of insulin ([facility])- Primary Right carpal tunnel syndrome Carpal tunnel syndrome Chronic hypoxic respiratory failure ([facility]) Mild episode of recurrent major depressive disorder (HCC) ([facility]) JOHN (generalized anxiety disorder) ([facility]) Generalized anxiety disorder Generalized edema 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 Spondylosis of unspecified site without mention of myelopathy 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 elsewhere ([facility]) Acute pain of right knee- Primary Type 2 diabetes mellitus with microalbuminuria, with long-term current use of insulin ([facility]) Right carpal tunnel syndrome Carpal tunnel syndrome Chronic hypoxic respiratory failure ([facility])- Primary Chronic heart failure with preserved ejection fraction (HFpEF) ([facility]) Type 2 diabetes mellitus with hyperglycemia, with long-term current use of insulin ([facility]) Pulmonary hypertension ([facility]) Other chronic pulmonary heart diseases Colon cancer screening Special screening for malignant neoplasms, colon Gastroesophageal reflux disease without esophagitis Esophageal reflux Type 2 diabetes mellitus with microalbuminuria, with long-term current use of insulin ([facility]) documented in this encounter [facility]* Diagnosis Mild episode of recurrent major depressive disorder (HCC) ([facility])- Primary Type 2 diabetes mellitus with microalbuminuria, with long-term current use of insulin ([facility]) JOHN (generalized anxiety disorder) ([facility]) Generalized anxiety disorder Migraine without aura and without status migrainosus, not intractable ([facility]) Irritable bowel syndrome with diarrhea Irritable bowel syndrome Gastroesophageal reflux disease without esophagitis Esophageal reflux Hot flashes due to menopause Morbid obesity ([facility]) Morbid obesity FPC (current) use of insulin (Z79.4) Obesity hypoventilation syndrome ([facility])- Primary Obesity hypoventilation syndrome Hypoxia Hypoxemia Type 2 diabetes mellitus with microalbuminuria, with long-term current use of insulin ([facility]) Right carpal tunnel syndrome Carpal tunnel syndrome Elevated blood-pressure reading without diagnosis of hypertension Elevated blood pressure reading without diagnosis of hypertension Type 2 diabetes mellitus with hyperglycemia, with long-term current use of insulin ([facility])- Primary Mild episode of recurrent major depressive disorder (HCC) ([facility]) JOHN (generalized anxiety disorder) ([facility]) Generalized anxiety disorder Carpal tunnel syndrome of left wrist Obesity hypoventilation syndrome ([facility]) Obesity hypoventilation syndrome Generalized edema Edema Irritable bowel syndrome with diarrhea Irritable bowel syndrome Gastroesophageal reflux disease without esophagitis Esophageal reflux Anxiety state ([facility]) Anxiety state, unspecified Type 2 diabetes mellitus with hyperglycemia, with long-term current use of insulin ([facility])- Primary Right carpal tunnel syndrome Carpal tunnel syndrome Chronic hypoxic respiratory failure ([facility]) Mild episode of recurrent major depressive disorder (HCC) ([facility]) JOHN (generalized anxiety disorder) ([facility]) Generalized anxiety disorder Generalized edema 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 Spondylosis of unspecified site without mention of myelopathy 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 elsewhere ([facility]) Acute pain of right knee- Primary Type 2 diabetes mellitus with microalbuminuria, with long-term current use of insulin ([facility]) Right carpal tunnel syndrome Carpal tunnel syndrome Chronic hypoxic respiratory failure ([facility])- Primary Chronic heart failure with preserved ejection fraction (HFpEF) ([facility]) Type 2 diabetes mellitus with hyperglycemia, with long-term current use of insulin ([facility]) Pulmonary hypertension ([facility]/HCC) Other chronic pulmonary heart diseases Colon cancer screening Special screening for malignant neoplasms, colon Gastroesophageal reflux disease without esophagitis Esophageal reflux Type 2 diabetes mellitus with hyperglycemia, with long-term current use of insulin ([facility]) documented in this encounter [facility]* Diagnosis Dyspnea on exertion- Primary Other dyspnea and respiratory abnormality Chronic heart failure with preserved ejection fraction ([facility]) Type 2 diabetes mellitus with hyperglycemia, with long-term current use of insulin ([facility]) documented in this encounter [facility]* Diagnosis Mild episode of recurrent major depressive disorder (HCC) ([facility])- Primary Type 2 diabetes mellitus with microalbuminuria, with long-term current use of insulin ([facility]) JOHN (generalized anxiety disorder) ([facility]) Generalized anxiety disorder Migraine without aura and without status migrainosus, not intractable ([facility]) Irritable bowel syndrome with diarrhea Irritable bowel syndrome Gastroesophageal reflux disease without esophagitis Esophageal reflux Hot flashes due to menopause Morbid obesity ([facility]) Morbid obesity FPC (current) use of insulin (Z79.4) Obesity hypoventilation syndrome ([facility])- Primary Obesity hypoventilation syndrome Hypoxia Hypoxemia Type 2 diabetes mellitus with microalbuminuria, with long-term current use of insulin ([facility]) Right carpal tunnel syndrome Carpal tunnel syndrome Elevated blood-pressure reading without diagnosis of hypertension Elevated blood pressure reading without diagnosis of hypertension Type 2 diabetes mellitus with hyperglycemia, with long-term current use of insulin ([facility])- Primary Mild episode of recurrent major depressive disorder (HCC) ([facility]) JOHN (generalized anxiety disorder) ([facility]) Generalized anxiety disorder Carpal tunnel syndrome of left wrist Obesity hypoventilation syndrome ([facility]) Obesity hypoventilation syndrome Generalized edema Edema Irritable bowel syndrome with diarrhea Irritable bowel syndrome Gastroesophageal reflux disease without esophagitis Esophageal reflux Anxiety state ([facility]) Anxiety state, unspecified Type 2 diabetes mellitus with hyperglycemia, with long-term current use of insulin ([facility])- Primary Right carpal tunnel syndrome Carpal tunnel syndrome Chronic hypoxic respiratory failure ([facility]) Mild episode of recurrent major depressive disorder (HCC) ([facility]) JOHN (generalized anxiety disorder) ([facility]) Generalized anxiety disorder Generalized edema 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 Spondylosis of unspecified site without mention of myelopathy 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 elsewhere ([facility]) Acute pain of right knee- Primary Type 2 diabetes mellitus with microalbuminuria, with long-term current use of insulin ([facility]/HCC) Right carpal tunnel syndrome Carpal tunnel syndrome Chronic hypoxic respiratory failure ([facility]/HCC)- Primary Chronic heart failure with preserved ejection fraction (HFpEF) ([facility]) Type 2 diabetes mellitus with hyperglycemia, with long-term current use of insulin ([facility]/HCC) Pulmonary hypertension ([facility]) Other chronic pulmonary heart diseases Colon cancer screening Special screening for malignant neoplasms, colon Gastroesophageal reflux disease without esophagitis Esophageal reflux Diabetic polyneuropathy associated with type 2 diabetes mellitus ([facility]/HCC)- Primary Neuritis Unspecified neuralgia, neuritis, and radiculitis [facility] Cavitary lesion of lung documented in this encounter [facility]* Diagnosis Mediastinal lymphadenopathy- Primary Enlargement of lymph nodes documented in this encounter [facility]* Diagnosis Mediastinal lymphadenopathy- Primary Enlargement of lymph nodes Pulmonary nodule Other diseases of lung, not elsewhere classified Morbid obesity ([facility]) Morbid obesity documented in this encounter [facility]* Diagnosis Type 2 diabetes mellitus with hyperglycemia, with long-term current use of insulin ([facility])- Primary Hyperglycemia Other abnormal glucose Acute cystitis without hematuria Hypoxia Hypoxemia Hyperglycemia Other abnormal glucose Obstructive sleep apnea syndrome Obstructive sleep apnea (adult) (pediatric) Severe obesity (BMI >= 40) ([facility]) Hyperlipidemia associated with type 2 diabetes mellitus ([facility]) Acute cystitis without hematuria documented in this encounter [facility]* Diagnosis Chronic hypoxic respiratory failure ([facility])- Primary Obstructive sleep apnea syndrome Obstructive sleep apnea (adult) (pediatric) Pulmonary nodule Other diseases of lung, not elsewhere classified Moderate persistent asthma without complication documented in this encounter [facility]* Diagnosis Moderate persistent asthma without complication documented in this encounter [facility]* Diagnosis Mediastinal lymphadenopathy- Primary Enlargement of lymph nodes Hypoxia Hypoxemia Pulmonary nodule Other diseases of lung, not elsewhere classified Severe obesity (BMI >= 40) ([facility]) Dyspnea on exertion Other dyspnea and respiratory abnormality documented in this encounter [facility]* Diagnosis Dyspnea on exertion- Primary Other dyspnea and respiratory abnormality Chronic hypoxic respiratory failure ([facility]) Moderate persistent asthma without complication documented in this encounter [facility]* Diagnosis Chronic hypoxic respiratory failure ([facility])- Primary SOB (shortness of breath) Shortness of breath Hypoxia Hypoxemia documented in this encounter [facility]* Diagnosis JOSE M (obstructive sleep apnea)- Primary Obstructive sleep apnea (adult) (pediatric) Chronic hypoxic respiratory failure ([facility]) Severe obesity (BMI >= 40) ([facility]) documented in this encounter [facility]* Diagnosis Chronic hypoxic respiratory failure ([facility])- Primary SOB (shortness of breath) Shortness of breath Hypoxia Hypoxemia documented in this encounter [facility]* Diagnosis Moderate persistent asthma without complication- Primary Obstructive sleep apnea syndrome Obstructive sleep apnea (adult) (pediatric) Pulmonary nodule Other diseases of lung, not elsewhere classified Chronic hypoxic respiratory failure ([facility]) documented in this encounter [facility]* Diagnosis Dyspnea on exertion- Primary Other dyspnea and respiratory abnormality Pulmonary hypertension ([facility]) Other chronic pulmonary heart diseases documented in this encounter [facility]* Diagnosis JOSE M (obstructive sleep apnea) Obstructive sleep apnea (adult) (pediatric) Chronic hypoxic respiratory failure ([facility]) Severe obesity (BMI >= 40) ([facility]) documented in this encounter [facility]* Diagnosis Mild episode of recurrent major depressive disorder (HCC) ([facility])- Primary Type 2 diabetes mellitus with microalbuminuria, with long-term current use of insulin ([facility]) JONH (generalized anxiety disorder) ([facility] [place] [facility]) Generalized anxiety disorder Migraine without aura and without status migrainosus, not intractable ([facility]) Irritable bowel syndrome with diarrhea Irritable bowel syndrome Gastroesophageal reflux disease without esophagitis Esophageal reflux Hot flashes due to menopause Morbid obesity ([facility]) 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.4) Obesity hypoventilation syndrome ([facility])- Primary Obesity hypoventilation syndrome Hypoxia Hypoxemia Type 2 diabetes mellitus with microalbuminuria, with long-term current use of insulin ([facility]) Right carpal tunnel syndrome Carpal tunnel syndrome Elevated blood-pressure reading without diagnosis of hypertension Elevated blood pressure reading without diagnosis of hypertension Type 2 diabetes mellitus with hyperglycemia, with long-term current use of insulin ([facility])- Primary Mild episode of recurrent major depressive disorder (HCC) ([facility]/HCC) JOHN (generalized anxiety disorder) ([facility]) Generalized anxiety disorder Carpal tunnel syndrome of left wrist Obesity hypoventilation syndrome ([facility]/HCC) Obesity hypoventilation syndrome Generalized edema Edema Irritable bowel syndrome with diarrhea Irritable bowel syndrome Gastroesophageal reflux disease without esophagitis Esophageal reflux Anxiety state ([facility]) Anxiety state, unspecified Type 2 diabetes mellitus with hyperglycemia, with long-term current use of insulin ([facility])- Primary Right carpal tunnel syndrome Carpal tunnel syndrome Chronic hypoxic respiratory failure ([facility]) Mild episode of recurrent major depressive disorder (HCC) ([facility]/HCC) JOHN (generalized anxiety disorder) ([facility]) Generalized anxiety disorder Generalized edema 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 Spondylosis of unspecified site without mention of myelopathy 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 elsewhere ([facility]) Acute pain of right knee- Primary Type 2 diabetes mellitus with microalbuminuria, with long-term current use of insulin ([facility]) Right carpal tunnel syndrome Carpal tunnel syndrome Chronic hypoxic respiratory failure ([facility])- Primary Chronic heart failure with preserved ejection fraction (HFpEF) ([facility] [facility] Type 2 diabetes mellitus with hyperglycemia, with long-term current use of insulin ([facility]) Pulmonary hypertension ([facility]) Other chronic pulmonary heart diseases Colon cancer screening Special screening for malignant neoplasms, colon Gastroesophageal reflux disease without esophagitis Esophageal reflux Dehydration- Primary Nausea and vomiting, unspecified vomiting type Type 2 diabetes mellitus with hyperglycemia, with long-term current use of insulin ([facility]) Class 3 severe obesity due to excess calories with serious comorbidity and body mass index (BMI) of40.0 to 44.9 in adult ([facility]) Chronic hypoxic respiratory failure ([facility]) Chronic heart failure with preserved ejection fraction (HFpEF) ([facility]) documented in this encounter [facility] HealthcareEvaluation note* Diagnosis Mild episode of recurrent major depressive disorder (HCC) ([facility])- Primary Type 2 diabetes mellitus with microalbuminuria, with long-term current use of insulin ([facility]) JOHN (generalized anxiety disorder) ([facility]) Generalized anxiety disorder Migraine without aura and without status migrainosus, not intractable ([facility]) Irritable bowel syndrome with diarrhea Irritable bowel syndrome Gastroesophageal reflux disease without esophagitis Esophageal reflux Hot flashes due to menopause Morbid obesity (CMS/HCC) Morbid obesity FPC (current) use of insulin (Z79.4) Obesity hypoventilation syndrome ([facility]/HCC)- Primary Obesity hypoventilation syndrome Hypoxia Hypoxemia Type 2 diabetes mellitus with microalbuminuria, with long-term current use of insulin ([facility]) Right carpal tunnel syndrome Carpal tunnel syndrome Elevated blood-pressure reading without diagnosis of hypertension Elevated blood pressure reading without diagnosis of hypertension Type 2 diabetes mellitus with hyperglycemia, with long-term current use of insulin ([facility])- Primary Mild episode of recurrent major depressive disorder (HCC) ([facility]) JOHN (generalized anxiety disorder) ([facility]) Generalized anxiety disorder Carpal tunnel syndrome of left wrist Obesity hypoventilation syndrome ([facility]) Obesity hypoventilation syndrome Generalized edema Edema Irritable bowel syndrome with diarrhea Irritable bowel syndrome Gastroesophageal reflux disease without esophagitis Esophageal reflux Anxiety state ([facility]) Anxiety state, unspecified Type 2 diabetes mellitus with hyperglycemia, with long-term current use of insulin ([facility])- Primary Right carpal tunnel syndrome Carpal tunnel syndrome Chronic hypoxic respiratory failure ([facility]) Mild episode of recurrent major depressive disorder (HCC) ([facility]) JOHN (generalized anxiety disorder) ([facility]) Generalized anxiety disorder Generalized edema 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 Spondylosis of unspecified site without mention of myelopathy 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 elsewhere ([facility]) Acute pain of right knee- Primary Type 2 diabetes mellitus with microalbuminuria, with long-term current use of insulin ([facility]) Right carpal tunnel syndrome Carpal tunnel syndrome Chronic hypoxic respiratory failure ([facility])- Primary Chronic heart failure with preserved ejection fraction (HFpEF) ([facility]) Type 2 diabetes mellitus with hyperglycemia, with long-term current use of insulin ([facility]) Pulmonary hypertension ([facility]) Other chronic pulmonary heart diseases Colon cancer screening Special screening for malignant neoplasms, colon Gastroesophageal reflux disease without esophagitis Esophageal reflux Dehydration- Primary Nausea and vomiting, unspecified vomiting type Type 2 diabetes mellitus with hyperglycemia, with long-term current use of insulin ([facility]) Class 3 severe obesity due to excess calories with serious comorbidity and body mass index (BMI) of40.0 to 44.9 in adult ([facility]) Chronic hypoxic respiratory failure ([facility]) Chronic heart failure with preserved ejection fraction (HFpEF) ([facility]) Type 2 diabetes mellitus with hyperglycemia, with long-term current use of insulin ([facility])- Primary Chronic heart failure with preserved ejection fraction (HFpEF) ([facility]) Mild episode of recurrent major depressive disorder (HCC) ([facility]) JOHN (generalized anxiety disorder) ([facility]) Generalized anxiety disorder Gastroesophageal reflux disease without esophagitis Esophageal reflux Class 3 severe obesity due to excess calories with serious comorbidity and body mass index (BMI) of40.0 to 44.9 in adult ([facility]) documented in this encounter [facility] HealthcareEvaluation note* Diagnosis Obstructive sleep apnea syndrome- Primary Obstructive sleep apnea (adult) (pediatric) Noncompliance with CPAP treatment Chronic hypoxic respiratory failure, on home oxygen therapy ([facility]) Obesity, Class III, BMI 40-49.9 (morbid obesity) ([facility]) documented in this encounter [facility] SystemEvaluation note* Diagnosis Chronic heart failure with preserved ejection fraction ([facility])- Primary Primary hypertension Unspecified essential hypertension Dyspnea on exertion Other dyspnea and respiratory abnormality Hyperlipidemia associated with type 2 diabetes mellitus ([facility]) documented in this encounter [facility] SystemEvaluation note* Diagnosis Mild episode of recurrent major depressive disorder (HCC) ([facility])- Primary Type 2 diabetes mellitus with microalbuminuria, with long-term current use of insulin ([facility]) JOHN (generalized anxiety disorder) ([facility]) Generalized anxiety disorder Migraine without aura and without status migrainosus, not intractable ([facility]) Irritable bowel syndrome with diarrhea Irritable bowel syndrome Gastroesophageal reflux disease without esophagitis Esophageal reflux Hot flashes due to menopause Morbid obesity ([facility]) Morbid obesity FPC (current) use of insulin (Z79.4) Obesity hypoventilation syndrome ([facility])- Primary Obesity hypoventilation syndrome Hypoxia Hypoxemia Type 2 diabetes mellitus with microalbuminuria, with long-term current use of insulin ([facility]) Right carpal tunnel syndrome Carpal tunnel syndrome Elevated blood-pressure reading without diagnosis of hypertension Elevated blood pressure reading without diagnosis of hypertension Type 2 diabetes mellitus with hyperglycemia, with long-term current use of insulin ([facility])- Primary Mild episode of recurrent major depressive disorder (HCC) ([facility]) JOHN (generalized anxiety disorder) ([facility]) Generalized anxiety disorder Carpal tunnel syndrome of left wrist Obesity hypoventilation syndrome ([facility]) Obesity hypoventilation syndrome Generalized edema Edema Irritable bowel syndrome with diarrhea Irritable bowel syndrome Gastroesophageal reflux disease without esophagitis Esophageal reflux Anxiety state ([facility]) Anxiety state, unspecified Type 2 diabetes mellitus with hyperglycemia, with long-term current use of insulin ([facility])- Primary Right carpal tunnel syndrome Carpal tunnel syndrome Chronic hypoxic respiratory failure ([facility]) Mild episode of recurrent major depressive disorder (HCC) ([facility]) JOHN (generalized anxiety disorder) ([facility]) Generalized anxiety disorder Generalized edema 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 Spondylosis of unspecified site without mention of myelopathy 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 elsewhere ([facility]) Acute pain of right knee- Primary Type 2 diabetes mellitus with microalbuminuria, with long-term current use of insulin ([facility]) Right carpal tunnel syndrome Carpal tunnel syndrome Chronic hypoxic respiratory failure ([facility])- Primary Chronic heart failure with preserved ejection fraction (HFpEF) ([facility]) Type 2 diabetes mellitus with hyperglycemia, with long-term current use of insulin ([facility]) Pulmonary hypertension ([facility]) Other chronic pulmonary heart diseases Colon cancer screening Special screening for malignant neoplasms, colon Gastroesophageal reflux disease without esophagitis Esophageal reflux Dehydration- Primary Nausea and vomiting, unspecified vomiting type Type 2 diabetes mellitus with hyperglycemia, with long-term current use of insulin ([facility]) Class 3 severe obesity due to excess calories with serious comorbidity and body mass index (BMI) of40.0 to 44.9 in adult Chronic hypoxic respiratory failure ([facility]) Chronic heart failure with preserved ejection fraction (HFpEF) ([facility]) Type 2 diabetes mellitus with hyperglycemia, with long-term current use of insulin ([facility])- Primary Chronic heart failure with preserved ejection fraction (HFpEF) ([facility]) Mild episode of recurrent major depressive disorder (HCC) ([facility]) JOHN (generalized anxiety disorder) ([facility]) Generalized anxiety disorder Gastroesophageal reflux disease without esophagitis Esophageal reflux Class 3 severe obesity due to excess calories with serious comorbidity and body mass index (BMI) of40.0 to 44.9 in adult Type 2 diabetes mellitus with hyperglycemia, with long-term current use of insulin ([facility])- Primary Benign essential hypertension ([facility]) Essential hypertension, benign Mild episode of recurrent major depressive disorder (HCC) ([facility]) JOHN (generalized anxiety disorder) ([facility]) Generalized anxiety disorder Chronic heart failure with preserved ejection fraction (HFpEF) ([facility]) Type 2 diabetes mellitus with microalbuminuria, with long-term current use of insulin ([facility]) Class 3 severe obesity due to excess calories with serious comorbidity and body mass index (BMI) of40.0 to 44.9 in adult Encounter for long-term (current) use of medications Encounter for long-term (current) use of other medications Dyslipidemia ([facility]/HCC) Other and unspecified hyperlipidemia Primary osteoarthritis of both knees documented in this encounter [facility] HealthcareEvaluation note* Diagnosis Mild episode of recurrent major depressive disorder- Primary Type 2 diabetes mellitus with microalbuminuria, with long-term current use of insulin ([facility]) JOHN (generalized anxiety disorder) Generalized anxiety disorder Migraine without aura and without status migrainosus, not intractable Irritable bowel syndrome with diarrhea Irritable bowel syndrome Gastroesophageal reflux disease without esophagitis Esophageal reflux Hot flashes due to menopause Morbid obesity ([facility]) 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.4) Obesity hypoventilation syndrome ([facility])- Primary Obesity hypoventilation syndrome Hypoxia Hypoxemia Type 2 diabetes mellitus with microalbuminuria, with long-term current use of insulin ([facility]) Right carpal tunnel syndrome Carpal tunnel syndrome Elevated blood-pressure reading without diagnosis of hypertension Elevated blood pressure reading without diagnosis of hypertension Type 2 diabetes mellitus with hyperglycemia, with long-term current use of insulin ([facility])- Primary Mild episode of recurrent major depressive disorder JOHN (generalized anxiety disorder) Generalized anxiety disorder Carpal tunnel syndrome of left wrist Obesity hypoventilation syndrome ([facility]) Obesity hypoventilation syndrome Generalized edema Edema Irritable bowel syndrome with diarrhea Irritable bowel syndrome Gastroesophageal reflux disease without esophagitis Esophageal reflux Anxiety state Anxiety state, unspecified Type 2 diabetes mellitus with hyperglycemia, with long-term current use of insulin ([facility])- Primary Right carpal tunnel syndrome Carpal tunnel syndrome Chronic hypoxic respiratory failure (HCC) Mild episode of recurrent major depressive disorder JOHN (generalized anxiety disorder) Generalized anxiety disorder Generalized edema 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 Spondylosis of unspecified site without mention of myelopathy 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 elsewhere ([facility]) Acute pain of right knee- Primary Type 2 diabetes mellitus with microalbuminuria, with long-term current use of insulin ([facility]) Right carpal tunnel syndrome Carpal tunnel syndrome Chronic hypoxic respiratory failure (HCC)- Primary Chronic heart failure with preserved ejection fraction (HFpEF) ([facility]) Type 2 diabetes mellitus with hyperglycemia, with long-term current use of insulin ([facility]) Pulmonary hypertension ([facility]) Other chronic pulmonary heart diseases Colon cancer screening Special screening for malignant neoplasms, colon Gastroesophageal reflux disease without esophagitis Esophageal reflux Dehydration- Primary Nausea and vomiting, unspecified vomiting type Type 2 diabetes mellitus with hyperglycemia, with long-term current use of insulin ([facility]) Class 3 severe obesity due to excess calories with serious comorbidity and body mass index (BMI) of40.0 to 44.9 in adult ([facility]) Chronic hypoxic respiratory failure ([facility]) Chronic heart failure with preserved ejection fraction (HFpEF) ([facility]) Type 2 diabetes mellitus with hyperglycemia, with long-term current use of insulin ([facility])- Primary Chronic heart failure with preserved ejection fraction (HFpEF) ([facility]) Mild episode of recurrent major depressive disorder JOHN (generalized anxiety disorder) Generalized anxiety disorder Gastroesophageal reflux disease without esophagitis Esophageal reflux Class 3 severe obesity due to excess calories with serious comorbidity and body mass index (BMI) of40.0 to 44.9 in adult ([facility]) Type 2 diabetes mellitus with hyperglycemia, with long-term current use of insulin ([facility])- Primary Benign essential hypertension Essential hypertension, benign Mild episode of recurrent major depressive disorder JOHN (generalized anxiety disorder) Generalized anxiety disorder Chronic heart failure with preserved ejection fraction (HFpEF) ([facility]) Type 2 diabetes mellitus with microalbuminuria, with long-term current use of insulin ([facility]) Class 3 severe obesity due to excess calories with serious comorbidity and body mass index (BMI) of40.0 to 44.9 in adult ([facility]) Encounter for long-term (current) use of medications Encounter for long-term (current) use of other medications Dyslipidemia Other and unspecified hyperlipidemia Primary osteoarthritis of both knees Internal derangement of left knee- Primary Acute pain of left knee documented in this encounter [facility] HealthcareEvaluation note* Diagnosis Type 2 diabetes mellitus with hyperglycemia, with long-term current use of insulin ([facility])- Primary documented in this encounter [facility] SystemEvaluation note* Diagnosis Moderate persistent asthma without complication- Primary Chronic hypoxic respiratory failure ([facility]) documented in this encounter [facility] SystemEvaluation note* Diagnosis Mild episode of recurrent major depressive disorder- Primary Type 2 diabetes mellitus with microalbuminuria, with long-term current use of insulin ([facility]) JOHN (generalized anxiety disorder) Generalized anxiety disorder Migraine without aura and without status migrainosus, not intractable Irritable bowel syndrome with diarrhea Irritable bowel syndrome Gastroesophageal reflux disease without esophagitis Esophageal reflux Hot flashes due to menopause Morbid obesity ([facility]) 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.4) Obesity hypoventilation syndrome ([facility])- Primary Obesity hypoventilation syndrome Hypoxia Hypoxemia Type 2 diabetes mellitus with microalbuminuria, with long-term current use of insulin (HCC) Right carpal tunnel syndrome Carpal tunnel syndrome Elevated blood-pressure reading without diagnosis of hypertension Elevated blood pressure reading without diagnosis of hypertension Type 2 diabetes mellitus with hyperglycemia, with long-term current use of insulin ([facility])- Primary Mild episode of recurrent major depressive disorder JOHN (generalized anxiety disorder) Generalized anxiety disorder Carpal tunnel syndrome of left wrist Obesity hypoventilation syndrome ([facility]) Obesity hypoventilation syndrome Generalized edema Edema Irritable bowel syndrome with diarrhea Irritable bowel syndrome Gastroesophageal reflux disease without esophagitis Esophageal reflux Anxiety state Anxiety state, unspecified Type 2 diabetes mellitus with hyperglycemia, with long-term current use of insulin ([facility])- Primary Right carpal tunnel syndrome Carpal tunnel syndrome Chronic hypoxic respiratory failure ([facility]) Mild episode of recurrent major depressive disorder JOHN (generalized anxiety disorder) Generalized anxiety disorder Generalized edema 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 Spondylosis of unspecified site without mention of myelopathy 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 elsewhere ([facility]) Acute pain of right knee- Primary Type 2 diabetes mellitus with microalbuminuria, with long-term current use of insulin ([facility]) Right carpal tunnel syndrome Carpal tunnel syndrome Chronic hypoxic respiratory failure ([facility])- Primary Chronic heart failure with preserved ejection fraction (HFpEF) ([facility]) Type 2 diabetes mellitus with hyperglycemia, with long-term current use of insulin ([facility]) Pulmonary hypertension ([facility]) Other chronic pulmonary heart diseases Colon cancer screening Special screening for malignant neoplasms, colon Gastroesophageal reflux disease without esophagitis Esophageal reflux Dehydration- Primary Nausea and vomiting, unspecified vomiting type Type 2 diabetes mellitus with hyperglycemia, with long-term current use of insulin ([facility]) Class 3 severe obesity due to excess calories with serious comorbidity and body mass index (BMI) of40.0 to 44.9 in adult ([facility]) Chronic hypoxic respiratory failure (HCC) Chronic heart failure with preserved ejection fraction (HFpEF) ([facility]) Type 2 diabetes mellitus with hyperglycemia, with long-term current use of insulin ([facility])- Primary Chronic heart failure with preserved ejection fraction (HFpEF) ([facility]) Mild episode of recurrent major depressive disorder JOHN (generalized anxiety disorder) Generalized anxiety disorder Gastroesophageal reflux disease without esophagitis Esophageal reflux Class 3 severe obesity due to excess calories with serious comorbidity and body mass index (BMI) of40.0 to 44.9 in adult ([facility]) Type 2 diabetes mellitus with hyperglycemia, with long-term current use of insulin ([facility])- Primary Benign essential hypertension Essential hypertension, benign Mild episode of recurrent major depressive disorder JOHN (generalized anxiety disorder) Generalized anxiety disorder Chronic heart failure with preserved ejection fraction (HFpEF) ([facility]) Type 2 diabetes mellitus with microalbuminuria, with long-term current use of insulin ([facility]) Class 3 severe obesity due to excess calories with serious comorbidity and body mass index (BMI) of40.0 to 44.9 in adult ([facility]) Encounter for long-term (current) use of medications Encounter for long-term (current) use of other medications Dyslipidemia Other and unspecified hyperlipidemia Primary osteoarthritis of both knees Genital warts Condyloma acuminatum documented in this encounter [facility]* Diagnosis Mild episode of recurrent major depressive disorder- Primary Type 2 diabetes mellitus with microalbuminuria, with long-term current use of insulin ([facility]) JOHN (generalized anxiety disorder) Generalized anxiety disorder Migraine without aura and without status migrainosus, not intractable Irritable bowel syndrome with diarrhea Irritable bowel syndrome Gastroesophageal reflux disease without esophagitis Esophageal reflux Hot flashes due to menopause Morbid obesity ([facility]) Morbid obesity FPC (current) use of insulin (Z79.4) Obesity hypoventilation syndrome ([facility])- Primary Obesity hypoventilation syndrome Hypoxia Hypoxemia Type 2 diabetes mellitus with microalbuminuria, with long-term current use of insulin ([facility]) Right carpal tunnel syndrome Carpal tunnel syndrome Elevated blood-pressure reading without diagnosis of hypertension Elevated blood pressure reading without diagnosis of hypertension Type 2 diabetes mellitus with hyperglycemia, with long-term current use of insulin ([facility])- Primary Mild episode of recurrent major depressive disorder JOHN (generalized anxiety disorder) Generalized anxiety disorder Carpal tunnel syndrome of left wrist Obesity hypoventilation syndrome ([facility]) Obesity hypoventilation syndrome Generalized edema Edema Irritable bowel syndrome with diarrhea Irritable bowel syndrome Gastroesophageal reflux disease without esophagitis Esophageal reflux Anxiety state Anxiety state, unspecified Type 2 diabetes mellitus with hyperglycemia, with long-term current use of insulin ([facility])- Primary Right carpal tunnel syndrome Carpal tunnel syndrome Chronic hypoxic respiratory failure ([facility]) Mild episode of recurrent major depressive disorder JOHN (generalized anxiety disorder) Generalized anxiety disorder Generalized edema 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 Spondylosis of unspecified site without mention of myelopathy 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 elsewhere ([facility]) Acute pain of right knee- Primary Type 2 diabetes mellitus with microalbuminuria, with long-term current use of insulin ([facility]) Right carpal tunnel syndrome Carpal tunnel syndrome Chronic hypoxic respiratory failure ([facility])- Primary Chronic heart failure with preserved ejection fraction (HFpEF) ([facility]) Type 2 diabetes mellitus with hyperglycemia, with long-term current use of insulin ([facility]) Pulmonary hypertension ([facility]) Other chronic pulmonary heart diseases Colon cancer screening Special screening for malignant neoplasms, colon Gastroesophageal reflux disease without esophagitis Esophageal reflux Dehydration- Primary Nausea and vomiting, unspecified vomiting type Type 2 diabetes mellitus with hyperglycemia, with long-term current use of insulin ([facility]) Class 3 severe obesity due to excess calories with serious comorbidity and body mass index (BMI) of40.0 to 44.9 in adult ([facility]) Chronic hypoxic respiratory failure ([facility]) Chronic heart failure with preserved ejection fraction (HFpEF) ([facility]) Type 2 diabetes mellitus with hyperglycemia, with long-term current use of insulin ([facility])- Primary Chronic heart failure with preserved ejection fraction (HFpEF) ([facility]) Mild episode of recurrent major depressive disorder JOHN (generalized anxiety disorder) Generalized anxiety disorder Gastroesophageal reflux disease without esophagitis Esophageal reflux Class 3 severe obesity due to excess calories with serious comorbidity and body mass index (BMI) of40.0 to 44.9 in adult ([facility]) Type 2 diabetes mellitus with hyperglycemia, with long-term current use of insulin ([facility])- Primary Benign essential hypertension Essential hypertension, benign Mild episode of recurrent major depressive disorder JOHN (generalized anxiety disorder) Generalized anxiety disorder Chronic heart failure with preserved ejection fraction (HFpEF) ([facility]) Type 2 diabetes mellitus with microalbuminuria, with long-term current use of insulin ([facility]) Class 3 severe obesity due to excess calories with serious comorbidity and body mass index (BMI) of40.0 to 44.9 in adult ([facility]) Encounter for long-term (current) use of medications Encounter for long-term (current) use of other medications Dyslipidemia Other and unspecified hyperlipidemia Primary osteoarthritis of both knees Acute pain of left knee- Primary documented in this encounter [facility]* Diagnosis Mild episode of recurrent major depressive disorder- Primary Type 2 diabetes mellitus with microalbuminuria, with long-term current use of insulin ([facility]) JOHN (generalized anxiety disorder) Generalized anxiety disorder Migraine without aura and without status migrainosus, not intractable Irritable bowel syndrome with diarrhea Irritable bowel syndrome Gastroesophageal reflux disease without esophagitis Esophageal reflux Hot flashes due to menopause Morbid obesity ([facility]) Morbid obesity FPC (current) use of insulin (Z79.4) Obesity hypoventilation syndrome ([facility])- Primary Obesity hypoventilation syndrome Hypoxia Hypoxemia Type 2 diabetes mellitus with microalbuminuria, with long-term current use of insulin ([facility]) Right carpal tunnel syndrome Carpal tunnel syndrome Elevated blood-pressure reading without diagnosis of hypertension Elevated blood pressure reading without diagnosis of hypertension Type 2 diabetes mellitus with hyperglycemia, with long-term current use of insulin ([facility])- Primary Mild episode of recurrent major depressive disorder JOHN (generalized anxiety disorder) Generalized anxiety disorder Carpal tunnel syndrome of left wrist Obesity hypoventilation syndrome ([facility]) Obesity hypoventilation syndrome Generalized edema Edema Irritable bowel syndrome with diarrhea Irritable bowel syndrome Gastroesophageal reflux disease without esophagitis Esophageal reflux Anxiety state Anxiety state, unspecified Type 2 diabetes mellitus with hyperglycemia, with long-term current use of insulin ([facility])- Primary Right carpal tunnel syndrome Carpal tunnel syndrome Chronic hypoxic respiratory failure ([facility]) Mild episode of recurrent major depressive disorder JOHN (generalized anxiety disorder) Generalized anxiety disorder Generalized edema 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 Spondylosis of unspecified site without mention of myelopathy 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 elsewhere ([facility]) Acute pain of right knee- Primary Type 2 diabetes mellitus with microalbuminuria, with long-term current use of insulin ([facility]) Right carpal tunnel syndrome Carpal tunnel syndrome Chronic hypoxic respiratory failure (HCC)- Primary Chronic heart failure with preserved ejection fraction (HFpEF) ([facility]) Type 2 diabetes mellitus with hyperglycemia, with long-term current use of insulin ([facility]) Pulmonary hypertension ([facility]) Other chronic pulmonary heart diseases Colon cancer screening Special screening for malignant neoplasms, colon Gastroesophageal reflux disease without esophagitis Esophageal reflux Dehydration- Primary Nausea and vomiting, unspecified vomiting type Type 2 diabetes mellitus with hyperglycemia, with long-term current use of insulin ([facility]) Class 3 severe obesity due to excess calories with serious comorbidity and body mass index (BMI) of40.0 to 44.9 in adult ([facility]) Chronic hypoxic respiratory failure (HCC) Chronic heart failure with preserved ejection fraction (HFpEF) ([facility]) Type 2 diabetes mellitus with hyperglycemia, with long-term current use of insulin ([facility])- Primary Chronic heart failure with preserved ejection fraction (HFpEF) ([facility]) Mild episode of recurrent major depressive disorder JOHN (generalized anxiety disorder) Generalized anxiety disorder Gastroesophageal reflux disease without esophagitis Esophageal reflux Class 3 severe obesity due to excess calories with serious comorbidity and body mass index (BMI) of40.0 to 44.9 in adult ([facility]) Type 2 diabetes mellitus with hyperglycemia, with long-term current use of insulin ([facility])- Primary Benign essential hypertension Essential hypertension, benign Mild episode of recurrent major depressive disorder JOHN (generalized anxiety disorder) Generalized anxiety disorder Chronic heart failure with preserved ejection fraction (HFpEF) ([facility]) Type 2 diabetes mellitus with microalbuminuria, with long-term current use of insulin ([facility]) Class 3 severe obesity due to excess calories with serious comorbidity and body mass index (BMI) of40.0 to 44.9 in adult ([facility]) Encounter for long-term (current) use of medications Encounter for long-term (current) use of other medications Dyslipidemia Other and unspecified hyperlipidemia Primary osteoarthritis of both knees Acute medial meniscus tear of left knee, initial encounter- Primary Acute pain of left knee documented in this encounter [facility]Evaluation note* Diagnosis Mild episode of recurrent major depressive disorder- Primary Type 2 diabetes mellitus with microalbuminuria, with long-term current use of insulin ([facility]) JOHN (generalized anxiety disorder) Generalized anxiety disorder Migraine without aura and without status migrainosus, not intractable Irritable bowel syndrome with diarrhea Irritable bowel syndrome Gastroesophageal reflux disease without esophagitis Esophageal reflux Hot flashes due to menopause Morbid obesity ([facility]) 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.4) Obesity hypoventilation syndrome ([facility])- Primary Obesity hypoventilation syndrome Hypoxia Hypoxemia Type 2 diabetes mellitus with microalbuminuria, with long-term current use of insulin ([facility]) Right carpal tunnel syndrome Carpal tunnel syndrome Elevated blood-pressure reading without diagnosis of hypertension Elevated blood pressure reading without diagnosis of hypertension Type 2 diabetes mellitus with hyperglycemia, with long-term current use of insulin ([facility])- Primary Mild episode of recurrent major depressive disorder JOHN (generalized anxiety disorder) Generalized anxiety disorder Carpal tunnel syndrome of left wrist Obesity hypoventilation syndrome ([facility]) Obesity hypoventilation syndrome Generalized edema Edema Irritable bowel syndrome with diarrhea Irritable bowel syndrome Gastroesophageal reflux disease without esophagitis Esophageal reflux Anxiety state Anxiety state, unspecified Type 2 diabetes mellitus with hyperglycemia, with long-term current use of insulin ([facility])- Primary Right carpal tunnel syndrome Carpal tunnel syndrome Chronic hypoxic respiratory failure ([facility]) Mild episode of recurrent major depressive disorder JOHN (generalized anxiety disorder) Generalized anxiety disorder Generalized edema 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 Spondylosis of unspecified site without mention of myelopathy 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 elsewhere ([facility]) Acute pain of right knee- Primary Type 2 diabetes mellitus with microalbuminuria, with long-term current use of insulin ([facility]) Right carpal tunnel syndrome Carpal tunnel syndrome Chronic hypoxic respiratory failure ([facility])- Primary Chronic heart failure with preserved ejection fraction (HFpEF) ([facility]) Type 2 diabetes mellitus with hyperglycemia, with long-term current use of insulin ([facility]) Pulmonary hypertension ([facility]) Other chronic pulmonary heart diseases Colon cancer screening Special screening for malignant neoplasms, colon Gastroesophageal reflux disease without esophagitis Esophageal reflux Dehydration- Primary Nausea and vomiting, unspecified vomiting type Type 2 diabetes mellitus with hyperglycemia, with long-term current use of insulin ([facility]) Class 3 severe obesity due to excess calories with serious comorbidity and body mass index (BMI) of40.0 to 44.9 in adult ([facility]) Chronic hypoxic respiratory failure ([facility]) Chronic heart failure with preserved ejection fraction (HFpEF) ([facility]) Type 2 diabetes mellitus with hyperglycemia, with long-term current use of insulin ([facility])- Primary Chronic heart failure with preserved ejection fraction (HFpEF) ([facility]) Mild episode of recurrent major depressive disorder JOHN (generalized anxiety disorder) Generalized anxiety disorder Gastroesophageal reflux disease without esophagitis Esophageal reflux Class 3 severe obesity due to excess calories with serious comorbidity and body mass index (BMI) of40.0 to 44.9 in adult ([facility]) Type 2 diabetes mellitus with hyperglycemia, with long-term current use of insulin ([facility])- Primary Benign essential hypertension Essential hypertension, benign Mild episode of recurrent major depressive disorder JOHN (generalized anxiety disorder) Generalized anxiety disorder Chronic heart failure with preserved ejection fraction (HFpEF) ([facility]) Type 2 diabetes mellitus with microalbuminuria, with long-term current use of insulin ([facility]) Class 3 severe obesity due to excess calories with serious comorbidity and body mass index (BMI) of40.0 to 44.9 in adult ([facility]) Encounter for long-term (current) use of medications Encounter for long-term (current) use of other medications Dyslipidemia Other and unspecified hyperlipidemia Primary osteoarthritis of both knees Acute pain of left knee- Primary documented in this encounter [facility]Evaluation note* Diagnosis Mild episode of recurrent major depressive disorder- Primary Type 2 diabetes mellitus with microalbuminuria, with long-term current use of insulin (H[facility]) JOHN (generalized anxiety disorder) Generalized anxiety disorder Migraine without aura and without status migrainosus, not intractable Irritable bowel syndrome with diarrhea Irritable bowel syndrome Gastroesophageal reflux disease without esophagitis Esophageal reflux Hot flashes due to menopause Morbid obesity ([facility]) 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.4) Obesity hypoventilation syndrome ([facility])- Primary Obesity hypoventilation syndrome Hypoxia Hypoxemia Type 2 diabetes mellitus with microalbuminuria, with long-term current use of insulin (HCC) Right carpal tunnel syndrome Carpal tunnel syndrome Elevated blood-pressure reading without diagnosis of hypertension Elevated blood pressure reading without diagnosis of hypertension Type 2 diabetes mellitus with hyperglycemia, with long-term current use of insulin ([facility])- Primary Mild episode of recurrent major depressive disorder JOHN (generalized anxiety disorder) Generalized anxiety disorder Carpal tunnel syndrome of left wrist Obesity hypoventilation syndrome ([facility]) Obesity hypoventilation syndrome Generalized edema Edema Irritable bowel syndrome with diarrhea Irritable bowel syndrome Gastroesophageal reflux disease without esophagitis Esophageal reflux Anxiety state Anxiety state, unspecified Type 2 diabetes mellitus with hyperglycemia, with long-term current use of insulin ([facility])- Primary Right carpal tunnel syndrome Carpal tunnel syndrome Chronic hypoxic respiratory failure (HCC) Mild episode of recurrent major depressive disorder JOHN (generalized anxiety disorder) Generalized anxiety disorder Generalized edema 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 Spondylosis of unspecified site without mention of myelopathy 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 elsewhere ([facility]) Acute pain of right knee- Primary Type 2 diabetes mellitus with microalbuminuria, with long-term current use of insulin ([facility]) Right carpal tunnel syndrome Carpal tunnel syndrome Chronic hypoxic respiratory failure (HCC)- Primary Chronic heart failure with preserved ejection fraction (HFpEF) ([facility]) Type 2 diabetes mellitus with hyperglycemia, with long-term current use of insulin ([facility]) Pulmonary hypertension (HCC) Other chronic pulmonary heart diseases Colon cancer screening Special screening for malignant neoplasms, colon Gastroesophageal reflux disease without esophagitis Esophageal reflux Dehydration- Primary Nausea and vomiting, unspecified vomiting type Type 2 diabetes mellitus with hyperglycemia, with long-term current use of insulin ([facility]) Class 3 severe obesity due to excess calories with serious comorbidity and body mass index (BMI) of40.0 to 44.9 in adult ([facility]) Chronic hypoxic respiratory failure (HCC) Chronic heart failure with preserved ejection fraction (HFpEF) ([facility]) Type 2 diabetes mellitus with hyperglycemia, with long-term current use of insulin ([facility])- Primary Chronic heart failure with preserved ejection fraction (HFpEF) ([facility]) Mild episode of recurrent major depressive disorder JOHN (generalized anxiety disorder) Generalized anxiety disorder Gastroesophageal reflux disease without esophagitis Esophageal reflux Class 3 severe obesity due to excess calories with serious comorbidity and body mass index (BMI) of40.0 to 44.9 in adult ([facility]) Type 2 diabetes mellitus with hyperglycemia, with long-term current use of insulin ([facility])- Primary Benign essential hypertension Essential hypertension, benign Mild episode of recurrent major depressive disorder JHON (generalized anxiety disorder) Generalized anxiety disorder Chronic heart failure with preserved ejection fraction (HFpEF) ([facility]) Type 2 diabetes mellitus with microalbuminuria, with long-term current use of insulin ([facility]) Class 3 severe obesity due to excess calories with serious comorbidity and body mass index (BMI) of40.0 to 44.9 in adult ([facility]) Encounter for long-term (current) use of medications Encounter for long-term (current) use of other medications Dyslipidemia Other and unspecified hyperlipidemia Primary osteoarthritis of both knees Acute pain of left knee- Primary documented in this encounter [facility] HealthcareEvaluation note* Diagnosis Mild episode of recurrent major depressive disorder- Primary Type 2 diabetes mellitus with microalbuminuria, with long-term current use of insulin ([facility]) JOHN (generalized anxiety disorder) Generalized anxiety disorder Migraine without aura and without status migrainosus, not intractable Irritable bowel syndrome with diarrhea Irritable bowel syndrome Gastroesophageal reflux disease without esophagitis Esophageal reflux Hot flashes due to menopause Morbid obesity ([facility]) 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.4) Obesity hypoventilation syndrome ([facility])- Primary Obesity hypoventilation syndrome Hypoxia Hypoxemia Type 2 diabetes mellitus with microalbuminuria, with long-term current use of insulin ([facility]) Right carpal tunnel syndrome Carpal tunnel syndrome Elevated blood-pressure reading without diagnosis of hypertension Elevated blood pressure reading without diagnosis of hypertension Type 2 diabetes mellitus with hyperglycemia, with long-term current use of insulin ([facility])- Primary Mild episode of recurrent major depressive disorder JOHN (generalized anxiety disorder) Generalized anxiety disorder Carpal tunnel syndrome of left wrist Obesity hypoventilation syndrome ([facility]) Obesity hypoventilation syndrome Generalized edema Edema Irritable bowel syndrome with diarrhea Irritable bowel syndrome Gastroesophageal reflux disease without esophagitis Esophageal reflux Anxiety state Anxiety state, unspecified Type 2 diabetes mellitus with hyperglycemia, with long-term current use of insulin ([facility])- Primary Right carpal tunnel syndrome Carpal tunnel syndrome Chronic hypoxic respiratory failure ([facility]) Mild episode of recurrent major depressive disorder JOHN (generalized anxiety disorder) Generalized anxiety disorder Generalized edema 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 Spondylosis of unspecified site without mention of myelopathy 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 elsewhere ([facility]) Acute pain of right knee- Primary Type 2 diabetes mellitus with microalbuminuria, with long-term current use of insulin ([facility]) Right carpal tunnel syndrome Carpal tunnel syndrome Chronic hypoxic respiratory failure ([facility])- Primary Chronic heart failure with preserved ejection fraction (HFpEF) ([facility]) Type 2 diabetes mellitus with hyperglycemia, with long-term current use of insulin ([facility]) Pulmonary hypertension ([facility]) Other chronic pulmonary heart diseases Colon cancer screening Special screening for malignant neoplasms, colon Gastroesophageal reflux disease without esophagitis Esophageal reflux Dehydration- Primary Nausea and vomiting, unspecified vomiting type Type 2 diabetes mellitus with hyperglycemia, with long-term current use of insulin ([facility]) Class 3 severe obesity due to excess calories with serious comorbidity and body mass index (BMI) of40.0 to 44.9 in adult ([facility]) Chronic hypoxic respiratory failure ([facility]) Chronic heart failure with preserved ejection fraction (HFpEF) ([facility]) Type 2 diabetes mellitus with hyperglycemia, with long-term current use of insulin ([facility])- Primary Chronic heart failure with preserved ejection fraction (HFpEF) [facility] [facility] Mild episode of recurrent major depressive disorder JOHN (generalized anxiety disorder) Generalized anxiety disorder Gastroesophageal reflux disease without esophagitis Esophageal reflux Class 3 severe obesity due to excess calories with serious comorbidity and body mass index (BMI) of40.0 to 44.9 in adult ([facility] [place] Type 2 diabetes mellitus with hyperglycemia, with long-term current use of insulin ([facility])- Primary Benign essential hypertension Essential hypertension, benign Mild episode of recurrent major depressive disorder JOHN (generalized anxiety disorder) Generalized anxiety disorder Chronic heart failure with preserved ejection fraction (HFpEF) ([facility]) Type 2 diabetes mellitus with microalbuminuria, with long-term current use of insulin ([facility]) Class 3 severe obesity due to excess calories with serious comorbidity and body mass index (BMI) of40.0 to 44.9 in adult ([facility] [place] Encounter for long-term (current) use of medications Encounter for long-term (current) use of other medications Dyslipidemia Other and unspecified hyperlipidemia Primary osteoarthritis of both knees Acute pain of left knee- Primary documented in this encounter [facility] HealthcareEvaluation note* Diagnosis Mild episode of recurrent major depressive disorder- Primary Type 2 diabetes mellitus with microalbuminuria, with long-term current use of insulin ([facility]) JOHN (generalized anxiety disorder) Generalized anxiety disorder Migraine without aura and without status migrainosus, not intractable Irritable bowel syndrome with diarrhea Irritable bowel syndrome Gastroesophageal reflux disease without esophagitis Esophageal reflux Hot flashes due to menopause Morbid obesity ([facility]) 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.4) Obesity hypoventilation syndrome ([facility])- Primary Obesity hypoventilation syndrome Hypoxia Hypoxemia Type 2 diabetes mellitus with microalbuminuria, with long-term current use of insulin ([facility]) Right carpal tunnel syndrome Carpal tunnel syndrome Elevated blood-pressure reading without diagnosis of hypertension Elevated blood pressure reading without diagnosis of hypertension Type 2 diabetes mellitus with hyperglycemia, with long-term current use of insulin ([facility])- Primary Mild episode of recurrent major depressive disorder JOHN (generalized anxiety disorder) Generalized anxiety disorder Carpal tunnel syndrome of left wrist Obesity hypoventilation syndrome ([facility]) Obesity hypoventilation syndrome Generalized edema Edema Irritable bowel syndrome with diarrhea Irritable bowel syndrome Gastroesophageal reflux disease without esophagitis Esophageal reflux Anxiety state Anxiety state, unspecified Type 2 diabetes mellitus with hyperglycemia, with long-term current use of insulin ([facility])- Primary Right carpal tunnel syndrome Carpal tunnel syndrome Chronic hypoxic respiratory failure ([facility]) Mild episode of recurrent major depressive disorder JOHN (generalized anxiety disorder) Generalized anxiety disorder Generalized edema 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 Spondylosis of unspecified site without mention of myelopathy 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 elsewhere (HCC) Acute pain of right knee- Primary Type 2 diabetes mellitus with microalbuminuria, with long-term current use of insulin ([facility]) Right carpal tunnel syndrome Carpal tunnel syndrome Chronic hypoxic respiratory failure (HCC)- Primary Chronic heart failure with preserved ejection fraction (HFpEF) ([facility]) Type 2 diabetes mellitus with hyperglycemia, with long-term current use of insulin ([facility]) Pulmonary hypertension ([facility]) Other chronic pulmonary heart diseases Colon cancer screening Special screening for malignant neoplasms, colon Gastroesophageal reflux disease without esophagitis Esophageal reflux Dehydration- Primary Nausea and vomiting, unspecified vomiting type Type 2 diabetes mellitus with hyperglycemia, with long-term current use of insulin ([facility]) Class 3 severe obesity due to excess calories with serious comorbidity and body mass index (BMI) of40.0 to 44.9 in adult ([facility] [place]) Chronic hypoxic respiratory failure ([facility]) Chronic heart failure with preserved ejection fraction (HFpEF) ([facility]) Type 2 diabetes mellitus with hyperglycemia, with long-term current use of insulin ([facility])- Primary Chronic heart failure with preserved ejection fraction (HFpEF) ([facility]) Mild episode of recurrent major depressive disorder JOHN (generalized anxiety disorder) Generalized anxiety disorder Gastroesophageal reflux disease without esophagitis Esophageal reflux Class 3 severe obesity due to excess calories with serious comorbidity and body mass index (BMI) of40.0 to 44.9 in adult ([facility] [place]) Type 2 diabetes mellitus with hyperglycemia, with long-term current use of insulin ([facility])- Primary Benign essential hypertension Essential hypertension, benign Mild episode of recurrent major depressive disorder JOHN (generalized anxiety disorder) Generalized anxiety disorder Chronic heart failure with preserved ejection fraction (HFpEF) ([facility]) Type 2 diabetes mellitus with microalbuminuria, with long-term current use of insulin ([facility]) Class 3 severe obesity due to excess calories with serious comorbidity and body mass index (BMI) of40.0 to 44.9 in adult ([facility] [place]) Encounter for long-term (current) use [...] microalbuminuria, with long-term current use of insulin ([facility]) JOHN (generalized anxiety disorder) Generalized anxiety disorder Migraine without aura and without status migrainosus, not intractable Irritable bowel syndrome with diarrhea Irritable bowel syndrome Gastroesophageal reflux disease without esophagitis Esophageal reflux Hot flashes due to menopause Morbid obesity ([facility] [place]) Morbid obesity FPC (current) use of insulin (Z79.4) Obesity hypoventilation syndrome ([facility] [place])- Primary Obesity hypoventilation syndrome Hypoxia Hypoxemia Type 2 diabetes mellitus with microalbuminuria, with long-term current use of insulin ([facility]) Right carpal tunnel syndrome Carpal tunnel syndrome Elevated blood-pressure reading without diagnosis of hypertension Elevated blood pressure reading without diagnosis of hypertension Type 2 diabetes mellitus with hyperglycemia, with long-term current use of insulin ([facility])- Primary Mild episode of recurrent major depressive disorder JOHN (generalized anxiety disorder) Generalized anxiety disorder Carpal tunnel syndrome of left wrist Obesity hypoventilation syndrome ([facility]) Obesity hypoventilation syndrome Generalized edema Edema Irritable bowel syndrome with diarrhea Irritable bowel syndrome Gastroesophageal reflux disease without esophagitis Esophageal reflux Anxiety state Anxiety state, unspecified Type 2 diabetes mellitus with hyperglycemia, with long-term current use of insulin ([facility])- Primary Right carpal tunnel syndrome Carpal tunnel syndrome Chronic hypoxic respiratory failure ([facility]) Mild episode of recurrent major depressive disorder JOHN (generalized anxiety disorder) Generalized anxiety disorder Generalized edema 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 Spondylosis of unspecified site without mention of myelopathy 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 elsewhere ([facility]) Acute pain of right knee- Primary Type 2 diabetes mellitus with microalbuminuria, with long-term current use of insulin ([facility]) Right carpal tunnel syndrome Carpal tunnel syndrome Chronic hypoxic respiratory failure ([facility])- Primary Chronic heart failure with preserved ejection fraction (HFpEF) ([facility]) Type 2 diabetes mellitus with hyperglycemia, with long-term current use of insulin ([facility]) Pulmonary hypertension ([facility]) Other chronic pulmonary heart diseases Colon cancer screening Special screening for malignant neoplasms, colon Gastroesophageal reflux disease without esophagitis Esophageal reflux Dehydration- Primary Nausea and vomiting, unspecified vomiting type Type 2 diabetes mellitus with hyperglycemia, with long-term current use of insulin ([facility]) Class 3 severe obesity due to excess calories with serious comorbidity and body mass index (BMI) of40.0 to 44.9 in adult ([facility] [place]) Chronic hypoxic respiratory failure ([facility]) Chronic heart failure with preserved ejection fraction (HFpEF) ([facility]) Type 2 diabetes mellitus with hyperglycemia, with long-term current use of insulin ([facility])- Primary Chronic heart failure with preserved ejection fraction (HFpEF) ([facility]) Mild episode of recurrent major depressive disorder JOHN (generalized anxiety disorder) Generalized anxiety disorder Gastroesophageal reflux disease without esophagitis Esophageal reflux Class 3 severe obesity due to excess calories with serious comorbidity and body mass index (BMI) of40.0 to 44.9 in adult ([facility] [place]) Type 2 diabetes mellitus with hyperglycemia, with long-term current use of insulin ([facility])- Primary Benign essential hypertension Essential hypertension, benign Mild episode of recurrent major depressive disorder JOHN (generalized anxiety disorder) Generalized anxiety disorder Chronic heart failure with preserved ejection fraction (HFpEF) ([facility]) Type 2 diabetes mellitus with microalbuminuria, with long-term current use of insulin ([facility]) Class 3 severe obesity due to excess calories with serious comorbidity and body mass index (BMI) of40.0 to 44.9 in adult ([facility] [place]) Encounter for long-term (current) use of medications Encounter for long-term (current) use of other medications Dyslipidemia Other and unspecified hyperlipidemia Primary osteoarthritis of both knees Acute pain of left knee- Primary Acute medial meniscus tear of left knee, initial encounter documented in this encounter [facility] HealthcareEvaluation note* Diagnosis Hypoxia- Primary Hypoxemia Dyspnea on exertion Other dyspnea and respiratory abnormality documented in this encounter [facility] SystemEvaluation noteNo assessment information available [facility] Work Phone: Evaluation note* Diagnosis Moderate persistent asthma without complication- Primary documented in this encounter [facility] SystemEvaluation note* Diagnosis Mild episode of recurrent major depressive disorder- Primary Type 2 diabetes mellitus with microalbuminuria, with long-term current use of insulin ([facility]) JOHN (generalized anxiety disorder) Generalized anxiety disorder Migraine without aura and without status migrainosus, not intractable Irritable bowel syndrome with diarrhea Irritable bowel syndrome Gastroesophageal reflux disease without esophagitis Esophageal reflux Hot flashes due to menopause Morbid obesity ([facility] [place]) 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.4) Obesity hypoventilation syndrome ([facility] [place])- Primary Obesity hypoventilation syndrome Hypoxia Hypoxemia Type 2 diabetes mellitus with microalbuminuria, with long-term current use of insulin ([facility]) Right carpal tunnel syndrome Carpal tunnel syndrome Elevated blood-pressure reading without diagnosis of hypertension Elevated blood pressure reading without diagnosis of hypertension Type 2 diabetes mellitus with hyperglycemia, with long-term current use of insulin ([facility])- Primary Mild episode of recurrent major depressive disorder JOHN (generalized anxiety disorder) Generalized anxiety disorder Carpal tunnel syndrome of left wrist Obesity hypoventilation syndrome ([facility]) Obesity hypoventilation syndrome Generalized edema Edema Irritable bowel syndrome with diarrhea Irritable bowel syndrome Gastroesophageal reflux disease without esophagitis Esophageal reflux Anxiety state Anxiety state, unspecified Type 2 diabetes mellitus with hyperglycemia, with long-term current use of insulin ([facility])- Primary Right carpal tunnel syndrome Carpal tunnel syndrome Chronic hypoxic respiratory failure ([facility]) Mild episode of recurrent major depressive disorder JOHN (generalized anxiety disorder) Generalized anxiety disorder Generalized edema 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 Spondylosis of unspecified site without mention of myelopathy 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 elsewhere ([facility]) Acute pain of right knee- Primary Type 2 diabetes mellitus with microalbuminuria, with long-term current use of insulin (HCC) Right carpal tunnel syndrome Carpal tunnel syndrome Chronic hypoxic respiratory failure (HCC)- Primary Chronic heart failure with preserved ejection fraction (HFpEF) ([facility]) Type 2 diabetes mellitus with hyperglycemia, with long-term current use of insulin ([facility]) Pulmonary hypertension (HCC) Other chronic pulmonary heart diseases Colon cancer screening Special screening for malignant neoplasms, colon Gastroesophageal reflux disease without esophagitis Esophageal reflux Dehydration- Primary Nausea and vomiting, unspecified vomiting type Type 2 diabetes mellitus with hyperglycemia, with long-term current use of insulin ([facility]) Class 3 severe obesity due to excess calories with serious comorbidity and body mass index (BMI) of40.0 to 44.9 in adult ([facility] [place]) Chronic hypoxic respiratory failure (HCC) Chronic heart failure with preserved ejection fraction (HFpEF) ([facility]) Type 2 diabetes mellitus with hyperglycemia, with long-term current use of insulin ([facility])- Primary Chronic heart failure with preserved ejection fraction (HFpEF) ([facility]) Mild episode of recurrent major depressive disorder JOHN (generalized anxiety disorder) Generalized anxiety disorder Gastroesophageal reflux disease without esophagitis Esophageal reflux Class 3 severe obesity due to excess calories with serious comorbidity and body mass index (BMI) of40.0 to 44.9 in adult ([facility] [place]) Type 2 diabetes mellitus with hyperglycemia, with long-term current use of insulin ([facility])- Primary Benign essential hypertension Essential hypertension, benign Mild episode of recurrent major depressive disorder JOHN (generalized anxiety disorder) Generalized anxiety disorder Chronic heart failure with preserved ejection fraction (HFpEF) ([facility]) Type 2 diabetes mellitus with microalbuminuria, with long-term current use of insulin ([facility]) Class 3 severe obesity due to excess calories with serious comorbidity and body mass index (BMI) of40.0 to 44.9 in adult ([facility] [place]) Encounter for long-term (current) use of medications Encounter for long-term (current) use of other medications Dyslipidemia Other and unspecified hyperlipidemia Primary osteoarthritis of both knees Type 2 diabetes mellitus with hyperglycemia, with long-term current use of insulin ([facility]) documented in this encounter [facility] HealthcareEvaluation note* Diagnosis Obstructive sleep apnea syndrome- Primary Obstructive sleep apnea (adult) (pediatric) Dyspnea on exertion Other dyspnea and respiratory abnormality Moderate persistent asthma without complication Chronic hypoxic respiratory failure ([facility] [place]) BMI 40.0-44.9, adult ([facility] [place]) Obesity, morbid, BMI 40.0-49.9 ([facility] [place]) [facility] Diagnosis Chronic hypoxic respiratory failure ([facility])- Primary Hypoxia Hypoxemia SOB (shortness of breath) Shortness of breath documented in this encounter [facility] SystemEvaluation note* Diagnosis Mild episode of recurrent major depressive disorder- Primary Type 2 diabetes mellitus with microalbuminuria, with long-term current use of insulin ([facility]) JOHN (generalized anxiety disorder) Generalized anxiety disorder Migraine without aura and without status migrainosus, not intractable Irritable bowel syndrome with diarrhea Irritable bowel syndrome Gastroesophageal reflux disease without esophagitis Esophageal reflux Hot flashes due to menopause Morbid obesity ([facility]) 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.4) Obesity hypoventilation syndrome ([facility])- Primary Obesity hypoventilation syndrome Hypoxia Hypoxemia Type 2 diabetes mellitus with microalbuminuria, with long-term current use of insulin ([facility]) Right carpal tunnel syndrome Carpal tunnel syndrome Elevated blood-pressure reading without diagnosis of hypertension Elevated blood pressure reading without diagnosis of hypertension Type 2 diabetes mellitus with hyperglycemia, with long-term current use of insulin ([facility])- Primary Mild episode of recurrent major depressive disorder JOHN (generalized anxiety disorder) Generalized anxiety disorder Carpal tunnel syndrome of left wrist Obesity hypoventilation syndrome ([facility]) Obesity hypoventilation syndrome Generalized edema Edema [...] myelopathy 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 elsewhere ([facility]) Acute pain of right knee- Primary Type 2 diabetes mellitus with microalbuminuria, with long-term current use of insulin ([facility]) Right carpal tunnel syndrome Carpal tunnel syndrome Chronic hypoxic respiratory failure (HCC)- Primary Chronic heart failure with preserved ejection fraction (HFpEF) ([facility]) Type 2 diabetes mellitus with hyperglycemia, with long-term current use of insulin ([facility]) Pulmonary hypertension (HCC) Other chronic pulmonary heart diseases Colon cancer screening Special screening for malignant neoplasms, colon Gastroesophageal reflux disease without esophagitis Esophageal reflux Dehydration- Primary Nausea and vomiting, unspecified vomiting type Type 2 diabetes mellitus with hyperglycemia, with long-term current use of insulin ([facility]) Class 3 severe obesity due to excess calories with serious comorbidity and body mass index (BMI) of40.0 to 44.9 in adult ([facility] [place]) Chronic hypoxic respiratory failure ([facility]) Chronic heart failure with preserved ejection fraction (HFpEF) ([facility]) Type 2 diabetes mellitus with hyperglycemia, with long-term current use of insulin ([facility])- Primary Chronic heart failure with preserved ejection fraction (HFpEF) ([facility]) Mild episode of recurrent major depressive disorder JOHN (generalized anxiety disorder) Generalized anxiety disorder Gastroesophageal reflux disease without esophagitis Esophageal reflux Class 3 severe obesity due to excess calories with serious comorbidity and body mass index (BMI) of40.0 to 44.9 in adult ([facility] [place]) Type 2 diabetes mellitus with hyperglycemia, with long-term current use of insulin ([facility])- Primary Benign essential hypertension Essential hypertension, benign Mild episode of recurrent major depressive disorder JOHN (generalized anxiety disorder) Generalized anxiety disorder Chronic heart failure with preserved ejection fraction (HFpEF) ([facility]) Type 2 diabetes mellitus with microalbuminuria, with long-term current use of insulin ([facility]) Class 3 severe obesity due to excess calories with serious comorbidity and body mass index (BMI) of40.0 to 44.9 in adult ([facility] [place]) Encounter for long-term (current) use [...] microalbuminuria, with long-term current use of insulin ([facility]) JOHN (generalized anxiety disorder) Generalized anxiety disorder Migraine without aura and without status migrainosus, not intractable Irritable bowel syndrome with diarrhea Irritable bowel syndrome Gastroesophageal reflux disease without esophagitis Esophageal reflux Hot flashes due to menopause Morbid obesity ([facility] [place]) Morbid obesity FPC (current) use of insulin (Z79.4) Obesity hypoventilation syndrome ([facility] [place])- Primary Obesity hypoventilation syndrome Hypoxia Hypoxemia Type 2 diabetes mellitus with microalbuminuria, with long-term current use of insulin ([facility]) Right carpal tunnel syndrome Carpal tunnel syndrome Elevated blood-pressure reading without diagnosis of hypertension Elevated blood pressure reading without diagnosis of hypertension Type 2 diabetes mellitus with hyperglycemia, with long-term current use of insulin ([facility])- Primary Mild episode of recurrent major depressive disorder JOHN (generalized anxiety disorder) Generalized anxiety disorder Carpal tunnel syndrome of left wrist Obesity hypoventilation syndrome ([facility]) Obesity hypoventilation syndrome Generalized edema Edema Irritable bowel syndrome with diarrhea Irritable bowel syndrome Gastroesophageal reflux disease without esophagitis Esophageal reflux Anxiety state Anxiety state, unspecified Type 2 diabetes mellitus with hyperglycemia, with long-term current use of insulin ([facility])- Primary Right carpal tunnel syndrome Carpal tunnel syndrome Chronic hypoxic respiratory failure ([facility]) Mild episode of recurrent major depressive disorder JOHN (generalized anxiety disorder) Generalized anxiety disorder Generalized edema 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 Spondylosis of unspecified site without mention of myelopathy 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 elsewhere ([facility]) Acute pain of right knee- Primary Type 2 diabetes mellitus with microalbuminuria, with long-term current use of insulin ([facility]) Right carpal tunnel syndrome Carpal tunnel syndrome Chronic hypoxic respiratory failure ([facility])- Primary Chronic heart failure with preserved ejection fraction (HFpEF) ([facility]) Type 2 diabetes mellitus with hyperglycemia, with long-term current use of insulin ([facility]) Pulmonary hypertension ([facility]) Other chronic pulmonary heart diseases Colon cancer screening Special screening for malignant neoplasms, colon Gastroesophageal reflux disease without esophagitis Esophageal reflux Dehydration- Primary Nausea and vomiting, unspecified vomiting type Type 2 diabetes mellitus with hyperglycemia, with long-term current use of insulin ([facility]) Class 3 severe obesity due to excess calories with serious comorbidity and body mass index (BMI) of40.0 to 44.9 in adult ([facility]) Chronic hypoxic respiratory failure ([facility]) Chronic heart failure with preserved ejection fraction (HFpEF) ([facility]) Type 2 diabetes mellitus with hyperglycemia, with long-term current use of insulin ([facility])- Primary Chronic heart failure with preserved ejection fraction (HFpEF) ([facility]) Mild episode of recurrent major depressive disorder JOHN (generalized anxiety disorder) Generalized anxiety disorder Gastroesophageal reflux disease without esophagitis Esophageal reflux Class 3 severe obesity due to excess calories with serious comorbidity and body mass index (BMI) of40.0 to 44.9 in adult ([facility]) Type 2 diabetes mellitus with hyperglycemia, with long-term current use of insulin ([facility])- Primary Benign essential hypertension Essential hypertension, benign Mild episode of recurrent major depressive disorder JOHN (generalized anxiety disorder) Generalized anxiety disorder Chronic heart failure with preserved ejection fraction (HFpEF) ([facility]) Type 2 diabetes mellitus with microalbuminuria, with long-term current use of insulin ([facility]) Class 3 severe obesity due to excess calories with serious comorbidity and body mass index (BMI) of40.0 to 44.9 in adult ([facility]) Encounter for long-term (current) use of medications Encounter for long-term (current) use of other medications Dyslipidemia Other and unspecified hyperlipidemia Primary osteoarthritis of both knees Pre-op examination- Primary documented in this encounter [facility] HealthcareEvaluation note* Diagnosis Onset Date Resolution Status Admit Date Benign essential hypertension acuteOctober 2024 10:48amChronic heart failure with preserved ejection fraction (HFpEF)acuteOctober 2024 10:48amClass 3 severe obesity due to excess calories with serious comorbidity andacuteOctober 2024 10:48amGAD (generalized anxiety disorder)acuteOctober 2024 10:48amMild episode of recurrent major depressive disorderacuteOctober 2024 10:48amType 2 diabetes mellitus with hyperglycemia, with long-term current use ofacuteOctober 2024 10:48am [facility] Work Phone: Evaluation note* Diagnosis [...] with long-term current use ofacuteOctober 2024 10:48am [facility] Work Phone: Evaluation note* Diagnosis Pure hypercholesterolemia- Primary Chronic heart failure with preserved ejection fraction ([facility]) [facility] Additional Instructions POST CATARACT SURGERY [...] worsening of your eyesight. 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 If after business hours call Dr. Randall Soria at his cell [phone] or his office [phone].[facility] Work Phone: Hospital Discharge instructionsAmbulatory Orders* Referral to ENT Time Frame: 06/05/25, Location: None Selected [facility] Work Phone: InstructionsNot on filedocumented [...] Medicine Diagnoses Mediastinal lymphadenopathy Ryan Mcneal MD [facility] [address] [place] [address] [facility] Pul Sleep Med [address] [address] Referral IDStatusReasonStart DateExpiration DateVisits RequestedVisits [id number] Review Specialty Services Required [facility] for referral (narrative)* Consultation (Routine) - Pending ReviewSpecialtyDiagnoses / ProceduresReferred By ContactReferred To ContactPulmonary Medicine Diagnoses Hypoxia Eddie Zurita APRN-CNP [address], [facility] [address] [place] [address] Lindsay Arrieta, DO [facility] [place] [address] Referral IDStatusReasonStart DateExpiration DateVisits RequestedVisits [id number] Review Specialty Services Required / * Misc (Routine) - Pending ReviewSpecialtyDiagnoses / ProceduresReferred By ContactReferred To Contact Procedures Discharge Follow-Up Eddie Zurita APRN-CNP [address], [facility] [address] [place] [address] Referral IDStatusReasonStart DateExpiration DateVisits RequestedVisits [id number] Review/ * Misc (Routine) - Pending ReviewSpecialtyDiagnoses / ProceduresReferred By ContactReferred To Contact Diagnoses Hyperglycemia Acute cystitis without hematuria Procedures Follow-up with primary care provider Eddie Zurita APRN-CNP [address], [facility] [address] [place] [address] Referral IDStatusReasonStart DateExpiration DateVisits RequestedVisits [id number] Review/ * Misc (Routine) - Pending ReviewSpecialtyDiagnoses / ProceduresReferred By ContactReferred To Contact Procedures Adult diet Eddie Zurita, POT OPERATOR-OPERATING SYSTEMS SPECIALIST [address], [place] [address] [place] [address] Referral IDStatusReasonStart DateExpiration DateVisits RequestedVisits [id number] Review/ [facility] (narrative)No reason for referral information availableL[facility]aster [facility] Work Phone: Reason for visit Narrative* Auth/CertSpecialty Diagnoses / ProceduresReferred By ContactReferred To Contact Diagnoses DKA, type 1, not at goal (HCC) DKA Jamal Levine MD [address] [address] [facility] [address] [place] [address] Referral IDStatusReasonStart DateExpiration DateVisits RequestedVisits [id number] [facility] Phone: reason for visit Narrative* Consultation (Routine) - Pending ReviewSpecialtyDiagnoses / ProceduresReferred By ContactReferred To ContactCardiothoracic Surgery Diagnoses Cavitary lesion of lung Diaz Dalton MD [address] [place] [address] Ryan Mcneal MD [address] [facility] [address] [place] [address] Referral IDStatusReasonStart DateExpiration DateVisits RequestedVisits [id number] Review Specialty Services Required / [facility] for visit Narrative* Misc (Routine) - Closed SpecialtyDiagnoses / ProceduresReferred By ContactReferred To Contact Diagnoses JOSE M (obstructive sleep apnea) Chronic hypoxic respiratory failure ([facility]) Severe obesity (BMI >= 40) ([facility]) Procedures PSG Diagnostic Smitha Germain MD [address] [facility] [address] [place] [address] Phone: tel: fax: Referral IDStatusReasonStart DateExpiration DateVisits RequestedVisits [id number]/6/20248/ [facility] for visit Narrative* Consultation (Routine) - AuthorizedSpecialtyDiagnoses / ProceduresReferred By ContactReferred To ContactPhysical Therapy Diagnoses Acute pain of left knee Procedures [place] OFFICE/OUTPATIENT NEW HIGH MDM 60 MINUTES Jr. Harinder Jackson, DO [address] [facility] [address] [place] [address] Phone: tel: fax: Shakila Valadez, MELODY Referral IDStaGiselleasonStart DateExpiration DateVisits RequestedVisits [id number] Consult and Treat / [facility] for visit Narrative* Consultation (Routine) - Authorized SpecialtyDiagnoses / ProceduresReferred By ContactReferred To ContactPhysical Therapy Diagnoses Acute pain of left knee Procedures [place] OFFICE/OUTPATIENT NEW HIGH MDM 60 MINUTES Jr. Harinder Jackson, DO [address] [facility] [address] [place] [address] Phone: tel: fax: Shakila Valadez, MELODY Referral IDStatGregStart DateExpiration DateVisits RequestedVisits [id number] Consult and Treat [id number] [facility] Summary Purpose Family History No Family History Records Found Relationship Condition Age at Onset Recorded Date/T mame father Malignant neoplasm Unknown DeceasedUnknownmotherDiabetes mellitusUnknownHypertensionUnknown Advance Directives No Advanced Directives Records FoundLatest Code Status on File Code StatusDate ActivatedDate InactivatedCommentsFull Code09/28/2021 9:46 AMDate ActivatedDate InactivatedComments12/20/2023 10:13 PM12/23/2023 5:45 PMDate ActivatedDate GrpazahjvniZdhavlhy76/2/2023 6:38 AM06/05/2023 7:25 PMDate ActivatedDate InactivatedComments03/02/2019 2:48 PM03/03/2019 5:59 PMDate ActivatedDate BkingmpewanRbrvhlsx76/17/2024 10:40 PM07/23/2024 7:57 PMDate ActivatedDate InactivatedComments12/20/2023 10:13 PM12/23/2023 5:45 PMDate ActivatedDate PtbhuirghzqInjdzlep01/2/2023 6:38 AM06/05/2023 7:25 PMDate ActivatedDate InactivatedComments03/02/2019 2:48 PM03/03/2019 5:59 PMDate ActivatedDate KprzzzjptwmShaztfhl90/17/2024 10:40 PM07/23/2024 7:57 PMDate ActivatedDate InactivatedComments12/20/2023 10:13 PM12/23/2023 5:45 PMDate ActivatedDate KtbvxzafebaTryotwsj23/2/2023 6:38 AM06/05/2023 7:25 PMDate ActivatedDate InactivatedComments03/02/2019 2:48 [...] hyperglycemia, with long-term current use of insulin ([facility]) Diaz Dalton MD [address] [place] [address] Referral IDStatusReasonStart DateExpiration DateVisits RequestedVisits [id number] Review/[id number] / ProceduresReferred By ContactReferred To Contact Diagnoses Hypoxia Dyspnea on exertion Procedures Home O2 eval (desaturation screen) Lindsay Arrieta, DO [address] [address] Referral IDStatusReasonStart DateExpiration DateVisits RequestedVisits [id number] Review/[id number] / ProceduresReferred By ContactReferred To ContactRadiology Diagnoses Mediastinal lymphadenopathy Procedures CT chest with contrast Lindsay Arrieta, DO [address] [address] [place] [address] [place] [address] Phone: [phone] Referral IDStatusReasonStart DateExpiration DateVisits RequestedVisits [id number] Review/[id number] / ProceduresReferred By ContactReferred To Contact Diagnoses Moderate persistent asthma without complication Lindsay Arrieta, [place] [address]4260 Referral IDStatusReasonStart DateExpiration DateVisits RequestedVisits [id number]/17/20246/[id number] / Procedures Referred By ContactReferred To Contact Diagnoses Dyspnea on exertion Chronic hypoxic respiratory failure ([facility]-HCC) Moderate persistent asthma without complication Procedures Oxygen Therapy Lindsay Arrieta, [place] [address]4260 Referral IDStatusReasonStart DateExpiration DateVisits RequestedVisits [id number] [id number] / ProceduresReferred By ContactReferred To Contact Diagnoses Dyspnea on exertion Chronic hypoxic respiratory failure ([facility]-HCC) Procedures Echo complete W/O contrast Lindsay Arrieta, [place] [id number] Referral IDStatusReasonStart DateExpiration DateVisits RequestedVisits [id number] [id number] / ProceduresReferred By ContactReferred To Contact Diagnoses Chronic hypoxic respiratory failure ([facility]-HCC) SOB (shortness of breath) Hypoxia Procedures Oxygen Therapy Lindsay Arrieta, [address] [address] Referral IDStatusReasonStart DateExpiration DateVisits RequestedVisits [id number] Review/[id number] / ProceduresReferred By ContactReferred To Contact Diagnoses JOSE M (obstructive sleep apnea) Chronic hypoxic respiratory failure ([facility]-HCC) Severe obesity (BMI >= 40) ([facility]) Procedures Polysomnography 4 or more parameters with PAP titration Smitha Germain MD [address] [facility] [address] [place] [address] Referral IDStatusReasonRedding DateExpiration DateVisits RequestedVisits [id number] [id number] / ProceduresReferred By ContactReferred To Contact Diagnoses JOSE M (obstructive sleep apnea) Chronic hypoxic respiratory failure ([facility]) Severe obesity (BMI >= 40) ([facility]) Procedures PSG Diagnostic Smitha Germain MD [address] [facility] [address] [place] [address] Referral IDStatusReasonStart DateExpiration DateVisits RequestedVisits [id number] Review Chief Complaint and Reason for Visit [...] section and content) DATE CREATED AUTHOR 02/07/2021 [facility] DATE CREATED AUTHOR AUTHOR'S ORGANIZ ATION 02/20/2021 [facility] DATE CREATED AUTHOR AUTHOR'S ORGANIZ ATION 06/06/2021 [facility] DATE CREATED AUTHOR AUTHOR'S ORGANIZ ATION 10/01/2021 [facility] DATE CREATED AUTHOR AUTHOR'S ORGANIZ ATION 10/06/2021 [facility] DATE CREATED AUTHOR AUTHOR'S ORGANIZ ATION 12/09/2022 [facility] DATE CREATED AUTHOR AUTHOR'S ORGANIZ ATION 01/13/2023 [facility] DATE CREATED AUTHOR AUTHOR'S ORGANIZ ATION 07/17/2024 [facility] DATE CREATED AUTHOR AUTHOR'S ORGANIZ ATION 05/08/2025 [facility] DATE CREATED AUTHOR AUTHOR'S ORGANIZ ATION 05/16/2025 [facility] DATE CREATED AUTHOR AUTHOR'S ORGANIZ ATION 06/08/2025 [facility] DATE CREATED AUTHOR AUTHOR'S ORGANIZ ATION 06/21/2025 [facility] DATE CREATED AUTHOR AUTHOR'S ORGANIZ ATION 07/07/2025 [facility] Ordered Prescriptions (unrec ognized section and [...] * 1818 (Unheld by provider - Provider: uGido Salas DO) * 2109 (Given - Provider: Danica Platt RN) * 0609 (Given - Provider: Danica Platt RN) * 1510 (Given - Provider: Li Phelan RN) * 2245 (Given - Provider: Chinyere Aquino RN) * 0556 (Given - Provider: Cely Ro RN) * 1400 (Due - Provider: Guido aSlas DO) * 2200 (Due - Provider: Guido [...] PRN, Per Potassium Replacement Protocol, Starting on [facility] 09/30/21 at 1607
Administer as [...] * 0843 (Given - Provider: Jania Sierra, GEROGINA) * 0815 (Given - Provider: Lindsey Bryant [...] Sierra RN - Comment: 402 after eating AGENCY CASHIER notified no new orders) * 0815 (Given [...] disorder * 0921 (Given - Provider: Jared Heurta) * 0843 (Given - Provider: Jania Sierra [...] Date Diaz Dalton MD [address] [place] [address] [facility] - [facility]09/28/21Team MemberRelationshipSpecialtyStart DateEnd Date Diaz Dalton MD [address] [place] [address] PCP - GeneralFamily Medicine09/25/23Team MemberRelationshipSpecialtyStart DateEnd Date Diaz Dalton MD [address] [place] [address] PCP - GeneralFamily Medicine09/25/23Team MemberRelationshipSpecialtyStart DateEnd Date Diaz Dalton MD [address] [place] [address] PCP - GeneralFamily Medicine09/25/23Team MemberRelationshipSpecialtyStart DateEnd Date Diaz Dalton MD [address] [place] [address] PCP - GeneralFamily Medicine09/25/23Team MemberRelationshipSpecialtyStart DateEnd Date Diaz Dalton MD [address] [place] [address] PCP - GeneralFamily Medicine09/25/23Team MemberRelationshipSpecialtyStart DateEnd Date Diaz Dalton MD [address] [place] [address] PCP - GeneralFamily Medicine09/25/23Team MemberRelationshipSpecialtyStart DateEnd Date Diaz Dalton MD [address] [place] [address] PCP - GeneralFamily Jfovbgxe30/25/24Team MemberRelationshipSpecialtyStart Date End Date Diaz Dalton MD [address] [place] [address] PCP - GeneralFamily Medicine09/25/23Team MemberRelationshipSpecialtyStart DateEnd Date Diaz Dalton MD [address] [place] [address] PCP - GeneralFamily Medicine09/25/23Team MemberRelationshipSpecialtyStart DateEnd Date Diaz Dalton MD [address] [place] [address] PCP - GeneralFamily Medicine09/25/23Team MemberRelationshipSpecialtyStart DateEnd Date Diaz Dalton MD [address] [place] [address] PCP - GeneralFamily Medicine09/25/23Team MemberRelationshipSpecialtyStart DateEnd Date Diaz Dalton MD [address] [place] [address] PCP - GeneralFamily Medicine09/25/23Team MemberRelationshipSpecialtyStart DateEnd Date Diaz Dalton MD [address] [place] [address] PCP - GeneralFamily Medicine09/25/23Team MemberRelationshipSpecialtyStart DateEnd Date Diaz Dalton MD [address] [place] [address] PCP - GeneralFamily Medicine09/25/23Team MemberRelationshipSpecialtyStart DateEnd Date Diaz Dalton MD [address] [place] [address] PCP - GeneralFamily Medicine09/25/23Team MemberRelationshipSpecialtyStart DateEnd Date Diaz Dalton MD [address] [place] [address] PCP - GeneralFamily Medicine09/25/23Team MemberRelationshipSpecialtyStart DateEnd Date Diaz Dalton MD [address] [place] [address] PCP - GeneralFamily Medicine09/25/23Team MemberRelationshipSpecialtyStart DateEnd Date Diaz Dalton MD [address] [place] [address] PCP - GeneralFamily Medicine09/25/23Team MemberRelationshipSpecialtyStart DateEnd Date Diaz Dalton MD [address] [place] [address] PCP - GeneralFamily Medicine09/25/23Team MemberRelationshipSpecialtyStart DateEnd Date Diaz Dalton MD [address] [place] [address] PCP - GeneralFamily Medicine09/25/23Team MemberRelationshipSpecialtyStart DateEnd Date Diaz Dalton MD [address] [place] [address] PCP - GeneralFamily Medicine09/25/23Team MemberRelationshipSpecialtyStart DateEnd Date Diaz Dalton MD [address] [place] [address] PCP - GeneralFamily Medicine09/25/23Team MemberRelationshipSpecialtyStart DateEnd Date Diaz Dalton MD [address] [place] [address] PCP - GeneralFamily Medicine09/25/23Team MemberRelationshipSpecialtyStart DateEnd Date Diaz Dalton MD [address] [place] [address] PCP - GeneralFamily Medicine09/25/23Team MemberRelationshipSpecialtyStart DateEnd Date Diaz Dalton MD [address] [place] [address] PCP - GeneralFamily Medicine09/25/23Team MemberRelationshipSpecialtyStart DateEnd Date Diaz Dalton MD [address] [place] [address] PCP - GeneralFamily Xqnznkgc35/25/24Team MemberRelationshipSpecialtyStart Date End Date Diaz Dalton MD [address] [place] [address] PCP - GeneralFamily Oozmzrfp67/25/24Team MemberRelationshipSpecialtyStart Date End Date Diaz Dalton MD [address] [place] [address] PCP - GeneralFamily Akkzavuv82/25/24Team MemberRelationshipSpecialtyStart Date End Date Diaz Dalton MD [address] [place] [address] PCP - GeneralFamily Jjprusav41/25/24Team MemberRelationshipSpecialtyStart Date End Date Diaz Dalton MD [address] [place] [address] PCP - GeneralFamily Medicine09/25/23Team MemberRelationshipSpecialtyStart DateEnd Date Diaz Dalton MD [address] [place] [address] PCP - GeneralFamily Medicine09/24/21Team MemberRelationshipSpecialtyStart DateEnd Date Diaz Dalton MD [address] [place] [address] PCP - GeneralFamily Medicine09/24/21Team MemberRelationshipSpecialtyStart DateEnd Date Diaz Dalton MD [address] [place] [address] PCP - GeneralFamily Medicine09/24/21Team MemberRelationshipSpecialtyStart DateEnd Date Diaz Dalton MD [address] [place] [address] PCP - GeneralFamily Medicine09/24/21Team MemberRelationshipSpecialtyStart DateEnd Date Diaz Dalton MD [address] [place] [address] PCP - GeneralFamily Medicine09/24/21Team MemberRelationshipSpecialtyStart DateEnd Date Diaz Dalton MD [address] [place] [address] PCP - GeneralFamily Medicine09/24/21Team MemberRelationshipSpecialtyStart DateEnd Date Diaz Dalton MD [address] [place] [address] PCP - GeneralFamily Medicine09/24/21Team MemberRelationshipSpecialtyStart DateEnd Date Diaz Dalton MD [address] [place] [address] PCP - GeneralFamily Medicine09/24/21Team MemberRelationshipSpecialtyStart DateEnd Date Diaz Dalton MD [address] [place] [address] PCP - GeneralFamily Medicine09/24/21Team MemberRelationshipSpecialtyStart DateEnd Date Diaz Dalton MD [address] [place] [address] PCP - GeneralFamily Medicine09/24/21Team MemberRelationshipSpecialtyStart DateEnd Date Diaz Dalton MD [address] [place] [address] PCP - GeneralFamily Medicine09/24/21Team MemberRelationshipSpecialtyStart DateEnd Date Diaz Dalton MD [address] [place] [address] PCP - GeneralFamily Medicine09/24/21Team MemberRelationshipSpecialtyStart DateEnd Date Diaz Dalton MD [address] [place] [address] PCP - GeneralFamily Medicine09/24/21Team MemberRelationshipSpecialtyStart DateEnd Date Diaz Dalton MD PCP - GeneralFamily Medicine09/24/21Team MemberRelationshipSpecialtyStart DateEnd Date Diaz Dalton MD PCP - GeneralFamily Medicine09/24/21Team MemberRelationshipSpecialtyStart DateEnd Date Diaz Dalton MD PCP - GeneralFamily Medicine09/24/21Team MemberRelationshipSpecialtyStart DateEnd Date Diaz Dalton MD PCP - GeneralFamily Medicine05/16/24Team MemberRelationshipSpecialtyStart DateEnd Date Diaz Dalton MD [address] [place] [address] PCP - GeneralFamily Medicine05/28/24Team MemberRelationshipSpecialtyStart DateEnd Date Diaz Dalton MD [address] [place] [address] PCP - GeneralFamily Medicine05/28/24Team MemberRelationshipSpecialtyStart DateEnd Date Diaz Dalton MD [address] [place] [address] PCP - GeneralFamily Medicine05/28/24Team MemberRelationshipSpecialtyStart DateEnd Date Diaz Dalton MD [address] [place] [address] PCP - GeneralFamily Medicine05/28/24Team MemberRelationshipSpecialtyStart DateEnd Date Diaz Dalton MD [address] [place] [address] PCP - GeneralFamily Zzlkexfh99/25/24Team MemberRelationshipSpecialtyStart Date End Date Diaz Dalton MD [address] [place] [address] PCP - GeneralFamily Edybygrs82/25/24Team MemberRelationshipSpecialtyStart Date End Date Diaz Dalton MD [address] [place] [address] PCP - GeneralFamily Dmezynwe94/25/24Team MemberRelationshipSpecialtyStart Date End Date Diaz Dalton MD [address] [place] [address] PCP - GeneralFamily Cpculohy34/25/24Team MemberRelationshipSpecialtyStart Date End Date Diaz Dalton MD [address] [place] [address] PCP - GeneralFamily Coljhtar60/25/24Team MemberRelationshipSpecialtyStart Date End Date Diaz Dalton MD [address] [place] [address] PCP - GeneralFamily Medicine09/25/23Team MemberRelationshipSpecialtyStart DateEnd Date Diaz Dalton MD [address] [place] [address] PCP - GeneralFamily Medicine09/25/23Team MemberRelationshipSpecialtyStart DateEnd Date Diaz Dalton MD [address] [place] [address] PCP - GeneralFamily Medicine09/25/23Team MemberRelationshipSpecialtyStart DateEnd Date Diaz Dalton MD [address] [place] [address] PCP - GeneralFamily Medicine09/25/23Team MemberRelationshipSpecialtyStart DateEnd Date Diaz Dalton MD PCP - GeneralFamily Medicine10/27/24Team MemberRelationshipSpecialtyStart DateEnd Date Diaz Dalton MD PCP - GeneralFamily Medicine10/27/24Team MemberRelationshipSpecialtyStart DateEnd Date Diaz Dalton MD PCP - Generalmily Medicine10/27/24Team MemberRelationshipSpecialtyStart DateEnd Date Diaz Dalton MD [facility] - [facility]10/27/24Team MemberRelationshipSpecialtyStart DateEnd Date Diaz Dalton MD [address] [place] [address] PCP - Generalmily Medicine09/25/23Team MemberRelationshipSpecialtyStart DateEnd Date Diaz Dalton MD [address] [place] [address] PCP - Generalmily Medicine09/25/23Team MemberRelationshipSpecialtyStart DateEnd Date Diaz Dalton MD PCP - Generalmily Medicine10/27/24Team MemberRelationshipSpecialtyStart DateEnd Date Diaz Dalton MD [address] [place] [address] PCP - GeneralFamily Medicine09/25/23Team MemberRelationshipSpecialtyStart DateEnd Date Diaz Dalton MD [address] [place] [address] PCP - GeneralFamily Medicine09/25/23Team MemberRelationshipSpecialtyStart DateEnd Date Diaz Dalton MD [address] [place] [address] PCP - GeneralFamily Medicine09/25/23Team MemberRelationshipSpecialtyStart DateEnd Date Diaz Dalton MD PCP - GeneralFamily Medicine10/27/24Team MemberRelationshipSpecialtyStart DateEnd Date Diaz Dalton MD PCP - GeneralFamily Medicine10/27/24Team MemberRelationshipSpecialtyStart DateEnd Date Diaz Dalton MD PCP - GeneralFamily Medicine10/27/24Team MemberRelationshipSpecialtyStart DateEnd Date Diaz Dalton MD [address] [place] [address] PCP - GeneralFamily Medicine09/25/23Team MemberRelationshipSpecialtyStart DateEnd Date Diaz Dalton MD PCP - GeneralFamily Medicine10/27/24Team MemberRelationshipSpecialtyStart DateEnd Date Diaz Dalton MD PCP - GeneralFamily Medicine10/27/24Team MemberRelationshipSpecialtyStart DateEnd Date Diaz Dalton MD [address] [place] [address] PCP - GeneralFamily Medicine09/25/23Team MemberRelationshipSpecialtyStart DateEnd Date Diaz Dalton MD [address] [place] [address] PCP - GeneralFamily Medicine09/25/23Team MemberRelationshipSpecialtyStart DateEnd Date Diaz Dalton MD [address] [place] [address] PCP - GeneralFamily Medicine09/25/23Team MemberRelationshipSpecialtyStart DateEnd Date Diaz Dalton MD [address] [place] [address] PCP - GeneralFamily Medicine09/25/23Team MemberRelationshipSpecialtyStart DateEnd Date Diaz Dalton MD [address] [place] [address] PCP - GeneralFamily Medicine09/25/23Team MemberRelationshipSpecialtyStart DateEnd Date Diaz Dalton MD [address] [place] [address] PCP - GeneralFamily Medicine09/25/23Team MemberRelationshipSpecialtyStart DateEnd Date Diaz Dalton MD [address] [place] [address] PCP - GeneralFamily Medicine09/25/23Team MemberRelationshipSpecialtyStart DateEnd Date Diaz Dalton MD [address] [place] [address] PCP - GeneralFamily Medicine09/25/23Team MemberRelationshipSpecialtyStart DateEnd Date Diaz Dalton MD [address] [place] [address] PCP - GeneralFamily Medicine09/25/23Team MemberRelationshipSpecialtyStart DateEnd Date Diaz Dalton MD [address] [place] [address] PCP - GeneralFamily Medicine09/25/23Team MemberRelationshipSpecialtyStart DateEnd Date Diaz Dalton MD [address] [place] [address] PCP - GeneralFamily Medicine09/25/23Team MemberRelationshipSpecialtyStart DateEnd Date Diaz Dalton MD [address] [place] [address] PCP - GeneralFamily Medicine09/25/23Team MemberRelationshipSpecialtyStart DateEnd Date Diaz Dalton MD [address] [place] [address] [facility] - [facility]09/25/23Team MemberRelationshipSpecialtyStart DateEnd Date Diaz Dalton MD PCP - General acute hospital Medicine10/27/24 Team Status: Active Member Role Status Dates Diaz Dalton MD Primary Care Provider Active Team Status: Inactive Member Role Status Dates Diaz Dalton MD Primary Care Provider Active S tart: May 01, 2025 End: May 01, 2025Randall Soria MDAttending ProviderActiveStart: May 01, 2025 End: May 01, 2025Team MemberRelationshipSpecialtyStart DateEnd Date Diaz Dalton MD PCP - [facility]10/27/24Team MemberRelationshipSpecialtyStart DateEnd Date Diaz Dalton MD PCP - [facility]10/27/24Team MemberRelationshipSpecialtyStart DateEnd Date Diaz Dalton MD PCP - [facility]10/27/24 Team Status: Inactive Member Role Status Dates Diaz Dalton MD Primary Care Provider Active S tart: May 15, 2025 End: May 15, 2025Arsalan Curran ProviderActiveStart: May 15, 2025 End: May 15, 2025Team MemberRelationshipSpecialtyStart DateEnd Date Diaz Dalton MD PCP - [facility]09/25/23Team MemberRelationshipSpecialtyStart DateEnd Date Diaz Dalton MD PCP - Generalmily Medicine09/25/23Team MemberRelationshipSpecialtyStart DateEnd Date Diaz Dalton MD PCP - GeneralFamily Medicine09/25/23Team MemberRelationshipSpecialtyStart DateEnd Date Diaz Dalton MD PCP - General acute hospital Medicine09/25/23 Team Status: Inactive Member Role Status Dates Diaz Dalton MD Primary Care Provider Active S tart: June 05, 2025 End: June 05, 2025Diaz Dalton MDAttangel ProviderActiveStart: June 05, 2025 End: June 05, 2025Team MemberRelationshipSpecialtyStart DateEnd Date Diaz Dalton MD PCP - [facility]10/27/24 Team Status: Inactive Member Role Status Dates Diaz Dalton MD Primary Care Provider Active S tart: June 12, 2025 End: June 12, 2025Randall Soria MDAttending ProviderActiveStart: June 12, 2025 End: June 12, 2025Team MemberRelationshipSpecialtyStart DateEnd Date Diaz [facility]/23Team MemberRelationshipSpecialtyStart DateEnd Date Diaz Dalton MD PCP - Generalmily Medicine09/25/23Team MemberRelationshipSpecialtyStart DateEnd Date Diaz Dalton MD PCP - GeneralFamily Medicine10/27/24 Reason for Visit (unrecogniz ed section and content) ReasonCommentsPost-opReasonCommentsAmenorrheaReasonOnset DateCommentsmedical kretuhtin64/30/2024ReasonCommentsWound CheckS/P Cath 06/26/24ReasonComments Follow-upReasonOnset DateCommentsMed Znudyh874ReasonOnset DateCommentsMed Xjmxtj164ReasonCommentsFollow-upF[facility] f/UPReasonCommentsWell Women VisitReasonCommentsMed RefillReasonCommentsencounter to discuss test results ReasonCommentsFollow-gr7nRjrrpmrgotWvjtihMeaodntxHdzq PainFell 05/15/24Reason CommentsPainReasonOnset DateCommentsMed Uomtzb084ReasonOnset DateComments Med Fblhur1609/19/2024ReasonOnset DateCommentsMed Abghji5309/23/2024ReasonOnset Date CommentsMed Msqdyq1209/25/2024ReasonCommentsFollow-up3 MONTHSShortness of BreathON EXERTIONReasonCommentsFoot PainCarissa Santos 44yo. Patient relates her left foot is always numb, started about 9 months ago. NKI.ReasonCommentsCoughDenies Shortness of BreathDeniesWheezingDeniesSpecialtyDiagnoses / ProceduresReferred By ContactReferred To ContactPulmonary Medicine Diagnoses Mediastinal lymphadenopathy Ryan Mcneal MD [address] [place] [address] [facility] Pul Sleep Med [address] [address] Referral IDStatusReasonStart DateExpiration DateVisits RequestedVisits [id number] Review Specialty Services Required [id number] of BreathSpecialtyDiagnoses / ProceduresReferred By ContactReferred To Contact Diagnoses SOB (shortness of breath) Hyperglycemia Acute cystitis without hematuria Ezequiel Graff MD [address] [place] [address] Referral IDStatusReasonStart DateExpiration DateVisits RequestedVisits [id number]-umVlutxqcxouf lymphadenopathyCXR 1 VW: 7Bronch: 4PFT: not completedLabs: not completedSpecialty Diagnoses / ProceduresReferred By ContactReferred To ContactPulmonary Medicine Diagnoses Hypoxia Eddie Zurita, POT OPERATOR-OPERATING SYSTEMS SPECIALIST [address], [address] [place] [address] Lindsay Arrieta, DO [address] [place] [address] Referral IDStatusReW. D. [facility]low [facility] DateExpiration DateVisits RequestedVisits [id number] Review Specialty Services Required /[id number] RefillReasonCommentsSleep ApneaNo previous sleep studyNo PAP therpayArrived on 2Lnc of O2Uses 3Lnc of O2 at HSReasonOnset DateCommentsSleep Lab4Comp PSG/PAPReasonCommentsFollow-upMediastinal lymphadenopathyCT: 04/23/2024On 2Lnc of O2 on exertion, on 3Lnc of O2 at nightArrived on 3Lnc of I9IbroxbLenxh DateCommentsCardiac Cath4Reason CommentsFollow-upEST PT F/U CATH DONE L/S LLD SCHED W/PTReasonOnset DateComments Abnormal Lab4ReasonOnset DateCommentsCRITICAL LAB4Reason CommentsSleep ApneaCompliance/Setup: 09/19/2024DME: HartArrived on 3Lnc of O2, on 3Lnc of O2 on exertionReasonCommentsFollow-up3mo ov, l/s LLD - no labs/testing - appt sched w/ ptReasonCommentsFollow-up3m f/upLeft knee pain DepressionCoughWith sore throatReasonCommentsPainReasonOnset DateCommentsPPMM hqywdjqz35/02/2025ReasonOnset DateCommentsin pain02/27/2025ReasonComments Follow-upRight upper lobe nodule, c/o increased SOB, using TrelegyShortness of BreathCurrently 3 liters with PO and 3 liters with concentratorCoughNot really WheezingnoneReasonCommentsGenital WartsReasonCommentsFollow-upReasonOnset Date CommentsMed Wuxwcv9503/24/2025ReasonOnset DateCommentsre: PT so far03/28/2025 ReasonOnset DateCommentscalled and said that therapy is making her pain worse 03/27/2025ReasonOnset DateCommentsCx PT 04/07/2508ReasonCommentsLeft Ovarian PainReasonOnset DateCommentsMedial aspect of her eye and nose04/23/2025 ReasonCommentsFollow-upPatient needs F2F notes for recent home O2 evaluation per [facility] O2 Evaluation: 05/07/2025DME: [place]Arrived on 3Lnc of D7Huordq CommentsPre-op VisitReasonOnset DateComments? tmkkvsc8305/29/2025ReasonOnset Date CommentsSurgical Or Dental Uzdwnrpat19/06/2025ReasonCommentsFollow-upCongestive Heart FailurePre-op ExamKnee Arthroscope, not yet Dr [...] BE BASED ON THE PRIMARY CLINICAL RECORDS. [employer] [facility]. provides no warranty or guarantee of the accuracy or completeness of information in this document.
== END 2025-08-06 12:35 | disposition home or self-care (01) ==
LOC: MAMMO 12:34
PROVIDERS: PCP Family Medicine; Visit Provider Obstetrics & Gynecology
DX: Z12.31 Encounter for screening mammogram for malignant neoplasm of breast (principal)
CPT/HCPCS: 77063; 77067

== ENCOUNTER 2025-08-19 18:44 | Outpatient (REF) | payer MEDICAID, SELFPAY ==
--- OUTSIDE RECORDS SUMMARY | 2025-08-19 14:00 | XMS_ITS | Encounter Summary ---
Author Organization [facility] Address [address] [place] [address] Care Team Providers Care French Pastry Cook Name Role Phone Diaz Dalton MD Primary Care Provider [phone] Reason for Visit * ReasonCommentsGynecologic ExamPre-op Visit Encounter Details DateTypeDepartmentCare Team (Latest Contact Info)Oalfhjzdpea69/16/2025 2:00 PM ESTOffice Visit [facility] [place] [facility] [address] [address] Feliz Benz DO [address] [place] [address] Well woman exam with routine gynecological exam; Pre-op evaluation; Pelvic pain; Genital warts; Pain of ovary; Yeast infection Social History Tobacco UseTypesPacks/DayYears UsedDateSmoking Tobacco: NeverSmokeless Tobacco: NeverAlcohol UseStandard Drinks/WeekCommentsNever0 (1 standard drink = 0.6 oz pure alcohol)Caffeine: 1-2 cups/day , mountain dew occasionallyComments NoSex and Gender InformationValueDate RecordedSex Assigned at BirthNot on file Legal OxsXqeyny96/15/2023 6:38 PM EDTGender IdentityNot on fileSexual OrientationNot on filedocumented as of this encounter Last Filed Vital Signs Vital SignReadingTime TakenCommentsBlood Qduarnas441/8208/19/2025 1:32 PM EST Pulse--Temperature--Respiratory Rate--Oxygen Saturation--Inhaled Oxygen Concentration--Kkpngk644 kg (232 lb)08/19/2025 1:32 PM ESTHeight--Body Mass Index43.8409 1:24 PM EDTdocumented in this encounter Progress Notes * Taj Wheatley, FITNESS CONSULTANT - 08/19/2025 2:00 PM EST Reason for Appointment: Patient ID: Carissa Miller is a 45 y.o. female who presents for Gynecologic Exam and Pre-op Visit Patient presents today for Pre Op/Annual appointment. Patient is scheduled to undergo Diagnostic Laparoscopy, possible ANNE, possible FOE, possible BSO and cautery and destruction genital warts. on 09/19/[address] Benz at [facility]. MEDICATIONS Current Outpatient Medications Medication Instructions [...] (CELEXA) 40 mg, Oral, Daily Continuous Glucose Lathmaker (FreeStyle Crystal 3 [place]) device 1 Application, Does not apply, Continuous Continuous Glucose Sensor (FreeStyle Crystal 3 Sensor) [facility] USE TO MONITOR BLOOD SUGAR DIRECTED. CHANGE SENSOR EVERY 14 DAYS. Continuous Glucose Sensor (FreeStyle Crystal 3 Sensor) [facility] USE TO MONITOR BLOOD SUGAR DIRECTED. CHANGE [...] UNITS DAILY* insulin pen needle (Droplet Pen Covelo) 32G x 4 mm misc Use as instructed lamoTRIgine (LAMICTAL) 200 mg, Oral, Nightly lanolin (Lansinoh) cream Topical, As needed lisinopril 2.5 mg, Oral, Daily LORazepam (ATIVAN) 1 mg, Oral, 3 times daily PRN metoprolol tartrate (Lopressor) 50 MG tablet Misc. Devices misc Dispense: Front Wheeled walker use 90 days. Ht: 5'1 Weight: 206lb nabumetone (RELAFEN) 500 mg, Oral, 2 times daily PRN ofloxacin (Ocuflox) 0.3 % ophthalmic solution INSTILL 1 DROP INTO AFFECTED EYE X4/DAY DIRECTED START 3DAYS PRIOR TO SX,THEN IMMEDIATELY FOLLOWING SX EVERY HOUR W/A,THEN X4/DAY NEXT DAY TIL APPT *04/14* ondansetron (Zofran) 4 MG tablet TAKE 1 TABLET BY MOUTH EVERY 6 HOURS NEEDED FOR NAUSEA & VOMITING ondansetron ODT (Zofran-ODT) 4 MG disintegrating tablet [...] Allergies Allergen Reactions Sulfamethoxazole-Trimethoprim Hives and Itching Other Reaction(s): Other (See Comments) Clindamycin Other Reaction(s): rash Sulfamethoxazole Other Reaction(s): Rash Trimethoprim Other Reaction(s): Rash PROBLEMS Active Ambulatory Problems Diagnosis Date Noted Allergic rhinitis due to allergen 10/01/2009 JOHN (generalized anxiety disorder) 10/01/2009 Contracture, unspecified ankle 04/06/2023 Chronic heart failure with preserved ejection fraction (HFpEF) ([facility]) 04/06/2023 Equinus deformity of left foot 04/06/2023 Gastroesophageal reflux disease 04/06/2023 Genital warts 04/06/2023 Hot flashes due to menopause 04/06/2023 Type 2 diabetes mellitus with microalbuminuria, with long-term current use of insulin ([facility]) 04/06/2023 Internal derangement of left shoulder 04/06/2023 Irritable bowel syndrome with diarrhea 04/06/2023 Mild developmental delay 09/29/2021 Migraine without aura and without status migrainosus, not intractable 04/06/2023 Mild episode of recurrent major depressive disorder 04/06/2023 Class 3 severe obesity due to excess calories with serious comorbidity and body mass index (BMI) of40.0 to 44.9 in adult ([facility]) 11/21/2022 Type 2 diabetes mellitus with polyneuropathy ([facility]) 06/10/2021 Obstructive sleep apnea syndrome 09/30/2009 Osteoarthritis of knee 04/06/2023 Overactive bladder 04/06/2023 Panic disorder without agoraphobia 11/12/2009 Dyslipidemia 04/22/2010 Spondylosis without myelopathy 08/10/2010 Obesity hypoventilation syndrome ([facility]) 01/04/2024 Benign essential hypertension 01/04/2024 Right carpal tunnel syndrome 01/04/2024 Type 2 diabetes mellitus with hyperglycemia, with long-term current use of insulin ([facility]) 02/12/2024 Moderate persistent asthma without complication ([facility]) 02/19/2024 Pulmonary hypertension ([facility]) 08/06/2024 Dehydration 10/28/2024 Nausea & vomiting 10/28/2024 Encounter for long-term (current) use of medications 02/10/2025 Resolved Ambulatory Problems Diagnosis Date Noted Acute kidney injury (DREW) with acute tubular necrosis (ATN) 09/30/2021 Acute pain of left shoulder 04/06/2023 Shoulder joint pain 04/06/2021 Carpal tunnel syndrome of left wrist 04/06/2023 Convulsions in the ([facility]) 09/30/2009 Cubital tunnel syndrome on left 11/04/2022 Fecal incontinence 06/22/2016 High anion gap metabolic acidosis 09/30/2021 Hyperglycemia 03/01/2019 Mild intellectual disability 09/30/2009 Other chronic pain 04/06/2023 Pneumonia due to infectious organism 09/29/2021 Poorly controlled diabetes mellitus ([facility]) 08/10/2015 Normal gynecologic examination 06/09/2015 Missed period 04/06/2023 DKA, type 1, not at goal ([facility]) 09/27/2021 Type 2 diabetes mellitus ([facility]) 09/30/2009 Cavitary lesion of lung 08/10/2023 Other chest pain 08/10/2023 Hypoxia 01/04/2024 Chronic hypoxic respiratory failure ([facility]) 02/19/2024 Acute pain of right knee 05/29/2024 Past Medical History: Diagnosis Date Ankle fracture Anxiety and depression At low risk for fall Bilateral leg edema Chest pain, central Chronic left shoulder pain Chronic pain Chronic respiratory failure ([facility]) Epilepsy ([facility]) GERD (gastroesophageal reflux disease) History of being hospitalized History of medical problems Hyperlipidemia Insomnia, persistent MDD (major depressive disorder), recurrent episode, mild Morbid obesity with BMI of 40.0-44.9, adult ([facility]) Nocturnal hypoxemia Nonsmoker OAB (overactive bladder) Obesity JOSE M (obstructive sleep apnea) Postoperative urinary retention Primary osteoarthritis of left knee Seasonal allergies Type 2 diabetes mellitus with diabetic polyneuropathy, with long-term current use of insulin ([facility]) Type 2 diabetes mellitus without complication ([facility]) Vitamin D deficiency HISTORY PAST MEDICAL HISTORY SOCIAL HISTORY Past Medical History: Diagnosis Date Ankle fracture Anxiety and depression At low risk for fall Bilateral leg edema Chest pain, central Chronic left shoulder pain Chronic pain Chronic respiratory failure ([facility]) Dyslipidemia Epilepsy ([facility]) Childhood epilepsy JOHN (generalized anxiety disorder) Genital warts GERD (gastroesophageal reflux disease) History of being hospitalized pneumonia, diabetes, infection [10/29/21-11/05/21] History of medical problems mild mental retardation Hyperlipidemia Insomnia, persistent Irritable bowel syndrome with diarrhea MDD (major depressive disorder), recurrent episode, mild Migraine without aura and without status migrainosus, not intractable Morbid obesity with BMI of 40.0-44.9, adult ([facility]) Nocturnal hypoxemia Nonsmoker OAB [...] 12/29/2017 Diagnostic laparoscopy LAPAROTOMY OVARIAN CYSTECTOMY 03/31/2023 [place] ARTHROCENTESIS ASPIR&/INJ MAJOR JT/BURSA W/O US Right [...] reviewed. Exam conducted with a director of operations for therapy present. Vitals: Estimated body mass index is 43.84 kg/m?? as calculated from the following: Height as of 06/03/25: 5' 1 . Weight as of this encounter: 232 lb. BP: 124/82 No LMP recorded. Patient is premenopausal. Assessment/Plan ICD-10-CM 1. Well woman exam with routine gynecological exam Z01.419 THIN PREP TIS PAP AND HR HPV DNA 2. Pre-op evaluation Z01.818 3. Pelvic pain R10.20 4. Genital warts A63.0 5. Pain of ovary N94.89 Assessment/Plan Annual: Patient presents today for an annual exam. Patient states she is doing well and has no complaints. Pap was obtained without difficulty. Pre Op: Patient is doing well but has complaints of pelvic pain and genital warts. I have discussed conservative management vs. surgical management with the patient in detail and patient desires surgical management at this time. Patient will undergo Diagnostic Laparoscopy, possible ANNE, possible FOE, possible BSO and cautery and destruction of genital warts on 09/19/24. Surgical consents were signed, mmcwas reviewed, and patient is to proceed to [facility]. Follow Up: Patient is to follow up between 1-2 weeks post operative to assess proper healing and recovery fromprocedure. Documented by Taj Wheatley LPN on behalf of: Feliz Bezn DO documented in this encounter Miscellaneous Notes * Addendum Note - Taj Wheatley LPN - 08/19/2025 2:00 PM ESTAddended by: TAJ WHEATLEY on: 08/19/2025 03:06 PM Modules accepted: Orders documented in this encounter Plan of Treatment NameTypePriorityAssociated DiagnosesOrder ScheduleTHIN PREP TIS PAP AND HR HPV DNAPathology and CytologyRoutine Well woman exam with routine gynecological exam Ordered: 08/19/2025documented as of this encounter Visit Diagnoses Diagnosis Well woman exam with routine gynecological exam Routine gynecological examination Pre-op evaluation Pelvic pain Genital warts Condyloma acuminatum Pain of ovary Yeast infection documented in this encounter Care Teams Team MemberRelationshipSpecialtyStart DateEnd Date Diaz Dalton MD [address] [place] [id number] PCP - GeneralFamily Medicine09/25/23documented as of this encounter
--- OUTSIDE RECORDS SUMMARY | 2025-08-19 18:48 | XMS_ITS | Patient Health Record ---
Author Organization [facility] [place] Address [address] [place] [address] Care Team Providers Care Medical Laboratory Technician Name Role Phone Diaz Dalton MD Primary [...] ONLY [address] [place] [id number] [phone] Enid Miller - patient is the insured [...] Surgical History Surgery Date(Month/Year) genital wart removal [id number] Dznsmkkusia9275YnmhuwtlplyvdsxNlrpnqxuqqyeaoo History Reason Date(Month/Year) bilateral pneumonia
--- OUTSIDE RECORDS SUMMARY | 2025-08-19 18:48 | XMS_ITS | Clinical Summary ---
Author Organization [facility] Address [address] [place] [address] Care Team Providers Care Automobile Mechanic Radiator Name Role Phone Diaz Dalton MD Primary Care Provider + Allergies Active AllergyReactionsCriticalityNoted DateComments Sulfamethoxazole-DrcxqmkqqhxeFgphgkk27/10/2012 Medications MedicationSigDispense QuantityRefillsLast FilledStart DateEnd DateStatus hyoscyamine [...] acute tubular necrosis (ATN)09/30/2021High anion gap metabolic qswewipe80/27/2022neumonia due to infectious nfobuwhm78/26/2022Mental developmental delay2DKA, type 1, not at goal09/27/2021 Family History Medical HistoryRelationNameCommentsNo Known ProblemsMotherRelationNameStatus CommentsMotherAlive Social History Tobacco UseTypesPacks/DayYears UsedDateSmoking Tobacco: NeverSmokeless Tobacco: NeverAlcohol UseStandard Drinks/WeekCommentsNever0 (1 standard drink = 0.6 oz pure alcohol)CommentsUnknownSex and Gender InformationValueDate Recorded Sex Assigned at BirthNot on fileLegal EtmKtegqh45/24/2022 2:40 AM ESTGender IdentityNot on fileSexual OrientationNot on file Last Filed Vital Signs Vital SignReadingTime TakenCommentsBlood Vobmfefl276/80010/03/2021 11:29 AM EST Szawv032710/03/2021 11:29 AM PVZNttafyggnbh52.4 ??C (97.5 ??F)10/03/2021 11:29 AM ESTRespiratory Zock485510/03/2021 11:29 AM ESTOxygen Upaccftquc69%10/03/2021 11:29 AM ESTInhaled Oxygen Concentration--Jkktkk144.2 kg (223 lb 3.2 oz)09/29/2021 6:00 AM ADHCuzheq021.4 cm (5')09/28/2021 9:30 AM ESTBody Mass Index43.59 09/28/2021 9:30 AM EST Plan of Treatment Not on file Insurance Advance Directives * Full Code (Latest Code Status on File) Date ActivatedDate InactivatedComments09/28/2021 9:46 AM10/03/2021 4:19 PM Care Teams Team MemberRelationshipSpecialtyStart DateEnd Date Diaz Dalton MD [address] [place] [address] PCP - GeneralFamily Medicine09/28/21
--- OUTSIDE RECORDS SUMMARY | 2025-08-19 18:48 | XMS_ITS | Encounter Summary ---
Author Organization [facility] Address [address] [place] [address] Care Team Providers Care Ornamental Iron Erector Name Role Phone Diaz Dalton MD Primary Care Provider Encounter Details DateTypeDepartmentCare Team (Latest Contact Info)Idbdcxaiuoi19/03/2025Clinisync Result Encounter [facility] Unsolicited Feliz Benz, DO [address] [facility] [address] [place], [place] [id number] Social History Tobacco UseTypesPacks/DayYears UsedDateSmoking Tobacco: NeverSmokeless Tobacco: NeverAlcohol UseStandard Drinks/WeekCommentsNever0 (1 standard drink = 0.6 oz pure alcohol)Caffeine: 1-2 cups/day , mountain dew occasionallyComments NoSex and Gender InformationValueDate RecordedSex Assigned at BirthNot on file Legal TxzAyprls76/15/2023 6:38 PM EDTGender IdentityNot on fileSexual OrientationNot on filedocumented as of this encounter Plan of Treatment Not on file documented as of this encounter Procedures Procedure NamePriorityDate/TimeAssociated DiagnosisCommentsMM TOMOSYNTHESIS SCREENING BI08/06/2025 3:57 PM EST documented in this encounter Results * MM TOMOSYNTHESIS SCREENING BI (08/06/2025 3:57 PM EST)Anatomical Region LateralityModalityOtherSpecimen (Source)Anatomical Location / Laterality Collection Method / VolumeCollection TimeReceived Time08/06/2025 3:57 PM EST Narrative 08/06/2025 3:58 PM EST [facility] ?[address] ? [place], [id number] ? Mammography Report ? Signed ? Patient: CARISSA LOZADA R ?MR#: [id number] ?? : 1980 ?Acct:[id number] ?? Age/Sex: 45 / F ?ADM Date: 08/06/25 ?? Loc: MAMMO ? Attending Dr: Feliz Benz D.O. ? Ordering Physician: Feliz Benz D.O. ?Results: ? Date of Service: 08/06/25 ?Follow Up: ? Procedure(s): MM tomosynthesis screening BI ?? Accession Number(s): [id number] ? cc: Feliz Benz D.O.; Diaz Dalton M.D. ? Patient Name: ? CARISSADARRYL LOZADA ? MR#: [id number] ? : 1980 ? Exam Date: 08/06/2025 ?? Ordering Doctor: DR FELIZ BENZ . ? RADIOLOGY REPORT ? PROCEDURE: ? MM TOMOSYNTHESIS SCREENING BI ? COMPARISON: ? MM TOMOSYNTHESIS SCREENING BI, 06/28/2024. ??MM TOMOSYNTHESIS ?? SCREENING BI, 06/26/2023. ??MG MAMM SCREEN 3D DINAH CAD, 06/22/2022. ??MG MAMM DINAH ?? DIAG W CAD, 02/02/2016. ? INDICATIONS: ? screening ? Calculator Name ? NCI Breast Cancer Risk Assessment Tool ?? 5 Year Breast Cancer Risk ? 0.90% ?? Lifetime Breast Cancer Risk ? 9.60% ?? Personal Breast Cancer ?No ?? Personal Ovarian Cancer ? No ?? Treatments ? None ?? Family Cancers ? None ? LOCATION: ? [facility] ? BREAST COMPOSITION: ? There are scattered areas of fibroglandular density. ? FINDINGS: ? RIGHT BREAST: ??No significant suspicious finding. ? LEFT BREAST: ??No significant suspicious finding. ??Benign-appearing ?? calcifications are present. ? DIAGNOSTIC CATEGORY 2--BENIGN FINDING. NO CHANGE FROM COMPARISON. ? RECOMMENDATIONS: ? ROUTINE MAMMOGRAM AND CLINICAL EVALUATION IN 12 MONTHS. ? Dictated by: Lan Valdez MD on 08/06/2025 at 15:50 ? Approved by: Lan Valdez MD on 08/06/2025 at 15:57 ? Dictated By: ?Lan Valdez M.D. ? Signed By: ?08/06/25 1558 ? DD/ 1557 ? TD/TT: ? Explosives Worker: Procedure Note Radiology, Radiologist, - 08/06/2025 [place] [id number] Mammography Report Signed Patient: CARISSA LOZADA RMR#: [id number] : 1980Acct:[id number] Age/Sex: 45 / FADM Date: 08/06/25 Loc: MAMMO Attending Dr: Feliz Benz D.O. Ordering Physician: Feliz Benz D.O.Results: Date of Service: 08/06/25Follow Up: Procedure(s): MM tomosynthesis screening BI Accession Number(s): [id number] cc: Feliz Benz D.O.; Diaz Dalton M.D. Patient Name: CARISSA LOZADA MR#: [id number] : 1980 Exam Date: 08/06/2025 Ordering Doctor: DR FELIZ BENZ . RADIOLOGY REPORT PROCEDURE: MM TOMOSYNTHESIS SCREENING BI COMPARISON: MM TOMOSYNTHESIS SCREENING BI, 06/28/2024. MMTOMOSYNTHESIS SCREENING BI, 06/26/2023. MG MAMM SCREEN 3D DINAH CAD, 06/22/2022. MG MAMMBIL DIAG W CAD, 02/02/2016. INDICATIONS: screening Calculator Name NCI Breast Cancer Risk Assessment Tool 5 Year Breast Cancer Risk 0.90% Lifetime Breast Cancer Risk 9.60% Personal Breast Cancer No Personal Ovarian Cancer No Treatments None Family Cancers None LOCATION: [facility] BREAST COMPOSITION: There are scattered areas of fibroglandulardensity. FINDINGS: RIGHT BREAST: No significant suspicious finding. LEFT BREAST: No significant suspicious finding. Benign-appearing calcifications are present. DIAGNOSTIC CATEGORY 2--BENIGN FINDING. NO CHANGE FROM COMPARISON. RECOMMENDATIONS: ROUTINE MAMMOGRAM AND CLINICAL EVALUATION IN 12 MONTHS. Dictated by: Lan Valdez MD on 08/06/2025 at 15:50 Approved by: Lan Valdez MD on 08/06/2025 at 15:57 Dictated By: Lan Valdez M.D. Signed By:08/06/25 1558 DD/ 1557 TD/TT: Explosives Worker: Authorizing ProviderResult TypeResult StatusCoremarco antonio Benz DOCLINISYNC IMAGINGFinal Result documented in this encounter Visit Diagnoses Not on filedocumented in this encounter Care Teams Team MemberRelationshipSpecialtyStart DateEnd Date Diaz Dalton MD [address] [place] [address] PCP - GeneralFamily Medicine09/25/23documented as of this encounter
--- OUTSIDE RECORDS SUMMARY | 2025-08-19 18:48 | XMS_ITS | Clinical Summary ---
Author Organization [facility] Address [address] [place] [address] Care Team Providers Care Delinquent Tax Collection Assistant Name Role Phone Diaz Dalton MD Primary Care Provider [phone] Allergies Active AllergyReactionsCriticalityNoted LjpiSnkbtnpwYjpuksiqwyp80/02/2025 Other Reaction(s): rash Kaogknhslnmyxqvi56/02/2025 Other Reaction(s): Rash Sulfamethoxazole-TrimethoprimHives,MgtigxzCvopel21/10/2012 Other Reaction(s): Other (See Comments) Myeaaxctoxha47/11/2025 Other Reaction(s): Rash Medications MedicationSigDispense QuantityRefillsLast FilledStart DateEnd DateStatus acyclovir [...] aerosol powder Inhale 1 puff in the morning.4Active fluconazole (Diflucan) 150 MG tablet Take 150 mg by mouth 1 (one) time4Active pantoprazole (ProtoNix) 40 MG EC tablet Indications:Gastroesophageal [...] Continuous Glucose Sensor (FreeStyle Crystal 3 Sensor) [facility] Indications:Type 2 diabetes mellitus with hyperglycemia, with long-term current use of insulin ([facility])USE TO MONITOR BLOOD SUGAR DIRECTED. CHANGE SENSOR EVERY 14 DAYS. 2 each 5Active Continuous Glucose Senior Telecommunications Engineer (FreeStyle Crystal 3 [place]) device Indications:Type 2 diabetes mellitus with hyperglycemia, with long-term current use of insulin ([facility])1 Application continuously 1 each 5Active buPROPion XL (Wellbutrin XL) 300 MG 24 hr tablet Indications:Panic disorder without agoraphobiaTAKE 1 TABLET BY MOUTH ONCE DAILY 30 tablet 5Active insulin aspart FlexPen (NovoLOG) 100 UNIT/ML pen Indications:Type 2 diabetes mellitus with hyperglycemia, with long-term current use of insulin ([facility])INJECT SUBCUTANEOUSLY THREE TIMES A DAY PER SLIDING SCALE; *30 TO 40 UNITS DAILY* 15 mL 5Active nabumetone (Relafen) 500 MG tablet Indications:Carpal tunnel syndrome of left wristTake 1 tablet (500 mg) by mouth 2 (two) times a day as needed for moderate pain 60 tablet 5Active insulin pen needle (Droplet Pen [place]) 32G x 4 mm [facility] Indications:Type 2 diabetes mellitus with microalbuminuria, with long-term current use of insulin ([facility])Use as instructed 200 each 5Active lisinopril 2.5 MG tablet Indications:Chronic heart failure with preserved ejection fraction (HFpEF) ([facility]) TAKE 1 TABLET BY MOUTH DAILY 30 tablet 5Active atorvastatin (Lipitor) 40 MG tablet Indications:DyslipidemiaTake 1 tablet (40 mg) by mouth Daily 30 tablet /6Active cholecalciferol (Vitamin D-3) 50 MCG (1999) tablet Indications:Vitamin D deficiencyTAKE 2 TABLETS BY MOUTH DAILY 60 tablet 5Active SUMAtriptan (Imitrex) 25 MG tablet Indications:Migraine without aura and without status migrainosus, not intractableTAKE 1 TABLET BY MOUTH NEEDED 9 tablet 5Active insulin glargine (Semglee) 100 UNIT/ML pen Indications:Type 2 diabetes mellitus with hyperglycemia, with long-term current use of insulin ([facility])Inject 20 Units under the skin in the [...] with long-term current use of insulin ([facility])Test daily 1 kit 5Active ofloxacin (Ocuflox) 0.3 [...] failure with preserved ejection fraction (HFpEF) ([facility]) Take 1 tablet (40 mg) by mouth Daily 30 tablet 505Active empagliflozin (Jardiance) 25 MG Indications:Type 2 diabetes mellitus with hyperglycemia, with long-term current use of insulin ([facility])Take 1 tablet (25 mg) by mouth Daily 30 tablet 505Active ibuprofen 800 MG tablet Indications:Pelvic pain in femaleTAKE 1 TABLET BY MOUTH EVERY 6 HOURS IF NEEDED FOR MILD PAIN FOR UP TO 30 DOSES 30 tablet 5Active Dulaglutide (Trulicity) 1.5 MG/0.5ML solution auto-injector Indications:Type 2 diabetes mellitus with hyperglycemia, with long-term current use of insulin ([facility])Inject 1.5 mg under the skin 1 (one) time per week 2 mL 5Active Continuous Glucose Sensor (FreeStyle Crystal 3 Sensor) misc Indications:Type 2 diabetes mellitus with hyperglycemia, with long-term current use of insulin ([facility])USE TO MONITOR BLOOD SUGAR DIRECTED. CHANGE SENSOR EVERY 14 DAYS. 1 each 5Active Misc. Devices misc Indications:Acute medial meniscus tear of left knee, initial encounter,Internal derangement of left kneeDispense: Front Wheeled walker use 90 days. Ht: 5'1 Weight: 206lb 1 Units 5Active ondansetron (Zofran) 4 MG tablet Indications:NauseaTAKE 1 TABLET BY MOUTH EVERY 6 HOURS NEEDED FOR NAUSEA & VOMITING 30 tablet 5Active fluconazole (Diflucan) 150 MG tablet Indications:Yeast infectionTake 1 tablet (150 mg) by mouth 1 (one) time for 1 dose Repeat in 7 days if symptoms persist. 2 tablet 5Active ondansetron (Zofran) 4 MG tablet Indications:NauseaTAKE 1 TABLET BY MOUTH EVERY 6 HOURS NEEDED FOR NAUSEA OR VOMITING 30 tablet 308/5109/23/2024Discontinued Active Problems ProblemNoted DateDiagnosed DateEncounter for long-term (current) use of qikyunoresq38/09/7979Xnnlwwpsmhj38/24/2025 Assessment & Plan (10/28/2024 2:54 PM EST): Improved after IV fluids and monitor. Continue with increased fluid intake. Nausea & kruaujwo10/24/2025 Assessment & Plan (10/28/2024 2:54 PM EST): Use zofran PRN. Pulmonary myinweslbtgg57/03/2024 Assessment & Plan (08/06/2024 12:07 PM EST): Continued SOB and follow with specialists. Moderate persistent asthma without dwxrhreusdwt37/17/2024Type 2 diabetes mellitus with hyperglycemia, with long-term current use of jnechui6602/12/2024 Assessment & Plan (02/10/2025 2:01 PM EDT): [...] ADA diet and limit carbs. Obesity hypoventilation tkmufysx23/02/2024 Assessment & Plan (02/12/2024 3:23 PM EDT): Seen by pulmonology and complete testing. Follow up as scheduled. Assessment & Plan (01/04/2024 12:33 PM EDT): Recent hypoxia likely related to weight. Need to change diet and lose weight. Benign essential czchwgsguluo95/02/2024 Assessment & Plan (02/10/2025 1:59 PM EDT): BP controlled and monitor PRN. Assessment & Plan (01/04/2024 12:34 PM EDT): BP elevated but no history of HTN. Monitor PRN. Right carpal tunnel nwcideup70/02/2024 Assessment & Plan (05/29/2024 11:15 AM EDT): [...] and continue. Genital warts04/06/2023Hot flashes due to bgszdsizk72/03/2023Type 2 diabetes mellitus with microalbuminuria, with long-term current use of pgqiwcu3404/06/2023 Assessment & Plan (05/29/2024 11:14 AM EDT): [...] and sliding scale. Internal derangement of left kbprihsr49/03/2023Irritable bowel syndrome with gfrlbgqe55/03/2023 Assessment & Plan (02/12/2024 3:22 PM EDT): Occasional symptoms and use bentyl PRN. Assessment & Plan (11/02/2023 4:10 PM EST): Occasional symptoms and use bentyl PRN. Migraine without aura and without status migrainosus, not nuzbkmvgjnj75/03/2023 Assessment & Plan (11/02/2023 4:11 PM EST): CARPIO stable and continue medication. Use imitrex PRN. Mild episode of recurrent major depressive uzqjisyl30/03/2023 Assessment & Plan (02/10/2025 2:00 PM EDT): [...] script for rolling walker to patient. Overactive dzwctsh1704/06/2023lass 3 severe obesity due to excess calories with serious comorbidity and body mass index (BMI) of40.0 to 44.9 in adult11/21/2022 Assessment & Plan (02/10/2025 1:59 PM EDT): Weight loss indicated. Assessment & Plan (11/07/2024 10:47 AM EST): Weight loss indicated. Assessment & Plan (10/28/2024 2:55 PM EST): Weight loss indicated. Mild developmental delay09/29/2021Type 2 diabetes mellitus with polyneuropathy 06/10/2021pondylosis without blxprtfvno70/07/2010 Assessment & Plan (05/13/2024 2:50 PM EDT): Increased pain and start flexeril. Zvlsemazxauk93/19/2010Panic disorder without tzgaeyoojtf01/11/2010llergic rhinitis due to endafslj36/28/2010GAD (generalized anxiety disorder)10/01/2009 Assessment & Plan (02/10/2025 [...] continue. Use ativan PRN. Obstructive sleep apnea jolwgugu47/27/2010 Resolved Problems ProblemNoted DateDiagnosed DateResolved DateAcute pain of right knee05/29/2024 08/06/2024 Assessment & Plan (05/29/2024 11:14 AM EDT): Recent fall and continued pain. X-ray negative. Start PT and ice PRN. Continue relafen and flexeril. Chronic hypoxic respiratory /02/2025 Assessment & Plan (10/28/2024 2:55 PM EST): On home oxygen and follow with pulmonology. Assessment & Plan (08/06/2024 12:07 PM EST): On home oxygen and follow with pulmonology. Assessment & Plan (05/13/2024 2:49 PM EDT): On home oxygen and follow with pulmonology. Kcvmgoo85/02/2025 Assessment & Plan (01/04/2024 12:33 PM EDT): [...] with CT surgeon. Acute pain of left znsmuebj67/arpal tunnel syndrome of left wrist/05/2024 Assessment & Plan (02/12/2024 3:21 PM EDT): Able to proceed with surgery at low risk for complications. Reports BS improved and will monitor A1C. Needs clearance from pulmonology. Other chronic painMissed olthwp45ubital tunnel syndrome on left/03/2023 Overview (04/06/2023): Added automatically from request for surgery [id number] Acute kidney injury (DREW) with acute tubular necrosis (ATN) High anion gap metabolic obphhywy38neumonia due to infectious qdqrphxw51KA, type 1, not at goalShoulder joint painHyperglycemiaFecal weklvoqcfbfz36oorly controlled diabetes xywclipf10/07/2015 08/10/2023Normal gynecologic tiamszarpgz21onvulsions in the vystkjl88Mild intellectual avynqiccnw51Type 2 diabetes qhvolriu15 Encounters DateTypeDepartmentCare GafwEvmddosuftt53/16/2025 2:00 PM ESTOffice Visit [facility] [address] [facility] [address] Erik Benz, DO Well woman exam with routine gynecological exam; Pre-op evaluation; Pelvic pain; Genital warts; Pain of ovary; Yeast flohsrrzr81/16/2025amboo flowsheet [facility] [address] [facility] [address] Erik Benz, DO 08/06/2025linisync Result Encounter [facility] External Department Unsolicited Erik Benz, DO 07/23/2025Refill [facility] [address] [facility] [address] Romana Poole NP Obilmw6106/13/2025Telephone [facility] [address] [place] [address] Renetta Simons MA Xjatgde8106/05/2025Orders Only [facility] [address] [place] [phone] Renetta Simons MA Internal derangement of left knee (Primary Dx); Acute medial meniscus tear of left knee, initial egpgvhyuy78/02/2025bstract [facility] [address] [place] [phone] Sonal Mars MA 06/05/2025Telephone [facility] [address] [place] [address] Arlene Mullen LPN 06/05/2025[facility]phone [facility] [address] [facility] [place] [phone] Jr. Leoncio Jackson, DO Wants her medications after surgery to be called in at [facility]06/05/2025Results Follow-Up [facility] [address] [place] [address] Cholo Strong PA ALL BASIC METABOLIC PANEL06/05/2025linisync Result Encounter [facility] External Department Unsolicited Erik Benz DO 06/05/2025linisync Result Encounter [facility] External Department Unsolicited Cholo Strong PA 06/04/2025Telephone [facility] [address] [facility] [place] [phone] Jr. Leoncio Jackson, DO About her prescription for 2 wheel pfnzyy1506/03/2025 1:30 PM EDTOffice Visit [facility] [address] [facility] [place] [phone] Cholo Strong PA Pre-op examination (Primary Dx)06/03/2025Orders Only [facility] [address] [facility] [place] [phone] Renetta Simons MA Pre-op examination (Primary Dx)06/03/2025amboo flowsheet [facility] [address] [place] [address] Cholo Strong PA 06/03/20259307Nccxeo16/25/2025Telephone [facility] [address] [place] [address] Jr. Leoncio Jackson, DO ? ukmlwlq5505/26/2025 1:20 PM EDTConsult [facility] [address] [place] [phone] Erik Benz, Pre-op examination; Pelvic pain; Genital warts; Pain [...] InformationValueDate RecordedSex Assigned at BirthNot on fileLegal CfyLsahps12/15/2023 6:38 PM EDTGender IdentityNot on fileSexual OrientationNot on file Last Filed Vital Signs Vital SignReadingTime TakenCommentsBlood Zkdwjmhw442/8212/ 1:32 PM EST Ytabi009302/10/2025 1:23 PM QTJDexrpfbfwrn58.3 ??C (97.3 ??F)02/10/2025 1:23 PM EDTRespiratory Uakg659102/10/2025 1:23 PM EDTOxygen Ouoocbukyq94%02/10/2025 1:23 PM EDTInhaled Oxygen Concentration--Whruth699 kg (232 lb)08/19/2025 1:32 PM EST Ulmtrt121.9 cm (5' 1 )06/03/2025 1:24 PM EDTBody Mass Index43.8406/03/2025 1:24 PM EDT Plan of Treatment Health MaintenanceDue DateLast DoneCommentsCT Ywnhbkwyqpnj1979FIT-DNA 1979FIT1979FOBT1980 3209Ookyemjrxovus1979COVID-19 Vaccine ( season), 06/09/2021Influenza Vaccine (#1) /08/2020, 05/20/2019, 04/22/2017, Additional history existsMammogram 6110/07/2024, 06/30/2024, 06/30/2023, Additional history exists HPV/Nwjmkb6107/14/2027Cervical Cancer Xemloxwfd54/03/2027Pap Smear08/06/2027 08/06/2024, 08/01/2023, 1811Dkxftkqbbgf31/09/35555009/12/2024, 09/12/2024, 09/12/2024, Additional history existsColorectal Cancer Gylcnvtqg72/09/2035 Pneumococcal Vaccine: Pediatrics (0 to 5 Years) and At-Risk Patients (6 to 64 Years)Aged Out12/18/2023No longer eligible based on patient's age to complete this topic Procedures Procedure NamePriorityDate/TimeAssociated DiagnosisCommentsMM TOMOSYNTHESIS SCREENING BI08/06/2025 3:57 PM EST ALL BASIC METABOLIC OEAERHwgfvts69/02/2025 8:59 AM EDT ECG 12-LEAD06/05/2025 6:56 AM EDT XXWVMUBKMDJGhvmnrt41/09/2025 11:13 AM ESTPAP JOMJEXlneirv17/03/2024 12:00 AM EST from Last 3 Months or Most Recently Relevant to Health Maintenance Results * MM TOMOSYNTHESIS SCREENING BI (08/06/2025 3:57 PM EST)Anatomical Region LateralityModalityOtherSpecimen (Source)Anatomical Location / Laterality Collection Method / VolumeCollection TimeReceived Time08/06/2025 3:57 PM EST Narrative 08/06/2025 3:58 PM EST [facility] ?[address] ? [place], [facility] ? Mammography Report ? Signed ? Patient: ACRISSA LOZADA ?MR#: [id number] ?? : 1980 ?Acct:[id number] ?? Age/Sex: 45 / F ?ADM Date: 08/06/25 ?? Loc: MAMMO ? Attending Dr: Erik Benz D.O. ? Ordering Physician: Erik Benz D.O. ?Results: ? Date of Service: 08/06/25 ?Follow Up: ? Procedure(s): MM tomosynthesis screening BI ?? Accession Number(s): [id number] ? cc: Erik Benz D.O.; Diaz Dalton M.D. ? Patient Name: ? CARISSA LOZADA ? MR#: [id number] ? : 1980 ? Exam Date: 08/06/2025 ?? Ordering Doctor: DR ERIK BENZ . ? RADIOLOGY REPORT ? PROCEDURE: [...] Cancers ? None ? LOCATION: ? [facility] ? BREAST COMPOSITION: ? There are [...] 1558 ? DD/ 1557 ? TD/TT: ? Edge Trimmer Mechanic: Procedure Note Radiology, Radiologist, MD - 08/06/[address] [address] Mammography Report Signed Patient: CARISSA LOZADA R#: [id number] : 1980Acct:[id number] Age/Sex: 45 / FADM Date: 08/06/25 Loc: MAMMO Attending Dr: Erik Benz D.O. Ordering Physician: Erik Benz D.O.Results: Date of Service: 08/06/25Follow Up: Procedure(s): MM tomosynthesis screening BI Accession Number(s): [id number] cc: Erik Benz D.O.; Diaz Dalton M.D. Patient Name: CARISSA LOZADA MR#: [id number] : 1980 Exam Date: 08/06/2025 Ordering Doctor: DR ERIK BENZ . RADIOLOGY REPORT PROCEDURE: MM TOMOSYNTHESIS [...] Treatments None Family Cancers None LOCATION: [facility] BREAST COMPOSITION: There are scattered areas [...] M.D. Signed By:08/06/25 1558 DD/ 1557 TD/TT: Edge Trimmer Mechanic: Authorizing ProviderResult TypeResult StatusCorey Demar DOCLINISYNC IMAGINGFinal Result * (ABNORMAL) ALL BASIC METABOLIC PANEL (06/05/2025 8:59 AM EDT)ComponentValueRef RangeTest MethodAnalysis TimePerformed AtPathologist CsiicoohjXFJQKZ258(L)136 - 145 mmol/LTBHPOTASSIUM4.53.5 - 5.1 mmol/FIWYLWAEVHNR6295 - 107 mmol/LTBH CARBON VFVZGUS20.621.0 - 32.0 mmol/LTBHANION GAP7.9YBUXYDXBKC269(H)74 - 106 mg/dLTBHBLOOD UREA SOUAYBOH75.0(H)7.0 - 18.0 mg/dLTBHCREATININE0.940.55 - 1.02 mg/dLTBHTBH EGFR-AF TRINIDADIAN>60>=60 mL/min/1.73m 2TBHTBH EGFR-NON AF TRINIDADIAN >60>=60 mL/min/1.73m 2TBHBUN CREATININE RATIO26.3FWPJXBJRZA8.08.5 - 10.1 mg/dL TBHSpecimen (Source)Anatomical Location / LateralityCollection Method / Volume Collection TimeReceived Time06/05/2025 8:59 AM EDT1 9:02 AM EDT Narrative CLINISYNC - 06/05/2025 10:54 AM EDT Authorizing ProviderResult TypeResult StatusMatthocking valley community hospital Aldo [facility] HospitalCFinal ResultPerforming OrganizationAddressCity/State/[facility]ENTERB CodePhone Number [facility] * ECG 12-LEAD (06/05/2025 6:56 AM EDT)Anatomical RegionLateralityModalityOther Specimen (Source)Anatomical Location / LateralityCollection Method / Volume Collection TimeReceived Time06/05/2025 6:56 AM EDT Narrative 06/05/2025 11:48 AM EDT [facility] ?[address] ? [place] [address] ? Electrocardiograph Report ? Signed ? Patient: CARISSA LOZADA ?MR#: [id number] ?? : 1980 ?Acct:[id number] ?? Age/Sex: 44 / F ?ADM Date: 06/05/25 ?? Loc: PST ? Attending Dr: Erik Benz D.O. ? Ordering Physician: Erik Benz D.O. ?? Date of Service: 06/05/25 ?? Procedure(s): ECG 12 lead ?? Accession Number(s): [id number] ? cc: ?[facility] ? Test Date: ?2025-06-05 ?? Pat Name: ? CARISSA NEVILLE ?Department: ? Room: ? - ?? Gender: ? Female ? Sap Pi Architect: ? : ?1980 ? Requested By: ERIK BENZ ?? Order Number: [id number] ?Reading MD: ?? LEONCIO ??ALBERTUKASAJAN, M.D. ? Measurements ?? Intervals ?[place] ? Rate: ? 85 ? P: ?62 ?? WA: ? 151 ?QRS: ?109 ?? QRSD: ? [...] Dictated By: ?LEONCIO TORRES ? Signed By: ?10/02/25 1148 ? DD/ 0656 ? TD/TT: ? Edge Trimmer Mechanic: Procedure Note Radiology, Radiologist, - 06/05/2025 [place] [address] Electrocardiograph Report Signed Patient: CARISSA LOZADA R#: [id number] : 1980Acct:[id number] Age/Sex: 44 / FADM Date: 06/05/25 Loc: [facility] Attending Dr: Erik Benz D.O. Ordering Physician: Erik Benz D.O. Date of Service: 06/05/25 Procedure(s): ECG 12 lead Accession Number(s): [id number] cc: [facility] Test Date: 2025-06-05 Pat Name: CARISSA LOZADA Department: Room: - Gender: Female Sap Pi Architect: : 1980 Requested By: ERIK BENZ Order Number: [id number] Sangeetha MD: LEONCIO TORRES M.D. Measurements Intervals [place] Rate: 85 P: 62 [place]: 151 QRS: 109 QRSD: 89 T: 82 [...] TORRES Signed By:06/05/25 1148 DD/ 0656 TD/TT: Edge Trimmer Mechanic: Authorizing ProviderResult TypeResult StatusCorey Demar DOCLINISYNC IMAGINGFinal Result * Colonoscopy (09/12/2024 11:13 AM EST)Anatomical RegionLateralityModality Endoscopy Narrative Authorizing ProviderResult TypeResult StatusMichael Grillis DOENDOSCOPY PROCEDURE ORDERABLESFinal Result * Pap Smear (08/06/2024 12:00 AM EST)Specimen (Source)Anatomical Location / LateralityCollection Method / VolumeCollection TimeReceived TimeSwabCervical swab / Unknown Narrative Authorizing ProviderResult TypeResult StatusFazio Nurse [facility] ObLAB CYTOLOGY ORDERABLESFinal ResultPerforming OrganizationAddressCity/State/ZIP CodePhone Number EXTERNAL LAB from Last 3 Months or Most Recently Relevant to Health Maintenance Insurance * Guarantor: Carissa Lozada TypeRelation to PatientDate of BirthPhone Billing AddressPersonal/VekoccGcdl1980 [address] [address] Care Teams Team MemberRelationshipSpecialtyStart DateEnd Date Diaz Dalton MD [address] [place] [phone] PCP - GeneralFamily Medicine09/25/23
--- OUTSIDE RECORDS SUMMARY | 2025-08-19 18:48 | XMS_ITS | Encounter Summary ---
Author Organization [facility] Address [address] [place] [address] Care Team Providers Care Airport Operations Duty Manager Name Role Phone Diaz Dalton MD Primary Care Provider [phone] Encounter Details DateTypeDepartmentCare Team (Latest Contact Info)Ermxjgsahbx75/16/2025Bamboo flowsheet [facility] [address] [place] [phone] Feliz Benz DO [address] [facility] [address] [place] [place], [place] [phone] Social History Tobacco UseTypesPacks/DayYears UsedDateSmoking Tobacco: NeverSmokeless Tobacco: NeverAlcohol UseStandard Drinks/WeekCommentsNever0 (1 standard drink = 0.6 oz pure alcohol)Caffeine: 1-2 cups/day , mountain dew occasionallyComments NoSex and Gender InformationValueDate RecordedSex Assigned at BirthNot on file Legal KbwRaxtcd16/15/2023 6:38 PM EDTGender IdentityNot on fileSexual OrientationNot on filedocumented as of this encounter Plan of Treatment Not on file documented as of this encounter Visit Diagnoses Not on filedocumented in this encounter Care Teams Team MemberRelationshipSpecialtyStart DateEnd Date Diaz Dalton MD [address] [place] [address] PCP - GeneralFamily Medicine09/25/23documented as of this encounter
--- OUTSIDE RECORDS SUMMARY | 2025-08-19 18:48 | XMS_ITS | Clinical Summary ---
Author Organization [facility] tem Address [id number] [address] [place] [address] Care Team Providers Care Managing Director Name Role Phone Diaz Dalton MD Primary Care Provider [phone] Allergies Active AllergyReactionsCriticalityNoted DateComments Sulfamethoxazole-TrimethoprimHives,Itching,Other (See Comments)Mimlix1212/13/2011 Medications MedicationSigDispense QuantityRefillsLast FilledStart DateEnd DateStatus atorvastatin [...] hyperglycemia, with long-term current use of insulin ([facility] [place]Inject 5 mg under the skin every 7 [...] pen injector INJECT 0.75 MG SUBCUTANEOUSLY ONCE [id number] Active Problems ProblemNoted DateDiagnosed DateHTN (hypertension)5Chronic heart failure with preserved ejection /03/2025COPD (chronic obstructive pulmonary disease)4BMI 40.0-44.9, adult4Pulmonary piibqevcokik39/17/2024 Moderate persistent asthma without isxgteqhptne65/17/2024Chronic hypoxic respiratory uwqzmmo5002/19/2024ulmonary epzhcr8102/08/2024yspnea on exertion 02/08/2024cute cystitis without ahxwiaobo38/18/2024Mediastinal lymphadenopathy 11/09/2023Hyperlipidemia associated with type 2 diabetes degqrhlr78/09/2023 Abnormal ECG during exercise stress test07/13/2023hest wall pain06/04/2023 Gastroesophageal reflux jymwoqp3104/06/2023Mild developmental delay09/29/2021 Sqftglbuvxkhn59/28/9056Bewcw61/30/8595Hbrjyuxtkjlx02/19/2010Type 2 diabetes mellitus with hyperglycemia, with long-term current use of scfereq6609/30/2009 Obstructive sleep apnea tzgidsks10/27/2010 Resolved Problems ProblemNoted DateDiagnosed DateResolved DateCOPD ykvthwvlsfwg82/17/2024 10/07/2024Severe obesity (BMI >= 40)Unstable angina pectoris Encounters DateTypeDepartmentCare PmroAlwkndsqmgk49/17/2025Refill [facility] [address] [place] [address] Eddie Zurita, FEATHEREDGER AND REDUCER MACHINE-CRUSHER LOADER OPERATOR 07/21/2025Refill [facility] [address] [place] [address] Eddie Zurita, FEATHEREDGER AND REDUCER MACHINE-CRUSHER LOADER OPERATOR 07/21/2025Refill [facility] [address] [place] [address] Eddie uZrita, FEATHEREDGER AND REDUCER MACHINE-CRUSHER LOADER OPERATOR 07/07/2025 9:30 AM ESTOffice Visit [facility] [address] [place] [phone] Adriane Woods, FEATHEREDGER AND REDUCER MACHINE-CRUSHER LOADER OPERATOR Chasidy Lai PA-C Pure hypercholesterolemia (Primary Dx); Chronic heart failure with preserved ejection fraction ([facility])07/07/2025Travel 07/04/2025Telephone [facility] [address] [place] [phone] Bethanie Ro MA 06/09/2025Telephone [facility] [address] [place] [phone] Maria C Bailey RN Surgical Or Dental Hhltlmetd70/06/2025Orders Only [facility] [address] [place] [phone] External, Scanning Provider from Last 3 Months Immunizations ImmunizationAdministration DatesNext CdwMlor8404/09/2021 Family History Medical HistoryRelationNameCommentsCancerFatherDiabetesMotherHeart attackMother Anesthesia problemsNeg HxRelationNameStatusCommentsFatherDeceasedMotherAlive Social History Tobacco UseTypesPacks/DayYears UsedDateSmoking Tobacco: NeverSmokeless Tobacco: NeverAlcohol UseStandard Drinks/WeekCommentsNot Currently0 (1 standard drink = 0.6 oz pure alcohol)[facility] UtilitiesAnswerDate RecordedIn the past 12 months has the electric, gas, oil, or water [email or web address] threatened to shut off services in your home?No07/21/2024Social Connection and Isolation PanelAnswerDate RecordedIn a typical week, how many times do you talk on the phone with family, friends, or neighbors?More than three times a week12/20/2023How often do you get together with friends or relatives?More than three times a week12/20/2023How often do you attend adventism or zoroastrianism services?Never12/20/2023o you belong to any clubs or organizations such as adventism groups, unions, fraternal or athletic groups, or school groups?No12/20/2023How often do you attend meetings of the clubs or organizations you belong to?Never12/20/2023re you , , , , never , or living with a partner?Rxdheia7012/20/2023UDIT-C AnswerDate RecordedQ1: How often do you have [...] and heating?Not hard at all12/20/2023 PHQ-2AnswerDate RecordedTotal Smwvh437[facility] [place] of Occupational Health - Occupational Stress QuestionnaireAnswerDate RecordedDo you feel stress - tense, restless, nervous, or anxious, or unable to sleep at night because your mind is troubled all the time - these days?Only a ghbasp9512/20/2023Exercise Vital SignAnswerDate RecordedOn average, how many days [...] part of a household?No07/21/2024hildcareAnswerDate RecordedDo problems getting exceptional 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 for you to work [...] InformationValueDate RecordedSex Assigned at BirthNot on fileLegal OptLvpkjd13/06/2015 11:24 AM EDT Gender IdentityNot on fileSexual OrientationNot on file Last Filed Vital Signs Vital SignReadingTime TakenCommentsBlood Jrdcbaqc840/7807/07/2025 9:21 AM EST Zkruk311707/07/2025 9:21 AM QFASqbiiumwpsa53.9 ??C (98.4 ??F)10/27/2024 3:00 PM ESTRespiratory Tcma272710/27/2024 6:57 PM ESTOxygen Rghfmslcui599%05/14/2025 11:54 AM EDTArrived on 3Lnc of G9Cwdodeu Oxygen Concentration--Uxxpph502.6 kg (224 lb) 07/07/2025 9:21 AM LILRradvl829.9 cm (5' 1 )07/07/2025 9:21 AM ESTBody Mass Index42.32109/06/2024 9:21 AM EST Plan of Treatment DateTypeDepartmentCare Team (Latest Contact Info)Xjqyvwhyfww01/12/2026 9:45 AM EDTOffice Visit [facility] [address] [place] [address] Cristina Arrieta, [address] [address] Health MaintenanceDue DateLast DoneCommentsDiabetic Ophthalmology Exam1979 Statin Use: Ifqeivrs1979Adult BMI Follow Up Plan1997Diabetic Foot Exam1997Depression Eqleawxqf20/OVID-19 Vaccine ( season), 06/09/2021Influenza Idzcvvt4505/05/2025 06/15/2020, 05/20/2019, 04/22/2017, Additional history existsTobacco Screening /dult BMI Wuufnoavx76/03/478837/11/2024Pap Smear08/06/2027 08/06/2024, 08/01/2023, 07/14/20227137Akrssornxgj75, 09/12/2024, 09/12/2024DTaP,Tdap and Td Vaccines (2 - Td or Tdap) Goals GoalPatient Goal TypeAssociated ProblemsRecent ProgressPatient-Stated?Author Home with [facility] care Stacey Leger, RN Note: Evaluation of progress towards goal: Patient plans to return home with self care. Medical Devices Not on file Procedures Procedure NamePriorityDate/TimeAssociated DiagnosisCommentsECG 12-LEADRoutine 06/05/2025 10:31 AM EDTPROVATION OXIILIFYIPMAmffyzg92/09/2025 9:04 AM EST from Last 3 Months [...] to Health Maintenance Insurance * Guarantor: Carissa MillerAccount TypeRelation to PatientDate of PhoneBilling AddressPersonal/RumaozBxgh[address] [address] Advance Directives * Full Code (Latest Code Status on File) Date ActivatedDate WbzebjnfiegTsvnfhxb74/17/2024 10:40 PM07/23/2024 7:57 PM * Full Code Date ActivatedDate InactivatedComments4/ 10:13 PM12/23/2023 5:45 PM * Full Code Date ActivatedDate UeunglyitubBzzxgfea61/2/2023 6:38 AM06/05/2023 7:25 PM * Full Code Date ActivatedDate InactivatedComments03/02/2019 2:48 PM03/03/2019 5:59 PM Care Teams Team MemberRelationshipSpecialtyStart DateEnd Date Diaz Dalton MD [facility] - [facility]/24
== END 2025-08-19 18:45 | disposition home or self-care (01) ==
LOC: LAB 18:44
PROVIDERS: PCP Family Medicine; Visit Provider Obstetrics & Gynecology
DX: Z01.419 Encounter for gynecological examination (general) (routine) without abnormal findings (principal)
CPT/HCPCS: 88175